=== PATIENT | male | born 1935 | race Caucasian/White ===

== ENCOUNTER 2017-09-06 07:03 | Day surgery (SDC) | payer MEDICARE, SELFPAY ==
[2017-09-03 10:33] LABS: Hematocrit 44.5 % (40-54); Hemoglobin 15.4 g/dl (13.0-16.5); Mean Corp Hgb Conc 34.6 g/gl (32-36); Mean Corpuscular Volume 89.7 fL (80-94); Platelet Count 198 K/mm3 (150-450); RBC Distribution Width CV 14.3 % (11.6-14.6); RBC Distribution Width SD 46.1 fl (35.1-43.9); Red Blood Count 4.96 M/mm3 (4.6-6.2); White Blood Count 8.6 K/mm3 (4.4-11.0)
[2017-09-03 10:34] LABS: Scan Indicated on CBC? Y/N NO
[2017-09-03 10:56] LABS: Anion Gap 6 (5-15); BUN 16 mg/dL (7-18); BUN/Creat Ratio 16.5 RATIO (10-20); Calcium,Total 8.9 mg/dL (8.5-10.1); Chloride 109 mmol/L (98-107); Creatinine, Serum 0.97 mg/dL (0.70-1.30); EST Glomerular Filtration Rate 80 mL/min (>60); Est Glom Filt Rate - Afr Amer 96 mL/min (>60); Glucose 112 mg/dL (74-106); Potassium 3.7 mmol/L (3.5-5.1); Sodium Level 143 mmol/L (136-145)
[2017-09-06 10:46] LABS: ACT Activated Clotting Time 142 sec (74-137)
[2017-09-06 10:46] LABS: ACT Activated Clotting Time 263 sec (74-137)
--- NOTE | 2017-09-06 11:03 | OP.PCM_ITS ---
Problem List (1) PAD (peripheral artery disease) Status: Acute Report of Operation Date of Procedure: 09/06/17 Pre-Operative Diagnosis: Stenosis distal left superficial femoral artery with symptomatic claudication Post-Operative Diagnosis: Same Surgery/Procedure Performed:: Abdominal pelvic left lower extremity arteriogram with 5 x 2 Powerflex and 6 x 6 coated balloon gluten ox therapy Description of Surgical Findings:: Amount and informed consent was obtained. 81-year-old gent was taken to special procedures lab. Throughout the procedure he received total 50 mcg of fentanyl 2 mg of Versed is intravenous sedation. Timeout and informed consent was obtained. The right groin was sterilely prepped draped. 2% lidocaine was used as local anesthetic. 2% lidocaine was instilled under ultrasound guidance. Micropuncture is instilled needle was inserted under ultrasound guidance into the right common femoral artery. Micropuncture sheath inserted. 035 J-wire was inserted 5 American short sheath dilator was inserted. Using 035 angled Glidewire and a 5 American universal flush catheter was placed into the abdominal aorta. Using 15 cc a second for 15 cc of Visipaque contrast aortogram was obtained in the AP view. This demonstrated moderate mild 30% stenosis of the proximal right common iliac. Otherwise bilateral common iliacs external iliacs and internal iliacs appeared patent. With significant difficulty at this point and throughout the procedure the flush catheter was used to gain access to the left iliac system however due to the tortuosity of the right common iliac and the acute angulation of the aorta getting devices to track over the aorta was challenging. I was able to put the flush catheter. I was able to obtain a study of the left superficial femoral artery demonstrating a widely patent short stent 6 mm stent in the distal left SFA. However just at the top of the patella there was a high-grade 95% stenosis of the SFA/ popliteal. There did appear to be initial three-vessel runoff. With effort then I was able to place a stiff guidewire then placed a burn catheter but it would not advance I then placed an 035 Quick cross catheter was able to utilize the floppy guidewire and a 035 stiff Glidewire and a 035 Magic wire and was very eventually able to get purchase enough to then advance a 5 American 45 cm sheath. Having achieved that the patient received 8000 units of heparin. Over a stiff Glidewire I was able to place a 5 x 2 Powerflex balloon into the distal left SFA/proximal popliteal angioplasty was performed up to 14 dipesh of pressure. Completion view demonstrated just mild residual stenosis. I then placed a 6 x 60 mm Lutonx drug-coated balloon. That was inflated to 10 dipesh of pressure and held for 3 minutes. Lesion view was obtained demonstrating patency. Images demonstrate a patent aorta. Mild diffuse disease of bilateral common iliacs. 30% stenosis of the right proximal common iliac. Patent left common femoral artery profundofemoral artery and superficial femoral artery. There is a 6 x 30 mm stent distally in the left superficial femoral artery that is widely patent. There is an area of 95% stenosis of the distal left superficial femoral artery just at the popliteal. There is three-vessel runoff to the left lower extremity. Subsequent to the angioplasty and drug-coated balloon therapy of the distal left superficial femoral artery proximal popliteal artery lesion there appears to be good resolution. Impression successfully treated distal left superficial femoral artery/ popliteal graft Quan Mackenzie M.D., F.A.C.S. Type of Anesthesia:: IV Sedation
[2017-09-06 15:45] VITALS: BP 150/76; PULSE 74; RESP 12; TEMP 36.7; O2SAT 88
[2017-09-06 16:16] VITALS: BP 154/68; PULSE 74; RESP 12; O2SAT 92
[2017-09-06 16:45] VITALS: BP 177/65; PULSE 82; RESP 12
[2017-09-06 17:11] VITALS: PULSE 85; RESP 12; O2SAT 91
[2017-09-06 17:49] VITALS: BP 148/76; PULSE 77; RESP 12; O2SAT 94
[2017-09-06 18:34] VITALS: BP 162/78; PULSE 84; RESP 12
--- NOTE | 2017-09-06 18:35 | NURSING ---
PT UP AMB. TO BR VOIDED, WASHED UP RETURNED TO BED. NO DIZZINESS LIGHTHEADNESS. GROIN RECHECK D&I. ASSISTING WITH DRESSING.
== END 2017-09-06 18:40 | disposition home or self-care (01) ==
LOC: CLSP 07:05 → PCU 15:50
PROVIDERS: Family Provider Family Medicine; PCP Family Medicine; Visit Provider Surgery
DX: I73.9 Peripheral vascular disease, unspecified (principal); I70.212 Atherosclerosis of native arteries of extremities with intermittent claudication, left leg; I10 Essential (primary) hypertension; E78.5 Hyperlipidemia, unspecified; K21.9 Gastro-esophageal reflux disease without esophagitis; N40.0 Benign prostatic hyperplasia without lower urinary tract symptoms; F41.9 Anxiety disorder, unspecified; Z79.82 Long term (current) use of aspirin; Z79.899 Other long term (current) drug therapy; Z87.891 Personal history of nicotine dependence
CPT/HCPCS: 36200; 36245; 36415; 37224; 75625; 75710; 76937; 80048; 85027; 85347; 99152; 99153; C1725; J7030; J7040; Q9967; C1760; C1769; C1887; C1894

== ENCOUNTER → 2017-09-21 15:52 | Outpatient (CLI) | payer MEDICARE, SELFPAY ==
[2017-09-21 15:57] LABS: Mucous, Urine 0 SEEN /hpf (<or=2+)
[2017-09-21 16:02] LABS: Color, Urine Red (Yellow); Glucose, Dipstick Normal (Normal); Ketone-Dipstick 5 mg/dl (Negative); Leukocyte Esterase-Dipstick 500 /ul (Negative); Nitrite-Dipstick Positive (Negative); Occult Blood-Urine 250 /ul (Negative); Protein-Dipstick 100 mg/dl (Negative); Specific Gravity, Urine 1.015 (1.002-1.030); Urine Bilirubin Dipstick Negative (Negative); Urine Clarity Cloudy (Clear); Urine Urobilinogen 1 mg/dl (Normal)
[2017-09-21 16:33] LABS: Red Blood Cells-Urine > 100 SEEN /hpf (0-5); White Blood Cells >100 SEEN /hpf (0-5)
[2017-09-21 16:34] LABS: Bacteria 4+ /hpf (None Seen); Squamous Epithelial Cells - UA 0-5 SEEN /hpf (0-5)
== END ==
PROVIDERS: Family Provider Family Medicine; PCP Family Medicine; Visit Provider Physician Assistant
DX: R31.9 Hematuria, unspecified (principal)
CPT/HCPCS: 81001; 87086; 87088; 87186

== ENCOUNTER → 2017-10-01 09:40 | Outpatient (CLI) | payer MEDICARE, SELFPAY ==
--- NOTE | 2017-10-01 17:33 | LEAS ---
Arterial Study - Arterial Study Arterial Study: Bilateral lower extremity noninvasive arterial exam with exercise Patient with peripheral vascular occlusive disease and recent left lower extremity endovascular intervention with stenting Right lower extremity The right PT and DP ankle-brachial digit rest are 1.1 and 0.96 respectively with triphasic Doppler waveforms. Volume pulse recordings demonstrate normal amplification the calf and the ankle and digital waveforms are well maintained. With exercise the right LISA goes from 1.012 medially after exercise at 0.92 which demonstrates a minimal decline. Left lower extremity Left lower extremity at rest demonstrates PT and DP ankle-brachial indices rest of 1.08 and 1.08 respectively. Left PT and DP ankle-brachial indices at rest are triphasic. Volume pulse recordings demonstrate normal waveform at the calf ankle and digital level. With exercise left LISA goes from resting 1.08 after exercise at 1.1 which is completely normal Impression Findings consistent with normal right lower extremity resting indices with minimal decline on exercise. Left lower extremity demonstrates normal indices with rest and exercise consistent with no hemodynamic dynamically significant vascular occlusive disease Quan Mackenzie M.D., F.A.C.S.
== END ==
PROVIDERS: Family Provider Family Medicine; PCP Family Medicine; Visit Provider Surgery
DX: I73.9 Peripheral vascular disease, unspecified (principal)
CPT/HCPCS: 93924

== ENCOUNTER → 2017-10-11 18:30 | Outpatient (CLI) | payer MEDICARE, SELFPAY | PROVIDERS: Family Provider Family Medicine; PCP Family Medicine; Visit Provider Nurse Practitioner Adult Health | DX: N39.0 Urinary tract infection, site not specified (principal); R31.9 Hematuria, unspecified | CPT/HCPCS: 87077; 87086; 87088; 87186 ==

== ENCOUNTER 2019-08-22 09:59 | Emergency (ER) | payer MEDICARE, SELFPAY ==
[2019-08-22 10:00] VITALS: BP 179/65; PULSE 80; RESP 22; TEMP 36.4; O2SAT 94; BMI 24.8
--- NOTE | 2019-08-22 10:10 | EKG12_ITS ---
Test Reason : CP Blood Pressure : / mmHG Vent. Rate : 081 BPM Atrial Rate : 081 BPM P-R Int : 148 ms QRS Dur : 096 ms QT Int : 370 ms P-R-T Axes : 063 -02 023 degrees QTc Int : 429 ms Normal sinus rhythm Nonspecific ST abnormality Abnormal ECG Confirmed by ROSA MANUEL, SKYLER ([id number]), image editor LEVAR VALE ([id number]) on 08/25/2019 12:31:27 PM Referred By: GINA Confirmed By:SKYLER LEE MD
--- NOTE | 2019-08-22 10:10 | ED.VIS.GEN ---
History of Present Illness Chief Complaint: Chest Pain Informant: Patient, Family Onset: Weeks Timing: Intermittent Current Severity: Moderate Maximum Severity: Moderate Narrative: Patient presents with intermittent central chest pain is been ongoing for the past couple of weeks. This morning pain seemed to get worse. He did not feel short of breath. It is not significantly changed by activity. He does report having more reflux and belching recently. He is on Prilosec for GERD. Patient denies history of cardiac disease but also denies having prior stress test or heart cath. - Past Medical History (1) Anxiety Status: Chronic (2) BPH (benign prostatic hyperplasia) Status: Chronic (3) GERD (gastroesophageal reflux disease) Status: Chronic (4) Hypertension Status: Chronic (5) High cholesterol Status: Chronic (6) PAD (peripheral artery disease) Status: Chronic Past Medical History - Allergies and Home Meds Allergies/Adverse Reactions: Allergies lisinopril Allergy (Verified 08/22/19 10:03) Unknown Sulfa (Sulfonamide Antibiotics) Allergy (Verified 08/22/19 10:03) Unknown Primary Care Physician: Brian Mackenzie III, MD [Primary Care Provider] - Prior records reviewed: Yes Lives: Spouse/ Significant Other Smoking Status: Former smoker Review of Systems General: Denies: Chills, Fever Eyes: Denies: Visual changes - bilaterally ENT: Denies: Bilateral ear pain Cardiovascular: Reports: Chest pain. Denies: Palpitations Respiratory: Denies: Dyspnea, Cough Gastrointestinal: Denies: Abdominal pain, Nausea, Vomiting Musculoskeletal: Denies: Swelling, Extremity Pain Skin: Denies: Rash Neurological: Denies: Headache Hematologic: Denies: Easy bruising, Easy bleeding Allergy: Denies: Uticaria Physical Exam Vital Signs/Narrative: Vital Signs Temp Pulse Resp BP Pulse Ox 08/22/19 10:00 97.5 F L 80 22 H 179/65 H 94 Inital Vital Signs reviewed: Yes General: Well nourished, Well developed Head: Normocephalic ENT: Moist mucous membranes Neck: Supple Cardiovascular: Regular rate, Regular rhythm Respiratory: No distress, CTA bilaterally, Chest nontender Abdomen: Soft, Nontender Extremities: Nontender Skin: Normal color Neurological: Alert, Oriented x3 Psychological: Normal affect Diagnostic/Tx/Re-eval Impressions Chest X-Ray 08/22/19 10:32 IMPRESSION: No acute abnormality is seen. Electronically Signed: Jose Marrero, at 11:28 EST , Service support , 08/22/19 10:32 Chest 1 View (Portable) [RAD] Stat Laboratory Results 08/22/19 08/22/19 10:25 10:25 WBC 8.6 RBC 5.38 Hgb 16.1 Hct 47.9 MCV 89.0 MCH 29.9 MCHC 33.6 RDW Std Deviation 44.8 H RDW Coeff of Jihan 14.3 Plt Count 196 MPV 10.8 Immature Gran % (Auto) 0.600 Neut % (Auto) 69.5 Lymph % (Auto) 13.6 L [place] % (Auto) 8.2 Eos % (Auto) 7.7 H Baso % (Auto) 0.4 Absolute Neuts (auto) 6.0 Absolute Lymphs (auto) 1.16 Nucleated RBC % 0 Sodium 139 Potassium 4.6 Chloride 107 Carbon Dioxide 28.0 Anion Gap 4 L BUN 15 Creatinine 1.01 Estim Creat Clear Calc 59.23 Est GFR (MDRD) Af Amer 91 Est GFR (MDRD) Non-Af 75 BUN/Creatinine Ratio 14.9 Glucose 100 Calcium 9.4 Troponin I < 0.015 - EKG Initial EKG Interpretation: Sinus Rhythm - Sinus 81. He has perhaps 1/[address] depression in the lateral leads. This appears similar to prior study. - Medical Decision Making Patient was given aspirin on arrival. On repeat evaluation he is resting comfortably. Patient has had intermittent symptoms for several weeks. Troponin is negative at this time. He would prefer outpatient follow-up for stress test if possible. I will speak with his physician or whoever is covering to help arrange close follow-up. ED Disposition - Plan for ED Patient: Disposition: Home or Assisted Living Diagnosis: Chest pain Instructions: CHEST PAIN, Uncertain Cause Referrals: Brian Mackenzie III, MD [Primary Care Provider] - As soon as possible Additional Instructions: As discussed, follow-up with your primary care doctor as soon as possible. They will be able to arrange an outpatient stress test. If your symptoms worsen in the meantime, please return to the ER immediately.
--- NOTE | 2019-08-22 10:32 | RAD_ITS ---
STUDY: X-RAY CHEST REASON FOR EXAM: Male, 83 years old. CHEST PAIN TECHNIQUE: Single AP portable view of the chest. COMPARISON: Comparison is made with prior study dated October 20, 2009. FINDINGS: EKG electrodes are seen. The lungs are clear and expanded. Scattered calcified granulomas. There is no demonstrated pleural abnormality. Normal size heart. Normal mediastinum and susannah. Normal visualized pulmonary arteries. There is atherosclerotic tortuosity of the aortic arch and descending thoracic aorta. There are diffuse degenerative changes of the visualized thoracic spine. Normal visualized ribs, clavicles, and shoulders. There is no demonstrated abnormality of the visualized soft tissue structures of the upper abdomen. RAD/Chest 1 View (Portable) IMPRESSION: No acute abnormality is seen. Electronically Signed: Jose Marrero, at 11:28 EST , Service support ,
[2019-08-22] MEDS: Aspirin 81 MG TAB.CHEW 324 MG PO (10:43)
[2019-08-22] MEDS: 0.9% Normal Saline 1,000 ML 150 ML IV (10:43)
[2019-08-22 10:45] LABS: Absolute Lymphocyte Count 1.16 X10^3/uL (0.83-4.51); Basophil# 0.03 X10^3/uL; Basophil% 0.4 % (0-1); Eosinophil# 0.66 X10^3/uL; Eosinophils% 7.7 % (0-5); Hematocrit 47.9 % (40-54); Hemoglobin 16.1 g/dL (13.0-16.5); Lymphocyte # 1.16 X10^3/ul (4.0); Lymphocyte % 13.6 % (19-41); Mean Corp Hgb Conc 33.6 g/dL (32-36); Mean Corpuscular Hgb 29.9 pg (27.0-32.0); Mean Platelet Vol. 10.8 fl (6.2-12.0); Monocyte% 8.2 % (0-10); NRBC Flagged by Analyzer 0 % (0-5); Neutrophil # 5.96 X10^3/uL (2.7-7.7); Neutrophil % 69.5 % (47-70); Platelet Count 196 K/mm3 (150-450); RBC Distribution Width CV 14.3 % (11.6-14.6); RBC Distribution Width SD 44.8 fl (35.1-43.9); Red Blood Count 5.38 M/mm3 (4.6-6.2); White Blood Count 8.6 K/mm3 (4.4-11.0)
[2019-08-22 10:59] LABS: Anion Gap 4 (5-15); BUN 15 mg/dL (7-18); BUN/Creat Ratio 14.9 RATIO (10-20); Calcium,Total 9.4 mg/dL (8.5-10.1); Chloride 107 mmol/L (98-107); Creatinine, Serum 1.01 mg/dL (0.70-1.30); EST Glomerular Filtration Rate 75 mL/min (>60); Est Glom Filt Rate - Afr Amer 91 mL/min (>60); Estimated Creatinine Clearance 59.23 ml/min; Glucose 100 mg/dL (74-106); Potassium 4.6 mmol/L (3.5-5.1); Sodium Level 139 mmol/L (136-145)
[2019-08-22 13:05] VITALS: BP 162/69; PULSE 69; RESP 22; O2SAT 94; O2SAT 95
== END 2019-08-22 13:06 | disposition home or self-care (01) ==
PROVIDERS: Emergency Provider Emergency Medicine; PCP Family Medicine
DX: R07.9 Chest pain, unspecified (principal); K21.9 Gastro-esophageal reflux disease without esophagitis; I10 Essential (primary) hypertension; E78.00 Pure hypercholesterolemia, unspecified; I73.9 Peripheral vascular disease, unspecified; N40.0 Benign prostatic hyperplasia without lower urinary tract symptoms; F41.9 Anxiety disorder, unspecified; Z88.8 Allergy status to other drugs, medicaments and biological substances; Z88.2 Allergy status to sulfonamides; Z87.891 Personal history of nicotine dependence
CPT/HCPCS: 71045; 80048; 84484; 85025; 93005; 96360; 96361; 99285; J7030; A4216

== ENCOUNTER → 2019-09-01 05:58 | Outpatient (CLI) | payer MEDICARE, SELFPAY ==
[2019-08-22 10:00] VITALS: BMI 24.8
--- NOTE | 2019-09-01 18:15 | STRESSREP ---
Stress Test Report 83-year-old man with a history of chest pain. Exercise myocardial perfusion stress test. Medications: Amlodipine, niacin, aspirin, hydrochlorothiazide. Stress protocol: Resting EKG demonstrates sinus bradycardia with a rate of 59 bpm normal intervals are noted resting blood pressure is 142/80 mmHg. The patient exercised according to the regular Wolf protocol for a total duration of 9 minutes. The maximum heart rate attained was 120 bpm which was 86% of maximum predicted heart rate the maximum workload was 10.1 metabolic equivalents. At rest there were no ST or T wave changes noted to suggest ischemia. At peak exercise there was approximately [address] depression noted in leads II, and I 0.[address] depression noted in lead III and aVF. The above changes are suggestive of ischemia at a workload attained. During recovery the changes reverted to baseline with upsloping. The resting blood pressure was 142/80 with a peak blood pressure 188/70 mmHg and a rate-pressure product of 22,500. No clinical angina was noted. Myocardial perfusion protocol. 11.9 mCi of technetium 99m sestamibi was injected at rest. The patient exercised for a total duration of 9 minutes and at peak exercise 33.1 mCi of technetium 99m sestamibi was injected stress images were obtained stress and rest images were reconstructed and compared in the short axis vertical long horizontal long axis. Gated images were also obtained. Perfusion SPECT analysis: Review of the stress images demonstrate evidence of a perfusion defect noted in the distal anterior wall towards the apex. The resting images demonstrate improvement in this area suggesting distal anterior ischemia. No previous infarct is noted. Gated SPECT analysis: The gated ejection fraction is noted to be 61%. Conclusion: Abnormal exercise myocardial perfusion stress test with evidence of distal anterior ischemia at a high workload. Preserved ejection fraction. Good functional capacity.
== END ==
PROVIDERS: PCP Family Medicine; Referring Provider Family Medicine; Visit Provider Family Medicine
DX: R07.9 Chest pain, unspecified (principal)
CPT/HCPCS: 78452; 93017; A9500; A4216

== ENCOUNTER 2019-09-08 08:09 | Day surgery (SDC) | payer MEDICARE, SELFPAY ==
[2019-09-04 12:22] VITALS: BMI 24.7
[2019-09-05 08:10] VITALS: BMI 24.7
[2019-09-08] VITALS (28 sets, daily range): BP systolic 136–190; BP diastolic 42–94; PULSE 53–76; RESP 12–22; TEMP 36.7–37; O2SAT 90–98; BMI 25.2; BMI 24.7
--- NOTE | 2019-09-08 10:10 | CL.D_ITS ---
Patient Name: CLARK LYLES Study Date: 09/08/2019 Performing: Dejuan Brooks MD Ht: 70.07 inches 178 cm : 1935 Wt: 171.96 lbs 78 kg Age: 83 Gender: male BSA: 1.96 PROCEDURE(S) PERFORMED FN85-MER/COR/LV OH34-QAL W OR WO PTCA, SINGLE CORONARY ARTERY CLINICAL PROFILE AND INDICATIONS Indications: Worsening Angina Heart Failure: None Stress/Imaging Date: 09/01/2019Stress Test with SPECT MPI: Positive Intermediate Risk CAD Presentations: Unstable angina. CONCLUSIONS : Severe single-vessel disease involving a calcified mid left anterior descending artery. RECOMMENDATIONS Referred for immediate PCI DESCRIPTION OF PROCEDURE The patient arrived to the procedure lab. The risks and benefits of the procedure as well as a full d escription of our services here and current unavailability of surgical backup were fully explained to the patient and/or their significant other prior to the catheterization. The Timeout was completed, verifying the correct patient and procedure. The patient's procedural site was prepped and draped in the usual fashion. Local anesthetic was given subcutaneously to right groin region with Lidocaine 2%. Using a modified Seldinger technique, arterial access was obtained via the right femoral artery, a 5 Fr sheath was inserted. Left Coronary Artery selective angiography was performed in multiple views u sing a 5 Fr. JL4 catheter. Right Coronary Artery selective angiography was then performed in multiple views using a 5 Fr. 3DRC (Russ) catheter. Left Ventriculography was performed in PATTERSON projection using a 5 Fr. Pigtail catheter. LV to AO pullback pressures were then recorded. CORONARY ANGIOGRAPHY DOMINANCE: Left Dominant LEFT HEART ASSESSMENT Left Ventricular Ejection Fraction: by LV Gram 50 % Anterior Hypokinesis - Mild Normal Left Ventricular systolic function LEFT MAIN: Mild calcification, 30 % Stenosis LEFT ANTERIOR DESCENDING ARTERY: MID LAD: long eccentric calcified 95 % Stenosis CIRCUMFLEX ARTERY: Mild luminal irregularities less than 30% RIGHT CORONARY ARTERY: No significant disease noted COMPLICATIONS PROCEDURE MEDICATIONS Versed 1 mg IV Versed 1 mg IV Oxygen: 2 L/min via nasal cannula SUMMARY OF HEMODYNAMIC DATA Time AIR REST ECG 08:41:56 AO 141/61 (90) SA 09:35:30 LV 132/7, 12 09:44:35 LV 132/6, 12 09:44:42 LV 125/9, 16 09:45:32 LV 123/9, 13 09:45:38 LVp 125/14, 15 09:45:42 AOp 133/56 (87) 09:45:47 Signed By Dejuan Brooks MD On 09/08/2019 10:09:41 Dejuan Brooks MD
[2019-09-08 10:56] LABS: ACT Activated Clotting Time 191 sec (74-137)
--- NOTE | 2019-09-08 11:05 | CL.I_ITS ---
Patient Name: CLARK LYLES Study Date: 09/08/2019 Performing: Dayday Domínguez MD Ht: 70.08 inches 178 cm : 1935 Wt: 171.96 lbs 78 kg Age: 83 Gender: male BSA: 1.96 PROCEDURE(S) PERFORMED OK72-NLU W OR WO PTCA, SINGLE CORONARY ARTERY CLINICAL PROFILE AND CO-MORBIDITIES Indications: Worsening Angina, New Onset Angina <= 2 months, Worsening Angina, Suspected CAD Heart Failure: None Stress/Imaging Date: 09/01/2019 Stress Test with SPECT MPI: Positive Intermediate Risk Angina Classification Anginal Classification w/in 2 Weeks: CCS I CAD Presentations: Unstable angina. Unstable angina. Comorbidities/Risk Factors: Hypertension Dyslipidemia Peripheral Arterial Disease CONCLUSIONS Successful PTCA/JAM mid LAD using a 2.5 x 32 Promus Synergy, post dilated proximally with a 3.0 x 8 N C balloon; 85%-->0%, no dissection or encroachment on septals or diagonals. Long 45 cm 6Fr needed for aorto-iliac tortuosity. RECOMMENDATIONS Highly recommend quitting all tobacco products Follow up with primary fire prevention engineer Risk factor modification ASA Indefinitley Plavix for at least 12 months Routine post interventional care Refer for Outpatient Cardiac Rehab Manual sheath removal per protocol Follow up with Dr. Brooks Unable to close RFA with Mynx d/t anatomy. No impact on non-obstructive LM D/w Dr Brooks. DESCRIPTION OF PROCEDURE The patient arrived to the procedure lab. The risks and benefits of the procedure as well as a full d escription of our services here and current unavailability of surgical backup were fully explained to the patient and/or their significant other prior to the catheterization. The Timeout was completed, verifying the correct patient and procedure. The patient's procedural site was prepped and draped in the usual fashion. Local anesthetic was given subcutaneously to right groin region with Lidocaine 2% Using a modified Seldinger technique,arterial access was obtained via the right femoral artery, a 5Fr sheath was inserted. Left Coronary Artery selective angiography was performed in multiple views usin g a 5 Fr. JL4 catheter. Right Coronary Artery selective angiography was then performed in multiple vi ews using a 5 Fr. 3DRC (Russ) catheter. Left Ventriculography was performed in PATTERSON projection usi ng a 5 Fr. Pigtail catheter. LV to AO pullback pressures were then recorded.The images were reviewed and options discussed. A decision was then made to proceed with an Intervention, IVUS o r other adjunct procedure. Arterial sheath was exchanged for a 6 Fr 45cm Sheath. EBU 3.0 Guide catheter was inserted and eng aged into the LCA. BMW Phoenix Guide wire was advanced to the LAD. Emerge 2.0 x 12 Balloon catheter was inserted. Balloon catheter was advanced across lesion in the LAD, mid. PTCA balloon inflated at 7 atms for 15 secs. PTCA balloon inflated at 6 atms for 9 secs. Synergy 2.5 x 32 Drug Eluting stent w as inserted. Drug Eluting stent was advanced across the lesion in the LAD, mid. NC Emerge 3.0 x 8 Bal loon catheter was inserted. Balloon catheter was advanced across lesion in the LAD, mid. Contrast was injected through the sheath and the Right Iliac and Femoral artery were assessed for possible closur e device. The arterial sheath was sutured in place and capped INTERVENTION INFORMATION LESION SITE: LAD (Mid) Lesion Complexity: High/C, lesion at bifurcation: No, thrombus present: No, lesion length: 32 mm, cul prit lesion: Yes Pre Stenosis: 85 % Pre intervention MATHEUS flow: 3 PROCEDURE: Drug Eluting Stent with pre and post dilatation Post Stenosis: 0 % Post intervention MATHEUS flow: 3 Lesion Devices: Moyer .014 BMW Phoenix Straight 190cm Cook 6F 45cm Sheath Pledge51tronic 6 Fr EBU3.5 100cm Guide Catheter Sal Sci EMERGE MR 2.00x12 BALLOON Sal Sci Synergy MR JAM 2.50x32 Sal Sci NC EMERGE MR 3.00x08 BALLOON COMPLICATIONS No Complications PROCEDURE MEDICATIONS Versed 1 mg IV Versed 1 mg IV Oxygen: 2 L/min via nasal cannula Heparin 6000 unit(s) IV 09/08/2019 10:25:28 Nitro 200 mcg IC 09/08/2019 10:27:04 Nitro 200 mcg IC 09/08/2019 10:27:04 IV Bolus: .9 NaCl 250 ml total 09/08/2019 10:25:40 SUMMARY OF HEMODYNAMIC DATA Time AIR REST ECG 08:41:56 AO 141/61 (90) SA 09:35:30 LV 132/7, 12 09:44:35 LV 132/6, 12 09:44:42 LV 125/9, 16 09:45:32 LV 123/9, 13 09:45:38 LVp 125/14, 15 09:45:42 AO 133/56 (87) 09:45:47 Signed By Dayday Domínguez MD On 09/08/2019 11:05:09 Dayday Domínguez MD
[2019-09-08] MEDS: 0.9% Normal Saline 1,000 ML 150 ML IV (11:15)
--- NOTE | 2019-09-08 11:29 | EKG12_ITS ---
Test Reason : AM EKG Blood Pressure : / mmHG Vent. Rate : 065 BPM Atrial Rate : 065 BPM P-R Int : 134 ms QRS Dur : 094 ms QT Int : 406 ms P-R-T Axes : 029 -04 -08 degrees QTc Int : 422 ms Normal sinus rhythm Normal ECG When compared with ECG of 08-SEP-2019 11:17, MANUAL COMPARISON REQUIRED, DATA IS UNCONFIRMED Confirmed by BRANDO GOSS ([id number]), medical transcription editor LEVAR VALE ([id number]) on 09/12/2019 1:31:16 PM Referred By: ROSA Confirmed By:BRANDO GOSS
[2019-09-08] MEDS: LORazepam 1 MG Tablet PO (12:44)
--- NOTE | 2019-09-08 13:11 | CRPH1.INSTRU ---
General Education CAD and cardiac anatomy and function:: Patient communicates acknowledgment Explanation of diagnoses and procedures:: Patient communicates acknowledgment Sign/Symptoms of NV:: Patient communicates acknowledgment Antiplatelet therapy: Patient communicates acknowledgment Proper use of NTG-SL: Not instructed Emergency procedures and activation of EMS: Patient communicates acknowledgment Compliance of all prescribed medications: Patient communicates acknowledgment Smoking Nicotine/Smoking Response Code:: Patient communicates acknowledgment Dyslipidemia Dyslipidemia Response Code:: Patient communicates acknowledgment Overweight/Obesity Patient Overweight/Obesity Risk Factors Are:: BMI Normal [24-29 & > 65 years old] Overweight/Obesity:: Patient communicates acknowledgment Hypertension Hypertension:: Patient communicates acknowledgment Heart Disease Heart Disease Response Code:: Patient communicates acknowledgment Diabetes Diabetes:: Patient communicates acknowledgment Metabolic Syndrome Metabolic Syndrome Response Code:: Patient communicates acknowledgment Sedentary Sedentary Response Code:: Patient communicates acknowledgment Stress Stress Response Code:: Patient communicates acknowledgment
--- NOTE | 2019-09-08 13:13 | CRPHASE1 ---
Patient Communication PHII Cardiac Rehab Discussed with Patient:: Yes Guide to Cardiac Rehab Given to Patient:: Yes - pt chooses [facility] Cardiac Rehab Facility Choice List Given to Patient:: Yes Choice Program [facility] CR PHII:: Communication Given to CR, Refer to [facility] [employer] Hanger Helper:: Dayday Domínguez Phase II Cardiac Rehab:: Yes Sessions:: 36 sessions - 3 days/wk, 12 weeks Risk Factors/Lifestyle Height: 5 ft 10 in Weight:: 78.018 kg BMI: 24.7 Family History: Family History (Last Reviewed 09/04/19 @ 14:09 by Dejuan Brooks MD) Father CVA (cerebral vascular accident) Mother CVA (cerebral vascular accident) Hypertension Family History: Hypertension, Stroke Phase I Education Given On:: [place], Nutrition, Antiplatelet medication, CHF, Smoking cessation, Diabetes - Type I, Diabetes - Type II Knowledge of Condition:: Yes Hospital Course Cardiac Cath Date:: 09/08/19 Cardiac Rehabilitation Info Cardiac Rehabilitation Program Information: Cardiac Rehabilitation is important for patients like you who are recovering from a heart problem. Cardiac rehabilitation programs are recognized as integral to the continued care of the patient with coronary heart disease. The cardiac rehabilitation program is designed to optimize a patient's physical, psychological, and social functioning. Health care worker work in cardiac rehabilitation programs and assist you with getting the treatments you need to get stronger and healthier - like exercise, healthy eating habits, and medications. Cardiac rehabilitation has been show to help people with heart problems live longer and have better life enjoyment than people who do not go to cardiac rehabilitation. Please contact the Cardiac Rehabilitation Program at [facility] [place] at in two weeks if you have not heard from them.
[2019-09-08] MEDS: Pramipexole Di-HCl 0.25 MG Tablet PO ×2 (15:27→22:09)
[2019-09-08] MEDS: Niacin SA 500 MG Tablet PO (15:28)
[2019-09-08] MEDS: Morphine 4 MG/ML Syringe IV (15:39)
[2019-09-08 15:51] LABS: ACT Activated Clotting Time 164 sec (74-137)
[2019-09-08] MEDS: Losartan Potassium 50 MG Tablet PO (20:01)
[2019-09-08] MEDS: Latanoprost 0.005% 1 Bottle 1 DRP OPHTHALMIC (22:09)
[2019-09-09] VITALS (13 sets, daily range): BP systolic 128–163; BP diastolic 32–74; PULSE 64–75; RESP 14–24; TEMP 36.8–37.2; O2SAT 91–96
[2019-09-09 04:14] LABS: Hematocrit 40.9 % (40-54); Hemoglobin 14.2 g/dL (13.0-16.5); Mean Corp Hgb Conc 34.7 g/dL (32-36); Mean Corpuscular Hgb 30.5 pg (27.0-32.0); Mean Corpuscular Volume 87.8 fL (80-94); Mean Platelet Vol. 10.3 fl (6.2-12.0); Platelet Count 191 K/mm3 (150-450); RBC Distribution Width CV 13.6 % (11.6-14.6); RBC Distribution Width SD 43.8 fl (35.1-43.9); Red Blood Count 4.66 M/mm3 (4.6-6.2); White Blood Count 12.4 K/mm3 (4.4-11.0)
[2019-09-09 04:33] LABS: ALB/GLOB Ratio 1.3 RATIO (0.9-2.4); AST(SGOT) 14 U/L (15-37); Alanine Aminotransfer ALT/SGPT 22 U/L (16-61); Albumin, Serum 3.4 g/dL (3.2-5.0); Alkaline Phosphatase 48 U/L (45-117); Anion Gap 6 (5-15); BUN 19 mg/dL (7-18); BUN/Creat Ratio 17.8 RATIO (10-20); Calcium,Total 8.4 mg/dL (8.5-10.1); Chloride 107 mmol/L (98-107); Creatinine, Serum 1.07 mg/dL (0.70-1.30); EST Glomerular Filtration Rate 70 mL/min (>60); Est Glom Filt Rate - Afr Amer 85 mL/min (>60); Estimated Creatinine Clearance 55.91 ml/min; Globulin 2.7 g/dL (2.2-4.2); Glucose 99 mg/dL (74-106); Potassium 3.5 mmol/L (3.5-5.1); Protein, Total 6.1 g/dL (6.4-8.2); Sodium Level 139 mmol/L (136-145)
[2019-09-09] MEDS: Pramipexole Di-HCl 0.25 MG Tablet PO (06:04)
[2019-09-09] MEDS: 0.9% Saline Lock 10 ML Syringe IV (06:04)
--- NOTE | 2019-09-09 08:00 | PCM.PN.CARD ---
Subjectve: Patient seen and evaluated. Appears to be stable no events overnight Objective: Vital Signs Temp Pulse Resp BP Pulse Ox 98.6 F 64 14 137/74 H 95 09/09/19 04:00 09/09/19 07:00 09/09/19 07:00 09/09/19 07:00 09/09/19 07:01 Oxygen Flow Rate (L/min) 2 Oxygen Delivery Method Nasal Cannula Weight: 171 lb 8.314 oz Body Mass Index (BMI) 25.2 Intake and Output for Last 24 Hours 09/07/19 09/08/19 09/09/19 23:59 23:59 23:59 Intake Total 0 / 2090 360 / 360 Output Total 1625 / 1625 275 / 275 Balance 465 / 465 85 / 85 General: Awake, Alert, Oriented x 3 HEENT: PERRL, EOMI, Sclera Non Icteric Neck: Supple, Good ROM, No Lymph Node Enlargement Lungs: Clear to auscultation Cardiovascular: Regular Rhythm, Normal S1, Normal S2, No Murmurs, No Rubs, No Gallops Vascular: No Carotid Bruits, Normal Femoral Pulses, Normal Radial Pulses, Normal Dorsalis Pedal Pulse, Normal Posterior Tibial Pulses Abdomen: Bowel Sounds Present, Soft, Non Tender, No HSM, No Organomegaly Extremities: No Cyanosis, No Clubbing, No edema Musculoskeletal: No Erythema Skin: No Rashes Lymphatic: No Lymph Node Enlargement Neurological: No Focal Motor or Sensory Deficit Psych/Mental Status: Appropriate 09/09/19 04:05: WBC 12.4 H, RBC 4.66, Hgb 14.2, Hct 40.9, MCV 87.8, MCH 30.5, MCHC 34.7, Plt Count 191, MPV 10.3 09/09/19 04:05: Sodium 139, Potassium 3.5, Chloride 107, Carbon Dioxide 26.0, Anion Gap 6, BUN 19 H, Creatinine 1.07, Est GFR (MDRD) Af Amer 85, Est GFR (MDRD) Non-Af 70, BUN/Creatinine Ratio 17.8, Glucose 99, Calcium 8.4 L, Total Bilirubin 1.20 H Rhythm: EKG: ECHO: Stress Test: Cardiac Cath: PCI: CT Surgery: Holter monitor: EPS: PPM: CXR: Chest CT Scan: Medical Necessity - Tobacco Use Smoking Status: Former smoker Tobacco Use: Non-smoker Assessment/Plan Status post elective angioplasty and stenting of the proximal left anterior descending artery. Patient appears to have done well overnight. No hematoma noted no EKG changes. Laboratory test stable. Patient counseled for cardiac rehabilitation. The patient will be discharged for outpatient follow-up on aspirin, clopidogrel, statin, beta-becka. Patient allergic to DYLAN inhibitor.
--- NOTE | 2019-09-09 08:03 | PCM.DC.CCA ---
Discharge Diet: Low fat/ Low Cholesterol Lifting Restrictions: 10 pounds and also avoid any pushing or pulling for 3 days after your test. Additional Activity Instructions:: You must have someone drive you home. Do not drive until instructed by your doctor. You must have someone stay with you all night after your test. Rest in bed or on the couch until the next morning. Limit the number of times you go up and down stairs the day of your test. Apply pressure to the puncture site if you sneeze or cough. Call your doctor if your incision/area has: Increased Pain/ Swelling, Increased Redness, Foul Smelling Discharge, Swelling at the incision site Call your doctor if you observe: Fever of 101 or Higher Additional Dressing/Incision Instructions:: Keep the dressing (bandage) on until the next morning. You may then shower, but do not take a tub bath for 5 days after your test. It is normal to have some tenderness and discomfort at the puncture site. Sometimes bruising also occurs. However, if pain, numbness, or coldness occurs below the puncture site (in your leg, toes, arms or fingers) call your doctor at once. You may have a small, marble sized knot at the puncture site. This is normal. Do not rub it. It will go away in 4-6 weeks. Bleeding can occur from the area where the puncture was done. Blood may spurt or drip from the site. If blood spurts, apply pressure right away to stop bleeding and call 911. Although rare, bleeding into the tissue (hematoma) can also occur. If this happens, a large, firm area goose egg under the skin will appear. If any of these occur, lie down as flat as you can and have someone apply firm pressure to the cath site with a gauze pad or a clean washcloth for 10-15 minutes. Call 911 or go to the Emergency Department. Allergies/Adverse Reactions: Allergies Sulfa (Sulfonamide Antibiotics) Allergy (Verified 09/08/19 11:43) Rash lisinopril Adverse Reaction (Verified 09/08/19 11:43) Other cough Medications to take at Discharge Aspirin [Aspirin, Baby] 81 mg PO DAILY@0800 03/17/14 Citalopram [Celexa] 20 mg PO DAILY 03/17/14 Hydrochlorothiazide 12.5 mg PO DAILY 03/17/14 Omeprazole [Prilosec] 20 mg PO DAILY 03/17/14 Multivitamin [Daily Multiple Vitamin] 1 ea PO DAILY 05/16/17 ropinirole 0.5 mg tablet 0.5 mg PO TID 08/20/17 amlodipine 10 mg tablet 10 mg PO DAILY tab 09/04/19 clopidogrel 75 mg tablet 75 mg PO DAILY #90 tab 09/04/19 latanoprost 0.005 % eye drops 1 drop OPHTHALMIC DAILY 09/04/19 metoprolol succinate 50 mg tablet,extended release 24 hr 50 mg PO DAILY #90 tab 09/04/19 nitroglycerin 0.4 mg sublingual tablet 0.4 mg SUBLINGUAL Q5-15M tab 09/04/19 tamsulosin 0.4 mg capsule 0.4 mg PO DAILY cap 09/04/19 Atorvastatin Calcium 10 mg PO DAILY #60 tab 09/09/19 The following prescriptions were given: Atorvastatin Calcium 10 mg PO DAILY #60 tab Transmission Status: Pending to [facility]30 Orders to be completed after discharge: Phase II, Outpatient Cardiac Rehab Location: None Selected Primary Care Physician: Brian Mackenzie III, MD [Primary Care Provider] - Test Results: Test results from this visit will be discussed in further detail at your follow-up appointment, if applicable. Please Follow Up With: [facility]. they will call Proposed Discharge Date: 09/09/19 Cardiac Rehabilitation Info Cardiac Rehabilitation Program Information: Cardiac Rehabilitation is important for patients like you who are recovering from a heart problem. Cardiac rehabilitation programs are recognized as integral to the continued care of the patient with coronary heart disease. The cardiac rehabilitation program is designed to optimize a patient's physical, psychological, and social functioning. Health healthcare project manager work in cardiac rehabilitation programs and assist you with getting the treatments you need to get stronger and healthier - like exercise, healthy eating habits, and medications. Cardiac rehabilitation has been show to help people with heart problems live longer and have better life enjoyment than people who do not go to cardiac rehabilitation. Please contact the Cardiac Rehabilitation Program at [facility] at in two weeks if you have not heard from them.
[2019-09-09] MEDS: Aspirin 81 MG TAB.CHEW PO (09:35)
[2019-09-09] MEDS: Citalopram 20 MG Tablet PO (09:35)
[2019-09-09] MEDS: Niacin SA 500 MG Tablet PO (09:35)
[2019-09-09] MEDS: hydroCHLOROthiazide 12.5mg 12.5 MG PO (09:35)
[2019-09-09] MEDS: Tamsulosin HCl 0.4 MG Capsule PO (09:35)
[2019-09-09] MEDS: Pantoprazole Sodium 20 MG Tablet PO (09:36)
[2019-09-09] MEDS: Clopidogrel Bisulfate 75 MG Tablet PO (09:36)
[2019-09-09] MEDS: amLODIPine 10 MG Tablet PO (09:36)
[2019-09-09] MEDS: Metoprolol(XL)Succ 50 MG Tablet PO (09:37)
--- NOTE | 2019-09-09 10:00 | EKG12_ITS ---
Test Reason : POST STENT Blood Pressure : / mmHG Vent. Rate : 051 BPM Atrial Rate : 051 BPM P-R Int : 158 ms QRS Dur : 088 ms QT Int : 442 ms P-R-T Axes : 060 008 -02 degrees QTc Int : 407 ms Sinus bradycardia Otherwise normal ECG When compared with ECG of 22-AUG-2019 10:01, Vent. rate has decreased BY 30 BPM Confirmed by BRANDO GOSS ([id number]), digital editor LEVAR VALE ([id number]) on 09/12/2019 1:30:27 PM Referred By: Monique GOSS Confirmed By:BRANDO GOSS
== END 2019-09-09 10:30 | disposition home or self-care (01) ==
LOC: CLSP 08:11 → ICU 09-10 09:16
PROVIDERS: Internal Medicine Cardiovascular Disease; PCP Family Medicine; Visit Provider Internal Medicine Cardiovascular Disease
DX: I25.110 Atherosclerotic heart disease of native coronary artery with unstable angina pectoris (principal); I10 Essential (primary) hypertension; E78.5 Hyperlipidemia, unspecified; I73.9 Peripheral vascular disease, unspecified; N40.0 Benign prostatic hyperplasia without lower urinary tract symptoms; K21.9 Gastro-esophageal reflux disease without esophagitis; F41.9 Anxiety disorder, unspecified; R94.39 Abnormal result of other cardiovascular function study; Z79.02 Long term (current) use of antithrombotics/antiplatelets; Z79.82 Long term (current) use of aspirin; Z79.899 Other long term (current) drug therapy; Z87.891 Personal history of nicotine dependence
CPT/HCPCS: 80053; 85027; 85347; 92928; 93005; 93458; 99152; 99153; J7030; J7040; Q9967; A4216; C1725; C1769; C1874; C1887; C1894; C9600

== ENCOUNTER 2020-01-18 06:53 | Observation (INO) | payer MEDICARE, SELFPAY ==
[2019-09-08 13:16] VITALS: BMI 24.7
[2020-01-16 09:46] VITALS: BMI 24.0
[2020-01-18] VITALS (11 sets, daily range): BP systolic 118–159; BP diastolic 47–71; PULSE 50–71; RESP 16–18; TEMP 36.4–36.7; O2SAT 94–98; BMI 23.6; BMI 23.1
[2020-01-18 07:20] LABS: Absolute Lymphocyte Count 0.84 X10^3/uL (0.83-4.51); Absolute Neutrophil Count 5.2 X10^3/uL (2.0-7.7); Basophil# 0.03 X10^3/uL; Basophil% 0.4 % (0-1); Eosinophil# 0.32 X10^3/uL; Eosinophils% 4.5 % (0-5); Hematocrit 39.2 % (40-54); Hemoglobin 13.1 g/dL (13.0-16.5); Lymphocyte # 0.84 X10^3/ul (4.0); Lymphocyte % 11.9 % (19-41); Mean Corp Hgb Conc 33.4 g/dL (32-36); Mean Corpuscular Hgb 29.8 pg (27.0-32.0); Mean Corpuscular Volume 89.3 fL (80-94); Mean Platelet Vol. 9.8 fl (6.2-12.0); Monocyte# 0.62 X10^3/uL; Monocyte% 8.8 % (0-10); NRBC Flagged by Analyzer 0 % (0-5); Neutrophil # 5.21 X10^3/uL (2.7-7.7); Neutrophil % 73.8 % (47-70); Platelet Count 185 K/mm3 (150-450); RBC Distribution Width CV 14.1 % (11.6-14.6); RBC Distribution Width SD 45.9 fl (35.1-43.9); Red Blood Count 4.39 M/mm3 (4.6-6.2); White Blood Count 7.1 K/mm3 (4.4-11.0)
[2020-01-18 07:37] LABS: ALB/GLOB Ratio 1.3 RATIO (0.9-2.4); AST(SGOT) 19 U/L (15-37); Alanine Aminotransfer ALT/SGPT 24 U/L (16-61); Albumin, Serum 3.4 g/dL (3.2-5.0); Alkaline Phosphatase 48 U/L (45-117); Anion Gap 5 (5-15); BUN 20 mg/dL (7-18); BUN/Creat Ratio 20.8 RATIO (10-20); Calcium,Total 8.5 mg/dL (8.5-10.1); Chloride 110 mmol/L (98-107); Creatinine, Serum 0.96 mg/dL (0.70-1.30); EST Glomerular Filtration Rate 80 mL/min (>60); Est Glom Filt Rate - Afr Amer 96 mL/min (>60); Estimated Creatinine Clearance 61.26 ml/min; Globulin 2.7 g/dL (2.2-4.2); Glucose 112 mg/dL (74-106); Potassium 4.3 mmol/L (3.5-5.1); Protein, Total 6.1 g/dL (6.4-8.2); Sodium Level 142 mmol/L (136-145)
--- NOTE | 2020-01-18 07:52 | ED.DCSUM_ITS ---
- ER Visit Summary Date of Service: 01/18/20 Chief Complaint: Rectal bleeding History of Present Illness: The patient is a 84 M who presents with rectal bleeding. He states that it started early this morning. He had diarrhea with some bright red blood. He has no abdominal pain or rectal pain with this. He has never had anything like this before. He is currently on aspirin and Plavix for coronary disease. He states he has had a colonoscopy many years ago and had diverticulosis diagnosed at one point. Physical Examination: Vital signs reviewed. HEENT exam unremarkable. Heart is regular rate and rhythm without murmurs. Lungs are clear to auscultation. Abdomen is soft and nontender. Rectal exam shows no hemorrhoids. He has no tenderness. Extremities reveal no edema. Skin exam normal. Neurologic exam normal. Test Results: Hemoglobin normal. Chloride 110. Glucose 112. INR 1.1 Emergency Department Course and Treatment: Patient was discussed with the hospitalist for admission. The patient is on aspirin and Plavix. He just had a stent placed a few months ago. He discussed with cardiology as well as surgery. Patient will be admitted to observation Treatment Plan: [] Disposition: Admit to observation Impression: GI bleed This note was generated with [employer] dictation software. It may contain incorrect words, spelling, and punctuation that were not noted in review of the chart prior to signing ED Disposition - Plan for ED Patient: Referrals: Brian Mackenzie III, MD [Primary Care Provider] -
[2020-01-18 08:06] LABS: International Normalized Ratio 1.1; Prothrombin Time (Protime)PT. 13.8 SECONDS (11.7-14.9)
[2020-01-18 08:07] LABS: Partial Thromboplast Time 32.1 Seconds (24.1-36.2)
--- NOTE | 2020-01-18 10:34 | CON.PCM_ITS ---
Problem List (1) GI bleed Status: Acute Qualifiers: GI bleed type/associated pathology: anorectal hemorrhage Qualified Code(s): K62.5 - Hemorrhage of anus and rectum Reason for Consult Date of Consultation: 01/18/20 Reason for Consultation: GI bleed History of Present Illness: The patient is a 84 year old M presents with blood in his stool since 2 AM this morning. The patient reports he has been having diarrhea since 2 AM and it started out as black and now it is bright red. His last colonoscopy was over 10 years ago he is never had an EGD. He is on aspirin and Plavix. He had a heart stent in August of this year and is unable to come off of his Plavix for more than 24 hours. Past Medical History Past Medical History (Chronic Problems): Chronic Problems (Last Reviewed 01/16/20 @ 13:50 by CHRISTINE Dela Cruz) Atherosclerosis of coronary artery of [place] without angina pectoris (Chronic) Essential (primary) hypertension (Chronic) Hyperlipidemia (Chronic) Peripheral vascular occlusive disease (Chronic) left lower extremity endovascular intervention with stenting Medical History: Medical History (Last Reviewed 01/16/20 @ 13:50 by CHRISTINE Dela Cruz) Atherosclerosis of coronary artery of [place] without angina pectoris (Chronic) I25.10 Essential (primary) hypertension (Chronic) I10 Hyperlipidemia (Chronic) E78.5 Peripheral vascular occlusive disease (Chronic) I73.9 left lower extremity endovascular intervention with stenting Anxiety F41.9 BPH (benign prostatic hyperplasia) N40.0 Diverticulosis K57.90 GERD (gastroesophageal reflux disease) K21.9 GERD (gastroesophageal reflux disease) K21.9 Incontinence R32 Allergies Sulfa (Sulfonamide Antibiotics) Allergy (Verified 01/18/20 07:02) Rash lisinopril Adverse Reaction (Verified 01/18/20 07:02) Other cough Home Medications: Ambulatory Orders Medication Instructions Recorded Aspirin [Aspirin, Baby] 81 mg PO DAILY@0800 03/17/14 Citalopram [Celexa] 20 mg PO DAILY 03/17/14 Omeprazole [Prilosec] 20 mg PO DAILY 03/17/14 Multivitamin [Daily Multiple 1 ea PO DAILY 05/16/17 Vitamin] ropinirole 0.5 mg tablet 4 mg PO TID 08/20/17 amlodipine 10 mg tablet 10 mg PO DAILY tab 09/04/19 clopidogrel 75 mg tablet 75 mg PO DAILY #90 tab 09/04/19 latanoprost 0.005 % eye drops 1 drp OPHTHALMIC DAILY 09/04/19 nitroglycerin 0.4 mg sublingual 0.4 mg SUBLINGUAL Q5-15M tab 09/04/19 tablet tamsulosin 0.4 mg capsule 0.4 mg PO DAILY cap 09/04/19 niacin 500 mg capsule,extended 500 mg PO BID 09/16/19 release atorvastatin 10 mg tablet 10 mg PO DAILY #90 tab 10/29/19 hydrochlorothiazide 25 mg tablet 25 mg PO DAILY tab 01/16/20 metoprolol succinate 25 mg 25 mg PO DAILY tab 01/16/20 tablet,extended release 24 hr Ascorbic Acid [Vitamin C] 1,000 mg PO DAILY 01/18/20 Surgical History: Surgical History (Last Reviewed 01/16/20 @ 13:50 by CHRISTINE Dela Cruz) History of coronary artery stent placement (Resolved) Onset Date: 09/08/19 Z95.5 PCI-JAM mid LAD using a 2.5 x 32 mm Promus Synergy 09/08/2019 History of angioplasty of peripheral vessel Z98.62 left lower extremity endovascular intervention with stenting, History of esophagogastroduodenoscopy (EGD) Z98.890 History of herniorrhaphy Z98.890, Z87.19 Smoking Status: Former smoker - *Family History Maternal Family History: Family History (Last Reviewed 01/16/20 @ 13:50 by CHRISTINE Dela Cruz) Father CVA (cerebral vascular accident) Mother CVA (cerebral vascular accident) Hypertension Review of Systems Constitutional: Denies: Anorexia, Fever Eyes: Denies: Blurred vision HEENT: Denies: Difficulty Swallowing Cardiovascular: Denies: Chest Pain Respiratory: Denies: Cough, Shortness of Breath Gastrointestinal: Reports: Hematochezia, Melena. Denies: Abdominal Pain, Nausea, Vomiting Genitourinary: Denies: Dysuria Neurological: Denies: Balance problems Psychiatric: Denies: Anxiety Hematologic/ Lymphatic: Denies: Anemia Patient Problems: Active and Suspected Problems (Last Reviewed 01/16/20 @ 13:50 by CHRISTINE Dela Cruz) GI bleed (Acute) - Physical Exam Vitals/I&O's: Vital Signs Temp Pulse Resp BP Pulse Ox 97.6 F L 60 18 157/71 H 97 01/18/20 10:05 01/18/20 10:05 01/18/20 10:05 01/18/20 10:05 01/18/20 10:05 Oxygen Delivery Method Room Air Weight: 165 lb 2.02 oz Body Mass Index (BMI) 23.6 General: Alert, Oriented x3 Neck: No JVD Lungs: Normal air movement Cardiovascular: Regular rate, Regular Rhythm Abdomen: Soft, Non Tender, Non-Distended Microbiology Past 72 Hours 01/18/20 07:40 Stool Stool Occult Blood (MARILY) - Final Occult Blood Positive Laboratory Results 01/18/20 07:10: WBC 7.1, RBC 4.39 L, Hgb 13.1, Hct 39.2 L, MCV 89.3, MCH 29.8, MCHC 33.4, RDW Std Deviation 45.9 H, RDW Coeff of Jihan 14.1, Plt Count 185, MPV 9.8, Immature Gran % (Auto) 0.600, Neut % (Auto) 73.8 H, Lymph % (Auto) 11.9 L, [place] % (Auto) 8.8, Eos % (Auto) 4.5, Baso % (Auto) 0.4, Absolute Neuts (auto) 5.2, Absolute Lymphs (auto) 0.84, Nucleated RBC % 0 01/18/20 07:10: PT 13.8, INR 1.1, APTT 32.1 01/18/20 07:10: Sodium 142, Potassium 4.3, Chloride 110 H, Carbon Dioxide 27.0, Anion Gap 5, BUN 20 H, Creatinine 0.96, Estim Creat Clear Calc 61.26, Est GFR (MDRD) Af Amer 96, Est GFR (MDRD) Non-Af 80, BUN/Creatinine Ratio 20.8 H, Glucose 112 H, Calcium 8.5, Total Bilirubin 0.90, AST 19, ALT 24, Alkaline Phosphatase 48, Total Protein 6.1 L, Albumin 3.4, Globulin 2.7, Albumin/Globulin Ratio 1.3 Assessment/Plan All Active Problems (Last Reviewed 01/16/20 @ 13:50 by CHRISTINE Dela Cruz) GI bleed (Acute) Exertional angina (Acute) Dyspnea on exertion (Acute) History of coronary artery stent placement (Resolved 09/08/19) Blood in urine (Resolved) UTI (urinary tract infection) (Resolved) 84-year-old male with GI bleed 1. Patient is having dark black stools that turned into bright red stools. He is having diarrhea. I believe the patient has a GI bleed. Unsure if it is upper or lower. The patient's Plavix will be held for 24 hours and I will perform an upper and lower endoscopy in the morning. The case was discussed with his scientific investigator and he did give us permission to stop the Plavix for 24 hours. 2. I explained endoscopy in detail to the patient. I explained the risks including but not limited to stroke or heart attack with anesthesia, perforation of the GI tract, bleeding, infection. I explained that any of these could necessitate further emergency surgery. The patient understands and all questions were answered sufficiently. The patient wishes to proceed with procedure. I did discuss the risk of increasing bleeding with injection or clipping. I did discuss the risk of bleeding being increased due to his aspirin and Plavix. 3. We discussed the current risks associated with COVID-19. While it is understood that there is a community spread of COVID-19, the risk of sylvia COVID-19 while at [facility] ([facility]) is very low; however, the risk cannot be completely mitigated because of the community spread of the disease. We discussed in detail the risk of exposure to and/or potential harm posed by the COVID-19 virus with having a surgery/procedure at this time versus the risk of delaying the surgery/procedure. It is not possible to know either the risk of delaying the surgery or procedure or chance of getting an infection with perfect accuracy, but a joint decision was made to proceed at this time with the scheduled surgery/procedure as indicated on the consent form. Patient was notified that we will need to comply with any screening or testing [facility] wishes to perform or that surgery may be delayed for any positive results. Anatoliy Arnett MD Pager: [facility] [address] [place] [address], [address] [place] [address] Office:
[2020-01-18 11:26] LABS: Hematocrit 38.4 % (40-54); Hemoglobin 12.5 g/dL (13.0-16.5)
--- NOTE | 2020-01-18 12:52 | HP.PCM_ITS ---
Problem List (1) GI bleed Status: Acute Qualifiers: GI bleed type/associated pathology: anorectal hemorrhage Qualified Code(s): K62.5 - Hemorrhage of anus and rectum (2) Exertional angina Status: Acute (3) Dyspnea on exertion Status: Acute (4) Atherosclerosis of coronary artery of [place] heart without angina pectoris Status: Chronic Qualifiers: Coronary Disease-Associated Artery/Lesion type: [place] artery Qualified Code(s): I25.10 - Atherosclerotic heart disease of [place] coronary artery without angina pectoris (5) History of coronary artery stent placement Status: Resolved Comment: PCI-JAM mid LAD using a 2.5 x 32 mm Promus Synergy 09/08/2019 (6) Essential (primary) hypertension Status: Chronic (7) Hyperlipidemia Status: Chronic Qualifiers: Hyperlipidemia type: unspecified Qualified Code(s): E78.5 - Hyperlipidemia, unspecified (8) Peripheral vascular occlusive disease Status: Chronic Comment: left lower extremity endovascular intervention with stenting History of Present Illness Date of Admission: 01/18/20 Chief Complaint: Gi bleed. The patient is a 84 year old M who presents to the emergency room due to bright red blood in stool which began around 2 AM this morning. Patient states he has had 5-6 bloody bowel movements since that time. He states his stool had previously been dark in color. He denies abdominal pain, nausea, vomiting. Denies lightheadedness, chest pain, shortness of breath. Patient denies history of GI bleed. Patient had a cardiac stent placed in August and is on aspirin and Plavix. He is also on omeprazole as he states he has significant GERD. He has a past medical history of CAD with history of PTCA/JAM to mid LAD August 2019, hypertension, hyperlipidemia, peripheral vascular disease with history of lower extremity stenting, BPH, GERD. Past Medical History Past Medical History (Chronic Problems): Chronic Problems (Last Reviewed 01/16/20 @ 13:50 by CHRISTINE Dela Cruz) Atherosclerosis of coronary artery of [place] heart without angina pectoris (Chronic) Essential (primary) hypertension (Chronic) Hyperlipidemia (Chronic) Peripheral vascular occlusive disease (Chronic) left lower extremity endovascular intervention with stenting Medical History: Medical History (Last Reviewed 01/16/20 @ 13:50 by CHRISTINE Dela Cruz) Atherosclerosis of coronary artery of [place] heart without angina pectoris (Chronic) I25.10 Essential (primary) hypertension (Chronic) I10 Hyperlipidemia (Chronic) E78.5 Peripheral vascular occlusive disease (Chronic) I73.9 left lower extremity endovascular intervention with stenting Anxiety F41.9 BPH (benign prostatic hyperplasia) N40.0 Diverticulosis K57.90 GERD (gastroesophageal reflux disease) K21.9 GERD (gastroesophageal reflux disease) K21.9 Incontinence R32 Allergies Sulfa (Sulfonamide Antibiotics) Allergy (Verified 01/18/20 07:02) Rash lisinopril Adverse Reaction (Verified 01/18/20 07:02) Other cough Home Medications: Ambulatory Orders Medication Instructions Recorded Aspirin [Aspirin, Baby] 81 mg PO DAILY@0800 03/17/14 Citalopram [Celexa] 20 mg PO DAILY 03/17/14 Omeprazole [Prilosec] 20 mg PO DAILY 03/17/14 Multivitamin [Daily Multiple 1 ea PO DAILY 05/16/17 Vitamin] ropinirole 0.5 mg tablet 4 mg PO TID 08/20/17 amlodipine 10 mg tablet 10 mg PO DAILY tab 09/04/19 clopidogrel 75 mg tablet 75 mg PO DAILY #90 tab 09/04/19 latanoprost 0.005 % eye drops 1 drp OPHTHALMIC DAILY 09/04/19 nitroglycerin 0.4 mg sublingual 0.4 mg SUBLINGUAL Q5-15M tab 09/04/19 tablet tamsulosin 0.4 mg capsule 0.4 mg PO DAILY cap 09/04/19 niacin 500 mg capsule,extended 500 mg PO BID 09/16/19 release atorvastatin 10 mg tablet 10 mg PO DAILY #90 tab 10/29/19 hydrochlorothiazide 25 mg tablet 25 mg PO DAILY tab 01/16/20 metoprolol succinate 25 mg 25 mg PO DAILY tab 01/16/20 tablet,extended release 24 hr Ascorbic Acid [Vitamin C] 1,000 mg PO DAILY 01/18/20 Surgical History: Surgical History (Last Reviewed 01/18/20 @ 13:24 by MALIKA Liz) History of coronary artery stent placement (Resolved) Onset Date: 09/08/19 Z95.5 PCI-JAM mid LAD using a 2.5 x 32 mm Promus Synergy 09/08/2019 History of angioplasty of peripheral vessel Z98.62 left lower extremity endovascular intervention with stenting, History of esophagogastroduodenoscopy (EGD) Z98.890 History of herniorrhaphy Z98.890, Z87.19 Psychiatric History: No pertinent psych hx Lives: Spouse/ Significant Other Smoking Status: Former smoker Tobacco Use: Pipe Alcohol: None Drugs: None - *Family History Maternal Family History: Family History (Last Reviewed 01/18/20 @ 13:01 by MALIKA Liz) Father CVA (cerebral vascular accident) Mother CVA (cerebral vascular accident) Hypertension Paternal Family History: Family History (Last Reviewed 01/18/20 @ 13:01 by MALIKA Liz) Father CVA (cerebral vascular accident) Mother CVA (cerebral vascular accident) Hypertension Review of Systems Constitutional: Denies: Chills, Fever, Weight Change HEENT: Denies: Head Aches, Sinus Congestion, Sinus Drainage Cardiovascular: Denies: Chest Pain, Palpitations Respiratory: Denies: Cough, Shortness of breath at rest, Sputum production Gastrointestinal: Reports: Diarrhea, Melena. Denies: Abdominal Pain, Hematemesis, Nausea, Vomiting Genitourinary: Denies: Dysuria Musculoskeletal: Denies: Joint Pain, Joint Tenderness Skin: Denies: Rash, Wounds Neurological: Denies: Numbness, Tingling, Focal weakness Psychiatric: Denies: Anxiety, Depression, Homicidal Ideations, Suicidal Ideations Hematologic/ Lymphatic: Denies: Easy Bruising, Easy Bleeding VTE Information - Inpt Only VTE Present on Admission: No VTE Mechan Device Prophylaxis: SCD's VTE Pharm Prophylaxis ordered?: No Reason prophylaxis not ordered:: Medical Contraindication Patient Problems: Active and Suspected Problems (Last Reviewed 01/16/20 @ 13:50 by CHRISTINE Dela Cruz) GI bleed (Acute) - Physical Exam Vitals/I&O's: Vital Signs Temp Pulse Resp BP Pulse Ox 97.8 F 57 L 18 136/52 H 96 01/18/20 10:34 01/18/20 10:34 01/18/20 10:34 01/18/20 10:34 01/18/20 10:34 Oxygen Delivery Method Room Air Weight: 160 lb 14.4 oz Body Mass Index (BMI) 23.1 General: Alert, Oriented x3, Cooperative HEENT: Atraumatic, PERRLA, EOMI, Normocephalic Neck: Supple, No JVD, Negative Carotid Bruits Lungs: Clear to auscultation, Normal air movement Cardiovascular: Regular rate, No murmurs Abdomen: Bowel Sounds Present, Soft, Non Tender, Non-Distended Extremities: No clubbing, No cyanosis, No edema, Capillary Refill Less than 3 Seconds Skin: No rashes, No breakdown Musculoskeletal: No Tenderness to Palpation of Joints or Extremities Neurological: Cranial nerves II-XII grossly intact, Neuro grossly intact Psych/Mental Status: Normal Affect, Appropriate Microbiology Past 72 Hours 01/18/20 07:40 Stool Stool Occult Blood (MARILY) - Final Occult Blood Positive Laboratory Results 01/18/20 07:10: WBC 7.1, RBC 4.39 L, Hgb 13.1, Hct 39.2 L, MCV 89.3, MCH 29.8, MCHC 33.4, RDW Std Deviation 45.9 H, RDW Coeff of Jihan 14.1, Plt Count 185, MPV 9.8, Immature Gran % (Auto) 0.600, Neut % (Auto) 73.8 H, Lymph % (Auto) 11.9 L, [place] % (Auto) 8.8, Eos % (Auto) 4.5, Baso % (Auto) 0.4, Absolute Neuts (auto) 5.2, Absolute Lymphs (auto) 0.84, Nucleated RBC % 0 01/18/20 07:10: PT 13.8, INR 1.1, APTT 32.1 01/18/20 07:10: Sodium 142, Potassium 4.3, Chloride 110 H, Carbon Dioxide 27.0, Anion Gap 5, BUN 20 H, Creatinine 0.96, Estim Creat Clear Calc 61.26, Est GFR (MDRD) Af Amer 96, Est GFR (MDRD) Non-Af 80, BUN/Creatinine Ratio 20.8 H, Glucose 112 H, Calcium 8.5, Total Bilirubin 0.90, AST 19, ALT 24, Alkaline Phosphatase 48, Total Protein 6.1 L, Albumin 3.4, Globulin 2.7, Albumin/Globulin Ratio 1.3 01/18/20 11:10: COVID-19 ([place]) Pending 01/18/20 11:19: Hgb 12.5 L, Hct 38.4 L Current Medications Acetaminophen (Tylenol) 650 mg PO Q6H PRN PRN PRN Reason: Pain Score 1-10/Temp > 100.7 F Amlodipine Besylate (Norvasc) 10 mg PO DAILY [facility] Atorvastatin Calcium (Lipitor) 10 mg PO QHS [facility] Citalopram Hydrobromide (Celexa) 20 mg PO DAILY [facility] Hydrochlorothiazide (Hctz) 25 mg PO DAILY [facility] Latanoprost (Xalatan Opthalmic) 1 drop OPHTHALMIC DAILY [facility] Metoprolol Succinate (Toprol Xl (Beta Jessy)) 25 mg PO DAILY [facility] Pantoprazole Sodium (Protonix) 40 mg PO BID [facility] Pramipexole Dihydrochloride (Mirapex) 1 mg PO TID [facility] Sodium Chloride () 10 - 40 ml IV UD PRN PRN Reason: SALINE FLUSH Sodium Chloride/Electrolytes (Nulytely) 2,000 ml PO X1 ONE Stop: 01/18/20 14:01 Tamsulosin HCl (Flomax) 0.4 mg PO DAILY@0830 [facility] Assessment/Plan All Active Problems (Last Reviewed 01/16/20 @ 13:50 by CHRISTINE Dela Cruz) GI bleed (Acute) Exertional angina (Acute) Dyspnea on exertion (Acute) History of coronary artery stent placement (Resolved 09/08/19) Blood in urine (Resolved) UTI (urinary tract infection) (Resolved) 1. GI bleed-stool for occult blood positive. Trend H&H. General surgery on consult with plans for upper and lower endoscopy tomorrow. Will hold Plavix and aspirin for 24 hours, discussed with cardiology. IV PPI. Clear liquid diet with n.p.o. after midnight. 2. CAD with history of PTCA/JAM to mid LAD 09/08/2019- Follows with Dr. Brooks. On aspirin, statin, Plavix, beta-jessy. Aspirin Plavix on hold secondary to #1. 3. Hypertension- stable, continue metoprolol, HCTZ, amlodipine. 4. Hyperlipidemia- continue statin. 5. Peripheral vascular disease with history of lower extremity stenting 6. BPH-continue Flomax regimen. 7. GERD-IV PPI. DVT prophylaxis- SCDs This patient was seen by MALIKA Liz under the supervision of Dr. Vidal.
[2020-01-18] MEDS: Atorvastatin Calcium 10 MG Tablet PO (12:58)
[2020-01-18] MEDS: Citalopram 20 MG Tablet PO (12:58)
[2020-01-18] MEDS: Pantoprazole Sodium 40 MG Tablet PO ×2 (12:58→21:27)
[2020-01-18] MEDS: Pramipexole Di-HCl 1 MG Tablet PO ×2 (12:59→21:27)
[2020-01-18] MEDS: Latanoprost 0.005% 1 Bottle 1 DRP OPHTHALMIC (12:59)
[2020-01-18] MEDS: Tamsulosin HCl 0.4 MG Capsule PO (13:01)
[2020-01-18 13:14] LABS: Probe Check PASS; Specimen Processing Control PASS
[2020-01-18 15:07] LABS: Hematocrit 39.2 % (40-54); Hemoglobin 12.9 g/dL (13.0-16.5)
[2020-01-18] MEDS: Electrolyte Solution/Peg's 4000 ML 2000 ML PO (15:08)
--- NOTE | 2020-01-18 16:04 | EKG12_ITS ---
Test Reason : BRADYCARDIA Blood Pressure : / mmHG Vent. Rate : 053 BPM Atrial Rate : 053 BPM P-R Int : 146 ms QRS Dur : 088 ms QT Int : 452 ms P-R-T Axes : 060 014 002 degrees QTc Int : 424 ms Sinus bradycardia Otherwise normal ECG When compared with ECG of 09-SEP-2019 05:34, No significant change was found Confirmed by ROSA MANUEL, SKYLER ([id number]), graphics editor GRAHAM NEWSOME ([id number]) on 01/20/2020 11:01:55 AM Referred By: SUNITA Confirmed By:SKYLER LEE MD
--- NOTE | 2020-01-18 16:42 | NURSING ---
Pt called out, didn't feel good. 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 Liz RN, charge went in to see pt. Pt was bradycardiac. VS obtained, see intervention. Dr. Vidal notified. EKG obtained and sent photo via [facility] to Dr. Vidal for review. Dr. Vidal says there is no Ischemia on EKG. PT was told not to get up on his own and to call for assistance and staff will assist him to [facility]. Pt is getting prep for EGD and SCope tomorrow 01/18.
[2020-01-18] MEDS: 0.9% Normal Saline 1,000 ML 100 ML IV (17:46)
--- NOTE | 2020-01-18 18:16 | NURSING ---
Lab recently in and got blood for H&H.
[2020-01-18 18:17] LABS: Hematocrit 37.7 % (40-54); Hemoglobin 12.1 g/dL (13.0-16.5)
[2020-01-19] VITALS (15 sets, daily range): BP systolic 100–123; BP diastolic 38–57; PULSE 60–101; RESP 16–18; TEMP 36.6–37.4; O2SAT 92–97; BMI 23.0
[2020-01-19 00:06] LABS: Hemoglobin 10.4 g/dL (13.0-16.5)
[2020-01-19] MEDS: 0.9% Normal Saline 1,000 ML 100 ML IV (04:01)
[2020-01-19 06:03] LABS: Hematocrit 32.4 % (40-54); Hemoglobin 10.6 g/dL (13.0-16.5)
--- NOTE | 2020-01-19 07:29 | PN.SURG_ITS ---
Patient Problems: Active and Suspected Problems (Last Reviewed 01/16/20 @ 13:50 by CHRISTINE Dela Cruz) GI bleed (Acute) Subjective: Patient had bowel prep over the evening. He had a bowel movement this morning and still had bright red blood in it. No abdominal pain. - Physical Exam Vitals/I&O's: Vital Signs Temp Pulse Resp BP Pulse Ox 99.3 F H 75 16 116/57 L 95 01/19/20 02:00 01/19/20 04:03 01/19/20 02:00 01/19/20 02:00 01/19/20 02:00 Oxygen Delivery Method Room Air Weight: 160 lb 14.4 oz Body Mass Index (BMI) 23.1 Intake and Output for Last 24 Hours 01/17/20 01/18/20 01/19/20 23:59 23:59 23:59 Intake Total 360 / 2360 3000 / 3000 Balance 360 / 2360 3000 / 3000 General: Alert, Oriented x3 Lungs: Normal air movement Cardiovascular: Regular rate, Regular Rhythm Abdomen: Soft, Non Tender, Non-Distended Microbiology Past 72 Hours 01/18/20 07:40 Stool Stool Occult Blood (MARILY) - Final Occult Blood Positive Laboratory Results 01/18/20 07:10: PT 13.8, INR 1.1, APTT 32.1 01/18/20 07:10: Sodium 142, Potassium 4.3, Chloride 110 H, Carbon Dioxide 27.0, Anion Gap 5, BUN 20 H, Creatinine 0.96, Estim Creat Clear Calc 61.26, Est GFR (MDRD) Af Amer 96, Est GFR (MDRD) Non-Af 80, BUN/Creatinine Ratio 20.8 H, Glucose 112 H, Calcium 8.5, Total Bilirubin 0.90, AST 19, ALT 24, Alkaline Phosphatase 48, Total Protein 6.1 L, Albumin 3.4, Globulin 2.7, Albumin/Globulin Ratio 1.3 01/18/20 11:10: COVID-19 ([place]) Negative 01/18/20 11:19: Hgb 12.5 L, Hct 38.4 L 01/18/20 15:00: Hgb 12.9 L, Hct 39.2 L 01/18/20 18:07: Hgb 12.1 L, Hct 37.7 L 01/18/20 23:56: Hgb 10.4 L, Hct 32.0 L 01/19/20 05:42: Hgb 10.6 L, Hct 32.4 L Current Medications Acetaminophen (Tylenol) 650 mg PO Q6H PRN PRN PRN Reason: Pain Score 1-10/Temp > 100.7 F Amlodipine Besylate (Norvasc) 10 mg PO DAILY [facility] Last Admin: 01/18/20 13:01 Dose: Not Given Documented by: Atorvastatin Calcium (Lipitor) 10 mg PO QHS [facility] Last Admin: 01/18/20 12:58 Dose: 10 mg Documented by: Citalopram Hydrobromide (Celexa) 20 mg PO DAILY [facility] Last Admin: 01/18/20 12:58 Dose: 20 mg Documented by: Sodium Chloride () 1,000 mls @ 100 mls/hr IV .Q10H [facility] Last Admin: 01/19/20 04:01 Dose: 100 mls/hr Documented by: Latanoprost (Xalatan Opthalmic) 1 drop OPHTHALMIC DAILY [facility] Last Admin: 01/18/20 12:59 Dose: 1 drop Documented by: Metoprolol Succinate (Toprol Xl (Beta Jessy)) 25 mg PO DAILY [facility] Last Admin: 01/18/20 13:00 Dose: Not Given Documented by: Pantoprazole Sodium (Protonix) 40 mg PO BID [facility] Last Admin: 01/18/20 21:27 Dose: 40 mg Documented by: Pramipexole Dihydrochloride (Mirapex) 1 mg PO TID [facility] Last Admin: 01/19/20 05:57 Dose: Not Given Documented by: Sodium Chloride () 10 - 40 ml IV UD PRN PRN Reason: SALINE FLUSH Tamsulosin HCl (Flomax) 0.4 mg PO DAILY@0830 [facility] Last Admin: 01/18/20 13:01 Dose: 0.4 mg Documented by: Medical Necessity - Tobacco Use Smoking Status: Former smoker Tobacco Use: Pipe Assessment/Plan All Active Problems (Last Reviewed 01/16/20 @ 13:50 by CHRISTINE Dela Cruz) GI bleed (Acute) Exertional angina (Acute) Dyspnea on exertion (Acute) History of coronary artery stent placement (Resolved 09/08/19) Blood in urine (Resolved) UTI (urinary tract infection) (Resolved) 84-year-old male with GI bleed 1. Patient has had Plavix held since yesterday. He had a bowel prep. We will plan on upper and lower endoscopy today. Patient needs to resume Plavix by clifton willoughby according to his arabic linguist. Anatoliy Arnett MD Pager: [facility] [address] [place] [address], [address] [place] [address] Office:
[2020-01-19] MEDS: Metoprolol(XL)Succ 25 MG Tablet PO (08:10)
[2020-01-19] MEDS: amLODIPine 10 MG Tablet PO (08:10)
--- NOTE | 2020-01-19 10:11 | OP.EGD_ITS ---
Patient Name: Ryan Soriano Procedure Date: 01/19/2020 9:20 AM Date of : 1935 Age: 84 Procedure: Upper GI endoscopy Indications: Hematochezia Providers: Anatoliy Arnett MD Medicines: Monitored Anesthesia Care Patient Profile: This is an 84 year old male. Refer to note in patient chart for documentation of history and physical. Complications: No immediate complications. Procedure: Pre-Anesthesia Assessment: - Prior to the procedure, a History and Physical was performed, and patient medications and allergies were reviewed. The patient's tolerance of previous anesthesia was also reviewed. The risks and benefits of the procedure and the sedation options and risks were discussed with the patient. All questions were answered, and informed consent was obtained. Prior Anticoagulants: The patient has taken Plavix (clopidogrel), last dose was 1 day prior to procedure. After reviewing the risks and benefits, the patient was deemed in satisfactory condition to undergo the procedure. After obtaining informed consent, the endoscope was passed under direct vision. Throughout the procedure, the patient's blood pressure, pulse, and oxygen saturations were monitored continuously. The gastroscope was introduced through the mouth, and advanced to the fourth part of duodenum. The upper GI endoscopy was accomplished without difficulty. The patient tolerated the procedure fairly well. Scope In: 9:35:48 AM Scope Out: 9:37:48 AM Total Procedure Duration Time 0 hours 2 minutes 0 seconds Findings: The esophagus was normal. The stomach was normal. The examined duodenum was normal. Impression: - Normal esophagus. - Normal stomach. - Normal examined duodenum. - No specimens collected. Recommendation: - [facility]. - Resume regular diet. - Continue present medications. Procedure Code(s): --- Professional --- 93104, Esophagogastroduodenoscopy, flexible, transoral; diagnostic, including collection of specimen(s) by brushing or washing, when performed (separate procedure) Diagnosis Code(s): --- Professional --- K92.1, Melena (includes Hematochezia) CPT copyright 2017 [employer]. All rights reserved. The codes documented in this report are preliminary and upon family and divorce legal assistant review may be revised to meet current compliance requirements. Anatoliy Arnett MD 01/19/2020 10:11:43 AM This report has been signed electronically. Number of Addenda: 0 Note Initiated On: 01/19/2020 9:20 AM
--- NOTE | 2020-01-19 10:12 | OP.CCLET_ITS ---
01/19/2020 [address] [place] [address] Re : Upper GI endoscopy procedure for Ryan Soriano Dear Dr. Mackenzie This procedure was performed on Sunday, January 19, 2020. My impressions and recommendations are as follows: Impressions : - Normal esophagus. - Normal stomach. - Normal examined duodenum. - No specimens collected. Recommendations : - [facility]. - Resume regular diet. - Continue present medications. My findings are described in the full procedure note, which is enclosed. If I can be of further assistance, please feel free to contact me at Doctor phone number(s): , Work: . Sincerely, Anatoliy Arnett MD 01/19/2020 10:11:43 AM This report has been signed electronically.
--- NOTE | 2020-01-19 10:16 | OP.COLON_ITS ---
Patient Name: Ryan Soriano Procedure Date: 01/19/2020 9:39 AM Date of : 1935 Age: 84 Procedure: Colonoscopy Indications: Hematochezia Providers: Anatoliy Arnett MD Medicines: Monitored Anesthesia Care Patient Profile: This is an 84 year old male. Refer to note in patient chart for documentation of history and physical. Last Colonoscopy: more than 3 years ago. Complications: No immediate complications. Estimated blood loss: Minimal. Procedure: Pre-Anesthesia Assessment: - Prior to the procedure, a History and Physical was performed, and patient medications and allergies were reviewed. The patient's tolerance of previous anesthesia was also reviewed. The risks and benefits of the procedure and the sedation options and risks were discussed with the patient. All questions were answered, and informed consent was obtained. Prior Anticoagulants: The patient has taken Plavix (clopidogrel), last dose was 1 day prior to procedure. After reviewing the risks and benefits, the patient was deemed in satisfactory condition to undergo the procedure. After I obtained informed consent, the scope was passed under direct vision. Throughout the procedure, the patient's blood pressure, pulse, and oxygen saturations were monitored continuously. The pediatric colonoscope was introduced through the anus and advanced to 7 cm into the ileum. The colonoscopy was performed without difficulty. The patient tolerated the procedure well. The quality of the bowel preparation was good. Scope In: 9:41:52 AM Scope Withdrawal Time 0 hours 12 minutes 56 seconds Scope Out: 10:01:48 AM Total Procedure Duration Time 0 hours 19 minutes 56 seconds Findings: Hematin (altered blood/zhaztq-dljudm-wcki material) was found in the entire colon. No active bright red bleeding. No blood in terminal ileum. Multiple small and large-mouthed diverticula were found in the entire colon. Impression: - Blood in the entire examined colon. - Diverticulosis in the entire examined colon. - No specimens collected. Recommendation: - [facility]. - Resume previous diet. - Continue present medications. - Repeat colonoscopy is not recommended due to current age (66 years or older) for screening purposes. Procedure Code(s): --- Professional --- 23820, Colonoscopy, flexible; diagnostic, including collection of specimen(s) by brushing or washing, when performed (separate procedure) Diagnosis Code(s): --- Professional --- K92.2, Gastrointestinal hemorrhage, unspecified K92.1, Melena (includes Hematochezia) K57.30, Diverticulosis of large intestine without perforation or abscess without bleeding CPT copyright 2017 [employer]. All rights reserved. The codes documented in this report are preliminary and upon dairy equipment specialist review may be revised to meet current compliance requirements. Anatoliy Arnett MD 01/19/2020 10:15:46 AM This report has been signed electronically. Number of Addenda: 0 Note Initiated On: 01/19/2020 9:39 AM
--- NOTE | 2020-01-19 10:16 | OP.CCLET_ITS ---
01/19/2020 [address] [place] [address] Re : Colonoscopy procedure for Ryan Soriano Dear Dr. Mackenzie This procedure was performed on Sunday, January 19, 2020. My impressions and recommendations are as follows: Impressions : - Blood in the entire examined colon. - Diverticulosis in the entire examined colon. - No specimens collected. Recommendations : - [facility]. - Resume previous diet. - Continue present medications. - Repeat colonoscopy is not recommended due to current age (66 years or older) for screening purposes. My findings are described in the full procedure note, which is enclosed. If I can be of further assistance, please feel free to contact me at Doctor phone number(s): , Work: . Sincerely, Anatoliy Arnett MD 01/19/2020 10:15:46 AM This report has been signed electronically.
--- NOTE | 2020-01-19 10:17 | PN_ITS ---
Progress Note The patient had EGD and colonoscopy. EGD was completely normal with no ulcers or irritation or blood in the stomach or duodenum. The patient had significant diverticulosis of the entire colon with small amounts of blood clot throughout the entire colon. I was able to intubate the terminal ileum and there was no blood in the terminal ileum. There is no active bright red bleeding during the time of colonoscopy and the patient's hemorrhoids were nonbleeding. Patient had blood throughout the entire colon indicating that the bleeding is likely on the right side of the colon and it is likely diverticular as he has diverticulosis on that side as well. Anatoliy Arnett MD Pager: [facility] [address] [place] [address], [address] [place] [address] Office: [facility] Vital Signs/Narrative: Vital Signs Temp Pulse Resp BP Pulse Ox 01/19/20 10:16 16 116/51 L 92 01/19/20 10:11 98.5 F 80 16 100/43 L 01/19/20 08:16 98.0 F 63 18 123/50 H 96 01/19/20 08:11 98.0 F 63 18 123/50 H 96 01/19/20 08:10 64
--- NOTE | 2020-01-19 10:53 | DCINST_ITS ---
- Discharge Diagnoses Current Active Problems: Current Active and Chronic Problems (Last Reviewed 01/16/20 @ 13:50 by CHRISTINE Dela Cruz) GI bleed (Acute) You will use the following diet at home:: No restrictions Discharge Activity: Return to Normal Activity Call your doctor if you observe: Shortness of breath, Dizziness, Fainting spells, Chest pain Allergies/Adverse Reactions: Allergies Sulfa (Sulfonamide Antibiotics) Allergy (Verified 01/18/20 07:02) Rash lisinopril Adverse Reaction (Verified 01/18/20 07:02) Other cough Medications to take at Discharge Citalopram [Celexa] 20 mg PO DAILY 03/17/14 Omeprazole [Prilosec] 20 mg PO DAILY 03/17/14 Multivitamin [Daily Multiple Vitamin] 1 ea PO DAILY 05/16/17 ropinirole 0.5 mg tablet 4 mg PO TID 08/20/17 amlodipine 10 mg tablet 10 mg PO DAILY tab 09/04/19 clopidogrel 75 mg tablet 75 mg PO DAILY #90 tab 09/04/19 latanoprost 0.005 % eye drops 1 drp OPHTHALMIC DAILY 09/04/19 nitroglycerin 0.4 mg sublingual tablet 0.4 mg SUBLINGUAL Q5-15M tab 09/04/19 tamsulosin 0.4 mg capsule 0.4 mg PO DAILY cap 09/04/19 niacin 500 mg capsule,extended release 500 mg PO BID 09/16/19 atorvastatin 10 mg tablet 10 mg PO DAILY #90 tab 10/29/19 hydrochlorothiazide 25 mg tablet 25 mg PO DAILY tab 01/16/20 metoprolol succinate 25 mg tablet,extended release 24 hr 25 mg PO DAILY tab 01/16/20 Ascorbic Acid [Vitamin C] 1,000 mg PO DAILY 01/18/20 Primary Care Physician: Brian Mackenzie III, MD [Primary Care Provider] - Please follow up with your Primary Care Physician in: 1 Week Test Results: Test results from this visit will be discussed in further detail at your follow- up appointment, if applicable. Please Follow Up With: Anatoliy Arnett MD When: As needed, call if further bleeding Please Follow Up With: Dejuan Brooks MD When: As scheduled Proposed Discharge Date: 01/19/20
--- NOTE | 2020-01-19 10:56 | PCM.DC.SUM ---
Discharge Date and Diagnosis Date of Admission: 01/18/20 Date of Discharge: 01/19/20 - Primary Discharge Diagnosis Acute Problems: Active Problems (Last Reviewed 01/16/20 @ 13:50 by CHRISTINE Dela Cruz) 1. Acute lower GI bleed, diverticular bleed 2. CAD with history of PTCA/JAM to mid LAD 09/08/2019 3. Hypertension 4. Hyperlipidemia 5. Peripheral vascular disease with history of lower extremity stenting 6. BPH 7. GERD - Secondary Discharge Diagnosis Chronic Problems: Chronic Problems (Last Reviewed 01/16/20 @ 13:50 by CHRISTINE Dela Cruz) Atherosclerosis of coronary artery of [place] heart without angina pectoris (Chronic) Essential (primary) hypertension (Chronic) Hyperlipidemia (Chronic) Peripheral vascular occlusive disease (Chronic) left lower extremity endovascular intervention with stenting Hospital Course and Treatment Dr. Arnett- General surgery Operations: None Procedures: Colonoscopy, EGD Summary of Care Provided: The patient is a 84 year old M admitted 01/18/2020 due to GI bleed. 1. Acute lower GI bleed, diverticular bleed-stool for occult blood positive. Hemoglobin slightly reduced from baseline however has remained stable. General surgery consulted. Aspirin and Plavix held for 24 hours. EGD unremarkable. Colonoscopy demonstrated blood in the colon, significant diverticulosis with small amounts of blood clot. Most likely bleeding from right side of colon, likely diverticular. Discussed with cardiology, discontinue aspirin and resume Plavix only at discharge. Continue home PPI regimen. Follow-up with primary care physician within 1 week. Follow-up with general surgery as needed. 2. CAD with history of PTCA/JAM to mid LAD 09/08/2019- Follows with Dr. Brooks. On statin, Plavix, beta-jessy. Aspirin discontinued at discharge. 3. Hypertension- stable, continue metoprolol, HCTZ, amlodipine. 4. Hyperlipidemia- continue statin. 5. Peripheral vascular disease with history of lower extremity stenting 6. BPH-continue Flomax regimen. 7. GERD-continue PPI. General: Alert, Oriented x3, Cooperative HEENT: Atraumatic, PERRLA, EOMI, Normocephalic Neck: Supple, No JVD, Negative Carotid Bruits Lungs: Clear to auscultation, Normal air movement Cardiovascular: Regular rate, No murmurs Abdomen: Bowel Sounds Present, Soft, Non Tender, Non-Distended Extremities: No clubbing, No cyanosis, No edema, Capillary Refill Less than 3 Seconds Skin: No rashes, No breakdown Musculoskeletal: No Tenderness to Palpation of Joints or Extremities Neurological: Cranial nerves II-XII grossly intact, Neuro grossly intact Psych/Mental Status: Normal Affect, Appropriate Patient seen and examined prior to discharge. Physical assessment as noted above. Patient is stable for discharge with follow up recommendations as noted above. This patient was seen by MALIKA Liz under the supervision of Dr. Vidal. - Physical Exam Vitals/I&O's: Vital Signs Temp Pulse Resp BP Pulse Ox 97.8 F 73 16 104/45 L 93 01/19/20 10:34 01/19/20 10:34 01/19/20 10:34 01/19/20 10:34 01/19/20 10:34 Oxygen Flow Rate (L/min) 4 Oxygen Delivery Method Room Air Weight: 160 lb 14.399 oz Body Mass Index (BMI) 23.0 Intake and Output for Last 24 Hours 01/17/20 01/18/20 01/19/20 23:59 23:59 23:59 Intake Total 360 / 2360 3000 / 3000 Balance 360 / 2360 3000 / 3000 Microbiology Past 72 Hours 01/18/20 07:40 Stool Stool Occult Blood (MARILY) - Final Occult Blood Positive Laboratory Results 01/18/20 11:10: COVID-19 ([facility]) Negative 01/18/20 11:19: Hgb 12.5 L, Hct 38.4 L 01/18/20 15:00: Hgb 12.9 L, Hct 39.2 L 01/18/20 18:07: Hgb 12.1 L, Hct 37.7 L 01/18/20 23:56: Hgb 10.4 L, Hct 32.0 L 01/19/20 05:42: Hgb 10.6 L, Hct 32.4 L Current Medications Acetaminophen (Tylenol) 650 mg PO Q6H PRN PRN PRN Reason: Pain Score 1-10/Temp > 100.7 F Amlodipine Besylate (Norvasc) 10 mg PO DAILY [facility] Last Admin: 01/19/20 08:10 Dose: 10 mg Documented by: Atorvastatin Calcium (Lipitor) 10 mg PO QHS [facility] Last Admin: 01/18/20 12:58 Dose: 10 mg Documented by: Citalopram Hydrobromide (Celexa) 20 mg PO DAILY [facility] Last Admin: 01/18/20 12:58 Dose: 20 mg Documented by: Sodium Chloride () 1,000 mls @ 100 mls/hr IV .Q10H [facility] Last Admin: 01/19/20 04:01 Dose: 100 mls/hr Documented by: Latanoprost (Xalatan Opthalmic) 1 drop OPHTHALMIC DAILY [facility] Last Admin: 01/18/20 12:59 Dose: 1 drop Documented by: Metoprolol Succinate (Toprol Xl (Beta Jessy)) 25 mg PO DAILY [facility] Last Admin: 01/19/20 08:10 Dose: 25 mg Documented by: Pantoprazole Sodium (Protonix) 40 mg PO BID [facility] Last Admin: 01/18/20 21:27 Dose: 40 mg Documented by: Pramipexole Dihydrochloride (Mirapex) 1 mg PO TID [facility] Last Admin: 01/19/20 05:57 Dose: Not Given Documented by: Sodium Chloride () 10 - 40 ml IV UD PRN PRN Reason: SALINE FLUSH Tamsulosin HCl (Flomax) 0.4 mg PO DAILY@0830 [facility] Last Admin: 01/18/20 13:01 Dose: 0.4 mg Documented by: Discharge Diet: No Restrictions Discharge Activity: Return to Normal Activity Call your doctor if you observe: Shortness of breath, Dizziness, Fainting spells, Chest pain Home Medications: Medications to take at Discharge Citalopram [Celexa] 20 mg PO DAILY 03/17/14 Omeprazole [Prilosec] 20 mg PO DAILY 03/17/14 Multivitamin [Daily Multiple Vitamin] 1 ea PO DAILY 05/16/17 ropinirole 0.5 mg tablet 4 mg PO TID 08/20/17 amlodipine 10 mg tablet 10 mg PO DAILY tab 09/04/19 clopidogrel 75 mg tablet 75 mg PO DAILY #90 tab 09/04/19 latanoprost 0.005 % eye drops 1 drp OPHTHALMIC DAILY 09/04/19 nitroglycerin 0.4 mg sublingual tablet 0.4 mg SUBLINGUAL Q5-15M tab 09/04/19 tamsulosin 0.4 mg capsule 0.4 mg PO DAILY cap 09/04/19 niacin 500 mg capsule,extended release 500 mg PO BID 09/16/19 atorvastatin 10 mg tablet 10 mg PO DAILY #90 tab 10/29/19 hydrochlorothiazide 25 mg tablet 25 mg PO DAILY tab 01/16/20 metoprolol succinate 25 mg tablet,extended release 24 hr 25 mg PO DAILY tab 01/16/20 Ascorbic Acid [Vitamin C] 1,000 mg PO DAILY 01/18/20 Primary Care Physician: Brian Mackenzie III, MD [Primary Care Provider] - Please follow up with your Primary Care Physician in: 1 Week Please Follow Up With: Anatoliy Arnett MD When: As needed, call if further bleeding Please Follow Up With: Dejuan Brooks MD When: As scheduled Disposition: Home Minutes spent on discharge:: 35 Patient Condition:: Stable Medical Necessity - Tobacco Use Smoking Status: Former smoker Tobacco Use: Pipe Meaningful Use Info Meaningful Use Diagnoses (Choose all that apply): None applicable
[2020-01-19] MEDS: Citalopram 20 MG Tablet PO (11:13)
[2020-01-19] MEDS: Pantoprazole Sodium 40 MG Tablet PO (11:13)
[2020-01-19] MEDS: Tamsulosin HCl 0.4 MG Capsule PO (11:13)
[2020-01-19] MEDS: Latanoprost 0.005% 1 Bottle 1 DRP OPHTHALMIC (11:13)
--- NOTE | 2020-01-19 13:29 | CASEMGMT ---
ZACKARY CM in to discuss NO form with patient. Patient voiced understanding of NO form. Patient signed form and copy provided to patient. Signed NO form placed in chart. Patient had no other questions or concerns at this time.
== END 2020-01-19 14:59 | disposition home or self-care (01) ==
LOC: ED 07:22 → MS3 10:10
PROVIDERS: Nurse Practitioner Family; Surgery; Admitting Provider Internal Medicine; Emergency Provider Emergency Medicine; PCP Family Medicine; Visit Provider Internal Medicine
PROC: 0DJD8ZZ Inspection of Lower Intestinal Tract, Via Natural or Artificial Opening Endoscopic (ICD-10-PCS; CPT 45378; principal; 2020-01-19 09:55)
DX: K57.31 Diverticulosis of large intestine without perforation or abscess with bleeding (principal); I25.10 Atherosclerotic heart disease of native coronary artery without angina pectoris; E78.5 Hyperlipidemia, unspecified; I10 Essential (primary) hypertension; I73.9 Peripheral vascular disease, unspecified; N40.0 Benign prostatic hyperplasia without lower urinary tract symptoms; K21.9 Gastro-esophageal reflux disease without esophagitis; F41.9 Anxiety disorder, unspecified; R06.09 Other forms of dyspnea; Z79.899 Other long term (current) drug therapy; Z79.02 Long term (current) use of antithrombotics/antiplatelets; Z79.82 Long term (current) use of aspirin; Z87.891 Personal history of nicotine dependence; K64.9 Unspecified hemorrhoids
CPT/HCPCS: 43235; 45378; 36415; 80053; 82274; 85014; 85018; 85025; 85610; 85730; 87635; 93005; 96360; 96361; 99218; 99285; G2023; J7030; A4216; G0378; U0003

== ENCOUNTER 2020-08-01 05:23 | Emergency (ER) | payer MEDICARE, SELFPAY ==
[2019-09-08 13:16] VITALS: BMI 24.7
[2020-01-19 08:11] VITALS: BMI 23.0
[2020-08-01 05:24] VITALS: BP 222/96; PULSE 85; RESP 16; TEMP 36.7; O2SAT 95; BMI 23.8
--- NOTE | 2020-08-01 05:30 | ED.VIS.GEN ---
History of Present Illness Chief Complaint: Complaint Informant: Patient Onset: Hours - 5-6 Context: Gradual Onset Timing: Continuous Quality: urinary retention Current Severity: Severe Maximum Severity: Severe Worsened by: trying to urinate Relieved by: nothing Associated Symptoms: none Narrative: Patient states he has been on Flomax for a long time and it makes him pee a lot. Therefore, a week ago he decided to stop taking it. He states now suddenly, he is unable to urinate since 5 or 6 hours prior to arrival. States he has known prostate problems has never necessitated surgery. Denies any fevers, dysuria, hematuria, nausea, vomiting, low back discomfort. States he is very uncomfortable because he feels like he needs to urinate. He states he is on some type of blood thinner but does not know what it is, states he takes a baby aspirin with it. He states it is not clopidogrel/Plavix. He has a history of cardiac stent and pacemaker placement but no atrial fibrillation or stroke history. - Past Medical History (1) Atherosclerosis of coronary artery of [place] heart without angina pectoris Status: Chronic (2) Essential (primary) hypertension Status: Chronic (3) Hyperlipidemia Status: Chronic (4) Peripheral vascular occlusive disease Status: Chronic Comment: left lower extremity endovascular intervention with stenting (5) History of coronary artery stent placement Status: Resolved Comment: PCI-JAM mid LAD using a 2.5 x 32 mm Promus Synergy 09/08/2019 Past Medical History - Allergies and Home Meds Allergies/Adverse Reactions: Allergies Sulfa (Sulfonamide Antibiotics) Allergy (Verified 01/18/20 07:02) Rash lisinopril Adverse Reaction (Verified 01/18/20 07:02) Other cough Primary Care Physician: Brian Mackenzie III, MD [Primary Care Provider] - Artem Giraldo MD [STAFF PHYSICIAN] - 5-7 Days Smoking Status: Former smoker Review of Systems General: Denies: Chills, Fever, Sweats Eyes: Denies: Visual changes - bilaterally, Diplopia ENT: Denies: Rhinorrhea, Sore throat Cardiovascular: Denies: Chest pain, Palpitations Respiratory: Denies: Dyspnea, Cough, Dyspnea on exertion Gastrointestinal: Reports: Abdominal pain - Feels like full bladder. Denies: Nausea, Vomiting, Diarrhea, Melena, Hematochezia Genitourinary: Reports: - - Urinary retention. Denies: Dysuria, Hematuria, Frequency Musculoskeletal: Denies: Back pain, Extremity Pain Skin: Denies: Rash, Wounds Neurological: Denies: Headache, Weakness, Numbness Physical Exam Vital Signs/Narrative: Vital Signs Temp Pulse Resp BP Pulse Ox 08/01/20 05:24 98.0 F 85 16 222/96 H 95 Inital Vital Signs reviewed: Yes General: Well nourished, Well developed, No Acute Distress - But uncomfortable Head: Normocephalic, Atraumatic Eyes: Perrl, EOMI ENT: Moist mucous membranes, No rhinorrhea Neck: Supple, Nontender Cardiovascular: Regular rate, Regular rhythm, No murmurs Respiratory: No distress, CTA bilaterally, Chest nontender Abdomen: Soft, Nondistended, Normal bowel sounds, Tender - Mild suprapubic only. Negative for: Guarding, Rebound tenderness Back: Nontender, Normal Inspection. Negative for: CVA tenderness Extremities: Nontender, No edema Skin: Normal color, No rash Neurological: Alert, Oriented x3, Cranial nerves II-XII grossly intact, Normal Strength, Normal Sensation, Normal Gait Psychological: Normal affect, Normal Mood Diagnostic/Tx/Re-eval Laboratory Tests 08/01/20 Range/Units 05:32 Urine Color Yellow (Yellow) Urine Clarity Clear (Clear) Urine pH 7.0 (5.0 - 8.0) Ur Specific [place] 1.010 (1.002-1.030) Urine Protein 15 H (Negative) mg/dl Urine Glucose (UA) Normal (Normal) mg/dl Urine Ketones Negative (Negative) mg/dl Urine Occult Blood Negative (Negative) /ul Urine Nitrite Negative (Negative) Urine Bilirubin Negative (Negative) mg/dL Urine Urobilinogen Normal (Normal) mg/dl Ur Leukocyte Esterase Negative (Negative) /ul Urine RBC 0 SEEN (0-5) /hpf Urine WBC 0 SEEN (0-5) /hpf Ur Squamous Epith Cells 0 SEEN (0-5) /hpf Urine Bacteria 0 SEEN (None Seen) /hpf Urine Mucus 0 SEEN (<or=2+) /hpf - Medical Decision Making Nursing placed a Aguilar catheter, and afterwards patient felt much better. About a liter of nonbloody transparent yellow urine was drained, with no side effects. Urinalysis shows no infection. Patient was given a leg bag, advised to continue taking his Flomax as he is prescribed, and to follow-up with urology in about a week. He is comfortable with that plan. At discharge, his blood pressure is 132/56. ED Disposition - Plan for ED Patient: Disposition: Home or Assisted Living Diagnosis: Acute urinary retention Instructions: ED Aguilar Catheter, Care, ED Urinary Retention, Male Referrals: Brian Mackenzie III, MD [Primary Care Provider] - Artem Giraldo MD [STAFF PHYSICIAN] - 5-7 Days Additional Instructions: Continue taking your Flomax as prescribed until you follow-up.
[2020-08-01 05:33] VITALS: BP 176/67; PULSE 66; RESP 18; TEMP 36.7; O2SAT 95
[2020-08-01 05:41] LABS: Bacteria 0 SEEN /hpf (None Seen); Color, Urine Yellow (Yellow); Glucose, Dipstick Normal (Normal); Ketone-Dipstick Negative (Negative); Leukocyte Esterase-Dipstick Negative /ul (Negative); Mucous, Urine 0 SEEN /hpf (<or=2+); Nitrite-Dipstick Negative (Negative); Occult Blood-Urine Negative /ul (Negative); Protein-Dipstick 15 mg/dl (Negative); Red Blood Cells-Urine 0 SEEN /hpf (0-5); Squamous Epithelial Cells - UA 0 SEEN /hpf (0-5); Urine Bilirubin Dipstick Negative (Negative); Urine Clarity Clear (Clear); Urine Urobilinogen Normal (Normal); White Blood Cells 0 SEEN /hpf (0-5)
[2020-08-01 06:04] VITALS: BP 137/56
== END 2020-08-01 06:07 | disposition home or self-care (01) ==
PROVIDERS: Emergency Provider Emergency Medicine; PCP Family Medicine
DX: R33.9 Retention of urine, unspecified (principal); I25.10 Atherosclerotic heart disease of native coronary artery without angina pectoris; I10 Essential (primary) hypertension; E78.5 Hyperlipidemia, unspecified; I99.8 Other disorder of circulatory system; Z79.899 Other long term (current) drug therapy; Z87.891 Personal history of nicotine dependence; Z95.5 Presence of coronary angioplasty implant and graft; Z95.0 Presence of cardiac pacemaker
CPT/HCPCS: 81001; 99282

== ENCOUNTER 2020-08-23 10:19 | Emergency (ER) | payer MEDICARE, SELFPAY ==
[2019-09-08 13:16] VITALS: BMI 24.7
[2020-08-23] VITALS (7 sets, daily range): BP systolic 131–152; BP diastolic 57–93; PULSE 65–89; RESP 16–24; TEMP 36.1–36.8; O2SAT 88–98; BMI 23.8
--- NOTE | 2020-08-23 10:53 | ED.DCSUM_ITS ---
History of Present Illness Chief Complaint: Cough Informant: Patient Onset: Days - 3 to 4 days Context: Sudden Onset Timing: Intermittent Quality: Nagging nonproductive cough Location: Respiratory Current Severity: Mild Maximum Severity: Mild Associated Symptoms: Constitutional symptoms, no cardiac symptoms denies dyspnea or ESPINAL Narrative: Patient is an 84-year-old male with no significant past history per his account. He does have a stent in his right and left lower extremity due to PAD. He is a non-smoker. 8 days ago he was with his son who is positive for Covid. Cough started 3 to 4 days ago. The cough is nonproductive. He denies dyspnea or dyspnea on exertion. Denies chest discomfort. He denies rhinorrhea, congestion or postnasal drainage. Denies sore throat. Denies loss of taste or smell. Denies headache. Denies neck pain or neck stiffness. Denies photophobia, ramos ge in vision or blurred vision. Denies decreased hearing, ringing his ears or drainage from his ears. He denies history of VTE. He denies leg pain, swelling discoloration. He denies nausea, vomiting diarrhea. He denies black or maroon- colored stool. He states he feels weak and does not have an appetite. He also reports the nagging nonproductive cough. Prior similar symptoms: No Recent Illness/Hospitalization: No - Past Medical History (1) Atherosclerosis of coronary artery of [place] heart without angina pectoris Status: Chronic (2) Essential (primary) hypertension Status: Chronic (3) Hyperlipidemia Status: Chronic (4) Peripheral vascular occlusive disease Status: Chronic Comment: left lower extremity endovascular intervention with stenting (5) History of coronary artery stent placement Status: Resolved Comment: PCI-JAM mid LAD using a 2.5 x 32 mm Promus Synergy 09/08/2019 Past Medical History - Allergies and Home Meds Allergies/Adverse Reactions: Allergies Sulfa (Sulfonamide Antibiotics) Allergy (Verified 08/23/20 10:21) Rash lisinopril Adverse Reaction (Verified 08/23/20 10:21) Other cough Primary Care Physician: Brian Mackenzie III, MD [Primary Care Provider] - Prior records reviewed: Yes - Double problems which patient denied Lives: Spouse/ Significant Other Smoking Status: Former smoker Alcohol: None Drugs: None Review of Systems General: Reports: Malaise. Denies: Chills, Fever, Subjective, Sweats Eyes: Denies: Visual changes - bilaterally, Blurred Vision - bilaterally ENT: Denies: Bilateral ear pain, Rhinorrhea, Sore throat Cardiovascular: Denies: Chest pain, Palpitations, Heart racing Respiratory: Reports: Cough. Denies: Dyspnea, Sputum, Dyspnea on exertion, Orthopnea, Paroxysmal nocturnal dyspnea Gastrointestinal: Denies: Abdominal pain, Nausea, Vomiting, Diarrhea, Melena, Hematochezia Genitourinary: Denies: Dysuria, Hematuria, Frequency Musculoskeletal: Denies: Myalgias, Arthralgias, Neck pain, Back pain, Extremity Pain Skin: Denies: Rash, Wounds Neurological: Reports: Weakness. Denies: Headache, Parasthesia, Numbness, -, - Endocrine: Denies: Polyuria, Polydipsia Hematologic: Denies: Easy bruising, Easy bleeding Physical Exam Vital Signs/Narrative: Vital Signs Temp Pulse Resp BP Pulse Ox 08/23/20 10:30 98.2 F 71 16 137/78 H 94 08/23/20 10:21 98.2 F 71 16 137/78 H 94 Inital Vital Signs reviewed: Yes General: Well nourished, Well developed, No Acute Distress Head: Normocephalic, Atraumatic Eyes: Perrl, EOMI. Negative for: Pale conjunctiva, Scleral icterus ENT: Moist mucous membranes, No rhinorrhea, TM's clear Neck: Supple, Nontender Cardiovascular: Regular rate, Regular rhythm, No murmurs, Normal S1, Normal S2 Respiratory: No distress, CTA bilaterally, Chest nontender Abdomen: Soft, Nontender, Nondistended, Normal bowel sounds, No masses. Negative for: Hepatomegaly, Splenomegaly, Mass, Pulsatile mass Rectal: Deferred Back: Nontender, Normal Inspection, - - There is no asymmetry, swelling, discoloration, leg vein distention, palpable cords or tenderness along the distribution of the deep venous system. Distal pulses are palpable Extremities: Nontender, No edema Skin: Normal color, No rash, No Trauma. Negative for: Cyanosis, Diaphoresis, Jaundice Neurological: Alert, Oriented x3, Cranial nerves II-XII grossly intact, Normal Strength, Normal Sensation Psychological: Normal affect, Normal Mood Diagnostic/Tx/Re-eval Chest X-Ray - ED: 1 View, Read by ED Physician, Normal, Heart, Mediastinum, Bony Structures, No Acute Disease, Chronic Changes, Right Infiltrate - There is increased interstitial markings right lower lobe. This may represent Covid pneumonia. Unable to pull prior x-rays for comparison., - - X-ray was interpreted by me at 1210. - Medical Decision Making Work-up was undertaken for Covid. I was informed that patient's pulse ox dropped to 88% walking from triage to room 14. Will perform appropriate test for restratification i.e. for CAD mortality/severity score 4 Covid infection Patient's for C mortality score for COVID-19 is 10. This places him at high risk for in-hospital mortality. However patient at rest is not hypoxic. Will consult case management for outpatient oxygen therapy since he did desaturate with ambulation to 88%. ED Disposition - Plan for ED Patient: Disposition: Home or Assisted Living Diagnosis: Pneumonia due to COVID-19 virus, Hypoxic Instructions: Coronavirus Disease 2019 (COVID-19): Caring for Yourself or Others Prescriptions: Dexamethasone [Decadron] 6 mg PO DAILY 5 Days #5 tab Transmission Status: Pending to [facility] Referrals: Brian Mackenzie III, MD [Primary Care Provider] - As Needed
[2020-08-23 11:20] LABS: Absolute Lymphocyte Count 0.37 X10^3/uL (0.83-4.51); Basophil# 0.01 X10^3/uL; Basophil% 0.1 % (0-1); Eosinophil# 0.01 X10^3/uL; Eosinophils% 0.1 % (0-5); Hematocrit 41.3 % (40-54); Hemoglobin 13.8 g/dL (13.0-16.5); Lymphocyte # 0.37 X10^3/ul (4.0); Lymphocyte % 5.2 % (19-41); Mean Corp Hgb Conc 33.4 g/dL (32-36); Mean Corpuscular Hgb 29.4 pg (27.0-32.0); Mean Corpuscular Volume 88.1 fL (80-94); Mean Platelet Vol. 9.7 fl (6.2-12.0); Monocyte# 0.61 X10^3/uL; Monocyte% 8.6 % (0-10); NRBC Flagged by Analyzer 0 % (0-5); Neutrophil # 6.04 X10^3/uL (2.7-7.7); Neutrophil % 85.4 % (47-70); POSITIVE DIFFERENTIAL YES; Platelet Count 165 K/mm3 (150-450); RBC Distribution Width CV 15.3 % (11.6-14.6); RBC Distribution Width SD 49.6 fl (35.1-43.9); Red Blood Count 4.69 M/mm3 (4.6-6.2); White Blood Count 7.1 K/mm3 (4.4-11.0)
[2020-08-23 11:24] LABS: Differential Indicated SCAN CRITERIA MET
[2020-08-23 11:37] LABS: ALB/GLOB Ratio 1.1 RATIO (0.9-2.4); AST(SGOT) 29 U/L (15-37); Alanine Aminotransfer ALT/SGPT 30 U/L (16-61); Albumin, Serum 3.4 g/dL (3.2-5.0); Alkaline Phosphatase 54 U/L (45-117); Anion Gap 5 (5-15); BUN 20 mg/dL (7-18); BUN/Creat Ratio 19.2 RATIO (10-20); Calcium,Total 8.5 mg/dL (8.5-10.1); Chloride 100 mmol/L (98-107); Creatinine, Serum 1.04 mg/dL (0.70-1.30); EST Glomerular Filtration Rate 73 mL/min (>60); Est Glom Filt Rate - Afr Amer 88 mL/min (>60); Estimated Creatinine Clearance 56.54 ml/min; Globulin 3.1 g/dL (2.2-4.2); Glucose 96 mg/dL (74-106); Potassium 3.7 mmol/L (3.5-5.1); Protein, Total 6.5 g/dL (6.4-8.2); Sodium Level 133 mmol/L (136-145)
--- NOTE | 2020-08-23 11:45 | RAD_ITS ---
STUDY: X-RAY CHEST REASON FOR EXAM: Male, 84 years old. Chills, loss of appetite, weakness TECHNIQUE: Single AP portable view of the chest. COMPARISON: Comparison is made with prior study dated 02/20/2020. FINDINGS: EKG electrodes are seen. There now is evidence of focal infiltrate in the right midlung as well as in both lower lobes. Follow-up is recommended. There is no demonstrated pleural abnormality. Normal size heart. Normal mediastinum and susannah. Normal visualized pulmonary arteries. There is atherosclerotic tortuosity of the aortic arch and descending thoracic aorta. There are diffuse degenerative changes of the visualized thoracic spine. Normal visualized ribs, clavicles, and shoulders. There is no demonstrated abnormality of the visualized soft tissue structures of the upper abdomen. RAD/Chest 1 View (Portable) IMPRESSION: Focal infiltrates seen in the right midlung as well as in both lower lobes. Electronically Signed: Jose Marrero MD at 12:21 EST , Service support ,
[2020-08-23 11:46] LABS: Lactic Acid 0.7 mmol/L (0.4-1.9)
[2020-08-23] MEDS: dexAMETHasone 10 MG/ML Vial IV (12:56)
--- NOTE | 2020-08-23 13:33 | CM.ED ---
SOCIAL WORK Informant: Dr. Ram Reason for Consult: COVID-19 positive test result, home O2 needs Patient updated on need for home O2. Patient lives home with and reports is no longer a smoker. Patient in agreement with home O2 needs being set up through [facility]. [facility] Quickscript completed by Dr. Ram. Quickscript, demographic sheet and positive COVID-19 test result faxed and called to [facility] [place]. R.T. notified and provided with portable tank and pulse ox to review with patient. Patient informed of need to call [facility] [place] [facility] upon discharge to have home O2 set up in the home. Patient verbalized understanding. Plan: Home with Home [address] [facility] [place] Rnadall Spence MSW, [employer]
--- NOTE | 2020-08-23 14:32 | ED.DCSUM_ITS ---
- ER Visit Summary Date of Service: 08/23/20 Chief Complaint: [] History of Present Illness: The patient is a 84 M [] Physical Examination: [] Test Results: [] Emergency Department Course and Treatment: [] Treatment Plan: [] Disposition: [] Impression: [] This note was generated with [employer] dictation software. It may contain incorrect words, spelling, and punctuation that were not noted in review of the chart prior to signing ED Disposition - Plan for ED Patient: Disposition: Home or Assisted Living Diagnosis: Pneumonia due to COVID-19 virus, Hypoxic Instructions: Coronavirus Disease 2019 (COVID-19): Caring for Yourself or Others Prescriptions: Dexamethasone [Decadron] 6 mg PO DAILY 5 Days #5 tab Transmission Status: Pending to [facility] #30 Referrals: Brian Mackenzie III, MD [Primary Care Provider] - As Needed
--- NOTE | 2020-08-24 14:20 | CASEMGMT ---
ER DC Call ER Date: 08/23/2020 Disposition: Home with oxygen Diagnosis: Covid 19 attempted call to phone. No answer and no messaging with name identifier. Reagan WEATHERSN RN ACM
--- NOTE | 2020-08-25 15:20 | NURSING ---
RNCM Home Oxygen F/u Call: Called patient cell phone, answered by patient Ignacia Soriano- this technical writer heard patient in the background and was able to answer questions from that this technical writer asked. Patient still feeling generalized weakness. states that patient did eat some today for the first time and per patient feels the same from when he was discharged from the ER. Denies feeling worse but per asking if he can turn his oxygen up higher. Patient has a pulse oximeter at home but has not checked his oxygen level today, instructed to do so while on the phone. This technical writer explained a good wave form on oximeter. states patient is currently on 2L now. Pulse Ox reading in Mid-upper 80's with pulse 60-70's with fluctuating bars 2-4 for wave form. States patients hands are cool to touch. Advised to bump up oxygen to 3L as that is what he was discharged on and O2 sat 94-98%. Advised to keep pulse ox on and try to warm hands some, get a consistent reading after a few minutes of being on 3L. Instructed to return if patient feeling worse, worsening SOB, and O2 sat not increasing above 93% despite increasing oxygen and if needs to increase oxygen further. states understanding, states oxygen company to come out tomorrow and needing portable tanks exchanged. states understanding on the bar level of oximeter to be a consistent/accurate reading. Agrees to RNCM calling back tomorrow to check on patient. BEBA Ramos
== END 2020-08-23 14:45 | disposition home or self-care (01) ==
PROVIDERS: Emergency Provider Emergency Medicine; PCP Family Medicine
DX: U07.1 COVID-19 (principal); J12.82 Pneumonia due to coronavirus disease 2019; R09.02 Hypoxemia; I25.10 Atherosclerotic heart disease of native coronary artery without angina pectoris; I10 Essential (primary) hypertension; E78.5 Hyperlipidemia, unspecified; Z79.02 Long term (current) use of antithrombotics/antiplatelets; Z79.82 Long term (current) use of aspirin; Z79.899 Other long term (current) drug therapy; Z87.891 Personal history of nicotine dependence; Z95.5 Presence of coronary angioplasty implant and graft
CPT/HCPCS: 36415; 71045; 80053; 83605; 85025; 86140; 87040; 87426; 99284; A4216

== ENCOUNTER 2020-08-25 18:19 | Inpatient (IN) | payer MEDICARE, SELFPAY ==
[2019-09-08 13:16] VITALS: BMI 24.7
[2020-08-23 10:21] VITALS: BMI 23.8
[2020-08-25 18:26] VITALS: BP 135/50; PULSE 64; RESP 34; TEMP 37; O2SAT 83; BMI 24.5
[2020-08-25 18:30] VITALS: BP 135/50; PULSE 63; RESP 31; TEMP 37; O2SAT 97
--- NOTE | 2020-08-25 18:33 | EKG12_ITS ---
Test Reason : SOB Blood Pressure : / mmHG Vent. Rate : 063 BPM Atrial Rate : 063 BPM P-R Int : 118 ms QRS Dur : 094 ms QT Int : 404 ms P-R-T Axes : 034 005 007 degrees QTc Int : 413 ms Normal sinus rhythm Normal ECG Confirmed by RITA MANUEL, YUAN ([id number]), production editor GRAHAM NEWSOME ([id number]) on 08/30/2020 11:14:20 AM Referred By: INÉS Confirmed By:ABEL SALINAS MD
--- NOTE | 2020-08-25 18:50 | ED.VIS.GEN ---
History of Present Illness Chief Complaint: Shortness of Breath Informant: Patient Narrative: Patient is an 84-year-old male with a past medical history of CAD with stents, hypertension, hyperlipidemia, history of GI bleed who presents to the emergency department for hypoxia and shortness of breath. He was diagnosed with coronavirus this past Sunday. He states he has had symptoms for around 1 week now. His shortness of breath has been progressively getting worse. He is typically on 3 L of oxygen and was satting in the high 70s with that. He has been coughing. He denies any chest pain associated with this. He has had intermittent fevers and chills. He denies any nausea/vomiting or diarrhea. He states that over the past week he has developed black stools. He is currently still on Plavix. He denies any lightheadedness or syncopal episodes. He has not had any leg swelling or calf pain. Past Medical History - Allergies and Home Meds Allergies/Adverse Reactions: Allergies Sulfa (Sulfonamide Antibiotics) Allergy (Verified 08/23/20 10:21) Rash lisinopril Adverse Reaction (Verified 08/23/20 10:21) Other cough Prior records reviewed: Yes Past Medical History: - - Per HPI Smoking Status: Former smoker Review of Systems All systems negative except as indicated General: Reports: Chills, Fever. Denies: Sweats Eyes: Denies: Visual changes - bilaterally, Diplopia ENT: Denies: Rhinorrhea, Sore throat Cardiovascular: Denies: Chest pain, Palpitations Respiratory: Reports: Dyspnea, Cough Gastrointestinal: Reports: Melena. Denies: Abdominal pain, Nausea, Vomiting, Diarrhea, Hematochezia Genitourinary: Denies: Dysuria, Hematuria, Frequency Musculoskeletal: Denies: Back pain, Extremity Pain Skin: Denies: Rash, Wounds Neurological: Denies: Headache, Weakness, Numbness Physical Exam Vital Signs/Narrative: Vital Signs Temp Pulse Resp BP Pulse Ox 08/25/20 18:30 98.6 F 63 31 H 135/50 H 97 08/25/20 18:26 98.6 F 64 34 H 135/50 H 83 Inital Vital Signs reviewed: Yes General: Well nourished, Well developed, No Acute Distress Head: Normocephalic, Atraumatic Eyes: Perrl, EOMI ENT: Moist mucous membranes, No rhinorrhea Neck: Supple, Nontender Cardiovascular: Regular rate, Regular rhythm, No murmurs Respiratory: CTA bilaterally, Chest nontender, - - Mildly tachypneic, some retractions present. Abdomen: Soft, Nontender, Nondistended, Normal bowel sounds Back: Nontender, Normal Inspection Extremities: Nontender, No edema. Negative for: Calf Tenderness Skin: Normal color, No rash Neurological: Alert, Oriented x3, Cranial nerves II-XII grossly intact, Normal Strength, Normal Sensation Psychological: Normal affect, Normal Mood Diagnostic/Tx/Re-eval Chest X-Ray - ED: - - Single view portable x-ray interpreted by myself. Does have patchy opacities of bilateral lung pena. This is consistent with coronavirus infection. Normal cardiac silhouette. Normal mediastinum. No pleural effusions. Agree with radiologist interpretation. - EKG Initial EKG Interpretation: - - Rate of 63 bpm and normal sinus rhythm. Normal intervals. Normal axis. No significant ST elevations or depressions. No T wave abnormalities. - Medical Decision Making Patient presents to the emergency department for hypoxia with known Covid. He also complaining of some melena. He was satting in the high 70s on his baseline oxygen and has been started on nonrebreather mask. He is feeling much better with this treatment. Will check EKG, chest x-ray and basic lab work. We will give a dose of Decadron. We will give Protonix for the suspected GI bleed. Despite complaint of melena his hemoglobin is within normal limits. He is given a dose of Protonix. UN is only mildly elevated. He is feeling much better after being started on nonrebreather. He otherwise has been stable. He is given a dose of Decadron for treatment for the coronavirus infection. He will require hospitalization given his significant hypoxia. He is agreeable with this plan. ED Disposition - Plan for ED Patient: Disposition: Acute Care Hospital [facility] Diagnosis: Pneumonia due to COVID-19 virus, Hypoxia
[2020-08-25 19:04] LABS: Absolute Lymphocyte Count 0.41 X10^3/uL (0.83-4.51); Absolute Neutrophil Count 8.2 X10^3/uL (2.0-7.7); Hematocrit 41.4 % (40-54); Lymphocyte # 0.41 X10^3/ul (4.0); Lymphocyte % 4.5 % (19-41); Mean Corp Hgb Conc 33.8 g/dL (32-36); Mean Corpuscular Hgb 29.5 pg (27.0-32.0); Mean Corpuscular Volume 87.3 fL (80-94); Mean Platelet Vol. 9.7 fl (6.2-12.0); Monocyte# 0.39 X10^3/uL; Monocyte% 4.3 % (0-10); NRBC Flagged by Analyzer 0 % (0-5); Neutrophil # 8.23 X10^3/uL (2.7-7.7); Neutrophil % 90.9 % (47-70); POSITIVE DIFFERENTIAL YES; Platelet Count 173 K/mm3 (150-450); RBC Distribution Width CV 14.8 % (11.6-14.6); RBC Distribution Width SD 47.8 fl (35.1-43.9); Red Blood Count 4.74 M/mm3 (4.6-6.2); White Blood Count 9.1 K/mm3 (4.4-11.0)
--- NOTE | 2020-08-25 19:05 | RAD_ITS ---
STUDY: X-RAY CHEST REASON FOR EXAM: Male, 84 years old. Cough. COVID Positive. TECHNIQUE: Frontal view of the chest COMPARISON: 08/23/20 FINDINGS: There is patchy airspace opacity in the mid to lower lung pena which is worse when compared with the prior exam. There are no pleural effusions. There is no pneumothorax. The heart is normal in size. The visualized osseous structures are within normal limits. RAD/Chest 1 View (Portable) IMPRESSION: Patchy airspace opacity in the mid to lower lung field which is worse when compared with the prior exam. This is consistent with pneumonia in this COVID positive patient. Electronically Signed: Ben Minaya MD at 19:17 EST Tel , Service support ,
[2020-08-25 19:11] VITALS: O2SAT 96
[2020-08-25] MEDS: dexAMETHasone 10 MG/ML Vial 6 MG IV (19:12)
[2020-08-25 19:13] LABS: Differential Indicated SCAN CRITERIA MET
[2020-08-25 19:24] LABS: AST(SGOT) 38 U/L (15-37); Alanine Aminotransfer ALT/SGPT 39 U/L (16-61); Albumin, Serum 3.3 g/dL (3.2-5.0); Alkaline Phosphatase 48 U/L (45-117); Anion Gap 8 (5-15); BUN 26 mg/dL (7-18); BUN/Creat Ratio 22.2 RATIO (10-20); Calcium,Total 8.3 mg/dL (8.5-10.1); Chloride 98 mmol/L (98-107); Creatinine, Serum 1.17 mg/dL (0.70-1.30); EST Glomerular Filtration Rate 63 mL/min (>60); Est Glom Filt Rate - Afr Amer 77 mL/min (>60); Estimated Creatinine Clearance 50.26 ml/min; Globulin 3.2 g/dL (2.2-4.2); Glucose 95 mg/dL (74-106); Potassium 3.7 mmol/L (3.5-5.1); Protein, Total 6.5 g/dL (6.4-8.2); Sodium Level 133 mmol/L (136-145)
[2020-08-25 19:27] LABS: Differential Comment SCANNED
[2020-08-25 19:59] LABS: BNP,B-Type NATRIURETIC PEPTIDE 156.3 pg/mL (0-100)
--- NOTE | 2020-08-25 20:18 | PCM.HP.STD ---
Problem List (1) Pneumonia due to COVID-19 virus Status: Acute (2) GI bleed Status: Acute Qualifiers: GI bleed type/associated pathology: anorectal hemorrhage Qualified Code(s): K62.5 - Hemorrhage of anus and rectum (3) Acute respiratory failure with hypoxia Status: Acute (4) BPH (benign prostatic hyperplasia) Status: Chronic Qualifiers: Lower urinary tract symptom presence: unspecified whether lower urinary tract symptoms present Qualified Code(s): N40.0 - Benign prostatic hyperplasia without lower urinary tract symptoms (5) Chronic anemia Status: Chronic (6) Anxiety and depression Status: Chronic (7) Atherosclerosis of coronary artery of elim ira heart without angina pectoris Status: Chronic Qualifiers: Coronary Disease-Associated Artery/Lesion type: elim [place] artery Qualified Code(s): I25.10 - Atherosclerotic heart disease of elim [place] coronary artery without angina pectoris (8) History of coronary artery stent placement Status: Resolved Comment: PCI-JAM mid LAD using a 2.5 x 32 mm Promus Synergy 09/08/2019 (9) Essential (primary) hypertension Status: Chronic (10) Hyperlipidemia Status: Chronic Qualifiers: Hyperlipidemia type: unspecified Qualified Code(s): E78.5 - Hyperlipidemia, unspecified (11) Peripheral vascular occlusive disease Status: Chronic Comment: left lower extremity endovascular intervention with stenting History of Present Illness Date of Admission: 08/25/20 Chief Complaint: Recent Dx COVID, hypoxic, dyspnea, black tarry stools The patient is a 84 y/o M w/ PMHx: BPH, CAD s/p PCI mid LAD, PAD s/p LLE PCI, HTN, HLD, GERD, PVD, PAD, Anxiety and Depression who presents to the [facility] ED on 08/25/20 with history of diagnosis this past Sunday with Covid with ongoing symptoms for approximately 1 week including fever, chills, body aches, headaches, cough and dyspnea progressively worsening prompting ED return. He denies any nausea, emesis, abdominal cramping, diarrhea, alteration sense of taste or smell. He does state that over the last week he has had black appearing stools with no specific lightheadedness or dizziness but given they have not been resolving he also was concerned. Patient reportedly is on 3 L of oxygen which has been recently initiated and has been noting saturations in the high 70s for the last 24 hours. Work-up in the ED included T 98.6, heart rate 64, BP 135/50, respiratory rate 34, initially 83% on 3 L nasal cannula with improvement to 97% on a nonrebreather 10 L, CBC with WC 9.1, hemoglobin 14, platelet 173 with left shift and lymphopenia, CMP with sodium 133, BUN/creatinine 26/1.17, lactic acid 1.0, troponin less than 0.015, blood culture x2 pending per ED, blood type a negative, chest x-ray with patchy airspace opacity mid to lower lung pena worse compared to previously consistent with Covid pneumonia, EKG with sinus rhythm with no acute evidence of ischemia. In the ED patient initiated on Protonix drip as well as Decadron 6 mg IV x1. Patient with history of prior GI bleed with endoscopies 01/16 noted to be diverticular at that time. Past Medical History Past Medical History (Chronic Problems): Chronic Problems (Last Reviewed 01/16/20 @ 13:50 by Mary KING, PA) BPH (benign prostatic hyperplasia) (Chronic) Chronic anemia (Chronic) Anxiety and depression (Chronic) Atherosclerosis of coronary artery of elim ir[place] heart without angina pectoris (Chronic) Essential (primary) hypertension (Chronic) Hyperlipidemia (Chronic) Peripheral vascular occlusive disease (Chronic) left lower extremity endovascular intervention with stenting Medical History: Medical History (Last Reviewed 01/16/20 @ 13:50 by Mary KING, PA) Atherosclerosis of coronary artery of elim ir[place] heart without angina pectoris (Chronic) I25.10 Essential (primary) hypertension (Chronic) I10 Hyperlipidemia (Chronic) E78.5 Peripheral vascular occlusive disease (Chronic) I73.9 left lower extremity endovascular intervention with stenting Anxiety F41.9 BPH (benign prostatic hyperplasia) N40.0 Diverticulosis K57.90 GERD (gastroesophageal reflux disease) K21.9 GERD (gastroesophageal reflux disease) K21.9 Incontinence R32 Allergies Sulfa (Sulfonamide Antibiotics) Allergy (Verified 08/23/20 10:21) Rash lisinopril Adverse Reaction (Verified 08/23/20 10:21) Other cough Home Medications: Ambulatory Orders Medication Instructions Recorded Citalopram [Celexa] 20 mg PO DAILY 03/17/14 Omeprazole [Prilosec] 20 mg PO DAILY 03/17/14 Multivitamin [Daily Multiple 1 ea PO DAILY 05/16/17 Vitamin] amlodipine 10 mg tablet 10 mg PO DAILY tab 09/04/19 nitroglycerin 0.4 mg sublingual 0.4 mg SUBLINGUAL Q5-15M tab 09/04/19 tablet tamsulosin 0.4 mg capsule 0.4 mg PO DAILY cap 09/04/19 niacin 500 mg capsule,extended 500 mg PO BID 09/16/19 release hydrochlorothiazide 25 mg tablet 25 mg PO DAILY tab 01/16/20 metoprolol succinate 25 mg 25 mg PO DAILY tab 01/16/20 tablet,extended release 24 hr Ascorbic Acid [Vitamin C] 1,000 mg PO DAILY 01/18/20 Aspirin 81 mg PO DAILY 08/23/20 Ferrous Sulfate 325 mg PO BID 08/23/20 Mupirocin [Bactroban] 1 applic TOPICAL TID 08/23/20 Atorvastatin Calcium 10 mg PO DAILY 08/25/20 Clopidogrel Bisulfate [Clopidogrel] 75 mg PO DAILY 08/25/20 Dexamethasone [Decadron] 6 mg PO DAILY 08/25/20 Finasteride 5 mg PO DAILY 08/26/20 Latanoprost/Pf [Latanoprost 0.005% 1 drp EACH EYE QHS 08/26/20 Eye Drop] Ropinirole HCl 4 mg PO TID 08/26/20 Surgical History: Surgical History (Last Reviewed 01/18/20 @ 13:24 by Zahraa Blanchard NP, PASTE UP COPY CAMERA OPERATOR-C) History of coronary artery stent placement (Resolved) Onset Date: 09/08/19 Z95.5 PCI-JAM mid LAD using a 2.5 x 32 mm Promus Synergy 09/08/2019 History of angioplasty of peripheral vessel Z98.62 left lower extremity endovascular intervention with stenting, History of esophagogastroduodenoscopy (EGD) Z98.890 History of herniorrhaphy Z98.890, Z87.19 Surgical History: - - Bilateral inguinal hernia repair, PCI x1, bilateral lower extremity stenting. Psychiatric History: Anxiety, Depression Lives: Spouse/ Significant Other Smoking Status: Former smoker - Patient quit cigarette tobacco usage and 1999 with prior to this 1 pack/day since he been a teenager. Tobacco Use: Non-smoker Alcohol: Occasional Drugs: None - *Family History Maternal Family History: Family History (Last Reviewed 01/18/20 @ 13:01 by Zahraa Santo PASTE UP COPY CAMERA OPERATOR, PASTE UP COPY CAMERA OPERATOR-C) Father CVA (cerebral vascular accident) Mother CVA (cerebral vascular accident) Hypertension History Items: Stroke Paternal Family History: Family History (Last Reviewed 01/18/20 @ 13:01 by Zahraa Blanchard PASTE UP COPY CAMERA OPERATOR, PASTE UP COPY CAMERA OPERATOR-C) Father CVA (cerebral vascular accident) Mother CVA (cerebral vascular accident) Hypertension History Items: Hypertension, Stroke Review of Systems Constitutional: Reports: Anorexia, Chills, Fever, Malaise, Weakness, Fatigue. Denies: Weight Change HEENT: Reports: Head Aches. Denies: Sinus Congestion, Sinus Drainage Cardiovascular: Denies: Chest Pain, Palpitations Respiratory: Reports: Cough, Shortness of Breath, Shortness of breath upon exertion. Denies: Shortness of breath at rest, Sputum production, Wheezing Gastrointestinal: Denies: Abdominal Pain, Nausea, Vomiting Genitourinary: Denies: Dysuria Musculoskeletal: Reports: Joint Pain, Muscle pain. Denies: Joint Tenderness Skin: Denies: Rash, Wounds Neurological: Denies: Numbness, Tingling, Focal weakness Psychiatric: Reports: Anxiety, Depression. Denies: Homicidal Ideations, Suicidal Ideations Hematologic/ Lymphatic: Denies: Easy Bruising, Easy Bleeding VTE Information - Inpt Only VTE Present on Admission: No VTE Mechan Device Prophylaxis: SCD's VTE Pharm Prophylaxis ordered?: No Reason prophylaxis not ordered:: Medical Contraindication Patient Problems: Active and Suspected Problems (Last Reviewed 01/16/20 @ 13:50 by Mary KING, PA) Pneumonia due to COVID-19 virus (Acute) Hypoxia (Acute) Subjective: Patient seated upright in the ED bed, fatigued and ill-appearing, increased work of breathing, nonrebreather in place. Objective: Physical Examination: General: awake, alert, oriented x 3 including self, place, recent events, fatigued, remains cooperative, seated upright in the ED bed, increased work of breathing, nonrebreather in place. Skin: normal color, turgor, no icterus, cyanosis. HEENT: AT/NC, EOMI, PERRLA, dry MM, no carotid bruits or JVD noted although difficult assessment given nonrebreather. Lungs: Diminished breath sounds, greater throughout, increased work of breathing, evident mild respiratory distress, nonrebreather in place, no rales, ronchi or wheezing. Heart: Regular rate and rhythm; no gallop, rub audible. Abdomen: soft, NTTP, ND, mildly hyperactive BS, no HSM. Extremities: no cyanosis or clubbing. Neurological: patient awake, alert, oriented as noted; cognitive function suspect mildly decreased from baseline intact secondary to acute illness; pupils equally reactive to light and accomodation; cranial nerves II-XII grossly normal, moving all 4 extremities, no focal deficits, strength severely global decrease secondary to acute presentation. Psychiatric: affect appears fatigued, ill-appearing, evidence mild respiratory distress, no acute evidence of depressive or anxiety feelings. - Physical Exam Vitals/I&O's: Vital Signs Temp Pulse Resp BP Pulse Ox 98.6 F 63 31 H 135/50 H 97 08/25/20 18:30 08/25/20 18:30 08/25/20 18:30 08/25/20 18:30 08/25/20 18:30 Oxygen Flow Rate (L/min) 10 Oxygen Delivery Method Non-Rebreather Weight: 170 lb 13.732 oz Body Mass Index (BMI) 24.5 Laboratory Results 08/25/20 18:50: WBC 9.1, RBC 4.74, Hgb 14.0, Hct 41.4, MCV 87.3, MCH 29.5, MCHC 33.8, RDW Std Deviation 47.8 H, RDW Coeff of Jihan 14.8 H, Plt Count 173, MPV 9.7, Immature Gran % (Auto) 0.300, Neut % (Auto) 90.9 H, Lymph % (Auto) 4.5 L, Sherman % (Auto) 4.3, Eos % (Auto) 0.0, Baso % (Auto) 0.0, Absolute Neuts (auto) 8.2 H, Absolute Lymphs (auto) 0.41 L, Nucleated RBC % 0, Differential Comment SCANNED 08/25/20 18:50: Sodium 133 L, Potassium 3.7, Chloride 98, Carbon Dioxide 27.0, Anion Gap 8, BUN 26 H, Creatinine 1.17, Estim Creat Clear Calc 50.26, Est GFR (MDRD) Af Amer 77, Est GFR (MDRD) Non-Af 63, BUN/Creatinine Ratio 22.2 H, Glucose 95, Calcium 8.3 L, Total Bilirubin 1.00, AST 38 H, ALT 39, Alkaline Phosphatase 48, Troponin I < 0.015, Total Protein 6.5, Albumin 3.3, Globulin 3.2, Albumin/Globulin Ratio 1.0 08/25/20 18:50: Lactic Acid 1.0 08/25/20 18:50: B-Natriuretic Peptide 156.3 H 08/25/20 18:50: Blood Type A NEGATIVE, Antibody Screen NEGATIVE Assessment/Plan All Active Problems (Last Reviewed 01/16/20 @ 13:50 by Mary Luis PA, PA) Pneumonia due to COVID-19 virus (Acute) Hypoxia (Acute) Acute respiratory failure with hypoxia (Acute) GI bleed (Acute) Exertional angina (Acute) Dyspnea on exertion (Acute) History of coronary artery stent placement (Resolved 09/08/19) Blood in urine (Resolved) UTI (urinary tract infection) (Resolved) The patient is a 84 y/o M w/ PMHx: BPH, CAD s/p PCI mid LAD, PAD s/p LLE PCI, HTN, HLD, GERD, PVD, PAD, Anxiety and Depression who presents to the [facility] ED on 08/25/20 with history of diagnosis this past Sunday with Covid with ongoing symptoms for approximately 1 week including fever, chills, body aches, headaches, cough and dyspnea progressively worsening prompting ED return. Acute Hypoxic Respiratory Failure secondary to Acute Bilateral Pneumonia secondary to Acute Viral Syndrome, COVID-19: Will admit to the COVID ICU status, will consult ICU physician, currently NRB, may need airvo or BIPAP, will obtain ABG, PRN albuterol, HOB, IS parameters w/ pending sputum cultures, respiratory viral panel and urine antigens, will obtain D-dimer, procalcitonin, CRP, CPK, Ferritin, LDH, continue supportive care including q 2 hour turning including prone given no prone bed availability and judicious hydration, closely monitor for worsening status for ARDS and multiorgan failure, consult Dr. Almonte ID, continue treatment with IV Decadron, initiate Remdesivir given acute presentation pending ID evaluation. ? Acute GI Bleed: Patient reportedly with black stools, hemoglobin 14, will obtain serial H+H q 6 hours, maintain on IV PPI, will allow clears only with NPO transition if necessary, if evidence of actual bleeding then may consider general surgery consultation but given recent + COVID status will defer immediate consultation, will maintain on clears pending surgery evaluation. Given recent COVID positive status patient will likely not have immediate EGD evaluations but recently had endoscopies 12/2019 with noted diverticular bleed is etiology at that time. Holding plavix, aspirin given this presentation. CAD: Status post PCI mid LAD 09/08/2019, following with Dr. Brooks, holding aspirin and Plavix, continue statin, metoprolol, not on DYLAN inhibitor or ARB with allergy listed. PAD: Status post lower extremity PCI, holding as noted aspirin and Plavix given acute presentation #2, continue hypertensive regimen. Chronic anemia: Admission hemoglobin 14, stable despite #2 report, we will continue patient home iron supplementation. Hypertension: Continue home regimen including Norvasc, hydrochlorothiazide, metoprolol with hold parameters, PRN hydralazine. Hyperlipidemia: Continue home statin regimen. BPH: We will continue patient home finasteride regimen as well as Flomax. Anxiety and depression: We will continue patient home Celexa regimen. DVT prophylaxis: SCDs, holding chemoprophylaxis addition given #2 pending further evaluation, add if appropriate especially given #1. CODE status: Patient MICHEL is his and living will is currently in place. Discussed CODE status at length including difference between FULL code, DNR-CCA and DNR-CC status. Following discussions about the differences in these status, requested DNR-CCA, no intubation. Advanced Care Planning Face to Face Time: 16 minutes. Inpatient E&M: 51427 Init Hosp L3 Procedures: 51938 Advncd Care Plan 30 Min
[2020-08-25 22:36] VITALS: BP 138/65; PULSE 72; RESP 25; TEMP 36.9; O2SAT 90
[2020-08-26] VITALS (30 sets, daily range): BP systolic 127–164; BP diastolic 48–64; PULSE 52–70; RESP 16–32; TEMP 36.4–37.9; O2SAT 89–96; BMI 22.8
--- NOTE | 2020-08-26 00:41 | PCS.PANDOC ---
PANDEMIC DOCUMENTATION INITIATED: Date: 08/26/20 Time: 001
[2020-08-26 00:44] LABS: Ferritin 524 ng/mL (26-388); LDH 313 U/L (87-241)
[2020-08-26] MEDS: 0.9% Normal Saline 1,000 ML 100 ML IV (00:51)
[2020-08-26 00:57] LABS: Hematocrit 38.5 % (40-54); Hemoglobin 13.2 g/dL (13.0-16.5)
[2020-08-26 01:13] LABS: BNP,B-Type NATRIURETIC PEPTIDE 194.5 pg/mL (0-100)
[2020-08-26 01:29] LABS: Procalcitonin 0.18 ng/mL (0.00-0.09)
[2020-08-26] MEDS: Ferrous Sulfate 325 MG Tablet PO ×3 (01:29→19:55)
[2020-08-26] MEDS: 0.9% Saline Lock 10 ML Syringe IV ×2 (01:42→11:40)
[2020-08-26 02:13] LABS: M R Staph aureus DNA By PCR Negative (Negative); Probe Check PASS; Specimen Processing Control PASS
[2020-08-26 04:01] LABS: Absolute Lymphocyte Count 0.29 X10^3/uL (0.83-4.51); Absolute Neutrophil Count 5.1 X10^3/uL (2.0-7.7); Basophil# 0.01 X10^3/uL; Basophil% 0.2 % (0-1); Hematocrit 39.7 % (40-54); Hemoglobin 13.4 g/dL (13.0-16.5); Lymphocyte # 0.29 X10^3/ul (4.0); Lymphocyte % 5.2 % (19-41); Mean Corp Hgb Conc 33.8 g/dL (32-36); Mean Corpuscular Hgb 29.4 pg (27.0-32.0); Mean Corpuscular Volume 87.1 fL (80-94); Mean Platelet Vol. 9.7 fl (6.2-12.0); Monocyte# 0.17 X10^3/uL; NRBC Flagged by Analyzer 0 % (0-5); Neutrophil % 91.2 % (47-70); POSITIVE DIFFERENTIAL YES; Platelet Count 148 K/mm3 (150-450); RBC Distribution Width CV 14.8 % (11.6-14.6); RBC Distribution Width SD 47.8 fl (35.1-43.9); Red Blood Count 4.56 M/mm3 (4.6-6.2); White Blood Count 5.6 K/mm3 (4.4-11.0)
[2020-08-26 04:02] LABS: Differential Indicated SCAN CRITERIA MET
[2020-08-26 04:17] LABS: AST(SGOT) 33 U/L (15-37); Alanine Aminotransfer ALT/SGPT 34 U/L (16-61); Albumin, Serum 2.9 g/dL (3.2-5.0); Alkaline Phosphatase 45 U/L (45-117); Anion Gap 8 (5-15); BUN 22 mg/dL (7-18); BUN/Creat Ratio 22.1 RATIO (10-20); Calcium,Total 7.9 mg/dL (8.5-10.1); Chloride 101 mmol/L (98-107); EST Glomerular Filtration Rate 76 mL/min (>60); Est Glom Filt Rate - Afr Amer 92 mL/min (>60); Estimated Creatinine Clearance 58.08 ml/min; Globulin 2.9 g/dL (2.2-4.2); Glucose 108 mg/dL (74-106); Potassium 3.9 mmol/L (3.5-5.1); Protein, Total 5.8 g/dL (6.4-8.2); Sodium Level 135 mmol/L (136-145)
--- NOTE | 2020-08-26 04:27 | CPS ---
Increased Airvo settings to maintain proper SpO2
[2020-08-26] MEDS: Pramipexole Di-HCl 1 MG Tablet 1.5 MG PO ×3 (04:40→19:56)
--- NOTE | 2020-08-26 05:44 | PCM.CON.CC ---
Reason for Consult Date of Consultation: 08/26/20 Reason for Consultation: Acute hypoxemic respiratory failure History of Present Illness: The patient is an 84-year-old male, with a history as outlined below, who presented to the emergency department on August 25 with complaints of worsening shortness of breath and nonproductive cough. The patient symptoms initially began 1 week ago and included subjective fevers, myalgias and headache. He was apparently tested for coronavirus this past Sunday and found to be positive. The patient was seen in the emergency department on August 23 and was sent home on Decadron and supplemental oxygen at 3 L/min. However, the patient's hypoxemia progressed. On presentation to the emergency department, the patient was noted to be afebrile and hemodynamically stable. He was, however, tachypneic and hypoxemic. Laboratory evaluation revealed a normal white blood cell count. D-dimer was noted to be 0.50. Chemistry profile was unremarkable. Lactate was within normal limits. Troponin was negative. Chest x-ray revealed patchy airspace disease in the left lower lobe. The patient was eventually started on Airvo heated high flow supplemental oxygen. In addition, the patient received dexamethasone and was started on remdesivir. He was admitted to the medical intensive care unit for further management. This morning, I did personally confirm with the patient at the bedside that he in fact wanted to be DNR CCA without intubation. Past Medical History Past Medical History (Chronic Problems): Chronic Problems (Last Reviewed 01/16/20 @ 13:50 by Mary KING, PA) BPH (benign prostatic hyperplasia) (Chronic) Chronic anemia (Chronic) Anxiety and depression (Chronic) Atherosclerosis of coronary artery of [place] heart without angina pectoris (Chronic) Essential (primary) hypertension (Chronic) Hyperlipidemia (Chronic) Peripheral vascular occlusive disease (Chronic) left lower extremity endovascular intervention with stenting Medical History: Medical History (Last Reviewed 01/16/20 @ 13:50 by Mary KING, PA) Atherosclerosis of coronary artery of [place] heart without angina pectoris (Chronic) I25.10 Essential (primary) hypertension (Chronic) I10 Hyperlipidemia (Chronic) E78.5 Peripheral vascular occlusive disease (Chronic) I73.9 left lower extremity endovascular intervention with stenting Anxiety F41.9 BPH (benign prostatic hyperplasia) N40.0 Diverticulosis K57.90 GERD (gastroesophageal reflux disease) K21.9 GERD (gastroesophageal reflux disease) K21.9 Incontinence R32 Allergies Sulfa (Sulfonamide Antibiotics) Allergy (Verified 08/23/20 10:21) Rash lisinopril Adverse Reaction (Verified 08/23/20 10:21) Other cough Home Medications: Ambulatory Orders Medication Instructions Recorded Citalopram [Celexa] 20 mg PO DAILY 03/17/14 Omeprazole [Prilosec] 20 mg PO DAILY 03/17/14 Multivitamin [Daily Multiple 1 ea PO DAILY 05/16/17 Vitamin] amlodipine 10 mg tablet 10 mg PO DAILY tab 09/04/19 nitroglycerin 0.4 mg sublingual 0.4 mg SUBLINGUAL Q5-15M tab 09/04/19 tablet tamsulosin 0.4 mg capsule 0.4 mg PO DAILY cap 09/04/19 niacin 500 mg capsule,extended 500 mg PO BID 09/16/19 release hydrochlorothiazide 25 mg tablet 25 mg PO DAILY tab 01/16/20 metoprolol succinate 25 mg 25 mg PO DAILY tab 01/16/20 tablet,extended release 24 hr Ascorbic Acid [Vitamin C] 1,000 mg PO DAILY 01/18/20 Aspirin 81 mg PO DAILY 08/23/20 Ferrous Sulfate 325 mg PO BID 08/23/20 Mupirocin [Bactroban] 1 applic TOPICAL TID 08/23/20 Atorvastatin Calcium 10 mg PO DAILY 08/25/20 Clopidogrel Bisulfate [Clopidogrel] 75 mg PO DAILY 08/25/20 Dexamethasone [Decadron] 6 mg PO DAILY 08/25/20 Finasteride 5 mg PO DAILY 08/26/20 Latanoprost/Pf [Latanoprost 0.005% 1 drp EACH EYE QHS 08/26/20 Eye Drop] Ropinirole HCl 4 mg PO TID 08/26/20 Surgical History: Surgical History (Last Reviewed 01/18/20 @ 13:24 by Zahraa Blanchard NP, [employer]PERATOR-C) History of coronary artery stent placement (Resolved) Onset Date: 09/08/19 Z95.5 PCI-JAM mid LAD using a 2.5 x 32 mm Promus Synergy 09/08/2019 History of angioplasty of peripheral vessel Z98.62 left lower extremity endovascular intervention with stenting, History of esophagogastroduodenoscopy (EGD) Z98.890 History of herniorrhaphy Z98.890, Z87.19 Surgical History: - - Bilateral inguinal hernia repair, PCI x1, bilateral lower extremity stenting. Psychiatric History: Anxiety, Depression Lives: Spouse/ Significant Other Smoking Status: Former smoker - Patient quit cigarette tobacco usage and 2000 with prior to this 1 pack/day since he been a teenager. Tobacco Use: Non-smoker Alcohol: Occasional Drugs: None - *Family History Maternal Family History: Family History (Last Reviewed 01/18/20 @ 13:01 by Zahraa Blanchard [employer]UM[employer] OPERATOR, [employer] OPERATOR-C) Father CVA (cerebral vascular accident) Mother CVA (cerebral vascular accident) Hypertension History Items: Stroke Paternal Family History: Family History (Last Reviewed 01/18/20 @ 13:01 by Zahraa Blanchard [employer] OPERATOR, [employer] OPERATOR-C) Father CVA (cerebral vascular accident) Mother CVA (cerebral vascular accident) Hypertension History Items: Hypertension, Stroke Review of Systems Constitutional: Reports: Anorexia, Chills, Fever, Malaise, Fatigue Eyes: Denies: Blurred vision, Double vision HEENT: Denies: Head Aches, Sinus Congestion, Sinus Drainage Cardiovascular: Denies: Chest Pain, Palpitations Respiratory: Reports: Cough, Shortness of Breath Gastrointestinal: Denies: Abdominal Pain, Nausea, Vomiting Genitourinary: Denies: Dysuria Musculoskeletal: Reports: Muscle pain Skin: Denies: Rash, Wounds Neurological: Denies: Numbness, Tingling, Focal weakness Psychiatric: Reports: Anxiety, Depression Hematologic/ Lymphatic: Denies: Easy Bruising, Easy Bleeding Patient Problems: Active and Suspected Problems (Last Reviewed 01/16/20 @ 13:50 by Mary Luis PA, PA) Pneumonia due to COVID-19 virus (Acute) Hypoxia (Acute) Acute respiratory failure with hypoxia (Acute) GI bleed (Acute) Objective: The patient's most recent lab work, culture data and imaging studies have all been personally reviewed. Respiratory viral panel was negative. Strep and urine Legionella antigens were negative. - Physical Exam Vitals/I&O's: Vital Signs Temp Pulse Resp BP Pulse Ox 97.8 F 55 L 22 H 133/52 H 92 08/26/20 04:00 08/26/20 05:00 08/26/20 05:00 08/26/20 05:00 08/26/20 05:00 Oxygen Flow Rate (L/min) 40 Oxygen Delivery Method Airvo Weight: 158 lb 8.198 oz Body Mass Index (BMI) 22.8 Intake and Output for Last 24 Hours 08/24/20 08/25/20 08/26/20 23:59 23:59 23:59 Intake Total 110 / 110 600 / 600 Balance 110 / 110 600 / 600 General: Alert, Cooperative, No apparent distress, - - Heated high flow oxygen cannula in place. HEENT: Atraumatic, PERRLA, Normocephalic Oral: No Gingival or Mucosal Lesions/ Ulcerations Neck: Supple, No Nodes, Trachea Midline Lungs: No rhonchi, No wheeze, No rales, Diminished Cardiovascular: Normal S1, Normal S2, No murmurs, Bradycardic Abdomen: Bowel Sounds Present, Soft, Non Tender Extremities: No clubbing, No cyanosis, No edema Skin: No breakdown Musculoskeletal: No Tenderness to Palpation of Joints or Extremities Lymphatic: No Cervical, Supraclavicular, or Inguinal Adenopathy Neurological: Cranial nerves II-XII grossly intact, Neuro grossly intact Psych/Mental Status: Normal Affect, Appropriate Labs (Last 48 Hours) 08/25/20 08/25/20 08/25/20 18:50 18:50 18:50 WBC 9.1 RBC 4.74 Hgb 14.0 Hct 41.4 MCV 87.3 MCH 29.5 MCHC 33.8 RDW Std Deviation 47.8 H RDW Coeff of Jihan 14.8 H Plt Count 173 MPV 9.7 Immature Gran % (Auto) 0.300 Neut % (Auto) 90.9 H Lymph % (Auto) 4.5 L Gove % (Auto) 4.3 Eos % (Auto) 0.0 Baso % (Auto) 0.0 Absolute Neuts (auto) 8.2 H Absolute Lymphs (auto) 0.41 L Nucleated RBC % 0 Differential Comment SCANNED D-Dimer Quant (PE/DVT) Sodium 133 L Potassium 3.7 Chloride 98 Carbon Dioxide 27.0 Anion Gap 8 BUN 26 H Creatinine 1.17 Estim Creat Clear Calc 50.26 Est GFR (MDRD) Af Amer 77 Est GFR (MDRD) Non-Af 63 BUN/Creatinine Ratio 22.2 H Glucose 95 Lactic Acid 1.0 Calcium 8.3 L Magnesium Ferritin Total Bilirubin 1.00 AST 38 H ALT 39 Alkaline Phosphatase 48 Lactate Dehydrogenase Troponin I < 0.015 C-React Prot Ext Range B-Natriuretic Peptide Total Protein 6.5 Albumin 3.3 Globulin 3.2 Albumin/Globulin Ratio 1.0 Procalcitonin MRSA (PCR) Blood Type Antibody Screen 08/25/20 08/25/20 08/25/20 18:50 18:50 18:50 WBC RBC Hgb Hct MCV MCH MCHC RDW Std Deviation RDW Coeff of Jihan Plt Count MPV Immature Gran % (Auto) Neut % (Auto) Lymph % (Auto) Gove % (Auto) Eos % (Auto) Baso % (Auto) Absolute Neuts (auto) Absolute Lymphs (auto) Nucleated RBC % Differential Comment D-Dimer Quant (PE/DVT) 0.50 H Sodium Potassium Chloride Carbon Dioxide Anion Gap BUN Creatinine Estim Creat Clear Calc Est GFR (MDRD) Af Amer Est GFR (MDRD) Non-Af BUN/Creatinine Ratio Glucose Lactic Acid Calcium Magnesium Ferritin Total Bilirubin AST ALT Alkaline Phosphatase Lactate Dehydrogenase Troponin I C-React Prot Ext Range B-Natriuretic Peptide 156.3 H Total Protein Albumin Globulin Albumin/Globulin Ratio Procalcitonin MRSA (PCR) Blood Type A NEGATIVE Antibody Screen NEGATIVE 08/25/20 08/26/20 08/26/20 18:50 00:45 00:45 WBC RBC Hgb Hct MCV MCH MCHC RDW Std Deviation RDW Coeff of Jihan Plt Count MPV Immature Gran % (Auto) Neut % (Auto) Lymph % (Auto) Gove % (Auto) Eos % (Auto) Baso % (Auto) Absolute Neuts (auto) Absolute Lymphs (auto) Nucleated RBC % Differential Comment D-Dimer Quant (PE/DVT) Sodium Potassium Chloride Carbon Dioxide Anion Gap BUN Creatinine Estim Creat Clear Calc Est GFR (MDRD) Af Amer Est GFR (MDRD) Non-Af BUN/Creatinine Ratio Glucose Lactic Acid Calcium Magnesium 2.0 Ferritin 524 H Total Bilirubin AST ALT Alkaline Phosphatase Lactate Dehydrogenase 313 H Troponin I C-React Prot Ext Range 64.90 H B-Natriuretic Peptide 194.5 H Total Protein Albumin Globulin Albumin/Globulin Ratio Procalcitonin 0.18 H MRSA (PCR) Blood Type Antibody Screen 08/26/20 08/26/20 08/26/20 00:45 00:45 03:50 WBC 5.6 RBC 4.56 L Hgb 13.2 13.4 Hct 38.5 L 39.7 L MCV 87.1 MCH 29.4 MCHC 33.8 RDW Std Deviation 47.8 H RDW Coeff of Jihan 14.8 H Plt Count 148 L MPV 9.7 Immature Gran % (Auto) 0.400 Neut % (Auto) 91.2 H Lymph % (Auto) 5.2 L Gove % (Auto) 3.0 Eos % (Auto) 0.0 Baso % (Auto) 0.2 Absolute Neuts (auto) 5.1 Absolute Lymphs (auto) 0.29 L Nucleated RBC % 0 Differential Comment D-Dimer Quant (PE/DVT) Sodium Potassium Chloride Carbon Dioxide Anion Gap BUN Creatinine Estim Creat Clear Calc Est GFR (MDRD) Af Amer Est GFR (MDRD) Non-Af BUN/Creatinine Ratio Glucose Lactic Acid Calcium Magnesium Ferritin Total Bilirubin AST ALT Alkaline Phosphatase Lactate Dehydrogenase Troponin I C-React Prot Ext Range B-Natriuretic Peptide Total Protein Albumin Globulin Albumin/Globulin Ratio Procalcitonin MRSA (PCR) Negative Blood Type Antibody Screen 08/26/20 03:50 WBC RBC Hgb Hct MCV MCH MCHC RDW Std Deviation RDW Coeff of Jihan Plt Count MPV Immature Gran % (Auto) Neut % (Auto) Lymph % (Auto) Gove % (Auto) Eos % (Auto) Baso % (Auto) Absolute Neuts (auto) Absolute Lymphs (auto) Nucleated RBC % Differential Comment D-Dimer Quant (PE/DVT) Sodium 135 L Potassium 3.9 Chloride 101 Carbon Dioxide 26.0 Anion Gap 8 BUN 22 H Creatinine 1.00 Estim Creat Clear Calc 58.08 Est GFR (MDRD) Af Amer 92 Est GFR (MDRD) Non-Af 76 BUN/Creatinine Ratio 22.1 H Glucose 108 H Lactic Acid Calcium 7.9 L Magnesium Ferritin Total Bilirubin 1.00 AST 33 ALT 34 Alkaline Phosphatase 45 Lactate Dehydrogenase Troponin I C-React Prot Ext Range B-Natriuretic Peptide Total Protein 5.8 L Albumin 2.9 L Globulin 2.9 Albumin/Globulin Ratio 1.0 Procalcitonin MRSA (PCR) Blood Type Antibody Screen Microbiology 08/26/20 01:08 Mucosa - Nasopharyngeal Respiratory Panel (PCR) - Final 08/26/20 02:30 Urine, Clean Catch Streptococcus pneumoniae Antigen (M - Final 08/26/20 02:30 Urine, Clean Catch Legionella Antigen - Final Clinical Impression(s) from Imaging Studies Chest X-Ray 08/25/20 19:05 IMPRESSION: Patchy airspace opacity in the mid to lower lung field which is worse when compared with the prior exam. This is consistent with pneumonia in this COVID positive patient. Electronically Signed: Ben Minaya MD at 19:17 EST Tel , Service support , Current Medications Acetaminophen (Acetaminophen 325 Mg Tablet) 650 mg PO Q6H PRN PRN PRN Reason: Pain Score 1-10/Temp > 100.7 F Al Hydroxide/Mg Hydroxide (Mag Hydrox/Al Hydrox/Simeth 30 Ml Udc) 30 ml PO Q6H PRN PRN PRN Reason: Gastric Burning Albuterol Sulfate (Albuterol Ih 8.5 Gm (Proair) Inhaler (200 Puffs)) 4 - 8 puff INHALATION Q4H PRN PRN PRN Reason: Dyspnea, wheezing Amlodipine Besylate (Amlodipine 10 Mg Tablet) 10 mg PO DAILY [facility] Atorvastatin Calcium (Atorvastatin Calcium 10 Mg Tablet) 10 mg PO DAILY [facility] Citalopram Hydrobromide (Citalopram 20 Mg Tablet) 20 mg PO DAILY [facility] Dexamethasone Sodium Phosphate (Dexamethasone 4 Mg/Ml Vial) 6 mg IV DAILY [facility] Stop: 09/04/20 10:01 Ferrous Sulfate (Ferrous Sulfate 325 Mg Tablet) 325 mg PO BID [facility] Last Admin: 08/26/20 01:29 Dose: 325 mg Documented by: Guaifenesin (Guaifenesin 10 Ml Udc (200mg/10ml)) 10 ml PO Q4H PRN PRN PRN Reason: COUGH Hydralazine HCl (Hydralazine 20 Mg/Ml Vial) 10 mg IV Q4H PRN PRN PRN Reason: SBP > 160 Pantoprazole Sodium 40 mg/ (Sodium Chloride) 110 mls @ 330 mls/hr IV Q12 [facility] Last Infusion: 08/26/20 02:12 Dose: Infused Documented by: Sodium Chloride () 1,000 mls @ 100 mls/hr IV .Q10H [facility] Last Admin: 08/26/20 00:51 Dose: 100 mls/hr Documented by: Remdesivir 100 mg/ Sodium (Chloride) 250 mls @ 125 mls/hr IV Q24H [facility] Stop: 08/29/20 23:59 Sodium Chloride () 250 mls @ 15 mls/hr IV .[id number] PRN PRN Reason: Saline Flush Sodium Chloride () 250 mls @ 15 mls/hr IV .[id number] PRN PRN Reason: Additional IVPB Infusion Melatonin (Melatonin 3 Mg Tablet) 3 mg PO QHS PRN PRN PRN Reason: INSOMNIA Metoprolol Succinate (Metoprolol(Xl)Succ 25 Mg Tablet) 25 mg PO DAILY [facility] Nitroglycerin (Nitroglycerin (Inpatient Use) 0.4 Mg Tab.Subl) 0.4 mg SUBLINGUAL Q5M PRN PRN Reason: CARDIAC/CHEST PAIN Nutritional Formula (Lactose Free) (Ensure Enlive 120 Ml Liquid) 120 ml PO 4X/DAY [facility] Ondansetron HCl (Ondansetron 4 Mg/2 Ml Vial) 4 mg IV Q8H PRN PRN PRN Reason: NAUSEA/VOMITING Pramipexole Dihydrochloride (Pramipexole Di-Hcl 1 Mg Tablet) 1.5 mg PO TID [facility] Last Admin: 08/26/20 04:40 Dose: 1.5 mg Documented by: Prochlorperazine Edisylate (Prochlorperazine 10 Mg/2 Ml Vial) 5 mg IV Q4H PRN PRN PRN Reason: Breakthrough Nausea/Vomiting Sodium Chloride (0.9% Saline Lock 10 Ml Syringe) 10 - 40 ml IV UD PRN PRN Reason: SALINE FLUSH Last Admin: 08/26/20 01:42 Dose: 30 ml Documented by: Tamsulosin HCl (Tamsulosin Hcl 0.4 Mg Capsule) 0.4 mg PO DAILY [facility] Throat Lozenges (Benzocaine/Menthol 1 Lozenge) 1 lozenge MUCOUS MEM Q2H PRN PRN PRN Reason: SORE THROAT Assessment/Plan Active and Suspected Problems (Last Reviewed 01/16/20 @ 13:50 by Mary KING, PA) Pneumonia due to COVID-19 virus (Acute) Hypoxia (Acute) Acute respiratory failure with hypoxia (Acute) GI bleed (Acute) RECOMMENDATIONS: 1. Continue Airvo heated high flow oxygen and wean FiO2 to maintain oxygen saturations at or above 90%. 2. Stop continuous IV fluids. 3. Continue Decadron to complete 10-day treatment course. 4. Continue remdesivir as ordered. Monitor liver and renal function accordingly. 5. Continue twice daily PPI therapy. 6. Given the patient's CODE STATUS, he can be transferred to the coronavirus cohort unit for further management. IMPRESSIONS: 1. Acute hypoxemic respiratory failure secondary to COVID-19 pneumonia Plan to continue current supportive measures including heated high flow oxygen to maintain saturations at or above 90%. If the patient continues to be hypoxemic, BiPAP therapy can be utilized as well. Continue Decadron with plans to complete a 10-day treatment course. Remdesivir will be continued as well. Will monitor liver and renal function accordingly. The patient supplemental IV fluids have been discontinued. Encourage incentive spirometer use and mobilize patient as tolerated. 2. History of coronary artery disease status post PCI Continue baseline outpatient cardiac medications. 3. Advanced age/BPH/hypertension/hyperlipidemia/peripheral vascular disease Complicates care, management, recovery and prognosis. Continue home medications as indicated. CODE STATUS again confirmed to be DNR CCA without intubation. This note was generated with [employer] dictation software. It may contain incorrect words, spelling, and punctuation that were not noted in checking the note before signing. Inpatient E&M: 77685 Init Hosp L3
--- NOTE | 2020-08-26 07:28 | PCM.PN.HOSP ---
Patient Problems: Active and Suspected Problems (Last Reviewed 01/16/20 @ 13:50 by Mary Luis PA, PA) Pneumonia due to COVID-19 virus (Acute) Hypoxia (Acute) Acute respiratory failure with hypoxia (Acute) GI bleed (Acute) Reason for Visit: Acute hypoxic respiratory failure Subjective: Patient is an 84-year-old gentleman with multiple comorbidities admitted with 1 week history of fever chills body aches cough and progressive dyspnea. An assessment of acute hypoxic respiratory failure secondary to COVID-19 pneumonia made admitted to the intensive care unit for further management Objective: GENERAL: cooperative HEENT: Atraumatic; EYES; Anicteric, Normal Conjunctiva NECK; supple, normal thyroid, RESPIRATORY: Diminished to auscultation CARDIOVASCULAR: Regular S1 S2, GI: soft, normoactive bowel sounds, : No Renal angle tenderness; EXTREMITIES: No edema, no clubbing, MUSCULOSKELETAL: no muscle waisting NEURO: Awake; no lateralizing signs. SKIN: No Rash PSYCH; Flat affect Vitals/I&O's: Vital Signs Temp Pulse Resp BP Pulse Ox 98.0 F 52 L 25 H 137/51 H 90 08/26/20 06:00 08/26/20 06:00 08/26/20 06:00 08/26/20 06:00 08/26/20 06:00 Oxygen Flow Rate (L/min) 50 Oxygen Delivery Method Airvo Weight: 71.9 kg Body Mass Index (BMI) 22.8 Intake and Output for Last 24 Hours 08/24/20 08/25/20 08/26/20 23:59 23:59 23:59 Intake Total 110 / 110 600 / 600 Balance 110 / 110 600 / 600 Microbiology Past 72 Hours 08/26/20 01:08 Mucosa - Nasopharyngeal Respiratory Panel (PCR) - Final 08/26/20 02:30 Urine, Clean Catch Streptococcus pneumoniae Antigen (M - Final 08/26/20 02:30 Urine, Clean Catch Legionella Antigen - Final Laboratory Results 08/25/20 18:50: WBC 9.1, RBC 4.74, Hgb 14.0, Hct 41.4, MCV 87.3, MCH 29.5, MCHC 33.8, RDW Std Deviation 47.8 H, RDW Coeff of Jihan 14.8 H, Plt Count 173, MPV 9.7, Immature Gran % (Auto) 0.300, Neut % (Auto) 90.9 H, Lymph % (Auto) 4.5 L, [place] % (Auto) 4.3, Eos % (Auto) 0.0, Baso % (Auto) 0.0, Absolute Neuts (auto) 8.2 H, Absolute Lymphs (auto) 0.41 L, Nucleated RBC % 0, Differential Comment SCANNED 08/25/20 18:50: Sodium 133 L, Potassium 3.7, Chloride 98, Carbon Dioxide 27.0, Anion Gap 8, BUN 26 H, Creatinine 1.17, Estim Creat Clear Calc 50.26, Est GFR (MDRD) Af Amer 77, Est GFR (MDRD) Non-Af 63, BUN/Creatinine Ratio 22.2 H, Glucose 95, Calcium 8.3 L, Total Bilirubin 1.00, AST 38 H, ALT 39, Alkaline Phosphatase 48, Troponin I < 0.015, Total Protein 6.5, Albumin 3.3, Globulin 3.2, Albumin/Globulin Ratio 1.0 08/25/20 18:50: Lactic Acid 1.0 08/25/20 18:50: B-Natriuretic Peptide 156.3 H 08/25/20 18:50: Blood Type A NEGATIVE, Antibody Screen NEGATIVE 08/25/20 18:50: D-Dimer Quant (PE/DVT) 0.50 H 08/25/20 18:50: Magnesium 2.0, Ferritin 524 H, Lactate Dehydrogenase 313 H, C-React Prot Ext Range 64.90 H 08/26/20 00:45: B-Natriuretic Peptide 194.5 H 08/26/20 00:45: Procalcitonin 0.18 H 08/26/20 00:45: Hgb 13.2, Hct 38.5 L 08/26/20 00:45: MRSA (PCR) Negative 08/26/20 03:50: WBC 5.6, RBC 4.56 L, Hgb 13.4, Hct 39.7 L, MCV 87.1, MCH 29.4, MCHC 33.8, RDW Std Deviation 47.8 H, RDW Coeff of Jihan 14.8 H, Plt Count 148 L, MPV 9.7, Immature Gran % (Auto) 0.400, Neut % (Auto) 91.2 H, Lymph % (Auto) 5.2 L, [place] % (Auto) 3.0, Eos % (Auto) 0.0, Baso % (Auto) 0.2, Absolute Neuts (auto) 5.1, Absolute Lymphs (auto) 0.29 L, Nucleated RBC % 0 08/26/20 03:50: Sodium 135 L, Potassium 3.9, Chloride 101, Carbon Dioxide 26.0, Anion Gap 8, BUN 22 H, Creatinine 1.00, Estim Creat Clear Calc 58.08, Est GFR (MDRD) Af Amer 92, Est GFR (MDRD) Non-Af 76, BUN/Creatinine Ratio 22.1 H, Glucose 108 H, Calcium 7.9 L, Total Bilirubin 1.00, AST 33, ALT 34, Alkaline Phosphatase 45, Total Protein 5.8 L, Albumin 2.9 L, Globulin 2.9, Albumin/Globulin Ratio 1.0 Current Medications Acetaminophen (Acetaminophen 325 Mg Tablet) 650 mg PO Q6H PRN PRN PRN Reason: Pain Score 1-10/Temp > 100.7 F Al Hydroxide/Mg Hydroxide (Mag Hydrox/Al Hydrox/Simeth 30 Ml Udc) 30 ml PO Q6H PRN PRN PRN Reason: Gastric Burning Albuterol Sulfate (Albuterol Ih 8.5 Gm (Proair) Inhaler (200 Puffs)) 4 - 8 puff INHALATION Q4H PRN PRN PRN Reason: Dyspnea, wheezing Amlodipine Besylate (Amlodipine 10 Mg Tablet) 10 mg PO DAILY [facility] Atorvastatin Calcium (Atorvastatin Calcium 10 Mg Tablet) 10 mg PO DAILY [facility] Citalopram Hydrobromide (Citalopram 20 Mg Tablet) 20 mg PO DAILY [facility] Dexamethasone Sodium Phosphate (Dexamethasone 4 Mg/Ml Vial) 6 mg IV DAILY [facility] Stop: 09/04/20 10:01 Ferrous Sulfate (Ferrous Sulfate 325 Mg Tablet) 325 mg PO BID [facility] Last Admin: 08/26/20 01:29 Dose: 325 mg Documented by: Guaifenesin (Guaifenesin 10 Ml Udc (200mg/10ml)) 10 ml PO Q4H PRN PRN PRN Reason: COUGH Hydralazine HCl (Hydralazine 20 Mg/Ml Vial) 10 mg IV Q4H PRN PRN PRN Reason: SBP > 160 Pantoprazole Sodium 40 mg/ (Sodium Chloride) 110 mls @ 330 mls/hr IV Q12 [facility] Last Infusion: 08/26/20 02:12 Dose: Infused Documented by: Sodium Chloride () 1,000 mls @ 100 mls/hr IV .Q10H [facility] Last Admin: 08/26/20 00:51 Dose: 100 mls/hr Documented by: Remdesivir 100 mg/ Sodium (Chloride) 250 mls @ 125 mls/hr IV Q24H [facility] Stop: 08/29/20 23:59 Sodium Chloride () 250 mls @ 15 mls/hr IV .[id number] PRN PRN Reason: Saline Flush Sodium Chloride () 250 mls @ 15 mls/hr IV .[id number] PRN PRN Reason: Additional IVPB Infusion Melatonin (Melatonin 3 Mg Tablet) 3 mg PO QHS PRN PRN PRN Reason: INSOMNIA Metoprolol Succinate (Metoprolol(Xl)Succ 25 Mg Tablet) 25 mg PO DAILY [facility] Nitroglycerin (Nitroglycerin (Inpatient Use) 0.4 Mg Tab.Subl) 0.4 mg SUBLINGUAL Q5M PRN PRN Reason: CARDIAC/CHEST PAIN Nutritional Formula (Lactose Free) (Ensure Enlive 120 Ml Liquid) 120 ml PO 4X/DAY [facility] Ondansetron HCl (Ondansetron 4 Mg/2 Ml Vial) 4 mg IV Q8H PRN PRN PRN Reason: NAUSEA/VOMITING Pramipexole Dihydrochloride (Pramipexole Di-Hcl 1 Mg Tablet) 1.5 mg PO TID [facility] Last Admin: 08/26/20 04:40 Dose: 1.5 mg Documented by: Prochlorperazine Edisylate (Prochlorperazine 10 Mg/2 Ml Vial) 5 mg IV Q4H PRN PRN PRN Reason: Breakthrough Nausea/Vomiting Sodium Chloride (0.9% Saline Lock 10 Ml Syringe) 10 - 40 ml IV UD PRN PRN Reason: SALINE FLUSH Last Admin: 08/26/20 01:42 Dose: 30 ml Documented by: Tamsulosin HCl (Tamsulosin Hcl 0.4 Mg Capsule) 0.4 mg PO DAILY [facility] Throat Lozenges (Benzocaine/Menthol 1 Lozenge) 1 lozenge MUCOUS MEM Q2H PRN PRN PRN Reason: SORE THROAT STROKE Vital Signs/Narrative: Vital Signs Temp Pulse Resp BP Pulse Ox 08/26/20 06:00 98.0 F 52 L 25 H 137/51 H 90 08/26/20 05:00 55 L 22 H 133/52 H 92 08/26/20 04:50 62 19 H 94 08/26/20 04:26 62 28 H 93 08/26/20 04:21 62 25 H 90 08/26/20 04:00 97.8 F 64 32 H 142/56 H 91 Medical Necessity - Tobacco Use Smoking Status: Former smoker - Patient quit cigarette tobacco usage and 1999 with prior to this 1 pack/day since he been a teenager. Tobacco Use: Non-smoker Assessment/Plan All Active Problems (Last Reviewed 01/16/20 @ 13:50 by Mary Luis PA, PA) Pneumonia due to COVID-19 virus (Acute) Hypoxia (Acute) Acute respiratory failure with hypoxia (Acute) GI bleed (Acute) Exertional angina (Acute) Dyspnea on exertion (Acute) History of coronary artery stent placement (Resolved 09/08/19) Blood in urine (Resolved) UTI (urinary tract infection) (Resolved) Patient is an 84-year-old gentleman with multiple comorbidities admitted with 1 week history of fever chills body aches cough and progressive dyspnea. An assessment of acute hypoxic respiratory failure secondary to COVID-19 pneumonia made admitted to the intensive care unit for further management 1. Acute hypoxic respiratory failure ?Secondary to acute COVID-19 pneumonia. Admitted to the intensive care unit started on remdesivir and Decadron with consultation placed to both pulmonary medicine as well as infectious disease. Patient was also placed on supplemental oxygen titrated to keep saturation greater than 90 2. Acute COVID-19 pneumonia ?Management as discussed above 3. Dark Stools ?Patient reports not having had a bowel movement for 3 days. Patient was apparently on iron and had reported seeing dark stools but no active bleeding 4. Coronary artery disease ?With PCI of mid LAD lesion on 09/08/2019 5. Peripheral arterial disease ?Status post PCI 6. Hypertension - Blood pressure controlled, home medications continued with dose adjustment as needed 7. Dyslipidemia -Patient is on statin therapy, continued at home dose 8. BPH -Patient is on Flomax and finasteride discontinued 9. Depression with anxiety ?Patient is on Celexa did continue 10. DVT prophylaxis ?Lovenox Inpatient E&M: [id number] [place] [id number]
--- NOTE | 2020-08-26 10:04 | CASEMGMT ---
RN CM Assessment Note Introduced role of CM to patient's via cell phone. is on her way to the hospital (son is driving her) as she also has symptoms. was able to provide a brief history. She also requested CM call [facility] as they were to come to home today to provide more portable tanks as pt's was empty. [employer] called and Essie updated to reschedule visit to home. Demographics, PCP verified. COVID 19 TESTING: On 08/23/20 @ [facility] Presentation: Patient came to ER on 08/23/20 with dyspnea. Tested positive for COVID-19 and was sent home on oxygen thru [facility] [place] Diagnosis: COVID 19 pneumonia PCP: Dr. Avril CONKLIN [facility]: [facility] Prescription Benefit: yes LNOK: Katina Soriano Living Arrangements: Lives independently with at home. states he has not needed assistance @ home and no care needs prior to this illness. Tranportation: drives and drives DME: Oxygen thru [facility] @ [address]. states [employer] rep was to come to home today to look at tanks. call to [facility] to update and will need to have portable tank prior to discharge. No other equipment, no cpap. HHC: none SNF: none Patient DC Goals: Home DC Plan: Anticipate Home. Will need updated oxygen testing prior to discharge. PT/OT evaluations pending. CM available for discharge planning coordination. Contact CM for any concerns/needs that may arise. Reagan HERNANDES RN ACM
[2020-08-26] MEDS: Enoxaparin 30 MG/0.3 ML Syringe SC ×2 (10:26→19:55)
[2020-08-26] MEDS: Acetaminophen 325 MG Tablet 650 MG PO (10:26)
[2020-08-26] MEDS: Pantoprazole Sodium 40 MG Tablet PO ×2 (10:26→19:55)
[2020-08-26] MEDS: Metoprolol(XL)Succ 25 MG Tablet PO (11:39)
[2020-08-26] MEDS: Citalopram 20 MG Tablet PO (11:39)
[2020-08-26] MEDS: amLODIPine 10 MG Tablet PO (11:40)
[2020-08-26] MEDS: Atorvastatin Calcium 10 MG Tablet PO (11:40)
[2020-08-26] MEDS: Tamsulosin HCl 0.4 MG Capsule PO (11:40)
[2020-08-26] MEDS: dexAMETHasone 4 MG/ML Vial 6 MG IV (11:40)
--- NOTE | 2020-08-26 16:13 | PCM.HP.ID ---
Problem List (1) Pneumonia due to COVID-19 virus Status: Acute Reason for Consult: covid Consulted by: Dr. Muse History of Present Illness: The patient is a 84 year old M presented with sx since 08/20 with cough, fatigue, aches, not feeling well. No change in taste or smell. No n/v/d. also sick, going to ED this Am. Admitted yesterdat, covid (+) 08/23, given remdesivir and dex. Feeling a little better today. Full ROS performed and neg except as noted above - Medical History Past Medical History (Chronic Problems): Chronic Problems (Last Reviewed 01/16/20 @ 13:50 by Mary KING, PA) BPH (benign prostatic hyperplasia) (Chronic) Chronic anemia (Chronic) Anxiety and depression (Chronic) Atherosclerosis of coronary artery of [place] heart without angina pectoris (Chronic) Essential (primary) hypertension (Chronic) Hyperlipidemia (Chronic) Peripheral vascular occlusive disease (Chronic) left lower extremity endovascular intervention with stenting Allergies/Adverse Reactions: Allergies Sulfa (Sulfonamide Antibiotics) Allergy (Verified 08/23/20 10:21) Rash lisinopril Adverse Reaction (Verified 08/23/20 10:21) Other cough Home Medications: Ambulatory Orders Medication Instructions Recorded Citalopram [Celexa] 20 mg PO DAILY 03/17/14 Omeprazole [Prilosec] 20 mg PO DAILY 03/17/14 Multivitamin [Daily Multiple 1 ea PO DAILY 05/16/17 Vitamin] amlodipine 10 mg tablet 10 mg PO DAILY tab 09/04/19 nitroglycerin 0.4 mg sublingual 0.4 mg SUBLINGUAL Q5-15M tab 09/04/19 tablet tamsulosin 0.4 mg capsule 0.4 mg PO DAILY cap 09/04/19 niacin 500 mg capsule,extended 500 mg PO BID 09/16/19 release hydrochlorothiazide 25 mg tablet 25 mg PO DAILY tab 01/16/20 metoprolol succinate 25 mg 25 mg PO DAILY tab 01/16/20 tablet,extended release 24 hr Ascorbic Acid [Vitamin C] 1,000 mg PO DAILY 01/18/20 Aspirin 81 mg PO DAILY 08/23/20 Ferrous Sulfate 325 mg PO BID 08/23/20 Mupirocin [Bactroban] 1 applic TOPICAL TID 08/23/20 Atorvastatin Calcium 10 mg PO DAILY 08/25/20 Clopidogrel Bisulfate [Clopidogrel] 75 mg PO DAILY 08/25/20 Dexamethasone [Decadron] 6 mg PO DAILY 08/25/20 Finasteride 5 mg PO DAILY 08/26/20 Latanoprost/Pf [Latanoprost 0.005% 1 drp EACH EYE QHS 08/26/20 Eye Drop] Ropinirole HCl 4 mg PO TID 08/26/20 - Social History SMOKING STATUS:: Former smoker Vital Signs Temp Pulse Resp BP Pulse Ox 97.6 F L 58 L 16 127/61 H 95 08/26/20 13:51 08/26/20 13:51 08/26/20 13:51 08/26/20 13:51 08/26/20 13:51 Oxygen Flow Rate (L/min) 60 Oxygen Delivery Method Airvo Weight: 71.9 kg Body Mass Index (BMI) 22.8 Microbiology Past 72 Hours 08/26/20 01:08 Respiratory Panel (PCR) - Final Mucosa - Nasopharyngeal 08/26/20 02:30 Streptococcus pneumoniae Antigen (M - Final Urine, Clean Catch 08/26/20 02:30 Legionella Antigen - Final Urine, Clean Catch Laboratory Tests Past 24 Hrs 08/25/20 08/25/20 08/25/20 18:50 18:50 18:50 WBC 9.1 RBC 4.74 Hgb 14.0 Hct 41.4 MCV 87.3 MCH 29.5 MCHC 33.8 RDW Std Deviation 47.8 H RDW Coeff of Jihan 14.8 H Plt Count 173 MPV 9.7 Immature Gran % (Auto) 0.300 Neut % (Auto) 90.9 H Lymph % (Auto) 4.5 L [place] % (Auto) 4.3 Eos % (Auto) 0.0 Baso % (Auto) 0.0 Absolute Neuts (auto) 8.2 H Absolute Lymphs (auto) 0.41 L Nucleated RBC % 0 Differential Comment SCANNED D-Dimer Quant (PE/DVT) Sodium 133 L Potassium 3.7 Chloride 98 Carbon Dioxide 27.0 Anion Gap 8 BUN 26 H Creatinine 1.17 Estim Creat Clear Calc 50.26 Est GFR (MDRD) Af Amer 77 Est GFR (MDRD) Non-Af 63 BUN/Creatinine Ratio 22.2 H Glucose 95 Lactic Acid 1.0 Calcium 8.3 L Magnesium Ferritin Total Bilirubin 1.00 AST 38 H ALT 39 Alkaline Phosphatase 48 Lactate Dehydrogenase Troponin I < 0.015 C-React Prot Ext Range B-Natriuretic Peptide Total Protein 6.5 Albumin 3.3 Globulin 3.2 Albumin/Globulin Ratio 1.0 Procalcitonin MRSA (PCR) Blood Type Antibody Screen 08/25/20 08/25/20 08/25/20 18:50 18:50 18:50 WBC RBC Hgb Hct MCV MCH MCHC RDW Std Deviation RDW Coeff of Jihan Plt Count MPV Immature Gran % (Auto) Neut % (Auto) Lymph % (Auto) [place] % (Auto) Eos % (Auto) Baso % (Auto) Absolute Neuts (auto) Absolute Lymphs (auto) Nucleated RBC % Differential Comment D-Dimer Quant (PE/DVT) 0.50 H Sodium Potassium Chloride Carbon Dioxide Anion Gap BUN Creatinine Estim Creat Clear Calc Est GFR (MDRD) Af Amer Est GFR (MDRD) Non-Af BUN/Creatinine Ratio Glucose Lactic Acid Calcium Magnesium Ferritin Total Bilirubin AST ALT Alkaline Phosphatase Lactate Dehydrogenase Troponin I C-React Prot Ext Range B-Natriuretic Peptide 156.3 H Total Protein Albumin Globulin Albumin/Globulin Ratio Procalcitonin MRSA (PCR) Blood Type A NEGATIVE Antibody Screen NEGATIVE 08/25/20 08/26/20 08/26/20 18:50 00:45 00:45 WBC RBC Hgb Hct MCV MCH MCHC RDW Std Deviation RDW Coeff of Jihan Plt Count MPV Immature Gran % (Auto) Neut % (Auto) Lymph % (Auto) [place] % (Auto) Eos % (Auto) Baso % (Auto) Absolute Neuts (auto) Absolute Lymphs (auto) Nucleated RBC % Differential Comment D-Dimer Quant (PE/DVT) Sodium Potassium Chloride Carbon Dioxide Anion Gap BUN Creatinine Estim Creat Clear Calc Est GFR (MDRD) Af Amer Est GFR (MDRD) Non-Af BUN/Creatinine Ratio Glucose Lactic Acid Calcium Magnesium 2.0 Ferritin 524 H Total Bilirubin AST ALT Alkaline Phosphatase Lactate Dehydrogenase 313 H Troponin I C-React Prot Ext Range 64.90 H B-Natriuretic Peptide 194.5 H Total Protein Albumin Globulin Albumin/Globulin Ratio Procalcitonin 0.18 H MRSA (PCR) Blood Type Antibody Screen 08/26/20 08/26/20 08/26/20 00:45 00:45 03:50 WBC 5.6 RBC 4.56 L Hgb 13.2 13.4 Hct 38.5 L 39.7 L MCV 87.1 MCH 29.4 MCHC 33.8 RDW Std Deviation 47.8 H RDW Coeff of Jihan 14.8 H Plt Count 148 L MPV 9.7 Immature Gran % (Auto) 0.400 Neut % (Auto) 91.2 H Lymph % (Auto) 5.2 L [place] % (Auto) 3.0 Eos % (Auto) 0.0 Baso % (Auto) 0.2 Absolute Neuts (auto) 5.1 Absolute Lymphs (auto) 0.29 L Nucleated RBC % 0 Differential Comment D-Dimer Quant (PE/DVT) Sodium Potassium Chloride Carbon Dioxide Anion Gap BUN Creatinine Estim Creat Clear Calc Est GFR (MDRD) Af Amer Est GFR (MDRD) Non-Af BUN/Creatinine Ratio Glucose Lactic Acid Calcium Magnesium Ferritin Total Bilirubin AST ALT Alkaline Phosphatase Lactate Dehydrogenase Troponin I C-React Prot Ext Range B-Natriuretic Peptide Total Protein Albumin Globulin Albumin/Globulin Ratio Procalcitonin MRSA (PCR) Negative Blood Type Antibody Screen 08/26/20 03:50 WBC RBC Hgb Hct MCV MCH MCHC RDW Std Deviation RDW Coeff of Jihan Plt Count MPV Immature Gran % (Auto) Neut % (Auto) Lymph % (Auto) [place] % (Auto) Eos % (Auto) Baso % (Auto) Absolute Neuts (auto) Absolute Lymphs (auto) Nucleated RBC % Differential Comment D-Dimer Quant (PE/DVT) Sodium 135 L Potassium 3.9 Chloride 101 Carbon Dioxide 26.0 Anion Gap 8 BUN 22 H Creatinine 1.00 Estim Creat Clear Calc 58.08 Est GFR (MDRD) Af Amer 92 Est GFR (MDRD) Non-Af 76 BUN/Creatinine Ratio 22.1 H Glucose 108 H Lactic Acid Calcium 7.9 L Magnesium Ferritin Total Bilirubin 1.00 AST 33 ALT 34 Alkaline Phosphatase 45 Lactate Dehydrogenase Troponin I C-React Prot Ext Range B-Natriuretic Peptide Total Protein 5.8 L Albumin 2.9 L Globulin 2.9 Albumin/Globulin Ratio 1.0 Procalcitonin MRSA (PCR) Blood Type Antibody Screen - Other Studies Radiology: [] reviewed Other Studies: [] Route of nutrition/ use of supplements: [] Nutritional Intake: [] IV Site: [] Aguilar Catheter: [] - Physical Exam General: Alert, Cooperative, No apparent distress HEENT: Atraumatic, PERRLA, EOMI Neck: Supple, No Nodes Lungs: Clear to auscultation, Diminished Cardiovascular: Regular rate, Regular Rhythm Abdomen: Soft, Non Tender, Non-Distended Extremities: No edema Skin: No rashes IV Site: Peripheral, without redness Musculoskeletal: No Tenderness to Palpation of Joints or Extremities Neurological: Cranial nerves II-XII grossly intact - Assessment/Plan Antibiotics: [] Assessment/Plan: [] Active and Suspected Problems (Last Reviewed 01/16/20 @ 13:50 by Mary Luis PA, PA) Pneumonia due to COVID-19 virus (Acute) Hypoxia (Acute) Acute respiratory failure with hypoxia (Acute) GI bleed (Acute) covid with hypoxia - sx started around 08/20/20. D-dimer 0.5. On dex, remdesivir. Lovenox 30mg bid ordered. Plan on 20 days of quarantine from 08/20. 10 days of dex total. Order LFT for the AM for monitoring. Will follow, thank you
[2020-08-26] MEDS: MELATONIN 3 MG TABLET PO (22:36)
[2020-08-27] VITALS (29 sets, daily range): BP systolic 115–150; BP diastolic 48–84; PULSE 45–80; RESP 12–48; TEMP 36.7–37.4; O2SAT 86–99
[2020-08-27] MEDS: Pramipexole Di-HCl 1 MG Tablet 1.5 MG PO ×2 (04:58→20:34)
--- NOTE | 2020-08-27 06:23 | PCM.PN.PUL ---
Patient Problems: Active and Suspected Problems (Last Reviewed 01/16/20 @ 13:50 by Mary Luis PA, PA) Pneumonia due to COVID-19 virus (Acute) Hypoxia (Acute) Acute respiratory failure with hypoxia (Acute) GI bleed (Acute) Subjective: The patient was seen and examined at the bedside this morning. Events from the last 24 hours have been reviewed. The patient is currently afebrile, hemodynamically stable and maintaining appropriate oxygen saturations on Airvo he did high flow with an FiO2 requirement of 80%. Renal and liver function are stable. The patient remains on remdesivir and Decadron. He is currently documented to be overall net +1.3 L for the hospital admission. Objective: The patient's most recent lab work, culture data and imaging studies have all been personally reviewed. Respiratory viral panel was negative. Strep and urine Legionella antigens were negative. - Physical Exam Vitals/I&O's: Vital Signs Temp Pulse Resp BP Pulse Ox 98.4 F 59 L 20 H 138/67 H 94 08/27/20 04:47 08/27/20 04:47 08/27/20 04:47 08/27/20 04:47 08/27/20 04:47 Oxygen Flow Rate (L/min) 60 Oxygen Delivery Method Airvo Weight: 157 lb 6.561 oz Body Mass Index (BMI) 22.8 Intake and Output for Last 24 Hours 08/25/20 08/26/20 08/27/20 23:59 23:59 23:59 Intake Total 110 / 110 1956.67 / 1956.67 Output Total 500 / 500 200 / 200 Balance 110 / 110 1456.67 / 1456.67 -200 / -200 General: Alert, Cooperative HEENT: Atraumatic, Normocephalic Oral: Dry Mucosa Neck: Supple, No Nodes, Trachea Midline Lungs: Diminished, Short of Breath, Tachypneic Cardiovascular: Normal S1, Normal S2, Bradycardic Abdomen: Bowel Sounds Present, Soft, Non Tender Extremities: No clubbing, No cyanosis, No edema Skin: No breakdown Musculoskeletal: No Tenderness to Palpation of Joints or Extremities Lymphatic: No Cervical, Supraclavicular, or Inguinal Adenopathy Neurological: Cranial nerves II-XII grossly intact, Neuro grossly intact Psych/Mental Status: Normal Affect, Appropriate Labs (Last 48 Hours) 08/25/20 08/25/20 08/25/20 18:50 18:50 18:50 WBC 9.1 RBC 4.74 Hgb 14.0 Hct 41.4 MCV 87.3 MCH 29.5 MCHC 33.8 RDW Std Deviation 47.8 H RDW Coeff of Jihan 14.8 H Plt Count 173 MPV 9.7 Immature Gran % (Auto) 0.300 Neut % (Auto) 90.9 H Lymph % (Auto) 4.5 L [place] % (Auto) 4.3 Eos % (Auto) 0.0 Baso % (Auto) 0.0 Absolute Neuts (auto) 8.2 H Absolute Lymphs (auto) 0.41 L Nucleated RBC % 0 Differential Comment SCANNED D-Dimer Quant (PE/DVT) Sodium 133 L Potassium 3.7 Chloride 98 Carbon Dioxide 27.0 Anion Gap 8 BUN 26 H Creatinine 1.17 Estim Creat Clear Calc 50.26 Est GFR (MDRD) Af Amer 77 Est GFR (MDRD) Non-Af 63 BUN/Creatinine Ratio 22.2 H Glucose 95 Lactic Acid 1.0 Calcium 8.3 L Magnesium Ferritin Total Bilirubin 1.00 AST 38 H ALT 39 Alkaline Phosphatase 48 Lactate Dehydrogenase Troponin I < 0.015 C-React Prot Ext Range B-Natriuretic Peptide Total Protein 6.5 Albumin 3.3 Globulin 3.2 Albumin/Globulin Ratio 1.0 Procalcitonin MRSA (PCR) Blood Type Antibody Screen 08/25/20 08/25/20 08/25/20 18:50 18:50 18:50 WBC RBC Hgb Hct MCV MCH MCHC RDW Std Deviation RDW Coeff of Jihan Plt Count MPV Immature Gran % (Auto) Neut % (Auto) Lymph % (Auto) [place] % (Auto) Eos % (Auto) Baso % (Auto) Absolute Neuts (auto) Absolute Lymphs (auto) Nucleated RBC % Differential Comment D-Dimer Quant (PE/DVT) 0.50 H Sodium Potassium Chloride Carbon Dioxide Anion Gap BUN Creatinine Estim Creat Clear Calc Est GFR (MDRD) Af Amer Est GFR (MDRD) Non-Af BUN/Creatinine Ratio Glucose Lactic Acid Calcium Magnesium Ferritin Total Bilirubin AST ALT Alkaline Phosphatase Lactate Dehydrogenase Troponin I C-React Prot Ext Range B-Natriuretic Peptide 156.3 H Total Protein Albumin Globulin Albumin/Globulin Ratio Procalcitonin MRSA (PCR) Blood Type A NEGATIVE Antibody Screen NEGATIVE 08/25/20 08/26/20 08/26/20 18:50 00:45 00:45 WBC RBC Hgb Hct MCV MCH MCHC RDW Std Deviation RDW Coeff of Jihan Plt Count MPV Immature Gran % (Auto) Neut % (Auto) Lymph % (Auto) [place] % (Auto) Eos % (Auto) Baso % (Auto) Absolute Neuts (auto) Absolute Lymphs (auto) Nucleated RBC % Differential Comment D-Dimer Quant (PE/DVT) Sodium Potassium Chloride Carbon Dioxide Anion Gap BUN Creatinine Estim Creat Clear Calc Est GFR (MDRD) Af Amer Est GFR (MDRD) Non-Af BUN/Creatinine Ratio Glucose Lactic Acid Calcium Magnesium 2.0 Ferritin 524 H Total Bilirubin AST ALT Alkaline Phosphatase Lactate Dehydrogenase 313 H Troponin I C-React Prot Ext Range 64.90 H B-Natriuretic Peptide 194.5 H Total Protein Albumin Globulin Albumin/Globulin Ratio Procalcitonin 0.18 H MRSA (PCR) Blood Type Antibody Screen 08/26/20 08/26/20 08/26/20 00:45 00:45 03:50 WBC 5.6 RBC 4.56 L Hgb 13.2 13.4 Hct 38.5 L 39.7 L MCV 87.1 MCH 29.4 MCHC 33.8 RDW Std Deviation 47.8 H RDW Coeff of Jihan 14.8 H Plt Count 148 L MPV 9.7 Immature Gran % (Auto) 0.400 Neut % (Auto) 91.2 H Lymph % (Auto) 5.2 L [place] % (Auto) 3.0 Eos % (Auto) 0.0 Baso % (Auto) 0.2 Absolute Neuts (auto) 5.1 Absolute Lymphs (auto) 0.29 L Nucleated RBC % 0 Differential Comment D-Dimer Quant (PE/DVT) Sodium Potassium Chloride Carbon Dioxide Anion Gap BUN Creatinine Estim Creat Clear Calc Est GFR (MDRD) Af Amer Est GFR (MDRD) Non-Af BUN/Creatinine Ratio Glucose Lactic Acid Calcium Magnesium Ferritin Total Bilirubin AST ALT Alkaline Phosphatase Lactate Dehydrogenase Troponin I C-React Prot Ext Range B-Natriuretic Peptide Total Protein Albumin Globulin Albumin/Globulin Ratio Procalcitonin MRSA (PCR) Negative Blood Type Antibody Screen 08/26/20 03:50 WBC RBC Hgb Hct MCV MCH MCHC RDW Std Deviation RDW Coeff of Jihan Plt Count MPV Immature Gran % (Auto) Neut % (Auto) Lymph % (Auto) [place] % (Auto) Eos % (Auto) Baso % (Auto) Absolute Neuts (auto) Absolute Lymphs (auto) Nucleated RBC % Differential Comment D-Dimer Quant (PE/DVT) Sodium 135 L Potassium 3.9 Chloride 101 Carbon Dioxide 26.0 Anion Gap 8 BUN 22 H Creatinine 1.00 Estim Creat Clear Calc 58.08 Est GFR (MDRD) Af Amer 92 Est GFR (MDRD) Non-Af 76 BUN/Creatinine Ratio 22.1 H Glucose 108 H Lactic Acid Calcium 7.9 L Magnesium Ferritin Total Bilirubin 1.00 AST 33 ALT 34 Alkaline Phosphatase 45 Lactate Dehydrogenase Troponin I C-React Prot Ext Range B-Natriuretic Peptide Total Protein 5.8 L Albumin 2.9 L Globulin 2.9 Albumin/Globulin Ratio 1.0 Procalcitonin MRSA (PCR) Blood Type Antibody Screen Microbiology 08/26/20 01:08 Mucosa - Nasopharyngeal Respiratory Panel (PCR) - Final 08/26/20 02:30 Urine, Clean Catch Streptococcus pneumoniae Antigen (M - Final 08/26/20 02:30 Urine, Clean Catch Legionella Antigen - Final Clinical Impression(s) from Imaging Studies Chest X-Ray 08/25/20 19:05 IMPRESSION: Patchy airspace opacity in the mid to lower lung field which is worse when compared with the prior exam. This is consistent with pneumonia in this COVID positive patient. Electronically Signed: Ben Minaya MD at 19:17 EST Tel , Service support , Current Medications Acetaminophen (Acetaminophen 325 Mg Tablet) 650 mg PO Q6H PRN PRN PRN Reason: Pain Score 1-10/Temp > 100.7 F Last Admin: 08/26/20 10:26 Dose: 650 mg Documented by: Al Hydroxide/Mg Hydroxide (Mag Hydrox/Al Hydrox/Simeth 30 Ml Udc) 30 ml PO Q6H PRN PRN PRN Reason: Gastric Burning Albuterol Sulfate (Albuterol Ih 8.5 Gm (Proair) Inhaler (200 Puffs)) 4 - 8 puff INHALATION Q4H PRN PRN PRN Reason: Dyspnea, wheezing Amlodipine Besylate (Amlodipine 10 Mg Tablet) 10 mg PO DAILY [facility] Last Admin: 08/26/20 11:40 Dose: 10 mg Documented by: Atorvastatin Calcium (Atorvastatin Calcium 10 Mg Tablet) 10 mg PO DAILY [facility] Last Admin: 08/26/20 11:40 Dose: 10 mg Documented by: Citalopram Hydrobromide (Citalopram 20 Mg Tablet) 20 mg PO DAILY [facility] Last Admin: 08/26/20 11:39 Dose: 20 mg Documented by: Dexamethasone Sodium Phosphate (Dexamethasone 4 Mg/Ml Vial) 6 mg IV DAILY [facility] Stop: 09/04/20 10:01 Last Admin: 08/26/20 11:40 Dose: 6 mg Documented by: Enoxaparin Sodium (Enoxaparin 30 Mg/0.3 Ml Syringe) 30 mg SC BID [facility] Last Admin: 08/26/20 19:55 Dose: 30 mg Documented by: Ferrous Sulfate (Ferrous Sulfate 325 Mg Tablet) 325 mg PO BID [facility] Last Admin: 08/26/20 19:55 Dose: 325 mg Documented by: Guaifenesin (Guaifenesin 10 Ml Udc (200mg/10ml)) 10 ml PO Q4H PRN PRN PRN Reason: COUGH Hydralazine HCl (Hydralazine 20 Mg/Ml Vial) 10 mg IV Q4H PRN PRN PRN Reason: SBP > 160 Remdesivir 100 mg/ Sodium (Chloride) 250 mls @ 125 mls/hr IV Q24H [facility] Stop: 08/29/20 23:59 Last Infusion: 08/26/20 23:45 Dose: Infused Documented by: Sodium Chloride () 250 mls @ 15 mls/hr IV .[id number] PRN PRN Reason: Saline Flush Sodium Chloride () 250 mls @ 15 mls/hr IV .[id number] PRN PRN Reason: Additional IVPB Infusion Melatonin (Melatonin 3 Mg Tablet) 3 mg PO QHS [facility] Last Admin: 08/26/20 22:36 Dose: 3 mg Documented by: Metoprolol Succinate (Metoprolol(Xl)Succ 25 Mg Tablet) 25 mg PO DAILY [facility] Last Admin: 08/26/20 11:39 Dose: 25 mg Documented by: Nitroglycerin (Nitroglycerin (Inpatient Use) 0.4 Mg Tab.Subl) 0.4 mg SUBLINGUAL Q5M PRN PRN Reason: CARDIAC/CHEST PAIN Ondansetron HCl (Ondansetron 4 Mg/2 Ml Vial) 4 mg IV Q8H PRN PRN PRN Reason: NAUSEA/VOMITING Pantoprazole Sodium (Pantoprazole Sodium 40 Mg Tablet) 40 mg PO BID [facility] Last Admin: 08/26/20 19:55 Dose: 40 mg Documented by: Pramipexole Dihydrochloride (Pramipexole Di-Hcl 1 Mg Tablet) 1.5 mg PO TID [facility] Last Admin: 08/27/20 04:58 Dose: 1.5 mg Documented by: Prochlorperazine Edisylate (Prochlorperazine 10 Mg/2 Ml Vial) 5 mg IV Q4H PRN PRN PRN Reason: Breakthrough Nausea/Vomiting Sodium Chloride (0.9% Saline Lock 10 Ml Syringe) 10 - 40 ml IV UD PRN PRN Reason: SALINE FLUSH Last Admin: 08/26/20 11:40 Dose: 10 ml Documented by: Tamsulosin HCl (Tamsulosin Hcl 0.4 Mg Capsule) 0.4 mg PO DAILY [facility] Last Admin: 08/26/20 11:40 Dose: 0.4 mg Documented by: Throat Lozenges (Benzocaine/Menthol 1 Lozenge) 1 lozenge MUCOUS MEM Q2H PRN PRN PRN Reason: SORE THROAT Medical Necessity - Tobacco Use Smoking Status: Former smoker - Patient quit cigarette tobacco usage and 2000 with prior to this 1 pack/day since he been a teenager. Tobacco Use: Non-smoker Assessment/Plan All Active Problems (Last Reviewed 01/16/20 @ 13:50 by Mary Luis PA, PA) Pneumonia due to COVID-19 virus (Acute) Hypoxia (Acute) Acute respiratory failure with hypoxia (Acute) GI bleed (Acute) Exertional angina (Acute) Dyspnea on exertion (Acute) History of coronary artery stent placement (Resolved 09/08/19) Blood in urine (Resolved) UTI (urinary tract infection) (Resolved) RECOMMENDATIONS: 1. Continue Airvo heated high flow oxygen and wean FiO2 to maintain oxygen saturations at or above 90%. 2. Okay to transition to BiPAP if needed. 3. Start scheduled IV diuretics today. 4. Continue Decadron to complete 10-day treatment course. 5. Continue remdesivir as ordered. Monitor liver and renal function accordingly. 6. Continue twice daily PPI therapy. IMPRESSIONS: 1. Acute hypoxemic respiratory failure secondary to COVID-19 pneumonia Plan to continue current supportive measures including heated high flow oxygen to maintain saturations at or above 90%. If the patient continues to be hypoxemic, BiPAP therapy can be utilized as well. Continue Decadron with plans to complete a 10-day treatment course. Remdesivir will be continued as well. Will monitor liver and renal function accordingly. Encourage incentive spirometer use and mobilize patient as tolerated. IV Lasix will be started today as well. 2. History of coronary artery disease status post PCI Continue baseline outpatient cardiac medications. 3. Advanced age/BPH/hypertension/hyperlipidemia/peripheral vascular disease Complicates care, management, recovery and prognosis. Continue home medications as indicated. CODE STATUS again confirmed to be DNR CCA without intubation. This note was generated with [employer] dictation software. It may contain incorrect words, spelling, and punctuation that were not noted in checking the note before signing. Inpatient E&M: [id number] [facility] L3
[2020-08-27] MEDS: Acetaminophen 325 MG Tablet 650 MG PO (07:04)
[2020-08-27 07:14] LABS: Hemoglobin 13.8 g/dL (13.0-16.5); Mean Corp Hgb Conc 33.7 g/dL (32-36); Mean Corpuscular Hgb 29.1 pg (27.0-32.0); Mean Corpuscular Volume 86.3 fL (80-94); Mean Platelet Vol. 9.9 fl (6.2-12.0); Platelet Count 169 K/mm3 (150-450); RBC Distribution Width CV 14.6 % (11.6-14.6); RBC Distribution Width SD 46.7 fl (35.1-43.9); Red Blood Count 4.75 M/mm3 (4.6-6.2); White Blood Count 9.4 K/mm3 (4.4-11.0)
--- NOTE | 2020-08-27 07:27 | PN_ITS ---
Patient Problems: Active and Suspected Problems (Last Reviewed 01/16/20 @ 13:50 by Mary Luis PA, PA) Pneumonia due to COVID-19 virus (Acute) Hypoxia (Acute) Acute respiratory failure with hypoxia (Acute) GI bleed (Acute) Reason for Visit: Acute hypoxic respiratory failure Subjective: Patient is an 84-year-old gentleman with multiple comorbidities admitted with 1 week history of fever chills body aches cough and progressive dyspnea. An assessment of acute hypoxic respiratory failure secondary to COVID-19 pneumonia made admitted to the intensive care unit for further management Patient was transferred to the [facility] unit patient however still requires high flow oxygen currently on airvo Objective: GENERAL: cooperative dyspneic at rest HEENT: Atraumatic; EYES; Anicteric, Normal Conjunctiva NECK; supple, normal thyroid, RESPIRATORY: Diminished to auscultation CARDIOVASCULAR: Regular S1 S2, GI: soft, normoactive bowel sounds, : No Renal angle tenderness; EXTREMITIES: No edema, no clubbing, MUSCULOSKELETAL: no muscle waisting NEURO: Awake; no lateralizing signs. SKIN: No Rash PSYCH; Flat affect Vitals/I&O's: Vital Signs Temp Pulse Resp BP Pulse Ox 98.4 F 60 24 H 138/67 H 89 08/27/20 04:47 08/27/20 07:00 08/27/20 07:00 08/27/20 04:47 08/27/20 07:00 Oxygen Flow Rate (L/min) 60 Oxygen Delivery Method Airvo Weight: 71.4 kg Body Mass Index (BMI) 22.8 Intake and Output for Last 24 Hours 08/25/20 08/26/20 08/27/20 23:59 23:59 23:59 Intake Total 110 / 110 1956.67 / 1956.67 200 / 200 Output Total 500 / 500 200 / 200 Balance 110 / 110 1456.67 / 1456.67 0 / 0 Microbiology Past 72 Hours 08/26/20 01:08 Mucosa - Nasopharyngeal Respiratory Panel (PCR) - Final 08/26/20 02:30 Urine, Clean Catch Streptococcus pneumoniae Antigen (M - Final 08/26/20 02:30 Urine, Clean Catch Legionella Antigen - Final Laboratory Results 08/27/20 06:45: WBC 9.4, RBC 4.75, Hgb 13.8, Hct 41.0, MCV 86.3, MCH 29.1, MCHC 33.7, RDW Std Deviation 46.7 H, RDW Coeff of Jihan 14.6, Plt Count 169, MPV 9.9 08/27/20 06:45: D-Dimer Quant (PE/DVT) Pending 08/27/20 06:45: Sodium Pending, Potassium Pending, Chloride Pending, Carbon Dioxide Pending, Anion Gap Pending, BUN Pending, Creatinine Pending, Est GFR (MDRD) Af Amer Pending, Est GFR (MDRD) Non-Af Pending, BUN/Creatinine Ratio Pending, Glucose Pending, Calcium Pending, Magnesium Pending, Total Bilirubin Pending, Direct Bilirubin Pending, AST Pending, ALT Pending, Alkaline Phosphatase Pending, Total Protein Pending, Albumin Pending Current Medications Acetaminophen (Acetaminophen 325 Mg Tablet) 650 mg PO Q6H PRN PRN PRN Reason: Pain Score 1-10/Temp > 100.7 F Last Admin: 08/27/20 07:04 Dose: 650 mg Documented by: Al Hydroxide/Mg Hydroxide (Mag Hydrox/Al Hydrox/Simeth 30 Ml Udc) 30 ml PO Q6H PRN PRN PRN Reason: Gastric Burning Albuterol Sulfate (Albuterol Ih 8.5 Gm (Proair) Inhaler (200 Puffs)) 4 - 8 puff INHALATION Q4H PRN PRN PRN Reason: Dyspnea, wheezing Amlodipine Besylate (Amlodipine 10 Mg Tablet) 10 mg PO DAILY [facility] Last Admin: 08/26/20 11:40 Dose: 10 mg Documented by: Atorvastatin Calcium (Atorvastatin Calcium 10 Mg Tablet) 10 mg PO DAILY [facility] Last Admin: 08/26/20 11:40 Dose: 10 mg Documented by: Citalopram Hydrobromide (Citalopram 20 Mg Tablet) 20 mg PO DAILY [facility] Last Admin: 08/26/20 11:39 Dose: 20 mg Documented by: Dexamethasone Sodium Phosphate (Dexamethasone 4 Mg/Ml Vial) 6 mg IV DAILY [facility] Stop: 09/04/20 10:01 Last Admin: 08/26/20 11:40 Dose: 6 mg Documented by: Enoxaparin Sodium (Enoxaparin 30 Mg/0.3 Ml Syringe) 30 mg SC BID [facility] Last Admin: 08/26/20 19:55 Dose: 30 mg Documented by: Ferrous Sulfate (Ferrous Sulfate 325 Mg Tablet) 325 mg PO BID [facility] Last Admin: 08/26/20 19:55 Dose: 325 mg Documented by: Guaifenesin (Guaifenesin 10 Ml Udc (200mg/10ml)) 10 ml PO Q4H PRN PRN PRN Reason: COUGH Hydralazine HCl (Hydralazine 20 Mg/Ml Vial) 10 mg IV Q4H PRN PRN PRN Reason: SBP > 160 Remdesivir 100 mg/ Sodium (Chloride) 250 mls @ 125 mls/hr IV Q24H [facility] Stop: 08/29/20 23:59 Last Infusion: 08/26/20 23:45 Dose: Infused Documented by: Sodium Chloride () 250 mls @ 15 mls/hr IV .[id number] PRN PRN Reason: Saline Flush Sodium Chloride () 250 mls @ 15 mls/hr IV .[id number] PRN PRN Reason: Additional IVPB Infusion Melatonin (Melatonin 3 Mg Tablet) 3 mg PO QHS [facility] Last Admin: 08/26/20 22:36 Dose: 3 mg Documented by: Metoprolol Succinate (Metoprolol(Xl)Succ 25 Mg Tablet) 25 mg PO DAILY [facility] Last Admin: 08/26/20 11:39 Dose: 25 mg Documented by: Nitroglycerin (Nitroglycerin (Inpatient Use) 0.4 Mg Tab.Subl) 0.4 mg SUBLINGUAL Q5M PRN PRN Reason: CARDIAC/CHEST PAIN Ondansetron HCl (Ondansetron 4 Mg/2 Ml Vial) 4 mg IV Q8H PRN PRN PRN Reason: NAUSEA/VOMITING Pantoprazole Sodium (Pantoprazole Sodium 40 Mg Tablet) 40 mg PO BID [facility] Last Admin: 08/26/20 19:55 Dose: 40 mg Documented by: Pramipexole Dihydrochloride (Pramipexole Di-Hcl 1 Mg Tablet) 1.5 mg PO TID [facility] Last Admin: 08/27/20 04:58 Dose: 1.5 mg Documented by: Prochlorperazine Edisylate (Prochlorperazine 10 Mg/2 Ml Vial) 5 mg IV Q4H PRN PRN PRN Reason: Breakthrough Nausea/Vomiting Sodium Chloride (0.9% Saline Lock 10 Ml Syringe) 10 - 40 ml IV UD PRN PRN Reason: SALINE FLUSH Last Admin: 08/26/20 11:40 Dose: 10 ml Documented by: Tamsulosin HCl (Tamsulosin Hcl 0.4 Mg Capsule) 0.4 mg PO DAILY [facility] Last Admin: 08/26/20 11:40 Dose: 0.4 mg Documented by: Throat Lozenges (Benzocaine/Menthol 1 Lozenge) 1 lozenge MUCOUS MEM Q2H PRN PRN PRN Reason: SORE THROAT STROKE Vital Signs/Narrative: Vital Signs Temp Pulse Resp BP Pulse Ox 08/27/20 07:00 60 24 H 89 08/27/20 04:47 98.4 F 59 L 20 H 138/67 H 94 08/27/20 04:00 50 L 24 H 90 Medical Necessity - Tobacco Use Smoking Status: Former smoker - Patient quit cigarette tobacco usage and 2000 with prior to this 1 pack/day since he been a teenager. Tobacco Use: Non-smoker Assessment/Plan All Active Problems (Last Reviewed 01/16/20 @ 13:50 by Mary Luis PA, PA) Pneumonia due to COVID-19 virus (Acute) Hypoxia (Acute) Acute respiratory failure with hypoxia (Acute) GI bleed (Acute) Exertional angina (Acute) Dyspnea on exertion (Acute) History of coronary artery stent placement (Resolved 09/08/19) Blood in urine (Resolved) UTI (urinary tract infection) (Resolved) Patient is an 84-year-old gentleman with multiple comorbidities admitted with 1 week history of fever chills body aches cough and progressive dyspnea. An assessment of acute hypoxic respiratory failure secondary to COVID-19 pneumonia made admitted to the intensive care unit for further management 1. Acute hypoxic respiratory failure ?Secondary to acute COVID-19 pneumonia. Admitted to the intensive care unit started on remdesivir and Decadron with consultation placed to both pulmonary medicine as well as infectious disease. Patient was also placed on supplemental oxygen titrated to keep saturation greater than 90 -08/27/2019 patient was transferred to the [facility] cohort unit patient however still requires high flow oxygen currently on airvo 2. Acute COVID-19 pneumonia ?Management as discussed above 3. Dark Stools ?Patient reports not having had a bowel movement for 3 days. Patient was apparently on iron and had reported seeing dark stools but no active bleeding 4. Coronary artery disease ?With PCI of mid LAD lesion on 09/08/2019 5. Peripheral arterial disease ?Status post PCI 6. Hypertension - Blood pressure controlled, home medications continued with dose adjustment as needed 7. Dyslipidemia -Patient is on statin therapy, continued at home dose 8. BPH -Patient is on Flomax and finasteride discontinued 9. Depression with anxiety ?Patient is on Celexa did continue 10. DVT prophylaxis ?Lovenox Inpatient E&M: [id number] [facility] Hosp L3
[2020-08-27 07:55] LABS: AST(SGOT) 30 U/L (15-37); Alanine Aminotransfer ALT/SGPT 30 U/L (16-61); Albumin, Serum 2.7 g/dL (3.2-5.0); Alkaline Phosphatase 42 U/L (45-117); Anion Gap 7 (5-15); BUN 20 mg/dL (7-18); BUN/Creat Ratio 26.5 RATIO (10-20); Bilirubin, Direct 0.19 mg/dL (0.00-0.30); Calcium,Total 8.2 mg/dL (8.5-10.1); Chloride 107 mmol/L (98-107); Creatinine, Serum 0.76 mg/dL (0.70-1.30); EST Glomerular Filtration Rate 105 mL/min (>60); Est Glom Filt Rate - Afr Amer 127 mL/min (>60); Estimated Creatinine Clearance 57.52 ml/min; Globulin 2.8 g/dL (2.2-4.2); Glucose 107 mg/dL (74-106); Magnesium 2.1 mg/dL (1.6-2.6); Potassium 4.1 mmol/L (3.5-5.1); Protein, Total 5.5 g/dL (6.4-8.2); Sodium Level 137 mmol/L (136-145)
[2020-08-27] MEDS: Ferrous Sulfate 325 MG Tablet PO ×2 (08:25→20:34)
[2020-08-27] MEDS: Atorvastatin Calcium 10 MG Tablet PO (08:26)
[2020-08-27] MEDS: Tamsulosin HCl 0.4 MG Capsule PO (08:26)
[2020-08-27] MEDS: Citalopram 20 MG Tablet PO (08:27)
[2020-08-27] MEDS: Pantoprazole Sodium 40 MG Tablet PO ×2 (08:27→20:35)
[2020-08-27] MEDS: amLODIPine 10 MG Tablet PO (08:27)
[2020-08-27] MEDS: Enoxaparin 30 MG/0.3 ML Syringe SC ×2 (08:28→20:34)
[2020-08-27] MEDS: dexAMETHasone 4 MG/ML Vial 6 MG IV (08:28)
[2020-08-27] MEDS: Furosemide 40 MG/4 ML Vial IV ×2 (12:06→17:39)
--- NOTE | 2020-08-27 15:11 | CASEMGMT ---
Social Work SW spoke with Dr. Mitchell and Dr. Faith who state pt has expressed to them a desire for DNRCCA, no intubation. Physicians requesting SW assist pt with completing DNR documents. SW entered pt room. Pt Katina and ZACKARY Mcqueen present for entirety of conversation. Pt was sitting up in bed with bipap on. SW asked several general questions and pt was able to respond clearly and accurately without distress. Pt is A&O x3. SW assisted pt in completing MOLST form. SW reviewed DNR/Full code options, comfort care/selective care (includes IV ATB and Fluids, but no intubation)/Full Treatment (intubation, mechanical ventilation) and Artificial administration of nutrition. Pt and pt acknowledge understanding of each option. Pt sat quietly by pt side and allowed pt to make decisions regarding his end of life care. At the end of conversation pt acknowledged that all of these decisions were up to the patient. Pt and agree that they have discussed end of life issues in the past and this decision is what they had settled on at that time. Pt and state that both have completed a living will and SW informed that documents are not on file at [facility]. At this time patient choosing DNR, Selective treatment (no intubation), and a trial period of artificial nutrition if needed. MOLST form completed, reviewed again with pt and and pt signed form. Physician updated on conversation and signed MOLST form and placed on pt chart. LYNDON Parish
--- NOTE | 2020-08-27 15:43 | PN.ID_ITS ---
Patient Problems: Active and Suspected Problems (Last Reviewed 01/16/20 @ 13:50 by Mary Luis PA, PA) Pneumonia due to COVID-19 virus (Acute) Hypoxia (Acute) Acute respiratory failure with hypoxia (Acute) GI bleed (Acute) Subjective: Feeling ok, breathing better, no fever - Physical Exam Vitals/I&O's: Vital Signs Temp Pulse Resp BP Pulse Ox 98.0 F 56 L 28 H 134/72 H 95 08/27/20 14:00 08/27/20 14:00 08/27/20 14:00 08/27/20 14:00 08/27/20 14:00 Oxygen Flow Rate (L/min) 60 Oxygen Delivery Method Bi-pap Weight: 71.4 kg Body Mass Index (BMI) 22.8 Intake and Output for Last 24 Hours 08/25/20 08/26/20 08/27/20 23:59 23:59 23:59 Intake Total 110 / 110 1956.67 / 1956.67 200 / 200 Output Total 500 / 500 1050 / 1050 Balance 110 / 110 1456.67 / 1456.67 -850 / -850 General: Alert, Cooperative, No apparent distress Lungs: Diminished Cardiovascular: Regular rate, Regular Rhythm Abdomen: Soft, Non Tender, Non-Distended Skin: No rashes Microbiology Past 72 Hours 08/26/20 01:08 Mucosa - Nasopharyngeal Respiratory Panel (PCR) - Final 08/26/20 02:30 Urine, Clean Catch Streptococcus pneumoniae Antigen (M - Final 08/26/20 02:30 Urine, Clean Catch Legionella Antigen - Final Laboratory Results 08/27/20 06:45: WBC 9.4, RBC 4.75, Hgb 13.8, Hct 41.0, MCV 86.3, MCH 29.1, MCHC 33.7, RDW Std Deviation 46.7 H, RDW Coeff of Jihan 14.6, Plt Count 169, MPV 9.9 08/27/20 06:45: D-Dimer Quant (PE/DVT) 0.50 H 08/27/20 06:45: Sodium 137, Potassium 4.1, Chloride 107, Carbon Dioxide 23.0, Anion Gap 7, BUN 20 H, Creatinine 0.76, Estim Creat Clear Calc 57.52, Est GFR (MDRD) Af Amer 127, Est GFR (MDRD) Non-Af 105, BUN/Creatinine Ratio 26.5 H, Glucose 107 H, Calcium 8.2 L, Magnesium 2.1, Total Bilirubin 0.80, Direct Bilirubin 0.19, AST 30, ALT 30, Alkaline Phosphatase 42 L, Total Protein 5.5 L, Albumin 2.7 L, Globulin 2.8 Current Medications Acetaminophen (Acetaminophen 325 Mg Tablet) 650 mg PO Q6H PRN PRN PRN Reason: Pain Score 1-10/Temp > 100.7 F Last Admin: 08/27/20 07:04 Dose: 650 mg Documented by: Al Hydroxide/Mg Hydroxide (Mag Hydrox/Al Hydrox/Simeth 30 Ml Udc) 30 ml PO Q6H PRN PRN PRN Reason: Gastric Burning Albuterol Sulfate (Albuterol Ih 8.5 Gm (Proair) Inhaler (200 Puffs)) 4 - 8 puff INHALATION Q4H PRN PRN PRN Reason: Dyspnea, wheezing Amlodipine Besylate (Amlodipine 10 Mg Tablet) 10 mg PO DAILY [facility] Last Admin: 08/27/20 08:27 Dose: 10 mg Documented by: Atorvastatin Calcium (Atorvastatin Calcium 10 Mg Tablet) 10 mg PO DAILY [facility] Last Admin: 08/27/20 08:26 Dose: 10 mg Documented by: Citalopram Hydrobromide (Citalopram 20 Mg Tablet) 20 mg PO DAILY [facility] Last Admin: 08/27/20 08:27 Dose: 20 mg Documented by: Dexamethasone Sodium Phosphate (Dexamethasone 4 Mg/Ml Vial) 6 mg IV DAILY [facility] Stop: 09/04/20 10:01 Last Admin: 08/27/20 08:28 Dose: 6 mg Documented by: Enoxaparin Sodium (Enoxaparin 30 Mg/0.3 Ml Syringe) 30 mg SC BID [facility] Last Admin: 08/27/20 08:28 Dose: 30 mg Documented by: Ferrous Sulfate (Ferrous Sulfate 325 Mg Tablet) 325 mg PO BID [facility] Last Admin: 08/27/20 08:25 Dose: 325 mg Documented by: Furosemide (Furosemide 40 Mg/4 Ml Vial) 40 mg IV BID@1000,1800 [facility] Last Admin: 08/27/20 12:06 Dose: 40 mg Documented by: Guaifenesin (Guaifenesin 10 Ml Udc (200mg/10ml)) 10 ml PO Q4H PRN PRN PRN Reason: COUGH Hydralazine HCl (Hydralazine 20 Mg/Ml Vial) 10 mg IV Q4H PRN PRN PRN Reason: SBP > 160 Remdesivir 100 mg/ Sodium (Chloride) 250 mls @ 125 mls/hr IV Q24H [facility] Stop: 08/29/20 23:59 Last Infusion: 08/26/20 23:45 Dose: Infused Documented by: Sodium Chloride () 250 mls @ 15 mls/hr IV .[id number] PRN PRN Reason: Saline Flush Sodium Chloride () 250 mls @ 15 mls/hr IV .[id number] PRN PRN Reason: Additional IVPB Infusion Melatonin (Melatonin 3 Mg Tablet) 3 mg PO QHS [facility] Last Admin: 08/26/20 22:36 Dose: 3 mg Documented by: Metoprolol Succinate (Metoprolol(Xl)Succ 25 Mg Tablet) 25 mg PO DAILY [facility] Last Admin: 08/27/20 08:29 Dose: Not Given Documented by: Nitroglycerin (Nitroglycerin (Inpatient Use) 0.4 Mg Tab.Subl) 0.4 mg SUBLINGUAL Q5M PRN PRN Reason: CARDIAC/CHEST PAIN Ondansetron HCl (Ondansetron 4 Mg/2 Ml Vial) 4 mg IV Q8H PRN PRN PRN Reason: NAUSEA/VOMITING Pantoprazole Sodium (Pantoprazole Sodium 40 Mg Tablet) 40 mg PO BID [facility] Last Admin: 08/27/20 08:27 Dose: 40 mg Documented by: Pramipexole Dihydrochloride (Pramipexole Di-Hcl 1 Mg Tablet) 1.5 mg PO TID [facility] Last Admin: 08/27/20 14:40 Dose: Not Given Documented by: Prochlorperazine Edisylate (Prochlorperazine 10 Mg/2 Ml Vial) 5 mg IV Q4H PRN PRN PRN Reason: Breakthrough Nausea/Vomiting Sodium Chloride (0.9% Saline Lock 10 Ml Syringe) 10 - 40 ml IV UD PRN PRN Reason: SALINE FLUSH Last Admin: 08/26/20 11:40 Dose: 10 ml Documented by: Tamsulosin HCl (Tamsulosin Hcl 0.4 Mg Capsule) 0.4 mg PO DAILY [facility] Last Admin: 08/27/20 08:26 Dose: 0.4 mg Documented by: Throat Lozenges (Benzocaine/Menthol 1 Lozenge) 1 lozenge MUCOUS MEM Q2H PRN PRN PRN Reason: SORE THROAT Medical Necessity - Tobacco Use Smoking Status: Former smoker - Patient quit cigarette tobacco usage and 2000 with prior to this 1 pack/day since he been a teenager. Tobacco Use: Non-smoker Route of nutrition/ use of supplements: [] Nutritional Intake: [] IV Site: [] Aguilar Catheter: [] - Assessment/Plan Antibiotics: [] Assessment/Plan: [] Active and Suspected Problems (Last Reviewed 01/16/20 @ 13:50 by Mary Luis PA, PA) Pneumonia due to COVID-19 virus (Acute) Hypoxia (Acute) Acute respiratory failure with hypoxia (Acute) GI bleed (Acute) covid with hypoxia - sx started around 08/20/20. D-dimer 0.5. On dex, remdesivir. Lovenox 30mg bid ordered. Plan on 20 days of quarantine from 08/20. 10 days of dex total. also admitted with covid. Remains on high O2 reqs. Will follow
--- NOTE | 2020-08-27 16:00 | CASEMGMT ---
Pt and state pt has a living will and HCPOA naming . They were made aware documents are not currently in pt records. L[place]
[2020-08-27] MEDS: MELATONIN 3 MG TABLET PO (20:34)
[2020-08-27] MEDS: 0.9% Saline Lock 10 ML Syringe IV (20:36)
[2020-08-28] VITALS (38 sets, daily range): BP systolic 95–140; BP diastolic 46–104; PULSE 42–67; RESP 12–30; TEMP 36.6–37.4; O2SAT 88–99
[2020-08-28] MEDS: 0.9% Saline Lock 10 ML Syringe IV ×4 (04:48→17:20)
[2020-08-28] MEDS: Pramipexole Di-HCl 1 MG Tablet 1.5 MG PO ×3 (04:50→19:58)
--- NOTE | 2020-08-28 05:44 | PN_ITS ---
Patient Problems: Active and Suspected Problems (Last Reviewed 01/16/20 @ 13:50 by Mary Luis PA, PA) Pneumonia due to COVID-19 virus (Acute) Hypoxia (Acute) Acute respiratory failure with hypoxia (Acute) GI bleed (Acute) Subjective: The patient was seen and examined at the bedside this morning. Events from the last 24 hours have been reviewed. The patient is currently afebrile, hemodynamically stable and maintaining appropriate oxygen saturations on BiPAP with an FiO2 requirement of 85%. The patient's CODE STATUS was once again readdressed yesterday, and again confirmed to be DNR CCA without intubation. The patient remains on remdesivir, Decadron and scheduled IV Lasix. The patient remains short of breath and continues to have a cough. Objective: The patient's most recent lab work, culture data and imaging studies have all been personally reviewed. Respiratory viral panel was negative. Strep and urine Legionella antigens were negative. - Physical Exam Vitals/I&O's: Vital Signs Temp Pulse Resp BP Pulse Ox 99.3 F H 44 L 29 H 136/93 H 91 08/28/20 04:42 08/28/20 05:39 08/28/20 05:23 08/28/20 05:39 08/28/20 05:39 Oxygen Flow Rate (L/min) 60 Oxygen Delivery Method Bi-pap Weight: 157 lb 6.561 oz Body Mass Index (BMI) 22.8 Intake and Output for Last 24 Hours 08/26/20 08/27/20 08/28/20 23:59 23:59 23:59 Intake Total 1956.67 / 1956.67 450 / 450 Output Total 500 / 500 1475 / 1475 Balance 1456.67 / 1456.67 -1025 / -1025 General: Alert, Cooperative, - - BiPAP mask in place HEENT: Atraumatic, Normocephalic Oral: Dry Mucosa Neck: Supple, No Nodes, Trachea Midline Lungs: Diminished, Short of Breath, Tachypneic Cardiovascular: Normal S1, Normal S2, Bradycardic Abdomen: Bowel Sounds Present, Soft, Non Tender Extremities: No clubbing, No cyanosis, No edema Skin: No breakdown Musculoskeletal: No Tenderness to Palpation of Joints or Extremities Lymphatic: No Cervical, Supraclavicular, or Inguinal Adenopathy Neurological: Cranial nerves II-XII grossly intact, Neuro grossly intact Psych/Mental Status: Flat Affect Labs (Last 48 Hours) 08/27/20 08/27/20 08/27/20 06:45 06:45 06:45 WBC 9.4 RBC 4.75 Hgb 13.8 Hct 41.0 MCV 86.3 MCH 29.1 MCHC 33.7 RDW Std Deviation 46.7 H RDW Coeff of Jihan 14.6 Plt Count 169 MPV 9.9 D-Dimer Quant (PE/DVT) 0.50 H Sodium 137 Potassium 4.1 Chloride 107 Carbon Dioxide 23.0 Anion Gap 7 BUN 20 H Creatinine 0.76 Estim Creat Clear Calc 57.52 Est GFR (MDRD) Af Amer 127 Est GFR (MDRD) Non-Af 105 BUN/Creatinine Ratio 26.5 H Glucose 107 H Calcium 8.2 L Magnesium 2.1 Total Bilirubin 0.80 Direct Bilirubin 0.19 AST 30 ALT 30 Alkaline Phosphatase 42 L Total Protein 5.5 L Albumin 2.7 L Globulin 2.8 Microbiology 08/26/20 01:08 Mucosa - Nasopharyngeal Respiratory Panel (PCR) - Final 08/26/20 02:30 Urine, Clean Catch Streptococcus pneumoniae Antigen (M - Final 08/26/20 02:30 Urine, Clean Catch Legionella Antigen - Final Clinical Impression(s) from Imaging Studies Chest X-Ray 08/25/20 19:05 IMPRESSION: Patchy airspace opacity in the mid to lower lung field which is worse when compared with the prior exam. This is consistent with pneumonia in this COVID positive patient. Electronically Signed: Ben Minaya MD at 19:17 EST Tel , Service support , Current Medications Acetaminophen (Acetaminophen 325 Mg Tablet) 650 mg PO Q6H PRN PRN PRN Reason: Pain Score 1-10/Temp > 100.7 F Last Admin: 08/27/20 07:04 Dose: 650 mg Documented by: Al Hydroxide/Mg Hydroxide (Mag Hydrox/Al Hydrox/Simeth 30 Ml Udc) 30 ml PO Q6H PRN PRN PRN Reason: Gastric Burning Albuterol Sulfate (Albuterol Ih 8.5 Gm (Proair) Inhaler (200 Puffs)) 4 - 8 puff INHALATION Q4H PRN PRN PRN Reason: Dyspnea, wheezing Amlodipine Besylate (Amlodipine 10 Mg Tablet) 10 mg PO DAILY [facility] Last Admin: 08/27/20 08:27 Dose: 10 mg Documented by: Atorvastatin Calcium (Atorvastatin Calcium 10 Mg Tablet) 10 mg PO DAILY [facility] Last Admin: 08/27/20 08:26 Dose: 10 mg Documented by: Citalopram Hydrobromide (Citalopram 20 Mg Tablet) 20 mg PO DAILY [facility] Last Admin: 08/27/20 08:27 Dose: 20 mg Documented by: Dexamethasone Sodium Phosphate (Dexamethasone 4 Mg/Ml Vial) 6 mg IV DAILY [facility] Stop: 09/04/20 10:01 Last Admin: 08/27/20 08:28 Dose: 6 mg Documented by: Enoxaparin Sodium (Enoxaparin 30 Mg/0.3 Ml Syringe) 30 mg SC BID [facility] Last Admin: 08/27/20 20:34 Dose: 30 mg Documented by: Ferrous Sulfate (Ferrous Sulfate 325 Mg Tablet) 325 mg PO BID [facility] Last Admin: 08/27/20 20:34 Dose: 325 mg Documented by: Furosemide (Furosemide 40 Mg/4 Ml Vial) 40 mg IV BID@1000,1800 [facility] Last Admin: 08/27/20 17:39 Dose: 40 mg Documented by: Guaifenesin (Guaifenesin 10 Ml Udc (200mg/10ml)) 10 ml PO Q4H PRN PRN PRN Reason: COUGH Hydralazine HCl (Hydralazine 20 Mg/Ml Vial) 10 mg IV Q4H PRN PRN PRN Reason: SBP > 160 Remdesivir 100 mg/ Sodium (Chloride) 250 mls @ 125 mls/hr IV Q24H [facility] Stop: 08/29/20 23:59 Last Infusion: 08/27/20 23:10 Dose: Infused Documented by: Sodium Chloride () 250 mls @ 15 mls/hr IV .[id number] PRN PRN Reason: Saline Flush Sodium Chloride () 250 mls @ 15 mls/hr IV .[id number] PRN PRN Reason: Additional IVPB Infusion Melatonin (Melatonin 3 Mg Tablet) 3 mg PO QHS [facility] Last Admin: 08/27/20 20:34 Dose: 3 mg Documented by: Metoprolol Succinate (Metoprolol(Xl)Succ 25 Mg Tablet) 25 mg PO DAILY [facility] Last Admin: 08/27/20 08:29 Dose: Not Given Documented by: Nitroglycerin (Nitroglycerin (Inpatient Use) 0.4 Mg Tab.Subl) 0.4 mg SUBLINGUAL Q5M PRN PRN Reason: CARDIAC/CHEST PAIN Ondansetron HCl (Ondansetron 4 Mg/2 Ml Vial) 4 mg IV Q8H PRN PRN PRN Reason: NAUSEA/VOMITING Pantoprazole Sodium (Pantoprazole Sodium 40 Mg Tablet) 40 mg PO BID [facility] Last Admin: 08/27/20 20:35 Dose: 40 mg Documented by: Pramipexole Dihydrochloride (Pramipexole Di-Hcl 1 Mg Tablet) 1.5 mg PO TID [facility] Last Admin: 08/28/20 04:50 Dose: 1.5 mg Documented by: Prochlorperazine Edisylate (Prochlorperazine 10 Mg/2 Ml Vial) 5 mg IV Q4H PRN PRN PRN Reason: Breakthrough Nausea/Vomiting Sodium Chloride (0.9% Saline Lock 10 Ml Syringe) 10 - 40 ml IV UD PRN PRN Reason: SALINE FLUSH Last Admin: 08/28/20 04:54 Dose: 10 ml Documented by: Tamsulosin HCl (Tamsulosin Hcl 0.4 Mg Capsule) 0.4 mg PO DAILY [facility] Last Admin: 08/27/20 08:26 Dose: 0.4 mg Documented by: Throat Lozenges (Benzocaine/Menthol 1 Lozenge) 1 lozenge MUCOUS MEM Q2H PRN PRN PRN Reason: SORE THROAT Medical Necessity - Tobacco Use Smoking Status: Former smoker - Patient quit cigarette tobacco usage and 2000 with prior to this 1 pack/day since he been a teenager. Tobacco Use: Non-smoker Assessment/Plan All Active Problems (Last Reviewed 01/16/20 @ 13:50 by Mary KING, PA) Pneumonia due to COVID-19 virus (Acute) Hypoxia (Acute) Acute respiratory failure with hypoxia (Acute) GI bleed (Acute) Exertional angina (Acute) Dyspnea on exertion (Acute) History of coronary artery stent placement (Resolved 09/08/19) Blood in urine (Resolved) UTI (urinary tract infection) (Resolved) RECOMMENDATIONS: 1. Continue BiPAP support and wean FiO2 to maintain oxygen saturations at or above 90%. 2. Continue scheduled IV diuretic therapy as tolerated by hemodynamics and renal function. 3. Continue Decadron to complete 10-day treatment course. 4. Continue remdesivir as ordered. Monitor liver and renal function accordingly. 5. Continue twice daily PPI therapy. IMPRESSIONS: 1. Acute hypoxemic respiratory failure secondary to COVID-19 pneumonia Plan to continue current supportive measures including noninvasive positive pressure ventilatory support to maintain saturations at or above 90%. Continue Decadron with plans to complete a 10-day treatment course. Remdesivir will be continued as well. Will monitor liver and renal function accordingly. Encourage incentive spirometer use and mobilize patient as tolerated. IV Lasix will be continued as tolerated by hemodynamics and renal function. 2. History of coronary artery disease status post PCI Continue baseline outpatient cardiac medications. 3. Advanced age/BPH/hypertension/hyperlipidemia/peripheral vascular disease Complicates care, management, recovery and prognosis. Continue home medications as indicated. CODE STATUS confirmed to be DNR CCA without intubation. This note was generated with [employer] dictation software. It may contain incorrect words, spelling, and punctuation that were not noted in checking the note before signing. Inpatient E&M: [id number] [facility]
[2020-08-28 05:57] LABS: Hematocrit 43.1 % (40-54); Hemoglobin 14.2 g/dL (13.0-16.5); Mean Corp Hgb Conc 32.9 g/dL (32-36); Mean Corpuscular Hgb 28.7 pg (27.0-32.0); Mean Corpuscular Volume 87.2 fL (80-94); Mean Platelet Vol. 10.2 fl (6.2-12.0); Platelet Count 186 K/mm3 (150-450); RBC Distribution Width CV 14.7 % (11.6-14.6); RBC Distribution Width SD 47.5 fl (35.1-43.9); Red Blood Count 4.94 M/mm3 (4.6-6.2); White Blood Count 10.6 K/mm3 (4.4-11.0)
[2020-08-28 06:22] LABS: AST(SGOT) 28 U/L (15-37); Alanine Aminotransfer ALT/SGPT 34 U/L (16-61); Albumin, Serum 2.8 g/dL (3.2-5.0); Alkaline Phosphatase 48 U/L (45-117); Anion Gap 5 (5-15); BUN 26 mg/dL (7-18); BUN/Creat Ratio 30.2 RATIO (10-20); Bilirubin, Direct 0.34 mg/dL (0.00-0.30); Calcium,Total 8.3 mg/dL (8.5-10.1); Chloride 100 mmol/L (98-107); Creatinine, Serum 0.86 mg/dL (0.70-1.30); EST Glomerular Filtration Rate 90 mL/min (>60); Est Glom Filt Rate - Afr Amer 109 mL/min (>60); Estimated Creatinine Clearance 66.88 ml/min; Globulin 2.6 g/dL (2.2-4.2); Glucose 94 mg/dL (74-106); Potassium 3.5 mmol/L (3.5-5.1); Protein, Total 5.4 g/dL (6.4-8.2); Sodium Level 135 mmol/L (136-145)
--- NOTE | 2020-08-28 07:32 | PCM.PN.HOSP ---
Patient Problems: Active and Suspected Problems (Last Reviewed 01/16/20 @ 13:50 by Mary Luis PA, PA) Pneumonia due to COVID-19 virus (Acute) Hypoxia (Acute) Acute respiratory failure with hypoxia (Acute) GI bleed (Acute) Reason for Visit: Acute hypoxic respiratory failure Subjective: Patient is an 84-year-old gentleman with multiple comorbidities admitted with 1 week history of fever chills body aches cough and progressive dyspnea. An assessment of acute hypoxic respiratory failure secondary to COVID-19 pneumonia made admitted to the intensive care unit for further management 08/28/2020; patient respiratory status deteriorated resulting in patient being placed on the BiPAP. Discussions were held with patient 1 more time to confirm his CODE STATUS which is DNR CCA no intubation. The MOLST form was completed Objective: GENERAL: Dyspneic at rest HEENT: Atraumatic; EYES; Anicteric, Normal Conjunctiva NECK; supple, normal thyroid, RESPIRATORY: Diminished to auscultation CARDIOVASCULAR: Regular S1 S2, GI: soft, normoactive bowel sounds, : No Renal angle tenderness; EXTREMITIES: No edema, no clubbing, MUSCULOSKELETAL: no muscle waisting NEURO: Awake; no lateralizing signs. SKIN: No Rash PSYCH; Flat affect Vitals/I&O's: Vital Signs Temp Pulse Resp BP Pulse Ox 99.3 F H 51 L 28 H 107/91 H 93 08/28/20 04:42 08/28/20 06:34 08/28/20 06:00 08/28/20 06:00 08/28/20 06:34 Oxygen Flow Rate (L/min) 60 Oxygen Delivery Method Bi-pap Weight: 71.8 kg Body Mass Index (BMI) 22.8 Intake and Output for Last 24 Hours 08/26/20 08/27/20 08/28/20 23:59 23:59 23:59 Intake Total 1956.67 / 1956.67 450 / 450 Output Total 500 / 500 1475 / 1475 Balance 1456.67 / 1456.67 -1025 / -1025 Microbiology Past 72 Hours 08/25/20 19:34 Blood Culture (Wb) - Anticubital Left Blood Culture - Preliminary No growth in 48 hours. 08/25/20 18:50 Blood Culture (Wb) - Anticubital Right Blood Culture - Preliminary No growth in 48 hours. 08/26/20 01:08 Mucosa - Nasopharyngeal Respiratory Panel (PCR) - Final 08/26/20 02:30 Urine, Clean Catch Streptococcus pneumoniae Antigen (M - Final 08/26/20 02:30 Urine, Clean Catch Legionella Antigen - Final Laboratory Results 08/27/20 06:45: D-Dimer Quant (PE/DVT) 0.50 H 08/27/20 06:45: Sodium 137, Potassium 4.1, Chloride 107, Carbon Dioxide 23.0, Anion Gap 7, BUN 20 H, Creatinine 0.76, Estim Creat Clear Calc 57.52, Est GFR (MDRD) Af Amer 127, Est GFR (MDRD) Non-Af 105, BUN/Creatinine Ratio 26.5 H, Glucose 107 H, Calcium 8.2 L, Magnesium 2.1, Total Bilirubin 0.80, Direct Bilirubin 0.19, AST 30, ALT 30, Alkaline Phosphatase 42 L, Total Protein 5.5 L, Albumin 2.7 L, Globulin 2.8 08/28/20 05:12: WBC 10.6, RBC 4.94, Hgb 14.2, Hct 43.1, MCV 87.2, MCH 28.7, MCHC 32.9, RDW Std Deviation 47.5 H, RDW Coeff of Jihan 14.7 H, Plt Count 186, MPV 10.2 08/28/20 05:12: Sodium 135 L, Potassium 3.5, Chloride 100, Carbon Dioxide 30.0, Anion Gap 5, BUN 26 H, Creatinine 0.86, Estim Creat Clear Calc 66.88, Est GFR (MDRD) Af Amer 109, Est GFR (MDRD) Non-Af 90, BUN/Creatinine Ratio 30.2 H, Glucose 94, Calcium 8.3 L, Total Bilirubin 1.00, Direct Bilirubin 0.34 H, AST 28, ALT 34, Alkaline Phosphatase 48, Total Protein 5.4 L, Albumin 2.8 L, Globulin 2.6 Current Medications Acetaminophen (Acetaminophen 325 Mg Tablet) 650 mg PO Q6H PRN PRN PRN Reason: Pain Score 1-10/Temp > 100.7 F Last Admin: 08/27/20 07:04 Dose: 650 mg Documented by: Al Hydroxide/Mg Hydroxide (Mag Hydrox/Al Hydrox/Simeth 30 Ml Udc) 30 ml PO Q6H PRN PRN PRN Reason: Gastric Burning Albuterol Sulfate (Albuterol Ih 8.5 Gm (Proair) Inhaler (200 Puffs)) 4 - 8 puff INHALATION Q4H PRN PRN PRN Reason: Dyspnea, wheezing Amlodipine Besylate (Amlodipine 10 Mg Tablet) 10 mg PO DAILY [facility] Last Admin: 08/27/20 08:27 Dose: 10 mg Documented by: Atorvastatin Calcium (Atorvastatin Calcium 10 Mg Tablet) 10 mg PO DAILY [facility] Last Admin: 08/27/20 08:26 Dose: 10 mg Documented by: Citalopram Hydrobromide (Citalopram 20 Mg Tablet) 20 mg PO DAILY [facility] Last Admin: 08/27/20 08:27 Dose: 20 mg Documented by: Dexamethasone Sodium Phosphate (Dexamethasone 4 Mg/Ml Vial) 6 mg IV DAILY [facility] Stop: 09/04/20 10:01 Last Admin: 08/27/20 08:28 Dose: 6 mg Documented by: Enoxaparin Sodium (Enoxaparin 30 Mg/0.3 Ml Syringe) 30 mg SC BID [facility] Last Admin: 08/27/20 20:34 Dose: 30 mg Documented by: Ferrous Sulfate (Ferrous Sulfate 325 Mg Tablet) 325 mg PO BID [facility] Last Admin: 08/27/20 20:34 Dose: 325 mg Documented by: Furosemide (Furosemide 40 Mg/4 Ml Vial) 40 mg IV BID@1000,1800 [facility] Last Admin: 08/27/20 17:39 Dose: 40 mg Documented by: Guaifenesin (Guaifenesin 10 Ml Udc (200mg/10ml)) 10 ml PO Q4H PRN PRN PRN Reason: COUGH Hydralazine HCl (Hydralazine 20 Mg/Ml Vial) 10 mg IV Q4H PRN PRN PRN Reason: SBP > 160 Remdesivir 100 mg/ Sodium (Chloride) 250 mls @ 125 mls/hr IV Q24H [facility] Stop: 08/29/20 23:59 Last Infusion: 08/27/20 23:10 Dose: Infused Documented by: Sodium Chloride () 250 mls @ 15 mls/hr IV .[id number] PRN PRN Reason: Saline Flush Sodium Chloride () 250 mls @ 15 mls/hr IV .[id number] PRN PRN Reason: Additional IVPB Infusion Melatonin (Melatonin 3 Mg Tablet) 3 mg PO QHS [facility] Last Admin: 08/27/20 20:34 Dose: 3 mg Documented by: Metoprolol Succinate (Metoprolol(Xl)Succ 25 Mg Tablet) 25 mg PO DAILY [facility] Last Admin: 08/27/20 08:29 Dose: Not Given Documented by: Nitroglycerin (Nitroglycerin (Inpatient Use) 0.4 Mg Tab.Subl) 0.4 mg SUBLINGUAL Q5M PRN PRN Reason: CARDIAC/CHEST PAIN Ondansetron HCl (Ondansetron 4 Mg/2 Ml Vial) 4 mg IV Q8H PRN PRN PRN Reason: NAUSEA/VOMITING Pantoprazole Sodium (Pantoprazole Sodium 40 Mg Tablet) 40 mg PO BID [facility] Last Admin: 08/27/20 20:35 Dose: 40 mg Documented by: Pramipexole Dihydrochloride (Pramipexole Di-Hcl 1 Mg Tablet) 1.5 mg PO TID [facility] Last Admin: 08/28/20 04:50 Dose: 1.5 mg Documented by: Prochlorperazine Edisylate (Prochlorperazine 10 Mg/2 Ml Vial) 5 mg IV Q4H PRN PRN PRN Reason: Breakthrough Nausea/Vomiting Sodium Chloride (0.9% Saline Lock 10 Ml Syringe) 10 - 40 ml IV UD PRN PRN Reason: SALINE FLUSH Last Admin: 08/28/20 04:54 Dose: 10 ml Documented by: Tamsulosin HCl (Tamsulosin Hcl 0.4 Mg Capsule) 0.4 mg PO DAILY [facility] Last Admin: 08/27/20 08:26 Dose: 0.4 mg Documented by: Throat Lozenges (Benzocaine/Menthol 1 Lozenge) 1 lozenge MUCOUS MEM Q2H PRN PRN PRN Reason: SORE THROAT STROKE Vital Signs/Narrative: Vital Signs Temp Pulse Resp BP BP Pulse Ox 08/28/20 06:34 51 L 93 08/28/20 06:01 56 L 08/28/20 06:00 54 L 28 H 107/91 H 92 08/28/20 05:39 44 L 136/93 H 91 08/28/20 05:23 45 L 29 H 92 08/28/20 04:42 99.3 F H 46 L 22 H 120/59 L 91 08/28/20 03:56 42 L 118/60 91 Medical Necessity - Tobacco Use Smoking Status: Former smoker - Patient quit cigarette tobacco usage and 1999 with prior to this 1 pack/day since he been a teenager. Tobacco Use: Non-smoker Assessment/Plan All Active Problems (Last Reviewed 01/16/20 @ 13:50 by Mary Luis PA, PA) Pneumonia due to COVID-19 virus (Acute) Hypoxia (Acute) Acute respiratory failure with hypoxia (Acute) GI bleed (Acute) Exertional angina (Acute) Dyspnea on exertion (Acute) History of coronary artery stent placement (Resolved 09/08/19) Blood in urine (Resolved) UTI (urinary tract infection) (Resolved) Patient is an 84-year-old gentleman with multiple comorbidities admitted with 1 week history of fever chills body aches cough and progressive dyspnea. An assessment of acute hypoxic respiratory failure secondary to COVID-19 pneumonia made admitted to the intensive care unit for further management 1. Acute hypoxic respiratory failure ?Secondary to acute COVID-19 pneumonia. Admitted to the intensive care unit started on remdesivir and Decadron with consultation placed to both pulmonary medicine as well as infectious disease. Patient was also placed on supplemental oxygen titrated to keep saturation greater than 90 -08/27/2019 patient was transferred to the [facility] cohort unit patient however still requires high flow oxygen currently on airvo -08/28/2020; patient respiratory status deteriorated resulting in patient being placed on the BiPAP. Discussions were held with patient 1 more time to confirm his CODE STATUS which is DNR CCA no intubation. The MOLST form was completed 2. Acute COVID-19 pneumonia ?Management as discussed above 3. Dark Stools ?Patient reports not having had a bowel movement for 3 days. Patient was apparently on iron and had reported seeing dark stools but no active bleeding 4. Coronary artery disease ?With PCI of mid LAD lesion on 09/08/2019 5. Peripheral arterial disease ?Status post PCI 6. Hypertension - Blood pressure controlled, home medications continued with dose adjustment as needed 7. Dyslipidemia -Patient is on statin therapy, continued at home dose 8. BPH -Patient is on Flomax and finasteride discontinued 9. Depression with anxiety ?Patient is on Celexa did continue 10. DVT prophylaxis ?Lovenox Inpatient E&M: [id number] [facility] L3
[2020-08-28] MEDS: Citalopram 20 MG Tablet PO (08:28)
[2020-08-28] MEDS: Ferrous Sulfate 325 MG Tablet PO ×2 (08:28→19:59)
[2020-08-28] MEDS: Tamsulosin HCl 0.4 MG Capsule PO (08:28)
[2020-08-28] MEDS: amLODIPine 10 MG Tablet PO (08:29)
[2020-08-28] MEDS: Atorvastatin Calcium 10 MG Tablet PO (08:29)
[2020-08-28] MEDS: Pantoprazole Sodium 40 MG Tablet PO ×2 (08:29→19:58)
[2020-08-28] MEDS: dexAMETHasone 4 MG/ML Vial 6 MG IV (08:30)
[2020-08-28] MEDS: Acetaminophen 325 MG Tablet 650 MG PO ×2 (08:31→14:47)
[2020-08-28] MEDS: Furosemide 40 MG/4 ML Vial IV ×2 (08:35→17:20)
[2020-08-28] MEDS: Enoxaparin 30 MG/0.3 ML Syringe SC ×2 (08:37→19:59)
[2020-08-28] MEDS: MELATONIN 3 MG TABLET PO (19:58)
[2020-08-29] VITALS (19 sets, daily range): BP systolic 99–141; BP diastolic 55–71; PULSE 45–60; RESP 12–24; TEMP 36.3–36.7; O2SAT 93–100
--- NOTE | 2020-08-29 05:47 | PCM.PN.PUL ---
Patient Problems: Active and Suspected Problems (Last Reviewed 01/16/20 @ 13:50 by Mary Luis PA, PA) Pneumonia due to COVID-19 virus (Acute) Hypoxia (Acute) Acute respiratory failure with hypoxia (Acute) GI bleed (Acute) Subjective: The patient was seen and examined at the bedside this morning. Events from the last 24 hours have been reviewed. The patient is currently afebrile, hemodynamically stable and maintaining appropriate oxygen saturations on Airvo heated high flow with an FiO2 requirement of 90% and flow rate of 60 L/min. The patient remains on remdesivir, Decadron and scheduled IV Lasix. Liver and renal function are stable. Objective: The patient's most recent lab work, culture data and imaging studies have all been personally reviewed. Respiratory viral panel was negative. Strep and urine Legionella antigens were negative. - Physical Exam Vitals/I&O's: Vital Signs Temp Pulse Resp BP Pulse Ox 97.7 F L 54 L 24 H 141/66 H 93 08/29/20 00:00 08/29/20 02:55 08/29/20 02:55 08/29/20 00:00 08/29/20 02:55 Oxygen Flow Rate (L/min) 60 Oxygen Delivery Method Bi-pap Weight: 158 lb 11.725 oz Body Mass Index (BMI) 22.8 Intake and Output for Last 24 Hours 08/27/20 08/28/20 08/29/20 23:59 23:59 23:59 Intake Total 450 / 450 480 / 480 250 / 250 Output Total 1475 / 1475 1125 / 1125 100 / 100 Balance -1025 / -1025 -645 / -645 150 / 150 General: Alert, Cooperative, No apparent distress, - - Sitting in bedside recliner HEENT: Atraumatic, PERRLA, Normocephalic Oral: No Gingival or Mucosal Lesions/ Ulcerations Neck: Supple, No Nodes, Trachea Midline Lungs: No rhonchi, No wheeze, No rales, Diminished, Tachypneic Cardiovascular: Normal S1, Normal S2, No murmurs, Bradycardic Abdomen: Bowel Sounds Present, Soft, Non Tender Extremities: No clubbing, No cyanosis, No edema Skin: No breakdown Musculoskeletal: No Tenderness to Palpation of Joints or Extremities Lymphatic: No Cervical, Supraclavicular, or Inguinal Adenopathy Neurological: Cranial nerves II-XII grossly intact, Neuro grossly intact Psych/Mental Status: Flat Affect Labs (Last 48 Hours) 08/27/20 08/27/20 08/27/20 06:45 06:45 06:45 WBC 9.4 RBC 4.75 Hgb 13.8 Hct 41.0 MCV 86.3 MCH 29.1 MCHC 33.7 RDW Std Deviation 46.7 H RDW Coeff of Jihan 14.6 Plt Count 169 MPV 9.9 D-Dimer Quant (PE/DVT) 0.50 H Sodium 137 Potassium 4.1 Chloride 107 Carbon Dioxide 23.0 Anion Gap 7 BUN 20 H Creatinine 0.76 Estim Creat Clear Calc 57.52 Est GFR (MDRD) Af Amer 127 Est GFR (MDRD) Non-Af 105 BUN/Creatinine Ratio 26.5 H Glucose 107 H Calcium 8.2 L Magnesium 2.1 Total Bilirubin 0.80 Direct Bilirubin 0.19 AST 30 ALT 30 Alkaline Phosphatase 42 L Total Protein 5.5 L Albumin 2.7 L Globulin 2.8 08/28/20 08/28/20 05:12 05:12 WBC 10.6 RBC 4.94 Hgb 14.2 Hct 43.1 MCV 87.2 MCH 28.7 MCHC 32.9 RDW Std Deviation 47.5 H RDW Coeff of Jihan 14.7 H Plt Count 186 MPV 10.2 D-Dimer Quant (PE/DVT) Sodium 135 L Potassium 3.5 Chloride 100 Carbon Dioxide 30.0 Anion Gap 5 BUN 26 H Creatinine 0.86 Estim Creat Clear Calc 66.88 Est GFR (MDRD) Af Amer 109 Est GFR (MDRD) Non-Af 90 BUN/Creatinine Ratio 30.2 H Glucose 94 Calcium 8.3 L Magnesium Total Bilirubin 1.00 Direct Bilirubin 0.34 H AST 28 ALT 34 Alkaline Phosphatase 48 Total Protein 5.4 L Albumin 2.8 L Globulin 2.6 Microbiology 08/25/20 19:34 Blood Culture (Wb) - Anticubital Left Blood Culture - Preliminary No growth in 48 hours. 08/25/20 18:50 Blood Culture (Wb) - Anticubital Right Blood Culture - Preliminary No growth in 48 hours. Clinical Impression(s) from Imaging Studies Chest X-Ray 08/25/20 19:05 IMPRESSION: Patchy airspace opacity in the mid to lower lung field which is worse when compared with the prior exam. This is consistent with pneumonia in this COVID positive patient. Electronically Signed: Ben Minaya MD at 19:17 EST Tel , Service support , Current Medications Acetaminophen (Acetaminophen 325 Mg Tablet) 650 mg PO Q6H PRN PRN PRN Reason: Pain Score 1-10/Temp > 100.7 F Last Admin: 08/28/20 14:47 Dose: 650 mg Documented by: Al Hydroxide/Mg Hydroxide (Mag Hydrox/Al Hydrox/Simeth 30 Ml Udc) 30 ml PO Q6H PRN PRN PRN Reason: Gastric Burning Albuterol Sulfate (Albuterol Ih 8.5 Gm (Proair) Inhaler (200 Puffs)) 4 - 8 puff INHALATION Q4H PRN PRN PRN Reason: Dyspnea, wheezing Amlodipine Besylate (Amlodipine 10 Mg Tablet) 10 mg PO DAILY [facility] Last Admin: 08/28/20 08:29 Dose: 10 mg Documented by: Atorvastatin Calcium (Atorvastatin Calcium 10 Mg Tablet) 10 mg PO DAILY [facility] Last Admin: 08/28/20 08:29 Dose: 10 mg Documented by: Citalopram Hydrobromide (Citalopram 20 Mg Tablet) 20 mg PO DAILY [facility] Last Admin: 08/28/20 08:28 Dose: 20 mg Documented by: Dexamethasone Sodium Phosphate (Dexamethasone 4 Mg/Ml Vial) 6 mg IV DAILY [facility] Stop: 09/04/20 10:01 Last Admin: 08/28/20 08:30 Dose: 6 mg Documented by: Enoxaparin Sodium (Enoxaparin 30 Mg/0.3 Ml Syringe) 30 mg SC BID [facility] Last Admin: 08/28/20 19:59 Dose: 30 mg Documented by: Ferrous Sulfate (Ferrous Sulfate 325 Mg Tablet) 325 mg PO BID [facility] Last Admin: 08/28/20 19:59 Dose: 325 mg Documented by: Furosemide (Furosemide 40 Mg/4 Ml Vial) 40 mg IV BID@1000,1800 [facility] Last Admin: 08/28/20 17:20 Dose: 40 mg Documented by: Guaifenesin (Guaifenesin 10 Ml Udc (200mg/10ml)) 10 ml PO Q4H PRN PRN PRN Reason: COUGH Hydralazine HCl (Hydralazine 20 Mg/Ml Vial) 10 mg IV Q4H PRN PRN PRN Reason: SBP > 160 Remdesivir 100 mg/ Sodium (Chloride) 250 mls @ 125 mls/hr IV Q24H [facility] Stop: 08/29/20 23:59 Last Infusion: 08/29/20 01:36 Dose: Infused Documented by: Sodium Chloride () 250 mls @ 15 mls/hr IV .[id number] PRN PRN Reason: Saline Flush Sodium Chloride () 250 mls @ 15 mls/hr IV .[id number] PRN PRN Reason: Additional IVPB Infusion Melatonin (Melatonin 3 Mg Tablet) 3 mg PO QHS [facility] Last Admin: 08/28/20 19:58 Dose: 3 mg Documented by: Metoprolol Succinate (Metoprolol(Xl)Succ 25 Mg Tablet) 25 mg PO DAILY [facility] Last Admin: 08/28/20 08:38 Dose: Not Given Documented by: Nitroglycerin (Nitroglycerin (Inpatient Use) 0.4 Mg Tab.Subl) 0.4 mg SUBLINGUAL Q5M PRN PRN Reason: CARDIAC/CHEST PAIN Ondansetron HCl (Ondansetron 4 Mg/2 Ml Vial) 4 mg IV Q8H PRN PRN PRN Reason: NAUSEA/VOMITING Pantoprazole Sodium (Pantoprazole Sodium 40 Mg Tablet) 40 mg PO BID [facility] Last Admin: 08/28/20 19:58 Dose: 40 mg Documented by: Pramipexole Dihydrochloride (Pramipexole Di-Hcl 1 Mg Tablet) 1.5 mg PO TID [facility] Last Admin: 08/28/20 19:58 Dose: 1.5 mg Documented by: Prochlorperazine Edisylate (Prochlorperazine 10 Mg/2 Ml Vial) 5 mg IV Q4H PRN PRN PRN Reason: Breakthrough Nausea/Vomiting Sodium Chloride (0.9% Saline Lock 10 Ml Syringe) 10 - 40 ml IV UD PRN PRN Reason: SALINE FLUSH Last Admin: 08/28/20 17:20 Dose: 10 ml Documented by: Tamsulosin HCl (Tamsulosin Hcl 0.4 Mg Capsule) 0.4 mg PO DAILY [facility] Last Admin: 08/28/20 08:28 Dose: 0.4 mg Documented by: Throat Lozenges (Benzocaine/Menthol 1 Lozenge) 1 lozenge MUCOUS MEM Q2H PRN PRN PRN Reason: SORE THROAT Medical Necessity - Tobacco Use Smoking Status: Former smoker - Patient quit cigarette tobacco usage and 2000 with prior to this 1 pack/day since he been a teenager. Tobacco Use: Non-smoker Assessment/Plan All Active Problems (Last Reviewed 01/16/20 @ 13:50 by Mary KING, PA) Pneumonia due to COVID-19 virus (Acute) Hypoxia (Acute) Acute respiratory failure with hypoxia (Acute) GI bleed (Acute) Exertional angina (Acute) Dyspnea on exertion (Acute) History of coronary artery stent placement (Resolved 09/08/19) Blood in urine (Resolved) UTI (urinary tract infection) (Resolved) RECOMMENDATIONS: 1. Continue heated high flow oxygen and wean FiO2 to maintain oxygen saturations at or above 90%. 2. Continue scheduled IV diuretic therapy as tolerated by hemodynamics and renal function. 3. Continue Decadron to complete 10-day treatment course. 4. Continue remdesivir as ordered. Monitor liver and renal function accordingly. 5. Continue twice daily PPI therapy. 6. Potassium repletion as ordered. IMPRESSIONS: 1. Acute hypoxemic respiratory failure secondary to COVID-19 pneumonia Plan to continue current supportive measures including supplemental oxygen to maintain saturations at or above 90%. Continue Decadron with plans to complete a 10-day treatment course. Remdesivir will be continued as well. Will monitor liver and renal function accordingly. Encourage incentive spirometer use and mobilize patient as tolerated. IV Lasix will be continued as tolerated by hemodynamics and renal function. 2. History of coronary artery disease status post PCI Continue baseline outpatient cardiac medications. 3. Hypokalemia Electrolyte repletion as ordered. Recheck levels in the morning. 4. Advanced age/BPH/hypertension/hyperlipidemia/peripheral vascular disease Complicates care, management, recovery and prognosis. Continue home medications as indicated. CODE STATUS confirmed to be DNR CCA without intubation. This note was generated with [employer] dictation software. It may contain incorrect words, spelling, and punctuation that were not noted in checking the note before signing. Inpatient E&M: [id number] [facility] L3
[2020-08-29 05:49] LABS: Hematocrit 41.8 % (40-54); Hemoglobin 13.8 g/dL (13.0-16.5); Mean Corpuscular Hgb 28.5 pg (27.0-32.0); Mean Corpuscular Volume 86.4 fL (80-94); Mean Platelet Vol. 10.2 fl (6.2-12.0); Platelet Count 213 K/mm3 (150-450); RBC Distribution Width CV 14.5 % (11.6-14.6); RBC Distribution Width SD 45.7 fl (35.1-43.9); Red Blood Count 4.84 M/mm3 (4.6-6.2); White Blood Count 11.7 K/mm3 (4.4-11.0)
[2020-08-29] MEDS: Pramipexole Di-HCl 1 MG Tablet 1.5 MG PO ×3 (06:30→21:15)
[2020-08-29 06:37] LABS: BUN 31 mg/dL (7-18); Creatinine, Serum 0.81 mg/dL (0.70-1.30); Glucose 104 mg/dL (74-106)
[2020-08-29 06:38] LABS: AST(SGOT) 33 U/L (15-37); Alanine Aminotransfer ALT/SGPT 42 U/L (16-61); Albumin, Serum 2.7 g/dL (3.2-5.0); Alkaline Phosphatase 49 U/L (45-117); Anion Gap 6 (5-15); BUN/Creat Ratio 38.2 RATIO (10-20); Bilirubin, Direct 0.23 mg/dL (0.00-0.30); Calcium,Total 8.4 mg/dL (8.5-10.1); Chloride 103 mmol/L (98-107); EST Glomerular Filtration Rate 97 mL/min (>60); Est Glom Filt Rate - Afr Amer 117 mL/min (>60); Potassium 3.2 mmol/L (3.5-5.1); Protein, Total 5.7 g/dL (6.4-8.2); Sodium Level 137 mmol/L (136-145)
--- NOTE | 2020-08-29 07:26 | PCM.PN.HOSP ---
Patient Problems: Active and Suspected Problems (Last Reviewed 01/16/20 @ 13:50 by Mary Luis PA, PA) Pneumonia due to COVID-19 virus (Acute) Hypoxia (Acute) Acute respiratory failure with hypoxia (Acute) GI bleed (Acute) Reason for Visit: Acute hypoxic respiratory failure Subjective: Patient is an 84-year-old gentleman with multiple comorbidities admitted with 1 week history of fever chills body aches cough and progressive dyspnea. An assessment of acute hypoxic respiratory failure secondary to COVID-19 pneumonia made admitted to the intensive care unit for further management 08/28/2020; patient respiratory status deteriorated resulting in patient being placed on the BiPAP. Discussions were held with patient 1 more time to confirm his CODE STATUS which is DNR CCA no intubation. The MOLST form was completed 08/29/2020; potassium down to 3.2 correction initiated patient remains on high flow oxygen (Airvol) saturation in the high 90s plan is to wean down to nasal cannula Objective: GENERAL: Dyspneic at rest HEENT: Atraumatic; EYES; Anicteric, Normal Conjunctiva NECK; supple, normal thyroid, RESPIRATORY: Diminished to auscultation CARDIOVASCULAR: Regular S1 S2, GI: soft, normoactive bowel sounds, : No Renal angle tenderness; EXTREMITIES: No edema, no clubbing, MUSCULOSKELETAL: no muscle waisting NEURO: Awake; no lateralizing signs. SKIN: No Rash PSYCH; Flat affect Vitals/I&O's: Vital Signs Temp Pulse Resp BP Pulse Ox 97.7 F L 45 L 21 H 131/64 H 94 08/29/20 06:00 08/29/20 06:00 08/29/20 06:00 08/29/20 06:00 08/29/20 06:00 Oxygen Flow Rate (L/min) 60 Oxygen Delivery Method Airvo Weight: 72 kg Body Mass Index (BMI) 22.8 Intake and Output for Last 24 Hours 08/27/20 08/28/20 08/29/20 23:59 23:59 23:59 Intake Total 450 / 450 480 / 480 350 / 350 Output Total 1475 / 1475 1125 / 1125 350 / 350 Balance -1025 / -1025 -645 / -645 0 / 0 Microbiology Past 72 Hours 08/25/20 19:34 Blood Culture (Wb) - Anticubital Left Blood Culture - Preliminary No growth in 48 hours. 08/25/20 18:50 Blood Culture (Wb) - Anticubital Right Blood Culture - Preliminary No growth in 48 hours. 08/26/20 01:08 Mucosa - Nasopharyngeal Respiratory Panel (PCR) - Final 08/26/20 02:30 Urine, Clean Catch Streptococcus pneumoniae Antigen (M - Final 08/26/20 02:30 Urine, Clean Catch Legionella Antigen - Final Laboratory Results 08/29/20 05:26: WBC 11.7 H, RBC 4.84, Hgb 13.8, Hct 41.8, MCV 86.4, MCH 28.5, MCHC 33.0, RDW Std Deviation 45.7 H, RDW Coeff of Jihan 14.5, Plt Count 213, MPV 10.2 08/29/20 05:26: Sodium 137, Potassium 3.2 L, Chloride 103, Carbon Dioxide 28.0, Anion Gap 6, BUN 31 H, Creatinine 0.81, Estim Creat Clear Calc 71.60, Est GFR (MDRD) Af Amer 117, Est GFR (MDRD) Non-Af 97, BUN/Creatinine Ratio 38.2 H, Glucose 104, Calcium 8.4 L, Total Bilirubin 1.00, Direct Bilirubin 0.23, AST 33, ALT 42, Alkaline Phosphatase 49, Total Protein 5.7 L, Albumin 2.7 L, Globulin 3.0 Current Medications Acetaminophen (Acetaminophen 325 Mg Tablet) 650 mg PO Q6H PRN PRN PRN Reason: Pain Score 1-10/Temp > 100.7 F Last Admin: 08/28/20 14:47 Dose: 650 mg Documented by: Al Hydroxide/Mg Hydroxide (Mag Hydrox/Al Hydrox/Simeth 30 Ml Udc) 30 ml PO Q6H PRN PRN PRN Reason: Gastric Burning Albuterol Sulfate (Albuterol Ih 8.5 Gm (Proair) Inhaler (200 Puffs)) 4 - 8 puff INHALATION Q4H PRN PRN PRN Reason: Dyspnea, wheezing Amlodipine Besylate (Amlodipine 10 Mg Tablet) 10 mg PO DAILY [facility] Last Admin: 08/28/20 08:29 Dose: 10 mg Documented by: Atorvastatin Calcium (Atorvastatin Calcium 10 Mg Tablet) 10 mg PO DAILY [facility] Last Admin: 08/28/20 08:29 Dose: 10 mg Documented by: Citalopram Hydrobromide (Citalopram 20 Mg Tablet) 20 mg PO DAILY [facility] Last Admin: 08/28/20 08:28 Dose: 20 mg Documented by: Dexamethasone Sodium Phosphate (Dexamethasone 4 Mg/Ml Vial) 6 mg IV DAILY [facility] Stop: 09/04/20 10:01 Last Admin: 08/28/20 08:30 Dose: 6 mg Documented by: Enoxaparin Sodium (Enoxaparin 30 Mg/0.3 Ml Syringe) 30 mg SC BID [facility] Last Admin: 08/28/20 19:59 Dose: 30 mg Documented by: Ferrous Sulfate (Ferrous Sulfate 325 Mg Tablet) 325 mg PO BID [facility] Last Admin: 08/28/20 19:59 Dose: 325 mg Documented by: Furosemide (Furosemide 40 Mg/4 Ml Vial) 40 mg IV BID@1000,1800 [facility] Last Admin: 08/28/20 17:20 Dose: 40 mg Documented by: Guaifenesin (Guaifenesin 10 Ml Udc (200mg/10ml)) 10 ml PO Q4H PRN PRN PRN Reason: COUGH Hydralazine HCl (Hydralazine 20 Mg/Ml Vial) 10 mg IV Q4H PRN PRN PRN Reason: SBP > 160 Remdesivir 100 mg/ Sodium (Chloride) 250 mls @ 125 mls/hr IV Q24H [facility] Stop: 08/29/20 23:59 Last Infusion: 08/29/20 01:36 Dose: Infused Documented by: Sodium Chloride () 250 mls @ 15 mls/hr IV .[id number] PRN PRN Reason: Saline Flush Sodium Chloride () 250 mls @ 15 mls/hr IV .[id number] PRN PRN Reason: Additional IVPB Infusion Potassium Chloride 40 meq/ (Sodium Chloride) 520 mls @ 130 mls/hr IV .Q4H [facility] Stop: 08/29/20 11:29 Melatonin (Melatonin 3 Mg Tablet) 3 mg PO QHS [facility] Last Admin: 08/28/20 19:58 Dose: 3 mg Documented by: Metoprolol Succinate (Metoprolol(Xl)Succ 25 Mg Tablet) 25 mg PO DAILY [facility] Last Admin: 08/28/20 08:38 Dose: Not Given Documented by: Nitroglycerin (Nitroglycerin (Inpatient Use) 0.4 Mg Tab.Subl) 0.4 mg SUBLINGUAL Q5M PRN PRN Reason: CARDIAC/CHEST PAIN Ondansetron HCl (Ondansetron 4 Mg/2 Ml Vial) 4 mg IV Q8H PRN PRN PRN Reason: NAUSEA/VOMITING Pantoprazole Sodium (Pantoprazole Sodium 40 Mg Tablet) 40 mg PO BID [facility] Last Admin: 08/28/20 19:58 Dose: 40 mg Documented by: Potassium Chloride (Potassium [facility] 20 Meq [facility]) [facility] Pramipexole Dihydrochloride (Pramipexole Di-Hcl 1 Mg Tablet) 1.5 mg PO TID [facility] Last Admin: 08/29/20 06:30 Dose: 1.5 mg Documented by: Prochlorperazine Edisylate (Prochlorperazine 10 Mg/2 Ml Vial) 5 mg IV Q4H PRN PRN PRN Reason: Breakthrough Nausea/Vomiting Sodium Chloride (0.9% Saline Lock 10 Ml Syringe) 10 - 40 ml IV UD PRN PRN Reason: SALINE FLUSH Last Admin: 08/28/20 17:20 Dose: 10 ml Documented by: Tamsulosin HCl (Tamsulosin Hcl 0.4 Mg Capsule) 0.4 mg PO DAILY [facility] Last Admin: 08/28/20 08:28 Dose: 0.4 mg Documented by: Throat Lozenges (Benzocaine/Menthol 1 Lozenge) 1 lozenge MUCOUS MEM Q2H PRN PRN PRN Reason: SORE THROAT STROKE Vital Signs/Narrative: Vital Signs Temp Pulse Resp BP Pulse Ox 08/29/20 06:00 97.7 F L 45 L 21 H 131/64 H 94 08/29/20 05:36 48 L 19 H 08/29/20 04:00 97.7 F L 51 L 20 H 99/66 95 Medical Necessity - Tobacco Use Smoking Status: Former smoker - Patient quit cigarette tobacco usage and 2000 with prior to this 1 pack/day since he been a teenager. Tobacco Use: Non-smoker Assessment/Plan All Active Problems (Last Reviewed 01/16/20 @ 13:50 by Mary Luis PA, PA) Pneumonia due to COVID-19 virus (Acute) Hypoxia (Acute) Acute respiratory failure with hypoxia (Acute) GI bleed (Acute) Exertional angina (Acute) Dyspnea on exertion (Acute) History of coronary artery stent placement (Resolved 09/08/19) Blood in urine (Resolved) UTI (urinary tract infection) (Resolved) Patient is an 84-year-old gentleman with multiple comorbidities admitted with 1 week history of fever chills body aches cough and progressive dyspnea. An assessment of acute hypoxic respiratory failure secondary to COVID-19 pneumonia made admitted to the intensive care unit for further management 1. Acute hypoxic respiratory failure ?Secondary to acute COVID-19 pneumonia. Admitted to the intensive care unit started on remdesivir and Decadron with consultation placed to both pulmonary medicine as well as infectious disease. Patient was also placed on supplemental oxygen titrated to keep saturation greater than 90 -08/27/2019 patient was transferred [facility] patient however still requires high flow oxygen currently on airvo -08/28/2020; patient respiratory status deteriorated resulting in patient being placed on the BiPAP. Discussions were held with patient 1 more time to confirm his CODE STATUS which is DNR CCA no intubation. The MOLST form was completed - 08/29/2020; patient remains on high flow oxygen (Airvol) saturation in the high 90s plan is to wean down to nasal cannula 2. Acute COVID-19 pneumonia ?Management as discussed above 3. Dark Stools ?Patient reports not having had a bowel movement for 3 days. Patient was apparently on iron and had reported seeing dark stools but no active bleeding 4. Coronary artery disease ?With PCI of mid LAD lesion on 09/08/2019 5. Peripheral arterial disease ?Status post PCI 6. Hypertension - Blood pressure controlled, home medications continued with dose adjustment as needed 7. Dyslipidemia -Patient is on statin therapy, continued at home dose 8. BPH -Patient is on Flomax and finasteride discontinued 9. Depression with anxiety ?Patient is on Celexa did continue 10. DVT prophylaxis ?Lovenox 11. Hypokalemia ?Corrected per protocol repeat potassium ordered for a.m. Inpatient E&M: 68531 Subs Hosp L2
[2020-08-29] MEDS: dexAMETHasone 4 MG/ML Vial 6 MG IV (09:46)
[2020-08-29] MEDS: Furosemide 40 MG/4 ML Vial IV ×2 (09:49→16:50)
[2020-08-29] MEDS: 0.9% Saline Lock 10 ML Syringe IV ×3 (09:50→16:50)
[2020-08-29] MEDS: Acetaminophen 325 MG Tablet 650 MG PO ×2 (09:53→22:42)
[2020-08-29] MEDS: Atorvastatin Calcium 10 MG Tablet PO (09:53)
[2020-08-29] MEDS: Pantoprazole Sodium 40 MG Tablet PO ×2 (09:53→21:15)
[2020-08-29] MEDS: Tamsulosin HCl 0.4 MG Capsule PO (09:54)
[2020-08-29] MEDS: Citalopram 20 MG Tablet PO (09:54)
[2020-08-29] MEDS: Ferrous Sulfate 325 MG Tablet PO ×2 (09:54→21:15)
[2020-08-29] MEDS: amLODIPine 10 MG Tablet PO (09:54)
[2020-08-29] MEDS: Enoxaparin 30 MG/0.3 ML Syringe SC ×2 (09:55→21:15)
[2020-08-29] MEDS: MELATONIN 3 MG TABLET PO (21:15)
[2020-08-30] VITALS (19 sets, daily range): BP systolic 113–149; BP diastolic 60–82; PULSE 43–69; RESP 12–30; TEMP 36.3–36.6; O2SAT 90–98
[2020-08-30] MEDS: Pramipexole Di-HCl 1 MG Tablet 1.5 MG PO ×3 (06:17→20:50)
[2020-08-30 06:53] LABS: Hematocrit 43.1 % (40-54); Hemoglobin 14.4 g/dL (13.0-16.5); Mean Corp Hgb Conc 33.4 g/dL (32-36); Mean Corpuscular Hgb 29.1 pg (27.0-32.0); Mean Corpuscular Volume 87.1 fL (80-94); Mean Platelet Vol. 10.5 fl (6.2-12.0); Platelet Count 219 K/mm3 (150-450); RBC Distribution Width CV 14.3 % (11.6-14.6); RBC Distribution Width SD 45.6 fl (35.1-43.9); Red Blood Count 4.95 M/mm3 (4.6-6.2); White Blood Count 10.2 K/mm3 (4.4-11.0)
[2020-08-30 07:19] LABS: Anion Gap 6 (5-15); BUN 32 mg/dL (7-18); BUN/Creat Ratio 39.5 RATIO (10-20); Calcium,Total 8.7 mg/dL (8.5-10.1); Chloride 104 mmol/L (98-107); Creatinine, Serum 0.81 mg/dL (0.70-1.30); EST Glomerular Filtration Rate 97 mL/min (>60); Est Glom Filt Rate - Afr Amer 117 mL/min (>60); Glucose 94 mg/dL (74-106); Magnesium 2.2 mg/dL (1.6-2.6); Potassium 3.6 mmol/L (3.5-5.1); Sodium Level 139 mmol/L (136-145)
[2020-08-30] MEDS: Atorvastatin Calcium 10 MG Tablet PO (08:24)
[2020-08-30] MEDS: Ferrous Sulfate 325 MG Tablet PO ×2 (08:24→20:50)
[2020-08-30] MEDS: Tamsulosin HCl 0.4 MG Capsule PO (08:24)
[2020-08-30] MEDS: Citalopram 20 MG Tablet PO (08:24)
[2020-08-30] MEDS: Pantoprazole Sodium 40 MG Tablet PO ×2 (08:25→20:50)
[2020-08-30] MEDS: amLODIPine 10 MG Tablet PO (08:25)
[2020-08-30] MEDS: dexAMETHasone 4 MG/ML Vial 6 MG IV (08:26)
[2020-08-30] MEDS: Furosemide 40 MG/4 ML Vial IV ×2 (08:30→17:09)
[2020-08-30] MEDS: Enoxaparin 30 MG/0.3 ML Syringe SC ×2 (08:32→20:52)
--- NOTE | 2020-08-30 10:40 | PCM.PN.HOSP ---
Patient Problems: Active and Suspected Problems (Last Reviewed 01/16/20 @ 13:50 by Mary Luis PA, PA) Pneumonia due to COVID-19 virus (Acute) Hypoxia (Acute) Acute respiratory failure with hypoxia (Acute) GI bleed (Acute) Subjective: Feels well, no issues overnight. Stable. Vitals/I&O's: Vital Signs Temp Pulse Resp BP Pulse Ox 97.7 F L 50 L 16 120/70 98 08/30/20 08:35 08/30/20 08:35 08/30/20 08:35 08/30/20 08:35 08/30/20 08:35 Oxygen Flow Rate (L/min) 60 Oxygen Delivery Method Airvo Weight: 197 lb 8.547 oz Body Mass Index (BMI) 22.8 Intake and Output for Last 24 Hours 08/28/20 08/29/20 08/30/20 23:59 23:59 23:59 Intake Total 480 / 480 1600 / 1600 Output Total 1125 / 1125 1300 / 1900 1425 / 1425 Balance -645 / -645 300 / -300 -1425 / -1425 General: Alert, Oriented x3, Cooperative, No apparent distress HEENT: Atraumatic, PERRLA, EOMI, Normocephalic Oral: Moist Mucosa Neck: Supple, No JVD Lungs: Normal air movement, No rhonchi, No wheeze, Diminished, Rales Cardiovascular: Regular rate, Regular Rhythm, Normal S1, Normal S2, No murmurs Abdomen: Soft, Non Tender, Non-Distended, No Hepato-splenomegaly Extremities: No edema, Capillary Refill Less than 3 Seconds Skin: No rashes, No breakdown Neurological: Neuro grossly intact, Sensory exam intact to light touch and pain Psych/Mental Status: Normal Affect, Appropriate Microbiology Past 72 Hours 08/25/20 19:34 Blood Culture (Wb) - Anticubital Left Blood Culture - Preliminary No growth in 48 hours. 08/25/20 18:50 Blood Culture (Wb) - Anticubital Right Blood Culture - Preliminary No growth in 48 hours. Laboratory Results 08/30/20 05:30: WBC 10.2, RBC 4.95, Hgb 14.4, Hct 43.1, MCV 87.1, MCH 29.1, MCHC 33.4, RDW Std Deviation 45.6 H, RDW Coeff of Jihan 14.3, Plt Count 219, MPV 10.5 08/30/20 05:30: Sodium 139, Potassium 3.6, Chloride 104, Carbon Dioxide 29.0, Anion Gap 6, BUN 32 H, Creatinine 0.81, Estim Creat Clear Calc 72.60, Est GFR (MDRD) Af Amer 117, Est GFR (MDRD) Non-Af 97, BUN/Creatinine Ratio 39.5 H, Glucose 94, Calcium 8.7, Magnesium 2.2 Current Medications Acetaminophen (Acetaminophen 325 Mg Tablet) 650 mg PO Q6H PRN PRN PRN Reason: Pain Score 1-10/Temp > 100.7 F Last Admin: 08/29/20 22:42 Dose: 650 mg Documented by: Al Hydroxide/Mg Hydroxide (Mag Hydrox/Al Hydrox/Simeth 30 Ml Udc) 30 ml PO Q6H PRN PRN PRN Reason: Gastric Burning Albuterol Sulfate (Albuterol Ih 8.5 Gm (Proair) Inhaler (200 Puffs)) 4 - 8 puff INHALATION Q4H PRN PRN PRN Reason: Dyspnea, wheezing Amlodipine Besylate (Amlodipine 10 Mg Tablet) 10 mg PO DAILY [facility] Last Admin: 08/30/20 08:25 Dose: 10 mg Documented by: Atorvastatin Calcium (Atorvastatin Calcium 10 Mg Tablet) 10 mg PO DAILY [facility] Last Admin: 08/30/20 08:24 Dose: 10 mg Documented by: Citalopram Hydrobromide (Citalopram 20 Mg Tablet) 20 mg PO DAILY [facility] Last Admin: 08/30/20 08:24 Dose: 20 mg Documented by: Dexamethasone Sodium Phosphate (Dexamethasone 4 Mg/Ml Vial) 6 mg IV DAILY [facility] Stop: 09/04/20 10:01 Last Admin: 08/30/20 08:26 Dose: 6 mg Documented by: Enoxaparin Sodium (Enoxaparin 30 Mg/0.3 Ml Syringe) 30 mg SC BID [facility] Last Admin: 08/30/20 08:32 Dose: 30 mg Documented by: Ferrous Sulfate (Ferrous Sulfate 325 Mg Tablet) 325 mg PO BID [facility] Last Admin: 08/30/20 08:24 Dose: 325 mg Documented by: Furosemide (Furosemide 40 Mg/4 Ml Vial) 40 mg IV BID@1000,1800 [facility] Last Admin: 08/30/20 08:30 Dose: 40 mg Documented by: Guaifenesin (Guaifenesin 10 Ml Udc (200mg/10ml)) 10 ml PO Q4H PRN PRN PRN Reason: COUGH Hydralazine HCl (Hydralazine 20 Mg/Ml Vial) 10 mg IV Q4H PRN PRN PRN Reason: SBP > 160 Sodium Chloride () 250 mls @ 15 mls/hr IV .[id number] PRN PRN Reason: Saline Flush Sodium Chloride () 250 mls @ 15 mls/hr IV .[id number] PRN PRN Reason: Additional IVPB Infusion Melatonin (Melatonin 3 Mg Tablet) 3 mg PO QHS [facility] Last Admin: 08/29/20 21:15 Dose: 3 mg Documented by: Nitroglycerin (Nitroglycerin (Inpatient Use) 0.4 Mg Tab.Subl) 0.4 mg SUBLINGUAL Q5M PRN PRN Reason: CARDIAC/CHEST PAIN Ondansetron HCl (Ondansetron 4 Mg/2 Ml Vial) 4 mg IV Q8H PRN PRN PRN Reason: NAUSEA/VOMITING Pantoprazole Sodium (Pantoprazole Sodium 40 Mg Tablet) 40 mg PO BID [facility] Last Admin: 08/30/20 08:25 Dose: 40 mg Documented by: Potassium Chloride (Potassium Chloride 20 Meq Tablet) 20 meq PO BID@1000,1700 [facility] Last Admin: 08/30/20 08:24 Dose: 20 meq Documented by: Pramipexole Dihydrochloride (Pramipexole Di-Hcl 1 Mg Tablet) 1.5 mg PO TID [facility] Last Admin: 08/30/20 06:17 Dose: 1.5 mg Documented by: Prochlorperazine Edisylate (Prochlorperazine 10 Mg/2 Ml Vial) 5 mg IV Q4H PRN PRN PRN Reason: Breakthrough Nausea/Vomiting Sodium Chloride (0.9% Saline Lock 10 Ml Syringe) 10 - 40 ml IV UD PRN PRN Reason: SALINE FLUSH Last Admin: 08/29/20 16:50 Dose: 20 ml Documented by: Tamsulosin HCl (Tamsulosin Hcl 0.4 Mg Capsule) 0.4 mg PO DAILY [facility] Last Admin: 08/30/20 08:24 Dose: 0.4 mg Documented by: Throat Lozenges (Benzocaine/Menthol 1 Lozenge) 1 lozenge MUCOUS MEM Q2H PRN PRN PRN Reason: SORE THROAT STROKE Vital Signs/Narrative: Vital Signs Temp Pulse Resp BP Pulse Ox 08/30/20 08:35 97.7 F L 50 L 16 120/70 98 08/30/20 08:33 50 L 120/70 08/30/20 08:00 50 L 20 H 92 08/30/20 07:00 47 L Medical Necessity - Tobacco Use Smoking Status: Former smoker - Patient quit cigarette tobacco usage and 2000 with prior to this 1 pack/day since he been a teenager. Tobacco Use: Non-smoker Assessment/Plan All Active Problems (Last Reviewed 01/16/20 @ 13:50 by Mary Luis PA, PA) Pneumonia due to COVID-19 virus (Acute) Hypoxia (Acute) Acute respiratory failure with hypoxia (Acute) GI bleed (Acute) Exertional angina (Acute) Dyspnea on exertion (Acute) History of coronary artery stent placement (Resolved 09/08/19) Blood in urine (Resolved) UTI (urinary tract infection) (Resolved) 1. Acute hypoxic respiratory failure secondary to acute COVID-19 pneumonia -Continue with Decadron, remdesivir's been completed -Continue with Lasix twice daily -Currently on air Vo with BiPAP at night, will continue and hopefully be able to wean over the next several days -D-dimer is normal for age 2. CAD status post stent/PAD/HTN/HLD -Blood pressures are stable -We will continue with his home blood pressure medication -Continue with statin 3. Depression/anxiety -Stable -Continue with Celexa 4. BPH -Stable -Continue with Flomax and finasteride 5. Dark stools/GERD -Hemoglobin is stable, he does take iron -We will continue to monitor -Continue with PPI DVT: Lovenox Inpatient E&M: 75906 Subs Hosp L2
--- NOTE | 2020-08-30 10:50 | PCM.PN.PUL ---
Patient Problems: Active and Suspected Problems (Last Reviewed 01/16/20 @ 13:50 by Mary Luis PA, PA) Pneumonia due to COVID-19 virus (Acute) Hypoxia (Acute) Acute respiratory failure with hypoxia (Acute) GI bleed (Acute) Subjective: Patient did okay overnight. Patient feels subjectively slightly improved compared to previous. Patient states he feels less dyspneic, but is still having a nonproductive cough. - Physical Exam Vitals/I&O's: Vital Signs Temp Pulse Resp BP Pulse Ox 36.5 C L 50 L 16 120/70 98 08/30/20 08:35 08/30/20 08:35 08/30/20 08:35 08/30/20 08:35 08/30/20 08:35 Oxygen Flow Rate (L/min) 60 Oxygen Delivery Method Airvo Weight: 89.6 kg Body Mass Index (BMI) 22.8 Intake and Output for Last 24 Hours 08/28/20 08/29/20 08/30/20 23:59 23:59 23:59 Intake Total 480 / 480 1600 / 1600 Output Total 1125 / 1125 1300 / 1900 1425 / 1425 Balance -645 / -645 300 / -300 -1425 / -1425 General: Alert, Oriented x3, Cooperative, No apparent distress, - - Sitting in bedside recliner HEENT: Atraumatic, PERRLA, EOMI, Normocephalic, - - No scleral icterus or injection noted Oral: Moist Mucosa, No Gingival or Mucosal Lesions/ Ulcerations Neck: Supple, No Nodes, Trachea Midline Lungs: No rhonchi, No wheeze, No rales, Diminished, - - Symmetric expansion. No dullness to percussion. Cardiovascular: Normal S1, Normal S2, Bradycardic, No rub noted, No Gallop Abdomen: Bowel Sounds Present, Soft, Non Tender, Non-Distended Extremities: No clubbing, No cyanosis, No edema Skin: No rashes, No breakdown Musculoskeletal: No Tenderness to Palpation of Joints or Extremities Lymphatic: No Cervical, Supraclavicular, or Inguinal Adenopathy Neurological: Cranial nerves II-XII grossly intact, Neuro grossly intact Psych/Mental Status: Flat Affect Microbiology Past 72 Hours 08/25/20 19:34 Blood Culture (Wb) - Anticubital Left Blood Culture - Preliminary No growth in 48 hours. 08/25/20 18:50 Blood Culture (Wb) - Anticubital Right Blood Culture - Preliminary No growth in 48 hours. Laboratory Results 08/30/20 05:30: WBC 10.2, RBC 4.95, Hgb 14.4, Hct 43.1, MCV 87.1, MCH 29.1, MCHC 33.4, RDW Std Deviation 45.6 H, RDW Coeff of Jihan 14.3, Plt Count 219, MPV 10.5 08/30/20 05:30: Sodium 139, Potassium 3.6, Chloride 104, Carbon Dioxide 29.0, Anion Gap 6, BUN 32 H, Creatinine 0.81, Estim Creat Clear Calc 72.60, Est GFR (MDRD) Af Amer 117, Est GFR (MDRD) Non-Af 97, BUN/Creatinine Ratio 39.5 H, Glucose 94, Calcium 8.7, Magnesium 2.2 Current Medications Acetaminophen (Acetaminophen 325 Mg Tablet) 650 mg PO Q6H PRN PRN PRN Reason: Pain Score 1-10/Temp > 100.7 F Last Admin: 08/29/20 22:42 Dose: 650 mg Documented by: Al Hydroxide/Mg Hydroxide (Mag Hydrox/Al Hydrox/Simeth 30 Ml Udc) 30 ml PO Q6H PRN PRN PRN Reason: Gastric Burning Albuterol Sulfate (Albuterol Ih 8.5 Gm (Proair) Inhaler (200 Puffs)) 4 - 8 puff INHALATION Q4H PRN PRN PRN Reason: Dyspnea, wheezing Amlodipine Besylate (Amlodipine 10 Mg Tablet) 10 mg PO DAILY [facility] Last Admin: 08/30/20 08:25 Dose: 10 mg Documented by: Atorvastatin Calcium (Atorvastatin Calcium 10 Mg Tablet) 10 mg PO DAILY [facility] Last Admin: 08/30/20 08:24 Dose: 10 mg Documented by: Citalopram Hydrobromide (Citalopram 20 Mg Tablet) 20 mg PO DAILY [facility] Last Admin: 08/30/20 08:24 Dose: 20 mg Documented by: Dexamethasone Sodium Phosphate (Dexamethasone 4 Mg/Ml Vial) 6 mg IV DAILY [facility] Stop: 09/04/20 10:01 Last Admin: 08/30/20 08:26 Dose: 6 mg Documented by: Enoxaparin Sodium (Enoxaparin 30 Mg/0.3 Ml Syringe) 30 mg SC BID [facility] Last Admin: 08/30/20 08:32 Dose: 30 mg Documented by: Ferrous Sulfate (Ferrous Sulfate 325 Mg Tablet) 325 mg PO BID [facility] Last Admin: 08/30/20 08:24 Dose: 325 mg Documented by: Furosemide (Furosemide 40 Mg/4 Ml Vial) 40 mg IV BID@1000,1800 [facility] Last Admin: 08/30/20 08:30 Dose: 40 mg Documented by: Guaifenesin (Guaifenesin 10 Ml Udc (200mg/10ml)) 10 ml PO Q4H PRN PRN PRN Reason: COUGH Hydralazine HCl (Hydralazine 20 Mg/Ml Vial) 10 mg IV Q4H PRN PRN PRN Reason: SBP > 160 Sodium Chloride () 250 mls @ 15 mls/hr IV .[id number] PRN PRN Reason: Saline Flush Sodium Chloride () 250 mls @ 15 mls/hr IV .[id number] PRN PRN Reason: Additional IVPB Infusion Melatonin (Melatonin 3 Mg Tablet) 3 mg PO QHS [facility] Last Admin: 08/29/20 21:15 Dose: 3 mg Documented by: Nitroglycerin (Nitroglycerin (Inpatient Use) 0.4 Mg Tab.Subl) 0.4 mg SUBLINGUAL Q5M PRN PRN Reason: CARDIAC/CHEST PAIN Ondansetron HCl (Ondansetron 4 Mg/2 Ml Vial) 4 mg IV Q8H PRN PRN PRN Reason: NAUSEA/VOMITING Pantoprazole Sodium (Pantoprazole Sodium 40 Mg Tablet) 40 mg PO BID [facility] Last Admin: 08/30/20 08:25 Dose: 40 mg Documented by: Potassium Chloride (Potassium Chloride 20 Meq Tablet) 20 meq PO BID@1000,1700 [facility] Last Admin: 08/30/20 08:24 Dose: 20 meq Documented by: Pramipexole Dihydrochloride (Pramipexole Di-Hcl 1 Mg Tablet) 1.5 mg PO TID [facility] Last Admin: 08/30/20 06:17 Dose: 1.5 mg Documented by: Prochlorperazine Edisylate (Prochlorperazine 10 Mg/2 Ml Vial) 5 mg IV Q4H PRN PRN PRN Reason: Breakthrough Nausea/Vomiting Sodium Chloride (0.9% Saline Lock 10 Ml Syringe) 10 - 40 ml IV UD PRN PRN Reason: SALINE FLUSH Last Admin: 08/29/20 16:50 Dose: 20 ml Documented by: Tamsulosin HCl (Tamsulosin Hcl 0.4 Mg Capsule) 0.4 mg PO DAILY [facility] Last Admin: 08/30/20 08:24 Dose: 0.4 mg Documented by: Throat Lozenges (Benzocaine/Menthol 1 Lozenge) 1 lozenge MUCOUS MEM Q2H PRN PRN PRN Reason: SORE THROAT Medical Necessity - Tobacco Use Smoking Status: Former smoker - Patient quit cigarette tobacco usage and 2000 with prior to this 1 pack/day since he been a teenager. Tobacco Use: Non-smoker Assessment/Plan All Active Problems (Last Reviewed 01/16/20 @ 13:50 by Mary Luis PA, PA) Pneumonia due to COVID-19 virus (Acute) Hypoxia (Acute) Acute respiratory failure with hypoxia (Acute) GI bleed (Acute) Exertional angina (Acute) Dyspnea on exertion (Acute) History of coronary artery stent placement (Resolved 09/08/19) Blood in urine (Resolved) UTI (urinary tract infection) (Resolved) RECOMMENDATIONS: 1. Continue heated high flow oxygen and wean FiO2 to maintain oxygen saturations at or above 90%. 2. Continue scheduled IV diuretic therapy as tolerated by hemodynamics and renal function. 3. Continue Decadron to complete 10-day treatment course. 4. Completed remdesivir. Likely not necessary to monitor liver function 5. Continue twice daily PPI therapy. 6. Potassium repletion as indicated by daily labs. IMPRESSIONS: 1. Acute hypoxemic respiratory failure secondary to COVID-19 pneumonia Plan to continue current supportive measures including supplemental oxygen to maintain saturations at or above 90%. Continue Decadron with plans to complete a 10-day treatment course. Remdesivir has been completed. Will monitor liver and renal function accordingly. Encourage incentive spirometer use and mobilize patient as tolerated. IV Lasix will be continued as tolerated by hemodynamics and renal function. 2. History of coronary artery disease status post PCI Continue baseline outpatient cardiac medications. 3. Hypokalemia Appears to be appropriate at this time. Electrolyte repletion as located. Recheck levels in the morning. 4. Advanced age/BPH/hypertension/hyperlipidemia/peripheral vascular disease Complicates care, management, recovery and prognosis. Continue home medications as indicated. CODE STATUS confirmed to be DNR CCA without intubation. Inpatient E&M: 83689 Subs Hosp L3
[2020-08-30] MEDS: Acetaminophen 325 MG Tablet 650 MG PO (11:34)
--- NOTE | 2020-08-30 15:53 | PCM.PN.ID ---
Patient Problems: Active and Suspected Problems (Last Reviewed 01/16/20 @ 13:50 by Mary Luis PA, PA) Pneumonia due to COVID-19 virus (Acute) Hypoxia (Acute) Acute respiratory failure with hypoxia (Acute) GI bleed (Acute) Subjective: Feeling a little better, no fever - Physical Exam Vitals/I&O's: Vital Signs Temp Pulse Resp BP Pulse Ox 97.4 F L 55 L 18 113/66 98 08/30/20 14:35 08/30/20 15:00 08/30/20 14:35 08/30/20 14:35 08/30/20 14:35 Oxygen Flow Rate (L/min) 60 Oxygen Delivery Method Airvo Weight: 89.6 kg Body Mass Index (BMI) 22.8 Intake and Output for Last 24 Hours 08/28/20 08/29/20 08/30/20 23:59 23:59 23:59 Intake Total 480 / 480 1600 / 1600 120 / 120 Output Total 1125 / 1125 1300 / 1900 1600 / 1600 Balance -645 / -645 300 / -300 -1480 / -1480 General: No apparent distress Lungs: Diminished Cardiovascular: Regular rate, Regular Rhythm Abdomen: Soft, Non Tender, Non-Distended Skin: No rashes Microbiology Past 72 Hours 08/25/20 19:34 Blood Culture (Wb) - Anticubital Left Blood Culture - Preliminary No growth in 48 hours. 08/25/20 18:50 Blood Culture (Wb) - Anticubital Right Blood Culture - Preliminary No growth in 48 hours. Laboratory Results 08/30/20 05:30: WBC 10.2, RBC 4.95, Hgb 14.4, Hct 43.1, MCV 87.1, MCH 29.1, MCHC 33.4, RDW Std Deviation 45.6 H, RDW Coeff of Jihan 14.3, Plt Count 219, MPV 10.5 08/30/20 05:30: Sodium 139, Potassium 3.6, Chloride 104, Carbon Dioxide 29.0, Anion Gap 6, BUN 32 H, Creatinine 0.81, Estim Creat Clear Calc 72.60, Est GFR (MDRD) Af Amer 117, Est GFR (MDRD) Non-Af 97, BUN/Creatinine Ratio 39.5 H, Glucose 94, Calcium 8.7, Magnesium 2.2 Current Medications Acetaminophen (Acetaminophen 325 Mg Tablet) 650 mg PO Q6H PRN PRN PRN Reason: Pain Score 1-10/Temp > 100.7 F Last Admin: 08/30/20 11:34 Dose: 650 mg Documented by: Al Hydroxide/Mg Hydroxide (Mag Hydrox/Al Hydrox/Simeth 30 Ml Udc) 30 ml PO Q6H PRN PRN PRN Reason: Gastric Burning Albuterol Sulfate (Albuterol Ih 8.5 Gm (Proair) Inhaler (200 Puffs)) 4 - 8 puff INHALATION Q4H PRN PRN PRN Reason: Dyspnea, wheezing Amlodipine Besylate (Amlodipine 10 Mg Tablet) 10 mg PO DAILY [facility] Last Admin: 08/30/20 08:25 Dose: 10 mg Documented by: Atorvastatin Calcium (Atorvastatin Calcium 10 Mg Tablet) 10 mg PO DAILY [facility] Last Admin: 08/30/20 08:24 Dose: 10 mg Documented by: Citalopram Hydrobromide (Citalopram 20 Mg Tablet) 20 mg PO DAILY [facility] Last Admin: 08/30/20 08:24 Dose: 20 mg Documented by: Dexamethasone Sodium Phosphate (Dexamethasone 4 Mg/Ml Vial) 6 mg IV DAILY [facility] Stop: 09/04/20 10:01 Last Admin: 08/30/20 08:26 Dose: 6 mg Documented by: Enoxaparin Sodium (Enoxaparin 30 Mg/0.3 Ml Syringe) 30 mg SC BID [facility] Last Admin: 08/30/20 08:32 Dose: 30 mg Documented by: Ferrous Sulfate (Ferrous Sulfate 325 Mg Tablet) 325 mg PO BID [facility] Last Admin: 08/30/20 08:24 Dose: 325 mg Documented by: Furosemide (Furosemide 40 Mg/4 Ml Vial) 40 mg IV BID@1000,1800 [facility] Last Admin: 08/30/20 08:30 Dose: 40 mg Documented by: Guaifenesin (Guaifenesin 10 Ml Udc (200mg/10ml)) 10 ml PO Q4H PRN PRN PRN Reason: COUGH Hydralazine HCl (Hydralazine 20 Mg/Ml Vial) 10 mg IV Q4H PRN PRN PRN Reason: SBP > 160 Sodium Chloride () 250 mls @ 15 mls/hr IV .[id number] PRN PRN Reason: Saline Flush Sodium Chloride () 250 mls @ 15 mls/hr IV .[id number] PRN PRN Reason: Additional IVPB Infusion Melatonin (Melatonin 3 Mg Tablet) 3 mg PO QHS [facility] Last Admin: 08/29/20 21:15 Dose: 3 mg Documented by: Nitroglycerin (Nitroglycerin (Inpatient Use) 0.4 Mg Tab.Subl) 0.4 mg SUBLINGUAL Q5M PRN PRN Reason: CARDIAC/CHEST PAIN Ondansetron HCl (Ondansetron 4 Mg/2 Ml Vial) 4 mg IV Q8H PRN PRN PRN Reason: NAUSEA/VOMITING Pantoprazole Sodium (Pantoprazole Sodium 40 Mg Tablet) 40 mg PO BID [facility] Last Admin: 08/30/20 08:25 Dose: 40 mg Documented by: Potassium Chloride (Potassium Chloride 20 Meq Tablet) 20 meq PO BID@1000,1700 [facility] Last Admin: 08/30/20 08:24 Dose: 20 meq Documented by: Pramipexole Dihydrochloride (Pramipexole Di-Hcl 1 Mg Tablet) 1.5 mg PO TID [facility] Last Admin: 08/30/20 14:59 Dose: 1.5 mg Documented by: Prochlorperazine Edisylate (Prochlorperazine 10 Mg/2 Ml Vial) 5 mg IV Q4H PRN PRN PRN Reason: Breakthrough Nausea/Vomiting Sodium Chloride (0.9% Saline Lock 10 Ml Syringe) 10 - 40 ml IV UD PRN PRN Reason: SALINE FLUSH Last Admin: 08/29/20 16:50 Dose: 20 ml Documented by: Tamsulosin HCl (Tamsulosin Hcl 0.4 Mg Capsule) 0.4 mg PO DAILY [facility] Last Admin: 08/30/20 08:24 Dose: 0.4 mg Documented by: Throat Lozenges (Benzocaine/Menthol 1 Lozenge) 1 lozenge MUCOUS MEM Q2H PRN PRN PRN Reason: SORE THROAT Medical Necessity - Tobacco Use Smoking Status: Former smoker - Patient quit cigarette tobacco usage and 2000 with prior to this 1 pack/day since he been a teenager. Tobacco Use: Non-smoker Route of nutrition/ use of supplements: [] Nutritional Intake: [] IV Site: [] Aguilar Catheter: [] - Assessment/Plan Antibiotics: [] Assessment/Plan: [] Active and Suspected Problems (Last Reviewed 01/16/20 @ 13:50 by Mary Luis PA, PA) Pneumonia due to COVID-19 virus (Acute) Hypoxia (Acute) Acute respiratory failure with hypoxia (Acute) GI bleed (Acute) covid with hypoxia - sx started around 08/20/20. D-dimer 0.5. On dex, completed remdesivir. Lovenox 30mg bid ordered. Plan on 20 days of quarantine from 08/20. 10 days of dex total. also admitted with covid, now discharged. Remains on high O2 reqs. Will follow
[2020-08-30] MEDS: 0.9% Saline Lock 10 ML Syringe IV (17:09)
[2020-08-30] MEDS: MELATONIN 3 MG TABLET PO (20:49)
[2020-08-30] MEDS: Polyethylene Glycol 3350 17 GM PACKET PO (20:49)
[2020-08-31] VITALS (20 sets, daily range): BP systolic 107–148; BP diastolic 54–75; PULSE 44–82; RESP 16–31; TEMP 36.3–36.7; O2SAT 92–100
[2020-08-31] MEDS: Pramipexole Di-HCl 1 MG Tablet 1.5 MG PO ×3 (05:15→21:36)
[2020-08-31 06:47] LABS: Hematocrit 45.1 % (40-54); Hemoglobin 14.8 g/dL (13.0-16.5); Mean Corp Hgb Conc 32.8 g/dL (32-36); Mean Corpuscular Volume 88.3 fL (80-94); Mean Platelet Vol. 10.6 fl (6.2-12.0); Platelet Count 261 K/mm3 (150-450); RBC Distribution Width CV 14.3 % (11.6-14.6); RBC Distribution Width SD 46.2 fl (35.1-43.9); Red Blood Count 5.11 M/mm3 (4.6-6.2); White Blood Count 15.7 K/mm3 (4.4-11.0)
[2020-08-31 07:23] LABS: Anion Gap 4 (5-15); BUN 39 mg/dL (7-18); BUN/Creat Ratio 38.6 RATIO (10-20); Chloride 101 mmol/L (98-107); Creatinine, Serum 1.01 mg/dL (0.70-1.30); EST Glomerular Filtration Rate 75 mL/min (>60); Est Glom Filt Rate - Afr Amer 91 mL/min (>60); Estimated Creatinine Clearance 58.22 ml/min; Glucose 89 mg/dL (74-106); Potassium 3.5 mmol/L (3.5-5.1); Sodium Level 136 mmol/L (136-145)
[2020-08-31] MEDS: Ferrous Sulfate 325 MG Tablet PO ×2 (08:08→21:36)
[2020-08-31] MEDS: Citalopram 20 MG Tablet PO (08:08)
[2020-08-31] MEDS: Tamsulosin HCl 0.4 MG Capsule PO (08:09)
[2020-08-31] MEDS: Atorvastatin Calcium 10 MG Tablet PO (08:09)
[2020-08-31] MEDS: Pantoprazole Sodium 40 MG Tablet PO ×2 (08:10→21:36)
[2020-08-31] MEDS: Polyethylene Glycol 3350 17 GM PACKET PO (08:10)
[2020-08-31] MEDS: amLODIPine 10 MG Tablet PO (08:11)
[2020-08-31] MEDS: dexAMETHasone 4 MG/ML Vial 6 MG IV (08:12)
[2020-08-31] MEDS: Furosemide 40 MG/4 ML Vial IV ×2 (08:16→17:01)
[2020-08-31] MEDS: Enoxaparin 30 MG/0.3 ML Syringe SC ×2 (08:17→21:36)
[2020-08-31] MEDS: 0.9% Saline Lock 10 ML Syringe IV ×2 (08:17→17:01)
--- NOTE | 2020-08-31 08:44 | PCM.PN.PUL ---
Patient Problems: Active and Suspected Problems (Last Reviewed 01/16/20 @ 13:50 by Mary Luis PA, PA) Pneumonia due to COVID-19 virus (Acute) Hypoxia (Acute) Acute respiratory failure with hypoxia (Acute) GI bleed (Acute) Subjective: Patient did well overnight. No acute issues were reported. Patient did report insomnia and some mild confusion overnight. Patient denies any chest pain and feels subjectively improved from a breathing standpoint. - Physical Exam Vitals/I&O's: Vital Signs Temp Pulse Resp BP Pulse Ox 36.6 C 48 L 24 H 118/54 L 93 08/31/20 05:19 08/31/20 08:01 08/31/20 08:01 08/31/20 08:15 08/31/20 08:01 Oxygen Flow Rate (L/min) 7 Oxygen Delivery Method Nasal Cannula Weight: 87.498 kg Body Mass Index (BMI) 22.8 Intake and Output for Last 24 Hours 08/29/20 08/30/20 08/31/20 23:59 23:59 23:59 Intake Total 1600 / 1600 820 / 820 60 / 60 Output Total 1300 / 1900 2125 / 2125 450 / 450 Balance 300 / -300 -1305 / -1305 -390 / -390 General: Alert, Oriented x3, Cooperative, No apparent distress, - - Speaking in full sentences. HEENT: Atraumatic, PERRLA, EOMI, Normocephalic, - - No scleral icterus or injection noted Oral: Moist Mucosa, No Gingival or Mucosal Lesions/ Ulcerations Neck: Supple, No JVD, No Nodes, Trachea Midline Lungs: No rhonchi, No wheeze, No rales, Diminished Cardiovascular: Regular Rhythm, Normal S1, Normal S2, No murmurs, Bradycardic, No rub noted, No Gallop Abdomen: Bowel Sounds Present, Soft, Non Tender, Non-Distended Extremities: No clubbing, No cyanosis, No edema Skin: No rashes, No breakdown Musculoskeletal: No Tenderness to Palpation of Joints or Extremities Lymphatic: No Cervical, Supraclavicular, or Inguinal Adenopathy Neurological: Cranial nerves II-XII grossly intact, Neuro grossly intact, Motor Exam 5/5 strength throughout Psych/Mental Status: Normal Affect, Appropriate Microbiology Past 72 Hours 08/25/20 19:34 Blood Culture (Wb) - Anticubital Left Blood Culture - Final No growth in 5 days. 08/25/20 18:50 Blood Culture (Wb) - Anticubital Right Blood Culture - Final No growth in 5 days. Laboratory Results 08/31/20 05:54: WBC 15.7 H, RBC 5.11, Hgb 14.8, Hct 45.1, MCV 88.3, MCH 29.0, MCHC 32.8, RDW Std Deviation 46.2 H, RDW Coeff of Jihan 14.3, Plt Count 261, MPV 10.6 08/31/20 05:54: Sodium 136, Potassium 3.5, Chloride 101, Carbon Dioxide 31.0, Anion Gap 4 L, BUN 39 H, Creatinine 1.01, Estim Creat Clear Calc 58.22, Est GFR (MDRD) Af Amer 91, Est GFR (MDRD) Non-Af 75, BUN/Creatinine Ratio 38.6 H, Glucose 89, Calcium 9.0 Current Medications Acetaminophen (Acetaminophen 325 Mg Tablet) 650 mg PO Q6H PRN PRN PRN Reason: Pain Score 1-10/Temp > 100.7 F Last Admin: 08/30/20 11:34 Dose: 650 mg Documented by: Al Hydroxide/Mg Hydroxide (Mag Hydrox/Al Hydrox/Simeth 30 Ml Udc) 30 ml PO Q6H PRN PRN PRN Reason: Gastric Burning Albuterol Sulfate (Albuterol Ih 8.5 Gm (Proair) Inhaler (200 Puffs)) 4 - 8 puff INHALATION Q4H PRN PRN PRN Reason: Dyspnea, wheezing Amlodipine Besylate (Amlodipine 10 Mg Tablet) 10 mg PO DAILY [facility] Last Admin: 08/31/20 08:11 Dose: 10 mg Documented by: Atorvastatin Calcium (Atorvastatin Calcium 10 Mg Tablet) 10 mg PO DAILY [facility] Last Admin: 08/31/20 08:09 Dose: 10 mg Documented by: Citalopram Hydrobromide (Citalopram 20 Mg Tablet) 20 mg PO DAILY [facility] Last Admin: 08/31/20 08:08 Dose: 20 mg Documented by: Dexamethasone Sodium Phosphate (Dexamethasone 4 Mg/Ml Vial) 6 mg IV DAILY [facility] Stop: 09/04/20 10:01 Last Admin: 08/31/20 08:12 Dose: 6 mg Documented by: Enoxaparin Sodium (Enoxaparin 30 Mg/0.3 Ml Syringe) 30 mg SC BID [facility] Last Admin: 08/31/20 08:17 Dose: 30 mg Documented by: Ferrous Sulfate (Ferrous Sulfate 325 Mg Tablet) 325 mg PO BID [facility] Last Admin: 08/31/20 08:08 Dose: 325 mg Documented by: Furosemide (Furosemide 40 Mg/4 Ml Vial) 40 mg IV BID@1000,1800 [facility] Last Admin: 08/31/20 08:16 Dose: 40 mg Documented by: Guaifenesin (Guaifenesin 10 Ml Udc (200mg/10ml)) 10 ml PO Q4H PRN PRN PRN Reason: COUGH Hydralazine HCl (Hydralazine 20 Mg/Ml Vial) 10 mg IV Q4H PRN PRN PRN Reason: SBP > 160 Sodium Chloride () 250 mls @ 15 mls/hr IV .[id number] PRN PRN Reason: Saline Flush Sodium Chloride () 250 mls @ 15 mls/hr IV .[id number] PRN PRN Reason: Additional IVPB Infusion Melatonin (Melatonin 3 Mg Tablet) 3 mg PO QHS [facility] Last Admin: 08/30/20 20:49 Dose: 3 mg Documented by: Nitroglycerin (Nitroglycerin (Inpatient Use) 0.4 Mg Tab.Subl) 0.4 mg SUBLINGUAL Q5M PRN PRN Reason: CARDIAC/CHEST PAIN Ondansetron HCl (Ondansetron 4 Mg/2 Ml Vial) 4 mg IV Q8H PRN PRN PRN Reason: NAUSEA/VOMITING Pantoprazole Sodium (Pantoprazole Sodium 40 Mg Tablet) 40 mg PO BID [facility] Last Admin: 08/31/20 08:10 Dose: 40 mg Documented by: Polyethylene Glycol (Polyethylene Glycol 3350 17 Gm Packet) 17 gm PO DAILY [facility] Last Admin: 08/31/20 08:10 Dose: 17 gm Documented by: Potassium Chloride (Potassium Chloride 20 Meq Tablet) 20 meq PO BID@1000,1700 [facility] Last Admin: 08/31/20 08:09 Dose: 20 meq Documented by: Pramipexole Dihydrochloride (Pramipexole Di-Hcl 1 Mg Tablet) 1.5 mg PO TID [facility] Last Admin: 08/31/20 05:15 Dose: 1.5 mg Documented by: Prochlorperazine Edisylate (Prochlorperazine 10 Mg/2 Ml Vial) 5 mg IV Q4H PRN PRN PRN Reason: Breakthrough Nausea/Vomiting Sodium Chloride (0.9% Saline Lock 10 Ml Syringe) 10 - 40 ml IV UD PRN PRN Reason: SALINE FLUSH Last Admin: 08/31/20 08:17 Dose: 20 ml Documented by: Tamsulosin HCl (Tamsulosin Hcl 0.4 Mg Capsule) 0.4 mg PO DAILY [facility] Last Admin: 08/31/20 08:09 Dose: 0.4 mg Documented by: Throat Lozenges (Benzocaine/Menthol 1 Lozenge) 1 lozenge MUCOUS MEM Q2H PRN PRN PRN Reason: SORE THROAT Medical Necessity - Tobacco Use Smoking Status: Former smoker - Patient quit cigarette tobacco usage and 2000 with prior to this 1 pack/day since he been a teenager. Tobacco Use: Non-smoker Assessment/Plan All Active Problems (Last Reviewed 01/16/20 @ 13:50 by Mary Luis PA, PA) Pneumonia due to COVID-19 virus (Acute) Hypoxia (Acute) Acute respiratory failure with hypoxia (Acute) GI bleed (Acute) Exertional angina (Acute) Dyspnea on exertion (Acute) History of coronary artery stent placement (Resolved 09/08/19) Blood in urine (Resolved) UTI (urinary tract infection) (Resolved) RECOMMENDATIONS: 1. Attempt transition to low flow nasal cannula and wean FiO2 to maintain oxygen saturations at or above 90%. 2. Continue scheduled IV diuretic therapy as tolerated by hemodynamics and renal function. 3. Continue Decadron to complete 10-day treatment course. 4. Completed remdesivir. 5. Continue twice daily PPI therapy. 6. Potassium repletion as indicated by daily labs. IMPRESSIONS: 1. Acute hypoxemic respiratory failure secondary to COVID-19 pneumonia Plan to continue current supportive measures including supplemental oxygen to maintain saturations at or above 90%. Continue Decadron with plans to complete a 10-day treatment course. Remdesivir has been completed. Will monitor liver and renal function accordingly. Encourage incentive spirometer use and mobilize patient as tolerated. May need to decrease Lasix dosing pending labs tomorrow. 2. History of coronary artery disease status post PCI Continue baseline outpatient cardiac medications. 3. Hypokalemia Appears to be appropriate at this time. Electrolyte repletion as located. Recheck levels in the morning. 4. Advanced age/BPH/hypertension/hyperlipidemia/peripheral vascular disease Complicates care, management, recovery and prognosis. Continue home medications as indicated. CODE STATUS confirmed to be DNR CCA without intubation. Inpatient E&M: [id number] [facility]
--- NOTE | 2020-08-31 09:31 | PCM.PN.HOSP ---
Patient Problems: Active and Suspected Problems (Last Reviewed 01/16/20 @ 13:50 by Mary Luis PA, PA) Pneumonia due to COVID-19 virus (Acute) Hypoxia (Acute) Acute respiratory failure with hypoxia (Acute) GI bleed (Acute) Subjective: Feels little bit better, no issues overnight. Off of air Vo and on 7 to 8 L nasal cannula. Vitals/I&O's: Vital Signs Temp Pulse Resp BP Pulse Ox 97.8 F 48 L 24 H 118/54 L 93 08/31/20 05:19 08/31/20 08:01 08/31/20 08:01 08/31/20 08:15 08/31/20 08:01 Oxygen Flow Rate (L/min) 7 Oxygen Delivery Method Nasal Cannula Weight: 192 lb 14.4 oz Body Mass Index (BMI) 22.8 Intake and Output for Last 24 Hours 08/29/20 08/30/20 08/31/20 23:59 23:59 23:59 Intake Total 1600 / 1600 820 / 820 60 / 60 Output Total 1300 / 1900 2125 / 2125 450 / 450 Balance 300 / -300 -1305 / -1305 -390 / -390 General: Alert, Oriented x3, Cooperative, No apparent distress HEENT: Atraumatic, PERRLA, EOMI, Normocephalic Oral: Moist Mucosa Neck: Supple, No JVD Lungs: Normal air movement, No rhonchi, No wheeze, no rales, diminished, Cardiovascular: Regular rate, Regular Rhythm, Normal S1, Normal S2, No murmurs Abdomen: Soft, Non Tender, Non-Distended, No Hepato-splenomegaly Extremities: No edema, Capillary Refill Less than 3 Seconds Skin: No rashes, No breakdown Neurological: Neuro grossly intact, Sensory exam intact to light touch and pain Psych/Mental Status: Normal Affect, Appropriate Microbiology Past 72 Hours 08/25/20 19:34 Blood Culture (Wb) - Anticubital Left Blood Culture - Final No growth in 5 days. 08/25/20 18:50 Blood Culture (Wb) - Anticubital Right Blood Culture - Final No growth in 5 days. Laboratory Results 08/31/20 05:54: WBC 15.7 H, RBC 5.11, Hgb 14.8, Hct 45.1, MCV 88.3, MCH 29.0, MCHC 32.8, RDW Std Deviation 46.2 H, RDW Coeff of Jihan 14.3, Plt Count 261, MPV 10.6 08/31/20 05:54: Sodium 136, Potassium 3.5, Chloride 101, Carbon Dioxide 31.0, Anion Gap 4 L, BUN 39 H, Creatinine 1.01, Estim Creat Clear Calc 58.22, Est GFR (MDRD) Af Amer 91, Est GFR (MDRD) Non-Af 75, BUN/Creatinine Ratio 38.6 H, Glucose 89, Calcium 9.0 Current Medications Acetaminophen (Acetaminophen 325 Mg Tablet) 650 mg PO Q6H PRN PRN PRN Reason: Pain Score 1-10/Temp > 100.7 F Last Admin: 08/30/20 11:34 Dose: 650 mg Documented by: Al Hydroxide/Mg Hydroxide (Mag Hydrox/Al Hydrox/Simeth 30 Ml Udc) 30 ml PO Q6H PRN PRN PRN Reason: Gastric Burning Albuterol Sulfate (Albuterol Ih 8.5 Gm (Proair) Inhaler (200 Puffs)) 4 - 8 puff INHALATION Q4H PRN PRN PRN Reason: Dyspnea, wheezing Amlodipine Besylate (Amlodipine 10 Mg Tablet) 10 mg PO DAILY [facility] Last Admin: 08/31/20 08:11 Dose: 10 mg Documented by: Atorvastatin Calcium (Atorvastatin Calcium 10 Mg Tablet) 10 mg PO DAILY [facility] Last Admin: 08/31/20 08:09 Dose: 10 mg Documented by: Citalopram Hydrobromide (Citalopram 20 Mg Tablet) 20 mg PO DAILY [facility] Last Admin: 08/31/20 08:08 Dose: 20 mg Documented by: Dexamethasone Sodium Phosphate (Dexamethasone 4 Mg/Ml Vial) 6 mg IV DAILY [facility] Stop: 09/04/20 10:01 Last Admin: 08/31/20 08:12 Dose: 6 mg Documented by: Enoxaparin Sodium (Enoxaparin 30 Mg/0.3 Ml Syringe) 30 mg SC BID [facility] Last Admin: 08/31/20 08:17 Dose: 30 mg Documented by: Ferrous Sulfate (Ferrous Sulfate 325 Mg Tablet) 325 mg PO BID [facility] Last Admin: 08/31/20 08:08 Dose: 325 mg Documented by: Furosemide (Furosemide 40 Mg/4 Ml Vial) 40 mg IV BID@1000,1800 [facility] Last Admin: 08/31/20 08:16 Dose: 40 mg Documented by: Guaifenesin (Guaifenesin 10 Ml Udc (200mg/10ml)) 10 ml PO Q4H PRN PRN PRN Reason: COUGH Hydralazine HCl (Hydralazine 20 Mg/Ml Vial) 10 mg IV Q4H PRN PRN PRN Reason: SBP > 160 Sodium Chloride () 250 mls @ 15 mls/hr IV .[id number] PRN PRN Reason: Saline Flush Sodium Chloride () 250 mls @ 15 mls/hr IV .[id number] PRN PRN Reason: Additional IVPB Infusion Melatonin (Melatonin 3 Mg Tablet) 3 mg PO QHS [facility] Last Admin: 08/30/20 20:49 Dose: 3 mg Documented by: Nitroglycerin (Nitroglycerin (Inpatient Use) 0.4 Mg Tab.Subl) 0.4 mg SUBLINGUAL Q5M PRN PRN Reason: CARDIAC/CHEST PAIN Ondansetron HCl (Ondansetron 4 Mg/2 Ml Vial) 4 mg IV Q8H PRN PRN PRN Reason: NAUSEA/VOMITING Pantoprazole Sodium (Pantoprazole Sodium 40 Mg Tablet) 40 mg PO BID [facility] Last Admin: 08/31/20 08:10 Dose: 40 mg Documented by: Polyethylene Glycol (Polyethylene Glycol 3350 17 Gm Packet) 17 gm PO DAILY [facility] Last Admin: 08/31/20 08:10 Dose: 17 gm Documented by: Potassium Chloride (Potassium Chloride 20 Meq Tablet) 20 meq PO BID@1000,1700 [facility] Last Admin: 08/31/20 08:09 Dose: 20 meq Documented by: Pramipexole Dihydrochloride (Pramipexole Di-Hcl 1 Mg Tablet) 1.5 mg PO TID [facility] Last Admin: 08/31/20 05:15 Dose: 1.5 mg Documented by: Prochlorperazine Edisylate (Prochlorperazine 10 Mg/2 Ml Vial) 5 mg IV Q4H PRN PRN PRN Reason: Breakthrough Nausea/Vomiting Sodium Chloride (0.9% Saline Lock 10 Ml Syringe) 10 - 40 ml IV UD PRN PRN Reason: SALINE FLUSH Last Admin: 08/31/20 08:17 Dose: 20 ml Documented by: Tamsulosin HCl (Tamsulosin Hcl 0.4 Mg Capsule) 0.4 mg PO DAILY [facility] Last Admin: 08/31/20 08:09 Dose: 0.4 mg Documented by: Throat Lozenges (Benzocaine/Menthol 1 Lozenge) 1 lozenge MUCOUS MEM Q2H PRN PRN PRN Reason: SORE THROAT STROKE Vital Signs/Narrative: Vital Signs Pulse Resp BP Pulse Ox 08/31/20 08:15 118/54 L 08/31/20 08:01 48 L 24 H 93 08/31/20 06:59 45 L Medical Necessity - Tobacco Use Smoking Status: Former smoker - Patient quit cigarette tobacco usage and 2000 with prior to this 1 pack/day since he been a teenager. Tobacco Use: Non-smoker Assessment/Plan All Active Problems (Last Reviewed 01/16/20 @ 13:50 by Mary Luis PA, PA) Pneumonia due to COVID-19 virus (Acute) Hypoxia (Acute) Acute respiratory failure with hypoxia (Acute) GI bleed (Acute) Exertional angina (Acute) Dyspnea on exertion (Acute) History of coronary artery stent placement (Resolved 09/08/19) Blood in urine (Resolved) UTI (urinary tract infection) (Resolved) 1. Acute hypoxic respiratory failure secondary to acute COVID-19 pneumonia -Continue with Decadron, remdesivir's been completed -Continue with Lasix twice daily -Currently off 7 to 8 L nasal cannula -D-dimer is normal for age 2. CAD status post stent/PAD/HTN/HLD -Blood pressures are stable -We will continue with his home blood pressure medication -Continue with statin 3. Depression/anxiety -Stable -Continue with Celexa 4. BPH -Stable -Continue with Flomax and finasteride 5. Dark stools/GERD -Hemoglobin is stable, he does take iron -We will continue to monitor -Continue with PPI DVT: Lovenox Inpatient E&M: 85830 Subs Hosp L2
--- NOTE | 2020-08-31 15:38 | CASEMGMT ---
RN CM Note: Pt has weaned to 8L NC. He worked with PT/OT today and ambulated 120' with stand by assist. Call to [facility]- they are going to home to assist with pt's empty portable tanks. will be home. DC PLAN: anticipate home on discharge with family support. Reagan HERNANDES RN ACM
--- NOTE | 2020-08-31 17:51 | NURSING ---
Unable to collect sputum sample this shift d/t non-productive cough.
[2020-08-31] MEDS: MELATONIN 3 MG TABLET PO (21:36)
[2020-09-01] VITALS (17 sets, daily range): BP systolic 104–133; BP diastolic 53–68; PULSE 48–102; RESP 16–22; TEMP 36.2–37; O2SAT 80–97
[2020-09-01] MEDS: Pramipexole Di-HCl 1 MG Tablet 1.5 MG PO ×3 (06:27→21:41)
[2020-09-01 06:47] LABS: Hematocrit 45.5 % (40-54); Hemoglobin 15.1 g/dL (13.0-16.5); Mean Corp Hgb Conc 33.2 g/dL (32-36); Mean Corpuscular Hgb 28.9 pg (27.0-32.0); Mean Platelet Vol. 10.7 fl (6.2-12.0); Platelet Count 259 K/mm3 (150-450); RBC Distribution Width CV 14.3 % (11.6-14.6); RBC Distribution Width SD 45.7 fl (35.1-43.9); Red Blood Count 5.23 M/mm3 (4.6-6.2); White Blood Count 15.7 K/mm3 (4.4-11.0)
[2020-09-01 07:16] LABS: Anion Gap 3 (5-15); BUN 43 mg/dL (7-18); BUN/Creat Ratio 43.3 RATIO (10-20); Chloride 102 mmol/L (98-107); Creatinine, Serum 0.99 mg/dL (0.70-1.30); EST Glomerular Filtration Rate 77 mL/min (>60); Est Glom Filt Rate - Afr Amer 93 mL/min (>60); Glucose 107 mg/dL (74-106); Potassium 3.7 mmol/L (3.5-5.1); Sodium Level 136 mmol/L (136-145)
--- NOTE | 2020-09-01 09:46 | PCM.PN.HOSP ---
Patient Problems: Active and Suspected Problems (Last Reviewed 01/16/20 @ 13:50 by Mary Luis PA, PA) Pneumonia due to COVID-19 virus (Acute) Hypoxia (Acute) Acute respiratory failure with hypoxia (Acute) GI bleed (Acute) Subjective: Stable, his oxygen is improved and is down to 5 to 6 L nasal cannula maintaining sats. No issues overnight Vitals/I&O's: Vital Signs Temp Pulse Resp BP Pulse Ox 98.6 F 57 L 16 113/59 L 95 09/01/20 08:57 09/01/20 08:57 09/01/20 08:57 09/01/20 08:57 09/01/20 09:23 Oxygen Flow Rate (L/min) 5 Oxygen Delivery Method Nasal Cannula Weight: 189 lb 13.088 oz Body Mass Index (BMI) 22.8 Intake and Output for Last 24 Hours 08/30/20 08/31/20 09/01/20 23:59 23:59 23:59 Intake Total 820 / 820 840 / 840 200 / 200 Output Total 2125 / 2125 1325 / 1325 575 / 575 Balance -1305 / -1305 -485 / -485 -375 / -375 General: Alert, Oriented x3, Cooperative, No apparent distress HEENT: Atraumatic, PERRLA, EOMI, Normocephalic Oral: Moist Mucosa Neck: Supple, No JVD Lungs: Normal air movement, No rhonchi, No wheeze, no rales, diminished, Cardiovascular: Regular rate, Regular Rhythm, Normal S1, Normal S2, No murmurs Abdomen: Soft, Non Tender, Non-Distended, No Hepato-splenomegaly Extremities: No edema, Capillary Refill Less than 3 Seconds Skin: No rashes, No breakdown Neurological: Neuro grossly intact, Sensory exam intact to light touch and pain Psych/Mental Status: Normal Affect, Appropriate Microbiology Past 72 Hours 08/25/20 19:34 Blood Culture (Wb) - Anticubital Left Blood Culture - Final No growth in 5 days. 08/25/20 18:50 Blood Culture (Wb) - Anticubital Right Blood Culture - Final No growth in 5 days. Laboratory Results 09/01/20 06:20: WBC 15.7 H, RBC 5.23, Hgb 15.1, Hct 45.5, MCV 87.0, MCH 28.9, MCHC 33.2, RDW Std Deviation 45.7 H, RDW Coeff of Jihan 14.3, Plt Count 259, MPV 10.7 09/01/20 06:20: Sodium 136, Potassium 3.7, Chloride 102, Carbon Dioxide 31.0, Anion Gap 3 L, BUN 43 H, Creatinine 0.99, Estim Creat Clear Calc 59.40, Est GFR (MDRD) Af Amer 93, Est GFR (MDRD) Non-Af 77, BUN/Creatinine Ratio 43.3 H, Glucose 107 H, Calcium 9.0 Current Medications Acetaminophen (Acetaminophen 325 Mg Tablet) 650 mg PO Q6H PRN PRN PRN Reason: Pain Score 1-10/Temp > 100.7 F Last Admin: 08/30/20 11:34 Dose: 650 mg Documented by: Al Hydroxide/Mg Hydroxide (Mag Hydrox/Al Hydrox/Simeth 30 Ml Udc) 30 ml PO Q6H PRN PRN PRN Reason: Gastric Burning Albuterol Sulfate (Albuterol Ih 8.5 Gm (Proair) Inhaler (200 Puffs)) 4 - 8 puff INHALATION Q4H PRN PRN PRN Reason: Dyspnea, wheezing Amlodipine Besylate (Amlodipine 10 Mg Tablet) 10 mg PO DAILY [facility] Last Admin: 08/31/20 08:11 Dose: 10 mg Documented by: Atorvastatin Calcium (Atorvastatin Calcium 10 Mg Tablet) 10 mg PO DAILY [facility] Last Admin: 08/31/20 08:09 Dose: 10 mg Documented by: Citalopram Hydrobromide (Citalopram 20 Mg Tablet) 20 mg PO DAILY [facility] Last Admin: 08/31/20 08:08 Dose: 20 mg Documented by: Dexamethasone Sodium Phosphate (Dexamethasone 4 Mg/Ml Vial) 6 mg IV DAILY [facility] Stop: 09/04/20 10:01 Last Admin: 08/31/20 08:12 Dose: 6 mg Documented by: Enoxaparin Sodium (Enoxaparin 30 Mg/0.3 Ml Syringe) 30 mg SC BID [facility] Last Admin: 08/31/20 21:36 Dose: 30 mg Documented by: Ferrous Sulfate (Ferrous Sulfate 325 Mg Tablet) 325 mg PO BID [facility] Last Admin: 08/31/20 21:36 Dose: 325 mg Documented by: Furosemide (Furosemide 40 Mg/4 Ml Vial) 40 mg IV BID@1000,1800 [facility] Last Admin: 08/31/20 17:01 Dose: 40 mg Documented by: Guaifenesin (Guaifenesin 10 Ml Udc (200mg/10ml)) 10 ml PO Q4H PRN PRN PRN Reason: COUGH Hydralazine HCl (Hydralazine 20 Mg/Ml Vial) 10 mg IV Q4H PRN PRN PRN Reason: SBP > 160 Sodium Chloride () 250 mls @ 15 mls/hr IV .[id number] PRN PRN Reason: Saline Flush Sodium Chloride () 250 mls @ 15 mls/hr IV .[id number] PRN PRN Reason: Additional IVPB Infusion Melatonin (Melatonin 3 Mg Tablet) 3 mg PO QHS [facility] Last Admin: 08/31/20 21:36 Dose: 3 mg Documented by: Nitroglycerin (Nitroglycerin (Inpatient Use) 0.4 Mg Tab.Subl) 0.4 mg SUBLINGUAL Q5M PRN PRN Reason: CARDIAC/CHEST PAIN Ondansetron HCl (Ondansetron 4 Mg/2 Ml Vial) 4 mg IV Q8H PRN PRN PRN Reason: NAUSEA/VOMITING Pantoprazole Sodium (Pantoprazole Sodium 40 Mg Tablet) 40 mg PO BID [facility] Last Admin: 08/31/20 21:36 Dose: 40 mg Documented by: Polyethylene Glycol (Polyethylene Glycol 3350 17 Gm Packet) 17 gm PO DAILY [facility] Last Admin: 08/31/20 08:10 Dose: 17 gm Documented by: Potassium Chloride (Potassium Chloride 20 Meq Tablet) 20 meq PO BID@1000,1700 [facility] Last Admin: 08/31/20 17:00 Dose: 20 meq Documented by: Pramipexole Dihydrochloride (Pramipexole Di-Hcl 1 Mg Tablet) 1.5 mg PO TID [facility] Last Admin: 09/01/20 06:27 Dose: 1.5 mg Documented by: Prochlorperazine Edisylate (Prochlorperazine 10 Mg/2 Ml Vial) 5 mg IV Q4H PRN PRN PRN Reason: Breakthrough Nausea/Vomiting Sodium Chloride (0.9% Saline Lock 10 Ml Syringe) 10 - 40 ml IV UD PRN PRN Reason: SALINE FLUSH Last Admin: 08/31/20 17:01 Dose: 10 ml Documented by: Tamsulosin HCl (Tamsulosin Hcl 0.4 Mg Capsule) 0.4 mg PO DAILY [facility] Last Admin: 08/31/20 08:09 Dose: 0.4 mg Documented by: Throat Lozenges (Benzocaine/Menthol 1 Lozenge) 1 lozenge MUCOUS MEM Q2H PRN PRN PRN Reason: SORE THROAT STROKE Vital Signs/Narrative: Vital Signs Temp Pulse Resp BP Pulse Ox 09/01/20 09:23 95 09/01/20 08:57 98.6 F 57 L 16 113/59 L 97 09/01/20 07:07 61 09/01/20 06:55 97 Medical Necessity - Tobacco Use Smoking Status: Former smoker - Patient quit cigarette tobacco usage and 2000 with prior to this 1 pack/day since he been a teenager. Tobacco Use: Non-smoker Assessment/Plan All Active Problems (Last Reviewed 01/16/20 @ 13:50 by Mary Luis PA, PA) Pneumonia due to COVID-19 virus (Acute) Hypoxia (Acute) Acute respiratory failure with hypoxia (Acute) GI bleed (Acute) Exertional angina (Acute) Dyspnea on exertion (Acute) History of coronary artery stent placement (Resolved 09/08/19) Blood in urine (Resolved) UTI (urinary tract infection) (Resolved) 1. Acute hypoxic respiratory failure secondary to acute COVID-19 pneumonia -Continue with Decadron, remdesivir's been completed -Continue with Lasix twice daily -Currently on 5-6 L nasal cannula -D-dimer is normal for age 2. CAD status post stent/PAD/HTN/HLD -Blood pressures are stable -We will continue with his home blood pressure medication -Continue with statin 3. Depression/anxiety -Stable -Continue with Celexa 4. BPH -Stable -Continue with Flomax and finasteride 5. Dark stools/GERD -Hemoglobin is stable, he does take iron -We will continue to monitor -Continue with PPI DVT: Lovenox Inpatient E&M: [id number] Subs Hosp L2
--- NOTE | 2020-09-01 10:01 | PN_ITS ---
Patient Problems: Active and Suspected Problems (Last Reviewed 01/16/20 @ 13:50 by Mary Luis PA, PA) Pneumonia due to COVID-19 virus (Acute) Hypoxia (Acute) Acute respiratory failure with hypoxia (Acute) GI bleed (Acute) Subjective: Patient did well overnight. No acute issues were reported. Patient feels subjectively improved compared to previous. Patient does state that it is easier to breathe with the nasal cannula than the Airvo. Patient is not reporting any significant production with this cough. - Physical Exam Vitals/I&O's: Vital Signs Temp Pulse Resp BP Pulse Ox 37.0 C 57 L 16 113/59 L 95 09/01/20 08:57 09/01/20 08:57 09/01/20 08:57 09/01/20 08:57 09/01/20 09:23 Oxygen Flow Rate (L/min) 5 Oxygen Delivery Method Nasal Cannula Weight: 86.1 kg Body Mass Index (BMI) 22.8 Intake and Output for Last 24 Hours 08/30/20 08/31/20 09/01/20 23:59 23:59 23:59 Intake Total 820 / 820 840 / 840 200 / 200 Output Total 2125 / 2125 1325 / 1325 575 / 575 Balance -1305 / -1305 -485 / -485 -375 / -375 General: Alert, Oriented x3, Cooperative, - - Mild conversational dyspnea. HEENT: Atraumatic, PERRLA, EOMI, Normocephalic, - - No scleral icterus or injection noted Oral: Moist Mucosa, No Gingival or Mucosal Lesions/ Ulcerations Neck: Supple, No JVD, No Nodes, Thyroid Normal Size and Texture Lungs: No rhonchi, No wheeze, No rales, Diminished, - - Symmetric expansion Cardiovascular: Regular rate, Regular Rhythm, Normal S1, Normal S2, No murmurs, No rub noted, No Gallop Abdomen: Bowel Sounds Present, Soft, Non Tender, Non-Distended Extremities: No clubbing, No cyanosis, No edema Skin: No rashes, No breakdown Musculoskeletal: No Tenderness to Palpation of Joints or Extremities Lymphatic: No Cervical, Supraclavicular, or Inguinal Adenopathy Neurological: Cranial nerves II-XII grossly intact, Neuro grossly intact, Motor Exam 5/5 strength throughout Psych/Mental Status: Alert and oriented to time, place, person, mood and affect Microbiology Past 72 Hours 08/25/20 19:34 Blood Culture (Wb) - Anticubital Left Blood Culture - Final No growth in 5 days. 08/25/20 18:50 Blood Culture (Wb) - Anticubital Right Blood Culture - Final No growth in 5 days. Laboratory Results 09/01/20 06:20: WBC 15.7 H, RBC 5.23, Hgb 15.1, Hct 45.5, MCV 87.0, MCH 28.9, MCHC 33.2, RDW Std Deviation 45.7 H, RDW Coeff of Jihan 14.3, Plt Count 259, MPV 10.7 09/01/20 06:20: Sodium 136, Potassium 3.7, Chloride 102, Carbon Dioxide 31.0, Anion Gap 3 L, BUN 43 H, Creatinine 0.99, Estim Creat Clear Calc 59.40, Est GFR (MDRD) Af Amer 93, Est GFR (MDRD) Non-Af 77, BUN/Creatinine Ratio 43.3 H, Glucose 107 H, Calcium 9.0 Current Medications Acetaminophen (Acetaminophen 325 Mg Tablet) 650 mg PO Q6H PRN PRN PRN Reason: Pain Score 1-10/Temp > 100.7 F Last Admin: 08/30/20 11:34 Dose: 650 mg Documented by: Al Hydroxide/Mg Hydroxide (Mag Hydrox/Al Hydrox/Simeth 30 Ml Udc) 30 ml PO Q6H PRN PRN PRN Reason: Gastric Burning Albuterol Sulfate (Albuterol Ih 8.5 Gm (Proair) Inhaler (200 Puffs)) 4 - 8 puff INHALATION Q4H PRN PRN PRN Reason: Dyspnea, wheezing Amlodipine Besylate (Amlodipine 10 Mg Tablet) 10 mg PO DAILY [facility] Last Admin: 08/31/20 08:11 Dose: 10 mg Documented by: Atorvastatin Calcium (Atorvastatin Calcium 10 Mg Tablet) 10 mg PO DAILY [facility] Last Admin: 08/31/20 08:09 Dose: 10 mg Documented by: Citalopram Hydrobromide (Citalopram 20 Mg Tablet) 20 mg PO DAILY [facility] Last Admin: 08/31/20 08:08 Dose: 20 mg Documented by: Dexamethasone Sodium Phosphate (Dexamethasone 4 Mg/Ml Vial) 6 mg IV DAILY [facility] Stop: 09/04/20 10:01 Last Admin: 08/31/20 08:12 Dose: 6 mg Documented by: Enoxaparin Sodium (Enoxaparin 30 Mg/0.3 Ml Syringe) 30 mg SC BID [facility] Last Admin: 08/31/20 21:36 Dose: 30 mg Documented by: Ferrous Sulfate (Ferrous Sulfate 325 Mg Tablet) 325 mg PO BID [facility] Last Admin: 08/31/20 21:36 Dose: 325 mg Documented by: Furosemide (Furosemide 40 Mg/4 Ml Vial) 40 mg IV BID@1000,1800 [facility] Last Admin: 08/31/20 17:01 Dose: 40 mg Documented by: Guaifenesin (Guaifenesin 10 Ml Udc (200mg/10ml)) 10 ml PO Q4H PRN PRN PRN Reason: COUGH Hydralazine HCl (Hydralazine 20 Mg/Ml Vial) 10 mg IV Q4H PRN PRN PRN Reason: SBP > 160 Sodium Chloride () 250 mls @ 15 mls/hr IV .[id number] PRN PRN Reason: Saline Flush Sodium Chloride () 250 mls @ 15 mls/hr IV .[id number] PRN PRN Reason: Additional IVPB Infusion Melatonin (Melatonin 3 Mg Tablet) 3 mg PO QHS [facility] Last Admin: 08/31/20 21:36 Dose: 3 mg Documented by: Nitroglycerin (Nitroglycerin (Inpatient Use) 0.4 Mg Tab.Subl) 0.4 mg SUBLINGUAL Q5M PRN PRN Reason: CARDIAC/CHEST PAIN Ondansetron HCl (Ondansetron 4 Mg/2 Ml Vial) 4 mg IV Q8H PRN PRN PRN Reason: NAUSEA/VOMITING Pantoprazole Sodium (Pantoprazole Sodium 40 Mg Tablet) 40 mg PO BID [facility] Last Admin: 08/31/20 21:36 Dose: 40 mg Documented by: Polyethylene Glycol (Polyethylene Glycol 3350 17 Gm Packet) 17 gm PO DAILY [facility] Last Admin: 08/31/20 08:10 Dose: 17 gm Documented by: Potassium Chloride (Potassium Chloride 20 Meq Tablet) 20 meq PO BID@1000,1700 [facility] Last Admin: 08/31/20 17:00 Dose: 20 meq Documented by: Pramipexole Dihydrochloride (Pramipexole Di-Hcl 1 Mg Tablet) 1.5 mg PO TID [facility] Last Admin: 09/01/20 06:27 Dose: 1.5 mg Documented by: Prochlorperazine Edisylate (Prochlorperazine 10 Mg/2 Ml Vial) 5 mg IV Q4H PRN PRN PRN Reason: Breakthrough Nausea/Vomiting Sodium Chloride (0.9% Saline Lock 10 Ml Syringe) 10 - 40 ml IV UD PRN PRN Reason: SALINE FLUSH Last Admin: 08/31/20 17:01 Dose: 10 ml Documented by: Tamsulosin HCl (Tamsulosin Hcl 0.4 Mg Capsule) 0.4 mg PO DAILY [facility] Last Admin: 08/31/20 08:09 Dose: 0.4 mg Documented by: Throat Lozenges (Benzocaine/Menthol 1 Lozenge) 1 lozenge MUCOUS MEM Q2H PRN PRN PRN Reason: SORE THROAT Medical Necessity - Tobacco Use Smoking Status: Former smoker - Patient quit cigarette tobacco usage and 2000 with prior to this 1 pack/day since he been a teenager. Tobacco Use: Non-smoker Assessment/Plan All Active Problems (Last Reviewed 01/16/20 @ 13:50 by Mary KING, PA) Pneumonia due to COVID-19 virus (Acute) Hypoxia (Acute) Acute respiratory failure with hypoxia (Acute) GI bleed (Acute) Exertional angina (Acute) Dyspnea on exertion (Acute) History of coronary artery stent placement (Resolved 09/08/19) Blood in urine (Resolved) UTI (urinary tract infection) (Resolved) RECOMMENDATIONS: 1. Continue low flow nasal cannula and wean FiO2 to maintain oxygen saturations at or above 90%. 2. Continue scheduled IV diuretic therapy as tolerated by hemodynamics and renal function. 3. Continue Decadron to complete 10-day treatment course. 4. Completed remdesivir. 5. Continue twice daily PPI therapy. 6. Potassium repletion as indicated by daily labs. 7. Potentially able to go to ECF soon, but will need to ambulate on 6 L or less to be discharged home IMPRESSIONS: 1. Acute hypoxemic respiratory failure secondary to COVID-19 pneumonia Plan to continue current supportive measures including supplemental oxygen to maintain saturations at or above 90%. Continue Decadron with plans to complete a 10-day treatment course. Remdesivir has been completed. No need to follow liver and renal function from a medication standpoint. However, patient is receiving diuretics. Encourage incentive spirometer use and mobilize patient as tolerated. We will continue with Lasix twice daily as he appears to be tolerating this treatment for now. 2. History of coronary artery disease status post PCI Continue baseline outpatient cardiac medications. 3. Hypokalemia Appears to be appropriate at this time. Electrolyte repletion as located. Recheck levels in the morning. 4. Advanced age/BPH/hypertension/hyperlipidemia/peripheral vascular disease Complicates care, management, recovery and prognosis. Continue home medications as indicated. CODE STATUS confirmed to be DNR CCA without intubation. Inpatient E&M: 94221 Subs Hosp L2
[2020-09-01] MEDS: Citalopram 20 MG Tablet PO (10:48)
[2020-09-01] MEDS: dexAMETHasone 4 MG/ML Vial 6 MG IV (10:48)
[2020-09-01] MEDS: Tamsulosin HCl 0.4 MG Capsule PO (10:48)
[2020-09-01] MEDS: Ferrous Sulfate 325 MG Tablet PO ×2 (10:49→21:42)
[2020-09-01] MEDS: amLODIPine 10 MG Tablet PO (10:49)
[2020-09-01] MEDS: Enoxaparin 30 MG/0.3 ML Syringe SC ×2 (10:49→21:43)
[2020-09-01] MEDS: Atorvastatin Calcium 10 MG Tablet PO (10:49)
[2020-09-01] MEDS: Furosemide 40 MG/4 ML Vial IV ×2 (10:49→16:58)
[2020-09-01] MEDS: Pantoprazole Sodium 40 MG Tablet PO ×2 (10:49→21:41)
--- NOTE | 2020-09-01 11:39 | CASEMGMT ---
Social Work SW received call from Pt Katina who is concerned that pt may need a SNF at time of discharge. SW reviewed therapy notes and oxygen needs with and informed that per physician pt is not ready for discharge today. SW reviewed list of SNF providers consistent with the patient's preferred geographic region, medical needs and insurance network. After review of information pt preferred provider is [facility]. At this time, need for SNF is not confirmed. SW informed that SW will touch base with pt and tomorrow to further discuss d/c needs as functionality in therapy and oxygen needs are monitored. Phone call to Barbie at [facility] and they do have many open beds on Covid unit. SW will hold off on sending referral at this time and will continue to follow for d/c planning. Plan: SNF vs. Home with Home Health. [facility]
--- NOTE | 2020-09-01 13:20 | PCM.PN.ID ---
Patient Problems: Active and Suspected Problems (Last Reviewed 01/16/20 @ 13:50 by Mary Luis PA, PA) Pneumonia due to COVID-19 virus (Acute) Hypoxia (Acute) Acute respiratory failure with hypoxia (Acute) GI bleed (Acute) Subjective: Feeling better, breathing better, no fever, doing well at home - Physical Exam Vitals/I&O's: Vital Signs Temp Pulse Resp BP Pulse Ox 98.6 F 57 L 16 113/59 L 95 09/01/20 08:57 09/01/20 08:57 09/01/20 08:57 09/01/20 08:57 09/01/20 09:23 Oxygen Flow Rate (L/min) 5 Oxygen Delivery Method Nasal Cannula Weight: 86.1 kg Body Mass Index (BMI) 22.8 Intake and Output for Last 24 Hours 08/30/20 08/31/20 09/01/20 23:59 23:59 23:59 Intake Total 820 / 820 840 / 840 200 / 200 Output Total 2125 / 2125 1325 / 1325 575 / 575 Balance -1305 / -1305 -485 / -485 -375 / -375 General: Alert, Cooperative, No apparent distress Lungs: Clear to auscultation, Normal air movement Cardiovascular: Regular rate, Regular Rhythm Abdomen: Soft, Non Tender, Non-Distended Skin: No rashes Microbiology Past 72 Hours 08/25/20 19:34 Blood Culture (Wb) - Anticubital Left Blood Culture - Final No growth in 5 days. 08/25/20 18:50 Blood Culture (Wb) - Anticubital Right Blood Culture - Final No growth in 5 days. Laboratory Results 09/01/20 06:20: WBC 15.7 H, RBC 5.23, Hgb 15.1, Hct 45.5, MCV 87.0, MCH 28.9, MCHC 33.2, RDW Std Deviation 45.7 H, RDW Coeff of Jihan 14.3, Plt Count 259, MPV 10.7 09/01/20 06:20: Sodium 136, Potassium 3.7, Chloride 102, Carbon Dioxide 31.0, Anion Gap 3 L, BUN 43 H, Creatinine 0.99, Estim Creat Clear Calc 59.40, Est GFR (MDRD) Af Amer 93, Est GFR (MDRD) Non-Af 77, BUN/Creatinine Ratio 43.3 H, Glucose 107 H, Calcium 9.0 Current Medications Acetaminophen (Acetaminophen 325 Mg Tablet) 650 mg PO Q6H PRN PRN PRN Reason: Pain Score 1-10/Temp > 100.7 F Last Admin: 08/30/20 11:34 Dose: 650 mg Documented by: Al Hydroxide/Mg Hydroxide (Mag Hydrox/Al Hydrox/Simeth 30 Ml Udc) 30 ml PO Q6H PRN PRN PRN Reason: Gastric Burning Albuterol Sulfate (Albuterol Ih 8.5 Gm (Proair) Inhaler (200 Puffs)) 4 - 8 puff INHALATION Q4H PRN PRN PRN Reason: Dyspnea, wheezing Amlodipine Besylate (Amlodipine 10 Mg Tablet) 10 mg PO DAILY [facility] Last Admin: 09/01/20 10:49 Dose: 10 mg Documented by: Atorvastatin Calcium (Atorvastatin Calcium 10 Mg Tablet) 10 mg PO DAILY [facility] Last Admin: 09/01/20 10:49 Dose: 10 mg Documented by: Citalopram Hydrobromide (Citalopram 20 Mg Tablet) 20 mg PO DAILY [facility] Last Admin: 09/01/20 10:48 Dose: 20 mg Documented by: Dexamethasone Sodium Phosphate (Dexamethasone 4 Mg/Ml Vial) 6 mg IV DAILY [facility] Stop: 09/04/20 10:01 Last Admin: 09/01/20 10:48 Dose: 6 mg Documented by: Enoxaparin Sodium (Enoxaparin 30 Mg/0.3 Ml Syringe) 30 mg SC BID [facility] Last Admin: 09/01/20 10:49 Dose: 30 mg Documented by: Ferrous Sulfate (Ferrous Sulfate 325 Mg Tablet) 325 mg PO BID [facility] Last Admin: 09/01/20 10:49 Dose: 325 mg Documented by: Furosemide (Furosemide 40 Mg/4 Ml Vial) 40 mg IV BID@1000,1800 [facility] Last Admin: 09/01/20 10:49 Dose: 40 mg Documented by: Guaifenesin (Guaifenesin 10 Ml Udc (200mg/10ml)) 10 ml PO Q4H PRN PRN PRN Reason: COUGH Hydralazine HCl (Hydralazine 20 Mg/Ml Vial) 10 mg IV Q4H PRN PRN PRN Reason: SBP > 160 Sodium Chloride () 250 mls @ 15 mls/hr IV .[id number] PRN PRN Reason: Saline Flush Sodium Chloride () 250 mls @ 15 mls/hr IV .[id number] PRN PRN Reason: Additional IVPB Infusion Melatonin (Melatonin 3 Mg Tablet) 3 mg PO QHS [facility] Last Admin: 08/31/20 21:36 Dose: 3 mg Documented by: Nitroglycerin (Nitroglycerin (Inpatient Use) 0.4 Mg Tab.Subl) 0.4 mg SUBLINGUAL Q5M PRN PRN Reason: CARDIAC/CHEST PAIN Ondansetron HCl (Ondansetron 4 Mg/2 Ml Vial) 4 mg IV Q8H PRN PRN PRN Reason: NAUSEA/VOMITING Pantoprazole Sodium (Pantoprazole Sodium 40 Mg Tablet) 40 mg PO BID [facility] Last Admin: 09/01/20 10:49 Dose: 40 mg Documented by: Polyethylene Glycol (Polyethylene Glycol 3350 17 Gm Packet) 17 gm PO DAILY [facility] Last Admin: 09/01/20 10:49 Dose: Not Given Documented by: Potassium Chloride (Potassium Chloride 20 Meq Tablet) 20 meq PO BID@1000,1700 [facility] Last Admin: 09/01/20 10:49 Dose: 20 meq Documented by: Pramipexole Dihydrochloride (Pramipexole Di-Hcl 1 Mg Tablet) 1.5 mg PO TID [facility] Last Admin: 09/01/20 06:27 Dose: 1.5 mg Documented by: Prochlorperazine Edisylate (Prochlorperazine 10 Mg/2 Ml Vial) 5 mg IV Q4H PRN PRN PRN Reason: Breakthrough Nausea/Vomiting Sodium Chloride (0.9% Saline Lock 10 Ml Syringe) 10 - 40 ml IV UD PRN PRN Reason: SALINE FLUSH Last Admin: 08/31/20 17:01 Dose: 10 ml Documented by: Tamsulosin HCl (Tamsulosin Hcl 0.4 Mg Capsule) 0.4 mg PO DAILY [facility] Last Admin: 09/01/20 10:48 Dose: 0.4 mg Documented by: Throat Lozenges (Benzocaine/Menthol 1 Lozenge) 1 lozenge MUCOUS MEM Q2H PRN PRN PRN Reason: SORE THROAT Medical Necessity - Tobacco Use Smoking Status: Former smoker - Patient quit cigarette tobacco usage and 2000 with prior to this 1 pack/day since he been a teenager. Tobacco Use: Non-smoker Route of nutrition/ use of supplements: [] Nutritional Intake: [] IV Site: [] Aguilar Catheter: [] - Assessment/Plan Antibiotics: [] Assessment/Plan: [] Active and Suspected Problems (Last Reviewed 01/16/20 @ 13:50 by Mary Luis PA, PA) Pneumonia due to COVID-19 virus (Acute) Hypoxia (Acute) Acute respiratory failure with hypoxia (Acute) GI bleed (Acute) covid with hypoxia - sx started around 08/20/20. D-dimer 0.5. On dex, completed remdesivir. Lovenox 30mg bid ordered. Plan on 20 days of quarantine from 08/20. 10 days of dex total. also admitted with covid, now discharged. O2 much improved. Will follow
[2020-09-01] MEDS: 0.9% Saline Lock 10 ML Syringe IV (16:58)
[2020-09-01] MEDS: MELATONIN 3 MG TABLET PO (21:42)
[2020-09-02] VITALS (10 sets, daily range): BP systolic 113–120; BP diastolic 57–64; PULSE 59–71; RESP 18; TEMP 36.2–36.6; O2SAT 92–98
--- NOTE | 2020-09-02 00:43 | CPS ---
offered patient bipap for night time, patient declined on 09/01/2020
[2020-09-02] MEDS: Pramipexole Di-HCl 1 MG Tablet 1.5 MG PO ×2 (05:15→13:50)
--- NOTE | 2020-09-02 06:51 | PCM.PN.PUL ---
Patient Problems: Active and Suspected Problems (Last Reviewed 01/16/20 @ 13:50 by Mary Luis PA, PA) Pneumonia due to COVID-19 virus (Acute) Hypoxia (Acute) Acute respiratory failure with hypoxia (Acute) GI bleed (Acute) Subjective: Patient did well overnight. No acute issues were reported. Patient feels subjectively improved compared to previous. Patient has been able to get up on his own to use the bathroom. No orthostatic symptoms have been reported. Patient still has a cough with minimal production. - Physical Exam Vitals/I&O's: Vital Signs Temp Pulse Resp BP Pulse Ox 36.6 C 65 18 113/57 L 95 09/02/20 03:49 09/02/20 03:49 09/02/20 03:52 09/02/20 03:49 09/02/20 05:45 Oxygen Flow Rate (L/min) 4 Oxygen Delivery Method Nasal Cannula Weight: 86.1 kg Body Mass Index (BMI) 22.8 Intake and Output for Last 24 Hours 08/31/20 09/01/20 09/02/20 23:59 23:59 23:59 Intake Total 840 / 840 200 / 200 Output Total 1325 / 1325 875 / 875 Balance -485 / -485 -675 / -675 General: Alert, Oriented x3, Cooperative, No apparent distress, - - Hard of hearing. Appears stated age. HEENT: Atraumatic, PERRLA, EOMI, Normocephalic, - - No scleral icterus or injection noted Oral: Moist Mucosa, No Gingival or Mucosal Lesions/ Ulcerations Neck: Supple, No JVD, No Nodes, Trachea Midline Lungs: No rhonchi, No wheeze, No rales, Diminished Cardiovascular: Regular rate, Regular Rhythm, Normal S1, Normal S2, Murmur, No rub noted, No Gallop Abdomen: Bowel Sounds Present, Soft, Non Tender, Non-Distended Extremities: No clubbing, No cyanosis, No edema, Capillary Refill Less than 3 Seconds Skin: No rashes, No breakdown Musculoskeletal: No Tenderness to Palpation of Joints or Extremities Lymphatic: No Cervical, Supraclavicular, or Inguinal Adenopathy Neurological: Cranial nerves II-XII grossly intact, Neuro grossly intact Psych/Mental Status: Alert and oriented to time, place, person, mood and affect Microbiology Past 72 Hours 08/25/20 19:34 Blood Culture (Wb) - Anticubital Left Blood Culture - Final No growth in 5 days. 08/25/20 18:50 Blood Culture (Wb) - Anticubital Right Blood Culture - Final No growth in 5 days. Laboratory Results 09/01/20 06:20: Sodium 136, Potassium 3.7, Chloride 102, Carbon Dioxide 31.0, Anion Gap 3 L, BUN 43 H, Creatinine 0.99, Estim Creat Clear Calc 59.40, Est GFR (MDRD) Af Amer 93, Est GFR (MDRD) Non-Af 77, BUN/Creatinine Ratio 43.3 H, Glucose 107 H, Calcium 9.0 Current Medications Acetaminophen (Acetaminophen 325 Mg Tablet) 650 mg PO Q6H PRN PRN PRN Reason: Pain Score 1-10/Temp > 100.7 F Last Admin: 08/30/20 11:34 Dose: 650 mg Documented by: Al Hydroxide/Mg Hydroxide (Mag Hydrox/Al Hydrox/Simeth 30 Ml Udc) 30 ml PO Q6H PRN PRN PRN Reason: Gastric Burning Albuterol Sulfate (Albuterol Ih 8.5 Gm (Proair) Inhaler (200 Puffs)) 4 - 8 puff INHALATION Q4H PRN PRN PRN Reason: Dyspnea, wheezing Last Admin: 09/02/20 03:55 Dose: 4 puff Documented by: Amlodipine Besylate (Amlodipine 10 Mg Tablet) 10 mg PO DAILY [facility] Last Admin: 09/01/20 10:49 Dose: 10 mg Documented by: Atorvastatin Calcium (Atorvastatin Calcium 10 Mg Tablet) 10 mg PO DAILY [facility] Last Admin: 09/01/20 10:49 Dose: 10 mg Documented by: Citalopram Hydrobromide (Citalopram 20 Mg Tablet) 20 mg PO DAILY [facility] Last Admin: 09/01/20 10:48 Dose: 20 mg Documented by: Dexamethasone Sodium Phosphate (Dexamethasone 4 Mg/Ml Vial) 6 mg IV DAILY [facility] Stop: 09/04/20 10:01 Last Admin: 09/01/20 10:48 Dose: 6 mg Documented by: Enoxaparin Sodium (Enoxaparin 30 Mg/0.3 Ml Syringe) 30 mg SC BID [facility] Last Admin: 09/01/20 21:43 Dose: 30 mg Documented by: Ferrous Sulfate (Ferrous Sulfate 325 Mg Tablet) 325 mg PO BID [facility] Last Admin: 09/01/20 21:42 Dose: 325 mg Documented by: Furosemide (Furosemide 40 Mg/4 Ml Vial) 40 mg IV BID@1000,1800 [facility] Last Admin: 09/01/20 16:58 Dose: 40 mg Documented by: Guaifenesin (Guaifenesin 10 Ml Udc (200mg/10ml)) 10 ml PO Q4H PRN PRN PRN Reason: COUGH Hydralazine HCl (Hydralazine 20 Mg/Ml Vial) 10 mg IV Q4H PRN PRN PRN Reason: SBP > 160 Sodium Chloride () 250 mls @ 15 mls/hr IV .[id number] PRN PRN Reason: Saline Flush Sodium Chloride () 250 mls @ 15 mls/hr IV .[id number] PRN PRN Reason: Additional IVPB Infusion Melatonin (Melatonin 3 Mg Tablet) 3 mg PO QHS [facility] Last Admin: 09/01/20 21:42 Dose: 3 mg Documented by: Nitroglycerin (Nitroglycerin (Inpatient Use) 0.4 Mg Tab.Subl) 0.4 mg SUBLINGUAL Q5M PRN PRN Reason: CARDIAC/CHEST PAIN Ondansetron HCl (Ondansetron 4 Mg/2 Ml Vial) 4 mg IV Q8H PRN PRN PRN Reason: NAUSEA/VOMITING Pantoprazole Sodium (Pantoprazole Sodium 40 Mg Tablet) 40 mg PO BID [facility] Last Admin: 09/01/20 21:41 Dose: 40 mg Documented by: Polyethylene Glycol (Polyethylene Glycol 3350 17 Gm Packet) 17 gm PO DAILY [facility] Last Admin: 09/01/20 10:49 Dose: Not Given Documented by: Potassium Chloride (Potassium Chloride 20 Meq Tablet) 20 meq PO BID@1000,1700 [facility] Last Admin: 09/01/20 16:58 Dose: 20 meq Documented by: Pramipexole Dihydrochloride (Pramipexole Di-Hcl 1 Mg Tablet) 1.5 mg PO TID [facility] Last Admin: 09/02/20 05:15 Dose: 1.5 mg Documented by: Prochlorperazine Edisylate (Prochlorperazine 10 Mg/2 Ml Vial) 5 mg IV Q4H PRN PRN PRN Reason: Breakthrough Nausea/Vomiting Sodium Chloride (0.9% Saline Lock 10 Ml Syringe) 10 - 40 ml IV UD PRN PRN Reason: SALINE FLUSH Last Admin: 09/01/20 16:58 Dose: 10 ml Documented by: Tamsulosin HCl (Tamsulosin Hcl 0.4 Mg Capsule) 0.4 mg PO DAILY [facility] Last Admin: 09/01/20 10:48 Dose: 0.4 mg Documented by: Throat Lozenges (Benzocaine/Menthol 1 Lozenge) 1 lozenge MUCOUS MEM Q2H PRN PRN PRN Reason: SORE THROAT Medical Necessity - Tobacco Use Smoking Status: Former smoker - Patient quit cigarette tobacco usage and 2000 with prior to this 1 pack/day since he been a teenager. Tobacco Use: Non-smoker Assessment/Plan All Active Problems (Last Reviewed 01/16/20 @ 13:50 by Mary Luis PA, PA) Pneumonia due to COVID-19 virus (Acute) Hypoxia (Acute) Acute respiratory failure with hypoxia (Acute) GI bleed (Acute) Exertional angina (Acute) Dyspnea on exertion (Acute) History of coronary artery stent placement (Resolved 09/08/19) Blood in urine (Resolved) UTI (urinary tract infection) (Resolved) RECOMMENDATIONS: 1. Continue low flow nasal cannula and wean FiO2 to maintain oxygen saturations at or above 90%. 2. Continue scheduled IV diuretic therapy as tolerated by hemodynamics and renal function. Recheck BMP tomorrow if continues to be admitted 3. Continue Decadron to complete 10-day treatment course. 4. Completed remdesivir. 5. Continue twice daily PPI therapy. 6. Potassium repletion as indicated by daily labs. 7. Obtain walking oximetry. Potential discharge if able to tolerate 6 L or less IMPRESSIONS: 1. Acute hypoxemic respiratory failure secondary to COVID-19 pneumonia Plan to continue current supportive measures including supplemental oxygen to maintain saturations at or above 90%. Continue Decadron with plans to complete a 10-day treatment course. Remdesivir has been completed. No need to follow liver and renal function from a medication standpoint. However, patient is receiving diuretics. Encourage incentive spirometer use and mobilize patient as tolerated. We will continue with Lasix twice daily as he appears to be tolerating this treatment for now. Recheck BMP tomorrow. Walking oximetry today. Potential discharge if able to tolerate ambulation on 6 L or less. Patient would follow-up in our office in 4 weeks with nurse practitioner for evaluation of continued oxygen and lung function. 2. History of coronary artery disease status post PCI Continue baseline outpatient cardiac medications. 3. Hypokalemia Appears to be appropriate at this time. Electrolyte repletion as located. Recheck levels in the morning. 4. Advanced age/BPH/hypertension/hyperlipidemia/peripheral vascular disease Complicates care, management, recovery and prognosis. Continue home medications as indicated. CODE STATUS confirmed to be DNR CCA without intubation. Inpatient E&M: 20901 Subs Hosp L2
--- NOTE | 2020-09-02 07:21 | PCM.PN.HOSP ---
Patient Problems: Active and Suspected Problems (Last Reviewed 01/16/20 @ 13:50 by Mary Luis PA, PA) Pneumonia due to COVID-19 virus (Acute) Hypoxia (Acute) Acute respiratory failure with hypoxia (Acute) GI bleed (Acute) Subjective: Doing well, no issues overnight. His oxygen requirement went down to 4 L today Vitals/I&O's: Vital Signs Temp Pulse Resp BP Pulse Ox 97.8 F 65 18 113/57 L 95 09/02/20 03:49 09/02/20 03:49 09/02/20 03:52 09/02/20 03:49 09/02/20 05:45 Oxygen Flow Rate (L/min) 4 Oxygen Delivery Method Nasal Cannula Weight: 193 lb 1.999 oz Body Mass Index (BMI) 22.8 Intake and Output for Last 24 Hours 08/31/20 09/01/20 09/02/20 23:59 23:59 23:59 Intake Total 840 / 840 200 / 200 Output Total 1325 / 1325 875 / 875 Balance -485 / -485 -675 / -675 General: Alert, Oriented x3, Cooperative, No apparent distress HEENT: Atraumatic, PERRLA, EOMI, Normocephalic Oral: Moist Mucosa Neck: Supple, No JVD Lungs: Normal air movement, No rhonchi, No wheeze, no rales, diminished, Cardiovascular: Regular rate, Regular Rhythm, Normal S1, Normal S2, No murmurs Abdomen: Soft, Non Tender, Non-Distended, No Hepato-splenomegaly Extremities: No edema, Capillary Refill Less than 3 Seconds Skin: No rashes, No breakdown Neurological: Neuro grossly intact, Sensory exam intact to light touch and pain Psych/Mental Status: Normal Affect, Appropriate Microbiology Past 72 Hours 08/25/20 19:34 Blood Culture (Wb) - Anticubital Left Blood Culture - Final No growth in 5 days. 08/25/20 18:50 Blood Culture (Wb) - Anticubital Right Blood Culture - Final No growth in 5 days. Current Medications Acetaminophen (Acetaminophen 325 Mg Tablet) 650 mg PO Q6H PRN PRN PRN Reason: Pain Score 1-10/Temp > 100.7 F Last Admin: 08/30/20 11:34 Dose: 650 mg Documented by: Al Hydroxide/Mg Hydroxide (Mag Hydrox/Al Hydrox/Simeth 30 Ml Udc) 30 ml PO Q6H PRN PRN PRN Reason: Gastric Burning Albuterol Sulfate (Albuterol Ih 8.5 Gm (Proair) Inhaler (200 Puffs)) 4 - 8 puff INHALATION Q4H PRN PRN PRN Reason: Dyspnea, wheezing Last Admin: 09/02/20 03:55 Dose: 4 puff Documented by: Amlodipine Besylate (Amlodipine 10 Mg Tablet) 10 mg PO DAILY [facility] Last Admin: 09/01/20 10:49 Dose: 10 mg Documented by: Atorvastatin Calcium (Atorvastatin Calcium 10 Mg Tablet) 10 mg PO DAILY [facility] Last Admin: 09/01/20 10:49 Dose: 10 mg Documented by: Citalopram Hydrobromide (Citalopram 20 Mg Tablet) 20 mg PO DAILY [facility] Last Admin: 09/01/20 10:48 Dose: 20 mg Documented by: Dexamethasone Sodium Phosphate (Dexamethasone 4 Mg/Ml Vial) 6 mg IV DAILY [facility] Stop: 09/04/20 10:01 Last Admin: 09/01/20 10:48 Dose: 6 mg Documented by: Enoxaparin Sodium (Enoxaparin 30 Mg/0.3 Ml Syringe) 30 mg SC BID [facility] Last Admin: 09/01/20 21:43 Dose: 30 mg Documented by: Ferrous Sulfate (Ferrous Sulfate 325 Mg Tablet) 325 mg PO BID [facility] Last Admin: 09/01/20 21:42 Dose: 325 mg Documented by: Furosemide (Furosemide 40 Mg/4 Ml Vial) 40 mg IV BID@1000,1800 [facility] Last Admin: 09/01/20 16:58 Dose: 40 mg Documented by: Guaifenesin (Guaifenesin 10 Ml Udc (200mg/10ml)) 10 ml PO Q4H PRN PRN PRN Reason: COUGH Hydralazine HCl (Hydralazine 20 Mg/Ml Vial) 10 mg IV Q4H PRN PRN PRN Reason: SBP > 160 Sodium Chloride () 250 mls @ 15 mls/hr IV .[id number] PRN PRN Reason: Saline Flush Sodium Chloride () 250 mls @ 15 mls/hr IV .[id number] PRN PRN Reason: Additional IVPB Infusion Melatonin (Melatonin 3 Mg Tablet) 3 mg PO QHS [facility] Last Admin: 09/01/20 21:42 Dose: 3 mg Documented by: Nitroglycerin (Nitroglycerin (Inpatient Use) 0.4 Mg Tab.Subl) 0.4 mg SUBLINGUAL Q5M PRN PRN Reason: CARDIAC/CHEST PAIN Ondansetron HCl (Ondansetron 4 Mg/2 Ml Vial) 4 mg IV Q8H PRN PRN PRN Reason: NAUSEA/VOMITING Pantoprazole Sodium (Pantoprazole Sodium 40 Mg Tablet) 40 mg PO BID [facility] Last Admin: 09/01/20 21:41 Dose: 40 mg Documented by: Polyethylene Glycol (Polyethylene Glycol 3350 17 Gm Packet) 17 gm PO DAILY [facility] Last Admin: 09/01/20 10:49 Dose: Not Given Documented by: Potassium Chloride (Potassium Chloride 20 Meq Tablet) 20 meq PO BID@1000,1700 [facility] Last Admin: 09/01/20 16:58 Dose: 20 meq Documented by: Pramipexole Dihydrochloride (Pramipexole Di-Hcl 1 Mg Tablet) 1.5 mg PO TID [facility] Last Admin: 09/02/20 05:15 Dose: 1.5 mg Documented by: Prochlorperazine Edisylate (Prochlorperazine 10 Mg/2 Ml Vial) 5 mg IV Q4H PRN PRN PRN Reason: Breakthrough Nausea/Vomiting Sodium Chloride (0.9% Saline Lock 10 Ml Syringe) 10 - 40 ml IV UD PRN PRN Reason: SALINE FLUSH Last Admin: 09/01/20 16:58 Dose: 10 ml Documented by: Tamsulosin HCl (Tamsulosin Hcl 0.4 Mg Capsule) 0.4 mg PO DAILY [facility] Last Admin: 09/01/20 10:48 Dose: 0.4 mg Documented by: Throat Lozenges (Benzocaine/Menthol 1 Lozenge) 1 lozenge MUCOUS MEM Q2H PRN PRN PRN Reason: SORE THROAT STROKE Vital Signs/Narrative: Vital Signs Temp Pulse Resp BP Pulse Ox 09/02/20 05:45 95 09/02/20 03:52 18 09/02/20 03:49 97.8 F 65 18 113/57 L 96 Medical Necessity - Tobacco Use Smoking Status: Former smoker - Patient quit cigarette tobacco usage and 2000 with prior to this 1 pack/day since he been a teenager. Tobacco Use: Non-smoker Assessment/Plan All Active Problems (Last Reviewed 01/16/20 @ 13:50 by Mary Luis PA, PA) Pneumonia due to COVID-19 virus (Acute) Hypoxia (Acute) Acute respiratory failure with hypoxia (Acute) GI bleed (Acute) Exertional angina (Acute) Dyspnea on exertion (Acute) History of coronary artery stent placement (Resolved 09/08/19) Blood in urine (Resolved) UTI (urinary tract infection) (Resolved) 1. Acute hypoxic respiratory failure secondary to acute COVID-19 pneumonia -Continue with Decadron, remdesivir's been completed -Continue with Lasix twice daily -Currently on 4 L nasal cannula, will plan an ambulatory pulse ox today -D-dimer is normal for age 2. CAD status post stent/PAD/HTN/HLD -Blood pressures are stable -We will continue with his home blood pressure medication -Continue with statin 3. Depression/anxiety -Stable -Continue with Celexa 4. BPH -Stable -Continue with Flomax and finasteride 5. Dark stools/GERD -Hemoglobin is stable, he does take iron -We will continue to monitor -Continue with PPI DVT: Lovenox Inpatient E&M: 58788 Subs Hosp L2
[2020-09-02] MEDS: amLODIPine 10 MG Tablet PO (09:14)
[2020-09-02] MEDS: Polyethylene Glycol 3350 17 GM PACKET PO (09:14)
[2020-09-02] MEDS: Enoxaparin 30 MG/0.3 ML Syringe SC (09:14)
[2020-09-02] MEDS: Furosemide 40 MG/4 ML Vial IV (09:15)
[2020-09-02] MEDS: Ferrous Sulfate 325 MG Tablet PO (09:15)
[2020-09-02] MEDS: Atorvastatin Calcium 10 MG Tablet PO (09:15)
[2020-09-02] MEDS: dexAMETHasone 4 MG/ML Vial 6 MG IV (09:15)
[2020-09-02] MEDS: Pantoprazole Sodium 40 MG Tablet PO (09:15)
[2020-09-02] MEDS: Tamsulosin HCl 0.4 MG Capsule PO (09:15)
[2020-09-02] MEDS: Citalopram 20 MG Tablet PO (09:16)
--- NOTE | 2020-09-02 11:27 | DCINST_ITS ---
- Discharge Diagnoses Current Active Problems: Current Active and Chronic Problems (Last Reviewed 01/16/20 @ 13:50 by Mary Luis PA, PA) Pneumonia due to COVID-19 virus (Acute) Hypoxia (Acute) Acute respiratory failure with hypoxia (Acute) BPH (benign prostatic hyperplasia) (Chronic) Chronic anemia (Chronic) Anxiety and depression (Chronic) GI bleed (Acute) Atherosclerosis of coronary artery of [place] without angina pectoris (Chronic) Essential (primary) hypertension (Chronic) Hyperlipidemia (Chronic) Peripheral vascular occlusive disease (Chronic) left lower extremity endovascular intervention with stenting You will use the following diet at home:: Cardiac Your food should be the consistency of: Regular Your liquids should be the consistency of: Regular/Thin Discharge Activity: Return to Normal Activity Call your doctor if you observe: Fever of 101 or Higher, Shortness of breath, Dizziness, Fainting spells, Swelling in the ankles, Chest pain, Increased palpitations (irregular heartbeat) Instructions: Coronavirus Disease 2019 (COVID-19): Overview, Coronavirus Disease 2019 (COVID-19): Caring for Yourself or Others Allergies/Adverse Reactions: Allergies Sulfa (Sulfonamide Antibiotics) Allergy (Verified 08/23/20 10:21) Rash lisinopril Adverse Reaction (Verified 08/23/20 10:21) Other cough Medications to take at Discharge Citalopram [Celexa] 20 mg PO DAILY 03/17/14 Omeprazole [Prilosec] 20 mg PO DAILY 03/17/14 Multivitamin [Daily Multiple Vitamin] 1 ea PO DAILY 05/16/17 amlodipine 10 mg tablet 10 mg PO DAILY tab 09/04/19 nitroglycerin 0.4 mg sublingual tablet 0.4 mg SUBLINGUAL Q5-15M tab 09/04/19 tamsulosin 0.4 mg capsule 0.4 mg PO DAILY cap 09/04/19 niacin 500 mg capsule,extended release 500 mg PO BID 09/16/19 hydrochlorothiazide 25 mg tablet 25 mg PO DAILY tab 01/16/20 metoprolol succinate 25 mg tablet,extended release 24 hr 25 mg PO DAILY tab 01/16/20 Ascorbic Acid [Vitamin C] 1,000 mg PO DAILY 01/18/20 Aspirin 81 mg PO DAILY 08/23/20 Ferrous Sulfate 325 mg PO BID 08/23/20 Mupirocin [Bactroban] 1 applic TOPICAL TID 08/23/20 Atorvastatin Calcium 10 mg PO DAILY 08/25/20 Clopidogrel Bisulfate [Clopidogrel] 75 mg PO DAILY 08/25/20 Finasteride 5 mg PO DAILY 08/26/20 Latanoprost/Pf [Latanoprost 0.005% Eye Drop] 1 drp EACH EYE QHS 08/26/20 Ropinirole HCl 4 mg PO TID 08/26/20 Dexamethasone [Decadron] 6 mg PO DAILY #0 09/02/20 Primary Care Physician: Brian Mackenzie III, MD [Primary Care Provider] - Please follow up with your Primary Care Physician in: 3-5 days Test Results: Test results from this visit will be discussed in further detail at your follow- up appointment, if applicable.
--- NOTE | 2020-09-02 12:00 | CASEMGMT ---
Social Work SW spoke with Physician, nursing and therapy. Pt ambulating in room at SBA 120ft without difficulty. Nurse reporting pt oxygen requirements are much improved. At this time pt does not require SNF placement and Physician stating pt can return home today. SW placed call to pt Katina and discussed discharged plans. Tano is agreeable for pt to return home today. Pt does have home oxygen through [employer] and she is concerned as she says it is not hooked up. PRITI explained that RNCM will contact [employer] and make sure oxygen issues are addressed today. Pt does have a pulse oximeter that assists with using. Pt is agreeable to home health services. PRITI attempted to provide list of Home Health providers that included quality and resource use date however Katina refused information and stated she did not care who the provider was as long as they were in network with insurance. Pt son will be transporting pt home and Katina requested a call be made to her when pt is ready and she will arrange for transportation. BEBA Lynch updated. LYNDON Parish
--- NOTE | 2020-09-02 12:04 | CASEMGMT ---
Addendum entered by Syed Interiano 09/02/20 20:45: 1240: Call placed to Ja @ [facility] and referral made for SN, PT/OT, and aide. Referral packet faxed to [facility] as well. Ja made aware pt is discharging today. He states they are able to accept pt. Call placed to pt's , Katina, and she was made aware [facility] able to accept pt. She was provided with [facility]'s phone number. She was also made aware [facility] is scheduled to come to her home today to address oxygen needs. She inquired about time they will be coming. Informed this ZACKARY VAZQUEZ does not know what time. She was provided with [facility] [place]'s phone number and she states she will contact them to find out. Pt has home O2 @ 3 L/M. Ambulatory pulse ox has been completed. Pt does not qualify for additional home O2 at this time. 1250: Discharge instructions faxed to [facility]. 1430: Discharge summary faxed to [facility]. Original Note: ZACKARY VAZQUEZ NOTE: Pt being discharged home. Call placed to [facility] [place] [facility] and she was made aware. She states they are scheduled to go to pt's home today to fill/assist with portable O2 tanks. Jeromy HERNANDES RN, CM
--- NOTE | 2020-09-02 15:26 | DS.PCM_ITS ---
Discharge Date and Diagnosis - Problem List Patient Problems: Active and Suspected Problems (Last Reviewed 01/16/20 @ 13:50 by Mary KING PA) Pneumonia due to COVID-19 virus (Acute) Hypoxia (Acute) Acute respiratory failure with hypoxia (Acute) GI bleed (Acute) Date of Admission: 08/25/20 Date of Discharge: 09/02/20 - Primary Discharge Diagnosis Acute Problems: Active Problems (Last Reviewed 01/16/20 @ 13:50 by Mary KING PA) Pneumonia due to COVID-19 virus (Acute) Hypoxia (Acute) Acute respiratory failure with hypoxia (Acute) GI bleed (Acute) - Secondary Discharge Diagnosis Chronic Problems: Chronic Problems (Last Reviewed 01/16/20 @ 13:50 by Mary KING PA) BPH (benign prostatic hyperplasia) (Chronic) Chronic anemia (Chronic) Anxiety and depression (Chronic) Atherosclerosis of coronary artery of [place] heart without angina pectoris (Chronic) Essential (primary) hypertension (Chronic) Hyperlipidemia (Chronic) Peripheral vascular occlusive disease (Chronic) left lower extremity endovascular intervention with stenting Hospital Course and Treatment Imaging Results: Clinical Impression(s) from Imaging Studies Chest X-Ray 08/25/20 19:05 IMPRESSION: Patchy airspace opacity in the mid to lower lung field which is worse when compared with the prior exam. This is consistent with pneumonia in this COVID positive patient. Electronically Signed: Ben Minaya MD at 19:17 EST Tel , Service support , Consults: ID Pulmonology Operations: None Procedures: None Summary of Care Provided: Per HPI: The patient is a 84 y/o M w/ PMHx: BPH, CAD s/p PCI mid LAD, PAD s/p LLE PCI, HTN, HLD, GERD, PVD, PAD, Anxiety and Depression who presents to the [facility] ED on 08/25/20 with history of diagnosis this past Sunday with Covid with ongoing symptoms for approximately 1 week including fever, chills, body aches, headaches, cough and dyspnea progressively worsening prompting ED return. He denies any nausea, emesis, abdominal cramping, diarrhea, alteration sense of taste or smell. He does state that over the last week he has had black appearing stools with no specific lightheadedness or dizziness but given they have not been resolving he also was concerned. Patient reportedly is on 3 L of oxygen which has been recently initiated and has been noting saturations in the high 70s for the last 24 hours. Work-up in the ED included T 98.6, heart rate 64, BP 135/50, respiratory rate 34, initially 83% on 3 L nasal cannula with improvement to 97% on a nonrebreather 10 L, CBC with WC 9.1, hemoglobin 14, platelet 173 with left shift and lymphopenia, CMP with sodium 133, BUN/creatinine 26/1.17, lactic acid 1.0, troponin less than 0.015, blood culture x2 pending per ED, blood type a negative, chest x-ray with patchy airspace opacity mid to lower lung pena worse compared to previously consistent with Covid pneumonia, EKG with sinus rhythm with no acute evidence of ischemia. In the ED patient initiated on Protonix drip as well as Decadron 6 mg IV x1. Patient with history of prior GI bleed with endoscopies 01/16 noted to be diverticular at that time. Hospital Course: 1. Acute hypoxic respiratory failure secondary to acute COVID-19 pneumonia- 84-year-old male presents to the hospital with about a week Covid symptoms including fevers, chills, body aches, headache, cough and progressively worsening dyspnea. His had been admitted with Covid and was discharged home and has been doing well. He was here for about 8 days and did have a period of worsening respiratory status. To be placed on BiPAP however he was able to be weaned off completely from oxygen by the day of discharge. He completed his course of remdesivir and will only need 2 more days of Decadron on discharge. He has been receiving IV Lasix to help with any fluid overload, and he is down about 2 L total. I do not think that he will need Lasix on discharge. Also his D-dimer is normal for age therefore I will not send him home on an anticoagulant. I discussed with him the plan for discharge today he expressed understanding of the risk and benefits of going home and would like to go home today. I expressed to him that he will need to continue with aggressive incentive spirometry at home, and that he will need to follow-up with his PCP in 3 to 5 days. 2. Coronary artery disease status post stent, peripheral artery disease, hypertension, hyperlipidemia, anxiety, depression are chronic medical conditions which complicate his care. His home medications were continued where appropriate Patient Problems: Active and Suspected Problems (Last Reviewed 01/16/20 @ 13:50 by Mary Luis PA, PA) Pneumonia due to COVID-19 virus (Acute) Hypoxia (Acute) Acute respiratory failure with hypoxia (Acute) GI bleed (Acute) - Physical Exam Vitals/I&O's: Vital Signs Temp Pulse Resp BP Pulse Ox 97.2 F L 71 18 120/64 93 09/02/20 13:51 09/02/20 13:51 09/02/20 13:51 09/02/20 13:51 09/02/20 13:51 Oxygen Flow Rate (L/min) 4 Oxygen Delivery Method Room Air Weight: 193 lb 1.999 oz Body Mass Index (BMI) 22.8 Intake and Output for Last 24 Hours 08/31/20 09/01/20 09/02/20 23:59 23:59 23:59 Intake Total 840 / 840 200 / 200 750 / 750 Output Total 1325 / 1325 875 / 875 500 / 500 Balance -485 / -485 -675 / -675 250 / 250 Microbiology Past 72 Hours 08/25/20 19:34 Blood Culture (Wb) - Anticubital Left Blood Culture - Final No growth in 5 days. 08/25/20 18:50 Blood Culture (Wb) - Anticubital Right Blood Culture - Final No growth in 5 days. Discharge Activity: Return to Normal Activity Call your doctor if you observe: Fever of 101 or Higher, Shortness of breath, D izziness, Fainting spells, Swelling in the ankles, Chest pain, Increased palpitations (irregular heartbeat) Home Medications: Medications to take at Discharge Citalopram [Celexa] 20 mg PO DAILY 03/17/14 Omeprazole [Prilosec] 20 mg PO DAILY 03/17/14 Multivitamin [Daily Multiple Vitamin] 1 ea PO DAILY 05/16/17 amlodipine 10 mg tablet 10 mg PO DAILY tab 09/04/19 nitroglycerin 0.4 mg sublingual tablet 0.4 mg SUBLINGUAL Q5-15M tab 09/04/19 tamsulosin 0.4 mg capsule 0.4 mg PO DAILY cap 09/04/19 niacin 500 mg capsule,extended release 500 mg PO BID 09/16/19 hydrochlorothiazide 25 mg tablet 25 mg PO DAILY tab 01/16/20 metoprolol succinate 25 mg tablet,extended release 24 hr 25 mg PO DAILY tab 01/16/20 Ascorbic Acid [Vitamin C] 1,000 mg PO DAILY 01/18/20 Aspirin 81 mg PO DAILY 08/23/20 Ferrous Sulfate 325 mg PO BID 08/23/20 Mupirocin [Bactroban] 1 applic TOPICAL TID 08/23/20 Atorvastatin Calcium 10 mg PO DAILY 08/25/20 Clopidogrel Bisulfate [Clopidogrel] 75 mg PO DAILY 08/25/20 Finasteride 5 mg PO DAILY 08/26/20 Latanoprost/Pf [Latanoprost 0.005% Eye Drop] 1 drp EACH EYE QHS 08/26/20 Ropinirole HCl 4 mg PO TID 08/26/20 Dexamethasone [Decadron] 6 mg PO DAILY #0 09/02/20 Primary Care Physician: Brian Mackenzie III, MD [Primary Care Provider] - Please follow up with your Primary Care Physician in: 3-5 days Patient Instructions: Coronavirus Disease 2019 (COVID-19): Overview, Coronavirus Disease 2019 (COVID-19): Caring for Yourself or Others Disposition: Home Minutes spent on discharge:: 35 Patient Condition:: Stable Medical Necessity - Tobacco Use Smoking Status: Former smoker - Patient quit cigarette tobacco usage and 2000 with prior to this 1 pack/day since he been a teenager. Tobacco Use: Non-smoker Meaningful Use Info Meaningful Use Diagnoses (Choose all that apply): None applicable Inpatient E&M: 64660 Disch Hosp
--- NOTE | 2020-09-03 15:13 | CASEMGMT ---
ZACKARY VAZQUEZ Discharge Follow-up Phone Call: KAYLIN: 15 Strata: 4 Call Date: 09/03/20 Discharge Date: 09/02/20 Time of Call: 1510 Duration: 5 min Admitting Diagnosis: Resp failure, covid ZACKARY VAZQUEZ completed follow-up phone call after recent hospitalization. Katina answered phone as patient was washing his hair. Patient has been wearing oxygen at home and not having difficulty breathing. had no questions or concerns regarding discharge instructions. Patient has follow-up scheduled with PCP. [facility] has been in contact with patient and will be out to see patient tomorrow. had no further questions or concerns at this time.
== END 2020-09-02 14:20 | disposition home health service (06) | DRG 177 ==
LOC: ED 20:52 → ICU 22:08 → MS2 08-26 11:09
PROVIDERS: Internal Medicine; Admitting Provider Family Medicine; Emergency Provider Emergency Medicine; PCP Family Medicine; Visit Provider Family Medicine
DX: U07.1 COVID-19 (principal); J12.82 Pneumonia due to coronavirus disease 2019; J96.01 Acute respiratory failure with hypoxia; I25.119 Atherosclerotic heart disease of native coronary artery with unspecified angina pectoris; E87.6 Hypokalemia; I10 Essential (primary) hypertension; E78.5 Hyperlipidemia, unspecified; D64.9 Anemia, unspecified; I73.9 Peripheral vascular disease, unspecified; N40.1 Benign prostatic hyperplasia with lower urinary tract symptoms; N39.498 Other specified urinary incontinence; K21.9 Gastro-esophageal reflux disease without esophagitis; F32.9 Major depressive disorder, single episode, unspecified; F41.9 Anxiety disorder, unspecified; Z79.02 Long term (current) use of antithrombotics/antiplatelets; Z79.82 Long term (current) use of aspirin; Z79.899 Other long term (current) drug therapy; Z87.891 Personal history of nicotine dependence; Z95.5 Presence of coronary angioplasty implant and graft
CPT/HCPCS: 36415; 71045; 80048; 80053; 80076; 82728; 83605; 83615; 83735; 83880; 84145; 84484; 85014; 85018; 85025; 85027; 85379; 86140; 86850; 86900; 86901; 87040; 87426; 87449; 87633; 87641; 93005; 94003; 94660; 96374; 97110; 97116; 97162; 97166; 97530; 97535; 99251; 99284; 99285; J7030; J7040; J7050; A4216; G0463; J1940; J3490

== ENCOUNTER → 2020-11-29 12:51 | Outpatient (CLI) | payer MEDICARE, SELFPAY ==
[2019-09-08 13:16] VITALS: BMI 24.7
[2020-10-19 10:43] VITALS: BMI 23.2
--- NOTE | 2020-11-29 12:58 | ECHOD_ITS ---
Reason For Study: CAD/ASHD Procedure This was a 2D Doppler, Color Flow transthoracic echocardiogram. Exam performed in department. Left Ventricle Normal LV size. Left ventricular systolic function is normal. The estimated ejection fraction is 60 %. Stage 1 diastolic dysfunction. No regional wall motion abnormalities noted. Right Ventricle Normal RV size. Normal systolic function. Atria Normal left atrium. Normal right atrium. Mitral Valve Normal mitral valve. Tricuspid Valve Normal tricuspid valve. Mild (1+) tricuspid valve insufficiency. Pulmonary artery systolic pressure is 44 mmHg. Aortic Valve Trisinus/trileaflet aortic valve. Normal aortic valve. Pulmonic Valve Normal pulmonic valve. Great Vessels Normal aortic root. The pulmonary artery is normal size. Normal inferior vena cava. Pericardium/Pleural No pericardial effusion. MMode/2D Measurements & Calculations LVIDd: 4.5 cm IVSd: 1.3 cm LA dimension: 4.5 cm LVIDs: 2.9 cm LVPWd: 0.81 cm RVDd: 4.2 cm FS: 35.8 % LAV(MOD-bp): 67.2 ml LA A4 area: 20.0 cm2 RA A4 area: 16.9 cm2 LAV(MOD-bp) Indexed: 35.2 ml/m2 LAV(MOD-sp2): 68.3 ml LAV(MOD-sp4): 53.9 ml Time Measurements MV dec time: 0.34 sec Doppler Measurements & Calculations MV E max roly: 70.6 cm/sec Lat Peak E' Roly: 9.0 cm/sec Med Peak E' Roly: 8.3 cm/sec MV A max roly: 98.1 cm/sec E/E' lat: 7.8 E/E' med: 8.5 MV E/A: 0.72 MV V2 max: 101.1 cm/sec MV P1/2t max roly: 83.8 cm/sec Ao V2 max: 126.7 cm/sec MV max P.1 mmHg MV P1/2t: 111.1 msec Ao max P.4 mmHg MV V2 mean: 48.6 cm/sec MV dec slope: 220.9 cm/sec2 MV mean P.1 mmHg MVA(P1/2t): 2.0 cm2 MV V2 VTI: 42.0 cm LV V1 max: 109.7 cm/sec PA V2 max: 102.1 cm/sec TR max roly: 309.0 cm/sec LV V1 max P.8 mmHg TR max P.2 mmHg ECHO/Echo Complete Interpretation Summary Normal LV size. Left ventricular systolic function is normal. The estimated ejection fraction is 60 %. Stage 1 diastolic dysfunction. Ordering Physician: Dejuan Brooks Referring Physician: KATERIN Mackenzie M.D. Performed By: Ubaldo Tobias RCS
== END ==
PROVIDERS: PCP Family Medicine; Referring Provider Internal Medicine Cardiovascular Disease; Visit Provider Internal Medicine Cardiovascular Disease
DX: I25.10 Atherosclerotic heart disease of native coronary artery without angina pectoris (principal)
CPT/HCPCS: 93306

== ENCOUNTER 2021-09-18 10:12 | Emergency (ER) | payer MEDICARE, SELFPAY ==
[2019-09-08 13:16] VITALS: BMI 24.7
[2021-09-18 10:13] VITALS: BP 158/64; PULSE 58; RESP 16; TEMP 36.6; O2SAT 96; BMI 23.6
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
--- NOTE | 2021-09-18 12:14 | RAD_ITS ---
STUDY: X-RAY - THORACIC SPINE REASON FOR EXAM: Male, 85 years old. Injury/Pain TECHNIQUE: 2 view(s) of the thoracic spine were obtained. COMPARISON: None. FINDINGS: Normal kyphosis of the thoracic spine. There is no substantial scoliosis. There is multilevel endplate spondylosis of the thoracic vertebrae. There is multilevel disc space narrowing of the thoracic spine. The soft tissue structures are unremarkable. RAD/Thoracic Spine 2 Views IMPRESSION: 1. No acute fracture or subluxation. 2. Mild diffuse degenerative disc disease. Electronically Signed: Ned Singh MD at 13:46 EST ,
[2021-09-18] MEDS: Acetaminophen 500 MG Tablet PO (12:21)
[2021-09-18] MEDS: cycloBENZAPRine HCl 10 MG Tablet PO (12:21)
--- NOTE | 2021-09-18 12:25 | ED.VIS.BACK ---
HPI History of Present Illness Chief Complaint: Back Informant: patient Narrative Narrative: Patient is an 85-year-old male on chronic aspirin therapy presenting for evaluation of a fall. Patient slipped on ice and fell 2 days ago. He landed on his back and did hit his head. No report of loss of consciousness. He is continued to have midthoracic back pain which is what brought him to the emergency room today. He notes is worse when he goes from sitting and standing or when he moves. Is better when he stays still or stands. He did take ibuprofen one night which did help him sleep well but is not taking it since. Denies any radiation of pain. Denies any difficulty with stooling or urination. No other complaints at this time. [facility] Medical History (Updated 09/18/21 @ 14:[address] Leta Thornton DO) Acute respiratory failure with hypoxia Anxiety Anxiety and depression Atherosclerosis of coronary artery of [place] heart without angina pectoris BPH (benign prostatic hyperplasia) Chronic anemia COVID-19 virus detected (08/23/20) Diverticulosis Essential (primary) hypertension GERD (gastroesophageal reflux disease) GI bleed (12/2019) Hyperlipidemia Hypoxia Incontinence Peripheral vascular occlusive disease Pneumonia due to COVID-19 virus Home Medications citalopram 20 mg PO DAILY 03/17/14 [History Last Taken Unknown] omeprazole 20 mg PO DAILY 03/17/14 [History Last Taken 09/08/19] multivitamin 1 ea PO DAILY 05/16/17 [History Last Taken Unknown] amlodipine 10 mg tablet 10 mg PO DAILY tab 09/04/19 [History Last Taken 09/08/19] nitroglycerin 0.4 mg sublingual tablet 0.4 mg SUBLINGUAL Q5-15M tab 09/04/19 [History Last Taken Unknown] tamsulosin 0.4 mg capsule 0.4 mg PO DAILY cap 09/04/19 [History Last Taken Unknown] niacin 500 mg capsule,extended release 500 mg PO BID 09/16/19 [History Last Taken Unknown] ascorbic acid (vitamin C) 1,000 mg PO DAILY 01/18/20 [History Last Taken Unknown] mupirocin 1 applic TOPICAL TID 08/23/20 [History Last Taken Unknown] atorvastatin 10 mg PO DAILY 08/25/20 [History Last Taken Unknown] clopidogrel 75 mg PO DAILY 08/25/20 [History Last Taken Unknown] finasteride 5 mg PO DAILY 08/26/20 [History Last Taken Unknown] latanoprost (PF) 1 drp EACH EYE QHS 08/26/20 [History Last Taken Unknown] hydrochlorothiazide 25 mg tablet 25 mg PO DAILY #90 tab 09/20/20 [Rx Last Taken Unknown] aspirin 81 mg tablet,delayed release 81 mg PO DAILY 04/25/21 [History Last Taken Unknown] cyclobenzaprine 10 mg PO TID PRN #14 tab 09/18/21 [Rx Last Taken Unknown] Allergy/AdvReac Type Severity Reaction Status Date / Time Sulfa (Sulfonamide Allergy Rash Verified 10/19/20 10:41 Antibiotics) lisinopril AdvReac Other Verified 10/19/20 10:41 Family History Father CVA (cerebral vascular accident) Mother CVA (cerebral vascular accident) Hypertension Surgical History History of angioplasty of peripheral vessel (08/2017) History of colonoscopy (12/2019) History of coronary artery stent placement (09/08/19) History of esophagogastroduodenoscopy (EGD) (12/2019) History of herniorrhaphy Social History Smoking Status: Former smoker ROS ROS ED Constitutional Constitutional ED: Denies chills or fever(s) Eyes Eyes: Denies blurry vision or change in vision ENT ENT ED: Denies ear pain or rhinorrhea Cardiovascular Cardiovascular: Denies chest pain Respiratory/Chest Respiratory/Chest: Denies dyspnea Gastrointestinal Gastrointestinal: Denies abdominal pain, diarrhea or vomiting Genitourinary Genitourinary ED: Denies dysuria or hematuria Musculoskeletal Musculoskeletal: Reports back pain; Denies arthralgias or myalgias Integumentary Denies abscess or rash Neurologic Neurologic: Denies headache(s), paresthesias or weakness Psychiatric Psychiatric: Denies depression EXAM Physical Exam Const Vital Signs: 09/18/21 10:13 Temperature 97.8 F Temperature Source Temporal Pulse Rate 58 L Respiratory Rate 16 Blood Pressure 158/64 H Blood Pressure Mean 95 Pulse Ox 96 Oxygen Delivery Method Room Air Positive well nourished and well developed Constitutional Narrative: Standing in room General Appearance ED: well developed HEENT Reports TM's clear and moist mucous membranes Negative for trauma or tenderness Tympanic Membrane ED: Yes TM's clear Eyes PERRL and EOMs intact bilaterally Neck supple Neck Narrative: Normal range of motion, no midline tenderness, no step-off sign General: Negative for tenderness Resp normal respiratory effort and clear to auscultation bilaterally Effort and Inspection: Negative for pain with movement Cardio regular rate, regular rhythm and no murmurs GI normal to inspection, nondistended, normoactive bowel sounds, soft to palpation, non-tender and non-distended Back/Spine normal to inspection Back/Spine Narrative: No midline tenderness. Patient points to his lower thoracic back as the area of pain. It is diffuse and most pronounced in the paraspinal region. Some mild spasm is appreciated. Extremity normal to inspection General Extremety ED: Negative for edema or tenderness General Extremity: Negative for edema Neuro oriented x3 and no sensory deficits noted Sensorium / Orientation: alert Motor Exam: strength 5/5 throughout Psych mental status grossly normal Skin no rashes or lesions noted and no wounds MDM MDM MDM Narrative Medical decision making narrative: Patient evaluated after mechanical fall. This occurred 2 days ago. Patient is a normal neurologic exam. As he did hit his head CT of the brain obtained also. X-ray of the thoracic spine not show an acute process. Patient not have any pinpoint bony tenderness. Likely his pain is more muscle skeletal. He is requesting a muscle relaxer. He is counseled on the risk and benefits of muscle relaxers especially in his age group. He is counseled to increase risk of falls and confusion. He would still like a prescription for muscle relaxer. He is given 1 in the ER which he seems to tolerate well. He is also given Tylenol. On repeat evaluation patient has improvement of symptoms. Head CT does shows possible normal pressure hydrocephalus. Spoke with patient and son at length about any signs or symptoms of normal pressure hydrocephalus. They deny any such as urinary incontinence, confusion or unsteady gait. Patient counseled these findings and need for neurologic outpatient follow-up. Patient and son agreeable this plan of care. Radiography Diagnostic Testing: Clinical Impression(s) from Imaging Studies Brain CT 09/18/21 12:13 IMPRESSION: 1. No acute intracranial hemorrhage. 2. 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 Electronically Signed: Ned Singh MD at 13:48 EST , Thoracic Spine X-Ray 09/18/21 12:14 IMPRESSION: 1. No acute fracture or subluxation. 2. Mild diffuse degenerative disc disease. Electronically Signed: Ned Singh MD at 13:46 EST , Discharge Plan Triage Chief Complaint: Back ED Provider: Leta Thornton Dx/Rx/DC Orders Clinical Impression: Fall, Acute thoracic back pain, Abnormal CT of the head Instructions: ED Back Sprain/Strain Prescriptions: New cyclobenzaprine 10 mg tablet 10 mg PO TID PRN (Reason: muscle spasm) Qty: 14 RF: 0 No Action amlodipine 10 mg tablet 10 mg PO DAILY RF: 0 nitroglycerin 0.4 mg tablet, sublingual 0.4 mg SUBLINGUAL Q5-15M RF: 0 tamsulosin 0.4 mg capsule 0.4 mg PO DAILY RF: 0 niacin 500 mg capsule, extended release 500 mg PO BID RF: 0 aspirin [Adult Aspirin Regimen] 81 mg tablet,delayed release (DR/EC) 81 mg PO DAILY RF: 0 citalopram 20 MG tablet 20 mg PO DAILY RF: 0 omeprazole 20 MG capsule 20 mg PO DAILY RF: 0 multivitamin 1 EACH tablet 1 ea PO DAILY RF: 0 ascorbic acid (vitamin C) 1,000 MG tablet 1,000 mg PO DAILY RF: 0 mupirocin 1 APPLIC ointment 1 applic TOPICAL TID RF: 0 atorvastatin 10 MG tablet 10 mg PO DAILY RF: 0 clopidogrel 75 MG tablet 75 mg PO DAILY RF: 0 finasteride 5 MG tablet 5 mg PO DAILY RF: 0 latanoprost (PF) 7.5 ML drops 1 drp EACH EYE QHS RF: 0 hydrochlorothiazide 25 mg tablet 25 mg PO DAILY Qty: 90 RF: 3 Primary Care Provider: Radha Durbin Referrals: Jim Deng MD [STAFF PHYSICIAN] - (For abnormal CT brain- ? Normal pressure hydrocephalus) Radha Durbin, PA [Primary Care Provider] - Activity Restrictions/Additional Instructions: Alternate Tylenol ibuprofen as well for pain. Be careful when taking Flexeril as it can increase your risk of falls. Disposition Disposition: Home, Self Care
[2021-09-18 14:22] VITALS: BP 150/60; PULSE 60; RESP 16; O2SAT 95
== END 2021-09-18 14:24 | disposition home or self-care (01) ==
PROVIDERS: Emergency Provider Emergency Medicine; PCP Physician Assistant; Visit Provider Emergency Medicine
DX: S09.90XA Unspecified injury of head, initial encounter (principal); M54.6 Pain in thoracic spine; W00.0XXA Fall on same level due to ice and snow, initial encounter; I25.10 Atherosclerotic heart disease of native coronary artery without angina pectoris; R93.0 Abnormal findings on diagnostic imaging of skull and head, not elsewhere classified; I73.9 Peripheral vascular disease, unspecified; I10 Essential (primary) hypertension; E78.5 Hyperlipidemia, unspecified; N40.0 Benign prostatic hyperplasia without lower urinary tract symptoms; K21.9 Gastro-esophageal reflux disease without esophagitis; Z79.82 Long term (current) use of aspirin; Z79.899 Other long term (current) drug therapy; Z87.891 Personal history of nicotine dependence; Z95.5 Presence of coronary angioplasty implant and graft
CPT/HCPCS: 70450; 72070; 99283

== ENCOUNTER → 2022-02-27 | Outpatient (CLI) | payer MEDICARE, SELFPAY ==
[2019-09-08 13:16] VITALS: BMI 24.7
--- NOTE | 2022-02-27 19:32 | STRESSREP_ITS ---
Stress Test Report Exercise myocardial perfusion stress test. 86-year-old male with a history of coronary artery disease. Stress protocol: Resting EKG demonstrates sinus bradycardia with a rate of 51 bpm normal intervals are noted resting blood pressure is 148/72 mmHg. The patient exercised according to the regular Wolf protocol for total duration of 8 naa anastasiia. The maximum heart rate attained was 157 bpm which was 115% of max impacted heart rate the maximum workload was 10.1 metabolic equivalents. The patient maintained sinus rhythm throughout the recording. At rest there were no ST or T wave changes noted suggest ischemia and at peak exercise upsloping ST changes were noted with did not meet the criteria for ischemia. Short episode of atrial fibrillation was noted lasting about 9 beats. Occasional premature ventricular complexes were noted. The peak blood pressure was 180/58 mmHg. Myocardial perfusion protocol. 11.4 mCi of technetium 99m sestamibi was injected at rest. The patient exercised according to regular Wolf protocol for total duration of 8 minutes and at peak exercise 34.2 mCi of technetium 99m sestamibi was injected stress images were obtained stress and rest images were reconstructed and compared in the short axis vertical long horizontal long axis. Gated images were also obtained to Perfusion SPECT analysis: Review of the stress images demonstrate normal uptake of tracer noted in all areas of the myocardium. The resting images similarly demonstrate normal uptake of tracer noted in all areas of the myocardium. No areas of reversibility are noted to suggest ischemia and no previous infarct is noted. Gated SPECT analysis: The gated ejection fraction is noted to be 67%. Conclusion: Normal exercise myocardial perfusion stress test at a high workload. Preserved ejection fraction.
== END | disposition home or self-care (01) ==
PROVIDERS: PCP Physician Assistant; Referring Provider Internal Medicine Cardiovascular Disease; Visit Provider Internal Medicine Cardiovascular Disease
DX: I25.10 Atherosclerotic heart disease of native coronary artery without angina pectoris (principal)
CPT/HCPCS: 78452; 93017; A9500; A4216

== ENCOUNTER 2022-06-21 21:52 | Emergency (ER) | payer MEDICARE, SELFPAY ==
[2019-09-08 13:16] VITALS: BMI 24.7
[2022-06-21 21:53] VITALS: BP 166/80; PULSE 92; RESP 14; TEMP 36.6; O2SAT 96; BMI 22.9
--- NOTE | 2022-06-21 22:14 | EX.ED.DYSGE1 ---
HPI History of Present Illness Chief Complaint: Nosebleed Detail of Chief Complaint: Nosebleed x1 hour Informant: patient and family Narrative Narrative: Patient presents to the emergency department with complaint of a nosebleed from the right side of the nose that started about an hour ago. Patient states he was getting ready for bed and brushing his teeth when it spontaneously started bleeding. He does not have history of frequent nosebleeds. Patient on Plavix and aspirin. Patient denies recent illness. [facility] Medical History (Updated 06/21/22 @ 22:[address] Shahab Teixeira, ) Acute respiratory failure with hypoxia Anxiety Anxiety and depression Atherosclerosis of coronary artery of [place] heart without angina pectoris BPH (benign prostatic hyperplasia) Chronic anemia COVID-19 virus detected (08/23/20) Diverticulosis Essential (primary) hypertension GERD (gastroesophageal reflux disease) GI bleed (12/2019) Hyperlipidemia Hypoxia Incontinence Peripheral vascular occlusive disease Pneumonia due to COVID-19 virus Home Medications citalopram 20 mg tablet 20 mg PO DAILY Check with primary doctor 03/17/14 [History Last Taken Unknown] omeprazole 20 mg capsule,delayed release 20 mg PO DAILY Check with primary doctor 03/17/14 [History Last Taken 09/08/19] multivitamin 1 ea PO DAILY Check with primary doctor 05/16/17 [History Last Taken Unknown] amlodipine 10 mg tablet 10 mg PO DAILY Check with primary doctor 09/04/19 [History Last Taken 09/08/19] nitroglycerin 0.4 mg sublingual tablet 0.4 mg sublingual Q5-15M Check with primary doctor 09/04/19 [History Last Taken Unknown] tamsulosin 0.4 mg capsule 0.4 mg PO DAILY Check with primary doctor 09/04/19 [History Last Taken Unknown] niacin 500 mg capsule,extended release 500 mg PO BID Check with primary doctor 09/16/19 [History Last Taken Unknown] ascorbic acid (vitamin C) 1,000 mg tablet 1,000 mg PO DAILY Check with primary doctor 01/18/20 [History Last Taken Unknown] mupirocin 2 % topical ointment 1 applic topical TID Check with primary doctor 08/23/20 [History Last Taken Unknown] atorvastatin 10 mg tablet 10 mg PO DAILY Check with primary doctor 08/25/20 [History Last Taken Unknown] clopidogrel 75 mg tablet 75 mg PO DAILY Check with primary doctor 08/25/20 [History Last Taken Unknown] finasteride 5 mg tablet 5 mg PO DAILY prostate 08/26/20 [History Last Taken Unknown] latanoprost (PF) 0.005 % eye drops 1 drp EACH EYE QHS Check with primary doctor 08/26/20 [History Last Taken Unknown] hydrochlorothiazide 25 mg tablet 25 mg PO DAILY #90 tabs 09/20/20 [Rx Last Taken Unknown] aspirin 81 mg tablet,delayed release (Adult Aspirin Regimen) 81 mg PO DAILY 04/25/21 [History Last Taken Unknown] cyclobenzaprine 10 mg tablet 10 mg PO TID PRN muscle spasm #14 tabs 09/18/21 [Rx Last Taken Unknown] Allergy/AdvReac Type Severity Reaction Status Date / Time Sulfa (Sulfonamide Allergy Rash Verified 06/21/22 21:53 Antibiotics) lisinopril AdvReac Other Verified 06/21/22 21:53 Family History Father CVA (cerebral vascular accident) Mother CVA (cerebral vascular accident) Hypertension Surgical History History of angioplasty of peripheral vessel (08/2017) History of colonoscopy (12/2019) History of coronary artery stent placement (09/08/19) History of esophagogastroduodenoscopy (EGD) (12/2019) History of herniorrhaphy Social History Smoking Status: Former smoker ROS ROS ED Review of Systems ROS Unobtainable: other Constitutional Constitutional ED: Reports lethargy; Denies chills, fever(s), sweats or weight loss Eyes Eyes: Denies blurry vision, change in vision or diplopia ENT ENT ED: Reports other Details: Nosebleed from right-sided nose ; Denies rhinorrhea or sore throat Cardiovascular Cardiovascular: Denies chest pain, orthopnea or racing heartbeat Respiratory/Chest Respiratory/Chest: Reports dyspnea; Denies cough, dyspnea on exertion, orthopnea or sputum Gastrointestinal Gastrointestinal: Denies abdominal pain, diarrhea, nausea or vomiting Genitourinary Genitourinary ED: Denies dysuria, hematuria or urinary frequency Musculoskeletal Musculoskeletal: Denies arthralgias, back pain, myalgias or neck pain Integumentary Denies abscess, Abrasions or rash Neurologic Neurologic: Denies headache(s) or weakness Psychiatric Psychiatric: Denies anxiety, depression or suicidal thoughts Endocrine Endocrinology: Denies polydipsia, polyphagia or polyuria Hematologic/Lymphatic Hematologic/Lymphatic: Denies easy bleeding, easy bruising or lymphadenopathy Allergic/Immunologic Allergic/Immunologic ED: Denies mouth swelling, tongue swelling or urticaria EXAM Physical Exam Const Vital Signs: 06/21/22 21:53 Temperature 97.8 F Temperature Source Temporal Pulse Rate 92 Respiratory Rate 14 Blood Pressure 166/80 H Blood Pressure Mean 108 Pulse Ox 96 Oxygen Delivery Method Room Air Positive well nourished and well developed General Appearance ED: well developed and NAD HEENT Reports TM's clear and moist mucous membranes HEENT Narrative: Patient with a nasal clip on his nose that was slipping off noted to have bleeding from the right side of the nose. I did have patient blow his nose and there was some clot but difficult to ascertain the source of the bleeding. Minimal blood on the oropharynx. normocephalic and atraumatic; Negative for trauma or tenderness Tympanic Membrane ED: Yes TM's clear Eyes PERRL and EOMs intact bilaterally General Eye ED: Negative for pale conjunctiva or scleral icterus Neck no lymphadenopathy, supple and no JVD General: Negative for tenderness Chest Wall inspection of chest normal and palpation of chest normal Chest: Negative for tenderness Resp normal respiratory effort and clear to auscultation bilaterally Effort and Inspection: Negative for respiratory distress or pain with movement Auscultation: Negative for rhonchi, wheezes or diminished lung sounds Cardio regular rate, regular rhythm, S1 normal heart sound, S2 normal heart sound and no murmurs Peripheral Pulses: pulses 2+ throughout GI normal to inspection, nondistended, normoactive bowel sounds, soft to palpation, non-tender, non-distended and no masses Back/Spine no CVA tenderness and no thoracic nor lumbar tenderness Extremity normal to inspection General Extremety ED: Negative for edema General Extremity: Negative for edema Neuro oriented x3, CN's II-XII intact bilaterally, no sensory deficits noted and gait normal Sensorium / Orientation: awake, alert, oriented to person, oriented to place and oriented to time Motor Exam: strength 5/5 throughout and strength abnormal Psych mental status grossly normal Skin no rashes or lesions noted and no wounds MDM MDM MDM Narrative Medical decision making narrative: Patient had a cotton ball dipped in Ankush solution applied to the right nasal vault and I had the patient hold constant pressure for 20 minutes. After 20 minutes I remove the cottonball from the patient's nose and there was no further bleeding. I really was unable to visualize the source of the bleeding. I did observe him in the department for 30 minutes and he had no further bleeding. Patient was ambulated in the department and he had no further bleeding. I did give patient instructions on holding constant pressure for 20 minutes with a cottonball in the nasal vault should the bleeding started again and if it does not stop he is to return to the emergency department. Patient really did not know what to do initially and did not hold any pressure prior to coming into the emergency department. He is on Plavix and aspirin for history of stents in his legs and a cardiac stent therefore he is advised to continue on that given that the bleeding here stopped relatively easily and he has not had a chronic issue with nosebleeds. Patient will be referred to ENT for follow-up. Discharge Plan Triage Chief Complaint: Nosebleed ED Provider: Shahab Teixeira Dx/Rx/DC Orders Clinical Impression: Epistaxis Instructions: ED Epistaxis (Adult) Prescriptions: No Action amlodipine 10 mg tablet 10 mg PO DAILY nitroglycerin 0.4 mg tablet, sublingual 0.4 mg SUBLINGUAL Q5-15M tamsulosin 0.4 mg capsule 0.4 mg PO DAILY niacin 500 mg capsule, extended release 500 mg PO BID aspirin [Adult Aspirin Regimen] 81 mg tablet,delayed release (DR/EC) 81 mg PO DAILY citalopram 20 MG tablet 20 mg PO DAILY omeprazole 20 MG capsule 20 mg PO DAILY multivitamin 1 EACH tablet 1 ea PO DAILY ascorbic acid (vitamin C) 1,000 MG tablet 1,000 mg PO DAILY mupirocin 1 APPLIC ointment 1 applic TOPICAL TID atorvastatin 10 MG tablet 10 mg PO DAILY clopidogrel 75 MG tablet 75 mg PO DAILY finasteride 5 MG tablet 5 mg PO DAILY latanoprost (PF) 7.5 ML drops 1 drp EACH EYE QHS cyclobenzaprine 10 mg tablet 10 mg PO TID PRN (Reason: muscle spasm) Qty: 14 0RF hydrochlorothiazide 25 mg tablet 25 mg PO DAILY Qty: 90 3RF Primary Care Provider: Radha Durbin Referrals: Serafin Schulte MD [Med Staff - Active Staff] - 3-5 Days Radha Durbin, PA [Primary Care Provider] - Disposition Disposition: Home, Self Care
[2022-06-21] MEDS: Mixture 30 ML Bottle 6 ML TOPICAL (22:47)
--- NOTE | 2022-06-21 22:57 | ED.RN ---
PT WALKED DOWN THE SANZ AND BACK TO HIS ROOM WITHOUT ANY SIGNS OF NASAL BLEEDING
[2022-06-21 23:01] VITALS: PULSE 85; RESP 15; O2SAT 98
== END 2022-06-21 23:02 | disposition home or self-care (01) ==
PROVIDERS: Emergency Provider Emergency Medicine; PCP Physician Assistant; Visit Provider Emergency Medicine
DX: R04.0 Epistaxis (principal); I25.10 Atherosclerotic heart disease of native coronary artery without angina pectoris; Z86.16 Personal history of COVID-19; Z95.5 Presence of coronary angioplasty implant and graft; Z79.01 Long term (current) use of anticoagulants; Z79.82 Long term (current) use of aspirin; Z87.891 Personal history of nicotine dependence
CPT/HCPCS: 30901; 99283

== ENCOUNTER 2023-02-18 14:14 | Emergency (ER) | payer MEDICARE, SELFPAY ==
[2019-09-08 13:16] VITALS: BMI 24.7
[2023-02-18 14:16] VITALS: BP 140/60; PULSE 81; RESP 18; TEMP 36.7; O2SAT 95; BMI 22.5
--- NOTE | 2023-02-18 14:58 | EX.ED.DYSGE1 ---
HPI <CHRISTINE Cardenas - Last Filed: 02/18/23 16:05> History of Present Illness Chief Complaint: Lower Extremity Injury Narrative Narrative: Patient presenting today due to pain in his right buttocks that radiates to the posterior aspect of his right thigh that he has had for the past 3 weeks. He was seen in urgent care where sacral and lumbar x-rays were performed and was told that they were unremarkable. He has seen his PCP who performed a manipulation on his back and told him that this was either sciatica or piriformis syndrome. He reports that the manipulation only helped for short duration of time. He denies any injury to the area, bowel/bladder incontinence, saddle paresthesia, fever, and chills. PFS <CHRISTINE Cardenas - Last Filed: 02/18/23 16:05> [facility] Medical History Acute respiratory failure with hypoxia Anxiety Anxiety and depression Atherosclerosis of coronary artery of [place] heart without angina pectoris BPH (benign prostatic hyperplasia) Chronic anemia COVID-19 virus detected (08/23/20) Diverticulosis Essential (primary) hypertension GERD (gastroesophageal reflux disease) GI bleed (12/2019) Hyperlipidemia Hypoxia Incontinence Peripheral vascular occlusive disease Pneumonia due to COVID-19 virus Home Medications citalopram 20 mg tablet 20 mg PO DAILY Check with primary doctor 03/17/14 [History Last Taken Unknown] omeprazole 20 mg capsule,delayed release 20 mg PO DAILY Check with primary doctor 03/17/14 [History Last Taken 09/08/19] multivitamin 1 ea PO DAILY Check with primary doctor 05/16/17 [History Last Taken Unknown] amlodipine 10 mg tablet 10 mg PO DAILY Check with primary doctor 09/04/19 [History Last Taken 09/08/19] nitroglycerin 0.4 mg sublingual tablet 0.4 mg sublingual Q5-15M Check with primary doctor 09/04/19 [History Last Taken Unknown] tamsulosin 0.4 mg capsule 0.4 mg PO DAILY Check with primary doctor 09/04/19 [History Last Taken Unknown] niacin 500 mg capsule,extended release 500 mg PO BID Check with primary doctor 09/16/19 [History Last Taken Unknown] ascorbic acid (vitamin C) 1,000 mg tablet 1,000 mg PO DAILY Check with primary doctor 01/18/20 [History Last Taken Unknown] mupirocin 2 % topical ointment 1 applic topical TID Check with primary doctor 08/23/20 [History Last Taken Unknown] atorvastatin 10 mg tablet 10 mg PO DAILY Check with primary doctor 08/25/20 [History Last Taken Unknown] clopidogrel 75 mg tablet 75 mg PO DAILY Check with primary doctor 08/25/20 [History Last Taken Unknown] finasteride 5 mg tablet 5 mg PO DAILY prostate 08/26/20 [History Last Taken Unknown] latanoprost (PF) 0.005 % eye drops 1 drp EACH EYE QHS Check with primary doctor 08/26/20 [History Last Taken Unknown] hydrochlorothiazide 25 mg tablet 25 mg PO DAILY #90 tabs 09/20/20 [Rx Last Taken Unknown] aspirin 81 mg tablet,delayed release (Adult Aspirin Regimen) 81 mg PO DAILY 04/25/21 [History Last Taken Unknown] cyclobenzaprine 10 mg tablet 10 mg PO TID PRN muscle spasm #14 tabs 09/18/21 [Rx Last Taken Unknown] hydrocodone-acetaminophen 5-325mg 5mg-325mg 1 tab PO Q6H PRN PRN Pain 3 days #10 TABLETS 02/18/23 [Rx Last Taken Unknown] Allergy/AdvReac Type Severity Reaction Status Date / Time Sulfa (Sulfonamide Allergy Rash Verified 02/18/23 14:16 Antibiotics) lisinopril AdvReac Other Verified 02/18/23 14:16 Family History Father CVA (cerebral vascular accident) Mother CVA (cerebral vascular accident) Hypertension Surgical History History of angioplasty of peripheral vessel (08/2017) History of colonoscopy (12/2019) History of coronary artery stent placement (09/08/19) History of esophagogastroduodenoscopy (EGD) (12/2019) History of herniorrhaphy Social History Smoking Status: Former smoker ROS <CHRISTINE Cardenas - Last Filed: 02/18/23 16:05> ROS ED Constitutional Constitutional ED: Denies chills or fever(s) Cardiovascular Cardiovascular: Denies chest pain Respiratory/Chest Respiratory/Chest: Denies cough or dyspnea Gastrointestinal Gastrointestinal: Denies abdominal pain, nausea or vomiting Genitourinary Genitourinary ED: Denies dysuria, hematuria or urinary urgency Musculoskeletal Musculoskeletal: Reports arthralgias and myalgias; Denies back pain or neck pain Integumentary Denies rash Neurologic Neurologic: Denies paresthesias or weakness EXAM <CHRISTINE Cardenas - Last Filed: 02/18/23 16:05> Physical Exam Const Vital Signs: 02/18/23 14:16 Temperature 98.1 F Temperature Source Temporal Pulse Rate 81 Respiratory Rate 18 Blood Pressure 140/60 H Blood Pressure Mean 86 Pulse Ox 95 Oxygen Delivery Method Room Air Positive well nourished, well developed and no apparent distress General Appearance ED: well developed HEENT Reports normocephalic and head/scalp atraumatic Mouth ED: Yes moist mucous membranes normal Eyes PERRL and EOMs intact bilaterally Neck full ROM and supple Chest Wall inspection of chest normal Resp normal respiratory effort and clear to auscultation bilaterally Cardio regular rate and regular rhythm GI soft to palpation, non-tender, non-distended and no masses Back/Spine normal ROM and normal to inspection Extremity normal to inspection and full ROM Neuro oriented x3, CN's II-XII intact bilaterally, moves all extremities, no focal motor deficits and no sensory deficits noted Sensorium / Orientation: awake and alert Motor Exam: strength 5/5 throughout Psych mental status grossly normal and thought process normal Skin no rashes or lesions noted and no wounds <Dr. Davey Whitehead MD - Last Filed: 02/18/23 15:28> Physical Exam Const Vital Signs: 02/18/23 14:16 Temperature 98.1 F Temperature Source Temporal Pulse Rate 81 Respiratory Rate 18 Blood Pressure 140/60 H Blood Pressure Mean 86 Pulse Ox 95 Oxygen Delivery Method Room Air MDM <CHRISTINE Cardenas - Last Filed: 02/18/23 16:05> [facility] Narrative Medical decision making narrative: Patient presenting due to pain in his right buttocks that radiates down the posterior aspect of his right thigh that he has had for the past several weeks. He did see his PCP for this who performed manipulation that briefly helped and gave him different exercises he could do to help with the pain but they are not offering much relief. He is well-appearing and in no acute distress. There is no injury to the area, no symptoms concerning for cauda equina syndrome or spinal abscess, I do not think that any imaging needs to be performed. Because patient did drive here today he has not been given anything for pain here in the ED as he has been taking Tylenol already without much relief. However, he will be given a short course of [place] for home and is to follow-up with his PCP. He has been given return instructions and will be discharged home in stable condition. He is comfortable with plan. <Dr. Davey Whitehead MD - Last Filed: 02/18/23 15:28> [facility] Treatment and Re-Evaluation Comments:: I have personally performed a face to face assessment of the patient and have reviewed the STEPHEN Note. I performed a substantive portion of the visit including all aspects of the following. My evangelista findings include: History is intermittent pain in the right buttock for the past 3 weeks. Saw his PCP, manipulation temporarily helped. Sitting is better than standing and walking and movement. No bowel or bladder dysfunction, saddle anesthesia, pain does radiate into his right calf but no numbness or tingling no foot discomfort. No injuries. Exam is neurovascular intact distally both lower extremities, normal reflexes no clonus, normal strength. Symmetric. Negative straight leg raises while sitting bilaterally. Tenderness in the external rotators on the right side, but passively no pain with internal/external rotation of the hip. Nontender at the SI joint at this time. No spinal tenderness. Medical Decison Making no indication for studies right now. This is not testing like sciatica. We discussed the differential which does include piriformis syndrome, SI joint dysfunction, sciatica/DDD. Supportive care advised for now, I offered a prescription for narcotic, we discussed pros and cons of that. He drove here so not given him anything here but given him a prescription to try at home for sleep tonight. He is comfortable with that plan discussed with family member as well who agrees. Other additions or changes: [None] Discharge Plan Triage Chief Complaint: Lower Extremity Injury ED Midlevel Provider: Jeannette Juárez ED Provider: Davey Whitehead Dx/Rx/DC Orders Clinical Impression: Acute right-sided low back pain Instructions: Relieving Back Pain Prescriptions: New hydrocodone-acetaminophen [hydrocodone-acetaminophen] 5-325 mg tablet 1 tab PO Q6H PRN PRN (Reason: Pain) 3 Days Qty: 10 0RF No Action amlodipine 10 mg tablet 10 mg PO DAILY nitroglycerin 0.4 mg tablet, sublingual 0.4 mg SUBLINGUAL Q5-15M tamsulosin 0.4 mg capsule 0.4 mg PO DAILY niacin 500 mg capsule, extended release 500 mg PO BID aspirin [Adult Aspirin Regimen] 81 mg tablet,delayed release (DR/EC) 81 mg PO DAILY citalopram 20 MG tablet 20 mg PO DAILY omeprazole 20 MG capsule 20 mg PO DAILY multivitamin 1 EACH tablet 1 ea PO DAILY ascorbic acid (vitamin C) 1,000 MG tablet 1,000 mg PO DAILY mupirocin 1 APPLIC ointment 1 applic TOPICAL TID atorvastatin 10 MG tablet 10 mg PO DAILY clopidogrel 75 MG tablet 75 mg PO DAILY finasteride 5 MG tablet 5 mg PO DAILY latanoprost (PF) 7.5 ML drops 1 drp EACH EYE QHS cyclobenzaprine 10 mg tablet 10 mg PO TID PRN (Reason: muscle spasm) Qty: 14 0RF hydrochlorothiazide 25 mg tablet 25 mg PO DAILY Qty: 90 3RF Primary Care Provider: Radha Durbin Referrals: Radha Durbin, PA [Primary Care Provider] - 1 Week if not improving Disposition Disposition: Home, Self Care Discharge Date/Time: 02/18/23 15:41
== END 2023-02-18 15:41 | disposition home or self-care (01) ==
PROVIDERS: Emergency Provider Emergency Medicine; PCP Physician Assistant; Visit Provider Emergency Medicine
DX: M54.50 Low back pain, unspecified (principal); I10 Essential (primary) hypertension; I25.10 Atherosclerotic heart disease of native coronary artery without angina pectoris; E78.5 Hyperlipidemia, unspecified; N40.0 Benign prostatic hyperplasia without lower urinary tract symptoms; Z79.02 Long term (current) use of antithrombotics/antiplatelets; Z79.82 Long term (current) use of aspirin; Z79.899 Other long term (current) drug therapy; Z87.891 Personal history of nicotine dependence
CPT/HCPCS: 99282

== ENCOUNTER 2023-08-01 12:42 | Inpatient (IN) | payer MEDICARE, SELFPAY ==
[2019-09-08 13:16] VITALS: BMI 24.7
[2023-08-01] VITALS (14 sets, daily range): BP systolic 129–150; BP diastolic 61–99; PULSE 64–77; RESP 15–24; TEMP 36.5–36.6; O2SAT 5–96; BMI 23.3; BMI 22.6
--- NOTE | 2023-08-01 13:23 | ED.VIS.DYS ---
HPI History of Present Illness Chief Complaint: Shortness of Breath Narrative Narrative: 87-year-old male past medical history of coronary artery disease and peripheral vascular disease both with stenting presents with shortness of breath and generalized weakness. He states over the last week he has had a cough with yellow sputum production and shortness of breath which she feels is improving. No fevers or chills. No nausea or vomiting. However, his daughter relates history that today he had a low pulse ox in the 80s. He does not wear oxygen at home. He quit smoking 24 years ago. He does not necessarily have a diagnosis of COPD or CHF. He denies any weight gain or swelling of his legs. He states he felt generally tired today and he has dyspnea on exertion as well. [facility] Medical History Acute respiratory failure with hypoxia Anxiety Anxiety and depression Atherosclerosis of coronary artery of [place] heart without angina pectoris BPH (benign prostatic hyperplasia) Chronic anemia COVID-19 virus detected (08/23/20) Diverticulosis Essential (primary) hypertension GERD (gastroesophageal reflux disease) GI bleed (12/2019) Hyperlipidemia Hypoxia Incontinence Peripheral vascular occlusive disease Pneumonia due to COVID-19 virus Home Medications citalopram 20 mg tablet 20 mg PO DAILY DEPRESSION 03/17/14 [History Last Taken 08/01/23] multivitamin 1 ea PO DAILY HEALTH MINENANCE 05/16/17 [History Last Taken 08/01/23] amlodipine 10 mg tablet 10 mg PO DAILY BLOOD PESSURE 09/04/19 [History Last Taken 08/01/23] tamsulosin 0.4 mg capsule 0.4 mg PO DAILY PROSTATE 09/04/19 [History Last Taken 08/01/23] niacin 500 mg capsule,extended release 500 mg PO DAILY SUPPLEMENT 09/16/19 [History Last Taken 08/01/23] ascorbic acid (vitamin C) 1,000 mg tablet 1,000 mg PO DAILY SUPPLEMENT 01/18/20 [History Last Taken 08/01/23] atorvastatin 10 mg tablet 10 mg PO DAILY CHOLESTEROL 08/25/20 [History Last Taken 08/01/23] clopidogrel 75 mg tablet 75 mg PO DAILY BLOOD THINNER 08/25/20 [History Last Taken 08/01/23] finasteride 5 mg tablet 5 mg PO DAILY PROSTATE 08/26/20 [History Last Taken 08/01/23] hydrochlorothiazide 25 mg tablet 25 mg PO DAILY BLOOD PRESSURE #90 tabs 09/20/20 [Rx Last Taken 08/01/23] aspirin 81 mg tablet,delayed release (Adult Aspirin Regimen) 81 mg PO DAILY HEART HEALTH 04/25/21 [History Last Taken 08/01/23] buspirone 5 mg tablet 5 mg PO TID 08/01/23 [History Last Taken 08/01/23] hydrocodone-acetaminophen 5-325mg 5mg-325mg 1 tab PO Q6H PRN PAIN 08/01/23 [History Last Taken Unknown] latanoprost 0.005 % eye drops 1 drp ophthalmic (eye) QHS GLAUCOMA 08/01/23 [History Last Taken 07/31/23] metoprolol succinate 25 mg tablet,extended release 24 hr 25 mg PO DAILY BLOOD PRESSURE 08/01/23 [History Last Taken 08/01/23] omeprazole 40 mg capsule,delayed release 40 mg PO DAILY ACID REFLUX 08/01/23 [History Last Taken 08/01/23] trazodone 50 mg tablet 50 mg PO QHS SLEEP 08/01/23 [History Last Taken 08/01/23] Allergy/AdvReac Type Severity Reaction Status Date / Time Sulfa (Sulfonamide Allergy Rash Verified 08/01/23 12:45 Antibiotics) lisinopril AdvReac Other Verified 08/01/23 12:45 Family History Father CVA (cerebral vascular accident) Mother CVA (cerebral vascular accident) Hypertension Surgical History History of angioplasty of peripheral vessel (08/2017) History of colonoscopy (12/2019) History of coronary artery stent placement (09/08/19) History of esophagogastroduodenoscopy (EGD) (12/2019) History of herniorrhaphy Social History Smoking Status: Former smoker ROS ROS ED ROS Narrative Constitutional: No fever, no chills. Neurolysed weakness. Low pulse ox in the 80s according to daughter. HEENT: No sore throat. No neck pain. No loss of vision. No rhinorrhea. Cardiovascular: No chest pain. No palpitations. No pedal edema. Respiratory: Positive productive cough, positive dyspnea on exertion and shortness of breath. Abdominal: No abdominal pain. No nausea. No vomiting. Genitourinary: No dysuria. No hematuria. Musculoskeletal: No myalgias. No arthralgias. Neurologic: No headaches. No dizziness. No lightheadedness. Skin: No rash. No change in color. Psychiatric: No depression. No anxiety. EXAM Physical Exam Narrative Exam Narrative: Afebrile. Vital signs noted. HEENT: Normocephalic. Atraumatic. PERRL, EOMI. Neck soft and supple. No point tenderness or step off. Cardiovascular: Regular rate and rhythm. No murmurs, rubs, or gallops appreciated. Respiratory: No tachypnea. Decreased breath sounds bilateral bases, expiratory wheeze right greater than left at bases. No distress. Gastrointestinal: Abdomen soft, nontender, with normoactive bowel sounds. No rebound or guarding. Neurological: Awake. Alert. Nonfocal, nonlateralizing. Skin: No rash. Normal color. No pallor. Musculoskeletal: No pedal edema. Full range of motion extremities. Const Vital Signs: 08/01/23 12:44 08/01/23 13:04 08/01/23 13:05 Temperature 97.9 F Temperature Source Temporal Pulse Rate 70 70 Respiratory Rate 20 H 19 H Respiratory Effort Short of Breath Respiratory Depth Respiratory Pattern Normal Blood Pressure 129/61 H 135/99 H Blood Pressure Mean 83 111 Pulse Ox 81 92 Oxygen Delivery Method Room Air Nasal Cannula Oxygen Flow Rate (L/min) 3 08/01/23 13:05 08/01/23 13:40 08/01/23 13:40 Temperature Temperature Source Pulse Rate 64 Respiratory Rate 15 Respiratory Effort Short of Breath Respiratory Depth Normal Respiratory Pattern Normal Normal Blood Pressure Blood Pressure Mean Pulse Ox 95 Oxygen Delivery Method Nasal Cannula Nasal Cannula Oxygen Flow Rate (L/min) 3 3 08/01/23 13:21 Temperature Temperature Source Pulse Rate Respiratory Rate Respiratory Effort Respiratory Depth Respiratory Pattern Blood Pressure Blood Pressure Mean Pulse Ox 92 Oxygen Delivery Method Nasal Cannula Oxygen Flow Rate (L/min) 3 MDM MDM MDM Narrative Medical decision making narrative: Concern is for pneumonia versus pneumothorax. I have low suspicion for pulmonary embolism as he is not tachycardic. Patient was 81% on room air so is placed on nasal cannula oxygen. He will be administered ipratropium and albuterol aerosolized treatment along with Solu-Medrol for suppose it/assume COPD. Given his hypoxia, I do feel chest x-ray is indicated to help rule out pneumothorax. I will also obtain blood work to make sure he is not profoundly anemic although clinically on exam he does not appear that way. I have low suspicion for CHF as he does not have that in his history and he does not appear fluid overloaded. I reviewed his laboratory work and he has normal white count 9.2, hemoglobin normal at 14.8, hematocrit 42.8, platelet count normal at 175. Review of his electrolyte panel shows potassium low at 3.1, and he was administered 40 mill equivalents orally of potassium. Chloride is normal at 103. BUN normal at 13 with creatinine 1.10. Glucose appropriately elevated at 117 with a normal anion gap of 7. High-sensitivity troponin is 8. Although BNP is slightly elevated at 198, this appears to be around his baseline with previous values being elevated. Chest x-ray in 1 view interpreted by myself shows no evidence of pneumothorax or consolidation, but there is interstitial edema versus opacities. He will be treated as a pneumonia with azithromycin and Zithromax intravenously. She did ambulate to the bathroom without his oxygen, and when he was placed back on the monitor/pulse ox he was low in the 70s with good waveform. Subjectively he states he did not feel short of breath, however. Given his hypoxia, I discussed the patient with Dr. Jasmine Tan for admission to the PCU. She would like a D-dimer added and will check this as well. Patient had received albuterol and Solu-Medrol. He may have undiagnosed COPD as he quit smoking in 1999. Disposition is admit in stable condition. History & Record Review Discussion w/independent historian: Patient and Family Lab Data Attestation: I reviewed the patient's lab results. Labs: Laboratory Results - last 24 hr 08/01/23 13:10 WBC 9.2 RBC 4.78 Hgb 14.8 Hct 42.8 MCV 89.5 MCH 31.0 MCHC 34.6 RDW Std Deviation 46.8 H RDW Coeff of Jihan 14.3 Plt Count 175 MPV 11.5 Immature Gran % (Auto) 0.900 Neut % (Auto) 82.0 H Lymph % (Auto) 5.7 L Davison % (Auto) 10.3 H Eos % (Auto) 0.9 Baso % (Auto) 0.2 Absolute Neuts (auto) 7.6 Absolute Lymphs (auto) 0.52 L Nucleated RBC % 0 Differential Comment SCANNED Sodium 136 Potassium 3.1 L Chloride 103 Carbon Dioxide 26.0 Anion Gap 7 BUN 13 Creatinine 1.10 Estim Creat Clear Calc 50.69 Est GFR (MDRD) Af Amer 82 Est GFR (MDRD) Non-Af 68 BUN/Creatinine Ratio 11.8 Glucose 117 H Calcium 8.8 Troponin I High Sens 8 B-Natriuretic Peptide 198.3 H Radiography Chest X-Ray - ED: 1 View and Read by ED Physician Diagnostic Testing: Clinical Impression(s) from Imaging Studies Chest X-Ray 08/01/23 13:55 IMPRESSION: Mild interstitial opacities in the lungs, which may be chronic or inflammatory. Electronically Signed: Demi Briseno MD at 15:00 EST Reading Location ID and State: [facility] / [place] Tel , Service support , Discharge Plan Dx/Rx/DC Orders Clinical Impression: Hypoxia, Pneumonia, SOB (shortness of breath), Hypokalemia Disposition Disposition: Acute Care [facility]
[2023-08-01] MEDS: Ipratropium/Albuterol Sulfate 3 ML AMPUL.NEB INHALATION ×2 (13:36→22:04)
[2023-08-01] MEDS: MethylPREDNISolone 125 MG/2 ML Vial IV (13:36)
[2023-08-01 13:51] LABS: Absolute Lymphocyte Count 0.52 X10^3/uL (0.83-4.51); Absolute Neutrophil Count 7.6 X10^3/uL (2.0-7.7); Basophil# 0.02 X10^3/uL; Basophil% 0.2 % (0-1); Eosinophil# 0.08 X10^3/uL; Eosinophils% 0.9 % (0-5); Hematocrit 42.8 % (40-54); Hemoglobin 14.8 g/dL (13.0-16.5); Lymphocyte # 0.52 X10^3/ul (0.83-4.51); Lymphocyte % 5.7 % (19-41); Mean Corp Hgb Conc 34.6 g/dL (32-36); Mean Corpuscular Volume 89.5 fL (80-94); Mean Platelet Vol. 11.5 fl (6.2-12.0); Monocyte# 0.95 X10^3/uL; Monocyte% 10.3 % (0-10); NRBC Flagged by Analyzer 0 % (0-5); Neutrophil # 7.55 X10^3/uL (2.7-7.7); POSITIVE DIFFERENTIAL YES; Platelet Count 175 K/mm3 (150-450); RBC Distribution Width CV 14.3 % (11.6-14.6); RBC Distribution Width SD 46.8 fl (35.1-43.9); Red Blood Count 4.78 M/mm3 (4.6-6.2); White Blood Count 9.2 K/mm3 (4.4-11.0)
[2023-08-01 13:53] LABS: Differential Indicated SCAN CRITERIA MET
--- NOTE | 2023-08-01 13:55 | RAD_ITS ---
HISTORY: Shortness of breath. TECHNIQUE: XR Chest 1 View. COMPARISON: 08/25/2020. FINDINGS: CARDIOMEDIASTINAL BORDERS: Cardiac silhouette within normal limits in size. Mediastinal contour unremarkable with calcification of the aortic knob. LUNGS: Mild interstitial opacities in the mid to lower lungs. PLEURA: No pleural effusion or pneumothorax seen. OSSEOUS STRUCTURES: Degenerative change. Chronic small metallic foreign body in the right chest. RAD/Chest 1 View (Portable) IMPRESSION: Mild interstitial opacities in the lungs, which may be chronic or inflammatory. Electronically Signed: Demi Briseno MD at 15:00 EST ,
[2023-08-01 14:12] LABS: Anion Gap 7 (5-15); BUN 13 mg/dL (7-18); BUN/Creat Ratio 11.8 RATIO (10-20); Calcium,Total 8.8 mg/dL (8.5-10.1); Chloride 103 mmol/L (98-107); EST Glomerular Filtration Rate 68 mL/min (>60); Est Glom Filt Rate - Afr Amer 82 mL/min (>60); Estimated Creatinine Clearance 50.69 ml/min; Glucose 117 mg/dL (74-106); Potassium 3.1 mmol/L (3.5-5.1); Sodium Level 136 mmol/L (136-145); Troponin-I HS 8 pg/mL (3.0-78.0)
[2023-08-01 14:20] LABS: Differential Comment SCANNED
[2023-08-01 14:39] LABS: BNP,B-Type NATRIURETIC PEPTIDE 198.3 pg/mL (0-100)
[2023-08-01] MEDS: Ceftriaxone 2 GM in 0.9% Normal Saline (50mL MB+) 50 ML IV (15:59)
[2023-08-01] MEDS: Potassium Chloride Oral Tablet 20 MEQ 40 MEQ PO (16:13)
[2023-08-01 16:16] LABS: D-Dimer Quantitative (DVT/PE) 0.47 FEU/ug/m (0.27-0.49)
--- NOTE | 2023-08-01 16:20 | NURSING ---
PCU ALLEN HYPOXIA, SHORTNESS OF BREATH
[2023-08-01] MEDS: Azithromycin 500 MG in Dextrose 5%-Water (250mL Bag) 250 ML 250 MG IV (16:57)
--- NOTE | 2023-08-01 18:01 | PCM.HP.STD ---
HPI - General General Date of Admission: 08/01/23 Date of Service: 08/01/23 Chief Complaint: Shortness of breath, hypoxia HPI Narrative CLARK LYLES, is a 87 M with a history of hypertension, CAD, PVD, BPH who presented to [facility] 08/01/2023 with shortness of breath and generalized weakness. Over 1 week he had cough with yellow sputum and shortness of breath without fevers or chills. Feels he is slightly improved from before however his daughter checked his pulse ox at home and his saturations were in the 80s and he was brought to the ED and placed on O2 with improvement. Will count within normal limits but did have neutrophil predominance, potassium 3.1 and BNP 198, similar to previous, with normal troponin and D-dimer and lab workup otherwise unremarkable. Chest x-ray with mild interstitial opacities in the lungs. When patient got up to ambulate to the bathroom O2 sat went to the 70s so he was given Rocephin and azithromycin and hospitalist contacted for admission. Patient evaluated at bedside and reports history as above, does still have productive cough and feels weak but overall feels better than he did before. Does have smoking history but quit 24 years ago and denies any history of CHF or COPD. No fevers or chills, no other acute complaints. [facility] Medical History (Updated 08/01/23 @ 20:[address] Jasmine Tan MD) Acute respiratory failure with hypoxia Anxiety Anxiety and depression Atherosclerosis of coronary artery of [place] heart without angina pectoris BPH (benign prostatic hyperplasia) Chronic anemia COVID-19 virus detected (08/23/20) Diverticulosis Essential (primary) hypertension GERD (gastroesophageal reflux disease) GI bleed (12/2019) Hyperlipidemia Hypoxia Incontinence Peripheral vascular occlusive disease Pneumonia due to COVID-19 virus Home Medications citalopram 20 mg tablet 20 mg PO DAILY DEPRESSION 03/17/14 [History Last Taken 08/01/23] multivitamin 1 ea PO DAILY HEALTH MINENANCE 05/16/17 [History Last Taken 08/01/23] amlodipine 10 mg tablet 10 mg PO DAILY BLOOD PESSURE 09/04/19 [History Last Taken 08/01/23] tamsulosin 0.4 mg capsule 0.4 mg PO DAILY PROSTATE 09/04/19 [History Last Taken 08/01/23] niacin 500 mg capsule,extended release 500 mg PO DAILY SUPPLEMENT 09/16/19 [History Last Taken 08/01/23] ascorbic acid (vitamin C) 1,000 mg tablet 1,000 mg PO DAILY SUPPLEMENT 01/18/20 [History Last Taken 08/01/23] atorvastatin 10 mg tablet 10 mg PO DAILY CHOLESTEROL 08/25/20 [History Last Taken 08/01/23] clopidogrel 75 mg tablet 75 mg PO DAILY BLOOD THINNER 08/25/20 [History Last Taken 08/01/23] finasteride 5 mg tablet 5 mg PO DAILY PROSTATE 08/26/20 [History Last Taken 08/01/23] hydrochlorothiazide 25 mg tablet 25 mg PO DAILY BLOOD PRESSURE #90 tabs 09/20/20 [Rx Last Taken 08/01/23] aspirin 81 mg tablet,delayed release (Adult Aspirin Regimen) 81 mg PO DAILY HEART HEALTH 04/25/21 [History Last Taken 08/01/23] buspirone 5 mg tablet 5 mg PO TID 08/01/23 [History Last Taken 08/01/23] hydrocodone-acetaminophen 5-325mg 5mg-325mg 1 tab PO Q6H PRN PAIN 08/01/23 [History Last Taken Unknown] latanoprost 0.005 % eye drops 1 drp ophthalmic (eye) QHS GLAUCOMA 08/01/23 [History Last Taken 07/31/23] metoprolol succinate 25 mg tablet,extended release 24 hr 25 mg PO DAILY BLOOD PRESSURE 08/01/23 [History Last Taken 08/01/23] omeprazole 40 mg capsule,delayed release 40 mg PO DAILY ACID REFLUX 08/01/23 [History Last Taken 08/01/23] trazodone 50 mg tablet 50 mg PO QHS SLEEP 08/01/23 [History Last Taken 08/01/23] Lactobacillus acidophilus 1 billion cell capsule 1,000 mmu cells PO DAILY #30 caps 08/04/23 [Rx Last Taken Unknown] cefdinir 300 mg capsule 300 mg PO BID #10 caps 08/04/23 [Rx Last Taken Unknown] guaifenesin 1,200 mg tablet, extended release 12 hr (Mucus Relief ER) 1,200 mg PO BID #20 tabs 08/04/23 [Rx Last Taken Unknown] prednisone 20 mg tablet 20 mg PO BID #10 tabs 08/04/23 [Rx Last Taken Unknown] Allergy/AdvReac Type Severity Reaction Status Date / Time Sulfa (Sulfonamide Allergy Rash Verified 08/01/23 12:45 Antibiotics) lisinopril AdvReac Other Verified 08/01/23 12:45 Family History Father CVA (cerebral vascular accident) Mother CVA (cerebral vascular accident) Hypertension Surgical History History of angioplasty of peripheral vessel (08/2017) History of colonoscopy (12/2019) History of coronary artery stent placement (09/08/19) History of esophagogastroduodenoscopy (EGD) (12/2019) History of herniorrhaphy Social History Smoking Status: Former smoker ROS ROS Narrative General: Denies fever/chills HENT: Denies headache, denies stuffy nose, denies sore throat EYES: Denies changes in vision Resp: Productive cough and shortness of breath Cardiac: Denies chest pain GI: denies changes in bowel, denies nausea/vomiting : Denies changes in urination Extremity: Denies swelling MSK: Some generalized weakness Neuro: Denies any numbness/tingling Heme: Denies any bleeding or bruising Skin: Denies rashes Psychiatric: No complaints voiced Vital Signs Vital Signs Vital Signs: 08/01/23 12:44 08/01/23 13:04 08/01/23 13:05 Temperature 97.9 F Temperature Source Temporal Pulse Rate 70 70 Respiratory Rate 20 H 19 H Respiratory Effort Short of Breath Respiratory Depth Respiratory Pattern Normal Blood Pressure 129/61 H 135/99 H Blood Pressure Mean 83 111 Blood Pressure Source Blood Pressure Position Blood Pressure Location Pulse Ox 81 92 Oxygen Delivery Method Room Air Nasal Cannula Oxygen Flow Rate (L/min) 3 08/01/23 13:05 08/01/23 13:40 08/01/23 13:40 Temperature Temperature Source Pulse Rate 64 Respiratory Rate 15 Respiratory Effort Short of Breath Respiratory Depth Normal Respiratory Pattern Normal Normal Blood Pressure Blood Pressure Mean Blood Pressure Source Blood Pressure Position Blood Pressure Location Pulse Ox 95 Oxygen Delivery Method Nasal Cannula Nasal Cannula Oxygen Flow Rate (L/min) 3 3 08/01/23 13:21 08/01/23 16:16 08/01/23 16:17 Temperature Temperature Source Pulse Rate 74 77 Respiratory Rate 24 H Respiratory Effort Respiratory Depth Respiratory Pattern Blood Pressure 150/76 H 150/76 H Blood Pressure Mean 100 100 Blood Pressure Source Blood Pressure Position Blood Pressure Location Pulse Ox 92 92 91 Oxygen Delivery Method Nasal Cannula Nasal Cannula Oxygen Flow Rate (L/min) 3 5 08/01/23 17:44 Temperature 97.7 F L Temperature Source Oral Pulse Rate 71 Respiratory Rate 18 Respiratory Effort Respiratory Depth Respiratory Pattern Blood Pressure 143/74 H Blood Pressure Mean 97 Blood Pressure Source Monitor Blood Pressure Position Semi-Fowlers Blood Pressure Location Right Arm Pulse Ox 93 Oxygen Delivery Method Nasal Cannula Oxygen Flow Rate (L/min) 5 Weight Weight: 71.7 kg Body Mass Index (BMI) 22.6 Physical Exam Narrative General: Alert, oriented, no apparent distress HEENT: Atraumatic, normocephalic Eyes: Anicteric, normal conjunctiva, extraocular movements grossly intact Neck: Supple Respiratory: Somewhat diminished at the bases, some scattered wheezing, normal respiratory effort Cardiovascular: Regular rate and rhythm GI: Soft, nontender, nondistended Extremities: No edema Musculoskeletal: Moving all extremities Neuro: No overt focal neurological deficits Skin: No rashes appreciated Psych: Cooperative Results Lab / Micro Data 08/04/23 06:58 08/04/23 06:58 Labs: Laboratory Results - last 24 hr 08/01/23 13:10: WBC 9.2, RBC 4.78, Hgb 14.8, Hct 42.8, MCV 89.5, MCH 31.0, MCHC 34.6, RDW Std Deviation 46.8 H, RDW Coeff of Jihan 14.3, Plt Count 175, MPV 11.5, Immature Gran % (Auto) 0.900, Neut % (Auto) 82.0 H, Lymph % (Auto) 5.7 L, Dickey % (Auto) 10.3 H, Eos % (Auto) 0.9, Baso % (Auto) 0.2, Absolute Neuts (auto) 7.6, Absolute Lymphs (auto) 0.52 L, Nucleated RBC % 0, Differential Comment SCANNED, D-Dimer Quant (PE/DVT) 0.47, Sodium 136, Potassium 3.1 L, Chloride 103, Carbon Dioxide 26.0, Anion Gap 7, BUN 13, Creatinine 1.10, Estim Creat Clear Calc 50.69, Est GFR (MDRD) Af Amer 82, Est GFR (MDRD) Non-Af 68, BUN/Creatinine Ratio 11.8, Glucose 117 H, Calcium 8.8, Troponin I High Sens 8, B-Natriuretic Peptide 198.3 H Micro: Microbiology 08/01/23 13:50 Nasal Secretion SARS-CoV-2 & FLU Antigen (Rapid) - Final Imagaing Radiology Impression Chest X-Ray 08/01/23 13:55 IMPRESSION: Mild interstitial opacities in the lungs, which may be chronic or inflammatory. Electronically Signed: Demi Briseno MD at 15:00 EST Reading Location ID and State: [facility] / [place] Tel , Service support , Assessment & Plan Assessment/Plan (1) SOB (shortness of breath): (2) Hypoxia: (3) Hypokalemia: (4) History of coronary artery stent placement: (5) History of angioplasty of peripheral vessel: (6) Essential (primary) hypertension: (7) BPH (benign prostatic hyperplasia): PLAN: Plan #Hypoxia possibly secondary to viral illness or CAP -CXR with some interstitial opacities in the lungs of unclear chronicity however patient with increased shortness of breath and cough with productive yellow sputum and is hypoxic for unclear reasons -Troponin within normal limits, BNP slightly elevated but similar to previous and does not appear overtly overloaded and D-dimer negative leading primary pulmonary process is most likely culprit for hypoxia especially given symptoms -DuoNebs and as needed albuterol -Sputum culture, COVID and flu rapid negative will get COVID PCR, respiratory panel -Urine antigens -Mucinex, I/S -Rocephin and azithromycin as this was already started and will get Pro-Macario, further antibiotic decision pending above results -While cardiac etiology less likely given slight elevation in BNP and nonspecific chest x-ray findings will obtain echo, last 1 in 2020 with stage I diastolic dysfunction #Hx CAD s/p Stenting/PAD -Continue Plavix, aspirin,, statin, beta-becka #HTN -Continue home medications aside from HCTZ given hypokalemia # Hypokalemia -Replaced -Hold home HCTZ # BPH -Continue tamsulosin and finasteride #GERD -Continue PPI # Depression/anxiety -Continue trazodone, citalopram, Anabel Tan MD Charges/Coding Visit Charges Inpatient E&M: 41363 Init Hosp L2
--- NOTE | 2023-08-01 20:23 | ECHOD_ITS ---
Reason For Study: Dyspnea/SOB Procedure This was a 2D Doppler, Color Flow transthoracic echocardiogram. Exam performed portable in patient room. Left Ventricle Normal LV size. Mild concentric left ventricular hypertrophy. The left ventricular ejection fraction is 65 %. Diastolic function is indeterminate. Right Ventricle Normal right ventricle. Atria The left atrium is moderately enlarged. Normal right atrium. Mitral Valve Trivial mitral valve insufficiency. Tricuspid Valve Moderate (2+) tricuspid valve insufficiency. Right ventricular systolic pressure estimated to be 75 mmHg. Aortic Valve Aortic sclerosis, no stenosis. Pulmonic Valve The pulmonic valve is not well visualized. Great Vessels Normal sized aortic root. Pericardium/Pleural No pericardial effusion. MMode/2D Measurements & Calculations LVIDd: 4.8 cm IVSd: 1.1 cm Ao root diam: 3.3 cm LVIDs: 3.1 cm LVPWd: 1.3 cm LA dimension: 4.9 cm RVDd: 4.0 cm FS: 35.7 % LAV(MOD-bp): 67.4 ml LVAd ap4: 34.7 cm2 SV(MOD-sp4): 65.8 ml LAV(MOD-bp) Indexed: 36.0 ml/m2 LVLd ap4: 8.4 cm LAV(MOD-sp2): 66.5 ml EDV(MOD-sp4): 116.0 ml LAV(MOD-sp4): 65.5 ml EDV(sp4-el): 122.3 ml LVAs ap4: 20.3 cm2 LVLs ap4: 7.0 cm ESV(MOD-sp4): 50.2 ml ESV(sp4-el): 50.0 ml EF(MOD-sp4): 56.7 % EF(sp4-el): 59.1 % SV(sp4-el): 72.3 ml LA A4 area: 22.1 cm2 RA A4 area: 17.6 cm2 TAPSE: 2.4 cm Time Measurements MV dec time: 0.14 sec Doppler Measurements & Calculations MV E max roly: 75.2 cm/sec Lat Peak E' Roly: 13.7 cm/sec Med Peak E' Roly: 10.2 cm/sec MV A max roly: 84.3 cm/sec E/E' lat: 5.5 E/E' med: 7.4 MV E/A: 0.89 MV V2 max: 112.2 cm/sec MV P1/2t max roly: 96.9 cm/sec Ao V2 max: 135.7 cm/sec MV max P.0 mmHg MV P1/2t: 52.8 msec Ao max P.4 mmHg MV V2 mean: 61.5 cm/sec MV dec slope: 537.7 cm/sec2 Ao V2 mean: 84.5 cm/sec MV mean P.8 mmHg Ao mean P.4 mmHg MV V2 VTI: 31.0 cm MVA(P1/2t): 4.2 cm2 Ao V2 VTI: 29.0 cm AV (velocity ratio): 0.89 LV V1 max: 103.9 cm/sec PA V2 max: 76.5 cm/sec TR max roly: 386.1 cm/sec LV V1 max P.3 mmHg TR max P.6 mmHg LV V1 mean P.1 mmHg LV V1 mean: 67.7 cm/sec LV V1 VTI: 25.7 cm ECHO/Echo Complete Interpretation Summary Mild concentric left ventricular hypertrophy. The left ventricular ejection fraction is 65 %. Diastolic function is indeterminate. The left atrium is moderately enlarged. Moderate (2+) tricuspid valve insufficiency. Right ventricular systolic pressure estimated to be 75 mmHg. Ordering Physician: Jasmine Tan Performed By: Ubaldo Tobias RCS
[2023-08-01 21:25] LABS: Procalcitonin 0.07 ng/mL (0.00-0.09)
[2023-08-01] MEDS: traZODone 50 MG Tablet PO (21:25)
[2023-08-01] MEDS: guaiFENesin 1,200 MG Tablet 1200 MG PO (21:25)
[2023-08-01] MEDS: busPIRone 5 MG Tablet PO (21:25)
--- OUTSIDE RECORDS SUMMARY | 2023-08-01 21:57 | XMS RPT_ITS | CCD ---
Author Name Unknown Address [address] [place] [address] Organization [facility] Care Team Providers Care Last Turner Name Role Phone Quan Mackenzie MD Unavailable Mela Patel Unavailable Unavailable Anjelica Walden Unavailable Unavailable Durbin MARCIACRadha Primary Care Provider [phone] Durbin Radha BIRD Primary Care Provider [phone] Durbin Radha BIRD Primary Care Provider [phone] DURBIN, M JULIEN Primary Care Unavailable DURBIN, M JULIEN Attending Unavailable DURBIN, M JULIEN Primary Care Unavailable ATHY, KIMBERLEE R Referring Unavailable DURBIN, M JULIEN Primary Care Unavailable DURBIN, M JULIEN Primary Care Unavailable DURBIN, M JULIEN Attending Unavailable DURBIN, M JULIEN Referring Unavailable DURBIN, M JULIEN Primary Care Unavailable DURBIN, M JULIEN Primary Care Unavailable DURBIN, M JULIEN Attending Unavailable DURBIN, M JULIEN Primary Care Unavailable DURBIN, M JULIEN Referring Unavailable DURBIN, M JULIEN Attending Unavailable DURBIN, M JULIEN Primary Care Unavailable DURBIN, M JULIEN Primary Care Unavailable DURIBN, M JULIEN Referring Unavailable DURBIN, M JULIEN Primary Care Unavailable DURBIN, M JULIEN Referring Unavailable DURBIN, M JULIEN Primary Care Unavailable DURBIN, M JULIEN Attending Unavailable DURBIN, M JULIEN Primary Care Unavailable DURBIN, M JULIEN Attending Unavailable DURBIN, M JULIEN Primary Care Unavailable DURBIN, M JULIEN Attending Unavailable DURBIN, M JULIEN Primary Care Unavailable Allergies Allergy Classification Reported Allergen(s) Allergy Type Date of Onset Reaction(s) Facility (20 sources) lisinopril; Translations: [LISINOPRIL] Drug Allergy 12-28-2009 Cough [facility] Work Phone: (6 sources) sulfADIAZINE Drug Allergy 05-08-2017 [facility] Work Phone: (19 sources) Sulfonamides (Antibiotic); Translations: [SULFA (SULFONAMIDE ANTIBIOTICS)] Drug Allergy 03-09-2006 [facility] Medications Current Medications Medication Drug Class(es) Dates Sig (Normalized) Sig (Original) atorvastatin 10 mg oral tablet (20 sources) HMG-CoA Reductase Inhibitor Start: 08-07-2023 take 1 tablet by mouth once daily atorvastatin (LIPITOR) 10 mg tablet Indications: S/P primary angioplasty with coronary stent , Hyperlipidemia LDL goal , PAD (peripheral artery disease) (HCC) Take 1 tablet by mouth once daily. 90 tablet 3 08/07/2023 Active Completed/Discontinued Medications Medication Drug Class(es) Dates Sig (Normalized) Sig (Original) acetaminophen 325 mg / HYDROcodone bitartrate 5 mg oral tablet (7 sources) Opioid Agonist End: 06-28-2023 take 1 tablet by mouth every eight hours as needed HYDROcodone-acetami nophen (NORCO) 5-325 mg per tablet Take 1 tablet by mouth every 8 hours as needed for pain. 0 06/28/2023 Discontinued Problems Active Problems Problem Classification Problem Date Documented Da te Episodic/Chronic Alcohol-related disorders (1 source) Alcohol abuse, uncomplicated; Translations: [Alcohol use disorder, mild, abuse] Onset: 3 Chronic Anxiety disorders (20 sources) Anxiety state; Translations: [Generalized anxiety disorder] Onset: 9 05-08-2017 Chronic Coronary atherosclerosis and other heart disease (20 sources) Angina pectoris; Translations: [Angina pectoris, unspecified] Onset: 0 12-22-2020 Chronic Deficiency and other anemia (19 sources) Iron deficiency anemia due to blood loss; Translations: [Iron deficiency anemia secondary to blood loss (chronic)] Onset: 0 01-27-2020 Chronic Disorders of lipid metabolism (20 sources) Hyperlipidemia; Translations: [Hyperlipidemia, unspecified] Onset: 6 05-08-2017 Chronic Diverticulosis and diverticulitis (6 sources) Diverticular disease of colon; Translations: [Diverticulosis of large intestine without perforation or abscess without bleeding] Onset: 7 05-08-2017 Chronic Esophageal disorders (20 sources) Gastroesophageal reflux disease; Translations: [Gastro-esophageal reflux disease without esophagitis] Onset: 1 05-08-2017 Chronic Essential hypertension (20 sources) Essential hypertension; Translations: [Benign essential hypertension] Onset: 6 05-08-2017 Chronic Hyperplasia of prostate (20 sources) Benign prostatic hyperplasia; Translations: [Benign prostatic hyperplasia without lower urinary tract symptoms] Onset: 3 05-08-2017 Chronic Miscellaneous mental health disorders (4 sources) Chronic insomnia; Translations: [Psychophysiologic insomnia] Onset: 3 Chronic Other bone disease and musculoskeletal deformities (1 source) Somatic dysfunction of left sacroiliac joint; Translations: [Segmental and somatic dysfunction of sacral region] 02-08-2023 Episodic Other circulatory disease (5 sources) Peripheral arterial occlusive disease; Translations: [Peripheral vascular disease, unspecified] Onset: 7 05-08-2017 Chronic Other gastrointestinal disorders (1 source) Diarrhea; Translations: [Diarrhea, unspecified] 06-28-2023 Episodic Other gastrointestinal disorders (1 source) Diarrhea, unspecified; Translations: [Diarrhea, unspecified type] Onset: 3 Episodic Other hereditary and degenerative nervous system conditions (19 sources) Restless legs; Translations: [Restless legs syndrome] Onset: 0 01-27-2020 Chronic Other nervous system disorders (1 source) Left-sided piriformis syndrome; Translations: [Lesion of sciatic nerve, left lower limb] 02-08-2023 Chronic Other nutritional; endocrine; and metabolic disorders (20 sources) Hyperbilirubinemia; Translations: [Other disorders of bilirubin metabolism] Onset: 6 05-08-2017 Chronic Other nutritional; endocrine; and metabolic disorders (1 source) Other disorders of bilirubin metabolism; Translations: [Hyperbilirubinemia] Onset: 6 Chronic Other nutritional; endocrine; and metabolic disorders (1 source) Anorexia; Translations: [Loss of appetite] Onset: 3 Episodic Parkinson`s disease (20 sources) Parkinson's disease; Translations: [Parkinson's disease] Onset: 7 07-11-2017 Chronic Parkinson`s disease (1 source) Parkinson`s disease; Translations: [Parkinson's disease without dyskinesia, with fluctuating manifestations] Onset: 7 Peripheral and visceral atherosclerosis (20 sources) Peripheral vascular disease, unspecified; Translations: [Peripheral vascular disease, unspecified] Onset: 4 02-28-2014 Chronic Superficial injury; contusion (1 source) Abrasion, right lower leg, initial encounter; Translations: [Abrasion or friction burn of hip, thigh, leg, and ankle, without mention of infection] 05-25-2023 Episodic Past or Other Problems Problem Classification Problem Date Documented Da te Episodic/Chronic Abdominal hernia (5 sources) Right inguinal hernia ; Translations: [Unilateral inguinal hernia, without obstruction or gangrene, not specified as recurrent] Onset: 05-08-2017 05-08-2017 Episodic Coronary atherosclerosis and other heart disease (1 source) Presence of coronary angioplasty implant and graft; Translations: [S/P primary angioplasty with coronary stent] Onset: 06-27-2021 Episodic E Codes: Fall (18 sources) Fall; Translations: [Unspecified fall, initial encounter] Onset: 09-20-2021 09-20-2021 Episodic Gastritis and duodenitis (6 sources) Acute gastritis; Translations: [Acute gastritis without bleeding] Onset: 05-08-2017 05-08-2017 Episodic Genitourinary symptoms and ill-defined conditions (1 source) Nocturia; Translations: [Benign prostatic hyperplasia with nocturia] Onset: 03-17-2013 Episodic Other circulatory disease (5 sources) Stented artery; Translations: [Peripheral vascular angioplasty status with implants and grafts] Onset: 05-08-2017 05-08-2017 Episodic Other screening for suspected conditions (not mental disorders or infectious disease) (2 sources) Raised prostate specific antigen; Translations: [Elevated prostate specific antigen [PSA]] Onset: 11-29-2022 Episodic Spondylosis; intervertebral disc disorders; other back problems (2 sources) Lumbago with sciatica; Translations: [Lumbago with sciatica, unspecified side] Onset: 01-31-2023 Episodic Results Test Name Value Interpretation Reference Range Facil ity Vital Signs Date Time Vital Sign Value Performing Clinician Facility 06-28-2023 08:57-0500 Body weight 70.94 kg NA Durbin PA-C Work Phone: [facility] 06-28-2023 08:57-0500 Diastolic blood pressure 70 mm[Hg] NA Durbin PA-C Work Phone: [facility] 06-28-2023 08:57-0500 Heart rate 60 /min NA Durbin PA-C Work Phone: [facility] 06-28-2023 08:57-0500 Respiratory rate 16 /min NA Durbin PA-C Work Phone: [facility] 06-28-2023 08:57-0500 SaO2% (BldA) [Mass fraction] 97 % NA Durbin PA-C Work Phone: [facility] 06-28-2023 08:57-0500 Systolic blood pressure 122 mm[Hg] NA Durbni PA-C Work Phone: [facility] 05-25-2023 11:07-0400 Body temperature 98.1 [degF] Jair Marvin MD Work Phone: [facility] 05-25-2023 11:07-0400 Body weight 71.67 kg Jair Marvin MD Work Phone: [facility] 05-25-2023 11:07-0400 Diastolic blood pressure 69 mm[Hg] Jair Marvin MD Work Phone: [facility] 05-25-2023 11:07-0400 Heart rate 70 /min Jair Marvin MD Work Phone: [facility] 05-25-2023 11:07-0400 Respiratory rate 18 /min Jair Marvin MD Work Phone: [facility] 05-25-2023 11:07-0400 SaO2% (BldA) [Mass fraction] 93 % Jair Marvin MD Work Phone: [facility] 05-25-2023 11:07-0400 Systolic blood pressure 132 mm[Hg] Jair Marvin MD Work Phone: [facility] 02-08-2023 09:28-0400 Body weight 71.67 kg NA Durbin PA-C Work Phone: [facility] 02-08-2023 09:28-0400 Diastolic blood pressure 80 mm[Hg] NA Durbin PA-C Work Phone: [facility] 02-08-2023 09:28-0400 Heart rate 56 /min NA Durbin PA-C Work Phone: [facility] 02-08-2023 09:28-0400 Respiratory rate 16 /min NA Durbin PA-C Work Phone: [facility] 02-08-2023 09:28-0400 SaO2% (BldA) [Mass fraction] 96 % NA Durbin PA-C Work Phone: [facility] 02-08-2023 09:28-0400 Systolic blood pressure 148 mm[Hg] NA Durbin PA-C Work Phone: [facility] 01-31-2023 10:43-0400 Body temperature 97.9 [degF] Kimberlee Athy PA-C Work Phone: [facility] 01-31-2023 10:43-0400 Body weight 73.57 kg Kimberlee Athy PA-C Work Phone: [facility] 01-31-2023 10:43-0400 Diastolic blood pressure 86 mm[Hg] Kimberlee Athy PA-C Work Phone: [facility] 01-31-2023 10:43-0400 Heart rate 58 /min Kimberlee Athy PA-C Work Phone: [facility] 01-31-2023 10:43-0400 Respiratory rate 18 /min Kimberlee Athy PA-C Work Phone: [facility] 01-31-2023 10:43-0400 SaO2% (BldA) [Mass fraction] 97 % Kimberlee Athy PA-C Work Phone: [facility] 01-31-2023 10:43-0400 Systolic blood pressure 164 mm[Hg] Kimberlee Athy PA-C Work Phone: [facility] 11-27-2022 14:57-0400 Body weight 73.03 kg NA Durbin PA-C Work Phone: [facility] 11-27-2022 14:57-0400 Diastolic blood pressure 68 mm[Hg] NA Durbin PA-C Work Phone: [facility] 11-27-2022 14:57-0400 Heart rate 57 /min NA Durbin PA-C Work Phone: [facility] 11-27-2022 14:57-0400 SaO2% (BldA) [Mass fraction] 96 % NA Durbin PA-C Work Phone: [facility] 11-27-2022 14:57-0400 Systolic blood pressure 130 mm[Hg] NA Durbin PA-C Work Phone: [facility] 05-31-2017 08:40-0400 BMI (Body Mass Index) 23.11 kg/m2 Quan Mackenzie MD [facility] Work Phone: 05-31-2017 08:40-0400 Body Temperature 97.9 [degF] Quan Mackenzie MD [facility] Work Phone: 05-31-2017 08:40-0400 BP Diastolic 70 mm[Hg] Quan Mackenzie MD [facility] Work Phone: 05-31-2017 08:40-0400 BP Systolic 150 mm[Hg] Quan Mackenzie MD [facility] Work Phone: 05-31-2017 08:40-0400 Height 182.88 cm Quan Mackenzie MD [facility] Work Phone: 05-31-2017 08:40-0400 Pulse (Heart Rate) 74 /min Quan Mackenzie MD [facility] Work Phone: 05-31-2017 08:40-0400 Respiratory Rate 20 /min Quan Mackenzie MD [facility] Work Phone: 05-31-2017 08:40-0400 Weight 77.29 kg Quan Mackenzie MD [facility] Work Phone: 05-08-2017 14:55-0400 BMI (Body Mass Index) 23.08 kg/m2 Quan Mackenzie MD [facility] Work Phone: 05-08-2017 14:55-0400 Body Temperature 97.5 [degF] Quan Mackenzie MD [facility] Work Phone: 05-08-2017 14:55-0400 BP Diastolic 76 mm[Hg] Quan Mackenzie MD [facility] Work Phone: 05-08-2017 14:55-0400 BP Systolic 175 mm[Hg] Quan Mackenzie MD [facility] Work Phone: 05-08-2017 14:55-0400 Height 182.88 cm Quan Mackenzie MD [facility] Work Phone: 05-08-2017 14:55-0400 Pulse (Heart Rate) 67 /min Quan Mackenzie MD [facility] Work Phone: 05-08-2017 14:55-0400 Respiratory Rate 20 /min Quan Mackenzie MD [facility] Work Phone: 05-08-2017 14:55-0400 Weight 77.2 kg Quan Mackenzie MD [facility] Work Phone: Encounters Encounter Date Encounter Type Care Provider Facility Start: 07-10-2023 Refill Radha munoz PA-C Work Phone: [facility] Procedures Date Procedure Procedure Detail Performing Clinician Start: 05-11-2023 Ct angio abd&plvis cntrst mtrl w/wo cntrst img Radha Durbin PA-C Work Phone: Start: 11-27-2022 Urnls dip stick/tabl et rgnt auto w/o microscopy Radha Durbin PA-C Work Phone: Start: 12-22-2020 History of placement of stent for coronary artery disease S/P primary angioplasty with coronary stent NANDA Durbin PA-C Work Phone: History of placement of stent for coronary artery disease S/P primary angioplasty with coronary stent Radha Julien KING-C Work Phone: History of placement of stent for coronary artery disease S/P primary angioplasty with coronary stent Radha Julien KING-C Work Phone: History of placement of stent for coronary artery disease S/P primary angioplasty with coronary stent Radha Julien KING-C Work Phone: Plan of Treatment Date Care Activity Detail Author Start: 06-28-2026 Diabetes Screening Diabetes Screenin [facility] Start: 05-10-2026 Urine microalbumin profile [facility] Start: 11-29-2025 DIABETES SCREEN DIABETES SCREEN [facility] Start: 11-29-2025 Diabetes Screening Diabetes Screenin g [facility] Start: 12-24-2024 DIABETES SCREEN DIABETES SCREEN [facility] Start: 02-09-2024 COVID-19 VACCINE (4 - Pfizer series) COVID-19 VACCINE (4 - Pfizer series) [facility] Immunizations Immunization Date Immunization Notes Care Provider Fa cili 04-30-2023 COVID-19 vaccine, ag e 12+ yr, 2022- season (PFIZER-BIONTECH) NA Durbin PA-C Work Phone: [facility] 04-16-2023 influenza, high dose seasonal, preservative-free NA Durbin PA-C Work Phone: [facility] 05-18-2021 COVID-19 vaccine, ag e 12+ yr (PFIZER-BIONTECH - PURPLE TOP) NA Durbin PA-C Work Phone: [facility] 05-18-2021 influenza (HD-IIV4) vaccine, age 65+ yr, high dose, quadrivalent, PF (FLUZONE HIGH-DOSE) NA Durbin PA-C Work Phone: [facility] 05-18-2021 influenza, high dose seasonal, preservative-free NA Durbin PA-C Work Phone: [facility] 11-01-2020 COVID-19 vaccine, ag e 12+ yr (PFIZER-BIONTECH - PURPLE TOP) NA Durbin PA-C Work Phone: [facility] 10-08-2020 COVID-19 vaccine, ag e 12+ yr (PFIZER-Violet - [facility]) NA Durbin PA-C Work Phone: [facility] 04-26-2020 influenza, high-dose , quadrivalent vaccine (FLUZONE HIGH DOSE QUADRIVALENT) NA Durbin PA-C Work Phone: [facility] 04-24-2018 influenza, high dose seasonal, preservative-free NA Durbin PA-C Work Phone: [facility] 05-14-2017 influenza, high dose seasonal, preservative-free NA Durbin PA-C Work Phone: [facility] 05-10-2016 pneumococcal conjuga te vaccine, 13 valent NA Durbin PA-C Work Phone: [facility] 05-10-2016 tetanus toxoid, redu lane diphtheria toxoid, and acellular pertussis vaccine, adsorbed NA Durbin PA-C Work Phone: [facility] 03-27-2008 pneumococcal polysaccharide vaccine, 23 valent NA Durbin PA-C Work Phone: [facility] Work Phone: Payers Date Payer Category Payer Unknown PRIMETIME PRIMET ELIZABETH O POS [id number] 2017-Present [phone] [address] [place] [address] [facility] [id number] 2017 Unknown PRIMETIME PRIMET ELIZABETH HMO POS [id number] 2017-Present [phone] [address] [place] [address] O [id number] 2017 Unknown [id number] Social History Date Type Detail Facility Start: 07-11-2017 End: 11-27-2022 Tobacco smoking status NHIS Ex-smoker [facility] Work Phone: Start: 12-19-2021 End: 06-28-2023 Alcohol intake Current drinker of alcohol (finding) [facility] Start: 1935 Sex Assigned At Not on file C [facility] Start: 12-13-2021 End: 12-23-2021 Exposure to SARS-CoV-2 (event) Not sure [facility] History of tobacco use Current smoker [facility] Start: 07-11-2017 End: 11-27-2022 Tobacco use and exposure Smokeless tobacco non-user [facility] Start: 11-27-2022 [facility] Start: 12-22-2022 End: 02-08-2023 History of Social function [facility] Start: 12-22-2022 End: 02-08-2023 Tobacco use panel [facility] Adult Depression Screening Assessment 0 [facility] Clinical Notes 01-09-2022 to 07-10-2023 Telephone Encounter - Davina Fajardo - 07/10/2023 9:33 AM ESTTelephone Encounter - Shirley Winters Ma - 07/02/2023 11:07 AM ESTTelephone Encounter - Shirley Winters Ma - 07/02/2023 9:55 AM ESTPatient Instructions Note Date & Type Note Facility 07-10-2023 Miscellaneous Notes Patient has been identified by name and date of : Yes Requested Prescriptions Pending Prescriptions Disp Refills tamsulosin (FLOMAX) 0.4 mg 180 capsule 3 Sig: Take 2 capsules by mouth once daily. RX INSTRUCTIONS: Patient aware RX will be sent to [facility] pharmacy. No need to notify patient. Davina Fajardo documented in this encounter [facility] 07-02-2023 Miscellaneous Notes Left detailed message with daughter. Shirley Winters Ma ----- Message from Radha Durbin PA-C sent at 07/02/2023 7:50 AM EST ----- Please advise WBC mildly elevated. Likely r/t viral infection with recent diarrhea. Thanks, Chaz Durbin PA-C documented in this encounter [facility] 06-28-2023 Note HNO ID: [id number] Author: Radha Durbin PA-C Service: ? Author Type: Physician Fitness Trainer Type: Progress Notes Filed: 06/30/2023 10:26 AM Note Text: 87 year old male with c/o here for 3 month follow up Still having issues with diarrhea, watery to mushy. No pain Moving bowels twice a day, previously once a day. Taking Immodium AD which helps. Has been eating roasted peanuts in shell, several handfuls daily for several months. S This habit seems to correlate with change in bowels. No indications of dehydration or weakness. Coronary artery disease involving shoshone-bannock coronary artery of shoshone-bannock heart without angina pectoris (primary encounter diagnosis) S/p primary angioplasty with coronary stent [facility] Atherosclerosis of [facility]) Essential hypertension, benign Hyperlipidemia ldl goal <100 Pad (peripheral artery disease) ([facility]) Cardiovascular interval hx: Sees [facility]ology: no new records 02/27/2022 exercise myocardial perfusion stress test demonstrated baseline sinus bradycardia with heart rate of 51, regular Wolf protocol x8 minutes with maximum HR 157 bpm, 115% of maximum expected heart rate, workload of 10.1 mEq. Maintain sinus rhythm to test, did not have upsloping ST changes during peak exercise which did not meet criteria for ischemia. Peak blood pressure 180/58 mmHg. Tracer uptake was noted in all areas of the myocardium indicating no areas of reversibility to suggest ischemia. 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 Was recommended to have a screening stress test to insert patency of LAD stent 09/08/2019 cardiac cath: left dominant, EF 50%, single vessel disease mid- LAD 95%, CX< 30%. RCA no disease, mild anterior hypokinesis. PTCA/JAM 2.5 x 32 Promus Synergy LAD 85-0% Dr. Brooks 08/22/2019 presented to ER with chest pain, EKG WNL, cardiac isoenzymes WNL. Had subsequent outpatient stress test with exercise at 10.1 METS, ST depression noted with perfusion showing distal anterior ischemia at high workload. Current meds: Hydrochlorothiazide 25 mg daily Metoprolol succinate 25 mg ER daily Nitroglycerin sublingual 0.4 mg as needed Use of NTG: No Chest pain, arm, jaw pain, neck, or upper back pain suggestive of angina: No. SOB: No Dyspnea with exertion: No orthopnea: No Cough : No racing or irregular heartbeats: No palpitations: No syncopal sx: No Headache: No Unexplainable fatigue No Leg swelling: No Nausea: No diaphoresis: No Heartburn: No Claudication: No Smoking: No Following Low cholesterol, high fiber diet? some If on statin: muscle aches? No If on statin: GI sx or diarrhea? Yes Additional history none. Lab review: Component Latest Ref Rng AND Units 10/26/2020 12/24/2021 11/29/2022 Protein, Total 6.3 - 8.0 g/dL 5.9 (L) 6.3 Albumin 3.9 - 4.9 g/dL 4.2 4.1 Calcium 8.5 - 10.2 mg/dL 9.2 9.4 Bilirubin, Total 0.2 - 1.3 mg/dL 1.2 0.7 Alkaline Phosphatase 38 - 113 U/L 55 50 AST 14 - 40 U/L 22 19 ALT 10 - 54 U/L 16 14 Glucose 74 - 99 mg/dL 125 (H) 105 (H) BUN 9 - 24 mg/dL 15 13 Creatinine 0.73 - 1.22 mg/dL 0.90 0.94 Sodium 136 - 144 mmol/L 142 143 Potassium 3.7 - 5.1 mmol/L 4.0 4.1 Chloride 97 - 105 mmol/L 105 105 CO2 22 - 30 mmol/L 26 24 Anion Gap 9 - 18 mmol/L 11 14 eGFR >=60 mL/min/1.73mA? 84 79 WBC 3.70 - 11.00 k/uL 9.31 8.76 RBC 4.20 - 6.00 m/uL 5.03 5.17 Hemoglobin 13.0 - 17.0 g/dL 15.3 16.1 Hematocrit 39.0 - 51.0 % 46.7 49.3 MCV 80.0 - 100.0 fL 92.8 95.4 MCH 26.0 - 34.0 pg 30.4 31.1 MCHC 30.5 - 36.0 g/dL 32.8 32.7 RDW-CV 11.5 - 15.0 % 14.7 15.3 (H) Platelet Count 150 - 400 k/uL 209 194 MPV 9.0 - 12.7 fL 10.8 11.8 Absolute nRBC <0.01 k/uL <0.01 <0.01 Cholesterol, Total <200 mg/dL 132 134 Triglyceride <150 mg/dL 92 94 HDL Cholesterol >39 mg/dL 35 (L) 39 (L) LDL Cholesterol <100 mg/dL 79 76 Non HDL Cholesterol <130 mg/dL 97 95 Fasting Time hrs 12 12 VLDL Cholesterol <30 mg/dL 18 19 TC:HDL Ratio <5.10 3.77 3.44 LDL:HDL Ratio <2.54 2.26 1.95 Parkinson's disease without dyskinesia, with fluctuating manifestations Current medications: Ropinirole 4 mg 3 times daily: stopped because he felt bad in the mornings. [place] better after he stopped- probably a year ago. Hyperbilirubinemia Gastroesophageal reflux disease, unspecified whether esophagitis present Current medication: Omeprazole 40mg daily. Current symptoms: No appetite, eats small bits, no real meals . Last Mg level if on PPI chronically: 1.9, 04/16/2021. Heartburn is controlled: Yes. Dysphagia: No. Bloody or black stools: No. Bowel changes: No. Last EGD and/or colonoscopy: 08/09/2020. Benign prostatic hyperplasia with nocturia Current medications: Finateride 5 mg daily Tamsulosin 0.4 mg 2 capsules nightly Urine pretty good Maybe 1-2 with nocturia. Anxiety state Current medications: Trazodone 50 mg daily at bedtime Doing be (more content not included)... [facility] 06-28-2023 History of Present illness Narrative 87 year old male with c/o here for 3 month follow up Still having issues with diarrhea, watery to mushy. No pain Moving bowels twice a day, previously once a day. Taking Immodium AD Coronary artery disease involving [place] coronary artery of [place] heart without angina pectoris (primary encounter diagnosis) S/p primary angioplasty with coronary stent Angina p[facility]is [facility]) Atherosclerosis of aorta [facility]) Essential hypertension, benign Hyperlipidemia ldl goal <100 Pad (peripheral artery disease) ([facility]) Cardiovascular interval hx: Sees [facility]: no new records 02/27/2022 exercise myocardial perfusion stress test demonstrated baseline sinus bradycardia with heart rate of 51, regular Wolf protocol x8 minutes with maximum HR 157 bpm, 115% of maximum expected heart rate, workload of 10.1 mEq. Maintain sinus rhythm to test, did not have upsloping ST changes during peak exercise which did not meet criteria for ischemia. Peak blood pressure 180/58 mmHg. Tracer uptake was noted in all areas of the myocardium indicating no areas of reversibility to suggest ischemia. 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 Was recommended to have a screening stress test to insert patency of LAD stent 09/08/2019 cardiac cath: left dominant, EF 50%, single vessel disease mid- LAD 95%, CX< 30%. RCA no disease, mild anterior hypokinesis. PTCA/JAM 2.5 x 32 Promus Synergy LAD 85-0% Dr. Brooks 08/22/2019 presented to ER with chest pain, EKG WNL, cardiac isoenzymes WNL. Had subsequent outpatient stress test with exercise at 10.1 METS, ST depression noted with perfusion showing distal anterior ischemia at high workload. Current meds: Hydrochlorothiazide 25 mg daily Metoprolol succinate 25 mg ER daily Nitroglycerin sublingual 0.4 mg as needed Use of NTG: No Chest pain, arm, jaw pain, neck, or upper back pain suggestive of angina: No. SOB: No Dyspnea with exertion: No orthopnea: No Cough : No racing or irregular heartbeats: No palpitations: No syncopal sx: No Headache: No Unexplainable fatigue No Leg swelling: No Nausea: No diaphoresis: No Heartburn: No Claudication: No Smoking: No Following Low cholesterol, high fiber diet? some If on statin: muscle aches? No If on statin: GI sx or diarrhea? Yes Additional history none. Lab review: Component Latest Ref Rng & Units 10/26/2020 12/24/2021 11/29/2022 Protein, Total 6.3 - 8.0 g/dL 5.9 (L) 6.3 Albumin 3.9 - 4.9 g/dL 4.2 4.1 Calcium 8.5 - 10.2 mg/dL 9.2 9.4 Bilirubin, Total 0.2 - 1.3 mg/dL 1.2 0.7 Alkaline Phosphatase 38 - 113 U/L 55 50 AST 14 - 40 U/L 22 19 ALT 10 - 54 U/L 16 14 Glucose 74 - 99 mg/dL 125 (H) 105 (H) BUN 9 - 24 mg/dL 15 13 Creatinine 0.73 - 1.22 mg/dL 0.90 0.94 Sodium 136 - 144 mmol/L 142 143 Potassium 3.7 - 5.1 mmol/L 4.0 4.1 Chloride 97 - 105 mmol/L 105 105 CO2 22 - 30 mmol/L 26 24 Anion Gap 9 - 18 mmol/L 11 14 eGFR >=60 mL/min/1.73m 84 79 WBC 3.70 - 11.00 k/uL 9.31 8.76 RBC 4.20 - 6.00 m/uL 5.03 5.17 Hemoglobin 13.0 - 17.0 g/dL 15.3 16.1 Hematocrit 39.0 - 51.0 % 46.7 49.3 MCV 80.0 - 100.0 fL 92.8 95.4 MCH 26.0 - 34.0 pg 30.4 31.1 MCHC 30.5 - 36.0 g/dL 32.8 32.7 RDW-CV 11.5 - 15.0 % 14.7 15.3 (H) Platelet Count 150 - 400 k/uL 209 194 MPV 9.0 - 12.7 fL 10.8 11.8 Absolute nRBC <0.01 k/uL <0.01 <0.01 Cholesterol, Total <200 mg/dL 132 134 Triglyceride <150 mg/dL 92 94 HDL Cholesterol >39 mg/dL 35 (L) 39 (L) LDL Cholesterol <100 mg/dL 79 76 Non HDL Cholesterol <130 mg/dL 97 95 Fasting Time hrs 12 12 VLDL Cholesterol <30 mg/dL 18 19 TC:HDL Ratio <5.10 3.77 3.44 LDL:HDL Ratio <2.54 2.26 1.95 Parkinson's disease without dyskinesia, with fluctuating manifestations Current medications: Ropinirole 4 mg 3 times daily: stopped because he felt bad in the mornings. [place] better after he stopped- probably a year ago. Hyperbilirubinemia Gastroesophageal reflux disease, unspecified whether esophagitis present Current medication: Omeprazole 40mg daily. Current symptoms: No appetite, eats small bits, no real meals . Last Mg level if on PPI chronically: 1.9, 04/16/2021. Heartburn is controlled: Yes. Dysphagia: No. Bloody or black stools: No. Bowel changes: No. Last EGD and/or colonoscopy: 08/09/2020. Benign prostatic hyperplasia with nocturia Current medications: Finateride 5 mg daily Tamsulosin 0.4 mg 2 capsules nightly Urine pretty good Maybe 1-2 with nocturia. Anxiety state Current medications: Trazodone 50 mg daily at bedtime Doing better. Trazedone works well. ?hydrocodone? Back, right buttock pain: resolved. HISTORIES FAMILY HISTORY Problem Relation Age of Onset Hypertension Mother Stroke Mother GI Father Stroke Father PAST MEDICAL HISTORY Diagnosis Date Acute gastritis Anxiety state 01/05/2009 BPH (benign prostatic hyperplasia) 03/17/2013 Diverticulosis of colon (without mention of hemorrhage) Diverticulosis Essential hypertension, benign 01/08/2006 GERD (gastroesophageal reflux disease) 01/10/2011 Hemangioma of other sites liver Hyperbilirubinemia 05/10/2016 Hyperlipidemia LDL goal <100 03/28/2016 Parkinson's disease 07/11/2017 PAST SURGICAL HISTORY Procedure Laterality Date COLONOSCOPY FLX DX W/COLLJ SPEC WHEN PFRMD 05/27/2013 Colonoscopy COLONOSCOPY FLX DX W/COLLJ SPEC WHEN PFRMD 01/19/2020 ESOPHAGOGASTRODUODENOSCOPY TRANSORAL DIAGNOSTIC EGD ESOPHAGOGASTRODUODENOSCOPY TRANSORAL DIAGNOSTIC 05/27/2013 EGD ESOPHAGOGASTRODUODENOSCOPY TRANSORAL DIAGNOSTIC 01/19/2020 PAST SURGICAL HISTORY OF Right 05/22/2017 Thu R Inguinal Herniorrhaphy with excison cord lipoma performed by Dr. Robe Mackenzie at [facility] REVSC OPN/PRQ FEM/POP W/STNT/ANGIOP SM VSL 03-18-14 RPR 1ST INGUN HRNA AGE 7 YRS/> REDUCIBLE Hernia repair, inguinal Social History Tobacco Use Smoking status: Former Smokeless tobacco: Never Tobacco comments: quit 1999 Vaping Use Vaping Use: Never used Substance Use Topics Alcohol use: Yes Comment: seldom Drug use: No ACTIVE PROBLEM LIST Essential Hypertension, Benign Anxiety State Gerd (Gastroesophageal Reflux Disease) Bph (Benign Prostatic Hyperplasia) Pad (Peripheral Artery Disease) ([facility]) Hyperlipidemia Ldl Goal <100 Hyperbilirubinemia Parkinson's Disease Angina Pectoris (Hcc) Restless Legs Syndrome Iron Deficiency Anemia Due to Chronic Blood Loss Coronary Artery Disease Involving [place] Coronary Artery of [place] Heart S/P Primary Angioplasty With Coronary Stent Fall From Standing Current Outpatient Medications Medication Sig Dispense Refill traZODone (DESYREL) 50 mg tablet Take 1 tablet by mouth daily at bedtime. 90 tablet 1 omeprazole (PRILOSEC) 40 mg capsule Take 1 capsule by mouth once daily. 90 capsule 3 HYDROcodone-acetaminophen (NORCO) 5-325 mg per tablet Take 1 tablet by mouth every 8 hours as needed for pain. citalopram (CELEXA) 20 mg tablet Take 1 tablet by mouth once daily. 90 tablet 3 busPIRone (BUSPAR) 5 mg tablet Take 1 tablet by mouth three times daily. 90 tablet 1 metoprolol succinate ER (TOPROL XL) 25 mg 24 hr tablet Take 1 tablet by mouth once daily. 90 tablet 3 clopidogrel (PLAVIX) 75 mg tablet Take 1 tablet by mouth once daily. 90 tablet 3 tamsulosin (FLOMAX) 0.4 mg Take 2 capsules by mouth once daily. 180 capsule 3 atorvastatin (LIPITOR) 10 mg tablet Take 1 tablet by mouth once daily. 90 tablet 3 hydroCHLOROthiazide (HYDRODIURIL, ESIDRIX) 25 mg tablet Take 1 tablet by mouth once daily. 90 tablet 3 finasteride (PROSCAR) 5 mg tablet Take 1 tablet by mouth once daily. 90 tablet 3 amLODIPine (NORVASC) 10 mg tablet Take 1 tablet by mouth once daily. 90 tablet 3 rOPINIRole (REQUIP) 4 mg tablet Take 1 tablet by mouth three times daily. 90 tablet 3 nitroglycerin sublingual (NITROQUICK) 0.4 mg SL tablet Dissolve 1 tablet under the tongue every 5 minutes as needed for Chest Pain. 1 Bottle of 25 0 MULTIVITAMIN (MULTIPLE VITAMINS ORAL) Take by mouth once daily. NIACIN 500 MG TAB Take one(1) tablet two(2) times daily. 0 ASPIRIN 81 MG TAB Take one(1) tablet daily. 0 COMPLEX C SR 500 MG-25 MG-25 MG TAB 2 tabs daily 0 No current facility-administered medications for this visit. RSV Vaccine(1 - 1-dose 60+ series) Never done EXAM: BP 122/70 Pulse 60 Resp 16 Wt 70.9 kg (156 lb 6.4 oz) SpO2 97% BMI 22.44 kg/m Pleasant older man in no acute distress. Alert and oriented all spheres. Normal affect and cognition. Speech normal. No deficits to learning or comprehension. Skin warm, dry, pink to lips and nailbeds. Normal turgor. Respirations regular and unlabored. HEENT: NCAT. No scleral icterus or conjunctival injection. TM's clear. Nose and oropharynx free from injection or lesion. Oral membranes moist and pink. No cervical lymph nodes. Thyroid non-tender, no masses, or enlargement. Carotids pulses 2+/4+ without bruits. No JVD with HOB at 30 degrees. Chest is normal shape. Lungs are clear to all pena with good air exchange through out. HRRR without murmur or gallop. No lifts, heaves, or rubs. Abdomen: active bowel sounds throughout, soft, nontender, no masses or organomegaly. No CVAT. Extrem: no clubbing or cyanosis. Edema: none. Extremities are warm and pink with prompt capillary refill. ASSESSMENT/PLAN: 1. Coronary artery disease involving [place] coronary artery of [place]ann[place] heart without angina pectoris - ICD9: 414.01, ICD10: I25.10 (primary diagnosis) 2. S/P primary angioplasty with coronary stent - ICD9: V45.82, ICD10: Z95.5 3. Angina pectoris (HCC) - ICD9: 413.9, ICD10: I20.9 4. Atherosclerosis of aorta (HCC) - ICD9: 440.0, ICD10: I70.0 5. Essential hypertension, benign - ICD9: 401.1, ICD10: I10 Stable, continue meds. No ischemic. 6. Hyperlipidemia LDL goal <100 - ICD9: 272.4, ICD10: E78.5 - Controlled - Continue current medications - Counseled on healthy diet and regular exercise 7. PAD (peripheral artery disease) ([facility]) - ICD9: 443.9, ICD10: I73.9 Stable, asymptomatic. 8. Parkinson's disease without dyskinesia, with fluctuating manifestations - ICD9: 332.0, ICD10: G20.A2 Stopped ropinerole No significant sx. 9. Hyperbilirubinemia - ICD9: 782.4, ICD10: E80.6 Mild, stable 10. Gastroesophageal reflux disease, unspecified whether esophagitis present - ICD9: 530.81, ICD10: K21.9 Controlled with omeprazole: continue 11. Benign prostatic hyperplasia with nocturia - ICD9: 600.01, 788.43, ICD10: N40.1, R35.1 stable 12. Anxiety state - ICD9: 300.00, ICD10: F41.1 Controlled with medication Periods of loneliness, manages with daughter helping Some of this note may have been copied and pasted for the purpose of history context and comparison and has been adjusted for changes in prior data. Radha Durbin PA-C documented in this encounter [facility] 06-18-2023 Miscellaneous Notes Appt scheduled 06/28/23 Patient has been identified by name and date of : Yes Requested Prescriptions Pending Prescriptions Disp Refills traZODone (DESYREL) 50 mg tablet 90 tablet 1 Sig: Take 1 tablet by mouth daily at bedtime. RX INSTRUCTIONS: Patient aware RX will be sent to pharmacy. No need to notify patient. Sydney Kathleen documented in this encounter [facility] 05-25-2023 Note HNO ID: [id number] Author: Jair Marvin MD Service: ? 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 His daughter saw it today. Pruritis/Pain: painful the first few steps in the morning but improves with use Change: maybe less red and swollen Drainage/blister/pustule/ulcerati on: abrasion, has never bled or drained, no fevers/chills/body aches Treatment: bandar bo PAST MEDICAL HISTORY Diagnosis Date Acute gastritis Anxiety state 01/05/2009 BPH (benign prostatic hyperplasia) 03/17/2013 Diverticulosis of colon (without mention of hemorrhage) Diverticulosis Essential hypertension, benign 01/08/2006 GERD (gastroesophageal reflux disease) 01/10/2011 Hemangioma of other sites liver Hyperbilirubinemia 05/10/2016 Hyperlipidemia LDL goal <100 03/28/2016 Parkinson's disease 07/11/2017 MEDICATIONS: omeprazole (PRILOSEC) 40 mg capsule Take 1 capsule by mouth once daily. HYDROcodone-acetaminophen (NORCO) 5-325 mg per tablet Take 1 tablet by mouth every 8 hours as needed for pain. citalopram (CELEXA) 20 mg tablet Take 1 tablet by mouth once daily. busPIRone (BUSPAR) 5 mg tablet Take 1 tablet by mouth three times daily. traZODone (DESYREL) 50 mg tablet Take 1 tablet by mouth daily at bedtime. metoprolol succinate ER (TOPROL XL) 25 mg 24 hr tablet Take 1 tablet by mouth once daily. clopidogrel (PLAVIX) 75 mg tablet Take 1 tablet by mouth once daily. tamsulosin (FLOMAX) 0.4 mg Take 2 capsules by mouth once daily. atorvastatin (LIPITOR) 10 mg tablet Take 1 tablet by mouth once daily. hydroCHLOROthiazide (HYDRODIURIL, ESIDRIX) 25 mg tablet Take 1 tablet by mouth once daily. finasteride (PROSCAR) 5 mg tablet Take 1 tablet by mouth once daily. amLODIPine (NORVASC) 10 mg tablet Take 1 tablet by mouth once daily. rOPINIRole (REQUIP) 4 mg tablet Take 1 tablet by mouth three times daily. nitroglycerin sublingual (NITROQUICK) 0.4 mg SL tablet Dissolve 1 tablet under the tongue every 5 minutes as needed for Chest Pain. MULTIVITAMIN (MULTIPLE VITAMINS ORAL) Take by mouth once daily. NIACIN 500 MG TAB Take one(1) tablet two(2) times daily. ASPIRIN 81 MG TAB Take one(1) tablet daily. COMPLEX C SR 500 MG-25 MG-25 MG TAB 2 tabs daily ALLERGIES: ALLERGIES Allergen Reactions Lisinopril Cough Sulfa (Sulfonamide * Hives VITALS: BP 132/69 Pulse 70 Temp 36.7 ?C (98.1 ?F) Resp 18 Wt 71.7 kg (158 lb) SpO2 93% BMI 22.67 kg/m? PE: Pleasant, in no acute distress. SKIN: right lower leg. 3cm pink abrasion lateral upper portion with shallow dry eschar through the center. Mid luevano lateral to the tibia has 5cm of red skin with slight edema and central dry flat eschar. No warmth or fluctuance. ASSESSMENT/PLAN: 1. Abrasion of anterior right lower leg, initial encounter - ICD9: 916.0, ICD10: S80.811A Red area on the luevano marked with pen. Continue monitoring and expectant management. Follow up with signs of infection such as increasing redness, pain, swelling, purulent drainage, or fever/malaise. He can start antibiotic with any of these signs. 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 His daughter saw it today. Pruritis/Pain: painful the first few steps in the morning but improves with use Change: maybe less red and swollen Drainage/blister/pustule/ulcerati on: abrasion, has never bled or drained, no fevers/chills/body aches Treatment: bandar bo PAST MEDICAL HISTORY Diagnosis Date Acute gastritis Anxiety state 01/05/2009 BPH (benign prostatic hyperplasia) 03/17/2013 Diverticulosis of colon (without mention of hemorrhage) Diverticulosis Essential hypertension, benign 01/08/2006 GERD (gastroesophageal reflux disease) 01/10/2011 Hemangioma of other sites liver Hyperbilirubinemia 05/10/2016 Hyperlipidemia LDL goal <100 03/28/2016 Parkinson's disease 07/11/2017 MEDICATIONS: omeprazole (PRILOSEC) 40 mg capsule Take 1 capsule by mouth once daily. HYDROcodone-acetaminophen (NORCO) 5-325 mg per tablet Take 1 tablet by mouth every 8 hours as needed for pain. citalopram (CELEXA) 20 mg tablet Take 1 tablet by mouth once daily. busPIRone (BUSPAR) 5 mg tablet Take 1 tablet by mouth three times daily. traZODone (DESYREL) 50 mg tablet Take 1 tablet by mouth daily at bedtime. metoprolol succinate ER (TOPROL XL) 25 mg 24 hr tablet Take 1 tablet by mouth once daily. clopidogrel (PLAVIX) 75 mg tablet Take 1 tablet by mouth once daily. tamsulosin (FLOMAX) 0.4 mg Take 2 capsules by mouth once daily. atorvastatin (LIPITOR) 10 mg tablet Take 1 tablet by mouth once daily. hydroCHLOROthiazide (HYDRODIURIL, ESIDRIX) 25 mg tablet Take 1 tablet by mouth once daily. finasteride (PROSCAR) 5 mg tablet Take 1 tablet by mouth once daily. amLODIPine (NORVASC) 10 mg tablet Take 1 tablet by mouth once daily. rOPINIRole (REQUIP) 4 mg tablet Take 1 tablet by mouth three times daily. nitroglycerin sublingual (NITROQUICK) 0.4 mg SL tablet Dissolve 1 tablet under the tongue every 5 minutes as needed for Chest Pain. MULTIVITAMIN (MULTIPLE VITAMINS ORAL) Take by mouth once daily. NIACIN 500 MG TAB Take one(1) tablet two(2) times daily. ASPIRIN 81 MG TAB Take one(1) tablet daily. COMPLEX C SR 500 MG-25 MG-25 MG TAB 2 tabs daily ALLERGIES: ALLERGIES Allergen Reactions Lisinopril Cough Sulfa (Sulfonamide * Hives VITALS: BP 132/69 Pulse 70 Temp 36.7 C (98.1 F) Resp 18 Wt 71.7 kg (158 lb) SpO2 93% BMI 22.67 kg/m PE: Pleasant, in no acute distress. SKIN: right lower leg. 3cm pink abrasion lateral upper portion with shallow dry eschar through the center. Mid luevano lateral to the tibia has 5cm of red skin with slight edema and central dry flat eschar. No warmth or fluctuance. ASSESSMENT/PLAN: 1. Abrasion of anterior right lower leg, initial encounter - ICD9: 916.0, ICD10: S80.811A Red area on the luevano marked with pen. Continue monitoring and expectant management. Follow up with signs of infection such as increasing redness, pain, swelling, purulent drainage, or fever/malaise. He can start antibiotic with any of these signs. Jair Marvin MD documented in this encounter [facility] 05-21-2023 Miscellaneous Notes No answer no voicemail Letter sent to patient Shirley Winters Ma No answer, unable to leave message. 2nd attempt. No answer, no voice mail Attempted to call patient. No answer, no voicemail. Shirley Winters Ma ----- Message from Radha Durbin PA-C sent at 05/13/2023 7:57 PM EDT ----- Please let him know CT abd/pel showed nothing worrisome. He does have narrowing of abdominal arteries but nothing > 60% so not imparining flow. Chaz Vega PA-C documented in this encounter [facility] 05-12-2023 Miscellaneous Notes Patient's Daughter Pili calls and notified of results and provider recommendations. Pili states that she is going to check with patient as well as with her brother to see if they want urology to be consulted. Tracy Yo RN Attempted to call, no answer ----- Message from Radha Durbin PA-C sent at 05/11/2023 4:54 PM EDT ----- Please advise vascular findings show mild to moderate narrowing without significant blockage abdominal aorta, renal artery, leg arteries No masses. He has enlarged prostate with mildly enlarged lymph nodes in area: recommending check PSA. Just checked in November. PSA (ng/mL) Date Value 11/29/2022 3.78 12/24/2021 7.61 04/16/2021 8.10 We might have urology review if they are okay with consult. Please let me know. Thanks, Chaz Durbin PA-C documented in this encounter [facility] 05-11-2023 Miscellaneous Notes See other TE Thanks, Chaz Durbin PA-C Pt's daughter Pili asking Chaz Durbin to advise on pt's recent CT scan results, when able. Thank you. documented in this encounter [facility] 05-11-2023 Note HNO ID: [id number] Author: Krissy Michel RT(R) Service: ? Author Type: Mortgage Loan Counselor Type: Progress Notes Filed: 05/11/2023 4:07 PM Note Text: Radiology Service Progress Note DATE OF SERVICE: May 11, 2023 TIME: 4:07 PM PATIENT IDENTITY VERIFICATION COMPLETED USING TWO (2) STANDARD IDENTIFIERS: Name and Date of confirmed by patient verbally. FALL SCREENING: Has the patient had 2 falls in the last year or 1 fall with injury or currently using an Ambulatory Assistive Device (Walker, Cane, Wheelchair, Crutches, etc.)? No PATIENT GENDER DATA: Male PATIENT RELEVANT IMPLANT DATA REVIEWED: Yes ALLERGIES: Reviewed and unchanged CONTRAST ALLERGY: NO. EXAM: CT -CONTRAST INDUCED NEPHROPATHY RISK FACTORS: Patient age > 60 years CREATININE: Creatinine Date Value Ref Range Status 04/30/2023 1.03 0.73 - 1.22 mg/dL Final 11/29/2022 0.94 0.73 - 1.22 mg/dL Final 12/24/2021 0.90 0.73 - 1.22 mg/dL Final Estimated Glomerular Filtration Rate Date Value Ref Range Status 04/30/2023 71 >=60 mL/min/1.73m? Final Comment: Estimated Glomerular Filtration Rate (eGFR) is calculated using the 2020 CKD-EPI creatinine equation. This equation utilizes serum creatinine, sex, and age as parameters. The creatinine assay has traceable calibration to isotope dilution-mass spectrometry. Refer to KDIGO guidelines for clinical interpretation. In patients with unstable renal function, e.g. those with acute kidney injury, the eGFR may not accurately reflect actual GFR. eGFR- Date Value Ref Range Status 04/16/2021 >60 Final P.O.C.T. RESULTS: POC done: Yes, See Lab Tab May 11, 2023 TREATMENT: N/A PERIPHERAL IV DATA: Ambulatory: A peripheral IV was started in the Left antecubital site with a Angio cath: 18 gauge. RADIOLOGY DEPARTMENT: CT; Exam(s) Completed: CTA Abdomen Pelvis SIGNATURE: RT Emile(R) PATIENT NAME: Ryan Soriano DATE: May 11, 2023 TIME: 4:07 PM [facility] 05-11-2023 History of Present illness Narrative Radiology Service Progress Note DATE OF SERVICE: May 11, 2023 TIME: 4:07 PM PATIENT IDENTITY VERIFICATION COMPLETED USING TWO (2) STANDARD IDENTIFIERS: Name and Date of confirmed by patient verbally. FALL SCREENING: Has the patient had 2 falls in the last year or 1 fall with injury or currently using an Ambulatory Assistive Device (Walker, Cane, Wheelchair, Crutches, etc.)? No PATIENT GENDER DATA: Male PATIENT RELEVANT IMPLANT DATA REVIEWED: Yes ALLERGIES: Reviewed and unchanged CONTRAST ALLERGY: NO. EXAM: CT -CONTRAST INDUCED NEPHROPATHY RISK FACTORS: Patient age > 60 years CREATININE: Creatinine Date Value Ref Range Status 04/30/2023 1.03 0.73 - 1.22 mg/dL Final 11/29/2022 0.94 0.73 - 1.22 mg/dL Final 12/24/2021 0.90 0.73 - 1.22 mg/dL Final Estimated Glomerular Filtration Rate Date Value Ref Range Status 04/30/2023 71 >=60 mL/min/1.73m Final Comment: Estimated Glomerular Filtration Rate (eGFR) is calculated using the 2020 CKD-EPI creatinine equation. This equation utilizes serum creatinine, sex, and age as parameters. The creatinine assay has traceable calibration to isotope dilution-mass spectrometry. Refer to KDIGO guidelines for clinical interpretation. In patients with unstable renal function, e.g. those with acute kidney injury, the eGFR may not accurately reflect actual GFR. eGFR- Date Value Ref Range Status 04/16/2021 >60 Final P.O.C.T. RESULTS: POC done: Yes, See Lab Tab May 11, 2023 TREATMENT: N/A PERIPHERAL IV DATA: Ambulatory: A peripheral IV was started in the Left antecubital site with a Angio cath: 18 gauge. RADIOLOGY DEPARTMENT: CT; Exam(s) Completed: CTA Abdomen Pelvis SIGNATURE: RT Emile(R) PATIENT NAME: Ryan Soriano DATE: May 11, 2023 TIME: 4:07 PM documented in this encounter [facility] 04-30-2023 Note HNO ID: [id number] Author: Radha Durbin PA-C Service: ? Author Type: Physician Fitness Trainer Type: Progress Notes Filed: 04/30/2023 7:05 PM Note Text: 87 year old male with c/o f/u on ETOH use, balance problems with falls, bowel issues. Stopped Khari Beam. Usually happens in the morning. Raggy stools. Very seldom solid anymore. No abdominal pain Sometimes nauseated, no vomiting. No heartburn or reflux. From last note: Bowels vary from diarrhea to constipated Stool is soft, no runny or liquid. Taking Imodium AD Drinks some Khari Beam whiskey with water 2-3 sips a day. Goes through a bottle each week. HISTORIES FAMILY HISTORY Problem Relation Age of Onset Hypertension Mother Stroke Mother GI Father Stroke Father PAST MEDICAL HISTORY Diagnosis Date Acute gastritis Anxiety state 01/05/2009 BPH (benign prostatic hyperplasia) 03/17/2013 Diverticulosis of colon (without mention of hemorrhage) Diverticulosis Essential hypertension, benign 01/08/2006 GERD (gastroesophageal reflux disease) 01/10/2011 Hemangioma of other sites liver Hyperbilirubinemia 05/10/2016 Hyperlipidemia LDL goal <100 03/28/2016 Parkinson's disease (HCC) 07/11/2017 PAST SURGICAL HISTORY Procedure Laterality Date COLONOSCOPY FLX DX W/COLLJ SPEC WHEN PFRMD 05/27/2013 Colonoscopy COLONOSCOPY FLX DX W/COLLJ SPEC WHEN PFRMD 01/19/2020 ESOPHAGOGASTRODUODENOSCOPY TRANSORAL DIAGNOSTIC EGD ESOPHAGOGASTRODUODENOSCOPY TRANSORAL DIAGNOSTIC 05/27/2013 EGD ESOPHAGOGASTRODUODENOSCOPY TRANSORAL DIAGNOSTIC 01/19/2020 PAST SURGICAL HISTORY OF Right 05/22/2017 Thu R Inguinal Herniorrhaphy with excison cord lipoma performed by Dr. Robe Mackenzie at [facility] REVSC OPN/PRQ FEM/POP W/STNT/ANGIOP SM VSL 03-18-14 RPR 1ST INGUN HRNA AGE 7 YRS/> REDUCIBLE Hernia repair, inguinal Social History Tobacco Use Smoking status: Former Smokeless tobacco: Never Tobacco comments: quit 1999 Vaping Use Vaping Use: Never used Substance Use Topics Alcohol use: Yes Comment: seldom Drug use: No ACTIVE PROBLEM LIST Essential Hypertension, Benign Anxiety State Gerd (Gastroesophageal Reflux Disease) Bph (Benign Prostatic Hyperplasia) Pad (Peripheral Artery Disease) (Hcc) Hyperlipidemia Ldl Goal <100 Hyperbilirubinemia Parkinson's Disease Angina Pectoris (Hcc) Restless Legs Syndrome Iron Deficiency Anemia Due to Chronic Blood Loss Coronary Artery Disease Involving [place] Coronary Artery of [place] Heart S/P Primary Angioplasty With Coronary Stent Fall From Standing Current Outpatient Medications Medication Sig Dispense Refill HYDROcodone-acetaminophen (NORCO) 5-325 mg per tablet Take 1 tablet by mouth every 8 hours as needed for pain. citalopram (CELEXA) 20 mg tablet Take 1 tablet by mouth once daily. 90 tablet 3 busPIRone (BUSPAR) 5 mg tablet Take 1 tablet by mouth three times daily. 90 tablet 1 omeprazole (PRILOSEC) 20 mg capsule Take 2 capsules by mouth once daily. 180 capsule 3 traZODone (DESYREL) 50 mg tablet Take 1 tablet by mouth daily at bedtime. 90 tablet 1 metoprolol succinate ER (TOPROL XL) 25 mg 24 hr tablet Take 1 tablet by mouth once daily. 90 tablet 3 clopidogrel (PLAVIX) 75 mg tablet Take 1 tablet by mouth once daily. 90 tablet 3 tamsulosin (FLOMAX) 0.4 mg Take 2 capsules by mouth once daily. 180 capsule 3 atorvastatin (LIPITOR) 10 mg tablet Take 1 tablet by mouth once daily. 90 tablet 3 hydroCHLOROthiazide (HYDRODIURIL, ESIDRIX) 25 mg tablet Take 1 tablet by mouth once daily. 90 tablet 3 finasteride (PROSCAR) 5 mg tablet Take 1 tablet by mouth once daily. 90 tablet 3 amLODIPine (NORVASC) 10 mg tablet Take 1 tablet by mouth once daily. 90 tablet 3 rOPINIRole (REQUIP) 4 mg tablet Take 1 tablet by mouth three times daily. 90 tablet 3 nitroglycerin sublingual (NITROQUICK) 0.4 mg SL tablet Dissolve 1 tablet under the tongue every 5 minutes as needed for Chest Pain. 1 Bottle of 25 0 MULTIVITAMIN (MULTIPLE VITAMINS ORAL) Take by mouth once daily. NIACIN 500 MG TAB Take one(1) tablet two(2) times daily. 0 ASPIRIN 81 MG TAB Take one(1) tablet daily. 0 COMPLEX C SR 500 MG-25 MG-25 MG TAB 2 tabs daily 0 No current facility-administered medications for this visit. Influenza Vaccine(1) due on 03/30/2023 EXAM: BP 114/62 Pulse 65 Wt 70.8 kg (156 lb) SpO2 98% BMI 22.38 kg/m? Pleasant older in no acute distress. Alert and oriented all spheres. Normal affect and cognition. Speech normal. No deficits to learning or comprehension. Skin warm, dry, pink to lips and nailbeds. Normal turgor. Respirations regular and unlabored. HEENT: NCAT. No scleral icterus or conjunctival injection. TM's clear. Nose and oropharynx free from injection or lesion. Oral membranes moist and pink. No cervical lymph nodes. Thyroid non-tender, no masses, or enlargement. Carotids pulses 2+/4+ without bruits. No JVD with HOB at 30 degrees. Abdomen: active tiny (more content not included)... [facility] 03-19-2023 Note HNO ID: [id number] Author: Durbin, M Julien, PA-C Service: ? Author Type: Physician Fitness Trainer Type: Progress Notes Filed: 03/19/2023 1:09 PM Note Text: 87 year old male with c/o 4 week follow up on right low back pain with right sciatica. Has not yet had PT session. Doing really well . Some problems after sitting for a long time and getting up. Continues daily exercise. Starting to walk before breakfast. Run down from hip issues which took 4 weeks to improve, wasn't exercising. Bowels vary from diarrhea to constipated Stool is soft, no runny or liquid. Taking Imodium AD Drinks some Khari Beam whiskey with water 2-3 sips a day. Goes throuoh a bottle each week. No chest pain, SOB, dyspnea, orthopnea, racing or irregular heartbeats, palpitations, syncopal sx, leg swelling, nausea, diaphoresis or heartburn. No new labs. HISTORIES FAMILY HISTORY Problem Relation Age of Onset Hypertension Mother Stroke Mother GI Father Stroke Father PAST MEDICAL HISTORY Diagnosis Date Acute gastritis Anxiety state 01/05/2009 BPH (benign prostatic hyperplasia) 03/17/2013 Diverticulosis of colon (without mention of hemorrhage) Diverticulosis Essential hypertension, benign 01/08/2006 GERD (gastroesophageal reflux disease) 01/10/2011 Hemangioma of other sites liver Hyperbilirubinemia 05/10/2016 Hyperlipidemia LDL goal <100 03/28/2016 Parkinson's disease (HCC) 07/11/2017 PAST SURGICAL HISTORY Procedure Laterality Date COLONOSCOPY FLX DX W/COLLJ SPEC WHEN PFRMD 05/27/2013 Colonoscopy COLONOSCOPY FLX DX W/COLLJ SPEC WHEN PFRMD 01/19/2020 ESOPHAGOGASTRODUODENOSCOPY TRANSORAL DIAGNOSTIC EGD ESOPHAGOGASTRODUODENOSCOPY TRANSORAL DIAGNOSTIC 05/27/2013 EGD ESOPHAGOGASTRODUODENOSCOPY TRANSORAL DIAGNOSTIC 01/19/2020 PAST SURGICAL HISTORY OF Right 05/22/2017 Thu R Inguinal Herniorrhaphy with excison cord lipoma performed by Dr. Robe Mackenzie at [facility] REVSC OPN/PRQ FEM/POP W/STNT/ANGIOP SM VSL 03-18-14 RPR 1ST INGUN HRNA AGE 7 YRS/> REDUCIBLE Hernia repair, inguinal Social History Tobacco Use Smoking status: Former Smokeless tobacco: Never Tobacco comments: quit 1999 Vaping Use Vaping Use: Never used Substance Use Topics Alcohol use: Yes Comment: seldom Drug use: No ACTIVE PROBLEM LIST Essential Hypertension, Benign Anxiety State Gerd (Gastroesophageal Reflux Disease) Bph (Benign Prostatic Hyperplasia) Pad (Peripheral Artery Disease) (Hcc) Hyperlipidemia Ldl Goal <100 Hyperbilirubinemia Parkinson's Disease (Hcc) Angina Pectoris (Hcc) Restless Legs Syndrome Iron Deficiency Anemia Due to Chronic Blood Loss Coronary Artery Disease Involving [place] Coronary Artery of [place] Heart S/P Primary Angioplasty With Coronary Stent Fall From Standing Current Outpatient Medications Medication Sig Dispense Refill HYDROcodone-acetaminophen (NORCO) 5-325 mg per tablet Take 1 tablet by mouth every 8 hours as needed for pain. citalopram (CELEXA) 20 mg tablet Take 1 tablet by mouth once daily. 90 tablet 3 busPIRone (BUSPAR) 5 mg tablet Take 1 tablet by mouth three times daily. 90 tablet 1 omeprazole (PRILOSEC) 20 mg capsule Take 2 capsules by mouth once daily. 180 capsule 3 traZODone (DESYREL) 50 mg tablet Take 1 tablet by mouth daily at bedtime. 90 tablet 1 metoprolol succinate ER (TOPROL XL) 25 mg 24 hr tablet Take 1 tablet by mouth once daily. 90 tablet 3 clopidogrel (PLAVIX) 75 mg tablet Take 1 tablet by mouth once daily. 90 tablet 3 tamsulosin (FLOMAX) 0.4 mg Take 2 capsules by mouth once daily. 180 capsule 3 atorvastatin (LIPITOR) 10 mg tablet Take 1 tablet by mouth once daily. 90 tablet 3 hydroCHLOROthiazide (HYDRODIURIL, ESIDRIX) 25 mg tablet Take 1 tablet by mouth once daily. 90 tablet 3 finasteride (PROSCAR) 5 mg tablet Take 1 tablet by mouth once daily. 90 tablet 3 amLODIPine (NORVASC) 10 mg tablet Take 1 tablet by mouth once daily. 90 tablet 3 rOPINIRole (REQUIP) 4 mg tablet Take 1 tablet by mouth three times daily. 90 tablet 3 nitroglycerin sublingual (NITROQUICK) 0.4 mg SL tablet Dissolve 1 tablet under the tongue every 5 minutes as needed for Chest Pain. 1 Bottle of 25 0 MULTIVITAMIN (MULTIPLE VITAMINS ORAL) Take by mouth once daily. NIACIN 500 MG TAB Take one(1) tablet two(2) times daily. 0 ASPIRIN 81 MG TAB Take one(1) tablet daily. 0 COMPLEX C SR 500 MG-25 MG-25 MG TAB 2 tabs daily 0 No current facility-administered medications for this visit. There are no preventive care reminders to display for this patient. EXAM: BP 140/78 Pulse 75 Resp 16 Wt 70.3 kg (155 lb) SpO2 94% BMI 22.24 kg/m? Pleasant well appearing adult man in no acute distress. Alert and oriented all spheres. Normal affect and cognition. Speech normal. No deficits to learning or comprehension. Skin warm, dry, pink to lips and nailbeds. Normal turgor. Has actinic damage on forehead, neck , upper chest without ulceration (more content not included)... [facility] 02-19-2023 Note HNO ID: [id number] Author: Radha Durbin PA-C Service: ? Author Type: Physician Fitness Trainer Type: Progress Notes Filed: 02/19/2023 2:41 PM Note Text: 87 year old male with c/o persistent pain in right buttock radiating down back or right thigh, no numbness, tingling, loss of sensation. See prior notes and Express care visit. Steroid no impact. Doing piriformis and lumbar stretches which do help temporarily. Taking Tylenol ES Ste[place] pain, not throbbing. [facility]: 02/18/23 [facility] ED visit complaining of pain right buttock radiating to posterior aspect of right thigh for 3 weeks. Has had some benefit from stretching and osteopathic manipulation. Ear exam: Vital signs 98.1 [id number]/[id number]. Documented exam was essentially normal. Discharged in stable condition with prescription for [place]. Patient has used tablet once with some improvement. HISTORIES FAMILY HISTORY Problem Relation Age of Onset Hypertension Mother Stroke Mother GI Father Stroke Father PAST MEDICAL HISTORY Diagnosis Date Acute gastritis Anxiety state 01/05/2009 BPH (benign prostatic hyperplasia) 03/17/2013 Diverticulosis of colon (without mention of hemorrhage) Diverticulosis Essential hypertension, benign 01/08/2006 GERD (gastroesophageal reflux disease) 01/10/2011 Hemangioma of other sites liver Hyperbilirubinemia 05/10/2016 Hyperlipidemia LDL goal <100 03/28/2016 Parkinson's disease (HCC) 07/11/2017 PAST SURGICAL HISTORY Procedure Laterality Date COLONOSCOPY FLX DX W/COLLJ SPEC WHEN PFRMD 05/27/2013 Colonoscopy COLONOSCOPY FLX DX W/COLLJ SPEC WHEN PFRMD 01/19/2020 ESOPHAGOGASTRODUODENOSCOPY TRANSORAL DIAGNOSTIC EGD ESOPHAGOGASTRODUODENOSCOPY TRANSORAL DIAGNOSTIC 05/27/2013 EGD ESOPHAGOGASTRODUODENOSCOPY TRANSORAL DIAGNOSTIC 01/19/2020 PAST SURGICAL HISTORY OF Right 05/22/2017 Thu R Inguinal Herniorrhaphy with excison cord lipoma performed by Dr. Robe Mackenzie at [facility] REVSC OPN/PRQ FEM/POP W/STNT/ANGIOP SM VSL 03-18-14 RPR 1ST INGUN HRNA AGE 7 YRS/> REDUCIBLE Hernia repair, inguinal Social History Tobacco Use Smoking status: Former Smokeless tobacco: Never Tobacco comments: quit 1999 Vaping Use Vaping Use: Never used Substance Use Topics Alcohol use: Yes Comment: seldom Drug use: No ACTIVE PROBLEM LIST Essential Hypertension, Benign Anxiety State Gerd (Gastroesophageal Reflux Disease) Bph (Benign Prostatic Hyperplasia) Pad (Peripheral Artery Disease) (Hcc) Hyperlipidemia Ldl Goal <100 Hyperbilirubinemia Parkinson's Disease (Hcc) Angina Pectoris (Hcc) Restless Legs Syndrome Iron Deficiency Anemia Due to Chronic Blood Loss Coronary Artery Disease Involving [place] Coronary Artery of [place] Heart S/P Primary Angioplasty With Coronary Stent Fall From Standing Current Outpatient Medications Medication Sig Dispense Refill HYDROcodone-acetaminophen (NORCO) 5-325 mg per tablet Take 1 tablet by mouth every 8 hours as needed for pain. citalopram (CELEXA) 20 mg tablet Take 1 tablet by mouth once daily. 90 tablet 3 busPIRone (BUSPAR) 5 mg tablet Take 1 tablet by mouth three times daily. 90 tablet 1 omeprazole (PRILOSEC) 20 mg capsule Take 2 capsules by mouth once daily. 180 capsule 3 traZODone (DESYREL) 50 mg tablet Take 1 tablet by mouth daily at bedtime. 90 tablet 1 metoprolol succinate ER (TOPROL XL) 25 mg 24 hr tablet Take 1 tablet by mouth once daily. 90 tablet 3 clopidogrel (PLAVIX) 75 mg tablet Take 1 tablet by mouth once daily. 90 tablet 3 tamsulosin (FLOMAX) 0.4 mg Take 2 capsules by mouth once daily. 180 capsule 3 atorvastatin (LIPITOR) 10 mg tablet Take 1 tablet by mouth once daily. 90 tablet 3 hydroCHLOROthiazide (HYDRODIURIL, ESIDRIX) 25 mg tablet Take 1 tablet by mouth once daily. 90 tablet 3 finasteride (PROSCAR) 5 mg tablet Take 1 tablet by mouth once daily. 90 tablet 3 amLODIPine (NORVASC) 10 mg tablet Take 1 tablet by mouth once daily. 90 tablet 3 rOPINIRole (REQUIP) 4 mg tablet Take 1 tablet by mouth three times daily. 90 tablet 3 nitroglycerin sublingual (NITROQUICK) 0.4 mg SL tablet Dissolve 1 tablet under the tongue every 5 minutes as needed for Chest Pain. 1 Bottle of 25 0 MULTIVITAMIN (MULTIPLE VITAMINS ORAL) Take by mouth once daily. NIACIN 500 MG TAB Take one(1) tablet two(2) times daily. 0 ASPIRIN 81 MG TAB Take one(1) tablet daily. 0 COMPLEX C SR 500 MG-25 MG-25 MG TAB 2 tabs daily 0 No current facility-administered medications for this visit. There are no preventive care reminders to display for this patient. EXAM: BP 122/60 Pulse 75 Wt 71.2 kg (157 lb) SpO2 94% BMI 22.53 kg/m? Pleasant well-appearing older male in no acute distress. Alert and oriented all spheres. Normal affect and cognition. Speech normal. No deficits to learning or comprehension. Skin warm, dry, pink to lips and nailbeds. Normal turgor. Respirations regular and unlabored. Chest is (more content not included)... [facility] 02-08-2023 Note HNO ID: [id number] Author: Radha Durbin PA-C Service: ? Author Type: Physician Fitness Trainer Type: Progress Notes Filed: 02/08/2023 6:41 PM Note Text: 87 year old male with c/o lower back pain radiating into right leg. Started getting out of bed, no injury. Using ice, heat. Using some lineament from neighbor. 01/31/2023 LS spine XR: No acute fracture. There is good alignment of the vertebrae. There is degenerative disc disease at multiple levels of the lumbar spine with endplate sclerosis, intervertebral disc space narrowing and osteophyte formation. Sacroiliac joints appear normal. Vascular calcifications are noted. HISTORIES FAMILY HISTORY Problem Relation Age of Onset Hypertension Mother Stroke Mother GI Father Stroke Father PAST MEDICAL HISTORY Diagnosis Date Acute gastritis Anxiety state 01/05/2009 BPH (benign prostatic hyperplasia) 03/17/2013 Diverticulosis of colon (without mention of hemorrhage) Diverticulosis Essential hypertension, benign 01/08/2006 GERD (gastroesophageal reflux disease) 01/10/2011 Hemangioma of other sites liver Hyperbilirubinemia 05/10/2016 Hyperlipidemia LDL goal <100 03/28/2016 Parkinson's disease (HCC) 07/11/2017 PAST SURGICAL HISTORY Procedure Laterality Date COLONOSCOPY FLX DX W/COLLJ SPEC WHEN PFRMD 05/27/2013 Colonoscopy COLONOSCOPY FLX DX W/COLLJ SPEC WHEN PFRMD 01/19/2020 ESOPHAGOGASTRODUODENOSCOPY TRANSORAL DIAGNOSTIC EGD ESOPHAGOGASTRODUODENOSCOPY TRANSORAL DIAGNOSTIC 05/27/2013 EGD ESOPHAGOGASTRODUODENOSCOPY TRANSORAL DIAGNOSTIC 01/19/2020 PAST SURGICAL HISTORY OF Right 05/22/2017 Thu R Inguinal Herniorrhaphy with excison cord lipoma performed by Dr. Robe Mackenzie at [facility] REVSC OPN/PRQ FEM/POP W/STNT/ANGIOP SM VSL 03-18-14 RPR 1ST INGUN HRNA AGE 7 YRS/> REDUCIBLE Hernia repair, inguinal Social History Tobacco Use Smoking status: Former Smokeless tobacco: Never Tobacco comments: quit 1999 Vaping Use Vaping Use: Never used Substance Use Topics Alcohol use: Yes Comment: seldom Drug use: No ACTIVE PROBLEM LIST Essential Hypertension, Benign Anxiety State Gerd (Gastroesophageal Reflux Disease) Bph (Benign Prostatic Hyperplasia) Pad (Peripheral Artery Disease) (Hcc) Hyperlipidemia Ldl Goal <100 Hyperbilirubinemia Parkinson's Disease (Hcc) Angina Pectoris (Hcc) Restless Legs Syndrome Iron Deficiency Anemia Due to Chronic Blood Loss Coronary Artery Disease Involving [place] Coronary Artery of [place] Heart S/P Primary Angioplasty With Coronary Stent Fall From Standing Current Outpatient Medications Medication Sig Dispense Refill omeprazole (PRILOSEC) 20 mg capsule Take 2 capsules by mouth once daily. 180 capsule 3 traZODone (DESYREL) 50 mg tablet Take 1 tablet by mouth daily at bedtime. 90 tablet 1 metoprolol succinate ER (TOPROL XL) 25 mg 24 hr tablet Take 1 tablet by mouth once daily. 90 tablet 3 clopidogrel (PLAVIX) 75 mg tablet Take 1 tablet by mouth once daily. 90 tablet 3 tamsulosin (FLOMAX) 0.4 mg Take 2 capsules by mouth once daily. 180 capsule 3 atorvastatin (LIPITOR) 10 mg tablet Take 1 tablet by mouth once daily. 90 tablet 3 citalopram (CELEXA) 20 mg tablet Take 1 tablet by mouth once daily. 90 tablet 3 hydroCHLOROthiazide (HYDRODIURIL, ESIDRIX) 25 mg tablet Take 1 tablet by mouth once daily. 90 tablet 3 finasteride (PROSCAR) 5 mg tablet Take 1 tablet by mouth once daily. 90 tablet 3 amLODIPine (NORVASC) 10 mg tablet Take 1 tablet by mouth once daily. 90 tablet 3 rOPINIRole (REQUIP) 4 mg tablet Take 1 tablet by mouth three times daily. 90 tablet 3 nitroglycerin sublingual (NITROQUICK) 0.4 mg SL tablet Dissolve 1 tablet under the tongue every 5 minutes as needed for Chest Pain. 1 Bottle of 25 0 MULTIVITAMIN (MULTIPLE VITAMINS ORAL) Take by mouth once daily. NIACIN 500 MG TAB Take one(1) tablet two(2) times daily. 0 ASPIRIN 81 MG TAB Take one(1) tablet daily. 0 COMPLEX C SR 500 MG-25 MG-25 MG TAB 2 tabs daily 0 No current facility-administered medications for this visit. There are no preventive care reminders to display for this patient. EXAM: BP 148/80 Pulse (!) 56 Resp 16 Wt 71.7 kg (158 lb) SpO2 96% BMI 22.67 kg/m? Pleasant very well appearing adult male in no acute distress. Alert and oriented all spheres. Normal affect and cognition. Speech normal. No deficits to learning or comprehension. Skin warm, dry, pink to lips and nailbeds. Normal turgor. Respirations regular and unlabored. Chest is normal shape. Lungs are clear to all pena with good air exchange through out. HRRR without murmur or gallop. No lifts, heaves, or rubs. cutting machine tender helper over right lumbar paravertebrals, right piriformis. Left innominate restriction on forward flexion. Asymmetric gait with prolonged left swing. Able to touch toes easily and also agile on table. Extrem: no clubbing or cyanosis. Edema: none. Extremities are warm and pink (more content not included)... [facility] 02-08-2023 Instructions Radha Durbin PA-C - 02/08/2023 10:02 AM EDT Ice/ moist heat, lineaments, OTC analgesics as needed. Stretching and posture reviewed. See handout on piriformis stretching. documented in this encounter [facility] 02-08-2023 History of Present illness Narrative 87 year old male with c/o lower back pain radiating into right leg. Started getting out of bed, no injury. Using ice, heat. Using some lineament from neighbor. 01/31/2023 LS spine XR: No acute fracture. There is good alignment of the vertebrae. There is degenerative disc disease at multiple levels of the lumbar spine with endplate sclerosis, intervertebral disc space narrowing and osteophyte formation. Sacroiliac joints appear normal. Vascular calcifications are noted. HISTORIES FAMILY HISTORY Problem Relation Age of Onset Hypertension Mother Stroke Mother GI Father Stroke Father PAST MEDICAL HISTORY Diagnosis Date Acute gastritis Anxiety state 01/05/2009 BPH (benign prostatic hyperplasia) 03/17/2013 Diverticulosis of colon (without mention of hemorrhage) Diverticulosis Essential hypertension, benign 01/08/2006 GERD (gastroesophageal reflux disease) 01/10/2011 Hemangioma of other sites liver Hyperbilirubinemia 05/10/2016 Hyperlipidemia LDL goal <100 03/28/2016 Parkinson's disease (HCC) 07/11/2017 PAST SURGICAL HISTORY Procedure Laterality Date COLONOSCOPY FLX DX W/COLLJ SPEC WHEN PFRMD 05/27/2013 Colonoscopy COLONOSCOPY FLX DX W/COLLJ SPEC WHEN PFRMD 01/19/2020 ESOPHAGOGASTRODUODENOSCOPY TRANSORAL DIAGNOSTIC EGD ESOPHAGOGASTRODUODENOSCOPY TRANSORAL DIAGNOSTIC 05/27/2013 EGD ESOPHAGOGASTRODUODENOSCOPY TRANSORAL DIAGNOSTIC 01/19/2020 PAST SURGICAL HISTORY OF Right 05/22/2017 Thu R Inguinal Herniorrhaphy with excison cord lipoma performed by Dr. Robe Mackenzie at [facility] REVSC OPN/PRQ FEM/POP W/STNT/ANGIOP SM VSL 03-18-14 RPR 1ST INGUN HRNA AGE 7 YRS/> REDUCIBLE Hernia repair, inguinal Social History Tobacco Use Smoking status: Former Smokeless tobacco: Never Tobacco comments: quit 1999 Vaping Use Vaping Use: Never used Substance Use Topics Alcohol use: Yes Comment: seldom Drug use: No ACTIVE PROBLEM LIST Essential Hypertension, Benign Anxiety State Gerd (Gastroesophageal Reflux Disease) Bph (Benign Prostatic Hyperplasia) Pad (Peripheral Artery Disease) (Hcc) Hyperlipidemia Ldl Goal <100 Hyperbilirubinemia Parkinson's Disease (Hcc) Angina Pectoris (Hcc) Restless Legs Syndrome Iron Deficiency Anemia Due to Chronic Blood Loss Coronary Artery Disease Involving [place] Coronary Artery of [place] Heart S/P Primary Angioplasty With Coronary Stent Fall From Standing Current Outpatient Medications Medication Sig Dispense Refill omeprazole (PRILOSEC) 20 mg capsule Take 2 capsules by mouth once daily. 180 capsule 3 traZODone (DESYREL) 50 mg tablet Take 1 tablet by mouth daily at bedtime. 90 tablet 1 metoprolol succinate ER (TOPROL XL) 25 mg 24 hr tablet Take 1 tablet by mouth once daily. 90 tablet 3 clopidogrel (PLAVIX) 75 mg tablet Take 1 tablet by mouth once daily. 90 tablet 3 tamsulosin (FLOMAX) 0.4 mg Take 2 capsules by mouth once daily. 180 capsule 3 atorvastatin (LIPITOR) 10 mg tablet Take 1 tablet by mouth once daily. 90 tablet 3 citalopram (CELEXA) 20 mg tablet Take 1 tablet by mouth once daily. 90 tablet 3 hydroCHLOROthiazide (HYDRODIURIL, ESIDRIX) 25 mg tablet Take 1 tablet by mouth once daily. 90 tablet 3 finasteride (PROSCAR) 5 mg tablet Take 1 tablet by mouth once daily. 90 tablet 3 amLODIPine (NORVASC) 10 mg tablet Take 1 tablet by mouth once daily. 90 tablet 3 rOPINIRole (REQUIP) 4 mg tablet Take 1 tablet by mouth three times daily. 90 tablet 3 nitroglycerin sublingual (NITROQUICK) 0.4 mg SL tablet Dissolve 1 tablet under the tongue every 5 minutes as needed for Chest Pain. 1 Bottle of 25 0 MULTIVITAMIN (MULTIPLE VITAMINS ORAL) Take by mouth once daily. NIACIN 500 MG TAB Take one(1) tablet two(2) times daily. 0 ASPIRIN 81 MG TAB Take one(1) tablet daily. 0 COMPLEX C SR 500 MG-25 MG-25 MG TAB 2 tabs daily 0 No current facility-administered medications for this visit. There are no preventive care reminders to display for this patient. EXAM: BP 148/80 Pulse (!) 56 Resp 16 Wt 71.7 kg (158 lb) SpO2 96% BMI 22.67 kg/m Pleasant very well appearing adult male in no acute distress. Alert and oriented all spheres. Normal affect and cognition. Speech normal. No deficits to learning or comprehension. Skin warm, dry, pink to lips and nailbeds. Normal turgor. Respirations regular and unlabored. Chest is normal shape. Lungs are clear to all pena with good air exchange through out. HRRR without murmur or gallop. No lifts, heaves, or rubs. cutting machine tender helper over right lumbar paravertebrals, right piriformis. Left innominate restriction on forward flexion. Asymmetric gait with prolonged left swing. Able to touch toes easily and also agile on table. Extrem: no clubbing or cyanosis. Edema: none. Extremities are warm and pink with prompt capillary refill. Straight leg raise to 90 degrees bilaterally without pain, no pain with internal/external rotation of hips. Explained OMT and obtained permission: Myofascial release to tender points bilateral paralumbar muscles including bilateral piriformis release. Muscle energy technique to lumbar spine, HVLA gently to the left SIJ. Patient had relief with pain, full range of motion on recheck and restored even gait swing. ASSESSMENT/PLAN: 1. Piriformis syndrome, left - ICD9: 355.0, ICD10: G57.02 (primary diagnosis) 2. Somatic dysfunction of left sacroiliac joint - ICD9: 739.4, ICD10: M99.04 Following over the next several days for recurrence or exacerbation of pain. Patient is to notify the office if this occurs. Ice/ moist heat, lineaments, OTC analgesics as needed. Stretching and posture reviewed. Radha Durbin PA-C Some of this note may have been copied and pasted for the purpose of history context and comparison. documented in this encounter [facility] 01-31-2023 Note HNO ID: [id number] Author: Kimberlee Salazar PA-C Service: ? Author Type: Physician Fitness Trainer Type: Progress Notes Filed: 01/31/2023 2:03 PM Note Text: This note was created using Curious Senseriter. Subjective Ryan Soriano is a 87 year old male. HPI Patient presents with right lower back pain rating into his right leg over the past 2 days. He denies any injury or trauma. Feels better if he stretches the leg or with sitting. It is worsening if he is standing for longer periods of time. No numbness or tingling. No falls recently. No rash. He had back problem several years ago but since he has been working that had improved. No loss of bowel or bladder control. Here today with family member. Review of Systems HENT: Negative. Respiratory: Negative. Cardiovascular: Negative. Gastrointestinal: Negative. Genitourinary: Negative. Musculoskeletal: Positive for back pain. All other systems reviewed and are negative. PAST MEDICAL HISTORY Diagnosis Date Acute gastritis Anxiety state 01/05/2009 BPH (benign prostatic hyperplasia) 03/17/2013 Diverticulosis of colon (without mention of hemorrhage) Diverticulosis Essential hypertension, benign 01/08/2006 GERD (gastroesophageal reflux disease) 01/10/2011 Hemangioma of other sites liver Hyperbilirubinemia 05/10/2016 Hyperlipidemia LDL goal <100 03/28/2016 Parkinson's disease (HCC) 07/11/2017 Current Outpatient Medications Medication Sig Dispense Refill omeprazole (PRILOSEC) 20 mg capsule Take 2 capsules by mouth once daily. 180 capsule 3 traZODone (DESYREL) 50 mg tablet Take 1 tablet by mouth daily at bedtime. 90 tablet 1 metoprolol succinate ER (TOPROL XL) 25 mg 24 hr tablet Take 1 tablet by mouth once daily. 90 tablet 3 clopidogrel (PLAVIX) 75 mg tablet Take 1 tablet by mouth once daily. 90 tablet 3 tamsulosin (FLOMAX) 0.4 mg Take 2 capsules by mouth once daily. 180 capsule 3 atorvastatin (LIPITOR) 10 mg tablet Take 1 tablet by mouth once daily. 90 tablet 3 citalopram (CELEXA) 20 mg tablet Take 1 tablet by mouth once daily. 90 tablet 3 hydroCHLOROthiazide (HYDRODIURIL, ESIDRIX) 25 mg tablet Take 1 tablet by mouth once daily. 90 tablet 3 finasteride (PROSCAR) 5 mg tablet Take 1 tablet by mouth once daily. 90 tablet 3 amLODIPine (NORVASC) 10 mg tablet Take 1 tablet by mouth once daily. 90 tablet 3 rOPINIRole (REQUIP) 4 mg tablet Take 1 tablet by mouth three times daily. 90 tablet 3 nitroglycerin sublingual (NITROQUICK) 0.4 mg SL tablet Dissolve 1 tablet under the tongue every 5 minutes as needed for Chest Pain. 1 Bottle of 25 0 MULTIVITAMIN (MULTIPLE VITAMINS ORAL) Take by mouth once daily. NIACIN 500 MG TAB Take one(1) tablet two(2) times daily. 0 ASPIRIN 81 MG TAB Take one(1) tablet daily. 0 COMPLEX C SR 500 MG-25 MG-25 MG TAB 2 tabs daily 0 predniSONE (DELTASONE) 10 mg tablet Take 3 tablets by mouth once daily for 5 days. 15 tablet 0 No current facility-administered medications for this visit. PAST SURGICAL HISTORY Procedure Laterality Date COLONOSCOPY FLX DX W/COLLJ SPEC WHEN PFRMD 05/27/2013 Colonoscopy COLONOSCOPY FLX DX W/COLLJ SPEC WHEN PFRMD 01/19/2020 ESOPHAGOGASTRODUODENOSCOPY TRANSORAL DIAGNOSTIC EGD ESOPHAGOGASTRODUODENOSCOPY TRANSORAL DIAGNOSTIC 05/27/2013 EGD ESOPHAGOGASTRODUODENOSCOPY TRANSORAL DIAGNOSTIC 01/19/2020 PAST SURGICAL HISTORY OF Right 05/22/2017 Thu R Inguinal Herniorrhaphy with excison cord lipoma performed by Dr. Robe Mackenzie at [facility] REVSC OPN/PRQ FEM/POP W/STNT/ANGIOP SM VSL 03-18-14 RPR 1ST INGUN HRNA AGE 7 YRS/> REDUCIBLE Hernia repair, inguinal FAMILY HISTORY Problem Relation Age of Onset Hypertension Mother Stroke Mother GI Father Stroke Father Social History Tobacco Use Smoking status: Former Smokeless tobacco: Never Tobacco comments: quit 1999 Vaping Use Vaping Use: Never used Substance Use Topics Alcohol use: Yes Comment: seldom Drug use: No Objective BP 164/86 Pulse (!) 58 Temp 36.6 ?C (97.9 ?F) (Tympanic) Resp 18 Wt 73.6 kg (162 lb 3.2 oz) SpO2 97% BMI 23.27 kg/m? Physical Exam Vitals reviewed. Constitutional: Appearance: Normal appearance. HENT: Head: Normocephalic and atraumatic. Musculoskeletal: Comments: Patient tender in the right buttock area. Increased pain with walking. Normal strength and sensation in lower extremities. DTRs intact and symmetrical bilaterally. Legs are pink and warm. Pedal pulses 1+ Neurological: Mental Status: He is alert. Assessment and Plan ASSESSMENT/PLAN: 1. Back pain of lumbar region with sciatica - ICD9: 724.2, 724.3, ICD10: M54.40 Sciatica -X-rays show degenerative disc disease as well as osteoarthritis. - Ice for localized tenderness - Prednisone burst- see orders -Also use Tylenol. Given stretches. If not improving follow-up with primary care. - XR LUMBAR GENERAL 3V AP/LAT/L5-S1 Kimberlee Salazar PA-C [facility] 01-31-2023 History of Present illness Narrative This note was created using Curious Senseriter. Subjective Ryan Soriano is a 87 year old male. HPI Patient presents with right lower back pain rating into his right leg over the past 2 days. He denies any injury or trauma. Feels better if he stretches the leg or with sitting. It is worsening if he is standing for longer periods of time. No numbness or tingling. No falls recently. No rash. He had back problem several years ago but since he has been working that had improved. No loss of bowel or bladder control. Here today with family member. Review of Systems HENT: Negative. Respiratory: Negative. Cardiovascular: Negative. Gastrointestinal: Negative. Genitourinary: Negative. Musculoskeletal: Positive for back pain. All other systems reviewed and are negative. PAST MEDICAL HISTORY Diagnosis Date Acute gastritis Anxiety state 01/05/2009 BPH (benign prostatic hyperplasia) 03/17/2013 Diverticulosis of colon (without mention of hemorrhage) Diverticulosis Essential hypertension, benign 01/08/2006 GERD (gastroesophageal reflux disease) 01/10/2011 Hemangioma of other sites liver Hyperbilirubinemia 05/10/2016 Hyperlipidemia LDL goal <100 03/28/2016 Parkinson's disease (HCC) 07/11/2017 Current Outpatient Medications Medication Sig Dispense Refill omeprazole (PRILOSEC) 20 mg capsule Take 2 capsules by mouth once daily. 180 capsule 3 traZODone (DESYREL) 50 mg tablet Take 1 tablet by mouth daily at bedtime. 90 tablet 1 metoprolol succinate ER (TOPROL XL) 25 mg 24 hr tablet Take 1 tablet by mouth once daily. 90 tablet 3 clopidogrel (PLAVIX) 75 mg tablet Take 1 tablet by mouth once daily. 90 tablet 3 tamsulosin (FLOMAX) 0.4 mg Take 2 capsules by mouth once daily. 180 capsule 3 atorvastatin (LIPITOR) 10 mg tablet Take 1 tablet by mouth once daily. 90 tablet 3 citalopram (CELEXA) 20 mg tablet Take 1 tablet by mouth once daily. 90 tablet 3 hydroCHLOROthiazide (HYDRODIURIL, ESIDRIX) 25 mg tablet Take 1 tablet by mouth once daily. 90 tablet 3 finasteride (PROSCAR) 5 mg tablet Take 1 tablet by mouth once daily. 90 tablet 3 amLODIPine (NORVASC) 10 mg tablet Take 1 tablet by mouth once daily. 90 tablet 3 rOPINIRole (REQUIP) 4 mg tablet Take 1 tablet by mouth three times daily. 90 tablet 3 nitroglycerin sublingual (NITROQUICK) 0.4 mg SL tablet Dissolve 1 tablet under the tongue every 5 minutes as needed for Chest Pain. 1 Bottle of 25 0 MULTIVITAMIN (MULTIPLE VITAMINS ORAL) Take by mouth once daily. NIACIN 500 MG TAB Take one(1) tablet two(2) times daily. 0 ASPIRIN 81 MG TAB Take one(1) tablet daily. 0 COMPLEX C SR 500 MG-25 MG-25 MG TAB 2 tabs daily 0 predniSONE (DELTASONE) 10 mg tablet Take 3 tablets by mouth once daily for 5 days. 15 tablet 0 No current facility-administered medications for this visit. PAST SURGICAL HISTORY Procedure Laterality Date COLONOSCOPY FLX DX W/COLLJ SPEC WHEN PFRMD 05/27/2013 Colonoscopy COLONOSCOPY FLX DX W/COLLJ SPEC WHEN PFRMD 01/19/2020 ESOPHAGOGASTRODUODENOSCOPY TRANSORAL DIAGNOSTIC EGD ESOPHAGOGASTRODUODENOSCOPY TRANSORAL DIAGNOSTIC 05/27/2013 EGD ESOPHAGOGASTRODUODENOSCOPY TRANSORAL DIAGNOSTIC 01/19/2020 PAST SURGICAL HISTORY OF Right 05/22/2017 Thu R Inguinal Herniorrhaphy with excison cord lipoma performed by Dr. Robe Mackenzie at [facility] REVSC OPN/PRQ FEM/POP W/STNT/ANGIOP SM VSL 03-18-14 RPR 1ST INGUN HRNA AGE 7 YRS/> REDUCIBLE Hernia repair, inguinal FAMILY HISTORY Problem Relation Age of Onset Hypertension Mother Stroke Mother GI Father Stroke Father Social History Tobacco Use Smoking status: Former Smokeless tobacco: Never Tobacco comments: quit 1999 Vaping Use Vaping Use: Never used Substance Use Topics Alcohol use: Yes Comment: seldom Drug use: No Objective BP 164/86 Pulse (!) 58 Temp 36.6 C (97.9 F) (Tympanic) Resp 18 Wt 73.6 kg (162 lb 3.2 oz) SpO2 97% BMI 23.27 kg/m Physical Exam Vitals reviewed. Constitutional: Appearance: Normal appearance. HENT: Head: Normocephalic and atraumatic. Musculoskeletal: Comments: Patient tender in the right buttock area. Increased pain with walking. Normal strength and sensation in lower extremities. DTRs intact and symmetrical bilaterally. Legs are pink and warm. Pedal pulses 1+ Neurological: Mental Status: He is alert. Assessment and Plan ASSESSMENT/PLAN: 1. Back pain of lumbar region with sciatica - ICD9: 724.2, 724.3, ICD10: M54.40 Sciatica -X-rays show degenerative disc disease as well as osteoarthritis. - Ice for localized tenderness - Prednisone burst- see orders -Also use Tylenol. Given stretches. If not improving follow-up with primary care. - XR LUMBAR GENERAL 3V AP/LAT/L5-S1 Kimberlee Salazar PA-C documented in this encounter [facility] 01-31-2023 Note HNO ID: [id number] Author: RT Mathieu(R) Service: Nuclear Medicine Author Type: Technologist Type: Progress Notes Filed: 01/31/2023 11:11 AM Note Text: Radiology Service Progress Note PATIENT NAME: Ryan Soriano DATE OF SERVICE: January 31, 2023 TIME: 11:04 AM PATIENT IDENTITY VERIFICATION COMPLETED USING TWO (2) IDENTIFIERS: Name and Date of confirmed by patient verbally. FALL SCREENING: Has the patient had 2 falls in the last year or 1 fall with injury or currently using an Ambulatory Assistive Device (Walker, Cane, Wheelchair, Crutches, etc.)? No PATIENT GENDER DATA: Male PATIENT RELEVANT IMPLANT DATA REVIEWED: Not Applicable RADIOLOGY DEPARTMENT: General X-ray: Exam(s) Completed: Spine X-Ray(s): Lumbar AP / LAT / L5-S1 PERIPHERAL IV DATA: Not applicable SIGNED BY: RT Mathieu(R) January 31, 2023 11:04 AM [facility] 01-12-2023 Miscellaneous Notes Patient daughter Pili petty father has been taking Trazodone 50 mg full tablet at bedtime instead of the half tablet. Daughter asking for new rx since father has 2 pills left. Pending rx if wanted and needs another medication refill also. Please advise Patient has been identified by name and date of : daughter phones for refill(s): Requested Prescriptions Pending Prescriptions Disp Refills omeprazole (PRILOSEC) 20 mg capsule 180 capsule 3 Sig: Take 2 capsules by mouth once daily. traZODone (DESYREL) 50 mg tablet 90 tablet 1 Sig: Take 1 tablet by mouth daily at bedtime. Date of last office visit in primary care: 12/22/2022 , has appt 06/28/2023 Last 2 Encounter Wt Readings: Date: Wt: 12/22/2022 72.6 kg (160 lb) 11/27/2022 73 kg (161 lb) Previous labs/tests for medication: Not applicable Please advise. Thank you. Юлия Deng LPN documented in this encounter [facility] 12-22-2022 Note HNO ID: [id number] Author: Radha Durbin PA-C Service: ? Author Type: Physician Fitness Trainer Type: Progress Notes Filed: 12/22/2022 4:06 PM Note Text: 87 year old male with c/o to follow up med change with Trazedone HS Sleeping better, feeling a lot better. Getting pretty close to 8h. Feels pretty good in the morning. States stomach is no longer hurting. Notes SOB if exerting as in push mowing on backs or weed whacking on a steep hill. Gets SOB walking up inclines. Kids are after him to stop. No chest pain, resolves with a few minutes of rest. HISTORIES FAMILY HISTORY Problem Relation Age of Onset Hypertension Mother Stroke Mother GI Father Stroke Father PAST MEDICAL HISTORY Diagnosis Date Acute gastritis Anxiety state 01/05/2009 BPH (benign prostatic hyperplasia) 03/17/2013 Diverticulosis of colon (without mention of hemorrhage) Diverticulosis Essential hypertension, benign 01/08/2006 GERD (gastroesophageal reflux disease) 01/10/2011 Hemangioma of other sites liver Hyperbilirubinemia 05/10/2016 Hyperlipidemia LDL goal <100 03/28/2016 Parkinson's disease (HCC) 07/11/2017 PAST SURGICAL HISTORY Procedure Laterality Date COLONOSCOPY FLX DX W/COLLJ SPEC WHEN PFRMD 05/27/2013 Colonoscopy COLONOSCOPY FLX DX W/COLLJ SPEC WHEN PFRMD 01/19/2020 ESOPHAGOGASTRODUODENOSCOPY TRANSORAL DIAGNOSTIC EGD ESOPHAGOGASTRODUODENOSCOPY TRANSORAL DIAGNOSTIC 05/27/2013 EGD ESOPHAGOGASTRODUODENOSCOPY TRANSORAL DIAGNOSTIC 01/19/2020 PAST SURGICAL HISTORY OF Right 05/22/2017 Thu R Inguinal Herniorrhaphy with excison cord lipoma performed by Dr. Robe Mackenzie at [facility] REVSC OPN/PRQ FEM/POP W/STNT/ANGIOP SM VSL 03-18-14 RPR 1ST INGUN HRNA AGE 7 YRS/> REDUCIBLE Hernia repair, inguinal Social History Tobacco Use Smoking status: Former Smokeless tobacco: Never Tobacco comments: quit 1999 Vaping Use Vaping Use: Never used Substance Use Topics Alcohol use: Yes Comment: seldom Drug use: No ACTIVE PROBLEM LIST Essential Hypertension, Benign Anxiety State Gerd (Gastroesophageal Reflux Disease) Bph (Benign Prostatic Hyperplasia) Pad (Peripheral Artery Disease) (Hcc) Hyperlipidemia Ldl Goal <100 Hyperbilirubinemia Parkinson's Disease (Hcc) Angina Pectoris (Hcc) Restless Legs Syndrome Iron Deficiency Anemia Due to Chronic Blood Loss Coronary Artery Disease Involving [place] Coronary Artery of [place] Heart S/P Primary Angioplasty With Coronary Stent Fall From Standing Current Outpatient Medications Medication Sig Dispense Refill metoprolol succinate ER (TOPROL XL) 25 mg 24 hr tablet Take 1 tablet by mouth once daily. 90 tablet 3 clopidogrel (PLAVIX) 75 mg tablet Take 1 tablet by mouth once daily. 90 tablet 3 tamsulosin (FLOMAX) 0.4 mg Take 2 capsules by mouth once daily. 180 capsule 3 omeprazole (PRILOSEC) 20 mg capsule Take 2 capsules by mouth once daily. 90 capsule 3 traZODone (DESYREL) 50 mg tablet Take 0.5 tablets by mouth daily at bedtime. 30 tablet 2 atorvastatin (LIPITOR) 10 mg tablet Take 1 tablet by mouth once daily. 90 tablet 3 citalopram (CELEXA) 20 mg tablet Take 1 tablet by mouth once daily. 90 tablet 3 hydroCHLOROthiazide (HYDRODIURIL, ESIDRIX) 25 mg tablet Take 1 tablet by mouth once daily. 90 tablet 3 finasteride (PROSCAR) 5 mg tablet Take 1 tablet by mouth once daily. 90 tablet 3 amLODIPine (NORVASC) 10 mg tablet Take 1 tablet by mouth once daily. 90 tablet 3 rOPINIRole (REQUIP) 4 mg tablet Take 1 tablet by mouth three times daily. 90 tablet 3 nitroglycerin sublingual (NITROQUICK) 0.4 mg SL tablet Dissolve 1 tablet under the tongue every 5 minutes as needed for Chest Pain. 1 Bottle of 25 0 MULTIVITAMIN (MULTIPLE VITAMINS ORAL) Take by mouth once daily. NIACIN 500 MG TAB Take one(1) tablet two(2) times daily. 0 ASPIRIN 81 MG TAB Take one(1) tablet daily. 0 COMPLEX C SR 500 MG-25 MG-25 MG TAB 2 tabs daily 0 No current facility-administered medications for this visit. SHINGRIX VACCINE(1 of 2) Never done COVID-19 VACCINE(4 - Booster for Pfizer series) due on 07/13/2021 DEPRESSION ASSESSMENT Never done EXAM: BP 132/68 Pulse (!) 58 Resp 16 Wt 72.6 kg (160 lb) SpO2 95% BMI 22.96 kg/m? Pleasant well appearing adult man in no acute distress. Alert and oriented all spheres. Normal affect and cognition. Speech normal. No deficits to learning or comprehension. Skin warm, dry, pink to lips and nailbeds. Normal turgor. Multiple AKs on cheeks, forearms, some with scabbing, scaly/ flaking. Respirations regular and unlabored. Chest is normal shape. Lungs are clear to all pena with good air exchange through out. HRRR without murmur or gallop. No lifts, heaves, or rubs. Extrem: no clubbing or cyanosis. Edema: none. Extremities are warm and pink with prompt capillary refill. ASSESSMENT/PLAN: 1. Advanced actinic keratoses - ICD9: 702.0, ICD10: L57.0 (primary diagnosis) Consult to Dr. Barajas (more content not included)... [facility] 11-30-2022 Miscellaneous Notes Images from the original note were not included. Patient's daughter Pili Payne, notified. ZACKARY Vines PA-C 11/30/2022 9:01 AM EDT Please let him know labs all look good. Thanks, Chaz Durbin PA-C documented in this encounter [facility] 11-27-2022 Note HNO ID: [id number] Author: Radha Durbin PA-C Service: ? Author Type: Physician Fitness Trainer Type: Progress Notes Filed: 11/28/2022 6:23 PM Note Text: 87 year old male with c/o here for follow Talked about 's passing and memories. Currently living alone with family supportive and checking routinely. Meals 2-3 times a week and eats leftovers. Asking for something for sleep Can't nap in the day, never has been able. Lays in bed at night and thinks about his and life in general. Has a lot of gas rifting up . No heart burn . Bowels are loose to solid- quite a bit of diarrhea. Has a week didn't go for three days. Son and daughter keep him supplied with food. Often doesn't feel like eating. Takes TUMS once in awhile. Meals: breakfast: cereal or eggs/ toast. 1/2 banana. Whole wheat bread. Eats leftovers. Soup. Dinner usually lftover. Appetite low. S/p primary angioplasty with coronary stent (primary encounter diagnosis) Pad (peripheral artery disease[facility]) Hyperlipidemia ldl goal <100 Essential hypertension, benign Angina pectoris ([facility]) Cardiovascular interval hx: Sees [facility] 02/27/2022 exercise myocardial perfusion stress test demonstrated baseline sinus bradycardia with heart rate of 51, regular Wolf protocol x8 minutes with maximum HR 157 bpm, 115% of maximum expected heart rate, workload of 10.1 mEq. Maintain sinus rhythm to test, did not have upsloping ST changes during peak exercise which did not meet criteria for ischemia. Peak blood pressure 180/58 mmHg. Tracer uptake was noted in all areas of the myocardium indicating no areas of reversibility to suggest ischemia. 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 Was recommended to have a screening stress test to insert patency of LAD stent 09/08/2019 cardiac cath: left dominant, EF 50%, single vessel disease mid- LAD 95%, CX< 30%. RCA no disease, mild anterior hypokinesis. PTCA/JAM 2.5 x 32 Promus Synergy LAD 85-0% Dr. Brooks 08/22/2019 presented to ER with chest pain, EKG WNL, cardiac isoenzymes WNL. Had subsequent outpatient stress test with exercise at 10.1 METS, ST depression noted with perfusion showing distal anterior ischemia at high workload. Current meds: HCTZ 25mg daily Metoprolol succinate ER 25mg NTG 0.4mg Use of NTG: No Chest pain, arm, jaw pain, neck, or upper back pain suggestive of angina: No. SOB: No Dyspnea with exertion: No orthopnea: No racing or irregular heartbeats: No palpitations: No syncopal sx: None current. In past notes: Yes: occurs in hinduism, sudden feeling of lightheadedness, pallor, weakness, lasts about 20 minutes. Seemed better when he went outside. Has happened 2 years ago. Father had low sugar. Doesn't eat prior to hinduism and then goes out to [facility] after. Unexplainable fatigue No Leg swelling: No Nausea: No diaphoresis: No Heartburn: No Claudication: No Smoking: No Following Low cholesterol, high fiber diet? Yes If on statin: muscle aches? No If on statin: GI sx or diarrhea? No Additional history does a lot of mowing. 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 Lab review: No recent labs Parkinson's disease (hcc) Restless legs syndrome medication: Ropinerol 4mg three times a day Left hand shaky No issues with walking generally. Notes handwriting is very small and difficult to write any more. Gastroesophageal reflux disease, unspecified whether esophagitis present Current medication: omeprazole 20mg daily AC. Current symptoms: none. Last Mg level if on PPI chronically: due. Heartburn is controlled: Yes. Dysphagia: No. Bloody or black stools: No. Bowel changes: No. Iron deficiency anemia due to chronic blood loss No recent labs Benign prostatic hyperplasia with nocturia Current medications: Tamsulosin 0.4mg qHS Urine flow is good. Urinates 4-5 times a night. No incontinence. Occasional urgency and dribbling. Anxiety state No meds, doesn't feel anxious. HISTORIES FAMILY HISTORY Problem Relation Age of Onset Hypertension Mother Stroke Mother GI Father Stroke Father PAST MEDICAL HISTORY Diagnosis Date Acute gastritis Anxiety state 01/05/2009 BPH (benign prostatic hyperplasia) 03/17/2013 Diverticulosis of colon (without mention of hemorrhage) Diverticulosis Essential hypertension, benign 01/08/2006 GERD (gastroesophageal reflux disease) 01/10/2011 Hemangioma of other sites liver Hyperbilirubinemia 05/10/2016 Hyperlipidemia LDL goal <100 03/28/2016 Parkinson's disease (HCC) 07/11/2017 PAST SURGICAL HISTORY Procedure Laterality Date COLONOSCOPY FLX DX W/COLLJ SPEC WHEN PFRMD 05/27/2013 Colonoscopy COLONOSCOPY FLX DX W/COLLJ SPEC WHEN PFRMD 01/19/2020 ESOPHAGOGASTRODUODENOSCOPY TRANSORAL DIAGNOSTIC EGD ESOPHAGOGASTRODUODENOSCOPY TRANSORAL DIAGNOST (more content not included)... [facility] 11-27-2022 Instructions M Julien Durbin PA-C - 11/27/2022 3:54 PM EDT Trazodone (Patient Education - Adult Medication) You must carefully read the Consumer Information Use and Disclaimer below in order to understand and correctly use this information Pronunciation (TONGZ oh done) Brand Names: [place]-TraZODone; APO-TraZODone D; DOM-TraZODone; MYLAN-TraZODone [DSC]; Oleptro; PMS-TraZODone; RATIO-TraZODone [DSC]; TEVA-TraZODone; TraZODone-100; TraZODone-150; TraZODone-50 Warning For all patients taking this drug: Drugs like this one have raised the chance of suicidal thoughts or actions in children and young adults. The risk may be greater in people who have had these thoughts or actions in the past. All people who take this drug need to be watched closely. Call the doctor right away if signs like low mood (depression), nervousness, restlessness, grouchiness, panic attacks, or changes in mood or actions are new or worse. Call the doctor right away if any thoughts or actions of suicide occur. Children: This drug is not approved for use in children. However, the doctor may decide the benefits of taking this drug outweigh the risks. If your child has been given this drug, ask the doctor for information about the benefits and risks. Talk with the doctor if you have questions about giving this drug to your child. What is this drug used for? It is used to treat low mood (depression). It may be given to you for other reasons. Talk with the doctor. What do I need to tell my doctor BEFORE I take this drug? If you are allergic to this drug; any part of this drug; or any other drugs, foods, or substances. Tell your doctor about the allergy and what signs you had. If you have had a recent heart attack. If you have ever had a long QT on ECG or other heartbeat that is not normal. If you have any of these health problems: Low magnesium levels, low potassium levels, or slow heartbeat. If you are taking any of these drugs: Linezolid or methylene blue. If you have taken certain drugs for depression or Parkinson's disease in the last 14 days. This includes isocarboxazid, phenelzine, tranylcypromine, selegiline, or rasagiline. Very high blood pressure may happen. If you are taking any drugs that can cause a certain type of heartbeat that is not normal (prolonged QT interval). There are many drugs that can do this. Ask your doctor or pharmacist if you are not sure. This is not a list of all drugs or health problems that interact with this drug. Tell your doctor and pharmacist about all of your drugs (prescription or OTC, natural products, vitamins) and health problems. You must check to make sure that it is safe for you to take this drug with all of your drugs and health problems. Do not start, stop, or change the dose of any drug without checking with your doctor. What are some things I need to know or do while I take this drug? Tell all of your health care providers that you take this drug. This includes your doctors, nurses, pharmacists, and dentists. Avoid driving and doing other tasks or actions that call for you to be alert until you see how this drug affects you. To lower the chance of feeling dizzy or passing out, rise slowly if you have been sitting or lying down. Be careful going up and down stairs. Talk with your doctor before you drink alcohol or use other drugs and natural products that slow your actions. An unsafe heartbeat that is not normal (long QT on ECG) has happened with this drug. This may raise the chance of sudden . Talk with the doctor. This drug may raise the chance of bleeding. Sometimes, bleeding can be life-threatening. Talk with the doctor. Some people may have a higher chance of eye problems with this drug. Your doctor may want you to have an eye exam to see if you have a higher chance of these eye problems. Call your doctor right away if you have eye pain, change in eyesight, or swelling or redness in or around the eye. This drug can cause low sodium levels. Very low sodium levels can be life-threatening, leading to seizures, passing out, trouble breathing, or . If you are 65 or older, use this drug with care. You could have more side effects. Tell your doctor if you are , plan on getting , or are breast-feeding. You will need to talk about the benefits and risks to you and the baby. What are some side effects that I need to call my doctor about right away? WARNING/CAUTION: Even though it may be rare, some people may have very bad and sometimes deadly side effects when taking a drug. Tell your doctor or get medical help right away if you have any of the following signs or symptoms that may be related to a very bad side effect: Signs of an allergic reaction, like rash; hives; itching; red, swollen, blistered, or peeling skin with or without fever; wheezing; tightness in the chest or throat; trouble breathing, swallowing, or talking; unusual hoarseness; or swelling of the mouth, face, lips, tongue, or throat. Signs of low sodium levels like headache, trouble focusing, memory problems, feeling confused, weakness, seizures, or change in balance. Signs of bleeding like throwing up or coughing up blood; vomit that looks like coffee grounds; blood in the urine; black, red, or tarry stools; bleeding from the gums; abnormal vaginal bleeding; bruises without a cause or that get bigger; or bleeding you cannot stop. Signs of high or low blood pressure like very bad headache or dizziness, passing out, or change in eyesight. Fast or abnormal heartbeat. Swelling. Feeling confused. Call your doctor right away if you have a painful erection (hard penis) or an erection that lasts for longer than 4 hours. This may happen even when you are not having sex. If this is not treated right away, it may lead to lasting sex problems and you may not be able to have sex. A severe and sometimes deadly problem called serotonin syndrome may happen. The risk may be greater if you also take certain other drugs. Call your doctor right away if you have agitation; change in balance; confusion; hallucinations; fever; fast or abnormal heartbeat; flushing; muscle twitching or stiffness; seizures; shivering or shaking; sweating a lot; severe diarrhea, upset stomach, or throwing up; or very bad headache. What are some other side effects of this drug? All drugs may cause side effects. However, many people have no side effects or only have minor side effects. Call your doctor or get medical help if any of these side effects or any other side effects bother you or do not go away: Feeling dizzy, sleepy, tired, or weak. Constipation, diarrhea, stomach pain, upset stomach, or throwing up. Dry mouth. Headache. Feeling nervous and excitable. Shakiness. Muscle pain. Stuffy nose. Weight gain or loss. These are not all of the side effects that may occur. If you have questions about side effects, call your doctor. Call your doctor for medical advice about side effects. You may report side effects to your national health agency. How is this drug best taken? Use this drug as ordered by your doctor. Read all information given to you. Follow all instructions closely. All products: If you feel sleepy after taking this drug, talk with your doctor. Your doctor may change your dose or when you take this drug. Keep taking this drug as you have been told by your doctor or other health care provider, even if you feel well. It may take several weeks to see the full effects. Do not stop taking this drug all of a sudden without calling your doctor. You may have a greater risk of side effects. If you need to stop this drug, you will want to slowly stop it as ordered by your doctor. Regular-release tablets: Take this drug right after a meal or light snack. Tablet may be broken in half. Do not chew or crush. Extended-release tablets: Take on an empty stomach. Swallow whole. Do not chew or crush. Long-acting tablets may be broken in half. What do I do if I miss a dose? Take a missed dose as soon as you think about it. If it is close to the time for your next dose, skip the missed dose and go back to your normal time. Do not take 2 doses at the same time or extra doses. How do I store and/or throw out this drug? Store at room temperature protected from light. Store in a dry place. Do not store in a bathroom. Keep all drugs in a safe place. Keep all drugs out of the reach of children and pets. Throw away unused or drugs. Do not flush down a toilet or pour down a drain unless you are told to do so. Check with your pharmacist if you have questions about the best way to throw out drugs. There may be drug take-back programs in your area. General drug facts If your symptoms or health problems do not get better or if they become worse, call your doctor. Do not share your drugs with others and do not take anyone else's drugs. Some drugs may have another patient information leaflet. If you have any questions about this drug, please talk with your doctor, nurse, pharmacist, or other health care provider. If you think there has been an overdose, call your poison control center or get medical care right away. Be ready to tell or show what was taken, how much, and when it happened. Last Reviewed Date 2019-11-20 documented in this encounter [facility] 11-27-2022 History of Present illness Narrative 87 year old male with c/o here for follow Talked about 's passing and memories. Currently living alone with family supportive and checking routinely. Meals 2-3 times a week and eats leftovers. Asking for something for sleep Can't nap in the day, never has been able. Lays in bed at night and thinks about his and life in general. Has a lot of gas rifting up . No heart burn . Bowels are loose to solid- quite a bit of diarrhea. Has a week didn't go for three days. Son and daughter keep him supplied with food. Often doesn't feel like eating. Takes TUMS once in awhile. Meals: breakfast: cereal or eggs/ toast. 1/2 banana. Whole wheat bread. Eats leftovers. Soup. Dinner usually lftover. Appetite low. S/p primary angioplasty with coronary stent (primary encounter diagnosis) Pad (peripheral artery disease) (hcc) Hyperlipidemia ldl goal <100 Essential hypertension, benign Angina pectoris (hcc) Cardiovascular interval hx: Sees [facility] 02/27/2022 exercise myocardial perfusion stress test demonstrated baseline sinus bradycardia with heart rate of 51, regular Wolf protocol x8 minutes with maximum HR 157 bpm, 115% of maximum expected heart rate, workload of 10.1 mEq. Maintain sinus rhythm to test, did not have upsloping ST changes during peak exercise which did not meet criteria for ischemia. Peak blood pressure 180/58 mmHg. Tracer uptake was noted in all areas of the myocardium indicating no areas of reversibility to suggest ischemia. 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 Was recommended to have a screening stress test to insert patency of LAD stent 09/08/2019 cardiac cath: left dominant, EF 50%, single vessel disease mid- LAD 95%, CX< 30%. RCA no disease, mild anterior hypokinesis. PTCA/JAM 2.5 x 32 Promus Synergy LAD 85-0% Dr. Brooks 08/22/2019 presented to ER with chest pain, EKG WNL, cardiac isoenzymes WNL. Had subsequent outpatient stress test with exercise at 10.1 METS, ST depression noted with perfusion showing distal anterior ischemia at high workload. Current meds: HCTZ 25mg daily Metoprolol succinate ER 25mg NTG 0.4mg Use of NTG: No Chest pain, arm, jaw pain, neck, or upper back pain suggestive of angina: No. SOB: No Dyspnea with exertion: No orthopnea: No racing or irregular heartbeats: No palpitations: No syncopal sx: None current. In past notes: Yes: occurs in hinduism, sudden feeling of lightheadedness, pallor, weakness, lasts about 20 minutes. Seemed better when he went outside. Has happened 2 years ago. Father had low sugar. Doesn't eat prior to hinduism and then goes out to [facility] after. Unexplainable fatigue No Leg swelling: No Nausea: No diaphoresis: No Heartburn: No Claudication: No Smoking: No Following Low cholesterol, high fiber diet? Yes If on statin: muscle aches? No If on statin: GI sx or diarrhea? No Additional history does a lot of mowing. 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 Lab review: No recent labs Parkinson's disease (hcc) Restless legs syndrome medication: Ropinerol 4mg three times a day Left hand shaky No issues with walking generally. Notes handwriting is very small and difficult to write any more. Gastroesophageal reflux disease, unspecified whether esophagitis present Current medication: omeprazole 20mg daily AC. Current symptoms: none. Last Mg level if on PPI chronically: due. Heartburn is controlled: Yes. Dysphagia: No. Bloody or black stools: No. Bowel changes: No. Iron deficiency anemia due to chronic blood loss No recent labs Benign prostatic hyperplasia with nocturia Current medications: Tamsulosin 0.4mg qHS Urine flow is good. Urinates 4-5 times a night. No incontinence. Occasional urgency and dribbling. Anxiety state No meds, doesn't feel anxious. HISTORIES FAMILY HISTORY Problem Relation Age of Onset Hypertension Mother Stroke Mother GI Father Stroke Father PAST MEDICAL HISTORY Diagnosis Date Acute gastritis Anxiety state 01/05/2009 BPH (benign prostatic hyperplasia) 03/17/2013 Diverticulosis of colon (without mention of hemorrhage) Diverticulosis Essential hypertension, benign 01/08/2006 GERD (gastroesophageal reflux disease) 01/10/2011 Hemangioma of other sites liver Hyperbilirubinemia 05/10/2016 Hyperlipidemia LDL goal <100 03/28/2016 Parkinson's disease (HCC) 07/11/2017 PAST SURGICAL HISTORY Procedure Laterality Date COLONOSCOPY FLX DX W/COLLJ SPEC WHEN PFRMD 05/27/2013 Colonoscopy COLONOSCOPY FLX DX W/COLLJ SPEC WHEN PFRMD 01/19/2020 ESOPHAGOGASTRODUODENOSCOPY TRANSORAL DIAGNOSTIC EGD ESOPHAGOGASTRODUODENOSCOPY TRANSORAL DIAGNOSTIC 05/27/2013 EGD ESOPHAGOGASTRODUODENOSCOPY TRANSORAL DIAGNOSTIC 01/19/2020 PAST SURGICAL HISTORY OF Right 05/22/2017 Thu R Inguinal Herniorrhaphy with excison cord lipoma performed by Dr. Robe Mackenzie at [facility] REVSC OPN/PRQ FEM/POP W/STNT/ANGIOP SM VSL 03-18-14 RPR 1ST INGUN HRNA AGE 7 YRS/> REDUCIBLE Hernia repair, inguinal Social History Tobacco Use Smoking status: Former Smokeless tobacco: Never Tobacco comments: quit 1999 Vaping Use Vaping Use: Never used Substance Use Topics Alcohol use: Yes Comment: seldom Drug use: No ACTIVE PROBLEM LIST Essential Hypertension, Benign Anxiety State Gerd (Gastroesophageal Reflux Disease) Bph (Benign Prostatic Hyperplasia) Pad (Peripheral Artery Disease) (Hcc) Hyperlipidemia Ldl Goal <100 Hyperbilirubinemia Parkinson's Disease (Hcc) Angina Pectoris (Hcc) Restless Legs Syndrome Iron Deficiency Anemia Due to Chronic Blood Loss Coronary Artery Disease Involving [place] Coronary Artery of [place] Heart S/P Primary Angioplasty With Coronary Stent Fall From Standing Current Outpatient Medications Medication Sig Dispense Refill atorvastatin (LIPITOR) 10 mg tablet Take 1 tablet by mouth once daily. 90 tablet 3 citalopram (CELEXA) 20 mg tablet Take 1 tablet by mouth once daily. 90 tablet 3 hydroCHLOROthiazide (HYDRODIURIL, ESIDRIX) 25 mg tablet Take 1 tablet by mouth once daily. 90 tablet 3 finasteride (PROSCAR) 5 mg tablet Take 1 tablet by mouth once daily. 90 tablet 3 amLODIPine (NORVASC) 10 mg tablet Take 1 tablet by mouth once daily. 90 tablet 3 tamsulosin (FLOMAX) 0.4 mg Take 1 capsule by mouth once daily. 90 capsule 1 omeprazole (PRILOSEC) 20 mg capsule Take 1 capsule by mouth once daily. 90 capsule 3 clopidogrel (PLAVIX) 75 mg tablet Take 1 tablet by mouth once daily. 90 tablet 3 metoprolol succinate ER (TOPROL XL) 25 mg 24 hr tablet Take 1 tablet by mouth once daily. HOLD 04/18/21 90 tablet 3 rOPINIRole (REQUIP) 4 mg tablet Take 1 tablet by mouth three times daily. 90 tablet 3 nitroglycerin sublingual (NITROQUICK) 0.4 mg SL tablet Dissolve 1 tablet under the tongue every 5 minutes as needed for Chest Pain. 1 Bottle of 25 0 MULTIVITAMIN (MULTIPLE VITAMINS ORAL) Take by mouth once daily. NIACIN 500 MG TAB Take one(1) tablet two(2) times daily. 0 ASPIRIN 81 MG TAB Take one(1) tablet daily. 0 COMPLEX C SR 500 MG-25 MG-25 MG TAB 2 tabs daily 0 No current facility-administered medications for this visit. COVID-19 VACCINE(4 - Booster for ibeatyou series) due on 07/13/2021 ADVANCE DIRECTIVE DISCUSSION due on 07/30/2022 DEPRESSION ASSESSMENT Never done LDL CHOLESTEROL due on 12/24/2022 EXAM: BP 130/68 Pulse (!) 57 Wt 73 kg (161 lb) SpO2 96% BMI 23.10 kg/m Pleasant well appearing adult man here with daughter, in no acute distress. Alert and oriented all spheres. Normal affect and cognition. Speech normal. No deficits to learning or comprehension. Skin warm, dry, pink to lips and nailbeds. Normal turgor. Respirations regular and unlabored. HEENT: NCAT. No scleral icterus or conjunctival injection. TM's clear. Nose and oropharynx free from injection or lesion. Oral membranes moist and pink. No cervical lymph nodes. Thyroid non-tender, no masses, or enlargement. Carotids pulses 2+/4+ without bruits. No JVD with HOB at 30 degrees. Chest is normal shape. Lungs are clear to all pena with good air exchange through out. HRRR without murmur or gallop. No lifts, heaves, or rubs. Abdomen: active bowel sounds throughout, soft, nontender, no masses or organomegaly. No CVAT. Extrem: no clubbing or cyanosis. Edema: none. Extremities are warm and pink with prompt capillary refill. ASSESSMENT/PLAN: 1. S/P primary angioplasty with coronary stent - ICD9: V45.82, ICD10: Z95.5 (primary diagnosis) Stable, asymptomatic. Follows with cardiology - METOPROLOL SUCCINATE ER 25 MG TABLET,EXTENDED RELEASE 24 HR - CLOPIDOGREL 75 MG TABLET - CBC - COMP METABOLIC PANEL - LIPID PANEL BASIC 2. PAD (peripheral artery disease) (HCC) - ICD9: 443.9, ICD10: I73.9 No overt claudication. Legs tire more easily. - CLOPIDOGREL 75 MG TABLET 3. Hyperlipidemia LDL goal <100 - ICD9: 272.4, ICD10: E78.5 - to be determined upon return of lab results - Continue current medication. - Encouraged following a low fat, low cholesterol diet. - Discussed the benefits of regular aerobic exercise and weight loss. 4. Essential hypertension, benign - ICD9: 401.1, ICD10: I10 - good control - Continue current medication(s) - Recommended regular aerobic exercise. - Recommend home blood pressure monitoring, to bring results in on next visit - Goal of BP <130/80 5. Angina pectoris (HCC) - ICD9: 413.9, ICD10: I20.9 Asymptomatic. 6. Parkinson's disease (HCC) - ICD9: 332.0, ICD10: G20 Stable without significant progress other than may be more forgetful but also significant changes due to living alone. 7. Gastroesophageal reflux disease, unspecified whether esophagitis present - ICD9: 530.81, ICD10: K21.9 - Discussed lifestyle modifications including limiting caffeine, no meals three hours before sleep, and head of bed elevation - OMEPRAZOLE 20 MG CAPSULE,DELAYED RELEASE 8. Iron deficiency anemia due to chronic blood loss - ICD9: 280.0, ICD10: D50.0 Recheck lab 9. Benign prostatic hyperplasia with nocturia - ICD9: 600.01, 788.43, ICD10: N40.1, R35.1 - UA DIP, URINE (POC) - TAMSULOSIN 0.4 MG CAPSULE: trial 0.8mg qHS 10. Restless legs syndrome - ICD9: 333.94, ICD10: G25.81 Seems less bothersome. Stopped Ropinerole for a while and had significant sx. 11. Anxiety state - ICD9: 300.00, ICD10: F41.1 refill - TRAZODONE 50 MG TABLET 12. Elevated PSA - ICD9: 790.93, ICD10: R97.20 - PSA/PROSTSPECAG DIAG 14. Chronic insomnia - ICD9: 780.52, ICD10: F51.04 Trial low dose - TRAZODONE 50 MG TABLET Radha Durbin PA-C documented in this encounter [facility] 08-07-2022 Miscellaneous Notes Patient phones requesting refills as follows: Requested Prescriptions Pending Prescriptions Disp Refills atorvastatin (LIPITOR) 10 mg tablet 90 tablet 3 Sig: Take 1 tablet by mouth once daily. citalopram (CELEXA) 20 mg tablet 90 tablet 3 Sig: Take 1 tablet by mouth once daily. hydroCHLOROthiazide (HYDRODIURIL, ESIDRIX) 25 mg tablet 90 tablet 3 Sig: Take 1 tablet by mouth once daily. finasteride (PROSCAR) 5 mg tablet 90 tablet 3 Sig: Take 1 tablet by mouth once daily. Please review and advise. Clarence Winters LPN Patient has been identified by name and date of : Yes Requested Prescriptions Pending Prescriptions Disp Refills atorvastatin (LIPITOR) 10 mg tablet 90 tablet 3 Sig: Take 1 tablet by mouth once daily. citalopram (CELEXA) 20 mg tablet 90 tablet 3 Sig: Take 1 tablet by mouth once daily. hydroCHLOROthiazide (HYDRODIURIL, ESIDRIX) 25 mg tablet 90 tablet 3 Sig: Take 1 tablet by mouth once daily. finasteride (PROSCAR) 5 mg tablet 90 tablet 3 Sig: Take 1 tablet by mouth once daily. RX INSTRUCTIONS: Patient aware RX will be sent to pharmacy. No need to notify patient. Charity Zhou documented in this encounter [facility] 07-07-2022 Miscellaneous Notes Patient has been identified by name and date of : Yes Patient phones for refill(s): Requested Prescriptions Pending Prescriptions Disp Refills amLODIPine (NORVASC) 10 mg tablet 90 tablet 3 Sig: Take 1 tablet by mouth once daily. Date of last office visit in primary care: 12/19/21 Last 2 Encounter Wt Readings: Date: Wt: 12/19/2021 76.2 kg (168 lb) 06/27/2021 75.8 kg (167 lb) Previous labs/tests for medication: Not applicable Please advise. Thank you. Tracy Lambert documented in this encounter [facility] 04-10-2022 Miscellaneous Notes Patient has been identified by name and date of : Yes Requested Prescriptions Pending Prescriptions Disp Refills tamsulosin (FLOMAX) 0.4 mg 90 capsule 1 Sig: Take 1 capsule by mouth once daily. RX INSTRUCTIONS: Patient aware RX will be sent to pharmacy. No need to notify patient. Mague Steiner MA Norberto: 11/2021 No appointment scheduled Last refill: 04/2021 Pharmacy verified in [facility] Patient has been identified by name and date of : Yes Patient aware RX will be sent to pharmacy. No need to notify patient. Patient phones for refill(s): Requested Prescriptions Pending Prescriptions Disp Refills tamsulosin (FLOMAX) 0.4 mg 90 capsule 1 Sig: Take 1 capsule by mouth once daily. Date of last office visit : 12/19/2021 Date of next office visit : 06/26/2022 Last 2 Encounter Wt Readings: Date: Wt: 12/19/2021 76.2 kg (168 lb) 06/27/2021 75.8 kg (167 lb) Please advise. Tamra Baez Pss documented in this encounter [facility] 01-09-2022 Miscellaneous Notes Patient has been identified by name and date of : Yes Pending Prescriptions Disp Refills OMEPRAZOLE 20 MG CAPSULE,DELAYED RELEASE 90 capsule 3 Sig: Take 1 capsule by mouth once daily. SOPHIA: No NORBERTO-12/19/21 Labs-12/19/21 NOV-06/26/22 med filled 12/21/20 RX INSTRUCTIONS: Patient aware RX will be sent to pharmacy. No need to notify patient. Theresa Barbour Pss documented in this encounter [facility] Benign prostatic hyperplasia with nocturia [facility] [place] [facility] Diagnosis S/P primary angioplasty with coronary stent Postsurgical percutaneous transluminal coronary angioplasty status PAD (peripheral artery disease) (HCC) Peripheral vascular disease, unspecified Hyperlipidemia LDL goal <100 Other and unspecified hyperlipidemia Anxiety state Anxiety state, unspecified Essential hypertension, benign Benign prostatic hyperplasia with nocturia [facility] Diagnosis S/P primary angioplasty with coronary stent- Primary Postsurgical percutaneous transluminal coronary angioplasty status PAD (peripheral artery disease) (HCC) Peripheral vascular disease, unspecified Hyperlipidemia LDL goal <100 Other and unspecified hyperlipidemia Essential hypertension, benign Angina pectoris (HCC) Other and unspecified angina pectoris Parkinson's disease (HCC) Paralysis agitans Gastroesophageal reflux disease, unspecified whether esophagitis present Iron deficiency anemia due to chronic blood loss Iron deficiency anemia secondary to blood loss (chronic) Benign prostatic hyperplasia with nocturia Restless legs syndrome Restless legs syndrome (RLS) Anxiety state Anxiety state, unspecified Elevated PSA Elevated prostate specific antigen (PSA) Chronic insomnia Insomnia, unspecified [facility] [place] [facility] Diagnosis Gastroesophageal reflux disease, unspecified whether esophagitis present Anxiety state Anxiety state, unspecified Chronic insomnia Insomnia, unspecified documented in this encounter [facility] note* Diagnosis Back pain of lumbar region with sciatica- Primary documented in this encounter [facility] note* Diagnosis Piriformis syndrome, left- Primary Somatic dysfunction of left sacroiliac joint documented in this encounter [facility] note* Diagnosis Abrasion of anterior right lower leg, initial encounter- Primary [facility] [place] [facility]* Diagnosis Atherosclerosis of aorta (HCC) Atherosclerosis of aorta documented in this encounter [facility] note* Diagnosis Anxiety state Anxiety state, unspecified Chronic insomnia Insomnia, unspecified documented in this encounter [facility] note* Diagnosis Coronary artery disease involving [place] coronary artery of [place] heart without angina pectoris- Primary S/P primary angioplasty with coronary stent Postsurgical percutaneous transluminal coronary angioplasty status Angina pectoris (HCC) Other and unspecified angina pectoris Atherosclerosis of aorta (HCC) Atherosclerosis of aorta Essential hypertension, benign Hyperlipidemia LDL goal <100 Other and unspecified hyperlipidemia PAD (peripheral artery disease) (HCC) Peripheral vascular disease, unspecified Parkinson's disease without dyskinesia, with fluctuating manifestations Hyperbilirubinemia Jaundice, unspecified, not of Gastroesophageal reflux disease, unspecified whether esophagitis present Benign prostatic hyperplasia with nocturia Anxiety state Anxiety state, unspecified Diarrhea, unspecified type documented in this encounter [facility] note* Diagnosis Benign prostatic hyperplasia with nocturia documented in this encounter [facility] for referral (narrative)* Diagnostic Procedure Only (Urgent) - Closed Specialty Diagnoses / Procedures Referred By Armando t Referred To Contact XR IMAGING Diagnoses Back pain of lumbar region with sciatica Procedures XR LUMBAR GENERAL 3V AP/LAT/L5-S1 RADEX SPINE LUMBOSACRAL 2/3 VIEWS Kimberlee Salazar, MARCIAC [address] [place] [address] Xr Imaging Referral ID Status Reason Start Date Expiration Date V isits Requested Visits Authorized [id number] Closed Auto-Generate d Referral 01/31/2023 03/01/2024 1 1 [facility] Reason for Referral Specialty Diagnoses / Procedures Referred By Armando jorgensen Referred To Contact CT IMAGING Diagnoses Atherosclerosis of aorta (HCC) Procedures CTA ABD/PEL W IVCON CT ANGIO ABD&PLVIS CNTRST MTRL W/WO CNTRST Radha Bob PA-C [address] [place] [address] [place] [id number] Referral ID Status Reason Start Date Expiration Date V isits Requested Visits Authorized [id number] Closed Auto-Generate d Referral 04/30/2023 07/29/2023 1 1 Summary Purpose Family History No Family History Records Found Advance Directives No Advanced Directives Records Found Additional Source Comments Source Comments (unrecognize d section and content) In the event this informatio n is protected by the Federal Confidentiality of Alcohol and Drug Abuse Patient Records regulations: The Federal rules restrict any use of the information to criminally investigate or prosecute any alcohol or drug abuse patient.[facility] the event this information is protected by the Federal Confidentiality of Alcohol and Drug Abuse Patient Records regulations: The Federal rules restrict any use of the information to criminally investigate or prosecute any alcohol or drug abuse patient.[facility] the event this information is protected by the Federal Confidentiality of Alcohol and Drug Abuse Patient Records regulations: The Federal rules restrict any use of the information to criminally investigate or prosecute any alcohol or drug abuse patient.[facility] the event this information is protected by the Federal Confidentiality of Alcohol and Drug Abuse Patient Records regulations: The Federal rules restrict any use of the information to criminally investigate or prosecute any alcohol or drug abuse patient.[facility] the event this information is protected by the Federal Confidentiality of Alcohol and Drug Abuse Patient Records regulations: The Federal rules restrict any use of the information to criminally investigate or prosecute any alcohol or drug abuse patient.[facility] the event this information is protected by the Federal Confidentiality of Alcohol and Drug Abuse Patient Records regulations: The Federal rules restrict any use of the information to criminally investigate or prosecute any alcohol or drug abuse patient.[facility] the event this information is protected by the Federal Confidentiality of Alcohol and Drug Abuse Patient Records regulations: The Federal rules restrict any use of the information to criminally investigate or prosecute any alcohol or drug abuse patient.[facility] the event this information is protected by the Federal Confidentiality of Alcohol and Drug Abuse Patient Records regulations: The Federal rules restrict any use of the information to criminally investigate or prosecute any alcohol or drug abuse patient.[facility] the event this information is protected by the Federal Confidentiality of Alcohol and Drug Abuse Patient Records regulations: The Federal rules restrict any use of the information to criminally investigate or prosecute any alcohol or drug abuse patient.[facility] the event this information is protected by the Federal Confidentiality of Alcohol and Drug Abuse Patient Records regulations: The Federal rules restrict any use of the information to criminally investigate or prosecute any alcohol or drug abuse patient.[facility] the event this information is protected by the Federal Confidentiality of Alcohol and Drug Abuse Patient Records regulations: The Federal rules restrict any use of the information to criminally investigate or prosecute any alcohol or drug abuse patient.[facility] the event this information is protected by the Federal Confidentiality of Alcohol and Drug Abuse Patient Records regulations: The Federal rules restrict any use of the information to criminally investigate or prosecute any alcohol or drug abuse patient.[facility] the event this information is protected by the Federal Confidentiality of Alcohol and Drug Abuse Patient Records regulations: The Federal rules restrict any use of the information to criminally investigate or prosecute any alcohol or drug abuse patient.[facility] the event this information is protected by the Federal Confidentiality of Alcohol and Drug Abuse Patient Records regulations: The Federal rules restrict any use of the information to criminally investigate or prosecute any alcohol or drug abuse patient.[facility] the event this information is protected by the Federal Confidentiality of Alcohol and Drug Abuse Patient Records regulations: The Federal rules restrict any use of the information to criminally investigate or prosecute any alcohol or drug abuse patient.[facility] Center[facility] the event this information is protected by the Federal Confidentiality of Alcohol and Drug Abuse Patient Records regulations: The Federal rules restrict any use of the information to criminally investigate or prosecute any alcohol or drug abuse patient.[facility] Center[facility] the event this information is protected by the Federal Confidentiality of Alcohol and Drug Abuse Patient Records regulations: The Federal rules restrict any use of the information to criminally investigate or prosecute any alcohol or drug abuse patient.[facility] Center[facility] the event this information is protected by the Federal Confidentiality of Alcohol and Drug Abuse Patient Records regulations: The Federal rules restrict any use of the information to criminally investigate or prosecute any alcohol or drug abuse patient.[facility] Reason for Visit (unrecogniz ed section and content) Reason Onset Date Comments Refill Request 04/10/2022 Reason Onset Date Comments Refill Request 07/07/2022 Reason Onset Date Comments Refill Request 08/07/2022 Reason Comments Sleep Problem Abdominal Pain Belching, churning Reason Comments Results Reason Onset Date Comments Refill Request 01/12/2023 Reason Comments lower back pain into right leg X 2 days Reason Comments Back Pain UC follow up. No imp rovement. Finished prednisone. Reason Comments Edema Redness, swelling, w armth, painful to touch x 1 week [facility] on [facility] associate Reason Comments Radiology CT Specialty Diagnoses / Procedures Referred By Armando t Referred To Contact CT IMAGING Diagnoses Atherosclerosis of aorta (HCC) Procedures CTA ABD/PEL W IVCON CT ANGIO ABD&PLVIS CNTRST MTRL W/WO CNTRST Radha Bob PA-C [address] [place] [address] [address] [facility] [place] [id number] Referral ID Status Reason Start Date Expiration Date V isits Requested Visits Authorized [id number] Closed Auto-Generate d Referral 04/30/2023 07/29/2023 1 1 Reason Onset Date Comments Refill Request 06/18/2023 Reason Comments 6 Month Exam Reason Onset Date Comments Refill Request 07/10/2023 Care Teams (unrecognized sec tion and content) Last Turner Relationship Specialty Start Date End Date Radha Durbin PA-C [address] [place], [place] [id number] PCP - General Family Medicine 09/20/21 Last Turner Relationship Specialty Start Date End Date Radha Durbin PA-C [address] [place], [place] [id number] PCP - General Family Medicine 09/20/21 Last Turner Relationship Specialty Start Date End Date Radha Durbin PA-C [address] [place], [place] [id number] PCP - General Family Medicine 09/20/21 Last Turner Relationship Specialty Start Date End Date Radha Durbin PA-C [address] [place] [address] PCP - General Family Medicine 09/20/21 Last Turner Relationship Specialty Start Date End Date Radha Durbin PA-C [address] [place] [address] PCP - General Family Medicine 09/20/21 Last Turner Relationship Specialty Start Date End Date Radha Durbin PA-C [address] [place] [address] PCP - General Family Medicine 09/20/21 Last Turner Relationship Specialty Start Date End Date Radha Durbin PA-C [address] [place] [address] PCP - General Family Medicine 09/20/21 Last Turner Relationship Specialty Start Date End Date Radha Durbin PA-C [address] [place] [address] PCP - General Family Medicine 09/20/21 Last Turner Relationship Specialty Start Date End Date Radha Durbin PA-C [address] [place] [address] PCP - General Family Medicine 09/20/21 Last Turner Relationship Specialty Start Date End Date Radha Durbin PA-C [address] [place] [address] PCP - General Family Medicine 09/20/21 Last Turner Relationship Specialty Start Date End Date Radha Durbin PA-C [address] [place], [place] [id number] PCP - General Family Medicine 09/20/21 Last Turner Relationship Specialty Start Date End Date Radha Durb[facility] PA-C [address] [facility] [place] [address] PCP - General Family Medicine 09/20/21 Last Turner Relationship Specialty Start Date End Date Radha Durbin PA-C [address] [facility], [place] [id number] PCP - General Family Medicine 09/20/21 Last Turner Relationship Specialty Start Date End Date Radha Durbin PA-C [address] [facility], [place] [id number] PCP - General [facility] 09/20/21 Last Turner Relationship Specialty Start Date End Date Radha Durbin PA-C [address] [facility], [place] [id number] PCP - General Family Medicine 09/20/21 (unrecognized sect ion and content) No Status Records Found INFORMATION SOURCE (unrecogn ized section and content) FOR RECORDS PERTAINING TO PATIENTS WHO ARE OR HAVE BEEN ENROLLED IN A CHEMICAL DEPENDENCY/SUBSTANCEABUSE PROGRAM, SOME INFORMATION MAY BE OMITTED. This clinical summary was aggregated from multiple sources. Caution should be exercised in using it in the provision of clinical care. This summary normalizes information from multiple sources, and as a consequence, information in this document may materially change the coding, format and clinical context of patient data. In addition, data may be omitted in some cases. CLINICAL DECISIONS SHOULD BE BASED ON THE PRIMARY CLINICAL RECORDS. [employer] [facility]. provides no warranty or guarantee of the accuracy or completeness of information in this document.
[2023-08-02] VITALS (14 sets, daily range): BP systolic 107–127; BP diastolic 51–64; PULSE 58–72; RESP 16–22; TEMP 36.3–36.8; O2SAT 91–97; BMI 22.2
[2023-08-02] MEDS: Ipratropium/Albuterol Sulfate 3 ML AMPUL.NEB INHALATION ×5 (02:35→20:01)
[2023-08-02] MEDS: busPIRone 5 MG Tablet PO ×3 (04:50→20:08)
[2023-08-02 07:51] LABS: Absolute Lymphocyte Count 0.43 X10^3/uL (0.83-4.51); Basophil# 0.01 X10^3/uL; Basophil% 0.1 % (0-1); Hematocrit 39.5 % (40-54); Hemoglobin 13.3 g/dL (13.0-16.5); Lymphocyte # 0.43 X10^3/ul (0.83-4.51); Lymphocyte % 5.4 % (19-41); Mean Corp Hgb Conc 33.7 g/dL (32-36); Mean Corpuscular Hgb 30.3 pg (27.0-32.0); Mean Platelet Vol. 11.5 fl (6.2-12.0); Monocyte# 0.46 X10^3/uL; Monocyte% 5.8 % (0-10); NRBC Flagged by Analyzer 0 % (0-5); Neutrophil % 88.2 % (47-70); POSITIVE DIFFERENTIAL YES; Platelet Count 166 K/mm3 (150-450); RBC Distribution Width SD 45.1 fl (35.1-43.9); Red Blood Count 4.39 M/mm3 (4.6-6.2); White Blood Count 7.9 K/mm3 (4.4-11.0)
[2023-08-02 07:53] LABS: Differential Indicated SCAN CRITERIA MET
[2023-08-02 08:05] LABS: Anion Gap 8 (5-15); BUN 16 mg/dL (7-18); BUN/Creat Ratio 18.2 RATIO (10-20); Chloride 107 mmol/L (98-107); Creatinine, Serum 0.88 mg/dL (0.70-1.30); EST Glomerular Filtration Rate 87 mL/min (>60); Est Glom Filt Rate - Afr Amer 106 mL/min (>60); Estimated Creatinine Clearance 61.11 ml/min; Glucose 163 mg/dL (74-106); Potassium 3.4 mmol/L (3.5-5.1); Sodium Level 140 mmol/L (136-145)
[2023-08-02] MEDS: Azithromycin 500 MG in Dextrose 5%-Water (250mL Bag) 250 ML 250 MG IV (09:07)
[2023-08-02] MEDS: Citalopram 20 MG Tablet PO (09:11)
[2023-08-02] MEDS: Pantoprazole Sodium 40 MG Tablet PO (09:11)
[2023-08-02] MEDS: guaiFENesin 1,200 MG Tablet 1200 MG PO ×2 (09:11→20:08)
[2023-08-02] MEDS: Finasteride 5 MG Tablet PO (09:11)
[2023-08-02] MEDS: amLODIPine 10 MG Tablet PO (09:11)
[2023-08-02] MEDS: Metoprolol(XL)Succ 25 MG Tablet PO (09:11)
[2023-08-02] MEDS: Tamsulosin HCl 0.4 MG Capsule 0.400000000000000022 MG PO (09:11)
[2023-08-02] MEDS: Clopidogrel Bisulfate 75 MG Tablet PO (09:11)
[2023-08-02] MEDS: Aspirin E.C. 81 MG Tablet PO (09:15)
[2023-08-02] MEDS: Enoxaparin 40 MG/0.4 ML Syringe SC (09:15)
[2023-08-02] MEDS: Ceftriaxone 2 GM in 0.9% Normal Saline (50mL MB+) 50 ML IV (10:18)
--- NOTE | 2023-08-02 10:55 | PN.HOSP_ITS ---
Reason for Visit Reason for Visit: Patient is an 87-year-old gentleman admitted with progressive shortness of breath. Imaging studies obtained on admission demonstrated mild interstitial opacities in the lungs. Admitted to a monitored bed for subsequent management Objective Data Objective Data Vital Signs: Vital Signs Temp Pulse Resp BP Pulse Ox O2 Del Method O2 Flow Rate 98.3 F 67 18 119/58 L 97 Nasal Cannula 5 08/02/23 09:05 08/02/23 10:50 08/02/23 10:50 08/02/23 09:05 08/02/23 10:50 08/02/23 10:50 08/02/23 10:50 FiO2 92 08/01/23 20:53 Oxygen Flow Rate (L/min) 5 Oxygen Delivery Method Nasal Cannula Weight: 70.4 kg Body Mass Index (BMI) 22.2 Intake & Output: Intake and Output for Last 24 Hours 07/31/23 08/01/23 08/02/23 23:59 23:59 23:59 Intake Total 305 / 545 785 / 785 Output Total 125 / 125 300 / 300 Balance 180 / 420 485 / 485 Lab / Micro Data 08/02/23 07:10 08/02/23 07:10 Labs: Laboratory Results - last 24 hr 08/01/23 13:10: WBC 9.2, RBC 4.78, Hgb 14.8, Hct 42.8, MCV 89.5, MCH 31.0, MCHC 34.6, RDW Std Deviation 46.8 H, RDW Coeff of Jihan 14.3, Plt Count 175, MPV 11.5, Immature Gran % (Auto) 0.900, Neut % (Auto) 82.0 H, Lymph % (Auto) 5.7 L, Zapata % (Auto) 10.3 H, Eos % (Auto) 0.9, Baso % (Auto) 0.2, Absolute Neuts (auto) 7.6, Absolute Lymphs (auto) 0.52 L, Nucleated RBC % 0, Differential Comment SCANNED, D-Dimer Quant (PE/DVT) 0.47, Sodium 136, Potassium 3.1 L, Chloride 103, Carbon Dioxide 26.0, Anion Gap 7, BUN 13, Creatinine 1.10, Estim Creat Clear Calc 50.69, Est GFR (MDRD) Af Amer 82, Est GFR (MDRD) Non-Af 68, BUN/Creatinine Ratio 11.8, Glucose 117 H, Calcium 8.8, Troponin I High Sens 8, B-Natriuretic Peptide 198.3 H, Procalcitonin 0.07 08/02/23 07:10: WBC 7.9, RBC 4.39 L, Hgb 13.3, Hct 39.5 L, MCV 90.0, MCH 30.3, MCHC 33.7, RDW Std Deviation 45.1 H, RDW Coeff of Jihan 14.0, Plt Count 166, MPV 11.5, Immature Gran % (Auto) 0.500, Neut % (Auto) 88.2 H, Lymph % (Auto) 5.4 L, Zapata % (Auto) 5.8, Eos % (Auto) 0.0, Baso % (Auto) 0.1, Absolute Neuts (auto) 7.0, Absolute Lymphs (auto) 0.43 L, Nucleated RBC % 0, Differential Comment COMMENT, Sodium 140, Potassium 3.4 L, Chloride 107, Carbon Dioxide 25.0, Anion Gap 8, BUN 16, Creatinine 0.88, Estim Creat Clear Calc 61.11, Est GFR (MDRD) Af Amer 106, Est GFR (MDRD) Non-Af 87, BUN/Creatinine Ratio 18.2, Glucose 163 H, Calcium 9.0, Magnesium 2.0 Micro: Microbiology 08/01/23 21:50 Mucosa - Nasopharyngeal Coronavirus COVID-19 PCR - Final 08/01/23 21:50 Mucosa - Nasopharyngeal Respiratory Panel (PCR) - Final 08/01/23 13:50 Nasal Secretion SARS-CoV-2 & FLU Antigen (Rapid) - Final Radiography Diagnostic Testing: Radiology Impression Chest X-Ray 08/01/23 13:55 IMPRESSION: Mild interstitial opacities in the lungs, which may be chronic or inflammatory. Electronically Signed: Demi Briseno MD at 15:00 EST , Physical Exam Narrative GENERAL: cooperative HEENT: Atraumatic; normocephalic EYES; Anicteric, Normal Conjunctiva NECK; supple, normal thyroid, RESPIRATORY: Diminished to auscultation CARDIOVASCULAR: Regular S1 S2, GI: soft, normoactive bowel sounds, : No Renal angle tenderness; EXTREMITIES: No edema, no clubbing, MUSCULOSKELETAL: no muscle wasting NEURO: Awake; no lateralizing signs. SKIN: No Rash PSYCH; Flat affect Assessment & Plan Assessment/Plan (1) Hypoxia: (2) Pneumonia: PLAN: Plan Patient is an 87-year-old gentleman admitted with progressive shortness of breath. Imaging studies obtained on admission demonstrated mild interstitial opacities in the lungs. Admitted to a monitored bed for subsequent management 1. Acute hypoxia ? Secondary to pneumonia with suspected atypical organisms. Patient acute viral respiratory panel came back unremarkable. Patient started on Rocephin as well as azithromycin in addition to supplemental oxygen and incentive spirometry and flutter valve 2. Coronary artery disease ? With previous history of PCI patient is on recommended medications including dual antiplatelet therapy statin and beta-blockers 3. Hypokalemia -Corrected per protocol 4. Hypertension - Blood pressure controlled, home medications continued with dose adjustment as needed 5. Dyslipidemia -Patient is on statin therapy, continued at home dose 6. BPH with lower urinary obstruction - Patient treated with finasteride 7. GERD -Continue PPI 8. Depression/anxiety -Continue trazodone, citalopram, BuSpar 9. DVT prophylaxis - On enoxaparin Time spent in the patient's overall evaluation,decision-making process, review of diagnostic data, adjustment of management, discussion with other providers, nursing nursing and ancillary staff involved in patient's care documentation, 50 Minutes Charges/Coding Visit Charges Inpatient E&M: [id number] [place] [id number]
--- NOTE | 2023-08-02 11:50 | CASEMGMT ---
RN CM Face to Face with patient for initial transition planning/care coordination assessment. RN CM introduced self and role at [facility]. Patient lying in bed, alert and oriented. Patient willing to participate in assessment and is able to answer all questions appropriately. Care providers, pharmacy, and demographics verified. Patient wishes to discharge home, denies need for home health at this time. Patient states he has no further needs or concerns at this time. CM to follow for discharge planning needs that may arise. PCP: Ramakrishna PORTAL ADMINISTRATOR Specialists: none Preferred Pharmacy: [facility] Insurance: [employer] Prescription Benefit: yes Living Will/HPOA: yes, daughter Marie Payne LNOK: daughter, son Living Arrangements: Patient lives alone in a single story home with 3 steps and railing to enter. Patient is independent at home. Transportation: self, daugther DME/HHC: Patient has shower chair, raised toilet, grab bars and walker at home. Will monitor for home oxygen, prefers [employer]. No previous HHC Or SNF Disposition Plan: Patient to discharge home with family support and follow-up plans in place. Doris HERNANDES, RN, CM
[2023-08-02] MEDS: Potassium Chloride Oral Tablet 20 MEQ PO ×2 (15:34→17:40)
[2023-08-02] MEDS: Ensure Plus High Protein 120 ML LIQUID PO ×3 (15:34→20:09)
[2023-08-02] MEDS: Atorvastatin Calcium 10 MG Tablet PO (20:08)
[2023-08-02] MEDS: MELATONIN 3 MG TABLET PO (20:08)
[2023-08-02] MEDS: traZODone 50 MG Tablet PO (20:08)
[2023-08-03] VITALS (14 sets, daily range): BP systolic 128–152; BP diastolic 60–72; PULSE 58–77; RESP 15–20; TEMP 36.6–37.1; O2SAT 88–99; BMI 22.2
[2023-08-03] MEDS: busPIRone 5 MG Tablet PO ×3 (06:13→20:17)
[2023-08-03] MEDS: Ipratropium/Albuterol Sulfate 3 ML AMPUL.NEB INHALATION ×4 (07:07→19:55)
--- NOTE | 2023-08-03 08:02 | PCM.PN.HOSP ---
Reason for Visit Reason for Visit: Diagnoses Pneumonia, unspecified organism (08/01/23) Hypoxemia (08/01/23) Subjective Subjective Patient seen remains on supplemental oxygen currently at 4 L flow per minute. Patient also reports having experienced loose bowel movement. Patient placed under enteric precaution as well as stool for C. difficile has been sent Objective Data Objective Data Vital Signs: Vital Signs Temp Pulse Resp BP Pulse Ox O2 Del Method O2 Flow Rate 97.8 F 58 L 18 150/72 H 96 Nasal Cannula 3 08/03/23 06:11 08/03/23 06:11 08/03/23 06:11 08/03/23 06:11 08/03/23 06:11 08/03/23 06:11 08/03/23 06:11 FiO2 92 08/01/23 20:53 Oxygen Flow Rate (L/min) 3 Oxygen Delivery Method Nasal Cannula Weight: 70.4 kg Body Mass Index (BMI) 22.2 Intake & Output: Intake and Output for Last 24 Hours 08/01/23 08/02/23 08/03/23 23:59 23:59 23:59 Intake Total 305 / 545 1505 / 1505 Output Total 125 / 125 400 / 400 Balance 180 / 420 1105 / 1105 Lab / Micro Data 08/02/23 07:10 08/02/23 07:10 Labs: Laboratory Results - last 24 hr 08/02/23 07:10: Differential Comment COMMENT, Sodium 140, Potassium 3.4 L, Chloride 107, Carbon Dioxide 25.0, Anion Gap 8, BUN 16, Creatinine 0.88, Estim Creat Clear Calc 61.11, Est GFR (MDRD) Af Amer 106, Est GFR (MDRD) Non-Af 87, BUN/Creatinine Ratio 18.2, Glucose 163 H, Calcium 9.0, Magnesium 2.0 Micro: Microbiology 08/02/23 11:30 Urine, Clean Catch Legionella Antigen - Final 08/02/23 11:30 Urine, Clean Catch Streptococcus pneumoniae Antigen (M - Final 08/01/23 21:50 Mucosa - Nasopharyngeal Coronavirus COVID-19 PCR - Final 08/01/23 21:50 Mucosa - Nasopharyngeal Respiratory Panel (PCR) - Final 08/01/23 13:50 Nasal Secretion SARS-CoV-2 & FLU Antigen (Rapid) - Final Radiography Diagnostic Testing: Radiology Impression Echocardiogram 08/01/23 20:23 Interpretation Summary Mild concentric left ventricular hypertrophy. The left ventricular ejection fraction is 65 %. Diastolic function is indeterminate. The left atrium is moderately enlarged. Moderate (2+) tricuspid valve insufficiency. Right ventricular systolic pressure estimated to be 75 mmHg. Ordering Physician: Jasmine Tan Performed By: Ubaldo Tobias RCS Physical Exam Narrative GENERAL: cooperative HEENT: Atraumatic; normocephalic EYES; Anicteric, Normal Conjunctiva NECK; supple, normal thyroid, RESPIRATORY: Diminished to auscultation CARDIOVASCULAR: Regular S1 S2, GI: soft, normoactive bowel sounds, : No Renal angle tenderness; EXTREMITIES: No edema, no clubbing, MUSCULOSKELETAL: no muscle wasting NEURO: Awake; no lateralizing signs. SKIN: No Rash PSYCH; Flat affect Assessment & Plan Assessment/Plan (1) Hypoxia: (2) Pneumonia: PLAN: Plan Patient is an 87-year-old gentleman admitted with progressive shortness of breath. Imaging studies obtained on admission demonstrated mild interstitial opacities in the lungs. Admitted to a monitored bed for subsequent management 1. Acute hypoxia ? Secondary to pneumonia with suspected atypical organisms. Patient acute viral respiratory panel came back unremarkable. Patient started on Rocephin as well as azithromycin in addition to supplemental oxygen and incentive spirometry and flutter valve ? 08/03/2023; patient remains on supplemental oxygen currently 4 L flow per minute 2. Acute diarrhea ? Possibly related to antibiotic use patient has however been placed on enteric precautions whiles C. difficile has been ruled out 3. Coronary artery disease ? With previous history of PCI patient is on recommended medications including dual antiplatelet therapy statin and beta-blockers 4. Hypokalemia -Corrected per protocol 5. Hypertension - Blood pressure controlled, home medications continued with dose adjustment as needed 6. Dyslipidemia -Patient is on statin therapy, continued at home dose 7. BPH with lower urinary obstruction - Patient treated with finasteride 8. GERD -Continue PPI 9. Depression/anxiety -Continue trazodone, citalopram, BuSpar 10. DVT prophylaxis - On enoxaparin Time spent in the patient's overall evaluation,decision-making process, review of diagnostic data, adjustment of management, discussion with other providers, nursing nursing and ancillary staff involved in patient's care documentation, 50 Minutes Charges/Coding Visit Charges Inpatient E&M: [id number] [facility] L3
[2023-08-03] MEDS: Tamsulosin HCl 0.4 MG Capsule 0.400000000000000022 MG PO (08:29)
[2023-08-03] MEDS: guaiFENesin 1,200 MG Tablet 1200 MG PO ×2 (08:29→20:17)
[2023-08-03] MEDS: Pantoprazole Sodium 40 MG Tablet PO (08:29)
[2023-08-03] MEDS: Metoprolol(XL)Succ 25 MG Tablet PO (08:29)
[2023-08-03] MEDS: Clopidogrel Bisulfate 75 MG Tablet PO (08:29)
[2023-08-03] MEDS: amLODIPine 10 MG Tablet PO (08:29)
[2023-08-03] MEDS: Citalopram 20 MG Tablet PO (08:29)
[2023-08-03] MEDS: Finasteride 5 MG Tablet PO (08:30)
[2023-08-03] MEDS: Aspirin E.C. 81 MG Tablet PO (08:30)
[2023-08-03] MEDS: Enoxaparin 40 MG/0.4 ML Syringe SC (08:30)
[2023-08-03] MEDS: Potassium Chloride Oral Tablet 20 MEQ PO ×2 (08:30→17:29)
[2023-08-03] MEDS: Ensure Plus High Protein 120 ML LIQUID PO ×4 (08:35→20:17)
[2023-08-03] MEDS: Ceftriaxone 2 GM in 0.9% Normal Saline (50mL MB+) 50 ML IV (08:36)
[2023-08-03] MEDS: 0.9% Saline Lock 10 ML Syringe IV (08:36)
[2023-08-03] MEDS: Azithromycin 500 MG in Dextrose 5%-Water (250mL Bag) 250 ML 250 MG IV (08:36)
[2023-08-03 11:02] LABS: Hematocrit 40.2 % (40-54); Hemoglobin 13.1 g/dL (13.0-16.5); Mean Corp Hgb Conc 32.6 g/dL (32-36); Mean Corpuscular Hgb 30.1 pg (27.0-32.0); Mean Corpuscular Volume 92.4 fL (80-94); Mean Platelet Vol. 11.2 fl (6.2-12.0); Platelet Count 178 K/mm3 (150-450); RBC Distribution Width CV 14.5 % (11.6-14.6); RBC Distribution Width SD 48.4 fl (35.1-43.9); Red Blood Count 4.35 M/mm3 (4.6-6.2); White Blood Count 9.4 K/mm3 (4.4-11.0)
[2023-08-03 11:42] LABS: Phosphorus 2.1 mg/dL (2.5-4.9)
[2023-08-03 11:43] LABS: ALB/GLOB Ratio 1.2 RATIO (0.9-2.4); AST(SGOT) 10 U/L (15-37); Alanine Aminotransfer ALT/SGPT 18 U/L (16-61); Alkaline Phosphatase 46 U/L (45-117); Anion Gap 7 (5-15); BUN 21 mg/dL (7-18); BUN/Creat Ratio 23.6 RATIO (10-20); Calcium,Total 8.3 mg/dL (8.5-10.1); Chloride 114 mmol/L (98-107); Creatinine, Serum 0.89 mg/dL (0.70-1.30); EST Glomerular Filtration Rate 86 mL/min (>60); Est Glom Filt Rate - Afr Amer 104 mL/min (>60); Estimated Creatinine Clearance 60.42 ml/min; Globulin 2.6 g/dL (2.2-4.2); Glucose 146 mg/dL (74-106); Magnesium 1.9 mg/dL (1.6-2.6); Potassium 3.5 mmol/L (3.5-5.1); Protein, Total 5.6 g/dL (6.4-8.2); Sodium Level 145 mmol/L (136-145)
[2023-08-03] MEDS: Loperamide 2 MG Capsule 4 MG PO (14:28)
[2023-08-03] MEDS: Atorvastatin Calcium 10 MG Tablet PO (20:17)
[2023-08-03] MEDS: traZODone 50 MG Tablet PO (20:17)
[2023-08-04] VITALS (7 sets, daily range): BP systolic 129–138; BP diastolic 62–67; PULSE 66–75; RESP 16; TEMP 36.2–37.1; O2SAT 84–98; BMI 22.6
[2023-08-04] MEDS: busPIRone 5 MG Tablet PO ×2 (05:25→12:48)
[2023-08-04 07:08] LABS: Absolute Lymphocyte Count 0.71 X10^3/uL (0.83-4.51); Absolute Neutrophil Count 6.1 X10^3/uL (2.0-7.7); Basophil# 0.03 X10^3/uL; Basophil% 0.4 % (0-1); Eosinophil# 0.33 X10^3/uL; Eosinophils% 4.1 % (0-5); Hematocrit 41.7 % (40-54); Hemoglobin 13.4 g/dL (13.0-16.5); Lymphocyte # 0.71 X10^3/ul (0.83-4.51); Lymphocyte % 8.9 % (19-41); Mean Corp Hgb Conc 32.1 g/dL (32-36); Mean Corpuscular Hgb 29.6 pg (27.0-32.0); Mean Corpuscular Volume 92.3 fL (80-94); Mean Platelet Vol. 10.7 fl (6.2-12.0); Monocyte# 0.75 X10^3/uL; Monocyte% 9.4 % (0-10); NRBC Flagged by Analyzer 0 % (0-5); Neutrophil # 6.08 X10^3/uL (2.7-7.7); Neutrophil % 76.4 % (47-70); Platelet Count 186 K/mm3 (150-450); RBC Distribution Width CV 14.6 % (11.6-14.6); RBC Distribution Width SD 49.3 fl (35.1-43.9); Red Blood Count 4.52 M/mm3 (4.6-6.2)
[2023-08-04 07:33] LABS: Anion Gap 3 (5-15); BUN 18 mg/dL (7-18); BUN/Creat Ratio 22.1 RATIO (10-20); Calcium,Total 8.9 mg/dL (8.5-10.1); Chloride 113 mmol/L (98-107); Creatinine, Serum 0.82 mg/dL (0.70-1.30); EST Glomerular Filtration Rate 95 mL/min (>60); Est Glom Filt Rate - Afr Amer 115 mL/min (>60); Estimated Creatinine Clearance 66.51 ml/min; Glucose 96 mg/dL (74-106); Potassium 4.1 mmol/L (3.5-5.1); Sodium Level 141 mmol/L (136-145)
--- NOTE | 2023-08-04 08:05 | PN.HOSP_ITS ---
Reason for Visit Reason for Visit: Diagnoses Pneumonia, unspecified organism (08/01/23) Hypoxemia (08/01/23) Subjective Subjective Patient seen, continues to experience of loose bowel movement stool for C. difficile came back negative patient treated symptomatically with Imodium. His oxygen requirement continues to go down. Patient will however be assessed for home oxygen prior to being discharged Objective Data Objective Data Vital Signs: Vital Signs Temp Pulse Resp BP Pulse Ox O2 Del Method O2 Flow Rate 98.8 F 66 16 129/67 H 94 Nasal Cannula 4 08/04/23 04:36 08/04/23 04:36 08/04/23 04:36 08/04/23 04:36 08/04/23 04:36 08/04/23 04:36 08/04/23 04:36 FiO2 92 08/01/23 20:53 Oxygen Flow Rate (L/min) 4 Oxygen Delivery Method Nasal Cannula Weight: 71.4 kg Body Mass Index (BMI) 22.6 Intake & Output: Intake and Output for Last 24 Hours 08/02/23 08/03/23 08/04/23 23:59 23:59 23:59 Intake Total 1505 / 1505 305 / 545 240 / 240 Output Total 400 / 400 300 / 300 Balance 1105 / 1105 305 / 245 -60 / -60 Lab / Micro Data 08/04/23 06:58 08/04/23 06:58 Labs: Laboratory Results - last 24 hr 08/03/23 10:50: WBC 9.4, RBC 4.35 L, Hgb 13.1, Hct 40.2, MCV 92.4, MCH 30.1, MCHC 32.6, RDW Std Deviation 48.4 H, RDW Coeff of Jihan 14.5, Plt Count 178, MPV 11.2, Sodium 145, Potassium 3.5, Chloride 114 H, Carbon Dioxide 24.0, Anion Gap 7, BUN 21 H, Creatinine 0.89, Estim Creat Clear Calc 60.42, Est GFR (MDRD) Af Amer 104, Est GFR (MDRD) Non-Af 86, BUN/Creatinine Ratio 23.6 H, Glucose 146 H, Calcium 8.3 L, Phosphorus 2.1 L, Magnesium 1.9, Total Bilirubin 0.30, AST 10 L, ALT 18, Alkaline Phosphatase 46, Total Protein 5.6 L, Albumin 3.0 L, Globulin 2.6, Albumin/Globulin Ratio 1.2 08/04/23 06:58: WBC 8.0, RBC 4.52 L, Hgb 13.4, Hct 41.7, MCV 92.3, MCH 29.6, MCHC 32.1, RDW Std Deviation 49.3 H, RDW Coeff of Jihan 14.6, Plt Count 186, MPV 10.7, Immature Gran % (Auto) 0.800, Neut % (Auto) 76.4 H, Lymph % (Auto) 8.9 L, [place] % (Auto) 9.4, Eos % (Auto) 4.1, Baso % (Auto) 0.4, Absolute Neuts (auto) 6.1, Absolute Lymphs (auto) 0.71 L, Nucleated RBC % 0, Sodium 141, Potassium 4.1, Chloride 113 H, Carbon Dioxide 25.0, Anion Gap 3 L, BUN 18, Creatinine 0.82, Estim Creat Clear Calc 66.51, Est GFR (MDRD) Af Amer 115, Est GFR (MDRD) Non-Af 95, BUN/Creatinine Ratio 22.1 H, Glucose 96, Calcium 8.9 Micro: Microbiology 08/03/23 12:15 Stool Clostridioides difficile (PCR) - Final 08/02/23 11:30 Urine, Clean Catch Legionella Antigen - Final 08/02/23 11:30 Urine, Clean Catch Streptococcus pneumoniae Antigen (M - Final 08/01/23 21:50 Mucosa - Nasopharyngeal Coronavirus COVID-19 PCR - Final 08/01/23 21:50 Mucosa - Nasopharyngeal Respiratory Panel (PCR) - Final 08/01/23 13:50 Nasal Secretion SARS-CoV-2 & FLU Antigen (Rapid) - Final Physical Exam Narrative GENERAL: cooperative HEENT: Atraumatic; normocephalic EYES; Anicteric, Normal Conjunctiva NECK; supple, normal thyroid, RESPIRATORY: Diminished to auscultation CARDIOVASCULAR: Regular S1 S2, GI: soft, normoactive bowel sounds, : No Renal angle tenderness; EXTREMITIES: No edema, no clubbing, MUSCULOSKELETAL: no muscle wasting NEURO: Awake; no lateralizing signs. SKIN: No Rash PSYCH; Flat affect Assessment & Plan Assessment/Plan (1) Hypoxia: (2) Pneumonia: PLAN: Plan Patient is an 87-year-old gentleman admitted with progressive shortness of breath. Imaging studies obtained on admission demonstrated mild interstitial opacities in the lungs. Admitted to a monitored bed for subsequent management 1. Acute hypoxia ? Secondary to pneumonia with suspected atypical organisms. Patient acute viral respiratory panel came back unremarkable. Patient started on Rocephin as well as azithromycin in addition to supplemental oxygen and incentive spirometry and flutter valve ? 08/03/2023; patient remains on supplemental oxygen currently 4 L flow per minute 2. Acute diarrhea ? Possibly related to antibiotic use patient has however been placed on enteric precautions whiles C. difficile has been ruled out ? 08/04/2023; stool studies came back negative for C. difficile 3. Coronary artery disease ? With previous history of PCI patient is on recommended medications including dual antiplatelet therapy statin and beta-blockers 4. Hypokalemia -Corrected per protocol 5. Hypertension - Blood pressure controlled, home medications continued with dose adjustment as needed 6. Dyslipidemia -Patient is on statin therapy, continued at home dose 7. BPH with lower urinary obstruction - Patient treated with finasteride 8. GERD -Continue PPI 9. Depression/anxiety -Continue trazodone, citalopram, BuSpar 10. DVT prophylaxis - On enoxaparin Time spent in the patient's overall evaluation,decision-making process, review o f diagnostic data, adjustment of management, discussion with other providers, nursing nursing and ancillary staff involved in patient's care documentation, 35 Minutes Charges/Coding Visit Charges Inpatient E&M: 30134 Subs Hosp L2
[2023-08-04] MEDS: Ceftriaxone 2 GM in 0.9% Normal Saline (50mL MB+) 50 ML IV (10:01)
[2023-08-04] MEDS: Finasteride 5 MG Tablet PO (10:11)
[2023-08-04] MEDS: amLODIPine 10 MG Tablet PO (10:11)
[2023-08-04] MEDS: guaiFENesin 1,200 MG Tablet 1200 MG PO (10:12)
[2023-08-04] MEDS: Clopidogrel Bisulfate 75 MG Tablet PO (10:12)
[2023-08-04] MEDS: Metoprolol(XL)Succ 25 MG Tablet PO (10:12)
[2023-08-04] MEDS: Citalopram 20 MG Tablet PO (10:12)
[2023-08-04] MEDS: Potassium Chloride Oral Tablet 20 MEQ PO (10:12)
[2023-08-04] MEDS: Pantoprazole Sodium 40 MG Tablet PO (10:12)
[2023-08-04] MEDS: Aspirin E.C. 81 MG Tablet PO (10:12)
[2023-08-04] MEDS: Enoxaparin 40 MG/0.4 ML Syringe SC (10:12)
[2023-08-04] MEDS: Ensure Plus High Protein 120 ML LIQUID PO ×2 (10:13→12:48)
[2023-08-04] MEDS: Tamsulosin HCl 0.4 MG Capsule 0.400000000000000022 MG PO (10:13)
[2023-08-04] MEDS: Loperamide 2 MG Capsule 4 MG PO (10:52)
[2023-08-04] MEDS: 0.9% Saline Lock 10 ML Syringe IV (10:54)
[2023-08-04] MEDS: Azithromycin 500 MG in Dextrose 5%-Water (250mL Bag) 250 ML 250 MG IV (10:54)
[2023-08-04] MEDS: Ipratropium/Albuterol Sulfate 3 ML AMPUL.NEB INHALATION (10:58)
--- NOTE | 2023-08-04 11:14 | PCM.DC.SUM ---
Providers Date of Admission: 08/01/23 Date of Discharge: 08/04/23 Primary Care Physician: CHRISTINE Brown Reason For Visit: HYPOXIA Diagnosis Discharge Diagnosis (1) Hypoxia: Status: Acute Code(s): R09.02 - Hypoxemia (2) Pneumonia: Status: Acute Code(s): J18.9 - Pneumonia, unspecified organism Plan Patient is an 87-year-old gentleman admitted with progressive shortness of breath. Imaging studies obtained on admission demonstrated mild interstitial opacities in the lungs. Admitted to a monitored bed for subsequent management 1. Acute hypoxia ? Secondary to pneumonia with suspected atypical organisms. Patient acute viral respiratory panel came back unremarkable. Patient started on Rocephin as well as azithromycin in addition to supplemental oxygen and incentive spirometry and flutter valve ? 08/03/2023; patient remains on supplemental oxygen currently 4 L flow per minute 2. Acute diarrhea ? Possibly related to antibiotic use patient has however been placed on enteric precautions whiles C. difficile has been ruled out ? 08/04/2023; stool studies came back negative for C. difficile 3. Coronary artery disease ? With previous history of PCI patient is on recommended medications including dual antiplatelet therapy statin and beta-blockers 4. Hypokalemia -Corrected per protocol 5. Hypertension - Blood pressure controlled, home medications continued with dose adjustment as needed 6. Dyslipidemia -Patient is on statin therapy, continued at home dose 7. BPH with lower urinary obstruction - Patient treated with finasteride 8. GERD -Continue PPI 9. Depression/anxiety -Continue trazodone, citalopram, BuSpar 10. DVT prophylaxis - On enoxaparin Time spent in the patient's overall evaluation,decision-making process, review of diagnostic data, adjustment of management, discussion with other providers, nursing nursing and ancillary staff involved in patient's care documentation, 35 Minutes Medications at Discharge Home Medications citalopram 20 mg tablet 20 mg PO DAILY DEPRESSION 03/17/14 multivitamin 1 ea PO DAILY HEALTH MINENANCE 05/16/17 amlodipine 10 mg tablet 10 mg PO DAILY BLOOD PESSURE 09/04/19 tamsulosin 0.4 mg capsule 0.4 mg PO DAILY PROSTATE 09/04/19 niacin 500 mg capsule,extended release 500 mg PO DAILY SUPPLEMENT 09/16/19 ascorbic acid (vitamin C) 1,000 mg tablet 1,000 mg PO DAILY SUPPLEMENT 01/18/20 atorvastatin 10 mg tablet 10 mg PO DAILY CHOLESTEROL 08/25/20 clopidogrel 75 mg tablet 75 mg PO DAILY BLOOD THINNER 08/25/20 finasteride 5 mg tablet 5 mg PO DAILY PROSTATE 08/26/20 hydrochlorothiazide 25 mg tablet 25 mg PO DAILY BLOOD PRESSURE #90 tabs 09/20/20 aspirin 81 mg tablet,delayed release (Adult Aspirin Regimen) 81 mg PO DAILY HEART HEALTH 04/25/21 buspirone 5 mg tablet 5 mg PO TID 08/01/23 hydrocodone-acetaminophen 5-325mg 5mg-325mg 1 tab PO Q6H PRN PAIN 08/01/23 latanoprost 0.005 % eye drops 1 drp ophthalmic (eye) QHS GLAUCOMA 08/01/23 metoprolol succinate 25 mg tablet,extended release 24 hr 25 mg PO DAILY BLOOD PRESSURE 08/01/23 omeprazole 40 mg capsule,delayed release 40 mg PO DAILY ACID REFLUX 08/01/23 trazodone 50 mg tablet 50 mg PO QHS SLEEP 08/01/23 Lactobacillus acidophilus 1 billion cell capsule 1,000 mmu cells PO DAILY #30 caps 08/04/23 cefdinir 300 mg capsule 300 mg PO BID #10 caps 08/04/23 guaifenesin 1,200 mg tablet, extended release 12 hr (Mucus Relief ER) 1,200 mg PO BID #20 tabs 08/04/23 prednisone 20 mg tablet 20 mg PO BID #10 tabs 08/04/23 Physical Exam Narrative GENERAL: cooperative HEENT: Atraumatic; normocephalic EYES; Anicteric, Normal Conjunctiva NECK; supple, normal thyroid, RESPIRATORY: Diminished to auscultation CARDIOVASCULAR: Regular S1 S2, GI: soft, normoactive bowel sounds, : No Renal angle tenderness; EXTREMITIES: No edema, no clubbing, MUSCULOSKELETAL: no muscle wasting NEURO: Awake; no lateralizing signs. SKIN: No Rash PSYCH; Flat affect Weight / BMI Weight Weight: 71.4 kg Body Mass Index (BMI) 22.6 ABG / Lab / Microbiology Data 08/04/23 06:58 08/04/23 06:58 Laboratory: Laboratory Results - last 24 hr 08/03/23 10:50: Sodium 145, Potassium 3.5, Chloride 114 H, Carbon Dioxide 24.0, Anion Gap 7, BUN 21 H, Creatinine 0.89, Estim Creat Clear Calc 60.42, Est GFR (MDRD) Af Amer 104, Est GFR (MDRD) Non-Af 86, BUN/Creatinine Ratio 23.6 H, Glucose 146 H, Calcium 8.3 L, Phosphorus 2.1 L, Magnesium 1.9, Total Bilirubin 0.30, AST 10 L, ALT 18, Alkaline Phosphatase 46, Total Protein 5.6 L, Albumin 3.0 L, Globulin 2.6, Albumin/Globulin Ratio 1.2 08/04/23 06:58: WBC 8.0, RBC 4.52 L, Hgb 13.4, Hct 41.7, MCV 92.3, MCH 29.6, MCHC 32.1, RDW Std Deviation 49.3 H, RDW Coeff of Jihan 14.6, Plt Count 186, MPV 10.7, Immature Gran % (Auto) 0.800, Neut % (Auto) 76.4 H, Lymph % (Auto) 8.9 L, [place] % (Auto) 9.4, Eos % (Auto) 4.1, Baso % (Auto) 0.4, Absolute Neuts (auto) 6.1, Absolute Lymphs (auto) 0.71 L, Nucleated RBC % 0, Sodium 141, Potassium 4.1, Chloride 113 H, Carbon Dioxide 25.0, Anion Gap 3 L, BUN 18, Creatinine 0.82, Estim Creat Clear Calc 66.51, Est GFR (MDRD) Af Amer 115, Est GFR (MDRD) Non-Af 95, BUN/Creatinine Ratio 22.1 H, Glucose 96, Calcium 8.9 Microbiology: Microbiology 08/03/23 12:15 Stool Clostridioides difficile (PCR) - Final 08/02/23 11:30 Urine, Clean Catch Legionella Antigen - Final 08/02/23 11:30 Urine, Clean Catch Streptococcus pneumoniae Antigen (M - Final 08/01/23 21:50 Mucosa - Nasopharyngeal Coronavirus COVID-19 PCR - Final 08/01/23 21:50 Mucosa - Nasopharyngeal Respiratory Panel (PCR) - Final 08/01/23 13:50 Nasal Secretion SARS-CoV-2 & FLU Antigen (Rapid) - Final D/C Instructions Discharge Diet: No restrictions Discharge Activity: Return to Normal Activity Call your doctor if you observe: Fever of 101 or Higher, Shortness of breath, Fainting spells and Chest pain Meaningful Use Info Meaningful Use Diagnoses (Choose all that apply): None applicable Discharge Plan Admission Admit Date/Time: 08/01/23 18:03 Attending Provider: Jerrell Faith Primary Care Provider: Radha Durbin Consulting Providers: Jasmine Tan Discharge Orders/Prescriptions Prescriptions: New guaifenesin [Mucus Relief ER] 1,200 mg Tablet Extended Release 12hr 1,200 mg PO BID Qty: 20 0RF prednisone 20 mg tablet 20 mg PO BID Qty: 10 0RF cefdinir 300 mg capsule 300 mg PO BID Qty: 10 0RF Lactobacillus acidophilus 1 billion cell capsule 1,000 mmu cells PO DAILY Qty: 30 0RF Continued amlodipine 10 mg tablet 10 mg PO DAILY tamsulosin 0.4 mg capsule 0.4 mg PO DAILY niacin 500 mg capsule, extended release 500 mg PO DAILY aspirin [Adult Aspirin Regimen] 81 mg tablet,delayed release (DR/EC) 81 mg PO DAILY citalopram 20 MG tablet 20 mg PO DAILY multivitamin 1 EACH tablet 1 ea PO DAILY ascorbic acid (vitamin C) 1,000 MG tablet 1,000 mg PO DAILY atorvastatin 10 MG tablet 10 mg PO DAILY clopidogrel 75 MG tablet 75 mg PO DAILY finasteride 5 MG tablet 5 mg PO DAILY latanoprost 0.005 % drops 1 drp ophthalmic (eye) QHS Rx Instructions: INSTILL ONE DROP INTO BOTH EYES AT BEDTIME trazodone 50 mg tablet 50 mg PO QHS omeprazole 40 mg capsule,delayed release(DR/EC) 40 mg PO DAILY metoprolol succinate 25 mg tablet extended release 24 hr 25 mg PO DAILY buspirone 5 mg tablet 5 mg PO TID Patient Comments: PT STATES THEY NORMALLY TAKE ONE OF THESE ONCE A DAY ( OF 08-02-23) hydrocodone-acetaminophen 5-325 mg tablet 1 tab PO Q6H PRN (Reason: PAIN ) hydrochlorothiazide 25 mg tablet 25 mg PO DAILY Qty: 90 3RF Referrals / Follow Up: Radha Durbin PA [Primary Care Provider] - Within 1 Week Disposition Disposition (needs filled in before D/C Order can be placed): Home, Self Care Charges/Coding Visit Charges Inpatient E&M: 05554 Disch Hosp >30min
--- NOTE | 2023-08-04 13:03 | CASEMGMT ---
Noted not PT recommended for pt. Pt to dc home today.
== END 2023-08-04 14:05 | disposition home or self-care (01) | DRG 194 ==
LOC: ED 15:29 → PCU 16:09
PROVIDERS: Admitting Provider Internal Medicine; Emergency Provider Emergency Medicine; PCP Physician Assistant; Visit Provider Internal Medicine
DX: J18.9 Pneumonia, unspecified organism (principal); J44.0 Chronic obstructive pulmonary disease with (acute) lower respiratory infection; K52.1 Toxic gastroenteritis and colitis; N13.8 Other obstructive and reflux uropathy; I10 Essential (primary) hypertension; F32.A Depression, unspecified; E87.6 Hypokalemia; E78.5 Hyperlipidemia, unspecified; I25.10 Atherosclerotic heart disease of native coronary artery without angina pectoris; K21.9 Gastro-esophageal reflux disease without esophagitis; F41.9 Anxiety disorder, unspecified; Z95.820 Peripheral vascular angioplasty status with implants and grafts; T36.3X5A Adverse effect of macrolides, initial encounter; R09.02 Hypoxemia; N40.1 Benign prostatic hyperplasia with lower urinary tract symptoms; Z11.52 Encounter for screening for COVID-19; Z79.82 Long term (current) use of aspirin; Z79.02 Long term (current) use of antithrombotics/antiplatelets; Z79.899 Other long term (current) drug therapy; Z87.891 Personal history of nicotine dependence; Z86.16 Personal history of COVID-19; Z95.5 Presence of coronary angioplasty implant and graft
CPT/HCPCS: 36415; 71045; 80048; 80053; 83735; 83880; 84100; 84145; 84484; 85025; 85027; 85379; 87428; 87449; 87493; 87633; 87635; 93005; 93306; 94640; 94668; 97110; 97116; 97162; 97530; 99252; 99285; J7030; J7050; A4216; G0463

== ENCOUNTER 2024-02-09 09:39 | Emergency (ER) | payer MEDICARE, SELFPAY ==
[2019-09-08 13:16] VITALS: BMI 24.7
[2024-02-09] VITALS (10 sets, daily range): BP systolic 146–166; BP diastolic 61–83; PULSE 59–66; RESP 14–20; TEMP 36.1–36.6; O2SAT 88–100; BMI 22.7
--- NOTE | 2024-02-09 09:59 | EKG12_ITS ---
Test Reason : SOB Blood Pressure : / mmHG Vent. Rate : 062 BPM Atrial Rate : 062 BPM P-R Int : 136 ms QRS Dur : 098 ms QT Int : 442 ms P-R-T Axes : 032 -06 008 degrees QTc Int : 448 ms Normal sinus rhythm Normal ECG Confirmed by RITA MANUEL, YUAN ([id number]), editor magazine FARSHAD PANDYA ([id number]) on 02/13/2024 9:44:33 AM Referred By: AR Confirmed By:ABEL SALINAS MD
--- NOTE | 2024-02-09 10:51 | RAD_ITS ---
INDICATION: Shortness of breath EXAMINATION/TECHNIQUE: X-RAY - XR Chest 2 Views COMPARISON: August 01, 2023 FINDINGS: LINES/DEVICES: None. LUNGS: No new consolidation, edema or effusion. There are stable bilateral prominent chronic appearing interstitial markings. No pneumothorax. MEDIASTINUM AND CARDIOVASCULAR STRUCTURES: Cardiac silhouette not enlarged. Central airways and mediastinal contour are unremarkable. BONES AND SOFT TISSUES: There is a stable metallic density projecting over the right hemithorax. RAD/Chest PA and Lateral IMPRESSION: No radiographic evidence of acute cardiopulmonary disease. Electronically Signed: Yana Sampson MD at 11:25 EDT ,
--- NOTE | 2024-02-09 10:51 | ED.VIS.DYS ---
HPI History of Present Illness Chief Complaint: Shortness of Breath Informant: patient Narrative Narrative: Patient presents secondary to shortness of breath and weakness. Patient states symptoms have been ongoing for quite some time but he felt significant more short of breath this morning. He denies lightheadedness or dizziness. He denies vertigo. He denies chest pain or palpitations. He has not had cough or congestion. He does not feel as if he is wheezing. He denies nausea, vomiting, or diarrhea. He does have 1 cardiac stent as well as 2 vascular stents to his legs. He denies history of CHF. He has not noted peripheral swelling. [facility] Medical History COVID-19 virus detected (08/23/20) Anxiety and depression Chronic anemia Acute respiratory failure with hypoxia Hypoxia Pneumonia due to COVID-19 virus GI bleed (12/2019) Atherosclerosis of coronary artery of [place] heart without angina pectoris Peripheral vascular occlusive disease Hyperlipidemia Essential (primary) hypertension GERD (gastroesophageal reflux disease) BPH (benign prostatic hyperplasia) Anxiety Incontinence Diverticulosis Home Medications ?Medication ?Instructions ?Recorded ?Last Taken ?Type citalopram 20 mg tablet 20 mg PO DAILY DEPRESSION 03/17/14 08/01/23 History multivitamin 1 ea PO DAILY HEALTH MINENANCE 05/16/17 08/01/23 History amlodipine 10 mg tablet 10 mg PO DAILY BLOOD PESSURE 09/04/19 08/01/23 History tamsulosin 0.4 mg capsule 0.4 mg PO DAILY PROSTATE 09/04/19 08/01/23 History niacin 500 mg capsule,extended 500 mg PO DAILY SUPPLEMENT 09/16/19 08/01/23 History release ascorbic acid (vitamin C) 1,000 mg 1,000 mg PO DAILY SUPPLEMENT 01/18/20 08/01/23 History tablet atorvastatin 10 mg tablet 10 mg PO DAILY CHOLESTEROL 08/25/20 08/01/23 History clopidogrel 75 mg tablet 75 mg PO DAILY BLOOD THINNER 08/25/20 08/01/23 History finasteride 5 mg tablet 5 mg PO DAILY PROSTATE 08/26/20 08/01/23 History hydrochlorothiazide 25 mg tablet 25 mg PO DAILY BLOOD PRESSURE #90 09/20/20 08/01/23 Rx tabs aspirin 81 mg tablet,delayed 81 mg PO DAILY HEART HEALTH 04/25/21 08/01/23 History release (Adult Aspirin Regimen) buspirone 5 mg tablet 5 mg PO TID 08/01/23 08/01/23 History hydrocodone-acetaminophen 5-325mg 1 tab PO Q6H PRN PAIN 08/01/23 Unknown History 5mg-325mg latanoprost 0.005 % eye drops 1 drp ophthalmic (eye) QHS GLAUCOMA 08/01/23 07/31/23 History metoprolol succinate 25 mg 25 mg PO DAILY BLOOD PRESSURE 08/01/23 08/01/23 History tablet,extended release 24 hr omeprazole 40 mg capsule,delayed 40 mg PO DAILY ACID REFLUX 08/01/23 08/01/23 History release trazodone 50 mg tablet 50 mg PO QHS SLEEP 08/01/23 08/01/23 History Lactobacillus acidophilus 1 1,000 mmu cells PO DAILY #30 caps 08/04/23 Unknown Rx billion cell capsule cefdinir 300 mg capsule 300 mg PO BID #10 caps 08/04/23 Unknown Rx guaifenesin 1,200 mg tablet, 1,200 mg PO BID #20 tabs 08/04/23 Unknown Rx extended release 12 hr (Mucus Relief ER) prednisone 20 mg tablet 20 mg PO BID #10 tabs 08/04/23 Unknown Rx Allergy/AdvReac Type Severity Reaction Status Date / Time Sulfa (Sulfonamide Allergy Rash Verified 02/09/24 10:00 Antibiotics) lisinopril AdvReac Other Verified 02/09/24 10:00 Family History Father CVA (cerebral vascular accident) Mother CVA (cerebral vascular accident) Hypertension Surgical History History of colonoscopy (12/2019) History of coronary artery stent placement (09/08/19) History of angioplasty of peripheral vessel (08/2017) History of herniorrhaphy History of esophagogastroduodenoscopy (EGD) (12/2019) Social History Smoking Status: Former smoker ROS ROS ED Constitutional Constitutional ED: Denies chills or fever(s) Eyes Eyes: Denies discharge from eye(s) ENT ENT ED: Denies discharge from eye(s), rhinorrhea or sore throat Cardiovascular Cardiovascular: Denies chest pain or palpitations Respiratory/Chest Respiratory/Chest: Reports dyspnea; Denies cough Gastrointestinal Gastrointestinal: Denies abdominal pain, nausea or vomiting Genitourinary Genitourinary ED: Denies dysuria Musculoskeletal Musculoskeletal: Denies back pain or extremity pain Integumentary Denies Abrasions or rash Neurologic Neurologic: Reports weakness; Denies headache(s) Psychiatric Psychiatric: Denies anxiety or depression Allergic/Immunologic Allergic/Immunologic ED: Denies lip swelling or urticaria EXAM Physical Exam Const Vital Signs: 02/09/24 09:40 02/09/24 09:41 02/09/24 09:42 Temperature 97 F L 97 F L 97 F L Temperature Source Temporal Temporal Temporal Pulse Rate 65 63 66 Respiratory Rate 20 H 20 H 20 H Respiratory Effort Respiratory Depth Respiratory Pattern Blood Pressure 146/61 H 146/61 H 146/61 H Blood Pressure Mean 89 89 89 Pulse Ox 95 100 100 Oxygen Delivery Method Room Air Room Air Room Air Oxygen Flow Rate (L/min) 02/09/24 09:51 02/09/24 09:58 02/09/24 10:36 Temperature Temperature Source Pulse Rate Respiratory Rate Respiratory Effort Short of Breath Short of Breath Respiratory Depth Shallow Respiratory Pattern Normal Normal Blood Pressure Blood Pressure Mean Pulse Ox 97 Oxygen Delivery Method Room Air Nasal Cannula Oxygen Flow Rate (L/min) 2 02/09/24 10:40 02/09/24 10:42 02/09/24 12:00 Temperature 97.8 F Temperature Source Temporal Pulse Rate 59 L 61 Respiratory Rate 17 14 Respiratory Effort Respiratory Depth Respiratory Pattern Blood Pressure 162/68 H 166/83 H Blood Pressure Mean 99 110 Pulse Ox 88 97 94 Oxygen Delivery Method Room Air Nasal Cannula Nasal Cannula Oxygen Flow Rate (L/min) 2 2 Positive well nourished and well developed General Appearance ED: well developed HEENT Reports normocephalic and head/scalp atraumatic Eyes PERRL and EOMs intact bilaterally Neck supple Chest Wall inspection of chest normal and palpation of chest normal Resp normal respiratory effort and clear to auscultation bilaterally Cardio regular rate and regular rhythm GI normal to inspection, nondistended, normoactive bowel sounds Palpation: soft Extremity normal to inspection Neuro oriented x3 and no sensory deficits noted Sensorium / Orientation: alert Motor Exam: strength 5/5 throughout Psych mental status grossly normal Skin no rashes or lesions noted MDM MDM MDM Narrative Medical decision making narrative: Patient's vital signs were noted to be 100% on room air on arrival. When I entered the room patient's now on 2 L nasal cannula. Nursing staff states that he did drop down to 87 to 88% on room air while sitting at rest. Patient placed on clinical research monitor. IV line initiated. EKG obtained to evaluate for cardiac arrhythmia/ischemia. Chest x-ray obtained to evaluate for acute lung pathology, cardiac size, or mediastinal abnormality. Labwork obtained to evaluate for leukocytosis, anemia, and electrolyte derangement. History & Record Review Discussion w/independent historian: Patient and Family Additional record(s) reviewed:: Prior outpatient record and Prior labs Lab Data Attestation: I reviewed the patient's lab results. Labs: Laboratory Results - last 24 hr 02/09/24 10:02 WBC 8.4 RBC 5.07 Hgb 15.6 Hct 46.2 MCV 91.1 MCH 30.8 MCHC 33.8 RDW Std Deviation 53.1 H RDW Coeff of Jihan 15.9 H Plt Count 264 MPV 10.8 Immature Gran % (Auto) 1.000 H Neut % (Auto) 83.5 H Lymph % (Auto) 5.8 L [place] % (Auto) 8.1 Eos % (Auto) 1.4 Baso % (Auto) 0.2 Absolute Neuts (auto) 7.0 Absolute Lymphs (auto) 0.49 L Nucleated RBC % 0 D-Dimer Quant (PE/DVT) 0.34 Sodium 136 Potassium 3.6 Chloride 105 Carbon Dioxide 24.0 Anion Gap 7 BUN 12 Creatinine 0.92 Estim Creat Clear Calc 58.61 Est GFR (MDRD) Af Amer 100 Est GFR (MDRD) Non-Af 83 BUN/Creatinine Ratio 13.1 Glucose 115 H Calcium 9.0 Troponin I High Sens 7 B-Natriuretic Peptide 180.0 H Radiography Chest X-Ray - ED: 2 View, Read by ED Physician, Chronic Changes and No Infiltrates Diagnostic Testing: Clinical Impression(s) from Imaging Studies Chest X-Ray 02/09/24 10:51 IMPRESSION: No radiographic evidence of acute cardiopulmonary disease. Electronically Signed: Yana Sampson MD at 11:25 EDT , EKG Initial EKG: Attestation: I personally reviewed and interpreted this EKG as follows: Interpretation: Sinus Rhythm (Sinus rhythm at 62 bpm. No acute ischemia.) Treatment and Re-Evaluation :: CBC oh, white count 8.4 with 83% neutrophils. Hemoglobin is 15.6. Chemistry studies unremarkable with normal renal function. Glucose is 115. Troponin is normal at 7 and D-dimer is normal at 0.34. BNP is 180. This is consistent with the patient's prior BNP values. Patient's previous echocardiogram from July 2023 was reviewed and his EF is 65%. Patient was taken off his nasal cannula. His oxygen saturation remained 94% while sitting at rest. Patient was ambulated in the room with both the pulse ox on the monitor as well as a portable pulse ox on him. One of the monitors dropped to 87% and 1 drop to 89%. Patient quickly recovered when he sat to rest. He did not feel short of breath. At this time patient will continue to monitor his oxygen levels at home. He does have a pulse ox meter to closely watch these values. 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 Daughter will call to see if they can get that moved up. Patient and daughter are both comfortable with the plan. Close follow-up as well as return instructions reviewed. Discharge Plan Triage Chief Complaint: Shortness of Breath Other Complaint: Weakness ED Provider: Tamra Ivey Dx/Rx/DC Orders Clinical Impression: Dyspnea Instructions: ED Dyspnea Prescriptions: No Action amlodipine 10 mg tablet 10 mg PO DAILY tamsulosin 0.4 mg capsule 0.4 mg PO DAILY niacin 500 mg capsule, extended release 500 mg PO DAILY aspirin [Adult Aspirin Regimen] 81 mg tablet,delayed release (DR/EC) 81 mg PO DAILY citalopram 20 MG tablet 20 mg PO DAILY multivitamin 1 EACH tablet 1 ea PO DAILY ascorbic acid (vitamin C) 1,000 MG tablet 1,000 mg PO DAILY atorvastatin 10 MG tablet 10 mg PO DAILY clopidogrel 75 MG tablet 75 mg PO DAILY finasteride 5 MG tablet 5 mg PO DAILY latanoprost 0.005 % drops 1 drp ophthalmic (eye) QHS Rx Instructions: INSTILL ONE DROP INTO BOTH EYES AT BEDTIME trazodone 50 mg tablet 50 mg PO QHS omeprazole 40 mg capsule,delayed release(DR/EC) 40 mg PO DAILY metoprolol succinate 25 mg tablet extended release 24 hr 25 mg PO DAILY buspirone 5 mg tablet 5 mg PO TID Patient Comments: PT STATES THEY NORMALLY TAKE ONE OF THESE ONCE A DAY ( OF 08-02-23) hydrocodone-acetaminophen 5-325 mg tablet 1 tab PO Q6H PRN (Reason: PAIN ) guaifenesin [Mucus Relief ER] 1,200 mg Tablet Extended Release 12hr 1,200 mg PO BID Qty: 20 0RF prednisone 20 mg tablet 20 mg PO BID Qty: 10 0RF cefdinir 300 mg capsule 300 mg PO BID Qty: 10 0RF Lactobacillus acidophilus 1 billion cell capsule 1,000 mmu cells PO DAILY Qty: 30 0RF hydrochlorothiazide 25 mg tablet 25 mg PO DAILY Qty: 90 3RF Primary Care Provider: Radha Durbin Referrals: Dejuan Brooks MD [Med Staff - Active Staff] - As soon as possible Radha Durbin PA [Primary Care Provider] - 1 Week Print Language: Setswana Disposition Disposition: Home, Self Care
[2024-02-09 11:18] LABS: Absolute Lymphocyte Count 0.49 X10^3/uL (0.83-4.51); Basophil# 0.02 X10^3/uL; Basophil% 0.2 % (0-1); Eosinophil# 0.12 X10^3/uL; Eosinophils% 1.4 % (0-5); Hematocrit 46.2 % (40-54); Hemoglobin 15.6 g/dL (13.0-16.5); Lymphocyte # 0.49 X10^3/ul (0.83-4.51); Lymphocyte % 5.8 % (19-41); Mean Corp Hgb Conc 33.8 g/dL (32-36); Mean Corpuscular Hgb 30.8 pg (27.0-32.0); Mean Corpuscular Volume 91.1 fL (80-94); Mean Platelet Vol. 10.8 fl (6.2-12.0); Monocyte# 0.68 X10^3/uL; Monocyte% 8.1 % (0-10); NRBC Flagged by Analyzer 0 % (0-5); Neutrophil # 7.03 X10^3/uL (2.7-7.7); Neutrophil % 83.5 % (47-70); POSITIVE DIFFERENTIAL YES; Platelet Count 264 K/mm3 (150-450); RBC Distribution Width CV 15.9 % (11.6-14.6); RBC Distribution Width SD 53.1 fl (35.1-43.9); Red Blood Count 5.07 M/mm3 (4.6-6.2); White Blood Count 8.4 K/mm3 (4.4-11.0)
[2024-02-09 11:24] LABS: D-Dimer Quantitative (DVT/PE) 0.34 FEU/ug/m (0.27-0.49)
[2024-02-09 11:33] LABS: Anion Gap 7 (5-15); BUN 12 mg/dL (7-18); BUN/Creat Ratio 13.1 RATIO (10-20); Chloride 105 mmol/L (98-107); Creatinine, Serum 0.92 mg/dL (0.70-1.30); EST Glomerular Filtration Rate 83 mL/min (>60); Est Glom Filt Rate - Afr Amer 100 mL/min (>60); Estimated Creatinine Clearance 58.61 ml/min; Glucose 115 mg/dL (74-106); Potassium 3.6 mmol/L (3.5-5.1); Sodium Level 136 mmol/L (136-145); Troponin-I HS 7 pg/mL (3.0-78.0)
== END 2024-02-09 13:31 | disposition home or self-care (01) ==
PROVIDERS: Emergency Provider Emergency Medicine; PCP Physician Assistant; Visit Provider Emergency Medicine
DX: R06.00 Dyspnea, unspecified (principal); R53.1 Weakness; I10 Essential (primary) hypertension; I25.10 Atherosclerotic heart disease of native coronary artery without angina pectoris; E78.5 Hyperlipidemia, unspecified; Z79.02 Long term (current) use of antithrombotics/antiplatelets; Z79.899 Other long term (current) drug therapy; Z87.891 Personal history of nicotine dependence; Z95.5 Presence of coronary angioplasty implant and graft
CPT/HCPCS: 71046; 80048; 83880; 84484; 85025; 85379; 93005; 99285; A4216

== ENCOUNTER 2024-09-07 10:20 | Inpatient (IN) | payer MEDICARE, SELFPAY ==
[2019-09-08 13:16] VITALS: BMI 24.7
[2024-09-07] VITALS (18 sets, daily range): BP systolic 119–158; BP diastolic 57–82; PULSE 72–94; RESP 18–28; TEMP 36.3–36.9; O2SAT 12–97; BMI 21.4; BMI 22.4
--- NOTE | 2024-09-07 10:22 | RAD_ITS ---
PROCEDURE: CHEST 1 VIEW REASON FOR EXAM: Cough TECHNIQUE: Frontal view of the chest. COMPARISON: Reviewed. FINDINGS: The cardiac and mediastinal contours are normal. The lungs are clear. RAD/Chest 1 View IMPRESSION: No acute radiographic process. Reading Location: [facility]
--- NOTE | 2024-09-07 10:22 | EKG12_ITS ---
Test Reason : NEURO Blood Pressure : */* mmHG Vent. Rate : 81 BPM Atrial Rate : 81 BPM P-R Int : 152 ms QRS Dur : 102 ms QT Int : 410 ms P-R-T Axes : 62 5 22 degrees QTcB Int : 476 ms Sinus rhythm with Premature atrial complexes with Aberrant conduction Otherwise normal ECG Confirmed by ROSA MANUEL, SKYLER ([id number]), purchasing expeditor FARSHAD PANDYA ([id number]) on 09/08/2024 11:07:09 AM Referred By: Confirmed By: SKYLER LEE MD
--- NOTE | 2024-09-07 10:22 | CT_ITS ---
EXAM: STROKE BRAIN/HEAD WITHOUT CONT CLINICAL HISTORY: Stroke COMPARISON: None. TECHNIQUE: Noncontrast images of the head with multiplanar reconstructions. Dose reduction techniques were used including intermediate exposure control (AEC),iterative reconstruction technique, and/or mA and/or KV dose adjustments based on patient's size. FINDINGS: CT HEAD FINDINGS: No acute intracranial hemorrhage, mass, mass effect, midline shift or pathologic extra-axial fluid collection. No hydrocephalus. Age- appropriate cerebral volume and white matter. Visualized paranasal sinuses and mastoid air cells are clear. The calvarium is grossly intact. CT/STROKE Brain/Head without Cont IMPRESSION: No CT evidence of acute intracranial pathology. Attempting to contact lisa provider At the time of this dictation Reading Location: [facility]
--- NOTE | 2024-09-07 10:23 | RAD_ITS ---
PROCEDURE: ELBOW MIN 3 VIEWS REASON FOR EXAM: Pain TECHNIQUE: Bilateral elbow x-rays three views each COMPARISON: None. FINDINGS: RIGHT ELBOW: No visible fracture. No suspicious bone lesion. Normal alignment. No effusion. LEFT ELBOW: No visible fracture. No suspicious bone lesion. Normal alignment. No effusion. Soft tissue swelling of the bilateral elbows is nonspecific. RAD/Elbow min 3 Views IMPRESSION: Soft tissue swelling bilaterally. No other acute radiographic process. Reading Location: [facility]
--- NOTE | 2024-09-07 10:23 | CT_ITS ---
PROCEDURE: CTA HEAD AND NECK W/ CONTRAST REASON FOR EXAM: Stroke TECHNIQUE: CTA imaging of the head and neck from the aortic arch to the skull vertex with intravenous contrast. 3D reconstructions. COMPARISON: Reviewed. FINDINGS: CT evidence of normal pressure hydrocephalus. Aortic Arch: Normal size and branching pattern. No significant atherosclerotic plaque. Brachiocephalic and Subclavians: Unremarkable RIGHT Carotid: Right CCA: Unremarkable. Right ICA: Unremarkable. Right ECA: Unremarkable. LEFT Carotid: Left CCA: Scattered atheromatous plaque. Left ICA: Unremarkable. Left ECA: Unremarkable. Vertebrals: Codominant. Arise from the subclavians. Both vertebrals form the basilar. RIGHT Vertebral: Unremarkable. LEFT Vertebral: Unremarkable. No intracranial aneurysms or large vascular malformations are identified. Anterior cerebral arteries: Unremarkable. Middle cerebral arteries: Unremarkable. Basilar artery: Unremarkable. Posterior cerebral arteries: Unremarkable. Other major branches of the posterior circulation: Unremarkable. Major venous structures: Unremarkable. Other findings: No lymphadenopathy. Lung apices are clear. Bones are unremarkable. CT/CTA Head AND Neck W/ Contrast IMPRESSION: No large vessel flow-limiting stenotic change. CT evidence of normal pressure hydrocephalus relatively unchanged from prior ex ams. One or more dose reduction techniques were used (e.g., Automated exposure contr ol, adjustment of the mA and/or kV according to patient size, use of iterative reconstruction technique). Reading Location: [facility]
--- NOTE | 2024-09-07 10:25 | EX.ED.DYSGE1 ---
HPI History of Present Illness Chief Complaint: Stroke Alert [facility] Medical History (Updated 09/07/24 @ 13:[address] 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 vascular occlusive disease Hyperlipidemia Essential (primary) hypertension GERD (gastroesophageal reflux disease) BPH (benign prostatic hyperplasia) Anxiety Incontinence Diverticulosis Home Medications ?Medication ?Instructions ?Recorded ?Last Taken ?Type citalopram 20 mg tablet 20 mg PO DAILY DEPRESSION 03/17/14 08/01/23 History multivitamin 1 ea PO DAILY HEALTH MINENANCE 05/16/17 08/01/23 History tamsulosin 0.4 mg capsule 0.4 mg PO DAILY PROSTATE 09/04/19 08/01/23 History ascorbic acid (vitamin C) 1,000 mg 1,000 mg PO DAILY SUPPLEMENT 01/18/20 08/01/23 History tablet atorvastatin 10 mg tablet 10 mg PO DAILY CHOLESTEROL 08/25/20 08/01/23 History clopidogrel 75 mg tablet 75 mg PO DAILY BLOOD THINNER 08/25/20 08/01/23 History finasteride 5 mg tablet 5 mg PO DAILY PROSTATE 08/26/20 08/01/23 History hydrochlorothiazide 25 mg tablet 25 mg PO DAILY BLOOD PRESSURE #90 09/20/20 08/01/23 Rx tabs latanoprost 0.005 % eye drops 1 drp ophthalmic (eye) QHS GLAUCOMA 08/01/23 07/31/23 History metoprolol succinate 25 mg 25 mg PO DAILY BLOOD PRESSURE 08/01/23 08/01/23 History tablet,extended release 24 hr omeprazole 40 mg capsule,delayed 40 mg PO DAILY ACID REFLUX 08/01/23 08/01/23 History release trazodone 50 mg tablet 50 mg PO QHS SLEEP 08/01/23 08/01/23 History Lactobacillus acidophilus 1 1,000 mmu cells PO DAILY #30 caps 08/04/23 Unknown Rx billion cell capsule amlodipine 10 mg tablet 5 mg PO DAILY BLOOD PESSURE 02/19/24 Unknown History buspirone 10 mg tablet 10 mg PO TID 02/19/24 Unknown History Allergy/AdvReac Type Severity Reaction Status Date / Time Sulfa (Sulfonamide Allergy Rash Verified 02/19/24 11:13 Antibiotics) lisinopril AdvReac Other Verified 02/19/24 11:13 Family History Father CVA (cerebral vascular accident) Mother CVA (cerebral vascular accident) Hypertension Surgical History History of colonoscopy (12/2019) History of coronary artery stent placement (09/08/19) History of angioplasty of peripheral vessel (08/2017) History of herniorrhaphy History of esophagogastroduodenoscopy (EGD) (12/2019) Social History Smoking Status: Former smoker EXAM Physical Exam Const Vital Signs: 09/07/24 10:23 09/07/24 10:27 09/07/24 10:34 Temperature 98.1 F Temperature Source Temporal Pulse Rate 85 85 Respiratory Rate 18 18 Respiratory Pattern Blood Pressure 152/82 H 152/82 H Blood Pressure Mean 105 105 Pulse Ox 91 91 Oxygen Delivery Method Room Air Room Air Room Air Oxygen Flow Rate (L/min) Fraction of Inspired Oxygen (FIO2) 09/07/24 10:38 09/07/24 10:38 09/07/24 11:00 Temperature Temperature Source Pulse Rate 86 Respiratory Rate 18 Respiratory Pattern Blood Pressure 142/57 H 156/75 H Blood Pressure Mean 85 102 Pulse Ox 67 Oxygen Delivery Method Room Air Non-Rebreather Oxygen Flow Rate (L/min) 15 Fraction of Inspired Oxygen (FIO2) 09/07/24 11:10 09/07/24 11:18 09/07/24 11:32 Temperature Temperature Source Pulse Rate 82 81 Respiratory Rate 22 H 22 H Respiratory Pattern Tachypnea Tachypnea Blood Pressure Blood Pressure Mean Pulse Ox 95 93 Oxygen Delivery Method Airvo Oxygen Flow Rate (L/min) Fraction of Inspired Oxygen (FIO2) 50 50 40 09/07/24 12:29 Temperature Temperature Source Pulse Rate 94 Respiratory Rate 19 H Respiratory Pattern Blood Pressure 119/58 L Blood Pressure Mean 78 Pulse Ox 92 Oxygen Delivery Method Airvo Oxygen Flow Rate (L/min) Fraction of Inspired Oxygen (FIO2) MDM MDM MDM Narrative Medical decision making narrative: HISTORY OF PRESENT ILLNESS: 88-year-old male presents with concern for acute stroke. His last known well was 9 PM on 09/06/2024. Per his family patient was found on the floor concerned he may have fallen behaving abnormally. They deny taking blood thinners but notes patient on Plavix. Per EMS vitals were stable, blood sugar was acceptable. REVIEW OF SYSTEMS: Pertinent positives: Confusion Pertinent negatives: Chest pain, cough PHYSICAL EXAM: Nursing triage notes reviewed, Vital signs reviewed Constitutional: please see mdm HENT: MMM Eyes: Pupils equal round and reactive to light, Extraocular muscles intact Neck: No stridor, no JVD, full neck ROM Lungs: Clear to auscultation, No wheezing or rales. No increased work of breathing, no conversational dyspnea, no accessory muscle use, no nasal flaring. No respiratory distress noted Heart: Regular rate and rhythm, No murmurs, No rubs and No gallops, 2+ distal pulses (radial, femoral, posterior tibial) in all extremities Abdomen: Soft, there is no tenderness, rigidity, rebound or guarding, no obvious peritoneal signs, no palpable pulsatile abdominal masses, no auscultated abdominal bruit : No CVAT Extremities: No edema Neuro: Initial neurologic exam was consistent with a NIH of 1 for level consciousness questions otherwise there is no obvious focal deficits, obvious cranial nerve deficits, visual field defects, obvious aphasia or dysarthria. Skin: No rash or lesions noted MEDICAL DECISION MAKING: Chief Complaint: Confusion, stroke alert External records reviewed: [Reviewed prior imaging studies Factors affecting care: Hyperlipidemia, BPH, hypertension, GERD Social determinants of health: Elderly History obtained from others: EMS/family Consults: Internal medicine MDM Narrative: The patient was initially hemodynamically stable, initially afebrile upon arrival to the ED stroke protocol is initiated. Given the patient cannot answer level of consciousness questions stroke alert was continued. Once patient returned from the CT suite he was noted to be hypoxic to 69% on room air. Initially placed on 6 L nasal cannula continued to be hypoxic to the low 80s. He was placed on a nonrebreather then transition over to high flow nasal cannula to improve his oxygenation. Along with improving oxygenation we noted his mental status improved. Repeat neurologic exam had NIH of 0. No focal deficits. At this point code stroke was canceled. I considered the following differential diagnosis: PE, pneumonia, COVID, RSV, flu, anemia, ACS, arrhythmia, ICH, mass, large vessel occlusion ALL IMAGES (IF OBTAINED) HAVE BEEN PERSONALLY REVIEWED AND INTERPRETED BY MYSELF. CT scan of the head, CT of the head and neck showed no evidence of mass, bleed or large vessel occlusion Initial troponin elevated consistent with myocardial ischemia likely type II demand ischemia given hypoxia ABG without obvious hypoxia or CO2 retention, no signs of respiratory acidosis BMP with mild hypokalemia, noted metabolic acidosis and elevated anion gap likely secondary to increased lactate production in the setting of hypoxia BNP elevated consistent with increased ventricular stretch Urinalysis shows no evidence of urinary inflammation suggestive of UTI I have personally reviewed the patient's chest x-ray. Chest x-ray is unremarkable for pulmonary edema, pneumothorax, pneumonia or focal cardiopulmonary abnormality. No coagulopathy CBC with leukocytosis suggestive of systemic inflammation, no anemia or thrombocytopenia COVID/RSV/flu negative Despite having marked hypoxia and respiratory failure there is no clear precipitating cause of the patient's hypoxia. Suspect he may be suffering from a PE. Given received a contrast load as part of stroke protocol I do not feel comfortable performing a CT of the chest although I think this test is warranted in this case. In lieu of CTA chest, definitive diagnosis of PE I cover the patient with 1 shot of subcutaneous Lovenox. I discussed case the hospitalist Dr. Faith. Who accepted the patient's case. The patient and/or family, caregivers express understanding. The patient and/or family, caregivers agrees with the plan. Shared decision making: I will have a discussion with the patient and or visitors regarding risk/benefits of further testing or admission. They will be made aware of of the risk/benefits inherent in this decision they will be given the opportunity to voice understanding. Total critical care time today provided was at least 60 minutes. This excludes separately billable procedures. Critical care time (if documented) is secondary to the patient having high probability of clinically significant/life threatening deterioration in the patient's condition which required my urgent intervention. Impression: 1. Acute respiratory failure 2. Leukocytosis 3. Metabolic acidosis Dispo: Admit to PCU This note was generated with [employer] dictation software. It may contain incorrect words, spelling, and punctuation that were not noted in review of the chart prior to signing. Lab Data Labs: Laboratory Results - last 24 hr 09/07/24 09/07/24 10:36 11:04 WBC 12.7 H RBC 5.01 Hgb 15.8 Hct 46.6 MCV 93.0 MCH 31.5 MCHC 33.9 RDW Std Deviation 53.0 H RDW Coeff of Jihan 16.4 H Plt Count 195 MPV 11.0 Immature Gran % (Auto) 1.200 H Neut % (Auto) 85.2 H Lymph % (Auto) 5.8 L Warrick % (Auto) 7.4 Eos % (Auto) 0.1 Baso % (Auto) 0.3 Absolute Neuts (auto) 10.8 H Absolute Lymphs (auto) 0.74 L Nucleated RBC % 0 PT 13.6 INR 1.0 APTT 26.5 D-Dimer Quant (PE/DVT) 1.63 H* Sodium 138 Potassium 3.3 L Chloride 104 Carbon Dioxide 18.0 L Anion Gap 16 H BUN 20 H Creatinine 1.04 Estim Creat Clear Calc 49.04 Est GFR (MDRD) Af Amer 87 Est GFR (MDRD) Non-Af 72 BUN/Creatinine Ratio 19.2 Glucose 77 Calcium 8.7 Troponin I High Sens 63 B-Natriuretic Peptide 221.1 H Urine Color Yellow Urine Clarity Clear Urine pH 6.0 Ur Specific [place] 1.010 Urine Protein 30 H Urine Glucose (UA) Normal Urine Ketones 5 H Urine Occult Blood 25 H Urine Nitrite Negative Urine Bilirubin Negative Urine Urobilinogen Normal Ur Leukocyte Esterase Negative Urine RBC 0-5 SEEN Urine WBC 0-5 SEEN Ur Squamous Epith Cells 0-5 SEEN Calcium Oxalate Crystal 1+ Urine Bacteria RARE Hyaline Casts 0-5 SEEN Urine Mucus 1+ ABG Data ABG results: ABG 09/07/24 11:20 Specimen Type ART Sample Site R Radial pH 7.38 Bicarbonate Actual 17.0 L Total CO2 18 Base Excess -8 L O2 Saturation 98 O2 % 50.0 ABG pCO2 28.6 L ABG pO2 102 H Christian Test Positive O2 Delivery Device HFNC Vent Mode Not entered Clinical Comments AIRVO 60L Radiography Diagnostic Testing: Clinical Impression(s) from Imaging Studies Brain CT 09/07/24 10:22 IMPRESSION: No CT evidence of acute intracranial pathology. Attempting to contact referring provider At the time of this dictation Reading Location: [facility] Chest X-Ray 02/09/25 10:22 IMPRESSION: No acute radiographic process. Reading Location: [facility] Elbow X-Ray 09/07/24 10:23 IMPRESSION: Soft tissue swelling bilaterally. No other acute radiographic process. Reading Location: [facility] Head/Neck CTA 09/07/24 10:23 IMPRESSION: No large vessel flow-limiting stenotic change. 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 One or more dose reduction techniques were used (e.g., Automated exposure control, adjustment of the mA and/or kV according to patient size, use of iterative reconstruction technique). Reading Location: [facility] Elbow X-Ray 09/07/24 11:20 IMPRESSION: Soft tissue swelling bilaterally. No other acute radiographic process. Reading Location: [facility] Discharge Plan Triage Chief Complaint: Stroke Alert ED Provider: Neo Tejeda Dx/Rx/DC Orders Primary Care Provider: Brigitte Rico
[2024-09-07 10:44] LABS: Absolute Lymphocyte Count 0.74 X10^3/uL (0.83-4.51); Absolute Neutrophil Count 10.8 X10^3/uL (2.0-7.7); Basophil# 0.04 X10^3/uL; Basophil% 0.3 % (0-1); Eosinophil# 0.01 X10^3/uL; Eosinophils% 0.1 % (0-5); Hematocrit 46.6 % (40-54); Hemoglobin 15.8 g/dL (13.0-16.5); Lymphocyte # 0.74 X10^3/ul (0.83-4.51); Lymphocyte % 5.8 % (19-41); Mean Corp Hgb Conc 33.9 g/dL (32-36); Mean Corpuscular Hgb 31.5 pg (27.0-32.0); Monocyte# 0.93 X10^3/uL; Monocyte% 7.4 % (0-10); NRBC Flagged by Analyzer 0 % (0-5); Neutrophil # 10.78 X10^3/uL (2.7-7.7); Neutrophil % 85.2 % (47-70); Platelet Count 195 K/mm3 (150-450); RBC Distribution Width CV 16.4 % (11.6-14.6); Red Blood Count 5.01 M/mm3 (4.6-6.2); White Blood Count 12.7 K/mm3 (4.4-11.0)
[2024-09-07 10:53] LABS: Partial Thromboplast Time 26.5 Seconds (24.1-36.2); Prothrombin Time (Protime)PT. 13.6 SECONDS (11.7-14.9)
--- NOTE | 2024-09-07 10:53 | ED.RN ---
PER DR. BEDOYA, WE WILL TREAT THIS HYPOXIA RATHER THAN A STROKE
[2024-09-07 11:14] LABS: Color, Urine Yellow (Yellow); Glucose, Dipstick Normal (Normal); Ketone-Dipstick 5 mg/dl (Negative); Leukocyte Esterase-Dipstick Negative /ul (Negative); Nitrite-Dipstick Negative (Negative); Occult Blood-Urine 25 /ul (Negative); Protein-Dipstick 30 mg/dl (Negative); Urine Bilirubin Dipstick Negative (Negative); Urine Clarity Clear (Clear); Urine Urobilinogen Normal (Normal)
--- NOTE | 2024-09-07 11:20 | RAD_ITS ---
PROCEDURE: ELBOW MIN 3 VIEWS REASON FOR EXAM: Pain TECHNIQUE: Bilateral elbow x-rays three views each COMPARISON: None. FINDINGS: RIGHT ELBOW: No visible fracture. No suspicious bone lesion. Normal alignment. No effusion. LEFT ELBOW: No visible fracture. No suspicious bone lesion. Normal alignment. No effusion. Soft tissue swelling of the bilateral elbows is nonspecific. RAD/Elbow min 3 Views IMPRESSION: Soft tissue swelling bilaterally. No other acute radiographic process. Reading Location: [facility]
[2024-09-07 11:23] LABS: Allen Test Positive; Base Excess -8 mmol/L (-2 to +2); Blood Gas Specimen Type ART; Comment AIRVO 60L; Mode Not entered; O2 Delivery Device HFNC; PO2 102 mmHG (75-100); SITE R Radial; SO2 98 % (95-99); Total Carbon Dioxide 18 mmol/L; pCO2 28.6 mmHg (35-45); pH 7.38 (7.35-7.45)
[2024-09-07 11:29] LABS: BNP,B-Type NATRIURETIC PEPTIDE 221.1 pg/mL (0-100)
[2024-09-07 11:34] LABS: Bacteria RARE /hpf (None Seen); Hyaline Cast 0-5 SEEN /lpf (0-5); Mucous, Urine 1+ /hpf (<or=2+); Red Blood Cells-Urine 0-5 SEEN /hpf (0-5); Squamous Epithelial Cells - UA 0-5 SEEN /hpf (0-5); White Blood Cells 0-5 SEEN /hpf (0-5)
[2024-09-07 11:35] LABS: Calcium Oxalate Crystals Ur 1+ /hpf (<or=2+)
[2024-09-07 12:17] LABS: Anion Gap 16 (5-15); BUN 20 mg/dL (7-18); BUN/Creat Ratio 19.2 RATIO (10-20); Calcium,Total 8.7 mg/dL (8.5-10.1); Chloride 104 mmol/L (98-107); Creatinine, Serum 1.04 mg/dL (0.70-1.30); EST Glomerular Filtration Rate 72 mL/min (>60); Est Glom Filt Rate - Afr Amer 87 mL/min (>60); Estimated Creatinine Clearance 49.04 ml/min; Glucose 77 mg/dL (74-106); Potassium 3.3 mmol/L (3.5-5.1); Sodium Level 138 mmol/L (136-145); Troponin-I HS 63 pg/mL (3.0-78.0)
--- NOTE | 2024-09-07 13:05 | CASEMGMT ---
Care Management Face to Face with patient for initial transition planning/care coordination assessment in the ED.? This staff writer introduced self and role at [facility]. Patient alert and oriented. Patient willing to participate in assessment and is able to answer all questions appropriately.? Patient?s son Bill and daughter Cathleen Tavera? were also present and answered some questions as well. Care providers, pharmacy, and demographics verified. Admitting Diagnosis: Hypoxia Other diagnosis history: Including but may not be limited to: Acute Respiratory Failure with Hypoxia, Peripheral Vascular Occlusive Disease, HTN, GERD, BPH, Diverticulosis, Anxiety and Depression. PCP: Dr. Brigitte Rico Specialists: No current specialists in place however patient previously saw a staff pharmacist. Preferred Pharmacy: [facility] Insurance: [employer] Prescription Benefit: Yes Living Will/HPOA: ?Patient?s children reported patient is a DNR and has a living will and POA that they believe is on file at [facility].? Neither are certain of the POA and would like to discuss further while at the hospital to get more information. LNOK: Patient?s son and daughter (see above). Patient is and does not have any other children. Living Arrangements: Patient currently resides alone in a single story home. Patient has 4 steps that he has to go up/down to enter/exit the home which patient is normally able to navigate w/o difficulty. No environmental barriers were reported. Transportation: Patient drives. DME: standard cane, rollator, grab bar in the garage and a shower chair. HHC: None previously but may need. Would like to discuss again while here. SNF/Rehab: No history Community Resources: [facility] and [facility]. Behavioral Health History: Patient has a history of anxiety and depression. Patient goals: Patient wishes to discharge home when medically ready. Disposition Plan: Admission to acute; RN CM/SW to follow for discharge planning needs that may arise. Tamra Florez, HEAVY EQUIPMENT OPERATOR/PAVER, TIP INSERTER
[2024-09-07 13:07] LABS: D-Dimer Quantitative (DVT/PE) 1.63 FEU/ug/m (0.27-0.49)
--- NOTE | 2024-09-07 13:17 | PCM.HP.STD ---
HPI - General General Date of Admission: 09/07/24 Date of Service: 09/07/24 Chief Complaint: Altered mental status HPI Narrative CLARK LYLES, is a 88 M with past medical history is again for hypertension, previous history of tobacco use, coronary artery disease with previous PCI who was brought to the emergency department by the family on account of patient experiencing episodic confusion on the morning of his presentation. Per patient's family patient started complaining of dizziness the day prior. His son stayed with him throughout the whole night. On the morning of his presentation patient's daughter called and found patient to be confused and slurring his words. He was subsequently brought to the emergency department. Acute CVA was ruled out. Patient was however found to be significantly hypoxic with oxygen saturation in the 60s. Was placed on normal invasive ventilation?Airvo with improvement in his oxygen saturation as well as mentation. Chest x-ray obtained in the ED came back unremarkable admitted to monitored bed for further management [facility] Medical History (Updated 09/07/24 @ 13:[address] Jerrell Faith MD) COVID-19 virus detected (08/23/20) Anxiety and depression Chronic anemia Acute respiratory failure with hypoxia Hypoxia Pneumonia due to COVID-19 virus GI bleed (12/2019) Atherosclerosis of coronary artery of [place] heart without angina pectoris Peripheral vascular occlusive disease Hyperlipidemia Essential (primary) hypertension GERD (gastroesophageal reflux disease) BPH (benign prostatic hyperplasia) Anxiety Incontinence Diverticulosis Home Medications ?Medication ?Instructions ?Recorded ?Last Taken ?Type citalopram 20 mg tablet 20 mg PO DAILY DEPRESSION 03/17/14 08/01/23 History multivitamin 1 ea PO DAILY [facility] 05/16/17 08/01/23 History tamsulosin 0.4 mg capsule 0.4 mg PO DAILY PROSTATE 09/04/19 08/01/23 History ascorbic acid (vitamin C) 1,000 mg 1,000 mg PO DAILY SUPPLEMENT 01/18/20 08/01/23 History tablet atorvastatin 10 mg tablet 10 mg PO DAILY CHOLESTEROL 08/25/20 08/01/23 History clopidogrel 75 mg tablet 75 mg PO DAILY BLOOD THINNER 08/25/20 08/01/23 History finasteride 5 mg tablet 5 mg PO DAILY PROSTATE 08/26/20 08/01/23 History hydrochlorothiazide 25 mg tablet 25 mg PO DAILY BLOOD PRESSURE #90 09/20/20 08/01/23 Rx tabs latanoprost 0.005 % eye drops 1 drp ophthalmic (eye) QHS GLAUCOMA 08/01/23 07/31/23 History metoprolol succinate 25 mg 25 mg PO DAILY BLOOD PRESSURE 08/01/23 08/01/23 History tablet,extended release 24 hr omeprazole 40 mg capsule,delayed 40 mg PO DAILY ACID REFLUX 08/01/23 08/01/23 History release trazodone 50 mg tablet 50 mg PO QHS SLEEP 08/01/23 08/01/23 History Lactobacillus acidophilus 1 1,000 mmu cells PO DAILY #30 caps 08/04/23 Unknown Rx billion cell capsule amlodipine 10 mg tablet 5 mg PO DAILY BLOOD PESSURE 02/19/24 Unknown History buspirone 10 mg tablet 10 mg PO TID 02/19/24 Unknown History Allergy/AdvReac Type Severity Reaction Status Date / Time Sulfa (Sulfonamide Allergy Rash Verified 02/19/24 11:13 Antibiotics) lisinopril AdvReac Other Verified 02/19/24 11:13 Family History Father CVA (cerebral vascular accident) Mother CVA (cerebral vascular accident) Hypertension Surgical History History of colonoscopy (12/2019) History of coronary artery stent placement (09/08/19) History of angioplasty of peripheral vessel (08/2017) History of herniorrhaphy History of esophagogastroduodenoscopy (EGD) (12/2019) Social History Smoking Status: Former smoker ROS ROS Narrative GENERAL: denies fever, chills, night sweats, HEENT: denies headache, sinus congestion, RESPIRATORY: denies cough, sputum production, CARDIAC: denies chest pain, palpitations, orthopnea, PND GASTROINTESTINAL: denies abdominal pain, nausea, vomiting, melena, GENITOURINARY: denies dysuria, urgency, frequency, heamaturia EXTREMITY: denies swelling MUSCULOSKELETAL: denies current joint pain or tenderness NEUROLOGIC: denies focal numbness, weakness, tingling HEMATOLOGIC: denies easy bruising and/or hemorrhage INTEGUMENT: denies rashes PSYCHIATRIC: denies suicidal or homicidal ideation Vital Signs Vital Signs Vital Signs: 09/07/24 10:23 09/07/24 10:27 09/07/24 10:34 Temperature 98.1 F Temperature Source Temporal Pulse Rate 85 85 Respiratory Rate 18 18 Respiratory Pattern Blood Pressure 152/82 H 152/82 H Blood Pressure Mean 105 105 Pulse Ox 91 91 Oxygen Delivery Method Room Air Room Air Room Air Oxygen Flow Rate (L/min) Fraction of Inspired Oxygen (FIO2) 09/07/24 10:38 09/07/24 10:38 09/07/24 11:00 Temperature Temperature Source Pulse Rate 86 Respiratory Rate 18 Respiratory Pattern Blood Pressure 142/57 H 156/75 H Blood Pressure Mean 85 102 Pulse Ox 67 Oxygen Delivery Method Room Air Non-Rebreather Oxygen Flow Rate (L/min) 15 Fraction of Inspired Oxygen (FIO2) 09/07/24 11:10 09/07/24 11:18 09/07/24 11:32 Temperature Temperature Source Pulse Rate 82 81 Respiratory Rate 22 H 22 H Respiratory Pattern Tachypnea Tachypnea Blood Pressure Blood Pressure Mean Pulse Ox 95 93 Oxygen Delivery Method Airvo Oxygen Flow Rate (L/min) Fraction of Inspired Oxygen (FIO2) 50 50 40 09/07/24 12:29 09/07/24 12:59 09/07/24 13:03 Temperature 97.3 F L Temperature Source Pulse Rate 94 82 73 Respiratory Rate 19 H 28 H 18 Respiratory Pattern Normal Blood Pressure 119/58 L 158/75 H Blood Pressure Mean 78 102 Pulse Ox 92 92 93 Oxygen Delivery Method Airvo Oxygen Flow Rate (L/min) Fraction of Inspired Oxygen (FIO2) 45 Weight Weight: 68 kg Body Mass Index (BMI) 21.4 Physical Exam Narrative GENERAL: cooperative in no apparent HEENT: Atraumatic; normocephalic EYES; Anicteric, Normal Conjunctiva NECK; supple, normal thyroid, RESPIRATORY: Diminished to auscultation CARDIOVASCULAR: Regular S1 S2, GI: soft, normoactive bowel sounds, : No Renal angle tenderness; EXTREMITIES: No edema, no clubbing, MUSCULOSKELETAL: no muscle wasting NEURO: Awake; no lateralizing signs. SKIN: No Rash PSYCH; Flat affect Results Lab / Micro Data 09/07/24 10:36 09/07/24 10:36 Labs: Laboratory Results - last 24 hr 09/07/24 10:36: WBC 12.7 H, RBC 5.01, Hgb 15.8, Hct 46.6, MCV 93.0, MCH 31.5, MCHC 33.9, RDW Std Deviation 53.0 H, RDW Coeff of Jihan 16.4 H, Plt Count 195, MPV 11.0, Immature Gran % (Auto) 1.200 H, Neut % (Auto) 85.2 H, Lymph % (Auto) 5.8 L, [place] % (Auto) 7.4, Eos % (Auto) 0.1, Baso % (Auto) 0.3, Absolute Neuts (auto) 10.8 H, Absolute Lymphs (auto) 0.74 L, Nucleated RBC % 0, PT 13.6, INR 1.0, APTT 26.5, D-Dimer Quant (PE/DVT) 1.63 H*, Sodium 138, Potassium 3.3 L, Chloride 104, Carbon Dioxide 18.0 L, Anion Gap 16 H, BUN 20 H, Creatinine 1.04, Estim Creat Clear Calc 49.04, Est GFR (MDRD) Af Amer 87, Est GFR (MDRD) Non-Af 72, BUN/Creatinine Ratio 19.2, Glucose 77, Calcium 8.7, Troponin I High Sens 63, B-Natriuretic Peptide 221.1 H 09/07/24 11:04: Urine Color Yellow, Urine Clarity Clear, Urine pH 6.0, Ur Specific [place] 1.010, Urine Protein 30 H, Urine Glucose (UA) Normal, Urine Ketones 5 H, Urine Occult Blood 25 H, Urine Nitrite Negative, Urine Bilirubin Negative, Urine Urobilinogen Normal, Ur Leukocyte Esterase Negative, Urine RBC 0-5 SEEN, Urine WBC 0-5 SEEN, Ur Squamous Epith Cells 0-5 SEEN, Calcium Oxalate Crystal 1+, Urine Bacteria RARE, Hyaline Casts 0-5 SEEN, Urine Mucus 1+ Micro: Microbiology 09/07/24 11:04 Mucosa - Nose SARS-CoV-2, Influenza & RSV (PCR) - Final ABG Data ABG results: ABG 09/07/24 11:20 Specimen Type ART Sample Site R Radial pH 7.38 Bicarbonate Actual 17.0 L Total CO2 18 Base Excess -8 L O2 Saturation 98 O2 % 50.0 ABG pCO2 28.6 L ABG pO2 102 H Christian Test Positive O2 Delivery Device HFNC Vent Mode Not entered Clinical Comments AIRVO 60L Imaging Radiology Impression Brain CT 09/07/24 10:22 IMPRESSION: No CT evidence of acute intracranial pathology. Attempting to contact referring provider At the time of this dictation Reading Location[facility] Chest X-Ray 09/07/24 10:22 IMPRESSION: No acute radiographic process. Reading Location: [facility] Elbow X-Ray 09/07/24 10:23 IMPRESSION: Soft tissue swelling bilaterally. No other acute radiographic process. Reading Location: [facility] CTA 09/07/24 10:23 IMPRESSION: No large vessel flow-limiting stenotic change. 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 One or more dose reduction techniques were used (e.g., Automated exposure control, adjustment of the mA and/or kV according to patient size, use of iterative reconstruction technique). Reading Location: [facility] Elbow X-Ray 09/07/24 11:20 IMPRESSION: Soft tissue swelling bilaterally. No other acute radiographic process. Reading [facility] Assessment & Plan Assessment/Plan (1) Hypoxia: PLAN: Plan Patient is an 88-year-old gentleman admitted admitted with altered mental status found to be significantly hypoxic. 1. Acute metabolic encephalopathy ? Secondary to severe hypoxia. Patient mentation did improve with oxygen supplementation 2. Acute hypoxic respiratory failure ? Etiology not clear patient has underlying history of remote tobacco use. Patient started on bronchodilator treatment, systemic steroid as well as antibiotic therapy. Patient placed on oxygen via Airvo titrated to keep saturation greater than 90. Also ordered for D-dimer. Patient did receive therapeutic dose of Lovenox in the ED. Plan is for patient to undergo CTA if D-dimer is elevated however with patient having received dye for CTA ordered as part of evaluation for his altered mental status plan is to obtain a CTA on 09/08/2024 if patient D-dimer comes back elevated 3. Elevated troponin ? Suspected to be secondary to severe hypoxia given patient previous history of coronary artery disease with PCI was placed on a monitored bed subsequent serial cardiac enzymes ordered 4. Coronary artery disease ? With previous history of PCI patient is on recommended medications including dual antiplatelet therapy statin and beta-blockers 5. Hypertension - Blood pressure controlled, home medications continued with dose adjustment as needed 6. Dyslipidemia -Patient is on statin therapy, continued at home dose 7. BPH with lower urinary obstruction - Patient treated with finasteride 8. GERD -Continue PPI 9. Depression/anxiety -Continue trazodone, citalopram, BuSpar 10. DVT prophylaxis - On enoxaparin Time spent in the patient's overall evaluation,decision-making process, review of diagnostic data, adjustment of management, discussion with other providers, nursing nursing and ancillary staff involved in patient's care documentation, 75 Minutes Advance planning; did discuss with the patient and family regarding advanced directives as well as CODE STATUS. Did explain the various scenarios involved ( FULL CODE, DNR CCA, DNR CCA with no intubation, and DNR CC and what each meant) patient elected to be DNR CCA no intubation. Order was placed. Time spent on discussion 16 minutes. Charges/Coding Multi Select Codes Visit Charges Visit Charges: 42280 Init Hosp Hospitalists' Procedures Procedures: 87327 Advncd Care Plan 30 Min
[2024-09-07] MEDS: Enoxaparin 80 MG/0.8 ML Syringe 70 MG SC (13:31)
[2024-09-07 14:32] LABS: Troponin-I HS 76 pg/mL (3.0-78.0)
[2024-09-07] MEDS: Acetaminophen 325 MG Tablet 650 MG PO ×2 (15:32→21:34)
[2024-09-07] MEDS: Atorvastatin Calcium 10 MG Tablet PO (15:34)
[2024-09-07] MEDS: Clopidogrel Bisulfate 75 MG Tablet PO (15:34)
[2024-09-07] MEDS: Metoprolol(XL)Succ 25 MG Tablet PO (15:34)
[2024-09-07] MEDS: Finasteride 5 MG Tablet PO (15:35)
[2024-09-07] MEDS: amLODIPine 5 MG Tablet PO (15:37)
[2024-09-07] MEDS: Doxycycline 100 MG CAPSULE PO ×2 (15:37→21:01)
[2024-09-07] MEDS: Tamsulosin HCl 0.4 MG Capsule PO (15:38)
[2024-09-07] MEDS: 0.9% Saline Lock 10 ML Syringe IV ×2 (15:39→21:02)
[2024-09-07 16:40] LABS: Troponin-I HS 68 pg/mL (3.0-78.0)
[2024-09-07] MEDS: Ipratropium/Albuterol Sulfate 3 ML AMPUL.NEB INHALATION ×2 (19:13→23:27)
[2024-09-07] MEDS: MELATONIN 3 MG TABLET PO (21:34)
[2024-09-08] VITALS (11 sets, daily range): BP systolic 132–147; BP diastolic 65–82; PULSE 63–85; RESP 18–22; TEMP 36.5–36.7; O2SAT 91–96; BMI 23.0
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
[2024-09-08] MEDS: Ipratropium/Albuterol Sulfate 3 ML AMPUL.NEB INHALATION ×5 (02:32→19:20)
[2024-09-08] MEDS: 0.9% Saline Lock 10 ML Syringe IV ×2 (05:22→22:20)
[2024-09-08 06:35] LABS: Absolute Lymphocyte Count 0.32 X10^3/uL (0.83-4.51); Absolute Neutrophil Count 7.4 X10^3/uL (2.0-7.7); Basophil# 0.01 X10^3/uL; Basophil% 0.1 % (0-1); Hematocrit 42.9 % (40-54); Hemoglobin 15.4 g/dL (13.0-16.5); Lymphocyte # 0.32 X10^3/ul (0.83-4.51); Lymphocyte % 4.1 % (19-41); Mean Corp Hgb Conc 35.9 g/dL (32-36); Mean Corpuscular Hgb 33.1 pg (27.0-32.0); Mean Corpuscular Volume 92.3 fL (80-94); Mean Platelet Vol. 11.6 fl (6.2-12.0); Monocyte# 0.16 X10^3/uL; NRBC Flagged by Analyzer 0 % (0-5); Neutrophil # 7.35 X10^3/uL (2.7-7.7); POSITIVE DIFFERENTIAL YES; Platelet Count 183 K/mm3 (150-450); RBC Distribution Width SD 52.6 fl (35.1-43.9); Red Blood Count 4.65 M/mm3 (4.6-6.2); White Blood Count 7.9 K/mm3 (4.4-11.0)
[2024-09-08 06:58] LABS: Anion Gap 11 (5-15); BUN 27 mg/dL (7-18); Calcium,Total 8.6 mg/dL (8.5-10.1); Chloride 106 mmol/L (98-107); Creatinine, Serum 0.82 mg/dL (0.70-1.30); EST Glomerular Filtration Rate 95 mL/min (>60); Est Glom Filt Rate - Afr Amer 115 mL/min (>60); Estimated Creatinine Clearance 66.59 ml/min; Glucose 150 mg/dL (74-106); Magnesium 1.8 mg/dL (1.6-2.6); Phosphorus 3.9 mg/dL (2.5-4.9); Potassium 3.2 mmol/L (3.5-5.1); Sodium Level 138 mmol/L (136-145)
[2024-09-08] MEDS: Pantoprazole Sodium 40 MG Tablet PO (08:54)
[2024-09-08] MEDS: Clopidogrel Bisulfate 75 MG Tablet PO (08:54)
[2024-09-08] MEDS: Citalopram 20 MG Tablet PO (08:54)
[2024-09-08] MEDS: Metoprolol(XL)Succ 25 MG Tablet PO (08:54)
[2024-09-08] MEDS: amLODIPine 5 MG Tablet PO (08:54)
[2024-09-08] MEDS: predniSONE 20 MG Tablet 40 MG PO (08:54)
[2024-09-08] MEDS: Finasteride 5 MG Tablet PO (08:55)
[2024-09-08] MEDS: Tamsulosin HCl 0.4 MG Capsule PO (08:55)
[2024-09-08] MEDS: Atorvastatin Calcium 10 MG Tablet PO (08:55)
[2024-09-08] MEDS: Enoxaparin 40 MG/0.4 ML Syringe SC (08:55)
[2024-09-08] MEDS: Doxycycline 100 MG CAPSULE PO (08:55)
--- NOTE | 2024-09-08 09:16 | PN.HOSP_ITS ---
Reason for Visit Reason for Visit: Diagnoses Hypoxemia (09/07/24) Subjective Subjective Feels well. No events overnight. Objective Data Objective Data Vital Signs: Vital Signs Temp Pulse Resp BP Pulse Ox O2 Del Method O2 Flow Rate 36.5 C L 85 18 132/71 H 95 Airvo 55 09/08/24 03:30 09/08/24 08:54 09/08/24 07:33 09/08/24 03:30 09/08/24 07:33 09/08/24 08:00 09/08/24 08:00 FiO2 45 09/08/24 07:33 Oxygen Flow Rate (L/min) 55 Oxygen Delivery Method Airvo Weight: 72.8 kg Body Mass Index (BMI) 23.0 Intake & Output: Intake and Output for Last 24 Hours 09/06/24 09/07/24 09/08/24 23:59 23:59 23:59 Intake Total 340 / 340 Output Total 850 / 850 400 / 400 Balance -510 / -510 -400 / -400 Lab / Micro Data 09/08/24 05:25 09/08/24 05:25 Labs: Laboratory Results - last 24 hr 09/07/24 10:36: WBC 12.7 H, RBC 5.01, Hgb 15.8, Hct 46.6, MCV 93.0, MCH 31.5, MCHC 33.9, RDW Std Deviation 53.0 H, RDW Coeff of Jihan 16.4 H, Plt Count 195, MPV 11.0, Immature Gran % (Auto) 1.200 H, Neut % (Auto) 85.2 H, Lymph % (Auto) 5.8 L , [place] % (Auto) 7.4, Eos % (Auto) 0.1, Baso % (Auto) 0.3, Absolute Neuts (auto) 10.8 H, Absolute Lymphs (auto) 0.74 L, Nucleated RBC % 0, PT 13.6, INR 1.0, APTT 26.5, D-Dimer Quant (PE/DVT) 1.63 H*, Sodium 138, Potassium 3.3 L, Chloride 104, Carbon Dioxide 18.0 L, Anion Gap 16 H, BUN 20 H, Creatinine 1.04, Estim Creat Clear Calc 49.04, Est GFR (MDRD) Af Amer 87, Est GFR (MDRD) Non-Af 72, BUN/Creatinine Ratio 19.2, Glucose 77, Calcium 8.7, Troponin I High Sens 63, B- Natriuretic Peptide 221.1 H 09/07/24 11:04: Urine Color Yellow, Urine Clarity Clear, Urine pH 6.0, Ur Specific [place] 1.010, Urine Protein 30 H, Urine Glucose (UA) Normal, Urine Ketones 5 H, Urine Occult Blood 25 H, Urine Nitrite Negative, Urine Bilirubin Negative, Urine Urobilinogen Normal, Ur Leukocyte Esterase Negative, Urine RBC 0-5 SEEN, Urine WBC 0-5 SEEN, Ur Squamous Epith Cells 0-5 SEEN, Calcium Oxalate Crystal 1+, Urine Bacteria RARE, Hyaline Casts 0-5 SEEN, Urine Mucus 1+ 09/07/24 14:00: Troponin I High Sens 76 09/07/24 16:15: Troponin I High Sens 68 09/08/24 05:25: WBC 7.9, RBC 4.65, Hgb 15.4, Hct 42.9, MCV 92.3, MCH 33.1 H, M CHC 35.9 D, RDW Std Deviation 52.6 H, RDW Coeff of Jihan 16.0 H, Plt Count 183, MPV 11.6, Immature Gran % (Auto) 0.800, Neut % (Auto) 93.0 H, Lymph % (Auto) 4.1 L, [place] % (Auto) 2.0, Eos % (Auto) 0.0, Baso % (Auto) 0.1, Absolute Neuts (auto) 7.4, Absolute Lymphs (auto) 0.32 L, Nucleated RBC % 0, Sodium 138, Potassium 3.2 L, Chloride 106, Carbon Dioxide 22.0, Anion Gap 11, BUN 27 H, Creatinine 0.82, Estim Creat Clear Calc 66.59, Est GFR (MDRD) Af Amer 115, Est GFR (MDRD) Non-Af 95, BUN/Creatinine Ratio 33.0 H, Glucose 150 H, Calcium 8.6, Phosphorus 3.9, Magnesium 1.8 Micro: Microbiology 09/07/24 14:05 Mucosa - Nasopharyngeal Respiratory Panel (PCR) - Final 09/07/24 11:04 Mucosa - Nose SARS-CoV-2, Influenza & RSV (PCR) - Final ABG Data ABG results: ABG 09/07/24 11:20 Specimen Type ART Sample Site R Radial pH 7.38 Bicarbonate Actual 17.0 L Total CO2 18 Base Excess -8 L O2 Saturation 98 O2 % 50.0 ABG pCO2 28.6 L ABG pO2 102 H Christian Test Positive O2 Delivery Device HFNC Vent Mode Not entered Clinical Comments AIRVO 60L Radiography Diagnostic Testing: Radiology Impression Brain CT 09/07/24 10:22 IMPRESSION: No CT evidence of acute intracranial pathology. Attempting to contact referring provider At the time of this dictation Reading Location: [facility] Chest X-Ray 09/07/24 10:22 IMPRESSION: No acute radiographic process. Reading Location: [facility] Elbow X-Ray 09/07/24 10:23 IMPRESSION: Soft tissue swelling bilaterally. No other acute radiographic process. Reading [facility] Head[facility]Neck [facility]A 09/07/24 10:23 IMPRESSION: No large vessel flow-limiting stenotic change. 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 One or more dose reduction techniques were used (e.g., Automated exposure control, adjustment of the mA and/or kV according to patient size, use of iterative reconstruction technique). Reading Location: [facility] Elbow X-Ray 09/07/24 11:20 IMPRESSION: Soft tissue swelling bilaterally. No other acute radiographic process. Reading Location: [facility] Physical Exam Const alert and no apparent distress Constitutional Narrative: on Airvo. No respiratory distress. No conversational dyspnea. HEENT head/scalp atraumatic Eyes Eyes Narrative: glasses. No icterus. Neck no lymphadenopathy Neck Narrative: +JVD Resp Resp Narrative: coarse breath sounds bilaterally. Cardio regular rate, regular rhythm, S1 normal heart sound and S2 normal heart sound GI normal to inspection, nondistended, normoactive bowel sounds, soft to palpation, non-tender and non-distended Neuro oriented x3 Sensorium / Orientation: awake and alert Assessment & Plan Assessment/Plan (1) Hypoxia: PLAN: Plan Acute metabolic encephalopathy * Resolved. * Secondary to severe hypoxia. 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 * Neurology recommending MRI head w/o contrast, TTE, therapy evals. Acute hypoxic respiratory failure * Patient started on bronchodilator treatment, systemic steroid as well as antibiotic therapy. * Patient placed on oxygen via Airvo titrated to keep saturation greater than 90. * D-dimer 1.63. Check CTA shows infiltrates, more prominent on the right. No PE * on duonebs, prednisone * change abx from doxy to CTX and azithromycin. * will give furosemide x1. Suspected pneumococcal pneumonia * CTX and azithromycin * check Strep and Legionella antigens. Check sputum cultures Elevated troponin * though WNL. Likely due to demand ischemia. No additional work up at this time. Chronic conditions * Coronary artery disease? With previous history of PCI patient is on recommended medications including dual antiplatelet therapy statin and beta- blockers * Hypertension- Blood pressure controlled, home medications continued with dose adjustment as needed * Dyslipidemia-Patient is on statin therapy, continued at home dose * BPH with lower urinary obstruction- Patient treated with finasteride * GERD-Continue PPI * Depression/anxiety-Continue trazodone, citalopram, BuSpar DVT prophylaxis- On enoxaparin Charges/Coding Visit Charges Inpatient E&M: 04724 Subs Hosp L2
--- NOTE | 2024-09-08 09:24 | CT_ITS ---
PROCEDURE: CTA CHEST W/WO CONTRAST REASON FOR EXAM: Hypoxia. TECHNIQUE: CTA imaging of the chest with intravenous contrast. 3D reconstructions. CONTRAST: 100 cc of Isovue 370. COMPARISON: Comparison is made with prior chest radiograph dated September 07, 2024. FINDINGS: Hardware: None. Lymph nodes: Small mediastinal lymph nodes. Heart: Normal heart size. No pericardial effusion. Coronary artery calcification. Thoracic Aorta: Atherosclerotic plaques. No aneurysm or dissection. Pulmonary Vessels: No large central filling defects. Contrast timing was optimized for evaluation of the aorta. Lungs and Airways: Bibasilar pulmonary infiltrates more prominent at the right lung base superimposed on mild degree of emphysema. Hyperinflation. Patchy infiltrate in the posterior segment of the right upper lobe. Pleura: No pleural effusion. No pneumothorax. Upper Abdomen: Small left renal cyst. Bones: Degenerative changes of the thoracic spine. CT/CTA Chest W/WO Contrast IMPRESSION: No evidence of pulmonary embolism. Patchy bibasilar infiltrates worse on the right side and patchy infiltrate in t he posterior segment of the right upper lobe. One or more dose reduction techniques were used (e.g., Automated exposure contr ol, adjustment of the mA and/or kV according to patient size, use of iterative reconstruction technique). Reading Location: [place] [id number]
--- NOTE | 2024-09-08 14:06 | ECHOL_ITS ---
Reason For Study ECHO/Echo, Limited Study Interpretation Summary Normal LV size. Left ventricular systolic function is normal. The left ventricular ejection fraction is 55 %. Pulmonary artery systolic pressure is 86 mmHg. Severe pulmonary hypertension. Moderately severe (3+) tricuspid valve insufficiency. Ordering Physician: Lester Perdomo Referring Physician: ALEXA SEGAL Performed By: Cynthia Alonzo RCS
[2024-09-08] MEDS: Ceftriaxone 1 GM/50 ML BAG IV (15:13)
[2024-09-08] MEDS: Azithromycin 500 MG in 0.9% Normal Saline (250mL Bag) 250 ML 255 MG IV (15:54)
--- NOTE | 2024-09-08 16:06 | CHAPLAIN ---
Type of Pastoral Visit _x__ Initial Visit ___ Follow-up Visit ___ On-call Visit ___ General Patient Visit ___ Spiritual Assessment ___ Family Conference ___ Bereavement ___ Rapid Response ___ Code Blue ___ Other (describe below) Pastoral Care Referral From _x__ Patient ___ Family ___ Nurse ___ Physician ___ Revenue Investigator ___ Optometric Technician ___ Other (describe below) Sacrament/Intervention _x__ Active listening ___ Anointing ___ Congregational ___ Bereavement ___ Communion _x__ Vicki exploration ___ ___ Life review _x__ Prayer ___ Reconciliation ___ Sacrament of Sick ___ Supportive presence ___ Wedding ___ Other (describe below) Pastoral Comments patient is alert and states his recent health issues; pt acknowledges that he was getting pretty sick and that coming to hospital was good; pt admits that he does not know much yet and is hoping for news soon; pt gives review of his vicki connections which as an adult included faithful attendance for the [employer]; pt welcomes a prayer
[2024-09-08] MEDS: Ensure Plus High Protein 120 ML LIQUID PO (17:53)
[2024-09-08] MEDS: Furosemide 40 MG/4 ML Vial IV (17:53)
[2024-09-09] VITALS (15 sets, daily range): BP systolic 143–178; BP diastolic 64–90; PULSE 57–78; RESP 15–24; TEMP 36.1–36.6; O2SAT 83–96; BMI 22.6
[2024-09-09 04:03] LABS: Absolute Lymphocyte Count 0.57 X10^3/uL (0.83-4.51); Absolute Neutrophil Count 15.4 X10^3/uL (2.0-7.7); Basophil# 0.02 X10^3/uL; Basophil% 0.1 % (0-1); Hematocrit 43.3 % (40-54); Hemoglobin 14.4 g/dL (13.0-16.5); Lymphocyte # 0.57 X10^3/ul (0.83-4.51); Lymphocyte % 3.3 % (19-41); Mean Corp Hgb Conc 33.3 g/dL (32-36); Mean Corpuscular Hgb 31.4 pg (27.0-32.0); Mean Corpuscular Volume 94.5 fL (80-94); Mean Platelet Vol. 11.4 fl (6.2-12.0); Monocyte# 1.25 X10^3/uL; Monocyte% 7.2 % (0-10); NRBC Flagged by Analyzer 0 % (0-5); Neutrophil # 15.43 X10^3/uL (2.7-7.7); Neutrophil % 88.7 % (47-70); POSITIVE DIFFERENTIAL YES; Platelet Count 178 K/mm3 (150-450); RBC Distribution Width CV 16.6 % (11.6-14.6); RBC Distribution Width SD 56.1 fl (35.1-43.9); Red Blood Count 4.58 M/mm3 (4.6-6.2); White Blood Count 17.4 K/mm3 (4.4-11.0)
[2024-09-09 04:42] LABS: Anion Gap 8 (5-15); BUN 33 mg/dL (7-18); BUN/Creat Ratio 35.1 RATIO (10-20); Calcium,Total 8.4 mg/dL (8.5-10.1); Chloride 107 mmol/L (98-107); Creatinine, Serum 0.94 mg/dL (0.70-1.30); EST Glomerular Filtration Rate 81 mL/min (>60); Est Glom Filt Rate - Afr Amer 98 mL/min (>60); Estimated Creatinine Clearance 57.13 ml/min; Glucose 146 mg/dL (74-106); Potassium 3.2 mmol/L (3.5-5.1); Sodium Level 139 mmol/L (136-145)
[2024-09-09] MEDS: Ipratropium/Albuterol Sulfate 3 ML AMPUL.NEB INHALATION ×4 (07:08→18:49)
[2024-09-09] MEDS: Enoxaparin 40 MG/0.4 ML Syringe SC (08:30)
[2024-09-09] MEDS: predniSONE 20 MG Tablet 40 MG PO (08:30)
[2024-09-09] MEDS: Metoprolol(XL)Succ 25 MG Tablet PO (08:30)
[2024-09-09] MEDS: Finasteride 5 MG Tablet PO (08:30)
[2024-09-09] MEDS: Pantoprazole Sodium 40 MG Tablet PO (08:30)
[2024-09-09] MEDS: Tamsulosin HCl 0.4 MG Capsule PO (08:31)
[2024-09-09] MEDS: Atorvastatin Calcium 10 MG Tablet PO (08:31)
[2024-09-09] MEDS: Citalopram 20 MG Tablet PO (08:31)
[2024-09-09] MEDS: Clopidogrel Bisulfate 75 MG Tablet PO (08:31)
[2024-09-09] MEDS: amLODIPine 5 MG Tablet PO (08:31)
[2024-09-09] MEDS: Ceftriaxone 1 GM/50 ML BAG IV (08:42)
[2024-09-09] MEDS: Ensure Plus High Protein 120 ML LIQUID PO ×3 (08:49→18:01)
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
[2024-09-09] MEDS: Azithromycin 500 MG in 0.9% Normal Saline (250mL Bag) 250 ML 255 MG IV (10:19)
[2024-09-09] MEDS: traZODone 50 MG Tablet PO (21:02)
[2024-09-09] MEDS: 0.9% Saline Lock 10 ML Syringe IV (21:07)
[2024-09-10] VITALS (14 sets, daily range): BP systolic 138–182; BP diastolic 70–83; PULSE 53–72; RESP 14–22; TEMP 36.4–36.6; O2SAT 92–100; BMI 22.6
[2024-09-10] MEDS: 0.9% Saline Lock 10 ML Syringe IV ×3 (05:33→17:55)
[2024-09-10] MEDS: Ipratropium/Albuterol Sulfate 3 ML AMPUL.NEB INHALATION ×4 (06:34→18:05)
--- NOTE | 2024-09-10 07:19 | PN.HOSP_ITS ---
Reason for Visit Reason for Visit: Diagnoses Hypoxemia (09/07/24) Objective Data Objective Data Vital Signs: Vital Signs Temp Pulse Resp BP Pulse Ox O2 Del Method O2 Flow Rate 36.5 C L 59 L 18 160/70 H 93 Airvo 40 09/10/24 03:42 09/10/24 06:35 09/10/24 06:35 09/10/24 03:42 09/10/24 06:35 09/10/24 06:35 09/10/24 06:35 FiO2 41 09/10/24 06:35 Oxygen Flow Rate (L/min) 40 Oxygen Delivery Method Airvo Weight: 71.5 kg Body Mass Index (BMI) 22.6 Intake & Output: Intake and Output for Last 24 Hours 09/08/24 09/09/24 09/10/24 23:59 23:59 23:59 Intake Total 545 / 665 1205 / 1325 180 / 180 Output Total 650 / 650 2000 / 2000 250 / 250 Balance -105 / 15 -795 / -675 -70 / -70 Lab / Micro Data 09/09/24 03:40 09/09/24 03:40 Micro: Microbiology 09/09/24 16:06 Urine, Clean Catch Streptococcus pneumoniae Antigen (M - Final 09/09/24 16:06 Urine, Clean Catch Legionella Antigen - Final 09/07/24 14:05 Mucosa - Nasopharyngeal Respiratory Panel (PCR) - Final 09/07/24 11:04 Mucosa - Nose SARS-CoV-2, Influenza & RSV (PCR) - Final Radiography Diagnostic Testing: Radiology Impression Echocardiogram 09/08/24 14:06 Interpretation Summary Normal LV size. Left ventricular systolic function is normal. The left ventricular ejection fraction is 55 %. Pulmonary artery systolic pressure is 86 mmHg. Severe pulmonary hypertension. Moderately severe (3+) tricuspid valve insufficiency. Ordering Physician: Lester Perdomo Referring Physician: ALEXA SEGAL Performed By: Cynthia Alonzo RCS Assessment & Plan Assessment/Plan (1) Hypoxia: PLAN: Plan Acute metabolic encephalopathy * Resolved. * Secondary to severe hypoxia. 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 * Neurology recommending MRI head w/o contrast. Pt requesting something to calm him for the MRI. I feel it would be of low utility as risky with sedation while on Airvo. No further testing as I do not feel he had headaches. Acute hypoxic respiratory failure * Patient started on bronchodilator treatment, systemic steroid as well as antibiotic therapy. * Patient placed on oxygen via Airvo titrated to keep saturation greater than 90. * D-dimer 1.63. Check CTA shows infiltrates, more prominent on the right. No PE * on duonebs, change prednisone to methylprednisone. * change abx from doxy to CTX and azithromycin. Suspected pneumococcal pneumonia * CTX and azithromycin * Strep and Legionella antigens pending. Check sputum cultures Elevated troponin * though WNL. Likely due to demand ischemia. No additional work up at this time. Chronic conditions * Coronary artery disease? 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
--- NOTE | 2024-09-10 07:19 | PCM.PN.HOSP ---
Reason for Visit Reason for Visit: Diagnoses Hypoxemia (09/07/24) Subjective Subjective Still on Airvo. Objective Data Objective Data Vital Signs: Vital Signs Temp Pulse Resp BP Pulse Ox O2 Del Method O2 Flow Rate 36.5 C L 59 L 18 160/70 H 93 Airvo 40 09/10/24 03:42 09/10/24 06:35 09/10/24 06:35 09/10/24 03:42 09/10/24 06:35 09/10/24 06:35 09/10/24 06:35 FiO2 41 09/10/24 06:35 Oxygen Flow Rate (L/min) 40 Oxygen Delivery Method Airvo Weight: 71.5 kg Body Mass Index (BMI) 22.6 Intake & Output: Intake and Output for Last 24 Hours 09/08/24 09/09/24 09/10/24 23:59 23:59 23:59 Intake Total 545 / 665 1205 / 1325 180 / 180 Output Total 650 / 650 2000 / 2000 250 / 250 Balance -105 / 15 -795 / -675 -70 / -70 Lab / Micro Data 09/10/24 06:25 09/10/24 06:25 Micro: Microbiology 09/09/24 16:06 Urine, Clean Catch Streptococcus pneumoniae Antigen (M - Final 09/09/24 16:06 Urine, Clean Catch Legionella Antigen - Final 09/07/24 14:05 Mucosa - Nasopharyngeal Respiratory Panel (PCR) - Final 09/07/24 11:04 Mucosa - Nose SARS-CoV-2, Influenza & RSV (PCR) - Final Radiography Diagnostic Testing: Radiology Impression Echocardiogram 09/08/24 14:06 Interpretation Summary Normal LV size. Left ventricular systolic function is normal. The left ventricular ejection fraction is 55 %. Pulmonary artery systolic pressure is 86 mmHg. Severe pulmonary hypertension. Moderately severe (3+) tricuspid valve insufficiency. Ordering Physician: Lester Perdomo Referring Physician: ALEXA SEGAL Performed By: Widder, Cynthia, RCS Physical Exam Const Constitutional Narrative: on Airvo. No respiratory distress. No conversational dyspnea. HEENT head/scalp atraumatic and moist oral mucous membranes Resp Resp Narrative: coarse BS bilaterally. Cardio regular rate, regular rhythm, S1 normal heart sound and S2 normal heart sound GI normal to inspection, nondistended, normoactive bowel sounds, soft to palpation, non-tender and non-distended Extremity normal to inspection and full ROM Neuro Sensorium / Orientation: awake and alert Assessment & Plan Assessment/Plan (1) Hypoxia: PLAN: Plan Acute metabolic encephalopathy Resolved. Secondary to severe hypoxia. 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 Neurology recommending MRI head w/o contrast. Pt requesting something to calm him for the MRI. I feel it would be of low utility as risky with sedation while on Airvo. No further testing as I do not feel he had headaches. Acute hypoxic respiratory failure Patient started on bronchodilator treatment, systemic steroid as well as antibiotic therapy. Patient placed on oxygen via Airvo titrated to keep saturation greater than 90. D-dimer 1.63. Check CTA shows infiltrates, more prominent on the right. No PE on duonebs, change prednisone to methylprednisone. change abx from doxy to CTX and azithromycin. Furosemide challenge given lack of improvement. Suspected pneumococcal pneumonia CTX and azithromycin Strep and Legionella antigens pending. Check sputum cultures Elevated troponin though WNL. Likely due to demand ischemia. No additional work up at this time. Chronic conditions Coronary artery disease? 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
[2024-09-10 07:24] LABS: Absolute Lymphocyte Count 0.39 X10^3/uL (0.83-4.51); Absolute Neutrophil Count 10.7 X10^3/uL (2.0-7.7); Basophil# 0.02 X10^3/uL; Basophil% 0.2 % (0-1); Hematocrit 43.4 % (40-54); Hemoglobin 14.7 g/dL (13.0-16.5); Lymphocyte # 0.39 X10^3/ul (0.83-4.51); Lymphocyte % 3.3 % (19-41); Mean Corp Hgb Conc 33.9 g/dL (32-36); Mean Corpuscular Hgb 32.3 pg (27.0-32.0); Mean Corpuscular Volume 95.4 fL (80-94); Mean Platelet Vol. 11.9 fl (6.2-12.0); Monocyte% 4.3 % (0-10); NRBC Flagged by Analyzer 0 % (0-5); Neutrophil # 10.71 X10^3/uL (2.7-7.7); POSITIVE DIFFERENTIAL YES; Platelet Count 166 K/mm3 (150-450); RBC Distribution Width CV 16.5 % (11.6-14.6); RBC Distribution Width SD 57.2 fl (35.1-43.9); Red Blood Count 4.55 M/mm3 (4.6-6.2); White Blood Count 11.8 K/mm3 (4.4-11.0)
[2024-09-10 07:51] LABS: Anion Gap 5 (5-15); BUN 29 mg/dL (7-18); BUN/Creat Ratio 37.5 RATIO (10-20); Calcium,Total 8.9 mg/dL (8.5-10.1); Chloride 111 mmol/L (98-107); Creatinine, Serum 0.77 mg/dL (0.70-1.30); EST Glomerular Filtration Rate 101 mL/min (>60); Est Glom Filt Rate - Afr Amer 122 mL/min (>60); Estimated Creatinine Clearance 67.03 ml/min; Glucose 132 mg/dL (74-106); Potassium 3.7 mmol/L (3.5-5.1); Sodium Level 142 mmol/L (136-145)
[2024-09-10] MEDS: Ceftriaxone 1 GM/50 ML BAG IV (10:01)
[2024-09-10] MEDS: Finasteride 5 MG Tablet PO (10:09)
[2024-09-10] MEDS: Citalopram 20 MG Tablet PO (10:09)
[2024-09-10] MEDS: Tamsulosin HCl 0.4 MG Capsule PO (10:09)
[2024-09-10] MEDS: Enoxaparin 40 MG/0.4 ML Syringe SC (10:09)
[2024-09-10] MEDS: Clopidogrel Bisulfate 75 MG Tablet PO (10:10)
[2024-09-10] MEDS: Metoprolol(XL)Succ 25 MG Tablet PO (10:10)
[2024-09-10] MEDS: amLODIPine 5 MG Tablet PO (10:10)
[2024-09-10] MEDS: Pantoprazole Sodium 40 MG Tablet PO (10:10)
[2024-09-10] MEDS: Atorvastatin Calcium 10 MG Tablet PO (10:11)
[2024-09-10] MEDS: Acetaminophen 325 MG Tablet 650 MG PO (10:57)
[2024-09-10] MEDS: Azithromycin 500 MG in 0.9% Normal Saline (250mL Bag) 250 ML 255 MG IV (10:57)
[2024-09-10] MEDS: Ensure Plus High Protein 120 ML LIQUID PO ×2 (11:07→16:28)
[2024-09-10] MEDS: Furosemide 40 MG/4 ML Vial IV (17:55)
[2024-09-10] MEDS: hydrALAZINE 20 MG/ML Vial 10 MG IV (22:03)
[2024-09-10] MEDS: traZODone 50 MG Tablet PO (22:05)
[2024-09-11] VITALS (12 sets, daily range): BP systolic 126–169; BP diastolic 64–94; PULSE 54–79; RESP 16–23; TEMP 36.4–36.6; O2SAT 94–100; BMI 22.6
[2024-09-11] MEDS: Ipratropium/Albuterol Sulfate 3 ML AMPUL.NEB INHALATION ×3 (07:15→15:11)
[2024-09-11 07:23] LABS: Absolute Lymphocyte Count 0.43 X10^3/uL (0.83-4.51); Absolute Neutrophil Count 11.6 X10^3/uL (2.0-7.7); Basophil# 0.01 X10^3/uL; Basophil% 0.1 % (0-1); Hematocrit 44.9 % (40-54); Hemoglobin 14.8 g/dL (13.0-16.5); Lymphocyte # 0.43 X10^3/ul (0.83-4.51); Lymphocyte % 3.4 % (19-41); Mean Corpuscular Hgb 31.5 pg (27.0-32.0); Mean Corpuscular Volume 95.5 fL (80-94); Mean Platelet Vol. 11.3 fl (6.2-12.0); Monocyte# 0.52 X10^3/uL; Monocyte% 4.1 % (0-10); NRBC Flagged by Analyzer 0 % (0-5); Neutrophil # 11.62 X10^3/uL (2.7-7.7); Neutrophil % 90.8 % (47-70); POSITIVE DIFFERENTIAL YES; Platelet Count 156 K/mm3 (150-450); RBC Distribution Width CV 16.1 % (11.6-14.6); White Blood Count 12.8 K/mm3 (4.4-11.0)
--- NOTE | 2024-09-11 08:00 | PCM.PN.HOSP ---
Reason for Visit Reason for Visit: Diagnoses Hypoxemia (09/07/24) Subjective Subjective Still with chest pain related to recent falls. Hard to take in a deep breath. Objective Data Objective Data Vital Signs: Vital Signs Temp Pulse Resp BP Pulse Ox O2 Del Method O2 Flow Rate 36.6 C 58 L 23 H 163/79 H 98 Airvo 50 09/11/24 03:00 09/11/24 03:00 09/11/24 03:00 09/11/24 03:00 09/11/24 03:00 09/11/24 03:00 09/11/24 03:00 FiO2 48 09/11/24 03:00 Oxygen Flow Rate (L/min) 50 Oxygen Delivery Method Airvo Weight: 71.6 kg Body Mass Index (BMI) 22.6 Intake & Output: Intake and Output for Last 24 Hours 09/09/24 09/10/24 09/11/24 23:59 23:59 23:59 Intake Total 1205 / 1325 965 / 1365 400 / 400 Output Total 1999 / 1999 650 / 1800 1150 / 1150 Balance -795 / -675 315 / -435 -750 / -750 Lab / Micro Data 09/11/24 06:49 09/10/24 06:25 Labs: Laboratory Results - last 24 hr 09/11/24 06:49: WBC 12.8 H, RBC 4.70, Hgb 14.8, Hct 44.9, MCV 95.5 H, MCH 31.5, MCHC 33.0, RDW Std Deviation 57.0 H, RDW Coeff of Jihan 16.1 H, Plt Count 156, MPV 11.3, Immature Gran % (Auto) 1.600 H, Neut % (Auto) 90.8 H, Lymph % (Auto) 3.4 L, [place] % (Auto) 4.1, Eos % (Auto) 0.0, Baso % (Auto) 0.1, Absolute Neuts (auto) 11.6 H, Absolute Lymphs (auto) 0.43 L, Nucleated RBC % 0 Micro: Microbiology 09/09/24 14:13 Sputum, Expectorated/Coughed Gram Stain - Final 09/09/24 16:06 Urine, Clean Catch Streptococcus pneumoniae Antigen (M - Final 09/09/24 16:06 Urine, Clean Catch Legionella Antigen - Final 09/07/24 14:05 Mucosa - Nasopharyngeal Respiratory Panel (PCR) - Final 09/07/24 11:04 Mucosa - Nose SARS-CoV-2, Influenza & RSV (PCR) - Final Physical Exam Const alert and no apparent distress HEENT head/scalp atraumatic and moist oral mucous membranes Resp normal respiratory effort, no retractions, no use of accessory muscles and clear to auscultation bilaterally Cardio regular rate, regular rhythm, S1 normal heart sound and S2 normal heart sound GI normal to inspection, nondistended, normoactive bowel sounds, soft to palpation, non-tender and non-distended Neuro Sensorium / Orientation: awake and alert Assessment & Plan Assessment/Plan (1) Hypoxia: PLAN: Plan Acute metabolic encephalopathy Resolved. Secondary to severe hypoxia. 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 Neurology recommending MRI head w/o contrast. Pt requesting something to calm him for the MRI. I feel it would be of low utility as risky with sedation while on Airvo. No further testing as I do not feel he had headaches. Acute hypoxic respiratory failure Patient started on bronchodilator treatment, systemic steroid as well as antibiotic therapy. Patient placed on oxygen via Airvo titrated to keep saturation greater than 90. D-dimer 1.63. CTA shows infiltrates, more prominent on the right. No PE on duonebs, change prednisone to methylprednisone. change abx now to pip/tazo and vanc Furosemide challenge given lack of improvement. Suspected pneumococcal pneumonia CTX and azithromycin Strep and Legionella antigens negative. Check sputum cultures Elevated troponin though WNL. Likely due to demand ischemia. No additional work up at this time. Chronic conditions Coronary artery disease? 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
[2024-09-11] MEDS: Tamsulosin HCl 0.4 MG Capsule PO (09:11)
[2024-09-11] MEDS: amLODIPine 5 MG Tablet PO (09:11)
[2024-09-11] MEDS: Metoprolol(XL)Succ 25 MG Tablet PO (09:12)
[2024-09-11] MEDS: Atorvastatin Calcium 10 MG Tablet PO (09:12)
[2024-09-11] MEDS: Finasteride 5 MG Tablet PO (09:12)
[2024-09-11] MEDS: Citalopram 20 MG Tablet PO (09:12)
[2024-09-11] MEDS: Clopidogrel Bisulfate 75 MG Tablet PO (09:12)
[2024-09-11] MEDS: Pantoprazole Sodium 40 MG Tablet PO (09:12)
[2024-09-11] MEDS: Enoxaparin 40 MG/0.4 ML Syringe SC (09:13)
[2024-09-11] MEDS: 0.9% Saline Lock 10 ML Syringe IV ×6 (09:13→22:52)
[2024-09-11] MEDS: Furosemide 40 MG/4 ML Vial IV ×2 (09:13→18:21)
[2024-09-11] MEDS: Ceftriaxone 1 GM/50 ML BAG IV (09:14)
[2024-09-11] MEDS: Azithromycin 500 MG in 0.9% Normal Saline (250mL Bag) 250 ML 255 MG IV (10:05)
[2024-09-11] MEDS: Vancomycin HCl 1,750 MG in 0.9% Normal Saline (500mL Bag) 500 ML 250 MG IV (15:30)
--- NOTE | 2024-09-11 15:37 | PCM.RX.CS ---
Consult Antibiotic Management Pharmacy has been consulted to manage selected antibiotic: Vancomycin Type of Intervention Type of Consult: Follow-up Suspected Infection Suspected Infection: Pneumonia Prior Doses of Antibiotics Prior Doses of Antibiotics Received/Current Regimen: Vancomycin 1750 mg IV x 1 given 09/11/24 @ 1530 Labs Labs: Sodium 142 mmol/L (136-145) 09/10/24 06:25 Potassium 3.7 mmol/L (3.5-5.1) 09/10/24 06:25 Chloride 111 mmol/L (98-107) H 09/10/24 06:25 Carbon Dioxide 27.0 mmol/L (21.0-32.0) 09/10/24 06:25 Anion Gap 5 (5-15) 09/10/24 06:25 BUN 29 mg/dL (7-18) H 09/10/24 06:25 Creatinine 0.77 mg/dL (0.70-1.30) 09/10/24 06:25 Est GFR (MDRD) Af Amer 122 mL/min (>60) 09/10/24 06:25 Est GFR (MDRD) Non-Af 101 mL/min (>60) 09/10/24 06:25 BUN/Creatinine Ratio 37.5 RATIO (10-20) H 09/10/24 06:25 Glucose 132 mg/dL (74-106) H 09/10/24 06:25 Microbiology Microbiology: Microbiology 09/09/24 14:13 Sputum, Expectorated/Coughed Gram Stain - Final 09/09/24 14:13 Sputum, Expectorated/Coughed Respiratory Culture - Preliminary Mixed normal respiratory argenis. No Haemophilus, Streptococcus pneumoniae, beta-hemolytic Streptococcus or Staphylococcus aureus isolated. 09/09/24 16:06 Urine, Clean Catch Streptococcus pneumoniae Antigen (M - Final 09/09/24 16:06 Urine, Clean Catch Legionella Antigen - Final 09/07/24 14:05 Mucosa - Nasopharyngeal Respiratory Panel (PCR) - Final 09/07/24 11:04 Mucosa - Nose SARS-CoV-2, Influenza & RSV (PCR) - Final Dosing Weight Weight used for dosin kg Estimated Creatinine Clearance Estimated Creatinine Clearance: ~ 67 Goal Trough Goal Trough: 15-20 mcg/mL Pharmacy Plan for Drug Dosing Pharmacy Plan for Drug Dosing: Vancomycin 1750 mg IV x 1 followed by 1000 mg Q12H Pharmacy Service will continue to monitor and adjust dosing as required. Follow-Up Labs Follow-Up Labs: Trough: Vancomycin Date/Time Labs Ordered Labs to be done on [date and time ordered]: 09/13 @ 0300
[2024-09-11] MEDS: Piperacil/Tazobactam 3.375 GM in 0.9% Normal Saline (50mL MB+) 50 ML IV ×2 (15:52→22:52)
[2024-09-11] MEDS: 0.9% Normal Saline (100mL Bag) 100 ML 15 ML IV (15:57)
[2024-09-11] MEDS: Ensure Plus High Protein 120 ML LIQUID PO (18:20)
[2024-09-11] MEDS: Senna/Docusate Sodium 1 Tablet 2 TABLET PO (18:28)
[2024-09-11] MEDS: Acetaminophen 500 MG Tablet 1000 MG PO (20:14)
[2024-09-11] MEDS: traZODone 50 MG Tablet PO (20:15)
[2024-09-12] VITALS (17 sets, daily range): BP systolic 135–173; BP diastolic 65–79; PULSE 55–66; RESP 16–20; TEMP 36.4–36.6; O2SAT 92–99; BMI 23.0
[2024-09-12] MEDS: Vancomycin IV 1,000 MG/200 ML BAG 200 MG IV ×2 (03:12→15:05)
[2024-09-12 06:04] LABS: Absolute Lymphocyte Count 0.46 X10^3/uL (0.83-4.51); Absolute Neutrophil Count 11.3 X10^3/uL (2.0-7.7); Basophil# 0.03 X10^3/uL; Basophil% 0.2 % (0-1); Hematocrit 44.7 % (40-54); Hemoglobin 14.9 g/dL (13.0-16.5); Lymphocyte # 0.46 X10^3/ul (0.83-4.51); Lymphocyte % 3.6 % (19-41); Mean Corp Hgb Conc 33.3 g/dL (32-36); Mean Corpuscular Hgb 31.6 pg (27.0-32.0); Mean Corpuscular Volume 94.7 fL (80-94); Mean Platelet Vol. 11.5 fl (6.2-12.0); Monocyte# 0.59 X10^3/uL; Monocyte% 4.7 % (0-10); NRBC Flagged by Analyzer 0 % (0-5); Neutrophil # 11.32 X10^3/uL (2.7-7.7); Neutrophil % 89.8 % (47-70); POSITIVE DIFFERENTIAL YES; Platelet Count 165 K/mm3 (150-450); RBC Distribution Width CV 15.9 % (11.6-14.6); RBC Distribution Width SD 55.7 fl (35.1-43.9); Red Blood Count 4.72 M/mm3 (4.6-6.2); White Blood Count 12.6 K/mm3 (4.4-11.0)
[2024-09-12] MEDS: 0.9% Saline Lock 10 ML Syringe IV ×5 (06:07→20:41)
[2024-09-12] MEDS: Acetaminophen 500 MG Tablet 1000 MG PO ×3 (06:07→20:40)
[2024-09-12] MEDS: Piperacil/Tazobactam 3.375 GM in 0.9% Normal Saline (50mL MB+) 50 ML IV ×3 (06:12→20:40)
[2024-09-12 06:15] LABS: Anion Gap 7 (5-15); BUN 32 mg/dL (7-18); BUN/Creat Ratio 33.2 RATIO (10-20); Calcium,Total 8.5 mg/dL (8.5-10.1); Chloride 105 mmol/L (98-107); Creatinine, Serum 0.96 mg/dL (0.70-1.30); EST Glomerular Filtration Rate 78 mL/min (>60); Est Glom Filt Rate - Afr Amer 95 mL/min (>60); Glucose 156 mg/dL (74-106); Potassium 3.4 mmol/L (3.5-5.1); Sodium Level 140 mmol/L (136-145)
[2024-09-12] MEDS: Ipratropium/Albuterol Sulfate 3 ML AMPUL.NEB INHALATION ×3 (06:55→18:58)
--- NOTE | 2024-09-12 08:11 | PCM.PN.HOSP ---
Reason for Visit Reason for Visit: Diagnoses Hypoxemia (09/07/24) Subjective Subjective Still on Airvo, but FiO2 decreased. Objective Data Objective Data Vital Signs: Vital Signs Temp Pulse Resp BP Pulse Ox O2 Del Method O2 Flow Rate 36.6 C 58 L 20 H 149/79 H 96 Airvo 40 09/12/24 03:05 09/12/24 03:05 09/12/24 03:05 09/12/24 03:05 09/12/24 03:19 09/12/24 03:05 09/12/24 03:05 FiO2 34 09/12/24 03:19 Oxygen Flow Rate (L/min) 40 Oxygen Delivery Method Airvo Weight: 72.7 kg Body Mass Index (BMI) 23.0 Intake & Output: Intake and Output for Last 24 Hours 09/10/24 09/11/24 09/12/24 23:59 23:59 23:59 Intake Total 965 / 1365 2430.25 / 2430.25 350 / 350 Output Total 650 / 1800 3600 / 3600 350 / 350 Balance 315 / -435 -1169.75 / -1169.75 0 / 0 Lab / Micro Data 09/12/24 05:21 09/12/24 05:21 Labs: Laboratory Results - last 24 hr 09/12/24 05:21: WBC 12.6 H, RBC 4.72, Hgb 14.9, Hct 44.7, MCV 94.7 H, MCH 31.6, MCHC 33.3, RDW Std Deviation 55.7 H, RDW Coeff of Jihan 15.9 H, Plt Count 165, MPV 11.5, Immature Gran % (Auto) 1.700 H, Neut % (Auto) 89.8 H, Lymph % (Auto) 3.6 L, [place] % (Auto) 4.7, Eos % (Auto) 0.0, Baso % (Auto) 0.2, Absolute Neuts (auto) 11.3 H, Absolute Lymphs (auto) 0.46 L, Nucleated RBC % 0, Sodium 140, Potassium 3.4 L, Chloride 105, Carbon Dioxide 28.0, Anion Gap 7, BUN 32 H, Creatinine 0.96, Estim Creat Clear Calc 56.80, Est GFR (MDRD) Af Amer 95, Est GFR (MDRD) Non-Af 78, BUN/Creatinine Ratio 33.2 H, Glucose 156 H, Calcium 8.5 Micro: Microbiology 09/09/24 14:13 Sputum, Expectorated/Coughed Gram Stain - Final 09/09/24 14:13 Sputum, Expectorated/Coughed Respiratory Culture - Preliminary Mixed normal respiratory argenis. No Haemophilus, Streptococcus pneumoniae, beta-hemolytic Streptococcus or Staphylococcus aureus isolated. 09/09/24 16:06 Urine, Clean Catch Streptococcus pneumoniae Antigen (M - Final 09/09/24 16:06 Urine, Clean Catch Legionella Antigen - Final 09/07/24 14:05 Mucosa - Nasopharyngeal Respiratory Panel (PCR) - Final 09/07/24 11:04 Mucosa - Nose SARS-CoV-2, Influenza & RSV (PCR) - Final Physical Exam Const alert and no apparent distress HEENT head/scalp atraumatic and moist oral mucous membranes Resp normal respiratory effort, no retractions, no use of accessory muscles and clear to auscultation bilaterally Cardio regular rate, regular rhythm, S1 normal heart sound and S2 normal heart sound GI normal to inspection, nondistended, normoactive bowel sounds, soft to palpation and non-tender Extremity normal to inspection, full ROM and no clubbing, cyanosis or edema Neuro Sensorium / Orientation: awake, alert, oriented to person and oriented to place Assessment & Plan Assessment/Plan (1) Hypoxia: PLAN: Plan Acute metabolic encephalopathy Resolved. Secondary to severe hypoxia. 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 Neurology recommending MRI head w/o contrast. Pt requesting something to calm him for the MRI. I feel it would be of low utility as risky with sedation while on Airvo. No further testing as I do not feel he had headaches. Acute hypoxic respiratory failure Patient started on bronchodilator treatment, systemic steroid as well as antibiotic therapy. Patient placed on oxygen via Airvo titrated to keep saturation greater than 90. D-dimer 1.63. CTA shows infiltrates, more prominent on the right. No PE on duonebs, change prednisone to methylprednisone. change abx now to pip/tazo and vanc Furosemide challenge given lack of improvement. Suspected pneumococcal pneumonia CTX and azithromycin, since changed to pip/tazo and vancomycin Strep and Legionella antigens negative. Check sputum cultures Elevated troponin though WNL. Likely due to demand ischemia. No additional work up at this time. Chronic conditions Coronary artery disease? 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
[2024-09-12] MEDS: amLODIPine 5 MG Tablet PO (09:05)
[2024-09-12] MEDS: Tamsulosin HCl 0.4 MG Capsule PO (09:05)
[2024-09-12] MEDS: Atorvastatin Calcium 10 MG Tablet PO (09:05)
[2024-09-12] MEDS: Senna/Docusate Sodium 1 Tablet 2 TABLET PO (09:05)
[2024-09-12] MEDS: Citalopram 20 MG Tablet PO (09:05)
[2024-09-12] MEDS: Pantoprazole Sodium 40 MG Tablet PO (09:05)
[2024-09-12] MEDS: Finasteride 5 MG Tablet PO (09:06)
[2024-09-12] MEDS: Clopidogrel Bisulfate 75 MG Tablet PO (09:06)
[2024-09-12] MEDS: Enoxaparin 40 MG/0.4 ML Syringe SC (09:06)
[2024-09-12] MEDS: Furosemide 40 MG/4 ML Vial IV ×2 (09:07→17:42)
[2024-09-12] MEDS: Lidocaine 5% Patch 2 PATCH TOPICAL (09:08)
[2024-09-12] MEDS: Metoprolol(XL)Succ 25 MG Tablet PO (09:09)
[2024-09-12] MEDS: Ensure Plus High Protein 120 ML LIQUID PO (13:40)
[2024-09-12] MEDS: traZODone 50 MG Tablet PO (20:40)
[2024-09-13] VITALS (12 sets, daily range): BP systolic 119–185; BP diastolic 66–78; PULSE 52–82; RESP 14–24; TEMP 36.5–36.7; O2SAT 91–97; BMI 22.5
[2024-09-13 03:19] LABS: Absolute Lymphocyte Count 0.43 X10^3/uL (0.83-4.51); Absolute Neutrophil Count 12.2 X10^3/uL (2.0-7.7); Basophil# 0.09 X10^3/uL; Basophil% 0.7 % (0-1); Hematocrit 45.7 % (40-54); Hemoglobin 15.5 g/dL (13.0-16.5); Lymphocyte # 0.43 X10^3/ul (0.83-4.51); Lymphocyte % 3.2 % (19-41); Mean Corp Hgb Conc 33.9 g/dL (32-36); Mean Corpuscular Volume 94.4 fL (80-94); Mean Platelet Vol. 11.4 fl (6.2-12.0); Monocyte# 0.52 X10^3/uL; Monocyte% 3.8 % (0-10); NRBC Flagged by Analyzer 0 % (0-5); Neutrophil # 12.15 X10^3/uL (2.7-7.7); Neutrophil % 89.7 % (47-70); POSITIVE DIFFERENTIAL YES; Platelet Count 162 K/mm3 (150-450); RBC Distribution Width CV 15.8 % (11.6-14.6); RBC Distribution Width SD 54.8 fl (35.1-43.9); Red Blood Count 4.84 M/mm3 (4.6-6.2); White Blood Count 13.5 K/mm3 (4.4-11.0)
[2024-09-13 03:34] LABS: Anion Gap 3 (5-15); BUN 34 mg/dL (7-18); BUN/Creat Ratio 30.9 RATIO (10-20); Calcium,Total 8.6 mg/dL (8.5-10.1); Chloride 103 mmol/L (98-107); EST Glomerular Filtration Rate 67 mL/min (>60); Est Glom Filt Rate - Afr Amer 82 mL/min (>60); Estimated Creatinine Clearance 49.57 ml/min; Glucose 168 mg/dL (74-106); Potassium 3.3 mmol/L (3.5-5.1); Sodium Level 139 mmol/L (136-145)
[2024-09-13] MEDS: hydrALAZINE 20 MG/ML Vial 10 MG IV (03:34)
[2024-09-13] MEDS: 0.9% Saline Lock 10 ML Syringe IV ×2 (03:35→21:58)
--- NOTE | 2024-09-13 03:40 | PCM.RX.CS ---
Consult Antibiotic Management Pharmacy has been consulted to manage selected antibiotic: Vancomycin Type of Intervention Type of Consult: Follow-up Suspected Infection Suspected Infection: Pneumonia Labs Labs: Sodium 139 mmol/L (136-145) 09/13/24 03:08 Potassium 3.3 mmol/L (3.5-5.1) L 09/13/24 03:08 Chloride 103 mmol/L (98-107) 09/13/24 03:08 Carbon Dioxide 33.0 mmol/L (21.0-32.0) H 09/13/24 03:08 Anion Gap 3 (5-15) L 09/13/24 03:08 BUN 34 mg/dL (7-18) H 09/13/24 03:08 Creatinine 1.10 mg/dL (0.70-1.30) 09/13/24 03:08 Est GFR (MDRD) Af Amer 82 mL/min (>60) 09/13/24 03:08 Est GFR (MDRD) Non-Af 67 mL/min (>60) 09/13/24 03:08 BUN/Creatinine Ratio 30.9 RATIO (10-20) H 09/13/24 03:08 Glucose 168 mg/dL (74-106) H 09/13/24 03:08 Vancomycin Trough 17.0 ug/mL (5.0-15.0) H 09/13/24 03:08 Microbiology Microbiology: Microbiology 09/09/24 14:13 Sputum, Expectorated/Coughed Gram Stain - Final 09/09/24 14:13 Sputum, Expectorated/Coughed Respiratory Culture - Final 09/09/24 16:06 Urine, Clean Catch Streptococcus pneumoniae Antigen (M - Final 09/09/24 16:06 Urine, Clean Catch Legionella Antigen - Final 09/07/24 14:05 Mucosa - Nasopharyngeal Respiratory Panel (PCR) - Final 09/07/24 11:04 Mucosa - Nose SARS-CoV-2, Influenza & RSV (PCR) - Final Dosing Weight Weight used for dosin kg Estimated Creatinine Clearance Estimated Creatinine Clearance: 50 Goal Trough Goal Trough: 15-20 mcg/mL Pharmacy Plan for Drug Dosing Pharmacy Plan for Drug Dosing: Vancomycin trough level of 17.0, drawn 12hrs post-dose, was within the target range of 15-20. Will continue dosing at 1000mg q12h, and will draw another trough level in two days. Pharmacy Service will continue to monitor and adjust dosing as required. Follow-Up Labs Follow-Up Labs: Trough: Vancomycin Date/Time Labs Ordered Labs to be done on [date and time ordered]: 09/15/24 @0300
[2024-09-13] MEDS: Vancomycin IV 1,000 MG/200 ML BAG 200 MG IV ×2 (03:41→14:01)
[2024-09-13] MEDS: Potassium Chloride Oral Tablet 20 MEQ 60 MEQ PO (05:20)
[2024-09-13] MEDS: Acetaminophen 500 MG Tablet 1000 MG PO ×3 (05:20→21:50)
[2024-09-13] MEDS: Piperacil/Tazobactam 3.375 GM in 0.9% Normal Saline (50mL MB+) 50 ML IV ×3 (05:21→21:50)
[2024-09-13] MEDS: Ipratropium/Albuterol Sulfate 3 ML AMPUL.NEB INHALATION ×4 (07:08→19:25)
--- NOTE | 2024-09-13 08:47 | PN.HOSP_ITS ---
Reason for Visit Reason for Visit: Diagnoses Hypoxemia (09/07/24) Subjective Subjective Decreased oxygenation, now on nasal canula. Objective Data Objective Data Vital Signs: Vital Signs Temp Pulse Resp BP Pulse Ox O2 Del Method O2 Flow Rate 36.5 C L 55 L 18 163/70 H 94 Nasal Cannula 2 09/13/24 03:05 09/13/24 07:09 09/13/24 07:09 09/13/24 05:18 09/13/24 07:09 09/13/24 07:09 09/13/24 07:09 FiO2 34 09/12/24 09:19 Oxygen Flow Rate (L/min) 2 Oxygen Delivery Method Nasal Cannula Weight: 71.2 kg Body Mass Index (BMI) 22.5 Intake & Output: Intake and Output for Last 24 Hours 09/11/24 09/12/24 09/13/24 23:59 23:59 23:59 Intake Total 2430.25 / 2430.25 1709.75 / 1949.75 850 / 850 Output Total 3600 / 3600 1800 / 2750 1200 / 1200 Balance -1169.75 / -1169.75 -90.25 / -800.25 -350 / -350 Lab / Micro Data 09/13/24 03:08 09/13/24 03:08 Labs: Laboratory Results - last 24 hr 09/13/24 03:08: WBC 13.5 H, RBC 4.84, Hgb 15.5, Hct 45.7, MCV 94.4 H, MCH 32.0, MCHC 33.9, RDW Std Deviation 54.8 H, RDW Coeff of Jihan 15.8 H, Plt Count 162, MPV 11.4, Immature Gran % (Auto) 2.600 H, Neut % (Auto) 89.7 H, Lymph % (Auto) 3.2 L , [place] % (Auto) 3.8, Eos % (Auto) 0.0, Baso % (Auto) 0.7, Absolute Neuts (auto) 12.2 H, Absolute Lymphs (auto) 0.43 L, Nucleated RBC % 0, Sodium 139, Potassium 3.3 L, Chloride 103, Carbon Dioxide 33.0 H, Anion Gap 3 L, BUN 34 H, Creatinine 1.10, Estim Creat Clear Calc 49.57, Est GFR (MDRD) Af Amer 82, Est GFR (MDRD) Non-Af 67, BUN/Creatinine Ratio 30.9 H, Glucose 168 H, Calcium 8.6, Vancomycin Trough 17.0 H Micro: Microbiology 09/09/24 14:13 Sputum, Expectorated/Coughed Gram Stain - Final 09/09/24 14:13 Sputum, Expectorated/Coughed Respiratory Culture - Final 09/09/24 16:06 Urine, Clean Catch Streptococcus pneumoniae Antigen (M - Final 09/09/24 16:06 Urine, Clean Catch Legionella Antigen - Final 09/07/24 14:05 Mucosa - Nasopharyngeal Respiratory Panel (PCR) - Final 09/07/24 11:04 Mucosa - Nose SARS-CoV-2, Influenza & RSV (PCR) - Final Physical Exam Const alert HEENT head/scalp atraumatic and moist oral mucous membranes Resp normal respiratory effort, no retractions, no use of accessory muscles and clear to auscultation bilaterally Cardio regular rate, regular rhythm, S1 normal heart sound and S2 normal heart sound GI normal to inspection, nondistended, normoactive bowel sounds, soft to palpation, non-tender and non-distended Neuro Sensorium / Orientation: awake and alert Assessment & Plan Assessment/Plan (1) Hypoxia: PLAN: Plan Acute metabolic encephalopathy * Resolved. * Secondary to severe hypoxia. 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 * Neurology recommending MRI head w/o contrast. Pt requesting something to calm him for the MRI. I feel it would be of low utility as risky with sedation while on Airvo. No further testing as I do not feel he had headaches. Acute hypoxic respiratory failure * Patient started on bronchodilator treatment, systemic steroid as well as antibiotic therapy. * Patient placed on oxygen via Airvo titrated to keep saturation greater than 90. * D-dimer 1.63. CTA shows infiltrates, more prominent on the right. No PE * change abx now to pip/tazo and vanc * Now that he is on nasal canula, I will discontinue furosemide and change steroids to prednisone starting 09/14 Suspected pneumococcal pneumonia * CTX and azithromycin, since changed to pip/tazo and vancomycin * Strep and Legionella antigens negative. Check sputum cultures Elevated troponin * though WNL. Likely due to demand ischemia. No additional work up at this time. Chronic conditions * Coronary artery disease? 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 I advised he speak with his dtr first, to ensure that she will be able to assist. Charges/Coding Visit Charges Inpatient E&M: 89468 Subs Hosp L2
[2024-09-13] MEDS: Pantoprazole Sodium 40 MG Tablet PO (09:36)
[2024-09-13] MEDS: Metoprolol(XL)Succ 25 MG Tablet PO (09:36)
[2024-09-13] MEDS: Clopidogrel Bisulfate 75 MG Tablet PO (09:36)
[2024-09-13] MEDS: Citalopram 20 MG Tablet PO (09:37)
[2024-09-13] MEDS: amLODIPine 5 MG Tablet PO (09:37)
[2024-09-13] MEDS: Finasteride 5 MG Tablet PO (09:37)
[2024-09-13] MEDS: Lidocaine 5% Patch 2 PATCH TOPICAL (09:37)
[2024-09-13] MEDS: Atorvastatin Calcium 10 MG Tablet PO (09:37)
[2024-09-13] MEDS: Tamsulosin HCl 0.4 MG Capsule PO (09:37)
[2024-09-13] MEDS: Enoxaparin 40 MG/0.4 ML Syringe SC (09:37)
[2024-09-13] MEDS: Furosemide 40 MG/4 ML Vial IV (09:38)
[2024-09-13] MEDS: Ensure Plus High Protein 120 ML LIQUID PO ×3 (09:45→16:38)
[2024-09-13] MEDS: Potassium Chloride Oral Tablet 20 MEQ 40 MEQ PO (09:45)
--- NOTE | 2024-09-13 13:02 | CASEMGMT ---
ZACKARY VAZQUEZ into pt room, pt sitting up in chair in no distress. Discussed HHC with pt for SN and therapy. Pt states that he spoke with the doctor this morning and he is not going to dc today or tomorrow and they spoke about having help at home. Pt states he would like to speak to his dtr regarding this before agreeing. Discussed HHC benefits. Pt states he has a small dog and he has to take her to the basement every night and he feels weak to do this. He is aware that therapy would help him with strength and endurance for this. Pt to speak with dtr, ZACKARY VAZQUEZ to f/u on Sunday on decision and he is aware that a list of options can be given. Pt denies further needs at this time.
[2024-09-13] MEDS: traZODone 50 MG Tablet PO (21:50)
[2024-09-14] VITALS (12 sets, daily range): BP systolic 130–161; BP diastolic 67–82; PULSE 56–88; RESP 16–18; TEMP 36.5–36.6; O2SAT 86–95; BMI 22.3
[2024-09-14] MEDS: Vancomycin IV 1,000 MG/200 ML BAG 200 MG IV ×2 (02:56→14:03)
[2024-09-14] MEDS: 0.9% Saline Lock 10 ML Syringe IV (02:57)
[2024-09-14 05:08] LABS: Absolute Lymphocyte Count 1.09 X10^3/uL (0.83-4.51); Basophil# 0.01 X10^3/uL; Basophil% 0.1 % (0-1); Eosinophil# 0.05 X10^3/uL; Eosinophils% 0.3 % (0-5); Hematocrit 43.5 % (40-54); Hemoglobin 14.3 g/dL (13.0-16.5); Lymphocyte # 1.09 X10^3/ul (0.83-4.51); Lymphocyte % 7.3 % (19-41); Mean Corp Hgb Conc 32.9 g/dL (32-36); Mean Corpuscular Hgb 31.6 pg (27.0-32.0); Mean Corpuscular Volume 96.2 fL (80-94); Mean Platelet Vol. 11.7 fl (6.2-12.0); Monocyte# 1.04 X10^3/uL; NRBC Flagged by Analyzer 0 % (0-5); Neutrophil # 11.96 X10^3/uL (2.7-7.7); Neutrophil % 80.5 % (47-70); POSITIVE MORPHOLOGY YES; Platelet Count 152 K/mm3 (150-450); RBC Distribution Width CV 16.1 % (11.6-14.6); RBC Distribution Width SD 56.8 fl (35.1-43.9); Red Blood Count 4.52 M/mm3 (4.6-6.2); White Blood Count 14.9 K/mm3 (4.4-11.0)
[2024-09-14 05:18] LABS: Differential Indicated SCAN CRITERIA MET
[2024-09-14 05:44] LABS: Anion Gap 6 (5-15); BUN 37 mg/dL (7-18); BUN/Creat Ratio 44.2 RATIO (10-20); Calcium,Total 8.6 mg/dL (8.5-10.1); Chloride 106 mmol/L (98-107); Creatinine, Serum 0.84 mg/dL (0.70-1.30); EST Glomerular Filtration Rate 92 mL/min (>60); Est Glom Filt Rate - Afr Amer 112 mL/min (>60); Estimated Creatinine Clearance 63.04 ml/min; Glucose 156 mg/dL (74-106); Potassium 3.4 mmol/L (3.5-5.1); Sodium Level 139 mmol/L (136-145)
[2024-09-14] MEDS: Acetaminophen 500 MG Tablet 1000 MG PO ×3 (05:54→21:01)
[2024-09-14] MEDS: Piperacil/Tazobactam 3.375 GM in 0.9% Normal Saline (50mL MB+) 50 ML IV ×3 (05:55→21:04)
[2024-09-14] MEDS: Ipratropium/Albuterol Sulfate 3 ML AMPUL.NEB INHALATION ×3 (06:32→14:39)
[2024-09-14 07:05] LABS: Reactive Lymphocyte 1+
[2024-09-14] MEDS: Lidocaine 5% Patch 2 PATCH TOPICAL (08:28)
[2024-09-14] MEDS: Ensure Plus High Protein 120 ML LIQUID PO ×2 (08:28→16:27)
[2024-09-14] MEDS: Clopidogrel Bisulfate 75 MG Tablet PO (08:32)
[2024-09-14] MEDS: amLODIPine 5 MG Tablet PO (08:32)
[2024-09-14] MEDS: Metoprolol(XL)Succ 25 MG Tablet PO (08:32)
[2024-09-14] MEDS: Enoxaparin 40 MG/0.4 ML Syringe SC (08:32)
[2024-09-14] MEDS: Pantoprazole Sodium 40 MG Tablet PO (08:33)
[2024-09-14] MEDS: Finasteride 5 MG Tablet PO (08:33)
[2024-09-14] MEDS: Atorvastatin Calcium 10 MG Tablet PO (08:33)
[2024-09-14] MEDS: Citalopram 20 MG Tablet PO (08:33)
[2024-09-14] MEDS: Tamsulosin HCl 0.4 MG Capsule PO (08:33)
[2024-09-14] MEDS: predniSONE 20 MG Tablet 40 MG PO (08:37)
--- NOTE | 2024-09-14 09:10 | PN.HOSP_ITS ---
Reason for Visit Reason for Visit: Diagnoses Hypoxemia (09/07/24) Objective Data Objective Data Vital Signs: Vital Signs Temp Pulse Resp BP Pulse Ox O2 Del Method O2 Flow Rate 36.5 C L 88 18 161/76 H 93 Nasal Cannula 2.5 09/14/24 02:58 09/14/24 08:32 09/14/24 06:32 09/14/24 02:58 09/14/24 08:22 09/14/24 08:22 09/14/24 08:22 FiO2 34 09/12/24 09:19 Oxygen Flow Rate (L/min) 2.5 Oxygen Delivery Method Nasal Cannula Weight: 70.6 kg Body Mass Index (BMI) 22.3 Intake & Output: Intake and Output for Last 24 Hours 09/12/24 09/13/24 09/14/24 23:59 23:59 23:59 Intake Total 1709.75 / 1949.75 1870 / 1990 490 / 490 Output Total 1800 / 2750 2500 / 2500 50 / 50 Balance -90.25 / -800.25 -630 / -510 440 / 440 Lab / Micro Data 09/14/24 03:59 09/14/24 03:59 Labs: Laboratory Results - last 24 hr 09/14/24 03:59: WBC 14.9 H, RBC 4.52 L, Hgb 14.3, Hct 43.5, MCV 96.2 H, MCH 31.6, MCHC 32.9, RDW Std Deviation 56.8 H, RDW Coeff of Jihan 16.1 H, Plt Count 152, MPV 11.7, Immature Gran % (Auto) 4.800 H, Neut % (Auto) 80.5 H, Lymph % (Auto) 7.3 L, [place] % (Auto) 7.0, Eos % (Auto) 0.3, Baso % (Auto) 0.1, Absolute Neuts (auto) 12.0 H, Absolute Lymphs (auto) 1.09, Nucleated RBC % 0, Reactive Lymphocytes 1+, Sodium 139, Potassium 3.4 L, Chloride 106, Carbon Dioxide 27.0, Anion Gap 6, BUN 37 H, Creatinine 0.84, Estim Creat Clear Calc 63.04, Est GFR (MDRD) Af Amer 112, Est GFR (MDRD) Non-Af 92, BUN/Creatinine Ratio 44.2 H, G lucose 156 H, Calcium 8.6 Micro: Microbiology 09/09/24 14:13 Sputum, Expectorated/Coughed Gram Stain - Final 09/09/24 14:13 Sputum, Expectorated/Coughed Respiratory Culture - Final 09/09/24 16:06 Urine, Clean Catch Streptococcus pneumoniae Antigen (M - Final 09/09/24 16:06 Urine, Clean Catch Legionella Antigen - Final 09/07/24 14:05 Mucosa - Nasopharyngeal Respiratory Panel (PCR) - Final 09/07/24 11:04 Mucosa - Nose SARS-CoV-2, Influenza & RSV (PCR) - Final Assessment & Plan Assessment/Plan (1) Hypoxia: PLAN: Plan Acute metabolic encephalopathy * Resolved. * Secondary to severe hypoxia. 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 * Neurology recommending MRI head w/o contrast. Pt requesting something to calm him for the MRI. I feel it would be of low utility as risky with sedation while on Airvo. No further testing as I do not feel he had headaches. Acute hypoxic respiratory failure * Patient started on bronchodilator treatment, systemic steroid as well as antibiotic therapy. * Patient placed on oxygen via Airvo titrated to keep saturation greater than 90. * D-dimer 1.63. CTA shows infiltrates, more prominent on the right. No PE * change abx now to pip/tazo and vanc * Now that he is on nasal canula, I will discontinue furosemide and change steroids to prednisone starting 09/14 Suspected pneumococcal pneumonia * CTX and azithromycin, since changed to pip/tazo and vancomycin * Strep and Legionella antigens negative. Check sputum cultures Elevated troponin * though WNL. Likely due to demand ischemia. No additional work up at this time. Chronic conditions * Coronary artery disease? 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 I advised he speak with his dtr first, to ensure that she will be able to assist.
--- NOTE | 2024-09-14 09:10 | PCM.PN.HOSP ---
Reason for Visit Reason for Visit: Diagnoses Hypoxemia (09/07/24) Subjective Subjective Breathing well. No issues overnight. Objective Data Objective Data Vital Signs: Vital Signs Temp Pulse Resp BP Pulse Ox O2 Del Method O2 Flow Rate 36.5 C L 88 18 161/76 H 93 Nasal Cannula 2.5 09/14/24 02:58 09/14/24 08:32 09/14/24 06:32 09/14/24 02:58 09/14/24 08:22 09/14/24 08:22 09/14/24 08:22 FiO2 34 09/12/24 09:19 Oxygen Flow Rate (L/min) 2.5 Oxygen Delivery Method Nasal Cannula Weight: 70.6 kg Body Mass Index (BMI) 22.3 Intake & Output: Intake and Output for Last 24 Hours 09/12/24 09/13/24 09/14/24 23:59 23:59 23:59 Intake Total 1709.75 / 1949.75 1870 / 1990 490 / 490 Output Total 1800 / 2750 2500 / 2500 50 / 50 Balance -90.25 / -800.25 -630 / -510 440 / 440 Lab / Micro Data 09/14/24 03:59 09/14/24 03:59 Labs: Laboratory Results - last 24 hr 09/14/24 03:59: WBC 14.9 H, RBC 4.52 L, Hgb 14.3, Hct 43.5, MCV 96.2 H, MCH 31.6, MCHC 32.9, RDW Std Deviation 56.8 H, RDW Coeff of Jihan 16.1 H, Plt Count 152, MPV 11.7, Immature Gran % (Auto) 4.800 H, Neut % (Auto) 80.5 H, Lymph % (Auto) 7.3 L, [place] % (Auto) 7.0, Eos % (Auto) 0.3, Baso % (Auto) 0.1, Absolute Neuts (auto) 12.0 H, Absolute Lymphs (auto) 1.09, Nucleated RBC % 0, Reactive Lymphocytes 1+, Sodium 139, Potassium 3.4 L, Chloride 106, Carbon Dioxide 27.0, Anion Gap 6, BUN 37 H, Creatinine 0.84, Estim Creat Clear Calc 63.04, Est GFR (MDRD) Af Amer 112, Est GFR (MDRD) Non-Af 92, BUN/Creatinine Ratio 44.2 H, Glucose 156 H, Calcium 8.6 Micro: Microbiology 09/09/24 14:13 Sputum, Expectorated/Coughed Gram Stain - Final 09/09/24 14:13 Sputum, Expectorated/Coughed Respiratory Culture - Final 09/09/24 16:06 Urine, Clean Catch Streptococcus pneumoniae Antigen (M - Final 09/09/24 16:06 Urine, Clean Catch Legionella Antigen - Final 09/07/24 14:05 Mucosa - Nasopharyngeal Respiratory Panel (PCR) - Final 09/07/24 11:04 Mucosa - Nose SARS-CoV-2, Influenza & RSV (PCR) - Final Physical Exam Const alert and no apparent distress Constitutional Narrative: up in chair. afebrile. HEENT head/scalp atraumatic and moist oral mucous membranes Resp normal respiratory effort, no retractions, no use of accessory muscles and clear to auscultation bilaterally Cardio regular rate, regular rhythm, S1 normal heart sound and S2 normal heart sound GI normal to inspection, nondistended, normoactive bowel sounds, soft to palpation and non-tender Neuro Sensorium / Orientation: awake and alert Assessment & Plan Assessment/Plan (1) Hypoxia: PLAN: Plan Acute metabolic encephalopathy Resolved. Secondary to severe hypoxia. 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 Neurology recommending MRI head w/o contrast. Pt requesting something to calm him for the MRI. I feel it would be of low utility as risky with sedation while on Airvo. No further testing as I do not feel he had headaches. Acute hypoxic respiratory failure Patient started on bronchodilator treatment, systemic steroid as well as antibiotic therapy. Patient placed on oxygen via Airvo titrated to keep saturation greater than 90. D-dimer 1.63. CTA shows infiltrates, more prominent on the right. No PE change abx now to pip/tazo and vanc Now that he is on nasal canula, I will discontinue furosemide and change steroids to prednisone starting 09/14 Suspected pneumococcal pneumonia CTX and azithromycin, since changed to pip/tazo and vancomycin Strep and Legionella antigens negative. Check sputum cultures Elevated troponin though WNL. Likely due to demand ischemia. No additional work up at this time. Chronic conditions Coronary artery disease? 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 He will need oxygen, check home oxygen evaluation in AM.DW patient's dtr (who does not live with the patient, but nearby) and she is comfortable with that plan. Charges/Coding Visit Charges Inpatient E&M: 75351 Subs Hosp L2
[2024-09-14] MEDS: MELATONIN 3 MG TABLET PO (21:01)
[2024-09-14] MEDS: traZODone 50 MG Tablet PO (21:01)
[2024-09-15] VITALS (8 sets, daily range): BP systolic 140–165; BP diastolic 68–75; PULSE 61–82; RESP 14–18; TEMP 36.4; O2SAT 86–97; BMI 23.1
[2024-09-15 03:40] LABS: Vancomycin, Trough Level 16.5 ug/mL (5.0-15.0)
--- NOTE | 2024-09-15 04:10 | PCM.RX.CS ---
Consult Antibiotic Management Pharmacy has been consulted to manage selected antibiotic: Vancomycin Type of Intervention Type of Consult: Follow-up Suspected Infection Suspected Infection: Pneumonia Labs Labs: Sodium 139 mmol/L (136-145) 09/14/24 03:59 Potassium 3.4 mmol/L (3.5-5.1) L 09/14/24 03:59 Chloride 106 mmol/L (98-107) 09/14/24 03:59 Carbon Dioxide 27.0 mmol/L (21.0-32.0) 09/14/24 03:59 Anion Gap 6 (5-15) 09/14/24 03:59 BUN 37 mg/dL (7-18) H 09/14/24 03:59 Creatinine 0.84 mg/dL (0.70-1.30) 09/14/24 03:59 Est GFR (MDRD) Af Amer 112 mL/min (>60) 09/14/24 03:59 Est GFR (MDRD) Non-Af 92 mL/min (>60) 09/14/24 03:59 BUN/Creatinine Ratio 44.2 RATIO (10-20) H 09/14/24 03:59 Glucose 156 mg/dL (74-106) H 09/14/24 03:59 Vancomycin Trough 16.5 ug/mL (5.0-15.0) H 09/15/24 03:09 Microbiology Microbiology: Microbiology 09/09/24 14:13 Sputum, Expectorated/Coughed Gram Stain - Final 09/09/24 14:13 Sputum, Expectorated/Coughed Respiratory Culture - Final 09/09/24 16:06 Urine, Clean Catch Streptococcus pneumoniae Antigen (M - Final 09/09/24 16:06 Urine, Clean Catch Legionella Antigen - Final 09/07/24 14:05 Mucosa - Nasopharyngeal Respiratory Panel (PCR) - Final 09/07/24 11:04 Mucosa - Nose SARS-CoV-2, Influenza & RSV (PCR) - Final Dosing Weight Weight used for dosin kg Estimated Creatinine Clearance Estimated Creatinine Clearance: 63 Goal Trough Goal Trough: 15-20 mcg/mL Pharmacy Plan for Drug Dosing Pharmacy Plan for Drug Dosing: Vancomycin trough level of 16.5, drawn 13hrs post-dose, was within the target range of 15-20. Will continue dosing at 1000mg q12h, and will draw another trough level in four days. Pharmacy Service will continue to monitor and adjust dosing as required. Follow-Up Labs Follow-Up Labs: Trough: Vancomycin Date/Time Labs Ordered Labs to be done on [date and time ordered]: 09/19/24 @0300
[2024-09-15] MEDS: Vancomycin IV 1,000 MG/200 ML BAG 200 MG IV (04:17)
[2024-09-15] MEDS: Acetaminophen 500 MG Tablet 1000 MG PO ×2 (05:15→14:40)
[2024-09-15] MEDS: Piperacil/Tazobactam 3.375 GM in 0.9% Normal Saline (50mL MB+) 50 ML IV (05:18)
[2024-09-15] MEDS: Ipratropium/Albuterol Sulfate 3 ML AMPUL.NEB INHALATION ×2 (06:55→14:23)
[2024-09-15] MEDS: Ensure Plus High Protein 120 ML LIQUID PO ×2 (08:15→12:36)
[2024-09-15] MEDS: predniSONE 20 MG Tablet 40 MG PO (08:15)
[2024-09-15] MEDS: Tamsulosin HCl 0.4 MG Capsule PO (08:23)
[2024-09-15] MEDS: Citalopram 20 MG Tablet PO (08:23)
[2024-09-15] MEDS: Lidocaine 5% Patch 2 PATCH TOPICAL (08:23)
[2024-09-15] MEDS: Atorvastatin Calcium 10 MG Tablet PO (08:23)
[2024-09-15] MEDS: Enoxaparin 40 MG/0.4 ML Syringe SC (08:23)
[2024-09-15] MEDS: Finasteride 5 MG Tablet PO (08:24)
[2024-09-15] MEDS: Metoprolol(XL)Succ 25 MG Tablet PO (08:24)
[2024-09-15] MEDS: amLODIPine 5 MG Tablet PO (08:24)
[2024-09-15] MEDS: Clopidogrel Bisulfate 75 MG Tablet PO (08:24)
[2024-09-15] MEDS: Pantoprazole Sodium 40 MG Tablet PO (08:24)
--- NOTE | 2024-09-15 09:06 | PCM.DC ---
Discharge Instructions Diet Discharge Diet: 2000 mg Sodium Diet DC O2, CPAP, BIPAP needs RN Home O2 Qualification: Home O2 Qualification: Is the patient on home oxygen No 09/15/24 11:15 Home O2 Qualification: AT REST 1- Pulse Ox at rest 93 09/15/24 11:15 2- Pulse Ox at rest 92 09/14/24 12:19 2- Oxygen Flow Rate at rest 3 09/14/24 12:19 Home O2 Qualification: WITH AMBULATION 1- Pulse Ox with ambulation 86 09/15/24 11:15 1- Oxygen Flow Rate with 1 09/15/24 11:15 ambulation 2- Pulse Ox with ambulation 89 09/15/24 11:15 2- Oxygen Flow Rate with 2 09/15/24 11:15 ambulation Home O2 Discharge instructions: Yes Type of respiratory needs?: Oxygen Oxygen frequency: With Ambulation Oxygen liters per minute during Ambulation: 2 to 3 L/min Dressing / Incision Discharge Activity: Return to Normal Activity Weight Bearing Status: Weight bearing as tolerated Dressing / Incision Call your doctor if you observe: Fever of 101 or Higher, Coldness, Increased Pain, Numbness or Tingling, Change in Color, Inability to urinate, Inability to have a bowel movement, Shortness of breath, Dizziness, Fainting spells, Swelling in the ankles, Chest pain, Prolonged hiccupping, Increased palpitations (irregular heartbeat) and Calf discomfort Follow Up Care When: IN 2 WEEKS Test Results: Test results from this visit will be discussed in further detail at your follow-up appointment, if applicable. Discharge Plan Admission Admit Date/Time: 09/07/24 12:42 Primary Reason for Your Visit: Pneumonia Attending Provider: John Soliz Primary Care Provider: Brigitte Rico Consulting Providers: Jerrell Faith; Lester Perdomo Instructions Additional Instructions / Restrictions: Continue incentive spirometry and PEP for 1 week Discharge Orders/Prescriptions Prescriptions: Continued tamsulosin 0.4 mg capsule 0.4 mg PO DAILY citalopram 20 MG tablet 20 mg PO DAILY multivitamin 1 EACH tablet 1 ea PO DAILY ascorbic acid (vitamin C) 1,000 MG tablet 1,000 mg PO DAILY atorvastatin 10 MG tablet 10 mg PO DAILY clopidogrel 75 MG tablet 75 mg PO DAILY finasteride 5 MG tablet 5 mg PO DAILY metoprolol succinate 25 mg tablet extended release 24 hr 25 mg PO DAILY Lactobacillus acidophilus 1 billion cell capsule 1,000 mmu cells PO DAILY Qty: 30 0RF pantoprazole 40 mg tablet,delayed release (DR/EC) 40 mg PO DAILY hydrochlorothiazide 25 mg tablet 12.5 mg PO DAILY Changed amlodipine 5 mg tablet 10 mg PO DAILY 30 Days Qty: 0 0RF Referrals / Follow Up: Brigitte Rico, MARIANA [Primary Care Provider] - Radha Durbin, PA [Non-Staff] - Steven Mitchell DO [Med Staff - Active Staff] - Within 1 Month Disposition Disposition (needs filled in before D/C Order can be placed): Home, Self Care
--- NOTE | 2024-09-15 09:52 | PCM.DC.SUM ---
Providers Date of Admission: 09/07/24 Date of Discharge: 09/15/24 Primary Care Physician: Brigitte Rico, MARIANA Reason For Visit: HYPOXIA Diagnosis Discharge Diagnosis (1) Hypoxia: Status: Acute Code(s): R09.02 - Hypoxemia Plan 88-year-old male was admitted with episodes of confusion as per the family. Patient had dizziness and a prior admission. He also had slurring of his speech. Acute CVA was ruled out but patient was found hypoxic with pulse ox in 60s. Acute metabolic encephalopathy Resolved. Secondary to severe hypoxia. 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 Neurology recommending MRI head w/o contrast. Pt requesting something to calm him for the MRI. I feel it would be of low utility as risky with sedation while on Airvo. No further testing as I do not feel he had headaches. Acute hypoxic respiratory failure Patient was started on bronchodilator treatment, systemic steroid as well as antibiotic therapy. Patient placed on oxygen via Airvo titrated to keep saturation greater than 90. D-dimer 1.63. CTA shows infiltrates, more prominent on the right. No PE 's patient had antibiotic IV ceftriaxone, azithromycin and vancomycin in the beginning. Then ceftriaxone was changed to Zosyn on 09/11. Urinary antigens were negative. His sputum culture shows mixed normal respiratory argenis. There patient completed 8 days of antibiotic therefore does not need further. No fever Oxygenation got better but distillates of oxygen about 2 to 3 L on walking. Follow-up in pulmonary clinic. Patient had remote history of smoking. Elevated troponin Likely due to demand ischemia. No additional work up at this time. Chronic conditions Coronary artery disease? 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 Discharge follow-up instructions completed. Discharge process discussed with the patient and all questions were answered to patient's satisfaction. Follow with PCP in 1 to 2 weeks. Home qualification oxygen ordered. Total time spent, exact 35 minutes on discharge meds reconciliation, examination, coordination of care with nurses and ancillary staff, review of imaging and blood test and discussion with the patient on follow-up instructions. Medications at Discharge Home Medications citalopram 20 mg tablet 20 mg PO DAILY DEPRESSION 03/17/14 multivitamin 1 ea PO DAILY HEALTH MINENANCE 05/16/17 tamsulosin 0.4 mg capsule 0.4 mg PO DAILY PROSTATE 09/04/19 ascorbic acid (vitamin C) 1,000 mg tablet 1,000 mg PO DAILY SUPPLEMENT 01/18/20 atorvastatin 10 mg tablet 10 mg PO DAILY CHOLESTEROL 08/25/20 clopidogrel 75 mg tablet 75 mg PO DAILY BLOOD THINNER 08/25/20 finasteride 5 mg tablet 5 mg PO DAILY PROSTATE 08/26/20 metoprolol succinate 25 mg tablet,extended release 24 hr 25 mg PO DAILY BLOOD PRESSURE 08/01/23 Lactobacillus acidophilus 1 billion cell capsule 1,000 mmu cells PO DAILY #30 caps 08/04/23 hydrochlorothiazide 25 mg tablet 12.5 mg PO DAILY BLOOD PRESSURE 09/07/24 pantoprazole 40 mg tablet,delayed release 40 mg PO DAILY gerd 09/07/24 amlodipine 5 mg tablet 10 mg (2 x 5 mg) PO DAILY bp 30 days #0 tabs 09/15/24 Physical Exam Narrative Seen and examined. No significant overnight issues. Patient is doing well. On room air On walking his oxygenation then return to the home and sit down dropped. Repeat oxygen testing ordered Physical exam General: Alert, Oriented x3, Cooperative HEENT: Atraumatic, PERRLA, EOMI, Normocephalic Oral: No Gingival or Mucosal Lesions/ Ulcerations Neck: Supple, No JVD, Negative Carotid Bruits Chest wall/Lungs: Air entry diminished in bilateral lung bases. No crepitation/rhonchi. Clear Cardiovascular: Sinus, Normal S1, Normal S2, systolic murmur right second ICS Abdomen: Bowel Sounds Present, Soft, Non Tender, Non-Distended : No dysuria. No renal angle tenderness. No suprapubic tenderness. Extremities: No edema, Capillary Refill Less than 3 Seconds Skin: No rashes, No breakdown Musculoskeletal: No Tenderness to Palpation of Joints or Extremities Neurological: Cranial nerves II-XII grossly intact, DTR 2+/4. No acute focal neurological deficit. Psych/Mental Status: Normal Affect, Appropriate. Weight / BMI Weight Weight: 161 lb 6.054 oz Body Mass Index (BMI) 23.1 ABG / Lab / Microbiology Data 09/14/24 03:59 09/14/24 03:59 Laboratory: Laboratory Results - last 24 hr 09/15/24 03:09: Vancomycin Trough 16.5 H Microbiology: Microbiology 09/09/24 14:13 Sputum, Expectorated/Coughed Gram Stain - Final 09/09/24 14:13 Sputum, Expectorated/Coughed Respiratory Culture - Final 09/09/24 16:06 Urine, Clean Catch Streptococcus pneumoniae Antigen (M - Final 09/09/24 16:06 Urine, Clean Catch Legionella Antigen - Final 09/07/24 14:05 Mucosa - Nasopharyngeal Respiratory Panel (PCR) - Final 09/07/24 11:04 Mucosa - Nose SARS-CoV-2, Influenza & RSV (PCR) - Final D/C Instructions DC O2, CPAP, BIPAP Needs RN Home O2 Qualification: Home O2 Qualification: Is the patient on home oxygen No 09/15/24 11:15 Home O2 Qualification: AT REST 1- Pulse Ox at rest 93 09/15/24 11:15 2- Pulse Ox at rest 92 09/14/24 12:19 2- Oxygen Flow Rate at rest 3 09/14/24 12:19 Home O2 Qualification: WITH AMBULATION 1- Pulse Ox with ambulation 86 09/15/24 11:15 1- Oxygen Flow Rate with 1 09/15/24 11:15 ambulation 2- Pulse Ox with ambulation 89 09/15/24 11:15 2- Oxygen Flow Rate with 2 09/15/24 11:15 ambulation PSN CPAP & BiPAP: BiPAP & CPAP Settings per PSN Mode AIRVO 09/12/24 03:19 Bipap Delivery Device Nasal Pillows 09/12/24 03:19 Fraction of Inspired Oxygen ( 34 09/12/24 09:19 FIO2) Total Flow Rate 40 09/12/24 03:19 Home O2 Discharge instructions: Yes Type of respiratory needs?: Oxygen Oxygen frequency: With Ambulation Oxygen liters per minute during Ambulation: 2 to 3 L/min DC home with Oxygen: Yes Home O2 MD Review: I have reviewed the oxygen testing, and the patient qualifies for home oxygen equipment and portability. The patient is mobile in the home and the community. Meaningful Use Info Meaningful Use Meaningful Use Diagnoses (Choose all that apply): None applicable Ischemic Stroke Statin Dosing Therapy Reference: STATIN DOSE THERAPY REFERENCE: * Patients > 75 years receive moderate or high dose statin therapy. * Patients 75 years or YOUNGER should receive HIGH intensity statin dose unless contraindicated. You will be required to document reason for non-treatment if statin daily dose does not meet guidelines. HIGH DOSE STATIN THERAPY DAILY Atorvastatin > than or = to 40 mg Rosuvastatin > than or = to 20 mg Amlodipine + Atorvastatin > than or = to 2.5/40 mg Ezetimibe + Simvastatin 10/80 mg Simvastatin 80mg Discharge Plan Admission Admit Date/Time: 09/07/24 12:42 Primary Reason for Your Visit: Pneumonia Attending Provider: John Soliz Primary Care Provider: Brigitte Rico Consulting Providers: Jerrell Faith; Lester Perdomo Instructions Additional Instructions / Restrictions: Continue incentive spirometry and PEP for 1 week Discharge Orders/Prescriptions Prescriptions: Continued tamsulosin 0.4 mg capsule 0.4 mg PO DAILY citalopram 20 MG tablet 20 mg PO DAILY multivitamin 1 EACH tablet 1 ea PO DAILY ascorbic acid (vitamin C) 1,000 MG tablet 1,000 mg PO DAILY atorvastatin 10 MG tablet 10 mg PO DAILY clopidogrel 75 MG tablet 75 mg PO DAILY finasteride 5 MG tablet 5 mg PO DAILY metoprolol succinate 25 mg tablet extended release 24 hr 25 mg PO DAILY Lactobacillus acidophilus 1 billion cell capsule 1,000 mmu cells PO DAILY Qty: 30 0RF pantoprazole 40 mg tablet,delayed release (DR/EC) 40 mg PO DAILY hydrochlorothiazide 25 mg tablet 12.5 mg PO DAILY Changed amlodipine 5 mg tablet 10 mg PO DAILY 30 Days Qty: 0 0RF Referrals / Follow Up: Brigitte Rico, MARIANA [Primary Care Provider] - Steven Mitchell DO [Med Staff - Active Staff] - Within 1 Month Radha Durbin PA [Non-Staff] - Disposition Disposition (needs filled in before D/C Order can be placed): Home, Self Care Charges/Coding Visit Charges Inpatient E&M: 28268 Disch Hosp >30min
--- NOTE | 2024-09-15 12:20 | CASEMGMT ---
Addendum entered by Doris Agosto 09/15/24 14:13: ZACKARY VAZQUEZ received call back from [facility], they are able to accept with start of care for Sunday. Patient will need oxygen at discharge, script received and referral sent to [facility] via [facility] and arrangement for tank to be delivered to patient's room. ZACKARY VAZQUEZ called daughter to updated regarding HHC and home oxygen. Daughter voiced understanding and appreciation. ZACKARY VAZQUEZ updated discharge plan. Original Note: ZACKARY VAZQUEZ in to discuss needs at discharge, daughter Norma at bedside. Patient and daughter interested in HHC and prefer [facility], declined list at this time. Daughter inquired about medical alert, information provided. Will monitor for home oxygen at discharge. Patient and family had no further questions or concerns. ZACKARY VAZQUEZ called and made referral to [facility], awaiting acceptance.
--- NOTE | 2024-09-15 14:31 | PHA.DC.MR.R ---
Pharmacy [place] Med Reconciliation Pharmacy Service has performed discharge medication reconciliation for this patient. No new medications at time of discharge medication list review. Medications reviewed are from previously reported home medications. The patient's discharge medication list was reviewed for discrepancies and discrepancies were resolved. Medications at Discharge Home Medications citalopram 20 mg tablet 20 mg PO DAILY DEPRESSION 03/17/14 multivitamin 1 ea PO DAILY HEALTH MINENANCE 05/16/17 tamsulosin 0.4 mg capsule 0.4 mg PO DAILY PROSTATE 09/04/19 ascorbic acid (vitamin C) 1,000 mg tablet 1,000 mg PO DAILY SUPPLEMENT 01/18/20 atorvastatin 10 mg tablet 10 mg PO DAILY CHOLESTEROL 08/25/20 clopidogrel 75 mg tablet 75 mg PO DAILY BLOOD THINNER 08/25/20 finasteride 5 mg tablet 5 mg PO DAILY PROSTATE 08/26/20 metoprolol succinate 25 mg tablet,extended release 24 hr 25 mg PO DAILY BLOOD PRESSURE 08/01/23 Lactobacillus acidophilus 1 billion cell capsule 1,000 mmu cells PO DAILY #30 caps 08/04/23 hydrochlorothiazide 25 mg tablet 12.5 mg PO DAILY BLOOD PRESSURE 09/07/24 pantoprazole 40 mg tablet,delayed release 40 mg PO DAILY gerd 09/07/24 amlodipine 5 mg tablet 10 mg (2 x 5 mg) PO DAILY bp 30 days #0 tabs 09/15/24
== END 2024-09-15 15:38 | disposition home health service (06) | DRG 189 ==
LOC: ED 12:44 → PCU 12:51
PROVIDERS: Internal Medicine; Admitting Provider Internal Medicine; Emergency Provider Emergency Medicine; PCP Clinical Nurse Specialist Adult Health; Visit Provider Internal Medicine
DX: J96.01 Acute respiratory failure with hypoxia (principal); G93.41 Metabolic encephalopathy; J13 Pneumonia due to Streptococcus pneumoniae; G91.2 (Idiopathic) normal pressure hydrocephalus; I24.89 Other forms of acute ischemic heart disease; E87.20 Acidosis, unspecified; N13.8 Other obstructive and reflux uropathy; Z66 Do not resuscitate; I10 Essential (primary) hypertension; F32.A Depression, unspecified; I25.10 Atherosclerotic heart disease of native coronary artery without angina pectoris; K21.9 Gastro-esophageal reflux disease without esophagitis; E78.5 Hyperlipidemia, unspecified; F41.9 Anxiety disorder, unspecified; N40.1 Benign prostatic hyperplasia with lower urinary tract symptoms; Z11.52 Encounter for screening for COVID-19; Z79.02 Long term (current) use of antithrombotics/antiplatelets; Z86.16 Personal history of COVID-19; Z87.891 Personal history of nicotine dependence; Z95.5 Presence of coronary angioplasty implant and graft
CPT/HCPCS: 36415; 36600; 70450; 70496; 70498; 71045; 71275; 73080; 74018; 80048; 80202; 81001; 82803; 83735; 83880; 84100; 84484; 85025; 85379; 85610; 85730; 87070; 87205; 87449; 87631; 87633; 93005; 93308; 94002; 94640; 94660; 94668; 94762; 97110; 97116; 97162; 97166; 97530; 97535; 97802; 97803; 99285; Q9967; A4216; J1940

== ENCOUNTER 2025-02-08 16:48 | Inpatient (IN) | payer MEDICARE, SELFPAY ==
[2019-09-08 13:16] VITALS: BMI 24.7
[2025-02-08] VITALS (8 sets, daily range): BP systolic 98–128; BP diastolic 51–65; PULSE 56–62; RESP 18–20; TEMP 36.6–36.8; O2SAT 90–98; BMI 22.4; BMI 22.1
--- NOTE | 2025-02-08 17:07 | EKG12_ITS ---
Test Reason : O Blood Pressure : */* mmHG Vent. Rate : 61 BPM Atrial Rate : 61 BPM P-R Int : 160 ms QRS Dur : 102 ms QT Int : 448 ms P-R-T Axes : 58 7 26 degrees QTcB Int : 450 ms Normal sinus rhythm Normal ECG Confirmed by ROSA MANUEL, SKYLER ([id number]), script editor FARSHAD PANDYA ([id number]) on 02/09/2025 1:23:28 PM Referred By: Confirmed By: SKYLER LEE MD
--- NOTE | 2025-02-08 17:07 | EKG12_ITS ---
Test Reason : O Blood Pressure : */* mmHG Vent. Rate : 61 BPM Atrial Rate : 61 BPM P-R Int : 160 ms QRS Dur : 102 ms QT Int : 448 ms P-R-T Axes : 58 7 26 degrees QTcB Int : 450 ms Normal sinus rhythm Normal ECG Confirmed by ROSA MANUEL, SKYLER ([id number]), technical writer and editor FARSHAD PANDYA ([id number]) on 02/09/2025 1:23:28 PM Referred By: Confirmed By: SKYLER LEE MD
--- OUTSIDE RECORDS SUMMARY | 2025-02-08 18:42 | XMS RPT_ITS | CCD ---
Author Organization [facility] Care Team Providers Care Interior Design Principal Name Role Phone Quan Mackenzie MD Unavailable Mela Patel Unavailable Unavailable Anjelica Walden Unavailable Unavailable Radha Durbin PA-C Primary Care Provider [phone] Dr. Brian Mackenzie III Referring Provider Dr. Dejuan Brooks Attending Provider CHRISTINE Blount Primary Care Provider Dr. Dejuan Brooks Referring Provider Dr. Dejuan Brooks Other Provider Radha Durbin PA-C Primary Care Provider CHRISTINE Blount Primary Care Provider Dr. Dejuan Brooks Attending Provider Dr. Dejuan Brooks Referring Provider Dr. Dejuan Brooks Other Provider Radha Durbin PA-C Primary Care Provider CHRISTINE Blount Primary Care Provider Dr. Becca Nam Attending Provider MD Lewis Sutton Emergency Provider Dr. Jasmine Tan Admit Provider Dr. Jasmine Tan Other Provider Dr. Jerrell Faith Attending Provider Unavailable Dr. Jerrell Faith Other Provider Unavailable Radha Durbin PA-C Primary Care Provider Haagen SPRINKLING TRUCK DRIVER.GANG LEADER, Yuliana Unavailable Suppan SPRINKLING TRUCK DRIVER.GANG LEADER, Brigitte A Unavailable [phone] Suppan SPRINKLING TRUCK DRIVER.GANG LEADER, Brigitte A Primary Care Provi emilia Radha Blount Primary Care Unavailable Mary Hill Attending Unavail able Mary Hill Referring Unavail able Radha Blount Primary Care Unavailable Tamra Ivey Attending Unavailable Jerrell Faith Consulting Unavailable Suppan, Brigitte Primary Care Unavailable Jerrell Faith Admitting Unavailable Martínez John Attending Unavailable Lester Perdomo Consulting Unavailable Lester Perdomo Attending Unavailable Jerrell Faith Admitting Unavailable Suppan, Brigitte Primary Care Unavailable KitJerrell nuñez Consulting Unavailable Leanne Lester Consulting Unavailable Martínez John Attending Unavailable Martínez, John Consulting Unavailable Jerrell Faith Attending Unavailable Suppan, Brigitte Primary Care Unavailable Dejuan Brooks Attending Unavailable Suppan, Brigitte Primary Care Unavailable Suppan, Brigitte Referring Unavailable Claudia HUMAN INTELLIGENCE, Kalyn Attending Unavailable Radha Blount Referring Unavailable Radha Blount Primary Care Unavailable Mary Hill Attending Unavail able Suppan, Brigitte Primary Care Unavailable Tayolr HUMAN INTELLIGENCE, Kalyn Referring Unavailable Taylor HUMAN INTELLIGENCE, Kalyn Attending Unavailable Haagen SPRINKLING TRUCK DRIVER.GANG LEADER, Yuliana Unavailable Suppan SPRINKLING TRUCK DRIVER.GANG LEADER, Brigitte A Unavailable SUPPAN, BRIGITTE A Attending Unavailable CASPER DURBIN Primary Care Unavailable SUPPAN, BRIGITTE A Attending Unavailable SUPPAN, BRIGITTE A Primary Care Unavailable CASPER DURBIN Attending Unavailable CASPER DURBIN Primary Care Unavailable CASPER DURBIN Referring Unavailable DURBINCASPER BENJAMIN Primary Care Unavailable SUPPAN, BRIGITTE A Attending Unavailable DURBINCASPER BENJAMIN Primary Care Unavailable SUPPAN, BRIGITTE A Referring Unavailable DURBINCASPER BENJAMIN Primary Care Unavailable Dr. Neo Tejeda DO Emergency Provider Suppan COMPENSATOR, Brigitte Primary Care Provider Dr. Jerrell Faith MD Admit Provider Unavailable Dr. Jerrell Faith MD Other Provider Unavailable Martínez MANUEL, Dr. Lopez Attending Provider Leanne PEDERSON, Dr. Batista Other Provider Marcell MANUEL, Dr. Allan Attending Provider Unavaila ble Dr. Lester Perdomo DO Attending Provider Todd MANUEL, Dr. Zaidi Attending Provider [phone] Martínez MANUEL, Dr. Lopez Other Provider [phone] Suppan COMPENSATOR, Brigitte Referring Provider Claudia HUMAN INTELLIGENCE-CKalyn Attending Provider Allergies Allergy Classification Reported Allergen(s) Allergy Type Date of Onset Reaction(s) Facility (20 sources) lisinopril; Translations: [LISINOPRIL] Drug Allergy 0 Cough [facility] Work Phone: Comment on above: cough (6 sources) sulfADIAZINE Drug Allergy 7 [facility] Work Phone: (20 sources) Sulfonamides (Antibiotic); Translations: [SULFA (SULFONAMIDE ANTIBIOTICS)] Drug Allergy 6 [facility] (4 sources) Sulfonamides (Antibiotic) Allergy to substance 2 Rash [facility] (1 source) Lisinopril Drug Allergy 5 [facility] (1 source) Sulfonamides (Antibiotic) Drug allergy (disorder) 5 [facility] Medications Current Medications Medication Drug Class(es) Dates Sig (Normalized) Sig (Original) amLODIPine 10 mg oral tablet (20 sources) Dihydropyridine Calcium Channel Becka Start: 09-15-2024 End: 09-15-2025 take 1 tablet by mouth once daily amLODIPine (NORVASC) 10 mg tablet Indications: Essential hypertension, benign Take 1 tablet by mouth once daily. 90 tablet 3 09/15/2024 09/15/2025 Active Start: 09-15-2024 take 2 tablets by mo [facility] once daily Amlodipine 5 mg tablet Active 10 mg PO DAILY 0 September 15, 2024 2:40pm Start: 02-25-2024 End: 02-24-2025 take 1 tablet by mouth once daily Amlodipine 5 mg tablet Discontinued 5 mg PO DAILY September 07, 2024 1:00am September 15, 2024 2:40pm Start: 02-19-2024 End: 09-07-2024 take 5 mg by mouth once daily Amlodipine 10 mg tablet Discontinued 5 mg PO DAILY February 19, 2024 11:53am September 07, 2024 4:22pm Start: 07-07-2023 End: 02-25-2024 take 1 tablet by mouth once daily amLODIPine (NORVASC) 10 mg tablet Take 1 tablet by mouth once daily. 90 tablet 3 07/07/2023 02/25/2024 Discontinued (Clinical Decision) Start: 07-07-2023 take 1 tablet by lissa th once daily amLODIPine (NORVASC) 10 mg tablet Take 1 tablet by mouth once daily. 90 tablet 3 07/07/2023 Active Start: 07-07-2023 take 1 tablet by lissa th once daily amLODIPine (NORVASC) 10 mg tablet Take 1 tablet by mouth once daily. 90 tablet 3 07/07/2023 Active Start: 09-04-2019 End: 02-19-2024 take 1 tablet by mouth once daily Amlodipine 10 mg tablet Discontinued 10 mg PO DAILY September 04, 2019 1:00am February 19, 2024 11:53am Start: 08-20-2017 End: 09-04-2019 take 2 tablets by mouth once daily Amlodipine 5 MG tablet Discontinued 10 mg PO DAILY August 20, 2017 10:21am September 04, 2019 2:12pm Start: 08-20-2017 End: 09-04-2019 take 10 mg by mouth once daily Amlodipine Discontinued 10 MG PO DAILY August 20, 2017 9:21am September 04, 2019 1:12pm Start: 03-17-2014 End: 08-20-2017 take 1 tablet by mouth once daily Amlodipine 5 MG tablet Discontinued 5 mg PO DAILY March 17, 2014 12:00am August 20, 2017 10:23am Comment on above: Take 1 tablet by lissa th once daily. ascorbic acid 1000 mg oral tablet (10 sources) Vitamin C Start: 01-18-2020 take 1 tablet by mouth once daily Ascorbic Acid (Vitamin C) 1,000 MG tablet Active 1000 mg PO DAILY January 18, 2020 12:00am Start: 03-17-2014 End: 09-04-2019 take 2 tablets by mouth once daily Ascorbic Acid (Vitamin C) 500 MG tablet Discontinued 1000 mg PO DAILY@799March 17, 2014 12:00am September 04, 2019 2:14pm Start: 03-17-2014 End: 09-04-2019 take 1000 mg by mouth once daily Ascorbic Acid (Vitamin C) Discontinued 1000 MG PO DAILY@799March 16, 2014 11:00pm September 04, 2019 1:14pm atorvastatin 10 mg oral tablet (20 sources) HMG-CoA Reductase Inhibitor Start: 08-07-2023 End: 03-27-2024 take 1 tablet by mouth once daily atorvastatin (LIPITOR) 10 mg tablet Indications: S/P primary angioplasty with coronary stent , PAD (peripheral artery disease) , Hyperlipidemia LDL goal Take 1 tablet by mouth once daily. 90 tablet 3 03/27/2024 Active Start: 08-07-2023 take 1 tablet by lissa th once daily atorvastatin (LIPITOR) 10 mg tablet Indications: S/P primary angioplasty with coronary stent , Hyperlipidemia LDL goal , PAD (peripheral artery disease) (HCC) Take 1 tablet by mouth once daily. 90 tablet 3 08/07/2023 Active Start: 08-07-2023 take 1 tablet by lissa th once daily atorvastatin (LIPITOR) 10 mg tablet Indications: S/P primary angioplasty with coronary stent , Hyperlipidemia LDL goal , PAD (peripheral artery disease) (HCC) Take 1 tablet by mouth once daily. 90 tablet 3 08/07/2023 Active Start: 08-07-2023 take 1 tablet by lissa th once daily atorvastatin (LIPITOR) 10 mg tablet Indications: S/P primary angioplasty with coronary stent , Hyperlipidemia LDL goal , PAD (peripheral artery disease) (HCC) Take 1 tablet by mouth once daily. 90 tablet 3 08/07/2023 Active Start: 09-09-2019 End: 06-28-2023 take 1 tablet by mouth once daily Atorvastatin 10 mg tablet Discontinued 10 mg PO DAILY 90 October 29, 2019 4:09pm August 25, 2020 11:42pm Comment on above: Take 1 tablet by lissa th once daily. ciprofloxacin 500 mg oral tablet (2 sources) Quinolone Antimicrobial Start: 02-25-20 End: 03-01-20 take 1 tablet by mouth twice daily ciprofloxacin HCl (CIPRO) 500 mg tablet Indications: Left sided abdominal pain Take 1 tablet by mouth two times a day for 5 days. 10 tablet 0 02/25/2024 03/01/2024 Active citalopram 20 mg oral tablet (20 sources) Serotonin Reuptake Inhibitor Start: 08-06-19 End: 03-27-20 take 1 tablet by mouth once daily citalopram (CELEXA) 20 mg tablet Indications: Anxiety state Take 1 tablet by mouth once daily. 90 tablet 3 03/27/2024 Active Start: 08-06-2023 take 1 tablet by lissa th once daily citalopram (CELEXA) 20 mg tablet Indications: Anxiety state Take 1 tablet by mouth once daily. 90 tablet 3 08/06/2023 Active Start: 08-06-2023 take 1 tablet by lissa th once daily citalopram (CELEXA) 20 mg tablet Indications: Anxiety state Take 1 tablet by mouth once daily. 90 tablet 3 08/06/2023 Active Start: 08-06-2023 take 1 tablet by lissa th once daily citalopram (CELEXA) 20 mg tablet Indications: Anxiety state Take 1 tablet by mouth once daily. 90 tablet 3 08/06/2023 Active Start: 03-17-2014 End: 06-28-2023 take 1 tablet by mouth once daily Citalopram 20 MG tablet Active 20 mg PO DAILY March 17, 2014 12:00am Comment on above: Take 1 tablet by lissa th once daily. COMPLEX C SR 500 MG-25 MG-25 MG TAB (20 sources) Start: 03-15-2006 COMPLEX C SR 500 MG-25 MG-25 MG TAB 2 tabs daily 0 03/15/2006 Active Comment on above: 2 tabs daily finasteride 5 mg oral tablet (20 sources) 5-alpha Reductase Inhibitor Start: 08-06-2023 End: 03-27-2024 take 1 tablet by mouth once daily finasteride (PROSCAR) 5 mg tablet Indications: Benign prostatic hyperplasia with nocturia Take 1 tablet by mouth once daily. 90 tablet 3 03/27/2024 Active Start: 08-06-2023 take 1 tablet by lissa th once daily finasteride (PROSCAR) 5 mg tablet Indications: Benign prostatic hyperplasia with nocturia Take 1 tablet by mouth once daily. 90 tablet 3 08/06/2023 Active Start: 08-06-2023 take 1 tablet by lissa th once daily finasteride (PROSCAR) 5 mg tablet Indications: Benign prostatic hyperplasia with nocturia Take 1 tablet by mouth once daily. 90 tablet 3 08/06/2023 Active Start: 08-06-2023 take 1 tablet by lissa th once daily finasteride (PROSCAR) 5 mg tablet Indications: Benign prostatic hyperplasia with nocturia Take 1 tablet by mouth once daily. 90 tablet 3 08/06/2023 Active Start: 08-26-2020 End: 06-28-2023 take 1 tablet by mouth once daily Finasteride 5 MG tablet Active 5 mg PO DAILY August 26, 2020 1:00am Comment on above: Take 1 tablet by lissa th once daily. hydroCHLOROthiazide 25 mg oral tablet (20 sources) Thiazide Diuretic Start: Hydrochlorothiazide 25 mg tablet Active 12.5 mg PO DAILY September 07, 2024 1:00am Start: 09-25-2023 End: 03-27-2024 take 0.5 tablet by mouth once daily hydroCHLOROthiazide 25 mg tablet Indications: Essential hypertension, benign Take 0.5 tablets by mouth once daily. 90 tablet 3 03/27/2024 Active Start: 08-06-2023 End: 09-25-2023 take 1 tablet by mouth once daily hydroCHLOROthiazide 25 mg tablet Indications: Essential hypertension, benign Take 1 tablet by mouth once daily. 90 tablet 3 08/06/2023 09/25/2023 Discontinued (Adjust Sig - Block E-Cancel) Start: 08-06-2023 take 1 tablet by lissa th once daily hydroCHLOROthiazide 25 mg tablet Indications: Essential hypertension, benign Take 1 tablet by mouth once daily. 90 tablet 3 08/06/2023 Active Start: 08-06-2023 take 1 tablet by lissa th once daily hydroCHLOROthiazide 25 mg tablet Indications: Essential hypertension, benign Take 1 tablet by mouth once daily. 90 tablet 3 08/06/2023 Active Start: 08-06-2023 take 1 tablet by lissa th once daily hydroCHLOROthiazide 25 mg tablet Indications: Essential hypertension, benign Take 1 tablet by mouth once daily. 90 tablet 3 08/06/2023 Active Start: 10-02-2019 End: 09-07-2024 take 1 tablet by mouth once daily Hydrochlorothiazide 25 mg tablet Discontinued 25 mg PO DAILY September 20, 2020 3:15pm September 07, 2024 4:22pm Start: 03-17-2014 End: 10-02-2019 take 1 capsule by mouth once daily Hydrochlorothiazide 12.5 MG capsule Discontinued 12.5 mg PO DAILY March 17, 2014 12:00am October 02, 2019 5:07pm Comment on above: Take 1 tablet by lissa th once daily. Take 0.5 tablets by mouth once daily. lactobacillus acidophilus [id number] unt oral capsule (20 sources) Start: 08-04-2023 Lactobacillus Acidophilus 1 billion cell capsule Active 1000 NMA PO DAILY August 04, 2023 1:00am Start: 08-04-2023 Lactobacillus Acidophilus Active 1000 MMU CELLS PO DAILY August 04, 2023 12:00am Lactobacillus ac idophilus (PROBIOTIC ACIDOPHILUS ORAL) Take by mouth. Active Lactobacillus ac idophilus (PROBIOTIC ACIDOPHILUS ORAL) Take by mouth. 0 Active Comment on above: Take by mouth. 24 hr metoprolol succinate 25 mg extended release oral tablet (20 sources) beta-Adrenergic Becka Start: 11-11-2021 End: 03-27-2024 take 1 tablet by mouth once daily Metoprolol Succinate 25 mg tablet extended release 24 hr Active 25 mg PO DAILY August 01, 2023 1:00am Start: 09-30-2019 End: 04-25-2021 take 1 tablet by mouth once daily Metoprolol Succinate 25 mg tablet extended release 24 hr Discontinued 25 mg PO DAILY September 20, 2020 3:15pm April 25, 2021 10:20am Start: 09-04-2019 End: 09-30-2019 take 1 tablet by mouth once daily Metoprolol Succinate (Toprol Xl) 50 mg tablet extended release 24 hr Discontinued 50 mg PO DAILY September 04, 2019 1:00am September 30, 2019 7:58pm Comment on above: Take 1 tablet by lissa once daily. HOLD 04/18/21 Take 1 tablet by lissa th once daily. metroNIDAZOLE 500 mg oral tablet (2 sources) Nitroimidazole Antimicrobial Start: 02-25-20 End: 03-01-20 take 1 tablet by mouth three times daily metroNIDAZOLE (FLAGYL) 500 mg tablet Indications: Left sided abdominal pain Take 1 tablet by mouth three times a day for 5 days. 15 tablet 0 02/25/2024 03/01/2024 Active mirtazapine 7.5 mg oral tablet (6 sources) Start: 09-19-19 End: 03-18-20 take 1 tablet by mouth at bedtime as needed for sleep Mirtazapine (REMERON) 7.5 mg tablet Indications: Chronic insomnia Take 1 tablet by mouth at bedtime as needed. For sleep 30 tablet 5 09/19/2024 03/18/2025 Active Multivitamin 1 EACH tablet (1 source) Start: 05-16-20 17 Multivitamin 1 EACH tablet Active 1 NMA PO DAILY May 16, 2017 12:00am Multivitamin preparation (20 sources) Start: 05-16-20 17 Multivitamin Active 1 EACH PO DAILY May 15, 2017 11:00pm Start: 05-16-2017 Multivitamin A ctive 1 EACH PO DAILY May 16, 2017 12:00am MULTIVITAMIN (MU LTIPLE VITAMINS ORAL) Take by mouth once daily. Active MULTIVITAMIN (MU LTIPLE VITAMINS ORAL) Take by mouth once daily. 0 Active Comment on above: Take by mouth once d aily. pantoprazole 40 mg delayed release oral tablet (15 sources) Proton Pump Inhibitor Start: 4 End: 5 take 1 tablet by mouth once daily Pantoprazole 40 mg tablet,delayed release (DR/EC) Active 40 mg PO DAILY September 07, 2024 1:00am tamsulosin hydrochloride 0.4 mg oral capsule (20 sources) alpha-Adrenergic Becka Start: 3 End: 5 take 2 capsules by mouth once daily tamsulosin (FLOMAX) 0.4 mg Indications: Benign prostatic hyperplasia with nocturia Take 2 capsules by mouth once daily. 180 capsule 3 09/19/2024 Active Start: 09-04-2019 End: 11-27-2022 take 1 capsule by mouth once daily Tamsulosin 0.4 mg capsule Active 0.4 mg PO DAILY September 04, 2019 1:00am Start: 03-17-2014 End: 08-20-2017 take 1 capsule by mouth once daily Tamsulosin 0.4 MG capsule Discontinued 0.4 mg PO DAILY March 17, 2014 12:00am August 20, 2017 10:23am Comment on above: Take 1 capsule by mo uth once daily. Take 2 capsules by m outh once daily. Completed/Discontinued Medications Medication Drug Class(es) Dates Sig (Normalized) Sig (Original) acetaminophen 325 mg / HYDROcodone bitartrate 5 mg oral tablet (18 sources) Opioid Agonist Start: 02-18-2023 End: 02-19-2024 Hydrocodone-Acetami nophen 5-325 mg tablet Discontinued 1 {tbl} PO EVERY 6 HOURS as needed for PAIN August 01, 2023 1:00am February 19, 2024 11:14am Start: 02-18-2023 End: 08-01-2023 take 1 tablet by mouth every six hours Hydrocodone-Acetaminophen Active 1 TABLE T PO EVERY 6 HOURS August 01, 2023 12:00am Start: 05-22-2017 End: 08-20-2017 Hydrocodone-Acetaminophen 1 TABLET tablet Discontinued 1 {tbl} PO EVERY 6 HOURS NEEDED as needed for Pain May 22, 2017 12:00am August 20, 2017 10:23am Start: 05-22-2017 End: 08-20-2017 take 1 tablet by mouth every six hours as needed Hydrocodone-Acetaminophen Discontinued 1 TABLET PO EVERY 6 HOURS NEEDED May 21, 2017 11:00pm August 20, 2017 9:23am End: 06-28-2023 take 1 tablet by mouth every eight hours as needed HYDROcodone-acetaminophen (NORCO) 5-325 mg per tablet Take 1 tablet by mouth every 8 hours as needed for pain. 0 06/28/2023 Discontinued Comment on above: Take 1 tablet by lissa every 8 hours as needed for pain. aspirin 81 mg delayed release oral tablet (20 sources) Platelet Aggregation Inhibitor, Nonsteroidal Anti-inflammatory Drug Start: 04-25-2021 End: 02-19-2024 take 1 tablet by mouth once daily Aspirin (Adult Aspirin Regimen) 81 mg tablet,delayed release (DR/EC) Discontinued 81 mg PO DAILY April 25, 2021 12:00am February 19, 2024 11:13am Start: 08-23-2020 End: 10-19-2020 take 1 tablet by mouth once daily Aspirin 81 MG tablet,chewable Discontinued 81 mg PO DAILY August 23, 2020 1:00am October 19, 2020 11:01am Start: 03-17-2014 End: 01-19-2020 take 1 tablet by mouth once daily Aspirin 81 MG tablet,chewable Discontinued 81 mg PO DAILY@0800 March 17, 2014 12:00am January 19, 2020 10:51am Start: 03-15-2006 End: 02-25-2024 ASPIRIN 81 MG TAB Take one(1 ) tablet daily. 0 03/15/2006 02/25/2024 Discontinued (Clinical Decision) Comment on above: Take one(1) tablet d aily. busPIRone hydrochloride 10 mg oral tablet (20 sources) Start: 12-26-2023 End: 09-07-2024 take 1 tablet by mouth three times daily Buspirone 10 mg tablet Discontinued 10 mg PO THREE TIMES A DAY February 19, 2024 12:00am September 07, 2024 4:21pm Start: 02-16-2023 End: 02-19-2024 take 1 tablet by mouth three times daily Buspirone 5 mg tablet Discontinued 5 mg PO THREE TIMES A DAY August 01, 2023 1:00am February 19, 2024 11:14am Comment on above: Take 1 tablet by lissa th three times daily. cefdinir 300 mg oral capsule (2 sources) Cephalosporin Antibacterial Start: End: take 1 capsule by mouth twice daily Cefdinir 300 mg capsule Discontinued 300 mg PO TWICE A DAY August 04, 2023 1:00am February 19, 2024 11:15am cephalexin 500 mg oral capsule (5 sources) Cephalosporin Antibacterial Start: End: take 1 capsule by mouth three times daily Cephalexin (Keflex) 500 mg capsule Discontinued 500 mg PO THREE TIMES A DAY September 21, 2017 1:00am September 04, 2019 2:14pm space evenly during waking hours clopidogrel 75 mg oral tablet (20 sources) [id number] Platelet Inhibitor Start: End: take 1 tablet by mouth once daily Clopidogrel (Plavix) 75 mg tablet Discontinued 75 mg PO DAILY June 28, 2020 2:05pm August 25, 2020 11:42pm Comment on above: Take 1 tablet by lissa th once daily. cyclobenzaprine hydrochloride 10 mg oral tablet (5 sources) Muscle Relaxant Start: End: take 1 tablet by mouth three times daily as needed for muscle spasms Cyclobenzaprine 10 mg tablet Discontinued 10 mg PO THREE TIMES A DAY as needed for muscle spasm September 18, 2021 1:00am August 01, 2023 5:03pm dexamethasone 6 mg oral tablet (15 sources) Corticosteroid Start: End: take 1 tablet by mouth once daily Dexamethasone 6 MG tablet Discontinued 6 mg PO DAILY September 02, 2020 12:26pm April 25, 2021 10:21am take for 2 more days ferrous sulfate 325 mg oral tablet (5 sources) Start: End: take 1 tablet by mouth twice daily Ferrous Sulfate 325 MG tablet Discontinued 325 mg PO TWICE A DAY August 23, 2020 1:00am April 25, 2021 10:21am 12 hr guaiFENesin 1200 mg extended release oral tablet (2 sources) Start: End: take 1 tablet by mouth twice daily, then take 1 tablet by mouth every twelve hours Guaifenesin (Mucus Relief Er) 1,200 mg Tablet Extended Release 12hr Discontinued 1200 mg PO TWICE A DAY August 04, 2023 1:00am February 19, 2024 11:15am latanoprost 0.05 mg/ml ophthalmic solution (8 sources) Prostaglandin Analog Start: End: take 1 drop(s) into the eye(s) at bedtime Latanoprost 0.005 % drops Discontinued 1 NMA OPHTHALMIC AT BEDTIME August 01, 2023 1:00am September 07, 2024 4:21pm INSTILL ONE DROP INTO BOTH EYES AT BEDTIME Start: 08-01-2023 take 1 drop(s) into the eye(s) at bedtime Latanoprost Active 1 DRP OPHTHALMIC AT BEDTIME August 01, 2023 12:00am INSTILL ONE DROP INTO BOTH EYES AT BEDTIME Start: 08-26-2020 End: 08-01-2023 Latanoprost (Pf) 7.5 ML drop s Discontinued 1 NMA EACH EYE AT BEDTIME August 26, 2020 1:00am August 01, 2023 4:41pm Start: 08-26-2020 End: 08-01-2023 Latanoprost (Pf) Discontinue d 1 DRP EACH EYE AT BEDTIME August 26, 2020 12:00am August 01, 2023 3:41pm Multivitamin With Minerals (2 sources) Start: 08-01-2023 End: 08-01-2023 take 1 tablet by mouth once daily Multivitamin With Minerals Discontinued 1 TABLET PO DAILY August 01, 2023 12:00am August 01, 2023 4:08pm Multivitamin With Minerals tablet (1 source) Start: 08-01-2023 End: 08-01-2023 Multivitamin With Minerals tablet Discontinued 1 {tbl} PO DAILY August 01, 2023 1:00am August 01, 2023 5:08pm mupirocin 0.02 mg/mg topical ointment (5 sources) RNA Synthetase Inhibitor Antibacterial Start: 08-23-2020 End: 08-01-2023 Mupirocin 1 APPLIC ointment Discontinued 1 NMA TOPICAL THREE TIMES A DAY August 23, 2020 1:00am August 01, 2023 5:08pm Start: 08-23-2020 End: 08-01-2023 Mupirocin Discontinued 1 STEPHEN LIC TOPICAL THREE TIMES A DAY August 23, 2020 12:00am August 01, 2023 4:08pm naproxen 500 mg oral tablet (6 sources) Nonsteroidal Anti-inflammatory Drug Start: 05-08-2017 take 1 tablet by mouth twice daily as needed for pain NAPROXEN 500 MG TABS One tablet by mouth twice daily as needed for pain and inflammation with food NAPROXEN [id number] Anjelica Walden niacin 500 mg extended release oral capsule (20 sources) Nicotinic Acid Start: 09-16-2019 End: 02-19-2024 take 1 capsule by mouth once daily Niacin 500 mg capsule, extended release Discontinued 500 mg PO DAILY September 16, 2019 1:00am February 19, 2024 11:15am Start: 09-16-2019 take 500 mg by mouth twice daily Niacin Active 500 MG PO TWICE A DAY September 16, 2019 12:00am Start: 05-08-2017 take 1 tablet by [facility] twice daily NIACIN 500 MG TABS One tablet by mouth twice daily NIACIN [id number] Anjelicashaheed Walden Start: 03-17-2014 End: 09-09-2019 take 1 tablet by mouth twice daily Niacin 500 MG tablet extended release 24 hr Discontinued 500 mg PO TWICE A DAY March 17, 2014 12:00am September 09, 2019 9:07am Start: 03-27-2008 End: 06-28-2023 NIACIN 500 MG TAB Take one(1 ) tablet two(2) times daily. 0 03/27/2008 06/28/2023 Discontinued Comment on above: Take one(1) tablet t wo(2) times daily. nitroglycerin 0.4 mg sublingual tablet (20 sources) Nitrate Vasodilator Start: 08-25-19 End: 08-01-19 24 Nitroglycerin 0.4 mg tablet, sublingual Discontinued 0.4 mg SL every 5 to 15 minutes September 04, 2019 1:00am August 01, 2023 4:53pm Comment on above: Dissolve 1 tablet un emilia the tongue every 5 minutes as needed for Chest Pain. omeprazole 40 mg delayed release oral capsule (20 sources) Proton Pump Inhibitor Start: 04-30-20 End: 09-07-19 take 1 capsule by mouth once daily Omeprazole 40 mg capsule,delayed release(DR/EC) Discontinued 40 mg PO DAILY August 01, 2023 1:00am September 07, 2024 4:22pm Start: 11-27-2022 End: 01-12-2024 take 2 capsules by mouth once daily omeprazole (PRILOSEC) 20 mg capsule Indications: Gastroesophageal reflux disease, unspecified whether esophagitis present Take 2 capsules by mouth once daily. 180 capsule 3 01/12/2023 04/30/2023 Discontinued Start: 03-17-2014 End: 08-01-2023 take 1 capsule by mouth once daily Omeprazole 20 MG capsule Discontinued 20 mg PO DAILY March 17, 2014 12:00am August 01, 2023 4:41pm Comment on above: Take 1 capsule by [facility]. Take 2 capsules by m out once daily. predniSONE 20 mg oral tablet (3 sources) Start: 08-04-2023 End: 02-19-2024 take 1 tablet by mouth twice daily Prednisone 20 mg tablet Discontinued 20 mg PO TWICE A DAY August 04, 2023 1:00am Lisa 23rd, 2024 11:15am Start: 01-31-2023 End: 02-05-2023 take 3 tablets by mouth once daily predniSONE (DELTASONE) 10 mg tablet Take 3 tablets by mouth once daily for 5 days. 15 tablet 0 01/31/2023 02/05/2023 Active Comment on above: Take 3 tablets by mo ut once daily for 5 days. rOPINIRole 4 mg oral tablet (20 sources) Nonergot Dopamine Agonist Start: 1 End: 4 take 1 tablet by mouth three times daily Ropinirole 4 MG tablet Discontinued 4 mg PO THREE TIMES A DAY August 26, 2020 1:00am April 25, 2021 10:22am Comment on above: Take 1 tablet by lissa th three times daily. Saw palmetto extract (6 sources) Start: 7 take 1 tablet by mouth twice daily [facility] SAW PALMETTO CAPS 320 mg. One tablet by mouth twice daily SAW PALMETTO (SERENOA REPENS) CAPS [id number] Anjelica Walden traZODone hydrochloride 50 mg oral tablet (20 sources) Serotonin Reuptake Inhibitor Start: 3 End: 5 take 1 tablet by mouth at bedtime Trazodone 50 mg tablet Discontinued 50 mg PO AT BEDTIME August 01, 2023 1:00am September 07, 2024 4:22pm Start: 11-27-2022 End: 01-12-2023 take 0.5 tablet by mouth once daily at bedtime traZODone (DESYREL) 50 mg tablet Indications: Anxiety state , Chronic insomnia Take 0.5 tablets by mouth daily at bedtime. 30 tablet 2 11/27/2022 01/12/2023 Discontinued Comment on above: Take 0.5 tablets by mouth daily at bedtime. Take 1 tablet by lissa th daily at bedtime. Problems Active Problems Problem Classification Problem Date Documented Da te Episodic/Chronic Alcohol-related disorders (1 source) Alcohol abuse; Translations: [Alcohol abuse, uncomplicated] 12-26-2023 Chronic Anxiety disorders (20 sources) Anxiety state; Translations: [Generalized anxiety disorder] Onset: 9 05-08-2017 Chronic Chronic obstructive pulmonary disease and bronchiectasis (6 sources) Chronic obstructive pulmonary disease, unspecified; Translations: [Chronic obstructive pulmonary disease with acute lower respiratory infection] Onset: 5 10-27-2024 Chronic Coronary atherosclerosis and other heart disease (20 sources) Angina pectoris; Translations: [Angina pectoris, unspecified] Onset: 0 12-22-2020 Chronic Deficiency and other anemia (20 sources) Iron deficiency anemia due to blood loss; Translations: [Iron deficiency anemia secondary to blood loss (chronic)] Onset: 0 01-27-2020 Chronic Deficiency and other anemia (5 sources) Chronic anemia; Translations: [Anemia, unspecified] 10-18-2020 Episodic Disorders of lipid metabolism (20 sources) Hyperlipidemia; Translations: [Hyperlipidemia, unspecified] Onset: 6 05-08-2017 Chronic Diverticulosis and diverticulitis (6 sources) Diverticular disease of colon; Translations: [Diverticulosis of large intestine without perforation or abscess without bleeding] Onset: 7 05-08-2017 Chronic E Codes: Fall (20 sources) Fall; Translations: [Unspecified fall, initial encounter] Onset: 2 09-20-2021 Episodic Esophageal disorders (20 sources) Gastroesophageal reflux disease; Translations: [Gastro-esophageal reflux disease without esophagitis] Onset: 1 05-08-2017 Chronic Essential hypertension (20 sources) Essential hypertension; Translations: [Benign essential hypertension] Onset: 6 05-08-2017 Chronic Fluid and electrolyte disorders (5 sources) Hypokalemia; Translations: [Hypokalemia] 08-01-2023 Episodic Genitourinary symptoms and ill-defined conditions (11 sources) Blood in urine; Translations: [Hematuria, unspecified] Onset: 3 09-04-2019 Episodic Hyperplasia of prostate (20 sources) Benign prostatic hyperplasia; Translations: [Benign prostatic hyperplasia without lower urinary tract symptoms] Onset: 3 05-08-2017 Chronic Miscellaneous mental health disorders (5 sources) Chronic insomnia; Translations: [Psychophysiologic insomnia] Chronic Nonspecific chest pain (5 sources) Chest pain; Translations: [Chest pain, unspecified] 08-23-2019 Episodic Other aftercare (1 source) Post-discharge follow-up; Translations: [Encounter for follow-up examination after completed treatment for conditions other than malignant neoplasm] 09-25-2023 Episodic Other aftercare (1 source) Drug therapy finding; Translations: [Other manager intermediate (current) drug therapy] 12-24-2023 Episodic Other bone disease and musculoskeletal deformities (1 source) Somatic dysfunction of left sacroiliac joint; Translations: [Segmental and somatic dysfunction of sacral region] 02-08-2023 Episodic Other circulatory disease (5 sources) Peripheral arterial occlusive disease; Translations: [Peripheral vascular disease, unspecified] Onset: 7 05-08-2017 Chronic Other gastrointestinal disorders (1 source) Diarrhea; Translations: [Diarrhea, unspecified] 06-28-2023 Episodic Other hereditary and degenerative nervous system conditions (20 sources) Restless legs; Translations: [Restless legs syndrome] Onset: 0 01-27-2020 Chronic Other lower respiratory disease (5 sources) Dyspnea on exertion; Translations: [Other forms of dyspnea] 10-18-2020 Episodic Other lower respiratory disease (10 sources) Hypoxia; Translations: [Hypoxemia] 08-01-2023 Episodic Other lower respiratory disease (4 sources) Dyspnea; Translations: [Shortness of breath] 08-01-2023 Episodic Other lower respiratory disease (3 sources) Hypoxemia; Translations: [Hypoxemia] Onset: 5 08-01-2023 Episodic Other nervous system disorders (1 source) Left-sided piriformis syndrome; Translations: [Lesion of sciatic nerve, left lower limb] 02-08-2023 Chronic Other nutritional; endocrine; and metabolic disorders (20 sources) Hyperbilirubinemia; Translations: [Other disorders of bilirubin metabolism] Onset: 6 05-08-2017 Chronic Other nutritional; endocrine; and metabolic disorders (1 source) Other disorders of bilirubin metabolism; Translations: [Hyperbilirubinemia] Onset: 6 Chronic Other screening for suspected conditions (not mental disorders or infectious disease) (16 sources) CT of head abnormal; Translations: [Abnormal findings on diagnostic imaging of skull and head, not elsewhere classified] Episodic Other upper respiratory disease (4 sources) Bleeding from nose; Translations: [Epistaxis] 06-29-2022 Episodic Parkinson`s disease (20 sources) Parkinson's disease; Translations: [Parkinson's disease] Onset: 7 07-11-2017 Chronic Parkinson`s disease (1 source) Parkinson`s disease; Translations: [Parkinson's disease without dyskinesia, with fluctuating manifestations (HCC)] Onset: 7 Peripheral and visceral atherosclerosis (20 sources) Peripheral vascular disease, unspecified; Translations: [Peripheral vascular disease, unspecified] Onset: 4 02-28-2014 Chronic Comment on above: left superficial fem oral artery, 7 x 30 mm Protege stenting 03/18/14; TELEPHONE SALES AGENT 5 x 2 Powerflex and 6 x 6 coated balloon gluten ox therapy LLE 08/2017 Pneumonia (except that caused by tuberculosis or sexually transmitted disease) (6 sources) Pneumonia; Translations: [Pneumonia, unspecified organism] 08-01-2023 Episodic Pulmonary heart disease (3 sources) Pulmonary hypertension, unspecified; Translations: [Pulmonary hypertension] Onset: 5 10-16-2024 Chronic Comment on above: PASP 86 mmHg Residual codes; unclassified (1 source) Forgetful; Translations: [Other general symptoms and signs] 12-24-2023 Episodic Spondylosis; intervertebral disc disorders; other back problems (10 sources) Acute thoracic back pain; Translations: [Pain in thoracic spine] Episodic Superficial injury; contusion (1 source) Abrasion, right lower leg, initial encounter; Translations: [Abrasion or friction burn of hip, thigh, leg, and ankle, without mention of infection] 05-25-2023 Episodic Unclassified (1 source) out of office, please call to schedule appointment Urinary tract infections (5 sources) Urinary tract infectious disease; Translations: [Urinary tract infection, site not specified] 09-04-2019 Episodic Viral infection (10 sources) COVID-19; Translations: [Severe acute respiratory syndrome coronavirus 2 (SARS-CoV-2) detected] Onset: 1 02-07-2022 Episodic Past or Other Problems Problem Classification Problem Date Documented Da te Episodic/Chronic Abdominal hernia (5 sources) Right inguinal hernia ; Translations: [Unilateral inguinal hernia, without obstruction or gangrene, not specified as recurrent] Onset: 05-08-2017 05-08-2017 Episodic Abdominal pain (3 sources) Left sided abdominal pain; Translations: [Unspecified abdominal pain] Onset: 02-25-2024 02-25-2024 Episodic Administrative/social admission (19 sources) Patient encounter status; Translations: [Persons encountering health services in other specified circumstances] Onset: 08-11-2023 08-11-2023 Episodic Coronary atherosclerosis and other heart disease (4 sources) Presence of coronary angioplasty implant and graft; Translations: [Percutaneous transluminal coronary angioplasty status] Onset: 09-08-2019 Episodic Gastritis and duodenitis (6 sources) Acute gastritis; Translations: [Acute gastritis without bleeding] Onset: 05-08-2017 05-08-2017 Episodic Other aftercare (1 source) Other manager intermediate (current) drug therapy; Translations: [Current use of proton pump inhibitor] Onset: 12-25-2023 Episodic Other circulatory disease (5 sources) Stented artery; Translations: [Peripheral vascular angioplasty status with implants and grafts] Onset: 05-08-2017 05-08-2017 Episodic Other circulatory disease (5 sources) History of peripheral vascular angioplasty; Translations: [Peripheral vascular angioplasty status] Onset: 08-30-2017 02-08-2022 Episodic Comment on above: left superficial fem oral artery, 7 x 30 mm Protege stenting 03/18/14; TELEPHONE SALES AGENT 5 x 2 Powerflex and 6 x 6 coated balloon gluten ox therapy 08/2017 Other circulatory disease (1 source) Peripheral vascular angioplasty status; Translations: [Other postprocedural status] Onset: 08-30-2017 08-04-2023 Episodic Other lower respiratory disease (3 sources) Shortness of breath; Translations: [Shortness of breath] Onset: 02-24-2024 08-01-2023 Episodic Residual codes; unclassified (1 source) Other general symptoms and signs; Translations: [Forgetfulness] Onset: 12-25-2023 Episodic Respiratory failure; insufficiency; arrest (adult) (20 sources) Acute respiratory failure; Translations: [Acute respiratory failure with hypoxia] Onset: 09-25-2023 09-25-2023 Episodic Results Test Name Value Interpretation Reference Range Facility [facility] 10-31-2024 [facility] Telephone ([facility]) CLARK LYLES ([id number]) 1935 M Date Time Provider Department 10/31/24 [facility] During your visit today, we recorded the following information about you: Jaqueline Andre RN 10/31/2024 3:35 PM Signed Palliative Medicine Referral Assessment Referral Accepted: No, Reason for Denial: Chart reviewed, pal med order meant for [facility] in [place]. Jaqueline Andre RN October 31, 2024 Allergies As of Date: 10/31/2024 Noted Allergy Reaction LISINOPRIL 12/28/2009 3 - Cough SULFA (SULFONAMIDE ANTIBIOTICS) 03/09/2006 4 - Hives Date Reviewed: 09/19/2024 Reviewed by: Shirley Rivera MA - Fully Assessed Reason for Visit: [id number] [Other] Initial Consult [665] Prescriptions as of 10/31/2024 - Mirtazapine (REMERON) 7.5 mg tablet Take 1 tablet by mouth at bedtime as needed. For sleep - tamsulosin (FLOMAX) 0.4 mg Take 2 capsules by mouth once daily. - amLODIPine (NORVASC) 10 mg tablet Take 1 tablet by mouth once daily. - clopidogrel (PLAVIX) 75 mg tablet Take 1 tablet by mouth once daily. - atorvastatin (LIPITOR) 10 mg tablet Take 1 tablet by mouth once daily. - citalopram (CELEXA) 20 mg tablet Take 1 tablet by mouth once daily. - finasteride (PROSCAR) 5 mg tablet Take 1 tablet by mouth once daily. - hydroCHLOROthiazide 25 mg tablet Take 0.5 tablets by mouth once daily. - metoprolol succinate ER (TOPROL XL) 25 mg 24 hr tablet Take 1 tablet by mouth once daily. - pantoprazole DR (PROTONIX) 40 mg tablet Take 1 tablet by mouth once daily. - Lactobacillus acidophilus (PROBIOTIC ACIDOPHILUS ORAL) Take by mouth. - nitroglycerin sublingual (NITROQUICK) 0.4 mg SL tablet Dissolve 1 tablet under the tongue every 5 minutes as needed for Chest Pain. - MULTIVITAMIN (MULTIPLE VITAMINS ORAL) Take by mouth once daily. - COMPLEX C SR 500 MG-25 MG-25 MG TAB 2 tabs daily Meds Comments as of 04/18/2021: Taking Saw [place]. Problem List As Of Date 10/31/2024 Noted Resolved BENIGN HYPERTENSION [I10] 01/08/2006 Anxiety state [F41.1] 01/05/2009 GERD (gastroesophageal reflux disease) [K21.9] 01/10/2011 BPH (benign prostatic hyperplasia) [N40.0] 03/17/2013 PAD (peripheral artery disease) (HCC) [I73.9] 02/28/2014 Hyperlipidemia LDL goal <100 [E78.5] 03/28/2016 Hyperbilirubinemia [E80.6] 05/10/2016 Parkinson's disease (HCC) [G20.A1] 07/11/2017 Angina pectoris (HCC) [I20.9] 08/25/2019 Restless legs syndrome [G25.81] 01/27/2020 Iron deficiency anemia due to chronic blood los*01/27/2020 Coronary artery disease involving [place] rabago*12/22/2020 S/P primary angioplasty with coronary stent [Z9*12/22/2020 Fall from standing [W19.XXXA] 09/20/2021 Encounter for support and coordination of trans*08/11/2023 Acute respiratory failure with hypoxia (HCC) [J*09/25/2023 Encounter Status:Closed by JAQUELINE ANDRE on 10/31/24 [facility] 10-27-2024 [facility] ([id number]) 1935 M Date Time Provider Department 10/27/24 [facility] During your visit today, we recorded the following information about you: Amita Kim LPN 10/27/2024 3:57 PM Skyler Madrigal with [facility] calls to report family is requesting order for palliative care. Fax order to [facility] in [place]. Rohan also reports he saw pt today and is extending nurse to once a week x 2 weeks. Pt will then be discharged from Nursing. Rohan reports that Pulmonary gave new dx for pt of COPD and pulmonary htn. HIWOT Mariee Jacqueline A, APRN.GANG LEADER 10/27/2024 4:52 PM Signed Please ask patient if he wants a palliative care consult? Palliative care is not end-of-life care but symptom management and chronic disease. Consult placed if patient wishes to be referred. Shira Mcgill, ZACKARY 10/27/2024 5:14 PM Signed Pt called and is notified of providers message. Pt voices understanding and states he does not want palliative care. I told Pt he should talk it over with his family. Called and left a detailed voicemail notifying patient's Son Quincy of providers message and Pts reply. Clinic phone number was left in case he had any questions, or talked the Pt into accepting palliative care. ZACKARY Nova Amanda, RN 10/27/2024 5:51 PM Signed Pts daughter Pili called back in and reports Pt was never supposed to get call about Palliative care. I let her know there was nothing in chart or note stating that Pt is not to receive calls or a call about this issue. She states Pt is confused and now she has to deal with the mess. I let her know I left a message on her brothers phone number as well. Amita Kim LPN 10/28/2024 8:37 AM Signed Spoke to Paulino (not Rohan) with [facility]. Paulino reports that he did get a call from Pili upset that pt had been called about palliative care. I explained to Paulino that there is nothing on pt's chart that states pt should not be called. Paulino reports pt is confused at times. Pt refuses to use O2 a lot of the time and should be on 4L. Paulino requests the order still be faxed to [facility] and then daughter can go between pt and [facility] to figure out what is best for pt. Order faxed. Amita Kim LPN Allergies As of Date: 10/27/2024 Noted Allergy Reaction LISINOPRIL 12/28/2009 3 - Cough SULFA (SULFONAMIDE ANTIBIOTICS) 03/09/2006 4 - Hives Date Reviewed: 09/19/2024 Reviewed by: Shirley Rivera MA - Fully Assessed Reason for Visit: Orders [681] patient POC [Other] Primary Visit Diagnosis: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) [G20.B1] Other Visit Diagnosis:Chronic obstructive pulmonary disease with acute lower respiratory infection (HCC) [J44.0] Order(s):CONSULT TO PALLIATIVE CARE [[id number]] Order #: [id number]: 1 FUTURE Prescriptions as of 10/28/2024 - Mirtazapine (REMERON) 7.5 mg tablet Take 1 tablet by mouth at bedtime as needed. For sleep - tamsulosin (FLOMAX) 0.4 mg Take 2 capsules by mouth once daily. - amLODIPine (NORVASC) 10 mg tablet Take 1 tablet by mouth once daily. - clopidogrel (PLAVIX) 75 mg tablet Take 1 tablet by mouth once daily. - atorvastatin (LIPITOR) 10 mg tablet Take 1 tablet by mouth once daily. - citalopram (CELEXA) 20 mg tablet Take 1 tablet by mouth once daily. - finasteride (PROSCAR) 5 mg tablet Take 1 tablet by mouth once daily. - hydroCHLOROthiazide 25 mg tablet Take 0.5 tablets by mouth once daily. - metoprolol succinate ER (TOPROL XL) 25 mg 24 hr tablet Take 1 tablet by mouth once daily. - pantoprazole DR (PROTONIX) 40 mg tablet Take 1 tablet by mouth once daily. - Lactobacillus acidophilus (PROBIOTIC ACIDOPHILUS ORAL) Take by mouth. - nitroglycerin sublingual (NITROQUICK) 0.4 mg SL tablet Dissolve 1 tablet under the tongue every 5 minutes as needed for Chest Pain. - MULTIVITAMIN (MULTIPLE VITAMINS ORAL) Take by mouth once daily. - COMPLEX C SR 500 MG-25 MG-25 MG TAB 2 tabs daily Meds Comments as of 04/18/2021: Taking Saw [place]. Problem List As Of Date 10/27/2024 Noted Resolved BENIGN HYPERTENSION [I10] 01/08/2006 Anxiety state [F41.1] 01/05/2009 GERD (gastroesophageal reflux disease) [K21.9] 01/10/2011 BPH (benign prostatic hyperplasia) [N40.0] 03/17/2013 PAD (peripheral artery disease) (HCC) [I73.9] 02/28/2014 Hyperlipidemia LDL goal <100 [E78.5] 03/28/2016 Hyperbilirubinemia [E80.6] 05/10/2016 Parkinson's disease (HCC) [G20.A1] 07/11/2017 Angina pectoris (HCC) [I20.9] 08/25/2019 Restless legs syndrome [G25.81] 01/27/2020 Iron deficiency anemia due to chronic blood los*01/27/2020 Coronary artery disease involving round [place] rabago*12/22/2020 S/P primary angioplasty with coronary stent [Z9*12/22/2020 Fall from standing [W19.XXXA] 09/20/2021 Encounter for support an (more content not included)... Normal [facility] Pulmonary Visit Reporton Pulmonary Visit Report [facility] Pulmonary Medicine of [address] [place] [address] OFFICE VISIT Date of Service: 10/16/24 MR#: [id number] Acct: [id number] Name: CLARK LYLES Rep #: [id number] : 1935 Provider: MALIKA Taylor Age/Sex: 88/M Location: [facility] Status: Signed Assessment and Plan Assessment and Plan (1) Pulmonary hypertension: Status: Acute Comment: PASP 86 mmHg Plan: New. The patient has never been told that he has pulmonary hypertension. Looking at previous echocardiograms it appears as though the pulmonary hypertension has been present since 2020 when he initially measured a PASP of 44 mmHg. Repeat echocardiogram In 2023 showed a RVSP of 75 mmHg. He was recently hospitalized due to being found significantly hypoxic. Since hospital discharge she has been utilizing supplemental oxygen at 4 L/min continuous. He reports that saturations are typically 90 to 95% at rest on 4 L/min continuous. He is not currently checking saturations on ambulation. He has never had a workup to evaluate for the presence of an autoimmune disease. Given his pulmonary hypertension need to evaluate possible etiology, sending some blood work looking for autoimmune disease. We will return to the office once test results are available for review. I have encouraged him to continue compliance with his supplemental oxygen. He has noticed benefit from it. (2) COPD (chronic obstructive pulmonary disease): Status: Chronic Qualifiers: COPD type: chronic bronchitis Chronic bronchitis type: simple Qualified Code(s): J41.0 - Simple chronic bronchitis Plan: Self-reported. He has a questionable smoking history. He states that he mostly smoked pipes. Therefore, COPD is less likely due to the fact that hype tobacco is not typically inhaled. The patient is on significant supplemental oxygen flow, therefore I did explain to them there is a possibility that he will be able to complete the pulmonary function test. We will return to the office in 4 to 6 weeks for further evaluation and to discuss test results. If we are unable to obtain the pulmonary function test we may try him on an inhaler just to see if he responds well. No maintenance medications until that PFT is available for evaluation or return to the office. Orders: Orders Rheumatoid Factor Today I27.20 - Pulmonary hypertension, unspecified ANCA Today I27.20 - Pulmonary hypertension, unspecified CCP IgG Antibodies Today I27.20 - Pulmonary hypertension, unspecified GINA w/ Reflex Mult Confirm Today I27.20 - Pulmonary hypertension, unspecified PFT Complete - DLCO, Spirometry b/a bronchodilators, lung volumes 10/28/24 J44.9 - Chronic obstructive pulmonary disease, unspecified Plan Details Follow Up: 6 Weeks HPI Hospital FU Chief Complaint: Shortness of breath HPI Comments Details: This patient presents to the office today for hospital follow-up after recent hospitalization at [facility] from September 07 through September 15, 2024 for hypoxia. He is ambulatory, currently wearing supplemental oxygen and accompanied today by his daughter. This patient was seen in the emergency department with complaints of slurred speech. Initially thought CVA. However, this was ruled out. The patient's initial pulse ox readings were in the 60s. The patient did require supplemental oxygen. He was treated with bronchodilators, systemic corticosteroids and antibiotics. Temporarily he did require Airvo. CTA of the chest showed infiltrates more prominent on the right side. Negative for pulmonary embolism. Initially treated with ceftriaxone, azithromycin and vancomycin. Ultimately ceftriaxone was switched to Zosyn. The patient did complete 8 days of antibiotics and did not require any at hospital discharge. The patient was discharged on supplemental oxygen and recommend to utilize 3 L/min on exertion. The patient reports that he has been experiencing shortness of breath on exertion for quite some time. When he push mows up the hill he would notice some chest discomfort as well. He denies any cough, sputum production or hemoptysis. He denies any wheezing, chest tightness, chest pain or palpitations. He is not had any fever, chills or body aches. He has been compliant with the supplemental oxygen. He has been using 4 L/min continuous. Saturations have been 92 to 95% on the 4 L flow at rest. He admits that he has not checked it on exertion. He has noticed an improvement in his shortness of breath since being compliant with the supplemental oxygen. He continues to experience some fatigue and leg weakness. Intake Vital Signs 09/15/24 10:09 10/16/24 08:56 Height 5 ft 10 in 5 ft 10 in Weight: 166 lb BMI 23.8 BP 121/65 H Blood Pressure Location Lt brachial Position Sitting Respiration 20 H Pu (more content not included)... Normal [facility] 10-15-2024 [facility] Telephone ([facility]) CLARK LYLES ([id number]) 1935 M Date Time Provider Department 10/15/24 [facility] During your visit today, we recorded the following information about you: Radha Green, RN 10/15/2024 3:04 PM Signed Paulino- nurse- [facility]- reports he did patient eval today and will extend [facility] visits to 1 x week for 2 weeks. Pt is still on 4 L O2 after pneumonia. Pt will see pulm tomorrow. Allergies As of Date: 10/15/2024 Noted Allergy Reaction LISINOPRIL 12/28/2009 3 - Cough SULFA (SULFONAMIDE ANTIBIOTICS) 03/09/2006 4 - Hives Date Reviewed: 09/19/2024 Reviewed by: Shirley Rivera MA - Fully Assessed Reason for Visit: Patient Update [1234] Prescriptions as of 10/30/2024 - Mirtazapine (REMERON) 7.5 mg tablet Take 1 tablet by mouth at bedtime as needed. For sleep - tamsulosin (FLOMAX) 0.4 mg Take 2 capsules by mouth once daily. - amLODIPine (NORVASC) 10 mg tablet Take 1 tablet by mouth once daily. - clopidogrel (PLAVIX) 75 mg tablet Take 1 tablet by mouth once daily. - atorvastatin (LIPITOR) 10 mg tablet Take 1 tablet by mouth once daily. - citalopram (CELEXA) 20 mg tablet Take 1 tablet by mouth once daily. - finasteride (PROSCAR) 5 mg tablet Take 1 tablet by mouth once daily. - hydroCHLOROthiazide 25 mg tablet Take 0.5 tablets by mouth once daily. - metoprolol succinate ER (TOPROL XL) 25 mg 24 hr tablet Take 1 tablet by mouth once daily. - pantoprazole DR (PROTONIX) 40 mg tablet Take 1 tablet by mouth once daily. - Lactobacillus acidophilus (PROBIOTIC ACIDOPHILUS ORAL) Take by mouth. - nitroglycerin sublingual (NITROQUICK) 0.4 mg SL tablet Dissolve 1 tablet under the tongue every 5 minutes as needed for Chest Pain. - MULTIVITAMIN (MULTIPLE VITAMINS ORAL) Take by mouth once daily. - COMPLEX C SR 500 MG-25 MG-25 MG TAB 2 tabs daily Meds Comments as of 04/18/2021: Taking [place]. Problem List As Of Date 10/15/2024 Noted Resolved BENIGN HYPERTENSION [I10] 01/08/2006 Anxiety state [F41.1] 01/05/2009 GERD (gastroesophageal reflux disease) [K21.9] 01/10/2011 BPH (benign prostatic hyperplasia) [N40.0] 03/17/2013 PAD (peripheral artery disease) ([facility]) [I73.9] 02/28/2014 Hyperlipidemia LDL goal <100 [E78.5] 03/28/2016 Hyperbilirubinemia [E80.6] 05/10/2016 Parkinson's disease ([facility]) [G20.A1] 07/11/2017 Angina pectoris ([facility]) [I20.9] 08/25/2019 Restless legs syndrome [G25.81] 01/27/2020 Iron deficiency anemia due to chronic blood los*01/27/2020 Coronary artery disease involving round [place] rabago*12/22/2020 S/P primary angioplasty with coronary stent [Z9*12/22/2020 Fall from standing [W19.XXXA] 09/20/2021 Encounter for support and coordination of trans*08/11/2023 Acute respiratory failure with hypoxia (HCC) [J*09/25/2023 Encounter Status:Closed by Radha GREEN on 10/30/24 [facility] 10-03-2024 CNPN Telephone (COUMWS) CLARK LYLES ([id number]) 1935 M Date Time Provider Department 10/03/24 BRIGITTE SEGAL During your visit today, we recorded the following information about you: Mary Balderas, RN 10/03/2024 2:54 PM Signed Jamie with [facility] is calling due to he saw patient today and has 2 things: 1) is they are going to re-certify patient for once weekly visits for the next 2 weeks and then re-evaluate due to still unable to wean O2 2) patient is on 3L O2 and at rest stats are 91%. with activity on 3L patients stats fall to the mid 80's. Lungs are clear, still has a very infrequent dry cough, but O2 still not good. Patient is scheduled to see pulm on 10/16/24. nurse is wondering if patient should increase O2 to 4L with activity, or should he have a round of steroids, or if anything should be done at this time. Patient is anxious to get off of oxygen due to he is a very active person. please review and advise, Jamie needs called back with information. Brigitte Segal APRN.GANG LEADER 10/03/2024 2:59 PM Signed Yes. Please increase O2 to 4l. Thank you for the recert. Shirley Rivera MA 10/03/2024 3:56 PM Signed Detailed message left on secure line [facility] Shirley Rivera MA October 03, 2024 3:56 PM Allergies As of Date: 10/03/2024 Noted Allergy Reaction LISINOPRIL 12/28/2009 3 - Cough SULFA (SULFONAMIDE ANTIBIOTICS) 03/09/2006 4 - Hives Date Reviewed: 09/19/2024 Reviewed by: Shirley Rivera MA - Fully Assessed Reason for Visit: Oxygen [3494] FYI-No Action Needed [265] Cmt: Prescriptions as of 10/03/2024 - Mirtazapine (REMERON) 7.5 mg tablet Take 1 tablet by mouth at bedtime as needed. For sleep - tamsulosin (FLOMAX) 0.4 mg Take 2 capsules by mouth once daily. - amLODIPine (NORVASC) 10 mg tablet Take 1 tablet by mouth once daily. - clopidogrel (PLAVIX) 75 mg tablet Take 1 tablet by mouth once daily. - atorvastatin (LIPITOR) 10 mg tablet Take 1 tablet by mouth once daily. - citalopram (CELEXA) 20 mg tablet Take 1 tablet by mouth once daily. - finasteride (PROSCAR) 5 mg tablet Take 1 tablet by mouth once daily. - hydroCHLOROthiazide 25 mg tablet Take 0.5 tablets by mouth once daily. - metoprolol succinate ER (TOPROL XL) 25 mg 24 hr tablet Take 1 tablet by mouth once daily. - pantoprazole DR (PROTONIX) 40 mg tablet Take 1 tablet by mouth once daily. - Lactobacillus acidophilus (PROBIOTIC ACIDOPHILUS ORAL) Take by mouth. - nitroglycerin sublingual (NITROQUICK) 0.4 mg SL tablet Dissolve 1 tablet under the tongue every 5 minutes as needed for Chest Pain. - MULTIVITAMIN (MULTIPLE VITAMINS ORAL) Take by mouth once daily. - COMPLEX C SR 500 MG-25 MG-25 MG TAB 2 tabs daily Meds Comments as of 04/18/2021: Taking [place]. Problem List As Of Date 10/03/2024 Noted Resolved BENIGN HYPERTENSION [I10] 01/08/2006 Anxiety state [F41.1] 01/05/2009 GERD (gastroesophageal reflux disease) [K21.9] 01/10/2011 BPH (benign prostatic hyperplasia) [N40.0] 03/17/2013 PAD (peripheral artery disease) ([facility]) [I73.9] 02/28/2014 Hyperlipidemia LDL goal <100 [E78.5] 03/28/2016 Hyperbilirubinemia [E80.6] 05/10/2016 Parkinson's disease (HCC) [G20.A1] 07/11/2017 Angina pectoris (HCC) [I20.9] 08/25/2019 Restless legs syndrome [G25.81] 01/27/2020 Iron deficiency anemia due to chronic blood los*01/27/2020 Coronary artery disease involving round [place] rabago*12/22/2020 S/P primary angioplasty with coronary stent [Z9*12/22/2020 Fall from standing [W19.XXXA] 09/20/2021 Encounter for support and coordination of trans*08/11/2023 Acute respiratory failure with hypoxia (HCC) [J*09/25/2023 Encounter Status:Closed by SHIRLEY RIVERA on 10/03/24 [facility] CNOVon 09-19-2024 CNOV Office Visit (FAMPWS ) CLARK LYLES ([id number]) 1935 M Date Time Provider Department 09/19/24 2:40 PM [facility] During your visit today, we recorded the following information about you: Temperature Pulse Blood pressure Weight 98.7 degrees 80/minute 128/62 72.6 kg Brigitte Segal APRN.GANG LEADER 09/19/2024 3:25 PM Signed This is a 88 year old male who presents today with: Patient presents with: Hospital F/U HISTORY OF PRESENT ILLNESS: Clark Lyles is a 88 year old male. Patient presents with: Hospital F/U Went to the hospital with hypoxia and encephalopathy. Treated while hospital with antibiotics. Also home with oxygen continuous., Eating ok.Taking Boost. No fever or chills Drinking not as good Bowels and bladder moving ok. Sleep is not Feels tired. Rib pain- from falls PAST MEDICAL HISTORY: PAST MEDICAL HISTORY Diagnosis Date Acute gastritis [...] lipoma performed by Dr. Robe Mackenzie at [facility] REVSC OPN/PRQ FEM/POP W/STNT/ANGIOP VSL 03-18-14 RPR 1ST INGUN HRNA AGE 5 YRS/> REDUCIBLE Hernia repair, inguinal ALLERGIES Lisinopril and Sulfa (Sulfonamide Antibiotics) MEDICATIONS Current Outpatient Medications Medication Sig amLODIPine (NORVASC) 10 mg tablet Take 1 tablet by mouth once daily. clopidogrel (PLAVIX) 75 mg tablet Take 1 tablet by mouth once daily. atorvastatin (LIPITOR) 10 mg tablet Take 1 tablet by mouth once daily. citalopram (CELEXA) 20 mg tablet Take 1 tablet by mouth once daily. finasteride (PROSCAR) 5 mg tablet Take 1 tablet by mouth once daily. hydroCHLOROthiazide 25 mg tablet Take 0.5 tablets by mouth once daily. metoprolol succinate ER (TOPROL XL) 25 mg 24 hr tablet Take 1 tablet by mouth once daily. pantoprazole DR (PROTONIX) 40 mg tablet Take 1 tablet by mouth once daily. tamsulosin (FLOMAX) 0.4 mg Take 2 capsules by mouth once daily. Lactobacillus acidophilus (PROBIOTIC ACIDOPHILUS ORAL) Take by mouth. nitroglycerin sublingual (NITROQUICK) 0.4 mg SL tablet Dissolve 1 tablet under the tongue every 5 minutes as needed for Chest Pain. MULTIVITAMIN (MULTIPLE VITAMINS ORAL) Take by mouth once daily. COMPLEX C SR 500 MG-25 MG-25 MG TAB 2 tabs daily No current facility-administered medications for this visit. FAMILY HISTORY Problem Relation Age of Onset Hypertension Mother Stroke Mother GI Father Stroke Father Social History Tobacco Use Smoking status: Former Smokeless tobacco: Never Tobacco comments: quit 1999 Vaping Use Vaping status: Never Used Substance Use Topics Alcohol use: Yes Comment: seldom Drug use: No EXAM: BP 128/62 Pulse 80 Temp 37.1 ?C (98.7 ?F) (Left Tympanic) Wt 72.6 kg (160 lb) SpO2 90% BMI 22.96 kg/m? PHYSICAL EXAM: Physical Exam Vitals reviewed. Constitutional: Appearance: Normal appearance. HENT: Head: Normocephalic. Cardiovascular: Rate and Rhythm: Normal rate and regular rhythm. Pulses: Normal pulses. Heart sounds: Normal heart sounds. Pulmonary: Effort: Pulmonary effort is normal. Breath sounds: Normal breath sounds. Abdominal: General: Bowel sounds are normal. Palpations: Abdomen is soft. Tenderness: There is no abdominal tenderness. There is no guarding or rebound. Musculoskeletal: General: Normal range of motion. Comments: Generalized weakness, presents in a wheelchair. Moves all ext. Rib pain from falls Skin: General: Skin is warm and dry. Neurological: Mental Status: He is alert and oriented to person, place, and time. LABS: ASSESSMENT/PLAN: 1. Chronic insomnia - ICD9: 780.52, ICD10: F51.04 (primary diagnosis) Will add for sleep - MIRTAZAPINE 7.5 MG TABLET 2. Benign prostatic hyperplasia with nocturia - ICD9: 600.01, 788.43, ICD10: N40.1, R35.1 Stable on [place] - TAMSULOSIN 0.4 MG CAPSULE 3. Screening for depression - ICD9: V79.0, ICD10: Z13.31 Stable - DEPRESSION SCREENING 4. Hyperlipidemia LDL goal <100 - ICD9: 272.4, ICD10: E78.5 - Controlled - Counseled on healthy diet and regular exercise 5. [place] (more content not included)... Normal [facility] Mikey 09-19-2024 JANETN Telephone (FAMPWS) CLARK LYLES Mega ([id number]) 1935 M Date Time Provider Department 09/19/24 BRIGITTE SEGAL During your visit today, we recorded the following information about you: Whit Sheridan RN 09/19/2024 2:23 PM Signed Rohan calling with [facility] Physical Therapy with plan of care for patient. Pt will be seen 1x per week for 4 weeks for functional mobility training. No call back needed if provider agreeable. ZACKARY Vines Jacqueline A, SPRINKLING TRUCK DRIVER.[facility] 09/19/2024 3:33 PM Signed Sounds good. Agree. Allergies As of Date: 09/19/2024 Noted Allergy Reaction LISINOPRIL 12/28/2009 3 - Cough SULFA (SULFONAMIDE ANTIBIOTICS) 03/09/2006 4 - Hives Date Reviewed: 09/19/2024 Reviewed by: Shirley Rivera MA - Fully Assessed Reason for Visit: Home Health PT Plan of Care [Other] Prescriptions as of 09/19/2024 - Mirtazapine (REMERON) 7.5 mg tablet Take 1 tablet by mouth at bedtime as needed. For sleep - tamsulosin (FLOMAX) 0.4 mg Take 2 capsules by mouth once daily. - amLODIPine (NORVASC) 10 mg tablet Take 1 tablet by mouth once daily. - clopidogrel (PLAVIX) 75 mg tablet Take 1 tablet by mouth once daily. - atorvastatin (LIPITOR) 10 mg tablet Take 1 tablet by mouth once daily. - citalopram (CELEXA) 20 mg tablet Take 1 tablet by mouth once daily. - finasteride (PROSCAR) 5 mg tablet Take 1 tablet by mouth once daily. - hydroCHLOROthiazide 25 mg tablet Take 0.5 tablets by mouth once daily. - metoprolol succinate ER (TOPROL XL) 25 mg 24 hr tablet Take 1 tablet by mouth once daily. - pantoprazole DR (PROTONIX) 40 mg tablet Take 1 tablet by mouth once daily. - Lactobacillus acidophilus (PROBIOTIC ACIDOPHILUS ORAL) Take by mouth. - nitroglycerin sublingual (NITROQUICK) 0.4 mg SL tablet Dissolve 1 tablet under the tongue every 5 minutes as needed for Chest Pain. - MULTIVITAMIN (MULTIPLE VITAMINS ORAL) Take by mouth once daily. - COMPLEX C SR 500 MG-25 MG-25 MG TAB 2 tabs daily Meds Comments as of 04/18/2021: Taking [place]. Problem List As Of Date 09/19/2024 Noted Resolved BENIGN HYPERTENSION [I10] 01/08/2006 Anxiety state [F41.1] 01/05/2009 GERD (gastroesophageal reflux disease) [K21.9] 01/10/2011 BPH (benign prostatic hyperplasia) [N40.0] 03/17/2013 PAD (peripheral artery disease) (HCC) [I73.9] 02/28/2014 Hyperlipidemia LDL goal <100 [E78.5] 03/28/2016 Hyperbilirubinemia [E80.6] 05/10/2016 Parkinson's disease (HCC) [G20.A1] 07/11/2017 Angina pectoris (HCC) [I20.9] 08/25/2019 Restless legs syndrome [G25.81] 01/27/2020 Iron deficiency anemia due to chronic blood los*01/27/2020 Coronary artery disease involving [place] rabago*12/22/2020 S/P primary angioplasty with coronary stent [Z9*12/22/2020 Fall from standing [W19.XXXA] 09/20/2021 Encounter for support and coordination of trans*08/11/2023 Acute respiratory failure with hypoxia (HCC) [J*09/25/2023 Encounter Status:Closed by BRIGITTE SEGAL on 09/19/24 [facility] Mikey 09-17-2024 CNPN Telephone (FAMPWS) CLARK LYLES ([id number]) 1935 M Date Time Provider Department 09/17/24 BRIGITTE SEGAL During your visit today, we recorded the following information about you: Tracy Cedillo RN 09/17/2024 12:57 PM Signed Hellen calling from [facility] to report plan of care for patient and residential will visit patient 1 time a week for 1 week and 2 times a week for 2 weeks. [facility] will work with patient on wound care (patient has skin tear to right elbow) and management of O2 levels. Hellen had no orders for wound care. Hellen cleaned wound and put on Vaseline gauze and band aid. Hellen also notes that patient is on Oxygen and thought that he was only going to be on oxygen for a week. 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 Hellen did not know if provider wanted to address Oxygen use. Patient is scheduled to see PCP 09/19/2024. No call back needed unless there are questions. ZACKARY Tristan Jacqueline A, SHUKRI.GANG LEADER 09/18/2024 8:09 AM Signed Patient will need to stay on oxygen until he follows up with pulmonary. I have not seen him since February 2024 therefore I am not really able to shed any light on his oxygen use. Not common to use oxygen for only a week. Tracy Cedillo RN 09/18/2024 9:53 AM Signed Haley from [facility] calls and reports that granddaughter had checked on patient this morning. Patient's O2 level was in 80's on 2 Liters of oxygen. Home Health Nursing was called and O2 level was bumped up to 3 L of O2. Patient currently is 94% on 3 liters of Oxygen. Haley will contact pulmonary regards this, but is asking provider if it is ok for patient to stay on 3 Liters of oxygen? Patient has appointment scheduled with provider tomorrow 09/19/2024. Please Contact Haley back [phone]. ZACKARY Tristan Jacqueline A, SPRINKLING TRUCK DRIVER.GANG LEADER 09/18/2024 10:41 AM Signed Absolutely keep at 3L. Any report on lung sounds? Shirley Rivera MA 09/18/2024 10:48 AM Signed HHN was not at home, just granddaughter. She did report no cough. Pt has appointment with PCP tomorrow. Allergies As of Date: 09/17/2024 Noted Allergy Reaction LISINOPRIL 12/28/2009 3 - Cough SULFA (SULFONAMIDE ANTIBIOTICS) 03/09/2006 4 - Hives Date Reviewed: 03/27/2024 Reviewed by: Brigitte Segal APRN.GANG LEADER - Fully Assessed Reason for Visit: [facility] Plan of Care [Other] Prescriptions as of 09/22/2024 - Mirtazapine (REMERON) 7.5 mg tablet Take 1 tablet by mouth at bedtime as needed. For sleep - tamsulosin (FLOMAX) 0.4 mg Take 2 capsules by mouth once daily. - amLODIPine (NORVASC) 10 mg tablet Take 1 tablet by mouth once daily. - clopidogrel (PLAVIX) 75 mg tablet Take 1 tablet by mouth once daily. - atorvastatin (LIPITOR) 10 mg tablet Take 1 tablet by mouth once daily. - citalopram (CELEXA) 20 mg tablet Take 1 tablet by mouth once daily. - finasteride (PROSCAR) 5 mg tablet Take 1 tablet by mouth once daily. - hydroCHLOROthiazide 25 mg tablet Take 0.5 tablets by mouth once daily. - metoprolol succinate ER (TOPROL XL) 25 mg 24 hr tablet Take 1 tablet by mouth once daily. - pantoprazole DR (PROTONIX) 40 mg tablet Take 1 tablet by mouth once daily. - Lactobacillus acidophilus (PROBIOTIC ACIDOPHILUS ORAL) Take by mouth. - nitroglycerin sublingual (NITROQUICK) 0.4 mg SL tablet Dissolve 1 tablet under the tongue every 5 minutes as needed for Chest Pain. - MULTIVITAMIN (MULTIPLE VITAMINS ORAL) Take by mouth once daily. - COMPLEX C SR 500 MG-25 MG-25 MG TAB 2 tabs daily Meds Comments as of 04/18/2021: Taking [place]. Problem List As Of Date 09/17/2024 Noted Resolved BENIGN HYPERTENSION [I10] 01/08/2006 Anxiety state [F41.1] 01/05/2009 GERD (gastroesophageal reflux disease) [K21.9] 01/10/2011 BPH (benign prostatic hyperplasia) [N40.0] 03/17/2013 PAD (peripheral artery disease) (HCC) [I73.9] 02/28/2014 Hyperlipidemia LDL goal <100 [E78.5] 03/28/2016 Hyperbilirubinemia [E80.6] 05/10/2016 Parkinson's disease (HCC) [G20.A1] 07/11/2017 Angina pectoris (HCC) [I20.9] 08/25/2019 Restless legs syndrome [G25.81] 01/27/2020 Iron deficiency anemia due to chronic blood los*01/27/2020 Coronary artery disease involving [place] rabago*12/22/2020 S/P primary angioplasty with coronary stent [Z9*12/22/2020 Fall from standing [W19.XXXA] 09/20/2021 Encounter for support and coordination of trans*08/11/2023 Acute respiratory failure with hypoxia (HCC) [J*09/25/2023 Encounter Status:Closed by TRACY CEDILLO on 09/22/24 [facility] CLARK [facility] ([id number]) 1935 M Date Time Provider Department 09/15/24 [facility] During your visit today, we recorded the following information about you: Tracy Cedillo RN 09/15/2024 3:32 PM Signed Rochelle from [facility] HH calls and states that patient is being discharged from [facility] PCU on 09/05/2024 with the diagnosis of hypoxia and acute respiratory failure. Rochelle asking if provider willing to follow patient with orders for residential, physical therapy, occupational therapy and social work. If agreeable please give Rochelle a call back . Thank you, ZACKARY Tristan Jacqueline A, APRN.[facility] 09/15/2024 4:41 PM Signed Yes. Of course Brigitte Segal APRN.GANG LEADER 09/15/2024 5:31 PM Signed Patient is an 88-year-old man who was admitted with episodes of confusion per the family. He had dizziness. acute CVA was ruled out but patient was found hypoxic with a pulse in the 60s. Diagnosis: Acute metabolic encephalopathy resolved Secondary to severe hypoxia. 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 I feel it would be at a low intensity as risk with sedation while on Airvo. No further testing as I do not feel that he had headaches Acute hypoxic respiratory failure started on bronchodilator and systemic steroid as well as IV antibiotics. Placed on oxygen via Airvo titrated to keep saturation greater than 90 D-dimer 1.63. CTA shows infiltrates more prominent on the right. No pulmonary emboli. Was on IV ceftriaxone, azithromycin and vancomycin at the beginning and ceftriaxone was changed to Zosyn. Urinary agents negative. Sputum culture showed normal argenis. Completed 8 days of antibiotics no further antibiotic needed Oxygenation got better but on 2 to 3 L with walking Follow-up in pulmonary clinic Elevated troponin due to demand ischemia. No additional workup at this time. Previous history of PCI patient is on recommended medications including dual antiplatelet therapy, statin, beta-becka. Discharge medication reconciliation. Follow-up with PCP in 1 to 2 weeks. WBC 14.9, hemoglobin 14.3, hematocrit 43.5, platelet count 152 Sodium 139, potassium 3.4, BUN 37, creatinine 0.84, glucose 156 Amlodipine was changed from 5 mg daily to 10 mg daily Shirley Rivera MA 09/16/2024 9:12 AM Signed Detailed message left for Rochelle at [facility] with verbal agreement of plan. Shirley Rivera MA September 16, 2024 9:12 AM Allergies As of Date: 09/15/2024 Noted Allergy Reaction LISINOPRIL 12/28/2009 3 - Cough SULFA (SULFONAMIDE ANTIBIOTICS) 03/09/2006 4 - Hives Date Reviewed: 03/27/2024 Reviewed by: Brigitte Segal APRN.GANG LEADER - Fully Assessed Reason for Visit: Home Health Orders [Other] Visit Diagnosis:Essential hypertension, benign [I10] Order(s):amLODIPine (NORVASC) 10 mg tabletTake 1 tablet by mouth once daily.Disp: 90 tabletRfl: 3 Prescriptions as of 09/16/2024 - amLODIPine (NORVASC) 10 mg tablet Take 1 tablet by mouth once daily. - clopidogrel (PLAVIX) 75 mg tablet Take 1 tablet by mouth once daily. - atorvastatin (LIPITOR) 10 mg tablet Take 1 tablet by mouth once daily. - citalopram (CELEXA) 20 mg tablet Take 1 tablet by mouth once daily. - finasteride (PROSCAR) 5 mg tablet Take 1 tablet by mouth once daily. - hydroCHLOROthiazide 25 mg tablet Take 0.5 tablets by mouth once daily. - metoprolol succinate ER (TOPROL XL) 25 mg 24 hr tablet Take 1 tablet by mouth once daily. - pantoprazole DR (PROTONIX) 40 mg tablet Take 1 tablet by mouth once daily. - tamsulosin (FLOMAX) 0.4 mg Take 2 capsules by mouth once daily. - Lactobacillus acidophilus (PROBIOTIC ACIDOPHILUS ORAL) Take by mouth. - nitroglycerin sublingual (NITROQUICK) 0.4 mg SL tablet Dissolve 1 tablet under the tongue every 5 minutes as needed for Chest Pain. - MULTIVITAMIN (MULTIPLE VITAMINS ORAL) Take by mouth once daily. - COMPLEX C SR 500 MG-25 MG-25 MG TAB 2 tabs daily Meds Comments as of 04/18/2021: Taking [place]. Problem List As Of Date 09/15/2024 Noted Resolved BENIGN HYPERTENSION [I10] 01/08/2006 Anxiety state [F41.1] 01/05/2009 GERD (gastroesophageal reflux disease) [K21.9] 01/10/2011 BPH (benign prostatic hyperplasia) [N40.0] 03/17/2013 PAD (peripheral artery disease) ([facility]) [I73.9] 02/28/2014 Hyperlipidemia LDL goal <100 [E78.5] 03/28/2016 Hyperbilirubinemia [E80.6] 05/10/2016 Parkinson's disease (HCC) [G20.A1] 07/11/2017 Angina pectoris (HCC) [I20.9] 08/25/2019 Restless legs syndrome [G25.81] 01/27/2020 Iron deficiency anemia due to chronic blood los*01/27/2020 Coronary artery disease involving [place] rabago*12/22/2020 S/P primary angioplasty with coronary stent [Z9* (more content not included)... Normal [facility] Discharge Instructionon 08-30 Discharge Instruction [facility] Medical Records Department [address] [place] [address] Instructions for Home/Discharge Instructions 09/15/24905 MR#: [id number] Acct: [id number] Name: CLARK LYLES Rep #: [id number] : 1935 88 From: John Soliz MD PCP: Brigitte Segal, COMPENSATOR Status:ADM IN Discharge Instructions Diet Discharge Diet: 2000 mg Sodium Diet DC O2, CPAP, BIPAP needs RN Home O2 Qualification: Home O2 Qualification: Is the patient on home oxygen No 09/15/24 11:15 Home O2 Qualification: AT REST 1- Pulse Ox at rest 93 09/15/24 11:15 2- Pulse Ox at rest 92 09/14/24 12:19 2- Oxygen Flow Rate at rest 3 09/14/24 12:19 Home O2 Qualification: WITH AMBULATION 1- Pulse Ox with ambulation 86 09/15/24 11:15 1- Oxygen Flow Rate with 1 09/15/24 11:15 ambulation 2- Pulse Ox with ambulation 89 09/15/24 11:15 2- Oxygen Flow Rate with 2 09/15/24 11:15 ambulation Home O2 Discharge instructions: Yes Type of respiratory needs?: Oxygen Oxygen frequency: With Ambulation Oxygen liters per minute during Ambulation: 2 to 3 L/min Dressing / Incision Discharge Activity: Return to Normal Activity Weight Bearing Status: Weight bearing as tolerated Dressing / Incision Call your doctor if you observe: Fever of 101 or Higher, Coldness, Increased Pain, Numbness or Tingling, Change in Color, Inability to urinate, Inability to have a bowel movement, Shortness of breath, Dizziness, Fainting spells, Swelling in the ankles, Chest pain, Prolonged hiccupping, Increased palpitations (irregular heartbeat) and Calf discomfort Follow Up Care When: IN 2 WEEKS Test Results: Test results from this visit will be discussed in further detail at your follow-up appointment, if applicable. Discharge Plan Admission Admit Date/Time: 09/07/24 12:42 Primary Reason for Your Visit: Pneumonia Attending Provider: John Soliz Primary Care Provider: Brigitte Segal Consulting Providers: Jerrell Faith; Lester Perdomo Instructions Additional Instructions / Restrictions: Continue incentive spirometry and PEP for 1 week Discharge Orders/Prescriptions Prescriptions: Continued tamsulosin 0.4 mg capsule 0.4 mg PO DAILY citalopram 20 MG tablet 20 mg PO DAILY multivitamin 1 EACH tablet 1 ea PO DAILY ascorbic acid (vitamin C) 1,000 MG tablet 1,000 mg PO DAILY atorvastatin 10 MG tablet 10 mg PO DAILY clopidogrel 75 MG tablet 75 mg PO DAILY finasteride 5 MG tablet 5 mg PO DAILY metoprolol succinate 25 mg tablet extended release 24 hr 25 mg PO DAILY Lactobacillus acidophilus 1 billion cell capsule 1,000 mmu cells PO DAILY Qty: 30 0RF pantoprazole 40 mg tablet,delayed release (DR/EC) 40 mg PO DAILY hydrochlorothiazide 25 mg tablet 12.5 mg PO DAILY Changed amlodipine 5 mg tablet 10 mg PO DAILY 30 Days Qty: 0 0RF Referrals / Follow Up: Brigitte Segal, MARIANA [Primary Care Provider] - Radha Durbin PA [Non-Staff] - Steven Mitchell DO [Med Staff - Active Staff] - Within 1 Month Disposition Disposition (needs filled in before D/C Order can be placed): Home, Self Care 09/15/24 1343 John Soliz MD CC: COMPENSATOR Brigitte Segal; Dr. Jerrell Faith MD; Dr. Lester Perdomo DO Signed Normal [facility] Serum or plasma trough vanco mycin levelOrdered By: Jerrell Monterroso on 09-15-2024 Vancomycin trough [Mass/Vol] 16.5 ug/mL High 5.0-15.0 [facility] Comment on above: VANCOMYCIN STANDARED DRUG THERAPY TROUGH LEVEL: 5.0 - 15.0 mg/L VANCOMYCIN HIGH INTENSITY THERAPY TROUGH LEVEL: 15.0 - 20.0 mg/L High Intensity therapy recommended for serious lifethreatening infections include:- Zeobtoakut-Fvaajxygdhcg-Qgpoxgtqj (Ventilator/Healtcare Associated)-Sepsis PLEASE CONTACT PHARMACY SERVICES (#[id number]) FOR INTERPRETATIONOF RESULTS. Vancomycin, Trough Levelon 0 09-15-2024 VANCO, TROUGH 16.5 ug/mL High 5.0-15.0 [facility] Comment on above: Order Comment: Comme nts: Trough to be drawn 30 mins prior to scheduled [id number] Result Comment: VANC OMYCIN STANDARED DRUG THERAPY TROUGH LEVEL: 5.0 - 15.0 mg/L VANCOMYCIN HIGH INTENSITY THERAPY TROUGH LEVEL: 15.0 - 20.0 mg/L High Intensity therapy recommended for serious life threatening infections include: - Meningitis -Endocarditis -Pneumonia (Ventilator/Healtcare Associated) -Sepsis PLEASE CONTACT PHARMACY SERVICES (#[id number]) FOR INTERPRETATION OF RESULTS. Performed By: #### L 100.0100, L500.2500 #### [facility] [address] [place], [address] Absolute lymphocyte countOrd ered By: Lester Perdomo on 09-14-2024 Lymphocytes Auto (Unsp spec) [#/Vol] 1.09 10*3/uL 0.83-4.51 [facility] Absolute neutrophil countOrd ered By: Lester Perdomo on 09-14-2024 Neutrophils (Bld) [#/Vol] 12.0 10*3/uL High 2.0-7.7 [facility] Automated lymphocyte count a s percentage of total leukocytesOrdered By: Lester Perdomo on 09-14-2024 Lymphocytes/100 WBC Auto (Unsp spec) 7.3 % Low 19-41 [facility] Basic Metabolic Profile (BMP )on 09-14-2024 BUN/CRE 44.2 RATIO High 10-20 [facility] Comment on above: Performed By: #### L 100.0100, L500.2500 #### [facility] [address] [place], [address] CA,Total 8.6 mg/dL Normal 8.5-10.1 [facility] Comment on above: Performed By: #### L 100.0100, L500.2500 #### [facility] [address] [place], [address] Chloride [Moles/Vol] 106 mmol/L Normal 98-107 [facility] Comment on above: Performed By: #### L 100.0100, L500.2500 #### [facility] [address] [place], [address] CO2 [Moles/Vol] 27.0 mmol/L Normal 21.0-32.0 [facility] Comment on above: Performed By: #### L 100.0100, L500.2500 #### [facility] [address] [place], [address] Creatinine [Mass/Vol] 0.84 mg/dL Normal 0.70-1.30 [facility] Comment on above: Result Comment: The validity of the calculated GFR GFRAA in patients over 70 years has not been determined. Clinical correlation is essential. Performed By: #### L 100.0100, L500.2500 #### [facility] [address] [place], [address] ECRCL 63.04 ml/min Normal [facility] Comment on above: Performed By: #### L 100.0100, L500.2500 #### [facility] [address] [place], [address] EST GFR - AA 112 mL/min Normal >60 [facility] Comment on above: Result Comment: Afri can Argentine GFR Calc Performed By: #### L 100.0100, L500.2500 #### [facility] [address] [place], [address] GAP 6 Normal 5-15 [facility] Comment on above: Performed By: #### L 100.0100, L500.2500 #### [facility] [address] [place], [address] GFR/1.73 sq M.predicted among non-blacks MDRD (S/P/Bld) [Vol rate/Area] 92 mL/min/{1.73_m2} Normal >60 [facility] Comment on above: Result Comment: Non- GFR Calc Performed By: #### L 100.0100, L500.2500 #### [facility] [address] [place], [address] Glucose [Mass/Vol] 156 mg/dL High 74-106 [facility] Comment on above: Result Comment: Fast ing Glucose result greater than or equal to 126 mg/dL suggests DIABETES MELLITUS per A.D.A. criteria. Performed By: #### L 100.0100, L500.2500 #### [facility] [address] [place], [address] Potassium [Moles/Vol] 3.4 mmol/L Low 3.5-5.1 [facility] Comment on above: Performed By: #### L 100.0100, L500.2500 #### [facility] [address] [place], [address] Sodium [Moles/Vol] 139 mmol/L Normal 136-145 [facility] Comment on above: Performed By: #### L 100.0100, L500.2500 #### [facility] [address] [place], [address] Urea nitrogen [Mass/Vol] 37 mg/dL High 7-18 [facility] Comment on above: Performed By: #### L 100.0100, L500.2500 #### [facility] [address] [place], [address] Basophil percentageOrdered B y: Lester Perdomo on 09-14-2024 Basophils/100 WBC (Bld) 0.1 % 0-1 [facility] Blood urea nitrogen (BUN)/cr eatinine ratioOrdered By: Lester Perdomo on 09-14-2024 Urea nitrogen/Creatinine [Mass ratio] 44.2 mg/mg High 10-20 [facility] CBC W/Diff, Automatedon 08-30 REACTIVE LYMPH 1+ Normal [facility] Comment on above: Performed By: #### L 100.0100, L500.2500 #### [facility] [address] [place], [address] Carbon dioxide measurementOr dered By: Lester Perdomo on 09-14-2024 CO2 [Moles/Vol] 27.0 mmol/L 21.0-32.0 [facility] Chloride measurementOrdered By: Lester Perdomo on 09-14-2024 Chloride [Moles/Vol] 106 mmol/L 98-107 [facility] Eosinophil percentageOrdered By: Lester Perdomo on 09-14-2024 Eosinophils/100 WBC (Bld) 0.3 % 0-5 [facility] Erythrocyte distribution wid th ratioOrdered By: Lester Perdomo on 09-14-2024 Erythrocyte distribution width (RBC) [Ratio] 16.1 % High 11.6-14.6 [facility] Erythrocyte distribution wid th standard deviationOrdered By: Lester Perdomo on 09-14-2024 Erythrocyte distribution width (RBC) [Ratio] 56.8 fl High 35.1-43.9 [facility] Glomerular filtration rate ( GFR) estimationOrdered By: Lester Perdomo on 09-14-2024 GFR/1.73 sq M.predicted among non-blacks MDRD (S/P/Bld) [Vol rate/Area] 92 mL/min/{1.73_m2} >60 [facility] Comment on above: Non- GFR Calc Glucose measurementOrdered B y: Lester Perdomo on 09-14-2024 Glucose [Mass/Vol] 156 mg/dL High 74-106 [facility] Comment on above: Fasting Glucose resu lt greater than or equal to 126 mg/dL suggests DIABETES MELLITUS per A.D.A. criteria. Hematocrit Auto (Bld) [Volum e fraction]Ordered By: Lester Perdomo on 09-14-2024 Hematocrit (Bld) [Volume fraction] 43.5 % 40-54 [facility] Hemoglobin measurementOrdere d By: Lester Perdomo on 09-14-2024 Hemoglobin (Bld) [Mass/Vol] 14.3 g/dL 13.0-16.5 [facility] Immature granulocytes/100 WB C Auto (Bld)Ordered By: Lester Perdomo on 09-14-2024 Immature granulocytes/100 WBC (Bld) 4.800 % High 0.0-0.9 [facility] Comment on above: IG% - Immature Granu locytes (promyelocytes, myelocytes and metamyelocytes) > 1% indicates that a LEFT SHIFT is Present. MCV (mean corpuscular volume ) determinationOrdered By: Lester Perdomo on 09-14-2024 MCV (RBC) [Entitic vol] 96.2 fL High 80-94 [facility] Mean corpuscular hemoglobin (MCH) determinationOrdered By: Lester Perdomo on 09-14-2024 MCH (RBC) [Entitic mass] 31.6 pg 27.0-32.0 [facility] Mean corpuscular hemoglobin concentration (MCHC) determinationOrdered By: Lester Perdomo on 09-14-2024 MCHC (RBC) [Mass/Vol] 32.9 g/dL 32-36 [facility] Mean platelet volume determi nationOrdered By: Lester Perdomo on 09-14-2024 Platelet mean volume (Bld) [Entitic vol] 11.7 fL 6.2-12.0 [facility] Monocyte percentageOrdered B y: Lester Perdomo on 09-14-2024 Monocytes/100 WBC (Bld) 7.0 % 0-10 [facility] Neutrophil percentageOrdered By: Lester Perdomo on 09-14-2024 Neutrophils/100 WBC (Bld) 80.5 % High 47-70 [facility] Nucleated red blood cell per centageOrdered By: Lester Perdomo on 09-14-2024 Nucleated RBC/100 WBC (Bld) [Ratio] 0 % 0-5 [facility] Platelet countOrdered By: Geovany Perdomo on 09-14-2024 Platelets (Bld) [#/Vol] 152 10*3/uL 150-450 [facility] Potassium measurementOrdered By: Lester Perdomo on 09-14-2024 Potassium [Moles/Vol] 3.4 mmol/L Low 3.5-5.1 [facility] RBC Auto (Bld) [#/Vol]Ordere d By: Lester Perdomo on 09-14-2024 RBC (Bld) [#/Vol] 4.52 10*6/uL Low 4.6-6.2 [facility] Serum anion gap measurementO rdered By: Lester Perdomo on 09-14-2024 Anion gap [Moles/Vol] 6 mmol/L 5-15 [facility] Serum or plasma calcium nichole urement (mass/volume)Ordered By: Lester Perdomo on 09-14-2024 Calcium [Mass/Vol] 8.6 mg/dL 8.5-10.1 [facility] Serum or plasma creatinine m easurement (mass/volume)Ordered By: Lester Perdomo on 09-14-2024 Creatinine [Mass/Vol] 0.84 mg/dL 0.70-1.30 [facility] Comment on above: The validity of the calculated GFR & GFRAA in patients over 70 years has not been determined. Clinical correlation is essential. Serum or plasma urea nitroge n measurement (mass/volume)Ordered By: Lester Perdomo on 09-14-2024 Urea nitrogen [Mass/Vol] 37 mg/dL High 7-18 [facility] Sodium levelOrdered By: Lester Perdomo on 09-14-2024 Sodium [Moles/Vol] 139 mmol/L 136-145 [facility] White blood cell (WBC) count Ordered By: Lester Perdomo on 09-14-2024 WBC (Bld) [#/Vol] 14.9 10*3/uL High 4.4-11.0 [facility] Basic Metabolic Profile (BMP )on 09-13-2024 BUN/CRE 30.9 RATIO High 10-20 [facility] Comment on above: Performed By: #### L 100.0100, L500.2500 #### [facility] [address] [place], [address] CA,Total 8.6 mg/dL Normal 8.5-10.1 [facility] Comment on above: Performed By: #### L 100.0100, L500.2500 #### [facility] [address] [place], [address] Chloride [Moles/Vol] 103 mmol/L Normal 98-107 [facility] Comment on above: Performed By: #### L 100.0100, L500.2500 #### [facility] [address] [place], [address] CO2 [Moles/Vol] 33.0 mmol/L High 21.0-32.0 [facility] Comment on above: Performed By: #### L 100.0100, L500.2500 #### [facility] [address] [place], [address] Creatinine [Mass/Vol] 1.10 mg/dL Normal 0.70-1.30 [facility] Comment on above: Result Comment: The validity of the calculated GFR GFRAA in patients over 70 years has not been determined. Clinical correlation is essential. Performed By: #### L 100.0100, L500.2500 #### [facility] [address] [place], [address] ECRCL 49.57 ml/min Normal [facility] Comment on above: Performed By: #### L 100.0100, L500.2500 #### [facility] [address] [place], [address] EST GFR - AA 82 mL/min Normal >60 [facility] Comment on above: Result Comment: Afri can Argentine GFR Calc Performed By: #### L 100.0100, L500.2500 #### [facility] [address] [place], [address] GAP 3 Low 5-15 [facility] Comment on above: Performed By: #### L 100.0100, L500.2500 #### [facility] [address] [place], [address] GFR/1.73 sq M.predicted among non-blacks MDRD (S/P/Bld) [Vol rate/Area] 67 mL/min/{1.73_m2} Normal >60 [facility] Comment on above: Result Comment: Non- GFR Calc Performed By: #### L 100.0100, L500.2500 #### [facility] [address] [place], [address] Glucose [Mass/Vol] 168 mg/dL High 74-106 [facility] Comment on above: Result Comment: Fast ing Glucose result greater than or equal to 126 mg/dL suggests DIABETES MELLITUS per A.D.A. criteria. Performed By: #### L 100.0100, L500.2500 #### [facility] [address] [place], [address] Potassium [Moles/Vol] 3.3 mmol/L Low 3.5-5.1 [facility] Comment on above: Performed By: #### L 100.0100, L500.2500 #### [facility] [address] [place], [address] Sodium [Moles/Vol] 139 mmol/L Normal 136-145 [facility] Comment on above: Performed By: #### L 100.0100, L500.2500 #### [facility] [address] [place], [address] Urea nitrogen [Mass/Vol] 34 mg/dL High 7-18 [facility] Comment on above: Performed By: #### L 100.0100, L500.2500 #### [facility] [address] [place], [address] CBC W/Diff, Automatedon 02- Absolute Lymph 0.43 X10 3/uL Low 0.83-4.51 [facility] Comment on above: Performed By: #### L 100.0100, L500.2500 #### [facility] [address] [place], [address] Absolute Neut 12.2 X10 3/uL High 2.0-7.7 [facility] Comment on above: Performed By: #### L 100.0100, L500.2500 #### [facility] [address] [place], [address] Basophils/100 WBC (Bld) 0.7 % Normal 0-1 [facility] Comment on above: Performed By: #### L 100.0100, L500.2500 #### [facility] [address] [place], [address] Eosinophils/100 WBC (Bld) 0.0 % Normal 0-5 [facility] Comment on above: Performed By: #### L 100.0100, L500.2500 #### [facility] [address] [place], [address] Erythrocyte distribution width (RBC) [Ratio] 15.8 % High 11.6-14.6 [facility] Comment on above: Performed By: #### L 100.0100, L500.2500 #### [facility] [address] [place], [address] Hematocrit (Bld) [Volume fraction] 45.7 % Normal 40-54 [facility] Comment on above: Performed By: #### L 100.0100, L500.2500 #### [facility] [address] [place], [address] Hemoglobin (Bld) [Mass/Vol] 15.5 g/dL Normal 13.0-16.5 [facility] Comment on above: Performed By: #### L 100.0100, L500.2500 #### [facility] [address] [place], [address] IG% 2.600 High 0.0-0.9 [facility] Comment on above: Result Comment: IG% - Immature Granulocytes (promyelocytes, myelocytes and metamyelocytes) > 1% indicates that a LEFT SHIFT is Present. Performed By: #### L 100.0100, L500.2500 #### [facility] [address] [place], [address] Lymphocytes/100 WBC (Bld) 3.2 % Low 19-41 [facility] Comment on above: Performed By: #### L 100.0100, L500.2500 #### [facility] [address] [place], [address] MCH (RBC) [Entitic mass] 32.0 pg Normal 27.0-32.0 [facility] Comment on above: Performed By: #### L 100.0100, L500.2500 #### [facility] [address] [place], [address] MCHC (RBC) [Mass/Vol] 33.9 g/dL Normal 32-36 [facility] Comment on above: Performed By: #### L 100.0100, L500.2500 #### [facility] [address] [place], [address] MCV (RBC) [Entitic vol] 94.4 fL High 80-94 [facility] Comment on above: Performed By: #### L 100.0100, L500.2500 #### [facility] [address] [place], [address] Monocytes/100 WBC (Bld) 3.8 % Normal 0-10 [facility] Comment on above: Performed By: #### L 100.0100, L500.2500 #### [facility] [address] [place], [address] Neutrophils/100 WBC (Bld) 89.7 % High 47-70 [facility] Comment on above: Performed By: #### L 100.0100, L500.2500 #### [facility] [address] [place], [address] Nucleated RBC (Bld) [#/Vol] 0 10*3/uL Normal 0-5 [facility] Comment on above: Performed By: #### L 100.0100, L500.2500 #### [facility] [address] [place], [address] Platelet mean volume (Bld) [Entitic vol] 11.4 fL Normal 6.2-12.0 [facility] Comment on above: Performed By: #### L 100.0100, L500.2500 #### [facility] [address] [place], [address] Platelets (Bld) [#/Vol] 162 10*3/uL Normal 150-450 [facility] Comment on above: Performed By: #### L 100.0100, L500.2500 #### [facility] [address] [place], [address] RBC (Bld) [#/Vol] 4.84 10*6/uL Normal 4.6-6.2 [facility] Comment on above: Performed By: #### L 100.0100, L500.2500 #### [facility] [address] [place], [address] RDW SD 54.8 fl High 35.1-43.9 [facility] Comment on above: Performed By: #### L 100.0100, L500.2500 #### [facility] [address] [place], [address] WBC (Bld) [#/Vol] 13.5 10*3/uL High 4.4-11.0 [facility] Comment on above: Performed By: #### L 100.0100, L500.2500 #### [facility] [address] [place], [address] Vancomycin, Trough Levelon 0 - VANCO, TROUGH 17.0 ug/mL High 5.0-15.0 [facility] Comment on above: Order Comment: Comme nts: DRAW 30 MIN PRIOR TO DOSE 0330 Result Comment: VANC OMYCIN STANDARED DRUG THERAPY TROUGH LEVEL: 5.0 - 15.0 mg/L VANCOMYCIN HIGH INTENSITY THERAPY TROUGH LEVEL: 15.0 - 20.0 mg/L High Intensity therapy recommended for serious life threatening infections include: - Meningitis -Endocarditis -Pneumonia (Ventilator/Healtcare Associated) -Sepsis PLEASE CONTACT PHARMACY SERVICES (#[id number]) FOR INTERPRETATION OF RESULTS. Performed By: #### L 501.8820 #### [facility] [address] [place], [address] Basic Metabolic Profile (BMP )on 09-12-2024 BUN/CRE 33.2 RATIO High 10-20 [facility] Comment on above: Performed By: #### L 100.0100, L500.2500 #### [facility] [address] [place], [address] CA,Total 8.5 mg/dL Normal 8.5-10.1 [facility] Comment on above: Performed By: #### L 100.0100, L500.2500 #### [facility] [address] [place], [address] Chloride [Moles/Vol] 105 mmol/L Normal 98-107 [facility] Comment on above: Performed By: #### L 100.0100, L500.2500 #### [facility] [address] [place], [address] CO2 [Moles/Vol] 28.0 mmol/L Normal 21.0-32.0 [facility] Comment on above: Performed By: #### L 100.0100, L500.2500 #### [facility] [address] [place], [address] Creatinine [Mass/Vol] 0.96 mg/dL Normal 0.70-1.30 [facility] Comment on above: Result Comment: The validity of the calculated GFR GFRAA in patients over 70 years has not been determined. Clinical correlation is essential. Performed By: #### L 100.0100, L500.2500 #### [facility] [address] [place], [address] ECRCL 56.80 ml/min Normal [facility] Comment on above: Performed By: #### L 100.0100, L500.2500 #### [facility] [address] [place], [address] EST GFR - AA 95 mL/min Normal >60 [facility] Comment on above: Result Comment: Afri can Argentine GFR Calc Performed By: #### L 100.0100, L500.2500 #### [facility] [address] [place], [address] GAP 7 Normal 5-15 [facility] Comment on above: Performed By: #### L 100.0100, L500.2500 #### [facility] [address] [place], [address] GFR/1.73 sq M.predicted among non-blacks MDRD (S/P/Bld) [Vol rate/Area] 78 mL/min/{1.73_m2} Normal >60 [facility] Comment on above: Result Comment: Non- GFR Calc Performed By: #### L 100.0100, L500.2500 #### [facility] [address] [place], [address] Glucose [Mass/Vol] 156 mg/dL High 74-106 [facility] Comment on above: Result Comment: Fast ing Glucose result greater than or equal to 126 mg/dL suggests DIABETES MELLITUS per A.D.A. criteria. Performed By: #### L 100.0100, L500.2500 #### [facility] [address] [place], [address] Potassium [Moles/Vol] 3.4 mmol/L Low 3.5-5.1 [facility] Comment on above: Performed By: #### L 100.0100, L500.2500 #### [facility] [address] [place], [address] Sodium [Moles/Vol] 140 mmol/L Normal 136-145 [facility] Comment on above: Performed By: #### L 100.0100, L500.2500 #### [facility] [address] [place], [address] Urea nitrogen [Mass/Vol] 32 mg/dL High 7-18 [facility] Comment on above: Performed By: #### L 100.0100, L500.2500 #### [facility] [address] [place], [address] CBC W/Diff, Automatedon 02-08 02-2024 Absolute Lymph 0.46 X10 3/uL Low 0.83-4.51 [facility] Comment on above: Performed By: #### L 100.0100, L500.2500 #### [facility] [address] [place], [address] Absolute Neut 11.3 X10 3/uL High 2.0-7.7 [facility] Comment on above: Performed By: #### L 100.0100, L500.2500 #### [facility] [address] [place], [address] Basophils/100 WBC (Bld) 0.2 % Normal 0-1 [facility] Comment on above: Performed By: #### L 100.0100, L500.2500 #### [facility] [address] [place], [address] Eosinophils/100 WBC (Bld) 0.0 % Normal 0-5 [facility] Comment on above: Performed By: #### L 100.0100, L500.2500 #### [facility] [address] [place], [address] Erythrocyte distribution width (RBC) [Ratio] 15.9 % High 11.6-14.6 [facility] Comment on above: Performed By: #### L 100.0100, L500.2500 #### [facility] [address] [place], [address] Hematocrit (Bld) [Volume fraction] 44.7 % Normal 40-54 [facility] Comment on above: Performed By: #### L 100.0100, L500.2500 #### [facility] [address] [place], [address] Hemoglobin (Bld) [Mass/Vol] 14.9 g/dL Normal 13.0-16.5 [facility] Comment on above: Performed By: #### L 100.0100, L500.2500 #### [facility] [address] [place], [address] IG% 1.700 High 0.0-0.9 [facility] Comment on above: Result Comment: IG% - Immature Granulocytes (promyelocytes, myelocytes and metamyelocytes) > 1% indicates that a LEFT SHIFT is Present. Performed By: #### L 100.0100, L500.2500 #### [facility] [address] [place], [address] Lymphocytes/100 WBC (Bld) 3.6 % Low 19-41 [facility] Comment on above: Performed By: #### L 100.0100, L500.2500 #### [facility] [address] [place], [address] MCH (RBC) [Entitic mass] 31.6 pg Normal 27.0-32.0 [facility] Comment on above: Performed By: #### L 100.0100, L500.2500 #### [facility] [address] [place], [address] MCHC (RBC) [Mass/Vol] 33.3 g/dL Normal 32-36 [facility] Comment on above: Performed By: #### L 100.0100, L500.2500 #### [facility] [address] [place], [address] MCV (RBC) [Entitic vol] 94.7 fL High 80-94 [facility] Comment on above: Performed By: #### L 100.0100, L500.2500 #### [facility] [address] [place], [address] Monocytes/100 WBC (Bld) 4.7 % Normal 0-10 [facility] Comment on above: Performed By: #### L 100.0100, L500.2500 #### [facility] [address] [place], [address] Neutrophils/100 WBC (Bld) 89.8 % High 47-70 [facility] Comment on above: Performed By: #### L 100.0100, L500.2500 #### [facility] [address] [place], [address] Nucleated RBC (Bld) [#/Vol] 0 10*3/uL Normal 0-5 [facility] Comment on above: Performed By: #### L 100.0100, L500.2500 #### [facility] [address] [place], [address] Platelet mean volume (Bld) [Entitic vol] 11.5 fL Normal 6.2-12.0 [facility] Comment on above: Performed By: #### L 100.0100, L500.2500 #### [facility] [address] [place], [address] Platelets (Bld) [#/Vol] 165 10*3/uL Normal 150-450 [facility] Comment on above: Performed By: #### L 100.0100, L500.2500 #### [facility] [address] [place], [address] RBC (Bld) [#/Vol] 4.72 10*6/uL Normal 4.6-6.2 [facility] Comment on above: Performed By: #### L 100.0100, L500.2500 #### [facility] [address] [place], [address] RDW SD 55.7 fl High 35.1-43.9 [facility] Comment on above: Performed By: #### L 100.0100, L500.2500 #### [facility] [address] [place], [address] WBC (Bld) [#/Vol] 12.6 10*3/uL High 4.4-11.0 [facility] Comment on above: Performed By: #### L 100.0100, L500.2500 #### [facility] [address] [place], [address] Respiratory Cultureon 2024 RESPC Mixed normal respira tory argenis. No Haemophilus, Streptococcus pneumoniae, beta-hemolytic Streptococcus or Staphylococcus aureus isolated. Normal [facility] Comment on above: Performed By: #### M 100.2400, M100.2000 ####[facility] [address] [place], [address] CBC W/Diff, Automatedon 08-30 Absolute Lymph 0.43 X10 3/uL Low 0.83-4.51 [facility] Comment on above: Performed By: #### L 100.0100 #### [facility] [address] [place], [address] Absolute Neut 11.6 X10 3/uL High 2.0-7.7 [facility] Comment on above: Performed By: #### L 100.0100 #### [facility] [address] [place], [address] Basophils/100 WBC (Bld) 0.1 % Normal 0-1 [facility] Comment on above: Performed By: #### L 100.0100 #### [facility] [address] [place], [address] Eosinophils/100 WBC (Bld) 0.0 % Normal 0-5 [facility] Comment on above: Performed By: #### L 100.0100 #### [facility] [address] [place], [address] Erythrocyte distribution width (RBC) [Ratio] 16.1 % High 11.6-14.6 [facility] Comment on above: Performed By: #### L 100.0100 #### [facility] [address] [place], [address] Hematocrit (Bld) [Volume fraction] 44.9 % Normal 40-54 [facility] Comment on above: Performed By: #### L 100.0100 #### [facility] [address] [place], [address] Hemoglobin (Bld) [Mass/Vol] 14.8 g/dL Normal 13.0-16.5 [facility] Comment on above: Performed By: #### L 100.0100 #### [facility] [address] [place], [address] IG% 1.600 High 0.0-0.9 [facility] Comment on above: Result Comment: IG% - Immature Granulocytes (promyelocytes, myelocytes and metamyelocytes) > 1% indicates that a LEFT SHIFT is Present. Performed By: #### L 100.0100 #### [facility] [address] [place], [address] Lymphocytes/100 WBC (Bld) 3.4 % Low 19-41 [facility] Comment on above: Performed By: #### L 100.0100 #### [facility] [address] [place], [address] MCH (RBC) [Entitic mass] 31.5 pg Normal 27.0-32.0 [facility] Comment on above: Performed By: #### L 100.0100 #### [facility] [address] [place], [address] MCHC (RBC) [Mass/Vol] 33.0 g/dL Normal 32-36 [facility] Comment on above: Performed By: #### L 100.0100 #### [facility] [address] [place], [address] MCV (RBC) [Entitic vol] 95.5 fL High 80-94 [facility] Comment on above: Performed By: #### L 100.0100 #### [facility] [address] [place], [address] Monocytes/100 WBC (Bld) 4.1 % Normal 0-10 [facility] Comment on above: Performed By: #### L 100.0100 #### [facility] [address] [place], [address] Neutrophils/100 WBC (Bld) 90.8 % High 47-70 [facility] Comment on above: Performed By: #### L 100.0100 #### [facility] [address] [place], [address] Nucleated RBC (Bld) [#/Vol] 0 10*3/uL Normal 0-5 [facility] Comment on above: Performed By: #### L 100.0100 #### [facility] [address] [place], [address] Platelet mean volume (Bld) [Entitic vol] 11.3 fL Normal 6.2-12.0 [facility] Comment on above: Performed By: #### L 100.0100 #### [facility] [address] [place], [address] Platelets (Bld) [#/Vol] 156 10*3/uL Normal 150-450 [facility] Comment on above: Performed By: #### L 100.0100 #### [facility] [address] [place], [address] RBC (Bld) [#/Vol] 4.70 10*6/uL Normal 4.6-6.2 [facility] Comment on above: Performed By: #### L 100.0100 #### [facility] [address] [place], [address] RDW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 Comment on above: Performed By: #### L 500.2500, L501.5200, L100.0100, L501.2300 #### [facility] [address] [place], [address] Monocytes/100 WBC (Bld) 2.0 % Normal 0-10 [facility] Comment on above: Performed By: #### L 500.2500, L501.5200, L100.0100, L501.2300 #### [facility] [address] [place], [address] Neutrophils/100 WBC (Bld) 93.0 % High 47-70 [facility] Comment on above: Performed By: #### L 500.2500, L501.5200, L100.0100, L501.2300 #### [facility] [address] [place], [address] Nucleated RBC (Bld) [#/Vol] 0 10*3/uL Normal 0-5 [facility] Comment on above: Performed By: #### L 500.2500, L501.5200, L100.0100, L501.2300 #### [facility] [address] [place], [address] Platelet mean volume (Bld) [Entitic vol] 11.6 fL Normal 6.2-12.0 [facility] Comment on above: Performed By: #### L 500.2500, L501.5200, L100.0100, L501.2300 #### [facility] [address] [place], [address] Platelets (Bld) [#/Vol] 183 10*3/uL Normal 150-450 [facility] Comment on above: Performed By: #### L 500.2500, L501.5200, L100.0100, L501.2300 #### [facility] [address] [place], [address] RBC (Bld) [#/Vol] 4.65 10*6/uL Normal 4.6-6.2 [facility] Comment on above: Performed By: #### L 500.2500, L501.5200, L100.0100, L501.2300 #### [facility] [address] [place], [address] RDW SD 52.6 fl High 35.1-43.9 [facility] Comment on above: Performed By: #### L 500.2500, L501.5200, L100.0100, L501.2300 #### [facility] [address] [place], [address] WBC (Bld) [#/Vol] 7.9 10*3/uL Normal 4.4-11.0 [facility] Comment on above: Performed By: #### L 500.2500, L501.5200, L100.0100, L501.2300 #### [facility] [address] [place], [address] CTA Chest W/WO Contraston CTA Chest W/WO Contrast [facility] Imaging Services [address] [place] [address] CTA Chest W/WO Contrast MR#: [id number] Acct: [id number] Name: CLARK LYLES Rep #: [id number] : 1935 M 88 From: Jose araujo MD PCP: Brigitte Segal, COMPENSATOR Status: ADM IN Study: CTA Chest W/WO Contrast Date of Exam: 09/08/24 Exam# [id number] Ordering Dr: Lester Perdomo DO PROCEDURE: CTA CHEST W/WO CONTRAST REASON FOR EXAM: Hypoxia. TECHNIQUE: CTA imaging of the chest with intravenous contrast. 3D reconstructions. CONTRAST: 100 cc of Isovue 370. COMPARISON: Comparison is made with prior chest radiograph dated September 07, 2024. FINDINGS: Hardware: None. Lymph nodes: Small mediastinal lymph nodes. Heart: Normal heart size. No pericardial effusion. Coronary artery calcification. Thoracic Aorta: Atherosclerotic plaques. No aneurysm or dissection. Pulmonary Vessels: No large central filling defects. Contrast timing was optimized for evaluation of the aorta. Lungs and Airways: Bibasilar pulmonary infiltrates more prominent at the right lung base superimposed on mild degree of emphysema. Hyperinflation. Patchy infiltrate in the posterior segment of the right upper lobe. Pleura: No pleural effusion. No pneumothorax. Upper Abdomen: Small left renal cyst. Bones: Degenerative changes of the thoracic spine. CT/CTA Chest W/WO Contrast IMPRESSION: No evidence of pulmonary embolism. Patchy bibasilar infiltrates worse on the right side and patchy infiltrate in the posterior segment of the right upper lobe. One or more dose reduction techniques were used (e.g., Automated exposure control, adjustment of the mA and/or kV according to patient size, use of iterative reconstruction technique). Reading Location: [place] [address] CC: COMPENSATOR Brigitte Segal; Dr. Lester Perdomo DO Fermentation Engineer: Signed Normal [facility] Echo, Limited Studyon 2024 Echo, Limited Study [facility] [address] [place] [address] Echo, Limited Study 09/08/24 1446 MR#: [id number] Acct: [id number] Name: CLARK LYLES Rep #: [id number] : 1935 88 From: Dejuan Brooks MD Attending Dr: Dr. Lester Perdomo DO Status: ADM IN Ordering Dr: Lester Perdomo DO Date: 09/08/24 Location: [facility] Sex: M C Admitted: 09/07/24 Reason For Study ECHO/Echo, Limited Study Interpretation Summary Normal LV size. Left ventricular systolic function is normal. The left ventricular ejection fraction is 55 %. Pulmonary artery systolic pressure is 86 mmHg. Severe pulmonary hypertension. Moderately severe (3+) tricuspid valve insufficiency. Ordering Physician: Lester Perdomo Referring Physician: BRIGITTE SEGAL Performed By: Cynthia Alonzo RCS 09/09/24833 Date Dejuan Brooks MD CC: COMPENSATOR Brigitte Segal; Dr. Lester Perdomo, Date Dictated: 09/08/24 1446 Date Transcribed: 09/09/24833 Fermentation Engineer: Signed Normal [facility] Magnesiumon 09-08-2024 Magnesium [Mass/Vol] 1.8 mg/dL Normal 1.6-2.6 [facility] Comment on above: Performed By: #### L 500.2500, L501.5200, L100.0100, L501.2300 ####[facility] [address] [facility] [place], [address] Magnesium measurementOrdered By: Jerrell Faith on 09-08-2024 Magnesium [Mass/Vol] 1.8 mg/dL 1.6-2.6 [facility] Phosphoruson 09-08-2024 Phosphate [Mass/Vol] 3.9 mg/dL Normal 2.5-4.9 [facility] Comment on above: Performed By: #### L 500.2500, L501.5200, L100.0100, L501.2300 ####[facility] [address] [facility] [place], [address] 12 Lead EKGon 09-07-2024 12 Lead EKG [facility] [address] [place] [address] 12 Lead EKG 09/07/24 1105 MR#: [id number] Acct: [id number] Name: CLARK LYLES Rep #: [id number] : 1935 88 From: Dejuan Brooks MD Attending Dr: Dr. Lester Perdomo DO Status: ADM IN Ordering Dr: Neo Tejeda DO Date: 09/07/24 Location: [facility] Sex: M C Admitted: 09/07/24 Test Reason : NEURO Blood Pressure : */* mmHG Vent. Rate : 81 BPM Atrial Rate : 81 BPM P-R Int : 152 ms QRS Dur : 102 ms QT Int : 410 ms P-R-T Axes : 62 5 22 degrees QTcB Int : 476 ms Sinus rhythm with Premature atrial complexes with Aberrant conduction Otherwise normal ECG Confirmed by TODD MANUEL, DEJUAN ([id number]), editor magazine FARSHAD PANDYA ([id number]) on 09/08/2024 11:07:09 AM Referred By: Confirmed By: DEJUAN BROOKS MD 09/08/24 110 Date Dejuan Brooks MD CC: MARIANA Segal; Dr. Lester Perdomo DO; Dr. Neo Tejeda DO Signed Normal [facility] Activated partial thrombopla stin time (aPTT) in platelet poor plasma by coagulation aOrdered By: Neo Tejeda on 09-07-2024 aPTT Coag (PPP) [Time] 26.5 s 24.1-36.2 [facility] Assessment of wrist artery p atency prior to arterial punctureOrdered By: Neo Tejeda on 09-07-2024 Arterial patency Wrist artery --pre arterial puncture Positive [facility] BNP (brain natriuretic pepti de measurement)Ordered By: Neo Tejeda on 09-07-2024 Natriuretic peptide B (Bld) [Mass/Vol] 221.1 pg/mL High 0-100 [facility] BNP,B-Type NATRIURETIC PEPTI Giovanni 09-07-2024 Natriuretic peptide B (Bld) [Mass/Vol] 221.1 pg/mL High 0-100 [facility] Comment on above: Performed By: #### L 503.6620 ####[facility] [address], [address] Basic Metabolic Profile (BMP )on 09-07-2024 BUN/CRE 19.2 RATIO Normal 10-20 [facility] Comment on above: Order Comment: 'TROP ' Serial specimen #1, #2 or #3: 1 Performed By: #### L 500.2500, L501.4020, L100.0100, L300.3900, L300.4310 ####[facility] [address] [place], [address] CA,Total 8.7 mg/dL Normal 8.5-10.1 [facility] Comment on above: Order Comment: 'TROP ' Serial specimen #1, #2 or #3: 1 Performed By: #### L 500.2500, L501.4020, L100.0100, L300.3900, L300.4310 ####[facility] [address] [place], [address] Chloride [Moles/Vol] 104 mmol/L Normal 98-107 [facility] Comment on above: Order Comment: 'TROP ' Serial specimen #1, #2 or #3: 1 Performed By: #### L 500.2500, L501.4020, L100.0100, L300.3900, L300.4310 ####[facility] [address] [place], [address] CO2 [Moles/Vol] 18.0 mmol/L Low 21.0-32.0 [facility] Comment on above: Order Comment: 'TROP ' Serial specimen #1, #2 or #3: 1 Performed By: #### L 500.2500, L501.4020, L100.0100, L300.3900, L300.4310 ####[facility] [address] [place], [address] Creatinine [Mass/Vol] 1.04 mg/dL Normal 0.70-1.30 [facility] Comment on above: Order Comment: 'TROP ' Serial specimen #1, #2 or #3: 1 Result Comment: The validity of the calculated GFR GFRAA in patients over 70 years has not been determined. Clinical correlation is essential. Performed By: #### L 500.2500, L501.4020, L100.0100, L300.3900, L300.4310 ####[facility] [address] [place], [address] ECRCL 49.04 ml/min Normal [facility] Comment on above: Order Comment: 'TROP ' Serial specimen #1, #2 or #3: 1 Performed By: #### L 500.2500, L501.4020, L100.0100, L300.3900, L300.4310 ####[facility] [address] [place], [address] EST GFR - AA 87 mL/min Normal >60 [facility] Comment on above: Order Comment: 'TROP ' Serial specimen #1, #2 or #3: 1 Result Comment: Afri can Argentine GFR Calc Performed By: #### L 500.2500, L501.4020, L100.0100, L300.3900, L300.4310 ####[facility] [address] [place], [address] GAP 16 High 5-15 [facility] Comment on above: Order Comment: 'TROP ' Serial specimen #1, #2 or #3: 1 Performed By: #### L 500.2500, L501.4020, L100.0100, L300.3900, L300.4310 ####[facility] [address] [place], [address] GFR/1.73 sq M.predicted among non-blacks MDRD (S/P/Bld) [Vol rate/Area] 72 mL/min/{1.73_m2} Normal >60 [facility] Comment on above: Order Comment: 'TROP ' Serial specimen #1, #2 or #3: 1 Result Comment: Non- GFR Calc Performed By: #### L 500.2500, L501.4020, L100.0100, L300.3900, L300.4310 ####[facility] [address] [place], [address] Glucose [Mass/Vol] 77 mg/dL Normal 74-106 [facility] Comment on above: Order Comment: 'TROP ' Serial specimen #1, #2 or #3: 1 Performed By: #### L 500.2500, L501.4020, L100.0100, L300.3900, L300.4310 ####[facility] [address] [place], [address] Potassium [Moles/Vol] 3.3 mmol/L Low 3.5-5.1 [facility] Comment on above: Order Comment: 'TROP ' Serial specimen #1, #2 or #3: 1 Performed By: #### L 500.2500, L501.4020, L100.0100, L300.3900, L300.4310 ####[facility] [address] [place], [address] Sodium [Moles/Vol] 138 mmol/L Normal 136-145 [facility] Comment on above: Order Comment: 'TROP ' Serial specimen #1, #2 or #3: 1 Performed By: #### L 500.2500, L501.4020, L100.0100, L300.3900, L300.4310 ####[facility] [address] [place], [address] Urea nitrogen [Mass/Vol] 20 mg/dL High 7-18 [facility] Comment on above: Order Comment: 'TROP ' Serial specimen #1, #2 or #3: 1 Performed By: #### L 500.2500, L501.4020, L100.0100, L300.3900, L300.4310 ####[facility] [address] [place], [address] Bilirubin Test strip Ql (U)O rdered By: Neo Tejeda on 09-07-2024 Bilirubin Ql (U) Negative Negative [facility] Blood Gases by CPSon 025 MAGUI TEST Positive Normal [facility] Comment on above: Performed By: #### L 100.0100, L500.2500 #### [facility] [address] [place], [address] Base excess Calc (Bld) [Moles/Vol] -8 mmol/L Low -2 to +2 [facility] Comment on above: Performed By: #### L 100.0100, L500.2500 #### [facility] [address] [place], [address] Blood Gas Type ART Normal [facility] Comment on above: Performed By: #### L 100.0100, L500.2500 #### [facility] [address] [place], [address] CO2 [Moles/Vol] 18 mmol/L Normal [facility] Comment on above: Performed By: #### L 100.0100, L500.2500 #### [facility] [address] [place], [address] Comment AIRVO 60L Normal [facility] Comment on above: Performed By: #### L 100.0100, L500.2500 #### [facility] [address] [place], [address] FI02 50.0 Normal [facility] Comment on above: Performed By: #### L 100.0100, L500.2500 #### [facility] [address] [place], [address] HCO3 (Bld) [Moles/Vol] 17.0 mmol/L Low 22-26 [facility] Comment on above: Performed By: #### L 100.0100, L500.2500 #### [facility] [address] [place], [address] Mode Not entered Normal [facility] Comment on above: Performed By: #### L 100.0100, L500.2500 #### [facility] [address] [place], [address] O2 Delivery Dev HFNC Normal [facility] Comment on above: Performed By: #### L 100.0100, L500.2500 #### [facility] [address] [place], [address] pCO2 28.6 mmHg Low 35-45 [facility] Comment on above: Performed By: #### L 100.0100, L500.2500 #### [facility] [address] [place], [address] pH (Bld) 7.38 [pH] Normal 7.35-7.45 [facility] Comment on above: Performed By: #### L 100.0100, L500.2500 #### [facility] [address] [place], [address] PO2 102 mmHG High 75-100 [facility] Comment on above: Performed By: #### L 100.0100, L500.2500 #### [facility] [address] [place], [address] SITE R Radial Normal [facility] Comment on above: Performed By: #### L 100.0100, L500.2500 #### [facility] [address] [place], [address] SO2 98 Normal 95-99 [facility] Comment on above: Performed By: #### L 100.0100, L500.2500 #### [facility] [address] [place], [address] Blood base excess determinat ionOrdered By: Neo Tejeda on 09-07-2024 Base excess Calc (BldV) [Moles/Vol] -8 mmol/L Low -2-2 [facility] Blood bicarbonate measuremen tOrdered By: Neo Tejeda on 09-07-2024 HCO3 (Bld) [Moles/Vol] 17.0 mmol/L Low 22-26 [facility] CBC W/Diff, Automatedon Absolute Lymph 0.74 X10 3/uL Low 0.83-4.51 [facility] Comment on above: Performed By: #### L 500.2500, L501.4020, L100.0100, L300.3900, L300.4310 ####[facility] [address] [place], [address] Absolute Neut 10.8 X10 3/uL High 2.0-7.7 [facility] Comment on above: Performed By: #### L 500.2500, L501.4020, L100.0100, L300.3900, L300.4310 ####[facility] [address] [place], [address] Basophils/100 WBC (Bld) 0.3 % Normal 0-1 [facility] Comment on above: Performed By: #### L 500.2500, L501.4020, L100.0100, L300.3900, L300.4310 ####[facility] [address] [place], [address] Eosinophils/100 WBC (Bld) 0.1 % Normal 0-5 [facility] Comment on above: Performed By: #### L 500.2500, L501.4020, L100.0100, L300.3900, L300.4310 ####[facility] [address] [place], [address] Erythrocyte distribution width (RBC) [Ratio] 16.4 % High 11.6-14.6 [facility] Comment on above: Performed By: #### L 500.2500, L501.4020, L100.0100, L300.3900, L300.4310 ####[facility] [address] [place], [address] Hematocrit (Bld) [Volume fraction] 46.6 % Normal 40-54 [facility] Comment on above: Performed By: #### L 500.2500, L501.4020, L100.0100, L300.3900, L300.4310 ####[facility] [address] [place], [address] Hemoglobin (Bld) [Mass/Vol] 15.8 g/dL Normal 13.0-16.5 [facility] Comment on above: Performed By: #### L 500.2500, L501.4020, L100.0100, L300.3900, L300.4310 ####[facility] [address] [place], [address] IG% 1.200 High 0.0-0.9 [facility] Comment on above: Result Comment: IG% - Immature Granulocytes (promyelocytes, myelocytes and metamyelocytes) > 1% indicates that a LEFT SHIFT is Present. Performed By: #### L 500.2500, L501.4020, L100.0100, L300.3900, L300.4310 ####[facility] [address] [place], [address] Lymphocytes/100 WBC (Bld) 5.8 % Low 19-41 [facility] Comment on above: Performed By: #### L 500.2500, L501.4020, L100.0100, L300.3900, L300.4310 ####[facility] [address] [place], [address] MCH (RBC) [Entitic mass] 31.5 pg Normal 27.0-32.0 [facility] Comment on above: Performed By: #### L 500.2500, L501.4020, L100.0100, L300.3900, L300.4310 ####[facility] [address] [place], [address] MCHC (RBC) [Mass/Vol] 33.9 g/dL Normal 32-36 [facility] Comment on above: Performed By: #### L 500.2500, L501.4020, L100.0100, L300.3900, L300.4310 ####[facility] [address] [place], [address] MCV (RBC) [Entitic vol] 93.0 fL Normal 80-94 [facility] Comment on above: Performed By: #### L 500.2500, L501.4020, L100.0100, L300.3900, L300.4310 ####[facility] [address] [place], [address] Monocytes/100 WBC (Bld) 7.4 % Normal 0-10 [facility] Comment on above: Performed By: #### L 500.2500, L501.4020, L100.0100, L300.3900, L300.4310 ####[facility] [address] [place], [address] Neutrophils/100 WBC (Bld) 85.2 % High 47-70 [facility] Comment on above: Performed By: #### L 500.2500, L501.4020, L100.0100, L300.3900, L300.4310 ####[facility] [address] [place], [address] Nucleated RBC (Bld) [#/Vol] 0 10*3/uL Normal 0-5 [facility] Comment on above: Performed By: #### L 500.2500, L501.4020, L100.0100, L300.3900, L300.4310 ####[facility] [address] [place], [address] Platelet mean volume (Bld) [Entitic vol] 11.0 fL Normal 6.2-12.0 [facility] Comment on above: Performed By: #### L 500.2500, L501.4020, L100.0100, L300.3900, L300.4310 ####[facility] [address] [place], [address] Platelets (Bld) [#/Vol] 195 10*3/uL Normal 150-450 [facility] Comment on above: Performed By: #### L 500.2500, L501.4020, L100.0100, L300.3900, L300.4310 ####[facility] [address] [place], [address] RBC (Bld) [#/Vol] 5.01 10*6/uL Normal 4.6-6.2 [facility] Comment on above: Performed By: #### L 500.2500, L501.4020, L100.0100, L300.3900, L300.4310 ####[facility] [address] [place], [address] RDW SD 53.0 fl High 35.1-43.9 [facility] Comment on above: Performed By: #### L 500.2500, L501.4020, L100.0100, L300.3900, L300.4310 ####[facility] [address] [place], [address] WBC (Bld) [#/Vol] 12.7 10*3/uL High 4.4-11.0 [facility] Comment on above: Performed By: #### L 500.2500, L501.4020, L100.0100, L300.3900, L300.4310 ####[facility] [address] [place], [address] CTA Head AND Neck W/ Contras ton 09-07-2024 CTA Head AND Neck W/ Contrast [facility] Imaging Services [address] [place] [address] CTA Head AND Neck W/ Contrast MR#: [id number] Acct: [id number] Name: CLARK LYLES Rep #: [id number] : 1935 M 88 From: Axel Marie MD PCP: Brigitte Segal, COMPENSATOR Status: REG ER Study: CTA Head AND Neck W/ Contrast Date of Exam: Exam# [id number] Ordering Dr: Neo Tejeda DO PROCEDURE: CTA HEAD AND NECK W/ CONTRAST REASON FOR EXAM: Stroke TECHNIQUE: CTA imaging of the head and neck from the aortic arch to the skull vertex with intravenous contrast. 3D reconstructions. COMPARISON: Reviewed. FINDINGS: CT evidence of normal pressure hydrocephalus. Aortic Arch: Normal size and branching pattern. No significant atherosclerotic plaque. Brachiocephalic and Subclavians: Unremarkable RIGHT Carotid: Right CCA: Unremarkable. Right ICA: Unremarkable. Right ECA: Unremarkable. LEFT Carotid: Left CCA: Scattered atheromatous plaque. Left ICA: Unremarkable. Left ECA: Unremarkable. Vertebrals: Codominant. Arise from the subclavians. Both vertebrals form the basilar. RIGHT Vertebral: Unremarkable. LEFT Vertebral: Unremarkable. No intracranial aneurysms or large vascular malformations are identified. Anterior cerebral arteries: Unremarkable. Middle cerebral arteries: Unremarkable. Basilar artery: Unremarkable. Posterior cerebral arteries: Unremarkable. Other major branches of the posterior circulation: Unremarkable. Major venous structures: Unremarkable. Other findings: No lymphadenopathy. Lung apices are clear. Bones are unremarkable. CT/CTA Head AND Neck W/ Contrast IMPRESSION: No large vessel flow-limiting stenotic change. 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 One or more dose reduction techniques were used (e.g., Automated exposure control, adjustment of the mA and/or kV according to patient size, use of iterative reconstruction technique). Reading Location: [facility] CC: COMPENSATOR Brigitte Segal; Dr. Neo Tejeda DO Fermentation Engineer: Signed Normal [facility] Calcium oxalate crystals det ection in urine sediment by light microscopyOrdered By: Neo Tejeda on 09-07-2024 Calcium oxalate crystals LM Ql (Urine sed) 1+ /hpf [facility] Chest 1 Viewon 09-07-2024 Chest 1 View [facility] Imaging [facility] [address] [place] [address] Chest 1 View MR#: [id number] Acct: [id number] Name: CLARK LYLES Rep #: [id number] : 1935 M 88 From: Axel Marie MD PCP: MARIANA Humphreys Status: REG ER Study: Chest 1 View Date of Exam: 09/07/24 Exam# [id number] Ordering Dr: Neo Tejeda DO PROCEDURE: CHEST 1 VIEW REASON FOR EXAM: Cough TECHNIQUE: Frontal view of the chest. COMPARISON: Reviewed. FINDINGS: The cardiac and mediastinal contours are normal. The lungs are clear. RAD/Chest 1 View IMPRESSION: No acute radiographic process. Reading Location: [facility] CC: COMPENSATOR Brigitte Segal; Dr. Neo Tejeda DO Fermentation Engineer: Signed Normal [facility] D-Dimer Quantitative (DVT/PE )on 09-07-2024 D-DIMER QUANT 1.63 FEU/ug/m Invalid Interpretation Code 0.27-0.49 [facility] Comment on above: Result Comment: D-Di marv ELEVATED (>0.49): Additional studies and clinical assessments are indicated to conclude diagnosis of: Deep Vein Thrombosis (DVT) or Pulmonary Embolism (PE) CRITICAL VALUE CALLED TO NIKOLAS HILL 09/07/24 Abdiel Lizarraga. RESULTS READ BACK BY SAME. Performed By: #### L 100.0100, L500.2500 #### [facility] [address] [place], [address] Elbow min 3 Viewson 09-07-19 25 Elbow min 3 Views [facility] Imaging Services [address] [place] [address] Elbow min 3 Views MR#: [id number] Acct: [id number] Name: CLARK LYLES Rep #: [id number] : 1935 M 88 From: Axel Marie MD PCP: MARIANA Humphreys Status: REG ER Study: Elbow min 3 Views Date of Exam: 09/07/24 Exam# [id number] Ordering Dr: Neo Tejeda DO PROCEDURE: ELBOW MIN 3 VIEWS REASON FOR EXAM: Pain TECHNIQUE: Bilateral elbow x-rays three views each COMPARISON: None. FINDINGS: RIGHT ELBOW: No visible fracture. No suspicious bone lesion. Normal alignment. No effusion. LEFT ELBOW: No visible fracture. No suspicious bone lesion. Normal alignment. No effusion. Soft tissue swelling of the bilateral elbows is nonspecific. RAD/Elbow min 3 Views IMPRESSION: Soft tissue swelling bilaterally. No other acute radiographic process. Reading Location: [facility] CC: COMPENSATOR Brigitte Segal; Dr. Neo Tejeda DO Fermentation Engineer: Signed Normal [facility] Elbow min 3 Views [facility] [address] [place], [place] [address] Elbow min 3 Views MR#: [id number] Acct: [id number] Name: CLARK LYLES Rep #: [id number] : 1935 M 88 From: Axel Marie MD PCP: MARIANA Humphreys Status: REG ER Study: Elbow min 3 Views Date of Exam: 09/07/24 Exam# [id number] Ordering Dr: Neo Tejeda DO PROCEDURE: ELBOW MIN 3 VIEWS REASON FOR EXAM: Pain TECHNIQUE: Bilateral elbow x-rays three views each COMPARISON: None. FINDINGS: RIGHT ELBOW: No visible fracture. No suspicious bone lesion. Normal alignment. No effusion. LEFT ELBOW: No visible fracture. No suspicious bone lesion. Normal alignment. No effusion. Soft tissue swelling of the bilateral elbows is nonspecific. RAD/Elbow min 3 Views IMPRESSION: Soft tissue swelling bilaterally. No other acute radiographic process. Reading Location: [facility] CC: MARIANA Segal; Dr. Neo Tejeda DO Fermentation Engineer: Signed Normal [facility] Emergency Department Summary on 09-07-2024 Emergency Department Summary [facility] Medical Records Department [address] [place] [address] Emergency Department Summary 09/07/24 MR#: [id number] Acct: [id number] Name: CLARK LYLES Rep #: [id number] : 1935 88 From: Neo Tejeda DO PCP: Brigitte Segal, COMPENSATOR Status:ADM IN Location: [place] [address] HPI History of Present Illness Chief Complaint: Stroke Alert [facility] Medical History (Updated 09/07/24 @ 13:[address] Jerrell Faith MD) COVID-19 virus detected (08/23/20) Anxiety and depression Chronic anemia Acute respiratory failure with hypoxia Hypoxia Pneumonia due to COVID-19 virus GI bleed (12/2019) Atherosclerosis of coronary artery of [place] heart without angina pectoris Peripheral vascular occlusive disease Hyperlipidemia Essential (primary) hypertension GERD (gastroesophageal reflux disease) BPH (benign prostatic hyperplasia) Anxiety Incontinence Diverticulosis Home Medications ???Medication ???Instructions ???Recorded ???Last Taken ???Type citalopram 20 mg tablet 20 mg PO DAILY DEPRESSION 03/17/14 08/01/23 History multivitamin 1 ea PO DAILY HEALTH MINENANCE 08/01/23 History tamsulosin 0.4 mg capsule 0.4 mg PO DAILY PROSTATE 09/04/19 08/01/23 History ascorbic acid (vitamin C) 1,000 mg 1,000 mg PO DAILY SUPPLEMENT 08/01/23 History tablet atorvastatin 10 mg tablet 10 mg PO DAILY CHOLESTEROL 1 08/01/23 History clopidogrel 75 mg tablet 75 mg PO DAILY BLOOD THINNER 08/2508/01/23 History finasteride 5 mg tablet 5 mg PO DAILY PROSTATE 08/26/20 History hydrochlorothiazide 25 mg tablet 25 mg PO DAILY BLOOD PRESSURE #90 09/20/20 08/01/23 Rx tabs latanoprost 0.005 % eye drops 1 drp ophthalmic (eye) QHS GLAUCOM A 08/01/23 07/31/23 History metoprolol succinate 25 mg 25 mg PO DAILY BLOOD PRESSURE 10/2008/01/23 History tablet,extended release 24 hr omeprazole 40 mg capsule,delayed 40 mg PO DAILY ACID REFLUX 4 08/01/23 History release trazodone 50 mg tablet 50 mg PO QHS SLEEP 08/01/23 History Lactobacillus acidophilus 1 1,000 mmu cells PO DAILY #30 caps 08/04/23 Unknown Rx billion cell capsule amlodipine 10 mg tablet 5 mg PO DAILY BLOOD PESSURE Unknown History buspirone 10 mg tablet 10 mg PO TID 02/19/24 Unknown Hist ory Allergy/AdvReac Type Severity Reaction Status Date / Time Sulfa (Sulfonamide Allergy Rash Verified 02/19/24 11:13 Antibiotics) lisinopril AdvReac Other Verified 02/19/24 11:13 Family History Father CVA (cerebral vascular accident) Mother CVA (cerebral vascular accident) Hypertension Surgical History History of colonoscopy (12/2019) History of coronary artery stent placement (09/08/19) History of angioplasty of peripheral vessel (08/2017) History of herniorrhaphy History of esophagogastroduodenoscopy (EGD) (12/2019) Social History Smoking Status: Former smoker EXAM Physical Exam Const Vital Signs: 09/07/24 10:23 09/07/24 10:27 09/07/24 10:34 Temperature 98.1 F Temperature Source Temporal Pulse Rate 85 85 Respiratory Rate 18 18 Respiratory Pattern Blood Pressure 152/82 H 152/82 H Blood Pressure Mean 105 105 Pulse Ox 91 91 Oxygen Delivery Method Room Air Room Air Room Air Oxygen Flow Rate (L/min) Fraction of Inspired Oxygen (FIO2) 09/07/24 10:38 09/07/24 10:38 09/07/24 11:00 Temperature Temperature Source Pulse Rate 86 Respiratory Rate 18 Respiratory Pattern Blood Pressure 142/57 H 156/75 H Blood Pressure Mean 85 102 Pulse Ox 67 Oxygen Delivery Method Room Air Non-Rebreather Oxygen Flow Rate (L/min) 15 Fraction of Inspired Oxygen (FIO2) 09/07/24 11:10 09/07/24 11:18 09/07/24 11:32 Temperature Temperature Source Pulse Rate 82 81 Respiratory Rate 22 H 22 H Respiratory Pattern Tachypnea Tachypnea Blood Pressure Blood Pressure Mean Pulse Ox 95 93 Oxygen Delivery Method Airvo Oxygen Flow Rate (L/min) Fraction of Inspired Oxygen (FIO2) 50 50 40 09/07/24 12:29 Temperature Temperature Source Pulse Rate 94 Respiratory Rate 19 H Respiratory Pattern Blood Pressure 119/58 L Blood Pressure Mean 78 Pulse Ox 92 Oxygen Delivery Method Airvo Oxygen Flow Rate (L/min) Fraction of Inspired Oxygen (FIO2) MDM MDM MDM Narrative Medical decision making narrative: HISTORY OF PRESENT ILLNESS: 88-year-old male presents with concern for acute stroke. His last known well was 9 PM on 09/06/2024. Per his family patient was fo (more content not included)... Normal [facility] H AND P Exam - Hospitaliston 09-07-2024 H&P Exam - Hospitalist [facility] Medical Records Department [address] [place] [address] H P Exam - Hospitalist 09/07/24 1317 MR#: [id number] Acct: [id number] Name: CLARK LYLES Rep #: [id number] : 1935 88 From: Jerrell Faith MD PCP: Brigitte Segal, COMPENSATOR Status:ADM IN Location: [place] [address] HPI - General General Date of Admission: 09/07/24 Date of Service: 09/07/24 Chief Complaint: Altered mental status HPI Narrative CLARK LYLES, is a 88 M with past medical history is again for hypertension, previous history of tobacco use, coronary artery disease with previous PCI who was brought to the emergency department by the family on account of patient experiencing episodic confusion on the morning of his presentation. Per patient's family patient started complaining of dizziness the day prior. His son stayed with him throughout the whole night. On the morning of his presentation patient's daughter called and found patient to be confused and slurring his words. He was subsequently brought to the emergency department. Acute CVA was ruled out. Patient was however found to be significantly hypoxic with oxygen saturation in the 60s. Was placed on normal invasive ventilation???Airvo with improvement in his oxygen saturation as well as mentation. Chest x-ray obtained in the ED came back unremarkable admitted to monitored bed for further management [facility] Medical History (Updated 09/07/24 @ 13:[address] Jerrell Faith MD) COVID-19 virus detected (08/23/20) Anxiety and depression Chronic anemia Acute respiratory failure with hypoxia Hypoxia Pneumonia due to COVID-19 virus GI bleed (12/2019) Atherosclerosis of coronary artery of [place] heart without angina pectoris Peripheral vascular occlusive disease Hyperlipidemia Essential (primary) hypertension GERD (gastroesophageal reflux disease) BPH (benign prostatic hyperplasia) Anxiety Incontinence Diverticulosis Home Medications ???Medication ???Instructions ???Recorded ???Last Taken ???Type citalopram 20 mg tablet 20 mg PO DAILY DEPRESSION 03/17/14 08/01/23 History multivitamin 1 ea PO DAILY HEALTH MINENANCE 08/01/23 History tamsulosin 0.4 mg capsule 0.4 mg PO DAILY PROSTATE 09/04/19 08/01/23 History ascorbic acid (vitamin C) 1,000 mg 1,000 mg PO DAILY SUPPLEMENT 08/01/23 History tablet atorvastatin 10 mg tablet 10 mg PO DAILY CHOLESTEROL 1 08/01/23 History clopidogrel 75 mg tablet 75 mg PO DAILY BLOOD THINNER 08/2508/01/23 History finasteride 5 mg tablet 5 mg PO DAILY PROSTATE 08/26/20 History hydrochlorothiazide 25 mg tablet 25 mg PO DAILY BLOOD PRESSURE #90 09/20/20 08/01/23 Rx tabs latanoprost 0.005 % eye drops 1 drp ophthalmic (eye) QHS GLAUCOM A 08/01/23 07/31/23 History metoprolol succinate 25 mg 25 mg PO DAILY BLOOD PRESSURE 10/2008/01/23 History tablet,extended release 24 hr omeprazole 40 mg capsule,delayed 40 mg PO DAILY ACID REFLUX 4 08/01/23 History release trazodone 50 mg tablet 50 mg PO QHS SLEEP 08/01/23 History Lactobacillus acidophilus 1 1,000 mmu cells PO DAILY #30 caps 08/04/23 Unknown Rx billion cell capsule amlodipine 10 mg tablet 5 mg PO DAILY BLOOD PESSURE Unknown History buspirone 10 mg tablet 10 mg PO TID 02/19/24 Unknown Hist ory Allergy/AdvReac Type Severity Reaction Status Date / Time Sulfa (Sulfonamide Allergy Rash Verified 02/19/24 11:13 Antibiotics) lisinopril AdvReac Other Verified 02/19/24 11:13 Family History Father CVA (cerebral vascular accident) Mother CVA (cerebral vascular accident) Hypertension Surgical History History of colonoscopy (12/2019) History of coronary artery stent placement (09/08/19) History of angioplasty of peripheral vessel (08/2017) History of herniorrhaphy History of esophagogastroduodenoscopy (EGD) (12/2019) Social History Smoking Status: Former smoker ROS ROS Narrative GENERAL: denies fever, chills, night sweats, HEENT: denies headache, sinus congestion, RESPIRATORY: denies cough, sputum production, CARDIAC: denies chest pain, palpitations, orthopnea, PND GASTROINTESTINAL: denies abdominal pain, nausea, vomiting, melena, GENITOURINARY: denies dysuria, urgency, frequency, heamaturia EXTREMITY: denies swelling MUSCULOSKELETAL: denies current joint pain or tenderness NEUROLOGIC: denies focal numbness, weakness, tingling HEMATOLOGIC: denies easy bruising and/or hemorrhage INTEGUMENT: denies rashes PSYCHIATRIC: denies suicidal or homicidal ideation Vital Signs Vital Signs Vital Signs: 09/07/24 10:23 02/ (more content not included)... Normal [facility] Hyaline casts LM.LPF (Urine sed) [#/Area]Ordered By: Neo Tejeda on 09-07-2024 Hyaline casts (Urine sed) [#/Area] 0 /[LPF] 0-5 [facility] Influenza virus A and B and SARS-CoV-2 (COVID-19) and Respiratory syncytial virus RNAOrdered By: Neo Tejeda on 09-07-2024 SARS-CoV-2 (COVID-19) RNA CAMERON+probe Ql (Unsp spec) [facility] International normalized rat io (INR) calculationOrdered By: Neo Tejeda on 09-07-2024 INR Coag (Bld) [Relative time] 1.0 {INR} [facility] Ketones Test strip Ql (U)Ord ered By: Neo Tejeda on 09-07-2024 Ketones Ql (U) 5 mg/dl High Negative [facility] L501.4020on 09-07-2024 TROPONIN-I HS 68 pg/mL Normal 3.0-78.0 [facility] Comment on above: Order Comment: Comme nts: SPECIMEN #3'TROP' Serial specimen #1, #2 or #3: 3 Result Comment: Plea se Note: New Test Units and Gender Specific Reference Ranges. For more information see Policy Stat Procedure [place] High Sensitivity Troponin (TNIH) and attachments. Performed By: #### L 100.0100, L500.2500 #### [facility] [address] [place], [address] TROPONIN-I HS 76 pg/mL Normal 3.0-78.0 [facility] Comment on above: Order Comment: Comme nts: SPECIMEN #2'TROP' Serial specimen #1, #2 or #3: 2 Result Comment: Plea se Note: New Test Units and Gender Specific Reference Ranges. For more information see Policy Stat Procedure [place] High Sensitivity Troponin (TNIH) and attachments. Performed By: #### L 100.0100, L500.2500 #### [facility] [address] [place], [address] TROPONIN-I HS 63 pg/mL Normal 3.0-78.0 [facility] Comment on above: Order Comment: 'TROP ' Serial specimen #1, #2 or #3: 1 Result Comment: Plea se Note: New Test Units and Gender Specific Reference Ranges. For more information see Policy Stat Procedure [place] High Sensitivity Troponin (TNIH) and attachments. Performed By: #### L 500.2500, L501.4020, L100.0100, L300.3900, L300.4310 ####[facility] [address] [place], [address] M100.678on 09-07-2024 M100.678 Pending SARS-CoV-2 (COVID 19) Negative INFLUENZA A Negative INFLUENZA B Negative RSV PCR Negative Normal [facility] Comment on above: Performed By: #### L 100.0100, L500.2500 #### [facility] [address] [place], [place], [id number] Measurement, pHOrdered By: Hugo Tejeda on 09-07-2024 pH (Unsp spec) 7.38 [pH] 7.35-7.45 [facility] Microscopic analysis of urin e for red blood cells (RBC)Ordered By: Neo Tejeda on 09-07-2024 Microscopic analysis of urine for red blood cells (RBC) 0-5 SEEN /hpf 0-5 [facility] Mucus LM Ql (Urine sed)Order ed By: Neo Tejeda on 09-07-2024 Mucus Ql (Urine sed) 1+ /hpf [facility] Nitrite Test strip Ql (U)Ord ered By: Neo Tejeda on 09-07-2024 Nitrite Ql (U) Negative Negative [facility] No Panel InformationOrdered By: Neo Tejeda on 09-07-2024 Blood Gas Clinical Comments AIRVO 60L [facility] Blood Gas Sample Site R Radial [facility] Blood Gas Specimen Type ART [facility] Blood Gas Vent Mode Not entered [facility] Oxygen Delivery Device HFNC [facility] Partial Thromboplast Timeon 09-07-2024 aPTT Coag (Bld) [Time] 26.5 s Normal 24.1-36.2 [facility] Comment on above: Performed By: #### L 500.2500, L501.4020, L100.0100, L300.3900, L300.4310 ####[facility] [address] [place], [place], [id number] Protein Test strip Ql (U)Ord ered By: Neo Tejeda on 09-07-2024 Protein Ql (U) 30 mg/dl High Negative [facility] Prothrombin Time w/INRon INR Coag (PPP) [Relative time] 1.0 {INR} Normal [facility] Comment on above: Performed By: #### L 500.2500, L501.4020, L100.0100, L300.3900, L300.4310 ####[facility] [address] [place], [address] PT Coag (PPP) [Time] 13.6 s Normal 11.7-14.9 [facility] Comment on above: Performed By: #### L 500.2500, L501.4020, L100.0100, L300.3900, L300.4310 ####[facility] [address] [place], [address] Prothrombin timeOrdered By: Neo Tejeda on 09-07-2024 PT Coag (PPP) [Time] 13.6 s 11.7-14.9 [facility] RESPIRATORY PANEL MOLECULARo n 09-07-2024 RP PANEL Normal Reference Ran ge = Not Detected Resp path DNA+RNA Pnl Resp CAMERON+probe Nucleic acid amplification test method ADENOVIRUS Not Detected INFLUENZA A Not Detected INFLUENZA A (SUBTYPE H1) Not Detected INFLUENZA A (SUBTYPE H3) Not Detected INFLUENZA B Not Detected HUMAN METAPHNEUMO Not Detected PARAINFLUENZA 1 Not Detected PARAINFLUENZA 2 Not Detected PARAINFLUENZA 3 Not Detected PARAINFLUENZA 4 Not Detected RHINOVIRUS Not Detected RSV A Not Detected RSV B Not Detected Normal [facility] Comment on above: Performed By: #### L 100.0100, L500.2500 #### [facility] [address] [facility] [facility] [place], [address] Respiratory pathogens detect ion panel by molecular detection methodOrdered By: Jerrell Faith on 09-07-2024 Respiratory pathogens DNA and RNA panel CAMERON+probe (Resp) [facility] STROKE Brain/Head without Co nton 09-07-2024 STROKE Brain/Head without Cont [facility] [address] [place] [address] STROKE Brain/Head without Cont MR#: [id number] Acct: [id number] Name: CLARK LYLES Rep #: [id number] : 1935 M 88 From: Axel Marie MD PCP: CHRISTINE Brown Status: REG ER Study: STROKE Brain/Head without Cont Date of Exam: 0 09/07/24 Exam# [id number] Ordering Dr: Neo Tejeda DO EXAM: STROKE BRAIN/HEAD WITHOUT CONT CLINICAL HISTORY: Stroke COMPARISON: None. TECHNIQUE: Noncontrast images of the head with multiplanar reconstructions. Dose reduction techniques were used including intermediate exposure control (AEC),iterative reconstruction technique, and/or mA and/or KV dose adjustments based on patient's size. FINDINGS: CT HEAD FINDINGS: No acute intracranial hemorrhage, mass, mass effect, midline shift or pathologic extra-axial fluid collection. No hydrocephalus. Age- appropriate cerebral volume and white matter. Visualized paranasal sinuses and mastoid air cells are clear. The calvarium is grossly intact. CT/STROKE Brain/Head without Cont IMPRESSION: No CT evidence of acute intracranial pathology. Attempting to contact referring provider At the time of this dictation Reading Location: [facility] CC: Dr. Neo Tejeda DO; CHRISTINE Brown Fermentation Engineer: Signed Normal [facility] Squamous epithelial cells de tection in urine sediment by light microscopyOrdered By: Neo Tejeda on 09-07-2024 Epithelial cells.squamous LM Ql (Urine sed) 0-5 SEEN /hpf 0-5 [facility] Total carbon dioxide measure mentOrdered By: Neo Tejeda on 09-07-2024 CO2 [Moles/Vol] 18 mmol/L [facility] Troponin IOrdered By: Jerrell Faith on 09-07-2024 Troponin I 68 pg/mL 3.0-78.0 [facility] Comment on above: Please Note: [place] t Units and Gender Specific Reference Ranges. For more information see Policy Stat Procedure [place] High Sensitivity Troponin (TNIH) and attachments. Urinalysis, Completeon 09-07 CA OX CRYSTAL 1+ /hpf Normal [facility] Comment on above: Order Comment: COLLE CTOR TO SPECIFY Performed By: #### L 100.0100, L500.2500 #### [facility] [address] [place], [address] BACTERIA RARE Normal None Seen [facility] Comment on above: Order Comment: COLLE CTOR TO SPECIFY Performed By: #### L 100.0100, L500.2500 #### [facility] [address] [place], [address] CAST,HYALINE 0-5 SEEN Normal 0-5 [facility] Comment on above: Order Comment: COLLE CTOR TO SPECIFY Performed By: #### L 100.0100, L500.2500 #### [facility] [address] [place], [address] EPI,SQUAMOUS 0-5 SEEN Normal 0-5 [facility] Comment on above: Order Comment: COLLE CTOR TO SPECIFY Performed By: #### L 100.0100, L500.2500 #### [facility] [address] [place], [address] Mucus Ql (Urine sed) 1+ /hpf Normal [facility] Comment on above: Order Comment: COLLE CTOR TO SPECIFY Performed By: #### L 100.0100, L500.2500 #### [facility] [address] [place], [address] RBC 0-5 SEEN Normal 0-5 [facility] Comment on above: Order Comment: COLLE CTOR TO SPECIFY Performed By: #### L 100.0100, L500.2500 #### [facility] [address] [place], [address] WBC 0-5 SEEN Normal 0-5 [facility] Comment on above: Order Comment: COLLE CTOR TO SPECIFY Performed By: #### L 100.0100, L500.2500 #### [facility] [address] [place], [address] Urine clarityOrdered By: Ninoska Tejeda on 09-07-2024 Clarity (U) Clear Clear [facility] Urine color determinationOrd ered By: Neo Tejeda on 09-07-2024 Color (U) Yellow Yellow [facility] Urine glucose detectionOrder ed By: Neo Tejeda on 09-07-2024 Glucose Ql (U) Normal mg/dl Normal [facility] Urine leukocyte esterase det ection by dipstickOrdered By: Neo Tejeda on 09-07-2024 Leukocyte esterase Test strip Ql (U) Negative Negative [facility] Urine pHOrdered By: Neo escobedo on 09-07-2024 pH (U) 6.0 [pH] 5.0 - 8.0 [facility] Urine sediment bacteria coun t by microscopy (number/high power field)Ordered By: Neo Tejeda on 09-07-2024 Bacteria LM.HPF (Urine sed) [#/Area] RARE /hpf None Seen [facility] Urine specific gravity measu rementOrdered By: Neo Tejeda on 09-07-2024 Specific gravity (U) [Rel density] 1.010 1.002-1.03 0 [facility] Urine urobilinogen measureme ntOrdered By: Neo Tejeda on 09-07-2024 Urobilinogen Ql (U) Normal mg/dl Normal [facility] White blood cell countOrdere d By: Neo Tejeda on 09-07-2024 White blood cell count 0-5 SEEN /hpf 0-5 [facility] CNOVon 03-27-2024 CNOV Office Visit (FAMPWS ) CLARK LYLES ([id number]) 1935 M Date Time Provider Department 03/27/24 8:00 AM [employer]TE [employer] During your visit today, we recorded the following information about you: Pulse Respiration Blood pressure Weight 63/minute 16/minute 126/67 68.9 kg Brigitte Segal APRN.GANG LEADER 03/27/2024 8:28 AM Addendum This is a 88 year old male who presents today with: Patient presents with: Follow Up Abdominal Pain: Follow up HISTORY OF PRESENT ILLNESS: Clark Lyles is a 88 year old male. Patient presents with: Follow Up Abdominal Pain: Follow up Abdomen is doing better. First thing in the morning just a little discomfort left, resolves when up and moving around. No N/V. Bowels moving ok. No fever or chills. Had been losing weight but now back up a couple pounds. Doesn't sleep well. Goes to bed between 9 AND 10 pm. Does not fall asleep right away. Goes to BR a couple times at night, but can fall back asleep pretty quick. Taking Tylenol PM. PAST MEDICAL HISTORY: PAST MEDICAL HISTORY No date: Acute gastritis 01/05/2009: Anxiety state 03/17/2013: BPH (benign prostatic hyperplasia) No date: Diverticulosis of colon (without mention of hemorrhage) Comment: Diverticulosis 01/08/2006: Essential hypertension, benign 01/10/2011: GERD (gastroesophageal reflux disease) No date: Hemangioma of other sites Comment: liver 05/10/2016: Hyperbilirubinemia 03/28/2016: Hyperlipidemia LDL goal <100 07/11/2017: Parkinson's disease (HCC) PAST SURGICAL HISTORY 05/27/2013: COLONOSCOPY FLX DX W/COLLJ SPEC WHEN PFRMD Comment: Colonoscopy 01/19/2020: COLONOSCOPY FLX DX W/COLLJ SPEC WHEN PFRMD No date: ESOPHAGOGASTRODUODENOSCOPY TRANSORAL DIAGNOSTIC Comment: EGD 05/27/2013: ESOPHAGOGASTRODUODENOSCOPY TRANSORAL DIAGNOSTIC Comment: EGD 01/19/2020: ESOPHAGOGASTRODUODENOSCOPY TRANSORAL DIAGNOSTIC 05/22/2017: PAST SURGICAL HISTORY OF; Right Comment: Thu R Inguinal Herniorrhaphy with excison cord lipoma performed by Dr. Robe Mackenzie at [facility] 03-18-14: REVSC OPN/PRQ FEM/POP W/STNT/ANGIOP SM VSL Comment: No date: RPR 1ST INGUN HRNA AGE 5 YRS/> REDUCIBLE Comment: Hernia repair, inguinal ALLERGIES Lisinopril and Sulfa (Sulfonamide Antibiotics) MEDICATIONS Current Outpatient Medications Medication Sig clopidogrel (PLAVIX) 75 mg tablet Take 1 tablet by mouth once daily. amLODIPine (NORVASC) 5 mg tablet Take 1 tablet by mouth once daily. pantoprazole DR (PROTONIX) 40 mg tablet Take 1 tablet by mouth once daily. tamsulosin (FLOMAX) 0.4 mg Take 2 capsules by mouth once daily. metoprolol succinate ER (TOPROL XL) 25 mg 24 hr tablet Take 1 tablet by mouth once daily. traZODone (DESYREL) 50 mg tablet Take 1 tablet by mouth daily at bedtime. Lactobacillus acidophilus (PROBIOTIC ACIDOPHILUS ORAL) Take by mouth. hydroCHLOROthiazide 25 mg tablet Take 0.5 tablets by mouth once daily. finasteride (PROSCAR) 5 mg tablet Take 1 tablet by mouth once daily. atorvastatin (LIPITOR) 10 mg tablet Take 1 tablet by mouth once daily. citalopram (CELEXA) 20 mg tablet Take 1 tablet by mouth once daily. omeprazole (PRILOSEC) 40 mg capsule Take 1 capsule by mouth once daily. nitroglycerin sublingual (NITROQUICK) 0.4 mg SL tablet Dissolve 1 tablet under the tongue every 5 minutes as needed for Chest Pain. MULTIVITAMIN (MULTIPLE VITAMINS ORAL) Take by mouth once daily. COMPLEX C SR 500 MG-25 MG-25 MG TAB 2 tabs daily No current facility-administered medications for this visit. FAMILY HISTORY Problem Relation Age of Onset Hypertension Mother Stroke Mother GI Father Stroke Father Social History Tobacco Use Smoking status: Former Smokeless tobacco: Never Tobacco comments: quit 1999 Vaping Use Vaping status: Never Used Substance Use Topics Alcohol use: Yes Comment: seldom Drug use: No EXAM: BP 126/67 Pulse 63 Resp 16 Wt 68.9 kg (152 lb) SpO2 94% BMI 21.81 kg/m? PHYSICAL EXAM: General Appearance: well appearing, alert and oriented. Skin: Ecchymosis on forearms under skin, dark appearance and multiple white skin lesions from scarring. Head: normocephalic, no obvious masses, lesions, tenderness or abnormalities. Eyes: Wears glasses Neck: trachea midline, carotids normal upstroke, no bruit or thrill. Lungs: Chest rise AND fall symmetrical, Lungs clear to auscultation. No wheezing or rhonchi. No rales. Abdomen: normal bowel sounds, no mass, non-tender Heart: S1S2, no gallop, no rub, no murmur Ext: no clubbing, cyanosis or edema. Mood: bright affect, speech clear, answers questions appropriately LABS: reviewed recent labs with pt. ASSESSMENT/PLAN: 1. S/P primary angioplasty with coronary stent - ICD9: V45.82, ICD10: Z95.5 Stable. Continue medications as current. - CLOPIDOGREL 75 MG TABLET - ATORVASTATIN 10 MG TABLET - METOPROLOL SUCCINATE (more content not included)... Normal [facility] CLARK LYLES ([id number]) 1935 M Date Time Provider Department 02/26/24 [facility] During your visit today, we recorded the following information about you: Brigitte Segal APRN.CNP 02/26/2024 8:00 AM Signed Patient does not have MyChart. Please let him know that he was negative for H. pylori the bacteria that causes ulcers. Blood counts are okay, kidney function liver function, and pancreas are all normal. Lets see how he does on the pantoprazole. Shirley Rivera MA 02/26/2024 8:29 AM Signed Patient was made aware of the results. Patient verbalizes understanding. Shirley Rivera Ma Allergies As of Date: 02/26/2024 Noted Allergy Reaction LISINOPRIL 12/28/2009 3 - Cough SULFA (SULFONAMIDE ANTIBIOTICS) 03/09/2006 4 - Hives Date Reviewed: 02/25/2024 Reviewed by: Brigitte Segal APRN.GANG LEADER - Fully Assessed Prescriptions as of 02/26/2024 - amLODIPine (NORVASC) 5 mg tablet Take 1 tablet by mouth once daily. - metroNIDAZOLE (FLAGYL) 500 mg tablet Take 1 tablet by mouth three times a day for 5 days. - ciprofloxacin HCl (CIPRO) 500 mg tablet Take 1 tablet by mouth two times a day for 5 days. - pantoprazole DR (PROTONIX) 40 mg tablet Take 1 tablet by mouth once daily. - tamsulosin (FLOMAX) 0.4 mg Take 2 capsules by mouth once daily. - metoprolol succinate ER (TOPROL XL) 25 mg 24 hr tablet Take 1 tablet by mouth once daily. - busPIRone (BUSPAR) 10 mg tablet Take 1 tablet by mouth three times a day. - traZODone (DESYREL) 50 mg tablet Take 1 tablet by mouth daily at bedtime. - Lactobacillus acidophilus (PROBIOTIC ACIDOPHILUS ORAL) Take by mouth. - hydroCHLOROthiazide 25 mg tablet Take 0.5 tablets by mouth once daily. - finasteride (PROSCAR) 5 mg tablet Take 1 tablet by mouth once daily. - atorvastatin (LIPITOR) 10 mg tablet Take 1 tablet by mouth once daily. - citalopram (CELEXA) 20 mg tablet Take 1 tablet by mouth once daily. - omeprazole (PRILOSEC) 40 mg capsule Take 1 capsule by mouth once daily. - clopidogrel (PLAVIX) 75 mg tablet Take 1 tablet by mouth once daily. - nitroglycerin sublingual (NITROQUICK) 0.4 mg SL tablet Dissolve 1 tablet under the tongue every 5 minutes as needed for Chest Pain. - MULTIVITAMIN (MULTIPLE VITAMINS ORAL) Take by mouth once daily. - COMPLEX C SR 500 MG-25 MG-25 MG TAB 2 tabs daily Meds Comments as of 04/18/2021: Taking Saw [place]. Problem List As Of Date 02/26/2024 Noted Resolved BENIGN HYPERTENSION [I10] 01/08/2006 Anxiety state [F41.1] 01/05/2009 GERD (gastroesophageal reflux disease) [K21.9] 01/10/2011 BPH (benign prostatic hyperplasia) [N40.0] 03/17/2013 PAD (peripheral artery disease) (HCC) [I73.9] 02/28/2014 Hyperlipidemia LDL goal <100 [E78.5] 03/28/2016 Hyperbilirubinemia [E80.6] 05/10/2016 Parkinson's disease (HCC) [G20.A1] 07/11/2017 Angina pectoris (HCC) [I20.9] 08/25/2019 Restless legs syndrome [G25.81] 01/27/2020 Iron deficiency anemia due to chronic blood los*01/27/2020 Coronary artery disease involving [place] rabago*12/22/2020 S/P primary angioplasty with coronary stent [Z9*12/22/2020 Fall from standing [W19.XXXA] 09/20/2021 Encounter for support and coordination of trans*08/11/2023 Acute respiratory failure with hypoxia (HCC) [J*09/25/2023 Encounter Status:Closed by SHIRLEY RIVERA on 02/26/24 Normal [facility] Amylase SerPl-cCncon 024 Amylase [Catalytic activity/Vol] 52 U/L Normal 30-104 [facility] Comment on above: Order Comment: Speci men Type: BLOOD SPECIMENOrdering Facility: [facility] Address: [address] [place] [address] Performed By: #### 3 040-3, 1798-8, 54943-0 ####[facility] LABCLIA [id number] [place] [address] [place] CBC W Auto Differential pane l (Bld)on 02-25-2024 Basophils (Bld) [#/Vol] 0.04 10*3/uL Normal <0.11 [facility] Comment on above: Order Comment: Speci men Type: BLOOD SPECIMENOrdering Facility: [facility] Address: [address] [place] [address] Performed By: #### 5 7021-8 ####[facility] LABCLIA [id number] [place] [address] [place] Basophils/100 WBC (Bld) 0.4 % Normal [facility] Comment on above: Order Comment: Speci men Type: BLOOD SPECIMENOrdering Facility: [facility] Address: [address] [place] [address] Performed By: #### 5 7021-8 ####[facility] LABCLIA [id number] [place] [address] [place] Differential cell count method Nom (Bld) Auto Normal [facility] Comment on above: Order Comment: Speci men Type: BLOOD SPECIMENOrdering Facility: [facility] Address: [address] [place] [address] Performed By: #### 5 7021-8 ####[facility] LABCLIA [id number] [place] [address] [place] Eosinophils (Bld) [#/Vol] 0.31 10*3/uL Normal <0.46 [facility] Comment on above: Order Comment: Speci men Type: BLOOD SPECIMENOrdering Facility: [facility] Address: [address] [place] [address] Performed By: #### 5 7021-8 ####[facility] LABCLIA [id number] [place] [address] [place] Eosinophils/100 WBC (Bld) 2.9 % Normal [facility] Comment on above: Order Comment: Speci men Type: BLOOD SPECIMENOrdering Facility: [facility] Address: [address] [place] [address] Performed By: #### 5 7021-8 ####[facility] LABCLIA [id number] [place] [address] [place] Erythrocyte distribution width (RBC) [Ratio] 14.8 % Normal 11.5-15.0 [facility] Comment on above: Order Comment: Speci men Type: BLOOD SPECIMENOrdering Facility: [facility] Address: [address] [place] [address] Performed By: #### 5 7021-8 ####[facility] LABCLIA [id number] [place] [address] [place] Hematocrit (Bld) [Volume fraction] 50.9 % Normal 39.0-51.0 [facility] Comment on above: Order Comment: Speci men Type: BLOOD SPECIMENOrdering Facility: [facility] Address: [address] [place] [address] Performed By: #### 5 7021-8 ####[facility] LABCLIA [id number] [place] [address] [place] Hemoglobin (Bld) [Mass/Vol] 16.4 g/dL Normal 13.0-17.0 [facility] Comment on above: Order Comment: Speci men Type: BLOOD SPECIMENOrdering Facility: [facility] Address: [address] [place] [address] Performed By: #### 5 7021-8 ####[facility] LABCLIA [id number] [place] [address] [place] Immature granulocytes (Bld) [#/Vol] 0.08 10*3/uL Normal <0.10 [facility] Comment on above: Order Comment: Speci men Type: BLOOD SPECIMENOrdering Facility: [facility] Address: [address] [place] [address] Performed By: #### 5 7021-8 ####[facility] LABIA [id number] [place] [address] [place] Immature granulocytes/100 WBC (Bld) 0.7 % Normal [facility] Comment on above: Order Comment: Speci men Type: BLOOD SPECIMENOrdering Facility: [facility] Address: [address] [place] [address] Performed By: #### 5 7021-8 ####[facility] LABIA [id number] [place] [address] [place] Lymphocytes (Bld) [#/Vol] 0.73 10*3/uL Low 1.00-4.00 [facility] Comment on above: Order Comment: Speci men Type: BLOOD SPECIMENOrdering Facility: [facility] Address: [address] [place] [address] Performed By: #### 5 7021-8 ####[facility] LABCLIA [id number] [place] [address] [place] Lymphocytes/100 WBC (Bld) 6.7 % Normal [facility] Comment on above: Order Comment: Speci men Type: BLOOD SPECIMENOrdering Facility: [facility] Address: [address] [place] [address] Performed By: #### 5 7021-8 ####[facility] LABIA [id number] [place] [address] [place] MCH (RBC) [Entitic mass] 29.8 pg Normal 26.0-34.0 [facility] Comment on above: Order Comment: Speci men Type: BLOOD SPECIMENOrdering Facility: [facility] Address: [address] [place] [address] Performed By: #### 5 7021-8 ####[facility] LABIA [id number] [place] [address] [place] MCHC (RBC) [Mass/Vol] 32.2 g/dL Normal 30.5-36.0 [facility] Comment on above: Order Comment: Speci men Type: BLOOD SPECIMENOrdering Facility: [facility] Address: [address] [place] [address] Performed By: #### 5 7021-8 ####[facility] LABIA [id number] [place] [address] [place] MCV (RBC) [Entitic vol] 92.4 fL Normal 80.0-100.0 [facility] Comment on above: Order Comment: Speci men Type: BLOOD SPECIMENOrdering Facility: [facility] Address: [address] [place] [address] Performed By: #### 5 7021-8 ####[facility] LABIA [id number] [place] [address] [place] Monocytes (Bld) [#/Vol] 0.75 10*3/uL Normal <0.87 [facility] Comment on above: Order Comment: Speci men Type: BLOOD SPECIMENOrdering Facility: [facility] Address: [address] [place] [address] Performed By: #### 5 7021-8 ####[facility] LABCLIA [id number] [place] [address] [place] Monocytes/100 WBC (Bld) 6.9 % Normal [facility] Comment on above: Order Comment: Speci men Type: BLOOD SPECIMENOrdering Facility: [facility] Address: [address] [place] [address] Performed By: #### 5 7021-8 ####[facility] LABCLIA [id number] [place] [address] [place] Neutrophils (Bld) [#/Vol] 8.92 10*3/uL High 1.45-7.50 [facility] Comment on above: Order Comment: Speci men Type: BLOOD SPECIMENOrdering Facility: [facility] Address: [address] [place] [address] Performed By: #### 5 7021-8 ####[facility] LABCLIA [id number] [place] [address] [place] Neutrophils/100 WBC (Bld) 82.4 % Normal [facility] Comment on above: Order Comment: Speci men Type: BLOOD SPECIMENOrdering Facility: [facility] Address: [address] [place] [address] Performed By: #### 5 7021-8 ####[facility] LABCLIA [id number] [place] [address] [place] Nucleated RBC (Bld) [#/Vol] 10*3/uL Normal <0.01 [facility] Comment on above: Order Comment: Speci men Type: BLOOD SPECIMENOrdering Facility: [facility] Address: [address] [place] [address] Performed By: #### 5 7021-8 ####[facility] LABCLIA [id number] [place] [address] [place] Nucleated RBC/100 WBC (Bld) [Ratio] 0.0 /100 WBC Normal [facility] Comment on above: Order Comment: Speci men Type: BLOOD SPECIMENOrdering Facility: [facility] Address: [address] [place] [address] Performed By: #### 5 7021-8 ####[facility] LABCLIA [id number] [place] [address] [place] Platelet mean volume (Bld) [Entitic vol] 11.8 fL Normal 9.0-12.7 [facility] Comment on above: Order Comment: Speci men Type: BLOOD SPECIMENOrdering Facility: [facility] Address: [address] [place] [address] Performed By: #### 5 7021-8 ####[facility] LABCLIA [id number] [place] [address] [place] Platelets (Bld) [#/Vol] 234 10*3/uL Normal 150-400 [facility] Comment on above: Order Comment: Speci men Type: BLOOD SPECIMENOrdering Facility: [facility] Address: [address] [place] [address] Performed By: #### 5 7021-8 ####[facility] LABIA [id number] [place] [address] [place] RBC (Bld) [#/Vol] 5.51 10*6/uL Normal 4.20-6.00 [facility] Comment on above: Order Comment: Speci men Type: BLOOD SPECIMENOrdering Facility: [facility] Address: [address] [place] [address] Performed By: #### 5 7021-8 ####[facility] LABCLIA [id number] [place] [address] [place] WBC (Bld) [#/Vol] 10.83 10*3/uL Normal 3.70-11.00 [facility] Comment on above: Order Comment: Speci men Type: BLOOD SPECIMENOrdering Facility: [facility] Address: [address] [place] [address] Performed By: #### 5 7021-8 ####[facility] SUZANNE [id number] [address] [place] [address] [place] CNOVon 02-25-2024 CNOV Office Visit (FAMPWS ) CLARK LYLES ([id number]) 1935 M Date Time Provider Department 02/25/24 8:20 [facility] During your visit today, we recorded the following information about you: Pulse Respiration Blood pressure Weight 60/minute 16/minute 148/70 68.9 kg Brigitte Segal, [employer]ANG LEADER 02/25/2024 8:51 AM Signed This is a 88 year old male who presents today with: Patient presents with: Abdominal Pain: Pain, gas, nausea for awhile Sleep Problem HISTORY OF PRESENT ILLNESS: Clark Lyles is a 88 year old male. Patient presents with: Abdominal Pain: Pain, gas, nausea for awhile Sleep Problem Mid abdominal pain. Gas, belching. No diarrhea. Daughter had him stop aspirin. Takes Mylanta, Gas X, AND TUMS. Weight loss. No appetite. Going on for months. A lot of trouble sleeping. No fever or chills. Dull abdominal pain. Nausea. Eating resolves the pain. PAST MEDICAL HISTORY: PAST MEDICAL HISTORY Diagnosis Date Acute gastritis [...] lipoma performed by Dr. Robe Mackenzie at [facility] REVSC OPN/PRQ FEM/POP W/STNT/ANGIOP SM VSL 03-18-14 RPR 1ST INGUN HRNA AGE 5 YRS/> REDUCIBLE Hernia repair, inguinal ALLERGIES Lisinopril and Sulfa (Sulfonamide Antibiotics) MEDICATIONS Current Outpatient Medications Medication Sig tamsulosin (FLOMAX) 0.4 mg Take 2 capsules by mouth once daily. metoprolol succinate ER (TOPROL XL) 25 mg 24 hr tablet Take 1 tablet by mouth once daily. busPIRone (BUSPAR) 10 mg tablet Take 1 tablet by mouth three times a day. traZODone (DESYREL) 50 mg tablet Take 1 tablet by mouth daily at bedtime. Lactobacillus acidophilus (PROBIOTIC ACIDOPHILUS ORAL) Take by mouth. hydroCHLOROthiazide 25 mg tablet Take 0.5 tablets by mouth once daily. finasteride (PROSCAR) 5 mg tablet Take 1 tablet by mouth once daily. atorvastatin (LIPITOR) 10 mg tablet Take 1 tablet by mouth once daily. citalopram (CELEXA) 20 mg tablet Take 1 tablet by mouth once daily. omeprazole (PRILOSEC) 40 mg capsule Take 1 capsule by mouth once daily. clopidogrel (PLAVIX) 75 mg tablet Take 1 tablet by mouth once daily. MULTIVITAMIN (MULTIPLE VITAMINS ORAL) Take by mouth once daily. nitroglycerin sublingual (NITROQUICK) 0.4 mg SL tablet Dissolve 1 tablet under the tongue every 5 minutes as needed for Chest Pain. COMPLEX C SR 500 MG-25 MG-25 MG TAB 2 tabs daily No current facility-administered medications for this visit. FAMILY HISTORY Problem Relation Age of Onset Hypertension Mother Stroke Mother GI Father Stroke Father Social History Tobacco Use Smoking status: Former Smokeless tobacco: Never Tobacco comments: quit 1999 Vaping Use Vaping Use: Never used Substance Use Topics Alcohol use: Yes Comment: seldom Drug use: No EXAM: BP 148/70 Pulse 60 Resp 16 Wt 68.9 kg (152 lb) SpO2 94% BMI 21.81 kg/m? PHYSICAL EXAM: Physical Exam Vitals reviewed. Constitutional: Appearance: Normal appearance. HENT: Head: Normocephalic. Cardiovascular: Rate and Rhythm: Normal rate and regular rhythm. Pulses: Normal pulses. Heart sounds: Normal heart sounds. Pulmonary: Effort: Pulmonary effort is normal. Breath sounds: Normal breath sounds. Abdominal: General: There is no distension. Palpations: Abdomen is soft. Tenderness: There is abdominal tenderness. There is guarding. There is no rebound. Hernia: No hernia is present. Comments: Left side of colon with tenderness and guarding Musculoskeletal: General: Normal range of motion. Skin: General: Skin is warm and dry. Neurological: Mental Status: He is alert. Psychiatric: Mood and Affect: Mood normal. Behavior: Behavior normal. LABS: ASSESSMENT/PLAN: 1. Left sided abdominal pain - ICD9: 789.09, ICD10: R10.9 Differential Diagnosis includes PUD, Gastritis, and Diverticulitis - Check labs for H Pylori, CBC, CMP, amylase and lipase - Pantoprazole 40 mg daily - Start flagyl and Cipro for 5 days - Recheck in 1 month Brigitte Segal, SHUKRI.Pop Harden (more content not included)... Normal [facility] Comprehensive metabolic 2000 panelon 02-25-2024 Albumin [Mass/Vol] 4.4 g/dL Normal 3.9-4.9 [facility] Comment on above: Order Comment: Speci men Type: BLOOD SPECIMENOrdering Facility: [facility] Address: [address] [place] [address] Performed By: #### 3 040-3, 1798-8, 50596-6 ####[facility] LABCLIA [id number] [place] [address] [place] ALP [Catalytic activity/Vol] 57 U/L Normal 38-113 [facility] Comment on above: Order Comment: Speci men Type: BLOOD SPECIMENOrdering Facility: [facility] Address: [address] [place] [address] Performed By: #### 3 040-3, 1798-02, ####[facility] LABCLIA [id number] [address] [address] [place] ALT [Catalytic activity/Vol] 24 U/L Normal 10-54 [facility] Comment on above: Order Comment: Speci men Type: BLOOD SPECIMENOrdering Facility: [facility] Address: [address] [place] [address] Performed By: #### 3 040-3, 1798-02, ####[facility] LABCLIA [id number] [place] [address] [place] Anion gap [Moles/Vol] 12 mmol/L Normal 8-15 [facility] Comment on above: Order Comment: Speci men Type: BLOOD SPECIMENOrdering Facility: [facility] Address: [address] [place] [address] Performed By: #### 3 040-3, 1798-02, ####[facility] LABCLIA [id number] [place] [address] [place] AST [Catalytic activity/Vol] 28 U/L Normal 14-40 [facility] Comment on above: Order Comment: Speci men Type: BLOOD SPECIMENOrdering Facility: [facility] Address: [address] [place], [place] [address] Performed By: #### 3 040-3, 1798-02, ####[facility] LABCLIA [id number] [address] [address] [place] Bilirubin [Mass/Vol] 1.1 mg/dL Normal 0.2-1.3 [facility] Comment on above: Order Comment: Speci men Type: BLOOD SPECIMENOrdering Facility: [facility] Address: [address] [place], [place] [address] Performed By: #### 3 040-3, 1798-02, ####[facility] LABCLIA [id number] [address] [address] [place] Calcium [Mass/Vol] 9.7 mg/dL Normal 8.5-10.2 [facility] Comment on above: Order Comment: Speci men Type: BLOOD SPECIMENOrdering Facility: [facility] Address: [address] [place] [address] Performed By: #### 3 040-3, 1798-02, ####[facility] LABCLIA [id number] [place] [id number] [place] Chloride [Moles/Vol] 103 mmol/L Normal 98-107 [facility] Comment on above: Order Comment: Speci men Type: BLOOD SPECIMENOrdering Facility: [facility] Address: [address] [place] [address] Performed By: #### 3 040-3, 1798-02, ####[facility] LABCLIA [id number] [place] [address] [place] CO2 [Moles/Vol] 24 mmol/L Normal 22-30 [facility] Comment on above: Order Comment: Speci men Type: BLOOD SPECIMENOrdering Facility: [facility] Address: [address] [place] [address] Performed By: #### 3 040-3, 1798-02, ####[facility] LABCLIA [id number] [place] [id number] [place] Creatinine [Mass/Vol] 0.90 mg/dL Normal 0.73-1.22 [facility] Comment on above: Order Comment: Speci men Type: BLOOD SPECIMENOrdering Facility: [facility] Address: [address] [place] [address] Performed By: #### 3 040-3, 1798-02, ####[facility] LABCLIA [id number] [place] [id number] [place] Creatinine and Glomerular filtration rate.predicted panel (S/P/Bld) 83 mL/min/1.73m??? Normal >=60 [facility] Comment on above: Order Comment: Kailey simons Type: BLOOD SPECIMENOrdering Facility: [facility] Address: [address] [place] [address] Result Comment: Louann mated Glomerular Filtration Rate (eGFR) is calculated using the 2020 CKD-EPI creatinine equation. This equation utilizes serum creatinine, sex, and age as parameters. The creatinine assay has traceable calibration to isotope dilution-mass spectrometry. Refer to KDIGO guidelines for clinical interpretation. In patients with unstable renal function, e.g. those with acute kidney injury, the eGFR may not accurately reflect actual GFR. Performed By: #### 3 040-3, 1798-02, ####[facility] LABCLIA [id number] [place] [address] [place] Glucose [Mass/Vol] 89 mg/dL Normal 74-99 [facility] Comment on above: Order Comment: Kailey simons Type: BLOOD SPECIMENOrdering Facility: [facility] Address: [address] [place] [address] Result Comment: The [place] Diabetes Association (ADA) provides guidance for cutoff values for fasting glucose and random glucose. The ADA defines fasting as no caloric intake for at least 8 hours. Fasting plasma glucose results between 100 to 125 mg/dL indicate increased risk for diabetes (prediabetes). Fasting plasma glucose results greater than or equal to 126 mg/dL meet the criteria for diagnosis of diabetes. In the absence of unequivocal hyperglycemia, results should be confirmed by repeat testing. In a patient with classic symptoms of hyperglycemia or hyperglycemic crisis, random plasma glucose results greater than or equal to 200 mg/dL meet the criteria for diagnosis of diabetes. Reference: Standards of Medical Care in Diabetes 2016, [place] Diabetes Association. Diabetes Care. 2016.39(Suppl 1). Performed By: #### 3 040-3, 1798-02, ####[facility] LABIA [id number] [place] [id number] [place] Potassium [Moles/Vol] 4.4 mmol/L Normal 3.7-5.1 [facility] Comment on above: Order Comment: Speci men Type: BLOOD SPECIMENOrdering Facility: [facility] Address: [address] [place] [address] Performed By: #### 3 040-3, 1798-02, ####[facility] LABCLIA [id number] [place] [address] [place] Protein [Mass/Vol] 6.1 g/dL Low 6.3-8.0 [facility] Comment on above: Order Comment: Speci men Type: BLOOD SPECIMENOrdering Facility: [facility] Address: [address] [place] [address] Performed By: #### 3 040-3, 1798-02, ####[facility] LABCLIA [id number] [place] [address] [place] Sodium [Moles/Vol] 139 mmol/L Normal 136-144 [facility] Comment on above: Order Comment: Speci men Type: BLOOD SPECIMENOrdering Facility: [facility] Address: [address] [place] [address] Performed By: #### 3 040-3, 1798-02, ####[facility] LABCLIA [id number] [place] [address] [place] Urea nitrogen [Mass/Vol] 15 mg/dL Normal 9-24 [facility] Comment on above: Order Comment: Speci men Type: BLOOD SPECIMENOrdering Facility: [facility] Address: [address] [place] [address] Performed By: #### 3 040-3, 1798-02, ####[facility] LABCLIA [id number] [address] [address] [place] H. pylori IgG IA Qlon 2023 H. PYLORI IGG, QUAL Negative Normal Negative [facility] Comment on above: Order Comment: Kailey kristyn Type: BLOOD SPECIMENOrdering Facility: [facility] Address: [address] [place] [address] Result Comment: To ot exclude H. pylori infection if the specimen collected 3-4 weeks after onset of symptoms. Performed By: #### 1 7859-0 ####[facility] LABCLIA [id number] [place] [address] [place] Lipase SerPl-cCncon 02-25-20 24 Lipase [Catalytic activity/Vol] 41 U/L Normal 16-61 [facility] Comment on above: Order Comment: Georgehakan simons Type: BLOOD SPECIMENOrdering Facility: [facility] Address: [address] [place] [address] Performed By: #### 3 040-3, 1798-8, 57301-0 ####[facility] LABCLIA [id number] [address] [place] Cardiology Visit Reporton Cardiology Visit Report [facility] [address] [place], [place] [address] OFFICE VISIT Date of Service: 02/19/24 MR#: [id number] Acct: [id number] Name: CLARK LYLES Rep #: [id number] : 1935 Provider: CHRISTINE Valdez Age/Sex: 88/M Location: [facility] Status: Signed HPI HPI History of Present Illness Details: Clark Lyles is an 88-year-old gentleman with a previous history of hypertension, peripheral vascular disease status post lower extremity stenting who had presented with intermittent chest discomfort and underwent a stress test noted below. He exercised 10.[address] depression noted and had an abnormal perfusion study with evidence of distal anterior ischemia at a high workload. He underwent a heart catheterization on 09/08/2019 that showed severe single-vessel disease involving a calcified mid left anterior descending artery. He underwent PTCA/JAM to mid LAD. He is having issues sleeping at night and does not have an appetite. He has lost 7 lbs. He is working on this with his PCP. He also has epigastric pain. This is almost constant. Daughter is concerned that this is cardiac. He does have shortness of breath with exertion. He denies any PND. He does not have any orthopnea. He does not have any symptoms of congestive heart failure. He does not have any palpitations that he is aware of. He does not have any lightheadedness or dizziness. He does not have any near-syncope or syncope. He does not have any lower extremity edema. He does not have any symptoms of claudication. Intake Vital Signs 08/02/23 13:52 02/09/24 09:41 02/19/24 11:07 Height 5 ft 10 in 5 ft 10 in 5 ft 10 in Weight: 151 lb BMI 21.7 BP 93/50 L Blood Pressure Location Lt brachial Position Sitting Respiration 18 Pulse 63 Pulse Source Monitor Pulse Oximetry (%) 94 Oxygen Delivery Method room air Intake Visit Reasons: O/D for FU Musical Therapist Required: No Accompanied by: Daughter Is patient in pain?: No Allergies Sulfa (Sulfonamide Antibiotics) Allergy (Verified 02/19/24 11:13) Rash lisinopril Adverse Reaction (Verified 02/19/24 11:13) Other Medications ???Medication ???Instructions ???Recorded ???Confirmed ???Type citalopram 20 mg tablet 20 mg PO DAILY DEPRESSION 03/17/14 02/19/24 History multivitamin 1 ea PO DAILY HEALTH MINENANCE 05/16/17 02/19/24 History tamsulosin 0.4 mg capsule 0.4 mg PO DAILY PROSTATE 09/04/19 02/19/24 History ascorbic acid (vitamin C) 1,000 mg 1,000 mg PO DAILY SUPPLEMENT 01/18/20 02/19/24 History tablet atorvastatin 10 mg tablet 10 mg PO DAILY CHOLESTEROL 08/25/20 02/19/24 History clopidogrel 75 mg tablet 75 mg PO DAILY BLOOD THINNER 08/25/20 08/01/23 History finasteride 5 mg tablet 5 mg PO DAILY PROSTATE 08/26/20 02/19/24 History hydrochlorothiazide 25 mg tablet 25 mg PO DAILY BLOOD PRESSURE #90 09/20/20 02/19/24 Rx tabs latanoprost 0.005 % eye drops 1 drp ophthalmic (eye) QHS GLAUCOMA 08/01/23 02/19/24 History metoprolol succinate 25 mg 25 mg PO DAILY BLOOD PRESSURE 08/01/23 02/19/24 History tablet,extended release 24 hr omeprazole 40 mg capsule,delayed 40 mg PO DAILY ACID REFLUX 08/01/23 02/19/24 History release trazodone 50 mg tablet 50 mg PO QHS SLEEP 08/01/23 02/19/24 History Lactobacillus acidophilus 1 1,000 mmu cells PO DAILY #30 caps 08/04/23 02/19/24 Rx billion cell capsule amlodipine 10 mg tablet 5 mg PO DAILY BLOOD PESSURE 02/19/24 02/19/24 History buspirone 10 mg tablet 10 mg PO TID 02/19/24 02/19/24 History Ejection fraction %: 60 Have you fallen in the past year?: No [facility] Medical History COVID-19 virus detected (08/23/20) Anxiety and depression Chronic anemia Acute respiratory failure with hypoxia Hypoxia Pneumonia due to COVID-19 virus GI bleed (12/2019) Atherosclerosis of coronary artery of [place] heart without angina pectoris Peripheral vascular occlusive disease Hyperlipidemia Essential (primary) hypertension GERD (gastroesophageal reflux disease) BPH (benign prostatic hyperplasia) Anxiety Incontinence Diverticulosis Surgical History History of colonoscopy (12/2019) History of coronary artery stent placement (09/08/19) History of angioplasty of peripheral vessel (08/2017) History of herniorrhaphy History of esophagogastroduodenoscopy (EGD) (12/2019) Family History Father CVA (cerebral vascular accident) Mother CVA (cerebral vascular accident) Hypertension Social History Smoking Status: Former smoker ROS Const Const: Positive fo (more content not included)... Normal [facility] 12 Lead EKGon 02-09-2024 12 Lead EKG [facility] [address] [place] [address] 12 Lead EKG 02/09/24 0952 MR#: [id number] Acct: [id number] Name: CLARK LYLES Rep #: [id number] : 1935 88 From: Farrah Ruvalcaba MD Attending Dr: Status: DEP ER Ordering Dr: Tamra Ivey MD Date: 02/09/24 Location: ED Sex: M C Admitted: Test Reason : SOB Blood Pressure : / mmHG Vent. Rate : 062 BPM Atrial Rate : 062 BPM P-R Int : 136 ms QRS Dur : 098 ms QT Int : 442 ms P-R-T Axes : 032 -06 008 degrees QTc Int : 448 ms Normal sinus rhythm Normal ECG Confirmed by RITA MANUEL, YUAN ([id number]), editor magazine FARSHAD PANDYA ([id number]) on 02/13/2024 9:44:33 AM Referred By: AR Confirmed By:ABEL RUVALCABA MD 02/13/24 0944 Date Farrah Ruvalcaba MD CC: Dr. Tamra Ivey MD; CHRISTINE Brown Signed Normal [facility] BNP,B-Type NATRIURETIC PEPTI Giovanni 02-09-2024 Natriuretic peptide B (Bld) [Mass/Vol] 180.0 pg/mL High 0-100 [facility] Comment on above: Performed By: #### L 100.0100, L300.8000, L503.6620, L500.2500, L501.4020 ####[facility] [address] [place], [address] Basic Metabolic Profile (BMP )on 02-09-2024 BUN/CRE 13.1 RATIO Normal 10-20 [facility] Comment on above: Order Comment: 'TROP ' Serial specimen #1, #2 or #3: 1 Performed By: #### L 100.0100, L300.8000, L503.6620, L500.2500, L501.4020 ####[facility] [address] [place], [address] CA,Total 9.0 mg/dL Normal 8.5-10.1 [facility] Comment on above: Order Comment: 'TROP ' Serial specimen #1, #2 or #3: 1 Performed By: #### L 100.0100, L300.8000, L503.6620, L500.2500, L501.4020 ####[facility] [address] [place], [address] Chloride [Moles/Vol] 105 mmol/L Normal 98-107 [facility] Comment on above: Order Comment: 'TROP ' Serial specimen #1, #2 or #3: 1 Performed By: #### L 100.0100, L300.8000, L503.6620, L500.2500, L501.4020 ####[facility] [address] [place], [address] CO2 [Moles/Vol] 24.0 mmol/L Normal 21.0-32.0 [facility] Comment on above: Order Comment: 'TROP ' Serial specimen #1, #2 or #3: 1 Performed By: #### L 100.0100, L300.8000, L503.6620, L500.2500, L501.4020 ####[facility] [address] [place], [address] Creatinine [Mass/Vol] 0.92 mg/dL Normal 0.70-1.30 [facility] Comment on above: Order Comment: 'TROP ' Serial specimen #1, #2 or #3: 1 Result Comment: The validity of the calculated GFR GFRAA in patients over 70 years has not been determined. Clinical correlation is essential. Performed By: #### L 100.0100, L300.8000, L503.6620, L500.2500, L501.4020 ####[facility] [address] [place], [address] ECRCL 58.61 ml/min Normal [facility] Comment on above: Order Comment: 'TROP ' Serial specimen #1, #2 or #3: 1 Performed By: #### L 100.0100, L300.8000, L503.6620, L500.2500, L501.4020 ####[facility] [address] [place], [address] EST GFR - AA 100 mL/min Normal >60 [facility] Comment on above: Order Comment: 'TROP ' Serial specimen #1, #2 or #3: 1 Result Comment: Afri can Argentine GFR Calc Performed By: #### L 100.0100, L300.8000, L503.6620, L500.2500, L501.4020 ####[facility] [address] [place], [address] GAP 7 Normal 5-15 [facility] Comment on above: Order Comment: 'TROP ' Serial specimen #1, #2 or #3: 1 Performed By: #### L 100.0100, L300.8000, L503.6620, L500.2500, L501.4020 ####[facility] [address] [place], [address] GFR/1.73 sq M.predicted among non-blacks MDRD (S/P/Bld) [Vol rate/Area] 83 mL/min/{1.73_m2} Normal >60 [facility] Comment on above: Order Comment: 'TROP ' Serial specimen #1, #2 or #3: 1 Result Comment: Non- GFR Calc Performed By: #### L 100.0100, L300.8000, L503.6620, L500.2500, L501.4020 ####[facility] [address] [place], [address] Glucose [Mass/Vol] 115 mg/dL High 74-106 [facility] Comment on above: Order Comment: 'TROP ' Serial specimen #1, #2 or #3: 1 Result Comment: Fast ing Glucose result from 100 to 125 mg/dL suggests IMPAIRED HOMEOSTASIS per A.D.A. criteria. Performed By: #### L 100.0100, L300.8000, L503.6620, L500.2500, L501.4020 ####[facility] [address] [place], [address] Potassium [Moles/Vol] 3.6 mmol/L Normal 3.5-5.1 [facility] Comment on above: Order Comment: 'TROP ' Serial specimen #1, #2 or #3: 1 Performed By: #### L 100.0100, L300.8000, L503.6620, L500.2500, L501.4020 ####[facility] [address] [place], [address] Sodium [Moles/Vol] 136 mmol/L Normal 136-145 [facility] Comment on above: Order Comment: 'TROP ' Serial specimen #1, #2 or #3: 1 Performed By: #### L 100.0100, L300.8000, L503.6620, L500.2500, L501.4020 ####[facility] [address] [place], [address] Urea nitrogen [Mass/Vol] 12 mg/dL Normal 7-18 [facility] Comment on above: Order Comment: 'TROP ' Serial specimen #1, #2 or #3: 1 Performed By: #### L 100.0100, L300.8000, L503.6620, L500.2500, L501.4020 ####[facility] [address] [place], [address] CBC W/Diff, Automatedon 07- Absolute Lymph 0.49 X10 3/uL Low 0.83-4.51 [facility] Comment on above: Performed By: #### L 100.0100, L300.8000, L503.6620, L500.2500, L501.4020 ####[facility] [address] [place], [address] Absolute Neut 7.0 X10 3/uL Normal 2.0-7.7 [facility] Comment on above: Performed By: #### L 100.0100, L300.8000, L503.6620, L500.2500, L501.4020 ####[facility] [address] [place], [address] Basophils/100 WBC (Bld) 0.2 % Normal 0-1 [facility] Comment on above: Performed By: #### L 100.0100, L300.8000, L503.6620, L500.2500, L501.4020 ####[facility] [address] [place], [address] Eosinophils/100 WBC (Bld) 1.4 % Normal 0-5 [facility] Comment on above: Performed By: #### L 100.0100, L300.8000, L503.6620, L500.2500, L501.4020 ####[facility] [address] [place], [address] Erythrocyte distribution width (RBC) [Ratio] 15.9 % High 11.6-14.6 [facility] Comment on above: Performed By: #### L 100.0100, L300.8000, L503.6620, L500.2500, L501.4020 ####[facility] [address] [place], [address] Hematocrit (Bld) [Volume fraction] 46.2 % Normal 40-54 [facility] Comment on above: Performed By: #### L 100.0100, L300.8000, L503.6620, L500.2500, L501.4020 ####[facility] [address] [place], [address] Hemoglobin (Bld) [Mass/Vol] 15.6 g/dL Normal 13.0-16.5 [facility] Comment on above: Performed By: #### L 100.0100, L300.8000, L503.6620, L500.2500, L501.4020 ####[facility] [address] [place], [address] IG% 1.000 High 0.0-0.9 [facility] Comment on above: Result Comment: IG% - Immature Granulocytes (promyelocytes, myelocytes and metamyelocytes) > 1% indicates that a LEFT SHIFT is Present. Performed By: #### L 100.0100, L300.8000, L503.6620, L500.2500, L501.4020 ####[facility] [address] [place], [address] Lymphocytes/100 WBC (Bld) 5.8 % Low 19-41 [facility] Comment on above: Performed By: #### L 100.0100, L300.8000, L503.6620, L500.2500, L501.4020 ####[facility] [address] [place], [address] MCH (RBC) [Entitic mass] 30.8 pg Normal 27.0-32.0 [facility] Comment on above: Performed By: #### L 100.0100, L300.8000, L503.6620, L500.2500, L501.4020 ####[facility] [address] [place], [address] MCHC (RBC) [Mass/Vol] 33.8 g/dL Normal 32-36 [facility] Comment on above: Performed By: #### L 100.0100, L300.8000, L503.6620, L500.2500, L501.4020 ####[facility] [address] [place], [address] MCV (RBC) [Entitic vol] 91.1 fL Normal 80-94 [facility] Comment on above: Performed By: #### L 100.0100, L300.8000, L503.6620, L500.2500, L501.4020 ####[facility] [address] [place], [address] Monocytes/100 WBC (Bld) 8.1 % Normal 0-10 [facility] Comment on above: Performed By: #### L 100.0100, L300.8000, L503.6620, L500.2500, L501.4020 ####[facility] [address] [place], [address] Neutrophils/100 WBC (Bld) 83.5 % High 47-70 [facility] Comment on above: Performed By: #### L 100.0100, L300.8000, L503.6620, L500.2500, L501.4020 ####[facility] [address] [place], [address] Nucleated RBC (Bld) [#/Vol] 0 10*3/uL Normal 0-5 [facility] Comment on above: Performed By: #### L 100.0100, L300.8000, L503.6620, L500.2500, L501.4020 ####[facility] [address] [place], [address] Platelet mean volume (Bld) [Entitic vol] 10.8 fL Normal 6.2-12.0 [facility] Comment on above: Performed By: #### L 100.0100, L300.8000, L503.6620, L500.2500, L501.4020 ####[facility] [address] [place], [address] Platelets (Bld) [#/Vol] 264 10*3/uL Normal 150-450 [facility] Comment on above: Performed By: #### L 100.0100, L300.8000, L503.6620, L500.2500, L501.4020 ####[facility] [address] [place], [address] RBC (Bld) [#/Vol] 5.07 10*6/uL Normal 4.6-6.2 [facility] Comment on above: Performed By: #### L 100.0100, L300.8000, L503.6620, L500.2500, L501.4020 ####[facility] [address] [place], [address] RDW SD 53.1 fl High 35.1-43.9 [facility] Comment on above: Performed By: #### L 100.0100, L300.8000, L503.6620, L500.2500, L501.4020 ####[facility] [address] [place], [address] WBC (Bld) [#/Vol] 8.4 10*3/uL Normal 4.4-11.0 [facility] Comment on above: Performed By: #### L 100.0100, L300.8000, L503.6620, L500.2500, L501.4020 ####[facility] [address] [place], [address] Chest PA and Lateralon 02-08 Chest PA and Lateral [facility] Imaging Services [address] [place] [address] Chest PA and Lateral MR#: [id number] Acct: [id number] Name: TRUPTICLARK LAMA Rep #: [id number] : 1935 M 88 From: Yana Sampson MD PCP: CHRISTINE Brown Status: [facility] ER Study: Chest PA and Lateral Date of Exam: 02/09/24 Exam# [id number] Ordering Dr: Tamra Ivey MD [id number] INDICATION: Shortness of breath EXAMINATION/TECHNIQUE: X-RAY - XR Chest 2 Views COMPARISON: August 01, 2023 FINDINGS: LINES/DEVICES: None. LUNGS: No new consolidation, edema or effusion. There are stable bilateral prominent chronic appearing interstitial markings. No pneumothorax. MEDIASTINUM AND CARDIOVASCULAR STRUCTURES: Cardiac silhouette not enlarged. Central airways and mediastinal contour are unremarkable. BONES AND SOFT TISSUES: There is a stable metallic density projecting over the right hemithorax. RAD/Chest PA and Lateral IMPRESSION: No radiographic evidence of acute cardiopulmonary disease. Electronically Signed: Yana Sampson MD at 11:25 EDT , CC: Dr. Tamra Ivey MD; CHRISTINE Brown Fermentation Engineer: Signed Normal [facility] D-Dimer Quantitative (DVT/PE )on 02-09-2024 D-DIMER QUANT 0.34 FEU/ug/m Normal 0.27-0.49 [facility] Comment on above: Result Comment: NORM AL D-Dimer level (<0.50) indicates no DVT or PE. Performed By: #### L 100.0100, L300.8000, L503.6620, L500.2500, L501.4020 ####[facility] [address] [facility] [place], [address] Emergency Department Summary on 02-09-2024 Emergency Department Summary [facility] Medical Records Department [address] [place] [address] Emergency Department Summary 02/09/24 MR#: [id number] Acct: [id number] Name: CLARK LYLES Rep #: [id number] : 1935 88 From: Tamra Ivey MD PCP: CHRISTINE Brown Status:DEP ER Location: ED HPI History of Present Illness Chief Complaint: Shortness of Breath Informant: patient Narrative Narrative: Patient presents secondary to shortness of breath and weakness. Patient states symptoms have been ongoing for quite some time but he felt significant more short of breath this morning. He denies lightheadedness or dizziness. He denies vertigo. He denies chest pain or palpitations. He has not had cough or congestion. He does not feel as if he is wheezing. He denies nausea, vomiting, or diarrhea. He does have 1 cardiac stent as well as 2 vascular stents to his legs. He denies history of CHF. He has not noted peripheral swelling. [facility] Medical History COVID-19 virus detected (08/23/20) Anxiety and depression Chronic anemia Acute respiratory failure with hypoxia Hypoxia Pneumonia due to COVID-19 virus GI bleed (12/2019) Atherosclerosis of coronary artery of [place] heart without angina pectoris Peripheral vascular occlusive disease Hyperlipidemia Essential (primary) hypertension GERD (gastroesophageal reflux disease) BPH (benign prostatic hyperplasia) Anxiety Incontinence Diverticulosis Home Medications ???Medication ???Instructions ???Recorded ???Last Taken ???Type citalopram 20 mg tablet 20 mg PO DAILY DEPRESSION 03/17/14 08/01/23 History multivitamin 1 ea PO DAILY HEALTH MINENANCE 05/16/17 08/01/23 History amlodipine 10 mg tablet 10 mg PO DAILY BLOOD PESSURE 09/04/19 08/01/23 History tamsulosin 0.4 mg capsule 0.4 mg PO DAILY PROSTATE 09/04/19 08/01/23 History niacin 500 mg capsule,extended 500 mg PO DAILY SUPPLEMENT 09/16/19 08/01/23 History release ascorbic acid (vitamin C) 1,000 mg 1,000 mg PO DAILY SUPPLEMENT 01/18/20 08/01/23 History tablet atorvastatin 10 mg tablet 10 mg PO DAILY CHOLESTEROL 08/25/20 08/01/23 History clopidogrel 75 mg tablet 75 mg PO DAILY BLOOD THINNER 08/25/20 08/01/23 History finasteride 5 mg tablet 5 mg PO DAILY PROSTATE 08/26/20 08/01/23 History hydrochlorothiazide 25 mg tablet 25 mg PO DAILY BLOOD PRESSURE #90 09/20/20 08/01/23 Rx tabs aspirin 81 mg tablet,delayed 81 mg PO DAILY HEART HEALTH 04/25/21 08/01/23 History release (Adult Aspirin Regimen) buspirone 5 mg tablet 5 mg PO TID 08/01/23 08/01/23 History hydrocodone-acetaminophen 5-325mg 1 tab PO Q6H PRN PAIN 08/01/23 Unknown History 5mg-325mg latanoprost 0.005 % eye drops 1 drp ophthalmic (eye) QHS GLAUCOMA 08/01/23 07/31/23 History metoprolol succinate 25 mg 25 mg PO DAILY BLOOD PRESSURE 08/01/23 08/01/23 History tablet,extended release 24 hr omeprazole 40 mg capsule,delayed 40 mg PO DAILY ACID REFLUX 08/01/23 08/01/23 History release trazodone 50 mg tablet 50 mg PO QHS SLEEP 08/01/23 08/01/23 History Lactobacillus acidophilus 1 1,000 mmu cells PO DAILY #30 caps 08/04/23 Unknown Rx billion cell capsule cefdinir 300 mg capsule 300 mg PO BID #10 caps 08/04/23 Unknown Rx guaifenesin 1,200 mg tablet, 1,200 mg PO BID #20 tabs 08/04/23 Unknown Rx extended release 12 hr (Mucus Relief ER) prednisone 20 mg tablet 20 mg PO BID #10 tabs 08/04/23 Unknown Rx Allergy/AdvReac Type Severity Reaction Status Date / Time Sulfa (Sulfonamide Allergy Rash Verified 02/09/24 10:00 Antibiotics) lisinopril AdvReac Other Verified 02/09/24 10:00 Family History Father CVA (cerebral vascular accident) Mother CVA (cerebral vascular accident) Hypertension Surgical History History of colonoscopy (12/2019) History of coronary artery stent placement (09/08/19) History of angioplasty of peripheral vessel (08/2017) History of herniorrhaphy History of esophagogastroduodenoscopy (EGD) (12/2019) Social History Smoking Status: Former smoker ROS ROS ED Constitutional Constitutional ED: Denies chills or fever(s) Eyes Eyes: Denies discharge from eye(s) ENT ENT ED: Denies discharge from eye(s), rhinorrhea or sore throat Cardiovascular Cardiovascular: Denies chest pain or palpitations Respiratory/Chest Respiratory/Chest: Reports dyspnea; Denies cough Gastrointestinal Gastrointestinal: Denies abdominal pain, nausea or vomiting Genitourinary Genitourinary ED: Denies dysuria Musculoskeletal Musculoskeletal: Denies back pain or extremity pain Integumentary Denies Abrasions or rash Neurologic Neurologi (more content not included)... Normal [facility] L501.4020on 02-09-2024 TROPONIN-I HS 7 pg/mL Normal 3.0-78.0 [facility] Comment on above: Order Comment: 'TROP ' Serial specimen #1, #2 or #3: 1 Result Comment: Peg jiménez Note: New Test Units and Gender Specific Reference Ranges. For more information see Policy Stat Procedure [place] High Sensitivity Troponin (TNIH) and attachments. Performed By: #### L 100.0100, L300.8000, L503.6620, L500.2500, L501.4020 ####[facility] [address] [place], [address] [facility] CLARK LYLES ([id number]) 1935 M Date Time Provider Department 12/28/23 WALTER GOMEZ [facility] During your visit today, we recorded the following information about you: Walter Gomez MD 12/28/2023 2:27 PM Signed Let him know his labs are stable. Shirley Rivera MA 01/01/2024 4:48 PM Signed Attempted to call, no answer Shirely Rivera MA 01/04/2024 3:41 PM Signed Letter mailed to patient Allergies As of Date: 12/28/2023 Noted Allergy Reaction LISINOPRIL 12/28/2009 3 - Cough SULFA (SULFONAMIDE ANTIBIOTICS) 03/09/2006 4 - Hives Date Reviewed: 12/25/2023 Reviewed by: Brigitte Cotton LPN - Fully Assessed Reason for Visit: Results [95] Prescriptions as of 01/04/2024 - tamsulosin (FLOMAX) 0.4 mg Take 2 capsules by mouth once daily. - metoprolol succinate ER (TOPROL XL) 25 mg 24 hr tablet Take 1 tablet by mouth once daily. - busPIRone (BUSPAR) 10 mg tablet Take 1 tablet by mouth three times a day. - traZODone (DESYREL) 50 mg tablet Take 1 tablet by mouth daily at bedtime. - Lactobacillus acidophilus (PROBIOTIC ACIDOPHILUS ORAL) Take by mouth. - hydroCHLOROthiazide 25 mg tablet Take 0.5 tablets by mouth once daily. - amLODIPine (NORVASC) 10 mg tablet Take 1 tablet by mouth once daily. - finasteride (PROSCAR) 5 mg tablet Take 1 tablet by mouth once daily. - atorvastatin (LIPITOR) 10 mg tablet Take 1 tablet by mouth once daily. - citalopram (CELEXA) 20 mg tablet Take 1 tablet by mouth once daily. - omeprazole (PRILOSEC) 40 mg capsule Take 1 capsule by mouth once daily. - clopidogrel (PLAVIX) 75 mg tablet Take 1 tablet by mouth once daily. - nitroglycerin sublingual (NITROQUICK) 0.4 mg SL tablet Dissolve 1 tablet under the tongue every 5 minutes as needed for Chest Pain. - MULTIVITAMIN (MULTIPLE VITAMINS ORAL) Take by mouth once daily. - ASPIRIN 81 MG TAB Take one(1) tablet daily. - COMPLEX C SR 500 MG-25 MG-25 MG TAB 2 tabs daily Meds Comments as of 04/18/2021: Taking [employer]. Problem List As Of Date 12/28/2023 Noted Resolved BENIGN HYPERTENSION [I10] 01/08/2006 Anxiety state [F41.1] 01/05/2009 GERD (gastroesophageal reflux disease) [K21.9] 01/10/2011 BPH (benign prostatic hyperplasia) [N40.0] 03/17/2013 PAD (peripheral artery disease) ([facility]) [I73.9] 02/28/2014 Hyperlipidemia LDL goal <100 [E78.5] 03/28/2016 Hyperbilirubinemia [E80.6] 05/10/2016 Parkinson's disease (HCC) [G20.A1] 07/11/2017 Angina pectoris (HCC) [I20.9] 08/25/2019 Restless legs syndrome [G25.81] 01/27/2020 Iron deficiency anemia due to chronic blood los*01/27/2020 Coronary artery disease involving [place] rabago*12/22/2020 S/P primary angioplasty with coronary stent [Z9*12/22/2020 Fall from standing [W19.XXXA] 09/20/2021 Encounter for support and coordination of trans*08/11/2023 Acute respiratory failure with hypoxia (HCC) [J*09/25/2023 Letter Text Encounter Status:Closed by SHIRLEY RIVERA on 01/04/24 Normal [facility] CBC W Auto Differential pane l (Bld)on 12-27-2023 Basophils (Bld) [#/Vol] 0.04 10*3/uL Normal <0.11 [facility] Comment on above: Order Comment: Speci men Type: BLOOD SPECIMENOrdering Facility: [facility] Address: [address] [place] [address] Performed By: #### 5 7021-8 ####[facility] LABCLIA [id number] [place] [address] [place] Basophils/100 WBC (Bld) 0.5 % Normal [facility] Comment on above: Order Comment: Speci men Type: BLOOD SPECIMENOrdering Facility: [facility] Address: [address] [place] [address] Performed By: #### 5 7021-8 ####[facility] LABCLIA [id number] [place] [address] [place] Differential cell count method Nom (Bld) Auto Normal [facility] Comment on above: Order Comment: Speci men Type: BLOOD SPECIMENOrdering Facility: [facility] Address: [address] [place] [address] Performed By: #### 5 7021-8 ####[facility] LABCLIA [id number] [place] [address] [place] Eosinophils (Bld) [#/Vol] 0.36 10*3/uL Normal <0.46 [facility] Comment on above: Order Comment: Speci men Type: BLOOD SPECIMENOrdering Facility: [facility] Address: [address] [place] [address] Performed By: #### 5 7021-8 ####[facility] LABIA [id number] [place] [address] [place] Eosinophils/100 WBC (Bld) 4.5 % Normal [facility] Comment on above: Order Comment: Speci men Type: BLOOD SPECIMENOrdering Facility: [facility] Address: [address] [place] [address] Performed By: #### 5 7021-8 ####[facility] LABIA [id number] [place] [address] [place] Erythrocyte distribution width (RBC) [Ratio] 16.4 % High 11.5-15.0 [facility] Comment on above: Order Comment: Speci men Type: BLOOD SPECIMENOrdering Facility: [facility] Address: [address] [place] [address] Performed By: #### 5 7021-8 ####[facility] LABIA [id number] [place] [address] [place] Hematocrit (Bld) [Volume fraction] 47.6 % Normal 39.0-51.0 [facility] Comment on above: Order Comment: Speci men Type: BLOOD SPECIMENOrdering Facility: [facility] Address: [address] [place] [address] Performed By: #### 5 7021-8 ####[facility] LABIA [id number] [place] [address] [place] Hemoglobin (Bld) [Mass/Vol] 15.7 g/dL Normal 13.0-17.0 [facility] [facility] Comment on above: Order Comment: Speci men Type: BLOOD SPECIMENOrdering Facility: [facility] Address: [address] [place] [address] Performed By: #### 5 7021-8 ####[facility] LABCLIA [id number] [place] [address] [place] Immature granulocytes (Bld) [#/Vol] 0.07 10*3/uL Normal <0.10 [facility] Comment on above: Order Comment: Speci men Type: BLOOD SPECIMENOrdering Facility: [facility] Address: [address] [place] [address] Performed By: #### 5 7021-8 ####[facility] LABCLIA [id number] [place] [address] [place] Immature granulocytes/100 WBC (Bld) 0.9 % Normal [facility] Comment on above: Order Comment: Speci men Type: BLOOD SPECIMENOrdering Facility: [facility] Address: [address] [place] [address] Performed By: #### 5 7021-8 ####[facility] LABIA [id number] [place] [address] [place] Lymphocytes (Bld) [#/Vol] 0.72 10*3/uL Low 1.00-4.00 [facility] Comment on above: Order Comment: Speci men Type: BLOOD SPECIMENOrdering Facility: [facility] Address: [address] [place] [address] Performed By: #### 5 7021-8 ####[facility] LABIA [id number] [place] [address] [place] Lymphocytes/100 WBC (Bld) 8.9 % Normal [facility] Comment on above: Order Comment: Speci men Type: BLOOD SPECIMENOrdering Facility: [facility] Address: [address] [place] [address] Performed By: #### 5 7021-8 ####[facility] LABIA [id number] [place] [address] [place] MCH (RBC) [Entitic mass] 30.5 pg Normal 26.0-34.0 [facility] Comment on above: Order Comment: Speci men Type: BLOOD SPECIMENOrdering Facility: [facility] Address: [address] [place] [address] Performed By: #### 5 7021-8 ####[facility] LABCLIA [id number] [place] [address] [place] MCHC (RBC) [Mass/Vol] 33.0 g/dL Normal 30.5-36.0 [facility] Comment on above: Order Comment: Speci men Type: BLOOD SPECIMENOrdering Facility: [facility] Address: [address] [place] [address] Performed By: #### 5 7021-8 ####[facility] LABIA [id number] [place] [address] [place] MCV (RBC) [Entitic vol] 92.6 fL Normal 80.0-100.0 [facility] Comment on above: Order Comment: Speci men Type: BLOOD SPECIMENOrdering Facility: [facility] Address: [address] [place] [address] Performed By: #### 5 7021-8 ####[facility] LABIA [id number] [place] [address] [place] Monocytes (Bld) [#/Vol] 0.84 10*3/uL Normal <0.87 [facility] Comment on above: Order Comment: Speci men Type: BLOOD SPECIMENOrdering Facility: [facility] Address: [address] [place] [address] Performed By: #### 5 7021-8 ####[facility] LABIA [id number] [place] [address] [place] Monocytes/100 WBC (Bld) 10.4 % Normal [facility] Comment on above: Order Comment: Speci men Type: BLOOD SPECIMENOrdering Facility: [facility] Address: [address] [place] [address] Performed By: #### 5 7021-8 ####[facility] LABCLIA [id number] [place] [address] [place] Neutrophils (Bld) [#/Vol] 6.02 10*3/uL Normal 1.45-7.50 [facility] Comment on above: Order Comment: Speci men Type: BLOOD SPECIMENOrdering Facility: [facility] Address: [address] [place] [address] Performed By: #### 5 7021-8 ####[facility] LABCLIA [id number] [place] [address] [place] Neutrophils/100 WBC (Bld) 74.8 % Normal [facility] Comment on above: Order Comment: Speci men Type: BLOOD SPECIMENOrdering Facility: [facility] Address: [address] [place] [address] Performed By: #### 5 7021-8 ####[facility] LABCLIA [id number] [place] [address] [place] Nucleated RBC (Bld) [#/Vol] 10*3/uL Normal <0.01 [facility] Comment on above: Order Comment: Speci men Type: BLOOD SPECIMENOrdering Facility: [facility] Address: [address] [place] [address] Performed By: #### 5 7021-8 ####[facility] LABCLIA [id number] [place] [address] [place] Nucleated RBC/100 WBC (Bld) [Ratio] 0.0 /100 WBC Normal [facility] Comment on above: Order Comment: Speci men Type: BLOOD SPECIMENOrdering Facility: [facility] Address: [address] [place] [address] Performed By: #### 5 7021-8 ####[facility] LABCLIA [id number] [place] [address] [place] Platelet mean volume (Bld) [Entitic vol] 11.6 fL Normal 9.0-12.7 [facility] Comment on above: Order Comment: Speci men Type: BLOOD SPECIMENOrdering Facility: [facility] Address: [address] [place] [address] Performed By: #### 5 7021-8 ####[facility] LABCLIA [id number] [place] [address] [place] Platelets (Bld) [#/Vol] 209 10*3/uL Normal 150-400 [facility] Comment on above: Order Comment: Speci men Type: BLOOD SPECIMENOrdering Facility: [facility] Address: [address] [place] [address] Performed By: #### 5 7021-8 ####[facility] LABCLIA [id number] [place] [address] [place] RBC (Bld) [#/Vol] 5.14 10*6/uL Normal 4.20-6.00 [facility] Comment on above: Order Comment: Speci men Type: BLOOD SPECIMENOrdering Facility: [facility] Address: [address] [place] [address] Performed By: #### 5 7021-8 ####[facility] LABCLIA [id number] [place] [address] [place] WBC (Bld) [#/Vol] 8.05 10*3/uL Normal 3.70-11.00 [facility] Comment on above: Order Comment: Speci men Type: BLOOD SPECIMENOrdering Facility: [facility] Address: [address] [place] [address] Performed By: #### 5 7021-8 ####[facility] LABCLIA [id number] [place] [address] [place] Comprehensive metabolic 2000 panelon 12-27-2023 Albumin [Mass/Vol] 4.3 g/dL Normal 3.9-4.9 [facility] Comment on above: Order Comment: Speci men Type: BLOOD SPECIMENOrdering Facility: [facility] Address: [address] [place] [address] Performed By: #### 2 4323-8, , ####[facility] LABCLIA [id number] [place] [address] [place] ALP [Catalytic activity/Vol] 57 U/L Normal 38-113 [facility] Comment on above: Order Comment: Speci men Type: BLOOD SPECIMENOrdering Facility: [facility] Address: [address] [place] [address] Performed By: #### 2 4323-8, , ####[facility] LABCLIA [id number] [place] [address] [place] ALT [Catalytic activity/Vol] 15 U/L Normal 10-54 [facility] Comment on above: Order Comment: Speci men Type: BLOOD SPECIMENOrdering Facility: [facility] Address: [address] [place] [address] Performed By: #### 2 4323-8, , ####[facility] LABIA [id number] [place] [address] [place] Anion gap [Moles/Vol] 13 mmol/L Normal 9-18 [facility] Comment on above: Order Comment: Speci men Type: BLOOD SPECIMENOrdering Facility: [facility] Address: [address] [place] [address] Performed By: #### 2 4323-8, , ####[facility] LABIA [id number] [place] [address] [place] AST [Catalytic activity/Vol] 19 U/L Normal 14-40 [facility] Comment on above: Order Comment: Speci men Type: BLOOD SPECIMENOrdering Facility: [facility] Address: [address] [place], [place] [address] Performed By: #### 2 4323-8, , ####[facility] LABCLIA [id number] [address] [address] [place] Bilirubin [Mass/Vol] 1.3 mg/dL Normal 0.2-1.3 [facility] Comment on above: Order Comment: Speci men Type: BLOOD SPECIMENOrdering Facility: [facility] Address: [address] [place] [address] Performed By: #### 2 4323-8, , ####[facility] LABCLIA [id number] [place] [address] [place] Calcium [Mass/Vol] 9.0 mg/dL Normal 8.5-10.2 [facility] Comment on above: Order Comment: Speci men Type: BLOOD SPECIMENOrdering Facility: [facility] Address: [address] [place] [address] Performed By: #### 2 4323-8, , ####[facility] LABIA [id number] [place] [address] [place] Chloride [Moles/Vol] 106 mmol/L High 97-105 [facility] Comment on above: Order Comment: Speci men Type: BLOOD SPECIMENOrdering Facility: [facility] Address: [address] [place], [place] [address] Performed By: #### 2 4323-8, , ####[facility] LABCLIA [id number] [place] [id number] [place] CO2 [Moles/Vol] 23 mmol/L Normal 22-30 [facility] Comment on above: Order Comment: Speci men Type: BLOOD SPECIMENOrdering Facility: [facility] Address: [address] [place], [place] [address] Performed By: #### 2 4323-8, , ####[facility] LABCLIA [id number] [place] [id number] [place] Creatinine [Mass/Vol] 1.00 mg/dL Normal 0.73-1.22 [facility] Comment on above: Order Comment: Speci men Type: BLOOD SPECIMENOrdering Facility: [facility] Address: [address] [place] [address] Performed By: #### 2 4323-8, , ####[facility] LABIA [id number] [place] [address] [place] Creatinine and Glomerular filtration rate.predicted panel (S/P/Bld) 73 mL/min/1.73m??? Normal >=60 [facility] Comment on above: Order Comment: Kailey simons Type: BLOOD SPECIMENOrdering Facility: [facility] Address: [address] [place] [address] Result Comment: Louann mated Glomerular Filtration Rate (eGFR) is calculated using the 2020 CKD-EPI creatinine equation. This equation utilizes serum creatinine, sex, and age as parameters. The creatinine assay has traceable calibration to isotope dilution-mass spectrometry. Refer to KDIGO guidelines for clinical interpretation. In patients with unstable renal function, e.g. those with acute kidney injury, the eGFR may not accurately reflect actual GFR. Performed By: #### 2 4323-8, , ####[facility] LABIA [id number] [place] [id number] [place] Glucose [Mass/Vol] 93 mg/dL Normal 74-99 [facility] Comment on above: Order Comment: Speci men Type: BLOOD SPECIMENOrdering Facility: [facility] Address: [address] [place] [address] Result Comment: The [place] Diabetes Association (ADA) provides guidance for cutoff values for fasting glucose and random glucose. The ADA defines fasting as no caloric intake for at least 8 hours. Fasting plasma glucose results between 100 to 125 mg/dL indicate increased risk for diabetes (prediabetes). Fasting plasma glucose results greater than or equal to 126 mg/dL meet the criteria for diagnosis of diabetes. In the absence of unequivocal hyperglycemia, results should be confirmed by repeat testing. In a patient with classic symptoms of hyperglycemia or hyperglycemic crisis, random plasma glucose results greater than or equal to 200 mg/dL meet the criteria for diagnosis of diabetes. Reference: Standards of Medical Care in Diabetes 2016, [place] Diabetes Association. Diabetes Care. 2016.39(Suppl 1). Performed By: #### 2 4323-8, , ####[facility] LABCLIA [id number] [address] [address] [place] Potassium [Moles/Vol] 4.0 mmol/L Normal 3.7-5.1 [facility] Comment on above: Order Comment: Speci men Type: BLOOD SPECIMENOrdering Facility: [facility] Address: [address] [place] [address] Performed By: #### 2 4323-8, , ####[facility] LABCLIA [id number] [place] [address] [place] Protein [Mass/Vol] 6.0 g/dL Low 6.3-8.0 [facility] Comment on above: Order Comment: Speci men Type: BLOOD SPECIMENOrdering Facility: [facility] Address: [address] [place] [address] Performed By: #### 2 4323-8, , ####[facility] LABCLIA [id number] [address] [address] [place] Sodium [Moles/Vol] 142 mmol/L Normal 136-144 [facility] Comment on above: Order Comment: Speci men Type: BLOOD SPECIMENOrdering Facility: [facility] Address: [address] [place] [address] Performed By: #### 2 4323-8, , ####[facility] LABCLIA [id number] [place] [address] [place] Urea nitrogen [Mass/Vol] 15 mg/dL Normal 9-24 [facility] Comment on above: Order Comment: Speci men Type: BLOOD SPECIMENOrdering Facility: [facility] Address: [address] [place] [address] Performed By: #### 2 4323-8, 71982-6, 75852-9 ####[facility] LABCLIA [id number] [place] [address] [place] Lipid 1996 panelon 4 Cholesterol [Mass/Vol] 131 mg/dL Normal <200 [facility] Comment on above: Order Comment: Speci men Type: BLOOD SPECIMENOrdering Facility: [facility] Address: [address] [place] [address] Result Comment: <200 mg/dL, Desirable 200-239 mg/dL, Borderline high >239 mg/dL, High Performed By: #### 2 4323-8, , 66380-2 ####[facility] LABCLIA [id number] [place] [address] [place] Cholesterol in HDL [Mass/Vol] 38 mg/dL Low >39 [facility] Comment on above: Order Comment: Speci men Type: BLOOD SPECIMENOrdering Facility: [facility] Address: [address] [place] [address] Result Comment: 40-5 9 mg/dL, Acceptable >59 mg/dL, High: Negative risk factor for coronary heart disease <40 mg/dL, Low: Positive risk factor for coronary heart disease Performed By: #### 2 4323-8, 90343-2, 90230-0 ####[facility] LABCLIA [id number] [address] [place] Cholesterol in LDL [Mass/Vol] 75 mg/dL Normal <100 [facility] Comment on above: Order Comment: Speci men Type: BLOOD SPECIMENOrdering Facility: [facility] Address: [address] [place] [address] Result Comment: <100 mg/dL, Optimal 100-129 mg/dL, Near optimal/above optimal 130-159 mg/dL, Borderline high 160-189 mg/dL, High >189 mg/dL, Very high Secondary prevention optimal LDL Cholesterol levels are recommended to be < 70 mg/dL Performed By: #### 2 4323-8, 30439-7, 55802-5 ####[facility] LABCLIA [id number] [place] [address] [place] Cholesterol in LDL/Cholesterol in HDL [Mass ratio] 1.97 {ratio} Normal <2.54 [facility] Comment on above: Order Comment: Kailey men Type: BLOOD SPECIMENOrdering Facility: [facility] Address: [address] [place] [address] Result Comment: Refe rence: 1. National Cholesterol Education Program ATP III Guideline At-A-Glance Quick Desk Reference: National Heart, Lung, and Blood [place]. National Institutes of Health. 2001: NIH Publication No. 01-3305. 2. An International Atherosclerosis Society position paper: global recommendations for the management of dyslipidemia: executive summary, Atherosclerosis. 2014: 232(2):410-413. Performed By: #### 2 4323-8, , ####[facility] LABCLIA [id number] [place] [address] [place] Cholesterol in VLDL [Mass/Vol] 18 mg/dL Normal <30 [facility] Comment on above: Order Comment: Kailey men Type: BLOOD SPECIMENOrdering Facility: [facility] Address: [address] [place] [address] Performed By: #### 2 4323-8, , ####[facility] LABCLIA [id number] [address] [address] [place] Cholesterol non HDL [Mass/Vol] 93 mg/dL Normal <130 [facility] Comment on above: Order Comment: Kailey men Type: BLOOD SPECIMENOrdering Facility: [facility] Address: [address] [place] [address] Result Comment: <130 mg/dL, Optimal 130-159 mg/dL, Near optimal/above optimal 160-189 mg/dL, Borderline high 190-219 mg/dL, High >219 mg/dL, Very high Secondary prevention optimal non HDL Cholesterol levels are recommended to be <100 mg/dL Performed By: #### 2 4323-8, 18436-6, 92508-7 ####[facility] LABCLIA [id number] [place] [address] [place] Cholesterol.total/Chol esterol in HDL [Mass ratio] 3.45 {ratio} Normal <5.10 [facility] Comment on above: Order Comment: Speci men Type: BLOOD SPECIMENOrdering Facility: [facility] Address: [address] [place] [address] Performed By: #### 2 4323-8, , ####[facility] LABCLIA [id number] [place] [address] [place] FASTING TIME 12 hrs Normal [facility] Comment on above: Order Comment: Speci men Type: BLOOD SPECIMENOrdering Facility: [facility] Address: [address] [place] [address] Performed By: #### 2 4323-8, , ####[facility] LABCLIA [id number] [place] [address] [place] Triglyceride [Mass/Vol] 91 mg/dL Normal <150 [facility] Comment on above: Order Comment: Speci men Type: BLOOD SPECIMENOrdering Facility: [facility] Address: [address] [place] [address] Result Comment: <150 mg/dL, Normal 150-199 mg/dL, Borderline high 200-499 mg/dL, High >499 mg/dL, Very high Performed By: #### 2 4323-8, , 58806-5 ####[facility] LABCLIA [id number] [place] [id number] [place] Magnesium SerPl-mCncon 12-26 Magnesium [Mass/Vol] 2.1 mg/dL Normal 1.7-2.3 [facility] Comment on above: Order Comment: Speci men Type: BLOOD SPECIMENOrdering Facility: [facility] Address: [address] [place] [address] Performed By: #### 2 4323-8, 07994-5, 80840-1 ####[facility] LABCLIA [id number] [place] [address] [place] CNOVon 12-25-2023 CNOV Office Visit (TRDUY ) CLARK LYLES ([id number]) 1935 M Date Time Provider Department 12/25/23 9:00 AM Radha DURBIN During your visit today, we recorded the following information about you: Pulse Respiration Blood pressure Weight 61/minute 16/minute 120/68 72.1 kg Radha Durbin PA-C 12/26/2023 2:22 PM Signed 88 year old male with c/o here for follow up. 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 08/02/2023 echocardiogram [facility]: LV size WNL, mild concentric LVH, EF 65%. Diastolic dysfunction indeterminant. RV normal size and RV SF LA enlarged. RA WNL. Trivial mitral valve insufficiency moderate 2+ tricuspid insufficiency, RVSP 75 mmHg AV sclerosis, no stenosis PV not well-visualized Normal-sized aortic root No pericardial effusion 02/27/2022 exercise myocardial perfusion stress test demonstrated [...] to suggest ischemia. 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 Was recommended to have a screening stress test to insure patency of LAD stent 09/08/2019 cardiac cath: [...] back pain suggestive of angina: No. SOB: Yes, runs out or breath doing lawn work. Takes 10 minutes to recover. Dyspnea with exertion: No orthopnea: No Cough : No racing or irregular heartbeats: No palpitations: No syncopal sx: No. Denies dizziness since reduced medication. Walking around 1.5 acres, not currently on treadmill. Headache: No Unexplainable fatigue No Leg swelling: No Nausea: No diaphoresis: No Heartburn: No Claudication: No Smoking: No Following Low cholesterol, high fiber diet? some If on statin: muscle aches? No If on statin: GI sx or diarrhea? Yes Additional history none. Lab review: no new labs Khari Beam: drinking 1/5 a week: states 1-2 shots Component Latest Ref Rng AND Units 11/29/2022 04/30/2023 06/28/2023 WBC 3.70 - 11.00 k/uL 8.76 11.02 (H) RBC 4.20 - 6.00 m/uL 5.17 5.38 Hemoglobin 13.0 - 17.0 g/dL 16.1 16.7 Hematocrit 39.0 - 51.0 % 49.3 50.0 MCV 80.0 - 100.0 fL 95.4 92.9 MCH 26.0 - 34.0 pg 31.1 31.0 MCHC 30.5 - 36.0 g/dL 32.7 33.4 RDW-CV 11.5 - 15.0 % 15.3 (H) 13.9 Platelet Count 150 - 400 k/uL 194 229 MPV 9.0 - 12.7 fL 11.8 11.6 Neut% % 79.6 Abs Neut (ANC) 1.45 - 7.50 k/uL 8.78 (H) Lymph% % 7.4 Abs Lymph 1.00 - 4.00 k/uL 0.81 (L) Becker% % 9.0 Abs Becker <0.87 k/uL 0.99 (H) Eosin% % 2.6 Abs Eosin <0.46 k/uL 0.29 Baso% % 0.5 Abs Baso <0.11 k/uL 0.05 Immature Gran % % 0.9 IMMATURE GRANS (ABS) <0.10 k/uL 0.10 (H) NRBC /100 WBC 0.0 Absolute nRBC <0.01 k/uL <0.01 <0.01 DTYPE Auto Protein, Total 6.3 - 8.0 g/dL 6.3 6.3 Albumin 3.9 - 4.9 g/dL 4.1 4.3 Calcium 8.5 - 10.2 mg/dL 9.4 9.8 Bilirubin, Total 0.2 - 1.3 mg/dL 0.7 1.1 Alkaline Phosphatase 38 - 113 U/L 50 53 AST 14 - 40 U/L 19 21 ALT 10 - 54 U/L 14 26 Glucose 74 - 99 mg/dL 105 (H) 94 BUN 9 - 24 mg/dL 13 16 Creatinine 0.73 - 1.22 mg/dL 0.94 1.03 1.11 Sodium 136 - 144 mmol/L 143 139 Potassium 3.7 - 5.1 mmol/L 4.1 4.1 Chloride 97 - 105 mmol/L 105 103 CO2 22 - 30 mmol/L 24 27 Anion Gap 9 - 18 mmol/L 14 9 eGFR >=60 mL/min/1.73mA? 79 71 65 Cholesterol, Total <200 mg/dL 134 Triglyceride <150 mg/dL 94 HDL Cholesterol >39 mg/dL 39 (L) Non HDL Cholesterol <130 mg/dL 95 Fasting Time hrs 12 VLDL Cholesterol <30 mg/dL 19 TC:HDL Ratio <5.10 (more content not included)... Normal [facility] Absolute lymphocyte countOrd ered By: Jerrell Faith on 08-04-2023 Lymphocytes Auto (Unsp spec) [#/Vol] 0.71 10*3/uL 0.83-4.51 [facility] Basophil percentageOrdered B y: Jerrell Faith on 08-04-2023 Basophils/100 WBC (Bld) 0.4 % 0-1 [facility] Chloride [Moles/Vol] 113 mmol/L 98-107 [facility] Eosinophils/100 WBC (Bld) 4.1 % 0-5 [facility] Glucose [Mass/Vol] 96 mg/dL 74-106 [facility] Neutrophils (Bld) [#/Vol] 6.1 10*3/uL 2.0-7.7 [facility] Neutrophils/100 WBC (Bld) 76.4 % 47-70 [facility] Potassium [Moles/Vol] 4.1 mmol/L 3.5-5.1 [facility] Sodium [Moles/Vol] 141 mmol/L 136-145 [facility] WBC (Bld) [#/Vol] 8.0 10*3/uL 4.4-11.0 [facility] [facility] Blood erythrocytes count (nu mber/volume)Ordered By: Jerrell Faith on 08-04-2023 RBC (Bld) [#/Vol] 4.52 10*6/uL 4.6-6.2 [facility] Blood hemoglobin measurement (mass/volume)Ordered By: Jerrell Faith on 08-04-2023 Hemoglobin (Bld) [Mass/Vol] 13.4 g/dL 13.0-16.5 [facility] Blood lymphocytes/100 leukoc ytesOrdered By: Jerrell Faith on 08-04-2023 Lymphocytes/100 WBC (Bld) 8.9 % 19-41 [facility] Blood monocytes/100 leukocyt esOrdered By: Jerrell Faith on 08-04-2023 Monocytes/100 WBC (Bld) 9.4 % 0-10 [facility] Blood platelet mean volumeOr dered By: Jerrell Faith on 08-04-2023 Platelet mean volume (Bld) [Entitic vol] 10.7 fL 6.2-12.0 [facility] Determination of erythrocyte mean corpuscular volume (MCV)Ordered By: Jerrell Faith on 08-04-2023 MCV (RBC) [Entitic vol] 92.3 fL 80-94 [facility] Hematocrit Auto (Bld) [Volum e fraction]Ordered By: Jerrell Faith on 08-04-2023 Hematocrit (Bld) [Volume fraction] 41.7 % 40-54 [facility] Laboratory - Chemistry and C hemistry - challengeOrdered By: Jerrell Faith on 08-04-2023 CO2 [Moles/Vol] 25.0 mmol/L 21.0-32.0 [facility] Urea nitrogen/Creatinine [Mass ratio] 22.1 mg/mg 10-20 [facility] Laboratory - Hematology and Cell countsOrdered By: Jerrell Faith on 08-04-2023 Erythrocyte distribution width (RBC) [Entitic vol] 49.3 fL 35.1-43.9 [facility] Erythrocyte distribution width (RBC) [Ratio] 14.6 % 11.6-14.6 [facility] Immature granulocytes/100 WBC (Bld) 0.800 % 0.0-0.9 [facility] Comment on above: IG% - Immature Granu locytes (promyelocytes, myelocytes and metamyelocytes) > 1% indicates that a LEFT SHIFT is Present. MCH (RBC) [Entitic mass] 29.6 pg 27.0-32.0 [facility] Nucleated RBC/100 WBC (Bld) [Ratio] 0 % 0-5 [facility] MCHC Auto (RBC) [Mass/Vol]Or dered By: Jerrell Faith on 08-04-2023 MCHC (RBC) [Mass/Vol] 32.1 g/dL 32-36 [facility] No Panel InformationOrdered By: Jerrell Faith on 08-04-2023 Estimated Creatinine Clearance Calc 66.51 ml/min [facility] Estimated GFR (MDRD) Amer 115 mL/min >60 [facility] Comment on above: GFR Calc Estimated GFR (MDRD) Non-Af Amer 95 mL/min >60 [facility] Comment on above: Non- GFR Calc Platelets bldOrdered By: Ismael Faith on 08-04-2023 Platelets (Bld) [#/Vol] 186 10*3/uL 150-450 [facility] Serum or plasma calcium nichole urement (mass/volume)Ordered By: Jerrell Faith on 08-04-2023 Calcium [Mass/Vol] 8.9 mg/dL 8.5-10.1 [facility] Serum or plasma creatinine m easurement (mass/volume)Ordered By: Jerrell Faith on 08-04-2023 Creatinine [Mass/Vol] 0.82 mg/dL 0.70-1.30 [facility] Comment on above: The validity of the calculated GFR & GFRAA in patients over 70 years has not been determined. Clinical correlation is essential. Serum or plasma urea nitroge n measurement (mass/volume)Ordered By: Jerrell Faith on 08-04-2023 Urea nitrogen [Mass/Vol] 18 mg/dL 7-18 [facility] Thin prep Papanicolaou smear with manual screeningOrdered By: Jerrell Faith on 08-04-2023 Thin prep Papanicolaou smear with manual screening 3 5-15 [facility] Basophil percentageOrdered B y: Jerrell Faith on 08-03-2023 Basophil percentage 2.1 mg/dL 2.5-4.9 [facility] Bilirubin [Mass/Vol] 0.30 mg/dL 0.20-1.00 [facility] Comment on above: For patients on eltr ombopag therapy, use of Dimension [place] TBIL is not recommended. Protein [Mass/Vol] 5.6 g/dL 6.4-8.2 [facility] Clostridium difficile detect ion by polymerase chain reactionOrdered By: Jerrell Faith on 08-03-2023 C. difficile DNA CAMERON+probe Ql (Unsp spec) [facility] Laboratory - Chemistry and C hemistry - challengeOrdered By: Jerrell Faith on 08-03-2023 ALP [Catalytic activity/Vol] 46 U/L 45-117 [facility] ALT [Catalytic activity/Vol] 18 U/L 16-61 [facility] Globulin (S) [Mass/Vol] 2.6 g/dL 2.2-4.2 [facility] Magnesium [Mass/Vol] 1.9 mg/dL 1.6-2.6 [facility] Serum or plasma albumin nichole urement (mass/volume)Ordered By: Jerrell Faith on 08-03-2023 Albumin [Mass/Vol] 3.0 g/dL 3.2-5.0 [facility] Serum or plasma albumin/glob ulin mass ratioOrdered By: Jerrell Faith on 08-03-2023 Albumin/Globulin [Mass ratio] 1.2 {ratio} 0.9-2.4 [facility] Thin prep Papanicolaou smear with manual screeningOrdered By: Jerrell Faith on 08-03-2023 Thin prep Papanicolaou smear with manual screening 10 U/L 15-37 [facility] Blood manual differential co mment interpretation (narrative result)Ordered By: Jasmine Tan on 08-02-2023 Manual differential comment Héctor (Bld) [Interp] COMMENT [facility] Comment on above: LYMPHOPENIA. Urine Legionella pneumophila antigen detectionOrdered By: Jasmine Tan on 08-02-2023 L. pneumophila Ag Ql (U) [facility] Absolute lymphocyte countOrd ered By: Lewis Sutton on 08-01-2023 Lymphocytes Auto (Unsp spec) [#/Vol] 0.52 10*3/uL 0.83-4.51 [facility] Basophil percentageOrdered B y: Lewis Sutton on 08-01-2023 Basophils/100 WBC (Bld) 0.2 % 0-1 [facility] Chloride [Moles/Vol] 103 mmol/L 98-107 [facility] Eosinophils/100 WBC (Bld) 0.9 % 0-5 [facility] Glucose [Mass/Vol] 117 mg/dL 74-106 [facility] Comment on above: Fasting Glucose resu lt from 100 to 125 mg/dL suggests IMPAIRED HOMEOSTASIS per A.D.A. criteria. Neutrophils (Bld) [#/Vol] 7.6 10*3/uL 2.0-7.7 [facility] Neutrophils/100 WBC (Bld) 82.0 % 47-70 [facility] Potassium [Moles/Vol] 3.1 mmol/L 3.5-5.1 [facility] Sodium [Moles/Vol] 136 mmol/L 136-145 [facility] WBC (Bld) [#/Vol] 9.2 10*3/uL 4.4-11.0 [facility] Blood erythrocytes count (nu mber/volume)Ordered By: Lewis Sutton on 08-01-2023 RBC (Bld) [#/Vol] 4.78 10*6/uL 4.6-6.2 [facility] Blood hemoglobin measurement (mass/volume)Ordered By: Lewis Sutton on 08-01-2023 Hemoglobin (Bld) [Mass/Vol] 14.8 g/dL 13.0-16.5 [facility] Blood lymphocytes/100 leukoc ytesOrdered By: Lewis Sutton on 08-01-2023 Lymphocytes/100 WBC (Bld) 5.7 % 19-41 [facility] Blood manual differential co mment interpretation (narrative result)Ordered By: Lewis Sutton on 08-01-2023 Manual differential comment Héctor (Bld) [Interp] SCANNED [facility] Blood monocytes/100 leukocyt esOrdered By: Lewis Sutton on 08-01-2023 Monocytes/100 WBC (Bld) 10.3 % 0-10 [facility] Blood platelet mean volumeOr dered By: Lewis Sutton on 08-01-2023 Platelet mean volume (Bld) [Entitic vol] 11.5 fL 6.2-12.0 [facility] Determination of erythrocyte mean corpuscular volume (MCV)Ordered By: Lewis Sutton on 08-01-2023 MCV (RBC) [Entitic vol] 89.5 fL 80-94 [facility] Hematocrit Auto (Bld) [Volum e fraction]Ordered By: Lewis Sutton on 01-03-2024 Hematocrit (Bld) [Volume fraction] 42.8 % 40-54 [facility] Influenza virus A and B and SARS-CoV-2 (COVID-19) Ag panel - Upper respiratory specimOrdered By: Lewis Sutton on 08-01-2023 SARS-CoV-2 (COVID-19) RNA CAMERON+probe Ql (Resp) [facility] Laboratory - Chemistry and C hemistry - challengeOrdered By: Lewis Sutton on 08-01-2023 CO2 [Moles/Vol] 26.0 mmol/L 21.0-32.0 [facility] Natriuretic peptide B (Bld) [Mass/Vol] 198.3 pg/mL 0-100 [facility] Urea nitrogen/Creatinine [Mass ratio] 11.8 mg/mg 10-20 [facility] Laboratory - Hematology and Cell countsOrdered By: Lewis Sutton on 08-01-2023 Erythrocyte distribution width (RBC) [Entitic vol] 46.8 fL 35.1-43.9 [facility] Erythrocyte distribution width (RBC) [Ratio] 14.3 % 11.6-14.6 [facility] Immature granulocytes/100 WBC (Bld) 0.900 % 0.0-0.9 [facility] Comment on above: IG% - Immature Granu locytes (promyelocytes, myelocytes and metamyelocytes) > 1% indicates that a LEFT SHIFT is Present. MCH (RBC) [Entitic mass] 31.0 pg 27.0-32.0 [facility] Nucleated RBC/100 WBC (Bld) [Ratio] 0 % 0-5 [facility] Laboratory - Microbiology an d Antimicrobial susceptibilityOrdered By: Jasmine Tan on 08-01-2023 SARS-CoV-2 (COVID-19) RNA CAMERON+probe Ql (Unsp spec) [facility] MCHC Auto (RBC) [Mass/Vol]Or dered By: Lewis Sutton on 08-01-2023 MCHC (RBC) [Mass/Vol] 34.6 g/dL 32-36 [facility] No Panel InformationOrdered By: Lewis Sutton on 08-01-2023 D-Dimer Quantitative (PE/DVT) 0.47 FEU/ug/m 0.27-0.49 [facility] Comment on above: NORMAL D-Dimer level (<0.50) indicates no DVT or PE. Estimated Creatinine Clearance Calc 50.69 ml/min [facility] Estimated GFR (MDRD) Amer 82 mL/min >60 [facility] Comment on above: GFR Calc Estimated GFR (MDRD) Non-Af Amer 68 mL/min >60 [facility] Comment on above: Non- GFR Calc Troponin I High Sensitivity 8 pg/mL 3.0-78.0 [facility] Comment on above: Please Note: [place] t Units and Gender Specific Reference Ranges. For more information see Policy Stat Procedure [place] High Sensitivity Troponin (TNIH) and attachments. Platelets bldOrdered By: Gabby Sutton on 08-01-2023 Platelets (Bld) [#/Vol] 175 10*3/uL 150-450 [facility] Respiratory pathogens detect ion panel by molecular detection methodOrdered By: Jasmine Tan on 08-01-2023 Respiratory pathogens DNA and RNA panel CAMERON+probe (Resp) [facility] Serum or plasma calcium nichole urement (mass/volume)Ordered By: eLwis Sutton on 08-01-2023 Calcium [Mass/Vol] 8.8 mg/dL 8.5-10.1 [facility] Serum or plasma creatinine m easurement (mass/volume)Ordered By: Lewis Sutton on 08-01-2023 Creatinine [Mass/Vol] 1.10 mg/dL 0.70-1.30 [facility] Comment on above: The validity of the calculated GFR & GFRAA in patients over 70 years has not been determined. Clinical correlation is essential. Serum or plasma urea nitroge n measurement (mass/volume)Ordered By: Lewis Sutton on 08-01-2023 Urea nitrogen [Mass/Vol] 13 mg/dL 7-18 [facility] Serum procalcitonin measurem entOrdered By: Jasmine Tan on 08-01-2023 Procalcitonin [Mass/Vol] 0.07 ng/mL 0.00-0.09 [facility] Comment on above: A procalcitonin (PCT ) level above 2.0 ng/mL on the first day of ICU admission is associated with a high risk for progression to severe sepsis and/or septic shock. A PCT level below 0.5 ng/mL on the first day of ICU admission is associated with a low risk for progression to severe and/or septic shock. Note: Concentrations <0.5 ng/mL do not exclude an infection on account of localized infections (without systemic signs) which can be associated with such low concentrations, or a systemic infection in its initial stages (<6 hours). Furthermore, increased procalcitonin can occur without infection. PCT concentrations between 0.5 and 2.0 ng/mL should be interpreted taking into account the patient's history. It is recommended to retest PCT within 6-24 hours if any concentrations <2 ng/mL are obtained. Thin prep Papanicolaou smear with manual screeningOrdered By: Lewis Sutton on 08-01-2023 Thin prep Papanicolaou smear with manual screening 12-11 [facility] CBC W Auto Differential pane l (Bld)on 06-28-2023 Basophils (Bld) [#/Vol] 0.05 10*3/uL <0.11 k/uL [facility] Basophils/100 WBC (Bld) 0.5 % [facility] Differential cell count method Nom (Bld) Auto [facility] Eosinophils (Bld) [#/Vol] 0.29 10*3/uL <0.46 k/uL [facility] Eosinophils/100 WBC (Bld) 2.6 % [facility] Erythrocyte distribution width (RBC) [Ratio] 13.9 % 11.5 - 15.0 % [facility] Hematocrit (Bld) [Volume fraction] 50.0 % 39.0 - 51.0 % [facility] Hemoglobin (Bld) [Mass/Vol] 16.7 g/dL 13.0 - 17.0 g/dL [facility] Immature granulocytes (Bld) [#/Vol] 0.10 10*3/uL High <0.10 k/uL [facility] Immature granulocytes/100 WBC (Bld) 0.9 % [facility] Lymphocytes (Bld) [#/Vol] 0.81 10*3/uL Low 1.00 - 4.00 k/uL [facility] Lymphocytes/100 WBC (Bld) 7.4 % [facility] MCH (RBC) [Entitic mass] 31.0 pg 26.0 - 34.0 pg [facility] MCHC (RBC) [Mass/Vol] 33.4 g/dL 30.5 - 36.0 g/dL [facility] MCV (RBC) [Entitic vol] 92.9 fL 80.0 - 100.0 fL [facility] Monocytes (Bld) [#/Vol] 0.99 10*3/uL High <0.87 k/uL [facility] Monocytes/100 WBC (Bld) 9.0 % [facility] Neutrophils (Bld) [#/Vol] 8.78 10*3/uL High 1.45 - 7.50 k/uL [facility] Neutrophils/100 WBC (Bld) 79.6 % [facility] Nucleated RBC (Bld) [#/Vol] <0.01 k/uL [facility] Nucleated RBC/100 WBC (Bld) [Ratio] 0.0 /100 WBC [facility] Platelet mean volume (Bld) [Entitic vol] 11.6 fL 9.0 - 12.7 fL [facility] Platelets (Bld) [#/Vol] 229 10*3/uL 150 - 400 k/uL [facility] RBC (Bld) [#/Vol] 5.38 10*6/uL 4.20 - 6.00 m/uL [facility] WBC (Bld) [#/Vol] 11.02 10*3/uL High 3.70 - 11.00 k/uL [facility] Comprehensive metabolic 2000 panelon 06-28-2023 Albumin [Mass/Vol] 4.3 g/dL 3.9 - 4.9 g/dL [facility] ALP [Catalytic activity/Vol] 53 U/L 38 - 113 U/L [facility] ALT [Catalytic activity/Vol] 26 U/L 10 - 54 U/L [facility] Anion gap [Moles/Vol] 9 mmol/L 9 - 18 mmol/L [facility] AST [Catalytic activity/Vol] 21 U/L 14 - 40 U/L [facility] Bilirubin [Mass/Vol] 1.1 mg/dL 0.2 - 1 .3 mg/dL [facility] Calcium [Mass/Vol] 9.8 mg/dL 8.5 - 10. 2 mg/dL [facility] Chloride [Moles/Vol] 103 mmol/L 97 - 10 5 mmol/L [facility] CO2 [Moles/Vol] 27 mmol/L 22 - 30 mmol/L [facility] Creatinine [Mass/Vol] 1.11 mg/dL 0.73 - 1.22 mg/dL [facility] Estimated Glomerular Filtration Rate 65 mL/min/1.73m >=60 mL/min/1.7 3m [facility] Glucose [Mass/Vol] 94 mg/dL 74 - 99 mg/dL [facility] Potassium [Moles/Vol] 4.1 mmol/L 3.7 - 5.1 mmol/L [facility] Protein [Mass/Vol] 6.3 g/dL 6.3 - 8.0 g/dL [facility] Sodium [Moles/Vol] 139 mmol/L 136 - 144 mmol/L [facility] Urea nitrogen [Mass/Vol] 16 mg/dL 9 - 24 mg/dL [facility] CTA ABD/PEL W IVCONon 2022 [facility] XR LUMBAR GENERAL 3V AP/LAT/ L5-S1on 01-31-2023 [facility] XR Lumbar spine 3 Viewson IMPRESSION: NO EVIDE NCE OF FRACTURE Fermentation Engineer: GINNA Transcribe Date/Time: Jan 31 2023 11:11A Dictated by : RIVERA OLIVAS MD This examination was interpreted and the report reviewed and electronically signed by: RIVERA OLIVAS MD on Jan 31 2023 11:13AM [facility] DIVISION OF RADIOLOGY * * *Final Report* * * DATE OF EXAM: Jan 31 2023 11:11AM WOX [id number] - XR LUMBAR 3V AP/LAT/L5-S1 / PROCEDURE REASON: Back pain of lumbar region with sciatica * * * * Physician Interpretation * * * * X-ray lumbosacral spine, AP, lateral and L5-S1 views Indication: Low back pain Comparison: None Counting reference: Lumbosacral junction. For the purposes of this report, L5S1 is considered the last lumbar type disc space and L4-5 is considered the level of the iliac crest. No acute fracture. There is good alignment of the vertebrae. There is degenerative disc disease at multiple levels of the lumbar spine with endplate sclerosis, intervertebral disc space narrowing and osteophyte formation. Sacroiliac joints appear normal. Vascular calcifications are noted. DIVISION OF RADIOLOGY Provider, Ian Reynolds - 01/31/2023 * * *Final Report* * * DATE OF EXAM: Jan 31 2023 11:11AM WOX [id number] - XR LUMBAR 3V AP/LAT/L5-S1 / PROCEDURE REASON: Back pain of lumbar region with sciatica * * * * Physician Interpretation * * * * X-ray lumbosacral spine, AP, lateral and L5-S1 views Indication: Low back pain Comparison: None Counting reference: Lumbosacral junction. For the purposes of this report, L5S1 is considered the last lumbar type disc space and L4-5 is considered the level of the iliac crest. No acute fracture. There is good alignment of the vertebrae. There is degenerative disc disease at multiple levels of the lumbar spine with endplate sclerosis, intervertebral disc space narrowing and osteophyte formation. Sacroiliac joints appear normal. Vascular calcifications are noted. IMPRESSION IMPRESSION: NO EVIDENCE OF FRACTURE Fermentation Engineer: GINNA Transcribe Date/Time: Jan 31 2023 11:11A Dictated by : RIVERA OLIVAS MD This examination was interpreted and the report reviewed and electronically signed by: RIVERA OLIVAS MD on Jan 31 2023 11:13AM EST [facility] Radiology Study observation (narrative) [facility] XR Lumbar spine 3 ViewsOrder ed By: [facility] Provider on 01-31-2023 [facility] UA DIP, URINE (POC)on 2022 BILIRUBIN UA (POCT) Negative Negative [facility] CLARITY UA (POCT) Clear [facility] COLOR UA (POCT) Yellow [facility] GLUCOSE UA (POCT) Negative Negative mg/dL [facility] HEMOGLOBIN/BLOOD UA (POCT) Negative Negative [facility] KETONE UA (POCT) Negative Negative mg/dL [facility] LEUKOCYTES UA (POCT) Negative Negative [facility] NITRITE UA (POCT) Negative Negative [facility] PH UA (POCT) 5.5 4.5 - 8.0 [facility] Protein Ql (U) Negative Negative mg/dL [facility] SPECIFIC GRAVITY UA (POCT) 1.015 1.005 - 1.030 [facility] UROBILINOGEN UA (POCT) 0.2 E.U./dL Stephany l E.U./dL [facility] Office Visit: PAD, recheck diane jocelynradha siteon 05-31-2017 Documentation of current medications (procedure) Done Invalid Interpretation Code [facility] Work Phone: Fall risk assessment No Invalid Interpretation Code [facility] [employer] Work Phone: Tobacco smoking status NHIS Never Invalid Interpretation Code [facility] [employer] Work Phone: Tobacco use CPHS Former smoker Invalid Interpretation Code [facility] [employer] Work Phone: Lab Report: Basic Metabolic Profile (BMP)on 05-18-2017 Anion gap 9 mmol/L Invalid Interpretation Code -15 [facility] [employer] Work Phone: Anion gap 4 molar conc 9 Invalid Interpretation Code 15 [facility] [employer] Work Phone: Calcium mass conc 8.8 mg/dL Invalid Interpretation Code 8.5-10.1 [facility] [employer] Work Phone: Chloride molar conc 108 mmol/L High 98-107 [facility] [employer] Work Phone: CO2 23.0 mmol/L Invalid Interpretation Code 21.0-32.0 [facility] [employer] Work Phone: CO2 ppres (BldV) 23.0 mmol/L Invalid Interpretation Code 21.0-32.0 [facility] [employer] Work Phone: Creatinine mass conc 0.80 mg/dL Invalid Interpretation Code 0.70-1.30 [facility] [employer] Work Phone: eGFR (non-black) 120 mL/min/{1.73_m2} Invalid Interpretation Code >60 [facility] [employer] Work Phone: EST GFR - AA 120 mL/min Invalid Interpretation Code >60 [facility] [employer] Work Phone: GFR/1.73 sq M predicted among non-blacks MDRD vol rate/area (S/P/Bld) 99 mL/min/{1.73_m2} Invalid Interpretation Code >60 [facility] [employer] Work Phone: Glucose mass conc 120 mg/dL High 70-110 [facility] [employer] Work Phone: Potassium molar conc 3.6 mmol/L Invalid Interpretation Code 3.5-5.1 [facility] [employer] Work Phone: Sodium molar conc 140 mmol/L Invalid Interpretation Code 136-145 [facility] [employer] Work Phone: Urea nitrogen mass conc 13 mg/dL Invalid Interpretation Code 7-18 [facility] [employer] Work Phone: Urea nitrogen/Creatinine mass ratio 16.3 RATIO Invalid Interpretation Code 10-20 [facility] [employer] Work Phone: Office Visit: [facility] 05-08-20 17 Documentation of current medications (procedure) Done Invalid Interpretation Code [facility] [employer] Work Phone: Fall risk assessment No Invalid Interpretation Code [facility] [employer] Work Phone: Protein mass conc Done Invalid Interpretation Code [facility] [employer] Work Phone: Tobacco smoking status NHIS Never Invalid Interpretation Code [facility] [employer] Work Phone: Tobacco smoking status NHIS Former smoker Invalid Interpretation Code [facility] [employer] Work Phone: Tobacco use [facility] Former smoker Invalid Interpretation Code [facility] [employer] Work Phone: Vital Signs Date Time Vital Sign Value Performing Clinician Facility 10-16-2024 08:56-0400 Body height 177.[address] Neo Tejeda DO Work Phone: [facility] 10-16-2024 08:56-0400 Body mass index (BMI) [Ratio] 23.8 kg/m2 Dr. Neo Tejeda DO Work Phone: [facility] 10-16-2024 08:56-0400 Body temperature 97.3 [degF] Dr. Neo Tejeda DO Work Phone: [facility] 10-16-2024 08:56-0400 Body weight 75.[address] Neo Tejeda DO Work Phone: [facility] 10-16-2024 08:56-0400 Diastolic blood pressure 65 mm[Hg] Dr. Neo Tejeda DO Work Phone: [facility] 10-16-2024 08:56-0400 Heart rate 73 /min Dr. Neo Tejeda DO Work Phone: [facility] 10-16-2024 08:56-0400 Respiratory rate 20 /min Dr. Neo Tejeda DO Work Phone: [facility] 10-16-2024 08:56-0400 SaO2% (BldA) [Mass fraction] 90 % Dr. Neo Tejeda DO Work Phone: [facility] 10-16-2024 08:56-0400 Systolic blood pressure 121 mm[Hg] Dr. Neo Tejeda DO Work Phone: [facility] 09-19-2024 14:55-0500 Body mass index (BMI) [Ratio] 22.96 kg/m2 Brigitte Suppan [employer] Work Phone: [facility] 09-19-2024 14:55-0500 Body temperature 98.71 [degF] Brigitte Suppan [employer] Work Phone: [facility] 09-19-2024 14:55-0500 Body weight 72.58 kg Brigitte Suppan [employer] Work Phone: [facility] 09-19-2024 14:55-0500 Diastolic blood pressure 62 mm[Hg] Brigitte Suppan [employer] Work Phone: [facility] 09-19-2024 14:55-0500 Heart rate 80 /min Brigitte Suppan [employer] Work Phone: [facility] 09-19-2024 14:55-0500 SaO2% (BldA) [Mass fraction] 90 % Brigitte Suppan [employer] Work Phone: [facility] Comment on above: 3 liters of oxygen 09-19-2024 14:55-0500 Systolic blood pressure 128 mm[Hg] Brigitte Suppan [employer] Work Phone: [facility] 09-15-2024 15:00-0500 Body temperature 97.6 [degF] Dr. Neo Tejeda DO Work Phone: [facility] 09-15-2024 15:00-0500 Diastolic blood pressure 71 mm[Hg] Dr. Neo Tejeda DO Work Phone: [phone] [place] [address] 09-15-2024 15:00-0500 Heart rate 82 /min Dr. Neo Tejeda DO Work Phone: [phone] [place] [address] 09-15-2024 15:00-0500 Respiratory rate 16 /min Dr. Neo Tejeda DO Work Phone: [phone] [place] [address] 09-15-2024 15:00-0500 SaO2% (BldA) [Mass fraction] 93 % Dr. Neo Tejeda DO Work Phone: [phone] [place] [address] 09-15-2024 15:00-0500 Systolic blood pressure 140 mm[Hg] Dr. Neo Tejeda DO Work Phone: [phone] [place] [address] 09-15-2024 10:09-0500 Body weight 73.[address] Neo Tejeda DO Work Phone: [phone] [place] [address] 09-15-2024 09:00-0500 Inhaled oxygen flow rate 3 L/min Dr. Neo Tejeda DO Work Phone: [phone] [place] [address] 09-15-2024 03:59-0500 Body mass index (BMI) [Ratio] 23.1 kg/m2 Dr. Neo Tejeda DO Work Phone: [phone] [place] [address] 09-12-2024 09:19-0500 Inhaled oxygen concentration 34 % Dr. Neo Tejeda DO Work Phone: [facility] 03-27-2024 07:47-0400 Body mass index (BMI) [Ratio] 21.81 kg/m2 Brigitte Segal [employer]ING TRUCK [employer]IVER.GANG LEADER Work Phone: [facility] 03-27-2024 07:47-0400 Body weight 68.95 kg Brigitte Segal [employer]IVER.GANG LEADER Work Phone: [facility] 03-27-2024 07:47-0400 Diastolic blood pressure 67 mm[Hg] Brigitte Suppan [employer]IVER.GANG LEADER Work Phone: [facility] 03-27-2024 07:47-0400 Heart rate 63 /min Brigitte Suppan [employer]IVER.GANG LEADER Work Phone: [facility] 03-27-2024 07:47-0400 Respiratory rate 16 /min Brigitte Suppan [employer] TR[employer]IVER.GANG LEADER Work Phone: [facility] 03-27-2024 07:47-0400 SaO2% (BldA) [Mass fraction] 94 % Brigitte Suppan [employer]ING TRUCK [employer]IVER.GANG LEADER Work Phone: [facility] 03-27-2024 07:47-0400 Systolic blood pressure 126 mm[Hg] Brigitte Suppan [employer]ING TR[employer]IVER.GANG LEADER Work Phone: [facility] 02-25-2024 08:22-0400 Body mass index (BMI) [Ratio] 21.81 kg/m2 Brigitte Suppan [employer] TR[employer]IVER.GANG LEADER Work Phone: [facility] 02-25-2024 08:22-0400 Body weight 68.95 kg Brigitte Suppan [employer] TR[employer]IVER.GANG LEADER Work Phone: [facility] 02-25-2024 08:22-0400 Diastolic blood pressure 70 mm[Hg] Brigitte Suppan [employer] TR[employer]IVER.GANG LEADER Work Phone: [facility] 02-25-2024 08:22-0400 Heart rate 60 /min Brigitte Suppan [employer]ING TR[employer]IVER.GANG LEADER Work Phone: [facility] 02-25-2024 08:22-0400 Respiratory rate 16 /min Brigitte Suppan [employer]ING TR[employer] DRIVER.GANG LEADER Work Phone: [facility] 02-25-2024 08:22-0400 SaO2% (BldA) [Mass fraction] 94 % Brigitte Suppan [employer] TR[employer]IVER.GANG LEADER Work Phone: [facility] 02-25-2024 08:22-0400 Systolic blood pressure 148 mm[Hg] Brigitte Suppan [employer]ING TR[employer]IVER.GANG LEADER Work Phone: [facility] 12-25-2023 08:53-0400 Body mass index (BMI) [Ratio] 22.81 kg/m2 NA Durbin PA-C Work Phone: [facility] 12-25-2023 08:53-0400 Body weight 72.12 kg NA Durbin PA-C Work Phone: [facility] 12-25-2023 08:53-0400 Diastolic blood pressure 68 mm[Hg] NA Durbin PA-C Work Phone: [facility] 12-25-2023 08:53-0400 Heart rate 61 /min NA Durbin PA-C Work Phone: [facility] 12-25-2023 08:53-0400 Respiratory rate 16 /min NA Durbin PA-C Work Phone: [facility] 12-25-2023 08:53-0400 SaO2% (BldA) [Mass fraction] 95 % NA Durbin PA-C Work Phone: [facility] 12-25-2023 08:53-0400 Systolic blood pressure 120 mm[Hg] NA Durbin PA-C Work Phone: [facility] 09-25-2023 09:07-0500 Body weight 72.12 kg NA Durbin PA-C Work Phone: [facility] 09-25-2023 09:07-0500 Diastolic blood pressure 62 mm[Hg] NA Durbin PA-C Work Phone: [facility] 09-25-2023 09:07-0500 Heart rate 66 /min NA Durbin PA-C Work Phone: [facility] 09-25-2023 09:07-0500 Respiratory rate 16 /min NA Durbin PA-C Work Phone: [facility] 09-25-2023 09:07-0500 SaO2% (BldA) [Mass fraction] 92 % NA Durbin PA-C Work Phone: [facility] 09-25-2023 09:07-0500 Systolic blood pressure 110 mm[Hg] NA Durbin PA-C Work Phone: [facility] 08-04-2023 12:46-0500 SaO2% (BldA) [Mass fraction] 98 % PA NA Durbin PA Work Phone: [facility] 08-04-2023 10:58-0500 Heart rate 75 /min PA NA Durbin PA Work Phone: [facility] 08-04-2023 10:58-0500 Respiratory rate 16 /min PA NA Durbin PA Work Phone: [facility] 08-04-2023 09:00-0500 Body temperature 97.2 [degF] PA NA Durbin PA Work Phone: [facility] 08-04-2023 09:00-0500 Diastolic blood pressure 62 mm[Hg] PA NA Durbin PA Work Phone: [facility] 08-04-2023 09:00-0500 Systolic blood pressure 138 mm[Hg] PA NA Durbin PA Work Phone: [facility] 08-04-2023 07:20-0500 Inhaled oxygen flow rate 4 L/min PA NA Durbin PA Work Phone: [facility] 08-04-2023 03:07-0500 Body mass index (BMI) [Ratio] 22.6 kg/m2 PA NA Durbin PA Work Phone: [facility] 08-04-2023 03:07-0500 Body weight 71.4 kg PA NA Durbin PA Work Phone: [facility] 08-02-2023 13:52-0500 Body height 177.8 cm PA NA Durbin PA Work Phone: [facility] 08-01-2023 20:53-0500 Inhaled oxygen concentration 92 % PA NA Durbin PA Work Phone: [facility] 08-01-2023 16:17-0500 Diastolic blood pressure 76 mm[Hg] [facility] 08-01-2023 16:17-0500 Heart rate 77 /min [facility] 08-01-2023 16:17-0500 SaO2% (BldA) [Mass fraction] 91 % [facility] 08-01-2023 16:17-0500 Systolic blood pressure 150 mm[Hg] [facility] 08-01-2023 16:16-0500 Inhaled oxygen flow rate 5 L/min [facility] 08-01-2023 16:16-0500 Respiratory rate 24 /min [facility] 08-01-2023 12:44-0500 Body height 177.8 cm [facility] 08-01-2023 12:44-0500 Body mass index (BMI) [Ratio] 23.3 kg/m2 [facility] 08-01-2023 12:44-0500 Body temperature 97.9 [degF] [facility] 08-01-2023 12:44-0500 Body weight 73.66 kg [facility] 06-28-2023 08:57-0500 Body weight 70.94 kg NA Durbin PA-C Work Phone: [facility] 06-28-2023 08:57-0500 Diastolic blood pressure 70 mm[Hg] NA Durbin PA-C Work Phone: [facility] 06-28-2023 08:57-0500 Heart rate 60 /min NA Durbin PA-C Work Phone: [facility] 06-28-2023 08:57-0500 Respiratory rate 16 /min NA Durbin PA-C Work Phone: [facility] 06-28-2023 08:57-0500 SaO2% (BldA) [Mass fraction] 97 % NA Durbin PA-C Work Phone: [facility] 06-28-2023 08:57-0500 Systolic blood pressure 122 mm[Hg] NA Durbin PA-C Work Phone: [facility] 05-25-2023 11:07-0400 Body temperature 98.1 [degF] Jair Marvin MD Work Phone: [facility] 05-25-2023 11:07-0400 Body weight 71.67 kg Jair Marvin MD Work Phone: [facility] 05-25-2023 11:07-0400 Diastolic blood pressure 69 mm[Hg] Jair Marvin MD Work Phone: [facility] 05-25-2023 11:07-0400 Heart rate 70 /min Jair Marvni MD Work Phone: [facility] 05-25-2023 11:07-0400 Respiratory rate 18 /min Jair Marvin MD Work Phone: [facility] 05-25-2023 11:07-0400 SaO2% (BldA) [Mass fraction] 93 % Jair Marvin MD Work Phone: [facility] 05-25-2023 11:07-0400 Systolic blood pressure 132 mm[Hg] Jair Marvin MD Work Phone: [facility] 02-08-2023 09:28-0400 Body weight 71.67 kg NA Durbin PA-C Work Phone: [facility] 02-08-2023 09:28-0400 Diastolic blood pressure 80 mm[Hg] NA Durbin PA-C Work Phone: [facility] 02-08-2023 09:28-0400 Heart rate 56 /min NA Durbin PA-C Work Phone: [facility] 02-08-2023 09:28-0400 Respiratory rate 16 /min NA Durbin PA-C Work Phone: [facility] 02-08-2023 09:28-0400 SaO2% (BldA) [Mass fraction] 96 % NA Durbin PA-C Work Phone: [facility] 02-08-2023 09:28-0400 Systolic blood pressure 148 mm[Hg] NA Durbin PA-C Work Phone: [facility] 01-31-2023 10:43-0400 Body temperature 97.9 [degF] Rebekah Athy PA-C Work Phone: [facility] 01-31-2023 10:43-0400 Body weight 73.57 kg Rebekah Athy PA-C Work Phone: [facility] 01-31-2023 10:43-0400 Diastolic blood pressure 86 mm[Hg] Rebekah Athy PA-C Work Phone: [facility] 01-31-2023 10:43-0400 Heart rate 58 /min Rebekah Athy PA-C Work Phone: [facility] 01-31-2023 10:43-0400 Respiratory rate 18 /min Rebekah Athy PA-C Work Phone: [facility] 01-31-2023 10:43-0400 SaO2% (BldA) [Mass fraction] 97 % Rebekah Athy PA-C Work Phone: [facility] 01-31-2023 10:43-0400 Systolic blood pressure 164 mm[Hg] Rebekah Athy PA-C Work Phone: [facility] 11-27-2022 14:57-0400 Body weight 73.03 kg NA Durbin PA-C Work Phone: [facility] 11-27-2022 14:57-0400 Diastolic blood pressure 68 mm[Hg] NA Durbin PA-C Work Phone: [facility] 11-27-2022 14:57-0400 Heart rate 57 /min NA Durbin PA-C Work Phone: [facility] 11-27-2022 14:57-0400 SaO2% (BldA) [Mass fraction] 96 % NA Durbin PA-C Work Phone: [facility] 11-27-2022 14:57-0400 Systolic blood pressure 130 mm[Hg] NA Durbin PA-C Work Phone: [facility] 06-21-2022 23:01-0500 Heart rate 85 /min PA NA Durbin PA Work Phone: [facility] Work Phone: 06-21-2022 23:01-0500 Respiratory rate 15 /min PA NA Durbin PA Work Phone: [facility] Work Phone: 06-21-2022 23:01-0500 SaO2% (BldA) [Mass fraction] 98 % PA NA Durbin PA Work Phone: [facility] Work Phone: 06-21-2022 21:53-0500 Body height 177.8 cm PA NA Durbin PA Work Phone: [facility] Work Phone: 06-21-2022 21:53-0500 Body mass index (BMI) [Ratio] 22.9 kg/m2 PA NA Durbin PA Work Phone: [facility] Work Phone: 06-21-2022 21:53-0500 Body temperature 97.8 [degF] PA NA Durbin PA Work Phone: [facility] Work Phone: 06-21-2022 21:53-0500 Body weight 72.57 kg PA NA Durbin PA Work Phone: [facility] Work Phone: 06-21-2022 21:53-0500 Diastolic blood pressure 80 mm[Hg] PA NA Durbin PA Work Phone: [facility] Work Phone: 06-21-2022 21:53-0500 Systolic blood pressure 166 mm[Hg] PA NA Durbin PA Work Phone: [facility] Work Phone: 02-08-2022 12:26-0400 Body height 177.[address] Brian Mackenzie III Work Phone: [facility] Work Phone: 02-08-2022 12:26-0400 Body mass index (BMI) [Ratio] 23.5 kg/m2 Dr. Brian Mackenzie III Work Phone: [facility] Work Phone: 02-08-2022 12:26-0400 Body weight 74.[address] Brian Mackenzie III Work Phone: [facility] Work Phone: 02-08-2022 12:26-0400 Diastolic blood pressure 69 mm[Hg] Dr. Brian Mackenzie III Work Phone: [facility] Work Phone: 02-08-2022 12:26-0400 Heart rate 56 /min Dr. Brian Mackenzie III Work Phone: [facility] Work Phone: 02-08-2022 12:26-0400 Respiratory rate 16 /min Dr. Brian Mackenzie III Work Phone: [facility] Work Phone: 02-08-2022 12:26-0400 SaO2% (BldA) [Mass fraction] 96 % Dr. Brian Mackenzie III Work Phone: [facility] Work Phone: 02-08-2022 12:26-0400 Systolic blood pressure 125 mm[Hg] Dr. Brian Mackenzie III Work Phone: [facility] Work Phone: 05-31-2017 08:40-0400 BMI (Body Mass Index) 23.11 kg/m2 Quan Mackenzie MD [facility] Work Phone: 05-31-2017 08:40-0400 Body Temperature 97.9 [degF] Quan Mackenzie MD [facility] Work Phone: 05-31-2017 08:40-0400 BP Diastolic 70 mm[Hg] Quan Mackenzie MD [facility] Work Phone: 05-31-2017 08:40-0400 BP Systolic 150 mm[Hg] Quan Mackenzie MD [facility] Work Phone: 05-31-2017 08:40-0400 Height 182.88 cm Quan Mackenzie MD [facility] Work Phone: 05-31-2017 08:40-0400 Pulse (Heart Rate) 74 /min Quan Mackenzie MD [facility] Work Phone: 05-31-2017 08:40-0400 Respiratory Rate 20 /min Quan Mackenzie MD [facility] Work Phone: 05-31-2017 08:40-0400 Weight 77.29 kg Quan Mackenzie MD [facility] Work Phone: 05-08-2017 14:55-0400 BMI (Body Mass Index) 23.08 kg/m2 Quan Mackenzie MD [facility] Work Phone: 05-08-2017 14:55-0400 Body Temperature 97.5 [degF] Quan Mackenzie MD [facility] Work Phone: 05-08-2017 14:55-0400 BP Diastolic 76 mm[Hg] Quan Mackenzie MD [facility] Work Phone: 05-08-2017 14:55-0400 BP Systolic 175 mm[Hg] Quan Mackenzie MD [facility] Work Phone: 05-08-2017 14:55-0400 Height 182.88 cm Quan Mackenzie MD [facility] Work Phone: 05-08-2017 14:55-0400 Pulse (Heart Rate) 67 /min Quan Mackenzie MD [facility] Work Phone: 05-08-2017 14:55-0400 Respiratory Rate 20 /min Quan Mackenzie MD [facility] Work Phone: 05-08-2017 14:55-0400 Weight 77.2 kg Quan Mackenzie MD [facility] Work Phone: Encounters Encounter Date Encounter Type Care Provider Facility Start: 10-31-2024 End: 10-31-2024 Telephone encounter Brigitte Segal [employer]IVER.GANG LEADER Work Phone: [facility] Comment on above: [id number]; Initial Consu lt Start: 10-31-2024 ambulatory Brigitte Suppan Facil ity:[facility] Start: 10-27-2024 End: 10-27-2024 Telephone encounter Brigitte Segal APRN.GANG LEADER Work Phone: [facility] Comment on above: Orders; patient POC Start: 10-16-2024 End: 10-16-2024 Patient encounter procedure Kalyn Taylor [facility] Work Phone: Start: 10-16-2024 End: 10-16-2024 ambulatory Brigitte Suppan Facility:[facility] Start: 10-15-2024 End: 10-30-2024 Telephone encounter Brigitte Segal APRN.GANG LEADER Work Phone: [facility] Comment on above: Patient Update Start: 10-03-2024 End: 10-03-2024 Telephone encounter Brigitte Segal APRN.GANG LEADER Work Phone: [facility] Comment on above: Oxygen; FYI-No Actio n Needed (/) Start: 09-19-2024 End: 09-19-2024 ambulatory BRIGITTE Lemos SUPPHEAVENLY Facility:[place] Start: 09-19-2024 End: 09-19-2024 Office outpatient visit 25 minutes Brigitte Segal APRN.GANG LEADER Work Phone: [facility] Comment on above: Chronic insomnia (Pr imary Dx); Benign prostatic hyperplasia with nocturia; Screening for depression; Hyperlipidemia LDL goal <100; Essential hypertension, benign; Parkinson's disease without dyskinesia, unspecified whether manifestations fluctuate (HCC); 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 John Soliz [facility] Work Phone: Start: 09-14-2024 Non-patient / Non-visit Dr. Lester Eduardo [facility] Work Phone: Start: 09-13-2024 Non-patient / Non-visit Dr. Lester Eduardo [facility] Work Phone: Start: 09-12-2024 Non-patient / Non-visit Dr. Lester Eduardo [facility] Work Phone: Start: 09-11-2024 Non-patient / Non-visit Dr. Lester Eduardo [facility] Work Phone: Start: 09-10-2024 Non-patient / Non-visit Dr. Lester Eduardo [facility] Work Phone: Start: 09-09-2024 End: 09-09-2024 Telephone encounter Brigitte Segal [employer]IVER.GANG LEADER Work Phone: [facility] Start: 09-09-2024 Non-patient / Non-visit Dr. Lester Eduardo [facility] Work Phone: Start: 09-08-2024 ambulatory Brigitte Segal Facil ity:[facility] Start: 09-08-2024 Non-patient / Non-visit Dr. Elmer MANUEL [facility] Start: 09-08-2024 Non-patient / Non-visit Dr. Lester Eduardo [facility] Work Phone: Start: 09-07-2024 Non-patient / Non-visit Dr. Jerrell badillo [facility] Work Phone: Start: 09-07-2024 ambulatory Lester Perdomo Facility:[facility] Start: 09-07-2024 End: 09-15-2024 Evaluation and management of inpatient Jerrell Faith Facility:[facility] Start: 03-27-2024 End: 03-27-2024 ambulatory BRIGITTE A SUPPAN Facility:[place] Start: 03-27-2024 End: 03-27-2024 Office outpatient visit 15 minutes Brigitte A Suppan [employer]IVER.GANG LEADER Work Phone: [facility] Comment on above: S/P primary angiopla sty with coronary stent; PAD (peripheral artery disease) (HCC); Hyperlipidemia LDL goal <100; Anxiety state; Benign prostatic hyperplasia with nocturia; Essential hypertension, benign; Left sided abdominal pain Start: 03-13-2024 Refill Radha Salgado on PA-C Work Phone: [facility] Comment on above: Refill Request Start: 02-28-2024 ambulatory Radha KING Fac ility:[facility] Start: 02-26-2024 Telephone encounter Brigitte A Suppan [employer]LING TR[employer]IVER.GANG LEADER Work Phone: [facility] Start: 02-25-2024 End: 02-25-2024 ambulatory BRIGITTE A SUPPAN Facility:[place] Start: 02-25-2024 End: 02-25-2024 Office outpatient visit 15 minutes Brigitte A Suppan [employer]ING TR[employer] DRIVER.GANG LEADER Work Phone: [facility] Comment on above: Left sided abdominal pain (Primary Dx); Essential hypertension, benign Start: 02-19-2024 End: 02-19-2024 ambulatory Radha KING Facility:[facility] Start: 02-09-2024 End: 02-09-2024 Emergency department patient visit Radha KING Facility:[facility] Start: 12-31-2023 Refill Radha Salgado on PA-C Work Phone: [facility] Comment on above: Refill Request Start: 12-28-2023 Telephone encounter Walter Gomez MD Work Phone: [facility] Comment on above: Results Start: 12-27-2023 End: 12-27-2023 ambulatory CASPER DURBIN Facility:[place] Start: 12-25-2023 End: 12-25-2023 ambulatory CASPER JUSTIN DURBIN Facility:[place] Start: 12-25-2023 End: 12-25-2023 Patient encounter procedure Radha Durbin PA-C Work Phone: [facility] Comment on above: Coronary artery dise ase involving round valley coronary artery of round valley heart without angina pectoris (Primary Dx); S/P primary angioplasty with coronary stent; Angina pectoris (HCC); Atherosclerosis of aorta (HCC); Essential hypertension, benign; Hyperlipidemia LDL goal <100; PAD (peripheral artery disease) (HCC); Forgetfulness; Parkinson's disease without dyskinesia, with fluctuating manifestations (HCC); Hyperbilirubinemia; Gastroesophageal reflux disease, unspecified whether esophagitis present; Benign prostatic hyperplasia with nocturia; Anxiety state; Current use of proton pump inhibitor; Alcohol use disorder, mild, abuse Start: 12-13-2023 Refill Radha benjamin PA-C Work Phone: [facility] Comment on above: Refill Request Start: 09-25-2023 End: 09-25-2023 Patient encounter procedure Radha Durbin PA-C Work Phone: [facility] Comment on above: Coronary artery dise ase involving round valley coronary artery of round valley heart without angina pectoris; S/P primary angioplasty with coronary stent; Angina pectoris (HCC); Atherosclerosis of aorta (HCC); Essential hypertension, benign; Hyperlipidemia, mixed; PAD (peripheral artery disease) (HCC); Parkinson's disease without dyskinesia, with fluctuating manifestations (HCC); Hyperbilirubinemia; Gastroesophageal reflux disease, unspecified whether esophagitis present; Benign prostatic hyperplasia with nocturia; Anxiety state; Hospital discharge follow-up; Acute respiratory failure with hypoxia (HCC); Pneumonia, primary atypical Start: 08-04-2023 Non-patient / Non-visit CHRISTINE KING Work Phone: [facility] Work Phone: Start: 08-03-2023 Non-patient / Non-visit PA NA Durbin PA Work Phone: [facility] Work Phone: Start: 08-02-2023 Non-patient / Non-visit PA NANDA Durbin PA Work Phone: [facility] Work Phone: Start: 08-01-2023 End: 08-04-2023 Evaluation and management of inpatient PA NANDA Durbin PA Work Phone: [facility] Work Phone: Start: 08-01-2023 Evaluation and manag ement of inpatient [facility] Work Phone: Start: 07-10-2023 Refill Radha Salgado on PA-C Work Phone: [facility] Comment on above: Refill Request Start: 07-02-2023 Telephone encounter Radha WareJustin Durbin PA-C Work Phone: [facility] Start: 06-28-2023 End: 06-28-2023 Patient encounter procedure Radha Durbin PA-C Work Phone: [facility] Comment on above: Coronary artery dise ase involving round valley coronary artery of round valley heart without angina pectoris (Primary Dx); S/P primary angioplasty with coronary stent; Angina pectoris ([facility]); Atherosclerosis of aorta ([facility]); Essential hypertension, benign; Hyperlipidemia LDL goal <100; PAD (peripheral artery disease) ([facility]); Parkinson's disease without dyskinesia, with fluctuating manifestations; Hyperbilirubinemia; Gastroesophageal reflux disease, unspecified whether esophagitis present; Benign prostatic hyperplasia with nocturia; Anxiety state; Diarrhea, unspecified type Start: 06-18-2023 Refill Radha Salgado on PA-C Work Phone: [facility] Comment on above: Refill Request Start: 05-25-2023 End: 05-25-2023 Patient encounter procedure Jair Marvin MD Work Phone: [facility] Comment on above: Abrasion of anterior right lower leg, initial encounter (Primary Dx) Start: 05-14-2023 Telephone encounter Radha Justin Durbin PA-C Work Phone: [facility] Comment on above: Results Start: 05-11-2023 Telephone encounter Radha Justin Durbin PA-C Work Phone: [facility] Comment on above: Results Start: 05-11-2023 End: 05-11-2023 Subsequent hospital visit by physician [facility] ([facility]Stat) Work Phone: [facility] Comment on above: Atherosclerosis of a ken (HCC) [I70.0] Start: 02-08-2023 End: 02-08-2023 Patient encounter procedure Radha Justin Durbin PA-C Work Phone: [facility] Comment on above: Piriformis syndrome, left (Primary Dx); Somatic dysfunction of left sacroiliac joint Start: 01-31-2023 End: 01-31-2023 Subsequent hospital visit by physician X[facility] Work Phone: Radiology Comment on above: Back pain of lumbar region with sciatica [M54.40] Start: 01-31-2023 End: 01-31-2023 Patient encounter procedure Rebekah Salazar PA-C Work Phone: [facility] Comment on above: Back pain of lumbar region with sciatica (Primary Dx) Start: 01-12-2023 Refill Walter Gomez MD Work Phone: [facility] Comment on above: Refill Request Start: 11-30-2022 Telephone encounter Radha Justin Durbin PA-C Work Phone: [facility] [place] Comment on above: Results Start: 11-27-2022 End: 11-27-2022 Patient encounter procedure Radha Justin Durbin PA-C Work Phone: Family [facility] Comment on above: S/P primary angiopla sty with coronary stent (Primary Dx); PAD (peripheral artery disease) (HCC); Hyperlipidemia LDL goal <100; Essential hypertension, benign; Angina pectoris (HCC); Parkinson's disease (HCC); Gastroesophageal reflux disease, unspecified whether esophagitis present; Iron deficiency anemia due to chronic blood loss; Benign prostatic hyperplasia with nocturia; Restless legs syndrome; Anxiety state; Elevated PSA; Chronic insomnia Start: 08-07-2022 Refill Radha Salgado on PA-C Work Phone: [facility] Comment on above: Refill Request Start: 07-07-2022 Refill Radha Justin Salgado on PA-C Work Phone: [facility] Comment on above: Refill Request Start: 06-21-2022 End: 06-21-2022 Emergency department patient visit CHRISTINE KING Work Phone: [facility]-Emergency Department Start: 04-10-2022 Refill Radha Justin Salgado on PA-C Work Phone: [facility] Comment on above: Refill Request Start: 02-27-2022 Non-patient / Non-visit Dr. Fr georgina Mackenzie III Work Phone: [facility] Start: 02-27-2022 End: 02-27-[address] Brian Mackenzie III Work Phone: [facility]Cardiov[facility] Start: 02-08-2022 End: 02-08-[address] Brian Mackenzie III Work Phone: [facility] Start: 01-09-2022 Refill Radha Salgado on PA-C Work Phone: [facility] Comment on above: Refill Request Procedures Date Procedure Procedure Detail Performing Clinician Start: 09-19-2024 Adult depression scr eening assessment Brigitte Segal [employer]ING TRUCK [employer]IVER.GANG LEADER Work Phone: Start: 09-14-[address] Neo Tejeda DO Work Phone: Start: 09-14-2024 Measurement of renal function Dr. Neo Tejeda DO Work Phone: Comment on above: GFR Calc Start: 09-14-[address] Neo Tejeda DO Work Phone: Start: 09-09-2024 Gram stain microscopy Monique Tejeda DO Work Phone: Start: 09-09-2024 Legionella pneumophi la antigen assay Dr. Neo Tejeda DO Work Phone: Start: 09-09-[address] Neo Tejeda DO Work Phone: Start: 09-09-2024 End: 09-09-2024 Streptococcus pneumoniae antigen assay Dr. Neo Tejeda DO Work Phone: Start: 09-08-2024 CT angiography of ch est with contrast Dr. Neo Tejeda DO Work Phone: Start: 09-08-2024 Assay of phosphorus inorganic Dr. Neo Tejeda DO Work Phone: Start: 09-08-2024 Plain X-ray abdomen Dr. Neo Tejeda DO Work Phone: Start: 09-07-[address] Neo Tejeda DO Work Phone: Start: 09-07-2024 SARS-CoV-2, Influenz a & RSV (PCR) Dr. Neo Tejeda DO Work Phone: Start: 09-07-2024 Carbon dioxide measu rement, partial pressure Dr. Neo Tejeda DO Work Phone: Start: 09-07-2024 Gases blood o2 satur ation only direct nichole Dr. Neo Tejeda DO Work Phone: Start: 09-07-2024 Measurement of parti al pressure of oxygen in blood Dr. Neo Tejeda DO Work Phone: Start: 09-07-[address] Neo Tejeda DO Work Phone: Start: 09-07-2024 Urnls dip stick/tabl et reagent auto microscopy Dr. Neo Tejeda DO Work Phone: Start: 09-07-2024 D-dimer assay, quantitative Dr. Neo Tejeda DO Work Phone: Comment on above: D-Dimer ELEVATED (>0 .49): Additional studies and clinicalassessments are indicated to conclude diagnosis of:Deep Vein Thrombosis (DVT) or Pulmonary Embolism (PE)CRITICAL VALUE CALLED TO NIKOLAS HILL09/07/24 1307 Robyn Muhammadhang.RESULTS READ BACK BY SAME. Start: 09-07-2024 CT angiography of he ad and neck Dr. Neo Tejeda DO Work Phone: Start: 09-07-2024 End: 09-07-2024 Plain x-ray of elbow Dr. Neo Tejeda DO Work Phone: Start: 09-07-2024 CT of head without contrast Dr. Neo Tejeda DO Work Phone: Start: 09-07-2024 Plain chest X-ray Dr. Hugo Tejeda DO Work Phone: Start: 08-03-2023 Clostridium difficil e detection CHRISTINE KING Work Phone: Start: 08-02-2023 Legionella pneumophi la antigen assay CHRISTINE KING Work Phone: Start: 08-01-2023 Coronavirus COVID-19 PCR CHRISTINE KING Work Phone: Start: 08-01-2023 Nucleic acid assay CHRISTINE KING Work Phone: Start: 08-01-2023 SARS-CoV-2 & FLU Ant igen (Rapid) Start: 08-01-2023 Plain chest X-ray Start: 05-11-2023 Ct angio abd&plvis c ntrst mtrl w/wo cntrst img Radha Durbin PA-C Work Phone: Start: 01-31-2023 Radex spine lumbosac ral 2/3 views Rebekah Salazar PA-C Work Phone: Start: 11-27-2022 Urnls dip stick/tabl et rgnt auto w/o microscopy Radha Durbin PA-C Work Phone: Start: 02-27-2022 Radionuclide imaging of perfusion of myocardium under exercise stress Dr. Brian Mackenzie III Work Phone: Start: 12-22-2020 History of placement of stent for coronary artery disease S/P primary angioplasty with coronary stent NANDA Durbin PA-C Work Phone: Start: 09-08-2019 History of placement of stent for coronary artery disease History of coronary artery stent placement Dr. Brian Mackenzie III Work Phone: Comment on above: PCI-JAM mid LAD w/ 2 .5 x 32 mm Promus Synergy 09/08/2019 History of placement of stent for coronary artery disease S/P primary angioplasty with coronary stent Radha Salgadoon PA-C Work Phone: History of placement of stent for coronary artery disease S/P primary angioplasty with coronary stent M Justin Durbin PA-C Work Phone: History of placement of stent for coronary artery disease S/P primary angioplasty with coronary stent M Justin Durbin PA-C Work Phone: History of placement of stent for coronary artery disease S/P primary angioplasty with coronary stent M Justin Durbin PA-C Work Phone: History of placement of stent for coronary artery disease S/P primary angioplasty with coronary stent M Justin Durbin PA-C Work Phone: History of placement of stent for coronary artery disease S/P primary angioplasty with coronary stent M Justin Durbin PA-C Work Phone: History of placement of stent for coronary artery disease S/P primary angioplasty with coronary stent M Justin Durbin PA-C Work Phone: History of placement of stent for coronary artery disease S/P primary angioplasty with coronary stent Brigitte Segal APRN.GANG LEADER Work Phone: Plan of Treatment Date Care Activity Detail Author Start: 02-24-2027 Diabetes Screening Diabetes Screening [facility] Start: 12-26-2026 Diabetes Screening Diabetes Screening [facility] Start: 06-28-2026 Diabetes Screening Diabetes Screening [facility] Start: 05-10-2026 Urine microalbumin profile [facility] Start: 11-29-2025 DIABETES SCREEN DIABETES SCREEN [facility] Start: 11-29-2025 Diabetes Screening Diabetes Screening [facility] Start: 09-19-2025 Depression Screening Depression Screening [facility] Start: 03-19-2025 End: 03-19-2025 Patient encounter procedure 03/19/2025 10:40 AM EDT Office Visit [facility] [address] [place] [address] Brigitte Segal [employer]ING TRUCK [employer]IVER.GANG LEADER [address] [place] [id number] 6 month exam [facility] Comment on above: 6 month exam Start: 01-26-2025 [facility] Comment on above: Postponed from 03/30/2024 (Declined at t his time) Start: 12-26-2024 Hepatitis B surface antibody level LDL Cholesterol [facility] Start: 12-24-2024 Covid-19 Vaccine ( season) Covid-19 Vaccine () [facility] Comment on above: Postponed from 08/31/2023 (Declined at t his time) Start: 12-24-2024 DIABETES SCREEN DIABETES SCREEN [facility] Start: 10-20-2024 End: 10-20-2024 Patient encounter procedure 10/20/2024 10:00 AM EDT Office Visit Family [facility] [place] [address] [place] [address] Brigitte Segal APRN.GANG LEADER [address] [place] [place] [address] follow up Family [facility] [place] Comment on above: follow up Start: 09-19-2024 End: 09-19-2024 Patient encounter procedure 09/19/2024 2:40 PM EST Office Visit Family [facility] [place] [address] [place] [address] Brigitte Segal, [employer] TR[employer] DRIVER.GANG LEADER [address] [facility] [place] [id number] [phone] follow up [facility] for hypoxia Family [facility] Comment on above: follow up [facility] for hypoxia Start: 09-15-2024 Referral to service [facility] Start: 09-15-2024 Patient discharge [facility] Start: 09-08-2024 Referral to occupational therapist [facility] Start: 09-08-2024 Referral to service [facility] Start: 09-08-2024 Physiotherapy of chest [facility] Start: 09-07-2024 Following clinical pathway protocol [facility] Start: 09-07-2024 Ambulation without limitation [facility] Start: 09-07-2024 Assessment of risk of venous thromboembolism [facility] Start: 09-07-2024 Catheterization of vein [facility] Start: 09-07-2024 Inhalation therapy procedure [facility] Start: 09-07-2024 Insertion of catheter into peripheral vein [facility] Start: 09-07-2024 Measuring intake and output [facility] Start: 09-07-2024 Providing care according to standard [facility] Start: 09-07-2024 Provision of activity privileges [facility] Start: 09-07-2024 [facility] Start: 09-07-2024 Admission procedure [facility] Start: 09-07-2024 Oxygen therapy [facility] Start: 09-07-2024 [facility] Start: 09-07-2024 Continuous positive airway pressure ventilation treatment [facility] Start: 09-07-2024 Patient referral to dietitian [facility] Start: 07-30-2024 Advance Directive Discussion Advance Directive Discussion [facility] Start: 07-01-2024 End: 07-01-2024 Patient encounter procedure 07/01/2024 9:00 AM EST Office Visit [facility] [place] [address] [place] [address] Radha Durbin PA-C [address] [place] [address] 6 month follow up [facility] Comment on above: 6 month follow up Start: 03-30-2024 Covid-19 Vaccine () Covid-19 Vaccine () [facility] Start: 03-30-2024 Covid-19 Vaccine ( season) Covid-19 Vaccine () [facility] Start: 03-30-2024 Influenza vaccination Influenza Vaccine (#1) [facility] Start: 03-27-2024 End: 03-27-2024 Patient encounter procedure 03/27/2024 8:00 AM EDT Office Visit [facility] [place] [address] [place] [address] Brigitte Segal APRN.GANG LEADER [address] [place] [address] 1 month abdominal pain f/u [facility] Comment on above: 1 month abdominal pain f/u Start: 02-25-2024 End: 05-26-2024 Amylase [Enzymatic activity/volume] in Serum or Plasma [facility] Comment on above: Expected: 02/25/2024, Expires: 4 Start: 02-25-2024 End: 05-26-2024 CBC W Auto Differential panel - Blood [facility] Comment on above: Expected: 02/25/2024, Expires: 4 Start: 02-25-2024 End: 05-26-2024 Comprehensive metabolic 2000 panel - Serum or Plasma [facility] Comment on above: Expected: 02/25/2024, Expires: Start: 02-25-2024 End: 05-26-2024 Helicobacter pylori IgG Ab [Presence] in Serum or Plasma by Immunoassay [facility] Work Phone: Comment on above: Expected: 02/25/2024, Expires: 4 Start: 02-25-2024 End: 05-26-2024 Lipase [Enzymatic activity/volume] in Serum or Plasma [facility] Comment on above: Expected: 02/25/2024, Expires: 4 Start: 02-09-2024 COVID-19 VACCINE (4 - Pfizer series) COVID-19 VACCINE (4 - Pfizer series) [facility] Comment on above: Postponed from 07/13/2021 (Declined at t his time) Start: 02-09-2024 SHINGRIX VACCINE (1 of 2) SHINGRIX VACCINE (1 of 2) [facility] Comment on above: Postponed from 11/04/1987 (Declined at t his time) Start: 12-25-2023 End: 12-25-2023 Patient encounter procedure 12/25/2023 9:00 AM EDT Office Visit Family [facility] [place] [address] [place] [address] Radha Durbin PA-C [address] [place] [address] 3 month follow up [facility] Comment on above: 3 month follow up Start: 12-24-2023 End: 03-24-2024 CBC W Auto Differential panel - Blood COMPLETE BLOOD COUNT AND DIFFERENTIAL Lab Routine Coronary artery disease involving round [place] coronary artery of round [place] heart without angina pectoris Essential hypertension, benign Hyperlipidemia LDL goal <100 Gastroesophageal reflux disease, unspecified whether esophagitis present Anxiety state Expected: 12/24/2023, Expires: 03/24/2024 [facility] Work Phone: Comment on above: Expected: 12/24/2023, Expires: Start: 12-24-2023 End: 03-24-2024 Comprehensive metabolic 2000 panel - Serum or Plasma COMPREHENSIVE METABOLIC PANEL Lab Routine Coronary artery disease involving round [place] coronary artery of [place] heart without angina pectoris Essential hypertension, benign Hyperbilirubinemia Gastroesophageal reflux disease, unspecified whether esophagitis present Anxiety state Expected: 12/24/2023, Expires: 03/24/2024 [facility] Comment on above: Expected: 12/24/2023, Expires: Start: 12-24-2023 End: 03-24-2024 Lipid 1996 panel - Serum or Plasma LIPID PANEL BASIC Lab Routine Coronary artery disease involving round [place] coronary artery of round [place] heart without angina pectoris Atherosclerosis of aorta (HCC) Hyperlipidemia LDL goal <100 Expected: 12/24/2023, Expires: 03/24/2024 [facility] Comment on above: Expected: 12/24/2023, Expires: Start: 12-24-2023 End: 03-24-2024 Magnesium [Mass/volume] in Serum or Plasma MAGNESIUM Lab Routine Coronary artery disease involving round [place] coronary artery of round [place] heart without angina pectoris Current use of proton pump inhibitor Expected: 12/24/2023, Expires: 03/24/2024 [facility] Comment on above: Expected: 12/24/2023, Expires: Start: 11-30-2023 Hepatitis B surface antibody level LDL CHOLESTEROL [facility] Start: 08-31-2023 Covid-19 Vaccine () Covid-19 Vaccine () [facility] Start: 08-04-2023 Patient discharge [facility] Start: 08-04-2023 [facility] Start: 08-03-2023 Physiotherapy of chest [facility] Start: 08-01-2023 Elevation of head of bed [facility] Start: 08-01-2023 Patient education [facility] Start: 08-01-2023 [facility] Start: 08-01-2023 Following clinical pathway protocol [facility] Start: 08-01-2023 Oxygen therapy [facility] Start: 08-01-2023 Admission procedure [facility] Start: 08-01-2023 Provision of activity privileges [facility] Start: 08-01-2023 Assessment of risk of venous thromboembolism [facility] Start: 08-01-2023 Insertion of catheter into peripheral vein [facility] Start: 08-01-2023 Measuring intake and output [facility] Start: 08-01-2023 Providing care according to standard [facility] Start: 08-01-2023 End: 08-01-2023 Referral to service [facility] Start: 08-01-2023 [facility] Start: 08-01-2023 Hospital admission, emergency, from emergency room, medical nature [facility] Start: 08-01-2023 Inhalation therapy procedure [facility] Start: 07-30-2023 Advance Directive Discussion Advance Directive Discussion [facility] Start: 07-30-2023 Behavioral Health Screening Behavioral Health Screening [facility] Start: 07-30-2023 Depression Assessment Depression Assessment [facility] Start: 07-29-2023 DEPRESSION ASSESSMENT DEPRESSION ASSESSMENT [facility] Comment on above: Postponed from 07/30/2022 (Declined at t his time) Start: 03-30-2023 Influenza vaccination [facility] Start: 12-24-2022 Hepatitis B surface antibody level LDL CHOLESTEROL [facility] Start: 12-19-2022 SHINGRIX VACCINE (1 of 2) SHINGRIX VACCINE (1 of 2) [facility] Comment on above: Postponed from 11/04/1987 (Insurance Cov erage) Start: 11-27-2022 End: 01-27-2023 CBC panel - Blood by Automated count CBC Lab Routine S/P primary angioplasty with coronary stent Expected: 11/27/2022, Expires: 01/27/2023 [facility] Work Phone: Comment on above: Expected: 11/27/2022, Expires: 3 Start: 11-27-2022 End: 01-27-2023 Comprehensive metabolic 2000 panel - Serum or Plasma COMP METABOLIC PANEL Lab Routine S/P primary angioplasty with coronary stent Expected: 11/27/2022, Expires: 01/27/2023 [facility] Work Phone: Comment on above: Expected: 11/27/2022, Expires: 3 Start: 11-27-2022 End: 01-27-2023 Lipid 1996 panel - Serum or Plasma LIPID PANEL BASIC Lab Routine S/P primary angioplasty with coronary stent Expected: 11/27/2022, Expires: 01/27/2023 [facility] Work Phone: Comment on above: Expected: 11/27/2022, Expires: 3 Start: 11-27-2022 End: 01-27-2023 Prostate specific Ag [Mass/volume] in Serum or Plasma PSA/PROSTSPECAG DIAG Lab Routine Elevated PSA Expected: 11/27/2022, Expires: 01/27/2023 [facility] Work Phone: Comment on above: Expected: 11/27/2022, Expires: 3 Start: 07-30-2022 ADVANCE DIRECTIVE DISCUSSION ADVANCE DIRECTIVE DISCUSSION [facility] Start: 07-30-2022 DEPRESSION ASSESSMENT DEPRESSION ASSESSMENT [facility] Start: 03-30-2022 Influenza vaccination INFLUENZA (#1) [facility] Start: 02-08-2022 Patient referral [facility] Work Phone: Start: 09-18-2021 COVID-19 VACCINE (4 - Booster for Pfizer series) COVID-19 VACCINE (4 - Booster for Pfizer series) [facility] Start: 07-30-2021 DEPRESSION ASSESSMENT DEPRESSION ASSESSMENT [facility] Start: 07-13-2021 COVID-19 VACCINE (4 - Booster for Pfizer series) COVID-19 VACCINE (4 - Booster for Pfizer series) [facility] Start: 05-31-2017 End: 05-31-2017 Appointment Appointment [facility] Work Phone: Start: 05-22-2017 End: 05-22-2017 Appointment Appointment [facility] Work Phone: Start: 05-08-2017 End: 05-08-2017 Appointment Appointment [facility] Work Phone: Start: 05-08-2017 End: 05-08-2017 Arterial exam Arterial exam [facility] Work Phone: Start: 05-08-2017 End: 05-08-2017 N-invas physiologic std lxtr art compl bi PVR with exercise [facility] Work Phone: Start: 2012 RSV Vaccine (1 - 1-dose 75+ series) RSV Vaccine (1 - 1-dose 75+ series) [facility] Start: 1997 RSV Vaccine (1 - 1-dose 60+ series) RSV Vaccine (1 - 1-dose 60+ series) [facility] Start: 11-04-1987 SHINGRIX VACCINE (1 of 2) SHINGRIX VACCINE (1 of 2) [facility] Start: [birth year]-04-1955 Depression Screening Depression Screening [facility] Cyclic citrullinated peptide IgG Ab [Units/volume] in Serum or Plasma [facility] Cytoplasmic ANCA Screen [facility] Measurement of respiratory function [facility] Patient Education ED Epistaxis (Adult) [facility] Work Phone: Patient referral [facility] Work Phone: Rheumatoid factor [Presence] in Serum [facility] [place] Immunizations Immunization Date Immunization Notes Care Provider Mendoza lee 04-30-2023 COVID-19 vaccine, ag e 12+ yr, season (PFIZER-BIONTECH) NA Durbin PA-C Work Phone: [facility] 04-16-2023 influenza, high dose seasonal, preservative-free NA Durbin PA-C Work Phone: [facility] 04-16-2023 influenza virus vacc ine, unspecified formulation Brigittecolette Segal [employer]ING TRUCK [employer]IVER.GANG LEADER Work Phone: [facility] 05-16-2022 influenza (HD-IIV4) vaccine, age 65+ yr, high dose, quadrivalent, PF (FLUZONE HIGH-DOSE) Brigitte Sgeal [employer]INKLING TRUCK DRIVER.GANG LEADER Work Phone: [facility] 05-18-2021 COVID-19 vaccine, ag e 12+ yr (PFIZER-BIONTECH - PURPLE TOP) NA Durbin PA-C Work Phone: [facility] 05-18-2021 influenza (HD-IIV4) vaccine, age 65+ yr, high dose, quadrivalent, PF (FLUZONE HIGH-DOSE) NA Durbin PA-C Work Phone: [facility] 05-18-2021 influenza, high dose seasonal, preservative-free NA Durbin PA-C Work Phone: [facility] 11-01-2020 COVID-19 vaccine, ag e 12+ yr (PFIZER-BIONTECH - PURPLE TOP) NA Durbin PA-C Work Phone: [facility] 10-08-2020 COVID-19 vaccine, ag e 12+ yr (PFIZER-BIONTECH - PURPLE TOP) NA Durbin PA-C Work Phone: [facility] 04-26-2020 influenza, high-dose , quadrivalent vaccine (FLUZONE HIGH DOSE QUADRIVALENT) NA Durbin PA-C Work Phone: [facility] 04-13-[address] Brian Mackenzie III Work Phone: [facility] 04-24-2018 influenza, high dose seasonal, preservative-free NA Durbin PA-C Work Phone: [facility] 05-14-2017 influenza, high dose seasonal, preservative-free NA Durbin PA-C Work Phone: [facility] 05-10-2016 pneumococcal conjuga te vaccine, 13 valent NA Durbin PA-C Work Phone: [facility] 05-10-2016 tetanus toxoid, redu lane diphtheria toxoid, and acellular pertussis vaccine, adsorbed NA Durbin PA-C Work Phone: [facility] 04-29-[address] Brian Mackenzie III Work Phone: [facility] 03-27-2008 pneumococcal polysaccharide vaccine, 23 valent NA Durbin PA-C Work Phone: [facility] Work Phone: Payers Date Payer Category Payer Self-pay [id number] 2017 Medicare (Managed Care) PRIMETIM E [id number] 2017 Unknown PRIMETIME PRIMET [place] HMO POS [id number] 2017-Present [phone] [address] [place] [address] [facility] [id number] 2017 Unknown PRIMETIME PRIMET [place] HMO POS [id number] 2017-Present [phone] [address] [place] [address] HMO [id number] 2009 Unknown [id number] Unknown [id number]. 2.462 Unknown [id number] [id number]. 2.462 Unknown [id number] [id number]. 2.462 Unknown [id number] [id number]. 2.462 Unknown [id number] [id number]. 2.462 Unknown [id number] [id number]. 2.462 Unknown [id number] [id number]. 2.462 Unknown [id number] 2.16.840.1.530858.3.579. 2.462 Unknown [id number] 2.16.840.1.362092.3.579. 2.462 Unknown [id number] 2.16.840.1.540604.3.579. 2.462 Unknown [id number] 2.16.840.1.290742.3.579. 2.462 Unknown [id number] [id number]. 2.462 Unknown [id number] [id number]. 2.462 Unknown [id number] [id number]. 2.462 Unknown [id number] [id number]. 2.462 Unknown [id number] [id number]. 2.462 Social History Date Type Detail Facility Start: 07-11-2017 End: 09-07-2024 Tobacco smoking status NHIS Ex-smoker [facility] Work Phone: Start: 12-19-2021 End: 09-19-2024 Alcohol intake Current drinker of alcohol (finding) [facility] Start: 1935 Sex Assigned At Not on file [facility] Start: 12-13-2021 End: 12-23-2021 Exposure to SARS-CoV-2 (event) Not sure [facility] Start: 02-08-2022 End: 08-01-2023 Tobacco smoking status MTIS Unknown if ever smoked [facility] Start: 08-26-2020 Occasional [facility] Start: 08-26-2020 None [facility] Start: 08-26-2020 Spouse/ Signif icant Other [facility] Start: 08-26-2020 Non-smoker [facility] Start: 1935 Sex Assigned At Male [facility] History of tobacco use Current smoker [facility] Start: 07-11-2017 End: 11-27-2022 Tobacco use and exposure Smokeless tobacco non-user [facility] Start: 11-27-2022 Tobacco Comment quit [address] [facility] Start: 12-22-2022 End: 02-08-2023 History of Social function [facility] Start: 12-22-2022 End: 02-08-2023 Tobacco use panel [facility] Adult Depression Screening Assessment 0 [facility] Goals Date Patient Goal Desired Activity /State Functional Status Date Assessment Result Facility 09-15-2024 Functional status Chair [facility] Work Phone: 08-04-2023 Functional status Ambulates [facility] Work Phone: 09-21-2017 Are you deaf, or do you have serious difficulty hearing No 09/21/2017 1:31 PM Brian Whitman III, MD No [facility] 09-21-2017 Are you blind, or do you have serious difficulty seeing, even when wearing glasses No 09/21/2017 1:31 PM Brian Whitman III, MD No [facility] 09-21-2017 Do you have serious difficulty walking or climbing stairs No 09/21/2017 1:31 PM Brian Whitman III, MD No [facility] 09-21-2017 Do you have difficul ty dressing or bathing No 09/21/2017 1:31 PM Brian Whitman III, MD No [facility] 09-21-2017 Because of a physica l, mental, or emotional condition, do you have difficulty doing errands alone such as visiting a physician's office or shopping No 09/21/2017 1:31 PM Brian Whitman III, MD [facility] Mental Status Date Assessment Result Facility 09-15-2024 Cognitive function Voice/Name [facility] Work Phone: 08-03-2023 Cognitive function Voice/Name [facility] Work Phone: 08-01-2023 Cognitive function Level Of Cons ciousness Awake;Alert;Appropriate;Fol lows Commands [facility] Work Phone: 09-21-2017 Because of a physica l, mental, or emotional condition, do you have serious difficulty concentrating, remembering, or making decisions No 09/21/2017 1:31 PM Brian Whitman III, MD [facility] Clinical Notes 08-30-2017 to 10-31-2024 Telephone Encounter - Jaqueline Andre RN - 10/31/2024 3:29 PM EDTTelephone Encounter - Jaqueline Andre RN - 10/31/2024 3:29 PM EDTTelephone Encounter - Shira Mcgill RN - 10/27/2024 5:42 PM EDT Note Date & Type Note Facility 10-31-2024 Telephone encounter Note Palliative Medicine Referral Assessment Referral Accepted: No, Reason for Denial: Chart reviewed, pal med order meant for [facility] in [place]. Jaqueline Andre RN October 31, 2024 [facility] 10-31-2024 Miscellaneous Notes Palliative Medicine Referral Assessment Referral Accepted: No, Reason for Denial: Chart reviewed, pal med order meant for [facility] in [place]. Jaqueline Andre RN October 31, 2024 documented in this encounter [facility] 10-27-2024 Telephone encounter Note Pts daughter Pili called back in and reports Pt was never supposed to get call about Palliative care. I let her know there was nothing in chart or note stating that Pt is not to receive calls or a call about this issue. She states Pt is confused and now she has to deal with the mess. I let her know I left a message on her brothers phone number as well. [facility] 10-27-2024 Miscellaneous Notes Pts daughter Pili called back in and reports Pt was never supposed to get call about Palliative care. I let her know there was nothing in chart or note stating that Pt is not to receive calls or a call about this issue. She states Pt is confused and now she has to deal with the mess. I let her know I left a message on her brothers phone number as well. Pt called and is notified of providers message. Pt voices understanding and states he does not want palliative care. I told Pt he should talk it over with his family. Called and left a detailed voicemail notifying patient's Son Quincy of providers message and Pts reply. Clinic phone number was left in case he had any questions, or talked the Pt into accepting palliative care. Shira Mcgill RN Please ask patient if he wants a palliative care consult? Palliative care is not end-of-life care but symptom management and chronic disease. Consult placed if patient wishes to be referred. Rohan with [facility] calls to report family is requesting order for palliative care. Fax order to [facility] in [place]. Rohan also reports he saw pt today and is extending nurse to once a week x 2 weeks. Pt will then be discharged from Nursing. Rohan reports that Pulmonary gave new dx for pt of COPD and pulmonary htn. Amita Kim LPN documented in this encounter [facility] 10-27-2024 Telephone encounter Note Pt called and is notified of providers message. Pt voices understanding and states he does not want palliative care. I told Pt he should talk it over with his family. Called and left a detailed voicemail notifying patient's Son Quincy of providers message and Pts reply. Clinic phone number was left in case he had any questions, or talked the Pt into accepting palliative care. Shira Mcgill, RN [facility] 10-27-2024 Telephone encounter Note Please ask patient if he wants a palliative care consult? Palliative care is not end-of-life care but symptom management and chronic disease. Consult placed if patient wishes to be referred. [facility] 10-27-2024 Telephone encounter Note Rohan with [facility] calls to report family is requesting order for palliative care. Fax order to [facility] in [place]. Rohan also reports he saw pt today and is extending nurse to once a week x 2 weeks. Pt will then be discharged from Nursing. Rohan reports that Pulmonary gave new dx for pt of COPD and pulmonary htn. Amita Kim LPN [facility] 10-15-2024 Telephone encounter Note Paulino- nurse- [facility]- reports he did patient eval today and will extend HHC visits to 1 x week for 2 weeks. Pt is still on 4 L O2 after pneumonia. Pt will see pulm tomorrow. [facility] 10-15-2024 Miscellaneous Notes Paulino- nurse- [facility]- reports he did patient eval today and will extend HHC visits to 1 x week for 2 weeks. Pt is still on 4 L O2 after pneumonia. Pt will see pulm tomorrow. documented in this encounter [facility] 10-03-2024 Telephone encounter Note Detailed message left on secure line for Jamie [facility] Shirley Rivera MA October 03, 2024 3:56 PM [facility] 10-03-2024 Miscellaneous Notes Detailed message left on secure line for Jamie [facility] Shirley Rivera MA October 03, 2024 3:56 PM Yes. Please increase O2 to 4l. Thank you for the recert. Jamie with [facility] is calling due to he saw patient today and has 2 things: 1) is they are going to re-certify patient for once weekly visits for the next 2 weeks and then re-evaluate due to still unable to wean O2 2) patient is on 3L O2 and at rest stats are 91%. with activity on 3L patients stats fall to the mid 80's. Lungs are clear, still has a very infrequent dry cough, but O2 still not good. Patient is scheduled to see pulm on 10/16/24. HH nurse is wondering if patient should increase O2 to 4L with activity, or should he have a round of steroids, or if anything should be done at this time. Patient is anxious to get off of oxygen due to he is a very active person. please review and advise, Jamie needs called back with information. documented in this encounter [facility] 10-03-2024 Telephone encounter Note Yes. Please increase O2 to 4l. Thank you for the recert. [facility] 10-03-2024 Telephone encounter Note Jamie with [facility] is calling due to he saw patient today and has 2 things: 1) is they are going to re-certify patient for once weekly visits for the next 2 weeks and then re-evaluate due to still unable to wean O2 2) patient is on 3L O2 and at rest stats are 91%. with activity on 3L patients stats fall to the mid 80's. Lungs are clear, still has a very infrequent dry cough, but O2 still not good. Patient is scheduled to see pulm on 10/16/24. nurse is wondering if patient should increase O2 to 4L with activity, or should he have a round of steroids, or if anything should be done at this time. Patient is anxious to get off of oxygen due to he is a very active person. please review and advise, Jamie needs called back with information. [facility] 09-19-2024 Telephone encounter Note Sounds good. Agree. [facility] 09-19-2024 Miscellaneous Notes Sounds good. Agree. Rohan calling with [facility] Physical Therapy with plan of care for patient. Pt will be seen 1x per week for 4 weeks for functional mobility training. No call back needed if provider agreeable. Whit Sheridan RN documented in this encounter [facility] 09-19-2024 Instructions Brigitte Segal APRN.CNP - 09/19/2024 3:24 PM EST 1) Mirtazapine 7.5 mg at bedtime for sleep 2) Follow up in 6 months documented in this encounter [facility] 09-19-2024 Note HNO ID: [id number] Author: BRIGITTE SEGAL APRN.CNP Service: ? Author Type: Nurse Practitioner Type: Progress Notes Filed: 09/19/2024 15:25 Note Text: This is a 88 year old male who presents today with: Patient presents with: Hospital F/U HISTORY OF PRESENT ILLNESS: Clark Lyles is a 88 year old male. Patient presents with: Hospital F/U Went to the hospital with hypoxia and encephalopathy. Treated while hospital with antibiotics. Also home with oxygen continuous., Eating ok.Taking Boost. No fever or chills Drinking not as good Bowels and bladder moving ok. Sleep is not Feels tired. Rib pain- from falls PAST MEDICAL HISTORY: PAST MEDICAL HISTORY Diagnosis Date Acute gastritis [...] lipoma performed by Dr. Robe Mackenzie at [facility] REVSC OPN/PRQ FEM/POP W/STNT/ANGIOP SM VSL 03-18-14 RPR 1ST INGUN HRNA AGE 7 YRS/> REDUCIBLE Hernia repair, inguinal ALLERGIES Lisinopril and Sulfa (Sulfonamide Antibiotics) MEDICATIONS Current Outpatient Medications Medication Sig amLODIPine (NORVASC) 10 mg tablet Take 1 tablet by mouth once daily. clopidogrel (PLAVIX) 75 mg tablet Take 1 tablet by mouth once daily. atorvastatin (LIPITOR) 10 mg tablet Take 1 tablet by mouth once daily. citalopram (CELEXA) 20 mg tablet Take 1 tablet by mouth once daily. finasteride (PROSCAR) 5 mg tablet Take 1 tablet by mouth once daily. hydroCHLOROthiazide 25 mg tablet Take 0.5 tablets by mouth once daily. metoprolol succinate ER (TOPROL XL) 25 mg 24 hr tablet Take 1 tablet by mouth once daily. pantoprazole DR (PROTONIX) 40 mg tablet Take 1 tablet by mouth once daily. tamsulosin (FLOMAX) 0.4 mg Take 2 capsules by mouth once daily. Lactobacillus acidophilus (PROBIOTIC ACIDOPHILUS ORAL) Take by mouth. nitroglycerin sublingual (NITROQUICK) 0.4 mg SL tablet Dissolve 1 tablet under the tongue every 5 minutes as needed for Chest Pain. MULTIVITAMIN (MULTIPLE VITAMINS ORAL) Take by mouth once daily. COMPLEX C SR 500 MG-25 MG-25 MG TAB 2 tabs daily No current facility-administered medications for this visit. FAMILY HISTORY Problem Relation Age of Onset Hypertension Mother Stroke Mother GI Father Stroke Father Social History Tobacco Use Smoking status: Former Smokeless tobacco: Never Tobacco comments: quit 1999 Vaping Use Vaping status: Never Used Substance Use Topics Alcohol use: Yes Comment: seldom Drug use: No EXAM: BP 128/62 Pulse 80 Temp 37.1 ?C (98.7 ?F) (Left Tympanic) Wt 72.6 kg (160 lb) SpO2 90% BMI 22.96 kg/m? PHYSICAL EXAM: Physical Exam Vitals reviewed. Constitutional: Appearance: Normal appearance. HENT: Head: Normocephalic. Cardiovascular: Rate and Rhythm: Normal rate and regular rhythm. Pulses: Normal pulses. Heart sounds: Normal heart sounds. Pulmonary: Effort: Pulmonary effort is normal. Breath sounds: Normal breath sounds. Abdominal: General: Bowel sounds are normal. Palpations: Abdomen is soft. Tenderness: There is no abdominal tenderness. There is no guarding or rebound. Musculoskeletal: General: Normal range of motion. Comments: Generalized weakness, presents in a wheelchair. Moves all ext. Rib pain from falls Skin: General: Skin is warm and dry. Neurological: Mental Status: He is alert and oriented to person, place, and time. LABS: ASSESSMENT/PLAN: 1. Chronic insomnia - ICD9: 780.52, ICD10: F51.04 (primary diagnosis) Will add for sleep - MIRTAZAPINE 7.5 MG TABLET 2. Benign prostatic hyperplasia with nocturia - ICD9: 600.01, 788.43, ICD10: N40.1, R35.1 Stable on [place] - TAMSULOSIN 0.4 MG CAPSULE 3. Screening for depression - ICD9: V79.0, ICD10: Z13.31 Stable - DEPRESSION SCREENING 4. Hyperlipidemia LDL goal <100 - ICD9: 272.4, ICD10: E78.5 - Controlled - Counseled on healthy diet and regular exercise 5. Essential hypertension, benign - ICD9: 401.1, ICD10: I10 - Controlled - Recommend home blood pressure monitoring, to bring results to next visit - Encouraged sodium restriction, DASH or Mediterranean diet - Recommend regular aerobic exercise 6. Parkinson's disease with (more content not included)... [facility] 09-19-2024 History of Presen t illness Narrative This is a 88 year old male who presents today with: Patient presents with: Hospital F/U HISTORY OF PRESENT ILLNESS: Clark Lyles is a 88 year old male. Patient presents with: Hospital F/U Went to the hospital with hypoxia and encephalopathy. Treated while hospital with antibiotics. Also home with oxygen continuous., Eating ok.Taking Boost. No fever or chills Drinking not as good Bowels and bladder moving ok. Sleep is not Feels tired. Rib pain- from falls PAST MEDICAL HISTORY: PAST MEDICAL HISTORY Diagnosis Date Acute gastritis [...] lipoma performed by Dr. Robe Mackenzie at [facility] REVSC OPN/PRQ FEM/POP W/STNT/ANGIOP SM VSL 03-18-14 RPR 1ST INGUN HRNA AGE 7 YRS/> REDUCIBLE Hernia repair, inguinal ALLERGIES Lisinopril and Sulfa (Sulfonamide Antibiotics) MEDICATIONS Current Outpatient Medications Medication Sig amLODIPine (NORVASC) 10 mg tablet Take 1 tablet by mouth once daily. clopidogrel (PLAVIX) 75 mg tablet Take 1 tablet by mouth once daily. atorvastatin (LIPITOR) 10 mg tablet Take 1 tablet by mouth once daily. citalopram (CELEXA) 20 mg tablet Take 1 tablet by mouth once daily. finasteride (PROSCAR) 5 mg tablet Take 1 tablet by mouth once daily. hydroCHLOROthiazide 25 mg tablet Take 0.5 tablets by mouth once daily. metoprolol succinate ER (TOPROL XL) 25 mg 24 hr tablet Take 1 tablet by mouth once daily. pantoprazole DR (PROTONIX) 40 mg tablet Take 1 tablet by mouth once daily. tamsulosin (FLOMAX) 0.4 mg Take 2 capsules by mouth once daily. Lactobacillus acidophilus (PROBIOTIC ACIDOPHILUS ORAL) Take by mouth. nitroglycerin sublingual (NITROQUICK) 0.4 mg SL tablet Dissolve 1 tablet under the tongue every 5 minutes as needed for Chest Pain. MULTIVITAMIN (MULTIPLE VITAMINS ORAL) Take by mouth once daily. COMPLEX C SR 500 MG-25 MG-25 MG TAB 2 tabs daily No current facility-administered medications for this visit. FAMILY HISTORY Problem Relation Age of Onset Hypertension Mother Stroke Mother GI Father Stroke Father Social History Tobacco Use Smoking status: Former Smokeless tobacco: Never Tobacco comments: quit 1999 Vaping Use Vaping status: Never Used Substance Use Topics Alcohol use: Yes Comment: seldom Drug use: No EXAM: BP 128/62 Pulse 80 Temp 37.1 C (98.7 F) (Left Tympanic) Wt 72.6 kg (160 lb) SpO2 90% BMI 22.96 kg/m PHYSICAL EXAM: Physical Exam Vitals reviewed. Constitutional: Appearance: Normal appearance. HENT: Head: Normocephalic. Cardiovascular: Rate and Rhythm: Normal rate and regular rhythm. Pulses: Normal pulses. Heart sounds: Normal heart sounds. Pulmonary: Effort: Pulmonary effort is normal. Breath sounds: Normal breath sounds. Abdominal: General: Bowel sounds are normal. Palpations: Abdomen is soft. Tenderness: There is no abdominal tenderness. There is no guarding or rebound. Musculoskeletal: General: Normal range of motion. Comments: Generalized weakness, presents in a wheelchair. Moves all ext. Rib pain from falls Skin: General: Skin is warm and dry. Neurological: Mental Status: He is alert and oriented to person, place, and time. LABS: ASSESSMENT/PLAN: 1. Chronic insomnia - ICD9: 780.52, ICD10: F51.04 (primary diagnosis) Will add for sleep - MIRTAZAPINE 7.5 MG TABLET 2. Benign prostatic hyperplasia with nocturia - ICD9: 600.01, 788.43, ICD10: N40.1, R35.1 Stable on [place] - TAMSULOSIN 0.4 MG CAPSULE 3. Screening for depression - ICD9: V79.0, ICD10: Z13.31 Stable - DEPRESSION SCREENING 4. Hyperlipidemia LDL goal <100 - ICD9: 272.4, ICD10: E78.5 - Controlled - Counseled on healthy diet and regular exercise 5. Essential hypertension, benign - ICD9: 401.1, ICD10: I10 - Controlled - Recommend home blood pressure monitoring, to bring results to next visit - Encouraged sodium restriction, DASH or Mediterranean diet - Recommend regular aerobic exercise 6. Parkinson's disease without dyskinesia, unspecified whether manifestations fluctuate (HCC) - ICD9: 332.0, ICD10: G20.A1 Stable- no tremor 7. Coronary artery disease involving [place] coronary artery of [place] heart without angina pectoris - ICD9: 414.01, ICD10: I25.10 Stable 8. Acute respiratory failure with hypoxia (HCC) - ICD9: 518.81, ICD10: J96.01 Improving. Recent pneumonia - On continuous home O2 Discussed treatment plan and patient voices understanding. Patient's questions answered appropriately. Medications and potential side effects were discussed and patient voices understanding. Return to the office as scheduled or as needed for worsening/no improvement. Brigitte Segal APRN.JANET documented in this encounter [facility] 09-19-2024 Telephone encounter Note Rohan calling with [facility] Physical Therapy with plan of care for patient. Pt will be seen 1x per week for 4 weeks for functional mobility training. No call back needed if provider agreeable. Whit Sheridan, ZACKARY [facility] 09-18-2024 Telephone encounter Note HHN was not at home, just granddaughter. She did report no cough. Pt has appointment with PCP tomorrow. [facility] 09-18-2024 Miscellaneous Notes HHN was not at home, just granddaughter. She did report no cough. Pt has appointment with PCP tomorrow. Absolutely keep at 3L. Any report on lung sounds? Haley from [facility] calls and reports that granddaughter had checked on patient this morning. Patient's O2 level was in 80's on 2 Liters of oxygen. Home Health Nursing was called and O2 level was bumped up to 3 L of O2. Patient currently is 94% on 3 liters of Oxygen. Haley will contact pulmonary regards this, but is asking provider if it is ok for patient to stay on 3 Liters of oxygen? Patient has appointment scheduled with provider tomorrow 09/19/2024. Please Contact Haley back [phone]. Tracy Cedillo RN Patient will need to stay on oxygen until he follows up with pulmonary. I have not seen him since February 2024 therefore I am not really able to shed any light on his oxygen use. Not common to use oxygen for only a week. Hellen calling from [facility] to report plan of care for patient and residential will visit patient 1 time a week for 1 week and 2 times a week for 2 weeks. Mcc will work with patient on wound care (patient has skin tear to right elbow) and management of O2 levels. Hellen had no orders for wound care. Hellen cleaned wound and put on Vaseline gauze and band aid. Hellen also notes that patient is on Oxygen and thought that he was only going to be on oxygen for a week. 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 Hellen did not know if provider wanted to address Oxygen use. Patient is scheduled to see PCP 09/19/2024. No call back needed unless there are questions. Tracy Cedillo RN documented in this encounter [facility] 09-18-2024 Telephone encounter Note Absolutely keep at 3L. Any report on lung sounds? [facility] 09-18-2024 Telephone encounter Note Haley from [facility] calls and reports that granddaughter had checked on patient this morning. Patient's O2 level was in 80's on 2 Liters of oxygen. Home Health Nursing was called and O2 level was bumped up to 3 L of O2. Patient currently is 94% on 3 liters of Oxygen. Haley will contact pulmonary regards this, but is asking provider if it is ok for patient to stay on 3 Liters of oxygen? Patient has appointment scheduled with provider tomorrow 09/19/2024. Please Contact Haley back [phone]. Tracy Cedillo RN [facility] 09-18-2024 Telephone encounter Note Patient will need to stay on oxygen until he follows up with pulmonary. I have not seen him since February 2024 therefore I am not really able to shed any light on his oxygen use. Not common to use oxygen for only a week. [facility] 09-17-2024 Telephone encounter Note Hellen calling from [facility] to report plan of care for patient and residential will visit patient 1 time a week for 1 week and 2 times a week for 2 weeks. Mcc will work with patient on wound care (patient has skin tear to right elbow) and management of O2 levels. Hellen had no orders for wound care. Hellen cleaned wound and put on Vaseline gauze and band aid. Hellen also notes that patient is on Oxygen and thought that he was only going to be on oxygen for a week. 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 Hellen did not know if provider wanted to address Oxygen use. Patient is scheduled to see PCP 09/19/2024. No call back needed unless there are questions. Tracy Cedillo RN [facility] 09-15-2024 Telephone encounter Note Patient is an 88-year-old man who was admitted with episodes of confusion per the family. He had dizziness. acute CVA was ruled out but patient was found hypoxic with a pulse in the 60s. Diagnosis: Acute metabolic encephalopathy resolved Secondary to severe hypoxia. 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 I feel it would be at a low intensity as risk with sedation while on Airvo. No further testing as I do not feel that he had headaches Acute hypoxic respiratory failure started on bronchodilator and systemic steroid as well as IV antibiotics. Placed on oxygen via Airvo titrated to keep saturation greater than 90 D-dimer 1.63. CTA shows infiltrates more prominent on the right. No pulmonary emboli. Was on IV ceftriaxone, azithromycin and vancomycin at the beginning and ceftriaxone was changed to Zosyn. Urinary agents negative. Sputum culture showed normal argenis. Completed 8 days of antibiotics no further antibiotic needed Oxygenation got better but on 2 to 3 L with walking Follow-up in pulmonary clinic Elevated troponin due to demand ischemia. No additional workup at this time. Previous history of PCI patient is on recommended medications including dual antiplatelet therapy, statin, beta-becka. Discharge medication reconciliation. Follow-up with PCP in 1 to 2 weeks. WBC 14.9, hemoglobin 14.3, hematocrit 43.5, platelet count 152 Sodium 139, potassium 3.4, BUN 37, creatinine 0.84, glucose 156 Amlodipine was changed from 5 mg daily to 10 mg daily [facility] 09-15-2024 Miscellaneous Notes Patient is an 88-year-old man who was admitted with episodes of confusion per the family. He had dizziness. acute CVA was ruled out but patient was found hypoxic with a pulse in the 60s. Diagnosis: Acute metabolic encephalopathy resolved Secondary to severe hypoxia. 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 I feel it would be at a low intensity as risk with sedation while on Airvo. No further testing as I do not feel that he had headaches Acute hypoxic respiratory failure started on bronchodilator and systemic steroid as well as IV antibiotics. Placed on oxygen via Airvo titrated to keep saturation greater than 90 D-dimer 1.63. CTA shows infiltrates more prominent on the right. No pulmonary emboli. Was on IV ceftriaxone, azithromycin and vancomycin at the beginning and ceftriaxone was changed to Zosyn. Urinary agents negative. Sputum culture showed normal argenis. Completed 8 days of antibiotics no further antibiotic needed Oxygenation got better but on 2 to 3 L with walking Follow-up in pulmonary clinic Elevated troponin due to demand ischemia. No additional workup at this time. Previous history of PCI patient is on recommended medications including dual antiplatelet therapy, statin, beta-becka. Discharge medication reconciliation. Follow-up with PCP in 1 to 2 weeks. WBC 14.9, hemoglobin 14.3, hematocrit 43.5, platelet count 152 Sodium 139, potassium 3.4, BUN 37, creatinine 0.84, glucose 156 Amlodipine was changed from 5 mg daily to 10 mg daily Yes. Of course Rochelle from [facility] calls and states that patient is being discharged from [facility]U on 09/05/2024 with the diagnosis of hypoxia and acute respiratory failure. Rochelle asking if provider willing to follow patient with orders for residential, physical therapy, occupational therapy and social work. If agreeable please give Rochelle a call back . Thank you, Tracy Cedillo RN documented in this encounter [facility] 09-15-2024 Telephone encounter Note Yes. Of course [facility] 09-15-2024 Telephone encounter Note Rochelle from [facility] calls and states that patient is being discharged [facility] on 09/[facility]24 with the diagnosis of hypoxia and acute respiratory failure. Rochelle asking if provider willing to follow patient with orders for residential, physical therapy, occupational therapy and social work. If agreeable please give Rochelle a call back . Thank you, Tracy Cedillo RN [facility] 09-15-2024 Note [facility] Medical Records Department [address] [place] [id number] Discharge Summary 09/15/24 0952 MR#: [id number] Acct: [id number] Name: CLARK LYLES Rep #: [id number] : [id number] 88 From: John Soliz MD PCP: MARIANA Humphreys Status:ADM IN Location: [place] [address] Providers Date of Admission: 09/07/24 Date of Discharge: 09/15/24 Primary Care Physician: MARIANA Humphreys Reason For Visit: HYPOXIA Diagnosis Discharge Diagnosis (1) Hypoxia: Status: Acute Code(s): R09.02 - Hypoxemia Plan 88-year-old male was admitted with episodes of confusion as per the family. Patient had dizziness and a prior admission. He also had slurring of his speech. Acute CVA was ruled out but patient was found hypoxic with pulse ox in 60s. Acute metabolic encephalopathy * Resolved. * Secondary to severe hypoxia. 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 * Neurology recommending MRI head w/o contrast. Pt requesting something to calm him for the MRI. I feel it would be of low utility as risky with sedation while on Airvo. No further testing as I do not feel he had headaches. Acute hypoxic respiratory failure * Patient was started on bronchodilator treatment, systemic steroid as well as antibiotic therapy. * Patient placed on oxygen via Airvo titrated to keep saturation greater than 90. * D-dimer 1.63. CTA shows infiltrates, more prominent on the right. No PE * 's patient had antibiotic IV ceftriaxone, azithromycin and vancomycin in the beginning. Then ceftriaxone was changed to Zosyn on 09/11. Urinary antigens were negative. His sputum culture shows mixed normal respiratory argenis. There patient completed 8 days of antibiotic therefore does not need further. No fever * Oxygenation got better but distillates of oxygen about 2 to 3 L on walking. * Follow-up in pulmonary clinic. Patient had remote history of smoking. Elevated troponin * Likely due to demand ischemia. No additional work up at this time. Chronic conditions * Coronary artery disease??? With previous history of PCI patient is on recommended medications including dual antiplatelet therapy statin and beta-blockers * Hypertension- Blood pressure controlled, home medications continued with dose adjustment as needed * Dyslipidemia-Patient is on statin therapy, continued at home dose * BPH with lower urinary obstruction- Patient treated with finasteride * GERD-Continue PPI * Depression/anxiety-Continue trazodone, citalopram, BuSpar DVT prophylaxis- On enoxaparin Discharge medication reconciliation done. Discharge follow-up instructions completed. Discharge process discussed with the patient and all questions were answered to patient's satisfaction. Follow with PCP in 1 to 2 weeks. Home qualification oxygen ordered. Total time spent, exact 35 minutes on discharge meds reconciliation, examination, coordination of care with nurses and ancillary staff, review of imaging and blood test and discussion with the patient on follow-up instructions. Medications at Discharge Home Medications citalopram 20 mg tablet 20 mg PO DAILY DEPRESSION 03/17/14 multivitamin 1 ea PO DAILY HEALTH MINENANCE 05/16/17 tamsulosin 0.4 mg capsule 0.4 mg PO DAILY PROSTATE 09/04/19 ascorbic acid (vitamin C) 1,000 mg tablet 1,000 mg PO DAILY SUPPLEMENT 01/18/20 atorvastatin 10 mg tablet 10 mg PO DAILY CHOLESTEROL 08/25/20 clopidogrel 75 mg tablet 75 mg PO DAILY BLOOD THINNER 08/25/20 finasteride 5 mg tablet 5 mg PO DAILY PROSTATE 08/26/20 metoprolol succinate 25 mg tablet,extended release 24 hr 25 mg PO DAILY BLOOD PRESSURE 08/01/23 Lactobacillus acidophilus 1 billion cell capsule 1,000 mmu cells PO DAILY #30 caps 08/04/23 hydrochlorothiazide 25 mg tablet 12.5 mg PO DAILY BLOOD PRESSURE 09/07/24 pantoprazole 40 mg tablet,delayed release 40 mg PO DAILY gerd 09/07/24 amlodipine 5 mg tablet 10 mg (2 x 5 mg) PO DAILY bp 30 days #0 tabs 09/15/24 Physical Exam Narrative Seen and examined. No significant overnight issues. Patient is doing well. On room air On walking his oxygenation then return to the home and sit down dropped. Repeat oxygen testing ordered Physical exam General: Alert, Oriented x3, Cooperative HEENT: Atraumatic, PERRLA, EOMI, Normocephalic Oral: No Gingival or Mucosal Lesions/ Ulcerations Neck: Supple, No JVD, Negative Carotid Bruits Chest wall/Lungs: Air entry diminished in bilateral lung bases. No crepitation/rhonchi. Clear Cardiovascular: Sinus, Normal S1, Normal S2, systolic murmur right second ICS Abdomen: Bowel Sounds Present, Soft, Non Tender, Non-Distended : No dysuria. No renal angle tenderness. No suprapubic tenderness. Extremities: No edema, Capillary Refill Less than 3 Seconds Skin: No rashes, No breakdown Musculoskeletal: No Tenderness to Palpation of Joints or (more content not included)... [facility] 09-09-2024 Telephone encounter Note Patient was admitted to [facility] on September 07 to 2024 for altered mental status. He has a history of hypertension, previous tobacco use, coronary artery disease with previous angioplasty brought to the emergency room for episode of confusion. He was complaining of dizziness the day before. His son stayed with him throughout the whole night. Daughter found patient to be confused in the morning and slurring his words. Brought to the emergency department. Acute CVA was ruled out. He was found to be significantly hypoxic with an oxygen saturation in the 60s. Normal invasive ventilation Airvo with improvement in his oxygen saturation as well as mentation. Chest x-ray came back unremarkable and patient was admitted for further management. Patient has a history of coronary artery disease, peripheral vascular disease. WBC 12.7, hemoglobin 15.8, hematocrit 46.6, platelet count 195 Sodium 138, potassium 3.3, BUN 20, creatinine 1.04, glucose 77 Brain natruretic peptide 221.1 Urine had occult blood, ketones, rare bacteria, hyaline casts, oxalate crystal. Chest x-ray showed no acute radiographic process CT of the brain showed no CT evidence of acute intracranial pathology X-ray of the elbow shows soft tissue swelling bilaterally. No acute radiographic process. 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 Did improve with oxygen supplementation Acute hypoxic respiratory failure etiology unclear. Started on steroid as well as bronchodilator. Oxygen supplementation. D-dimer. Elevated troponin suspected to be secondary to severe hypoxia. Patient is a DNR CC with no intubation. [facility] 09-09-2024 Miscellaneous Notes Patient was admitted to [facility] on September 07 to 2024 for altered mental status. He has a history of hypertension, previous tobacco use, coronary artery disease with previous angioplasty brought to the emergency room for episode of confusion. He was complaining of dizziness the day before. His son stayed with him throughout the whole night. Daughter found patient to be confused in the morning and slurring his words. Brought to the emergency department. Acute CVA was ruled out. He was found to be significantly hypoxic with an oxygen saturation in the 60s. Normal invasive ventilation Airvo with improvement in his oxygen saturation as well as mentation. Chest x-ray came back unremarkable and patient was admitted for further management. Patient has a history of coronary artery disease, peripheral vascular disease. WBC 12.7, hemoglobin 15.8, hematocrit 46.6, platelet count 195 Sodium 138, potassium 3.3, BUN 20, creatinine 1.04, glucose 77 Brain natruretic peptide 221.1 Urine had occult blood, ketones, rare bacteria, hyaline casts, oxalate crystal. Chest x-ray showed no acute radiographic process CT of the brain showed no CT evidence of acute intracranial pathology X-ray of the elbow shows soft tissue swelling bilaterally. No acute radiographic process. 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 Did improve with oxygen supplementation Acute hypoxic respiratory failure etiology unclear. Started on steroid as well as bronchodilator. Oxygen supplementation. D-dimer. Elevated troponin suspected to be secondary to severe hypoxia. Patient is a DNR CC with no intubation. documented in this encounter [facility] 09-07-2024 Evaluation note Diagnosis Onset Date Resolution Hypoxia inactive September 07, 2024 12:42pm Pulmonary hypertension acute [facility] 2024 12:57pm COPD (chronic obstructive pulmonary disease) chronic October 16, 2024 12:57pm [facility] Work Phone: [phone]) 790-673908-29-2024 Instructions* Patient Instructions* Brigitte Segal APRN.CNP - 03/27/2024 8:18 AM EDT 1) eliminate omeprazole but continue pantoprazole 2) discontinue trazodone, replaced with Tylenol PM 3) follow up in Jun. as scheduled [facility] NoteHNO ID: [id number] Author: BRIGITTE SEGAL APRN.CNP Service: ? Author Type: Clinical Nurse Specialist Type: Progress Notes Filed: 03/27/2024 08:28 Note Text: This is a 88 year old male who presents today with: Patient presents with: Follow Up Abdominal Pain: Follow up HISTORY OF PRESENT ILLNESS: Clark Lyles is a 88 year old male. Patient presents with: Follow Up Abdominal Pain: Follow up Abdomen is doing better. First thing in the morning just a little discomfort left, resolves when up and moving around. No N/V. Bowels moving ok. No fever or chills. Had been losing weight but now back up a couple pounds. Doesn't sleep well. Goes to bed between 9 AND 10 pm. Does not fall asleep right away. Goes to a couple times at night, but can fall back asleep pretty quick. Taking Tylenol PM. PAST MEDICAL HISTORY: PAST MEDICAL HISTORY No date: Acute gastritis 01/05/2009: Anxiety state 03/17/2013: BPH (benign prostatic hyperplasia) No date: Diverticulosis of colon (without mention of hemorrhage) Comment: Diverticulosis 01/08/2006: Essential hypertension, benign 01/10/2011: GERD (gastroesophageal reflux disease) No date: Hemangioma of other sites Comment: liver 05/10/2016: Hyperbilirubinemia 03/28/2016: Hyperlipidemia LDL goal <100 07/11/2017: Parkinson's disease (HCC) PAST SURGICAL HISTORY 05/27/2013: COLONOSCOPY FLX DX W/COLLJ SPEC WHEN PFRMD Comment: Colonoscopy 01/19/2020: COLONOSCOPY FLX DX W/COLLJ SPEC WHEN PFRMD No date: ESOPHAGOGASTRODUODENOSCOPY TRANSORAL DIAGNOSTIC Comment: EGD 05/27/2013: ESOPHAGOGASTRODUODENOSCOPY TRANSORAL DIAGNOSTIC Comment: EGD 01/19/2020: ESOPHAGOGASTRODUODENOSCOPY TRANSORAL DIAGNOSTIC 05/22/2017: PAST SURGICAL HISTORY OF; Right Comment: Thu R Inguinal Herniorrhaphy with excison cord lipoma performed by Dr. Robe Mackenzie at [facility] 03-18-14: REVSC OPN/PRQ FEM/POP W/STNT/ANGIOP SM VSL Comment: No date: RPR 1ST INGUN HRNA AGE 5 YRS/> REDUCIBLE Comment: Hernia repair, inguinal ALLERGIES Lisinopril and Sulfa (Sulfonamide Antibiotics) MEDICATIONS Current Outpatient Medications Medication Sig clopidogrel (PLAVIX) 75 mg tablet Take 1 tablet by mouth once daily. amLODIPine (NORVASC) 5 mg tablet Take 1 tablet by mouth once daily. pantoprazole DR (PROTONIX) 40 mg tablet Take 1 tablet by mouth once daily. tamsulosin (FLOMAX) 0.4 mg Take 2 capsules by mouth once daily. metoprolol succinate ER (TOPROL XL) 25 mg 24 hr tablet Take 1 tablet by mouth once daily. traZODone (DESYREL) 50 mg tablet Take 1 tablet by mouth daily at bedtime. Lactobacillus acidophilus (PROBIOTIC ACIDOPHILUS ORAL) Take by mouth. hydroCHLOROthiazide 25 mg tablet Take 0.5 tablets by mouth once daily. finasteride (PROSCAR) 5 mg tablet Take 1 tablet by mouth once daily. atorvastatin (LIPITOR) 10 mg tablet Take 1 tablet by mouth once daily. citalopram (CELEXA) 20 mg tablet Take 1 tablet by mouth once daily. omeprazole (PRILOSEC) 40 mg capsule Take 1 capsule by mouth once daily. nitroglycerin sublingual (NITROQUICK) 0.4 mg SL tablet Dissolve 1 tablet under the tongue every 5 minutes as needed for Chest Pain. MULTIVITAMIN (MULTIPLE VITAMINS ORAL) Take by mouth once daily. COMPLEX C SR 500 MG-25 MG-25 MG TAB 2 tabs daily No current facility-administered medications for this visit. FAMILY HISTORY Problem Relation Age of Onset Hypertension Mother Stroke Mother GI Father Stroke Father Social History Tobacco Use Smoking status: Former Smokeless tobacco: Never Tobacco comments: quit 1999 Vaping Use Vaping status: Never Used Substance Use Topics Alcohol use: Yes Comment: seldom Drug use: No EXAM: BP 126/67 Pulse 63 Resp 16 Wt 68.9 kg (152 lb) SpO2 94% BMI 21.81 kg/m? PHYSICAL EXAM: General Appearance: well appearing, alert and oriented. Skin: Ecchymosis on forearms under skin, dark appearance and multiple white skin lesions from scarring. Head: normocephalic, no obvious masses, lesions, tenderness or abnormalities. Eyes: Wears glasses Neck: trachea midline, carotids normal upstroke, no bruit or thrill. Lungs: Chest rise AND fall symmetrical, Lungs clear to auscultation. No wheezing or rhonchi. No rales. Abdomen: normal bowel sounds, no mass, non-tender Heart: S1S2, no gallop, no rub, no murmur Ext: no clubbing, cyanosis or edema. Mood: bright affect, speech clear, answers questions appropriately LABS: reviewed recent labs with pt. ASSESSMENT/PLAN: 1. S/P primary angioplasty with coronary stent - ICD9: V45.82, ICD10: Z95.5 Stable. Continue medications as current. - CLOPIDOGREL 75 MG TABLET - ATORVASTATIN 10 MG TABLET - METOPROLOL SUCCINATE ER 25 MG TABLET,EXTENDED RELEASE 24 HR 2. PAD (peripheral artery disease) (HCC) - ICD9: 443.9, ICD10: I73.9 Stable. - CLOPIDOGREL 75 MG TABLET - ATORVASTATIN 10 MG TABLET 3. Hyperlipidemia LDL goal <100 - ICD9: 272.4, ICD10: E78.5 - Controlled - Counse (more content not included)...[facility]08-29-2024 History of Present illness Narrative* Brigitte Segal APRN.GANG LEADER - 03/27/2024 8:03 AM EDT This is a 88 year old male who presents today with: Patient presents with: Follow Up Abdominal Pain: Follow up HISTORY OF PRESENT ILLNESS: Clark Lyles is a 88 year old male. Patient presents with: Follow Up Abdominal Pain: Follow up Abdomen is doing better. First thing in the morning just a little discomfort left, resolves when up and moving around. No N/V. Bowels moving ok. No fever or chills. Had been losing weight but now back up a couple pounds. Doesn't sleep well. Goes to bed between 9 & 10 pm. Does not fall asleep right away. Goes to BR a couple times at night, but can fall back asleep pretty quick. Taking Tylenol PM. PAST MEDICAL HISTORY: PAST MEDICAL HISTORY No date: Acute gastritis 01/05/2009: Anxiety state 03/17/2013: BPH (benign prostatic hyperplasia) No date: Diverticulosis of colon (without mention of hemorrhage) Comment: Diverticulosis 01/08/2006: Essential hypertension, benign 01/10/2011: GERD (gastroesophageal reflux disease) No date: Hemangioma of other sites Comment: liver 05/10/2016: Hyperbilirubinemia 03/28/2016: Hyperlipidemia LDL goal <100 07/11/2017: Parkinson's disease (HCC) PAST SURGICAL HISTORY 05/27/2013: COLONOSCOPY FLX DX W/COLLJ SPEC WHEN PFRMD Comment: Colonoscopy 01/19/2020: COLONOSCOPY FLX DX W/COLLJ SPEC WHEN PFRMD No date: ESOPHAGOGASTRODUODENOSCOPY TRANSORAL DIAGNOSTIC Comment: EGD 05/27/2013: ESOPHAGOGASTRODUODENOSCOPY TRANSORAL DIAGNOSTIC Comment: EGD 01/19/2020: ESOPHAGOGASTRODUODENOSCOPY TRANSORAL DIAGNOSTIC 05/22/2017: PAST SURGICAL HISTORY OF; Right Comment: Thu R Inguinal Herniorrhaphy with excison cord lipoma performed by Dr. Robe Mackenzie at [facility] 03-18-14: REVSC OPN/PRQ FEM/POP W/STNT/ANGIOP SM VSL Comment: No date: RPR 1ST INGUN HRNA AGE 7 YRS/> REDUCIBLE Comment: Hernia repair, inguinal ALLERGIES Lisinopril and Sulfa (Sulfonamide Antibiotics) MEDICATIONS Current Outpatient Medications Medication Sig clopidogrel (PLAVIX) 75 mg tablet Take 1 tablet by mouth once daily. amLODIPine (NORVASC) 5 mg tablet Take 1 tablet by mouth once daily. pantoprazole DR (PROTONIX) 40 mg tablet Take 1 tablet by mouth once daily. tamsulosin (FLOMAX) 0.4 mg Take 2 capsules by mouth once daily. metoprolol succinate ER (TOPROL XL) 25 mg 24 hr tablet Take 1 tablet by mouth once daily. traZODone (DESYREL) 50 mg tablet Take 1 tablet by mouth daily at bedtime. Lactobacillus acidophilus (PROBIOTIC ACIDOPHILUS ORAL) Take by mouth. hydroCHLOROthiazide 25 mg tablet Take 0.5 tablets by mouth once daily. finasteride (PROSCAR) 5 mg tablet Take 1 tablet by mouth once daily. atorvastatin (LIPITOR) 10 mg tablet Take 1 tablet by mouth once daily. citalopram (CELEXA) 20 mg tablet Take 1 tablet by mouth once daily. omeprazole (PRILOSEC) 40 mg capsule Take 1 capsule by mouth once daily. nitroglycerin sublingual (NITROQUICK) 0.4 mg SL tablet Dissolve 1 tablet under the tongue every 5 minutes as needed for Chest Pain. MULTIVITAMIN (MULTIPLE VITAMINS ORAL) Take by mouth once daily. COMPLEX C SR 500 MG-25 MG-25 MG TAB 2 tabs daily No current facility-administered medications for this visit. FAMILY HISTORY Problem Relation Age of Onset Hypertension Mother Stroke Mother GI Father Stroke Father Social History Tobacco Use Smoking status: Former Smokeless tobacco: Never Tobacco comments: quit 1999 Vaping Use Vaping status: Never Used Substance Use Topics Alcohol use: Yes Comment: seldom Drug use: No EXAM: BP 126/67 Pulse 63 Resp 16 Wt 68.9 kg (152 lb) SpO2 94% BMI 21.81 kg/m PHYSICAL EXAM: General Appearance: well appearing, alert and oriented. Skin: Ecchymosis on forearms under skin, dark appearance and multiple white skin lesions from scarring. Head: normocephalic, no obvious masses, lesions, tenderness or abnormalities. Eyes: Wears glasses Neck: trachea midline, carotids normal upstroke, no bruit or thrill. Lungs: Chest rise & fall symmetrical, Lungs clear to auscultation. No wheezing or rhonchi. No rales. Abdomen: normal bowel sounds, no mass, non-tender Heart: S1S2, no gallop, no rub, no murmur Ext: no clubbing, cyanosis or edema. Mood: bright affect, speech clear, answers questions appropriately LABS: reviewed recent labs with pt. ASSESSMENT/PLAN: 1. S/P primary angioplasty with coronary stent - ICD9: V45.82, ICD10: Z95.5 Stable. Continue medications as current. - CLOPIDOGREL 75 MG TABLET - ATORVASTATIN 10 MG TABLET - METOPROLOL SUCCINATE ER 25 MG TABLET,EXTENDED RELEASE 24 HR 2. PAD (peripheral artery disease) (HCC) - ICD9: 443.9, ICD10: I73.9 Stable. - CLOPIDOGREL 75 MG TABLET - ATORVASTATIN 10 MG TABLET 3. Hyperlipidemia LDL goal <100 - ICD9: 272.4, ICD10: E78.5 - Controlled - Counseled on healthy diet and regular exercise - ATORVASTATIN 10 MG TABLET continued 4. Anxiety state - ICD9: 300.00, ICD10: F41.1 Stable. States that he just misses his . - CITALOPRAM 20 MG TABLET 5. Benign prostatic hyperplasia with nocturia - ICD9: 600.01, 788.43, ICD10: N40.1, R35.1 Stable. - FINASTERIDE 5 MG TABLET & tamsulosin 6. Essential hypertension, benign - ICD9: 401.1, ICD10: I10 - Controlled - Recommend home blood pressure monitoring, to bring results to next visit - Encouraged sodium restriction, DASH or Mediterranean diet - Recommend regular aerobic exercise - HYDROCHLOROTHIAZIDE 25 MG TABLET 7. Left sided abdominal pain - ICD9: 789.09, ICD10: R10.9 - Improved - PANTOPRAZOLE 40 MG TABLET,DELAYED RELEASE in place of omeprazole Discussed treatment plan and patient voices understanding. Patient's questions answered appropriately. Medications and potential side effects were discussed and patient voices understanding. Return to the office as scheduled or as needed for worsening/no improvement. Brigitte Segal APRN.JANET [facility] Telephone encounter Note * Telephone Encounter - Renetta Velez LPN - 03/13/2024 10:12 AM EDT Daughter called to reports pt hs 3 pills left of medication below. Asking to please expedite this. The patient has been identified by name and date of : Yes Caregiver verified no other encounters exist for this prescription request: Yes Caregiver confirmed with patient/requestor that no other refills are due, in the near future, with this provider at this time: Yes The last office visit in the department: 02/25/2024 Does the patient have a future office visit with this provider/department: Yes 03/27/2024 Requested Prescriptions Pending Prescriptions Disp Refills clopidogrel (PLAVIX) 75 mg tablet 90 tablet 3 Sig: Take 1 tablet by mouth once daily. Renetta Velez LPN March 13, 2024 10:13 AM [facility]08-15-[facility]24 Miscellaneous Notes* Telephone Encounter - Renetta Velez LPN - 03/13/2024 10:12 AM EDT Daughter called to reports pt hs 3 pills left of medication below. Asking to please expedite this. The patient has been identified by name and date of : Yes Caregiver verified no other encounters exist for this prescription request: Yes Caregiver confirmed with patient/requestor that no other refills are due, in the near future, with this provider at this time: Yes The last office visit in the department: 02/25/2024 Does the patient have a future office visit with this provider/department: Yes 03/27/2024 Requested Prescriptions Pending Prescriptions Disp Refills clopidogrel (PLAVIX) 75 mg tablet 90 tablet 3 Sig: Take 1 tablet by mouth once daily. Renetta Velez LPN March 13, 2024 10:13 AM documented in this encounterOhio State Health System07-30-2024 Telephone encounter Note * Telephone Encounter - Shirley Rivera MA - 02/26/2024 8:28 AM EDT Patient was made aware of the results. Patient verbalizes understanding. Shirley Rivera Ma [facility] Miscellaneous Notes* Telephone Encounter - Shirley Rivera MA - 02/26/2024 8:28 AM EDT Patient was made aware of the results. Patient verbalizes understanding. Shirley Rivera Ma * Telephone Encounter - Brigitte Segal APRN.CNP - 02/26/2024 8:00 AM EDT Patient does not have MyChart. Please let him know that he was negative for H. pylori the bacteria that causes ulcers. Blood counts are okay, kidney function liver function, and pancreas are all normal. Lets see how he does on the pantoprazole. documented in this encounterOhio State Health System07-30-2024 Telephone encounter Note * Telephone Encounter - Brigitte Segal APRN.CNP - 02/26/2024 8:00 AM EDT Patient does not have MyChart. Please let him know that he was negative for H. pylori the bacteria that causes ulcers. Blood counts are okay, kidney function liver function, and pancreas are all normal. Lets see how he does on the pantoprazole. [facility]-29[facility] Instructions* Patient Instructions* Brigitte Segal APRN.CNP - 02/25/2024 8:50 AM EDT 1) Check labs 2) Flagyl 500 mg 3 x day 3) Cipro 500 mg 2 x day 4) Start pantoprazole 40 mg daily 5) Follow up in 1 month documented in this encounterOhio State Health System07-29-2024 NoteHNO ID: [id number] Author: BRIGITTE SEGAL APRN.JANET Service: ? Author Type: Clinical Nurse Specialist Type: Progress Notes Filed: 02/25/2024 08:51 Note Text: This is a 88 year old male who presents today with: Patient presents with: Abdominal Pain: Pain, gas, nausea for awhile Sleep Problem HISTORY OF PRESENT ILLNESS: Clark Lyles is a 88 year old male. Patient presents with: Abdominal Pain: Pain, gas, nausea for awhile Sleep Problem Mid abdominal pain. Gas, belching. No diarrhea. Daughter had him stop aspirin. Takes Mylanta, Gas X, AND TUMS. Weight loss. No appetite. Going on for months. A lot of trouble sleeping. No fever or chills. Dull abdominal pain. Nausea. Eating resolves the pain. PAST MEDICAL HISTORY: PAST MEDICAL HISTORY Diagnosis Date Acute gastritis [...] lipoma performed by Dr. Robe Mackenzie at [facility] REVSC OPN/PRQ FEM/POP W/STNT/ANGIOP SM VSL 03-18-14 RPR 1ST INGUN HRNA AGE 7 YRS/> REDUCIBLE Hernia repair, inguinal ALLERGIES Lisinopril and Sulfa (Sulfonamide Antibiotics) MEDICATIONS Current Outpatient Medications Medication Sig tamsulosin (FLOMAX) 0.4 mg Take 2 capsules by mouth once daily. metoprolol succinate ER (TOPROL XL) 25 mg 24 hr tablet Take 1 tablet by mouth once daily. busPIRone (BUSPAR) 10 mg tablet Take 1 tablet by mouth three times a day. traZODone (DESYREL) 50 mg tablet Take 1 tablet by mouth daily at bedtime. Lactobacillus acidophilus (PROBIOTIC ACIDOPHILUS ORAL) Take by mouth. hydroCHLOROthiazide 25 mg tablet Take 0.5 tablets by mouth once daily. finasteride (PROSCAR) 5 mg tablet Take 1 tablet by mouth once daily. atorvastatin (LIPITOR) 10 mg tablet Take 1 tablet by mouth once daily. citalopram (CELEXA) 20 mg tablet Take 1 tablet by mouth once daily. omeprazole (PRILOSEC) 40 mg capsule Take 1 capsule by mouth once daily. clopidogrel (PLAVIX) 75 mg tablet Take 1 tablet by mouth once daily. MULTIVITAMIN (MULTIPLE VITAMINS ORAL) Take by mouth once daily. nitroglycerin sublingual (NITROQUICK) 0.4 mg SL tablet Dissolve 1 tablet under the tongue every 5 minutes as needed for Chest Pain. COMPLEX C SR 500 MG-25 MG-25 MG TAB 2 tabs daily No current facility-administered medications for this visit. FAMILY HISTORY Problem Relation Age of Onset Hypertension Mother Stroke Mother GI Father Stroke Father Social History Tobacco Use Smoking status: Former Smokeless tobacco: Never Tobacco comments: quit 1999 Vaping Use Vaping Use: Never used Substance Use Topics Alcohol use: Yes Comment: seldom Drug use: No EXAM: BP 148/70 Pulse 60 Resp 16 Wt 68.9 kg (152 lb) SpO2 94% BMI 21.81 kg/m? PHYSICAL EXAM: Physical Exam Vitals reviewed. Constitutional: Appearance: Normal appearance. HENT: Head: Normocephalic. Cardiovascular: Rate and Rhythm: Normal rate and regular rhythm. Pulses: Normal pulses. Heart sounds: Normal heart sounds. Pulmonary: Effort: Pulmonary effort is normal. Breath sounds: Normal breath sounds. Abdominal: General: There is no distension. Palpations: Abdomen is soft. Tenderness: There is abdominal tenderness. There is guarding. There is no rebound. Hernia: No hernia is present. Comments: Left side of colon with tenderness and guarding Musculoskeletal: General: Normal range of motion. Skin: General: Skin is warm and dry. Neurological: Mental Status: He is alert. Psychiatric: Mood and Affect: Mood normal. Behavior: Behavior normal. LABS: ASSESSMENT/PLAN: 1. Left sided abdominal pain - ICD9: 789.09, ICD10: R10.9 Differential Diagnosis includes PUD, Gastritis, and Diverticulitis - Check labs for H Pylori, CBC, CMP, amylase and lipase - Pantoprazole 40 mg daily - Start flagyl and Cipro for 5 days - Recheck in 1 month Brigitte Segal APRN.[facility] [place]07-29-2024 History of Present illness Narrative* Brigitte Segal APRN.[facility] - 02/25/2024 8:35 AM EDT This is a 88 year old male who presents today with: Patient presents with: Abdominal Pain: Pain, gas, nausea for awhile Sleep Problem HISTORY OF PRESENT ILLNESS: Clark Lyles is a 88 year old male. Patient presents with: Abdominal Pain: Pain, gas, nausea for awhile Sleep Problem Mid abdominal pain. Gas, belching. No diarrhea. Daughter had him stop aspirin. Takes Mylanta, Gas X, & TUMS. Weight loss. No appetite. Going on for months. A lot of trouble sleeping. No fever or chills. Dull abdominal pain. Nausea. Eating resolves the pain. PAST MEDICAL HISTORY: PAST MEDICAL HISTORY Diagnosis Date Acute gastritis [...] lipoma performed by Dr. Robe Mackenzie at [facility] REVSC OPN/PRQ FEM/POP W/STNT/ANGIOP SM VSL 03-18-14 RPR 1ST INGUN HRNA AGE 7 YRS/> REDUCIBLE Hernia repair, inguinal ALLERGIES Lisinopril and Sulfa (Sulfonamide Antibiotics) MEDICATIONS Current Outpatient Medications Medication Sig tamsulosin (FLOMAX) 0.4 mg Take 2 capsules by mouth once daily. metoprolol succinate ER (TOPROL XL) 25 mg 24 hr tablet Take 1 tablet by mouth once daily. busPIRone (BUSPAR) 10 mg tablet Take 1 tablet by mouth three times a day. traZODone (DESYREL) 50 mg tablet Take 1 tablet by mouth daily at bedtime. Lactobacillus acidophilus (PROBIOTIC ACIDOPHILUS ORAL) Take by mouth. hydroCHLOROthiazide 25 mg tablet Take 0.5 tablets by mouth once daily. finasteride (PROSCAR) 5 mg tablet Take 1 tablet by mouth once daily. atorvastatin (LIPITOR) 10 mg tablet Take 1 tablet by mouth once daily. citalopram (CELEXA) 20 mg tablet Take 1 tablet by mouth once daily. omeprazole (PRILOSEC) 40 mg capsule Take 1 capsule by mouth once daily. clopidogrel (PLAVIX) 75 mg tablet Take 1 tablet by mouth once daily. MULTIVITAMIN (MULTIPLE VITAMINS ORAL) Take by mouth once daily. nitroglycerin sublingual (NITROQUICK) 0.4 mg SL tablet Dissolve 1 tablet under the tongue every 5 minutes as needed for Chest Pain. COMPLEX C SR 500 MG-25 MG-25 MG TAB 2 tabs daily No current facility-administered medications for this visit. FAMILY HISTORY Problem Relation Age of Onset Hypertension Mother Stroke Mother GI Father Stroke Father Social History Tobacco Use Smoking status: Former Smokeless tobacco: Never Tobacco comments: quit 1999 Vaping Use Vaping Use: Never used Substance Use Topics Alcohol use: Yes Comment: seldom Drug use: No EXAM: BP 148/70 Pulse 60 Resp 16 Wt 68.9 kg (152 lb) SpO2 94% BMI 21.81 kg/m PHYSICAL EXAM: Physical Exam Vitals reviewed. Constitutional: Appearance: Normal appearance. HENT: Head: Normocephalic. Cardiovascular: Rate and Rhythm: Normal rate and regular rhythm. Pulses: Normal pulses. Heart sounds: Normal heart sounds. Pulmonary: Effort: Pulmonary effort is normal. Breath sounds: Normal breath sounds. Abdominal: General: There is no distension. Palpations: Abdomen is soft. Tenderness: There is abdominal tenderness. There is guarding. There is no rebound. Hernia: No hernia is present. Comments: Left side of colon with tenderness and guarding Musculoskeletal: General: Normal range of motion. Skin: General: Skin is warm and dry. Neurological: Mental Status: He is alert. Psychiatric: Mood and Affect: Mood normal. Behavior: Behavior normal. LABS: ASSESSMENT/PLAN: 1. Left sided abdominal pain - ICD9: 789.09, ICD10: R10.9 Differential Diagnosis includes PUD, Gastritis, and Diverticulitis - Check labs for H Pylori, CBC, CMP, amylase and lipase - Pantoprazole 40 mg daily - Start flagyl and Cipro for 5 days - Recheck in 1 month Brigitte Segal APRN.GANG LEADER documented in this encounterOhio State Health System06-07-2024 Telephone encounter Note * Telephone Encounter - Shirley Rivera MA - 01/04/2024 3:40 PM EDT Letter mailed to patient [facility] Miscellaneous Notes* Telephone Encounter - Shirley Rivera MA - 01/04/2024 3:40 PM EDT Letter mailed to patient * Telephone Encounter - Shirley Rivera MA - 01/01/2024 4:48 PM EDT Attempted to call, no answer * Telephone Encounter - Walter Gomez MD - 12/28/2023 2:27 PM EDT Let him know his labs are stable. documented in this encounterOhio State Health System06-04-2024 Telephone encounter Note * Telephone Encounter - Shirley Rivera MA - 01/01/2024 4:48 PM EDT Attempted to call, no answer [facility] Telephone encounter Note* Telephone Encounter - Victoria Gleason - 12/31/2023 2:51 PM EDT Patient has been identified by name and date of : Yes, Provider Justin Durbin PA-C Date 12/31/2023 Time 2:54 pm Patient saughter phones for refill(s): Requested Prescriptions Pending Prescriptions Disp Refills tamsulosin (FLOMAX) 0.4 mg 180 capsule 3 Sig: Take 2 capsules by mouth once daily. metoprolol succinate ER (TOPROL XL) 25 mg 24 hr tablet 90 tablet 3 Sig: Take 1 tablet by mouth once daily. Date of last office visit in primary care: 12/25/2023 Date of next office visit in primary care: 07/01/2024 Please advise. Thank you. Victoria Berkowitz. [facility] Miscellaneous Notes* Telephone Encounter - Victoria Gleason - 12/31/2023 2:51 PM EDT Patient has been identified by name and date of : Yes, Provider Justin Durbin PA-C Date 12/31/2023 Time 2:54 pm Patient saughter phones for refill(s): Requested Prescriptions Pending Prescriptions Disp Refills tamsulosin (FLOMAX) 0.4 mg 180 capsule 3 Sig: Take 2 capsules by mouth once daily. metoprolol succinate ER (TOPROL XL) 25 mg 24 hr tablet 90 tablet 3 Sig: Take 1 tablet by mouth once daily. Date of last office visit in primary care: 12/25/2023 Date of next office visit in primary care: 07/01/2024 Please advise. Thank you. Victoria Berkowitz. documented in this encounterOhio State Health System05-31-2024 Telephone encounter Note * Telephone Encounter - Walter Gomez MD - 12/28/2023 2:27 PM EDT Let him know his labs are stable. [facility] Work Phone: [phone]) 972-961205-28-2024 Instructions* Patient Instructions* Radha Durbin PA-C - 12/25/2023 9:46 AM EDT Please schedule as soon as possible [facility] documented in this encounterOhio State Health System05-28-2024 History of Present illness Narrative* Radha Durbin PA-C - 12/25/2023 9:00 AM EDT 88 year old male with c/o here for follow up. Coronary artery disease involving [place] coronary artery of [place] heart without angina pectoris (primary encounter diagnosis) S/p primary angioplasty with coronary stent Angina pectoris (hcc) Atherosclerosis of aorta (hcc) Essential hypertension, benign Hyperlipidemia ldl goal <100 Pad (peripheral artery disease) ([facility]) Cardiovascular interval hx: Sees [facility]: no new records 08/01/2023-08/04/2023 hospitalized [facility]: progressive SOB, hypoxia, bilateral pneumonia suspected atypical but negative cultures. 08/02/2023 echocardiogram [facility]: LV size WNL, mild concentric LVH, EF 65%. Diastolic dysfunction indeterminant. RV normal size and RV SF LA enlarged. RA WNL. Trivial mitral valve insufficiency moderate 2+ tricuspid insufficiency, RVSP 75 mmHg AV sclerosis, no stenosis PV not well-visualized Normal-sized aortic root No pericardial effusion 02/27/2022 exercise myocardial perfusion stress test demonstrated [...] to suggest ischemia. 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 Was recommended to have a screening stress test to insure patency of LAD stent 09/08/2019 cardiac cath: [...] back pain suggestive of angina: No. SOB: Yes, runs out or breath doing lawn work. Takes 10 minutes to recover. Dyspnea with exertion: No orthopnea: No Cough : No racing or irregular heartbeats: No palpitations: No syncopal sx: No. Denies dizziness since reduced medication. Walking around 1.5 acres, not currentlyon treadmill. Headache: No Unexplainable fatigue No Leg swelling: No Nausea: No diaphoresis: No Heartburn: No Claudication: No Smoking: No Following Low cholesterol, high fiber diet? some If on statin: muscle aches? No If on statin: GI sx or diarrhea? Yes Additional history none. Lab review: no new labs Khari Beam: drinking 1/5 a week: states 1-2 shots Component Latest Ref Rng & Units 11/29/2022 04/30/2023 06/28/2023 WBC 3.70 - 11.00 k/uL 8.76 11.02 (H) RBC 4.20 - 6.00 m/uL 5.17 5.38 Hemoglobin 13.0 - 17.0 g/dL 16.1 16.7 Hematocrit 39.0 - 51.0 % 49.3 50.0 MCV 80.0 - 100.0 fL 95.4 92.9 MCH 26.0 - 34.0 pg 31.1 31.0 MCHC 30.5 - 36.0 g/dL 32.7 33.4 RDW-CV 11.5 - 15.0 % 15.3 (H) 13.9 Platelet Count 150 - 400 k/uL 194 229 MPV 9.0 - 12.7 fL 11.8 11.6 Neut% % 79.6 Abs Neut (ANC) 1.45 - 7.50 k/uL 8.78 (H) Lymph% % 7.4 Abs Lymph 1.00 - 4.00 k/uL 0.81 (L) Becker% % 9.0 Abs Becker <0.87 k/uL 0.99 (H) Eosin% % 2.6 Abs Eosin <0.46 k/uL 0.29 Baso% % 0.5 Abs Baso <0.11 k/uL 0.05 Immature Gran % % 0.9 IMMATURE GRANS (ABS) <0.10 k/uL 0.10 (H) NRBC /100 WBC 0.0 Absolute nRBC <0.01 k/uL <0.01 <0.01 DTYPE Auto Protein, Total 6.3 - 8.0 g/dL 6.3 6.3 Albumin 3.9 - 4.9 g/dL 4.1 4.3 Calcium 8.5 - 10.2 mg/dL 9.4 9.8 Bilirubin, Total 0.2 - 1.3 mg/dL 0.7 1.1 Alkaline Phosphatase 38 - 113 U/L 50 53 AST 14 - 40 U/L 19 21 ALT 10 - 54 U/L 14 26 Glucose 74 - 99 mg/dL 105 (H) 94 BUN 9 - 24 mg/dL 13 16 Creatinine 0.73 - 1.22 mg/dL 0.94 1.03 1.11 Sodium 136 - 144 mmol/L 143 139 Potassium 3.7 - 5.1 mmol/L 4.1 4.1 Chloride 97 - 105 mmol/L 105 103 CO2 22 - 30 mmol/L 24 27 Anion Gap 9 - 18 mmol/L 14 9 eGFR >=60 mL/min/1.73m 79 71 65 Cholesterol, Total <200 mg/dL 134 Triglyceride <150 mg/dL 94 HDL Cholesterol >39 mg/dL 39 (L) Non HDL Cholesterol <130 mg/dL 95 Fasting Time hrs 12 VLDL Cholesterol <30 mg/dL 19 TC:HDL Ratio <5.10 3.44 LDL Cholesterol <100 mg/dL 76 LDL:HDL Ratio <2.54 1.95 Parkinson's disease without dyskinesia, with fluctuating manifestations Forgetfulness Current medications: none Stopped Ropinirole 4 mg 3 times daily because he felt bad in the mornings. [place] better after he stopped. Can think of something and then forget it the next minute. Daughter says he doesn't remember from one day to next with conversations. Does keep a calendar donnie. Hyperbilirubinemia Gastroesophageal reflux disease, unspecified whether esophagitis present Current medication: Omeprazole 40mg daily. Current symptoms: Continues with low appetite, eats small bits, no real meals, lately eating a bit more. Last Mg level if on PPI chronically: 1.9, 04/16/2021. Heartburn is controlled: Yes. Dysphagia: No. Bloody or black stools: No. Bowel changes: No. Last EGD and/or colonoscopy: 08/09/2020. Benign prostatic hyperplasia with nocturia Current medications: Finasteride 5 mg daily Tamsulosin 0.4 mg 2 capsules nightly Also taking saw memett Urine flow: good, gets up about twice a night Anxiety state Current medications: Trazodone 50 mg daily at bedtime. Buspar not too effective but only takes 5mg once in awhile. Trazedone works well. HISTORIES FAMILY HISTORY Problem Relation Age of [...] lipoma performed by Dr. Robe Mackenzie at [facility] REVSC OPN/PRQ FEM/POP W/STNT/ANGIOP SM VSL 03-18-14 [...] Chronic Blood Loss Coronary Artery Disease Involving [place] Coronary Artery of [place] Heart S/P Primary Angioplasty With Coronary Stent Fall From Standing Encounter for Support and Coordination of Transition of Care Acute Respiratory Failure With Hypoxia (Hcc) Current Outpatient Medications Medication Sig Dispense Refill traZODone (DESYREL) 50 mg tablet Take 1 tablet by mouth daily at bedtime. 90 tablet 1 Lactobacillus acidophilus (PROBIOTIC ACIDOPHILUS ORAL) Take by mouth. hydroCHLOROthiazide 25 mg tablet Take 0.5 tablets by mouth once daily. 90 tablet 3 amLODIPine (NORVASC) 10 mg tablet Take 1 tablet by mouth once daily. 90 tablet 3 finasteride (PROSCAR) 5 mg tablet Take 1 tablet by mouth once daily. 90 tablet 3 atorvastatin (LIPITOR) 10 mg tablet Take 1 tablet by mouth once daily. 90 tablet 3 citalopram (CELEXA) 20 mg tablet Take 1 tablet by mouth once daily. 90 tablet 3 omeprazole (PRILOSEC) 40 mg capsule Take 1 capsule by mouth once daily. 90 capsule 3 busPIRone (BUSPAR) 5 mg tablet Take 1 tablet by mouth three times daily. 90 tablet 1 metoprolol succinate ER (TOPROL XL) 25 mg 24 hr tablet Take 1 tablet by mouth once daily. 90 tablet3 clopidogrel (PLAVIX) 75 mg tablet Take 1 tablet by mouth once daily. 90 tablet 3 tamsulosin (FLOMAX) 0.4 mg Take 2 capsules by mouth once daily. 180 capsule 3 nitroglycerin sublingual (NITROQUICK) 0.4 mg SL tablet Dissolve 1 tablet under the tongue every 5 minutes as needed for Chest Pain. 1 Bottle of 25 0 MULTIVITAMIN (MULTIPLE VITAMINS ORAL) Take by mouth once daily. ASPIRIN 81 MG TAB Take one(1) tablet daily. 0 COMPLEX C SR 500 MG-25 MG-25 MG TAB 2 tabs daily 0 No current facility-administered medications for this visit. RSV Vaccine(1 - 1-dose 60+ series) Never done Advance Directive Discussion due on 07/30/2023 Behavioral Health Screening Never done Covid-19 Vaccine(2022- season) due on 08/31/2023 LDL Cholesterol due on 11/30/2023 EXAM: BP 120/68 Pulse 61 Resp 16 Wt 72.1 kg (159 lb) SpO2 95% BMI 22.81 kg/m Pleasant older man in no acute distress. Alert and oriented all spheres. Normal affect and cognition. Speech normal. No deficits to learning or comprehension. Skin warm, dry, pink to lips and nailbeds. Normal turgor. Some mildly pink scaly lesion on foreheadhairline. Dry flaking skin on lower legs. Respirations regular and unlabored. HEENT: NCAT. No scleral icterus or conjunctival injection. Hearing aides removed, TM's clear. Nose and oropharynx free from injection or lesion. Oral membranes moist and pink. No cervical lymph nodes. Thyroid non-tender, no masses, or enlargement. Carotids pulses 2+/4+ without bruits. No JVD with HOB at 30 degrees. Extrem: no clubbing or cyanosis. Edema: 1/4+ pitting lower legs. Extremities are warm and pink withprompt capillary refill. ASSESSMENT/PLAN: 1. Coronary artery disease involving [place] coronary artery of [place] heart without angina pectoris- ICD9: 414.01, ICD10: I25.10 (primary diagnosis) 2. S/P primary angioplasty with coronary stent - ICD9: V45.82, ICD10: Z95.5 3. Angina pectoris (HCC) - ICD9: 413.9, ICD10: I20.9 4. Atherosclerosis of aorta (HCC) - ICD9: 440.0, ICD10: I70.0 5. Essential hypertension, benign - ICD9: 401.1, ICD10: I10 6. Hyperlipidemia LDL goal <100 - ICD9: 272.4, ICD10: E78.5 No current anginal equivalents or signs of decompensation Needs follow up with [facility]:daughter will schedule Continue current meds - COMPLETE BLOOD COUNT AND DIFFERENTIAL - LIPID PANEL BASIC 7. PAD (peripheral artery disease) (HCC) - ICD9: 443.9, ICD10: I73.9 Stable 8. Forgetfulness - ICD9: 780.99, ICD10: R68.89 Mild, no safety issues. Repetitive sometimes per daughter Pili 9. Parkinson's disease without dyskinesia, with fluctuating manifestations (HCC) - ICD9: 332.0, ICD10: G20.A2 Stopped ropinerole due to worsening in the mornings - CONSULT TO NEUROLOGY 10. Hyperbilirubinemia - ICD9: 782.4, ICD10: E80.6 recheck - COMPREHENSIVE METABOLIC PANEL 11. Gastroesophageal reflux disease, unspecified whether esophagitis present - ICD9: 530.81, ICD10:K21.9 - Continue treatment with Prilosec 40 mg QD - COMPLETE BLOOD COUNT AND DIFFERENTIAL - COMPREHENSIVE METABOLIC PANEL 12. Benign prostatic hyperplasia with nocturia - ICD9: 600.01, 788.43, ICD10: N40.1, R35.1 Satisfactory flow. Up at night ut drinks in evening and when he gets up at night. 13. Anxiety state - ICD9: 300.00, ICD10: F41.1 Stable- not much benefit with Buspar at current level. Trial buspar 10mg three times daily - COMPLETE BLOOD COUNT AND DIFFERENTIAL - COMPREHENSIVE METABOLIC PANEL 14. Current use of proton pump inhibitor - ICD9: V58.69, ICD10: Z79.899 Check mag - MAGNESIUM 15. Alcohol use disorder, mild, abuse - ICD9: 305.00, ICD10: F10.10 Discussed alcohol use as depressant, risk with memory , balance, falls Strongly urged abstinence, at most 5-7 drinks/ week. F/u 6 mnths and as needed Some of this note may have been copied and pasted for the purpose of history context and comparison. All questions listed were asked and adjusted for changes in prior data. Radha Durbin PA-C documented in this encounterOhio State Health System05-28-2024 NoteHNO ID: [id number] Author: Radha DURBIN PA-C Service: ? 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 08/02/2023 echocardiogram [facility]: LV size WNL, mild concentric LVH, EF 65%. Diastolic dysfunction indeterminant. RV normal size and RV SF LA enlarged. RA WNL. Trivial mitral valve insufficiency moderate 2+ tricuspid insufficiency, RVSP 75 mmHg AV sclerosis, no stenosis PV not well-visualized Normal-sized aortic root No pericardial effusion 02/27/2022 exercise myocardial perfusion stress test demonstrated [...] to suggest ischemia. 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 Was recommended to have a screening stress test to insure patency of LAD stent 09/08/2019 cardiac cath: [...] back pain suggestive of angina: No. SOB: Yes, runs out or breath doing lawn work. Takes 10 minutes to recover. Dyspnea with exertion: No orthopnea: No Cough : No racing or irregular heartbeats: No palpitations: No syncopal sx: No. Denies dizziness since reduced medication. Walking around 1.5 acres, not currently on treadmill. Headache: No Unexplainable fatigue No Leg swelling: No Nausea: No diaphoresis: No Heartburn: No Claudication: No Smoking: No Following Low cholesterol, high fiber diet? some If on statin: muscle aches? No If on statin: GI sx or diarrhea? Yes Additional history none. Lab review: no new labs Khari Beam: drinking 1/5 a week: states 1-2 shots Component Latest Ref Rng AND Units 11/29/2022 04/30/2023 06/28/2023 WBC 3.70 - 11.00 k/uL 8.76 11.02 (H) RBC 4.20 - 6.00 m/uL 5.17 5.38 Hemoglobin 13.0 - 17.0 g/dL 16.1 16.7 Hematocrit 39.0 - 51.0 % 49.3 50.0 MCV 80.0 - 100.0 fL 95.4 92.9 MCH 26.0 - 34.0 pg 31.1 31.0 MCHC 30.5 - 36.0 g/dL 32.7 33.4 RDW-CV 11.5 - 15.0 % 15.3 (H) 13.9 Platelet Count 150 - 400 k/uL 194 229 MPV 9.0 - 12.7 fL 11.8 11.6 Neut% % 79.6 Abs Neut (ANC) 1.45 - 7.50 k/uL 8.78 (H) Lymph% % 7.4 Abs Lymph 1.00 - 4.00 k/uL 0.81 (L) Becker% % 9.0 Abs Becker <0.87 k/uL 0.99 (H) Eosin% % 2.6 Abs Eosin <0.46 k/uL 0.29 Baso% % 0.5 Abs Baso <0.11 k/uL 0.05 Immature Gran % % 0.9 IMMATURE GRANS (ABS) <0.10 k/uL 0.10 (H) NRBC /100 WBC 0.0 Absolute nRBC <0.01 k/uL <0.01 <0.01 DTYPE Auto Protein, Total 6.3 - 8.0 g/dL 6.3 6.3 Albumin 3.9 - 4.9 g/dL 4.1 4.3 Calcium 8.5 - 10.2 mg/dL 9.4 9.8 Bilirubin, Total 0.2 - 1.3 mg/dL 0.7 1.1 Alkaline Phosphatase 38 - 113 U/L 50 53 AST 14 - 40 U/L 19 21 ALT 10 - 54 U/L 14 26 Glucose 74 - 99 mg/dL 105 (H) 94 BUN 9 - 24 mg/dL 13 16 Creatinine 0.73 - 1.22 mg/dL 0.94 1.03 1.11 Sodium 136 - 144 mmol/L 143 139 Potassium 3.7 - 5.1 mmol/L 4.1 4.1 Chloride 97 - 105 mmol/L 105 103 CO2 22 - 30 mmol/L 24 27 Anion Gap 9 - 18 mmol/L 14 9 eGFR >=60 mL/min/1.73mA? 79 71 65 Cholesterol, Total <200 mg/dL 134 Triglyceride <150 mg/dL 94 HDL Cholesterol >39 mg/dL 39 (L) Non HDL Cholesterol <130 mg/dL 95 Fasting Time hrs 12 VLDL Cholesterol <30 mg/dL 19 TC:HDL Ratio <5.10 3.44 LDL Cholesterol <100 mg/dL 76 LDL:HDL Ratio <2.54 1.95 Parkinson's disease without dyskinesia, with fluctuating manifestations Forgetfulness Current medications: none Stopped Ropinirole 4 mg 3 times daily because he felt bad in the mornings. [place] bett (more content not included)...[facility]05-16-2024 Telephone encounter Note* Telephone Encounter - Kassandra Quispe RN - 12/13/2023 4:55 PM EDT Spoke with patient. Gave permission for son, Quincy to receive medical information. Spoke with Quincy and let him know script was sent. Kassandra Quispe RN [facility]05-16-2024 Miscellaneous Notes* Telephone Encounter - Kassandra Quispe RN - 12/13/2023 4:55 PM EDT Spoke with patient. Gave permission for Quincy venegas to receive medical information. Spoke with Quincy and let him know script was sent. Kassandra Quispe RN * Telephone Encounter - Ivy Soto RN - 12/13/2023 4:30 PM EDT per note below, office was to call rubi Khan when prescription was sent in. Phone number listed is on pt's chart but listed as daughter Pili who we are allowed to speak with. Attempted to call that number with no answer and voicemail states Quincy Lyles. Left msg regarding need to speak with pt in order to share information with Quincy. LM his name is not listed so we are unable to give him information. * Telephone Encounter - Danita Staples - 12/13/2023 2:14 PM EDT Patient has been identified by name and date of : Patient phones for refill(s): Requested Prescriptions Pending Prescriptions Disp Refills traZODone (DESYREL) 50 mg tablet 90 tablet 1 Sig: Take 1 tablet by mouth daily at bedtime. Date of last office visit in primary care: 09/25/2023 Date of next office visit in primary care: 12/25/2023 Please return call to Quincy venegas [phone] Please advise. Thank you. Danita Staples. [facility] Telephone encounter Note * Telephone Encounter - Ivy Soto RN - 12/13/2023 4:30 PM EDT per note below, office was to call son Quincy when prescription was sent in. Phone number listed is on pt's chart but listed as daughter Pili who we are allowed to speak with. Attempted to call that number with no answer and voicemail states Quincy Lyles. Left msg regarding need to speak with pt in order to share information with Quincy. LM his name is not listed so we are unable to give him information. [facility]05-16-2024 Telephone encounter Note* Telephone Encounter - Danita Staples - 12/13/2023 2:14 PM EDT Patient has been identified by name and date of : Patient phones for refill(s): Requested Prescriptions Pending Prescriptions Disp Refills traZODone (DESYREL) 50 mg tablet 90 tablet 1 Sig: Take 1 tablet by mouth daily at bedtime. Date of last office visit in primary care: 09/25/2023 Date of next office visit in primary care: 12/25/2023 Please return call to Quincy venegas [phone] Please advise. Thank you. Danita Staples. [facility]02-27-[facility] History of Present illness Narrative* Radha Durbin PA-C - 09/25/2023 9:00 AM EST 87 year old male with c/o here for 3 month follow up Hospital discharge summary Facility: [facility] Date of admission 08/01/2023 Date of discharge 08/04/2023 Discharge diagnoses and Plan 1. Acute hypoxia: Admitted through [facility] emergency department with complaint of progressive shortness of breath. Images demonstrated mild interstitial opacities in the lungs. Wasadmitted to monitored bed for subsequent management. Secondary to pneumonia with suspected atypical organisms. Acute viral respiratory panel came back negative. Patient was started on Rocephin as well as Zithromax in addition to supplemental oxygen and incentive spirometry with flutter valve. 2. Acute diarrhea possibly related to antibiotic use, placed on enteric precautions with stool studies on 08/04/2023 negative for C. difficile. 3. Coronary artery disease with prior PCI, dual platelet therapy and beta- blockers maintained. 4. Hypokalemia corrected per protocol 5. Hypertension blood pressure control, home medications continued 6. Dyslipidemia controlled, on statin therapy continue home medication 7. BPH with lower urinary tract obstruction on finasteride which was continued 8. Gastroesophageal reflux on PPI continue 9. Depression/anxiety: Continues on trazodone, citalopram, BuSpar 10. DVT prophylaxis Lovenox Medication reconciliation New medications: Guaifenesin 1200 mg tablet every 12 hours, #20/0 Prednisone 20 mg p.o. twice daily, #10/0 completed Cefdinir 300 mg p.o. twice daily, 10/0 completed Lactobacillus acidophilus 1 billion cell capsule p.o. daily, #30/0 Continue medications: Amlodipine 10 mg daily tamsulosin 0.4 mg daily niacin 500 mg capsule extended release daily aspirin 81 mg daily citalopram 20 mg daily multivitamin daily Ascorbic acid 1000 mg daily atorvastatin 10 mg daily ropinirole 75 mg daily finasteride 5 mg daily Latanoprost 0.05% drops 1 drop each eye nightly Trazodone 50 mg daily at bedtime Omeprazole [address] Daily metoprolol 25 mg ER daily Buspirone 5 mg p.o. 3 times daily Hydrocodone-acetaminophen 5-325 mg 1 p.o. every 6 hours as needed pain HCTZ 25 mg daily, 90/3 Hospital course: Patient was brought into the emergency department 08/01/2019 for shortness of breathand generalized weakness. Had been having a week with cough yellow sputum, shortness of breath without fever or chills. Home pulse ox was checked by daughter in the 80's percentile. Went to [facility] and sent to ER. Placed on O2. Chest x-ray demonstrated mild interstitial opacities in both lungs. When he ambulated to bathroom with O2 saturation dropping to the 70s. He was given Rocephin and Zithromax IV. Decision made to admit. Troponin was within normal limits, BNP is slightly elevated but previous. D- dimer was negative. Patient received DuoNebs and as needed albuterol. Sputum culture, COVID, flu testing all negative. Urine antigens negative. Was treated with Mucinex and incentive spirometry. Rocephin and Zithromax was continued 08/02/2023 echocardiogram [facility]: LV size WNL, mild concentric LVH, EF 65%. Diastolic dysfunction indeterminant. RV normal size and RV SF LA enlarged. RA WNL. Trivial mitral valve insufficiency moderate 2+ tricuspid insufficiency, RVSP 75 mmHg AV sclerosis, no stenosis PV not well-visualized Normal-sized aortic root No pericardial effusion Still having issues with diarrhea, watery to mushy. No pain Current status: Feeling well, stomach is better Sleeping well Concerned about forgetfulness. No trouble breathing or coughing. Energy seems Waiting for warm weather to try new mower Moving bowels twice a day, previously once a day. Taking Immodium AD which helps. Has been eating roasted peanuts in shell, several handfuls daily for several months. S This habit seems to correlate with change in bowels. No indications of dehydration or weakness. Coronary artery disease involving [place] coronary artery of [place] heart without angina pectoris (primary encounter diagnosis) S/p primary angioplasty with coronary stent Angina pectoris ([facility]) Atherosclerosis of aorta ([facility]) Essential hypertension, benign Hyperlipidemia ldl goal <100 Pad (peripheral artery disease) ([facility]) Cardiovascular interval hx: 08/22/2023 sent to ED from [facility] with lo O2 sat Sees [facility]: no new records 08/02/2023 echocardiogram [facility]: LV size WNL, mild concentric LVH, EF 65%. Diastolic dysfunction indeterminant. RV normal size and RV SF LA enlarged. RA WNL. Trivial mitral valve insufficiency moderate 2+ tricuspid insufficiency, RVSP 75 mmHg AV sclerosis, no stenosis PV not well-visualized Normal-sized aortic root No pericardial effusion 02/27/2022 exercise myocardial perfusion stress test demonstrated [...] to suggest ischemia. 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 Was recommended to have a screening stress test to insure patency of LAD stent 09/08/2019 cardiac cath: [...] irregular heartbeats: No palpitations: No syncopal sx: No. Has a little dizziness when up and around, not to point concerned about balance orfalling. Walking around 15 acres, also n treadmill. Headache: No Unexplainable fatigue No Leg swelling: No Nausea: No diaphoresis: No Heartburn: No Claudication: No Smoking: No Following Low cholesterol, high fiber diet? some If on statin: muscle aches? No If on statin: GI sx or diarrhea? Yes Additional history none. Lab review: Component Latest Ref Rng & Units 11/29/2022 04/30/2023 06/28/2023 WBC 3.70 - 11.00 k/uL 8.76 11.02 (H) RBC 4.20 - 6.00 m/uL 5.17 5.38 Hemoglobin 13.0 - 17.0 g/dL 16.1 16.7 Hematocrit 39.0 - 51.0 % 49.3 50.0 MCV 80.0 - 100.0 fL 95.4 92.9 MCH 26.0 - 34.0 pg 31.1 31.0 MCHC 30.5 - 36.0 g/dL 32.7 33.4 RDW-CV 11.5 - 15.0 % 15.3 (H) 13.9 Platelet Count 150 - 400 k/uL 194 229 MPV 9.0 - 12.7 fL 11.8 11.6 Neut% % 79.6 Abs Neut (ANC) 1.45 - 7.50 k/uL 8.78 (H) Lymph% % 7.4 Abs Lymph 1.00 - 4.00 k/uL 0.81 (L) Becker% % 9.0 Abs Becker <0.87 k/uL 0.99 (H) Eosin% % 2.6 Abs Eosin <0.46 k/uL 0.29 Baso% % 0.5 Abs Baso <0.11 k/uL 0.05 Immature Gran % % 0.9 IMMATURE GRANS (ABS) <0.10 k/uL 0.10 (H) NRBC /100 WBC 0.0 Absolute nRBC <0.01 k/uL <0.01 <0.01 DTYPE Auto Protein, Total 6.3 - 8.0 g/dL 6.3 6.3 Albumin 3.9 - 4.9 g/dL 4.1 4.3 Calcium 8.5 - 10.2 mg/dL 9.4 9.8 Bilirubin, Total 0.2 - 1.3 mg/dL 0.7 1.1 Alkaline Phosphatase 38 - 113 U/L 50 53 AST 14 - 40 U/L 19 21 ALT 10 - 54 U/L 14 26 Glucose 74 - 99 mg/dL 105 (H) 94 BUN 9 - 24 mg/dL 13 16 Creatinine 0.73 - 1.22 mg/dL 0.94 1.03 1.11 Sodium 136 - 144 mmol/L 143 139 Potassium 3.7 - 5.1 mmol/L 4.1 4.1 Chloride 97 - 105 mmol/L 105 103 CO2 22 - 30 mmol/L 24 27 Anion Gap 9 - 18 mmol/L 14 9 eGFR >=60 mL/min/1.73m 79 71 65 Cholesterol, Total <200 mg/dL 134 Triglyceride <150 mg/dL 94 HDL Cholesterol >39 mg/dL 39 (L) Non HDL Cholesterol <130 mg/dL 95 Fasting Time hrs 12 VLDL Cholesterol <30 mg/dL 19 TC:HDL Ratio <5.10 3.44 LDL Cholesterol <100 mg/dL 76 LDL:HDL Ratio <2.54 1.95 Parkinson's disease without dyskinesia, with fluctuating manifestations Current medications: none Stopped Ropinirole 4 mg 3 times daily because he felt bad in the mornings. [place] better after he stopped. Lost evangelista-fob and hasn't been Hyperbilirubinemia Gastroesophageal reflux disease, unspecified whether esophagitis present Current medication: Omeprazole 40mg daily. Current symptoms: Continues with low appetite, eats small bits, no real meals, lately eating a bit more. Last Mg level if on PPI chronically: 1.9, 04/16/2021. Heartburn is controlled: Yes. Dysphagia: No. Bloody or black stools: No. Bowel changes: No. Last EGD and/or colonoscopy: 08/09/2020. Benign prostatic hyperplasia with nocturia Current medications: Finateride 5 mg daily Tamsulosin 0.4 mg 2 capsules nightly Urine flow: good, no nocturia, Anxiety state Current medications: Trazodone 50 mg daily at bedtimer. Trazedone works well. HISTORIES FAMILY HISTORY Problem Relation Age of [...] lipoma performed by Dr. Robe Mackenzie at [facility] REVSC OPN/PRQ FEM/POP W/STNT/ANGIOP SM VSL 03-18-14 [...] Chronic Blood Loss Coronary Artery Disease Involving [place] Coronary Artery of [place] Heart S/P Primary Angioplasty With Coronary Stent Fall From Standing Encounter for Support and Coordination of Transition of Care Current Outpatient Medications Medication Sig Dispense Refill amLODIPine (NORVASC) 10 mg tablet Take 1 tablet by mouth once daily. 90 tablet 3 finasteride (PROSCAR) 5 mg tablet Take 1 tablet by mouth once daily. 90 tablet 3 hydroCHLOROthiazide 25 mg tablet Take 1 tablet by mouth once daily. 90 tablet 3 atorvastatin (LIPITOR) 10 mg tablet Take 1 tablet by mouth once daily. 90 tablet 3 citalopram (CELEXA) 20 mg tablet Take 1 tablet by mouth once daily. 90 tablet 3 traZODone (DESYREL) 50 mg tablet Take 1 tablet by mouth daily at bedtime. 90 tablet 1 omeprazole (PRILOSEC) 40 mg capsule Take 1 capsule by mouth once daily. 90 capsule 3 busPIRone (BUSPAR) 5 mg tablet Take 1 tablet by mouth three times daily. 90 tablet 1 metoprolol succinate ER (TOPROL XL) 25 mg 24 hr tablet Take 1 tablet by mouth once daily. 90 tablet3 clopidogrel (PLAVIX) 75 mg tablet Take 1 tablet by mouth once daily. 90 tablet 3 tamsulosin (FLOMAX) 0.4 mg Take 2 capsules by mouth once daily. 180 capsule 3 rOPINIRole (REQUIP) 4 mg tablet Take 1 tablet by mouth three times daily. 90 tablet 3 nitroglycerin sublingual (NITROQUICK) 0.4 mg SL tablet Dissolve 1 tablet under the tongue every 5 minutes as needed for Chest Pain. 1 Bottle of 25 0 MULTIVITAMIN (MULTIPLE VITAMINS ORAL) Take by mouth once daily. ASPIRIN 81 MG TAB Take one(1) tablet daily. 0 COMPLEX C SR 500 MG-25 MG-25 MG TAB 2 tabs daily 0 No current facility-administered medications for this visit. RSV Vaccine(1 - 1-dose 60+ series) Never done Advance Directive Discussion due on 07/30/2023 Depression Assessment Never done EXAM: BP 110/62 Pulse 66 Resp 16 Wt 72.1 kg (159 lb) SpO2 92% BMI 22.81 kg/m Pleasant elderly male in no acute distress. Alert and oriented all spheres. Normal affect and cognition. Speech normal. No deficits to learning or comprehension. Skin warm, dry, pink to lips and nailbeds. Normal turgor. Respirations regular and unlabored. Extrem: no clubbing or cyanosis. Edema: none. Extremities are warm and pink with prompt capillary refill. ASSESSMENT/PLAN: 1. Coronary artery disease involving [place] coronary artery of [place] heart without angina pectoris- ICD9: 414.01, ICD10: I25.10 (primary diagnosis) 2. S/P primary angioplasty with coronary stent - ICD9: V45.82, ICD10: Z95.5 3. Angina pectoris (HCC) - ICD9: 413.9, ICD10: I20.9 4. Atherosclerosis of aorta (HCC) - ICD9: 440.0, ICD10: I70.0 Stable, no ischemic sx, see [facility] 5. Essential hypertension, benign - ICD9: 401.1, ICD10: I10 - Controlled - Continue current medications - Recommend home blood pressure monitoring, to bring results to next visit - Encouraged sodium restriction, DASH or Mediterranean diet - Recommend regular aerobic exercise 6. Hyperlipidemia, mixed - ICD9: 272.2, ICD10: E78.2 - Controlled - Continue current medications - Counseled on healthy diet and regular exercise 7. PAD (peripheral artery disease) (HCC) - ICD9: 443.9, ICD10: I73.9 Stable, no evidence of claudication 8. Parkinson's disease without dyskinesia, with fluctuating manifestations (HCC) - ICD9: 332.0, ICD10: G20.A2 Stable off medication currently Close supervision by daughter. 9. Hyperbilirubinemia - ICD9: 782.4, ICD10: E80.6 resolved 10. Gastroesophageal reflux disease, unspecified whether esophagitis present - ICD9: 530.81, ICD10:K21.9 - Discussed lifestyle modifications including losing weight, limiting caffeine, no meals three hours before sleep, and head of bed elevation 11. Benign prostatic hyperplasia with nocturia - ICD9: 600.01, 788.43, ICD10: N40.1, R35.1 stable 12. Anxiety state - ICD9: 300.00, ICD10: F41.1 Improved with citalopram and buspirone: continue ASSESSMENT/PLAN: 13. Hospital discharge follow-up - ICD9: V67.59, ICD10: Z09 Completed problem update, medication reconciliation, follow up appointment.s 14. Acute respiratory failure with hypoxia (HCC) - ICD9: 518.81, ICD10: J96.01 resolved 15. Pneumonia, primary atypical - ICD9: 486, ICD10: J18.9 Completed antibiotics, back to baseline. I spent a total of 45 minutes on the date of the service which included preparing to see the patient, [id number] patient care, completing clinical documentation, obtaining and/or reviewing separately obtained history, performing a medically appropriate examination, counseling and educating the pat ient/family/caregiver, ordering medications, tests, or procedures, and communicating results to thepatient/family/caregiver. Some of this note may have been copied and pasted for the purpose of history context and comparisonand has been adjusted for changes in prior data. Radha Durbin PA-C documented in this encounterOhio State Health System01-06-2024 Discharge summary Author Jerrell Faith [facility] August 04, 2023 12:59pm Note Date/Time August 04, 2023 11 :14am [facility] Medical Records Department [address] [place] [address] Discharge Summary 08/04/23 1114 MR#: [id number] Acct: [id number] Name: CLARK LYLES Rep #:[id number] : 1935 [id number] From: Jerrell Faith MD PCP: CHRISTINE Brown Status:ADM I N Location: [place] [address] Providers Date of Admission: 08/01/23 Date of Discharge: 08/04/23 Primary Care Physician: CHRISTINE Brown Reason For Visit: HYPOXIA Diagnosis Discharge Diagnosis (1) Hypoxia: Status: Acute Code(s): R09.02 - Hypoxemia (2) Pneumonia: Status: Acute Code(s): J18.9 - Pneumonia, unspecified organism Plan Patient is an 87-year-old gentleman admitted with progressive shortness of breath. Imaging studies obtained on admission demonstrated mild interstitial opacities in the lungs. Admitted to a monitored bed for subsequent management 1. Acute hypoxia ? Secondary to pneumonia with suspected atypical organisms. Patient acute viralrespiratory panel came back unremarkable. Patient started on Rocephin as well as azithromycin in addition to supplemental oxygen and incentive spirometry and flutter valve ? 08/03/2023; patient remains on supplemental oxygen currently 4 L flow per minute 2. Acute diarrhea ? Possibly related to antibiotic use patient has however been placed on enteric precautions whiles C. difficile has been ruled out ? 08/04/2023; stool studies came back negative for C. difficile 3. Coronary artery disease ? With previous history of PCI patient is on recommended medications including dual antiplatelet therapy statin and beta-blockers 4. Hypokalemia -Corrected per protocol 5. Hypertension - Blood pressure controlled, home medications continued with dose adjustment as needed 6. Dyslipidemia -Patient is on statin therapy, continued at home dose 7. BPH with lower urinary obstruction - Patient treated with finasteride 8. GERD -Continue PPI 9. Depression/anxiety -Continue trazodone, citalopram, BuSpar 10. DVT prophylaxis - On enoxaparin Time spent in the patient's overall evaluation,decision-making process, review of diagnostic data, adjustment of management, discussion with other providers, nursing nursing and ancillary staff involved in patient's care documentation, 35 Minutes Medications at Discharge Home Medications citalopram 20 mg tablet 20 mg PO DAILY DEPRESSION 03/17/14 multivitamin 1 ea PO DAILY HEALTH MINENANCE 05/16/17 amlodipine 10 mg tablet 10 mg PO DAILY BLOOD PESSURE 09/04/19 tamsulosin 0.4 mg capsule 0.4 mg PO DAILY PROSTATE 09/04/19 niacin 500 mg capsule,extended release 500 mg PO DAILY SUPPLEMENT 09/16/19 ascorbic acid (vitamin C) 1,000 mg tablet 1,000 mg PO DAILY SUPPLEMENT 01/18/20 atorvastatin 10 mg tablet 10 mg PO DAILY CHOLESTEROL 08/25/20 clopidogrel 75 mg tablet 75 mg PO DAILY BLOOD THINNER 08/25/20 finasteride 5 mg tablet 5 mg PO DAILY PROSTATE 08/26/20 hydrochlorothiazide 25 mg tablet 25 mg PO DAILY BLOOD PRESSURE #90 tabs 09/20/20 aspirin 81 mg tablet,delayed release (Adult Aspirin Regimen) 81 mg PO DAILY HEART HEALTH 04/25/21 buspirone 5 mg tablet 5 mg PO TID 08/01/23 hydrocodone-acetaminophen 5-325mg 5mg-325mg 1 tab PO Q6H PRN PAIN 08/01/23 latanoprost 0.005 % eye drops 1 drp ophthalmic (eye) QHS GLAUCOMA 08/01/23 metoprolol succinate 25 mg tablet,extended release 24 hr 25 mg PO DAILY BLOOD PRESSURE 08/01/23 omeprazole 40 mg capsule,delayed release 40 mg PO DAILY ACID REFLUX 08/01/23 trazodone 50 mg tablet 50 mg PO QHS SLEEP 08/01/23 Lactobacillus acidophilus 1 billion cell capsule 1,000 mmu cells PO DAILY #30 caps 08/04/23 cefdinir 300 mg capsule 300 mg PO BID #10 caps 08/04/23 guaifenesin 1,200 mg tablet, extended release 12 hr (Mucus Relief ER) 1,200 mg PO BID #20 tabs 08/04/23 prednisone 20 mg tablet 20 mg PO BID #10 tabs 08/04/23 Physical Exam Narrative GENERAL: cooperative HEENT: Atraumatic; normocephalic EYES; Anicteric, Normal Conjunctiva NECK; supple, normal thyroid, RESPIRATORY: Diminished to auscultation CARDIOVASCULAR: Regular S1 S2, GI: soft, normoactive bowel sounds, : No Renal angle tenderness; EXTREMITIES: No edema, no clubbing, MUSCULOSKELETAL: no muscle wasting NEURO: Awake; no lateralizing signs. SKIN: No Rash PSYCH; Flat affect Weight / BMI Weight Weight: 71.4 kg Body Mass Index (BMI) 22.6 ABG / Lab / Microbiology Data 08/04/23 06:58 08/04/23 06:58 Laboratory: Laboratory Results - last 24 hr 08/03/23 10:50: Sodium 145, Potassium 3.5, Chloride 114 H, Carbon Dioxide 24.0, Anion Gap 7, BUN 21 H, Creatinine 0.89, Estim Creat Clear Calc 60.42, Est GFR (MDRD) Af Amer 104, Est GFR (MDRD) Non-Af 86, BUN/Creatinine Ratio 23.6 H, Glucose 146 H, Calcium 8.3 L, Phosphorus 2.1 L, Magnesium 1.9, Total Bilirubin 0.30, AST 10 L, ALT 18, Alkaline Phosphatase 46, Total Protein 5.6 L, Albumin 3.0 L, Globulin 2.6, Albumin/Globulin Ratio 1.2 08/04/23 06:58: WBC 8.0, RBC 4.52 L, Hgb 13.4, Hct 41.7, MCV 92.3, MCH 29.6, MCHC 32.1, RDW Std Deviation 49.3 H, RDW Coeff of Jihan 14.6, Plt Count 186, MPV 10.7, Immature Gran % (Auto) 0.800, Neut % (Auto) 76.4 H, Lymph % (Auto) 8.9 L, Becker % (Auto) 9.4, Eos % (Auto) 4.1, Baso % (Auto) 0.4, Absolute Neuts (auto) 6.1, Absolute Lymphs (auto) 0.71 L, Nucleated RBC % 0, Sodium 141, Potassium 4.1, Chloride 113 H, Carbon Dioxide 25.0, Anion Gap 3 L, BUN 18, Creatinine 0.82, Estim Creat Clear Calc 66.51, Est GFR (MDRD) Af Amer 115, Est GFR (MDRD) Non-Af 95, BUN/Creatinine Ratio 22.1 H, Glucose 96, Calcium 8.9 Microbiology: Microbiology 08/03/23 12:15 Stool Clostridioides difficile (PCR) - Final 08/02/23 11:30 Urine, Clean Catch Legionella Antigen - Final 08/02/23 11:30 Urine, Clean Catch Streptococcus pneumoniae Antigen (M - Final 08/01/23 21:50 Mucosa - Nasopharyngeal Coronavirus COVID-19 PCR - Final 08/01/23 21:50 Mucosa - Nasopharyngeal Respiratory Panel (PCR) - Final 08/01/23 13:50 Nasal Secretion SARS-CoV-2 & FLU Antigen (Rapid) - Final D/C Instructions Discharge Diet: No restrictions Discharge Activity: Return to Normal Activity Call your doctor if you observe: Fever of 101 or Higher, Shortness of breath, Fainting spells and Chest pain Meaningful Use Info Meaningful Use Diagnoses (Choose all that apply): None applicable Discharge Plan Admission Admit Date/Time: 08/01/23 18:03 Attending Provider: Jerrell Faith Primary Care Provider: Radha Durbin Consulting Providers: Jasmine Tan Discharge Orders/Prescriptions Prescriptions: New guaifenesin [Mucus Relief ER] 1,200 mg Tablet Extended Release 12hr 1,200 mg PO BID Qty: 20 0RF prednisone 20 mg tablet 20 mg PO BID Qty: 10 0RF cefdinir 300 mg capsule 300 mg PO BID Qty: 10 0RF Lactobacillus acidophilus 1 billion cell capsule 1,000 mmu cells PO DAILY Qty: 30 0RF Continued amlodipine 10 mg tablet 10 mg PO DAILY tamsulosin 0.4 mg capsule 0.4 mg PO DAILY niacin 500 mg capsule, extended release 500 mg PO DAILY aspirin [Adult Aspirin Regimen] 81 mg tablet,delayed release (DR/EC) 81 mg PO DAILY citalopram 20 MG tablet 20 mg PO DAILY multivitamin 1 EACH tablet 1 ea PO DAILY ascorbic acid (vitamin C) 1,000 MG tablet 1,000 mg PO DAILY atorvastatin 10 MG tablet 10 mg PO DAILY clopidogrel 75 MG tablet 75 mg PO DAILY finasteride 5 MG tablet 5 mg PO DAILY latanoprost 0.005 % drops 1 drp ophthalmic (eye) QHS Rx Instructions: INSTILL ONE DROP INTO BOTH EYES AT BEDTIME trazodone 50 mg tablet 50 mg PO QHS omeprazole 40 mg capsule,delayed release(DR/EC) 40 mg PO DAILY metoprolol succinate 25 mg tablet extended release 24 hr 25 mg PO DAILY buspirone 5 mg tablet 5 mg PO TID Patient Comments: PT STATES THEY NORMALLY TAKE ONE OF THESE ONCE A DAY ( OF 08-02-23) hydrocodone-acetaminophen 5-325 mg tablet 1 tab PO Q6H PRN (Reason: PAIN ) hydrochlorothiazide 25 mg tablet 25 mg PO DAILY Qty: 90 3RF Referrals / Follow Up: Radha Durbin PA [Primary Care Provider] - Within 1 Week Disposition Disposition (needs filled in before D/C Order can be placed): Home, Self Care Charges/Coding Visit Charges Inpatient E&M: 30820 Disch Hosp >30min 08/04/23 1259 <Electronically signed by Jerrell Faith MD> Cosigner Signature (if applicable): CC: Dr. Jerrell Faith MD; CHRISTINE Brown~ Signed [facility] Work Phone: 1(785) 646-939901-06-2024 Progress note Author Jerrell Faith [facility] August 04, 2023 11:09am Note Date/Time August 04, 2023 8: 05am [facility] Medical Records Department [address] [place] [address] Progress Note - Hospitalist 08/04/23 0805 MR#: [id number] Acct: [id number] Name: CLARK LYLES Rep #:[id number] : 1935 87 From: Jerrell Faith MD PCP: CHRISTINE Brown Status:ADM I N Location: [place] [address] Reason for Visit Reason for Visit: Diagnoses Pneumonia, unspecified organism (08/01/23) Hypoxemia (08/01/23) Subjective Subjective Patient seen, continues to experience of loose bowel movement stool for C. difficile came back negative patient treated symptomatically with Imodium. His oxygen requirement continues to go down. Patient will however be assessed for home oxygen prior to being discharged Objective Data Objective Data Vital Signs: Vital Signs Temp Pulse Resp BP Pulse Ox O2 Del Method O2 Flow Rate 98.8 F 66 16 129/67 H 94 Nasal Cannula 4 08/04/23 04:36 08/04/23 04:36 08/04/23 04:36 08/04/23 04:36 08/04/23 04:36 08/04/23 04:36 08/04/23 04:36 FiO2 92 08/01/23 20:53 Oxygen Flow Rate (L/min) 4 Oxygen Delivery Method Nasal Cannula Weight: 71.4 kg Body Mass Index (BMI) 22.6 Intake & Output: Intake and Output for Last 24 Hours 08/02/23 08/03/23 08/04/23 23:59 23:59 23:59 Intake Total 1505 / 1505 305 / 545 240 / 240 Output Total 400 / 400 300 / 300 Balance 1105 / 1105 305 / 245 -60 / -60 Lab / Micro Data 08/04/23 06:58 08/04/23 06:58 Labs: Laboratory Results - last 24 hr 08/03/23 10:50: WBC 9.4, RBC 4.35 L, Hgb 13.1, Hct 40.2, MCV 92.4, MCH 30.1, MCHC 32.6, RDW Std Deviation 48.4 H, RDW Coeff of Jihan 14.5, Plt Count 178, MPV 11.2, Sodium 145, Potassium 3.5, Chloride 114 H, Carbon Dioxide 24.0, Anion Gap 7, BUN 21 H, Creatinine 0.89, Estim Creat Clear Calc 60.42, Est GFR (MDRD) Af Amer 104, Est GFR (MDRD) Non-Af 86, BUN/Creatinine Ratio 23.6 H, Glucose 146 H, Calcium 8.3 L, Phosphorus 2.1 L, Magnesium 1.9, Total Bilirubin 0.30, AST 10 L, ALT 18, Alkaline Phosphatase 46, Total Protein 5.6 L, Albumin 3.0 L, Globulin 2.6, Albumin/Globulin Ratio 1.2 08/04/23 06:58: WBC 8.0, RBC 4.52 L, Hgb 13.4, Hct 41.7, MCV 92.3, MCH 29.6, MCHC 32.1, RDW Std Deviation 49.3 H, RDW Coeff of Jihan 14.6, Plt Count 186, MPV 10.7, Immature Gran % (Auto) 0.800, Neut % (Auto) 76.4 H, Lymph % (Auto) 8.9 L, Becker % (Auto) 9.4, Eos % (Auto) 4.1, Baso % (Auto) 0.4, Absolute Neuts (auto) 6.1, Absolute Lymphs (auto) 0.71 L, Nucleated RBC % 0, Sodium 141, Potassium 4.1, Chloride 113 H, Carbon Dioxide 25.0, Anion Gap 3 L, BUN 18, Creatinine 0.82, Estim Creat Clear Calc 66.51, Est GFR (MDRD) Af Amer 115, Est GFR (MDRD) Non-Af 95, BUN/Creatinine Ratio 22.1 H, Glucose 96, Calcium 8.9 Micro: Microbiology 08/03/23 12:15 Stool Clostridioides difficile (PCR) - Final 08/02/23 11:30 Urine, Clean Catch Legionella Antigen - Final 08/02/23 11:30 Urine, Clean Catch Streptococcus pneumoniae Antigen (M - Final 08/01/23 21:50 Mucosa - Nasopharyngeal Coronavirus COVID-19 PCR - Final 08/01/23 21:50 Mucosa - Nasopharyngeal Respiratory Panel (PCR) - Final 08/01/23 13:50 Nasal Secretion SARS-CoV-2 & FLU Antigen (Rapid) - Final Physical Exam Narrative GENERAL: cooperative HEENT: Atraumatic; normocephalic EYES; Anicteric, Normal Conjunctiva NECK; supple, normal thyroid, RESPIRATORY: Diminished to auscultation CARDIOVASCULAR: Regular S1 S2, GI: soft, normoactive bowel sounds, : No Renal angle tenderness; EXTREMITIES: No edema, no clubbing, MUSCULOSKELETAL: no muscle wasting NEURO: Awake; no lateralizing signs. SKIN: No Rash PSYCH; Flat affect Assessment & Plan Assessment/Plan (1) Hypoxia: (2) Pneumonia: PLAN: Plan Patient is an 87-year-old gentleman admitted with progressive shortness of breath. Imaging studies obtained on admission demonstrated mild interstitial opacities in the lungs. Admitted to a monitored bed for subsequent management 1. Acute hypoxia ? Secondary to pneumonia with suspected atypical organisms. Patient acute viralrespiratory panel came back unremarkable. Patient started on Rocephin as well as azithromycin in addition to supplemental oxygen and incentive spirometry and flutter valve ? 08/03/2023; patient remains on supplemental oxygen currently 4 L flow per minute 2. Acute diarrhea ? Possibly related to antibiotic use patient has however been placed on enteric precautions whiles C. difficile has been ruled out ? 08/04/2023; stool studies came back negative for C. difficile 3. Coronary artery disease ? With previous history of PCI patient is on recommended medications including dual antiplatelet therapy statin and beta-blockers 4. Hypokalemia -Corrected per protocol 5. Hypertension - Blood pressure controlled, home medications continued with dose adjustment as needed 6. Dyslipidemia -Patient is on statin therapy, continued at home dose 7. BPH with lower urinary obstruction - Patient treated with finasteride 8. GERD -Continue PPI 9. Depression/anxiety -Continue trazodone, citalopram, BuSpar 10. DVT prophylaxis - On enoxaparin Time spent in the patient's overall evaluation,decision-making process, review of diagnostic data, adjustment of management, discussion with other providers, nursing nursing and ancillary staff involved in patient's care documentation, 35 Minutes Charges/Coding Visit Charges Inpatient E&M: 64343 Subs Hosp L2 08/04/23 1109 <Electronically signed by Jerrell Faith MD> Cosigner Signature (if applicable): CC: ~ Signed [facility] Work Phone: 1(344) 635-185801-05-2024 Progress note Author Jerrell Faith [facility] August 03, 2023 9:52am Note Date/Time August 03, 2023 8: 06am [facility] Medical Records Department [address] [place] [address] Progress Note - Hospitalist 08/03/23 0802 MR#: [id number] Acct: [id number] Name: CLARK LYLES Rep #:[id number] : 1935 87 From: Jerrell Faith MD PCP: CHRISTINE Brown Status:ADM I N Location: [place] [address] Reason for Visit Reason for Visit: Diagnoses Pneumonia, unspecified organism (08/01/23) Hypoxemia (08/01/23) Subjective Subjective Patient seen remains on supplemental oxygen currently at 4 L flow per minute. Patient also reports having experienced loose bowel movement. Patient placed under enteric precaution as well as stool for C. difficile has been sent Objective Data Objective Data Vital Signs: Vital Signs Temp Pulse Resp BP Pulse Ox O2 Del Method O2 Flow Rate 97.8 F 58 L 18 150/72 H 96 Nasal Cannula 3 08/03/23 06:11 08/03/23 06:11 08/03/23 06:11 08/03/23 06:11 08/03/23 06:11 08/03/23 06:11 08/03/23 06:11 FiO2 92 08/01/23 20:53 Oxygen Flow Rate (L/min) 3 Oxygen Delivery Method Nasal Cannula Weight: 70.4 kg Body Mass Index (BMI) 22.2 Intake & Output: Intake and Output for Last 24 Hours 08/01/23 08/02/23 08/03/23 23:59 23:59 23:59 Intake Total 305 / 545 1505 / 1505 Output Total 125 / 125 400 / 400 Balance 180 / 420 1105 / 1105 Lab / Micro Data 08/02/23 07:10 08/02/23 07:10 Labs: Laboratory Results - last 24 hr 08/02/23 07:10: Differential Comment COMMENT, Sodium 140, Potassium 3.4 L, Chloride 107, Carbon Dioxide 25.0, Anion Gap 8, BUN 16, Creatinine 0.88, Estim Creat Clear Calc 61.11, Est GFR (MDRD) Af Amer 106, Est GFR (MDRD) Non-Af 87, BUN/Creatinine Ratio 18.2, Glucose 163 H, Calcium 9.0, Magnesium 2.0 Micro: Microbiology 08/02/23 11:30 Urine, Clean Catch Legionella Antigen - Final 08/02/23 11:30 Urine, Clean Catch Streptococcus pneumoniae Antigen (M - Final 08/01/23 21:50 Mucosa - Nasopharyngeal Coronavirus COVID-19 PCR - Final 08/01/23 21:50 Mucosa - Nasopharyngeal Respiratory Panel (PCR) - Final 08/01/23 13:50 Nasal Secretion SARS-CoV-2 & FLU Antigen (Rapid) - Final Radiography Diagnostic Testing: Radiology Impression Echocardiogram 08/01/23 20:23 Interpretation Summary Mild concentric left ventricular hypertrophy. The left ventricular ejection fraction is 65 %. Diastolic function is indeterminate. The left atrium is moderately enlarged. Moderate (2+) tricuspid valve insufficiency. Right ventricular systolic pressure estimated to be 75 mmHg. Ordering Physician: Jasmine Tan Performed By: Ubaldo Tobias RCS Physical Exam Narrative GENERAL: cooperative HEENT: Atraumatic; normocephalic EYES; Anicteric, Normal Conjunctiva NECK; supple, normal thyroid, RESPIRATORY: Diminished to auscultation CARDIOVASCULAR: Regular S1 S2, GI: soft, normoactive bowel sounds, : No Renal angle tenderness; EXTREMITIES: No edema, no clubbing, MUSCULOSKELETAL: no muscle wasting NEURO: Awake; no lateralizing signs. SKIN: No Rash PSYCH; Flat affect Assessment & Plan Assessment/Plan (1) Hypoxia: (2) Pneumonia: PLAN: Plan Patient is an 87-year-old gentleman admitted with progressive shortness of breath. Imaging studies obtained on admission demonstrated mild interstitial opacities in the lungs. Admitted to a monitored bed for subsequent management 1. Acute hypoxia ? Secondary to pneumonia with suspected atypical organisms. Patient acute viralrespiratory panel came back unremarkable. Patient started on Rocephin as well as azithromycin in addition to supplemental oxygen and incentive spirometry and flutter valve ? 08/03/2023; patient remains on supplemental oxygen currently 4 L flow per minute 2. Acute diarrhea ? Possibly related to antibiotic use patient has however been placed on enteric precautions whiles C. difficile has been ruled out 3. Coronary artery disease ? With previous history of PCI patient is on recommended medications including dual antiplatelet therapy statin and beta-blockers 4. Hypokalemia -Corrected per protocol 5. Hypertension - Blood pressure controlled, home medications continued with dose adjustment as needed 6. Dyslipidemia -Patient is on statin therapy, continued at home dose 7. BPH with lower urinary obstruction - Patient treated with finasteride 8. GERD -Continue PPI 9. Depression/anxiety -Continue trazodone, citalopram, BuSpar 10. DVT prophylaxis - On enoxaparin Time spent in the patient's overall evaluation,decision-making process, review of diagnostic data, adjustment of management, discussion with other providers, nursing nursing and ancillary staff involved in patient's care documentation, 50Minutes Charges/Coding Visit Charges Inpatient E&M: 43810 Subs Hosp L3 08/03/23 0952 <Electronically signed by Jerrell Faith MD> Cosigner Signature (if applicable): CC: ~ Signed [facility] Work Phone: 1(962) 911-551601-04-2024 Progress note Author Jerrell Galeasto [facility] August 02, 2023 3:17pm Note Date/Time August 02, 2023 10 :55am [facility] Medical Records Department [address] [place] [id number] Progress Note - Hospitalist 08/02/23 1055 MR#: [id number] Acct: [id number] Name: CLARK LYLES Rep #:[id number] : 1935 87 From: Jerrell Faith MD PCP: CHRISTINE Brown Status:ADM I N Location: [place] [address] Reason for Visit Reason for Visit: Patient is an 87-year-old gentleman admitted with progressive shortness of breath. Imaging studies obtained on admission demonstrated mild interstitial opacities in the lungs. Admitted to a monitored bed for subsequent management Objective Data Objective Data Vital Signs: Vital Signs Temp Pulse Resp BP Pulse Ox O2 Del Method O2 Flow Rate 98.3 F 67 18 119/58 L 97 Nasal Cannula 5 08/02/23 09:05 08/02/23 10:50 08/02/23 10:50 08/02/23 09:05 08/02/23 10:50 08/02/23 10:50 08/02/23 10:50 FiO2 92 08/01/23 20:53 Oxygen Flow Rate (L/min) 5 Oxygen Delivery Method Nasal Cannula Weight: 70.4 kg Body Mass Index (BMI) 22.2 Intake & Output: Intake and Output for Last 24 Hours 07/31/23 08/01/23 08/02/23 23:59 23:59 23:59 Intake Total 305 / 545 785 / 785 Output Total 125 / 125 300 / 300 Balance 180 / 420 485 / 485 Lab / Micro Data 08/02/23 07:10 08/02/23 07:10 Labs: Laboratory Results - last 24 hr 08/01/23 13:10: WBC 9.2, RBC 4.78, Hgb 14.8, Hct 42.8, MCV 89.5, MCH 31.0, MCHC 34.6, RDW Std Deviation 46.8 H, RDW Coeff of Jihan 14.3, Plt Count 175, MPV 11.5, Immature Gran % (Auto) 0.900, Neut % (Auto) 82.0 H, Lymph % (Auto) 5.7 L, Becker %(Auto) 10.3 H, Eos % (Auto) 0.9, Baso % (Auto) 0.2, Absolute Neuts (auto) 7.6, Absolute Lymphs (auto) 0.52 L, Nucleated RBC % 0, Differential Comment SCANNED, D-Dimer Quant (PE/DVT) 0.47, Sodium 136, Potassium 3.1 L, Chloride 103, Carbon Dioxide 26.0, Anion Gap 7, BUN 13, Creatinine 1.10, Estim Creat Clear Calc 50.69, Est GFR (MDRD) Af Amer 82, Est GFR (MDRD) Non-Af 68, BUN/Creatinine Ratio11.8, Glucose 117 H, Calcium 8.8, Troponin I High Sens 8, B-Natriuretic Peptide 198.3 H, Procalcitonin 0.07 08/02/23 07:10: WBC 7.9, RBC 4.39 L, Hgb 13.3, Hct 39.5 L, MCV 90.0, MCH 30.3, MCHC 33.7, RDW Std Deviation 45.1 H, RDW Coeff of Jihan 14.0, Plt Count 166, MPV 11.5, Immature Gran % (Auto) 0.500, Neut % (Auto) 88.2 H, Lymph % (Auto) 5.4 L, Becker % (Auto) 5.8, Eos % (Auto) 0.0, Baso % (Auto) 0.1, Absolute Neuts (auto) 7.0, Absolute Lymphs (auto) 0.43 L, Nucleated RBC % 0, Differential Comment COMMENT, Sodium 140, Potassium 3.4 L, Chloride 107, Carbon Dioxide 25.0, Anion Gap 8, BUN 16, Creatinine 0.88, Estim Creat Clear Calc 61.11, Est GFR (MDRD) Af Amer 106, Est GFR (MDRD) Non-Af 87, BUN/Creatinine Ratio 18.2, Glucose 163 H, Calcium 9.0, Magnesium 2.0 Micro: Microbiology 08/01/23 21:50 Mucosa - Nasopharyngeal Coronavirus COVID-19 PCR - Final 08/01/23 21:50 Mucosa - Nasopharyngeal Respiratory Panel (PCR) - Final 08/01/23 13:50 Nasal Secretion SARS-CoV-2 & FLU Antigen (Rapid) - Final Radiography Diagnostic Testing: Radiology Impression Chest X-Ray 08/01/23 13:55 IMPRESSION: Mild interstitial opacities in the lungs, which may be chronic or inflammatory. Electronically Signed: Demi Briseno MD at 15:00 EST , Physical Exam Narrative GENERAL: cooperative HEENT: Atraumatic; normocephalic EYES; Anicteric, Normal Conjunctiva NECK; supple, normal thyroid, RESPIRATORY: Diminished to auscultation CARDIOVASCULAR: Regular S1 S2, GI: soft, normoactive bowel sounds, : No Renal angle tenderness; EXTREMITIES: No edema, no clubbing, MUSCULOSKELETAL: no muscle wasting NEURO: Awake; no lateralizing signs. SKIN: No Rash PSYCH; Flat affect Assessment & Plan Assessment/Plan (1) Hypoxia: (2) Pneumonia: PLAN: Plan Patient is an 87-year-old gentleman admitted with progressive shortness of breath. Imaging studies obtained on admission demonstrated mild interstitial opacities in the lungs. Admitted to a monitored bed for subsequent management 1. Acute hypoxia ? Secondary to pneumonia with suspected atypical organisms. Patient acute viralrespiratory panel came back unremarkable. Patient started on Rocephin as well as azithromycin in addition to supplemental oxygen and incentive spirometry and flutter valve 2. Coronary artery disease ? With previous history of PCI patient is on recommended medications including dual antiplatelet therapy statin and beta-blockers 3. Hypokalemia -Corrected per protocol 4. Hypertension - Blood pressure controlled, home medications continued with dose adjustment as needed 5. Dyslipidemia -Patient is on statin therapy, continued at home dose 6. BPH with lower urinary obstruction - Patient treated with finasteride 7. GERD -Continue PPI 8. Depression/anxiety -Continue trazodone, citalopram, BuSpar 9. DVT prophylaxis - On enoxaparin Time spent in the patient's overall evaluation,decision-making process, review of diagnostic data, adjustment of management, discussion with other providers, nursing nursing and ancillary staff involved in patient's care documentation, 50Minutes Charges/Coding Visit Charges Inpatient E&M: 22823 Subs Hosp 08/02/23 1517 <Electronically signed by Jerrell Faith MD> Cosigner Signature (if applicable): CC: ~ Signed [facility] Work Phone: 1(812) 755-439401-03-2024 Discharge summary Author Lewis Sutton [facility] August 01, 2023 4:18pm Note Date/Time August 01, 2023 1: 26pm [facility] Medical Records Department [address] [place] [address] Emergency Department Summary 08/01/23 MR#: [id number] Acct: [id number] Name: CLARK LYLES Rep #:[id number] : 1935 87 From: Lewis Sutton MD PCP: CHRISTINE Brown Status:ADM I N Location: [place] [address] HPI History of Present Illness Chief Complaint: Shortness of Breath Narrative Narrative: 87-year-old male past medical history of coronary artery disease and peripheral vascular disease both with stenting presents with shortness of breath and generalized weakness. He states over the last week he has had a cough with yellow sputum production and shortness of breath which she feels is improving. No fevers or chills. No nausea or vomiting. However, his daughter relates history that today he had a low pulse ox in the 80s. He does not wear oxygen athome. He quit smoking 24 years ago. He does not necessarily have a diagnosis of COPD or CHF. He denies any weight gain or swelling of his legs. He states he felt generally tired today and he has dyspnea on exertion as well. [facility] Medical History Acute respiratory failure with hypoxia Anxiety Anxiety and depression Atherosclerosis of coronary artery of [place] heart without angina pectoris BPH (benign prostatic hyperplasia) Chronic anemia COVID-19 virus detected (08/23/20) Diverticulosis Essential (primary) hypertension GERD (gastroesophageal reflux disease) GI bleed (12/2019) Hyperlipidemia Hypoxia Incontinence Peripheral vascular occlusive disease Pneumonia due to COVID-19 virus Home Medications citalopram 20 mg tablet 20 mg PO DAILY DEPRESSION 03/17/14 [History Last Taken 08/01/23] multivitamin 1 ea PO DAILY HEALTH MINENANCE 05/16/17 [History Last Taken 08/01/23] amlodipine 10 mg tablet 10 mg PO DAILY BLOOD PESSURE 09/04/19 [History Last Taken 08/01/23] tamsulosin 0.4 mg capsule 0.4 mg PO DAILY PROSTATE 09/04/19 [History Last Taken 08/01/23] niacin 500 mg capsule,extended release 500 mg PO DAILY SUPPLEMENT 09/16/19 [History Last Taken 08/01/23] ascorbic acid (vitamin C) 1,000 mg tablet 1,000 mg PO DAILY SUPPLEMENT 01/18/20 [History Last Taken 08/01/23] atorvastatin 10 mg tablet 10 mg PO DAILY CHOLESTEROL 08/25/20 [History Last Taken 08/01/23] clopidogrel 75 mg tablet 75 mg PO DAILY BLOOD THINNER 08/25/20 [History Last Taken 08/01/23] finasteride 5 mg tablet 5 mg PO DAILY PROSTATE 08/26/20 [History Last Taken 08/01/23] hydrochlorothiazide 25 mg tablet 25 mg PO DAILY BLOOD PRESSURE #90 tabs 09/20/20 [Rx Last Taken 08/01/23] aspirin 81 mg tablet,delayed release (Adult Aspirin Regimen) 81 mg PO DAILY HEART HEALTH 04/25/21 [History Last Taken 08/01/23] buspirone 5 mg tablet 5 mg PO TID 08/01/23 [History Last Taken 08/01/23] hydrocodone-acetaminophen 5-325mg 5mg-325mg 1 tab PO Q6H PRN PAIN 08/01/23 [History Last Taken Unknown] latanoprost 0.005 % eye drops 1 drp ophthalmic (eye) QHS GLAUCOMA 08/01/23 [History Last Taken 07/31/23] metoprolol succinate 25 mg tablet,extended release 24 hr 25 mg PO DAILY BLOOD PRESSURE 08/01/23 [History Last Taken 08/01/23] omeprazole 40 mg capsule,delayed release 40 mg PO DAILY ACID REFLUX 08/01/23 [History Last Taken 08/01/23] trazodone 50 mg tablet 50 mg PO QHS SLEEP 08/01/23 [History Last Taken 08/01/23] Allergy/AdvReac Type Severity Reaction Status Date / Time Sulfa (Sulfonamide Allergy Rash Verified 08/01/23 12:45 Antibiotics) lisinopril AdvReac Other Verified 08/01/23 12:45 Family History Father CVA (cerebral vascular accident) Mother CVA (cerebral vascular accident) Hypertension Surgical History History of angioplasty of peripheral vessel (08/2017) History of colonoscopy (12/2019) History of coronary artery stent placement (09/08/19) History of esophagogastroduodenoscopy (EGD) (12/2019) History of herniorrhaphy Social History Smoking Status: Former smoker ROS ROS ED ROS Narrative Constitutional: No fever, no chills. Neurolysed weakness. Low pulse ox in the 80s according to daughter. HEENT: No sore throat. No neck pain. No loss of vision. No rhinorrhea. Cardiovascular: No chest pain. No palpitations. No pedal edema. Respiratory: Positive productive cough, positive dyspnea on exertion and shortness of breath. Abdominal: No abdominal pain. No nausea. No vomiting. Genitourinary: No dysuria. No hematuria. Musculoskeletal: No myalgias. No arthralgias. Neurologic: No headaches. No dizziness. No lightheadedness. Skin: No rash. No change in color. Psychiatric: No depression. No anxiety. EXAM Physical Exam Narrative Exam Narrative: Afebrile. Vital signs noted. HEENT: Normocephalic. Atraumatic. PERRL, EOMI. Neck soft and supple. No pointtenderness or step off. Cardiovascular: Regular rate and rhythm. No murmurs, rubs, or gallops appreciated. Respiratory: No tachypnea. Decreased breath sounds bilateral bases, expiratory wheeze right greater than left at bases. No distress. Gastrointestinal: Abdomen soft, nontender, with normoactive bowel sounds. No rebound or guarding. Neurological: Awake. Alert. Nonfocal, nonlateralizing. Skin: No rash. Normal color. No pallor. Musculoskeletal: No pedal edema. Full range of motion extremities. Const Vital Signs: 08/01/23 12:44 08/01/23 13:04 08/01/23 13:05 Temperature 97.9 F Temperature Source Temporal Pulse Rate 70 70 Respiratory Rate 20 H 19 H Respiratory Effort Short of Breath Respiratory Depth Respiratory Pattern Normal Blood Pressure 129/61 H 135/99 H Blood Pressure Mean 83 111 Pulse Ox 81 92 Oxygen Delivery Method Room Air Nasal Cannula Oxygen Flow Rate (L/min) 3 08/01/23 13:05 08/01/23 13:40 08/01/23 13:40 Temperature Temperature Source Pulse Rate 64 Respiratory Rate 15 Respiratory Effort Short of Breath Respiratory Depth Normal Respiratory Pattern Normal Normal Blood Pressure Blood Pressure Mean Pulse Ox 95 Oxygen Delivery Method Nasal Cannula Nasal Cannula Oxygen Flow Rate (L/min) 3 3 08/01/23 13:21 Temperature Temperature Source Pulse Rate Respiratory Rate Respiratory Effort Respiratory Depth Respiratory Pattern Blood Pressure Blood Pressure Mean Pulse Ox 92 Oxygen Delivery Method Nasal Cannula Oxygen Flow Rate (L/min) 3 MDM MDM MDM Narrative Medical decision making narrative: Concern is for pneumonia versus pneumothorax. I have low suspicion for pulmonary embolism as he is not tachycardic. Patient was 81% on room air so is placed on nasal cannula oxygen. He will be administered ipratropium and albuterol aerosolized treatment along with Solu-Medrol for suppose it/assume COPD. Given his hypoxia, I do feel chest x-ray is indicated to help rule out pneumothorax. I will also obtain blood work to make sure he is not profoundly anemic although clinically on exam he does not appear that way. I have low suspicion for CHF as he does not have that in his history and he does not appearfluid overloaded. I reviewed his laboratory work and he has normal white count 9.2, hemoglobin normal at 14.8, hematocrit 42.8, platelet count normal at 175. Review of his electrolyte panel shows potassium low at 3.1, and he was administered 40 mill equivalents orally of potassium. Chloride is normal at 103. BUN normal at 13 with creatinine 1.10. Glucose appropriately elevated at 117 with a normal aniongap of 7. High- sensitivity troponin is 8. Although BNP is slightly elevated at198, this appears to be around his baseline with previous values being elevated. Chest x-ray in 1 view interpreted by myself shows no evidence of pneumothorax or consolidation, but there is interstitial edema versus opacities. He will be treated as a pneumonia with azithromycin and Zithromax intravenously. She did ambulate to the bathroom without his oxygen, and when he was placed back on the monitor/pulse ox he was low in the 70s with good waveform. Subjectively he states he did not feel short of breath, however. Given his hypoxia, I discussedthe patient with Dr. Jasmine Tan for admission to the PCU. She would like a D-dimer added and will check this as well. Patient had received albuterol and Solu-Medrol. He may have undiagnosed COPD as he quit smoking in 1999. Disposition is admit in stable condition. History & Record Review Discussion w/independent historian: Patient and Family Lab Data Attestation: I reviewed the patient's lab results. Labs: Laboratory Results - last 24 hr 08/01/23 13:10 WBC 9.2 RBC 4.78 Hgb 14.8 Hct 42.8 MCV 89.5 MCH 31.0 MCHC 34.6 RDW Std Deviation 46.8 H RDW Coeff of Jihan 14.3 Plt Count 175 MPV 11.5 Immature Gran % (Auto) 0.900 Neut % (Auto) 82.0 H Lymph % (Auto) 5.7 L Becker % (Auto) 10.3 H Eos % (Auto) 0.9 Baso % (Auto) 0.2 Absolute Neuts (auto) 7.6 Absolute Lymphs (auto) 0.52 L Nucleated RBC % 0 Differential Comment SCANNED Sodium 136 Potassium 3.1 L Chloride 103 Carbon Dioxide 26.0 Anion Gap 7 BUN 13 Creatinine 1.10 Estim Creat Clear Calc 50.69 Est GFR (MDRD) Af Amer 82 Est GFR (MDRD) Non-Af 68 BUN/Creatinine Ratio 11.8 Glucose 117 H Calcium 8.8 Troponin I High Sens 8 B-Natriuretic Peptide 198.3 H Radiography Chest X-Ray - ED: 1 View and Read by ED Physician Diagnostic Testing: Clinical Impression(s) from Imaging Studies Chest X-Ray 08/01/23 13:55 IMPRESSION: Mild interstitial opacities in the lungs, which may be chronic or inflammatory. Electronically Signed: Demi Briseno MD at 15:00 EST Reading Location ID and State: [facility] / [place] Tel , Service support , Discharge Plan Dx/Rx/DC Orders Clinical Impression: Hypoxia, Pneumonia, SOB (shortness of breath), Hypokalemia Disposition Disposition: Acute Care [facility] What to do if you have Problems For any increased pain, shortness of breath, bleeding, nausea or vomiting, chestpain, or any unexpected problems, contact your Primary Care Provider. Call [facility] ([phone]) or report to the closest Emergency Room. Call 911 if necessary. 08/01/23 1618 <Electronically signed by Lewis Sutton MD> Cosigner Signature (if applicable): CC: CHRISTINE Brown ~ Signed [facility] Work Phone: 1(409) 382-114101-03-2024 Discharge summary Author Lewis Sutton [facility] August 01, 2023 4:18pm Note Date/Time August 01, 2023 1: 26pm [facility] Medical Records Department [address] [place] [id number] Emergency Department Summary 08/01/23 MR#: [id number] Acct: [id number] Name: CLARK LYLES Rep #:[id number] : 1935 87 From: Lewis Sutton MD PCP: CHRISTINE Brown Status:ADM I N Location: [place] [address] HPI History of Present Illness Chief Complaint: Shortness of Breath Narrative Narrative: 87-year-old male past medical history of coronary artery disease and peripheral vascular disease both with stenting presents with shortness of breath and generalized weakness. He states over the last week he has had a cough with yellow sputum production and shortness of breath which she feels is improving. No fevers or chills. No nausea or vomiting. However, his daughter relates history that today he had a low pulse ox in the 80s. He does not wear oxygen athome. He quit smoking 24 years ago. He does not necessarily have a diagnosis of COPD or CHF. He denies any weight gain or swelling of his legs. He states he felt generally tired today and he has dyspnea on exertion as well. [facility] Medical History Acute respiratory failure with hypoxia Anxiety Anxiety and depression Atherosclerosis of coronary artery of [place] heart without angina pectoris BPH (benign prostatic hyperplasia) Chronic anemia COVID-19 virus detected (08/23/20) Diverticulosis Essential (primary) hypertension GERD (gastroesophageal reflux disease) GI bleed (12/2019) Hyperlipidemia Hypoxia Incontinence Peripheral vascular occlusive disease Pneumonia due to COVID-19 virus Home Medications citalopram 20 mg tablet 20 mg PO DAILY DEPRESSION 03/17/14 [History Last Taken 08/01/23] multivitamin 1 ea PO DAILY HEALTH MINENANCE 05/16/17 [History Last Taken 08/01/23] amlodipine 10 mg tablet 10 mg PO DAILY BLOOD PESSURE 09/04/19 [History Last Taken 08/01/23] tamsulosin 0.4 mg capsule 0.4 mg PO DAILY PROSTATE 09/04/19 [History Last Taken 08/01/23] niacin 500 mg capsule,extended release 500 mg PO DAILY SUPPLEMENT 09/16/19 [History Last Taken 08/01/23] ascorbic acid (vitamin C) 1,000 mg tablet 1,000 mg PO DAILY SUPPLEMENT 01/18/20 [History Last Taken 08/01/23] atorvastatin 10 mg tablet 10 mg PO DAILY CHOLESTEROL 08/25/20 [History Last Taken 08/01/23] clopidogrel 75 mg tablet 75 mg PO DAILY BLOOD THINNER 08/25/20 [History Last Taken 08/01/23] finasteride 5 mg tablet 5 mg PO DAILY PROSTATE 08/26/20 [History Last Taken 08/01/23] hydrochlorothiazide 25 mg tablet 25 mg PO DAILY BLOOD PRESSURE #90 tabs 09/20/20 [Rx Last Taken 08/01/23] aspirin 81 mg tablet,delayed release (Adult Aspirin Regimen) 81 mg PO DAILY HEART HEALTH 04/25/21 [History Last Taken 08/01/23] buspirone 5 mg tablet 5 mg PO TID 08/01/23 [History Last Taken 08/01/23] hydrocodone-acetaminophen 5-325mg 5mg-325mg 1 tab PO Q6H PRN PAIN 08/01/23 [History Last Taken Unknown] latanoprost 0.005 % eye drops 1 drp ophthalmic (eye) QHS GLAUCOMA 08/01/23 [History Last Taken 07/31/23] metoprolol succinate 25 mg tablet,extended release 24 hr 25 mg PO DAILY BLOOD PRESSURE 08/01/23 [History Last Taken 08/01/23] omeprazole 40 mg capsule,delayed release 40 mg PO DAILY ACID REFLUX 08/01/23 [History Last Taken 08/01/23] trazodone 50 mg tablet 50 mg PO QHS SLEEP 08/01/23 [History Last Taken 08/01/23] Allergy/AdvReac Type Severity Reaction Status Date / Time Sulfa (Sulfonamide Allergy Rash Verified 08/01/23 12:45 Antibiotics) lisinopril AdvReac Other Verified 08/01/23 12:45 Family History Father CVA (cerebral vascular accident) Mother CVA (cerebral vascular accident) Hypertension Surgical History History of angioplasty of peripheral vessel (08/2017) History of colonoscopy (12/2019) History of coronary artery stent placement (09/08/19) History of esophagogastroduodenoscopy (EGD) (12/2019) History of herniorrhaphy Social History Smoking Status: Former smoker ROS ROS ED ROS Narrative Constitutional: No fever, no chills. Neurolysed weakness. Low pulse ox in the 80s according to daughter. HEENT: No sore throat. No neck pain. No loss of vision. No rhinorrhea. Cardiovascular: No chest pain. No palpitations. No pedal edema. Respiratory: Positive productive cough, positive dyspnea on exertion and shortness of breath. Abdominal: No abdominal pain. No nausea. No vomiting. Genitourinary: No dysuria. No hematuria. Musculoskeletal: No myalgias. No arthralgias. Neurologic: No headaches. No dizziness. No lightheadedness. Skin: No rash. No change in color. Psychiatric: No depression. No anxiety. EXAM Physical Exam Narrative Exam Narrative: Afebrile. Vital signs noted. HEENT: Normocephalic. Atraumatic. PERRL, EOMI. Neck soft and supple. No pointtenderness or step off. Cardiovascular: Regular rate and rhythm. No murmurs, rubs, or gallops appreciated. Respiratory: No tachypnea. Decreased breath sounds bilateral bases, expiratory wheeze right greater than left at bases. No distress. Gastrointestinal: Abdomen soft, nontender, with normoactive bowel sounds. No rebound or guarding. Neurological: Awake. Alert. Nonfocal, nonlateralizing. Skin: No rash. Normal color. No pallor. Musculoskeletal: No pedal edema. Full range of motion extremities. Const Vital Signs: 08/01/23 12:44 08/01/23 13:04 08/01/23 13:05 Temperature 97.9 F Temperature Source Temporal Pulse Rate 70 70 Respiratory Rate 20 H 19 H Respiratory Effort Short of Breath Respiratory Depth Respiratory Pattern Normal Blood Pressure 129/61 H 135/99 H Blood Pressure Mean 83 111 Pulse Ox 81 92 Oxygen Delivery Method Room Air Nasal Cannula Oxygen Flow Rate (L/min) 3 08/01/23 13:05 08/01/23 13:40 08/01/23 13:40 Temperature Temperature Source Pulse Rate 64 Respiratory Rate 15 Respiratory Effort Short of Breath Respiratory Depth Normal Respiratory Pattern Normal Normal Blood Pressure Blood Pressure Mean Pulse Ox 95 Oxygen Delivery Method Nasal Cannula Nasal Cannula Oxygen Flow Rate (L/min) 3 3 08/01/23 13:21 Temperature Temperature Source Pulse Rate Respiratory Rate Respiratory Effort Respiratory Depth Respiratory Pattern Blood Pressure Blood Pressure Mean Pulse Ox 92 Oxygen Delivery Method Nasal Cannula Oxygen Flow Rate (L/min) 3 MDM MDM MDM Narrative Medical decision making narrative: Concern is for pneumonia versus pneumothorax. I have low suspicion for pulmonary embolism as he is not tachycardic. Patient was 81% on room air so is placed on nasal cannula oxygen. He will be administered ipratropium and albuterol aerosolized treatment along with Solu-Medrol for suppose it/assume COPD. Given his hypoxia, I do feel chest x-ray is indicated to help rule out pneumothorax. I will also obtain blood work to make sure he is not profoundly anemic although clinically on exam he does not appear that way. I have low suspicion for CHF as he does not have that in his history and he does not appearfluid overloaded. I reviewed his laboratory work and he has normal white count 9.2, hemoglobin normal at 14.8, hematocrit 42.8, platelet count normal at 175. Review of his electrolyte panel shows potassium low at 3.1, and he was administered 40 mill equivalents orally of potassium. Chloride is normal at 103. BUN normal at 13 with creatinine 1.10. Glucose appropriately elevated at 117 with a normal aniongap of 7. High- sensitivity troponin is 8. Although BNP is slightly elevated at198, this appears to be around his baseline with previous values being elevated. Chest x-ray in 1 view interpreted by myself shows no evidence of pneumothorax or consolidation, but there is interstitial edema versus opacities. He will be treated as a pneumonia with azithromycin and Zithromax intravenously. She did ambulate to the bathroom without his oxygen, and when he was placed back on the monitor/pulse ox he was low in the 70s with good waveform. Subjectively he states he did not feel short of breath, however. Given his hypoxia, I discussedthe patient with Dr. Jasmine Tan for admission to the PCU. She would like a D-dimer added and will check this as well. Patient had received albuterol and Solu-Medrol. He may have undiagnosed COPD as he quit smoking in 1999. Disposition is admit in stable condition. History & Record Review Discussion w/independent historian: Patient and Family Lab Data Attestation: I reviewed the patient's lab results. Labs: Laboratory Results - last 24 hr 08/01/23 13:10 WBC 9.2 RBC 4.78 Hgb 14.8 Hct 42.8 MCV 89.5 MCH 31.0 MCHC 34.6 RDW Std Deviation 46.8 H RDW Coeff of Jihan 14.3 Plt Count 175 MPV 11.5 Immature Gran % (Auto) 0.900 Neut % (Auto) 82.0 H Lymph % (Auto) 5.7 L Becker % (Auto) 10.3 H Eos % (Auto) 0.9 Baso % (Auto) 0.2 Absolute Neuts (auto) 7.6 Absolute Lymphs (auto) 0.52 L Nucleated RBC % 0 Differential Comment SCANNED Sodium 136 Potassium 3.1 L Chloride 103 Carbon Dioxide 26.0 Anion Gap 7 BUN 13 Creatinine 1.10 Estim Creat Clear Calc 50.69 Est GFR (MDRD) Af Amer 82 Est GFR (MDRD) Non-Af 68 BUN/Creatinine Ratio 11.8 Glucose 117 H Calcium 8.8 Troponin I High Sens 8 B-Natriuretic Peptide 198.3 H Radiography Chest X-Ray - ED: 1 View and Read by ED Physician Diagnostic Testing: Clinical Impression(s) from Imaging Studies Chest X-Ray 08/01/23 13:55 IMPRESSION: Mild interstitial opacities in the lungs, which may be chronic or inflammatory. Electronically Signed: Demi Briseno MD at 15:00 EST Reading Location ID and State: [facility] / [place] Tel , Service support , Discharge Plan Dx/Rx/DC Orders Clinical Impression: Hypoxia, Pneumonia, SOB (shortness of breath), Hypokalemia Disposition Disposition: Acute Care [facility] What to do if you have Problems For any increased pain, shortness of breath, bleeding, nausea or vomiting, chestpain, or any unexpected problems, contact your Primary Care Provider. Call [facility] ([phone]) or report to the closest Emergency Room. Call 911 if necessary. 08/01/23 1618 <Electronically signed by Lewis Sutton MD> Cosigner Signature (if applicable): CC: CHRISTINE Brown ~ Signed [facility] Work Phone: 1(595) 106-564312-12-2023 Miscellaneous Notes* Telephone Encounter - Davina Fajardo - 07/10/2023 9:33 AM EST Patient has been identified by name and date of : Yes Requested Prescriptions Pending Prescriptions Disp Refills tamsulosin (FLOMAX) 0.4 mg 180 capsule 3 Sig: Take 2 capsules by mouth once daily. RX INSTRUCTIONS: Patient aware RX will be sent to [facility] pharmacy. No need to notify patient. Davina Fajardo documented in this encounterOhio State Health System12-04-2023 Miscellaneous Notes* Telephone Encounter - Shirley Rivera Ma - 07/02/2023 11:07 AM EST Left detailed message with daughter. Shirley Rodhang Massey * Telephone Encounter - Shirley Rivera Ma - 07/02/2023 9:55 AM EST ----- Message from Radha Durbin PA-C sent at 07/02/2023 7:50 AM EST ----- Please advise WBC mildly elevated. Likely r/t viral infection with recent diarrhea. Thanks, Chaz Durbin PA-C documented in this encounterOhio State Health System11-30-2023 History of Present illness Narrative* Radha Durbin PA-C - 06/28/2023 9:00 AM EST 87 year old male with c/o here for 3 month follow up Still having issues with diarrhea, watery to mushy. No pain Moving bowels twice a day, previously once a day. Taking Immodium AD Coronary artery disease involving [place] coronary artery of [place] heart without angina pectoris (primary encounter diagnosis) S/p primary angioplasty with coronary stent Angina pectoris ([facility]) Atherosclerosis of aorta ([facility]) Essential hypertension, benign Hyperlipidemia ldl goal <100 Pad (peripheral artery disease) ([facility]) Cardiovascular interval hx: Sees [facility]: no new records 02/27/2022 exercise myocardial [...] to suggest ischemia. 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 [...] because he felt bad in the mornings. [place] better after he stopped- probably a year ago. Hyperbilirubinemia Gastroesophageal reflux disease, unspecified whether esophagitis present Current medication: Omeprazole 40mg daily. Current symptoms: No appetite, eats small bits, no real meals. Last Mg level if on PPI chronically: [...] lipoma performed by Dr. Robe Mackenzie at [facility] REVSC OPN/PRQ FEM/POP W/STNT/ANGIOP SM VSL 03-18-14 [...] Chronic Blood Loss Coronary Artery Disease Involving [place] Coronary Artery of [place] Heart S/P Primary Angioplasty With Coronary Stent [...] 1 tablet by mouth once daily. 90 tablet3 clopidogrel (PLAVIX) 75 mg tablet Take 1 [...] refill. ASSESSMENT/PLAN: 1. Coronary artery disease involving [place] coronary artery of [place] heart without angina pectoris- ICD9: 414.01, ICD10: I25.10 (primary diagnosis) 2. [...] regular exercise 7. PAD (peripheral artery disease) (HCC) - ICD9: 443.9, ICD10: I73.9 Stable, asymptomatic. 8. Parkinson's disease without dyskinesia, with fluctuating manifestations - ICD9: 332.0, ICD10: G20.A2 Stopped ropinerole No significant sx. 9. Hyperbilirubinemia - ICD9: 782.4, ICD10: E80.6 Mild, stable 10. Gastroesophageal reflux disease, unspecified whether esophagitis present - ICD9: 530.81, ICD10:K21.9 Controlled with omeprazole: continue 11. Benign prostatic hyperplasia with nocturia - ICD9: 600.01, 788.43, ICD10: N40.1, R35.1 stable 12. Anxiety state - ICD9: 300.00, ICD10: F41.1 Controlled with medication Periods of loneliness, manages with daughter helping Some of this note may have been copied and pasted for the purpose of history context and comparisonand has been adjusted for changes in prior data. Radha Durbin PA-C documented in this encounterOhio State Health System11-20-2023 Miscellaneous Notes* Telephone Encounter - Naty Cardona LPN - 06/18/2023 9:36 AM EST Appt scheduled 06/28/23 * Telephone Encounter - Oran Sydney Kathleen - 06/18/2023 8:02 AM EST Patient has been identified by name and date of : Yes Requested Prescriptions Pending Prescriptions Disp Refills traZODone (DESYREL) 50 mg tablet 90 tablet 1 Sig: Take 1 tablet by mouth daily at bedtime. RX INSTRUCTIONS: Patient aware RX will be sent to pharmacy. No need to notify patient. Sydney Ashtoning Pss documented in this encounterOhio State Health System10-27-2023 History of Present illness Narrative* Jair Marvin MD - 05/25/2023 11:18 AM EDT Patient presents with: Edema: Redness, swelling, warmth, painful to touch x 1 week hit on floor polisher HPI: Skin Lesion: Location: right luevano Duration: scraped and bruised getting off his mower 1 week ago. His daughter saw it today. Pruritis/Pain: painful the first few steps in the morning but improves with use Change: maybe less red and swollen Drainage/blister/pustule/ulceration: abrasion, has never bled or drained, no [...] as increasing redness, pain, swelling, purulent drainage, orfever/malaise. He can start antibiotic with any of these signs. Jair Marvin MD documented in this encounterOhio State Health System10-23-2023 Miscellaneous Notes* Telephone Encounter - Shirley Rivera Ma - 05/21/2023 1:52 PM EDT No answer no voicemail Letter sent to patient Shirley Rodhang Massey * Telephone Encounter - Clarence Winters LPN - 05/16/2023 11:35 AM EDT No answer, unable to leave message. * Telephone Encounter - Shirley Rivera Ma - 05/15/2023 4:02 PM EDT 2nd attempt. No answer, no voice mail * Telephone Encounter - Shirley Rivera Ma - 05/14/2023 10:09 AM EDT Attempted to call patient. No answer, no voicemail. Shirley Rivera Ma * Telephone Encounter - Shirley Rivera Ma - 05/14/2023 10:09 AM EDT ----- Message from Radha Durbin PA-C sent at 05/13/2023 7:57 PM EDT ----- Please let him know CT abd/pel showed nothing worrisome. He does have narrowing of abdominal arteries but nothing > 60% so not imparining flow. Thanks, Chaz Durbin PA-C documented in this encounterOhio State Health System10-14-2023 Miscellaneous Notes* Telephone Encounter - Tracy Cedillo RN - 05/12/2023 8:35 AM EDT Patient's Daughter Pili calls and notified of results and provider recommendations. Pili states that she is going to check with patient as well as with her brother to see if they want urology to beconsulted. Tracy Cedillo RN * Telephone Encounter - Shirley Rivera Ma - 05/11/2023 5:06 PM EDT Attempted to call, no answer * Telephone Encounter - Shirley Rivera Ma - 05/11/2023 5:05 PM EDT ----- Message from Radha Durbin PA-C sent [...] Thanks, Chaz Durbin PA-C documented in this encounterOhio State Health System10-13-2023 Miscellaneous Notes* Telephone Encounter - Radha Durbin PA-C - 05/11/2023 4:54 PM EDT See other TE Thanks, Chaz Durbin PA-C * Telephone Encounter - Whit Sheridan RN - 05/11/2023 2:30 PM EDT Pt's daughter Pili asking Chaz Durbin to advise on pt's recent CT scan results, when able. Thank you. documented in this encounterOhio State Health System10-13-2023 History of Present illness Narrative* Krissy iMchel RT(R) - 05/11/2023 11:20 AM EDT Radiology Service Progress Note DATE OF SERVICE: [...] creatinine assay has traceable calibration to isotope dilution- mass spectrometry. Refer to KDIGO guidelines for clinical interpretation. In patients with unstable renal function, e.g. those with acute kidney injury, the eGFRmay not accurately reflect actual GFR. eGFR- Date Value Ref Range Status 04/16/2021 >60 Final P.O.C.T. RESULTS: POC done: Yes, See Lab Tab May 11, 2023 TREATMENT: N/A PERIPHERAL IV DATA: Ambulatory: A peripheral IV was started in the Left antecubital site with a Angio cath: 18 gauge. RADIOLOGY DEPARTMENT: CT; Exam(s) Completed: CTA Abdomen Pelvis SIGNATURE: RT Emile(R) PATIENT NAME: Clark Lyles DATE: May 11, 2023 TIME: 4:07 PM documented in this encounterOhio State Health System07-13-2023 Instructions* Patient Instructions* Radha Durbin PA-C - 02/08/2023 10:02 AM EDT Ice/ moist heat, lineaments, OTC analgesics as needed. Stretching and posture reviewed. See handout on piriformis stretching. documented in this encounterOhio State Health System07-13-2023 History of Present illness Narrative* Radha Durbin PA-C - 02/08/2023 9:43 AM EDT 87 year old male with c/o lower [...] disc space narrowing and osteophyte formation. Sacroiliac jointsappear normal. Vascular calcifications are noted. HISTORIES FAMILY [...] lipoma performed by Dr. Robe Mackenzie at [facility] REVSC OPN/PRQ FEM/POP W/STNT/ANGIOP SM VSL 03-18-14 [...] Chronic Blood Loss Coronary Artery Disease Involving [place] Coronary Artery of [place] Heart S/P Primary Angioplasty With Coronary Stent [...] 1 tablet by mouth once daily. 90 tablet3 clopidogrel (PLAVIX) 75 mg tablet Take 1 [...] or gallop. No lifts, heaves, or rubs. 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 Left [...] energy technique to lumbar spine, HVLA gently tothe left SIJ. Patient had relief with pain, [...] history context and comparison. documented in this encounterOhio State Health System07-05-2023 History of Present illness Narrative* Rebekah Salazar PA-C - 01/31/2023 1:38 PM EDT This note was created using [employer]. Subjective Clark Lyles is a 87 year old male. HPI Patient presents with right lower back pain rating into his right leg over the past 2 days. He denies any injury or trauma. Feels better if he stretches the leg or with sitting. It is worsening if heis standing for longer periods of time. No numbness or tingling. No falls recently. No rash. He hadback problem several years ago but since he has been working that had improved. No loss of bowel orbladder control. Here today with family member. Review [...] 1 tablet by mouth once daily. 90 tablet3 clopidogrel (PLAVIX) 75 mg tablet Take 1 [...] lipoma performed by Dr. Robe Mackenzie at [facility] REVSC OPN/PRQ FEM/POP W/STNT/ANGIOP SM VSL 03-18-14 [...] care. - XR LUMBAR GENERAL 3V AP/LAT/L5-S1 Rebekah Salazar PA-C documented in this encounterOhio State Health System07-05-2023 History of Present illness Narrative* Yeimi Prajapati RT(R) - 01/31/2023 11:10 AM EDT Radiology Service Progress Note PATIENT NAME: Clark Lyles DATE OF SERVICE: January 31, 2023 TIME: 11:04 AM PATIENT IDENTITY VERIFICATION COMPLETED USING TWO (2) IDENTIFIERS: Name and Date of confirmedby patient verbally. FALL SCREENING: Has the patient [...] RT Mathieu(R) January 31, 2023 11:04 AM documented in this encounterOhio State Health System06-16-2023 Miscellaneous Notes* Telephone Encounter - Юлия Deng LPN - 01/12/2023 10:22 AM EDT Patient daughter Pili petty father has been [...] you. Юлия Deng LPN documented in this encounterOhio State Health System05-04-2023 Miscellaneous Notes* Telephone Encounter - Whit Sheridan RN - 11/30/2022 10:38 AM EDT Images from the original note were not included. Patient's daughter Pili Payne, notified. ZACKARY Vines PA-C 11/30/2022 9:01 AM EDT Please let him know labs all look good. Thanks, Chaz Durbin PA-C documented in this encounterOhio State Health System05-01-2023 Instructions* Patient Instructions* Radha Durbin PA-C - 11/27/2022 3:54 PM EDT Trazodone (Patient Education - Adult Medication) You must carefully read the Consumer Information Use and Disclaimer below in order to understand and correctly use this information Pronunciation (RUDOLPH oh done) Brand Names: [place]-TraZODone; APO-TraZODone D; DOM-TraZODone; MYLAN- TraZODone [DSC]; Oleptro; PMS-TraZODone; RATIO-TraZODone [DSC]; TEVA-TraZODone; TraZODone-100; [...] or change the dose of any drug withoutchecking with your doctor. What are some things I need to know or do while I take this drug? Tell all of your health care providers that you take this drug. This includes your doctors, nurses,pharmacists, and dentists. Avoid driving and doing other tasks or actions that call for you to be alert until you see how thisdrug affects you. To lower the chance of [...] has happened with this drug. This may raisethe chance of sudden . Talk with the doctor. This drug may raise the chance of bleeding. Sometimes, bleeding can be life- threatening. Talk with the doctor. Some people may have a higher chance of eye problems with this drug. Your doctor may want you to have an eye exam to see if you have a higher chance of these eye problems. Call your doctor right awayif you have eye pain, change in eyesight, or swelling or redness in or around the eye. This drug can cause low sodium levels. Very low sodium levels can be life- threatening, leading to seizures, passing out, trouble breathing, or . If you are 65 or older, use this drug with care. You could have more side effects. Tell your doctor if you are , plan on getting , or are breast- feeding. You will need to talk about the [...] right away if you have any of thefollowing signs or symptoms that may be related to a very bad side effect: Signs of an allergic reaction, like rash; hives; itching; red, swollen, blistered, or peeling skin with or without fever; wheezing; tightness in the chest or throat; trouble breathing, swallowing, ortalking; unusual hoarseness; or swelling of the mouth, [...] syndrome may happen. The risk may be greaterif you also take certain other drugs. Call your doctor right away if you have agitation; change in balance; confusion; hallucinations; fever; fast or abnormal heartbeat; flushing; muscle twitching orstiffness; seizures; shivering or shaking; sweating a lot; severe diarrhea, upset stomach, or throwi ng up; or very bad headache. What are some other side effects of this drug? All drugs may cause side effects. However, many people have no side effects or only have minor sideeffects. Call your doctor or get medical help [...] all information given to you. Follow all instructionsclosely. All products: If you feel sleepy after [...] If you have any questions about this drug,please talk with your doctor, nurse, pharmacist, or other health care provider. If you think there has been an overdose, call your poison control center or get medical care right away. Be ready to tell or show what was taken, how much, and when it happened. Last Reviewed Date 2019-11-20 documented in this encounterOhio State [facility] System05-01-2023 History of Present illness Narrative* Radha Durbin PA-C - 11/27/2022 3:19 PM EDT 87 year old male with c/o here [...] general. Has a lot of gas rifting up. No heart burn . Bowels are loose [...] (primary encounter diagnosis) Pad (peripheral artery disease) ([facility]) Hyperlipidemia ldl goal <100 Essential hypertension, benign Angina pectoris (hcc) Cardiovascular interval hx: Sees [facility] 02/27/2022 exercise myocardial perfusion stress test [...] to suggest ischemia. 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 [...] current. In past notes: Yes: occurs in gnosticism, sudden feeling of lightheadedness,pallor, weakness, lasts about 20 minutes. Seemed better when he went outside. Has happened 2 years ago. Father had low sugar. Doesn't eat prior to gnosticism and then goes out to [facility] after. Unexplainable fatigue No Leg swelling: No Nausea: No diaphoresis: No Heartburn: No Claudication: No Smoking: No Following Low cholesterol, high fiber diet? Yes If on statin: muscle aches? No If on statin: GI sx or diarrhea? No Additional history does a lot of mowing. 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 Lab review: [...] lipoma performed by Dr. Robe Mackenzie at [facility] REVSC OPN/PRQ FEM/POP W/STNT/ANGIOP SM VSL 03-18-14 [...] Chronic Blood Loss Coronary Artery Disease Involving [place] Coronary Artery of [place] Heart S/P Primary Angioplasty With Coronary Stent [...] this visit. COVID-19 VACCINE(4 - Booster for [employer] series) due on 07/13/2021 ADVANCE DIRECTIVE DISCUSSION [...] limiting caffeine, no meals three hours before sleep,and head of bed elevation - OMEPRAZOLE 20 [...] TABLET Radha Durbin PA-C documented in this encounterOhio State Health System01-09-2023 Miscellaneous Notes* Telephone Encounter - Clarence Winters LPN - 08/07/2022 2:06 PM EST Patient phones requesting refills as follows: Requested [...] Please review and advise. Clarence Winters LPN * Telephone Encounter - Charity Zhou - 08/07/2022 1:32 PM EST Patient has been identified by name and [...] notify patient. Charity Zhou documented in this encounterOhio State Health System12-09-2022 Miscellaneous Notes* Telephone Encounter - Tracy Lambert - 07/07/2022 4:37 PM EST Patient has been identified by name and [...] Thank you. Tracy Lambert documented in this encounterOhio State Health System09-12-2022 Miscellaneous Notes* Telephone Encounter - Mague Steiner MA - 04/10/2022 10:23 AM EDT Patient has been identified by name and date of : Yes Requested Prescriptions Pending Prescriptions Disp Refills tamsulosin (FLOMAX) 0.4 mg 90 capsule 1 Sig: Take 1 capsule by mouth once daily. RX INSTRUCTIONS: Patient aware RX will be sent to pharmacy. No need to notify patient. Mague Steiner MA Norberto: 11/2021 No appointment scheduled Last refill: 04/2021 * Telephone Encounter - Tamra Kathleen - 04/10/2022 9:34 AM EDT Pharmacy verified in Epic Patient has been identified by name and [...] advise. Tamra Baez Pss documented in this encounterOhio State Health System06-13-2022 Miscellaneous Notes* Telephone Encounter - Theresa Barbour Pss - 01/09/2022 2:52 PM EDT Patient has been identified by name and date of : Yes Pending Prescriptions Disp Refills OMEPRAZOLE 20 MG CAPSULE,DELAYED RELEASE 90 capsule 3 Sig: Take 1 capsule by mouth once daily. SOPHIA: No NORBERTO-12/19/21 Labs-12/19/21 NOV-06/26/22 med filled 12/21/20 RX INSTRUCTIONS: Patient aware RX will be sent to pharmacy. No need to notify patient. Theresa Barbour Pss documented in this encounterOhio State Health System02-10-2020 Evaluation note* Diagnosis Onset Date Resolution Status Essential (primary) hypertension chronic Hyperlipidemia chronic Peripheral vascular occlusive disease chronic History of coronary artery stent placement September 082019 resolved [facility] Work Phone: [phone]) 486-653202-01-2018 Evaluation note* Diagnosis Onset Date Resolution Status BPH (benign prostatic hyperplasia) acute History of angioplasty of peripheral vessel August, acute Hypokalemia acute Hypoxia acute Pneumonia acute SOB (shortness of breath) ac agdaagux Essential (primary) hypertension chronic History of coronary artery stent placement September 082019 [facility] Work Phone: Evaluation note* Diagnosis Gastroesophageal reflux disease, unspecified whether esophagitis present [facility] [place] [facility]* Diagnosis Benign prostatic hyperplasia with nocturia [facility] [place] noteNo assessment information availableWJoint [facility] Work Phone: Evaluation note* Diagnosis S/P primary angioplasty with coronary stent Postsurgical percutaneous transluminal coronary angioplasty status PAD (peripheral artery disease) (HCC) Peripheral vascular disease, unspecified Hyperlipidemia LDL goal <100 Other and unspecified hyperlipidemia Anxiety state Anxiety state, unspecified Essential hypertension, benign Benign prostatic hyperplasia with nocturia [facility] [place] [facility]* Diagnosis S/P primary [...] insomnia Insomnia, unspecified [facility] [place] [facility]* Diagnosis Gastroesophageal reflux disease, unspecified whether esophagitis present Anxiety state Anxiety state, unspecified Chronic insomnia Insomnia, unspecified [facility] [place] [facility]* Diagnosis Back pain of lumbar region with sciatica- Primary [facility] [place] [facility]* Diagnosis Piriformis syndrome, left- Primary Somatic dysfunction of left sacroiliac joint [facility] [place] [facility]* Diagnosis Abrasion of anterior right lower leg, initial encounter- Primary documented [facility] [place] [facility]* Diagnosis Atherosclerosis of aorta (HCC) Atherosclerosis of aorta documented [facility] this encounter [facility] [place] [facility]* Diagnosis Anxiety state Anxiety state, unspecified Chronic insomnia Insomnia, unspecified [facility] [place] [facility]* Diagnosis Coronary artery disease involving [place] coronary artery of [place] heart without angina pectoris- Primary S/P primary [...] Diarrhea, unspecified type documented [facility] this encounter [facility]* Diagnosis Benign prostatic hyperplasia with nocturia documented [facility] this encounter [facility] [place] [facility]* Diagnosis Onset Date Resolution Status Hypokalemia acute Hypoxia acute Pneumonia acute SOB (shortness of breath) [facility] Work Phone: Evaluation note* Diagnosis Coronary artery disease involving [place] coronary artery of [place] heart without angina pectoris S/P primary angioplasty with coronary stent Postsurgical percutaneous transluminal coronary angioplasty status Angina pectoris (HCC) Other and unspecified angina pectoris Atherosclerosis of aorta (HCC) Atherosclerosis of aorta Essential hypertension, benign Hyperlipidemia, mixed Mixed hyperlipidemia PAD (peripheral artery disease) (HCC) Peripheral vascular disease, unspecified Parkinson's disease without dyskinesia, with fluctuating manifestations (HCC) Hyperbilirubinemia Jaundice, unspecified, not of Gastroesophageal reflux disease, unspecified whether esophagitis present Benign prostatic hyperplasia with nocturia Anxiety state Anxiety state, unspecified Hospital discharge follow-up Other follow-up examination Acute respiratory failure with hypoxia (HCC) Acute respiratory failure Pneumonia, primary atypical Pneumonia, organism unspecified documented in this encounter [facility] [place] [facility]* Diagnosis Anxiety state Anxiety state, unspecified Chronic insomnia Insomnia, unspecified documented in this encounter [facility]* Diagnosis Coronary artery disease involving [place] coronary artery of [place] heart without angina pectoris- Primary S/P primary angioplasty with coronary stent Postsurgical percutaneous transluminal coronary angioplasty status Angina pectoris (HCC) Other and unspecified angina pectoris Atherosclerosis of aorta (HCC) Atherosclerosis of aorta Essential hypertension, benign Hyperlipidemia LDL goal <100 Other and unspecified hyperlipidemia PAD (peripheral artery disease) (HCC) Peripheral vascular disease, unspecified Forgetfulness Other general symptoms Parkinson's disease without dyskinesia, with fluctuating manifestations (HCC) Hyperbilirubinemia Jaundice, unspecified, not of Gastroesophageal reflux disease, unspecified whether esophagitis present Benign prostatic hyperplasia with nocturia Anxiety state Anxiety state, unspecified Current use of proton pump inhibitor Encounter for long-term (current) use of other medications Alcohol use disorder, mild, abuse documented [facility] this encounter [facility]* Diagnosis Benign prostatic hyperplasia with nocturia S/P primary angioplasty with coronary stent Postsurgical percutaneous transluminal coronary angioplasty status documented in this encounter [facility] [place] [facility]* Diagnosis Left sided abdominal pain- Primary Abdominal pain, unspecified site Essential hypertension, benign [facility] [place] [facility]* Diagnosis S/P primary angioplasty with coronary stent Postsurgical percutaneous transluminal coronary angioplasty status PAD (peripheral artery disease) (HCC) Peripheral vascular disease, unspecified [facility] [place] [facility]* Diagnosis S/P primary angioplasty with coronary stent Postsurgical percutaneous transluminal coronary angioplasty status PAD (peripheral artery disease) (HCC) Peripheral vascular disease, unspecified Hyperlipidemia LDL goal <100 Other and unspecified hyperlipidemia Anxiety state Anxiety state, unspecified Benign prostatic hyperplasia with nocturia Essential hypertension, benign Left sided abdominal pain Abdominal pain, unspecified site documented [facility] [place] [facility]* Diagnosis Back pain of lumbar region with sciatica documented [facility] [place] [facility]* Diagnosis Essential hypertension, benign [facility] [place] [facility]* Diagnosis Chronic insomnia- Primary Insomnia, unspecified Benign prostatic hyperplasia with nocturia Screening for depression Hyperlipidemia LDL goal <100 Other and unspecified hyperlipidemia Essential hypertension, benign Parkinson's disease without dyskinesia, unspecified whether manifestations fluctuate (HCC) Coronary artery disease involving [place] coronary artery of [place] heart without angina pectoris Acute respiratory failure with hypoxia (HCC) Acute respiratory failure documented in this encounter [facility] note* Diagnosis 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 Chronic obstructive pulmonary disease with acute lower respiratory infection (HCC) Obstructive chronic bronchitis with exacerbation documented in this encounter [facility] Dis[facility] Work Phone: Reason for referral (narrative)* Diagnostic Procedure Only (Urgent) - Closed Specialty Diagnoses / Procedures Referred By Armando t Referred To Contact XR IMAGING Diagnoses Back pain of lumbar region with sciatica Procedures XR LUMBAR GENERAL 3V AP/LAT/L5-S1 RADEX SPINE LUMBOSACRAL 2/3 VIEWS Rebekah Salazar PA-C [address] [place] [address] Xr Imaging Referral ID Status Reason Start Date Expiration Date V isits Requested Visits Authorized [id number] Closed Auto-Generate d Referral 01/31/2023 03/01/2024 1 1 [facility] for referral (narrative)* Diagnostic Procedure Only (Urgent) - Closed Specialty Diagnoses / Procedures Referred By Contac t Referred To Contact XR IMAGING Diagnoses Back pain of lumbar region with sciatica Procedures XR LUMBAR GENERAL 3V AP/LAT/L5-S1 RADEX SPINE LUMBOSACRAL 2/3 VIEWS Rebekah Salazar PA-C [address] [place] [address] [place] [address] Referral ID Status Reason Start Date Expiration Date V isits Requested Visits Authorized [id number] Closed Auto-Generate d Referral 01/31/2023 03/01/2024 1 1 [facility] for visit Narrative* Diagnostic Procedure Only (Urgent) - Closed Specialty Diagnoses / Procedures Referred By Contac t Referred To Contact XR IMAGING Diagnoses Back pain of lumbar region with sciatica Procedures XR LUMBAR GENERAL 3V AP/LAT/L5-S1 RADEX SPINE LUMBOSACRAL 2/3 VIEWS Rebekah Salazar PA-C [address] [place] [address] [place] [address] Referral ID Status Reason Start Date Expiration Date V isits Requested Visits Authorized [id number] Closed Auto-Generate d Referral 01/31/2023 03/01/2024 1 1 [facility] Chief Complaint and Reason for Visit Chief Complaint 9 M FU (NEEDS SUN)(W E RS FROM 01/26) CAD Coronary artery disease Reason for Visit Essential (primary) hypertension Hyperlipidemia Peripheral vascular occlusive disease History of coronary artery stent placement Chief Complaint CAD Coronary artery disease NOSE BLEED Chief Complaint HYPOXIA Reason for Visit Hypokalemia Hypoxia Pneumonia SOB (shortness of breath) Chief Complaint HYPOXIA HYPOXIA HYPOXIA HYPOXIA Reason for Visit BPH (benign prostati c hyperplasia) History of angioplasty of peripheral vessel Hypokalemia Hypoxia Pneumonia SOB (shortness of breath) Essential (primary) hypertension History of coronary artery stent placement Chief Complaint Admit Date HYPOXIA September 07, 2024 1 2:42pm HYPOXIA September 07, 2024 1 :17pm HYPOXIA September 08, 2024 9:16am HYPOXIA September 09, 2024 9:54am HYPOXIA September 10, 2024 7:19am HYPOXIA September 11, 2024 8:00am HYPOXIA September 12, 2024 8:11am HYPOXIA September 13, 2024 8:47am HYPOXIA September 14, 2024 9:10am HYPOXIA September 15, 2024 9:52am Hospital FU October 16, 2024 12: 57pm Reason for Visit Admit Date Hypoxia September 07, 2024 1 2:42pm Pulmonary hypertension October 16, 2024 12:57pm COPD (chronic obstructive pulmonary dise ase) October 16, 2024 12:57pm Family History Relationship Condition Age at Onset Recorded Date/T paolmo father Cerebrovascular accident (CVA) Unknown mother Cerebrovascular accident (CVA) Unknown Hypertension Unknown Advance Directives Advance Directive Response Recorded Date/ Time Advance Directives Yes August 9:34am Living Will No September 18 11:19am Power of Claims Adjuster Crop No September 18, 2021 11:19am Advance Directive Response Recorded Date/ Time Advance Directives Yes August 8:34am Living Will No June 21 022 9:59pm Power of Claims Adjuster Crop No June 21, 2022 9:59pm Advance Directive Response Recorded Date/ Time Advance Directives Yes August 8:34am Living Will Yes August 01 1:05pm Power of Claims Adjuster Crop Yes August 01 1:05pm Name of Medical Power of Claims Adjuster Crop nick payne, daughter and quincy lyles, son August 01, 2023 1:05pm Advance Directive Response Recorded Date/ Time Name of Medical Power of Claims Adjuster Crop nick payne, daughter and quincy lyles, son August 01, 2023 5:46pm Advance Directives Yes August 8:34am Living Will Yes August 01 5:46pm Power of Claims Adjuster Crop Yes August 01 5:46pm Advance Directive Response Recorded Date/ Time Living Will Yes September 07 3:15pm Do you have a Healthcare Power of Claims Adjuster Crop? Yes September 07, 2024 3:15pm Name of Medical Power of Claims Adjuster Crop quincy September 07, 2024 3:15pm Advance Directives Yes August 9:34am Reason for Referral Specialty Diagnoses / Procedures Referred By Contac t Referred To Contact CT IMAGING Diagnoses Atherosclerosis of aorta (HCC) Procedures CTA ABD/PEL W IVCON CT ANGIO ABD&PLVIS CNTRST MTRL W/WO CNTRST IMGES Radha Durbin PA-C [address] [place] [address] [place] [address] Referral ID Status Reason Start Date Expiration Date V isits Requested Visits Authorized [id number] Closed Auto-Generate d Referral 04/30/2023 07/29/2023 1 1 Specialty Diagnoses / Procedures Referred By Contac t Referred To Contact Neurology Diagnoses Parkinson's disease without dyskinesia, with fluctuating manifestations (HCC) Procedures CONSULT TO NEUROLOGY OFFICE/OUTPATIENT [facility] 60 MINUTES Radha Durbin PA-C [address] [place] [address] Referral ID Status Reason Start Date Expiration Date Visits Requested Visits Authorized [id number] Authorized PCP Requested Referral 12/25/2023 12/24/2024 1 1 Summary Purpose Additional Source Comments Source Comments (unrecognize d section and content) In the event this informatio n is protected by the Federal Confidentiality of Alcohol and Drug Abuse Patient Records regulations: The Federal rules restrict any use of the information to criminally investigate or prosecute any alcohol or drug abuse patient.[facility] SystemIn the event this information is protected by the Federal Confidentiality of Alcohol and Drug Abuse Patient Records regulations: The Federal rules restrict any use of the information to criminally investigate or prosecute any alcohol or drug abuse patient.[facility] SystemIn the event this information is protected by the Federal Confidentiality of Alcohol and Drug Abuse Patient Records regulations: The Federal rules restrict any use of the information to criminally investigate or prosecute any alcohol or drug abuse patient.[facility] SystemIn the event this information is protected by the Federal Confidentiality of Alcohol and Drug Abuse Patient Records regulations: The Federal rules restrict any use of the information to criminally investigate or prosecute any alcohol or drug abuse patient.[facility] SystemIn the event this information is protected by the Federal Confidentiality of Alcohol and Drug Abuse Patient Records regulations: The Federal rules restrict any use of the information to criminally investigate or prosecute any alcohol or drug abuse patient.[facility] SystemIn the event this information is protected by the Federal Confidentiality of Alcohol and Drug Abuse Patient Records regulations: The Federal rules restrict any use of the information to criminally investigate or prosecute any alcohol or drug abuse patient.[facility] SystemIn the event this information is protected by the Federal Confidentiality of Alcohol and Drug Abuse Patient Records regulations: The Federal rules restrict any use of the information to criminally investigate or prosecute any alcohol or drug abuse patient.[facility] SystemIn the event this information is protected by the Federal Confidentiality of Alcohol and Drug Abuse Patient Records regulations: The Federal rules restrict any use of the information to criminally investigate or prosecute any alcohol or drug abuse patient.[facility] SystemIn the event this information is protected by the Federal Confidentiality of Alcohol and Drug Abuse Patient Records regulations: The Federal rules restrict any use of the information to criminally investigate or prosecute any alcohol or drug abuse patient.[facility] SystemIn the event this information is protected by the Federal Confidentiality of Alcohol and Drug Abuse Patient Records regulations: The Federal rules restrict any use of the information to criminally investigate or prosecute any alcohol or drug abuse patient.[facility] SystemIn the event this information is protected by the Federal Confidentiality of Alcohol and Drug Abuse Patient Records regulations: The Federal rules restrict any use of the information to criminally investigate or prosecute any alcohol or drug abuse patient.[facility] SystemIn the event this information is protected by the Federal Confidentiality of Alcohol and Drug Abuse Patient Records regulations: The Federal rules restrict any use of the information to criminally investigate or prosecute any alcohol or drug abuse patient.[facility] SystemIn the event this information is protected by the Federal Confidentiality of Alcohol and Drug Abuse Patient Records regulations: The Federal rules restrict any use of the information to criminally investigate or prosecute any alcohol or drug abuse patient.[facility] SystemIn the event this information is protected by the Federal Confidentiality of Alcohol and Drug Abuse Patient Records regulations: The Federal rules restrict any use of the information to criminally investigate or prosecute any alcohol or drug abuse patient.[facility] SystemIn the event this information is protected by the Federal Confidentiality of Alcohol and Drug Abuse Patient Records regulations: The Federal rules restrict any use of the information to criminally investigate or prosecute any alcohol or drug abuse patient.[facility] SystemIn the event this information is protected by the Federal Confidentiality of Alcohol and Drug Abuse Patient Records regulations: The Federal rules restrict any use of the information to criminally investigate or prosecute any alcohol or drug abuse patient.[facility] SystemIn the event this information is protected by the Federal Confidentiality of Alcohol and Drug Abuse Patient Records regulations: The Federal rules restrict any use of the information to criminally investigate or prosecute any alcohol or drug abuse patient.[facility] SystemIn the event this information is protected by the Federal Confidentiality of Alcohol and Drug Abuse Patient Records regulations: The Federal rules restrict any use of the information to criminally investigate or prosecute any alcohol or drug abuse patient.[facility] SystemIn the event this information is protected by the Federal Confidentiality of Alcohol and Drug Abuse Patient Records regulations: The Federal rules restrict any use of the information to criminally investigate or prosecute any alcohol or drug abuse patient.[facility] SystemIn the event this information is protected by the Federal Confidentiality of Alcohol and Drug Abuse Patient Records regulations: The Federal rules restrict any use of the information to criminally investigate or prosecute any alcohol or drug abuse patient.[facility] SystemIn the event this information is protected by the Federal Confidentiality of Alcohol and Drug Abuse Patient Records regulations: The Federal rules restrict any use of the information to criminally investigate or prosecute any alcohol or drug abuse patient.[facility] SystemIn the event this information is protected by the Federal Confidentiality of Alcohol and Drug Abuse Patient Records regulations: The Federal rules restrict any use of the information to criminally investigate or prosecute any alcohol or drug abuse patient.[facility] SystemIn the event this information is protected by the Federal Confidentiality of Alcohol and Drug Abuse Patient Records regulations: The Federal rules restrict any use of the information to criminally investigate or prosecute any alcohol or drug abuse patient.[facility] SystemIn the event this information is protected by the Federal Confidentiality of Alcohol and Drug Abuse Patient Records regulations: The Federal rules restrict any use of the information to criminally investigate or prosecute any alcohol or drug abuse patient.[facility] SystemIn the event this information is protected by the Federal Confidentiality of Alcohol and Drug Abuse Patient Records regulations: The Federal rules restrict any use of the information to criminally investigate or prosecute any alcohol or drug abuse patient.[facility] SystemIn the event this information is protected by the Federal Confidentiality of Alcohol and Drug Abuse Patient Records regulations: The Federal rules restrict any use of the information to criminally investigate or prosecute any alcohol or drug abuse patient.[facility] SystemIn the event this information is protected by the Federal Confidentiality of Alcohol and Drug Abuse Patient Records regulations: The Federal rules restrict any use of the information to criminally investigate or prosecute any alcohol or drug abuse patient.[facility] SystemIn the event this information is protected by the Federal Confidentiality of Alcohol and Drug Abuse Patient Records regulations: The Federal rules restrict any use of the information to criminally investigate or prosecute any alcohol or drug abuse patient.[facility] SystemIn the event this information is protected by the Federal Confidentiality of Alcohol and Drug Abuse Patient Records regulations: The Federal rules restrict any use of the information to criminally investigate or prosecute any alcohol or drug abuse patient.[facility] SystemIn the event this information is protected by the Federal Confidentiality of Alcohol and Drug Abuse Patient Records regulations: The Federal rules restrict any use of the information to criminally investigate or prosecute any alcohol or drug abuse patient.[facility] SystemIn the event this information is protected by the Federal Confidentiality of Alcohol and Drug Abuse Patient Records regulations: The Federal rules restrict any use of the information to criminally investigate or prosecute any alcohol or drug abuse patient.[facility] SystemIn the event this information is protected by the Federal Confidentiality of Alcohol and Drug Abuse Patient Records regulations: The Federal rules restrict any use of the information to criminally investigate or prosecute any alcohol or drug abuse patient.[facility] SystemIn the event this information is protected by the Federal Confidentiality of Alcohol and Drug Abuse Patient Records regulations: The Federal rules restrict any use of the information to criminally investigate or prosecute any alcohol or drug abuse patient.[facility] SystemIn the event this information is protected by the Federal Confidentiality of Alcohol and Drug Abuse Patient Records regulations: The Federal rules restrict any use of the information to criminally investigate or prosecute any alcohol or drug abuse patient.[facility] SystemIn the event this information is protected by the Federal Confidentiality of Alcohol and Drug Abuse Patient Records regulations: The Federal rules restrict any use of the information to criminally investigate or prosecute any alcohol or drug abuse patient.[facility] SystemIn the event this information is protected by the Federal Confidentiality of Alcohol and Drug Abuse Patient Records regulations: The Federal rules restrict any use of the information to criminally investigate or prosecute any alcohol or drug abuse patient.[facility] SystemIn the event this information is protected by the Federal Confidentiality of Alcohol and Drug Abuse Patient Records regulations: The Federal rules restrict any use of the information to criminally investigate or prosecute any alcohol or drug abuse patient.[facility] Reason for Visit (unrecogniz ed section and content) Reason Onset Date Comments Refill Request 01/09/2022 Reason Onset Date Comments Refill Request 04/10/2022 [...] to touch x 1 week hit on floor polisher Reason Comments Radiology CT Specialty Diagnoses / Procedures Referred By Armando t Referred To Contact CT IMAGING Diagnoses Atherosclerosis of aorta (HCC) Procedures CTA ABD/PEL W IVCON CT ANGIO ABD&PLVIS CNTRST MTRL W/WO CNTRST Radha Bob PA-C [address] [place] [address] [place] [address] Referral ID Status Reason Start Date Expiration Date V isits Requested Visits Authorized [id number] Closed Auto-Generate d Referral 04/30/2023 07/29/2023 1 1 Reason Onset Date Comments Refill Request 06/18/2023 Reason Comments 6 Month Exam Reason Onset Date Comments Refill Request 07/10/2023 Reason Comments Follow Up 3 month Reason Onset Date Comments Refill Request 12/13/2023 Reason Comments Follow Up 3 month Reason Comments Refill Request Reason Comments Abdominal Pain Pain, gas, nausea fo r awhile Sleep Problem Reason Onset Date Comments Refill Request 03/13/2024 Reason Comments Follow Up Abdominal Pain Follow up Reason Comments Home Health Orders Reason Comments Hospital F/U Reason Comments Home Health PT Plan of Care Reason Comments [facility] Plan of Care Reason Comments Oxygen FYI-No Action Needed Reason Comments Orders patient POC Reason Comments Patient Update Reason Comments [id number] Initial Consult Care Teams (unrecognized sec tion and content) Interior Design Principal Relationship Specialty Start Date End Date Radha Durbin PA-C [address] [place] [address] PCP - General Family Practice 09/20/21 Interior Design Principal Relationship Specialty Start Date End Date Radha Durbin PA-C [address] [place] [address] PCP - General Family Medicine 09/20/21 Interior Design Principal Relationship Specialty Start Date End Date Radha Durbin PA-C [address] [place] [address] PCP - General Family Medicine 09/20/21 Interior Design Principal Relationship Specialty Start Date End Date Radha Durbin PA-C [address] [place] [address] PCP - General Family Medicine 09/20/21 Interior Design Principal Relationship Specialty Start Date End Date Radha Durbin PA-C [address] [place] [address] PCP - General Family Medicine 09/20/21 Interior Design Principal Relationship Specialty Start Date End Date Radha Durbin PA-C [address] [place] [address] PCP - General Family Medicine 09/20/21 Interior Design Principal Relationship Specialty Start Date End Date Radha Durbin PA-C [address] [place] [address] PCP - General Family Medicine 09/20/21 Interior Design Principal Relationship Specialty Start Date End Date Radha Durbin PA-C [address] [place] [address] PCP - General Family Medicine 09/20/21 Interior Design Principal Relationship Specialty Start Date End Date Radha Durbin PA-C [address] [place] [address] PCP - General Family Medicine 09/20/21 Interior Design Principal Relationship Specialty Start Date End Date Radha Durbin PA-C [address] [place] [address] PCP - General Family Medicine 09/20/21 Interior Design Principal Relationship Specialty Start Date End Date Radha Durbin PA-C [address] [place] [address] PCP - General Family Medicine 09/20/21 Interior Design Principal Relationship Specialty Start Date End Date Radha Durbin PA-C [address] [place] [address] PCP - General Family Medicine 09/20/21 Interior Design Principal Relationship Specialty Start Date End Date Radha Durbin PA-C [address] [place] [address] PCP - General Family Medicine 09/20/21 Interior Design Principal Relationship Specialty Start Date End Date Radha Durbin PA-C [address] [place] [address] PCP - General Family Medicine 09/20/21 Interior Design Principal Relationship Specialty Start Date End Date Radha Durbin PA-C [address] [place] [address] PCP - General Family Medicine 09/20/21 Interior Design Principal Relationship Specialty Start Date End Date Radha Durbin PA-C [address] [place] [address] PCP - General Family Medicine 09/20/21 Team Status: Active Member Role Status Dates Dr. Brian Mackenzie III, MD Family Provider Active CHRISTINE Bahena Primary Care Provider Active Team Status: Active Member Role Status Dates CHRISTINE Bahena Primary Care Provider Active Lewis Sutton MD Emergency Provider Active Dr. Jasmine Tan MD Admit Provider, Attending Provid er Active Team Status: Active Member Role Status Dates CHRISTINE Bahena Primary Care Provider Active Dr. Becca Nam MD Attending Provider Active Team Status: Active Member Role Status Dates CHRISTINE Bahena Primary Care Provider Active Lewis Sutton MD Emergency Provider Active Dr. Jasmine Tan MD Admit Provider, Other Provider A ctive Dr. Jerrell Faith MD Attending Provider, Other Provid er Active Team Status: Inactive Member Role Status Dates CHRISTINE Bahena Primary Care Provider Active Lewis Sutton MD Emergency Provider Active Dr. Jasmine Tan MD Admit Provider, Other Provider A ctive Dr. Jerrell Faith MD Attending Provider Active Interior Design Principal Relationship Specialty Start Date End Date Radha Durbin PA-C [address] [place] [address] PCP - General Family Medicine 09/20/21 Interior Design Principal Relationship Specialty Start Date End Date Radha Durbin PA-C [address] [place], [place] [address] PCP - General Family Medicine 09/20/21 Interior Design Principal Relationship Specialty Start Date End Date Radha Durbin PA-C [address] [place], [place] [address] PCP - General Family Medicine 09/20/21 Interior Design Principal Relationship Specialty Start Date End Date Radha Durbin PA-C [address] [place], [place] [address] PCP - General Family Medicine 09/20/21 Interior Design Principal Relationship Specialty Start Date End Date Radha Durbin PA-C [address] [place] [address] PCP - General Family Medicine 09/20/21 Interior Design Principal Relationship Specialty Start Date End Date Radha Durbin PA-C [address] [place] [address] PCP - General Family Medicine 09/20/21 Interior Design Principal Relationship Specialty Start Date End Date Radha Durbin PA-C [address] [place] [address] PCP - General Family Medicine 09/20/21 Interior Design Principal Relationship Specialty Start Date End Date Radha Durbin PA-C [address] [place] [address] PCP - General Family Medicine 09/20/21 Interior Design Principal Relationship Specialty Start Date End Date Brigitte Segal, SPRINKLING TRUCK DRIVER.GANG LEADER [address] [place] [address] PCP - General Family Medicine 09/08/24 Yuliana Patton, SPRINKLING TRUCK DRIVER.GANG LEADER [address] [facility] [place] [address] Wad Compressor Operator Adjuster Family Medicine 07/04/24 Brigitte Segal, SPRINKLING TRUCK DRIVER.GANG LEADER [address] [place] [address] Wad Compressor Operator Adjuster Family Medicine 07/04/24 Interior Design Principal Relationship Specialty Start Date End Date Brigitte Segal, SPRINKLING TRUCK DRIVER.GANG LEADER [address] [place] [address] PCP - General Family Medicine 09/08/24 Yuliana Patton, SPRINKLING TRUCK DRIVER.GANG LEADER [address] [place] [address] Wad Compressor Operator Adjuster Family Medicine 07/04/24 Brigitte Segal, SPRINKLING TRUCK DRIVER.GANG LEADER [address] [place] [address] Wad Compressor Operator [facility] Interior Design Principal Relationship Specialty Start Date End Date Brigitte Segal, SPRINKLING TRUCK DRIVER.GANG LEADER [address] [place] [address] PCP - General Family Medicine 09/08/24 Yuliana Patton, SPRINKLING TRUCK DRIVER.GANG LEADER [address] [place] [address] Wad Compressor Operator [facility] 07/04/24 Brigitte Segal, SPRINKLING TRUCK DRIVER.GANG LEADER [address] [place] [address] [facility] 07/04/24 Interior Design Principal Relationship Specialty Start Date End Date Brigitte Segal, SPRINKLING TRUCK DRIVER.GANG LEADER [address] [place] [address] PCP - General Family Medicine 09/08/24 Yuliana Patton, SPRINKLING TRUCK DRIVER.GANG LEADER [address] [place] [address] [facility] Medicine 07/04/24 Brigitte Segal, SPRINKLING TRUCK DRIVER.GANG LEADER [address] [place] [address] Wad Compressor Operator Adjuster Family Medicine 07/04/24 Interior Design Principal Relationship Specialty Start Date End Date Brigitte Segal, SPRINKLING TRUCK DRIVER.GANG LEADER [address] [place] [address] PCP - General Family Medicine 09/08/24 Yuliana Patton, SPRINKLING TRUCK DRIVER.GANG LEADER [address] [facility] [place] [address] Wad Compressor Operator Adjuster Family Medicine 07/04/24 Brigitte Segal, SPRINKLING TRUCK DRIVER.GANG LEADER [address] [place] [address] [facility] 07/04/24 Interior Design Principal Relationship Specialty Start Date End Date Brigitte Segal, SPRINKLING TRUCK DRIVER.GANG LEADER [address] [place] [address] PCP - General Family Medicine 09/08/24 Yuliana Patton, SPRINKLING TRUCK DRIVER.GANG LEADER [address] [facility] [place] [address] Wad Compressor Operator [facility] 07/04/24 Brigitte Segal, SPRINKLING TRUCK DRIVER.GANG LEADER [address] [place] [address] Wad Compressor Operator [facility] 07/04/24 Interior Design Principal Relationship Specialty Start Date End Date Brigitte Segal, SPRINKLING TRUCK DRIVER.GANG LEADER [address] [place] [address] PCP - General Family Medicine 09/08/24 Interior Design Principal Relationship Specialty Start Date End Date Brigitte Segal, SPRINKLING TRUCK DRIVER.GANG LEADER [address] [place] [address] PCP - General Family Medicine 09/08/24 Yuliana Patton, SPRINKLING TRUCK DRIVER.GANG LEADER [address] [facility] [place], [place] [address] Wad Compressor Operator [facility] 07/04/24 10/20/24 Brigitte Segal, SPRINKLING TRUCK DRIVER.GANG LEADER [address] [facility], [place] [address] [facility] 07/04/24 10/20/24 Interior Design Principal Relationship Specialty Start Date End Date Brigitte Segal, SPRINKLING TRUCK DRIVER.GANG LEADER [address] [facility], [place] [address] PCP - General Family Medicine 09/08/24 Team Status: Active Member Role Status Dates MARIANA Humphreys Primary Care Provider Active Team Status: Inactive Member Role Status Dates Dr. Neo Tejeda DO Emergency Provider Active Start: September 07, 2024 End: September 15, 2024 MARIANA Humphreys Primary Care Provider Active Start: September 07, 2024 End: September 15, 2024 Dr. Jerrell Faith MD Admit Provider Active Star t: September 07, 2024 End: September 15, 2024 Dr. Jerrell Faith MD Other Provider Active Star t: September 07, 2024 End: September 15, 2024 Dr. John Soliz MD Attending Provider Active Start: September 07, 2024 End: September 15, 2024 Dr. Lester Perdomo DO Other Provider Active Star t: September 07, 2024 End: September 15, 2024 Team Status: Active Member Role Status Dates Dr. Neo Tejeda DO Emergency Provider Active Start: September 07, 2024 MARIANA Humphreys Primary Care Provider Active Start: September 07, 2024 Dr. Jerrell Faith MD Admit Provider Active Star t: September 07, 2024 Dr. Jerrell Faith MD Attending Provider Active Start: September 07, 2024 Dr. Jerrell Faith MD Other Provider Active Star t: September 07, 2024 Team Status: Active Member Role Status Dates Dr. Neo Tejeda DO Emergency Provider Active Start: September 08, 2024 Brigitte Suppan , COMPENSATOR Primary Care Provider Active Start: September 08, 2024 Dr. Jerrell Faith MD Admit Provider Active Star t: September 08, 2024 Dr. Jerrell Faith MD Other Provider Active Star t: September 08, 2024 Dr. Lester Perdomo DO Attending Provider Active Start: September 08, 2024 Dr. Lester Perdomo DO Other Provider Active Star t: September 08, 2024 Team Status: Active Member Role Status Dates Brigitte Suppan , COMPENSATOR Primary Care Provider Active Start: September 08, 2024 Dr. Dejuan Brooks MD Attending Provider Active S tart: September 08, 2024 Team Status: Active Member Role Status Dates Dr. Neo Tejeda DO Emergency Provider Active Start: September 09, 2024 Brigitte Suppan , COMPENSATOR Primary Care Provider Active Start: September 09, 2024 Dr. Jerrell Faith MD Admit Provider Active Star t: September 09, 2024 Dr. Jerrell Faith MD Other Provider Active Star t: September 09, 2024 Dr. Lester Perdomo DO Attending Provider Active Start: September 09, 2024 Dr. Lester Perdomo DO Other Provider Active Star t: September 09, 2024 Team Status: Active Member Role Status Dates Dr. Neo Tejeda DO Emergency Provider Active Start: September 10, 2024 Brigitte Suppan , COMPENSATOR Primary Care Provider Active Start: September 10, 2024 Dr. Jerrell Faith MD Admit Provider Active Star t: September 10, 2024 Dr. Jerrell Faith MD Other Provider Active Star t: September 10, 2024 Dr. Lester Perdomo DO Attending Provider Active Start: September 10, 2024 Dr. Lester Perdomo DO Other Provider Active Star t: September 10, 2024 Team Status: Active Member Role Status Dates Dr. Neo Tejeda DO Emergency Provider Active Start: September 11, 2024 Brigitte Suppan , COMPENSATOR Primary Care Provider Active Start: September 11, 2024 Dr. Jerrell Faith MD Admit Provider Active Star t: September 11, 2024 Dr. Jerrell Faith MD Other Provider Active Star t: September 11, 2024 Dr. Lester Perdomo DO Attending Provider Active Start: September 11, 2024 Dr. Lester Perdomo DO Other Provider Active Star t: September 11, 2024 Team Status: Active Member Role Status Dates Dr. Neo Tejeda DO Emergency Provider Active Start: September 12, 2024 Brigittemillicent Segal , COMPENSATOR Primary Care Provider Active Start: September 12, 2024 Dr. Jerrell Faith MD Admit Provider Active Star t: September 12, 2024 Dr. Jerrell Faith MD Other Provider Active Star t: September 12, 2024 Dr. Lester Perdomo DO Attending Provider Active Start: September 12, 2024 Dr. Lester Perdomo DO Other Provider Active Star t: September 12, 2024 Team Status: Active Member Role Status Dates Dr. Neo Tejeda DO Emergency Provider Active Start: September 13, 2024 Brigitte Segal , COMPENSATOR Primary Care Provider Active Start: September 13, 2024 Dr. Jerrell Faith MD Admit Provider Active Star t: September 13, 2024 Dr. Jerrell Faith MD Other Provider Active Star t: September 13, 2024 Dr. Lester Perdomo DO Attending Provider Active Start: September 13, 2024 Dr. Lester Perdomo DO Other Provider Active Star t: September 13, 2024 Team Status: Active Member Role Status Dates Dr. Neo Tejeda DO Emergency Provider Active Start: September 14, 2024 Brigitte Segal , COMPENSATOR Primary Care Provider Active Start: September 14, 2024 Dr. Jerrell Faith MD Admit Provider Active Star t: September 14, 2024 Dr. Jerrell Faith MD Other Provider Active Star t: September 14, 2024 Dr. Lester Perdomo DO Attending Provider Active Start: September 14, 2024 Dr. Lester Perdomo DO Other Provider Active Star t: September 14, 2024 Team Status: Active Member Role Status Dates Dr. Neo Tejeda DO Emergency Provider Active Start: September 15, 2024 Brigitte Segal , COMPENSATOR Primary Care Provider Active Start: September 15, 2024 Dr. Jerrell Faith MD Admit Provider Active Star t: September 15, 2024 Dr. Jerrell Faith MD Other Provider Active Star t: September 15, 2024 Dr. John Soliz MD Attending Provider Active Start: September 15, 2024 Dr. John Soliz MD Other Provider Active Sta rt: September 15, 2024 Dr. Lester Perdomo DO Other Provider Active Star t: September 15, 2024 Team Status: Inactive Member Role Status Dates MARIANA Humphreys Primary Care Provider Active Start: October 16, 2024 End: October 16, 2024 MARIANA Humphreys Referring Provider Active Start: October 16, 2024 End: October 16, 2024 Kalyn Taylor HUMAN INTELLIGENCE, HUMAN INTELLIGENCE-C Attending Provider Active Start: October 16, 2024 End: October 16, 2024 Goals (unrecognized section and content) Goals may be documented in a n alternate sectionGoals may be documented in an alternate sectionGoals may be documented in an alternate section (unrecognized sect ion and content) No Status Records FoundNo Status Records FoundNo Status Records Found INFORMATION SOURCE (unrecogn ized section and content) DATE CREATED AUTHOR 10/18/2024 [facility] DATE CREATED AUTHOR AUTHOR'S ORGANIZ ATION 11/02/2024 [facility] DATE CREATED AUTHOR AUTHOR'S ORGANIZ ATION 2024 [facility] FOR RECORDS PERTAINING TO PATIENTS WHO ARE [...] BE BASED ON THE PRIMARY CLINICAL RECORDS. [email or web address] provides no warranty or guarantee of the accuracy or completeness of information in this document.
--- OUTSIDE RECORDS SUMMARY | 2025-02-08 18:42 | XMS RPT_ITS | CCD ---
Author Organization [facility] Care Team Providers Care Screen Printing Press Operator Name Role Phone Quan Mackenzie MD Unavailable Mela Patel Unavailable Unavailable Anjelica Walden Unavailable Unavailable Radha Durbin PA-C Primary Care Provider [phone] Dr. Brian Mackenzie III Referring Provider Dr. Dejuan Brooks Attending Provider CHRISTINE Blount Primary Care Provider [phone] Dr. Dejuan Brooks Referring Provider Dr. Dejuan [...] Radha Durbin PA-C Primary Care Provider Haagen FINISHER BRUSH.QUALITY CONTROL LAB TECHNICIAN, Yuliana Unavailable Suppan FINISHER BRUSH.QUALITY CONTROL LAB TECHNICIAN, Brigitte A Unavailable [phone] Suppan FINISHER BRUSH.QUALITY CONTROL LAB TECHNICIAN, Brigitte A Primary Care Provi emilia Radha [...] John Attending Unavailable Martínez, John Consulting Unavailable eJrrell Faith Attending Unavailable Suppan, Brigitte Primary Care Unavailable Dejuan Brooks Attending Unavailable Suppan, Brigitte Primary Care Unavailable Suppan, Brigitte Referring Unavailable Claudia GUIDE DELEGATE, Kalyn Attending Unavailable Radha Blount Referring Unavailable Radha Blount Primary Care Unavailable Mary Hill Attending Unavail able Suppan, Brigitte Primary Care Unavailable Taylor GUIDE DELEGATE, Kalyn Referring Unavailable Taylor GUIDE DELEGATE, Kalyn Attending Unavailable Haagen FINISHER BRUSH.QUALITY CONTROL LAB TECHNICIAN, Yuliana Unavailable Suppan FINISHER BRUSH.QUALITY CONTROL LAB TECHNICIAN, Brigitte A Unavailable SUPPAN, BRIGITTE A Attending [...] Dr. Neo Tejeda DO Emergency Provider Suppan VARNISHING UNIT OPERATOR, Brigitte Primary Care Provider Dr. Jerrell Faith MD Admit Provider Unavailable Dr. Jerrell Faith MD Other Provider Unavailable Martínez MANUEL, Dr. Lopez Attending Provider Leanne PEDERSON, Dr. Batista Other Provider Marcell MANUEL, Dr. Allan Attending Provider Unavaila ble Dr. Lester Perdomo DO Attending Provider Todd MANUEL, Dr. Zaidi Attending Provider [phone] Martínez MANUEL, Dr. Lopez Other Provider [phone] Suppan VARNISHING UNIT OPERATOR, Brigitte Referring Provider Claudia GUIDE DELEGATE-CKalyn Attending Provider Allergies Allergy Classification Reported Allergen(s) Allergy Type Date of Onset Reaction(s) Facility (20 sources) lisinopril; Translations: [LISINOPRIL] Drug Allergy 0 Cough [facility] Work Phone: Comment on above: cough (6 sources) sulfADIAZINE Drug Allergy 7 [facility] Work Phone: (20 sources) Sulfonamides (Antibiotic); Translations: [SULFA (SULFONAMIDE ANTIBIOTICS)] Drug Allergy 6 [facility] (4 sources) Sulfonamides (Antibiotic) Allergy to substance 2 Rash [facility] (1 source) Lisinopril Drug Allergy 5 [facility] (1 source) Sulfonamides (Antibiotic) Drug allergy (disorder) 5 [facility] Medications Current Medications Medication Drug [...] Start: 09-15-2024 take 2 tablets by [facility] once daily Amlodipine 5 mg tablet Active [...] tablets by mouth once daily. lactobacillus acidophilus [id number] unt oral capsule (20 sources) Start: 08-04-2023 [...] for pain and inflammation with food NAPROXEN [id number] Anjelica Walden niacin 500 mg extended release [...] 12:00am Start: 05-08-2017 [facility] tablet [facility] NIACIN 500 MG TABS One tablet by mouth twice daily NIACIN [id number] Anjelicashaheed Walden Start: 03-17-2014 End: 09-09-2019 take [...] on above: Take 1 capsule by [facility] once daily. Take 2 capsules by m [...] twice daily SAW PALMETTO (SERENOA REPENS) CAPS [id number] Anjelica Walden traZODone hydrochloride 50 mg oral [...] (1 source) Drug therapy finding; Translations: [Other insurance claim approver (current) drug therapy] 12-24-2023 Episodic Other bone [...] 7 x 30 mm Protege stenting 03/18/14; IMPROVEMENT ADVISOR 5 x 2 Powerflex and 6 x [...] 05-08-2017 Episodic Other aftercare (1 source) Other insurance claim approver (current) drug therapy; Translations: [Current use of [...] 7 x 30 mm Protege stenting 03/18/14; IMPROVEMENT ADVISOR 5 x 2 Powerflex and 6 x [...] Test Name Value Interpretation Reference Range Facility [facility] 10-31-2024 [facility] Telephone ([facility]) CLARK LYLES ([id number]) 1935 M Date Time Provider Department 10/31/24 [facility] During your visit today, we recorded the following information about you: Jaqueline Andre RN 10/31/2024 3:35 PM Signed Palliative Medicine Referral Assessment Referral Accepted: No, Reason for Denial: Chart reviewed, pal med order meant for [facility] in [place]. Jaqueline Andre RN October 31, 2024 Allergies As of Date: 10/31/2024 Noted Allergy Reaction LISINOPRIL 12/28/2009 3 - Cough SULFA (SULFONAMIDE ANTIBIOTICS) 03/09/2006 4 - Hives Date Reviewed: 09/19/2024 Reviewed by: Shirley Rivera MA - Fully Assessed Reason for Visit: [id number] [Other] Initial Consult [665] Prescriptions as of [...] chronic blood los*01/27/2020 Coronary artery disease involving onondaga rabago*12/22/2020 S/P primary angioplasty with coronary stent [Z9*12/22/2020 Fall from standing [W19.XXXA] 09/20/2021 Encounter for support and coordination of trans*08/11/2023 Acute respiratory failure with hypoxia (HCC) [J*09/25/2023 Encounter Status:Closed by JAQUELINE ANDRE on 10/31/24 [facility] 10-27-2024 [facility] CLARK [facility] ([id number]) 1935 M Date Time Provider Department 10/27/24 [facility] During your visit today, we recorded the following information about you: Amita Kim LPN 10/27/2024 3:57 PM Skyler Madrigal with [facility] calls to report family is requesting order for palliative care. Fax order to [facility] in [place]. Rohan also reports he saw pt today and is extending nurse to once a week x 2 weeks. Pt will then be discharged from Nursing. Rohan reports that Pulmonary gave new dx for pt of COPD and pulmonary htn. HIWOT Mariee Jacqueline A, APRN.QUALITY CONTROL LAB TECHNICIAN 10/27/2024 4:52 PM Signed Please ask patient [...] Signed Spoke to Paulino (not Rohan) with [facility]. Paulino reports that he did get a [...] infection (HCC) [J44.0] Order(s):CONSULT TO PALLIATIVE CARE [[id number]] Order #: [id number]: 1 FUTURE Prescriptions as of 10/28/2024 - [...] Meds Comments as of 04/18/2021: Taking Saw [place]. Problem List As Of Date 10/27/2024 Noted [...] chronic blood los*01/27/2020 Coronary artery disease involving onondaga rabago*12/22/2020 S/P primary angioplasty with coronary stent [Z9*12/22/2020 Fall from standing [W19.XXXA] 09/20/2021 Encounter for support an (more content not included)... Normal [facility] Pulmonary Visit Reporton Pulmonary Visit Report [facility] of [address] [place] [address] OFFICE VISIT Date of Service: 10/16/24 MR#: [id number] Acct: [id number] Name: CLARK LYLES Rep #: [id number] : 1935 Provider: MALIKA Taylor Age/Sex: 88/M Location: [facility] Status: Signed Assessment and Plan Assessment and [...] for hospital follow-up after recent hospitalization at [facility] from September 07 through September 15, [...] H Pu (more content not included)... Normal [facility] 10-15-2024 [facility] Telephone ([facility]) CLARK LYLES ([id number]) 1935 M Date Time Provider Department 10/15/24 [facility] During your visit today, we recorded the following information about you: Radha Green, RN 10/15/2024 3:04 PM Signed Paulino- nurse- [facility]- reports he did patient eval today and will extend [facility] visits to 1 x week for 2 [...] Meds Comments as of 04/18/2021: Taking Saw [place]. Problem List As Of Date 10/15/2024 Noted Resolved BENIGN HYPERTENSION [I10] 01/08/2006 Anxiety state [F41.1] 01/05/2009 GERD (gastroesophageal reflux disease) [K21.9] 01/10/2011 BPH (benign prostatic hyperplasia) [N40.0] 03/17/2013 PAD (peripheral artery disease) ([facility]) [I73.9] 02/28/2014 Hyperlipidemia LDL goal <100 [E78.5] 03/28/2016 Hyperbilirubinemia [E80.6] 05/10/2016 Parkinson's disease ([facility]) [G20.A1] 07/11/2017 Angina pectoris ([facility]) [I20.9] 08/25/2019 Restless legs syndrome [G25.81] 01/27/2020 Iron deficiency anemia due to chronic blood los*01/27/2020 Coronary artery disease involving onondaga rabago*12/22/2020 S/P primary angioplasty with coronary stent [Z9*12/22/2020 Fall from standing [W19.XXXA] 09/20/2021 Encounter for support and coordination of trans*08/11/2023 Acute respiratory failure with hypoxia (HCC) [J*09/25/2023 Encounter Status:Closed by Radha GREEN on 10/30/24 [facility] 10-03-2024 [facility]NP[facility] Telephone (COUMWS) CLARK LYLES ([id number]) 1935 M Date Time Provider Department 10/03/24 BRIGITTE SEGAL During your visit today, we recorded the following information about you: Mary Balderas, RN 10/03/2024 2:54 PM Signed Jamie with [facility] is calling due to he saw patient [...] needs called back with information. Brigitte Segal APRN.QUALITY CONTROL LAB TECHNICIAN 10/03/2024 2:59 PM Signed Yes. Please increase O2 to 4l. Thank you for the recert. Shirley Rivera MA 10/03/2024 3:56 PM Signed Detailed message left on secure line for [facility] Shirley Rivera MA October 03, 2024 3:56 [...] Meds Comments as of 04/18/2021: Taking Saw [place]ro[place]. Problem List As Of Date 10/03/2024 Noted Resolved BENIGN HYPERTENSION [I10] 01/08/2006 Anxiety state [F41.1] 01/05/2009 GERD (gastroesophageal reflux disease) [K21.9] 01/10/2011 BPH (benign prostatic hyperplasia) [N40.0] 03/17/2013 PAD (peripheral artery disease) ([facility]) [I73.9] 02/28/2014 Hyperlipidemia LDL goal <100 [E78.5] 03/28/2016 Hyperbilirubinemia [E80.6] 05/10/2016 Parkinson's disease (HCC) [G20.A1] 07/11/2017 Angina pectoris (HCC) [I20.9] 08/25/2019 Restless legs syndrome [G25.81] 01/27/2020 Iron deficiency anemia due to chronic blood los*01/27/2020 Coronary artery disease involving onondaga rabago*12/22/2020 S/P primary angioplasty with coronary stent [Z9*12/22/2020 Fall from standing [W19.XXXA] 09/20/2021 Encounter for support and coordination of trans*08/11/2023 Acute respiratory failure with hypoxia (HCC) [J*09/25/2023 Encounter Status:Closed by SHIRLEY RIVERA on 10/03/24 [facility] CNOVon 09-19-2024 CNOV Office Visit (FAMPWS ) CLARK LYLES ([id number]) 1935 M Date Time Provider Department 09/19/24 2:40 PM [facility] During your visit today, we recorded the following information about you: Temperature Pulse Blood pressure Weight 98.7 degrees 80/minute 128/62 72.6 kg Brigitte Segal APRN.QUALITY CONTROL LAB TECHNICIAN 09/19/2024 3:25 PM Signed This is a [...] lipoma performed by Dr. Robe Mackenzie at [facility] REVSC OPN/PRQ FEM/POP W/STNT/ANGIOP VSL 03-18-14 RPR [...] 5. [place] (more content not included)... Normal [facility] Mikey 09-19-2024 JANETN Telephone (FAMPWS) CLARK LYLES Mega ([id number]) 1935 M Date Time Provider Department 09/19/24 BRIGITTE SEGAL During your visit today, we recorded the following information about you: Whit Sheridan RN 09/19/2024 2:23 PM Signed Rohan calling with [facility] Physical Therapy with plan of care for patient. Pt will be seen 1x per week for 4 weeks for functional mobility training. No call back needed if provider agreeable. ZACKARY Vines Jacqueline A, FINISHER BRUSH.[facility] 09/19/2024 3:33 PM Signed Sounds good. [...] Meds Comments as of 04/18/2021: Taking Saw [place]. Problem List As Of Date 09/19/2024 Noted [...] chronic blood los*01/27/2020 Coronary artery disease involving onondaga rabago*12/22/2020 S/P primary angioplasty with coronary stent [Z9*12/22/2020 Fall from standing [W19.XXXA] 09/20/2021 Encounter for support and coordination of trans*08/11/2023 Acute respiratory failure with hypoxia (HCC) [J*09/25/2023 Encounter Status:Closed by BRIGITTE SEGAL on 09/19/24 [facility] Mikey 09-17-2024 CNPN Telephone (FAMPWS) CLARK LYLES ([id number]) 1935 M Date Time Provider Department 09/17/24 BRIGITTE SEGAL During your visit today, we recorded the following information about you: Tracy Cedillo RN 09/17/2024 12:57 PM Signed Hellen calling from [facility] to report plan of care for patient and senior care will visit patient 1 time a week for 1 week and 2 times a week for 2 weeks. [facility] will work with patient on wound care (patient has skin tear to right elbow) and management of O2 levels. Hellen had no orders for wound care. Hellen cleaned wound and put on Vaseline gauze and band aid. Hellen also notes that patient is on Oxygen and thought that he was only going to be on oxygen for a week. Patient does not see client experience manager for a month. Hellen did not know if provider wanted to address Oxygen use. Patient is scheduled to see PCP 09/19/2024. No call back needed unless there are questions. ZACKARY Tristan Jacqueline A, SHUKRI.QUALITY CONTROL LAB TECHNICIAN 09/18/2024 8:09 AM Signed Patient will need to stay on oxygen until he follows up with pulmonary. I have not seen him since February 2024 therefore I am not really able to shed any light on his oxygen use. Not common to use oxygen for only a week. Tracy Cedillo RN 09/18/2024 9:53 AM Signed Haley from [facility] calls and reports that granddaughter had checked [...] provider tomorrow 09/19/2024. Please Contact Haley back [phone]. ZACKARY Tristan Jacqueline A, FINISHER BRUSH.QUALITY CONTROL LAB TECHNICIAN 09/18/2024 10:41 AM Signed Absolutely keep at [...] Date Reviewed: 03/27/2024 Reviewed by: Brigitte Segal APRN.QUALITY CONTROL LAB TECHNICIAN - Fully Assessed Reason for Visit: [facility] Plan of Care [Other] Prescriptions as of [...] Meds Comments as of 04/18/2021: Taking Saw [place]ro[place]. Problem List As Of Date 09/17/2024 Noted [...] chronic blood los*01/27/2020 Coronary artery disease involving onondaga rabago*12/22/2020 S/P primary angioplasty with coronary stent [Z9*12/22/2020 Fall from standing [W19.XXXA] 09/20/2021 Encounter for support and coordination of trans*08/11/2023 Acute respiratory failure with hypoxia (HCC) [J*09/25/2023 Encounter Status:Closed by TRACY CEDILLO on 09/22/24 [facility]15[facility]20[facility] CLARK LYLES ([id number]) 1935 M Date Time Provider Department 09/15/24 [facility] During your visit today, we recorded the following information about you: Tracy Cedillo RN 09/15/2024 3:32 PM Signed Rochelle from [facility] calls and states that patient is being discharged from [facility] PCU on 09/05/2024 with the diagnosis of hypoxia and acute respiratory failure. Rochelle asking if provider willing to follow patient with orders for senior care, physical therapy, occupational therapy and social work. If agreeable please give Rochelle a call back . Thank you, ZACKARY Tristan Jacqueline A, APRN.[facility] 09/15/2024 4:41 PM Signed Yes. Of course Brigitte Segal APRN.QUALITY CONTROL LAB TECHNICIAN 09/15/2024 5:31 PM Signed Patient is an [...] Signed Detailed message left for Rochelle at [facility] with verbal agreement of plan. Shirley Rivera MA September 16, 2024 9:12 AM Allergies As of Date: 09/15/2024 Noted Allergy Reaction LISINOPRIL 12/28/2009 3 - Cough SULFA (SULFONAMIDE ANTIBIOTICS) 03/09/2006 4 - Hives Date Reviewed: 03/27/2024 Reviewed by: Brigitte Segal APRN.QUALITY CONTROL LAB TECHNICIAN - Fully Assessed Reason for Visit: Home [...] Meds Comments as of 04/18/2021: Taking Saw [place]ro[place]. Problem List As Of Date 09/15/2024 Noted Resolved BENIGN HYPERTENSION [I10] 01/08/2006 Anxiety state [F41.1] 01/05/2009 GERD (gastroesophageal reflux disease) [K21.9] 01/10/2011 BPH (benign prostatic hyperplasia) [N40.0] 03/17/2013 PAD (peripheral artery disease) ([facility]) [I73.9] 02/28/2014 Hyperlipidemia LDL goal <100 [E78.5] 03/28/2016 Hyperbilirubinemia [E80.6] 05/10/2016 Parkinson's disease (HCC) [G20.A1] 07/11/2017 Angina pectoris (HCC) [I20.9] 08/25/2019 Restless legs syndrome [G25.81] 01/27/2020 Iron deficiency anemia due to chronic blood los*01/27/2020 Coronary artery disease involving onondaga rabago*12/22/2020 S/P primary angioplasty with coronary stent [Z9* (more content not included)... Normal [facility] Discharge Instructionon 08-30 Discharge Instruction [facility] Medical Records Department [address] [place] [address] Instructions for Home/Discharge Instructions 09/15/24905 MR#: [id number] Acct: [id number] Name: CLARK LYLES Rep #: [id number] : 1935 88 From: John Soliz MD PCP: Brigitte Segal, VARNISHING UNIT OPERATOR Status:ADM IN Discharge Instructions Diet Discharge Diet: [...] Care 09/15/24 1343 John Soliz MD CC: VARNISHING UNIT OPERATOR Brigitte Segal; Dr. Jerrell Faith MD; Dr. Lester Perdomo DO Signed Normal [facility] Serum or plasma trough vanco mycin levelOrdered By: Jerrell Monterroso on 09-15-2024 Vancomycin trough [Mass/Vol] 16.5 ug/mL High 5.0-15.0 [facility] Comment on above: VANCOMYCIN STANDARED DRUG THERAPY TROUGH LEVEL: 5.0 - 15.0 mg/L VANCOMYCIN HIGH INTENSITY THERAPY TROUGH LEVEL: 15.0 - 20.0 mg/L High Intensity therapy recommended for serious lifethreatening infections include:- Mcavozearl-Vavawyrukjuu-Mygodomhb (Ventilator/Healtcare Associated)-Sepsis PLEASE CONTACT PHARMACY SERVICES (#[id number]) FOR INTERPRETATIONOF RESULTS. Vancomycin, Trough Levelon 0 09-15-2024 VANCO, TROUGH 16.5 ug/mL High 5.0-15.0 [facility] Comment on above: Order Comment: Comme nts: Trough to be drawn 30 mins prior to scheduled [id number] Result Comment: VANC OMYCIN STANDARED DRUG THERAPY TROUGH LEVEL: 5.0 - 15.0 mg/L VANCOMYCIN HIGH INTENSITY THERAPY TROUGH LEVEL: 15.0 - 20.0 mg/L High Intensity therapy recommended for serious life threatening infections include: - Meningitis -Endocarditis -Pneumonia (Ventilator/Healtcare Associated) -Sepsis PLEASE CONTACT PHARMACY SERVICES (#[id number]) FOR INTERPRETATION OF RESULTS. Performed By: #### L 100.0100, L500.2500 #### [facility] [address] [place], [address] Absolute lymphocyte countOrd ered By: Lester Perdomo on 09-14-2024 Lymphocytes Auto (Unsp spec) [#/Vol] 1.09 10*3/uL 0.83-4.51 [facility] Absolute neutrophil countOrd ered By: Lester Perdomo on 09-14-2024 Neutrophils (Bld) [#/Vol] 12.0 10*3/uL High 2.0-7.7 [facility] Automated lymphocyte count a s percentage of total leukocytesOrdered By: Lester Perdomo on 09-14-2024 Lymphocytes/100 WBC Auto (Unsp spec) 7.3 % Low 19-41 [facility] Basic Metabolic Profile (BMP )on 09-14-2024 BUN/CRE 44.2 RATIO High 10-20 [facility] Comment on above: Performed By: #### L 100.0100, L500.2500 #### [facility] [address] [place], [address] CA,Total 8.6 mg/dL Normal 8.5-10.1 [facility] Comment on above: Performed By: #### L 100.0100, L500.2500 #### [facility] [address] [place], [address] Chloride [Moles/Vol] 106 mmol/L Normal 98-107 [facility] Comment on above: Performed By: #### L 100.0100, L500.2500 #### [facility] [address] [place], [address] CO2 [Moles/Vol] 27.0 mmol/L Normal 21.0-32.0 [facility] Comment on above: Performed By: #### L 100.0100, L500.2500 #### [facility] [address] [place], [address] Creatinine [Mass/Vol] 0.84 mg/dL Normal 0.70-1.30 [facility] Comment on above: Result Comment: The validity of the calculated GFR GFRAA in patients over 70 years has not been determined. Clinical correlation is essential. Performed By: #### L 100.0100, L500.2500 #### [facility] [address] [place], [address] ECRCL 63.04 ml/min Normal [facility] Comment on above: Performed By: #### L 100.0100, L500.2500 #### [facility] [address] [place], [address] EST GFR - AA 112 mL/min Normal >60 [facility] Comment on above: Result Comment: Afri can Argentine GFR Calc Performed By: #### L 100.0100, L500.2500 #### [facility] [address] [place], [address] GAP 6 Normal 5-15 [facility] Comment on above: Performed By: #### L 100.0100, L500.2500 #### [facility] [address] [place], [address] GFR/1.73 sq M.predicted among non-blacks MDRD (S/P/Bld) [Vol rate/Area] 92 mL/min/{1.73_m2} Normal >60 [facility] Comment on above: Result Comment: Non- GFR Calc Performed By: #### L 100.0100, L500.2500 #### [facility] [address] [place], [address] Glucose [Mass/Vol] 156 mg/dL High 74-106 [facility] Comment on above: Result Comment: Fast ing Glucose result greater than or equal to 126 mg/dL suggests DIABETES MELLITUS per A.D.A. criteria. Performed By: #### L 100.0100, L500.2500 #### [facility] [address] [place], [address] Potassium [Moles/Vol] 3.4 mmol/L Low 3.5-5.1 [facility] Comment on above: Performed By: #### L 100.0100, L500.2500 #### [facility] [address] [place], [address] Sodium [Moles/Vol] 139 mmol/L Normal 136-145 [facility] Comment on above: Performed By: #### L 100.0100, L500.2500 #### [facility] [address] [place], [address] Urea nitrogen [Mass/Vol] 37 mg/dL High 7-18 [facility] Comment on above: Performed By: #### L 100.0100, L500.2500 #### [facility] [address] [place], [address] Basophil percentageOrdered B y: Lester Perdomo on 09-14-2024 Basophils/100 WBC (Bld) 0.1 % 0-1 [facility] Blood urea nitrogen (BUN)/cr eatinine ratioOrdered By: Lester Perdomo on 09-14-2024 Urea nitrogen/Creatinine [Mass ratio] 44.2 mg/mg High 10-20 [facility] CBC W/Diff, Automatedon 08-30 REACTIVE LYMPH 1+ Normal [facility] Comment on above: Performed By: #### L 100.0100, L500.2500 #### [facility] [address] [place], [address] Carbon dioxide measurementOr dered By: Lester Perdomo on 09-14-2024 CO2 [Moles/Vol] 27.0 mmol/L 21.0-32.0 [facility] Chloride measurementOrdered By: Lester Perdomo on 09-14-2024 Chloride [Moles/Vol] 106 mmol/L 98-107 [facility] Eosinophil percentageOrdered By: Lester Perdomo on 09-14-2024 Eosinophils/100 WBC (Bld) 0.3 % 0-5 [facility] Erythrocyte distribution wid th ratioOrdered By: Lester Perdomo on 09-14-2024 Erythrocyte distribution width (RBC) [Ratio] 16.1 % High 11.6-14.6 [facility] Erythrocyte distribution wid th standard deviationOrdered By: Lester Perdomo on 09-14-2024 Erythrocyte distribution width (RBC) [Ratio] 56.8 fl High 35.1-43.9 [facility] Glomerular filtration rate ( GFR) estimationOrdered By: Lester Perdomo on 09-14-2024 GFR/1.73 sq M.predicted among non-blacks MDRD (S/P/Bld) [Vol rate/Area] 92 mL/min/{1.73_m2} >60 [facility] Comment on above: Non- GFR Calc Glucose measurementOrdered B y: Lester Perdomo on 09-14-2024 Glucose [Mass/Vol] 156 mg/dL High 74-106 [facility] Comment on above: Fasting Glucose resu lt greater than or equal to 126 mg/dL suggests DIABETES MELLITUS per A.D.A. criteria. Hematocrit Auto (Bld) [Volum e fraction]Ordered By: Lester Perdomo on 09-14-2024 Hematocrit (Bld) [Volume fraction] 43.5 % 40-54 [facility] Hemoglobin measurementOrdere d By: Lester Perdomo on 09-14-2024 Hemoglobin (Bld) [Mass/Vol] 14.3 g/dL 13.0-16.5 [facility] Immature granulocytes/100 WB C Auto (Bld)Ordered By: Lester Perdomo on 09-14-2024 Immature granulocytes/100 WBC (Bld) 4.800 % High 0.0-0.9 [facility] Comment on above: IG% - Immature Granu locytes (promyelocytes, myelocytes and metamyelocytes) > 1% indicates that a LEFT SHIFT is Present. MCV (mean corpuscular volume ) determinationOrdered By: Lester Perdomo on 09-14-2024 MCV (RBC) [Entitic vol] 96.2 fL High 80-94 [facility] Mean corpuscular hemoglobin (MCH) determinationOrdered By: Lester Perdomo on 09-14-2024 MCH (RBC) [Entitic mass] 31.6 pg 27.0-32.0 [facility] Mean corpuscular hemoglobin concentration (MCHC) determinationOrdered By: Lester Perdomo on 09-14-2024 MCHC (RBC) [Mass/Vol] 32.9 g/dL 32-36 [facility] Mean platelet volume determi nationOrdered By: Lester Perdomo on 09-14-2024 Platelet mean volume (Bld) [Entitic vol] 11.7 fL 6.2-12.0 [facility] Monocyte percentageOrdered B y: Lester Perdomo on 09-14-2024 Monocytes/100 WBC (Bld) 7.0 % 0-10 [facility] Neutrophil percentageOrdered By: Lester Perdomo on 09-14-2024 Neutrophils/100 WBC (Bld) 80.5 % High 47-70 [facility] Nucleated red blood cell per centageOrdered By: Lester Perdomo on 09-14-2024 Nucleated RBC/100 WBC (Bld) [Ratio] 0 % 0-5 [facility] Platelet countOrdered By: Geovany Perdomo on 09-14-2024 Platelets (Bld) [#/Vol] 152 10*3/uL 150-450 [facility] Potassium measurementOrdered By: Lester Perdomo on 09-14-2024 Potassium [Moles/Vol] 3.4 mmol/L Low 3.5-5.1 [facility] RBC Auto (Bld) [#/Vol]Ordere d By: Lester Perdomo on 09-14-2024 RBC (Bld) [#/Vol] 4.52 10*6/uL Low 4.6-6.2 [facility] Serum anion gap measurementO rdered By: Lseter Perdomo on 09-14-2024 Anion gap [Moles/Vol] 6 mmol/L 5-15 [facility] Serum or plasma calcium nichole urement (mass/volume)Ordered By: Lester Perdomo on 09-14-2024 Calcium [Mass/Vol] 8.6 mg/dL 8.5-10.1 [facility] Serum or plasma creatinine m easurement (mass/volume)Ordered By: Lester Perdomo on 09-14-2024 Creatinine [Mass/Vol] 0.84 mg/dL 0.70-1.30 [facility] Comment on above: The validity of the calculated GFR & GFRAA in patients over 70 years has not been determined. Clinical correlation is essential. Serum or plasma urea nitroge n measurement (mass/volume)Ordered By: Lester Perdomo on 09-14-2024 Urea nitrogen [Mass/Vol] 37 mg/dL High 7-18 [facility] Sodium levelOrdered By: Lester Perdomo on 09-14-2024 Sodium [Moles/Vol] 139 mmol/L 136-145 [facility] White blood cell (WBC) count Ordered By: Lester Perdomo on 09-14-2024 WBC (Bld) [#/Vol] 14.9 10*3/uL High 4.4-11.0 [facility] Basic Metabolic Profile (BMP )on 09-13-2024 BUN/CRE 30.9 RATIO High 10-20 [facility] Comment on above: Performed By: #### L 100.0100, L500.2500 #### [facility] [address] [place], [address] CA,Total 8.6 mg/dL Normal 8.5-10.1 [facility] Comment on above: Performed By: #### L 100.0100, L500.2500 #### [facility] [address] [place], [address] Chloride [Moles/Vol] 103 mmol/L Normal 98-107 [facility] Comment on above: Performed By: #### L 100.0100, L500.2500 #### [facility] [address] [place], [address] CO2 [Moles/Vol] 33.0 mmol/L High 21.0-32.0 [facility] Comment on above: Performed By: #### L 100.0100, L500.2500 #### [facility] [address] [place], [address] Creatinine [Mass/Vol] 1.10 mg/dL Normal 0.70-1.30 [facility] Comment on above: Result Comment: The validity of the calculated GFR GFRAA in patients over 70 years has not been determined. Clinical correlation is essential. Performed By: #### L 100.0100, L500.2500 #### [facility] [address] [place], [address] ECRCL 49.57 ml/min Normal [facility] Comment on above: Performed By: #### L 100.0100, L500.2500 #### [facility] [address] [place], [address] EST GFR - AA 82 mL/min Normal >60 [facility] Comment on above: Result Comment: Afri can Argentine GFR Calc Performed By: #### L 100.0100, L500.2500 #### [facility] [address] [place], [address] GAP 3 Low 5-15 [facility] Comment on above: Performed By: #### L 100.0100, L500.2500 #### [facility] [address] [place], [address] GFR/1.73 sq M.predicted among non-blacks MDRD (S/P/Bld) [Vol rate/Area] 67 mL/min/{1.73_m2} Normal >60 [facility] Comment on above: Result Comment: Non- GFR Calc Performed By: #### L 100.0100, L500.2500 #### [facility] [address] [place], [address] Glucose [Mass/Vol] 168 mg/dL High 74-106 [facility] Comment on above: Result Comment: Fast ing Glucose result greater than or equal to 126 mg/dL suggests DIABETES MELLITUS per A.D.A. criteria. Performed By: #### L 100.0100, L500.2500 #### [facility] [address] [place], [address] Potassium [Moles/Vol] 3.3 mmol/L Low 3.5-5.1 [facility] Comment on above: Performed By: #### L 100.0100, L500.2500 #### [facility] [address] [place], [address] Sodium [Moles/Vol] 139 mmol/L Normal 136-145 [facility] Comment on above: Performed By: #### L 100.0100, L500.2500 #### [facility] [address] [place], [address] Urea nitrogen [Mass/Vol] 34 mg/dL High 7-18 [facility] Comment on above: Performed By: #### L 100.0100, L500.2500 #### [facility] [address] [place], [address] CBC W/Diff, Automatedon 02- Absolute Lymph 0.43 X10 3/uL Low 0.83-4.51 [facility] Comment on above: Performed By: #### L 100.0100, L500.2500 #### [facility] [address] [place], [address] Absolute Neut 12.2 X10 3/uL High 2.0-7.7 [facility] Comment on above: Performed By: #### L 100.0100, L500.2500 #### [facility] [address] [place], [address] Basophils/100 WBC (Bld) 0.7 % Normal 0-1 [facility] Comment on above: Performed By: #### L 100.0100, L500.2500 #### [facility] [address] [place], [address] Eosinophils/100 WBC (Bld) 0.0 % Normal 0-5 [facility] Comment on above: Performed By: #### L 100.0100, L500.2500 #### [facility] [address] [place], [address] Erythrocyte distribution width (RBC) [Ratio] 15.8 % High 11.6-14.6 [facility] Comment on above: Performed By: #### L 100.0100, L500.2500 #### [facility] [address] [place], [address] Hematocrit (Bld) [Volume fraction] 45.7 % Normal 40-54 [facility] Comment on above: Performed By: #### L 100.0100, L500.2500 #### [facility] [address] [place], [address] Hemoglobin (Bld) [Mass/Vol] 15.5 g/dL Normal 13.0-16.5 [facility] Comment on above: Performed By: #### L 100.0100, L500.2500 #### [facility] [address] [place], [address] IG% 2.600 High 0.0-0.9 [facility] Comment on above: Result Comment: IG% - Immature Granulocytes (promyelocytes, myelocytes and metamyelocytes) > 1% indicates that a LEFT SHIFT is Present. Performed By: #### L 100.0100, L500.2500 #### [facility] [address] [place], [address] Lymphocytes/100 WBC (Bld) 3.2 % Low 19-41 [facility] Comment on above: Performed By: #### L 100.0100, L500.2500 #### [facility] [address] [place], [address] MCH (RBC) [Entitic mass] 32.0 pg Normal 27.0-32.0 [facility] Comment on above: Performed By: #### L 100.0100, L500.2500 #### [facility] [address] [place], [address] MCHC (RBC) [Mass/Vol] 33.9 g/dL Normal 32-36 [facility] Comment on above: Performed By: #### L 100.0100, L500.2500 #### [facility] [address] [place], [address] MCV (RBC) [Entitic vol] 94.4 fL High 80-94 [facility] Comment on above: Performed By: #### L 100.0100, L500.2500 #### [facility] [address] [place], [address] Monocytes/100 WBC (Bld) 3.8 % Normal 0-10 [facility] Comment on above: Performed By: #### L 100.0100, L500.2500 #### [facility] [address] [place], [address] Neutrophils/100 WBC (Bld) 89.7 % High 47-70 [facility] Comment on above: Performed By: #### L 100.0100, L500.2500 #### [facility] [address] [place], [address] Nucleated RBC (Bld) [#/Vol] 0 10*3/uL Normal 0-5 [facility] Comment on above: Performed By: #### L 100.0100, L500.2500 #### [facility] [address] [place], [address] Platelet mean volume (Bld) [Entitic vol] 11.4 fL Normal 6.2-12.0 [facility] Comment on above: Performed By: #### L 100.0100, L500.2500 #### [facility] [address] [place], [address] Platelets (Bld) [#/Vol] 162 10*3/uL Normal 150-450 [facility] Comment on above: Performed By: #### L 100.0100, L500.2500 #### [facility] [address] [place], [address] RBC (Bld) [#/Vol] 4.84 10*6/uL Normal 4.6-6.2 [facility] Comment on above: Performed By: #### L 100.0100, L500.2500 #### [facility] [address] [place], [address] RDW SD 54.8 fl High 35.1-43.9 [facility] Comment on above: Performed By: #### L 100.0100, L500.2500 #### [facility] [address] [place], [address] WBC (Bld) [#/Vol] 13.5 10*3/uL High 4.4-11.0 [facility] Comment on above: Performed By: #### L 100.0100, L500.2500 #### [facility] [address] [place], [address] Vancomycin, Trough Levelon 0 - VANCO, TROUGH 17.0 ug/mL High 5.0-15.0 [facility] Comment on above: Order Comment: Comme nts: DRAW 30 MIN PRIOR TO DOSE 0330 Result Comment: VANC OMYCIN STANDARED DRUG THERAPY TROUGH LEVEL: 5.0 - 15.0 mg/L VANCOMYCIN HIGH INTENSITY THERAPY TROUGH LEVEL: 15.0 - 20.0 mg/L High Intensity therapy recommended for serious life threatening infections include: - Meningitis -Endocarditis -Pneumonia (Ventilator/Healtcare Associated) -Sepsis PLEASE CONTACT PHARMACY SERVICES (#[id number]) FOR INTERPRETATION OF RESULTS. Performed By: #### L 501.8820 #### [facility] [address] [place], [address] Basic Metabolic Profile (BMP )on 09-12-2024 BUN/CRE 33.2 RATIO High 10-20 [facility] Comment on above: Performed By: #### L 100.0100, L500.2500 #### [facility] [address] [place], [address] CA,Total 8.5 mg/dL Normal 8.5-10.1 [facility] Comment on above: Performed By: #### L 100.0100, L500.2500 #### [facility] [address] [place], [address] Chloride [Moles/Vol] 105 mmol/L Normal 98-107 [facility] Comment on above: Performed By: #### L 100.0100, L500.2500 #### [facility] [address] [place], [address] CO2 [Moles/Vol] 28.0 mmol/L Normal 21.0-32.0 [facility] Comment on above: Performed By: #### L 100.0100, L500.2500 #### [facility] [address] [place], [address] Creatinine [Mass/Vol] 0.96 mg/dL Normal 0.70-1.30 [facility] Comment on above: Result Comment: The validity of the calculated GFR GFRAA in patients over 70 years has not been determined. Clinical correlation is essential. Performed By: #### L 100.0100, L500.2500 #### [facility] [address] [place], [address] ECRCL 56.80 ml/min Normal [facility] Comment on above: Performed By: #### L 100.0100, L500.2500 #### [facility] [address] [place], [address] EST GFR - AA 95 mL/min Normal >60 [facility] Comment on above: Result Comment: Afri can [place] GFR Calc Performed By: #### L 100.0100, L500.2500 #### [facility] [address] [place], [address] GAP 7 Normal 5-15 [facility] Comment on above: Performed By: #### L 100.0100, L500.2500 #### [facility] [address] [place], [address] GFR/1.73 sq M.predicted among non-blacks MDRD (S/P/Bld) [Vol rate/Area] 78 mL/min/{1.73_m2} Normal >60 [facility] Comment on above: Result Comment: Non- GFR Calc Performed By: #### L 100.0100, L500.2500 #### [facility] [address] [place], [address] Glucose [Mass/Vol] 156 mg/dL High 74-106 [facility] Comment on above: Result Comment: Fast ing Glucose result greater than or equal to 126 mg/dL suggests DIABETES MELLITUS per A.D.A. criteria. Performed By: #### L 100.0100, L500.2500 #### [facility] [address] [place], [address] Potassium [Moles/Vol] 3.4 mmol/L Low 3.5-5.1 [facility] Comment on above: Performed By: #### L 100.0100, L500.2500 #### [facility] [address] [place], [address] Sodium [Moles/Vol] 140 mmol/L Normal 136-145 [facility] Comment on above: Performed By: #### L 100.0100, L500.2500 #### [facility] [address] [place], [address] Urea nitrogen [Mass/Vol] 32 mg/dL High 7-18 [facility] Comment on above: Performed By: #### L 100.0100, L500.2500 #### [facility] [address] [place], [address] CBC W/Diff, Automatedon 02-08 02-2024 Absolute Lymph 0.46 X10 3/uL Low 0.83-4.51 [facility] Comment on above: Performed By: #### L 100.0100, L500.2500 #### [facility] [address] [place], [address] Absolute Neut 11.3 X10 3/uL High 2.0-7.7 [facility] Comment on above: Performed By: #### L 100.0100, L500.2500 #### [facility] [address] [place], [address] Basophils/100 WBC (Bld) 0.2 % Normal 0-1 [facility] Comment on above: Performed By: #### L 100.0100, L500.2500 #### [facility] [address] [place], [address] Eosinophils/100 WBC (Bld) 0.0 % Normal 0-5 [facility] Comment on above: Performed By: #### L 100.0100, L500.2500 #### [facility] [address] [place], [address] Erythrocyte distribution width (RBC) [Ratio] 15.9 % High 11.6-14.6 [facility] Comment on above: Performed By: #### L 100.0100, L500.2500 #### [facility] [address] [place], [address] Hematocrit (Bld) [Volume fraction] 44.7 % Normal 40-54 [facility] Comment on above: Performed By: #### L 100.0100, L500.2500 #### [facility] [address] [place], [address] Hemoglobin (Bld) [Mass/Vol] 14.9 g/dL Normal 13.0-16.5 [facility] Comment on above: Performed By: #### L 100.0100, L500.2500 #### [facility] [address] [place], [address] IG% 1.700 High 0.0-0.9 [facility] Comment on above: Result Comment: IG% - Immature Granulocytes (promyelocytes, myelocytes and metamyelocytes) > 1% indicates that a LEFT SHIFT is Present. Performed By: #### L 100.0100, L500.2500 #### [facility] [address] [place], [address] Lymphocytes/100 WBC (Bld) 3.6 % Low 19-41 [facility] Comment on above: Performed By: #### L 100.0100, L500.2500 #### [facility] [address] [place], [address] MCH (RBC) [Entitic mass] 31.6 pg Normal 27.0-32.0 [facility] Comment on above: Performed By: #### L 100.0100, L500.2500 #### [facility] [address] [place], [address] MCHC (RBC) [Mass/Vol] 33.3 g/dL Normal 32-36 [facility] Comment on above: Performed By: #### L 100.0100, L500.2500 #### [facility] [address] [place], [address] MCV (RBC) [Entitic vol] 94.7 fL High 80-94 [facility] Comment on above: Performed By: #### L 100.0100, L500.2500 #### [facility] [address] [place], [address] Monocytes/100 WBC (Bld) 4.7 % Normal 0-10 [facility] Comment on above: Performed By: #### L 100.0100, L500.2500 #### [facility] [address] [place], [address] Neutrophils/100 WBC (Bld) 89.8 % High 47-70 [facility] Comment on above: Performed By: #### L 100.0100, L500.2500 #### [facility] [address] [place], [address] Nucleated RBC (Bld) [#/Vol] 0 10*3/uL Normal 0-5 [facility] Comment on above: Performed By: #### L 100.0100, L500.2500 #### [facility] [address] [place], [address] Platelet mean volume (Bld) [Entitic vol] 11.5 fL Normal 6.2-12.0 [facility] Comment on above: Performed By: #### L 100.0100, L500.2500 #### [facility] [address] [place], [address] Platelets (Bld) [#/Vol] 165 10*3/uL Normal 150-450 [facility] Comment on above: Performed By: #### L 100.0100, L500.2500 #### [facility] [address], [address] RBC (Bld) [#/Vol] 4.72 10*6/uL Normal 4.6-6.2 [facility] Comment on above: Performed By: #### L 100.0100, L500.2500 #### [facility] [address] [place], [address] RDW SD 55.7 fl High 35.1-43.9 [facility] Comment on above: Performed By: #### L 100.0100, L500.2500 #### [facility] [address] [place], [address] WBC (Bld) [#/Vol] 12.6 10*3/uL High 4.4-11.0 [facility] Comment on above: Performed By: #### L 100.0100, L500.2500 #### [facility] [address] [place], [address] Respiratory Cultureon 2024 RESPC Mixed normal respira tory argenis. No Haemophilus, Streptococcus pneumoniae, beta-hemolytic Streptococcus or Staphylococcus aureus isolated. Normal [facility] Comment on above: Performed By: #### M 100.2400, M100.2000 ####[facility] [address] [place], [address] CBC W/Diff, Automatedon 08-30 Absolute Lymph 0.43 X10 3/uL Low 0.83-4.51 [facility] Comment on above: Performed By: #### L 100.0100 #### [facility] [address] [place], [address] Absolute Neut 11.6 X10 3/uL High 2.0-7.7 [facility] Comment on above: Performed By: #### L 100.0100 #### [facility] [address] [place], [address] Basophils/100 WBC (Bld) 0.1 % Normal 0-1 [facility] Comment on above: Performed By: #### L 100.0100 #### [facility] [address] [place], [address] Eosinophils/100 WBC (Bld) 0.0 % Normal 0-5 [facility] Comment on above: Performed By: #### L 100.0100 #### [facility] [address] [place], [address] Erythrocyte distribution width (RBC) [Ratio] 16.1 % High 11.6-14.6 [facility] Comment on above: Performed By: #### L 100.0100 #### [facility] [address] [place], [address] Hematocrit (Bld) [Volume fraction] 44.9 % Normal 40-54 [facility] Comment on above: Performed By: #### L 100.0100 #### [facility] [address] [place], [address] Hemoglobin (Bld) [Mass/Vol] 14.8 g/dL Normal 13.0-16.5 [facility] Comment on above: Performed By: #### L 100.0100 #### [facility] [address] [place], [address] IG% 1.600 High 0.0-0.9 [facility] Comment on above: Result Comment: IG% - Immature Granulocytes (promyelocytes, myelocytes and metamyelocytes) > 1% indicates that a LEFT SHIFT is Present. Performed By: #### L 100.0100 #### [facility] [address] [place], [address] Lymphocytes/100 WBC (Bld) 3.4 % Low 19-41 [facility] Comment on above: Performed By: #### L 100.0100 #### [facility] [address] [place], [address] MCH (RBC) [Entitic mass] 31.5 pg Normal 27.0-32.0 [facility] Comment on above: Performed By: #### L 100.0100 #### [facility] [address] [place], [address] MCHC (RBC) [Mass/Vol] 33.0 g/dL Normal 32-36 [facility] Comment on above: Performed By: #### L 100.0100 #### [facility] [address] [place], [address] MCV (RBC) [Entitic vol] 95.5 fL High 80-94 [facility] Comment on above: Performed By: #### L 100.0100 #### [facility] [address] [place], [address] Monocytes/100 WBC (Bld) 4.1 % Normal 0-10 [facility] Comment on above: Performed By: #### L 100.0100 #### [facility] [address] [place], [address] Neutrophils/100 WBC (Bld) 90.8 % High 47-70 [facility] Comment on above: Performed By: #### L 100.0100 #### [facility] [address] [place], [address] Nucleated RBC (Bld) [#/Vol] 0 10*3/uL Normal 0-5 [facility] Comment on above: Performed By: #### L 100.0100 #### [facility] [address] [place], [address] Platelet mean volume (Bld) [Entitic vol] 11.3 fL Normal 6.2-12.0 [facility] Comment on above: Performed By: #### L 100.0100 #### [facility] [address] [place], [address] Platelets (Bld) [#/Vol] 156 10*3/uL Normal 150-450 [facility] Comment on above: Performed By: #### L 100.0100 #### [facility] [address] [place], [address] RBC (Bld) [#/Vol] 4.70 10*6/uL Normal 4.6-6.2 [facility] Comment on above: Performed By: #### L 100.0100 #### [facility] [address] [place], [address] RDW SD 57.0 fl High 35.1-43.9 [facility] Comment on above: Performed By: #### L 100.0100 #### [facility] [address] [place], [address] WBC (Bld) [#/Vol] 12.8 10*3/uL High 4.4-11.0 [facility] Comment on above: Performed By: #### L 100.0100 #### [facility] [address] [place], [address] Basic Metabolic Profile (BMP )on 09-10-2024 BUN/CRE 37.5 RATIO High 10-20 [facility] Comment on above: Performed By: #### L 100.0100, L500.2500 #### [facility] [address] [place], [address] CA,Total 8.9 mg/dL Normal 8.5-10.1 [facility] Comment on above: Performed By: #### L 100.0100, L500.2500 #### [facility] [address] [place], [address] Chloride [Moles/Vol] 111 mmol/L High 98-107 [facility] Comment on above: Performed By: #### L 100.0100, L500.2500 #### [facility] [address] [place], [address] CO2 [Moles/Vol] 27.0 mmol/L Normal 21.0-32.0 [facility] Comment on above: Performed By: #### L 100.0100, L500.2500 #### [facility] [address] [place], [address] Creatinine [Mass/Vol] 0.77 mg/dL Normal 0.70-1.30 [facility] Comment on above: Result Comment: The validity of the calculated GFR GFRAA in patients over 70 years has not been determined. Clinical correlation is essential. Performed By: #### L 100.0100, L500.2500 #### [facility] [address] [place], [address] ECRCL 67.03 ml/min Normal [facility] Comment on above: Performed By: #### L 100.0100, L500.2500 #### [facility] [address] [place], [address] EST GFR - AA 122 mL/min Normal >60 [facility] Comment on above: Result Comment: Afri can Argentine GFR Calc Performed By: #### L 100.0100, L500.2500 #### [facility] [address] [place], [address] GAP 5 Normal 5-15 [facility] Comment on above: Performed By: #### L 100.0100, L500.2500 #### [facility] [address] [place], [address] GFR/1.73 sq M.predicted among non-blacks MDRD (S/P/Bld) [Vol rate/Area] 101 mL/min/{1.73_m2} Normal >60 [facility] Comment on above: Result Comment: Non- GFR Calc Performed By: #### L 100.0100, L500.2500 #### [facility] [address] [place], [address] Glucose [Mass/Vol] 132 mg/dL High 74-106 [facility] Comment on above: Result Comment: Fast ing Glucose result greater than or equal to 126 mg/dL suggests DIABETES MELLITUS per A.D.A. criteria. Performed By: #### L 100.0100, L500.2500 #### [facility] [address] [place], [address] Potassium [Moles/Vol] 3.7 mmol/L Normal 3.5-5.1 [facility] Comment on above: Performed By: #### L 100.0100, L500.2500 #### [facility] [address] [place], [address] Sodium [Moles/Vol] 142 mmol/L Normal 136-145 [facility] Comment on above: Performed By: #### L 100.0100, L500.2500 #### [facility] [address] [place], [address] Urea nitrogen [Mass/Vol] 29 mg/dL High 7-18 [facility] Comment on above: Performed By: #### L 100.0100, L500.2500 #### [facility] [address] [place], [address] CBC W/Diff, Automatedon -07 31-2024 Absolute Lymph 0.39 X10 3/uL Low 0.83-4.51 [facility] Comment on above: Performed By: #### L 100.0100, L500.2500 #### [facility] [address] [place], [address] Absolute Neut 10.7 X10 3/uL High 2.0-7.7 [facility] Comment on above: Performed By: #### L 100.0100, L500.2500 #### [facility] [address] [place], [address] Basophils/100 WBC (Bld) 0.2 % Normal 0-1 [facility] Comment on above: Performed By: #### L 100.0100, L500.2500 #### [facility] [address] [place], [address] Eosinophils/100 WBC (Bld) 0.0 % Normal 0-5 [facility] Comment on above: Performed By: #### L 100.0100, L500.2500 #### [facility] [address] [place], [address] Erythrocyte distribution width (RBC) [Ratio] 16.5 % High 11.6-14.6 [facility] Comment on above: Performed By: #### L 100.0100, L500.2500 #### [facility] [address] [place], [address] Hematocrit (Bld) [Volume fraction] 43.4 % Normal 40-54 [facility] Comment on above: Performed By: #### L 100.0100, L500.2500 #### [facility] [address] [place], [address] Hemoglobin (Bld) [Mass/Vol] 14.7 g/dL Normal 13.0-16.5 [facility] Comment on above: Performed By: #### L 100.0100, L500.2500 #### [facility] [address] [place], [address] IG% 1.200 High 0.0-0.9 [facility] Comment on above: Result Comment: IG% - Immature Granulocytes (promyelocytes, myelocytes and metamyelocytes) > 1% indicates that a LEFT SHIFT is Present. Performed By: #### L 100.0100, L500.2500 #### [facility] [address] [place], [address] Lymphocytes/100 WBC (Bld) 3.3 % Low 19-41 [facility] Comment on above: Performed By: #### L 100.0100, L500.2500 #### [facility] [address] [place], [address] MCH (RBC) [Entitic mass] 32.3 pg High 27.0-32.0 [facility] Comment on above: Performed By: #### L 100.0100, L500.2500 #### [facility] [address] [place], [address] MCHC (RBC) [Mass/Vol] 33.9 g/dL Normal 32-36 [facility] Comment on above: Performed By: #### L 100.0100, L500.2500 #### [facility] [address] [place], [address] MCV (RBC) [Entitic vol] 95.4 fL High 80-94 [facility] Comment on above: Performed By: #### L 100.0100, L500.2500 #### [facility] [address] [place], [address] Monocytes/100 WBC (Bld) 4.3 % Normal 0-10 [facility] Comment on above: Performed By: #### L 100.0100, L500.2500 #### [facility] [address] [place], [address] Neutrophils/100 WBC (Bld) 91.0 % High 47-70 [facility] Comment on above: Performed By: #### L 100.0100, L500.2500 #### [facility] [address] [place], [address] Nucleated RBC (Bld) [#/Vol] 0 10*3/uL Normal 0-5 [facility] Comment on above: Performed By: #### L 100.0100, L500.2500 #### [facility] [address] [place], [address] Platelet mean volume (Bld) [Entitic vol] 11.9 fL Normal 6.2-12.0 [facility] Comment on above: Performed By: #### L 100.0100, L500.2500 #### [facility] [address] [place], [address] Platelets (Bld) [#/Vol] 166 10*3/uL Normal 150-450 [facility] Comment on above: Performed By: #### L 100.0100, L500.2500 #### [facility] [address] [place], [address] RBC (Bld) [#/Vol] 4.55 10*6/uL Low 4.6-6.2 [facility] Comment on above: Performed By: #### L 100.0100, L500.2500 #### [facility] [address] [place], [address] RDW SD 57.2 fl High 35.1-43.9 [facility] Comment on above: Performed By: #### L 100.0100, L500.2500 #### [facility] [address] [place], [address] WBC (Bld) [#/Vol] 11.8 10*3/uL High 4.4-11.0 [facility] Comment on above: Performed By: #### L 100.0100, L500.2500 #### [facility] [address] [place], [address] Gram Stainon 09-10-2024 GS Acceptable Specimen? Yes (<25 Epithelial cells per/lpf) Gram Stain 2+ Gram positive cocci 2+ Gram positive rods 1+ Red Blood Cells 1+ White Blood Cells 1+ Epithelial cells Normal [facility] Comment on above: Performed By: #### M 100.2400, M100.2000 ####[facility] [address] [place], [address] Basic Metabolic Profile (BMP )on 09-09-2024 BUN/CRE 35.1 RATIO High 10-20 [facility] Comment on above: Performed By: #### L 100.0100, L500.2500 #### [facility] [address] [place], [address] CA,Total 8.4 mg/dL Low 8.5-10.1 [facility] Comment on above: Performed By: #### L 100.0100, L500.2500 #### [facility] [address] [place], [address] Chloride [Moles/Vol] 107 mmol/L Normal 98-107 [facility] Comment on above: Performed By: #### L 100.0100, L500.2500 #### [facility] [address] [place], [address] CO2 [Moles/Vol] 24.0 mmol/L Normal 21.0-32.0 [facility] Comment on above: Performed By: #### L 100.0100, L500.2500 #### [facility] [address] [place], [address] Creatinine [Mass/Vol] 0.94 mg/dL Normal 0.70-1.30 [facility] Comment on above: Result Comment: The validity of the calculated GFR GFRAA in patients over 70 years has not been determined. Clinical correlation is essential. Performed By: #### L 100.0100, L500.2500 #### [facility] [address] [place], [address] ECRCL 57.13 ml/min Normal [facility] Comment on above: Performed By: #### L 100.0100, L500.2500 #### [facility] [address] [place], [address] EST GFR - AA 98 mL/min Normal >60 [facility] Comment on above: Result Comment: Afri can Argentine GFR Calc Performed By: #### L 100.0100, L500.2500 #### [facility] [address] [place], [address] GAP 8 Normal 5-15 [facility] Comment on above: Performed By: #### L 100.0100, L500.2500 #### [facility] [address] [place], [address] GFR/1.73 sq M.predicted among non-blacks MDRD (S/P/Bld) [Vol rate/Area] 81 mL/min/{1.73_m2} Normal >60 [facility] Comment on above: Result Comment: Non- GFR Calc Performed By: #### L 100.0100, L500.2500 #### [facility] [address], [address] Glucose [Mass/Vol] 146 mg/dL High 74-106 [facility] Comment on above: Result Comment: Fast ing Glucose result greater than or equal to 126 mg/dL suggests DIABETES MELLITUS per A.D.A. criteria. Performed By: #### L 100.0100, L500.2500 #### [facility] [address] [place], [address] Potassium [Moles/Vol] 3.2 mmol/L Low 3.5-5.1 [facility] Comment on above: Performed By: #### L 100.0100, L500.2500 #### [facility] [address] [place], [address] Sodium [Moles/Vol] 139 mmol/L Normal 136-145 [facility] Comment on above: Performed By: #### L 100.0100, L500.2500 #### [facility] [address] [place], [address] Urea nitrogen [Mass/Vol] 33 mg/dL High 7-18 [facility] Comment on above: Performed By: #### L 100.0100, L500.2500 #### [facility] [address] [place], [address] CBC W/Diff, Automatedon 08-30 Absolute Lymph 0.57 X10 3/uL Low 0.83-4.51 [facility] Comment on above: Performed By: #### L 100.0100, L500.2500 #### [facility] [address] [place], [address] Absolute Neut 15.4 X10 3/uL High 2.0-7.7 [facility] Comment on above: Performed By: #### L 100.0100, L500.2500 #### [facility] [address] [place], [address] Basophils/100 WBC (Bld) 0.1 % Normal 0-1 [facility] Comment on above: Performed By: #### L 100.0100, L500.2500 #### [facility] [address], [address] Eosinophils/100 WBC (Bld) 0.0 % Normal 0-5 [facility] Comment on above: Performed By: #### L 100.0100, L500.2500 #### [facility] [address] [place], [address] Erythrocyte distribution width (RBC) [Ratio] 16.6 % High 11.6-14.6 [facility] Comment on above: Performed By: #### L 100.0100, L500.2500 #### [facility] [address] [place], [address] Hematocrit (Bld) [Volume fraction] 43.3 % Normal 40-54 [facility] Comment on above: Performed By: #### L 100.0100, L500.2500 #### [facility] [address] [place], [address] Hemoglobin (Bld) [Mass/Vol] 14.4 g/dL Normal 13.0-16.5 [facility] Comment on above: Performed By: #### L 100.0100, L500.2500 #### [facility] [address] [place], [address] IG% 0.700 Normal 0.0-0.9 [facility] Comment on above: Result Comment: IG% - Immature Granulocytes (promyelocytes, myelocytes and metamyelocytes) > 1% indicates that a LEFT SHIFT is Present. Performed By: #### L 100.0100, L500.2500 #### [facility] [address] [place], [address] Lymphocytes/100 WBC (Bld) 3.3 % Low 19-41 [facility] Comment on above: Performed By: #### L 100.0100, L500.2500 #### [facility] [address] [place], [address] MCH (RBC) [Entitic mass] 31.4 pg Normal 27.0-32.0 [facility] Comment on above: Performed By: #### L 100.0100, L500.2500 #### [facility] [address] [place], [address] MCHC (RBC) [Mass/Vol] 33.3 g/dL Normal 32-36 [facility] Comment on above: Performed By: #### L 100.0100, L500.2500 #### [facility] [address] [place], [address] MCV (RBC) [Entitic vol] 94.5 fL High 80-94 [facility] Comment on above: Performed By: #### L 100.0100, L500.2500 #### [facility] [address] [place], [address] Monocytes/100 WBC (Bld) 7.2 % Normal 0-10 [facility] Comment on above: Performed By: #### L 100.0100, L500.2500 #### [facility] [address] [place], [address] Neutrophils/100 WBC (Bld) 88.7 % High 47-70 [facility] Comment on above: Performed By: #### L 100.0100, L500.2500 #### [facility] [address] [place], [address] Nucleated RBC (Bld) [#/Vol] 0 10*3/uL Normal 0-5 [facility] Comment on above: Performed By: #### L 100.0100, L500.2500 #### [facility] [address] [place], [address] Platelet mean volume (Bld) [Entitic vol] 11.4 fL Normal 6.2-12.0 [facility] Comment on above: Performed By: #### L 100.0100, L500.2500 #### [facility] [address] [place], [address] Platelets (Bld) [#/Vol] 178 10*3/uL Normal 150-450 [facility] Comment on above: Performed By: #### L 100.0100, L500.2500 #### [facility] [address] [place], [address] RBC (Bld) [#/Vol] 4.58 10*6/uL Low 4.6-6.2 [facility] Comment on above: Performed By: #### L 100.0100, L500.2500 #### [facility] [address] [place], [address] RDW SD 56.1 fl High 35.1-43.9 [facility] Comment on above: Performed By: #### L 100.0100, L500.2500 #### [facility] [address] [place], [address] WBC (Bld) [#/Vol] 17.4 10*3/uL High 4.4-11.0 [facility] Comment on above: Performed By: #### L 100.0100, L500.2500 #### [facility] [address] [place], [address] CNPValeria [facility]-09-2024 [facility] TRUPTICLARK Mega ([id number]) 1935 M Date Time Provider Department 09/09/24 BRIGITTE SEGAL During your visit today, we recorded the following information about you: Brigitte Segal, FINISHER BRUSH.QUALITY CONTROL LAB TECHNICIAN 09/09/2024 10:05 AM Signed Patient was admitted to [facility] on September 07 to 2024 for [...] Date Reviewed: 03/27/2024 Reviewed by: Brigitte Segal APRN.QUALITY CONTROL LAB TECHNICIAN - Fully Assessed Prescriptions as of 09/09/2024 [...] Meds Comments as of 04/18/2021: Taking Saw [place]. Problem List As Of Date 09/09/2024 Noted Resolved BENIGN HYPERTENSION [I10] 01/08/2006 Anxiety state [F41.1] 01/05/2009 GERD (gastroesophageal reflux disease) [K21.9] 01/10/2011 BPH (benign prostatic hyperplasia) [N40.0] 03/17/2013 PAD (peripheral artery disease) ([facility]) [I73.9] 02/28/2014 Hyperlipidemia LDL goal <100 [E78.5] 03/28/2016 Hyperbilirubinemia [E80.6] 05/10/2016 Parkinson's disease (HCC) [G20.A1] 07/11/2017 Angina pectoris ([facility]) [I20.9] 08/25/2019 Restless legs syndrome [G25.81] 01/27/2020 Iron deficiency anemia due to chronic blood los*01/27/2020 Coronary artery disease involving onondaga rabago*12/22/2020 S/P primary angioplasty with coronary stent [Z9*12/22/2020 Fall from standing [W19.XXXA] 09/20/2021 Encounter for support and coordination of trans*08/11/2023 Acute respiratory failure with hypoxia (HCC) [J*09/25/2023 Encounter Status:Closed by BRIGITTE SEGAL on 09/09/24 Normal [facility] Gram stainOrdered By: Lester stein on 09-09-2024 Microscopic observation Gram stain Nom (Unsp spec) [facility] Legionella Antigen Urineon 0 09-09-2024 LEGU URINE, CLEAN CATCH Legionella Antigen result interpretation: L pneumo Ag Ur Ql Negative Presumptive negative for Legionella pneumophila serogroup 1 antigen in urine, suggesting no recent or current infection. Legionella Ag, Urine Negative (See interpretation below) [facility] Comment on above: Performed By: #### L 100.0100, L500.2500 #### [facility] [address] [facility] [place], [place], [id number] Microbial respiratory cultur eOrdered By: Lester Perdomo on 09-09-2024 Microorganism identified Cx Nom (Unsp spec) [facility] Strep pneumoniae Antig(UR,CS F)on 09-09-2024 STPAG URINE INTERPRETATION Strep pneumoniae Antig(UR,CSF) Negative Urine Presumptive negative for pneumococcal pneumonia, suggesting no current or recent pneumococcal infection. Infection due to S pneumoniae cannot be ruled out since the antigen present in the sample may be below the detection limit of the test. Strep pneumo Test Negative URINE (See interpretation below) Normal [facility] Comment on above: Performed By: #### L 100.0100, L500.2500 #### [facility] [address] [facility] [place], [address] Urine Legionella pneumophila antigen detectionOrdered By: Lester Perdomo on 09-09-2024 L. pneumophila Ag Ql (U) [facility] Abdomen Single Viewon 2024 Abdomen Single View [facility] [address] [place], [place] [id number] Abdomen Single View MR#: [id number] Acct: [id number] Name: CLARK LYLES Rep #: [id number] : 1935 M 88 From: Mike Vela DO PCP: MARIANA Humphreys Status: ADM IN Study: Abdomen Single View Date of Exam: 09/08/24 Exam# [id number] Ordering Dr: Lester Perdomo DO PROCEDURE: ABDOMEN [...] pubic ramus bone. Reading Location: [facility] CC: VARNISHING UNIT OPERATOR Brigitte Segal; Dr. Lester Perdomo DO Floor Surfacer: Signed Normal [facility] Basic Metabolic Profile (BMP )on 09-08-2024 BUN/CRE 33.0 RATIO High 10-20 [facility] Comment on above: Performed By: #### L 500.2500, L501.5200, L100.0100, L501.2300 ####[facility] [address] [place], [address] CA,Total 8.6 mg/dL Normal 8.5-10.1 [facility] Comment on above: Performed By: #### L 500.2500, L501.5200, L100.0100, L501.2300 ####[facility] [address] [place], [address] Chloride [Moles/Vol] 106 mmol/L Normal 98-107 [facility] Comment on above: Performed By: #### L 500.2500, L501.5200, L100.0100, L501.2300 ####[facility] [address] [place], [address] CO2 [Moles/Vol] 22.0 mmol/L Normal 21.0-32.0 [facility] Comment on above: Performed By: #### L 500.2500, L501.5200, L100.0100, L501.2300 ####[facility] [address] [place], [address] Creatinine [Mass/Vol] 0.82 mg/dL Normal 0.70-1.30 [facility] Comment on above: Result Comment: The validity of the calculated GFR GFRAA in patients over 70 years has not been determined. Clinical correlation is essential. Performed By: #### L 500.2500, L501.5200, L100.0100, L501.2300 ####[facility] [address] [place], [address] ECRCL 66.59 ml/min Normal [facility] Comment on above: Performed By: #### L 500.2500, L501.5200, L100.0100, L501.2300 ####[facility] [address] [place], [address] EST GFR - AA 115 mL/min Normal >60 [facility] Comment on above: Result Comment: Afri can Argentine GFR Calc Performed By: #### L 500.2500, L501.5200, L100.0100, L501.2300 ####[facility] [address] [place], [address] GAP 11 Normal 5-15 [facility] Comment on above: Performed By: #### L 500.2500, L501.5200, L100.0100, L501.2300 ####[facility] [address] [place], [address] GFR/1.73 sq M.predicted among non-blacks MDRD (S/P/Bld) [Vol rate/Area] 95 mL/min/{1.73_m2} Normal >60 [facility] Comment on above: Result Comment: Non- GFR Calc Performed By: #### L 500.2500, L501.5200, L100.0100, L501.2300 ####[facility] [address] [place], [address] Glucose [Mass/Vol] 150 mg/dL High 74-106 [facility] Comment on above: Result Comment: Fast ing Glucose result greater than or equal to 126 mg/dL suggests DIABETES MELLITUS per A.D.A. criteria. Performed By: #### L 500.2500, L501.5200, L100.0100, L501.2300 ####[facility] [address] [place], [address] Potassium [Moles/Vol] 3.2 mmol/L Low 3.5-5.1 [facility] Comment on above: Performed By: #### L 500.2500, L501.5200, L100.0100, L501.2300 ####[facility] [address] [place], [address] Sodium [Moles/Vol] 138 mmol/L Normal 136-145 [facility] Comment on above: Performed By: #### L 500.2500, L501.5200, L100.0100, L501.2300 ####[facility] [address] [place], [address] Urea nitrogen [Mass/Vol] 27 mg/dL High 7-18 [facility] Comment on above: Performed By: #### L 500.2500, L501.5200, L100.0100, L501.2300 ####[facility] [address] [place], [address] CBC W/Diff, Automatedon 02-1 0-2024 Absolute Lymph 0.32 X10 3/uL Low 0.83-4.51 [facility] Comment on above: Performed By: #### L 500.2500, L501.5200, L100.0100, L501.2300 #### [facility] [address] [place], [address] Absolute Neut 7.4 X10 3/uL Normal 2.0-7.7 [facility] Comment on above: Performed By: #### L 500.2500, L501.5200, L100.0100, L501.2300 #### [facility] [address] [place], [address] Basophils/100 WBC (Bld) 0.1 % Normal 0-1 [facility] Comment on above: Performed By: #### L 500.2500, L501.5200, L100.0100, L501.2300 #### [facility] [address] [place], [address] Eosinophils/100 WBC (Bld) 0.0 % Normal 0-5 [facility] Comment on above: Performed By: #### L 500.2500, L501.5200, L100.0100, L501.2300 #### [facility] [address] [place], [address] Erythrocyte distribution width (RBC) [Ratio] 16.0 % High 11.6-14.6 [facility] Comment on above: Performed By: #### L 500.2500, L501.5200, L100.0100, L501.2300 #### [facility] [address] [place], [address] Hematocrit (Bld) [Volume fraction] 42.9 % Normal 40-54 [facility] Comment on above: Performed By: #### L 500.2500, L501.5200, L100.0100, L501.2300 #### [facility] [address] [place], [address] Hemoglobin (Bld) [Mass/Vol] 15.4 g/dL Normal 13.0-16.5 [facility] Comment on above: Performed By: #### L 500.2500, L501.5200, L100.0100, L501.2300 #### [facility] [address] [place], [address] IG% 0.800 Normal 0.0-0.9 [facility] Comment on above: Result Comment: IG% - Immature Granulocytes (promyelocytes, myelocytes and metamyelocytes) > 1% indicates that a LEFT SHIFT is Present. Performed By: #### L 500.2500, L501.5200, L100.0100, L501.2300 #### [facility] [address] [place], [address] Lymphocytes/100 WBC (Bld) 4.1 % Low 19-41 [facility] Comment on above: Performed By: #### L 500.2500, L501.5200, L100.0100, L501.2300 #### [facility] [address] [place], [address] MCH (RBC) [Entitic mass] 33.1 pg High 27.0-32.0 [facility] Comment on above: Performed By: #### L 500.2500, L501.5200, L100.0100, L501.2300 #### [facility] [address] [place], [address] MCHC (RBC) [Mass/Vol] 35.9 g/dL Normal 32-36 [facility] Comment on above: Performed By: #### L 500.2500, L501.5200, L100.0100, L501.2300 #### [facility] [address] [place], [address] MCV (RBC) [Entitic vol] 92.3 fL Normal 80-94 [facility] Comment on above: Performed By: #### L 500.2500, L501.5200, L100.0100, L501.2300 #### [facility] [address] [place], [address] Monocytes/100 WBC (Bld) 2.0 % Normal 0-10 [facility] Comment on above: Performed By: #### L 500.2500, L501.5200, L100.0100, L501.2300 #### [facility] [address] [place], [address] Neutrophils/100 WBC (Bld) 93.0 % High 47-70 [facility] Comment on above: Performed By: #### L 500.2500, L501.5200, L100.0100, L501.2300 #### [facility] [address] [place], [address] Nucleated RBC (Bld) [#/Vol] 0 10*3/uL Normal 0-5 [facility] Comment on above: Performed By: #### L 500.2500, L501.5200, L100.0100, L501.2300 #### [facility] [address] [place], [address] Platelet mean volume (Bld) [Entitic vol] 11.6 fL Normal 6.2-12.0 [facility] Comment on above: Performed By: #### L 500.2500, L501.5200, L100.0100, L501.2300 #### [facility] [address] [place], [address] Platelets (Bld) [#/Vol] 183 10*3/uL Normal 150-450 [facility] Comment on above: Performed By: #### L 500.2500, L501.5200, L100.0100, L501.2300 #### [facility] [address] [place], [address] RBC (Bld) [#/Vol] 4.65 10*6/uL Normal 4.6-6.2 [facility] Comment on above: Performed By: #### L 500.2500, L501.5200, L100.0100, L501.2300 #### [facility] [address] [place], [address] RDW SD 52.6 fl High 35.1-43.9 [facility] Comment on above: Performed By: #### L 500.2500, L501.5200, L100.0100, L501.2300 #### [facility] [address] [place], [address] WBC (Bld) [#/Vol] 7.9 10*3/uL Normal 4.4-11.0 [facility] Comment on above: Performed By: #### L 500.2500, L501.5200, L100.0100, L501.2300 #### [facility] [address] [place], [address] CTA Chest W/WO Contraston CTA Chest W/WO Contrast [facility] Imaging Services [address] [place] [address] CTA Chest W/WO Contrast MR#: [id number] Acct: [id number] Name: CLARK LYLES Rep #: [id number] : 1935 M 88 From: Jose araujo MD PCP: Brigitte Segal, VARNISHING UNIT OPERATOR Status: ADM IN Study: CTA Chest W/WO Contrast Date of Exam: 09/08/24 Exam# [id number] Ordering Dr: Lester Perdomo DO PROCEDURE: CTA [...] use of iterative reconstruction technique). Reading Location: [place] [address] CC: VARNISHING UNIT OPERATOR Brigitte Segal; Dr. Lester Perdomo DO Floor Surfacer: Signed Normal [facility] Echo, Limited Studyon 2024 Echo, Limited Study [facility] Cardi[facility] Services [address] [place] [address] Echo, Limited Study 09/08/24 1446 MR#: [id number] Acct: [id number] Name: CLARK LYLES Rep #: [id number] : 1935 88 From: Dejuan Brooks MD Attending Dr: Dr. Lester Perdomo DO Status: ADM IN Ordering Dr: Lester Perdomo DO Date: 09/08/24 Location: [facility] Sex: M C Admitted: 09/07/24 Reason For [...] RCS 09/09/24833 Date Dejuan Brooks MD CC: VARNISHING UNIT OPERATOR Brigitte Segal; Dr. Lester Perdomo, Date Dictated: 09/08/24 1446 Date Transcribed: 09/09/24833 Floor Surfacer: Signed Normal [facility] Magnesiumon 09-08-2024 Magnesium [Mass/Vol] 1.8 mg/dL Normal 1.6-2.6 [facility] Comment on above: Performed By: #### L 500.2500, L501.5200, L100.0100, L501.2300 ####[facility] [address] [facility] [place], [address] Magnesium measurementOrdered By: Jerrell Faith on 09-08-2024 Magnesium [Mass/Vol] 1.8 mg/dL 1.6-2.6 [facility] Phosphoruson 09-08-2024 Phosphate [Mass/Vol] 3.9 mg/dL Normal 2.5-4.9 [facility] Comment on above: Performed By: #### L 500.2500, L501.5200, L100.0100, L501.2300 ####[facility] [address] [facility] [place], [address] 12 Lead EKGon 09-07-2024 12 Lead EKG [facility] Cardiovascular Services [address] [place] [address] 12 Lead EKG 09/07/24 1105 MR#: [id number] Acct: [id number] Name: CLARK LYLES Rep #: [id number] : 1935 88 From: Dejuan Brooks MD Attending Dr: Dr. Lester Perdomo DO Status: ADM IN Ordering Dr: Neo Tejeda DO Date: 09/07/24 Location: [facility] Sex: M C Admitted: 09/07/24 Test Reason [...] normal ECG Confirmed by TODD MANUEL, DEJUAN ([id number]), film editor FARSHAD PANDYA ([id number]) on 09/08/2024 11:07:09 AM Referred By: Confirmed By: DEJUAN BROOKS MD 09/08/24 110 Date Dejuan Brooks MD CC: MARIANA Segal; Dr. Lester Perdomo DO; Dr. Neo Tejeda DO Signed Normal [facility] Activated partial thrombopla stin time (aPTT) in platelet poor plasma by coagulation aOrdered By: Neo Tejeda on 09-07-2024 aPTT Coag (PPP) [Time] 26.5 s 24.1-36.2 [facility] Assessment of wrist artery p atency prior to arterial punctureOrdered By: Neo Tejeda on 09-07-2024 Arterial patency Wrist artery --pre arterial puncture Positive [facility] BNP (brain natriuretic pepti de measurement)Ordered By: Neo Tejeda on 09-07-2024 Natriuretic peptide B (Bld) [Mass/Vol] 221.1 pg/mL High 0-100 [facility] BNP,B-Type NATRIURETIC PEPTI Giovanni 09-07-2024 Natriuretic peptide B (Bld) [Mass/Vol] 221.1 pg/mL High 0-100 [facility] Comment on above: Performed By: #### L 503.6620 ####[facility] [address] [place], [address] Basic Metabolic Profile (BMP )on 09-07-2024 BUN/CRE 19.2 RATIO Normal 10-20 [facility] Comment on above: Order Comment: 'TROP ' Serial specimen #1, #2 or #3: 1 Performed By: #### L 500.2500, L501.4020, L100.0100, L300.3900, L300.4310 ####[facility] [address] [place], [address] CA,Total 8.7 mg/dL Normal 8.5-10.1 [facility] Comment on above: Order Comment: 'TROP ' Serial specimen #1, #2 or #3: 1 Performed By: #### L 500.2500, L501.4020, L100.0100, L300.3900, L300.4310 ####[facility] [address] [place], [address] Chloride [Moles/Vol] 104 mmol/L Normal 98-107 [facility] Comment on above: Order Comment: 'TROP ' Serial specimen #1, #2 or #3: 1 Performed By: #### L 500.2500, L501.4020, L100.0100, L300.3900, L300.4310 ####[facility] [address] [place], [address] CO2 [Moles/Vol] 18.0 mmol/L Low 21.0-32.0 [facility] Comment on above: Order Comment: 'TROP ' Serial specimen #1, #2 or #3: 1 Performed By: #### L 500.2500, L501.4020, L100.0100, L300.3900, L300.4310 ####[facility] [address] [place], [address] Creatinine [Mass/Vol] 1.04 mg/dL Normal 0.70-1.30 [facility] Comment on above: Order Comment: 'TROP ' Serial specimen #1, #2 or #3: 1 Result Comment: The validity of the calculated GFR GFRAA in patients over 70 years has not been determined. Clinical correlation is essential. Performed By: #### L 500.2500, L501.4020, L100.0100, L300.3900, L300.4310 ####[facility] [address] [place], [address] ECRCL 49.04 ml/min Normal [facility] Comment on above: Order Comment: 'TROP ' Serial specimen #1, #2 or #3: 1 Performed By: #### L 500.2500, L501.4020, L100.0100, L300.3900, L300.4310 ####[facility] [address] [place], [address] EST GFR - AA 87 mL/min Normal >60 [facility] Comment on above: Order Comment: 'TROP ' Serial specimen #1, #2 or #3: 1 Result Comment: Afri can [place] GFR Calc Performed By: #### L 500.2500, L501.4020, L100.0100, L300.3900, L300.4310 ####[facility] [address] [place], [address] GAP 16 High 5-15 [facility] Comment on above: Order Comment: 'TROP ' Serial specimen #1, #2 or #3: 1 Performed By: #### L 500.2500, L501.4020, L100.0100, L300.3900, L300.4310 ####[facility] [address] [place], [address] GFR/1.73 sq M.predicted among non-blacks MDRD (S/P/Bld) [Vol rate/Area] 72 mL/min/{1.73_m2} Normal >60 [facility] Comment on above: Order Comment: 'TROP ' Serial specimen #1, #2 or #3: 1 Result Comment: Non- GFR Calc Performed By: #### L 500.2500, L501.4020, L100.0100, L300.3900, L300.4310 ####[facility] [address] [place], [address] Glucose [Mass/Vol] 77 mg/dL Normal 74-106 [facility] Comment on above: Order Comment: 'TROP ' Serial specimen #1, #2 or #3: 1 Performed By: #### L 500.2500, L501.4020, L100.0100, L300.3900, L300.4310 ####[facility] [address] [place], [address] Potassium [Moles/Vol] 3.3 mmol/L Low 3.5-5.1 [facility] Comment on above: Order Comment: 'TROP ' Serial specimen #1, #2 or #3: 1 Performed By: #### L 500.2500, L501.4020, L100.0100, L300.3900, L300.4310 ####[facility] [address] [place], [address] Sodium [Moles/Vol] 138 mmol/L Normal 136-145 [facility] Comment on above: Order Comment: 'TROP ' Serial specimen #1, #2 or #3: 1 Performed By: #### L 500.2500, L501.4020, L100.0100, L300.3900, L300.4310 ####[facility] [address] [place], [address] Urea nitrogen [Mass/Vol] 20 mg/dL High 7-18 [facility] Comment on above: Order Comment: 'TROP ' Serial specimen #1, #2 or #3: 1 Performed By: #### L 500.2500, L501.4020, L100.0100, L300.3900, L300.4310 ####[facility] [address] [place], [address] Bilirubin Test strip Ql (U)O rdered By: Neo Tejeda on 09-07-2024 Bilirubin Ql (U) Negative Negative [facility] Blood Gases by CPSon 025 MAGUI TEST Positive Normal [facility] Comment on above: Performed By: #### L 100.0100, L500.2500 #### [facility] [address] [place], [address] Base excess Calc (Bld) [Moles/Vol] -8 mmol/L Low -2 to +2 [facility] Comment on above: Performed By: #### L 100.0100, L500.2500 #### [facility] [address] [place], [address] Blood Gas Type ART Normal [facility] Comment on above: Performed By: #### L 100.0100, L500.2500 #### [facility] [address] [place], [address] CO2 [Moles/Vol] 18 mmol/L Normal [facility] Comment on above: Performed By: #### L 100.0100, L500.2500 #### [facility] [address] [place], [address] Comment AIRVO 60L Normal [facility] Comment on above: Performed By: #### L 100.0100, L500.2500 #### [facility] [address] [place], [address] FI02 50.0 Normal [facility] Comment on above: Performed By: #### L 100.0100, L500.2500 #### [facility] [address] [place], [address] HCO3 (Bld) [Moles/Vol] 17.0 mmol/L Low 22-26 [facility] Comment on above: Performed By: #### L 100.0100, L500.2500 #### [facility] [address] [place], [address] Mode Not entered Normal [facility] Comment on above: Performed By: #### L 100.0100, L500.2500 #### [facility] [address] [place], [address] O2 Delivery Dev HFNC Normal [facility] Comment on above: Performed By: #### L 100.0100, L500.2500 #### [facility] [address] [place], [address] pCO2 28.6 mmHg Low 35-45 [facility] Comment on above: Performed By: #### L 100.0100, L500.2500 #### [facility] [address] [place], [address] pH (Bld) 7.38 [pH] Normal 7.35-7.45 [facility] Comment on above: Performed By: #### L 100.0100, L500.2500 #### [facility] [address] [place], [address] PO2 102 mmHG High 75-100 [facility] Comment on above: Performed By: #### L 100.0100, L500.2500 #### [facility] [address] [place], [address] SITE R Radial Normal [facility] Comment on above: Performed By: #### L 100.0100, L500.2500 #### [facility] [address] [place], [address] SO2 98 Normal 95-99 [facility] Comment on above: Performed By: #### L 100.0100, L500.2500 #### [facility] [address] [place], [address] Blood base excess determinat ionOrdered By: Neo Tejeda on 09-07-2024 Base excess Calc (BldV) [Moles/Vol] -8 mmol/L Low -2-2 [facility] Blood bicarbonate measuremen tOrdered By: Neo Tejeda on 09-07-2024 HCO3 (Bld) [Moles/Vol] 17.0 mmol/L Low 22-26 [facility] CBC W/Diff, Automatedon Absolute Lymph 0.74 X10 3/uL Low 0.83-4.51 [facility] Comment on above: Performed By: #### L 500.2500, L501.4020, L100.0100, L300.3900, L300.4310 ####[facility] [address] [place], [address] Absolute Neut 10.8 X10 3/uL High 2.0-7.7 [facility] Comment on above: Performed By: #### L 500.2500, L501.4020, L100.0100, L300.3900, L300.4310 ####[facility] [address] [place], [address] Basophils/100 WBC (Bld) 0.3 % Normal 0-1 [facility] Comment on above: Performed By: #### L 500.2500, L501.4020, L100.0100, L300.3900, L300.4310 ####[facility] [address] [place], [address] Eosinophils/100 WBC (Bld) 0.1 % Normal 0-5 [facility] Comment on above: Performed By: #### L 500.2500, L501.4020, L100.0100, L300.3900, L300.4310 ####[facility] [address] [place], [address] Erythrocyte distribution width (RBC) [Ratio] 16.4 % High 11.6-14.6 [facility] Comment on above: Performed By: #### L 500.2500, L501.4020, L100.0100, L300.3900, L300.4310 ####[facility] [address] [place], [address] Hematocrit (Bld) [Volume fraction] 46.6 % Normal 40-54 [facility] Comment on above: Performed By: #### L 500.2500, L501.4020, L100.0100, L300.3900, L300.4310 ####[facility] [address] [place], [address] Hemoglobin (Bld) [Mass/Vol] 15.8 g/dL Normal 13.0-16.5 [facility] Comment on above: Performed By: #### L 500.2500, L501.4020, L100.0100, L300.3900, L300.4310 ####[facility] [address] [place], [address] IG% 1.200 High 0.0-0.9 [facility] Comment on above: Result Comment: IG% - Immature Granulocytes (promyelocytes, myelocytes and metamyelocytes) > 1% indicates that a LEFT SHIFT is Present. Performed By: #### L 500.2500, L501.4020, L100.0100, L300.3900, L300.4310 ####[facility] [address] [place], [address] Lymphocytes/100 WBC (Bld) 5.8 % Low 19-41 [facility] Comment on above: Performed By: #### L 500.2500, L501.4020, L100.0100, L300.3900, L300.4310 ####[facility] [address] [place], [address] MCH (RBC) [Entitic mass] 31.5 pg Normal 27.0-32.0 [facility] Comment on above: Performed By: #### L 500.2500, L501.4020, L100.0100, L300.3900, L300.4310 ####[facility] [address] [place], [address] MCHC (RBC) [Mass/Vol] 33.9 g/dL Normal 32-36 [facility] Comment on above: Performed By: #### L 500.2500, L501.4020, L100.0100, L300.3900, L300.4310 ####[facility] [address] [place], [address] MCV (RBC) [Entitic vol] 93.0 fL Normal 80-94 [facility] Comment on above: Performed By: #### L 500.2500, L501.4020, L100.0100, L300.3900, L300.4310 ####[facility] [address] [place], [address] Monocytes/100 WBC (Bld) 7.4 % Normal 0-10 [facility] Comment on above: Performed By: #### L 500.2500, L501.4020, L100.0100, L300.3900, L300.4310 ####[facility] [address] [place], [address] Neutrophils/100 WBC (Bld) 85.2 % High 47-70 [facility] Comment on above: Performed By: #### L 500.2500, L501.4020, L100.0100, L300.3900, L300.4310 ####[facility] [address] [place], [address] Nucleated RBC (Bld) [#/Vol] 0 10*3/uL Normal 0-5 [facility] Comment on above: Performed By: #### L 500.2500, L501.4020, L100.0100, L300.3900, L300.4310 ####[facility] [address] [place], [address] Platelet mean volume (Bld) [Entitic vol] 11.0 fL Normal 6.2-12.0 [facility] Comment on above: Performed By: #### L 500.2500, L501.4020, L100.0100, L300.3900, L300.4310 ####[facility] [address] [place], [address] Platelets (Bld) [#/Vol] 195 10*3/uL Normal 150-450 [facility] Comment on above: Performed By: #### L 500.2500, L501.4020, L100.0100, L300.3900, L300.4310 ####[facility] [address] [place], [address] RBC (Bld) [#/Vol] 5.01 10*6/uL Normal 4.6-6.2 [facility] Comment on above: Performed By: #### L 500.2500, L501.4020, L100.0100, L300.3900, L300.4310 ####[facility] [address] [place], [address] RDW SD 53.0 fl High 35.1-43.9 [facility] Comment on above: Performed By: #### L 500.2500, L501.4020, L100.0100, L300.3900, L300.4310 ####[facility] [address] [place], [address] WBC (Bld) [#/Vol] 12.7 10*3/uL High 4.4-11.0 [facility] Comment on above: Performed By: #### L 500.2500, L501.4020, L100.0100, L300.3900, L300.4310 ####[facility] [address] [place], [address] CTA Head AND Neck W/ Contras ton 09-07-2024 CTA Head AND Neck W/ Contrast [facility] Imaging Services [address] [place] [address] CTA Head AND Neck W/ Contrast MR#: [id number] Acct: [id number] Name: CLARK LYLES Rep #: [id number] : 1935 M 88 From: Axel Marie MD PCP: Brigitte Segal, VARNISHING UNIT OPERATOR Status: REG ER Study: CTA Head AND Neck W/ Contrast Date of Exam: Exam# [id number] Ordering Dr: Neo Tejeda DO PROCEDURE: CTA [...] use of iterative reconstruction technique). [facility] CC: VARNISHING UNIT OPERATOR Brigitte Segal; Dr. Neo Tejeda DO Floor Surfacer: Signed Normal [facility] Calcium oxalate crystals det ection in urine sediment by light microscopyOrdered By: Neo Tejeda on 09-07-2024 Calcium oxalate crystals LM Ql (Urine sed) 1+ /hpf [facility] Chest 1 Viewon 09-07-2024 Chest 1 View [facility] Imaging Services [address] [place] [address] Chest 1 View MR#: [id number] Acct: [id number] Name: CLARK LYLES Rep #: [id number] : 1935 M 88 From: Axel Marie MD PCP: MARIANA Humphreys Status: REG ER Study: Chest 1 View Date of Exam: 09/07/24 Exam# [id number] Ordering Dr: Neo Tejeda DO PROCEDURE: CHEST 1 VIEW REASON FOR EXAM: Cough TECHNIQUE: Frontal view of the chest. COMPARISON: Reviewed. FINDINGS: The cardiac and mediastinal contours are normal. The lungs are clear. RAD/Chest 1 View IMPRESSION: No acute radiographic process. Reading Location: [facility] CC: VARNISHING UNIT OPERATOR Brigitte Segal; Dr. Neo Tejeda DO Floor Surfacer: Signed Normal [facility] D-Dimer Quantitative (DVT/PE )on 09-07-2024 D-DIMER QUANT 1.63 FEU/ug/m Invalid Interpretation Code 0.27-0.49 [facility] Comment on above: Result Comment: D-Di marv ELEVATED (>0.49): Additional studies and clinical assessments are indicated to conclude diagnosis of: Deep Vein Thrombosis (DVT) or Pulmonary Embolism (PE) CRITICAL VALUE CALLED TO NIKOLAS HILL 09/07/24 Abdiel Lizarraga. RESULTS READ BACK BY SAME. Performed By: #### L 100.0100, L500.2500 #### [facility] [address] [place], [address] Elbow min 3 Viewson 09-07-19 25 Elbow min 3 Views [facility] Imaging Services [address] [place] [address] Elbow min 3 Views MR#: [id number] Acct: [id number] Name: CLARK LYLES Rep #: [id number] : 1935 M 88 From: Axel Marie MD PCP: MARIANA Humphreys Status: REG ER Study: Elbow min 3 Views Date of Exam: 09/07/24 Exam# [id number] Ordering Dr: Neo Tejeda DO PROCEDURE: ELBOW [...] No other acute radiographic process. Reading Location: [facility] CC: VARNISHING UNIT OPERATOR Brigitte Segal; Dr. Neo Tejeda DO Floor Surfacer: Signed Normal [facility] Elbow min 3 Views [facility] Imaging Services [address] [place], [place] [address] Elbow min 3 Views MR#: [id number] Acct: [id number] Name: CLARK LYLES Rep #: [id number] : 1935 M 88 From: Axel Marie MD PCP: MARIANA Humphreys Status: REG ER Study: Elbow min 3 Views Date of Exam: 09/07/24 Exam# [id number] Ordering Dr: Neo Tejeda DO PROCEDURE: ELBOW [...] No other acute radiographic process. Reading Location: [facility] CC: MARIANA Segal; Dr. Neo Tejeda DO Floor Surfacer: Signed Normal [facility] Emergency Department Summary on 09-07-2024 Emergency Department Summary [facility] Medical Records Department [address] [place] [address] Emergency Department Summary 09/07/24 MR#: [id number] Acct: [id number] Name: CLARK LYLES Rep #: [id number] : 1935 88 From: Neo Tejeda DO PCP: Brigitte Segal, VARNISHING UNIT OPERATOR Status:ADM IN Location: [place] [address] HPI History of Present Illness Chief Complaint: Stroke Alert [facility] Medical History (Updated 09/07/24 @ 13:[address] 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 Normal [facility] H AND P Exam - Hospitaliston 09-07-2024 H&P Exam - Hospitalist [facility] Medical Records Department [address] [place] [address] H P Exam - Hospitalist 09/07/24 1317 MR#: [id number] Acct: [id number] Name: CLARK LYLES Rep #: [id number] : 1935 88 From: Jerrell Faith MD PCP: Brigitte Segal, VARNISHING UNIT OPERATOR Status:ADM IN Location: [place] [address] HPI - General General Date of Admission: [...] admitted to monitored bed for further management [facility] Medical History (Updated 09/07/24 @ 13:[address] Jerrell Faith MD) COVID-19 virus detected (08/23/20) Anxiety and depression Chronic anemia Acute respiratory failure with hypoxia Hypoxia Pneumonia due to COVID-19 virus GI bleed (12/2019) Atherosclerosis of coronary artery of [place] heart without angina pectoris Peripheral vascular occlusive [...] 10:23 02/ (more content not included)... Normal [facility] [facility] Hyaline casts LM.LPF (Urine sed) [#/Area]Ordered By: Neo Tejeda on 09-07-2024 Hyaline casts (Urine sed) [#/Area] 0 /[LPF] 0-5 [facility] Influenza virus A and B and SARS-CoV-2 (COVID-19) and Respiratory syncytial virus RNAOrdered By: Neo Tejeda on 09-07-2024 SARS-CoV-2 (COVID-19) RNA CAMERON+probe Ql (Unsp spec) [facility] International normalized rat io (INR) calculationOrdered By: Neo Tejeda on 09-07-2024 INR Coag (Bld) [Relative time] 1.0 {INR} [facility] Ketones Test strip Ql (U)Ord ered By: Neo Tejeda on 09-07-2024 Ketones Ql (U) 5 mg/dl High Negative [facility] L501.4020on 09-07-2024 TROPONIN-I HS 68 pg/mL Normal 3.0-78.0 [facility] Comment on above: Order Comment: Comme nts: SPECIMEN #3'TROP' Serial specimen #1, #2 or #3: 3 Result Comment: Plea se Note: New Test Units and Gender Specific Reference Ranges. For more information see Policy Stat Procedure [place] High Sensitivity Troponin (TNIH) and attachments. Performed By: #### L 100.0100, L500.2500 #### [facility] [address] [place], [address] TROPONIN-I HS 76 pg/mL Normal 3.0-78.0 [facility] Comment on above: Order Comment: Comme nts: SPECIMEN #2'TROP' Serial specimen #1, #2 or #3: 2 Result Comment: Plea se Note: New Test Units and Gender Specific Reference Ranges. For more information see Policy Stat Procedure [place] High Sensitivity Troponin (TNIH) and attachments. Performed By: #### L 100.0100, L500.2500 #### [facility] [address] [place], [address] TROPONIN-I HS 63 pg/mL Normal 3.0-78.0 [facility] Comment on above: Order Comment: 'TROP ' Serial specimen #1, #2 or #3: 1 Result Comment: Plea se Note: New Test Units and Gender Specific Reference Ranges. For more information see Policy Stat Procedure [place] High Sensitivity Troponin (TNIH) and attachments. Performed By: #### L 500.2500, L501.4020, L100.0100, L300.3900, L300.4310 ####[facility] [address] [place], [address] M100.678on 09-07-2024 M100.678 Pending SARS-CoV-2 (COVID 19) Negative INFLUENZA A Negative INFLUENZA B Negative RSV PCR Negative Normal [facility] Comment on above: Performed By: #### L 100.0100, L500.2500 #### [facility] [address] [place], [place], [id number] Measurement, pHOrdered By: Hugo Tejeda on 09-07-2024 pH (Unsp spec) 7.38 [pH] 7.35-7.45 [facility] Microscopic analysis of urin e for red blood cells (RBC)Ordered By: Neo Tejeda on 09-07-2024 Microscopic analysis of urine for red blood cells (RBC) 0-5 SEEN /hpf 0-5 [facility] Mucus LM Ql (Urine sed)Order ed By: Neo Tejeda on 09-07-2024 Mucus Ql (Urine sed) 1+ /hpf [facility] Nitrite Test strip Ql (U)Ord ered By: Neo Tejeda on 09-07-2024 Nitrite Ql (U) Negative Negative [facility] No Panel InformationOrdered By: Neo Tejeda on 09-07-2024 Blood Gas Clinical Comments AIRVO 60L [facility] Blood Gas Sample Site R Radial [facility] Blood Gas Specimen Type ART [facility] Blood Gas Vent Mode Not entered [facility] Oxygen Delivery Device HFNC [facility] Partial Thromboplast Timeon 09-07-2024 aPTT Coag (Bld) [Time] 26.5 s Normal 24.1-36.2 [facility] Comment on above: Performed By: #### L 500.2500, L501.4020, L100.0100, L300.3900, L300.4310 ####[facility] [address] [place], [place], [id number] Protein Test strip Ql (U)Ord ered By: Neo Tejeda on 09-07-2024 Protein Ql (U) 30 mg/dl High Negative [facility] Prothrombin Time w/INRon INR Coag (PPP) [Relative time] 1.0 {INR} Normal [facility] Comment on above: Performed By: #### L 500.2500, L501.4020, L100.0100, L300.3900, L300.4310 ####[facility] [address] [place], [address] PT Coag (PPP) [Time] 13.6 s Normal 11.7-14.9 [facility] Comment on above: Performed By: #### L 500.2500, L501.4020, L100.0100, L300.3900, L300.4310 ####[facility] [address] [place], [address] Prothrombin timeOrdered By: Neo Tejeda on 09-07-2024 PT Coag (PPP) [Time] 13.6 s 11.7-14.9 [facility] RESPIRATORY PANEL MOLECULARo n 09-07-2024 RP PANEL [...] Not Detected RSV B Not Detected Normal [facility] Comment on above: Performed By: #### L 100.0100, L500.2500 #### [facility] [address] [facility] [place], [address] Respiratory pathogens detect ion panel by molecular detection methodOrdered By: Jerrell Faith on 09-07-2024 Respiratory pathogens DNA and RNA panel CAMERON+probe (Resp) [facility] STROKE Brain/Head without Co nton 09-07-2024 STROKE Brain/Head without Cont [facility] Imaging Services [address] [place] [address] STROKE Brain/Head without Cont MR#: [id number] Acct: [id number] Name: CLARK LYLES Rep #: [id number] : 1935 M 88 From: Axel Marie MD PCP: CHRISTINE Brown Status: REG ER Study: STROKE Brain/Head without Cont Date of Exam: 0 09/07/24 Exam# [id number] Ordering Dr: Neo Tejeda DO EXAM: STROKE [...] the time of this dictation Reading Location: [facility] CC: Dr. Neo Tejeda DO; CHRISTINE Brown Floor Surfacer: Signed Normal [facility] Squamous epithelial cells de tection in urine sediment by light microscopyOrdered By: Neo Tejeda on 09-07-2024 Epithelial cells.squamous LM Ql (Urine sed) 0-5 SEEN /hpf 0-5 [facility] Total carbon dioxide measure mentOrdered By: Neo Tejeda on 09-07-2024 CO2 [Moles/Vol] 18 mmol/L [facility] Troponin IOrdered By: Jerrell Faith on 09-07-2024 Troponin I 68 pg/mL 3.0-78.0 [facility] Comment on above: Please Note: [place] t Units and Gender Specific Reference Ranges. For more information see Policy Stat Procedure [place] High Sensitivity Troponin (TNIH) and attachments. Urinalysis, Completeon 09-07 CA OX CRYSTAL 1+ /hpf Normal [facility] Comment on above: Order Comment: COLLE CTOR TO SPECIFY Performed By: #### L 100.0100, L500.2500 #### [facility] [address] [place], [address] BACTERIA RARE Normal None Seen [facility] Comment on above: Order Comment: COLLE CTOR TO SPECIFY Performed By: #### L 100.0100, L500.2500 #### [facility] [address] [place], [address] CAST,HYALINE 0-5 SEEN Normal 0-5 [facility] Comment on above: Order Comment: COLLE CTOR TO SPECIFY Performed By: #### L 100.0100, L500.2500 #### [facility] [address] [place], [address] EPI,SQUAMOUS 0-5 SEEN Normal 0-5 [facility] Comment on above: Order Comment: COLLE CTOR TO SPECIFY Performed By: #### L 100.0100, L500.2500 #### [facility] [address] [place], [address] Mucus Ql (Urine sed) 1+ /hpf Normal [facility] Comment on above: Order Comment: COLLE CTOR TO SPECIFY Performed By: #### L 100.0100, L500.2500 #### [facility] [address] [place], [address] RBC 0-5 SEEN Normal 0-5 [facility] Comment on above: Order Comment: COLLE CTOR TO SPECIFY Performed By: #### L 100.0100, L500.2500 #### [facility] [address] [place], [address] WBC 0-5 SEEN Normal 0-5 [facility] Comment on above: Order Comment: COLLE CTOR TO SPECIFY Performed By: #### L 100.0100, L500.2500 #### [facility] [address] [place], [address] Urine clarityOrdered By: Ninoska Tejeda on 09-07-2024 Clarity (U) Clear Clear [facility] Urine color determinationOrd ered By: Neo Tejeda on 09-07-2024 Color (U) Yellow Yellow [facility] Urine glucose detectionOrder ed By: Neo Tejeda on 09-07-2024 Glucose Ql (U) Normal mg/dl Normal [facility] Urine leukocyte esterase det ection by dipstickOrdered By: Neo Tejeda on 09-07-2024 Leukocyte esterase Test strip Ql (U) Negative Negative [facility] Urine pHOrdered By: Neo escobedo on 09-07-2024 pH (U) 6.0 [pH] 5.0 - 8.0 [facility] Urine sediment bacteria coun t by microscopy (number/high power field)Ordered By: Neo Tejeda on 09-07-2024 Bacteria LM.HPF (Urine sed) [#/Area] RARE /hpf None Seen [facility] Urine specific gravity measu rementOrdered By: Neo Tejeda on 09-07-2024 Specific gravity (U) [Rel density] 1.010 1.002-1.03 0 [facility] Urine urobilinogen measureme ntOrdered By: Neo Tejeda on 09-07-2024 Urobilinogen Ql (U) Normal mg/dl Normal [facility] White blood cell countOrdere d By: Neo Tejeda on 09-07-2024 White blood cell count 0-5 SEEN /hpf 0-5 [facility] CNOVon 03-27-2024 CNOV Office Visit (FAMPWS ) CLARK LYLES ([id number]) 1935 M Date Time Provider Department 03/27/24 8:00 AM BRIGITTE SEGAL During your visit today, we recorded the following information about you: Pulse Respiration Blood pressure Weight 63/minute 16/minute 126/67 68.9 kg Brigitte Segal APRN.QUALITY CONTROL LAB TECHNICIAN 03/27/2024 8:28 AM Addendum This is a [...] lipoma performed by Dr. Robe Mackenzie at [facility] 03-18-14: REVSC OPN/PRQ FEM/POP W/STNT/ANGIOP SM VSL [...] METOPROLOL SUCCINATE (more content not included)... Normal [facility] CLARK LYLES ([id number]) 1935 M Date Time Provider Department 02/26/24 BRIGITTE SEGAL [facility] During your visit today, we recorded the [...] Date Reviewed: 02/25/2024 Reviewed by: Brigitte Segal APRN.QUALITY CONTROL LAB TECHNICIAN - Fully Assessed Prescriptions as of 02/26/2024 [...] Meds Comments as of 04/18/2021: Taking Saw [place]. Problem List As Of Date 02/26/2024 Noted [...] chronic blood los*01/27/2020 Coronary artery disease involving on[place] rabago*12/22/2020 S/P primary angioplasty with coronary stent [Z9*12/22/2020 Fall from standing [W19.XXXA] 09/20/2021 Encounter for support and coordination of trans*08/11/2023 Acute respiratory failure with hypoxia (HCC) [J*09/25/2023 Encounter Status:Closed by SHIRLEY RIVERA on 02/26/24 Normal [facility] Amylase SerPl-cCncon 024 Amylase [Catalytic activity/Vol] 52 U/L Normal 30-104 [facility] Comment on above: Order Comment: Speci men Type: BLOOD SPECIMENOrdering Facility: [facility] Address: [address] [place] [address] Performed By: #### 3 040-3, 1798-8, 31069-0 ####[facility] LABCLIA [id number] [place] [address] [place] CBC W Auto Differential pane l (Bld)on 02-25-2024 Basophils (Bld) [#/Vol] 0.04 10*3/uL Normal <0.11 [facility] Comment on above: Order Comment: Speci men Type: BLOOD SPECIMENOrdering Facility: [facility] Address: [address] [place] [address] Performed By: #### 5 7021-8 ####[facility] LABCLIA [id number] [place] [address] [place] Basophils/100 WBC (Bld) 0.4 % Normal [facility] Comment on above: Order Comment: Speci men Type: BLOOD SPECIMENOrdering Facility: [facility] Address: [address] [place] [address] Performed By: #### 5 7021-8 ####[facility] LABCLIA [id number] [place] [address] [place] Differential cell count method Nom (Bld) Auto Normal [facility] Comment on above: Order Comment: Speci men Type: BLOOD SPECIMENOrdering Facility: [facility] Address: [address] [place] [address] Performed By: #### 5 7021-8 ####[facility] LABCLIA [id number] [place] [address] [place] Eosinophils (Bld) [#/Vol] 0.31 10*3/uL Normal <0.46 [facility] Comment on above: Order Comment: Speci men Type: BLOOD SPECIMENOrdering Facility: [facility] Address: [address] [place] [address] Performed By: #### 5 7021-8 ####[facility] LABCLIA [id number] [place] [address] [place] Eosinophils/100 WBC (Bld) 2.9 % Normal [facility] Comment on above: Order Comment: Speci men Type: BLOOD SPECIMENOrdering Facility: [facility] Address: [address] [place] [address] Performed By: #### 5 7021-8 ####[facility] LABCLIA [id number] [place] [address] [place] Erythrocyte distribution width (RBC) [Ratio] 14.8 % Normal 11.5-15.0 [facility] Comment on above: Order Comment: Speci men Type: BLOOD SPECIMENOrdering Facility: [facility] Address: [address] [place] [address] Performed By: #### 5 7021-8 ####[facility] LABCLIA [id number] [place] [address] [place] Hematocrit (Bld) [Volume fraction] 50.9 % Normal 39.0-51.0 [facility] Comment on above: Order Comment: Speci men Type: BLOOD SPECIMENOrdering Facility: [facility] Address: [address] [place] [address] Performed By: #### 5 7021-8 ####[facility] LABCLIA [id number] [place] [address] [place] Hemoglobin (Bld) [Mass/Vol] 16.4 g/dL Normal 13.0-17.0 [facility] Comment on above: Order Comment: Speci men Type: BLOOD SPECIMENOrdering Facility: [facility] Address: [address] [place] [address] Performed By: #### 5 7021-8 ####[facility] LABCLIA [id number] [place] [address] [place] Immature granulocytes (Bld) [#/Vol] 0.08 10*3/uL Normal <0.10 [facility] Comment on above: Order Comment: Speci men Type: BLOOD SPECIMENOrdering Facility: [facility] Address: [address] [place] [address] Performed By: #### 5 7021-8 ####[facility] LABIA [id number] [place] [address] [place] Immature granulocytes/100 WBC (Bld) 0.7 % Normal [facility] Comment on above: Order Comment: Speci men Type: BLOOD SPECIMENOrdering Facility: [facility] Address: [address] [place] [address] Performed By: #### 5 7021-8 ####[facility] LABIA [id number] [place] [address] [place] Lymphocytes (Bld) [#/Vol] 0.73 10*3/uL Low 1.00-4.00 [facility] Comment on above: Order Comment: Speci men Type: BLOOD SPECIMENOrdering Facility: [facility] Address: [address] [place] [address] Performed By: #### 5 7021-8 ####[facility] LABCLIA [id number] [place] [address] [place] Lymphocytes/100 WBC (Bld) 6.7 % Normal [facility] Comment on above: Order Comment: Speci men Type: BLOOD SPECIMENOrdering Facility: [facility] Address: [address] [place] [address] Performed By: #### 5 7021-8 ####[facility] LABIA [id number] [place] [address] [place] MCH (RBC) [Entitic mass] 29.8 pg Normal 26.0-34.0 [facility] Comment on above: Order Comment: Speci men Type: BLOOD SPECIMENOrdering Facility: [facility] Address: [address] [place] [address] Performed By: #### 5 7021-8 ####[facility] LABIA [id number] [place] [address] [place] MCHC (RBC) [Mass/Vol] 32.2 g/dL Normal 30.5-36.0 [facility] Comment on above: Order Comment: Speci men Type: BLOOD SPECIMENOrdering Facility: [facility] Address: [address] [place] [address] Performed By: #### 5 7021-8 ####[facility] LABIA [id number] [place] [address] [place] MCV (RBC) [Entitic vol] 92.4 fL Normal 80.0-100.0 [facility] Comment on above: Order Comment: Speci men Type: BLOOD SPECIMENOrdering Facility: [facility] Address: [address] [place] [address] Performed By: #### 5 7021-8 ####[facility] LABIA [id number] [place] [address] [place] Monocytes (Bld) [#/Vol] 0.75 10*3/uL Normal <0.87 [facility] Comment on above: Order Comment: Speci men Type: BLOOD SPECIMENOrdering Facility: [facility] Address: [address] [place] [address] Performed By: #### 5 7021-8 ####[facility] LABCLIA [id number] [place] [address] [place] Monocytes/100 WBC (Bld) 6.9 % Normal [facility] Comment on above: Order Comment: Speci men Type: BLOOD SPECIMENOrdering Facility: [facility] Address: [address] [place] [address] Performed By: #### 5 7021-8 ####[facility] LABCLIA [id number] [place] [address] [place] Neutrophils (Bld) [#/Vol] 8.92 10*3/uL High 1.45-7.50 [facility] Comment on above: Order Comment: Speci men Type: BLOOD SPECIMENOrdering Facility: [facility] Address: [address] [place] [address] Performed By: #### 5 7021-8 ####[facility] LABCLIA [id number] [place] [address] [place] Neutrophils/100 WBC (Bld) 82.4 % Normal [facility] Comment on above: Order Comment: Speci men Type: BLOOD SPECIMENOrdering Facility: [facility] Address: [address] [place] [address] Performed By: #### 5 7021-8 ####[facility] LABCLIA [id number] [place] [address] [place] Nucleated RBC (Bld) [#/Vol] 10*3/uL Normal <0.01 [facility] Comment on above: Order Comment: Speci men Type: BLOOD SPECIMENOrdering Facility: [facility] Address: [address] [place] [address] Performed By: #### 5 7021-8 ####[facility] LABCLIA [id number] [place] [address] [place] Nucleated RBC/100 WBC (Bld) [Ratio] 0.0 /100 WBC Normal [facility] Comment on above: Order Comment: Speci men Type: BLOOD SPECIMENOrdering Facility: [facility] Address: [address] [place] [address] Performed By: #### 5 7021-8 ####[facility] LABCLIA [id number] [place] [address] [place] Platelet mean volume (Bld) [Entitic vol] 11.8 fL Normal 9.0-12.7 [facility] Comment on above: Order Comment: Speci men Type: BLOOD SPECIMENOrdering Facility: [facility] Address: [address] [place] [address] Performed By: #### 5 7021-8 ####[facility] LABCLIA [id number] [place] [address] [place] Platelets (Bld) [#/Vol] 234 10*3/uL Normal 150-400 [facility] Comment on above: Order Comment: Speci men Type: BLOOD SPECIMENOrdering Facility: [facility] Address: [address] [place] [address] Performed By: #### 5 7021-8 ####[facility] LABIA [id number] [place] [address] [place] RBC (Bld) [#/Vol] 5.51 10*6/uL Normal 4.20-6.00 [facility] Comment on above: Order Comment: Speci men Type: BLOOD SPECIMENOrdering Facility: [facility] Address: [address] [place] [address] Performed By: #### 5 7021-8 ####[facility] LABCLIA [id number] [place] [address] [place] WBC (Bld) [#/Vol] 10.83 10*3/uL Normal 3.70-11.00 [facility] Comment on above: Order Comment: Speci men Type: BLOOD SPECIMENOrdering Facility: [facility] Address: [address] [place] [address] Performed By: #### 5 7021-8 ####[facility] SUZANEN [id number] [address] [id number] [address] [place] CNOVon 02-25-2024 CNOV Office Visit (FAMPWS ) CLARK LYLES ([id number]) 1935 M Date Time Provider Department 02/25/24 8:20 AM [facility] During [facility] visit today, we recorded the following information about you: Pulse Respiration Blood pressure Weight 60/minute 16/minute 148/70 68.9 kg Brigitte Segal, FINISHER BRUSH.QUALITY CONTROL LAB TECHNICIAN 02/25/2024 8:51 AM Signed This is a [...] with excison cord lipoma performed by Dr. Roeb Mackenzie at [facility] REVSC OPN/PRQ FEM/POP W/STNT/ANGIOP SM VSL 03-18-14 [...] SHUKRI.Pop Harden (more content not included)... Normal [facility] Comprehensive metabolic 2000 panelon 02-25-2024 Albumin [Mass/Vol] 4.4 g/dL Normal 3.9-4.9 [facility] Comment on above: Order Comment: Speci men Type: BLOOD SPECIMENOrdering Facility: [facility] Address: [address] [place] [address] Performed By: #### 3 040-3, 1798-8, 71108-1 ####[facility] LABCLIA [id number] [place] [address] [place] ALP [Catalytic activity/Vol] 57 U/L Normal 38-113 [facility] Comment on above: Order Comment: Speci men Type: BLOOD SPECIMENOrdering Facility: [facility] Address: [address] [place] [address] Performed By: #### 3 040-3, 1798-02, ####[facility] LABCLIA [id number] [address] [address] [place] ALT [Catalytic activity/Vol] 24 U/L Normal 10-54 [facility] Comment on above: Order Comment: Speci men Type: BLOOD SPECIMENOrdering Facility: [facility] Address: [address] [place] [address] Performed By: #### 3 040-3, 1798-02, ####[facility] LABCLIA [id number] [place] [address] [place] Anion gap [Moles/Vol] 12 mmol/L Normal 8-15 [facility] Comment on above: Order Comment: Speci men Type: BLOOD SPECIMENOrdering Facility: [facility] Address: [address] [place] [address] Performed By: #### 3 040-3, 1798-02, ####[facility] LABCLIA [id number] [place] [address] [place] AST [Catalytic activity/Vol] 28 U/L Normal 14-40 [facility] Comment on above: Order Comment: Speci men Type: BLOOD SPECIMENOrdering Facility: [facility] Address: [address] [place], [place] [address] Performed By: #### 3 040-3, 1798-02, ####[facility] LABCLIA [id number] [address] [address] [place] Bilirubin [Mass/Vol] 1.1 mg/dL Normal 0.2-1.3 [facility] Comment on above: Order Comment: Speci men Type: BLOOD SPECIMENOrdering Facility: [facility] Address: [address] [place], [place] [address] Performed By: #### 3 040-3, 1798-02, ####[facility] LABCLIA [id number] [address] [address] [place] Calcium [Mass/Vol] 9.7 mg/dL Normal 8.5-10.2 [facility] Comment on above: Order Comment: Speci men Type: BLOOD SPECIMENOrdering Facility: [facility] Address: [address] [place] [address] Performed By: #### 3 040-3, 1798-02, ####[facility] LABCLIA [id number] [place] [id number] [place] Chloride [Moles/Vol] 103 mmol/L Normal 98-107 [facility] Comment on above: Order Comment: Speci men Type: BLOOD SPECIMENOrdering Facility: [facility] Address: [address] [place] [address] Performed By: #### 3 040-3, 1798-02, ####[facility] LABCLIA [id number] [place] [address] [place] CO2 [Moles/Vol] 24 mmol/L Normal 22-30 [facility] Comment on above: Order Comment: Speci men Type: BLOOD SPECIMENOrdering Facility: [facility] Address: [address] [place] [address] Performed By: #### 3 040-3, 1798-02, ####[facility] LABCLIA [id number] [place] [id number] [place] Creatinine [Mass/Vol] 0.90 mg/dL Normal 0.73-1.22 [facility] Comment on above: Order Comment: Speci men Type: BLOOD SPECIMENOrdering Facility: [facility] Address: [address] [place] [address] Performed By: #### 3 040-3, 1798-02, ####[facility] LABCLIA [id number] [place] [id number] [place] Creatinine and Glomerular filtration rate.predicted panel (S/P/Bld) 83 mL/min/1.73m??? Normal >=60 [facility] Comment on above: Order Comment: Kailey simons Type: BLOOD SPECIMENOrdering Facility: [facility] Address: [address] [place] [address] Result Comment: Louann mated Glomerular Filtration Rate [...] GFR. Performed By: #### 3 040-3, 1798-02, ####[facility] LABCLIA [id number] [place] [address] [place] Glucose [Mass/Vol] 89 mg/dL Normal 74-99 [facility] Comment on above: Order Comment: Kailey simons Type: BLOOD SPECIMENOrdering Facility: [facility] Address: [address] [place] [address] Result Comment: The [place] Diabetes [employer] (ADA) [...] 1). Performed By: #### 3 040-3, 1798-02, ####[facility] LABIA [id number] [place] [id number] [place] Potassium [Moles/Vol] 4.4 mmol/L Normal 3.7-5.1 [facility] Comment on above: Order Comment: Speci men Type: BLOOD SPECIMENOrdering Facility: [facility] Address: [address] [place] [address] Performed By: #### 3 040-3, 1798-02, ####[facility] LABCLIA [id number] [place] [address] [place] Protein [Mass/Vol] 6.1 g/dL Low 6.3-8.0 [facility] Comment on above: Order Comment: Speci men Type: BLOOD SPECIMENOrdering Facility: [facility] Address: [address] [place] [address] Performed By: #### 3 040-3, 1798-02, ####[facility] LABCLIA [id number] [place] [address] [place] Sodium [Moles/Vol] 139 mmol/L Normal 136-144 [facility] Comment on above: Order Comment: Speci men Type: BLOOD SPECIMENOrdering Facility: [facility] Address: [address] [place] [address] Performed By: #### 3 040-3, 1798-02, ####[facility] LABCLIA [id number] [place] [address] [place] Urea nitrogen [Mass/Vol] 15 mg/dL Normal 9-24 [facility] Comment on above: Order Comment: Speci men Type: BLOOD SPECIMENOrdering Facility: [facility] Address: [address] [place] [address] Performed By: #### 3 040-3, 1798-02, ####[facility] LABCLIA [id number] [address] [address] [place] H. pylori IgG IA Qlon 2023 H. PYLORI IGG, QUAL Negative Normal Negative [facility] Comment on above: Order Comment: Kailey kristyn Type: BLOOD SPECIMENOrdering Facility: [facility] Address: [address] [place] [address] Result Comment: To ot exclude H. pylori infection if the specimen collected 3-4 weeks after onset of symptoms. Performed By: #### 1 7859-0 ####[facility] LABCLIA [id number] [place] [address] [place] Lipase SerPl-cCncon 02-25-20 24 Lipase [Catalytic activity/Vol] 41 U/L Normal 16-61 [facility] Comment on above: Order Comment: Georgehakan simons Type: BLOOD SPECIMENOrdering Facility: [facility] Address: [address] [place] [address] Performed By: #### 3 040-3, 1798-8, 96529-1 ####[facility] LABCLIA [id number] [address] [place] Cardiology Visit Reporton Cardiology Visit Report [facility] 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 Normal [facility] 12 Lead EKGon 02-09-2024 12 Lead EKG [facility] [address] [place] [address] 12 Lead EKG 02/09/24 0952 MR#: [id number] Acct: [id number] Name: CLARK LYLES Rep #: [id number] : 1935 88 From: Farrah Ruvalcaba MD [...] Normal ECG Confirmed by RITA MANUEL, YUAN ([id number]), film editor FARSHAD PANDYA ([id number]) on 02/13/2024 9:44:33 AM Referred By: AR Confirmed By:ABEL RUVALCABA MD 02/13/24 0944 Date Farrah Ruvalcaba MD CC: Dr. Tamra Ivey MD; CHRISTINE Brown Signed Normal [facility] BNP,B-Type NATRIURETIC PEPTI Giovanni 02-09-2024 Natriuretic peptide B (Bld) [Mass/Vol] 180.0 pg/mL High 0-100 [facility] Comment on above: Performed By: #### L 100.0100, L300.8000, L503.6620, L500.2500, L501.4020 ####[facility] [address] [place], [address] Basic Metabolic Profile (BMP )on 02-09-2024 BUN/CRE 13.1 RATIO Normal 10-20 [facility] Comment on above: Order Comment: 'TROP ' Serial specimen #1, #2 or #3: 1 Performed By: #### L 100.0100, L300.8000, L503.6620, L500.2500, L501.4020 ####[facility] [address] [place], [address] CA,Total 9.0 mg/dL Normal 8.5-10.1 [facility] Comment on above: Order Comment: 'TROP ' Serial specimen #1, #2 or #3: 1 Performed By: #### L 100.0100, L300.8000, L503.6620, L500.2500, L501.4020 ####[facility] [address] [place], [address] Chloride [Moles/Vol] 105 mmol/L Normal 98-107 [facility] Comment on above: Order Comment: 'TROP ' Serial specimen #1, #2 or #3: 1 Performed By: #### L 100.0100, L300.8000, L503.6620, L500.2500, L501.4020 ####[facility] [address] [place], [address] CO2 [Moles/Vol] 24.0 mmol/L Normal 21.0-32.0 [facility] Comment on above: Order Comment: 'TROP ' Serial specimen #1, #2 or #3: 1 Performed By: #### L 100.0100, L300.8000, L503.6620, L500.2500, L501.4020 ####[facility] [address] [place], [address] Creatinine [Mass/Vol] 0.92 mg/dL Normal 0.70-1.30 [facility] Comment on above: Order Comment: 'TROP ' Serial specimen #1, #2 or #3: 1 Result Comment: The validity of the calculated GFR GFRAA in patients over 70 years has not been determined. Clinical correlation is essential. Performed By: #### L 100.0100, L300.8000, L503.6620, L500.2500, L501.4020 ####[facility] [address] [place], [address] ECRCL 58.61 ml/min Normal [facility] Comment on above: Order Comment: 'TROP ' Serial specimen #1, #2 or #3: 1 Performed By: #### L 100.0100, L300.8000, L503.6620, L500.2500, L501.4020 ####[facility] [address] [place], [address] EST GFR - AA 100 mL/min Normal >60 [facility] Comment on above: Order Comment: 'TROP ' Serial specimen #1, #2 or #3: 1 Result Comment: Afri can [place] GFR Calc Performed By: #### L 100.0100, L300.8000, L503.6620, L500.2500, L501.4020 ####[facility] [address] [place], [address] GAP 7 Normal 5-15 [facility] Comment on above: Order Comment: 'TROP ' Serial specimen #1, #2 or #3: 1 Performed By: #### L 100.0100, L300.8000, L503.6620, L500.2500, L501.4020 ####[facility] [address] [place], [address] GFR/1.73 sq M.predicted among non-blacks MDRD (S/P/Bld) [Vol rate/Area] 83 mL/min/{1.73_m2} Normal >60 [facility] Comment on above: Order Comment: 'TROP ' Serial specimen #1, #2 or #3: 1 Result Comment: Non- GFR Calc Performed By: #### L 100.0100, L300.8000, L503.6620, L500.2500, L501.4020 ####[facility] [address] [place], [address] Glucose [Mass/Vol] 115 mg/dL High 74-106 [facility] Comment on above: Order Comment: 'TROP ' Serial specimen #1, #2 or #3: 1 Result Comment: Fast ing Glucose result from 100 to 125 mg/dL suggests IMPAIRED HOMEOSTASIS per A.D.A. criteria. Performed By: #### L 100.0100, L300.8000, L503.6620, L500.2500, L501.4020 ####[facility] [address] [place], [address] Potassium [Moles/Vol] 3.6 mmol/L Normal 3.5-5.1 [facility] Comment on above: Order Comment: 'TROP ' Serial specimen #1, #2 or #3: 1 Performed By: #### L 100.0100, L300.8000, L503.6620, L500.2500, L501.4020 ####[facility] [address] [place], [address] Sodium [Moles/Vol] 136 mmol/L Normal 136-145 [facility] Comment on above: Order Comment: 'TROP ' Serial specimen #1, #2 or #3: 1 Performed By: #### L 100.0100, L300.8000, L503.6620, L500.2500, L501.4020 ####[facility] [address] [place], [address] Urea nitrogen [Mass/Vol] 12 mg/dL Normal 7-18 [facility] Comment on above: Order Comment: 'TROP ' Serial specimen #1, #2 or #3: 1 Performed By: #### L 100.0100, L300.8000, L503.6620, L500.2500, L501.4020 ####[facility] [address] [place], [address] CBC W/Diff, Automatedon 07- Absolute Lymph 0.49 X10 3/uL Low 0.83-4.51 [facility] Comment on above: Performed By: #### L 100.0100, L300.8000, L503.6620, L500.2500, L501.4020 ####[facility] [address] [place], [address] Absolute Neut 7.0 X10 3/uL Normal 2.0-7.7 [facility] Comment on above: Performed By: #### L 100.0100, L300.8000, L503.6620, L500.2500, L501.4020 ####[facility] [address] [place], [address] Basophils/100 WBC (Bld) 0.2 % Normal 0-1 [facility] Comment on above: Performed By: #### L 100.0100, L300.8000, L503.6620, L500.2500, L501.4020 ####[facility] [address] [place], [address] Eosinophils/100 WBC (Bld) 1.4 % Normal 0-5 [facility] Comment on above: Performed By: #### L 100.0100, L300.8000, L503.6620, L500.2500, L501.4020 ####[facility] [address] [place], [address] Erythrocyte distribution width (RBC) [Ratio] 15.9 % High 11.6-14.6 [facility] Comment on above: Performed By: #### L 100.0100, L300.8000, L503.6620, L500.2500, L501.4020 ####[facility] [address] [place], [address] Hematocrit (Bld) [Volume fraction] 46.2 % Normal 40-54 [facility] Comment on above: Performed By: #### L 100.0100, L300.8000, L503.6620, L500.2500, L501.4020 ####[facility] [address] [place], [address] Hemoglobin (Bld) [Mass/Vol] 15.6 g/dL Normal 13.0-16.5 [facility] Comment on above: Performed By: #### L 100.0100, L300.8000, L503.6620, L500.2500, L501.4020 ####[facility] [address] [place], [address] IG% 1.000 High 0.0-0.9 [facility] Comment on above: Result Comment: IG% - Immature Granulocytes (promyelocytes, myelocytes and metamyelocytes) > 1% indicates that a LEFT SHIFT is Present. Performed By: #### L 100.0100, L300.8000, L503.6620, L500.2500, L501.4020 ####[facility] [address] [place], [address] Lymphocytes/100 WBC (Bld) 5.8 % Low 19-41 [facility] Comment on above: Performed By: #### L 100.0100, L300.8000, L503.6620, L500.2500, L501.4020 ####[facility] [address] [place], [address] MCH (RBC) [Entitic mass] 30.8 pg Normal 27.0-32.0 [facility] Comment on above: Performed By: #### L 100.0100, L300.8000, L503.6620, L500.2500, L501.4020 ####[facility] [address] [place], [address] MCHC (RBC) [Mass/Vol] 33.8 g/dL Normal 32-36 [facility] Comment on above: Performed By: #### L 100.0100, L300.8000, L503.6620, L500.2500, L501.4020 ####[facility] [address] [place], [address] MCV (RBC) [Entitic vol] 91.1 fL Normal 80-94 [facility] Comment on above: Performed By: #### L 100.0100, L300.8000, L503.6620, L500.2500, L501.4020 ####[facility] [address] [place], [address] Monocytes/100 WBC (Bld) 8.1 % Normal 0-10 [facility] Comment on above: Performed By: #### L 100.0100, L300.8000, L503.6620, L500.2500, L501.4020 ####[facility] [address] [place], [address] Neutrophils/100 WBC (Bld) 83.5 % High 47-70 [facility] Comment on above: Performed By: #### L 100.0100, L300.8000, L503.6620, L500.2500, L501.4020 ####[facility] [address] [place], [address] Nucleated RBC (Bld) [#/Vol] 0 10*3/uL Normal 0-5 [facility] Comment on above: Performed By: #### L 100.0100, L300.8000, L503.6620, L500.2500, L501.4020 ####[facility] [address] [place], [address] Platelet mean volume (Bld) [Entitic vol] 10.8 fL Normal 6.2-12.0 [facility] Comment on above: Performed By: #### L 100.0100, L300.8000, L503.6620, L500.2500, L501.4020 ####[facility] [address] [place], [address] Platelets (Bld) [#/Vol] 264 10*3/uL Normal 150-450 [facility] Comment on above: Performed By: #### L 100.0100, L300.8000, L503.6620, L500.2500, L501.4020 ####[facility] [address] [place], [address] RBC (Bld) [#/Vol] 5.07 10*6/uL Normal 4.6-6.2 [facility] Comment on above: Performed By: #### L 100.0100, L300.8000, L503.6620, L500.2500, L501.4020 ####[facility] [address] [place], [address] RDW SD 53.1 fl High 35.1-43.9 [facility] Comment on above: Performed By: #### L 100.0100, L300.8000, L503.6620, L500.2500, L501.4020 ####[facility] [address] [place], [address] WBC (Bld) [#/Vol] 8.4 10*3/uL Normal 4.4-11.0 [facility] Comment on above: Performed By: #### L 100.0100, L300.8000, L503.6620, L500.2500, L501.4020 ####[facility] [address] [place], [address] Chest PA and Lateralon 02-08 Chest PA and Lateral [facility] Imaging Services [address] [place] [address] Chest PA and Lateral MR#: [id number] Acct: [id number] Name: TRUPTICLARK LAMA Rep #: [id number] : 1935 M 88 From: Yana Sampson MD PCP: CHRISTINE Brown Status: [facility] ER Study: Chest PA and Lateral Date of Exam: 02/09/24 Exam# [id number] Ordering Dr: Tamra Ivey MD [id number] INDICATION: Shortness of breath EXAMINATION/TECHNIQUE: X-RAY - [...] CC: Dr. 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 Performed By: #### L 100.0100, L300.8000, L503.6620, L500.2500, L501.4020 ####[facility] [address] [facility] [place], [address] Emergency Department Summary on 02-09-2024 Emergency Department Summary [facility] Medical Records Department [address] [place] [address] Emergency Department Summary 02/09/24 MR#: [id number] Acct: [id number] Name: CLARK LYLES Rep #: [id number] : 1935 88 From: Tamra Ivey MD [...] CHF. He has not noted peripheral swelling. [facility] Medical History COVID-19 virus detected (08/23/20) Anxiety and depression Chronic anemia Acute respiratory failure with hypoxia Hypoxia Pneumonia due to COVID-19 virus GI bleed (12/2019) Atherosclerosis of coronary artery of [place] heart without angina pectoris Peripheral vascular occlusive [...] Neurologic Neurologi (more content not included)... Normal [facility] L501.4020on 02-09-2024 TROPONIN-I HS 7 pg/mL Normal 3.0-78.0 [facility] Comment on above: Order Comment: 'TROP ' Serial specimen #1, #2 or #3: 1 Result Comment: Peg jiménez Note: New Test Units and Gender Specific Reference Ranges. For more information see Policy Stat Procedure [place] High Sensitivity Troponin (TNIH) and attachments. Performed By: #### L 100.0100, L300.8000, L503.6620, L500.2500, L501.4020 ####[facility] [address] [place], [address] [facility] CLARK LYLES ([id number]) 1935 M Date Time Provider Department 12/28/23 WALTER GOMEZ [facility] During your visit today, we recorded the following information about you: Walter [place] MD 12/28/2023 2:27 PM Signed Let him know his labs are stable. Shirley Rivera MA 01/01/2024 4:48 PM Signed Attempted to call, no answer Shirley Rivera MA 01/04/2024 3:41 PM Signed Letter [...] daily Meds Comments as of 04/18/2021: Taking [employer]. Problem List As Of Date 12/28/2023 Noted Resolved BENIGN HYPERTENSION [I10] 01/08/2006 Anxiety state [F41.1] 01/05/2009 GERD (gastroesophageal reflux disease) [K21.9] 01/10/2011 BPH (benign prostatic hyperplasia) [N40.0] 03/17/2013 PAD (peripheral artery disease) ([facility]) [I73.9] 02/28/2014 Hyperlipidemia LDL goal <100 [E78.5] 03/28/2016 Hyperbilirubinemia [E80.6] 05/10/2016 Parkinson's disease (HCC) [G20.A1] 07/11/2017 Angina pectoris (HCC) [I20.9] 08/25/2019 Restless legs syndrome [G25.81] 01/27/2020 Iron deficiency anemia due to chronic blood los*01/27/2020 Coronary artery disease involving [place] rabago*12/22/2020 S/P primary angioplasty with coronary stent [Z9*12/22/2020 Fall from standing [W19.XXXA] 09/20/2021 Encounter for support and coordination of trans*08/11/2023 Acute respiratory failure with hypoxia (HCC) [J*09/25/2023 Letter Text Encounter Status:Closed by SHIRLEY RIVERA on 01/04/24 Normal [facility] CBC W Auto Differential pane l (Bld)on 12-27-2023 Basophils (Bld) [#/Vol] 0.04 10*3/uL Normal <0.11 [facility] Comment on above: Order Comment: Speci men Type: BLOOD SPECIMENOrdering Facility: [facility] Address: [address] [place] [address] Performed By: #### 5 7021-8 ####[facility] LABCLIA [id number] [place] [address] [place] Basophils/100 WBC (Bld) 0.5 % Normal [facility] Comment on above: Order Comment: Speci men Type: BLOOD SPECIMENOrdering Facility: [facility] Address: [address] [place] [address] Performed By: #### 5 7021-8 ####[facility] LABCLIA [id number] [place] [address] [place] Differential cell count method Nom (Bld) Auto Normal [facility] Comment on above: Order Comment: Speci men Type: BLOOD SPECIMENOrdering Facility: [facility] Address: [address] [place] [address] Performed By: #### 5 7021-8 ####[facility] LABCLIA [id number] [place] [address] [place] Eosinophils (Bld) [#/Vol] 0.36 10*3/uL Normal <0.46 [facility] Comment on above: Order Comment: Speci men Type: BLOOD SPECIMENOrdering Facility: [facility] Address: [address] [place] [address] Performed By: #### 5 7021-8 ####[facility] LABIA [id number] [place] [address] [place] Eosinophils/100 WBC (Bld) 4.5 % Normal [facility] Comment on above: Order Comment: Speci men Type: BLOOD SPECIMENOrdering Facility: [facility] Address: [address] [place] [address] Performed By: #### 5 7021-8 ####[facility] LABIA [id number] [place] [address] [place] Erythrocyte distribution width (RBC) [Ratio] 16.4 % High 11.5-15.0 [facility] Comment on above: Order Comment: Speci men Type: BLOOD SPECIMENOrdering Facility: [facility] Address: [address] [place] [address] Performed By: #### 5 7021-8 ####[facility] LABIA [id number] [place] [address] [place] Hematocrit (Bld) [Volume fraction] 47.6 % Normal 39.0-51.0 [facility] Comment on above: Order Comment: Speci men Type: BLOOD SPECIMENOrdering Facility: [facility] Address: [address] [place] [address] Performed By: #### 5 7021-8 ####[facility] LABIA [id number] [place] [address] [place] Hemoglobin (Bld) [Mass/Vol] 15.7 g/dL Normal 13.0-17.0 [facility] Comment on above: Order Comment: Speci men Type: BLOOD SPECIMENOrdering Facility: [facility] Address: [address] [place] [address] Performed By: #### 5 7021-8 ####[facility] LABCLIA [id number] [place] [address] [place] Immature granulocytes (Bld) [#/Vol] 0.07 10*3/uL Normal <0.10 [facility] Comment on above: Order Comment: Speci men Type: BLOOD SPECIMENOrdering Facility: [facility] Address: [address] [place] [address] Performed By: #### 5 7021-8 ####[facility] LABCLIA [id number] [place] [address] [place] Immature granulocytes/100 WBC (Bld) 0.9 % Normal [facility] Comment on above: Order Comment: Speci men Type: BLOOD SPECIMENOrdering Facility: [facility] Address: [address] [place] [address] Performed By: #### 5 7021-8 ####[facility] LABIA [id number] [place] [address] [place] Lymphocytes (Bld) [#/Vol] 0.72 10*3/uL Low 1.00-4.00 [facility] Comment on above: Order Comment: Speci men Type: BLOOD SPECIMENOrdering Facility: [facility] Address: [address] [place] [address] Performed By: #### 5 7021-8 ####[facility] LABIA [id number] [place] [address] [place] Lymphocytes/100 WBC (Bld) 8.9 % Normal [facility] Comment on above: Order Comment: Speci men Type: BLOOD SPECIMENOrdering Facility: [facility] Address: [address] [place] [address] Performed By: #### 5 7021-8 ####[facility] LABIA [id number] [place] [address] [place] MCH (RBC) [Entitic mass] 30.5 pg Normal 26.0-34.0 [facility] Comment on above: Order Comment: Speci men Type: BLOOD SPECIMENOrdering Facility: [facility] Address: [address] [place] [address] Performed By: #### 5 7021-8 ####[facility] LABCLIA [id number] [place] [address] [place] MCHC (RBC) [Mass/Vol] 33.0 g/dL Normal 30.5-36.0 [facility] Comment on above: Order Comment: Speci men Type: BLOOD SPECIMENOrdering Facility: [facility] Address: [address] [place] [address] Performed By: #### 5 7021-8 ####[facility] LABIA [id number] [place] [address] [place] MCV (RBC) [Entitic vol] 92.6 fL Normal 80.0-100.0 [facility] Comment on above: Order Comment: Speci men Type: BLOOD SPECIMENOrdering Facility: [facility] Address: [address] [place] [address] Performed By: #### 5 7021-8 ####[facility] LABIA [id number] [place] [address] [place] Monocytes (Bld) [#/Vol] 0.84 10*3/uL Normal <0.87 [facility] Comment on above: Order Comment: Speci men Type: BLOOD SPECIMENOrdering Facility: [facility] Address: [address] [place] [address] Performed By: #### 5 7021-8 ####[facility] LABIA [id number] [place] [address] [place] Monocytes/100 WBC (Bld) 10.4 % Normal [facility] Comment on above: Order Comment: Speci men Type: BLOOD SPECIMENOrdering Facility: [facility] Address: [address] [place] [address] Performed By: #### 5 7021-8 ####[facility] LABCLIA [id number] [place] [address] [place] Neutrophils (Bld) [#/Vol] 6.02 10*3/uL Normal 1.45-7.50 [facility] Comment on above: Order Comment: Speci men Type: BLOOD SPECIMENOrdering Facility: [facility] Address: [address] [place] [address] Performed By: #### 5 7021-8 ####[facility] LABCLIA [id number] [place] [address] [place] Neutrophils/100 WBC (Bld) 74.8 % Normal [facility] Comment on above: Order Comment: Speci men Type: BLOOD SPECIMENOrdering Facility: [facility] Address: [address] [place] [address] Performed By: #### 5 7021-8 ####[facility] LABCLIA [id number] [place] [address] [place] Nucleated RBC (Bld) [#/Vol] 10*3/uL Normal <0.01 [facility] Comment on above: Order Comment: Speci men Type: BLOOD SPECIMENOrdering Facility: [facility] Address: [address] [place] [address] Performed By: #### 5 7021-8 ####[facility] LABCLIA [id number] [place] [address] [place] Nucleated RBC/100 WBC (Bld) [Ratio] 0.0 /100 WBC Normal [facility] Comment on above: Order Comment: Speci men Type: BLOOD SPECIMENOrdering Facility: [facility] Address: [address] [place] [address] Performed By: #### 5 7021-8 ####[facility] LABCLIA [id number] [place] [address] [place] Platelet mean volume (Bld) [Entitic vol] 11.6 fL Normal 9.0-12.7 [facility] Comment on above: Order Comment: Speci men Type: BLOOD SPECIMENOrdering Facility: [facility] Address: [address] [place] [address] Performed By: #### 5 7021-8 ####[facility] LABCLIA [id number] [place] [address] [place] Platelets (Bld) [#/Vol] 209 10*3/uL Normal 150-400 [facility] Comment on above: Order Comment: Speci men Type: BLOOD SPECIMENOrdering Facility: [facility] Address: [address] [place] [address] Performed By: #### 5 7021-8 ####[facility] LABCLIA [id number] [place] [address] [place] RBC (Bld) [#/Vol] 5.14 10*6/uL Normal 4.20-6.00 [facility] Comment on above: Order Comment: Speci men Type: BLOOD SPECIMENOrdering Facility: [facility] Address: [address] [place] [address] Performed By: #### 5 7021-8 ####[facility] LABCLIA [id number] [place] [address] [place] WBC (Bld) [#/Vol] 8.05 10*3/uL Normal 3.70-11.00 [facility] Comment on above: Order Comment: Speci men Type: BLOOD SPECIMENOrdering Facility: [facility] Address: [address] [place] [address] Performed By: #### 5 7021-8 ####[facility] LABCLIA [id number] [place] [address] [place] Comprehensive metabolic 2000 panelon 12-27-2023 Albumin [Mass/Vol] 4.3 g/dL Normal 3.9-4.9 [facility] Comment on above: Order Comment: Speci men Type: BLOOD SPECIMENOrdering Facility: [facility] Address: [address] [place] [address] Performed By: #### 2 4323-8, , ####[facility] LABCLIA [id number] [place] [address] [place] ALP [Catalytic activity/Vol] 57 U/L Normal 38-113 [facility] Comment on above: Order Comment: Speci men Type: BLOOD SPECIMENOrdering Facility: [facility] Address: [address] [place] [address] Performed By: #### 2 4323-8, , ####[facility] LABCLIA [id number] [place] [address] [place] ALT [Catalytic activity/Vol] 15 U/L Normal 10-54 [facility] Comment on above: Order Comment: Speci men Type: BLOOD SPECIMENOrdering Facility: [facility] Address: [address] [place] [address] Performed By: #### 2 4323-8, , ####[facility] LABIA [id number] [place] [address] [place] Anion gap [Moles/Vol] 13 mmol/L Normal 9-18 [facility] Comment on above: Order Comment: Speci men Type: BLOOD SPECIMENOrdering Facility: [facility] Address: [address] [place] [address] Performed By: #### 2 4323-8, , ####[facility] LABIA [id number] [place] [address] [place] AST [Catalytic activity/Vol] 19 U/L Normal 14-40 [facility] Comment on above: Order Comment: Speci men Type: BLOOD SPECIMENOrdering Facility: [facility] Address: [address] [place], [place] [address] Performed By: #### 2 4323-8, , ####[facility] LABCLIA [id number] [address] [address] [place] Bilirubin [Mass/Vol] 1.3 mg/dL Normal 0.2-1.3 [facility] Comment on above: Order Comment: Speci men Type: BLOOD SPECIMENOrdering Facility: [facility] Address: [address] [place] [address] Performed By: #### 2 4323-8, , ####[facility] LABCLIA [id number] [place] [address] [place] Calcium [Mass/Vol] 9.0 mg/dL Normal 8.5-10.2 [facility] Comment on above: Order Comment: Speci men Type: BLOOD SPECIMENOrdering Facility: [facility] Address: [address] [place] [address] Performed By: #### 2 4323-8, , ####[facility] LABIA [id number] [place] [address] [place] Chloride [Moles/Vol] 106 mmol/L High 97-105 [facility] Comment on above: Order Comment: Speci men Type: BLOOD SPECIMENOrdering Facility: [facility] Address: [address] [place], [place] [address] Performed By: #### 2 4323-8, , ####[facility] LABCLIA [id number] [place] [id number] [place] CO2 [Moles/Vol] 23 mmol/L Normal 22-30 [facility] Comment on above: Order Comment: Speci men Type: BLOOD SPECIMENOrdering Facility: [facility] Address: [address] [place], [place] [address] Performed By: #### 2 4323-8, , ####[facility] LABCLIA [id number] [place] [id number] [place] Creatinine [Mass/Vol] 1.00 mg/dL Normal 0.73-1.22 [facility] Comment on above: Order Comment: Speci men Type: BLOOD SPECIMENOrdering Facility: [facility] Address: [address] [place] [address] Performed By: #### 2 4323-8, , ####[facility] LABIA [id number] [place] [address] [place] Creatinine and Glomerular filtration rate.predicted panel (S/P/Bld) 73 mL/min/1.73m??? Normal >=60 [facility] Comment on above: Order Comment: Kialey simons Type: BLOOD SPECIMENOrdering Facility: [facility] Address: [address] [place] [address] Result Comment: Louann mated Glomerular Filtration Rate [...] GFR. Performed By: #### 2 4323-8, , ####[facility] LABIA [id number] [place] [id number] [place] Glucose [Mass/Vol] 93 mg/dL Normal 74-99 [facility] Comment on above: Order Comment: Speci men Type: BLOOD SPECIMENOrdering Facility: [facility] Address: [address] [place] [address] Result Comment: The [place] Diabetes [employer] (ADA) [...] 1). Performed By: #### 2 4323-8, , ####[facility] LABCLIA [id number] [address] [address] [place] Potassium [Moles/Vol] 4.0 mmol/L Normal 3.7-5.1 [facility] Comment on above: Order Comment: Speci men Type: BLOOD SPECIMENOrdering Facility: [facility] Address: [address] [place] [address] Performed By: #### 2 4323-8, , ####[facility] LABCLIA [id number] [place] [address] [place] Protein [Mass/Vol] 6.0 g/dL Low 6.3-8.0 [facility] Comment on above: Order Comment: Speci men Type: BLOOD SPECIMENOrdering Facility: [facility] Address: [address] [place] [address] Performed By: #### 2 4323-8, , ####[facility] LABCLIA [id number] [address] [address] [place] Sodium [Moles/Vol] 142 mmol/L Normal 136-144 [facility] Comment on above: Order Comment: Speci men Type: BLOOD SPECIMENOrdering Facility: [facility] Address: [address] [place] [address] Performed By: #### 2 4323-8, , ####[facility] LABCLIA [id number] [place] [address] [place] Urea nitrogen [Mass/Vol] 15 mg/dL Normal 9-24 [facility] Comment on above: Order Comment: Speci men Type: BLOOD SPECIMENOrdering Facility: [facility] Address: [address] [place] [address] Performed By: #### 2 4323-8, 38873-5, 59587-9 ####[facility] LABCLIA [id number] [place] [address] [place] Lipid 1996 panelon 4 Cholesterol [Mass/Vol] 131 mg/dL Normal <200 [facility] Comment on above: Order Comment: Speci men Type: BLOOD SPECIMENOrdering Facility: [facility] Address: [address] [place] [address] Result Comment: <200 mg/dL, Desirable 200-239 mg/dL, Borderline high >239 mg/dL, High Performed By: #### 2 4323-8, , 22633-9 ####[facility] LABCLIA [id number] [place] [address] [place] Cholesterol in HDL [Mass/Vol] 38 mg/dL Low >39 [facility] Comment on above: Order Comment: Speci men Type: BLOOD SPECIMENOrdering Facility: [facility] Address: [address] [place] [address] Result Comment: 40-5 9 mg/dL, Acceptable >59 mg/dL, High: Negative risk factor for coronary heart disease <40 mg/dL, Low: Positive risk factor for coronary heart disease Performed By: #### 2 4323-8, 78944-1, 32085-3 ####[facility] LABCLIA [id number] [address] [place] Cholesterol in LDL [Mass/Vol] 75 mg/dL Normal <100 [facility] Comment on above: Order Comment: Speci men Type: BLOOD SPECIMENOrdering Facility: [facility] Address: [address] [place] [address] Result Comment: <100 mg/dL, Optimal 100-129 mg/dL, Near optimal/above optimal 130-159 mg/dL, Borderline high 160-189 mg/dL, High >189 mg/dL, Very high Secondary prevention optimal LDL Cholesterol levels are recommended to be < 70 mg/dL Performed By: #### 2 4323-8, 63196-3, 72319-3 ####[facility] LABCLIA [id number] [place] [address] [place] Cholesterol in LDL/Cholesterol in HDL [Mass ratio] 1.97 {ratio} Normal <2.54 [facility] Comment on above: Order Comment: Kailey men Type: BLOOD SPECIMENOrdering Facility: [facility] Address: [address] [place] [address] Result Comment: Refe rence: 1. National Cholesterol Education Program ATP III Guideline At-A-Glance Quick Desk Reference: National Heart, Lung, and Blood [place]. National Institutes of Health. 2001: NIH Publication No. 01-3305. 2. An International Atherosclerosis Society position paper: global recommendations for the management of dyslipidemia: executive summary, Atherosclerosis. 2014: 232(2):410-413. Performed By: #### 2 4323-8, , ####[facility] LABCLIA [id number] [place] [address] [place] Cholesterol in VLDL [Mass/Vol] 18 mg/dL Normal <30 [facility] Comment on above: Order Comment: Kailey men Type: BLOOD SPECIMENOrdering Facility: [facility] Address: [address] [place] [address] Performed By: #### 2 4323-8, , ####[facility] LABCLIA [id number] [address] [address] [place] Cholesterol non HDL [Mass/Vol] 93 mg/dL Normal <130 [facility] Comment on above: Order Comment: Kailey men Type: BLOOD SPECIMENOrdering Facility: [facility] Address: [address] [place] [address] Result Comment: <130 mg/dL, Optimal 130-159 mg/dL, Near optimal/above optimal 160-189 mg/dL, Borderline high 190-219 mg/dL, High >219 mg/dL, Very high Secondary prevention optimal non HDL Cholesterol levels are recommended to be <100 mg/dL Performed By: #### 2 4323-8, 85153-9, 94665-1 ####[facility] LABCLIA [id number] [place] [address] [place] Cholesterol.total/Chol esterol in HDL [Mass ratio] 3.45 {ratio} Normal <5.10 [facility] Comment on above: Order Comment: Speci men Type: BLOOD SPECIMENOrdering Facility: [facility] Address: [address] [place] [address] Performed By: #### 2 4323-8, , ####[facility] LABCLIA [id number] [place] [address] [place] FASTING TIME 12 hrs Normal [facility] Comment on above: Order Comment: Speci men Type: BLOOD SPECIMENOrdering Facility: [facility] Address: [address] [place] [address] Performed By: #### 2 4323-8, , ####[facility] LABCLIA [id number] [place] [address] [place] Triglyceride [Mass/Vol] 91 mg/dL Normal <150 [facility] Comment on above: Order Comment: Speci men Type: BLOOD SPECIMENOrdering Facility: [facility] Address: [address] [place] [address] Result Comment: <150 mg/dL, Normal 150-199 mg/dL, Borderline high 200-499 mg/dL, High >499 mg/dL, Very high Performed By: #### 2 4323-8, , 20024-2 ####[facility] LABCLIA [id number] [place] [id number] [place] Magnesium SerPl-mCncon 12-26 Magnesium [Mass/Vol] 2.1 mg/dL Normal 1.7-2.3 [facility] Comment on above: Order Comment: Speci men Type: BLOOD SPECIMENOrdering Facility: [facility] Address: [address] [place] [address] Performed By: #### 2 4323-8, 34058-8, 13804-8 ####[facility] LABCLIA [id number] [place] [address] [place] CNOVon 12-25-2023 CNOV Office Visit (TRUDY ) CLARK LYLES ([id number]) 1935 M Date Time Provider Department 12/25/23 9:00 AM Radha DURBIN During your visit today, we recorded the following information about you: Pulse Respiration Blood pressure Weight 61/minute 16/minute 120/68 72.1 kg Radha Durbin PA-C 12/26/2023 2:22 PM Signed 88 year old male with c/o here for follow up. 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 (primary encounter diagnosis) S/p primary angioplasty with coronary stent Angina pectoris (hcc) Atherosclerosis of aorta (hcc) Essential hypertension, benign Hyperlipidemia ldl goal <100 Pad (peripheral artery disease) (hcc) Cardiovascular interval hx: Sees [place] cardiology: no new records 08/01/2023-08/04/2023 hospitalized [facility]: progressive SOB, hypoxia, bilateral pneumonia suspected atypical but negative cultures. 08/02/2023 echocardiogram [facility]: LV size WNL, mild concentric LVH, [...] to suggest ischemia. 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 [...] Lymph 1.00 - 4.00 k/uL 0.81 (L) [place]% % 9.0 Abs [place] <0.87 k/uL 0.99 (H) [place]% % 2.6 [...] Ratio <5.10 (more content not included)... Normal [facility] Absolute lymphocyte countOrd ered By: Jerrell Faith on 08-04-2023 Lymphocytes Auto (Unsp spec) [#/Vol] 0.71 10*3/uL 0.83-4.51 [facility] Basophil percentageOrdered B y: Jerrell Faith on 08-04-2023 Basophils/100 WBC (Bld) 0.4 % 0-1 [facility] Chloride [Moles/Vol] 113 mmol/L 98-107 [facility] Eosinophils/100 WBC (Bld) 4.1 % 0-5 [facility] Glucose [Mass/Vol] 96 mg/dL 74-106 [facility] Neutrophils (Bld) [#/Vol] 6.1 10*3/uL 2.0-7.7 [facility] Neutrophils/100 WBC (Bld) 76.4 % 47-70 [facility] Potassium [Moles/Vol] 4.1 mmol/L 3.5-5.1 [facility] Sodium [Moles/Vol] 141 mmol/L 136-145 [facility] WBC (Bld) [#/Vol] 8.0 10*3/uL 4.4-11.0 [facility] Blood erythrocytes count (nu mber/volume)Ordered By: Jerrell Faith on 08-04-2023 RBC (Bld) [#/Vol] 4.52 10*6/uL 4.6-6.2 [facility] Blood hemoglobin measurement (mass/volume)Ordered By: Jerrell Faith on 08-04-2023 Hemoglobin (Bld) [Mass/Vol] 13.4 g/dL 13.0-16.5 [facility] Blood lymphocytes/100 leukoc ytesOrdered By: Jerrell Faith on 08-04-2023 Lymphocytes/100 WBC (Bld) 8.9 % 19-41 [facility] Blood monocytes/100 leukocyt esOrdered By: Jerrell Faith on 08-04-2023 Monocytes/100 WBC (Bld) 9.4 % 0-10 [facility] Blood platelet mean volumeOr dered By: Jerrell Faith on 08-04-2023 Platelet mean volume (Bld) [Entitic vol] 10.7 fL 6.2-12.0 [facility] Determination of erythrocyte mean corpuscular volume (MCV)Ordered By: Jerrell Faith on 08-04-2023 MCV (RBC) [Entitic vol] 92.3 fL 80-94 [facility] Hematocrit Auto (Bld) [Volum e fraction]Ordered By: Jerrell Faith on 08-04-2023 Hematocrit (Bld) [Volume fraction] 41.7 % 40-54 [facility] Laboratory - Chemistry and C hemistry - challengeOrdered By: Jerrell Faith on 08-04-2023 CO2 [Moles/Vol] 25.0 mmol/L 21.0-32.0 [facility] Urea nitrogen/Creatinine [Mass ratio] 22.1 mg/mg 10-20 [facility] Laboratory - Hematology and Cell countsOrdered By: Jerrell Faith on 08-04-2023 Erythrocyte distribution width (RBC) [Entitic vol] 49.3 fL 35.1-43.9 [facility] Erythrocyte distribution width (RBC) [Ratio] 14.6 % 11.6-14.6 [facility] Immature granulocytes/100 WBC (Bld) 0.800 % 0.0-0.9 [facility] Comment on above: IG% - Immature Granu locytes (promyelocytes, myelocytes and metamyelocytes) > 1% indicates that a LEFT SHIFT is Present. MCH (RBC) [Entitic mass] 29.6 pg 27.0-32.0 [facility] Nucleated RBC/100 WBC (Bld) [Ratio] 0 % 0-5 [facility] MCHC Auto (RBC) [Mass/Vol]Or dered By: Jerrell Faith on 08-04-2023 MCHC (RBC) [Mass/Vol] 32.1 g/dL 32-36 [facility] No Panel InformationOrdered By: Jerrell Faith on 08-04-2023 Estimated Creatinine Clearance Calc 66.51 ml/min [facility] Estimated GFR (MDRD) Amer 115 mL/min >60 [facility] Comment on above: GFR Calc Estimated GFR (MDRD) Non-Af Amer 95 mL/min >60 [facility] Comment on above: Non- GFR Calc Platelets bldOrdered By: Ismael Faith on 08-04-2023 Platelets (Bld) [#/Vol] 186 10*3/uL 150-450 [facility] Serum or plasma calcium nichole urement (mass/volume)Ordered By: Jerrell Faith on 08-04-2023 Calcium [Mass/Vol] 8.9 mg/dL 8.5-10.1 [facility] Serum or plasma creatinine m easurement (mass/volume)Ordered By: Jerrell Faith on 08-04-2023 Creatinine [Mass/Vol] 0.82 mg/dL 0.70-1.30 [facility] Comment on above: The validity of the calculated GFR & GFRAA in patients over 70 years has not been determined. Clinical correlation is essential. Serum or plasma urea nitroge n measurement (mass/volume)Ordered By: Jerrell Faith on 08-04-2023 Urea nitrogen [Mass/Vol] 18 mg/dL 7-18 [facility] Thin prep Papanicolaou smear with manual screeningOrdered By: Jerrell Faith on 08-04-2023 Thin prep Papanicolaou smear with manual screening 3 5-15 [facility] Basophil percentageOrdered B y: Jerrell Faith on 08-03-2023 Basophil percentage 2.1 mg/dL 2.5-4.9 [facility] Bilirubin [Mass/Vol] 0.30 mg/dL 0.20-1.00 [facility] Comment on above: For patients on eltr ombopag therapy, use of Dimension [place] TBIL is not recommended. Protein [Mass/Vol] 5.6 g/dL 6.4-8.2 [facility] Clostridium difficile detect ion by polymerase chain reactionOrdered By: Jerrell Faith on 08-03-2023 C. difficile DNA CAMERON+probe Ql (Unsp spec) [facility] Laboratory - Chemistry and C hemistry - challengeOrdered By: Jerrell Faith on 08-03-2023 ALP [Catalytic activity/Vol] 46 U/L 45-117 [facility] ALT [Catalytic activity/Vol] 18 U/L 16-61 [facility] Globulin (S) [Mass/Vol] 2.6 g/dL 2.2-4.2 [facility] Magnesium [Mass/Vol] 1.9 mg/dL 1.6-2.6 [facility] Serum or plasma albumin nichole urement (mass/volume)Ordered By: Jerrell Faith on 08-03-2023 Albumin [Mass/Vol] 3.0 g/dL 3.2-5.0 [facility] Serum or plasma albumin/glob ulin mass ratioOrdered By: Jerrell Faith on 08-03-2023 Albumin/Globulin [Mass ratio] 1.2 {ratio} 0.9-2.4 [facility] Thin prep Papanicolaou smear with manual screeningOrdered By: Jerrell Faith on 08-03-2023 Thin prep Papanicolaou smear with manual screening 10 U/L 15-37 [facility] Blood manual differential co mment interpretation (narrative result)Ordered By: Jasmine Tan on 08-02-2023 Manual differential comment Héctor (Bld) [Interp] COMMENT [facility] Comment on above: LYMPHOPENIA. Urine Legionella pneumophila antigen detectionOrdered By: Jasmine Tan on 08-02-2023 L. pneumophila Ag Ql (U) [facility] Absolute lymphocyte countOrd ered By: Lewis Sutton on 08-01-2023 Lymphocytes Auto (Unsp spec) [#/Vol] 0.52 10*3/uL 0.83-4.51 [facility] Basophil percentageOrdered B y: Lewis Sutton on 08-01-2023 Basophils/100 WBC (Bld) 0.2 % 0-1 [facility] Chloride [Moles/Vol] 103 mmol/L 98-107 [facility] Eosinophils/100 WBC (Bld) 0.9 % 0-5 [facility] Glucose [Mass/Vol] 117 mg/dL 74-106 [facility] Comment on above: Fasting Glucose resu lt from 100 to 125 mg/dL suggests IMPAIRED HOMEOSTASIS per A.D.A. criteria. Neutrophils (Bld) [#/Vol] 7.6 10*3/uL 2.0-7.7 [facility] Neutrophils/100 WBC (Bld) 82.0 % 47-70 [facility] Potassium [Moles/Vol] 3.1 mmol/L 3.5-5.1 [facility] Sodium [Moles/Vol] 136 mmol/L 136-145 [facility] WBC (Bld) [#/Vol] 9.2 10*3/uL 4.4-11.0 [facility] Blood erythrocytes count (nu mber/volume)Ordered By: Lewis Sutton on 08-01-2023 RBC (Bld) [#/Vol] 4.78 10*6/uL 4.6-6.2 [facility] Blood hemoglobin measurement (mass/volume)Ordered By: Lewis Sutton on 08-01-2023 Hemoglobin (Bld) [Mass/Vol] 14.8 g/dL 13.0-16.5 [facility] Blood lymphocytes/100 leukoc ytesOrdered By: Lewis Sutton on 08-01-2023 Lymphocytes/100 WBC (Bld) 5.7 % 19-41 [facility] Blood manual differential co mment interpretation (narrative result)Ordered By: Lewis Sutton on 08-01-2023 Manual differential comment Héctor (Bld) [Interp] SCANNED [facility] Blood monocytes/100 leukocyt esOrdered By: Lewis Sutton on 08-01-2023 Monocytes/100 WBC (Bld) 10.3 % 0-10 [facility] Blood platelet mean volumeOr dered By: Lewis Sutton on 08-01-2023 Platelet mean volume (Bld) [Entitic vol] 11.5 fL 6.2-12.0 [facility] Determination of erythrocyte mean corpuscular volume (MCV)Ordered By: Lewis Sutton on 08-01-2023 MCV (RBC) [Entitic vol] 89.5 fL 80-94 [facility] Hematocrit Auto (Bld) [Volum e fraction]Ordered By: Lewis Sutton on 01-03-2024 Hematocrit (Bld) [Volume fraction] 42.8 % 40-54 [facility] Influenza virus A and B and SARS-CoV-2 (COVID-19) Ag panel - Upper respiratory specimOrdered By: Lewis Sutton on 08-01-2023 SARS-CoV-2 (COVID-19) RNA CAMERON+probe Ql (Resp) [facility] Laboratory - Chemistry and C hemistry - challengeOrdered By: Lewis Sutton on 08-01-2023 CO2 [Moles/Vol] 26.0 mmol/L 21.0-32.0 [facility] Natriuretic peptide B (Bld) [Mass/Vol] 198.3 pg/mL 0-100 [facility] Urea nitrogen/Creatinine [Mass ratio] 11.8 mg/mg 10-20 [facility] Laboratory - Hematology and Cell countsOrdered By: Lewis Sutton on 08-01-2023 Erythrocyte distribution width (RBC) [Entitic vol] 46.8 fL 35.1-43.9 [facility] Erythrocyte distribution width (RBC) [Ratio] 14.3 % 11.6-14.6 [facility] Immature granulocytes/100 WBC (Bld) 0.900 % 0.0-0.9 [facility] Comment on above: IG% - Immature Granu locytes (promyelocytes, myelocytes and metamyelocytes) > 1% indicates that a LEFT SHIFT is Present. MCH (RBC) [Entitic mass] 31.0 pg 27.0-32.0 [facility] Nucleated RBC/100 WBC (Bld) [Ratio] 0 % 0-5 [facility] Laboratory - Microbiology an d Antimicrobial susceptibilityOrdered By: Jasmine Tan on 08-01-2023 SARS-CoV-2 (COVID-19) RNA CAMERON+probe Ql (Unsp spec) [facility] MCHC Auto (RBC) [Mass/Vol]Or dered By: Lewis Sutton on 08-01-2023 MCHC (RBC) [Mass/Vol] 34.6 g/dL 32-36 [facility] No Panel InformationOrdered By: Lewis Sutton on 08-01-2023 D-Dimer Quantitative (PE/DVT) 0.47 FEU/ug/m 0.27-0.49 [facility] Comment on above: NORMAL D-Dimer level (<0.50) indicates no DVT or PE. Estimated Creatinine Clearance Calc 50.69 ml/min [facility] Estimated GFR (MDRD) Amer 82 mL/min >60 [facility] Comment on above: GFR Calc Estimated GFR (MDRD) Non-Af Amer 68 mL/min >60 [facility] Comment on above: Non- GFR Calc Troponin I High Sensitivity 8 pg/mL 3.0-78.0 [facility] Comment on above: Please Note: [place] t Units and Gender Specific Reference Ranges. For more information see Policy Stat Procedure [place] High Sensitivity Troponin (TNIH) and attachments. Platelets bldOrdered By: Gabby Sutton on 08-01-2023 Platelets (Bld) [#/Vol] 175 10*3/uL 150-450 [facility] Respiratory pathogens detect ion panel by molecular detection methodOrdered By: Jasmine Tan on 08-01-2023 Respiratory pathogens DNA and RNA panel CAMERON+probe (Resp) [facility] Serum or plasma calcium nichole urement (mass/volume)Ordered By: Lewis Sutton on 08-01-2023 Calcium [Mass/Vol] 8.8 mg/dL 8.5-10.1 [facility] Serum or plasma creatinine m easurement (mass/volume)Ordered By: Lewis Sutton on 08-01-2023 Creatinine [Mass/Vol] 1.10 mg/dL 0.70-1.30 [facility] Comment on above: The validity of the calculated GFR & GFRAA in patients over 70 years has not been determined. Clinical correlation is essential. Serum or plasma urea nitroge n measurement (mass/volume)Ordered By: Lewis Sutton on 08-01-2023 Urea nitrogen [Mass/Vol] 13 mg/dL 7-18 [facility] Serum procalcitonin measurem entOrdered By: Jasmine Tan on 08-01-2023 Procalcitonin [Mass/Vol] 0.07 ng/mL 0.00-0.09 [facility] Comment on above: A procalcitonin (PCT [...] prep Papanicolaou smear with manual screening 12-11 [facility] CBC W Auto Differential pane l (Bld)on 06-28-2023 Basophils (Bld) [#/Vol] 0.05 10*3/uL <0.11 k/uL [facility] Basophils/100 WBC (Bld) 0.5 % [facility] Differential cell count method Nom (Bld) Auto [facility] Eosinophils (Bld) [#/Vol] 0.29 10*3/uL <0.46 k/uL [facility] Eosinophils/100 WBC (Bld) 2.6 % [facility] Erythrocyte distribution width (RBC) [Ratio] 13.9 % 11.5 - 15.0 % [facility] Hematocrit (Bld) [Volume fraction] 50.0 % 39.0 - 51.0 % [facility] Hemoglobin (Bld) [Mass/Vol] 16.7 g/dL 13.0 - 17.0 g/dL [facility] Immature granulocytes (Bld) [#/Vol] 0.10 10*3/uL High <0.10 k/uL [facility] Immature granulocytes/100 WBC (Bld) 0.9 % [facility] Lymphocytes (Bld) [#/Vol] 0.81 10*3/uL Low 1.00 - 4.00 k/uL [facility] Lymphocytes/100 WBC (Bld) 7.4 % [facility] MCH (RBC) [Entitic mass] 31.0 pg 26.0 - 34.0 pg [facility] MCHC (RBC) [Mass/Vol] 33.4 g/dL 30.5 - 36.0 g/dL [facility] MCV (RBC) [Entitic vol] 92.9 fL 80.0 - 100.0 fL [facility] Monocytes (Bld) [#/Vol] 0.99 10*3/uL High <0.87 k/uL [facility] Monocytes/100 WBC (Bld) 9.0 % [facility] Neutrophils (Bld) [#/Vol] 8.78 10*3/uL High 1.45 - 7.50 k/uL [facility] Neutrophils/100 WBC (Bld) 79.6 % [facility] Nucleated RBC (Bld) [#/Vol] <0.01 k/uL [facility] Nucleated RBC/100 WBC (Bld) [Ratio] 0.0 /100 WBC [facility] Platelet mean volume (Bld) [Entitic vol] 11.6 fL 9.0 - 12.7 fL [facility] Platelets (Bld) [#/Vol] 229 10*3/uL 150 - 400 k/uL [facility] RBC (Bld) [#/Vol] 5.38 10*6/uL 4.20 - 6.00 m/uL [facility] WBC (Bld) [#/Vol] 11.02 10*3/uL High 3.70 - 11.00 k/uL [facility] Comprehensive metabolic 2000 panelon 06-28-2023 Albumin [Mass/Vol] 4.3 g/dL 3.9 - 4.9 g/dL [facility] ALP [Catalytic activity/Vol] 53 U/L 38 - 113 U/L [facility] ALT [Catalytic activity/Vol] 26 U/L 10 - 54 U/L [facility] Anion gap [Moles/Vol] 9 mmol/L 9 - 18 mmol/L [facility] AST [Catalytic activity/Vol] 21 U/L 14 - 40 U/L [facility] Bilirubin [Mass/Vol] 1.1 mg/dL 0.2 - 1 .3 mg/dL [facility] Calcium [Mass/Vol] 9.8 mg/dL 8.5 - 10. 2 mg/dL [facility] Chloride [Moles/Vol] 103 mmol/L 97 - 10 5 mmol/L [facility] CO2 [Moles/Vol] 27 mmol/L 22 - 30 mmol/L [facility] Creatinine [Mass/Vol] 1.11 mg/dL 0.73 - 1.22 mg/dL [facility] Estimated Glomerular Filtration Rate 65 mL/min/1.73m >=60 mL/min/1.7 3m [facility] Glucose [Mass/Vol] 94 mg/dL 74 - 99 mg/dL [facility] Potassium [Moles/Vol] 4.1 mmol/L 3.7 - 5.1 mmol/L [facility] Protein [Mass/Vol] 6.3 g/dL 6.3 - 8.0 g/dL [facility] Sodium [Moles/Vol] 139 mmol/L 136 - 144 mmol/L [facility] Urea nitrogen [Mass/Vol] 16 mg/dL 9 - 24 mg/dL [facility] CTA ABD/PEL W IVCONon 2022 [facility] XR LUMBAR GENERAL 3V AP/LAT/ L5-S1on 01-31-2023 [facility] XR Lumbar spine 3 Viewson IMPRESSION: NO EVIDE NCE OF FRACTURE Floor Surfacer: GINNA Transcribe Date/Time: Jan 31 2023 11:11A Dictated by : RIVERA OLIVAS MD This examination was interpreted and the report reviewed and electronically signed by: RIVERA OLIVAS MD on Jan 31 2023 11:13AM [facility] DIVISION OF RADIOLOGY * * *Final Report* [...] noted. IMPRESSION IMPRESSION: NO EVIDENCE OF FRACTURE Floor Surfacer: GINNA Transcribe Date/Time: Jan 31 2023 11:11A Dictated by : RIVERA OLIVAS MD This examination was interpreted and the report reviewed and electronically signed by: RIVERA OLIVAS MD on Jan 31 2023 11:13AM EST [facility] Radiology Study observation (narrative) [facility] XR Lumbar spine 3 ViewsOrder ed By: [facility] Provider on 01-31-2023 [facility] UA DIP, URINE (POC)on 2022 BILIRUBIN UA (POCT) Negative Negative [facility] CLARITY UA (POCT) Clear [facility] COLOR UA (POCT) Yellow [facility] GLUCOSE UA (POCT) Negative Negative mg/dL [facility] HEMOGLOBIN/BLOOD UA (POCT) Negative Negative [facility] KETONE UA (POCT) Negative Negative mg/dL [facility] LEUKOCYTES UA (POCT) Negative Negative [facility] NITRITE UA (POCT) Negative Negative [facility] PH UA (POCT) 5.5 4.5 - 8.0 [facility] Protein Ql (U) Negative Negative mg/dL [facility] SPECIFIC GRAVITY UA (POCT) 1.015 1.005 - 1.030 [facility] UROBILINOGEN UA (POCT) 0.2 E.U./dL Stephany l E.U./dL [facility] Office Visit: PAD, recheck diane jocelynradha siteon 05-31-2017 Documentation of current medications (procedure) Done Invalid Interpretation Code [facility] Work Phone: Fall risk assessment No Invalid Interpretation Code [facility] [employer] Work Phone: Tobacco smoking status NHIS Never Invalid Interpretation Code [facility] [employer] Work Phone: Tobacco use [facility] Former smoker Invalid Interpretation Code [facility] [employer] Work Phone: Lab Report: Basic Metabolic Profile (BMP)on 05-18-2017 Anion gap 9 mmol/L Invalid Interpretation Code -15 [facility] [employer] Work Phone: Anion gap 4 molar conc 9 Invalid Interpretation Code 15 [facility] [employer] Work Phone: Calcium mass conc 8.8 mg/dL Invalid Interpretation Code 8.5-10.1 [facility] [employer] Work Phone: Chloride molar conc 108 mmol/L High 98-107 [facility] [employer] Work Phone: CO2 23.0 mmol/L Invalid Interpretation Code 21.0-32.0 [facility] [employer] Work Phone: CO2 ppres (BldV) 23.0 mmol/L Invalid Interpretation Code 21.0-32.0 [facility] [employer] Work Phone: Creatinine mass conc 0.80 mg/dL Invalid Interpretation Code 0.70-1.30 [facility] [employer] Work Phone: eGFR (non-black) 120 mL/min/{1.73_m2} Invalid Interpretation Code >60 [facility] [employer] Work Phone: EST GFR - AA 120 mL/min Invalid Interpretation Code >60 [facility] [employer] Work Phone: GFR/1.73 sq M predicted among non-blacks MDRD vol rate/area (S/P/Bld) 99 mL/min/{1.73_m2} Invalid Interpretation Code >60 [facility] [employer] Work Phone: Glucose mass conc 120 mg/dL High 70-110 [facility] [employer] Work Phone: Potassium molar conc 3.6 mmol/L Invalid Interpretation Code 3.5-5.1 [facility] [employer] Work Phone: Sodium molar conc 140 mmol/L Invalid Interpretation Code 136-145 [facility] [employer] Work Phone: Urea nitrogen mass conc 13 mg/dL Invalid Interpretation Code 7-18 [facility] [employer] Work Phone: Urea nitrogen/Creatinine mass ratio 16.3 RATIO Invalid Interpretation Code 10-20 [facility] Work Phone: Office Visit: [facility] 05-08-20 17 Documentation of current medications (procedure) Done Invalid Interpretation Code [facility] [employer] Work Phone: Fall risk assessment No Invalid Interpretation Code [facility] [employer] Work Phone: Protein mass conc Done Invalid Interpretation Code [facility] [employer] Work Phone: Tobacco smoking status NHIS Never Invalid Interpretation Code [facility] [employer] Work Phone: Tobacco smoking status NHIS Former smoker Invalid Interpretation Code [facility] [employer] Work Phone: Tobacco use [facility] Former smoker Invalid Interpretation Code [facility] [employer] Work Phone: Vital Signs Date Time Vital Sign Value Performing Clinician Facility 10-16-2024 08:56-0400 Body height 177.[address] Neo Tejeda DO Work Phone: [facility] 10-16-2024 08:56-0400 Body mass index (BMI) [Ratio] 23.8 kg/m2 Dr. Neo Tejeda DO Work Phone: [facility] 10-16-2024 08:56-0400 Body temperature 97.3 [degF] Dr. Neo Tejeda DO Work Phone: [facility] 10-16-2024 08:56-0400 Body weight 75.[address] Neo Tejeda DO Work Phone: [facility] 10-16-2024 08:56-0400 Diastolic blood pressure 65 mm[Hg] Dr. Neo Tejeda DO Work Phone: [facility] 10-16-2024 08:56-0400 Heart rate 73 /min Dr. Neo Tejeda DO Work Phone: [facility] 10-16-2024 08:56-0400 Respiratory rate 20 /min Dr. Neo Tejeda DO Work Phone: [facility] 10-16-2024 08:56-0400 SaO2% (BldA) [Mass fraction] 90 % Dr. Neo Tejeda DO Work Phone: [facility] 10-16-2024 08:56-0400 Systolic blood pressure 121 mm[Hg] Dr. Neo Tejeda DO Work Phone: [facility] 09-19-2024 14:55-0500 Body mass index (BMI) [Ratio] 22.96 kg/m2 Brigitte Suppan [employer] Work Phone: [facility] 09-19-2024 14:55-0500 Body temperature 98.71 [degF] Brigitte Suppan [employer] TECHNICIAN Work Phone: [facility] 09-19-2024 14:55-0500 Body weight 72.58 kg Brigitte Suppan [employer] TECHNICIAN Work Phone: [facility] 09-19-2024 14:55-0500 Diastolic blood pressure 62 mm[Hg] Brigitte Suppan [employer] TECHNICIAN Work Phone: [facility] 09-19-2024 14:55-0500 Heart rate 80 /min Brigitte Suppan [employer] TECHNICIAN Work Phone: [facility] 09-19-2024 14:55-0500 SaO2% (BldA) [Mass fraction] 90 % Brigitte Suppan [employer] TECHNICIAN Work Phone: [facility] Comment on above: 3 liters of oxygen 09-19-2024 14:55-0500 Systolic blood pressure 128 mm[Hg] Brigitte Suppan [employer] TECHNICIAN Work Phone: [facility] 09-15-2024 15:00-0500 Body temperature 97.6 [degF] Dr. Neo Tejeda DO Work Phone: [facility] 09-15-2024 15:00-0500 Diastolic blood pressure 71 mm[Hg] Dr. Neo Tejeda DO Work Phone: 6(975)017-429237 [place] [address] 09-15-2024 15:00-0500 Heart rate 82 /min Dr. Neo Tejeda DO Work Phone: 7(787)176-655337 [place] [address] 09-15-2024 15:00-0500 Respiratory rate 16 /min Dr. Neo Tejeda DO Work Phone: 9(548)743-874537 [place] [address] 09-15-2024 15:00-0500 SaO2% (BldA) [Mass fraction] 93 % Dr. Neo Tejeda DO Work Phone: 8(674)644-725837 [place] [address] 09-15-2024 15:00-0500 Systolic blood pressure 140 mm[Hg] Dr. Noe Tejeda DO Work Phone: 0(601)518-390747 [place] [address] 09-15-2024 10:09-0500 Body weight 73.[address] Neo Tejeda DO Work Phone: 8(055)781-237137 [place] [address] 09-15-2024 09:00-0500 Inhaled oxygen flow rate 3 L/min Dr. Neo Tejeda DO Work Phone: 8(862)043-594637 [place] [address] 09-15-2024 03:59-0500 Body mass index (BMI) [Ratio] 23.1 kg/m2 Dr. Neo Tejeda DO Work Phone: 7(708)027-423937 [place] [address] 09-12-2024 09:19-0500 Inhaled oxygen concentration 34 % Dr. Neo Tejeda DO Work Phone: [facility] 03-27-2024 07:47-0400 Body mass index (BMI) [Ratio] 21.81 kg/m2 Brigitte Segal [employer] TECHNICIAN Work Phone: [facility] 03-27-2024 07:47-0400 Body weight 68.95 kg Brigitte Segal [employer] TECHNICIAN Work Phone: [facility] 03-27-2024 07:47-0400 Diastolic blood pressure 67 mm[Hg] Brigitte Suppan [employer] TECHNICIAN Work Phone: [facility] 03-27-2024 07:47-0400 Heart rate 63 /min Brigitte Suppan [employer] TECHNICIAN Work Phone: [facility] 03-27-2024 07:47-0400 Respiratory rate 16 /min Brigitte Suppan [employer] TECHNICIAN Work Phone: [facility] 03-27-2024 07:47-0400 SaO2% (BldA) [Mass fraction] 94 % Brigitte Suppan [employer] TECHNICIAN Work Phone: [facility] 03-27-2024 07:47-0400 Systolic blood pressure 126 mm[Hg] Brigitte Suppan [employer] TECHNICIAN Work Phone: [facility] 02-25-2024 08:22-0400 Body mass index (BMI) [Ratio] 21.81 kg/m2 Brigitte Suppan [employer] TECHNICIAN Work Phone: [facility] 02-25-2024 08:22-0400 Body weight 68.95 kg Brigitte Suppan [employer] TECHNICIAN Work Phone: [facility] 02-25-2024 08:22-0400 Diastolic blood pressure 70 mm[Hg] Brigitte Suppan [employer] TECHNICIAN Work Phone: [facility] 02-25-2024 08:22-0400 Heart rate 60 /min Brigitte Suppan [employer] TECHNICIAN Work Phone: [facility] 02-25-2024 08:22-0400 Respiratory rate 16 /min Brigitte Suppan [employer] TECHNICIAN Work Phone: [facility] 02-25-2024 08:22-0400 SaO2% (BldA) [Mass fraction] 94 % Brigitte Suppan [employer] TECHNICIAN Work Phone: [facility] 02-25-2024 08:22-0400 Systolic blood pressure 148 mm[Hg] Brigitte Suppan [employer] TECHNICIAN Work Phone: [facility] 12-25-2023 08:53-0400 Body mass index (BMI) [Ratio] 22.81 kg/m2 NA Durbin PA-C Work Phone: [facility] 12-25-2023 08:53-0400 Body weight 72.12 kg NA Durbin PA-C Work Phone: [facility] 12-25-2023 08:53-0400 Diastolic blood pressure 68 mm[Hg] NA Durbin PA-C Work Phone: [facility] 12-25-2023 08:53-0400 Heart rate 61 /min NA Durbin PA-C Work Phone: [facility] 12-25-2023 08:53-0400 Respiratory rate 16 /min NA Durbin PA-C Work Phone: [facility] 12-25-2023 08:53-0400 SaO2% (BldA) [Mass fraction] 95 % NA Durbin PA-C Work Phone: [facility] 12-25-2023 08:53-0400 Systolic blood pressure 120 mm[Hg] NA Durbin PA-C Work Phone: [facility] 09-25-2023 09:07-0500 Body weight 72.12 kg NA Durbin PA-C Work Phone: [facility] 09-25-2023 09:07-0500 Diastolic blood pressure 62 mm[Hg] NA Durbin PA-C Work Phone: [facility] 09-25-2023 09:07-0500 Heart rate 66 /min NA Durbin PA-C Work Phone: [facility] 09-25-2023 09:07-0500 Respiratory rate 16 /min NA Durbin PA-C Work Phone: [facility] 09-25-2023 09:07-0500 SaO2% (BldA) [Mass fraction] 92 % NA Durbin PA-C Work Phone: [facility] 09-25-2023 09:07-0500 Systolic blood pressure 110 mm[Hg] NA Durbin PA-C Work Phone: [facility] 08-04-2023 12:46-0500 SaO2% (BldA) [Mass fraction] 98 % PA NA Durbin PA Work Phone: [facility] 08-04-2023 10:58-0500 Heart rate 75 /min PA NA Durbin PA Work Phone: [facility] 08-04-2023 10:58-0500 Respiratory rate 16 /min PA NA Durbin PA Work Phone: [facility] 08-04-2023 09:00-0500 Body temperature 97.2 [degF] PA NA Durbin PA Work Phone: [facility] 08-04-2023 09:00-0500 Diastolic blood pressure 62 mm[Hg] PA NA Durbin PA Work Phone: [facility] 08-04-2023 09:00-0500 Systolic blood pressure 138 mm[Hg] PA NA Durbin PA Work Phone: [facility] 08-04-2023 07:20-0500 Inhaled oxygen flow rate 4 L/min PA NA Durbin PA Work Phone: [facility] 08-04-2023 03:07-0500 Body mass index (BMI) [Ratio] 22.6 kg/m2 PA NA Durbin PA Work Phone: [facility] 08-04-2023 03:07-0500 Body weight 71.4 kg PA NA Durbin PA Work Phone: [facility] 08-02-2023 13:52-0500 Body height 177.8 cm PA NA Durbin PA Work Phone: [facility] 08-01-2023 20:53-0500 Inhaled oxygen concentration 92 % PA NA Durbin PA Work Phone: [facility] 08-01-2023 16:17-0500 Diastolic blood pressure 76 mm[Hg] [facility] 08-01-2023 16:17-0500 Heart rate 77 /min [facility] 08-01-2023 16:17-0500 SaO2% (BldA) [Mass fraction] 91 % [facility] 08-01-2023 16:17-0500 Systolic blood pressure 150 mm[Hg] [facility] 08-01-2023 16:16-0500 Inhaled oxygen flow rate 5 L/min [facility] 08-01-2023 16:16-0500 Respiratory rate 24 /min [facility] 08-01-2023 12:44-0500 Body height 177.8 cm [facility] 08-01-2023 12:44-0500 Body mass index (BMI) [Ratio] 23.3 kg/m2 [facility] 08-01-2023 12:44-0500 Body temperature 97.9 [degF] [facility] 08-01-2023 12:44-0500 Body weight 73.66 kg [facility] 06-28-2023 08:57-0500 Body weight 70.94 kg NA Durbin PA-C Work Phone: [facility] 06-28-2023 08:57-0500 Diastolic blood pressure 70 mm[Hg] NA Durbin PA-C Work Phone: [facility] 06-28-2023 08:57-0500 Heart rate 60 /min NA Durbin PA-C Work Phone: [facility] 06-28-2023 08:57-0500 Respiratory rate 16 /min NA Durbin PA-C Work Phone: [facility] 06-28-2023 08:57-0500 SaO2% (BldA) [Mass fraction] 97 % NA Durbin PA-C Work Phone: [facility] 06-28-2023 08:57-0500 Systolic blood pressure 122 mm[Hg] NA Durbin PA-C Work Phone: [facility] 05-25-2023 11:07-0400 Body temperature 98.1 [degF] Jair Marvin MD Work Phone: [facility] 05-25-2023 11:07-0400 Body weight 71.67 kg Jair Marvin MD Work Phone: [facility] 05-25-2023 11:07-0400 Diastolic blood pressure 69 mm[Hg] Jair Mravin MD Work Phone: [facility] 05-25-2023 11:07-0400 Heart rate 70 /min Jair Marvin MD Work Phone: [facility] 05-25-2023 11:07-0400 Respiratory rate 18 /min Jair Marvin MD Work Phone: [facility] 05-25-2023 11:07-0400 SaO2% (BldA) [Mass fraction] 93 % Jair Marvin MD Work Phone: [facility] 05-25-2023 11:07-0400 Systolic blood pressure 132 mm[Hg] Jair Marvin MD Work Phone: [facility] 02-08-2023 09:28-0400 Body weight 71.67 kg NA Durbin PA-C Work Phone: [facility] 02-08-2023 09:28-0400 Diastolic blood pressure 80 mm[Hg] NA Durbin PA-C Work Phone: [facility] 02-08-2023 09:28-0400 Heart rate 56 /min NA Durbin PA-C Work Phone: [facility] 02-08-2023 09:28-0400 Respiratory rate 16 /min NA Durbin PA-C Work Phone: [facility] 02-08-2023 09:28-0400 SaO2% (BldA) [Mass fraction] 96 % NA Durbin PA-C Work Phone: [facility] 02-08-2023 09:28-0400 Systolic blood pressure 148 mm[Hg] NA Durbin PA-C Work Phone: [facility] 01-31-2023 10:43-0400 Body temperature 97.9 [degF] Rebekah Athy PA-C Work Phone: [facility] 01-31-2023 10:43-0400 Body weight 73.57 kg Rebekah Athy PA-C Work Phone: [facility] 01-31-2023 10:43-0400 Diastolic blood pressure 86 mm[Hg] Rebekah Athy PA-C Work Phone: [facility] 01-31-2023 10:43-0400 Heart rate 58 /min Rebekah Athy PA-C Work Phone: [facility] 01-31-2023 10:43-0400 Respiratory rate 18 /min Rebekah Athy PA-C Work Phone: [facility] 01-31-2023 10:43-0400 SaO2% (BldA) [Mass fraction] 97 % Rebekah Athy PA-C Work Phone: [facility] 01-31-2023 10:43-0400 Systolic blood pressure 164 mm[Hg] Rebekah Athy PA-C Work Phone: [facility] 11-27-2022 14:57-0400 Body weight 73.03 kg NA Durbin PA-C Work Phone: [facility] 11-27-2022 14:57-0400 Diastolic blood pressure 68 mm[Hg] NA Durbin PA-C Work Phone: [facility] 11-27-2022 14:57-0400 Heart rate 57 /min NA Durbin PA-C Work Phone: [facility] 11-27-2022 14:57-0400 SaO2% (BldA) [Mass fraction] 96 % NA Durbin PA-C Work Phone: [facility] 11-27-2022 14:57-0400 Systolic blood pressure 130 mm[Hg] NA Durbin PA-C Work Phone: [facility] 06-21-2022 23:01-0500 Heart rate 85 /min PA NA Durbin PA Work Phone: [facility] Work Phone: 06-21-2022 23:01-0500 Respiratory rate 15 /min PA NA Durbin PA Work Phone: [facility] Work Phone: 06-21-2022 23:01-0500 SaO2% (BldA) [Mass fraction] 98 % PA NA Durbin PA Work Phone: [facility] Work Phone: 06-21-2022 21:53-0500 Body height 177.8 cm PA NA Durbin PA Work Phone: [facility] Work Phone: 06-21-2022 21:53-0500 Body mass index (BMI) [Ratio] 22.9 kg/m2 PA NA Durbin PA Work Phone: [facility] Work Phone: 06-21-2022 21:53-0500 Body temperature 97.8 [degF] PA NA Durbin PA Work Phone: [facility] Work Phone: 06-21-2022 21:53-0500 Body weight 72.57 kg PA NA Durbin PA Work Phone: [facility] Work Phone: 06-21-2022 21:53-0500 Diastolic blood pressure 80 mm[Hg] PA NA Durbin PA Work Phone: [facility] Work Phone: 06-21-2022 21:53-0500 Systolic blood pressure 166 mm[Hg] PA NA Durbin PA Work Phone: [facility] Work Phone: 02-08-2022 12:26-0400 Body height 177.[address] Brian Mackenzie III Work Phone: [facility] Work Phone: 02-08-2022 12:26-0400 Body mass index (BMI) [Ratio] 23.5 kg/m2 Dr. Brian Mackenzie III Work Phone: [facility] Work Phone: 02-08-2022 12:26-0400 Body weight 74.[address] Brian Mackenzie III Work Phone: [facility] Work Phone: 02-08-2022 12:26-0400 Diastolic blood pressure 69 mm[Hg] Dr. Brian Mackenzie III Work Phone: [facility] Work Phone: 02-08-2022 12:26-0400 Heart rate 56 /min Dr. Brian Mackenzie III Work Phone: [facility] Work Phone: 02-08-2022 12:26-0400 Respiratory rate 16 /min Dr. Brian Mackenzie III Work Phone: [facility] Work Phone: 02-08-2022 12:26-0400 SaO2% (BldA) [Mass fraction] 96 % Dr. Brian Mackenzie III Work Phone: [facility] Work Phone: 02-08-2022 12:26-0400 Systolic blood pressure 125 mm[Hg] Dr. Brian Mackenzie III Work Phone: [facility] Work Phone: 05-31-2017 08:40-0400 BMI (Body Mass Index) 23.11 kg/m2 Quan Mackenzie MD [facility] Work Phone: 05-31-2017 08:40-0400 Body Temperature 97.9 [degF] Quan Mackenzie MD [facility] Work Phone: 05-31-2017 08:40-0400 BP Diastolic 70 mm[Hg] Quan Mackenzie MD [facility] Work Phone: 05-31-2017 08:40-0400 BP Systolic 150 mm[Hg] Quan Mackenzie MD [facility] Work Phone: 05-31-2017 08:40-0400 Height 182.88 cm Quan Mackenzie MD [facility] Work Phone: 05-31-2017 08:40-0400 Pulse (Heart Rate) 74 /min Quan Mackenzie MD [facility] Work Phone: 05-31-2017 08:40-0400 Respiratory Rate 20 /min Quan Mackenzie MD [facility] Work Phone: 05-31-2017 08:40-0400 Weight 77.29 kg Quan Mackenzie MD [facility] Work Phone: 05-08-2017 14:55-0400 BMI (Body Mass Index) 23.08 kg/m2 Quan Mackenzie MD [facility] Work Phone: 05-08-2017 14:55-0400 Body Temperature 97.5 [degF] Quan Mackenzie MD [facility] Work Phone: 05-08-2017 14:55-0400 BP Diastolic 76 mm[Hg] Quan Mackenzie MD [facility] Work Phone: 05-08-2017 14:55-0400 BP Systolic 175 mm[Hg] Quan Mackenzie MD [facility] Work Phone: 05-08-2017 14:55-0400 Height 182.88 cm Quan Mackenzie MD [facility] Work Phone: 05-08-2017 14:55-0400 Pulse (Heart Rate) 67 /min Quan Mackenzie MD [facility] Work Phone: 05-08-2017 14:55-0400 Respiratory Rate 20 /min Quan Mackenzie MD [facility] Work Phone: 05-08-2017 14:55-0400 Weight 77.2 kg Quan Mackenzie MD [facility] Work Phone: Encounters Encounter Date Encounter Type Care Provider Facility Start: 10-31-2024 End: 10-31-2024 Telephone encounter Brigitte Segal FINISHER [employer]QUALITY [employer]OL LAB TECHNICIAN Work Phone: [facility] Comment on above: [id number]; Initial Consu lt Start: 10-31-2024 ambulatory Brigitte Suppan Facil ity:[facility] Start: 10-27-2024 End: 10-27-2024 Telephone encounter Brigitte Segal APRN.QUALITY CONTROL LAB TECHNICIAN Work Phone: [facility] Comment on above: Orders; patient POC Start: 10-16-2024 End: 10-16-2024 Patient encounter procedure Kalyn Taylor [facility] Work Phone: Start: 10-16-2024 End: 10-16-2024 ambulatory Brigitte Suppan Facility:[facility] Start: 10-15-2024 End: 10-30-2024 Telephone encounter rBigitte Segal APRN.QUALITY CONTROL LAB TECHNICIAN Work Phone: [facility] Comment on above: Patient Update Start: 10-03-2024 End: 10-03-2024 Telephone encounter Brigitte Segal APRN.QUALITY CONTROL LAB TECHNICIAN Work Phone: [facility] [place] Comment on above: Oxygen; FYI-No Actio n Needed (/) Start: 09-19-2024 End: 09-19-2024 ambulatory BRIGITTE Lemos SUPPHEAVENLY Facility:[facility] Start: 09-19-2024 End: 09-19-2024 Office outpatient visit 25 minutes Brigitte Segal APRN.QUALITY CONTROL LAB TECHNICIAN Work Phone: [facility] Comment on above: Chronic insomnia (Pr imary Dx); Benign prostatic hyperplasia with nocturia; Screening for depression; Hyperlipidemia LDL goal <100; Essential hypertension, benign; Parkinson's disease without dyskinesia, unspecified whether manifestations fluctuate (HCC); 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; Acute respiratory failure with hypoxia (HCC) Start: 09-19-2024 End: 09-19-2024 Telephone encounter Brigitte Segal APRN.QUALITY CONTROL LAB TECHNICIAN Work Phone: [facility] Comment on above: Home Health PT Plan of Care Start: 09-17-2024 End: 09-22-2024 Telephone encounter Brigitte Segal APRN.QUALITY CONTROL LAB TECHNICIAN Work Phone: [facility] Comment on above: [facility] Plan of Care Start: 09-15-2024 End: 09-15-2024 Telephone encounter Brigitte Segal FINISHER [employer].QUALITY CONTROL LAB TECHNICIAN Work Phone: [facility] Comment on above: Home Health Orders Start: 09-15-2024 Non-patient / Non-visit Dr. John Soliz [facility] Work Phone: Start: 09-14-2024 Non-patient / Non-visit Dr. Lester Eduardo [facility] Work Phone: Start: 09-13-2024 Non-patient / Non-visit [facility] Lester Eduardo [facility] Work Phone: Start: 09-12-2024 Non-patient / Non-visit [facility]. Lester Eduardo [facility] Work Phone: Start: 09-11-2024 Non-patient / Non-visit [facility]. Lester Eduardo [facility] Work Phone: Start: 09-10-2024 Non-patient / Non-visit [facility]. Lester Eduardo [facility] Work Phone: Start: 09-09-2024 End: 09-09-2024 Telephone encounter Brigitte Segal FINISHER [employer].QUALITY CONTROL LAB TECHNICIAN Work Phone: [facility] Start: 09-09-2024 Non-patient / Non-visit Dr. Lester Eduardo [facility] Work Phone: Start: 09-08-2024 ambulatory Brigitte Segal Facil ity:[facility] Start: 09-08-2024 Non-patient / Non-visit [facility] Elmer [facility] Start: 09-08-2024 Non-patient / Non-visit Dr. Lester Eduardo [facility] Work Phone: Start: 09-07-2024 Non-patient / Non-visit Dr. Jerrell badillo [facility] Work Phone: Start: 09-07-2024 ambulatory Lester Perdomo Facility:[facility] Start: 09-07-2024 End: 09-15-2024 Evaluation and management of inpatient Jerrell Faith Facility:[facility] Start: 03-27-2024 End: 03-27-2024 ambulatory BRIGITTE A SUPPAN Facility:[facility] Start: 03-27-2024 End: 03-27-2024 Office outpatient visit 15 minutes Brigitte A Suppan FINISHER [employer]QUAL[employer]OL LAB TECHNICIAN Work Phone: [facility] Comment on above: S/P primary angiopla sty with coronary stent; PAD (peripheral artery disease) (HCC); Hyperlipidemia LDL goal <100; Anxiety state; Benign prostatic hyperplasia with nocturia; Essential hypertension, benign; Left sided abdominal pain Start: 03-13-2024 Refill Radha Salgado on PA-C Work Phone: [facility] Comment on above: Refill Request Start: 02-28-2024 ambulatory Radha KING Fac ility:[facility] Start: 02-26-2024 Telephone encounter Brigitte A Suppan FINISHER BR[employer].QUALITY CONTROL LAB TECHNICIAN Work Phone: [facility] Start: 02-25-2024 End: 02-25-2024 ambulatory BRIGITTE A SUPPAN Facility:[facility] Start: 02-25-2024 End: 02-25-2024 Office outpatient visit 15 minutes Brigitte A Suppan FINISHER [employer].QUALITY CONTROL LAB TECHNICIAN Work Phone: [facility] Comment on above: Left sided abdominal pain (Primary Dx); Essential hypertension, benign Start: 02-19-2024 End: 02-19-2024 ambulatory Radha KING Facility:[facility] Start: 02-09-2024 End: 02-09-2024 Emergency department patient visit Radha KING Facility:[facility] Start: 12-31-2023 Refill Radha Salgado on PA-C Work Phone: [facility] Comment on above: Refill Request Start: 12-28-2023 Telephone encounter Walter Gomez MD Work Phone: [facility] Comment on above: Results Start: 12-27-2023 End: 12-27-2023 ambulatory CASPER DURBIN Facility:[facility] Start: 12-25-2023 End: 12-25-2023 ambulatory CASPER JUSTIN DURBIN Facility:[facility] Start: 12-25-2023 End: 12-25-2023 Patient encounter procedure Radha Durbin PA-C Work Phone: [facility] Comment on above: 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); S/P [...] 12-13-2023 Refill Radha benjamin PA-C Work Phone: [facility] Comment on above: Refill Request Start: 09-25-2023 End: 09-25-2023 Patient encounter procedure Radha Durbin PA-C Work Phone: [facility] Comment on above: 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; S/P primary angioplasty [...] Non-patient / Non-visit CHRISTINE KING Work Phone: [facility] Work Phone: Start: 08-03-2023 Non-patient / Non-visit PA NA Durbin PA Work Phone: [facility] Work Phone: Start: 08-02-2023 Non-patient / Non-visit PA NANDA Durbin PA Work Phone: [facility] Work Phone: Start: 08-01-2023 End: 08-04-2023 Evaluation and management of inpatient PA NANDA Durbin PA Work Phone: [facility] Work Phone: Start: 08-01-2023 Evaluation and manag ement of inpatient [facility] Work Phone: Start: 07-10-2023 Refill Radha Salgado on PA-C Work Phone: [facility] [place] Comment on above: Refill Request Start: 07-02-2023 Telephone encounter Radha WareJustin Durbin PA-C Work Phone: [facility] Start: 06-28-2023 End: 06-28-2023 Patient encounter procedure Radha Durbin PA-C Work Phone: [facility] Comment on above: 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); S/P primary angioplasty with coronary stent; Angina pectoris ([facility]); Atherosclerosis of aorta ([facility]); Essential hypertension, benign; Hyperlipidemia LDL goal <100; PAD (peripheral artery disease) ([facility]); Parkinson's disease without dyskinesia, with fluctuating manifestations; Hyperbilirubinemia; Gastroesophageal reflux disease, unspecified whether esophagitis present; Benign prostatic hyperplasia with nocturia; Anxiety state; Diarrhea, unspecified type Start: 06-18-2023 Refill Radha Salgado on PA-C Work Phone: [facility] Comment on above: Refill Request Start: 05-25-2023 End: 05-25-2023 Patient encounter procedure Jair Marvin MD Work Phone: [facility] Comment on above: Abrasion of anterior right lower leg, initial encounter (Primary Dx) Start: 05-14-2023 Telephone encounter Radha Justin Durbin PA-C Work Phone: [facility] Comment on above: Results Start: 05-11-2023 Telephone encounter Radha Justin Durbin PA-C Work Phone: [facility] Comment on above: Results Start: 05-11-2023 End: 05-11-2023 Subsequent hospital visit by physician [facility] (I-Stat) Work Phone: [facility] Comment on above: Atherosclerosis of a ken (HCC) [I70.0] Start: 02-08-2023 End: 02-08-2023 Patient encounter procedure Radha Justin Durbin PA-C Work Phone: [facility] Comment on above: Piriformis syndrome, left (Primary Dx); Somatic dysfunction of left sacroiliac joint Start: 01-31-2023 End: 01-31-2023 Subsequent hospital visit by physician Xr [facility] Work Phone: Radiology Comment on above: Back pain of lumbar region with sciatica [M54.40] Start: 01-31-2023 End: 01-31-2023 Patient encounter procedure Rebekah Salazar PA-C Work Phone: [facility] Comment on above: Back pain of lumbar region with sciatica (Primary Dx) Start: 01-12-2023 Refill Walter Gomez MD Work Phone: [facility] Comment on above: Refill Request Start: 11-30-2022 Telephone encounter Radha Justin Durbin PA-C Work Phone: [facility] Comment on above: Results Start: 11-27-2022 End: 11-27-2022 Patient encounter procedure Radha Justin Durbin PA-C Work Phone: [facility] Comment on above: S/P primary angiopla [...] Refill Radha Salgado on PA-C Work Phone: [facility] Comment on above: Refill Request Start: 07-07-2022 Refill Radha Justin Salgado on PA-C Work Phone: [facility] Comment on above: Refill Request Start: 06-21-2022 End: 06-21-2022 Emergency department patient visit CHRISTINE KING Work Phone: [facility]-Emergency Department Start: 04-10-2022 Refill Radha Justin Salgado on PA-C Work Phone: [facility] Comment on above: Refill Request Start: 02-27-2022 Non-patient / Non-visit Dr. Fr georgina Mackenzie III Work Phone: [facility] Start: 02-27-2022 End: 02-27-[address] Brian Mackenzie III Work Phone: [facility] Start: 02-08-2022 End: 02-08-[address] Brian Mackenzie III Work Phone: [facility] Start: 01-09-2022 Refill Radha Salgado on PA-C Work Phone: [facility] Comment on above: Refill Request Procedures Date Procedure Procedure Detail Performing Clinician Start: 09-19-2024 Adult depression scr eening assessment Brigitte Segal FINISHER [employer].QUALITY CONTROL LAB TECHNICIAN Work Phone: Start: 09-14-2024 Estimated creatinine clearance [...] primary angioplasty with coronary stent Brigitte Segal APRN.QUALITY CONTROL LAB TECHNICIAN Work Phone: Plan of Treatment Date Care Activity Detail Author Start: 02-24-2027 Diabetes Screening Diabetes Screening [facility] Start: 12-26-2026 Diabetes Screening Diabetes Screening [facility] Start: 06-28-2026 Diabetes Screening Diabetes Screening [facility] Start: 05-10-2026 Urine microalbumin profile [facility] Start: 11-29-2025 DIABETES SCREEN DIABETES SCREEN [facility] Start: 11-29-2025 Diabetes Screening Diabetes Screening [facility] Start: 09-19-2025 Depression Screening Depression Screening [facility] Start: 03-19-2025 End: 03-19-2025 Patient encounter procedure 03/19/2025 10:40 AM EDT Office Visit [facility] [address] [place] [address] Brigitte Segal FINISHER BR[employer].QUALITY CONTROL LAB TECHNICIAN [address] [place] [id number] 6 month exam [facility] Comment on above: 6 month exam Start: 01-26-2025 [facility] Postponed from 03/30/2024 (Declined at t his time) Start: 12-26-2024 Hepatitis B surface antibody level LDL Cholesterol [facility] Start: 12-24-2024 Covid-19 Vaccine ( season) Covid-19 Vaccine () [facility] Comment on above: Postponed from 08/31/2023 (Declined at t his time) Start: 12-24-2024 DIABETES SCREEN DIABETES SCREEN [facility] Start: 10-20-2024 End: 10-20-2024 Patient encounter procedure 10/20/2024 10:00 AM EDT Office Visit [facility] [address] [place] [address] Brigitte Segal APRN.QUALITY CONTROL LAB TECHNICIAN [address] [place] [address] follow up [facility] [place] Comment on above: follow up Start: 09-19-2024 End: 09-19-2024 Patient encounter procedure 09/19/2024 2:40 PM EST Office Visit [facility] [address] [facility] [place] [address] Brigitte Segal, FINISHER [employer].QUALITY CONTROL LAB TECHNICIAN [address] [facility] [place] [phone] follow up [facility] for hypoxia Family [facility] Comment on above: follow up [facility] for hypoxia Start: 09-15-2024 Referral to service [facility] Start: 09-15-2024 Patient discharge [facility] Start: 09-08-2024 Referral to occupational therapist [facility] Start: 09-08-2024 Referral to service [facility] Start: 09-08-2024 Physiotherapy of chest [facility] Start: 09-07-2024 Following clinical pathway protocol [facility] Start: 09-07-2024 Ambulation without limitation [facility] Start: 09-07-2024 Assessment of risk of venous thromboembolism [facility] Start: 09-07-2024 Catheterization of vein [facility] Start: 09-07-2024 Inhalation therapy procedure [facility] Start: 09-07-2024 Insertion of catheter into peripheral vein [facility] Start: 09-07-2024 Measuring intake and output [facility] Start: 09-07-2024 Providing care according to standard [facility] Start: 09-07-2024 Provision of activity privileges [facility] Start: 09-07-2024 [facility] Start: 09-07-2024 Admission procedure [facility] Start: 09-07-2024 Oxygen therapy [facility] Start: 09-07-2024 [facility] Start: 09-07-2024 Continuous positive airway pressure ventilation treatment [facility] Start: 09-07-2024 Patient referral to dietitian [facility] Start: 07-30-2024 Advance Directive Discussion Advance Directive Discussion [facility] Start: 07-01-2024 End: 07-01-2024 Patient encounter procedure 07/01/2024 9:00 AM EST Office Visit [facility] [place] [address] [place] [address] Radha Durbin PA-C [address] [place] [address] 6 month follow up [facility] Comment on above: 6 month follow up Start: 03-30-2024 Covid-19 Vaccine () Covid-19 Vaccine () [facility] Start: 03-30-2024 Covid-19 Vaccine ( season) Covid-19 Vaccine () [facility] Start: 03-30-2024 Influenza vaccination Influenza Vaccine (#1) [place] [facility] morgan Start: 03-27-2024 End: 03-27-2024 Patient encounter procedure 03/27/2024 8:00 AM EDT Office Visit [facility] [address] [place] [address] Brigitte Segal APRN.QUALITY CONTROL LAB TECHNICIAN [address] [place] [address] 1 month abdominal pain f/u [facility] Comment on above: 1 month abdominal pain f/u Start: 02-25-2024 End: 05-26-2024 Amylase [Enzymatic activity/volume] in Serum or Plasma [facility] Comment on above: Expected: 02/25/2024, Expires: 4 Start: 02-25-2024 End: 05-26-2024 CBC W Auto Differential panel - Blood [facility] Comment on above: Expected: 02/25/2024, Expires: 4 Start: 02-25-2024 End: 05-26-2024 Comprehensive metabolic 2000 panel - Serum or Plasma [facility] Comment on above: Expected: 02/25/2024, Expires: Start: 02-25-2024 End: 05-26-2024 Helicobacter pylori IgG Ab [Presence] in Serum or Plasma by Immunoassay [facility] Work Phone: Comment on above: Expected: 02/25/2024, Expires: 4 Start: 02-25-2024 End: 05-26-2024 Lipase [Enzymatic activity/volume] in Serum or Plasma [facility] Comment on above: Expected: 02/25/2024, Expires: 4 Start: 02-09-2024 COVID-19 VACCINE (4 - Pfizer series) COVID-19 VACCINE (4 - Pfizer series) [facility] Comment on above: Postponed from 07/13/2021 (Declined at t his time) Start: 02-09-2024 SHINGRIX VACCINE (1 of 2) SHINGRIX VACCINE (1 of 2) [facility] Comment on above: Postponed from 11/04/1987 (Declined at t his time) Start: 12-25-2023 End: 12-25-2023 Patient encounter procedure 12/25/2023 9:00 AM EDT Office Visit [facility] [address] [place] [address] Radha Durbin PA-C [address] [place] [address] 3 month follow up [facility] Comment on above: 3 month follow up Start: 12-24-2023 End: 03-24-2024 CBC W Auto Differential panel - Blood COMPLETE BLOOD COUNT AND DIFFERENTIAL Lab Routine 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 Essential hypertension, benign Hyperlipidemia LDL goal <100 Gastroesophageal reflux disease, unspecified whether esophagitis present Anxiety state Expected: 12/24/2023, Expires: 03/24/2024 [facility] Work Phone: Comment on above: Expected: 12/24/2023, Expires: Start: 12-24-2023 End: 03-24-2024 Comprehensive metabolic 2000 panel - Serum or Plasma COMPREHENSIVE METABOLIC PANEL Lab Routine 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 Essential hypertension, benign Hyperbilirubinemia Gastroesophageal reflux disease, unspecified whether esophagitis present Anxiety state Expected: 12/24/2023, Expires: 03/24/2024 [facility] Comment on above: Expected: 12/24/2023, Expires: Start: 12-24-2023 End: 03-24-2024 Lipid 1996 panel - Serum or Plasma LIPID PANEL BASIC Lab Routine 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 Atherosclerosis of aorta (HCC) Hyperlipidemia LDL goal <100 Expected: 12/24/2023, Expires: 03/24/2024 [facility] [facility] Comment on above: Expected: 12/24/2023, Expires: Start: 12-24-2023 End: 03-24-2024 Magnesium [Mass/volume] in Serum or Plasma MAGNESIUM Lab Routine 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 Current use of proton pump inhibitor Expected: 12/24/2023, Expires: 03/24/2024 [facility] Comment on above: Expected: 12/24/2023, Expires: Start: 11-30-2023 Hepatitis B surface antibody level LDL CHOLESTEROL [facility] Start: 08-31-2023 Covid-19 Vaccine () Covid-19 Vaccine () [facility] Start: 08-04-2023 Patient discharge [facility] Start: 08-04-2023 [facility] Start: 08-03-2023 Physiotherapy of chest [facility] Start: 08-01-2023 Elevation of head of bed [facility] Start: 08-01-2023 Patient education [facility] Start: 08-01-2023 [facility] Start: 08-01-2023 Following clinical pathway protocol [facility] Start: 08-01-2023 Oxygen therapy [facility] Start: 08-01-2023 Admission procedure [facility] Start: 08-01-2023 Provision of activity privileges [facility] Start: 08-01-2023 Assessment of risk of venous thromboembolism [facility] Start: 08-01-2023 Insertion of catheter into peripheral vein [facility] Start: 08-01-2023 Measuring intake and output [facility] Start: 08-01-2023 Providing care according to standard [facility] Start: 08-01-2023 End: 08-01-2023 Referral to service [facility] Start: 08-01-2023 [facility] Start: 08-01-2023 Hospital admission, emergency, from emergency room, medical nature [facility] Start: 08-01-2023 Inhalation therapy procedure [facility] Start: 07-30-2023 Advance Directive Discussion Advance Directive Discussion [facility] Start: 07-30-2023 Behavioral Health Screening Behavioral Health Screening [facility] Start: 07-30-2023 Depression Assessment Depression Assessment [facility] Start: 07-29-2023 DEPRESSION ASSESSMENT DEPRESSION ASSESSMENT [facility] Comment on above: Postponed from 07/30/2022 (Declined at t his time) Start: 03-30-2023 Influenza vaccination [facility] Start: 12-24-2022 Hepatitis B surface antibody level LDL CHOLESTEROL [facility] Start: 12-19-2022 SHINGRIX VACCINE (1 of 2) SHINGRIX VACCINE (1 of 2) [facility] Comment on above: Postponed from 11/04/1987 (Insurance Cov erage) Start: 11-27-2022 End: 01-27-2023 CBC panel - Blood by Automated count CBC Lab Routine S/P primary angioplasty with coronary stent Expected: 11/27/2022, Expires: 01/27/2023 [facility] Work Phone: Comment on above: Expected: 11/27/2022, Expires: 3 Start: 11-27-2022 End: 01-27-2023 Comprehensive metabolic 2000 panel - Serum or Plasma COMP METABOLIC PANEL Lab Routine S/P primary angioplasty with coronary stent Expected: 11/27/2022, Expires: 01/27/2023 [facility] Work Phone: Comment on above: Expected: 11/27/2022, Expires: 3 Start: 11-27-2022 End: 01-27-2023 Lipid 1996 panel - Serum or Plasma LIPID PANEL BASIC Lab Routine S/P primary angioplasty with coronary stent Expected: 11/27/2022, Expires: 01/27/2023 [facility] Work Phone: Comment on above: Expected: 11/27/2022, Expires: 3 Start: 11-27-2022 End: 01-27-2023 Prostate specific Ag [Mass/volume] in Serum or Plasma PSA/PROSTSPECAG DIAG Lab Routine Elevated PSA Expected: 11/27/2022, Expires: 01/27/2023 [facility] Work Phone: Comment on above: Expected: 11/27/2022, Expires: 3 Start: 07-30-2022 ADVANCE DIRECTIVE DISCUSSION ADVANCE DIRECTIVE DISCUSSION [facility] Start: 07-30-2022 DEPRESSION ASSESSMENT DEPRESSION ASSESSMENT [facility] Start: 03-30-2022 Influenza vaccination INFLUENZA (#1) [facility] Start: 02-08-2022 Patient referral [facility] Work Phone: Start: 09-18-2021 COVID-19 VACCINE (4 - Booster for Pfizer series) COVID-19 VACCINE (4 - Booster for Pfizer series) [facility] Start: 07-30-2021 DEPRESSION ASSESSMENT DEPRESSION ASSESSMENT [facility] Start: 07-13-2021 COVID-19 VACCINE (4 - Booster for Pfizer series) COVID-19 VACCINE (4 - Booster for Pfizer series) [facility] Start: 05-31-2017 End: 05-31-2017 Appointment Appointment [facility] Work Phone: Start: 05-22-2017 End: 05-22-2017 Appointment Appointment [facility] Work Phone: Start: 05-08-2017 End: 05-08-2017 Appointment Appointment [facility] Work Phone: Start: 05-08-2017 End: 05-08-2017 Arterial exam Arterial exam [facility] Work Phone: Start: 05-08-2017 End: 05-08-2017 N-invas physiologic std lxtr art compl bi PVR with exercise [facility] Work Phone: Start: 2012 RSV Vaccine (1 - 1-dose 75+ series) RSV Vaccine (1 - 1-dose 75+ series) [facility] Start: 1997 RSV Vaccine (1 - 1-dose 60+ series) RSV Vaccine (1 - 1-dose 60+ series) [facility] Start: 11-04-1987 SHINGRIX VACCINE (1 of 2) SHINGRIX VACCINE (1 of 2) [facility] Start: 11-04-1955 Depression Screening Depression Screening [facility] Cyclic citrullinated peptide IgG Ab [Units/volume] in Serum or Plasma [facility] Cytoplasmic ANCA Screen [facility] Measurement of respiratory function [facility] Patient Education ED Epistaxis (Adult) [facility] Work Phone: Patient referral [facility] Work Phone: Rheumatoid factor [Presence] in Serum [facility] Immunizations Immunization Date Immunization Notes Care Provider Mendoza lee 04-30-2023 COVID-19 vaccine, ag e 12+ yr, season (PFIZER-BIONTECH) NA Durbin PA-C Work Phone: [facility] 04-16-2023 influenza, high dose seasonal, preservative-free NA Durbin PA-C Work Phone: [facility] 04-16-2023 influenza virus vacc ine, unspecified formulation Brigittecolette Segal FINISHER BRUSH.QUALITY CONTROL LAB TECHNICIAN Work Phone: [facility] 05-16-2022 influenza (HD-IIV4) vaccine, age 65+ yr, high dose, quadrivalent, PF (FLUZONE HIGH-DOSE) Brigitte Segal FINISHER BRUSH.QUALITY CONTROL LAB TECHNICIAN Work Phone: [facility] 05-18-2021 COVID-19 vaccine, ag e 12+ yr (PFIZER-BIONTECH - PURPLE TOP) NA Durbin PA-C Work Phone: [facility] 05-18-2021 influenza (HD-IIV4) vaccine, age 65+ yr, high dose, quadrivalent, PF (FLUZONE HIGH-DOSE) NA Durbin PA-C Work Phone: [facility] 05-18-2021 influenza, high dose seasonal, preservative-free NA Durbin PA-C Work Phone: [facility] 11-01-2020 COVID-19 vaccine, ag e 12+ yr (PFIZER-BIONTECH - PURPLE TOP) NA Durbin PA-C Work Phone: [facility] 10-08-2020 COVID-19 vaccine, ag e 12+ yr (PFIZER-BIONTECH - PURPLE TOP) NA Durbin PA-C Work Phone: [facility] 04-26-2020 influenza, high-dose , quadrivalent vaccine (FLUZONE HIGH DOSE QUADRIVALENT) NA Durbin PA-C Work Phone: [facility] 04-13-[address] Brian Mackenzie III Work Phone: [facility] 04-24-2018 influenza, high dose seasonal, preservative-free NA Durbin PA-C Work Phone: [facility] 05-14-2017 influenza, high dose seasonal, preservative-free NA Durbin PA-C Work Phone: [facility] 05-10-2016 pneumococcal conjuga te vaccine, 13 valent NA Durbin PA-C Work Phone: [facility] 05-10-2016 tetanus toxoid, redu lane diphtheria toxoid, and acellular pertussis vaccine, adsorbed NA Durbin PA-C Work Phone: [facility] 04-29-[address] Brian Mackenzie III Work Phone: [facility] 03-27-2008 pneumococcal polysaccharide vaccine, 23 valent NA Durbin PA-C Work Phone: [facility] Work Phone: Payers Date Payer Category Payer Self-pay [id number] 2017 Medicare (Managed Care) PRIMETIM E [id number] 2017 Unknown PRIMETIME PRIMET PAL[place]O HMO POS [id number] 2017-Present [phone] [address] [place] [address] [facility] [id number] 2017 Unknown PRIMETIME PRIMET [place] HMO POS [id number] 2017-Present [phone] [address] [place] [address] HMO [id number] 2009 Unknown [id number] Unknown [id number]. 2.462 Unknown [id number]. 2.462 Unknown [id number] [id number]. 2.462 Unknown [id number] [id number]. 2.462 Unknown [id number] [id number]. 2.462 Unknown [id number] [id number]. 2.462 Unknown [id number] [id number]. 2.462 Unknown [id number] 2.16.840.1.095120.3.579. 2.462 Unknown [id number] [id number]. 2.462 Unknown [id number] [id number]. 2.462 Unknown [id number] 2.16.840.1.208715.3.579. 2.462 Unknown [id number] [id number]. 2.462 Unknown [id number] [id number]. 2.462 Unknown [id number] [id number]. 2.462 Unknown [id number] [id number]. 2.462 Unknown [id number]. 2.462 Social History Date Type Detail Facility Start: 07-11-2017 End: 09-07-2024 Tobacco smoking status NHIS Ex-smoker [facility] Work Phone: Start: 12-19-2021 End: 09-19-2024 Alcohol intake Current drinker of alcohol (finding) [facility] Start: 1935 Sex Assigned At Not on file [facility] Start: 12-13-2021 End: 12-23-2021 Exposure to SARS-CoV-2 (event) Not sure [facility] Start: 02-08-2022 End: 08-01-2023 Tobacco smoking status HIIS Unknown if ever smoked [facility] Start: 08-26-2020 Occasional [facility] Start: 08-26-2020 None [facility] Start: 08-26-2020 Spouse/ Signif icant Other [facility] Start: 08-26-2020 Non-smoker [facility] Start: 1935 Sex Assigned At Male [facility] History of tobacco use Current smoker [facility] Start: 07-11-2017 End: 11-27-2022 Tobacco use and exposure Smokeless tobacco non-user [facility] Start: 11-27-2022 Tobacco Comment quit 2000 [facility] Start: 12-22-2022 End: 02-08-2023 History of Social function [facility] Start: 12-22-2022 End: 02-08-2023 Tobacco use panel [facility] Adult Depression Screening Assessment 0 [facility] Goals Date Patient Goal Desired Activity /State Functional Status Date Assessment Result Facility 09-15-2024 Functional status Chair [facility] Work Phone: 08-04-2023 Functional status Ambulates [facility] Work Phone: 09-21-2017 Are you deaf, or do you have serious difficulty hearing No 09/21/2017 1:31 PM Brian Whitman III, MD No [facility] 09-21-2017 Are you blind, or do you have serious difficulty seeing, even when wearing glasses No 09/21/2017 1:31 PM Brian Whitman III, MD No [facility] 09-21-2017 Do you have serious difficulty walking or climbing stairs No 09/21/2017 1:31 PM Brian Whitman III, MD No [facility] 09-21-2017 Do you have difficul ty dressing or bathing No 09/21/2017 1:31 PM Brian Whitman III, MD No [facility] 09-21-2017 Because of a physica l, mental, or emotional condition, do you have difficulty doing errands alone such as visiting a physician's office or shopping No 09/21/2017 1:31 PM Brian Whitman III, MD [facility] Mental Status Date Assessment Result Facility 09-15-2024 Cognitive function [facility] Work Phone: 08-03-2023 Cognitive function Voice[facility]Name [facility] Work Phone: 08-01-2023 Cognitive function Level Of Cons ciousness Awake;Alert;Appropriate;Fol lows Commands [facility] Work Phone: 09-21-2017 Because of a physica l, mental, or emotional condition, do you have serious difficulty concentrating, remembering, or making decisions No 09/21/2017 1:31 PM Brian Whitman III, MD [facility] Clinical Notes 08-30-2017 to 10-31-2024 Telephone Encounter - Jaqueline Andre RN - 10/31/2024 3:29 PM EDTTelephone Encounter - Jaqueline Andre RN - 10/31/2024 3:29 PM EDTTelephone Encounter - Shira Mcglil RN - 10/27/2024 5:42 PM EDT Note Date & Type Note Facility 10-31-2024 Telephone encounter Note Palliative Medicine Referral Assessment Referral Accepted: No, Reason for Denial: Chart reviewed, pal med order meant for [facility] in [place]. Jaqueline Andre RN October 31, 2024 [facility] 10-31-2024 Miscellaneous Notes Palliative Medicine Referral Assessment Referral Accepted: No, Reason for Denial: Chart reviewed, pal med order meant for [facility] in [place]. Jaqueline Andre RN October 31, 2024 documented in this encounter [facility] 10-27-2024 Telephone encounter Note Pts daughter Pili [...] on her brothers phone number as well. [facility] 10-27-2024 Miscellaneous Notes Pts daughter Pili called [...] patient wishes to be referred. Rohan with [facility] calls to report family is requesting order for palliative care. Fax order to [facility] in [place]. Rohan also reports he saw pt today and is extending nurse to once a week x 2 weeks. Pt will then be discharged from Nursing. Rohan reports that Pulmonary gave new dx for pt of COPD and pulmonary htn. Amita Kim LPN documented in this encounter [facility] 10-27-2024 Telephone encounter Note Pt called and [...] into accepting palliative care. Shira Mcgill, RN [facility] 10-27-2024 Telephone encounter Note Please ask patient if he wants a palliative care consult? Palliative care is not end-of-life care but symptom management and chronic disease. Consult placed if patient wishes to be referred. [facility] 10-27-2024 Telephone encounter Note Rohan with [facility] calls to report family is requesting order for palliative care. Fax order to [facility] in [place]. Rohan also reports he saw pt today and is extending nurse to once a week x 2 weeks. Pt will then be discharged from Nursing. Rohan reports that Pulmonary gave new dx for pt of COPD and pulmonary htn. Amita Kim LPN [facility] 10-15-2024 Telephone encounter Note Paulino- nurse- [facility]- reports he did patient eval today and will extend HHC visits to 1 x week for 2 weeks. Pt is still on 4 L O2 after pneumonia. Pt will see pulm tomorrow. [facility] 10-15-2024 Miscellaneous Notes Paulino- nurse- [facility]- reports he did patient eval today and will extend HHC visits to 1 x week for 2 weeks. Pt is still on 4 L O2 after pneumonia. Pt will see pulm tomorrow. documented in this encounter [facility] 10-03-2024 Telephone encounter Note Detailed message left on secure line for Jamie [facility] Shirley Rivera MA October 03, 2024 3:56 PM [facility] 10-03-2024 Miscellaneous Notes Detailed message left on secure line for Jamie [facility] Shirley Rivera MA October 03, 2024 3:56 PM Yes. Please increase O2 to 4l. Thank you for the recert. Jamie with [facility] is calling due to he saw patient [...] back with information. documented in this encounter [facility] 10-03-2024 Telephone encounter Note Yes. Please increase O2 to 4l. Thank you for the recert. [facility] 10-03-2024 Telephone encounter Note Jamie with [facility] is calling due to he saw patient [...] advise, Jamie needs called back with information. [facility] 09-19-2024 Telephone encounter Note Sounds good. Agree. [facility] 09-19-2024 Miscellaneous Notes Sounds good. Agree. Rohan calling with [facility] Physical Therapy with plan of care for patient. Pt will be seen 1x per week for 4 weeks for functional mobility training. No call back needed if provider agreeable. Whit Sheridan RN documented in this encounter [facility] 09-19-2024 Instructions Brigitte Segal APRN.CNP - 09/19/2024 3:24 PM EST 1) Mirtazapine 7.5 mg at bedtime for sleep 2) Follow up in 6 months documented in this encounter [facility] 09-19-2024 Note HNO ID: [id number] Author: BRIGITTE SEGAL APRN.CNP Service: ? Author [...] lipoma performed by Dr. Robe Mackenzie at [facility] REVSC OPN/PRQ FEM/POP W/STNT/ANGIOP SM VSL 03-18-14 [...] Parkinson's disease with (more content not included)... [facility] 09-19-2024 History of Presen t illness Narrative [...] lipoma performed by Dr. Robe Mackenzie at [facility] REVSC OPN/PRQ FEM/POP W/STNT/ANGIOP SM VSL 03-18-14 [...] no tremor 7. 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 Pt will be seen 1x per week for 4 weeks for functional mobility training. No call back needed if provider agreeable. Whit Sheridan, ZACKARY [facility] 09-18-2024 Telephone encounter Note HHN was not at home, just granddaughter. She did report no cough. Pt has appointment with PCP tomorrow. [facility] 09-18-2024 Miscellaneous Notes HHN was not at home, just granddaughter. She did report no cough. Pt has appointment with PCP tomorrow. Absolutely keep at 3L. Any report on lung sounds? Haley from [facility] calls and reports that granddaughter had checked [...] provider tomorrow 09/19/2024. Please Contact Haley back [phone]. Tracy Cedillo RN Patient will need to stay on oxygen until he follows up with pulmonary. I have not seen him since February 2024 therefore I am not really able to shed any light on his oxygen use. Not common to use oxygen for only a week. Hellen calling from [facility] to report plan of care for patient and senior care will visit patient 1 time a week for 1 week and 2 times a week for 2 weeks. [facility] will work with patient on wound care (patient has skin tear to right elbow) and management of O2 levels. Hellen had no orders for wound care. Hellen cleaned wound and put on Vaseline gauze and band aid. Hellen also notes that patient is on Oxygen and thought that he was only going to be on oxygen for a week. Patient does not see client experience manager for a month. Hellen did not know if provider wanted to address Oxygen use. Patient is scheduled to see PCP 09/19/2024. No call back needed unless there are questions. Tracy Cedillo RN documented in this encounter [facility] 09-18-2024 Telephone encounter Note Absolutely keep at 3L. Any report on lung sounds? [facility] 09-18-2024 Telephone encounter Note Haley from [facility] calls and reports that granddaughter had checked [...] provider tomorrow 09/19/2024. Please Contact Haley back [phone]. Tracy Cedillo RN [facility] 09-18-2024 Telephone encounter Note Patient will need to stay on oxygen until he follows up with pulmonary. I have not seen him since February 2024 therefore I am not really able to shed any light on his oxygen use. Not common to use oxygen for only a week. [facility] 09-17-2024 Telephone encounter Note Hellen calling from [facility] to report plan of care for patient and senior care will visit patient 1 time a week for 1 week and 2 times a week for 2 weeks. [facility] will work with patient on wound care (patient has skin tear to right elbow) and management of O2 levels. Hellen had no orders for wound care. Hellen cleaned wound and put on Vaseline gauze and band aid. Hellen also notes that patient is on Oxygen and thought that he was only going to be on oxygen for a week. Patient does not see client experience manager for a month. Hellen did not know if provider wanted to address Oxygen use. Patient is scheduled to see PCP 09/19/2024. No call back needed unless there are questions. Tracy Cedillo RN [facility] 09-15-2024 Telephone encounter Note Patient is an [...] 5 mg daily to 10 mg daily [facility] 09-15-2024 Miscellaneous Notes Patient is an 88-year-old [...] mg daily Yes. Of course Rochelle from [facility] calls and states that patient is being discharged from [facility] on 09/05/2024 with the diagnosis of hypoxia and acute respiratory failure. Rochelle asking if provider willing to follow patient with orders for senior care, physical therapy, occupational therapy and social work. If agreeable please give Rochelle a call back . Thank you, Tracy Cedillo RN documented in this encounter [facility] 09-15-2024 Telephone encounter Note Yes. Of course [facility] 09-15-2024 Telephone encounter Note Rochelle from [facility] calls and states that patient is being discharged from [facility] on 09/05/2024 with the diagnosis of hypoxia and acute respiratory failure. Rochelle asking if provider willing to follow patient with orders for senior care, physical therapy, occupational therapy and social work. If agreeable please give Rochelle a call back . Thank you, Tracy Cedillo RN [facility] 09-15-2024 Note [facility] Medical Records Department [address] [place] [id number] Discharge Summary 09/15/24 0952 MR#: [id number] Acct: [id number] Name: CLARK LYLES Rep #: [id number] : 1935 88 From: John Soliz MD PCP: MARIANA Humphreys Status:ADM IN Location: [place] [address] Providers Date of Admission: 09/07/24 Date of [...] of Joints or (more content not included)... [facility] 09-09-2024 Telephone encounter Note Patient was admitted to [facility] on September 07 to 2024 for [...] is a DNR CC with no intubation. [facility] 09-09-2024 Miscellaneous Notes Patient was admitted to [facility] on September 07 to 2024 for [...] with no intubation. documented in this encounter [facility] 09-07-2024 Evaluation note Diagnosis Onset Date Resolution Hypoxia inactive September 07, 2024 12:42pm Pulmonary hypertension acute [facility] 2024 12:57pm COPD (chronic obstructive pulmonary disease) chronic October 16, 2024 12:57pm [facility] Work Phone: 1(164) 442-938208-29-2024 Instructions* Patient Instructions* Brigitte Segal APRN.CNP - 03/27/2024 8:18 AM EDT 1) eliminate omeprazole but continue pantoprazole 2) discontinue trazodone, replaced with Tylenol PM 3) follow up in Jun. as scheduled [facility] NoteHNO ID: [id number] Author: BRIGITTE SEGAL APRN.CNP Service: ? Author [...] lipoma performed by Dr. Robe Mackenzie at [facility] 03-18-14: REVSC OPN/PRQ FEM/POP W/STNT/ANGIOP SM VSL [...] - Controlled - Counse (more content not included)...[facility]08-29-2024 History of Present illness Narrative* Brigitte Segal APRN.QUALITY CONTROL LAB TECHNICIAN - 03/27/2024 8:03 AM EDT This is [...] lipoma performed by Dr. Robe Mackenzie at [facility] 03-18-14: REVSC OPN/PRQ FEM/POP W/STNT/ANGIOP SM VSL [...] improvement. Brigitte Segal APRN.JANET [facility] Tele[facility] encounter Note * Telephone Encounter - [...] Velez LPN March 13, 2024 10:13 AM [facility]08-15-2024 Miscellaneous Notes* Telephone Encounter - Renetta Velez [...] 13, 2024 10:13 AM documented in this encounterThe [facility]07-[facility]24 Telephone encounter Note * Telephone Encounter - Shirley Rivera MA - 02/26/2024 8:28 AM EDT Patient was made aware of the results. Patient verbalizes understanding. Shirley Rivera Ma [facility]07-30-2024 Miscellaneous Notes* Telephone Encounter - Shirley Rivera [...] does on the pantoprazole. documented in this encounterThe [facility]07-30-2024 Telephone encounter Note * Telephone Encounter - Brigitte Segal APRN.CNP - 02/26/2024 8:00 AM EDT Patient does not have MyChart. Please let him know that he was negative for H. pylori the bacteria that causes ulcers. Blood counts are okay, kidney function liver function, and pancreas are all normal. Lets see how he does on the pantoprazole. [facility]07-29-2024 Instructions* Patient Instructions* Brigitte Segal APRN.CNP - 02/25/2024 8:50 AM EDT 1) Check labs 2) Flagyl 500 mg 3 x day 3) Cipro 500 mg 2 x day 4) Start pantoprazole 40 mg daily 5) Follow up in 1 month documented in this encounterThe [facility]07-29-2024 NoteHNO ID: [id number] Author: BRIGITTE SEGAL APRN.JANET Service: ? Author [...] lipoma performed by Dr. Robe Mackenzie at [facility] OPN/PRQ FEM/POP W/STNT/ANGIOP SM VSL 03-18-14 [...] - Recheck in 1 month Brigitte Segal APRN.[facility]07-29-2024 History of Present illness Narrative* Brigitte Segal APRN.[facility] - 02/25/2024 8:35 AM EDT This [...] lipoma performed by Dr. Robe Mackenzie at [facility] OPN/PRQ FEM/POP W/STNT/ANGIOP SM VSL 03-18-14 [...] - Recheck in 1 month Brigitte Segal APRN.[employer] TECHNICIAN documented in this encounterThe [facility]06-[facility]-2024 Telephone encounter Note * Telephone Encounter - Shirley Rivera MA - 01/04/2024 3:40 PM EDT Letter mailed to patient [facility]06-07-2024 Miscellaneous Notes* Telephone Encounter - Shirley Rivera MA - 01/04/2024 3:40 PM EDT Letter mailed to patient * Telephone Encounter - Shirley Rivera MA - 01/01/2024 4:48 PM EDT Attempted to call, no answer * Telephone Encounter - Walter Gomez MD - 12/28/2023 2:27 PM EDT Let him know his labs are stable. documented in this encounterThe [facility]06-04-2024 Telephone encounter Note * Telephone Encounter - Shirley Rivera MA - 01/01/2024 4:48 PM EDT Attempted to call, no answer [facility]06-03-2024 Telephone encounter Note* Telephone Encounter - Victoria [...] 07/01/2024 Please advise. Thank you. Victoria Berkowitz. [facility]06-03-2024 Miscellaneous Notes* Telephone Encounter - Victoria Gleason [...] Thank you. Victoria Berkowitz. documented in this encounterThe [facility]05-31-2024 Telephone encounter Note * Telephone Encounter - Walter Gomez MD - 12/28/2023 2:27 PM EDT Let him know his labs are stable. [facility] Work Phone: 1(273) 631-298405-28-2024 Instructions* Patient Instructions* Radha Durbin PA-C - 12/25/2023 9:46 AM EDT Please schedule as soon as possible [place] [facility] documented in this encounterThe [facility] Hospital05-28-2024 History of Present illness Narrative* Radha Durbin PA-C - 12/25/2023 9:00 AM EDT 88 year old male with c/o here for follow up. 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) Cardiovascular interval hx: Sees [place] [facility]: no new records 08/01/2023-08/04/2023 hospitalized [facility]: progressive SOB, hypoxia, bilateral pneumonia suspected atypical but negative cultures. 08/02/2023 echocardiogram [facility]: LV size WNL, mild concentric LVH, [...] to suggest ischemia. 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 [...] Lymph 1.00 - 4.00 k/uL 0.81 (L) [place]% % 9.0 Abs [place] <0.87 k/uL 0.99 (H) Eosin% % 2.6 [...] because he felt bad in the mornings. [place] better after he stopped. Can think of [...] mg 2 capsules nightly Also taking saw emmett Urine flow: good, gets up about twice [...] lipoma performed by Dr. Robe Mackenzie at [facility] OPN/PRQ FEM/POP W/STNT/ANGIOP SM VSL 03-18-14 [...] Chronic Blood Loss Coronary Artery Disease Involving [place] Coronary Artery of [place] Heart S/P Primary Angioplasty With Coronary Stent [...] refill. ASSESSMENT/PLAN: 1. 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- ICD9: 414.01, ICD10: [...] signs of decompensation Needs follow up with [place] [facility]ology:daughter will schedule Continue current meds - [...] data. Radha Durbin PA-C documented in this encounterThe [facility] Hospital05-28-2024 NoteHNO ID: [id number] Author: Radha DURBIN PA-C Service: ? Author Type: Physician Metals Analyst Type: Progress Notes Filed: 12/26/2023 14:22 Note Text: 88 year old male with c/o here for follow up. 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 (primary encounter diagnosis) S/p primary angioplasty with coronary stent Angina pectoris (hcc) Atherosclerosis of aorta (hcc) Essential hypertension, benign Hyperlipidemia ldl goal <100 Pad (peripheral artery disease) (hcc) Cardiovascular interval hx: Sees [place] [facility]ology: no new records 08/01/2023-08/04/2023 hospitalized [facility]: progressive SOB, hypoxia, bilateral pneumonia suspected atypical but negative cultures. 08/02/2023 echocardiogram [facility]: LV size WNL, mild concentric LVH, [...] to suggest ischemia. 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 [...] Lymph 1.00 - 4.00 k/uL 0.81 (L) [place]% % 9.0 Abs [place] <0.87 k/uL 0.99 (H) Eosin% % 2.6 [...] because he felt bad in the mornings. [place] bett (more content not included)...[facility]05-16-2024 Telephone encounter Note* Telephone Encounter - Kassandra Quispe RN - 12/13/2023 4:55 PM EDT Spoke with patient. Gave permission for son, Quincy to receive medical information. Spoke with Quincy and let him know script was sent. Kassandra Quispe RN [facility]05-16-2024 Miscellaneous Notes* Telephone Encounter - Kassandra Quispe [...] 12/25/2023 Please return call to Quincy venegas [phone] Please advise. Thank you. Danita Staples. documented in this encounterThe [facility]05-16-2024 Telephone encounter Note * Telephone Encounter - [...] we are unable to give him information. [facility]05-16-2024 Telephone encounter Note* Telephone Encounter - Danita [...] 12/25/2023 Please return call to Quincy venegas [phone] Please advise. Thank you. Danita Staples. [facility]02-27-2024 History of Present illness Narrative* Radha Durbin PA-C - 09/25/2023 9:00 AM EST 87 year old male with c/o here for 3 month follow up Hospital discharge summary Facility: [facility] Date of admission 08/01/2023 Date of discharge 08/04/2023 Discharge diagnoses and Plan 1. Acute hypoxia: Admitted through [facility] emergency department with complaint of progressive [...] daughter in the 80's percentile. [facility] to [facility] and sent to ER. Placed on [...] Rocephin and Zithromax was continued 08/02/2023 echocardiogram [facility]: LV size WNL, mild concentric LVH, [...] dehydration or weakness. 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 (primary encounter diagnosis) S/p primary angioplasty with coronary stent Angina pectoris ([facility]) Atherosclerosis of aorta ([facility]) Essential hypertension, benign Hyperlipidemia ldl goal <100 Pad (peripheral artery disease) ([facility]) Cardiovascular interval hx: 08/22/2023 sent to ED from [facility] with lo O2 sat Sees [place] [facility]ology: no new records 08/02/2023 echocardiogram [facility]: LV size WNL, mild concentric LVH, [...] to suggest ischemia. 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 [...] Lymph 1.00 - 4.00 k/uL 0.81 (L) [place]% % 9.0 Abs [place] <0.87 k/uL 0.99 (H) Eosin% % 2.6 [...] because he felt bad in the mornings. [place] better after he stopped. 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 Robe Mackenzie at [facility] OPN/PRQ FEM/POP W/STNT/ANGIOP SM VSL 03-18-14 [...] Chronic Blood Loss Coronary Artery Disease Involving [place] Coronary Artery of [place] Heart S/P Primary Angioplasty With Coronary Stent [...] refill. ASSESSMENT/PLAN: 1. 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- ICD9: 414.01, ICD10: I25.10 (primary diagnosis) 2. S/P primary angioplasty with coronary stent - ICD9: V45.82, ICD10: Z95.5 3. Angina pectoris (HCC) - ICD9: 413.9, ICD10: I20.9 4. Atherosclerosis of aorta (HCC) - ICD9: 440.0, ICD10: I70.0 Stable, no ischemic sx, see [place] [facility] 5. Essential hypertension, benign - ICD9: [...] which included preparing to see the patient, [id number] patient care, completing clinical documentation, obtaining and/or [...] data. Radha Durbin PA-C documented in this encounterThe [facility]01-06-2024 Discharge summary Author Jerrell Faith [facility] August 04, 2023 12:59pm Note Date/Time August 04, 2023 11 :14am [facility] Medical Records Department [address] [place] [address] Discharge Summary 08/04/23 1114 MR#: [id number] Acct: [id number] Name: CLARK LYLES Rep #:[id number] : 1935 87 From: Jerrell Faith MD PCP: CHRISTINE Brown Status:ADM I N Location: [place] [address] Providers Date of Admission: 08/01/23 Date of [...] 76.4 H, Lymph % (Auto) 8.9 L, [place] % (Auto) 9.4, Eos % (Auto) 4.1, [...] Self Care Charges/Coding Visit Charges Inpatient E&M: 37672 Disch Hosp >30min 08/04/23 1259 <Electronically signed by Jerrell Faith MD> Cosigner Signature (if applicable): CC: Dr. Jerrell Faith MD; CHRISTINE Brown~ Signed [facility] Work Phone: 1(113) 435-658501-06-2024 Progress note Author Jerrell Faith [facility] August 04, 2023 11:09am Note Date/Time August 04, 2023 8: 05am [facility] Medical Records Department [address] [place] [address] Progress Note - Hospitalist 08/04/23 0805 MR#: [id number] Acct: [id number] Name: CLARK LYLES Rep #:[id number] : 1935 87 From: Jerrell Faith MD PCP: CHRISTINE Brown Status:ADM I N Location: [place] [address] Reason for Visit Reason for Visit: Diagnoses [...] 76.4 H, Lymph % (Auto) 8.9 L, [place] % (Auto) 9.4, Eos % (Auto) 4.1, [...] 35 Minutes Charges/Coding Visit Charges Inpatient E&M: 17239 Subs Hosp L2 08/04/23 1109 <Electronically signed by Jerrell Faith MD> Cosigner Signature (if applicable): CC: ~ Signed [facility] Work Phone: 1(949) 140-417801-05-2024 Progress note Author Jerrell Faith [facility] August 03, 2023 9:52am Note Date/Time August 03, 2023 8: 06am [facility] Medical Records Department [address] [place] [address] Progress Note - Hospitalist 08/03/23 0802 MR#: [id number] Acct: [id number] Name: CLARK LYLES Rep #:[id number] : 1935 87 From: Jerrell Faith MD PCP: CHRISTINE Brown Status:ADM I N Location: [place] [address] Reason for Visit Reason for Visit: Diagnoses [...] documentation, 50Minutes Charges/Coding Visit Charges Inpatient E&M: 60762 Subs Hosp L3 08/03/23 0952 <Electronically signed by Jerrell Faith MD> Cosigner Signature (if applicable): CC: ~ Signed [facility] Work Phone: 1(965) 442-337701-04-2024 Progress note Author Jerrell Galeasto [facility] August 02, 2023 3:17pm Note Date/Time August 02, 2023 10 :55am [facility] Medical Records Department [address] [place] [address] Progress Note - Hospitalist 08/02/23 1055 MR#: [id number] Acct: [id number] Name: CLARK LYLES Rep #:[id number] : 1935 87 From: Jerrell Faith MD PCP: CHRISTINE Brown Status:ADM I N Location: [place] [address] Reason for Visit Reason for Visit: Patient [...] 82.0 H, Lymph % (Auto) 5.7 L, [place] %(Auto) 10.3 H, Eos % (Auto) 0.9, [...] 88.2 H, Lymph % (Auto) 5.4 L, [place] % (Auto) 5.8, Eos % (Auto) 0.0, [...] documentation, 50Minutes Charges/Coding Visit Charges Inpatient E&M: 57006 Subs Hosp 08/02/23 1517 <Electronically signed by Jerrell Faith MD> Cosigner Signature (if applicable): CC: ~ Signed [facility] Work Phone: 1(535) 375-948401-03-2024 Discharge summary Author Lewis Sutton [facility] August 01, 2023 4:18pm Note Date/Time August 01, 2023 1: 26pm [facility] Medical Records Department [address] [place] [address] Emergency Department Summary 08/01/23 MR#: [id number] Acct: [id number] Name: CLARK LYLES Rep #:[id number] : 1935 87 From: Lewis Sutton MD PCP: CHRISTINE Brown Status:ADM I N Location: [place] [address] HPI History of Present Illness Chief Complaint: [...] he has dyspnea on exertion as well. [facility] Medical History Acute respiratory failure with hypoxia Anxiety Anxiety and depression Atherosclerosis of coronary artery of on[place]aga heart without angina pectoris BPH (benign prostatic [...] 82.0 H Lymph % (Auto) 5.7 L [place] % (Auto) 10.3 H Eos % (Auto) [...] 15:00 EST Reading Location ID and State: [facility] / [place] Tel , Service support , Discharge Plan Dx/Rx/DC Orders Clinical Impression: Hypoxia, Pneumonia, SOB (shortness of breath), Hypokalemia Disposition Disposition: Acute Care [facility] What to do if you have Problems For any increased pain, shortness of breath, bleeding, nausea or vomiting, chestpain, or any unexpected problems, contact your Primary Care Provider. Call [facility] ([phone]) or report to the closest Emergency Room. Call 911 if necessary. 08/01/23 1618 <Electronically signed by Lewis Sutton MD> Cosigner Signature (if applicable): CC: CHRISTINE Brown ~ Signed [facility] Work Phone: 1(183) 105-668901-03-2024 Discharge summary Author Lewis Sutton [facility] August 01, 2023 4:18pm Note Date/Time August 01, 2023 1: 26pm [facility] Medical Records Department [address] [place] [address] Emergency Department Summary 08/01/23 MR#: [id number] Acct: [id number] Name: CLARK LYLES Rep #:[id number] : 1935 87 From: Lewis Sutton MD PCP: CHRISTINE Brown Status:ADM I N Location: [place] [address] HPI History of Present Illness Chief Complaint: [...] he has dyspnea on exertion as well. [facility] Medical History Acute respiratory failure with hypoxia Anxiety Anxiety and depression Atherosclerosis of coronary artery of [place] heart without angina pectoris BPH (benign prostatic [...] 82.0 H Lymph % (Auto) 5.7 L [place] % (Auto) 10.3 H Eos % (Auto) [...] 15:00 EST Reading Location ID and State: [facility] / [place] Tel , Service support , Discharge Plan Dx/Rx/DC Orders Clinical Impression: Hypoxia, Pneumonia, SOB (shortness of breath), Hypokalemia Disposition Disposition: Acute Care [facility] What to do if you have Problems For any increased pain, shortness of breath, bleeding, nausea or vomiting, chestpain, or any unexpected problems, contact your Primary Care Provider. Call [facility] ([phone]) or report to the closest Emergency Room. Call 911 if necessary. 08/01/23 1618 <Electronically signed by Lewis Sutton MD> Cosigner Signature (if applicable): CC: CHRISTINE Brown ~ Signed [facility] Work Phone: 1(873) 669-433712-12-2023 Miscellaneous Notes* Telephone Encounter - Davina Fajardo - 07/10/2023 9:33 AM EST Patient has been identified by name and date of : Yes Requested Prescriptions Pending Prescriptions Disp Refills tamsulosin (FLOMAX) 0.4 mg 180 capsule 3 Sig: Take 2 capsules by mouth once daily. RX INSTRUCTIONS: Patient aware RX will be sent to [facility] pharmacy. No need to notify patient. Davina Fajardo documented in this encounterThe [facility]12-04-2023 Miscellaneous Notes* Telephone Encounter - Shirley Rivera [...] Thanks, Chaz Durbin PA-C documented in this encounterThe [facility]11-30-2023 History of Present illness Narrative* Radha Durbin PA-C - 06/28/2023 9:00 AM EST 87 year old male with c/o here for 3 month follow up Still having issues with diarrhea, watery to mushy. No pain Moving bowels twice a day, previously once a day. 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) Atherosclerosis of aorta ([facility]) Essential hypertension, benign Hyperlipidemia ldl goal <100 Pad (peripheral artery disease) ([facility]) Cardiovascular interval hx: Sees [place] cardiology: no new records 02/27/2022 exercise myocardial [...] to suggest ischemia. 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 [...] because he felt bad in the mornings. [place] better after he stopped- probably a year [...] lipoma performed by Dr. Robe Mackenzie at [facility] OPN/PRQ FEM/POP W/STNT/ANGIOP SM VSL 03-18-14 [...] Chronic Blood Loss Coronary Artery Disease Involving [place] Coronary Artery of [place] Heart S/P Primary Angioplasty With Coronary Stent [...] normal shape. Lungs are clear to all epna with good air exchange through out. HRRR without murmur or gallop. No lifts, heaves, or rubs. Abdomen: active bowel sounds throughout, soft, nontender, no masses or organomegaly. No CVAT. Extrem: no clubbing or cyanosis. Edema: none. Extremities are warm and pink with prompt capillary refill. ASSESSMENT/PLAN: 1. 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 Radha Durbin PA-C documented in this encounterThe [facility]11-20-2023 Miscellaneous Notes* Telephone Encounter - Naty Cardona LPN - 06/18/2023 9:36 AM EST Appt scheduled 06/28/23 * Telephone Encounter - Catron Sydney Kathleen - 06/18/2023 8:02 AM EST Patient has been identified by name and date of : Yes Requested Prescriptions Pending Prescriptions Disp Refills traZODone (DESYREL) 50 mg tablet 90 tablet 1 Sig: Take 1 tablet by mouth daily at bedtime. RX INSTRUCTIONS: Patient aware RX will be sent to pharmacy. No need to notify patient. 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 Jair Marvin MD documented in this encounterThe [facility]10-23-2023 Miscellaneous Notes* Telephone Encounter - Shirley Rivera [...] Thanks, Chaz Durbin PA-C documented in this encounterThe [facility]10-14-2023 Miscellaneous Notes* Telephone Encounter - Tracy Cedillo [...] no answer * Telephone Encounter - Shirley Rviera Ma - 05/11/2023 5:05 PM EDT ----- [...] Thanks, Chaz Durbin PA-C documented in this encounterThe [facility]10-13-2023 Miscellaneous Notes* Telephone Encounter - Radha Durbin PA-C - 05/11/2023 4:54 PM EDT See other TE Thanks, Chaz Durbin PA-C * Telephone Encounter - Whit Sheridan RN - 05/11/2023 2:30 PM EDT Pt's daughter Pili asking Chaz Durbin to advise on pt's recent CT scan results, when able. Thank you. documented in this encounterThe [facility]10-13-2023 History of Present illness Narrative* Krissy Michel RT(R) - 05/11/2023 11:20 AM EDT Radiology [...] 2023 TIME: 4:07 PM documented in this encounterThe [facility]07-13-2023 Instructions* Patient Instructions* Radha Durbin PA-C - 02/08/2023 10:02 AM EDT Ice/ moist heat, lineaments, OTC analgesics as needed. Stretching and posture reviewed. See handout on piriformis stretching. documented in this encounterThe [facility]07-13-2023 History of Present illness Narrative* Radha Durbin [...] lipoma performed by Dr. Robe Mackenzie at [facility] OPN/PRQ FEM/POP W/STNT/ANGIOP SM VSL 03-18-14 [...] Chronic Blood Loss Coronary Artery Disease Involving [place] Coronary Artery of [place] Heart S/P Primary Angioplasty With Coronary Stent [...] or gallop. No lifts, heaves, or rubs. centrifugal machine tender over right lumbar paravertebrals, right piriformis. Left [...] history context and comparison. documented in this encounterThe [facility]07-05-2023 History of Present illness Narrative* Rebekah Salazar PA-C - 01/31/2023 1:38 PM EDT This note was created using [employer]. Subjective Clark Lyles is a 87 year [...] lipoma performed by Dr. Robe Mackenzie at [facility] OPN/PRQ FEM/POP W/STNT/ANGIOP SM VSL 03-18-14 [...] AP/LAT/L5-S1 Rebekah Salazar PA-C documented in this encounterThe [facility]07-05-2023 History of Present illness Narrative* Yeimi Prajapati [...] 31, 2023 11:04 AM documented in this encounterThe [facility]06-16-2023 Miscellaneous Notes* Telephone Encounter - Юлия Deng LPN - 01/12/2023 10:22 AM EDT Patient daughter Pili ptety father has been taking Trazodone 50 mg [...] you. Юлия Deng LPN documented in this encounterThe [facility] Hospital05-04-2023 Miscellaneous Notes* Telephone Encounter - Whit Sheridan RN - 11/30/2022 10:38 AM EDT Images from the original note were not included. Patient's daughter Pili Payne, notified. ZACKARY Vines PA-C 11/30/2022 9:01 AM EDT Please let him know labs all look good. Thanks, Chaz Durbin PA-C documented in this encounterThe [facility] Hospital05-01-2023 Instructions* Patient Instructions* Radha Durbin PA-C - [...] Last Reviewed Date 2019-11-20 documented in this encounterThe [facility] Hospital05-01-2023 History of Present illness Narrative* Radha Durbin [...] (primary encounter diagnosis) Pad (peripheral artery disease) ([facility]) Hyperlipidemia ldl goal <100 Essential hypertension, benign Angina pectoris (hcc) Cardiovascular interval hx: Sees [place] cardiology 02/27/2022 exercise myocardial perfusion stress test [...] to suggest ischemia. 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 [...] current. 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 Seemed better when he went outside. Has happened 2 years ago. Father had low sugar. Doesn't eat prior to restorationism and then goes out to [facility] after. Unexplainable fatigue No Leg swelling: No Nausea: No diaphoresis: No Heartburn: No Claudication: No Smoking: No Following Low cholesterol, high fiber diet? Yes If on statin: muscle aches? No If on statin: GI sx or diarrhea? No Additional history does a lot of mowing. 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 Lab review: [...] lipoma performed by Dr. Robe Mackenzie at [facility] OPN/PRQ FEM/POP W/STNT/ANGIOP SM VSL 03-18-14 [...] Chronic Blood Loss Coronary Artery Disease Involving [place] Coronary Artery of [place] Heart S/P Primary Angioplasty With Coronary Stent [...] this visit. COVID-19 VACCINE(4 - Booster for Tutellus series) due on 07/13/2021 ADVANCE DIRECTIVE DISCUSSION [...] TABLET Radha Durbin PA-C [facility] Miscellaneous Notes* Telephone Encounter - Clarence Winters [...] notify patient. Charity Zhou documented in [facility]The [facility]12[facility] Miscellaneous Notes* Telephone Encounter - Tracy Lambert [...] Thank you. Tracy Lambert documented in [facility] encounterThe [facility]09[facility] Miscellaneous Notes* Telephone Encounter - Mague Steinre MA - 04/10/2022 10:23 AM EDT Patient [...] advise. Tamra Baez Pss documented in this encounterThe [facility]06-[facility] Miscellaneous Notes* Telephone Encounter - Theresa Barbour [...] patient. Theresa Barbour Pss documented in [facility] encounterThe [facility] Evaluation note* Diagnosis Onset Date Resolution Status Essential (primary) hypertension chronic Hyperlipidemia chronic Peripheral vascular occlusive disease chronic History of coronary artery stent placement September 082019 resolved [facility] Work Phone: [phone]) 360-342202-01-2018 Evaluation note* Diagnosis Onset Date Resolution Status BPH (benign prostatic hyperplasia) acute History of angioplasty of peripheral vessel August, acute Hypokalemia acute Hypoxia acute Pneumonia acute SOB (shortness of breath) [place] Essential (primary) hypertension chronic History of coronary artery stent placement September 082019 [facility] Work Phone: Evaluation note* Diagnosis Gastroesophageal reflux disease, unspecified whether esophagitis present [facility] Diagnosis Benign prostatic hyperplasia with nocturia [facility] noteNo assessment information availableWBarberton Citizens [facility] Work Phone: Evaluation note* Diagnosis S/P primary angioplasty with coronary stent Postsurgical percutaneous transluminal coronary angioplasty status PAD (peripheral artery disease) (HCC) Peripheral vascular disease, unspecified Hyperlipidemia LDL goal <100 Other and unspecified hyperlipidemia Anxiety state Anxiety state, unspecified Essential hypertension, benign Benign prostatic hyperplasia with nocturia [facility]* Diagnosis S/P primary angioplasty with coronary [...] insomnia Insomnia, unspecified [facility]* Diagnosis Gastroesophageal reflux disease, unspecified whether esophagitis present Anxiety state Anxiety state, unspecified Chronic insomnia Insomnia, unspecified [facility]* Diagnosis Back pain of lumbar region with sciatica- Primary [facility]* Diagnosis Piriformis syndrome, left- Primary Somatic dysfunction of left sacroiliac joint [facility]* Diagnosis Abrasion of anterior right lower leg, initial encounter- Primary [facility]* Diagnosis Atherosclerosis of aorta (HCC) Atherosclerosis of aorta documented [facility]* Diagnosis Anxiety state Anxiety state, unspecified Chronic insomnia Insomnia, unspecified [facility]* Diagnosis 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- Primary S/P primary [...] Diarrhea, unspecified type [facility]* Diagnosis Benign prostatic hyperplasia with nocturia documented [facility] this [facility]* Diagnosis Onset Date Resolution Status Hypokalemia acute Hypoxia acute Pneumonia acute SOB (shortness of breath) [facility] Work Phone: Evaluation note* Diagnosis 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 S/P primary angioplasty [...] Pneumonia, organism unspecified documented in this [facility]* Diagnosis Anxiety state Anxiety state, unspecified Chronic insomnia Insomnia, unspecified [facility]* Diagnosis 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- Primary S/P primary [...] disorder, mild, abuse documented [facility]* Diagnosis Benign prostatic hyperplasia with nocturia S/P primary angioplasty with coronary stent Postsurgical percutaneous transluminal coronary angioplasty status documented in this [facility]* Diagnosis Left sided abdominal pain- Primary Abdominal pain, unspecified site Essential hypertension, benign [facility]* Diagnosis S/P primary angioplasty with coronary stent Postsurgical percutaneous transluminal coronary angioplasty status PAD (peripheral artery disease) (HCC) Peripheral vascular disease, unspecified [facility]* Diagnosis S/P primary angioplasty with coronary stent Postsurgical percutaneous transluminal coronary angioplasty status PAD (peripheral artery disease) (HCC) Peripheral vascular disease, unspecified Hyperlipidemia LDL goal <100 Other and unspecified hyperlipidemia Anxiety state Anxiety state, unspecified Benign prostatic hyperplasia with nocturia Essential hypertension, benign Left sided abdominal pain Abdominal pain, unspecified site [facility]* Diagnosis Back pain of lumbar region with sciatica documented [facility]* Diagnosis Essential hypertension, benign [facility]* Diagnosis Chronic insomnia- Primary Insomnia, unspecified Benign prostatic hyperplasia with nocturia Screening for depression Hyperlipidemia LDL goal <100 Other and unspecified hyperlipidemia Essential hypertension, benign Parkinson's disease without dyskinesia, unspecified whether manifestations fluctuate (HCC) 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 Acute respiratory failure with hypoxia (HCC) Acute respiratory failure documented in this encounter [facility] note* Diagnosis 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 Chronic obstructive pulmonary disease with acute lower respiratory infection (HCC) Obstructive chronic bronchitis with exacerbation documented in this encounter [facility] Work Phone: Reason for referral (narrative)* Diagnostic Procedure Only (Urgent) - Closed Specialty Diagnoses / Procedures Referred By Armando t Referred To Contact XR IMAGING Diagnoses Back pain of lumbar region with sciatica Procedures XR LUMBAR GENERAL 3V AP/LAT/L5-S1 RADEX SPINE LUMBOSACRAL 2/3 VIEWS Rebekah Salazar PA-C [address] [place] [address] Xr Imaging Referral ID Status Reason Start Date Expiration Date V isits Requested Visits Authorized [id number] Closed Auto-Generate d Referral 01/31/2023 03/01/2024 1 1 [facility] for referral (narrative)* Diagnostic Procedure Only (Urgent) - Closed Specialty Diagnoses / Procedures Referred By Contac t Referred To Contact XR IMAGING Diagnoses Back pain of lumbar region with sciatica Procedures XR LUMBAR GENERAL 3V AP/LAT/L5-S1 RADEX SPINE LUMBOSACRAL 2/3 VIEWS Rebekah Salazar PA-C [address] [place] [address] [place] [address] Referral ID Status Reason Start Date Expiration Date V isits Requested Visits Authorized [id number] Closed Auto-Generate d Referral 01/31/2023 03/01/2024 1 1 [facility] for visit Narrative* Diagnostic Procedure Only (Urgent) - Closed Specialty Diagnoses / Procedures Referred By Contac t Referred To Contact XR IMAGING Diagnoses Back pain of lumbar region with sciatica Procedures XR LUMBAR GENERAL 3V AP/LAT/L5-S1 RADEX SPINE LUMBOSACRAL 2/3 VIEWS Rebekah Salazar PA-C [address] [place] [address] [place] [address] Referral ID Status Reason Start Date Expiration Date V isits Requested Visits Authorized [id number] Closed Auto-Generate d Referral 01/31/2023 03/01/2024 1 1 [facility] Chief Complaint and Reason for Visit Chief [...] Relationship Condition Age at Onset Recorded Date/T palomo father Cerebrovascular accident (CVA) Unknown mother Cerebrovascular accident (CVA) Unknown Hypertension Unknown Advance Directives Advance Directive Response Recorded Date/ Time Advance Directives Yes August 9:34am Living Will No September 18 11:19am Power of Paper Products Machine Operator No September 18, 2021 11:19am Advance Directive Response Recorded Date/ Time Advance Directives Yes August 8:34am Living Will No June 21 022 9:59pm Power of Paper Products Machine Operator No June 21, 2022 9:59pm Advance Directive Response Recorded Date/ Time Advance Directives Yes August 8:34am Living Will Yes August 01 1:05pm Power of Paper Products Machine Operator Yes August 01 1:05pm Name of Medical Power of Paper Products Machine Operator nick payne, daughter and quincy lyles, son August 01, 2023 1:05pm Advance Directive Response Recorded Date/ Time Name of Medical Power of Paper Products Machine Operator nick payne, daughter and quincy lyles, son August 01, 2023 5:46pm Advance Directives Yes August 8:34am Living Will Yes August 01 5:46pm Power of Paper Products Machine Operator Yes August 01 5:46pm Advance Directive Response Recorded Date/ Time Living Will Yes September 07 3:15pm Do you have a Healthcare Power of Paper Products Machine Operator? Yes September 07, 2024 3:15pm Name of Medical Power of Paper Products Machine Operator quincy September 07, 2024 3:15pm Advance Directives Yes August 9:34am Reason for Referral Specialty Diagnoses / Procedures Referred By Contac t Referred To Contact CT IMAGING Diagnoses Atherosclerosis of aorta (HCC) Procedures CTA ABD/PEL W IVCON CT ANGIO ABD&PLVIS CNTRST MTRL W/WO CNTRST IMGES Radha Durbin PA-C [address] [place] [address] [place] [address] Referral ID Status Reason Start Date Expiration Date V isits Requested Visits Authorized [id number] Closed Auto-Generate d Referral 04/30/2023 07/29/2023 1 1 Specialty Diagnoses / Procedures Referred By Contac t Referred To Contact Neurology Diagnoses Parkinson's disease without dyskinesia, with fluctuating manifestations (HCC) Procedures CONSULT TO NEUROLOGY OFFICE/OUTPATIENT [facility] 60 MINUTES Radha Durbin PA-C [address] [place] [address] Referral ID Status Reason Start Date Expiration Date Visits Requested Visits Authorized [id number] Authorized PCP Requested Referral 12/25/2023 12/24/2024 1 1 Summary Purpose Additional Source Comments Source Comments (unrecognize d section and content) In the event this informatio n is protected by the Federal Confidentiality of Alcohol and Drug Abuse Patient Records regulations: The Federal rules restrict any use of the information to criminally investigate or prosecute any alcohol or drug abuse patient.[facility] HospitalIn the event this information is protected by the Federal Confidentiality of Alcohol and Drug Abuse Patient Records regulations: The Federal rules restrict any use of the information to criminally investigate or prosecute any alcohol or drug abuse patient.[facility] HospitalIn the event this information is protected by the Federal Confidentiality of Alcohol and Drug Abuse Patient Records regulations: The Federal rules restrict any use of the information to criminally investigate or prosecute any alcohol or drug abuse patient.[facility] HospitalIn the event this information is protected by the Federal Confidentiality of Alcohol and Drug Abuse Patient Records regulations: The Federal rules restrict any use of the information to criminally investigate or prosecute any alcohol or drug abuse patient.[facility] HospitalIn the event this information is protected by the Federal Confidentiality of Alcohol and Drug Abuse Patient Records regulations: The Federal rules restrict any use of the information to criminally investigate or prosecute any alcohol or drug abuse patient.[facility] HospitalIn the event this information is protected by the Federal Confidentiality of Alcohol and Drug Abuse Patient Records regulations: The Federal rules restrict any use of the information to criminally investigate or prosecute any alcohol or drug abuse patient.[facility] HospitalIn the event this information is protected by the Federal Confidentiality of Alcohol and Drug Abuse Patient Records regulations: The Federal rules restrict any use of the information to criminally investigate or prosecute any alcohol or drug abuse patient.[facility] HospitalIn the event this information is protected by the Federal Confidentiality of Alcohol and Drug Abuse Patient Records regulations: The Federal rules restrict any use of the information to criminally investigate or prosecute any alcohol or drug abuse patient.[facility] HospitalIn the event this information is protected by the Federal Confidentiality of Alcohol and Drug Abuse Patient Records regulations: The Federal rules restrict any use of the information to criminally investigate or prosecute any alcohol or drug abuse patient.[facility] HospitalIn the event this information is protected by the Federal Confidentiality of Alcohol and Drug Abuse Patient Records regulations: The Federal rules restrict any use of the information to criminally investigate or prosecute any alcohol or drug abuse patient.[facility] HospitalIn the event this information is protected by the Federal Confidentiality of Alcohol and Drug Abuse Patient Records regulations: The Federal rules restrict any use of the information to criminally investigate or prosecute any alcohol or drug abuse patient.[facility] HospitalIn the event this information is protected by the Federal Confidentiality of Alcohol and Drug Abuse Patient Records regulations: The Federal rules restrict any use of the information to criminally investigate or prosecute any alcohol or drug abuse patient.[facility] HospitalIn the event this information is protected by the Federal Confidentiality of Alcohol and Drug Abuse Patient Records regulations: The Federal rules restrict any use of the information to criminally investigate or prosecute any alcohol or drug abuse patient.[facility] HospitalIn the event this information is protected by the Federal Confidentiality of Alcohol and Drug Abuse Patient Records regulations: The Federal rules restrict any use of the information to criminally investigate or prosecute any alcohol or drug abuse patient.[facility] HospitalIn the event this information is protected by the Federal Confidentiality of Alcohol and Drug Abuse Patient Records regulations: The Federal rules restrict any use of the information to criminally investigate or prosecute any alcohol or drug abuse patient.[facility] HospitalIn the event this information is protected by the Federal Confidentiality of Alcohol and Drug Abuse Patient Records regulations: The Federal rules restrict any use of the information to criminally investigate or prosecute any alcohol or drug abuse patient.[facility] HospitalIn the event this information is protected by the Federal Confidentiality of Alcohol and Drug Abuse Patient Records regulations: The Federal rules restrict any use of the information to criminally investigate or prosecute any alcohol or drug abuse patient.[facility] HospitalIn the event this information is protected by the Federal Confidentiality of Alcohol and Drug Abuse Patient Records regulations: The Federal rules restrict any use of the information to criminally investigate or prosecute any alcohol or drug abuse patient.[facility] HospitalIn the event this information is protected by the Federal Confidentiality of Alcohol and Drug Abuse Patient Records regulations: The Federal rules restrict any use of the information to criminally investigate or prosecute any alcohol or drug abuse patient.[facility] HospitalIn the event this information is protected by the Federal Confidentiality of Alcohol and Drug Abuse Patient Records regulations: The Federal rules restrict any use of the information to criminally investigate or prosecute any alcohol or drug abuse patient.[facility] HospitalIn the event this information is protected by the Federal Confidentiality of Alcohol and Drug Abuse Patient Records regulations: The Federal rules restrict any use of the information to criminally investigate or prosecute any alcohol or drug abuse patient.[facility] HospitalIn the event this information is protected by the Federal Confidentiality of Alcohol and Drug Abuse Patient Records regulations: The Federal rules restrict any use of the information to criminally investigate or prosecute any alcohol or drug abuse patient.[facility] HospitalIn the event this information is protected by the Federal Confidentiality of Alcohol and Drug Abuse Patient Records regulations: The Federal rules restrict any use of the information to criminally investigate or prosecute any alcohol or drug abuse patient.[facility] HospitalIn the event this information is protected by the Federal Confidentiality of Alcohol and Drug Abuse Patient Records regulations: The Federal rules restrict any use of the information to criminally investigate or prosecute any alcohol or drug abuse patient.[facility] HospitalIn the event this information is protected by the Federal Confidentiality of Alcohol and Drug Abuse Patient Records regulations: The Federal rules restrict any use of the information to criminally investigate or prosecute any alcohol or drug abuse patient.[facility] HospitalIn the event this information is protected by the Federal Confidentiality of Alcohol and Drug Abuse Patient Records regulations: The Federal rules restrict any use of the information to criminally investigate or prosecute any alcohol or drug abuse patient.[facility] HospitalIn the event this information is protected by the Federal Confidentiality of Alcohol and Drug Abuse Patient Records regulations: The Federal rules restrict any use of the information to criminally investigate or prosecute any alcohol or drug abuse patient.[facility] HospitalIn the event this information is protected by the Federal Confidentiality of Alcohol and Drug Abuse Patient Records regulations: The Federal rules restrict any use of the information to criminally investigate or prosecute any alcohol or drug abuse patient.[facility] HospitalIn the event this information is protected by the Federal Confidentiality of Alcohol and Drug Abuse Patient Records regulations: The Federal rules restrict any use of the information to criminally investigate or prosecute any alcohol or drug abuse patient.[facility] HospitalIn the event this information is protected by the Federal Confidentiality of Alcohol and Drug Abuse Patient Records regulations: The Federal rules restrict any use of the information to criminally investigate or prosecute any alcohol or drug abuse patient.[facility] HospitalIn the event this information is protected by the Federal Confidentiality of Alcohol and Drug Abuse Patient Records regulations: The Federal rules restrict any use of the information to criminally investigate or prosecute any alcohol or drug abuse patient.[facility] HospitalIn the event this information is protected by the Federal Confidentiality of Alcohol and Drug Abuse Patient Records regulations: The Federal rules restrict any use of the information to criminally investigate or prosecute any alcohol or drug abuse patient.[facility] HospitalIn the event this information is protected by the Federal Confidentiality of Alcohol and Drug Abuse Patient Records regulations: The Federal rules restrict any use of the information to criminally investigate or prosecute any alcohol or drug abuse patient.[facility] HospitalIn the event this information is protected by the Federal Confidentiality of Alcohol and Drug Abuse Patient Records regulations: The Federal rules restrict any use of the information to criminally investigate or prosecute any alcohol or drug abuse patient.[facility] HospitalIn the event this information is protected by the Federal Confidentiality of Alcohol and Drug Abuse Patient Records regulations: The Federal rules restrict any use of the information to criminally investigate or prosecute any alcohol or drug abuse patient.[facility] HospitalIn the event this information is protected by the Federal Confidentiality of Alcohol and Drug Abuse Patient Records regulations: The Federal rules restrict any use of the information to criminally investigate or prosecute any alcohol or drug abuse patient.[facility] HospitalIn the event this information is protected by the Federal Confidentiality of Alcohol and Drug Abuse Patient Records regulations: The Federal rules restrict any use of the information to criminally investigate or prosecute any alcohol or drug abuse patient.[facility] Reason for Visit (unrecogniz ed section and [...] 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 1 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 Reason Comments Radiology CT Specialty Diagnoses / Procedures Referred By Armando t Referred To Contact CT IMAGING Diagnoses Atherosclerosis of aorta (HCC) Procedures CTA ABD/PEL W IVCON CT ANGIO ABD&PLVIS CNTRST MTRL W/WO CNTRST Radha Bob PA-C [address] [place] [address] [place] [address] Referral ID Status Reason Start Date Expiration Date V isits Requested Visits Authorized [id number] Closed Auto-Generate d Referral 04/30/2023 07/29/2023 1 [...] Health PT Plan of Care Reason Comments [facility] Plan of Care Reason Comments Oxygen FYI-No Action Needed Reason Comments Orders patient POC Reason Comments Patient Update Reason Comments 31510 Initial Consult Care Teams (unrecognized sec tion and content) [employer]ing [employer] Operator Relationship Specialty Start Date End Date Radha Durbin PA-C [address] [place] [address] PCP - General Family Practice 09/20/21 [employer] Operator Relationship Specialty Start Date End Date Radha Durbin PA-C [address] [place] [address] PCP - General Family Medicine 09/20/21 [employer] Print[employer] Press Operator Relationship Specialty Start Date End Date Radha Durbin PA-C [address] [place] [address] PCP - General Family Medicine 09/20/21 [employer] Print[employer] Press Operator Relationship Specialty Start Date End Date Radha Durbin PA-C [address] [place] [address] PCP - General Family Medicine 09/20/21 Screen Printing Press Operator Relationship Specialty Start Date End Date Radha Durbin PA-C [address] [place] [address] PCP - General Family Medicine 09/20/21 Screen Printing Press Operator Relationship Specialty Start Date End Date Radha Durbin PA-C [address] [place] [address] PCP - General Family Medicine 09/20/21 Screen Printing Press Operator Relationship Specialty Start Date End Date Radha Durbin PA-C [address] [place] [address] PCP - General Family Medicine 09/20/21 Screen Printing Press Operator Relationship Specialty Start Date End Date Radha Durbin PA-C [address] [place] [address] PCP - General Family Medicine 09/20/21 Screen Printing Press Operator Relationship Specialty Start Date End Date Radha Durbin PA-C [address] [place] [address] PCP - General Family Medicine 09/20/21 Screen Printing Press Operator Relationship Specialty Start Date End Date Radha Durbin PA-C [address] [place] [address] PCP - General Family Medicine 09/20/21 Screen Printing Press Operator Relationship Specialty Start Date End Date Radha Durbin PA-C [address] [place] [address] PCP - General Family Medicine 09/20/21 Screen Printing Press Operator Relationship Specialty Start Date End Date Radha Durbin PA-C [address] [place] [address] PCP - General Family Medicine 09/20/21 Screen Printing Press Operator Relationship Specialty Start Date End Date Radha Durbin PA-C [address] [place] [address] PCP - General Family Medicine 09/20/21 Screen Printing Press Operator Relationship Specialty Start Date End Date Radha Durbin PA-C [address] [place] [address] PCP - General Family Medicine 09/20/21 Screen Printing Press Operator Relationship Specialty Start Date End Date Radha Durbin PA-C [address] [place] [address] PCP - General Family Medicine 09/20/21 Screen Printing Press Operator Relationship Specialty Start Date End Date Radha Durbin PA-C [address] [place] [address] PCP - General Family Medicine 09/20/21 Team [...] Dr. Jerrell Faith MD Attending Provider Active Screen Printing Press Operator Relationship Specialty Start Date End Date Radha Durbin PA-C [address] [place] [address] PCP - General Family Medicine 09/20/21 Screen Printing Press Operator Relationship Specialty Start Date End Date Radha Durbin PA-C [address] [place], [place] [address] PCP - General Family Medicine 09/20/21 Screen Printing Press Operator Relationship Specialty Start Date End Date Radha Durbin PA-C [address] [place], [place] [address] PCP - General Family Medicine 09/20/21 Screen Printing Press Operator Relationship Specialty Start Date End Date Radha Durbin PA-C [address] [place], [place] [id number] PCP - General Family Medicine 09/20/21 Screen Printing Press Operator Relationship Specialty Start Date End Date Radha Durbin PA-C [address] [place] [address] PCP - General Family Medicine 09/20/21 Screen Printing Press Operator Relationship Specialty Start Date End Date Radha Durbin PA-C [address] [place] [address] PCP - General Family Medicine 09/20/21 Screen Printing Press Operator Relationship Specialty Start Date End Date Radha Durbin PA-C [address] [place] [address] PCP - General Family Medicine 09/20/21 Screen Printing Press Operator Relationship Specialty Start Date End Date Radha Durbin PA-C [address] [place] [address] PCP - General Family Medicine 09/20/21 Screen Printing Press Operator Relationship Specialty Start Date End Date Brigitte Segal, FINISHER BR[employer].QUALITY CONTROL LAB TECHNICIAN [address] [place] [address] PCP - General Family Medicine 09/08/24 Yuliana Patton, FINISHER [employer].QUALITY CONTROL LAB TECHNICIAN [address] [facility] [place] [address] Can [facility] Family [facility] 07/04/24 Brigitte Segal, FINISHER [employer].QUALITY CONTROL LAB TECHNICIAN [address] [place] [address] [facility] 07/04/24 Screen Printing Press Operator Relationship Specialty Start Date End Date Brigitte Segal, FINISHER BR[employer].QUALITY CONTROL LAB TECHNICIAN [address] [place] [address] PCP - General Family Medicine 09/08/24 Yuliana Patton, FINISHER BR[employer].QUALITY CONTROL LAB TECHNICIAN [address] [place] [address] [facility] 07/04/24 Brigitte Segal, FINISHER BR[employer].QUALITY CONTROL LAB TECHNICIAN [address] [place] [address] [facility] Screen Printing Press Operator Relationship Specialty Start Date End Date Brigitte Segal, FINISHER BR[employer].QUALITY CONTROL LAB TECHNICIAN [address] [place] [address] PCP - General Family Medicine 09/08/24 Yuliana Patton, FINISHER BR[employer].QUALITY CONTROL LAB TECHNICIAN [address] [place] [address] [facility]/04/24 Brigitte Segal, FINISHER BR[employer].QUALITY CONTROL LAB TECHNICIAN [address] [place] [address] [facility] 07/04/24 Screen Printing Press Operator Relationship Specialty Start Date End Date Brigitte Segal, FINISHER BR[employer].QUALITY CONTROL LAB TECHNICIAN [address] [place] [address] PCP - General Family Medicine 09/08/24 Yuliana Patton, FINISHER BR[employer].QUALITY CONTROL LAB TECHNICIAN [address] [place] [address] [facility] 07/04/24 Brigitte Segal, FINISHER BR[employer].QUALITY CONTROL LAB TECHNICIAN [address] [place] [address] [facility] 07/04/24 Screen Printing Press Operator Relationship Specialty Start Date End Date Brigitte Segal, FINISHER BR[employer].QUALITY CONTROL LAB TECHNICIAN [address] [place] [address] PCP - General Family Medicine 09/08/24 Yuliana Patton, FINISHER [employer].QUALITY CONTROL LAB TECHNICIAN [address] [facility] [place] [address] [facility] 07/04/24 Brigitte Segal, FINISHER BR[employer].QUALITY CONTROL LAB TECHNICIAN [address] [place] [address] [facility] 07/04/24 Screen Printing Press Operator Relationship Specialty Start Date End Date Brigitte Segal, FINISHER BR[employer].QUALITY CONTROL LAB TECHNICIAN [address] [place] [address] PCP - General Family Medicine 09/08/24 Yuliana Patton, FINISHER BR[employer].QUALITY CONTROL LAB TECHNICIAN [address] [facility] [place] [address] [facility] 07/04/24 Brigitte Segal, FINISHER BR[employer].QUALITY CONTROL LAB TECHNICIAN [address] [place] [address] [facility] 07/04/24 Screen Printing Press Operator Relationship Specialty Start Date End Date Brigitte Segal, FINISHER BR[employer].QUALITY CONTROL LAB TECHNICIAN [address] [place] [address] PCP - General Family Medicine 09/08/24 Screen Printing Press Operator Relationship Specialty Start Date End Date Brigitte Segal, FINISHER BR[employer].QUALITY CONTROL LAB TECHNICIAN [address] [place] [address] PCP - General Family Medicine 09/08/24 Yuliana Patton, FINISHER BR[employer].QUALITY CONTROL LAB TECHNICIAN [address] [facility], [place] [address] [facility]/04/24 10/20/24 Brigitte Segal, FINISHER BR[employer].QUALITY CONTROL LAB TECHNICIAN [address] [facility], [place] [address] [facility] 07/04/24 10/20/24 Screen Printing Press Operator Relationship Specialty Start Date End Date Brigitte Segal, FINISHER BR[employer].QUALITY CONTROL LAB TECHNICIAN [address] [facility], [place] [address] PCP - General Family Medicine 09/08/24 Team [...] Start: September 08, 2024 Brigitte Suppan , VARNISHING UNIT OPERATOR Primary Care Provider Active Start: September 08, [...] Member Role Status Dates Brigitte Suppan , VARNISHING UNIT OPERATOR Primary Care Provider Active Start: September 08, 2024 Dr. Dejuan Brooks MD Attending Provider Active S tart: September 08, 2024 Team Status: Active Member Role Status Dates Dr. Neo Tejeda DO Emergency Provider Active Start: September 09, 2024 Brigitte Suppan , VARNISHING UNIT OPERATOR Primary Care Provider Active Start: September 09, [...] Start: September 10, 2024 Brigitte Suppan , VARNISHING UNIT OPERATOR Primary Care Provider Active Start: September 10, 2024 Dr. Jerrell Faith MD Admit Provider Active Star t: September 10, 2024 Dr. Jerrell Faith MD Other Provider Active Star t: September 10, 2024 Dr. Letser Perdomo DO Attending Provider Active Start: September 10, 2024 Dr. Lester Perdomo DO Other Provider Active Star t: September 10, 2024 Team Status: Active Member Role Status Dates Dr. Neo Tejeda DO Emergency Provider Active Start: September 11, 2024 Brigitte Suppan , VARNISHING UNIT OPERATOR Primary Care Provider Active Start: September 11, [...] Start: September 12, 2024 Brigittemillicent Segal , VARNISHING UNIT OPERATOR Primary Care Provider Active Start: September 12, [...] Start: September 13, 2024 Brigitte Segal , VARNISHING UNIT OPERATOR Primary Care Provider Active Start: September 13, [...] Start: September 14, 2024 Brigitte Segal , VARNISHING UNIT OPERATOR Primary Care Provider Active Start: September 14, [...] Start: September 15, 2024 Brigitte Segal , VARNISHING UNIT OPERATOR Primary Care Provider Active Start: September 15, [...] 2024 End: October 16, 2024 Kalyn Taylor GUIDE DELEGATE, GUIDE DELEGATE-C Attending Provider Active Start: October 16, 2024 [...] section and content) DATE CREATED AUTHOR 10/18/2024 [facility] DATE CREATED AUTHOR AUTHOR'S ORGANIZ ATION 11/02/2024 [facility] DATE CREATED AUTHOR AUTHOR'S ORGANIZ ATION 2024 [facility] FOR RECORDS PERTAINING TO PATIENTS WHO ARE [...] BE BASED ON THE PRIMARY CLINICAL RECORDS. [employer] provides no warranty or guarantee of the accuracy or completeness of information in this document.
--- NOTE | 2025-02-08 18:45 | PCM.HP.STD ---
HPI - General General Date of Admission: 02/08/25 Date of Service: 02/08/25 Chief Complaint: Confusion, slurred speech. HPI Narrative The patient is an 89 y/o M w/ PMHx: Pulmonary HTN/? COPD w/ Chronic Hypoxic Respiratory Failure (4L NC at home), ? CKD stage III per GFR trending, CAD s/p PCI, PAD s/p BL LE PCI with single stent in each LE per family report, HTN, HLD, Former tobacco use who presents to the [facility] ED on 02/10/2025 with history of last known well at approximately 1300 on day of presentation with onset at 2:30 PM significant dysarthria although at that point was drinking whiskey but only reports taking small sips not normally drinking per family report or at least they do not witness him routinely drinking and given his significant dysarthria/altered speech as well as confusion prompted ED evaluation. In the ED initial NIH stroke scale assessment per neurology noted to be 1 for mild to moderate dysarthria. Family does report that when he was found and initially noted to be confused it was when he was getting up from a nap specifically. When family was bringing him in to the hospital to attempt to be evaluated he was very weak and slid to the floor but there was no trauma or loss of consciousness. Workup in the ED included T98, heart rate 58, BP 118/65, respiratory rate 19, 90% on 6 L nasal cannula with most recent repeat vitals heart rate 59, BP 119/61, respiratory rate 20, 91% on 6 L nasal cannula, CBC with WC 10.1, he 116.3, platelet 200 with increased immature granulocytes, unremarkable coags, BMP with come DexPak 20, anion gap 18, BUN/creat 23/1.39, GFR 52, glucose 102, troponin initial 29, ethyl alcohol pending upon evaluation, CT of the head with no acute intracranial findings, CTA head and neck with no hemodynamically significant narrowing or large vessel occlusion in the head or neck, solid pulmonary nodule right upper lobe measuring 1.4 cm with extensive lymphadenopathy throughout the visualized upper mediastinum, right frontal lobe extra-axial focus of enhancement up to 8 mm possibly meningioma however unable to rule out metastatic lesion, CT cervical spine with no acute osseous finding of the cervical spine, EKG with sinus rhythm with no acute evidence of ischemia. Patient was a stroke alert evaluation and was deemed not a candidate for tenecteplase. [facility] Medical History Chronic hypoxic respiratory failure, on home oxygen therapy Pulmonary hypertension COPD (chronic obstructive pulmonary disease) COVID-19 virus detected (08/23/20) Anxiety and depression Chronic anemia Pneumonia due to COVID-19 virus GI bleed (12/2019) Atherosclerosis of coronary artery of jamul heart without angina pectoris Peripheral vascular occlusive disease Hyperlipidemia Essential (primary) hypertension GERD (gastroesophageal reflux disease) BPH (benign prostatic hyperplasia) Incontinence Diverticulosis Home Medications ?Medication ?Instructions ?Recorded ?Last Taken ?Type citalopram 20 mg tablet 20 mg PO DAILY DEPRESSION 03/17/14 08/01/23 History multivitamin 1 ea PO DAILY HEALTH MINENANCE 05/16/17 08/01/23 History tamsulosin 0.4 mg capsule 0.4 mg PO DAILY PROSTATE 09/04/19 08/01/23 History ascorbic acid (vitamin C) 1,000 mg 1,000 mg PO DAILY SUPPLEMENT 01/18/20 08/01/23 History tablet atorvastatin 10 mg tablet 10 mg PO DAILY CHOLESTEROL 08/25/20 08/01/23 History clopidogrel 75 mg tablet 75 mg PO DAILY BLOOD THINNER 08/25/20 08/01/23 History finasteride 5 mg tablet 5 mg PO DAILY PROSTATE 08/26/20 08/01/23 History metoprolol succinate 25 mg 25 mg PO DAILY BLOOD PRESSURE 08/01/23 08/01/23 History tablet,extended release 24 hr Lactobacillus acidophilus 1 1,000 mmu cells PO DAILY #30 caps 08/04/23 Unknown Rx billion cell capsule hydrochlorothiazide 25 mg tablet 12.5 mg PO DAILY BLOOD PRESSURE 09/07/24 Unknown History pantoprazole 40 mg tablet,delayed 40 mg PO DAILY gerd 09/07/24 Unknown History release amlodipine 5 mg tablet 10 mg (2 x 5 mg) PO DAILY bp 30 09/15/24 Unknown Rx days #0 tabs Allergy/AdvReac Type Severity Reaction Status Date / Time Sulfa (Sulfonamide Allergy Rash Verified 02/08/25 18:40 Antibiotics) lisinopril AdvReac Other Verified 02/08/25 18:40 Family History Father CVA (cerebral vascular accident) Mother CVA (cerebral vascular accident) Hypertension Surgical History History of colonoscopy (12/2019) History of coronary artery stent placement (09/08/19) History of angioplasty of peripheral vessel (08/2017) History of herniorrhaphy History of esophagogastroduodenoscopy (EGD) (12/2019) Social History (Updated 02/08/25 @ 18:[address] Janice Sanford MD) household members: none housing: house Smoking Status: Former smoker how long ago did patient quit smoking: Quit 1999, smoked heavy pipe since youth until quit, occasional cigarette. alcohol intake: current alcohol intake frequency: a few times a week Alcohol type: hard liquor substance use type: does not use ROS ROS Narrative Admission Review of Systems: CONSTITUTIONAL: No weight loss, fever, chills, + weakness or fatigue. HEENT: Eyes: No visual loss, blurred vision, double vision or yellow sclerae. Ears, Nose, Throat: No hearing loss, sneezing, congestion, runny nose or sore throat. SKIN: No rash or itching, lesions, wounds. CARDIOVASCULAR: No chest pain, chest pressure or chest discomfort, palpitations, edema, orthopnea, syncopal events. RESPIRATORY: + Chronic dyspnea with chronic oxygen supplementation. No recent marked productive cough, wheezing, hemoptysis. GASTROINTESTINAL: No anorexia, nausea, vomiting or diarrhea, abdominal pain, melena, BRBPR. GENITOURINARY: No dysuria, frequency, urgency or retention. NEUROLOGICAL: + Dysarthria, slurred speech. No headache, dizziness, syncope, paralysis, ataxia, numbness or tingling in the extremities, focal weakness, change in bowel or bladder control, seizure. MUSCULOSKELETAL: + muscle, back pain, joint pain or stiffness. HEMATOLOGIC: No anemia. + Easy bleeding/bruising. LYMPHATICS: No enlarged nodes. No history of splenectomy. PSYCHIATRIC: No history of depression or anxiety. ENDOCRINOLOGIC: No reports of sweating, cold or heat intolerance. No polyuria or polydipsia. ALLERGIES: No history of asthma, hives, eczema or rhinitis. Vital Signs Vital Signs Vital Signs: 02/08/25 16:48 Temperature 98 F Temperature Source Oral Weight Weight: 156 lb Body Mass Index (BMI) 22.4 Physical Exam Narrative Physical Examination: General: Awake, alert, oriented to self, place, year but gives the wrong month, gives correct holiday recently, remains cooperative, seated upright in ED bed, severely hard of hearing, speech is improved per family report but still confused. Skin: Normal color, normal turgor, no icterus, no cyanosis except occasional stage ecchymoses, abrasion. HEENT: AT/NC, EOMI, PERRLA, MMM, no carotid bruits or JVD noted. Lungs: CTA bilaterally, moderate effort, mild decrease BL bases, no rales, ronchi or wheezing. Heart: Regular rate and rhythm; no gallop, rub audible. Abdomen: Soft, NTTP, ND, normal BS, no HSM. Extremities: No cyanosis, clubbing, or edema. Neurological: Patient awake, alert, oriented as noted, cognitive function suspect not baseline intact; pupils equally reactive to light and accommodation, cranial nerves grossly normal, moving all 4 extremities, no focal deficits, sensation intact, speech appropriate, remains confused, FTN and HTS appropriate but very difficult following exam request, equivocal Babinski. Psychiatric: Affect appears normal, no acute evidence of depressive or anxiety feelings. Assessment & Plan Assessment/Plan (1) CVA (cerebral vascular accident): PLAN: Plan The patient is an 89 y/o M w/ PMHx: Pulmonary HTN/? COPD w/ Chronic Hypoxic Respiratory Failure (4L NC at home), ? CKD stage III per GFR trending, CAD s/p PCI, PAD s/p BL LE PCI with single stent in each LE per family report, HTN, HLD, Former tobacco use who presents to the [facility] ED on 02/10/2025 with history of last known well at approximately 1300 on day of presentation with onset at 2:30 PM significant dysarthria although at that point was drinking whiskey but only reports taking small sips not normally drinking per family report or at least they do not witness him routinely drinking and given his significant dysarthria/altered speech as well as confusion prompted ED evaluation. #1. Acute altered mentation, dysarthria/slurred speech concerning for Acute CVA: Will admit to PCU, will obtain MRI Brain with and without contrast given concern for possibly meningioma versus metastatic lesion, ECHO, PT/OT/Speech/Nutrition evaluation per protocol. Will allow permissive HTN, maintain on asa, add statin as attending to clarify medication w/ AM FLP, fall precautions. Mag, TSH, FLP, HgbA1c requested. Maintain on fall and aspiration precautions. Continue neurology consultation. #2. Incidentally noted solid pulm nodule right upper lobe as well as extensive lymphadenopathy: CTA head and neck with no hemodynamically significant narrowing or large vessel occlusion in the head or neck, solid pulmonary nodule right upper lobe measuring 1.4 cm with extensive lymphadenopathy throughout the visualized upper mediastinum, will obtain CT Chest with contrast but will need to be performed in 24 hours given recent contrast administration. #3. Incidentally noted right frontal lobe extra-axial focus of enhancement: CTA head and neck with right frontal lobe extra-axial focus of enhancement up to 8 mm possibly meningioma however unable to rule out metastatic lesion, will as noted above obtain MRI with and without contrast given this finding. #4. Possible Chronic Kidney Disease Stage III, unclear subtype per GFR trending: Admission BUN/Cr 23/1.39, GFR 52, baseline renal function unknown and unknown comparison GFR, repeat BMP in AM to further elucidate if this is in fact his chronic level. Will need to continue to closely monitor renal function given #2, #3 with scans planned as noted. #5. CAD: Status post PCI, will continue aspirin, add high-dose statin given current presentation, attempt to clarify his home medications but in the interim given #1 will maintain on permissive hypertension. #6. Hypertension: Will maintain permissive hypertension with as needed agents per stroke protocol given #1. #7. Hyperlipidemia: Unclear if he is on statin, attempting to clarify home medications, will add high-dose regardless given #1, FLP in AM. #8. Former tobacco use: Encourage continued tobacco cessation. #9. Pulmonary HTN/COPD w/ Chronic Hypoxic Respiratory Failure (4L NC at home): Will maintain on oxygen with wean as tolerated to home oxygen supplementation. Currently in the ED following return from CT scan unfortunately off of oxygen requiring up to 10 L nasal cannula, will initiate on aggressive ATC duonebs, PRN albuterol, HOB, IS parameters. #10. DVT prophylaxis: SCDs, will hold on chemoprophylaxis addition pending MRI is unclear potentially metastatic lesion in the brain. #9. CODE status: Patient MICHEL is his son and daughter and living will is currently in place. Discussed CODE status at length including difference between FULL code, DNR-CCA and DNR-CC status. Following discussions about the differences in these status, requested DNR-CCA, no intubation. Did discuss even situation where patient's heart was still beating but he was in respiratory failure and requested to avoid intubation also at that time. Advanced Care Planning Face to Face Time: 16 minutes. Charges/Coding Visit Charges Inpatient E&M: 83700 Init Hosp L3 Procedures Hospitalists Procedures: 75450 Advncd Care Plan 30 Min
[2025-02-08 18:49] LABS: Alcohol, Blood (Medical)-Serum 223.0 mg/dL (<=10.0)
[2025-02-08 18:49] LABS: Hematocrit 47.7 % (40-54); Hemoglobin 16.3 g/dL (13.0-16.5); Mean Corpuscular Volume 89.5 fL (80-94); Red Blood Count 5.33 M/mm3 (4.6-6.2); White Blood Count 10.1 K/mm3 (4.4-11.0)
[2025-02-08 18:50] LABS: Mean Corp Hgb Conc 34.2 g/dL (32-36); Mean Platelet Vol. 11.3 fl (6.2-12.0); Platelet Count 200 K/mm3 (150-450); RBC Distribution Width CV 14.8 % (11.6-14.6); RBC Distribution Width SD 47.8 fl (35.1-43.9)
[2025-02-08 18:52] LABS: Immature Granulocytes Count 0.150 X10^3/uL (0.0-0.0)
[2025-02-08 18:54] LABS: Partial Thromboplast Time 26.3 Seconds (24.1-36.2); Prothrombin Time (Protime)PT. 13.1 SECONDS (11.7-14.9)
[2025-02-08 18:57] LABS: Anion Gap 18 (5-15); BUN 23 mg/dL (4-19); BUN/Creat Ratio 16.5 RATIO (10-20); Calcium,Total 9.5 mg/dL (7.6-11.0); Carbon Dioxide 20.0 mmol/L (21.0-32.0); Chloride 103 mmol/L (98-108); Estimated Creatinine Clearance 37.47 ml/min (50-250); Glucose 102 mg/dL (70-99); Potassium 3.4 mmol/L (3.3-5.1); Troponin T High Sensitivity 29 ng/L (<=22)
[2025-02-08 19:26] LABS: Magnesium 1.8 mg/dL (1.5-2.2)
--- OUTSIDE RECORDS SUMMARY | 2025-02-08 19:52 | XMS RPT_ITS | CCD ---
Author Organization [facility] Care Team Providers Care Dialysis Chief Equipment Technician Name Role Phone Quan Mackenzie MD Unavailable Mela Patel Unavailable Unavailable Anjelica Walden Unavailable Unavailable Radha Durbin PA-C Primary Care Provider [phone] Dr. Brian Mackenzie III Referring Provider Dr. Dejuan Brooks Attending Provider CHRISTINE Blount Primary Care Provider Dr. Dejuan Brooks Referring Provider Dr. Dejuan Brooks Other Provider Radha Durbin PA-C Primary Care Provider CHRISTINE Blount Primary Care Provider [phone] Dr. Dejuan Brooks Attending Provider Dr. Dejuan [...] Radha Durbin PA-C Primary Care Provider Haagen COMPOUNDING SCALER.PASTRYCOOK, Yuliana Unavailable Suppan COMPOUNDING SCALER.PASTRYCOOK, Brigitte A Unavailable [phone] Suppan COMPOUNDING SCALER.PASTRYCOOK, Brigitte A Primary Care Provi emilia Radha [...] Care Unavailable Suppan, Brigitte Referring Unavailable Claudia EDGE STAINER MACHINE, Kalyn Attending Unavailable Radha Blount Referring Unavailable Radha Blount Primary Care Unavailable Mary iHll Attending Unavail able Suppan, Brigitte Primary Care Unavailable Taylor EDGE STAINER MACHINE, Kalyn Referring Unavailable Taylor EDGE STAINER MACHINE, Kalyn Attending Unavailable Haagen COMPOUNDING SCALER.PASTRYCOOK, Yuliana Unavailable Suppan COMPOUNDING SCALER.PASTRYCOOK, Brigitte A Unavailable SUPPAN, BRIGITTE A Attending [...] Dr. Neo Tejeda DO Emergency Provider Suppan EXECUTIVE VICE PRESIDENT AND CHIEF FINANCIAL OFFICER, Brigitte Primary Care Provider Dr. Jerrell Faith MD Admit Provider Unavailable Dr. Jerrell Faith MD Other Provider Unavailable Martínez MANUEL, Dr. Lopez Attending Provider Leanne PEDERSON, Dr. Batista Other Provider Marcell MANUEL, Dr. Allan Attending Provider Unavaila ble Dr. Lester Perdomo DO Attending Provider Todd MANUEL, Dr. Zaidi Attending Provider [phone] Martínez MANUEL, Dr. Lopez Other Provider [phone] Suppan EXECUTIVE VICE PRESIDENT AND CHIEF FINANCIAL OFFICER, Brigitte Referring Provider Claudia EDGE STAINER MACHINE-CKalyn Attending Provider Allergies Allergy Classification Reported Allergen(s) Allergy Type Date of Onset Reaction(s) Facility (20 sources) lisinopril; Translations: [LISINOPRIL] Drug Allergy [address] [facility] Work Phone: Comment on above: cough (6 sources) sulfADIAZINE Drug Allergy 7 [facility] Work Phone: (20 sources) Sulfonamides (Antibiotic); Translations: [SULFA (SULFONAMIDE ANTIBIOTICS)] Drug Allergy 6 [facility] (4 sources) Sulfonamides (Antibiotic) Allergy to substance 2 Rash [facility] (1 source) Lisinopril Drug Allergy 5 [facility] Repository (1 source) Sulfonamides (Antibiotic) Drug allergy (disorder) 5 [facility] Rep[facility] Medications Current Medications Medication Drug Class(es) Dates Sig (Normalized) Sig (Original) amLODIPine 10 mg oral tablet (20 sources) Dihydropyridine Calcium Channel Becka Start: 09-15-2024 End: 09-15-2025 take 1 tablet by mouth once daily amLODIPine (NORVASC) 10 mg tablet Indications: Essential hypertension, benign Take 1 tablet by mouth once daily. 90 tablet 3 09/15/2024 09/15/2025 Active Start: 09-15-2024 take 2 tablets by mo [facility] once daily Amlodipine 5 mg tablet Active [...] tablets by mouth once daily. lactobacillus acidophilus [id number] unt oral capsule (20 sources) Start: 08-04-2023 [...] for pain and inflammation with food NAPROXEN [id number] Anjelica Walden niacin 500 mg extended release [...] 12:00am Start: 05-08-2017 take [facility] tablet [facility] NIACIN 500 MG TABS One tablet by mouth twice daily NIACIN [id number] Anjelicashaheed Walden Start: 03-17-2014 End: 09-09-2019 take [...] on above: Take 1 capsule by mo [facility] once daily. 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; Translations: [Current use of [...] 7 x 30 mm Protege stenting 03/18/14; MEDICARE COMPLIANCE AUDITOR 5 x 2 Powerflex and 6 x [...] Test Name Value Interpretation Reference Range Facility [facility] 10-31-2024 [facility] Telephone ([facility]) CLARK LYLES ([id number]) 1935 M Date Time Provider Department 10/31/24 BRIGITTE SEGAL [facility] OHIORadha During your visit today, we recorded the following information about you: Jaqueline Andre RN 10/31/2024 3:35 PM Signed Palliative Medicine Referral Assessment Referral Accepted: No, Reason for Denial: Chart reviewed, pal med order meant for [facility] in [place]. Jaqueline Andre RN October 31, 2024 Allergies As of Date: 10/31/2024 Noted Allergy Reaction LISINOPRIL 12/28/2009 3 - Cough SULFA (SULFONAMIDE ANTIBIOTICS) 03/09/2006 4 - Hives Date Reviewed: 09/19/2024 Reviewed by: Shirley Rivera MA - Fully Assessed Reason for Visit: [id number] [Other] Initial Consult [665] Prescriptions as of [...] chronic blood los*01/27/2020 Coronary artery disease involving solomon rabago*12/22/2020 S/P primary angioplasty with coronary stent [Z9*12/22/2020 Fall from standing [W19.XXXA] 09/20/2021 Encounter for support and coordination of trans*08/11/2023 Acute respiratory failure with hypoxia (HCC) [J*09/25/2023 Encounter Status:Closed by JAQUELINE ANDRE on 10/31/24 [facility] 10-27-2024 [facility] CLARK [facility] ([id number]) 1935 M Date Time Provider Department 10/27/24 [facility] During your visit today, we recorded the following information about you: Amita Kim LPN 10/27/2024 3:57 PM Skyler Madrigal with [facility] calls to report family is requesting order for palliative care. Fax order to [facility] [place]. Rohan also reports he saw pt today and is extending nurse to once a week x 2 weeks. Pt will then be discharged from Nursing. Rohan reports that Pulmonary gave new dx for pt of COPD and pulmonary htn. HIWOT Mariee Jacqueline A, APRN.PASTRYCOOK 10/27/2024 4:52 PM Signed Please ask patient [...] Signed Spoke to Paulino (not Rohan) with [facility]. Paulino reports that he did get [...] infection (HCC) [J44.0] Order(s):CONSULT TO PALLIATIVE CARE [[id number]] Order #: [id number]: 1 FUTURE Prescriptions as of 10/28/2024 - [...] Meds Comments as of 04/18/2021: Taking Saw [place]. Problem List As Of Date 10/27/2024 Noted [...] chronic blood los*01/27/2020 Coronary artery disease involving solomon rabago*12/22/2020 S/P primary angioplasty with coronary stent [Z9*12/22/2020 Fall from standing [W19.XXXA] 09/20/2021 Encounter for support an (more content not included)... Normal [facility] Pulmonary Visit Reporton Pulmonary Visit Report [facility] Pulmonary Medicine of [address] [place] [address] OFFICE VISIT Date of Service: 10/16/24 MR#: [id number] Acct: [id number] Name: CLARK LYLES Rep #: [id number] : 1935 Provider: MAILKA Taylor Age/Sex: 88/M Location: [facility] Status: Signed Assessment and Plan Assessment and [...] for hospital follow-up after recent hospitalization at [facility] from September 07 through September 15, 2024 [...] H Pu (more content not included)... Normal [facility] 10-15-2024 [facility] Telephone ([facility]) CLARK LYLES ([id number]) 1935 M Date Time Provider Department 10/15/24 [facility] During your visit today, we recorded the following information about you: Radha Green, RN 10/15/2024 3:04 PM Signed Paulino- nurse- [facility]- reports he did patient eval today and will extend [facility] visits to 1 x week [...] Meds Comments as of 04/18/2021: Taking Saw [place]. Problem List As Of Date 10/15/2024 Noted Resolved BENIGN HYPERTENSION [I10] 01/08/2006 Anxiety state [F41.1] 01/05/2009 GERD (gastroesophageal reflux disease) [K21.9] 01/10/2011 BPH (benign prostatic hyperplasia) [N40.0] 03/17/2013 PAD (peripheral artery disease) ([facility]) [I73.9] 02/28/2014 Hyperlipidemia LDL goal <100 [E78.5] 03/28/2016 Hyperbilirubinemia [E80.6] 05/10/2016 Parkinson's disease ([facility]) [G20.A1] 07/11/2017 Angina pectoris ([facility]) [I20.9] 08/25/2019 Restless legs syndrome [G25.81] 01/27/2020 Iron deficiency anemia due to chronic blood los*01/27/2020 Coronary artery disease involving solomon rabago*12/22/2020 S/P primary angioplasty with coronary stent [Z9*12/22/2020 Fall from standing [W19.XXXA] 09/20/2021 Encounter for support and coordination of trans*08/11/2023 Acute respiratory failure with hypoxia (HCC) [J*09/25/2023 Encounter Status:Closed by Radha GREEN on 10/30/24 [facility] 10-03-2024 CNPN Telephone (COUMWS) CLARK LYLES ([id number]) 1935 M Date Time Provider Department 10/03/24 BRIGITTE SEGAL During your visit today, we recorded the following information about you: Mary Balderas, RN 10/03/2024 2:54 PM Signed Jamie with [facility] is calling due to he saw [...] needs called back with information. Brigitte Segal APRN.PASTRYCOOK 10/03/2024 2:59 PM Signed Yes. Please increase O2 to 4l. Thank you for the recert. Shirley Rivera MA 10/03/2024 3:56 PM Signed Detailed message [facility] on secure line [facility] Shirley Rivera MA October 03, 2024 [...] Meds Comments as of 04/18/2021: Taking Saw [place]. Problem List As Of Date 10/03/2024 Noted Resolved BENIGN HYPERTENSION [I10] 01/08/2006 Anxiety state [F41.1] 01/05/2009 GERD (gastroesophageal reflux disease) [K21.9] 01/10/2011 BPH (benign prostatic hyperplasia) [N40.0] 03/17/2013 PAD (peripheral artery disease) ([facility]) [I73.9] 02/28/2014 Hyperlipidemia LDL goal <100 [E78.5] 03/28/2016 Hyperbilirubinemia [E80.6] 05/10/2016 Parkinson's disease (HCC) [G20.A1] 07/11/2017 Angina pectoris (HCC) [I20.9] 08/25/2019 Restless legs syndrome [G25.81] 01/27/2020 Iron deficiency anemia due to chronic blood los*01/27/2020 Coronary artery disease involving solomon rabago*12/22/2020 S/P primary angioplasty with coronary stent [Z9*12/22/2020 Fall from standing [W19.XXXA] 09/20/2021 Encounter for support and coordination of trans*08/11/2023 Acute respiratory failure with hypoxia (HCC) [J*09/25/2023 Encounter Status:Closed by SHIRLEY RIVERA on 10/03/24 [facility] CNOVon 09-19-2024 CNOV Office Visit ([facility]AMPWS ) CLARK LYLES ([id number]) 1935 M Date Time Provider Department 09/19/24 2:40 PM [facility] During your visit today, we recorded the following information about you: Temperature Pulse Blood pressure Weight 98.7 degrees 80/minute 128/62 72.6 kg Brigitte Segal APRN.PASTRYCOOK 09/19/2024 3:25 PM Signed This is a [...] lipoma performed by Dr. Robe Mackenzie at [facility] REVSC OPN/PRQ FEM/POP W/STNT/ANGIOP VSL 03-18-14 [...] 5. [place] (more content not included)... Normal [facility] Mikey 09-19-2024 JANETN Telephone (FAMPWS) CLARK LYLES Mega ([id number]) 1935 M Date Time Provider Department 09/19/24 BRIGITTE SEGAL During your visit today, we recorded the following information about you: Whit Sheridan RN 09/19/2024 2:23 PM Signed Rohan calling with [facility] Physical Therapy with plan of care for patient. Pt will be seen 1x per week for 4 weeks for functional mobility training. No call back needed if provider agreeable. ZACKARY Vines Jacqueline A, COMPOUNDING SCALER.[facility] 09/19/2024 3:33 PM Signed Sounds good. [...] Meds Comments as of 04/18/2021: Taking Saw [place]. Problem List As Of Date 09/19/2024 Noted [...] chronic blood los*01/27/2020 Coronary artery disease involving solomon rabago*12/22/2020 S/P primary angioplasty with coronary stent [Z9*12/22/2020 Fall from standing [W19.XXXA] 09/20/2021 Encounter for support and coordination of trans*08/11/2023 Acute respiratory failure with hypoxia (HCC) [J*09/25/2023 Encounter Status:Closed by BRIGITTE SEGAL on 09/19/24 [facility] Mikey 09-17-2024 CNPN Telephone (FAMPWS) CLARK LYLES ([id number]) 1935 M Date Time Provider Department 09/17/24 BRIGITTE SEGAL During your visit today, we recorded the following information about you: Tracy Cedillo RN 09/17/2024 12:57 PM Signed Hellen calling from [facility] to report plan of care for patient and usp will visit patient 1 time a week for 1 week and 2 times a week for 2 weeks. [facility] will work with patient on wound care (patient has skin tear to right elbow) and management of O2 levels. Hellen had no orders for wound care. Hellen cleaned wound and put on Vaseline gauze and band aid. Hellen also notes that patient is on Oxygen and thought that he was only going to be on oxygen for a week. Patient does not see tester semiconductor packages for a month. Hellen did not know if provider wanted to address Oxygen use. Patient is scheduled to see PCP 09/19/2024. No call back needed unless there are questions. ZACKARY Tristan Jacqueline A, SHUKRI.PASTRYCOOK 09/18/2024 8:09 AM Signed Patient will need to stay on oxygen until he follows up with pulmonary. I have not seen him since February 2024 therefore I am not really able to shed any light on his oxygen use. Not common to use oxygen for only a week. Tracy Cedillo RN 09/18/2024 9:53 AM Signed Haley from [facility] calls and reports that granddaughter had [...] provider tomorrow 09/19/2024. Please Contact Haley back [phone]. ZACKARY Tristan Jacqueline A, COMPOUNDING SCALER.PASTRYCOOK 09/18/2024 10:41 AM Signed Absolutely keep at [...] Date Reviewed: 03/27/2024 Reviewed by: Brigitte Segal APRN.PASTRYCOOK - Fully Assessed Reason for Visit: [facility]fp Plan of Care [Other] Prescriptions as of [...] Meds Comments as of 04/18/2021: Taking Saw [place]. Problem List As Of Date 09/17/2024 Noted [...] chronic blood los*01/27/2020 Coronary artery disease involving solomon rabago*12/22/2020 S/P primary angioplasty with coronary stent [Z9*12/22/2020 Fall from standing [W19.XXXA] 09/20/2021 Encounter for support and coordination of trans*08/11/2023 Acute respiratory failure with hypoxia (HCC) [J*09/25/2023 Encounter Status:Closed by TRACY CEDILLO on 09/22/24 [facility]-20[facility] CLARK [facility] ([id number]) 1935 M Date Time Provider Department 09/15/24 [facility] During your visit today, we recorded the following information about you: Tracy Cedillo RN 09/15/2024 3:32 PM Signed Rochelle from [facility] calls and states that patient is being discharged from [facility] PCU on 09/05/2024 with the diagnosis of hypoxia and acute respiratory failure. Rochelle asking if provider willing to follow patient with orders for usp, physical therapy, occupational therapy and social work. If agreeable please give Rochelle a call back . Thank you, ZACKARY Tristan Jacqueline A, APRN.[facility] 09/15/2024 4:41 PM Signed Yes. Of course Brigitte Segal APRN.PASTRYCOOK 09/15/2024 5:31 PM Signed Patient is an [...] Signed Detailed message left for Rochelle at [facility] with verbal agreement of plan. Shirley Rivera MA September 16, 2024 9:12 AM Allergies As of Date: 09/15/2024 Noted Allergy Reaction LISINOPRIL 12/28/2009 3 - Cough SULFA (SULFONAMIDE ANTIBIOTICS) 03/09/2006 4 - Hives Date Reviewed: 03/27/2024 Reviewed by: Brigitte Segal APRN.PASTRYCOOK - Fully Assessed Reason for Visit: Home [...] Meds Comments as of 04/18/2021: Taking Saw [place]. Problem List As Of Date 09/15/2024 Noted Resolved BENIGN HYPERTENSION [I10] 01/08/2006 Anxiety state [F41.1] 01/05/2009 GERD (gastroesophageal reflux disease) [K21.9] 01/10/2011 BPH (benign prostatic hyperplasia) [N40.0] 03/17/2013 PAD (peripheral artery disease) ([facility]) [I73.9] 02/28/2014 Hyperlipidemia LDL goal <100 [E78.5] 03/28/2016 Hyperbilirubinemia [E80.6] 05/10/2016 Parkinson's disease (HCC) [G20.A1] 07/11/2017 Angina pectoris (HCC) [I20.9] 08/25/2019 Restless legs syndrome [G25.81] 01/27/2020 Iron deficiency anemia due to chronic blood los*01/27/2020 Coronary artery disease involving solomon rabago*12/22/2020 S/P primary angioplasty with coronary stent [Z9* (more content not included)... Normal [facility] Discharge Instructionon 08-30 Discharge Instruction [facility] Medical Records Department [address] [place] [address] Instructions for Home/Discharge Instructions 09/15/24905 MR#: [id number] Acct: [id number] Name: CLARK LYLES Rep #: [id number] : 1935 88 From: John Soliz MD PCP: Brigitte Segal, EXECUTIVE VICE PRESIDENT AND CHIEF FINANCIAL OFFICER Status:ADM IN Discharge Instructions Diet Discharge Diet: [...] Care 09/15/24 1343 John Soliz MD CC: EXECUTIVE VICE PRESIDENT AND CHIEF FINANCIAL OFFICER Brigitte Segal; Dr. Jerrell Faith MD; Dr. Lester Perdomo DO Signed Normal [facility] Serum or plasma trough vanco mycin levelOrdered By: Jerrell Monterroso on 09-15-2024 Vancomycin trough [Mass/Vol] 16.5 ug/mL High 5.0-15.0 [facility] Comment on above: VANCOMYCIN STANDARED DRUG THERAPY TROUGH LEVEL: 5.0 - 15.0 mg/L VANCOMYCIN HIGH INTENSITY THERAPY TROUGH LEVEL: 15.0 - 20.0 mg/L High Intensity therapy recommended for serious lifethreatening infections include:- Qslcqklsfy-Tdcdoyylstco-Yaxvggztw (Ventilator/Healtcare Associated)-Sepsis PLEASE CONTACT PHARMACY SERVICES (#[id number]) FOR INTERPRETATIONOF RESULTS. Vancomycin, Trough Levelon 0 09-15-2024 VANCO, TROUGH 16.5 ug/mL High 5.0-15.0 [facility] Comment on above: Order Comment: Comme nts: Trough to be drawn 30 mins prior to scheduled [id number] Result Comment: VANC OMYCIN STANDARED DRUG THERAPY TROUGH LEVEL: 5.0 - 15.0 mg/L VANCOMYCIN HIGH INTENSITY THERAPY TROUGH LEVEL: 15.0 - 20.0 mg/L High Intensity therapy recommended for serious life threatening infections include: - Meningitis -Endocarditis -Pneumonia (Ventilator/Healtcare Associated) -Sepsis PLEASE CONTACT PHARMACY SERVICES (#[id number]) FOR INTERPRETATION OF RESULTS. Performed By: #### L 100.0100, L500.2500 #### [facility] [address] [place], [address] Absolute lymphocyte countOrd ered By: Lester Perdomo on 09-14-2024 Lymphocytes Auto (Unsp spec) [#/Vol] 1.09 10*3/uL 0.83-4.51 [facility] Absolute neutrophil countOrd ered By: Lester Perdomo on 09-14-2024 Neutrophils (Bld) [#/Vol] 12.0 10*3/uL High 2.0-7.7 [facility] Automated lymphocyte count a s percentage of total leukocytesOrdered By: Lester Perdomo on 09-14-2024 Lymphocytes/100 WBC Auto (Unsp spec) 7.3 % Low 19-41 [facility] Basic Metabolic Profile (BMP )on 09-14-2024 BUN/CRE 44.2 RATIO High 10-20 [facility] Comment on above: Performed By: #### L 100.0100, L500.2500 #### [facility] [address] [place], [address] CA,Total 8.6 mg/dL Normal 8.5-10.1 [facility] Comment on above: Performed By: #### L 100.0100, L500.2500 #### [facility] [address] [place], [address] Chloride [Moles/Vol] 106 mmol/L Normal 98-107 [facility] Comment on above: Performed By: #### L 100.0100, L500.2500 #### [facility] [address] [place], [address] CO2 [Moles/Vol] 27.0 mmol/L Normal 21.0-32.0 [facility] Comment on above: Performed By: #### L 100.0100, L500.2500 #### [facility] [address] [place], [address] Creatinine [Mass/Vol] 0.84 mg/dL Normal 0.70-1.30 [facility] Comment on above: Result Comment: The validity of the calculated GFR GFRAA in patients over 70 years has not been determined. Clinical correlation is essential. Performed By: #### L 100.0100, L500.2500 #### [facility] [address] [place], [address] ECRCL 63.04 ml/min Normal [facility] Comment on above: Performed By: #### L 100.0100, L500.2500 #### [facility] [address] [place], [address] EST GFR - AA 112 mL/min Normal >60 [facility] Comment on above: Result Comment: Afri can [place] GFR Calc Performed By: #### L 100.0100, L500.2500 #### [facility] [address] [place], [address] GAP 6 Normal 5-15 [facility] Comment on above: Performed By: #### L 100.0100, L500.2500 #### [facility] [address] [place], [address] GFR/1.73 sq M.predicted among non-blacks MDRD (S/P/Bld) [Vol rate/Area] 92 mL/min/{1.73_m2} Normal >60 [facility] Comment on above: Result Comment: Non- GFR Calc Performed By: #### L 100.0100, L500.2500 #### [facility] [address] [place], [address] Glucose [Mass/Vol] 156 mg/dL High 74-106 [facility] Comment on above: Result Comment: Fast ing Glucose result greater than or equal to 126 mg/dL suggests DIABETES MELLITUS per A.D.A. criteria. Performed By: #### L 100.0100, L500.2500 #### [facility] [address] [place], [address] Potassium [Moles/Vol] 3.4 mmol/L Low 3.5-5.1 [facility] Comment on above: Performed By: #### L 100.0100, L500.2500 #### [facility] [address] [place], [address] Sodium [Moles/Vol] 139 mmol/L Normal 136-145 [facility] Comment on above: Performed By: #### L 100.0100, L500.2500 #### [facility] [address] [place], [address] Urea nitrogen [Mass/Vol] 37 mg/dL High 7-18 [facility] Comment on above: Performed By: #### L 100.0100, L500.2500 #### [facility] [address] [place], [address] Basophil percentageOrdered B y: Lester Perdomo on 09-14-2024 Basophils/100 WBC (Bld) 0.1 % 0-1 [facility] Blood urea nitrogen (BUN)/cr eatinine ratioOrdered By: Lester Perdomo on 09-14-2024 Urea nitrogen/Creatinine [Mass ratio] 44.2 mg/mg High 10-20 [facility] CBC W/Diff, Automatedon 08-30 REACTIVE LYMPH 1+ Normal [facility] Comment on above: Performed By: #### L 100.0100, L500.2500 #### [facility] [address] [place], [address] Carbon dioxide measurementOr dered By: Lester Perdomo on 09-14-2024 CO2 [Moles/Vol] 27.0 mmol/L 21.0-32.0 [facility] Chloride measurementOrdered By: Lester Perdomo on 09-14-2024 Chloride [Moles/Vol] 106 mmol/L 98-107 [facility] Eosinophil percentageOrdered By: Lester Perdomo on 09-14-2024 Eosinophils/100 WBC (Bld) 0.3 % 0-5 [facility] Erythrocyte distribution wid th ratioOrdered By: Lester Perdomo on 09-14-2024 Erythrocyte distribution width (RBC) [Ratio] 16.1 % High 11.6-14.6 [facility] Erythrocyte distribution wid th standard deviationOrdered By: Lester Perdomo on 09-14-2024 Erythrocyte distribution width (RBC) [Ratio] 56.8 fl High 35.1-43.9 [facility] Glomerular filtration rate ( GFR) estimationOrdered By: Lester Perdomo on 09-14-2024 GFR/1.73 sq M.predicted among non-blacks MDRD (S/P/Bld) [Vol rate/Area] 92 mL/min/{1.73_m2} >60 [facility] Comment on above: Non- GFR Calc Glucose measurementOrdered B y: Lester Perdomo on 09-14-2024 Glucose [Mass/Vol] 156 mg/dL High 74-106 [facility] Comment on above: Fasting Glucose resu lt greater than or equal to 126 mg/dL suggests DIABETES MELLITUS per A.D.A. criteria. Hematocrit Auto (Bld) [Volum e fraction]Ordered By: Lester Perdomo on 09-14-2024 Hematocrit (Bld) [Volume fraction] 43.5 % 40-54 [facility] Hemoglobin measurementOrdere d By: Lester Perdomo on 09-14-2024 Hemoglobin (Bld) [Mass/Vol] 14.3 g/dL 13.0-16.5 [facility] Immature granulocytes/100 WB C Auto (Bld)Ordered By: Lester Perdomo on 09-14-2024 Immature granulocytes/100 WBC (Bld) 4.800 % High 0.0-0.9 [facility] Comment on above: IG% - Immature Granu locytes (promyelocytes, myelocytes and metamyelocytes) > 1% indicates that a LEFT SHIFT is Present. MCV (mean corpuscular volume ) determinationOrdered By: Lester Perdomo on 09-14-2024 MCV (RBC) [Entitic vol] 96.2 fL High 80-94 [facility] Mean corpuscular hemoglobin (MCH) determinationOrdered By: Lester Perdomo on 09-14-2024 MCH (RBC) [Entitic mass] 31.6 pg 27.0-32.0 [facility] Mean corpuscular hemoglobin concentration (MCHC) determinationOrdered By: Lester Perdomo on 09-14-2024 MCHC (RBC) [Mass/Vol] 32.9 g/dL 32-36 [facility] Mean platelet volume determi nationOrdered By: Lester Perdomo on 09-14-2024 Platelet mean volume (Bld) [Entitic vol] 11.7 fL 6.2-12.0 [facility] Monocyte percentageOrdered B y: Lester Perdomo on 09-14-2024 Monocytes/100 WBC (Bld) 7.0 % 0-10 [facility] Neutrophil percentageOrdered By: Lester Perdomo on 09-14-2024 Neutrophils/100 WBC (Bld) 80.5 % High 47-70 [facility] Nucleated red blood cell per centageOrdered By: Lester Perdomo on 09-14-2024 Nucleated RBC/100 WBC (Bld) [Ratio] 0 % 0-5 [facility] Platelet countOrdered By: Geovany Perdomo on 09-14-2024 Platelets (Bld) [#/Vol] 152 10*3/uL 150-450 [facility] Potassium measurementOrdered By: Lester Perdomo on 09-14-2024 Potassium [Moles/Vol] 3.4 mmol/L Low 3.5-5.1 [facility] RBC Auto (Bld) [#/Vol]Ordere d By: Lester Perdomo on 09-14-2024 RBC (Bld) [#/Vol] 4.52 10*6/uL Low 4.6-6.2 [facility] Serum anion gap measurementO rdered By: Lester Perdomo on 09-14-2024 Anion gap [Moles/Vol] 6 mmol/L 5-15 [facility] Serum or plasma calcium nichole urement (mass/volume)Ordered By: Lester Perdomo on 09-14-2024 Calcium [Mass/Vol] 8.6 mg/dL 8.5-10.1 [facility] Serum or plasma creatinine m easurement (mass/volume)Ordered By: Lester Perdomo on 09-14-2024 Creatinine [Mass/Vol] 0.84 mg/dL 0.70-1.30 [facility] Comment on above: The validity of the calculated GFR & GFRAA in patients over 70 years has not been determined. Clinical correlation is essential. Serum or plasma urea nitroge n measurement (mass/volume)Ordered By: Lester Perdomo on 09-14-2024 Urea nitrogen [Mass/Vol] 37 mg/dL High 7-18 [facility] Sodium levelOrdered By: Lester Perdomo on 09-14-2024 Sodium [Moles/Vol] 139 mmol/L 136-145 [facility] White blood cell (WBC) count Ordered By: Lester Perdomo on 09-14-2024 WBC (Bld) [#/Vol] 14.9 10*3/uL High 4.4-11.0 [facility] Basic Metabolic Profile (BMP )on 09-13-2024 BUN/CRE 30.9 RATIO High 10-20 [facility] Comment on above: Performed By: #### L 100.0100, L500.2500 #### [facility] [address] [place], [address] CA,Total 8.6 mg/dL Normal 8.5-10.1 [facility] Comment on above: Performed By: #### L 100.0100, L500.2500 #### [facility] [address] [place], [address] Chloride [Moles/Vol] 103 mmol/L Normal 98-107 [facility] Comment on above: Performed By: #### L 100.0100, L500.2500 #### [facility] [address] [place], [address] CO2 [Moles/Vol] 33.0 mmol/L High 21.0-32.0 [facility] Comment on above: Performed By: #### L 100.0100, L500.2500 #### [facility] [address] [place], [address] Creatinine [Mass/Vol] 1.10 mg/dL Normal 0.70-1.30 [facility] Comment on above: Result Comment: The validity of the calculated GFR GFRAA in patients over 70 years has not been determined. Clinical correlation is essential. Performed By: #### L 100.0100, L500.2500 #### [facility] [address] [place], [address] ECRCL 49.57 ml/min Normal [facility] Comment on above: Performed By: #### L 100.0100, L500.2500 #### [facility] [address] [place], [address] EST GFR - AA 82 mL/min Normal >60 [facility] Comment on above: Result Comment: Afri can [place] GFR Calc Performed By: #### L 100.0100, L500.2500 #### [facility] [address] [place], [address] GAP 3 Low 5-15 [facility] Comment on above: Performed By: #### L 100.0100, L500.2500 #### [facility] [address] [place], [address] GFR/1.73 sq M.predicted among non-blacks MDRD (S/P/Bld) [Vol rate/Area] 67 mL/min/{1.73_m2} Normal >60 [facility] Comment on above: Result Comment: Non- GFR Calc Performed By: #### L 100.0100, L500.2500 #### [facility] [address] [place], [address] Glucose [Mass/Vol] 168 mg/dL High 74-106 [facility] Comment on above: Result Comment: Fast ing Glucose result greater than or equal to 126 mg/dL suggests DIABETES MELLITUS per A.D.A. criteria. Performed By: #### L 100.0100, L500.2500 #### [facility] [address] [place], [address] Potassium [Moles/Vol] 3.3 mmol/L Low 3.5-5.1 [facility] Comment on above: Performed By: #### L 100.0100, L500.2500 #### [facility] [address] [place], [address] Sodium [Moles/Vol] 139 mmol/L Normal 136-145 [facility] Comment on above: Performed By: #### L 100.0100, L500.2500 #### [facility] [address] [place], [address] Urea nitrogen [Mass/Vol] 34 mg/dL High 7-18 [facility] Comment on above: Performed By: #### L 100.0100, L500.2500 #### [facility] [address] [place], [address] CBC W/Diff, Automatedon 02- Absolute Lymph 0.43 X10 3/uL Low 0.83-4.51 [facility] Comment on above: Performed By: #### L 100.0100, L500.2500 #### [facility] [address] [place], [address] Absolute Neut 12.2 X10 3/uL High 2.0-7.7 [facility] Comment on above: Performed By: #### L 100.0100, L500.2500 #### [facility] [address] [place], [address] Basophils/100 WBC (Bld) 0.7 % Normal 0-1 [facility] Comment on above: Performed By: #### L 100.0100, L500.2500 #### [facility] [address] [place], [address] Eosinophils/100 WBC (Bld) 0.0 % Normal 0-5 [facility] Comment on above: Performed By: #### L 100.0100, L500.2500 #### [facility] [address] [place], [address] Erythrocyte distribution width (RBC) [Ratio] 15.8 % High 11.6-14.6 [facility] Comment on above: Performed By: #### L 100.0100, L500.2500 #### [facility] [address] [place], [address] Hematocrit (Bld) [Volume fraction] 45.7 % Normal 40-54 [facility] Comment on above: Performed By: #### L 100.0100, L500.2500 #### [facility] [address] [place], [address] Hemoglobin (Bld) [Mass/Vol] 15.5 g/dL Normal 13.0-16.5 [facility] Comment on above: Performed By: #### L 100.0100, L500.2500 #### [facility] [address] [place], [address] IG% 2.600 High 0.0-0.9 [facility] Comment on above: Result Comment: IG% - Immature Granulocytes (promyelocytes, myelocytes and metamyelocytes) > 1% indicates that a LEFT SHIFT is Present. Performed By: #### L 100.0100, L500.2500 #### [facility] [address] [place], [address] Lymphocytes/100 WBC (Bld) 3.2 % Low 19-41 [facility] Comment on above: Performed By: #### L 100.0100, L500.2500 #### [facility] [address] [place], [address] MCH (RBC) [Entitic mass] 32.0 pg Normal 27.0-32.0 [facility] Comment on above: Performed By: #### L 100.0100, L500.2500 #### [facility] [address] [place], [address] MCHC (RBC) [Mass/Vol] 33.9 g/dL Normal 32-36 [facility] Comment on above: Performed By: #### L 100.0100, L500.2500 #### [facility] [address] [place], [address] MCV (RBC) [Entitic vol] 94.4 fL High 80-94 [facility] Comment on above: Performed By: #### L 100.0100, L500.2500 #### [facility] [address] [place], [address] Monocytes/100 WBC (Bld) 3.8 % Normal 0-10 [facility] Comment on above: Performed By: #### L 100.0100, L500.2500 #### [facility] [address] [place], [address] Neutrophils/100 WBC (Bld) 89.7 % High 47-70 [facility] Comment on above: Performed By: #### L 100.0100, L500.2500 #### [facility] [address] [place], [address] Nucleated RBC (Bld) [#/Vol] 0 10*3/uL Normal 0-5 [facility] Comment on above: Performed By: #### L 100.0100, L500.2500 #### [facility] [address] [place], [address] Platelet mean volume (Bld) [Entitic vol] 11.4 fL Normal 6.2-12.0 [facility] Comment on above: Performed By: #### L 100.0100, L500.2500 #### [facility] [address] [place], [address] Platelets (Bld) [#/Vol] 162 10*3/uL Normal 150-450 [facility] Comment on above: Performed By: #### L 100.0100, L500.2500 #### [facility] [address] [place], [address] RBC (Bld) [#/Vol] 4.84 10*6/uL Normal 4.6-6.2 [facility] Comment on above: Performed By: #### L 100.0100, L500.2500 #### [facility] [address] [place], [address] RDW SD 54.8 fl High 35.1-43.9 [facility] Comment on above: Performed By: #### L 100.0100, L500.2500 #### [facility] [address] [place], [address] WBC (Bld) [#/Vol] 13.5 10*3/uL High 4.4-11.0 [facility] Comment on above: Performed By: #### L 100.0100, L500.2500 #### [facility] [address] [place], [address] Vancomycin, Trough Levelon 0 - VANCO, TROUGH 17.0 ug/mL High 5.0-15.0 [facility] Comment on above: Order Comment: Comme nts: DRAW 30 MIN PRIOR TO DOSE 0330 Result Comment: VANC OMYCIN STANDARED DRUG THERAPY TROUGH LEVEL: 5.0 - 15.0 mg/L VANCOMYCIN HIGH INTENSITY THERAPY TROUGH LEVEL: 15.0 - 20.0 mg/L High Intensity therapy recommended for serious life threatening infections include: - Meningitis -Endocarditis -Pneumonia (Ventilator/Healtcare Associated) -Sepsis PLEASE CONTACT PHARMACY SERVICES (#[phone]) FOR INTERPRETATION OF RESULTS. Performed By: #### L 501.8820 #### [facility] [address] [place], [address] Basic Metabolic Profile (BMP )on 09-12-2024 BUN/CRE 33.2 RATIO High 10-20 [facility] Comment on above: Performed By: #### L 100.0100, L500.2500 #### [facility] [address] [place], [address] CA,Total 8.5 mg/dL Normal 8.5-10.1 [facility] Comment on above: Performed By: #### L 100.0100, L500.2500 #### [facility] [address] [place], [address] Chloride [Moles/Vol] 105 mmol/L Normal 98-107 [facility] Comment on above: Performed By: #### L 100.0100, L500.2500 #### [facility] [address] [place], [address] CO2 [Moles/Vol] 28.0 mmol/L Normal 21.0-32.0 [facility] Comment on above: Performed By: #### L 100.0100, L500.2500 #### [facility] [address] [place], [address] Creatinine [Mass/Vol] 0.96 mg/dL Normal 0.70-1.30 [facility] Comment on above: Result Comment: The validity of the calculated GFR GFRAA in patients over 70 years has not been determined. Clinical correlation is essential. Performed By: #### L 100.0100, L500.2500 #### [facility] [address] [place], [address] ECRCL 56.80 ml/min Normal [facility] Comment on above: Performed By: #### L 100.0100, L500.2500 #### [facility] [address] [place], [address] EST GFR - AA 95 mL/min Normal >60 [facility] Comment on above: Result Comment: Afri can [place] GFR Calc Performed By: #### L 100.0100, L500.2500 #### [facility] [address] [place], [address] GAP 7 Normal 5-15 [facility] Comment on above: Performed By: #### L 100.0100, L500.2500 #### [facility] [address] [place], [address] GFR/1.73 sq M.predicted among non-blacks MDRD (S/P/Bld) [Vol rate/Area] 78 mL/min/{1.73_m2} Normal >60 [facility] Comment on above: Result Comment: Non- GFR Calc Performed By: #### L 100.0100, L500.2500 #### [facility] [address] [place], [address] Glucose [Mass/Vol] 156 mg/dL High 74-106 [facility] Comment on above: Result Comment: Fast ing Glucose result greater than or equal to 126 mg/dL suggests DIABETES MELLITUS per A.D.A. criteria. Performed By: #### L 100.0100, L500.2500 #### [facility] [address] [place], [address] Potassium [Moles/Vol] 3.4 mmol/L Low 3.5-5.1 [facility] Comment on above: Performed By: #### L 100.0100, L500.2500 #### [facility] [address] [place], [address] Sodium [Moles/Vol] 140 mmol/L Normal 136-145 [facility] Comment on above: Performed By: #### L 100.0100, L500.2500 #### [facility] [address] [place], [address] Urea nitrogen [Mass/Vol] 32 mg/dL High 7-18 [facility] Comment on above: Performed By: #### L 100.0100, L500.2500 #### [facility] [address] [place], [address] CBC W/Diff, Automatedon 02-08 02-2024 Absolute Lymph 0.46 X10 3/uL Low 0.83-4.51 [facility] Comment on above: Performed By: #### L 100.0100, L500.2500 #### [facility] [address] [place], [address] Absolute Neut 11.3 X10 3/uL High 2.0-7.7 [facility] Comment on above: Performed By: #### L 100.0100, L500.2500 #### [facility] [address] [place], [address] Basophils/100 WBC (Bld) 0.2 % Normal 0-1 [facility] Comment on above: Performed By: #### L 100.0100, L500.2500 #### [facility] [address] [place], [address] Eosinophils/100 WBC (Bld) 0.0 % Normal 0-5 [facility] Comment on above: Performed By: #### L 100.0100, L500.2500 #### [facility] [address] [place], [address] Erythrocyte distribution width (RBC) [Ratio] 15.9 % High 11.6-14.6 [facility] Comment on above: Performed By: #### L 100.0100, L500.2500 #### [facility] [address] [place], [address] Hematocrit (Bld) [Volume fraction] 44.7 % Normal 40-54 [facility] Comment on above: Performed By: #### L 100.0100, L500.2500 #### [facility] [address] [place], [address] Hemoglobin (Bld) [Mass/Vol] 14.9 g/dL Normal 13.0-16.5 [facility] Comment on above: Performed By: #### L 100.0100, L500.2500 #### [facility] [address] [place], [address] IG% 1.700 High 0.0-0.9 [facility] Comment on above: Result Comment: IG% - Immature Granulocytes (promyelocytes, myelocytes and metamyelocytes) > 1% indicates that a LEFT SHIFT is Present. Performed By: #### L 100.0100, L500.2500 #### [facility] [address] [place], [address] Lymphocytes/100 WBC (Bld) 3.6 % Low 19-41 [facility] Comment on above: Performed By: #### L 100.0100, L500.2500 #### [facility] [address] [place], [address] MCH (RBC) [Entitic mass] 31.6 pg Normal 27.0-32.0 [facility] Comment on above: Performed By: #### L 100.0100, L500.2500 #### [facility] [address] [place], [address] MCHC (RBC) [Mass/Vol] 33.3 g/dL Normal 32-36 [facility] Comment on above: Performed By: #### L 100.0100, L500.2500 #### [facility] [address] [place], [address] MCV (RBC) [Entitic vol] 94.7 fL High 80-94 [facility] Comment on above: Performed By: #### L 100.0100, L500.2500 #### [facility] [address] [place], [address] Monocytes/100 WBC (Bld) 4.7 % Normal 0-10 [facility] Comment on above: Performed By: #### L 100.0100, L500.2500 #### [facility] [address] [place], [address] Neutrophils/100 WBC (Bld) 89.8 % High 47-70 [facility] Comment on above: Performed By: #### L 100.0100, L500.2500 #### [facility] [address] [place], [address] Nucleated RBC (Bld) [#/Vol] 0 10*3/uL Normal 0-5 [facility] Comment on above: Performed By: #### L 100.0100, L500.2500 #### [facility] [address] [place], [address] Platelet mean volume (Bld) [Entitic vol] 11.5 fL Normal 6.2-12.0 [facility] Comment on above: Performed By: #### L 100.0100, L500.2500 #### [facility] [address] [place], [address] Platelets (Bld) [#/Vol] 165 10*3/uL Normal 150-450 [facility] Comment on above: Performed By: #### L 100.0100, L500.2500 #### [facility] [address] [place], [address] RBC (Bld) [#/Vol] 4.72 10*6/uL Normal 4.6-6.2 [facility] Comment on above: Performed By: #### L 100.0100, L500.2500 #### [facility] [address] [place], [address] RDW SD 55.7 fl High 35.1-43.9 [facility] Comment on above: Performed By: #### L 100.0100, L500.2500 #### [facility] [address] [place], [address] WBC (Bld) [#/Vol] 12.6 10*3/uL High 4.4-11.0 [facility] Comment on above: Performed By: #### L 100.0100, L500.2500 #### [facility] [address] [place], [address] Respiratory Cultureon 2024 RESPC Mixed normal respira tory argenis. No Haemophilus, Streptococcus pneumoniae, beta-hemolytic Streptococcus or Staphylococcus aureus isolated. Normal [facility] Comment on above: Performed By: #### M 100.2400, M100.2000 ####[facility] [address] [place], [address] CBC W/Diff, Automatedon 08-30 Absolute Lymph 0.43 X10 3/uL Low 0.83-4.51 [facility] Comment on above: Performed By: #### L 100.0100 #### [facility] [address] [place], [address] Absolute Neut 11.6 X10 3/uL High 2.0-7.7 [facility] Comment on above: Performed By: #### L 100.0100 #### [facility] [address] [place], [address] Basophils/100 WBC (Bld) 0.1 % Normal 0-1 [facility] Comment on above: Performed By: #### L 100.0100 #### [facility] [address] [place], [address] Eosinophils/100 WBC (Bld) 0.0 % Normal 0-5 [facility] Comment on above: Performed By: #### L 100.0100 #### [facility] [address] [place], [address] Erythrocyte distribution width (RBC) [Ratio] 16.1 % High 11.6-14.6 [facility] Comment on above: Performed By: #### L 100.0100 #### [facility] [address] [place], [address] Hematocrit (Bld) [Volume fraction] 44.9 % Normal 40-54 [facility] Comment on above: Performed By: #### L 100.0100 #### [facility] [address] [place], [address] Hemoglobin (Bld) [Mass/Vol] 14.8 g/dL Normal 13.0-16.5 [facility] Comment on above: Performed By: #### L 100.0100 #### [facility] [address] [place], [address] IG% 1.600 High 0.0-0.9 [facility] Comment on above: Result Comment: IG% - Immature Granulocytes (promyelocytes, myelocytes and metamyelocytes) > 1% indicates that a LEFT SHIFT is Present. Performed By: #### L 100.0100 #### [facility] [address] [place], [address] Lymphocytes/100 WBC (Bld) 3.4 % Low 19-41 [facility] Comment on above: Performed By: #### L 100.0100 #### [facility] [address] [place], [address] MCH (RBC) [Entitic mass] 31.5 pg Normal 27.0-32.0 [facility] Comment on above: Performed By: #### L 100.0100 #### [facility] [address] [place], [address] MCHC (RBC) [Mass/Vol] 33.0 g/dL Normal 32-36 [facility] Comment on above: Performed By: #### L 100.0100 #### [facility] [address] [place], [address] MCV (RBC) [Entitic vol] 95.5 fL High 80-94 [facility] Comment on above: Performed By: #### L 100.0100 #### [facility] [address] [place], [address] Monocytes/100 WBC (Bld) 4.1 % Normal 0-10 [facility] Comment on above: Performed By: #### L 100.0100 #### [facility] [address] [place], [address] Neutrophils/100 WBC (Bld) 90.8 % High 47-70 [facility] Comment on above: Performed By: #### L 100.0100 #### [facility] [address] [place], [address] Nucleated RBC (Bld) [#/Vol] 0 10*3/uL Normal 0-5 [facility] Comment on above: Performed By: #### L 100.0100 #### [facility] [address] [place], [address] Platelet mean volume (Bld) [Entitic vol] 11.3 fL Normal 6.2-12.0 [facility] Comment on above: Performed By: #### L 100.0100 #### [facility] [address] [place], [address] Platelets (Bld) [#/Vol] 156 10*3/uL Normal 150-450 [facility] Comment on above: Performed By: #### L 100.0100 #### [facility] [address] [place], [address] RBC (Bld) [#/Vol] 4.70 10*6/uL Normal 4.6-6.2 [facility] Comment on above: Performed By: #### L 100.0100 #### [facility] [address] [place], [address] RDW SD 57.0 fl High 35.1-43.9 [facility] Comment on above: Performed By: #### L 100.0100 #### [facility] [address] [place], [address] WBC (Bld) [#/Vol] 12.8 10*3/uL High 4.4-11.0 [facility] Comment on above: Performed By: #### L 100.0100 #### [facility] [address] [place], [address] Basic Metabolic Profile (BMP )on 09-10-2024 BUN/CRE 37.5 RATIO High 10-20 [facility] Comment on above: Performed By: #### L 100.0100, L500.2500 #### [facility] [address] [place], [address] CA,Total 8.9 mg/dL Normal 8.5-10.1 [facility] Comment on above: Performed By: #### L 100.0100, L500.2500 #### [facility] [address] [place], [address] Chloride [Moles/Vol] 111 mmol/L High 98-107 [facility] Comment on above: Performed By: #### L 100.0100, L500.2500 #### [facility] [address] [place], [address] CO2 [Moles/Vol] 27.0 mmol/L Normal 21.0-32.0 [facility] Comment on above: Performed By: #### L 100.0100, L500.2500 #### [facility] [address] [place], [address] Creatinine [Mass/Vol] 0.77 mg/dL Normal 0.70-1.30 [facility] Comment on above: Result Comment: The validity of the calculated GFR GFRAA in patients over 70 years has not been determined. Clinical correlation is essential. Performed By: #### L 100.0100, L500.2500 #### [facility] [address] [place], [address] ECRCL 67.03 ml/min Normal [facility] Comment on above: Performed By: #### L 100.0100, L500.2500 #### [facility] [address] [place], [address] EST GFR - AA 122 mL/min Normal >60 [facility] Comment on above: Result Comment: Afri can [place]uran GFR Calc Performed By: #### L 100.0100, L500.2500 #### [facility] [address] [place], [address] GAP 5 Normal 5-15 [facility] Comment on above: Performed By: #### L 100.0100, L500.2500 #### [facility] [address] [place], [address] GFR/1.73 sq M.predicted among non-blacks MDRD (S/P/Bld) [Vol rate/Area] 101 mL/min/{1.73_m2} Normal >60 [facility] Comment on above: Result Comment: Non- GFR Calc Performed By: #### L 100.0100, L500.2500 #### [facility] [address] [place], [address] Glucose [Mass/Vol] 132 mg/dL High 74-106 [facility] Comment on above: Result Comment: Fast ing Glucose result greater than or equal to 126 mg/dL suggests DIABETES MELLITUS per A.D.A. criteria. Performed By: #### L 100.0100, L500.2500 #### [facility] [address] [place], [address] Potassium [Moles/Vol] 3.7 mmol/L Normal 3.5-5.1 [facility] Comment on above: Performed By: #### L 100.0100, L500.2500 #### [facility] [address] [place], [address] Sodium [Moles/Vol] 142 mmol/L Normal 136-145 [facility] Comment on above: Performed By: #### L 100.0100, L500.2500 #### [facility] [address] [place], [address] Urea nitrogen [Mass/Vol] 29 mg/dL High 7-18 [facility] Comment on above: Performed By: #### L 100.0100, L500.2500 #### [facility] [address] [place], [address] CBC W/Diff, Automatedon -07 31-2024 Absolute Lymph 0.39 X10 3/uL Low 0.83-4.51 [facility] Comment on above: Performed By: #### L 100.0100, L500.2500 #### [facility] [address] [place], [address] Absolute Neut 10.7 X10 3/uL High 2.0-7.7 [facility] Comment on above: Performed By: #### L 100.0100, L500.2500 #### [facility] [address] [place], [address] Basophils/100 WBC (Bld) 0.2 % Normal 0-1 [facility] Comment on above: Performed By: #### L 100.0100, L500.2500 #### [facility] [address] [place], [address] Eosinophils/100 WBC (Bld) 0.0 % Normal 0-5 [facility] Comment on above: Performed By: #### L 100.0100, L500.2500 #### [facility] [address] [place], [address] Erythrocyte distribution width (RBC) [Ratio] 16.5 % High 11.6-14.6 [facility] Comment on above: Performed By: #### L 100.0100, L500.2500 #### [facility] [address] [place], [address] Hematocrit (Bld) [Volume fraction] 43.4 % Normal 40-54 [facility] Comment on above: Performed By: #### L 100.0100, L500.2500 #### [facility] [address] [place], [address] Hemoglobin (Bld) [Mass/Vol] 14.7 g/dL Normal 13.0-16.5 [facility] Comment on above: Performed By: #### L 100.0100, L500.2500 #### [facility] [address] [place], [address] IG% 1.200 High 0.0-0.9 [facility] Comment on above: Result Comment: IG% - Immature Granulocytes (promyelocytes, myelocytes and metamyelocytes) > 1% indicates that a LEFT SHIFT is Present. Performed By: #### L 100.0100, L500.2500 #### [facility] [address] [place], [address] Lymphocytes/100 WBC (Bld) 3.3 % Low 19-41 [facility] Comment on above: Performed By: #### L 100.0100, L500.2500 #### [facility] [address] [place], [address] MCH (RBC) [Entitic mass] 32.3 pg High 27.0-32.0 [facility] Comment on above: Performed By: #### L 100.0100, L500.2500 #### [facility] [address] [place], [address] MCHC (RBC) [Mass/Vol] 33.9 g/dL Normal 32-36 [facility] Comment on above: Performed By: #### L 100.0100, L500.2500 #### [facility] [address] [place], [address] MCV (RBC) [Entitic vol] 95.4 fL High 80-94 [facility] Comment on above: Performed By: #### L 100.0100, L500.2500 #### [facility] [address] [place], [address] Monocytes/100 WBC (Bld) 4.3 % Normal 0-10 [facility] Comment on above: Performed By: #### L 100.0100, L500.2500 #### [facility] [address] [place], [address] Neutrophils/100 WBC (Bld) 91.0 % High 47-70 [facility] Comment on above: Performed By: #### L 100.0100, L500.2500 #### [facility] [address] [place], [address] Nucleated RBC (Bld) [#/Vol] 0 10*3/uL Normal 0-5 [facility] Comment on above: Performed By: #### L 100.0100, L500.2500 #### [facility] [address] [place], [address] Platelet mean volume (Bld) [Entitic vol] 11.9 fL Normal 6.2-12.0 [facility] Comment on above: Performed By: #### L 100.0100, L500.2500 #### [facility] [address] [place], [address] Platelets (Bld) [#/Vol] 166 10*3/uL Normal 150-450 [facility] Comment on above: Performed By: #### L 100.0100, L500.2500 #### [facility] [address] [place], [address] RBC (Bld) [#/Vol] 4.55 10*6/uL Low 4.6-6.2 [facility] Comment on above: Performed By: #### L 100.0100, L500.2500 #### [facility] [address] [place], [address] RDW SD 57.2 fl High 35.1-43.9 [facility] Comment on above: Performed By: #### L 100.0100, L500.2500 #### [facility] [address] [place], [address] WBC (Bld) [#/Vol] 11.8 10*3/uL High 4.4-11.0 [facility] Comment on above: Performed By: #### L 100.0100, L500.2500 #### [facility] [address] [place], [address] Gram Stainon 09-10-2024 GS Acceptable Specimen? Yes (<25 Epithelial cells per/lpf) Gram Stain 2+ Gram positive cocci 2+ Gram positive rods 1+ Red Blood Cells 1+ White Blood Cells 1+ Epithelial cells Normal [facility] Comment on above: Performed By: #### M 100.2400, M100.2000 ####[facility] [address] [place], [address] Basic Metabolic Profile (BMP )on 09-09-2024 BUN/CRE 35.1 RATIO High 10-20 [facility] Comment on above: Performed By: #### L 100.0100, L500.2500 #### [facility] [address] [place], [address] CA,Total 8.4 mg/dL Low 8.5-10.1 [facility] Comment on above: Performed By: #### L 100.0100, L500.2500 #### [facility] [address] [place], [address] Chloride [Moles/Vol] 107 mmol/L Normal 98-107 [facility] Comment on above: Performed By: #### L 100.0100, L500.2500 #### [facility] [address] [place], [address] CO2 [Moles/Vol] 24.0 mmol/L Normal 21.0-32.0 [facility] Comment on above: Performed By: #### L 100.0100, L500.2500 #### [facility] [address] [place], [address] Creatinine [Mass/Vol] 0.94 mg/dL Normal 0.70-1.30 [facility] Comment on above: Result Comment: The validity of the calculated GFR GFRAA in patients over 70 years has not been determined. Clinical correlation is essential. Performed By: #### L 100.0100, L500.2500 #### [facility] [address] [place], [address] ECRCL 57.13 ml/min Normal [facility] Comment on above: Performed By: #### L 100.0100, L500.2500 #### [facility] [address] [place], [address] EST GFR - AA 98 mL/min Normal >60 [facility] Comment on above: Result Comment: Afri can [place] GFR Calc Performed By: #### L 100.0100, L500.2500 #### [facility] [address] [place], [address] GAP 8 Normal 5-15 [facility] Comment on above: Performed By: #### L 100.0100, L500.2500 #### [facility] [address] [place], [address] GFR/1.73 sq M.predicted among non-blacks MDRD (S/P/Bld) [Vol rate/Area] 81 mL/min/{1.73_m2} Normal >60 [facility] Comment on above: Result Comment: Non- GFR Calc Performed By: #### L 100.0100, L500.2500 #### [facility] [address], [address] Glucose [Mass/Vol] 146 mg/dL High 74-106 [facility] Comment on above: Result Comment: Fast ing Glucose result greater than or equal to 126 mg/dL suggests DIABETES MELLITUS per A.D.A. criteria. Performed By: #### L 100.0100, L500.2500 #### [facility] [address] [place], [address] Potassium [Moles/Vol] 3.2 mmol/L Low 3.5-5.1 [facility] Comment on above: Performed By: #### L 100.0100, L500.2500 #### [facility] [address] [place], [address] Sodium [Moles/Vol] 139 mmol/L Normal 136-145 [facility] Comment on above: Performed By: #### L 100.0100, L500.2500 #### [facility] [address] [place], [address] Urea nitrogen [Mass/Vol] 33 mg/dL High 7-18 [facility] Comment on above: Performed By: #### L 100.0100, L500.2500 #### [facility] [address] [place], [address] CBC W/Diff, Automatedon 08-30 Absolute Lymph 0.57 X10 3/uL Low 0.83-4.51 [facility] Comment on above: Performed By: #### L 100.0100, L500.2500 #### [facility] [address] [place], [address] Absolute Neut 15.4 X10 3/uL High 2.0-7.7 [facility] Comment on above: Performed By: #### L 100.0100, L500.2500 #### [facility] [address] [place], [address] Basophils/100 WBC (Bld) 0.1 % Normal 0-1 [facility] Comment on above: Performed By: #### L 100.0100, L500.2500 #### [facility] [address] [place], [address] Eosinophils/100 WBC (Bld) 0.0 % Normal 0-5 [facility] Comment on above: Performed By: #### L 100.0100, L500.2500 #### [facility] [address] [place], [address] Erythrocyte distribution width (RBC) [Ratio] 16.6 % High 11.6-14.6 [facility] Comment on above: Performed By: #### L 100.0100, L500.2500 #### [facility] [address] [place], [address] Hematocrit (Bld) [Volume fraction] 43.3 % Normal 40-54 [facility] Comment on above: Performed By: #### L 100.0100, L500.2500 #### [facility] [address] [place], [address] Hemoglobin (Bld) [Mass/Vol] 14.4 g/dL Normal 13.0-16.5 [facility] Comment on above: Performed By: #### L 100.0100, L500.2500 #### [facility] [address] [place], [address] IG% 0.700 Normal 0.0-0.9 [facility] Comment on above: Result Comment: IG% - Immature Granulocytes (promyelocytes, myelocytes and metamyelocytes) > 1% indicates that a LEFT SHIFT is Present. Performed By: #### L 100.0100, L500.2500 #### [facility] [address] [place], [address] Lymphocytes/100 WBC (Bld) 3.3 % Low 19-41 [facility] Comment on above: Performed By: #### L 100.0100, L500.2500 #### [facility] [address] [place], [address] MCH (RBC) [Entitic mass] 31.4 pg Normal 27.0-32.0 [facility] Comment on above: Performed By: #### L 100.0100, L500.2500 #### [facility] [address] [place], [address] MCHC (RBC) [Mass/Vol] 33.3 g/dL Normal 32-36 [facility] Comment on above: Performed By: #### L 100.0100, L500.2500 #### [facility] [address] [place], [address] MCV (RBC) [Entitic vol] 94.5 fL High 80-94 [facility] Comment on above: Performed By: #### L 100.0100, L500.2500 #### [facility] [address] [place], [address] Monocytes/100 WBC (Bld) 7.2 % Normal 0-10 [facility] Comment on above: Performed By: #### L 100.0100, L500.2500 #### [facility] [address] [place], [address] Neutrophils/100 WBC (Bld) 88.7 % High 47-70 [facility] Comment on above: Performed By: #### L 100.0100, L500.2500 #### [facility] [address] [place], [address] Nucleated RBC (Bld) [#/Vol] 0 10*3/uL Normal 0-5 [facility] Comment on above: Performed By: #### L 100.0100, L500.2500 #### [facility] [address] [place], [address] Platelet mean volume (Bld) [Entitic vol] 11.4 fL Normal 6.2-12.0 [facility] Comment on above: Performed By: #### L 100.0100, L500.2500 #### [facility] [address] [place], [address] Platelets (Bld) [#/Vol] 178 10*3/uL Normal 150-450 [facility] Comment on above: Performed By: #### L 100.0100, L500.2500 #### [facility] [address] [place], [address] RBC (Bld) [#/Vol] 4.58 10*6/uL Low 4.6-6.2 [facility] Comment on above: Performed By: #### L 100.0100, L500.2500 #### [facility] [address] [place], [address] RDW SD 56.1 fl High 35.1-43.9 [facility] Comment on above: Performed By: #### L 100.0100, L500.2500 #### [facility] [address] [place], [address] WBC (Bld) [#/Vol] 17.4 10*3/uL High 4.4-11.0 [facility] Comment on above: Performed By: #### L 100.0100, L500.2500 #### [facility] [address] [place], [address] [facility]20[facility] TRUPTICLARK Mega ([id number]) 1935 M Date Time Provider Department 09/09/24 BRIGITTE SEGAL During your visit today, we recorded the following information about you: Brigitte Segal, COMPOUNDING SCALER.PASTRYCOOK 09/09/2024 10:05 AM Signed Patient was admitted to [facility] on September 07 to 2024 for altered [...] Date Reviewed: 03/27/2024 Reviewed by: Brigitte Segal APRN.PASTRYCOOK - Fully Assessed Prescriptions as of 09/09/2024 [...] Meds Comments as of 04/18/2021: Taking Saw [place]. Problem List As Of Date 09/09/2024 Noted Resolved BENIGN HYPERTENSION [I10] 01/08/2006 Anxiety state [F41.1] 01/05/2009 GERD (gastroesophageal reflux disease) [K21.9] 01/10/2011 BPH (benign prostatic hyperplasia) [N40.0] 03/17/2013 PAD (peripheral artery disease) ([facility]) [I73.9] 02/28/2014 Hyperlipidemia LDL goal <100 [E78.5] 03/28/2016 Hyperbilirubinemia [E80.6] 05/10/2016 Parkinson's disease (HCC) [G20.A1] 07/11/2017 Angina pectoris ([facility]) [I20.9] 08/25/2019 Restless legs syndrome [G25.81] 01/27/2020 Iron deficiency anemia due to chronic blood los*01/27/2020 Coronary artery disease involving solomon rabago*12/22/2020 S/P primary angioplasty with coronary stent [Z9*12/22/2020 Fall from standing [W19.XXXA] 09/20/2021 Encounter for support and coordination of trans*08/11/2023 Acute respiratory failure with hypoxia (HCC) [J*09/25/2023 Encounter Status:Closed by BRIGITTE SEGAL on 09/09/24 Normal [facility] Gram stainOrdered By: Lester stein on 09-09-2024 Microscopic observation Gram stain Nom (Unsp spec) [facility] Legionella Antigen Urineon 0 09-09-2024 LEGU URINE, CLEAN CATCH Legionella Antigen result interpretation: L pneumo Ag Ur Ql Negative Presumptive negative for Legionella pneumophila serogroup 1 antigen in urine, suggesting no recent or current infection. Legionella Ag, Urine Negative (See interpretation below) [facility] Comment on above: Performed By: #### L 100.0100, L500.2500 #### [facility] [address] [place], [place], [id number] Microbial respiratory cultur eOrdered By: Lester Perdomo on 09-09-2024 Microorganism identified Cx Nom (Unsp spec) [facility] Strep pneumoniae Antig(UR,CS F)on 09-09-2024 STPAG URINE INTERPRETATION Strep pneumoniae Antig(UR,CSF) Negative Urine Presumptive negative for pneumococcal pneumonia, suggesting no current or recent pneumococcal infection. Infection due to S pneumoniae cannot be ruled out since the antigen present in the sample may be below the detection limit of the test. Strep pneumo Test Negative URINE (See interpretation below) Normal [facility] Comment on above: Performed By: #### L 100.0100, L500.2500 #### [facility] [address] [place], [address] Urine Legionella pneumophila antigen detectionOrdered By: Lester Perdomo on 09-09-2024 L. pneumophila Ag Ql (U) [facility] Abdomen Single Viewon 2024 Abdomen Single View [facility] [address] [place], [place] [id number] Abdomen Single View MR#: [id number] Acct: [id number] Name: CLARK LYLES Rep #: [id number] : 1935 M 88 From: Mike Vela DO PCP: MARIANA Humphreys Status: ADM IN Study: Abdomen Single View Date of Exam: 09/08/24 Exam# [id number] Ordering Dr: Lester Perdomo DO PROCEDURE: ABDOMEN [...] pubic ramus bone. Reading Location: [facility] CC: EXECUTIVE VICE PRESIDENT AND CHIEF FINANCIAL OFFICER Brigitte Segal; Dr. Lester Perdomo DO Medical Dosimetrist: Signed Normal [facility] Basic Metabolic Profile (BMP )on 09-08-2024 BUN/CRE 33.0 RATIO High 10-20 [facility] Comment on above: Performed By: #### L 500.2500, L501.5200, L100.0100, L501.2300 ####[facility] [address] [place], [address] CA,Total 8.6 mg/dL Normal 8.5-10.1 [facility] Comment on above: Performed By: #### L 500.2500, L501.5200, L100.0100, L501.2300 ####[facility] [address] [place], [address] Chloride [Moles/Vol] 106 mmol/L Normal 98-107 [facility] Comment on above: Performed By: #### L 500.2500, L501.5200, L100.0100, L501.2300 ####[facility] [address] [place], [address] CO2 [Moles/Vol] 22.0 mmol/L Normal 21.0-32.0 [facility] Comment on above: Performed By: #### L 500.2500, L501.5200, L100.0100, L501.2300 ####[facility] [address] [place], [address] Creatinine [Mass/Vol] 0.82 mg/dL Normal 0.70-1.30 [facility] Comment on above: Result Comment: The validity of the calculated GFR GFRAA in patients over 70 years has not been determined. Clinical correlation is essential. Performed By: #### L 500.2500, L501.5200, L100.0100, L501.2300 ####[facility] [address] [place], [address] ECRCL 66.59 ml/min Normal [facility] Comment on above: Performed By: #### L 500.2500, L501.5200, L100.0100, L501.2300 ####[facility] [address] [place], [address] EST GFR - AA 115 mL/min Normal >60 [facility] Comment on above: Result Comment: Afri can [place] GFR Calc Performed By: #### L 500.2500, L501.5200, L100.0100, L501.2300 ####[facility] [address] [place], [address] GAP 11 Normal 5-15 [facility] Comment on above: Performed By: #### L 500.2500, L501.5200, L100.0100, L501.2300 ####[facility] [address] [place], [address] GFR/1.73 sq M.predicted among non-blacks MDRD (S/P/Bld) [Vol rate/Area] 95 mL/min/{1.73_m2} Normal >60 [facility] Comment on above: Result Comment: Non- GFR Calc Performed By: #### L 500.2500, L501.5200, L100.0100, L501.2300 ####[facility] [address] [place], [address] Glucose [Mass/Vol] 150 mg/dL High 74-106 [facility] Comment on above: Result Comment: Fast ing Glucose result greater than or equal to 126 mg/dL suggests DIABETES MELLITUS per A.D.A. criteria. Performed By: #### L 500.2500, L501.5200, L100.0100, L501.2300 ####[facility] [address] [place], [address] Potassium [Moles/Vol] 3.2 mmol/L Low 3.5-5.1 [facility] Comment on above: Performed By: #### L 500.2500, L501.5200, L100.0100, L501.2300 ####[facility] [address] [place], [address] Sodium [Moles/Vol] 138 mmol/L Normal 136-145 [facility] Comment on above: Performed By: #### L 500.2500, L501.5200, L100.0100, L501.2300 ####[facility] [address] [place], [address] Urea nitrogen [Mass/Vol] 27 mg/dL High 7-18 [facility] Comment on above: Performed By: #### L 500.2500, L501.5200, L100.0100, L501.2300 ####[facility] [address] [place], [address] CBC W/Diff, Automatedon 02-1 0-2024 Absolute Lymph 0.32 X10 3/uL Low 0.83-4.51 [facility] Comment on above: Performed By: #### L 500.2500, L501.5200, L100.0100, L501.2300 #### [facility] [address] [place], [address] Absolute Neut 7.4 X10 3/uL Normal 2.0-7.7 [facility] Comment on above: Performed By: #### L 500.2500, L501.5200, L100.0100, L501.2300 #### [facility] [address] [place], [address] Basophils/100 WBC (Bld) 0.1 % Normal 0-1 [facility] Comment on above: Performed By: #### L 500.2500, L501.5200, L100.0100, L501.2300 #### [facility] [address] [place], [address] Eosinophils/100 WBC (Bld) 0.0 % Normal 0-5 [facility] Comment on above: Performed By: #### L 500.2500, L501.5200, L100.0100, L501.2300 #### [facility] [address] [place], [address] Erythrocyte distribution width (RBC) [Ratio] 16.0 % High 11.6-14.6 [facility] Comment on above: Performed By: #### L 500.2500, L501.5200, L100.0100, L501.2300 #### [facility] [address] [place], [address] Hematocrit (Bld) [Volume fraction] 42.9 % Normal 40-54 [facility] Comment on above: Performed By: #### L 500.2500, L501.5200, L100.0100, L501.2300 #### [facility] [address] [place], [address] Hemoglobin (Bld) [Mass/Vol] 15.4 g/dL Normal 13.0-16.5 [facility] Comment on above: Performed By: #### L 500.2500, L501.5200, L100.0100, L501.2300 #### [facility] [address] [place], [address] IG% 0.800 Normal 0.0-0.9 [facility] Comment on above: Result Comment: IG% - Immature Granulocytes (promyelocytes, myelocytes and metamyelocytes) > 1% indicates that a LEFT SHIFT is Present. Performed By: #### L 500.2500, L501.5200, L100.0100, L501.2300 #### [facility] [address] [place], [address] Lymphocytes/100 WBC (Bld) 4.1 % Low 19-41 [facility] Comment on above: Performed By: #### L 500.2500, L501.5200, L100.0100, L501.2300 #### [facility] [address] [place], [address] MCH (RBC) [Entitic mass] 33.1 pg High 27.0-32.0 [facility] Comment on above: Performed By: #### L 500.2500, L501.5200, L100.0100, L501.2300 #### [facility] [address] [place], [address] MCHC (RBC) [Mass/Vol] 35.9 g/dL Normal 32-36 [facility] Comment on above: Performed By: #### L 500.2500, L501.5200, L100.0100, L501.2300 #### [facility] [address] [place], [address] MCV (RBC) [Entitic vol] 92.3 fL Normal 80-94 [facility] Comment on above: Performed By: #### L 500.2500, L501.5200, L100.0100, L501.2300 #### [facility] [address] [place], [address] Monocytes/100 WBC (Bld) 2.0 % Normal 0-10 [facility] Comment on above: Performed By: #### L 500.2500, L501.5200, L100.0100, L501.2300 #### [facility] [address] [place], [address] Neutrophils/100 WBC (Bld) 93.0 % High 47-70 [facility] Comment on above: Performed By: #### L 500.2500, L501.5200, L100.0100, L501.2300 #### [facility] [address] [place], [address] Nucleated RBC (Bld) [#/Vol] 0 10*3/uL Normal 0-5 [facility] Comment on above: Performed By: #### L 500.2500, L501.5200, L100.0100, L501.2300 #### [facility] [address] [place], [address] Platelet mean volume (Bld) [Entitic vol] 11.6 fL Normal 6.2-12.0 [facility] Comment on above: Performed By: #### L 500.2500, L501.5200, L100.0100, L501.2300 #### [facility] [address] [place], [address] Platelets (Bld) [#/Vol] 183 10*3/uL Normal 150-450 [facility] Comment on above: Performed By: #### L 500.2500, L501.5200, L100.0100, L501.2300 #### [facility] [address] [place], [address] RBC (Bld) [#/Vol] 4.65 10*6/uL Normal 4.6-6.2 [facility] Comment on above: Performed By: #### L 500.2500, L501.5200, L100.0100, L501.2300 #### [facility] [address] [place], [address] RDW SD 52.6 fl High 35.1-43.9 [facility] Comment on above: Performed By: #### L 500.2500, L501.5200, L100.0100, L501.2300 #### [facility] [address] [place], [address] WBC (Bld) [#/Vol] 7.9 10*3/uL Normal 4.4-11.0 [facility] Comment on above: Performed By: #### L 500.2500, L501.5200, L100.0100, L501.2300 #### [facility] [address] [place], [address] CTA Chest W/WO Contraston CTA Chest W/WO Contrast [facility] Imaging Services [address] [place] [address] CTA Chest W/WO Contrast MR#: [id number] Acct: [id number] Name: CLARK LYLES Rep #: [id number] : 1935 M 88 From: Jose araujo MD PCP: Brigitte Segal, EXECUTIVE VICE PRESIDENT AND CHIEF FINANCIAL OFFICER Status: ADM IN Study: CTA Chest W/WO Contrast Date of Exam: 09/08/24 Exam# [id number] Ordering Dr: Lester Perdomo DO PROCEDURE: CTA [...] use of iterative reconstruction technique). Reading Location: [place] [address] CC: EXECUTIVE VICE PRESIDENT AND CHIEF FINANCIAL OFFICER Brigitte Segal; Dr. Lester Perdomo DO Medical Dosimetrist: Signed Normal [facility] Echo, Limited Studyon 2024 Echo, Limited Study [facility] Cardiovascular Services [address] [place] [address] Echo, Limited Study 09/08/24 1446 MR#: [id number] Acct: [id number] Name: CLARK LYLES Rep #: [id number] : 1935 88 From: Dejuan Brooks MD Attending Dr: Dr. Lester Perdomo DO Status: ADM IN Ordering Dr: Lester Perdomo DO Date: 09/08/24 Location: [facility] Sex: M C Admitted: 09/07/24 Reason For [...] RCS 09/09/24833 Date Dejuan Brooks MD CC: EXECUTIVE VICE PRESIDENT AND CHIEF FINANCIAL OFFICER Brigitte Segal; Dr. Lester Perdomo, Date Dictated: 09/08/24 1446 Date Transcribed: 09/09/24833 Medical Dosimetrist: Signed Normal [facility] Magnesiumon 09-08-2024 Magnesium [Mass/Vol] 1.8 mg/dL Normal 1.6-2.6 [facility] Comment on above: Performed By: #### L 500.2500, L501.5200, L100.0100, L501.2300 ####[facility] [address] [facility] [place], [address] Magnesium measurementOrdered By: Jerrell Faith on 09-08-2024 Magnesium [Mass/Vol] 1.8 mg/dL 1.6-2.6 [facility] Phosphoruson 09-08-2024 Phosphate [Mass/Vol] 3.9 mg/dL Normal 2.5-4.9 [facility] Comment on above: Performed By: #### L 500.2500, L501.5200, L100.0100, L501.2300 ####[facility] [address] [facility] [place], [address] 12 Lead EKGon 09-07-2024 12 Lead EKG [facility] Cardiovascular Services [address] [place] [address] 12 Lead EKG 09/07/24 1105 MR#: [id number] Acct: [id number] Name: CLARK LYLES Rep #: [id number] : 1935 88 From: Dejuan Brooks MD Attending Dr: Dr. Lester Perdomo DO Status: ADM IN Ordering Dr: Neo Tejeda DO Date: 09/07/24 Location: [facility] Sex: M C Admitted: 09/07/24 Test Reason [...] normal ECG Confirmed by TODD MANUEL, DEJUAN ([id number]), editor continuity and script FARSHAD PANDYA ([id number]) on 09/08/2024 11:07:09 AM Referred By: Confirmed By: DEJUAN BROOKS MD 09/08/24 110 Date Dejuan Brooks MD CC: MARIANA Segal; Dr. Lester Perdomo DO; Dr. Neo Tejeda DO Signed Normal [facility] Activated partial thrombopla stin time (aPTT) in platelet poor plasma by coagulation aOrdered By: Neo Tejeda on 09-07-2024 aPTT Coag (PPP) [Time] 26.5 s 24.1-36.2 [facility] Assessment of wrist artery p atency prior to arterial punctureOrdered By: Neo Tejeda on 09-07-2024 Arterial patency Wrist artery --pre arterial puncture Positive [facility] BNP (brain natriuretic pepti de measurement)Ordered By: Neo Tejeda on 09-07-2024 Natriuretic peptide B (Bld) [Mass/Vol] 221.1 pg/mL High 0-100 [facility] BNP,B-Type NATRIURETIC PEPTI Giovanni 09-07-2024 Natriuretic peptide B (Bld) [Mass/Vol] 221.1 pg/mL High 0-100 [facility] Comment on above: Performed By: #### L 503.6620 ####[facility] [address] [place], [address] Basic Metabolic Profile (BMP )on 09-07-2024 BUN/CRE 19.2 RATIO Normal 10-20 [facility] Comment on above: Order Comment: 'TROP ' Serial specimen #1, #2 or #3: 1 Performed By: #### L 500.2500, L501.4020, L100.0100, L300.3900, L300.4310 ####[facility] [address] [place], [address] CA,Total 8.7 mg/dL Normal 8.5-10.1 [facility] Comment on above: Order Comment: 'TROP ' Serial specimen #1, #2 or #3: 1 Performed By: #### L 500.2500, L501.4020, L100.0100, L300.3900, L300.4310 ####[facility] [address] [place], [address] Chloride [Moles/Vol] 104 mmol/L Normal 98-107 [facility] Comment on above: Order Comment: 'TROP ' Serial specimen #1, #2 or #3: 1 Performed By: #### L 500.2500, L501.4020, L100.0100, L300.3900, L300.4310 ####[facility] [address] [place], [address] CO2 [Moles/Vol] 18.0 mmol/L Low 21.0-32.0 [facility] Comment on above: Order Comment: 'TROP ' Serial specimen #1, #2 or #3: 1 Performed By: #### L 500.2500, L501.4020, L100.0100, L300.3900, L300.4310 ####[facility] [address] [place], [address] Creatinine [Mass/Vol] 1.04 mg/dL Normal 0.70-1.30 [facility] Comment on above: Order Comment: 'TROP ' Serial specimen #1, #2 or #3: 1 Result Comment: The validity of the calculated GFR GFRAA in patients over 70 years has not been determined. Clinical correlation is essential. Performed By: #### L 500.2500, L501.4020, L100.0100, L300.3900, L300.4310 ####[facility] [address] [place], [address] ECRCL 49.04 ml/min Normal [facility] Comment on above: Order Comment: 'TROP ' Serial specimen #1, #2 or #3: 1 Performed By: #### L 500.2500, L501.4020, L100.0100, L300.3900, L300.4310 ####[facility] [address] [place], [address] EST GFR - AA 87 mL/min Normal >60 [facility] Comment on above: Order Comment: 'TROP ' Serial specimen #1, #2 or #3: 1 Result Comment: Afri can [place]uran GFR Calc Performed By: #### L 500.2500, L501.4020, L100.0100, L300.3900, L300.4310 ####[facility] [address] [place], [address] GAP 16 High 5-15 [facility] Comment on above: Order Comment: 'TROP ' Serial specimen #1, #2 or #3: 1 Performed By: #### L 500.2500, L501.4020, L100.0100, L300.3900, L300.4310 ####[facility] [address] [place], [address] GFR/1.73 sq M.predicted among non-blacks MDRD (S/P/Bld) [Vol rate/Area] 72 mL/min/{1.73_m2} Normal >60 [facility] Comment on above: Order Comment: 'TROP ' Serial specimen #1, #2 or #3: 1 Result Comment: Non- GFR Calc Performed By: #### L 500.2500, L501.4020, L100.0100, L300.3900, L300.4310 ####[facility] [address] [place], [address] Glucose [Mass/Vol] 77 mg/dL Normal 74-106 [facility] Comment on above: Order Comment: 'TROP ' Serial specimen #1, #2 or #3: 1 Performed By: #### L 500.2500, L501.4020, L100.0100, L300.3900, L300.4310 ####[facility] [address] [place], [address] Potassium [Moles/Vol] 3.3 mmol/L Low 3.5-5.1 [facility] Comment on above: Order Comment: 'TROP ' Serial specimen #1, #2 or #3: 1 Performed By: #### L 500.2500, L501.4020, L100.0100, L300.3900, L300.4310 ####[facility] [address] [place], [address] Sodium [Moles/Vol] 138 mmol/L Normal 136-145 [facility] Comment on above: Order Comment: 'TROP ' Serial specimen #1, #2 or #3: 1 Performed By: #### L 500.2500, L501.4020, L100.0100, L300.3900, L300.4310 ####[facility] [address] [place], [address] Urea nitrogen [Mass/Vol] 20 mg/dL High 7-18 [facility] Comment on above: Order Comment: 'TROP ' Serial specimen #1, #2 or #3: 1 Performed By: #### L 500.2500, L501.4020, L100.0100, L300.3900, L300.4310 ####[facility] [address] [place], [address] Bilirubin Test strip Ql (U)O rdered By: Neo Tejeda on 09-07-2024 Bilirubin Ql (U) Negative Negative [facility] Blood Gases by CPSon 025 MAGUI TEST Positive Normal [facility] Comment on above: Performed By: #### L 100.0100, L500.2500 #### [facility] Laboratory [address] [place], [address] Base excess Calc (Bld) [Moles/Vol] -8 mmol/L Low -2 to +2 [facility] Comment on above: Performed By: #### L 100.0100, L500.2500 #### [facility] [address] [place], [address] Blood Gas Type ART Normal [facility] Comment on above: Performed By: #### L 100.0100, L500.2500 #### [facility] [address] [place], [address] CO2 [Moles/Vol] 18 mmol/L Normal [facility] Comment on above: Performed By: #### L 100.0100, L500.2500 #### [facility] [address] [place], [address] Comment AIRVO 60L Normal [facility] Comment on above: Performed By: #### L 100.0100, L500.2500 #### [facility] [address] [place], [address] FI02 50.0 Normal [facility] Comment on above: Performed By: #### L 100.0100, L500.2500 #### [facility] [address] [place], [address] HCO3 (Bld) [Moles/Vol] 17.0 mmol/L Low 22-26 [facility] Comment on above: Performed By: #### L 100.0100, L500.2500 #### [facility] [address] [place], [address] Mode Not entered Normal [facility] Comment on above: Performed By: #### L 100.0100, L500.2500 #### [facility] [address] [place], [address] O2 Delivery Dev HFNC Normal [facility] Comment on above: Performed By: #### L 100.0100, L500.2500 #### [facility] [address] [place], [address] pCO2 28.6 mmHg Low 35-45 [facility] Comment on above: Performed By: #### L 100.0100, L500.2500 #### [facility] [address] [place], [address] pH (Bld) 7.38 [pH] Normal 7.35-7.45 [facility] Comment on above: Performed By: #### L 100.0100, L500.2500 #### [facility] [address] [place], [address] PO2 102 mmHG High 75-100 [facility] Comment on above: Performed By: #### L 100.0100, L500.2500 #### [facility] [address] [place], [address] SITE R Radial Normal [facility] Comment on above: Performed By: #### L 100.0100, L500.2500 #### [facility] [address] [place], [address] SO2 98 Normal 95-99 [facility] Comment on above: Performed By: #### L 100.0100, L500.2500 #### [facility] [address] [place], [address] Blood base excess determinat ionOrdered By: Neo Tejeda on 09-07-2024 Base excess Calc (BldV) [Moles/Vol] -8 mmol/L Low -2-2 [facility] Blood bicarbonate measuremen tOrdered By: Neo Tejeda on 09-07-2024 HCO3 (Bld) [Moles/Vol] 17.0 mmol/L Low 22-26 [facility] CBC W/Diff, Automatedon Absolute Lymph 0.74 X10 3/uL Low 0.83-4.51 [facility] Comment on above: Performed By: #### L 500.2500, L501.4020, L100.0100, L300.3900, L300.4310 ####[facility] [address] [place], [address] Absolute Neut 10.8 X10 3/uL High 2.0-7.7 [facility] Comment on above: Performed By: #### L 500.2500, L501.4020, L100.0100, L300.3900, L300.4310 ####[facility] [address] [place], [address] Basophils/100 WBC (Bld) 0.3 % Normal 0-1 [facility] Comment on above: Performed By: #### L 500.2500, L501.4020, L100.0100, L300.3900, L300.4310 ####[facility] [address] [place], [address] Eosinophils/100 WBC (Bld) 0.1 % Normal 0-5 [facility] Comment on above: Performed By: #### L 500.2500, L501.4020, L100.0100, L300.3900, L300.4310 ####[facility] [address] [place], [address] Erythrocyte distribution width (RBC) [Ratio] 16.4 % High 11.6-14.6 [facility] Comment on above: Performed By: #### L 500.2500, L501.4020, L100.0100, L300.3900, L300.4310 ####[facility] [address] [place], [address] Hematocrit (Bld) [Volume fraction] 46.6 % Normal 40-54 [facility] Comment on above: Performed By: #### L 500.2500, L501.4020, L100.0100, L300.3900, L300.4310 ####[facility] [address] [place], [address] Hemoglobin (Bld) [Mass/Vol] 15.8 g/dL Normal 13.0-16.5 [facility] Comment on above: Performed By: #### L 500.2500, L501.4020, L100.0100, L300.3900, L300.4310 ####[facility] [address] [place], [address] IG% 1.200 High 0.0-0.9 [facility] Comment on above: Result Comment: IG% - Immature Granulocytes (promyelocytes, myelocytes and metamyelocytes) > 1% indicates that a LEFT SHIFT is Present. Performed By: #### L 500.2500, L501.4020, L100.0100, L300.3900, L300.4310 ####[facility] [address] [place], [address] Lymphocytes/100 WBC (Bld) 5.8 % Low 19-41 [facility] Comment on above: Performed By: #### L 500.2500, L501.4020, L100.0100, L300.3900, L300.4310 ####[facility] [address] [place], [address] MCH (RBC) [Entitic mass] 31.5 pg Normal 27.0-32.0 [facility] Comment on above: Performed By: #### L 500.2500, L501.4020, L100.0100, L300.3900, L300.4310 ####[facility] [address] [place], [address] MCHC (RBC) [Mass/Vol] 33.9 g/dL Normal 32-36 [facility] Comment on above: Performed By: #### L 500.2500, L501.4020, L100.0100, L300.3900, L300.4310 ####[facility] [address] [place], [address] MCV (RBC) [Entitic vol] 93.0 fL Normal 80-94 [facility] Comment on above: Performed By: #### L 500.2500, L501.4020, L100.0100, L300.3900, L300.4310 ####[facility] [address] [place], [address] Monocytes/100 WBC (Bld) 7.4 % Normal 0-10 [facility] Comment on above: Performed By: #### L 500.2500, L501.4020, L100.0100, L300.3900, L300.4310 ####[facility] [address] [place], [address] Neutrophils/100 WBC (Bld) 85.2 % High 47-70 [facility] Comment on above: Performed By: #### L 500.2500, L501.4020, L100.0100, L300.3900, L300.4310 ####[facility] [address] [place], [address] Nucleated RBC (Bld) [#/Vol] 0 10*3/uL Normal 0-5 [facility] Comment on above: Performed By: #### L 500.2500, L501.4020, L100.0100, L300.3900, L300.4310 ####[facility] [address] [place], [address] Platelet mean volume (Bld) [Entitic vol] 11.0 fL Normal 6.2-12.0 [facility] Comment on above: Performed By: #### L 500.2500, L501.4020, L100.0100, L300.3900, L300.4310 ####[facility] [address] [place], [address] Platelets (Bld) [#/Vol] 195 10*3/uL Normal 150-450 [facility] Comment on above: Performed By: #### L 500.2500, L501.4020, L100.0100, L300.3900, L300.4310 ####[facility] [address] [place], [address] RBC (Bld) [#/Vol] 5.01 10*6/uL Normal 4.6-6.2 [facility] Comment on above: Performed By: #### L 500.2500, L501.4020, L100.0100, L300.3900, L300.4310 ####[facility] [address] [place], [address] RDW SD 53.0 fl High 35.1-43.9 [facility] Comment on above: Performed By: #### L 500.2500, L501.4020, L100.0100, L300.3900, L300.4310 ####[facility] [address] [place], [address] WBC (Bld) [#/Vol] 12.7 10*3/uL High 4.4-11.0 [facility] Comment on above: Performed By: #### L 500.2500, L501.4020, L100.0100, L300.3900, L300.4310 ####[facility] [address] [place], [address] CTA Head AND Neck W/ Contras ton 09-07-2024 CTA Head AND Neck W/ Contrast [facility] Imaging Services [address] [place] [address] CTA Head AND Neck W/ Contrast MR#: [id number] Acct: [id number] Name: CLARK LYLES Rep #: [id number] : 1935 M 88 From: Axel Marie MD PCP: Brigitte Segal, EXECUTIVE VICE PRESIDENT AND CHIEF FINANCIAL OFFICER Status: REG ER Study: CTA Head AND Neck W/ Contrast Date of Exam: Exam# [id number] Ordering Dr: Neo Tejeda DO PROCEDURE: CTA [...] use of iterative reconstruction technique). Reading [facility] CC: EXECUTIVE VICE PRESIDENT AND CHIEF FINANCIAL OFFICER Brigitte Segal; Dr. Neo Tejeda DO Medical Dosimetrist: Signed Normal [facility] Calcium oxalate crystals det ection in urine sediment by light microscopyOrdered By: Neo Tejeda on 09-07-2024 Calcium oxalate crystals LM Ql (Urine sed) 1+ /hpf [facility] Chest 1 Viewon 09-07-2024 Chest 1 View [facility] Imaging Services [address] [place] [address] Chest 1 View MR#: [id number] Acct: [id number] Name: CLARK LYLES Rep #: [id number] : 1935 M 88 From: Axel Marie MD PCP: MARIANA Humphreys Status: REG ER Study: Chest 1 View Date of Exam: 09/07/24 Exam# [id number] Ordering Dr: Neo Tjeeda DO PROCEDURE: CHEST 1 VIEW REASON FOR EXAM: Cough TECHNIQUE: Frontal view of the chest. COMPARISON: Reviewed. FINDINGS: The cardiac and mediastinal contours are normal. The lungs are clear. RAD/Chest 1 View IMPRESSION: No acute radiographic process. Reading Location: [facility] CC: EXECUTIVE VICE PRESIDENT AND CHIEF FINANCIAL OFFICER Brigitte Segal; Dr. Neo Tejeda DO Medical Dosimetrist: Signed Normal [facility] D-Dimer Quantitative (DVT/PE )on 09-07-2024 D-DIMER QUANT 1.63 FEU/ug/m Invalid Interpretation Code 0.27-0.49 [facility] Comment on above: Result Comment: D-Di marv ELEVATED (>0.49): Additional studies and clinical assessments are indicated to conclude diagnosis of: Deep Vein Thrombosis (DVT) or Pulmonary Embolism (PE) CRITICAL VALUE CALLED TO NIKOLAS HILL 09/07/24 Abdiel Lizarraga. RESULTS READ BACK BY SAME. Performed By: #### L 100.0100, L500.2500 #### [facility] Laboratory [address] [place], [address] Elbow min 3 Viewson 09-07-19 25 Elbow min 3 Views [facility] Imaging Services [address] [place] [address] Elbow min 3 Views MR#: [id number] Acct: [id number] Name: CLARK LYLES Rep #: [id number] : 1935 M 88 From: Axel Marie MD PCP: MARIANA Humphreys Status: REG ER Study: Elbow min 3 Views Date of Exam: 09/07/24 Exam# [id number] Ordering Dr: Neo Tejeda DO PROCEDURE: ELBOW [...] No other acute radiographic process. Reading Location: [facility] CC: EXECUTIVE VICE PRESIDENT AND CHIEF FINANCIAL OFFICER Brigitte Segal; Dr. Neo Tejeda DO Medical Dosimetrist: Signed Normal [facility] Elbow min 3 Views [facility] [address] [place], [place] [address] Elbow min 3 Views MR#: [id number] Acct: [id number] Name: CLARK LYLES Rep #: [id number] : 1935 M 88 From: Axel Marie MD PCP: MARIANA Humphreys Status: REG ER Study: Elbow min 3 Views Date of Exam: 09/07/24 Exam# [id number] Ordering Dr: Neo Tejeda DO PROCEDURE: ELBOW [...] No other acute radiographic process. Reading Location: [facility] CC: MARIANA Segal; Dr. Neo Tejeda DO Medical Dosimetrist: Signed Normal [facility] Emergency Department Summary on 09-07-2024 Emergency Department Summary [facility] Medical Records Department [address] [place] [address] Emergency Department Summary 09/07/24 MR#: [id number] Acct: [id number] Name: CLARK LYLES Rep #: [id number] : 1935 88 From: Neo Tejeda DO PCP: Brigitte Segal, EXECUTIVE VICE PRESIDENT AND CHIEF FINANCIAL OFFICER Status:ADM IN Location: [place] [address] HPI History of Present Illness Chief Complaint: Stroke Alert [facility] Medical History (Updated 09/07/24 @ 13:[address] 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 Normal [facility] H AND P Exam - Hospitaliston 09-07-2024 H&P Exam - Hospitalist [facility] Medical Records Department [address] [place] [address] H P Exam - Hospitalist 09/07/24 1317 MR#: [id number] Acct: [id number] Name: CLARK LYLES Rep #: [id number] : 1935 88 From: Jerrell Faith MD PCP: Brigitte Segal, EXECUTIVE VICE PRESIDENT AND CHIEF FINANCIAL OFFICER Status:ADM IN Location: [place] [address] HPI - General General Date of Admission: [...] admitted to monitored bed for further management [facility] Medical History (Updated 09/07/24 @ 13:[address] Jerrell Faith MD) COVID-19 virus detected (08/23/20) Anxiety and depression Chronic anemia Acute respiratory failure with hypoxia Hypoxia Pneumonia due to COVID-19 virus GI bleed (12/2019) Atherosclerosis of coronary artery of solomon heart without angina pectoris Peripheral vascular occlusive [...] 10:23 02/ (more content not included)... Normal [facility] Hyaline casts LM.LPF (Urine sed) [#/Area]Ordered By: Neo Tejeda on 09-07-2024 Hyaline casts (Urine sed) [#/Area] 0 /[LPF] 0-5 [facility] Influenza virus A and B and SARS-CoV-2 (COVID-19) and Respiratory syncytial virus RNAOrdered By: Neo Tejeda on 09-07-2024 SARS-CoV-2 (COVID-19) RNA CAMERON+probe Ql (Unsp spec) [facility] International normalized rat io (INR) calculationOrdered By: Neo Tejeda on 09-07-2024 INR Coag (Bld) [Relative time] 1.0 {INR} [facility] Ketones Test strip Ql (U)Ord ered By: Neo Tejeda on 09-07-2024 Ketones Ql (U) 5 mg/dl High Negative [facility] L501.4020on 09-07-2024 TROPONIN-I HS 68 pg/mL Normal 3.0-78.0 [facility] Comment on above: Order Comment: Comme nts: SPECIMEN #3'TROP' Serial specimen #1, #2 or #3: 3 Result Comment: Plea se Note: New Test Units and Gender Specific Reference Ranges. For more information see Policy Stat Procedure [place] High Sensitivity Troponin (TNIH) and attachments. Performed By: #### L 100.0100, L500.2500 #### [facility] Laboratory [address] [place], [address] TROPONIN-I HS 76 pg/mL Normal 3.0-78.0 [facility] Comment on above: Order Comment: Comme nts: SPECIMEN #2'TROP' Serial specimen #1, #2 or #3: 2 Result Comment: Plea se Note: New Test Units and Gender Specific Reference Ranges. For more information see Policy Stat Procedure [place] High Sensitivity Troponin (TNIH) and attachments. Performed By: #### L 100.0100, L500.2500 #### [facility] Laboratory [address] [place], [address] TROPONIN-I HS 63 pg/mL Normal 3.0-78.0 [facility] Comment on above: Order Comment: 'TROP ' Serial specimen #1, #2 or #3: 1 Result Comment: Plea se Note: New Test Units and Gender Specific Reference Ranges. For more information see Policy Stat Procedure [place] High Sensitivity Troponin (TNIH) and attachments. Performed By: #### L 500.2500, L501.4020, L100.0100, L300.3900, L300.4310 ####[facility] [address] [place], [address] M100.678on 09-07-2024 M100.678 Pending SARS-CoV-2 (COVID 19) Negative INFLUENZA A Negative INFLUENZA B Negative RSV PCR Negative Normal [facility] Comment on above: Performed By: #### L 100.0100, L500.2500 #### [facility] Laboratory [address] [place], [place], [address] Measurement, pHOrdered By: Hugo Tejeda on 09-07-2024 pH (Unsp spec) 7.38 [pH] 7.35-7.45 [facility] Microscopic analysis of urin e for red blood cells (RBC)Ordered By: Neo Tejeda on 09-07-2024 Microscopic analysis of urine for red blood cells (RBC) 0-5 SEEN /hpf 0-5 [facility] Mucus LM Ql (Urine sed)Order ed By: Neo Tejeda on 09-07-2024 Mucus Ql (Urine sed) 1+ /hpf [facility] Nitrite Test strip Ql (U)Ord ered By: Neo Tejeda on 09-07-2024 Nitrite Ql (U) Negative Negative [facility] No Panel InformationOrdered By: Neo Tejeda on 09-07-2024 Blood Gas Clinical Comments AIRVO 60L [facility] Blood Gas Sample Site R Radial [facility] Blood Gas Specimen Type ART [facility] Blood Gas Vent Mode Not entered [facility] Oxygen Delivery Device HFNC [facility] Partial Thromboplast Timeon 09-07-2024 aPTT Coag (Bld) [Time] 26.5 s Normal 24.1-36.2 [facility] Comment on above: Performed By: #### L 500.2500, L501.4020, L100.0100, L300.3900, L300.4310 ####[facility] [address] [place], [place], [id number] Protein Test strip Ql (U)Ord ered By: Neo Tejeda on 09-07-2024 Protein Ql (U) 30 mg/dl High Negative [facility] Prothrombin Time w/INRon INR Coag (PPP) [Relative time] 1.0 {INR} Normal [facility] Comment on above: Performed By: #### L 500.2500, L501.4020, L100.0100, L300.3900, L300.4310 ####[facility] [address] [place], [address] PT Coag (PPP) [Time] 13.6 s Normal 11.7-14.9 [facility] Comment on above: Performed By: #### L 500.2500, L501.4020, L100.0100, L300.3900, L300.4310 ####[facility] [address] [place], [address] Prothrombin timeOrdered By: Neo Tejeda on 09-07-2024 PT Coag (PPP) [Time] 13.6 s 11.7-14.9 [facility] RESPIRATORY PANEL MOLECULARo n 09-07-2024 RP PANEL [...] Not Detected RSV B Not Detected Normal [facility] Comment on above: Performed By: #### L 100.0100, L500.2500 #### [facility] Laboratory [address] [facility] [place], [address] Respiratory pathogens detect ion panel by molecular detection methodOrdered By: Jerrell Faith on 09-07-2024 Respiratory pathogens DNA and RNA panel CAMERON+probe (Resp) [facility] STROKE Brain/Head without Co nton 09-07-2024 STROKE Brain/Head without Cont [facility] Imaging Services [address] [place] [address] STROKE Brain/Head without Cont MR#: [id number] Acct: [id number] Name: CLARK LYLES Rep #: [id number] : 1935 M 88 From: Axel Marie MD PCP: CHRISTINE Brown Status: REG ER Study: STROKE Brain/Head without Cont Date of Exam: 0 09/07/24 Exam# [id number] Ordering Dr: Neo Tejeda DO EXAM: STROKE [...] the time of this dictation Reading Location: [facility] CC: Dr. Neo Tejeda DO; CHRISTINE Brown Medical Dosimetrist: Signed Normal [facility] Squamous epithelial cells de tection in urine sediment by light microscopyOrdered By: Neo Tejeda on 09-07-2024 Epithelial cells.squamous LM Ql (Urine sed) 0-5 SEEN /hpf 0-5 [facility] Total carbon dioxide measure mentOrdered By: Neo Tejeda on 09-07-2024 CO2 [Moles/Vol] 18 mmol/L [facility] Troponin IOrdered By: Jerrell Faith on 09-07-2024 Troponin I 68 pg/mL 3.0-78.0 [facility] Comment on above: Please Note: [place] t Units and Gender Specific Reference Ranges. For more information see Policy Stat Procedure [place] High Sensitivity Troponin (TNIH) and attachments. Urinalysis, Completeon 09-07 CA OX CRYSTAL 1+ /hpf Normal [facility] Comment on above: Order Comment: COLLE CTOR TO SPECIFY Performed By: #### L 100.0100, L500.2500 #### [facility] Laboratory [address] [place], [address] BACTERIA RARE Normal None Seen [facility] Comment on above: Order Comment: COLLE CTOR TO SPECIFY Performed By: #### L 100.0100, L500.2500 #### [facility] Laboratory [address] [place], [address] CAST,HYALINE 0-5 SEEN Normal 0-5 [facility] Comment on above: Order Comment: COLLE CTOR TO SPECIFY Performed By: #### L 100.0100, L500.2500 #### [facility] Laboratory [address] [place], [address] EPI,SQUAMOUS 0-5 SEEN Normal 0-5 [facility] Comment on above: Order Comment: COLLE CTOR TO SPECIFY Performed By: #### L 100.0100, L500.2500 #### [facility] Laboratory [address] [place], [address] Mucus Ql (Urine sed) 1+ /hpf Normal [facility] Comment on above: Order Comment: COLLE CTOR TO SPECIFY Performed By: #### L 100.0100, L500.2500 #### [facility] Laboratory [address] [place], [address] RBC 0-5 SEEN Normal 0-5 [facility] Comment on above: Order Comment: COLLE CTOR TO SPECIFY Performed By: #### L 100.0100, L500.2500 #### [facility] Laboratory [address] [place], [address] WBC 0-5 SEEN Normal 0-5 [facility] Comment on above: Order Comment: COLLE CTOR TO SPECIFY Performed By: #### L 100.0100, L500.2500 #### [facility] Laboratory [address] [place], [address] Urine clarityOrdered By: Ninoska Tejeda on 09-07-2024 Clarity (U) Clear Clear [facility] Urine color determinationOrd ered By: Neo Tejeda on 09-07-2024 Color (U) Yellow Yellow [facility] Urine glucose detectionOrder ed By: Neo Tejeda on 09-07-2024 Glucose Ql (U) Normal mg/dl Normal [facility] Urine leukocyte esterase det ection by dipstickOrdered By: Neo Tejeda on 09-07-2024 Leukocyte esterase Test strip Ql (U) Negative Negative [facility] Urine pHOrdered By: eNo escobedo on 09-07-2024 pH (U) 6.0 [pH] 5.0 - 8.0 [facility] Urine sediment bacteria coun t by microscopy (number/high power field)Ordered By: Neo Tejeda on 09-07-2024 Bacteria LM.HPF (Urine sed) [#/Area] RARE /hpf None Seen [facility] Urine specific gravity measu rementOrdered By: Neo Tejeda on 09-07-2024 Specific gravity (U) [Rel density] 1.010 1.002-1.03 0 [facility] Urine urobilinogen measureme ntOrdered By: Neo Tejeda on 09-07-2024 Urobilinogen Ql (U) Normal mg/dl Normal [facility] White blood cell countOrdere d By: Neo Tejeda on 09-07-2024 White blood cell count 0-5 SEEN /hpf 0-5 [facility] CNOVon 03-27-2024 CNOV Office Visit (FAMPWS ) CLARK LYLES ([id number]) 1935 M Date Time Provider Department 03/27/24 8:00 AM BRIGITTE SEGAL During your visit today, we recorded the following information about you: Pulse Respiration Blood pressure Weight 63/minute 16/minute 126/67 68.9 kg Brigitte Segal APRN.PASTRYCOOK 03/27/2024 8:28 AM Addendum This is a [...] lipoma performed by Dr. Robe Mackenzie at [facility] 03-18-14: REVSC OPN/PRQ FEM/POP W/STNT/ANGIOP SM [...] METOPROLOL SUCCINATE (more content not included)... Normal [facility] CLARK LYLES ([id number]) 1935 M Date Time Provider Department 02/26/24 BRIGITTE SEGAL [facility] During your visit today, we [...] Date Reviewed: 02/25/2024 Reviewed by: Brigitte Segal APRN.PASTRYCOOK - Fully Assessed Prescriptions as of 02/26/2024 [...] Meds Comments as of 04/18/2021: Taking Saw [place]. Problem List As Of Date 02/26/2024 Noted [...] chronic blood los*01/27/2020 Coronary artery disease involving solomon rabago*12/22/2020 S/P primary angioplasty with coronary stent [Z9*12/22/2020 Fall from standing [W19.XXXA] 09/20/2021 Encounter for support and coordination of trans*08/11/2023 Acute respiratory failure with hypoxia (HCC) [J*09/25/2023 Encounter Status:Closed by SHIRLEY RIVERA on 02/26/24 Normal [facility] Amylase SerPl-cCncon 024 Amylase [Catalytic activity/Vol] 52 U/L Normal 30-104 [facility] Comment on above: Order Comment: Speci men Type: BLOOD SPECIMENOrdering Facility: [facility] Address: [address] [place] [address] Performed By: #### 3 040-3, 1798-8, 88931-7 ####[facility] LABCLIA [id number] [place] [address] [place] CBC W Auto Differential pane l (Bld)on 02-25-2024 Basophils (Bld) [#/Vol] 0.04 10*3/uL Normal <0.11 [facility] Comment on above: Order Comment: Speci men Type: BLOOD SPECIMENOrdering Facility: [facility] Address: [address] [place] [address] Performed By: #### 5 7021-8 ####[facility] LABCLIA [id number] [place] [address] [place] Basophils/100 WBC (Bld) 0.4 % Normal [facility] Comment on above: Order Comment: Speci men Type: BLOOD SPECIMENOrdering Facility: [facility] Address: [address] [place] [address] Performed By: #### 5 7021-8 ####[facility] LABCLIA [id number] [place] [address] [place] Differential cell count method Nom (Bld) Auto Normal [facility] Comment on above: Order Comment: Speci men Type: BLOOD SPECIMENOrdering Facility: [facility] Address: [address] [place] [address] Performed By: #### 5 7021-8 ####[facility] LABCLIA [id number] [place] [address] [place] Eosinophils (Bld) [#/Vol] 0.31 10*3/uL Normal <0.46 [facility] Comment on above: Order Comment: Speci men Type: BLOOD SPECIMENOrdering Facility: [facility] Address: [address] [place] [address] Performed By: #### 5 7021-8 ####[facility] LABCLIA [id number] [place] [address] [place] Eosinophils/100 WBC (Bld) 2.9 % Normal [facility] Comment on above: Order Comment: Speci men Type: BLOOD SPECIMENOrdering Facility: [facility] Address: [address] [place] [address] Performed By: #### 5 7021-8 ####[facility] LABCLIA [id number] [place] [address] [place] Erythrocyte distribution width (RBC) [Ratio] 14.8 % Normal 11.5-15.0 [facility] Comment on above: Order Comment: Speci men Type: BLOOD SPECIMENOrdering Facility: [facility] Address: [address] [place] [address] Performed By: #### 5 7021-8 ####[facility] LABCLIA [id number] [place] [address] [place] Hematocrit (Bld) [Volume fraction] 50.9 % Normal 39.0-51.0 [facility] Comment on above: Order Comment: Speci men Type: BLOOD SPECIMENOrdering Facility: [facility] Address: [address] [place] [address] Performed By: #### 5 7021-8 ####[facility] LABCLIA [id number] [place] [address] [place] Hemoglobin (Bld) [Mass/Vol] 16.4 g/dL Normal 13.0-17.0 [facility] Comment on above: Order Comment: Speci men Type: BLOOD SPECIMENOrdering Facility: [facility] Address: [address] [place] [address] Performed By: #### 5 7021-8 ####[facility] LABCLIA [id number] [place] [address] [place] Immature granulocytes (Bld) [#/Vol] 0.08 10*3/uL Normal <0.10 [facility] Comment on above: Order Comment: Speci men Type: BLOOD SPECIMENOrdering Facility: [facility] Address: [address] [place] [address] Performed By: #### 5 7021-8 ####[facility] LABIA [id number] [place] [address] [place] Immature granulocytes/100 WBC (Bld) 0.7 % Normal [facility] Comment on above: Order Comment: Speci men Type: BLOOD SPECIMENOrdering Facility: [facility] Address: [address] [place] [address] Performed By: #### 5 7021-8 ####[facility] LABIA [id number] [place] [address] [place] Lymphocytes (Bld) [#/Vol] 0.73 10*3/uL Low 1.00-4.00 [facility] Comment on above: Order Comment: Speci men Type: BLOOD SPECIMENOrdering Facility: [facility] Address: [address] [place] [address] Performed By: #### 5 7021-8 ####[facility] LABCLIA [id number] [place] [address] [place] Lymphocytes/100 WBC (Bld) 6.7 % Normal [facility] Comment on above: Order Comment: Speci men Type: BLOOD SPECIMENOrdering Facility: [facility] Address: [address] [place] [address] Performed By: #### 5 7021-8 ####[facility] LABIA [id number] [place] [address] [place] MCH (RBC) [Entitic mass] 29.8 pg Normal 26.0-34.0 [facility] Comment on above: Order Comment: Speci men Type: BLOOD SPECIMENOrdering Facility: [facility] Address: [address] [place] [address] Performed By: #### 5 7021-8 ####[facility] LABIA [id number] [place] [address] [place] MCHC (RBC) [Mass/Vol] 32.2 g/dL Normal 30.5-36.0 [facility] Comment on above: Order Comment: Speci men Type: BLOOD SPECIMENOrdering Facility: [facility] Address: [address] [place] [address] Performed By: #### 5 7021-8 ####[facility] LABIA [id number] [place] [address] [place] MCV (RBC) [Entitic vol] 92.4 fL Normal 80.0-100.0 [facility] Comment on above: Order Comment: Speci men Type: BLOOD SPECIMENOrdering Facility: [facility] Address: [address] [place] [address] Performed By: #### 5 7021-8 ####[facility] LABIA [id number] [place] [address] [place] Monocytes (Bld) [#/Vol] 0.75 10*3/uL Normal <0.87 [facility] Comment on above: Order Comment: Speci men Type: BLOOD SPECIMENOrdering Facility: [facility] Address: [address] [place] [address] Performed By: #### 5 7021-8 ####[facility] LABCLIA [id number] [place] [address] [place] Monocytes/100 WBC (Bld) 6.9 % Normal [facility] Comment on above: Order Comment: Speci men Type: BLOOD SPECIMENOrdering Facility: [facility] Address: [address] [place] [address] Performed By: #### 5 7021-8 ####[facility] LABCLIA [id number] [place] [address] [place] Neutrophils (Bld) [#/Vol] 8.92 10*3/uL High 1.45-7.50 [facility] Comment on above: Order Comment: Speci men Type: BLOOD SPECIMENOrdering Facility: [facility] Address: [address] [place] [address] Performed By: #### 5 7021-8 ####[facility] LABCLIA [id number] [place] [address] [place] Neutrophils/100 WBC (Bld) 82.4 % Normal [facility] Comment on above: Order Comment: Speci men Type: BLOOD SPECIMENOrdering Facility: [facility] Address: [address] [place] [address] Performed By: #### 5 7021-8 ####[facility] LABCLIA [id number] [place] [address] [place] Nucleated RBC (Bld) [#/Vol] 10*3/uL Normal <0.01 [facility] Comment on above: Order Comment: Speci men Type: BLOOD SPECIMENOrdering Facility: [facility] Address: [address] [place] [address] Performed By: #### 5 7021-8 ####[facility] LABCLIA [id number] [place] [address] [place] Nucleated RBC/100 WBC (Bld) [Ratio] 0.0 /100 WBC Normal [facility] Comment on above: Order Comment: Speci men Type: BLOOD SPECIMENOrdering Facility: [facility] Address: [address] [place] [address] Performed By: #### 5 7021-8 ####[facility] LABCLIA [id number] [place] [address] [place] Platelet mean volume (Bld) [Entitic vol] 11.8 fL Normal 9.0-12.7 [facility] Comment on above: Order Comment: Speci men Type: BLOOD SPECIMENOrdering Facility: [facility] Address: [address] [place] [address] Performed By: #### 5 7021-8 ####[facility] LABCLIA [id number] [place] [address] [place] Platelets (Bld) [#/Vol] 234 10*3/uL Normal 150-400 [facility] Comment on above: Order Comment: Speci men Type: BLOOD SPECIMENOrdering Facility: [facility] Address: [address] [place] [address] Performed By: #### 5 7021-8 ####[facility] [facility] [id number] [place] [address] [place] RBC (Bld) [#/Vol] 5.51 10*6/uL Normal 4.20-6.00 [facility] Comment on above: Order Comment: Speci men Type: BLOOD SPECIMENOrdering Facility: [facility] Address: [address] [place] [address] Performed By: #### 5 7021-8 ####[facility] LABCLIA [id number] [place] [address] [place] WBC (Bld) [#/Vol] 10.83 10*3/uL Normal 3.70-11.00 [facility] Comment on above: Order Comment: Speci men Type: BLOOD SPECIMENOrdering Facility: [facility] Address: [address] [place] [address] Performed By: #### 5 7021-8 ####[facility] SUZANNE [id number] [place] [address] [place] CNOVon 02-25-2024 CNOV Office Visit (FAMPWS ) CLARK LYLES ([id number]) 1935 M Date Time Provider Department 02/25/24 8:20 AM [facility] During [facility] today, we recorded the following information about you: Pulse Respiration Blood pressure Weight 60/minute 16/minute 148/70 68.9 kg Brigitte Segal, COMPOUNDING SCALER.PASTRYCOOK 02/25/2024 8:51 AM Signed This is a [...] lipoma performed by Dr. Robe Mackenzie at [facility] REVSC OPN/PRQ FEM/POP W/STNT/ANGIOP SM VSL [...] SHUKRI.Pop Harden (more content not included)... Normal [facility] Comprehensive metabolic 2000 panelon 02-25-2024 Albumin [Mass/Vol] 4.4 g/dL Normal 3.9-4.9 [facility] Comment on above: Order Comment: Speci men Type: BLOOD SPECIMENOrdering Facility: [facility] Address: [address] [place] [address] Performed By: #### 3 040-3, 1798-8, 99652-0 ####[facility] LABCLIA [id number] [place] [address] [place] ALP [Catalytic activity/Vol] 57 U/L Normal 38-113 [facility] Comment on above: Order Comment: Speci men Type: BLOOD SPECIMENOrdering Facility: [facility] Address: [address] [place] [address] Performed By: #### 3 040-3, 1798-02, ####[facility] LABCLIA [id number] [address] [address] [place] ALT [Catalytic activity/Vol] 24 U/L Normal 10-54 [facility] Comment on above: Order Comment: Speci men Type: BLOOD SPECIMENOrdering Facility: [facility] Address: [address] [place] [address] Performed By: #### 3 040-3, 1798-02, ####[facility] LABCLIA [id number] [place] [address] [place] Anion gap [Moles/Vol] 12 mmol/L Normal 8-15 [facility] Comment on above: Order Comment: Speci men Type: BLOOD SPECIMENOrdering Facility: [facility] Address: [address] [place] [address] Performed By: #### 3 040-3, 1798-02, ####[facility] LABCLIA [id number] [place] [address] [place] AST [Catalytic activity/Vol] 28 U/L Normal 14-40 [facility] Comment on above: Order Comment: Speci men Type: BLOOD SPECIMENOrdering Facility: [facility] Address: [address] [place], [place] [address] Performed By: #### 3 040-3, 1798-02, ####[facility] LABCLIA [id number] [address] [address] [place] Bilirubin [Mass/Vol] 1.1 mg/dL Normal 0.2-1.3 [facility] Comment on above: Order Comment: Speci men Type: BLOOD SPECIMENOrdering Facility: [facility] Address: [address] [place], [place] [address] Performed By: #### 3 040-3, 1798-02, ####[facility] LABCLIA [id number] [address] [address] [place] Calcium [Mass/Vol] 9.7 mg/dL Normal 8.5-10.2 [facility] Comment on above: Order Comment: Speci men Type: BLOOD SPECIMENOrdering Facility: [facility] Address: [address] [place] [address] Performed By: #### 3 040-3, 1798-02, ####[facility] LABCLIA [id number] [place] [id number] [place] Chloride [Moles/Vol] 103 mmol/L Normal 98-107 [facility] Comment on above: Order Comment: Speci men Type: BLOOD SPECIMENOrdering Facility: [facility] Address: [address] [place] [address] Performed By: #### 3 040-3, 1798-02, ####[facility] LABCLIA [id number] [place] [address] [place] CO2 [Moles/Vol] 24 mmol/L Normal 22-30 [facility] Comment on above: Order Comment: Speci men Type: BLOOD SPECIMENOrdering Facility: [facility] Address: [address] [place] [address] Performed By: #### 3 040-3, 1798-02, ####[facility] LABCLIA [id number] [place] [id number] [place] Creatinine [Mass/Vol] 0.90 mg/dL Normal 0.73-1.22 [facility] Comment on above: Order Comment: Speci men Type: BLOOD SPECIMENOrdering Facility: [facility] Address: [address] [place] [address] Performed By: #### 3 040-3, 1798-02, ####[facility] LABCLIA [id number] [place] [id number] [place] Creatinine and Glomerular filtration rate.predicted panel (S/P/Bld) 83 mL/min/1.73m??? Normal >=60 [facility] Comment on above: Order Comment: Kailey simons Type: BLOOD SPECIMENOrdering Facility: [facility] Address: [address] [place] [address] Result Comment: Louann mated Glomerular Filtration Rate [...] GFR. Performed By: #### 3 040-3, 1798-02, ####[facility] LABCLIA [id number] [place] [address] [place] Glucose [Mass/Vol] 89 mg/dL Normal 74-99 [facility] Comment on above: Order Comment: Kailey simons Type: BLOOD SPECIMENOrdering Facility: [facility] Address: [address] [place] [address] Result Comment: The [place] Diabetes Association (ADA) provides guidance for cutoff [...] Standards of Medical Care in Diabetes 2016, [place] Diabetes Association. Diabetes Care. 2016.39(Suppl 1). Performed By: #### 3 040-3, 1798-02, ####[facility] LABIA [id number] [place] [id number] [place] Potassium [Moles/Vol] 4.4 mmol/L Normal 3.7-5.1 [facility] Comment on above: Order Comment: Speci men Type: BLOOD SPECIMENOrdering Facility: [facility] Address: [address] [place] [address] Performed By: #### 3 040-3, 1798-02, ####[facility] LABCLIA [id number] [place] [address] [place] Protein [Mass/Vol] 6.1 g/dL Low 6.3-8.0 [facility] Comment on above: Order Comment: Speci men Type: BLOOD SPECIMENOrdering Facility: [facility] Address: [address] [place] [address] Performed By: #### 3 040-3, 1798-02, ####[facility] LABCLIA [id number] [place] [address] [place] Sodium [Moles/Vol] 139 mmol/L Normal 136-144 [facility] Comment on above: Order Comment: Speci men Type: BLOOD SPECIMENOrdering Facility: [facility] Address: [address] [place] [address] Performed By: #### 3 040-3, 1798-02, ####[facility] LABCLIA [id number] [place] [address] [place] Urea nitrogen [Mass/Vol] 15 mg/dL Normal 9-24 [facility] Comment on above: Order Comment: Speci men Type: BLOOD SPECIMENOrdering Facility: [facility] Address: [address] [place] [address] Performed By: #### 3 040-3, 1798-02, ####[facility] LABCLIA [id number] [address] [address] [place] H. pylori IgG IA Qlon 2023 H. PYLORI IGG, QUAL Negative Normal Negative [facility] Comment on above: Order Comment: Kailey kristyn Type: BLOOD SPECIMENOrdering Facility: [facility] Address: [address] [place] [address] Result Comment: To ot exclude H. pylori infection if the specimen collected 3-4 weeks after onset of symptoms. Performed By: #### 1 7859-0 ####[facility] LABCLIA [id number] [place] [address] [place] Lipase SerPl-cCncon 02-25-20 24 Lipase [Catalytic activity/Vol] 41 U/L Normal 16-61 [facility] Comment on above: Order Comment: Georgehakan simons Type: BLOOD SPECIMENOrdering Facility: [facility] Address: [address] [place] [address] Performed By: #### 3 040-3, 1798-8, 29347-9 ####[facility] LABCLIA [id number] [address] [place] Cardiology Visit Reporton Cardiology Visit Report [facility] 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 Normal [facility] 12 Lead EKGon 02-09-2024 12 Lead EKG [facility] Cardi[facility] Services [address] [place] [address] 12 Lead EKG 02/09/24 0952 MR#: [id number] Acct: [id number] Name: CLARK LYLES Rep #: [id number] : 1935 88 From: Farrah Ruvalcaba MD [...] Normal ECG Confirmed by RITA MANUEL, YUAN ([id number]), editor continuity and script FARSHAD PANDYA ([id number]) on 02/13/2024 9:44:33 AM Referred By: AR Confirmed By:ABEL RUVALCABA MD 02/13/24 0944 Date Farrah Ruvalcaba MD CC: Dr. Tamra Ivey MD; CHRISTINE Brown Signed Normal [facility] BNP,B-Type NATRIURETIC PEPTI Giovanni 02-09-2024 Natriuretic peptide B (Bld) [Mass/Vol] 180.0 pg/mL High 0-100 [facility] Comment on above: Performed By: #### L 100.0100, L300.8000, L503.6620, L500.2500, L501.4020 ####[facility] [address] [place], [address] Basic Metabolic Profile (BMP )on 02-09-2024 BUN/CRE 13.1 RATIO Normal 10-20 [facility] Comment on above: Order Comment: 'TROP ' Serial specimen #1, #2 or #3: 1 Performed By: #### L 100.0100, L300.8000, L503.6620, L500.2500, L501.4020 ####[facility] [address] [place], [address] CA,Total 9.0 mg/dL Normal 8.5-10.1 [facility] Comment on above: Order Comment: 'TROP ' Serial specimen #1, #2 or #3: 1 Performed By: #### L 100.0100, L300.8000, L503.6620, L500.2500, L501.4020 ####[facility] [address] [place], [address] Chloride [Moles/Vol] 105 mmol/L Normal 98-107 [facility] Comment on above: Order Comment: 'TROP ' Serial specimen #1, #2 or #3: 1 Performed By: #### L 100.0100, L300.8000, L503.6620, L500.2500, L501.4020 ####[facility] [address] [place], [address] CO2 [Moles/Vol] 24.0 mmol/L Normal 21.0-32.0 [facility] Comment on above: Order Comment: 'TROP ' Serial specimen #1, #2 or #3: 1 Performed By: #### L 100.0100, L300.8000, L503.6620, L500.2500, L501.4020 ####[facility] [address] [place], [address] Creatinine [Mass/Vol] 0.92 mg/dL Normal 0.70-1.30 [facility] Comment on above: Order Comment: 'TROP ' Serial specimen #1, #2 or #3: 1 Result Comment: The validity of the calculated GFR GFRAA in patients over 70 years has not been determined. Clinical correlation is essential. Performed By: #### L 100.0100, L300.8000, L503.6620, L500.2500, L501.4020 ####[facility] [address] [place], [address] ECRCL 58.61 ml/min Normal [facility] Comment on above: Order Comment: 'TROP ' Serial specimen #1, #2 or #3: 1 Performed By: #### L 100.0100, L300.8000, L503.6620, L500.2500, L501.4020 ####[facility] [address] [place], [address] EST GFR - AA 100 mL/min Normal >60 [facility] Comment on above: Order Comment: 'TROP ' Serial specimen #1, #2 or #3: 1 Result Comment: Afri can [place] GFR Calc Performed By: #### L 100.0100, L300.8000, L503.6620, L500.2500, L501.4020 ####[facility] [address] [place], [address] GAP 7 Normal 5-15 [facility] Comment on above: Order Comment: 'TROP ' Serial specimen #1, #2 or #3: 1 Performed By: #### L 100.0100, L300.8000, L503.6620, L500.2500, L501.4020 ####[facility] [address] [place], [address] GFR/1.73 sq M.predicted among non-blacks MDRD (S/P/Bld) [Vol rate/Area] 83 mL/min/{1.73_m2} Normal >60 [facility] Comment on above: Order Comment: 'TROP ' Serial specimen #1, #2 or #3: 1 Result Comment: Non- GFR Calc Performed By: #### L 100.0100, L300.8000, L503.6620, L500.2500, L501.4020 ####[facility] [address] [place], [address] Glucose [Mass/Vol] 115 mg/dL High 74-106 [facility] Comment on above: Order Comment: 'TROP ' Serial specimen #1, #2 or #3: 1 Result Comment: Fast ing Glucose result from 100 to 125 mg/dL suggests IMPAIRED HOMEOSTASIS per A.D.A. criteria. Performed By: #### L 100.0100, L300.8000, L503.6620, L500.2500, L501.4020 ####[facility] [address] [place], [address] Potassium [Moles/Vol] 3.6 mmol/L Normal 3.5-5.1 [facility] Comment on above: Order Comment: 'TROP ' Serial specimen #1, #2 or #3: 1 Performed By: #### L 100.0100, L300.8000, L503.6620, L500.2500, L501.4020 ####[facility] [address] [place], [address] Sodium [Moles/Vol] 136 mmol/L Normal 136-145 [facility] Comment on above: Order Comment: 'TROP ' Serial specimen #1, #2 or #3: 1 Performed By: #### L 100.0100, L300.8000, L503.6620, L500.2500, L501.4020 ####[facility] [address] [place], [address] Urea nitrogen [Mass/Vol] 12 mg/dL Normal 7-18 [facility] Comment on above: Order Comment: 'TROP ' Serial specimen #1, #2 or #3: 1 Performed By: #### L 100.0100, L300.8000, L503.6620, L500.2500, L501.4020 ####[facility] [address] [place], [address] CBC W/Diff, Automatedon 07- Absolute Lymph 0.49 X10 3/uL Low 0.83-4.51 [facility] Comment on above: Performed By: #### L 100.0100, L300.8000, L503.6620, L500.2500, L501.4020 ####[facility] [address] [place], [address] Absolute Neut 7.0 X10 3/uL Normal 2.0-7.7 [facility] Comment on above: Performed By: #### L 100.0100, L300.8000, L503.6620, L500.2500, L501.4020 ####[facility] [address] [place], [address] Basophils/100 WBC (Bld) 0.2 % Normal 0-1 [facility] Comment on above: Performed By: #### L 100.0100, L300.8000, L503.6620, L500.2500, L501.4020 ####[facility] [address] [place], [address] Eosinophils/100 WBC (Bld) 1.4 % Normal 0-5 [facility] Comment on above: Performed By: #### L 100.0100, L300.8000, L503.6620, L500.2500, L501.4020 ####[facility] [address] [place], [address] Erythrocyte distribution width (RBC) [Ratio] 15.9 % High 11.6-14.6 [facility] Comment on above: Performed By: #### L 100.0100, L300.8000, L503.6620, L500.2500, L501.4020 ####[facility] [address] [place], [address] Hematocrit (Bld) [Volume fraction] 46.2 % Normal 40-54 [facility] Comment on above: Performed By: #### L 100.0100, L300.8000, L503.6620, L500.2500, L501.4020 ####[facility] [address] [place], [address] Hemoglobin (Bld) [Mass/Vol] 15.6 g/dL Normal 13.0-16.5 [facility] Comment on above: Performed By: #### L 100.0100, L300.8000, L503.6620, L500.2500, L501.4020 ####[facility] [address] [place], [address] IG% 1.000 High 0.0-0.9 [facility] Comment on above: Result Comment: IG% - Immature Granulocytes (promyelocytes, myelocytes and metamyelocytes) > 1% indicates that a LEFT SHIFT is Present. Performed By: #### L 100.0100, L300.8000, L503.6620, L500.2500, L501.4020 ####[facility] [address] [place], [address] Lymphocytes/100 WBC (Bld) 5.8 % Low 19-41 [facility] Comment on above: Performed By: #### L 100.0100, L300.8000, L503.6620, L500.2500, L501.4020 ####[facility] [address] [place], [address] MCH (RBC) [Entitic mass] 30.8 pg Normal 27.0-32.0 [facility] Comment on above: Performed By: #### L 100.0100, L300.8000, L503.6620, L500.2500, L501.4020 ####[facility] [address] [place], [address] MCHC (RBC) [Mass/Vol] 33.8 g/dL Normal 32-36 [facility] Comment on above: Performed By: #### L 100.0100, L300.8000, L503.6620, L500.2500, L501.4020 ####[facility] [address] [place], [address] MCV (RBC) [Entitic vol] 91.1 fL Normal 80-94 [facility] Comment on above: Performed By: #### L 100.0100, L300.8000, L503.6620, L500.2500, L501.4020 ####[facility] [address] [place], [address] Monocytes/100 WBC (Bld) 8.1 % Normal 0-10 [facility] Comment on above: Performed By: #### L 100.0100, L300.8000, L503.6620, L500.2500, L501.4020 ####[facility] [address] [place], [address] Neutrophils/100 WBC (Bld) 83.5 % High 47-70 [facility] Comment on above: Performed By: #### L 100.0100, L300.8000, L503.6620, L500.2500, L501.4020 ####[facility] [address] [place], [address] Nucleated RBC (Bld) [#/Vol] 0 10*3/uL Normal 0-5 [facility] Comment on above: Performed By: #### L 100.0100, L300.8000, L503.6620, L500.2500, L501.4020 ####[facility] [address] [place], [address] Platelet mean volume (Bld) [Entitic vol] 10.8 fL Normal 6.2-12.0 [facility] Comment on above: Performed By: #### L 100.0100, L300.8000, L503.6620, L500.2500, L501.4020 ####[facility] [address] [place], [address] Platelets (Bld) [#/Vol] 264 10*3/uL Normal 150-450 [facility] Comment on above: Performed By: #### L 100.0100, L300.8000, L503.6620, L500.2500, L501.4020 ####[facility] [address] [place], [address] RBC (Bld) [#/Vol] 5.07 10*6/uL Normal 4.6-6.2 [facility] Comment on above: Performed By: #### L 100.0100, L300.8000, L503.6620, L500.2500, L501.4020 ####[facility] [address] [place], [address] RDW SD 53.1 fl High 35.1-43.9 [facility] Comment on above: Performed By: #### L 100.0100, L300.8000, L503.6620, L500.2500, L501.4020 ####[facility] [address] [place], [address] WBC (Bld) [#/Vol] 8.4 10*3/uL Normal 4.4-11.0 [facility] Comment on above: Performed By: #### L 100.0100, L300.8000, L503.6620, L500.2500, L501.4020 ####[facility] [address] [place], [address] Chest PA and Lateralon 02-08 Chest PA and Lateral [facility] Imaging Services [address] [place] [address] Chest PA and Lateral MR#: [id number] Acct: [id number] Name: TRUPTICLARK LAMA Rep #: [id number] : 1935 M 88 From: Yana Sampson MD PCP: CHRISTINE Brown Status: [facility] ER Study: Chest PA and Lateral Date of Exam: 02/09/24 Exam# [id number] Ordering Dr: Tamra Ivey MD [id number] INDICATION: Shortness of breath EXAMINATION/TECHNIQUE: X-RAY - [...] CC: Dr. Tamra Ivey MD; CHRISTINE Brown Medical Dosimetrist: Signed Normal [facility] D-Dimer Quantitative (DVT/PE )on 02-09-2024 D-DIMER QUANT 0.34 FEU/ug/m Normal 0.27-0.49 [facility] Comment on above: Result Comment: NORM AL D-Dimer level (<0.50) indicates no DVT or PE. Performed By: #### L 100.0100, L300.8000, L503.6620, L500.2500, L501.4020 ####[facility] [address] [facility] [place], [address] Emergency Department Summary on 02-09-2024 Emergency Department Summary [facility] Medical Records Department [address] [place] [address] Emergency Department Summary 02/09/24 MR#: [id number] Acct: [id number] Name: CLARK LYLES Rep #: [id number] : 1935 88 From: Tamra Ivey MD [...] CHF. He has not noted peripheral swelling. [facility] Medical History COVID-19 virus detected (08/23/20) Anxiety and depression Chronic anemia Acute respiratory failure with hypoxia Hypoxia Pneumonia due to COVID-19 virus GI bleed (12/2019) Atherosclerosis of coronary artery of solomon heart without angina pectoris Peripheral vascular occlusive [...] Neurologic Neurologi (more content not included)... Normal [facility] L501.4020on 02-09-2024 TROPONIN-I HS 7 pg/mL Normal 3.0-78.0 [facility] Comment on above: Order Comment: 'TROP ' Serial specimen #1, #2 or #3: 1 Result Comment: Peg jiménez Note: New Test Units and Gender Specific Reference Ranges. For more information see Policy Stat Procedure [place] High Sensitivity Troponin (TNIH) and attachments. Performed By: #### L 100.0100, L300.8000, L503.6620, L500.2500, L501.4020 ####[facility] [address] [place], [address] [facility] CLARK LYLES ([id number]) 1935 M Date Time Provider Department 12/28/23 WALTER GOMEZ [facility] During your visit today, we [...] daily Meds Comments as of 04/18/2021: Taking FiveCubits. Problem List As Of Date 12/28/2023 Noted Resolved BENIGN HYPERTENSION [I10] 01/08/2006 Anxiety state [F41.1] 01/05/2009 GERD (gastroesophageal reflux disease) [K21.9] 01/10/2011 BPH (benign prostatic hyperplasia) [N40.0] 03/17/2013 PAD (peripheral artery disease) ([facility]) [I73.9] 02/28/2014 Hyperlipidemia LDL goal <100 [E78.5] 03/28/2016 Hyperbilirubinemia [E80.6] 05/10/2016 Parkinson's disease (HCC) [G20.A1] 07/11/2017 Angina pectoris (HCC) [I20.9] 08/25/2019 Restless legs syndrome [G25.81] 01/27/2020 Iron deficiency anemia due to chronic blood los*01/27/2020 Coronary artery disease involving solomon rabago*12/22/2020 S/P primary angioplasty with coronary stent [Z9*12/22/2020 Fall from standing [W19.XXXA] 09/20/2021 Encounter for support and coordination of trans*08/11/2023 Acute respiratory failure with hypoxia (HCC) [J*09/25/2023 Letter Text Encounter Status:Closed by SHIRLEY RIVERA on 01/04/24 Normal [facility] CBC W Auto Differential pane l (Bld)on 12-27-2023 Basophils (Bld) [#/Vol] 0.04 10*3/uL Normal <0.11 [facility] Comment on above: Order Comment: Speci men Type: BLOOD SPECIMENOrdering Facility: [facility] Address: [address] [place] [address] Performed By: #### 5 7021-8 ####[facility] LABCLIA [id number] [place] [address] [place] Basophils/100 WBC (Bld) 0.5 % Normal [facility] Comment on above: Order Comment: Speci men Type: BLOOD SPECIMENOrdering Facility: [facility] Address: [address] [place] [address] Performed By: #### 5 7021-8 ####[facility] LABCLIA [id number] [place] [address] [place] Differential cell count method Nom (Bld) Auto Normal [facility] Comment on above: Order Comment: Speci men Type: BLOOD SPECIMENOrdering Facility: [facility] Address: [address] [place] [address] Performed By: #### 5 7021-8 ####[facility] LABCLIA [id number] [place] [address] [place] Eosinophils (Bld) [#/Vol] 0.36 10*3/uL Normal <0.46 [facility] Comment on above: Order Comment: Speci men Type: BLOOD SPECIMENOrdering Facility: [facility] Address: [address] [place] [address] Performed By: #### 5 7021-8 ####[facility] LABIA [id number] [place] [address] [place] Eosinophils/100 WBC (Bld) 4.5 % Normal [facility] Comment on above: Order Comment: Speci men Type: BLOOD SPECIMENOrdering Facility: [facility] Address: [address] [place] [address] Performed By: #### 5 7021-8 ####[facility] LABIA [id number] [place] [address] [place] Erythrocyte distribution width (RBC) [Ratio] 16.4 % High 11.5-15.0 [facility] Comment on above: Order Comment: Speci men Type: BLOOD SPECIMENOrdering Facility: [facility] Address: [address] [place] [address] Performed By: #### 5 7021-8 ####[facility] LABIA [id number] [place] [address] [place] Hematocrit (Bld) [Volume fraction] 47.6 % Normal 39.0-51.0 [facility] Comment on above: Order Comment: Speci men Type: BLOOD SPECIMENOrdering Facility: [facility] Address: [address] [place] [address] Performed By: #### 5 7021-8 ####[facility] LABIA [id number] [place] [address] [place] Hemoglobin (Bld) [Mass/Vol] 15.7 g/dL Normal 13.0-17.0 [facility] Comment on above: Order Comment: Speci men Type: BLOOD SPECIMENOrdering Facility: [facility] Address: [address] [place] [address] Performed By: #### 5 7021-8 ####[facility] LABCLIA [id number] [place] [address] [place] Immature granulocytes (Bld) [#/Vol] 0.07 10*3/uL Normal <0.10 [facility] Comment on above: Order Comment: Speci men Type: BLOOD SPECIMENOrdering Facility: [facility] Address: [address] [place] [address] Performed By: #### 5 7021-8 ####[facility] LABCLIA [id number] [place] [address] [place] Immature granulocytes/100 WBC (Bld) 0.9 % Normal [facility] Comment on above: Order Comment: Speci men Type: BLOOD SPECIMENOrdering Facility: [facility] Address: [address] [place] [address] Performed By: #### 5 7021-8 ####[facility] LABIA [id number] [place] [address] [place] Lymphocytes (Bld) [#/Vol] 0.72 10*3/uL Low 1.00-4.00 [facility] Comment on above: Order Comment: Speci men Type: BLOOD SPECIMENOrdering Facility: [facility] Address: [address] [place] [address] Performed By: #### 5 7021-8 ####[facility] LABIA [id number] [place] [address] [place] Lymphocytes/100 WBC (Bld) 8.9 % Normal [facility] Comment on above: Order Comment: Speci men Type: BLOOD SPECIMENOrdering Facility: [facility] Address: [address] [place] [address] Performed By: #### 5 7021-8 ####[facility] LABIA [id number] [place] [address] [place] MCH (RBC) [Entitic mass] 30.5 pg Normal 26.0-34.0 [facility] Comment on above: Order Comment: Speci men Type: BLOOD SPECIMENOrdering Facility: [facility] Address: [address] [place] [address] Performed By: #### 5 7021-8 ####[facility] LABCLIA [id number] [place] [address] [place] MCHC (RBC) [Mass/Vol] 33.0 g/dL Normal 30.5-36.0 [facility] Comment on above: Order Comment: Speci men Type: BLOOD SPECIMENOrdering Facility: [facility] Address: [address] [place] [address] Performed By: #### 5 7021-8 ####[facility] LABIA [id number] [place] [address] [place] MCV (RBC) [Entitic vol] 92.6 fL Normal 80.0-100.0 [facility] Comment on above: Order Comment: Speci men Type: BLOOD SPECIMENOrdering Facility: [facility] Address: [address] [place] [address] Performed By: #### 5 7021-8 ####[facility] LABIA [id number] [place] [address] [place] Monocytes (Bld) [#/Vol] 0.84 10*3/uL Normal <0.87 [facility] Comment on above: Order Comment: Speci men Type: BLOOD SPECIMENOrdering Facility: [facility] Address: [address] [place] [address] Performed By: #### 5 7021-8 ####[facility] LABIA [id number] [place] [address] [place] Monocytes/100 WBC (Bld) 10.4 % Normal [facility] Comment on above: Order Comment: Speci men Type: BLOOD SPECIMENOrdering Facility: [facility] Address: [address] [place] [address] Performed By: #### 5 7021-8 ####[facility] LABCLIA [id number] [place] [address] [place] Neutrophils (Bld) [#/Vol] 6.02 10*3/uL Normal 1.45-7.50 [facility] Comment on above: Order Comment: Speci men Type: BLOOD SPECIMENOrdering Facility: [facility] Address: [address] [place] [address] Performed By: #### 5 7021-8 ####[facility] LABCLIA [id number] [place] [address] [place] Neutrophils/100 WBC (Bld) 74.8 % Normal [facility] Comment on above: Order Comment: Speci men Type: BLOOD SPECIMENOrdering Facility: [facility] Address: [address] [place] [address] Performed By: #### 5 7021-8 ####[facility] LABCLIA [id number] [place] [address] [place] Nucleated RBC (Bld) [#/Vol] 10*3/uL Normal <0.01 [facility] Comment on above: Order Comment: Speci men Type: BLOOD SPECIMENOrdering Facility: [facility] Address: [address] [place] [address] Performed By: #### 5 7021-8 ####[facility] LABCLIA [id number] [place] [address] [place] Nucleated RBC/100 WBC (Bld) [Ratio] 0.0 /100 WBC Normal [facility] Comment on above: Order Comment: Speci men Type: BLOOD SPECIMENOrdering Facility: [facility] Address: [address] [place] [address] Performed By: #### 5 7021-8 ####[facility] LABCLIA [id number] [place] [address] [place] Platelet mean volume (Bld) [Entitic vol] 11.6 fL Normal 9.0-12.7 [facility] Comment on above: Order Comment: Speci men Type: BLOOD SPECIMENOrdering Facility: [facility] Address: [address] [place] [address] Performed By: #### 5 7021-8 ####[facility] LABCLIA [id number] [place] [address] [place] Platelets (Bld) [#/Vol] 209 10*3/uL Normal 150-400 [facility] Comment on above: Order Comment: Speci men Type: BLOOD SPECIMENOrdering Facility: [facility] Address: [address] [place] [address] Performed By: #### 5 7021-8 ####[facility] LABCLIA [id number] [place] [address] [place] RBC (Bld) [#/Vol] 5.14 10*6/uL Normal 4.20-6.00 [facility] Comment on above: Order Comment: Speci men Type: BLOOD SPECIMENOrdering Facility: [facility] Address: [address] [place] [address] Performed By: #### 5 7021-8 ####[facility] LABCLIA [id number] [place] [address] [place] WBC (Bld) [#/Vol] 8.05 10*3/uL Normal 3.70-11.00 [facility] Comment on above: Order Comment: Speci men Type: BLOOD SPECIMENOrdering Facility: [facility] Address: [address] [place] [address] Performed By: #### 5 7021-8 ####[facility] LABCLIA [id number] [place] [address] [place] Comprehensive metabolic 2000 panelon 12-27-2023 Albumin [Mass/Vol] 4.3 g/dL Normal 3.9-4.9 [facility] Comment on above: Order Comment: Speci men Type: BLOOD SPECIMENOrdering Facility: [facility] Address: [address] [place] [address] Performed By: #### 2 4323-8, , ####[facility] LABCLIA [id number] [place] [address] [place] ALP [Catalytic activity/Vol] 57 U/L Normal 38-113 [facility] Comment on above: Order Comment: Speci men Type: BLOOD SPECIMENOrdering Facility: [facility] Address: [address] [place] [address] Performed By: #### 2 4323-8, , ####[facility] LABCLIA [id number] [place] [address] [place] ALT [Catalytic activity/Vol] 15 U/L Normal 10-54 [facility] Comment on above: Order Comment: Speci men Type: BLOOD SPECIMENOrdering Facility: [facility] Address: [address] [place] [address] Performed By: #### 2 4323-8, , ####[facility] LABIA [id number] [place] [address] [place] Anion gap [Moles/Vol] 13 mmol/L Normal 9-18 [facility] Comment on above: Order Comment: Speci men Type: BLOOD SPECIMENOrdering Facility: [facility] Address: [address] [place] [address] Performed By: #### 2 4323-8, , ####[facility] LABIA [id number] [place] [address] [place] AST [Catalytic activity/Vol] 19 U/L Normal 14-40 [facility] Comment on above: Order Comment: Speci men Type: BLOOD SPECIMENOrdering Facility: [facility] Address: [address] [place], [place] [address] Performed By: #### 2 4323-8, , ####[facility] LABCLIA [id number] [address] [address] [place] Bilirubin [Mass/Vol] 1.3 mg/dL Normal 0.2-1.3 [facility] Comment on above: Order Comment: Speci men Type: BLOOD SPECIMENOrdering Facility: [facility] Address: [address] [place] [address] Performed By: #### 2 4323-8, , ####[facility] LABCLIA [id number] [place] [address] [place] Calcium [Mass/Vol] 9.0 mg/dL Normal 8.5-10.2 [facility] Comment on above: Order Comment: Speci men Type: BLOOD SPECIMENOrdering Facility: [facility] Address: [address] [place] [address] Performed By: #### 2 4323-8, , ####[facility] LABIA [id number] [place] [address] [place] Chloride [Moles/Vol] 106 mmol/L High 97-105 [facility] Comment on above: Order Comment: Speci men Type: BLOOD SPECIMENOrdering Facility: [facility] Address: [address] [place], [place] [address] Performed By: #### 2 4323-8, , ####[facility] LABCLIA [id number] [place] [id number] [place] CO2 [Moles/Vol] 23 mmol/L Normal 22-30 [facility] Comment on above: Order Comment: Speci men Type: BLOOD SPECIMENOrdering Facility: [facility] Address: [address] [place], [place] [address] Performed By: #### 2 4323-8, , ####[facility] LABCLIA [id number] [place] [id number] [place] Creatinine [Mass/Vol] 1.00 mg/dL Normal 0.73-1.22 [facility] Comment on above: Order Comment: Speci men Type: BLOOD SPECIMENOrdering Facility: [facility] Address: [address] [place] [address] Performed By: #### 2 4323-8, , ####[facility] LABIA [id number] [place] [address] [place] Creatinine and Glomerular filtration rate.predicted panel (S/P/Bld) 73 mL/min/1.73m??? Normal >=60 [facility] Comment on above: Order Comment: Kailey simons Type: BLOOD SPECIMENOrdering Facility: [facility] Address: [address] [place] [address] Result Comment: Louann mated Glomerular Filtration Rate [...] GFR. Performed By: #### 2 4323-8, , ####[facility] LABIA [id number] [place] [id number] [place] Glucose [Mass/Vol] 93 mg/dL Normal 74-99 [facility] Comment on above: Order Comment: Speci men Type: BLOOD SPECIMENOrdering Facility: [facility] Address: [address] [place] [address] Result Comment: The [place] Diabetes Association (ADA) provides guidance for cutoff [...] Standards of Medical Care in Diabetes 2016, [place] [employer]. Diabetes Care. 2016.39(Suppl 1). Performed By: #### 2 4323-8, , ####[facility] LABCLIA [id number] [address] [address] [place] Potassium [Moles/Vol] 4.0 mmol/L Normal 3.7-5.1 [facility] Comment on above: Order Comment: Speci men Type: BLOOD SPECIMENOrdering Facility: [facility] Address: [address] [place] [address] Performed By: #### 2 4323-8, , ####[facility] LABCLIA [id number] [place] [address] [place] Protein [Mass/Vol] 6.0 g/dL Low 6.3-8.0 [facility] Comment on above: Order Comment: Speci men Type: BLOOD SPECIMENOrdering Facility: [facility] Address: [address] [place] [address] Performed By: #### 2 4323-8, , ####[facility] LABCLIA [id number] [address] [address] [place] Sodium [Moles/Vol] 142 mmol/L Normal 136-144 [facility] Comment on above: Order Comment: Speci men Type: BLOOD SPECIMENOrdering Facility: [facility] Address: [address] [place] [address] Performed By: #### 2 4323-8, , ####[facility] LABCLIA [id number] [place] [address] [place] Urea nitrogen [Mass/Vol] 15 mg/dL Normal 9-24 [facility] Comment on above: Order Comment: Speci men Type: BLOOD SPECIMENOrdering Facility: [facility] Address: [address] [place] [address] Performed By: #### 2 4323-8, 91023-7, 30590-8 ####[facility] LABCLIA [id number] [place] [address] [place] Lipid 1996 panelon 4 Cholesterol [Mass/Vol] 131 mg/dL Normal <200 [facility] Comment on above: Order Comment: Speci men Type: BLOOD SPECIMENOrdering Facility: [facility] Address: [address] [place] [address] Result Comment: <200 mg/dL, Desirable 200-239 mg/dL, Borderline high >239 mg/dL, High Performed By: #### 2 4323-8, , 10241-2 ####[facility] LABCLIA [id number] [place] [address] [place] Cholesterol in HDL [Mass/Vol] 38 mg/dL Low >39 [facility] Comment on above: Order Comment: Speci men Type: BLOOD SPECIMENOrdering Facility: [facility] Address: [address] [place] [address] Result Comment: 40-5 9 mg/dL, Acceptable >59 mg/dL, High: Negative risk factor for coronary heart disease <40 mg/dL, Low: Positive risk factor for coronary heart disease Performed By: #### 2 4323-8, 75722-5, 45567-9 ####[facility] LABCLIA [id number] [address] [place] Cholesterol in LDL [Mass/Vol] 75 mg/dL Normal <100 [facility] Comment on above: Order Comment: Speci men Type: BLOOD SPECIMENOrdering Facility: [facility] Address: [address] [place] [address] Result Comment: <100 mg/dL, Optimal 100-129 mg/dL, Near optimal/above optimal 130-159 mg/dL, Borderline high 160-189 mg/dL, High >189 mg/dL, Very high Secondary prevention optimal LDL Cholesterol levels are recommended to be < 70 mg/dL Performed By: #### 2 4323-8, 54084-0, 74298-1 ####[facility] LABCLIA [id number] [place] [address] [place] Cholesterol in LDL/Cholesterol in HDL [Mass ratio] 1.97 {ratio} Normal <2.54 [facility] Comment on above: Order Comment: Kailey men Type: BLOOD SPECIMENOrdering Facility: [facility] Address: [address] [place] [address] Result Comment: Refe rence: 1. National Cholesterol Education Program ATP III Guideline At-A-Glance Quick Desk Reference: National Heart, Lung, and Blood Susan. National Institutes of Health. 2001: NIH Publication No. 01-3305. 2. An International Atherosclerosis Society position paper: global recommendations for the management of dyslipidemia: executive summary, Atherosclerosis. 2014: 232(2):410-413. Performed By: #### 2 4323-8, , ####[facility] LABCLIA [id number] [place] [address] [place] Cholesterol in VLDL [Mass/Vol] 18 mg/dL Normal <30 [facility] Comment on above: Order Comment: Kailey men Type: BLOOD SPECIMENOrdering Facility: [facility] Address: [address] [place] [address] Performed By: #### 2 4323-8, , ####[facility] LABCLIA [id number] [address] [address] [place] Cholesterol non HDL [Mass/Vol] 93 mg/dL Normal <130 [facility] Comment on above: Order Comment: Kailey men Type: BLOOD SPECIMENOrdering Facility: [facility] Address: [address] [place] [address] Result Comment: <130 mg/dL, Optimal 130-159 mg/dL, Near optimal/above optimal 160-189 mg/dL, Borderline high 190-219 mg/dL, High >219 mg/dL, Very high Secondary prevention optimal non HDL Cholesterol levels are recommended to be <100 mg/dL Performed By: #### 2 4323-8, 29653-0, 06765-3 ####[facility] LABCLIA [id number] [place] [address] [place] Cholesterol.total/Chol esterol in HDL [Mass ratio] 3.45 {ratio} Normal <5.10 [facility] Comment on above: Order Comment: Speci men Type: BLOOD SPECIMENOrdering Facility: [facility] Address: [address] [place] [address] Performed By: #### 2 4323-8, , ####[facility] LABCLIA [id number] [place] [address] [place] FASTING TIME 12 hrs Normal [facility] Comment on above: Order Comment: Speci men Type: BLOOD SPECIMENOrdering Facility: [facility] Address: [address] [place] [address] Performed By: #### 2 4323-8, , ####[facility] LABCLIA [id number] [place] [address] [place] Triglyceride [Mass/Vol] 91 mg/dL Normal <150 [facility] Comment on above: Order Comment: Speci men Type: BLOOD SPECIMENOrdering Facility: [facility] Address: [address] [place] [address] Result Comment: <150 mg/dL, Normal 150-199 mg/dL, Borderline high 200-499 mg/dL, High >499 mg/dL, Very high Performed By: #### 2 4323-8, , 99245-6 ####[facility] LABCLIA [id number] [place] [id number] [place] Magnesium SerPl-mCncon 12-26 Magnesium [Mass/Vol] 2.1 mg/dL Normal 1.7-2.3 [facility] Comment on above: Order Comment: Speci men Type: BLOOD SPECIMENOrdering Facility: [facility] Address: [address] [place] [address] Performed By: #### 2 4323-8, 89817-2, 34560-9 ####[facility] LABCLIA [id number] [place] [address] [place] CNOVon 12-25-2023 CNOV Office Visit (TRUDY ) CLARK LYLES ([id number]) 1935 M Date Time Provider Department 12/25/23 9:00 AM Radha DURBIN During your visit today, we recorded the following information about you: Pulse Respiration Blood pressure Weight 61/minute 16/minute 120/68 72.1 kg Radha Durbin PA-C 12/26/2023 2:22 PM Signed 88 year old male with c/o here for follow up. 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 08/02/2023 echocardiogram [facility]: LV size WNL, mild concentric LVH, EF [...] to suggest ischemia. 02/08/2022 last cardiology visit [place]: [employer] feels he is doing well and stable. [...] Lymph 1.00 - 4.00 k/uL 0.81 (L) [place]% % 9.0 Abs [place] <0.87 k/uL 0.99 (H) Eosin% % 2.6 [...] Ratio <5.10 (more content not included)... Normal [facility] Absolute lymphocyte countOrd ered By: Jerrell Faith on 08-04-2023 Lymphocytes Auto (Unsp spec) [#/Vol] 0.71 10*3/uL 0.83-4.51 [facility] Basophil percentageOrdered B y: Jerrell Faith on 08-04-2023 Basophils/100 WBC (Bld) 0.4 % 0-1 [facility] Chloride [Moles/Vol] 113 mmol/L 98-107 [facility] Eosinophils/100 WBC (Bld) 4.1 % 0-5 [facility] Glucose [Mass/Vol] 96 mg/dL 74-106 [facility] Neutrophils (Bld) [#/Vol] 6.1 10*3/uL 2.0-7.7 [facility] Neutrophils/100 WBC (Bld) 76.4 % 47-70 [facility] Potassium [Moles/Vol] 4.1 mmol/L 3.5-5.1 [facility] Sodium [Moles/Vol] 141 mmol/L 136-145 [facility] WBC (Bld) [#/Vol] 8.0 10*3/uL 4.4-11.0 [facility] Blood erythrocytes count (nu mber/volume)Ordered By: Jerrell Faith on 08-04-2023 RBC (Bld) [#/Vol] 4.52 10*6/uL 4.6-6.2 [facility] Blood hemoglobin measurement (mass/volume)Ordered By: Jerrell Faith on 08-04-2023 Hemoglobin (Bld) [Mass/Vol] 13.4 g/dL 13.0-16.5 [facility] Blood lymphocytes/100 leukoc ytesOrdered By: Jerrell Faith on 08-04-2023 Lymphocytes/100 WBC (Bld) 8.9 % 19-41 [facility] Blood monocytes/100 leukocyt esOrdered By: Jerrell Faith on 08-04-2023 Monocytes/100 WBC (Bld) 9.4 % 0-10 [facility] Blood platelet mean volumeOr dered By: Jerrell Faith on 08-04-2023 Platelet mean volume (Bld) [Entitic vol] 10.7 fL 6.2-12.0 [facility] Determination of erythrocyte mean corpuscular volume (MCV)Ordered By: Jerrell Faith on 08-04-2023 MCV (RBC) [Entitic vol] 92.3 fL 80-94 [facility] Hematocrit Auto (Bld) [Volum e fraction]Ordered By: Jerrell Faith on 08-04-2023 Hematocrit (Bld) [Volume fraction] 41.7 % 40-54 [facility] Laboratory - Chemistry and C hemistry - challengeOrdered By: Jerrell Faith on 08-04-2023 CO2 [Moles/Vol] 25.0 mmol/L 21.0-32.0 [facility] Urea nitrogen/Creatinine [Mass ratio] 22.1 mg/mg 10-20 [facility] Laboratory - Hematology and Cell countsOrdered By: Jerrell Faith on 08-04-2023 Erythrocyte distribution width (RBC) [Entitic vol] 49.3 fL 35.1-43.9 [facility] Erythrocyte distribution width (RBC) [Ratio] 14.6 % 11.6-14.6 [facility] Immature granulocytes/100 WBC (Bld) 0.800 % 0.0-0.9 [facility] Comment on above: IG% - Immature Granu locytes (promyelocytes, myelocytes and metamyelocytes) > 1% indicates that a LEFT SHIFT is Present. MCH (RBC) [Entitic mass] 29.6 pg 27.0-32.0 [facility] Nucleated RBC/100 WBC (Bld) [Ratio] 0 % 0-5 [facility] MCHC Auto (RBC) [Mass/Vol]Or dered By: Jerrell Faith on 08-04-2023 MCHC (RBC) [Mass/Vol] 32.1 g/dL 32-36 [facility] No Panel InformationOrdered By: Jerrell Faith on 08-04-2023 Estimated Creatinine Clearance Calc 66.51 ml/min [facility] Estimated GFR (MDRD) Amer 115 mL/min >60 [facility] Comment on above: GFR Calc Estimated GFR (MDRD) Non-Af Amer 95 mL/min >60 [facility] Comment on above: Non- GFR Calc Platelets bldOrdered By: Ismael Faith on 08-04-2023 Platelets (Bld) [#/Vol] 186 10*3/uL 150-450 [facility] Serum or plasma calcium nichole urement (mass/volume)Ordered By: Jerrell Faith on 08-04-2023 Calcium [Mass/Vol] 8.9 mg/dL 8.5-10.1 [facility] Serum or plasma creatinine m easurement (mass/volume)Ordered By: Jerrell Faith on 08-04-2023 Creatinine [Mass/Vol] 0.82 mg/dL 0.70-1.30 [facility] Comment on above: The validity of the calculated GFR & GFRAA in patients over 70 years has not been determined. Clinical correlation is essential. Serum or plasma urea nitroge n measurement (mass/volume)Ordered By: Jerrell Faith on 08-04-2023 Urea nitrogen [Mass/Vol] 18 mg/dL 7-18 [facility] Thin prep Papanicolaou smear with manual screeningOrdered By: Jerrell Faith on 08-04-2023 Thin prep Papanicolaou smear with manual screening 3 5-15 [facility] Basophil percentageOrdered B y: Jerrell Faith on 08-03-2023 Basophil percentage 2.1 mg/dL 2.5-4.9 [facility] Bilirubin [Mass/Vol] 0.30 mg/dL 0.20-1.00 [facility] Comment on above: For patients on eltr ombopag therapy, use of Dimension [place] TBIL is not recommended. Protein [Mass/Vol] 5.6 g/dL 6.4-8.2 [facility] Clostridium difficile detect ion by polymerase chain reactionOrdered By: Jerrell Faith on 08-03-2023 C. difficile DNA CAMERON+probe Ql (Unsp spec) [facility] Laboratory - Chemistry and C hemistry - challengeOrdered By: Jerrell Faith on 08-03-2023 ALP [Catalytic activity/Vol] 46 U/L 45-117 [facility] ALT [Catalytic activity/Vol] 18 U/L 16-61 [facility] Globulin (S) [Mass/Vol] 2.6 g/dL 2.2-4.2 [facility] Magnesium [Mass/Vol] 1.9 mg/dL 1.6-2.6 [facility] Serum or plasma albumin nichole urement (mass/volume)Ordered By: Jerrell Faith on 08-03-2023 Albumin [Mass/Vol] 3.0 g/dL 3.2-5.0 [facility] Serum or plasma albumin/glob ulin mass ratioOrdered By: Jerrell Faith on 08-03-2023 Albumin/Globulin [Mass ratio] 1.2 {ratio} 0.9-2.4 [facility] Thin prep Papanicolaou smear with manual screeningOrdered By: Jerrell Faith on 08-03-2023 Thin prep Papanicolaou smear with manual screening 10 U/L 15-37 [facility] Blood manual differential co mment interpretation (narrative result)Ordered By: Jasmine Tan on 08-02-2023 Manual differential comment Héctor (Bld) [Interp] COMMENT [facility] Comment on above: LYMPHOPENIA. Urine Legionella pneumophila antigen detectionOrdered By: Jasmine Tan on 08-02-2023 L. pneumophila Ag Ql (U) [facility] Absolute lymphocyte countOrd ered By: Lewis Sutton on 08-01-2023 Lymphocytes Auto (Unsp spec) [#/Vol] 0.52 10*3/uL 0.83-4.51 [facility] Basophil percentageOrdered B y: Lewis Sutton on 08-01-2023 Basophils/100 WBC (Bld) 0.2 % 0-1 [facility] Chloride [Moles/Vol] 103 mmol/L 98-107 [facility] Eosinophils/100 WBC (Bld) 0.9 % 0-5 [facility] Glucose [Mass/Vol] 117 mg/dL 74-106 [facility] Comment on above: Fasting Glucose resu lt from 100 to 125 mg/dL suggests IMPAIRED HOMEOSTASIS per A.D.A. criteria. Neutrophils (Bld) [#/Vol] 7.6 10*3/uL 2.0-7.7 [facility] Neutrophils/100 WBC (Bld) 82.0 % 47-70 [facility] Potassium [Moles/Vol] 3.1 mmol/L 3.5-5.1 [facility] Sodium [Moles/Vol] 136 mmol/L 136-145 [facility] WBC (Bld) [#/Vol] 9.2 10*3/uL 4.4-11.0 [facility] Blood erythrocytes count (nu mber/volume)Ordered By: Lewis Sutton on 08-01-2023 RBC (Bld) [#/Vol] 4.78 10*6/uL 4.6-6.2 [facility] Blood hemoglobin measurement (mass/volume)Ordered By: Lewis Sutton on 08-01-2023 Hemoglobin (Bld) [Mass/Vol] 14.8 g/dL 13.0-16.5 [facility] Blood lymphocytes/100 leukoc ytesOrdered By: Lewis Sutton on 08-01-2023 Lymphocytes/100 WBC (Bld) 5.7 % 19-41 [facility] Blood manual differential co mment interpretation (narrative result)Ordered By: Lewis Sutton on 08-01-2023 Manual differential comment Héctor (Bld) [Interp] SCANNED [facility] Blood monocytes/100 leukocyt esOrdered By: Lewis Sutton on 08-01-2023 Monocytes/100 WBC (Bld) 10.3 % 0-10 [facility] Blood platelet mean volumeOr dered By: Lewis Sutton on 08-01-2023 Platelet mean volume (Bld) [Entitic vol] 11.5 fL 6.2-12.0 [facility] Determination of erythrocyte mean corpuscular volume (MCV)Ordered By: Lewis Sutton on 08-01-2023 MCV (RBC) [Entitic vol] 89.5 fL 80-94 [facility] Hematocrit Auto (Bld) [Volum e fraction]Ordered By: Lewis Sutton on 01-03-2024 Hematocrit (Bld) [Volume fraction] 42.8 % 40-54 [facility] Influenza virus A and B and SARS-CoV-2 (COVID-19) Ag panel - Upper respiratory specimOrdered By: Lewis Sutton on 08-01-2023 SARS-CoV-2 (COVID-19) RNA CAMERON+probe Ql (Resp) [facility] Laboratory - Chemistry and C hemistry - challengeOrdered By: Lewis Sutton on 08-01-2023 CO2 [Moles/Vol] 26.0 mmol/L 21.0-32.0 [facility] Natriuretic peptide B (Bld) [Mass/Vol] 198.3 pg/mL 0-100 [facility] Urea nitrogen/Creatinine [Mass ratio] 11.8 mg/mg 10-20 [facility] Laboratory - Hematology and Cell countsOrdered By: Lewis Sutton on 08-01-2023 Erythrocyte distribution width (RBC) [Entitic vol] 46.8 fL 35.1-43.9 [facility] Erythrocyte distribution width (RBC) [Ratio] 14.3 % 11.6-14.6 [facility] Immature granulocytes/100 WBC (Bld) 0.900 % 0.0-0.9 [facility] Comment on above: IG% - Immature Granu locytes (promyelocytes, myelocytes and metamyelocytes) > 1% indicates that a LEFT SHIFT is Present. MCH (RBC) [Entitic mass] 31.0 pg 27.0-32.0 [facility] Nucleated RBC/100 WBC (Bld) [Ratio] 0 % 0-5 [facility] Laboratory - Microbiology an d Antimicrobial susceptibilityOrdered By: Jasmine Tan on 08-01-2023 SARS-CoV-2 (COVID-19) RNA CAMERON+probe Ql (Unsp spec) [facility] MCHC Auto (RBC) [Mass/Vol]Or dered By: Lewis Sutton on 08-01-2023 MCHC (RBC) [Mass/Vol] 34.6 g/dL 32-36 [facility] No Panel InformationOrdered By: Lewis Sutton on 08-01-2023 D-Dimer Quantitative (PE/DVT) 0.47 FEU/ug/m 0.27-0.49 [facility] Comment on above: NORMAL D-Dimer level (<0.50) indicates no DVT or PE. Estimated Creatinine Clearance Calc 50.69 ml/min [facility] Estimated GFR (MDRD) Amer 82 mL/min >60 [facility] Comment on above: GFR Calc Estimated GFR (MDRD) Non-Af Amer 68 mL/min >60 [facility] Comment on above: Non- GFR Calc Troponin I High Sensitivity 8 pg/mL 3.0-78.0 [facility] Comment on above: Please Note: [place] t Units and Gender Specific Reference Ranges. For more information see Policy Stat Procedure [place] High Sensitivity Troponin (TNIH) and attachments. Platelets bldOrdered By: Gabby Sutton on 08-01-2023 Platelets (Bld) [#/Vol] 175 10*3/uL 150-450 [facility] Respiratory pathogens detect ion panel by molecular detection methodOrdered By: Jasmine Tan on 08-01-2023 Respiratory pathogens DNA and RNA panel CAMERON+probe (Resp) [facility] Serum or plasma calcium nichole urement (mass/volume)Ordered By: Lewis Sutton on 08-01-2023 Calcium [Mass/Vol] 8.8 mg/dL 8.5-10.1 [facility] Serum or plasma creatinine m easurement (mass/volume)Ordered By: Lewis Sutton on 08-01-2023 Creatinine [Mass/Vol] 1.10 mg/dL 0.70-1.30 [facility] Comment on above: The validity of the calculated GFR & GFRAA in patients over 70 years has not been determined. Clinical correlation is essential. Serum or plasma urea nitroge n measurement (mass/volume)Ordered By: Lewis Sutton on 08-01-2023 Urea nitrogen [Mass/Vol] 13 mg/dL 7-18 [facility] Serum procalcitonin measurem entOrdered By: Jasmine Tan on 08-01-2023 Procalcitonin [Mass/Vol] 0.07 ng/mL 0.00-0.09 [facility] Comment on above: A procalcitonin (PCT ) [...] prep Papanicolaou smear with manual screening 12-11 [facility] CBC W Auto Differential pane l (Bld)on 06-28-2023 Basophils (Bld) [#/Vol] 0.05 10*3/uL <0.11 k/uL [facility] Basophils/100 WBC (Bld) 0.5 % [facility] Differential cell count method Nom (Bld) Auto [facility] Eosinophils (Bld) [#/Vol] 0.29 10*3/uL <0.46 k/uL [facility] Eosinophils/100 WBC (Bld) 2.6 % [facility] Erythrocyte distribution width (RBC) [Ratio] 13.9 % 11.5 - 15.0 % [facility] Hematocrit (Bld) [Volume fraction] 50.0 % 39.0 - 51.0 % [facility] Hemoglobin (Bld) [Mass/Vol] 16.7 g/dL 13.0 - 17.0 g/dL [facility] Immature granulocytes (Bld) [#/Vol] 0.10 10*3/uL High <0.10 k/uL [facility] Immature granulocytes/100 WBC (Bld) 0.9 % [facility] Lymphocytes (Bld) [#/Vol] 0.81 10*3/uL Low 1.00 - 4.00 k/uL [facility] Lymphocytes/100 WBC (Bld) 7.4 % [facility] MCH (RBC) [Entitic mass] 31.0 pg 26.0 - 34.0 pg [facility] MCHC (RBC) [Mass/Vol] 33.4 g/dL 30.5 - 36.0 g/dL [facility] MCV (RBC) [Entitic vol] 92.9 fL 80.0 - 100.0 fL [facility] Monocytes (Bld) [#/Vol] 0.99 10*3/uL High <0.87 k/uL [facility] Monocytes/100 WBC (Bld) 9.0 % [facility] Neutrophils (Bld) [#/Vol] 8.78 10*3/uL High 1.45 - 7.50 k/uL [facility] Neutrophils/100 WBC (Bld) 79.6 % [facility] Nucleated RBC (Bld) [#/Vol] <0.01 k/uL [facility] Nucleated RBC/100 WBC (Bld) [Ratio] 0.0 /100 WBC [facility] Platelet mean volume (Bld) [Entitic vol] 11.6 fL 9.0 - 12.7 fL [facility] Platelets (Bld) [#/Vol] 229 10*3/uL 150 - 400 k/uL [facility] RBC (Bld) [#/Vol] 5.38 10*6/uL 4.20 - 6.00 m/uL [facility] WBC (Bld) [#/Vol] 11.02 10*3/uL High 3.70 - 11.00 k/uL [facility] Comprehensive metabolic 2000 panelon 06-28-2023 Albumin [Mass/Vol] 4.3 g/dL 3.9 - 4.9 g/dL [facility] ALP [Catalytic activity/Vol] 53 U/L 38 - 113 U/L [facility] ALT [Catalytic activity/Vol] 26 U/L 10 - 54 U/L [facility] Anion gap [Moles/Vol] 9 mmol/L 9 - 18 mmol/L [facility] AST [Catalytic activity/Vol] 21 U/L 14 - 40 U/L [facility] Bilirubin [Mass/Vol] 1.1 mg/dL 0.2 - 1 .3 mg/dL [facility] Calcium [Mass/Vol] 9.8 mg/dL 8.5 - 10. 2 mg/dL [facility] Chloride [Moles/Vol] 103 mmol/L 97 - 10 5 mmol/L [facility] CO2 [Moles/Vol] 27 mmol/L 22 - 30 mmol/L [facility] Creatinine [Mass/Vol] 1.11 mg/dL 0.73 - 1.22 mg/dL [facility] Estimated Glomerular Filtration Rate 65 mL/min/1.73m >=60 mL/min/1.7 3m [facility] Glucose [Mass/Vol] 94 mg/dL 74 - 99 mg/dL [facility] Potassium [Moles/Vol] 4.1 mmol/L 3.7 - 5.1 mmol/L [facility] Protein [Mass/Vol] 6.3 g/dL 6.3 - 8.0 g/dL [facility] Sodium [Moles/Vol] 139 mmol/L 136 - 144 mmol/L [facility] Urea nitrogen [Mass/Vol] 16 mg/dL 9 - 24 mg/dL [facility] CTA ABD/PEL W IVCONon 2022 [facility] XR LUMBAR GENERAL 3V AP/LAT/ L5-S1on 01-31-2023 [facility] XR Lumbar spine 3 Viewson IMPRESSION: NO EVIDE NCE OF FRACTURE Medical Dosimetrist: GINNA Transcribe Date/Time: Jan 31 2023 11:11A Dictated by : RIVERA OLIVAS MD This examination was interpreted and the report reviewed and electronically signed by: RIVERA OLIVAS MD on Jan 31 2023 11:13AM [facility] DIVISION OF RADIOLOGY * * *Final Report* [...] noted. IMPRESSION IMPRESSION: NO EVIDENCE OF FRACTURE Medical Dosimetrist: GINNA Transcribe Date/Time: Jan 31 2023 11:11A Dictated by : RIVERA OLIVAS MD This examination was interpreted and the report reviewed and electronically signed by: RIVERA OLIVAS MD on Jan 31 2023 11:13AM EST [facility] Radiology Study observation (narrative) [facility] XR Lumbar spine 3 ViewsOrder ed By: [facility] Provider on 01-31-2023 [facility] UA DIP, URINE (POC)on 2022 BILIRUBIN UA (POCT) Negative Negative [facility] CLARITY UA (POCT) Clear [facility] COLOR UA (POCT) Yellow [facility] GLUCOSE UA (POCT) Negative Negative mg/dL [facility] HEMOGLOBIN/BLOOD UA (POCT) Negative Negative [facility] KETONE UA (POCT) Negative Negative mg/dL [facility] LEUKOCYTES UA (POCT) Negative Negative [facility] NITRITE UA (POCT) Negative Negative [facility] PH UA (POCT) 5.5 4.5 - 8.0 [facility] Protein Ql (U) Negative Negative mg/dL [facility] SPECIFIC GRAVITY UA (POCT) 1.015 1.005 - 1.030 [facility] UROBILINOGEN UA (POCT) 0.2 E.U./dL Stephany l E.U./dL [facility] Office Visit: PAD, recheck diane jocelynradha siteon 05-31-2017 Documentation of current medications (procedure) Done Invalid Interpretation Code [facility] Work Phone: Fall risk assessment No Invalid Interpretation Code [facility] [employer] Work Phone: Tobacco smoking status NHIS Never Invalid Interpretation Code [facility] [employer] Work Phone: Tobacco use [facility] Former smoker Invalid Interpretation Code [facility] [employer] Work Phone: Lab Report: Basic Metabolic Profile (BMP)on 05-18-2017 Anion gap 9 mmol/L Invalid Interpretation Code -15 [facility] [employer] Work Phone: Anion gap 4 molar conc 9 Invalid Interpretation Code 15 [facility] [employer] Work Phone: Calcium mass conc 8.8 mg/dL Invalid Interpretation Code 8.5-10.1 [facility] [employer] Work Phone: Chloride molar conc 108 mmol/L High 98-107 [facility] [employer] Work Phone: CO2 23.0 mmol/L Invalid Interpretation Code 21.0-32.0 [facility] [employer] Work Phone: CO2 ppres (BldV) 23.0 mmol/L Invalid Interpretation Code 21.0-32.0 [facility] [employer] Work Phone: Creatinine mass conc 0.80 mg/dL Invalid Interpretation Code 0.70-1.30 [facility] [employer] Work Phone: eGFR (non-black) 120 mL/min/{1.73_m2} Invalid Interpretation Code >60 [facility] [employer] Work Phone: EST GFR - AA 120 mL/min Invalid Interpretation Code >60 [facility] [employer] Work Phone: GFR/1.73 sq M predicted among non-blacks MDRD vol rate/area (S/P/Bld) 99 mL/min/{1.73_m2} Invalid Interpretation Code >60 [facility] [employer] Work Phone: Glucose mass conc 120 mg/dL High 70-110 [facility] [employer] Work Phone: Potassium molar conc 3.6 mmol/L Invalid Interpretation Code 3.5-5.1 [facility] [employer] Work Phone: Sodium molar conc 140 mmol/L Invalid Interpretation Code 136-145 [facility] [employer] Work Phone: Urea nitrogen mass conc 13 mg/dL Invalid Interpretation Code 7-18 [facility] [employer] Work Phone: Urea nitrogen/Creatinine mass ratio 16.3 RATIO Invalid Interpretation Code 10-20 [facility] [employer] Work Phone: Office Visit: [facility] 05-08-20 17 Documentation of current medications (procedure) Done Invalid Interpretation Code [facility] [employer] Work Phone: Fall risk assessment No Invalid Interpretation Code [facility] [employer] Work Phone: Protein mass conc Done Invalid Interpretation Code [facility] [employer] Work Phone: Tobacco smoking status NHIS Never Invalid Interpretation Code [facility] [employer] Work Phone: Tobacco smoking status NHIS Former smoker Invalid Interpretation Code [facility] [employer] Work Phone: Tobacco use [facility] Former smoker Invalid Interpretation Code [facility] [employer] Work Phone: Vital Signs Date Time Vital Sign Value Performing Clinician Facility 10-16-2024 08:56-0400 Body height 177.[address] Neo Tejeda DO Work Phone: [facility] 10-16-2024 08:56-0400 Body mass index (BMI) [Ratio] 23.8 kg/m2 Dr. Neo Tejeda DO Work Phone: [facility] 10-16-2024 08:56-0400 Body temperature 97.3 [degF] Dr. Neo Tejeda DO Work Phone: [facility] 10-16-2024 08:56-0400 Body weight 75.[address] Neo Tejeda DO Work Phone: [facility] 10-16-2024 08:56-0400 Diastolic blood pressure 65 mm[Hg] Dr. Neo Tejeda DO Work Phone: [facility] 10-16-2024 08:56-0400 Heart rate 73 /min Dr. Neo Tejeda DO Work Phone: [facility] 10-16-2024 08:56-0400 Respiratory rate 20 /min Dr. Neo Tejeda DO Work Phone: [facility] 10-16-2024 08:56-0400 SaO2% (BldA) [Mass fraction] 90 % Dr. Neo Tejeda DO Work Phone: [facility] 10-16-2024 08:56-0400 Systolic blood pressure 121 mm[Hg] Dr. Neo Tejeda DO Work Phone: [facility] 09-19-2024 14:55-0500 Body mass index (BMI) [Ratio] 22.96 kg/m2 Brigitte Suppan [employer] Work Phone: [facility] 09-19-2024 14:55-0500 Body temperature 98.71 [degF] Brigitte Suppan [employer] Work Phone: [facility] 09-19-2024 14:55-0500 Body weight 72.58 kg Brigitte Suppan [employer] Work Phone: [facility] 09-19-2024 14:55-0500 Diastolic blood pressure 62 mm[Hg] Brigitte Suppan [employer] Work Phone: [facility] 09-19-2024 14:55-0500 Heart rate 80 /min Brigitte Suppan [employer] Work Phone: [facility] 09-19-2024 14:55-0500 SaO2% (BldA) [Mass fraction] 90 % Brigitte Suppan [employer] Work Phone: [facility] Comment on above: 3 liters of oxygen 09-19-2024 14:55-0500 Systolic blood pressure 128 mm[Hg] Brigitte Suppan [employer] Work Phone: [facility] 09-15-2024 15:00-0500 Body temperature 97.6 [degF] Dr. Neo Tejeda DO Work Phone: [facility] 09-15-2024 15:00-0500 Diastolic blood pressure 71 mm[Hg] Dr. Neo Tejeda DO Work Phone: [phone] [place] [address] 09-15-2024 15:00-0500 Heart rate 82 /min Dr. Neo Tejeda DO Work Phone: [phone])[phone] [place] [address] 09-15-2024 15:00-0500 Respiratory rate 16 /min Dr. Neo Tejeda DO Work Phone: 7(486)[phone] [place] [address] 09-15-2024 15:00-0500 SaO2% (BldA) [Mass fraction] 93 % Dr. Neo Tejeda DO Work Phone: [phone])[phone] [place] [address] 09-15-2024 15:00-0500 Systolic blood pressure 140 mm[Hg] Dr. Neo Tejeda DO Work Phone: 8(303)[phone] [place] [address] 09-15-2024 10:09-0500 Body weight 73.[address] Neo Tejeda DO Work Phone: 6([phone] [place] [address] 09-15-2024 09:00-0500 Inhaled oxygen flow rate 3 L/min Dr. Neo Tejeda DO Work Phone: [phone] [place] [address] 09-15-2024 03:59-0500 Body mass index (BMI) [Ratio] 23.1 kg/m2 Dr. Neo Tejeda DO Work Phone: 6([phone] [place] [address] 09-12-2024 09:19-0500 Inhaled oxygen concentration 34 % Dr. Neo Tejeda DO Work Phone: [facility] 03-27-2024 07:47-0400 Body mass index (BMI) [Ratio] 21.81 kg/m2 Brigitte Segal [employer] Work Phone: [facility] 03-27-2024 07:47-0400 Body weight 68.95 kg Brigitte Segal [employer] Work Phone: [facility] 03-27-2024 07:47-0400 Diastolic blood pressure 67 mm[Hg] Brigitte Suppan [employer] Work Phone: [facility] 03-27-2024 07:47-0400 Heart rate 63 /min Brigitte Suppan [employer] Work Phone: [facility] 03-27-2024 07:47-0400 Respiratory rate 16 /min Brigitte Suppan [employer] Work Phone: [facility] 03-27-2024 07:47-0400 SaO2% (BldA) [Mass fraction] 94 % Brigitte Suppan [employer] Work Phone: [facility] 03-27-2024 07:47-0400 Systolic blood pressure 126 mm[Hg] Brigitte Suppan [employer] Work Phone: [facility] 02-25-2024 08:22-0400 Body mass index (BMI) [Ratio] 21.81 kg/m2 Brigitte Suppan [employer] Work Phone: [facility] 02-25-2024 08:22-0400 Body weight 68.95 kg Brigitte Suppan [employer] Work Phone: [facility] 02-25-2024 08:22-0400 Diastolic blood pressure 70 mm[Hg] Brigitte Suppan [employer] Work Phone: [facility] 02-25-2024 08:22-0400 Heart rate 60 /min Brigitte Suppan [employer] SCALER.PASTRYCOOK Work Phone: [facility] 02-25-2024 08:22-0400 Respiratory rate 16 /min Brigitte Suppan COMPOUNDING SCALER.PASTRYCOOK Work Phone: [facility] 02-25-2024 08:22-0400 SaO2% (BldA) [Mass fraction] 94 % Brigitte Suppan COMPOUNDING SCALER.PASTRYCOOK Work Phone: [facility] 02-25-2024 08:22-0400 Systolic blood pressure 148 mm[Hg] Brigitte Suppan COMPOUNDING SCALER.PASTRYCOOK Work Phone: [facility] 12-25-2023 08:53-0400 Body mass index (BMI) [Ratio] 22.81 kg/m2 NA Durbin PA-C Work Phone: [facility] 12-25-2023 08:53-0400 Body weight 72.12 kg NA Durbin PA-C Work Phone: [facility] 12-25-2023 08:53-0400 Diastolic blood pressure 68 mm[Hg] NA Durbin PA-C Work Phone: [facility] 12-25-2023 08:53-0400 Heart rate 61 /min NA Durbin PA-C Work Phone: [facility] 12-25-2023 08:53-0400 Respiratory rate 16 /min NA Durbin PA-C Work Phone: [facility] 12-25-2023 08:53-0400 SaO2% (BldA) [Mass fraction] 95 % NA Durbin PA-C Work Phone: [facility] 12-25-2023 08:53-0400 Systolic blood pressure 120 mm[Hg] NA Durbin PA-C Work Phone: [facility] 09-25-2023 09:07-0500 Body weight 72.12 kg NA Durbin PA-C Work Phone: [facility] 09-25-2023 09:07-0500 Diastolic blood pressure 62 mm[Hg] NA Durbin PA-C Work Phone: [facility] 09-25-2023 09:07-0500 Heart rate 66 /min NA Durbin PA-C Work Phone: [facility] 09-25-2023 09:07-0500 Respiratory rate 16 /min NA Durbin PA-C Work Phone: [facility] 09-25-2023 09:07-0500 SaO2% (BldA) [Mass fraction] 92 % NA Durbin PA-C Work Phone: [facility] 09-25-2023 09:07-0500 Systolic blood pressure 110 mm[Hg] NA Durbin PA-C Work Phone: [facility] 08-04-2023 12:46-0500 SaO2% (BldA) [Mass fraction] 98 % PA NA Durbin PA Work Phone: [facility] 08-04-2023 10:58-0500 Heart rate 75 /min PA NA Durbin PA Work Phone: [facility] 08-04-2023 10:58-0500 Respiratory rate 16 /min PA NA Durbin PA Work Phone: [facility] 08-04-2023 09:00-0500 Body temperature 97.2 [degF] PA NA Durbin PA Work Phone: [facility] 08-04-2023 09:00-0500 Diastolic blood pressure 62 mm[Hg] PA NA Durbin PA Work Phone: [facility] 08-04-2023 09:00-0500 Systolic blood pressure 138 mm[Hg] PA NA Durbin PA Work Phone: [facility] 08-04-2023 07:20-0500 Inhaled oxygen flow rate 4 L/min PA NA Durbin PA Work Phone: [facility] 08-04-2023 03:07-0500 Body mass index (BMI) [Ratio] 22.6 kg/m2 PA NA Durbin PA Work Phone: [facility] 08-04-2023 03:07-0500 Body weight 71.4 kg PA NA Durbin PA Work Phone: [facility] 08-02-2023 13:52-0500 Body height 177.8 cm PA NA Durbin PA Work Phone: [facility] 08-01-2023 20:53-0500 Inhaled oxygen concentration 92 % PA NA Durbin PA Work Phone: [facility] 08-01-2023 16:17-0500 Diastolic blood pressure 76 mm[Hg] [facility] 08-01-2023 16:17-0500 Heart rate 77 /min [facility] 08-01-2023 16:17-0500 SaO2% (BldA) [Mass fraction] 91 % [facility] 08-01-2023 16:17-0500 Systolic blood pressure 150 mm[Hg] [facility] 08-01-2023 16:16-0500 Inhaled oxygen flow rate 5 L/min [facility] 08-01-2023 16:16-0500 Respiratory rate 24 /min [facility] 08-01-2023 12:44-0500 Body height 177.8 cm [facility] 08-01-2023 12:44-0500 Body mass index (BMI) [Ratio] 23.3 kg/m2 [facility] 08-01-2023 12:44-0500 Body temperature 97.9 [degF] [facility] 08-01-2023 12:44-0500 Body weight 73.66 kg [facility] 06-28-2023 08:57-0500 Body weight 70.94 kg NA Durbin PA-C Work Phone: [facility] 06-28-2023 08:57-0500 Diastolic blood pressure 70 mm[Hg] NA Durbin PA-C Work Phone: [facility] 06-28-2023 08:57-0500 Heart rate 60 /min NA Durbin PA-C Work Phone: [facility] 06-28-2023 08:57-0500 Respiratory rate 16 /min NA Durbin PA-C Work Phone: [facility] 06-28-2023 08:57-0500 SaO2% (BldA) [Mass fraction] 97 % NA Durbin PA-C Work Phone: [facility] 06-28-2023 08:57-0500 Systolic blood pressure 122 mm[Hg] NA Durbin PA-C Work Phone: [facility] 05-25-2023 11:07-0400 Body temperature 98.1 [degF] Jair Marvin MD Work Phone: [facility] 05-25-2023 11:07-0400 Body weight 71.67 kg Jair aMrvin MD Work Phone: [facility] 05-25-2023 11:07-0400 Diastolic blood pressure 69 mm[Hg] Jair Marvin MD Work Phone: [facility] 05-25-2023 11:07-0400 Heart rate 70 /min Jair Marvin MD Work Phone: [facility] 05-25-2023 11:07-0400 Respiratory rate 18 /min Jair Marvin MD Work Phone: [facility] 05-25-2023 11:07-0400 SaO2% (BldA) [Mass fraction] 93 % Jair Marvin MD Work Phone: [facility] 05-25-2023 11:07-0400 Systolic blood pressure 132 mm[Hg] Jair Marvin MD Work Phone: [facility] 02-08-2023 09:28-0400 Body weight 71.67 kg NA Durbin PA-C Work Phone: [facility] 02-08-2023 09:28-0400 Diastolic blood pressure 80 mm[Hg] NA Durbin PA-C Work Phone: [facility] 02-08-2023 09:28-0400 Heart rate 56 /min NA Durbin PA-C Work Phone: [facility] 02-08-2023 09:28-0400 Respiratory rate 16 /min NA Durbin PA-C Work Phone: [facility] 02-08-2023 09:28-0400 SaO2% (BldA) [Mass fraction] 96 % NA Durbin PA-C Work Phone: [facility] 02-08-2023 09:28-0400 Systolic blood pressure 148 mm[Hg] NA Durbin PA-C Work Phone: [facility] 01-31-2023 10:43-0400 Body temperature 97.9 [degF] Rebekah Athy PA-C Work Phone: [facility] 01-31-2023 10:43-0400 Body weight 73.57 kg Rebekah Athy PA-C Work Phone: [facility] 01-31-2023 10:43-0400 Diastolic blood pressure 86 mm[Hg] Rebekah Athy PA-C Work Phone: [facility] 01-31-2023 10:43-0400 Heart rate 58 /min Rebekah Athy PA-C Work Phone: [facility] 01-31-2023 10:43-0400 Respiratory rate 18 /min Rebekah Athy PA-C Work Phone: [facility] 01-31-2023 10:43-0400 SaO2% (BldA) [Mass fraction] 97 % Rebekah Athy PA-C Work Phone: [facility] 01-31-2023 10:43-0400 Systolic blood pressure 164 mm[Hg] Rebekah Athy PA-C Work Phone: [facility] 11-27-2022 14:57-0400 Body weight 73.03 kg NA Durbin PA-C Work Phone: [facility] 11-27-2022 14:57-0400 Diastolic blood pressure 68 mm[Hg] NA Durbin PA-C Work Phone: [facility] 11-27-2022 14:57-0400 Heart rate 57 /min NA Durbin PA-C Work Phone: [facility] 11-27-2022 14:57-0400 SaO2% (BldA) [Mass fraction] 96 % NA Durbin PA-C Work Phone: [facility] 11-27-2022 14:57-0400 Systolic blood pressure 130 mm[Hg] NA Durbin PA-C Work Phone: [facility] 06-21-2022 23:01-0500 Heart rate 85 /min PA NA Durbin PA Work Phone: [facility] Work Phone: 06-21-2022 23:01-0500 Respiratory rate 15 /min PA NA Durbin PA Work Phone: [facility] Work Phone: 06-21-2022 23:01-0500 SaO2% (BldA) [Mass fraction] 98 % PA NA Durbin PA Work Phone: [facility] Work Phone: 06-21-2022 21:53-0500 Body height 177.8 cm PA NA Durbin PA Work Phone: [facility] Work Phone: 06-21-2022 21:53-0500 Body mass index (BMI) [Ratio] 22.9 kg/m2 PA NA Durbin PA Work Phone: [facility] Work Phone: 06-21-2022 21:53-0500 Body temperature 97.8 [degF] PA NA Durbin PA Work Phone: [facility] Work Phone: 06-21-2022 21:53-0500 Body weight 72.57 kg PA NA Durbin PA Work Phone: [facility] Work Phone: 06-21-2022 21:53-0500 Diastolic blood pressure 80 mm[Hg] PA NA Durbin PA Work Phone: [facility] Work Phone: 06-21-2022 21:53-0500 Systolic blood pressure 166 mm[Hg] PA NA Durbin PA Work Phone: [facility] Work Phone: 02-08-2022 12:26-0400 Body height 177.[address] Brian Mackenzie III Work Phone: [facility] Work Phone: 02-08-2022 12:26-0400 Body mass index (BMI) [Ratio] 23.5 kg/m2 Dr. Brian Mackenzie III Work Phone: [facility] Work Phone: 02-08-2022 12:26-0400 Body weight 74.[address] Brian Mackenzie III Work Phone: [facility] Work Phone: 02-08-2022 12:26-0400 Diastolic blood pressure 69 mm[Hg] Dr. Brian Mackenzie III Work Phone: [facility] Work Phone: 02-08-2022 12:26-0400 Heart rate 56 /min Dr. Brian Mackenzie III Work Phone: [facility] Work Phone: 02-08-2022 12:26-0400 Respiratory rate 16 /min Dr. Brian Mackenzie III Work Phone: [facility] Work Phone: 02-08-2022 12:26-0400 SaO2% (BldA) [Mass fraction] 96 % Dr. Brian Mackenzie III Work Phone: [facility] Work Phone: 02-08-2022 12:26-0400 Systolic blood pressure 125 mm[Hg] Dr. Brian Mackenzie III Work Phone: [facility] Work Phone: 05-31-2017 08:40-0400 BMI (Body Mass Index) 23.11 kg/m2 Quan Mackenzie MD [facility] Work Phone: 05-31-2017 08:40-0400 Body Temperature 97.9 [degF] Quan Mackenzie MD [facility] Work Phone: 05-31-2017 08:40-0400 BP Diastolic 70 mm[Hg] Quan Mackenzie MD [facility] Work Phone: 05-31-2017 08:40-0400 BP Systolic 150 mm[Hg] Quan Mackenzie MD [facility] Work Phone: 05-31-2017 08:40-0400 Height 182.88 cm [address] [facility] Work Phone: 05-31-2017 08:40-0400 Pulse (Heart Rate) 74 /min Quan Mackenzie MD [facility] Work Phone: 05-31-2017 08:40-0400 Respiratory Rate 20 /min Quan Mackenzie MD [facility] Work Phone: 05-31-2017 08:40-0400 Weight 77.29 kg Quan Mackenzie MD [facility] Work Phone: 05-08-2017 14:55-0400 BMI (Body Mass Index) 23.08 kg/m2 Quan Mackenzie MD [facility] Work Phone: 05-08-2017 14:55-0400 Body Temperature 97.5 [degF] uQan Mackenzie MD [facility] Work Phone: 05-08-2017 14:55-0400 BP Diastolic 76 mm[Hg] Quan Mackenzie MD [facility] Work Phone: 05-08-2017 14:55-0400 BP Systolic 175 mm[Hg] Quan Mackenzie MD [facility] Work Phone: 05-08-2017 14:55-0400 Height 182.88 [address] Mackenzie MD [facility] [employer] Work Phone: 05-08-2017 14:55-0400 Pulse (Heart Rate) 67 /min Quan Mackenzie MD [facility] Work Phone: 05-08-2017 14:55-0400 Respiratory Rate 20 /min Quan Mackenzie MD [facility] Work Phone: 05-08-2017 14:55-0400 Weight 77.2 kg Quan Mackenzie MD [facility] Work Phone: Encounters Encounter Date Encounter Type Care Provider Facility Start: 10-31-2024 End: 10-31-2024 Telephone encounter Brigitte Segal COMPOUNDING SCALER.PASTRYCOOK Work Phone: [facility] Comment on above: [id number]; Initial Consu lt Start: 10-31-2024 ambulatory Brigitte Suppan Facil ity:[facility] Start: 10-27-2024 End: 10-27-2024 Telephone encounter Brigitte Segal APRN.PASTRYCOOK Work Phone: [facility] Comment on above: Orders; patient POC Start: 10-16-2024 End: 10-16-2024 Patient encounter procedure Kalyn Taylor [facility] Work Phone: Start: 10-16-2024 End: 10-16-2024 ambulatory Brigitte Suppan Facility:[facility] Start: 10-15-2024 End: 10-30-2024 Telephone encounter Brigitte Segal APRN.PASTRYCOOK Work Phone: [facility] Comment on above: Patient Update Start: 10-03-2024 End: 10-03-2024 Telephone encounter Brigitte Segal APRN.PASTRYCOOK Work Phone: [facility] Comment on above: Oxygen; FYI-No Actio n Needed (/) Start: 09-19-2024 End: 09-19-2024 ambulatory BRIGITTE Lemos SUPPHEAVENLY Facility:[facility] Start: 09-19-2024 End: 09-19-2024 Office outpatient visit 25 minutes Brigitte Segal APRN.PASTRYCOOK Work Phone: [facility] Comment on above: Chronic insomnia (Pr imary Dx); Benign prostatic hyperplasia with nocturia; Screening for depression; Hyperlipidemia LDL goal <100; Essential hypertension, benign; Parkinson's disease without dyskinesia, unspecified whether manifestations fluctuate (HCC); 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 John Soliz [facility] Work Phone: Start: 09-14-2024 Non-patient / Non-visit Dr. Lester Eduardo [facility] Work Phone: Start: 09-13-2024 Non-patient / Non-visit Dr. Lester Eduardo [facility] Work Phone: Start: 09-12-2024 Non-patient / Non-visit Dr. Lester Eduardo [facility] Work Phone: Start: 09-11-2024 Non-patient / Non-visit Dr. Lester Eduardo [facility] Work Phone: Start: 09-10-2024 Non-patient / Non-visit Dr. Lester Eduardo [facility] Work Phone: Start: 09-09-2024 End: 09-09-2024 Telephone encounter Brigitte Segal COMPOUNDING SCALER.PASTRYCOOK Work Phone: [facility] Start: 09-09-2024 Non-patient / Non-visit Dr. Lester Eduardo [facility] Work Phone: Start: 09-08-2024 ambulatory Brigitte Segal Facil ity:[facility] Start: 09-08-2024 Non-patient / Non-visit [facility] Elmer MANUEL [facility] Start: 09-08-2024 Non-patient / Non-visit Dr. Lester Eduardo [facility] Work Phone: Start: 09-07-2024 Non-patient / Non-visit Dr. Jerrell badillo [facility] Work Phone: Start: 09-07-2024 ambulatory Lester Perdomo Facility:[facility] Start: 09-07-2024 End: 09-15-2024 Evaluation and management of inpatient Jerrell Faith Facility:[facility] Start: 03-27-2024 End: 03-27-2024 ambulatory BRIGITTE A SUPPAN Facility:[facility] Start: 03-27-2024 End: 03-27-2024 Office outpatient visit 15 minutes Brigitte A Suppan COMPOUNDING SCALER.PASTRYCOOK Work Phone: [facility] Comment on above: S/P primary angiopla sty with coronary stent; PAD (peripheral artery disease) (HCC); Hyperlipidemia LDL goal <100; Anxiety state; Benign prostatic hyperplasia with nocturia; Essential hypertension, benign; Left sided abdominal pain Start: 03-13-2024 Refill Radha Salgado on PA-C Work Phone: [facility] Comment on above: Refill Request Start: 02-28-2024 ambulatory Radha KING Fac ility:[facility] Start: 02-26-2024 Telephone encounter Brigitte A Suppan COMPOUNDING SCALER.PASTRYCOOK Work Phone: [facility] Start: 02-25-2024 End: 02-25-2024 ambulatory BRIGITTE A SUPPAN Facility:[facility] Start: 02-25-2024 End: 02-25-2024 Office outpatient visit 15 minutes Brigitte A Suppan COMPOUNDING SCALER.PASTRYCOOK Work Phone: [facility] Comment on above: Left sided abdominal pain (Primary Dx); Essential hypertension, benign Start: 02-19-2024 End: 02-19-2024 ambulatory Radha KING Facility:[facility] Start: 02-09-2024 End: 02-09-2024 Emergency department patient visit Radha KING Facility:[facility] Start: 12-31-2023 Refill Radha Salgado on PA-C Work Phone: [facility] Comment on above: Refill Request Start: 12-28-2023 Telephone encounter Walter Gomez MD Work Phone: [facility] Comment on above: Results Start: 12-27-2023 End: 12-27-2023 ambulatory CASPER DURBIN Facility:[facility] Start: 12-25-2023 End: 12-25-2023 ambulatory CASPER JUSTIN DURBIN Facility:[facility] Start: 12-25-2023 End: 12-25-2023 Patient encounter procedure Radha Durbin PA-C Work Phone: [facility] Comment on above: 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 (Primary Dx); S/P [...] 12-13-2023 Refill Radha benjamin PA-C Work Phone: [facility] Comment on above: Refill Request Start: 09-25-2023 End: 09-25-2023 Patient encounter procedure Radha Durbin PA-C Work Phone: [facility] Comment on above: 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; S/P primary angioplasty [...] Non-patient / Non-visit CHRISTINE KING Work Phone: [facility] Work Phone: Start: 08-03-2023 Non-patient / Non-visit PA NA Durbin PA Work Phone: [facility] Work Phone: Start: 08-02-2023 Non-patient / Non-visit PA NANDA Durbin PA Work Phone: [facility] Work Phone: Start: 08-01-2023 End: 08-04-2023 Evaluation and management of inpatient PA NANDA Durbin PA Work Phone: [facility] Work Phone: Start: 08-01-2023 Evaluation and manag ement of inpatient [facility] Work Phone: Start: 07-10-2023 Refill Radha Salgado on PA-C Work Phone: [facility] Comment on above: Refill Request Start: 07-02-2023 Telephone encounter Radha WareJustin Durbin PA-C Work Phone: [facility] Start: 06-28-2023 End: 06-28-2023 Patient encounter procedure Radha Durbin PA-C Work Phone: [facility] Comment on above: 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 (Primary Dx); S/P primary angioplasty with coronary stent; Angina pectoris ([facility]); Atherosclerosis of aorta ([facility]); Essential hypertension, benign; Hyperlipidemia LDL goal <100; PAD (peripheral artery disease) ([facility]); Parkinson's disease without dyskinesia, with fluctuating manifestations; Hyperbilirubinemia; Gastroesophageal reflux disease, unspecified whether esophagitis present; Benign prostatic hyperplasia with nocturia; Anxiety state; Diarrhea, unspecified type Start: 06-18-2023 Refill Radha Salgado on PA-C Work Phone: [facility] Comment on above: Refill Request Start: 05-25-2023 End: 05-25-2023 Patient encounter procedure Jair Marvin MD Work Phone: [facility] Comment on above: Abrasion of anterior right lower leg, initial encounter (Primary Dx) Start: 05-14-2023 Telephone encounter Radha Justin Durbin PA-C Work Phone: [facility] Comment on above: Results Start: 05-11-2023 Telephone encounter Radha Justin Durbin PA-C Work Phone: [facility] Comment on above: Results Start: 05-11-2023 End: 05-11-2023 Subsequent hospital visit by physician [facility] (I-Stat) Work Phone: [facility] Comment on above: Atherosclerosis of a ken (HCC) [I70.0] Start: 02-08-2023 End: 02-08-2023 Patient encounter procedure Radha Justin Durbin PA-C Work Phone: [facility] Comment on above: Piriformis syndrome, left (Primary Dx); Somatic dysfunction of left sacroiliac joint Start: 01-31-2023 End: 01-31-2023 Subsequent hospital visit by physician Xr [facility] Work Phone: Radiology Comment on above: Back pain of lumbar region with sciatica [M54.40] Start: 01-31-2023 End: 01-31-2023 Patient encounter procedure Rebekah Salazar PA-C Work Phone: [facility] Comment on above: Back pain of lumbar region with sciatica (Primary Dx) Start: 01-12-2023 Refill Walter Gomez MD Work Phone: [facility] Comment on above: Refill Request Start: 11-30-2022 Telephone encounter Radha Justin Durbin PA-C Work Phone: [facility] Comment on above: Results Start: 11-27-2022 End: 11-27-2022 Patient encounter procedure Radha Justin Durbin PA-C Work Phone: [facility] Comment on above: S/P primary [...] Refill Radha Salgado on PA-C Work Phone: [facility] Comment on above: Refill Request Start: 07-07-2022 Refill Radha Justin Salgado on PA-C Work Phone: [facility] Comment on above: Refill Request Start: 06-21-2022 End: 06-21-2022 Emergency department patient visit CHRISTINE KING Work Phone: [facility] Start: 04-10-2022 Refill Radha Justin Salgado on PA-C Work Phone: [facility] Comment on above: Refill Request Start: 02-27-2022 Non-patient / Non-visit Dr. Fr georgina Mackenzie III Work Phone: [facility] Start: 02-27-2022 End: 02-27-[address] Brian Mackenzie III Work Phone: [facility] Start: 02-08-2022 End: 02-08-[address] Brian Mackenzie III Work Phone: [facility] Start: 01-09-2022 Refill Radha Salgado on PA-C Work Phone: [facility] Comment on above: Refill Request Procedures Date Procedure Procedure Detail Performing Clinician Start: 09-19-2024 Adult depression scr eening assessment Brigitte Segal COMPOUNDING SCALER.PASTRYCOOK Work Phone: Start: 09-14-2024 Estimated creatinine clearance [...] primary angioplasty with coronary stent Brigitte Segal APRN.PASTRYCOOK Work Phone: Plan of Treatment Date Care Activity Detail Author Start: 02-24-2027 Diabetes Screening Diabetes Screening [facility] Start: 12-26-2026 Diabetes Screening Diabetes Screening [facility] Start: 06-28-2026 Diabetes Screening Diabetes Screening [facility] Start: 05-10-2026 Urine microalbumin profile [facility] Start: 11-29-2025 DIABETES SCREEN DIABETES SCREEN [facility] Start: 11-29-2025 Diabetes Screening Diabetes Screening [facility] Start: 09-19-2025 Depression Screening Depression Screening [facility] Start: 03-19-2025 End: 03-19-2025 Patient encounter procedure 03/19/2025 10:40 AM EDT Office Visit [facility] [address] [place] [address] Brigitte Segal COMPOUNDING SCALER.PASTRYCOOK [address] [place] [id number] 6 month exam [facility] Comment on above: 6 month exam Start: 01-26-2025 Influenza vaccination Influenza Vaccine (#1) [facility] Comment on above: Postponed from 03/30/2024 (Declined at t his time) Start: 12-26-2024 Hepatitis B surface antibody level LDL Cholesterol [facility] Start: 12-24-2024 Covid-19 Vaccine ( season) Covid-19 Vaccine () [facility] Comment on above: Postponed from 08/31/2023 (Declined at t his time) Start: 12-24-2024 DIABETES SCREEN DIABETES SCREEN [facility] Start: 10-20-2024 End: 10-20-2024 Patient encounter procedure 10/20/2024 10:00 AM EDT Office Visit Family [facility] [place] [address] [place] [address] Brigitte Segal APRN.PASTRYCOOK [address] [place] [address] follow up Family [facility] [place] Comment on above: follow up Start: 09-19-2024 End: 09-19-2024 Patient encounter procedure 09/19/2024 2:40 PM EST Office Visit [facility] [place] [address] [place] [address] Brigitte Segal, COMPOUNDING SCALER.PASTRYCOOK [address] [facility] [place] [id number] [phone] follow up [facility] for hypoxia Family [facility] Comment on above: follow up [facility] for hypoxia Start: 09-15-2024 Referral to service [facility] Start: 09-15-2024 Patient discharge [facility] Start: 09-08-2024 Referral to occupational therapist [facility] Start: 09-08-2024 Referral to service [facility] Start: 09-08-2024 Physiotherapy of chest [facility] Start: 09-07-2024 Following clinical pathway protocol [facility] Start: 09-07-2024 Ambulation without limitation [facility] Start: 09-07-2024 Assessment of risk of venous thromboembolism [facility] Start: 09-07-2024 Catheterization of vein [facility] Start: 09-07-2024 Inhalation therapy procedure [facility] Start: 09-07-2024 Insertion of catheter into peripheral vein [facility] Start: 09-07-2024 Measuring intake and output [facility] Start: 09-07-2024 Providing care according to standard [facility] Start: 09-07-2024 Provision of activity privileges [facility] Start: 09-07-2024 [facility] Start: 09-07-2024 Admission procedure [facility] Start: 09-07-2024 Oxygen therapy [facility] Start: 09-07-2024 [facility] Start: 09-07-2024 Continuous positive airway pressure ventilation treatment [facility] Start: 09-07-2024 Patient referral to dietitian [facility] Start: 07-30-2024 Advance Directive Discussion Advance Directive Discussion [facility] Start: 07-01-2024 End: 07-01-2024 Patient encounter procedure 07/01/2024 9:00 AM EST Office Visit [facility] [place] [address] [place] [address] Radha Durbin PA-C [address] [place] [address] 6 month follow up [facility] Comment on above: 6 month follow up Start: 03-30-2024 Covid-19 Vaccine () Covid-19 Vaccine () [facility] Start: 03-30-2024 Covid-19 Vaccine ( season) Covid-19 Vaccine () [facility] Start: 03-30-2024 Influenza vaccination Influenza Vaccine (#1) [facility] Start: 03-27-2024 End: 03-27-2024 Patient encounter procedure 03/27/2024 8:00 AM EDT Office Visit [facility] [place] [address] [place] [address] Brigitte Segal APRN.PASTRYCOOK [address] [facility] [place] [place] [address] 1 month abdominal pain f/u [facility] Comment on above: 1 month abdominal pain f/u Start: 02-25-2024 End: 05-26-2024 Amylase [Enzymatic activity/volume] in Serum or Plasma [facility] Comment on above: Expected: 02/25/2024, Expires: 4 Start: 02-25-2024 End: 05-26-2024 CBC W Auto Differential panel - Blood [facility] Comment on above: Expected: 02/25/2024, Expires: 4 Start: 02-25-2024 End: 05-26-2024 Comprehensive metabolic 2000 panel - Serum or Plasma [facility] Comment on above: Expected: 02/25/2024, Expires: Start: 02-25-2024 End: 05-26-2024 Helicobacter pylori IgG Ab [Presence] in Serum or Plasma by Immunoassay [facility] Work Phone: Comment on above: Expected: 02/25/2024, Expires: 4 Start: 02-25-2024 End: 05-26-2024 Lipase [Enzymatic activity/volume] in Serum or Plasma [facility] Comment on above: Expected: 02/25/2024, Expires: 4 Start: 02-09-2024 COVID-19 VACCINE (4 - Pfizer series) COVID-19 VACCINE (4 - Pfizer series) [facility] Comment on above: Postponed from 07/13/2021 (Declined at t his time) Start: 02-09-2024 SHINGRIX VACCINE (1 of 2) SHINGRIX VACCINE (1 of 2) [facility] Comment on above: Postponed from 11/04/1987 (Declined at t his time) Start: 12-25-2023 End: 12-25-2023 Patient encounter procedure 12/25/2023 9:00 AM EDT Office Visit Family [facility] [place] [address] [place] [address] Radha Durbin PA-C [address] [place] [address] 3 month follow up [facility] [place] Comment on above: 3 month follow up Start: 12-24-2023 End: 03-24-2024 CBC W Auto Differential panel - Blood COMPLETE BLOOD COUNT AND DIFFERENTIAL Lab Routine 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 Essential hypertension, benign Hyperlipidemia LDL goal <100 Gastroesophageal reflux disease, unspecified whether esophagitis present Anxiety state Expected: 12/24/2023, Expires: 03/24/2024 [facility] Work Phone: Comment on above: Expected: 12/24/2023, Expires: Start: 12-24-2023 End: 03-24-2024 Comprehensive metabolic 2000 panel - Serum or Plasma COMPREHENSIVE METABOLIC PANEL Lab Routine 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 Essential hypertension, benign Hyperbilirubinemia Gastroesophageal reflux disease, unspecified whether esophagitis present Anxiety state Expected: 12/24/2023, Expires: 03/24/2024 [facility] Comment on above: Expected: 12/24/2023, Expires: Start: 12-24-2023 End: 03-24-2024 Lipid 1996 panel - Serum or Plasma LIPID PANEL BASIC Lab Routine 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 Atherosclerosis of aorta (HCC) Hyperlipidemia LDL goal <100 Expected: 12/24/2023, Expires: 03/24/2024 [facility] Comment on above: Expected: 12/24/2023, Expires: Start: 12-24-2023 End: 03-24-2024 Magnesium [Mass/volume] in Serum or Plasma MAGNESIUM Lab Routine 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 Current use of proton pump inhibitor Expected: 12/24/2023, Expires: 03/24/2024 [facility] Comment on above: Expected: 12/24/2023, Expires: Start: 11-30-2023 Hepatitis B surface antibody level LDL CHOLESTEROL [facility] Start: 08-31-2023 Covid-19 Vaccine () Covid-19 Vaccine () [facility] Start: 08-04-2023 Patient discharge [facility] Start: 08-04-2023 [facility] Start: 08-03-2023 Physiotherapy of chest [facility] Start: 08-01-2023 Elevation of head of bed [facility] Start: 08-01-2023 Patient education [facility] Start: 08-01-2023 [facility] Start: 08-01-2023 Following clinical pathway protocol [facility] Start: 08-01-2023 Oxygen therapy [facility] Start: 08-01-2023 Admission procedure [facility] Start: 08-01-2023 Provision of activity privileges [facility] Start: 08-01-2023 Assessment of risk of venous thromboembolism [facility] Start: 08-01-2023 Insertion of catheter into peripheral vein [facility] Start: 08-01-2023 Measuring intake and output [facility] Start: 08-01-2023 Providing care according to standard [facility] Start: 08-01-2023 End: 08-01-2023 Referral to service [facility] Start: 08-01-2023 [facility] Start: 08-01-2023 Hospital admission, emergency, from emergency room, medical nature [facility] Start: 08-01-2023 Inhalation therapy procedure [facility] Start: 07-30-2023 Advance Directive Discussion Advance Directive Discussion [facility] Start: 07-30-2023 Behavioral Health Screening Behavioral Health Screening [facility] Start: 07-30-2023 Depression Assessment Depression Assessment [facility] Start: 07-29-2023 DEPRESSION ASSESSMENT DEPRESSION ASSESSMENT [facility] Comment on above: Postponed from 07/30/2022 (Declined at t his time) Start: 03-30-2023 Influenza vaccination [facility] Start: 12-24-2022 Hepatitis B surface antibody level LDL CHOLESTEROL [facility] Start: 12-19-2022 SHINGRIX VACCINE (1 of 2) SHINGRIX VACCINE (1 of 2) [facility] Comment on above: Postponed from 11/04/1987 (Insurance Cov erage) Start: 11-27-2022 End: 01-27-2023 CBC panel - Blood by Automated count CBC Lab Routine S/P primary angioplasty with coronary stent Expected: 11/27/2022, Expires: 01/27/2023 [facility] Work Phone: Comment on above: Expected: 11/27/2022, Expires: 3 Start: 11-27-2022 End: 01-27-2023 Comprehensive metabolic 2000 panel - Serum or Plasma COMP METABOLIC PANEL Lab Routine S/P primary angioplasty with coronary stent Expected: 11/27/2022, Expires: 01/27/2023 [facility] Work Phone: Comment on above: Expected: 11/27/2022, Expires: 3 Start: 11-27-2022 End: 01-27-2023 Lipid 1996 panel - Serum or Plasma LIPID PANEL BASIC Lab Routine S/P primary angioplasty with coronary stent Expected: 11/27/2022, Expires: 01/27/2023 [facility] Work Phone: Comment on above: Expected: 11/27/2022, Expires: 3 Start: 11-27-2022 End: 01-27-2023 Prostate specific Ag [Mass/volume] in Serum or Plasma PSA/PROSTSPECAG DIAG Lab Routine Elevated PSA Expected: 11/27/2022, Expires: 01/27/2023 [facility] Work Phone: Comment on above: Expected: 11/27/2022, Expires: 3 Start: 07-30-2022 ADVANCE DIRECTIVE DISCUSSION ADVANCE DIRECTIVE DISCUSSION [facility] Start: 07-30-2022 DEPRESSION ASSESSMENT DEPRESSION ASSESSMENT [facility] Start: 03-30-2022 Influenza vaccination INFLUENZA (#1) [facility] Start: 02-08-2022 Patient referral [facility] Work Phone: Start: 09-18-2021 COVID-19 VACCINE (4 - Booster for Pfizer series) COVID-19 VACCINE (4 - Booster for Pfizer series) [facility] Start: 07-30-2021 DEPRESSION ASSESSMENT DEPRESSION ASSESSMENT [facility] Start: 07-13-2021 COVID-19 VACCINE (4 - Booster for Pfizer series) COVID-19 VACCINE (4 - Booster for Pfizer series) [facility] Start: 05-31-2017 End: 05-31-[address] [facility] [employer] Work Phone: Start: 05-22-2017 End: 05-22-[address] [facility] [employer] Work Phone: Start: 05-08-2017 End: 05-08-[address] [facility] [employer] Work Phone: Start: 05-08-2017 End: 05-08-2017 Arterial exam Arterial exam [facility] [employer] Work Phone: Start: 05-08-2017 End: 05-08-2017 N-invas physiologic std lxtr art compl bi PVR with exercise [facility] [employer] Work Phone: Start: 2012 RSV Vaccine (1 - 1-dose 75+ series) RSV Vaccine (1 - 1-dose 75+ series) [facility] Start: 1997 RSV Vaccine (1 - 1-dose 60+ series) RSV Vaccine (1 - 1-dose 60+ series) [facility] Start: 11-04-1987 SHINGRIX VACCINE (1 of 2) SHINGRIX VACCINE (1 of 2) [facility] Start: 11-04-1955 Depression Screening Depression Screening [facility] Cyclic citrullinated peptide IgG Ab [Units/volume] in Serum or Plasma [facility] Cytoplasmic ANCA Screen [facility] Measurement of respiratory function [facility] Patient Education ED Epistaxis (Adult) [facility] Work Phone: Patient referral [facility] Work Phone: Rheumatoid factor [Presence] in Serum [facility] [place] [facility] Immunizations Immunization Date Immunization Notes Care Provider Mendoza lee 04-30-2023 COVID-19 vaccine, ag e 12+ yr, season (PFIZER-BIONTECH) NA Durbin PA-C Work Phone: [facility] 04-16-2023 influenza, high dose seasonal, preservative-free NA Durbin PA-C Work Phone: [facility] 04-16-2023 influenza virus vacc ine, unspecified formulation Brigittecolette Segal COMPOUNDING SCALER.PASTRYCOOK Work Phone: [facility] 05-16-2022 influenza (HD-IIV4) vaccine, age 65+ yr, high dose, quadrivalent, PF (FLUZONE HIGH-DOSE) Brigitte Segal COMPOUNDING SCALER.PASTRYCOOK Work Phone: [facility] 05-18-2021 COVID-19 vaccine, ag e 12+ yr (PFIZER-BIONTECH - PURPLE TOP) NA Durbin PA-C Work Phone: [facility] 05-18-2021 influenza (HD-IIV4) vaccine, age 65+ yr, high dose, quadrivalent, PF (FLUZONE HIGH-DOSE) NA Durbin PA-C Work Phone: [facility] 05-18-2021 influenza, high dose seasonal, preservative-free NA Durbin PA-C Work Phone: [facility] 11-01-2020 COVID-19 vaccine, ag e 12+ yr (PFIZER-BIONTECH - PURPLE TOP) NA Durbin PA-C Work Phone: [facility] 10-08-2020 COVID-19 vaccine, ag e 12+ yr (PFIZER-BIONTECH - PURPLE TOP) NA Durbin PA-C Work Phone: [facility] 04-26-2020 influenza, high-dose , quadrivalent vaccine (FLUZONE HIGH DOSE QUADRIVALENT) NA Durbin PA-C Work Phone: [facility] 04-13-[address] Brian Mackenzie III Work Phone: [facility] 04-24-2018 influenza, high dose seasonal, preservative-free NA Durbin PA-C Work Phone: [facility] 05-14-2017 influenza, high dose seasonal, preservative-free NA Durbin PA-C Work Phone: [facility] 05-10-2016 pneumococcal conjuga te vaccine, 13 valent NA Durbin PA-C Work Phone: [facility] 05-10-2016 tetanus toxoid, redu lane diphtheria toxoid, and acellular pertussis vaccine, adsorbed NA Durbin PA-C Work Phone: [facility] 04-29-[address] Brian Mackenzie III Work Phone: [facility] 03-27-2008 pneumococcal polysaccharide vaccine, 23 valent NA Durbin PA-C Work Phone: [facility] Work Phone: Payers Date Payer Category Payer Self-pay [id number] 2017 Medicare (Managed Care) PRIMETIM E [id number] 2017 Unknown PRIMETIME PRIMET [place] HMO POS [id number] 2017-Present [phone] [address] [place] [address] [facility] [id number] 2017 Unknown PRIMETIME PRIMET [place] HMO POS [id number] 2017-Present [phone] [address] [place] [address] HMO [id number] 2009 Unknown [id number] Unknown [id number] Unknown [id number]. 2.462 Unknown [id number]. 2.462 Unknown [id number]. 2.462 Unknown [id number] [id number]. 2.462 Unknown [id number]. 2.462 Unknown [id number]. 2.462 Unknown [id number]. 2.462 Unknown [id number]. 2.462 Unknown [id number] [id number]. 2.462 Unknown [id number] [id number]. 2.462 Unknown [id number] [id number]. 2.462 Unknown [id number] [id number]. 2.462 Unknown [id number] [id number]. 2.462 Unknown [id number] [id number]. 2.462 Unknown [id number]. 2.462 Social History Date Type Detail Facility Start: 07-11-2017 End: 09-07-2024 Tobacco smoking status NHIS Ex-smoker [facility] Work Phone: Start: 12-19-2021 End: 09-19-2024 Alcohol intake Current drinker of alcohol (finding) [facility] Start: 1935 Sex Assigned At Not on file [facility] Start: 12-13-2021 End: 12-23-2021 Exposure to SARS-CoV-2 (event) Not sure [facility] Start: 02-08-2022 End: 08-01-2023 Tobacco smoking status WAIS Unknown if ever smoked [facility] Start: 08-26-2020 Occasional [facility] Start: 08-26-2020 None [facility] Start: 08-26-2020 Spouse/ Signif icant Other [facility] Start: 08-26-2020 Non-smoker [facility] Start: 1935 Sex Assigned At Male [facility] History of tobacco use Current smoker [facility] Start: 07-11-2017 End: 11-27-2022 Tobacco use and exposure Smokeless tobacco non-user [facility] Start: 11-27-2022 Tobacco Comment quit 2000 [facility] Start: 12-22-2022 End: 02-08-2023 History of Social function [facility] Start: 12-22-2022 End: 02-08-2023 Tobacco use panel [facility] Adult Depression Screening Assessment 0 [facility] Goals Date Patient Goal Desired Activity /State Functional Status Date Assessment Result Facility 09-15-2024 Functional status Chair [facility] Work Phone: 08-04-2023 Functional status Ambulates [facility] Work Phone: 09-21-2017 Are you deaf, or do you have serious difficulty hearing No 09/21/2017 1:31 PM Brian Whitman III, MD No [facility] 09-21-2017 Are you blind, or do you have serious difficulty seeing, even when wearing glasses No 09/21/2017 1:31 PM Brian Whitman III, MD No [facility] 09-21-2017 Do you have serious difficulty walking or climbing stairs No 09/21/2017 1:31 PM Brian Whitman III, MD No [facility] 09-21-2017 Do you have difficul ty dressing or bathing No 09/21/2017 1:31 PM Brian Whitman III, MD No [facility] 09-21-2017 Because of a physica l, mental, or emotional condition, do you have difficulty doing errands alone such as visiting a physician's office or shopping No 09/21/2017 1:31 PM Biran Whitman III, MD [facility] Mental Status Date Assessment Result Facility 09-15-2024 Cognitive function Voice/Name [facility] Work Phone: 08-03-2023 Cognitive function Voice/Name [facility] Work Phone: 08-01-2023 Cognitive function Level Of Cons ciousness Awake;Alert;Appropriate;Fol lows Commands [facility] Work Phone: 09-21-2017 Because of a physica l, mental, or emotional condition, do you have serious difficulty concentrating, remembering, or making decisions No 09/21/2017 1:31 PM Brian Whitman III, MD [facility] Clinical Notes 08-30-2017 to 10-31-2024 Telephone [...] med order meant for [facility] [place]. Jaqueline Andre RN October 31, 2024 [facility] 10-31-2024 Miscellaneous Notes Palliative Medicine Referral Assessment Referral Accepted: No, Reason for Denial: Chart reviewed, pal med order meant for [facility] in [place]. Jaqueline Andre RN October 31, 2024 documented in this encounter [facility] 10-27-2024 Telephone encounter Note Pts daughter Pili [...] on her brothers phone number as well. [facility] 10-27-2024 Miscellaneous Notes Pts daughter Pili called [...] patient wishes to be referred. Rohan with [facility] calls to report family is requesting order for palliative care. Fax order to [facility] [place]. Rohan also reports he saw pt today and is extending nurse to once a week x 2 weeks. Pt will then be discharged from Nursing. Rohan reports that Pulmonary gave new dx for pt of COPD and pulmonary htn. Amita Kim LPN documented in this encounter [facility] 10-27-2024 Telephone encounter Note Pt called and [...] into accepting palliative care. Shira Mcgill, RN [facility] 10-27-2024 Telephone encounter Note Please ask patient if he wants a palliative care consult? Palliative care is not end-of-life care but symptom management and chronic disease. Consult placed if patient wishes to be referred. [facility] 10-27-2024 Telephone encounter Note Rohan with [facility] calls to report family is requesting order for palliative care. Fax order to [facility] [place]. Rohan also reports he saw pt today and is extending nurse to once a week x 2 weeks. Pt will then be discharged from Nursing. Rohan reports that Pulmonary gave new dx for pt of COPD and pulmonary htn. Amita Kim LPN [facility] 10-15-2024 Telephone encounter Note Paulino- nurse- [facility]- reports he did patient eval today and will extend HHC visits to 1 x week for 2 weeks. Pt is still on 4 L O2 after pneumonia. Pt will see pulm tomorrow. [facility] 10-15-2024 Miscellaneous Notes Paulino- nurse- [facility]- reports he did patient eval today and will extend HHC visits to 1 x week for 2 weeks. Pt is still on 4 L O2 after pneumonia. Pt will see pulm tomorrow. documented in this encounter [facility] 10-03-2024 Telephone encounter Note Detailed message left on secure line for Jamie [facility] Shirley Rivera MA October 03, 2024 3:56 PM [facility] 10-03-2024 Miscellaneous Notes Detailed message left on secure line for Jamie [facility] Shirley Rivera MA October 03, 2024 3:56 PM Yes. Please increase O2 to 4l. Thank you for the recert. Jamie with [facility] is calling due to he saw [...] back with information. documented in this encounter [facility] 10-03-2024 Telephone encounter Note Yes. Please increase O2 to 4l. Thank you for the recert. [facility] 10-03-2024 Telephone encounter Note Jamie with [facility] is calling due to he saw [...] advise, Jamie needs called back with information. [facility] 09-19-2024 Telephone encounter Note Sounds good. Agree. [facility] 09-19-2024 Miscellaneous Notes Sounds good. Agree. Rohan calling with [facility] Physical Therapy with plan of care for patient. Pt will be seen 1x per week for 4 weeks for functional mobility training. No call back needed if provider agreeable. Whit Sheridan RN documented in this encounter [facility] 09-19-2024 Instructions Brigitte Segal APRN.CNP - 09/19/2024 3:24 PM EST 1) Mirtazapine 7.5 mg at bedtime for sleep 2) Follow up in 6 months documented in this encounter [facility] 09-19-2024 Note HNO ID: [id number] Author: BRIGITTE SEGAL APRN.CNP Service: ? Author [...] lipoma performed by Dr. Robe Mackenzie at [facility] REVSC OPN/PRQ FEM/POP W/STNT/ANGIOP SM VSL [...] Parkinson's disease with (more content not included)... [facility] 09-19-2024 History of Presen t illness Narrative [...] lipoma performed by Dr. Robe Mackenzie at [facility] REVSC OPN/PRQ FEM/POP W/STNT/ANGIOP SM VSL [...] no tremor 7. 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 Pt will be seen 1x per week for 4 weeks for functional mobility training. No call back needed if provider agreeable. Whit Sheridan, ZACKARY [facility] 09-18-2024 Telephone encounter Note HHN was not at home, just granddaughter. She did report no cough. Pt has appointment with PCP tomorrow. [facility] 09-18-2024 Miscellaneous Notes HHN was not at home, just granddaughter. She did report no cough. Pt has appointment with PCP tomorrow. Absolutely keep at 3L. Any report on lung sounds? Haley from [facility] calls and reports that granddaughter had [...] provider tomorrow 09/19/2024. Please Contact Haley back [phone]. Tracy Cedillo RN Patient will need to stay on oxygen until he follows up with pulmonary. I have not seen him since February 2024 therefore I am not really able to shed any light on his oxygen use. Not common to use oxygen for only a week. Hellen calling from [facility] to report plan of care for patient and usp will visit patient 1 time a week for 1 week and 2 times a week for 2 weeks. [facility] will work with patient on wound care (patient has skin tear to right elbow) and management of O2 levels. Hellen had no orders for wound care. Hellen cleaned wound and put on Vaseline gauze and band aid. Hellen also notes that patient is on Oxygen and thought that he was only going to be on oxygen for a week. Patient does not see [employer] for a month. Hellen did not know if provider wanted to address Oxygen use. Patient is scheduled to see PCP 09/19/2024. No call back needed unless there are questions. Tracy Cedillo RN documented in this encounter [facility] 09-18-2024 Telephone encounter Note Absolutely keep at 3L. Any report on lung sounds? [facility] 09-18-2024 Telephone encounter Note Haley from [facility] calls and reports that granddaughter had [...] provider tomorrow 09/19/2024. Please Contact Haley back [phone]. Tracy Cedillo RN [facility] 09-18-2024 Telephone encounter Note Patient will need to stay on oxygen until he follows up with pulmonary. I have not seen him since February 2024 therefore I am not really able to shed any light on his oxygen use. Not common to use oxygen for only a week. [facility] 09-17-2024 Telephone encounter Note Hellen calling from [facility] to report plan of care for patient and usp will visit patient 1 time a week for 1 week and 2 times a week for 2 weeks. [facility] will work with patient on wound care (patient has skin tear to right elbow) and management of O2 levels. Hellen had no orders for wound care. Hellen cleaned wound and put on Vaseline gauze and band aid. Hellen also notes that patient is on Oxygen and thought that he was only going to be on oxygen for a week. Patient does not see [employer] for a month. Hellen did not know if provider wanted to address Oxygen use. Patient is scheduled to see PCP 09/19/2024. No call back needed unless there are questions. Tracy Cedillo RN [facility] 09-15-2024 Telephone encounter Note Patient is [...] 5 mg daily to 10 mg daily [facility] 09-15-2024 Miscellaneous Notes Patient is an [...] mg daily Yes. Of course Rochelle from [facility] calls and states that patient is being discharged from [facility] PCU on 09/05/2024 with the diagnosis of hypoxia and acute respiratory failure. Rochelle asking if provider willing to follow patient with orders for usp, physical therapy, occupational therapy and social work. If agreeable please give Rochelle a call back . Thank you, Tracy Cedillo RN documented in this encounter [facility] 09-15-2024 Telephone encounter Note Yes. Of course [facility] 09-15-2024 Telephone encounter Note Rochelle from [facility] calls and states that [facility] with the diagnosis of hypoxia and acute respiratory failure. Rochelle asking if provider willing to follow patient with orders for usp, physical therapy, occupational therapy and social work. If agreeable please give Rochelle a call back . Thank you, Tracy Cedillo RN [facility] 09-15-2024 Note [facility] Medical Records Department [address] [place] [address] Discharge Summary 09/15/24 0952 MR#: [id number] Acct: [id number] Name: CLARK LYLES Rep #: [id number] : 1935 88 From: John Soliz MD PCP: MARIANA Humphreys Status:ADM IN Location: [place] [address] Providers Date of Admission: 09/07/24 Date of [...] of Joints or (more content not included)... [facility] 09-09-2024 Telephone encounter Note Patient was admitted to [facility] on September 07 to 2024 for altered [...] is a DNR CC with no intubation. [facility] 09-09-2024 Miscellaneous Notes Patient was admitted to [facility] on September 07 to 2024 for altered [...] with no intubation. documented in this encounter [facility] 09-07-2024 Evaluation note Diagnosis Onset Date Resolution Hypoxia inactive September 07, 2024 12:42pm Pulmonary hypertension acute [facility] 2024 12:57pm COPD (chronic obstructive pulmonary disease) chronic October 16, 2024 12:57pm [facility] Work Phone: 1(287) 663-619808-29-2024 Instructions* Patient Instructions* Brigitte Segal APRN.CNP - 03/27/2024 8:18 AM EDT 1) eliminate omeprazole but continue pantoprazole 2) discontinue trazodone, replaced with Tylenol PM 3) follow up in Jun. as scheduled documented in this encounterUpper [facility] Center08-29-2024 NoteHNO ID: [id number] Author: BRIGITTE SEGAL APRN.CNP Service: ? Author [...] lipoma performed by Dr. Robe Mackenzie at [facility] 03-18-14: REVSC OPN/PRQ FEM/POP W/STNT/ANGIOP SM [...] - Controlled - Counse (more content not included)...[facility]08-29-2024 History of Present illness Narrative* Brigitte Segal APRN.PASTRYCOOK - 03/27/2024 8:03 AM EDT This is [...] lipoma performed by Dr. Robe Mackenzie at [facility] 03-18-14: REVSC OPN/PRQ FEM/POP W/STNT/ANGIOP SM [...] improvement. Brigitte Segal APRN.JANET documented in this encounterUpper [facility]08-[facility]24 Telephone encounter Note * Telephone Encounter - [...] Velez LPN March 13, 2024 10:13 AM [facility]08-15-2024 Miscellaneous Notes* Telephone Encounter - Renetta Velez [...] 13, 2024 10:13 AM documented in this encounterUpper [facility] Center07-30-2024 Telephone encounter Note * Telephone Encounter - Shirley Rivera MA - 02/26/2024 8:28 AM EDT Patient was made aware of the results. Patient verbalizes understanding. Shirley Rivera Ma [facility]07-30-2024 Miscellaneous Notes* Telephone Encounter - Shirley Rivera MA - 02/26/2024 8:28 AM EDT Patient was made aware of the results. Patient verbalizes understanding. Sihrley Rivera Ma * Telephone Encounter - Brigitte Segal APRN.CNP - 02/26/2024 8:00 AM EDT Patient does not have MyChart. Please let him know that he was negative for H. pylori the bacteria that causes ulcers. Blood counts are okay, kidney function liver function, and pancreas are all normal. Lets see how he does on the pantoprazole. documented in this encounterUpper [facility] Center07-30-2024 Telephone encounter Note * Telephone Encounter - Brigitte Segal APRN.CNP - 02/26/2024 8:00 AM EDT Patient does not have MyChart. Please let him know that he was negative for H. pylori the bacteria that causes ulcers. Blood counts are okay, kidney function liver function, and pancreas are all normal. Lets see how he does on the pantoprazole. [facility]07-29-2024 Instructions* Patient Instructions* Brigitte Segal APRN.CNP - 02/25/2024 8:50 AM EDT 1) Check labs 2) Flagyl 500 mg 3 x day 3) Cipro 500 mg 2 x day 4) Start pantoprazole 40 mg daily 5) Follow up in 1 month documented in this encounterUpper Valley [facility] Center07-29-2024 NoteHNO ID: [id number] Author: BRIGITTE SEGAL APRN.JANET Service: ? Author [...] lipoma performed by Dr. Robe Mackenzie at [facility] REVSC OPN/PRQ FEM/POP W/STNT/ANGIOP SM VSL [...] - Recheck in 1 month Brigitte Segal APRN.[facility]07-29-2024 History of Present illness Narrative* Brigitte Segal APRN.[facility] - 02/25/2024 8:35 AM EDT This [...] lipoma performed by Dr. Robe Mackenzie at [facility] REVSC OPN/PRQ FEM/POP W/STNT/ANGIOP SM VSL [...] - Recheck in 1 month Brigitte Segal APRN.PASTRYCOOK documented in this encounterUpper [facility] Center06-07-2024 Telephone encounter Note * Telephone Encounter - Shirley Rivera MA - 01/04/2024 3:40 PM EDT Letter mailed to patient [facility]06-07-2024 Miscellaneous Notes* Telephone Encounter - Shirley Rivera MA - 01/04/2024 3:40 PM EDT Letter mailed to patient * Telephone Encounter - Shirley Rivera MA - 01/01/2024 4:48 PM EDT Attempted to call, no answer * Telephone Encounter - Walter Gomez MD - 12/28/2023 2:27 PM EDT Let him know his labs are stable. documented in this encounterUpper [facility] Medical Center06-04-2024 Telephone encounter Note * Telephone Encounter - Shirley Rivera MA - 01/01/2024 4:48 PM EDT Attempted to call, no answer [facility]06-03-2024 Telephone encounter Note* Telephone Encounter - Victoria [...] 07/01/2024 Please advise. Thank you. Victoria Berkowitz. [facility]06-03-2024 Miscellaneous Notes* Telephone Encounter - Victoria Gleason [...] Thank you. Victoria Berkowitz. documented in this encounterUpper Valley Medical Center05-31-2024 Telephone encounter Note * Telephone Encounter - Walter Gomez MD - 12/28/2023 2:27 PM EDT Let him know his labs are stable. [facility] Work Phone: 1(517) 217-596005-28-2024 Instructions* Patient Instructions* Radha Durbin PA-C - 12/25/2023 9:46 AM EDT Please schedule as soon as possible [place] [facility] documented in this encounterUpper Valley Medical Center05-28-2024 History of Present illness Narrative* Radha Durbin PA-C - 12/25/2023 9:00 AM EDT 88 year old male with c/o here for follow up. 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 08/02/2023 echocardiogram [facility]: LV size WNL, mild concentric LVH, EF [...] to suggest ischemia. 02/08/2022 last cardiology visit [place]: [employer] feels he is doing well and stable. [...] Lymph 1.00 - 4.00 k/uL 0.81 (L) [place]% % 9.0 Abs [place]oto <0.87 k/uL 0.99 (H) Eosin% % 2.6 [...] because he felt bad in the mornings. [place] better after he stopped. Can think of [...] lipoma performed by Dr. Robe Mackenzie at [facility] REVSC OPN/PRQ FEM/POP W/STNT/ANGIOP SM VSL [...] Chronic Blood Loss Coronary Artery Disease Involving Deering Coronary Artery of Deering Heart S/P Primary Angioplasty With Coronary Stent [...] refill. ASSESSMENT/PLAN: 1. 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 Radha Durbin PA-C documented in this encounterUpper Valley Medical Center05-28-2024 NoteHNO ID: [id number] Author: Radha DURBIN PA-C Service: ? Author Type: Physician Product Ambassador Type: Progress Notes Filed: 12/26/2023 14:22 Note Text: 88 year old male with c/o here for follow up. 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 08/02/2023 echocardiogram [facility]: LV size WNL, mild concentric LVH, EF [...] to suggest ischemia. 02/08/2022 last cardiology visit [place]: [employer] feels he is doing well and stable. [...] Lymph 1.00 - 4.00 k/uL 0.81 (L) [place]% % 9.0 Abs [place] <0.87 k/uL 0.99 (H) Eosin% % 2.6 [...] because he felt bad in the mornings. [place] bett (more content not included)...[facility]05-16-2024 Telephone encounter Note* Telephone Encounter - Kassandra Quispe RN - 12/13/2023 4:55 PM EDT Spoke with patient. Gave permission for son, Quincy to receive medical information. Spoke with Quincy and let him know script was sent. Kassandra Quispe RN [facility]05-16-2024 Miscellaneous Notes* Telephone Encounter - Kassandra Quispe [...] 12/25/2023 Please return call to Quincy venegas [phone] Please advise. Thank you. Danita Staples. documented in this encounterUpper Valley Medical Center05-16-2024 Telephone encounter Note * Telephone Encounter - [...] we are unable to give him information. [facility]05-16-2024 Telephone encounter Note* Telephone Encounter - Danita [...] 12/25/2023 Please return call to Quincy venegas [phone] Please advise. Thank you. Danita Staples. [facility]02-27-[facility] History of Present illness Narrative* Radha Durbin PA-C - 09/25/2023 9:00 AM EST 87 year old male with c/o here for 3 month follow up Hospital discharge summary Facility: [facility] Date of admission 08/01/2023 Date of discharge 08/04/2023 Discharge diagnoses and Plan 1. Acute hypoxia: Admitted through [facility] emergency department with complaint of progressive shortness [...] daughter in the 80's percentile. Went to [facility] and sent to ER. Placed on O2. [...] Rocephin and Zithromax was continued 08/02/2023 echocardiogram [facility]: LV size WNL, mild concentric LVH, EF [...] dehydration or weakness. 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 02/08/2022 last cardiology visit [place]: [employer] feels he is doing well and stable. [...] Lymph 1.00 - 4.00 k/uL 0.81 (L) [place]% % 9.0 Abs [place] <0.87 k/uL 0.99 (H) Eosin% % 2.6 [...] because he felt bad in the mornings. [place] better after he stopped. 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 Robe Mackenzie at [facility] REVSC OPN/PRQ FEM/POP W/STNT/ANGIOP SM VSL [...] Chronic Blood Loss Coronary Artery Disease Involving Deering Coronary Artery of Deering Heart S/P Primary Angioplasty With Coronary Stent [...] refill. ASSESSMENT/PLAN: 1. 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 S/P primary angioplasty with coronary stent - ICD9: V45.82, ICD10: Z95.5 3. Angina pectoris (HCC) - ICD9: 413.9, ICD10: I20.9 4. Atherosclerosis of aorta (HCC) - ICD9: 440.0, ICD10: I70.0 Stable, no ischemic sx, see [place] [facility] 5. Essential hypertension, benign - ICD9: [...] which included preparing to see the patient, [id number] patient care, completing clinical documentation, obtaining and/or [...] data. Radha Durbin PA-C documented in this encounterUpper [facility] Center01-06-2024 Discharge summary Author Jerrell Faith [facility] August 04, 2023 12:59pm Note Date/Time August 04, 2023 11 :14am [facility] Medical Records Department [address] [place] [address] Discharge Summary 08/04/23 1114 MR#: [id number] Acct: [id number] Name: CLARK LYLES Rep #:[id number] : 1935 87 From: Jerrell Faith MD PCP: CHRISTINE Brown Status:ADM I N Location: [place] [address] Providers Date of Admission: 08/01/23 Date of [...] 76.4 H, Lymph % (Auto) 8.9 L, [place] % (Auto) 9.4, Eos % (Auto) 4.1, [...] Self Care Charges/Coding Visit Charges Inpatient E&M: 32345 Disch Hosp >30min 08/04/23 1259 <Electronically signed by Jerrell Faith MD> Cosigner Signature (if applicable): CC: Dr. Jerrell Faith MD; CHRISTINE Brown~ Signed [facility] Work Phone: 1(215) 835-444701-06-2024 Progress note Author Jerrell Faith [facility] August 04, 2023 11:09am Note Date/Time August 04, 2023 8: 05am [facility] Medical Records Department [address] [place] [address] Progress Note - Hospitalist 08/04/23 0805 MR#: [id number] Acct: [id number] Name: CLARK LYLES Rep #:[id number] : 1935 87 From: Jerrell Faith MD PCP: CHRISTINE Brown Status:ADM I N Location: [place] [address] Reason for Visit Reason for Visit: Diagnoses [...] 76.4 H, Lymph % (Auto) 8.9 L, [place] % (Auto) 9.4, Eos % (Auto) 4.1, [...] 35 Minutes Charges/Coding Visit Charges Inpatient E&M: 24916 Subs Hosp L2 08/04/23 1109 <Electronically signed by Jerrell Faith MD> Cosigner Signature (if applicable): CC: ~ Signed [facility] Work Phone: 1(179) 179-269401-05-2024 Progress note Author Jerrell Faith [facility] August 03, 2023 9:52am Note Date/Time August 03, 2023 8: 06am [facility] Medical Records Department [address] [place] [address] Progress Note - Hospitalist 08/03/23 0802 MR#: [id number] Acct: [id number] Name: CLARK LYLES Rep #:[id number] : 1935 87 From: Jerrell Faith MD PCP: CHRISTINE Brown Status:ADM I N Location: [place] [address] Reason for Visit Reason for Visit: Diagnoses [...] documentation, 50Minutes Charges/Coding Visit Charges Inpatient E&M: 20252 Subs Hosp L3 08/03/23 0952 <Electronically signed by Jerrell Faith MD> Cosigner Signature (if applicable): CC: ~ Signed [facility] Work Phone: 1(106) 780-985701-04-2024 Progress note Author Jerrell Galeasto [facility] August 02, 2023 3:17pm Note Date/Time August 02, 2023 10 :55am [facility] Medical Records Department [address] [place] [address] Progress Note - Hospitalist 08/02/23 1055 MR#: [id number] Acct: [id number] Name: CLARK LYLES Rep #:[id number] : 1935 87 From: Jerrell Faith MD PCP: CHRISTINE Brown Status:ADM I N Location: [place] [address] Reason for Visit Reason for Visit: Patient [...] 82.0 H, Lymph % (Auto) 5.7 L, [place] %(Auto) 10.3 H, Eos % (Auto) 0.9, [...] 88.2 H, Lymph % (Auto) 5.4 L, [place] % (Auto) 5.8, Eos % (Auto) 0.0, [...] documentation, 50Minutes Charges/Coding Visit Charges Inpatient E&M: 10027 Subs Hosp 08/02/23 1517 <Electronically signed by Jerrell Faith MD> Cosigner Signature (if applicable): CC: ~ Signed [facility] Work Phone: 1(852) 698-248001-03-2024 Discharge summary Author Lewis Sutton [facility] August 01, 2023 4:18pm Note Date/Time August 01, 2023 1: 26pm [facility] Medical Records Department [address] [place] [address] Emergency Department Summary 08/01/23 MR#: [id number] Acct: [id number] Name: CLARK LYLES Rep #:[id number] : 1935 87 From: Lewis Sutton MD PCP: CHRISTINE Brown Status:ADM I N Location: [place] [address] HPI History of Present Illness Chief Complaint: [...] he has dyspnea on exertion as well. [facility] Medical History Acute respiratory failure with hypoxia Anxiety Anxiety and depression Atherosclerosis of coronary artery of solomon heart without angina pectoris BPH (benign prostatic [...] 82.0 H Lymph % (Auto) 5.7 L [place] % (Auto) 10.3 H Eos % (Auto) [...] 15:00 EST Reading Location ID and State: [facility] / [place] Tel , Service support , Discharge Plan Dx/Rx/DC Orders Clinical Impression: Hypoxia, Pneumonia, SOB (shortness of breath), Hypokalemia Disposition Disposition: Acute Care [facility] What to do if you have Problems For any increased pain, shortness of breath, bleeding, nausea or vomiting, chestpain, or any unexpected problems, contact your Primary Care Provider. Call [facility] ([phone]) or report to the closest Emergency Room. Call 911 if necessary. 08/01/23 1618 <Electronically signed by Lewis Sutton MD> Cosigner Signature (if applicable): CC: CHRISTINE Brown ~ Signed [facility] Work Phone: 1(381) 902-251501-03-2024 Discharge summary Author Lewis Sutton [facility] August 01, 2023 4:18pm Note Date/Time August 01, 2023 1: 26pm [facility] Medical Records Department [address] [place] [address] Emergency Department Summary 08/01/23 MR#: [id number] Acct: [id number] Name: CLARK LYLES Rep #:[id number] : 1935 87 From: Lewis Sutton MD PCP: CHRISTINE Brown Status:ADM I N Location: [place] [address] HPI History of Present Illness Chief Complaint: [...] he has dyspnea on exertion as well. [facility] Medical History Acute respiratory failure with hypoxia Anxiety Anxiety and depression Atherosclerosis of coronary artery of solomon heart without angina pectoris BPH (benign prostatic [...] 82.0 H Lymph % (Auto) 5.7 L [place] % (Auto) 10.3 H Eos % (Auto) [...] 15:00 EST Reading Location ID and State: [facility] / [place] Tel , Service support , Discharge Plan Dx/Rx/DC Orders Clinical Impression: Hypoxia, Pneumonia, SOB (shortness of breath), Hypokalemia Disposition Disposition: Acute Care [facility] What to do if you have Problems For any increased pain, shortness of breath, bleeding, nausea or vomiting, chestpain, or any unexpected problems, contact your Primary Care Provider. Call [facility] ([phone]) or report to the closest Emergency Room. Call 911 if necessary. 08/01/23 1618 <Electronically signed by Lewis Sutton MD> Cosigner Signature (if applicable): CC: CHRISTINE Brown ~ Signed [facility] Work Phone: 1(409) 369-527812-12-2023 Miscellaneous Notes* Telephone Encounter - Davina Fajardo - 07/10/2023 9:33 AM EST Patient has been identified by name and date of : Yes Requested Prescriptions Pending Prescriptions Disp Refills tamsulosin (FLOMAX) 0.4 mg 180 capsule 3 Sig: Take 2 capsules by mouth once daily. RX INSTRUCTIONS: Patient aware RX will be sent to [facility] pharmacy. No need to notify patient. Davina Fajardo documented in this encounterUpper Valley [facility] Center12-04-2023 Miscellaneous Notes* Telephone Encounter - Shirley Rivera [...] Thanks, Chaz Durbin PA-C documented in this encounterUpper Valley Medical Center11-30-2023 History of Present illness Narrative* Radha Durbin PA-C - 06/28/2023 9:00 AM EST 87 year old male with c/o here for 3 month follow up Still having issues with diarrhea, watery to mushy. No pain Moving bowels twice a day, previously once a day. 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 alcohol or drug abuse patient.[facility] CenterIn the event this information is protected by the Federal Confidentiality of Alcohol and Drug Abuse Patient Records regulations: The Federal rules restrict any use of the information to criminally investigate or prosecute any alcohol or drug abuse patient.[facility] CenterIn the event this information is protected by the Federal Confidentiality of Alcohol and Drug Abuse Patient Records regulations: The Federal rules restrict any use of the information to criminally investigate or prosecute any alcohol or drug abuse patient.[facility] CenterIn the event this information is protected by the Federal Confidentiality of Alcohol and Drug Abuse Patient Records regulations: The Federal rules restrict any use of the information to criminally investigate or prosecute any alcohol or drug abuse patient.[facility] CenterIn the event this information is protected by the Federal Confidentiality of Alcohol and Drug Abuse Patient Records regulations: The Federal rules restrict any use of the information to criminally investigate or prosecute any alcohol or drug abuse patient.[facility] CenterIn the event this information is protected by the Federal Confidentiality of Alcohol and Drug Abuse Patient Records regulations: The Federal rules restrict any use of the information to criminally investigate or prosecute any alcohol or drug abuse patient.[facility] CenterIn the event this information is protected by the Federal Confidentiality of Alcohol and Drug Abuse Patient Records regulations: The Federal rules restrict any use of the information to criminally investigate or prosecute any alcohol or drug abuse patient.[facility] CenterIn the event this information is protected by the Federal Confidentiality of Alcohol and Drug Abuse Patient Records regulations: The Federal rules restrict any use of the information to criminally investigate or prosecute any alcohol or drug abuse patient.[facility] CenterIn the event this information is protected by the Federal Confidentiality of Alcohol and Drug Abuse Patient Records regulations: The Federal rules restrict any use of the information to criminally investigate or prosecute any alcohol or drug abuse patient.[facility] Reason for Visit (unrecogniz ed [...] 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 Reason Comments Radiology CT Specialty Diagnoses / Procedures Referred By Armando t Referred To Contact CT IMAGING Diagnoses Atherosclerosis of aorta (HCC) Procedures CTA ABD/PEL W IVCON CT ANGIO ABD&PLVIS CNTRST MTRL W/WO CNTRST Radha Bob PA-C [address] [place] [address] [place] [address] Referral ID Status Reason Start Date Expiration Date V isits Requested Visits Authorized [id number] Closed Auto-Generate d Referral 04/30/2023 07/29/2023 1 [...] Health PT Plan of Care Reason Comments [facility] Plan of Care Reason Comments Oxygen FYI-No Action Needed Reason Comments Orders patient POC Reason Comments Patient Update Reason Comments [id number] Initial Consult Care Teams (unrecognized sec tion and content) Dialysis Chief Equipment Technician Relationship Specialty Start Date End Date Radha Durbin PA-C [address] [facility] [place] [place] [address] PCP - General Family Practice 09/20/21 Dialysis Chief Equipment Technician Relationship Specialty Start Date End Date Radha Durbin PA-C [address] [facility] [place] [address] PCP - General Family Medicine 09/20/21 Dialysis Chief Equipment Technician Relationship Specialty Start Date End Date Radha Durbin PA-C [address] [facility] [place] [address] PCP - General Family Medicine 09/20/21 Dialysis Chief Equipment Technician Relationship Specialty Start Date End Date Radha Durbin PA-C [address] [facility] [place] [address] PCP - General Family Medicine 09/20/21 Dialysis Chief Equipment Technician Relationship Specialty Start Date End Date Radha Durbin PA-C [address] [facility] [place] [address] PCP - General Family Medicine 09/20/21 Dialysis Chief Equipment Technician Relationship Specialty Start Date End Date Radha Durbin PA-C [address] [facility] [place] [address] PCP - General Family Medicine 09/20/21 Dialysis Chief Equipment Technician Relationship Specialty Start Date End Date Radha Durbin PA-C [address] [facility] [place] [address] PCP - General Family Medicine 09/20/21 Dialysis Chief Equipment Technician Relationship Specialty Start Date End Date Radha Durbin PA-C [address] [facility] [place] [address] PCP - General Family Medicine 09/20/21 Dialysis Chief Equipment Technician Relationship Specialty Start Date End Date Radha Durbin PA-C [address] [facility] [place] [address] PCP - General Family Medicine 09/20/21 Dialysis Chief Equipment Technician Relationship Specialty Start Date End Date Radha Durbin PA-C [address] [facility] [place] [address] PCP - General Family Medicine 09/20/21 Dialysis Chief Equipment Technician Relationship Specialty Start Date End Date Radha Durbin PA-C [address] [facility] [place] [address] PCP - General Family Medicine 09/20/21 Dialysis Chief Equipment Technician Relationship Specialty Start Date End Date Radha Durbin PA-C [address] [facility] [place] [address] PCP - General Family Medicine 09/20/21 Dialysis Chief Equipment Technician Relationship Specialty Start Date End Date Radha Durbin PA-C [address] [facility] [place] [address] PCP - General Family Medicine 09/20/21 Dialysis Chief Equipment Technician Relationship Specialty Start Date End Date Radha Durbin PA-C [address] [facility] [place] [address] PCP - General Family Medicine 09/20/21 Dialysis Chief Equipment Technician Relationship Specialty Start Date End Date Radha Durbin PA-C [address] [facility] [place] [address] PCP - General Family Medicine 09/20/21 Dialysis Chief Equipment Technician Relationship Specialty Start Date End Date Radha Durbin PA-C [address] [facility] [place] [address] PCP - General Family Medicine 09/20/21 Team [...] Dr. Jerrell Faith MD Attending Provider Active Dialysis Chief Equipment Technician Relationship Specialty Start Date End Date Radha Durbin PA-C [address] [place] [address] PCP - General Family Medicine 09/20/21 Dialysis Chief Equipment Technician Relationship Specialty Start Date End Date Radha Dubrin PA-C [address] [place], [place] [address] PCP - General Family Medicine 09/20/21 Dialysis Chief Equipment Technician Relationship Specialty Start Date End Date Radha Durbin PA-C [address] [place], [place] [address] PCP - General Family Medicine 09/20/21 Dialysis Chief Equipment Technician Relationship Specialty Start Date End Date Radha Durbin PA-C [address] [place], [place] [address] PCP - General Family Medicine 09/20/21 Dialysis Chief Equipment Technician Relationship Specialty Start Date End Date Radha Durbin PA-C [address] [facility] [place] [address] PCP - General Family Medicine 09/20/21 Dialysis Chief Equipment Technician Relationship Specialty Start Date End Date Radha Durbin PA-C [address] [facility] [place] [address] PCP - General Family Medicine 09/20/21 Dialysis Chief Equipment Technician Relationship Specialty Start Date End Date Radha Durbin PA-C [address] [facility] [place] [address] PCP - General Family Medicine 09/20/21 Dialysis Chief Equipment Technician Relationship Specialty Start Date End Date Radha Durbin PA-C [address] [facility] [place] [address] PCP - General Family Medicine 09/20/21 Dialysis Chief Equipment Technician Relationship Specialty Start Date End Date Brigitte Segal, COMPOUNDING SCALER.PASTRYCOOK [address] [place] [address] PCP - General Family Medicine 09/08/24 Yuliana Patton, COMPOUNDING SCALER.PASTRYCOOK [address] [facility] [place] [address] Radiology Specialist Family Medicine 07/04/24 Brigitte Segal, COMPOUNDING SCALER.PASTRYCOOK [address] [facility] [place] [address] Radiology Specialist Family Medicine 07/04/24 Dialysis Chief Equipment Technician Relationship Specialty Start Date End Date Brigitte Segal, COMPOUNDING SCALER.PASTRYCOOK [address] [facility] [place] [address] PCP - General Family Medicine 09/08/24 Yuliana Patton, COMPOUNDING SCALER.PASTRYCOOK [address] [place] [address] Radiology Specialist Family Medicine 07/04/24 Brigitte Segal, COMPOUNDING SCALER.PASTRYCOOK [address] [place] [address] [facility] Dialysis Chief Equipment Technician Relationship Specialty Start Date End Date Brigitte Segal, COMPOUNDING SCALER.PASTRYCOOK [address] [place] [address] PCP - General Family Medicine 09/08/24 Yuliana Patton, COMPOUNDING SCALER.PASTRYCOOK [address] [place] [address] [facility] 07/04/24 Brigitte Segal, COMPOUNDING SCALER.PASTRYCOOK [address] [place] [address] [facility] 07/04/24 Dialysis Chief Equipment Technician Relationship Specialty Start Date End Date Brigitte Segal, COMPOUNDING SCALER.PASTRYCOOK [address] [place] [address] PCP - General Family Medicine 09/08/24 Yuliana Patton, COMPOUNDING SCALER.PASTRYCOOK [address] [place] [address] [facility] Medicine 07/04/24 Brigitte Segal, COMPOUNDING SCALER.PASTRYCOOK [address] [place] [address] Radiology Specialist Family Medicine 07/04/24 Dialysis Chief Equipment Technician Relationship Specialty Start Date End Date Brigitte Segal, COMPOUNDING SCALER.PASTRYCOOK [address] [facility] [place] [address] PCP - General Family Medicine 09/08/24 Yuliana Patton, COMPOUNDING SCALER.PASTRYCOOK [address] [facility] [place] [address] Radiology Specialist Family Medicine 07/04/24 Brigitte Segal, COMPOUNDING SCALER.PASTRYCOOK [address] [facility] [place] [address] [facility] 07/04/24 Dialysis Chief Equipment Technician Relationship Specialty Start Date End Date Brigitte Segal, COMPOUNDING SCALER.PASTRYCOOK [address] [place] [address] PCP - General Family Medicine 09/08/24 Yuliana Patton, COMPOUNDING SCALER.PASTRYCOOK [address] [facility] [place] [address] [facility] 07/04/24 Brigitte Segal, COMPOUNDING SCALER.PASTRYCOOK [address] [facility] [place] [address] [facility] 07/04/24 Dialysis Chief Equipment Technician Relationship Specialty Start Date End Date Brigitte Segal, COMPOUNDING SCALER.PASTRYCOOK [address] [facility] [place] [address] PCP - General Family Medicine 09/08/24 Dialysis Chief Equipment Technician Relationship Specialty Start Date End Date Brigitte Segal, COMPOUNDING SCALER.PASTRYCOOK [address] [facility] [place] [address] PCP - General Family Medicine 09/08/24 Yuliana Patton, COMPOUNDING SCALER.PASTRYCOOK [address] [facility], [place] [address] [facility] 07/04/24 10/20/24 Brigitte Segal, COMPOUNDING SCALER.PASTRYCOOK [address] [facility], [place] [address] [facility] 07/04/24 10/20/24 Dialysis Chief Equipment Technician Relationship Specialty Start Date End Date Brigitte Segal, COMPOUNDING SCALER.PASTRYCOOK [address] [facility], [place] [address] PCP - General Family Medicine 09/08/24 Team [...] Start: September 08, 2024 Brigitte Suppan , EXECUTIVE VICE PRESIDENT AND CHIEF FINANCIAL OFFICER Primary Care Provider Active Start: September 08, [...] Member Role Status Dates Brigitte Suppan , EXECUTIVE VICE PRESIDENT AND CHIEF FINANCIAL OFFICER Primary Care Provider Active Start: September 08, 2024 Dr. Dejuan Brooks MD Attending Provider Active S tart: September 08, 2024 Team Status: Active Member Role Status Dates Dr. Neo Tejeda DO Emergency Provider Active Start: September 09, 2024 Brigitte Suppan , EXECUTIVE VICE PRESIDENT AND CHIEF FINANCIAL OFFICER Primary Care Provider Active Start: September 09, [...] Start: September 10, 2024 Brigitte Suppan , EXECUTIVE VICE PRESIDENT AND CHIEF FINANCIAL OFFICER Primary Care Provider Active Start: September 10, [...] Start: September 11, 2024 Brigitte Suppan , EXECUTIVE VICE PRESIDENT AND CHIEF FINANCIAL OFFICER Primary Care Provider Active Start: September 11, [...] Start: September 12, 2024 Brigittemillicent Segal , EXECUTIVE VICE PRESIDENT AND CHIEF FINANCIAL OFFICER Primary Care Provider Active Start: September 12, [...] Start: September 13, 2024 Brigitte Segal , EXECUTIVE VICE PRESIDENT AND CHIEF FINANCIAL OFFICER Primary Care Provider Active Start: September 13, [...] Start: September 14, 2024 Brigitte Segal , EXECUTIVE VICE PRESIDENT AND CHIEF FINANCIAL OFFICER Primary Care Provider Active Start: September 14, [...] Start: September 15, 2024 Brigitte Segal , EXECUTIVE VICE PRESIDENT AND CHIEF FINANCIAL OFFICER Primary Care Provider Active Start: September 15, [...] 2024 End: October 16, 2024 Kalyn Taylor EDGE STAINER MACHINE, EDGE STAINER MACHINE-C Attending Provider Active Start: October 16, 2024 [...] section and content) DATE CREATED AUTHOR 10/18/2024 [facility] DATE CREATED AUTHOR AUTHOR'S ORGANIZ ATION 11/02/2024 [facility] DATE CREATED AUTHOR AUTHOR'S ORGANIZ ATION 2024 [facility] FOR RECORDS PERTAINING TO PATIENTS WHO [...] BE BASED ON THE PRIMARY CLINICAL RECORDS. [employer] provides no warranty or guarantee of the accuracy or completeness of information in this document.
--- OUTSIDE RECORDS SUMMARY | 2025-02-08 19:52 | XMS RPT_ITS | CCD ---
Author Organization [facility] Care Team Providers Care Vp Biology Name Role Phone Quan Mackenzie MD Unavailable Mela Patel Unavailable Unavailable Anjelica Walden Unavailable Unavailable Radha Durbin PA-C Primary Care Provider [phone] Dr. Brian Mackenzie III Referring Provider Dr. Dejuan Brooks Attending Provider CHRISTINE Blount Primary Care Provider [phone] Dr. Dejuan Brooks Referring Provider Dr. Dejuan Brooks Other Provider Radha Durbin PA-C Primary Care Provider CHRISTINE Blount Primary Care Provider [phone] Dr. Dejuan Brooks Attending Provider Dr. Dejuan Brooks Referring Provider Dr. Dejuan Brooks Other Provider Radha Durbin PA-C Primary Care Provider CHRISTINE Blount Primary Care Provider [phone] Dr. Becca Nam Attending Provider MD Lewis Sutton Emergency Provider Dr. Jasmine Tan Admit Provider Dr. Jasmine Tan Other Provider Dr. Jerrell Faith Attending Provider Unavailable Dr. Jerrell Faith Other Provider Unavailable Radha Durbin PA-C Primary Care Provider [phone] Haagen MAGAZINE SUPERVISOR.MATE SHIP, Yuliana Unavailable Suppan MAGAZINE SUPERVISOR.MATE SHIP, Brigitte A Unavailable Suppan MAGAZINE SUPERVISOR.MATE SHIP, Brigitte A Primary Care Provi emilia Radha [...] Care Unavailable Suppan, Brigitte Referring Unavailable Claudia ADMINISTRATIVE COURT JUSTICE, Kalyn Attending Unavailable Radha Blount Referring Unavailable Radha Blount Primary Care Unavailable Mary Hill Attending Unavail able Suppan, Brigitte Primary Care Unavailable Taylor ADMINISTRATIVE COURT JUSTICE, Kalyn Referring Unavailable Taylor ADMINISTRATIVE COURT JUSTICE, Kalyn Attending Unavailable Haagen MAGAZINE SUPERVISOR.MATE SHIP, Yuliana Unavailable Suppan MAGAZINE SUPERVISOR.MATE SHIP, Brigitte A Unavailable SUPPAN, BRIGITTE A Attending [...] Unavailable Dr. Neo Tejeda DO Emergency Provider [phone] Suppan CLEANING SPECIALIST, Brigitte Primary Care Provider Dr. Jerrell Faith MD Admit Provider Unavailable Dr. Jerrell Faith MD Other Provider Unavailable Martínez MANUEL, Dr. Lopez Attending Provider Leanne PEDERSON, Dr. Batista Other Provider Marcell MANUEL, Dr. Allan Attending Provider Unavaila ble Dr. Lester Perdomo DO Attending Provider Todd MANUEL, Dr. Zaidi Attending Provider [phone] Martínez MANUEL, Dr. Lopez Other Provider [phone] Suppan CLEANING SPECIALIST, Brigitte Referring Provider Claudia ADMINISTRATIVE COURT JUSTICE-CKalyn Attending Provider Allergies Allergy Classification Reported Allergen(s) Allergy Type Date of Onset Reaction(s) Facility (20 sources) lisinopril; Translations: [LISINOPRIL] Drug Allergy 0 Cough [facility] Work Phone: Comment on above: cough (6 sources) sulfADIAZINE Drug Allergy 7 [facility] Work Phone: (20 sources) Sulfonamides (Antibiotic); Translations: [SULFA (SULFONAMIDE ANTIBIOTICS)] Drug Allergy 6 [facility] (4 sources) Sulfonamides (Antibiotic) Allergy to substance 2 Rash [facility] (1 source) Lisinopril Drug Allergy 5 [facility] (1 source) Sulfonamides (Antibiotic) Drug allergy (disorder) 5 [facility] Medications Current Medications Medication Drug [...] Start: 09-15-2024 take 2 tablets by mo [facility] once daily Amlodipine 5 mg tablet [...] Comment on above: Take 1 tablet by lsisa th once daily. ascorbic acid 1000 mg [...] tablets by mouth once daily. lactobacillus acidophilus [id number] unt oral capsule (20 sources) Start: 08-04-2023 [...] for pain and inflammation with food NAPROXEN [id number] Anjelica Walden niacin 500 mg extended release [...] 12:00am Start: 05-08-2017 take 1 tablet by [facility] twice daily NIACIN 500 MG TABS One tablet by mouth twice daily NIACIN [id number] Anjelicashaheed Walden Start: 03-17-2014 End: 09-09-2019 take [...] on above: Take 1 capsule by mo [facility] once daily. 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 [facility] During your visit today, we recorded the following information about you: Jaqueline Andre RN 10/31/2024 3:35 PM Signed Palliative Medicine Referral Assessment Referral Accepted: No, Reason for Denial: Chart reviewed, pal med order meant for [facility] in [place]. Jaqueline Andre RN October 31, 2024 Allergies As of Date: 10/31/2024 Noted Allergy Reaction LISINOPRIL 12/28/2009 3 - Cough SULFA (SULFONAMIDE ANTIBIOTICS) 03/09/2006 4 - Hives Date Reviewed: 09/19/2024 Reviewed by: Shirley Rivera MA - Fully Assessed Reason for Visit: [id number] [Other] Initial Consult [665] Prescriptions as of [...] chronic blood los*01/27/2020 Coronary artery disease involving [place] rabago*12/22/2020 S/P primary angioplasty with coronary stent [Z9*12/22/2020 Fall from standing [W19.XXXA] 09/20/2021 Encounter for support and coordination of trans*08/11/2023 Acute respiratory failure with hypoxia (HCC) [J*09/25/2023 Encounter Status:Closed by JAQUELINE ANDRE on 10/31/24 [facility] 10-27-2024 [facility] CLARK [facility] ([id number]) 1935 M Date Time Provider Department 10/27/24 [facility] During your visit today, we recorded the following information about you: Amita Kim LPN 10/27/2024 3:57 PM Skyler Madrigal with [facility] calls to report family is requesting order for palliative care. [facility] [place]. Rohan also reports he saw pt today and is extending nurse to once a week x 2 weeks. Pt will then be discharged from Nursing. Rohan reports that Pulmonary gave new dx for pt of COPD and pulmonary htn. HIWOT Mariee Jacqueline A, APRN.MATE SHIP 10/27/2024 4:52 PM Signed Please ask patient [...] Signed Spoke to Paulino (not Rohan) with [facility]. Paulino reports that he did get a [...] infection (HCC) [J44.0] Order(s):CONSULT TO PALLIATIVE CARE [[id number]] Order #: [id number]: 1 FUTURE Prescriptions as of 10/28/2024 - [...] Meds Comments as of 04/18/2021: Taking Saw [place]. Problem List As Of Date 10/27/2024 Noted [...] chronic blood los*01/27/2020 Coronary artery disease involving [place] rabago*12/22/2020 S/P primary angioplasty with coronary stent [Z9*12/22/2020 Fall from standing [W19.XXXA] 09/20/2021 Encounter for support an (more content not included)... Normal [facility] Pulmonary Visit Reporton Pulmonary Visit Report [facility] Medicine of [address] [place] [address] OFFICE VISIT Date of Service: 10/16/24 MR#: [id number] Acct: [id number] Name: CLARK LYLES Rep #: [id number] : 1935 Provider: MALIKA Taylor Age/Sex: 88/M [place] [facility] Status: Signed Assessment and Plan Assessment and [...] for hospital follow-up after recent hospitalization at [facility] from September 07 through September 15, [...] H Pu (more content not included)... Normal [facility] 10-15-2024 [facility] Telephone ([facility]) CLARK LYLES ([id number]) 1935 M Date Time Provider Department 10/15/24 [facility] During your visit today, we recorded the following information about you: Radha Green, RN 10/15/2024 3:04 PM Signed Paulino- nurse- [facility]- reports he did patient eval today and will extend [facility] visits to 1 x week for 2 [...] Meds Comments as of 04/18/2021: Taking [place]. Problem List As Of Date 10/15/2024 Noted [...] chronic blood los*01/27/2020 Coronary artery disease involving [place] rabago*12/22/2020 S/P primary angioplasty with coronary stent [Z9*12/22/2020 Fall from standing [W19.XXXA] 09/20/2021 Encounter for support and coordination of trans*08/11/2023 Acute respiratory failure with hypoxia (HCC) [J*09/25/2023 Encounter Status:Closed by Radha GREEN on 10/30/24 [facility] 10-03-2024 [facility] Telephone ([facility]) CLARK LYLES ([id number]) 1935 M Date Time Provider Department 10/03/24 BRIGITTE SEGAL During your visit today, we recorded the following information about you: Mary Balderas, RN 10/03/2024 2:54 PM Signed Jamie with [facility] is calling due to he saw patient [...] needs called back with information. Brigitte Segal APRN.MATE SHIP 10/03/2024 2:59 PM Signed Yes. Please increase O2 to 4l. Thank you for the recert. Shirley Rivera MA 10/03/2024 3:56 PM Signed Detailed message left on secure line [facility] Shirley Rivera MA October 03, [...] Meds Comments as of 04/18/2021: Taking [place]. Problem List As Of Date 10/03/2024 Noted [...] chronic blood los*01/27/2020 Coronary artery disease involving [place] rabago*12/22/2020 S/P primary angioplasty with coronary stent [Z9*12/22/2020 Fall from standing [W19.XXXA] 09/20/2021 Encounter for support and coordination of trans*08/11/2023 Acute respiratory failure with hypoxia (HCC) [J*09/25/2023 Encounter Status:Closed by SHIRLEY RIVERA on 10/03/24 [facility] CNOVon 09-19-2024 CNOV Office Visit ([facility] ) CLARK LYELS ([id number]) 1935 M Date Time Provider Department 09/19/24 2:40 PM [facility] During your visit today, we recorded the following information about you: Temperature Pulse Blood pressure Weight 98.7 degrees 80/minute 128/62 72.6 kg Brigitte Segal APRN.MATE SHIP 09/19/2024 3:25 PM Signed This is a [...] lipoma performed by Dr. Robe Mackenzie at [facility] REVSC OPN/PRQ FEM/POP W/STNT/ANGIOP VSL 03-18-14 RPR [...] 5. [place] (more content not included)... Normal [facility] Mikey 09-19-2024 JANETN Telephone ([facility]) CLARK LYLES Mega ([id number]) 1935 M Date Time Provider Department 09/19/24 BRIGITTE SEGAL During your visit today, we recorded the following information about you: Whit Sheridan RN 09/19/2024 2:23 PM Signed Rohan calling with [facility] Physical Therapy with plan of care for patient. Pt will be seen 1x per week for 4 weeks for functional mobility training. No call back needed if provider agreeable. ZACKARY Vines Jacqueline A, MAGAZINE SUPERVISOR.[facility] 09/19/2024 3:33 PM Signed Sounds good. Agree. [...] Meds Comments as of 04/18/2021: Taking Saw [place]. Problem List As Of Date 09/19/2024 Noted [...] chronic blood los*01/27/2020 Coronary artery disease involving [place] rabago*12/22/2020 S/P primary angioplasty with coronary stent [Z9*12/22/2020 Fall from standing [W19.XXXA] 09/20/2021 Encounter for support and coordination of trans*08/11/2023 Acute respiratory failure with hypoxia (HCC) [J*09/25/2023 Encounter Status:Closed by BRIGITTE SEGAL on 09/19/24 [facility] Mikey 09-17-2024 CNPN Telephone ([facility]) CLARK LYLES ([id number]) 1935 M Date Time Provider Department 09/17/24 BRIGITTE SEGAL During your visit today, we recorded the following information about you: Tracy Cedillo RN 09/17/2024 12:57 PM Signed Hellen calling from [facility] to report plan of care for patient and mcc will visit patient 1 time a week for 1 week and 2 times a week for 2 weeks. Senior [facility] will work with patient on wound care (patient has skin tear to right elbow) and management of O2 levels. Hellen had no orders for wound care. Hellen cleaned wound and put on Vaseline gauze and band aid. Hellen also notes that patient is on Oxygen and thought that he was only going to be on oxygen for a week. 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 Hellen did not know if provider wanted to address Oxygen use. Patient is scheduled to see PCP 09/19/2024. No call back needed unless there are questions. ZACKARY Tristan Jacqueline A, SHUKRI.MATE SHIP 09/18/2024 8:09 AM Signed Patient will need to stay on oxygen until he follows up with pulmonary. I have not seen him since February 2024 therefore I am not really able to shed any light on his oxygen use. Not common to use oxygen for only a week. Tracy Cedillo RN 09/18/2024 9:53 AM Signed Haley from [facility] calls and reports that granddaughter had checked [...] provider tomorrow 09/19/2024. Please Contact Haley back [phone]. ZACKARY Tristan Jacqueline A, MAGAZINE SUPERVISOR.MATE SHIP 09/18/2024 10:41 AM Signed Absolutely keep at [...] Date Reviewed: 03/27/2024 Reviewed by: Brigitte Segal APRN.MATE SHIP - Fully Assessed Reason for Visit: Senior Care Plan of Care [Other] Prescriptions as of [...] Meds Comments as of 04/18/2021: Taking Saw [place]. Problem List As Of Date 09/17/2024 Noted [...] chronic blood los*01/27/2020 Coronary artery disease involving [place] rabago*12/22/2020 S/P primary angioplasty with coronary stent [Z9*12/22/2020 Fall from standing [W19.XXXA] 09/20/2021 Encounter for support and coordination of trans*08/11/2023 Acute respiratory failure with hypoxia (HCC) [J*09/25/2023 Encounter Status:Closed by TRACY CEDILLO on 09/22/24 [facility]15[facility]20[facility] ([id number]) 1935 M Date Time Provider Department 09/15/24 [facility] During your visit today, we recorded the following information about you: Tracy Cedillo RN 09/15/2024 3:32 PM Signed Rochelle from [facility] calls and states that patient is being discharged from [facility] PCU on 09/05/2024 with the diagnosis of hypoxia and acute respiratory failure. Rochelle asking if provider willing to follow patient with orders for mcc, physical therapy, occupational therapy and social work. If agreeable please give Rochelle a call back . Thank you, ZACKARY Tristan Jacqueline A, APRN.[facility] 09/15/2024 4:41 PM Signed Yes. Of course Brigitte Segal APRN.MATE SHIP 09/15/2024 5:31 PM Signed Patient is an [...] Signed Detailed message left for Rochelle at [facility] with verbal agreement of plan. Shirley Rivera MA September 16, 2024 9:12 AM Allergies As of Date: 09/15/2024 Noted Allergy Reaction LISINOPRIL 12/28/2009 3 - Cough SULFA (SULFONAMIDE ANTIBIOTICS) 03/09/2006 4 - Hives Date Reviewed: 03/27/2024 Reviewed by: Brigitte Segal APRN.MATE SHIP - Fully Assessed Reason for Visit: Home [...] Meds Comments as of 04/18/2021: Taking Saw [place]. Problem List As Of Date 09/15/2024 Noted [...] chronic blood los*01/27/2020 Coronary artery disease involving [place] rabago*12/22/2020 S/P primary angioplasty with coronary stent [Z9* (more content not included)... Normal [facility] Discharge Instructionon 08-30 Discharge Instruction [facility] Medical Records Department [address] [place] [address] Instructions for Home/Discharge Instructions 09/15/24905 MR#: [id number] Acct: [id number] Name: CLARK LYLES Rep #: [id number] : 1935 88 From: John Soliz MD PCP: Brigitte Segal, CLEANING SPECIALIST Status:ADM IN Discharge Instructions Diet Discharge Diet: [...] Care 09/15/24 1343 John Soliz MD CC: CLEANING SPECIALIST Brigitte Segal; Dr. Jerrell Faith MD; Dr. Lester Perdomo DO Signed Normal [facility] Serum or plasma trough vanco mycin levelOrdered By: Jerrell Monterroso on 09-15-2024 Vancomycin trough [Mass/Vol] 16.5 ug/mL High 5.0-15.0 [facility] Comment on above: VANCOMYCIN STANDARED DRUG THERAPY TROUGH LEVEL: 5.0 - 15.0 mg/L VANCOMYCIN HIGH INTENSITY THERAPY TROUGH LEVEL: 15.0 - 20.0 mg/L High Intensity therapy recommended for serious lifethreatening infections include:- Igsuzpjofd-Fffhxuuwwqlp-Arrzwojgg (Ventilator/Healtcare Associated)-Sepsis PLEASE CONTACT PHARMACY SERVICES (#[id number]) FOR INTERPRETATIONOF RESULTS. Vancomycin, Trough Levelon 0 09-15-2024 VANCO, TROUGH 16.5 ug/mL High 5.0-15.0 [facility] Comment on above: Order Comment: Comme nts: Trough to be drawn 30 mins prior to scheduled [id number] Result Comment: VANC OMYCIN STANDARED DRUG THERAPY TROUGH LEVEL: 5.0 - 15.0 mg/L VANCOMYCIN HIGH INTENSITY THERAPY TROUGH LEVEL: 15.0 - 20.0 mg/L High Intensity therapy recommended for serious life threatening infections include: - Meningitis -Endocarditis -Pneumonia (Ventilator/Healtcare Associated) -Sepsis PLEASE CONTACT PHARMACY SERVICES (#[id number]) FOR INTERPRETATION OF RESULTS. Performed By: #### L 100.0100, L500.2500 #### [facility] [address] [place], [address] Absolute lymphocyte countOrd ered By: Lester Perdomo on 09-14-2024 Lymphocytes Auto (Unsp spec) [#/Vol] 1.09 10*3/uL 0.83-4.51 [facility] Absolute neutrophil countOrd ered By: Lester Perdomo on 09-14-2024 Neutrophils (Bld) [#/Vol] 12.0 10*3/uL High 2.0-7.7 [facility] Automated lymphocyte count a s percentage of total leukocytesOrdered By: Lester Perdomo on 09-14-2024 Lymphocytes/100 WBC Auto (Unsp spec) 7.3 % Low 19-41 [facility] Basic Metabolic Profile (BMP )on 09-14-2024 BUN/CRE 44.2 RATIO High 10-20 [facility] Comment on above: Performed By: #### L 100.0100, L500.2500 #### [facility] [address] [place], [address] CA,Total 8.6 mg/dL Normal 8.5-10.1 [facility] Comment on above: Performed By: #### L 100.0100, L500.2500 #### [facility] [address] [place], [address] Chloride [Moles/Vol] 106 mmol/L Normal 98-[address] [facility] Comment on above: Performed By: #### L 100.0100, L500.2500 #### [facility] [address] [place], [address] CO2 [Moles/Vol] 27.0 mmol/L Normal 21.0-32.0 [facility] Comment on above: Performed By: #### L 100.0100, L500.2500 #### [facility] [address] [place], [address] Creatinine [Mass/Vol] 0.84 mg/dL Normal 0.70-1.30 [facility] Comment on above: Result Comment: The validity of the calculated GFR GFRAA in patients over 70 years has not been determined. Clinical correlation is essential. Performed By: #### L 100.0100, L500.2500 #### [facility] [address] [place], [address] ECRCL 63.04 ml/min Normal [facility] Comment on above: Performed By: #### L 100.0100, L500.2500 #### [facility] [address] [place], [address] EST GFR - AA 112 mL/min Normal >60 [facility] Comment on above: Result Comment: Afri can Cymraes GFR Calc Performed By: #### L 100.0100, L500.2500 #### [facility] [address] [place], [address] GAP 6 Normal 5-15 [facility] Comment on above: Performed By: #### L 100.0100, L500.2500 #### [facility] [address] [place], [address] GFR/1.73 sq M.predicted among non-blacks MDRD (S/P/Bld) [Vol rate/Area] 92 mL/min/{1.73_m2} Normal >60 [facility] Comment on above: Result Comment: Non- GFR Calc Performed By: #### L 100.0100, L500.2500 #### [facility] [address] [place], [address] Glucose [Mass/Vol] 156 mg/dL High 74-106 [facility] Comment on above: Result Comment: Fast ing Glucose result greater than or equal to 126 mg/dL suggests DIABETES MELLITUS per A.D.A. criteria. Performed By: #### L 100.0100, L500.2500 #### [facility] [address] [place], [address] Potassium [Moles/Vol] 3.4 mmol/L Low 3.5-5.1 [facility] Comment on above: Performed By: #### L 100.0100, L500.2500 #### [facility] [address] [place], [address] Sodium [Moles/Vol] 139 mmol/L Normal 136-145 [facility] Comment on above: Performed By: #### L 100.0100, L500.2500 #### [facility] [address] [place], [address] Urea nitrogen [Mass/Vol] 37 mg/dL High 7-18 [facility] Comment on above: Performed By: #### L 100.0100, L500.2500 #### [facility] [address] [place], [address] Basophil percentageOrdered B y: Lester Perdomo on 09-14-2024 Basophils/100 WBC (Bld) 0.1 % 0-1 [facility] Blood urea nitrogen (BUN)/cr eatinine ratioOrdered By: Lester Perdomo on 09-14-2024 Urea nitrogen/Creatinine [Mass ratio] 44.2 mg/mg High 10-20 [facility] CBC W/Diff, Automatedon 08-30 REACTIVE LYMPH 1+ Normal [facility] Comment on above: Performed By: #### L 100.0100, L500.2500 #### [facility] [address] [place], [address] Carbon dioxide measurementOr dered By: Lester Perdomo on 09-14-2024 CO2 [Moles/Vol] 27.0 mmol/L 21.0-32.0 [facility] Chloride measurementOrdered By: Lester Perdomo on 09-14-2024 Chloride [Moles/Vol] 106 mmol/L 98-[address] [facility] Eosinophil percentageOrdered By: Lester Perdomo on 09-14-2024 Eosinophils/100 WBC (Bld) 0.3 % 0-5 [facility] Erythrocyte distribution wid th ratioOrdered By: Lester Perdomo on 09-14-2024 Erythrocyte distribution width (RBC) [Ratio] 16.1 % High 11.6-14.6 [facility] Erythrocyte distribution wid th standard deviationOrdered By: Lester Perdomo on 09-14-2024 Erythrocyte distribution width (RBC) [Ratio] 56.8 fl High 35.1-43.9 [facility] Glomerular filtration rate ( GFR) estimationOrdered By: Lester Perdomo on 09-14-2024 GFR/1.73 sq M.predicted among non-blacks MDRD (S/P/Bld) [Vol rate/Area] 92 mL/min/{1.73_m2} >60 [facility] Comment on above: Non- GFR Calc Glucose measurementOrdered B y: Lester Perdomo on 09-14-2024 Glucose [Mass/Vol] 156 mg/dL High 74-106 [facility] Comment on above: Fasting Glucose resu lt greater than or equal to 126 mg/dL suggests DIABETES MELLITUS per A.D.A. criteria. Hematocrit Auto (Bld) [Volum e fraction]Ordered By: Lester Perdomo on 09-14-2024 Hematocrit (Bld) [Volume fraction] 43.5 % 40-54 [facility] Hemoglobin measurementOrdere d By: Lester Perdomo on 09-14-2024 Hemoglobin (Bld) [Mass/Vol] 14.3 g/dL 13.0-16.5 [facility] Immature granulocytes/100 WB C Auto (Bld)Ordered By: Lester Perdomo on 09-14-2024 Immature granulocytes/100 WBC (Bld) 4.800 % High 0.0-0.9 [facility] Comment on above: IG% - Immature Granu locytes (promyelocytes, myelocytes and metamyelocytes) > 1% indicates that a LEFT SHIFT is Present. MCV (mean corpuscular volume ) determinationOrdered By: Lester Perdomo on 09-14-2024 MCV (RBC) [Entitic vol] 96.2 fL High 80-94 [facility] Mean corpuscular hemoglobin (MCH) determinationOrdered By: Lester Perdomo on 09-14-2024 MCH (RBC) [Entitic mass] 31.6 pg 27.0-32.0 [facility] Mean corpuscular hemoglobin concentration (MCHC) determinationOrdered By: Lester Perdomo on 09-14-2024 MCHC (RBC) [Mass/Vol] 32.9 g/dL 32-36 [facility] Mean platelet volume determi nationOrdered By: Lester Perdomo on 09-14-2024 Platelet mean volume (Bld) [Entitic vol] 11.7 fL 6.2-12.0 [facility] Monocyte percentageOrdered B y: Lester Perdomo on 09-14-2024 Monocytes/100 WBC (Bld) 7.0 % 0-10 [facility] Neutrophil percentageOrdered By: Lester Perdomo on 09-14-2024 Neutrophils/100 WBC (Bld) 80.5 % High 47-70 [facility] Nucleated red blood cell per centageOrdered By: Lester Perdomo on 09-14-2024 Nucleated RBC/100 WBC (Bld) [Ratio] 0 % 0-5 [facility] Platelet countOrdered By: Geovany Perdomo on 09-14-2024 Platelets (Bld) [#/Vol] 152 10*3/uL 150-450 [facility] Potassium measurementOrdered By: Lester Perdomo on 09-14-2024 Potassium [Moles/Vol] 3.4 mmol/L Low 3.5-5.1 [facility] RBC Auto (Bld) [#/Vol]Ordere d By: Lester Perdomo on 09-14-2024 RBC (Bld) [#/Vol] 4.52 10*6/uL Low 4.6-6.2 [place] Serum anion gap measurementO rdered By: Lester Perdomo on 09-14-2024 Anion gap [Moles/Vol] 6 mmol/L 5-15 [facility] Serum or plasma calcium nichole urement (mass/volume)Ordered By: Lester Perdomo on 09-14-2024 Calcium [Mass/Vol] 8.6 mg/dL 8.5-10.1 [facility] Serum or plasma creatinine m easurement (mass/volume)Ordered By: Lester Perdomo on 09-14-2024 Creatinine [Mass/Vol] 0.84 mg/dL 0.70-1.30 [facility] Comment on above: The validity of the calculated GFR & GFRAA in patients over 70 years has not been determined. Clinical correlation is essential. Serum or plasma urea nitroge n measurement (mass/volume)Ordered By: Lester Perdomo on 09-14-2024 Urea nitrogen [Mass/Vol] 37 mg/dL High 7-18 [facility] Sodium levelOrdered By: Lester Perdomo on 09-14-2024 Sodium [Moles/Vol] 139 mmol/L 136-145 [facility] White blood cell (WBC) count Ordered By: Lester Perdomo on 09-14-2024 WBC (Bld) [#/Vol] 14.9 10*3/uL High 4.4-11.0 [place] Basic Metabolic Profile (BMP )on 09-13-2024 BUN/CRE 30.9 RATIO High 10-20 [facility] Comment on above: Performed By: #### L 100.0100, L500.2500 #### [facility] [address] [place], [address] CA,Total 8.6 mg/dL Normal 8.5-10.1 [facility] Comment on above: Performed By: #### L 100.0100, L500.2500 #### [facility] [address] [place], [address] Chloride [Moles/Vol] 103 mmol/L Normal 98-[address] [facility] Comment on above: Performed By: #### L 100.0100, L500.2500 #### [facility] [address] [place], [address] CO2 [Moles/Vol] 33.0 mmol/L High 21.0-32.0 [facility] Comment on above: Performed By: #### L 100.0100, L500.2500 #### [facility] [address] [place], [address] Creatinine [Mass/Vol] 1.10 mg/dL Normal 0.70-1.30 [facility] Comment on above: Result Comment: The validity of the calculated GFR GFRAA in patients over 70 years has not been determined. Clinical correlation is essential. Performed By: #### L 100.0100, L500.2500 #### [facility] [address] [place], [address] ECRCL 49.57 ml/min Normal [facility] Comment on above: Performed By: #### L 100.0100, L500.2500 #### [facility] [address] [place], [address] EST GFR - AA 82 mL/min Normal >60 [facility] Comment on above: Result Comment: Afri can Cymraes GFR Calc Performed By: #### L 100.0100, L500.2500 #### [facility] [address] [place], [address] GAP 3 Low 5-15 [facility] Comment on above: Performed By: #### L 100.0100, L500.2500 #### [facility] [address] [place], [address] GFR/1.73 sq M.predicted among non-blacks MDRD (S/P/Bld) [Vol rate/Area] 67 mL/min/{1.73_m2} Normal >60 [facility] Comment on above: Result Comment: Non- GFR Calc Performed By: #### L 100.0100, L500.2500 #### [facility] [address] [place], [address] Glucose [Mass/Vol] 168 mg/dL High 74-106 [facility] Comment on above: Result Comment: Fast ing Glucose result greater than or equal to 126 mg/dL suggests DIABETES MELLITUS per A.D.A. criteria. Performed By: #### L 100.0100, L500.2500 #### [facility] [address] [place], [address] Potassium [Moles/Vol] 3.3 mmol/L Low 3.5-5.1 [facility] Comment on above: Performed By: #### L 100.0100, L500.2500 #### [facility] [address] [place], [address] Sodium [Moles/Vol] 139 mmol/L Normal 136-145 [facility] Comment on above: Performed By: #### L 100.0100, L500.2500 #### [facility] [address] [place], [address] Urea nitrogen [Mass/Vol] 34 mg/dL High 7-18 [facility] Comment on above: Performed By: #### L 100.0100, L500.2500 #### [facility] [address] [place], [address] CBC W/Diff, Automatedon 02- Absolute Lymph 0.43 X10 3/uL Low 0.83-4.51 [facility] Comment on above: Performed By: #### L 100.0100, L500.2500 #### [facility] [address] [place], [address] Absolute Neut 12.2 X10 3/uL High 2.0-7.7 [facility] Comment on above: Performed By: #### L 100.0100, L500.2500 #### [facility] [address] [place], [address] Basophils/100 WBC (Bld) 0.7 % Normal 0-1 [facility] Comment on above: Performed By: #### L 100.0100, L500.2500 #### [facility] [address] [place], [address] Eosinophils/100 WBC (Bld) 0.0 % Normal 0-5 [facility] Comment on above: Performed By: #### L 100.0100, L500.2500 #### [facility] [address] [place], [address] Erythrocyte distribution width (RBC) [Ratio] 15.8 % High 11.6-14.6 [facility] Comment on above: Performed By: #### L 100.0100, L500.2500 #### [facility] [address] [place], [address] Hematocrit (Bld) [Volume fraction] 45.7 % Normal 40-54 [facility] Comment on above: Performed By: #### L 100.0100, L500.2500 #### [facility] [address] [place], [address] Hemoglobin (Bld) [Mass/Vol] 15.5 g/dL Normal 13.0-16.5 [facility] Comment on above: Performed By: #### L 100.0100, L500.2500 #### [facility] [address] [place], [address] IG% 2.600 High 0.0-0.9 [facility] Comment on above: Result Comment: IG% - Immature Granulocytes (promyelocytes, myelocytes and metamyelocytes) > 1% indicates that a LEFT SHIFT is Present. Performed By: #### L 100.0100, L500.2500 #### [facility] [address] [place], [address] Lymphocytes/100 WBC (Bld) 3.2 % Low 19-41 [facility] Comment on above: Performed By: #### L 100.0100, L500.2500 #### [facility] [address] [place], [address] MCH (RBC) [Entitic mass] 32.0 pg Normal 27.0-32.0 [facility] Comment on above: Performed By: #### L 100.0100, L500.2500 #### [facility] [address] [place], [address] MCHC (RBC) [Mass/Vol] 33.9 g/dL Normal 32-36 [facility] Comment on above: Performed By: #### L 100.0100, L500.2500 #### [facility] [address] [place], [address] MCV (RBC) [Entitic vol] 94.4 fL High 80-94 [facility] Comment on above: Performed By: #### L 100.0100, L500.2500 #### [facility] [address] [place], [address] Monocytes/100 WBC (Bld) 3.8 % Normal 0-10 [facility] Comment on above: Performed By: #### L 100.0100, L500.2500 #### [facility] [address] [place], [address] Neutrophils/100 WBC (Bld) 89.7 % High 47-70 [facility] Comment on above: Performed By: #### L 100.0100, L500.2500 #### [facility] [address] [place], [address] Nucleated RBC (Bld) [#/Vol] 0 10*3/uL Normal 0-5 [facility] Comment on above: Performed By: #### L 100.0100, L500.2500 #### [facility] [address] [place], [address] Platelet mean volume (Bld) [Entitic vol] 11.4 fL Normal 6.2-12.0 [facility] Comment on above: Performed By: #### L 100.0100, L500.2500 #### [facility] [address] [place], [address] Platelets (Bld) [#/Vol] 162 10*3/uL Normal 150-450 [facility] Comment on above: Performed By: #### L 100.0100, L500.2500 #### [facility] [address] [place], [address] RBC (Bld) [#/Vol] 4.84 10*6/uL Normal 4.6-6.2 [place] Comment on above: Performed By: #### L 100.0100, L500.2500 #### [facility] [address] [place], [address] RDW SD 54.8 fl High 35.1-43.9 [facility] Comment on above: Performed By: #### L 100.0100, L500.2500 #### [facility] [address] [place], [address] WBC (Bld) [#/Vol] 13.5 10*3/uL High 4.4-11.0 [place] Comment on above: Performed By: #### L 100.0100, L500.2500 #### [facility] [address] [place], [address] Vancomycin, Trough Levelon 0 - VANCO, TROUGH 17.0 ug/mL High 5.0-15.0 [facility] Comment on above: Order Comment: Comme nts: DRAW 30 MIN PRIOR TO DOSE 0330 Result Comment: VANC OMYCIN STANDARED DRUG THERAPY TROUGH LEVEL: 5.0 - 15.0 mg/L VANCOMYCIN HIGH INTENSITY THERAPY TROUGH LEVEL: 15.0 - 20.0 mg/L High Intensity therapy recommended for serious life threatening infections include: - Meningitis -Endocarditis -Pneumonia (Ventilator/Healtcare Associated) -Sepsis PLEASE CONTACT PHARMACY SERVICES (#[id number]) FOR INTERPRETATION OF RESULTS. Performed By: #### L 501.8820 #### [facility] [address] [place], [address] Basic Metabolic Profile (BMP )on 09-12-2024 BUN/CRE 33.2 RATIO High 10-20 [facility] Comment on above: Performed By: #### L 100.0100, L500.2500 #### [facility] [address] [place], [address] CA,Total 8.5 mg/dL Normal 8.5-10.1 [facility] Comment on above: Performed By: #### L 100.0100, L500.2500 #### [facility] [address] [place], [address] Chloride [Moles/Vol] 105 mmol/L Normal 98-[address] [facility] Comment on above: Performed By: #### L 100.0100, L500.2500 #### [facility] [address] [place], [address] CO2 [Moles/Vol] 28.0 mmol/L Normal 21.0-32.0 [facility] Comment on above: Performed By: #### L 100.0100, L500.2500 #### [facility] [address] [place], [address] Creatinine [Mass/Vol] 0.96 mg/dL Normal 0.70-1.30 [facility] Comment on above: Result Comment: The validity of the calculated GFR GFRAA in patients over 70 years has not been determined. Clinical correlation is essential. Performed By: #### L 100.0100, L500.2500 #### [facility] [address] [place], [address] ECRCL 56.80 ml/min Normal [facility] Comment on above: Performed By: #### L 100.0100, L500.2500 #### [facility] [address] [place], [address] EST GFR - AA 95 mL/min Normal >60 [facility] Comment on above: Result Comment: Afri can Cymraes GFR Calc Performed By: #### L 100.0100, L500.2500 #### [facility] [address] [place], [address] GAP 7 Normal 5-15 [facility] Comment on above: Performed By: #### L 100.0100, L500.2500 #### [facility] [address] [place], [address] GFR/1.73 sq M.predicted among non-blacks MDRD (S/P/Bld) [Vol rate/Area] 78 mL/min/{1.73_m2} Normal >60 [facility] Comment on above: Result Comment: Non- GFR Calc Performed By: #### L 100.0100, L500.2500 #### [facility] [address] [place], [address] Glucose [Mass/Vol] 156 mg/dL High 74-106 [facility] Comment on above: Result Comment: Fast ing Glucose result greater than or equal to 126 mg/dL suggests DIABETES MELLITUS per A.D.A. criteria. Performed By: #### L 100.0100, L500.2500 #### [facility] [address] [place], [address] Potassium [Moles/Vol] 3.4 mmol/L Low 3.5-5.1 [facility] Comment on above: Performed By: #### L 100.0100, L500.2500 #### [facility] [address] [place], [address] Sodium [Moles/Vol] 140 mmol/L Normal 136-145 [facility] Comment on above: Performed By: #### L 100.0100, L500.2500 #### [facility] [address] [place], [address] Urea nitrogen [Mass/Vol] 32 mg/dL High 7-18 [facility] Comment on above: Performed By: #### L 100.0100, L500.2500 #### [facility] [address] [place], [address] CBC W/Diff, Automatedon 02-08 02-2024 Absolute Lymph 0.46 X10 3/uL Low 0.83-4.51 [facility] Comment on above: Performed By: #### L 100.0100, L500.2500 #### [facility] [address] [place], [address] Absolute Neut 11.3 X10 3/uL High 2.0-7.7 [facility] Comment on above: Performed By: #### L 100.0100, L500.2500 #### [facility] [address] [place], [address] Basophils/100 WBC (Bld) 0.2 % Normal 0-1 [facility] Comment on above: Performed By: #### L 100.0100, L500.2500 #### [facility] [address] [place], [address] Eosinophils/100 WBC (Bld) 0.0 % Normal 0-5 [facility] Comment on above: Performed By: #### L 100.0100, L500.2500 #### [facility] [address] [place], [address] Erythrocyte distribution width (RBC) [Ratio] 15.9 % High 11.6-14.6 [facility] Comment on above: Performed By: #### L 100.0100, L500.2500 #### [facility] [address] [place], [address] Hematocrit (Bld) [Volume fraction] 44.7 % Normal 40-54 [facility] Comment on above: Performed By: #### L 100.0100, L500.2500 #### [facility] [address] [place], [address] Hemoglobin (Bld) [Mass/Vol] 14.9 g/dL Normal 13.0-16.5 [facility] Comment on above: Performed By: #### L 100.0100, L500.2500 #### [facility] [address] [place], [address] IG% 1.700 High 0.0-0.9 [facility] Comment on above: Result Comment: IG% - Immature Granulocytes (promyelocytes, myelocytes and metamyelocytes) > 1% indicates that a LEFT SHIFT is Present. Performed By: #### L 100.0100, L500.2500 #### [facility] [address] [place], [address] Lymphocytes/100 WBC (Bld) 3.6 % Low 19-41 [facility] Comment on above: Performed By: #### L 100.0100, L500.2500 #### [facility] [address] [place], [address] MCH (RBC) [Entitic mass] 31.6 pg Normal 27.0-32.0 [facility] Comment on above: Performed By: #### L 100.0100, L500.2500 #### [facility] [address] [place], [address] MCHC (RBC) [Mass/Vol] 33.3 g/dL Normal 32-36 [facility] Comment on above: Performed By: #### L 100.0100, L500.2500 #### [facility] [address] [place], [address] MCV (RBC) [Entitic vol] 94.7 fL High 80-94 [facility] Comment on above: Performed By: #### L 100.0100, L500.2500 #### [facility] [address] [place], [address] Monocytes/100 WBC (Bld) 4.7 % Normal 0-10 [facility] Comment on above: Performed By: #### L 100.0100, L500.2500 #### [facility] [address] [place], [address] Neutrophils/100 WBC (Bld) 89.8 % High 47-70 [facility] Comment on above: Performed By: #### L 100.0100, L500.2500 #### [facility] [address] [place], [address] Nucleated RBC (Bld) [#/Vol] 0 10*3/uL Normal 0-5 [facility] Comment on above: Performed By: #### L 100.0100, L500.2500 #### [facility] [address] [place], [address] Platelet mean volume (Bld) [Entitic vol] 11.5 fL Normal 6.2-12.0 [facility] Comment on above: Performed By: #### L 100.0100, L500.2500 #### [facility] [address] [place], [address] Platelets (Bld) [#/Vol] 165 10*3/uL Normal 150-450 [facility] Comment on above: Performed By: #### L 100.0100, L500.2500 #### [facility] [address] [place], [address] RBC (Bld) [#/Vol] 4.72 10*6/uL Normal 4.6-6.2 [place] Comment on above: Performed By: #### L 100.0100, L500.2500 #### [facility] [address] [place], [address] RDW SD 55.7 fl High 35.1-43.9 [facility] Comment on above: Performed By: #### L 100.0100, L500.2500 #### [facility] [address] [place], [address] WBC (Bld) [#/Vol] 12.6 10*3/uL High 4.4-11.0 [place] Comment on above: Performed By: #### L 100.0100, L500.2500 #### [facility] [address] [place], [address] Respiratory Cultureon 2024 RESPC Mixed normal respira tory argenis. No Haemophilus, Streptococcus pneumoniae, beta-hemolytic Streptococcus or Staphylococcus aureus isolated. Normal [facility] Comment on above: Performed By: #### M 100.2400, M100.2000 ####[facility] [id number] [place], [address] CBC W/Diff, Automatedon 08-30 Absolute Lymph 0.43 X10 3/uL Low 0.83-4.51 [facility] Comment on above: Performed By: #### L 100.0100 #### [facility] [address] [place], [address] Absolute Neut 11.6 X10 3/uL High 2.0-7.7 [facility] Comment on above: Performed By: #### L 100.0100 #### [facility] [address] [place], [address] Basophils/100 WBC (Bld) 0.1 % Normal 0-1 [facility] Comment on above: Performed By: #### L 100.0100 #### [facility] [address] [place], [address] Eosinophils/100 WBC (Bld) 0.0 % Normal 0-5 [facility] Comment on above: Performed By: #### L 100.0100 #### [facility] [address] [place], [address] Erythrocyte distribution width (RBC) [Ratio] 16.1 % High 11.6-14.6 [facility] Comment on above: Performed By: #### L 100.0100 #### [facility] [address] [place], [address] Hematocrit (Bld) [Volume fraction] 44.9 % Normal 40-54 [facility] Comment on above: Performed By: #### L 100.0100 #### [facility] [address] [place], [address] Hemoglobin (Bld) [Mass/Vol] 14.8 g/dL Normal 13.0-16.5 [facility] Comment on above: Performed By: #### L 100.0100 #### [facility] [address] [place], [address] IG% 1.600 High 0.0-0.9 [facility] Comment on above: Result Comment: IG% - Immature Granulocytes (promyelocytes, myelocytes and metamyelocytes) > 1% indicates that a LEFT SHIFT is Present. Performed By: #### L 100.0100 #### [facility] [address] [place], [address] Lymphocytes/100 WBC (Bld) 3.4 % Low 19-41 [facility] Comment on above: Performed By: #### L 100.0100 #### [facility] [address] [place], [address] MCH (RBC) [Entitic mass] 31.5 pg Normal 27.0-32.0 [facility] Comment on above: Performed By: #### L 100.0100 #### [facility] [address] [place], [address] MCHC (RBC) [Mass/Vol] 33.0 g/dL Normal 32-36 [facility] Comment on above: Performed By: #### L 100.0100 #### [facility] [address] [place], [address] MCV (RBC) [Entitic vol] 95.5 fL High 80-94 [facility] Comment on above: Performed By: #### L 100.0100 #### [facility] [address] [place], [address] Monocytes/100 WBC (Bld) 4.1 % Normal 0-10 [facility] Comment on above: Performed By: #### L 100.0100 #### [facility] [address] [place], [address] Neutrophils/100 WBC (Bld) 90.8 % High 47-70 [facility] Comment on above: Performed By: #### L 100.0100 #### [facility] [address] [place], [address] Nucleated RBC (Bld) [#/Vol] 0 10*3/uL Normal 0-5 [facility] Comment on above: Performed By: #### L 100.0100 #### [facility] [address] [place], [address] Platelet mean volume (Bld) [Entitic vol] 11.3 fL Normal 6.2-12.0 [facility] Comment on above: Performed By: #### L 100.0100 #### [facility] [address] [place], [address] Platelets (Bld) [#/Vol] 156 10*3/uL Normal 150-450 [facility] Comment on above: Performed By: #### L 100.0100 #### [facility] [address] [place], [address] RBC (Bld) [#/Vol] 4.70 10*6/uL Normal 4.6-6.2 [place] Comment on above: Performed By: #### L 100.0100 #### [facility] [address] [place], [address] RDW SD 57.0 fl High 35.1-43.9 [facility] Comment on above: Performed By: #### L 100.0100 #### [facility] [address] [place], [address] WBC (Bld) [#/Vol] 12.8 10*3/uL High 4.4-11.0 [place] Comment on above: Performed By: #### L 100.0100 #### [facility] [address] [place], [address] Basic Metabolic Profile (BMP )on 09-10-2024 BUN/CRE 37.5 RATIO High 10-20 [facility] Comment on above: Performed By: #### L 100.0100, L500.2500 #### [facility] [address] [place], [address] CA,Total 8.9 mg/dL Normal 8.5-10.1 [facility] Comment on above: Performed By: #### L 100.0100, L500.2500 #### [facility] [address] [place], [address] Chloride [Moles/Vol] 111 mmol/L High 98-[address] [facility] Comment on above: Performed By: #### L 100.0100, L500.2500 #### [facility] [address] [place], [address] CO2 [Moles/Vol] 27.0 mmol/L Normal 21.0-32.0 [facility] Comment on above: Performed By: #### L 100.0100, L500.2500 #### [facility] [address] [place], [address] Creatinine [Mass/Vol] 0.77 mg/dL Normal 0.70-1.30 [facility] Comment on above: Result Comment: The validity of the calculated GFR GFRAA in patients over 70 years has not been determined. Clinical correlation is essential. Performed By: #### L 100.0100, L500.2500 #### [facility] [address] [place], [address] ECRCL 67.03 ml/min Normal [facility] Comment on above: Performed By: #### L 100.0100, L500.2500 #### [facility] [address] [place], [address] EST GFR - AA 122 mL/min Normal >60 [facility] Comment on above: Result Comment: Afri can Cymraes GFR Calc Performed By: #### L 100.0100, L500.2500 #### [facility] [address] [place], [address] GAP 5 Normal 5-15 [facility] Comment on above: Performed By: #### L 100.0100, L500.2500 #### [facility] [address] [place], [address] GFR/1.73 sq M.predicted among non-blacks MDRD (S/P/Bld) [Vol rate/Area] 101 mL/min/{1.73_m2} Normal >60 [facility] Comment on above: Result Comment: Non- GFR Calc Performed By: #### L 100.0100, L500.2500 #### [facility] [address] [place], [address] Glucose [Mass/Vol] 132 mg/dL High 74-106 [facility] Comment on above: Result Comment: Fast ing Glucose result greater than or equal to 126 mg/dL suggests DIABETES MELLITUS per A.D.A. criteria. Performed By: #### L 100.0100, L500.2500 #### [facility] [address] [place], [address] Potassium [Moles/Vol] 3.7 mmol/L Normal 3.5-5.1 [facility] Comment on above: Performed By: #### L 100.0100, L500.2500 #### [facility] [address] [place], [address] Sodium [Moles/Vol] 142 mmol/L Normal 136-145 [facility] Comment on above: Performed By: #### L 100.0100, L500.2500 #### [facility] [address] [place], [address] Urea nitrogen [Mass/Vol] 29 mg/dL High 7-18 [facility] Comment on above: Performed By: #### L 100.0100, L500.2500 #### [facility] [address] [place], [address] CBC W/Diff, Automatedon -07 31-2024 Absolute Lymph 0.39 X10 3/uL Low 0.83-4.51 [facility] Comment on above: Performed By: #### L 100.0100, L500.2500 #### [facility] [address] [place], [address] Absolute Neut 10.7 X10 3/uL High 2.0-7.7 [facility] Comment on above: Performed By: #### L 100.0100, L500.2500 #### [facility] [address] [place], [address] Basophils/100 WBC (Bld) 0.2 % Normal 0-1 [facility] Comment on above: Performed By: #### L 100.0100, L500.2500 #### [facility] [address] [place], [address] Eosinophils/100 WBC (Bld) 0.0 % Normal 0-5 [facility] Comment on above: Performed By: #### L 100.0100, L500.2500 #### [facility] [address] [place], [address] Erythrocyte distribution width (RBC) [Ratio] 16.5 % High 11.6-14.6 [facility] Comment on above: Performed By: #### L 100.0100, L500.2500 #### [facility] [address] [place], [address] Hematocrit (Bld) [Volume fraction] 43.4 % Normal 40-54 [facility] Comment on above: Performed By: #### L 100.0100, L500.2500 #### [facility] [address] [place], [address] Hemoglobin (Bld) [Mass/Vol] 14.7 g/dL Normal 13.0-16.5 [facility] Comment on above: Performed By: #### L 100.0100, L500.2500 #### [facility] [address] [place], [address] IG% 1.200 High 0.0-0.9 [facility] Comment on above: Result Comment: IG% - Immature Granulocytes (promyelocytes, myelocytes and metamyelocytes) > 1% indicates that a LEFT SHIFT is Present. Performed By: #### L 100.0100, L500.2500 #### [facility] [address] [place], [address] Lymphocytes/100 WBC (Bld) 3.3 % Low 19-41 [facility] Comment on above: Performed By: #### L 100.0100, L500.2500 #### [facility] [address] [place], [address] MCH (RBC) [Entitic mass] 32.3 pg High 27.0-32.0 [facility] Comment on above: Performed By: #### L 100.0100, L500.2500 #### [facility] [address] [place], [address] MCHC (RBC) [Mass/Vol] 33.9 g/dL Normal 32-36 [facility] Comment on above: Performed By: #### L 100.0100, L500.2500 #### [facility] [address] [place], [address] MCV (RBC) [Entitic vol] 95.4 fL High 80-94 [facility] Comment on above: Performed By: #### L 100.0100, L500.2500 #### [facility] [address] [place], [address] Monocytes/100 WBC (Bld) 4.3 % Normal 0-10 [facility] Comment on above: Performed By: #### L 100.0100, L500.2500 #### [facility] [address] [place], [address] Neutrophils/100 WBC (Bld) 91.0 % High 47-70 [facility] Comment on above: Performed By: #### L 100.0100, L500.2500 #### [facility] [address] [place], [address] Nucleated RBC (Bld) [#/Vol] 0 10*3/uL Normal 0-5 [facility] Comment on above: Performed By: #### L 100.0100, L500.2500 #### [facility] [address] [place], [address] Platelet mean volume (Bld) [Entitic vol] 11.9 fL Normal 6.2-12.0 [facility] Comment on above: Performed By: #### L 100.0100, L500.2500 #### [facility] [address] [place], [address] Platelets (Bld) [#/Vol] 166 10*3/uL Normal 150-450 [facility] Comment on above: Performed By: #### L 100.0100, L500.2500 #### [facility] [address] [place], [address] RBC (Bld) [#/Vol] 4.55 10*6/uL Low 4.6-6.2 [place] Comment on above: Performed By: #### L 100.0100, L500.2500 #### [facility] [address] [place], [address] RDW SD 57.2 fl High 35.1-43.9 [facility] Comment on above: Performed By: #### L 100.0100, L500.2500 #### [facility] [address] [place], [address] WBC (Bld) [#/Vol] 11.8 10*3/uL High 4.4-11.0 [facility] Comment on above: Performed By: #### L 100.0100, L500.2500 #### [facility] [address] [place], [address] Gram Stainon 09-10-2024 GS Acceptable Specimen? Yes (<25 Epithelial cells per/lpf) Gram Stain 2+ Gram positive cocci 2+ Gram positive rods 1+ Red Blood Cells 1+ White Blood Cells 1+ Epithelial cells Normal [facility] Comment on above: Performed By: #### M 100.2400, M100.2000 ####[facility] [address] [place], [address] Basic Metabolic Profile (BMP )on 09-09-2024 BUN/CRE 35.1 RATIO High 10-20 [facility] Comment on above: Performed By: #### L 100.0100, L500.2500 #### [facility] [address] [place], [address] CA,Total 8.4 mg/dL Low 8.5-10.1 [facility] Comment on above: Performed By: #### L 100.0100, L500.2500 #### [facility] [address] [place], [address] Chloride [Moles/Vol] 107 mmol/L Normal 98-[address] [facility] Comment on above: Performed By: #### L 100.0100, L500.2500 #### [facility] [address] [place], [address] CO2 [Moles/Vol] 24.0 mmol/L Normal 21.0-32.0 [facility] Comment on above: Performed By: #### L 100.0100, L500.2500 #### [facility] [address] [place], [address] Creatinine [Mass/Vol] 0.94 mg/dL Normal 0.70-1.30 [facility] Comment on above: Result Comment: The validity of the calculated GFR GFRAA in patients over 70 years has not been determined. Clinical correlation is essential. Performed By: #### L 100.0100, L500.2500 #### [facility] [address] [place], [address] ECRCL 57.13 ml/min Normal [facility] Comment on above: Performed By: #### L 100.0100, L500.2500 #### [facility] [address] [place], [address] EST GFR - AA 98 mL/min Normal >60 [facility] Comment on above: Result Comment: Afri can Cymraes GFR Calc Performed By: #### L 100.0100, L500.2500 #### [facility] [address] [place], [address] GAP 8 Normal 5-15 [facility] Comment on above: Performed By: #### L 100.0100, L500.2500 #### [facility] [address] [place], [address] GFR/1.73 sq M.predicted among non-blacks MDRD (S/P/Bld) [Vol rate/Area] 81 mL/min/{1.73_m2} Normal >60 [facility] Comment on above: Result Comment: Non- GFR Calc Performed By: #### L 100.0100, L500.2500 #### [facility] [address] [place], [address] Glucose [Mass/Vol] 146 mg/dL High 74-106 [facility] Comment on above: Result Comment: Fast ing Glucose result greater than or equal to 126 mg/dL suggests DIABETES MELLITUS per A.D.A. criteria. Performed By: #### L 100.0100, L500.2500 #### [facility] [address] [place], [address] Potassium [Moles/Vol] 3.2 mmol/L Low 3.5-5.1 [facility] Comment on above: Performed By: #### L 100.0100, L500.2500 #### [facility] [address] [place], [address] Sodium [Moles/Vol] 139 mmol/L Normal 136-145 [facility] Comment on above: Performed By: #### L 100.0100, L500.2500 #### [facility] [address] [place], [address] Urea nitrogen [Mass/Vol] 33 mg/dL High 7-18 [facility] Comment on above: Performed By: #### L 100.0100, L500.2500 #### [facility] [address] [place], [address] CBC W/Diff, Automatedon 08-30 Absolute Lymph 0.57 X10 3/uL Low 0.83-4.51 [facility] Comment on above: Performed By: #### L 100.0100, L500.2500 #### [facility] [address] [place], [address] Absolute Neut 15.4 X10 3/uL High 2.0-7.7 [facility] Comment on above: Performed By: #### L 100.0100, L500.2500 #### [facility] [address] [place], [address] Basophils/100 WBC (Bld) 0.1 % Normal 0-1 [facility] Comment on above: Performed By: #### L 100.0100, L500.2500 #### [facility] [address], [address] Eosinophils/100 WBC (Bld) 0.0 % Normal 0-5 [facility] Comment on above: Performed By: #### L 100.0100, L500.2500 #### [facility] [address] [place], [address] Erythrocyte distribution width (RBC) [Ratio] 16.6 % High 11.6-14.6 [facility] Comment on above: Performed By: #### L 100.0100, L500.2500 #### [facility] [address] [place], [address] Hematocrit (Bld) [Volume fraction] 43.3 % Normal 40-54 [facility] Comment on above: Performed By: #### L 100.0100, L500.2500 #### [facility] [address] [place], [address] Hemoglobin (Bld) [Mass/Vol] 14.4 g/dL Normal 13.0-16.5 [facility] Comment on above: Performed By: #### L 100.0100, L500.2500 #### [facility] [address] [place], [address] IG% 0.700 Normal 0.0-0.9 [facility] Comment on above: Result Comment: IG% - Immature Granulocytes (promyelocytes, myelocytes and metamyelocytes) > 1% indicates that a LEFT SHIFT is Present. Performed By: #### L 100.0100, L500.2500 #### [facility] [address] [place], [address] Lymphocytes/100 WBC (Bld) 3.3 % Low 19-41 [facility] Comment on above: Performed By: #### L 100.0100, L500.2500 #### [facility] [address] [place], [address] MCH (RBC) [Entitic mass] 31.4 pg Normal 27.0-32.0 [facility] Comment on above: Performed By: #### L 100.0100, L500.2500 #### [facility] [address] [place], [address] MCHC (RBC) [Mass/Vol] 33.3 g/dL Normal 32-36 [facility] Comment on above: Performed By: #### L 100.0100, L500.2500 #### [facility] [address] [place], [address] MCV (RBC) [Entitic vol] 94.5 fL High 80-94 [facility] Comment on above: Performed By: #### L 100.0100, L500.2500 #### [facility] [address] [place], [address] Monocytes/100 WBC (Bld) 7.2 % Normal 0-10 [facility] Comment on above: Performed By: #### L 100.0100, L500.2500 #### [facility] [address] [place], [address] Neutrophils/100 WBC (Bld) 88.7 % High 47-70 [facility] Comment on above: Performed By: #### L 100.0100, L500.2500 #### [facility] [address] [place], [address] Nucleated RBC (Bld) [#/Vol] 0 10*3/uL Normal 0-5 [facility] Comment on above: Performed By: #### L 100.0100, L500.2500 #### [facility] [address] [place], [address] Platelet mean volume (Bld) [Entitic vol] 11.4 fL Normal 6.2-12.0 [facility] Comment on above: Performed By: #### L 100.0100, L500.2500 #### [facility] [address] [place], [address] Platelets (Bld) [#/Vol] 178 10*3/uL Normal 150-450 [facility] Comment on above: Performed By: #### L 100.0100, L500.2500 #### [facility] [address] [place], [address] RBC (Bld) [#/Vol] 4.58 10*6/uL Low 4.6-6.2 [place] Comment on above: Performed By: #### L 100.0100, L500.2500 #### [facility] [address] [place], [address] RDW SD 56.1 fl High 35.1-43.9 [facility] Comment on above: Performed By: #### L 100.0100, L500.2500 #### [facility] [address] [place], [address] WBC (Bld) [#/Vol] 17.4 10*3/uL High 4.4-11.0 [place] Comment on above: Performed By: #### L 100.0100, L500.2500 #### [facility] [address] [place], [address] CNPValeria [facility]-09-2024 [facility] TRUPTICLARK Mega ([id number]) 1935 M Date Time Provider Department 09/09/24 BRIGITTE SEGAL During your visit today, we recorded the following information about you: Brigitte Segal, MAGAZINE SUPERVISOR.MATE SHIP 09/09/2024 10:05 AM Signed Patient was admitted to [facility] on September 07 to 2024 for [...] Date Reviewed: 03/27/2024 Reviewed by: Brigitte Segal APRN.MATE SHIP - Fully Assessed Prescriptions as of 09/09/2024 [...] Meds Comments as of 04/18/2021: Taking Saw [place]. Problem List As Of Date 09/09/2024 Noted [...] chronic blood los*01/27/2020 Coronary artery disease involving [place] rabago*12/22/2020 S/P primary angioplasty with coronary stent [Z9*12/22/2020 Fall from standing [W19.XXXA] 09/20/2021 Encounter for support and coordination of trans*08/11/2023 Acute respiratory failure with hypoxia (HCC) [J*09/25/2023 Encounter Status:Closed by BRIGITTE SEGAL on 09/09/24 Normal [facility] Gram stainOrdered By: Lester stein on 09-09-2024 Microscopic observation Gram stain Nom (Unsp spec) [facility] Legionella Antigen Urineon 0 09-09-2024 LEGU URINE, CLEAN CATCH Legionella Antigen result interpretation: L pneumo Ag Ur Ql Negative Presumptive negative for Legionella pneumophila serogroup 1 antigen in urine, suggesting no recent or current infection. Legionella Ag, Urine Negative (See interpretation below) [facility] Comment on above: Performed By: #### L 100.0100, L500.2500 #### [facility] [address] [facility] [place], [place], [id number] Microbial respiratory cultur eOrdered By: Lester Perdomo on 09-09-2024 Microorganism identified Cx Nom (Unsp spec) [facility] Strep pneumoniae Antig(UR,CS F)on 09-09-2024 STPAG URINE INTERPRETATION Strep pneumoniae Antig(UR,CSF) Negative Urine Presumptive negative for pneumococcal pneumonia, suggesting no current or recent pneumococcal infection. Infection due to S pneumoniae cannot be ruled out since the antigen present in the sample may be below the detection limit of the test. Strep pneumo Test Negative URINE (See interpretation below) Normal [facility] Comment on above: Performed By: #### L 100.0100, L500.2500 #### [facility] [address] [facility] [place], [address] Urine Legionella pneumophila antigen detectionOrdered By: Lester Perodmo on 09-09-2024 L. pneumophila Ag Ql (U) [facility] Abdomen Single Viewon 2024 Abdomen Single View [facility] [address] [place], [place] [id number] Abdomen Single View MR#: [id number] Acct: [id number] Name: CLARK LYLES Rep #: [id number] : 1935 M 88 From: Mike Vela DO PCP: MARIANA Humphreys Status: ADM IN Study: Abdomen Single View Date of Exam: 09/08/24 Exam# [id number] Ordering Dr: Lester Perdomo DO PROCEDURE: ABDOMEN [...] right inferior pubic ramus bone. Reading Location: [facility] CC: CLEANING SPECIALIST Brigitte Segal; Dr. Lester Perdomo DO Assistant Center Manager: Signed Normal [facility] Basic Metabolic Profile (BMP )on 09-08-2024 BUN/CRE 33.0 RATIO High 10-20 [facility] Comment on above: Performed By: #### L 500.2500, L501.5200, L100.0100, L501.2300 ####[facility] [address] [place], [address] CA,Total 8.6 mg/dL Normal 8.5-10.1 [facility] Comment on above: Performed By: #### L 500.2500, L501.5200, L100.0100, L501.2300 ####[facility] [address] [place], [address] Chloride [Moles/Vol] 106 mmol/L Normal 98-[address] [facility] Comment on above: Performed By: #### L 500.2500, L501.5200, L100.0100, L501.2300 ####[facility] [address] [place], [address] CO2 [Moles/Vol] 22.0 mmol/L Normal 21.0-32.0 [facility] Comment on above: Performed By: #### L 500.2500, L501.5200, L100.0100, L501.2300 ####[facility] [address] [place], [address] Creatinine [Mass/Vol] 0.82 mg/dL Normal 0.70-1.30 [facility] Comment on above: Result Comment: The validity of the calculated GFR GFRAA in patients over 70 years has not been determined. Clinical correlation is essential. Performed By: #### L 500.2500, L501.5200, L100.0100, L501.2300 ####[facility] [address] [place], [address] ECRCL 66.59 ml/min Normal [facility] Comment on above: Performed By: #### L 500.2500, L501.5200, L100.0100, L501.2300 ####[facility] [address] [place], [address] EST GFR - AA 115 mL/min Normal >60 [facility] Comment on above: Result Comment: Afri can Cymraes GFR Calc Performed By: #### L 500.2500, L501.5200, L100.0100, L501.2300 ####[facility] [address] [place], [address] GAP 11 Normal 5-15 [facility] Comment on above: Performed By: #### L 500.2500, L501.5200, L100.0100, L501.2300 ####[facility] [address] [place], [address] GFR/1.73 sq M.predicted among non-blacks MDRD (S/P/Bld) [Vol rate/Area] 95 mL/min/{1.73_m2} Normal >60 [facility] Comment on above: Result Comment: Non- GFR Calc Performed By: #### L 500.2500, L501.5200, L100.0100, L501.2300 ####[facility] [address] [place], [address] Glucose [Mass/Vol] 150 mg/dL High 74-106 [facility] Comment on above: Result Comment: Fast ing Glucose result greater than or equal to 126 mg/dL suggests DIABETES MELLITUS per A.D.A. criteria. Performed By: #### L 500.2500, L501.5200, L100.0100, L501.2300 ####[facility] [address] [place], [address] Potassium [Moles/Vol] 3.2 mmol/L Low 3.5-5.1 [facility] Comment on above: Performed By: #### L 500.2500, L501.5200, L100.0100, L501.2300 ####[facility] [address] [place], [address] Sodium [Moles/Vol] 138 mmol/L Normal 136-145 [facility] Comment on above: Performed By: #### L 500.2500, L501.5200, L100.0100, L501.2300 ####[facility] [address] [place], [address] Urea nitrogen [Mass/Vol] 27 mg/dL High 7-18 [facility] Comment on above: Performed By: #### L 500.2500, L501.5200, L100.0100, L501.2300 ####[facility] [address] [place], [address] CBC W/Diff, Automatedon 02-1 0-2024 Absolute Lymph 0.32 X10 3/uL Low 0.83-4.51 [facility] Comment on above: Performed By: #### L 500.2500, L501.5200, L100.0100, L501.2300 #### [facility] [address] [place], [address] Absolute Neut 7.4 X10 3/uL Normal 2.0-7.7 [facility] Comment on above: Performed By: #### L 500.2500, L501.5200, L100.0100, L501.2300 #### [facility] [address] [place], [address] Basophils/100 WBC (Bld) 0.1 % Normal 0-1 [facility] Comment on above: Performed By: #### L 500.2500, L501.5200, L100.0100, L501.2300 #### [facility] [address] [place], [address] Eosinophils/100 WBC (Bld) 0.0 % Normal 0-5 [facility] Comment on above: Performed By: #### L 500.2500, L501.5200, L100.0100, L501.2300 #### [facility] [address] [place], [address] Erythrocyte distribution width (RBC) [Ratio] 16.0 % High 11.6-14.6 [facility] Comment on above: Performed By: #### L 500.2500, L501.5200, L100.0100, L501.2300 #### [facility] [address] [place], [address] Hematocrit (Bld) [Volume fraction] 42.9 % Normal 40-54 [facility] Comment on above: Performed By: #### L 500.2500, L501.5200, L100.0100, L501.2300 #### [facility] [address] [place], [address] Hemoglobin (Bld) [Mass/Vol] 15.4 g/dL Normal 13.0-16.5 [facility] Comment on above: Performed By: #### L 500.2500, L501.5200, L100.0100, L501.2300 #### [facility] [address] [place], [address] IG% 0.800 Normal 0.0-0.9 [facility] Comment on above: Result Comment: IG% - Immature Granulocytes (promyelocytes, myelocytes and metamyelocytes) > 1% indicates that a LEFT SHIFT is Present. Performed By: #### L 500.2500, L501.5200, L100.0100, L501.2300 #### [facility] [address] [place], [address] Lymphocytes/100 WBC (Bld) 4.1 % Low 19-41 [facility] Comment on above: Performed By: #### L 500.2500, L501.5200, L100.0100, L501.2300 #### [facility] [address] [place], [address] MCH (RBC) [Entitic mass] 33.1 pg High 27.0-32.0 [facility] Comment on above: Performed By: #### L 500.2500, L501.5200, L100.0100, L501.2300 #### [facility] [address] [place], [address] MCHC (RBC) [Mass/Vol] 35.9 g/dL Normal 32-36 [facility] Comment on above: Performed By: #### L 500.2500, L501.5200, L100.0100, L501.2300 #### [facility] [address] [place], [address] MCV (RBC) [Entitic vol] 92.3 fL Normal 80-94 [facility] Comment on above: Performed By: #### L 500.2500, L501.5200, L100.0100, L501.2300 #### [facility] [address] [place], [address] Monocytes/100 WBC (Bld) 2.0 % Normal 0-10 [facility] Comment on above: Performed By: #### L 500.2500, L501.5200, L100.0100, L501.2300 #### [facility] [address] [place], [address] Neutrophils/100 WBC (Bld) 93.0 % High 47-70 [facility] Comment on above: Performed By: #### L 500.2500, L501.5200, L100.0100, L501.2300 #### [facility] [address] [place], [address] Nucleated RBC (Bld) [#/Vol] 0 10*3/uL Normal 0-5 [facility] Comment on above: Performed By: #### L 500.2500, L501.5200, L100.0100, L501.2300 #### [facility] [address] [place], [address] Platelet mean volume (Bld) [Entitic vol] 11.6 fL Normal 6.2-12.0 [facility] Comment on above: Performed By: #### L 500.2500, L501.5200, L100.0100, L501.2300 #### [facility] [address] [place], [address] Platelets (Bld) [#/Vol] 183 10*3/uL Normal 150-450 [facility] Comment on above: Performed By: #### L 500.2500, L501.5200, L100.0100, L501.2300 #### [facility] [address] [place], [address] RBC (Bld) [#/Vol] 4.65 10*6/uL Normal 4.6-6.2 [place] Comment on above: Performed By: #### L 500.2500, L501.5200, L100.0100, L501.2300 #### [facility] [address] [place], [address] RDW SD 52.6 fl High 35.1-43.9 [facility] Comment on above: Performed By: #### L 500.2500, L501.5200, L100.0100, L501.2300 #### [facility] [address] [place], [address] WBC (Bld) [#/Vol] 7.9 10*3/uL Normal 4.4-11.0 [facility] [facility] Comment on above: Performed By: #### L 500.2500, L501.5200, L100.0100, L501.2300 #### [facility] [address] [place], [address] CTA Chest W/WO Contraston CTA Chest W/WO Contrast [facility] Imaging Services [address] [place] [address] CTA Chest W/WO Contrast MR#: [id number] Acct: [id number] Name: CLARK LYLES Rep #: [id number] : 1935 M 88 From: Jose araujo MD PCP: Brigitte Segal, CLEANING SPECIALIST Status: ADM IN Study: CTA Chest W/WO Contrast Date of Exam: 09/08/24 Exam# [id number] Ordering Dr: Lester Perdomo DO PROCEDURE: CTA [...] use of iterative reconstruction technique). Reading Location: [place] [address] CC: CLEANING SPECIALIST Brigitte Segal; Dr. Lester Perdomo DO Assistant Center Manager: Signed Normal [facility] Echo, Limited Studyon 2024 Echo, Limited Study [facility] Cardiovascular Services [address] [place] [address] Echo, Limited Study 09/08/24 1446 MR#: [id number] Acct: [id number] Name: CLARK LYLES Rep #: [id number] : 1935 88 From: Dejuan Brooks MD Attending Dr: Dr. Lester Perdomo DO Status: ADM IN Ordering Dr: Lester Perdomo DO Date: 09/08/24 Location: [facility] Sex: M C Admitted: 09/07/24 Reason For Study ECHO/Echo, Limited Study Interpretation Summary Normal LV size. Left ventricular systolic function is normal. The left ventricular ejection fraction is 55 %. Pulmonary artery systolic pressure is 86 mmHg. Severe pulmonary hypertension. Moderately severe (3+) tricuspid valve insufficiency. Ordering Physician: Lester Perdomo Referring Physician: BRIGITTE SEAGL Performed By: Cynthia Alonzo RCS 09/09/24833 Date Dejuan Brooks MD CC: CLEANING SPECIALIST Brigitte Segal; Dr. Lester Perdomo, Date Dictated: 09/08/24 1446 Date Transcribed: 09/09/24833 Assistant Center Manager: Signed Normal [facility] Magnesiumon 09-08-2024 Magnesium [Mass/Vol] 1.8 mg/dL Normal 1.6-2.[address] [facility] Comment on above: Performed By: #### L 500.2500, L501.5200, L100.0100, L501.2300 ####[facility] [address] [facility] [place], [address] Magnesium measurementOrdered By: Jerrell Faith on 09-08-2024 Magnesium [Mass/Vol] 1.8 mg/dL 1.6-2.[address] [facility] Phosphoruson 09-08-2024 Phosphate [Mass/Vol] 3.9 mg/dL Normal 2.5-4.[address] [facility] Comment on above: Performed By: #### L 500.2500, L501.5200, L100.0100, L501.2300 ####[facility] [address] [facility] [place], [address] 12 Lead EKGon 09-07-2024 12 Lead EKG [facility] Cardiovascular Services [address] [place] [address] 12 Lead EKG 09/07/24 1105 MR#: [id number] Acct: [id number] Name: CLARK LYLES Rep #: [id number] : 1935 88 From: Dejuan Brooks MD Attending Dr: Dr. Lester Perdomo DO Status: ADM IN Ordering Dr: Neo Tejeda DO Date: 09/07/24 Location: [facility] Sex: M C Admitted: 09/07/24 Test Reason [...] normal ECG Confirmed by TODD MANUEL, DEJUAN ([id number]), art editor FARSHAD PANDYA ([id number]) on 09/08/2024 11:07:09 AM Referred By: Confirmed By: DEJUAN BROOKS MD 09/08/24 110 Date Dejuan Brooks MD CC: MARIANA Segal; Dr. Lester Perdomo DO; Dr. Neo Tejeda DO Signed Normal [facility] Activated partial thrombopla stin time (aPTT) in platelet poor plasma by coagulation aOrdered By: Neo Tejeda on 09-07-2024 aPTT Coag (PPP) [Time] 26.5 s 24.1-36.2 [facility] Assessment of wrist artery p atency prior to arterial punctureOrdered By: Neo Tejeda on 09-07-2024 Arterial patency Wrist artery --pre arterial puncture Positive [facility] BNP (brain natriuretic pepti de measurement)Ordered By: Neo Tejeda on 09-07-2024 Natriuretic peptide B (Bld) [Mass/Vol] 221.1 pg/mL High 0-100 [facility] BNP,B-Type NATRIURETIC PEPTI Giovanni 09-07-2024 Natriuretic peptide B (Bld) [Mass/Vol] 221.1 pg/mL High 0-100 [facility] Comment on above: Performed By: #### L 503.6620 ####[facility] [address] [place], [address] Basic Metabolic Profile (BMP )on 09-07-2024 BUN/CRE 19.2 RATIO Normal 10-20 [facility] Comment on above: Order Comment: 'TROP ' Serial specimen #1, #2 or #3: 1 Performed By: #### L 500.2500, L501.4020, L100.0100, L300.3900, L300.4310 ####[facility] [address] [place], [address] CA,Total 8.7 mg/dL Normal 8.5-10.1 [facility] Comment on above: Order Comment: 'TROP ' Serial specimen #1, #2 or #3: 1 Performed By: #### L 500.2500, L501.4020, L100.0100, L300.3900, L300.4310 ####[facility] [address] [place], [address] Chloride [Moles/Vol] 104 mmol/L Normal 98-[address] [facility] Comment on above: Order Comment: 'TROP ' Serial specimen #1, #2 or #3: 1 Performed By: #### L 500.2500, L501.4020, L100.0100, L300.3900, L300.4310 ####[facility] [address] [place], [address] CO2 [Moles/Vol] 18.0 mmol/L Low 21.0-32.0 [facility] Comment on above: Order Comment: 'TROP ' Serial specimen #1, #2 or #3: 1 Performed By: #### L 500.2500, L501.4020, L100.0100, L300.3900, L300.4310 ####[facility] [address] [place], [address] Creatinine [Mass/Vol] 1.04 mg/dL Normal 0.70-1.30 [facility] Comment on above: Order Comment: 'TROP ' Serial specimen #1, #2 or #3: 1 Result Comment: The validity of the calculated GFR GFRAA in patients over 70 years has not been determined. Clinical correlation is essential. Performed By: #### L 500.2500, L501.4020, L100.0100, L300.3900, L300.4310 ####[facility] [address] [place], [address] ECRCL 49.04 ml/min Normal [facility] Comment on above: Order Comment: 'TROP ' Serial specimen #1, #2 or #3: 1 Performed By: #### L 500.2500, L501.4020, L100.0100, L300.3900, L300.4310 ####[facility] [address] [place], [address] EST GFR - AA 87 mL/min Normal >60 [facility] Comment on above: Order Comment: 'TROP ' Serial specimen #1, #2 or #3: 1 Result Comment: Afri can Cymraes GFR Calc Performed By: #### L 500.2500, L501.4020, L100.0100, L300.3900, L300.4310 ####[facility] [address] [place], [address] GAP 16 High 5-15 [facility] Comment on above: Order Comment: 'TROP ' Serial specimen #1, #2 or #3: 1 Performed By: #### L 500.2500, L501.4020, L100.0100, L300.3900, L300.4310 ####[facility] [address] [place], [address] GFR/1.73 sq M.predicted among non-blacks MDRD (S/P/Bld) [Vol rate/Area] 72 mL/min/{1.73_m2} Normal >60 [facility] Comment on above: Order Comment: 'TROP ' Serial specimen #1, #2 or #3: 1 Result Comment: Non- GFR Calc Performed By: #### L 500.2500, L501.4020, L100.0100, L300.3900, L300.4310 ####[facility] [address] [place], [address] Glucose [Mass/Vol] 77 mg/dL Normal 74-106 [facility] Comment on above: Order Comment: 'TROP ' Serial specimen #1, #2 or #3: 1 Performed By: #### L 500.2500, L501.4020, L100.0100, L300.3900, L300.4310 ####[facility] [address] [place], [address] Potassium [Moles/Vol] 3.3 mmol/L Low 3.5-5.1 [facility] Comment on above: Order Comment: 'TROP ' Serial specimen #1, #2 or #3: 1 Performed By: #### L 500.2500, L501.4020, L100.0100, L300.3900, L300.4310 ####[facility] [address] [place], [address] Sodium [Moles/Vol] 138 mmol/L Normal 136-145 [facility] Comment on above: Order Comment: 'TROP ' Serial specimen #1, #2 or #3: 1 Performed By: #### L 500.2500, L501.4020, L100.0100, L300.3900, L300.4310 ####[facility] [address] [place], [address] Urea nitrogen [Mass/Vol] 20 mg/dL High 7-18 [facility] Comment on above: Order Comment: 'TROP ' Serial specimen #1, #2 or #3: 1 Performed By: #### L 500.2500, L501.4020, L100.0100, L300.3900, L300.4310 ####[facility] [address] [place], [address] Bilirubin Test strip Ql (U)O rdered By: Neo Tejeda on 09-07-2024 Bilirubin Ql (U) Negative Negative [facility] Blood Gases by CPSon 025 MAGUI TEST Positive Normal [facility] Comment on above: Performed By: #### L 100.0100, L500.2500 #### [facility] [address] [place], [address] Base excess Calc (Bld) [Moles/Vol] -8 mmol/L Low -2 to +2 [facility] Comment on above: Performed By: #### L 100.0100, L500.2500 #### [facility] [address] [place], [address] Blood Gas Type ART Normal [facility] Comment on above: Performed By: #### L 100.0100, L500.2500 #### [facility] [address] [place], [address] CO2 [Moles/Vol] 18 mmol/L Normal [facility] Comment on above: Performed By: #### L 100.0100, L500.2500 #### [facility] [address] [place], [address] Comment AIRVO 60L Normal [facility] Comment on above: Performed By: #### L 100.0100, L500.2500 #### [facility] [address] [place], [address] FI02 50.0 Normal [facility] Comment on above: Performed By: #### L 100.0100, L500.2500 #### [facility] [address] [place], [address] HCO3 (Bld) [Moles/Vol] 17.0 mmol/L Low 22-26 [facility] Comment on above: Performed By: #### L 100.0100, L500.2500 #### [facility] [address] [place], [address] Mode Not entered Normal [facility] Comment on above: Performed By: #### L 100.0100, L500.2500 #### [facility] [address] [place], [address] O2 Delivery Dev HFNC Normal [facility] Comment on above: Performed By: #### L 100.0100, L500.2500 #### [facility] [address] [place], [address] pCO2 28.6 mmHg Low 35-45 [facility] Comment on above: Performed By: #### L 100.0100, L500.2500 #### [facility] [address] [place], [address] pH (Bld) 7.38 [pH] Normal 7.35-7.45 [facility] Comment on above: Performed By: #### L 100.0100, L500.2500 #### [facility] [address] [place], [address] PO2 102 mmHG High 75-100 [facility] Comment on above: Performed By: #### L 100.0100, L500.2500 #### [facility] [address] [place], [address] SITE R Radial Normal [facility] Comment on above: Performed By: #### L 100.0100, L500.2500 #### [facility] [address] [place], [address] SO2 98 Normal 95-99 [facility] Comment on above: Performed By: #### L 100.0100, L500.2500 #### [facility] [address] [place], [address] Blood base excess determinat ionOrdered By: Neo Tejeda on 09-07-2024 Base excess Calc (BldV) [Moles/Vol] -8 mmol/L Low -2-2 [facility] Blood bicarbonate measuremen tOrdered By: Neo Tejeda on 09-07-2024 HCO3 (Bld) [Moles/Vol] 17.0 mmol/L Low 22-26 [facility] CBC W/Diff, Automatedon Absolute Lymph 0.74 X10 3/uL Low 0.83-4.51 [facility] Comment on above: Performed By: #### L 500.2500, L501.4020, L100.0100, L300.3900, L300.4310 ####[facility] [address] [place], [address] Absolute Neut 10.8 X10 3/uL High 2.0-7.7 [facility] Comment on above: Performed By: #### L 500.2500, L501.4020, L100.0100, L300.3900, L300.4310 ####[facility] [address] [place], [address] Basophils/100 WBC (Bld) 0.3 % Normal 0-1 [facility] Comment on above: Performed By: #### L 500.2500, L501.4020, L100.0100, L300.3900, L300.4310 ####[facility] [address] [place], [address] Eosinophils/100 WBC (Bld) 0.1 % Normal 0-5 [facility] Comment on above: Performed By: #### L 500.2500, L501.4020, L100.0100, L300.3900, L300.4310 ####[facility] [address] [place], [address] Erythrocyte distribution width (RBC) [Ratio] 16.4 % High 11.6-14.6 [facility] Comment on above: Performed By: #### L 500.2500, L501.4020, L100.0100, L300.3900, L300.4310 ####[facility] [address] [place], [address] Hematocrit (Bld) [Volume fraction] 46.6 % Normal 40-54 [facility] Comment on above: Performed By: #### L 500.2500, L501.4020, L100.0100, L300.3900, L300.4310 ####[facility] [address] [place], [address] Hemoglobin (Bld) [Mass/Vol] 15.8 g/dL Normal 13.0-16.5 [facility] Comment on above: Performed By: #### L 500.2500, L501.4020, L100.0100, L300.3900, L300.4310 ####[facility] [address] [place], [address] IG% 1.200 High 0.0-0.9 [facility] Comment on above: Result Comment: IG% - Immature Granulocytes (promyelocytes, myelocytes and metamyelocytes) > 1% indicates that a LEFT SHIFT is Present. Performed By: #### L 500.2500, L501.4020, L100.0100, L300.3900, L300.4310 ####[facility] [address] [place], [address] Lymphocytes/100 WBC (Bld) 5.8 % Low 19-41 [facility] Comment on above: Performed By: #### L 500.2500, L501.4020, L100.0100, L300.3900, L300.4310 ####[facility] [address] [place], [address] MCH (RBC) [Entitic mass] 31.5 pg Normal 27.0-32.0 [facility] Comment on above: Performed By: #### L 500.2500, L501.4020, L100.0100, L300.3900, L300.4310 ####[facility] [address] [place], [address] MCHC (RBC) [Mass/Vol] 33.9 g/dL Normal 32-36 [facility] Comment on above: Performed By: #### L 500.2500, L501.4020, L100.0100, L300.3900, L300.4310 ####[facility] [address] [place], [address] MCV (RBC) [Entitic vol] 93.0 fL Normal 80-94 [facility] Comment on above: Performed By: #### L 500.2500, L501.4020, L100.0100, L300.3900, L300.4310 ####[facility] [address] [place], [address] Monocytes/100 WBC (Bld) 7.4 % Normal 0-10 [facility] Comment on above: Performed By: #### L 500.2500, L501.4020, L100.0100, L300.3900, L300.4310 ####[facility] [address] [place], [address] Neutrophils/100 WBC (Bld) 85.2 % High 47-70 [facility] Comment on above: Performed By: #### L 500.2500, L501.4020, L100.0100, L300.3900, L300.4310 ####[facility] [address] [place], [address] Nucleated RBC (Bld) [#/Vol] 0 10*3/uL Normal 0-5 [facility] Comment on above: Performed By: #### L 500.2500, L501.4020, L100.0100, L300.3900, L300.4310 ####[facility] [address] [place], [address] Platelet mean volume (Bld) [Entitic vol] 11.0 fL Normal 6.2-12.0 [facility] Comment on above: Performed By: #### L 500.2500, L501.4020, L100.0100, L300.3900, L300.4310 ####[facility] [address] [place], [address] Platelets (Bld) [#/Vol] 195 10*3/uL Normal 150-450 [facility] Comment on above: Performed By: #### L 500.2500, L501.4020, L100.0100, L300.3900, L300.4310 ####[facility] [address] [place], [address] RBC (Bld) [#/Vol] 5.01 10*6/uL Normal 4.6-6.2 [place] Comment on above: Performed By: #### L 500.2500, L501.4020, L100.0100, L300.3900, L300.4310 ####[facility] [address] [place], [address] RDW SD 53.0 fl High 35.1-43.9 [facility] Comment on above: Performed By: #### L 500.2500, L501.4020, L100.0100, L300.3900, L300.4310 ####[facility] [address] [place], [address] WBC (Bld) [#/Vol] 12.7 10*3/uL High 4.4-11.0 [facility] Comment on above: Performed By: #### L 500.2500, L501.4020, L100.0100, L300.3900, L300.4310 ####[facility] [address] [place], [address] CTA Head AND Neck W/ Contras ton 09-07-2024 CTA Head AND Neck W/ Contrast [facility] Imaging Services [address] [place] [address] CTA Head AND Neck W/ Contrast MR#: [id number] Acct: [id number] Name: CLARK LYLES Rep #: [id number] : 1935 M 88 From: Axel Marie MD PCP: Brigitte Segal, CLEANING SPECIALIST Status: REG ER Study: CTA Head AND Neck W/ Contrast Date of Exam: Exam# [id number] Ordering Dr: Neo Tejeda DO PROCEDURE: CTA [...] of iterative reconstruction technique). [facility] CC: CLEANING SPECIALIST Brigitte Segal; Dr. Neo Tejeda DO Assistant Center Manager: Signed Normal [facility] Calcium oxalate crystals det ection in urine sediment by light microscopyOrdered By: Neo Tejeda on 09-07-2024 Calcium oxalate crystals LM Ql (Urine sed) 1+ /hpf [facility] Chest 1 Viewon 09-07-2024 Chest 1 View [facility] Imaging Services [address] [place] [address] Chest 1 View MR#: [id number] Acct: [id number] Name: CLARK LYLES Rep #: [id number] : 1935 M 88 From: Axel Marie MD PCP: MARIANA Humphreys Status: REG ER Study: Chest 1 View Date of Exam: 09/07/24 Exam# [id number] Ordering Dr: Neo Tejeda DO PROCEDURE: CHEST 1 VIEW REASON FOR EXAM: Cough TECHNIQUE: Frontal view of the chest. COMPARISON: Reviewed. FINDINGS: The cardiac and mediastinal contours are normal. The lungs are clear. RAD/Chest 1 View IMPRESSION: No acute radiographic process. Reading Location: [facility] CC: CLEANING SPECIALIST Brigitte Segal; Dr. Neo Tejeda DO Assistant Center Manager: Signed Normal [facility] D-Dimer Quantitative (DVT/PE )on 09-07-2024 D-DIMER QUANT 1.63 FEU/ug/m Invalid Interpretation Code 0.27-0.49 [facility] Comment on above: Result Comment: D-Di marv ELEVATED (>0.49): Additional studies and clinical assessments are indicated to conclude diagnosis of: Deep Vein Thrombosis (DVT) or Pulmonary Embolism (PE) CRITICAL VALUE CALLED TO NIKOLAS HILL 09/07/24 Abdiel Lizarraga. RESULTS READ BACK BY SAME. Performed By: #### L 100.0100, L500.2500 #### [facility] [address] [place], [address] Elbow min 3 Viewson 09-07-19 25 Elbow min 3 Views [facility] Imaging Services [address] [place] [address] Elbow min 3 Views MR#: [id number] Acct: [id number] Name: CLARK LYLES Rep #: [id number] : 1935 M 88 From: Axel Marie MD PCP: MARIANA Humphreys Status: REG ER Study: Elbow min 3 Views Date of Exam: 09/07/24 Exam# [id number] Ordering Dr: Neo Tejeda DO PROCEDURE: ELBOW [...] No other acute radiographic process. Reading Location: [facility] CC: CLEANING SPECIALIST Brigitte Segal; Dr. Neo Tejeda DO Assistant Center Manager: Signed Normal [facility] min 3 [facility] [address] [place], [place] [address] Elbow min 3 Views MR#: [id number] Acct: [id number] Name: CLARK LYLES Rep #: [id number] : 1935 M 88 From: Axel Marie MD PCP: MARIANA Humphreys Status: REG ER Study: Elbow min 3 Views Date of Exam: 09/07/24 Exam# [id number] Ordering Dr: Neo Tejeda DO PROCEDURE: ELBOW [...] No other acute radiographic process. Reading Location: [facility] CC: MARIANA Segal; Dr. Neo Tejeda DO Assistant Center Manager: Signed Normal [facility] Emergency Department Summary on 09-07-2024 Emergency Department Summary [facility] Medical Records Department [address] [place] [address] Emergency Department Summary 09/07/24 MR#: [id number] Acct: [id number] Name: CLARK LYLES Rep #: [id number] : 1935 88 From: Neo Tejeda DO PCP: Brigitte Segal, CLEANING SPECIALIST Status:ADM IN Location: [place] [address] HPI History of Present Illness Chief Complaint: Stroke Alert [facility] Medical History (Updated 09/07/24 @ 13:[address] Jerrell Faith MD) COVID-19 virus detected (08/23/20) Anxiety and depression Chronic anemia Acute respiratory failure with hypoxia Hypoxia Pneumonia due to COVID-19 virus GI bleed (12/2019) Atherosclerosis of coronary artery of [place] heart without angina pectoris Peripheral vascular occlusive [...] was fo (more content not included)... Normal [facility] H AND P Exam - Hospitaliston 09-07-2024 H&P Exam - Hospitalist [facility] Medical Records Department [address] [place] [address] H P Exam - Hospitalist 09/07/24 1317 MR#: [id number] Acct: [id number] Name: CLARK LYLES Rep #: [id number] : 1935 88 From: Jerrell Faith MD PCP: Brigitte Segal, CLEANING SPECIALIST Status:ADM IN Location: [place] [address] HPI - General General Date of Admission: [...] monitored bed for further management [facility] Medical History (Updated 09/07/24 @ 13:[address] Jerrell Faith MD) COVID-19 virus detected (08/23/20) Anxiety and depression Chronic anemia Acute respiratory failure with hypoxia Hypoxia Pneumonia due to COVID-19 virus GI bleed (12/2019) Atherosclerosis of coronary artery of [place] heart without angina pectoris Peripheral vascular occlusive [...] 10:23 02/ (more content not included)... Normal [facility] Hyaline casts LM.LPF (Urine sed) [#/Area]Ordered By: Neo Tejeda on 09-07-2024 Hyaline casts (Urine sed) [#/Area] 0 /[LPF] 0-5 [facility] Influenza virus A and B and SARS-CoV-2 (COVID-19) and Respiratory syncytial virus RNAOrdered By: Neo Tejeda on 09-07-2024 SARS-CoV-2 (COVID-19) RNA CAMERON+probe Ql (Unsp spec) [facility] International normalized rat io (INR) calculationOrdered By: Neo Tejeda on 09-07-2024 INR Coag (Bld) [Relative time] 1.0 {INR} [facility] Ketones Test strip Ql (U)Ord ered By: Neo Tejeda on 09-07-2024 Ketones Ql (U) 5 mg/dl High Negative [facility] L501.4020on 09-07-2024 TROPONIN-I HS 68 pg/mL Normal 3.0-78.0 [facility] Comment on above: Order Comment: Comme nts: SPECIMEN #3'TROP' Serial specimen #1, #2 or #3: 3 Result Comment: Plea se Note: New Test Units and Gender Specific Reference Ranges. For more information see Policy Stat Procedure [place] High Sensitivity Troponin (TNIH) and attachments. Performed By: #### L 100.0100, L500.2500 #### [facility] [address] [place], [address] TROPONIN-I HS 76 pg/mL Normal 3.0-78.0 [facility] Comment on above: Order Comment: Comme nts: SPECIMEN #2'TROP' Serial specimen #1, #2 or #3: 2 Result Comment: Plea se Note: New Test Units and Gender Specific Reference Ranges. For more information see Policy Stat Procedure [place] High Sensitivity Troponin (TNIH) and attachments. Performed By: #### L 100.0100, L500.2500 #### [facility] [address] [place], [address] TROPONIN-I HS 63 pg/mL Normal 3.0-78.0 [facility] Comment on above: Order Comment: 'TROP ' Serial specimen #1, #2 or #3: 1 Result Comment: Plea se Note: New Test Units and Gender Specific Reference Ranges. For more information see Policy Stat Procedure [place] High Sensitivity Troponin (TNIH) and attachments. Performed By: #### L 500.2500, L501.4020, L100.0100, L300.3900, L300.4310 ####[facility] [address] [place], [address] M100.678on 09-07-2024 M100.678 Pending SARS-CoV-2 (COVID 19) Negative INFLUENZA A Negative INFLUENZA B Negative RSV PCR Negative Normal [facility] Comment on above: Performed By: #### L 100.0100, L500.2500 #### [facility] [address] [place], [place], [address] Measurement, pHOrdered By: Hugo Tejeda on 09-07-2024 pH (Unsp spec) 7.38 [pH] 7.35-7.45 [facility] Microscopic analysis of urin e for red blood cells (RBC)Ordered By: Neo Tejeda on 09-07-2024 Microscopic analysis of urine for red blood cells (RBC) 0-5 SEEN /hpf 0-5 [facility] Mucus LM Ql (Urine sed)Order ed By: Neo Tejeda on 09-07-2024 Mucus Ql (Urine sed) 1+ /hpf [facility] Nitrite Test strip Ql (U)Ord ered By: Neo Tejeda on 09-07-2024 Nitrite Ql (U) Negative Negative [facility] No Panel InformationOrdered By: Neo Tejeda on 09-07-2024 Blood Gas Clinical Comments AIRVO 60L [facility] Blood Gas Sample Site R Radial [facility] Blood Gas Specimen Type ART [facility] Blood Gas Vent Mode Not entered [facility] Oxygen Delivery Device HFNC [facility] Partial Thromboplast Timeon 09-07-2024 aPTT Coag (Bld) [Time] 26.5 s Normal 24.1-36.2 [facility] Comment on above: Performed By: #### L 500.2500, L501.4020, L100.0100, L300.3900, L300.4310 ####[facility] [address] [place], [place], [id number] Protein Test strip Ql (U)Ord ered By: Neo Tejeda on 09-07-2024 Protein Ql (U) 30 mg/dl High Negative [facility] Prothrombin Time w/INRon INR Coag (PPP) [Relative time] 1.0 {INR} Normal [facility] Comment on above: Performed By: #### L 500.2500, L501.4020, L100.0100, L300.3900, L300.4310 ####[facility] [address] [place], [address] PT Coag (PPP) [Time] 13.6 s Normal 11.7-14.[address] [facility] Comment on above: Performed By: #### L 500.2500, L501.4020, L100.0100, L300.3900, L300.4310 ####[facility] [address] [place], [address] Prothrombin timeOrdered By: Neo Tejeda on 09-07-2024 PT Coag (PPP) [Time] 13.6 s 11.7-14.[address] [facility] RESPIRATORY PANEL MOLECULARo n 09-07-2024 RP [...] Not Detected RSV B Not Detected Normal [facility] Comment on above: Performed By: #### L 100.0100, L500.2500 #### [facility] [address] [facility] [place], [address] Respiratory pathogens detect ion panel by molecular detection methodOrdered By: Jerrell Faith on 09-07-2024 Respiratory pathogens DNA and RNA panel CAMERON+probe (Resp) [facility] STROKE Brain/Head without Co nton 09-07-2024 STROKE Brain/Head without Cont [facility] Services [address] [place] [address] STROKE Brain/Head without Cont MR#: [id number] Acct: [id number] Name: CLARK LYLES Rep #: [id number] : 1935 M 88 From: Axel Marie MD PCP: CHRISTINE Brown Status: REG ER Study: STROKE Brain/Head without Cont Date of Exam: 0 09/07/24 Exam# [id number] Ordering Dr: Neo Tejeda DO EXAM: STROKE [...] the time of this dictation Reading Location: [facility] CC: Dr. Neo Tejeda DO; CHRISTINE Brown Assistant Center Manager: Signed Normal [facility] Squamous epithelial cells de tection in urine sediment by light microscopyOrdered By: Neo Tejeda on 09-07-2024 Epithelial cells.squamous LM Ql (Urine sed) 0-5 SEEN /hpf 0-5 [facility] Total carbon dioxide measure mentOrdered By: Neo Tejeda on 09-07-2024 CO2 [Moles/Vol] 18 mmol/L [facility] Troponin IOrdered By: Jerrell Faith on 09-07-2024 Troponin I 68 pg/mL 3.0-78.0 [facility] Comment on above: Please Note: [place] t Units and Gender Specific Reference Ranges. For more information see Policy Stat Procedure [place] High Sensitivity Troponin (TNIH) and attachments. Urinalysis, Completeon 09-07 CA OX CRYSTAL 1+ /hpf Normal [facility] Comment on above: Order Comment: COLLE CTOR TO SPECIFY Performed By: #### L 100.0100, L500.2500 #### [facility] [address] [place], [address] BACTERIA RARE Normal None Seen [facility] Comment on above: Order Comment: COLLE CTOR TO SPECIFY Performed By: #### L 100.0100, L500.2500 #### [facility] [address] [place], [address] CAST,HYALINE 0-5 SEEN Normal 0-5 [facility] Comment on above: Order Comment: COLLE CTOR TO SPECIFY Performed By: #### L 100.0100, L500.2500 #### [facility] [address] [place], [address] EPI,SQUAMOUS 0-5 SEEN Normal 0-5 [facility] Comment on above: Order Comment: COLLE CTOR TO SPECIFY Performed By: #### L 100.0100, L500.2500 #### [facility] [address] [place], [address] Mucus Ql (Urine sed) 1+ /hpf Normal [facility] Comment on above: Order Comment: COLLE CTOR TO SPECIFY Performed By: #### L 100.0100, L500.2500 #### [facility] [address] [place], [address] RBC 0-5 SEEN Normal 0-5 [facility] Comment on above: Order Comment: COLLE CTOR TO SPECIFY Performed By: #### L 100.0100, L500.2500 #### [facility] [address] [place], [address] WBC 0-5 SEEN Normal 0-5 [facility] Comment on above: Order Comment: COLLE CTOR TO SPECIFY Performed By: #### L 100.0100, L500.2500 #### [facility] [address] [place], [address] Urine clarityOrdered By: Ninoska Tejeda on 09-07-2024 Clarity (U) Clear Clear [facility] Urine color determinationOrd ered By: Neo Tejeda on 09-07-2024 Color (U) Yellow Yellow [facility] Urine glucose detectionOrder ed By: Neo Tejeda on 09-07-2024 Glucose Ql (U) Normal mg/dl Normal [facility] Urine leukocyte esterase det ection by dipstickOrdered By: Neo Tejeda on 09-07-2024 Leukocyte esterase Test strip Ql (U) Negative Negative [facility] Urine pHOrdered By: Neo escobedo on 09-07-2024 pH (U) 6.0 [pH] 5.0 - 8.0 [facility] Urine sediment bacteria coun t by microscopy (number/high power field)Ordered By: Neo Tejeda on 09-07-2024 Bacteria LM.HPF (Urine sed) [#/Area] RARE /hpf None Seen [facility] Urine specific gravity measu rementOrdered By: Neo Tejeda on 09-07-2024 Specific gravity (U) [Rel density] 1.010 1.002-1.03 0 [facility] Urine urobilinogen measureme ntOrdered By: Neo Tejeda on 09-07-2024 Urobilinogen Ql (U) Normal mg/dl Normal [facility] White blood cell countOrdere d By: Neo Tejeda on 09-07-2024 White blood cell count 0-5 SEEN /hpf 0-5 [facility] CNOVon 03-27-2024 CNOV Office Visit (FAMPWS ) CLARK LYLES ([id number]) 1935 M Date Time Provider Department 03/27/24 8:00 AM BRIGITTE SEGAL During your visit today, we recorded the following information about you: Pulse Respiration Blood pressure Weight 63/minute 16/minute 126/67 68.9 kg Brigitte Segal APRN.[employer] 03/27/2024 8:28 AM Addendum This is a [...] lipoma performed by Dr. Robe Mackenzie at [facility] 03-18-14: REVSC OPN/PRQ FEM/POP W/STNT/ANGIOP SM VSL [...] METOPROLOL SUCCINATE (more content not included)... Normal [facility] CLARK LYLES ([id number]) 1935 M Date Time Provider Department 02/26/24 BRIGITTE SEGAL [facility] During your visit today, we recorded the [...] Date Reviewed: 02/25/2024 Reviewed by: Brigitte Segal APRN.[employer] - Fully Assessed Prescriptions as of 02/26/2024 [...] Meds Comments as of 04/18/2021: Taking Saw [place]. Problem List As Of Date 02/26/2024 Noted [...] chronic blood los*01/27/2020 Coronary artery disease involving [place] rabago*12/22/2020 S/P primary angioplasty with coronary stent [Z9*12/22/2020 Fall from standing [W19.XXXA] 09/20/2021 Encounter for support and coordination of trans*08/11/2023 Acute respiratory failure with hypoxia (HCC) [J*09/25/2023 Encounter Status:Closed by SHIRLEY RIVERA on 02/26/24 Normal [facility] Amylase SerPl-cCncon 024 Amylase [Catalytic activity/Vol] 52 U/L Normal 30-104 [facility] Comment on above: Order Comment: Speci men Type: BLOOD SPECIMENOrdering Facility: [facility] Address: [address] [place] [address] Performed By: #### 3 040-3, 1798-8, 80786-8 ####[facility] LABCLIA [id number] [place] [address] [place] CBC W Auto Differential pane l (Bld)on 02-25-2024 Basophils (Bld) [#/Vol] 0.04 10*3/uL Normal <0.11 [facility] Comment on above: Order Comment: Speci men Type: BLOOD SPECIMENOrdering Facility: [facility] Address: [address] [place] [address] Performed By: #### 5 7021-8 ####[facility] LABCLIA [id number] [place] [address] [place] Basophils/100 WBC (Bld) 0.4 % Normal [facility] Comment on above: Order Comment: Speci men Type: BLOOD SPECIMENOrdering Facility: [facility] Address: [address] [place] [address] Performed By: #### 5 7021-8 ####[facility] LABCLIA [id number] [place] [address] [place] Differential cell count method Nom (Bld) Auto Normal [facility] Comment on above: Order Comment: Speci men Type: BLOOD SPECIMENOrdering Facility: [facility] Address: [address] [place] [address] Performed By: #### 5 7021-8 ####[facility] LABCLIA [id number] [place] [address] [place] Eosinophils (Bld) [#/Vol] 0.31 10*3/uL Normal <0.46 [facility] Comment on above: Order Comment: Speci men Type: BLOOD SPECIMENOrdering Facility: [facility] Address: [address] [place] [address] Performed By: #### 5 7021-8 ####[facility] LABCLIA [id number] [place] [address] [place] Eosinophils/100 WBC (Bld) 2.9 % Normal [facility] Comment on above: Order Comment: Speci men Type: BLOOD SPECIMENOrdering Facility: [facility] Address: [address] [place] [address] Performed By: #### 5 7021-8 ####[facility] LABCLIA [id number] [place] [address] [place] Erythrocyte distribution width (RBC) [Ratio] 14.8 % Normal 11.5-15.0 [facility] Comment on above: Order Comment: Speci men Type: BLOOD SPECIMENOrdering Facility: [facility] Address: [address] [place] [address] Performed By: #### 5 7021-8 ####[facility] LABCLIA [id number] [place] [address] [place] Hematocrit (Bld) [Volume fraction] 50.9 % Normal 39.0-51.0 [facility] Comment on above: Order Comment: Speci men Type: BLOOD SPECIMENOrdering Facility: [facility] Address: [address] [place] [address] Performed By: #### 5 7021-8 ####[facility] LABCLIA [id number] [place] [address] [place] Hemoglobin (Bld) [Mass/Vol] 16.4 g/dL Normal 13.0-17.0 [facility] Comment on above: Order Comment: Speci men Type: BLOOD SPECIMENOrdering Facility: [facility] Address: [address] [place] [address] Performed By: #### 5 7021-8 ####[facility] LABCLIA [id number] [place] [address] [place] Immature granulocytes (Bld) [#/Vol] 0.08 10*3/uL Normal <0.10 [facility] Comment on above: Order Comment: Speci men Type: BLOOD SPECIMENOrdering Facility: [facility] Address: [address] [place] [address] Performed By: #### 5 7021-8 ####[facility] LABIA [id number] [place] [address] [place] Immature granulocytes/100 WBC (Bld) 0.7 % Normal [facility] Comment on above: Order Comment: Speci men Type: BLOOD SPECIMENOrdering Facility: [facility] Address: [address] [place] [address] Performed By: #### 5 7021-8 ####[facility] LABIA [id number] [place] [address] [place] Lymphocytes (Bld) [#/Vol] 0.73 10*3/uL Low 1.00-4.00 [facility] Comment on above: Order Comment: Speci men Type: BLOOD SPECIMENOrdering Facility: [facility] Address: [address] [place] [address] Performed By: #### 5 7021-8 ####[facility] LABCLIA [id number] [place] [address] [place] Lymphocytes/100 WBC (Bld) 6.7 % Normal [facility] Comment on above: Order Comment: Speci men Type: BLOOD SPECIMENOrdering Facility: [facility] Address: [address] [place] [address] Performed By: #### 5 7021-8 ####[facility] LABIA [id number] [place] [address] [place] MCH (RBC) [Entitic mass] 29.8 pg Normal 26.0-34.0 [facility] Comment on above: Order Comment: Speci men Type: BLOOD SPECIMENOrdering Facility: [facility] Address: [address] [place] [address] Performed By: #### 5 7021-8 ####[facility] LABIA [id number] [place] [address] [place] MCHC (RBC) [Mass/Vol] 32.2 g/dL Normal 30.5-36.0 [facility] Comment on above: Order Comment: Speci men Type: BLOOD SPECIMENOrdering Facility: [facility] Address: [address] [place] [address] Performed By: #### 5 7021-8 ####[facility] LABIA [id number] [place] [address] [place] MCV (RBC) [Entitic vol] 92.4 fL Normal 80.0-100.0 [facility] Comment on above: Order Comment: Speci men Type: BLOOD SPECIMENOrdering Facility: [facility] Address: [address] [place] [address] Performed By: #### 5 7021-8 ####[facility] LABIA [id number] [place] [address] [place] Monocytes (Bld) [#/Vol] 0.75 10*3/uL Normal <0.87 [facility] Comment on above: Order Comment: Speci men Type: BLOOD SPECIMENOrdering Facility: [facility] Address: [address] [place] [address] Performed By: #### 5 7021-8 ####[facility] LABCLIA [id number] [place] [address] [place] Monocytes/100 WBC (Bld) 6.9 % Normal [facility] Comment on above: Order Comment: Speci men Type: BLOOD SPECIMENOrdering Facility: [facility] Address: [address] [place] [address] Performed By: #### 5 7021-8 ####[facility] LABCLIA [id number] [place] [address] [place] Neutrophils (Bld) [#/Vol] 8.92 10*3/uL High 1.45-7.50 [facility] Comment on above: Order Comment: Speci men Type: BLOOD SPECIMENOrdering Facility: [facility] Address: [address] [place] [address] Performed By: #### 5 7021-8 ####[facility] LABCLIA [id number] [place] [address] [place] Neutrophils/100 WBC (Bld) 82.4 % Normal [facility] Comment on above: Order Comment: Speci men Type: BLOOD SPECIMENOrdering Facility: [facility] Address: [address] [place] [address] Performed By: #### 5 7021-8 ####[facility] LABCLIA [id number] [place] [address] [place] Nucleated RBC (Bld) [#/Vol] 10*3/uL Normal <0.01 [facility] Comment on above: Order Comment: Speci men Type: BLOOD SPECIMENOrdering Facility: [facility] Address: [address] [place] [address] Performed By: #### 5 7021-8 ####[facility] LABCLIA [id number] [place] [address] [place] Nucleated RBC/100 WBC (Bld) [Ratio] 0.0 /100 WBC Normal [facility] Comment on above: Order Comment: Speci men Type: BLOOD SPECIMENOrdering Facility: [facility] Address: [address] [place] [address] Performed By: #### 5 7021-8 ####[facility] LABCLIA [id number] [place] [address] [place] Platelet mean volume (Bld) [Entitic vol] 11.8 fL Normal 9.0-12.7 [facility] Comment on above: Order Comment: Speci men Type: BLOOD SPECIMENOrdering Facility: [facility] Address: [address] [place] [address] Performed By: #### 5 7021-8 ####[facility] LABCLIA [id number] [place] [address] [place] Platelets (Bld) [#/Vol] 234 10*3/uL Normal 150-400 [facility] Comment on above: Order Comment: Speci men Type: BLOOD SPECIMENOrdering Facility: [facility] Address: [address] [place] [address] Performed By: #### 5 7021-8 ####[facility] LABIA [id number] [place] [address] [place] RBC (Bld) [#/Vol] 5.51 10*6/uL Normal 4.20-6.00 [facility] Comment on above: Order Comment: Speci men Type: BLOOD SPECIMENOrdering Facility: [facility] Address: [address] [place] [address] Performed By: #### 5 7021-8 ####[facility] LABCLIA [id number] [place] [address] [place] WBC (Bld) [#/Vol] 10.83 10*3/uL Normal 3.70-11.00 [facility] Comment on above: Order Comment: Speci men Type: BLOOD SPECIMENOrdering Facility: [facility] Address: [address] [place] [address] Performed By: #### 5 7021-8 ####[facility] SUZANNE [id number] [address] [place] [address] [place] CNOVon 02-25-2024 CNOV Office Visit (FAMPWS ) CLARK LYLES ([id number]) 1935 M Date Time Provider Department 02/25/24 8:20 [facility] During [facility] visit today, we recorded the following information about you: Pulse Respiration Blood pressure Weight 60/minute 16/minute 148/70 68.9 kg Brigitte Segal, MAGAZINE SUPERVISOR.[employer] 02/25/2024 8:51 AM Signed This is a [...] lipoma performed by Dr. Robe Mackenzie at [facility] REVSC OPN/PRQ FEM/POP W/STNT/ANGIOP SM VSL 03-18-14 [...] SHUKRI.Pop Harden (more content not included)... Normal [facility] Comprehensive metabolic 2000 panelon 02-25-2024 Albumin [Mass/Vol] 4.4 g/dL Normal 3.9-4.9 [facility] Comment on above: Order Comment: Speci men Type: BLOOD SPECIMENOrdering Facility: [facility] Address: [address] [place] [address] Performed By: #### 3 040-3, 1798-8, 95219-5 ####[facility] LABCLIA [id number] [place] [address] [place] ALP [Catalytic activity/Vol] 57 U/L Normal 38-113 [facility] Comment on above: Order Comment: Speci men Type: BLOOD SPECIMENOrdering Facility: [facility] Address: [address] [place] [address] Performed By: #### 3 040-3, 1798-02, ####[facility] LABCLIA [id number] [address] [address] [place] ALT [Catalytic activity/Vol] 24 U/L Normal 10-54 [facility] Comment on above: Order Comment: Speci men Type: BLOOD SPECIMENOrdering Facility: [facility] Address: [address] [place] [address] Performed By: #### 3 040-3, 1798-02, ####[facility] LABCLIA [id number] [place] [address] [place] Anion gap [Moles/Vol] 12 mmol/L Normal 8-15 [facility] Comment on above: Order Comment: Speci men Type: BLOOD SPECIMENOrdering Facility: [facility] Address: [address] [place] [address] Performed By: #### 3 040-3, 1798-02, ####[facility] LABCLIA [id number] [place] [address] [place] AST [Catalytic activity/Vol] 28 U/L Normal 14-40 [facility] Comment on above: Order Comment: Speci men Type: BLOOD SPECIMENOrdering Facility: [facility] Address: [address] [place], [place] [address] Performed By: #### 3 040-3, 1798-02, ####[facility] LABCLIA [id number] [address] [address] [place] Bilirubin [Mass/Vol] 1.1 mg/dL Normal 0.2-1.3 [facility] Comment on above: Order Comment: Speci men Type: BLOOD SPECIMENOrdering Facility: [facility] Address: [address] [place], [place] [address] Performed By: #### 3 040-3, 1798-02, ####[facility] LABCLIA [id number] [address] [address] [place] Calcium [Mass/Vol] 9.7 mg/dL Normal 8.5-10.2 [facility] Comment on above: Order Comment: Speci men Type: BLOOD SPECIMENOrdering Facility: [facility] Address: [address] [place] [address] Performed By: #### 3 040-3, 1798-02, ####[facility] LABCLIA [id number] [place] [id number] [place] Chloride [Moles/Vol] 103 mmol/L Normal 98-107 [facility] Comment on above: Order Comment: Speci men Type: BLOOD SPECIMENOrdering Facility: [facility] Address: [address] [place] [address] Performed By: #### 3 040-3, 1798-02, ####[facility] LABCLIA [id number] [place] [address] [place] CO2 [Moles/Vol] 24 mmol/L Normal 22-30 [facility] Comment on above: Order Comment: Speci men Type: BLOOD SPECIMENOrdering Facility: [facility] Address: [address] [place] [address] Performed By: #### 3 040-3, 1798-02, ####[facility] LABCLIA [id number] [place] [id number] [place] Creatinine [Mass/Vol] 0.90 mg/dL Normal 0.73-1.22 [facility] Comment on above: Order Comment: Speci men Type: BLOOD SPECIMENOrdering Facility: [facility] Address: [address] [place] [address] Performed By: #### 3 040-3, 1798-02, ####[facility] LABCLIA [id number] [place] [id number] [place] Creatinine and Glomerular filtration rate.predicted panel (S/P/Bld) 83 mL/min/1.73m??? Normal >=60 [facility] Comment on above: Order Comment: Kailey simons Type: BLOOD SPECIMENOrdering Facility: [facility] Address: [address] [place] [address] Result Comment: Louann mated Glomerular Filtration Rate [...] GFR. Performed By: #### 3 040-3, 1798-02, ####[facility] LABCLIA [id number] [place] [address] [place] Glucose [Mass/Vol] 89 mg/dL Normal 74-99 [facility] Comment on above: Order Comment: Kailey simons Type: BLOOD SPECIMENOrdering Facility: [facility] Address: [address] [place] [address] Result Comment: The [place] [employer] (ADA) provides guidance for cutoff [...] Standards of Medical Care in Diabetes 2016, [place] [employer]. Diabetes Care. 2016.39(Suppl 1). Performed By: #### 3 040-3, 1798-02, ####[facility] LABIA [id number] [place] [id number] [place] Potassium [Moles/Vol] 4.4 mmol/L Normal 3.7-5.1 [facility] Comment on above: Order Comment: Speci men Type: BLOOD SPECIMENOrdering Facility: [facility] Address: [address] [place] [address] Performed By: #### 3 040-3, 1798-02, ####[facility] LABCLIA [id number] [place] [address] [place] Protein [Mass/Vol] 6.1 g/dL Low 6.3-8.0 [facility] Comment on above: Order Comment: Speci men Type: BLOOD SPECIMENOrdering Facility: [facility] Address: [address] [place] [address] Performed By: #### 3 040-3, 1798-02, ####[facility] LABCLIA [id number] [place] [address] [place] Sodium [Moles/Vol] 139 mmol/L Normal 136-144 [facility] Comment on above: Order Comment: Speci men Type: BLOOD SPECIMENOrdering Facility: [facility] Address: [address] [place] [address] Performed By: #### 3 040-3, 1798-02, ####[facility] LABCLIA [id number] [place] [address] [place] Urea nitrogen [Mass/Vol] 15 mg/dL Normal 9-24 [facility] Comment on above: Order Comment: Speci men Type: BLOOD SPECIMENOrdering Facility: [facility] Address: [address] [place] [address] Performed By: #### 3 040-3, 1798-02, ####[facility] LABCLIA [id number] [address] [address] [place] H. pylori IgG IA Qlon 2023 H. PYLORI IGG, QUAL Negative Normal Negative [facility] Comment on above: Order Comment: Kailey kristyn Type: BLOOD SPECIMENOrdering Facility: [facility] Address: [address] [place] [address] Result Comment: To ot exclude H. pylori infection if the specimen collected 3-4 weeks after onset of symptoms. Performed By: #### 1 7859-0 ####[facility] LABCLIA [id number] [place] [address] [place] Lipase SerPl-cCncon 02-25-20 24 Lipase [Catalytic activity/Vol] 41 U/L Normal 16-61 [facility] Comment on above: Order Comment: Georgehakan simons Type: BLOOD SPECIMENOrdering Facility: [facility] Address: [address] [place] [address] Performed By: #### 3 040-3, 1798-8, 73623-2 ####[facility] LABCLIA [id number] [address] [place] Cardiology Visit Reporton Cardiology Visit Report [facility] [address] [place], [place] [address] OFFICE VISIT Date of Service: 02/19/24 MR#: [id number] Acct: [id number] Name: CLARK LYLES Rep #: [id number] : 1935 Provider: CHRISTINE Valdez Age/Sex: 88/M [place] [facility] Status: Signed HPI HPI History of Present [...] air Intake Visit Reasons: O/D for FU Telephone Lineman Required: No Accompanied by: Daughter Is patient [...] in the past year?: No [facility] Medical History COVID-19 virus detected (08/23/20) Anxiety and depression Chronic anemia Acute respiratory failure with hypoxia Hypoxia Pneumonia due to COVID-19 virus GI bleed (12/2019) Atherosclerosis 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 Normal [facility] 12 Lead EKGon 02-09-2024 12 Lead EKG [facility] [address] [place] [address] 12 Lead EKG 02/09/24 0952 MR#: [id number] Acct: [id number] Name: CLARK LYLES Rep #: [id number] : 1935 88 From: Farrah Ruvalcaba MD [...] Normal ECG Confirmed by RITA MANUEL, YUAN ([id number]), art editor FARSHAD PANDYA ([id number]) on 02/13/2024 9:44:33 AM Referred By: AR Confirmed By:ABEL RUVALCABA MD 02/13/24 0944 Date Farrah Ruvalcaba MD CC: Dr. Tamra Ivey MD; CHRISTINE Brown Signed Normal [facility] BNP,B-Type NATRIURETIC PEPTI Giovanni 02-09-2024 Natriuretic peptide B (Bld) [Mass/Vol] 180.0 pg/mL High 0-100 [facility] Comment on above: Performed By: #### L 100.0100, L300.8000, L503.6620, L500.2500, L501.4020 ####[facility] [address] [place], [address] Basic Metabolic Profile (BMP )on 02-09-2024 BUN/CRE 13.1 RATIO Normal 10-20 [facility] Comment on above: Order Comment: 'TROP ' Serial specimen #1, #2 or #3: 1 Performed By: #### L 100.0100, L300.8000, L503.6620, L500.2500, L501.4020 ####[facility] [address] [place], [address] CA,Total 9.0 mg/dL Normal 8.5-10.1 [facility] Comment on above: Order Comment: 'TROP ' Serial specimen #1, #2 or #3: 1 Performed By: #### L 100.0100, L300.8000, L503.6620, L500.2500, L501.4020 ####[facility] [address] [place], [address] Chloride [Moles/Vol] 105 mmol/L Normal 98-[address] [facility] Comment on above: Order Comment: 'TROP ' Serial specimen #1, #2 or #3: 1 Performed By: #### L 100.0100, L300.8000, L503.6620, L500.2500, L501.4020 ####[facility] [address] [place], [address] CO2 [Moles/Vol] 24.0 mmol/L Normal 21.0-32.0 [facility] Comment on above: Order Comment: 'TROP ' Serial specimen #1, #2 or #3: 1 Performed By: #### L 100.0100, L300.8000, L503.6620, L500.2500, L501.4020 ####[facility] [address] [place], [address] Creatinine [Mass/Vol] 0.92 mg/dL Normal 0.70-1.30 [facility] Comment on above: Order Comment: 'TROP ' Serial specimen #1, #2 or #3: 1 Result Comment: The validity of the calculated GFR GFRAA in patients over 70 years has not been determined. Clinical correlation is essential. Performed By: #### L 100.0100, L300.8000, L503.6620, L500.2500, L501.4020 ####[facility] [address] [place], [address] ECRCL 58.61 ml/min Normal [facility] Comment on above: Order Comment: 'TROP ' Serial specimen #1, #2 or #3: 1 Performed By: #### L 100.0100, L300.8000, L503.6620, L500.2500, L501.4020 ####[facility] [address] [place], [address] EST GFR - AA 100 mL/min Normal >60 [facility] Comment on above: Order Comment: 'TROP ' Serial specimen #1, #2 or #3: 1 Result Comment: Afri can Cymraes GFR Calc Performed By: #### L 100.0100, L300.8000, L503.6620, L500.2500, L501.4020 ####[facility] [address] [place], [address] GAP 7 Normal 5-15 [facility] Comment on above: Order Comment: 'TROP ' Serial specimen #1, #2 or #3: 1 Performed By: #### L 100.0100, L300.8000, L503.6620, L500.2500, L501.4020 ####[facility] [address] [place], [address] GFR/1.73 sq M.predicted among non-blacks MDRD (S/P/Bld) [Vol rate/Area] 83 mL/min/{1.73_m2} Normal >60 [facility] Comment on above: Order Comment: 'TROP ' Serial specimen #1, #2 or #3: 1 Result Comment: Non- GFR Calc Performed By: #### L 100.0100, L300.8000, L503.6620, L500.2500, L501.4020 ####[facility] [address] [place], [address] Glucose [Mass/Vol] 115 mg/dL High 74-106 [facility] Comment on above: Order Comment: 'TROP ' Serial specimen #1, #2 or #3: 1 Result Comment: Fast ing Glucose result from 100 to 125 mg/dL suggests IMPAIRED HOMEOSTASIS per A.D.A. criteria. Performed By: #### L 100.0100, L300.8000, L503.6620, L500.2500, L501.4020 ####[facility] [address] [place], [address] Potassium [Moles/Vol] 3.6 mmol/L Normal 3.5-5.1 [facility] Comment on above: Order Comment: 'TROP ' Serial specimen #1, #2 or #3: 1 Performed By: #### L 100.0100, L300.8000, L503.6620, L500.2500, L501.4020 ####[facility] [address] [place], [address] Sodium [Moles/Vol] 136 mmol/L Normal 136-145 [facility] Comment on above: Order Comment: 'TROP ' Serial specimen #1, #2 or #3: 1 Performed By: #### L 100.0100, L300.8000, L503.6620, L500.2500, L501.4020 ####[facility] [address] [place], [address] Urea nitrogen [Mass/Vol] 12 mg/dL Normal 7-18 [facility] Comment on above: Order Comment: 'TROP ' Serial specimen #1, #2 or #3: 1 Performed By: #### L 100.0100, L300.8000, L503.6620, L500.2500, L501.4020 ####[facility] [address] [place], [address] CBC W/Diff, Automatedon 07- Absolute Lymph 0.49 X10 3/uL Low 0.83-4.51 [facility] Comment on above: Performed By: #### L 100.0100, L300.8000, L503.6620, L500.2500, L501.4020 ####[facility] [address] [place], [address] Absolute Neut 7.0 X10 3/uL Normal 2.0-7.7 [facility] Comment on above: Performed By: #### L 100.0100, L300.8000, L503.6620, L500.2500, L501.4020 ####[facility] [address] [place], [address] Basophils/100 WBC (Bld) 0.2 % Normal 0-1 [facility] Comment on above: Performed By: #### L 100.0100, L300.8000, L503.6620, L500.2500, L501.4020 ####[facility] [address] [place], [address] Eosinophils/100 WBC (Bld) 1.4 % Normal 0-5 [facility] Comment on above: Performed By: #### L 100.0100, L300.8000, L503.6620, L500.2500, L501.4020 ####[facility] [address] [place], [address] Erythrocyte distribution width (RBC) [Ratio] 15.9 % High 11.6-14.6 [facility] Comment on above: Performed By: #### L 100.0100, L300.8000, L503.6620, L500.2500, L501.4020 ####[facility] [address] [place], [address] Hematocrit (Bld) [Volume fraction] 46.2 % Normal 40-54 [facility] Comment on above: Performed By: #### L 100.0100, L300.8000, L503.6620, L500.2500, L501.4020 ####[facility] [address] [place], [address] Hemoglobin (Bld) [Mass/Vol] 15.6 g/dL Normal 13.0-16.5 [facility] Comment on above: Performed By: #### L 100.0100, L300.8000, L503.6620, L500.2500, L501.4020 ####[facility] [address] [place], [address] IG% 1.000 High 0.0-0.9 [facility] Comment on above: Result Comment: IG% - Immature Granulocytes (promyelocytes, myelocytes and metamyelocytes) > 1% indicates that a LEFT SHIFT is Present. Performed By: #### L 100.0100, L300.8000, L503.6620, L500.2500, L501.4020 ####[facility] [address] [place], [address] Lymphocytes/100 WBC (Bld) 5.8 % Low 19-41 [facility] Comment on above: Performed By: #### L 100.0100, L300.8000, L503.6620, L500.2500, L501.4020 ####[facility] [address] [place], [address] MCH (RBC) [Entitic mass] 30.8 pg Normal 27.0-32.0 [facility] Comment on above: Performed By: #### L 100.0100, L300.8000, L503.6620, L500.2500, L501.4020 ####[facility] [address] [place], [address] MCHC (RBC) [Mass/Vol] 33.8 g/dL Normal 32-36 [facility] Comment on above: Performed By: #### L 100.0100, L300.8000, L503.6620, L500.2500, L501.4020 ####[facility] [address] [place], [address] MCV (RBC) [Entitic vol] 91.1 fL Normal 80-94 [facility] Comment on above: Performed By: #### L 100.0100, L300.8000, L503.6620, L500.2500, L501.4020 ####[facility] [address] [place], [address] Monocytes/100 WBC (Bld) 8.1 % Normal 0-10 [facility] Comment on above: Performed By: #### L 100.0100, L300.8000, L503.6620, L500.2500, L501.4020 ####[facility] [address] [place], [address] Neutrophils/100 WBC (Bld) 83.5 % High 47-70 [facility] Comment on above: Performed By: #### L 100.0100, L300.8000, L503.6620, L500.2500, L501.4020 ####[facility] [address] [place], [address] Nucleated RBC (Bld) [#/Vol] 0 10*3/uL Normal 0-5 [facility] Comment on above: Performed By: #### L 100.0100, L300.8000, L503.6620, L500.2500, L501.4020 ####[facility] [address] [place], [address] Platelet mean volume (Bld) [Entitic vol] 10.8 fL Normal 6.2-12.0 [facility] Comment on above: Performed By: #### L 100.0100, L300.8000, L503.6620, L500.2500, L501.4020 ####[facility] [address] [place], [address] Platelets (Bld) [#/Vol] 264 10*3/uL Normal 150-450 [facility] Comment on above: Performed By: #### L 100.0100, L300.8000, L503.6620, L500.2500, L501.4020 ####[facility] [address] [place], [address] RBC (Bld) [#/Vol] 5.07 10*6/uL Normal 4.6-6.2 [place] Comment on above: Performed By: #### L 100.0100, L300.8000, L503.6620, L500.2500, L501.4020 ####[facility] [address] [place], [address] RDW SD 53.1 fl High 35.1-43.9 [facility] Comment on above: Performed By: #### L 100.0100, L300.8000, L503.6620, L500.2500, L501.4020 ####[facility] [address] [place], [address] WBC (Bld) [#/Vol] 8.4 10*3/uL Normal 4.4-11.0 [facility] Comment on above: Performed By: #### L 100.0100, L300.8000, L503.6620, L500.2500, L501.4020 ####[facility] [address] [place], [address] Chest PA and Lateralon 02-08 Chest PA and Lateral [facility] Imaging Services [address] [place] [address] Chest PA and Lateral MR#: [id number] Acct: [id number] Name: TRUPTICLARK LAMA Rep #: [id number] : 1935 M 88 From: Yana Sampson MD PCP: CHRISTINE Brown Status: [facility] ER Study: Chest PA and Lateral Date of Exam: 02/09/24 Exam# [id number] Ordering Dr: Tamra Ivey MD 9:[id number] INDICATION: Shortness of breath EXAMINATION/TECHNIQUE: X-RAY - [...] CC: Dr. Tamra Ivey MD; CHRISTINE Brown Assistant Center Manager: Signed Normal [facility] D-Dimer Quantitative (DVT/PE )on 02-09-2024 D-DIMER QUANT 0.34 FEU/ug/m Normal 0.27-0.49 [facility] Comment on above: Result Comment: NORM AL D-Dimer level (<0.50) indicates no DVT or PE. Performed By: #### L 100.0100, L300.8000, L503.6620, L500.2500, L501.4020 ####[facility] [address] [facility] [place], [address] Emergency Department Summary on 02-09-2024 Emergency Department Summary [facility] Medical Records Department [address] [place] [address] Emergency Department Summary 02/09/24 MR#: [id number] Acct: [id number] Name: CLARK LYLES Rep #: [id number] : 1935 88 From: Tamra Ivey MD [...] CHF. He has not noted peripheral swelling. [facility] Medical History COVID-19 virus detected (08/23/20) Anxiety and depression Chronic anemia Acute respiratory failure with hypoxia Hypoxia Pneumonia due to COVID-19 virus GI bleed (12/2019) Atherosclerosis of coronary artery of [place] heart without angina pectoris Peripheral vascular occlusive [...] Neurologic Neurologi (more content not included)... Normal [facility] L501.4020on 02-09-2024 TROPONIN-I HS 7 pg/mL Normal 3.0-78.0 [facility] Comment on above: Order Comment: 'TROP ' Serial specimen #1, #2 or #3: 1 Result Comment: Peg jiménez Note: New Test Units and Gender Specific Reference Ranges. For more information see Policy Stat Procedure [place] High Sensitivity Troponin (TNIH) and attachments. Performed By: #### L 100.0100, L300.8000, L503.6620, L500.2500, L501.4020 ####[facility] [address] [place], [address] [facility] CLARK LYLES ([id number]) 1935 M Date Time Provider Department 12/28/23 [facility] During your visit today, we recorded the [...] daily Meds Comments as of 04/18/2021: Taking [employer]. Problem List As Of Date 12/28/2023 Noted [...] chronic blood los*01/27/2020 Coronary artery disease involving [place] rabago*12/22/2020 S/P primary angioplasty with coronary stent [Z9*12/22/2020 Fall from standing [W19.XXXA] 09/20/2021 Encounter for support and coordination of trans*08/11/2023 Acute respiratory failure with hypoxia (HCC) [J*09/25/2023 Letter Text Encounter Status:Closed by SHIRLEY RIVERA on 01/04/24 Normal [facility] CBC W Auto Differential pane l (Bld)on 12-27-2023 Basophils (Bld) [#/Vol] 0.04 10*3/uL Normal <0.11 [facility] Comment on above: Order Comment: Speci men Type: BLOOD SPECIMENOrdering Facility: [facility] Address: [address] [place] [address] Performed By: #### 5 7021-8 ####[facility] LABCLIA [id number] [place] [address] [place] Basophils/100 WBC (Bld) 0.5 % Normal [facility] Comment on above: Order Comment: Speci men Type: BLOOD SPECIMENOrdering Facility: [facility] Address: [address] [place] [address] Performed By: #### 5 7021-8 ####[facility] LABCLIA [id number] [place] [address] [place] Differential cell count method Nom (Bld) Auto Normal [facility] Comment on above: Order Comment: Speci men Type: BLOOD SPECIMENOrdering Facility: [facility] Address: [address] [place] [address] Performed By: #### 5 7021-8 ####[facility] LABCLIA [id number] [place] [address] [place] Eosinophils (Bld) [#/Vol] 0.36 10*3/uL Normal <0.46 [facility] Comment on above: Order Comment: Speci men Type: BLOOD SPECIMENOrdering Facility: [facility] Address: [address] [place] [address] Performed By: #### 5 7021-8 ####[facility] LABIA [id number] [place] [address] [place] Eosinophils/100 WBC (Bld) 4.5 % Normal [facility] Comment on above: Order Comment: Speci men Type: BLOOD SPECIMENOrdering Facility: [facility] Address: [address] [place] [address] Performed By: #### 5 7021-8 ####[facility] LABIA [id number] [place] [address] [place] Erythrocyte distribution width (RBC) [Ratio] 16.4 % High 11.5-15.0 [facility] Comment on above: Order Comment: Speci men Type: BLOOD SPECIMENOrdering Facility: [facility] Address: [address] [place] [address] Performed By: #### 5 7021-8 ####[facility] LABIA [id number] [place] [address] [place] Hematocrit (Bld) [Volume fraction] 47.6 % Normal 39.0-51.0 [facility] Comment on above: Order Comment: Speci men Type: BLOOD SPECIMENOrdering Facility: [facility] Address: [address] [place] [address] Performed By: #### 5 7021-8 ####[facility] LABIA [id number] [place] [address] [place] Hemoglobin (Bld) [Mass/Vol] 15.7 g/dL Normal 13.0-17.0 [facility] Comment on above: Order Comment: Speci men Type: BLOOD SPECIMENOrdering Facility: [facility] Address: [address] [place] [address] Performed By: #### 5 7021-8 ####[facility] LABCLIA [id number] [place] [address] [place] Immature granulocytes (Bld) [#/Vol] 0.07 10*3/uL Normal <0.10 [facility] Comment on above: Order Comment: Speci men Type: BLOOD SPECIMENOrdering Facility: [facility] Address: [address] [place] [address] Performed By: #### 5 7021-8 ####[facility] LABCLIA [id number] [place] [address] [place] Immature granulocytes/100 WBC (Bld) 0.9 % Normal [facility] Comment on above: Order Comment: Speci men Type: BLOOD SPECIMENOrdering Facility: [facility] Address: [address] [place] [address] Performed By: #### 5 7021-8 ####[facility] LABIA [id number] [place] [address] [place] Lymphocytes (Bld) [#/Vol] 0.72 10*3/uL Low 1.00-4.00 [facility] Comment on above: Order Comment: Speci men Type: BLOOD SPECIMENOrdering Facility: [facility] Address: [address] [place] [address] Performed By: #### 5 7021-8 ####[facility] LABIA [id number] [place] [address] [place] Lymphocytes/100 WBC (Bld) 8.9 % Normal [facility] Comment on above: Order Comment: Speci men Type: BLOOD SPECIMENOrdering Facility: [facility] Address: [address] [place] [address] Performed By: #### 5 7021-8 ####[facility] LABIA [id number] [place] [address] [place] MCH (RBC) [Entitic mass] 30.5 pg Normal 26.0-34.0 [facility] Comment on above: Order Comment: Speci men Type: BLOOD SPECIMENOrdering Facility: [facility] Address: [address] [place] [address] Performed By: #### 5 7021-8 ####[facility] LABCLIA [id number] [place] [address] [place] MCHC (RBC) [Mass/Vol] 33.0 g/dL Normal 30.5-36.0 [facility] Comment on above: Order Comment: Speci men Type: BLOOD SPECIMENOrdering Facility: [facility] Address: [address] [place] [address] Performed By: #### 5 7021-8 ####[facility] LABIA [id number] [place] [address] [place] MCV (RBC) [Entitic vol] 92.6 fL Normal 80.0-100.0 [facility] Comment on above: Order Comment: Speci men Type: BLOOD SPECIMENOrdering Facility: [facility] Address: [address] [place] [address] Performed By: #### 5 7021-8 ####[facility] LABIA [id number] [place] [address] [place] Monocytes (Bld) [#/Vol] 0.84 10*3/uL Normal <0.87 [facility] Comment on above: Order Comment: Speci men Type: BLOOD SPECIMENOrdering Facility: [facility] Address: [address] [place] [address] Performed By: #### 5 7021-8 ####[facility] LABIA [id number] [place] [address] [place] Monocytes/100 WBC (Bld) 10.4 % Normal [facility] Comment on above: Order Comment: Speci men Type: BLOOD SPECIMENOrdering Facility: [facility] Address: [address] [place] [address] Performed By: #### 5 7021-8 ####[facility] LABCLIA [id number] [place] [address] [place] Neutrophils (Bld) [#/Vol] 6.02 10*3/uL Normal 1.45-7.50 [facility] Comment on above: Order Comment: Speci men Type: BLOOD SPECIMENOrdering Facility: [facility] Address: [address] [place] [address] Performed By: #### 5 7021-8 ####[facility] LABCLIA [id number] [place] [address] [place] Neutrophils/100 WBC (Bld) 74.8 % Normal [facility] Comment on above: Order Comment: Speci men Type: BLOOD SPECIMENOrdering Facility: [facility] Address: [address] [place] [address] Performed By: #### 5 7021-8 ####[facility] LABCLIA [id number] [place] [address] [place] Nucleated RBC (Bld) [#/Vol] 10*3/uL Normal <0.01 [facility] Comment on above: Order Comment: Speci men Type: BLOOD SPECIMENOrdering Facility: [facility] Address: [address] [place] [address] Performed By: #### 5 7021-8 ####[facility] LABCLIA [id number] [place] [address] [place] Nucleated RBC/100 WBC (Bld) [Ratio] 0.0 /100 WBC Normal [facility] [facility] Comment on above: Order Comment: Speci men Type: BLOOD SPECIMENOrdering Facility: [facility] Address: [address] [place] [address] Performed By: #### 5 7021-8 ####[facility] LABCLIA [id number] [place] [address] [place] Platelet mean volume (Bld) [Entitic vol] 11.6 fL Normal 9.0-12.7 [facility] Comment on above: Order Comment: Speci men Type: BLOOD SPECIMENOrdering Facility: [facility] Address: [address] [place] [address] Performed By: #### 5 7021-8 ####[facility] LABCLIA [id number] [place] [address] [place] Platelets (Bld) [#/Vol] 209 10*3/uL Normal 150-400 [facility] Comment on above: Order Comment: Speci men Type: BLOOD SPECIMENOrdering Facility: [facility] Address: [address] [place] [address] Performed By: #### 5 7021-8 ####[facility] LABCLIA [id number] [place] [address] [place] RBC (Bld) [#/Vol] 5.14 10*6/uL Normal 4.20-6.00 [facility] Comment on above: Order Comment: Speci men Type: BLOOD SPECIMENOrdering Facility: [facility] Address: [address] [place] [address] Performed By: #### 5 7021-8 ####[facility] LABCLIA [id number] [place] [address] [place] WBC (Bld) [#/Vol] 8.05 10*3/uL Normal 3.70-11.00 [facility] Comment on above: Order Comment: Speci men Type: BLOOD SPECIMENOrdering Facility: [facility] Address: [address] [place] [address] Performed By: #### 5 7021-8 ####[facility] LABCLIA [id number] [place] [address] [place] Comprehensive metabolic 2000 panelon 12-27-2023 Albumin [Mass/Vol] 4.3 g/dL Normal 3.9-4.9 [facility] Comment on above: Order Comment: Speci men Type: BLOOD SPECIMENOrdering Facility: [facility] Address: [address] [place] [address] Performed By: #### 2 4323-8, , ####[facility] LABCLIA [id number] [place] [address] [place] ALP [Catalytic activity/Vol] 57 U/L Normal 38-113 [facility] Comment on above: Order Comment: Speci men Type: BLOOD SPECIMENOrdering Facility: [facility] Address: [address] [place] [address] Performed By: #### 2 4323-8, , ####[facility] LABCLIA [id number] [place] [address] [place] ALT [Catalytic activity/Vol] 15 U/L Normal 10-54 [facility] Comment on above: Order Comment: Speci men Type: BLOOD SPECIMENOrdering Facility: [facility] Address: [address] [place] [address] Performed By: #### 2 4323-8, , ####[facility] LABIA [id number] [place] [address] [place] Anion gap [Moles/Vol] 13 mmol/L Normal 9-18 [facility] Comment on above: Order Comment: Speci men Type: BLOOD SPECIMENOrdering Facility: [facility] Address: [address] [place] [address] Performed By: #### 2 4323-8, , ####[facility] LABIA [id number] [place] [address] [place] AST [Catalytic activity/Vol] 19 U/L Normal 14-40 [facility] Comment on above: Order Comment: Speci men Type: BLOOD SPECIMENOrdering Facility: [facility] Address: [address] [place], [place] [address] Performed By: #### 2 4323-8, , ####[facility] LABCLIA [id number] [address] [address] [place] Bilirubin [Mass/Vol] 1.3 mg/dL Normal 0.2-1.3 [facility] Comment on above: Order Comment: Speci men Type: BLOOD SPECIMENOrdering Facility: [facility] Address: [address] [place] [address] Performed By: #### 2 4323-8, , ####[facility] LABCLIA [id number] [place] [address] [place] Calcium [Mass/Vol] 9.0 mg/dL Normal 8.5-10.2 [facility] Comment on above: Order Comment: Speci men Type: BLOOD SPECIMENOrdering Facility: [facility] Address: [address] [place] [address] Performed By: #### 2 4323-8, , ####[facility] LABIA [id number] [place] [address] [place] Chloride [Moles/Vol] 106 mmol/L High 97-105 [facility] Comment on above: Order Comment: Speci men Type: BLOOD SPECIMENOrdering Facility: [facility] Address: [address] [place], [place] [address] Performed By: #### 2 4323-8, , ####[facility] LABCLIA [id number] [place] [id number] [place] CO2 [Moles/Vol] 23 mmol/L Normal 22-30 [facility] Comment on above: Order Comment: Speci men Type: BLOOD SPECIMENOrdering Facility: [facility] Address: [address] [place], [place] [address] Performed By: #### 2 4323-8, , ####[facility] LABCLIA [id number] [place] [id number] [place] Creatinine [Mass/Vol] 1.00 mg/dL Normal 0.73-1.22 [facility] Comment on above: Order Comment: Speci men Type: BLOOD SPECIMENOrdering Facility: [facility] Address: [address] [place] [address] Performed By: #### 2 4323-8, , ####[facility] LABIA [id number] [place] [address] [place] Creatinine and Glomerular filtration rate.predicted panel (S/P/Bld) 73 mL/min/1.73m??? Normal >=60 [facility] Comment on above: Order Comment: Kailey simons Type: BLOOD SPECIMENOrdering Facility: [facility] Address: [address] [place] [address] Result Comment: Louann mated Glomerular Filtration Rate [...] GFR. Performed By: #### 2 4323-8, , ####[facility] LABIA [id number] [place] [id number] [place] Glucose [Mass/Vol] 93 mg/dL Normal 74-99 [facility] Comment on above: Order Comment: Speci men Type: BLOOD SPECIMENOrdering Facility: [facility] Address: [address] [place] [address] Result Comment: The [place] Diabetes Association (ADA) provides guidance for cutoff [...] Standards of Medical Care in Diabetes 2016, [place]. Diabetes Care. 2016.39(Suppl 1). Performed By: #### 2 4323-8, , ####[facility] LABCLIA [id number] [address] [address] [place] Potassium [Moles/Vol] 4.0 mmol/L Normal 3.7-5.1 [facility] Comment on above: Order Comment: Speci men Type: BLOOD SPECIMENOrdering Facility: [facility] Address: [address] [place] [address] Performed By: #### 2 4323-8, , ####[facility] LABCLIA [id number] [place] [address] [place] Protein [Mass/Vol] 6.0 g/dL Low 6.3-8.0 [facility] Comment on above: Order Comment: Speci men Type: BLOOD SPECIMENOrdering Facility: [facility] Address: [address] [place] [address] Performed By: #### 2 4323-8, , ####[facility] LABCLIA [id number] [address] [address] [place] Sodium [Moles/Vol] 142 mmol/L Normal 136-144 [facility] Comment on above: Order Comment: Speci men Type: BLOOD SPECIMENOrdering Facility: [facility] Address: [address] [place] [address] Performed By: #### 2 4323-8, , ####[facility] LABCLIA [id number] [place] [address] [place] Urea nitrogen [Mass/Vol] 15 mg/dL Normal 9-24 [facility] Comment on above: Order Comment: Speci men Type: BLOOD SPECIMENOrdering Facility: [facility] Address: [address] [place] [address] Performed By: #### 2 4323-8, 32523-2, 21861-6 ####[facility] LABCLIA [id number] [place] [address] [place] Lipid 1996 panelon 4 Cholesterol [Mass/Vol] 131 mg/dL Normal <200 [facility] Comment on above: Order Comment: Speci men Type: BLOOD SPECIMENOrdering Facility: [facility] Address: [address] [place] [address] Result Comment: <200 mg/dL, Desirable 200-239 mg/dL, Borderline high >239 mg/dL, High Performed By: #### 2 4323-8, , 49850-7 ####[facility] LABCLIA [id number] [place] [address] [place] Cholesterol in HDL [Mass/Vol] 38 mg/dL Low >39 [facility] Comment on above: Order Comment: Speci men Type: BLOOD SPECIMENOrdering Facility: [facility] Address: [address] [place] [address] Result Comment: 40-5 9 mg/dL, Acceptable >59 mg/dL, High: Negative risk factor for coronary heart disease <40 mg/dL, Low: Positive risk factor for coronary heart disease Performed By: #### 2 4323-8, 06646-3, 17212-1 ####[facility] LABCLIA [id number] [address] [place] Cholesterol in LDL [Mass/Vol] 75 mg/dL Normal <100 [facility] Comment on above: Order Comment: Speci men Type: BLOOD SPECIMENOrdering Facility: [facility] Address: [address] [place] [address] Result Comment: <100 mg/dL, Optimal 100-129 mg/dL, Near optimal/above optimal 130-159 mg/dL, Borderline high 160-189 mg/dL, High >189 mg/dL, Very high Secondary prevention optimal LDL Cholesterol levels are recommended to be < 70 mg/dL Performed By: #### 2 4323-8, 21553-9, 64924-2 ####[facility] LABCLIA [id number] [place] [address] [place] Cholesterol in LDL/Cholesterol in HDL [Mass ratio] 1.97 {ratio} Normal <2.54 [facility] Comment on above: Order Comment: Kailey men Type: BLOOD SPECIMENOrdering Facility: [facility] Address: [address] [place] [address] Result Comment: Refe rence: 1. National Cholesterol Education Program ATP III Guideline At-A-Glance Quick Desk Reference: National Heart, Lung, and Blood [place]. National Institutes of Health. 2001: NIH Publication No. 01-3305. 2. An International Atherosclerosis Society position paper: global recommendations for the management of dyslipidemia: executive summary, Atherosclerosis. 2014: 232(2):410-413. Performed By: #### 2 4323-8, , ####[facility] LABCLIA [id number] [place] [address] [place] Cholesterol in VLDL [Mass/Vol] 18 mg/dL Normal <30 [facility] Comment on above: Order Comment: Kailey men Type: BLOOD SPECIMENOrdering Facility: [facility] Address: [address] [place] [address] Performed By: #### 2 4323-8, , ####[facility] LABCLIA [id number] [address] [address] [place] Cholesterol non HDL [Mass/Vol] 93 mg/dL Normal <130 [facility] Comment on above: Order Comment: Kailey men Type: BLOOD SPECIMENOrdering Facility: [facility] Address: [address] [place] [address] Result Comment: <130 mg/dL, Optimal 130-159 mg/dL, Near optimal/above optimal 160-189 mg/dL, Borderline high 190-219 mg/dL, High >219 mg/dL, Very high Secondary prevention optimal non HDL Cholesterol levels are recommended to be <100 mg/dL Performed By: #### 2 4323-8, 80477-2, 84909-7 ####[facility] LABCLIA [id number] [place] [address] [place] Cholesterol.total/Chol esterol in HDL [Mass ratio] 3.45 {ratio} Normal <5.10 [facility] Comment on above: Order Comment: Speci men Type: BLOOD SPECIMENOrdering Facility: [facility] Address: [address] [place] [address] Performed By: #### 2 4323-8, , ####[facility] LABCLIA [id number] [place] [address] [place] FASTING TIME 12 hrs Normal [facility] Comment on above: Order Comment: Speci men Type: BLOOD SPECIMENOrdering Facility: [facility] Address: [address] [place] [address] Performed By: #### 2 4323-8, , ####[facility] LABCLIA [id number] [place] [address] [place] Triglyceride [Mass/Vol] 91 mg/dL Normal <150 [facility] Comment on above: Order Comment: Speci men Type: BLOOD SPECIMENOrdering Facility: [facility] Address: [address] [place] [address] Result Comment: <150 mg/dL, Normal 150-199 mg/dL, Borderline high 200-499 mg/dL, High >499 mg/dL, Very high Performed By: #### 2 4323-8, , 09282-6 ####[facility] LABCLIA [id number] [place] [id number] [place] Magnesium SerPl-mCncon 12-26 Magnesium [Mass/Vol] 2.1 mg/dL Normal 1.7-2.3 [facility] Comment on above: Order Comment: Speci men Type: BLOOD SPECIMENOrdering Facility: [facility] Address: [address] [place] [address] Performed By: #### 2 4323-8, 25052-2, 28601-4 ####[facility] LABCLIA [id number] [place] [address] [place] CNOVon 12-25-2023 CNOV Office Visit (TRUDY ) CLARK LYLES ([id number]) 1935 M Date Time Provider Department 12/25/23 9:00 AM Radha DURBIN During your visit today, we recorded the following information about you: Pulse Respiration Blood pressure Weight 61/minute 16/minute 120/68 72.1 kg Radha Durbin PA-C 12/26/2023 2:22 PM Signed 88 year old male with c/o here for follow up. Coronary artery disease involving [place] coronary artery of [place] heart without angina pectoris (primary encounter diagnosis) S/p primary angioplasty with coronary stent Angina pectoris (hcc) Atherosclerosis of aorta (hcc) Essential hypertension, benign Hyperlipidemia ldl goal <100 Pad (peripheral artery disease) (hcc) Cardiovascular interval hx: Sees [place] cardiology: no new records 08/01/2023-08/04/2023 hospitalized [facility]: progressive SOB, hypoxia, bilateral pneumonia suspected atypical but negative cultures. 08/02/2023 echocardiogram [facility]: LV size WNL, mild concentric LVH, [...] to suggest ischemia. 02/08/2022 last cardiology visit [place]: [employer] feels he is doing well and [...] Lymph 1.00 - 4.00 k/uL 0.81 (L) [place]edar% % 9.0 Abs [place] <0.87 k/uL 0.99 (H) Eosin% % 2.6 [...] Ratio <5.10 (more content not included)... Normal [facility] Absolute lymphocyte countOrd ered By: Jerrell Faith on 08-04-2023 Lymphocytes Auto (Unsp spec) [#/Vol] 0.71 10*3/uL 0.83-4.51 [facility] Basophil percentageOrdered B y: Jerrell Faith on 08-04-2023 Basophils/100 WBC (Bld) 0.4 % 0-1 [facility] Chloride [Moles/Vol] 113 mmol/L 98-[address] [facility] Eosinophils/100 WBC (Bld) 4.1 % 0-5 [facility] Glucose [Mass/Vol] 96 mg/dL 74-106 [facility] Neutrophils (Bld) [#/Vol] 6.1 10*3/uL 2.0-7.7 [facility] Neutrophils/100 WBC (Bld) 76.4 % 47-70 [facility] Potassium [Moles/Vol] 4.1 mmol/L 3.5-5.1 [facility] Sodium [Moles/Vol] 141 mmol/L 136-145 [facility] WBC (Bld) [#/Vol] 8.0 10*3/uL 4.4-11.0 [facility] Blood erythrocytes count (nu mber/volume)Ordered By: Jerrell Faith on 08-04-2023 RBC (Bld) [#/Vol] 4.52 10*6/uL 4.6-6.2 [place] Blood hemoglobin measurement (mass/volume)Ordered By: Jerrell Faith on 08-04-2023 Hemoglobin (Bld) [Mass/Vol] 13.4 g/dL 13.0-16.5 [facility] Blood lymphocytes/100 leukoc ytesOrdered By: Jerrell Faith on 08-04-2023 Lymphocytes/100 WBC (Bld) 8.9 % 19-41 [facility] Blood monocytes/100 leukocyt esOrdered By: Jerrell Faith on 08-04-2023 Monocytes/100 WBC (Bld) 9.4 % 0-10 [facility] Blood platelet mean volumeOr dered By: Jerrell Faith on 08-04-2023 Platelet mean volume (Bld) [Entitic vol] 10.7 fL 6.2-12.0 [facility] Determination of erythrocyte mean corpuscular volume (MCV)Ordered By: Jerrell Faith on 08-04-2023 MCV (RBC) [Entitic vol] 92.3 fL 80-94 [facility] Hematocrit Auto (Bld) [Volum e fraction]Ordered By: Jerrell Faith on 08-04-2023 Hematocrit (Bld) [Volume fraction] 41.7 % 40-54 [facility] Laboratory - Chemistry and C hemistry - challengeOrdered By: Jerrell Faith on 08-04-2023 CO2 [Moles/Vol] 25.0 mmol/L 21.0-32.0 [facility] Urea nitrogen/Creatinine [Mass ratio] 22.1 mg/mg 10-20 [facility] - Hematology and Cell countsOrdered By: Jerrell Faith on 08-04-2023 Erythrocyte distribution width (RBC) [Entitic vol] 49.3 fL 35.1-43.9 [facility] Erythrocyte distribution width (RBC) [Ratio] 14.6 % 11.6-14.6 [facility] Immature granulocytes/100 WBC (Bld) 0.800 % 0.0-0.9 [facility] Comment on above: IG% - Immature Granu locytes (promyelocytes, myelocytes and metamyelocytes) > 1% indicates that a LEFT SHIFT is Present. MCH (RBC) [Entitic mass] 29.6 pg 27.0-32.0 [facility] Nucleated RBC/100 WBC (Bld) [Ratio] 0 % 0-5 [facility] MCHC Auto (RBC) [Mass/Vol]Or dered By: Jerrell Faith on 08-04-2023 MCHC (RBC) [Mass/Vol] 32.1 g/dL 32-36 [facility] No Panel InformationOrdered By: Jerrell Faith on 08-04-2023 Estimated Creatinine Clearance Calc 66.51 ml/min [facility] Estimated GFR (MDRD) Amer 115 mL/min >60 [facility] Comment on above: GFR Calc Estimated GFR (MDRD) Non-Af Amer 95 mL/min >60 [facility] Comment on above: Non- GFR Calc Platelets bldOrdered By: Ismael Faith on 08-04-2023 Platelets (Bld) [#/Vol] 186 10*3/uL 150-450 [facility] Serum or plasma calcium nichole urement (mass/volume)Ordered By: Jerrell Faith on 08-04-2023 Calcium [Mass/Vol] 8.9 mg/dL 8.5-10.1 [facility] Serum or plasma creatinine m easurement (mass/volume)Ordered By: Jerrell Faith on 08-04-2023 Creatinine [Mass/Vol] 0.82 mg/dL 0.70-1.30 [facility] Comment on above: The validity of the calculated GFR & GFRAA in patients over 70 years has not been determined. Clinical correlation is essential. Serum or plasma urea nitroge n measurement (mass/volume)Ordered By: Jerrell Faith on 08-04-2023 Urea nitrogen [Mass/Vol] 18 mg/dL 7-18 [facility] Thin prep Papanicolaou smear with manual screeningOrdered By: Jerrell Faith on 08-04-2023 Thin prep Papanicolaou smear with manual screening 3 5-15 [facility] Basophil percentageOrdered B y: Jerrell Fatih on 08-03-2023 Basophil percentage 2.1 mg/dL 2.5-4.9 [place] Bilirubin [Mass/Vol] 0.30 mg/dL 0.20-1.[address] [facility] Comment on above: For patients on eltr ombopag therapy, use of Dimension [place] TBIL is not recommended. Protein [Mass/Vol] 5.6 g/dL 6.4-8.2 [facility] Clostridium difficile detect ion by polymerase chain reactionOrdered By: Jerrell Faith on 08-03-2023 C. difficile DNA CAMERON+probe Ql (Unsp spec) [facility] - Chemistry and C hemistry - challengeOrdered By: Jerrell Faith on 08-03-2023 ALP [Catalytic activity/Vol] 46 U/L 45-117 [facility] ALT [Catalytic activity/Vol] 18 U/L 16-61 [facility] Globulin (S) [Mass/Vol] 2.6 g/dL 2.2-4.2 [facility] Magnesium [Mass/Vol] 1.9 mg/dL 1.6-2.[address] [facility] Serum or plasma albumin nichole urement (mass/volume)Ordered By: Jerrell Faith on 08-03-2023 Albumin [Mass/Vol] 3.0 g/dL 3.2-5.0 [facility] Serum or plasma albumin/glob ulin mass ratioOrdered By: Jerrell Faith on 08-03-2023 Albumin/Globulin [Mass ratio] 1.2 {ratio} 0.9-2.4 [facility] Thin prep Papanicolaou smear with manual screeningOrdered By: Jerrlel Faith on 08-03-2023 Thin prep Papanicolaou smear with manual screening 10 U/L 15-37 [facility] Blood manual differential co mment interpretation (narrative result)Ordered By: Jasmine Tan on 08-02-2023 Manual differential comment Héctor (Bld) [Interp] COMMENT [facility] Comment on above: LYMPHOPENIA. Urine Legionella pneumophila antigen detectionOrdered By: Jasmine Tan on 08-02-2023 L. pneumophila Ag Ql (U) [facility] Absolute lymphocyte countOrd ered By: Lewis Sutton on 08-01-2023 Lymphocytes Auto (Unsp spec) [#/Vol] 0.52 10*3/uL 0.83-4.51 [facility] Basophil percentageOrdered B y: Lewis Sutton on 08-01-2023 Basophils/100 WBC (Bld) 0.2 % 0-1 [facility] Chloride [Moles/Vol] 103 mmol/L 98-[address] [facility] Eosinophils/100 WBC (Bld) 0.9 % 0-5 [facility] Glucose [Mass/Vol] 117 mg/dL 74-106 [facility] Comment on above: Fasting Glucose resu lt from 100 to 125 mg/dL suggests IMPAIRED HOMEOSTASIS per A.D.A. criteria. Neutrophils (Bld) [#/Vol] 7.6 10*3/uL 2.0-7.7 [facility] Neutrophils/100 WBC (Bld) 82.0 % 47-70 [facility] Potassium [Moles/Vol] 3.1 mmol/L 3.5-5.1 [facility] Sodium [Moles/Vol] 136 mmol/L 136-145 [facility] WBC (Bld) [#/Vol] 9.2 10*3/uL 4.4-11.0 [facility] Blood erythrocytes count (nu mber/volume)Ordered By: Lewis Sutton on 08-01-2023 RBC (Bld) [#/Vol] 4.78 10*6/uL 4.6-6.2 [place] Blood hemoglobin measurement (mass/volume)Ordered By: Lewis Sutton on 08-01-2023 Hemoglobin (Bld) [Mass/Vol] 14.8 g/dL 13.0-16.5 [facility] Blood lymphocytes/100 leukoc ytesOrdered By: Lewis Sutton on 08-01-2023 Lymphocytes/100 WBC (Bld) 5.7 % 19-41 [facility] Blood manual differential co mment interpretation (narrative result)Ordered By: Lewis Sutton on 08-01-2023 Manual differential comment Héctor (Bld) [Interp] SCANNED [facility] Blood monocytes/100 leukocyt esOrdered By: Lewis Sutton on 08-01-2023 Monocytes/100 WBC (Bld) 10.3 % 0-10 [facility] Blood platelet mean volumeOr dered By: Lewis Sutton on 08-01-2023 Platelet mean volume (Bld) [Entitic vol] 11.5 fL 6.2-12.0 [facility] Determination of erythrocyte mean corpuscular volume (MCV)Ordered By: Lewis Sutton on 08-01-2023 MCV (RBC) [Entitic vol] 89.5 fL 80-94 [facility] Hematocrit Auto (Bld) [Volum e fraction]Ordered By: Lewis Sutton on 01-03-2024 Hematocrit (Bld) [Volume fraction] 42.8 % 40-54 [facility] Influenza virus A and B and SARS-CoV-2 (COVID-19) Ag panel - Upper respiratory specimOrdered By: Lewis Sutton on 08-01-2023 SARS-CoV-2 (COVID-19) RNA CAMERON+probe Ql (Resp) [facility] - Chemistry and C hemistry - challengeOrdered By: Lewis Sutton on 08-01-2023 CO2 [Moles/Vol] 26.0 mmol/L 21.0-32.0 [facility] Natriuretic peptide B (Bld) [Mass/Vol] 198.3 pg/mL 0-100 [facility] Urea nitrogen/Creatinine [Mass ratio] 11.8 mg/mg 10-20 [facility] - Hematology and Cell countsOrdered By: Lewis Sutton on 08-01-2023 Erythrocyte distribution width (RBC) [Entitic vol] 46.8 fL 35.1-43.9 [facility] Erythrocyte distribution width (RBC) [Ratio] 14.3 % 11.6-14.6 [facility] Immature granulocytes/100 WBC (Bld) 0.900 % 0.0-0.9 [facility] Comment on above: IG% - Immature Granu locytes (promyelocytes, myelocytes and metamyelocytes) > 1% indicates that a LEFT SHIFT is Present. MCH (RBC) [Entitic mass] 31.0 pg 27.0-32.0 [facility] Nucleated RBC/100 WBC (Bld) [Ratio] 0 % 0-5 [facility] - Microbiology an d Antimicrobial susceptibilityOrdered By: Jasmine Tan on 08-01-2023 SARS-CoV-2 (COVID-19) RNA CAMERON+probe Ql (Unsp spec) [facility] MCHC Auto (RBC) [Mass/Vol]Or dered By: Lewis Sutton on 08-01-2023 MCHC (RBC) [Mass/Vol] 34.6 g/dL 32-36 [facility] No Panel InformationOrdered By: Lewis Sutton on 08-01-2023 D-Dimer Quantitative (PE/DVT) 0.47 FEU/ug/m 0.27-0.49 [facility] Comment on above: NORMAL D-Dimer level (<0.50) indicates no DVT or PE. Estimated Creatinine Clearance Calc 50.69 ml/min [facility] Estimated GFR (MDRD) Amer 82 mL/min >60 [facility] Comment on above: GFR Calc Estimated GFR (MDRD) Non-Af Amer 68 mL/min >60 [facility] Comment on above: Non- GFR Calc Troponin I High Sensitivity 8 pg/mL 3.0-78.0 [facility] Comment on above: Please Note: [place] t Units and Gender Specific Reference Ranges. For more information see Policy Stat Procedure [place] High Sensitivity Troponin (TNIH) and attachments. Platelets bldOrdered By: Gabby Sutton on 08-01-2023 Platelets (Bld) [#/Vol] 175 10*3/uL 150-450 [facility] Respiratory pathogens detect ion panel by molecular detection methodOrdered By: Jasmine Tan on 08-01-2023 Respiratory pathogens DNA and RNA panel CAMERON+probe (Resp) [facility] Serum or plasma calcium nichole urement (mass/volume)Ordered By: Lewis Sutton on 08-01-2023 Calcium [Mass/Vol] 8.8 mg/dL 8.5-10.1 [facility] Serum or plasma creatinine m easurement (mass/volume)Ordered By: Lewis Sutton on 08-01-2023 Creatinine [Mass/Vol] 1.10 mg/dL 0.70-1.30 [facility] Comment on above: The validity of the calculated GFR & GFRAA in patients over 70 years has not been determined. Clinical correlation is essential. Serum or plasma urea nitroge n measurement (mass/volume)Ordered By: Lewis Sutton on 08-01-2023 Urea nitrogen [Mass/Vol] 13 mg/dL 7-18 [facility] Serum procalcitonin measurem entOrdered By: Jasmine Tan on 08-01-2023 Procalcitonin [Mass/Vol] 0.07 ng/mL 0.00-0.09 [facility] Comment on above: A procalcitonin (PCT [...] prep Papanicolaou smear with manual screening 12-11 [facility] CBC W Auto Differential pane l (Bld)on 06-28-2023 Basophils (Bld) [#/Vol] 0.05 10*3/uL <0.11 k/uL [facility] Basophils/100 WBC (Bld) 0.5 % [facility] Differential cell count method Nom (Bld) Auto [facility] Eosinophils (Bld) [#/Vol] 0.29 10*3/uL <0.46 k/uL [facility] Eosinophils/100 WBC (Bld) 2.6 % [facility] Erythrocyte distribution width (RBC) [Ratio] 13.9 % 11.5 - 15.0 % [facility] Hematocrit (Bld) [Volume fraction] 50.0 % 39.0 - 51.0 % [facility] Hemoglobin (Bld) [Mass/Vol] 16.7 g/dL 13.0 - 17.0 g/dL [facility] Immature granulocytes (Bld) [#/Vol] 0.10 10*3/uL High <0.10 k/uL [facility] Immature granulocytes/100 WBC (Bld) 0.9 % [facility] Lymphocytes (Bld) [#/Vol] 0.81 10*3/uL Low 1.00 - 4.00 k/uL [facility] Lymphocytes/100 WBC (Bld) 7.4 % [facility] MCH (RBC) [Entitic mass] 31.0 pg 26.0 - 34.0 pg [facility] MCHC (RBC) [Mass/Vol] 33.4 g/dL 30.5 - 36.0 g/dL [facility] MCV (RBC) [Entitic vol] 92.9 fL 80.0 - 100.0 fL [facility] Monocytes (Bld) [#/Vol] 0.99 10*3/uL High <0.87 k/uL [facility] Monocytes/100 WBC (Bld) 9.0 % [facility] Neutrophils (Bld) [#/Vol] 8.78 10*3/uL High 1.45 - 7.50 k/uL [facility] Neutrophils/100 WBC (Bld) 79.6 % [facility] Nucleated RBC (Bld) [#/Vol] <0.01 k/uL [facility] Nucleated RBC/100 WBC (Bld) [Ratio] 0.0 /100 WBC [facility] Platelet mean volume (Bld) [Entitic vol] 11.6 fL 9.0 - 12.7 fL [facility] Platelets (Bld) [#/Vol] 229 10*3/uL 150 - 400 k/uL [facility] RBC (Bld) [#/Vol] 5.38 10*6/uL 4.20 - 6.00 m/uL [facility] WBC (Bld) [#/Vol] 11.02 10*3/uL High 3.70 - 11.00 k/uL [facility] Comprehensive metabolic 2000 panelon 06-28-2023 Albumin [Mass/Vol] 4.3 g/dL 3.9 - 4.9 g/dL [facility] ALP [Catalytic activity/Vol] 53 U/L 38 - 113 U/L [facility] ALT [Catalytic activity/Vol] 26 U/L 10 - 54 U/L [facility] Anion gap [Moles/Vol] 9 mmol/L 9 - 18 mmol/L [facility] AST [Catalytic activity/Vol] 21 U/L 14 - 40 U/L [facility] Bilirubin [Mass/Vol] 1.1 mg/dL 0.2 - 1 .3 mg/dL [facility] Calcium [Mass/Vol] 9.8 mg/dL 8.5 - 10. 2 mg/dL [facility] Chloride [Moles/Vol] 103 mmol/L 97 - 10 5 mmol/L [facility] CO2 [Moles/Vol] 27 mmol/L 22 - 30 mmol/L [facility] Creatinine [Mass/Vol] 1.11 mg/dL 0.73 - 1.22 mg/dL [facility] Estimated Glomerular Filtration Rate 65 mL/min/1.73m >=60 mL/min/1.7 3m [facility] Glucose [Mass/Vol] 94 mg/dL 74 - 99 mg/dL [facility] Potassium [Moles/Vol] 4.1 mmol/L 3.7 - 5.1 mmol/L [facility] Protein [Mass/Vol] 6.3 g/dL 6.3 - 8.0 g/dL [facility] Sodium [Moles/Vol] 139 mmol/L 136 - 144 mmol/L [facility] Urea nitrogen [Mass/Vol] 16 mg/dL 9 - 24 mg/dL [facility] CTA ABD/PEL W IVCONon 2022 [facility] XR LUMBAR GENERAL 3V AP/LAT/ L5-S1on 01-31-2023 [facility] XR Lumbar spine 3 Viewson IMPRESSION: NO EVIDE NCE OF FRACTURE Assistant Center Manager: GINNA Transcribe Date/Time: Jan 31 2023 11:11A Dictated by : RIVERA OLIVAS MD This examination was interpreted and the report reviewed and electronically signed by: RIVERA OLIVAS MD on Jan 31 2023 11:13AM [facility] [place] DIVISION OF RADIOLOGY * * *Final Report* [...] noted. IMPRESSION IMPRESSION: NO EVIDENCE OF FRACTURE Assistant Center Manager: GINNA Transcribe Date/Time: Jan 31 2023 11:11A Dictated by : RIVERA OLIVAS MD This examination was interpreted and the report reviewed and electronically signed by: RIVERA OLIVAS MD on Jan 31 2023 11:13AM EST [facility] Radiology Study observation (narrative) [facility] XR Lumbar spine 3 ViewsOrder ed By: Ccf Provider on 01-31-2023 [facility] UA DIP, URINE (POC)on 2022 BILIRUBIN UA (POCT) Negative Negative [facility] CLARITY UA (POCT) Clear [facility] COLOR UA (POCT) Yellow [facility] GLUCOSE UA (POCT) Negative Negative mg/dL [facility] HEMOGLOBIN/BLOOD UA (POCT) Negative Negative [facility] KETONE UA (POCT) Negative Negative mg/dL [facility] LEUKOCYTES UA (POCT) Negative Negative [facility] NITRITE UA (POCT) Negative Negative [facility] PH UA (POCT) 5.5 4.5 - 8.0 [facility] Protein Ql (U) Negative Negative mg/dL [facility] SPECIFIC GRAVITY UA (POCT) 1.015 1.005 - 1.030 [facility] UROBILINOGEN UA (POCT) 0.2 E.U./dL Stephany l E.U./dL [facility] Office Visit: PAD, recheck diane jocelynradha siteon 05-31-2017 Documentation of current medications (procedure) Done Invalid Interpretation Code [facility] Work Phone: Fall risk assessment No Invalid Interpretation Code [facility] [employer] Work Phone: Tobacco smoking status NHIS Never Invalid Interpretation Code [facility] [employer] Work Phone: Tobacco use [facility] Former smoker Invalid Interpretation Code [facility] [employer] Work Phone: Lab Report: Basic Metabolic Profile (BMP)on 05-18-2017 Anion gap 9 mmol/L Invalid Interpretation Code -15 [facility] [employer] Work Phone: Anion gap 4 molar conc 9 Invalid Interpretation Code 15 [facility] [employer] Work Phone: Calcium mass conc 8.8 mg/dL Invalid Interpretation Code 8.5-10.1 [facility] [employer] Work Phone: Chloride molar conc 108 mmol/L High 98-107 [facility] [employer] Work Phone: CO2 23.0 mmol/L Invalid Interpretation Code 21.0-32.0 [facility] [employer] Work Phone: CO2 ppres (BldV) 23.0 mmol/L Invalid Interpretation Code 21.0-32.0 [facility] [employer] Work Phone: Creatinine mass conc 0.80 mg/dL Invalid Interpretation Code 0.70-1.30 [facility] [employer] Work Phone: eGFR (non-black) 120 mL/min/{1.73_m2} Invalid Interpretation Code >60 [facility] [employer] Work Phone: EST GFR - AA 120 mL/min Invalid Interpretation Code >60 [facility] [employer] Work Phone: GFR/1.73 sq M predicted among non-blacks MDRD vol rate/area (S/P/Bld) 99 mL/min/{1.73_m2} Invalid Interpretation Code >60 [facility] [employer] Work Phone: Glucose mass conc 120 mg/dL High 70-110 [facility] [employer] Work Phone: Potassium molar conc 3.6 mmol/L Invalid Interpretation Code 3.5-5.1 [facility] [employer] Work Phone: Sodium molar conc 140 mmol/L Invalid Interpretation Code 136-145 [facility] [employer] Work Phone: Urea nitrogen mass conc 13 mg/dL Invalid Interpretation Code 7-18 [facility] [employer] Work Phone: Urea nitrogen/Creatinine mass ratio 16.3 RATIO Invalid Interpretation Code 10-20 [facility] [employer] Work Phone: Office Visit: [facility] 05-08-20 17 Documentation of current medications (procedure) Done Invalid Interpretation Code [facility] [employer] Work Phone: Fall risk assessment No Invalid Interpretation Code [facility] [employer] Work Phone: Protein mass conc Done Invalid Interpretation Code [facility] [employer] Work Phone: Tobacco smoking status NHIS Never Invalid Interpretation Code [facility] [employer] Work Phone: Tobacco smoking status NHIS Former smoker Invalid Interpretation Code [facility] [employer] Work Phone: Tobacco use [facility] Former smoker Invalid Interpretation Code [facility] [employer] Work Phone: Vital Signs Date Time Vital Sign Value Performing Clinician Facility 10-16-2024 08:56-0400 Body height 177.[address] Neo Tejeda DO Work Phone: [facility] 10-16-2024 08:56-0400 Body mass index (BMI) [Ratio] 23.8 kg/m2 Dr. Neo Tejeda DO Work Phone: [facility] 10-16-2024 08:56-0400 Body temperature 97.3 [degF] Dr. Neo Tejeda DO Work Phone: [facility] 10-16-2024 08:56-0400 Body weight 75.[address] Neo Tejeda DO Work Phone: [facility] 10-16-2024 08:56-0400 Diastolic blood pressure 65 mm[Hg] Dr. Neo Tejeda DO Work Phone: [facility] 10-16-2024 08:56-0400 Heart rate 73 /min Dr. Neo Tejeda DO Work Phone: [facility] 10-16-2024 08:56-0400 Respiratory rate 20 /min Dr. Neo Tejeda DO Work Phone: [facility] 10-16-2024 08:56-0400 SaO2% (BldA) [Mass fraction] 90 % Dr. Neo Tejeda DO Work Phone: [facility] 10-16-2024 08:56-0400 Systolic blood pressure 121 mm[Hg] Dr. Neo Tejeda DO Work Phone: [facility] 09-19-2024 14:55-0500 Body mass index (BMI) [Ratio] 22.96 kg/m2 Brigitte Suppan [employer] Work Phone: [facility] 09-19-2024 14:55-0500 Body temperature 98.71 [degF] Brigitte Suppan [employer] Work Phone: [facility] 09-19-2024 14:55-0500 Body weight 72.58 kg Brigitte Suppan [employer] Work Phone: [facility] 09-19-2024 14:55-0500 Diastolic blood pressure 62 mm[Hg] Brigitte Suppan [employer] Work Phone: [facility] 09-19-2024 14:55-0500 Heart rate 80 /min Brigitte Suppan [employer] Work Phone: [facility] 09-19-2024 14:55-0500 SaO2% (BldA) [Mass fraction] 90 % Brigitte Suppan [employer] Work Phone: [facility] Comment on above: 3 liters of oxygen 09-19-2024 14:55-0500 Systolic blood pressure 128 mm[Hg] Brigitte Suppan [employer] Work Phone: [facility] 09-15-2024 15:00-0500 Body temperature 97.6 [degF] Dr. Neo Tejeda DO Work Phone: [facility] 09-15-2024 15:00-0500 Diastolic blood pressure 71 mm[Hg] Dr. Neo Tejeda DO Work Phone: 6(859)732-580498 [place] [address] 09-15-2024 15:00-0500 Heart rate 82 /min Dr. Neo Tejeda DO Work Phone: 9(170)189-411298 [place] [address] 09-15-2024 15:00-0500 Respiratory rate 16 /min Dr. Neo Tejeda DO Work Phone: 9(635)794-801598 [place] [address] 09-15-2024 15:00-0500 SaO2% (BldA) [Mass fraction] 93 % Dr. Neo Tejeda DO Work Phone: 9(490)815-747498 [place] [address] 09-15-2024 15:00-0500 Systolic blood pressure 140 mm[Hg] Dr. Neo Tejeda DO Work Phone: 2(230)343-389536 [place] [address] 09-15-2024 10:09-0500 Body weight 73.[address] Neo Tejeda DO Work Phone: 7(786)918-488398 [place] [address] 09-15-2024 09:00-0500 Inhaled oxygen flow rate 3 L/min Dr. Neo Tejeda DO Work Phone: 2(096)152-291798 [place] [address] 09-15-2024 03:59-0500 Body mass index (BMI) [Ratio] 23.1 kg/m2 Dr. Neo Tejeda DO Work Phone: 1(361)743-957298 [place] [address] 09-12-2024 09:19-0500 Inhaled oxygen concentration 34 % Dr. Neo Tejeda DO Work Phone: [facility] 03-27-2024 07:47-0400 Body mass index (BMI) [Ratio] 21.81 kg/m2 Brigitte Segal [employer] Work Phone: [facility] 03-27-2024 07:47-0400 Body weight 68.95 kg Brigitte Segal [employer] Work Phone: [facility] 03-27-2024 07:47-0400 Diastolic blood pressure 67 mm[Hg] Brigitte Suppan [employer] Work Phone: [facility] 03-27-2024 07:47-0400 Heart rate 63 /min Brigitte Suppan [employer] Work Phone: [facility] 03-27-2024 07:47-0400 Respiratory rate 16 /min Brigitte Suppan [employer] Work Phone: [facility] 03-27-2024 07:47-0400 SaO2% (BldA) [Mass fraction] 94 % Brigitte Suppan [employer] Work Phone: [facility] 03-27-2024 07:47-0400 Systolic blood pressure 126 mm[Hg] Brigitte Suppan [employer] Work Phone: [facility] 02-25-2024 08:22-0400 Body mass index (BMI) [Ratio] 21.81 kg/m2 Brigitte Suppan [employer] Work Phone: [facility] 02-25-2024 08:22-0400 Body weight 68.95 kg Brigitte Suppan [employer] Work Phone: [facility] 02-25-2024 08:22-0400 Diastolic blood pressure 70 mm[Hg] Brigitte Suppan [employer] Work Phone: [facility] 02-25-2024 08:22-0400 Heart rate 60 /min Brigitte Suppan [employer] Work Phone: [facility] 02-25-2024 08:22-0400 Respiratory rate 16 /min Brigitte Suppan [employer] Work Phone: [facility] 02-25-2024 08:22-0400 SaO2% (BldA) [Mass fraction] 94 % Brigitte Suppan [employer] Work Phone: [facility] 02-25-2024 08:22-0400 Systolic blood pressure 148 mm[Hg] Brigitte Suppan [employer] Work Phone: [facility] 12-25-2023 08:53-0400 Body mass index (BMI) [Ratio] 22.81 kg/m2 NA Durbin PA-C Work Phone: [facility] 12-25-2023 08:53-0400 Body weight 72.12 kg NA Durbin PA-C Work Phone: [facility] 12-25-2023 08:53-0400 Diastolic blood pressure 68 mm[Hg] NA Durbin PA-C Work Phone: [facility] 12-25-2023 08:53-0400 Heart rate 61 /min NA Durbin PA-C Work Phone: [facility] 12-25-2023 08:53-0400 Respiratory rate 16 /min NA Durbin PA-C Work Phone: [facility] 12-25-2023 08:53-0400 SaO2% (BldA) [Mass fraction] 95 % NA Durbin PA-C Work Phone: [facility] 12-25-2023 08:53-0400 Systolic blood pressure 120 mm[Hg] NA Durbin PA-C Work Phone: [facility] 09-25-2023 09:07-0500 Body weight 72.12 kg NA Durbin PA-C Work Phone: [facility] 09-25-2023 09:07-0500 Diastolic blood pressure 62 mm[Hg] NA Durbin PA-C Work Phone: [facility] 09-25-2023 09:07-0500 Heart rate 66 /min NA Durbin PA-C Work Phone: [facility] 09-25-2023 09:07-0500 Respiratory rate 16 /min NA Durbin PA-C Work Phone: [facility] 09-25-2023 09:07-0500 SaO2% (BldA) [Mass fraction] 92 % NA Durbin PA-C Work Phone: [facility] 09-25-2023 09:07-0500 Systolic blood pressure 110 mm[Hg] NA Durbin PA-C Work Phone: [facility] 08-04-2023 12:46-0500 SaO2% (BldA) [Mass fraction] 98 % PA NA Durbin PA Work Phone: [facility] 08-04-2023 10:58-0500 Heart rate 75 /min PA NA Durbin PA Work Phone: [facility] 08-04-2023 10:58-0500 Respiratory rate 16 /min PA NA Durbin PA Work Phone: [facility] 08-04-2023 09:00-0500 Body temperature 97.2 [degF] PA NA Durbin PA Work Phone: [facility] 08-04-2023 09:00-0500 Diastolic blood pressure 62 mm[Hg] PA NA Durbin PA Work Phone: [facility] 08-04-2023 09:00-0500 Systolic blood pressure 138 mm[Hg] PA NA Durbin PA Work Phone: [facility] 08-04-2023 07:20-0500 Inhaled oxygen flow rate 4 L/min PA NA Durbin PA Work Phone: [facility] 08-04-2023 03:07-0500 Body mass index (BMI) [Ratio] 22.6 kg/m2 PA NA Durbin PA Work Phone: [facility] 08-04-2023 03:07-0500 Body weight 71.4 kg PA NA Durbin PA Work Phone: [facility] 08-02-2023 13:52-0500 Body height 177.8 cm PA NA Durbin PA Work Phone: [facility] 08-01-2023 20:53-0500 Inhaled oxygen concentration 92 % PA NA Durbin PA Work Phone: [facility] 08-01-2023 16:17-0500 Diastolic blood pressure 76 mm[Hg] [facility] 08-01-2023 16:17-0500 Heart rate 77 /min [facility] 08-01-2023 16:17-0500 SaO2% (BldA) [Mass fraction] 91 % [facility] 08-01-2023 16:17-0500 Systolic blood pressure 150 mm[Hg] [facility] 08-01-2023 16:16-0500 Inhaled oxygen flow rate 5 L/min [facility] 08-01-2023 16:16-0500 Respiratory rate 24 /min [facility] 08-01-2023 12:44-0500 Body height 177.[address] [facility] 08-01-2023 12:44-0500 Body mass index (BMI) [Ratio] 23.3 kg/m2 [facility] 08-01-2023 12:44-0500 Body temperature 97.9 [degF] [facility] 08-01-2023 12:44-0500 Body weight 73.[address] [facility] 06-28-2023 08:57-0500 Body weight 70.94 kg NA Durbin PA-C Work Phone: [facility] 06-28-2023 08:57-0500 Diastolic blood pressure 70 mm[Hg] NA Durbin PA-C Work Phone: [facility] 06-28-2023 08:57-0500 Heart rate 60 /min NA Durbin PA-C Work Phone: [facility] 06-28-2023 08:57-0500 Respiratory rate 16 /min NA Durbin PA-C Work Phone: [facility] 06-28-2023 08:57-0500 SaO2% (BldA) [Mass fraction] 97 % NA Durbin PA-C Work Phone: [facility] 06-28-2023 08:57-0500 Systolic blood pressure 122 mm[Hg] NA Durbin PA-C Work Phone: [facility] 05-25-2023 11:07-0400 Body temperature 98.1 [degF] Jair Marvin MD Work Phone: [facility] 05-25-2023 11:07-0400 Body weight 71.67 kg Jair Marvin MD Work Phone: [facility] 05-25-2023 11:07-0400 Diastolic blood pressure 69 mm[Hg] Jair Marvin MD Work Phone: [facility] 05-25-2023 11:07-0400 Heart rate 70 /min Jair Marvin MD Work Phone: [facility] 05-25-2023 11:07-0400 Respiratory rate 18 /min Jair Marvin MD Work Phone: [facility] 05-25-2023 11:07-0400 SaO2% (BldA) [Mass fraction] 93 % Jair Marvin MD Work Phone: [facility] 05-25-2023 11:07-0400 Systolic blood pressure 132 mm[Hg] Jair Marvin MD Work Phone: [facility] 02-08-2023 09:28-0400 Body weight 71.67 kg NA Durbin PA-C Work Phone: [facility] 02-08-2023 09:28-0400 Diastolic blood pressure 80 mm[Hg] NA Durbin PA-C Work Phone: [facility] 02-08-2023 09:28-0400 Heart rate 56 /min NA Durbin PA-C Work Phone: [facility] 02-08-2023 09:28-0400 Respiratory rate 16 /min NA Durbin PA-C Work Phone: [facility] 02-08-2023 09:28-0400 SaO2% (BldA) [Mass fraction] 96 % NA Durbin PA-C Work Phone: [facility] 02-08-2023 09:28-0400 Systolic blood pressure 148 mm[Hg] NA Durbin PA-C Work Phone: [facility] 01-31-2023 10:43-0400 Body temperature 97.9 [degF] Rebekah Athy PA-C Work Phone: [facility] 01-31-2023 10:43-0400 Body weight 73.57 kg Rebekah Athy PA-C Work Phone: [facility] 01-31-2023 10:43-0400 Diastolic blood pressure 86 mm[Hg] Rebekah Athy PA-C Work Phone: [facility] 01-31-2023 10:43-0400 Heart rate 58 /min Rebekah Athy PA-C Work Phone: [facility] 01-31-2023 10:43-0400 Respiratory rate 18 /min Rebekah Athy PA-C Work Phone: [facility] 01-31-2023 10:43-0400 SaO2% (BldA) [Mass fraction] 97 % Rebekah Athy PA-C Work Phone: [facility] 01-31-2023 10:43-0400 Systolic blood pressure 164 mm[Hg] Rebekah Athy PA-C Work Phone: [facility] 11-27-2022 14:57-0400 Body weight 73.03 kg NA Durbin PA-C Work Phone: [facility] 11-27-2022 14:57-0400 Diastolic blood pressure 68 mm[Hg] NA Durbin PA-C Work Phone: [facility] 11-27-2022 14:57-0400 Heart rate 57 /min NA Durbin PA-C Work Phone: [facility] 11-27-2022 14:57-0400 SaO2% (BldA) [Mass fraction] 96 % NA Durbin PA-C Work Phone: [facility] 11-27-2022 14:57-0400 Systolic blood pressure 130 mm[Hg] NA Durbin PA-C Work Phone: [facility] 06-21-2022 23:01-0500 Heart rate 85 /min PA NA Durbin PA Work Phone: [facility] Work Phone: 06-21-2022 23:01-0500 Respiratory rate 15 /min PA NA Durbin PA Work Phone: [facility] Work Phone: 06-21-2022 23:01-0500 SaO2% (BldA) [Mass fraction] 98 % PA NA Durbin PA Work Phone: [facility] Work Phone: 06-21-2022 21:53-0500 Body height 177.8 cm PA NA Durbin PA Work Phone: [facility] Work Phone: 06-21-2022 21:53-0500 Body mass index (BMI) [Ratio] 22.9 kg/m2 PA NA Durbin PA Work Phone: [facility] Work Phone: 06-21-2022 21:53-0500 Body temperature 97.8 [degF] PA NA Durbin PA Work Phone: [facility] Work Phone: 06-21-2022 21:53-0500 Body weight 72.57 kg PA NA Durbin PA Work Phone: [facility] Work Phone: 06-21-2022 21:53-0500 Diastolic blood pressure 80 mm[Hg] PA NA Durbin PA Work Phone: [facility] Work Phone: 06-21-2022 21:53-0500 Systolic blood pressure 166 mm[Hg] PA NA Durbin PA Work Phone: [facility] Work Phone: 02-08-2022 12:26-0400 Body height 177.[address] Brian Mackenzie III Work Phone: [facility] Work Phone: 02-08-2022 12:26-0400 Body mass index (BMI) [Ratio] 23.5 kg/m2 Dr. Brian Mackenzie III Work Phone: [facility] Work Phone: 02-08-2022 12:26-0400 Body weight 74.[address] Brian Mackenzie III Work Phone: [facility] Work Phone: 02-08-2022 12:26-0400 Diastolic blood pressure 69 mm[Hg] Dr. Brian Mackenzie III Work Phone: [facility] Work Phone: 02-08-2022 12:26-0400 Heart rate 56 /min Dr. Brian Mackenzie III Work Phone: [facility] Work Phone: 02-08-2022 12:26-0400 Respiratory rate 16 /min Dr. Brian Mackenzie III Work Phone: [facility] Work Phone: 02-08-2022 12:26-0400 SaO2% (BldA) [Mass fraction] 96 % Dr. Brian Mackenzie III Work Phone: [facility] Work Phone: 02-08-2022 12:26-0400 Systolic blood pressure 125 mm[Hg] Dr. Brian Mackenzie III Work Phone: [facility] Work Phone: 05-31-2017 08:40-0400 BMI (Body Mass Index) 23.11 kg/m2 Quan Mackenzie MD [facility] Work Phone: 05-31-2017 08:40-0400 Body Temperature 97.9 [degF] Quan Mackenzie MD [facility] Work Phone: 05-31-2017 08:40-0400 BP Diastolic 70 mm[Hg] Quan Mackenzie MD [facility] Work Phone: 05-31-2017 08:40-0400 BP Systolic 150 mm[Hg] Quan Mackenzie MD [facility] Work Phone: 05-31-2017 08:40-0400 Height 182.88 cm Quan Mackenzie MD [facility] Work Phone: 05-31-2017 08:40-0400 Pulse (Heart Rate) 74 /min Quan Mackenzie MD [facility] Work Phone: 05-31-2017 08:40-0400 Respiratory Rate 20 /min Quan Mackenzie MD [facility] Work Phone: 05-31-2017 08:40-0400 Weight 77.29 kg Quan Mackenzie MD [facility] Work Phone: 05-08-2017 14:55-0400 BMI (Body Mass Index) 23.08 kg/m2 Quan Mackenzie MD [facility] Work Phone: 05-08-2017 14:55-0400 Body Temperature 97.5 [degF] Quan Mackenzie MD [facility] Work Phone: 05-08-2017 14:55-0400 BP Diastolic 76 mm[Hg] Quan Mcakenzie MD [facility] Work Phone: 05-08-2017 14:55-0400 BP Systolic 175 mm[Hg] Quan Mackenzie MD [facility] Work Phone: 05-08-2017 14:55-0400 Height 182.88 cm Quan Mackenzie MD [facility] [employer] Work Phone: 05-08-2017 14:55-0400 Pulse (Heart Rate) 67 /min Quan Mackenzie MD [facility] Work Phone: 05-08-2017 14:55-0400 Respiratory Rate 20 /min Quan Mackenzie MD [facility] Work Phone: 05-08-2017 14:55-0400 Weight 77.2 kg Quan Mackenzie MD [facility] Work Phone: Encounters Encounter Date Encounter Type Care Provider Facility Start: 10-31-2024 End: 10-31-2024 Telephone encounter Brigitte Segal MAGAZINE SUPERVIS[employer] Work Phone: [facility] Comment on above: [id number]; Initial Consu lt Start: 10-31-2024 ambulatory Brigitte Suppan Facil ity:[facility] Start: 10-27-2024 End: 10-27-2024 Telephone encounter Brigitte Segal APRN.[employer] Work Phone: [facility] Comment on above: Orders; patient POC Start: 10-16-2024 End: 10-16-2024 Patient encounter procedure Kalyn Taylor [facility] [facility] Work Phone: Start: 10-16-2024 End: 10-16-2024 ambulatory Brigitte Suppan [place] Start: 10-15-2024 End: 10-30-2024 Telephone encounter Brigitte Segal APRN.[employer] Work Phone: [facility] Comment on above: Patient Update Start: 10-03-2024 End: 10-03-2024 Telephone encounter Brigitte Segal APRN.[employer] Work Phone: [facility] Comment on above: Oxygen; FYI-No Actio n Needed (/) Start: 09-19-2024 End: 09-19-2024 ambulatory BRIGITTE Lemos SUPPHEAVENLY Facility:[facility] Start: 09-19-2024 End: 09-19-2024 Office outpatient visit 25 minutes Brigitte Segal APRN.[employer] Work Phone: [facility] Comment on above: Chronic insomnia (Pr imary Dx); Benign prostatic hyperplasia with nocturia; Screening for depression; Hyperlipidemia LDL goal <100; Essential hypertension, benign; Parkinson's disease without dyskinesia, unspecified whether manifestations fluctuate (HCC); Coronary artery disease involving [place] coronary artery of [place] heart without angina pectoris; Acute respiratory failure with hypoxia (HCC) Start: 09-19-2024 End: 09-19-2024 Telephone encounter Brigitte Segal APRN.[employer] Work Phone: [facility] Comment on above: Home Health PT Plan of Care Start: 09-17-2024 End: 09-22-2024 Telephone encounter Brigitte Segal APRN.[employer] Work Phone: [facility] Comment on above: Senior Care Plan of Care Start: 09-15-2024 End: 09-15-2024 Telephone encounter Brigitte Segal MAGAZINE SUPERVISOR[employer] Work Phone: [facility] Comment on above: Home Health Orders Start: 09-15-2024 Non-patient / Non-visit Dr. John Soliz [facility] Work Phone: Start: 09-14-2024 Non-patient / Non-visit Dr. Lester Eduardo [facility] Work Phone: Start: 09-13-2024 Non-patient / Non-visit Dr. Lester Eduardo [facility] Work Phone: Start: 09-12-2024 Non-patient / Non-visit Dr. Lester Eduardo [facility] Work Phone: Start: 09-11-2024 Non-patient / Non-visit Dr. Lester Eduardo [facility] Work Phone: Start: 09-10-2024 Non-patient / Non-visit Dr. Lester Eduardo [facility] Work Phone: Start: 09-09-2024 End: 09-09-2024 Telephone encounter Brigitte Segal MAGAZINE SUPERVISOR[employer] Work Phone: [facility] Start: 09-09-2024 Non-patient / Non-visit Dr. Lester Eduardo [facility] Work Phone: Start: 09-08-2024 ambulatory Brigitte Segal Facil ity:[facility] Start: 09-08-2024 Non-patient / Non-visit [facility]. Elmer MANUEL [facility] Start: 09-08-2024 Non-patient / Non-visit Dr. Lester Eduardo [facility] Work Phone: Start: 09-07-2024 Non-patient / Non-visit Dr. Jerrell badillo [facility] Work Phone: Start: 09-07-2024 ambulatory Lester Perdomo Facility:[facility] Start: 09-07-2024 End: 09-15-2024 Evaluation and management of inpatient Jerrell Faith Facility:[facility] Start: 03-27-2024 End: 03-27-2024 ambulatory BRIGITTE A SUPPAN Facility:[facility] Start: 03-27-2024 End: 03-27-2024 Office outpatient visit 15 minutes Brigitte A Suppan [employer]INE SUPERVISOR[employer] Work Phone: [facility] Comment on above: S/P primary angiopla sty with coronary stent; PAD (peripheral artery disease) (HCC); Hyperlipidemia LDL goal <100; Anxiety state; Benign prostatic hyperplasia with nocturia; Essential hypertension, benign; Left sided abdominal pain Start: 03-13-2024 Refill Radha Salgado on PA-C Work Phone: [facility] Comment on above: Refill Request Start: 02-28-2024 ambulatory Radha KING Fac ility:[facility] Start: 02-26-2024 Telephone encounter Brigitte A Suppan [employer]AZINE SUPERVISOR[employer] Work Phone: [facility] Start: 02-25-2024 End: 02-25-2024 ambulatory BRIGITTE A SUPPAN Facility:[facility] Start: 02-25-2024 End: 02-25-2024 Office outpatient visit 15 minutes Brigitte A Suppan [employer]AZINE SUPERVISOR[employer] Work Phone: [facility] Comment on above: Left sided abdominal pain (Primary Dx); Essential hypertension, benign Start: 02-19-2024 End: 02-19-2024 ambulatory Radha KING [place] Start: 02-09-2024 End: 02-09-2024 Emergency department patient visit Radha KING Facility:[facility] Start: 12-31-2023 Refill Radha Salgado on PA-C Work Phone: [facility] Comment on above: Refill Request Start: 12-28-2023 Telephone encounter Walter Gomez MD Work Phone: [facility] Comment on above: Results Start: 12-27-2023 End: 12-27-2023 ambulatory CASPER DURBIN Facility:[facility] Start: 12-25-2023 End: 12-25-2023 ambulatory CASPER JUSTIN DURBIN Facility:[facility] Start: 12-25-2023 End: 12-25-2023 Patient encounter procedure Radha Durbin PA-C Work Phone: [facility] [place] Comment on above: Coronary artery dise ase involving [place] coronary artery of [place] heart without angina pectoris (Primary Dx); S/P [...] 12-13-2023 Refill Radha benjamin PA-C Work Phone: [facility] Comment on above: Refill Request Start: 09-25-2023 End: 09-25-2023 Patient encounter procedure Radha Durbin PA-C Work Phone: [facility] Comment on above: Coronary artery dise ase involving [place] coronary artery of [place] heart without angina pectoris; S/P primary angioplasty [...] Non-patient / Non-visit CHRISTINE KING Work Phone: [facility] Work Phone: Start: 08-03-2023 Non-patient / Non-visit PA NA Durbin PA Work Phone: [facility] Work Phone: Start: 08-02-2023 Non-patient / Non-visit PA NANDA Durbin PA Work Phone: [facility] Work Phone: Start: 08-01-2023 End: 08-04-2023 Evaluation and management of inpatient PA NANDA Durbin PA Work Phone: [facility] Work Phone: Start: 08-01-2023 Evaluation and manag ement of inpatient [facility] Work Phone: Start: 07-10-2023 Refill Radha Salgado on PA-C Work Phone: [facility] Comment on above: Refill Request Start: 07-02-2023 Telephone encounter Radha WareJustin Durbin PA-C Work Phone: [facility] Start: 06-28-2023 End: 06-28-2023 Patient encounter procedure Radha Durbin PA-C Work Phone: [facility] Comment on above: Coronary artery dise ase involving [place] coronary artery of [place] heart without angina pectoris (Primary Dx); S/P [...] Radha Salgado on PA-C Work Phone: [facility] Comment on above: Refill Request Start: 05-25-2023 End: 05-25-2023 Patient encounter procedure Jair Marvin MD Work Phone: [facility] Comment on above: Abrasion of anterior right lower leg, initial encounter (Primary Dx) Start: 05-14-2023 Telephone encounter Radha Justin Durbin PA-C Work Phone: [facility] [place] Comment on above: Results Start: 05-11-2023 Telephone encounter Radha Justin Durbin PA-C Work Phone: [facility] [place] Comment on above: Results Start: 05-11-2023 End: 05-11-2023 Subsequent hospital visit by physician [facility] ([facility]-Stat) Work Phone: [facility] Comment on above: Atherosclerosis of a ken (HCC) [I70.0] Start: 02-08-2023 End: 02-08-2023 Patient encounter procedure Radha Justin Durbin PA-C Work Phone: [facility] Comment on above: Piriformis syndrome, left (Primary Dx); Somatic dysfunction of left sacroiliac joint Start: 01-31-2023 End: 01-31-2023 Subsequent hospital visit by physician Xr [facility] Work Phone: Radiology Comment on above: Back pain of lumbar region with sciatica [M54.40] Start: 01-31-2023 End: 01-31-2023 Patient encounter procedure Rebekah Salazar PA-C Work Phone: [facility] Comment on above: Back pain of lumbar region with sciatica (Primary Dx) Start: 01-12-2023 Refill Walter Gomez MD Work Phone: [facility] [place] Comment on above: Refill Request Start: 11-30-2022 Telephone encounter Radha Justin Durbin PA-C Work Phone: [facility] Comment on above: Results Start: 11-27-2022 End: 11-27-2022 Patient encounter procedure Radha Justin Durbin PA-C Work Phone: [facility] [place] Comment on above: S/P primary angiopla [...] Radha Salgado on PA-C Work Phone: [facility] Comment on above: Refill Request Start: 07-07-2022 Refill Radha Justin Salgado on PA-C Work Phone: [facility] Comment on above: Refill Request Start: 06-21-2022 End: 06-21-2022 Emergency department patient visit CHRISTINE KING Work Phone: [facility] Start: 04-10-2022 Refill Radha Justin Salgado on PA-C Work Phone: [facility] Comment on above: Refill Request Start: 02-27-2022 Non-patient / Non-visit Dr. Fr georgina Mackenzie III Work Phone: [facility] Start: 02-27-2022 End: 02-27-[address] Brian Mackenzie III Work Phone: [facility] Start: 02-08-2022 End: 02-08-[address] Brian Mackenzie III Work Phone: [facility] Start: 01-09-2022 Refill Radha Salgado on PA-C Work Phone: [facility] Comment on above: Refill Request Procedures Date Procedure Procedure Detail Performing Clinician Start: 09-19-2024 Adult depression scr eening assessment Brigitte Segal MAGAZINE SUPERVISOR[employer] Work Phone: Start: 09-14-2024 Estimated creatinine clearance [...] dip stick/tabl et reagent auto microscopy Dr. Noe Tejeda DO Work Phone: Start: 09-07-2024 D-dimer [...] disease S/P primary angioplasty with coronary stent NNADA Durbin PA-C Work Phone: Start: 09-08-2019 History [...] primary angioplasty with coronary stent Brigitte Segal APRN.[employer] Work Phone: Plan of Treatment Date Care Activity Detail Author Start: 02-24-2027 Diabetes Screening Diabetes Screening [facility] Start: 12-26-2026 Diabetes Screening Diabetes Screening [facility] Start: 06-28-2026 Diabetes Screening Diabetes Screening [facility] Start: 05-10-2026 Urine microalbumin profile [facility] Start: 11-29-2025 DIABETES SCREEN DIABETES SCREEN [facility] Start: 11-29-2025 Diabetes Screening Diabetes Screening [facility] Start: 09-19-2025 Depression Screening Depression Screening [facility] Start: 03-19-2025 End: 03-19-2025 Patient encounter procedure 03/19/2025 10:40 AM EDT Office Visit [facility] [address] [place] [address] Brigitte Segal [employer]INE SUPER[employer] [address] [place] [id number] 6 month exam [facility] Comment on above: 6 month exam Start: 01-26-2025 [facility]enza [facility] Comment on above: Postponed from 03/30/2024 (Declined at t his time) Start: 12-26-2024 Hepatitis B surface antibody level LDL Cholesterol [facility] Start: 12-24-2024 Covid-19 Vaccine ( season) Covid-19 Vaccine () [facility] Comment on above: Postponed from 08/31/2023 (Declined at t his time) Start: 12-24-2024 DIABETES SCREEN DIABETES SCREEN [facility] Start: 10-20-2024 End: 10-20-2024 Patient encounter procedure 10/20/2024 10:00 AM EDT Office Visit [facility] [address] [place] [address] Brigitte Segal APRN.[employer] [address] [place] [address] follow up [facility] [place] Comment on above: follow up Start: 09-19-2024 End: 09-19-2024 Patient encounter procedure 09/19/2024 2:40 PM EST Office Visit [facility] [place] [address] [place] [address] Brigitte Segal, MAGAZINE SUPERVISOR[employer] [address] [facility] [place] [id number] [phone] follow up [facility] for hypoxia Family [facility] Comment on above: follow up [facility] for hypoxia Start: 09-15-2024 Referral to service [facility] Start: 09-15-2024 Patient discharge [facility] Start: 09-08-2024 Referral to occupational therapist [facility] Start: 09-08-2024 Referral to service [facility] Start: 09-08-2024 Physiotherapy of chest [facility] Start: 09-07-2024 Following clinical pathway protocol [facility] Start: 09-07-2024 Ambulation without limitation [facility] Start: 09-07-2024 Assessment of risk of venous thromboembolism [facility] Start: 09-07-2024 Catheterization of vein [facility] Start: 09-07-2024 Inhalation therapy procedure [facility] Start: 09-07-2024 Insertion of catheter into peripheral vein [facility] Start: 09-07-2024 Measuring intake and output [facility] Start: 09-07-2024 Providing care according to standard [facility] Start: 09-07-2024 Provision of activity privileges [facility] Start: 09-07-2024 [facility] Start: 09-07-2024 Admission procedure [facility] Start: 09-07-2024 Oxygen therapy [facility] Start: 09-07-2024 [facility] Start: 09-07-2024 Continuous positive airway pressure ventilation treatment [facility] Start: 09-07-2024 Patient referral to dietitian [facility] Start: 07-30-2024 Advance Directive Discussion Advance Directive Discussion [facility] Start: 07-01-2024 End: 07-01-2024 Patient encounter procedure 07/01/2024 9:00 AM EST Office Visit [facility] [place] [address] [place] [address] Radha Durbin PA-C [address] [place] [address] 6 month follow up [facility] Comment on above: 6 month follow up Start: 03-30-2024 Covid-19 Vaccine () Covid-19 Vaccine () [facility] Start: 03-30-2024 Covid-19 Vaccine ( season) Covid-19 Vaccine () [facility] Start: 03-30-2024 Influenza vaccination Influenza Vaccine (#1) Roland Gina morgan Start: 03-27-2024 End: 03-27-2024 Patient encounter procedure 03/27/2024 8:00 AM EDT Office Visit [facility] [place] [address] [place] [address] Brigitte Segal APRN.[employer] [address] [facility] [place] [address] 1 month abdominal pain f/u [facility] Comment on above: 1 month abdominal pain f/u Start: 02-25-2024 End: 05-26-2024 Amylase [Enzymatic activity/volume] in Serum or Plasma [facility] Comment on above: Expected: 02/25/2024, Expires: 4 Start: 02-25-2024 End: 05-26-2024 CBC W Auto Differential panel - Blood [facility] Comment on above: Expected: 02/25/2024, Expires: 4 Start: 02-25-2024 End: 05-26-2024 Comprehensive metabolic 2000 panel - Serum or Plasma [facility] Comment on above: Expected: 02/25/2024, Expires: Start: 02-25-2024 End: 05-26-2024 Helicobacter pylori IgG Ab [Presence] in Serum or Plasma by Immunoassay [facility] Work Phone: Comment on above: Expected: 02/25/2024, Expires: 4 Start: 02-25-2024 End: 05-26-2024 Lipase [Enzymatic activity/volume] in Serum or Plasma [facility] Comment on above: Expected: 02/25/2024, Expires: 4 Start: 02-09-2024 COVID-19 VACCINE (4 - Pfizer series) COVID-19 VACCINE (4 - Pfizer series) [facility] Comment on above: Postponed from 07/13/2021 (Declined at t his time) Start: 02-09-2024 SHINGRIX VACCINE (1 of 2) SHINGRIX VACCINE (1 of 2) [facility] Comment on above: Postponed from 11/04/1987 (Declined at t his time) Start: 12-25-2023 End: 12-25-2023 Patient encounter procedure 12/25/2023 9:00 AM EDT Office Visit [facility] [place] [address] [place] [address] Radha Durbin PA-C [address] [place] [address] 3 month follow up [facility] [place] Comment on above: 3 month follow up Start: 12-24-2023 End: 03-24-2024 CBC W Auto Differential panel - Blood COMPLETE BLOOD COUNT AND DIFFERENTIAL Lab Routine Coronary artery disease involving [place] coronary artery of [place] heart without angina pectoris Essential hypertension, benign Hyperlipidemia LDL goal <100 Gastroesophageal reflux disease, unspecified whether esophagitis present Anxiety state Expected: 12/24/2023, Expires: 03/24/2024 [facility] Work Phone: Comment on above: Expected: 12/24/2023, Expires: Start: 12-24-2023 End: 03-24-2024 Comprehensive metabolic 2000 panel - Serum or Plasma COMPREHENSIVE METABOLIC PANEL Lab Routine Coronary artery disease involving [place] coronary artery of [place] heart without angina pectoris Essential hypertension, benign Hyperbilirubinemia Gastroesophageal reflux disease, unspecified whether esophagitis present Anxiety state Expected: 12/24/2023, Expires: 03/24/2024 [facility] Comment on above: Expected: 12/24/2023, Expires: Start: 12-24-2023 End: 03-24-2024 Lipid 1996 panel - Serum or Plasma LIPID PANEL BASIC Lab Routine Coronary artery disease involving [place] coronary artery of [place] heart without angina pectoris Atherosclerosis of aorta (HCC) Hyperlipidemia LDL goal <100 Expected: 12/24/2023, Expires: 03/24/2024 [facility] Comment on above: Expected: 12/24/2023, Expires: Start: 12-24-2023 End: 03-24-2024 Magnesium [Mass/volume] in Serum or Plasma MAGNESIUM Lab Routine Coronary artery disease involving [place] coronary artery of [place] heart without angina pectoris Current use of proton pump inhibitor Expected: 12/24/2023, Expires: 03/24/2024 [facility] [facility] Comment on above: Expected: 12/24/2023, Expires: Start: 11-30-2023 Hepatitis B surface antibody level LDL CHOLESTEROL [facility] Start: 08-31-2023 Covid-19 Vaccine () Covid-19 Vaccine () [facility] Start: 08-04-2023 Patient discharge [facility] Start: 08-04-2023 [facility] Start: 08-03-2023 Physiotherapy of chest [facility] Start: 08-01-2023 Elevation of head of bed [facility] Start: 08-01-2023 Patient education [facility] Start: 08-01-2023 [facility] Start: 08-01-2023 Following clinical pathway protocol [facility] Start: 08-01-2023 Oxygen therapy [facility] Start: 08-01-2023 Admission procedure [facility] Start: 08-01-2023 Provision of activity privileges [facility] Start: 08-01-2023 Assessment of risk of venous thromboembolism [facility] Start: 08-01-2023 Insertion of catheter into peripheral vein [facility] Start: 08-01-2023 Measuring intake and output [facility] Start: 08-01-2023 Providing care according to standard [facility] Start: 08-01-2023 End: 08-01-2023 Referral to service [facility] Start: 08-01-2023 [facility] Start: 08-01-2023 Hospital admission, emergency, from emergency room, medical nature [facility] Start: 08-01-2023 Inhalation therapy procedure [facility] Start: 07-30-2023 Advance Directive Discussion Advance Directive Discussion [facility] Start: 07-30-2023 Behavioral Health Screening Behavioral Health Screening [facility] Start: 07-30-2023 Depression Assessment Depression Assessment [facility] Start: 07-29-2023 DEPRESSION ASSESSMENT DEPRESSION ASSESSMENT [facility] Comment on above: Postponed from 07/30/2022 (Declined at t his time) Start: 03-30-2023 Influenza vaccination [facility] Start: 12-24-2022 Hepatitis B surface antibody level LDL CHOLESTEROL [facility] Start: 12-19-2022 SHINGRIX VACCINE (1 of 2) SHINGRIX VACCINE (1 of 2) [facility] Comment on above: Postponed from 11/04/1987 (Insurance Cov erage) Start: 11-27-2022 End: 01-27-2023 CBC panel - Blood by Automated count CBC Lab Routine S/P primary angioplasty with coronary stent Expected: 11/27/2022, Expires: 01/27/2023 [facility] Work Phone: Comment on above: Expected: 11/27/2022, Expires: 3 Start: 11-27-2022 End: 01-27-2023 Comprehensive metabolic 2000 panel - Serum or Plasma COMP METABOLIC PANEL Lab Routine S/P primary angioplasty with coronary stent Expected: 11/27/2022, Expires: 01/27/2023 [facility] Work Phone: Comment on above: Expected: 11/27/2022, Expires: 3 Start: 11-27-2022 End: 01-27-2023 Lipid 1996 panel - Serum or Plasma LIPID PANEL BASIC Lab Routine S/P primary angioplasty with coronary stent Expected: 11/27/2022, Expires: 01/27/2023 [facility] Work Phone: Comment on above: Expected: 11/27/2022, Expires: 3 Start: 11-27-2022 End: 01-27-2023 Prostate specific Ag [Mass/volume] in Serum or Plasma PSA/PROSTSPECAG DIAG Lab Routine Elevated PSA Expected: 11/27/2022, Expires: 01/27/2023 [facility] Work Phone: Comment on above: Expected: 11/27/2022, Expires: 3 Start: 07-30-2022 ADVANCE DIRECTIVE DISCUSSION ADVANCE DIRECTIVE DISCUSSION [facility] Start: 07-30-2022 DEPRESSION ASSESSMENT DEPRESSION ASSESSMENT [facility] Start: 03-30-2022 Influenza vaccination INFLUENZA (#1) [facility] Start: 02-08-2022 Patient referral [facility] Work Phone: Start: 09-18-2021 COVID-19 VACCINE (4 - Booster for Pfizer series) COVID-19 VACCINE (4 - Booster for Pfizer series) [facility] Start: 07-30-2021 DEPRESSION ASSESSMENT DEPRESSION ASSESSMENT [facility] Start: 07-13-2021 COVID-19 VACCINE (4 - Booster for Pfizer series) COVID-19 VACCINE (4 - Booster for Pfizer series) [facility] Start: 05-31-2017 End: 05-31-2017 Appointment Appointment [facility] [employer] Work Phone: Start: 05-22-2017 End: 05-22-2017 Appointment Appointment [facility] Work Phone: Start: 05-08-2017 End: 05-08-2017 Appointment Appointment [facility] [employer] Work Phone: Start: 05-08-2017 End: 05-08-2017 Arterial exam Arterial exam [facility] [employer] Work Phone: Start: 05-08-2017 End: 05-08-2017 N-invas physiologic std lxtr art compl bi PVR with exercise [facility] [employer] Work Phone: Start: 2012 RSV Vaccine (1 - 1-dose 75+ series) RSV Vaccine (1 - 1-dose 75+ series) [facility] Start: 1997 RSV Vaccine (1 - 1-dose 60+ series) RSV Vaccine (1 - 1-dose 60+ series) [facility] Start: 11-04-1987 SHINGRIX VACCINE (1 of 2) SHINGRIX VACCINE (1 of 2) [facility] Start: [birth year]-04-1955 Depression Screening Depression Screening [facility] Cyclic citrullinated peptide IgG Ab [Units/volume] in Serum or Plasma [facility] Cytoplasmic ANCA Screen [facility] Measurement of respiratory function [facility] Patient Education ED [facility] (Adult) [facility] Work Phone: Patient referral [facility] Work Phone: Rheumatoid factor [Presence] in Serum [facility] Immunization Date Immunization Notes Care Provider Mendoza lee 04-30-2023 COVID-19 vaccine, ag e 12+ yr, season (PFIZER-BIONTECH) NA Durbin PA-C Work Phone: [facility] 04-16-2023 influenza, high dose seasonal, preservative-free NA Durbin PA-C Work Phone: [facility] 04-16-2023 influenza virus vacc ine, unspecified formulation Brigittecolette Segal MAGAZINE SUPERVISOR[employer] Work Phone: [facility] 05-16-2022 influenza (HD-IIV4) vaccine, age 65+ yr, high dose, quadrivalent, PF (FLUZONE HIGH-DOSE) Brigitte Segal MAGAZINE SUPERVISOR[employer] Work Phone: [facility] 05-18-2021 COVID-19 vaccine, ag e 12+ yr (PFIZER-BIONTECH - PURPLE TOP) NA Durbin PA-C Work Phone: [facility] 05-18-2021 influenza (HD-IIV4) vaccine, age 65+ yr, high dose, quadrivalent, PF (FLUZONE HIGH-DOSE) NA Durbin PA-C Work Phone: [facility] 05-18-2021 influenza, high dose seasonal, preservative-free NA Durbin PA-C Work Phone: [facility] 11-01-2020 COVID-19 vaccine, ag e 12+ yr (PFIZER-BIONTECH - PURPLE TOP) NA Durbin PA-C Work Phone: [facility] 10-08-2020 COVID-19 vaccine, ag e 12+ yr (PFIZER-BIONTECH - PURPLE TOP) NA Durbin PA-C Work Phone: [facility] 04-26-2020 influenza, high-dose , quadrivalent vaccine (FLUZONE HIGH DOSE QUADRIVALENT) NA Durbin PA-C Work Phone: [facility] 04-13-[address] Brian Mackenzie III Work Phone: [facility] 04-24-2018 influenza, high dose seasonal, preservative-free NA Durbin PA-C Work Phone: [facility] 05-14-2017 influenza, high dose seasonal, preservative-free NA Durbin PA-C Work Phone: [facility] 05-10-2016 pneumococcal conjuga te vaccine, 13 valent NA Durbin PA-C Work Phone: [facility] 05-10-2016 tetanus toxoid, redu lane diphtheria toxoid, and acellular pertussis vaccine, adsorbed NA Durbin PA-C Work Phone: [facility] 04-29-[address] Brian Mackenzie III Work Phone: [facility] 03-27-2008 pneumococcal polysaccharide vaccine, 23 valent NA Durbin PA-C Work Phone: [facility] Work Phone: Payers Date Payer Category Payer Self-pay [id number] 2017 Medicare (Managed Care) PRIMETIM E [id number] 2017 Unknown PRIMETIME PRIMET [place] HMO POS [id number] 2017-Present [phone] [address] [place] [address] [facility] [id number] 2017 Unknown PRIMETIME PRIMET [place] HMO POS [id number] 2017-Present [phone] [address] [place] [address] HMO [id number] 2009 Unknown [id number] Unknown [id number]. 2.462 Unknown [id number] [id number]. 2.462 Unknown [id number] [id number]. 2.462 Unknown [id number] 2.16.840.1.439005.3.579. 2.462 Unknown [id number] [id number]. 2.462 Unknown [id number] [id number]. 2.462 Unknown [id number] 2.16.840.1.239421.3.579. 2.462 Unknown [id number] 2.16.840.1.184423.3.579. 2.462 Unknown [id number] 2.16.840.1.810609.3.579. 2.462 Unknown [id number] 2.16.840.1.309330.3.579. 2.462 Unknown [id number] 2.16.840.1.797170.3.579. 2.462 Unknown [id number] 2.16.840.1.765204.3.579. 2.462 Unknown [id number] 2.16.840.1.930910.3.579. 2.462 Unknown [id number] [id number]. 2.462 Unknown [id number] [id number]. 2.462 Unknown [id number]. 2.462 Social History Date Type Detail Facility Start: 07-11-2017 End: 09-07-2024 Tobacco smoking status NHIS Ex-smoker [facility] Work Phone: Start: 12-19-2021 End: 09-19-2024 Alcohol intake Current drinker of alcohol (finding) [facility] Start: 1935 Sex Assigned At Not on file [facility] Start: 12-13-2021 End: 12-23-2021 Exposure to SARS-CoV-2 (event) Not sure [facility] Start: 02-08-2022 End: 08-01-2023 Tobacco smoking status UTIS Unknown if ever smoked [facility] Start: 08-26-2020 Occ[facility] Start: 08-26-2020 None [facility] Start: 08-26-2020 Spouse/ Signif icant Other [facility] Start: 08-26-2020 Non-smoker [facility] Start: 1935 Sex Assigned At Male [facility] History of tobacco use Current smoker [facility] Start: 07-11-2017 End: 11-27-2022 Tobacco use and exposure Smokeless tobacco non-user [facility] Start: 11-27-2022 Tobacco Comment quit 2000 [facility] Start: 12-22-2022 End: 02-08-2023 History of Social function [facility] Start: 12-22-2022 End: 02-08-2023 Tobacco use panel [facility] Adult Depression Screening Assessment 0 [facility] Goals Date Patient Goal Desired Activity /State Functional Status Date Assessment Result Facility 09-15-2024 Functional status Chair [facility] Work Phone: 08-04-2023 Functional status Ambulates [facility] Work Phone: 09-21-2017 Are you deaf, or do you have serious difficulty hearing No 09/21/2017 1:31 PM Brian Whitman III, MD No [facility] 09-21-2017 Are you blind, or do you have serious difficulty seeing, even when wearing glasses No 09/21/2017 1:31 PM Brian Whitman III, MD No [facility] 09-21-2017 Do you have serious difficulty walking or climbing stairs No 09/21/2017 1:31 PM Brian Whitman III, MD No [facility] 09-21-2017 Do you have difficul ty dressing or bathing No 09/21/2017 1:31 PM Brian Whitman III, MD No [facility] 09-21-2017 Because of a physica l, mental, or emotional condition, do you have difficulty doing errands alone such as visiting a physician's office or shopping No 09/21/2017 1:31 PM Brian Whitman III, MD [facility] Mental Status Date Assessment Result Facility 09-15-2024 Cognitive function Voice/Name [facility] Work Phone: 08-03-2023 Cognitive function Voice/Name [facility] Work Phone: 08-01-2023 Cognitive function Level Of Cons ciousness Awake;Alert;Appropriate;Fol lows Commands [facility] Work Phone: 09-21-2017 Because of a physica l, mental, or emotional condition, do you have serious difficulty concentrating, remembering, or making decisions No 09/21/2017 1:31 PM Brian Whitman III, MD [facility] Clinical Notes 08-30-2017 to 10-31-2024 Telephone Encounter [...] med order meant for [facility] in [place]. Jaqueline Andre RN October 31, 2024 [facility] 10-31-2024 Miscellaneous Notes Palliative Medicine Referral Assessment Referral Accepted: No, Reason for Denial: Chart reviewed, pal med order meant for [facility] in [place]. Jaqueline Andre RN October 31, 2024 documented in this encounter [facility] 10-27-2024 Telephone encounter Note Pts [...] on her brothers phone number as well. [facility] 10-27-2024 Miscellaneous Notes Pts daughter [...] patient wishes to be referred. Rohan with [facility] calls to report family is requesting order for palliative care. Fax order to [facility] in [place]. Rohan also reports he saw pt today and is extending nurse to once a week x 2 weeks. Pt will then be discharged from Nursing. Rohan reports that Pulmonary gave new dx for pt of COPD and pulmonary htn. Amita Kim LPN documented in this encounter [facility] 10-27-2024 Telephone encounter Note Pt [...] into accepting palliative care. Shira Mcgill, RN [facility] 10-27-2024 Telephone encounter Note Please ask patient if he wants a palliative care consult? Palliative care is not end-of-life care but symptom management and chronic disease. Consult placed if patient wishes to be referred. [facility] 10-27-2024 Telephone encounter Note Rohan with [facility] calls to report family is requesting order for palliative care. Fax order to [facility] in [place]. Rohan also reports he saw pt today and is extending nurse to once a week x 2 weeks. Pt will then be discharged from Nursing. Rohan reports that Pulmonary gave new dx for pt of COPD and pulmonary htn. Amita Kim LPN [facility] 10-15-2024 Telephone encounter Note Paulino- nurse- [facility]- reports he did patient eval today and will extend HHC visits to 1 x week for 2 weeks. Pt is still on 4 L O2 after pneumonia. Pt will see pulm tomorrow. [facility] 10-15-2024 Miscellaneous Notes Paulino- nurse- [facility]- reports he did patient eval today and will extend HHC visits to 1 x week for 2 weeks. Pt is still on 4 L O2 after pneumonia. Pt will see pulm tomorrow. documented in this encounter [facility] 10-03-2024 Telephone encounter Note Detailed message left on secure line for Jamie [facility] Shirley Rivera MA October 03, 2024 3:56 PM [facility] 10-03-2024 Miscellaneous Notes Detailed message left on secure line for Jamie [facility] Shirley Rivera MA October 03, 2024 3:56 PM Yes. Please increase O2 to 4l. Thank you for the recert. Jamie with [facility] is calling due to he saw patient [...] back with information. documented in this encounter [facility] 10-03-2024 Telephone encounter Note Yes. Please increase O2 to 4l. Thank you for the recert. [facility] 10-03-2024 Telephone encounter Note Jamie with [facility] is calling due to he saw patient [...] advise, Jamie needs called back with information. [facility] 09-19-2024 Telephone encounter Note Sounds good. Agree. [facility] 09-19-2024 Miscellaneous Notes Sounds good. Agree. Rohan calling with [facility] Physical Therapy with plan of care for patient. Pt will be seen 1x per week for 4 weeks for functional mobility training. No call back needed if provider agreeable. Whit Sheridan RN documented in this encounter [facility] 09-19-2024 Instructions Brigitte Segal APRN.CNP - 09/19/2024 3:24 PM EST 1) Mirtazapine 7.5 mg at bedtime for sleep 2) Follow up in 6 months documented in this encounter [facility] 09-19-2024 Note HNO ID: [id number] Author: BRIGITTE SEGAL APRN.CNP Service: ? Author [...] lipoma performed by Dr. Robe Mackenzie at [facility] REVSC OPN/PRQ FEM/POP W/STNT/ANGIOP SM VSL 03-18-14 [...] Parkinson's disease with (more content not included)... [facility] 09-19-2024 History of Presen t illness [...] lipoma performed by Dr. Robe Mackenzie at [facility] REVSC OPN/PRQ FEM/POP W/STNT/ANGIOP SM VSL 03-18-14 [...] no tremor 7. Coronary artery disease involving [place] coronary artery of [place] heart without angina pectoris - ICD9: 414.01, [...] Brigitte Segal APRN.JANET documented in this encounter [facility] 09-19-2024 Telephone encounter Note Rohan calling with [facility] Physical Therapy with plan of care for patient. Pt will be seen 1x per week for 4 weeks for functional mobility training. No call back needed if provider agreeable. Whit Sheridan, ZACKARY [facility] 09-18-2024 Telephone encounter Note HHN was not at home, just granddaughter. She did report no cough. Pt has appointment with PCP tomorrow. [facility] 09-18-2024 Miscellaneous Notes HHN was not at home, just granddaughter. She did report no cough. Pt has appointment with PCP tomorrow. Absolutely keep at 3L. Any report on lung sounds? Haley from [facility] calls and reports that granddaughter had checked [...] provider tomorrow 09/19/2024. Please Contact Haley back [phone]. Tracy Cedillo RN Patient will need to stay on oxygen until he follows up with pulmonary. I have not seen him since February 2024 therefore I am not really able to shed any light on his oxygen use. Not common to use oxygen for only a week. Hellen calling from [facility] to report plan of care for patient and mcc will visit patient 1 time a week for 1 week and 2 times a week for 2 weeks. [facility] will work with patient on wound care (patient has skin tear to right elbow) and management of O2 levels. Hellen had no orders for wound care. Hellen cleaned wound and put on Vaseline gauze and band aid. Hellen also notes that patient is on Oxygen and thought that he was only going to be on oxygen for a week. 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 Hellen did not know if provider wanted to address Oxygen use. Patient is scheduled to see PCP 09/19/2024. No call back needed unless there are questions. Tracy Cedillo RN documented in this encounter [facility] 09-18-2024 Telephone encounter Note Absolutely keep at 3L. Any report on lung sounds? [facility] 09-18-2024 Telephone encounter Note Haley from [facility] calls and reports that granddaughter had checked [...] provider tomorrow 09/19/2024. Please Contact Haley back [phone]. Tracy Cedillo RN [facility] 09-18-2024 Telephone encounter Note Patient will need to stay on oxygen until he follows up with pulmonary. I have not seen him since February 2024 therefore I am not really able to shed any light on his oxygen use. Not common to use oxygen for only a week. [facility] 09-17-2024 Telephone encounter Note Hellen calling from [facility] to report plan of care for patient and mcc will visit patient 1 time a week for 1 week and 2 times a week for 2 weeks. [facility] will work with patient on wound care (patient has skin tear to right elbow) and management of O2 levels. Hellen had no orders for wound care. Hellen cleaned wound and put on Vaseline gauze and band aid. Hellen also notes that patient is on Oxygen and thought that he was only going to be on oxygen for a week. 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 Hellen did not know if provider wanted to address Oxygen use. Patient is scheduled to see PCP 09/19/2024. No call back needed unless there are questions. Tracy Cedillo RN [facility] 09-15-2024 Telephone encounter Note Patient is [...] daily to 10 mg daily [facility] 09-15-2024 Miscellaneous Notes Patient is an [...] mg daily Yes. Of course Rochelle from [facility] calls and states that patient is being discharged from [facility] on 09/05/2024 with the diagnosis of hypoxia and acute respiratory failure. Rochelle asking if provider willing to follow patient with orders for mcc, physical therapy, occupational therapy and social work. If agreeable please give Rochelle a call back . Thank you, Tracy Cedillo RN documented in this encounter [facility] 09-15-2024 Telephone encounter Note Yes. Of course [facility] 09-15-2024 Telephone encounter Note Rochelle from [facility] calls and states that [facility] with the diagnosis of hypoxia and acute respiratory failure. Rochelle asking if provider willing to follow patient with orders for mcc, physical therapy, occupational therapy and social work. If agreeable please give Rochelle a call back . Thank you, Tracy Cedillo RN [facility] 09-15-2024 Note [facility] Medical Records Department [address] [place] [id number] Discharge Summary 09/15/24 0952 MR#: [id number] Acct: [id number] Name: CLARK LYLES Rep #: [id number] : [id number] 88 From: John Soliz MD PCP: MARIANA Humphreys Status:ADM IN Location: [place] [address] Providers Date of Admission: 09/07/24 Date of [...] of Joints or (more content not included)... [facility] 09-09-2024 Telephone encounter Note Patient was admitted to [facility] on September 07 to 2024 for [...] DNR CC with no intubation. [facility] 09-09-2024 Miscellaneous Notes Patient was admitted to [facility] on September 07 to 2024 for [...] with no intubation. documented in this encounter [facility] 09-07-2024 Evaluation note Diagnosis Onset Date Resolution Hypoxia inactive September 07, 2024 12:42pm Pulmonary hypertension acute [facility] 2024 12:57pm COPD (chronic obstructive pulmonary disease) chronic October 16, 2024 12:57pm [facility] Work Phone: [phone] Instructions* Patient Instructions* Brigitte Segal APRN.CNP - 03/27/2024 8:18 AM EDT 1) eliminate omeprazole but continue pantoprazole 2) discontinue trazodone, replaced with Tylenol PM 3) follow up in Jun. as scheduled [facility] NoteHNO ID: [id number] Author: BRIGITTE SEGAL APRN.CNP Service: ? Author [...] lipoma performed by Dr. Robe Mackenzie at [facility] 03-18-14: REVSC OPN/PRQ FEM/POP W/STNT/ANGIOP SM VSL [...] - Controlled - Counse (more content not included)...[facility]08-29-2024 History of Present illness Narrative* Brigitte Segal APRN.MATE SHIP - 03/27/2024 8:03 AM EDT This is [...] lipoma performed by Dr. Robe Mackenzie at [facility] 03-18-14: REVSC OPN/PRQ FEM/POP W/STNT/ANGIOP SM VSL [...] improvement. Brigitte Segal APRN.JANET documented in this encounterUniversity Hospitals Geneva [facility] Center08-15-2024 Telephone encounter Note * Telephone [...] Velez LPN March 13, 2024 10:13 AM [facility]08-15-2024 Miscellaneous Notes* Telephone Encounter - [...] 13, 2024 10:13 AM documented in this encounterUniversity Hospitals Geneva Medical Center07-30-2024 Telephone encounter Note * Telephone Encounter - Shirley Rivera MA - 02/26/2024 8:28 AM EDT Patient was made aware of the results. Patient verbalizes understanding. Shirley Rivera Ma [facility]07-30-2024 Miscellaneous Notes* Telephone Encounter - [...] does on the pantoprazole. documented in this encounterUniversity Hospitals Geneva Medical Center07-30-2024 Telephone encounter Note * Telephone Encounter - Brigitte Segal APRN.CNP - 02/26/2024 8:00 AM EDT Patient does not have MyChart. Please let him know that he was negative for H. pylori the bacteria that causes ulcers. Blood counts are okay, kidney function liver function, and pancreas are all normal. Lets see how he does on the pantoprazole. [facility]07-29-2024 Instructions* Patient Instructions* Brigitte Segal APRN.CNP - 02/25/2024 8:50 AM EDT 1) Check labs 2) Flagyl 500 mg 3 x day 3) Cipro 500 mg 2 x day 4) Start pantoprazole 40 mg daily 5) Follow up in 1 month documented in this encounterUniversity Hospitals Geneva Medical Center07-29-2024 NoteHNO ID: [id number] Author: BRIGITTE SEGAL APRN.JANET Service: ? Author [...] lipoma performed by Dr. Robe Mackenzie at [facility] REVSC OPN/PRQ FEM/POP W/STNT/ANGIOP SM VSL 03-18-14 [...] - Recheck in 1 month Brigitte Segal APRN.[facility]07-29-2024 History of Present illness Narrative* Brigitte Segal APRN.[facility] - 02/25/2024 8:35 AM EDT This is [...] lipoma performed by Dr. Robe Mackenzie at [facility] REVSC OPN/PRQ FEM/POP W/STNT/ANGIOP SM VSL 03-18-14 [...] - Recheck in 1 month Brigitte Segal APRN.[employer] documented in this encounterUniversity Hospitals Geneva Medical Center06-07-2024 Telephone encounter Note * Telephone Encounter - Shirley Rivera MA - 01/04/2024 3:40 PM EDT Letter mailed to patient [facility]06-07-2024 Miscellaneous Notes* Telephone Encounter - Shirley Rivera MA - 01/04/2024 3:40 PM EDT Letter mailed to patient * Telephone Encounter - Shirley Rivera MA - 01/01/2024 4:48 PM EDT Attempted to call, no answer * Telephone Encounter - Walter Gomez MD - 12/28/2023 2:27 PM EDT Let him know his labs are stable. documented in this encounterUniversity Hospitals Geneva Medical Center06-04-2024 Telephone encounter Note * Telephone Encounter - Shirley Rivera MA - 01/01/2024 4:48 PM EDT Attempted to call, no answer [facility]06-03-2024 Telephone encounter Note* Telephone Encounter [...] 07/01/2024 Please advise. Thank you. Victoria Berkowitz. [facility]06-03-2024 Miscellaneous Notes* Telephone Encounter - [...] Thank you. Victoria Berkowitz. documented in this encounterUniversity Hospitals Geneva Medical Center05-31-2024 Telephone encounter Note * Telephone Encounter - Walter Gomez MD - 12/28/2023 2:27 PM EDT Let him know his labs are stable. [facility] Work Phone: 1(483) 106-740305-28-2024 Instructions* Patient Instructions* Radha Durbin PA-C - 12/25/2023 9:46 AM EDT Please schedule as soon as possible [place] cardiology documented in this encounterUniversity Hospitals Geneva Medical Center05-28-2024 History of Present illness Narrative* Radha Durbin PA-C - 12/25/2023 9:00 AM EDT 88 year old male with c/o here for follow up. Coronary artery disease involving [place] coronary artery of [place] heart without angina pectoris (primary encounter diagnosis) S/p primary angioplasty with coronary stent Angina pectoris (hcc) Atherosclerosis of aorta (hcc) Essential hypertension, benign Hyperlipidemia ldl goal <100 Pad (peripheral artery disease) ([facility]) Cardiovascular interval hx: Sees [place] cardiology: no new records 08/01/2023-08/04/2023 hospitalized [facility]: progressive SOB, hypoxia, bilateral pneumonia suspected atypical but negative cultures. 08/02/2023 echocardiogram [facility]: LV size WNL, mild concentric LVH, [...] to suggest ischemia. 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 [place] better after he stopped. Can think of [...] lipoma performed by Dr. Robe Mackenzie at [facility] REVSC OPN/PRQ FEM/POP W/STNT/ANGIOP SM VSL 03-18-14 [...] Chronic Blood Loss Coronary Artery Disease Involving [place] Coronary Artery of [place] Heart S/P Primary Angioplasty With Coronary Stent [...] refill. ASSESSMENT/PLAN: 1. Coronary artery disease involving [place] coronary artery of [place] heart without angina pectoris- ICD9: 414.01, ICD10: [...] signs of decompensation Needs follow up with [place] cardiology:daughter will schedule Continue current meds - [...] data. Radha Durbin PA-C documented in this encounterUniversity Hospitals Geneva Medical Center05-28-2024 NoteHNO ID: [id number] Author: Radha DURBIN PA-C Service: ? Author Type: Physician [place] Type: Progress Notes Filed: 12/26/2023 14:22 Note Text: 88 year old male with c/o here for follow up. Coronary artery disease involving [place] coronary artery of [place] heart without angina pectoris (primary encounter diagnosis) S/p primary angioplasty with coronary stent Angina pectoris (hcc) Atherosclerosis of aorta (hcc) Essential hypertension, benign Hyperlipidemia ldl goal <100 Pad (peripheral artery disease) (hcc) Cardiovascular interval hx: Sees [place] cardiology: no new records 08/01/2023-08/04/2023 hospitalized [facility]: progressive SOB, hypoxia, bilateral pneumonia suspected atypical but negative cultures. 08/02/2023 echocardiogram [facility]: LV size WNL, mild concentric LVH, [...] to suggest ischemia. 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 [place] bett (more content not included)...[facility]05-16-2024 Telephone encounter Note* Telephone Encounter - Kassandra Quispe RN - 12/13/2023 4:55 PM EDT Spoke with patient. Gave permission for son, Quincy to receive medical information. Spoke with Quincy and let him know script was sent. Kassandra Quispe RN [facility]05-16-2024 Miscellaneous Notes* Telephone Encounter - [...] 12/25/2023 Please return call to Quincy venegas [phone] Please advise. Thank you. Danita Staples. documented in this encounterUniversity Hospitals Geneva Medical Center05-16-2024 Telephone encounter Note * Telephone [...] we are unable to give him information. [facility]05-16-2024 Telephone encounter Note* Telephone Encounter [...] 12/25/2023 Please return call to Quincy venegas [phone] Please advise. Thank you. Danita Staples. [facility]02-27-2024 History of Present illness Narrative* Radha Durbin PA-C - 09/25/2023 9:00 AM EST 87 year old male with c/o here for 3 month follow up Hospital discharge summary Facility: [facility] Date of admission 08/01/2023 Date of discharge 08/04/2023 Discharge diagnoses and Plan 1. Acute hypoxia: Admitted through [facility] emergency department with complaint of progressive [...] daughter in the 80's percentile. Went to [facility] and sent to ER. Placed on O2. [...] Rocephin and Zithromax was continued 08/02/2023 echocardiogram [facility]: LV size WNL, mild concentric LVH, [...] dehydration or weakness. Coronary artery disease involving [place] coronary artery of [place] heart without angina pectoris (primary encounter diagnosis) S/p primary angioplasty with coronary stent Angina pectoris ([facility]) Atherosclerosis of aorta ([facility]) Essential hypertension, benign Hyperlipidemia ldl goal <100 Pad (peripheral artery disease) ([facility]) Cardiovascular interval hx: 08/22/2023 sent to ED from [facility] with lo O2 sat Sees [place] cardiology: no new records 08/02/2023 echocardiogram [facility]: LV size WNL, mild concentric LVH, [...] to suggest ischemia. 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 [place] better after he stopped. 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 Robe Mackenzie at [facility] REVSC OPN/PRQ FEM/POP W/STNT/ANGIOP SM VSL 03-18-14 [...] Chronic Blood Loss Coronary Artery Disease Involving [place] Coronary Artery of [place] Heart S/P Primary Angioplasty With Coronary Stent [...] refill. ASSESSMENT/PLAN: 1. Coronary artery disease involving [place] coronary artery of [place] heart without angina pectoris- ICD9: 414.01, ICD10: I25.10 (primary diagnosis) 2. S/P primary angioplasty with coronary stent - ICD9: V45.82, ICD10: Z95.5 3. Angina pectoris (HCC) - ICD9: 413.9, ICD10: I20.9 4. Atherosclerosis of aorta (HCC) - ICD9: 440.0, ICD10: I70.0 Stable, no ischemic sx, see [place] cardiology 5. Essential hypertension, benign - ICD9: [...] which included preparing to see the patient, [id number] patient care, completing clinical documentation, obtaining and/or [...] data. Radha Durbin PA-C documented in this encounterUniversity Hospitals Geneva Medical Center01-06-2024 Discharge summary Author Jerrell Faith [facility] August 04, 2023 12:59pm Note Date/Time August 04, 2023 11 :14am [facility] Medical Records Department [address] [place] [address] Discharge Summary 08/04/23 1114 MR#: [id number] Acct: [id number] Name: CLARK LYLES Rep #:[id number] : 1935 87 From: Jerrell Faith MD PCP: CHRISTINE Brown Status:ADM I N Location: [place] [address] Providers Date of Admission: 08/01/23 Date of [...] 76.4 H, Lymph % (Auto) 8.9 L, Cedar % (Auto) 9.4, Eos % (Auto) 4.1, [...] Self Care Charges/Coding Visit Charges Inpatient E&M: 29899 Disch Hosp >30min 08/04/23 1259 <Electronically signed by Jerrell Faith MD> Cosigner Signature (if applicable): CC: Dr. Jerrell Faith MD; CHRISTINE Brown~ Signed [facility] Work Phone: 1(187) 628-711101-06-2024 Progress note Author Jerrell Faith [facility] August 04, 2023 11:09am Note Date/Time August 04, 2023 8: 05am [facility] Medical Records Department [address] [place] [address] Progress Note - Hospitalist 08/04/23 0805 MR#: [id number] Acct: [id number] Name: CLARK LYLES Rep #:[id number] : 1935 87 From: Jerrell Faith MD PCP: CHRISTINE Brown Status:ADM I N Location: [place] [address] Reason for Visit Reason for Visit: Diagnoses [...] 76.4 H, Lymph % (Auto) 8.9 L, Cedar % (Auto) 9.4, Eos % (Auto) 4.1, [...] 35 Minutes Charges/Coding Visit Charges Inpatient E&M: 10043 Subs Hosp L2 08/04/23 1109 <Electronically signed by Jerrell Faith MD> Cosigner Signature (if applicable): CC: ~ Signed [facility] Work Phone: 1(633) 734-187901-05-2024 Progress note Author Jerrell Faith [facility] August 03, 2023 9:52am Note Date/Time August 03, 2023 8: 06am [facility] Medical Records Department [address] [place] [address] Progress Note - Hospitalist 08/03/23 0802 MR#: [id number] Acct: [id number] Name: CLARK LYLES Rep #:[id number] : 1935 87 From: Jerrell Faith MD PCP: CHRISTINE Brown Status:ADM I N Location: [place] [address] Reason for Visit Reason for Visit: Diagnoses [...] documentation, 50Minutes Charges/Coding Visit Charges Inpatient E&M: 52116 Subs Hosp L3 08/03/23 0952 <Electronically signed by Jerrell Faith MD> Cosigner Signature (if applicable): CC: ~ Signed [facility] Work Phone: 1(381) 252-893501-04-2024 Progress note Author Jerrell Galeasto [facility] August 02, 2023 3:17pm Note Date/Time August 02, 2023 10 :55am [facility] Medical Records Department [address] [place] [address] Progress Note - Hospitalist 08/02/23 1055 MR#: [id number] Acct: [id number] Name: CLARK LYLES Rep #:[id number] : 1935 87 From: Jerrell Faith MD PCP: CHRISTINE Brown Status:ADM I N Location: [place] [address] Reason for Visit Reason for Visit: Patient [...] 82.0 H, Lymph % (Auto) 5.7 L, Cedar %(Auto) 10.3 H, Eos % (Auto) 0.9, [...] 88.2 H, Lymph % (Auto) 5.4 L, Cedar % (Auto) 5.8, Eos % (Auto) 0.0, [...] documentation, 50Minutes Charges/Coding Visit Charges Inpatient E&M: 90876 Subs Hosp 08/02/23 1517 <Electronically signed by Jerrell Faith MD> Cosigner Signature (if applicable): CC: ~ Signed [facility] Work Phone: 1(976) 248-688801-03-2024 Discharge summary Author Lewis Sutton [facility] August 01, 2023 4:18pm Note Date/Time August 01, 2023 1: 26pm [facility] Medical Records Department [address] [place] [address] Emergency Department Summary 08/01/23 MR#: [id number] Acct: [id number] Name: CLARK LYLES Rep #:[id number] : 1935 87 From: Lewis Sutton MD PCP: CHRISTINE Brown Status:ADM I N Location: [place] [address] HPI History of Present Illness Chief Complaint: [...] he has dyspnea on exertion as well. [facility] Medical History Acute respiratory failure with hypoxia Anxiety Anxiety and depression Atherosclerosis of coronary artery of [place] heart without angina pectoris BPH (benign prostatic [...] 82.0 H Lymph % (Auto) 5.7 L Cedar % (Auto) 10.3 H Eos % (Auto) [...] 15:00 EST Reading Location ID and State: [facility] / [place] Tel , Service support , Discharge Plan Dx/Rx/DC Orders Clinical Impression: Hypoxia, Pneumonia, SOB (shortness of breath), Hypokalemia Disposition Disposition: Acute Care [facility] What to do if you have Problems For any increased pain, shortness of breath, bleeding, nausea or vomiting, chestpain, or any unexpected problems, contact your Primary Care Provider. Call [facility] ([phone]) or report to the closest Emergency Room. Call 911 if necessary. 08/01/23 1618 <Electronically signed by Lewis Sutton MD> Cosigner Signature (if applicable): CC: CHRISTINE Brown ~ Signed [facility] Work Phone: 1(771) 879-646901-03-2024 Discharge summary Author Lewis Sutton [facility] August 01, 2023 4:18pm Note Date/Time August 01, 2023 1: 26pm [facility] Medical Records Department [address] [place] [address] Emergency Department Summary 08/01/23 MR#: [id number] Acct: [id number] Name: CLARK LYLES Rep #:[id number] : 1935 87 From: Lewis Sutton MD PCP: CHRISTINE Brown Status:ADM I N Location: [place] [address] HPI History of Present Illness Chief Complaint: [...] he has dyspnea on exertion as well. [facility] Medical History Acute respiratory failure with hypoxia Anxiety Anxiety and depression Atherosclerosis of coronary artery of [place] heart without angina pectoris BPH (benign prostatic [...] 82.0 H Lymph % (Auto) 5.7 L Cedar % (Auto) 10.3 H Eos % (Auto) [...] 15:00 EST Reading Location ID and State: [facility] / [place] Tel , Service support , Discharge Plan Dx/Rx/DC Orders Clinical Impression: Hypoxia, Pneumonia, SOB (shortness of breath), Hypokalemia Disposition Disposition: Acute Care Hospital [facility] What to do if you have Problems For any increased pain, shortness of breath, bleeding, nausea or vomiting, chestpain, or any unexpected problems, contact your Primary Care Provider. Call [facility] ([phone]) or report to the closest Emergency Room. Call 911 if necessary. 08/01/23 1618 <Electronically signed by Lewis Sutton MD> Cosigner Signature (if applicable): CC: CHRISTINE Brown ~ Signed [facility] Work Phone: 1(217) 874-539612-12-2023 Miscellaneous Notes* Telephone Encounter - Davina Fajardo - 07/10/2023 9:33 AM EST Patient has been identified by name and date of : Yes Requested Prescriptions Pending Prescriptions Disp Refills tamsulosin (FLOMAX) 0.4 mg 180 capsule 3 Sig: Take 2 capsules by mouth once daily. RX INSTRUCTIONS: Patient aware RX will be sent to [facility] pharmacy. No need to notify patient. Davina Fajardo documented in this encounterUniversity Hospitals Geneva Medical Center12-04-2023 Miscellaneous Notes* Telephone Encounter - [...] Thanks, Chaz Durbin PA-C documented in this encounterUniversity Hospitals Geneva Medical Center11-30-2023 History of Present illness Narrative* Radha Durbin PA-C - 06/28/2023 9:00 AM EST 87 year old male with c/o here for 3 month follow up Still having issues with diarrhea, watery to mushy. No pain Moving bowels twice a day, previously once a day. Taking Immodium AD Coronary artery disease involving [place] coronary artery of [place] heart without angina pectoris (primary encounter diagnosis) S/p primary angioplasty with coronary stent Angina pectoris ([facility]) Atherosclerosis of aorta ([facility]) Essential hypertension, benign Hyperlipidemia ldl goal <100 Pad (peripheral artery disease) ([facility]) Cardiovascular interval hx: Sees [place] cardiology: no new records 02/27/2022 exercise myocardial [...] to suggest ischemia. 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 [place] better after he stopped- probably a year [...] lipoma performed by Dr. Robe Mackenzie at [facility] REVSC OPN/PRQ FEM/POP W/STNT/ANGIOP SM VSL 03-18-14 [...] Chronic Blood Loss Coronary Artery Disease Involving [place] Coronary Artery of [place] Heart S/P Primary Angioplasty With Coronary Stent [...] refill. ASSESSMENT/PLAN: 1. Coronary artery disease involving [place] coronary artery of [place] heart without angina pectoris- ICD9: 414.01, ICD10: [...] data. Radha Durbin PA-C documented in this encounterUniversity Hospitals Geneva Medical Center11-20-2023 Miscellaneous Notes* Telephone Encounter - Naty Cardona LPN - 06/18/2023 9:36 AM EST Appt scheduled 06/28/23 * Telephone Encounter - [place] Sydney Kathleen - 06/18/2023 8:02 AM EST Patient has been identified by name and date of : Yes Requested Prescriptions Pending Prescriptions Disp Refills traZODone (DESYREL) 50 mg tablet 90 tablet 1 Sig: Take 1 tablet by mouth daily at bedtime. RX INSTRUCTIONS: Patient aware RX will be sent to pharmacy. No need to notify patient. Sydney [place]oning Pss documented in this encounterUniversity Hospitals Geneva Medical Center10-27-2023 History of Present illness Narrative* Jair Marvin MD - 05/25/2023 11:18 AM EDT Patient presents with: Edema: Redness, swelling, warmth, painful to touch x 1 week hit on glass enamel mixer HPI: Skin Lesion: Location: right luevano Duration: [...] signs. Jair Marvin MD documented in this encounterUniversity Hospitals Geneva Medical Center10-23-2023 Miscellaneous Notes* Telephone Encounter - [...] Thanks, Chaz Durbin PA-C documented in this encounterUniversity Hospitals Geneva Medical Center10-14-2023 Miscellaneous Notes* Telephone Encounter - [...] Thanks, Chaz Durbin PA-C documented in this encounterUniversity Hospitals Geneva Medical Center10-13-2023 Miscellaneous Notes* Telephone Encounter - Radha Durbin PA-C - 05/11/2023 4:54 PM EDT See other TE Thanks, Chaz Durbin PA-C * Telephone Encounter - Whit Sheridan RN - 05/11/2023 2:30 PM EDT Pt's daughter Pili asking Chaz Durbin to advise on pt's recent CT scan results, when able. Thank you. documented in this encounterUniversity Hospitals Geneva Medical Center10-13-2023 History of Present illness Narrative* [...] 2023 TIME: 4:07 PM documented in this encounterUniversity Hospitals Geneva Medical Center07-13-2023 Instructions* Patient Instructions* Radha Durbin PA-C - 02/08/2023 10:02 AM EDT Ice/ moist heat, lineaments, OTC analgesics as needed. Stretching and posture reviewed. See handout on piriformis stretching. documented in this encounterUniversity Hospitals Geneva Medical Center07-13-2023 History of Present illness Narrative* [...] lipoma performed by Dr. Robe Mackenzie at [facility] REVSC OPN/PRQ FEM/POP W/STNT/ANGIOP SM VSL 03-18-14 [...] Chronic Blood Loss Coronary Artery Disease Involving [place] Coronary Artery of [place] Heart S/P Primary Angioplasty With Coronary Stent [...] or gallop. No lifts, heaves, or rubs. cat tender over right lumbar paravertebrals, right piriformis. [...] history context and comparison. documented in this encounterUniversity Hospitals Geneva Medical Center07-05-2023 History of Present illness Narrative* Rebekah Salazar PA-C - 01/31/2023 1:38 PM EDT This note was created using [employer]. Subjective Clark Lyles is a 87 year [...] lipoma performed by Dr. Robe Mackenzie at [facility] REVSC OPN/PRQ FEM/POP W/STNT/ANGIOP SM VSL 03-18-14 [...] AP/LAT/L5-S1 Rebekah Salazar PA-C documented in this encounterUniversity Hospitals Geneva Medical Center07-05-2023 History of Present illness Narrative* [...] 31, 2023 11:04 AM documented in this encounterUniversity Hospitals Geneva Medical Center06-16-2023 Miscellaneous Notes* Telephone Encounter - [...] you. Юлия Deng LPN documented in this encounterUniversity Hospitals Geneva Medical Center05-04-2023 Miscellaneous Notes* Telephone Encounter - Whit Sheridan RN - 11/30/2022 10:38 AM EDT Images from the original note were not included. Patient's daughter Pili Payne, notified. AZCKARY Vines PA-C 11/30/2022 9:01 AM EDT Please let him know labs all look good. Thanks, Chaz Durbin PA-C documented in this encounterUniversity Hospitals Geneva Medical Center05-01-2023 Instructions* Patient Instructions* Radha Durbin [...] Last Reviewed Date 2019-11-20 documented in this encounterUniversity Hospitals Geneva Medical Center05-01-2023 History of Present illness Narrative* [...] (primary encounter diagnosis) Pad (peripheral artery disease) ([facility]) Hyperlipidemia ldl goal <100 Essential hypertension, benign Angina pectoris (hcc) Cardiovascular interval hx: Sees [place] cardiology 02/27/2022 exercise myocardial perfusion stress test [...] to suggest ischemia. 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 In past notes: Yes: occurs in tenriism, sudden feeling of lightheadedness,pallor, weakness, lasts about 20 minutes. Seemed better when he went outside. Has happened 2 years ago. Father had low sugar. Doesn't eat prior to tenriism and then goes out to [facility] after. Unexplainable fatigue No Leg swelling: No Nausea: No diaphoresis: No Heartburn: No Claudication: No Smoking: No Following Low cholesterol, high fiber diet? Yes If on statin: muscle aches? No If on statin: GI sx or diarrhea? No Additional history does a lot of mowing. 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 Lab review: [...] lipoma performed by Dr. Robe Mackenzie at [facility] REVSC OPN/PRQ FEM/POP W/STNT/ANGIOP SM VSL 03-18-14 [...] Chronic Blood Loss Coronary Artery Disease Involving [place] Coronary Artery of [place] Heart S/P Primary Angioplasty With Coronary Stent [...] this visit. COVID-19 VACCINE(4 - Booster for Promoboxx series) due on 07/13/2021 ADVANCE DIRECTIVE DISCUSSION [...] TABLET Radha Durbin PA-C documented in [facility] encounter[facility] Miscellaneous Notes* Telephone Encounter - [...] notify patient. Charity Zhou documented in this encounterUniversity [facility]12-[facility]-2022 Miscellaneous Notes* Telephone Encounter - [...] Thank you. Tracy Lambert documented in this encounterUniversity [facility]09-12-2022 Miscellaneous Notes* Telephone Encounter - [...] advise. Tamra Baez Pss documented in this encounterUniversity [facility]als [facility]06-13-2022 Miscellaneous Notes* Telephone Encounter - [...] patient. Theresa Barbour Pss documented in this encounterUniversity [facility]als [facility]02-10-2020 Evaluation note* Diagnosis Onset Date Resolution Status Essential (primary) hypertension chronic Hyperlipidemia chronic Peripheral vascular occlusive disease chronic History of coronary artery stent placement September 082019 resolved [facility] Work Phone: [phone] Evaluation note* Diagnosis Onset Date Resolution Status BPH (benign prostatic hyperplasia) acute History of angioplasty of peripheral vessel August, acute Hypokalemia acute Hypoxia acute Pneumonia acute SOB (shortness of breath) ac crow Essential (primary) hypertension chronic History of coronary artery stent placement September 082019 [facility] Work Phone: Evaluation note* Diagnosis Gastroesophageal reflux disease, unspecified whether esophagitis present [facility] [place] [facility]* Diagnosis Benign prostatic hyperplasia with nocturia [facility] [place] noteNo assessment information availableWMercy [facility] Work Phone: Evaluation note* Diagnosis S/P primary angioplasty with coronary stent Postsurgical percutaneous transluminal coronary angioplasty status PAD (peripheral artery disease) (HCC) Peripheral vascular disease, unspecified Hyperlipidemia LDL goal <100 Other and unspecified hyperlipidemia Anxiety state Anxiety state, unspecified Essential hypertension, benign Benign prostatic hyperplasia with nocturia [facility] [place] [facility]* Diagnosis S/P primary [...] insomnia Insomnia, unspecified [facility] [place] [facility]* Diagnosis Gastroesophageal reflux disease, unspecified whether esophagitis present Anxiety state Anxiety state, unspecified Chronic insomnia Insomnia, unspecified [facility] [place] [facility]* Diagnosis Back pain of lumbar region with sciatica- Primary documented in this encounter [facility] [place] [facility]* Diagnosis Piriformis syndrome, left- Primary Somatic dysfunction of left sacroiliac joint documented [facility] this encounter [facility] [place] [facility]* Diagnosis Abrasion of anterior right lower leg, initial encounter- Primary documented in this [facility] [place] [facility]* Diagnosis Atherosclerosis of aorta (HCC) Atherosclerosis of aorta documented in this encounter [facility] [place] [facility]* Diagnosis Anxiety state Anxiety state, unspecified Chronic insomnia Insomnia, unspecified [facility] this [facility] [place] [facility]* Diagnosis Coronary artery disease involving [place] coronary artery of [place] heart without angina pectoris- Primary S/P primary [...] Diarrhea, unspecified type documented in this encounter [facility]* Diagnosis Benign prostatic hyperplasia with nocturia documented in this encounter [facility] [place] [facility]* Diagnosis Onset Date Resolution Status Hypokalemia acute Hypoxia acute Pneumonia acute SOB (shortness of breath) [facility] Work Phone: Evaluation note* Diagnosis Coronary artery disease involving [place] coronary artery of [place] heart without angina pectoris S/P primary angioplasty [...] Pneumonia, organism unspecified documented in this encounter [facility] [place] [facility]* Diagnosis Anxiety state Anxiety state, unspecified Chronic insomnia Insomnia, unspecified documented in this encounter [facility]* Diagnosis Coronary artery disease involving [place] coronary artery of [place] heart without angina pectoris- Primary S/P primary [...] disorder, mild, abuse documented in this encounter [facility]* Diagnosis Benign prostatic hyperplasia with nocturia S/P primary angioplasty with coronary stent Postsurgical percutaneous transluminal coronary angioplasty status documented in this encounter [facility] [place] [facility]* Diagnosis Left sided abdominal pain- Primary Abdominal pain, unspecified site Essential hypertension, benign documented [facility] this [facility] [place] [facility]* Diagnosis S/P primary angioplasty with coronary stent Postsurgical percutaneous transluminal coronary angioplasty status PAD (peripheral artery disease) (HCC) Peripheral vascular disease, unspecified documented [facility] this [facility] [place] [facility]* Diagnosis S/P primary angioplasty with coronary stent Postsurgical percutaneous transluminal coronary angioplasty status PAD (peripheral artery disease) (HCC) Peripheral vascular disease, unspecified Hyperlipidemia LDL goal <100 Other and unspecified hyperlipidemia Anxiety state Anxiety state, unspecified Benign prostatic hyperplasia with nocturia Essential hypertension, benign Left sided abdominal pain Abdominal pain, unspecified site documented in this encounter [facility] [place] [facility]* Diagnosis Back pain of lumbar region with sciatica documented in this encounter [facility] [place] [facility]* Diagnosis Essential hypertension, benign documented [facility] this [facility] [place] [facility]* Diagnosis Chronic insomnia- Primary Insomnia, unspecified Benign prostatic hyperplasia with nocturia Screening for depression Hyperlipidemia LDL goal <100 Other and unspecified hyperlipidemia Essential hypertension, benign Parkinson's disease without dyskinesia, unspecified whether manifestations fluctuate (HCC) Coronary artery disease involving [place] coronary artery of [place] heart without angina pectoris Acute respiratory failure with hypoxia (HCC) Acute respiratory failure documented in this encounter [facility] note* Diagnosis 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 Chronic obstructive pulmonary disease with acute lower respiratory infection (HCC) Obstructive chronic bronchitis with exacerbation documented in this encounter [facility] Work Phone: Reason for referral (narrative)* Diagnostic Procedure Only (Urgent) - Closed Specialty Diagnoses / Procedures Referred By Armando t Referred To Contact XR IMAGING Diagnoses Back pain of lumbar region with sciatica Procedures XR LUMBAR GENERAL 3V AP/LAT/L5-S1 RADEX SPINE LUMBOSACRAL 2/3 VIEWS Rebekah Salazar PA-C [address] [place] [address] Xr Imaging Referral ID Status Reason Start Date Expiration Date V isits Requested Visits Authorized [id number] Closed Auto-Generate d Referral 01/31/2023 03/01/2024 1 1 [facility] for referral (narrative)* Diagnostic Procedure Only (Urgent) - Closed Specialty Diagnoses / Procedures Referred By Contac t Referred To Contact XR IMAGING Diagnoses Back pain of lumbar region with sciatica Procedures XR LUMBAR GENERAL 3V AP/LAT/L5-S1 RADEX SPINE LUMBOSACRAL 2/3 VIEWS Rebekah Salazar PA-C [address] [place] [address] [place] [address] Referral ID Status Reason Start Date Expiration Date V isits Requested Visits Authorized [id number] Closed Auto-Generate d Referral 01/31/2023 03/01/2024 1 1 [facility] for visit Narrative* Diagnostic Procedure Only (Urgent) - Closed Specialty Diagnoses / Procedures Referred By Contac t Referred To Contact XR IMAGING Diagnoses Back pain of lumbar region with sciatica Procedures XR LUMBAR GENERAL 3V AP/LAT/L5-S1 RADEX SPINE LUMBOSACRAL 2/3 VIEWS Rebekah Salazar PA-C [address] [place] [address] [place] [id number] Referral ID Status Reason Start Date Expiration Date V isits Requested Visits Authorized [id number] Closed Auto-Generate d Referral 01/31/2023 03/01/2024 1 1 [facility] Chief Complaint and Reason for [...] Will No September 18 11:19am Power of Social Media Community Manager No September 18, 2021 11:19am Advance Directive Response Recorded Date/ Time Advance Directives Yes August 8:34am Living Will No June 21 022 9:59pm Power of Social Media Community Manager No June 21, 2022 9:59pm Advance Directive Response Recorded Date/ Time Advance Directives Yes August 8:34am Living Will Yes August 01 1:05pm Power of Social Media Community Manager Yes August 01 1:05pm Name of Medical Power of Social Media Community Manager nick payne, daughter and quincy lyles, son August 01, 2023 1:05pm Advance Directive Response Recorded Date/ Time Name of Medical Power of Social Media Community Manager nick payne, daughter and quincy lyles, son August 01, 2023 5:46pm Advance Directives Yes August 8:34am Living Will Yes August 01 5:46pm Power of Social Media Community Manager Yes August 01 5:46pm Advance Directive Response Recorded Date/ Time Living Will Yes September 07 3:15pm Do you have a Healthcare Power of Social Media Community Manager? Yes September 07, 2024 3:15pm Name of Medical Power of Social Media Community Manager quincy September 07, 2024 3:15pm Advance Directives Yes August 9:34am Reason for Referral Specialty Diagnoses / Procedures Referred By Contac t Referred To Contact CT IMAGING Diagnoses Atherosclerosis of aorta (HCC) Procedures CTA ABD/PEL W IVCON CT ANGIO ABD&PLVIS CNTRST MTRL W/WO CNTRST IMGES Radha Durbin PA-C [address] [place] [address] [place] [address] Referral ID Status Reason Start Date Expiration Date V isits Requested Visits Authorized [id number] Closed Auto-Generate d Referral 04/30/2023 07/29/2023 1 1 Specialty Diagnoses / Procedures Referred By Contac t Referred To Contact Neurology Diagnoses Parkinson's disease without dyskinesia, with fluctuating manifestations (HCC) Procedures CONSULT TO NEUROLOGY OFFICE/OUTPATIENT [facility] 60 MINUTES Radha Durbin PA-C [address] [place] [address] Referral ID Status Reason Start Date Expiration Date Visits Requested Visits Authorized [id number] Authorized PCP Requested Referral 12/25/2023 12/24/2024 1 1 Summary Purpose Additional Source Comments Source Comments (unrecognize d section and content) In the event this informatio n is protected by the Federal Confidentiality of Alcohol and Drug Abuse Patient Records regulations: The Federal rules restrict any use of the information to criminally investigate or prosecute any alcohol or drug abuse patient.[facility] CenterIn the event this information is protected by the Federal Confidentiality of Alcohol and Drug Abuse Patient Records regulations: The Federal rules restrict any use of the information to criminally investigate or prosecute any alcohol or drug abuse patient.[facility] CenterIn the event this information is protected by the Federal Confidentiality of Alcohol and Drug Abuse Patient Records regulations: The Federal rules restrict any use of the information to criminally investigate or prosecute any alcohol or drug abuse patient.[facility] CenterIn the event this information is protected by the Federal Confidentiality of Alcohol and Drug Abuse Patient Records regulations: The Federal rules restrict any use of the information to criminally investigate or prosecute any alcohol or drug abuse patient.[facility] CenterIn the event this information is protected by the Federal Confidentiality of Alcohol and Drug Abuse Patient Records regulations: The Federal rules restrict any use of the information to criminally investigate or prosecute any alcohol or drug abuse patient.[facility] CenterIn the event this information is protected by the Federal Confidentiality of Alcohol and Drug Abuse Patient Records regulations: The Federal rules restrict any use of the information to criminally investigate or prosecute any alcohol or drug abuse patient.[facility] CenterIn the event this information is protected by the Federal Confidentiality of Alcohol and Drug Abuse Patient Records regulations: The Federal rules restrict any use of the information to criminally investigate or prosecute any alcohol or drug abuse patient.[facility] CenterIn the event this information is protected by the Federal Confidentiality of Alcohol and Drug Abuse Patient Records regulations: The Federal rules restrict any use of the information to criminally investigate or prosecute any alcohol or drug abuse patient.[facility] CenterIn the event this information is protected by the Federal Confidentiality of Alcohol and Drug Abuse Patient Records regulations: The Federal rules restrict any use of the information to criminally investigate or prosecute any alcohol or drug abuse patient.[facility] CenterIn the event this information is protected by the Federal Confidentiality of Alcohol and Drug Abuse Patient Records regulations: The Federal rules restrict any use of the information to criminally investigate or prosecute any alcohol or drug abuse patient.[facility] CenterIn the event this information is protected by the Federal Confidentiality of Alcohol and Drug Abuse Patient Records regulations: The Federal rules restrict any use of the information to criminally investigate or prosecute any alcohol or drug abuse patient.[facility] CenterIn the event this information is protected by the Federal Confidentiality of Alcohol and Drug Abuse Patient Records regulations: The Federal rules restrict any use of the information to criminally investigate or prosecute any alcohol or drug abuse patient.[facility] CenterIn the event this information is protected by the Federal Confidentiality of Alcohol and Drug Abuse Patient Records regulations: The Federal rules restrict any use of the information to criminally investigate or prosecute any alcohol or drug abuse patient.[facility] CenterIn the event this information is protected by the Federal Confidentiality of Alcohol and Drug Abuse Patient Records regulations: The Federal rules restrict any use of the information to criminally investigate or prosecute any alcohol or drug abuse patient.[facility] CenterIn the event this information is protected by the Federal Confidentiality of Alcohol and Drug Abuse Patient Records regulations: The Federal rules restrict any use of the information to criminally investigate or prosecute any alcohol or drug abuse patient.[facility] CenterIn the event this information is protected by the Federal Confidentiality of Alcohol and Drug Abuse Patient Records regulations: The Federal rules restrict any use of the information to criminally investigate or prosecute any alcohol or drug abuse patient.[facility] CenterIn the event this information is protected by the Federal Confidentiality of Alcohol and Drug Abuse Patient Records regulations: The Federal rules restrict any use of the information to criminally investigate or prosecute any alcohol or drug abuse patient.[facility] CenterIn the event this information is protected by the Federal Confidentiality of Alcohol and Drug Abuse Patient Records regulations: The Federal rules restrict any use of the information to criminally investigate or prosecute any alcohol or drug abuse patient.[facility] CenterIn the event this information is protected by the Federal Confidentiality of Alcohol and Drug Abuse Patient Records regulations: The Federal rules restrict any use of the information to criminally investigate or prosecute any alcohol or drug abuse patient.[facility] CenterIn the event this information is protected by the Federal Confidentiality of Alcohol and Drug Abuse Patient Records regulations: The Federal rules restrict any use of the information to criminally investigate or prosecute any alcohol or drug abuse patient.[facility] CenterIn the event this information is protected by the Federal Confidentiality of Alcohol and Drug Abuse Patient Records regulations: The Federal rules restrict any use of the information to criminally investigate or prosecute any alcohol or drug abuse patient.[facility] CenterIn the event this information is protected by the Federal Confidentiality of Alcohol and Drug Abuse Patient Records regulations: The Federal rules restrict any use of the information to criminally investigate or prosecute any alcohol or drug abuse patient.[facility] CenterIn the event this information is protected by the Federal Confidentiality of Alcohol and Drug Abuse Patient Records regulations: The Federal rules restrict any use of the information to criminally investigate or prosecute any alcohol or drug abuse patient.[facility] CenterIn the event this information is protected by the Federal Confidentiality of Alcohol and Drug Abuse Patient Records regulations: The Federal rules restrict any use of the information to criminally investigate or prosecute any alcohol or drug abuse patient.[facility] CenterIn the event this information is protected by the Federal Confidentiality of Alcohol and Drug Abuse Patient Records regulations: The Federal rules restrict any use of the information to criminally investigate or prosecute any alcohol or drug abuse patient.[facility] CenterIn the event this information is protected by the Federal Confidentiality of Alcohol and Drug Abuse Patient Records regulations: The Federal rules restrict any use of the information to criminally investigate or prosecute any alcohol or drug abuse patient.[facility] CenterIn the event this information is protected by the Federal Confidentiality of Alcohol and Drug Abuse Patient Records regulations: The Federal rules restrict any use of the information to criminally investigate or prosecute any alcohol or drug abuse patient.[facility] CenterIn the event this information is protected by the Federal Confidentiality of Alcohol and Drug Abuse Patient Records regulations: The Federal rules restrict any use of the information to criminally investigate or prosecute any alcohol or drug abuse patient.[facility] CenterIn the event this information is protected by the Federal Confidentiality of Alcohol and Drug Abuse Patient Records regulations: The Federal rules restrict any use of the information to criminally investigate or prosecute any alcohol or drug abuse patient.[facility] CenterIn the event this information is protected by the Federal Confidentiality of Alcohol and Drug Abuse Patient Records regulations: The Federal rules restrict any use of the information to criminally investigate or prosecute any alcohol or drug abuse patient.[facility] CenterIn the event this information is protected by the Federal Confidentiality of Alcohol and Drug Abuse Patient Records regulations: The Federal rules restrict any use of the information to criminally investigate or prosecute any alcohol or drug abuse patient.[facility] CenterIn the event this information is protected by the Federal Confidentiality of Alcohol and Drug Abuse Patient Records regulations: The Federal rules restrict any use of the information to criminally investigate or prosecute any alcohol or drug abuse patient.[facility] CenterIn the event this information is protected by the Federal Confidentiality of Alcohol and Drug Abuse Patient Records regulations: The Federal rules restrict any use of the information to criminally investigate or prosecute any alcohol or drug abuse patient.[facility] CenterIn the event this information is protected by the Federal Confidentiality of Alcohol and Drug Abuse Patient Records regulations: The Federal rules restrict any use of the information to criminally investigate or prosecute any alcohol or drug abuse patient.[facility] CenterIn the event this information is protected by the Federal Confidentiality of Alcohol and Drug Abuse Patient Records regulations: The Federal rules restrict any use of the information to criminally investigate or prosecute any alcohol or drug abuse patient.[facility] CenterIn the event this information is protected by the Federal Confidentiality of Alcohol and Drug Abuse Patient Records regulations: The Federal rules restrict any use of the information to criminally investigate or prosecute any alcohol or drug abuse patient.[facility] CenterIn the event this information is protected by the Federal Confidentiality of Alcohol and Drug Abuse Patient Records regulations: The Federal rules restrict any use of the information to criminally investigate or prosecute any alcohol or drug abuse patient.[facility] Reason for Visit (unrecogniz ed [...] to touch x 1 week hit on glass enamel mixer Reason Comments Radiology CT Specialty Diagnoses / Procedures Referred By Armando t Referred To Contact CT IMAGING Diagnoses Atherosclerosis of aorta (HCC) Procedures CTA ABD/PEL W IVCON CT ANGIO ABD&PLVIS CNTRST MTRL W/WO CNTRST Radha Bob PA-C [address] [place] [address] [place] [address] Referral ID Status Reason Start Date Expiration Date V isits Requested Visits Authorized [id number] Closed Auto-Generate d Referral 04/30/2023 07/29/2023 1 [...] Health PT Plan of Care Reason Comments Senior Care Plan of Care Reason Comments Oxygen FYI-No Action Needed Reason Comments Orders patient POC Reason Comments Patient Update Reason Comments [id number] Initial Consult Care Teams (unrecognized sec tion and content) Vp Biology Relationship Specialty Start Date End Date Radha Durbin PA-C [address] [facility] [place] [address] PCP - General Family Practice 09/20/21 Vp Biology Relationship Specialty Start Date End Date Radha Durbin PA-C [address] [facility] [place] [address] PCP - General Family Medicine 09/20/21 Vp Biology Relationship Specialty Start Date End Date Radha Durbin PA-C [address] [facility] [place] [address] PCP - General Family Medicine 09/20/21 Vp Biology Relationship Specialty Start Date End Date Radha Durbin PA-C [address] [facility] [place] [address] PCP - General Family Medicine 09/20/21 Vp Biology Relationship Specialty Start Date End Date Radha Durbin PA-C [address] [facility] [place] [address] PCP - General Family Medicine 09/20/21 Vp Biology Relationship Specialty Start Date End Date Radha Durbin PA-C [address] [facility] [place] [address] PCP - General Family Medicine 09/20/21 Vp Biology Relationship Specialty Start Date End Date Radha Durbin PA-C [address] [facility] [place] [address] PCP - General Family Medicine 09/20/21 Vp Biology Relationship Specialty Start Date End Date Radha Durbin PA-C [address] [facility] [place] [address] PCP - General Family Medicine 09/20/21 Vp Biology Relationship Specialty Start Date End Date Radha Durbin PA-C [address] [facility] [place] [address] PCP - General Family Medicine 09/20/21 Vp Biology Relationship Specialty Start Date End Date Radha Durbin PA-C [address] [facility] [place] [address] PCP - General Family Medicine 09/20/21 Vp Biology Relationship Specialty Start Date End Date Radha Durbin PA-C [address] [facility] [place] [address] PCP - General Family Medicine 09/20/21 Vp Biology Relationship Specialty Start Date End Date Radha Durbin PA-C [address] [facility] [place] [address] PCP - General Family Medicine 09/20/21 Vp Biology Relationship Specialty Start Date End Date Radha Durbin PA-C [address] [facility] [place] [address] PCP - General Family Medicine 09/20/21 Vp Biology Relationship Specialty Start Date End Date Radha Durbin PA-C [address] [facility] [place] [address] PCP - General Family Medicine 09/20/21 Vp Biology Relationship Specialty Start Date End Date Radha Durbin PA-C [address] [facility] [place] [address] PCP - General Family Medicine 09/20/21 Vp Biology Relationship Specialty Start Date End Date Radha Durbin PA-C [address] [facility] [place] [address] PCP - General Family Medicine 09/20/21 Team [...] Dr. Jerrell Faith MD Attending Provider Active Vp Biology Relationship Specialty Start Date End Date Radha Durbin PA-C [address] [place] [address] PCP - General Family Medicine 09/20/21 Vp Biology Relationship Specialty Start Date End Date Radha Durbin PA-C [address] [place], [place] [id number] PCP - General Family Medicine 09/20/21 Vp Biology Relationship Specialty Start Date End Date Radha Durbin PA-C [address] [place], [place] [id number] PCP - General Family Medicine 09/20/21 Vp Biology Relationship Specialty Start Date End Date Radha Durbin PA-C [address] [place], [place] [address] PCP - General Family Medicine 09/20/21 Vp Biology Relationship Specialty Start Date End Date Radha Durbin PA-C [address] [facility] [place] [address] PCP - General Family Medicine 09/20/21 Vp Biology Relationship Specialty Start Date End Date Radha Durbin PA-C [address] [facility] [place] [address] PCP - General Family Medicine 09/20/21 Vp Biology Relationship Specialty Start Date End Date Radha Durbin PA-C [address] [facility] [place] [address] PCP - General Family Medicine 09/20/21 Vp Biology Relationship Specialty Start Date End Date Radha Durbin PA-C [address] [facility] [place] [address] PCP - General Family Medicine 09/20/21 Vp Biology Relationship Specialty Start Date End Date Brigitte Segal, MAGAZINE SUPERVISOR.[employer] [address] [place] [address] PCP - General Family Medicine 09/08/24 Yuliana Patton, MAGAZINE SUPERVISOR.[employer] [address] [facility] [place] [address] [employer] Family Medicine 07/04/24 Brigitte Segal, MAGAZINE SUPERVISOR[employer] [address] [facility] [place] [address] [employer] Plate Installer Family Medicine 07/04/24 Vp Biology Relationship Specialty Start Date End Date Brigitte Segal, MAGAZINE SUPERVISOR[employer] [address] [facility] [place] [address] PCP - General Family Medicine 09/08/24 Yuliana Patton, MAGAZINE SUPERVISOR.[employer] [address] [place] [address] Kick Plate Installer Family Medicine 07/04/24 Brigitte Segal, MAGAZINE SUPERVISOR.[employer] [address] [place] [address] [facility] Vp Biology Relationship Specialty Start Date End Date Brigitte Segal, MAGAZINE SUPERVISOR.[employer] [address] [place] [address] PCP - General Family Medicine 09/08/24 Yuliana Patton, MAGAZINE SUPERVISOR.[employer] [address] [place] [address] [facility] 07/04/24 Brigitte Segal, MAGAZINE SUPERVISOR.[employer] [address] [place] [address] [facility] 07/04/24 Vp Biology Relationship Specialty Start Date End Date Brigitte Segal, MAGAZINE SUPERVISOR[employer] [address] [place] [address] PCP - General Family Medicine 09/08/24 Yuliana Patton, MAGAZINE SUPERVISOR[employer] [address] [place] [address] [facility] Medicine 07/04/24 Brigitte Segal, MAGAZINE SUPERVISOR[employer] [address] [place] [address] Kick Plate Installer Family Medicine 07/04/24 Vp Biology Relationship Specialty Start Date End Date Brigitte Segal, MAGAZINE SUPERVISOR.[employer] [address] [facility] [place] [address] PCP - General Family Medicine 09/08/24 Yuliana Patton, MAGAZINE SUPERVISOR.[employer] [address] [facility] [place] [address] [employer] Family Medicine 07/04/24 Brigitte Segal, MAGAZINE SUPERVISOR.[employer] [address] [facility] [place] [address] [facility] 07/04/24 Vp Biology Relationship Specialty Start Date End Date Brigitte Segal, MAGAZINE SUPERVISOR[employer] [address] [place] [address] PCP - General Family Medicine 09/08/24 Yuliana Patton, MAGAZINE SUPERVISOR.[employer] [address] [facility] [place] [address] [facility] 07/04/24 Brigitte Segal, MAGAZINE SUPERVISOR.[employer] [address] [facility] [place] [address] [facility] 07/04/24 Vp Biology Relationship Specialty Start Date End Date Brigitte Segal, MAGAZINE SUPERVISOR.[employer] [address] [facility] [place] [address] PCP - General Family Medicine 09/08/24 Vp Biology Relationship Specialty Start Date End Date Brigitte Segal, MAGAZINE SUPERVISOR.[employer] [address] [facility] [place] [address] PCP - General Family Medicine 09/08/24 Yuliana Patton, MAGAZINE SUPERVISOR.[employer] [address] [facility], [place] [address] [facility] 07/04/24 10/20/24 Brigitte Segal, MAGAZINE SUPERVISOR.[employer] [address] [facility] [place], [place] [address] [facility] 07/04/24 10/20/24 Vp Biology Relationship Specialty Start Date End Date Brigitte Segal, MAGAZINE SUPERVISOR[employer] [address] [facility] [place], [place] [address] PCP - General Family Medicine 09/08/24 Team Status: Active Member Role Status Dates MARIANA Humphreys Primary Care Provider Active Team Status: Inactive Member Role Status Dates Dr. Neo Tejeda DO Emergency Provider Active Start: September 07, 2024 End: September 15, 2024 MARIANA Humphreys Primary Care Provider Active Start: September 07, 2024 End: September 15, 2024 Dr. Jerrell Faiht MD Admit Provider Active Star t: September [...] Start: September 08, 2024 Brigitte Suppan , CLEANING SPECIALIST Primary Care Provider Active Start: September 08, [...] Member Role Status Dates Brigitte Suppan , CLEANING SPECIALIST Primary Care Provider Active Start: September 08, 2024 Dr. Dejuan Brooks MD Attending Provider Active S tart: September 08, 2024 Team Status: Active Member Role Status Dates Dr. Neo Tejeda DO Emergency Provider Active Start: September 09, 2024 Brigitte Suppan , CLEANING SPECIALIST Primary Care Provider Active Start: September 09, [...] Start: September 10, 2024 Brigitte Suppan , CLEANING SPECIALIST Primary Care Provider Active Start: September 10, [...] Start: September 11, 2024 Brigitte Suppan , CLEANING SPECIALIST Primary Care Provider Active Start: September 11, 2024 Dr. Jerrell aFith MD Admit Provider Active Star t: September [...] Start: September 12, 2024 Brigittemillicent Segal , CLEANING SPECIALIST Primary Care Provider Active Start: September 12, [...] Start: September 13, 2024 Brigitte Segal , CLEANING SPECIALIST Primary Care Provider Active Start: September 13, [...] Start: September 14, 2024 Brigitte Segal , CLEANING SPECIALIST Primary Care Provider Active Start: September 14, [...] Start: September 15, 2024 Brigitte Segal , CLEANING SPECIALIST Primary Care Provider Active Start: September 15, [...] October 16, 2024 End: October 16, [address] JUSTICE, ADMINIST[facility]ATIVE [facility] JUSTICE-C Attending Provider Active Start: October 16, 2024 [...] section and content) DATE CREATED AUTHOR 10/18/[address] [facility] DATE CREATED AUTHOR AUTHOR'S ORGANIZ ATION 11/02/2024 [facility] DATE CREATED AUTHOR AUTHOR'S ORGANIZ ATION 2024 [facility] FOR RECORDS PERTAINING TO PATIENTS WHO [...] BE BASED ON THE PRIMARY CLINICAL RECORDS. [employer] provides no warranty or guarantee of the accuracy or completeness of information in this document.
[2025-02-08] MEDS: 0.9% Normal Saline (1000mL) 1,000 ML 100 ML IV (20:20)
--- OUTSIDE RECORDS SUMMARY | 2025-02-08 21:16 | XMS RPT_ITS | CCD ---
Author Organization [facility] Care Team Providers Care Timber Rider Name Role Phone Quan Mackenzie MD Unavailable Mela Patel Unavailable Unavailable Anjelica Walden Unavailable Unavailable Radha Durbin PA-C Primary Care Provider [phone] Dr. Brian Mackenzie III Referring Provider Dr. Dejuan Brooks Attending Provider CHRISTINE Blount Primary Care Provider Dr. Dejuan Brooks Referring Provider Dr. Dejuan Brooks Other Provider Radha Durbin PA-C Primary Care Provider [phone] CHRITSINE Blount Primary Care Provider Dr. Dejuan Brooks [...] Radha Durbin PA-C Primary Care Provider Haagen PACKING MACHINE PILOT CAN ROUTER.GOLF BALL COVER TREATER, Yuliana Unavailable Suppan PACKING MACHINE PILOT CAN ROUTER.GOLF BALL COVER TREATER, Brigitte A Unavailable [phone] Suppan PACKING MACHINE PILOT CAN ROUTER.GOLF BALL COVER TREATER, Brigitte A Primary Care Provi emilia Radha Blount Primary Care Unavailable Mary Hill Attending Unavail able Mary Hill Referring Unavail able Radha Blount Primary Care Unavailable Tamra Ivey Attending Unavailable KitJerrell nuñez Consulting Unavailable Suppan, Brigitte Primary Care Unavailable KitJerrell nuñez Admitting Unavailable Martínez John Attending Unavailable Lester Perdomo Consulting Unavailable Lester Perdomo Attending Unavailable Jerrell Faith Admitting Unavailable Suppan, Brigitte Primary Care Unavailable KittoJerrell ariza Consulting Unavailable Joppgibson, Lester Consulting Unavailable Martínez John Attending Unavailable Martínez, John Consulting Unavailable Jerrell Faith Attending Unavailable Suppan, Brigitte Primary Care Unavailable Dejuan Brooks Attending Unavailable Suppan, Brigitte Primary Care Unavailable Suppan, Brigitte Referring Unavailable Claudia FREELANCE INTERPRETER/TRANSLATOR, Kalyn Attending Unavailable Radha Blount Referring Unavailable Radha Blount Primary Care Unavailable Mary Hill Attending Unavail able Suppan, Brigitte Primary Care Unavailable Taylor FREELANCE INTERPRETER/TRANSLATOR, Kalyn Referring Unavailable Taylor FREELANCE INTERPRETER/TRANSLATOR, Kalyn Attending Unavailable Haagen PACKING MACHINE PILOT CAN ROUTER.GOLF BALL COVER TREATER, Yuliana Unavailable Suppan PACKING MACHINE PILOT CAN ROUTER.GOLF BALL COVER TREATER, Brigitte A Unavailable [phone] SUPPAN, BRIGITTE A Attending Unavailable DURBINCASPER BENJAMINORY Primary Care Unavailable SUPPAN, BRIGITTE A Attending Unavailable SUPPAN, BRIGITTE A Primary Care Unavailable CASPER DURBIN Attending Unavailable CASPER DURBIN Primary Care Unavailable CASPER DURBIN Referring Unavailable DURBINCASPER BENJAMINORY Primary Care Unavailable SUPPAN, BRIGITTE A Attending Unavailable DURBINCASPERORY Primary Care Unavailable SUPPAN, BRIGITTE A Referring Unavailable DURBIN, CASPER JUSTIN Primary Care Unavailable Dr. Neo Tejeda DO Emergency Provider [phone] Suppan VOICE INTERCEPT TECHNICIAN, Brigitte Primary Care Provider Kittoe MD, Dr. Allan Admit Provider Unavailable Marcell MANUEL, Dr. Allan Other Provider Unavailable Martínez MANUEL, Dr. Lopez Attending Provider Laenne PEDERSON, Dr. Batista Other Provider Marcell MANUEL, Dr. Allan Attending Provider Unavaila ble Leanne PDEERSON, Dr. Batista Attending Provider Todd MANUEL, Dr. Zaidi Attending Provider [phone] Martínez MANUEL, Dr. Lopez Other Provider Suppan VOICE INTERCEPT TECHNICIAN, Brigitte Referring Provider Claudia FREELANCE INTERPRETER/TRANSLATOR-CKalyn Attending Provider Suppan VOICE INTERCEPT TECHNICIAN, Brigitte Primary Care Provider Provider, Ed Physician Emergency Provider Dimitris Sanford MD, Dr. Janice Hillman Attending Provider Dr. Shahab Teixeira DO Emergency Provider [phone] Juvenal MANUEL, Dr. Janice Hillman Admit Provider Allergies Allergy Classification Reported Allergen(s) Allergy Type Date of Onset Reaction(s) Facility (20 sources) lisinopril; Translations: [LISINOPRIL] Drug Allergy 0 Cough [facility] Work Phone: Comment on above: cough (6 sources) sulfADIAZINE Drug Allergy 7 [facility] Work Phone: (20 sources) Sulfonamides (Antibiotic); Translations: [SULFA (SULFONAMIDE ANTIBIOTICS)] Drug Allergy 6 [facility] (5 sources) Sulfonamides (Antibiotic) Allergy to substance 2 Rash [facility] (1 source) Lisinopril Drug Allergy 5 [facility] (1 source) Sulfonamides (Antibiotic) Drug allergy (disorder) 5 [facility] Medications Current Medications Medication Drug [...] Start: 09-15-2024 take 2 tablets by mo uth once daily Amlodipine 5 mg tablet Active 10 mg PO DAILY 0 30 0 September 15, 2024 2:40pm bp Start: 02-25-2024 End: 02-24-2025 take 1 tablet by mouth once daily Amlodipine 5 mg tablet Discontinued 5 mg PO DAILY September 07, 2024 1:00am September 15, 2024 2:40pm bp Start: 02-19-2024 End: 09-07-2024 take 5 mg by mouth once daily Amlodipine 10 mg tablet Discontinued 5 mg PO DAILY February 19, 2024 11:53am September 07, 2024 4:22pm BLOOD PESSURE Start: 07-07-2023 End: 02-25-2024 take 1 tablet [...] 04, 2019 1:00am February 19, 2024 11:53am BLOOD PESSURE Start: 08-20-2017 End: 09-04-2019 take 2 tablets [...] daily. ascorbic acid 1000 mg oral tablet (12 sources) Vitamin C Start: 01-18-2020 Ascorbic Acid (Vitamin C) 1,000 MG tablet Active 250 mg PO DAILY January 18, 2020 12:00am SUPPLEMENT Start: 01-18-2020 take 1 tablet by lissa th once daily Ascorbic Acid (Vitamin C) 1,000 MG tablet Active 1000 mg PO DAILY January 18, 2020 12:00am Start: 03-17-2014 End: 09-04-2019 take 2 tablets by mouth once daily Ascorbic Acid (Vitamin C) 500 MG tablet Discontinued 1000 mg PO DAILY@0800 March 17, 2014 12:00am September 04, 2019 2:14pm Start: 03-17-2014 End: 09-04-2019 take 1000 mg by mouth once daily Ascorbic Acid (Vitamin C) Discontinued 1000 MG PO DAILY@0800 March 16, 2014 11:00pm September 04, 2019 1:14pm [...] LDL goal , PAD (peripheral artery disease) ([facility]) Take 1 tablet by mouth once daily. [...] LDL goal , PAD (peripheral artery disease) ([facility]) Take 1 tablet by mouth once daily. 90 tablet 3 08/07/2023 Active Start: 09-09-2019 End: 06-28-2023 take 1 tablet by mouth once daily Atorvastatin 10 mg tablet Discontinued 10 mg PO DAILY 90 3 October 29, 2019 4:09pm August 25, 2020 [...] mg PO DAILY March 17, 2014 12:00am DEPRESSION Comment on above: Take 1 tablet by [...] mg PO DAILY August 26, 2020 1:00am PROSTATE Comment on above: Take 1 tablet by lissa th once daily. hydroCHLOROthiazide 25 mg oral tablet (20 sources) Thiazide Diuretic Start: Hydrochlorothiazide 25 mg tablet Active 12.5 mg PO DAILY September 07, 2024 1:00am BLOOD PRESSURE Start: 09-25-2023 End: 03-27-2024 take 0.5 tablet [...] 20, 2020 3:15pm September 07, 2024 4:22pm BLOOD PRESSURE Start: 03-17-2014 End: 10-02-2019 take 1 capsule by mouth once daily Hydrochlorothiazide 12.5 MG capsule Discontinued 12.5 mg PO DAILY March 17, 2014 12:00am October 02, 2019 5:07pm Comment on above: Take 1 tablet by lissa th once daily. Take 0.5 tablets by mouth once daily. lactobacillus acidophilus [id number] unt oral capsule (20 sources) Start: 08-04-2023 [...] mg PO DAILY August 01, 2023 1:00am BLOOD PRESSURE Start: 09-30-2019 End: 04-25-2021 take 1 tablet by mouth once daily Metoprolol Succinate 25 mg tablet extended release 24 hr Discontinued 25 mg PO DAILY September 20, 2020 3:15pm April 25, 2021 10:20am Check with primary doctor Start: 09-04-2019 End: 09-30-2019 take 1 tablet by mouth once daily Metoprolol Succinate (Toprol Xl) 50 mg tablet extended release 24 hr Discontinued 50 mg PO DAILY 90 3 September 04, 2019 1:00am September 30, 2019 7:58pm Comment on above: Take 1 tablet by lissa th once daily. HOLD 04/18/21 Take 1 tablet [...] 03/01/2024 Active mirtazapine 7.5 mg oral tablet (7 sources) Start: 09-19-19 End: 03-18-20 take 1 tablet by mouth at bedtime as needed Mirtazapine 7.5 mg tablet Active 7.5 mg PO AT BEDTIME NEEDED as needed for insomnia February 08, 2025 12:00am Multivitamin 1 EACH tablet (2 sources) Start: 05-16-20 Multivitamin 1 EACH tablet Active 1 NMA PO DAILY May 16, 2017 12:00am [facility] Start: 05-16-2017 Multivitamin 1 EACH tablet Active 1 NMA PO DAILY May 16, 2017 12:00am Multivitamin preparation (20 sources) Start: 05-16-2017 Multivitamin A ctive 1 EACH PO DAILY May 15, 2017 11:00pm Start: 05-16-2017 Multivitamin A ctive 1 EACH PO DAILY May 16, 2017 12:00am MULTIVITAMIN (MU LTIPLE VITAMINS ORAL) Take by mouth once daily. Active MULTIVITAMIN (MU LTIPLE VITAMINS ORAL) Take by mouth once daily. 0 Active Comment on above: Take by mouth once d aily. pantoprazole 40 mg delayed release oral tablet (16 sources) Proton Pump Inhibitor Start: 4 End: 5 take 1 tablet by mouth once daily Pantoprazole 40 mg tablet,delayed release (DR/EC) Active 40 mg PO DAILY September 07, 2024 1:00am gerd [place] (7 sources) Start: take 1 capsule by mouth once daily [place] 450 mg capsule Active 450 mg PO DAILY February 08, 2025 12:00am prostate Start: 05-08-2017 take 1 tablet by lissa twice daily [facility] SAW PALMETTO CAPS 320 mg. One tablet by mouth twice daily SAW PALMETTO (SERENOA REPENS) CAPS [id number] Anjelica Walden tamsulosin hydrochloride 0.4 mg oral capsule (20 sources) alpha-Adrenergic Becka Start: 09-04-2019 End: 09-19-2024 take 2 capsules by mouth once daily [...] on above: Take 1 capsule by mo idh once daily. Take 2 capsules by m out once daily. Completed/Discontinued Medications Medication Drug Class(es) Dates Sig (Normalized) Sig (Original) acetaminophen 325 mg / HYDROcodone bitartrate 5 mg oral tablet (20 sources) Opioid Agonist Start: 02-18-2023 End: 02-19-2024 [...] above: Take 1 tablet by lissa th every 8 hours as needed for pain. aspirin 81 mg delayed release oral tablet (20 sources) Platelet Aggregation Inhibitor, Nonsteroidal Anti-inflammatory Drug Start: 04-25-2021 End: 02-19-2024 take 1 tablet by mouth once daily Aspirin (Adult Aspirin Regimen) 81 mg tablet,delayed release (DR/EC) Discontinued 81 mg PO DAILY April 25, 2021 12:00am February 19, 2024 11:13am [facility] Start: 08-23-2020 End: 10-19-2020 take 1 tablet by mouth once daily Aspirin 81 MG tablet,chewable Discontinued 81 mg PO DAILY August 23, 2020 1:00am October 19, 2020 11:01am Check with primary doctor Start: 03-17-2014 End: 01-19-2020 take 1 tablet [...] times daily. cefdinir 300 mg oral capsule (3 sources) Cephalosporin Antibacterial Start: End: take 1 capsule by mouth twice daily Cefdinir 300 mg capsule Discontinued 300 mg PO TWICE A DAY 10 August 04, 2023 1:00am February 19, 2024 11:15am cephalexin 500 mg oral capsule (6 sources) Cephalosporin Antibacterial Start: End: take 1 capsule by mouth three times daily Cephalexin (Keflex) 500 mg capsule Discontinued 500 mg PO THREE TIMES A DAY 30 September 21, 2017 1:00am September 04, 2019 2:14pm space evenly during waking hours clopidogrel 75 mg oral tablet (20 sources) [id number] Platelet Inhibitor Start: End: take 1 tablet by mouth once daily Clopidogrel (Plavix) 75 mg tablet Discontinued 75 mg PO DAILY 90 June 28, 2020 2:05pm August 25, 2020 11:42pm Comment on above: Take 1 tablet by lissa once daily. cyclobenzaprine hydrochloride 10 mg oral tablet (6 sources) Muscle Relaxant Start: End: take 1 tablet by mouth three times daily as needed for muscle spasms Cyclobenzaprine 10 mg tablet Discontinued 10 mg PO THREE TIMES A DAY as needed for muscle spasm 14 September 18, 2021 1:00am August 01, 2023 5:03pm dexamethasone 6 mg oral tablet (18 sources) Corticosteroid Start: End: take 1 tablet by mouth once daily Dexamethasone 6 MG tablet Discontinued 6 mg PO DAILY 0 September 02, 2020 12:26pm April 25, 2021 10:21am Check with primary doctor take for 2 more days ferrous sulfate 325 mg oral tablet (6 sources) Start: End: take 1 tablet by mouth twice daily Ferrous Sulfate 325 MG tablet Discontinued 325 mg PO TWICE A DAY August 23, 2020 1:00am April 25, 2021 10:21am Check with primary doctor 12 hr guaiFENesin 1200 mg extended release oral tablet (3 sources) Start: End: take 1 tablet by mouth twice daily, then take 1 tablet by mouth every twelve hours Guaifenesin (Mucus Relief Er) 1,200 mg Tablet Extended Release 12hr Discontinued 1200 mg PO TWICE A DAY 20 0 August 04, 2023 1:00am February 19, 2024 11:15am latanoprost 0.05 mg/ml ophthalmic solution (10 sources) Prostaglandin Analog Start: End: take 1 drop(s) into the eye(s) at bedtime Latanoprost 0.005 % drops Discontinued 1 NMA OPHTHALMIC AT BEDTIME August 01, 2023 1:00am September 07, 2024 4:21pm GLAUCOMA INSTILL ONE DROP INTO BOTH EYES AT BEDTIME Start: 08-01-2023 take 1 drop(s) into the eye(s) at bedtime Latanoprost Active 1 DRP OPHTHALMIC AT BEDTIME August 01, 2023 12:00am INSTILL ONE DROP INTO BOTH EYES AT BEDTIME Start: 08-26-2020 End: 08-01-2023 Latanoprost (Pf) 7.5 ML drop s Discontinued 1 NMA EACH EYE AT BEDTIME August 26, 2020 1:00am August 01, 2023 4:41pm Check with primary doctor Start: 08-26-2020 End: 08-01-2023 Latanoprost (Pf) Discontinue d 1 DRP EACH EYE AT BEDTIME August 26, 2020 12:00am August 01, 2023 3:41pm Multivitamin With Minerals (2 sources) Start: 08-01-2023 End: 08-01-2023 take 1 tablet by mouth once daily Multivitamin With Minerals Discontinued 1 TABLET PO DAILY August 01, 2023 12:00am August 01, 2023 4:08pm Multivitamin With Minerals tablet (2 sources) Start: 08-01-2023 End: 08-01-2023 Multivitamin With Minerals tablet Discontinued 1 {tbl} PO DAILY August 01, 2023 1:00am August 01, 2023 5:08pm mupirocin 0.02 mg/mg topical ointment (6 sources) RNA Synthetase Inhibitor Antibacterial Start: 08-23-2020 End: 01-03-2024 Mupirocin 1 APPLIC ointment Discontinued 1 NMA TOPICAL THREE TIMES A DAY August 23, 2020 1:00am August 01, 2023 5:08pm Check with primary doctor Start: 08-23-2020 End: 08-01-2023 Mupirocin Discontinued 1 [...] for pain and inflammation with food NAPROXEN [id number] Anjelica Walden niacin 500 mg extended release oral capsule (20 sources) Nicotinic Acid Start: 09-16-2019 End: 02-19-2024 take 1 capsule by mouth once daily Niacin 500 mg capsule, extended release Discontinued 500 mg PO DAILY September 16, 2019 1:00am February 19, 2024 11:15am SUPPLEMENT Start: 09-16-2019 take 500 mg by mouth twice daily Niacin Active 500 MG PO TWICE A DAY September 16, 2019 12:00am Start: 05-08-2017 take 1 tablet by lissa th twice daily NIACIN 500 MG TABS One tablet by mouth twice daily NIACIN [id number] Anjelica Walden Start: 03-17-2014 End: 09-09-2019 take 1 [...] sources) Nitrate Vasodilator Start: 08-25-19 End: 08-01-19 Nitroglycerin 0.4 mg tablet, sublingual Discontinued 0.4 mg SL every 5 to 15 minutes September 04, 2019 1:00am August 01, 2023 4:53pm Check with primary doctor Comment on above: Dissolve 1 tablet un emilia the tongue every 5 minutes as needed for Chest Pain. omeprazole 40 mg delayed release oral capsule (20 sources) Proton Pump Inhibitor Start: 04-30-20 End: 09-07-19 take 1 capsule by mouth once daily Omeprazole 40 mg capsule,delayed release(DR/EC) Discontinued 40 mg PO DAILY August 01, 2023 1:00am September 07, 2024 4:22pm ACID REFLUX Start: 11-27-2022 End: 01-12-2024 take 2 capsules [...] 17, 2014 12:00am August 01, 2023 4:41pm Check with primary doctor Comment on above: Take 1 capsule by [facility] once daily. Take 2 capsules by [facility] once daily. predniSONE 20 mg oral tablet (4 sources) Start: 08-04-2023 End: 02-19-2024 take 1 tablet by mouth twice daily Prednisone 20 mg tablet Discontinued 20 mg PO TWICE A DAY 10 August 04, 2023 1:00am February 19, 2024 11:15am Start: 01-31-2023 End: 02-05-2023 take 3 tablets by mouth once daily predniSONE (DELTASONE) 10 mg tablet Take 3 tablets by mouth once daily for 5 days. 15 tablet 0 01/31/2023 02/05/2023 Active Comment on above: Take 3 tablets by [facility] once daily for 5 days. rOPINIRole 4 mg oral tablet (20 sources) Nonergot Dopamine Agonist Start: End: take 1 tablet by mouth three times daily Ropinirole 4 MG tablet Discontinued 4 mg PO THREE TIMES A DAY August 26, 2020 1:00am April 25, 2021 10:22am Check with primary doctor Comment on above: Take 1 tablet by [facility] three times daily. traZODone hydrochloride 50 mg oral tablet (20 sources) Serotonin Reuptake Inhibitor Start: 3 End: 5 take 1 tablet by mouth at bedtime Trazodone 50 mg tablet Discontinued 50 mg PO AT BEDTIME August 01, 2023 1:00am September 07, 2024 4:22pm SLEEP Start: 11-27-2022 End: 01-12-2023 take 0.5 tablet [...] Classification Problem Date Documented Da te Episodic/Chronic Acute cerebrovascular disease (2 sources) Cerebrovascular accident; Translations: [Cerebral infarction, unspecified] 02-08-2025 Chronic Alcohol-related disorders (1 source) Alcohol abuse; Translations: [Alcohol abuse, uncomplicated] 12-26-2023 Chronic Anxiety disorders (20 sources) Anxiety state; Translations: [Generalized anxiety disorder] Onset: 9 05-08-2017 Chronic Chronic obstructive pulmonary disease and bronchiectasis (8 sources) Chronic obstructive pulmonary disease, unspecified; Translations: [...] 0 01-27-2020 Chronic Deficiency and other anemia (6 sources) Chronic anemia; Translations: [Anemia, unspecified] 10-18-2020 [...] 6 05-08-2017 Chronic Fluid and electrolyte disorders (6 sources) Hypokalemia; Translations: [Hypokalemia] 08-01-2023 Episodic Genitourinary symptoms and ill-defined conditions (13 sources) Blood in urine; Translations: [Hematuria, unspecified] Onset: 3 09-04-2019 Episodic Hyperplasia of prostate (20 sources) Benign prostatic hyperplasia; Translations: [Benign prostatic hyperplasia without lower urinary tract symptoms] Onset: 3 05-08-2017 Chronic Miscellaneous mental health disorders (5 sources) Chronic insomnia; Translations: [Psychophysiologic insomnia] Chronic Nonspecific chest pain (6 sources) Chest pain; Translations: [Chest pain, unspecified] 08-23-2019 Episodic Other aftercare (1 source) Post-discharge follow-up; Translations: [Encounter for follow-up examination after completed treatment for conditions other than malignant neoplasm] 09-25-2023 Episodic Other aftercare (1 source) Drug therapy finding; Translations: [Other detention (current) drug therapy] 12-24-2023 Episodic Other bone [...] 0 01-27-2020 Chronic Other lower respiratory disease (6 sources) Dyspnea on exertion; Translations: [Other forms of dyspnea] 10-18-2020 Episodic Other lower respiratory disease (13 sources) Hypoxia; Translations: [Hypoxemia] 08-01-2023 Episodic Other lower respiratory disease (6 sources) Dyspnea; Translations: [Shortness of breath] 08-01-2023 [...] conditions (not mental disorders or infectious disease) (19 sources) CT of head abnormal; Translations: [Abnormal findings on diagnostic imaging of skull and head, not elsewhere classified] Episodic Other upper respiratory disease (5 sources) Bleeding from nose; Translations: [Epistaxis] 06-29-2022 [...] 7 x 30 mm Protege stenting 03/18/14; DIRECTOR REPORT 5 x 2 Powerflex and 6 x 6 coated balloon gluten ox therapy LLE 08/2017 Pneumonia (except that caused by tuberculosis or sexually transmitted disease) (7 sources) Pneumonia; Translations: [Pneumonia, unspecified organism] 08-01-2023 Episodic Pulmonary heart disease (5 sources) Pulmonary hypertension, unspecified; Translations: [Pulmonary hypertension] Onset: 5 10-16-2024 Chronic Comment on above: PASP 86 mmHg Residual codes; unclassified (1 source) Forgetful; Translations: [Other general symptoms and signs] 12-24-2023 Episodic Spondylosis; intervertebral disc disorders; other back problems (12 sources) Acute thoracic back pain; Translations: [Pain in thoracic spine] Episodic Superficial injury; contusion (1 source) Abrasion, right lower leg, initial encounter; Translations: [Abrasion or friction burn of hip, thigh, leg, and ankle, without mention of infection] 05-25-2023 Episodic Unclassified (1 source) out of office, please call to schedule appointment Urinary tract infections (6 sources) Urinary tract infectious disease; Translations: [Urinary tract infection, site not specified] 09-04-2019 Episodic Viral infection (12 sources) COVID-19; Translations: [Severe acute respiratory syndrome coronavirus 2 (SARS-CoV-2) detected] Onset: 02-07-2022 Episodic Past or Other Problems Problem [...] 05-08-2017 Episodic Other aftercare (1 source) Other extermination supervisor (current) drug therapy; Translations: [Current use of proton pump inhibitor] Onset: 12-25-2023 Episodic Other circulatory disease (5 sources) Stented artery; Translations: [Peripheral vascular angioplasty status with implants and grafts] Onset: 05-08-2017 05-08-2017 Episodic Other circulatory disease (6 sources) History of peripheral vascular angioplasty; Translations: [Peripheral vascular angioplasty status] Onset: 08-30-2017 02-08-2022 Episodic Comment on above: left superficial fem oral artery, 7 x 30 mm Protege stenting 03/18/14; DIRECTOR REPORT 5 x 2 Powerflex and 6 x [...] Test Name Value Interpretation Reference Range Facility Absolute lymphocyte countOrd ered By: ED PROVIDER on 02-08-2025 Lymphocytes Auto (Unsp spec) [#/Vol] 1.00 10*3/uL 0.83-4.51 [facility] Absolute neutrophil countOrd ered By: ED PROVIDER on 02-08-2025 Neutrophils (Bld) [#/Vol] 7.7 10*3/uL 2.0-7.7 [facility] Activated partial thrombopla stin time (aPTT) in platelet poor plasma by coagulation aOrdered By: ED PROVIDER on 02-08-2025 aPTT Coag (PPP) [Time] 26.3 s 24.1-36.2 [facility] Anion gap in Serum or Plasma Ordered By: ED PROVIDER on 02-08-2025 Anion gap [Moles/Vol] 18 mmol/L High 5-15 [facility] BUN/creatinine ratioOrdered By: ED PROVIDER on 02-08-2025 Urea nitrogen/Creatinine [Mass ratio] 16.5 mg/mg 10-20 [facility] Basophil percentageOrdered B y: ED PROVIDER on 02-08-2025 Basophils/100 WBC (Bld) 0.7 % 0-1 [facility] Blood platelets count (numbe r/volume)Ordered By: ED PROVIDER on 02-08-2025 Platelets (Bld) [#/Vol] 200 10*3/uL 150-450 [facility] Carbon dioxide, total [Moles /volume] in Central venous bloodOrdered By: ED PROVIDER on 02-08-2025 CO2 [Moles/Vol] 20.0 mmol/L Low 21.0-32.0 [facility] Chloride assayOrdered By: ED PROVIDER on 02-08-2025 Chloride [Moles/Vol] 103 mmol/L 98-108 [facility] Eosinophil %Ordered By: ED P ROVIDER on 02-08-2025 Eosinophils/100 WBC (Bld) 4.1 % 0-5 [facility] Erythrocyte distribution wid th ratioOrdered By: ED PROVIDER on 02-08-2025 Erythrocyte distribution width (RBC) [Ratio] 14.8 % High 11.6-14.6 [facility] Glomerular filtration rate ( GFR) estimation/1.73 sq m using serum, plasma, or whole bOrdered By: ED PROVIDER on 02-08-2025 GFR/1.73 sq M.predicted among non-blacks MDRD (S/P/Bld) [Vol rate/Area] 52 mL/min/{1.73_m2} Low >60 [facility] Hematocrit Auto (Bld) [Volum e fraction]Ordered By: ED PROVIDER on 02-08-2025 Hematocrit (Bld) [Volume fraction] 47.7 % 40-54 [facility] Hemoglobin measurementOrdere d By: ED PROVIDER on 02-08-2025 Hemoglobin (Bld) [Mass/Vol] 16.3 g/dL 13.0-16.5 [facility] Immature granulocyte percent ageOrdered By: ED PROVIDER on 02-08-2025 Immature granulocytes/100 WBC (Bld) 1.500 % High 0.0-0.9 [facility] Comment on above: IG% - Immature Granu locytes (promyelocytes, myelocytes and metamyelocytes) > 1% indicates that a LEFT SHIFT is Present. International normalized rat io (INR) calculationOrdered By: ED PROVIDER on 02-08-2025 INR Coag (Bld) [Relative time] 1.0 {INR} [facility] Lymphocyte %Ordered By: ED P ROVIDER on 02-08-2025 Lymphocytes/100 WBC (Bld) 9.9 % Low 19-41 [facility] MCV (mean corpuscular volume ) determinationOrdered By: ED PROVIDER on 02-08-2025 MCV (RBC) [Entitic vol] 89.5 fL 80-94 [facility] Magnesium measurement (mass/ volume)Ordered By: Janice Sanford on 02-08-2025 Magnesium (Unsp spec) [Mass/Vol] 1.8 mg/dL 1.5-2.2 [facility] [facility] Mean corpuscular hemoglobin (MCH) determinationOrdered By: ED PROVIDER on 02-08-2025 MCH (RBC) [Entitic mass] 30.6 pg 27.0-32.0 [facility] Mean corpuscular hemoglobin concentration (MCHC) determinationOrdered By: ED PROVIDER on 02-08-2025 MCHC (RBC) [Mass/Vol] 34.2 g/dL 32-36 [facility] Mean platelet volume determi nationOrdered By: ED PROVIDER on 02-08-2025 Platelet mean volume (Bld) [Entitic vol] 11.3 fL 6.2-12.0 [facility] Monocyte percentageOrdered B y: ED PROVIDER on 02-08-2025 Monocytes/100 WBC (Bld) 8.0 % 0-10 [facility] Neutrophil %Ordered By: ED P ROVIDER on 02-08-2025 Neutrophils/100 WBC (Bld) 75.8 % High 47-70 [facility] Potassium measurement (mass/ volume)Ordered By: ED PROVIDER on 02-08-2025 Potassium (Unsp spec) [Mass/Vol] 3.4 mmol/L 3.3-5.1 [facility] Prothrombin timeOrdered By: ED PROVIDER on 02-08-2025 PT Coag (PPP) [Time] 13.1 s 11.7-14.9 [facility] RBC Auto (Bld) [#/Vol]Ordere d By: ED PROVIDER on 02-08-2025 RBC (Bld) [#/Vol] 5.33 10*6/uL 4.6-6.[address] [facility] RDWOrdered By: ED PROVIDER o n 02-08-2025 RDW 47.8 fl High 35.1-43.9 [facility] Serum creatinine measurement (mass/volume)Ordered By: ED PROVIDER on 02-08-2025 Creatinine [Mass/Vol] 1.39 mg/dL High 0.70-1.20 [facility] Serum glucose measurement (m ass/volume)Ordered By: ED PROVIDER on 02-08-2025 Glucose [Mass/Vol] 102 mg/dL High 70-99 [facility] Serum or plasma calcium nichole urement (mass/volume)Ordered By: ED PROVIDER on 02-08-2025 Calcium [Mass/Vol] 9.5 mg/dL 7.6-11.0 [facility] Serum or plasma ethanol nichole urement (mass/volume)Ordered By: ED PROVIDER on 02-08-2025 Ethanol [Mass/Vol] 223.0 mg/dL High <10.[address] [facility] Serum or plasma urea nitroge n measurement (mass/volume)Ordered By: ED PROVIDER on 02-08-2025 Urea nitrogen [Mass/Vol] 23 mg/dL High 4-19 [facility] Sodium levelOrdered By: ED P HALLIE on 02-08-2025 Sodium [Moles/Vol] 141 mmol/L 133-145 [facility] Troponin T.cardiac [Mass/vol ume] in Serum or Plasma by High sensitivity methodOrdered By: ED PROVIDER on 02-08-2025 Troponin T.cardiac High sensitivity method [Mass/Vol] 29 ng/L High <22 [facility] White blood cell (WBC) count Ordered By: ED PROVIDER on 02-08-2025 WBC (Bld) [#/Vol] 10.1 10*3/uL 4.4-11.[address] [facility] CNPNon 10-31-2024 CNPN Telephone ([facility]) CLARK LYLES ([id number]) 1935 M Date Time Provider Department 10/31/24 BRIGITTE SEGAL [facility] During your visit today, we recorded the following information about you: Jaqueline Andre, ZACKARY 10/31/2024 3:35 PM Signed Palliative Medicine Referral Assessment Referral Accepted: No, Reason for Denial: Chart reviewed, pal med order meant for [facility] [place]. Jaqueline Andre RN October 31, 2024 Allergies As of Date: 10/31/2024 Noted Allergy Reaction LISINOPRIL 12/28/2009 3 - Cough SULFA (SULFONAMIDE ANTIBIOTICS) 03/09/2006 4 - Hives Date Reviewed: 09/19/2024 Reviewed by: Shirley Rivera MA - Fully Assessed Reason for Visit: [id number] [Other] Initial Consult [665] Prescriptions as of [...] Meds Comments as of 04/18/2021: Taking Saw [place]. Problem List As Of Date 10/31/2024 Noted [...] chronic blood los*01/27/2020 Coronary artery disease involving wrangell rabago*12/22/2020 S/P primary angioplasty with coronary stent [Z9*12/22/2020 Fall from standing [W19.XXXA] 09/20/2021 Encounter for support and coordination of trans*08/11/2023 Acute respiratory failure with hypoxia (HCC) [J*09/25/2023 Encounter Status:Closed by JAQUELINE ANDRE on 10/31/24 [facility] 10-27-2024 [facility] Telephone ([facility]) CLARK LYLES ([id number]) 1935 M Date Time Provider Department 10/27/24 [facility] SEGAL [facility] During your visit today, we recorded the following information about you: Amita Kim LPN 10/27/2024 3:57 PM Signed Rohan with [facility] calls to report family is requesting order for palliative care. Fax order to [facility] [place]. Rohan also reports he saw pt today and is extending nurse to once a week x 2 weeks. Pt will then be discharged from Nursing. Rohan reports that Pulmonary gave new dx for pt of COPD and pulmonary htn. HIWOT Mariee Jacqueline A, APRN.[facility] 10/27/2024 4:52 PM Signed Please ask patient if he wants a palliative care consult? Palliative care is not end-of-life care but symptom management and chronic disease. Consult placed if patient wishes to be referred. Shira Mcgill RN 10/27/2024 5:14 PM Signed Pt called and [...] into accepting palliative care. ZACKARY Nova Amanda, ZACKARY 10/27/2024 5:51 PM Signed Pts daughter Pili [...] Signed Spoke to Paulino (not Rohan) with [facility]. Paulino reports that he did get [...] infection (HCC) [J44.0] Order(s):CONSULT TO PALLIATIVE CARE [[id number]] Order #: [id number]: 1 FUTURE Prescriptions as of 10/28/2024 - [...] Meds Comments as of 04/18/2021: Taking Saw [place]. Problem List As Of Date 10/27/2024 Noted Resolved BENIGN HYPERTENSION [I10] 01/08/2006 Anxiety state [F41.1] 01/05/2009 GERD (gastroesophageal reflux disease) [K21.9] 01/10/2011 BPH (benign prostatic hyperplasia) [N40.0] 03/17/2013 PAD (peripheral artery disease) ([facility]) [I73.9] 02/28/2014 Hyperlipidemia LDL goal <100 [E78.5] 03/28/2016 Hyperbilirubinemia [E80.6] 05/10/2016 Parkinson's disease (HCC) [G20.A1] 07/11/2017 Angina pectoris (HCC) [I20.9] 08/25/2019 Restless legs syndrome [G25.81] 01/27/2020 Iron deficiency anemia due to chronic blood los*01/27/2020 Coronary artery disease involving wrangell rabago*12/22/2020 S/P primary angioplasty with coronary stent [Z9*12/22/2020 Fall from standing [W19.XXXA] 09/20/2021 Encounter for support an (more content not included)... Normal [facility] Pulmonary Visit Reporton Pulmonary Visit Report [facility] [place] [address] [place] [address] OFFICE VISIT Date of Service: 10/16/24 MR#: [id number] Acct: [id number] Name: CLARK LYLES Rep #: [id number] : 1935 Provider: MALIKA Taylor Age/Sex: 88/M Location[place] [facility] [place] Status: Signed Assessment and Plan Assessment and [...] for hospital follow-up after recent hospitalization at [facility] from September 07 through September 15, [...] H Pu (more content not included)... Normal [facility] CNPNon 10-15-2024 [facility] Telephone ([facility]) CLARK LYLES ([id number]) 1935 M Date Time Provider Department 10/15/24 [facility] During your visit today, we recorded the following information about you: Radha Green, RN 10/15/2024 3:[address] [facility]- nurse- [facility]- reports he did patient eval today and will extend [facility] visits to 1 x week [...] Meds Comments as of 04/18/2021: Taking Saw [employer]. Problem List As Of Date 10/15/2024 Noted Resolved BENIGN HYPERTENSION [I10] 01/08/2006 Anxiety state [F41.1] 01/05/2009 GERD (gastroesophageal reflux disease) [K21.9] 01/10/2011 BPH (benign prostatic hyperplasia) [N40.0] 03/17/2013 PAD (peripheral artery disease) ([facility]) [I73.9] 02/28/2014 Hyperlipidemia LDL goal <100 [E78.5] 03/28/2016 Hyperbilirubinemia [E80.6] 05/10/2016 Parkinson's disease (HCC) [G20.A1] 07/11/2017 Angina pectoris (HCC) [I20.9] 08/25/2019 Restless legs syndrome [G25.81] 01/27/2020 Iron deficiency anemia due to chronic blood los*01/27/2020 Coronary artery disease involving wrangell rabago*12/22/2020 S/P primary angioplasty with coronary stent [Z9*12/22/2020 Fall from standing [W19.XXXA] 09/20/2021 Encounter for support and coordination of trans*08/11/2023 Acute respiratory failure with hypoxia (HCC) [J*09/25/2023 Encounter Status:Closed by Radha GREEN on 10/30/24 [facility] 10-03-2024 [facility]ET[facility] Telephone (COUMWS) CLARK LYLES ([id number]) 1935 M Date Time Provider Department 10/03/24 BRIGITTE SEGAL During your visit today, we recorded the following information about you: Mary Balderas, RN 10/03/2024 2:54 PM Signed Jamie with [facility] is calling due to he saw [...] needs called back with information. Brigitte Segal APRN.[facility] 10/03/2024 2:59 PM Signed Yes. Please increase O2 to 4l. Thank you for the recert. Shirley Rivera MA 10/03/2024 3:56 PM Signed Detailed message left on secure line for Jamie [facility] Shirley Rivera MA October 03, 2024 [...] Meds Comments as of 04/18/2021: Taking Saw [place]. Problem List As Of Date 10/03/2024 Noted [...] chronic blood los*01/27/2020 Coronary artery disease involving wrangell rabago*12/22/2020 S/P primary angioplasty with coronary stent [Z9*12/22/2020 Fall from standing [W19.XXXA] 09/20/2021 Encounter for support and coordination of trans*08/11/2023 Acute respiratory failure with hypoxia (HCC) [J*09/25/2023 Encounter Status:Closed by SHIRLEY RIVERA on 10/03/24 [facility] CNOVon 09-19-2024 CNOV Office Visit (FAMPWS ) CLARK LYLES ([id number]) 1935 M Date Time Provider Department 09/19/24 2:40 PM [facility] During your visit today, we recorded the following information about you: Temperature Pulse Blood pressure Weight 98.7 degrees 80/minute 128/62 72.6 kg Brigitte Segal APRN.[employer] 09/19/2024 3:25 PM Signed This is a [...] lipoma performed by Dr. Robe Mackenzie at [facility] REVSC OPN/PRQ FEM/POP W/STNT/ANGIOP SM [...] 5. [place] (more content not included)... Normal [facility] Mikey 09-19-2024 [facility] Telephone ([facility]) CLARK LYLES ([id number]) 1935 M Date Time Provider Department 09/19/24 [facility] During your visit today, we recorded the following information about you: Whit Sheridan RN 09/19/2024 2:23 PM Signed Rohan calling with [facility] Physical Therapy with plan of care for patient. Pt will be seen 1x per week for 4 weeks for functional mobility training. No call back needed if provider agreeable. ZACKARY Vines Jacqueline A, PACKING MACHINE PILOT CAN ROUTER.[employer] 09/19/2024 3:33 PM Signed Sounds good. Agree. [...] Meds Comments as of 04/18/2021: Taking Saw [place]. Problem List As Of Date 09/19/2024 Noted [...] chronic blood los*01/27/2020 Coronary artery disease involving wrangell rabago*12/22/2020 S/P primary angioplasty with coronary stent [Z9*12/22/2020 Fall from standing [W19.XXXA] 09/20/2021 Encounter for support and coordination of trans*08/11/2023 Acute respiratory failure with hypoxia (HCC) [J*09/25/2023 Encounter Status:Closed by BRIGITTE SEGAL [facility]19/24 [facility]EDAP[facility] CLARK LYLES ([id number]) 1935 M Date Time Provider Department 09/17/24 BR[employer]ITTE SEGAL During your visit today, we recorded the following information about you: Tracy Cedillo, RN 09/17/2024 12:57 PM Signed Hellen calling from [facility] to report plan of care for patient and custodial will visit patient 1 time a week for 1 week and 2 times a week for 2 weeks. Nursing Home will work with patient on wound care (patient has skin tear to right elbow) and management of O2 levels. Hellen had no orders for wound care. Hellen cleaned wound and put on Vaseline gauze and band aid. Hellen also notes that patient is on Oxygen and thought that he was only going to be on oxygen for a week. Patient does not see barrel driller for a month. Hellen did not know if provider wanted to address Oxygen use. Patient is scheduled to see PCP 09/19/2024. No call back needed unless there are questions. ZACKARY Tristan Jacqueline A, SHUKRI.[employer] COVER TREATER 09/18/2024 8:09 AM Signed Patient will need to stay on oxygen until he follows up with pulmonary. I have not seen him since February 2024 therefore I am not really able to shed any light on his oxygen use. Not common to use oxygen for only a week. Tracy Cedillo RN 09/18/2024 9:53 AM Signed Haley from [facility] calls and reports that granddaughter had checked [...] provider tomorrow 09/19/2024. Please Contact Haley back [phone]. ZACKARY Tristan Jacqueline A, SHUKRI.[employer] 09/18/2024 10:41 AM Signed Absolutely keep at [...] Hives Date Reviewed: 03/27/2024 Reviewed by: Brigitte Segal, SHUKRI.[employer] COVER TREATER - Fully Assessed Reason for Visit: Nursing Home Plan of Care [Other] Prescriptions as of [...] Meds Comments as of 04/18/2021: Taking Saw [place]. Problem List As Of Date 09/17/2024 Noted [...] chronic blood los*01/27/2020 Coronary artery disease involving wrangell rabago*12/22/2020 S/P primary angioplasty with coronary stent [Z9*12/22/2020 Fall from standing [W19.XXXA] 09/20/2021 Encounter for support and coordination of trans*08/11/2023 Acute respiratory failure with hypoxia (HCC) [J*09/25/2023 Encounter Status:Closed by TRACY CEDILLO on 09/22/24 [facility] ([id number]) 1935 M Date Time Provider Department 09/15/24 BR[employer]ITTE SEGAL During your visit today, we recorded the following information about you: Tracy Cedillo RN 09/15/2024 3:32 PM Signed Rochelle from [facility] calls and states that patient is being discharged from [facility] PCU on 09/05/2024 with the diagnosis of hypoxia and acute respiratory failure. Rochelle asking if provider willing to follow patient with orders for custodial, physical therapy, occupational therapy and social work. If agreeable please give Rochelle a call back . Thank you, ZACKARY Tristan Jacqueline A, APRN.[facility] 09/15/2024 4:41 PM Signed Yes. Of course Brigitte Segal APRN.[facility] 09/15/2024 5:31 PM Signed Patient is an [...] Signed Detailed message left for Rochelle at [facility] with verbal agreement of plan. Shirley Rivera MA September 16, 2024 9:12 AM Allergies As of Date: 09/15/2024 Noted Allergy Reaction LISINOPRIL 12/28/2009 3 - Cough SULFA (SULFONAMIDE ANTIBIOTICS) 03/09/2006 4 - Hives Date Reviewed: 03/27/2024 Reviewed by: Brigitte Segal APRN.[employer] - Fully Assessed Reason for Visit: Home [...] Meds Comments as of 04/18/2021: Taking Saw [place]. Problem List As Of Date 09/15/2024 Noted Resolved BENIGN HYPERTENSION [I10] 01/08/2006 Anxiety state [F41.1] 01/05/2009 GERD (gastroesophageal reflux disease) [K21.9] 01/10/2011 BPH (benign prostatic hyperplasia) [N40.0] 03/17/2013 PAD (peripheral artery disease) ([facility]) [I73.9] 02/28/2014 Hyperlipidemia LDL goal <100 [E78.5] 03/28/2016 Hyperbilirubinemia [E80.6] 05/10/2016 Parkinson's disease (HCC) [G20.A1] 07/11/2017 Angina pectoris (HCC) [I20.9] 08/25/2019 Restless legs syndrome [G25.81] 01/27/2020 Iron deficiency anemia due to chronic blood los*01/27/2020 Coronary artery disease involving wrangell rabago*12/22/2020 S/P primary angioplasty with coronary stent [Z9* (more content not included)... Normal [facility] Discharge Instructionon 08-30 Discharge Instruction [facility] Medical Records Department [address] [place] [address] Instructions for Home/Discharge Instructions 09/15/24905 MR#: [id number] Acct: [id number] Name: CLARK LLYES Rep #: [id number] : 1935 88 From: John Soliz MD PCP: Brigitte Segal, VOICE INTERCEPT TECHNICIAN Status:ADM IN Discharge Instructions Diet Discharge Diet: [...] 0 0RF Referrals / Follow Up: Brigitte Segal CNS [Primary Care Provider] - Radha Durbin PA [Non-Staff] - Steven Mitchell DO [Med Staff - Active Staff] - Within 1 Month Disposition Disposition (needs filled in before D/C Order can be placed): Home, Self Care 09/15/24 1343 John Soliz MD CC: MARIANA Segal; Dr. Jerrell Faith MD; Dr. Lester Perdomo DO Signed Normal [facility] Serum or plasma trough vanco mycin levelOrdered By: Jerrell Monterroso on 09-15-2024 Vancomycin trough [Mass/Vol] 16.5 ug/mL High 5.0-15.0 [facility] Comment on above: VANCOMYCIN STANDARED DRUG THERAPY TROUGH LEVEL: 5.0 - 15.0 mg/L VANCOMYCIN HIGH INTENSITY THERAPY TROUGH LEVEL: 15.0 - 20.0 mg/L High Intensity therapy recommended for serious lifethreatening infections include:- Nqlrufrhol-Dfcjdaiyhuma-Xwecdgiup (Ventilator/Healtcare Associated)-Sepsis PLEASE CONTACT PHARMACY SERVICES (#[id number]) FOR INTERPRETATIONOF RESULTS. Vancomycin, Trough Levelon 0 09-15-2024 VANCO, TROUGH 16.5 ug/mL High 5.0-15.0 [facility] Comment on above: Order Comment: Comme nts: Trough to be drawn 30 mins prior to scheduled [id number] Result Comment: VANC OMYCIN STANDARED DRUG THERAPY TROUGH LEVEL: 5.0 - 15.0 mg/L VANCOMYCIN HIGH INTENSITY THERAPY TROUGH LEVEL: 15.0 - 20.0 mg/L High Intensity therapy recommended for serious life threatening infections include: - Meningitis -Endocarditis -Pneumonia (Ventilator/Healtcare Associated) -Sepsis PLEASE CONTACT PHARMACY SERVICES (#[id number]) FOR INTERPRETATION OF RESULTS. Performed By: #### L 100.0100, L500.2500 #### [facility] [address] [place], [address] Absolute lymphocyte countOrd ered By: Lester Perdomo on 09-14-2024 Lymphocytes Auto (Unsp spec) [#/Vol] 1.09 10*3/uL 0.83-4.51 [facility] Absolute neutrophil countOrd ered By: Lester Perdomo on 09-14-2024 Neutrophils (Bld) [#/Vol] 12.0 10*3/uL High 2.0-7.7 [facility] Automated lymphocyte count a s percentage of total leukocytesOrdered By: Lester Perdomo on 09-14-2024 Lymphocytes/100 WBC Auto (Unsp spec) 7.3 % Low 19-41 [facility] Basic Metabolic Profile (BMP )on 09-14-2024 BUN/CRE 44.2 RATIO High 10-20 [facility] Comment on above: Performed By: #### L 100.0100, L500.2500 #### [facility] [address] [place], [address] CA,Total 8.6 mg/dL Normal 8.5-10.1 [facility] Comment on above: Performed By: #### L 100.0100, L500.2500 #### [facility] [address] [place], [address] Chloride [Moles/Vol] 106 mmol/L Normal 98-107 [facility] Comment on above: Performed By: #### L 100.0100, L500.2500 #### [facility] [address] [place], [address] CO2 [Moles/Vol] 27.0 mmol/L Normal 21.0-32.0 [facility] Comment on above: Performed By: #### L 100.0100, L500.2500 #### [facility] [address] [place], [address] Creatinine [Mass/Vol] 0.84 mg/dL Normal 0.70-1.30 [facility] Comment on above: Result Comment: The validity of the calculated GFR GFRAA in patients over 70 years has not been determined. Clinical correlation is essential. Performed By: #### L 100.0100, L500.2500 #### [facility] [address] [place], [address] ECRCL 63.04 ml/min Normal [facility] Comment on above: Performed By: #### L 100.0100, L500.2500 #### [facility] [address] [place], [address] EST GFR - AA 112 mL/min Normal >60 [facility] Comment on above: Result Comment: Afri can [place] GFR Calc Performed By: #### L 100.0100, L500.2500 #### [facility] [address] [place], [address] GAP 6 Normal 5-15 [facility] Comment on above: Performed By: #### L 100.0100, L500.2500 #### [facility] [address] [place], [address] GFR/1.73 sq M.predicted among non-blacks MDRD (S/P/Bld) [Vol rate/Area] 92 mL/min/{1.73_m2} Normal >60 [facility] Comment on above: Result Comment: Non- GFR Calc Performed By: #### L 100.0100, L500.2500 #### [facility] [address] [place], [address] Glucose [Mass/Vol] 156 mg/dL High 74-106 [facility] Comment on above: Result Comment: Fast ing Glucose result greater than or equal to 126 mg/dL suggests DIABETES MELLITUS per A.D.A. criteria. Performed By: #### L 100.0100, L500.2500 #### [facility] [address] [place], [address] Potassium [Moles/Vol] 3.4 mmol/L Low 3.5-5.1 [facility] Comment on above: Performed By: #### L 100.0100, L500.2500 #### [facility] [address], [address] Sodium [Moles/Vol] 139 mmol/L Normal 136-145 [facility] Comment on above: Performed By: #### L 100.0100, L500.2500 #### [facility] [address] [place], [address] Urea nitrogen [Mass/Vol] 37 mg/dL High 7-18 [facility] Comment on above: Performed By: #### L 100.0100, L500.2500 #### [facility] [address] [place], [address] Basophil percentageOrdered B y: Lester Perdomo on 09-14-2024 Basophils/100 WBC (Bld) 0.1 % 0-1 [facility] Blood urea nitrogen (BUN)/cr eatinine ratioOrdered By: Lester Perdomo on 09-14-2024 Urea nitrogen/Creatinine [Mass ratio] 44.2 mg/mg High 10-20 [facility] CBC W/Diff, Automatedon - REACTIVE LYMPH 1+ Normal [facility] Comment on above: Performed By: #### L 100.0100, L500.2500 #### [facility] [address] [place], [address] Carbon dioxide measurementOr dered By: Lester Perdomo on 09-14-2024 CO2 [Moles/Vol] 27.0 mmol/L 21.0-32.0 [facility] Chloride measurementOrdered By: Lester Perdomo on 09-14-2024 Chloride [Moles/Vol] 106 mmol/L 98-107 [facility] Eosinophil percentageOrdered By: Lester Perdomo on 09-14-2024 Eosinophils/100 WBC (Bld) 0.3 % 0-5 [facility] Erythrocyte distribution wid th ratioOrdered By: Lester Perdomo on 09-14-2024 Erythrocyte distribution width (RBC) [Ratio] 16.1 % High 11.6-14.6 [facility] Erythrocyte distribution wid th standard deviationOrdered By: Lester Perdomo on 09-14-2024 Erythrocyte distribution width (RBC) [Ratio] 56.8 fl High 35.1-43.9 [facility] Glomerular filtration rate ( GFR) estimationOrdered By: Lester Perdomo on 09-14-2024 GFR/1.73 sq M.predicted among non-blacks MDRD (S/P/Bld) [Vol rate/Area] 92 mL/min/{1.73_m2} >60 [facility] Comment on above: Non- GFR Calc Glucose measurementOrdered B y: Lester Perdomo on 09-14-2024 Glucose [Mass/Vol] 156 mg/dL High 74-106 [facility] Comment on above: Fasting Glucose resu lt greater than or equal to 126 mg/dL suggests DIABETES MELLITUS per A.D.A. criteria. Hematocrit Auto (Bld) [Volum e fraction]Ordered By: Lester Perdomo on 09-14-2024 Hematocrit (Bld) [Volume fraction] 43.5 % 40-54 [facility] Hemoglobin measurementOrdere d By: Lester Perdomo on 09-14-2024 Hemoglobin (Bld) [Mass/Vol] 14.3 g/dL 13.0-16.5 [facility] Immature granulocytes/100 WB C Auto (Bld)Ordered By: Lester Perdomo on 09-14-2024 Immature granulocytes/100 WBC (Bld) 4.800 % High 0.0-0.9 [facility] Comment on above: IG% - Immature Granu locytes (promyelocytes, myelocytes and metamyelocytes) > 1% indicates that a LEFT SHIFT is Present. MCV (mean corpuscular volume ) determinationOrdered By: Lester Perdomo on 09-14-2024 MCV (RBC) [Entitic vol] 96.2 fL High 80-94 [facility] Mean corpuscular hemoglobin (MCH) determinationOrdered By: Lester Perdomo 09-14-2024 MCH (RBC) [Entitic mass] 31.6 pg 27.0-32.0 [facility] Mean corpuscular hemoglobin concentration (MCHC) determinationOrdered By: Lester Perdomo on 09-14-2024 MCHC (RBC) [Mass/Vol] 32.9 g/dL 32-36 [facility] Mean platelet volume determi nationOrdered By: Lester Perdomo on 09-14-2024 Platelet mean volume (Bld) [Entitic vol] 11.7 fL 6.2-12.0 [facility] Monocyte percentageOrdered B y: Lester Perdomo on 09-14-2024 Monocytes/100 WBC (Bld) 7.0 % 0-10 [facility] Neutrophil percentageOrdered By: Lester Perdomo on 09-14-2024 Neutrophils/100 WBC (Bld) 80.5 % High 47-70 [facility] Nucleated red blood cell per centageOrdered By: Lester Perdomo on 09-14-2024 Nucleated RBC/100 WBC (Bld) [Ratio] 0 % 0-5 [facility] Platelet countOrdered By: Geovany Perdomo on 09-14-2024 Platelets (Bld) [#/Vol] 152 10*3/uL 150-450 [facility] Potassium measurementOrdered By: Lester Perdomo on 09-14-2024 Potassium [Moles/Vol] 3.4 mmol/L Low 3.5-5.1 [facility] RBC Auto (Bld) [#/Vol]Ordere d By: Lester Perdomo on 09-14-2024 RBC (Bld) [#/Vol] 4.52 10*6/uL Low 4.6-6.[address] [facility] Serum anion gap measurementO rdered By: Lester Perdomo on 09-14-2024 Anion gap [Moles/Vol] 6 mmol/L 5-15 [facility] Serum or plasma calcium nichole urement (mass/volume)Ordered By: Lester Perdomo on 09-14-2024 Calcium [Mass/Vol] 8.6 mg/dL 8.5-10.1 [facility] Serum or plasma creatinine m easurement (mass/volume)Ordered By: Lester Perdomo on 09-14-2024 Creatinine [Mass/Vol] 0.84 mg/dL 0.70-1.30 [facility] Comment on above: The validity of the calculated GFR & GFRAA in patients over 70 years has not been determined. Clinical correlation is essential. Serum or plasma urea nitroge n measurement (mass/volume)Ordered By: Lester Perdomo on 09-14-2024 Urea nitrogen [Mass/Vol] 37 mg/dL High 7-18 [facility] Sodium levelOrdered By: Lester Perdomo on 09-14-2024 Sodium [Moles/Vol] 139 mmol/L 136-145 [facility] White blood cell (WBC) count Ordered By: Lester Perdomo on 09-14-2024 WBC (Bld) [#/Vol] 14.9 10*3/uL High 4.4-11.[address] [facility] Basic Metabolic Profile (BMP )on 09-13-2024 BUN/CRE 30.9 RATIO High 10-20 [facility] Comment on above: Performed By: #### L 100.0100, L500.2500 #### [facility] [address] [place], [address] CA,Total 8.6 mg/dL Normal 8.5-10.1 [facility] Comment on above: Performed By: #### L 100.0100, L500.2500 #### [facility] [address] [place], [address] Chloride [Moles/Vol] 103 mmol/L Normal 98-107 [facility] Comment on above: Performed By: #### L 100.0100, L500.2500 #### [facility] [address] [place], [address] CO2 [Moles/Vol] 33.0 mmol/L High 21.0-32.0 [facility] Comment on above: Performed By: #### L 100.0100, L500.2500 #### [facility] [address] [place], [address] Creatinine [Mass/Vol] 1.10 mg/dL Normal 0.70-1.30 [facility] Comment on above: Result Comment: The validity of the calculated GFR GFRAA in patients over 70 years has not been determined. Clinical correlation is essential. Performed By: #### L 100.0100, L500.2500 #### [facility] [address] [place], [address] ECRCL 49.57 ml/min Normal [facility] Comment on above: Performed By: #### L 100.0100, L500.2500 #### [facility] [address] [place], [address] EST GFR - AA 82 mL/min Normal >60 [facility] Comment on above: Result Comment: Afri can [place] GFR Calc Performed By: #### L 100.0100, L500.2500 #### [facility] [address] [place], [address] GAP 3 Low 5-15 [facility] Comment on above: Performed By: #### L 100.0100, L500.2500 #### [facility] [address] [place], [address] GFR/1.73 sq M.predicted among non-blacks MDRD (S/P/Bld) [Vol rate/Area] 67 mL/min/{1.73_m2} Normal >60 [facility] Comment on above: Result Comment: Non- GFR Calc Performed By: #### L 100.0100, L500.2500 #### [facility] [address] [place], [address] Glucose [Mass/Vol] 168 mg/dL High 74-106 [facility] Comment on above: Result Comment: Fast ing Glucose result greater than or equal to 126 mg/dL suggests DIABETES MELLITUS per A.D.A. criteria. Performed By: #### L 100.0100, L500.2500 #### [facility] [address] [place], [address] Potassium [Moles/Vol] 3.3 mmol/L Low 3.5-5.1 [facility] Comment on above: Performed By: #### L 100.0100, L500.2500 #### [facility] [address] [place], [address] Sodium [Moles/Vol] 139 mmol/L Normal 136-145 [facility] Comment on above: Performed By: #### L 100.0100, L500.2500 #### [facility] [address] [place], [address] Urea nitrogen [Mass/Vol] 34 mg/dL High 7-18 [facility] Comment on above: Performed By: #### L 100.0100, L500.2500 #### [facility] [address] [place], [address] CBC W/Diff, Automatedon 08-30 Absolute Lymph 0.43 X10 3/uL Low 0.83-4.51 [facility] Comment on above: Performed By: #### L 100.0100, L500.2500 #### [facility] [address] [place], [address] Absolute Neut 12.2 X10 3/uL High 2.0-7.7 [facility] Comment on above: Performed By: #### L 100.0100, L500.2500 #### [facility] [address] [place], [address] Basophils/100 WBC (Bld) 0.7 % Normal 0-1 [facility] Comment on above: Performed By: #### L 100.0100, L500.2500 #### [facility] [address] [place], [address] Eosinophils/100 WBC (Bld) 0.0 % Normal 0-5 [facility] Comment on above: Performed By: #### L 100.0100, L500.2500 #### [facility] [address] [place], [address] Erythrocyte distribution width (RBC) [Ratio] 15.8 % High 11.6-14.6 [facility] Comment on above: Performed By: #### L 100.0100, L500.2500 #### [facility] [address] [place], [address] Hematocrit (Bld) [Volume fraction] 45.7 % Normal 40-54 [facility] Comment on above: Performed By: #### L 100.0100, L500.2500 #### [facility] [address] [place], [address] Hemoglobin (Bld) [Mass/Vol] 15.5 g/dL Normal 13.0-16.5 [facility] Comment on above: Performed By: #### L 100.0100, L500.2500 #### [facility] [address] [place], [address] IG% 2.600 High 0.0-0.9 [facility] Comment on above: Result Comment: IG% - Immature Granulocytes (promyelocytes, myelocytes and metamyelocytes) > 1% indicates that a LEFT SHIFT is Present. Performed By: #### L 100.0100, L500.2500 #### [facility] [address] [place], [address] Lymphocytes/100 WBC (Bld) 3.2 % Low 19-41 [facility] Comment on above: Performed By: #### L 100.0100, L500.2500 #### [facility] [address] [place], [address] MCH (RBC) [Entitic mass] 32.0 pg Normal 27.0-32.0 [facility] Comment on above: Performed By: #### L 100.0100, L500.2500 #### [facility] [address] [place], [address] MCHC (RBC) [Mass/Vol] 33.9 g/dL Normal 32-36 [facility] Comment on above: Performed By: #### L 100.0100, L500.2500 #### [facility] [address] [place], [address] MCV (RBC) [Entitic vol] 94.4 fL High 80-94 [facility] Comment on above: Performed By: #### L 100.0100, L500.2500 #### [facility] [address] [place], [address] Monocytes/100 WBC (Bld) 3.8 % Normal 0-10 [facility] Comment on above: Performed By: #### L 100.0100, L500.2500 #### [facility] [address] [place], [address] Neutrophils/100 WBC (Bld) 89.7 % High 47-70 [facility] Comment on above: Performed By: #### L 100.0100, L500.2500 #### [facility] [address] [place], [address] Nucleated RBC (Bld) [#/Vol] 0 10*3/uL Normal 0-5 [facility] Comment on above: Performed By: #### L 100.0100, L500.2500 #### [facility] [address] [place], [address] Platelet mean volume (Bld) [Entitic vol] 11.4 fL Normal 6.2-12.0 [facility] Comment on above: Performed By: #### L 100.0100, L500.2500 #### [facility] [address] [place], [address] Platelets (Bld) [#/Vol] 162 10*3/uL Normal 150-450 [facility] Comment on above: Performed By: #### L 100.0100, L500.2500 #### [facility] [address] [place], [address] RBC (Bld) [#/Vol] 4.84 10*6/uL Normal 4.6-6.[address] [facility] Comment on above: Performed By: #### L 100.0100, L500.2500 #### [facility] [address] [place], [address] RDW SD 54.8 fl High 35.1-43.9 [facility] Comment on above: Performed By: #### L 100.0100, L500.2500 #### [facility] [address] [place], [address] WBC (Bld) [#/Vol] 13.5 10*3/uL High 4.4-11.[address] [facility] Comment on above: Performed By: #### L 100.0100, L500.2500 #### [facility] [address] [place], [address] Vancomycin, Trough Levelon 0 - VANCO, TROUGH 17.0 ug/mL High 5.0-15.0 [facility] Comment on above: Order Comment: Comme nts: DRAW 30 MIN PRIOR TO DOSE 0330 Result Comment: VANC OMYCIN STANDARED DRUG THERAPY TROUGH LEVEL: 5.0 - 15.0 mg/L VANCOMYCIN HIGH INTENSITY THERAPY TROUGH LEVEL: 15.0 - 20.0 mg/L High Intensity therapy recommended for serious life threatening infections include: - Meningitis -Endocarditis -Pneumonia (Ventilator/Healtcare Associated) -Sepsis PLEASE CONTACT PHARMACY SERVICES (#[phone]) FOR INTERPRETATION OF RESULTS. Performed By: #### L 501.8820 #### [facility] [address] [place], [address] Basic Metabolic Profile (BMP )on 09-12-2024 BUN/CRE 33.2 RATIO High 10-20 [facility] Comment on above: Performed By: #### L 100.0100, L500.2500 #### [facility] [address] [place], [address] CA,Total 8.5 mg/dL Normal 8.5-10.1 [facility] Comment on above: Performed By: #### L 100.0100, L500.2500 #### [facility] [address] [place], [address] Chloride [Moles/Vol] 105 mmol/L Normal 98-107 [facility] Comment on above: Performed By: #### L 100.0100, L500.2500 #### [facility] [address] [place], [address] CO2 [Moles/Vol] 28.0 mmol/L Normal 21.0-32.0 [facility] Comment on above: Performed By: #### L 100.0100, L500.2500 #### [facility] [address] [place], [address] Creatinine [Mass/Vol] 0.96 mg/dL Normal 0.70-1.30 [facility] Comment on above: Result Comment: The validity of the calculated GFR GFRAA in patients over 70 years has not been determined. Clinical correlation is essential. Performed By: #### L 100.0100, L500.2500 #### [facility] [address] [place], [address] ECRCL 56.80 ml/min Normal [facility] Comment on above: Performed By: #### L 100.0100, L500.2500 #### [facility] [address] [place], [address] EST GFR - AA 95 mL/min Normal >60 [facility] Comment on above: Result Comment: Afri can [place] GFR Calc Performed By: #### L 100.0100, L500.2500 #### [facility] [address] [place], [address] GAP 7 Normal 5-15 [facility] Comment on above: Performed By: #### L 100.0100, L500.2500 #### [facility] [address] [place], [address] GFR/1.73 sq M.predicted among non-blacks MDRD (S/P/Bld) [Vol rate/Area] 78 mL/min/{1.73_m2} Normal >60 [facility] Comment on above: Result Comment: Non- GFR Calc Performed By: #### L 100.0100, L500.2500 #### [facility] [address] [place], [address] Glucose [Mass/Vol] 156 mg/dL High 74-106 [facility] Comment on above: Result Comment: Fast ing Glucose result greater than or equal to 126 mg/dL suggests DIABETES MELLITUS per A.D.A. criteria. Performed By: #### L 100.0100, L500.2500 #### [facility] [address] [place], [address] Potassium [Moles/Vol] 3.4 mmol/L Low 3.5-5.1 [facility] Comment on above: Performed By: #### L 100.0100, L500.2500 #### [facility] [address] [place], [address] Sodium [Moles/Vol] 140 mmol/L Normal 136-145 [facility] Comment on above: Performed By: #### L 100.0100, L500.2500 #### [facility] [address] [place], [address] Urea nitrogen [Mass/Vol] 32 mg/dL High 7-18 [facility] Comment on above: Performed By: #### L 100.0100, L500.2500 #### [facility] [address] [place], [address] CBC W/Diff, Automatedon 08-30 Absolute Lymph 0.46 X10 3/uL Low 0.83-4.51 [facility] Comment on above: Performed By: #### L 100.0100, L500.2500 #### [facility] [address] [place], [address] Absolute Neut 11.3 X10 3/uL High 2.0-7.7 [facility] Comment on above: Performed By: #### L 100.0100, L500.2500 #### [facility] [address] [place], [address] Basophils/100 WBC (Bld) 0.2 % Normal 0-1 [facility] Comment on above: Performed By: #### L 100.0100, L500.2500 #### [facility] [address] [place], [address] Eosinophils/100 WBC (Bld) 0.0 % Normal 0-5 [facility] Comment on above: Performed By: #### L 100.0100, L500.2500 #### [facility] [address] [place], [address] Erythrocyte distribution width (RBC) [Ratio] 15.9 % High 11.6-14.6 [facility] Comment on above: Performed By: #### L 100.0100, L500.2500 #### [facility] [address] [place], [address] Hematocrit (Bld) [Volume fraction] 44.7 % Normal 40-54 [facility] Comment on above: Performed By: #### L 100.0100, L500.2500 #### [facility] [address] [place], [address] Hemoglobin (Bld) [Mass/Vol] 14.9 g/dL Normal 13.0-16.5 [facility] Comment on above: Performed By: #### L 100.0100, L500.2500 #### [facility] [address] [place], [address] IG% 1.700 High 0.0-0.9 [facility] Comment on above: Result Comment: IG% - Immature Granulocytes (promyelocytes, myelocytes and metamyelocytes) > 1% indicates that a LEFT SHIFT is Present. Performed By: #### L 100.0100, L500.2500 #### [facility] [address] [place], [address] Lymphocytes/100 WBC (Bld) 3.6 % Low 19-41 [facility] Comment on above: Performed By: #### L 100.0100, L500.2500 #### [facility] [address] [place], [address] MCH (RBC) [Entitic mass] 31.6 pg Normal 27.0-32.0 [facility] Comment on above: Performed By: #### L 100.0100, L500.2500 #### [facility] [address] [place], [address] MCHC (RBC) [Mass/Vol] 33.3 g/dL Normal 32-36 [facility] Comment on above: Performed By: #### L 100.0100, L500.2500 #### [facility] [address] [place], [address] MCV (RBC) [Entitic vol] 94.7 fL High 80-94 [facility] Comment on above: Performed By: #### L 100.0100, L500.2500 #### [facility] [address] [place], [address] Monocytes/100 WBC (Bld) 4.7 % Normal 0-10 [facility] Comment on above: Performed By: #### L 100.0100, L500.2500 #### [facility] [address] [place], [address] Neutrophils/100 WBC (Bld) 89.8 % High 47-70 [facility] Comment on above: Performed By: #### L 100.0100, L500.2500 #### [facility] [address] [place], [address] Nucleated RBC (Bld) [#/Vol] 0 10*3/uL Normal 0-5 [facility] Comment on above: Performed By: #### L 100.0100, L500.2500 #### [facility] [address] [place], [address] Platelet mean volume (Bld) [Entitic vol] 11.5 fL Normal 6.2-12.0 [facility] Comment on above: Performed By: #### L 100.0100, L500.2500 #### [facility] [address] [place], [address] Platelets (Bld) [#/Vol] 165 10*3/uL Normal 150-450 [facility] Comment on above: Performed By: #### L 100.0100, L500.2500 #### [facility] [address] [place], [address] RBC (Bld) [#/Vol] 4.72 10*6/uL Normal 4.6-6.[address] [facility] Comment on above: Performed By: #### L 100.0100, L500.2500 #### [facility] [address] [place], [address] RDW SD 55.7 fl High 35.1-43.9 [facility] Comment on above: Performed By: #### L 100.0100, L500.2500 #### [facility] [address] [place], [address] WBC (Bld) [#/Vol] 12.6 10*3/uL High 4.4-11.[address] [facility] Comment on above: Performed By: #### L 100.0100, L500.2500 #### [facility] [address] [place], [address] Respiratory Cultureon 2024 RESPC Mixed normal respira tory argenis. No Haemophilus, Streptococcus pneumoniae, beta-hemolytic Streptococcus or Staphylococcus aureus isolated. Normal [facility] Comment on above: Performed By: #### M 100.2400, M100.2000 ####[facility] [address] [place], [address] CBC W/Diff, Automatedon 08-30 Absolute Lymph 0.43 X10 3/uL Low 0.83-4.51 [facility] Comment on above: Performed By: #### L 100.0100 #### [facility] [address] [place], [address] Absolute Neut 11.6 X10 3/uL High 2.0-7.7 [facility] Comment on above: Performed By: #### L 100.0100 #### [facility] [address] [place], [address] Basophils/100 WBC (Bld) 0.1 % Normal 0-1 [facility] Comment on above: Performed By: #### L 100.0100 #### [facility] [address] [place], [address] Eosinophils/100 WBC (Bld) 0.0 % Normal 0-5 [facility] Comment on above: Performed By: #### L 100.0100 #### [facility] [address] [place], [address] Erythrocyte distribution width (RBC) [Ratio] 16.1 % High 11.6-14.6 [facility] Comment on above: Performed By: #### L 100.0100 #### [facility] [address] [place], [address] Hematocrit (Bld) [Volume fraction] 44.9 % Normal 40-54 [facility] Comment on above: Performed By: #### L 100.0100 #### [facility] [address] [place], [address] Hemoglobin (Bld) [Mass/Vol] 14.8 g/dL Normal 13.0-16.5 [facility] Comment on above: Performed By: #### L 100.0100 #### [facility] [address] [place], [address] IG% 1.600 High 0.0-0.9 [facility] Comment on above: Result Comment: IG% - Immature Granulocytes (promyelocytes, myelocytes and metamyelocytes) > 1% indicates that a LEFT SHIFT is Present. Performed By: #### L 100.0100 #### [facility] [address] [place], [address] Lymphocytes/100 WBC (Bld) 3.4 % Low 19-41 [facility] Comment on above: Performed By: #### L 100.0100 #### [facility] [address] [place], [address] MCH (RBC) [Entitic mass] 31.5 pg Normal 27.0-32.0 [facility] Comment on above: Performed By: #### L 100.0100 #### [facility] [address] [place], [address] MCHC (RBC) [Mass/Vol] 33.0 g/dL Normal 32-36 [facility] Comment on above: Performed By: #### L 100.0100 #### [facility] [address] [place], [address] MCV (RBC) [Entitic vol] 95.5 fL High 80-94 [facility] Comment on above: Performed By: #### L 100.0100 #### [facility] [address] [place], [address] Monocytes/100 WBC (Bld) 4.1 % Normal 0-10 [facility] Comment on above: Performed By: #### L 100.0100 #### [facility] [address] [place], [address] Neutrophils/100 WBC (Bld) 90.8 % High 47-70 [facility] Comment on above: Performed By: #### L 100.0100 #### [facility] [address] [place], [address] Nucleated RBC (Bld) [#/Vol] 0 10*3/uL Normal 0-5 [facility] Comment on above: Performed By: #### L 100.0100 #### [facility] [address] [place], [address] Platelet mean volume (Bld) [Entitic vol] 11.3 fL Normal 6.2-12.0 [facility] Comment on above: Performed By: #### L 100.0100 #### [facility] [address] [place], [address] Platelets (Bld) [#/Vol] 156 10*3/uL Normal 150-450 [facility] Comment on above: Performed By: #### L 100.0100 #### [facility] [address] [place], [address] RBC (Bld) [#/Vol] 4.70 10*6/uL Normal 4.6-6.[address] [facility] Comment on above: Performed By: #### L 100.0100 #### [facility] [address] [place], [address] RDW SD 57.0 fl High 35.1-43.9 [facility] Comment on above: Performed By: #### L 100.0100 #### [facility] [address] [place], [address] WBC (Bld) [#/Vol] 12.8 10*3/uL High 4.4-11.[address] [facility] Comment on above: Performed By: #### L 100.0100 #### [facility] [address] [place], [address] Basic Metabolic Profile (BMP )on 09-10-2024 BUN/CRE 37.5 RATIO High 10-20 [facility] Comment on above: Performed By: #### L 100.0100, L500.2500 #### [facility] [address] [place], [address] CA,Total 8.9 mg/dL Normal 8.5-10.1 [facility] Comment on above: Performed By: #### L 100.0100, L500.2500 #### [facility] [address] [place], [address] Chloride [Moles/Vol] 111 mmol/L High 98-107 [facility] Comment on above: Performed By: #### L 100.0100, L500.2500 #### [facility] [address] [place], [address] CO2 [Moles/Vol] 27.0 mmol/L Normal 21.0-32.0 [facility] Comment on above: Performed By: #### L 100.0100, L500.2500 #### [facility] [address] [place], [address] Creatinine [Mass/Vol] 0.77 mg/dL Normal 0.70-1.30 [facility] Comment on above: Result Comment: The validity of the calculated GFR GFRAA in patients over 70 years has not been determined. Clinical correlation is essential. Performed By: #### L 100.0100, L500.2500 #### [facility] [address] [place], [address] ECRCL 67.03 ml/min Normal [facility] Comment on above: Performed By: #### L 100.0100, L500.2500 #### [facility] [address] [place], [address] EST GFR - AA 122 mL/min Normal >60 [facility] Comment on above: Result Comment: Afri can Northern Irish GFR Calc Performed By: #### L 100.0100, L500.2500 #### [facility] [address] [place], [address] GAP 5 Normal 5-15 [facility] Comment on above: Performed By: #### L 100.0100, L500.2500 #### [facility] [address] [place], [address] GFR/1.73 sq M.predicted among non-blacks MDRD (S/P/Bld) [Vol rate/Area] 101 mL/min/{1.73_m2} Normal >60 [facility] Comment on above: Result Comment: Non- GFR Calc Performed By: #### L 100.0100, L500.2500 #### [facility] [address] [place], [address] Glucose [Mass/Vol] 132 mg/dL High 74-106 [facility] Comment on above: Result Comment: Fast ing Glucose result greater than or equal to 126 mg/dL suggests DIABETES MELLITUS per A.D.A. criteria. Performed By: #### L 100.0100, L500.2500 #### [facility] [address] [place], [address] Potassium [Moles/Vol] 3.7 mmol/L Normal 3.5-5.1 [facility] Comment on above: Performed By: #### L 100.0100, L500.2500 #### [facility] [address] [place], [address] Sodium [Moles/Vol] 142 mmol/L Normal 136-145 [facility] Comment on above: Performed By: #### L 100.0100, L500.2500 #### [facility] [address] [place], [address] Urea nitrogen [Mass/Vol] 29 mg/dL High 7-18 [facility] Comment on above: Performed By: #### L 100.0100, L500.2500 #### [facility] [address] [place], [address] CBC W/Diff, Automatedon 08-30 Absolute Lymph 0.39 X10 3/uL Low 0.83-4.51 [facility] Comment on above: Performed By: #### L 100.0100, L500.2500 #### [facility] [address] [place], [address] Absolute Neut 10.7 X10 3/uL High 2.0-7.7 [facility] Comment on above: Performed By: #### L 100.0100, L500.2500 #### [facility] [address] [place], [address] Basophils/100 WBC (Bld) 0.2 % Normal 0-1 [facility] Comment on above: Performed By: #### L 100.0100, L500.2500 #### [facility] [address] [place], [address] Eosinophils/100 WBC (Bld) 0.0 % Normal 0-5 [facility] Comment on above: Performed By: #### L 100.0100, L500.2500 #### [facility] [address] [place], [address] Erythrocyte distribution width (RBC) [Ratio] 16.5 % High 11.6-14.6 [facility] Comment on above: Performed By: #### L 100.0100, L500.2500 #### [facility] [address] [place], [address] Hematocrit (Bld) [Volume fraction] 43.4 % Normal 40-54 [facility] Comment on above: Performed By: #### L 100.0100, L500.2500 #### [facility] [address] [place], [address] Hemoglobin (Bld) [Mass/Vol] 14.7 g/dL Normal 13.0-16.5 [facility] Comment on above: Performed By: #### L 100.0100, L500.2500 #### [facility] [address] [place], [address] IG% 1.200 High 0.0-0.9 [facility] Comment on above: Result Comment: IG% - Immature Granulocytes (promyelocytes, myelocytes and metamyelocytes) > 1% indicates that a LEFT SHIFT is Present. Performed By: #### L 100.0100, L500.2500 #### [facility] [address] [facility] [place], [address] Lymphocytes/100 WBC (Bld) 3.3 % Low 19-41 [facility] Comment on above: Performed By: #### L 100.0100, L500.2500 #### [facility] [address] [place], [address] MCH (RBC) [Entitic mass] 32.3 pg High 27.0-32.0 [facility] Comment on above: Performed By: #### L 100.0100, L500.2500 #### [facility] [address] [place], [address] MCHC (RBC) [Mass/Vol] 33.9 g/dL Normal 32-36 [facility] Comment on above: Performed By: #### L 100.0100, L500.2500 #### [facility] [address] [place], [address] MCV (RBC) [Entitic vol] 95.4 fL High 80-94 [facility] Comment on above: Performed By: #### L 100.0100, L500.2500 #### [facility] [address] [place], [address] Monocytes/100 WBC (Bld) 4.3 % Normal 0-10 [facility] Comment on above: Performed By: #### L 100.0100, L500.2500 #### [facility] [address] [place], [address] Neutrophils/100 WBC (Bld) 91.0 % High 47-70 [facility] Comment on above: Performed By: #### L 100.0100, L500.2500 #### [facility] [address] [place], [address] Nucleated RBC (Bld) [#/Vol] 0 10*3/uL Normal 0-5 [facility] Comment on above: Performed By: #### L 100.0100, L500.2500 #### [facility] [address] [place], [address] Platelet mean volume (Bld) [Entitic vol] 11.9 fL Normal 6.2-12.0 [facility] Comment on above: Performed By: #### L 100.0100, L500.2500 #### [facility] [address] [place], [address] Platelets (Bld) [#/Vol] 166 10*3/uL Normal 150-450 [facility] Comment on above: Performed By: #### L 100.0100, L500.2500 #### [facility] [address] [place], [address] RBC (Bld) [#/Vol] 4.55 10*6/uL Low 4.6-6.[address] [facility] Comment on above: Performed By: #### L 100.0100, L500.2500 #### [facility] [address] [place], [address] RDW SD 57.2 fl High 35.1-43.9 [facility] Comment on above: Performed By: #### L 100.0100, L500.2500 #### [facility] [address] [place], [address] WBC (Bld) [#/Vol] 11.8 10*3/uL High 4.4-11.[address] [facility] Comment on above: Performed By: #### L 100.0100, L500.2500 #### [facility] [address] [place], [address] Gram Stainon 09-10-2024 GS Acceptable Specimen? Yes (<25 Epithelial cells per/lpf) Gram Stain 2+ Gram positive cocci 2+ Gram positive rods 1+ Red Blood Cells 1+ White Blood Cells 1+ Epithelial cells Normal [facility] Comment on above: Performed By: #### M 100.2400, M100.2000 ####[facility] [address] [place], [address] Basic Metabolic Profile (BMP )on 09-09-2024 BUN/CRE 35.1 RATIO High 10-20 [facility] Comment on above: Performed By: #### L 100.0100, L500.2500 #### [facility] [address] [place], [address] CA,Total 8.4 mg/dL Low 8.5-10.1 [facility] Comment on above: Performed By: #### L 100.0100, L500.2500 #### [facility] [address] [place], [address] Chloride [Moles/Vol] 107 mmol/L Normal 98-107 [facility] Comment on above: Performed By: #### L 100.0100, L500.2500 #### [facility] [address] [place], [address] CO2 [Moles/Vol] 24.0 mmol/L Normal 21.0-32.0 [facility] Comment on above: Performed By: #### L 100.0100, L500.2500 #### [facility] [address] [place], [address] Creatinine [Mass/Vol] 0.94 mg/dL Normal 0.70-1.30 [facility] Comment on above: Result Comment: The validity of the calculated GFR GFRAA in patients over 70 years has not been determined. Clinical correlation is essential. Performed By: #### L 100.0100, L500.2500 #### [facility] [address] [place], [address] ECRCL 57.13 ml/min Normal [facility] Comment on above: Performed By: #### L 100.0100, L500.2500 #### [facility] [address] [place], [address] EST GFR - AA 98 mL/min Normal >60 [facility] Comment on above: Result Comment: Afri can [place] GFR Calc Performed By: #### L 100.0100, L500.2500 #### [facility] [address] [place], [address] GAP 8 Normal 5-15 [facility] Comment on above: Performed By: #### L 100.0100, L500.2500 #### [facility] [address] [place], [address] GFR/1.73 sq M.predicted among non-blacks MDRD (S/P/Bld) [Vol rate/Area] 81 mL/min/{1.73_m2} Normal >60 [facility] Comment on above: Result Comment: Non- GFR Calc Performed By: #### L 100.0100, L500.2500 #### [facility] [address] [place], [address] Glucose [Mass/Vol] 146 mg/dL High 74-106 [facility] Comment on above: Result Comment: Fast ing Glucose result greater than or equal to 126 mg/dL suggests DIABETES MELLITUS per A.D.A. criteria. Performed By: #### L 100.0100, L500.2500 #### [facility] [address] [place], [address] Potassium [Moles/Vol] 3.2 mmol/L Low 3.5-5.1 [facility] Comment on above: Performed By: #### L 100.0100, L500.2500 #### [facility] [address] [place], [address] Sodium [Moles/Vol] 139 mmol/L Normal 136-145 [facility] Comment on above: Performed By: #### L 100.0100, L500.2500 #### [facility] [address] [place], [address] Urea nitrogen [Mass/Vol] 33 mg/dL High 7-18 [facility] Comment on above: Performed By: #### L 100.0100, L500.2500 #### [facility] [address] [place], [address] CBC W/Diff, Automatedon 08-30 Absolute Lymph 0.57 X10 3/uL Low 0.83-4.51 [facility] Comment on above: Performed By: #### L 100.0100, L500.2500 #### [facility] [address] [place], [address] Absolute Neut 15.4 X10 3/uL High 2.0-7.7 [facility] Comment on above: Performed By: #### L 100.0100, L500.2500 #### [facility] [address] [place], [address] Basophils/100 WBC (Bld) 0.1 % Normal 0-1 [facility] Comment on above: Performed By: #### L 100.0100, L500.2500 #### [facility] [address] [place], [address] Eosinophils/100 WBC (Bld) 0.0 % Normal 0-5 [facility] Comment on above: Performed By: #### L 100.0100, L500.2500 #### [facility] [address] [place], [address] Erythrocyte distribution width (RBC) [Ratio] 16.6 % High 11.6-14.6 [facility] Comment on above: Performed By: #### L 100.0100, L500.2500 #### [facility] [address] [place], [address] Hematocrit (Bld) [Volume fraction] 43.3 % Normal 40-54 [facility] Comment on above: Performed By: #### L 100.0100, L500.2500 #### [facility] [address] [place], [address] Hemoglobin (Bld) [Mass/Vol] 14.4 g/dL Normal 13.0-16.5 [facility] Comment on above: Performed By: #### L 100.0100, L500.2500 #### [facility] [address] [place], [address] IG% 0.700 Normal 0.0-0.9 [facility] Comment on above: Result Comment: IG% - Immature Granulocytes (promyelocytes, myelocytes and metamyelocytes) > 1% indicates that a LEFT SHIFT is Present. Performed By: #### L 100.0100, L500.2500 #### [facility] [address] [place], [address] Lymphocytes/100 WBC (Bld) 3.3 % Low 19-41 [facility] Comment on above: Performed By: #### L 100.0100, L500.2500 #### [facility] [address] [place], [address] MCH (RBC) [Entitic mass] 31.4 pg Normal 27.0-32.0 [facility] Comment on above: Performed By: #### L 100.0100, L500.2500 #### [facility] [address] [place], [address] MCHC (RBC) [Mass/Vol] 33.3 g/dL Normal 32-36 [facility] Comment on above: Performed By: #### L 100.0100, L500.2500 #### [facility] [address] [place], [address] MCV (RBC) [Entitic vol] 94.5 fL High 80-94 [facility] Comment on above: Performed By: #### L 100.0100, L500.2500 #### [facility] [address] [place], [address] Monocytes/100 WBC (Bld) 7.2 % Normal 0-10 [facility] Comment on above: Performed By: #### L 100.0100, L500.2500 #### [facility] [address] [place], [address] Neutrophils/100 WBC (Bld) 88.7 % High 47-70 [facility] Comment on above: Performed By: #### L 100.0100, L500.2500 #### [facility] [address] [place], [address] Nucleated RBC (Bld) [#/Vol] 0 10*3/uL Normal 0-5 [facility] Comment on above: Performed By: #### L 100.0100, L500.2500 #### [facility] [address] [place], [address] Platelet mean volume (Bld) [Entitic vol] 11.4 fL Normal 6.2-12.0 [facility] Comment on above: Performed By: #### L 100.0100, L500.2500 #### [facility] [address] [place], [address] Platelets (Bld) [#/Vol] 178 10*3/uL Normal 150-450 [facility] Comment on above: Performed By: #### L 100.0100, L500.2500 #### [facility] [address] [place], [address] RBC (Bld) [#/Vol] 4.58 10*6/uL Low 4.6-6.[address] [facility] Comment on above: Performed By: #### L 100.0100, L500.2500 #### [facility] [address] [place], [address] RDW SD 56.1 fl High 35.1-43.9 [facility] Comment on above: Performed By: #### L 100.0100, L500.2500 #### [facility] [address] [place], [address] WBC (Bld) [#/Vol] 17.4 10*3/uL High 4.4-11.[address] [facility] Comment on above: Performed By: #### L 100.0100, L500.2500 #### [facility] [address] [place], [address] [facility] Telephone ([facility]) CLARK LYLES ([id number]) 1935 M Date Time Provider Department 09/09/24 BRIGITTE SEGAL [facility] During your visit today, we recorded the following information about you: Brigitte Segal APRN.JANET 09/09/2024 10:05 AM Signed Patient was admitted to [facility] on September 07 to 2024 for [...] Date Reviewed: 03/27/2024 Reviewed by: Brigitte Segal APRN.GOLF BALL COVER TREATER - Fully Assessed Prescriptions as of 09/09/2024 [...] Meds Comments as of 04/18/2021: Taking Saw [place]. Problem List As Of Date 09/09/2024 Noted Resolved BENIGN HYPERTENSION [I10] 01/08/2006 Anxiety state [F41.1] 01/05/2009 GERD (gastroesophageal reflux disease) [K21.9] 01/10/2011 BPH (benign prostatic hyperplasia) [N40.0] 03/17/2013 PAD (peripheral artery disease) ([facility]) [I73.9] 02/28/2014 Hyperlipidemia LDL goal <100 [E78.5] 03/28/2016 Hyperbilirubinemia [E80.6] 05/10/2016 Parkinson's disease (HCC) [G20.A1] 07/11/2017 Angina pectoris (HCC) [I20.9] 08/25/2019 Restless legs syndrome [G25.81] 01/27/2020 Iron deficiency anemia due to chronic blood los*01/27/2020 Coronary artery disease involving wrangell rabago*12/22/2020 S/P primary angioplasty with coronary stent [Z9*12/22/2020 Fall from standing [W19.XXXA] 09/20/2021 Encounter for support and coordination of trans*08/11/2023 Acute respiratory failure with hypoxia (HCC) [J*09/25/2023 Encounter Status:Closed by BRIGITTE SEGAL on 09/09/24 Normal [facility] Gram stainOrdered By: Lester stein on 09-09-2024 Microscopic observation Gram stain Nom (Unsp spec) [facility] Legionella Antigen Urineon 0 09-09-2024 LEGU URINE, CLEAN CATCH Legionella Antigen result interpretation: L pneumo Ag Ur Ql Negative Presumptive negative for Legionella pneumophila serogroup 1 antigen in urine, suggesting no recent or current infection. Legionella Ag, Urine Negative (See interpretation below) Normal [facility] Comment on above: Performed By: #### L 100.0100, L500.2500 #### [facility] [address] [facility] [place], [address] Microbial respiratory cultur eOrdered By: Lester Perdomo on 09-09-2024 Microorganism identified Cx Nom (Unsp spec) [facility] Strep pneumoniae Antig(UR,CS F)on 09-09-2024 STPAG URINE INTERPRETATION Strep pneumoniae Antig(UR,CSF) Negative Urine Presumptive negative for pneumococcal pneumonia, suggesting no current or recent pneumococcal infection. Infection due to S pneumoniae cannot be ruled out since the antigen present in the sample may be below the detection limit of the test. Strep pneumo Test Negative URINE (See interpretation below) Normal [facility] Comment on above: Performed By: #### L 100.0100, L500.2500 #### [facility] [address] [facility] [place], [address] Urine Legionella pneumophila antigen detectionOrdered By: Lester Perdomo on 09-09-2024 L. pneumophila Ag Ql (U) [facility] Abdomen Single Viewon 2024 Abdomen Single View [facility] [address] [place] [address] Abdomen Single View MR#: [id number] Acct: [id number] Name: CLARK LYLES Rep #: [id number] : 1935 M 88 [facility] Segal, VOICE INTERCEPT TECHNICIAN Status: ADM IN Study: Abdomen Single View Date of Exam: 09/08/24 Exam# [id number] Ordering Dr: Lester Perdomo DO PROCEDURE: ABDOMEN [...] right inferior pubic ramus bone. Reading [facility] CC: [facility] Brigitte Segal; Dr. Lester Perdomo DO Vice President Media Relations: Signed Normal [facility] Basic Metabolic Profile (BMP )on 09-08-2024 BUN/CRE 33.0 RATIO High 10-20 [facility] Comment on above: Performed By: #### L 500.2500, L501.5200, L100.0100, L501.2300 ####[facility] [address] [place], [address] CA,Total 8.6 mg/dL Normal 8.5-10.1 [facility] Comment on above: Performed By: #### L 500.2500, L501.5200, L100.0100, L501.2300 ####[facility] [address] [place], [address] Chloride [Moles/Vol] 106 mmol/L Normal 98-107 [facility] Comment on above: Performed By: #### L 500.2500, L501.5200, L100.0100, L501.2300 ####[facility] [address] [place], [address] CO2 [Moles/Vol] 22.0 mmol/L Normal 21.0-32.0 [facility] Comment on above: Performed By: #### L 500.2500, L501.5200, L100.0100, L501.2300 ####[facility] [address] [place], [address] Creatinine [Mass/Vol] 0.82 mg/dL Normal 0.70-1.30 [facility] Comment on above: Result Comment: The validity of the calculated GFR GFRAA in patients over 70 years has not been determined. Clinical correlation is essential. Performed By: #### L 500.2500, L501.5200, L100.0100, L501.2300 ####[facility] [address] [place], [address] ECRCL 66.59 ml/min Normal [facility] Comment on above: Performed By: #### L 500.2500, L501.5200, L100.0100, L501.2300 ####[facility] [address] [place], [address] EST GFR - AA 115 mL/min Normal >60 [facility] Comment on above: Result Comment: Afri can [place] GFR Calc Performed By: #### L 500.2500, L501.5200, L100.0100, L501.2300 ####[facility] [address] [place], [address] GAP 11 Normal 5-15 [facility] Comment on above: Performed By: #### L 500.2500, L501.5200, L100.0100, L501.2300 ####[facility] [address] [place], [address] GFR/1.73 sq M.predicted among non-blacks MDRD (S/P/Bld) [Vol rate/Area] 95 mL/min/{1.73_m2} Normal >60 [facility] Comment on above: Result Comment: Non- GFR Calc Performed By: #### L 500.2500, L501.5200, L100.0100, L501.2300 ####[facility] [address] [place], [address] Glucose [Mass/Vol] 150 mg/dL High 74-106 [facility] Comment on above: Result Comment: Fast ing Glucose result greater than or equal to 126 mg/dL suggests DIABETES MELLITUS per A.D.A. criteria. Performed By: #### L 500.2500, L501.5200, L100.0100, L501.2300 ####[facility] [address] [place], [address] Potassium [Moles/Vol] 3.2 mmol/L Low 3.5-5.1 [facility] Comment on above: Performed By: #### L 500.2500, L501.5200, L100.0100, L501.2300 ####[facility] [address] [place], [address] Sodium [Moles/Vol] 138 mmol/L Normal 136-145 [facility] Comment on above: Performed By: #### L 500.2500, L501.5200, L100.0100, L501.2300 ####[facility] [address] [place], [address] Urea nitrogen [Mass/Vol] 27 mg/dL High 7-18 [facility] Comment on above: Performed By: #### L 500.2500, L501.5200, L100.0100, L501.2300 ####[facility] [address] [place], [address] CBC W/Diff, Automatedon 02-1 0-2024 Absolute Lymph 0.32 X10 3/uL Low 0.83-4.51 [facility] Comment on above: Performed By: #### L 500.2500, L501.5200, L100.0100, L501.2300 #### [facility] [address] [place], [address] Absolute Neut 7.4 X10 3/uL Normal 2.0-7.7 [facility] Comment on above: Performed By: #### L 500.2500, L501.5200, L100.0100, L501.2300 #### [facility] [address] [place], [address] Basophils/100 WBC (Bld) 0.1 % Normal 0-1 [facility] Comment on above: Performed By: #### L 500.2500, L501.5200, L100.0100, L501.2300 #### [facility] [address] [place], [address] Eosinophils/100 WBC (Bld) 0.0 % Normal 0-5 [facility] Comment on above: Performed By: #### L 500.2500, L501.5200, L100.0100, L501.2300 #### [facility] [address] [place], [address] Erythrocyte distribution width (RBC) [Ratio] 16.0 % High 11.6-14.6 [facility] Comment on above: Performed By: #### L 500.2500, L501.5200, L100.0100, L501.2300 #### [facility] [address] [place], [address] Hematocrit (Bld) [Volume fraction] 42.9 % Normal 40-54 [facility] Comment on above: Performed By: #### L 500.2500, L501.5200, L100.0100, L501.2300 #### [facility] [address] [place], [address] Hemoglobin (Bld) [Mass/Vol] 15.4 g/dL Normal 13.0-16.5 [facility] Comment on above: Performed By: #### L 500.2500, L501.5200, L100.0100, L501.2300 #### [facility] [address] [place], [address] IG% 0.800 Normal 0.0-0.9 [facility] [facility] Comment on above: Result Comment: IG% - Immature Granulocytes (promyelocytes, myelocytes and metamyelocytes) > 1% indicates that a LEFT SHIFT is Present. Performed By: #### L 500.2500, L501.5200, L100.0100, L501.2300 #### [facility] [address] [place], [address] Lymphocytes/100 WBC (Bld) 4.1 % Low 19-41 [facility] Comment on above: Performed By: #### L 500.2500, L501.5200, L100.0100, L501.2300 #### [facility] [address] [place], [address] MCH (RBC) [Entitic mass] 33.1 pg High 27.0-32.0 [facility] Comment on above: Performed By: #### L 500.2500, L501.5200, L100.0100, L501.2300 #### [facility] [address] [place], [address] MCHC (RBC) [Mass/Vol] 35.9 g/dL Normal 32-36 [facility] Comment on above: Performed By: #### L 500.2500, L501.5200, L100.0100, L501.2300 #### [facility] [address] [place], [address] MCV (RBC) [Entitic vol] 92.3 fL Normal 80-94 [facility] Comment on above: Performed By: #### L 500.2500, L501.5200, L100.0100, L501.2300 #### [facility] [address] [place], [address] Monocytes/100 WBC (Bld) 2.0 % Normal 0-10 [facility] Comment on above: Performed By: #### L 500.2500, L501.5200, L100.0100, L501.2300 #### [facility] [address] [place], [address] Neutrophils/100 WBC (Bld) 93.0 % High 47-70 [facility] Comment on above: Performed By: #### L 500.2500, L501.5200, L100.0100, L501.2300 #### [facility] [address] [place], [address] Nucleated RBC (Bld) [#/Vol] 0 10*3/uL Normal 0-5 [facility] Comment on above: Performed By: #### L 500.2500, L501.5200, L100.0100, L501.2300 #### [facility] [address] [place], [address] Platelet mean volume (Bld) [Entitic vol] 11.6 fL Normal 6.2-12.0 [facility] Comment on above: Performed By: #### L 500.2500, L501.5200, L100.0100, L501.2300 #### [facility] [address] [place], [address] Platelets (Bld) [#/Vol] 183 10*3/uL Normal 150-450 [facility] Comment on above: Performed By: #### L 500.2500, L501.5200, L100.0100, L501.2300 #### [facility] [address] [place], [address] RBC (Bld) [#/Vol] 4.65 10*6/uL Normal 4.6-6.[address] [facility] Comment on above: Performed By: #### L 500.2500, L501.5200, L100.0100, L501.2300 #### [facility] [address] [place], [address] RDW SD 52.6 fl High 35.1-43.9 [facility] Comment on above: Performed By: #### L 500.2500, L501.5200, L100.0100, L501.2300 #### [facility] [address] [place], [address] WBC (Bld) [#/Vol] 7.9 10*3/uL Normal 4.4-11.0 [facility] Comment on above: Performed By: #### L 500.2500, L501.5200, L100.0100, L501.2300 #### [facility] [address] [place], [address] CTA Chest W/WO Contraston CTA Chest W/WO Contrast [facility] Imaging Services [address] [place] [address] CTA Chest W/WO Contrast MR#: [id number] Acct: [id number] Name: CLARK LYLES Rep #: [id number] : 1935 M 88 From: Jose araujo MD PCP: Brigitte Segal, VOICE INTERCEPT TECHNICIAN Status: ADM IN Study: CTA Chest W/WO Contrast Date of Exam: 09/08/24 Exam# [id number] Ordering Dr: Lester Perdomo DO PROCEDURE: CTA [...] use of iterative reconstruction technique). Reading Location: [place] [address] CC: VOICE INTERCEPT TECHNICIAN Brigitte Segal; Dr. Lester Perdomo DO Vice President Media Relations: Signed Normal [facility] Echo, Limited Studyon 2024 Echo, Limited Study [facility] Services [address] [place] [address] Echo, Limited Study 09/08/24 1446 MR#: [id number] Acct: [id number] Name: CLARK LYLES Rep #: [id number] : 1935 88 From: Dejuan Brooks MD Attending Dr: Dr. Lester Perdomo DO Status: ADM IN Ordering Dr: Lester Perdomo DO Date: 09/08/24 Location: [facility] Sex: M C Admitted: 09/07/24 Reason For Study ECHO/Echo, Limited Study Interpretation Summary Normal LV size. Left ventricular systolic function is normal. The left ventricular ejection fraction is 55 %. Pulmonary artery systolic pressure is 86 mmHg. Severe pulmonary hypertension. Moderately severe (3+) tricuspid valve insufficiency. Ordering Physician: Lester Perdomo Referring Physician: BRIGITTE SEGAL Performed By: Cynthia Alonzo RCS 09/09/24 0834 Date Dejuan Brooks MD CC: MARIANA Segal; Dr. Lester Perdomo DO Date Dictated: 09/08/24 1446 Date Transcribed: 09/09/24 0834 Vice President Media Relations: Signed Normal [facility] Magnesiumon 09-08-2024 Magnesium [Mass/Vol] 1.8 mg/dL Normal 1.6-2.6 [facility] Comment on above: Performed By: #### L 500.2500, L501.5200, L100.0100, L501.2300 ####[facility] [address] [facility] [place], [address] Magnesium measurementOrdered By: Jerrell Faith on 09-08-2024 Magnesium [Mass/Vol] 1.8 mg/dL 1.6-2.6 [facility] Phosphoruson 09-08-2024 Phosphate [Mass/Vol] 3.9 mg/dL Normal 2.5-4.9 [facility] Comment on above: Performed By: #### L 500.2500, L501.5200, L100.0100, L501.2300 ####[facility] [address] [facility] [place], [address] 12 Lead EKGon 09-07-2024 12 Lead EKG [facility] Cardiovascular Services [address] [place] [address] 12 Lead EKG 09/07/24 1105 MR#: [id number] Acct: [id number] Name: CLARK LYLES Rep #: [id number] : 1935 88 From: Dejuan Brooks MD Attending Dr: Dr. Lester Perdomo DO Status: ADM IN Ordering Dr: Neo Tejeda DO Date: 09/07/24 Location: [facility] Sex: M C Admitted: 09/07/24 [...] Aberrant conduction Otherwise normal ECG Confirmed by DEJUAN BROOKS MD ([id number]), multimedia editor FARSHAD PANDYA ([id number]) on 09/08/2024 11:07:09 AM Referred By: Confirmed By: DEJUAN BROOKS MD 09/08/24 1107 Date Dejuan Brooks MD CC: MARIANA Segal; Dr. Lester Perdomo DO; Dr. Neo Tejeda DO Signed Normal [facility] Activated partial thrombopla stin time (aPTT) in platelet poor plasma by coagulation aOrdered By: Neo Tejeda on 09-07-2024 aPTT Coag (PPP) [Time] 26.5 s 24.1-36.2 [facility] Assessment of wrist artery p atency prior to arterial punctureOrdered By: Neo Tejeda on 09-07-2024 Arterial patency Wrist artery --pre arterial puncture Positive [facility] BNP (brain natriuretic pepti de measurement)Ordered By: Neo Tejeda on 09-07-2024 Natriuretic peptide B (Bld) [Mass/Vol] 221.1 pg/mL High 0-100 [facility] BNP,B-Type NATRIURETIC PEPTI Giovanni 09-07-2024 Natriuretic peptide B (Bld) [Mass/Vol] 221.1 pg/mL High 0-100 [facility] Comment on above: Performed By: #### L 503.6620 ####[facility] [address] [place], [place], [address] Basic Metabolic Profile (BMP )on 09-07-2024 BUN/CRE 19.2 RATIO Normal 10-20 [facility] Comment on above: Order Comment: 'TROP ' Serial specimen #1, #2 or #3: 1 Performed By: #### L 500.2500, L501.4020, L100.0100, L300.3900, L300.4310 ####[facility] [address] [place], [address] CA,Total 8.7 mg/dL Normal 8.5-10.1 [facility] Comment on above: Order Comment: 'TROP ' Serial specimen #1, #2 or #3: 1 Performed By: #### L 500.2500, L501.4020, L100.0100, L300.3900, L300.4310 ####[facility] [address] [place], [address] Chloride [Moles/Vol] 104 mmol/L Normal 98-107 [facility] Comment on above: Order Comment: 'TROP ' Serial specimen #1, #2 or #3: 1 Performed By: #### L 500.2500, L501.4020, L100.0100, L300.3900, L300.4310 ####[facility] [address] [place], [address] CO2 [Moles/Vol] 18.0 mmol/L Low 21.0-32.0 [facility] Comment on above: Order Comment: 'TROP ' Serial specimen #1, #2 or #3: 1 Performed By: #### L 500.2500, L501.4020, L100.0100, L300.3900, L300.4310 ####[facility] [address] [place], [address] Creatinine [Mass/Vol] 1.04 mg/dL Normal 0.70-1.30 [facility] Comment on above: Order Comment: 'TROP ' Serial specimen #1, #2 or #3: 1 Result Comment: The validity of the calculated GFR GFRAA in patients over 70 years has not been determined. Clinical correlation is essential. Performed By: #### L 500.2500, L501.4020, L100.0100, L300.3900, L300.4310 ####[facility] [address] [place], [address] ECRCL 49.04 ml/min Normal [facility] Comment on above: Order Comment: 'TROP ' Serial specimen #1, #2 or #3: 1 Performed By: #### L 500.2500, L501.4020, L100.0100, L300.3900, L300.4310 ####[facility] [address] [place], [address] EST GFR - AA 87 mL/min Normal >60 [facility] Comment on above: Order Comment: 'TROP ' Serial specimen #1, #2 or #3: 1 Result Comment: Afri can [place] GFR Calc Performed By: #### L 500.2500, L501.4020, L100.0100, L300.3900, L300.4310 ####[facility] [address] [place], [address] GAP 16 High 5-15 [facility] Comment on above: Order Comment: 'TROP ' Serial specimen #1, #2 or #3: 1 Performed By: #### L 500.2500, L501.4020, L100.0100, L300.3900, L300.4310 ####[facility] [address] [place], [address] GFR/1.73 sq M.predicted among non-blacks MDRD (S/P/Bld) [Vol rate/Area] 72 mL/min/{1.73_m2} Normal >60 [facility] Comment on above: Order Comment: 'TROP ' Serial specimen #1, #2 or #3: 1 Result Comment: Non- GFR Calc Performed By: #### L 500.2500, L501.4020, L100.0100, L300.3900, L300.4310 ####[facility] [address] [place], [address] Glucose [Mass/Vol] 77 mg/dL Normal 74-106 [facility] Comment on above: Order Comment: 'TROP ' Serial specimen #1, #2 or #3: 1 Performed By: #### L 500.2500, L501.4020, L100.0100, L300.3900, L300.4310 ####[facility] [address] [place], [address] Potassium [Moles/Vol] 3.3 mmol/L Low 3.5-5.1 [facility] Comment on above: Order Comment: 'TROP ' Serial specimen #1, #2 or #3: 1 Performed By: #### L 500.2500, L501.4020, L100.0100, L300.3900, L300.4310 ####[facility] [address] [place], [address] Sodium [Moles/Vol] 138 mmol/L Normal 136-145 [facility] Comment on above: Order Comment: 'TROP ' Serial specimen #1, #2 or #3: 1 Performed By: #### L 500.2500, L501.4020, L100.0100, L300.3900, L300.4310 ####[facility] [address] [place], [address] Urea nitrogen [Mass/Vol] 20 mg/dL High 7-18 [facility] Comment on above: Order Comment: 'TROP ' Serial specimen #1, #2 or #3: 1 Performed By: #### L 500.2500, L501.4020, L100.0100, L300.3900, L300.4310 ####[facility] [address] [place], [address] Bilirubin Test strip Ql (U)O rdered By: Neo Tejeda on 09-07-2024 Bilirubin Ql (U) Negative Negative [facility] Blood Gases by CPSon 025 MAGUI TEST Positive Normal [facility] Comment on above: Performed By: #### L 100.0100, L500.2500 #### [facility] [address] [place], [address] Base excess Calc (Bld) [Moles/Vol] -8 mmol/L Low -2 to +2 [facility] Comment on above: Performed By: #### L 100.0100, L500.2500 #### [facility] [address] [place], [address] Blood Gas Type ART [facility] Comment on above: Performed By: #### L 100.0100, L500.2500 #### [facility] [address] [place], [address] CO2 [Moles/Vol] 18 mmol/L [facility] Comment on above: Performed By: #### L 100.0100, L500.2500 #### [facility] [address] [place], [address] Comment AIRVO 60L [facility] Comment on above: Performed By: #### L 100.0100, L500.2500 #### [facility] [address] [place], [address] FI02 50.0 [facility] Comment on above: Performed By: #### L 100.0100, L500.2500 #### [facility] [address] [place], [address] HCO3 (Bld) [Moles/Vol] 17.0 mmol/L Low 22-26 [facility] Comment on above: Performed By: #### L 100.0100, L500.2500 #### [facility] [address] [place], [address] Mode Not entered [facility] Comment on above: Performed By: #### L 100.0100, L500.2500 #### [facility] [address] [place], [address] O2 Delivery Dev HFNC [facility] Comment on above: Performed By: #### L 100.0100, L500.2500 #### [facility] [address] [place], [address] pCO2 28.6 mmHg Low 35-45 [facility] Comment on above: Performed By: #### L 100.0100, L500.2500 #### [facility] [address] [place], [address] pH (Bld) 7.38 [pH] Normal 7.35-7.45 [facility] Comment on above: Performed By: #### L 100.0100, L500.2500 #### [facility] [address] [place], [address] PO2 102 mmHG High 75-100 [facility] Comment on above: Performed By: #### L 100.0100, L500.2500 #### [facility] [address] [place], [address] SITE R Radial Normal [facility] Comment on above: Performed By: #### L 100.0100, L500.2500 #### [facility] [address] [place], [address] SO2 98 Normal 95-99 [facility] Comment on above: Performed By: #### L 100.0100, L500.2500 #### [facility] [address] [place], [address] Blood base excess determinat ionOrdered By: Neo Tejeda on 09-07-2024 Base excess Calc (BldV) [Moles/Vol] -8 mmol/L Low -2-2 [facility] Blood bicarbonate measuremen tOrdered By: Neo Tejeda on 09-07-2024 HCO3 (Bld) [Moles/Vol] 17.0 mmol/L Low 22-26 [facility] CBC W/Diff, Automatedon Absolute Lymph 0.74 X10 3/uL Low 0.83-4.51 [facility] Comment on above: Performed By: #### L 500.2500, L501.4020, L100.0100, L300.3900, L300.4310 ####[facility] [address] [place], [address] Absolute Neut 10.8 X10 3/uL High 2.0-7.7 [facility] Comment on above: Performed By: #### L 500.2500, L501.4020, L100.0100, L300.3900, L300.4310 ####[facility] [address] [place], [address] Basophils/100 WBC (Bld) 0.3 % Normal 0-1 [facility] Comment on above: Performed By: #### L 500.2500, L501.4020, L100.0100, L300.3900, L300.4310 ####[facility] [address] [place], [address] Eosinophils/100 WBC (Bld) 0.1 % Normal 0-5 [facility] Comment on above: Performed By: #### L 500.2500, L501.4020, L100.0100, L300.3900, L300.4310 ####[facility] [address] [place], [address] Erythrocyte distribution width (RBC) [Ratio] 16.4 % High 11.6-14.6 [facility] Comment on above: Performed By: #### L 500.2500, L501.4020, L100.0100, L300.3900, L300.4310 ####[facility] [address] [place], [address] Hematocrit (Bld) [Volume fraction] 46.6 % Normal 40-54 [facility] Comment on above: Performed By: #### L 500.2500, L501.4020, L100.0100, L300.3900, L300.4310 ####[facility] [address] [place], [address] Hemoglobin (Bld) [Mass/Vol] 15.8 g/dL Normal 13.0-16.5 [facility] Comment on above: Performed By: #### L 500.2500, L501.4020, L100.0100, L300.3900, L300.4310 ####[facility] [address] [place], [address] IG% 1.200 High 0.0-0.9 [facility] Comment on above: Result Comment: IG% - Immature Granulocytes (promyelocytes, myelocytes and metamyelocytes) > 1% indicates that a LEFT SHIFT is Present. Performed By: #### L 500.2500, L501.4020, L100.0100, L300.3900, L300.4310 ####[facility] [address] [place], [address] Lymphocytes/100 WBC (Bld) 5.8 % Low 19-41 [facility] Comment on above: Performed By: #### L 500.2500, L501.4020, L100.0100, L300.3900, L300.4310 ####[facility] [address] [place], [address] MCH (RBC) [Entitic mass] 31.5 pg Normal 27.0-32.0 [facility] Comment on above: Performed By: #### L 500.2500, L501.4020, L100.0100, L300.3900, L300.4310 ####[facility] [address] [place], [address] MCHC (RBC) [Mass/Vol] 33.9 g/dL Normal 32-36 [facility] Comment on above: Performed By: #### L 500.2500, L501.4020, L100.0100, L300.3900, L300.4310 ####[facility] [address] [place], [address] MCV (RBC) [Entitic vol] 93.0 fL Normal 80-94 [facility] Comment on above: Performed By: #### L 500.2500, L501.4020, L100.0100, L300.3900, L300.4310 ####[facility] [address] [place], [address] Monocytes/100 WBC (Bld) 7.4 % Normal 0-10 [facility] Comment on above: Performed By: #### L 500.2500, L501.4020, L100.0100, L300.3900, L300.4310 ####[facility] [address] [place], [address] Neutrophils/100 WBC (Bld) 85.2 % High 47-70 [facility] Comment on above: Performed By: #### L 500.2500, L501.4020, L100.0100, L300.3900, L300.4310 ####[facility] [address] [place], [address] Nucleated RBC (Bld) [#/Vol] 0 10*3/uL Normal 0-5 [facility] Comment on above: Performed By: #### L 500.2500, L501.4020, L100.0100, L300.3900, L300.4310 ####[facility] [address] [place], [address] Platelet mean volume (Bld) [Entitic vol] 11.0 fL Normal 6.2-12.0 [facility] Comment on above: Performed By: #### L 500.2500, L501.4020, L100.0100, L300.3900, L300.4310 ####[facility] [address] [place], [address] Platelets (Bld) [#/Vol] 195 10*3/uL Normal 150-450 [facility] Comment on above: Performed By: #### L 500.2500, L501.4020, L100.0100, L300.3900, L300.4310 ####[facility] [address] [place], [address] RBC (Bld) [#/Vol] 5.01 10*6/uL Normal 4.6-6.[address] [facility] Comment on above: Performed By: #### L 500.2500, L501.4020, L100.0100, L300.3900, L300.4310 ####[facility] [address] [place], [address] RDW SD 53.0 fl High 35.1-43.9 [facility] Comment on above: Performed By: #### L 500.2500, L501.4020, L100.0100, L300.3900, L300.4310 ####[facility] [address] [place], [address] WBC (Bld) [#/Vol] 12.7 10*3/uL High 4.4-11.[address] [facility] Comment on above: Performed By: #### L 500.2500, L501.4020, L100.0100, L300.3900, L300.4310 ####[facility] [address] [place], [address] CTA Head AND Neck W/ Contras ton 09-07-2024 CTA Head AND Neck W/ Contrast [facility] Imaging Services [address] [place] [address] CTA Head AND Neck W/ Contrast MR#: [id number] Acct: [id number] Name: CLARK LYLES Rep #: [id number] : 1935 M 88 From: Axel Marie MD PCP: Brigitte Segal, VOICE INTERCEPT TECHNICIAN Status: REG ER Study: CTA Head AND Neck W/ Contrast Date of Exam: Exam# [id number] Ordering Dr: Neo Tejeda DO PROCEDURE: CTA [...] use of iterative reconstruction technique). Reading Location: [facility] CC: MARIANA Segal; Dr. Neo Tejeda DO Vice President Media Relations: Signed Normal [facility] Calcium oxalate crystals det ection in urine sediment by light microscopyOrdered By: Neo Tejeda on 09-07-2024 Calcium oxalate crystals LM Ql (Urine sed) 1+ /hpf [facility] Chest 1 Viewon 09-07-2024 Chest 1 View [facility] Imaging Services [address] [place], [place] [address] Chest 1 View MR#: [id number] Acct: [id number] Name: LYLESCLARK LAMA Rep #: [id number] : 1935 M 88 From: Axel Marie MD PCP: MARIANA Humphreys Status: REG ER Study: Chest 1 View Date of Exam: 09/07/24 Exam# [id number] Ordering Dr: Neo Tejeda DO PROCEDURE: CHEST 1 VIEW REASON FOR EXAM: Cough TECHNIQUE: Frontal view of the chest. COMPARISON: Reviewed. FINDINGS: The cardiac and mediastinal contours are normal. The lungs are clear. RAD/Chest 1 View IMPRESSION: No acute radiographic process. Reading Location: [facility] CC: VOICE INTERCEPT TECHNICIAN Brigitte Segal; Dr. Neo Tejeda DO Vice President Media Relations: Signed Normal [facility] D-Dimer Quantitative (DVT/PE )on 09-07-2024 D-DIMER QUANT 1.63 FEU/ug/m Invalid Interpretation Code 0.27-0.49 [facility] Comment on above: Result Comment: D-Di marv ELEVATED (>0.49): Additional studies and clinical assessments are indicated to conclude diagnosis of: Deep Vein Thrombosis (DVT) or Pulmonary Embolism (PE) CRITICAL VALUE CALLED TO NIKOLAS HILL 09/07/24 1307 Robyn Lizarraga. RESULTS READ BACK BY SAME. Performed By: #### L 100.0100, L500.2500 #### [facility] [address] [facility] [place], [address] Elbow min 3 Viewson 09-07-19 25 Elbow min 3 Views [facility] Imaging Services [address] [place] [address] Elbow min 3 Views MR#: [id number] Acct: [id number] Name: CLARK LYLES Rep #: [id number] : 1935 M 88 From: Axel Marie MD PCP: MARIANA Humphreys Status: REG ER Study: Elbow min 3 Views Date of Exam: 09/07/24 Exam# [id number] Ordering Dr: Neo Tejeda DO PROCEDURE: ELBOW [...] No other acute radiographic process. Reading Location: [facility] CC: MARIANA Segal; Dr. Neo Tejeda DO Vice President Media Relations: Signed Normal [facility] Elbow min 3 Views [facility] Imaging Services [address] [place] [address] Elbow min 3 Views MR#: [id number] Acct: [id number] Name: CLARK LYLES Rep #: [id number] : 1935 M 88 From: Axel Marie MD PCP: MARIANA Humphreys Status: REG ER Study: Elbow min 3 Views Date of Exam: 09/07/24 Exam# [id number] Ordering Dr: Neo Tejeda DO PROCEDURE: ELBOW [...] No other acute radiographic process. [facility] CC: MARIANA Segal; Dr. Neo Tejeda DO Vice President Media Relations: Signed Normal [facility] Emergency Department Summary on 09-07-2024 Emergency Department Summary [facility] Medical Records Department [address] [place] [address] Emergency Department Summary 09/07/24 MR#: [id number] Acct: [id number] Name: CLARK LYLES Rep #: [id number] : 1935 88 From: Neo Tejeda DO PCP: Brigitte Segal, VOICE INTERCEPT TECHNICIAN Status:ADM IN Location: [place] [address] HPI History of Present Illness Chief Complaint: Stroke Alert [facility] Medical History (Updated 09/07/24 @ 13:[address] Jerrell Faith MD) COVID-19 virus detected (08/23/20) Anxiety and depression Chronic anemia Acute respiratory failure with hypoxia Hypoxia Pneumonia due to COVID-19 virus GI bleed (12/2019) Atherosclerosis of coronary artery of wrangell heart without angina pectoris Peripheral vascular occlusive [...] was fo (more content not included)... Normal [facility] H AND P Exam - Hospitaliston 09-07-2024 H&P Exam - Hospitalist [facility] Medical Records Department [address] [place] [address] H P Exam - Hospitalist 09/07/24 1317 MR#: [id number] Acct: [id number] Name: CLARK LYLES Rep #: [id number] : 1935 88 From: Jerrell Faith MD PCP: Brigitte Segal, VOICE INTERCEPT TECHNICIAN Status:ADM IN Location: [place] [address] HPI - General General Date of Admission: [...] monitored bed for further management [facility] Medical History (Updated 09/07/24 @ 13:[address] Jerrell Faith MD) COVID-19 virus detected (08/23/20) Anxiety and depression Chronic anemia Acute respiratory failure with hypoxia Hypoxia Pneumonia due to COVID-19 virus GI bleed (12/2019) Atherosclerosis of coronary artery of wrangell heart without angina pectoris Peripheral vascular occlusive [...] 10:23 02/ (more content not included)... Normal [facility] Hyaline casts LM.LPF (Urine sed) [#/Area]Ordered By: Neo Tejeda on 09-07-2024 Hyaline casts (Urine sed) [#/Area] 0 /[LPF] 0-5 [facility] Influenza virus A and B and SARS-CoV-2 (COVID-19) and Respiratory syncytial virus RNAOrdered By: Neo Tejeda on 09-07-2024 SARS-CoV-2 (COVID-19) RNA CAMERON+probe Ql (Unsp spec) [facility] International normalized rat io (INR) calculationOrdered By: Neo Tejeda on 09-07-2024 INR Coag (Bld) [Relative time] 1.0 {INR} [facility] Ketones Test strip Ql (U)Ord ered By: Neo Tejeda on 09-07-2024 Ketones Ql (U) 5 mg/dl High Negative [facility] L501.4020on 09-07-2024 TROPONIN-I HS 68 pg/mL Normal 3.0-78.0 [facility] Comment on above: Order Comment: Comme nts: SPECIMEN #3'TROP' Serial specimen #1, #2 or #3: 3 Result Comment: Plea se Note: New Test Units and Gender Specific Reference Ranges. For more information see Policy Stat Procedure May High Sensitivity Troponin (TNIH) and attachments. Performed By: #### L 100.0100, L500.2500 #### [facility] Laboratory [address] [place], [address] TROPONIN-I HS 76 pg/mL Normal 3.0-78.0 [facility] Comment on above: Order Comment: Comme nts: SPECIMEN #2'TROP' Serial specimen #1, #2 or #3: 2 Result Comment: Plea se Note: New Test Units and Gender Specific Reference Ranges. For more information see Policy Stat Procedure May High Sensitivity Troponin (TNIH) and attachments. Performed By: #### L 100.0100, L500.2500 #### [facility] [address] [place], [address] TROPONIN-I HS 63 pg/mL Normal 3.0-78.0 [facility] Comment on above: Order Comment: 'TROP ' Serial specimen #1, #2 or #3: 1 Result Comment: Plea se Note: New Test Units and Gender Specific Reference Ranges. For more information see Policy Stat Procedure May High Sensitivity Troponin (TNIH) and attachments. Performed By: #### L 500.2500, L501.4020, L100.0100, L300.3900, L300.4310 ####[facility] [address] [place], [address] M100.678on 09-07-2024 M100.678 Pending SARS-CoV-2 (COVID 19) Negative INFLUENZA A Negative INFLUENZA B Negative RSV PCR Negative Normal [facility] Comment on above: Performed By: #### L 100.0100, L500.2500 #### [facility] [address] [place], [address] Measurement, pHOrdered By: Hugo Tejeda on 09-07-2024 pH (Unsp spec) 7.38 [pH] 7.35-7.45 [facility] Microscopic analysis of urin e for red blood cells (RBC)Ordered By: Neo Tejeda on 09-07-2024 Microscopic analysis of urine for red blood cells (RBC) 0-5 SEEN /hpf 0-5 [facility] Mucus LM Ql (Urine sed)Order ed By: Neo Tejeda on 09-07-2024 Mucus Ql (Urine sed) 1+ /hpf [facility] Nitrite Test strip Ql (U)Ord ered By: Neo Tejeda on 09-07-2024 Nitrite Ql (U) Negative Negative [facility] No Panel InformationOrdered By: Neo Tejeda on 09-07-2024 Blood Gas Clinical Comments AIRVO 60L [facility] Blood Gas Sample Site R Radial [facility] Blood Gas Specimen Type ART [facility] Blood Gas Vent Mode Not entered [facility] Oxygen Delivery Device [facility] Partial Thromboplast Timeon 09-07-2024 aPTT Coag (Bld) [Time] 26.5 s Normal 24.1-36.2 [facility] Comment on above: Performed By: #### L 500.2500, L501.4020, L100.0100, L300.3900, L300.4310 ####[facility] [address] [place], [place], [address] Protein Test strip Ql (U)Ord ered By: Neo Tejeda on 09-07-2024 Protein Ql (U) 30 mg/dl High Negative [facility] Prothrombin Time w/INRon INR Coag (PPP) [Relative time] 1.0 {INR} Normal [facility] Comment on above: Performed By: #### L 500.2500, L501.4020, L100.0100, L300.3900, L300.4310 ####[facility] [address] [place], [place], [address] PT Coag (PPP) [Time] 13.6 s Normal 11.7-14.9 [facility] Comment on above: Performed By: #### L 500.2500, L501.4020, L100.0100, L300.3900, L300.4310 ####[facility] [address] [place], [address] Prothrombin timeOrdered By: Neo Tejeda on 09-07-2024 PT Coag (PPP) [Time] 13.6 s 11.7-14.9 [facility] RESPIRATORY PANEL MOLECULARo n 09-07-2024 RP PANEL [...] Not Detected RSV B Not Detected Normal [facility] Comment on above: Performed By: #### L 100.0100, L500.2500 #### [facility] [address] [place], [address] Respiratory pathogens detect ion panel by molecular detection methodOrdered By: Jerrell Faith on 09-07-2024 Respiratory pathogens DNA and RNA panel CAMERON+probe (Resp) [facility] STROKE Brain/Head without Co nton 09-07-2024 STROKE Brain/Head without Cont [facility] Imaging Services [address] [place], [place] [address] STROKE Brain/Head without Cont MR#: [id number] Acct: [id number] Name: CLARK LYLES Rep #: [id number] : 1935 M 88 From: Axel Marie MD PCP: CHRISTINE Brown Status: REG ER Study: STROKE Brain/Head without Cont Date of Exam: 0 09/07/24 Exam# [id number] Ordering Dr: Neo Tejeda DO EXAM: STROKE [...] the time of this dictation [facility] CC: Dr. Neo Tejeda DO; CHRISTINE Brown Vice President Media Relations: Signed Normal [facility] Squamous epithelial cells de tection in urine sediment by light microscopyOrdered By: Neo Tejeda on 09-07-2024 Epithelial cells.squamous LM Ql (Urine sed) 0-5 SEEN /hpf 0-5 [facility] Total carbon dioxide measure mentOrdered By: Neo Tejeda on 09-07-2024 CO2 [Moles/Vol] 18 mmol/L [facility] Troponin IOrdered By: Jerrell Faith on 09-07-2024 Troponin I 68 pg/mL 3.0-78.0 [facility] Comment on above: Please Note: [place] t Units and Gender Specific Reference Ranges. For more information see Policy Stat Procedure May High Sensitivity Troponin (TNIH) and attachments. Urinalysis, Completeon 09-07 CA OX CRYSTAL 1+ /hpf Normal [facility] Comment on above: Order Comment: COLLE CTOR TO SPECIFY Performed By: #### L 100.0100, L500.2500 #### [facility] [address] [place], [place], [address] BACTERIA RARE Normal None Seen [facility] Comment on above: Order Comment: COLLE CTOR TO SPECIFY Performed By: #### L 100.0100, L500.2500 #### [facility] [address] [place], [address] CAST,HYALINE 0-5 SEEN Normal 0-5 [facility] Comment on above: Order Comment: COLLE CTOR TO SPECIFY Performed By: #### L 100.0100, L500.2500 #### [facility] [address] [place], [address] EPI,SQUAMOUS 0-5 SEEN Normal 0-5 [facility] Comment on above: Order Comment: COLLE CTOR TO SPECIFY Performed By: #### L 100.0100, L500.2500 #### [facility] [address] [place], [address] Mucus Ql (Urine sed) 1+ /hpf Normal [facility] Comment on above: Order Comment: COLLE CTOR TO SPECIFY Performed By: #### L 100.0100, L500.2500 #### [facility] [address] [place], [address] RBC 0-5 SEEN Normal 0-5 [facility] Comment on above: Order Comment: [facility] CTOR TO SPECIFY Performed By: #### L 100.0100, L500.2500 #### [facility] [address] [place], [address] WBC 0-5 SEEN Normal 0-5 [facility] Comment on above: Order Comment: [facility] CTOR TO SPECIFY Performed By: #### L 100.0100, L500.2500 #### [facility] [address] [place], [address] Urine clarityOrdered By: Ninoska Tejeda on 09-07-2024 Clarity (U) Clear Clear [facility] Urine color determinationOrd ered By: Neo Tejeda on 09-07-2024 Color (U) Yellow Yellow [facility] Urine glucose detectionOrder ed By: Neo Tejeda on 09-07-2024 Glucose Ql (U) Normal mg/dl Normal [facility] Urine leukocyte esterase det ection by dipstickOrdered By: Neo Tejeda on 09-07-2024 Leukocyte esterase Test strip Ql (U) Negative Negative [facility] Urine pHOrdered By: Neo espinalus on 09-07-2024 pH (U) 6.0 [pH] 5.0 - 8.0 [facility] Urine sediment bacteria coun t by microscopy (number/high power field)Ordered By: Neo Tejeda on 09-07-2024 Bacteria LM.HPF (Urine sed) [#/Area] RARE /hpf None Seen [facility] Urine specific gravity measu rementOrdered By: Neo Tejeda on 09-07-2024 Specific gravity (U) [Rel density] 1.010 1.002-1.03 0 [facility] Urine urobilinogen measureme ntOrdered By: Neo Tejeda on 09-07-2024 Urobilinogen Ql (U) Normal mg/dl Normal [facility] White blood cell countOrdere d By: Neo Tejeda on 09-07-2024 White blood cell count 0-5 SEEN /hpf 0-5 [facility] CNOVon 03-27-2024 [facility] ([id number]) 1935 M Date Time Provider Department 03/27/24 8:00 AM [facility] During your visit today, we recorded the following information about you: Pulse Respiration Blood pressure Weight 63/minute 16/minute 126/67 68.9 kg Brigitte Segal APRN.[employer] COVER TREATER 03/27/2024 8:28 AM Addendum This is a [...] lipoma performed by Dr. Robe Mackenzie at [facility] 03-18-14: REVSC OPN/PRQ FEM/POP W/STNT/ANGIOP [...] METOPROLOL SUCCINATE (more content not included)... Normal [facility] 02-26-2024 JANETN Telephone ([facility]) CLARK LYLES ([id number]) 1935 M Date Time Provider Department 02/26/24 BRIGITTE SEGAL [facility] During your visit today, we recorded the following information about you: Brigitte Segal APRN.JANET 02/26/2024 8:00 AM Signed Patient does not [...] Date Reviewed: 02/25/2024 Reviewed by: Brigitte Segal APRN.GOLF BALL COVER TREATER - Fully Assessed Prescriptions as of 02/26/2024 [...] Meds Comments as of 04/18/2021: Taking Saw [place]. Problem List As Of Date 02/26/2024 Noted [...] chronic blood los*01/27/2020 Coronary artery disease involving wrangell rabago*12/22/2020 S/P primary angioplasty with coronary stent [Z9*12/22/2020 Fall from standing [W19.XXXA] 09/20/2021 Encounter for support and coordination of trans*08/11/2023 Acute respiratory failure with hypoxia (HCC) [J*09/25/2023 Encounter Status:Closed by SHIRLEY RIVERA on 02/26/24 Normal [facility] Amylase SerPl-cCncon 024 Amylase [Catalytic activity/Vol] 52 U/L Normal 30-104 [facility] Comment on above: Order Comment: Speci men Type: BLOOD SPECIMENOrdering Facility: [facility] Address: [address] [place] [address] Performed By: #### 3 040-3, 1798-8, 68458-0 ####[facility] LABCLIA [id number] [place] [address] [place] CBC W Auto Differential pane l (Bld)on 02-25-2024 Basophils (Bld) [#/Vol] 0.04 10*3/uL Normal <0.11 [facility] Comment on above: Order Comment: Speci men Type: BLOOD SPECIMENOrdering Facility: [facility] Address: [address] [place] [address] Performed By: #### 5 7021-8 ####[facility] LABCLIA [id number] [place] [address] [place] Basophils/100 WBC (Bld) 0.4 % Normal [facility] Comment on above: Order Comment: Speci men Type: BLOOD SPECIMENOrdering Facility: [facility] Address: [address] [place] [address] Performed By: #### 5 7021-8 ####[facility] LABCLIA [id number] [place] [address] [place] Differential cell count method Nom (Bld) Auto Normal [facility] Comment on above: Order Comment: Speci men Type: BLOOD SPECIMENOrdering Facility: [facility] Address: [address] [place] [address] Performed By: #### 5 7021-8 ####[facility] LABCLIA [id number] [place] [address] [place] Eosinophils (Bld) [#/Vol] 0.31 10*3/uL Normal <0.46 [facility] Comment on above: Order Comment: Speci men Type: BLOOD SPECIMENOrdering Facility: [facility] Address: [address] [place] [address] Performed By: #### 5 7021-8 ####[facility] LABCLIA [id number] [place] [address] [place] Eosinophils/100 WBC (Bld) 2.9 % Normal [facility] Comment on above: Order Comment: Speci men Type: BLOOD SPECIMENOrdering Facility: [facility] Address: [address] [place] [address] Performed By: #### 5 7021-8 ####[facility] LABCLIA [id number] [place] [address] [place] Erythrocyte distribution width (RBC) [Ratio] 14.8 % Normal 11.5-15.0 [facility] Comment on above: Order Comment: Speci men Type: BLOOD SPECIMENOrdering Facility: [facility] Address: [address] [place] [address] Performed By: #### 5 7021-8 ####[facility] LABCLIA [id number] [place] [address] [place] Hematocrit (Bld) [Volume fraction] 50.9 % Normal 39.0-51.0 [facility] Comment on above: Order Comment: Speci men Type: BLOOD SPECIMENOrdering Facility: [facility] Address: [address] [place] [address] Performed By: #### 5 7021-8 ####[facility] LABCLIA [id number] [place] [address] [place] Hemoglobin (Bld) [Mass/Vol] 16.4 g/dL Normal 13.0-17.0 [facility] Comment on above: Order Comment: Speci men Type: BLOOD SPECIMENOrdering Facility: [facility] Address: [address] [place] [address] Performed By: #### 5 7021-8 ####[facility] LABCLIA [id number] [place] [address] [place] Immature granulocytes (Bld) [#/Vol] 0.08 10*3/uL Normal <0.10 [facility] Comment on above: Order Comment: Speci men Type: BLOOD SPECIMENOrdering Facility: [facility] Address: [address] [place] [address] Performed By: #### 5 7021-8 ####[facility] LABCLIA [id number] [place] [address] [place] Immature granulocytes/100 WBC (Bld) 0.7 % Normal [facility] Comment on above: Order Comment: Speci men Type: BLOOD SPECIMENOrdering Facility: [facility] Address: [address] [place] [address] Performed By: #### 5 7021-8 ####[facility] LABCLIA [id number] [place] [address] [place] Lymphocytes (Bld) [#/Vol] 0.73 10*3/uL Low 1.00-4.00 [facility] Comment on above: Order Comment: Speci men Type: BLOOD SPECIMENOrdering Facility: [facility] Address: [address] [place] [address] Performed By: #### 5 7021-8 ####[facility] LABCLIA [id number] [place] [address] [place] Lymphocytes/100 WBC (Bld) 6.7 % Normal [facility] Comment on above: Order Comment: Speci men Type: BLOOD SPECIMENOrdering Facility: [facility] Address: [address] [place] [address] Performed By: #### 5 7021-8 ####[facility] LABCLIA [id number] [id number] [address] [place] MCH (RBC) [Entitic mass] 29.8 pg Normal 26.0-34.0 [facility] Comment on above: Order Comment: Speci men Type: BLOOD SPECIMENOrdering Facility: [facility] Address: [address] [place] [address] Performed By: #### 5 7021-8 ####[facility] LABCLIA [id number] [place] [address] [place] MCHC (RBC) [Mass/Vol] 32.2 g/dL Normal 30.5-36.0 [facility] Comment on above: Order Comment: Speci men Type: BLOOD SPECIMENOrdering Facility: [facility] Address: [address] [place] [address] Performed By: #### 5 7021-8 ####[facility] LABCLIA [id number] [place] [address] [place] MCV (RBC) [Entitic vol] 92.4 fL Normal 80.0-100.0 [facility] Comment on above: Order Comment: Speci men Type: BLOOD SPECIMENOrdering Facility: [facility] Address: [address] [place] [address] Performed By: #### 5 7021-8 ####[facility] LABCLIA [id number] [place] [address] [place] Monocytes (Bld) [#/Vol] 0.75 10*3/uL Normal <0.87 [facility] Comment on above: Order Comment: Speci men Type: BLOOD SPECIMENOrdering Facility: [facility] Address: [address] [place] [address] Performed By: #### 5 7021-8 ####[facility] LABCLIA [id number] [place] [address] [place] Monocytes/100 WBC (Bld) 6.9 % Normal [facility] Comment on above: Order Comment: Speci men Type: BLOOD SPECIMENOrdering Facility: [facility] Address: [address] [place] [address] Performed By: #### 5 7021-8 ####[facility] LABCLIA [id number] [place] [address] [place] Neutrophils (Bld) [#/Vol] 8.92 10*3/uL High 1.45-7.50 [facility] Comment on above: Order Comment: Speci men Type: BLOOD SPECIMENOrdering Facility: [facility] Address: [address] [place] [address] Performed By: #### 5 7021-8 ####[facility] LABCLIA [id number] [place] [address] [place] Neutrophils/100 WBC (Bld) 82.4 % Normal [facility] Comment on above: Order Comment: Speci men Type: BLOOD SPECIMENOrdering Facility: [facility] Address: [address] [place] [address] Performed By: #### 5 7021-8 ####[facility] LABCLIA [id number] [place] [address] [place] Nucleated RBC (Bld) [#/Vol] 10*3/uL Normal <0.01 [facility] Comment on above: Order Comment: Speci men Type: BLOOD SPECIMENOrdering Facility: [facility] Address: [address] [place] [address] Performed By: #### 5 7021-8 ####[facility] LABCLIA [id number] [place] [address] [place] Nucleated RBC/100 WBC (Bld) [Ratio] 0.0 /100 WBC Normal [facility] Comment on above: Order Comment: Speci men Type: BLOOD SPECIMENOrdering Facility: [facility] Address: [address] [place] [address] Performed By: #### 5 7021-8 ####[facility] LABCLIA [id number] [place] [address] [place] Platelet mean volume (Bld) [Entitic vol] 11.8 fL Normal 9.0-12.7 [facility] Comment on above: Order Comment: Speci men Type: BLOOD SPECIMENOrdering Facility: [facility] Address: [address] [place] [address] Performed By: #### 5 7021-8 ####[facility] LABIA [id number] [place] [address] [place] Platelets (Bld) [#/Vol] 234 10*3/uL Normal 150-400 [facility] Comment on above: Order Comment: Speci men Type: BLOOD SPECIMENOrdering Facility: [facility] Address: [address] [place] [address] Performed By: #### 5 7021-8 ####[facility] LABCLIA [id number] [place] [address] [place] RBC (Bld) [#/Vol] 5.51 10*6/uL Normal 4.20-6.00 [facility] Comment on above: Order Comment: Speci men Type: BLOOD SPECIMENOrdering Facility: [facility] Address: [address] [place] [address] Performed By: #### 5 7021-8 ####[facility] LABIA [id number] [place] [address] [place] WBC (Bld) [#/Vol] 10.83 10*3/uL Normal 3.70-11.00 [facility] Comment on above: Order Comment: Speci men Type: BLOOD SPECIMENOrdering Facility: [facility] Address: [address] [place] [address] Performed By: #### 5 7021-8 ####[facility] LABCLIA [id number] [place] [address] [place] CNOVon 02-25-2024 CNOV Office Visit ([facility] ) CLARK LYLES ([id number]) 1935 M Date Time Provider Department 02/25/24 8:20 AM [facility] During [facility] visit today, we recorded the following information about you: Pulse Respiration Blood pressure Weight 60/minute 16/minute 148/70 68.9 kg Brigitte Segal, [facility] 02/25/2024 8:51 AM Signed This is a [...] lipoma performed by Dr. Robe Mackenzie at [facility] REVSC OPN/PRQ FEM/POP W/STNT/ANGIOP SM [...] - Recheck in 1 month Brigitte Segal APRN.Pop Harden (more content not included)... Normal [facility] Comprehensive metabolic 2000 panelon 02-25-2024 Albumin [Mass/Vol] 4.4 g/dL Normal 3.9-4.9 [facility] Comment on above: Order Comment: Speci men Type: BLOOD SPECIMENOrdering Facility: [facility] Address: [address] [place] [address] Performed By: #### 3 040-3, 1798-02, ####[facility] LABIA [id number] [place] [address] [place] ALP [Catalytic activity/Vol] 57 U/L Normal 38-113 [facility] Comment on above: Order Comment: Speci men Type: BLOOD SPECIMENOrdering Facility: [facility] Address: [address] [place] [address] Performed By: #### 3 040-3, 1798-02, ####[facility] LABCLIA [id number] [place] [address] [place] ALT [Catalytic activity/Vol] 24 U/L Normal 10-54 [facility] Comment on above: Order Comment: Speci men Type: BLOOD SPECIMENOrdering Facility: [facility] Address: [address] [place], [place] [address] Performed By: #### 3 040-3, 1798-02, ####[facility] LABCLIA [id number] [address] [address] [place] Anion gap [Moles/Vol] 12 mmol/L Normal 8-15 [facility] Comment on above: Order Comment: Speci men Type: BLOOD SPECIMENOrdering Facility: [facility] Address: [address] [place], [place] [address] Performed By: #### 3 040-3, 1798-02, ####[facility] LABCLIA [id number] [place] [id number] [place] AST [Catalytic activity/Vol] 28 U/L Normal 14-40 [facility] Comment on above: Order Comment: Speci men Type: BLOOD SPECIMENOrdering Facility: [facility] Address: [address] [place] [address] Performed By: #### 3 040-3, 1798-02, ####[facility] LABCLIA [id number] [place] [id number] [place] Bilirubin [Mass/Vol] 1.1 mg/dL Normal 0.2-1.3 [facility] Comment on above: Order Comment: Speci men Type: BLOOD SPECIMENOrdering Facility: [facility] Address: [address] [place], [place] [address] Performed By: #### 3 040-3, 1798-02, ####[facility] LABCLIA [id number] [address] [address] [place] Calcium [Mass/Vol] 9.7 mg/dL Normal 8.5-10.2 [facility] Comment on above: Order Comment: Speci men Type: BLOOD SPECIMENOrdering Facility: [facility] Address: [address] [place], [place] [address] Performed By: #### 3 040-3, 1798-02, 68579-1 ####[facility] LABCLIA [id number] [place] [id number] [place] Chloride [Moles/Vol] 103 mmol/L Normal 98-107 [facility] Comment on above: Order Comment: Speci men Type: BLOOD SPECIMENOrdering Facility: [facility] Address: [address] [place] [address] Performed By: #### 3 040-3, 1798-02, ####[facility] LABIA [id number] [place] [address] [place] CO2 [Moles/Vol] 24 mmol/L Normal 22-30 [facility] Comment on above: Order Comment: Speci men Type: BLOOD SPECIMENOrdering Facility: [facility] Address: [address] [place] [address] Performed By: #### 3 040-3, 1798-02, 50314-5 ####[facility] LABIA [id number] [place] [address] [place] Creatinine [Mass/Vol] 0.90 mg/dL Normal 0.73-1.22 [facility] Comment on above: Order Comment: Speci men Type: BLOOD SPECIMENOrdering Facility: [facility] Address: [address] [place] [address] Performed By: #### 3 040-3, 1798-02, ####[facility] LABIA [id number] [place] [address] [place] Creatinine and Glomerular filtration rate.predicted panel (S/P/Bld) 83 mL/min/1.73m??? Normal >=60 [facility] Comment on above: Order Comment: Speci men Type: BLOOD SPECIMENOrdering Facility: [facility] Address: [address] [place] [address] Result Comment: Louann mated Glomerular Filtration Rate [...] actual GFR. Performed By: #### 3 040-3, 8, ####[facility] LABCLIA [id number] [place] [id number] [place] Glucose [Mass/Vol] 89 mg/dL Normal 74-99 [facility] Comment on above: Order Comment: Spechakan men Type: BLOOD SPECIMENOrdering Facility: [facility] Address: [address] [place] [address] Result Comment: The [place] Diabetes [employer] (ADA) provides guidance for cutoff [...] Standards of Medical Care in Diabetes 2016, [place] [employer]. Diabetes Care. 2016.39(Suppl 1). Performed By: #### 3 040-3, 1798-02, ####[facility] LABCLIA [id number] [place] [id number] [place] Potassium [Moles/Vol] 4.4 mmol/L Normal 3.7-5.1 [facility] Comment on above: Order Comment: Kailey simons Type: BLOOD SPECIMENOrdering Facility: [facility] Address: [address] [place] [address] Performed By: #### 3 040-3, 8, ####[facility] LABCLIA [id number] [place] [address] [place] Protein [Mass/Vol] 6.1 g/dL Low 6.3-8.0 [facility] Comment on above: Order Comment: Speci men Type: BLOOD SPECIMENOrdering Facility: [facility] Address: [address] [place] [address] Performed By: #### 3 040-3, 8, 04500-1 ####[facility] LABCLIA [id number] [place] [address] [place] Sodium [Moles/Vol] 139 mmol/L Normal 136-144 [facility] Comment on above: Order Comment: Speci men Type: BLOOD SPECIMENOrdering Facility: [facility] Address: [address] [place] [address] Performed By: #### 3 040-3, 1798-02, 33970-0 ####[facility] LABIA [id number] [place] [address] [place] Urea nitrogen [Mass/Vol] 15 mg/dL Normal 9-24 [facility] Comment on above: Order Comment: Speci men Type: BLOOD SPECIMENOrdering Facility: [facility] Address: [address] [place] [address] Performed By: #### 3 040-3, 1798-02, 09551-3 ####[facility] LABCLIA [id number] [place] [id number] [place] H. pylori IgG IA Qlon 2023 H. PYLORI IGG, QUAL Negative Normal Negative [facility] Comment on above: Order Comment: Speci men Type: BLOOD SPECIMENOrdering Facility: [facility] Address: [address] [place] [address] Result Comment: To ot exclude H. pylori infection if the specimen collected 3-4 weeks after onset of symptoms. Performed By: #### 1 7859-0 ####[facility] LABCLIA [id number] [place] [id number] [place] Lipase SerPl-cCncon 02-25-20 24 Lipase [Catalytic activity/Vol] 41 U/L Normal 16-61 [facility] Comment on above: Order Comment: Speci men Type: BLOOD SPECIMENOrdering Facility: [facility] Address: [address] [place] [address] Performed By: #### 3 040-3, 1798-8, 56652-4 ####[facility] [id number] [place] [address] [place] Cardiology Visit Reporton Cardiology Visit Report [facility] [place] [address] [place] [address] OFFICE VISIT Date of Service: 02/19/24 MR#: [id number] Acct: [id number] Name: CLARK LYLES Rep #: [id number] : 1935 Provider: CHRISTINE Valdez Age/Sex: 88/M Location: [facility] Status: Signed HPI HPI History of Present [...] air Intake Visit Reasons: O/D for FU Chief Specialist Leed Required: No Accompanied by: Daughter Is patient [...] you fallen in the past year?: No PFSH Medical History COVID-19 virus detected (08/23/20) Anxiety and depression Chronic anemia Acute respiratory failure with hypoxia Hypoxia Pneumonia due to COVID-19 virus GI bleed (12/2019) Atherosclerosis of coronary artery of 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 Normal [facility] 12 Lead EKGon 02-09-2024 12 Lead EKG [facility] Cardiovascular Services [address] [place] [address] 12 Lead EKG 02/09/24 0952 MR#: [id number] Acct: [id number] Name: CLARK LYLES Rep #: [id number] : 1935 88 From: Farrah Ruvalcaba MD [...] Normal ECG Confirmed by RITA MANUEL, YUAN ([id number]), multimedia editor FARSHAD PANDYA ([id number]) on 02/13/2024 9:44:33 AM Referred By: [place] Confirmed By:ABEL RUVALCABA MD 02/13/24943 Date Farrah Ruvalcaba MD CC: Dr. Tamra Ivey MD; CHRISTINE Brown Signed Normal [facility] BNP,B-Type NATRIURETIC PEPTI Giovanni 02-09-2024 Natriuretic peptide B (Bld) [Mass/Vol] 180.0 pg/mL High 0-100 [facility] Comment on above: Performed By: #### L 100.0100, L300.8000, L503.6620, L500.2500, L501.4020 ####[facility] [address] [place], [place], [id number] Basic Metabolic Profile (BMP )on 02-09-2024 BUN/CRE 13.1 RATIO Normal 10-20 [facility] Comment on above: Order Comment: 'TROP ' Serial specimen #1, #2 or #3: 1 Performed By: #### L 100.0100, L300.8000, L503.6620, L500.2500, L501.4020 ####[facility] [address] [place], [address] CA,Total 9.0 mg/dL Normal 8.5-10.1 [facility] Comment on above: Order Comment: 'TROP ' Serial specimen #1, #2 or #3: 1 Performed By: #### L 100.0100, L300.8000, L503.6620, L500.2500, L501.4020 ####[facility] [address] [place], [address] Chloride [Moles/Vol] 105 mmol/L Normal 98-107 [facility] Comment on above: Order Comment: 'TROP ' Serial specimen #1, #2 or #3: 1 Performed By: #### L 100.0100, L300.8000, L503.6620, L500.2500, L501.4020 ####[facility] [address] [place], [address] CO2 [Moles/Vol] 24.0 mmol/L Normal 21.0-32.0 [facility] Comment on above: Order Comment: 'TROP ' Serial specimen #1, #2 or #3: 1 Performed By: #### L 100.0100, L300.8000, L503.6620, L500.2500, L501.4020 ####[facility] [address] [place], [address] Creatinine [Mass/Vol] 0.92 mg/dL Normal 0.70-1.30 [facility] Comment on above: Order Comment: 'TROP ' Serial specimen #1, #2 or #3: 1 Result Comment: The validity of the calculated GFR GFRAA in patients over 70 years has not been determined. Clinical correlation is essential. Performed By: #### L 100.0100, L300.8000, L503.6620, L500.2500, L501.4020 ####[facility] [address] [place], [address] ECRCL 58.61 ml/min Normal [facility] Comment on above: Order Comment: 'TROP ' Serial specimen #1, #2 or #3: 1 Performed By: #### L 100.0100, L300.8000, L503.6620, L500.2500, L501.4020 ####[facility] [address] [place], [address] EST GFR - AA 100 mL/min Normal >60 [facility] Comment on above: Order Comment: 'TROP ' Serial specimen #1, #2 or #3: 1 Result Comment: Afri can [place] GFR Calc Performed By: #### L 100.0100, L300.8000, L503.6620, L500.2500, L501.4020 ####[facility] [address] [place], [address] GAP 7 Normal 5-15 [facility] Comment on above: Order Comment: 'TROP ' Serial specimen #1, #2 or #3: 1 Performed By: #### L 100.0100, L300.8000, L503.6620, L500.2500, L501.4020 ####[facility] [address] [place], [address] GFR/1.73 sq M.predicted among non-blacks MDRD (S/P/Bld) [Vol rate/Area] 83 mL/min/{1.73_m2} Normal >60 [facility] Comment on above: Order Comment: 'TROP ' Serial specimen #1, #2 or #3: 1 Result Comment: Non- GFR Calc Performed By: #### L 100.0100, L300.8000, L503.6620, L500.2500, L501.4020 ####[facility] [address] [place], [address] Glucose [Mass/Vol] 115 mg/dL High 74-106 [facility] Comment on above: Order Comment: 'TROP ' Serial specimen #1, #2 or #3: 1 Result Comment: Fast ing Glucose result from 100 to 125 mg/dL suggests IMPAIRED HOMEOSTASIS per A.D.A. criteria. Performed By: #### L 100.0100, L300.8000, L503.6620, L500.2500, L501.4020 ####[facility] [address] [place], [address] Potassium [Moles/Vol] 3.6 mmol/L Normal 3.5-5.1 [facility] Comment on above: Order Comment: 'TROP ' Serial specimen #1, #2 or #3: 1 Performed By: #### L 100.0100, L300.8000, L503.6620, L500.2500, L501.4020 ####[facility] [address] [place], [address] Sodium [Moles/Vol] 136 mmol/L Normal 136-145 [facility] Comment on above: Order Comment: 'TROP ' Serial specimen #1, #2 or #3: 1 Performed By: #### L 100.0100, L300.8000, L503.6620, L500.2500, L501.4020 ####[facility] [address] [place], [address] Urea nitrogen [Mass/Vol] 12 mg/dL Normal 7-18 [facility] Comment on above: Order Comment: 'TROP ' Serial specimen #1, #2 or #3: 1 Performed By: #### L 100.0100, L300.8000, L503.6620, L500.2500, L501.4020 ####[facility] [address] [place], [address] CBC W/Diff, Automatedon 07- Absolute Lymph 0.49 X10 3/uL Low 0.83-4.51 [facility] Comment on above: Performed By: #### L 100.0100, L300.8000, L503.6620, L500.2500, L501.4020 ####[facility] [address] [place], [address] Absolute Neut 7.0 X10 3/uL Normal 2.0-7.7 [facility] Comment on above: Performed By: #### L 100.0100, L300.8000, L503.6620, L500.2500, L501.4020 ####[facility] [address] [place], [address] Basophils/100 WBC (Bld) 0.2 % Normal 0-1 [facility] Comment on above: Performed By: #### L 100.0100, L300.8000, L503.6620, L500.2500, L501.4020 ####[facility] [address] [place], [address] Eosinophils/100 WBC (Bld) 1.4 % Normal 0-5 [facility] Comment on above: Performed By: #### L 100.0100, L300.8000, L503.6620, L500.2500, L501.4020 ####[facility] [address] [place], [address] Erythrocyte distribution width (RBC) [Ratio] 15.9 % High 11.6-14.6 [facility] Comment on above: Performed By: #### L 100.0100, L300.8000, L503.6620, L500.2500, L501.4020 ####[facility] [address] [place], [address] Hematocrit (Bld) [Volume fraction] 46.2 % Normal 40-54 [facility] Comment on above: Performed By: #### L 100.0100, L300.8000, L503.6620, L500.2500, L501.4020 ####[facility] [address] [place], [address] Hemoglobin (Bld) [Mass/Vol] 15.6 g/dL Normal 13.0-16.5 [facility] Comment on above: Performed By: #### L 100.0100, L300.8000, L503.6620, L500.2500, L501.4020 ####[facility] [address] [place], [address] IG% 1.000 High 0.0-0.9 [facility] Comment on above: Result Comment: IG% - Immature Granulocytes (promyelocytes, myelocytes and metamyelocytes) > 1% indicates that a LEFT SHIFT is Present. Performed By: #### L 100.0100, L300.8000, L503.6620, L500.2500, L501.4020 ####[facility] [address] [place], [address] Lymphocytes/100 WBC (Bld) 5.8 % Low 19-41 [facility] Comment on above: Performed By: #### L 100.0100, L300.8000, L503.6620, L500.2500, L501.4020 ####[facility] [address] [place], [address] MCH (RBC) [Entitic mass] 30.8 pg Normal 27.0-32.0 [facility] Comment on above: Performed By: #### L 100.0100, L300.8000, L503.6620, L500.2500, L501.4020 ####[facility] [address] [place], [address] MCHC (RBC) [Mass/Vol] 33.8 g/dL Normal 32-36 [facility] Comment on above: Performed By: #### L 100.0100, L300.8000, L503.6620, L500.2500, L501.4020 ####[facility] [address] [place], [address] MCV (RBC) [Entitic vol] 91.1 fL Normal 80-94 [facility] Comment on above: Performed By: #### L 100.0100, L300.8000, L503.6620, L500.2500, L501.4020 ####[facility] [address] [place], [address] Monocytes/100 WBC (Bld) 8.1 % Normal 0-10 [facility] Comment on above: Performed By: #### L 100.0100, L300.8000, L503.6620, L500.2500, L501.4020 ####[facility] [address] [place], [address] Neutrophils/100 WBC (Bld) 83.5 % High 47-70 [facility] Comment on above: Performed By: #### L 100.0100, L300.8000, L503.6620, L500.2500, L501.4020 ####[facility] [address] [place], [address] Nucleated RBC (Bld) [#/Vol] 0 10*3/uL Normal 0-5 [facility] Comment on above: Performed By: #### L 100.0100, L300.8000, L503.6620, L500.2500, L501.4020 ####[facility] [address] [place], [address] Platelet mean volume (Bld) [Entitic vol] 10.8 fL Normal 6.2-12.0 [facility] Comment on above: Performed By: #### L 100.0100, L300.8000, L503.6620, L500.2500, L501.4020 ####[facility] [address] [place], [address] Platelets (Bld) [#/Vol] 264 10*3/uL Normal 150-450 [facility] Comment on above: Performed By: #### L 100.0100, L300.8000, L503.6620, L500.2500, L501.4020 ####[facility] [address] [place], [address] RBC (Bld) [#/Vol] 5.07 10*6/uL Normal 4.6-6.[address] [facility] Comment on above: Performed By: #### L 100.0100, L300.8000, L503.6620, L500.2500, L501.4020 ####[facility] [address] [place], [address] RDW SD 53.1 fl High 35.1-43.9 [facility] Comment on above: Performed By: #### L 100.0100, L300.8000, L503.6620, L500.2500, L501.4020 ####[facility] [address], [address] WBC (Bld) [#/Vol] 8.4 10*3/uL Normal 4.4-11.0 [facility] Comment on above: Performed By: #### L 100.0100, L300.8000, L503.6620, L500.2500, L501.4020 ####[facility] [address], [address] Chest PA and Lateralon 02-08 Chest PA and Lateral [facility] Imaging Services [address] [place] [address] Chest PA and Lateral MR#: [id number] Acct: [id number] Name: CLARK LYLES Rep #: [id number] : 1935 M 88 From: Yana Sampson MD PCP: CHRISTINE Brown Status: REG ER Study: Chest PA and Lateral Date of Exam: 02/09/24 Exam# [id number] Ordering Dr: Tamra Ivey MD [id number] INDICATION: Shortness of breath EXAMINATION/TECHNIQUE: X-RAY - [...] CC: Dr. Tamra Ivey MD; CHRISTINE Brown Vice President Media Relations: Signed Normal [facility] D-Dimer Quantitative (DVT/PE )on 02-09-2024 D-DIMER QUANT 0.34 FEU/ug/m Normal 0.27-0.49 [facility] Comment on above: Result Comment: NORM AL D-Dimer level (<0.50) indicates no DVT or PE. Performed By: #### L 100.0100, L300.8000, L503.6620, L500.2500, L501.4020 ####[facility] [address] [facility] [place], [address] Emergency Department Summary on 02-09-2024 Emergency Department Summary [facility] Medical Records Department [address] [place] [address] Emergency Department Summary 02/09/24 MR#: [id number] Acct: [id number] Name: CLARK LYLES Rep #: [id number] : 1935 88 From: Tamra Ivey MD [...] CHF. He has not noted peripheral swelling. 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 Normal [facility] L501.4020on 02-09-2024 TROPONIN-I HS 7 pg/mL Normal 3.0-78.0 [facility] Comment on above: Order Comment: 'TROP ' Serial specimen #1, #2 or #3: 1 Result Comment: Peg jiménez Note: New Test Units and Gender Specific Reference Ranges. For more information see Policy Stat Procedure May High Sensitivity Troponin (TNIH) and attachments. Performed By: #### L 100.0100, L300.8000, L503.6620, L500.2500, L501.4020 ####[facility] [address] [place], [address] [facility] 12-28-2023 [facility] Telephone ([facility]) CLARK LYLES ([id number]) 1935 M Date Time Provider Department 12/28/23 [facility]ALTER GOME[facility] During your visit today, we [...] Meds Comments as of 04/18/2021: Taking Saw [place]. Problem List As Of Date 12/28/2023 Noted [...] chronic blood los*01/27/2020 Coronary artery disease involving wrangell rabago*12/22/2020 S/P primary angioplasty with coronary stent [Z9*12/22/2020 Fall from standing [W19.XXXA] 09/20/2021 Encounter for support and coordination of trans*08/11/2023 Acute respiratory failure with hypoxia (HCC) [J*09/25/2023 Letter Text Encounter Status:Closed by SHIRLEY RIVERA on 01/04/24 Normal [facility] CBC W Auto Differential pane l (Bld)on 12-27-2023 Basophils (Bld) [#/Vol] 0.04 10*3/uL Normal <0.11 [facility] Comment on above: Order Comment: Speci men Type: BLOOD SPECIMENOrdering Facility: [facility] Address: [address] [place] [address] Performed By: #### 5 7021-8 ####[facility] LABCLIA [id number] [place] [address] [place] Basophils/100 WBC (Bld) 0.5 % Normal [facility] Comment on above: Order Comment: Speci men Type: BLOOD SPECIMENOrdering Facility: [facility] Address: [address] [place] [address] Performed By: #### 5 7021-8 ####[facility] LABCLIA [id number] [place] [address] [place] Differential cell count method Nom (Bld) Auto Normal [facility] Comment on above: Order Comment: Speci men Type: BLOOD SPECIMENOrdering Facility: [facility] Address: [address] [place] [address] Performed By: #### 5 7021-8 ####[facility] LABCLIA [id number] [place] [address] [place] Eosinophils (Bld) [#/Vol] 0.36 10*3/uL Normal <0.46 [facility] Comment on above: Order Comment: Speci men Type: BLOOD SPECIMENOrdering Facility: [facility] Address: [address] [place] [address] Performed By: #### 5 7021-8 ####[facility] LABCLIA [id number] [place] [address] [place] Eosinophils/100 WBC (Bld) 4.5 % Normal [facility] Comment on above: Order Comment: Speci men Type: BLOOD SPECIMENOrdering Facility: [facility] Address: [address] [place] [address] Performed By: #### 5 7021-8 ####[facility] LABCLIA [id number] [place] [address] [place] Erythrocyte distribution width (RBC) [Ratio] 16.4 % High 11.5-15.0 [facility] Comment on above: Order Comment: Speci men Type: BLOOD SPECIMENOrdering Facility: [facility] Address: [address] [place] [address] Performed By: #### 5 7021-8 ####[facility] LABCLIA [id number] [place] [address] [place] Hematocrit (Bld) [Volume fraction] 47.6 % Normal 39.0-51.0 [facility] Comment on above: Order Comment: Speci men Type: BLOOD SPECIMENOrdering Facility: [facility] Address: [address] [place] [address] Performed By: #### 5 7021-8 ####[facility] LABCLIA [id number] [place] [address] [place] Hemoglobin (Bld) [Mass/Vol] 15.7 g/dL Normal 13.0-17.0 [facility] Comment on above: Order Comment: Speci men Type: BLOOD SPECIMENOrdering Facility: [facility] Address: [address] [place] [address] Performed By: #### 5 7021-8 ####[facility] LABCLIA [id number] [place] [address] [place] Immature granulocytes (Bld) [#/Vol] 0.07 10*3/uL Normal <0.10 [facility] Comment on above: Order Comment: Speci men Type: BLOOD SPECIMENOrdering Facility: [facility] Address: [address] [place] [address] Performed By: #### 5 7021-8 ####[facility] LABCLIA [id number] [place] [address] [place] Immature granulocytes/100 WBC (Bld) 0.9 % Normal [facility] Comment on above: Order Comment: Speci men Type: BLOOD SPECIMENOrdering Facility: [facility] Address: [address] [place] [address] Performed By: #### 5 7021-8 ####[facility] LABCLIA [id number] [place] [address] [place] Lymphocytes (Bld) [#/Vol] 0.72 10*3/uL Low 1.00-4.00 [facility] Comment on above: Order Comment: Speci men Type: BLOOD SPECIMENOrdering Facility: [facility] Address: [address] [place] [address] Performed By: #### 5 7021-8 ####[facility] LABIA [id number] [place] [address] [place] Lymphocytes/100 WBC (Bld) 8.9 % Normal [facility] Comment on above: Order Comment: Speci men Type: BLOOD SPECIMENOrdering Facility: [facility] Address: [address] [place] [address] Performed By: #### 5 7021-8 ####[facility] LABCLIA [id number] [place] [address] [place] MCH (RBC) [Entitic mass] 30.5 pg Normal 26.0-34.0 [facility] Comment on above: Order Comment: Speci men Type: BLOOD SPECIMENOrdering Facility: [facility] Address: [address] [place] [address] Performed By: #### 5 7021-8 ####[facility] LABCLIA [id number] [place] [address] [place] MCHC (RBC) [Mass/Vol] 33.0 g/dL Normal 30.5-36.0 [facility] Comment on above: Order Comment: Speci men Type: BLOOD SPECIMENOrdering Facility: [facility] Address: [address] [place] [address] Performed By: #### 5 7021-8 ####[facility] LABCLIA [id number] [place] [address] [place] MCV (RBC) [Entitic vol] 92.6 fL Normal 80.0-100.0 [facility] Comment on above: Order Comment: Speci men Type: BLOOD SPECIMENOrdering Facility: [facility] Address: [address] [place] [address] Performed By: #### 5 7021-8 ####[facility] LABCLIA [id number] [place] [address] [place] Monocytes (Bld) [#/Vol] 0.84 10*3/uL Normal <0.87 [facility] Comment on above: Order Comment: Speci men Type: BLOOD SPECIMENOrdering Facility: [facility] Address: [address] [place] [address] Performed By: #### 5 7021-8 ####[facility] LABIA [id number] [place] [address] [place] Monocytes/100 WBC (Bld) 10.4 % Normal [facility] Comment on above: Order Comment: Speci men Type: BLOOD SPECIMENOrdering Facility: [facility] Address: [address] [place] [address] Performed By: #### 5 7021-8 ####[facility] LABCLIA [id number] [place] [address] [place] Neutrophils (Bld) [#/Vol] 6.02 10*3/uL Normal 1.45-7.50 [facility] Comment on above: Order Comment: Speci men Type: BLOOD SPECIMENOrdering Facility: [facility] Address: [address] [place] [address] Performed By: #### 5 7021-8 ####[facility] LABCLIA [id number] [place] [address] [place] Neutrophils/100 WBC (Bld) 74.8 % Normal [facility] Comment on above: Order Comment: Speci men Type: BLOOD SPECIMENOrdering Facility: [facility] Address: [address] [place] [address] Performed By: #### 5 7021-8 ####[facility] LABIA [id number] [place] [address] [place] Nucleated RBC (Bld) [#/Vol] 10*3/uL Normal <0.01 [facility] Comment on above: Order Comment: Speci men Type: BLOOD SPECIMENOrdering Facility: [facility] Address: [address] [place] [address] Performed By: #### 5 7021-8 ####[facility] LABIA [id number] [place] [address] [place] Nucleated RBC/100 WBC (Bld) [Ratio] 0.0 /100 WBC Normal [facility] Comment on above: Order Comment: Speci men Type: BLOOD SPECIMENOrdering Facility: [facility] Address: [address] [place] [address] Performed By: #### 5 7021-8 ####[facility] LABCLIA [id number] [place] [address] [place] Platelet mean volume (Bld) [Entitic vol] 11.6 fL Normal 9.0-12.7 [facility] Comment on above: Order Comment: Speci men Type: BLOOD SPECIMENOrdering Facility: [facility] Address: [address] [place] [address] Performed By: #### 5 7021-8 ####[facility] LABCLIA [id number] [place] [address] [place] Platelets (Bld) [#/Vol] 209 10*3/uL Normal 150-400 [facility] Comment on above: Order Comment: Speci men Type: BLOOD SPECIMENOrdering Facility: [facility] Address: [address] [place] [address] Performed By: #### 5 7021-8 ####[facility] LABCLIA [id number] [place] [address] [place] RBC (Bld) [#/Vol] 5.14 10*6/uL Normal 4.20-6.00 [facility] Comment on above: Order Comment: Speci men Type: BLOOD SPECIMENOrdering Facility: [facility] Address: [address] [place] [address] Performed By: #### 5 7021-8 ####[facility] LABCLIA [id number] [place] [address] [place] WBC (Bld) [#/Vol] 8.05 10*3/uL Normal 3.70-11.00 [facility] Comment on above: Order Comment: Speci men Type: BLOOD SPECIMENOrdering Facility: [facility] Address: [address] [place] [address] Performed By: #### 5 7021-8 ####[facility] LABCLIA [id number] [place] [address] [place] Comprehensive metabolic 2000 panelon 12-27-2023 Albumin [Mass/Vol] 4.3 g/dL Normal 3.9-4.9 [facility] Comment on above: Order Comment: Speci men Type: BLOOD SPECIMENOrdering Facility: [facility] Address: [address] [place] [address] Performed By: #### 2 4323-8, 63739-0, 18806-9 ####[facility] LABCLIA [id number] [place] [address] [place] ALP [Catalytic activity/Vol] 57 U/L Normal 38-113 [facility] Comment on above: Order Comment: Speci men Type: BLOOD SPECIMENOrdering Facility: [facility] Address: [address] [place] [address] Performed By: #### 2 4323-8, 46610-8, ####[facility] LABCLIA [id number] [place] [address] [place] ALT [Catalytic activity/Vol] 15 U/L Normal 10-54 [facility] Comment on above: Order Comment: Speci men Type: BLOOD SPECIMENOrdering Facility: [facility] Address: [address] [place] [address] Performed By: #### 2 4323-8, , ####[facility] LABCLIA [id number] [place] [address] [place] Anion gap [Moles/Vol] 13 mmol/L Normal 9-18 [facility] Comment on above: Order Comment: Speci men Type: BLOOD SPECIMENOrdering Facility: [facility] Address: [address] [place] [address] Performed By: #### 2 4323-8, , ####[facility] LABCLIA [id number] [place] [address] [place] AST [Catalytic activity/Vol] 19 U/L Normal 14-40 [facility] Comment on above: Order Comment: Speci men Type: BLOOD SPECIMENOrdering Facility: [facility] Address: [address] [place] [address] Performed By: #### 2 4323-8, , ####[facility] LABCLIA [id number] [place] [id number] [place] Bilirubin [Mass/Vol] 1.3 mg/dL Normal 0.2-1.3 [facility] Comment on above: Order Comment: Speci men Type: BLOOD SPECIMENOrdering Facility: [facility] Address: [address] [place] [address] Performed By: #### 2 4323-8, , ####[facility] LABCLIA [id number] [address] [address] [place] Calcium [Mass/Vol] 9.0 mg/dL Normal 8.5-10.2 [facility] Comment on above: Order Comment: Speci men Type: BLOOD SPECIMENOrdering Facility: [facility] Address: [address] [place], [place] [address] Performed By: #### 2 4323-8, , ####[facility] LABCLIA [id number] [place] [id number] [place] Chloride [Moles/Vol] 106 mmol/L High 97-105 [facility] Comment on above: Order Comment: Speci men Type: BLOOD SPECIMENOrdering Facility: [facility] Address: [address] [place] [address] Performed By: #### 2 4323-8, , ####[facility] LABCLIA [id number] [place] [id number] [place] CO2 [Moles/Vol] 23 mmol/L Normal 22-30 [facility] Comment on above: Order Comment: Speci men Type: BLOOD SPECIMENOrdering Facility: [facility] Address: [address] [place] [address] Performed By: #### 2 4323-8, , ####[facility] LABCLIA [id number] [address] [address] [place] Creatinine [Mass/Vol] 1.00 mg/dL Normal 0.73-1.22 [facility] Comment on above: Order Comment: Speci men Type: BLOOD SPECIMENOrdering Facility: [facility] Address: [address] [place] [address] Performed By: #### 2 4323-8, 55061-8, 64451-2 ####[facility] LABCLIA [id number] [place] [id number] [place] Creatinine and Glomerular filtration rate.predicted panel (S/P/Bld) 73 mL/min/1.73m??? Normal >=60 [facility] Comment on above: Order Comment: Kailey simons Type: BLOOD SPECIMENOrdering Facility: [facility] Address: [address] [place] [address] Result Comment: Louann mated Glomerular Filtration Rate [...] actual GFR. Performed By: #### 2 4323-8, 46061-5, 00297-6 ####[facility] LABCLIA [id number] [place] [id number] [place] Glucose [Mass/Vol] 93 mg/dL Normal 74-99 [facility] Comment on above: Order Comment: Kailey simons Type: BLOOD SPECIMENOrdering Facility: [facility] Address: [address] [place] [address] Result Comment: The [place] Diabetes [employer] (ADA) provides guidance for cutoff [...] Standards of Medical Care in Diabetes 2016, [place] [employer]. Diabetes Care. 2016.39(Suppl 1). Performed By: #### 2 4323-8, 87593-2, 41164-7 ####[facility] LABCLIA [id number] [address] [address] [place] Potassium [Moles/Vol] 4.0 mmol/L Normal 3.7-5.1 [facility] Comment on above: Order Comment: Speci men Type: BLOOD SPECIMENOrdering Facility: [facility] Address: [address] [place] [address] Performed By: #### 2 4323-8, , 08769-5 ####[facility] LABCLIA [id number] [place] [address] [place] Protein [Mass/Vol] 6.0 g/dL Low 6.3-8.0 [facility] Comment on above: Order Comment: Speci men Type: BLOOD SPECIMENOrdering Facility: [facility] Address: [address] [place] [address] Performed By: #### 2 4323-8, , 64372-9 ####[facility] LABIA [id number] [place] [address] [place] Sodium [Moles/Vol] 142 mmol/L Normal 136-144 [facility] Comment on above: Order Comment: Speci men Type: BLOOD SPECIMENOrdering Facility: [facility] Address: [address] [place] [address] Performed By: #### 2 4323-8, , 05242-2 ####[facility] LABCLIA [id number] [address] [address] [place] Urea nitrogen [Mass/Vol] 15 mg/dL Normal 9-24 [facility] Comment on above: Order Comment: Speci men Type: BLOOD SPECIMENOrdering Facility: [facility] Address: [address] [place] [address] Performed By: #### 2 4323-8, , ####[facility] LABCLIA [id number] [place] [address] [place] Lipid 1996 panelon 4 Cholesterol [Mass/Vol] 131 mg/dL Normal <200 [facility] Comment on above: Order Comment: Speci men Type: BLOOD SPECIMENOrdering Facility: [facility] Address: [facility] [place] [address] Result Comment: <200 mg/dL, Desirable 200-239 mg/dL, Borderline high >239 mg/dL, High Performed By: #### 2 4323-8, , ####[facility] LABCLIA [id number] [address] [place] Cholesterol in HDL [Mass/Vol] 38 mg/dL Low >39 [facility] Comment on above: Order Comment: Speci men Type: BLOOD SPECIMENOrdering Facility: [facility] Address: [address] [place] [address] Result Comment: 40-5 9 mg/dL, Acceptable >59 mg/dL, High: Negative risk factor for coronary heart disease <40 mg/dL, Low: Positive risk factor for coronary heart disease Performed By: #### 2 4323-8, , ####[facility] LABCLIA [id number] [address] [place] Cholesterol in LDL [Mass/Vol] 75 mg/dL Normal <100 [facility] Comment on above: Order Comment: Speci men Type: BLOOD SPECIMENOrdering Facility: [facility] Address: [address] [place] [address] Result Comment: <100 mg/dL, Optimal 100-129 mg/dL, Near optimal/above optimal 130-159 mg/dL, Borderline high 160-189 mg/dL, High >189 mg/dL, Very high Secondary prevention optimal LDL Cholesterol levels are recommended to be < 70 mg/dL Performed By: #### 2 4323-8, , ####[facility] LABCLIA [id number] [place] [address] [place] Cholesterol in LDL/Cholesterol in HDL [Mass ratio] 1.97 {ratio} Normal <2.54 [facility] Comment on above: Order Comment: Speci men Type: BLOOD SPECIMENOrdering Facility: [facility] Address: [address] [place] [address] Result Comment: Refe rence: 1. National Cholesterol Education Program ATP III Guideline At-A-Glance Quick Desk Reference: National Heart, Lung, and Blood [place]. National Institutes of Health. 2001: NIH Publication No. 01-3305. 2. An International Atherosclerosis Society position paper: global recommendations for the management of dyslipidemia: executive summary, Atherosclerosis. 2014: 232(2):410-413. Performed By: #### 2 4323-8, , ####[facility] LABCLIA [id number] [place] [address] [place] Cholesterol in VLDL [Mass/Vol] 18 mg/dL Normal <30 [facility] Comment on above: Order Comment: Speci men Type: BLOOD SPECIMENOrdering Facility: [facility] Address: [address] [place] [address] Performed By: #### 2 4323-8, , ####[facility] LABCLIA [id number] [place] [address] [place] Cholesterol non HDL [Mass/Vol] 93 mg/dL Normal <130 [facility] Comment on above: Order Comment: Speci men Type: BLOOD SPECIMENOrdering Facility: [facility] Address: [address] [place] [address] Result Comment: <130 mg/dL, Optimal 130-159 mg/dL, Near optimal/above optimal 160-189 mg/dL, Borderline high 190-219 mg/dL, High >219 mg/dL, Very high Secondary prevention optimal non HDL Cholesterol levels are recommended to be <100 mg/dL Performed By: #### 2 4323-8, , 74245-8 ####[facility] LABCLIA [id number] [address] [address] [place] Cholesterol.total/Chol esterol in HDL [Mass ratio] 3.45 {ratio} Normal <5.10 [facility] Comment on above: Order Comment: Speci men Type: BLOOD SPECIMENOrdering Facility: [facility] Address: [address] [place] [address] Performed By: #### 2 4323-8, , 54403-2 ####[facility] LABIA [id number] [place] [address] [place] FASTING TIME 12 hrs Normal [facility] Comment on above: Order Comment: Speci men Type: BLOOD SPECIMENOrdering Facility: [facility] Address: [address] [place] [address] Performed By: #### 2 4323-8, , ####[facility] LABIA [id number] [place] [address] [place] Triglyceride [Mass/Vol] 91 mg/dL Normal <150 [facility] Comment on above: Order Comment: Speci men Type: BLOOD SPECIMENOrdering Facility: [facility] Address: [address] [place] [address] Result Comment: <150 mg/dL, Normal 150-199 mg/dL, Borderline high 200-499 mg/dL, High >499 mg/dL, Very high Performed By: #### 2 4323-8, , 09266-3 ####[facility] LABIA [id number] [place] [id number] [place] Magnesium SerPl-mCncon 12-26 Magnesium [Mass/Vol] 2.1 mg/dL Normal 1.7-2.3 [facility] Comment on above: Order Comment: Speci men Type: BLOOD SPECIMENOrdering Facility: [facility] Address: [address] [place] [address] Performed By: #### 2 4323-8, 78659-4, 61629-3 ####[facility] SUZANNE [id number] [place] [address] [place] CARLOVon 12-25-2023 CNOV Office Visit (FAMPWS ) CLARK LYLES ([id number]) 1935 M Date Time Provider Department 12/25/23 9:00 AM [facility] During your visit today, we recorded the following information about you: Pulse Respiration Blood pressure Weight 61/minute 16/minute 120/68 72.1 kg Radha Durbin PA-C 12/26/2023 2:22 PM Signed 88 year old male with c/o here for follow up. 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 08/02/2023 echocardiogram [facility]: LV size WNL, mild concentric LVH, [...] to suggest ischemia. 02/08/2022 last cardiology visit [place]: [employer] feels he is doing well and stable. [...] Lymph 1.00 - 4.00 k/uL 0.81 (L) [place]% % 9.0 Abs [place] <0.87 k/uL 0.99 (H) Eosin% % 2.6 [...] Ratio <5.10 (more content not included)... Normal [facility] Absolute lymphocyte countOrd ered By: Jerrell Faith on 08-04-2023 Lymphocytes Auto (Unsp spec) [#/Vol] 0.71 10*3/uL 0.83-4.51 [facility] Basophil percentageOrdered B y: Jerrell Faith on 08-04-2023 Basophils/100 WBC (Bld) 0.4 % 0-1 [facility] Chloride [Moles/Vol] 113 mmol/L 98-107 [facility] Eosinophils/100 WBC (Bld) 4.1 % 0-5 [facility] Glucose [Mass/Vol] 96 mg/dL 74-106 [facility] Neutrophils (Bld) [#/Vol] 6.1 10*3/uL 2.0-7.7 [facility] Neutrophils/100 WBC (Bld) 76.4 % 47-70 [facility] Potassium [Moles/Vol] 4.1 mmol/L 3.5-5.1 [facility] Sodium [Moles/Vol] 141 mmol/L 136-145 [facility] WBC (Bld) [#/Vol] 8.0 10*3/uL 4.4-11.0 [facility] Blood erythrocytes count (nu mber/volume)Ordered By: Jerrell Faith on 08-04-2023 RBC (Bld) [#/Vol] 4.52 10*6/uL 4.6-6.[address] [facility] Blood hemoglobin measurement (mass/volume)Ordered By: Jerrell Faith on 08-04-2023 Hemoglobin (Bld) [Mass/Vol] 13.4 g/dL 13.0-16.5 [facility] Blood lymphocytes/100 leukoc ytesOrdered By: Jerrell Faith on 08-04-2023 Lymphocytes/100 WBC (Bld) 8.9 % 19-41 [facility] Blood monocytes/100 leukocyt esOrdered By: Jerrell Faith on 08-04-2023 Monocytes/100 WBC (Bld) 9.4 % 0-10 [facility] Blood platelet mean volumeOr dered By: Jerrell Faith on 08-04-2023 Platelet mean volume (Bld) [Entitic vol] 10.7 fL 6.2-12.0 [facility] Determination of erythrocyte mean corpuscular volume (MCV)Ordered By: Jerrell Faith on 08-04-2023 MCV (RBC) [Entitic vol] 92.3 fL 80-94 [facility] Hematocrit Auto (Bld) [Volum e fraction]Ordered By: Jerrell Faith on 08-04-2023 Hematocrit (Bld) [Volume fraction] 41.7 % 40-54 [facility] Laboratory - Chemistry and C hemistry - challengeOrdered By: Jerrell Faith on 08-04-2023 CO2 [Moles/Vol] 25.0 mmol/L 21.0-32.0 [facility] Urea nitrogen/Creatinine [Mass ratio] 22.1 mg/mg 10-20 [facility] Laboratory - Hematology and Cell countsOrdered By: Jerrell Faith on 08-04-2023 Erythrocyte distribution width (RBC) [Entitic vol] 49.3 fL 35.1-43.9 [facility] Erythrocyte distribution width (RBC) [Ratio] 14.6 % 11.6-14.6 [facility] Immature granulocytes/100 WBC (Bld) 0.800 % 0.0-0.9 [facility] Comment on above: IG% - Immature Granu locytes (promyelocytes, myelocytes and metamyelocytes) > 1% indicates that a LEFT SHIFT is Present. MCH (RBC) [Entitic mass] 29.6 pg 27.0-32.0 [facility] Nucleated RBC/100 WBC (Bld) [Ratio] 0 % 0-5 [facility] MCHC Auto (RBC) [Mass/Vol]Or dered By: Jerrell Faith on 08-04-2023 MCHC (RBC) [Mass/Vol] 32.1 g/dL 32-36 [facility] No Panel InformationOrdered By: Jerrell Faith on 08-04-2023 Estimated Creatinine Clearance Calc 66.51 ml/min [facility] Estimated GFR (MDRD) Amer 115 mL/min >60 [facility] Comment on above: GFR Calc Estimated GFR (MDRD) Non-Af Amer 95 mL/min >60 [facility] Comment on above: Non- GFR Calc Platelets bldOrdered By: Ismael Faith on 08-04-2023 Platelets (Bld) [#/Vol] 186 10*3/uL 150-450 [facility] Serum or plasma calcium nichole urement (mass/volume)Ordered By: Jerrell Faith on 08-04-2023 Calcium [Mass/Vol] 8.9 mg/dL 8.5-10.1 [facility] Serum or plasma creatinine m easurement (mass/volume)Ordered By: Jerrell Faith on 08-04-2023 Creatinine [Mass/Vol] 0.82 mg/dL 0.70-1.30 [facility] Comment on above: The validity of the calculated GFR & GFRAA in patients over 70 years has not been determined. Clinical correlation is essential. Serum or plasma urea nitroge n measurement (mass/volume)Ordered By: Jerrell Faith on 08-04-2023 Urea nitrogen [Mass/Vol] 18 mg/dL 7-18 [facility] Thin prep Papanicolaou smear with manual screeningOrdered By: Jerrell Faith on 08-04-2023 Thin prep Papanicolaou smear with manual screening 3 5-15 [facility] Basophil percentageOrdered B y: Jerrell Faith on 08-03-2023 Basophil percentage 2.1 mg/dL 2.5-4.[address] [facility] Bilirubin [Mass/Vol] 0.30 mg/dL 0.20-1.00 [facility] Comment on above: For patients on eltr ombopag therapy, use of Dimension May TBIL is not recommended. Protein [Mass/Vol] 5.6 g/dL 6.4-8.2 [facility] Clostridium difficile detect ion by polymerase chain reactionOrdered By: Jerrell Faith on 08-03-2023 C. difficile DNA CAMERON+probe Ql (Unsp spec) [facility] Laboratory - Chemistry and C hemistry - challengeOrdered By: Jerrell Faith on 08-03-2023 ALP [Catalytic activity/Vol] 46 U/L 45-117 [facility] ALT [Catalytic activity/Vol] 18 U/L 16-61 [facility] Globulin (S) [Mass/Vol] 2.6 g/dL 2.2-4.2 [facility] [facility] Magnesium [Mass/Vol] 1.9 mg/dL 1.6-2.6 [facility] Serum or plasma albumin nichole urement (mass/volume)Ordered By: Jerrell Faith on 08-03-2023 Albumin [Mass/Vol] 3.0 g/dL 3.2-5.0 [facility] Serum or plasma albumin/glob ulin mass ratioOrdered By: Jerrell Faith on 08-03-2023 Albumin/Globulin [Mass ratio] 1.2 {ratio} 0.9-2.4 [facility] Thin prep Papanicolaou smear with manual screeningOrdered By: Jerrell Faith on 08-03-2023 Thin prep Papanicolaou smear with manual screening 10 U/L 15-37 [facility] Blood manual differential co mment interpretation (narrative result)Ordered By: Jasmine Tan on 08-02-2023 Manual differential comment Héctor (Bld) [Interp] COMMENT [facility] Comment on above: LYMPHOPENIA. Urine Legionella pneumophila antigen detectionOrdered By: Jasmine Tan on 08-02-2023 L. pneumophila Ag Ql (U) [facility] Absolute lymphocyte countOrd ered By: Lewis Sutton on 08-01-2023 Lymphocytes Auto (Unsp spec) [#/Vol] 0.52 10*3/uL 0.83-4.51 [facility] Basophil percentageOrdered B y: Lewis Sutton on 08-01-2023 Basophils/100 WBC (Bld) 0.2 % 0-1 [facility] Chloride [Moles/Vol] 103 mmol/L 98-107 [facility] Eosinophils/100 WBC (Bld) 0.9 % 0-5 [facility] Glucose [Mass/Vol] 117 mg/dL 74-106 [facility] Comment on above: Fasting Glucose resu lt from 100 to 125 mg/dL suggests IMPAIRED HOMEOSTASIS per A.D.A. criteria. Neutrophils (Bld) [#/Vol] 7.6 10*3/uL 2.0-7.7 [facility] Neutrophils/100 WBC (Bld) 82.0 % 47-70 [facility] Potassium [Moles/Vol] 3.1 mmol/L 3.5-5.1 [facility] Sodium [Moles/Vol] 136 mmol/L 136-145 [facility] WBC (Bld) [#/Vol] 9.2 10*3/uL 4.4-11.0 [facility] Blood erythrocytes count (nu mber/volume)Ordered By: Lewis Sutton on 08-01-2023 RBC (Bld) [#/Vol] 4.78 10*6/uL 4.6-6.[address] [facility] Blood hemoglobin measurement (mass/volume)Ordered By: Lewis Sutton on 08-01-2023 Hemoglobin (Bld) [Mass/Vol] 14.8 g/dL 13.0-16.5 [facility] Blood lymphocytes/100 leukoc ytesOrdered By: Lewis Sutton on 08-01-2023 Lymphocytes/100 WBC (Bld) 5.7 % 19-41 [facility] Blood manual differential co mment interpretation (narrative result)Ordered By: Lewis Sutton on 08-01-2023 Manual differential comment Héctor (Bld) [Interp] SCANNED [facility] Blood monocytes/100 leukocyt esOrdered By: Lewis Sutton on 08-01-2023 Monocytes/100 WBC (Bld) 10.3 % 0-10 [facility] Blood platelet mean volumeOr dered By: Lewis Sutton on 08-01-2023 Platelet mean volume (Bld) [Entitic vol] 11.5 fL 6.2-12.0 [facility] Determination of erythrocyte mean corpuscular volume (MCV)Ordered By: Lewis Sutton on 08-01-2023 MCV (RBC) [Entitic vol] 89.5 fL 80-94 [facility] Hematocrit Auto (Bld) [Volum e fraction]Ordered By: Lewis Sutton on 08-01-2023 Hematocrit (Bld) [Volume fraction] 42.8 % 40-54 [facility] Influenza virus A and B and SARS-CoV-2 (COVID-19) Ag panel - Upper respiratory specimOrdered By: Lewis Sutton on 08-01-2023 SARS-CoV-2 (COVID-19) RNA CAMERON+probe Ql (Resp) [facility] Laboratory - Chemistry and C hemistry - challengeOrdered By: Lewis Sutton on 08-01-2023 CO2 [Moles/Vol] 26.0 mmol/L 21.0-32.0 [facility] Natriuretic peptide B (Bld) [Mass/Vol] 198.3 pg/mL 0-100 [facility] Urea nitrogen/Creatinine [Mass ratio] 11.8 mg/mg 10-20 [facility] Laboratory - Hematology and Cell countsOrdered By: Lewis Sutton on 08-01-2023 Erythrocyte distribution width (RBC) [Entitic vol] 46.8 fL 35.1-43.9 [facility] Erythrocyte distribution width (RBC) [Ratio] 14.3 % 11.6-14.6 [facility] Immature granulocytes/100 WBC (Bld) 0.900 % 0.0-0.9 [facility] Comment on above: IG% - Immature Granu locytes (promyelocytes, myelocytes and metamyelocytes) > 1% indicates that a LEFT SHIFT is Present. MCH (RBC) [Entitic mass] 31.0 pg 27.0-32.0 [facility] Nucleated RBC/100 WBC (Bld) [Ratio] 0 % 0-5 [facility] - Microbiology an d Antimicrobial susceptibilityOrdered By: Jasmine Tan on 08-01-2023 SARS-CoV-2 (COVID-19) RNA CAMERON+probe Ql (Unsp spec) [facility] MCHC Auto (RBC) [Mass/Vol]Or dered By: Lewis Sutton on 08-01-2023 MCHC (RBC) [Mass/Vol] 34.6 g/dL 32-36 [facility] No Panel InformationOrdered By: Lewis Sutton on 08-01-2023 D-Dimer Quantitative (PE/DVT) 0.47 FEU/ug/m 0.27-0.49 [facility] Comment on above: NORMAL D-Dimer level (<0.50) indicates no DVT or PE. Estimated Creatinine Clearance Calc 50.69 ml/min [facility] Estimated GFR (MDRD) Amer 82 mL/min >60 [facility] Comment on above: GFR Calc Estimated GFR (MDRD) Non-Af Amer 68 mL/min >60 [facility] Comment on above: Non- GFR Calc Troponin I High Sensitivity 8 pg/mL 3.0-78.0 [facility] Comment on above: Please Note: [place] t Units and Gender Specific Reference Ranges. For more information see Policy Stat Procedure May High Sensitivity Troponin (TNIH) and attachments. Platelets bldOrdered By: Gabby Sutton on 08-01-2023 Platelets (Bld) [#/Vol] 175 10*3/uL 150-450 [facility] Respiratory pathogens detect ion panel by molecular detection methodOrdered By: Jasmine Tan on 08-01-2023 Respiratory pathogens DNA and RNA panel CAMERON+probe (Resp) [facility] Serum or plasma calcium nichole urement (mass/volume)Ordered By: Lewis Sutton on 08-01-2023 Calcium [Mass/Vol] 8.8 mg/dL 8.5-10.1 [facility] Serum or plasma creatinine m easurement (mass/volume)Ordered By: Lewis Sutton on 08-01-2023 Creatinine [Mass/Vol] 1.10 mg/dL 0.70-1.30 [facility] Comment on above: The validity of the calculated GFR & GFRAA in patients over 70 years has not been determined. Clinical correlation is essential. Serum or plasma urea nitroge n measurement (mass/volume)Ordered By: Lewis Sutton on 08-01-2023 Urea nitrogen [Mass/Vol] 13 mg/dL 7-18 [facility] Serum procalcitonin measurem entOrdered By: Jasmine Tan on 08-01-2023 Procalcitonin [Mass/Vol] 0.07 ng/mL 0.00-0.09 [facility] Comment on above: A procalcitonin (PCT [...] Thin prep Papanicolaou smear with manual screening 7 5-15 [facility] CBC W Auto Differential pane l (Bld)on 06-28-2023 Basophils (Bld) [#/Vol] 0.05 10*3/uL <0.11 k/uL [facility] Basophils/100 WBC (Bld) 0.5 % [facility] Differential cell count method Nom (Bld) Auto [facility] Eosinophils (Bld) [#/Vol] 0.29 10*3/uL <0.46 k/uL [facility] Eosinophils/100 WBC (Bld) 2.6 % [facility] Erythrocyte distribution width (RBC) [Ratio] 13.9 % 11.5 - 15.0 % [facility] Hematocrit (Bld) [Volume fraction] 50.0 % 39.0 - 51.0 % [facility] Hemoglobin (Bld) [Mass/Vol] 16.7 g/dL 13.0 - 17.0 g/dL [facility] Immature granulocytes (Bld) [#/Vol] 0.10 10*3/uL High <0.10 k/uL [facility] Immature granulocytes/100 WBC (Bld) 0.9 % [facility] Lymphocytes (Bld) [#/Vol] 0.81 10*3/uL Low 1.00 - 4.00 k/uL [facility] Lymphocytes/100 WBC (Bld) 7.4 % [facility] MCH (RBC) [Entitic mass] 31.0 pg 26.0 - 34.0 pg [facility] MCHC (RBC) [Mass/Vol] 33.4 g/dL 30.5 - 36.0 g/dL [facility] MCV (RBC) [Entitic vol] 92.9 fL 80.0 - 100.0 fL [facility] Monocytes (Bld) [#/Vol] 0.99 10*3/uL High <0.87 k/uL [facility] Monocytes/100 WBC (Bld) 9.0 % [facility] Neutrophils (Bld) [#/Vol] 8.78 10*3/uL High 1.45 - 7.50 k/uL [facility] Neutrophils/100 WBC (Bld) 79.6 % [facility] Nucleated RBC (Bld) [#/Vol] <0.01 k/uL [facility] Nucleated RBC/100 WBC (Bld) [Ratio] 0.0 /100 WBC [facility] Platelet mean volume (Bld) [Entitic vol] 11.6 fL 9.0 - 12.7 fL [facility] Platelets (Bld) [#/Vol] 229 10*3/uL 150 - 400 k/uL [facility] RBC (Bld) [#/Vol] 5.38 10*6/uL 4.20 - 6.00 m/uL [facility] WBC (Bld) [#/Vol] 11.02 10*3/uL High 3.70 - 11.00 k/uL [facility] Comprehensive metabolic 2000 panelon 06-28-2023 Albumin [Mass/Vol] 4.3 g/dL 3.9 - 4.9 g/dL [facility] ALP [Catalytic activity/Vol] 53 U/L 38 - 113 U/L [facility] ALT [Catalytic activity/Vol] 26 U/L 10 - 54 U/L [facility] Anion gap [Moles/Vol] 9 mmol/L 9 - 18 mmol/L [facility] AST [Catalytic activity/Vol] 21 U/L 14 - 40 U/L [facility] Bilirubin [Mass/Vol] 1.1 mg/dL 0.2 - 1 .3 mg/dL [facility] Calcium [Mass/Vol] 9.8 mg/dL 8.5 - 10. 2 mg/dL [facility] Chloride [Moles/Vol] 103 mmol/L 97 - 10 5 mmol/L [facility] CO2 [Moles/Vol] 27 mmol/L 22 - 30 mmol/L [facility] Creatinine [Mass/Vol] 1.11 mg/dL 0.73 - 1.22 mg/dL [facility] Estimated Glomerular Filtration Rate 65 mL/min/1.73m >=60 mL/min/1.7 3m [facility] Glucose [Mass/Vol] 94 mg/dL 74 - 99 mg/dL [facility] Potassium [Moles/Vol] 4.1 mmol/L 3.7 - 5.1 mmol/L [facility] Protein [Mass/Vol] 6.3 g/dL 6.3 - 8.0 g/dL [facility] Sodium [Moles/Vol] 139 mmol/L 136 - 144 mmol/L [facility] Urea nitrogen [Mass/Vol] 16 mg/dL 9 - 24 mg/dL [facility] CTA ABD/PEL W IVCONon 2022 [facility] XR LUMBAR GENERAL 3V AP/LAT/ L5-S1on 01-31-2023 [facility] XR Lumbar spine 3 Viewson IMPRESSION: NO EVIDE NCE OF FRACTURE Vice President Media Relations: GINNA Transcribe Date/Time: Jan 31 2023 11:11A Dictated by : RIVERA OLIVAS MD This examination was interpreted and the report reviewed and electronically signed by: RIVERA OLIVAS MD on Jan 31 2023 11:13AM [facility] DIVISION OF RADIOLOGY * * *Final Report* [...] calcifications are noted. DIVISION OF RADIOLOGY Provider, [facility] - 01/31/2023 * * *Final Report* * [...] noted. IMPRESSION IMPRESSION: NO EVIDENCE OF FRACTURE Vice President Media Relations: PSCAd Transcribe Date/Time: Jan 31 2023 11:11A Dictated by : RIVERA OLIVAS MD This examination was interpreted and the report reviewed and electronically signed by: RIVERA OLIVAS MD on Jan 31 2023 11:13AM EST [facility] Radiology Study observation (narrative) [facility] XR Lumbar spine 3 ViewsOrder ed By: Ccf Provider on 01-31-2023 [facility] UA DIP, URINE (POC)on 2022 BILIRUBIN UA (POCT) Negative Negative Carm[facility] CLARITY UA (POCT) [facility] COLOR UA (POCT) Yellow [facility] GLUCOSE UA (POCT) Negative Negative mg/dL [facility] HEMOGLOBIN/BLOOD UA (POCT) Negative Negative [facility] KETONE UA (POCT) Negative Negative mg/dL [facility] LEUKOCYTES UA (POCT) Negative Negative [facility] NITRITE UA (POCT) Negative Negative [facility] PH UA (POCT) 5.5 4.5 - 8.0 [facility] Protein Ql (U) Negative Negative mg/dL [facility] SPECIFIC GRAVITY UA (POCT) 1.015 1.005 - 1.030 [facility] UROBILINOGEN UA (POCT) 0.2 E.U./dL Stephany l E.U./dL [facility] Office Visit: PAD, recheck diane arriola 05-31-2017 Documentation of current medications (procedure) Done Invalid Interpretation Code [facility] [employer] Work Phone: Fall risk assessment No Invalid Interpretation Code [facility] [employer] Work Phone: Tobacco smoking status NHIS Never Invalid Interpretation Code [facility] [employer] Work Phone: Tobacco use CPHS Former smoker Invalid Interpretation Code [facility] [employer] Work Phone: Lab Report: Basic Metabolic Profile (BMP)on 05-18-2017 Anion gap 9 mmol/L Invalid Interpretation Code 5-15 [facility] [employer] Work Phone: [phone] Anion gap 4 molar conc 9 Invalid Interpretation Code 15 [facility] [employer] Work Phone: Calcium mass conc 8.8 mg/dL Invalid Interpretation Code 8.5-10.1 [facility] [employer] Work Phone: Chloride molar conc 108 mmol/L High 98-107 [facility] [employer] Work Phone: CO2 23.0 mmol/L Invalid Interpretation Code 21.0-32.0 [facility] [employer] Work Phone: [phone] CO2 ppres (BldV) 23.0 mmol/L Invalid Interpretation Code 21.0-32.0 [facility] [employer] Work Phone: Creatinine mass conc 0.80 mg/dL Invalid Interpretation Code 0.70-1.30 [facility] [employer] Work Phone: eGFR (non-black) 120 mL/min/{1.73_m2} Invalid Interpretation Code >60 [facility] [employer] Work Phone: EST GFR - AA 120 mL/min Invalid Interpretation Code >60 [facility] [employer] Work Phone: GFR/1.73 sq M predicted among non-blacks MDRD vol rate/area (S/P/Bld) 99 mL/min/{1.73_m2} Invalid Interpretation Code >60 [facility] [employer] Work Phone: Glucose mass conc 120 mg/dL High 70-110 [facility] [employer] Work Phone: Potassium molar conc 3.6 mmol/L Invalid Interpretation Code 3.5-5.1 [facility] [employer] Work Phone: Sodium molar conc 140 mmol/L Invalid Interpretation Code 136-145 [facility] [employer] Work Phone: Urea nitrogen mass conc 13 mg/dL Invalid Interpretation Code 7-18 [facility] [employer] Work Phone: Urea nitrogen/Creatinine mass ratio 16.3 RATIO Invalid Interpretation Code 05-18 [facility] [employer] Work Phone: Office Visit: Awilda 05-08-20 17 Documentation of current medications (procedure) Done Invalid Interpretation Code [facility] [employer] Work Phone: Fall risk assessment No Invalid Interpretation Code [facility] [employer] Work Phone: Protein mass conc Done Invalid Interpretation Code [facility] [employer] Work Phone: Tobacco smoking status NHIS Never Invalid Interpretation Code [facility] [employer] Work Phone: Tobacco smoking status NHIS Former smoker Invalid Interpretation Code [facility] [employer] Work Phone: Tobacco use HS Former smoker Invalid Interpretation Code [facility] [employer] Work Phone: Vital Signs Date Time Vital Sign Value Performing Clinician Facility 02-08-2025 20:35-0400 Inhaled oxygen flow rate 8 L/min Brigitte Suppan VOICE INTERCEPT TECHNICIAN Work Phone: [facility] 02-08-2025 20:35-0400 SaO2% (BldA) [Mass fraction] 90 % Brigitte Suppan VOICE INTERCEPT TECHNICIAN Work Phone: [facility] 02-08-2025 20:08-0400 Body height 177.8 cm Brigitte Suppan VOICE INTERCEPT TECHNICIAN Work Phone: [phone] [place] [address] 02-08-2025 20:08-0400 Body mass index (BMI) [Ratio] 22.1 kg/m2 Brigitte Suppan VOICE INTERCEPT TECHNICIAN Work Phone: [facility] 02-08-2025 20:08-0400 Body weight 70 kg Brigitte Suppan VOICE INTERCEPT TECHNICIAN Work Phone: [facility] 02-08-2025 19:45-0400 Body temperature 98.3 [degF] Brigitte Suppan VOICE INTERCEPT TECHNICIAN Work Phone: [phone] [place] [address] 02-08-2025 19:45-0400 Diastolic blood pressure 65 mm[Hg] Brigitte Suppan VOICE INTERCEPT TECHNICIAN Work Phone: [facility] 02-08-2025 19:45-0400 Heart rate 58 /min Brigitte Suppan VOICE INTERCEPT TECHNICIAN Work Phone: [facility] 02-08-2025 19:45-0400 Respiratory rate 18 /min Brigitte Segal VOICE INTERCEPT TECHNICIAN Work Phone: [facility] 02-08-2025 19:45-0400 Systolic blood pressure 128 mm[Hg] Brigitte Segal VOICE INTERCEPT TECHNICIAN Work Phone: [facility] 10-16-2024 08:56-0400 Body height 177.[address] Neo Tejeda DO Work Phone: [facility] 10-16-2024 08:56-0400 Body mass index (BMI) [Ratio] 23.8 kg/m2 Dr. Neo Tejeda DO Work Phone: [phone] [place] [address] 10-16-2024 08:56-0400 Body temperature 97.3 [degF] Dr. Neo Tejeda DO Work Phone: [phone] [place] [address] 10-16-2024 08:56-0400 Body weight 75.[address] Neo Tejeda DO Work Phone: 2([phone] [place] [address] 10-16-2024 08:56-0400 Diastolic blood pressure 65 mm[Hg] Dr. Neo Tejeda DO Work Phone: 1(704)[phone] [place] [address] 10-16-2024 08:56-0400 Heart rate 73 /min Dr. Neo Tejeda DO Work Phone: [phone] [place] [address] 10-16-2024 08:56-0400 Respiratory rate 20 /min Dr. Neo Tejeda DO Work Phone: [phone] [place] [address] 10-16-2024 08:56-0400 SaO2% (BldA) [Mass fraction] 90 % Dr. Neo Tejeda DO Work Phone: [phone] [place] [address] 10-16-2024 08:56-0400 Systolic blood pressure 121 mm[Hg] Dr. Neo Tejeda DO Work Phone: [facility] 09-19-2024 14:55-0500 Body mass index (BMI) [Ratio] 22.96 kg/m2 Brigitte Segal PACKING MACHINE PILOT CAN ROUTERStaceyGOLF BALL COVER TREATER Work Phone: [facility] 09-19-2024 14:55-0500 Body temperature 98.71 [degF] Brigitte Suppan PACKING MACHINE PILOT CAN ROUTER.GOLF BALL COVER TREATER Work Phone: [facility] 09-19-2024 14:55-0500 Body weight 72.58 kg Brigitte Suppan PACKING MACHINE PILOT CAN ROUTER.GOLF BALL COVER TREATER Work Phone: [facility] 09-19-2024 14:55-0500 Diastolic blood pressure 62 mm[Hg] Brigitte Suppan PACKING MACHINE PILOT CAN ROUTER.GOLF BALL COVER TREATER Work Phone: [facility] 09-19-2024 14:55-0500 Heart rate 80 /min Brigitte Suppan PACKING MACHINE PILOT CAN ROUTER.GOLF BALL COVER TREATER Work Phone: [facility] 09-19-2024 14:55-0500 SaO2% (BldA) [Mass fraction] 90 % Brigitte Suppan PACKING MACHINE PILOT CAN ROUTER.GOLF BALL COVER TREATER Work Phone: [facility] Comment on above: 3 liters of oxygen 09-19-2024 14:55-0500 Systolic blood pressure 128 mm[Hg] Brigitte Suppan PACKING MACHINE PILOT CAN ROUTER.GOLF BALL COVER TREATER Work Phone: [facility] 09-15-2024 15:00-0500 Body temperature 97.6 [degF] Dr. Neo Tejeda DO Work Phone: [facility] 09-15-2024 15:00-0500 Diastolic blood pressure 71 mm[Hg] Dr. Neo Tejeda DO Work Phone: [facility] 09-15-2024 15:00-0500 Heart rate 82 /min Dr. Neo Tejeda DO Work Phone: [facility] 09-15-2024 15:00-0500 Respiratory rate 16 /min Dr. Neo Tejeda DO Work Phone: [facility] 09-15-2024 15:00-0500 SaO2% (BldA) [Mass fraction] 93 % Dr. Neo Tejeda DO Work Phone: [facility] 09-15-2024 15:00-0500 Systolic blood pressure 140 mm[Hg] Dr. Neo Tejeda DO Work Phone: [facility] 09-15-2024 10:09-0500 Body weight 73.[address] Neo Tejeda DO Work Phone: [facility] 09-15-2024 09:00-0500 Inhaled oxygen flow rate 3 L/min Dr. Neo Tejeda DO Work Phone: [facility] 09-15-2024 03:59-0500 Body mass index (BMI) [Ratio] 23.1 kg/m2 Dr. Neo Tejeda DO Work Phone: [facility] 09-12-2024 09:19-0500 Inhaled oxygen concentration 34 % Dr. Neo Tejeda DO Work Phone: [facility] 03-27-2024 07:47-0400 Body mass index (BMI) [Ratio] 21.81 kg/m2 Brigitte Suppan PACKING MACHINE PILOT CAN ROUTER.GOLF BALL COVER TREATER Work Phone: [facility] 03-27-2024 07:47-0400 Body weight 68.95 kg Brigitte Suppan PACKING MACHINE PILOT CAN ROUTER.GOLF BALL COVER TREATER Work Phone: [facility] 03-27-2024 07:47-0400 Diastolic blood pressure 67 mm[Hg] Brigitte Suppan PACKING MACHINE PILOT CAN ROUTER.GOLF BALL COVER TREATER Work Phone: [facility] 03-27-2024 07:47-0400 Heart rate 63 /min Brigitte Suppan PACKING MACHINE PILOT CAN ROUTER.GOLF BALL COVER TREATER Work Phone: [facility] 03-27-2024 07:47-0400 Respiratory rate 16 /min Brigitte Suppan PACKING MACHINE PILOT CAN ROUTER.GOLF BALL COVER TREATER Work Phone: [facility] 03-27-2024 07:47-0400 SaO2% (BldA) [Mass fraction] 94 % Brigitte Suppan PACKING MACHINE PILOT CAN ROUTER.GOLF BALL COVER TREATER Work Phone: [facility] 03-27-2024 07:47-0400 Systolic blood pressure 126 mm[Hg] Brigitte Suppan PACKING MACHINE PILOT CAN ROUTER.GOLF BALL COVER TREATER Work Phone: [facility] 02-25-2024 08:22-0400 Body mass index (BMI) [Ratio] 21.81 kg/m2 Brigitte Suppan PACKING MACHINE PILOT CAN ROUTER.GOLF BALL COVER TREATER Work Phone: [facility] 02-25-2024 08:22-0400 Body weight 68.95 kg Brigitte Suppan PACKING MACHINE PILOT CAN ROUTER.GOLF BALL COVER TREATER Work Phone: [facility] 02-25-2024 08:22-0400 Diastolic blood pressure 70 mm[Hg] Brigitte Suppan PACKING MACHINE PILOT CAN ROUTER.GOLF BALL COVER TREATER Work Phone: [facility] 02-25-2024 08:22-0400 Heart rate 60 /min Brigitte Suppan PACKING MACHINE PILOT CAN ROUTER.GOLF BALL COVER TREATER Work Phone: [facility] 02-25-2024 08:22-0400 Respiratory rate 16 /min Brigitte Suppan PACKING MACHINE PILOT CAN ROUTER.GOLF BALL COVER TREATER Work Phone: [facility] 02-25-2024 08:22-0400 SaO2% (BldA) [Mass fraction] 94 % Brigitte Suppan PACKING MACHINE PILOT CAN ROUTER.GOLF BALL COVER TREATER Work Phone: [facility] 02-25-2024 08:22-0400 Systolic blood pressure 148 mm[Hg] Brigitte Suppan PACKING MACHINE PILOT CAN ROUTER.GOLF BALL COVER TREATER Work Phone: [facility] 12-25-2023 08:53-0400 Body mass index (BMI) [Ratio] 22.81 kg/m2 NA Durbin PA-C Work Phone: [facility] 12-25-2023 08:53-0400 Body weight 72.12 kg NA Durbin PA-C Work Phone: [facility] 12-25-2023 08:53-0400 Diastolic blood pressure 68 mm[Hg] NA Durbin PA-C Work Phone: [facility] 12-25-2023 08:53-0400 Heart rate 61 /min NA Durbin PA-C Work Phone: [facility] 12-25-2023 08:53-0400 Respiratory rate 16 /min NA Durbin PA-C Work Phone: [facility] 12-25-2023 08:53-0400 SaO2% (BldA) [Mass fraction] 95 % NA Durbin PA-C Work Phone: [facility] 12-25-2023 08:53-0400 Systolic blood pressure 120 mm[Hg] NA Durbin PA-C Work Phone: [facility] 09-25-2023 09:07-0500 Body weight 72.12 kg NA Durbin PA-C Work Phone: [facility] 09-25-2023 09:07-0500 Diastolic blood pressure 62 mm[Hg] NA Durbin PA-C Work Phone: [facility] 09-25-2023 09:07-0500 Heart rate 66 /min NA Durbin PA-C Work Phone: [facility] 09-25-2023 09:07-0500 Respiratory rate 16 /min NA Durbin PA-C Work Phone: [facility] 09-25-2023 09:07-0500 SaO2% (BldA) [Mass fraction] 92 % NA Durbin PA-C Work Phone: [facility] 09-25-2023 09:07-0500 Systolic blood pressure 110 mm[Hg] NA Durbin PA-C Work Phone: [facility] 08-04-2023 12:46-0500 SaO2% (BldA) [Mass fraction] 98 % PA NA Durbin PA Work Phone: [facility] 08-04-2023 10:58-0500 Heart rate 75 /min PA NA Durbin PA Work Phone: [facility] 08-04-2023 10:58-0500 Respiratory rate 16 /min PA NA Durbin PA Work Phone: [facility] 08-04-2023 09:00-0500 Body temperature 97.2 [degF] PA NA Durbin PA Work Phone: [facility] 08-04-2023 09:00-0500 Diastolic blood pressure 62 mm[Hg] PA NA Durbin PA Work Phone: [facility] 08-04-2023 09:00-0500 Systolic blood pressure 138 mm[Hg] PA NA Durbin PA Work Phone: [facility] 08-04-2023 07:20-0500 Inhaled oxygen flow rate 4 L/min PA NA Durbin PA Work Phone: [facility] 08-04-2023 03:07-0500 Body mass index (BMI) [Ratio] 22.6 kg/m2 PA NA Durbin PA Work Phone: [facility] 08-04-2023 03:07-0500 Body weight 71.4 kg PA NA Durbin PA Work Phone: [facility] 08-02-2023 13:52-0500 Body height 177.8 cm PA NA Durbin PA Work Phone: [facility] 08-01-2023 20:53-0500 Inhaled oxygen concentration 92 % PA NA Durbin PA Work Phone: [facility] 08-01-2023 16:17-0500 Diastolic blood pressure 76 mm[Hg] [facility] 08-01-2023 16:17-0500 Heart rate 77 /min [facility] 08-01-2023 16:17-0500 SaO2% (BldA) [Mass fraction] 91 % [facility] 08-01-2023 16:17-0500 Systolic blood pressure 150 mm[Hg] [facility] 08-01-2023 16:16-0500 Inhaled oxygen flow rate 5 L/min [facility] 08-01-2023 16:16-0500 Respiratory rate 24 /min [facility] 08-01-2023 12:44-0500 Body height 177.8 cm [facility] 08-01-2023 12:44-0500 Body mass index (BMI) [Ratio] 23.3 kg/m2 [facility] 08-01-2023 12:44-0500 Body temperature 97.9 [degF] [facility] 08-01-2023 12:44-0500 Body weight 73.66 kg [facility] 06-28-2023 08:57-0500 Body weight 70.94 kg NA Durbin PA-C Work Phone: [facility] 06-28-2023 08:57-0500 Diastolic blood pressure 70 mm[Hg] NA Durbin PA-C Work Phone: [facility] 06-28-2023 08:57-0500 Heart rate 60 /min NA Durbin PA-C Work Phone: [facility] 06-28-2023 08:57-0500 Respiratory rate 16 /min NA Durbin PA-C Work Phone: [facility] 06-28-2023 08:57-0500 SaO2% (BldA) [Mass fraction] 97 % NA Durbin PA-C Work Phone: [facility] 06-28-2023 08:57-0500 Systolic blood pressure 122 mm[Hg] NA Durbin PA-C Work Phone: [facility] 05-25-2023 11:07-0400 Body temperature 98.1 [degF] Jair Marvin MD Work Phone: [facility] 05-25-2023 11:07-0400 Body weight 71.67 kg Jair Marvin MD Work Phone: [facility] 05-25-2023 11:07-0400 Diastolic blood pressure 69 mm[Hg] Jair Marvin MD Work Phone: [facility] 05-25-2023 11:07-0400 Heart rate 70 /min Jair Marvin MD Work Phone: [facility] 05-25-2023 11:07-0400 Respiratory rate 18 /min Jair Marvin MD Work Phone: [facility] 05-25-2023 11:07-0400 SaO2% (BldA) [Mass fraction] 93 % Jair Marvin MD Work Phone: [facility] 05-25-2023 11:07-0400 Systolic blood pressure 132 mm[Hg] Jair Marvin MD Work Phone: [facility] 02-08-2023 09:28-0400 Body weight 71.67 kg NA Durbin PA-C Work Phone: [facility] 02-08-2023 09:28-0400 Diastolic blood pressure 80 mm[Hg] NA Durbin PA-C Work Phone: [facility] 02-08-2023 09:28-0400 Heart rate 56 /min NA Durbin PA-C Work Phone: [facility] 02-08-2023 09:28-0400 Respiratory rate 16 /min NA Durbin PA-C Work Phone: [facility] 02-08-2023 09:28-0400 SaO2% (BldA) [Mass fraction] 96 % NA Durbin PA-C Work Phone: [facility] 02-08-2023 09:28-0400 Systolic blood pressure 148 mm[Hg] NA Durbin PA-C Work Phone: [facility] 01-31-2023 10:43-0400 Body temperature 97.9 [degF] Rebekah Athy PA-C Work Phone: [facility] 01-31-2023 10:43-0400 Body weight 73.57 kg Rebekah Athy PA-C Work Phone: [facility] 01-31-2023 10:43-0400 Diastolic blood pressure 86 mm[Hg] Rebekah Athy PA-C Work Phone: [facility] 01-31-2023 10:43-0400 Heart rate 58 /min Rebekah Athy PA-C Work Phone: [facility] 01-31-2023 10:43-0400 Respiratory rate 18 /min Rebekah Athy PA-C Work Phone: [facility] 01-31-2023 10:43-0400 SaO2% (BldA) [Mass fraction] 97 % Rebekah Athy PA-C Work Phone: [facility] 01-31-2023 10:43-0400 Systolic blood pressure 164 mm[Hg] Rebekah Athy PA-C Work Phone: [facility] 11-27-2022 14:57-0400 Body weight 73.03 kg NA Durbin PA-C Work Phone: [facility] 11-27-2022 14:57-0400 Diastolic blood pressure 68 mm[Hg] NA Durbin PA-C Work Phone: [facility] 11-27-2022 14:57-0400 Heart rate 57 /min NA Durbin PA-C Work Phone: [facility] 11-27-2022 14:57-0400 SaO2% (BldA) [Mass fraction] 96 % NA Durbin PA-C Work Phone: [facility] 11-27-2022 14:57-0400 Systolic blood pressure 130 mm[Hg] NA Durbin PA-C Work Phone: [facility] 06-21-2022 23:01-0500 Heart rate 85 /min PA NA Durbin PA Work Phone: [facility] Work Phone: 06-21-2022 23:01-0500 Respiratory rate 15 /min PA NA Durbin PA Work Phone: [facility] Work Phone: 06-21-2022 23:01-0500 SaO2% (BldA) [Mass fraction] 98 % PA NA Durbin PA Work Phone: [facility] Work Phone: 06-21-2022 21:53-0500 Body height 177.8 cm PA NA Durbin PA Work Phone: [facility] Work Phone: 06-21-2022 21:53-0500 Body mass index (BMI) [Ratio] 22.9 kg/m2 PA NA Durbin PA Work Phone: [facility] Work Phone: 06-21-2022 21:53-0500 Body temperature 97.8 [degF] PA NA Durbin PA Work Phone: [facility] Work Phone: 06-21-2022 21:53-0500 Body weight 72.57 kg PA NA Durbin PA Work Phone: [facility] Work Phone: 06-21-2022 21:53-0500 Diastolic blood pressure 80 mm[Hg] PA NA Durbin PA Work Phone: [facility] Work Phone: 06-21-2022 21:53-0500 Systolic blood pressure 166 mm[Hg] PA NA Durbin PA Work Phone: [facility] Work Phone: 02-08-2022 12:26-0400 Body height 177.[address] Brian Mackenzie III Work Phone: [facility] Work Phone: 02-08-2022 12:26-0400 Body mass index (BMI) [Ratio] 23.5 kg/m2 Dr. Brian Mackenzie III Work Phone: [facility] Work Phone: 02-08-2022 12:26-0400 Body weight 74.[address] Brian Mackenzie III Work Phone: [facility] Work Phone: 02-08-2022 12:26-0400 Diastolic blood pressure 69 mm[Hg] Dr. Brian Mackenzie III Work Phone: [facility] Work Phone: 02-08-2022 12:26-0400 Heart rate 56 /min Dr. Brian Mackenzie III Work Phone: [facility] Work Phone: 02-08-2022 12:26-0400 Respiratory rate 16 /min Dr. Biran Mackenzie III Work Phone: [facility] Work Phone: 02-08-2022 12:26-0400 SaO2% (BldA) [Mass fraction] 96 % Dr. Brian Mackenzie III Work Phone: [facility] Work Phone: 02-08-2022 12:26-0400 Systolic blood pressure 125 mm[Hg] Dr. Brian Mackenzie III Work Phone: [facility] Work Phone: 05-31-2017 08:40-0400 BMI (Body Mass Index) 23.11 kg/m2 Quan Mackenzie MD [facility] [employer] Work Phone: 05-31-2017 08:40-0400 Body Temperature 97.9 [degF] Quan Mackenzie MD [facility] [employer] Work Phone: 05-31-2017 08:40-0400 BP Diastolic 70 mm[Hg] Quan Mackenzie MD [facility] [employer] Work Phone: 05-31-2017 08:40-0400 BP Systolic 150 mm[Hg] Quan Mackenzie MD [facility] [employer] Work Phone: 05-31-2017 08:40-0400 Height 182.88 cm Quan Mackenzie MD [facility] [employer] Work Phone: 05-31-2017 08:40-0400 Pulse (Heart Rate) 74 /min Quan Mackenzie MD [facility] [employer] Work Phone: 05-31-2017 08:40-0400 Respiratory Rate 20 /min Quan Mackenzie MD [facility] [employer] Work Phone: 05-31-2017 08:40-0400 Weight 77.29 kg Quan Mackenzie MD [facility] [employer] Work Phone: 05-08-2017 14:55-0400 BMI (Body Mass Index) 23.08 kg/m2 Quan Mackenzie MD [facility] [employer] Work Phone: 05-08-2017 14:55-0400 Body Temperature 97.5 [degF] Quan Mackenzie MD [facility] [employer] Work Phone: 05-08-2017 14:55-0400 BP Diastolic 76 mm[Hg] Quan Mackenzie MD [facility] [employer] Work Phone: 05-08-2017 14:55-0400 BP Systolic 175 mm[Hg] Quan Mackenzie MD [facility] [employer] Work Phone: 05-08-2017 14:55-0400 Height 182.88 cm Quan Mackenzie MD [facility] [employer] Work Phone: 05-08-2017 14:55-0400 Pulse (Heart Rate) 67 /min Quan Mackenzie MD [facility] [employer] Work Phone: 05-08-2017 14:55-0400 Respiratory Rate 20 /min Quan Mackenzie MD [facility] [employer] Work Phone: 05-08-2017 14:55-0400 Weight 77.2 kg Quan Mackenzie MD [facility] [employer] Work Phone: Encounters Encounter Date Encounter Type Care Provider Facility Start: 02-08-2025 Evaluation and manag ement of inpatient Dr. Janice Sanford MD -[facility] Work Phone: Start: 02-08-2025 Non-patient / Non-visit Dr. Gini Sanford MD -[facility] Work Phone: Start: 10-31-2024 End: 10-31-2024 Telephone encounter Brigitte Segal PACKING MACHINE [employer] Work Phone: [facility] Comment on above: [id number]; Initial Consu lt Start: 10-31-2024 ambulatory Brigitte Jacky Facil ity:[facility] Start: 10-27-2024 End: 10-27-2024 Telephone encounter Brigitte Segal PACKING MACHINE [employer]TER.[employer] T[employer] Work Phone: [facility] [place] Comment on above: Orders; patient POC Start: 10-16-2024 End: 10-16-2024 Patient encounter procedure Kalyn DALY -[facility] Work Phone: Start: 10-16-2024 End: 10-16-2024 ambulatory Brigitte Segal Facility:[facility] Start: 10-15-2024 End: 10-30-2024 Telephone encounter Brigitte Segal APRN.[employer] TREATER Work Phone: [facility] [place] Comment on above: Patient Update Start: 10-03-2024 End: 10-03-2024 Telephone encounter Brigitte Segal APRN.[employer] T[employer]ATER Work Phone: [facility] [place] Comment on above: Oxygen; FYI-No Actio n Needed (/) Start: 09-19-2024 End: 09-19-2024 ambulatory BRIGITTE SEGAL Facility:[facility] Start: 09-19-2024 End: 09-19-2024 Office outpatient visit 25 minutes Brigitte Segal APRN.[employer] T[employer]ATER Work Phone: [facility] Comment on above: Chronic insomnia (Pr imary Dx); Benign prostatic hyperplasia with nocturia; Screening for depression; Hyperlipidemia LDL goal <100; Essential hypertension, benign; Parkinson's disease without dyskinesia, unspecified whether manifestations fluctuate (HCC); 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; Acute respiratory failure with hypoxia (HCC) Start: 09-19-2024 End: 09-19-2024 Telephone encounter Brigitte Segal APRN.[employer] COVER TREATER Work Phone: [facility] [place] Comment on above: Home Health PT Plan of Care Start: 09-17-2024 End: 09-22-2024 Telephone encounter Brigitte Segal APRN.[employer] T[employer]ATER Work Phone: [facility] [place] Comment on above: Nursing Home Plan of Care Start: 09-15-2024 End: 09-15-2024 Telephone encounter Brigitte Segal APRN.[employer] COVER TREATER Work Phone: [facility] Comment on above: Home Health Orders Start: 09-15-2024 Non-patient / Non-visit Dr. John Soliz MD -[facility] Work Phone: Start: 09-14-2024 Non-patient / Non-visit Dr. Lester Eduardo [facility] Work Phone: Start: 09-13-2024 Non-patient / Non-visit Dr. Lester Eduardo [facility] Work Phone: Start: 09-12-2024 Non-patient / Non-visit Dr. Lester Eduardo [facility] Work Phone: Start: 09-11-2024 Non-patient / Non-visit Dr. Lester Eduardo [facility] Work Phone: Start: 09-10-2024 Non-patient / Non-visit Dr. Lester Eduardo [facility] Work Phone: Start: 09-09-2024 End: 09-09-2024 Telephone encounter Brigitte Segal PACKING MACHINE [employer]TER.[employer] TREATER Work Phone: [facility] [place] Start: 09-09-2024 Non-patient / Non-visit Dr. Lester Eduardo [facility] Work Phone: Start: 09-08-2024 ambulatory Brigitte Segal Facil ity:[facility] Start: 09-08-2024 Non-patient / Non-visit [facility] Pederson [facility] Start: 09-08-2024 Non-patient / Non-visit Dr. Lester Eduardo [facility] Work Phone: Start: 09-07-2024 Non-patient / Non-visit Dr. Jerrell badillo [place] -[facility] Work Phone: Start: 09-07-2024 ambulatory Lester Perdomo Facility:[facility] Start: 09-07-2024 End: 09-15-2024 Evaluation and management of inpatient Jerrell Faith Facility:[facility] Start: 03-27-2024 End: 03-27-2024 ambulatory BRIGITTE SEGAL Facility:[facility] Start: 03-27-2024 End: 03-27-2024 Office outpatient visit 15 minutes Brigitte A Suppan PACKING MACHINE [employer] T[employer]ATER Work Phone: [facility] Comment on above: S/P primary angiopla sty with coronary stent; PAD (peripheral artery disease) (HCC); Hyperlipidemia LDL goal <100; Anxiety state; Benign prostatic hyperplasia with nocturia; Essential hypertension, benign; Left sided abdominal pain Start: 03-13-2024 Refill Radha KING-C Work Phone: [facility] Comment on above: Refill Request Start: 02-28-2024 ambulatory Radha KING Fac ility:[facility] Start: 02-26-2024 Telephone encounter Brigitte A Suppan PACKING MACHINE P[employer]TER.[employer] COVER TREATER Work Phone: [facility] Start: 02-25-2024 End: 02-25-2024 ambulatory BRIGITTE A SUPPAN Facility:[facility] Start: 02-25-2024 End: 02-25-2024 Office outpatient visit 15 minutes Brigitte A Suppan PACKING MACHINE P[employer] R[employer]TER.[employer] COVER T[employer]ATER Work Phone: [facility] Comment on above: Left sided abdominal pain (Primary Dx); Essential hypertension, benign Start: 02-19-2024 End: 02-19-2024 ambulatory Radha KING Facility:[facility] Start: 02-09-2024 End: 02-09-2024 Emergency department patient visit Radha KING Facility:[facility] Start: 12-31-2023 Refill Radha KENNEDYC Work Phone: [facility] Comment on above: Refill Request Start: 12-28-2023 Telephone encounter Walter oGmez MD Work Phone: [facility] Comment on above: Results Start: 12-27-2023 End: 12-27-2023 ambulatory CASPER DURBIN Facility:[facility] Start: 12-25-2023 End: 12-25-2023 ambulatory CASPER DURBIN Facility:[facility] Start: 12-25-2023 End: 12-25-2023 Patient encounter procedure Radha Durbin PA-C Work Phone: [facility] Comment on above: 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 (Primary Dx); S/P [...] disorder, mild, abuse Start: 12-13-2023 Refill Radha KING[employer]rightBytes Work Phone: [facility] [place] Comment on above: Refill Request Start: 09-25-2023 End: 09-25-2023 Patient encounter procedure Radha Durbin PA-C Work Phone: [facility] [place] Comment on above: 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; S/P primary angioplasty [...] Non-patient / Non-visit CHRISTINE KING Work Phone: [facility] Work Phone: Start: 08-03-2023 Non-patient / Non-visit CHRISTINE KING Work Phone: [facility] Work Phone: Start: 08-02-2023 Non-patient / Non-visit CHRISTINE KING Work Phone: [facility] Work Phone: Start: 08-01-2023 End: 08-04-2023 Evaluation and management of inpatient CHRISTINE NANDA Ramakrishna PA Work Phone: [facility] Work Phone: Start: 08-01-2023 Evaluation and manag ement of inpatient [facility] Work Phone: Start: 07-10-2023 Refill Radha Salgado on PA-C Work Phone: [facility] Comment on above: Refill Request Start: 07-02-2023 Telephone encounter Radha Durbin PA-C Work Phone: [facility] Start: 06-28-2023 End: 06-28-2023 Patient encounter procedure Radha Durbin PA-C Work Phone: [facility] Comment on above: 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 (Primary Dx); S/P primary angioplasty with coronary stent; Angina pectoris ([facility]); Atherosclerosis of aorta ([facility]); Essential hypertension, benign; Hyperlipidemia LDL goal <100; PAD (peripheral artery disease) ([facility]); Parkinson's disease without dyskinesia, with fluctuating manifestations; Hyperbilirubinemia; Gastroesophageal reflux disease, unspecified whether esophagitis present; Benign prostatic hyperplasia with nocturia; Anxiety state; Diarrhea, unspecified type Start: 06-18-2023 Refill Radha Salgado on PA-C Work Phone: [facility] Comment on above: Refill Request Start: 05-25-2023 End: 05-25-2023 Patient encounter procedure Jair Marvin MD Work Phone: [facility] Comment on above: Abrasion of anterior right lower leg, initial encounter (Primary Dx) Start: 05-14-2023 Telephone encounter Radha Salgadoon PA-C Work Phone: [facility] Comment on above: Results Start: 05-11-2023 Telephone encounter Radha Durbin PA-C Work Phone: [facility] Comment on above: Results Start: 05-11-2023 End: 05-11-2023 Subsequent hospital visit by physician Nasrin [facility] ([facility]) Work Phone: [facility] Comment on above: Atherosclerosis of a ken (HCC) [I70.0] Start: 02-08-2023 End: 02-08-2023 Patient encounter procedure Radha Justin Durbin PA-C Work Phone: [facility] [place] Comment on above: Piriformis syndrome, left (Primary Dx); Somatic dysfunction of left sacroiliac joint Start: 01-31-2023 End: 01-31-2023 Subsequent hospital visit by physician Xr [facility] [place] Work Phone: Radiology Comment on above: Back pain of lumbar region with sciatica [M54.40] Start: 01-31-2023 End: 01-31-2023 Patient encounter procedure Rebekah KENNEDYC Work Phone: [facility] Comment on above: Back pain of lumbar region with sciatica (Primary Dx) Start: 01-12-2023 Refill Walter Gomez MD Work Phone: [facility] [place] Comment on above: Refill Request Start: 11-30-2022 Telephone encounter Radha Justin Durbin PA-C Work Phone: [facility] [place] Comment on above: Results Start: 11-27-2022 End: 11-27-2022 Patient encounter procedure Radha Justin KENNEDYC Work Phone: [facility] [place] Comment on above: S/P primary angiopla sty with coronary stent (Primary Dx); PAD (peripheral artery disease) ([facility]); Hyperlipidemia LDL goal <100; Essential hypertension, benign; Angina pectoris ([facility]); Parkinson's disease ([facility]); Gastroesophageal reflux disease, unspecified whether esophagitis present; Iron deficiency anemia due to chronic blood loss; Benign prostatic hyperplasia with nocturia; Restless legs syndrome; Anxiety state; Elevated PSA; Chronic insomnia Start: 08-07-2022 Refill Radha benjamin PA-C Work Phone: [facility] [place] Comment on above: Refill Request Start: 07-07-2022 Refill Radha benjamin PA-C Work Phone: [facility] Comment on above: Refill Request Start: 06-21-2022 End: 06-21-2022 Emergency department patient visit CHRISTINE KING Work Phone: [facility]-Emergency Department Start: 04-10-2022 Refill Radha Salgado on PA-C Work Phone: [facility] Comment on above: Refill Request Start: 02-27-2022 Non-patient / Non-visit Dr. Fr georgina Mackenzie III Work Phone: [facility] Start: 02-27-2022 End: 02-27-[address] Brian Mackenzie III Work Phone: [facility]iov[facility] Start: 02-08-2022 End: 02-08-[address] Brian Mackenzie III Work Phone: [facility] Start: 01-09-2022 Refill Radha Salgado on PA-C Work Phone: [facility] Comment on above: Refill Request Procedures Date Procedure Procedure Detail Performing Clinician Start: 02-08-2025 Estimated creatinine clearance Brigitte Segal VOICE INTERCEPT TECHNICIAN Work Phone: Start: 02-08-2025 Serum inorganic phos phate measurement Brigitte Segal VOICE INTERCEPT TECHNICIAN Work Phone: Start: 09-19-2024 Adult depression scr eening assessment Brigitte Segal PACKING MACHINE [employer] TRE[employer] Work Phone: Start: 09-14-[address] Neo Tejeda DO Work Phone: Start: 09-14-2024 Measurement of renal function Dr. Neo Tejeda DO Work Phone: Comment on above: GFR Calc Start: 09-14-[address] Neo Tejeda DO Work Phone: Start: 09-09-2024 Gram stain microscopy D robe Tejeda DO Work Phone: Start: 09-09-2024 Legionella [...] VALUE CALLED TO NIKOLAS HILL09/07/24 1307 Robyn Lizarraga.RESULTS READ BACK BY SAME. Start: 09-07-2024 CT [...] primary angioplasty with coronary stent M Justin Salgadoon PA-C Work Phone: History of placement [...] primary angioplasty with coronary stent Brigitte Segal PACKING MACHINE P[employer] ROUTER.[employer] C[employer] TREATER Work Phone: Plan of Treatment Date Care Activity Detail Author Start: 02-24-2027 Diabetes Screening Diabetes Screening [facility] Start: 12-26-2026 Diabetes Screening Diabetes Screening [facility] Start: 06-28-2026 Diabetes Screening Diabetes Screening [facility] Start: 05-10-2026 Urine microalbumin profile [facility] Start: 11-29-2025 DIABETES SCREEN DIABETES SCREEN [facility] Start: 11-29-2025 Diabetes Screening Diabetes Screening [facility] Start: 09-19-2025 Depression Screening Depression Screening [facility] Start: 03-19-2025 End: 03-19-2025 Patient encounter procedure 03/19/2025 10:40 AM EDT Office Visit [facility] [place] [address] [place] [address] Brigitte Segal APRN.[employer] COVER TREATER [address] [place] [address] 6 month exam [facility] [place] Comment on above: 6 month exam Start: 02-09-2025 CT of thorax with contrast Chest WITH Contrast [facility] Start: 02-09-2025 Thyroid stimulating hormone measurement [facility] Start: 02-08-2025 End: 02-08-2025 [facility] Start: 02-08-2025 Application of intermittent pneumatic compression device [facility] Start: 02-08-2025 Following clinical pathway protocol [facility] Start: 02-08-2025 Aspiration precautions [facility] Start: 02-08-2025 Assessment of risk of venous thromboembolism [facility] Start: 02-08-2025 Cardiac monitoring [facility] Start: 02-08-2025 Catheterization of vein [facility] Start: 02-08-2025 Consultation [facility] Start: 02-08-2025 Continuous pulse oximetry [facility] Start: 02-08-2025 Elevation of head of bed [facility] Start: 02-08-2025 Exercises [facility] Start: 02-08-2025 Incentive spirometry [facility] Start: 02-08-2025 Inhalation therapy procedure [facility] Start: 02-08-2025 Insertion of catheter into peripheral vein [facility] Start: 02-08-2025 Introduction of urinary catheter [facility] Start: 02-08-2025 Measuring intake and output [facility] Start: 02-08-2025 Notification of physician [facility] Start: 02-08-2025 Oxygen therapy [facility] Start: 02-08-2025 Patient referral to dietitian [facility] Start: 02-08-2025 Providing care according to standard [facility] Start: 02-08-2025 Provision of activity privileges [facility] Start: 02-08-2025 Referral to occupational therapist [facility] Start: 02-08-2025 Referral to service [facility] Start: 02-08-2025 Speech therapy assessment [facility] Start: 02-08-2025 Telemedicine consultation with patient [facility] Start: 02-08-2025 Tobacco use cessation education [facility] Start: 02-08-2025 End: 02-08-2025 [facility] Start: 02-08-2025 MRI of brain with contrast Brain W/WO Contrast [facility] Start: 02-08-2025 Verification routine [facility] Start: 02-08-2025 Admission procedure [facility] Start: 01-26-2025 Influenza vaccination [facility] Vaccine (#1) [facility] Comment on above: Postponed from 03/30/2024 (Declined at t his time) Start: 12-26-2024 Hepatitis B surface antibody level LDL Cholesterol [facility] Start: 12-24-2024 Covid-19 Vaccine ( season) Covid-19 Vaccine () [facility] Comment on above: Postponed from 08/31/2023 (Declined at t his time) Start: 12-24-2024 DIABETES SCREEN DIABETES SCREEN [facility] Start: 10-20-2024 End: 10-20-2024 Patient encounter procedure 10/20/2024 10:00 AM EDT Office Visit [facility] [address] [place] [address] Brigitte Segal PACKING MACHINE P[employer] CAN ROUTER.[employer] C[employer] TRE[employer] [address] [place], [place] [id number] follow up [facility] Comment on above: follow up Start: 09-19-2024 End: 09-19-2024 Patient encounter procedure 09/19/2024 2:40 PM EST Office Visit Family [facility] [address], [place] [id number] Brigitte Segal, PACKING MACHINE PILOT CAN ROUTER.[employer] BALL COVER TREATER [address] [place], [place] [id number] follow up [facility] for hypoxia [facility] Comment on above: follow up [facility] for hypoxia Start: 09-15-2024 Referral to service [facility] Start: 09-15-2024 Patient discharge [facility] Start: 09-08-2024 Referral to occupational therapist [facility] Start: 09-08-2024 Referral to service [facility] Start: 09-08-2024 Physiotherapy of chest [facility] Start: 09-07-2024 Following clinical pathway protocol [facility] Start: 09-07-2024 Ambulation without limitation [facility] Start: 09-07-2024 Assessment of risk of venous thromboembolism [facility] Start: 09-07-2024 Catheterization of vein [facility] Start: 09-07-2024 Inhalation therapy procedure [facility] Start: 09-07-2024 Insertion of catheter into peripheral vein [facility] Start: 09-07-2024 Measuring intake and output [facility] Start: 09-07-2024 Providing care according to standard [facility] Start: 09-07-2024 Provision of activity privileges [facility] Start: 09-07-2024 [facility] Start: 09-07-2024 Admission procedure [facility] Start: 09-07-2024 Oxygen therapy [facility] Start: 09-07-2024 [facility] Start: 09-07-2024 Continuous positive airway pressure ventilation treatment [facility] Start: 09-07-2024 Patient referral to dietitian [facility] Start: 07-30-2024 Advance Directive Discussion Advance Directive Discussion [facility] Start: 07-01-2024 End: 07-01-2024 Patient encounter procedure 07/01/2024 9:00 AM EST Office Visit Family [facility] [address] [place] [address] Radha Durbin PA-C [address] [place] [address] 6 month follow up [facility] Comment on above: 6 month follow up Start: 03-30-2024 Covid-19 Vaccine () Covid-19 Vaccine () [facility] Start: 03-30-2024 Covid-19 Vaccine ( season) Covid-19 Vaccine () [facility] Start: 03-30-2024 Influenza vaccination Influenza Vaccine (#1) [facility] Start: 03-27-2024 End: 03-27-2024 Patient encounter procedure 03/27/2024 8:00 AM EDT Office Visit [facility] [address] [place] [address] Brigitte Segal APRN.[employer] COVER TREATER [address] [place] [address] 1 month abdominal pain f/u [facility] [place] Comment on above: 1 month abdominal pain f/u Start: 02-25-2024 End: 05-26-2024 Amylase [Enzymatic activity/volume] in Serum or Plasma [facility] Comment on above: Expected: 02/25/2024, Expires: 4 Start: 02-25-2024 End: 05-26-2024 CBC W Auto Differential panel - Blood [facility] Comment on above: Expected: 02/25/2024, Expires: Start: 02-25-2024 End: 05-26-2024 Comprehensive metabolic 2000 panel - Serum or Plasma [facility] Comment on above: Expected: 02/25/2024, Expires: 4 Start: 02-25-2024 End: 05-26-2024 Helicobacter pylori IgG Ab [Presence] in Serum or Plasma by Immunoassay [facility] Work Phone: Comment on above: Expected: 02/25/2024, Expires: 4 Start: 02-25-2024 End: 05-26-2024 Lipase [Enzymatic activity/volume] in Serum or Plasma [facility] Comment on above: Expected: 02/25/2024, Expires: 4 Start: 02-09-2024 COVID-19 VACCINE (4 - Pfizer series) COVID-19 VACCINE (4 - Pfizer series) [facility] Comment on above: Postponed from 07/13/2021 (Declined at t his time) Start: 02-09-2024 SHINGRIX VACCINE (1 of 2) SHINGRIX VACCINE (1 of 2) [facility] Comment on above: Postponed from 11/04/1987 (Declined at t his time) Start: 12-25-2023 End: 12-25-2023 Patient encounter procedure 12/25/2023 9:00 AM EDT Office Visit [facility] [place] [address], [place] [id number] Radha Durbin PA-C [address] [place] [address] 3 month follow up [facility] Comment on above: 3 month follow up Start: 12-24-2023 End: 03-24-2024 CBC W Auto Differential panel - Blood COMPLETE BLOOD COUNT AND DIFFERENTIAL Lab Routine 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 Essential hypertension, benign Hyperlipidemia LDL goal <100 Gastroesophageal reflux disease, unspecified whether esophagitis present Anxiety state Expected: 12/24/2023, Expires: 03/24/2024 [facility] Work Phone: Comment on above: Expected: 12/24/2023, Expires: Start: 12-24-2023 End: 03-24-2024 Comprehensive metabolic 2000 panel - Serum or Plasma COMPREHENSIVE METABOLIC PANEL Lab Routine 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 Essential hypertension, benign Hyperbilirubinemia Gastroesophageal reflux disease, unspecified whether esophagitis present Anxiety state Expected: 12/24/2023, Expires: 03/24/2024 [facility] Comment on above: Expected: 12/24/2023, Expires: Start: 12-24-2023 End: 03-24-2024 Lipid 1996 panel - Serum or Plasma LIPID PANEL BASIC Lab Routine 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 Atherosclerosis of aorta (HCC) Hyperlipidemia LDL goal <100 Expected: 12/24/2023, Expires: 03/24/2024 [facility] Comment on above: Expected: 12/24/2023, Expires: Start: 12-24-2023 End: 08-26-2024 Magnesium [Mass/volume] in Serum or Plasma MAGNESIUM Lab Routine 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 Current use of proton pump inhibitor Expected: 12/24/2023, Expires: 03/24/2024 [facility] Comment on above: Expected: 12/24/2023, Expires: Start: 11-30-2023 Hepatitis B surface antibody level LDL CHOLESTEROL [facility] Start: 08-31-2023 Covid-19 Vaccine () Covid-19 Vaccine () [facility] Start: 08-04-2023 Patient discharge [facility] Start: 08-04-2023 [facility] Start: 08-03-2023 Physiotherapy of chest [facility] Start: 08-01-2023 Elevation of head of bed [facility] Start: 08-01-2023 Patient education [facility] Start: 08-01-2023 [facility] Start: 08-01-2023 Following clinical pathway protocol [facility] Start: 08-01-2023 Oxygen therapy [facility] Start: 08-01-2023 Admission procedure [facility] Start: 08-01-2023 Provision of activity privileges [facility] Start: 08-01-2023 Assessment of risk of venous thromboembolism [facility] Start: 08-01-2023 Insertion of catheter into peripheral vein [facility] Start: 08-01-2023 Measuring intake and output [facility] Start: 08-01-2023 Providing care according to standard [facility] Start: 08-01-2023 End: 08-01-2023 Referral to service [facility] Start: 08-01-2023 [facility] Start: 08-01-2023 Hospital admission, emergency, from emergency room, medical nature [facility] Start: 08-01-2023 Inhalation therapy procedure [facility] Start: 07-30-2023 Advance Directive Discussion Advance Directive Discussion [facility] Start: 07-30-2023 Behavioral Health Screening Behavioral Health Screening [facility] Start: 07-30-2023 Depression Assessment Depression Assessment [facility] Start: 07-29-2023 DEPRESSION ASSESSMENT DEPRESSION ASSESSMENT [facility] Comment on above: Postponed from 07/30/2022 (Declined at t his time) Start: 03-30-2023 Influenza vaccination [facility] Start: 12-24-2022 Hepatitis B surface antibody level LDL CHOLESTEROL [facility] Start: 12-19-2022 SHINGRIX VACCINE (1 of 2) SHINGRIX VACCINE (1 of 2) [facility] Comment on above: Postponed from 11/04/1987 (Insurance Cov erage) Start: 11-27-2022 End: 01-27-2023 CBC panel - Blood by Automated count CBC Lab Routine S/P primary angioplasty with coronary stent Expected: 11/27/2022, Expires: 01/27/2023 [facility] Work Phone: Comment on above: Expected: 11/27/2022, Expires: 3 Start: 11-27-2022 End: 01-27-2023 Comprehensive metabolic 2000 panel - Serum or Plasma COMP METABOLIC PANEL Lab Routine S/P primary angioplasty with coronary stent Expected: 11/27/2022, Expires: 01/27/2023 [facility] Work Phone: Comment on above: Expected: 11/27/2022, Expires: 3 Start: 11-27-2022 End: 01-27-2023 Lipid 1996 panel - Serum or Plasma LIPID PANEL BASIC Lab Routine S/P primary angioplasty with coronary stent Expected: 11/27/2022, Expires: 01/27/2023 [facility] Work Phone: Comment on above: Expected: 11/27/2022, Expires: 3 Start: 11-27-2022 End: 01-27-2023 Prostate specific Ag [Mass/volume] in Serum or Plasma PSA/PROSTSPECAG DIAG Lab Routine Elevated PSA Expected: 11/27/2022, Expires: 01/27/2023 [facility] Work Phone: Comment on above: Expected: 11/27/2022, Expires: 3 Start: 07-30-2022 ADVANCE DIRECTIVE DISCUSSION ADVANCE DIRECTIVE DISCUSSION [facility] Start: 07-30-2022 DEPRESSION ASSESSMENT DEPRESSION ASSESSMENT [facility] Start: 03-30-2022 Influenza vaccination INFLUENZA (#1) [facility] Start: 02-08-2022 Patient referral [facility] Work Phone: Start: 09-18-2021 COVID-19 VACCINE (4 - Booster for Pfizer series) COVID-19 VACCINE (4 - Booster for Pfizer series) [facility] Start: 07-30-2021 DEPRESSION ASSESSMENT DEPRESSION ASSESSMENT [facility] Start: 07-13-2021 COVID-19 VACCINE (4 - Booster for Pfizer series) COVID-19 VACCINE (4 - Booster for Pfizer series) [facility] Start: 05-31-2017 End: 05-31-2017 Appointment Appointment [facility] [employer] Work Phone: Start: 05-22-2017 End: 05-22-2017 Appointment Appointment [facility] [employer] Work Phone: Start: 05-08-2017 End: 05-08-2017 Appointment Appointment [facility] [employer] Work Phone: Start: 05-08-2017 End: 05-08-2017 Arterial exam Arterial exam [facility] [employer] Work Phone: Start: 05-08-2017 End: 05-08-2017 N-invas physiologic std lxtr art compl bi PVR with exercise [facility] [employer] Work Phone: Start: 2012 RSV Vaccine (1 - 1-dose 75+ series) RSV Vaccine (1 - 1-dose 75+ series) [facility] Start: 1997 RSV Vaccine (1 - 1-dose 60+ series) RSV Vaccine (1 - 1-dose 60+ series) [facility] Start: 11-04-1987 SHINGRIX VACCINE (1 of 2) SHINGRIX VACCINE (1 of 2) [facility] Start: 11-04-1955 Depression Screening Depression Screening [facility] Alanine aminotransfe rase [Enzymatic activity/volume] in Serum or Plasma [facility] Albumin [Mass/volume ] in Serum or Plasma [facility] Alkaline phosphatase [Enzymatic activity/volume] in Serum or Plasma [facility] Anion gap in Serum o r Plasma [facility] Bilirubin, total measurement [facility] BUN/Creatinine ratio [facility] Calcium [Mass/volume ] in Serum or Plasma [facility] Carbon dioxide, tota l [Moles/volume] in Central venous blood [facility] Cholesterol [Mass/vo lume] in Serum or Plasma [facility] Cholesterol in HDL [Mass/volume] in Serum or Plasma [facility] Creatinine [Mass/vol ume] in Serum or Plasma [facility] Cyclic citrullinated peptide IgG Ab [Units/volume] in Serum or Plasma [facility] Cytoplasmic ANCA Screen [facility] mean corpuscular volume determination [facility] Glucose [Mass/volume ] in Serum or Plasma [facility] Hematocrit [Volume Fraction] of Blood [facility] Hemoglobin [Mass/vol ume] in Blood [facility] Hemoglobin A1c/Hemoglobin.total in Blood [facility] Leukocytes [#/volume ] in Blood [facility] Low density lipoprot ein cholesterol measurement [facility] Mean corpuscular hemoglobin concentration determination [facility] Mean corpuscular hemoglobin determination [facility] Measurement of renal function [facility] Measurement of respiratory function [facility] Neutrophil count [facility] Neutrophil percent differential count [facility] Patient Education ED Epistaxis (Adult) [facility] Work Phone: Patient referral [facility] Work Phone: Platelets [#/volume] in Blood [facility] Potassium measurement [facility] Red blood cell count [facility] Red cell distributio n width determination [facility] Rheumatoid factor [Presence] in Serum [facility] Serum chloride measurement [facility] Sodium measurement [facility] Total cholesterol:HD L ratio measurement [facility] Total protein measurement [facility] Triglycerides measurement [facility] Troponin T.cardiac [Mass/volume] in Serum or Plasma by High sensitivity method [facility] Urea nitrogen [Mass/volume] in Serum or Plasma [facility] VLDL cholesterol measurement [facility] Immunizations Immunization Date Immunization Notes Care Provider Mendoza lee 04-30-2023 COVID-19 vaccine, ag e 12+ yr, season (Informed[employer]) NANDA Durbin PA-C Work Phone: [facility] 04-16-2023 influenza, high dose seasonal, preservative-free NA Durbin PA-C Work Phone: [facility] 04-16-2023 influenza virus vacc ine, unspecified formulation Brigitte Segal APRN.[employer] Work Phone: [facility] 05-16-2022 influenza (HD-IIV4) vaccine, age 65+ yr, high dose, quadrivalent, PF (FLUZONE HIGH-DOSE) Brigitte Segal APRN.[employer] COVER TREATER Work Phone: [facility] 05-18-2021 COVID-19 vaccine, ag e 12+ yr (PFIZER-BIONTECH - PURPLE TOP) NA Durbin PA-C Work Phone: [facility] 05-18-2021 influenza (HD-IIV4) vaccine, age 65+ yr, high dose, quadrivalent, PF (FLUZONE HIGH-DOSE) NA Durbin PA-C Work Phone: [facility] 05-18-2021 influenza, high dose seasonal, preservative-free NA Durbin PA-C Work Phone: [facility] 11-01-2020 COVID-19 vaccine, ag e 12+ yr (PFIZER-BIONTECH - PURPLE TOP) NA Durbin PA-C Work Phone: [facility] 10-08-2020 COVID-19 vaccine, ag e 12+ yr (PFIZER-BIONTECH - PURPLE TOP) NA Durbin PA-C Work Phone: [facility] 04-26-2020 influenza, high-dose , quadrivalent vaccine (FLUZONE HIGH DOSE QUADRIVALENT) NA Durbin PA-C Work Phone: [facility] 04-13-[address] Brian Mackenzie III Work Phone: [facility] 04-24-2018 influenza, high dose seasonal, preservative-free NA Durbin PA-C Work Phone: [facility] 05-14-2017 influenza, high dose seasonal, preservative-free NA Durbin PA-C Work Phone: [facility] 05-10-2016 pneumococcal conjuga te vaccine, 13 valent NANDA Durbin PA-C Work Phone: [facility] 05-10-2016 tetanus toxoid, redu lane diphtheria toxoid, and acellular pertussis vaccine, adsorbed NA Ramakrishna BIRD Work Phone: [facility] 04-29-[address] Brian Mackenzie III Work Phone: [facility] 03-27-2008 pneumococcal polysaccharide vaccine, 23 valent NANDA Durbin PA-C Work Phone: [facility] Work Phone: Payers Date Payer Category Payer Self-pay [id number] 2017 Medicare ([employer]) PRIMETIM E [id number] 2017 Unknown PRIMETIME PRIMET [place] O POS [id number] 2017-Present [phone] [place] [id number] [facility] [id number] 2017 Unknown PRIMETIME PRIMET [place] O POS [id number] 2017-Present [phone] [place] [id number] [facility] [id number] 2009 Unknown [id number] Unknown [id number] Unknown [id number] [id number] Unknown [id number]. 2.462 Unknown [id number]. 2.462 Unknown [id number]. 2.462 Unknown [id number]. 2.462 Unknown [id number]. 2.462 Unknown [id number]. 2.462 Unknown [id number]. 2.462 Unknown [id number]. 2.462 Unknown [id number]. 2.462 Unknown [id number]. 2.462 Unknown [id number]. 2.462 Unknown [id number]. [id number] Unknown [id number] Unknown [id number] [id number] Social History Date Type Detail Facility Start: 07-11-2017 End: 02-08-2025 Tobacco smoking status [facility] Ex-smoker [facility] Work Phone: Start: 12-19-2021 End: 09-19-2024 Alcohol intake Current drinker of alcohol (finding) [facility] Start: 1935 Sex Assigned At Not on file [facility] Start: 12-13-2021 End: 12-23-2021 Exposure to SARS-CoV-2 (event) Not sure [facility] Start: 02-08-2022 End: 08-01-2023 Tobacco smoking status NHIS Unknown if ever smoked [facility] Start: 08-26-2020 [facility] Start: 08-26-2020 None [facility] Start: 08-26-2020 Spouse/ Signif icant Other [facility] Start: 08-26-2020 Non-smoker [facility] Start: 1935 Sex Assigned At Male [facility] History of tobacco use Current smoker [facility] Start: 07-11-2017 End: 11-27-2022 Tobacco use and exposure Smokeless tobacco non-user [facility] Start: 11-27-2022 Tobacco Comment quit 1999 [facility] Start: 12-22-2022 End: 02-08-2023 History of Social function [facility] Start: 12-22-2022 End: 02-08-2023 Tobacco use panel [facility] Adult Depression Screening Assessment 0 [facility] Goals Date Patient Goal Desired Activity /State Functional Status Date Assessment Result Facility 02-08-2025 Functional status Activity Abili ty With Assist of 1 [facility] Work Phone: 09-15-2024 Functional status Chair [facility] Work Phone: 08-04-2023 Functional status Ambulates [facility] Work Phone: 09-21-2017 Are you deaf, or do you have serious difficulty hearing No 09/21/2017 1:31 PM Brian Whitman III, MD No [facility] 09-21-2017 Are you blind, or do you have serious difficulty seeing, even when wearing glasses No 09/21/2017 1:31 PM Brian Whitman III, MD No [facility] 09-21-2017 Do you have serious difficulty walking or climbing stairs No 09/21/2017 1:31 PM Brian Whitman III, MD No [facility] 09-21-2017 Do you have difficul ty dressing or bathing No 09/21/2017 1:31 PM Brian Whitman III, MD No [facility] 09-21-2017 Because of a physica l, mental, or emotional condition, do you have difficulty doing errands alone such as visiting a physician's office or shopping No 09/21/2017 1:31 PM Brian Whitman III, MD No [facility] Mental Status Date Assessment Result Facility 02-08-2025 Cognitive function Voice/Name [facility] Work Phone: 09-15-2024 Cognitive function Voice/Name [facility] Work Phone: 08-03-2023 Cognitive function Voice/Name [facility] Work Phone: 08-01-2023 Cognitive function Level Of Cons ciousness Awake;Alert;Appropriate;Fol lows Commands [facility] Work Phone: 09-21-2017 Because of a physica l, mental, or emotional condition, do you have serious difficulty concentrating, remembering, or making decisions No 09/21/2017 1:31 PM Brian Whitman III, MD [facility] Clinical Notes 08-30-2017 to 02-08-2025 Note Date & Type Note Facility 02-08-2025 History and physical note Note Date/Time February 08, 2025 6:57pm [facility] Medical Records Department [address] [place] [address] H&P Exam - Hospitalist 02/08/25 1845 MR#: [id number] Acct: [id number] Name: CLARK LYLES Rep #:[id number] : 1935 89 From: Janice Sanford MD PCP: Brigitte Segal, VOICE INTERCEPT TECHNICIAN Status:REG ER Location: ED HPI - General General Date of Admission: 02/08/25 Date of Service: 02/08/25 Chief Complaint: Confusion, slurred speech. HPI Narrative The patient is an 89 y/o M w/ PMHx: Pulmonary HTN/? COPD w/ Chronic Hypoxic Respiratory Failure (4L NC at home), ? CKD stage III per GFR trending, CAD s/p PCI, PAD s/p BL LE PCI with single stent in each LE per family report, HTN, HLD,Former tobacco use who presents to the [facility] ED on 02/10/2025 with history of last known well at approximately 1300 on day of presentation with onset at 2:30 PM significant dysarthria although at that pointwas drinking whiskey but only reports taking small sips not normally drinking per family report or at least they do not witness him routinely drinking and given his significant dysarthria/altered speech as well as confusion prompted EDevaluation. In the ED initial NIH stroke scale assessment per neurology noted to be 1 for mild to moderate dysarthria. Family does report that when he was found and initially noted to be confused it was when he was getting up from a nap specifically. When family was bringing him in to the hospital to attempt rogelio evaluated he was very weak and slid to the floor but there was no trauma or loss of consciousness. Workup in the ED included T98, heart rate 58, BP 118/65, respiratory rate 19, 90% on 6 L nasal cannula with most recent repeat vitals heart rate 59, BP 119/61, respiratory rate 20, 91% on 6 L nasal cannula, CBC with WC 10.1, he 116.3, platelet 200 with increased immature granulocytes, unremarkable coags, BMP with come DexPak 20, anion gap 18, BUN/creat 23/1.39, GFR 52, glucose 102, troponin initial 29, ethyl alcohol pending upon evaluation,CT of the head with no acute intracranial findings, CTA head and neck with no hemodynamically significant narrowing or large vessel occlusion in the head or neck, solid pulmonary nodule right upper lobe measuring 1.4 cm with extensive lymphadenopathy throughout the visualized upper mediastinum, right frontal lobe extra-axial focus of enhancement up to 8 mm possibly meningioma however unable to rule out metastatic lesion, CT cervical spine with no acute osseous finding of the cervical spine, EKG with sinus rhythm with no acute evidence of ischemia. Patient was a stroke alert evaluation and was deemed not a candidate for tenecteplase. [facility] Medical History Chronic hypoxic respiratory failure, on home oxygen therapy Pulmonary hypertension COPD (chronic obstructive pulmonary disease) COVID-19 virus detected (08/23/20) Anxiety and depression Chronic anemia Pneumonia due to COVID-19 virus GI bleed (12/2019) Atherosclerosis of coronary artery of [place] heart without angina pectoris Peripheral vascular occlusive disease Hyperlipidemia Essential (primary) hypertension GERD (gastroesophageal reflux disease) BPH (benign prostatic hyperplasia) Incontinence Diverticulosis Home Medications ?Medication ?Instructions ?Recorded ?Last Taken ?Type citalopram 20 mg tablet 20 mg PO DAILY DEPRESSION 08/01/23 History multivitamin 1 ea PO DAILY HEALTH MINE[place] CE 05/16/17 08/01/23 History tamsulosin 0.4 mg capsule 0.4 mg PO DAILY PROSTATE 01/1608/01/23 History ascorbic acid (vitamin C) 1,000 mg 1,000 mg PO DAILY S UPPLEMENT 01/18/20 08/01/23 History tablet atorvastatin 10 mg tablet 10 mg PO DAILY CHOLESTEROL 0 08/25/20 08/01/23 History clopidogrel 75 mg tablet 75 mg PO DAILY BLOOD THINNER 08/25/20 08/01/23 History finasteride 5 mg tablet 5 mg PO DAILY PROSTATE 08/2608/01/23 History metoprolol succinate 25 mg 25 mg PO DAILY BLOOD PRESSU RE 08/01/23 08/01/23 History tablet,extended release 24 hr Lactobacillus acidophilus 1 1,000 mmu cells PO DAILY # 30 caps 08/04/23 Unknown Rx billion cell capsule hydrochlorothiazide 25 mg tablet 12.5 mg PO DAILY BLOO D PRESSURE 09/07/24 Unknown History pantoprazole 40 mg tablet,delayed 40 mg PO DAILY gerd 09/07/24 Unknown History release amlodipine 5 mg tablet 10 mg (2 x 5 mg) PO DAILY bp 30 09/15/24 Unknown Rx days #0 tabs Allergy/AdvReac Type Severity Reaction Status Date / Time Sulfa (Sulfonamide Allergy Rash Verified 02/08/25 18:40 Antibiotics) lisinopril AdvReac Other Verified 02/08/25 18:40 Family History Father CVA (cerebral vascular accident) Mother CVA (cerebral vascular accident) Hypertension Surgical History History of colonoscopy (12/2019) History of coronary artery stent placement (09/08/19) History of angioplasty of peripheral vessel (08/2017) History of herniorrhaphy History of esophagogastroduodenoscopy (EGD) (12/2019) Social History (Updated 02/08/25 @ 18:[address] Janice Sanford MD) household members: none housing: house Smoking Status: Former smoker how long ago did patient quit smoking: Quit 1999, smoked heavy pipe since youthuntil quit, occasional cigarette. alcohol intake: current alcohol intake frequency: a few times a week Alcohol type: hard liquor substance use type: does not use ROS ROS Narrative Admission Review of Systems: CONSTITUTIONAL: No weight loss, fever, chills, + weakness or fatigue. HEENT: Eyes: No visual loss, blurred vision, double vision or yellow sclerae. Ears, Nose, Throat: No hearing loss, sneezing, congestion, runny nose or sore throat. SKIN: No rash or itching, lesions, wounds. CARDIOVASCULAR: No chest pain, chest pressure or chest discomfort, palpitations,edema, orthopnea, syncopal events. RESPIRATORY: + Chronic dyspnea with chronic oxygen supplementation. No recent marked productive cough, wheezing, hemoptysis. GASTROINTESTINAL: No anorexia, nausea, vomiting or diarrhea, abdominal pain, melena, BRBPR. GENITOURINARY: No dysuria, frequency, urgency or retention. NEUROLOGICAL: + Dysarthria, slurred speech. No headache, dizziness, syncope, paralysis, ataxia, numbness or tingling in the extremities, focal weakness, change in bowel or bladder control, seizure. MUSCULOSKELETAL: + muscle, back pain, joint pain or stiffness. HEMATOLOGIC: No anemia. + Easy bleeding/bruising. LYMPHATICS: No enlarged nodes. No history of splenectomy. PSYCHIATRIC: No history of depression or anxiety. ENDOCRINOLOGIC: No reports of sweating, cold or heat intolerance. No polyuria orpolydipsia. ALLERGIES: No history of asthma, hives, eczema or rhinitis. Vital Signs Vital Signs Vital Signs: 02/08/25 16:48 Temperature 98 F Temperature Source Oral Weight Weight: 156 lb Body Mass Index (BMI) 22.4 Physical Exam Narrative Physical Examination: General: Awake, alert, oriented to self, place, year but gives the wrong month, gives correct holiday recently, remains cooperative, seated upright in ED bed, severely hard of hearing, speech is improved per family report but still confused. Skin: Normal color, normal turgor, no icterus, no cyanosis except occasional stage ecchymoses, abrasion. HEENT: AT/NC, EOMI, PERRLA, MMM, no carotid bruits or JVD noted. Lungs: CTA bilaterally, moderate effort, mild decrease BL bases, no rales, ronchi or wheezing. Heart: Regular rate and rhythm; no gallop, rub audible. Abdomen: Soft, NTTP, ND, normal BS, no HSM. Extremities: No cyanosis, clubbing, or edema. Neurological: Patient awake, alert, oriented as noted, cognitive function suspect not baseline intact; pupils equally reactive to light and accommodation,cranial nerves grossly normal, moving all 4 extremities, no focal deficits, sensation intact, speech appropriate, remains confused, FTN and HTS appropriate but very difficult following exam request, equivocal Babinski. Psychiatric: Affect appears normal, no acute evidence of depressive or anxiety feelings. Assessment & Plan Assessment/Plan (1) CVA (cerebral vascular accident): PLAN: Plan The patient is an 89 y/o M w/ PMHx: Pulmonary HTN/? COPD w/ Chronic Hypoxic Respiratory Failure (4L NC at home), ? CKD stage III per GFR trending, CAD s/p PCI, PAD s/p BL LE PCI with single stent in each LE per family report, HTN, HLD,Former tobacco use who presents to the [facility] ED on 02/10/2025 with history of last known well at approximately 1300 on day of presentation with onset at 2:30 PM significant dysarthria although at that pointwas drinking whiskey but only reports taking small sips not normally drinking per family report or at least they do not witness him routinely drinking and given his significant dysarthria/altered speech as well as confusion prompted EDevaluation. #1. Acute altered mentation, dysarthria/slurred speech concerning for Acute CVA: Will admit to PCU, will obtain MRI Brain with and without contrast given concern for possibly meningioma versus metastatic lesion, ECHO, PT/OT/Speech/Nutrition evaluation per protocol. Will allow permissive HTN, maintain on asa, add statin as attending to clarify medication w/ AM FLP, fall precautions. Mag, TSH, FLP, HgbA1c requested. Maintain on fall and aspiration precautions. Continue neurology consultation. #2. Incidentally noted solid pulm nodule right upper lobe as well as extensive lymphadenopathy: CTA head and neck with no hemodynamically significant narrowingor large vessel occlusion in the head or neck, solid pulmonary nodule right upper lobe measuring 1.4 cm with extensive lymphadenopathy throughout the visualized upper mediastinum, will obtain CT Chest with contrast but will need to be performed in 24 hours given recent contrast administration. #3. Incidentally noted right frontal lobe extra-axial focus of enhancement: CTAhead and neck with right frontal lobe extra-axial focus of enhancement up to 8 mm possibly meningioma however unable to rule out metastatic lesion, will as noted above obtain MRI with and without contrast given this finding. #4. Possible Chronic Kidney Disease Stage III, unclear subtype per GFR trending: Admission BUN/Cr 23/1.39, GFR 52, baseline renal function unknown and unknown comparison GFR, repeat BMP in AM to further elucidate if this is in facthis chronic level. Will need to continue to closely monitor renal function given #2, #3 with scans planned as noted. #5. CAD: Status post PCI, will continue aspirin, add high-dose statin given current presentation, attempt to clarify his home medications but in the interimgiven #1 will maintain on permissive hypertension. #6. Hypertension: Will maintain permissive hypertension with as needed agents per stroke protocol given #1. #7. Hyperlipidemia: Unclear if he is on statin, attempting to clarify home medications, will add high-dose regardless given #1, FLP in AM. #8. Former tobacco use: Encourage continued tobacco cessation. #9. Pulmonary HTN/COPD w/ Chronic Hypoxic Respiratory Failure (4L NC at home): Will maintain on oxygen with wean as tolerated to home oxygen supplementation. Currently in the ED following return from CT scan unfortunately off of oxygen requiring up to 10 L nasal cannula, will initiate on aggressive ATC duonebs, PRNalbuterol, HOB, IS parameters. #10. DVT prophylaxis: SCDs, will hold on chemoprophylaxis addition pending MRI is unclear potentially metastatic lesion in the brain. #9. CODE status: Patient MICHEL is his son and daughter and living will is currently in place. Discussed CODE status at length including difference betweenFULL code, DNR-CCA and DNR-CC status. Following discussions about the differences in these status, requested DNR-CCA, no intubation. Did discuss evensituation where patient's heart was still beating but he was in respiratory failure and requested to avoid intubation also at that time. Advanced Care Planning Face to Face Time: 16 minutes. Charges/Coding Visit Charges Inpatient E&M: 19043 Init Hosp L3 Procedures Hospitalists Procedures: 47523 Advncd Care Plan 30 Min 02/08/251848 <Electronically signed by Janice Sanford MD> Cosigner Signature (if applicable): CC: MARIANA Segal; Dr. Janice Sanford MD~ Signed ADDENDUM by Dr. Janice Sanford MD on 02/08/25 at 1854 Addendum Correction: Will maintain on Plavix and will add baby aspirin pending neurology evaluation. Additional history: Anxiety and depression: Will continue patient on citalopram regimen. 02/08/251853<Electronically signed by Janice Sanford MD> Cosigner Signature (if applicable): cc: MARIANA Segal; Dr. Janice Sanford MD ~* Signed ADDENDUM by Dr. Janice Sanford MD on 02/08/25 at 1857 Addendum Update: EtOH 223. Family denied heavy EtOH, notes remotely heavier. They report that he drinks only 1x weekly and it is given to him by his family only. Level indicative of intoxication contributing to this presentation. Unclear if he drinks daily and but notes to family thus to be cautious we will maintain on CIWA, obtain mag and Phos, maintain on thiamine, folic acid and multivitamin. 02/08/251856<Electronically signed by Janice Sanford MD> Cosigner Signature (if applicable): cc: MARIANA Segal; Dr. Janice Sanford MD ~* Signed [facility] Work Phone: [phone] 370-407507-13-2025 History and physical note [facility] Medical Records Department [address] [place] [address] H&P Exam - Hospitalist 02/08/251844 MR#: [id number] Acct: [id number] Name: CLARK LYLES Rep #:[id number] : 1935 89 From: Janice Sanford MD PCP: Brigitte Segal, VOICE INTERCEPT TECHNICIAN Status:REG ER Location: ED HPI - General General Date of Admission: 02/08/25 Date of Service: 02/08/25 Chief Complaint: Confusion, slurred speech. HPI Narrative The patient is an 89 y/o M w/ PMHx: Pulmonary HTN/? COPD w/ Chronic Hypoxic Respiratory Failure (4LNC at home), ? CKD stage III per GFR trending, CAD s/p PCI, PAD s/p BL LE PCI with single stent in each LE per family report, HTN, HLD,Former tobacco use who presents to the [facility] ED on 02/10/2025 with history of last known well at approximately 1300 on day of presentation with onset at 2:30 PM significant dysarthria although at that pointwas drinking whiskey but only reports taking small sips not normally drinking per family report or at least they do not witness him routinely drinking and given his significant dysarthria/altered speech as well as confusion prompted EDevaluation. In the ED initial NIH stroke scale assessment per neurology noted to be 1 for mild to moderate dysarthria. Family does report that when he was found and initially noted to be confused it was when he was getting up from a nap specifically. When family was bringing him in to the hospital to attempt rogelio evaluated he was very weak and slid to the floor but there was no trauma or loss of consciousness. Workup in the ED included T98, heart rate 58, BP 118/65, respiratory rate 19, 90% on 6 L nasal cannula with most recent repeat vitals heart rate 59, BP 119/61, respiratory rate 20, 91% on 6L nasal cannula, CBC with WC 10.1, he 116.3, platelet 200 with increased immature granulocytes, unremarkable coags, BMP with come DexPak 20, anion gap 18, BUN/creat 23/1.39, GFR 52, glucose 102, troponin initial 29, ethyl alcohol pending upon evaluation,CT of the head with no acute intracranial findings, CTA head and neck with no hemodynamically significant narrowing or large vessel occlusion in the head or neck, solid pulmonary nodule right upper lobe measuring 1.4 cm with extensive lymphadenopathy throughout the visualized upper mediastinum, right frontal lobe extra-axial focus of enhancement up to 8 mm possibly meningioma however unable to rule out metastatic lesion, CT cervical spine with no acute osseous finding of the cervical spine, EKG with sinus rhythm with no acute evidence of ischemia. Patient was a stroke alert evaluation and was deemed not a candidate for tenecteplase. [facility] Medical History Chronic hypoxic respiratory failure, on home oxygen therapy Pulmonary hypertension COPD (chronic obstructive pulmonary disease) COVID-19 virus detected (08/23/20) Anxiety and depression Chronic anemia Pneumonia due to COVID-19 virus GI bleed (12/2019) Atherosclerosis of coronary artery of [place] heart without angina pectoris Peripheral vascular occlusive disease Hyperlipidemia Essential (primary) hypertension GERD (gastroesophageal reflux disease) BPH (benign prostatic hyperplasia) Incontinence Diverticulosis Home Medications ?Medication ?Instructions ?Recorded ?Last Taken ?Type citalopram 20 mg tablet 20 mg PO DAILY DEPRESSION 08/01/23 History multivitamin 1 ea PO DAILY HEALTH MINE[place] CE 05/16/17 08/01/23 History tamsulosin 0.4 mg capsule 0.4 mg PO DAILY PROSTATE 01/1608/01/23 History ascorbic acid (vitamin C) 1,000 mg 1,000 mg PO DAILY S UPPLEMENT 01/18/20 08/01/23 History tablet atorvastatin 10 mg tablet 10 mg PO DAILY CHOLESTEROL 0 08/25/20 08/01/23 History clopidogrel 75 mg tablet 75 mg PO DAILY BLOOD THINNER 08/25/20 08/01/23 History finasteride 5 mg tablet 5 mg PO DAILY PROSTATE 08/2608/01/23 History metoprolol succinate 25 mg 25 mg PO DAILY BLOOD PRESSU RE 08/01/23 08/01/23 History tablet,extended release 24 hr Lactobacillus acidophilus 1 1,000 mmu cells PO DAILY # 30 caps 08/04/23 Unknown Rx billion cell capsule hydrochlorothiazide 25 mg tablet 12.5 mg PO DAILY BLOO D PRESSURE 09/07/24 Unknown History pantoprazole 40 mg tablet,delayed 40 mg PO DAILY gerd 09/07/24 Unknown History release amlodipine 5 mg tablet 10 mg (2 x 5 mg) PO DAILY bp 30 09/15/24 Unknown Rx days #0 tabs Allergy/AdvReac Type Severity Reaction Status Date / Time Sulfa (Sulfonamide Allergy Rash Verified 02/08/25 18:40 Antibiotics) lisinopril AdvReac Other Verified 02/08/25 18:40 Family History Father CVA (cerebral vascular accident) Mother CVA (cerebral vascular accident) Hypertension Surgical History History of colonoscopy (12/2019) History of coronary artery stent placement (09/08/19) History of angioplasty of peripheral vessel (08/2017) History of herniorrhaphy History of esophagogastroduodenoscopy (EGD) (12/2019) Social History (Updated 02/08/25 @ 18:[address] Janice Sanford MD) household members: none housing: house Smoking Status: Former smoker how long ago did patient quit smoking: Quit 1999, smoked heavy pipe since youthuntil quit, occasional cigarette. alcohol intake: current alcohol intake frequency: a few times a week Alcohol type: hard liquor substance use type: does not use ROS ROS Narrative Admission Review of Systems: CONSTITUTIONAL: No weight loss, fever, chills, + weakness or fatigue. HEENT: Eyes: No visual loss, blurred vision, double vision or yellow sclerae. Ears, Nose, Throat: No hearing loss, sneezing, congestion, runny nose or sore throat. SKIN: No rash or itching, lesions, wounds. CARDIOVASCULAR: No chest pain, chest pressure or chest discomfort, palpitations,edema, orthopnea, syncopal events. RESPIRATORY: + Chronic dyspnea with chronic oxygen supplementation. No recent marked productive cough, wheezing, hemoptysis. GASTROINTESTINAL: No anorexia, nausea, vomiting or diarrhea, abdominal pain, melena, BRBPR. GENITOURINARY: No dysuria, frequency, urgency or retention. NEUROLOGICAL: + Dysarthria, slurred speech. No headache, dizziness, syncope, paralysis, ataxia, numbness or tingling in the extremities, focal weakness, change in bowel or bladder control, seizure. MUSCULOSKELETAL: + muscle, back pain, joint pain or stiffness. HEMATOLOGIC: No anemia. + Easy bleeding/bruising. LYMPHATICS: No enlarged nodes. No history of splenectomy. PSYCHIATRIC: No history of depression or anxiety. ENDOCRINOLOGIC: No reports of sweating, cold or heat intolerance. No polyuria orpolydipsia. ALLERGIES: No history of asthma, hives, eczema or rhinitis. Vital Signs Vital Signs Vital Signs: 02/08/25 16:48 Temperature 98 F Temperature Source Oral Weight Weight: 156 lb Body Mass Index (BMI) 22.4 Physical Exam Narrative Physical Examination: General: Awake, alert, oriented to self, place, year but gives the wrong month, gives correct holiday recently, remains cooperative, seated upright in ED bed, severely hard of hearing, speech is improved per family report but still confused. Skin: Normal color, normal turgor, no icterus, no cyanosis except occasional stage ecchymoses, abrasion. HEENT: AT/NC, EOMI, PERRLA, MMM, no carotid bruits or JVD noted. Lungs: CTA bilaterally, moderate effort, mild decrease BL bases, no rales, ronchi or wheezing. Heart: Regular rate and rhythm; no gallop, rub audible. Abdomen: Soft, NTTP, ND, normal BS, no HSM. Extremities: No cyanosis, clubbing, or edema. Neurological: Patient awake, alert, oriented as noted, cognitive function suspect not baseline intact; pupils equally reactive to light and accommodation,cranial nerves grossly normal, moving all 4 extremities, no focal deficits, sensation intact, speech appropriate, remains confused, FTN and HTS ap propriate but very difficult following exam request, equivocal Babinski. Psychiatric: Affect appears normal, no acute evidence of depressive or anxiety feelings. Assessment & Plan Assessment/Plan (1) CVA (cerebral vascular accident): PLAN: Plan The patient is an 89 y/o M w/ PMHx: Pulmonary HTN/? COPD w/ Chronic Hypoxic Respiratory Failure (4LNC at home), ? CKD stage III per GFR trending, CAD s/p PCI, PAD s/p BL LE PCI with single stent in each LE per family report, HTN, HLD,Former tobacco use who presents to the [facility] ED on 02/10/2025 with history of last known well at approximately 1300 on day of presentation with onset at 2:30 PM significant dysarthria although at that pointwas drinking whiskey but only reports taking small sips not normally drinking per family report or at least they do not witness him routinely drinking and given his significant dysarthria/altered speech as well as confusion prompted EDevaluation. #1. Acute altered mentation, dysarthria/slurred speech concerning for Acute CVA: Will admit to PCU,will obtain MRI Brain with and without contrast given concern for possibly meningioma versus metastatic lesion, ECHO, PT/OT/Speech/Nutrition evaluation per protocol. Will allow permissive HTN, maintain on asa, add statin as attending to clarify medication w/ AM FLP, fall precautions. Mag, TSH, FLP, HgbA1c requested. Maintain on fall and aspiration precautions. Continue neurology consultation. #2. Incidentally noted solid pulm nodule right upper lobe as well as extensive lymphadenopathy: CTAhead and neck with no hemodynamically significant narrowingor large vessel occlusion in the head orneck, solid pulmonary nodule right upper lobe measuring 1.4 cm with extensive lymphadenopathy throughout the visualized upper mediastinum, will obtain CT Chest with contrast but will need to be performed in 24 hours given recent contrast administration. #3. Incidentally noted right frontal lobe extra-axial focus of enhancement: CTAhead and neck with right frontal lobe extra-axial focus of enhancement up to 8 mm possibly meningioma however unable to rule out metastatic lesion, will as noted above obtain MRI with and without contrast given this finding. #4. Possible Chronic Kidney Disease Stage III, unclear subtype per GFR trending: Admission BUN/Cr 23/1.39, GFR 52, baseline renal function unknown and unknown comparison GFR, repeat BMP in AM to further elucidate if this is in facthis chronic level. Will need to continue to closely monitor renal function given #2, #3 with scans planned as noted. #5. CAD: Status post PCI, will continue aspirin, add high-dose statin given current presentation, attempt to clarify his home medications but in the interimgiven #1 will maintain on permissive hypertension. #6. Hypertension: Will maintain permissive hypertension with as needed agents per stroke protocol given #1. #7. Hyperlipidemia: Unclear if he is on statin, attempting to clarify home medications, will add high-dose regardless given #1, FLP in AM. #8. Former tobacco use: Encourage continued tobacco cessation. #9. Pulmonary HTN/COPD w/ Chronic Hypoxic Respiratory Failure (4L NC at home): Will maintain on oxygen with wean as tolerated to home oxygen supplementation. Currently in the ED following return fromCT scan unfortunately off of oxygen requiring up to 10 L nasal cannula, will initiate on aggressiveATC duonebs, PRNalbuterol, HOB, IS parameters. #10. DVT prophylaxis: SCDs, will hold on chemoprophylaxis addition pending MRI is unclear potentially metastatic lesion in the brain. #9. CODE status: Patient MICHEL is his son and daughter and living will is currently in place. Discussed CODE status at length including difference betweenFULL code, DNR-CCA and DNR-CC status. Following discussions about the differences in these status, requested DNR-CCA, no intubation. Did discuss e vensituation where patient's heart was still beating but he was in respiratory failure and requested to avoid intubation also at that time. Advanced Care Planning Face to Face Time: 16 minutes. Charges/Coding Visit Charges Inpatient E&M: 67977 Init Hosp L3 Procedures Hospitalists Procedures: 90204 Advncd Care Plan 30 Min 02/08/25 184 Cosigner Signature (if applicable): CC: MARIANA Segal; Dr. Janice Sanford MD~ Signed ADDENDUM by Dr. Janice Sanford MD on 02/08/25 at 1854 Addendum Correction: Will maintain on Plavix and will add baby aspirin pending neurology evaluation. Additional history: Anxiety and depression: Will continue patient on citalopram regimen. 02/08/251853 Cosigner Signature (if applicable): cc: MARIANA Segal; Dr. Janice Sanford MD ~* Signed ADDENDUM by Dr. Janice Sanford MD on 02/08/25 at 1857 Addendum Update: EtOH 223. Family denied heavy EtOH, notes remotely heavier. They report that he drinks only 1x weekly and it is given to him by his family only. Level indicative of intoxication contributing to this presentation. Unclear if he drinks daily and but notes to family thus to be cautious we will maintain on CIWA, obtain mag and Phos, maintain on thiamine, folic acid and multivitamin. 02/08/251856 Cosigner Signature (if applicable): cc: MARIANA Segal; Dr. Janice Sanford MD ~* Signed [facility]04-04-2025 Telephone encounter Note* Telephone Encounter - Jaqueline Andre RN - 10/31/2024 3:29 PM EDT Palliative Medicine Referral Assessment Referral Accepted: No, Reason for Denial: Chart reviewed, pal med order meant for [facility] in [place]. Jaqueline Andre RN October 31, 2024 [facility]04-04-2025 Miscellaneous Notes* Telephone Encounter - Jaqueline Andre RN - 10/31/2024 3:29 PM EDT Palliative Medicine Referral Assessment Referral Accepted: No, Reason for Denial: Chart reviewed, pal med order meant for [facility] in [place]. Jaqueline Andre RN October 31, 2024 documented in this encounterNationwide [facility]03-[facility]-20[facility] Telephone encounter Note * Telephone Encounter - Shira Mcgill RN - 10/27/2024 5:42 PM EDT Pts daughter Pili called back in and [...] on her brothers phone number as well. [facility]03-31-2025 Miscellaneous Notes* Telephone Encounter - Shira Mcgill RN - 10/27/2024 5:42 PM EDT Pts daughter Pili called back in and [...] on her brothers phone number as well. * Telephone Encounter - Shira Mcgill RN - 10/27/2024 5:12 PM EDT Pt called and is notified of providers message. Pt voices understanding and states he does not wantpalliative care. I told Pt he should talk it over with his family. Called and left a detailed voicemail notifying patient's Son Quincy of providers message and Pts reply. Clinic phone number was left in case he had any questions, or talked the Pt into accepting palliative care. Shira Mcgill RN * Telephone Encounter - Brigitte Segal APRN.JANET - 10/27/2024 4:50 PM EDT Please ask patient if he wants a palliative care consult? Palliative care is not end-of-life care but symptom management and chronic disease. Consult placed if patient wishes to be referred. * Telephone Encounter - Amita Kim LPN - 10/27/2024 3:47 PM EDT Rohan with [facility] calls to report family is requesting order for palliative care. Fax order to [facility] [place]. Rohan also reports he saw pt today and is extending nurse to once a week x 2 weeks. Pt will then be discharged from Nursing. Rohan reports that Pulmonary gave new dx for pt of COPD and pulmonary htn. Amita Kim LPN documented in this encounterNationwide Children'[facility]03-31-2025 Telephone encounter Note * Telephone Encounter - Shira Mcgill RN - 10/27/2024 5:12 PM EDT Pt called and is notified of providers message. Pt voices understanding and states he does not wantpalliative care. I told Pt he should talk it over with his family. Called and left a detailed voicemail notifying patient's Son Quincy of providers message and Pts reply. Clinic phone number was left in case he had any questions, or talked the Pt into accepting palliative care. Shira Mcgill RN [facility]03-31-2025 Telephone encounter Note* Telephone Encounter - Brigitte Segal APRN.CNP - 10/27/2024 4:50 PM EDT Please ask patient if he wants a palliative care consult? Palliative care is not end-of-life care but symptom management and chronic disease. Consult placed if patient wishes to be referred. [facility]03-31-2025 Telephone encounter Note* Telephone Encounter - Amita Kim LPN - 10/27/2024 3:47 PM EDT Rohan with [facility] calls to report family is requesting order for palliative care. Fax order to [facility] in [place]. Rohan also reports he saw pt today and is extending nurse to once a week x 2 weeks. Pt will then be discharged from Nursing. Rohan reports that Pulmonary gave new dx for pt of COPD and pulmonary htn. Amita Kim LPN [facility]03-20-2025 Evaluation note* Diagnosis Onset Date Resolution Status Admit Date COPD (chronic obstructive pulmonary disease) inactive October 16 12:57pm Pulmonary hypertension inactive [facility] 2024 12:57pm CVA (cerebral vascular accident) acute February 08, 2025 7:47pm [facility] Work Phone: 1(632) 390-818303-19-2025 Telephone encounter Note* Telephone Encounter - Radha Green, ZACKARY - 10/15/2024 3:02 PM EDT Paulino- nurse- [facility]- reports he did patient eval today and will extend HH visits to 1 x week for 2 weeks. Pt is still on 4 L O2 after pneumonia. Pt will see pulm tomorrow. [facility]03-19-2025 Miscellaneous Notes* Telephone Encounter - Radha Green, ZACKARY - 10/15/2024 3:02 PM EDT Paulino- nurse- [facility]- reports he did patient eval today and will extend [facility] visits to 1 x week for 2 weeks. Pt is still on 4 L O2 after pneumonia. Pt will see pulm tomorrow. documented in this encounterNationwide [facility]03-07-2025 Telephone encounter Note * Telephone Encounter - Shirley Rivera MA - 10/03/2024 3:55 PM EST Detailed message left on secure line for Jamie [facility] Shirley Rivera MA October 03, 2024 3:56 PM [facility]03-07-2025 Miscellaneous Notes* Telephone Encounter - Shirley Rivera MA - 10/03/2024 3:55 PM EST Detailed message left on secure line for Jamie [facility] Shirley Rivera MA October 03, 2024 3:56 PM * Telephone Encounter - Brigitte Segal APRN.CNP - 10/03/2024 2:59 PM EST Yes. Please increase O2 to 4l. Thank you for the recert. * Telephone Encounter - Mary Balderas RN - 10/03/2024 2:49 PM EST Jamie with [facility] is calling due to he saw [...] is wondering if patient should increase O2 to4L with activity, or should he have a round of steroids, or if anything should be done at this time. Patient is anxious to get off of oxygen due to he is a very active person. please review and advise, Jamie needs called back with information. documented in this encounterNationwide Children'[facility] Hospital03-07-2025 Telephone encounter Note * Telephone Encounter - Brigitte Segal APRN.CNP - 10/03/2024 2:59 PM EST Yes. Please increase O2 to 4l. Thank you for the recert. [facility]03-07-2025 Telephone encounter Note* Telephone Encounter - Mary Balderas RN - 10/03/2024 2:49 PM EST Jamie with [facility] is calling due to he saw [...] is wondering if patient should increase O2 to4L with activity, or should he have a round of steroids, or if anything should be done at this time. Patient is anxious to get off of oxygen due to he is a very active person. please review and advise, Jamie needs called back with information. [facility]02-21-2025 Telephone encounter Note* Telephone Encounter - Brigitte Segal APRN.CNP - 09/19/2024 3:33 PM EST Sounds good. Agree. [facility]02-21-2025 Miscellaneous Notes* Telephone Encounter - Brigitte Segal APRN.CNP - 09/19/2024 3:33 PM EST Sounds good. Agree. * Telephone Encounter - Whit Sheridan RN - 09/19/2024 2:20 PM EST Rohan calling with [facility] Physical Therapy with plan of care for patient. Pt will be seen 1x per week for 4 weeks for functional mobility training. No call back needed if provider agreeable. Whit Sheridan RN documented in this encounterNationwide Children'S Hospital02-21-2025 Instructions* Patient Instructions* Brigitte Segal APRN.CNP - 09/19/2024 3:24 PM EST 1) Mirtazapine 7.5 mg at bedtime for sleep 2) Follow up in 6 months documented in this encounterNationwide Children'S Hospital02-21-2025 NoteHNO ID: [id number] Author: BRIGITTE SEGAL APRN.CNP Service: ? Author [...] lipoma performed by Dr. Robe Mackenzie at [facility] REVSC OPN/PRQ FEM/POP W/STNT/ANGIOP VSL [...] 6. Parkinson's disease with (more content not included)...[facility]02-21-2025 History of Present illness Narrative* Brigitte Segal APRN.GOLF BALL COVER TREATER - 09/19/2024 3:08 PM EST This is a 88 year old male who presents today with: Patient presents with: Hospital F/U HISTORY OF PRESENT ILLNESS: Clark Lyles is a 88 year old male. Patient presents with: Hospital F/U Went to the hospital with hypoxia and encephalopathy. Treated while hospital with antibiotics. Alsohome with oxygen continuous., Eating ok.Taking Boost. No [...] lipoma performed by Dr. Robe Mackenzie at [facility] REVSC OPN/PRQ FEM/POP W/STNT/ANGIOP SM [...] no tremor 7. 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- ICD9: 414.01, ICD10: I25.10 Stable 8. Acute [...] improvement. Brigitte Segal APRN.JANET documented in this encounterNationwide Children'S Hospital02-21-2025 Telephone encounter Note * Telephone Encounter - Whit Sheridan RN - 09/19/2024 2:20 PM EST Rohan calling with [facility] Physical Therapy with plan of care for patient. Pt will be seen 1x per week for 4 weeks for functional mobility training. No call back needed if provider agreeable. Whit Sheridan RN [facility]02-20-2025 Telephone encounter Note* Telephone Encounter - Shirley Rivera MA - 09/18/2024 10:47 AM EST HHN was not at home, just granddaughter. She did report no cough. Pt has appointment with PCP tomorrow. [facility]02-20-2025 Miscellaneous Notes* Telephone Encounter - Shirley Rivera MA - 09/18/2024 10:47 AM EST HHN was not at home, just granddaughter. She did report no cough. Pt has appointment with PCP tomorrow. * Telephone Encounter - Brigitte Segal APRN.JANET - 09/18/2024 10:41 AM EST Absolutely keep at 3L. Any report on lung sounds? * Telephone Encounter - Tracy Cedillo RN - 09/18/2024 9:50 AM EST Haley from [facility] calls and reports that granddaughter had [...] with provider tomorrow 09/19/2024. Please Contact Haley turk [phone]. Tracy Cedillo RN * Telephone Encounter - Brigitte Segal APRN.CNP - 09/18/2024 8:08 AM EST Patient will need to stay on oxygen until he follows up with pulmonary. I have not seen him since February 2024 therefore I am not really able to shed any light on his oxygen use. Not common to use oxygen for only a week. * Telephone Encounter - Tracy Cedillo RN - 09/17/2024 12:52 PM EST Hellen calling from [facility] to report plan of care for patient and custodial will visit patient 1 time a week for 1 week and 2 times a week for 2 weeks. Nursing Home will work with patient on wound care (patient has skin tear to right elbow) and management of O2 levels. Hellen had no orders for wound care. Hellen cleaned wound and put on Vaseline gauze and band aid. Hellen also notes that patient is on Oxygen and thought that he was only going to be on oxygen for a week. Patient does not see barrel driller for a month. Hellen did not know if provider wanted to address Oxygen use. Patient is scheduled to see PCP 09/19/2024. No call back needed unless there are questions. Tracy Cedillo RN documented in this encounterNationwide Children'[facility] Hospital02-20-2025 Telephone encounter Note * Telephone Encounter - Brigitte Segal APRN.CNP - 09/18/2024 10:41 AM EST Absolutely keep at 3L. Any report on lung sounds? [facility]02-20-2025 Telephone encounter Note* Telephone Encounter - Tracy Cedillo RN - 09/18/2024 9:50 AM EST Haley from [facility] calls and reports that granddaughter had [...] provider tomorrow 09/19/2024. Please Contact Haley back [phone]. Tracy Cedillo RN [facility]02-20-2025 Telephone encounter Note* Telephone Encounter - Brigitte Segal APRN.CNP - 09/18/2024 8:08 AM EST Patient will need to stay on oxygen until he follows up with pulmonary. I have not seen him since February 2024 therefore I am not really able to shed any light on his oxygen use. Not common to use oxygen for only a week. [facility]02-19-2025 Telephone encounter Note* Telephone Encounter - Tracy Cedillo RN - 09/17/2024 12:52 PM EST Hellen calling from [facility] to report plan of care for patient and custodial will visit patient 1 time a week for 1 week and 2 times a week for 2 weeks. Nursing Home will work with patient on wound care (patient has skin tear to right elbow) and management of O2 levels. Hellen had no orders for wound care. Hellen cleaned wound and put on Vaseline gauze and band aid. Hellen also notes that patient is on Oxygen and thought that he was only going to be on oxygen for a week. Patient does not see barrel driller for a month. Hellen did not know if provider wanted to address Oxygen use. Patient is scheduled to see PCP 09/19/2024. No call back needed unless there are questions. Tracy Cedillo RN [facility]02-17-2025 Telephone encounter Note* Telephone Encounter - Brigitte Segal APRN.CNP - 09/15/2024 5:27 PM EST Patient is an 88-year-old man who was [...] requesting something to help him calm for theMRI. I feel it would be at a low intensity as risk with sedation while on Airvo. No further testingas I do not feel that he had [...] beginning and ceftriaxone was changed to Zosyn. Urinaryagents negative. Sputum culture showed normal argenis. Completed [...] 5 mg daily to 10 mg daily [facility]02-17-2025 Miscellaneous Notes* Telephone Encounter - Brigitte Segal APRN.CNP - 09/15/2024 5:27 PM EST Patient is an 88-year-old man who was [...] requesting something to help him calm for theMRI. I feel it would be at a low intensity as risk with sedation while on Airvo. No further testingas I do not feel that he had [...] beginning and ceftriaxone was changed to Zosyn. Urinaryagents negative. Sputum culture showed normal argenis. Completed [...] 5 mg daily to 10 mg daily * Telephone Encounter - Brigitte Sgeal APRN.CNP - 09/15/2024 4:41 PM EST Yes. Of course * Telephone Encounter - Tracy Cedillo RN - 09/15/2024 3:30 PM EST Rochelle from [facility] calls and states that patient is being discharged from [facility] PCU on 09/05/2024 with the diagnosis of hypoxia and acute respiratory failure. Rochelle asking if provider willing to follow patient with orders for custodial, physical therapy, occupational therapy and social work. If agreeable please give Rochelle a call back . Thank you, Tracy Cedillo RN documented in this encounterNationwide [facility]02-17-2025 Telephone encounter Note * Telephone Encounter - Brigitte Segal APRN.CNP - 09/15/2024 4:41 PM EST Yes. Of course [facility]02-17-2025 Telephone encounter Note* Telephone Encounter - Tracy Cedillo RN - 09/15/2024 3:30 PM EST Rochelle from [facility] calls and states that patient is being discharged from [facility] PCU on 09/05/2024 with the diagnosis of hypoxia and acute respiratory failure. Rochelle asking if provider willing to follow patient with orders for custodial, physical therapy, occupational therapy and social work. If agreeable please give Rochelle a call back . Thank you, Tracy Cedillo RN [facility]02-17-2025 [facility] Medical Records Department [address] [place] [id number] Discharge Summary 09/15/24 0952 MR#: [id number] Acct: [id number] Name: CLARK LYLES Rep #: [id number] : 1935 88 From: John Soliz MD PCP: MARIANA Humphreys Status:[id number] Prov[facility] Date of Admission: 09/07/24 Date of [...] 03/17/14 multivitamin 1 ea PO DAILY [facility] 05/16/17 tamsulosin 0.4 mg capsule 0.4 mg [...] Palpation of Joints or (more content not included)...[facility]02-11-2025 Telephone encounter Note* Telephone Encounter - Brigitte Segal APRN.JANET - 09/09/2024 10:00 AM EST Patient was admitted to [facility] on September 07 to 2024 for [...] is a DNR CC with no intubation. [facility]02-11-2025 Miscellaneous Notes* Telephone Encounter - Brigitte Segal APRN.CNP - 09/09/2024 10:00 AM EST Patient was admitted to [facility] on September 07 to 2024 for [...] CC with no intubation. documented in this encounterNationwide Children'S Hospital02-09-2025 Evaluation note* Diagnosis Onset Date Resolution Status Admit Date Hypoxia inactive September 07, 2024 12:42pm Pulmonary hypertension acute [facility] 2024 12:57pm COPD (chronic obstructive pulmonary disease) chronic October 16, 025 12:57pm [facility] Work Phone: 1(390) 449-519908-29-2024 Instructions* Patient Instructions* Brigitte Segal APRN.CNP - 03/27/2024 8:18 AM EDT 1) eliminate omeprazole but continue pantoprazole 2) discontinue trazodone, replaced with Tylenol PM 3) follow up in as scheduled documented in this encounterNationwide Children'S Hospital08-29-2024 NoteHNO ID: [id number] Author: BRIGITTE SEGAL APRN.CNP Service: ? Author [...] lipoma performed by Dr. Robe Mackenzie at [facility] 03-18-14: REVSC OPN/PRQ FEM/POP W/STNT/ANGIOP [...] - Controlled - Counse (more content not included)...[facility]08-29-2024 History of Present illness Narrative* Brigitte Segal APRN.GOLF BALL COVER TREATER - 03/27/2024 8:03 AM EDT This is [...] lipoma performed by Dr. Robe Mackenzie at [facility] 03-18-14: REVSC OPN/PRQ FEM/POP W/STNT/ANGIOP [...] as needed for worsening/no improvement. Brigitte Segal APRN.CNP documented in this encounterNationwide Children'S Hospital08-15-2024 Telephone encounter Note * Telephone Encounter [...] Velez LPN March 13, 2024 10:13 AM [facility]08-15-2024 Miscellaneous Notes* Telephone Encounter - Renetta [...] 13, 2024 10:13 AM documented in this encounterNationwide Children'S Hospital07-30-2024 Telephone encounter Note * Telephone Encounter - Shirley Rivera MA - 02/26/2024 8:28 AM EDT Patient was made aware of the results. Patient verbalizes understanding. Shirley Rivera Ma [facility]07-30-2024 Miscellaneous Notes* Telephone Encounter - Shirley [...] does on the pantoprazole. documented in this encounterNationwide Children'S Hospital07-30-2024 Telephone encounter Note * Telephone Encounter - Brigitte Segal APRN.CNP - 02/26/2024 8:00 AM EDT Patient does not have MyChart. Please let him know that he was negative for H. pylori the bacteria that causes ulcers. Blood counts are okay, kidney function liver function, and pancreas are all normal. Lets see how he does on the pantoprazole. [facility]07-29-2024 Instructions* Patient Instructions* Brigitte Segal APRN.CNP - 02/25/2024 8:50 AM EDT 1) Check labs 2) Flagyl 500 mg 3 x day 3) Cipro 500 mg 2 x day 4) Start pantoprazole 40 mg daily 5) Follow up in 1 month documented in this encounterNationwide Children'S Hospital07-29-2024 NoteHNO ID: [id number] Author: BRIGITTE SEGAL APRN.CNP Service: ? Author [...] lipoma performed by Dr. Robe Mackenzie at [facility] REVSC OPN/PRQ FEM/POP W/STNT/ANGIOP SM [...] - Recheck in 1 month Brigitte Segal APRN.[facility]07-29-2024 History of Present illness Narrative* Brigitte Segal APRN.[facility] - 02/25/2024 8:35 AM EDT This [...] lipoma performed by Dr. Robe Mackenzie at [facility] REVSC OPN/PRQ FEM/POP W/STNT/ANGIOP SM [...] - Recheck in 1 month Brigitte Segal APRN.JANET documented in this encounterNationwide Children'S Hospital06-07-2024 Telephone encounter Note * Telephone Encounter - Shirley Rivera MA - 01/04/2024 3:40 PM EDT Letter mailed to patient [facility]06-07-2024 Miscellaneous Notes* Telephone Encounter - Shirley Rivera MA - 01/04/2024 3:40 PM EDT Letter mailed to patient * Telephone Encounter - Shirley Rivera MA - 01/01/2024 4:48 PM EDT Attempted to call, no answer * Telephone Encounter - Walter Gomez MD - 12/28/2023 2:27 PM EDT Let him know his labs are stable. documented in this encounterNationwide Children'S Hospital06-04-2024 Telephone encounter Note * Telephone Encounter - Shirley Rivera MA - 01/01/2024 4:48 PM EDT Attempted to call, no answer [facility]06-03-2024 Telephone encounter Note* Telephone Encounter - Victoria Gleason - 12/31/2023 2:51 PM EDT Patient has been identified by name and date of : Yes, Provider Justin Durbin PA-C Date 12/31/2023 Time 2:54 pm Patient [facility] phones for refill(s): Requested Prescriptions Pending Prescriptions [...] 07/01/2024 Please advise. Thank you. Victoria Berkowitz. [facility]06-03-2024 Miscellaneous Notes* Telephone Encounter - Victoria [...] Thank you. Victoria Berkowitz. documented in this encounterNationwide Children'S Hospital05-31-2024 Telephone encounter Note * Telephone Encounter - Walter Gomez MD - 12/28/2023 2:27 PM EDT Let him know his labs are stable. [facility] Work Phone: 1(234) 641-467105-28-2024 Instructions* Patient Instructions* Radha Durbin PA-C - 12/25/2023 9:46 AM EDT Please schedule as soon as possible [place] [facility] documented in this encounterNationwide Children'S Hospital05-28-2024 History of Present illness Narrative* Radha Durbin PA-C - 12/25/2023 9:00 AM EDT 88 year old male with c/o here for follow up. 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 08/02/2023 echocardiogram [facility]: LV size WNL, mild concentric LVH, [...] to suggest ischemia. 02/08/2022 last cardiology visit [place]: [employer] feels he is doing well and stable. [...] Lymph 1.00 - 4.00 k/uL 0.81 (L) [place]% % 9.0 Abs [place] <0.87 k/uL 0.99 (H) Eosin% % 2.6 [...] because he felt bad in the mornings. Filion better after he stopped. Can think of [...] mg 2 capsules nightly Also taking saw palmetto Urine flow: good, gets up about twice [...] lipoma performed by Dr. Robe Mackenzie at [facility] REVSC OPN/PRQ FEM/POP W/STNT/ANGIOP SM [...] Chronic Blood Loss Coronary Artery Disease Involving Telida Coronary Artery of Telida Heart S/P Primary Angioplasty With Coronary Stent [...] 07/30/2023 Behavioral Health Screening Never done Covid-19 Vaccine(2022-24 season) due on 08/31/2023 LDL Cholesterol due [...] refill. ASSESSMENT/PLAN: 1. 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 Radha Durbin PA-C documented in this encounterNationwide Children'S Hospital05-28-2024 NoteHNO ID: [id number] Author: Radha DURBIN PA-C Service: ? Author Type: Physician Grove Superintendent Type: Progress Notes Filed: 12/26/2023 14:22 Note Text: 88 year old male with c/o here for follow up. 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 08/02/2023 echocardiogram [facility]: LV size WNL, mild concentric LVH, [...] to suggest ischemia. 02/08/2022 last cardiology visit [place]: [employer] feels he is doing well and stable. [...] Lymph 1.00 - 4.00 k/uL 0.81 (L) [place]% % 9.0 Abs [place] <0.87 k/uL 0.99 (H) Eosin% % 2.6 [...] because he felt bad in the mornings. Filion bett (more content not included)...[facility]05-16-2024 Telephone encounter Note* Telephone Encounter - Kassandra Quispe RN - 12/13/2023 4:55 PM EDT Spoke with patient. Gave permission for sonQuincy to receive medical information. Spoke with Quincy and let him know script was sent. Kassandra Quispe RN [facility]05-16-2024 Miscellaneous Notes* Telephone Encounter - Kassandra Quispe RN - 12/13/2023 4:55 PM EDT Spoke with patient. Gave permission for sonQuincy to receive medical information. Spoke with Quincy [...] 12/25/2023 Please return call to Quincy venegas [phone] Please advise. Thank you. Danita Staples. documented in this encounterNationwide Children'S Hospital05-16-2024 Telephone encounter Note * Telephone Encounter [...] we are unable to give him information. [facility]05-16-[facility] Telephone encounter Note* Telephone Encounter - [...] 12/25/2023 Please return call to Quincy venegas [phone] Please advise. Thank you. Danita Staples. [facility]02-27-[facility] History of Present illness Narrative* Radha Durbin PA-C - 09/25/2023 9:00 AM EST 87 year old male with c/o here for 3 month follow up Hospital discharge summary Facility: [facility] Date of admission 08/01/2023 Date of discharge 08/04/2023 Discharge diagnoses and Plan 1. Acute hypoxia: Admitted through [facility] emergency department with complaint of progressive [...] daughter in the 80's percentile. Went to [facility] and sent to ER. Placed on [...] Rocephin and Zithromax was continued 08/02/2023 echocardiogram [facility]: LV size WNL, mild concentric LVH, [...] dehydration or weakness. 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 02/08/2022 last cardiology visit [place]: [employer] feels he is doing well and stable. [...] Lymph 1.00 - 4.00 k/uL 0.81 (L) [place]% % 9.0 Abs [place] <0.87 k/uL 0.99 (H) Eosin% % 2.6 [...] because he felt bad in the mornings. Filion better after he stopped. 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 Robe Mackenzie at [facility] REVSC OPN/PRQ FEM/POP W/STNT/ANGIOP VSL [...] Chronic Blood Loss Coronary Artery Disease Involving Telida Coronary Artery of Telida Heart S/P Primary Angioplasty With Coronary Stent [...] refill. ASSESSMENT/PLAN: 1. 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 S/P primary angioplasty with coronary stent - ICD9: V45.82, ICD10: Z95.5 3. Angina pectoris (HCC) - ICD9: 413.9, ICD10: I20.9 4. Atherosclerosis of aorta (HCC) - ICD9: 440.0, ICD10: I70.0 Stable, no ischemic sx, see [place] cardiology 5. Essential hypertension, benign - ICD9: [...] which included preparing to see the patient, [id number] patient care, completing clinical documentation, obtaining and/or [...] data. Radha Durbin PA-C documented in this encounterNationwide Children'S Hospital01-06-2024 Discharge summary Author Jerrell Faith [facility] August 04, 2023 12:59pm Note Date/Time August 04, 2023 11 :14am [facility] Medical Records Department [address] [place] [address] Discharge Summary 08/04/23 1114 MR#: [id number] Acct: [id number] Name: CLARK LYLES Rep #:[id number] : 1935 87 From: Jerrell Faith MD PCP: CHRISTINE Brown Status:ADM I N Location: [place] [id number] Providers Date of Admission: 08/01/23 Date of [...] 76.4 H, Lymph % (Auto) 8.9 L, [place] % (Auto) 9.4, Eos % (Auto) 4.1, [...] Self Care Charges/Coding Visit Charges Inpatient E&M: 41732 Disch Hosp >30min 08/04/23 1259 <Electronically signed by Jerrell Faith MD> Cosigner Signature (if applicable): CC: Dr. Jerrell Faith MD; CHRISTINE Brown~ Signed [facility] Work Phone: 1(221) 699-184101-06-2024 Progress note Author Jerrell Faith [facility] August 04, 2023 11:09am Note Date/Time August 04, 2023 8: 05am [facility] Medical Records Department [address] [facility] [place] [address] Progress Note - Hospitalist 08/04/23804 MR#: [id number] Acct: [id number] Name: CLARK LYLES Rep #:[id number] : 1935 87 From: Jerrell Faith MD PCP: CHRISTINE Brown Status:ADM I N Location: [place] [address] Reason for Visit Reason for Visit: Diagnoses [...] 76.4 H, Lymph % (Auto) 8.9 L, [place] % (Auto) 9.4, Eos % (Auto) 4.1, [...] 35 Minutes Charges/Coding Visit Charges Inpatient E&M: 12331 Subs Hosp L2 08/04/23 1109 <Electronically signed by Jerrell Faith MD> Cosigner Signature (if applicable): CC: ~ Signed [facility] Work Phone: 1(459) 703-766801-05-2024 Progress note Author Jerrell Faith [facility] August 03, 2023 9:52am Note Date/Time August 03, 2023 8: 06am [facility] Medical Records Department [address] [facility] [place] [address] Progress Note - Hospitalist 08/03/23 08 MR#: [id number] Acct: [id number] Name: CLARK LYLES Rep #:[id number] : 1935 87 From: Jerrell Faith MD PCP: CHRISTINE Brown Status:ADM I N Location: [place] [address] Reason for Visit Reason for Visit: Diagnoses [...] documentation, 50Minutes Charges/Coding Visit Charges Inpatient E&M: 83475 Subs Hosp 08/03/23 0952 <Electronically signed by Jerrell Faith MD> Cosigner Signature (if applicable): CC: ~ Signed [facility] Work Phone: 1(746) 407-681701-04-2024 Progress note Author Jerrell Faith [facility] August 02, 2023 3:17pm Note Date/Time August 02, 2023 10 :55am [facility] Medical Records Department [address] [place] [address] Progress Note - Hospitalist 08/02/23 1055 MR#: [id number] Acct: [id number] Name: CLARK LYLES Rep #:[id number] : 1935 87 From: Jerrell Faith MD PCP: CHRISTINE Bronw Status:ADM I N Location: [place] [address] Reason for Visit Reason for Visit: Patient [...] 82.0 H, Lymph % (Auto) 5.7 L, [place] %(Auto) 10.3 H, Eos % (Auto) 0.9, [...] 88.2 H, Lymph % (Auto) 5.4 L, [place] % (Auto) 5.8, Eos % (Auto) 0.0, [...] documentation, 50Minutes Charges/Coding Visit Charges Inpatient E&M: 70972 [facility] Hosp 08/02/23 1517 <Electronically signed by Jerrell Faith MD> Cosigner Signature (if applicable): CC: ~ Signed [facility] Work Phone: 1(502) 736-836001-03-2024 Discharge summary Author Lewis Sutton [facility] August 01, 2023 4:18pm Note Date/Time August 01, 2023 1: 26pm [facility] Medical Records Department [address] [place] [address] Emergency Department Summary 08/01/23 MR#: [id number] Acct: [id number] Name: CLARK LYLES Rep #:[id number] : 1935 87 From: Lewis Sutton MD PCP: CHRISTINE Brown Status:ADM I N Location: [place] [address] HPI History of Present Illness Chief Complaint: [...] he has dyspnea on exertion as well. [facility] Medical History Acute respiratory failure with hypoxia Anxiety Anxiety and depression Atherosclerosis of coronary artery of wrangell heart without angina pectoris BPH (benign prostatic [...] 82.0 H Lymph % (Auto) 5.7 L [place] % (Auto) 10.3 H Eos % (Auto) [...] 15:00 EST Reading Location ID and State: [address] [place] [address] Tel , Service support , Discharge Plan Dx/Rx/DC Orders Clinical Impression: Hypoxia, Pneumonia, SOB (shortness of breath), Hypokalemia Disposition Disposition: Acute Care Hospital [facility] What to do if you have Problems For any increased pain, shortness of breath, bleeding, nausea or vomiting, chestpain, or any unexpected problems, contact your Primary Care Provider. Call [facility] ([phone]) or report to the closest Emergency Room. Call 911 if necessary. 08/01/23 1618 <Electronically signed by Lewis Sutton MD> Cosigner Signature (if applicable): CC: CHRISTINE Brown ~ Signed [facility] Work Phone: 1(666) 992-812601-03-2024 Discharge summary Author Lewis Sutton [facility] August 01, 2023 4:18pm Note Date/Time August 01, 2023 1: 26pm [facility] Medical Records Department [address] [place] [address] Emergency Department Summary 08/01/23 MR#: [id number] Acct: [id number] Name: CLARK LYLES Rep #:[id number] : 1935 87 From: Lewis Sutton MD PCP: CHRISTINE Brown Status:ADM I N Location: [address] History of Present Illness Chief Complaint: Shortness [...] he has dyspnea on exertion as well. [facility] Medical History Acute respiratory failure with hypoxia Anxiety Anxiety and depression Atherosclerosis of coronary artery of wrangell heart without angina pectoris BPH (benign prostatic [...] 82.0 H Lymph % (Auto) 5.7 L [place] % (Auto) 10.3 H Eos % (Auto) [...] 15:00 EST Reading Location ID and State: [facility] / [place] Tel , Service support , Discharge Plan Dx/Rx/DC Orders Clinical Impression: Hypoxia, Pneumonia, SOB (shortness of breath), Hypokalemia Disposition Disposition: Acute Care Hospital [facility] What to do if you have Problems For any increased pain, shortness of breath, bleeding, nausea or vomiting, chestpain, or any unexpected problems, contact your Primary Care Provider. Call [facility] ([phone]) or report to the closest Emergency Room. Call 911 if necessary. 08/01/23 1618 <Electronically signed by Lewis Sutton MD> Cosigner Signature (if applicable): CC: CHRISTINE Brown ~ Signed [facility] Work Phone: 1(383) 286-700312-12-2023 Miscellaneous Notes* Telephone Encounter - Davina Fajardo - 07/10/2023 9:33 AM EST Patient has been identified by name and date of : Yes Requested Prescriptions Pending Prescriptions Disp Refills tamsulosin (FLOMAX) 0.4 mg 180 capsule 3 Sig: Take 2 capsules by mouth once daily. RX INSTRUCTIONS: Patient aware RX will be sent to [facility] pharmacy. No need to notify patient. Davina Fajardo documented in this encounterNationwide Children'S Hospital12-04-2023 Miscellaneous Notes* Telephone Encounter - Shirley Rivera Ma - 07/02/2023 11:07 AM EST Left detailed message with daughter. Shirley Rodhang Massey * Telephone Encounter - Shirley Rivera Ma - 07/02/2023 9:55 AM EST ----- Message from Radha Durbin PA-C sent at 07/02/2023 7:50 AM EST ----- Please advise WBC mildly elevated. Likely r/t viral infection with recent diarrhea. Chaz Vega PA-C documented in this encounterNationwide Children'S Hospital11-30-2023 History of Present illness Narrative* Radha Durbin PA-C - 06/28/2023 9:00 AM EST 87 year old male with c/o here for 3 month follow up Still having issues with diarrhea, watery to mushy. No pain Moving bowels twice a day, previously once a day. 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 02/08/2022 last cardiology visit [place]: [employer] feels he is doing well and stable. [...] because he felt bad in the mornings. Filion better after he stopped- probably a year [...] lipoma performed by Dr. Robe Mackenzie at [facility]SC OPN/PRQ FEM/POP W/STNT/ANGIOP SM [...] Chronic Blood Loss Coronary Artery Disease Involving Telida Coronary Artery of Telida Heart S/P Primary Angioplasty With Coronary Stent [...] refill. ASSESSMENT/PLAN: 1. 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 S/P primary angioplasty with coronary stent - ICD9: V45.82, ICD10: Z95.5 3. Angina pectoris (HCC) - ICD9: 413.9, ICD10: I20.9 4. Atherosclerosis of aorta ([facility]) - ICD9: 440.0, ICD10: I70.0 5. Essential hypertension, benign - ICD9: 401.1, ICD10: I10 Stable, continue meds. No ischemic. 6. Hyperlipidemia LDL goal <100 - ICD9: 272.4, ICD10: E78.5 - Controlled - Continue current medications - Counseled on healthy diet and regular exercise 7. PAD (peripheral artery disease) ([facility]) - ICD9: 443.9, ICD10: I73.9 Stable, [...] data. Radha Durbin PA-C documented in this encounterNationwide Children'S Hospital11-20-2023 Miscellaneous Notes* Telephone Encounter - Naty Cardona LPN - 06/18/2023 9:36 AM EST Appt scheduled 06/28/23 * Telephone Encounter - Sydney Maldonado - 06/18/2023 8:02 AM EST Patient has been identified by name and date of : Yes Requested Prescriptions Pending Prescriptions Disp Refills traZODone (DESYREL) 50 mg tablet 90 tablet 1 Sig: Take 1 tablet by mouth daily at bedtime. RX INSTRUCTIONS: Patient aware RX will be sent to pharmacy. No need to notify patient. 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 Jair Marvin MD documented in this encounterNationwide Children'S Hospital10-23-2023 Miscellaneous Notes* Telephone Encounter - Shirley Rivera Ma - 05/21/2023 1:52 PM EDT No answer no voicemail Letter sent to patient Shirley Rivera Ma * Telephone Encounter - Clarence Winters LPN [...] Thanks, Chaz Durbin PA-C documented in this encounterNationwide Children'S Hospital10-14-2023 Miscellaneous Notes* Telephone Encounter - Tracy [...] Thanks, Chaz Durbin PA-C documented in this encounterNationwide Children'S Hospital10-13-2023 Miscellaneous Notes* Telephone Encounter - Radha Durbin PA-C - 05/11/2023 4:54 PM EDT See other TE Gary, Chaz Durbin PA-C * Telephone Encounter - Whit Sheridan RN - 05/11/2023 2:30 PM EDT Pt's daughter Pili asking Chaz Durbin to advise on pt's recent CT scan results, when able. Thank you. documented in this encounterNationwide Children'S Hospital10-13-2023 History of Present illness Narrative* Krissy Michel, RT(R) - 05/11/2023 11:20 AM EDT Radiology [...] 2023 TIME: 4:07 PM documented in this encounterNationwide Children'S Hospital07-13-2023 Instructions* Patient Instructions* Radha Durbin PA-C - 02/08/2023 10:02 AM EDT Ice/ moist heat, lineaments, OTC analgesics as needed. Stretching and posture reviewed. See handout on piriformis stretching. documented in this encounterNationwide Children'S Hospital07-13-2023 History of Present illness Narrative* Radha [...] lipoma performed by Dr. Robe Mackenzie at [facility] OPN/PRQ FEM/POP W/STNT/ANGIOP SM [...] Chronic Blood Loss Coronary Artery Disease Involving Telida Coronary Artery of Telida Heart S/P Primary Angioplasty With Coronary Stent [...] or gallop. No lifts, heaves, or rubs. 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 documented in this encounterNationwide Children'S Hospital07-05-2023 History of Present illness Narrative* Rebekah Salazar PA-C - 01/31/2023 1:38 PM EDT This note was created using Stilnestter. Subjective Clark Lyles is a 87 year [...] lipoma performed by Dr. Robe Mackenzie at [facility] OPN/PRQ FEM/POP W/STNT/ANGIOP SM [...] AP/LAT/L5-S1 Rebekah Salazar PA-C documented in this encounterNationwide Children'S Hospital07-05-2023 History of Present illness Narrative* Yeimi [...] 31, 2023 11:04 AM documented in this encounterNationwide Children'S Hospital06-16-2023 Miscellaneous Notes* Telephone Encounter - Юлия [...] you. Юлия Deng LPN documented in this encounterNationwide Children'S Hospital05-04-2023 Miscellaneous Notes* Telephone Encounter - Whit Sheridan RN - 11/30/2022 10:38 AM EDT Images from the original note were not included. Patient's daughter Pili Payne, notified. ZACKARY Vines PA-C 11/30/2022 9:01 AM EDT Please let him know labs all look good. Thanks, Chaz Durbin PA-C documented in this encounterNationwide Children'S Hospital05-01-2023 Instructions* Patient Instructions* Radha Durbin PA-C - 11/27/2022 3:54 PM EDT Trazodone (Patient Education - Adult Medication) You must carefully read the Consumer Information Use and Disclaimer below in order to understand and correctly use this information Pronunciation (TRAZ oh done) Brand Names: [place]O-TraZODone; APO-TraZODone D; [...] Last Reviewed Date 2019-11-20 documented in this encounterNationwide Children'S Hospital05-01-2023 History of Present illness Narrative* Radha [...] Angina pectoris (hcc) Cardiovascular interval hx: Sees [place] cardiology 02/27/2022 exercise myocardial perfusion stress test [...] to suggest ischemia. 02/08/2022 last cardiology visit [place]: [employer] feels he is doing well and stable. [...] current. In past notes: Yes: occurs in restorationist, sudden feeling of lightheadedness,pallor, weakness, lasts about 20 minutes. Seemed better when he went outside. Has happened 2 years ago. Father had low sugar. Doesn't eat prior to restorationist and then goes out to [facility] after. Unexplainable fatigue No Leg swelling: No Nausea: No diaphoresis: No Heartburn: No Claudication: No Smoking: No Following Low cholesterol, high fiber diet? Yes If on statin: muscle aches? No If on statin: GI sx or diarrhea? No Additional history does a lot of mowing. 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 Lab review: [...] lipoma performed by Dr. Robe Mackenzie at [facility] OPN/PRQ FEM/POP W/STNT/ANGIOP SM [...] Chronic Blood Loss Coronary Artery Disease Involving Telida Coronary Artery of Telida Heart S/P Primary Angioplasty With Coronary Stent [...] this visit. COVID-19 VACCINE(4 - Booster for Pfizer series) due on 07/13/2021 ADVANCE DIRECTIVE DISCUSSION [...] TABLET Radha Durbin PA-C documented in this encounterNationwide Children'S Hospital01-09-2023 Miscellaneous Notes* Telephone Encounter - Clarence [...] notify patient. Charity Zhou documented in this encounterNationwide Children'S Hospital12-09-2022 Miscellaneous Notes* Telephone Encounter - Tracy [...] Thank you. Tracy Lambert documented in this encounterNationwide Children'S Hospital09-12-2022 Miscellaneous Notes* Telephone Encounter - Mague Steiner [...] refill: 04/2021 * Telephone Encounter - Tamra Baez Pss - 04/10/2022 9:34 AM EDT Pharmacy verified in [facility] Patient has been identified by name and [...] 75.8 kg (167 lb) Please advise. Tamra Radha Baez Pss documented in this encounterNationwide Children'S Hospital06-13-2022 Miscellaneous Notes* Telephone Encounter - Theresa [...] patient. Theresa Barbour Pss documented in this encounterNationwide Children'S Hospital02-10-2020 Evaluation note* Diagnosis Onset Date Resolution Status Essential (primary) hypertension chronic Hyperlipidemia chronic Peripheral vascular occlusive disease chronic History of coronary artery stent placement September 082019 resolved [facility] Work Phone: 1(211) 153-319702-01-2018 Evaluation note* Diagnosis Onset Date Resolution Status BPH (benign prostatic hyperplasia) acute History of angioplasty of peripheral vessel August, acute Hypokalemia acute Hypoxia acute Pneumonia acute SOB (shortness of breath) ac [place] Essential (primary) hypertension chronic History of coronary artery stent placement September 082019 resolved [facility] Work Phone: evaluation note* Diagnosis Gastroesophageal reflux disease, unspecified whether esophagitis present [facility]* Diagnosis Benign prostatic hyperplasia with nocturia documented in this encounter [facility] noteNo assessment information availableWFirelands Regional [facility] Work Phone: evaluation note* Diagnosis S/P primary angioplasty with coronary stent Postsurgical percutaneous transluminal coronary angioplasty status PAD (peripheral artery disease) (HCC) Peripheral vascular disease, unspecified Hyperlipidemia LDL goal <100 Other and unspecified hyperlipidemia Anxiety state Anxiety state, unspecified Essential hypertension, benign Benign prostatic hyperplasia with nocturia documented in this encounter [facility] note* Diagnosis S/P primary angioplasty with coronary [...] insomnia Insomnia, unspecified documented [facility] this encounter [facility]* Diagnosis Gastroesophageal reflux disease, unspecified whether esophagitis present Anxiety state Anxiety state, unspecified Chronic insomnia Insomnia, unspecified documented in this encounter [facility] note* Diagnosis Back pain of lumbar region with sciatica- Primary [facility] encounter [facility]* Diagnosis Piriformis syndrome, left- Primary Somatic dysfunction of left sacroiliac joint [facility]* Diagnosis Abrasion of anterior right lower leg, initial encounter- [facility] Diagnosis Atherosclerosis of aorta (HCC) Atherosclerosis of aorta [facility] Diagnosis Anxiety state Anxiety state, unspecified Chronic insomnia Insomnia, unspecified documented [facility]* Diagnosis 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- Primary S/P primary [...] Diarrhea, unspecified type [facility]* Diagnosis Benign prostatic hyperplasia with nocturia documented in this encounter [facility] note* Diagnosis Onset Date Resolution Status Hypokalemia acute Hypoxia acute Pneumonia acute SOB (shortness of breath) [facility] Work Phone: Evaluation note* Diagnosis 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 S/P primary angioplasty [...] Pneumonia, organism unspecified documented [facility] this encounter [facility]* Diagnosis Anxiety state Anxiety state, unspecified Chronic insomnia Insomnia, unspecified documented [facility]* Diagnosis 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- Primary S/P primary [...] disorder, mild, abuse [facility]* Diagnosis Benign prostatic hyperplasia with nocturia S/P primary angioplasty with coronary stent Postsurgical percutaneous transluminal coronary angioplasty status [facility]* Diagnosis Left sided abdominal pain- Primary Abdominal pain, unspecified site Essential hypertension, benign documented in this encounter [facility]* Diagnosis S/P primary angioplasty with coronary stent Postsurgical percutaneous transluminal coronary angioplasty status PAD (peripheral artery disease) (HCC) Peripheral vascular disease, unspecified [facility]* Diagnosis S/P primary angioplasty with coronary stent Postsurgical percutaneous transluminal coronary angioplasty status PAD (peripheral artery disease) (HCC) Peripheral vascular disease, unspecified Hyperlipidemia LDL goal <100 Other and unspecified hyperlipidemia Anxiety state Anxiety state, unspecified Benign prostatic hyperplasia with nocturia Essential hypertension, benign Left sided abdominal pain Abdominal pain, unspecified site documented [facility] this encounter [facility]* Diagnosis Back pain of lumbar region with sciatica documented [facility]* Diagnosis Essential hypertension, benign documented [facility]* Diagnosis Chronic insomnia- Primary Insomnia, unspecified Benign prostatic hyperplasia with nocturia Screening for depression Hyperlipidemia LDL goal <100 Other and unspecified hyperlipidemia Essential hypertension, benign Parkinson's disease without dyskinesia, unspecified whether manifestations fluctuate (HCC) 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 Acute respiratory failure with hypoxia (HCC) Acute respiratory failure documented [facility]* Diagnosis 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 Chronic obstructive pulmonary disease with acute lower respiratory infection (HCC) Obstructive chronic bronchitis with exacerbation documented [facility] Reason for referral (narrative)* Diagnostic Procedure Only (Urgent) - Closed Specialty Diagnoses / Procedures Referred By Contac t Referred To Contact XR IMAGING Diagnoses Back pain of lumbar region with sciatica Procedures XR LUMBAR GENERAL 3V AP/LAT/L5-S1 RADEX SPINE LUMBOSACRAL 2/3 VIEWS Rebekah Salazar PA-C [address] [place] [address] Xr Imaging Referral ID Status Reason Start Date Expiration Date V isits Requested Visits Authorized [id number] Closed Auto-Generate d Referral 01/31/2023 03/01/2024 1 1 [facility] for referral (narrative)* Diagnostic Procedure Only (Urgent) - Closed Specialty Diagnoses / Procedures Referred By Contac t Referred To Contact XR IMAGING Diagnoses Back pain of lumbar region with sciatica Procedures XR LUMBAR GENERAL 3V AP/LAT/L5-S1 RADEX SPINE LUMBOSACRAL 2/3 VIEWS Rebekah Salazar PA-C [address] [place] [address] [place] [id number] Referral ID Status Reason Start Date Expiration Date V isits Requested Visits Authorized [id number] Closed Auto-Generate d Referral 01/31/2023 03/01/2024 1 1 [facility] for referral (narrative)No reason for referral information [facility] Phone: Reason for visit Narrative* Diagnostic Procedure Only (Urgent) - Closed Specialty Diagnoses / Procedures Referred By Contac t Referred To Contact XR IMAGING Diagnoses Back pain of lumbar region with sciatica Procedures XR LUMBAR GENERAL 3V AP/LAT/L5-S1 RADEX SPINE LUMBOSACRAL 2/3 VIEWS Rebekah Salazar PA-C [address] [place] [address] [place] [address] Referral ID Status Reason Start Date Expiration Date V isits Requested Visits Authorized [id number] Closed Auto-Generate d Referral 01/31/2023 03/01/2024 1 1 [facility] Chief Complaint and Reason for Visit [...] 9:10am HYPOXIA September 15, 2024 9:52am Hospital October 16, 2024 12: 57pm Reason for Visit Admit Date Hypoxia September 07, 2024 1 2:42pm Pulmonary hypertension October 16, 2024 12:57pm COPD (chronic obstructive pulmonary dise ase) October 16, 2024 12:57pm Chief Complaint Admit Date [facility] October 16, 2024 12: 57pm stroke February 08, 2025 6:45 pm CVA February 08, 2025 7:47 pm Reason for Visit Admit Date COPD (chronic obstructive pulmonary dise ase) October 16, 2024 12:57pm Pulmonary hypertension October 16, 2024 12:57pm CVA (cerebral vascular accident) February 082024 7:47pm Family History Relationship Condition Age at Onset Recorded Date/T palomo father Cerebrovascular accident (CVA) Unknown mother Cerebrovascular accident (CVA) Unknown Hypertension Unknown Advance Directives Advance Directive Response Recorded Date/ Time Advance Directives Yes August 9:34am Living Will No September 18 11:19am Power of Machine Steak Tenderizer No September 18, 2021 11:19am Advance Directive Response Recorded Date/ Time Advance Directives Yes August 8:34am Living Will No June 21 9:59pm Power of Machine Steak Tenderizer No June 21, 2022 9:59pm Advance Directive Response Recorded Date/ Time Advance Directives Yes August 8:34am Living Will Yes August 01 1:05pm Power of Machine Steak Tenderizer Yes August 01 1:05pm Name of Medical Power of Machine Steak Tenderizer nick payne, daughter and quincy lyles, son August 01, 2023 1:05pm Advance Directive Response Recorded Date/ Time Name of Medical Power of Machine Steak Tenderizer nick payne, daughter and quincy lyles, son August 01, 2023 5:46pm Advance Directives Yes August 8:34am Living Will Yes August 01 5:46pm Power of Machine Steak Tenderizer Yes August 01 5:46pm Advance Directive Response Recorded Date/ Time Living Will Yes September 07 3:15pm Do you have a Healthcare Power of Machine Steak Tenderizer? Yes September 07, 2024 3:15pm Name of Medical Power of Machine Steak Tenderizer quincy September 07, 2024 3:15pm Advance Directives Yes August 9:34am Advance Directive Response Recorded Date/ Time Do you have a Healthcare Power of Machine Steak Tenderizer? Yes February 08, 2025 8:08pm Advance Directives Yes August 9:34am Reason for Referral Specialty Diagnoses / Procedures Referred By Armando jorgensen Referred To Contact CT IMAGING Diagnoses Atherosclerosis of aorta (HCC) Procedures CTA ABD/PEL W IVCON CT ANGIO ABD&PLVIS CNTRST MTRL W/WO CNTRST Radha Bob PA-C [address] [place] [address] [place] [address] Referral ID Status Reason Start Date Expiration Date V isits Requested Visits Authorized [id number] Closed Auto-Generate d Referral 04/30/2023 07/29/2023 1 1 Specialty Diagnoses / Procedures Referred By Armando jorgensen Referred To Contact Neurology Diagnoses Parkinson's disease without dyskinesia, with fluctuating manifestations (HCC) Procedures CONSULT TO NEUROLOGY OFFICE/OUTPATIENT [facility] 60 MINUTES Radha Durbin PA-C [address] [place] [address] Referral ID Status Reason Start Date Expiration Date Visits Requested Visits Authorized [id number] Authorized PCP Requested Referral 12/25/2023 12/24/2024 1 1 Summary Purpose Additional Source Comments Source Comments (unrecognize d section and content) In the event this informatio n is protected by the Federal Confidentiality of Alcohol and Drug Abuse Patient Records regulations: The Federal rules restrict any use of the information to criminally investigate or prosecute any alcohol or drug abuse patient.[facility] the event this information is protected by the Federal Confidentiality of Alcohol and Drug Abuse Patient Records regulations: The Federal rules restrict any use of the information to criminally investigate or prosecute any alcohol or drug abuse patient.[facility] the event this information is protected by the Federal Confidentiality of Alcohol and Drug Abuse Patient Records regulations: The Federal rules restrict any use of the information to criminally investigate or prosecute any alcohol or drug abuse patient.[facility] the event this information is protected by the Federal Confidentiality of Alcohol and Drug Abuse Patient Records regulations: The Federal rules restrict any use of the information to criminally investigate or prosecute any alcohol or drug abuse patient.[facility] the event this information is protected by the Federal Confidentiality of Alcohol and Drug Abuse Patient Records regulations: The Federal rules restrict any use of the information to criminally investigate or prosecute any alcohol or drug abuse patient.[facility] the event this information is protected by the Federal Confidentiality of Alcohol and Drug Abuse Patient Records regulations: The Federal rules restrict any use of the information to criminally investigate or prosecute any alcohol or drug abuse patient.[facility] the event this information is protected by the Federal Confidentiality of Alcohol and Drug Abuse Patient Records regulations: The Federal rules restrict any use of the information to criminally investigate or prosecute any alcohol or drug abuse patient.[facility] the event this information is protected by the Federal Confidentiality of Alcohol and Drug Abuse Patient Records regulations: The Federal rules restrict any use of the information to criminally investigate or prosecute any alcohol or drug abuse patient.[facility] the event this information is protected by the Federal Confidentiality of Alcohol and Drug Abuse Patient Records regulations: The Federal rules restrict any use of the information to criminally investigate or prosecute any alcohol or drug abuse patient.[facility] the event this information is protected by the Federal Confidentiality of Alcohol and Drug Abuse Patient Records regulations: The Federal rules restrict any use of the information to criminally investigate or prosecute any alcohol or drug abuse patient.[facility] the event this information is protected by the Federal Confidentiality of Alcohol and Drug Abuse Patient Records regulations: The Federal rules restrict any use of the information to criminally investigate or prosecute any alcohol or drug abuse patient.[facility] the event this information is protected by the Federal Confidentiality of Alcohol and Drug Abuse Patient Records regulations: The Federal rules restrict any use of the information to criminally investigate or prosecute any alcohol or drug abuse patient.[facility] the event this information is protected by the Federal Confidentiality of Alcohol and Drug Abuse Patient Records regulations: The Federal rules restrict any use of the information to criminally investigate or prosecute any alcohol or drug abuse patient.[facility] the event this information is protected by the Federal Confidentiality of Alcohol and Drug Abuse Patient Records regulations: The Federal rules restrict any use of the information to criminally investigate or prosecute any alcohol or drug abuse patient.[facility] the event this information is protected by the Federal Confidentiality of Alcohol and Drug Abuse Patient Records regulations: The Federal rules restrict any use of the information to criminally investigate or prosecute any alcohol or drug abuse patient.[facility] the event this information is protected by the Federal Confidentiality of Alcohol and Drug Abuse Patient Records regulations: The Federal rules restrict any use of the information to criminally investigate or prosecute any alcohol or drug abuse patient.[facility] Hospital[facility] the event this information is protected by the Federal Confidentiality of Alcohol and Drug Abuse Patient Records regulations: The Federal rules restrict any use of the information to criminally investigate or prosecute any alcohol or drug abuse patient.[facility] HospitalIn the event this information is protected by the Federal Confidentiality of Alcohol and Drug Abuse Patient Records regulations: The Federal rules restrict any use of the information to criminally investigate or prosecute any alcohol or drug abuse patient.[facility] HospitalIn the event this information is protected by the Federal Confidentiality of Alcohol and Drug Abuse Patient Records regulations: The Federal rules restrict any use of the information to criminally investigate or prosecute any alcohol or drug abuse patient.[facility] HospitalIn the event this information is protected by the Federal Confidentiality of Alcohol and Drug Abuse Patient Records regulations: The Federal rules restrict any use of the information to criminally investigate or prosecute any alcohol or drug abuse patient.[facility] HospitalIn the event this information is protected by the Federal Confidentiality of Alcohol and Drug Abuse Patient Records regulations: The Federal rules restrict any use of the information to criminally investigate or prosecute any alcohol or drug abuse patient.[facility] HospitalIn the event this information is protected by the Federal Confidentiality of Alcohol and Drug Abuse Patient Records regulations: The Federal rules restrict any use of the information to criminally investigate or prosecute any alcohol or drug abuse patient.[facility] HospitalIn the event this information is protected by the Federal Confidentiality of Alcohol and Drug Abuse Patient Records regulations: The Federal rules restrict any use of the information to criminally investigate or prosecute any alcohol or drug abuse patient.[facility] HospitalIn the event this information is protected by the Federal Confidentiality of Alcohol and Drug Abuse Patient Records regulations: The Federal rules restrict any use of the information to criminally investigate or prosecute any alcohol or drug abuse patient.[facility] HospitalIn the event this information is protected by the Federal Confidentiality of Alcohol and Drug Abuse Patient Records regulations: The Federal rules restrict any use of the information to criminally investigate or prosecute any alcohol or drug abuse patient.[facility]In the event this information is protected by the Federal Confidentiality of Alcohol and Drug Abuse Patient Records regulations: The Federal rules restrict any use of the information to criminally investigate or prosecute any alcohol or drug abuse patient.[facility] HospitalIn the event this information is protected by the Federal Confidentiality of Alcohol and Drug Abuse Patient Records regulations: The Federal rules restrict any use of the information to criminally investigate or prosecute any alcohol or drug abuse patient.[facility] HospitalIn the event this information is protected by the Federal Confidentiality of Alcohol and Drug Abuse Patient Records regulations: The Federal rules restrict any use of the information to criminally investigate or prosecute any alcohol or drug abuse patient.[facility] the event this information is protected by the Federal Confidentiality of Alcohol and Drug Abuse Patient Records regulations: The Federal rules restrict any use of the information to criminally investigate or prosecute any alcohol or drug abuse patient.[facility] HospitalIn the event this information is protected by the Federal Confidentiality of Alcohol and Drug Abuse Patient Records regulations: The Federal rules restrict any use of the information to criminally investigate or prosecute any alcohol or drug abuse patient.[facility]In the event this information is protected by the Federal Confidentiality of Alcohol and Drug Abuse Patient Records regulations: The Federal rules restrict any use of the information to criminally investigate or prosecute any alcohol or drug abuse patient.[facility] HospitalIn the event this information is protected by the Federal Confidentiality of Alcohol and Drug Abuse Patient Records regulations: The Federal rules restrict any use of the information to criminally investigate or prosecute any alcohol or drug abuse patient.[facility] HospitalIn the event this information is protected by the Federal Confidentiality of Alcohol and Drug Abuse Patient Records regulations: The Federal rules restrict any use of the information to criminally investigate or prosecute any alcohol or drug abuse patient.[facility] HospitalIn the event this information is protected by the Federal Confidentiality of Alcohol and Drug Abuse Patient Records regulations: The Federal rules restrict any use of the information to criminally investigate or prosecute any alcohol or drug abuse patient.[facility] HospitalIn the event this information is protected by the Federal Confidentiality of Alcohol and Drug Abuse Patient Records regulations: The Federal rules restrict any use of the information to criminally investigate or prosecute any alcohol or drug abuse patient.[facility]In the event this information is protected by the Federal Confidentiality of Alcohol and Drug Abuse Patient Records regulations: The Federal rules restrict any use of the information to criminally investigate or prosecute any alcohol or drug abuse patient.[facility] HospitalIn the event this information is protected by the Federal Confidentiality of Alcohol and Drug Abuse Patient Records regulations: The Federal rules restrict any use of the information to criminally investigate or prosecute any alcohol or drug abuse patient.[facility] Reason for Visit (unrecogniz ed section [...] to touch x 1 week hit on cotton ball machine tender Reason Comments Radiology CT Specialty Diagnoses / Procedures Referred By Contac t Referred To Contact CT IMAGING Diagnoses Atherosclerosis of aorta (HCC) Procedures CTA ABD/PEL W IVCON CT ANGIO ABD&PLVIS CNTRST MTRL W/WO CNTRST Radha Bob PA-C [address] [place] [address] [address] Imaging [place] [address] Referral ID Status Reason Start Date Expiration Date V isits Requested Visits Authorized [id number] Closed Auto-Generate d Referral 04/30/2023 07/29/2023 1 [...] Health PT Plan of Care Reason Comments Nursing Home Plan of Care Reason Comments Oxygen FYI-No Action Needed Reason Comments Orders patient POC Reason Comments Patient Update Reason Comments 25261 Initial Consult Care Teams (unrecognized sec tion and content) Timber Rider Relationship Specialty Start Date End Date Radha Durbin PA-C [address] [place] [address] PCP - General Family Practice 09/20/21 Timber Rider Relationship Specialty Start Date End Date Radha Durbin PA-C [address] [place], [place] [address] PCP - General Family Medicine 09/20/21 Timber Rider Relationship Specialty Start Date End Date Radha Durbin PA-C [address] [place], [place] [address] PCP - General Family Medicine 09/20/21 Timber Rider Relationship Specialty Start Date End Date Radha Durbin PA-C [address] [facility] [place] [address] PCP - General Family Medicine 09/20/21 Timber Rider Relationship Specialty Start Date End Date Radha Durbin PA-C [address] [facility] [place] [address] PCP - General Family Medicine 09/20/21 Timber Rider Relationship Specialty Start Date End Date Radha Durbin PA-C [address] [facility] [place] [address] PCP - General Family Medicine 09/20/21 Timber Rider Relationship Specialty Start Date End Date Radha Durbin PA-C [address] [facility] [place] [address] PCP - General Family Medicine 09/20/21 Timber Rider Relationship Specialty Start Date End Date Radha Durbin PA-C [address] [facility] [place] [address] PCP - General Family Medicine 09/20/21 Timber Rider Relationship Specialty Start Date End Date Radha Durbin PA-C [address] [facility] [place] [address] PCP - General Family Medicine 09/20/21 Timber Rider Relationship Specialty Start Date End Date Radha Durbin PA-C [address] [facility] [place] [address] PCP - General Family Medicine 09/20/21 Timber Rider Relationship Specialty Start Date End Date Radha Durbin PA-C [address] [facility] [place] [address] PCP - General Family Medicine 09/20/21 Timber Rider Relationship Specialty Start Date End Date Radha Durbin PA-C [address] [place], [place] [address] PCP - General Family Medicine 09/20/21 Timber Rider Relationship Specialty Start Date End Date Radha Durbin PA-C [address] [place], [place] [address] PCP - General Family Medicine 09/20/21 Timber Rider Relationship Specialty Start Date End Date Radha Durbin PA-C [address] [place], [place] [address] PCP - General Family Medicine 09/20/21 Timber Rider Relationship Specialty Start Date End Date Radha Durbin PA-C [address] [place] [address] PCP - General Family Medicine 09/20/21 Timber Rider Relationship Specialty Start Date End Date Radha Durbin PA-C [address] [place] [address] PCP - General Family Medicine 09/20/21 Team Status: Active Member Role Status Dr. Brian Mackenzie III, MD Family Provider Active CHRISTINE Bahena Primary Care Provider Active Team Status: Active Member Role Status CHRISTINE Bahena Primary Care Provider Active Lewis Sutton MD Emergency Provider Active Dr. Jasmine Tan MD Admit Provider, Attending Provid er Active Team Status: Active Member Role Status CHRISTINE Bahena Primary Care Provider Active Dr. Becca Nam MD Attending Provider Active Team Status: Active Member Role Status CHRISTINE Bahena Primary Care Provider Active Lewis [...] Dr. Jerrell Faith MD Attending Provider Active Timber Rider Relationship Specialty Start Date End Date Radha Durbin PA-C [address] [facility] [place] [address] PCP - General Family Medicine 09/20/21 Timber Rider Relationship Specialty Start Date End Date Radha Durbin PA-C [address] [facility] [place] [address] PCP - General Family Medicine 09/20/21 Timber Rider Relationship Specialty Start Date End Date Radha Durbin PA-C [address] [facility] [place] [place] [address] PCP - General Family Medicine 09/20/21 Timber Rider Relationship Specialty Start Date End Date Radha Durbin PA-C [address] [facility] [place] [address] PCP - General Family Medicine 09/20/21 Timber Rider Relationship Specialty Start Date End Date Radha Durbin PA-C [address] [facility] [place] [address] PCP - General Family Medicine 09/20/21 Timber Rider Relationship Specialty Start Date End Date Radha Durbin PA-C [address] [facility] [place] [address] PCP - General Family Medicine 09/20/21 Timber Rider Relationship Specialty Start Date End Date Radha Durbin PA-C [address] [facility] [place] [address] PCP - General Family Medicine 09/20/21 Timber Rider Relationship Specialty Start Date End Date Radha Durbin PA-C [address] [place] [address] PCP - General Family Medicine 09/20/21 Timber Rider Relationship Specialty Start Date End Date Brigitte Segal, PACKING MACHINE PILOT CAN ROUTER.GOLF BALL COVER TREATER [address] [place] [address] PCP - General Family Medicine 09/08/24 Yuliana Patton, PACKING MACHINE PILOT CAN ROUTER.GOLF BALL COVER TREATER [address] [place] [address] [facility] 07/04/24 Brigitte Segal, PACKING MACHINE PILOT CAN ROUTER.GOLF BALL COVER TREATER [address] [place] [address] [facility] 07/04/24 Timber Rider Relationship Specialty Start Date End Date Brigitte Segal, PACKING MACHINE PILOT CAN ROUTER.GOLF BALL COVER TREATER [address] [place] [address] PCP - General Family Medicine 09/08/24 Yuliana Patton, PACKING MACHINE PILOT CAN ROUTER.GOLF BALL COVER TREATER [address] [place] [address] [facility] 07/04/24 Brigitte Segal, PACKING MACHINE PILOT CAN ROUTER.GOLF BALL COVER TREATER [address] [place] [address] [facility] 07/04/24 Timber Rider Relationship Specialty Start Date End Date Brigitte Segal, PACKING MACHINE PILOT CAN ROUTER.GOLF BALL COVER TREATER [address] [place] [address] PCP - General Family Medicine 09/08/24 Yuliana Patton, PACKING MACHINE PILOT CAN ROUTER.GOLF BALL COVER TREATER [address] [facility] [place] [address] [facility] 07/04/24 Brigitte Segal, PACKING MACHINE PILOT CAN ROUTER.GOLF BALL COVER TREATER [address] [facility] [place] [address] [facility] 07/04/24 Timber Rider Relationship Specialty Start Date End Date Brigitte Segal, PACKING MACHINE PILOT CAN ROUTER.GOLF BALL COVER TREATER [address] [facility] [place] [address] PCP - General Family Medicine 09/08/24 Yuliana Patton, PACKING MACHINE PILOT CAN ROUTER.GOLF BALL COVER TREATER [address] [facility] [place] [address] [facility] 07/04/24 Brigitte Segal, PACKING MACHINE PILOT CAN ROUTER.GOLF BALL COVER TREATER [address] [facility] [place] [address] [facility]ly [facility] 07/04/24 Timber Rider Relationship Specialty Start Date End Date Brigitte Segal, PACKING MACHINE PILOT CAN ROUTER.GOLF BALL COVER TREATER [address] [facility] [place] [address] PCP - General Family Medicine 09/08/24 Yuliana Patton, PACKING MACHINE PILOT CAN ROUTER.GOLF BALL COVER TREATER [address] [facility] [place] [address] [facility] Medicine 07/04/24 Brigitte Segal, PACKING MACHINE PILOT CAN ROUTER.GOLF BALL COVER TREATER [address] [facility] [place] [address] Formerly [facility] 07/04/24 Timber Rider Relationship Specialty Start Date End Date Suppan, Brigitte A, PACKING MACHINE PILOT CAN ROUTER.GOLF BALL COVER TREATER [address] [facility] [place] [address] PCP - General Family Medicine 09/08/24 Yuliana Patton, PACKING MACHINE PILOT CAN ROUTER.GOLF BALL COVER TREATER [address] [facility] [place] [address] [facility] 07/04/24 Brigitte Segal, PACKING MACHINE PILOT CAN ROUTER.GOLF BALL COVER TREATER [address] [facility] [place] [address] [facility] 07/04/24 Timber Rider Relationship Specialty Start Date End Date Brigitte Segal, PACKING MACHINE PILOT CAN ROUTER.GOLF BALL COVER TREATER [address] [facility] [place] [address] PCP - General Family Medicine 09/08/24 Timber Rider Relationship Specialty Start Date End Date Brigitte Segal, PACKING MACHINE PILOT CAN ROUTER.GOLF BALL COVER TREATER [address] [facility] [place] [address] PCP - General Family Medicine 09/08/24 Yuliana Patton, PACKING MACHINE PILOT CAN ROUTER.GOLF BALL COVER TREATER [address] [facility] [place] [address] [facility] 07/04/24 10/20/24 Brigitte Segal, PACKING MACHINE PILOT CAN ROUTER.GOLF BALL COVER TREATER [address] [facility] [place] [address] [facility] 07/04/24 10/20/24 Timber Rider Relationship Specialty Start Date End Date Brigitte Segal, PACKING MACHINE PILOT CAN ROUTER.GOLF BALL COVER TREATER [address] [facility] [place] [address] PCP - General Family Medicine 09/08/24 Team Status: Active Member Role Status Dates Brigitte Suppan , VOICE INTERCEPT TECHNICIAN Primary Care Provider Active Team Status: Inactive Member Role Status Dates Dr. Neo Tejeda DO Emergency Provider Active Start: September 07, 2024 End: September 15, 2024 Brigitte Suppan , VOICE INTERCEPT TECHNICIAN Primary Care Provider Active Start: September 07, [...] Emergency Provider Active Start: September 07, 2024 Brigittemillicent Segal , VOICE INTERCEPT TECHNICIAN Primary Care Provider Active Start: September 07, 2024 Dr. Jerrell Faith MD Admit Provider Active Star t: September 07, 2024 Dr. Jerrell Faith MD Attending Provider Active Start: September 07, 2024 Dr. Jerrell Faith MD Other Provider Active Star t: September 07, 2024 Team Status: Active Member Role Status Dates Dr. Neo Tejeda DO Emergency Provider Active Start: September 08, 2024 Brigitte Segal , VOICE INTERCEPT TECHNICIAN Primary Care Provider Active Start: September 08, 2024 Dr. Jerrell Faith MD Admit Provider Active Star t: September 08, 2024 Dr. Jerrell Faith MD Other Provider Active Star t: September 08, 2024 Dr. Lester Perdomo DO Attending Provider Active Start: September 08, 2024 Dr. Lester Perdomo DO Other Provider Active Star t: September 08, 2024 Team Status: Active Member Role Status Dates Brigitte Segal , VOICE INTERCEPT TECHNICIAN Primary Care Provider Active Start: September 08, 2024 Dr. Dejuan Brooks MD Attending Provider Active S tart: September 08, 2024 Team Status: Active Member Role Status Dates Dr. Neo Tejeda DO Emergency Provider Active Start: September 09, 2024 Brigitte Segal , VOICE INTERCEPT TECHNICIAN Primary Care Provider Active Start: September 09, [...] Provider Active Start: September 10, 2024 Brigitte Segal , VOICE INTERCEPT TECHNICIAN Primary Care Provider Active Start: September 10, [...] Provider Active Start: September 11, 2024 Brigitte Segal , VOICE INTERCEPT TECHNICIAN Primary Care Provider Active Start: September 11, [...] Emergency Provider Active Start: September 12, 2024 Brigitte Segal , VOICE INTERCEPT TECHNICIAN Primary Care Provider Active Start: September 12, [...] Start: September 13, 2024 Brigitte Segal , VOICE INTERCEPT TECHNICIAN Primary Care Provider Active Start: September 13, [...] Start: September 14, 2024 Brigitte Segal , VOICE INTERCEPT TECHNICIAN Primary Care Provider Active Start: September 14, [...] Start: September 15, 2024 Brigitte Segal , VOICE INTERCEPT TECHNICIAN Primary Care Provider Active Start: September 15, [...] Team Status: Inactive Member Role Status Dates Brigitte Segal , VOICE INTERCEPT TECHNICIAN Primary Care Provider Active Start: October 16, 2024 End: October 16, 2024 Brigitte Segal , VOICE INTERCEPT TECHNICIAN Referring Provider Active Start: October 16, 2024 End: October 16, 2024 Kalyn Taylor FREELANCE INTERPRETER/TRANSLATOR, FREELANCE INTERPRETER/TRANSLATOR-C Attending Provider Active Start: October 16, 2024 End: October 16, 2024 Team Status: Active Member Role/Relationship Status Dates Brigitte Segal , VOICE INTERCEPT TECHNICIAN Primary Care Provider Active Team Status: Inactive Member Role/Relationship Status Dates Brigitte Huynhchristine , VOICE INTERCEPT TECHNICIAN Primary Care Provider Active Start: October 16, 2024 End: October 16, 2024 Brigitte Huynhchristine , VOICE INTERCEPT TECHNICIAN Referring Provider Active Start: October 16, 2024 End: October 16, 2024 Kalyn Taylor FREELANCE INTERPRETER/TRANSLATOR, FREELANCE INTERPRETER/TRANSLATOR-C Attending Provider Active Start: October 16, 2024 End: October 16, 2024 Team Status: Active Member Role/Relationship Status Dates Brigittecolette Segal , VOICE INTERCEPT TECHNICIAN Primary Care Provider Active Start: February 08, 2025 Ed Physician Provider Emergency Provider Active Start: February 08, 2025 Dr. Janice Sanford MD Attending Provider Active Start: February 08, 2025 Team Status: Active Member Role/Relationship Status Dates Brigittecolette Segal , VOICE INTERCEPT TECHNICIAN Primary Care Provider Active Start: February 08, 2025 Dr. Shahab Teixeira DO Emergency Provider Active S tart: February 08, 2025 Dr. Janice Sanford MD Admit Provider Active St art: February 08, 2025 Dr. Janice Sanford MD Attending Provider Active Start: February 08, 2025 Goals (unrecognized section and content) Goals may be documented in a n alternate sectionGoals may be documented in an alternate sectionGoals may be documented in an alternate sectionGoals may be documented in an alternate section (unrecognized sect ion and content) No Status Records FoundNo Status Records FoundNo Status Records Found INFORMATION SOURCE (unrecogn ized section and content) DATE CREATED AUTHOR 10/18/2024 [facility] DATE CREATED AUTHOR AUTHOR'S ORGANIZ ATION 11/02/2024 [facility] DATE CREATED AUTHOR [facility]S [facility]IZ [facility] PERTAINING TO PATIENTS WHO ARE [...] BE BASED ON THE PRIMARY CLINICAL RECORDS. [facility] [employer] provides no warranty or guarantee of the accuracy or completeness of information in this document.
--- OUTSIDE RECORDS SUMMARY | 2025-02-08 21:16 | XMS RPT_ITS | CCD ---
Author Organization [facility] Care Team Providers Care Bone Tender Name Role Phone Quan Mackeznie MD Unavailable Mela Patel Unavailable Unavailable Anjelica Walden Unavailable Unavailable Radha Durbin PA-C Primary Care Provider [phone] Dr. Brian Mackenzie III Referring Provider Dr. Dejuan Brooks Attending Provider CHRISTINE Blount Primary Care Provider Dr. Dejuan Brooks Referring Provider Dr. Dejuan Brooks Other Provider Radha Durbin PA-C Primary Care Provider [phone] CHRISTINE Blount Primary Care Provider Dr. Dejuan Brooks Attending Provider Dr. Dejuan Brooks Referring Provider Dr. Dejuan Brooks Other Provider Radha Durbin PA-C Primary Care Provider CHRISTINE Blount Primary Care Provider Dr. Becca Nam Attending Provider MD Lewis Sutton Emergency Provider Dr. Jasmine Tan Admit Provider Dr. Jasmine Tan Other Provider Dr. Jererll Faith Attending Provider Unavailable Dr. Jerrell Faith Other Provider Unavailable Radha Durbin PA-C Primary Care Provider Haagen SIGNAL OPERATOR LINGUIST.ADMIN ASSISTANT, Yuliana Unavailable Suppan SIGNAL OPERATOR LINGUIST.ADMIN ASSISTANT, Brigitte A Unavailable Suppan SIGNAL OPERATOR LINGUIST.ADMIN ASSISTANT, Brigitte A Primary Care Provi emilia Radha Blount Primary Care Unavailable Mary Hill Attending Unavail able Mary Hill Referring Unavail able Radha Blount Primary Care Unavailable Tamra Ivey Attending Unavailable KitJerrlel nuñez Consulting Unavailable Suppan, Brigitte Primary Care [...] Care Unavailable Suppan, Brigitte Referring Unavailable Claudia BUSINESS PERFORMANCE ANALYST, Kalyn Attending Unavailable Radha Blount Referring Unavailable Radha Blount Primary Care Unavailable Mary Hill Attending Unavail able Suppan, Brigitte Primary Care Unavailable Taylor BUSINESS PERFORMANCE ANALYST, Kalyn Referring Unavailable Taylor BUSINESS PERFORMANCE ANALYST, Kalyn Attending Unavailable Haagen SIGNAL OPERATOR LINGUIST.ADMIN ASSISTANT, Yuliana Unavailable Suppan SIGNAL OPERATOR LINGUIST.ADMIN ASSISTANT, Brigitte A Unavailable SUPPAN, BRIGITTE A Attending Unavailable DURBINCASPER BENJAMINORY [...] Dr. Neo Tejeda DO Emergency Provider Suppan SUPPLY CHAIN ANALYST, Brigitte Primary Care Provider Kittoe MD, Dr. Allan Admit Provider Unavailable Marcell MANUEL, Dr. Allan Other Provider Unavailable Martínez MANUEL, Dr. Lopez Attending Provider Leanne PEDERSON, Dr. Batista Other Provider Marcell MANUEL, Dr. Allan Attending Provider Unavaila ble Leanne PEDERSON, Dr. Batista Attending Provider Todd MANUEL, Dr. Zaidi Attending Provider [phone] Martínez MANUEL, Dr. Lopez Other Provider Suppan SUPPLY CHAIN ANALYST, Brigitte Referring Provider Claudia BUSINESS PERFORMANCE ANALYST-CKalyn Attending Provider Suppan SUPPLY CHAIN ANALYST, Brigitte Primary Care Provider Provider, Ed Physician Emergency Provider Dimitris Sanford MD, Dr. Janice Hillman Attending Provider Dr. Shahab Teixeira DO Emergency Provider [phone] Juvenal MANUEL, Dr. Janice Hillman Admit Provider Allergies Allergy Classification Reported Allergen(s) Allergy Type Date of Onset Reaction(s) Facility (20 sources) lisinopril; Translations: [LISINOPRIL] Drug Allergy 0 Cough [facility] Work Phone: Comment on above: cough (6 sources) sulfADIAZINE Drug Allergy 7 [facility] Work Phone: (20 sources) Sulfonamides (Antibiotic); Translations: [SULFA (SULFONAMIDE ANTIBIOTICS)] Drug Allergy 6 [facility] (5 sources) Sulfonamides (Antibiotic) Allergy to substance 2 Rash [facility] (1 source) Lisinopril Drug Allergy 5 [facility] (1 source) Sulfonamides (Antibiotic) Drug allergy (disorder) 5 [facility] Medications Current Medications Medication Drug Class(es) [...] LDL goal , PAD (peripheral artery disease) ([facility]) Take 1 tablet by mouth once daily. [...] LDL goal , PAD (peripheral artery disease) ([facility]) Take 1 tablet by mouth once daily. [...] tablets by mouth once daily. lactobacillus acidophilus [id number] unt oral capsule (20 sources) Start: 08-04-2023 [...] NMA PO DAILY May 16, 2017 12:00am [facility] Start: 05-16-2017 Multivitamin 1 EACH tablet Active [...] DAILY September 07, 2024 1:00am gerd Saw Victor (7 sources) Start: take 1 capsule by mouth once daily Saw Victor 450 mg capsule Active 450 mg PO DAILY February 08, 2025 12:00am prostate Start: 05-08-2017 take 1 tablet by lissa twice daily [facility] SAW PALMETTO CAPS 320 mg. One tablet by mouth twice daily SAW PALMETTO (SERENOA REPENS) CAPS [id number] Anjelica Waldne tamsulosin hydrochloride 0.4 mg oral capsule (20 [...] on above: Take 1 capsule by mo txh once daily. Take 2 capsules by m [...] 25, 2021 12:00am February 19, 2024 11:13am [facility] Start: 08-23-2020 End: 10-19-2020 take 1 tablet [...] for pain and inflammation with food NAPROXEN [id number] Anjelica Walden niacin 500 mg extended release [...] One tablet by mouth twice daily NIACIN [id number] Anjelica Walden Start: 03-17-2014 End: 09-09-2019 take [...] Comment on above: Take 1 capsule by [facility] once daily. Take [address] [facility] once daily. predniSONE 20 mg oral tablet [...] Comment on above: Take 3 tablets by [facility] once daily for 5 days. rOPINIRole 4 mg oral tablet (20 sources) Nonergot Dopamine Agonist Start: End: take 1 tablet by mouth three times daily Ropinirole 4 MG tablet Discontinued 4 mg PO THREE TIMES A DAY August 26, 2020 1:00am April 25, 2021 10:22am Check with primary doctor Comment on above: Take 1 tablet by [facility] three times daily. traZODone hydrochloride 50 [...] (1 source) Drug therapy finding; Translations: [Other senior care (current) drug therapy] 12-24-2023 Episodic Other bone [...] 7 x 30 mm Protege stenting 03/18/14; GRAVE DIGGER 5 x 2 Powerflex and 6 x [...] 05-08-2017 Episodic Other aftercare (1 source) Other long chain beamer (current) drug therapy; Translations: [Current use of [...] 7 x 30 mm Protege stenting 03/18/14; GRAVE DIGGER 5 x 2 Powerflex and 6 x [...] Auto (Unsp spec) [#/Vol] 1.00 10*3/uL 0.83-4.51 [facility] Absolute neutrophil countOrd ered By: ED PROVIDER on 02-08-2025 Neutrophils (Bld) [#/Vol] 7.7 10*3/uL 2.0-7.7 [facility] Activated partial thrombopla stin time (aPTT) in platelet poor plasma by coagulation aOrdered By: ED PROVIDER on 02-08-2025 aPTT Coag (PPP) [Time] 26.3 s 24.1-36.2 [facility] Anion gap in Serum or Plasma Ordered By: ED PROVIDER on 02-08-2025 Anion gap [Moles/Vol] 18 mmol/L High 5-15 [facility] BUN/creatinine ratioOrdered By: ED PROVIDER on 02-08-2025 Urea nitrogen/Creatinine [Mass ratio] 16.5 mg/mg 10-20 [facility] Basophil percentageOrdered B y: ED PROVIDER on 02-08-2025 Basophils/100 WBC (Bld) 0.7 % 0-1 [facility] Blood platelets count (numbe r/volume)Ordered By: ED PROVIDER on 02-08-2025 Platelets (Bld) [#/Vol] 200 10*3/uL 150-450 [facility] Carbon dioxide, total [Moles /volume] in Central venous bloodOrdered By: ED PROVIDER on 02-08-2025 CO2 [Moles/Vol] 20.0 mmol/L Low 21.0-32.0 [facility] Chloride assayOrdered By: ED PROVIDER on 02-08-2025 Chloride [Moles/Vol] 103 mmol/L 98-108 [facility] Eosinophil %Ordered By: ED P ROVIDER on 02-08-2025 Eosinophils/100 WBC (Bld) 4.1 % 0-5 [facility] Erythrocyte distribution wid th ratioOrdered By: ED PROVIDER on 02-08-2025 Erythrocyte distribution width (RBC) [Ratio] 14.8 % High 11.6-14.6 [facility] Glomerular filtration rate ( GFR) estimation/1.73 sq m using serum, plasma, or whole bOrdered By: ED PROVIDER on 02-08-2025 GFR/1.73 sq M.predicted among non-blacks MDRD (S/P/Bld) [Vol rate/Area] 52 mL/min/{1.73_m2} Low >60 [facility] Hematocrit Auto (Bld) [Volum e fraction]Ordered By: ED PROVIDER on 02-08-2025 Hematocrit (Bld) [Volume fraction] 47.7 % 40-54 [facility] Hemoglobin measurementOrdere d By: ED PROVIDER on 02-08-2025 Hemoglobin (Bld) [Mass/Vol] 16.3 g/dL 13.0-16.5 [facility] Immature granulocyte percent ageOrdered By: ED PROVIDER on 02-08-2025 Immature granulocytes/100 WBC (Bld) 1.500 % High 0.0-0.9 [facility] Comment on above: IG% - Immature Granu locytes (promyelocytes, myelocytes and metamyelocytes) > 1% indicates that a LEFT SHIFT is Present. International normalized rat io (INR) calculationOrdered By: ED PROVIDER on 02-08-2025 INR Coag (Bld) [Relative time] 1.0 {INR} [facility] Lymphocyte %Ordered By: ED P ROVIDER on 02-08-2025 Lymphocytes/100 WBC (Bld) 9.9 % Low 19-41 [facility] MCV (mean corpuscular volume ) determinationOrdered By: ED PROVIDER on 02-08-2025 MCV (RBC) [Entitic vol] 89.5 fL 80-94 [facility] Magnesium measurement (mass/ volume)Ordered By: Janice Sanford on 02-08-2025 Magnesium (Unsp spec) [Mass/Vol] 1.8 mg/dL 1.5-2.2 [facility] Mean corpuscular hemoglobin (MCH) determinationOrdered By: ED PROVIDER on 02-08-2025 MCH (RBC) [Entitic mass] 30.6 pg 27.0-32.0 [facility] Mean corpuscular hemoglobin concentration (MCHC) determinationOrdered By: ED PROVIDER on 02-08-2025 MCHC (RBC) [Mass/Vol] 34.2 g/dL 32-36 [facility] Mean platelet volume determi nationOrdered By: ED PROVIDER on 02-08-2025 Platelet mean volume (Bld) [Entitic vol] 11.3 fL 6.2-12.0 [facility] Monocyte percentageOrdered B y: ED PROVIDER on 02-08-2025 Monocytes/100 WBC (Bld) 8.0 % 0-10 [facility] Neutrophil %Ordered By: ED P ROVIDER on 02-08-2025 Neutrophils/100 WBC (Bld) 75.8 % High 47-70 [facility] Potassium measurement (mass/ volume)Ordered By: ED PROVIDER on 02-08-2025 Potassium (Unsp spec) [Mass/Vol] 3.4 mmol/L 3.3-5.1 [facility] Prothrombin timeOrdered By: ED PROVIDER on 02-08-2025 PT Coag (PPP) [Time] 13.1 s 11.7-14.9 [facility] RBC Auto (Bld) [#/Vol]Ordere d By: ED PROVIDER on 02-08-2025 RBC (Bld) [#/Vol] 5.33 10*6/uL 4.6-6.2 [facility] RDWOrdered By: ED PROVIDER o n 02-08-2025 RDW 47.8 fl High 35.1-43.9 [facility] Serum creatinine measurement (mass/volume)Ordered By: ED PROVIDER on 02-08-2025 Creatinine [Mass/Vol] 1.39 mg/dL High 0.70-1.20 [facility] Serum glucose measurement (m ass/volume)Ordered By: ED PROVIDER on 02-08-2025 Glucose [Mass/Vol] 102 mg/dL High 70-99 [facility] Serum or plasma calcium nichole urement (mass/volume)Ordered By: ED PROVIDER on 02-08-2025 Calcium [Mass/Vol] 9.5 mg/dL 7.6-11.0 [facility] Serum or plasma ethanol nichole urement (mass/volume)Ordered By: ED PROVIDER on 02-08-2025 Ethanol [Mass/Vol] 223.0 mg/dL High <10.1 [facility] Serum or plasma urea nitroge n measurement (mass/volume)Ordered By: ED PROVIDER on 02-08-2025 Urea nitrogen [Mass/Vol] 23 mg/dL High 4-19 [facility] Sodium levelOrdered By: ED P HALLIE on 02-08-2025 Sodium [Moles/Vol] 141 mmol/L 133-145 [facility] Troponin T.cardiac [Mass/vol ume] in Serum or Plasma by High sensitivity methodOrdered By: ED PROVIDER on 02-08-2025 Troponin T.cardiac High sensitivity method [Mass/Vol] 29 ng/L High <22 [facility] White blood cell (WBC) count Ordered By: ED PROVIDER on 02-08-2025 WBC (Bld) [#/Vol] 10.1 10*3/uL 4.4-11.0 [facility] CNPNon 10-31-2024 CNPN Telephone ([facility]) CLARK LYLES ([id number]) 1935 M Date Time Provider Department 10/31/24 BRIGITTE SEGAL [facility] During your visit today, we recorded the following information about you: Jaqueline Andre, ZACKARY 10/31/2024 3:35 PM Signed Palliative Medicine Referral Assessment Referral Accepted: No, Reason for Denial: Chart reviewed, pal med order meant for [facility] in [place]. Jaqueline Andre RN October 31, 2024 Allergies As of Date: 10/31/2024 Noted Allergy Reaction LISINOPRIL 12/28/2009 3 - Cough SULFA (SULFONAMIDE ANTIBIOTICS) 03/09/2006 4 - Hives Date Reviewed: 09/19/2024 Reviewed by: Shirley Rivera MA - Fully Assessed Reason for Visit: [id number] [Other] Initial Consult [665] Prescriptions as of [...] Meds Comments as of 04/18/2021: Taking Saw Victor. Problem List As Of Date 10/31/2024 Noted [...] chronic blood los*01/27/2020 Coronary artery disease involving ekwok rabago*12/22/2020 S/P primary angioplasty with coronary stent [Z9*12/22/2020 Fall from standing [W19.XXXA] 09/20/2021 Encounter for support and coordination of trans*08/11/2023 Acute respiratory failure with hypoxia (HCC) [J*09/25/2023 Encounter Status:Closed by JAQUELINE ANDRE on 10/31/[address] [facility] 10-27-2024 [facility] Telephone (FAMPWS) CLARK LYLES ([id number]) 1935 M Date Time Provider Department 10/27/24 [facility]ITTE SEGAL [facility] During your visit today, we recorded the following information about you: Amita Kim LPN 10/27/2024 3:57 PM Signed Rohan with [facility] calls to report family is requesting order for palliative care. Fax order to [facility] in [place]. Rohan also reports he saw pt today and is extending nurse to once a week x 2 weeks. Pt will then be discharged from Nursing. Rohan reports that Pulmonary gave new dx for pt of COPD and pulmonary htn. HIWOT Mariee Jacqueline A, APRN.[facility] 10/27/2024 4:52 PM Signed Please ask patient [...] Signed Spoke to Paulino (not Rohan) with [facility]. Paulino reports that he did [...] infection (HCC) [J44.0] Order(s):CONSULT TO PALLIATIVE CARE [[id number]] Order #: [id number]: 1 FUTURE Prescriptions as of 10/28/2024 - [...] Meds Comments as of 04/18/2021: Taking Saw Victor. Problem List As Of Date 10/27/2024 Noted Resolved BENIGN HYPERTENSION [I10] 01/08/2006 Anxiety state [F41.1] 01/05/2009 GERD (gastroesophageal reflux disease) [K21.9] 01/10/2011 BPH (benign prostatic hyperplasia) [N40.0] 03/17/2013 PAD (peripheral artery disease) ([facility]) [I73.9] 02/28/2014 Hyperlipidemia LDL goal <100 [E78.5] 03/28/2016 Hyperbilirubinemia [E80.6] 05/10/2016 Parkinson's disease (HCC) [G20.A1] 07/11/2017 Angina pectoris (HCC) [I20.9] 08/25/2019 Restless legs syndrome [G25.81] 01/27/2020 Iron deficiency anemia due to chronic blood los*01/27/2020 Coronary artery disease involving ekwok rabago*12/22/2020 S/P primary angioplasty with coronary stent [Z9*12/22/2020 Fall from standing [W19.XXXA] 09/20/2021 Encounter for support an (more content not included)... Normal [facility] Pulmonary Visit Reporton Pulmonary Visit Report [facility] [place] [address] [place] [address] OFFICE VISIT Date of Service: 10/16/24 MR#: [id number] Acct: [id number] Name: CLARK LYLES Rep #: [id number] : 1935 Provider: MALIKA Taylor Age/Sex: 88/M Location: [facility].PMW Status: Signed Assessment and Plan Assessment and [...] for hospital follow-up after recent hospitalization at [facility] from September 07 through September 15, 2024 [...] H Pu (more content not included)... Normal [facility] CNPNon 10-15-2024 [facility] Telephone (FAMPWS) CLARK LYLES ([id number]) 1935 M Date Time Provider Department 10/15/24 [facility] SEGAL [facility] During your visit today, we recorded the following information about you: Radha Green, RN 10/15/2024 3:04 PM Signed [facility]- nurse- [facility]- reports he did patient eval today and will extend [facility] visits to 1 x week [...] Meds Comments as of 04/18/2021: Taking Saw [employer]. Problem List As Of Date 10/15/2024 Noted Resolved BENIGN HYPERTENSION [I10] 01/08/2006 Anxiety state [F41.1] 01/05/2009 GERD (gastroesophageal reflux disease) [K21.9] 01/10/2011 BPH (benign prostatic hyperplasia) [N40.0] 03/17/2013 PAD (peripheral artery disease) ([facility]) [I73.9] 02/28/2014 Hyperlipidemia LDL goal <100 [E78.5] 03/28/2016 Hyperbilirubinemia [E80.6] 05/10/2016 Parkinson's disease (HCC) [G20.A1] 07/11/2017 Angina pectoris (HCC) [I20.9] 08/25/2019 Restless legs syndrome [G25.81] 01/27/2020 Iron deficiency anemia due to chronic blood los*01/27/2020 Coronary artery disease involving ekwok rabago*12/22/2020 S/P primary angioplasty with coronary stent [Z9*12/22/2020 Fall from standing [W19.XXXA] 09/20/2021 Encounter for support and coordination of trans*08/11/2023 Acute respiratory failure with hypoxia (HCC) [J*09/25/2023 Encounter Status:Closed by Radha GREEN on 10/30/24 [facility] 10-03-2024 [facility] Telephone (COUMWS) CLARK LYLES ([id number]) 1935 M Date Time Provider Department 10/03/24 BRIGITTE SEGAL During your visit today, we recorded the following information about you: Mary Balderas, RN 10/03/2024 2:54 PM Signed Jamie with [facility] is calling due to he [...] needs called back with information. Brigitte Segal APRN.[facility] 10/03/2024 2:59 PM Signed Yes. Please increase O2 to 4l. Thank you for the recert. Shirley Rivera MA 10/03/2024 3:56 PM Signed Detailed message left on secure line for Jamie [facility] Shirley Rivera MA October 03, [...] Meds Comments as of 04/18/2021: Taking Saw Victor. Problem List As Of Date 10/03/2024 Noted [...] chronic blood los*01/27/2020 Coronary artery disease involving ekwok rabago*12/22/2020 S/P primary angioplasty with coronary stent [Z9*12/22/2020 Fall from standing [W19.XXXA] 09/20/2021 Encounter for support and coordination of trans*08/11/2023 Acute respiratory failure with hypoxia (HCC) [J*09/25/2023 Encounter Status:Closed by SHIRLEY RIVERA on 10/03/24 [facility] CNOVon 09-19-2024 CNOV Office Visit (FAMPWS ) CLARK LYLES ([id number]) 1935 M Date Time Provider Department 09/19/24 2:40 PM [facility] During your visit today, we recorded the following information about you: Temperature Pulse Blood pressure Weight 98.7 degrees 80/minute 128/62 72.6 kg Brigitte Segal APRN.ADMIN ASSISTANT 09/19/2024 3:25 PM Signed This is a [...] lipoma performed by Dr. Robe Mackenzie at [facility] REVSC OPN/PRQ FEM/POP W/STNT/ANGIOP SM VSL 03-18-14 [...] 5. [place] (more content not included)... Normal [facility] Mikey 09-19-2024 [facility] Telephone ([place]) CLARK LYLES ([id number]) 1935 M Date Time Provider Department 09/19/24 [facility] SEGAL [facility] During your visit today, we recorded the following information about you: Whit Sheridan RN 09/19/2024 2:23 PM Signed Rohan calling with [facility] Physical Therapy with plan of care for patient. Pt will be seen 1x per week for 4 weeks for functional mobility training. No call back needed if provider agreeable. ZACKARY Vines Jacqueline A, SIGNAL OPERATOR LINGUIST.ADMIN ASSISTANT 09/19/2024 3:33 PM Signed Sounds good. Agree. [...] Meds Comments as of 04/18/2021: Taking Saw Victor. Problem List As Of Date 09/19/2024 Noted [...] chronic blood los*01/27/2020 Coronary artery disease involving ekwok rabago*12/22/2020 S/P primary angioplasty with coronary stent [Z9*12/22/2020 Fall from standing [W19.XXXA] 09/20/2021 Encounter for support and coordination of trans*08/11/2023 Acute respiratory failure with hypoxia (HCC) [J*09/25/2023 Encounter Status:Closed by BRIGITTE SEGAL on 09/19/24 [facility]VEDAP[facility] CLARK LYLES ([id number]) 1935 M Date Time Provider Department 09/17/24 BRIGITTE SEGAL During your visit today, we recorded the following information about you: Tracy Cedillo, RN 09/17/2024 12:57 PM Signed Hellen calling from [facility] to report plan of care for patient and nursing home will visit patient 1 time a week [...] for a week. Patient does not see cvt tech for a month. Hellen did not know if provider wanted to address Oxygen use. Patient is scheduled to see PCP 09/19/2024. No call back needed unless there are questions. ZACKARY Tristan Jacqueline A, SUHKRI.ADMIN ASSISTANT 09/18/2024 8:09 AM Signed Patient will need to stay on oxygen until he follows up with pulmonary. I have not seen him since February 2024 therefore I am not really able to shed any light on his oxygen use. Not common to use oxygen for only a week. Tracy Cedillo RN 09/18/2024 9:53 AM Signed Haley from [facility] calls and reports that granddaughter had [...] provider tomorrow 09/19/2024. Please Contact Haley back [phone]. ZACKARY Tristan Jacqueline A, SHUKRI.ADMIN ASSISTANT 09/18/2024 10:41 AM Signed Absolutely keep at [...] Date Reviewed: 03/27/2024 Reviewed by: Brigitte Segal, SHUKRI.ADMIN ASSISTANT - Fully Assessed Reason for Visit: Mcc [...] Meds Comments as of 04/18/2021: Taking Saw Victor. Problem List As Of Date 09/17/2024 Noted [...] chronic blood los*01/27/2020 Coronary artery disease involving ekwok rabago*12/22/2020 S/P primary angioplasty with coronary stent [Z9*12/22/2020 Fall from standing [W19.XXXA] 09/20/2021 Encounter for support and coordination of trans*08/11/2023 Acute respiratory failure with hypoxia (HCC) [J*09/25/2023 Encounter Status:Closed by TRACY CEDILLO on 09/22/24 [facility] ([id number]) 1935 M Date Time Provider Department 09/15/24 BRIGITTE SEGAL During your visit today, we recorded the following information about you: Tracy Cedillo RN 09/15/2024 3:32 PM Signed Rochelle from [facility] calls and states that patient is being discharged from [facility] PCU on 09/05/2024 with the diagnosis of hypoxia and acute respiratory failure. Rochelle asking if provider willing to follow patient with orders for nursing home, physical therapy, occupational therapy and social work. If agreeable please give Rochelle a call back . Thank you, ZACKARY Tristan Jacqueline A, APRN.[facility] 09/15/2024 4:41 PM Signed Yes. Of course Brigitte Segal APRN.[facility] 09/15/2024 5:31 PM Signed Patient is an [...] Signed Detailed message left for Rochelle at [facility] with verbal agreement of plan. Shirley Rivera MA September 16, 2024 9:12 AM Allergies As of Date: 09/15/2024 Noted Allergy Reaction LISINOPRIL 12/28/2009 3 - Cough SULFA (SULFONAMIDE ANTIBIOTICS) 03/09/2006 4 - Hives Date Reviewed: 03/27/2024 Reviewed by: Brigitte Segal APRN.ADMIN ASSISTANT - Fully Assessed Reason for Visit: Home [...] Meds Comments as of 04/18/2021: Taking Saw Victor. Problem List As Of Date 09/15/2024 Noted Resolved BENIGN HYPERTENSION [I10] 01/08/2006 Anxiety state [F41.1] 01/05/2009 GERD (gastroesophageal reflux disease) [K21.9] 01/10/2011 BPH (benign prostatic hyperplasia) [N40.0] 03/17/2013 PAD (peripheral artery disease) ([facility]) [I73.9] 02/28/2014 Hyperlipidemia LDL goal <100 [E78.5] 03/28/2016 Hyperbilirubinemia [E80.6] 05/10/2016 Parkinson's disease (HCC) [G20.A1] 07/11/2017 Angina pectoris (HCC) [I20.9] 08/25/2019 Restless legs syndrome [G25.81] 01/27/2020 Iron deficiency anemia due to chronic blood los*01/27/2020 Coronary artery disease involving ekwok rabago*12/22/2020 S/P primary angioplasty with coronary stent [Z9* (more content not included)... Normal [facility] Discharge Instructionon 08-30 Discharge Instruction [facility] Medical Records Department [id number] [address] [place] [address] Instructions for Home/Discharge Instructions 09/15/24905 MR#: [id number] Acct: [id number] Name: CLARK LYLES Rep #: [id number] : [id number] From: John Soliz MD PCP: Brigitte Segal, [employer]LY[employer] Status:ADM IN Discharge Instructions Diet Discharge Diet: [...] MD; Dr. Lester Perdomo DO Signed Normal [facility] Serum or plasma trough vanco mycin levelOrdered By: Jerrell Monterroso on 09-15-2024 Vancomycin trough [Mass/Vol] 16.5 ug/mL High 5.0-15.0 [facility] Comment on above: VANCOMYCIN STANDARED DRUG THERAPY TROUGH LEVEL: 5.0 - 15.0 mg/L VANCOMYCIN HIGH INTENSITY THERAPY TROUGH LEVEL: 15.0 - 20.0 mg/L High Intensity therapy recommended for serious lifethreatening infections include:- Wwovsfbdlo-Zknaqqcvpvcq-Atgjfdyuy (Ventilator/Healtcare Associated)-Sepsis PLEASE CONTACT PHARMACY SERVICES (#[id number]) FOR INTERPRETATIONOF RESULTS. Vancomycin, Trough Levelon 0 09-15-2024 VANCO, TROUGH 16.5 ug/mL High 5.0-15.0 [facility] Comment on above: Order Comment: Comme nts: Trough to be drawn 30 mins prior to scheduled [id number] Result Comment: VANC OMYCIN STANDARED DRUG THERAPY TROUGH LEVEL: 5.0 - 15.0 mg/L VANCOMYCIN HIGH INTENSITY THERAPY TROUGH LEVEL: 15.0 - 20.0 mg/L High Intensity therapy recommended for serious life threatening infections include: - Meningitis -Endocarditis -Pneumonia (Ventilator/Healtcare Associated) -Sepsis PLEASE CONTACT PHARMACY SERVICES (#[id number]) FOR INTERPRETATION OF RESULTS. Performed By: #### L 100.0100, L500.2500 #### [facility] [address] [place], [address] Absolute lymphocyte countOrd ered By: Lester Perdomo on 09-14-2024 Lymphocytes Auto (Unsp spec) [#/Vol] 1.09 10*3/uL 0.83-4.51 [facility] Absolute neutrophil countOrd ered By: Lester Perdomo on 09-14-2024 Neutrophils (Bld) [#/Vol] 12.0 10*3/uL High 2.0-7.7 [facility] Automated lymphocyte count a s percentage of total leukocytesOrdered By: Lester Perdomo on 09-14-2024 Lymphocytes/100 WBC Auto (Unsp spec) 7.3 % Low 19-41 [facility] Basic Metabolic Profile (BMP )on 09-14-2024 BUN/CRE 44.2 RATIO High 10-20 [facility] Comment on above: Performed By: #### L 100.0100, L500.2500 #### [facility] [address] [place], [address] CA,Total 8.6 mg/dL Normal 8.5-10.1 [facility] Comment on above: Performed By: #### L 100.0100, L500.2500 #### [facility] [address] [place], [address] Chloride [Moles/Vol] 106 mmol/L Normal 98-107 [facility] Comment on above: Performed By: #### L 100.0100, L500.2500 #### [facility] [address] [place], [address] CO2 [Moles/Vol] 27.0 mmol/L Normal 21.0-32.0 [facility] Comment on above: Performed By: #### L 100.0100, L500.2500 #### [facility] [address] [place], [address] Creatinine [Mass/Vol] 0.84 mg/dL Normal 0.70-1.30 [facility] Comment on above: Result Comment: The validity of the calculated GFR GFRAA in patients over 70 years has not been determined. Clinical correlation is essential. Performed By: #### L 100.0100, L500.2500 #### [facility] [address] [place], [address] ECRCL 63.04 ml/min Normal [facility] Comment on above: Performed By: #### L 100.0100, L500.2500 #### [facility] [address] [place], [address] EST GFR - AA 112 mL/min Normal >60 [facility] Comment on above: Result Comment: Afri can [place]an GFR Calc Performed By: #### L 100.0100, L500.2500 #### [facility] [address] [place], [address] GAP 6 Normal 5-15 [facility] Comment on above: Performed By: #### L 100.0100, L500.2500 #### [facility] [address] [place], [address] GFR/1.73 sq M.predicted among non-blacks MDRD (S/P/Bld) [Vol rate/Area] 92 mL/min/{1.73_m2} Normal >60 [facility] Comment on above: Result Comment: Non- GFR Calc Performed By: #### L 100.0100, L500.2500 #### [facility] [address] [place], [address] Glucose [Mass/Vol] 156 mg/dL High 74-106 [facility] Comment on above: Result Comment: Fast ing Glucose result greater than or equal to 126 mg/dL suggests DIABETES MELLITUS per A.D.A. criteria. Performed By: #### L 100.0100, L500.2500 #### [facility] [address] [place], [address] Potassium [Moles/Vol] 3.4 mmol/L Low 3.5-5.1 [facility] Comment on above: Performed By: #### L 100.0100, L500.2500 #### [facility] [address] [place], [address] Sodium [Moles/Vol] 139 mmol/L Normal 136-145 [facility] Comment on above: Performed By: #### L 100.0100, L500.2500 #### [facility] [address] [place], [address] Urea nitrogen [Mass/Vol] 37 mg/dL High 7-18 [facility] Comment on above: Performed By: #### L 100.0100, L500.2500 #### [facility] [address] [place], [address] Basophil percentageOrdered B y: Lester Perdomo on 09-14-2024 Basophils/100 WBC (Bld) 0.1 % 0-1 [facility] Blood urea nitrogen (BUN)/cr eatinine ratioOrdered By: Lester Perdomo on 09-14-2024 Urea nitrogen/Creatinine [Mass ratio] 44.2 mg/mg High 10-20 [facility] CBC W/Diff, Automatedon - REACTIVE LYMPH 1+ Normal [facility] Comment on above: Performed By: #### L 100.0100, L500.2500 #### [facility] [address] [place], [address] Carbon dioxide measurementOr dered By: Lester Perdomo on 09-14-2024 CO2 [Moles/Vol] 27.0 mmol/L 21.0-32.0 [facility] Chloride measurementOrdered By: Lester Perdomo on 09-14-2024 Chloride [Moles/Vol] 106 mmol/L 98-107 [facility] Eosinophil percentageOrdered By: Lester Perdomo on 09-14-2024 Eosinophils/100 WBC (Bld) 0.3 % 0-5 [facility] Erythrocyte distribution wid th ratioOrdered By: Lester Perdomo on 09-14-2024 Erythrocyte distribution width (RBC) [Ratio] 16.1 % High 11.6-14.6 [facility] Erythrocyte distribution wid th standard deviationOrdered By: Lester Perdomo on 09-14-2024 Erythrocyte distribution width (RBC) [Ratio] 56.8 fl High 35.1-43.9 [facility] Glomerular filtration rate ( GFR) estimationOrdered By: Lester Perdomo on 09-14-2024 GFR/1.73 sq M.predicted among non-blacks MDRD (S/P/Bld) [Vol rate/Area] 92 mL/min/{1.73_m2} >60 [facility] Comment on above: Non- GFR Calc Glucose measurementOrdered B y: Lester Perdomo on 09-14-2024 Glucose [Mass/Vol] 156 mg/dL High 74-106 [facility] Comment on above: Fasting Glucose resu lt greater than or equal to 126 mg/dL suggests DIABETES MELLITUS per A.D.A. criteria. Hematocrit Auto (Bld) [Volum e fraction]Ordered By: Lester Perdomo on 09-14-2024 Hematocrit (Bld) [Volume fraction] 43.5 % 40-54 [facility] Hemoglobin measurementOrdere d By: Lester Perdomo on 09-14-2024 Hemoglobin (Bld) [Mass/Vol] 14.3 g/dL 13.0-16.5 [facility] Immature granulocytes/100 WB C Auto (Bld)Ordered By: Lester Perdomo on 09-14-2024 Immature granulocytes/100 WBC (Bld) 4.800 % High 0.0-0.9 [facility] Comment on above: IG% - Immature Granu locytes (promyelocytes, myelocytes and metamyelocytes) > 1% indicates that a LEFT SHIFT is Present. MCV (mean corpuscular volume ) determinationOrdered By: Lester Perdomo on 09-14-2024 MCV (RBC) [Entitic vol] 96.2 fL High 80-94 [facility] Mean corpuscular hemoglobin (MCH) determinationOrdered By: Lester Perdomo 09-14-2024 MCH (RBC) [Entitic mass] 31.6 pg 27.0-32.0 [facility] Mean corpuscular hemoglobin concentration (MCHC) determinationOrdered By: Lester Perdomo on 09-14-2024 MCHC (RBC) [Mass/Vol] 32.9 g/dL 32-36 [facility] Mean platelet volume determi nationOrdered By: Lester Perdomo on 09-14-2024 Platelet mean volume (Bld) [Entitic vol] 11.7 fL 6.2-12.0 [facility] Monocyte percentageOrdered B y: Lester Perdomo on 09-14-2024 Monocytes/100 WBC (Bld) 7.0 % 0-10 [facility] Neutrophil percentageOrdered By: Lester Perdomo on 09-14-2024 Neutrophils/100 WBC (Bld) 80.5 % High 47-70 [facility] Nucleated red blood cell per centageOrdered By: Lester Perdomo on 09-14-2024 Nucleated RBC/100 WBC (Bld) [Ratio] 0 % 0-5 [facility] Platelet countOrdered By: Geovany Perdomo on 09-14-2024 Platelets (Bld) [#/Vol] 152 10*3/uL 150-450 [facility] Potassium measurementOrdered By: Lester Perdomo on 09-14-2024 Potassium [Moles/Vol] 3.4 mmol/L Low 3.5-5.1 [facility] RBC Auto (Bld) [#/Vol]Ordere d By: Lester Perdomo on 09-14-2024 RBC (Bld) [#/Vol] 4.52 10*6/uL Low 4.6-6.2 [facility] Serum anion gap measurementO rdered By: Lester Perdomo on 09-14-2024 Anion gap [Moles/Vol] 6 mmol/L 5-15 [facility] Serum or plasma calcium nichole urement (mass/volume)Ordered By: Lester Perdomo on 09-14-2024 Calcium [Mass/Vol] 8.6 mg/dL 8.5-10.1 [facility] Serum or plasma creatinine m easurement (mass/volume)Ordered By: Lester Perdomo on 09-14-2024 Creatinine [Mass/Vol] 0.84 mg/dL 0.70-1.30 [facility] Comment on above: The validity of the calculated GFR & GFRAA in patients over 70 years has not been determined. Clinical correlation is essential. Serum or plasma urea nitroge n measurement (mass/volume)Ordered By: Lester Perdomo on 09-14-2024 Urea nitrogen [Mass/Vol] 37 mg/dL High 7-18 [facility] Sodium levelOrdered By: Lester Perdomo on 09-14-2024 Sodium [Moles/Vol] 139 mmol/L 136-145 [facility] White blood cell (WBC) count Ordered By: Lester Perdomo on 09-14-2024 WBC (Bld) [#/Vol] 14.9 10*3/uL High 4.4-11.0 [facility] Basic Metabolic Profile (BMP )on 09-13-2024 BUN/CRE 30.9 RATIO High 10-20 [facility] Comment on above: Performed By: #### L 100.0100, L500.2500 #### [facility] [address] [place], [address] CA,Total 8.6 mg/dL Normal 8.5-10.1 [facility] Comment on above: Performed By: #### L 100.0100, L500.2500 #### [facility] [address] [place], [address] Chloride [Moles/Vol] 103 mmol/L Normal 98-107 [facility] Comment on above: Performed By: #### L 100.0100, L500.2500 #### [facility] [address] [place], [address] CO2 [Moles/Vol] 33.0 mmol/L High 21.0-32.0 [facility] Comment on above: Performed By: #### L 100.0100, L500.2500 #### [facility] [address] [place], [address] Creatinine [Mass/Vol] 1.10 mg/dL Normal 0.70-1.30 [facility] Comment on above: Result Comment: The validity of the calculated GFR GFRAA in patients over 70 years has not been determined. Clinical correlation is essential. Performed By: #### L 100.0100, L500.2500 #### [facility] [address] [place], [address] ECRCL 49.57 ml/min Normal [facility] Comment on above: Performed By: #### L 100.0100, L500.2500 #### [facility] [address] [place], [address] EST GFR - AA 82 mL/min Normal >60 [facility] Comment on above: Result Comment: Afri can [place]an GFR Calc Performed By: #### L 100.0100, L500.2500 #### [facility] [address] [place], [address] GAP 3 Low 5-15 [facility] Comment on above: Performed By: #### L 100.0100, L500.2500 #### [facility] [address] [place], [address] GFR/1.73 sq M.predicted among non-blacks MDRD (S/P/Bld) [Vol rate/Area] 67 mL/min/{1.73_m2} Normal >60 [facility] Comment on above: Result Comment: Non- GFR Calc Performed By: #### L 100.0100, L500.2500 #### [facility] [address] [place], [address] Glucose [Mass/Vol] 168 mg/dL High 74-106 [facility] Comment on above: Result Comment: Fast ing Glucose result greater than or equal to 126 mg/dL suggests DIABETES MELLITUS per A.D.A. criteria. Performed By: #### L 100.0100, L500.2500 #### [facility] [address] [place], [address] Potassium [Moles/Vol] 3.3 mmol/L Low 3.5-5.1 [facility] Comment on above: Performed By: #### L 100.0100, L500.2500 #### [facility] [address] [place], [address] Sodium [Moles/Vol] 139 mmol/L Normal 136-145 [facility] Comment on above: Performed By: #### L 100.0100, L500.2500 #### [facility] [address] [place], [address] Urea nitrogen [Mass/Vol] 34 mg/dL High 7-18 [facility] Comment on above: Performed By: #### L 100.0100, L500.2500 #### [facility] [address] [place], [address] CBC W/Diff, Automatedon 08-30 Absolute Lymph 0.43 X10 3/uL Low 0.83-4.51 [facility] Comment on above: Performed By: #### L 100.0100, L500.2500 #### [facility] [address] [place], [address] Absolute Neut 12.2 X10 3/uL High 2.0-7.7 [facility] Comment on above: Performed By: #### L 100.0100, L500.2500 #### [facility] [address] [place], [address] Basophils/100 WBC (Bld) 0.7 % Normal 0-1 [facility] Comment on above: Performed By: #### L 100.0100, L500.2500 #### [facility] [address] [place], [address] Eosinophils/100 WBC (Bld) 0.0 % Normal 0-5 [facility] Comment on above: Performed By: #### L 100.0100, L500.2500 #### [facility] [address] [place], [address] Erythrocyte distribution width (RBC) [Ratio] 15.8 % High 11.6-14.6 [facility] Comment on above: Performed By: #### L 100.0100, L500.2500 #### [facility] [address] [place], [address] Hematocrit (Bld) [Volume fraction] 45.7 % Normal 40-54 [facility] Comment on above: Performed By: #### L 100.0100, L500.2500 #### [facility] [address] [place], [address] Hemoglobin (Bld) [Mass/Vol] 15.5 g/dL Normal 13.0-16.5 [facility] Comment on above: Performed By: #### L 100.0100, L500.2500 #### [facility] [address] [place], [address] IG% 2.600 High 0.0-0.9 [facility] Comment on above: Result Comment: IG% - Immature Granulocytes (promyelocytes, myelocytes and metamyelocytes) > 1% indicates that a LEFT SHIFT is Present. Performed By: #### L 100.0100, L500.2500 #### [facility] [address] [place], [address] Lymphocytes/100 WBC (Bld) 3.2 % Low 19-41 [facility] Comment on above: Performed By: #### L 100.0100, L500.2500 #### [facility] [address] [place], [address] MCH (RBC) [Entitic mass] 32.0 pg Normal 27.0-32.0 [facility] Comment on above: Performed By: #### L 100.0100, L500.2500 #### [facility] [address] [place], [address] MCHC (RBC) [Mass/Vol] 33.9 g/dL Normal 32-36 [facility] Comment on above: Performed By: #### L 100.0100, L500.2500 #### [facility] [address] [place], [address] MCV (RBC) [Entitic vol] 94.4 fL High 80-94 [facility] Comment on above: Performed By: #### L 100.0100, L500.2500 #### [facility] [address] [place], [address] Monocytes/100 WBC (Bld) 3.8 % Normal 0-10 [facility] Comment on above: Performed By: #### L 100.0100, L500.2500 #### [facility] [address] [place], [address] Neutrophils/100 WBC (Bld) 89.7 % High 47-70 [facility] Comment on above: Performed By: #### L 100.0100, L500.2500 #### [facility] [address] [place], [address] Nucleated RBC (Bld) [#/Vol] 0 10*3/uL Normal 0-5 [facility] Comment on above: Performed By: #### L 100.0100, L500.2500 #### [facility] [address] [place], [address] Platelet mean volume (Bld) [Entitic vol] 11.4 fL Normal 6.2-12.0 [facility] Comment on above: Performed By: #### L 100.0100, L500.2500 #### [facility] [address] [place], [address] Platelets (Bld) [#/Vol] 162 10*3/uL Normal 150-450 [facility] Comment on above: Performed By: #### L 100.0100, L500.2500 #### [facility] [address] [place], [address] RBC (Bld) [#/Vol] 4.84 10*6/uL Normal 4.6-6.2 [facility] Comment on above: Performed By: #### L 100.0100, L500.2500 #### [facility] [address] [place], [address] RDW SD 54.8 fl High 35.1-43.9 [facility] Comment on above: Performed By: #### L 100.0100, L500.2500 #### [facility] [address] [place], [address] WBC (Bld) [#/Vol] 13.5 10*3/uL High 4.4-11.0 [facility] Comment on above: Performed By: #### L 100.0100, L500.2500 #### [facility] [address] [place], [address] Vancomycin, Trough Levelon 0 - VANCO, TROUGH 17.0 ug/mL High 5.0-15.0 [facility] Comment on above: Order Comment: Comme nts: DRAW 30 MIN PRIOR TO DOSE 0330 Result Comment: VANC OMYCIN STANDARED DRUG THERAPY TROUGH LEVEL: 5.0 - 15.0 mg/L VANCOMYCIN HIGH INTENSITY THERAPY TROUGH LEVEL: 15.0 - 20.0 mg/L High Intensity therapy recommended for serious life threatening infections include: - Meningitis -Endocarditis -Pneumonia (Ventilator/Healtcare Associated) -Sepsis PLEASE CONTACT PHARMACY SERVICES (#[id number]) FOR INTERPRETATION OF RESULTS. Performed By: #### L 501.8820 #### [facility] [address] [place], [address] Basic Metabolic Profile (BMP )on 09-12-2024 BUN/CRE 33.2 RATIO High 10-20 [facility] Comment on above: Performed By: #### L 100.0100, L500.2500 #### [facility] [address] [place], [address] CA,Total 8.5 mg/dL Normal 8.5-10.1 [facility] Comment on above: Performed By: #### L 100.0100, L500.2500 #### [facility] [address] [place], [address] Chloride [Moles/Vol] 105 mmol/L Normal 98-107 [facility] Comment on above: Performed By: #### L 100.0100, L500.2500 #### [facility] [address] [place], [address] CO2 [Moles/Vol] 28.0 mmol/L Normal 21.0-32.0 [facility] Comment on above: Performed By: #### L 100.0100, L500.2500 #### [facility] [address] [place], [address] Creatinine [Mass/Vol] 0.96 mg/dL Normal 0.70-1.30 [facility] Comment on above: Result Comment: The validity of the calculated GFR GFRAA in patients over 70 years has not been determined. Clinical correlation is essential. Performed By: #### L 100.0100, L500.2500 #### [facility] [address] [place], [address] ECRCL 56.80 ml/min Normal [facility] Comment on above: Performed By: #### L 100.0100, L500.2500 #### [facility] [address] [place], [address] EST GFR - AA 95 mL/min Normal >60 [facility] Comment on above: Result Comment: Afri can [place] GFR Calc Performed By: #### L 100.0100, L500.2500 #### [facility] [address] [place], [address] GAP 7 Normal 5-15 [facility] Comment on above: Performed By: #### L 100.0100, L500.2500 #### [facility] [address] [place], [address] GFR/1.73 sq M.predicted among non-blacks MDRD (S/P/Bld) [Vol rate/Area] 78 mL/min/{1.73_m2} Normal >60 [facility] Comment on above: Result Comment: Non- GFR Calc Performed By: #### L 100.0100, L500.2500 #### [facility] [address] [place], [address] Glucose [Mass/Vol] 156 mg/dL High 74-106 [facility] Comment on above: Result Comment: Fast ing Glucose result greater than or equal to 126 mg/dL suggests DIABETES MELLITUS per A.D.A. criteria. Performed By: #### L 100.0100, L500.2500 #### [facility] [address] [place], [address] Potassium [Moles/Vol] 3.4 mmol/L Low 3.5-5.1 [facility] Comment on above: Performed By: #### L 100.0100, L500.2500 #### [facility] [address] [place], [address] Sodium [Moles/Vol] 140 mmol/L Normal 136-145 [facility] Comment on above: Performed By: #### L 100.0100, L500.2500 #### [facility] [address] [place], [address] Urea nitrogen [Mass/Vol] 32 mg/dL High 7-18 [facility] Comment on above: Performed By: #### L 100.0100, L500.2500 #### [facility] [address] [place], [address] CBC W/Diff, Automatedon 08-30 Absolute Lymph 0.46 X10 3/uL Low 0.83-4.51 [facility] Comment on above: Performed By: #### L 100.0100, L500.2500 #### [facility] [address] [place], [address] Absolute Neut 11.3 X10 3/uL High 2.0-7.7 [facility] Comment on above: Performed By: #### L 100.0100, L500.2500 #### [facility] [address] [place], [address] Basophils/100 WBC (Bld) 0.2 % Normal 0-1 [facility] Comment on above: Performed By: #### L 100.0100, L500.2500 #### [facility] [address] [place], [address] Eosinophils/100 WBC (Bld) 0.0 % Normal 0-5 [facility] Comment on above: Performed By: #### L 100.0100, L500.2500 #### [facility] [address] [place], [address] Erythrocyte distribution width (RBC) [Ratio] 15.9 % High 11.6-14.6 [facility] Comment on above: Performed By: #### L 100.0100, L500.2500 #### [facility] [address] [place], [address] Hematocrit (Bld) [Volume fraction] 44.7 % Normal 40-54 [facility] Comment on above: Performed By: #### L 100.0100, L500.2500 #### [facility] [address] [place], [address] Hemoglobin (Bld) [Mass/Vol] 14.9 g/dL Normal 13.0-16.5 [facility] Comment on above: Performed By: #### L 100.0100, L500.2500 #### [facility] [address] [place], [address] IG% 1.700 High 0.0-0.9 [facility] Comment on above: Result Comment: IG% - Immature Granulocytes (promyelocytes, myelocytes and metamyelocytes) > 1% indicates that a LEFT SHIFT is Present. Performed By: #### L 100.0100, L500.2500 #### [facility] [address] [place], [address] Lymphocytes/100 WBC (Bld) 3.6 % Low 19-41 [facility] Comment on above: Performed By: #### L 100.0100, L500.2500 #### [facility] [address] [place], [address] MCH (RBC) [Entitic mass] 31.6 pg Normal 27.0-32.0 [facility] [facility] Comment on above: Performed By: #### L 100.0100, L500.2500 #### [facility] [address] [place], [address] MCHC (RBC) [Mass/Vol] 33.3 g/dL Normal 32-36 [facility] Comment on above: Performed By: #### L 100.0100, L500.2500 #### [facility] [address] [place], [address] MCV (RBC) [Entitic vol] 94.7 fL High 80-94 [facility] Comment on above: Performed By: #### L 100.0100, L500.2500 #### [facility] [address] [place], [address] Monocytes/100 WBC (Bld) 4.7 % Normal 0-10 [facility] Comment on above: Performed By: #### L 100.0100, L500.2500 #### [facility] [address] [place], [address] Neutrophils/100 WBC (Bld) 89.8 % High 47-70 [facility] Comment on above: Performed By: #### L 100.0100, L500.2500 #### [facility] [address] [place], [address] Nucleated RBC (Bld) [#/Vol] 0 10*3/uL Normal 0-5 [facility] Comment on above: Performed By: #### L 100.0100, L500.2500 #### [facility] [address] [place], [address] Platelet mean volume (Bld) [Entitic vol] 11.5 fL Normal 6.2-12.0 [facility] Comment on above: Performed By: #### L 100.0100, L500.2500 #### [facility] [address] [place], [address] Platelets (Bld) [#/Vol] 165 10*3/uL Normal 150-450 [facility] Comment on above: Performed By: #### L 100.0100, L500.2500 #### [facility] [address] [place], [address] RBC (Bld) [#/Vol] 4.72 10*6/uL Normal 4.6-6.2 [facility] Comment on above: Performed By: #### L 100.0100, L500.2500 #### [facility] [address] [place], [address] RDW SD 55.7 fl High 35.1-43.9 [facility] Comment on above: Performed By: #### L 100.0100, L500.2500 #### [facility] [address] [place], [address] WBC (Bld) [#/Vol] 12.6 10*3/uL High 4.4-11.0 [facility] Comment on above: Performed By: #### L 100.0100, L500.2500 #### [facility] [address] [place], [address] Respiratory Cultureon 2024 RESPC Mixed normal respira tory argenis. No Haemophilus, Streptococcus pneumoniae, beta-hemolytic Streptococcus or Staphylococcus aureus isolated. Normal [facility] Comment on above: Performed By: #### M 100.2400, M100.2000 ####[facility] [address] [place], [address] CBC W/Diff, Automatedon 08-30 Absolute Lymph 0.43 X10 3/uL Low 0.83-4.51 [facility] Comment on above: Performed By: #### L 100.0100 #### [facility] [address] [place], [address] Absolute Neut 11.6 X10 3/uL High 2.0-7.7 [facility] Comment on above: Performed By: #### L 100.0100 #### [facility] [address] [place], [address] Basophils/100 WBC (Bld) 0.1 % Normal 0-1 [facility] Comment on above: Performed By: #### L 100.0100 #### [facility] [address] [place], [address] Eosinophils/100 WBC (Bld) 0.0 % Normal 0-5 [facility] Comment on above: Performed By: #### L 100.0100 #### [facility] [address] [place], [address] Erythrocyte distribution width (RBC) [Ratio] 16.1 % High 11.6-14.6 [facility] Comment on above: Performed By: #### L 100.0100 #### [facility] [address] [place], [address] Hematocrit (Bld) [Volume fraction] 44.9 % Normal 40-54 [facility] Comment on above: Performed By: #### L 100.0100 #### [facility] [address] [place], [address] Hemoglobin (Bld) [Mass/Vol] 14.8 g/dL Normal 13.0-16.5 [facility] Comment on above: Performed By: #### L 100.0100 #### [facility] [address] [place], [address] IG% 1.600 High 0.0-0.9 [facility] Comment on above: Result Comment: IG% - Immature Granulocytes (promyelocytes, myelocytes and metamyelocytes) > 1% indicates that a LEFT SHIFT is Present. Performed By: #### L 100.0100 #### [facility] [address] [place], [address] Lymphocytes/100 WBC (Bld) 3.4 % Low 19-41 [facility] Comment on above: Performed By: #### L 100.0100 #### [facility] [address] [place], [address] MCH (RBC) [Entitic mass] 31.5 pg Normal 27.0-32.0 [facility] Comment on above: Performed By: #### L 100.0100 #### [facility] [address] [place], [address] MCHC (RBC) [Mass/Vol] 33.0 g/dL Normal 32-36 [facility] Comment on above: Performed By: #### L 100.0100 #### [facility] [address] [place], [address] MCV (RBC) [Entitic vol] 95.5 fL High 80-94 [facility] Comment on above: Performed By: #### L 100.0100 #### [facility] [address] [place], [address] Monocytes/100 WBC (Bld) 4.1 % Normal 0-10 [facility] Comment on above: Performed By: #### L 100.0100 #### [facility] [address] [place], [address] Neutrophils/100 WBC (Bld) 90.8 % High 47-70 [facility] Comment on above: Performed By: #### L 100.0100 #### [facility] [address] [place], [address] Nucleated RBC (Bld) [#/Vol] 0 10*3/uL Normal 0-5 [facility] Comment on above: Performed By: #### L 100.0100 #### [facility] [address] [place], [address] Platelet mean volume (Bld) [Entitic vol] 11.3 fL Normal 6.2-12.0 [facility] Comment on above: Performed By: #### L 100.0100 #### [facility] [address] [place], [address] Platelets (Bld) [#/Vol] 156 10*3/uL Normal 150-450 [facility] Comment on above: Performed By: #### L 100.0100 #### [facility] [address] [place], [address] RBC (Bld) [#/Vol] 4.70 10*6/uL Normal 4.6-6.2 [facility] Comment on above: Performed By: #### L 100.0100 #### [facility] [address] [place], [address] RDW SD 57.0 fl High 35.1-43.9 [facility] Comment on above: Performed By: #### L 100.0100 #### [facility] [address] [place], [address] WBC (Bld) [#/Vol] 12.8 10*3/uL High 4.4-11.0 [facility] Comment on above: Performed By: #### L 100.0100 #### [facility] [address] [place], [address] Basic Metabolic Profile (BMP )on 09-10-2024 BUN/CRE 37.5 RATIO High 10-20 [facility] Comment on above: Performed By: #### L 100.0100, L500.2500 #### [facility] [address] [place], [address] CA,Total 8.9 mg/dL Normal 8.5-10.1 [facility] Comment on above: Performed By: #### L 100.0100, L500.2500 #### [facility] [address] [place], [address] Chloride [Moles/Vol] 111 mmol/L High 98-107 [facility] Comment on above: Performed By: #### L 100.0100, L500.2500 #### [facility] [address] [place], [address] CO2 [Moles/Vol] 27.0 mmol/L Normal 21.0-32.0 [facility] Comment on above: Performed By: #### L 100.0100, L500.2500 #### [facility] [address] [place], [address] Creatinine [Mass/Vol] 0.77 mg/dL Normal 0.70-1.30 [facility] Comment on above: Result Comment: The validity of the calculated GFR GFRAA in patients over 70 years has not been determined. Clinical correlation is essential. Performed By: #### L 100.0100, L500.2500 #### [facility] [address] [place], [address] ECRCL 67.03 ml/min Normal [facility] Comment on above: Performed By: #### L 100.0100, L500.2500 #### [facility] [address] [place], [address] EST GFR - AA 122 mL/min Normal >60 [facility] Comment on above: Result Comment: Afri can [place] GFR Calc Performed By: #### L 100.0100, L500.2500 #### [facility] [address] [place], [address] GAP 5 Normal 5-15 [facility] Comment on above: Performed By: #### L 100.0100, L500.2500 #### [facility] [address] [place], [address] GFR/1.73 sq M.predicted among non-blacks MDRD (S/P/Bld) [Vol rate/Area] 101 mL/min/{1.73_m2} Normal >60 [facility] Comment on above: Result Comment: Non- GFR Calc Performed By: #### L 100.0100, L500.2500 #### [facility] [address] [place], [address] Glucose [Mass/Vol] 132 mg/dL High 74-106 [facility] Comment on above: Result Comment: Fast ing Glucose result greater than or equal to 126 mg/dL suggests DIABETES MELLITUS per A.D.A. criteria. Performed By: #### L 100.0100, L500.2500 #### [facility] [address] [place], [address] Potassium [Moles/Vol] 3.7 mmol/L Normal 3.5-5.1 [facility] Comment on above: Performed By: #### L 100.0100, L500.2500 #### [facility] [address] [place], [address] Sodium [Moles/Vol] 142 mmol/L Normal 136-145 [facility] Comment on above: Performed By: #### L 100.0100, L500.2500 #### [facility] [address] [place], [address] Urea nitrogen [Mass/Vol] 29 mg/dL High 7-18 [facility] Comment on above: Performed By: #### L 100.0100, L500.2500 #### [facility] [address] [place], [address] CBC W/Diff, Automatedon 08-30 Absolute Lymph 0.39 X10 3/uL Low 0.83-4.51 [facility] Comment on above: Performed By: #### L 100.0100, L500.2500 #### [facility] [address] [place], [address] Absolute Neut 10.7 X10 3/uL High 2.0-7.7 [facility] Comment on above: Performed By: #### L 100.0100, L500.2500 #### [facility] [address] [place], [address] Basophils/100 WBC (Bld) 0.2 % Normal 0-1 [facility] Comment on above: Performed By: #### L 100.0100, L500.2500 #### [facility] [address] [place], [address] Eosinophils/100 WBC (Bld) 0.0 % Normal 0-5 [facility] Comment on above: Performed By: #### L 100.0100, L500.2500 #### [facility] [address] [place], [address] Erythrocyte distribution width (RBC) [Ratio] 16.5 % High 11.6-14.6 [facility] Comment on above: Performed By: #### L 100.0100, L500.2500 #### [facility] [address] [place], [address] Hematocrit (Bld) [Volume fraction] 43.4 % Normal 40-54 [facility] Comment on above: Performed By: #### L 100.0100, L500.2500 #### [facility] [address] [place], [address] Hemoglobin (Bld) [Mass/Vol] 14.7 g/dL Normal 13.0-16.5 [facility] Comment on above: Performed By: #### L 100.0100, L500.2500 #### [facility] [address] [place], [address] IG% 1.200 High 0.0-0.9 [facility] Comment on above: Result Comment: IG% - Immature Granulocytes (promyelocytes, myelocytes and metamyelocytes) > 1% indicates that a LEFT SHIFT is Present. Performed By: #### L 100.0100, L500.2500 #### [facility] [address] [facility] [place], [address] Lymphocytes/100 WBC (Bld) 3.3 % Low 19-41 [facility] Comment on above: Performed By: #### L 100.0100, L500.2500 #### [facility] [address] [place], [address] MCH (RBC) [Entitic mass] 32.3 pg High 27.0-32.0 [facility] Comment on above: Performed By: #### L 100.0100, L500.2500 #### [facility] [address] [place], [address] MCHC (RBC) [Mass/Vol] 33.9 g/dL Normal 32-36 [facility] Comment on above: Performed By: #### L 100.0100, L500.2500 #### [facility] [address] [place], [address] MCV (RBC) [Entitic vol] 95.4 fL High 80-94 [facility] Comment on above: Performed By: #### L 100.0100, L500.2500 #### [facility] [address] [place], [address] Monocytes/100 WBC (Bld) 4.3 % Normal 0-10 [facility] Comment on above: Performed By: #### L 100.0100, L500.2500 #### [facility] [address] [place], [address] Neutrophils/100 WBC (Bld) 91.0 % High 47-70 [facility] Comment on above: Performed By: #### L 100.0100, L500.2500 #### [facility] [address] [place], [address] Nucleated RBC (Bld) [#/Vol] 0 10*3/uL Normal 0-5 [facility] Comment on above: Performed By: #### L 100.0100, L500.2500 #### [facility] [address] [place], [address] Platelet mean volume (Bld) [Entitic vol] 11.9 fL Normal 6.2-12.0 [facility] Comment on above: Performed By: #### L 100.0100, L500.2500 #### [facility] [address] [place], [address] Platelets (Bld) [#/Vol] 166 10*3/uL Normal 150-450 [facility] Comment on above: Performed By: #### L 100.0100, L500.2500 #### [facility] [address] [place], [address] RBC (Bld) [#/Vol] 4.55 10*6/uL Low 4.6-6.2 [facility] Comment on above: Performed By: #### L 100.0100, L500.2500 #### [facility] [address] [place], [address] RDW SD 57.2 fl High 35.1-43.9 [facility] Comment on above: Performed By: #### L 100.0100, L500.2500 #### [facility] [address] [place], [address] WBC (Bld) [#/Vol] 11.8 10*3/uL High 4.4-11.0 [facility] Comment on above: Performed By: #### L 100.0100, L500.2500 #### [facility] [address] [place], [address] Gram Stainon 09-10-2024 GS Acceptable Specimen? Yes (<25 Epithelial cells per/lpf) Gram Stain 2+ Gram positive cocci 2+ Gram positive rods 1+ Red Blood Cells 1+ White Blood Cells 1+ Epithelial cells Normal [facility] Comment on above: Performed By: #### M 100.2400, M100.2000 ####[facility] [address] [place], [address] Basic Metabolic Profile (BMP )on 09-09-2024 BUN/CRE 35.1 RATIO High 10-20 [facility] Comment on above: Performed By: #### L 100.0100, L500.2500 #### [facility] [address] [place], [address] CA,Total 8.4 mg/dL Low 8.5-10.1 [facility] Comment on above: Performed By: #### L 100.0100, L500.2500 #### [facility] [address] [place], [address] Chloride [Moles/Vol] 107 mmol/L Normal 98-107 [facility] Comment on above: Performed By: #### L 100.0100, L500.2500 #### [facility] [address] [place], [address] CO2 [Moles/Vol] 24.0 mmol/L Normal 21.0-32.0 [facility] Comment on above: Performed By: #### L 100.0100, L500.2500 #### [facility] [address] [place], [address] Creatinine [Mass/Vol] 0.94 mg/dL Normal 0.70-1.30 [facility] Comment on above: Result Comment: The validity of the calculated GFR GFRAA in patients over 70 years has not been determined. Clinical correlation is essential. Performed By: #### L 100.0100, L500.2500 #### [facility] [address] [place], [address] ECRCL 57.13 ml/min Normal [facility] Comment on above: Performed By: #### L 100.0100, L500.2500 #### [facility] [address] [place], [address] EST GFR - AA 98 mL/min Normal >60 [facility] Comment on above: Result Comment: Afri can [place] GFR Calc Performed By: #### L 100.0100, L500.2500 #### [facility] [address] [place], [address] GAP 8 Normal 5-15 [facility] Comment on above: Performed By: #### L 100.0100, L500.2500 #### [facility] [address] [place], [address] GFR/1.73 sq M.predicted among non-blacks MDRD (S/P/Bld) [Vol rate/Area] 81 mL/min/{1.73_m2} Normal >60 [facility] Comment on above: Result Comment: Non- GFR Calc Performed By: #### L 100.0100, L500.2500 #### [facility] [address] [place], [address] Glucose [Mass/Vol] 146 mg/dL High 74-106 [facility] Comment on above: Result Comment: Fast ing Glucose result greater than or equal to 126 mg/dL suggests DIABETES MELLITUS per A.D.A. criteria. Performed By: #### L 100.0100, L500.2500 #### [facility] [address] [place], [address] Potassium [Moles/Vol] 3.2 mmol/L Low 3.5-5.1 [facility] Comment on above: Performed By: #### L 100.0100, L500.2500 #### [facility] [address] [place], [address] Sodium [Moles/Vol] 139 mmol/L Normal 136-145 [facility] Comment on above: Performed By: #### L 100.0100, L500.2500 #### [facility] [address] [place], [address] Urea nitrogen [Mass/Vol] 33 mg/dL High 7-18 [facility] Comment on above: Performed By: #### L 100.0100, L500.2500 #### [facility] [address] [place], [address] CBC W/Diff, Automatedon 08-30 Absolute Lymph 0.57 X10 3/uL Low 0.83-4.51 [facility] Comment on above: Performed By: #### L 100.0100, L500.2500 #### [facility] [address] [place], [address] Absolute Neut 15.4 X10 3/uL High 2.0-7.7 [facility] Comment on above: Performed By: #### L 100.0100, L500.2500 #### [facility] [address] [place], [address] Basophils/100 WBC (Bld) 0.1 % Normal 0-1 [facility] Comment on above: Performed By: #### L 100.0100, L500.2500 #### [facility] [address] [place], [address] Eosinophils/100 WBC (Bld) 0.0 % Normal 0-5 [facility] Comment on above: Performed By: #### L 100.0100, L500.2500 #### [facility] [address] [place], [address] Erythrocyte distribution width (RBC) [Ratio] 16.6 % High 11.6-14.6 [facility] Comment on above: Performed By: #### L 100.0100, L500.2500 #### [facility] [address] [place], [address] Hematocrit (Bld) [Volume fraction] 43.3 % Normal 40-54 [facility] Comment on above: Performed By: #### L 100.0100, L500.2500 #### [facility] [address] [place], [address] Hemoglobin (Bld) [Mass/Vol] 14.4 g/dL Normal 13.0-16.5 [facility] Comment on above: Performed By: #### L 100.0100, L500.2500 #### [facility] [address] [place], [address] IG% 0.700 Normal 0.0-0.9 [facility] Comment on above: Result Comment: IG% - Immature Granulocytes (promyelocytes, myelocytes and metamyelocytes) > 1% indicates that a LEFT SHIFT is Present. Performed By: #### L 100.0100, L500.2500 #### [facility] [address] [place], [address] Lymphocytes/100 WBC (Bld) 3.3 % Low 19-41 [facility] Comment on above: Performed By: #### L 100.0100, L500.2500 #### [facility] [address] [place], [address] MCH (RBC) [Entitic mass] 31.4 pg Normal 27.0-32.0 [facility] Comment on above: Performed By: #### L 100.0100, L500.2500 #### [facility] [address] [place], [address] MCHC (RBC) [Mass/Vol] 33.3 g/dL Normal 32-36 [facility] Comment on above: Performed By: #### L 100.0100, L500.2500 #### [facility] [address] [place], [address] MCV (RBC) [Entitic vol] 94.5 fL High 80-94 [facility] Comment on above: Performed By: #### L 100.0100, L500.2500 #### [facility] [address] [place], [address] Monocytes/100 WBC (Bld) 7.2 % Normal 0-10 [facility] Comment on above: Performed By: #### L 100.0100, L500.2500 #### [facility] [address] [place], [address] Neutrophils/100 WBC (Bld) 88.7 % High 47-70 [facility] Comment on above: Performed By: #### L 100.0100, L500.2500 #### [facility] [address] [place], [address] Nucleated RBC (Bld) [#/Vol] 0 10*3/uL Normal 0-5 [facility] Comment on above: Performed By: #### L 100.0100, L500.2500 #### [facility] [address] [place], [address] Platelet mean volume (Bld) [Entitic vol] 11.4 fL Normal 6.2-12.0 [facility] Comment on above: Performed By: #### L 100.0100, L500.2500 #### [facility] [address] [place], [address] Platelets (Bld) [#/Vol] 178 10*3/uL Normal 150-450 [facility] Comment on above: Performed By: #### L 100.0100, L500.2500 #### [facility] [address] [place], [address] RBC (Bld) [#/Vol] 4.58 10*6/uL Low 4.6-6.2 [facility] Comment on above: Performed By: #### L 100.0100, L500.2500 #### [facility] [address] [place], [address] RDW SD 56.1 fl High 35.1-43.9 [facility] Comment on above: Performed By: #### L 100.0100, L500.2500 #### [facility] [address] [place], [address] WBC (Bld) [#/Vol] 17.4 10*3/uL High 4.4-11.0 [facility] Comment on above: Performed By: #### L 100.0100, L500.2500 #### [facility] [address] [place], [address] [facility] Telephone ([facility]) CLARK LYLES ([id number]) 1935 M Date Time Provider Department 09/09/24 BRIGITTE SEGAL [facility] During your visit today, we recorded the following information about you: Brigitte eSgal APRN.JANET 09/09/2024 10:05 AM Signed Patient was admitted to [facility] on September 07 to 2024 for altered [...] Date Reviewed: 03/27/2024 Reviewed by: Brigitte Segal APRN.ADMIN ASSISTANT - Fully Assessed Prescriptions as of 09/09/2024 [...] Meds Comments as of 04/18/2021: Taking Saw Victor. Problem List As Of Date 09/09/2024 Noted Resolved BENIGN HYPERTENSION [I10] 01/08/2006 Anxiety state [F41.1] 01/05/2009 GERD (gastroesophageal reflux disease) [K21.9] 01/10/2011 BPH (benign prostatic hyperplasia) [N40.0] 03/17/2013 PAD (peripheral artery disease) ([facility]) [I73.9] 02/28/2014 Hyperlipidemia LDL goal <100 [E78.5] 03/28/2016 Hyperbilirubinemia [E80.6] 05/10/2016 Parkinson's disease ([facility]) [G20.A1] 07/11/2017 Angina pectoris ([facility]CC) [I20.9] 08/25/2019 Restless legs syndrome [G25.81] 01/27/2020 Iron deficiency anemia due to chronic blood los*01/27/2020 Coronary artery disease involving ekwok rabago*12/22/2020 S/P primary angioplasty with coronary stent [Z9*12/22/2020 Fall from standing [W19.XXXA] 09/20/2021 Encounter for support and coordination of trans*08/11/2023 Acute respiratory failure with hypoxia (HCC) [J*09/25/2023 Encounter Status:Closed by BRIGITTE SEGAL on 09/09/24 Normal [facility] Gram stainOrdered By: Lester stein on 09-09-2024 Microscopic observation Gram stain Nom (Unsp spec) [facility] Legionella Antigen Urineon 0 09-09-2024 LEGU URINE, CLEAN CATCH Legionella Antigen result interpretation: L pneumo Ag Ur Ql Negative Presumptive negative for Legionella pneumophila serogroup 1 antigen in urine, suggesting no recent or current infection. Legionella Ag, Urine Negative (See interpretation below) Normal [facility] Comment on above: Performed By: #### L 100.0100, L500.2500 #### [facility] [address] [place], [address] Microbial respiratory cultur eOrdered By: Lester Perdomo on 09-09-2024 Microorganism identified Cx Nom (Unsp spec) [facility] Strep pneumoniae Antig(UR,CS F)on 09-09-2024 STPAG URINE INTERPRETATION Strep pneumoniae Antig(UR,CSF) Negative Urine Presumptive negative for pneumococcal pneumonia, suggesting no current or recent pneumococcal infection. Infection due to S pneumoniae cannot be ruled out since the antigen present in the sample may be below the detection limit of the test. Strep pneumo Test Negative URINE (See interpretation below) Normal [facility] Comment on above: Performed By: #### L 100.0100, L500.2500 #### [facility] [address] [place], [address] Urine Legionella pneumophila antigen detectionOrdered By: eLster Perdomo on 09-09-2024 L. pneumophila Ag Ql (U) [facility] Abdomen Single Viewon 2024 Abdomen Single View [facility] Imaging Services [address] [place] [address] Abdomen Single View MR#: [id number] Acct: [id number] Name: CLARK LYLES Rep #: [id number] : 1935 M 88 [facility] PCP: Brigitte Segal, SUPPLY CHAIN ANALYST Status: ADM IN Study: Abdomen Single View Date of Exam: 09/08/24 Exam# [id number] Ordering Dr: Lester Perdomo DO PROCEDURE: ABDOMEN [...] right inferior pubic ramus bone. Reading [facility] Brigitte Segal; Dr. Lester Perdomo DO Vp Purchasing: Signed Normal [facility] Basic Metabolic Profile (BMP )on 09-08-2024 BUN/CRE 33.0 RATIO High 10-20 [facility] Comment on above: Performed By: #### L 500.2500, L501.5200, L100.0100, L501.2300 ####[facility] [address] [place], [address] CA,Total 8.6 mg/dL Normal 8.5-10.1 [facility] Comment on above: Performed By: #### L 500.2500, L501.5200, L100.0100, L501.2300 ####[facility] [address] [place], [address] Chloride [Moles/Vol] 106 mmol/L Normal 98-107 [facility] Comment on above: Performed By: #### L 500.2500, L501.5200, L100.0100, L501.2300 ####[facility] [address] [place], [address] CO2 [Moles/Vol] 22.0 mmol/L Normal 21.0-32.0 [facility] Comment on above: Performed By: #### L 500.2500, L501.5200, L100.0100, L501.2300 ####[facility] [address] [place], [address] Creatinine [Mass/Vol] 0.82 mg/dL Normal 0.70-1.30 [facility] Comment on above: Result Comment: The validity of the calculated GFR GFRAA in patients over 70 years has not been determined. Clinical correlation is essential. Performed By: #### L 500.2500, L501.5200, L100.0100, L501.2300 ####[facility] [address] [place], [address] ECRCL 66.59 ml/min Normal [facility] Comment on above: Performed By: #### L 500.2500, L501.5200, L100.0100, L501.2300 ####[facility] [address] [place], [address] EST GFR - AA 115 mL/min Normal >60 [facility] Comment on above: Result Comment: Afri can Zimbabwean GFR Calc Performed By: #### L 500.2500, L501.5200, L100.0100, L501.2300 ####[facility] [address] [place], [address] GAP 11 Normal 5-15 [facility] Comment on above: Performed By: #### L 500.2500, L501.5200, L100.0100, L501.2300 ####[facility] [address] [place], [address] GFR/1.73 sq M.predicted among non-blacks MDRD (S/P/Bld) [Vol rate/Area] 95 mL/min/{1.73_m2} Normal >60 [facility] Comment on above: Result Comment: Non- GFR Calc Performed By: #### L 500.2500, L501.5200, L100.0100, L501.2300 ####[facility] [address] [place], [address] Glucose [Mass/Vol] 150 mg/dL High 74-106 [facility] Comment on above: Result Comment: Fast ing Glucose result greater than or equal to 126 mg/dL suggests DIABETES MELLITUS per A.D.A. criteria. Performed By: #### L 500.2500, L501.5200, L100.0100, L501.2300 ####[facility] [address] [place], [address] Potassium [Moles/Vol] 3.2 mmol/L Low 3.5-5.1 [facility] Comment on above: Performed By: #### L 500.2500, L501.5200, L100.0100, L501.2300 ####[facility] [address] [place], [address] Sodium [Moles/Vol] 138 mmol/L Normal 136-145 [facility] Comment on above: Performed By: #### L 500.2500, L501.5200, L100.0100, L501.2300 ####[facility] [address] [place], [address] Urea nitrogen [Mass/Vol] 27 mg/dL High 7-18 [facility] Comment on above: Performed By: #### L 500.2500, L501.5200, L100.0100, L501.2300 ####[facility] [address] [place], [address] CBC W/Diff, Automatedon 02-1 0-2024 Absolute Lymph 0.32 X10 3/uL Low 0.83-4.51 [facility] Comment on above: Performed By: #### L 500.2500, L501.5200, L100.0100, L501.2300 #### [facility] [address] [place], [address] Absolute Neut 7.4 X10 3/uL Normal 2.0-7.7 [facility] Comment on above: Performed By: #### L 500.2500, L501.5200, L100.0100, L501.2300 #### [facility] [address] [place], [address] Basophils/100 WBC (Bld) 0.1 % Normal 0-1 [facility] Comment on above: Performed By: #### L 500.2500, L501.5200, L100.0100, L501.2300 #### [facility] [address] [place], [address] Eosinophils/100 WBC (Bld) 0.0 % Normal 0-5 [facility] Comment on above: Performed By: #### L 500.2500, L501.5200, L100.0100, L501.2300 #### [facility] [address] [place], [address] Erythrocyte distribution width (RBC) [Ratio] 16.0 % High 11.6-14.6 [facility] Comment on above: Performed By: #### L 500.2500, L501.5200, L100.0100, L501.2300 #### [facility] [address] [place], [address] Hematocrit (Bld) [Volume fraction] 42.9 % Normal 40-54 [facility] Comment on above: Performed By: #### L 500.2500, L501.5200, L100.0100, L501.2300 #### [facility] [address] [place], [address] Hemoglobin (Bld) [Mass/Vol] 15.4 g/dL Normal 13.0-16.5 [facility] Comment on above: Performed By: #### L 500.2500, L501.5200, L100.0100, L501.2300 #### [facility] [address] [place], [address] IG% 0.800 Normal 0.0-0.9 [facility] Comment on above: Result Comment: IG% - Immature Granulocytes (promyelocytes, myelocytes and metamyelocytes) > 1% indicates that a LEFT SHIFT is Present. Performed By: #### L 500.2500, L501.5200, L100.0100, L501.2300 #### [facility] [address] [place], [address] Lymphocytes/100 WBC (Bld) 4.1 % Low 19-41 [facility] Comment on above: Performed By: #### L 500.2500, L501.5200, L100.0100, L501.2300 #### [facility] [address] [place], [address] MCH (RBC) [Entitic mass] 33.1 pg High 27.0-32.0 [facility] Comment on above: Performed By: #### L 500.2500, L501.5200, L100.0100, L501.2300 #### [facility] [address] [place], [address] MCHC (RBC) [Mass/Vol] 35.9 g/dL Normal 32-36 [facility] Comment on above: Performed By: #### L 500.2500, L501.5200, L100.0100, L501.2300 #### [facility] [address] [place], [address] MCV (RBC) [Entitic vol] 92.3 fL Normal 80-94 [facility] Comment on above: Performed By: #### L 500.2500, L501.5200, L100.0100, L501.2300 #### [facility] [address] [place], [address] Monocytes/100 WBC (Bld) 2.0 % Normal 0-10 [facility] Comment on above: Performed By: #### L 500.2500, L501.5200, L100.0100, L501.2300 #### [facility] [address] [place], [address] Neutrophils/100 WBC (Bld) 93.0 % High 47-70 [facility] Comment on above: Performed By: #### L 500.2500, L501.5200, L100.0100, L501.2300 #### [facility] [address] [place], [address] Nucleated RBC (Bld) [#/Vol] 0 10*3/uL Normal 0-5 [facility] Comment on above: Performed By: #### L 500.2500, L501.5200, L100.0100, L501.2300 #### [facility] [address] [place], [address] Platelet mean volume (Bld) [Entitic vol] 11.6 fL Normal 6.2-12.0 [facility] Comment on above: Performed By: #### L 500.2500, L501.5200, L100.0100, L501.2300 #### [facility] [address] [place], [address] Platelets (Bld) [#/Vol] 183 10*3/uL Normal 150-450 [facility] Comment on above: Performed By: #### L 500.2500, L501.5200, L100.0100, L501.2300 #### [facility] [address] [place], [address] RBC (Bld) [#/Vol] 4.65 10*6/uL Normal 4.6-6.2 [facility] Comment on above: Performed By: #### L 500.2500, L501.5200, L100.0100, L501.2300 #### [facility] [address] [place], [address] RDW SD 52.6 fl High 35.1-43.9 [facility] Comment on above: Performed By: #### L 500.2500, L501.5200, L100.0100, L501.2300 #### [facility] [address] [place], [address] WBC (Bld) [#/Vol] 7.9 10*3/uL Normal 4.4-11.0 [facility] Comment on above: Performed By: #### L 500.2500, L501.5200, L100.0100, L501.2300 #### [facility] [address] [place], [address] CTA Chest W/WO Contraston CTA Chest W/WO Contrast Imaging Services [address] [place] [address] CTA Chest W/WO Contrast MR#: [id number] Acct: [id number] Name: CLARK LYLES Rep #: [id number] : 1935 M 88 From: Jose araujo MD PCP: Brigitte Segal, SUPPLY CHAIN ANALYST Status: ADM IN Study: CTA Chest W/WO Contrast Date of Exam: 09/08/24 Exam# [id number] Ordering Dr: Lester Perdomo DO PROCEDURE: CTA [...] use of iterative reconstruction technique). Reading Location: [place] [address] CC: SUPPLY CHAIN ANALYST Brigitte Segal; Dr. Lester Perdomo DO Vp Purchasing: Signed Normal [facility] Echo, Limited Studyon 2024 Echo, Limited Study [facility] [address] [place] [address] Echo, Limited Study 09/08/24 1446 MR#: [id number] Acct: [id number] Name: CLARK LYLES Rep #: [id number] : 1935 88 From: Dejuan Brooks MD Attending Dr: Dr. Lester Perdomo DO Status: ADM IN Ordering Dr: Lester Perdomo DO Date: 09/08/24 Location: [facility] Sex: M C Admitted: 09/07/24 Reason [...] Dictated: 09/08/24 1446 Date Transcribed: 09/09/24 0834 Vp Purchasing: Signed Normal [facility] Magnesiumon 09-08-2024 Magnesium [Mass/Vol] 1.8 mg/dL Normal 1.6-2.6 [facility] Comment on above: Performed By: #### L 500.2500, L501.5200, L100.0100, L501.2300 ####[facility] [address] [place], [address] Magnesium measurementOrdered By: Jerrell Faith on 09-08-2024 Magnesium [Mass/Vol] 1.8 mg/dL 1.6-2.6 [facility] Phosphoruson 09-08-2024 Phosphate [Mass/Vol] 3.9 mg/dL Normal 2.5-4.9 [facility] Comment on above: Performed By: #### L 500.2500, L501.5200, L100.0100, L501.2300 ####[facility] [address] [facility] [place], [address] 12 Lead EKGon 09-07-2024 12 Lead EKG [facility] Cardiovascular Services [address] [place] [address] 12 Lead EKG 09/07/24 1105 MR#: [id number] Acct: [id number] Name: CLARK LYLES Rep #: [id number] : 1935 88 From: Dejuan Brooks MD Attending Dr: Dr. Lester Perdomo DO Status: ADM IN Ordering Dr: Neo Tejeda DO Date: 09/07/24 Location: [facility] Sex: M C Admitted: 09/07/24 Test [...] normal ECG Confirmed by DEJUAN BROOKS MD ([id number]), medical transcription editor FARSHAD PANDYA ([id number]) on 09/08/2024 11:07:09 AM Referred By: Confirmed By: DEJUAN BROOKS MD 09/08/24 1107 Date Dejuan Brooks MD CC: MARIANA Segal; Dr. Lester Perdomo DO; Dr. Neo Tejeda DO Signed Normal [facility] Activated partial thrombopla stin time (aPTT) in platelet poor plasma by coagulation aOrdered By: Neo Tejeda on 09-07-2024 aPTT Coag (PPP) [Time] 26.5 s 24.1-36.2 [facility] Assessment of wrist artery p atency prior to arterial punctureOrdered By: Neo Tejeda on 09-07-2024 Arterial patency Wrist artery --pre arterial puncture Positive [facility] BNP (brain natriuretic pepti de measurement)Ordered By: Neo Tejeda on 09-07-2024 Natriuretic peptide B (Bld) [Mass/Vol] 221.1 pg/mL High 0-100 [facility] BNP,B-Type NATRIURETIC PEPTI Giovanni 09-07-2024 Natriuretic peptide B (Bld) [Mass/Vol] 221.1 pg/mL High 0-100 [facility] Comment on above: Performed By: #### L 503.6620 ####[facility] [address] [place], [place], [address] Basic Metabolic Profile (BMP )on 09-07-2024 BUN/CRE 19.2 RATIO Normal 10-20 [facility] Comment on above: Order Comment: 'TROP ' Serial specimen #1, #2 or #3: 1 Performed By: #### L 500.2500, L501.4020, L100.0100, L300.3900, L300.4310 ####[facility] [address] [place], [address] CA,Total 8.7 mg/dL Normal 8.5-10.1 [facility] Comment on above: Order Comment: 'TROP ' Serial specimen #1, #2 or #3: 1 Performed By: #### L 500.2500, L501.4020, L100.0100, L300.3900, L300.4310 ####[facility] [address] [place], [address] Chloride [Moles/Vol] 104 mmol/L Normal 98-107 [facility] Comment on above: Order Comment: 'TROP ' Serial specimen #1, #2 or #3: 1 Performed By: #### L 500.2500, L501.4020, L100.0100, L300.3900, L300.4310 ####[facility] [address] [place], [address] CO2 [Moles/Vol] 18.0 mmol/L Low 21.0-32.0 [facility] Comment on above: Order Comment: 'TROP ' Serial specimen #1, #2 or #3: 1 Performed By: #### L 500.2500, L501.4020, L100.0100, L300.3900, L300.4310 ####[facility] [address] [place], [address] Creatinine [Mass/Vol] 1.04 mg/dL Normal 0.70-1.30 [facility] Comment on above: Order Comment: 'TROP ' Serial specimen #1, #2 or #3: 1 Result Comment: The validity of the calculated GFR GFRAA in patients over 70 years has not been determined. Clinical correlation is essential. Performed By: #### L 500.2500, L501.4020, L100.0100, L300.3900, L300.4310 ####[facility] [address] [place], [address] ECRCL 49.04 ml/min Normal [facility] Comment on above: Order Comment: 'TROP ' Serial specimen #1, #2 or #3: 1 Performed By: #### L 500.2500, L501.4020, L100.0100, L300.3900, L300.4310 ####[facility] [address] [place], [address] EST GFR - AA 87 mL/min Normal >60 [facility] Comment on above: Order Comment: 'TROP ' Serial specimen #1, #2 or #3: 1 Result Comment: Afri can [place]an GFR Calc Performed By: #### L 500.2500, L501.4020, L100.0100, L300.3900, L300.4310 ####[facility] [address] [place], [address] GAP 16 High 5-15 [facility] Comment on above: Order Comment: 'TROP ' Serial specimen #1, #2 or #3: 1 Performed By: #### L 500.2500, L501.4020, L100.0100, L300.3900, L300.4310 ####[facility] [address] [place], [address] GFR/1.73 sq M.predicted among non-blacks MDRD (S/P/Bld) [Vol rate/Area] 72 mL/min/{1.73_m2} Normal >60 [facility] Comment on above: Order Comment: 'TROP ' Serial specimen #1, #2 or #3: 1 Result Comment: Non- GFR Calc Performed By: #### L 500.2500, L501.4020, L100.0100, L300.3900, L300.4310 ####[facility] [address] [place], [address] Glucose [Mass/Vol] 77 mg/dL Normal 74-106 [facility] Comment on above: Order Comment: 'TROP ' Serial specimen #1, #2 or #3: 1 Performed By: #### L 500.2500, L501.4020, L100.0100, L300.3900, L300.4310 ####[facility] [address] [place], [address] Potassium [Moles/Vol] 3.3 mmol/L Low 3.5-5.1 [facility] Comment on above: Order Comment: 'TROP ' Serial specimen #1, #2 or #3: 1 Performed By: #### L 500.2500, L501.4020, L100.0100, L300.3900, L300.4310 ####[facility] [address] [place], [address] Sodium [Moles/Vol] 138 mmol/L Normal 136-145 [facility] Comment on above: Order Comment: 'TROP ' Serial specimen #1, #2 or #3: 1 Performed By: #### L 500.2500, L501.4020, L100.0100, L300.3900, L300.4310 ####[facility] [address] [place], [address] Urea nitrogen [Mass/Vol] 20 mg/dL High 7-18 [facility] Comment on above: Order Comment: 'TROP ' Serial specimen #1, #2 or #3: 1 Performed By: #### L 500.2500, L501.4020, L100.0100, L300.3900, L300.4310 ####[facility] [address] [place], [address] Bilirubin Test strip Ql (U)O rdered By: Neo Tejeda on 09-07-2024 Bilirubin Ql (U) Negative Negative [facility] Blood Gases by CPSon 025 MAGUI TEST Positive Normal [facility] Comment on above: Performed By: #### L 100.0100, L500.2500 #### [facility] [address] [place], [address] Base excess Calc (Bld) [Moles/Vol] -8 mmol/L Low -2 to +2 [facility] Comment on above: Performed By: #### L 100.0100, L500.2500 #### [facility] [address] [place], [address] Blood Gas Type ART [facility] Comment on above: Performed By: #### L 100.0100, L500.2500 #### [facility] [address] [place], [address] CO2 [Moles/Vol] 18 mmol/L [facility] Comment on above: Performed By: #### L 100.0100, L500.2500 #### [facility] [address] [place], [address] Comment AIRVO 60L [facility] Comment on above: Performed By: #### L 100.0100, L500.2500 #### [facility] [address] [place], [address] FI02 50.0 [facility] Comment on above: Performed By: #### L 100.0100, L500.2500 #### [facility] [address] [place], [address] HCO3 (Bld) [Moles/Vol] 17.0 mmol/L Low 22-26 [facility] Comment on above: Performed By: #### L 100.0100, L500.2500 #### [facility] [address] [place], [address] Mode Not entered [facility] Comment on above: Performed By: #### L 100.0100, L500.2500 #### [facility] [address] [place], [address] O2 Delivery Dev HFNC [facility] Comment on above: Performed By: #### L 100.0100, L500.2500 #### [facility] [address] [place], [address] pCO2 28.6 mmHg Low 35-45 [facility] Comment on above: Performed By: #### L 100.0100, L500.2500 #### [facility] [address] [place], [address] pH (Bld) 7.38 [pH] Normal 7.35-7.45 [facility] Comment on above: Performed By: #### L 100.0100, L500.2500 #### [facility] [address] [place], [address] PO2 102 mmHG High 75-100 [facility] Comment on above: Performed By: #### L 100.0100, L500.2500 #### [facility] [address] [place], [address] SITE R Radial Normal [facility] Comment on above: Performed By: #### L 100.0100, L500.2500 #### [facility] [address] [place], [address] SO2 98 Normal 95-99 [facility] Comment on above: Performed By: #### L 100.0100, L500.2500 #### [facility] [address] [place], [address] Blood base excess determinat ionOrdered By: Neo Tejeda on 09-07-2024 Base excess Calc (BldV) [Moles/Vol] -8 mmol/L Low -2-2 [facility] Blood bicarbonate measuremen tOrdered By: Neo Tejeda on 09-07-2024 HCO3 (Bld) [Moles/Vol] 17.0 mmol/L Low 22-26 [facility] CBC W/Diff, Automatedon Absolute Lymph 0.74 X10 3/uL Low 0.83-4.51 [facility] Comment on above: Performed By: #### L 500.2500, L501.4020, L100.0100, L300.3900, L300.4310 ####[facility] [address] [place], [address] Absolute Neut 10.8 X10 3/uL High 2.0-7.7 [facility] Comment on above: Performed By: #### L 500.2500, L501.4020, L100.0100, L300.3900, L300.4310 ####[facility] [address] [place], [address] Basophils/100 WBC (Bld) 0.3 % Normal 0-1 [facility] Comment on above: Performed By: #### L 500.2500, L501.4020, L100.0100, L300.3900, L300.4310 ####[facility] [address] [place], [address] Eosinophils/100 WBC (Bld) 0.1 % Normal 0-5 [facility] Comment on above: Performed By: #### L 500.2500, L501.4020, L100.0100, L300.3900, L300.4310 ####[facility] [address] [place], [address] Erythrocyte distribution width (RBC) [Ratio] 16.4 % High 11.6-14.6 [facility] Comment on above: Performed By: #### L 500.2500, L501.4020, L100.0100, L300.3900, L300.4310 ####[facility] [address] [place], [address] Hematocrit (Bld) [Volume fraction] 46.6 % Normal 40-54 [facility] Comment on above: Performed By: #### L 500.2500, L501.4020, L100.0100, L300.3900, L300.4310 ####[facility] [address] [place], [address] Hemoglobin (Bld) [Mass/Vol] 15.8 g/dL Normal 13.0-16.5 [facility] Comment on above: Performed By: #### L 500.2500, L501.4020, L100.0100, L300.3900, L300.4310 ####[facility] [address] [place], [address] IG% 1.200 High 0.0-0.9 [facility] Comment on above: Result Comment: IG% - Immature Granulocytes (promyelocytes, myelocytes and metamyelocytes) > 1% indicates that a LEFT SHIFT is Present. Performed By: #### L 500.2500, L501.4020, L100.0100, L300.3900, L300.4310 ####[facility] [facility] [address] [place], [address] Lymphocytes/100 WBC (Bld) 5.8 % Low 19-41 [facility] Comment on above: Performed By: #### L 500.2500, L501.4020, L100.0100, L300.3900, L300.4310 ####[facility] [address] [place], [address] MCH (RBC) [Entitic mass] 31.5 pg Normal 27.0-32.0 [facility] Comment on above: Performed By: #### L 500.2500, L501.4020, L100.0100, L300.3900, L300.4310 ####[facility] [address] [place], [address] MCHC (RBC) [Mass/Vol] 33.9 g/dL Normal 32-36 [facility] Comment on above: Performed By: #### L 500.2500, L501.4020, L100.0100, L300.3900, L300.4310 ####[facility] [address] [place], [address] MCV (RBC) [Entitic vol] 93.0 fL Normal 80-94 [facility] Comment on above: Performed By: #### L 500.2500, L501.4020, L100.0100, L300.3900, L300.4310 ####[facility] [address] [place], [address] Monocytes/100 WBC (Bld) 7.4 % Normal 0-10 [facility] Comment on above: Performed By: #### L 500.2500, L501.4020, L100.0100, L300.3900, L300.4310 ####[facility] [address] [place], [address] Neutrophils/100 WBC (Bld) 85.2 % High 47-70 [facility] Comment on above: Performed By: #### L 500.2500, L501.4020, L100.0100, L300.3900, L300.4310 ####[facility] [address] [place], [address] Nucleated RBC (Bld) [#/Vol] 0 10*3/uL Normal 0-5 [facility] Comment on above: Performed By: #### L 500.2500, L501.4020, L100.0100, L300.3900, L300.4310 ####[facility] [address] [place], [address] Platelet mean volume (Bld) [Entitic vol] 11.0 fL Normal 6.2-12.0 [facility] Comment on above: Performed By: #### L 500.2500, L501.4020, L100.0100, L300.3900, L300.4310 ####[facility] [address] [place], [address] Platelets (Bld) [#/Vol] 195 10*3/uL Normal 150-450 [facility] Comment on above: Performed By: #### L 500.2500, L501.4020, L100.0100, L300.3900, L300.4310 ####[facility] [address] [place], [address] RBC (Bld) [#/Vol] 5.01 10*6/uL Normal 4.6-6.2 [facility] Comment on above: Performed By: #### L 500.2500, L501.4020, L100.0100, L300.3900, L300.4310 ####[facility] [address] [place], [address] RDW SD 53.0 fl High 35.1-43.9 [facility] Comment on above: Performed By: #### L 500.2500, L501.4020, L100.0100, L300.3900, L300.4310 ####[facility] [address] [place], [address] WBC (Bld) [#/Vol] 12.7 10*3/uL High 4.4-11.0 [facility] Comment on above: Performed By: #### L 500.2500, L501.4020, L100.0100, L300.3900, L300.4310 ####[facility] [address] [place], [address] CTA Head AND Neck W/ Contras ton 09-07-2024 CTA Head AND Neck W/ Contrast [facility] [address] [place] [address] CTA Head AND Neck W/ Contrast MR#: [id number] Acct: [id number] Name: CLARK LYLES Rep #: [id number] : 1935 M 88 From: Axel Marie MD PCP: Brigitte Segal, SUPPLY CHAIN ANALYST Status: REG ER Study: CTA Head AND Neck W/ Contrast Date of Exam: Exam# [id number] Ordering Dr: Neo Tejeda DO PROCEDURE: CTA [...] use of iterative reconstruction technique). Reading Location: [facility] CC: MARIANA Segal; Dr. Neo Tejeda DO Vp Purchasing: Signed Normal [facility] Calcium oxalate crystals det ection in urine sediment by light microscopyOrdered By: eNo Tejeda on 09-07-2024 Calcium oxalate crystals LM Ql (Urine sed) 1+ /hpf [facility] Chest 1 Viewon 09-07-2024 Chest 1 View [facility] Imaging Services [address] [place], [place] [address] Chest 1 View MR#: [id number] Acct: [id number] Name: LYLESCLARK LAMA Rep #: [id number] : 1935 M 88 From: Axel Marie MD PCP: MARIANA Humphreys Status: REG ER Study: Chest 1 View Date of Exam: 09/07/24 Exam# [id number] Ordering Dr: Neo Tejeda DO PROCEDURE: CHEST 1 VIEW REASON FOR EXAM: Cough TECHNIQUE: Frontal view of the chest. COMPARISON: Reviewed. FINDINGS: The cardiac and mediastinal contours are normal. The lungs are clear. RAD/Chest 1 View IMPRESSION: No acute radiographic process. Reading Location: [facility] CC: SUPPLY CHAIN ANALYST Brigitte Segal; Dr. Neo Tejeda DO Vp Purchasing: Signed Normal [facility] D-Dimer Quantitative (DVT/PE )on 09-07-2024 D-DIMER QUANT 1.63 FEU/ug/m Invalid Interpretation Code 0.27-0.49 [facility] Comment on above: Result Comment: D-Di marv ELEVATED (>0.49): Additional studies and clinical assessments are indicated to conclude diagnosis of: Deep Vein Thrombosis (DVT) or Pulmonary Embolism (PE) CRITICAL VALUE CALLED TO NIKOLAS HILL 09/07/24 1307 Robyn Lizarraga. RESULTS READ BACK BY SAME. Performed By: #### L 100.0100, L500.2500 #### [facility] Laboratory [address] [facility] [place], [address] Elbow min 3 Viewson 09-07-19 25 Elbow min 3 Views [facility] Imaging Services [address] [place] [address] Elbow min 3 Views MR#: [id number] Acct: [id number] Name: CLARK LYLES Rep #: [id number] : 1935 M 88 From: Axel Marie MD PCP: MARIANA Humphreys Status: REG ER Study: Elbow min 3 Views Date of Exam: 09/07/24 Exam# [id number] Ordering Dr: Neo Tejeda DO PROCEDURE: ELBOW [...] No other acute radiographic process. Reading Location: [facility] CC: MARIANA Segal; Dr. Neo Tejeda DO Vp Purchasing: Signed Normal [facility] Elbow min 3 Views [facility] Imaging Services [address] [place] [address] Elbow min 3 Views MR#: [id number] Acct: [id number] Name: CLARK LYLES Rep #: [id number] : 1935 M 88 From: Axel Marie MD PCP: MARIANA Humphreys Status: REG ER Study: Elbow min 3 Views Date of Exam: 09/07/24 Exam# [id number] Ordering Dr: Neo Tejeda DO PROCEDURE: ELBOW [...] No other acute radiographic process. [facility] CC: MARIANA Segal; Dr. Neo Tejeda DO Vp Purchasing: Signed Normal [facility] Emergency Department Summary on 09-07-2024 Emergency Department Summary [facility] Medical Records Department [address] [place] [address] Emergency Department Summary 09/07/24 MR#: [id number] Acct: [id number] Name: CLARK LYLES Rep #: [id number] : 1935 88 From: Neo Tejeda DO PCP: Brigitte Segal, SUPPLY CHAIN ANALYST Status:ADM IN Location: [place] [address] HPI History of Present Illness Chief Complaint: Stroke Alert [facility] Medical History (Updated 09/07/24 @ 13:[address] Jerrell Faith MD) COVID-19 virus detected (08/23/20) Anxiety and depression Chronic anemia Acute respiratory failure with hypoxia Hypoxia Pneumonia due to COVID-19 virus GI bleed (12/2019) Atherosclerosis of coronary artery of [place] heart without angina pectoris Peripheral vascular occlusive [...] was fo (more content not included)... Normal [facility] H AND P Exam - Hospitaliston 09-07-2024 H&P Exam - Hospitalist [facility] Medical Records Department [address] [place] [address] H P Exam - Hospitalist 09/07/24 1317 MR#: [id number] Acct: [id number] Name: CLARK LYLES Rep #: [id number] : 1935 88 From: Jerrell Faith MD PCP: Brigitte Segal, SUPPLY CHAIN ANALYST Status:ADM IN Location: [place] [address] HPI - General General Date of Admission: [...] admitted to monitored bed for further management [facility] Medical History (Updated 09/07/24 @ 13:[address] Jerrell Faith MD) COVID-19 virus detected (08/23/20) Anxiety and depression Chronic anemia Acute respiratory failure with hypoxia Hypoxia Pneumonia due to COVID-19 virus GI bleed (12/2019) Atherosclerosis of coronary artery of [place] heart without angina pectoris Peripheral vascular occlusive [...] 10:23 02/ (more content not included)... Normal [facility] Hyaline casts LM.LPF (Urine sed) [#/Area]Ordered By: Noe Tejeda on 09-07-2024 Hyaline casts (Urine sed) [#/Area] 0 /[LPF] 0-5 [facility] Influenza virus A and B and SARS-CoV-2 (COVID-19) and Respiratory syncytial virus RNAOrdered By: Neo Tejeda on 09-07-2024 SARS-CoV-2 (COVID-19) RNA CAMERON+probe Ql (Unsp spec) [facility] International normalized rat io (INR) calculationOrdered By: Neo Tejeda on 09-07-2024 INR Coag (Bld) [Relative time] 1.0 {INR} [facility] Ketones Test strip Ql (U)Ord ered By: Neo Tejeda on 09-07-2024 Ketones Ql (U) 5 mg/dl High Negative [facility] L501.4020on 09-07-2024 TROPONIN-I HS 68 pg/mL Normal 3.0-78.0 [facility] Comment on above: Order Comment: Comme nts: SPECIMEN #3'TROP' Serial specimen #1, #2 or #3: 3 Result Comment: Plea se Note: New Test Units and Gender Specific Reference Ranges. For more information see Policy Stat Procedure [place] High Sensitivity Troponin (TNIH) and attachments. Performed By: #### L 100.0100, L500.2500 #### [facility] Laboratory [address] [place], [address] TROPONIN-I HS 76 pg/mL Normal 3.0-78.0 [facility] Comment on above: Order Comment: Comme nts: SPECIMEN #2'TROP' Serial specimen #1, #2 or #3: 2 Result Comment: Plea se Note: New Test Units and Gender Specific Reference Ranges. For more information see Policy Stat Procedure [place] High Sensitivity Troponin (TNIH) and attachments. Performed By: #### L 100.0100, L500.2500 #### [facility] [address] [place], [address] TROPONIN-I HS 63 pg/mL Normal 3.0-78.0 [facility] Comment on above: Order Comment: 'TROP ' Serial specimen #1, #2 or #3: 1 Result Comment: Plea se Note: New Test Units and Gender Specific Reference Ranges. For more information see Policy Stat Procedure [place] High Sensitivity Troponin (TNIH) and attachments. Performed By: #### L 500.2500, L501.4020, L100.0100, L300.3900, L300.4310 ####[facility] [address] [place], [address] M100.678on 09-07-2024 M100.678 Pending SARS-CoV-2 (COVID 19) Negative INFLUENZA A Negative INFLUENZA B Negative RSV PCR Negative Normal [facility] Comment on above: Performed By: #### L 100.0100, L500.2500 #### [facility] Laboratory [address] [place], [address] Measurement, pHOrdered By: Hugo Tejeda on 09-07-2024 pH (Unsp spec) 7.38 [pH] 7.35-7.45 [facility] Microscopic analysis of urin e for red blood cells (RBC)Ordered By: Neo Tejeda on 09-07-2024 Microscopic analysis of urine for red blood cells (RBC) 0-5 SEEN /hpf 0-5 [facility] Mucus LM Ql (Urine sed)Order ed By: Neo Tejeda on 09-07-2024 Mucus Ql (Urine sed) 1+ /hpf [facility] Nitrite Test strip Ql (U)Ord ered By: Neo Tejeda on 09-07-2024 Nitrite Ql (U) Negative Negative [facility] No Panel InformationOrdered By: Neo Tejeda on 09-07-2024 Blood Gas Clinical Comments AIRVO 60L [facility] Blood Gas Sample Site R Radial [facility] Blood Gas Specimen Type ART [facility] Blood Gas Vent Mode Not entered [facility] Oxygen Delivery Device HFNC [facility] Partial Thromboplast Timeon 09-07-2024 aPTT Coag (Bld) [Time] 26.5 s Normal 24.1-36.2 [facility] Comment on above: Performed By: #### L 500.2500, L501.4020, L100.0100, L300.3900, L300.4310 ####[facility] [address] [place], [place], [address] Protein Test strip Ql (U)Ord ered By: Neo Tejeda on 09-07-2024 Protein Ql (U) 30 mg/dl High Negative [facility] Prothrombin Time w/INRon INR Coag (PPP) [Relative time] 1.0 {INR} Normal [facility] Comment on above: Performed By: #### L 500.2500, L501.4020, L100.0100, L300.3900, L300.4310 ####[facility] [address] [place], [place], [address] PT Coag (PPP) [Time] 13.6 s Normal 11.7-14.9 [facility] Comment on above: Performed By: #### L 500.2500, L501.4020, L100.0100, L300.3900, L300.4310 ####[facility] [address] [place], [address] Prothrombin timeOrdered By: Neo Tejeda on 09-07-2024 PT Coag (PPP) [Time] 13.6 s 11.7-14.9 [facility] RESPIRATORY PANEL MOLECULARo n 09-07-2024 RP PANEL [...] Not Detected RSV B Not Detected Normal [facility] Comment on above: Performed By: #### L 100.0100, L500.2500 #### [facility] Laboratory [address] [place], [address] Respiratory pathogens detect ion panel by molecular detection methodOrdered By: Jerrell Faith on 09-07-2024 Respiratory pathogens DNA and RNA panel CAMERON+probe (Resp) [facility] STROKE Brain/Head without Co nton 09-07-2024 STROKE Brain/Head without Cont [facility] [address] [place], [place] [address] STROKE Brain/Head without Cont MR#: [id number] Acct: [id number] Name: CLARK LYLES Rep #: [id number] : 1935 M 88 From: Axel Marie MD PCP: CHRISTINE Brown Status: REG ER Study: STROKE Brain/Head without Cont Date of Exam: 0 09/07/24 Exam# [id number] Ordering Dr: Neo Tejeda DO EXAM: STROKE [...] the time of this dictation Reading [facility] CC: Dr. Neo Tejeda DO; CHRISTINE Brown Vp Purchasing: Signed Normal [facility] Squamous epithelial cells de tection in urine sediment by light microscopyOrdered By: Neo Tejeda on 09-07-2024 Epithelial cells.squamous LM Ql (Urine sed) 0-5 SEEN /hpf 0-5 [facility] Total carbon dioxide measure mentOrdered By: Neo Tejeda on 09-07-2024 CO2 [Moles/Vol] 18 mmol/L [facility] Troponin IOrdered By: Jerrell Faith on 09-07-2024 Troponin I 68 pg/mL 3.0-78.0 [facility] Comment on above: Please Note: [place] t Units and Gender Specific Reference Ranges. For more information see Policy Stat Procedure [place] High Sensitivity Troponin (TNIH) and attachments. Urinalysis, Completeon 09-07 CA OX CRYSTAL 1+ /hpf Normal [facility] Comment on above: Order Comment: COLLE CTOR TO SPECIFY Performed By: #### L 100.0100, L500.2500 #### [facility] [address] [place], [place], [address] BACTERIA RARE Normal None Seen [facility] Comment on above: Order Comment: COLLE CTOR TO SPECIFY Performed By: #### L 100.0100, L500.2500 #### [facility] [address] [place], [address] CAST,HYALINE 0-5 SEEN Normal 0-5 [facility] Comment on above: Order Comment: COLLE CTOR TO SPECIFY Performed By: #### L 100.0100, L500.2500 #### [facility] [address] [place], [address] EPI,SQUAMOUS 0-5 SEEN Normal 0-5 [facility] Comment on above: Order Comment: COLLE CTOR TO SPECIFY Performed By: #### L 100.0100, L500.2500 #### [facility] [address] [place], [address] Mucus Ql (Urine sed) 1+ /hpf Normal [facility] Comment on above: Order Comment: COLLE CTOR TO SPECIFY Performed By: #### L 100.0100, L500.2500 #### [facility] [address] [place], [address] RBC 0-5 SEEN Normal 0-5 [facility] Comment on above: Order Comment: [facility] CTOR TO SPECIFY Performed By: #### L 100.0100, L500.2500 #### [facility] [address] [place], [address] WBC 0-5 SEEN Normal 0-5 [facility] Comment on above: Order Comment: [facility] CTOR TO SPECIFY Performed By: #### L 100.0100, L500.2500 #### [facility] [address] [place], [address] Urine clarityOrdered By: Ninoska Tejeda on 09-07-2024 Clarity (U) Clear Clear [facility] Urine color determinationOrd ered By: Neo Tejeda on 09-07-2024 Color (U) Yellow Yellow [facility] Urine glucose detectionOrder ed By: Neo Tejeda on 09-07-2024 Glucose Ql (U) Normal mg/dl Normal [facility] Urine leukocyte esterase det ection by dipstickOrdered By: Neo Tejeda on 09-07-2024 Leukocyte esterase Test strip Ql (U) Negative Negative [facility] Urine pHOrdered By: Neo espinalus on 09-07-2024 pH (U) 6.0 [pH] 5.0 - 8.0 [facility] Urine sediment bacteria coun t by microscopy (number/high power field)Ordered By: Neo Tejeda on 09-07-2024 Bacteria LM.HPF (Urine sed) [#/Area] RARE /hpf None Seen [facility] Urine specific gravity measu rementOrdered By: Neo Tejeda on 09-07-2024 Specific gravity (U) [Rel density] 1.010 1.002-1.03 0 [facility] Urine urobilinogen measureme ntOrdered By: Neo Tejeda on 09-07-2024 Urobilinogen Ql (U) Normal mg/dl Normal [facility] White blood cell countOrdere d By: Neo Tejeda on 09-07-2024 White blood cell count 0-5 SEEN /hpf 0-5 [facility] CNOVon 03-27-2024 [facility] CLARK LYLES ([id number]) 1935 M Date Time Provider Department 03/27/24 8:00 AM [facility] During your visit today, we recorded the following information about you: Pulse Respiration Blood pressure Weight 63/minute 16/minute 126/67 68.9 kg Brigitte Segal APRN.ADMIN ASSISTANT 03/27/2024 8:28 AM Addendum This is a [...] lipoma performed by Dr. Robe Mackenzie at [facility] 03-18-14: REVSC OPN/PRQ FEM/POP W/STNT/ANGIOP SM VSL [...] (more content not included)... Normal [facility] 02-26-2024 JANETN Telephone ([place]) CLARK LYLES ([id number]) 1935 M Date Time Provider Department 02/26/24 BRIGITTE SEGAL [facility] [place] During your visit today, we recorded the [...] Date Reviewed: 02/25/2024 Reviewed by: Brigitte Segal APRN.ADMIN ASSISTANT - Fully Assessed Prescriptions as of 02/26/2024 [...] Meds Comments as of 04/18/2021: Taking Saw Victor. Problem List As Of Date 02/26/2024 Noted [...] chronic blood los*01/27/2020 Coronary artery disease involving [place] rabago*12/22/2020 S/P primary angioplasty with coronary stent [Z9*12/22/2020 Fall from standing [W19.XXXA] 09/20/2021 Encounter for support and coordination of trans*08/11/2023 Acute respiratory failure with hypoxia (HCC) [J*09/25/2023 Encounter Status:Closed by SHIRLEY RIVERA on 02/26/24 Normal [facility] Amylase SerPl-cCncon 024 Amylase [Catalytic activity/Vol] 52 U/L Normal 30-104 [facility] Comment on above: Order Comment: Speci men Type: BLOOD SPECIMENOrdering Facility: [facility] Address: [address] [place] [address] Performed By: #### 3 040-3, 1798-8, 58227-1 ####[facility] LABCLIA [id number] [place] [address] [place] CBC W Auto Differential pane l (Bld)on 02-25-2024 Basophils (Bld) [#/Vol] 0.04 10*3/uL Normal <0.11 [facility] Comment on above: Order Comment: Speci men Type: BLOOD SPECIMENOrdering Facility: [facility] Address: [address] [place] [address] Performed By: #### 5 7021-8 ####[facility] LABCLIA [id number] [place] [address] [place] Basophils/100 WBC (Bld) 0.4 % Normal [facility] Comment on above: Order Comment: Speci men Type: BLOOD SPECIMENOrdering Facility: [facility] Address: [address] [place] [address] Performed By: #### 5 7021-8 ####[facility] LABCLIA [id number] [place] [address] [place] Differential cell count method Nom (Bld) Auto Normal [facility] Comment on above: Order Comment: Speci men Type: BLOOD SPECIMENOrdering Facility: [facility] Address: [address] [place] [address] Performed By: #### 5 7021-8 ####[facility] LABCLIA [id number] [place] [address] [place] Eosinophils (Bld) [#/Vol] 0.31 10*3/uL Normal <0.46 [facility] Comment on above: Order Comment: Speci men Type: BLOOD SPECIMENOrdering Facility: [facility] Address: [address] [place] [address] Performed By: #### 5 7021-8 ####[facility] LABCLIA [id number] [place] [address] [place] Eosinophils/100 WBC (Bld) 2.9 % Normal [facility] Comment on above: Order Comment: Speci men Type: BLOOD SPECIMENOrdering Facility: [facility] Address: [address] [place] [address] Performed By: #### 5 7021-8 ####[facility] LABCLIA [id number] [place] [address] [place] Erythrocyte distribution width (RBC) [Ratio] 14.8 % Normal 11.5-15.0 [facility] Comment on above: Order Comment: Speci men Type: BLOOD SPECIMENOrdering Facility: [facility] Address: [address] [place] [address] Performed By: #### 5 7021-8 ####[facility] LABCLIA [id number] [place] [address] [place] Hematocrit (Bld) [Volume fraction] 50.9 % Normal 39.0-51.0 [facility] Comment on above: Order Comment: Speci men Type: BLOOD SPECIMENOrdering Facility: [facility] Address: [address] [place] [address] Performed By: #### 5 7021-8 ####[facility] LABCLIA [id number] [place] [address] [place] Hemoglobin (Bld) [Mass/Vol] 16.4 g/dL Normal 13.0-17.0 [facility] Comment on above: Order Comment: Speci men Type: BLOOD SPECIMENOrdering Facility: [facility] Address: [address] [place] [address] Performed By: #### 5 7021-8 ####[facility] LABCLIA [id number] [place] [address] [place] Immature granulocytes (Bld) [#/Vol] 0.08 10*3/uL Normal <0.10 [facility] Comment on above: Order Comment: Speci men Type: BLOOD SPECIMENOrdering Facility: [facility] Address: [address] [place] [address] Performed By: #### 5 7021-8 ####[facility] LABCLIA [id number] [place] [address] [place] Immature granulocytes/100 WBC (Bld) 0.7 % Normal [facility] Comment on above: Order Comment: Speci men Type: BLOOD SPECIMENOrdering Facility: [facility] Address: [address] [place] [address] Performed By: #### 5 7021-8 ####[facility] LABCLIA [id number] [place] [address] [place] Lymphocytes (Bld) [#/Vol] 0.73 10*3/uL Low 1.00-4.00 [facility] Comment on above: Order Comment: Speci men Type: BLOOD SPECIMENOrdering Facility: [facility] Address: [address] [place] [address] Performed By: #### 5 7021-8 ####[facility] LABCLIA [id number] [place] [address] [place] Lymphocytes/100 WBC (Bld) 6.7 % Normal [facility] Comment on above: Order Comment: Speci men Type: BLOOD SPECIMENOrdering Facility: [facility] Address: [address] [place] [address] Performed By: #### 5 7021-8 ####[facility] LABCLIA [id number] [address] [place] [address] [place] MCH (RBC) [Entitic mass] 29.8 pg Normal 26.0-34.0 [facility] Comment on above: Order Comment: Speci men Type: BLOOD SPECIMENOrdering Facility: [facility] Address: [address] [place] [address] Performed By: #### 5 7021-8 ####[facility] LABCLIA [id number] [place] [address] [place] MCHC (RBC) [Mass/Vol] 32.2 g/dL Normal 30.5-36.0 [facility] Comment on above: Order Comment: Speci men Type: BLOOD SPECIMENOrdering Facility: [facility] Address: [address] [place] [address] Performed By: #### 5 7021-8 ####[facility] LABCLIA [id number] [place] [address] [place] MCV (RBC) [Entitic vol] 92.4 fL Normal 80.0-100.0 [facility] Comment on above: Order Comment: Speci men Type: BLOOD SPECIMENOrdering Facility: [facility] Address: [address] [place] [address] Performed By: #### 5 7021-8 ####[facility] LABCLIA [id number] [place] [address] [place] Monocytes (Bld) [#/Vol] 0.75 10*3/uL Normal <0.87 [facility] Comment on above: Order Comment: Speci men Type: BLOOD SPECIMENOrdering Facility: [facility] Address: [address] [place] [address] Performed By: #### 5 7021-8 ####[facility] LABCLIA [id number] [place] [address] [place] Monocytes/100 WBC (Bld) 6.9 % Normal [facility] Comment on above: Order Comment: Speci men Type: BLOOD SPECIMENOrdering Facility: [facility] Address: [address] [place] [address] Performed By: #### 5 7021-8 ####[facility] LABCLIA [id number] [place] [address] [place] Neutrophils (Bld) [#/Vol] 8.92 10*3/uL High 1.45-7.50 [facility] Comment on above: Order Comment: Speci men Type: BLOOD SPECIMENOrdering Facility: [facility] Address: [address] [place] [address] Performed By: #### 5 7021-8 ####[facility] LABCLIA [id number] [place] [address] [place] Neutrophils/100 WBC (Bld) 82.4 % Normal [facility] Comment on above: Order Comment: Speci men Type: BLOOD SPECIMENOrdering Facility: [facility] Address: [address] [place] [address] Performed By: #### 5 7021-8 ####[facility] LABCLIA [id number] [place] [address] [place] Nucleated RBC (Bld) [#/Vol] 10*3/uL Normal <0.01 [facility] Comment on above: Order Comment: Speci men Type: BLOOD SPECIMENOrdering Facility: [facility] Address: [address] [place] [address] Performed By: #### 5 7021-8 ####[facility] LABCLIA [id number] [place] [address] [place] Nucleated RBC/100 WBC (Bld) [Ratio] 0.0 /100 WBC Normal [facility] Comment on above: Order Comment: Speci men Type: BLOOD SPECIMENOrdering Facility: [facility] Address: [address] [place] [address] Performed By: #### 5 7021-8 ####[facility] LABCLIA [id number] [place] [address] [place] Platelet mean volume (Bld) [Entitic vol] 11.8 fL Normal 9.0-12.7 [facility] Comment on above: Order Comment: Speci men Type: BLOOD SPECIMENOrdering Facility: [facility] Address: [address] [place] [address] Performed By: #### 5 7021-8 ####[facility] LABIA [id number] [place] [address] [place] Platelets (Bld) [#/Vol] 234 10*3/uL Normal 150-400 [facility] Comment on above: Order Comment: Speci men Type: BLOOD SPECIMENOrdering Facility: [facility] Address: [address] [place] [address] Performed By: #### 5 7021-8 ####[facility] LABCLIA [id number] [place] [address] [place] RBC (Bld) [#/Vol] 5.51 10*6/uL Normal 4.20-6.00 [facility] Comment on above: Order Comment: Speci men Type: BLOOD SPECIMENOrdering Facility: [facility] Address: [address] [place] [address] Performed By: #### 5 7021-8 ####[facility] LABIA [id number] [place] [address] [place] WBC (Bld) [#/Vol] 10.83 10*3/uL Normal 3.70-11.00 [facility] Comment on above: Order Comment: Speci men Type: BLOOD SPECIMENOrdering Facility: [facility] Address: [address] [place] [address] Performed By: #### 5 7021-8 ####[facility] LABCLIA [id number] [place] [address] [place] CNOVon 02-25-2024 CNOV Office Visit (FAMPWS ) CLARK LYLES ([id number]) 1935 M Date Time Provider Department 02/25/24 8:20 AM [facility] During your visit today, we recorded the following information about you: Pulse Respiration Blood pressure Weight 60/minute 16/minute 148/70 68.9 kg Brigitte Segal, [facility] 02/25/2024 8:51 AM Signed This is a [...] lipoma performed by Dr. Robe Mackenzie at [facility] REVSC OPN/PRQ FEM/POP W/STNT/ANGIOP SM VSL 03-18-14 [...] APRN.Pop Harden (more content not included)... Normal [facility] Comprehensive metabolic 2000 panelon 02-25-2024 Albumin [Mass/Vol] 4.4 g/dL Normal 3.9-4.9 [facility] Comment on above: Order Comment: Speci men Type: BLOOD SPECIMENOrdering Facility: [facility] Address: [address] [place] [address] Performed By: #### 3 040-3, 1798-02, ####[facility] LABIA [id number] [place] [address] [place] ALP [Catalytic activity/Vol] 57 U/L Normal 38-113 [facility] Comment on above: Order Comment: Speci men Type: BLOOD SPECIMENOrdering Facility: [facility] Address: [address] [place] [address] Performed By: #### 3 040-3, 1798-02, ####[facility] LABCLIA [id number] [place] [address] [place] ALT [Catalytic activity/Vol] 24 U/L Normal 10-54 [facility] Comment on above: Order Comment: Speci men Type: BLOOD SPECIMENOrdering Facility: [facility] Address: [address] [place], [place] [address] Performed By: #### 3 040-3, 1798-02, ####[facility] LABCLIA [id number] [address] [address] [place] Anion gap [Moles/Vol] 12 mmol/L Normal 8-15 [facility] Comment on above: Order Comment: Speci men Type: BLOOD SPECIMENOrdering Facility: [facility] Address: [address] [place], [place] [address] Performed By: #### 3 040-3, 1798-02, ####[facility] LABCLIA [id number] [place] [id number] [place] AST [Catalytic activity/Vol] 28 U/L Normal 14-40 [facility] Comment on above: Order Comment: Speci men Type: BLOOD SPECIMENOrdering Facility: [facility] Address: [address] [place] [address] Performed By: #### 3 040-3, 1798-02, ####[facility] LABCLIA [id number] [place] [id number] [place] Bilirubin [Mass/Vol] 1.1 mg/dL Normal 0.2-1.3 [facility] Comment on above: Order Comment: Speci men Type: BLOOD SPECIMENOrdering Facility: [facility] Address: [address] [place], [place] [address] Performed By: #### 3 040-3, 1798-02, ####[facility] LABCLIA [id number] [address] [address] [place] Calcium [Mass/Vol] 9.7 mg/dL Normal 8.5-10.2 [facility] Comment on above: Order Comment: Speci men Type: BLOOD SPECIMENOrdering Facility: [facility] Address: [address] [place], [place] [address] Performed By: #### 3 040-3, 1798-02, 39729-5 ####[facility] LABCLIA [id number] [place] [id number] [place] Chloride [Moles/Vol] 103 mmol/L Normal 98-107 [facility] Comment on above: Order Comment: Speci men Type: BLOOD SPECIMENOrdering Facility: [facility] Address: [address] [place] [address] Performed By: #### 3 040-3, 1798-02, ####[facility] LABIA [id number] [place] [address] [place] CO2 [Moles/Vol] 24 mmol/L Normal 22-30 [facility] Comment on above: Order Comment: Speci men Type: BLOOD SPECIMENOrdering Facility: [facility] Address: [address] [place] [address] Performed By: #### 3 040-3, 1798-02, 63309-3 ####[facility] LABIA [id number] [place] [address] [place] Creatinine [Mass/Vol] 0.90 mg/dL Normal 0.73-1.22 [facility] Comment on above: Order Comment: Speci men Type: BLOOD SPECIMENOrdering Facility: [facility] Address: [address] [place] [address] Performed By: #### 3 040-3, 1798-02, ####[facility] LABIA [id number] [place] [address] [place] Creatinine and Glomerular filtration rate.predicted panel (S/P/Bld) 83 mL/min/1.73m??? Normal >=60 [facility] Comment on above: Order Comment: Speci men Type: BLOOD SPECIMENOrdering Facility: [facility] Address: [address] [place] [address] Result Comment: Louann mated Glomerular Filtration Rate [...] GFR. Performed By: #### 3 040-3, 8, ####[facility] LABCLIA [id number] [place] [id number] [place] Glucose [Mass/Vol] 89 mg/dL Normal 74-99 [facility] Comment on above: Order Comment: Spe[place] men Type: BLOOD SPECIMENOrdering Facility: [facility] Address: [address] [place] [address] Result Comment: The [place] [employer] Association (ADA) provides guidance for cutoff [...] Standards of Medical Care in Diabetes 2016, [place] [employer]. Diabetes Care. 2016.39(Suppl 1). Performed By: #### 3 040-3, 1798-02, ####[facility] LABCLIA [id number] [place] [id number] [place] Potassium [Moles/Vol] 4.4 mmol/L Normal 3.7-5.1 [facility] Comment on above: Order Comment: Kailey simons Type: BLOOD SPECIMENOrdering Facility: [facility] Address: [address] [place] [address] Performed By: #### 3 040-3, 8, ####[facility] LABCLIA [id number] [place] [address] [place] Protein [Mass/Vol] 6.1 g/dL Low 6.3-8.0 [facility] Comment on above: Order Comment: Speci men Type: BLOOD SPECIMENOrdering Facility: [facility] Address: [address] [place] [address] Performed By: #### 3 040-3, 8, 50217-0 ####[facility] LABCLIA [id number] [place] [address] [place] Sodium [Moles/Vol] 139 mmol/L Normal 136-144 [facility] Comment on above: Order Comment: Speci men Type: BLOOD SPECIMENOrdering Facility: [facility] Address: [address] [place] [address] Performed By: #### 3 040-3, 1798-02, 68221-4 ####[facility] LABIA [id number] [place] [address] [place] Urea nitrogen [Mass/Vol] 15 mg/dL Normal 9-24 [facility] Comment on above: Order Comment: Speci men Type: BLOOD SPECIMENOrdering Facility: [facility] Address: [address] [place] [address] Performed By: #### 3 040-3, 1798-02, 65062-8 ####[facility] LABCLIA [id number] [place] [id number] [place] H. pylori IgG IA Qlon 2023 H. PYLORI IGG, QUAL Negative Normal Negative [facility] Comment on above: Order Comment: Speci men Type: BLOOD SPECIMENOrdering Facility: [facility] Address: [address] [place] [address] Result Comment: To ot exclude H. pylori infection if the specimen collected 3-4 weeks after onset of symptoms. Performed By: #### 1 7859-0 ####[facility] LABCLIA [id number] [place] [id number] [place] Lipase SerPl-cCncon 02-25-20 24 Lipase [Catalytic activity/Vol] 41 U/L Normal 16-61 [facility] Comment on above: Order Comment: Speci men Type: BLOOD SPECIMENOrdering Facility: [facility] Address: [address] [place] [address] Performed By: #### 3 040-3, 1798-8, 78203-2 ####[facility] [id number] [place] [address] [place] Cardiology Visit Reporton Cardiology Visit Report [facility] [place] 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 Normal [facility] 12 Lead EKGon 02-09-2024 12 Lead EKG [facility] [address] [place] [address] 12 Lead EKG 02/09/24 0952 MR#: [id number] Acct: [id number] Name: CLARK LYLES Rep #: [id number] : 1935 88 From: Farrah Ruvalcaba MD [...] Normal ECG Confirmed by RITA MANUEL, YUAN ([id number]), medical transcription editor FARSHAD PANDYA ([id number]) on 02/13/2024 9:44:33 AM Referred By: AR Confirmed By:ABEL RUVALCABA MD 02/13/24943 Date Farrah Ruvalcaba MD CC: Dr. Tamra Ivey MD; CHRISTINE Brown Signed Normal [facility] BNP,B-Type NATRIURETIC PEPTI Giovanni 02-09-2024 Natriuretic peptide B (Bld) [Mass/Vol] 180.0 pg/mL High 0-100 [facility] Comment on above: Performed By: #### L 100.0100, L300.8000, L503.6620, L500.2500, L501.4020 ####[facility] [address] [place], [place], [id number] Basic Metabolic Profile (BMP )on 02-09-2024 BUN/CRE 13.1 RATIO Normal 10-20 [facility] Comment on above: Order Comment: 'TROP ' Serial specimen #1, #2 or #3: 1 Performed By: #### L 100.0100, L300.8000, L503.6620, L500.2500, L501.4020 ####[facility] [address] [place], [address] CA,Total 9.0 mg/dL Normal 8.5-10.1 [facility] Comment on above: Order Comment: 'TROP ' Serial specimen #1, #2 or #3: 1 Performed By: #### L 100.0100, L300.8000, L503.6620, L500.2500, L501.4020 ####[facility] [address] [place], [address] Chloride [Moles/Vol] 105 mmol/L Normal 98-107 [facility] Comment on above: Order Comment: 'TROP ' Serial specimen #1, #2 or #3: 1 Performed By: #### L 100.0100, L300.8000, L503.6620, L500.2500, L501.4020 ####[facility] [address] [place], [address] CO2 [Moles/Vol] 24.0 mmol/L Normal 21.0-32.0 [facility] Comment on above: Order Comment: 'TROP ' Serial specimen #1, #2 or #3: 1 Performed By: #### L 100.0100, L300.8000, L503.6620, L500.2500, L501.4020 ####[facility] [address] [place], [address] Creatinine [Mass/Vol] 0.92 mg/dL Normal 0.70-1.30 [facility] Comment on above: Order Comment: 'TROP ' Serial specimen #1, #2 or #3: 1 Result Comment: The validity of the calculated GFR GFRAA in patients over 70 years has not been determined. Clinical correlation is essential. Performed By: #### L 100.0100, L300.8000, L503.6620, L500.2500, L501.4020 ####[facility] [address] [place], [address] ECRCL 58.61 ml/min Normal [facility] Comment on above: Order Comment: 'TROP ' Serial specimen #1, #2 or #3: 1 Performed By: #### L 100.0100, L300.8000, L503.6620, L500.2500, L501.4020 ####[facility] [address] [place], [address] EST GFR - AA 100 mL/min Normal >60 [facility] Comment on above: Order Comment: 'TROP ' Serial specimen #1, #2 or #3: 1 Result Comment: Afri can [place] GFR Calc Performed By: #### L 100.0100, L300.8000, L503.6620, L500.2500, L501.4020 ####[facility] [address] [place], [address] GAP 7 Normal 5-15 [facility] Comment on above: Order Comment: 'TROP ' Serial specimen #1, #2 or #3: 1 Performed By: #### L 100.0100, L300.8000, L503.6620, L500.2500, L501.4020 ####[facility] [address] [place], [address] GFR/1.73 sq M.predicted among non-blacks MDRD (S/P/Bld) [Vol rate/Area] 83 mL/min/{1.73_m2} Normal >60 [facility] Comment on above: Order Comment: 'TROP ' Serial specimen #1, #2 or #3: 1 Result Comment: Non- GFR Calc Performed By: #### L 100.0100, L300.8000, L503.6620, L500.2500, L501.4020 ####[facility] [address] [place], [address] Glucose [Mass/Vol] 115 mg/dL High 74-106 [facility] Comment on above: Order Comment: 'TROP ' Serial specimen #1, #2 or #3: 1 Result Comment: Fast ing Glucose result from 100 to 125 mg/dL suggests IMPAIRED HOMEOSTASIS per A.D.A. criteria. Performed By: #### L 100.0100, L300.8000, L503.6620, L500.2500, L501.4020 ####[facility] [address] [place], [address] Potassium [Moles/Vol] 3.6 mmol/L Normal 3.5-5.1 [facility] Comment on above: Order Comment: 'TROP ' Serial specimen #1, #2 or #3: 1 Performed By: #### L 100.0100, L300.8000, L503.6620, L500.2500, L501.4020 ####[facility] [address] [place], [address] Sodium [Moles/Vol] 136 mmol/L Normal 136-145 [facility] Comment on above: Order Comment: 'TROP ' Serial specimen #1, #2 or #3: 1 Performed By: #### L 100.0100, L300.8000, L503.6620, L500.2500, L501.4020 ####[facility] [address] [place], [address] Urea nitrogen [Mass/Vol] 12 mg/dL Normal 7-18 [facility] Comment on above: Order Comment: 'TROP ' Serial specimen #1, #2 or #3: 1 Performed By: #### L 100.0100, L300.8000, L503.6620, L500.2500, L501.4020 ####[facility] [address] [place], [address] CBC W/Diff, Automatedon 07- Absolute Lymph 0.49 X10 3/uL Low 0.83-4.51 [facility] Comment on above: Performed By: #### L 100.0100, L300.8000, L503.6620, L500.2500, L501.4020 ####[facility] [address] [place], [address] Absolute Neut 7.0 X10 3/uL Normal 2.0-7.7 [facility] Comment on above: Performed By: #### L 100.0100, L300.8000, L503.6620, L500.2500, L501.4020 ####[facility] [address] [place], [address] Basophils/100 WBC (Bld) 0.2 % Normal 0-1 [facility] Comment on above: Performed By: #### L 100.0100, L300.8000, L503.6620, L500.2500, L501.4020 ####[facility] [address] [place], [address] Eosinophils/100 WBC (Bld) 1.4 % Normal 0-5 [facility] Comment on above: Performed By: #### L 100.0100, L300.8000, L503.6620, L500.2500, L501.4020 ####[facility] [address] [place], [address] Erythrocyte distribution width (RBC) [Ratio] 15.9 % High 11.6-14.6 [facility] Comment on above: Performed By: #### L 100.0100, L300.8000, L503.6620, L500.2500, L501.4020 ####[facility] [address] [place], [address] Hematocrit (Bld) [Volume fraction] 46.2 % Normal 40-54 [facility] Comment on above: Performed By: #### L 100.0100, L300.8000, L503.6620, L500.2500, L501.4020 ####[facility] [address] [place], [address] Hemoglobin (Bld) [Mass/Vol] 15.6 g/dL Normal 13.0-16.5 [facility] Comment on above: Performed By: #### L 100.0100, L300.8000, L503.6620, L500.2500, L501.4020 ####[facility] [address] [place], [address] IG% 1.000 High 0.0-0.9 [facility] Comment on above: Result Comment: IG% - Immature Granulocytes (promyelocytes, myelocytes and metamyelocytes) > 1% indicates that a LEFT SHIFT is Present. Performed By: #### L 100.0100, L300.8000, L503.6620, L500.2500, L501.4020 ####[facility] [address] [place], [address] Lymphocytes/100 WBC (Bld) 5.8 % Low 19-41 [facility] Comment on above: Performed By: #### L 100.0100, L300.8000, L503.6620, L500.2500, L501.4020 ####[facility] [address] [place], [address] MCH (RBC) [Entitic mass] 30.8 pg Normal 27.0-32.0 [facility] Comment on above: Performed By: #### L 100.0100, L300.8000, L503.6620, L500.2500, L501.4020 ####[facility] [address] [place], [address] MCHC (RBC) [Mass/Vol] 33.8 g/dL Normal 32-36 [facility] Comment on above: Performed By: #### L 100.0100, L300.8000, L503.6620, L500.2500, L501.4020 ####[facility] [address] [place], [address] MCV (RBC) [Entitic vol] 91.1 fL Normal 80-94 [facility] Comment on above: Performed By: #### L 100.0100, L300.8000, L503.6620, L500.2500, L501.4020 ####[facility] [address] [place], [address] Monocytes/100 WBC (Bld) 8.1 % Normal 0-10 [facility] Comment on above: Performed By: #### L 100.0100, L300.8000, L503.6620, L500.2500, L501.4020 ####[facility] [address] [place], [address] Neutrophils/100 WBC (Bld) 83.5 % High 47-70 [facility] Comment on above: Performed By: #### L 100.0100, L300.8000, L503.6620, L500.2500, L501.4020 ####[facility] [address] [place], [address] Nucleated RBC (Bld) [#/Vol] 0 10*3/uL Normal 0-5 [facility] Comment on above: Performed By: #### L 100.0100, L300.8000, L503.6620, L500.2500, L501.4020 ####[facility] [address] [place], [address] Platelet mean volume (Bld) [Entitic vol] 10.8 fL Normal 6.2-12.0 [facility] Comment on above: Performed By: #### L 100.0100, L300.8000, L503.6620, L500.2500, L501.4020 ####[facility] [address] [place], [address] Platelets (Bld) [#/Vol] 264 10*3/uL Normal 150-450 [facility] Comment on above: Performed By: #### L 100.0100, L300.8000, L503.6620, L500.2500, L501.4020 ####[facility] [id number] [place], [address] RBC (Bld) [#/Vol] 5.07 10*6/uL Normal 4.6-6.2 [facility] Comment on above: Performed By: #### L 100.0100, L300.8000, L503.6620, L500.2500, L501.4020 ####[facility] [address] [place], [address] RDW SD 53.1 fl High 35.1-43.9 [facility] Comment on above: Performed By: #### L 100.0100, L300.8000, L503.6620, L500.2500, L501.4020 ####[facility] [address], [address] WBC (Bld) [#/Vol] 8.4 10*3/uL Normal 4.4-11.0 [facility] Comment on above: Performed By: #### L 100.0100, L300.8000, L503.6620, L500.2500, L501.4020 ####[facility] [address], [address] Chest PA and Lateralon 02-08 Chest PA and Lateral [facility] Imaging Services [address] [place] [place] [address] Chest PA and Lateral MR#: [id number] Acct: [id number] Name: CLARK LYLES Rep #: [id number] : 1935 M 88 From: Yana Sampson MD PCP: CHRISTINE Brown Status: REG ER Study: Chest PA and Lateral Date of Exam: 02/09/24 Exam# [id number] Ordering Dr: Tamra Ivey MD [id number] INDICATION: Shortness of breath EXAMINATION/TECHNIQUE: X-RAY - [...] CC: Dr. Tamra Ivey MD; CHRISTINE Brown Vp Purchasing: Signed Normal [facility] D-Dimer Quantitative (DVT/PE )on 02-09-2024 D-DIMER QUANT 0.34 FEU/ug/m Normal 0.27-0.49 [facility] Comment on above: Result Comment: NORM AL D-Dimer level (<0.50) indicates no DVT or PE. Performed By: #### L 100.0100, L300.8000, L503.6620, L500.2500, L501.4020 ####[facility] [address] [facility] [place], [address] Emergency Department Summary on 02-09-2024 Emergency Department Summary [facility] Medical Records Department [address] [place] [address] Emergency Department Summary 02/09/24 MR#: [id number] Acct: [id number] Name: CLARK LYLES Rep #: [id number] : 1935 88 From: Tamra Ivey MD [...] He has not noted peripheral swelling. [facility] Medical History COVID-19 virus detected (08/23/20) Anxiety and depression Chronic anemia Acute respiratory failure with hypoxia Hypoxia Pneumonia due to COVID-19 virus GI bleed (12/2019) Atherosclerosis of coronary artery of [place] heart without angina pectoris Peripheral vascular occlusive [...] Neurologic Neurologi (more content not included)... Normal [facility] L501.4020on 02-09-2024 TROPONIN-I HS 7 pg/mL Normal 3.0-78.0 [facility] Comment on above: Order Comment: 'TROP ' Serial specimen #1, #2 or #3: 1 Result Comment: Peg jiménez Note: New Test Units and Gender Specific Reference Ranges. For more information see Policy Stat Procedure [place] High Sensitivity Troponin (TNIH) and attachments. Performed By: #### L 100.0100, L300.8000, L503.6620, L500.2500, L501.4020 ####[facility] [address] [place], [address] [facility] 12-28-2023 [facility] Telephone ([facility] [place]) CLARK LYLES ([id number]) 1935 M Date Time Provider Department 12/28/23 WALTER GOMEZ [facility] During your visit today, we recorded the [...] Meds Comments as of 04/18/2021: Taking Saw Victor. Problem List As Of Date 12/28/2023 Noted [...] chronic blood los*01/27/2020 Coronary artery disease involving ekwok rabago*12/22/2020 S/P primary angioplasty with coronary stent [Z9*12/22/2020 Fall from standing [W19.XXXA] 09/20/2021 Encounter for support and coordination of trans*08/11/2023 Acute respiratory failure with hypoxia (HCC) [J*09/25/2023 Letter Text Encounter Status:Closed by SHIRLEY RIVERA on 01/04/24 Normal [facility] CBC W Auto Differential pane l (Bld)on 12-27-2023 Basophils (Bld) [#/Vol] 0.04 10*3/uL Normal <0.11 [facility] Comment on above: Order Comment: Speci men Type: BLOOD SPECIMENOrdering Facility: [facility] Address: [address] [place] [address] Performed By: #### 5 7021-8 ####[facility] LABCLIA [id number] [place] [address] [place] Basophils/100 WBC (Bld) 0.5 % Normal [facility] Comment on above: Order Comment: Speci men Type: BLOOD SPECIMENOrdering Facility: [facility] Address: [address] [place] [address] Performed By: #### 5 7021-8 ####[facility] LABCLIA [id number] [place] [address] [place] Differential cell count method Nom (Bld) Auto Normal [facility] Comment on above: Order Comment: Speci men Type: BLOOD SPECIMENOrdering Facility: [facility] Address: [address] [place] [address] Performed By: #### 5 7021-8 ####[facility] LABCLIA [id number] [place] [address] [place] Eosinophils (Bld) [#/Vol] 0.36 10*3/uL Normal <0.46 [facility] Comment on above: Order Comment: Speci men Type: BLOOD SPECIMENOrdering Facility: [facility] Address: [address] [place] [address] Performed By: #### 5 7021-8 ####[facility] LABCLIA [id number] [place] [address] [place] Eosinophils/100 WBC (Bld) 4.5 % Normal [facility] Comment on above: Order Comment: Speci men Type: BLOOD SPECIMENOrdering Facility: [facility] Address: [address] [place] [address] Performed By: #### 5 7021-8 ####[facility] LABCLIA [id number] [place] [address] [place] Erythrocyte distribution width (RBC) [Ratio] 16.4 % High 11.5-15.0 [facility] Comment on above: Order Comment: Speci men Type: BLOOD SPECIMENOrdering Facility: [facility] Address: [address] [place] [address] Performed By: #### 5 7021-8 ####[facility] LABCLIA [id number] [place] [address] [place] Hematocrit (Bld) [Volume fraction] 47.6 % Normal 39.0-51.0 [facility] Comment on above: Order Comment: Speci men Type: BLOOD SPECIMENOrdering Facility: [facility] Address: [address] [place] [address] Performed By: #### 5 7021-8 ####[facility] LABCLIA [id number] [place] [address] [place] Hemoglobin (Bld) [Mass/Vol] 15.7 g/dL Normal 13.0-17.0 [facility] Comment on above: Order Comment: Speci men Type: BLOOD SPECIMENOrdering Facility: [facility] Address: [address] [place] [address] Performed By: #### 5 7021-8 ####[facility] LABCLIA [id number] [place] [address] [place] Immature granulocytes (Bld) [#/Vol] 0.07 10*3/uL Normal <0.10 [facility] Comment on above: Order Comment: Speci men Type: BLOOD SPECIMENOrdering Facility: [facility] Address: [address] [place] [address] Performed By: #### 5 7021-8 ####[facility] LABCLIA [id number] [place] [address] [place] Immature granulocytes/100 WBC (Bld) 0.9 % Normal [facility] Comment on above: Order Comment: Speci men Type: BLOOD SPECIMENOrdering Facility: [facility] Address: [address] [place] [address] Performed By: #### 5 7021-8 ####[facility] LABCLIA [id number] [place] [address] [place] Lymphocytes (Bld) [#/Vol] 0.72 10*3/uL Low 1.00-4.00 [facility] Comment on above: Order Comment: Speci men Type: BLOOD SPECIMENOrdering Facility: [facility] Address: [address] [place] [address] Performed By: #### 5 7021-8 ####[facility] LABIA [id number] [place] [address] [place] Lymphocytes/100 WBC (Bld) 8.9 % Normal [facility] Comment on above: Order Comment: Speci men Type: BLOOD SPECIMENOrdering Facility: [facility] Address: [address] [place] [address] Performed By: #### 5 7021-8 ####[facility] LABCLIA [id number] [place] [address] [place] MCH (RBC) [Entitic mass] 30.5 pg Normal 26.0-34.0 [facility] Comment on above: Order Comment: Speci men Type: BLOOD SPECIMENOrdering Facility: [facility] Address: [address] [place] [address] Performed By: #### 5 7021-8 ####[facility] LABCLIA [id number] [place] [address] [place] MCHC (RBC) [Mass/Vol] 33.0 g/dL Normal 30.5-36.0 [facility] Comment on above: Order Comment: Speci men Type: BLOOD SPECIMENOrdering Facility: [facility] Address: [address] [place] [address] Performed By: #### 5 7021-8 ####[facility] LABCLIA [id number] [place] [address] [place] MCV (RBC) [Entitic vol] 92.6 fL Normal 80.0-100.0 [facility] Comment on above: Order Comment: Speci men Type: BLOOD SPECIMENOrdering Facility: [facility] Address: [address] [place] [address] Performed By: #### 5 7021-8 ####[facility] LABCLIA [id number] [place] [address] [place] Monocytes (Bld) [#/Vol] 0.84 10*3/uL Normal <0.87 [facility] Comment on above: Order Comment: Speci men Type: BLOOD SPECIMENOrdering Facility: [facility] Address: [address] [place] [address] Performed By: #### 5 7021-8 ####[facility] LABIA [id number] [place] [address] [place] Monocytes/100 WBC (Bld) 10.4 % Normal [facility] Comment on above: Order Comment: Speci men Type: BLOOD SPECIMENOrdering Facility: [facility] Address: [address] [place] [address] Performed By: #### 5 7021-8 ####[facility] LABCLIA [id number] [place] [address] [place] Neutrophils (Bld) [#/Vol] 6.02 10*3/uL Normal 1.45-7.50 [facility] Comment on above: Order Comment: Speci men Type: BLOOD SPECIMENOrdering Facility: [facility] Address: [address] [place] [address] Performed By: #### 5 7021-8 ####[facility] LABCLIA [id number] [place] [address] [place] Neutrophils/100 WBC (Bld) 74.8 % Normal [facility] Comment on above: Order Comment: Speci men Type: BLOOD SPECIMENOrdering Facility: [facility] Address: [address] [place] [address] Performed By: #### 5 7021-8 ####[facility] LABIA [id number] [place] [address] [place] Nucleated RBC (Bld) [#/Vol] 10*3/uL Normal <0.01 [facility] Comment on above: Order Comment: Speci men Type: BLOOD SPECIMENOrdering Facility: [facility] Address: [address] [place] [address] Performed By: #### 5 7021-8 ####[facility] LABIA [id number] [place] [address] [place] Nucleated RBC/100 WBC (Bld) [Ratio] 0.0 /100 WBC Normal [facility] Comment on above: Order Comment: Speci men Type: BLOOD SPECIMENOrdering Facility: [facility] Address: [address] [place] [address] Performed By: #### 5 7021-8 ####[facility] LABCLIA [id number] [place] [address] [place] Platelet mean volume (Bld) [Entitic vol] 11.6 fL Normal 9.0-12.7 [facility] Comment on above: Order Comment: Speci men Type: BLOOD SPECIMENOrdering Facility: [facility] Address: [address] [place] [address] Performed By: #### 5 7021-8 ####[facility] LABCLIA [id number] [place] [address] [place] Platelets (Bld) [#/Vol] 209 10*3/uL Normal 150-400 [facility] Comment on above: Order Comment: Speci men Type: BLOOD SPECIMENOrdering Facility: [facility] Address: [address] [place] [address] Performed By: #### 5 7021-8 ####[facility] LABCLIA [id number] [place] [address] [place] RBC (Bld) [#/Vol] 5.14 10*6/uL Normal 4.20-6.00 [facility] Comment on above: Order Comment: Speci men Type: BLOOD SPECIMENOrdering Facility: [facility] Address: [address] [place] [address] Performed By: #### 5 7021-8 ####[facility] LABCLIA [id number] [place] [address] [place] WBC (Bld) [#/Vol] 8.05 10*3/uL Normal 3.70-11.00 [facility] Comment on above: Order Comment: Speci men Type: BLOOD SPECIMENOrdering Facility: [facility] Address: [address] [place] [address] Performed By: #### 5 7021-8 ####[facility] LABCLIA [id number] [place] [address] [place] Comprehensive metabolic 2000 panelon 12-27-2023 Albumin [Mass/Vol] 4.3 g/dL Normal 3.9-4.9 [facility] Comment on above: Order Comment: Speci men Type: BLOOD SPECIMENOrdering Facility: [facility] Address: [address] [place] [address] Performed By: #### 2 4323-8, 08474-4, 62027-5 ####[facility] LABCLIA [id number] [place] [address] [place] ALP [Catalytic activity/Vol] 57 U/L Normal 38-113 [facility] Comment on above: Order Comment: Speci men Type: BLOOD SPECIMENOrdering Facility: [facility] Address: [address] [place] [address] Performed By: #### 2 4323-8, 28562-0, ####[facility] LABCLIA [id number] [place] [address] [place] ALT [Catalytic activity/Vol] 15 U/L Normal 10-54 [facility] Comment on above: Order Comment: Speci men Type: BLOOD SPECIMENOrdering Facility: [facility] Address: [address] [place] [address] Performed By: #### 2 4323-8, , ####[facility] LABCLIA [id number] [place] [address] [place] Anion gap [Moles/Vol] 13 mmol/L Normal 9-18 [facility] Comment on above: Order Comment: Speci men Type: BLOOD SPECIMENOrdering Facility: [facility] Address: [address] [place] [address] Performed By: #### 2 4323-8, , ####[facility] LABCLIA [id number] [place] [address] [place] AST [Catalytic activity/Vol] 19 U/L Normal 14-40 [facility] Comment on above: Order Comment: Speci men Type: BLOOD SPECIMENOrdering Facility: [facility] Address: [address] [place] [address] Performed By: #### 2 4323-8, , ####[facility] LABCLIA [id number] [place] [id number] [place] Bilirubin [Mass/Vol] 1.3 mg/dL Normal 0.2-1.3 [facility] Comment on above: Order Comment: Speci men Type: BLOOD SPECIMENOrdering Facility: [facility] Address: [address] [place] [address] Performed By: #### 2 4323-8, , ####[facility] LABCLIA [id number] [address] [address] [place] Calcium [Mass/Vol] 9.0 mg/dL Normal 8.5-10.2 [facility] Comment on above: Order Comment: Speci men Type: BLOOD SPECIMENOrdering Facility: [facility] Address: [address] [place], [place] [address] Performed By: #### 2 4323-8, , ####[facility] LABCLIA [id number] [place] [id number] [place] Chloride [Moles/Vol] 106 mmol/L High 97-105 [facility] Comment on above: Order Comment: Speci men Type: BLOOD SPECIMENOrdering Facility: [facility] Address: [address] [place] [address] Performed By: #### 2 4323-8, , ####[facility] LABCLIA [id number] [place] [id number] [place] CO2 [Moles/Vol] 23 mmol/L Normal 22-30 [facility] Comment on above: Order Comment: Speci men Type: BLOOD SPECIMENOrdering Facility: [facility] Address: [address] [place] [address] Performed By: #### 2 4323-8, , ####[facility] LABCLIA [id number] [address] [address] [place] Creatinine [Mass/Vol] 1.00 mg/dL Normal 0.73-1.22 [facility] Comment on above: Order Comment: Speci men Type: BLOOD SPECIMENOrdering Facility: [facility] Address: [address] [address] Performed By: #### 2 4323-8, 94207-4, 97367-2 ####[facility] LABCLIA [id number] [place] [id number] [place] Creatinine and Glomerular filtration rate.predicted panel (S/P/Bld) 73 mL/min/1.73m??? Normal >=60 [facility] Comment on above: Order Comment: Kailey simons Type: BLOOD SPECIMENOrdering Facility: [facility] Address: [address] [place] [address] Result Comment: Louann mated Glomerular Filtration Rate [...] actual GFR. Performed By: #### 2 4323-8, 49817-2, 18983-1 ####[facility] LABCLIA [id number] [place] [id number] [place] Glucose [Mass/Vol] 93 mg/dL Normal 74-99 [facility] Comment on above: Order Comment: Kailey simons Type: BLOOD SPECIMENOrdering Facility: [facility] Address: [address] [place] [address] Result Comment: The [place] [employer] Association (ADA) provides guidance for cutoff [...] Standards of Medical Care in Diabetes 2016, [place] [employer]. Diabetes Care. 2016.39(Suppl 1). Performed By: #### 2 4323-8, 08727-5, 98261-1 ####[facility] LABCLIA [id number] [address] [address] [place] Potassium [Moles/Vol] 4.0 mmol/L Normal 3.7-5.1 [facility] Comment on above: Order Comment: Speci men Type: BLOOD SPECIMENOrdering Facility: [facility] Address: [address] [place] [address] Performed By: #### 2 4323-8, , 14179-0 ####[facility] LABCLIA [id number] [place] [address] [place] Protein [Mass/Vol] 6.0 g/dL Low 6.3-8.0 [facility] Comment on above: Order Comment: Speci men Type: BLOOD SPECIMENOrdering Facility: [facility] Address: [address] [place] [address] Performed By: #### 2 4323-8, , 72114-2 ####[facility] LABIA [id number] [place] [address] [place] Sodium [Moles/Vol] 142 mmol/L Normal 136-144 [facility] Comment on above: Order Comment: Speci men Type: BLOOD SPECIMENOrdering Facility: [facility] Address: [address] [place] [address] Performed By: #### 2 4323-8, , 54763-9 ####[facility] LABCLIA [id number] [address] [address] [place] Urea nitrogen [Mass/Vol] 15 mg/dL Normal 9-24 [facility] Comment on above: Order Comment: Speci men Type: BLOOD SPECIMENOrdering Facility: [facility] Address: [address] [place] [address] Performed By: #### 2 4323-8, , ####[facility] LABCLIA [id number] [place] [address] [place] Lipid 1996 panelon 4 Cholesterol [Mass/Vol] 131 mg/dL Normal <200 [facility] Comment on above: Order Comment: Speci men Type: BLOOD SPECIMENOrdering Facility: [facility] Address: [facility] [place] [address] Result Comment: <200 mg/dL, Desirable 200-239 mg/dL, Borderline high >239 mg/dL, High Performed By: #### 2 4323-8, , ####[facility] LABCLIA [id number] [address] [place] Cholesterol in HDL [Mass/Vol] 38 mg/dL Low >39 [facility] Comment on above: Order Comment: Speci men Type: BLOOD SPECIMENOrdering Facility: [facility] Address: [address] [place] [address] Result Comment: 40-5 9 mg/dL, Acceptable >59 mg/dL, High: Negative risk factor for coronary heart disease <40 mg/dL, Low: Positive risk factor for coronary heart disease Performed By: #### 2 4323-8, , ####[facility] LABCLIA [id number] [address] [place] Cholesterol in LDL [Mass/Vol] 75 mg/dL Normal <100 [facility] Comment on above: Order Comment: Speci men Type: BLOOD SPECIMENOrdering Facility: [facility] Address: [address] [place] [address] Result Comment: <100 mg/dL, Optimal 100-129 mg/dL, Near optimal/above optimal 130-159 mg/dL, Borderline high 160-189 mg/dL, High >189 mg/dL, Very high Secondary prevention optimal LDL Cholesterol levels are recommended to be < 70 mg/dL Performed By: #### 2 4323-8, , ####[facility] LABCLIA [id number] [place] [address] [place] Cholesterol in LDL/Cholesterol in HDL [Mass ratio] 1.97 {ratio} Normal <2.54 [facility] Comment on above: Order Comment: Speci men Type: BLOOD SPECIMENOrdering Facility: [facility] Address: [address] [place] [address] Result Comment: Refe rence: 1. National Cholesterol Education Program ATP III Guideline At-A-Glance Quick Desk Reference: National Heart, Lung, and Blood [place]. National Institutes of Health. 2001: NIH Publication No. 01-3305. 2. An International Atherosclerosis Society position paper: global recommendations for the management of dyslipidemia: executive summary, Atherosclerosis. 2014: 232(2):410-413. Performed By: #### 2 4323-8, , ####[facility] LABCLIA [id number] [place] [address] [place] Cholesterol in VLDL [Mass/Vol] 18 mg/dL Normal <30 [facility] Comment on above: Order Comment: Speci men Type: BLOOD SPECIMENOrdering Facility: [facility] Address: [address] [place] [address] Performed By: #### 2 4323-8, , ####[facility] LABCLIA [id number] [place] [address] [place] Cholesterol non HDL [Mass/Vol] 93 mg/dL Normal <130 [facility] Comment on above: Order Comment: Speci men Type: BLOOD SPECIMENOrdering Facility: [facility] Address: [address] [place] [address] Result Comment: <130 mg/dL, Optimal 130-159 mg/dL, Near optimal/above optimal 160-189 mg/dL, Borderline high 190-219 mg/dL, High >219 mg/dL, Very high Secondary prevention optimal non HDL Cholesterol levels are recommended to be <100 mg/dL Performed By: #### 2 4323-8, , 36422-8 ####[facility] LABCLIA [id number] [address] [address] [address] [place] Cholesterol.total/Chol esterol in HDL [Mass ratio] 3.45 {ratio} Normal <5.10 [facility] Comment on above: Order Comment: Speci men Type: BLOOD SPECIMENOrdering Facility: [facility] Address: [address] [place] [address] Performed By: #### 2 4323-8, , 23367-9 ####[facility] LABIA [id number] [place] [address] [place] FASTING TIME 12 hrs Normal [facility] Comment on above: Order Comment: Speci men Type: BLOOD SPECIMENOrdering Facility: [facility] Address: [address] [place] [address] Performed By: #### 2 4323-8, , ####[facility] LABIA [id number] [place] [address] [place] Triglyceride [Mass/Vol] 91 mg/dL Normal <150 [facility] Comment on above: Order Comment: Speci men Type: BLOOD SPECIMENOrdering Facility: [facility] Address: [address] [place] [address] Result Comment: <150 mg/dL, Normal 150-199 mg/dL, Borderline high 200-499 mg/dL, High >499 mg/dL, Very high Performed By: #### 2 4323-8, , 87054-1 ####[facility] LABIA [id number] [place] [id number] [place] Magnesium SerPl-mCncon 12-26 Magnesium [Mass/Vol] 2.1 mg/dL Normal 1.7-2.3 [facility] Comment on above: Order Comment: Speci men Type: BLOOD SPECIMENOrdering Facility: [facility] Address: [address] [place] [address] Performed By: #### 2 4323-8, 36085-1, 97091-7 ####[facility] SUZANNE [id number] ADAL VILLALOBOS [id number] [address] [place] CARLOVon 12-25-2023 CNOV Office Visit (FAMPWS ) CLARK LYLES ([id number]) 1935 M Date Time Provider Department 12/25/23 9:00 AM [facility] During your visit today, we recorded the following information about you: Pulse Respiration Blood pressure Weight 61/minute 16/minute 120/68 72.1 kg Radha Durbin PA-C 12/26/2023 2:22 PM Signed 88 year old male with c/o here for follow up. 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 08/02/2023 echocardiogram [facility]: LV size WNL, mild concentric LVH, EF [...] to suggest ischemia. 02/08/2022 last cardiology visit [facility]: Ceo Na feels he is doing well and stable. [...] Lymph 1.00 - 4.00 k/uL 0.81 (L) Love% % 9.0 Abs Love <0.87 k/uL 0.99 (H) Eosin% % 2.6 [...] Ratio <5.10 (more content not included)... Normal [facility] Absolute lymphocyte countOrd ered By: Jerrell Faith on 08-04-2023 Lymphocytes Auto (Unsp spec) [#/Vol] 0.71 10*3/uL 0.83-4.51 [facility] Basophil percentageOrdered B y: Jerrell Faith on 08-04-2023 Basophils/100 WBC (Bld) 0.4 % 0-1 [facility] Chloride [Moles/Vol] 113 mmol/L 98-107 [facility] Eosinophils/100 WBC (Bld) 4.1 % 0-5 [facility] Glucose [Mass/Vol] 96 mg/dL 74-106 [facility] Neutrophils (Bld) [#/Vol] 6.1 10*3/uL 2.0-7.7 [facility] Neutrophils/100 WBC (Bld) 76.4 % 47-70 [facility] Potassium [Moles/Vol] 4.1 mmol/L 3.5-5.1 [facility] Sodium [Moles/Vol] 141 mmol/L 136-145 [facility] WBC (Bld) [#/Vol] 8.0 10*3/uL 4.4-11.0 [facility] Blood erythrocytes count (nu mber/volume)Ordered By: Jerrell Faith on 08-04-2023 RBC (Bld) [#/Vol] 4.52 10*6/uL 4.6-6.2 [facility] Blood hemoglobin measurement (mass/volume)Ordered By: Jerrell Faith on 08-04-2023 Hemoglobin (Bld) [Mass/Vol] 13.4 g/dL 13.0-16.5 [facility] Blood lymphocytes/100 leukoc ytesOrdered By: Jerrell Faith on 08-04-2023 Lymphocytes/100 WBC (Bld) 8.9 % 19-41 [facility] Blood monocytes/100 leukocyt esOrdered By: Jerrell Faith on 08-04-2023 Monocytes/100 WBC (Bld) 9.4 % 0-10 [facility] Blood platelet mean volumeOr dered By: Jerrell Faith on 08-04-2023 Platelet mean volume (Bld) [Entitic vol] 10.7 fL 6.2-12.0 [facility] Determination of erythrocyte mean corpuscular volume (MCV)Ordered By: Jerrell Faith on 08-04-2023 MCV (RBC) [Entitic vol] 92.3 fL 80-94 [facility] Hematocrit Auto (Bld) [Volum e fraction]Ordered By: Jerrell Faith on 08-04-2023 Hematocrit (Bld) [Volume fraction] 41.7 % 40-54 [facility] Laboratory - Chemistry and C hemistry - challengeOrdered By: Jerrell Faith on 08-04-2023 CO2 [Moles/Vol] 25.0 mmol/L 21.0-32.0 [facility] Urea nitrogen/Creatinine [Mass ratio] 22.1 mg/mg 10-20 [facility] Laboratory - Hematology and Cell countsOrdered By: Jerrell Faith on 08-04-2023 Erythrocyte distribution width (RBC) [Entitic vol] 49.3 fL 35.1-43.9 [facility] Erythrocyte distribution width (RBC) [Ratio] 14.6 % 11.6-14.6 [facility] Immature granulocytes/100 WBC (Bld) 0.800 % 0.0-0.9 [facility] Comment on above: IG% - Immature Granu locytes (promyelocytes, myelocytes and metamyelocytes) > 1% indicates that a LEFT SHIFT is Present. MCH (RBC) [Entitic mass] 29.6 pg 27.0-32.0 [facility] Nucleated RBC/100 WBC (Bld) [Ratio] 0 % 0-5 [facility] MCHC Auto (RBC) [Mass/Vol]Or dered By: Jerrell Faith on 08-04-2023 MCHC (RBC) [Mass/Vol] 32.1 g/dL 32-36 [facility] No Panel InformationOrdered By: Jerrell Faith on 08-04-2023 Estimated Creatinine Clearance Calc 66.51 ml/min [facility] Estimated GFR (MDRD) Amer 115 mL/min >60 [facility] Comment on above: GFR Calc Estimated GFR (MDRD) Non-Af Amer 95 mL/min >60 [facility] Comment on above: Non- GFR Calc Platelets bldOrdered By: Ismael Faith on 08-04-2023 Platelets (Bld) [#/Vol] 186 10*3/uL 150-450 [facility] Serum or plasma calcium nichole urement (mass/volume)Ordered By: Jerrell Faith on 08-04-2023 Calcium [Mass/Vol] 8.9 mg/dL 8.5-10.1 [facility] Serum or plasma creatinine m easurement (mass/volume)Ordered By: Jerrell Faith on 08-04-2023 Creatinine [Mass/Vol] 0.82 mg/dL 0.70-1.30 [facility] Comment on above: The validity of the calculated GFR & GFRAA in patients over 70 years has not been determined. Clinical correlation is essential. Serum or plasma urea nitroge n measurement (mass/volume)Ordered By: Jerrell Faith on 08-04-2023 Urea nitrogen [Mass/Vol] 18 mg/dL 7-18 [facility] Thin prep Papanicolaou smear with manual screeningOrdered By: Jerrell Faith on 08-04-2023 Thin prep Papanicolaou smear with manual screening 3 5-15 [facility] Basophil percentageOrdered B y: Jerrell Faith on 08-03-2023 Basophil percentage 2.1 mg/dL 2.5-4.9 [facility] Bilirubin [Mass/Vol] 0.30 mg/dL 0.20-1.00 [facility] Comment on above: For patients on eltr ombopag therapy, use of Dimension [place] TBIL is not recommended. Protein [Mass/Vol] 5.6 g/dL 6.4-8.2 [facility] Clostridium difficile detect ion by polymerase chain reactionOrdered By: Jerrell Faith on 08-03-2023 C. difficile DNA CAMERON+probe Ql (Unsp spec) [facility] Laboratory - Chemistry and C hemistry - challengeOrdered By: Jerrell Fatih on 08-03-2023 ALP [Catalytic activity/Vol] 46 U/L 45-117 [facility] ALT [Catalytic activity/Vol] 18 U/L 16-61 [facility] Globulin (S) [Mass/Vol] 2.6 g/dL 2.2-4.2 [facility] Magnesium [Mass/Vol] 1.9 mg/dL 1.6-2.6 [facility] Serum or plasma albumin nichole urement (mass/volume)Ordered By: Jerrell Faith on 08-03-2023 Albumin [Mass/Vol] 3.0 g/dL 3.2-5.0 [facility] Serum or plasma albumin/glob ulin mass ratioOrdered By: Jerrell Faith on 08-03-2023 Albumin/Globulin [Mass ratio] 1.2 {ratio} 0.9-2.4 [facility] Thin prep Papanicolaou smear with manual screeningOrdered By: Jerrell Faith on 08-03-2023 Thin prep Papanicolaou smear with manual screening 10 U/L 15-37 [facility] Blood manual differential co mment interpretation (narrative result)Ordered By: Jasmine Tan on 08-02-2023 Manual differential comment Héctor (Bld) [Interp] COMMENT [facility] Comment on above: LYMPHOPENIA. Urine Legionella pneumophila antigen detectionOrdered By: Jasmine Tan on 08-02-2023 L. pneumophila Ag Ql (U) [facility] Absolute lymphocyte countOrd ered By: Lewis Sutton on 08-01-2023 Lymphocytes Auto (Unsp spec) [#/Vol] 0.52 10*3/uL 0.83-4.51 [facility] Basophil percentageOrdered B y: Lewis Sutton on 08-01-2023 Basophils/100 WBC (Bld) 0.2 % 0-1 [facility] Chloride [Moles/Vol] 103 mmol/L 98-107 [facility] Eosinophils/100 WBC (Bld) 0.9 % 0-5 [facility] Glucose [Mass/Vol] 117 mg/dL 74-106 [facility] Comment on above: Fasting Glucose resu lt from 100 to 125 mg/dL suggests IMPAIRED HOMEOSTASIS per A.D.A. criteria. Neutrophils (Bld) [#/Vol] 7.6 10*3/uL 2.0-7.7 [facility] Neutrophils/100 WBC (Bld) 82.0 % 47-70 [facility] Potassium [Moles/Vol] 3.1 mmol/L 3.5-5.1 [facility] Sodium [Moles/Vol] 136 mmol/L 136-145 [facility] WBC (Bld) [#/Vol] 9.2 10*3/uL 4.4-11.0 [facility] Blood erythrocytes count (nu mber/volume)Ordered By: Lewis Sutton on 08-01-2023 RBC (Bld) [#/Vol] 4.78 10*6/uL 4.6-6.2 [facility] Blood hemoglobin measurement (mass/volume)Ordered By: Lewis Sutton on 08-01-2023 Hemoglobin (Bld) [Mass/Vol] 14.8 g/dL 13.0-16.5 [facility] Blood lymphocytes/100 leukoc ytesOrdered By: Lewis Sutton on 08-01-2023 Lymphocytes/100 WBC (Bld) 5.7 % 19-41 [facility] Blood manual differential co mment interpretation (narrative result)Ordered By: Lewis Sutton on 08-01-2023 Manual differential comment Héctor (Bld) [Interp] SCANNED [facility] Blood monocytes/100 leukocyt esOrdered By: Lewis Sutton on 08-01-2023 Monocytes/100 WBC (Bld) 10.3 % 0-10 [facility] Blood platelet mean volumeOr dered By: Lewis Sutton on 08-01-2023 Platelet mean volume (Bld) [Entitic vol] 11.5 fL 6.2-12.0 [facility] Determination of erythrocyte mean corpuscular volume (MCV)Ordered By: Lewis Sutton on 08-01-2023 MCV (RBC) [Entitic vol] 89.5 fL 80-94 [facility] Hematocrit Auto (Bld) [Volum e fraction]Ordered By: Lewis Sutton on 08-01-2023 Hematocrit (Bld) [Volume fraction] 42.8 % 40-54 [facility] Influenza virus A and B and SARS-CoV-2 (COVID-19) Ag panel - Upper respiratory specimOrdered By: Lewis Sutton on 08-01-2023 SARS-CoV-2 (COVID-19) RNA CAMERON+probe Ql (Resp) [facility] Laboratory - Chemistry and C hemistry - challengeOrdered By: Lewis Sutton on 08-01-2023 CO2 [Moles/Vol] 26.0 mmol/L 21.0-32.0 [facility] Natriuretic peptide B (Bld) [Mass/Vol] 198.3 pg/mL 0-100 [facility] Urea nitrogen/Creatinine [Mass ratio] 11.8 mg/mg 10-20 [facility] Laboratory - Hematology and Cell countsOrdered By: Lewis Sutton on 08-01-2023 Erythrocyte distribution width (RBC) [Entitic vol] 46.8 fL 35.1-43.9 [facility] Erythrocyte distribution width (RBC) [Ratio] 14.3 % 11.6-14.6 [facility] Immature granulocytes/100 WBC (Bld) 0.900 % 0.0-0.9 [facility] Comment on above: IG% - Immature Granu locytes (promyelocytes, myelocytes and metamyelocytes) > 1% indicates that a LEFT SHIFT is Present. MCH (RBC) [Entitic mass] 31.0 pg 27.0-32.0 [facility] Nucleated RBC/100 WBC (Bld) [Ratio] 0 % 0-5 [facility] Laboratory - Microbiology an d Antimicrobial susceptibilityOrdered By: Jasmine Tan on 08-01-2023 SARS-CoV-2 (COVID-19) RNA CAMERON+probe Ql (Unsp spec) [facility] MCHC Auto (RBC) [Mass/Vol]Or dered By: Lewis Sutton on 08-01-2023 MCHC (RBC) [Mass/Vol] 34.6 g/dL 32-36 [facility] No Panel InformationOrdered By: Lewis Sutton on 08-01-2023 D-Dimer Quantitative (PE/DVT) 0.47 FEU/ug/m 0.27-0.49 [facility] Comment on above: NORMAL D-Dimer level (<0.50) indicates no DVT or PE. Estimated Creatinine Clearance Calc 50.69 ml/min [facility] Estimated GFR (MDRD) Amer 82 mL/min >60 [facility] Comment on above: GFR Calc Estimated GFR (MDRD) Non-Af Amer 68 mL/min >60 [facility] Comment on above: Non- GFR Calc Troponin I High Sensitivity 8 pg/mL 3.0-78.0 [facility] Comment on above: Please Note: [place] t Units and Gender Specific Reference Ranges. For more information see Policy Stat Procedure [place] High Sensitivity Troponin (TNIH) and attachments. Platelets bldOrdered By: Gabby Sutton on 08-01-2023 Platelets (Bld) [#/Vol] 175 10*3/uL 150-450 [facility] Respiratory pathogens detect ion panel by molecular detection methodOrdered By: Jasmine Tan on 08-01-2023 Respiratory pathogens DNA and RNA panel CAMERON+probe (Resp) [facility] Serum or plasma calcium nichole urement (mass/volume)Ordered By: Lewis Sutton on 08-01-2023 Calcium [Mass/Vol] 8.8 mg/dL 8.5-10.1 [facility] Serum or plasma creatinine m easurement (mass/volume)Ordered By: Lewis Sutton on 08-01-2023 Creatinine [Mass/Vol] 1.10 mg/dL 0.70-1.30 [facility] Comment on above: The validity of the calculated GFR & GFRAA in patients over 70 years has not been determined. Clinical correlation is essential. Serum or plasma urea nitroge n measurement (mass/volume)Ordered By: Lewis Sutton on 08-01-2023 Urea nitrogen [Mass/Vol] 13 mg/dL 7-18 [facility] Serum procalcitonin measurem entOrdered By: Jasmine Tan on 08-01-2023 Procalcitonin [Mass/Vol] 0.07 ng/mL 0.00-0.09 [facility] Comment on above: A procalcitonin (PCT ) [...] Papanicolaou smear with manual screening 7 5-15 [facility] CBC W Auto Differential pane l (Bld)on 06-28-2023 Basophils (Bld) [#/Vol] 0.05 10*3/uL <0.11 k/uL [facility] Basophils/100 WBC (Bld) 0.5 % [facility] Differential cell count method Nom (Bld) Auto [facility] Eosinophils (Bld) [#/Vol] 0.29 10*3/uL <0.46 k/uL [facility] Eosinophils/100 WBC (Bld) 2.6 % [facility] Erythrocyte distribution width (RBC) [Ratio] 13.9 % 11.5 - 15.0 % [facility] Hematocrit (Bld) [Volume fraction] 50.0 % 39.0 - 51.0 % [facility] Hemoglobin (Bld) [Mass/Vol] 16.7 g/dL 13.0 - 17.0 g/dL [facility] Immature granulocytes (Bld) [#/Vol] 0.10 10*3/uL High <0.10 k/uL [facility] Immature granulocytes/100 WBC (Bld) 0.9 % [facility] Lymphocytes (Bld) [#/Vol] 0.81 10*3/uL Low 1.00 - 4.00 k/uL [facility] Lymphocytes/100 WBC (Bld) 7.4 % [facility] MCH (RBC) [Entitic mass] 31.0 pg 26.0 - 34.0 pg [facility] MCHC (RBC) [Mass/Vol] 33.4 g/dL 30.5 - 36.0 g/dL [facility] MCV (RBC) [Entitic vol] 92.9 fL 80.0 - 100.0 fL [facility] Monocytes (Bld) [#/Vol] 0.99 10*3/uL High <0.87 k/uL [facility] Monocytes/100 WBC (Bld) 9.0 % [facility] Neutrophils (Bld) [#/Vol] 8.78 10*3/uL High 1.45 - 7.50 k/uL [facility] Neutrophils/100 WBC (Bld) 79.6 % [facility] Nucleated RBC (Bld) [#/Vol] <0.01 k/uL [facility] Nucleated RBC/100 WBC (Bld) [Ratio] 0.0 /100 WBC [facility] Platelet mean volume (Bld) [Entitic vol] 11.6 fL 9.0 - 12.7 fL [facility] Platelets (Bld) [#/Vol] 229 10*3/uL 150 - 400 k/uL [facility] RBC (Bld) [#/Vol] 5.38 10*6/uL 4.20 - 6.00 m/uL [facility] WBC (Bld) [#/Vol] 11.02 10*3/uL High 3.70 - 11.00 k/uL [facility] Comprehensive metabolic 2000 panelon 06-28-2023 Albumin [Mass/Vol] 4.3 g/dL 3.9 - 4.9 g/dL [facility] ALP [Catalytic activity/Vol] 53 U/L 38 - 113 U/L [facility] ALT [Catalytic activity/Vol] 26 U/L 10 - 54 U/L [facility] Anion gap [Moles/Vol] 9 mmol/L 9 - 18 mmol/L [facility] AST [Catalytic activity/Vol] 21 U/L 14 - 40 U/L [facility] Bilirubin [Mass/Vol] 1.1 mg/dL 0.2 - 1 .3 mg/dL [facility] Calcium [Mass/Vol] 9.8 mg/dL 8.5 - 10. 2 mg/dL [facility] Chloride [Moles/Vol] 103 mmol/L 97 - 10 5 mmol/L [facility] CO2 [Moles/Vol] 27 mmol/L 22 - 30 mmol/L [facility] Creatinine [Mass/Vol] 1.11 mg/dL 0.73 - 1.22 mg/dL [facility] Estimated Glomerular Filtration Rate 65 mL/min/1.73m >=60 mL/min/1.7 3m [facility] Glucose [Mass/Vol] 94 mg/dL 74 - 99 mg/dL [facility] Potassium [Moles/Vol] 4.1 mmol/L 3.7 - 5.1 mmol/L [facility] Protein [Mass/Vol] 6.3 g/dL 6.3 - 8.0 g/dL [facility] Sodium [Moles/Vol] 139 mmol/L 136 - 144 mmol/L [facility] Urea nitrogen [Mass/Vol] 16 mg/dL 9 - 24 mg/dL [facility] CTA ABD/PEL W IVCONon 2022 [facility] XR LUMBAR GENERAL 3V AP/LAT/ L5-S1on 01-31-2023 [facility] XR Lumbar spine 3 Viewson IMPRESSION: NO EVIDE NCE OF FRACTURE Vp Purchasing: GINNA Transcribe Date/Time: Jan 31 2023 11:11A Dictated by : RIVERA OLIVAS MD This examination was interpreted and the report reviewed and electronically signed by: RIVERA OLIVAS MD on Jan 31 2023 11:13AM [facility] DIVISION OF RADIOLOGY * * *Final [...] calcifications are noted. DIVISION OF RADIOLOGY Provider, [facility] Siddharth [facility] - 01/31/2023 * * *Final Report* * [...] noted. IMPRESSION IMPRESSION: NO EVIDENCE OF FRACTURE Vp Purchasing: PSCAd Transcribe Date/Time: Jan 31 2023 11:11A Dictated by : RIVERA OLIVAS MD This examination was interpreted and the report reviewed and electronically signed by: RIVERA OLIVAS MD on Jan 31 2023 11:13AM EST [facility] Radiology Study observation (narrative) [facility] XR Lumbar spine 3 ViewsOrder ed By: [facility]cf Provider on 01-31-2023 [facility] UA DIP, URINE (POC)on 2022 BILIRUBIN UA (POCT) Negative Negative Carmelo [facility] CLARITY UA (POCT) Clear [facility] COLOR UA (POCT) Yellow [facility] GLUCOSE UA (POCT) Negative Negative mg/dL [facility] HEMOGLOBIN/BLOOD UA (POCT) Negative Negative [facility] KETONE UA (POCT) Negative Negative mg/dL [facility] LEUKOCYTES UA (POCT) Negative Negative [facility] NITRITE UA (POCT) Negative Negative [facility] PH UA (POCT) 5.5 4.5 - 8.0 [facility] Protein Ql (U) Negative Negative mg/dL [facility] SPECIFIC GRAVITY UA (POCT) 1.015 1.005 - 1.030 [facility] UROBILINOGEN UA (POCT) 0.2 E.U./dL Stephany l E.U./dL [facility] Office Visit: PAD, recheck diane arriola 05-31-2017 Documentation of current medications (procedure) Done Invalid Interpretation Code [facility] [employer] Work Phone: Fall risk assessment No Invalid Interpretation Code [facility] [employer] Work Phone: Tobacco smoking status NHIS Never Invalid Interpretation Code [facility] [employer] Work Phone: Tobacco use CPHS Former smoker Invalid Interpretation Code [facility] [employer] Work Phone: Lab Report: Basic Metabolic Profile (BMP)on 05-18-2017 Anion gap 9 mmol/L Invalid Interpretation Code 5-15 [facility] [employer] Work Phone: [phone] Anion gap 4 molar conc 9 Invalid Interpretation Code 15 [facility] [employer] Work Phone: Calcium mass conc 8.8 mg/dL Invalid Interpretation Code 8.5-10.1 [facility] [employer] Work Phone: Chloride molar conc 108 mmol/L High 98-107 [facility] [employer] Work Phone: CO2 23.0 mmol/L Invalid Interpretation Code 21.0-32.0 [facility] [employer] Work Phone: [phone] CO2 ppres (BldV) 23.0 mmol/L Invalid Interpretation Code 21.0-32.0 [facility] [employer] Work Phone: Creatinine mass conc 0.80 mg/dL Invalid Interpretation Code 0.70-1.30 [facility] [employer] Work Phone: eGFR (non-black) 120 mL/min/{1.73_m2} Invalid Interpretation Code >60 [facility] [employer] Work Phone: EST GFR - AA 120 mL/min Invalid Interpretation Code >60 [facility] [employer] Work Phone: GFR/1.73 sq M predicted among non-blacks MDRD vol rate/area (S/P/Bld) 99 mL/min/{1.73_m2} Invalid Interpretation Code >60 [facility] [employer] Work Phone: Glucose mass conc 120 mg/dL High 70-110 [facility] [employer] Work Phone: Potassium molar conc 3.6 mmol/L Invalid Interpretation Code 3.5-5.1 [facility] [employer] Work Phone: Sodium molar conc 140 mmol/L Invalid Interpretation Code 136-145 [facility] [employer] Work Phone: Urea nitrogen mass conc 13 mg/dL Invalid Interpretation Code 7-18 [facility] [employer] Work Phone: Urea nitrogen/Creatinine mass ratio 16.3 RATIO Invalid Interpretation Code 05-18 [facility] [employer] Work Phone: Office Visit: Awilda 05-08-20 17 Documentation of current medications (procedure) Done Invalid Interpretation Code [facility] [employer] Work Phone: Fall risk assessment No Invalid Interpretation Code [facility] [employer] Work Phone: Protein mass conc Done Invalid Interpretation Code [facility] [employer] Work Phone: Tobacco smoking status NHIS Never Invalid Interpretation Code [facility] [employer] Work Phone: Tobacco smoking status NHIS Former smoker Invalid Interpretation Code [facility] [employer] Work Phone: Tobacco use HS Former smoker Invalid Interpretation Code [facility] [employer] Work Phone: Vital Signs Date Time Vital Sign Value Performing Clinician Facility 02-08-2025 20:35-0400 Inhaled oxygen flow rate 8 L/min Brigitte Suppan [employer] Work Phone: [facility] 02-08-2025 20:35-0400 SaO2% (BldA) [Mass fraction] 90 % Brigitte Suppan [employer] Work Phone: [facility] 02-08-2025 20:08-0400 Body height 177.8 cm Brigitte Suppan [employer] Work Phone: [phone] [place] [address] 02-08-2025 20:08-0400 Body mass index (BMI) [Ratio] 22.1 kg/m2 Brigitte Suppan [employer] Work Phone: [facility] 02-08-2025 20:08-0400 Body weight 70 kg Brigitte Suppan [employer] Work Phone: [facility] 02-08-2025 19:45-0400 Body temperature 98.3 [degF] Brigitte Suppan [employer] Work Phone: [phone] [place] [address] 02-08-2025 19:45-0400 Diastolic blood pressure 65 mm[Hg] Brigitte Suppan [employer] Work Phone: [facility] 02-08-2025 19:45-0400 Heart rate 58 /min Brigitte Suppan [employer] Work Phone: [facility] 02-08-2025 19:45-0400 Respiratory rate 18 /min Brigitte Segal [employer] Work Phone: [facility] 02-08-2025 19:45-0400 Systolic blood pressure 128 mm[Hg] Brigitte Segal [employer] Work Phone: [facility] 10-16-2024 08:56-0400 Body height 177.[address] Neo Tejeda DO Work Phone: [facility] [facility] 10-16-2024 08:56-0400 Body mass index (BMI) [Ratio] 23.8 kg/m2 Dr. Neo Tejeda DO Work Phone: 6(423)[phone] [place] [address] 10-16-2024 08:56-0400 Body temperature 97.3 [degF] Dr. Neo Tejeda DO Work Phone: 2(947)[phone] [place] [address] 10-16-2024 08:56-0400 Body weight 75.[address] Neo Tejeda DO Work Phone: 2(498)595-609245 [place] [address] 10-16-2024 08:56-0400 Diastolic blood pressure 65 mm[Hg] Dr. Neo Tejeda DO Work Phone: 4(070)[phone] [place] [address] 10-16-2024 08:56-0400 Heart rate 73 /min Dr. Neo Tejeda DO Work Phone: 1(173)[phone] [place] [address] 10-16-2024 08:56-0400 Respiratory rate 20 /min Dr. Neo Tejeda DO Work Phone: 7(172)[phone] [place] [address] 10-16-2024 08:56-0400 SaO2% (BldA) [Mass fraction] 90 % Dr. Neo Tejeda DO Work Phone: 3(151)[phone] [place] [address] 10-16-2024 08:56-0400 Systolic blood pressure 121 mm[Hg] Dr. Neo Tejeda DO Work Phone: [facility] 09-19-2024 14:55-0500 Body mass index (BMI) [Ratio] 22.96 kg/m2 Brigitte Segal SIGNAL OPERATOR LINGUISTStaceyADMIN ASSISTANT Work Phone: [facility] 09-19-2024 14:55-0500 Body temperature 98.71 [degF] Brigitte Suppan SIGNAL OPERATOR LINGUIST.ADMIN ASSISTANT Work Phone: [facility] 09-19-2024 14:55-0500 Body weight 72.58 kg Brigitte Suppan SIGNAL OPERATOR LINGUIST.ADMIN ASSISTANT Work Phone: [facility] 09-19-2024 14:55-0500 Diastolic blood pressure 62 mm[Hg] Brigitte Suppan SIGNAL OPERATOR LINGUIST.ADMIN ASSISTANT Work Phone: [facility] 09-19-2024 14:55-0500 Heart rate 80 /min Brigitte Suppan SIGNAL OPERATOR LINGUIST.ADMIN ASSISTANT Work Phone: [facility] 09-19-2024 14:55-0500 SaO2% (BldA) [Mass fraction] 90 % Brigitte Suppan SIGNAL OPERATOR LINGUIST.ADMIN ASSISTANT Work Phone: [facility] Comment on above: 3 liters of oxygen 09-19-2024 14:55-0500 Systolic blood pressure 128 mm[Hg] Brigitte Suppan SIGNAL OPERATOR LINGUIST.ADMIN ASSISTANT Work Phone: [facility] 09-15-2024 15:00-0500 Body temperature 97.6 [degF] Dr. Neo Tejeda DO Work Phone: [facility] 09-15-2024 15:00-0500 Diastolic blood pressure 71 mm[Hg] Dr. Neo Tejeda DO Work Phone: [facility] 09-15-2024 15:00-0500 Heart rate 82 /min Dr. Neo Tejeda DO Work Phone: [facility] 09-15-2024 15:00-0500 Respiratory rate 16 /min Dr. Neo Tejeda DO Work Phone: [facility] 09-15-2024 15:00-0500 SaO2% (BldA) [Mass fraction] 93 % Dr. Neo Tejeda DO Work Phone: [facility] 09-15-2024 15:00-0500 Systolic blood pressure 140 mm[Hg] Dr. Neo Tejeda DO Work Phone: [facility] 09-15-2024 10:09-0500 Body weight 73.[address] Neo Tejeda DO Work Phone: [facility] 09-15-2024 09:00-0500 Inhaled oxygen flow rate 3 L/min Dr. Neo Tejeda DO Work Phone: [facility] 09-15-2024 03:59-0500 Body mass index (BMI) [Ratio] 23.1 kg/m2 Dr. Neo Tejeda DO Work Phone: [facility] 09-12-2024 09:19-0500 Inhaled oxygen concentration 34 % Dr. Neo Tejeda DO Work Phone: [facility] 03-27-2024 07:47-0400 Body mass index (BMI) [Ratio] 21.81 kg/m2 Brigitte Suppan SIGNAL OPERATOR LINGUIST.ADMIN ASSISTANT Work Phone: [facility] 03-27-2024 07:47-0400 Body weight 68.95 kg Brigitte Suppan SIGNAL OPERATOR LINGUIST.ADMIN ASSISTANT Work Phone: [facility] 03-27-2024 07:47-0400 Diastolic blood pressure 67 mm[Hg] Brigitte Suppan SIGNAL OPERATOR LINGUIST.ADMIN ASSISTANT Work Phone: [facility] 03-27-2024 07:47-0400 Heart rate 63 /min Brigitte Suppan SIGNAL OPERATOR LINGUIST.ADMIN ASSISTANT Work Phone: [facility] 03-27-2024 07:47-0400 Respiratory rate 16 /min Brigitte Suppan SIGNAL OPERATOR LINGUIST.ADMIN ASSISTANT Work Phone: [facility] 03-27-2024 07:47-0400 SaO2% (BldA) [Mass fraction] 94 % Brigitte Suppan SIGNAL OPERATOR LINGUIST.ADMIN ASSISTANT Work Phone: [facility] 03-27-2024 07:47-0400 Systolic blood pressure 126 mm[Hg] Brigitte Suppan SIGNAL OPERATOR LINGUIST.ADMIN ASSISTANT Work Phone: [facility] 02-25-2024 08:22-0400 Body mass index (BMI) [Ratio] 21.81 kg/m2 Brigitte Suppan SIGNAL OPERATOR LINGUIST.ADMIN ASSISTANT Work Phone: [facility] 02-25-2024 08:22-0400 Body weight 68.95 kg Brigitte Suppan SIGNAL OPERATOR LINGUIST.ADMIN ASSISTANT Work Phone: [facility] 02-25-2024 08:22-0400 Diastolic blood pressure 70 mm[Hg] Brigitte Suppan SIGNAL OPERATOR LINGUIST.ADMIN ASSISTANT Work Phone: [facility] 02-25-2024 08:22-0400 Heart rate 60 /min Brigitte Suppan SIGNAL OPERATOR LINGUIST.ADMIN ASSISTANT Work Phone: [facility] 02-25-2024 08:22-0400 Respiratory rate 16 /min Brigitte Suppan SIGNAL OPERATOR LINGUIST.ADMIN ASSISTANT Work Phone: [facility] 02-25-2024 08:22-0400 SaO2% (BldA) [Mass fraction] 94 % Brigitte Suppan SIGNAL OPERATOR LINGUIST.ADMIN ASSISTANT Work Phone: [facility] 02-25-2024 08:22-0400 Systolic blood pressure 148 mm[Hg] Brigitte Suppan SIGNAL OPERATOR LINGUIST.ADMIN ASSISTANT Work Phone: [facility] 12-25-2023 08:53-0400 Body mass index (BMI) [Ratio] 22.81 kg/m2 NA Durbin PA-C Work Phone: [facility] 12-25-2023 08:53-0400 Body weight 72.12 kg NA Durbin PA-C Work Phone: [facility] 12-25-2023 08:53-0400 Diastolic blood pressure 68 mm[Hg] NA Durbin PA-C Work Phone: [facility] 12-25-2023 08:53-0400 Heart rate 61 /min NA Durbin PA-C Work Phone: [facility] 12-25-2023 08:53-0400 Respiratory rate 16 /min NA Durbin PA-C Work Phone: [facility] 12-25-2023 08:53-0400 SaO2% (BldA) [Mass fraction] 95 % NA Durbin PA-C Work Phone: [facility] 12-25-2023 08:53-0400 Systolic blood pressure 120 mm[Hg] NA Durbin PA-C Work Phone: [facility] 09-25-2023 09:07-0500 Body weight 72.12 kg NA Durbin PA-C Work Phone: [facility] 09-25-2023 09:07-0500 Diastolic blood pressure 62 mm[Hg] NA Durbin PA-C Work Phone: [facility] 09-25-2023 09:07-0500 Heart rate 66 /min NA Durbin PA-C Work Phone: [facility] 09-25-2023 09:07-0500 Respiratory rate 16 /min NA Durbin PA-C Work Phone: [facility] 09-25-2023 09:07-0500 SaO2% (BldA) [Mass fraction] 92 % NA Durbin PA-C Work Phone: [facility] 09-25-2023 09:07-0500 Systolic blood pressure 110 mm[Hg] NA Durbin PA-C Work Phone: [facility] 08-04-2023 12:46-0500 SaO2% (BldA) [Mass fraction] 98 % PA NA Durbin PA Work Phone: [facility] 08-04-2023 10:58-0500 Heart rate 75 /min PA NA Durbin PA Work Phone: [facility] 08-04-2023 10:58-0500 Respiratory rate 16 /min PA NA Durbin PA Work Phone: [facility] 08-04-2023 09:00-0500 Body temperature 97.2 [degF] PA NA Durbin PA Work Phone: [facility] 08-04-2023 09:00-0500 Diastolic blood pressure 62 mm[Hg] PA NA Durbin PA Work Phone: [facility] 08-04-2023 09:00-0500 Systolic blood pressure 138 mm[Hg] PA NA Durbin PA Work Phone: [facility] 08-04-2023 07:20-0500 Inhaled oxygen flow rate 4 L/min PA NA Durbin PA Work Phone: [facility] 08-04-2023 03:07-0500 Body mass index (BMI) [Ratio] 22.6 kg/m2 PA NA Durbin PA Work Phone: [facility] 08-04-2023 03:07-0500 Body weight 71.4 kg PA NA Durbin PA Work Phone: [facility] 08-02-2023 13:52-0500 Body height 177.8 cm PA NA Durbin PA Work Phone: [facility] 08-01-2023 20:53-0500 Inhaled oxygen concentration 92 % PA NA Durbin PA Work Phone: [facility] 08-01-2023 16:17-0500 Diastolic blood pressure 76 mm[Hg] [facility] 08-01-2023 16:17-0500 Heart rate 77 /min [facility] 08-01-2023 16:17-0500 SaO2% (BldA) [Mass fraction] 91 % [facility] 08-01-2023 16:17-0500 Systolic blood pressure 150 mm[Hg] [facility] 08-01-2023 16:16-0500 Inhaled oxygen flow rate 5 L/min [facility] 08-01-2023 16:16-0500 Respiratory rate 24 /min [facility] 08-01-2023 12:44-0500 Body height 177.8 cm [facility] 08-01-2023 12:44-0500 Body mass index (BMI) [Ratio] 23.3 kg/m2 [facility] 08-01-2023 12:44-0500 Body temperature 97.9 [degF] [facility] 08-01-2023 12:44-0500 Body weight 73.66 kg [facility] 06-28-2023 08:57-0500 Body weight 70.94 kg NA Durbin PA-C Work Phone: [facility] 06-28-2023 08:57-0500 Diastolic blood pressure 70 mm[Hg] NA Durbin PA-C Work Phone: [facility] 06-28-2023 08:57-0500 Heart rate 60 /min NA Durbin PA-C Work Phone: [facility] 06-28-2023 08:57-0500 Respiratory rate 16 /min NA Durbin PA-C Work Phone: [facility] 06-28-2023 08:57-0500 SaO2% (BldA) [Mass fraction] 97 % NA Durbin PA-C Work Phone: [facility] 06-28-2023 08:57-0500 Systolic blood pressure 122 mm[Hg] NA Durbin PA-C Work Phone: [facility] 05-25-2023 11:07-0400 Body temperature 98.1 [degF] Jair Marvin MD Work Phone: [facility] 05-25-2023 11:07-0400 Body weight 71.67 kg Jair Marvin MD Work Phone: [facility] 05-25-2023 11:07-0400 Diastolic blood pressure 69 mm[Hg] Jair Marvin MD Work Phone: [facility] 05-25-2023 11:07-0400 Heart rate 70 /min Jair Marvin MD Work Phone: [facility] 05-25-2023 11:07-0400 Respiratory rate 18 /min Jair Marvin MD Work Phone: [facility] 05-25-2023 11:07-0400 SaO2% (BldA) [Mass fraction] 93 % Jair Marvin MD Work Phone: [facility] 05-25-2023 11:07-0400 Systolic blood pressure 132 mm[Hg] Jair Marvin MD Work Phone: [facility] 02-08-2023 09:28-0400 Body weight 71.67 kg NA Durbin PA-C Work Phone: [facility] 02-08-2023 09:28-0400 Diastolic blood pressure 80 mm[Hg] NA Durbin PA-C Work Phone: [facility] 02-08-2023 09:28-0400 Heart rate 56 /min NA Durbin PA-C Work Phone: [facility] 02-08-2023 09:28-0400 Respiratory rate 16 /min NA Durbin PA-C Work Phone: [facility] 02-08-2023 09:28-0400 SaO2% (BldA) [Mass fraction] 96 % NA Durbin PA-C Work Phone: [facility] 02-08-2023 09:28-0400 Systolic blood pressure 148 mm[Hg] NA Durbin PA-C Work Phone: [facility] 01-31-2023 10:43-0400 Body temperature 97.9 [degF] Rebekah Athy PA-C Work Phone: [facility] 01-31-2023 10:43-0400 Body weight 73.57 kg Rebekah Athy PA-C Work Phone: [facility] 01-31-2023 10:43-0400 Diastolic blood pressure 86 mm[Hg] Rebekah Athy PA-C Work Phone: [facility] 01-31-2023 10:43-0400 Heart rate 58 /min Rebekah Athy PA-C Work Phone: [facility] 01-31-2023 10:43-0400 Respiratory rate 18 /min Rebekah Athy PA-C Work Phone: [facility] 01-31-2023 10:43-0400 SaO2% (BldA) [Mass fraction] 97 % Rebekah Athy PA-C Work Phone: [facility] 01-31-2023 10:43-0400 Systolic blood pressure 164 mm[Hg] Rebekah Athy PA-C Work Phone: [facility] 11-27-2022 14:57-0400 Body weight 73.03 kg NA Durbin PA-C Work Phone: [facility] 11-27-2022 14:57-0400 Diastolic blood pressure 68 mm[Hg] NA Durbin PA-C Work Phone: [facility] 11-27-2022 14:57-0400 Heart rate 57 /min NA Durbin PA-C Work Phone: [facility] 11-27-2022 14:57-0400 SaO2% (BldA) [Mass fraction] 96 % NA Durbin PA-C Work Phone: [facility] 11-27-2022 14:57-0400 Systolic blood pressure 130 mm[Hg] NA Durbin PA-C Work Phone: [facility] 06-21-2022 23:01-0500 Heart rate 85 /min PA NA Durbin PA Work Phone: [facility] Work Phone: 06-21-2022 23:01-0500 Respiratory rate 15 /min PA NA Durbin PA Work Phone: [facility] Work Phone: 06-21-2022 23:01-0500 SaO2% (BldA) [Mass fraction] 98 % PA NA Durbin PA Work Phone: [facility] Work Phone: 06-21-2022 21:53-0500 Body height 177.8 cm PA NA Durbin PA Work Phone: [facility] Work Phone: 06-21-2022 21:53-0500 Body mass index (BMI) [Ratio] 22.9 kg/m2 PA NA Durbin PA Work Phone: [facility] Work Phone: 06-21-2022 21:53-0500 Body temperature 97.8 [degF] PA NA Durbin PA Work Phone: [facility] Work Phone: 06-21-2022 21:53-0500 Body weight 72.57 kg PA NA Durbin PA Work Phone: [facility] Work Phone: 06-21-2022 21:53-0500 Diastolic blood pressure 80 mm[Hg] PA NA Durbin PA Work Phone: [facility] Work Phone: 06-21-2022 21:53-0500 Systolic blood pressure 166 mm[Hg] PA NA Durbin PA Work Phone: [facility] Work Phone: 02-08-2022 12:26-0400 Body height 177.[address] Brian Mackenzie III Work Phone: [facility] Work Phone: 02-08-2022 12:26-0400 Body mass index (BMI) [Ratio] 23.5 kg/m2 Dr. Brian Mackenzie III Work Phone: [facility] Work Phone: 02-08-2022 12:26-0400 Body weight 74.[address] Brian Mackenzie III Work Phone: [facility] Work Phone: 02-08-2022 12:26-0400 Diastolic blood pressure 69 mm[Hg] Dr. Brian Mackenzie III Work Phone: [facility] Work Phone: 02-08-2022 12:26-0400 Heart rate 56 /min Dr. Brian Mackenzie III Work Phone: [facility] Work Phone: 02-08-2022 12:26-0400 Respiratory rate 16 /min Dr. Brian Mackenzie III Work Phone: [facility] Work Phone: 02-08-2022 12:26-0400 SaO2% (BldA) [Mass fraction] 96 % Dr. Brian Mackenzie III Work Phone: [facility] Work Phone: 02-08-2022 12:26-0400 Systolic blood pressure 125 mm[Hg] Dr. Brian Mackenzie III Work Phone: [facility] Work Phone: 05-31-2017 08:40-0400 BMI (Body Mass Index) 23.11 kg/m2 Quan Mackenzie MD [facility] [employer] Work Phone: 05-31-2017 08:40-0400 Body Temperature 97.9 [degF] Quan Mackenzie MD [facility] [employer] Work Phone: 05-31-2017 08:40-0400 BP Diastolic 70 mm[Hg] Quan Mackenzie MD [facility] [employer] Work Phone: 05-31-2017 08:40-0400 BP Systolic 150 mm[Hg] Quan Mackenzie MD [facility] [employer] Work Phone: 05-31-2017 08:40-0400 Height 182.88 cm Quan Mackenzie MD [facility] [employer] Work Phone: 05-31-2017 08:40-0400 Pulse (Heart Rate) 74 /min Quan Mackenzie MD [facility] [employer] Work Phone: 05-31-2017 08:40-0400 Respiratory Rate 20 /min Quan Mackenzie MD [facility] [employer] Work Phone: 05-31-2017 08:40-0400 Weight 77.29 kg uQan Mackenzie MD [facility] [employer] Work Phone: 05-08-2017 14:55-0400 BMI (Body Mass Index) 23.08 kg/m2 Quan Mackenzie MD [facility] [employer] Work Phone: 05-08-2017 14:55-0400 Body Temperature 97.5 [degF] Quan Mackenzie MD [facility] [employer] Work Phone: 05-08-2017 14:55-0400 BP Diastolic 76 mm[Hg] Quan Mackenzie MD [facility] [employer] Work Phone: 05-08-2017 14:55-0400 BP Systolic 175 mm[Hg] Quan Mackenzie MD [facility] [employer] Work Phone: 05-08-2017 14:55-0400 Height 182.88 cm Quan Mackenzie MD [facility] [employer] Work Phone: 05-08-2017 14:55-0400 Pulse (Heart Rate) 67 /min Quan Mackenzie MD [facility] [employer] Work Phone: 05-08-2017 14:55-0400 Respiratory Rate 20 /min Quan Mackenzie MD [facility] [employer] Work Phone: 05-08-2017 14:55-0400 Weight 77.2 kg Quan Mackenzie MD [facility] [employer] Work Phone: Encounters Encounter Date Encounter Type Care Provider Facility Start: 02-08-2025 Evaluation and manag ement of inpatient Dr. Janice Sanford MD -[facility] Work Phone: Start: 02-08-2025 Non-patient / Non-visit Dr. Gini Sanford MD -[facility] Work Phone: Start: 10-31-2024 End: 10-31-2024 Telephone encounter Brigitte Segal SIGNAL OPERATOR LINGUIST.ADMIN ASSISTANT Work Phone: [facility] Comment on above: [id number]; Initial Consu lt Start: 10-31-2024 ambulatory Brigitte Jacky Facil ity:[facility] Start: 10-27-2024 End: 10-27-2024 Telephone encounter Brigitte Segal SIGNAL OPERATOR LINGUIST.ADMIN ASSISTANT Work Phone: [facility] Comment on above: Orders; patient POC Start: 10-16-2024 End: 10-16-2024 Patient encounter procedure Kalyn DALY -[facility] Work Phone: Start: 10-16-2024 End: 10-16-2024 ambulatory Brigitte Segal Facility:[facility] Start: 10-15-2024 End: 10-30-2024 Telephone encounter Brigitte Segal APRN.ADMIN ASSISTANT Work Phone: [facility] Comment on above: Patient Update Start: 10-03-2024 End: 10-03-2024 Telephone encounter Brigitte Segal APRN.ADMIN ASSISTANT Work Phone: [facility] Comment on above: Oxygen; FYI-No Actio n Needed (/) Start: 09-19-2024 End: 09-19-2024 ambulatory BRIGITTE SEGAL Facility:[facility] Start: 09-19-2024 End: 09-19-2024 Office outpatient visit 25 minutes Brigitte Segal APRN.ADMIN ASSISTANT Work Phone: [facility] Comment on above: Chronic insomnia (Pr imary Dx); Benign prostatic hyperplasia with nocturia; Screening for depression; Hyperlipidemia LDL goal <100; Essential hypertension, benign; Parkinson's disease without dyskinesia, unspecified whether manifestations fluctuate (HCC); 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; Acute respiratory failure with hypoxia (HCC) Start: 09-19-2024 End: 09-19-2024 Telephone encounter Brigitte Segal APRN.ADMIN ASSISTANT Work Phone: [facility] Comment on above: Home Health PT Plan of Care Start: 09-17-2024 End: 09-22-2024 Telephone encounter Brigitte Segal APRN.ADMIN ASSISTANT Work Phone: [facility] Comment on above: [facility] Plan of Care Start: 09-15-2024 End: 09-15-2024 Telephone encounter Brigitte Segal APRN.ADMIN ASSISTANT [facility] Comment on above: [facility] Health Orders Start: 09-15-2024 Non-patient / Non-visit Dr. John Soliz MD -[facility] Work Phone: Start: 09-14-2024 Non-patient / Non-visit Dr. Lester Eduardo [facility] Work Phone: Start: 09-13-2024 Non-patient / Non-visit Dr. Lester Eduardo [facility] Work Phone: Start: 09-12-2024 Non-patient / Non-visit Dr. Lester Eduardo [facility] Work Phone: Start: 09-11-2024 Non-patient / Non-visit Dr. Lester Eduardo [facility] Work Phone: Start: 09-10-2024 Non-patient / Non-visit Dr. Lester Eduardo [facility] Work Phone: Start: 09-09-2024 End: 09-09-2024 Telephone encounter Brigitte Segal SIGNAL OPERATOR LINGUIST.ADMIN ASSISTANT Work Phone: [facility] Start: 09-09-2024 Non-patient / Non-visit Dr. Lester Eduardo [facility] Work Phone: Start: 09-08-2024 ambulatory Brigitte Segal Facil ity:[facility] Start: 09-08-2024 Non-patient / Non-visit [facility]. Pederson [facility] Start: 09-08-2024 Non-patient / Non-visit Dr. Lester Eduardo [facility] Work Phone: Start: 09-07-2024 Non-patient / Non-visit Dr. Jerrell badillo OR -[facility] Work Phone: Start: 09-07-2024 ambulatory Lester Perdomo Facility:[facility] Start: 09-07-2024 End: 09-15-2024 Evaluation and management of inpatient Jerrell Faith Facility:[facility] Start: 03-27-2024 End: 03-27-2024 ambulatory BRIGITTE SEGAL Facility:[facility] Start: 03-27-2024 End: 03-27-2024 Office outpatient visit 15 minutes Brigitte A Suppan SIGNAL OPERATOR LINGUIST.ADMIN ASSISTANT Work Phone: [facility] Comment on above: S/P primary angiopla sty with coronary stent; PAD (peripheral artery disease) (HCC); Hyperlipidemia LDL goal <100; Anxiety state; Benign prostatic hyperplasia with nocturia; Essential hypertension, benign; Left sided abdominal pain Start: 03-13-2024 Refill Radha KING-C Work Phone: [facility] Comment on above: Refill Request Start: 02-28-2024 ambulatory Radha KING Fac ility:[facility] Start: 02-26-2024 Telephone encounter Brigitte A Suppan SIGNAL OPERATOR LINGUIST.ADMIN ASSISTANT Work Phone: [facility] Start: 02-25-2024 End: 02-25-2024 ambulatory BRIGITTE A SUPPAN Facility:[facility] Start: 02-25-2024 End: 02-25-2024 Office outpatient visit 15 minutes Brigitte A Suppan SIGNAL OPERATOR LINGUIST.ADMIN ASSISTANT Work Phone: [facility] Comment on above: Left sided abdominal pain (Primary Dx); Essential hypertension, benign Start: 02-19-2024 End: 02-19-2024 ambulatory Radha KING Facility:[facility] Start: 02-09-2024 End: 02-09-2024 Emergency department patient visit Radha KING Facility:[facility] Start: 12-31-2023 Refill Radha KENNEDYC Work Phone: [facility] Comment on above: Refill Request Start: 12-28-2023 Telephone encounter Walter Gomez MD Work Phone: [facility] Comment on above: Results Start: 12-27-2023 End: 12-27-2023 ambulatory CASPER DURBIN Facility:[facility] Start: 12-25-2023 End: 12-25-2023 ambulatory CASPER DURBIN Facility:[facility] Start: 12-25-2023 End: 12-25-2023 Patient encounter procedure Radha Durbin PA-C Work Phone: [facility] Comment on above: Coronary artery dise ase involving ekwok coronary artery of ekwok heart without angina pectoris (Primary Dx); S/P [...] disorder, mild, abuse Start: 12-13-2023 Refill Radha KINGBetify Work Phone: [facility] Comment on above: Refill Request Start: 09-25-2023 End: 09-25-2023 Patient encounter procedure Radha Durbin PA-C Work Phone: [facility] Comment on above: Coronary artery dise ase involving ekwok coronary artery of ekwok heart without angina pectoris; S/P primary angioplasty [...] Non-patient / Non-visit CHRISTINE KING Work Phone: [facility] Work Phone: Start: 08-03-2023 Non-patient / Non-visit CHRISTINE KING Work Phone: [facility] Work Phone: Start: 08-02-2023 Non-patient / Non-visit CHRISTINE KING Work Phone: [facility] Work Phone: Start: 08-01-2023 End: 08-04-2023 Evaluation and management of inpatient CHRISTINE NANDA Ramakrishna PA Work Phone: [facility] Work Phone: Start: 08-01-2023 Evaluation and manag ement of inpatient [facility] Work Phone: Start: 07-10-2023 Refill Radha Salgado on PA-C Work Phone: [facility] Comment on above: Refill Request Start: 07-02-2023 Telephone encounter Radha Durbin PA-C Work Phone: [facility] Start: 06-28-2023 End: 06-28-2023 Patient encounter procedure Radha Durbin PA-C Work Phone: [facility] Comment on above: Coronary artery dise ase involving ekwok coronary artery of ekwok heart without angina pectoris (Primary Dx); S/P primary angioplasty with coronary stent; Angina pectoris ([facility]); Atherosclerosis of aorta ([facility]); Essential hypertension, benign; Hyperlipidemia LDL goal <100; PAD (peripheral artery disease) ([facility]); Parkinson's disease without dyskinesia, with fluctuating manifestations; Hyperbilirubinemia; Gastroesophageal reflux disease, unspecified whether esophagitis present; Benign prostatic hyperplasia with nocturia; Anxiety state; Diarrhea, unspecified type Start: 06-18-2023 Refill Radha Salgado on PA-C Work Phone: [facility] Comment on above: Refill Request Start: 05-25-2023 End: 05-25-2023 Patient encounter procedure Jair Marvin MD Work Phone: [facility] Comment on above: Abrasion of anterior right lower leg, initial encounter (Primary Dx) Start: 05-14-2023 Telephone encounter Radha Salgadoon PA-C Work Phone: [facility] Comment on above: Results Start: 05-11-2023 Telephone encounter Radha Durbin PA-C Work Phone: [facility] Comment on above: Results Start: 05-11-2023 End: 05-11-2023 Subsequent hospital visit by physician Nasrin [facility] ([facility]) Work Phone: Cat Scan Comment on above: Atherosclerosis of a ken (HCC) [I70.0] Start: 02-08-2023 End: 02-08-2023 Patient encounter procedure Radha Justin Durbin PA-C Work Phone: [facility] [place] Comment on above: Piriformis syndrome, left (Primary Dx); Somatic dysfunction of left sacroiliac joint Start: 01-31-2023 End: 01-31-2023 Subsequent hospital visit by physician Xr [facility] [place] Work Phone: Radiology Comment on above: Back pain of lumbar region with sciatica [M54.40] Start: 01-31-2023 End: 01-31-2023 Patient encounter procedure Rebekah KENNEDYC Work Phone: [facility] Comment on above: Back pain of lumbar region with sciatica (Primary Dx) Start: 01-12-2023 Refill Walter Gomez MD Work Phone: [facility] [place] Comment on above: Refill Request Start: 11-30-2022 Telephone encounter Radha Justin Durbin PA-C Work Phone: [facility] [place] Comment on above: Results Start: 11-27-2022 End: 11-27-2022 Patient encounter procedure Radha Justin KENNEDYC Work Phone: [facility] [place] Comment on above: S/P primary angiopla sty with coronary stent (Primary Dx); PAD (peripheral artery disease) ([facility]); Hyperlipidemia LDL goal <100; Essential hypertension, benign; Angina pectoris ([facility]); Parkinson's disease ([facility]); Gastroesophageal reflux disease, unspecified whether esophagitis present; Iron deficiency anemia due to chronic blood loss; Benign prostatic hyperplasia with nocturia; Restless legs syndrome; Anxiety state; Elevated PSA; Chronic insomnia Start: 08-07-2022 Refill Radha benjamin PA-C Work Phone: [facility] [place] Comment on above: Refill Request Start: 07-07-2022 Refill Radha benjamin PA-C Work Phone: [facility] Comment on above: Refill Request Start: 06-21-2022 End: 06-21-2022 Emergency department patient visit CHRISTINE KING Work Phone: [facility] Start: 04-10-2022 Refill Radha Salgado on PA-C Work Phone: [facility] Comment on above: Refill Request Start: 02-27-2022 Non-patient / Non-visit Dr. Fr georgina Mackenzie III Work Phone: [facility] Start: 02-27-2022 End: 02-27-[address] Brian Mackenzie III Work Phone: [facility] Start: 02-08-2022 End: 02-08-[address] Brian Mackenzie III Work Phone: [facility] Start: 01-09-2022 Refill Radha Salgado on PA-C Work Phone: [facility] Comment on above: Refill Request Procedures Date Procedure Procedure Detail Performing Clinician Start: 02-08-2025 Estimated creatinine clearance Brigitte Segal SUPPLY CHAIN ANALYST Work Phone: Start: 02-08-2025 Serum inorganic phos phate measurement Brigitte Segal SUPPLY CHAIN ANALYST Work Phone: Start: 09-19-2024 Adult depression scr eening assessment Brigitte Segal SIGNAL OPERATOR LINGUIST.ADMIN ASSISTANT Work Phone: Start: 09-14-2024 Estimated creatinine clearance [...] primary angioplasty with coronary stent Brigitte Segal SIGNAL OPERATOR LINGUIST.ADMIN ASSISTANT Work Phone: Plan of Treatment Date Care Activity Detail Author Start: 02-24-2027 Diabetes Screening Diabetes Screening [facility] Start: 12-26-2026 Diabetes Screening Diabetes Screening [facility] Start: 06-28-2026 Diabetes Screening Diabetes Screening [facility] Start: 05-10-2026 Urine microalbumin profile [facility] Start: 11-29-2025 DIABETES SCREEN DIABETES SCREEN [facility] Start: 11-29-2025 Diabetes Screening Diabetes Screening [facility] Start: 09-19-2025 Depression Screening Depression Screening [facility] Start: 03-19-2025 End: 03-19-2025 Patient encounter procedure 03/19/2025 10:40 AM EDT Office Visit [facility] [place] [address] [place] [address] Brigitte Segal APRN.ADMIN ASSISTANT [address] [place] [address] 6 month exam [facility] [place] Comment on above: 6 month exam Start: 02-09-2025 CT of thorax with contrast Chest WITH Contrast [facility] Start: 02-09-2025 Thyroid stimulating hormone measurement [facility] Start: 02-08-2025 End: 02-08-2025 [facility] Start: 02-08-2025 Application of intermittent pneumatic compression device [facility] Start: 02-08-2025 Following clinical pathway protocol [facility] Start: 02-08-2025 Aspiration precautions [facility] Start: 02-08-2025 Assessment of risk of venous thromboembolism [facility] Start: 02-08-2025 Cardiac monitoring [facility] Start: 02-08-2025 Catheterization of vein [facility] Start: 02-08-2025 Consultation [facility] Start: 02-08-2025 Continuous pulse oximetry [facility] Start: 02-08-2025 Elevation of head of bed [facility] Start: 02-08-2025 Exercises [facility] Start: 02-08-2025 Incentive spirometry [facility] Start: 02-08-2025 Inhalation therapy procedure [facility] Start: 02-08-2025 Insertion of catheter into peripheral vein [facility] Start: 02-08-2025 Introduction of urinary catheter [facility] Start: 02-08-2025 Measuring intake and output [facility] Start: 02-08-2025 Notification of physician [facility] Start: 02-08-2025 Oxygen therapy [facility] Start: 02-08-2025 Patient referral to dietitian [facility] Start: 02-08-2025 Providing care according to standard [facility] Start: 02-08-2025 Provision of activity privileges [facility] Start: 02-08-2025 Referral to occupational therapist [facility] Start: 02-08-2025 Referral to service [facility] Start: 02-08-2025 Speech therapy assessment [facility] Start: 02-08-2025 Telemedicine consultation with patient [facility] Start: 02-08-2025 Tobacco use cessation education [facility] Start: 02-08-2025 End: 02-08-2025 [facility] Start: 02-08-2025 MRI of brain with contrast Brain W/WO Contrast [facility] Start: 02-08-2025 Verification routine [facility] Start: 02-08-2025 Admission procedure [facility] Start: 01-26-2025 [facility] on above: Postponed from 03/30/2024 (Declined at t his time) Start: 12-26-2024 Hepatitis B surface antibody level LDL Cholesterol [facility] Start: 12-24-2024 Covid-19 Vaccine ( season) Covid-19 Vaccine () [facility] Comment on above: Postponed from 08/31/2023 (Declined at t his time) Start: 12-24-2024 DIABETES SCREEN DIABETES SCREEN [facility] Start: 10-20-2024 End: 10-20-2024 Patient encounter procedure 10/20/2024 10:00 AM EDT Office Visit [facility] [address] [place] [address] Brigitte Segal SIGNAL OPERATOR LINGUIST.ADMIN ASSISTANT [address] [place], [place] [address] follow up [facility] Comment on above: follow up Start: 09-19-2024 End: 09-19-2024 Patient encounter procedure 09/19/2024 2:40 PM EST Office Visit Family [facility] [address], [place] [id number] Brigitte Segal, SIGNAL OPERATOR LINGUIST.ADMIN ASSISTANT [address] [place], [place] [id number] follow up [facility] for hypoxia [facility] [place] Comment on above: follow up [facility] for hypoxia Start: 09-15-2024 Referral to service [facility] Start: 09-15-2024 Patient discharge [facility] Start: 09-08-2024 Referral to occupational therapist [facility] Start: 09-08-2024 Referral to service [facility] Start: 09-08-2024 Physiotherapy of chest [facility] Start: 09-07-2024 Following clinical pathway protocol [facility] Start: 09-07-2024 Ambulation without limitation [facility] Start: 09-07-2024 Assessment of risk of venous thromboembolism [facility] Start: 09-07-2024 Catheterization of vein [facility] Start: 09-07-2024 Inhalation therapy procedure [facility] Start: 09-07-2024 Insertion of catheter into peripheral vein [facility] Start: 09-07-2024 Measuring intake and output [facility] Start: 09-07-2024 Providing care according to standard [facility] Start: 09-07-2024 Provision of activity privileges [facility] Start: 09-07-2024 [facility] Start: 09-07-2024 Admission procedure [facility] Start: 09-07-2024 Oxygen therapy [facility] Start: 09-07-2024 [facility] Start: 09-07-2024 Continuous positive airway pressure ventilation treatment [facility] Start: 09-07-2024 Patient referral to dietitian [facility] Start: 07-30-2024 Advance Directive Discussion Advance Directive Discussion [facility] Start: 07-01-2024 End: 07-01-2024 Patient encounter procedure 07/01/2024 9:00 AM EST Office Visit Family [facility] [address] [place] [address] Radha Durbin PA-C [address] [place] [address] 6 month follow up [facility] Comment on above: 6 month follow up Start: 03-30-2024 Covid-19 Vaccine () Covid-19 Vaccine () [facility] Start: 03-30-2024 Covid-19 Vaccine ( season) Covid-19 Vaccine () [facility] Start: 03-30-2024 Influenza vaccination Influenza Vaccine (#1) [place] [facility] Start: 03-27-2024 End: 03-27-2024 Patient encounter procedure 03/27/2024 8:00 AM EDT Office Visit [facility] [address] [place] [address] Brigitte Segal APRN.ADMIN ASSISTANT [address] [place] [address] 1 month abdominal pain f/u [facility] [place] Comment on above: 1 month abdominal pain f/u Start: 02-25-2024 End: 05-26-2024 Amylase [Enzymatic activity/volume] in Serum or Plasma [facility] Comment on above: Expected: 02/25/2024, Expires: 4 Start: 02-25-2024 End: 05-26-2024 CBC W Auto Differential panel - Blood [facility] Comment on above: Expected: 02/25/2024, Expires: Start: 02-25-2024 End: 05-26-2024 Comprehensive metabolic 2000 panel - Serum or Plasma [facility] Comment on above: Expected: 02/25/2024, Expires: 4 Start: 02-25-2024 End: 05-26-2024 Helicobacter pylori IgG Ab [Presence] in Serum or Plasma by Immunoassay [facility] Work Phone: Comment on above: Expected: 02/25/2024, Expires: 4 Start: 02-25-2024 End: 05-26-2024 Lipase [Enzymatic activity/volume] in Serum or Plasma [facility] Comment on above: Expected: 02/25/2024, Expires: 4 Start: 02-09-2024 COVID-19 VACCINE (4 - Pfizer series) COVID-19 VACCINE (4 - Pfizer series) [facility] Comment on above: Postponed from 07/13/2021 (Declined at t his time) Start: 02-09-2024 SHINGRIX VACCINE (1 of 2) SHINGRIX VACCINE (1 of 2) [facility] Comment on above: Postponed from 11/04/1987 (Declined at t his time) Start: 12-25-2023 End: 12-25-2023 Patient encounter procedure 12/25/2023 9:00 AM EDT Office Visit [facility] [place] [address], [place] [address] Radha Durbin PA-C [address] [place] [address] 3 month follow up [facility] [place] Comment on above: 3 month follow up Start: 12-24-2023 End: 03-24-2024 CBC W Auto Differential panel - Blood COMPLETE BLOOD COUNT AND DIFFERENTIAL Lab Routine 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 Essential hypertension, benign Hyperlipidemia LDL goal <100 Gastroesophageal reflux disease, unspecified whether esophagitis present Anxiety state Expected: 12/24/2023, Expires: 03/24/2024 [facility] Work Phone: Comment on above: Expected: 12/24/2023, Expires: Start: 12-24-2023 End: 03-24-2024 Comprehensive metabolic 2000 panel - Serum or Plasma COMPREHENSIVE METABOLIC PANEL Lab Routine 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 Essential hypertension, benign Hyperbilirubinemia Gastroesophageal reflux disease, unspecified whether esophagitis present Anxiety state Expected: 12/24/2023, Expires: 03/24/2024 [facility] Comment on above: Expected: 12/24/2023, Expires: Start: 12-24-2023 End: 03-24-2024 Lipid 1996 panel - Serum or Plasma LIPID PANEL BASIC Lab Routine 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 Atherosclerosis of aorta (HCC) Hyperlipidemia LDL goal <100 Expected: 12/24/2023, Expires: 03/24/2024 [facility] Comment on above: Expected: 12/24/2023, Expires: Start: 12-24-2023 End: 08-26-2024 Magnesium [Mass/volume] in Serum or Plasma MAGNESIUM Lab Routine 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 Current use of proton pump inhibitor Expected: 12/24/2023, Expires: 03/24/2024 [facility] Comment on above: Expected: 12/24/2023, Expires: Start: 11-30-2023 Hepatitis B surface antibody level LDL CHOLESTEROL [facility] Start: 08-31-2023 Covid-19 Vaccine () Covid-19 Vaccine () [facility] Start: 08-04-2023 Patient discharge [facility] Start: 08-04-2023 [facility] Start: 08-03-2023 Physiotherapy of chest [facility] Start: 08-01-2023 Elevation of head of bed [facility] Start: 08-01-2023 Patient education [facility] Start: 08-01-2023 [facility] Start: 08-01-2023 Following clinical pathway protocol [facility] Start: 08-01-2023 Oxygen therapy [facility] Start: 08-01-2023 Admission procedure [facility] Start: 08-01-2023 Provision of activity privileges [facility] Start: 08-01-2023 Assessment of risk of venous thromboembolism [facility] Start: 08-01-2023 Insertion of catheter into peripheral vein [facility] Start: 08-01-2023 Measuring intake and output [facility] Start: 08-01-2023 Providing care according to standard [facility] Start: 08-01-2023 End: 08-01-2023 Referral to service [facility] Start: 08-01-2023 [facility] Start: 08-01-2023 Hospital admission, emergency, from emergency room, medical nature [facility] Start: 08-01-2023 Inhalation therapy procedure [facility] Start: 07-30-2023 Advance Directive Discussion Advance Directive Discussion [facility] Start: 07-30-2023 Behavioral Health Screening Behavioral Health Screening [facility] Start: 07-30-2023 Depression Assessment Depression Assessment [facility] Start: 07-29-2023 DEPRESSION ASSESSMENT DEPRESSION ASSESSMENT [facility] Comment on above: Postponed from 07/30/2022 (Declined at t his time) Start: 03-30-2023 Influenza vaccination [facility] Start: 12-24-2022 Hepatitis B surface antibody level LDL CHOLESTEROL [facility] Start: 12-19-2022 SHINGRIX VACCINE (1 of 2) SHINGRIX VACCINE (1 of 2) [facility] Comment on above: Postponed from 11/04/1987 (Insurance Cov erage) Start: 11-27-2022 End: 01-27-2023 CBC panel - Blood by Automated count CBC Lab Routine S/P primary angioplasty with coronary stent Expected: 11/27/2022, Expires: 01/27/2023 [facility] Work Phone: Comment on above: Expected: 11/27/2022, Expires: 3 Start: 11-27-2022 End: 01-27-2023 Comprehensive metabolic 2000 panel - Serum or Plasma COMP METABOLIC PANEL Lab Routine S/P primary angioplasty with coronary stent Expected: 11/27/2022, Expires: 01/27/2023 [facility] Work Phone: Comment on above: Expected: 11/27/2022, Expires: 3 Start: 11-27-2022 End: 01-27-2023 Lipid 1996 panel - Serum or Plasma LIPID PANEL BASIC Lab Routine S/P primary angioplasty with coronary stent Expected: 11/27/2022, Expires: 01/27/2023 [facility] Work Phone: Comment on above: Expected: 11/27/2022, Expires: 3 Start: 11-27-2022 End: 01-27-2023 Prostate specific Ag [Mass/volume] in Serum or Plasma PSA/PROSTSPECAG DIAG Lab Routine Elevated PSA Expected: 11/27/2022, Expires: 01/27/2023 [facility] Work Phone: Comment on above: Expected: 11/27/2022, Expires: 3 Start: 07-30-2022 ADVANCE DIRECTIVE DISCUSSION ADVANCE DIRECTIVE DISCUSSION [facility] Start: 07-30-2022 DEPRESSION ASSESSMENT DEPRESSION ASSESSMENT [facility] Start: 03-30-2022 Influenza vaccination INFLUENZA (#1) [facility] Start: 02-08-2022 Patient referral [facility] Work Phone: Start: 09-18-2021 COVID-19 VACCINE (4 - Booster for Pfizer series) COVID-19 VACCINE (4 - Booster for Pfizer series) [facility] Start: 07-30-2021 DEPRESSION ASSESSMENT DEPRESSION ASSESSMENT [facility] Start: 07-13-2021 COVID-19 VACCINE (4 - Booster for Pfizer series) COVID-19 VACCINE (4 - Booster for Pfizer series) [facility] Start: 05-31-2017 End: 05-31-2017 Appointment Appointment [facility] [employer] Work Phone: Start: 05-22-2017 End: 05-22-2017 Appointment Appointment [facility] [employer] Work Phone: Start: 05-08-2017 End: 05-08-2017 Appointment Appointment [facility] [employer] Work Phone: Start: 05-08-2017 End: 05-08-2017 Arterial exam Arterial exam [facility] [employer] Work Phone: Start: 05-08-2017 End: 05-08-2017 N-invas physiologic std lxtr art compl bi PVR with exercise [facility] [employer] Work Phone: Start: 2012 RSV Vaccine (1 - 1-dose 75+ series) RSV Vaccine (1 - 1-dose 75+ series) [facility] Start: 1997 RSV Vaccine (1 - 1-dose 60+ series) RSV Vaccine (1 - 1-dose 60+ series) [facility] Start: 11-04-1987 SHINGRIX VACCINE (1 of 2) SHINGRIX VACCINE (1 of 2) [facility] Start: [birth year]-04-1955 Depression Screening Depression Screening [facility] Alanine aminotransfe rase [Enzymatic activity/volume] in Serum or Plasma [facility] Albumin [Mass/volume ] in Serum or Plasma [facility] Alkaline phosphatase [Enzymatic activity/volume] in Serum or Plasma [facility] Anion gap in Serum o r Plasma [facility] Bilirubin, total measurement [facility] BUN/Creatinine ratio [facility] Calcium [Mass/volume ] in Serum or Plasma [facility] Carbon dioxide, tota l [Moles/volume] in Central venous blood [facility] Cholesterol [Mass/vo lume] in Serum or Plasma [facility] Cholesterol in HDL [Mass/volume] in Serum or Plasma [facility] Creatinine [Mass/vol ume] in Serum or Plasma [facility] Cyclic citrullinated peptide IgG Ab [Units/volume] in Serum or Plasma [facility] Cytoplasmic ANCA Screen [facility] Erythrocyte mean corpuscular volume determination [facility] Glucose [Mass/volume ] in Serum or Plasma [facility] Hematocrit [Volume Fraction] of Blood [facility] Hemoglobin [Mass/vol ume] in Blood [facility] Hemoglobin A1c/Hemoglobin.total in Blood [facility] Leukocytes [#/volume ] in Blood [facility] Low density lipoprot ein cholesterol measurement [facility] Mean corpuscular hemoglobin concentration determination [facility] Mean corpuscular hemoglobin determination [facility] Measurement of renal function [facility] Measurement of respiratory function [facility] Neutrophil count [facility] Neutrophil percent differential count [facility] Patient Education ED Epistaxis (Adult) [facility] Work Phone: Patient referral [facility] Work Phone: Platelets [#/volume] in Blood [facility] Potassium measurement [facility] Red blood cell count [facility] Red cell distributio n width determination [facility] Rheumatoid factor [Presence] in Serum [facility] Serum chloride measurement [facility] Sodium measurement [facility] Total cholesterol:HD L ratio measurement [facility] Total protein measurement [facility] Triglycerides measurement [facility] Troponin T.cardiac [Mass/volume] in Serum or Plasma by High sensitivity method [facility] Urea nitrogen [Mass/volume] in Serum or Plasma [facility] VLDL cholesterol measurement [facility] Immunizations Immunization Date Immunization Notes Care Provider Mendoza lee 04-30-2023 COVID-19 vaccine, ag e 12+ yr, season ([employer]) NANDA Durbin PA-C Work Phone: [facility] 04-16-2023 influenza, high dose seasonal, preservative-free NA Udrbin PA-C Work Phone: [facility] 04-16-2023 influenza virus vacc ine, unspecified formulation Brigitte Segal APRN.ADMIN ASSISTANT Work Phone: [facility] 05-16-2022 influenza (HD-IIV4) vaccine, age 65+ yr, high dose, quadrivalent, PF (FLUZONE HIGH-DOSE) Brigitte Segal APRN.ADMIN ASSISTANT Work Phone: [facility] 05-18-2021 COVID-19 vaccine, ag e 12+ yr (PFIZER-BIONTECH - PURPLE TOP) NA Durbin PA-C Work Phone: [facility] 05-18-2021 influenza (HD-IIV4) vaccine, age 65+ yr, high dose, quadrivalent, PF (FLUZONE HIGH-DOSE) NA Durbin PA-C Work Phone: [facility] 05-18-2021 influenza, high dose seasonal, preservative-free NA Durbin PA-C Work Phone: [facility] 11-01-2020 COVID-19 vaccine, ag e 12+ yr (PFIZER-BIONTECH - PURPLE TOP) NA Durbin PA-C Work Phone: [facility] 10-08-2020 COVID-19 vaccine, ag e 12+ yr (PFIZER-BIONTECH - PURPLE TOP) NA Durbin PA-C Work Phone: [facility] 04-26-2020 influenza, high-dose , quadrivalent vaccine (FLUZONE HIGH DOSE QUADRIVALENT) NA Durbin PA-C Work Phone: [facility] 04-13-[address] Brian Mackenzie III Work Phone: [facility] 04-24-2018 influenza, high dose seasonal, preservative-free NA Durbin PA-C Work Phone: [facility] 05-14-2017 influenza, high dose seasonal, preservative-free NA Durbin PA-C Work Phone: [facility] 05-10-2016 pneumococcal conjuga te vaccine, 13 valent NANDA Durbin PA-C Work Phone: [facility] 05-10-2016 tetanus toxoid, redu lane diphtheria toxoid, and acellular pertussis vaccine, adsorbed NA Ramakrishna BIRD Work Phone: [facility] 04-29-[address] Brian Mackenzie III Work Phone: [facility] 03-27-2008 pneumococcal polysaccharide vaccine, 23 valent NANDA Durbin PA-C Work Phone: [facility] Work Phone: Payers Date Payer Category Payer Self-pay [id number] 2017 Medicare ([employer]) PRIMETIM E [id number] 2017 Unknown PRIMETIME PRIMET [place] O POS [id number] 2017-Present [phone] [place] [id number] [facility] [id number] 2017 Unknown PRIMETIME PRIMET [place] POS [id number] 2017-Present [phone] [address] [place] [place] [id number] [facility] [id number] 2009 Unknown [id number] Unknown [id number] 2.16.840.1.604103.3.579. 2.462 Unknown [id number] 2.16.840.1.282062.3.579. 2.462 Unknown [id number] 2.16.840.1.227324.3.579. 2.462 Unknown [id number] 2.16.840.1.475046.3.579. 2.462 Unknown [id number] 2.16.840.1.291300.3.579. 2.462 Unknown [id number] 2.16.840.1.614567.3.579. 2.462 Unknown [id number] 2.16.840.1.546583.3.579. 2.462 Unknown [id number] 2.16.840.1.992897.3.579. 2.462 Unknown [id number] 2.16.840.1.756172.3.579. 2.462 Unknown [id number] 2.16.840.1.103483.3.579. 2.462 Unknown [id number] 2.16.840.1.509056.3.579. 2.462 Unknown [id number] 2.16.840.1.299855.3.579. 2.462 Unknown [id number] 2.16.840.1.152477.3.579. 2.462 Unknown [id number] 2.16.840.1.905744.3.579. 2.462 Unknown [id number] 2.16.840.1.261890.3.579. 2.462 Unknown [id number] 2.16.840.1.491090.3.579. 2.462 Social History Date Type Detail Facility Start: 07-11-2017 End: 02-08-2025 Tobacco smoking status [facility] Ex-smoker [facility] Work Phone: Start: 12-19-2021 End: 09-19-2024 Alcohol intake Current drinker of alcohol (finding) [facility] Start: 1935 Sex Assigned At Not on file C [facility] Start: 12-13-2021 End: 12-23-2021 Exposure to SARS-CoV-2 (event) Not sure [facility] Start: 02-08-2022 End: 08-01-2023 Tobacco smoking status NHIS Unknown if ever smoked [facility] Start: 08-26-2020 [facility] Start: 08-26-2020 None [facility] Start: 08-26-2020 Spouse/ Signif icant Other [facility] Start: 08-26-2020 Non-smoker [facility] Start: 1935 Sex Assigned At Male [facility] History of tobacco use Current smoker [facility] Start: 07-11-2017 End: 11-27-2022 Tobacco use and exposure Smokeless tobacco non-user [facility] Start: 11-27-2022 Tobacco Comment quit 1999 [facility] Start: 12-22-2022 End: 02-08-2023 History of Social function [facility] Start: 12-22-2022 End: 02-08-2023 Tobacco use panel [facility] Adult Depression Screening Assessment 0 [facility] Goals Date Patient Goal Desired Activity /State Functional Status Date Assessment Result Facility 02-08-2025 Functional status Activity Abili ty With Assist of 1 [facility] Work Phone: 09-15-2024 Functional status Chair [facility] Work Phone: 08-04-2023 Functional status Ambulates [facility] Work Phone: 09-21-2017 Are you deaf, or do you have serious difficulty hearing No 09/21/2017 1:31 PM Brian Whitman III, MD No [facility] 09-21-2017 Are you blind, or do you have serious difficulty seeing, even when wearing glasses No 09/21/2017 1:31 PM Brian Whitman III, MD No [facility] 09-21-2017 Do you have serious difficulty walking or climbing stairs No 09/21/2017 1:31 PM Brian Whitman III, MD No [facility] 09-21-2017 Do you have difficul ty dressing or bathing No 09/21/2017 1:31 PM Brian Whitman III, MD No [facility] 09-21-2017 Because of a physica l, mental, or emotional condition, do you have difficulty doing errands alone such as visiting a physician's office or shopping No 09/21/2017 1:31 PM Brian Whitman III, MD No [facility] Mental Status Date Assessment Result Facility 02-08-2025 Cognitive function Voice/Name [facility] Work Phone: 09-15-2024 Cognitive function Voice/Name [facility] Work Phone: 08-03-2023 Cognitive function Voice/Name [facility] Work Phone: 08-01-2023 Cognitive function Level Of Cons ciousness Awake;Alert;Appropriate;Fol lows Commands [facility] Work Phone: 09-21-2017 Because of a physica l, mental, or emotional condition, do you have serious difficulty concentrating, remembering, or making decisions No 09/21/2017 1:31 PM Brian Whitman III, MD [facility] Clinical Notes 08-30-2017 to 02-08-2025 Note Date & Type Note Facility 02-08-2025 History and physical note Note Date/Time February 08, 2025 6:57pm [facility] Medical Records Department [address] [place] [address] H&P Exam - Hospitalist 02/08/25 1845 MR#: [id number] Acct: [id number] Name: CLARK LYLES Rep #:[id number] : 1935 89 From: Janice Sanford MD PCP: Brigitte Segal, SUPPLY CHAIN ANALYST Status:REG ER Location: ED HPI - General [...] HLD,Former tobacco use who presents to the [facility] ED on 02/10/2025 with history of last [...] was deemed not a candidate for tenecteplase. 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 Charges/Coding Visit Charges Inpatient E&M: 77696 Init Hosp L3 Procedures Hospitalists Procedures: 50239 Advncd Care Plan 30 Min 02/08/251848 <Electronically [...] Segal; Dr. Janice Sanford MD ~* Signed [facility] Work Phone: 1(971) 434-271007-13-2025 History and physical note [facility] Medical Records Department [address] [place] [address] H&P Exam - Hospitalist 02/08/251844 MR#: [id number] Acct: [id number] Name: CLARK LYLES Rep #:[id number] : 1935 89 From: Janice Sanford MD PCP: Brigitte Segal, SUPPLY CHAIN ANALYST Status:REG ER Location: ED HPI - General [...] HLD,Former tobacco use who presents to the [facility] ED on 02/10/2025 with history of last [...] was deemed not a candidate for tenecteplase. 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 Charges/Coding Visit Charges Inpatient E&M: 19103 Init Hosp L3 Procedures Hospitalists Procedures: 75110 Advncd Care Plan 30 Min 02/08/25 184 [...] Segal; Dr. Janice Sanford MD ~* Signed [facility]04-04-2025 Telephone encounter Note* Telephone Encounter - Jaqueline Andre RN - 10/31/2024 3:29 PM EDT Palliative Medicine Referral Assessment Referral Accepted: No, Reason for Denial: Chart reviewed, pal med order meant for [facility] in [place]. Jaqueline Andre RN October 31, 2024 [facility]04-04-2025 Miscellaneous Notes* Telephone Encounter - Jaqueline Andre RN - 10/31/2024 3:29 PM EDT Palliative Medicine Referral Assessment Referral Accepted: No, Reason for Denial: Chart reviewed, pal med order meant for [facility] in [place]. Jaqueline Andre RN October 31, 2024 documented in this encounterPark[facility] Health03-31-2025 Telephone encounter Note * Telephone Encounter - [...] on her brothers phone number as well. [facility]03-31-2025 Miscellaneous Notes* Telephone Encounter - Shira Mcgill [...] - 10/27/2024 3:47 PM EDT Rohan with [facility] calls to report family is requesting order for palliative care. Fax order to [facility] in [place]. Rohan also reports he saw pt today and is extending nurse to once a week x 2 weeks. Pt will then be discharged from Nursing. Rohan reports that Pulmonary gave new dx for pt of COPD and pulmonary htn. Amita Kim LPN documented in this encounterParkview Health03-31-2025 Telephone encounter Note * Telephone Encounter - [...] into accepting palliative care. Shira Mcgill RN [facility]03-31-2025 Telephone encounter Note* Telephone Encounter - Brigitte Segal APRN.CNP - 10/27/2024 4:50 PM EDT Please ask patient if he wants a palliative care consult? Palliative care is not end-of-life care but symptom management and chronic disease. Consult placed if patient wishes to be referred. [facility]03-31-2025 Telephone encounter Note* Telephone Encounter - Amita Kim LPN - 10/27/2024 3:47 PM EDT Rohan with [facility] HH calls to report family is requesting order for palliative care. Fax order to [facility] in [place]. Rohan also reports he saw pt today and is extending nurse to once a week x 2 weeks. Pt will then be discharged from Nursing. Rohan reports that Pulmonary gave new dx for pt of COPD and pulmonary htn. Amita Kim LPN [facility]03-20-2025 Evaluation note* Diagnosis Onset Date Resolution Status Admit Date COPD (chronic obstructive pulmonary disease) inactive October 16 12:57pm Pulmonary hypertension inactive [facility] 2024 12:57pm CVA (cerebral vascular accident) acute February 08, 2025 7:47pm [facility] Work Phone: [phone] Telephone encounter Note* Telephone Encounter - Radha Green, ZACKARY - 10/15/2024 3:02 PM EDT Paulino- nurse- [facility]- reports he did patient eval today and will extend HH visits to 1 x week for 2 weeks. Pt is still on 4 L O2 after pneumonia. Pt will see pulm tomorrow. [facility]03-19-2025 Miscellaneous Notes* Telephone Encounter - Radha Green, ZACKARY - 10/15/2024 3:02 PM EDT Pauilno- nurse- [facility]- reports he did patient eval today and will extend [facility] visits to 1 x week for 2 weeks. Pt is still on 4 L O2 after pneumonia. Pt will see pulm tomorrow. documented in this encounterParkview Health03-07-2025 Telephone encounter Note * Telephone Encounter - Shirley Rivera MA - 10/03/2024 3:55 PM EST Detailed message left on secure line for Jamie [facility] Shirley Rivera MA October 03, 2024 3:56 PM [facility]03-07-2025 Miscellaneous Notes* Telephone Encounter - Shirley Rivera MA - 10/03/2024 3:55 PM EST Detailed message left on secure line for Jamie [facility] Shirley Rivera MA October 03, 2024 3:56 PM * Telephone Encounter - Brigitte Segal APRN.CNP - 10/03/2024 2:59 PM EST Yes. Please increase O2 to 4l. Thank you for the recert. * Telephone Encounter - Mary Balderas RN - 10/03/2024 2:49 PM EST Jamie with [facility] is calling due to he [...] called back with information. documented in this encounterParkview Health03-07-2025 Telephone encounter Note * Telephone Encounter - Brigitte Segal APRN.CNP - 10/03/2024 2:59 PM EST Yes. Please increase O2 to 4l. Thank you for the recert. [facility]03-07-2025 Telephone encounter Note* Telephone Encounter - Mary Balderas RN - 10/03/2024 2:49 PM EST Jamie with [facility] is calling due to he [...] advise, Jamie needs called back with information. [facility]02-21-2025 Telephone encounter Note* Telephone Encounter - Brigitte Segal APRN.CNP - 09/19/2024 3:33 PM EST Sounds good. Agree. [facility]02-21-2025 Miscellaneous Notes* Telephone Encounter - Brigitte Segal APRN.CNP - 09/19/2024 3:33 PM EST Sounds good. Agree. * Telephone Encounter - Whit Sheridan RN - 09/19/2024 2:20 PM EST Rohan calling with [facility] Physical Therapy with plan of care for patient. Pt will be seen 1x per week for 4 weeks for functional mobility training. No call back needed if provider agreeable. Whit Sheridan RN documented in this encounterParkview Health02-21-2025 Instructions* Patient Instructions* Brigitte Segal APRN.CNP - 09/19/2024 3:24 PM EST 1) Mirtazapine 7.5 mg at bedtime for sleep 2) Follow up in 6 months documented in this encounterParkview Health02-21-2025 NoteHNO ID: [id number] Author: BRIGITTE SEGAL APRN.CNP Service: ? Author [...] lipoma performed by Dr. Robe Mackenzie at [facility] REVSC OPN/PRQ FEM/POP W/STNT/ANGIOP VSL 03-18-14 RPR [...] 6. Parkinson's disease with (more content not included)...[facility]02-21-2025 History of Present illness Narrative* Brigitte Segal APRN.ADMIN ASSISTANT - 09/19/2024 3:08 PM EST This is [...] lipoma performed by Dr. Robe Mackenzie at [facility] REVSC OPN/PRQ FEM/POP W/STNT/ANGIOP SM VSL 03-18-14 [...] no tremor 7. 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- ICD9: 414.01, ICD10: [...] improvement. Brigitte Segal APRN.JANET documented in this encounterParkview Health02-21-2025 Telephone encounter Note * Telephone Encounter - Whit Sheridan RN - 09/19/2024 2:20 PM EST Rohan calling with [facility] Physical Therapy with plan of care for patient. Pt will be seen 1x per week for 4 weeks for functional mobility training. No call back needed if provider agreeable. Whit Sheridan RN [facility]02-20-2025 Telephone encounter Note* Telephone Encounter - Shirley Rivera MA - 09/18/2024 10:47 AM EST HHN was not at home, just granddaughter. She did report no cough. Pt has appointment with PCP tomorrow. [facility]02-20-2025 Miscellaneous Notes* Telephone Encounter - Shirley Rivera [...] - 09/18/2024 9:50 AM EST Haley from [facility] calls and reports that granddaughter [...] with provider tomorrow 09/19/2024. Please Contact Haley tukr [phone]. Tracy Cedillo RN * Telephone Encounter - [...] 09/17/2024 12:52 PM EST Hellen calling from [facility] to report plan of care for patient and nursing home will visit patient 1 time a week [...] for a week. Patient does not see cvt tech for a month. Hellen did not know if provider wanted to address Oxygen use. Patient is scheduled to see PCP 09/19/2024. No call back needed unless there are questions. Tracy Cedillo RN documented in this encounterParkview Health02-20-2025 Telephone encounter Note * Telephone Encounter - Brigitte Segal APRN.CNP - 09/18/2024 10:41 AM EST Absolutely keep at 3L. Any report on lung sounds? [facility]02-20-2025 Telephone encounter Note* Telephone Encounter - Tracy Cedillo RN - 09/18/2024 9:50 AM EST Haley from [facility] calls and reports that granddaughter [...] provider tomorrow 09/19/2024. Please Contact Haley back [phone]. Tracy Cedillo RN [facility]02-20-2025 Telephone encounter Note* Telephone Encounter - Brigitte Segal APRN.CNP - 09/18/2024 8:08 AM EST Patient will need to stay on oxygen until he follows up with pulmonary. I have not seen him since February 2024 therefore I am not really able to shed any light on his oxygen use. Not common to use oxygen for only a week. [facility]02-19-2025 Telephone encounter Note* Telephone Encounter - Tracy Cedillo RN - 09/17/2024 12:52 PM EST Hellen calling from [facility] to report plan of care for patient and nursing home will visit patient 1 time a week [...] for a week. Patient does not see cvt tech for a month. Hellen did not know if provider wanted to address Oxygen use. Patient is scheduled to see PCP 09/19/2024. No call back needed unless there are questions. Tracy Cedillo RN [facility]02-17-2025 Telephone encounter Note* Telephone Encounter - Brigitte [...] 5 mg daily to 10 mg daily [facility]02-17-2025 Miscellaneous Notes* Telephone Encounter - Brigitte Segal [...] mg daily * Telephone Encounter - Brigitte Segal APRN.CNP - 09/15/2024 4:41 PM EST Yes. Of course * Telephone Encounter - Tracy Cedillo RN - 09/15/2024 3:30 PM EST Rochelle from [facility] calls and states that patient is being discharged from [facility] PCU on 09/05/2024 with the diagnosis of hypoxia and acute respiratory failure. Rochelle asking if provider willing to follow patient with orders for nursing home, physical therapy, occupational therapy and social work. If agreeable please give Rochelle a call back . Thank you, Tracy Cedillo RN documented in this encounterParkview Health02-17-2025 Telephone encounter Note * Telephone Encounter - Brigitte Segal APRN.CNP - 09/15/2024 4:41 PM EST Yes. Of course [facility]02-17-2025 Telephone encounter Note* Telephone Encounter - Tracy Cedillo RN - 09/15/2024 3:30 PM EST Rochelle from [facility] calls and states that patient is being discharged from [facility] PCU on 09/05/2024 with the diagnosis of hypoxia and acute respiratory failure. Rochelle asking if provider willing to follow patient with orders for nursing home, physical therapy, occupational therapy and social work. If agreeable please give Rochelle a call back . Thank you, Tracy Cedillo RN [facility]02-17-2025 [facility] Medical Records Department [address] [place] [address] Discharge Summary 09/15/24 0952 MR#: [id number] Acct: [id number] Name: CLARK LYLES Rep #: [id number] : 1935 88 From: John Soliz MD PCP: MARIANA Humphreys Status:ADM IN [id number] Providers Date of Admission: 09/07/24 Date of [...] 03/17/14 multivitamin 1 ea PO DAILY [facility] 05/16/17 tamsulosin 0.4 mg capsule 0.4 mg [...] Palpation of Joints or (more content not included)...[facility]02-11-2025 Telephone encounter Note* Telephone Encounter - Brigitte Segal APRN.JANET - 09/09/2024 10:00 AM EST Patient was admitted to [facility] on September 07 to 2024 for altered [...] is a DNR CC with no intubation. [facility]02-11-2025 Miscellaneous Notes* Telephone Encounter - Brigitte Segal APRN.CNP - 09/09/2024 10:00 AM EST Patient was admitted to [facility] on September 07 to 2024 for altered [...] CC with no intubation. documented in this encounterParkview Health02-09-2025 Evaluation note* Diagnosis Onset Date Resolution Status Admit Date Hypoxia inactive September 07, 2024 12:42pm Pulmonary hypertension acute [facility] 2024 12:57pm COPD (chronic obstructive pulmonary disease) chronic October 16, 025 12:57pm [facility] Work Phone: [phone] Instructions* Patient Instructions* Brigitte Segal APRN.CNP - 03/27/2024 8:18 AM EDT 1) eliminate omeprazole but continue pantoprazole 2) discontinue trazodone, replaced with Tylenol PM 3) follow up in as scheduled documented in this encounterParkview Health08-29-2024 NoteHNO ID: [id number] Author: BRIGITTE SEGAL APRN.CNP Service: ? Author [...] lipoma performed by Dr. Robe Mackenzie at [facility] 03-18-14: REVSC OPN/PRQ FEM/POP W/STNT/ANGIOP SM VSL [...] - Controlled - Counse (more content not included)...[facility]08-29-2024 History of Present illness Narrative* Brigitte Segal APRN.ADMIN ASSISTANT - 03/27/2024 8:03 AM EDT This is [...] lipoma performed by Dr. Robe Mackenzie at [facility] 03-18-14: REVSC OPN/PRQ FEM/POP W/STNT/ANGIOP SM VSL [...] improvement. Brigitte Segal APRN.CNP documented in this encounterParkview Health08-15-2024 Telephone encounter Note * Telephone Encounter - [...] Velez LPN March 13, 2024 10:13 AM [facility]08-15-2024 Miscellaneous Notes* Telephone Encounter - Renetta Velez [...] 13, 2024 10:13 AM documented in this encounterParkview Health07-30-2024 Telephone encounter Note * Telephone Encounter - Shirley Rivera MA - 02/26/2024 8:28 AM EDT Patient was made aware of the results. Patient verbalizes understanding. Shirley Rivera Ma [facility]07-30-2024 Miscellaneous Notes* Telephone Encounter - Shirley Rivera [...] does on the pantoprazole. documented in this encounterParkview Health07-30-2024 Telephone encounter Note * Telephone Encounter - Brigitte Segal APRN.CNP - 02/26/2024 8:00 AM EDT Patient does not have MyChart. Please let him know that he was negative for H. pylori the bacteria that causes ulcers. Blood counts are okay, kidney function liver function, and pancreas are all normal. Lets see how he does on the pantoprazole. [facility]07-29-2024 Instructions* Patient Instructions* Brigitte Segal APRN.CNP - 02/25/2024 8:50 AM EDT 1) Check labs 2) Flagyl 500 mg 3 x day 3) Cipro 500 mg 2 x day 4) Start pantoprazole 40 mg daily 5) Follow up in 1 month documented in this encounterParkview Health07-29-2024 NoteHNO ID: [id number] Author: BRIGITTE SEGAL APRN.CNP Service: ? Author [...]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 Bone Tender Relationship Specialty Start Date End Date Brigitte Segal, SIGNAL OPERATOR LINGUIST.ADMIN ASSISTANT [address] [facility] [place] [address] PCP - General Family Medicine 09/08/24 Team Status: Active Member Role Status Dates Brigitte Suppan , SUPPLY CHAIN ANALYST Primary Care Provider Active Team Status: Inactive Member Role Status Dates Dr. Neo Tejeda DO Emergency Provider Active Start: September 07, 2024 End: September 15, 2024 Brigitte Suppan , SUPPLY CHAIN ANALYST Primary Care Provider Active Start: September 07, [...] Start: September 07, 2024 Brigittemillicent Segal , SUPPLY CHAIN ANALYST Primary Care Provider Active Start: September 07, [...] Start: September 08, 2024 Brigitte Segal , SUPPLY CHAIN ANALYST Primary Care Provider Active Start: September 08, [...] Member Role Status Dates Brigitte Segal , SUPPLY CHAIN ANALYST Primary Care Provider Active Start: September 08, 2024 Dr. Dejuan Brooks MD Attending Provider Active S tart: September 08, 2024 Team Status: Active Member Role Status Dates Dr. Neo Tejeda DO Emergency Provider Active Start: September 09, 2024 Brigitte Segal , SUPPLY CHAIN ANALYST Primary Care Provider Active Start: September 09, [...] Start: September 10, 2024 Brigitte Segal , SUPPLY CHAIN ANALYST Primary Care Provider Active Start: September 10, [...] Start: September 11, 2024 Brigitte Segal , SUPPLY CHAIN ANALYST Primary Care Provider Active Start: September 11, [...] Start: September 12, 2024 Brigitte Segal , SUPPLY CHAIN ANALYST Primary Care Provider Active Start: September 12, [...] Start: September 13, 2024 Brigitte Segal , SUPPLY CHAIN ANALYST Primary Care Provider Active Start: September 13, [...] Start: September 14, 2024 Brigitte Segal , SUPPLY CHAIN ANALYST Primary Care Provider Active Start: September 14, [...] Start: September 15, 2024 Brigitte Segal , SUPPLY CHAIN ANALYST Primary Care Provider Active Start: September 15, [...] Member Role Status Dates Brigitte Segal , SUPPLY CHAIN ANALYST Primary Care Provider Active Start: October 16, 2024 End: October 16, 2024 Brigitte Segal , SUPPLY CHAIN ANALYST Referring Provider Active Start: October 16, 2024 End: October 16, 2024 Kalyn Taylor BUSINESS PERFORMANCE ANALYST, BUSINESS PERFORMANCE ANALYST-C Attending Provider Active Start: October 16, 2024 End: October 16, 2024 Team Status: Active Member Role/Relationship Status Dates Brigitte Segal , SUPPLY CHAIN ANALYST Primary Care Provider Active Team Status: Inactive Member Role/Relationship Status Dates Brigitte Huynhchristine , SUPPLY CHAIN ANALYST Primary Care Provider Active Start: October 16, 2024 End: October 16, 2024 Brigitte Huynhchristine , SUPPLY CHAIN ANALYST Referring Provider Active Start: October 16, 2024 End: October 16, 2024 Kalyn Taylor BUSINESS PERFORMANCE ANALYST, BUSINESS PERFORMANCE ANALYST-C Attending Provider Active Start: October 16, 2024 End: October 16, 2024 Team Status: Active Member Role/Relationship Status Dates Brigittecolette Segal , SUPPLY CHAIN ANALYST Primary Care Provider Active Start: February 08, 2025 Ed Physician Provider Emergency Provider Active Start: February 08, 2025 Dr. Janice Sanford MD Attending Provider Active Start: February 08, 2025 Team Status: Active Member Role/Relationship Status Dates Brigittecolette Segal , SUPPLY CHAIN ANALYST Primary Care Provider Active Start: February 08, [...] section and content) DATE CREATED AUTHOR 10/18/2024 [facility] DATE CREATED AUTHOR AUTHOR'S ORGANIZ ATION 11/02/2024 [facility] DATE CREATED AUTHOR [facility]S ORGANIZ ATION [facility]ORDS PERTAINING TO PATIENTS WHO ARE [...] BE BASED ON THE PRIMARY CLINICAL RECORDS. [facility] [employer] provides no warranty or guarantee of the accuracy or completeness of information in this document.
--- OUTSIDE RECORDS SUMMARY | 2025-02-08 21:17 | XMS RPT_ITS | CCD ---
Author Organization [facility] Care Team Providers Care Enamel Cracker Name Role Phone Quan Mackenzie MD Unavailable [...] Provider CHRISTINE Blount Primary Care Provider [phone] Dr. Becca Nam Attending Provider MD Lewis Sutton Emergency Provider Dr. Jasmine Tan Admit Provider Dr. Jasmine Tan Other Provider Dr. Jerrell Faith Attending Provider Unavailable Dr. Jerrell Faith Other Provider Unavailable Radha Durbin PA-C Primary Care Provider Haagen LAND CLEARER.STRATEGIC DEVELOPMENT MANAGER, Yuliana Unavailable Suppan LAND CLEARER.STRATEGIC DEVELOPMENT MANAGER, Brigitte A Unavailable Suppan LAND CLEARER.STRATEGIC DEVELOPMENT MANAGER, Brigitte A Primary Care Provi emilia Radha [...] Care Unavailable Suppan, Brigitte Referring Unavailable Claudia INSULATION INSPECTOR, Kalyn Attending Unavailable Radha Blount Referring Unavailable Radha Blount Primary Care Unavailable Mary Hill Attending Unavail able Suppan, Brigitte Primary Care Unavailable Taylor INSULATION INSPECTOR, Kalyn Referring Unavailable Taylor INSULATION INSPECTOR, Kalyn Attending Unavailable Haagen LAND CLEARER.STRATEGIC DEVELOPMENT MANAGER, Yuliana Unavailable Suppan LAND CLEARER.STRATEGIC DEVELOPMENT MANAGER, Brigitte A Unavailable [phone] SUPPAN, BRIGITTE A Attending Unavailable DURBINCASPER BENJAMINORY [...] Unavailable Dr. Neo Tejeda DO Emergency Provider [phone] Suppan PAINTER TOUCH UP, Brigitte Primary Care Provider Kittoe MD, Dr. Allan Admit Provider Unavailable Marcell MANUEL, Dr. Allan Other Provider Unavailable Martínez MANUEL, Dr. Loepz Attending Provider Leanne PEDERSON, Dr. Batista Other Provider Marcell MANUEL, Dr. Allan Attending Provider Unavaila ble Leanne PEDERSON, Dr. Batista Attending Provider Todd MANUEL, Dr. Zaidi Attending Provider [phone] Martínez MANUEL, Dr. Lopez Other Provider Suppan PAINTER TOUCH UP, Brigitte Referring Provider Claudia INSULATION INSPECTOR-CKalyn Attending Provider Suppan PAINTER TOUCH UP, Brigitte Primary Care Provider Provider, Ed Physician Emergency Provider Dimitris Sanford MD, Dr. Janice Hillman Attending Provider Dr. Shahab Teixeira DO Emergency Provider Juvenal MANUEL, Dr. Janice Hillman Admit Provider Allergies Allergy Classification Reported Allergen(s) Allergy Type Date of Onset Reaction(s) Facility (20 sources) lisinopril; Translations: [LISINOPRIL] Drug Allergy 0 Cough [facility] Work Phone: Comment on above: cough (6 sources) sulfADIAZINE Drug Allergy 7 [facility] Work Phone: (20 sources) Sulfonamides (Antibiotic); Translations: [SULFA (SULFONAMIDE ANTIBIOTICS)] Drug Allergy 6 [facility] (5 sources) Sulfonamides (Antibiotic) Allergy to substance 2 Rash [facility] (1 source) Lisinopril Drug Allergy 5 [facility] (1 source) Sulfonamides (Antibiotic) Drug allergy (disorder) 5 [facility] Medications Current Medications Medication Drug Class(es) [...] LDL goal , PAD (peripheral artery disease) ([facility]) Take 1 tablet by mouth once daily. [...] LDL goal , PAD (peripheral artery disease) ([facility]) Take 1 tablet by mouth once daily. [...] tablets by mouth once daily. lactobacillus acidophilus [id number] unt oral capsule (20 sources) Start: 08-04-2023 [...] NMA PO DAILY May 16, 2017 12:00am [facility] Start: 05-16-2017 Multivitamin 1 EACH tablet Active [...] DAILY September 07, 2024 1:00am gerd [place] (7 sources) Start: take 1 capsule by mouth once daily [place] 450 mg capsule Active 450 mg PO DAILY February 08, 2025 12:00am prostate Start: 05-08-2017 take 1 tablet by lissa twice daily [facility] SAW [place]METTO CAPS 320 mg. One tablet by mouth twice daily SAW PALMETTO (SERENOA REPENS) CAPS [id number] Anjelica Walden tamsulosin hydrochloride 0.4 mg oral [...] on above: Take 1 capsule by mo akh once daily. Take 2 capsules by m [...] 25, 2021 12:00am February 19, 2024 11:13am [place] Start: 08-23-2020 End: 10-19-2020 take 1 tablet [...] for pain and inflammation with food NAPROXEN [id number] Anjelica Walden niacin 500 mg extended release [...] One tablet by mouth twice daily NIACIN [id number] Anjelica Walden Start: 03-17-2014 End: 09-09-2019 take [...] Comment on above: Take 1 capsule by [facility] once daily. Take 2 capsules by [facility] once daily. predniSONE 20 mg oral tablet [...] Comment on above: Take 3 tablets by [facility] once daily for 5 days. rOPINIRole 4 mg oral tablet (20 sources) Nonergot Dopamine Agonist Start: End: take 1 tablet by mouth three times daily Ropinirole 4 MG tablet Discontinued 4 mg PO THREE TIMES A DAY August 26, 2020 1:00am April 25, 2021 10:22am Check with primary doctor Comment on above: Take 1 tablet by [facility] three times daily. traZODone hydrochloride 50 mg [...] (1 source) Drug therapy finding; Translations: [Other skilled nursing (current) drug therapy] 12-24-2023 Episodic Other bone [...] 7 x 30 mm Protege stenting 03/18/14; CHAIN SALES REPRESENTATIVE 5 x 2 Powerflex and 6 x [...] 05-08-2017 Episodic Other aftercare (1 source) Other ferry terminal agent (current) drug therapy; Translations: [Current use of [...] 7 x 30 mm Protege stenting 03/18/14; CHAIN SALES REPRESENTATIVE 5 x 2 Powerflex and 6 x [...] Auto (Unsp spec) [#/Vol] 1.00 10*3/uL 0.83-4.51 [facility] Absolute neutrophil countOrd ered By: ED PROVIDER on 02-08-2025 Neutrophils (Bld) [#/Vol] 7.7 10*3/uL 2.0-7.7 [facility] Activated partial thrombopla stin time (aPTT) in platelet poor plasma by coagulation aOrdered By: ED PROVIDER on 02-08-2025 aPTT Coag (PPP) [Time] 26.3 s 24.1-36.2 [facility] Anion gap in Serum or Plasma Ordered By: ED PROVIDER on 02-08-2025 Anion gap [Moles/Vol] 18 mmol/L High 5-15 [facility] BUN/creatinine ratioOrdered By: ED PROVIDER on 02-08-2025 Urea nitrogen/Creatinine [Mass ratio] 16.5 mg/mg 10-20 [facility] Basophil percentageOrdered B y: ED PROVIDER on 02-08-2025 Basophils/100 WBC (Bld) 0.7 % 0-1 [facility] Blood platelets count (numbe r/volume)Ordered By: ED PROVIDER on 02-08-2025 Platelets (Bld) [#/Vol] 200 10*3/uL 150-450 [facility] Carbon dioxide, total [Moles /volume] in Central venous bloodOrdered By: ED PROVIDER on 02-08-2025 CO2 [Moles/Vol] 20.0 mmol/L Low 21.0-32.0 [facility] Chloride assayOrdered By: ED PROVIDER on 02-08-2025 Chloride [Moles/Vol] 103 mmol/L 98-108 [facility] Eosinophil %Ordered By: ED P ROVIDER on 02-08-2025 Eosinophils/100 WBC (Bld) 4.1 % 0-5 [facility] Erythrocyte distribution wid th ratioOrdered By: ED PROVIDER on 02-08-2025 Erythrocyte distribution width (RBC) [Ratio] 14.8 % High 11.6-14.6 [facility] Glomerular filtration rate ( GFR) estimation/1.73 sq m using serum, plasma, or whole bOrdered By: ED PROVIDER on 02-08-2025 GFR/1.73 sq M.predicted among non-blacks MDRD (S/P/Bld) [Vol rate/Area] 52 mL/min/{1.73_m2} Low >60 [facility] Hematocrit Auto (Bld) [Volum e fraction]Ordered By: ED PROVIDER on 02-08-2025 Hematocrit (Bld) [Volume fraction] 47.7 % 40-54 [facility] Hemoglobin measurementOrdere d By: ED PROVIDER on 02-08-2025 Hemoglobin (Bld) [Mass/Vol] 16.3 g/dL 13.0-16.5 [facility] Immature granulocyte percent ageOrdered By: ED PROVIDER on 02-08-2025 Immature granulocytes/100 WBC (Bld) 1.500 % High 0.0-0.9 [facility] Comment on above: IG% - Immature Granu locytes (promyelocytes, myelocytes and metamyelocytes) > 1% indicates that a LEFT SHIFT is Present. International normalized rat io (INR) calculationOrdered By: ED PROVIDER on 02-08-2025 INR Coag (Bld) [Relative time] 1.0 {INR} [facility] Lymphocyte %Ordered By: ED P ROVIDER on 02-08-2025 Lymphocytes/100 WBC (Bld) 9.9 % Low 19-41 [facility] MCV (mean corpuscular volume ) determinationOrdered By: ED PROVIDER on 02-08-2025 MCV (RBC) [Entitic vol] 89.5 fL 80-94 [facility] Magnesium measurement (mass/ volume)Ordered By: Janice Sanford on 02-08-2025 Magnesium (Unsp spec) [Mass/Vol] 1.8 mg/dL 1.5-2.2 [facility] Mean corpuscular hemoglobin (MCH) determinationOrdered By: ED PROVIDER on 02-08-2025 MCH (RBC) [Entitic mass] 30.6 pg 27.0-32.0 [facility] Mean corpuscular hemoglobin concentration (MCHC) determinationOrdered By: ED PROVIDER on 02-08-2025 MCHC (RBC) [Mass/Vol] 34.2 g/dL 32-36 [facility] Mean platelet volume determi nationOrdered By: ED PROVIDER on 02-08-2025 Platelet mean volume (Bld) [Entitic vol] 11.3 fL 6.2-12.0 [facility] Monocyte percentageOrdered B y: ED PROVIDER on 02-08-2025 Monocytes/100 WBC (Bld) 8.0 % 0-10 [facility] Neutrophil %Ordered By: ED P ROVIDER on 02-08-2025 Neutrophils/100 WBC (Bld) 75.8 % High 47-70 [facility] Potassium measurement (mass/ volume)Ordered By: ED PROVIDER on 02-08-2025 Potassium (Unsp spec) [Mass/Vol] 3.4 mmol/L 3.3-5.1 [facility] Prothrombin timeOrdered By: ED PROVIDER on 02-08-2025 PT Coag (PPP) [Time] 13.1 s 11.7-14.9 [facility] RBC Auto (Bld) [#/Vol]Ordere d By: ED PROVIDER on 02-08-2025 RBC (Bld) [#/Vol] 5.33 10*6/uL 4.6-6.2 [facility] RDWOrdered By: ED PROVIDER o n 02-08-2025 RDW 47.8 fl High 35.1-43.9 [facility] Serum creatinine measurement (mass/volume)Ordered By: ED PROVIDER on 02-08-2025 Creatinine [Mass/Vol] 1.39 mg/dL High 0.70-1.20 [facility] Serum glucose measurement (m ass/volume)Ordered By: ED PROVIDER on 02-08-2025 Glucose [Mass/Vol] 102 mg/dL High 70-99 [facility] Serum or plasma calcium nichole urement (mass/volume)Ordered By: ED PROVIDER on 02-08-2025 Calcium [Mass/Vol] 9.5 mg/dL 7.6-11.0 [facility] Serum or plasma ethanol nichole urement (mass/volume)Ordered By: ED PROVIDER on 02-08-2025 Ethanol [Mass/Vol] 223.0 mg/dL High <10.1 [facility] Serum or plasma urea nitroge n measurement (mass/volume)Ordered By: ED PROVIDER on 02-08-2025 Urea nitrogen [Mass/Vol] 23 mg/dL High 4-19 [facility] Sodium levelOrdered By: ED P HALLIE on 02-08-2025 Sodium [Moles/Vol] 141 mmol/L 133-145 [facility] Troponin T.cardiac [Mass/vol ume] in Serum or Plasma by High sensitivity methodOrdered By: ED PROVIDER on 02-08-2025 Troponin T.cardiac High sensitivity method [Mass/Vol] 29 ng/L High <22 [facility] White blood cell (WBC) count Ordered By: ED PROVIDER on 02-08-2025 WBC (Bld) [#/Vol] 10.1 10*3/uL 4.4-11.0 [facility] CNPNon 10-31-2024 CNPN Telephone ([facility]) CLARK LYLES ([id number]) 1935 M Date Time Provider Department 10/31/24 BRIGITTE SEGAL [facility] During your visit today, we recorded the following information about you: Jaqueline Andre, ZACKARY 10/31/2024 3:35 PM Signed Palliative Medicine Referral Assessment Referral Accepted: No, Reason for Denial: Chart reviewed, pal med order meant for [facility] in [place]. Jaqueline Andre RN October 31, 2024 Allergies As of Date: 10/31/2024 Noted Allergy Reaction LISINOPRIL 12/28/2009 3 - Cough SULFA (SULFONAMIDE ANTIBIOTICS) 03/09/2006 4 - Hives Date Reviewed: 09/19/2024 Reviewed by: Shirley Rivera MA - Fully Assessed Reason for Visit: [id number] [Other] Initial Consult [665] Prescriptions as of [...] Meds Comments as of 04/18/2021: Taking [place]. Problem List As Of Date 10/31/2024 Noted [...] chronic blood los*01/27/2020 Coronary artery disease involving algaaciq rabago*12/22/2020 S/P primary angioplasty with coronary stent [Z9*12/22/2020 Fall from standing [W19.XXXA] 09/20/2021 Encounter for support and coordination of trans*08/11/2023 Acute respiratory failure with hypoxia (HCC) [J*09/25/2023 Encounter Status:Closed by JAQUELINE ANDRE on 10/31/24 [facility] 10-27-2024 [facility] Telephone ([facility]AMPWS) CLARK LYLES ([id number]) 1935 M Date Time Provider Department 10/27/24 [facility] SEGAL [facility] During your visit today, we recorded the following information about you: Amita Kim LPN 10/27/2024 3:57 PM Signed Rohan with [facility] calls to report family is requesting order for palliative care. Fax order to [facility] in [place]. Rohan also reports he saw pt today and is extending nurse to once a week x 2 weeks. Pt will then be discharged from Nursing. Rohan reports that Pulmonary gave new dx for pt of COPD and pulmonary htn. HIWOT Mariee Jacqueline A, APRN.[facility] 10/27/2024 4:52 PM Signed Please ask [...] to Paulino (not Rohan) with [facility]. Paulino reports that he did get [...] infection (HCC) [J44.0] Order(s):CONSULT TO PALLIATIVE CARE [1224299] Order #: [id number]: 1 FUTURE Prescriptions as of 10/28/2024 - [...] Meds Comments as of 04/18/2021: Taking [place]. Problem List As Of Date 10/27/2024 Noted Resolved BENIGN HYPERTENSION [I10] 01/08/2006 Anxiety state [F41.1] 01/05/2009 GERD (gastroesophageal reflux disease) [K21.9] 01/10/2011 BPH (benign prostatic hyperplasia) [N40.0] 03/17/2013 PAD (peripheral artery disease) ([facility]) [I73.9] 02/28/2014 Hyperlipidemia LDL goal <100 [E78.5] 03/28/2016 Hyperbilirubinemia [E80.6] 05/10/2016 Parkinson's disease (HCC) [G20.A1] 07/11/2017 Angina pectoris (HCC) [I20.9] 08/25/2019 Restless legs syndrome [G25.81] 01/27/2020 Iron deficiency anemia due to chronic blood los*01/27/2020 Coronary artery disease involving algaaciq rabago*12/22/2020 S/P primary angioplasty with coronary stent [Z9*12/22/2020 Fall from standing [W19.XXXA] 09/20/2021 Encounter for support an (more content not included)... Normal [facility] Pulmonary Visit Reporton Pulmonary Visit Report [facility] [place] [address] [place] [address] OFFICE VISIT Date of Service: 10/16/24 MR#: [id number] Acct: [id number] Name: CLARK LYLES Rep #: [id number] : 1935 Provider: MALIKA Taylor Age/Sex: 88/M Location: [facility] Status: Signed Assessment and Plan Assessment and [...] for hospital follow-up after recent hospitalization at [facility] from September 07 through September 15, 2024 [...] H Pu (more content not included)... Normal [facility] CNPNon 10-15-2024 [facility] Telephone ([facility]AMPWS) CLARK LYLES ([id number]) 1935 M Date Time Provider Department 10/15/24 [facility] SEGAL [facility] During your visit today, we recorded the following information about you: Radha Green, RN 10/15/2024 3:04 PM Signed [facility]- nurse- [facility]- reports he did patient eval today and will extend [facility] visits to 1 x week for 2 [...] Meds Comments as of 04/18/2021: Taking Saw [place]yno. Problem List As Of Date 10/15/2024 Noted Resolved BENIGN HYPERTENSION [I10] 01/08/2006 Anxiety state [F41.1] 01/05/2009 GERD (gastroesophageal reflux disease) [K21.9] 01/10/2011 BPH (benign prostatic hyperplasia) [N40.0] 03/17/2013 PAD (peripheral artery disease) ([facility]) [I73.9] 02/28/2014 Hyperlipidemia LDL goal <100 [E78.5] 03/28/2016 Hyperbilirubinemia [E80.6] 05/10/2016 Parkinson's disease (HCC) [G20.A1] 07/11/2017 Angina pectoris (HCC) [I20.9] 08/25/2019 Restless legs syndrome [G25.81] 01/27/2020 Iron deficiency anemia due to chronic blood los*01/27/2020 Coronary artery disease involving algaaciq rabago*12/22/2020 S/P primary angioplasty with coronary stent [Z9*12/22/2020 Fall from standing [W19.XXXA] 09/20/2021 Encounter for support and coordination of trans*08/11/2023 Acute respiratory failure with hypoxia (HCC) [J*09/25/2023 Encounter Status:Closed by Radha GREEN on 10/30/24 [facility] 10-03-2024 [facility] Telephone (COUMWS) CLARK LYLES ([id number]) 1935 M Date Time Provider Department 10/03/24 BRIGITTE SEGAL During your visit today, we recorded the following information about you: Mary Balderas, RN 10/03/2024 2:54 PM Signed Jamie with [facility] is calling due to he saw [...] needs called back with information. Brigitte Segal APRN.[facility] 10/03/2024 2:59 PM Signed Yes. Please increase O2 to 4l. Thank you for the recert. Shirley Rivera MA 10/03/2024 3:56 PM Signed Detailed message left on secure line for Jamie [facility] Shirley Rivera MA October 03, 2024 [...] Meds Comments as of 04/18/2021: Taking [place]. Problem List As Of Date 10/03/2024 [...] chronic blood los*01/27/2020 Coronary artery disease involving algaaciq rabago*12/22/2020 S/P primary angioplasty with coronary stent [Z9*12/22/2020 Fall from standing [W19.XXXA] 09/20/2021 Encounter for support and coordination of trans*08/11/2023 Acute respiratory failure with hypoxia (HCC) [J*09/25/2023 Encounter Status:Closed by SHIRLEY RIVERA on 10/03/24 [facility] CNOVon 09-19-2024 CNOV Office Visit (FAMPWS ) CLARK LYLES ([id number]) 1935 M Date Time Provider Department 09/19/24 2:40 PM [facility] your visit today, we recorded the following information about you: Temperature Pulse Blood pressure Weight 98.7 degrees 80/minute 128/62 72.6 kg Brigitte Segal APRN.STRATEGIC DEVELOPMENT MANAGER 09/19/2024 3:25 PM Signed This is a [...] lipoma performed by Dr. Robe Mackenzie at [facility] REVSC OPN/PRQ FEM/POP W/STNT/ANGIOP SM VSL [...] included)... Normal [facility] Mikey 09-19-2024 [facility] Telephone ([facility]) CLARK LYLES ([id number]) 1935 M Date Time Provider Department 09/19/24 [facility]ITTE SEGAL [facility] During your visit today, we recorded the following information about you: Whit Sheridan RN 09/19/2024 2:23 PM Signed Rohan calling with [facility] Physical Therapy with plan of care for patient. Pt will be seen 1x per week for 4 weeks for functional mobility training. No call back needed if provider agreeable. ZACKARY Vines Jacqueline A, LAND CLEARER.STRATEGIC DEVELOPMENT MANAGER 09/19/2024 3:33 PM Signed Sounds good. Agree. [...] Meds Comments as of 04/18/2021: Taking [place]. Problem List As Of Date 09/19/2024 [...] chronic blood los*01/27/2020 Coronary artery disease involving algaaciq rabago*12/22/2020 S/P primary angioplasty with coronary stent [Z9*12/22/2020 Fall from standing [W19.XXXA] 09/20/2021 Encounter for support and coordination of trans*08/11/2023 Acute respiratory failure with hypoxia (HCC) [J*09/25/2023 Encounter Status:Closed by BRIGITTE SEGAL [facility] CLARK LYLES ([id number]) 1935 M Date Time Provider Department 09/17/24 BRIGITTE SEGAL During your visit today, we recorded the following information about you: Tracy Cedillo, RN 09/17/2024 12:57 PM Signed Hellen calling from [facility] to report plan of care for patient and senior care will visit patient 1 time a week for 1 week and 2 times a week for 2 weeks. Alf will work with patient on wound care (patient has skin tear to right elbow) and management of O2 levels. Hellen had no orders for wound care. Hellen cleaned wound and put on Vaseline gauze and band aid. Hellen also notes that patient is on Oxygen and thought that he was only going to be on oxygen for a week. Patient does not see chemical research engineer for a month. Hellen did not know if provider wanted to address Oxygen use. Patient is scheduled to see PCP 09/19/2024. No call back needed unless there are questions. ZACKARY Tristan Jacqueline A, SHUKRI.STRATEGIC DEVELOPMENT MANAGER 09/18/2024 8:09 AM Signed Patient will need to stay on oxygen until he follows up with pulmonary. I have not seen him since February 2024 therefore I am not really able to shed any light on his oxygen use. Not common to use oxygen for only a week. Tracy Cedillo RN 09/18/2024 9:53 AM Signed Haley from [facility] calls and reports that granddaughter [...] provider tomorrow 09/19/2024. Please Contact Haley back [phone]. ZACKARY Tristan Jacqueline A, SHUKRI.STRATEGIC DEVELOPMENT MANAGER 09/18/2024 10:41 AM Signed Absolutely keep at [...] Date Reviewed: 03/27/2024 Reviewed by: Brigitte Segal, SHUKRI.STRATEGIC DEVELOPMENT MANAGER - Fully Assessed Reason for Visit: Alf Plan of Care [Other] Prescriptions as of [...] Meds Comments as of 04/18/2021: Taking [place]. Problem List As Of Date 09/17/2024 [...] chronic blood los*01/27/2020 Coronary artery disease involving algaaciq rabago*12/22/2020 S/P primary angioplasty with coronary stent [Z9*12/22/2020 Fall from standing [W19.XXXA] 09/20/2021 Encounter for support and coordination of trans*08/11/2023 Acute respiratory failure with hypoxia (HCC) [J*09/25/2023 Encounter Status:Closed by TRACY CEDILLO on 09/22/24 [facility]2024 [facility] ([id number]) 1935 M Date Time Provider Department 09/15/24 BRIGITTE SEGAL During your visit today, we recorded the following information about you: Tracy Cedillo RN 09/15/2024 3:32 PM Signed Rochelle from [facility] calls and states that patient is being discharged from [facility] PCU on 09/05/2024 with the diagnosis of hypoxia and acute respiratory failure. Rochelle asking if provider willing to follow patient with orders for senior care, physical therapy, occupational therapy and social work. If agreeable please give Rochelle a call back . Thank you, ZACKARY Tristan Jacqueline A, APRN.[facility] 09/15/2024 4:41 PM Signed Yes. Of course Brigitte Segal APRN.[facility] 09/15/2024 5:31 PM Signed Patient is [...] message left for Rochelle at [facility] with verbal agreement of plan. Shirley Rivera MA September 16, 2024 9:12 AM Allergies As of Date: 09/15/2024 Noted Allergy Reaction LISINOPRIL 12/28/2009 3 - Cough SULFA (SULFONAMIDE ANTIBIOTICS) 03/09/2006 4 - Hives Date Reviewed: 03/27/2024 Reviewed by: Brigitte Segal APRN.STRATEGIC DEVELOPMENT MANAGER - Fully Assessed Reason for Visit: Home [...] Meds Comments as of 04/18/2021: Taking [place]. Problem List As Of Date 09/15/2024 Noted Resolved BENIGN HYPERTENSION [I10] 01/08/2006 Anxiety state [F41.1] 01/05/2009 GERD (gastroesophageal reflux disease) [K21.9] 01/10/2011 BPH (benign prostatic hyperplasia) [N40.0] 03/17/2013 PAD (peripheral artery disease) ([facility]) [I73.9] 02/28/2014 Hyperlipidemia LDL goal <100 [E78.5] 03/28/2016 Hyperbilirubinemia [E80.6] 05/10/2016 Parkinson's disease (HCC) [G20.A1] 07/11/2017 Angina pectoris (HCC) [I20.9] 08/25/2019 Restless legs syndrome [G25.81] 01/27/2020 Iron deficiency anemia due to chronic blood los*01/27/2020 Coronary artery disease involving algaaciq rabago*12/22/2020 S/P primary angioplasty with coronary stent [Z9* (more content not included)... Normal [facility] Discharge Instructionon 08-30 Discharge Instruction [facility] Medical Records Department [address] [place] [address] Instructions for Home/Discharge Instructions 09/15/24905 MR#: [id number] Acct: [id number] Name: CLARK LYLES Rep #: [id number] : 1935 88 From: John Soliz MD PCP: Brigitte Segal, PAINTER TOUCH UP Status:ADM IN Discharge Instructions Diet Discharge Diet: [...] MD; Dr. Lester Perdomo DO Signed Normal [facility] Serum or plasma trough vanco mycin levelOrdered By: Jerrell Monterroso on 09-15-2024 Vancomycin trough [Mass/Vol] 16.5 ug/mL High 5.0-15.0 [facility] Comment on above: VANCOMYCIN STANDARED DRUG THERAPY TROUGH LEVEL: 5.0 - 15.0 mg/L VANCOMYCIN HIGH INTENSITY THERAPY TROUGH LEVEL: 15.0 - 20.0 mg/L High Intensity therapy recommended for serious lifethreatening infections include:- Ppnlvihubw-Cuuybhursypz-Jdjkfhsog (Ventilator/Healtcare Associated)-Sepsis PLEASE CONTACT PHARMACY SERVICES (#[id number]) FOR INTERPRETATIONOF RESULTS. Vancomycin, Trough Levelon 0 09-15-2024 VANCO, TROUGH 16.5 ug/mL High 5.0-15.0 [facility] Comment on above: Order Comment: Comme nts: Trough to be drawn 30 mins prior to scheduled [id number] Result Comment: VANC OMYCIN STANDARED DRUG THERAPY TROUGH LEVEL: 5.0 - 15.0 mg/L VANCOMYCIN HIGH INTENSITY THERAPY TROUGH LEVEL: 15.0 - 20.0 mg/L High Intensity therapy recommended for serious life threatening infections include: - Meningitis -Endocarditis -Pneumonia (Ventilator/Healtcare Associated) -Sepsis PLEASE CONTACT PHARMACY SERVICES (#[id number]) FOR INTERPRETATION OF RESULTS. Performed By: #### L 100.0100, L500.2500 #### [facility] [address] [place], [address] Absolute lymphocyte countOrd ered By: Lester Perdomo on 09-14-2024 Lymphocytes Auto (Unsp spec) [#/Vol] 1.09 10*3/uL 0.83-4.51 [facility] Absolute neutrophil countOrd ered By: Lester Perdomo on 09-14-2024 Neutrophils (Bld) [#/Vol] 12.0 10*3/uL High 2.0-7.7 [facility] Automated lymphocyte count a s percentage of total leukocytesOrdered By: Lester Perdomo on 09-14-2024 Lymphocytes/100 WBC Auto (Unsp spec) 7.3 % Low 19-41 [facility] Basic Metabolic Profile (BMP )on 09-14-2024 BUN/CRE 44.2 RATIO High 10-20 [facility] Comment on above: Performed By: #### L 100.0100, L500.2500 #### [facility] [address] [place], [address] CA,Total 8.6 mg/dL Normal 8.5-10.1 [facility] Comment on above: Performed By: #### L 100.0100, L500.2500 #### [facility] [address] [place], [address] Chloride [Moles/Vol] 106 mmol/L Normal 98-107 [facility] Comment on above: Performed By: #### L 100.0100, L500.2500 #### [facility] [address] [place], [address] CO2 [Moles/Vol] 27.0 mmol/L Normal 21.0-32.0 [facility] Comment on above: Performed By: #### L 100.0100, L500.2500 #### [facility] [address] [place], [address] Creatinine [Mass/Vol] 0.84 mg/dL Normal 0.70-1.30 [facility] Comment on above: Result Comment: The validity of the calculated GFR GFRAA in patients over 70 years has not been determined. Clinical correlation is essential. Performed By: #### L 100.0100, L500.2500 #### [facility] [address] [place], [address] ECRCL 63.04 ml/min Normal [facility] Comment on above: Performed By: #### L 100.0100, L500.2500 #### [facility] [address] [place], [address] EST GFR - AA 112 mL/min Normal >60 [facility] Comment on above: Result Comment: Afri can Israeli GFR Calc Performed By: #### L 100.0100, L500.2500 #### [facility] [address] [place], [address] GAP 6 Normal 5-15 [facility] Comment on above: Performed By: #### L 100.0100, L500.2500 #### [facility] [address] [place], [address] GFR/1.73 sq M.predicted among non-blacks MDRD (S/P/Bld) [Vol rate/Area] 92 mL/min/{1.73_m2} Normal >60 [facility] Comment on above: Result Comment: Non- GFR Calc Performed By: #### L 100.0100, L500.2500 #### [facility] [address] [place], [address] Glucose [Mass/Vol] 156 mg/dL High 74-106 [facility] Comment on above: Result Comment: Fast ing Glucose result greater than or equal to 126 mg/dL suggests DIABETES MELLITUS per A.D.A. criteria. Performed By: #### L 100.0100, L500.2500 #### [facility] [address] [place], [address] Potassium [Moles/Vol] 3.4 mmol/L Low 3.5-5.1 [facility] Comment on above: Performed By: #### L 100.0100, L500.2500 #### [facility] [address] [place], [address] Sodium [Moles/Vol] 139 mmol/L Normal 136-145 [facility] Comment on above: Performed By: #### L 100.0100, L500.2500 #### [facility] [address] [place], [address] Urea nitrogen [Mass/Vol] 37 mg/dL High 7-18 [facility] Comment on above: Performed By: #### L 100.0100, L500.2500 #### [facility] [address] [place], [address] Basophil percentageOrdered B y: Lester Perdomo on 09-14-2024 Basophils/100 WBC (Bld) 0.1 % 0-1 [facility] Blood urea nitrogen (BUN)/cr eatinine ratioOrdered By: Lester Perdomo on 09-14-2024 Urea nitrogen/Creatinine [Mass ratio] 44.2 mg/mg High 10-20 [facility] CBC W/Diff, Automatedon - REACTIVE LYMPH 1+ Normal [facility] Comment on above: Performed By: #### L 100.0100, L500.2500 #### [facility] [address] [place], [address] Carbon dioxide measurementOr dered By: Lester Perdomo on 09-14-2024 CO2 [Moles/Vol] 27.0 mmol/L 21.0-32.0 [facility] Chloride measurementOrdered By: Lester Perdomo on 09-14-2024 Chloride [Moles/Vol] 106 mmol/L 98-107 [facility] Eosinophil percentageOrdered By: Lester Perdomo on 09-14-2024 Eosinophils/100 WBC (Bld) 0.3 % 0-5 [facility] Erythrocyte distribution wid th ratioOrdered By: Lester Perdomo on 09-14-2024 Erythrocyte distribution width (RBC) [Ratio] 16.1 % High 11.6-14.6 [facility] Erythrocyte distribution wid th standard deviationOrdered By: Lester Perdomo on 09-14-2024 Erythrocyte distribution width (RBC) [Ratio] 56.8 fl High 35.1-43.9 [facility] Glomerular filtration rate ( GFR) estimationOrdered By: Lester Perdomo on 09-14-2024 GFR/1.73 sq M.predicted among non-blacks MDRD (S/P/Bld) [Vol rate/Area] 92 mL/min/{1.73_m2} >60 [facility] Comment on above: Non- GFR Calc Glucose measurementOrdered B y: Lester Perdomo on 09-14-2024 Glucose [Mass/Vol] 156 mg/dL High 74-106 [facility] Comment on above: Fasting Glucose resu lt greater than or equal to 126 mg/dL suggests DIABETES MELLITUS per A.D.A. criteria. Hematocrit Auto (Bld) [Volum e fraction]Ordered By: Lester Perdomo on 09-14-2024 Hematocrit (Bld) [Volume fraction] 43.5 % 40-54 [facility] Hemoglobin measurementOrdere d By: Lester Perdomo on 09-14-2024 Hemoglobin (Bld) [Mass/Vol] 14.3 g/dL 13.0-16.5 [facility] Immature granulocytes/100 WB C Auto (Bld)Ordered By: Lester Perdomo on 09-14-2024 Immature granulocytes/100 WBC (Bld) 4.800 % High 0.0-0.9 [facility] Comment on above: IG% - Immature Granu locytes (promyelocytes, myelocytes and metamyelocytes) > 1% indicates that a LEFT SHIFT is Present. MCV (mean corpuscular volume ) determinationOrdered By: Lester Perdomo on 09-14-2024 MCV (RBC) [Entitic vol] 96.2 fL High 80-94 [facility] Mean corpuscular hemoglobin (MCH) determinationOrdered By: Lester Perdomo 09-14-2024 MCH (RBC) [Entitic mass] 31.6 pg 27.0-32.0 [facility] Mean corpuscular hemoglobin concentration (MCHC) determinationOrdered By: Lester Perdomo on 09-14-2024 MCHC (RBC) [Mass/Vol] 32.9 g/dL 32-36 [facility] Mean platelet volume determi nationOrdered By: Lester Perdomo on 09-14-2024 Platelet mean volume (Bld) [Entitic vol] 11.7 fL 6.2-12.0 [facility] Monocyte percentageOrdered B y: Lester Perdomo on 09-14-2024 Monocytes/100 WBC (Bld) 7.0 % 0-10 [facility] Neutrophil percentageOrdered By: Lester Perdomo on 09-14-2024 Neutrophils/100 WBC (Bld) 80.5 % High 47-70 [facility] Nucleated red blood cell per centageOrdered By: Lester Perdomo on 09-14-2024 Nucleated RBC/100 WBC (Bld) [Ratio] 0 % 0-5 [facility] Platelet countOrdered By: Geovany Perdomo on 09-14-2024 Platelets (Bld) [#/Vol] 152 10*3/uL 150-450 [facility] Potassium measurementOrdered By: Lester Perdomo on 09-14-2024 Potassium [Moles/Vol] 3.4 mmol/L Low 3.5-5.1 [facility] RBC Auto (Bld) [#/Vol]Ordere d By: Lester Perdomo on 09-14-2024 RBC (Bld) [#/Vol] 4.52 10*6/uL Low 4.6-6.2 [facility] Serum anion gap measurementO rdered By: Lester Perdomo on 09-14-2024 Anion gap [Moles/Vol] 6 mmol/L 5-15 [facility] Serum or plasma calcium nichole urement (mass/volume)Ordered By: Lester Perdomo on 09-14-2024 Calcium [Mass/Vol] 8.6 mg/dL 8.5-10.1 [facility] Serum or plasma creatinine m easurement (mass/volume)Ordered By: Lester Perdomo on 09-14-2024 Creatinine [Mass/Vol] 0.84 mg/dL 0.70-1.30 [facility] Comment on above: The validity of the calculated GFR & GFRAA in patients over 70 years has not been determined. Clinical correlation is essential. Serum or plasma urea nitroge n measurement (mass/volume)Ordered By: Lester Perdomo on 09-14-2024 Urea nitrogen [Mass/Vol] 37 mg/dL High 7-18 [facility] Sodium levelOrdered By: Lester Perdomo on 09-14-2024 Sodium [Moles/Vol] 139 mmol/L 136-145 [facility] White blood cell (WBC) count Ordered By: Lester Perdomo on 09-14-2024 WBC (Bld) [#/Vol] 14.9 10*3/uL High 4.4-11.0 [facility] Basic Metabolic Profile (BMP )on 09-13-2024 BUN/CRE 30.9 RATIO High 10-20 [facility] Comment on above: Performed By: #### L 100.0100, L500.2500 #### [facility] [address] [place], [address] CA,Total 8.6 mg/dL Normal 8.5-10.1 [facility] Comment on above: Performed By: #### L 100.0100, L500.2500 #### [facility] [address] [place], [address] Chloride [Moles/Vol] 103 mmol/L Normal 98-107 [facility] Comment on above: Performed By: #### L 100.0100, L500.2500 #### [facility] [address] [place], [address] CO2 [Moles/Vol] 33.0 mmol/L High 21.0-32.0 [facility] Comment on above: Performed By: #### L 100.0100, L500.2500 #### [facility] [address] [place], [address] Creatinine [Mass/Vol] 1.10 mg/dL Normal 0.70-1.30 [facility] Comment on above: Result Comment: The validity of the calculated GFR GFRAA in patients over 70 years has not been determined. Clinical correlation is essential. Performed By: #### L 100.0100, L500.2500 #### [facility] [address] [place], [address] ECRCL 49.57 ml/min Normal [facility] Comment on above: Performed By: #### L 100.0100, L500.2500 #### [facility] [address] [place], [address] EST GFR - AA 82 mL/min Normal >60 [facility] Comment on above: Result Comment: Afri can Israeli GFR Calc Performed By: #### L 100.0100, L500.2500 #### [facility] [address] [place], [address] GAP 3 Low 5-15 [facility] Comment on above: Performed By: #### L 100.0100, L500.2500 #### [facility] [address] [place], [address] GFR/1.73 sq M.predicted among non-blacks MDRD (S/P/Bld) [Vol rate/Area] 67 mL/min/{1.73_m2} Normal >60 [facility] Comment on above: Result Comment: Non- GFR Calc Performed By: #### L 100.0100, L500.2500 #### [facility] [address] [place], [address] Glucose [Mass/Vol] 168 mg/dL High 74-106 [facility] Comment on above: Result Comment: Fast ing Glucose result greater than or equal to 126 mg/dL suggests DIABETES MELLITUS per A.D.A. criteria. Performed By: #### L 100.0100, L500.2500 #### [facility] [address] [place], [address] Potassium [Moles/Vol] 3.3 mmol/L Low 3.5-5.1 [facility] Comment on above: Performed By: #### L 100.0100, L500.2500 #### [facility] [address] [place], [address] Sodium [Moles/Vol] 139 mmol/L Normal 136-145 [facility] Comment on above: Performed By: #### L 100.0100, L500.2500 #### [facility] [address] [place], [address] Urea nitrogen [Mass/Vol] 34 mg/dL High 7-18 [facility] Comment on above: Performed By: #### L 100.0100, L500.2500 #### [facility] [address] [place], [address] CBC W/Diff, Automatedon 08-30 Absolute Lymph 0.43 X10 3/uL Low 0.83-4.51 [facility] Comment on above: Performed By: #### L 100.0100, L500.2500 #### [facility] [address] [place], [address] Absolute Neut 12.2 X10 3/uL High 2.0-7.7 [facility] Comment on above: Performed By: #### L 100.0100, L500.2500 #### [facility] [address] [place], [address] Basophils/100 WBC (Bld) 0.7 % Normal 0-1 [facility] Comment on above: Performed By: #### L 100.0100, L500.2500 #### [facility] [address] [place], [address] Eosinophils/100 WBC (Bld) 0.0 % Normal 0-5 [facility] Comment on above: Performed By: #### L 100.0100, L500.2500 #### [facility] [address] [place], [address] Erythrocyte distribution width (RBC) [Ratio] 15.8 % High 11.6-14.6 [facility] Comment on above: Performed By: #### L 100.0100, L500.2500 #### [facility] [address] [place], [address] Hematocrit (Bld) [Volume fraction] 45.7 % Normal 40-54 [facility] Comment on above: Performed By: #### L 100.0100, L500.2500 #### [facility] [address] [place], [address] Hemoglobin (Bld) [Mass/Vol] 15.5 g/dL Normal 13.0-16.5 [facility] Comment on above: Performed By: #### L 100.0100, L500.2500 #### [facility] [address] [place], [address] IG% 2.600 High 0.0-0.9 [facility] Comment on above: Result Comment: IG% - Immature Granulocytes (promyelocytes, myelocytes and metamyelocytes) > 1% indicates that a LEFT SHIFT is Present. Performed By: #### L 100.0100, L500.2500 #### [facility] [address] [place], [address] Lymphocytes/100 WBC (Bld) 3.2 % Low 19-41 [facility] Comment on above: Performed By: #### L 100.0100, L500.2500 #### [facility] [address] [place], [address] MCH (RBC) [Entitic mass] 32.0 pg Normal 27.0-32.0 [facility] Comment on above: Performed By: #### L 100.0100, L500.2500 #### [facility] [address] [place], [address] MCHC (RBC) [Mass/Vol] 33.9 g/dL Normal 32-36 [facility] Comment on above: Performed By: #### L 100.0100, L500.2500 #### [facility] [address] [place], [address] MCV (RBC) [Entitic vol] 94.4 fL High 80-94 [facility] Comment on above: Performed By: #### L 100.0100, L500.2500 #### [facility] [address] [place], [address] Monocytes/100 WBC (Bld) 3.8 % Normal 0-10 [facility] Comment on above: Performed By: #### L 100.0100, L500.2500 #### [facility] [address] [place], [address] Neutrophils/100 WBC (Bld) 89.7 % High 47-70 [facility] Comment on above: Performed By: #### L 100.0100, L500.2500 #### [facility] [address] [place], [address] Nucleated RBC (Bld) [#/Vol] 0 10*3/uL Normal 0-5 [facility] Comment on above: Performed By: #### L 100.0100, L500.2500 #### [facility] [address] [place], [address] Platelet mean volume (Bld) [Entitic vol] 11.4 fL Normal 6.2-12.0 [facility] Comment on above: Performed By: #### L 100.0100, L500.2500 #### [facility] [address] [place], [address] Platelets (Bld) [#/Vol] 162 10*3/uL Normal 150-450 [facility] Comment on above: Performed By: #### L 100.0100, L500.2500 #### [facility] [address] [place], [address] RBC (Bld) [#/Vol] 4.84 10*6/uL Normal 4.6-6.2 [facility] Comment on above: Performed By: #### L 100.0100, L500.2500 #### [facility] [address] [place], [address] RDW SD 54.8 fl High 35.1-43.9 [facility] Comment on above: Performed By: #### L 100.0100, L500.2500 #### [facility] [address] [place], [address] WBC (Bld) [#/Vol] 13.5 10*3/uL High 4.4-11.0 [facility] Comment on above: Performed By: #### L 100.0100, L500.2500 #### [facility] [address] [place], [address] Vancomycin, Trough Levelon 0 - VANCO, TROUGH 17.0 ug/mL High 5.0-15.0 [facility] Comment on above: Order Comment: Comme nts: DRAW 30 MIN PRIOR TO DOSE 0330 Result Comment: VANC OMYCIN STANDARED DRUG THERAPY TROUGH LEVEL: 5.0 - 15.0 mg/L VANCOMYCIN HIGH INTENSITY THERAPY TROUGH LEVEL: 15.0 - 20.0 mg/L High Intensity therapy recommended for serious life threatening infections include: - Meningitis -Endocarditis -Pneumonia (Ventilator/Healtcare Associated) -Sepsis PLEASE CONTACT PHARMACY SERVICES (#0025) FOR INTERPRETATION OF RESULTS. Performed By: #### L 501.8820 #### [facility] [address] [place], [address] Basic Metabolic Profile (BMP )on 09-12-2024 BUN/CRE 33.2 RATIO High 10-20 [facility] Comment on above: Performed By: #### L 100.0100, L500.2500 #### [facility] [address] [place], [address] CA,Total 8.5 mg/dL Normal 8.5-10.1 [facility] Comment on above: Performed By: #### L 100.0100, L500.2500 #### [facility] [address] [place], [address] Chloride [Moles/Vol] 105 mmol/L Normal 98-107 [facility] Comment on above: Performed By: #### L 100.0100, L500.2500 #### [facility] [address] [place], [address] CO2 [Moles/Vol] 28.0 mmol/L Normal 21.0-32.0 [facility] Comment on above: Performed By: #### L 100.0100, L500.2500 #### [facility] [address] [place], [address] Creatinine [Mass/Vol] 0.96 mg/dL Normal 0.70-1.30 [facility] Comment on above: Result Comment: The validity of the calculated GFR GFRAA in patients over 70 years has not been determined. Clinical correlation is essential. Performed By: #### L 100.0100, L500.2500 #### [facility] [address] [place], [address] ECRCL 56.80 ml/min Normal [facility] Comment on above: Performed By: #### L 100.0100, L500.2500 #### [facility] [address] [place], [address] EST GFR - AA 95 mL/min Normal >60 [facility] Comment on above: Result Comment: Afri can Israeli GFR Calc Performed By: #### L 100.0100, L500.2500 #### [facility] [address] [place], [address] GAP 7 Normal 5-15 [facility] Comment on above: Performed By: #### L 100.0100, L500.2500 #### [facility] [address] [place], [address] GFR/1.73 sq M.predicted among non-blacks MDRD (S/P/Bld) [Vol rate/Area] 78 mL/min/{1.73_m2} Normal >60 [facility] Comment on above: Result Comment: Non- GFR Calc Performed By: #### L 100.0100, L500.2500 #### [facility] [address] [place], [address] Glucose [Mass/Vol] 156 mg/dL High 74-106 [facility] Comment on above: Result Comment: Fast ing Glucose result greater than or equal to 126 mg/dL suggests DIABETES MELLITUS per A.D.A. criteria. Performed By: #### L 100.0100, L500.2500 #### [facility] [address] [place], [address] Potassium [Moles/Vol] 3.4 mmol/L Low 3.5-5.1 [facility] Comment on above: Performed By: #### L 100.0100, L500.2500 #### [facility] [address] [place], [address] Sodium [Moles/Vol] 140 mmol/L Normal 136-145 [facility] Comment on above: Performed By: #### L 100.0100, L500.2500 #### [facility] [address] [place], [address] Urea nitrogen [Mass/Vol] 32 mg/dL High 7-18 [facility] Comment on above: Performed By: #### L 100.0100, L500.2500 #### [facility] [address] [place], [address] CBC W/Diff, Automatedon 08-30 Absolute Lymph 0.46 X10 3/uL Low 0.83-4.51 [facility] Comment on above: Performed By: #### L 100.0100, L500.2500 #### [facility] [address] [place], [address] Absolute Neut 11.3 X10 3/uL High 2.0-7.7 [facility] Comment on above: Performed By: #### L 100.0100, L500.2500 #### [facility] [address] [place], [address] Basophils/100 WBC (Bld) 0.2 % Normal 0-1 [facility] Comment on above: Performed By: #### L 100.0100, L500.2500 #### [facility] [address] [place], [address] Eosinophils/100 WBC (Bld) 0.0 % Normal 0-5 [facility] Comment on above: Performed By: #### L 100.0100, L500.2500 #### [facility] [address] [place], [address] Erythrocyte distribution width (RBC) [Ratio] 15.9 % High 11.6-14.6 [facility] Comment on above: Performed By: #### L 100.0100, L500.2500 #### [facility] [address] [place], [address] Hematocrit (Bld) [Volume fraction] 44.7 % Normal 40-54 [facility] Comment on above: Performed By: #### L 100.0100, L500.2500 #### [facility] [address] [place], [address] Hemoglobin (Bld) [Mass/Vol] 14.9 g/dL Normal 13.0-16.5 [facility] Comment on above: Performed By: #### L 100.0100, L500.2500 #### [facility] [address] [place], [address] IG% 1.700 High 0.0-0.9 [facility] Comment on above: Result Comment: IG% - Immature Granulocytes (promyelocytes, myelocytes and metamyelocytes) > 1% indicates that a LEFT SHIFT is Present. Performed By: #### L 100.0100, L500.2500 #### [facility] [address] [place], [address] Lymphocytes/100 WBC (Bld) 3.6 % Low 19-41 [facility] Comment on above: Performed By: #### L 100.0100, L500.2500 #### [facility] [address] [place], [address] MCH (RBC) [Entitic mass] 31.6 pg Normal 27.0-32.0 [facility] Comment on above: Performed By: #### L 100.0100, L500.2500 #### [facility] [address] [place], [address] MCHC (RBC) [Mass/Vol] 33.3 g/dL Normal 32-36 [facility] Comment on above: Performed By: #### L 100.0100, L500.2500 #### [facility] [address] [place], [address] MCV (RBC) [Entitic vol] 94.7 fL High 80-94 [facility] Comment on above: Performed By: #### L 100.0100, L500.2500 #### [facility] [address] [place], [address] Monocytes/100 WBC (Bld) 4.7 % Normal 0-10 [facility] Comment on above: Performed By: #### L 100.0100, L500.2500 #### [facility] [address] [place], [address] Neutrophils/100 WBC (Bld) 89.8 % High 47-70 [facility] Comment on above: Performed By: #### L 100.0100, L500.2500 #### [facility] [address] [place], [address] Nucleated RBC (Bld) [#/Vol] 0 10*3/uL Normal 0-5 [facility] Comment on above: Performed By: #### L 100.0100, L500.2500 #### [facility] [address] [place], [address] Platelet mean volume (Bld) [Entitic vol] 11.5 fL Normal 6.2-12.0 [facility] Comment on above: Performed By: #### L 100.0100, L500.2500 #### [facility] [address] [place], [address] Platelets (Bld) [#/Vol] 165 10*3/uL Normal 150-450 [facility] Comment on above: Performed By: #### L 100.0100, L500.2500 #### [facility] [address] [place], [address] RBC (Bld) [#/Vol] 4.72 10*6/uL Normal 4.6-6.2 [facility] Comment on above: Performed By: #### L 100.0100, L500.2500 #### [facility] [address] [place], [address] RDW SD 55.7 fl High 35.1-43.9 [facility] Comment on above: Performed By: #### L 100.0100, L500.2500 #### [facility] [address] [place], [address] WBC (Bld) [#/Vol] 12.6 10*3/uL High 4.4-11.0 [facility] Comment on above: Performed By: #### L 100.0100, L500.2500 #### [facility] [address] [place], [address] Respiratory Cultureon 2024 RESPC Mixed normal respira tory argenis. No Haemophilus, Streptococcus pneumoniae, beta-hemolytic Streptococcus or Staphylococcus aureus isolated. Normal [facility] Comment on above: Performed By: #### M 100.2400, M100.2000 ####[facility] [address] [place], [address] CBC W/Diff, Automatedon 08-30 Absolute Lymph 0.43 X10 3/uL Low 0.83-4.51 [facility] Comment on above: Performed By: #### L 100.0100 #### [facility] [address] [place], [address] Absolute Neut 11.6 X10 3/uL High 2.0-7.7 [facility] Comment on above: Performed By: #### L 100.0100 #### [facility] [address] [place], [address] Basophils/100 WBC (Bld) 0.1 % Normal 0-1 [facility] Comment on above: Performed By: #### L 100.0100 #### [facility] [address] [place], [address] Eosinophils/100 WBC (Bld) 0.0 % Normal 0-5 [facility] Comment on above: Performed By: #### L 100.0100 #### [facility] [address] [place], [address] Erythrocyte distribution width (RBC) [Ratio] 16.1 % High 11.6-14.6 [facility] Comment on above: Performed By: #### L 100.0100 #### [facility] [address] [place], [address] Hematocrit (Bld) [Volume fraction] 44.9 % Normal 40-54 [facility] Comment on above: Performed By: #### L 100.0100 #### [facility] [address] [place], [address] Hemoglobin (Bld) [Mass/Vol] 14.8 g/dL Normal 13.0-16.5 [facility] Comment on above: Performed By: #### L 100.0100 #### [facility] [address] [place], [address] IG% 1.600 High 0.0-0.9 [facility] Comment on above: Result Comment: IG% - Immature Granulocytes (promyelocytes, myelocytes and metamyelocytes) > 1% indicates that a LEFT SHIFT is Present. Performed By: #### L 100.0100 #### [facility] [address] [place], [address] Lymphocytes/100 WBC (Bld) 3.4 % Low 19-41 [facility] Comment on above: Performed By: #### L 100.0100 #### [facility] [address] [place], [address] MCH (RBC) [Entitic mass] 31.5 pg Normal 27.0-32.0 [facility] Comment on above: Performed By: #### L 100.0100 #### [facility] [address] [place], [address] MCHC (RBC) [Mass/Vol] 33.0 g/dL Normal 32-36 [facility] Comment on above: Performed By: #### L 100.0100 #### [facility] [address] [place], [address] MCV (RBC) [Entitic vol] 95.5 fL High 80-94 [facility] Comment on above: Performed By: #### L 100.0100 #### [facility] [address] [place], [address] Monocytes/100 WBC (Bld) 4.1 % Normal 0-10 [facility] Comment on above: Performed By: #### L 100.0100 #### [facility] [address] [place], [address] Neutrophils/100 WBC (Bld) 90.8 % High 47-70 [facility] Comment on above: Performed By: #### L 100.0100 #### [facility] [address] [place], [address] Nucleated RBC (Bld) [#/Vol] 0 10*3/uL Normal 0-5 [facility] Comment on above: Performed By: #### L 100.0100 #### [facility] [address] [place], [address] Platelet mean volume (Bld) [Entitic vol] 11.3 fL Normal 6.2-12.0 [facility] Comment on above: Performed By: #### L 100.0100 #### [facility] [address] [place], [address] Platelets (Bld) [#/Vol] 156 10*3/uL Normal 150-450 [facility] Comment on above: Performed By: #### L 100.0100 #### [facility] [address] [place], [address] RBC (Bld) [#/Vol] 4.70 10*6/uL Normal 4.6-6.2 [facility] Comment on above: Performed By: #### L 100.0100 #### [facility] [address] [place], [address] RDW SD 57.0 fl High 35.1-43.9 [facility] Comment on above: Performed By: #### L 100.0100 #### [facility] [address] [place], [address] WBC (Bld) [#/Vol] 12.8 10*3/uL High 4.4-11.0 [facility] Comment on above: Performed By: #### L 100.0100 #### [facility] [address] [place], [address] Basic Metabolic Profile (BMP )on 09-10-2024 BUN/CRE 37.5 RATIO High 10-20 [facility] Comment on above: Performed By: #### L 100.0100, L500.2500 #### [facility] [address] [place], [address] CA,Total 8.9 mg/dL Normal 8.5-10.1 [facility] Comment on above: Performed By: #### L 100.0100, L500.2500 #### [facility] [address] [place], [address] Chloride [Moles/Vol] 111 mmol/L High 98-107 [facility] Comment on above: Performed By: #### L 100.0100, L500.2500 #### [facility] [address] [place], [address] CO2 [Moles/Vol] 27.0 mmol/L Normal 21.0-32.0 [facility] Comment on above: Performed By: #### L 100.0100, L500.2500 #### [facility] [address] [place], [address] Creatinine [Mass/Vol] 0.77 mg/dL Normal 0.70-1.30 [facility] Comment on above: Result Comment: The validity of the calculated GFR GFRAA in patients over 70 years has not been determined. Clinical correlation is essential. Performed By: #### L 100.0100, L500.2500 #### [facility] [address] [place], [address] ECRCL 67.03 ml/min Normal [facility] Comment on above: Performed By: #### L 100.0100, L500.2500 #### [facility] [address] [place], [address] EST GFR - AA 122 mL/min Normal >60 [facility] Comment on above: Result Comment: Afri can Israeli GFR Calc Performed By: #### L 100.0100, L500.2500 #### [facility] [address] [place], [address] GAP 5 Normal 5-15 [facility] Comment on above: Performed By: #### L 100.0100, L500.2500 #### [facility] [address] [place], [address] GFR/1.73 sq M.predicted among non-blacks MDRD (S/P/Bld) [Vol rate/Area] 101 mL/min/{1.73_m2} Normal >60 [facility] Comment on above: Result Comment: Non- GFR Calc Performed By: #### L 100.0100, L500.2500 #### [facility] [address] [place], [address] Glucose [Mass/Vol] 132 mg/dL High 74-106 [facility] Comment on above: Result Comment: Fast ing Glucose result greater than or equal to 126 mg/dL suggests DIABETES MELLITUS per A.D.A. criteria. Performed By: #### L 100.0100, L500.2500 #### [facility] [address] [place], [address] Potassium [Moles/Vol] 3.7 mmol/L Normal 3.5-5.1 [facility] Comment on above: Performed By: #### L 100.0100, L500.2500 #### [facility] [address] [place], [address] Sodium [Moles/Vol] 142 mmol/L Normal 136-145 [facility] Comment on above: Performed By: #### L 100.0100, L500.2500 #### [facility] [address] [place], [address] Urea nitrogen [Mass/Vol] 29 mg/dL High 7-18 [facility] Comment on above: Performed By: #### L 100.0100, L500.2500 #### [facility] [address] [place], [address] CBC W/Diff, Automatedon 08-30 Absolute Lymph 0.39 X10 3/uL Low 0.83-4.51 [facility] Comment on above: Performed By: #### L 100.0100, L500.2500 #### [facility] [address] [place], [address] Absolute Neut 10.7 X10 3/uL High 2.0-7.7 [facility] Comment on above: Performed By: #### L 100.0100, L500.2500 #### [facility] [address] [place], [address] Basophils/100 WBC (Bld) 0.2 % Normal 0-1 [facility] Comment on above: Performed By: #### L 100.0100, L500.2500 #### [facility] [address] [place], [address] Eosinophils/100 WBC (Bld) 0.0 % Normal 0-5 [facility] Comment on above: Performed By: #### L 100.0100, L500.2500 #### [facility] [address] [place], [address] Erythrocyte distribution width (RBC) [Ratio] 16.5 % High 11.6-14.6 [facility] Comment on above: Performed By: #### L 100.0100, L500.2500 #### [facility] [address] [place], [address] Hematocrit (Bld) [Volume fraction] 43.4 % Normal 40-54 [facility] Comment on above: Performed By: #### L 100.0100, L500.2500 #### [facility] [address] [place], [address] Hemoglobin (Bld) [Mass/Vol] 14.7 g/dL Normal 13.0-16.5 [facility] Comment on above: Performed By: #### L 100.0100, L500.2500 #### [facility] [address] [place], [address] IG% 1.200 High 0.0-0.9 [facility] Comment on above: Result Comment: IG% - Immature Granulocytes (promyelocytes, myelocytes and metamyelocytes) > 1% indicates that a LEFT SHIFT is Present. Performed By: #### L 100.0100, L500.2500 #### [facility] [address] [facility] [place], [address] Lymphocytes/100 WBC (Bld) 3.3 % Low 19-41 [facility] Comment on above: Performed By: #### L 100.0100, L500.2500 #### [facility] [address] [place], [address] MCH (RBC) [Entitic mass] 32.3 pg High 27.0-32.0 [facility] Comment on above: Performed By: #### L 100.0100, L500.2500 #### [facility] [address] [place], [address] MCHC (RBC) [Mass/Vol] 33.9 g/dL Normal 32-36 [facility] Comment on above: Performed By: #### L 100.0100, L500.2500 #### [facility] [address] [place], [address] MCV (RBC) [Entitic vol] 95.4 fL High 80-94 [facility] Comment on above: Performed By: #### L 100.0100, L500.2500 #### [facility] [address] [place], [address] Monocytes/100 WBC (Bld) 4.3 % Normal 0-10 [facility] Comment on above: Performed By: #### L 100.0100, L500.2500 #### [facility] [address] [place], [address] Neutrophils/100 WBC (Bld) 91.0 % High 47-70 [facility] Comment on above: Performed By: #### L 100.0100, L500.2500 #### [facility] [address] [place], [address] Nucleated RBC (Bld) [#/Vol] 0 10*3/uL Normal 0-5 [facility] Comment on above: Performed By: #### L 100.0100, L500.2500 #### [facility] [address] [place], [address] Platelet mean volume (Bld) [Entitic vol] 11.9 fL Normal 6.2-12.0 [facility] Comment on above: Performed By: #### L 100.0100, L500.2500 #### [facility] [address] [place], [address] Platelets (Bld) [#/Vol] 166 10*3/uL Normal 150-450 [facility] Comment on above: Performed By: #### L 100.0100, L500.2500 #### [facility] [address] [place], [address] RBC (Bld) [#/Vol] 4.55 10*6/uL Low 4.6-6.2 [facility] Comment on above: Performed By: #### L 100.0100, L500.2500 #### [facility] [address] [place], [address] RDW SD 57.2 fl High 35.1-43.9 [facility] Comment on above: Performed By: #### L 100.0100, L500.2500 #### [facility] [address] [place], [address] WBC (Bld) [#/Vol] 11.8 10*3/uL High 4.4-11.0 [facility] Comment on above: Performed By: #### L 100.0100, L500.2500 #### [facility] [address] [place], [address] Gram Stainon 09-10-2024 GS Acceptable Specimen? Yes (<25 Epithelial cells per/lpf) Gram Stain 2+ Gram positive cocci 2+ Gram positive rods 1+ Red Blood Cells 1+ White Blood Cells 1+ Epithelial cells Normal [facility] Comment on above: Performed By: #### M 100.2400, M100.2000 ####[facility] [address] [place], [address] Basic Metabolic Profile (BMP )on 09-09-2024 BUN/CRE 35.1 RATIO High 10-20 [facility] Comment on above: Performed By: #### L 100.0100, L500.2500 #### [facility] [address] [place], [address] CA,Total 8.4 mg/dL Low 8.5-10.1 [facility] Comment on above: Performed By: #### L 100.0100, L500.2500 #### [facility] [address] [place], [address] Chloride [Moles/Vol] 107 mmol/L Normal 98-107 [facility] Comment on above: Performed By: #### L 100.0100, L500.2500 #### [facility] [address] [place], [address] CO2 [Moles/Vol] 24.0 mmol/L Normal 21.0-32.0 [facility] Comment on above: Performed By: #### L 100.0100, L500.2500 #### [facility] [address] [place], [address] Creatinine [Mass/Vol] 0.94 mg/dL Normal 0.70-1.30 [facility] Comment on above: Result Comment: The validity of the calculated GFR GFRAA in patients over 70 years has not been determined. Clinical correlation is essential. Performed By: #### L 100.0100, L500.2500 #### [facility] [address] [place], [address] ECRCL 57.13 ml/min Normal [facility] Comment on above: Performed By: #### L 100.0100, L500.2500 #### [facility] [address] [place], [address] EST GFR - AA 98 mL/min Normal >60 [facility] Comment on above: Result Comment: Afri can Israeli GFR Calc Performed By: #### L 100.0100, L500.2500 #### [facility] [address] [place], [address] GAP 8 Normal 5-15 [facility] Comment on above: Performed By: #### L 100.0100, L500.2500 #### [facility] [address] [place], [address] GFR/1.73 sq M.predicted among non-blacks MDRD (S/P/Bld) [Vol rate/Area] 81 mL/min/{1.73_m2} Normal >60 [facility] Comment on above: Result Comment: Non- GFR Calc Performed By: #### L 100.0100, L500.2500 #### [facility] [address] [place], [address] Glucose [Mass/Vol] 146 mg/dL High 74-106 [facility] [place] Comment on above: Result Comment: Fast ing Glucose result greater than or equal to 126 mg/dL suggests DIABETES MELLITUS per A.D.A. criteria. Performed By: #### L 100.0100, L500.2500 #### [facility] [address] [place], [address] Potassium [Moles/Vol] 3.2 mmol/L Low 3.5-5.1 [facility] Comment on above: Performed By: #### L 100.0100, L500.2500 #### [facility] [address] [place], [address] Sodium [Moles/Vol] 139 mmol/L Normal 136-145 [facility] [place] Comment on above: Performed By: #### L 100.0100, L500.2500 #### [facility] [address] [place], [address] Urea nitrogen [Mass/Vol] 33 mg/dL High 7-18 [facility] Comment on above: Performed By: #### L 100.0100, L500.2500 #### [facility] [address] [place], [address] CBC W/Diff, Automatedon 08-30 Absolute Lymph 0.57 X10 3/uL Low 0.83-4.51 [facility] Comment on above: Performed By: #### L 100.0100, L500.2500 #### [facility] [address] [place], [address] Absolute Neut 15.4 X10 3/uL High 2.0-7.7 [facility] Comment on above: Performed By: #### L 100.0100, L500.2500 #### [facility] [address] [place], [address] Basophils/100 WBC (Bld) 0.1 % Normal 0-1 [facility] Comment on above: Performed By: #### L 100.0100, L500.2500 #### [facility] [address] [place], [address] Eosinophils/100 WBC (Bld) 0.0 % Normal 0-5 [facility] Comment on above: Performed By: #### L 100.0100, L500.2500 #### [facility] [address] [place], [address] Erythrocyte distribution width (RBC) [Ratio] 16.6 % High 11.6-14.6 [facility] Comment on above: Performed By: #### L 100.0100, L500.2500 #### [facility] [address] [place], [address] Hematocrit (Bld) [Volume fraction] 43.3 % Normal 40-54 [facility] Comment on above: Performed By: #### L 100.0100, L500.2500 #### [facility] [address] [place], [address] Hemoglobin (Bld) [Mass/Vol] 14.4 g/dL Normal 13.0-16.5 [facility] Comment on above: Performed By: #### L 100.0100, L500.2500 #### [facility] [address] [place], [address] IG% 0.700 Normal 0.0-0.9 [facility] Comment on above: Result Comment: IG% - Immature Granulocytes (promyelocytes, myelocytes and metamyelocytes) > 1% indicates that a LEFT SHIFT is Present. Performed By: #### L 100.0100, L500.2500 #### [facility] [address] [place], [address] Lymphocytes/100 WBC (Bld) 3.3 % Low 19-41 [facility] Comment on above: Performed By: #### L 100.0100, L500.2500 #### [facility] [address] [place], [address] MCH (RBC) [Entitic mass] 31.4 pg Normal 27.0-32.0 [facility] Comment on above: Performed By: #### L 100.0100, L500.2500 #### [facility] [address] [place], [address] MCHC (RBC) [Mass/Vol] 33.3 g/dL Normal 32-36 [facility] Comment on above: Performed By: #### L 100.0100, L500.2500 #### [facility] [address] [place], [address] MCV (RBC) [Entitic vol] 94.5 fL High 80-94 [facility] Comment on above: Performed By: #### L 100.0100, L500.2500 #### [facility] [address] [place], [address] Monocytes/100 WBC (Bld) 7.2 % Normal 0-10 [facility] Comment on above: Performed By: #### L 100.0100, L500.2500 #### [facility] [address] [place], [address] Neutrophils/100 WBC (Bld) 88.7 % High 47-70 [facility] Comment on above: Performed By: #### L 100.0100, L500.2500 #### [facility] [address] [place], [address] Nucleated RBC (Bld) [#/Vol] 0 10*3/uL Normal 0-5 [facility] Comment on above: Performed By: #### L 100.0100, L500.2500 #### [facility] [address] [place], [address] Platelet mean volume (Bld) [Entitic vol] 11.4 fL Normal 6.2-12.0 [facility] Comment on above: Performed By: #### L 100.0100, L500.2500 #### [facility] [address] [place], [address] Platelets (Bld) [#/Vol] 178 10*3/uL Normal 150-450 [facility] Comment on above: Performed By: #### L 100.0100, L500.2500 #### [facility] [address] [place], [address] RBC (Bld) [#/Vol] 4.58 10*6/uL Low 4.6-6.2 [facility] Comment on above: Performed By: #### L 100.0100, L500.2500 #### [facility] [address] [place], [address] RDW SD 56.1 fl High 35.1-43.9 [facility] Comment on above: Performed By: #### L 100.0100, L500.2500 #### [facility] [address] [place], [address] WBC (Bld) [#/Vol] 17.4 10*3/uL High 4.4-11.0 [facility] Comment on above: Performed By: #### L 100.0100, L500.2500 #### [facility] [address] [place], [address] [facility] Telephone ([facility]) CLARK LYLES ([id number]) 1935 M Date Time Provider Department 09/09/24 BRIGITTE SEGAL [facility] During your visit today, we recorded the following information about you: Brigitte Segal APRN.JANET 09/09/2024 10:05 AM Signed Patient was admitted to [facility] on September 07 to 2024 for altered [...] Date Reviewed: 03/27/2024 Reviewed by: Brigitte Segal APRN.STRATEGIC DEVELOPMENT MANAGER - Fully Assessed Prescriptions as of 09/09/2024 [...] Meds Comments as of 04/18/2021: Taking Saw [place]. Problem List As Of Date 09/09/2024 Noted Resolved BENIGN HYPERTENSION [I10] 01/08/2006 Anxiety state [F41.1] 01/05/2009 GERD (gastroesophageal reflux disease) [K21.9] 01/10/2011 BPH (benign prostatic hyperplasia) [N40.0] 03/17/2013 PAD (peripheral artery disease) ([facility]) [I73.9] 02/28/2014 Hyperlipidemia LDL goal <100 [E78.5] 03/28/2016 Hyperbilirubinemia [E80.6] 05/10/2016 Parkinson's disease (HCC) [G20.A1] 07/11/2017 Angina pectoris (HCC) [I20.9] 08/25/2019 Restless legs syndrome [G25.81] 01/27/2020 Iron deficiency anemia due to chronic blood los*01/27/2020 Coronary artery disease involving algaaciq rabago*12/22/2020 S/P primary angioplasty with coronary stent [Z9*12/22/2020 Fall from standing [W19.XXXA] 09/20/2021 Encounter for support and coordination of trans*08/11/2023 Acute respiratory failure with hypoxia (HCC) [J*09/25/2023 Encounter Status:Closed by BRIGITTE SEGAL on 09/09/24 Normal [facility] Gram stainOrdered By: Lester stein on 09-09-2024 Microscopic observation Gram stain Nom (Unsp spec) [facility] Legionella Antigen Urineon 0 09-09-2024 LEGU URINE, CLEAN CATCH Legionella Antigen result interpretation: L pneumo Ag Ur Ql Negative Presumptive negative for Legionella pneumophila serogroup 1 antigen in urine, suggesting no recent or current infection. Legionella Ag, Urine Negative (See interpretation below) Normal [facility] Comment on above: Performed By: #### L 100.0100, L500.2500 #### [facility] [address] [place], [address] Microbial respiratory cultur eOrdered By: Lester Perdomo on 09-09-2024 Microorganism identified Cx Nom (Unsp spec) [facility] Strep pneumoniae Antig(UR,CS F)on 09-09-2024 STPAG URINE INTERPRETATION Strep pneumoniae Antig(UR,CSF) Negative Urine Presumptive negative for pneumococcal pneumonia, suggesting no current or recent pneumococcal infection. Infection due to S pneumoniae cannot be ruled out since the antigen present in the sample may be below the detection limit of the test. Strep pneumo Test Negative URINE (See interpretation below) Normal [facility] Comment on above: Performed By: #### L 100.0100, L500.2500 #### [facility] [address] [place], [address] Urine Legionella pneumophila antigen detectionOrdered By: Lester Perdomo on 09-09-2024 L. pneumophila Ag Ql (U) [facility] Abdomen Single Viewon 2024 Abdomen Single View [facility] Imaging Services [address] [place] [address] Abdomen Single View MR#: [id number] Acct: [id number] Name: CLARK LYLES Rep #: [id number] : 1935 M 88 [facility] Brigitte Segal, PAINTER TOUCH UP Status: ADM IN Study: Abdomen Single View Date of Exam: 09/08/24 Exam# [id number] Ordering Dr: Lester Perdomo DO PROCEDURE: ABDOMEN [...] right inferior pubic ramus bone. [facility] Brigitte Segal; Dr. Lester Perdomo DO Technical Document Writer: Signed Normal [facility] Basic Metabolic Profile (BMP )on 09-08-2024 BUN/CRE 33.0 RATIO High 10-20 [facility] Comment on above: Performed By: #### L 500.2500, L501.5200, L100.0100, L501.2300 ####[facility] [address] [place], [address] CA,Total 8.6 mg/dL Normal 8.5-10.1 [facility] Comment on above: Performed By: #### L 500.2500, L501.5200, L100.0100, L501.2300 ####[facility] [address] [place], [address] Chloride [Moles/Vol] 106 mmol/L Normal 98-107 [facility] Comment on above: Performed By: #### L 500.2500, L501.5200, L100.0100, L501.2300 ####[facility] [address] [place], [address] CO2 [Moles/Vol] 22.0 mmol/L Normal 21.0-32.0 [facility] Comment on above: Performed By: #### L 500.2500, L501.5200, L100.0100, L501.2300 ####[facility] [address] [place], [address] Creatinine [Mass/Vol] 0.82 mg/dL Normal 0.70-1.30 [facility] Comment on above: Result Comment: The validity of the calculated GFR GFRAA in patients over 70 years has not been determined. Clinical correlation is essential. Performed By: #### L 500.2500, L501.5200, L100.0100, L501.2300 ####[facility] [address] [place], [address] ECRCL 66.59 ml/min Normal [facility] Comment on above: Performed By: #### L 500.2500, L501.5200, L100.0100, L501.2300 ####[facility] [address] [place], [address] EST GFR - AA 115 mL/min Normal >60 [facility] Comment on above: Result Comment: Afri can Israeli GFR Calc Performed By: #### L 500.2500, L501.5200, L100.0100, L501.2300 ####[facility] [address] [place], [address] GAP 11 Normal 5-15 [facility] Comment on above: Performed By: #### L 500.2500, L501.5200, L100.0100, L501.2300 ####[facility] [address] [place], [address] GFR/1.73 sq M.predicted among non-blacks MDRD (S/P/Bld) [Vol rate/Area] 95 mL/min/{1.73_m2} Normal >60 [facility] Comment on above: Result Comment: Non- GFR Calc Performed By: #### L 500.2500, L501.5200, L100.0100, L501.2300 ####[facility] [address] [place], [address] Glucose [Mass/Vol] 150 mg/dL High 74-106 [facility] Comment on above: Result Comment: Fast ing Glucose result greater than or equal to 126 mg/dL suggests DIABETES MELLITUS per A.D.A. criteria. Performed By: #### L 500.2500, L501.5200, L100.0100, L501.2300 ####[facility] [address] [place], [address] Potassium [Moles/Vol] 3.2 mmol/L Low 3.5-5.1 [facility] Comment on above: Performed By: #### L 500.2500, L501.5200, L100.0100, L501.2300 ####[facility] [address] [place], [address] Sodium [Moles/Vol] 138 mmol/L Normal 136-145 [facility] Comment on above: Performed By: #### L 500.2500, L501.5200, L100.0100, L501.2300 ####[facility] [address] [place], [address] Urea nitrogen [Mass/Vol] 27 mg/dL High 7-18 [facility] Comment on above: Performed By: #### L 500.2500, L501.5200, L100.0100, L501.2300 ####[facility] [address] [place], [address] CBC W/Diff, Automatedon 02-1 0-2024 Absolute Lymph 0.32 X10 3/uL Low 0.83-4.51 [facility] Comment on above: Performed By: #### L 500.2500, L501.5200, L100.0100, L501.2300 #### [facility] [address] [place], [address] Absolute Neut 7.4 X10 3/uL Normal 2.0-7.7 [facility] Comment on above: Performed By: #### L 500.2500, L501.5200, L100.0100, L501.2300 #### [facility] Laboratory [address] [place], [address] Basophils/100 WBC (Bld) 0.1 % Normal 0-1 [facility] Comment on above: Performed By: #### L 500.2500, L501.5200, L100.0100, L501.2300 #### [facility] [address] [place], [address] Eosinophils/100 WBC (Bld) 0.0 % Normal 0-5 [facility] Comment on above: Performed By: #### L 500.2500, L501.5200, L100.0100, L501.2300 #### [facility] [address] [place], [address] Erythrocyte distribution width (RBC) [Ratio] 16.0 % High 11.6-14.6 [facility] Comment on above: Performed By: #### L 500.2500, L501.5200, L100.0100, L501.2300 #### [facility] [address] [place], [address] Hematocrit (Bld) [Volume fraction] 42.9 % Normal 40-54 [facility] Comment on above: Performed By: #### L 500.2500, L501.5200, L100.0100, L501.2300 #### [facility] [address] [place], [address] Hemoglobin (Bld) [Mass/Vol] 15.4 g/dL Normal 13.0-16.5 [facility] Comment on above: Performed By: #### L 500.2500, L501.5200, L100.0100, L501.2300 #### [facility] [address] [place], [address] IG% 0.800 Normal 0.0-0.9 [facility] Comment on above: Result Comment: IG% - Immature Granulocytes (promyelocytes, myelocytes and metamyelocytes) > 1% indicates that a LEFT SHIFT is Present. Performed By: #### L 500.2500, L501.5200, L100.0100, L501.2300 #### [facility] [address] [place], [address] Lymphocytes/100 WBC (Bld) 4.1 % Low 19-41 [facility] Comment on above: Performed By: #### L 500.2500, L501.5200, L100.0100, L501.2300 #### [facility] [address] [place], [address] MCH (RBC) [Entitic mass] 33.1 pg High 27.0-32.0 [facility] Comment on above: Performed By: #### L 500.2500, L501.5200, L100.0100, L501.2300 #### [facility] [address] [place], [address] MCHC (RBC) [Mass/Vol] 35.9 g/dL Normal 32-36 [facility] Comment on above: Performed By: #### L 500.2500, L501.5200, L100.0100, L501.2300 #### [facility] [address] [place], [address] MCV (RBC) [Entitic vol] 92.3 fL Normal 80-94 [facility] Comment on above: Performed By: #### L 500.2500, L501.5200, L100.0100, L501.2300 #### [facility] [address] [place], [address] Monocytes/100 WBC (Bld) 2.0 % Normal 0-10 [facility] Comment on above: Performed By: #### L 500.2500, L501.5200, L100.0100, L501.2300 #### [facility] [address] [place], [address] Neutrophils/100 WBC (Bld) 93.0 % High 47-70 [facility] Comment on above: Performed By: #### L 500.2500, L501.5200, L100.0100, L501.2300 #### [facility] [address] [place], [address] Nucleated RBC (Bld) [#/Vol] 0 10*3/uL Normal 0-5 [facility] Comment on above: Performed By: #### L 500.2500, L501.5200, L100.0100, L501.2300 #### [facility] [address] [place], [address] Platelet mean volume (Bld) [Entitic vol] 11.6 fL Normal 6.2-12.0 [facility] Comment on above: Performed By: #### L 500.2500, L501.5200, L100.0100, L501.2300 #### [facility] [address] [place], [address] Platelets (Bld) [#/Vol] 183 10*3/uL Normal 150-450 [facility] Comment on above: Performed By: #### L 500.2500, L501.5200, L100.0100, L501.2300 #### [facility] [address] [place], [address] RBC (Bld) [#/Vol] 4.65 10*6/uL Normal 4.6-6.2 [facility] Comment on above: Performed By: #### L 500.2500, L501.5200, L100.0100, L501.2300 #### [facility] [address] [place], [address] RDW SD 52.6 fl High 35.1-43.9 [facility] Comment on above: Performed By: #### L 500.2500, L501.5200, L100.0100, L501.2300 #### [facility] [address] [place], [address] WBC (Bld) [#/Vol] 7.9 10*3/uL Normal 4.4-11.0 [facility] Comment on above: Performed By: #### L 500.2500, L501.5200, L100.0100, L501.2300 #### [facility] [address] [place], [address] CTA Chest W/WO Contraston CTA Chest W/WO Contrast [facility] Imaging Services [address] [place] [address] CTA Chest W/WO Contrast MR#: [id number] Acct: [id number] Name: CLARK LYLES Rep #: [id number] : 1935 M 88 From: Jose araujo MD PCP: Brigitte Segal, PAINTER TOUCH UP Status: ADM IN Study: CTA Chest W/WO Contrast Date of Exam: 09/08/24 Exam# [id number] Ordering Dr: Lester Perdomo DO PROCEDURE: CTA [...] use of iterative reconstruction technique). Reading Location: [place] [address] CC: PAINTER TOUCH UP Brigitte Segal; Dr. Lester Perdomo DO Technical Document Writer: Signed Normal [facility] Echo, Limited Studyon 2024 Echo, Limited Study [facility] [address] [place] [address] Echo, Limited Study 09/08/24 1446 MR#: [id number] Acct: [id number] Name: CLARK LYLES Rep #: [id number] : 1935 88 From: Dejuan Brooks MD Attending Dr: Dr. Lester Perdomo DO Status: ADM IN Ordering Dr: Lester Perdomo DO Date: 09/08/24 Location: [facility] Sex: M C Admitted: 09/07/24 Reason [...] Dictated: 09/08/24 1446 Date Transcribed: 09/09/24 0834 Technical Document Writer: Signed Normal [facility] Magnesiumon 09-08-2024 Magnesium [Mass/Vol] 1.8 mg/dL Normal 1.6-2.6 [facility] Comment on above: Performed By: #### L 500.2500, L501.5200, L100.0100, L501.2300 ####[facility] [address] [place], [address] Magnesium measurementOrdered By: Jerrell Faith on 09-08-2024 Magnesium [Mass/Vol] 1.8 mg/dL 1.6-2.6 [facility] Phosphoruson 09-08-2024 Phosphate [Mass/Vol] 3.9 mg/dL Normal 2.5-4.9 [facility] Comment on above: Performed By: #### L 500.2500, L501.5200, L100.0100, L501.2300 ####[facility] [address] [place], [address] 12 Lead EKGon 09-07-2024 12 Lead EKG [facility] Cardiovascular Services [address] [place] [address] 12 Lead EKG 09/07/24 1105 MR#: [id number] Acct: [id number] Name: CLARK LYLES Rep #: [id number] : 1935 88 From: Dejuan Brooks MD Attending Dr: Dr. Lester Perdomo DO Status: ADM IN Ordering Dr: Neo Tejeda DO Date: 09/07/24 Location: [facility] Sex: M C Admitted: 09/07/24 Test [...] normal ECG Confirmed by DEJUAN BROOKS MD ([id number]), research editor FARSHAD PANDYA ([id number]) on 09/08/2024 11:07:09 AM Referred By: Confirmed By: DEJUAN BROOKS MD 09/08/24 1107 Date Dejuan Brooks MD CC: MARIANA Segal; Dr. Lester Perdomo DO; Dr. Neo Tejeda DO Signed Normal [facility] Activated partial thrombopla stin time (aPTT) in platelet poor plasma by coagulation aOrdered By: Neo Tejeda on 09-07-2024 aPTT Coag (PPP) [Time] 26.5 s 24.1-36.2 [facility] Assessment of wrist artery p atency prior to arterial punctureOrdered By: Neo Tejeda on 09-07-2024 Arterial patency Wrist artery --pre arterial puncture Positive [facility] BNP (brain natriuretic pepti de measurement)Ordered By: Neo Tejeda on 09-07-2024 Natriuretic peptide B (Bld) [Mass/Vol] 221.1 pg/mL High 0-100 [facility] BNP,B-Type NATRIURETIC PEPTI Giovanni 09-07-2024 Natriuretic peptide B (Bld) [Mass/Vol] 221.1 pg/mL High 0-100 [facility] Comment on above: Performed By: #### L 503.6620 ####[facility] [address] [place], [place], [id number] Basic Metabolic Profile (BMP )on 09-07-2024 BUN/CRE 19.2 RATIO Normal 10-20 [facility] Comment on above: Order Comment: 'TROP ' Serial specimen #1, #2 or #3: 1 Performed By: #### L 500.2500, L501.4020, L100.0100, L300.3900, L300.4310 ####[facility] [address] [place], [address] CA,Total 8.7 mg/dL Normal 8.5-10.1 [facility] Comment on above: Order Comment: 'TROP ' Serial specimen #1, #2 or #3: 1 Performed By: #### L 500.2500, L501.4020, L100.0100, L300.3900, L300.4310 ####[facility] [address] [place], [address] Chloride [Moles/Vol] 104 mmol/L Normal 98-107 [facility] Comment on above: Order Comment: 'TROP ' Serial specimen #1, #2 or #3: 1 Performed By: #### L 500.2500, L501.4020, L100.0100, L300.3900, L300.4310 ####[facility] [address] [place], [address] CO2 [Moles/Vol] 18.0 mmol/L Low 21.0-32.0 [facility] Comment on above: Order Comment: 'TROP ' Serial specimen #1, #2 or #3: 1 Performed By: #### L 500.2500, L501.4020, L100.0100, L300.3900, L300.4310 ####[facility] [address] [place], [address] Creatinine [Mass/Vol] 1.04 mg/dL Normal 0.70-1.30 [facility] Comment on above: Order Comment: 'TROP ' Serial specimen #1, #2 or #3: 1 Result Comment: The validity of the calculated GFR GFRAA in patients over 70 years has not been determined. Clinical correlation is essential. Performed By: #### L 500.2500, L501.4020, L100.0100, L300.3900, L300.4310 ####[facility] [address] [place], [address] ECRCL 49.04 ml/min Normal [facility] Comment on above: Order Comment: 'TROP ' Serial specimen #1, #2 or #3: 1 Performed By: #### L 500.2500, L501.4020, L100.0100, L300.3900, L300.4310 ####[facility] [address] [place], [address] EST GFR - AA 87 mL/min Normal >60 [facility] Comment on above: Order Comment: 'TROP ' Serial specimen #1, #2 or #3: 1 Result Comment: Afri can Israeli GFR Calc Performed By: #### L 500.2500, L501.4020, L100.0100, L300.3900, L300.4310 ####[facility] [address] [place], [address] GAP 16 High 5-15 [facility] Comment on above: Order Comment: 'TROP ' Serial specimen #1, #2 or #3: 1 Performed By: #### L 500.2500, L501.4020, L100.0100, L300.3900, L300.4310 ####[facility] [address] [place], [address] GFR/1.73 sq M.predicted among non-blacks MDRD (S/P/Bld) [Vol rate/Area] 72 mL/min/{1.73_m2} Normal >60 [facility] Comment on above: Order Comment: 'TROP ' Serial specimen #1, #2 or #3: 1 Result Comment: Non- GFR Calc Performed By: #### L 500.2500, L501.4020, L100.0100, L300.3900, L300.4310 ####[facility] [address] [place], [address] Glucose [Mass/Vol] 77 mg/dL Normal 74-106 [facility] Comment on above: Order Comment: 'TROP ' Serial specimen #1, #2 or #3: 1 Performed By: #### L 500.2500, L501.4020, L100.0100, L300.3900, L300.4310 ####[facility] [address] [place], [address] Potassium [Moles/Vol] 3.3 mmol/L Low 3.5-5.1 [facility] Comment on above: Order Comment: 'TROP ' Serial specimen #1, #2 or #3: 1 Performed By: #### L 500.2500, L501.4020, L100.0100, L300.3900, L300.4310 ####[facility] [address] [place], [address] Sodium [Moles/Vol] 138 mmol/L Normal 136-145 [facility] Comment on above: Order Comment: 'TROP ' Serial specimen #1, #2 or #3: 1 Performed By: #### L 500.2500, L501.4020, L100.0100, L300.3900, L300.4310 ####[facility] [address] [place], [address] Urea nitrogen [Mass/Vol] 20 mg/dL High 7-18 [facility] Comment on above: Order Comment: 'TROP ' Serial specimen #1, #2 or #3: 1 Performed By: #### L 500.2500, L501.4020, L100.0100, L300.3900, L300.4310 ####[facility] [address] [place], [address] Bilirubin Test strip Ql (U)O rdered By: Neo Tejeda on 09-07-2024 Bilirubin Ql (U) Negative Negative [facility] Blood Gases by CPSon 025 MAGUI TEST Positive Normal [facility] Comment on above: Performed By: #### L 100.0100, L500.2500 #### [facility] Laboratory [address] [place], [address] Base excess Calc (Bld) [Moles/Vol] -8 mmol/L Low -2 to +2 [facility] Comment on above: Performed By: #### L 100.0100, L500.2500 #### [facility] Laboratory [address] [place], [address] Blood Gas Type ART [facility] Comment on above: Performed By: #### L 100.0100, L500.2500 #### [facility] Laboratory [address] [place], [address] CO2 [Moles/Vol] 18 mmol/L [facility] Comment on above: Performed By: #### L 100.0100, L500.2500 #### [facility] [address] [place], [address] Comment AIRVO 60L [facility] Comment on above: Performed By: #### L 100.0100, L500.2500 #### [facility] Laboratory [address] [place], [address] FI02 50.0 [facility] Comment on above: Performed By: #### L 100.0100, L500.2500 #### [facility] [address] [place], [address] HCO3 (Bld) [Moles/Vol] 17.0 mmol/L Low 22-26 [facility] Comment on above: Performed By: #### L 100.0100, L500.2500 #### [facility] Laboratory [address] [place], [address] Mode Not entered [facility] Comment on above: Performed By: #### L 100.0100, L500.2500 #### [facility] Laboratory [address] [place], [address] O2 Delivery Dev HFNC [facility] Comment on above: Performed By: #### L 100.0100, L500.2500 #### [facility] Laboratory [address] [place], [address] pCO2 28.6 mmHg Low 35-45 [facility] Comment on above: Performed By: #### L 100.0100, L500.2500 #### [facility] Laboratory [address] [place], [address] pH (Bld) 7.38 [pH] Normal 7.35-7.45 [facility] Comment on above: Performed By: #### L 100.0100, L500.2500 #### [facility] Laboratory [address] [place], [address] PO2 102 mmHG High 75-100 [facility] Comment on above: Performed By: #### L 100.0100, L500.2500 #### [facility] Laboratory [address] [place], [address] SITE R Radial Normal [facility] Comment on above: Performed By: #### L 100.0100, L500.2500 #### [facility] Laboratory [address] [place], [address] SO2 98 Normal 95-99 [facility] Comment on above: Performed By: #### L 100.0100, L500.2500 #### [facility] Laboratory [address] [place], [address] Blood base excess determinat ionOrdered By: Neo Tejeda on 09-07-2024 Base excess Calc (BldV) [Moles/Vol] -8 mmol/L Low -2-2 [facility] Blood bicarbonate measuremen tOrdered By: Neo Tejeda on 09-07-2024 HCO3 (Bld) [Moles/Vol] 17.0 mmol/L Low 22-26 W [facility] CBC W/Diff, Automatedon Absolute Lymph 0.74 X10 3/uL Low 0.83-4.51 [facility] Comment on above: Performed By: #### L 500.2500, L501.4020, L100.0100, L300.3900, L300.4310 ####[facility] [address] [place], [address] Absolute Neut 10.8 X10 3/uL High 2.0-7.7 [facility] Comment on above: Performed By: #### L 500.2500, L501.4020, L100.0100, L300.3900, L300.4310 ####[facility] [address] [place], [address] Basophils/100 WBC (Bld) 0.3 % Normal 0-1 [facility] Comment on above: Performed By: #### L 500.2500, L501.4020, L100.0100, L300.3900, L300.4310 ####[facility] [address] [place], [address] Eosinophils/100 WBC (Bld) 0.1 % Normal 0-5 [facility] Comment on above: Performed By: #### L 500.2500, L501.4020, L100.0100, L300.3900, L300.4310 ####[facility] [address] [place], [address] Erythrocyte distribution width (RBC) [Ratio] 16.4 % High 11.6-14.6 [facility] Comment on above: Performed By: #### L 500.2500, L501.4020, L100.0100, L300.3900, L300.4310 ####[facility] [address] [place], [address] Hematocrit (Bld) [Volume fraction] 46.6 % Normal 40-54 [facility] Comment on above: Performed By: #### L 500.2500, L501.4020, L100.0100, L300.3900, L300.4310 ####[facility] [address] [place], [address] Hemoglobin (Bld) [Mass/Vol] 15.8 g/dL Normal 13.0-16.5 [facility] Comment on above: Performed By: #### L 500.2500, L501.4020, L100.0100, L300.3900, L300.4310 ####[facility] [address] [place], [address] IG% 1.200 High 0.0-0.9 [facility] Comment on above: Result Comment: IG% - Immature Granulocytes (promyelocytes, myelocytes and metamyelocytes) > 1% indicates that a LEFT SHIFT is Present. Performed By: #### L 500.2500, L501.4020, L100.0100, L300.3900, L300.4310 ####[facility] [address] [place], [address] Lymphocytes/100 WBC (Bld) 5.8 % Low 19-41 [facility] Comment on above: Performed By: #### L 500.2500, L501.4020, L100.0100, L300.3900, L300.4310 ####[facility] [address] [place], [address] MCH (RBC) [Entitic mass] 31.5 pg Normal 27.0-32.0 [facility] Comment on above: Performed By: #### L 500.2500, L501.4020, L100.0100, L300.3900, L300.4310 ####[facility] [address] [place], [address] MCHC (RBC) [Mass/Vol] 33.9 g/dL Normal 32-36 [facility] Comment on above: Performed By: #### L 500.2500, L501.4020, L100.0100, L300.3900, L300.4310 ####[facility] [address] [place], [address] MCV (RBC) [Entitic vol] 93.0 fL Normal 80-94 [facility] Comment on above: Performed By: #### L 500.2500, L501.4020, L100.0100, L300.3900, L300.4310 ####[facility] [address] [place], [address] Monocytes/100 WBC (Bld) 7.4 % Normal 0-10 [facility] Comment on above: Performed By: #### L 500.2500, L501.4020, L100.0100, L300.3900, L300.4310 ####[facility] [address] [place], [address] Neutrophils/100 WBC (Bld) 85.2 % High 47-70 [facility] Comment on above: Performed By: #### L 500.2500, L501.4020, L100.0100, L300.3900, L300.4310 ####[facility] [address] [place], [address] Nucleated RBC (Bld) [#/Vol] 0 10*3/uL Normal 0-5 [facility] Comment on above: Performed By: #### L 500.2500, L501.4020, L100.0100, L300.3900, L300.4310 ####[facility] [address] [place], [address] Platelet mean volume (Bld) [Entitic vol] 11.0 fL Normal 6.2-12.0 [facility] Comment on above: Performed By: #### L 500.2500, L501.4020, L100.0100, L300.3900, L300.4310 ####[facility] [address] [place], [address] Platelets (Bld) [#/Vol] 195 10*3/uL Normal 150-450 [facility] Comment on above: Performed By: #### L 500.2500, L501.4020, L100.0100, L300.3900, L300.4310 ####[facility] [address] [place], [address] RBC (Bld) [#/Vol] 5.01 10*6/uL Normal 4.6-6.2 [facility] Comment on above: Performed By: #### L 500.2500, L501.4020, L100.0100, L300.3900, L300.4310 ####[facility] [address] [place], [address] RDW SD 53.0 fl High 35.1-43.9 [facility] Comment on above: Performed By: #### L 500.2500, L501.4020, L100.0100, L300.3900, L300.4310 ####[facility] [address] [place], [address] WBC (Bld) [#/Vol] 12.7 10*3/uL High 4.4-11.0 [facility] Comment on above: Performed By: #### L 500.2500, L501.4020, L100.0100, L300.3900, L300.4310 ####[facility] [address] [place], [address] CTA Head AND Neck W/ Contras ton 09-07-2024 CTA Head AND Neck W/ Contrast [facility] Imaging Services [address] [place] [address] CTA Head AND Neck W/ Contrast MR#: [id number] Acct: [id number] Name: CLARK LYLES Rep #: [id number] : 1935 M 88 From: Axel Marie MD PCP: Brigitte Segal, PAINTER TOUCH UP Status: REG ER Study: CTA Head AND Neck W/ Contrast Date of Exam: Exam# [id number] Ordering Dr: Neo Tejeda DO PROCEDURE: CTA [...] CC: MARIANA Segal; Dr. Neo Tejeda DO Technical Document Writer: Signed Normal [facility] Calcium oxalate crystals det ection in urine sediment by light microscopyOrdered By: Neo Tejeda on 09-07-2024 Calcium oxalate crystals LM Ql (Urine sed) 1+ /hpf [facility] Chest 1 Viewon 09-07-2024 Chest 1 View [facility] Imaging Services [address] [place], [place] [address] Chest 1 View MR#: [id number] Acct: [id number] Name: LYLESCLARK LAMA Rep #: [id number] : 1935 M 88 From: Axel Marie MD PCP: MARIANA Humphreys Status: REG ER Study: Chest 1 View Date of Exam: 09/07/24 Exam# [id number] Ordering Dr: Neo Tejeda DO PROCEDURE: CHEST 1 VIEW REASON FOR EXAM: Cough TECHNIQUE: Frontal view of the chest. COMPARISON: Reviewed. FINDINGS: The cardiac and mediastinal contours are normal. The lungs are clear. RAD/Chest 1 View IMPRESSION: No acute radiographic process. Reading Location: [facility] CC: PAINTER TOUCH UP Brigitte Segal; Dr. Neo Tejeda DO Technical Document Writer: Signed Normal [facility] D-Dimer Quantitative (DVT/PE )on 09-07-2024 D-DIMER QUANT 1.63 FEU/ug/m Invalid Interpretation Code 0.27-0.49 [facility] Comment on above: Result Comment: D-Di marv ELEVATED (>0.49): Additional studies and clinical assessments are indicated to conclude diagnosis of: Deep Vein Thrombosis (DVT) or Pulmonary Embolism (PE) CRITICAL VALUE CALLED TO NIKOLAS HILL 09/07/24 1307 Robyn Lizarraga. RESULTS READ BACK BY SAME. Performed By: #### L 100.0100, L500.2500 #### [facility] Laboratory [address] [place], [address] Elbow min 3 Viewson 09-07-19 25 Elbow min 3 Views [facility] Imaging Services [address] [place] [address] Elbow min 3 Views MR#: [id number] Acct: [id number] Name: CLARK LYLES Rep #: [id number] : 1935 M 88 From: Axel Marie MD PCP: MARIANA Humphreys Status: REG ER Study: Elbow min 3 Views Date of Exam: 09/07/24 Exam# [id number] Ordering Dr: Neo Tejeda DO PROCEDURE: ELBOW [...] CC: MARIANA Segal; Dr. Neo Tejeda DO Technical Document Writer: Signed Normal [facility] Elbow min 3 Views [facility] Imaging Services [address] [place] [address] Elbow min 3 Views MR#: [id number] Acct: [id number] Name: CLARK LYLES Rep #: [id number] : 1935 M 88 From: Axel Marie MD PCP: MARIANA Humphreys Status: REG ER Study: Elbow min 3 Views Date of Exam: 09/07/24 Exam# [id number] Ordering Dr: Neo Tejeda DO PROCEDURE: ELBOW [...] No other acute radiographic process. [facility] CC: MARIANA Segal; Dr. Neo Tejeda DO Technical Document Writer: Signed Normal [facility] Emergency Department Summary on 09-07-2024 Emergency Department Summary [facility] Medical Records Department [address] [place] [address] Emergency Department Summary 09/07/24 MR#: [id number] Acct: [id number] Name: CLARK LYLES Rep #: [id number] : 1935 88 From: Neo Tejeda DO PCP: Brigitte Segal, PAINTER TOUCH UP Status:ADM IN Location: [place] [address] HPI History of Present Illness Chief Complaint: Stroke Alert [facility] Medical History (Updated 09/07/24 @ 13:[address] Jerrell Faith MD) COVID-19 virus detected (08/23/20) Anxiety and depression Chronic anemia Acute respiratory failure with hypoxia Hypoxia Pneumonia due to COVID-19 virus GI bleed (12/2019) Atherosclerosis of coronary artery of algaaciq heart without angina pectoris Peripheral vascular occlusive [...] was fo (more content not included)... Normal [facility] H AND P Exam - Hospitaliston 09-07-2024 H&P Exam - Hospitalist [facility] Medical Records Department [address] [place] [address] H P Exam - Hospitalist 09/07/24 1317 MR#: [id number] Acct: [id number] Name: CLARK LYLES Rep #: [id number] : 1935 88 From: Jerrell Faith MD PCP: Brigitte Segal, PAINTER TOUCH UP Status:ADM IN Location: [place] [address] HPI - General General Date of Admission: [...] admitted to monitored bed for further management [facility] Medical History (Updated 09/07/24 @ 13:[address] Jerrell Faith MD) COVID-19 virus detected (08/23/20) Anxiety and depression Chronic anemia Acute respiratory failure with hypoxia Hypoxia Pneumonia due to COVID-19 virus GI bleed (12/2019) Atherosclerosis of coronary artery of algaaciq heart without angina pectoris Peripheral vascular occlusive [...] 10:23 02/ (more content not included)... Normal [facility] Hyaline casts LM.LPF (Urine sed) [#/Area]Ordered By: Neo Tejeda on 09-07-2024 Hyaline casts (Urine sed) [#/Area] 0 /[LPF] 0-5 [facility] Influenza virus A and B and SARS-CoV-2 (COVID-19) and Respiratory syncytial virus RNAOrdered By: Neo Tejeda on 09-07-2024 SARS-CoV-2 (COVID-19) RNA CAMERON+probe Ql (Unsp spec) [facility] International normalized rat io (INR) calculationOrdered By: Neo Tejeda on 09-07-2024 INR Coag (Bld) [Relative time] 1.0 {INR} [facility] Ketones Test strip Ql (U)Ord ered By: Neo Tejeda on 09-07-2024 Ketones Ql (U) 5 mg/dl High Negative [facility] L501.4020on 09-07-2024 TROPONIN-I HS 68 pg/mL Normal 3.0-78.0 [facility] Comment on above: Order Comment: Comme nts: SPECIMEN #3'TROP' Serial specimen #1, #2 or #3: 3 Result Comment: Plea se Note: New Test Units and Gender Specific Reference Ranges. For more information see Policy Stat Procedure [place] High Sensitivity Troponin (TNIH) and attachments. Performed By: #### L 100.0100, L500.2500 #### [facility] Laboratory [address] [place], [address] TROPONIN-I HS 76 pg/mL Normal 3.0-78.0 [facility] Comment on above: Order Comment: Comme nts: SPECIMEN #2'TROP' Serial specimen #1, #2 or #3: 2 Result Comment: Plea se Note: New Test Units and Gender Specific Reference Ranges. For more information see Policy Stat Procedure [place] High Sensitivity Troponin (TNIH) and attachments. Performed By: #### L 100.0100, L500.2500 #### [facility] Laboratory [address] [place], [address] TROPONIN-I HS 63 pg/mL Normal 3.0-78.0 [facility] Comment on above: Order Comment: 'TROP ' Serial specimen #1, #2 or #3: 1 Result Comment: Plea se Note: New Test Units and Gender Specific Reference Ranges. For more information see Policy Stat Procedure [place] High Sensitivity Troponin (TNIH) and attachments. Performed By: #### L 500.2500, L501.4020, L100.0100, L300.3900, L300.4310 ####[facility] [address] [place], [address] M100.678on 09-07-2024 M100.678 Pending SARS-CoV-2 (COVID 19) Negative INFLUENZA A Negative INFLUENZA B Negative RSV PCR Negative Normal [facility] Comment on above: Performed By: #### L 100.0100, L500.2500 #### [facility] Laboratory [address] [place], [address] Measurement, pHOrdered By: Hugo Tejeda on 09-07-2024 pH (Unsp spec) 7.38 [pH] 7.35-7.45 [facility] Microscopic analysis of urin e for red blood cells (RBC)Ordered By: Neo Tejeda on 09-07-2024 Microscopic analysis of urine for red blood cells (RBC) 0-5 SEEN /hpf 0-5 [facility] Mucus LM Ql (Urine sed)Order ed By: Neo Tejeda on 09-07-2024 Mucus Ql (Urine sed) 1+ /hpf [facility] Nitrite Test strip Ql (U)Ord ered By: Neo Tejeda on 09-07-2024 Nitrite Ql (U) Negative Negative [facility] No Panel InformationOrdered By: Neo Tejeda on 09-07-2024 Blood Gas Clinical Comments AIRVO 60L [facility] Blood Gas Sample Site R Radial [facility] Blood Gas Specimen Type ART [facility] Blood Gas Vent Mode Not entered [facility] Oxygen Delivery Device HFNC [facility] Partial Thromboplast Timeon 09-07-2024 aPTT Coag (Bld) [Time] 26.5 s Normal 24.1-36.2 [facility] Comment on above: Performed By: #### L 500.2500, L501.4020, L100.0100, L300.3900, L300.4310 ####[facility] [address] [place], [place], [address] Protein Test strip Ql (U)Ord ered By: Neo Tejeda on 09-07-2024 Protein Ql (U) 30 mg/dl High Negative [facility] Prothrombin Time w/INRon INR Coag (PPP) [Relative time] 1.0 {INR} Normal [facility] Comment on above: Performed By: #### L 500.2500, L501.4020, L100.0100, L300.3900, L300.4310 ####[facility] [facility] [address] [place], [place], [id number] PT Coag (PPP) [Time] 13.6 s Normal 11.7-14.9 [facility] Comment on above: Performed By: #### L 500.2500, L501.4020, L100.0100, L300.3900, L300.4310 ####[facility] [address] [place], [address] Prothrombin timeOrdered By: Neo Tejeda on 09-07-2024 PT Coag (PPP) [Time] 13.6 s 11.7-14.9 [facility] RESPIRATORY PANEL MOLECULARo n 09-07-2024 [...] Not Detected RSV B Not Detected Normal [facility] Comment on above: Performed By: #### L 100.0100, L500.2500 #### [facility] Laboratory [address] [place], [address] Respiratory pathogens detect ion panel by molecular detection methodOrdered By: Jerrell Faith on 09-07-2024 Respiratory pathogens DNA and RNA panel CAMERON+probe (Resp) [facility] STROKE Brain/Head without Co nton 09-07-2024 STROKE Brain/Head without Cont [facility] Imaging Services [address] [place], [place] [address] STROKE Brain/Head without Cont MR#: [id number] Acct: [id number] Name: CLARK LYLES Rep #: [id number] : 1935 M 88 From: Axel Marie MD PCP: CHRISTINE Brown Status: REG ER Study: STROKE Brain/Head without Cont Date of Exam: 0 09/07/24 Exam# [id number] Ordering Dr: Neo Tejeda DO EXAM: STROKE [...] the time of this dictation [facility]: Dr. Neo Tejeda DO; CHRISTINE Brown Technical Document Writer: Signed Normal [facility] Squamous epithelial cells de tection in urine sediment by light microscopyOrdered By: Neo Tejeda on 09-07-2024 Epithelial cells.squamous LM Ql (Urine sed) 0-5 SEEN /hpf 0-5 [facility] Total carbon dioxide measure mentOrdered By: Neo Tejeda on 09-07-2024 CO2 [Moles/Vol] 18 mmol/L [facility] Troponin IOrdered By: Jerrell Faith on 09-07-2024 Troponin I 68 pg/mL 3.0-78.0 [facility] Comment on above: Please Note: [place] t Units and Gender Specific Reference Ranges. For more information see Policy Stat Procedure [place] High Sensitivity Troponin (TNIH) and attachments. Urinalysis, Completeon 09-07 CA OX CRYSTAL 1+ /hpf Normal [facility] Comment on above: Order Comment: COLLE CTOR TO SPECIFY Performed By: #### L 100.0100, L500.2500 #### [facility] Laboratory [address] [place], [place], [address] BACTERIA RARE Normal None Seen [facility] Comment on above: Order Comment: COLLE CTOR TO SPECIFY Performed By: #### L 100.0100, L500.2500 #### [facility] Laboratory [address] [place], [address] CAST,HYALINE 0-5 SEEN Normal 0-5 [facility] Comment on above: Order Comment: COLLE CTOR TO SPECIFY Performed By: #### L 100.0100, L500.2500 #### [facility] Laboratory [address] [place], [address] EPI,SQUAMOUS 0-5 SEEN Normal 0-5 [facility] Comment on above: Order Comment: COLLE CTOR TO SPECIFY Performed By: #### L 100.0100, L500.2500 #### [facility] Laboratory [address] [place], [address] Mucus Ql (Urine sed) 1+ /hpf Normal [facility] Comment on above: Order Comment: COLLE CTOR TO SPECIFY Performed By: #### L 100.0100, L500.2500 #### [facility] Laboratory [address] [place], [address] RBC 0-5 SEEN Normal 0-5 [facility] Comment on above: Order Comment: [facility] CTOR TO SPECIFY Performed By: #### L 100.0100, L500.2500 #### [facility] Laboratory [address] [place], [address] WBC 0-5 SEEN Normal 0-5 [facility] Comment on above: Order Comment: [facility] CTOR TO SPECIFY Performed By: #### L 100.0100, L500.2500 #### [facility] [address] [place], [address] Urine clarityOrdered By: Ninoska Tejeda on 09-07-2024 Clarity (U) Clear Clear [facility] Urine color determinationOrd ered By: Neo Tejeda on 09-07-2024 Color (U) Yellow Yellow [facility] Urine glucose detectionOrder ed By: Neo Tejeda on 09-07-2024 Glucose Ql (U) Normal mg/dl Normal [facility] Urine leukocyte esterase det ection by dipstickOrdered By: Neo Tejeda on 09-07-2024 Leukocyte esterase Test strip Ql (U) Negative Negative [facility] Urine pHOrdered By: Neo espinalus on 09-07-2024 pH (U) 6.0 [pH] 5.0 - 8.0 [facility] Urine sediment bacteria coun t by microscopy (number/high power field)Ordered By: Neo Tejeda on 09-07-2024 Bacteria LM.HPF (Urine sed) [#/Area] RARE /hpf None Seen [facility] Urine specific gravity measu rementOrdered By: Neo Tejeda on 09-07-2024 Specific gravity (U) [Rel density] 1.010 1.002-1.03 0 [facility] Urine urobilinogen measureme ntOrdered By: Neo Tejeda on 09-07-2024 Urobilinogen Ql (U) Normal mg/dl Normal [facility] White blood cell countOrdere d By: Neo Tejeda on 09-07-2024 White blood cell count 0-5 SEEN /hpf 0-5 [facility] 03-27[facility]20[facility]ARK [facility] ([id number]) 1935 M Date Time Provider Department 03/27/24 8:00 AM [facility] During your visit today, we recorded the following information about you: Pulse Respiration Blood pressure Weight 63/minute 16/minute 126/67 68.9 kg Brigitte Segal APRN.STRATEGIC DEVELOPMENT MANAGER 03/27/2024 8:28 AM Addendum This is a [...] lipoma performed by Dr. Robe Mackenzie at [facility] 03-18-14: REVSC OPN/PRQ FEM/POP W/STNT/ANGIOP SM [...] METOPROLOL SUCCINATE (more content not included)... Normal [facility] 02-26-2024 JANETN Telephone ([facility]) CLARK LYLES ([id number]) 1935 M Date Time Provider Department 02/26/24 BRIGITTE SEGAL [facility] During your visit today, we [...] Date Reviewed: 02/25/2024 Reviewed by: Brigitte Segal APRN.STRATEGIC DEVELOPMENT MANAGER - Fully Assessed Prescriptions as of 02/26/2024 [...] Meds Comments as of 04/18/2021: Taking Saw [place]. Problem List As Of Date 02/26/2024 [...] chronic blood los*01/27/2020 Coronary artery disease involving algaaciq rabago*12/22/2020 S/P primary angioplasty with coronary stent [Z9*12/22/2020 Fall from standing [W19.XXXA] 09/20/2021 Encounter for support and coordination of trans*08/11/2023 Acute respiratory failure with hypoxia (HCC) [J*09/25/2023 Encounter Status:Closed by SHIRLEY RIVERA on 02/26/24 Normal [facility] Amylase SerPl-cCncon 024 Amylase [Catalytic activity/Vol] 52 U/L Normal 30-104 [facility] Comment on above: Order Comment: Speci men Type: BLOOD SPECIMENOrdering Facility: [facility] Address: [address] [place] [address] Performed By: #### 3 040-3, 1798-8, 67516-2 ####[facility] LABCLIA [id number] [place] [address] [place] CBC W Auto Differential pane l (Bld)on 02-25-2024 Basophils (Bld) [#/Vol] 0.04 10*3/uL Normal <0.11 [facility] Comment on above: Order Comment: Speci men Type: BLOOD SPECIMENOrdering Facility: [facility] Address: [address] [place] [address] Performed By: #### 5 7021-8 ####[facility] LABCLIA [id number] [place] [address] [place] Basophils/100 WBC (Bld) 0.4 % Normal [facility] Comment on above: Order Comment: Speci men Type: BLOOD SPECIMENOrdering Facility: [facility] Address: [address] [place] [address] Performed By: #### 5 7021-8 ####[facility] LABCLIA [id number] [place] [address] [place] Differential cell count method Nom (Bld) Auto Normal [facility] Comment on above: Order Comment: Speci men Type: BLOOD SPECIMENOrdering Facility: [facility] Address: [address] [place] [address] Performed By: #### 5 7021-8 ####[facility] LABCLIA [id number] [place] [address] [place] Eosinophils (Bld) [#/Vol] 0.31 10*3/uL Normal <0.46 [facility] Comment on above: Order Comment: Speci men Type: BLOOD SPECIMENOrdering Facility: [facility] Address: [address] [place] [address] Performed By: #### 5 7021-8 ####[facility] LABCLIA [id number] [place] [address] [place] Eosinophils/100 WBC (Bld) 2.9 % Normal [facility] Comment on above: Order Comment: Speci men Type: BLOOD SPECIMENOrdering Facility: [facility] Address: [address] [place] [address] Performed By: #### 5 7021-8 ####[facility] LABCLIA [id number] [place] [address] [place] Erythrocyte distribution width (RBC) [Ratio] 14.8 % Normal 11.5-15.0 [facility] Comment on above: Order Comment: Speci men Type: BLOOD SPECIMENOrdering Facility: [facility] Address: [address] [place] [address] Performed By: #### 5 7021-8 ####[facility] LABCLIA [id number] [place] [address] [place] Hematocrit (Bld) [Volume fraction] 50.9 % Normal 39.0-51.0 [facility] Comment on above: Order Comment: Speci men Type: BLOOD SPECIMENOrdering Facility: [facility] Address: [address] [place] [address] Performed By: #### 5 7021-8 ####[facility] LABCLIA [id number] [place] [address] [place] Hemoglobin (Bld) [Mass/Vol] 16.4 g/dL Normal 13.0-17.0 [facility] Comment on above: Order Comment: Speci men Type: BLOOD SPECIMENOrdering Facility: [facility] Address: [address] [place] [address] Performed By: #### 5 7021-8 ####[facility] LABCLIA [id number] [place] [address] [place] Immature granulocytes (Bld) [#/Vol] 0.08 10*3/uL Normal <0.10 [facility] Comment on above: Order Comment: Speci men Type: BLOOD SPECIMENOrdering Facility: [facility] Address: [address] [place] [address] Performed By: #### 5 7021-8 ####[facility] LABCLIA [id number] [place] [address] [place] Immature granulocytes/100 WBC (Bld) 0.7 % Normal [facility] Comment on above: Order Comment: Speci men Type: BLOOD SPECIMENOrdering Facility: [facility] Address: [address] [place] [address] Performed By: #### 5 7021-8 ####[facility] LABCLIA [id number] [place] [address] [place] Lymphocytes (Bld) [#/Vol] 0.73 10*3/uL Low 1.00-4.00 [facility] Comment on above: Order Comment: Speci men Type: BLOOD SPECIMENOrdering Facility: [facility] Address: [address] [place] [address] Performed By: #### 5 7021-8 ####[facility] LABCLIA [id number] [place] [address] [place] Lymphocytes/100 WBC (Bld) 6.7 % Normal [facility] Comment on above: Order Comment: Speci men Type: BLOOD SPECIMENOrdering Facility: [facility] Address: [address] [place] [address] Performed By: #### 5 7021-8 ####[facility] LABCLIA [id number] [address] [id number] [address] [place] MCH (RBC) [Entitic mass] 29.8 pg Normal 26.0-34.0 [facility] Comment on above: Order Comment: Speci men Type: BLOOD SPECIMENOrdering Facility: [facility] Address: [address] [place] [address] Performed By: #### 5 7021-8 ####[facility] LABCLIA [id number] [place] [address] [place] MCHC (RBC) [Mass/Vol] 32.2 g/dL Normal 30.5-36.0 [facility] Comment on above: Order Comment: Speci men Type: BLOOD SPECIMENOrdering Facility: [facility] Address: [address] [place] [address] Performed By: #### 5 7021-8 ####[facility] LABCLIA [id number] [place] [address] [place] MCV (RBC) [Entitic vol] 92.4 fL Normal 80.0-100.0 [facility] Comment on above: Order Comment: Speci men Type: BLOOD SPECIMENOrdering Facility: [facility] Address: [address] [place] [address] Performed By: #### 5 7021-8 ####[facility] LABCLIA [id number] [place] [address] [place] Monocytes (Bld) [#/Vol] 0.75 10*3/uL Normal <0.87 [facility] Comment on above: Order Comment: Speci men Type: BLOOD SPECIMENOrdering Facility: [facility] Address: [address] [place] [address] Performed By: #### 5 7021-8 ####[facility] LABCLIA [id number] [place] [address] [place] Monocytes/100 WBC (Bld) 6.9 % Normal [facility] Comment on above: Order Comment: Speci men Type: BLOOD SPECIMENOrdering Facility: [facility] Address: [address] [place] [address] Performed By: #### 5 7021-8 ####[facility] LABCLIA [id number] [place] [address] [place] Neutrophils (Bld) [#/Vol] 8.92 10*3/uL High 1.45-7.50 [facility] Comment on above: Order Comment: Speci men Type: BLOOD SPECIMENOrdering Facility: [facility] Address: [address] [place] [address] Performed By: #### 5 7021-8 ####[facility] LABCLIA [id number] [place] [address] [place] Neutrophils/100 WBC (Bld) 82.4 % Normal [facility] Comment on above: Order Comment: Speci men Type: BLOOD SPECIMENOrdering Facility: [facility] Address: [address] [place] [address] Performed By: #### 5 7021-8 ####[facility] LABCLIA [id number] [place] [address] [place] Nucleated RBC (Bld) [#/Vol] 10*3/uL Normal <0.01 [facility] Comment on above: Order Comment: Speci men Type: BLOOD SPECIMENOrdering Facility: [facility] Address: [address] [place] [address] Performed By: #### 5 7021-8 ####[facility] LABCLIA [id number] [place] [address] [place] Nucleated RBC/100 WBC (Bld) [Ratio] 0.0 /100 WBC Normal [facility] Comment on above: Order Comment: Speci men Type: BLOOD SPECIMENOrdering Facility: [facility] Address: [address] [place] [address] Performed By: #### 5 7021-8 ####[facility] LABCLIA [id number] [place] [address] [place] Platelet mean volume (Bld) [Entitic vol] 11.8 fL Normal 9.0-12.7 [facility] Comment on above: Order Comment: Speci men Type: BLOOD SPECIMENOrdering Facility: [facility] Address: [address] [place] [address] Performed By: #### 5 7021-8 ####[facility] LABIA [id number] [place] [address] [place] Platelets (Bld) [#/Vol] 234 10*3/uL Normal 150-400 [facility] Comment on above: Order Comment: Speci men Type: BLOOD SPECIMENOrdering Facility: [facility] Address: [address] [place] [address] Performed By: #### 5 7021-8 ####[facility] LABCLIA [id number] [place] [address] [place] RBC (Bld) [#/Vol] 5.51 10*6/uL Normal 4.20-6.00 [facility] Comment on above: Order Comment: Speci men Type: BLOOD SPECIMENOrdering Facility: [facility] Address: [address] [place] [address] Performed By: #### 5 7021-8 ####[facility] LABIA [id number] [place] [address] [place] WBC (Bld) [#/Vol] 10.83 10*3/uL Normal 3.70-11.00 [facility] Comment on above: Order Comment: Speci men Type: BLOOD SPECIMENOrdering Facility: [facility] Address: [address] [place] [address] Performed By: #### 5 7021-8 ####[facility] LABCLIA [id number] [place] [address] [place] CNOVon 02-25-2024 CNOV Office Visit ([facility] ) CLARK LYLSE ([id number]) 1935 M Date Time Provider Department 02/25/24 8:20 AM [facility] During [facility] visit today, we recorded the following information about you: Pulse Respiration Blood pressure Weight 60/minute 16/minute 148/70 68.9 kg Brigitte Segal, [facility] 02/25/2024 8:51 AM Signed This is [...] lipoma performed by Dr. Robe Mackenzie at [facility] REVSC OPN/PRQ FEM/POP W/STNT/ANGIOP SM VSL [...] included)... Normal [facility] Comprehensive metabolic 2000 panelon 02-25-2024 Albumin [Mass/Vol] 4.4 g/dL Normal 3.9-4.[address] [facility] Comment on above: Order Comment: Speci men Type: BLOOD SPECIMENOrdering Facility: [facility] Address: [address] [place] [address] Performed By: #### 3 040-3, 1798-02, ####[facility] LABIA [id number] [place] [address] [place] ALP [Catalytic activity/Vol] 57 U/L Normal 38-113 [facility] Comment on above: Order Comment: Speci men Type: BLOOD SPECIMENOrdering Facility: [facility] Address: [address] [place] [address] Performed By: #### 3 040-3, 1798-02, ####[facility] LABCLIA [id number] [place] [address] [place] ALT [Catalytic activity/Vol] 24 U/L Normal 10-54 [facility] Comment on above: Order Comment: Speci men Type: BLOOD SPECIMENOrdering Facility: [facility] Address: [address] [place], [place] [address] Performed By: #### 3 040-3, 1798-02, ####[facility] LABCLIA [id number] [address] [address] [place] Anion gap [Moles/Vol] 12 mmol/L Normal 8-15 [facility] Comment on above: Order Comment: Speci men Type: BLOOD SPECIMENOrdering Facility: [facility] Address: [address] [place], [place] [address] Performed By: #### 3 040-3, 1798-02, ####[facility] LABCLIA [id number] [place] [id number] [place] AST [Catalytic activity/Vol] 28 U/L Normal 14-40 [facility] Comment on above: Order Comment: Speci men Type: BLOOD SPECIMENOrdering Facility: [facility] Address: [address] [place] [address] Performed By: #### 3 040-3, 1798-02, ####[facility] LABCLIA [id number] [place] [id number] [place] Bilirubin [Mass/Vol] 1.1 mg/dL Normal 0.2-1.3 [facility] Comment on above: Order Comment: Speci men Type: BLOOD SPECIMENOrdering Facility: [facility] Address: [address] [place], [place] [address] Performed By: #### 3 040-3, 1798-02, ####[facility] LABCLIA [id number] [address] [address] [place] Calcium [Mass/Vol] 9.7 mg/dL Normal 8.5-10.[address] [facility] Comment on above: Order Comment: Speci men Type: BLOOD SPECIMENOrdering Facility: [facility] Address: [address] [place], [place] [address] Performed By: #### 3 040-3, 1798-02, 19581-4 ####[facility] LABCLIA [id number] [place] [id number] [place] Chloride [Moles/Vol] 103 mmol/L Normal 98-107 [facility] Comment on above: Order Comment: Speci men Type: BLOOD SPECIMENOrdering Facility: [facility] Address: [address] [place] [address] Performed By: #### 3 040-3, 1798-02, ####[facility] LABIA [id number] [place] [address] [place] CO2 [Moles/Vol] 24 mmol/L Normal 22-30 [facility] Comment on above: Order Comment: Speci men Type: BLOOD SPECIMENOrdering Facility: [facility] Address: [address] [place] [address] Performed By: #### 3 040-3, 1798-02, 18983-3 ####[facility] LABIA [id number] [place] [address] [place] Creatinine [Mass/Vol] 0.90 mg/dL Normal 0.73-1.22 [facility] Comment on above: Order Comment: Speci men Type: BLOOD SPECIMENOrdering Facility: [facility] Address: [address] [place] [address] Performed By: #### 3 040-3, 1798-02, ####[facility] LABIA [id number] [place] [address] [place] Creatinine and Glomerular filtration rate.predicted panel (S/P/Bld) 83 mL/min/1.73m??? Normal >=60 [facility] Comment on above: Order Comment: Speci men Type: BLOOD SPECIMENOrdering Facility: [facility] Address: [address] [place] [address] Result Comment: Louann mated Glomerular Filtration Rate [...] GFR. Performed By: #### 3 040-3, 8, ####[facility] LABCLIA [id number] [place] [id number] [place] Glucose [Mass/Vol] 89 mg/dL Normal 74-[address] [facility] Comment on above: Order Comment: [place] men Type: BLOOD SPECIMENOrdering Facility: [facility] Address: [address] [place] [address] Result Comment: The [place] [employer] (ADA) provides guidance for cutoff [...] Standards of Medical Care in Diabetes 2016, [place] [employer]. Diabetes Care. 2016.39(Suppl 1). Performed By: #### 3 040-3, 1798-02, ####[facility] LABCLIA [id number] [place] [id number] [place] Potassium [Moles/Vol] 4.4 mmol/L Normal 3.7-5.1 [facility] Comment on above: Order Comment: Kailey simons Type: BLOOD SPECIMENOrdering Facility: [facility] Address: [address] [place] [address] Performed By: #### 3 040-3, 8, ####[facility] LABCLIA [id number] [place] [address] [place] Protein [Mass/Vol] 6.1 g/dL Low 6.3-8.[address] [facility] Comment on above: Order Comment: Speci men Type: BLOOD SPECIMENOrdering Facility: [facility] Address: [address] [place] [address] Performed By: #### 3 040-3, 8, 58547-0 ####[facility] LABCLIA [id number] [place] [address] [place] Sodium [Moles/Vol] 139 mmol/L Normal 136-[address] [facility] Comment on above: Order Comment: Speci men Type: BLOOD SPECIMENOrdering Facility: [facility] Address: [address] [place] [address] Performed By: #### 3 040-3, 1798-02, 35665-8 ####[facility] LABIA [id number] [place] [address] [place] Urea nitrogen [Mass/Vol] 15 mg/dL Normal 9-24 [facility] Comment on above: Order Comment: Speci men Type: BLOOD SPECIMENOrdering Facility: [facility] Address: [address] [place] [address] Performed By: #### 3 040-3, 1798-02, 00765-2 ####[facility] LABCLIA [id number] [place] [id number] [place] H. pylori IgG IA Qlon 2023 H. PYLORI IGG, QUAL Negative Normal Negative [facility] Comment on above: Order Comment: Speci men Type: BLOOD SPECIMENOrdering Facility: [facility] Address: [address] [place] [address] Result Comment: To ot exclude H. pylori infection if the specimen collected 3-4 weeks after onset of symptoms. Performed By: #### 1 7859-0 ####[facility] LABCLIA [id number] [place] [id number] [place] Lipase SerPl-cCncon 02-25-20 24 Lipase [Catalytic activity/Vol] 41 U/L Normal 16-61 [facility] Comment on above: Order Comment: Speci men Type: BLOOD SPECIMENOrdering Facility: [facility] Address: [address] [place] [address] Performed By: #### 3 040-3, 1798-8, 57304-1 ####[facility] [id number] [place] [address] [place] Cardiology Visit Reporton Cardiology Visit Report [facility] [place] [address] [place] [address] OFFICE VISIT Date of Service: 02/19/24 MR#: [id number] Acct: [id number] Name: CLARK LYLES Rep #: [id number] [...] air Intake Visit Reasons: O/D for FU Import/Export Analyst Required: No Accompanied by: Daughter Is patient [...] bleed (12/2019) Atherosclerosis of coronary artery of algaaciq 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 Normal [facility] 12 Lead EKGon 02-09-2024 12 Lead EKG [facility] Cardiovascular Services [address] [place] [address] 12 Lead EKG 02/09/24 0952 MR#: [id number] Acct: [id number] Name: CLARK LYLES Rep #: [id number] : 1935 88 From: Farrah Ruvalcaba MD [...] Normal ECG Confirmed by RITA MANUEL, YUAN ([id number]), research editor FARSHAD PANDYA ([id number]) on 02/13/2024 9:44:33 AM Referred By: AR Confirmed By:ABEL RUVALCABA MD 02/13/24943 Date Farrah Ruvalcaba MD CC: Dr. Tamra Ivey MD; CHRISTINE Brown Signed Normal [facility] BNP,B-Type NATRIURETIC PEPTI Giovanni 02-09-2024 Natriuretic peptide B (Bld) [Mass/Vol] 180.0 pg/mL High 0-100 [facility] Comment on above: Performed By: #### L 100.0100, L300.8000, L503.6620, L500.2500, L501.4020 ####[facility] [address] [place], [place], [id number] Basic Metabolic Profile (BMP )on 02-09-2024 BUN/CRE 13.1 RATIO Normal 10-20 [facility] Comment on above: Order Comment: 'TROP ' Serial specimen #1, #2 or #3: 1 Performed By: #### L 100.0100, L300.8000, L503.6620, L500.2500, L501.4020 ####[facility] [address] [place], [address] CA,Total 9.0 mg/dL Normal 8.5-10.1 [facility] Comment on above: Order Comment: 'TROP ' Serial specimen #1, #2 or #3: 1 Performed By: #### L 100.0100, L300.8000, L503.6620, L500.2500, L501.4020 ####[facility] [address] [place], [address] Chloride [Moles/Vol] 105 mmol/L Normal 98-107 [facility] Comment on above: Order Comment: 'TROP ' Serial specimen #1, #2 or #3: 1 Performed By: #### L 100.0100, L300.8000, L503.6620, L500.2500, L501.4020 ####[facility] [address] [place], [address] CO2 [Moles/Vol] 24.0 mmol/L Normal 21.0-32.0 [facility] Comment on above: Order Comment: 'TROP ' Serial specimen #1, #2 or #3: 1 Performed By: #### L 100.0100, L300.8000, L503.6620, L500.2500, L501.4020 ####[facility] [address] [place], [address] Creatinine [Mass/Vol] 0.92 mg/dL Normal 0.70-1.30 [facility] Comment on above: Order Comment: 'TROP ' Serial specimen #1, #2 or #3: 1 Result Comment: The validity of the calculated GFR GFRAA in patients over 70 years has not been determined. Clinical correlation is essential. Performed By: #### L 100.0100, L300.8000, L503.6620, L500.2500, L501.4020 ####[facility] [address] [place], [address] ECRCL 58.61 ml/min Normal [facility] Comment on above: Order Comment: 'TROP ' Serial specimen #1, #2 or #3: 1 Performed By: #### L 100.0100, L300.8000, L503.6620, L500.2500, L501.4020 ####[facility] [address] [place], [address] EST GFR - AA 100 mL/min Normal >60 [facility] Comment on above: Order Comment: 'TROP ' Serial specimen #1, #2 or #3: 1 Result Comment: Afri can Israeli GFR Calc Performed By: #### L 100.0100, L300.8000, L503.6620, L500.2500, L501.4020 ####[facility] [address] [place], [address] GAP 7 Normal 5-15 [facility] Comment on above: Order Comment: 'TROP ' Serial specimen #1, #2 or #3: 1 Performed By: #### L 100.0100, L300.8000, L503.6620, L500.2500, L501.4020 ####[facility] [address] [place], [address] GFR/1.73 sq M.predicted among non-blacks MDRD (S/P/Bld) [Vol rate/Area] 83 mL/min/{1.73_m2} Normal >60 [facility] Comment on above: Order Comment: 'TROP ' Serial specimen #1, #2 or #3: 1 Result Comment: Non- GFR Calc Performed By: #### L 100.0100, L300.8000, L503.6620, L500.2500, L501.4020 ####[facility] [address] [place], [address] Glucose [Mass/Vol] 115 mg/dL High 74-106 [facility] Comment on above: Order Comment: 'TROP ' Serial specimen #1, #2 or #3: 1 Result Comment: Fast ing Glucose result from 100 to 125 mg/dL suggests IMPAIRED HOMEOSTASIS per A.D.A. criteria. Performed By: #### L 100.0100, L300.8000, L503.6620, L500.2500, L501.4020 ####[facility] [address] [place], [address] Potassium [Moles/Vol] 3.6 mmol/L Normal 3.5-5.1 [facility] Comment on above: Order Comment: 'TROP ' Serial specimen #1, #2 or #3: 1 Performed By: #### L 100.0100, L300.8000, L503.6620, L500.2500, L501.4020 ####[facility] [address] [place], [address] Sodium [Moles/Vol] 136 mmol/L Normal 136-145 [facility] Comment on above: Order Comment: 'TROP ' Serial specimen #1, #2 or #3: 1 Performed By: #### L 100.0100, L300.8000, L503.6620, L500.2500, L501.4020 ####[facility] [address] [place], [address] Urea nitrogen [Mass/Vol] 12 mg/dL Normal 7-18 [facility] Comment on above: Order Comment: 'TROP ' Serial specimen #1, #2 or #3: 1 Performed By: #### L 100.0100, L300.8000, L503.6620, L500.2500, L501.4020 ####[facility] [address] [place], [address] CBC W/Diff, Automatedon 07- Absolute Lymph 0.49 X10 3/uL Low 0.83-4.51 [facility] Comment on above: Performed By: #### L 100.0100, L300.8000, L503.6620, L500.2500, L501.4020 ####[facility] [address] [place], [address] Absolute Neut 7.0 X10 3/uL Normal 2.0-7.7 [facility] Comment on above: Performed By: #### L 100.0100, L300.8000, L503.6620, L500.2500, L501.4020 ####[facility] [address] [place], [address] Basophils/100 WBC (Bld) 0.2 % Normal 0-1 [facility] Comment on above: Performed By: #### L 100.0100, L300.8000, L503.6620, L500.2500, L501.4020 ####[facility] [address] [place], [address] Eosinophils/100 WBC (Bld) 1.4 % Normal 0-5 [facility] Comment on above: Performed By: #### L 100.0100, L300.8000, L503.6620, L500.2500, L501.4020 ####[facility] [address] [place], [address] Erythrocyte distribution width (RBC) [Ratio] 15.9 % High 11.6-14.6 [facility] Comment on above: Performed By: #### L 100.0100, L300.8000, L503.6620, L500.2500, L501.4020 ####[facility] [address] [place], [address] Hematocrit (Bld) [Volume fraction] 46.2 % Normal 40-54 [facility] Comment on above: Performed By: #### L 100.0100, L300.8000, L503.6620, L500.2500, L501.4020 ####[facility] [address] [place], [address] Hemoglobin (Bld) [Mass/Vol] 15.6 g/dL Normal 13.0-16.5 [facility] Comment on above: Performed By: #### L 100.0100, L300.8000, L503.6620, L500.2500, L501.4020 ####[facility] [address] [place], [address] IG% 1.000 High 0.0-0.9 [facility] Comment on above: Result Comment: IG% - Immature Granulocytes (promyelocytes, myelocytes and metamyelocytes) > 1% indicates that a LEFT SHIFT is Present. Performed By: #### L 100.0100, L300.8000, L503.6620, L500.2500, L501.4020 ####[facility] [address] [place], [address] Lymphocytes/100 WBC (Bld) 5.8 % Low 19-41 [facility] Comment on above: Performed By: #### L 100.0100, L300.8000, L503.6620, L500.2500, L501.4020 ####[facility] [address] [place], [address] MCH (RBC) [Entitic mass] 30.8 pg Normal 27.0-32.0 [facility] Comment on above: Performed By: #### L 100.0100, L300.8000, L503.6620, L500.2500, L501.4020 ####[facility] [address] [place], [address] MCHC (RBC) [Mass/Vol] 33.8 g/dL Normal 32-36 [facility] Comment on above: Performed By: #### L 100.0100, L300.8000, L503.6620, L500.2500, L501.4020 ####[facility] [address] [place], [address] MCV (RBC) [Entitic vol] 91.1 fL Normal 80-94 [facility] Comment on above: Performed By: #### L 100.0100, L300.8000, L503.6620, L500.2500, L501.4020 ####[facility] [address] [place], [address] Monocytes/100 WBC (Bld) 8.1 % Normal 0-10 [facility] Comment on above: Performed By: #### L 100.0100, L300.8000, L503.6620, L500.2500, L501.4020 ####[facility] [address] [place], [address] Neutrophils/100 WBC (Bld) 83.5 % High 47-70 [facility] Comment on above: Performed By: #### L 100.0100, L300.8000, L503.6620, L500.2500, L501.4020 ####[facility] [address] [place], [address] Nucleated RBC (Bld) [#/Vol] 0 10*3/uL Normal 0-5 [facility] Comment on above: Performed By: #### L 100.0100, L300.8000, L503.6620, L500.2500, L501.4020 ####[facility] [address] [place], [address] Platelet mean volume (Bld) [Entitic vol] 10.8 fL Normal 6.2-12.0 [facility] Comment on above: Performed By: #### L 100.0100, L300.8000, L503.6620, L500.2500, L501.4020 ####[facility] [address] [place], [address] Platelets (Bld) [#/Vol] 264 10*3/uL Normal 150-450 [facility] Comment on above: Performed By: #### L 100.0100, L300.8000, L503.6620, L500.2500, L501.4020 ####[facility] [address] [place], [address] RBC (Bld) [#/Vol] 5.07 10*6/uL Normal 4.6-6.2 [facility] Comment on above: Performed By: #### L 100.0100, L300.8000, L503.6620, L500.2500, L501.4020 ####[facility] [address] [place], [address] RDW SD 53.1 fl High 35.1-43.9 [facility] Comment on above: Performed By: #### L 100.0100, L300.8000, L503.6620, L500.2500, L501.4020 ####[facility] [address] [place], [address] WBC (Bld) [#/Vol] 8.4 10*3/uL Normal 4.4-11.0 [facility] Comment on above: Performed By: #### L 100.0100, L300.8000, L503.6620, L500.2500, L501.4020 ####[facility] [address] [place], [address] Chest PA and Lateralon 02-08 Chest PA and Lateral [facility] Imaging Services [address] [place] [address] Chest PA and Lateral MR#: [id number] Acct: [id number] Name: CLARK LYLES Rep #: [id number] : 1935 M 88 From: Yana [place] MD PCP: CHRISTINE Brown Status: REG ER Study: Chest PA and Lateral Date of Exam: 02/09/24 Exam# [id number] Ordering Dr: Tamra Ivey MD [id number] INDICATION: Shortness of breath EXAMINATION/TECHNIQUE: X-RAY - [...] CC: Dr. Tamra Ivey MD; CHRISTINE Brown Technical Document Writer: Signed Normal [facility] D-Dimer Quantitative (DVT/PE )on 02-09-2024 D-DIMER QUANT 0.34 FEU/ug/m Normal 0.27-0.49 [facility] Comment on above: Result Comment: NORM AL D-Dimer level (<0.50) indicates no DVT or PE. Performed By: #### L 100.0100, L300.8000, L503.6620, L500.2500, L501.4020 ####[facility] [address] [facility] [place], [address] Emergency Department Summary on 02-09-2024 Emergency Department Summary [facility] Medical Records Department [address] [place] [address] Emergency Department Summary 02/09/24 MR#: [id number] Acct: [id number] Name: CLARK LYLES Rep #: [id number] : 1935 88 From: Tamra Ivey MD [...] CHF. He has not noted peripheral swelling. [facility] Medical History COVID-19 virus detected (08/23/20) Anxiety and depression Chronic anemia Acute respiratory failure with hypoxia Hypoxia Pneumonia due to COVID-19 virus GI bleed (12/2019) Atherosclerosis of coronary artery of algaaciq heart without angina pectoris Peripheral vascular occlusive [...] Neurologic Neurologi (more content not included)... Normal [facility] L501.4020on 02-09-2024 TROPONIN-I HS 7 pg/mL Normal 3.0-78.0 [facility] Comment on above: Order Comment: 'TROP ' Serial specimen #1, #2 or #3: 1 Result Comment: Peg jiménez Note: New Test Units and Gender Specific Reference Ranges. For more information see Policy Stat Procedure [place] High Sensitivity Troponin (TNIH) and attachments. Performed By: #### L 100.0100, L300.8000, L503.6620, L500.2500, L501.4020 ####[facility] [address] [place], [address] [facility] 12-28-2023 [facility] Telephone ([facility]) CLARK LYLES ([id number]) 1935 M Date Time Provider Department 12/28/23 WALTER GOMEZ [facility] During your visit today, we [...] Meds Comments as of 04/18/2021: Taking Saw [place]. Problem List As Of Date 12/28/2023 Noted [...] chronic blood los*01/27/2020 Coronary artery disease involving algaaciq rabago*12/22/2020 S/P primary angioplasty with coronary stent [Z9*12/22/2020 Fall from standing [W19.XXXA] 09/20/2021 Encounter for support and coordination of trans*08/11/2023 Acute respiratory failure with hypoxia (HCC) [J*09/25/2023 Letter Text Encounter Status:Closed by SHIRLEY RIVERA on 01/04/24 Normal [facility] CBC W Auto Differential pane l (Bld)on 12-27-2023 Basophils (Bld) [#/Vol] 0.04 10*3/uL Normal <0.11 [facility] Comment on above: Order Comment: Speci men Type: BLOOD SPECIMENOrdering Facility: [facility] Address: [address] [place] [address] Performed By: #### 5 7021-8 ####[facility] LABCLIA [id number] [place] [address] [place] Basophils/100 WBC (Bld) 0.5 % Normal [facility] Comment on above: Order Comment: Speci men Type: BLOOD SPECIMENOrdering Facility: [facility] Address: [address] [place] [address] Performed By: #### 5 7021-8 ####[facility] LABCLIA [id number] [place] [address] [place] Differential cell count method Nom (Bld) Auto Normal [facility] Comment on above: Order Comment: Speci men Type: BLOOD SPECIMENOrdering Facility: [facility] Address: [address] [place] [address] Performed By: #### 5 7021-8 ####[facility] LABCLIA [id number] [place] [address] [place] Eosinophils (Bld) [#/Vol] 0.36 10*3/uL Normal <0.46 [facility] Comment on above: Order Comment: Speci men Type: BLOOD SPECIMENOrdering Facility: [facility] Address: [address] [place] [address] Performed By: #### 5 7021-8 ####[facility] LABCLIA [id number] [place] [address] [place] Eosinophils/100 WBC (Bld) 4.5 % Normal [facility] Comment on above: Order Comment: Speci men Type: BLOOD SPECIMENOrdering Facility: [facility] Address: [address] [place] [address] Performed By: #### 5 7021-8 ####[facility] LABCLIA [id number] [place] [address] [place] Erythrocyte distribution width (RBC) [Ratio] 16.4 % High 11.5-15.0 [facility] Comment on above: Order Comment: Speci men Type: BLOOD SPECIMENOrdering Facility: [facility] Address: [address] [place] [address] Performed By: #### 5 7021-8 ####[facility] LABCLIA [id number] [place] [address] [place] Hematocrit (Bld) [Volume fraction] 47.6 % Normal 39.0-51.0 [facility] Comment on above: Order Comment: Speci men Type: BLOOD SPECIMENOrdering Facility: [facility] Address: [address] [place] [address] Performed By: #### 5 7021-8 ####[facility] LABCLIA [id number] [place] [address] [place] Hemoglobin (Bld) [Mass/Vol] 15.7 g/dL Normal 13.0-17.0 [facility] Comment on above: Order Comment: Speci men Type: BLOOD SPECIMENOrdering Facility: [facility] Address: [address] [place] [address] Performed By: #### 5 7021-8 ####[facility] LABCLIA [id number] [place] [address] [place] Immature granulocytes (Bld) [#/Vol] 0.07 10*3/uL Normal <0.10 [facility] Comment on above: Order Comment: Speci men Type: BLOOD SPECIMENOrdering Facility: [facility] Address: [address] [place] [address] Performed By: #### 5 7021-8 ####[facility] LABCLIA [id number] [place] [address] [place] Immature granulocytes/100 WBC (Bld) 0.9 % Normal [facility] Comment on above: Order Comment: Speci men Type: BLOOD SPECIMENOrdering Facility: [facility] Address: [address] [place] [address] Performed By: #### 5 7021-8 ####[facility] LABCLIA [id number] [place] [address] [place] Lymphocytes (Bld) [#/Vol] 0.72 10*3/uL Low 1.00-4.00 [facility] Comment on above: Order Comment: Speci men Type: BLOOD SPECIMENOrdering Facility: [facility] Address: [address] [place] [address] Performed By: #### 5 7021-8 ####[facility] LABIA [id number] [place] [address] [place] Lymphocytes/100 WBC (Bld) 8.9 % Normal [facility] Comment on above: Order Comment: Speci men Type: BLOOD SPECIMENOrdering Facility: [facility] Address: [address] [place] [address] Performed By: #### 5 7021-8 ####[facility] LABCLIA [id number] [place] [address] [place] MCH (RBC) [Entitic mass] 30.5 pg Normal 26.0-34.0 [facility] Comment on above: Order Comment: Speci men Type: BLOOD SPECIMENOrdering Facility: [facility] Address: [address] [place] [address] Performed By: #### 5 7021-8 ####[facility] LABCLIA [id number] [place] [address] [place] MCHC (RBC) [Mass/Vol] 33.0 g/dL Normal 30.5-36.0 [facility] Comment on above: Order Comment: Speci men Type: BLOOD SPECIMENOrdering Facility: [facility] Address: [address] [place] [address] Performed By: #### 5 7021-8 ####[facility] LABCLIA [id number] [place] [address] [place] MCV (RBC) [Entitic vol] 92.6 fL Normal 80.0-100.0 [facility] Comment on above: Order Comment: Speci men Type: BLOOD SPECIMENOrdering Facility: [facility] Address: [address] [place] [address] Performed By: #### 5 7021-8 ####[facility] LABCLIA [id number] [place] [address] [place] Monocytes (Bld) [#/Vol] 0.84 10*3/uL Normal <0.87 [facility] Comment on above: Order Comment: Speci men Type: BLOOD SPECIMENOrdering Facility: [facility] Address: [address] [place] [address] Performed By: #### 5 7021-8 ####[facility] LABIA [id number] [place] [address] [place] Monocytes/100 WBC (Bld) 10.4 % Normal [facility] Comment on above: Order Comment: Speci men Type: BLOOD SPECIMENOrdering Facility: [facility] Address: [address] [place] [address] Performed By: #### 5 7021-8 ####[facility] LABCLIA [id number] [place] [address] [place] Neutrophils (Bld) [#/Vol] 6.02 10*3/uL Normal 1.45-7.50 [facility] Comment on above: Order Comment: Speci men Type: BLOOD SPECIMENOrdering Facility: [facility] Address: [address] [place] [address] Performed By: #### 5 7021-8 ####[facility] LABCLIA [id number] [place] [address] [place] Neutrophils/100 WBC (Bld) 74.8 % Normal [facility] Comment on above: Order Comment: Speci men Type: BLOOD SPECIMENOrdering Facility: [facility] Address: [address] [place] [address] Performed By: #### 5 7021-8 ####[facility] LABIA [id number] [place] [address] [place] Nucleated RBC (Bld) [#/Vol] 10*3/uL Normal <0.01 [facility] Comment on above: Order Comment: Speci men Type: BLOOD SPECIMENOrdering Facility: [facility] Address: [address] [place] [address] Performed By: #### 5 7021-8 ####[facility] LABIA [id number] [place] [address] [place] Nucleated RBC/100 WBC (Bld) [Ratio] 0.0 /100 WBC Normal [facility] Comment on above: Order Comment: Speci men Type: BLOOD SPECIMENOrdering Facility: [facility] Address: [address] [place] [address] Performed By: #### 5 7021-8 ####[facility] LABCLIA [id number] [place] [address] [place] Platelet mean volume (Bld) [Entitic vol] 11.6 fL Normal 9.0-12.7 [facility] Comment on above: Order Comment: Speci men Type: BLOOD SPECIMENOrdering Facility: [facility] Address: [address] [place] [address] Performed By: #### 5 7021-8 ####[facility] LABCLIA [id number] [place] [address] [place] Platelets (Bld) [#/Vol] 209 10*3/uL Normal 150-400 [facility] Comment on above: Order Comment: Speci men Type: BLOOD SPECIMENOrdering Facility: [facility] Address: [address] [place] [address] Performed By: #### 5 7021-8 ####[facility] LABCLIA [id number] [place] [address] [place] RBC (Bld) [#/Vol] 5.14 10*6/uL Normal 4.20-6.00 [facility] Comment on above: Order Comment: Speci men Type: BLOOD SPECIMENOrdering Facility: [facility] Address: [address] [place] [address] Performed By: #### 5 7021-8 ####[facility] LABCLIA [id number] [place] [address] [place] WBC (Bld) [#/Vol] 8.05 10*3/uL Normal 3.70-11.00 [facility] Comment on above: Order Comment: Speci men Type: BLOOD SPECIMENOrdering Facility: [facility] Address: [address] [place] [address] Performed By: #### 5 7021-8 ####[facility] LABCLIA [id number] [place] [address] [place] Comprehensive metabolic 2000 panelon 12-27-2023 Albumin [Mass/Vol] 4.3 g/dL Normal 3.9-4.[address] [facility] Comment on above: Order Comment: Speci men Type: BLOOD SPECIMENOrdering Facility: [facility] Address: [address] [place] [address] Performed By: #### 2 4323-8, 37035-6, 20482-9 ####[facility] LABCLIA [id number] [place] [address] [place] ALP [Catalytic activity/Vol] 57 U/L Normal 38-113 [facility] Comment on above: Order Comment: Speci men Type: BLOOD SPECIMENOrdering Facility: [facility] Address: [address] [place] [address] Performed By: #### 2 4323-8, 61461-1, ####[facility] LABCLIA [id number] [place] [address] [place] ALT [Catalytic activity/Vol] 15 U/L Normal 10-54 [facility] Comment on above: Order Comment: Speci men Type: BLOOD SPECIMENOrdering Facility: [facility] Address: [address] [place] [address] Performed By: #### 2 4323-8, , ####[facility] LABCLIA [id number] [place] [address] [place] Anion gap [Moles/Vol] 13 mmol/L Normal 9-18 [facility] Comment on above: Order Comment: Speci men Type: BLOOD SPECIMENOrdering Facility: [facility] Address: [address] [place] [address] Performed By: #### 2 4323-8, , ####[facility] LABCLIA [id number] [place] [address] [place] AST [Catalytic activity/Vol] 19 U/L Normal 14-40 [facility] Comment on above: Order Comment: Speci men Type: BLOOD SPECIMENOrdering Facility: [facility] Address: [address] [place] [address] Performed By: #### 2 4323-8, , ####[facility] LABCLIA [id number] [place] [id number] [place] Bilirubin [Mass/Vol] 1.3 mg/dL Normal 0.2-1.3 [facility] Comment on above: Order Comment: Speci men Type: BLOOD SPECIMENOrdering Facility: [facility] Address: [address] [place] [address] Performed By: #### 2 4323-8, , ####[facility] LABCLIA [id number] [address] [address] [place] Calcium [Mass/Vol] 9.0 mg/dL Normal 8.5-10.[address] [facility] Comment on above: Order Comment: Speci men Type: BLOOD SPECIMENOrdering Facility: [facility] Address: [address] [place], [place] [address] Performed By: #### 2 4323-8, , ####[facility] LABCLIA [id number] [place] [id number] [place] Chloride [Moles/Vol] 106 mmol/L High 97-105 [facility] Comment on above: Order Comment: Speci men Type: BLOOD SPECIMENOrdering Facility: [facility] Address: [address] [place] [address] Performed By: #### 2 4323-8, , ####[facility] LABCLIA [id number] [place] [id number] [place] CO2 [Moles/Vol] 23 mmol/L Normal 22-30 [facility] Comment on above: Order Comment: Speci men Type: BLOOD SPECIMENOrdering Facility: [facility] Address: [address] [place] [address] Performed By: #### 2 4323-8, , ####[facility] LABCLIA [id number] [address] [address] [place] Creatinine [Mass/Vol] 1.00 mg/dL Normal 0.73-1.22 [facility] Comment on above: Order Comment: Speci men Type: BLOOD SPECIMENOrdering Facility: [facility] Address: [address] [place] [id number] Performed By: #### 2 4323-8, 08283-0, 83078-1 ####[facility] LABCLIA [id number] [place] [id number] [place] Creatinine and Glomerular filtration rate.predicted panel (S/P/Bld) 73 mL/min/1.73m??? Normal >=60 [facility] Comment on above: Order Comment: Kailey simons Type: BLOOD SPECIMENOrdering Facility: [facility] Address: [address] [place] [address] Result Comment: Louann mated Glomerular Filtration Rate [...] actual GFR. Performed By: #### 2 4323-8, 03254-3, 54194-9 ####[facility] LABCLIA [id number] [place] [id number] [place] Glucose [Mass/Vol] 93 mg/dL Normal 74-[address] [facility] Comment on above: Order Comment: Kailey simons Type: BLOOD SPECIMENOrdering Facility: [facility] Address: [address] [place] [address] Result Comment: The [place] Diabetes Association (ADA) provides guidance for cutoff [...] Standards of Medical Care in Diabetes 2016, [place] Diabetes Association. Diabetes Care. 2016.39(Suppl 1). Performed By: #### 2 4323-8, 94196-1, 52690-4 ####[facility] LABCLIA [id number] [address] [address] [place] Potassium [Moles/Vol] 4.0 mmol/L Normal 3.7-5.1 [facility] Comment on above: Order Comment: Speci men Type: BLOOD SPECIMENOrdering Facility: [facility] Address: [address] [place] [address] Performed By: #### 2 4323-8, , 49585-6 ####[facility] LABCLIA [id number] [place] [address] [place] Protein [Mass/Vol] 6.0 g/dL Low 6.3-8.[address] [facility] Comment on above: Order Comment: Speci men Type: BLOOD SPECIMENOrdering Facility: [facility] Address: [address] [place] [address] Performed By: #### 2 4323-8, , 23177-2 ####[facility] LABIA [id number] [place] [address] [place] Sodium [Moles/Vol] 142 mmol/L Normal 136-[address] [facility] Comment on above: Order Comment: Speci men Type: BLOOD SPECIMENOrdering Facility: [facility] Address: [address] [place] [address] Performed By: #### 2 4323-8, , 44141-0 ####[facility] LABCLIA [id number] [address] [address] [place] Urea nitrogen [Mass/Vol] 15 mg/dL Normal 9-24 [facility] Comment on above: Order Comment: Speci men Type: BLOOD SPECIMENOrdering Facility: [facility] Address: [address] [place] [address] Performed By: #### 2 4323-8, , ####[facility] LABCLIA [id number] [place] [address] [place] Lipid 1996 panelon 4 Cholesterol [Mass/Vol] 131 mg/dL Normal <200 [facility] Comment on above: Order Comment: Speci men Type: BLOOD SPECIMENOrdering Facility: [facility] Address: [facility] [place] [address] Result Comment: <200 mg/dL, Desirable 200-239 mg/dL, Borderline high >239 mg/dL, High Performed By: #### 2 4323-8, , ####[facility] LABCLIA [id number] [address] [place] Cholesterol in HDL [Mass/Vol] 38 mg/dL Low >39 [facility] Comment on above: Order Comment: Speci men Type: BLOOD SPECIMENOrdering Facility: [facility] Address: [address] [place] [address] Result Comment: 40-5 9 mg/dL, Acceptable >59 mg/dL, High: Negative risk factor for coronary heart disease <40 mg/dL, Low: Positive risk factor for coronary heart disease Performed By: #### 2 4323-8, , ####[facility] LABCLIA [id number] [address] [place] Cholesterol in LDL [Mass/Vol] 75 mg/dL Normal <100 [facility] Comment on above: Order Comment: Speci men Type: BLOOD SPECIMENOrdering Facility: [facility] Address: [address] [place] [address] Result Comment: <100 mg/dL, Optimal 100-129 mg/dL, Near optimal/above optimal 130-159 mg/dL, Borderline high 160-189 mg/dL, High >189 mg/dL, Very high Secondary prevention optimal LDL Cholesterol levels are recommended to be < 70 mg/dL Performed By: #### 2 4323-8, , ####[facility] LABCLIA [id number] [place] [address] [place] Cholesterol in LDL/Cholesterol in HDL [Mass ratio] 1.97 {ratio} Normal <2.54 [facility] Comment on above: Order Comment: Speci men Type: BLOOD SPECIMENOrdering Facility: [facility] Address: [address] [place] [address] Result Comment: Refe rence: 1. National Cholesterol Education Program ATP III Guideline At-A-Glance Quick Desk Reference: National Heart, Lung, and Blood [place]. National Institutes of Health. 2001: NIH Publication No. 01-3305. 2. An International Atherosclerosis Society position paper: global recommendations for the management of dyslipidemia: executive summary, Atherosclerosis. 2014: 232(2):410-413. Performed By: #### 2 4323-8, , ####[facility] LABCLIA [id number] [place] [address] [place] Cholesterol in VLDL [Mass/Vol] 18 mg/dL Normal <30 [facility] Comment on above: Order Comment: Speci men Type: BLOOD SPECIMENOrdering Facility: [facility] Address: [address] [place] [address] Performed By: #### 2 4323-8, , ####[facility] LABCLIA [id number] [place] [address] [place] Cholesterol non HDL [Mass/Vol] 93 mg/dL Normal <130 [facility] Comment on above: Order Comment: Speci men Type: BLOOD SPECIMENOrdering Facility: [facility] Address: [address] [place] [address] Result Comment: <130 mg/dL, Optimal 130-159 mg/dL, Near optimal/above optimal 160-189 mg/dL, Borderline high 190-219 mg/dL, High >219 mg/dL, Very high Secondary prevention optimal non HDL Cholesterol levels are recommended to be <100 mg/dL Performed By: #### 2 4323-8, , 25438-2 ####[facility] LABCLIA [id number] [address] [address] [place] Cholesterol.total/Chol esterol in HDL [Mass ratio] 3.45 {ratio} Normal <5.10 [facility] Comment on above: Order Comment: Speci men Type: BLOOD SPECIMENOrdering Facility: [facility] Address: [address] [place] [address] Performed By: #### 2 4323-8, , 71751-6 ####[facility] LABIA [id number] [place] [address] [place] FASTING TIME 12 hrs Normal [facility] Comment on above: Order Comment: Speci men Type: BLOOD SPECIMENOrdering Facility: [facility] Address: [address] [place] [address] Performed By: #### 2 4323-8, , ####[facility] LABIA [id number] [place] [address] [place] Triglyceride [Mass/Vol] 91 mg/dL Normal <150 [facility] Comment on above: Order Comment: Speci men Type: BLOOD SPECIMENOrdering Facility: [facility] Address: [address] [place] [address] Result Comment: <150 mg/dL, Normal 150-199 mg/dL, Borderline high 200-499 mg/dL, High >499 mg/dL, Very high Performed By: #### 2 4323-8, , 98547-5 ####[facility] LABIA [id number] [place] [id number] [place] Magnesium SerPl-mCncon 12-26 Magnesium [Mass/Vol] 2.1 mg/dL Normal 1.7-2.3 [facility] Comment on above: Order Comment: Speci men Type: BLOOD SPECIMENOrdering Facility: [facility] Address: [address] [place] [address] Performed By: #### 2 4323-8, 04988-9, 06134-2 ####[facility] SUZANNE [id number] [id number] [address] [place] CARLOVon 12-25-2023 CNOV Office Visit (FAMPWS ) CLARK LYLES ([id number]) 1935 M Date Time Provider Department 12/25/23 9:00 AM [facility] During your visit today, we recorded the following information about you: Pulse Respiration Blood pressure Weight 61/minute 16/minute 120/68 72.1 kg Radha Durbin PA-C 12/26/2023 2:22 PM Signed 88 year old male with c/o here for follow up. 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 08/02/2023 echocardiogram [facility]: LV size WNL, mild concentric LVH, EF [...] to suggest ischemia. 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 [...] Lymph 1.00 - 4.00 k/uL 0.81 (L) Spink% % 9.0 Abs Spink <0.87 k/uL 0.99 (H) Eosin% % 2.6 [...] included)... Normal [facility] Absolute lymphocyte countOrd ered By: Jerrell Faith on 08-04-2023 Lymphocytes Auto (Unsp spec) [#/Vol] 0.71 10*3/uL 0.83-4.51 [facility] Basophil percentageOrdered B y: Jerrell Faith on 08-04-2023 Basophils/100 WBC (Bld) 0.4 % 0-1 [facility] Chloride [Moles/Vol] 113 mmol/L 98-107 [facility] Eosinophils/100 WBC (Bld) 4.1 % 0-5 [facility] Glucose [Mass/Vol] 96 mg/dL 74-106 [facility] Neutrophils (Bld) [#/Vol] 6.1 10*3/uL 2.0-7.7 [facility] Neutrophils/100 WBC (Bld) 76.4 % 47-70 [facility] Potassium [Moles/Vol] 4.1 mmol/L 3.5-5.1 [facility] Sodium [Moles/Vol] 141 mmol/L 136-145 [facility] WBC (Bld) [#/Vol] 8.0 10*3/uL 4.4-11.0 [facility] Blood erythrocytes count (nu mber/volume)Ordered By: Jerrell Faith on 08-04-2023 RBC (Bld) [#/Vol] 4.52 10*6/uL 4.6-6.2 [facility] Blood hemoglobin measurement (mass/volume)Ordered By: Jerrell Faith on 08-04-2023 Hemoglobin (Bld) [Mass/Vol] 13.4 g/dL 13.0-16.5 [facility] Blood lymphocytes/100 leukoc ytesOrdered By: Jerrell Faith on 08-04-2023 Lymphocytes/100 WBC (Bld) 8.9 % 19-41 [facility] Blood monocytes/100 leukocyt esOrdered By: Jerrell Faith on 08-04-2023 Monocytes/100 WBC (Bld) 9.4 % 0-10 [facility] Blood platelet mean volumeOr dered By: Jerrell Faith on 08-04-2023 Platelet mean volume (Bld) [Entitic vol] 10.7 fL 6.2-12.0 [facility] Determination of erythrocyte mean corpuscular volume (MCV)Ordered By: Jerrell Faith on 08-04-2023 MCV (RBC) [Entitic vol] 92.3 fL 80-94 [facility] Hematocrit Auto (Bld) [Volum e fraction]Ordered By: Jerrell Faith on 08-04-2023 Hematocrit (Bld) [Volume fraction] 41.7 % 40-54 [facility] Laboratory - Chemistry and C hemistry - challengeOrdered By: Jerrell Faith on 08-04-2023 CO2 [Moles/Vol] 25.0 mmol/L 21.0-32.0 [facility] Urea nitrogen/Creatinine [Mass ratio] 22.1 mg/mg 10-20 [facility] Laboratory - Hematology and Cell countsOrdered By: Jerrell Faith on 08-04-2023 Erythrocyte distribution width (RBC) [Entitic vol] 49.3 fL 35.1-43.9 [facility] Erythrocyte distribution width (RBC) [Ratio] 14.6 % 11.6-14.6 [facility] Immature granulocytes/100 WBC (Bld) 0.800 % 0.0-0.9 [facility] Comment on above: IG% - Immature Granu locytes (promyelocytes, myelocytes and metamyelocytes) > 1% indicates that a LEFT SHIFT is Present. MCH (RBC) [Entitic mass] 29.6 pg 27.0-32.0 [facility] Nucleated RBC/100 WBC (Bld) [Ratio] 0 % 0-5 [facility] MCHC Auto (RBC) [Mass/Vol]Or dered By: Jerrell Faith on 08-04-2023 MCHC (RBC) [Mass/Vol] 32.1 g/dL 32-36 [facility] No Panel InformationOrdered By: Jerrell Faith on 08-04-2023 Estimated Creatinine Clearance Calc 66.51 ml/min [facility] Estimated GFR (MDRD) Amer 115 mL/min >60 [facility] Comment on above: GFR Calc Estimated GFR (MDRD) Non-Af Amer 95 mL/min >60 [facility] Comment on above: Non- GFR Calc Platelets bldOrdered By: Ismael Faith on 08-04-2023 Platelets (Bld) [#/Vol] 186 10*3/uL 150-450 [facility] Serum or plasma calcium nichole urement (mass/volume)Ordered By: Jerrell Faith on 08-04-2023 Calcium [Mass/Vol] 8.9 mg/dL 8.5-10.1 [facility] Serum or plasma creatinine m easurement (mass/volume)Ordered By: Jerrell Faith on 08-04-2023 Creatinine [Mass/Vol] 0.82 mg/dL 0.70-1.30 [facility] Comment on above: The validity of the calculated GFR & GFRAA in patients over 70 years has not been determined. Clinical correlation is essential. Serum or plasma urea nitroge n measurement (mass/volume)Ordered By: Jerrell Faith on 08-04-2023 Urea nitrogen [Mass/Vol] 18 mg/dL 7-18 [facility] Thin prep Papanicolaou smear with manual screeningOrdered By: Jerrell Faith on 08-04-2023 Thin prep Papanicolaou smear with manual screening 3 5-15 [facility] Basophil percentageOrdered B y: Jerrell Faith on 08-03-2023 Basophil percentage 2.1 mg/dL 2.5-4.9 [facility] Bilirubin [Mass/Vol] 0.30 mg/dL 0.20-1.00 [facility] Comment on above: For patients on eltr ombopag therapy, use of Dimension [place] TBIL is not recommended. Protein [Mass/Vol] 5.6 g/dL 6.4-8.2 [facility] Clostridium difficile detect ion by polymerase chain reactionOrdered By: Jerrell Faith on 08-03-2023 C. difficile DNA CAMERON+probe Ql (Unsp spec) [facility] Laboratory - Chemistry and C hemistry - challengeOrdered By: Jerrell Faith on 08-03-2023 ALP [Catalytic activity/Vol] 46 U/L 45-117 [facility] ALT [Catalytic activity/Vol] 18 U/L 16-61 [facility] Globulin (S) [Mass/Vol] 2.6 g/dL 2.2-4.2 [facility] Magnesium [Mass/Vol] 1.9 mg/dL 1.6-2.6 [facility] Serum or plasma albumin nichole urement (mass/volume)Ordered By: Jerrell Faith on 08-03-2023 Albumin [Mass/Vol] 3.0 g/dL 3.2-5.0 [facility] Serum or plasma albumin/glob ulin mass ratioOrdered By: Jerrell Faith on 08-03-2023 Albumin/Globulin [Mass ratio] 1.2 {ratio} 0.9-2.4 [facility] Thin prep Papanicolaou smear with manual screeningOrdered By: Jerrell Faith on 08-03-2023 Thin prep Papanicolaou smear with manual screening 10 U/L 15-37 [facility] Blood manual differential co mment interpretation (narrative result)Ordered By: Jasmine Tan on 08-02-2023 Manual differential comment Héctor (Bld) [Interp] COMMENT [facility] Comment on above: LYMPHOPENIA. Urine Legionella pneumophila antigen detectionOrdered By: Jasmine Tan on 08-02-2023 L. pneumophila Ag Ql (U) [facility] Absolute lymphocyte countOrd ered By: Lewis Sutton on 08-01-2023 Lymphocytes Auto (Unsp spec) [#/Vol] 0.52 10*3/uL 0.83-4.51 [facility] Basophil percentageOrdered B y: Lewis Sutton on 08-01-2023 Basophils/100 WBC (Bld) 0.2 % 0-1 [facility] Chloride [Moles/Vol] 103 mmol/L 98-107 [facility] Eosinophils/100 WBC (Bld) 0.9 % 0-5 [facility] Glucose [Mass/Vol] 117 mg/dL 74-106 [facility] Comment on above: Fasting Glucose resu lt from 100 to 125 mg/dL suggests IMPAIRED HOMEOSTASIS per A.D.A. criteria. Neutrophils (Bld) [#/Vol] 7.6 10*3/uL 2.0-7.7 [facility] Neutrophils/100 WBC (Bld) 82.0 % 47-70 [facility] Potassium [Moles/Vol] 3.1 mmol/L 3.5-5.1 [facility] Sodium [Moles/Vol] 136 mmol/L 136-145 [facility] WBC (Bld) [#/Vol] 9.2 10*3/uL 4.4-11.0 [facility] Blood erythrocytes count (nu mber/volume)Ordered By: Lewis Sutton on 08-01-2023 RBC (Bld) [#/Vol] 4.78 10*6/uL 4.6-6.2 [facility] Blood hemoglobin measurement (mass/volume)Ordered By: Lewis Sutton on 08-01-2023 Hemoglobin (Bld) [Mass/Vol] 14.8 g/dL 13.0-16.5 [facility] Blood lymphocytes/100 leukoc ytesOrdered By: Lewis Sutton on 08-01-2023 Lymphocytes/100 WBC (Bld) 5.7 % 19-41 [facility] Blood manual differential co mment interpretation (narrative result)Ordered By: Lewis Sutton on 08-01-2023 Manual differential comment Héctor (Bld) [Interp] SCANNED [facility] Blood monocytes/100 leukocyt esOrdered By: Lewis Sutton on 08-01-2023 Monocytes/100 WBC (Bld) 10.3 % 0-10 [facility] Blood platelet mean volumeOr dered By: Lewis Sutton on 08-01-2023 Platelet mean volume (Bld) [Entitic vol] 11.5 fL 6.2-12.0 [facility] Determination of erythrocyte mean corpuscular volume (MCV)Ordered By: Lewis Sutton on 08-01-2023 MCV (RBC) [Entitic vol] 89.5 fL 80-94 [facility] Hematocrit Auto (Bld) [Volum e fraction]Ordered By: Lewis Sutton on 08-01-2023 Hematocrit (Bld) [Volume fraction] 42.8 % 40-54 [facility] Influenza virus A and B and SARS-CoV-2 (COVID-19) Ag panel - Upper respiratory specimOrdered By: Lewis Sutton on 08-01-2023 SARS-CoV-2 (COVID-19) RNA CAMERON+probe Ql (Resp) [facility] Laboratory - Chemistry and C hemistry - challengeOrdered By: Lewis Sutton on 08-01-2023 CO2 [Moles/Vol] 26.0 mmol/L 21.0-32.0 [facility] Natriuretic peptide B (Bld) [Mass/Vol] 198.3 pg/mL 0-100 [facility] Urea nitrogen/Creatinine [Mass ratio] 11.8 mg/mg 10-20 [facility] Laboratory - Hematology and Cell countsOrdered By: Lewis Sutton on 08-01-2023 Erythrocyte distribution width (RBC) [Entitic vol] 46.8 fL 35.1-43.9 [facility] Erythrocyte distribution width (RBC) [Ratio] 14.3 % 11.6-14.6 [facility] Immature granulocytes/100 WBC (Bld) 0.900 % 0.0-0.9 [facility] Comment on above: IG% - Immature Granu locytes (promyelocytes, myelocytes and metamyelocytes) > 1% indicates that a LEFT SHIFT is Present. MCH (RBC) [Entitic mass] 31.0 pg 27.0-32.0 [facility] Nucleated RBC/100 WBC (Bld) [Ratio] 0 % 0-5 [facility] Laboratory - Microbiology an d Antimicrobial susceptibilityOrdered By: Jasmine Tan on 08-01-2023 SARS-CoV-2 (COVID-19) RNA CAMERON+probe Ql (Unsp spec) [facility] MCHC Auto (RBC) [Mass/Vol]Or dered By: Lewis Sutton on 08-01-2023 MCHC (RBC) [Mass/Vol] 34.6 g/dL 32-36 [facility] No Panel InformationOrdered By: Lewis Sutton on 08-01-2023 D-Dimer Quantitative (PE/DVT) 0.47 FEU/ug/m 0.27-0.49 [facility] Comment on above: NORMAL D-Dimer level (<0.50) indicates no DVT or PE. Estimated Creatinine Clearance Calc 50.69 ml/min [facility] Estimated GFR (MDRD) Amer 82 mL/min >60 [facility] Comment on above: GFR Calc Estimated GFR (MDRD) Non-Af Amer 68 mL/min >60 [facility] Comment on above: Non- GFR Calc Troponin I High Sensitivity 8 pg/mL 3.0-78.0 [facility] Comment on above: Please Note: [place] t Units and Gender Specific Reference Ranges. For more information see Policy Stat Procedure [place] High Sensitivity Troponin (TNIH) and attachments. Platelets bldOrdered By: Gabby Sutton on 08-01-2023 Platelets (Bld) [#/Vol] 175 10*3/uL 150-450 [facility] Respiratory pathogens detect ion panel by molecular detection methodOrdered By: Jasmine Tan on 08-01-2023 Respiratory pathogens DNA and RNA panel CAMERON+probe (Resp) [facility] Serum or plasma calcium nichole urement (mass/volume)Ordered By: Lewis Sutton on 08-01-2023 Calcium [Mass/Vol] 8.8 mg/dL 8.5-10.1 [facility] Serum or plasma creatinine m easurement (mass/volume)Ordered By: Lewis Sutton on 08-01-2023 Creatinine [Mass/Vol] 1.10 mg/dL 0.70-1.30 [facility] Comment on above: The validity of the calculated GFR & GFRAA in patients over 70 years has not been determined. Clinical correlation is essential. Serum or plasma urea nitroge n measurement (mass/volume)Ordered By: Lewis Sutton on 08-01-2023 Urea nitrogen [Mass/Vol] 13 mg/dL 7-18 [facility] Serum procalcitonin measurem entOrdered By: Jasmine Tan on 08-01-2023 Procalcitonin [Mass/Vol] 0.07 ng/mL 0.00-0.09 [facility] Comment on above: A procalcitonin (PCT ) [...] Papanicolaou smear with manual screening 7 5-15 [facility] CBC W Auto Differential pane l (Bld)on 06-28-2023 Basophils (Bld) [#/Vol] 0.05 10*3/uL <0.11 k/uL [facility] Basophils/100 WBC (Bld) 0.5 % [facility] Differential cell count method Nom (Bld) Auto [facility] Eosinophils (Bld) [#/Vol] 0.29 10*3/uL <0.46 k/uL [facility] Eosinophils/100 WBC (Bld) 2.6 % [facility] Erythrocyte distribution width (RBC) [Ratio] 13.9 % 11.5 - 15.0 % [facility] Hematocrit (Bld) [Volume fraction] 50.0 % 39.0 - 51.0 % [facility] Hemoglobin (Bld) [Mass/Vol] 16.7 g/dL 13.0 - 17.0 g/dL [facility] Immature granulocytes (Bld) [#/Vol] 0.10 10*3/uL High <0.10 k/uL [facility] Immature granulocytes/100 WBC (Bld) 0.9 % [facility] Lymphocytes (Bld) [#/Vol] 0.81 10*3/uL Low 1.00 - 4.00 k/uL [facility] Lymphocytes/100 WBC (Bld) 7.4 % [facility] MCH (RBC) [Entitic mass] 31.0 pg 26.0 - 34.0 pg [facility] MCHC (RBC) [Mass/Vol] 33.4 g/dL 30.5 - 36.0 g/dL [facility] MCV (RBC) [Entitic vol] 92.9 fL 80.0 - 100.0 fL [facility] Monocytes (Bld) [#/Vol] 0.99 10*3/uL High <0.87 k/uL [facility] Monocytes/100 WBC (Bld) 9.0 % [facility] Neutrophils (Bld) [#/Vol] 8.78 10*3/uL High 1.45 - 7.50 k/uL [facility] Neutrophils/100 WBC (Bld) 79.6 % [facility] Nucleated RBC (Bld) [#/Vol] <0.01 k/uL [facility] Nucleated RBC/100 WBC (Bld) [Ratio] 0.0 /100 WBC [facility] Platelet mean volume (Bld) [Entitic vol] 11.6 fL 9.0 - 12.7 fL [facility] Platelets (Bld) [#/Vol] 229 10*3/uL 150 - 400 k/uL [facility] RBC (Bld) [#/Vol] 5.38 10*6/uL 4.20 - 6.00 m/uL [facility] WBC (Bld) [#/Vol] 11.02 10*3/uL High 3.70 - 11.00 k/uL [facility] Comprehensive metabolic 2000 panelon 06-28-2023 Albumin [Mass/Vol] 4.3 g/dL 3.9 - 4.9 g/dL [facility] ALP [Catalytic activity/Vol] 53 U/L 38 - 113 U/L [facility] ALT [Catalytic activity/Vol] 26 U/L 10 - 54 U/L [facility] Anion gap [Moles/Vol] 9 mmol/L 9 - 18 mmol/L [facility] AST [Catalytic activity/Vol] 21 U/L 14 - 40 U/L [facility] Bilirubin [Mass/Vol] 1.1 mg/dL 0.2 - 1 .3 mg/dL [facility] Calcium [Mass/Vol] 9.8 mg/dL 8.5 - 10. 2 mg/dL [facility] Chloride [Moles/Vol] 103 mmol/L 97 - 10 5 mmol/L [facility] CO2 [Moles/Vol] 27 mmol/L 22 - 30 mmol/L [facility] Creatinine [Mass/Vol] 1.11 mg/dL 0.73 - 1.22 mg/dL [facility] Estimated Glomerular Filtration Rate 65 mL/min/1.73m >=60 mL/min/1.7 3m [facility] Glucose [Mass/Vol] 94 mg/dL 74 - 99 mg/dL [facility] Potassium [Moles/Vol] 4.1 mmol/L 3.7 - 5.1 mmol/L [facility] Protein [Mass/Vol] 6.3 g/dL 6.3 - 8.0 g/dL [facility] Sodium [Moles/Vol] 139 mmol/L 136 - 144 mmol/L [facility] Urea nitrogen [Mass/Vol] 16 mg/dL 9 - 24 mg/dL [facility] CTA ABD/PEL W IVCONon 2022 [facility] XR LUMBAR GENERAL 3V AP/LAT/ L5-S1on 01-31-2023 [facility] XR Lumbar spine 3 Viewson IMPRESSION: NO EVIDE NCE OF FRACTURE Technical Document Writer: GINNA Transcribe Date/Time: Jan 31 2023 11:11A Dictated by : RIVERA OLIVAS MD This examination was interpreted and the report reviewed and electronically signed by: RIVERA OLIVAS MD on Jan 31 2023 11:13AM [facility] DIVISION OF RADIOLOGY * * *Final Report* [...] calcifications are noted. DIVISION OF RADIOLOGY Provider, [facility] Siddharth [facility] - 01/31/2023 * * *Final Report* [...] noted. IMPRESSION IMPRESSION: NO EVIDENCE OF FRACTURE Technical Document Writer: PSCAd Transcribe Date/Time: Jan 31 2023 11:11A Dictated by : RIVERA OLIVAS MD This examination was interpreted and the report reviewed and electronically signed by: RIVERA OLIVAS MD on Jan 31 2023 11:13AM EST [facility] Radiology Study observation (narrative) [facility] XR Lumbar spine 3 ViewsOrder ed By: Ccf Provider on 01-31-2023 [facility] UA DIP, URINE (POC)on 2022 BILIRUBIN UA (POCT) Negative Negative Carmelo [facility] CLARITY [facility] (POCT) [facility] COLOR UA (POCT) Yellow [facility] GLUCOSE UA (POCT) Negative Negative mg/dL [facility] HEMOGLOBIN/BLOOD UA (POCT) Negative Negative [facility] KETONE UA (POCT) Negative Negative mg/dL [facility] LEUKOCYTES UA (POCT) Negative Negative [facility] NITRITE UA (POCT) Negative Negative [facility] PH UA (POCT) 5.5 4.5 - 8.0 [facility] Protein Ql (U) Negative Negative mg/dL [facility] SPECIFIC GRAVITY UA (POCT) 1.015 1.005 - 1.030 [facility] UROBILINOGEN UA (POCT) 0.2 E.U./dL Stephany l E.U./dL [facility] Office Visit: PAD, recheck diane arriola 05-31-2017 Documentation of current medications (procedure) Done Invalid Interpretation Code [facility] [employer] Work Phone: Fall risk assessment No Invalid Interpretation Code [facility] [employer] Work Phone: Tobacco smoking status NHIS Never Invalid Interpretation Code [facility] [employer] Work Phone: Tobacco use CPHS Former smoker Invalid Interpretation Code [facility] [employer] Work Phone: Lab Report: Basic Metabolic Profile (BMP)on 05-18-2017 Anion gap 9 mmol/L Invalid Interpretation Code 5-15 [facility] [employer] Work Phone: [phone] Anion gap 4 molar conc 9 Invalid Interpretation Code 15 [facility] [employer] Work Phone: Calcium mass conc 8.8 mg/dL Invalid Interpretation Code 8.5-10.1 [facility] [employer] Work Phone: Chloride molar conc 108 mmol/L High 98-107 [facility] [employer] Work Phone: CO2 23.0 mmol/L Invalid Interpretation Code 21.0-32.0 [facility] [employer] Work Phone: [phone] CO2 ppres (BldV) 23.0 mmol/L Invalid Interpretation Code 21.0-32.0 [facility] [employer] Work Phone: Creatinine mass conc 0.80 mg/dL Invalid Interpretation Code 0.70-1.30 [facility] [employer] Work Phone: eGFR (non-black) 120 mL/min/{1.73_m2} Invalid Interpretation Code >60 [facility] [employer] Work Phone: EST GFR - AA 120 mL/min Invalid Interpretation Code >60 [facility] [employer] Work Phone: GFR/1.73 sq M predicted among non-blacks MDRD vol rate/area (S/P/Bld) 99 mL/min/{1.73_m2} Invalid Interpretation Code >60 [facility] [employer] Work Phone: Glucose mass conc 120 mg/dL High 70-110 [facility] [employer] Work Phone: Potassium molar conc 3.6 mmol/L Invalid Interpretation Code 3.5-5.1 [facility] [employer] Work Phone: Sodium molar conc 140 mmol/L Invalid Interpretation Code 136-145 [facility] [employer] Work Phone: Urea nitrogen mass conc 13 mg/dL Invalid Interpretation Code 7-18 [facility] [employer] Work Phone: Urea nitrogen/Creatinine mass ratio 16.3 RATIO Invalid Interpretation Code 05-18 [facility] [employer] Work Phone: Office Visit: Awilda 05-08-20 17 Documentation of current medications (procedure) Done Invalid Interpretation Code [facility] [employer] Work Phone: Fall risk assessment No Invalid Interpretation Code [facility] [employer] Work Phone: Protein mass conc Done Invalid Interpretation Code [facility] [employer] Work Phone: Tobacco smoking status NHIS Never Invalid Interpretation Code [facility] [employer] Work Phone: Tobacco smoking status NHIS Former smoker Invalid Interpretation Code [facility] [employer] Work Phone: Tobacco use HS Former smoker Invalid Interpretation Code [facility] [employer] Work Phone: Vital Signs Date Time Vital Sign Value Performing Clinician Facility 02-08-2025 20:35-0400 Inhaled oxygen flow rate 8 L/min Brigitte Suppan [employer] Work Phone: [facility] 02-08-2025 20:35-0400 SaO2% (BldA) [Mass fraction] 90 % Brigitte Suppan [employer] Work Phone: [facility] 02-08-2025 20:08-0400 Body height 177.8 cm Brigitte Suppan [employer] Work Phone: 5([phone] [place] [address] 02-08-2025 20:08-0400 Body mass index (BMI) [Ratio] 22.1 kg/m2 Brigitte Suppan [employer] Work Phone: [facility] 02-08-2025 20:08-0400 Body weight 70 kg Brigitte Suppan [employer] Work Phone: [facility] 02-08-2025 19:45-0400 Body temperature 98.3 [degF] Brigitte Suppan [employer] Work Phone: 9([phone] [place] [address] 02-08-2025 19:45-0400 Diastolic blood pressure 65 mm[Hg] Brigitte Suppan [employer] Work Phone: [facility] 02-08-2025 19:45-0400 Heart rate 58 /min Brigitte Suppan [employer] Work Phone: [facility] 02-08-2025 19:45-0400 Respiratory rate 18 /min Brigitte Segal [employer] Work Phone: [facility] 02-08-2025 19:45-0400 Systolic blood pressure 128 mm[Hg] Brigitte Segal [employer] Work Phone: [facility] 10-16-2024 08:56-0400 Body height 177.[address] Neo Tejeda DO Work Phone: [facility] 10-16-2024 08:56-0400 Body mass index (BMI) [Ratio] 23.8 kg/m2 Dr. Neo Tejeda DO Work Phone: 4(076)[phone] [place] [address] 10-16-2024 08:56-0400 Body temperature 97.3 [degF] Dr. Neo Tejeda DO Work Phone: 5(376)[phone] [place] [address] 10-16-2024 08:56-0400 Body weight 75.[address] Neo Tejeda DO Work Phone: 1(678)901-543362 [place] [address] 10-16-2024 08:56-0400 Diastolic blood pressure 65 mm[Hg] Dr. Neo Tejeda DO Work Phone: 5(575)111-993962 [place] [address] 10-16-2024 08:56-0400 Heart rate 73 /min Dr. Neo Tejeda DO Work Phone: 7(645)700-744262 [place] [address] 10-16-2024 08:56-0400 Respiratory rate 20 /min Dr. Neo Tejeda DO Work Phone: [phone])[phone] [place] [address] 10-16-2024 08:56-0400 SaO2% (BldA) [Mass fraction] 90 % Dr. Neo Tejeda DO Work Phone: 6(177)[phone] [place] [address] 10-16-2024 08:56-0400 Systolic blood pressure 121 mm[Hg] Dr. Neo Tejeda DO Work Phone: [facility] 09-19-2024 14:55-0500 Body mass index (BMI) [Ratio] 22.96 kg/m2 Brigitte Segal [employer]AND CLEARER[employer]aceySTRATEGIC DEVELOPMENT MANAGER Work Phone: [facility] 09-19-2024 14:55-0500 Body temperature 98.71 [degF] Brigitte Suppan [employer] CLE[employer]ER.STRATEGIC DEVELOPMENT MANAGER Work Phone: [facility] 09-19-2024 14:55-0500 Body weight 72.58 kg Brigitte Suppan L[employer] CLE[employer]ER[employer]STRATEGIC DEVELOPMENT MANAGER Work Phone: [facility] 09-19-2024 14:55-0500 Diastolic blood pressure 62 mm[Hg] Brigitte Suppan L[employer] CLE[employer]ER.STRATEGIC DEVELOPMENT MANAGER Work Phone: [facility] 09-19-2024 14:55-0500 Heart rate 80 /min Brigitte Suppan L[employer] CLE[employer]ER.STRATEGIC DEVELOPMENT MANAGER Work Phone: [facility] 09-19-2024 14:55-0500 SaO2% (BldA) [Mass fraction] 90 % Brigitte Suppan L[employer] CLE[employer]ER.STRATEGIC DEVELOPMENT MANAGER Work Phone: [facility] Comment on above: 3 liters of oxygen 09-19-2024 14:55-0500 Systolic blood pressure 128 mm[Hg] Brigitte Suppan L[employer] CLEARER.STRATEGIC DEVELOPMENT MANAGER Work Phone: [facility] 09-15-2024 15:00-0500 Body temperature 97.6 [degF] Dr. Neo Tejeda DO Work Phone: [facility] 09-15-2024 15:00-0500 Diastolic blood pressure 71 mm[Hg] Dr. Neo Tejeda DO Work Phone: [facility] 09-15-2024 15:00-0500 Heart rate 82 /min Dr. Neo Tejeda DO Work Phone: [facility] 09-15-2024 15:00-0500 Respiratory rate 16 /min Dr. Neo Tejeda DO Work Phone: [facility] 09-15-2024 15:00-0500 SaO2% (BldA) [Mass fraction] 93 % Dr. Neo Tejeda DO Work Phone: [facility] 09-15-2024 15:00-0500 Systolic blood pressure 140 mm[Hg] Dr. Neo Tejeda DO Work Phone: [facility] 09-15-2024 10:09-0500 Body weight 73.[address] Neo Tejeda DO Work Phone: [facility] 09-15-2024 09:00-0500 Inhaled oxygen flow rate 3 L/min Dr. Neo Tejeda DO Work Phone: [facility] 09-15-2024 03:59-0500 Body mass index (BMI) [Ratio] 23.1 kg/m2 Dr. Neo Tejeda DO Work Phone: [facility] 09-12-2024 09:19-0500 Inhaled oxygen concentration 34 % Dr. Neo Tejeda DO Work Phone: [facility] 03-27-2024 07:47-0400 Body mass index (BMI) [Ratio] 21.81 kg/m2 Brigitte Suppan L[employer] CLEARER.STRATEGIC DEVELOPMENT MANAGER Work Phone: [facility] 03-27-2024 07:47-0400 Body weight 68.95 kg Brigitte Suppan LAND CLEARER.STRATEGIC DEVELOPMENT MANAGER Work Phone: [facility] 03-27-2024 07:47-0400 Diastolic blood pressure 67 mm[Hg] Brigitte Suppan LAND CLEARER.STRATEGIC DEVELOPMENT MANAGER Work Phone: [facility] 03-27-2024 07:47-0400 Heart rate 63 /min Brigitte Suppan LAND CLEARER.STRATEGIC DEVELOPMENT MANAGER Work Phone: [facility] 03-27-2024 07:47-0400 Respiratory rate 16 /min Brigitte Suppan LAND CLEARER.STRATEGIC DEVELOPMENT MANAGER Work Phone: [facility] 03-27-2024 07:47-0400 SaO2% (BldA) [Mass fraction] 94 % Brigitte Suppan L[employer] CLEARER.STRATEGIC DEVELOPMENT MANAGER Work Phone: [facility] 03-27-2024 07:47-0400 Systolic blood pressure 126 mm[Hg] Brigitte Suppan LAND CLEARER.STRATEGIC DEVELOPMENT MANAGER Work Phone: [facility] 02-25-2024 08:22-0400 Body mass index (BMI) [Ratio] 21.81 kg/m2 Brigitte Suppan L[employer] CLEARER.STRATEGIC DEVELOPMENT MANAGER Work Phone: [facility] 02-25-2024 08:22-0400 Body weight 68.95 kg Brigitte Suppan LAND CLEARER.STRATEGIC DEVELOPMENT MANAGER Work Phone: [facility] 02-25-2024 08:22-0400 Diastolic blood pressure 70 mm[Hg] Brigitte Suppan LAND CLEARER.STRATEGIC DEVELOPMENT MANAGER Work Phone: [facility] 02-25-2024 08:22-0400 Heart rate 60 /min Brigitte Suppan LAND CLEARER.STRATEGIC DEVELOPMENT MANAGER Work Phone: [facility] 02-25-2024 08:22-0400 Respiratory rate 16 /min Brigitte Suppan LAND CLEARER.STRATEGIC DEVELOPMENT MANAGER Work Phone: [facility] 02-25-2024 08:22-0400 SaO2% (BldA) [Mass fraction] 94 % Brigitte Suppan LAND CLEARER.STRATEGIC DEVELOPMENT MANAGER Work Phone: [facility] 02-25-2024 08:22-0400 Systolic blood pressure 148 mm[Hg] Brigitte Suppan LAND CLEARER.STRATEGIC DEVELOPMENT MANAGER Work Phone: [facility] 12-25-2023 08:53-0400 Body mass index (BMI) [Ratio] 22.81 kg/m2 NA Durbin PA-C Work Phone: [facility] 12-25-2023 08:53-0400 Body weight 72.12 kg NA Durbin PA-C Work Phone: [facility] 12-25-2023 08:53-0400 Diastolic blood pressure 68 mm[Hg] NA Durbin PA-C Work Phone: [facility] 12-25-2023 08:53-0400 Heart rate 61 /min NA Durbin PA-C Work Phone: [facility] 12-25-2023 08:53-0400 Respiratory rate 16 /min NA Durbin PA-C Work Phone: [facility] 12-25-2023 08:53-0400 SaO2% (BldA) [Mass fraction] 95 % NA Durbin PA-C Work Phone: [facility] 12-25-2023 08:53-0400 Systolic blood pressure 120 mm[Hg] NA Durbin PA-C Work Phone: [facility] 09-25-2023 09:07-0500 Body weight 72.12 kg NA Durbin PA-C Work Phone: [facility] 09-25-2023 09:07-0500 Diastolic blood pressure 62 mm[Hg] NA Durbin PA-C Work Phone: [facility] 09-25-2023 09:07-0500 Heart rate 66 /min NA Durbin PA-C Work Phone: [facility] 09-25-2023 09:07-0500 Respiratory rate 16 /min NA Durbin PA-C Work Phone: [facility] 09-25-2023 09:07-0500 SaO2% (BldA) [Mass fraction] 92 % NA Durbin PA-C Work Phone: [facility] 09-25-2023 09:07-0500 Systolic blood pressure 110 mm[Hg] NA Durbin PA-C Work Phone: [facility] 08-04-2023 12:46-0500 SaO2% (BldA) [Mass fraction] 98 % PA NA Durbin PA Work Phone: [facility] 08-04-2023 10:58-0500 Heart rate 75 /min PA NA Durbin PA Work Phone: [facility] 08-04-2023 10:58-0500 Respiratory rate 16 /min PA NA Durbin PA Work Phone: [facility] 08-04-2023 09:00-0500 Body temperature 97.2 [degF] PA NA Durbin PA Work Phone: [facility] 08-04-2023 09:00-0500 Diastolic blood pressure 62 mm[Hg] PA NA Durbin PA Work Phone: [facility] 08-04-2023 09:00-0500 Systolic blood pressure 138 mm[Hg] PA NA Durbin PA Work Phone: [facility] 08-04-2023 07:20-0500 Inhaled oxygen flow rate 4 L/min PA NA Durbin PA Work Phone: [facility] 08-04-2023 03:07-0500 Body mass index (BMI) [Ratio] 22.6 kg/m2 PA NA Durbin PA Work Phone: [facility] 08-04-2023 03:07-0500 Body weight 71.4 kg PA NA Durbin PA Work Phone: [facility] 08-02-2023 13:52-0500 Body height 177.8 cm PA NA Durbin PA Work Phone: [facility] 08-01-2023 20:53-0500 Inhaled oxygen concentration 92 % PA NA Durbin PA Work Phone: [facility] 08-01-2023 16:17-0500 Diastolic blood pressure 76 mm[Hg] [facility] 08-01-2023 16:17-0500 Heart rate 77 /min [facility] 08-01-2023 16:17-0500 SaO2% (BldA) [Mass fraction] 91 % [facility] 08-01-2023 16:17-0500 Systolic blood pressure 150 mm[Hg] [facility] 08-01-2023 16:16-0500 Inhaled oxygen flow rate 5 L/min [facility] 08-01-2023 16:16-0500 Respiratory rate 24 /min [facility] 08-01-2023 12:44-0500 Body height 177.8 cm [facility] 08-01-2023 12:44-0500 Body mass index (BMI) [Ratio] 23.3 kg/m2 [facility] 08-01-2023 12:44-0500 Body temperature 97.9 [degF] [facility] 08-01-2023 12:44-0500 Body weight 73.66 kg [facility] 06-28-2023 08:57-0500 Body weight 70.94 kg NA Durbin PA-C Work Phone: [facility] 06-28-2023 08:57-0500 Diastolic blood pressure 70 mm[Hg] NA Durbin PA-C Work Phone: [facility] 06-28-2023 08:57-0500 Heart rate 60 /min NA Durbin PA-C Work Phone: [facility] 06-28-2023 08:57-0500 Respiratory rate 16 /min NA Durbin PA-C Work Phone: [facility] 06-28-2023 08:57-0500 SaO2% (BldA) [Mass fraction] 97 % NA Durbin PA-C Work Phone: [facility] 06-28-2023 08:57-0500 Systolic blood pressure 122 mm[Hg] NA Durbin PA-C Work Phone: [facility] 05-25-2023 11:07-0400 Body temperature 98.1 [degF] Jair Marvin MD Work Phone: [facility] 05-25-2023 11:07-0400 Body weight 71.67 kg Jair Marvin MD Work Phone: [facility] 05-25-2023 11:07-0400 Diastolic blood pressure 69 mm[Hg] Jair Marvin MD Work Phone: [facility] 05-25-2023 11:07-0400 Heart rate 70 /min Jair Marvin MD Work Phone: [facility] 05-25-2023 11:07-0400 Respiratory rate 18 /min Jair Marvin MD Work Phone: [facility] 05-25-2023 11:07-0400 SaO2% (BldA) [Mass fraction] 93 % Jair Marvin MD Work Phone: [facility] 05-25-2023 11:07-0400 Systolic blood pressure 132 mm[Hg] Jair Marvin MD Work Phone: [facility] 02-08-2023 09:28-0400 Body weight 71.67 kg NA Durbin PA-C Work Phone: [facility] 02-08-2023 09:28-0400 Diastolic blood pressure 80 mm[Hg] NA Durbin PA-C Work Phone: [facility] 02-08-2023 09:28-0400 Heart rate 56 /min NA Durbin PA-C Work Phone: [facility] 02-08-2023 09:28-0400 Respiratory rate 16 /min NA Durbin PA-C Work Phone: [facility] 02-08-2023 09:28-0400 SaO2% (BldA) [Mass fraction] 96 % NA Durbin PA-C Work Phone: [facility] 02-08-2023 09:28-0400 Systolic blood pressure 148 mm[Hg] NA Durbin PA-C Work Phone: [facility] 01-31-2023 10:43-0400 Body temperature 97.9 [degF] Rebekah Athy PA-C Work Phone: [facility] 01-31-2023 10:43-0400 Body weight 73.57 kg Rebekah Athy PA-C Work Phone: [facility] 01-31-2023 10:43-0400 Diastolic blood pressure 86 mm[Hg] Rebekah Athy PA-C Work Phone: [facility] 01-31-2023 10:43-0400 Heart rate 58 /min Rebekah Athy PA-C Work Phone: [facility] 01-31-2023 10:43-0400 Respiratory rate 18 /min Rebekah Athy PA-C Work Phone: [facility] 01-31-2023 10:43-0400 SaO2% (BldA) [Mass fraction] 97 % Rebekah Athy PA-C Work Phone: [facility] 01-31-2023 10:43-0400 Systolic blood pressure 164 mm[Hg] Rebekah Athy PA-C Work Phone: [facility] 11-27-2022 14:57-0400 Body weight 73.03 kg NA Durbin PA-C Work Phone: [facility] 11-27-2022 14:57-0400 Diastolic blood pressure 68 mm[Hg] NA Durbin PA-C Work Phone: [facility] 11-27-2022 14:57-0400 Heart rate 57 /min NA Durbin PA-C Work Phone: [facility] 11-27-2022 14:57-0400 SaO2% (BldA) [Mass fraction] 96 % NA Durbin PA-C Work Phone: [facility] 11-27-2022 14:57-0400 Systolic blood pressure 130 mm[Hg] NA Durbin PA-C Work Phone: [facility] 06-21-2022 23:01-0500 Heart rate 85 /min PA NA Durbin PA Work Phone: [facility] Work Phone: 06-21-2022 23:01-0500 Respiratory rate 15 /min PA NA Durbin PA Work Phone: [facility] Work Phone: 06-21-2022 23:01-0500 SaO2% (BldA) [Mass fraction] 98 % PA NA Durbin PA Work Phone: [facility] Work Phone: 06-21-2022 21:53-0500 Body height 177.8 cm PA NA Durbin PA Work Phone: [facility] Work Phone: 06-21-2022 21:53-0500 Body mass index (BMI) [Ratio] 22.9 kg/m2 PA NA Durbin PA Work Phone: [facility] Work Phone: 06-21-2022 21:53-0500 Body temperature 97.8 [degF] PA NA Durbin PA Work Phone: [facility] Work Phone: 06-21-2022 21:53-0500 Body weight 72.57 kg PA NA Durbin PA Work Phone: [facility] Work Phone: 06-21-2022 21:53-0500 Diastolic blood pressure 80 mm[Hg] PA NA Durbin PA Work Phone: [facility] Work Phone: 06-21-2022 21:53-0500 Systolic blood pressure 166 mm[Hg] PA NA Durbin PA Work Phone: [facility] Work Phone: 02-08-2022 12:26-0400 Body height 177.[address] Brian Mackenzie III Work Phone: [facility] Work Phone: 02-08-2022 12:26-0400 Body mass index (BMI) [Ratio] 23.5 kg/m2 Dr. Brian Mackenzie III Work Phone: [facility] Work Phone: 02-08-2022 12:26-0400 Body weight 74.[address] Brian Mackenzie III Work Phone: [facility] Work Phone: 02-08-2022 12:26-0400 Diastolic blood pressure 69 mm[Hg] Dr. Brian Mackenzie III Work Phone: [facility] Work Phone: 02-08-2022 12:26-0400 Heart rate 56 /min Dr. Brian Mackenzie III Work Phone: [facility] Work Phone: 02-08-2022 12:26-0400 Respiratory rate 16 /min Dr. Brian Mackenzie III Work Phone: [facility] Work Phone: 02-08-2022 12:26-0400 SaO2% (BldA) [Mass fraction] 96 % Dr. Brian Mackenzie III Work Phone: [facility] Work Phone: 02-08-2022 12:26-0400 Systolic blood pressure 125 mm[Hg] Dr. Brian Mackenzie III Work Phone: [facility] Work Phone: 05-31-2017 08:40-0400 BMI (Body Mass Index) 23.11 kg/m2 Quan Mackenzie MD [facility] Work Phone: 05-31-2017 08:40-0400 Body Temperature 97.9 [degF] Quan Mackenzie MD [facility] Work Phone: 05-31-2017 08:40-0400 BP Diastolic 70 mm[Hg] Quan Mackenzie MD [facility] Work Phone: 05-31-2017 08:40-0400 BP Systolic 150 mm[Hg] Quan Mackenzie MD [facility] Work Phone: 05-31-2017 08:40-0400 Height 182.88 cm Quan Mackenzie MD [facility] Work Phone: 05-31-2017 08:40-0400 Pulse (Heart Rate) 74 /min Quan Mackenzie MD [facility] Work Phone: 05-31-2017 08:40-0400 Respiratory Rate 20 /min Quan Mackenzie MD [facility] Work Phone: 05-31-2017 08:40-0400 Weight 77.29 kg Quan Mackenzie MD [facility] Work Phone: 05-08-2017 14:55-0400 BMI (Body Mass Index) 23.08 kg/m2 Quan Mackenzie MD [facility] Work Phone: 05-08-2017 14:55-0400 Body Temperature 97.5 [degF] Quan Mackenzie MD [facility] Work Phone: 05-08-2017 14:55-0400 BP Diastolic 76 mm[Hg] Quan Mackenzie MD [facility] Work Phone: 05-08-2017 14:55-0400 BP Systolic 175 mm[Hg] Quan Mackenzie MD [facility] Work Phone: 05-08-2017 14:55-0400 Height 182.88 cm Quan Mackenzie MD [facility] Work Phone: 05-08-2017 14:55-0400 Pulse (Heart Rate) 67 /min Quan Mackenzie MD [facility] Work Phone: 05-08-2017 14:55-0400 Respiratory Rate 20 /min Quan Mackenzie MD [facility] Work Phone: 05-08-2017 14:55-0400 Weight 77.2 kg Quan Mackenzie MD [facility] Work Phone: Encounters Encounter Date Encounter Type Care Provider Facility Start: 02-08-2025 Evaluation and manag ement of inpatient Dr. Janice Sanford MD -[facility] Work Phone: Start: 02-08-2025 Non-patient / Non-visit Dr. Gini Sanford MD -[facility] Work Phone: Start: 10-31-2024 End: 10-31-2024 Telephone encounter Brigitte Segal LAND CLEARER.STRATEGIC DEVELOPMENT MANAGER Work Phone: [facility] Comment on above: [id number]; Initial Consu lt Start: 10-31-2024 ambulatory Brigitte Jacky Facil ity:[facility] Start: 10-27-2024 End: 10-27-2024 Telephone encounter Brigitte Segal LAND CLEARER.STRATEGIC DEVELOPMENT MANAGER Work Phone: [facility] [place] Comment on above: Orders; patient POC Start: 10-16-2024 End: 10-16-2024 Patient encounter procedure Kalyn DALY -[place] Work Phone: Start: 10-16-2024 End: 10-16-2024 ambulatory Brigitte Segal Facility[facility] Start: 10-15-2024 End: 10-30-2024 Telephone encounter Brigitte Segal APRN.STRATEGIC DEVELOPMENT MANAGER Work Phone: [facility] [place] Comment on above: Patient Update Start: 10-03-2024 End: 10-03-2024 Telephone encounter Brigitte Segal APRN.STRATEGIC DEVELOPMENT MANAGER Work Phone: [facility] [place] Comment on above: Oxygen; FYI-No Actio n Needed (/) Start: 09-19-2024 End: 09-19-2024 ambulatory BRIGITTE SEGAL Facility:[facility] Start: 09-19-2024 End: 09-19-2024 Office outpatient visit 25 minutes Brigitte Segal APRN.STRATEGIC DEVELOPMENT MANAGER Work Phone: [facility] Comment on above: Chronic insomnia (Pr imary Dx); Benign prostatic hyperplasia with nocturia; Screening for depression; Hyperlipidemia LDL goal <100; Essential hypertension, benign; Parkinson's disease without dyskinesia, unspecified whether manifestations fluctuate (HCC); 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; Acute respiratory failure with hypoxia (HCC) Start: 09-19-2024 End: 09-19-2024 Telephone encounter Brigitte Segal APRN.STRATEGIC DEVELOPMENT MANAGER Work Phone: [facility] [place] Comment on above: Home Health PT Plan of Care Start: 09-17-2024 End: 09-22-2024 Telephone encounter Brigitte Segal APRN.STRATEGIC DEVELOPMENT MANAGER Work Phone: [facility] [place] Comment on above: Alf Plan of Care Start: 09-15-2024 End: 09-15-2024 Telephone encounter Brigitte Segal APRN.STRATEGIC DEVELOPMENT MANAGER [facility] Comment on above: [facility] Health Orders Start: 09-15-2024 Non-patient / Non-visit Dr. John Soliz MD -[facility] Work Phone: Start: 09-14-2024 Non-patient / Non-visit Dr. Lester Eduardo [facility] Work Phone: Start: 09-13-2024 Non-patient / Non-visit Dr. Lester Eduardo [facility] Work Phone: Start: 09-12-2024 Non-patient / Non-visit Dr. Lester Eduardo [facility] Work Phone: Start: 09-11-2024 Non-patient / Non-visit Dr. Lester Eduardo [facility] Work Phone: Start: 09-10-2024 Non-patient / Non-visit Dr. Lester Eduardo [facility] Work Phone: Start: 09-09-2024 End: 09-09-2024 Telephone encounter Brigitte Segal LAND CLEARER.STRATEGIC DEVELOPMENT MANAGER Work Phone: [facility] [place] Start: 09-09-2024 Non-patient / Non-visit Dr. Lester Eduardo [facility] Work Phone: Start: 09-08-2024 ambulatory Brigitte Segal Facil ity:[facility] Start: 09-08-2024 Non-patient / Non-visit [facility] Pederson [facility] Start: 09-08-2024 Non-patient / Non-visit Dr. Lester Eduardo [facility] Work Phone: Start: 09-07-2024 Non-patient / Non-visit Dr. Jerrell badillo [place] -[facility] Work Phone: Start: 09-07-2024 ambulatory Lester Perdomo Facility:[facility] Start: 09-07-2024 End: 09-15-2024 Evaluation and management of inpatient Jerrell Faith Facility:[facility] Start: 03-27-2024 End: 03-27-2024 ambulatory BRIGITTE SEGAL Facility:[facility] Start: 03-27-2024 End: 03-27-2024 Office outpatient visit 15 minutes Brigitte A Suppan LAND CLEARER.STRATEGIC DEVELOPMENT MANAGER Work Phone: [facility] Comment on above: S/P primary angiopla sty with coronary stent; PAD (peripheral artery disease) (HCC); Hyperlipidemia LDL goal <100; Anxiety state; Benign prostatic hyperplasia with nocturia; Essential hypertension, benign; Left sided abdominal pain Start: 03-13-2024 Refill Radha KING-C Work Phone: [facility] Comment on above: Refill Request Start: 02-28-2024 ambulatory Radha KING Fac ility:[facility] Start: 02-26-2024 Telephone encounter Brigitte A Suppan LAND CLEARER.STRATEGIC DEVELOPMENT MANAGER Work Phone: [facility] Start: 02-25-2024 End: 02-25-2024 ambulatory BRIGITTE A SUPPAN Facility:[facility] Start: 02-25-2024 End: 02-25-2024 Office outpatient visit 15 minutes Brigitte A Suppan LAND CLEARER.STRATEGIC DEVELOPMENT MANAGER Work Phone: [facility] Comment on above: Left sided abdominal pain (Primary Dx); Essential hypertension, benign Start: 02-19-2024 End: 02-19-2024 ambulatory Radha KING Facility:[facility] Start: 02-09-2024 End: 02-09-2024 Emergency department patient visit Radha KING Facility:[facility] Start: 12-31-2023 Refill Radha KENNEDYC Work Phone: [facility] Comment on above: Refill Request Start: 12-28-2023 Telephone encounter Walter Gomez MD Work Phone: [facility] Comment on above: Results Start: 12-27-2023 End: 12-27-2023 ambulatory CASPER DURBIN Facility:[facility] Start: 12-25-2023 End: 12-25-2023 ambulatory CASPER DURBIN Facility:[facility] Start: 12-25-2023 End: 12-25-2023 Patient encounter procedure Radha Durbin PA-C Work Phone: [facility] Comment on above: Coronary artery dise ase involving 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 (Primary Dx); S/P [...] disorder, mild, abuse Start: 12-13-2023 Refill Radha KINGRule. Work Phone: [facility] [place] Comment on above: Refill Request Start: 09-25-2023 End: 09-25-2023 Patient encounter procedure Radha Durbin PA-C Work Phone: [facility] [place] Comment on above: Coronary artery dise ase involving 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; S/P primary angioplasty [...] Non-patient / Non-visit CHRISTINE KING Work Phone: [facility] Work Phone: Start: 08-03-2023 Non-patient / Non-visit CHRISTINE KING Work Phone: [facility] Work Phone: Start: 08-02-2023 Non-patient / Non-visit CHRISTINE KING Work Phone: [facility] Work Phone: Start: 08-01-2023 End: 08-04-2023 Evaluation and management of inpatient CHRISTINE NANDA Ramakrishna PA Work Phone: [facility] Work Phone: Start: 08-01-2023 Evaluation and manag ement of inpatient [facility] Work Phone: Start: 07-10-2023 Refill Radha Salgado on PA-C Work Phone: [facility] Comment on above: Refill Request Start: 07-02-2023 Telephone encounter Radha Durbin PA-C Work Phone: [facility] Start: 06-28-2023 End: 06-28-2023 Patient encounter procedure Radha Durbin PA-C Work Phone: [facility] Comment on above: Coronary artery dise ase involving 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 (Primary Dx); S/P primary angioplasty with coronary stent; Angina pectoris ([facility]); Atherosclerosis of aorta ([facility]); Essential hypertension, benign; Hyperlipidemia LDL goal <100; PAD (peripheral artery disease) ([facility]); Parkinson's disease without dyskinesia, with fluctuating manifestations; Hyperbilirubinemia; Gastroesophageal reflux disease, unspecified whether esophagitis present; Benign prostatic hyperplasia with nocturia; Anxiety state; Diarrhea, unspecified type Start: 06-18-2023 Refill Radha Salgado on PA-C Work Phone: [facility] Comment on above: Refill Request Start: 05-25-2023 End: 05-25-2023 Patient encounter procedure Jair Marvin MD Work Phone: [facility] Comment on above: Abrasion of anterior right lower leg, initial encounter (Primary Dx) Start: 05-14-2023 Telephone encounter Radah Salgadoon PA-C Work Phone: [facility] Comment on above: Results Start: 05-11-2023 Telephone encounter Radha Durbin PA-C Work Phone: [facility] Comment on above: Results Start: 05-11-2023 End: 05-11-2023 Subsequent hospital visit by physician Nasrin [facility] (I-Stat) Work Phone: [facility] Comment on above: Atherosclerosis of a ken (HCC) [I70.0] Start: 02-08-2023 End: 02-08-2023 Patient encounter procedure Radha Justin Durbin PA-C Work Phone: [facility] [place] Comment on above: Piriformis syndrome, left (Primary Dx); Somatic dysfunction of left sacroiliac joint Start: 01-31-2023 End: 01-31-2023 Subsequent hospital visit by physician Xr [facility] [place] Work Phone: Radiology Comment on above: Back pain of lumbar region with sciatica [M54.40] Start: 01-31-2023 End: 01-31-2023 Patient encounter procedure Rebekah KENNEDYC Work Phone: [facility] Comment on above: Back pain of lumbar region with sciatica (Primary Dx) Start: 01-12-2023 Refill Walter Gomez MD Work Phone: [facility] [place] Comment on above: Refill Request Start: 11-30-2022 Telephone encounter Radha Justin Durbin PA-C Work Phone: [facility] [place] Comment on above: Results Start: 11-27-2022 End: 11-27-2022 Patient encounter procedure Radha Justin KENNEDYC Work Phone: [facility] [place] Comment on above: S/P primary angiopla sty with coronary stent (Primary Dx); PAD (peripheral artery disease) ([facility]); Hyperlipidemia LDL goal <100; Essential hypertension, benign; Angina pectoris ([facility]); Parkinson's disease ([facility]); Gastroesophageal reflux disease, unspecified whether esophagitis present; Iron deficiency anemia due to chronic blood loss; Benign prostatic hyperplasia with nocturia; Restless legs syndrome; Anxiety state; Elevated PSA; Chronic insomnia Start: 08-07-2022 Refill Radha benjamin PA-C Work Phone: [facility] [place] Comment on above: Refill Request Start: 07-07-2022 Refill Radha benjamin PA-C Work Phone: [facility] Comment on above: Refill Request Start: 06-21-2022 End: 06-21-2022 Emergency department patient visit CHRISTINE KING Work Phone: [facility] Start: 04-10-2022 Refill Radha Salgado on PA-C Work Phone: [facility] Comment on above: Refill Request Start: 02-27-2022 Non-patient / Non-visit Dr. Fr georgina Mackenzie III Work Phone: [facility] Start: 02-27-2022 End: 02-27-[address] Brian Mackenzie III Work Phone: [facility] Start: 02-08-2022 End: 02-08-[address] Brian Mackenzie III Work Phone: [facility] Start: 01-09-2022 Refill Radha Salgado on PA-C Work Phone: [facility] Comment on above: Refill Request Procedures Date Procedure Procedure Detail Performing Clinician Start: 02-08-2025 Estimated creatinine clearance Brigitte Segal [employer] Work Phone: Start: 02-08-2025 Serum inorganic phos phate measurement Brigitte Segal [employer] Work Phone: Start: 09-19-2024 Adult depression scr eening assessment Brigitte Segal LAND CLEARER.STRATEGIC DEVELOPMENT MANAGER Work Phone: Start: 09-14-2024 Estimated creatinine clearance [...] primary angioplasty with coronary stent Brigitte Segal LAND CLEARER.STRATEGIC DEVELOPMENT MANAGER Work Phone: Plan of Treatment Date Care Activity Detail Author Start: 02-24-2027 Diabetes Screening Diabetes Screening [facility] Start: 12-26-2026 Diabetes Screening Diabetes Screening [facility] Start: 06-28-2026 Diabetes Screening Diabetes Screening [facility] Start: 05-10-2026 Urine microalbumin profile [facility] Start: 11-29-2025 DIABETES SCREEN DIABETES SCREEN [facility] Start: 11-29-2025 Diabetes Screening Diabetes Screening [facility] Start: 09-19-2025 Depression Screening Depression Screening [facility] Start: 03-19-2025 End: 03-19-2025 Patient encounter procedure 03/19/2025 10:40 AM EDT Office Visit [facility] [place] [address] [place] [address] Brigitte Segal APRN.STRATEGIC DEVELOPMENT MANAGER [address] [place] [address] 6 month exam [facility] [place] Comment on above: 6 month exam Start: 02-09-2025 CT of thorax with contrast Chest WITH Contrast [facility] Start: 02-09-2025 Thyroid stimulating hormone measurement [facility] Start: 02-08-2025 End: 02-08-2025 [facility] Start: 02-08-2025 Application of intermittent pneumatic compression device [facility] Start: 02-08-2025 Following clinical pathway protocol [facility] Start: 02-08-2025 Aspiration precautions [facility] Start: 02-08-2025 Assessment of risk of venous thromboembolism [facility] Start: 02-08-2025 Cardiac monitoring [facility] Start: 02-08-2025 Catheterization of vein [facility] Start: 02-08-2025 Consultation [facility] Start: 02-08-2025 Continuous pulse oximetry [facility] Start: 02-08-2025 Elevation of head of bed [facility] Start: 02-08-2025 Exercises [facility] Start: 02-08-2025 Incentive spirometry [facility] Start: 02-08-2025 Inhalation therapy procedure [facility] Start: 02-08-2025 Insertion of catheter into peripheral vein [facility] Start: 02-08-2025 Introduction of urinary catheter [facility] Start: 02-08-2025 Measuring intake and output [facility] Start: 02-08-2025 Notification of physician [facility] Start: 02-08-2025 Oxygen therapy [facility] Start: 02-08-2025 Patient referral to dietitian [facility] Start: 02-08-2025 Providing care according to standard [facility] Start: 02-08-2025 Provision of activity privileges [facility] Start: 02-08-2025 Referral to occupational therapist [facility] Start: 02-08-2025 Referral to service [facility] Start: 02-08-2025 Speech therapy assessment [facility] Start: 02-08-2025 Telemedicine consultation with patient [facility] Start: 02-08-2025 Tobacco use cessation education [facility] Start: 02-08-2025 End: 02-08-2025 [facility] Start: 02-08-2025 MRI of brain with contrast Brain W/WO Contrast [facility] Start: 02-08-2025 Verification routine [facility] Start: 02-08-2025 Admission procedure [facility] Start: 01-26-2025 [facility] on above: [facility] from 03/30/2024 (Declined at t his time) Start: 12-26-2024 Hepatitis B surface antibody level LDL Cholesterol [facility] Start: 12-24-2024 Covid-19 Vaccine ( season) Covid-19 Vaccine () [facility] Comment on above: Postponed from 08/31/2023 (Declined at t his time) Start: 12-24-2024 DIABETES SCREEN DIABETES SCREEN [facility] Start: 10-20-2024 End: 10-20-2024 Patient encounter procedure 10/20/2024 10:00 AM EDT Office Visit [facility] [address] [place] [address] Brigitte Segal LAND CLEARER.STRATEGIC DEVELOPMENT MANAGER [address] [place], [place] [address] follow up [facility] Comment on above: follow up Start: 09-19-2024 End: 09-19-2024 Patient encounter procedure 09/19/2024 2:40 PM EST Office Visit Family [facility] [address] [place], [place] [id number] Brigitte Segal, LAND CLEARER.STRATEGIC DEVELOPMENT MANAGER [address] [place], [place] [id number] follow up [facility] for hypoxia [facility] Comment on above: follow up [facility] for hypoxia Start: 09-15-2024 Referral to service [facility] Start: 09-15-2024 Patient discharge [facility] Start: 09-08-2024 Referral to occupational therapist [facility] Start: 09-08-2024 Referral to service [facility] Start: 09-08-2024 Physiotherapy of chest [facility] Start: 09-07-2024 Following clinical pathway protocol [facility] Start: 09-07-2024 Ambulation without limitation [facility] Start: 09-07-2024 Assessment of risk of venous thromboembolism [facility] Start: 09-07-2024 Catheterization of vein [facility] Start: 09-07-2024 Inhalation therapy procedure [facility] Start: 09-07-2024 Insertion of catheter into peripheral vein [facility] Start: 09-07-2024 Measuring intake and output [facility] Start: 09-07-2024 Providing care according to standard [facility] Start: 09-07-2024 Provision of activity privileges [facility] Start: 09-07-2024 [facility] Start: 09-07-2024 Admission procedure [facility] Start: 09-07-2024 Oxygen therapy [facility] Start: 09-07-2024 [facility] Start: 09-07-2024 Continuous positive airway pressure ventilation treatment [facility] Start: 09-07-2024 Patient referral to dietitian [facility] Start: 07-30-2024 Advance Directive Discussion Advance Directive Discussion [facility] Start: 07-01-2024 End: 07-01-2024 Patient encounter procedure 07/01/2024 9:00 AM EST Office Visit Family [facility] [address] [place] [address] Radha Durbin PA-C [address] [place] [address] 6 month follow up [facility] Comment on above: 6 month follow up Start: 03-30-2024 Covid-19 Vaccine () Covid-19 Vaccine () [facility] Start: 03-30-2024 Covid-19 Vaccine ( season) Covid-19 Vaccine () [facility] Start: 03-30-2024 Influenza vaccination Influenza Vaccine (#1) [place] Gina morgan Start: 03-27-2024 End: 03-27-2024 Patient encounter procedure 03/27/2024 8:00 AM EDT Office Visit [facility] [address] [place] [address] Brigitte Segal APRN.STRATEGIC DEVELOPMENT MANAGER [address] [place] [address] 1 month abdominal pain f/u [facility] [place] Comment on above: 1 month abdominal pain f/u Start: 02-25-2024 End: 05-26-2024 Amylase [Enzymatic activity/volume] in Serum or Plasma [facility] Comment on above: Expected: 02/25/2024, Expires: 4 Start: 02-25-2024 End: 05-26-2024 CBC W Auto Differential panel - Blood [facility] Comment on above: Expected: 02/25/2024, Expires: Start: 02-25-2024 End: 05-26-2024 Comprehensive metabolic 2000 panel - Serum or Plasma [facility] Comment on above: Expected: 02/25/2024, Expires: 4 Start: 02-25-2024 End: 05-26-2024 Helicobacter pylori IgG Ab [Presence] in Serum or Plasma by Immunoassay [facility] Work Phone: Comment on above: Expected: 02/25/2024, Expires: 4 Start: 02-25-2024 End: 05-26-2024 Lipase [Enzymatic activity/volume] in Serum or Plasma [facility] Comment on above: Expected: 02/25/2024, Expires: 4 Start: 02-09-2024 COVID-19 VACCINE (4 - Pfizer series) COVID-19 VACCINE (4 - Pfizer series) [facility] Comment on above: Postponed from 07/13/2021 (Declined at t his time) Start: 02-09-2024 SHINGRIX VACCINE (1 of 2) SHINGRIX VACCINE (1 of 2) [facility] Comment on above: Postponed from 11/04/1987 (Declined at t his time) Start: 12-25-2023 End: 12-25-2023 Patient encounter procedure 12/25/2023 9:00 AM EDT Office Visit [facility] [place] [address] [place], [place] [phone] Radha Durbin PA-C [address] [place] [address] 3 month follow up [facility] Comment on above: 3 month follow up Start: 12-24-2023 End: 03-24-2024 CBC W Auto Differential panel - Blood COMPLETE BLOOD COUNT AND DIFFERENTIAL Lab Routine 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 Essential hypertension, benign Hyperlipidemia LDL goal <100 Gastroesophageal reflux disease, unspecified whether esophagitis present Anxiety state Expected: 12/24/2023, Expires: 03/24/2024 [facility] Work Phone: Comment on above: Expected: 12/24/2023, Expires: Start: 12-24-2023 End: 03-24-2024 Comprehensive metabolic 2000 panel - Serum or Plasma COMPREHENSIVE METABOLIC PANEL Lab Routine 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 Essential hypertension, benign Hyperbilirubinemia Gastroesophageal reflux disease, unspecified whether esophagitis present Anxiety state Expected: 12/24/2023, Expires: 03/24/2024 [facility] Comment on above: Expected: 12/24/2023, Expires: Start: 12-24-2023 End: 03-24-2024 Lipid 1996 panel - Serum or Plasma LIPID PANEL BASIC Lab Routine 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 Atherosclerosis of aorta (HCC) Hyperlipidemia LDL goal <100 Expected: 12/24/2023, Expires: 03/24/2024 [facility] Comment on above: Expected: 12/24/2023, Expires: Start: 12-24-2023 End: 08-26-2024 Magnesium [Mass/volume] in Serum or Plasma MAGNESIUM Lab Routine 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 Current use of proton pump inhibitor Expected: 12/24/2023, Expires: 03/24/2024 [facility] Comment on above: Expected: 12/24/2023, Expires: Start: 11-30-2023 Hepatitis B surface antibody level LDL CHOLESTEROL [facility] Start: 08-31-2023 Covid-19 Vaccine () Covid-19 Vaccine () [facility] Start: 08-04-2023 Patient discharge [facility] Start: 08-04-2023 [facility] Start: 08-03-2023 Physiotherapy of chest [facility] Start: 08-01-2023 Elevation of head of bed [facility] Start: 08-01-2023 Patient education [facility] Start: 08-01-2023 [facility] Start: 08-01-2023 Following clinical pathway protocol [facility] Start: 08-01-2023 Oxygen therapy [facility] Start: 08-01-2023 Admission procedure [facility] Start: 08-01-2023 Provision of activity privileges [facility] Start: 08-01-2023 Assessment of risk of venous thromboembolism [facility] Start: 08-01-2023 Insertion of catheter into peripheral vein [facility] Start: 08-01-2023 Measuring intake and output [facility] Start: 08-01-2023 Providing care according to standard [facility] Start: 08-01-2023 End: 08-01-2023 Referral to service [facility] Start: 08-01-2023 [facility] Start: 08-01-2023 Hospital admission, emergency, from emergency room, medical nature [facility] Start: 08-01-2023 Inhalation therapy procedure [facility] Start: 07-30-2023 Advance Directive Discussion Advance Directive Discussion [facility] Start: 07-30-2023 Behavioral Health Screening Behavioral Health Screening [facility] Start: 07-30-2023 Depression Assessment Depression Assessment [facility] Start: 07-29-2023 DEPRESSION ASSESSMENT DEPRESSION ASSESSMENT [facility] Comment on above: Postponed from 07/30/2022 (Declined at t his time) Start: 03-30-2023 Influenza vaccination [facility] Start: 12-24-2022 Hepatitis B surface antibody level LDL CHOLESTEROL [facility] Start: 12-19-2022 SHINGRIX VACCINE (1 of 2) SHINGRIX VACCINE (1 of 2) [facility] Comment on above: Postponed from 11/04/1987 (Insurance Cov erage) Start: 11-27-2022 End: 01-27-2023 CBC panel - Blood by Automated count CBC Lab Routine S/P primary angioplasty with coronary stent Expected: 11/27/2022, Expires: 01/27/2023 [facility] Work Phone: Comment on above: Expected: 11/27/2022, Expires: 3 Start: 11-27-2022 End: 01-27-2023 Comprehensive metabolic 2000 panel - Serum or Plasma COMP METABOLIC PANEL Lab Routine S/P primary angioplasty with coronary stent Expected: 11/27/2022, Expires: 01/27/2023 [facility] Work Phone: Comment on above: Expected: 11/27/2022, Expires: 3 Start: 11-27-2022 End: 01-27-2023 Lipid 1996 panel - Serum or Plasma LIPID PANEL BASIC Lab Routine S/P primary angioplasty with coronary stent Expected: 11/27/2022, Expires: 01/27/2023 [facility] Work Phone: Comment on above: Expected: 11/27/2022, Expires: 3 Start: 11-27-2022 End: 01-27-2023 Prostate specific Ag [Mass/volume] in Serum or Plasma PSA/PROSTSPECAG DIAG Lab Routine Elevated PSA Expected: 11/27/2022, Expires: 01/27/2023 [facility] Work Phone: Comment on above: Expected: 11/27/2022, Expires: 3 Start: 07-30-2022 ADVANCE DIRECTIVE DISCUSSION ADVANCE DIRECTIVE DISCUSSION [facility] Start: 07-30-2022 DEPRESSION ASSESSMENT DEPRESSION ASSESSMENT [facility] Start: 03-30-2022 Influenza vaccination INFLUENZA (#1) [facility] Start: 02-08-2022 Patient referral [facility] Work Phone: Start: 09-18-2021 COVID-19 VACCINE (4 - Booster for Pfizer series) COVID-19 VACCINE (4 - Booster for Pfizer series) [facility] Start: 07-30-2021 DEPRESSION ASSESSMENT DEPRESSION ASSESSMENT [facility] Start: 07-13-2021 COVID-19 VACCINE (4 - Booster for Pfizer series) COVID-19 VACCINE (4 - Booster for Pfizer series) [facility] Start: 05-31-2017 End: 05-31-2017 Appointment Appointment [facility] Work Phone: Start: 05-22-2017 End: 05-22-2017 Appointment Appointment [facility] Work Phone: Start: 05-08-2017 End: 05-08-2017 Appointment Appointment [facility] Work Phone: Start: 05-08-2017 End: 05-08-2017 Arterial exam Arterial exam [facility] [employer] Work Phone: Start: 05-08-2017 End: 05-08-2017 N-invas physiologic std lxtr art compl bi PVR with exercise [facility] Work Phone: Start: 2012 RSV Vaccine (1 - 1-dose 75+ series) RSV Vaccine (1 - 1-dose 75+ series) [facility] Start: 1997 RSV Vaccine (1 - 1-dose 60+ series) RSV Vaccine (1 - 1-dose 60+ series) [facility] Start: 11-04-1987 SHINGRIX VACCINE (1 of 2) SHINGRIX VACCINE (1 of 2) [facility] Start: 11-04-1955 Depression Screening Depression Screening [facility] Alanine aminotransfe rase [Enzymatic activity/volume] in Serum or Plasma [facility] Albumin [Mass/volume ] in Serum or Plasma [facility] Alkaline phosphatase [Enzymatic activity/volume] in Serum or Plasma [facility] Anion gap in Serum o r Plasma [facility] Bilirubin, total measurement [facility] BUN/Creatinine ratio [facility] Calcium [Mass/volume ] in Serum or Plasma [facility] Carbon dioxide, tota l [Moles/volume] in Central venous blood [facility] Cholesterol [Mass/vo lume] in Serum or Plasma [facility] Cholesterol in HDL [Mass/volume] in Serum or Plasma [facility] Creatinine [Mass/vol ume] in Serum or Plasma [facility] Cyclic citrullinated peptide IgG Ab [Units/volume] in Serum or Plasma [facility] Cytoplasmic ANCA Screen [facility] Erythrocyte mean corpuscular volume determination [facility] Glucose [Mass/volume ] in Serum or Plasma [facility] Hematocrit [Volume Fraction] of Blood [facility] Hemoglobin [Mass/vol ume] in Blood [facility] Hemoglobin A1c/Hemoglobin.total in Blood [facility] Leukocytes [#/volume ] in Blood [facility] Low density lipoprot ein cholesterol measurement [facility] Mean corpuscular hemoglobin concentration determination [facility] Mean corpuscular hemoglobin determination [facility] Measurement of renal function [facility] Measurement of respiratory function [facility] Neutrophil count [facility] Neutrophil percent differential count [facility] Patient Education ED Epistaxis (Adult) [facility] Work Phone: Patient referral [facility] Work Phone: Platelets [#/volume] in Blood [facility] Potassium measurement [facility] Red blood cell count [facility] Red cell distributio n width determination [facility] Rheumatoid factor [Presence] in Serum [facility] Serum chloride measurement [facility] Sodium measurement [facility] Total cholesterol:HD L ratio measurement [facility] Total protein measurement [facility] Triglycerides measurement [facility] Troponin T.cardiac [Mass/volume] in Serum or Plasma by High sensitivity method [facility] Urea nitrogen [Mass/volume] in Serum or Plasma [facility] VLDL cholesterol measurement [facility] Immunizations Immunization Date Immunization Notes Care Provider Mendoza lee 04-30-2023 COVID-19 vaccine, ag e 12+ yr, season ([employer]) NANDA Durbin PA-C Work Phone: [facility] 04-16-2023 influenza, high dose seasonal, preservative-free NA Durbin PA-C Work Phone: [facility] 04-16-2023 influenza virus vacc ine, unspecified formulation Brigitte Segal APRN.STRATEGIC DEVELOPMENT MANAGER Work Phone: [facility] 05-16-2022 influenza (HD-IIV4) vaccine, age 65+ yr, high dose, quadrivalent, PF (FLUZONE HIGH-DOSE) Brigitte Segal APRN.STRATEGIC DEVELOPMENT MANAGER Work Phone: [facility] 05-18-2021 COVID-19 vaccine, ag e 12+ yr (PFIZER-BIONTECH - PURPLE TOP) NA Durbin PA-C Work Phone: [facility] 05-18-2021 influenza (HD-IIV4) vaccine, age 65+ yr, high dose, quadrivalent, PF (FLUZONE HIGH-DOSE) NA Durbin PA-C Work Phone: [facility] 05-18-2021 influenza, high dose seasonal, preservative-free NA Durbin PA-C Work Phone: [facility] 11-01-2020 COVID-19 vaccine, ag e 12+ yr (PFIZER-BIONTECH - PURPLE TOP) NA Durbin PA-C Work Phone: [facility] 10-08-2020 COVID-19 vaccine, ag e 12+ yr (PFIZER-BIONTECH - PURPLE TOP) NA Durbin PA-C Work Phone: [facility] 04-26-2020 influenza, high-dose , quadrivalent vaccine (FLUZONE HIGH DOSE QUADRIVALENT) NA Durbin PA-C Work Phone: [facility] 04-13-[address] Brian Mackenzie III Work Phone: [facility] 04-24-2018 influenza, high dose seasonal, preservative-free NA Durbin PA-C Work Phone: [facility] 05-14-2017 influenza, high dose seasonal, preservative-free NA Durbin PA-C Work Phone: [facility] 05-10-2016 pneumococcal conjuga te vaccine, 13 valent NANDA Durbin PA-C Work Phone: [facility] 05-10-2016 tetanus toxoid, redu lane diphtheria toxoid, and acellular pertussis vaccine, adsorbed NA Ramakrishna BIRD Work Phone: [facility] 04-29-[address] Brian Mackenzie III Work Phone: [facility] 03-27-2008 pneumococcal polysaccharide vaccine, 23 valent NANDA Durbin PA-C Work Phone: [facility] Work Phone: Payers Date Payer Category Payer Self-pay [id number] 2017 Medicare ([employer]) PRIMETIM E [id number] 2017 Unknown PRIMETIME PRIMET PAL[place]O O POS [id number] 2017-Present [phone] [place] [id number] [facility] [id number] 2017 Unknown PRIMETIME PRIMET [place] O POS [id number] 2017-Present [phone] [place] [id number] [facility] [id number] 2009 Unknown [id number] Unknown [id number] Unknown [id number]. 2.462 Unknown [id number]. 2.462 Unknown [id number]. 2.462 Unknown [id number] [id number]. 2.462 Unknown [id number] [id number]. 2.462 Unknown [id number]. 2.462 Unknown [id number] [id number]. 2.462 Unknown [id number] [id number]. 2.462 Unknown [id number] [id number]. 2.462 Unknown [id number] [id number]. 2.462 Unknown [id number] [id number]. 2.462 Unknown [id number] [id number]. 2.462 Unknown [id number] [id number]. 2.462 Unknown [id number] [id number]. 2.462 Unknown [id number]. 2.462 Social History Date Type Detail Facility Start: 07-11-2017 End: 02-08-2025 Tobacco smoking status [facility] Ex-smoker [facility] Work Phone: Start: 12-19-2021 End: 09-19-2024 Alcohol intake Current drinker of alcohol (finding) [facility] Start: 1935 Sex Assigned At Not on file [facility] Start: 12-13-2021 End: 12-23-2021 Exposure to SARS-CoV-2 (event) Not sure [facility] Start: 02-08-2022 End: 08-01-2023 Tobacco smoking status NHIS Unknown if ever smoked [facility] Start: 08-26-2020 Occasional [facility] Start: 08-26-2020 None [facility] Start: 08-26-2020 Spouse/ Signif icant Other [facility] Start: 08-26-2020 Non-smoker [facility] Start: 1935 Sex Assigned At Male W [facility] History of tobacco use Current smoker [facility] Start: 07-11-2017 End: 11-27-2022 Tobacco use and exposure Smokeless tobacco non-user [facility] Start: 11-27-2022 Tobacco Comment quit 1999 [facility] Start: 12-22-2022 End: 02-08-2023 History of Social function [facility] Start: 12-22-2022 End: 02-08-2023 Tobacco use panel [facility] Adult Depression Screening Assessment 0 [facility] Goals Date Patient Goal Desired Activity /State Functional Status Date Assessment Result Facility 02-08-2025 Functional status Activity Abili ty With Assist of 1 [facility] Work Phone: 09-15-2024 Functional status Chair [facility] Work Phone: 08-04-2023 Functional status Ambulates [facility] Work Phone: 09-21-2017 Are you deaf, or do you have serious difficulty hearing No 09/21/2017 1:31 PM Brian Whitman III, MD No [facility] 09-21-2017 Are you blind, or do you have serious difficulty seeing, even when wearing glasses No 09/21/2017 1:31 PM Brian Whitman III, MD No [facility] 09-21-2017 Do you have serious difficulty walking or climbing stairs No 09/21/2017 1:31 PM Brian Whitman III, MD No [facility] 09-21-2017 Do you have difficul ty dressing or bathing No 09/21/2017 1:31 PM Brian Whitman III, MD No [facility] 09-21-2017 Because of a physica l, mental, or emotional condition, do you have difficulty doing errands alone such as visiting a physician's office or shopping No 09/21/2017 1:31 PM Brian Whitman III, MD No [facility] Mental Status Date Assessment Result Facility 02-08-2025 Cognitive function Voice/Name [facility] Work Phone: 09-15-2024 Cognitive function Voice/Name [facility] Work Phone: 08-03-2023 Cognitive function Voice/Name [facility] Work Phone: 08-01-2023 Cognitive function Level Of Cons ciousness Awake;Alert;Appropriate;Fol lows Commands [facility] Work Phone: 09-21-2017 Because of a physica l, mental, or emotional condition, do you have serious difficulty concentrating, remembering, or making decisions No 09/21/2017 1:31 PM Brian Whitman III, MD [facility] Clinical Notes 08-30-2017 to 02-08-2025 Note Date & Type Note Facility 02-08-2025 History and physical note Note Date/Time February 08, 2025 6:57pm [facility] Medical Records Department [address] [place] [address] H&P Exam - Hospitalist 02/08/25 1845 MR#: [id number] Acct: [id number] Name: CLARK LYLES Rep #:[id number] : 1935 89 From: Janice Sanford MD PCP: Brigitte Segal, PAINTER TOUCH UP Status:REG ER Location: ED HPI - General [...] HLD,Former tobacco use who presents to the [facility] ED on 02/10/2025 with history of last [...] was deemed not a candidate for tenecteplase. [facility] Medical History Chronic hypoxic respiratory failure, on home oxygen therapy Pulmonary hypertension COPD (chronic obstructive pulmonary disease) COVID-19 virus detected (08/23/20) Anxiety and depression Chronic anemia Pneumonia due to COVID-19 virus GI bleed (12/2019) Atherosclerosis of coronary artery of algaaciq heart without angina pectoris Peripheral vascular occlusive [...] HLD,Former tobacco use who presents to the [facility] ED on 02/10/2025 with history of last [...] 16 minutes. Charges/Coding Visit Charges Inpatient E&M: 51836 Init Hosp L3 Procedures Hospitalists Procedures: [address] Advncd Care Plan 30 Min 02/08/251848 <Electronically [...] Segal; Dr. Janice Sanford MD ~* Signed [facility] Work Phone: 1(810) 647-508407-13-2025 History and physical note [facility] Medical Records Department [address] [place] [address] H&P Exam - Hospitalist 02/08/251844 MR#: [id number] Acct: [id number] Name: CLARK LYLES Rep #:[id number] : 1935 89 From: Janice Sanford MD PCP: Brigitte Segal, PAINTER TOUCH UP Status:REG ER Location: ED HPI - General [...] HLD,Former tobacco use who presents to the [facility] ED on 02/10/2025 with history of last [...] was deemed not a candidate for tenecteplase. [facility] Medical History Chronic hypoxic respiratory failure, on home oxygen therapy Pulmonary hypertension COPD (chronic obstructive pulmonary disease) COVID-19 virus detected (08/23/20) Anxiety and depression Chronic anemia Pneumonia due to COVID-19 virus GI bleed (12/2019) Atherosclerosis of coronary artery of algaaciq heart without angina pectoris Peripheral vascular occlusive [...] HLD,Former tobacco use who presents to the [facility] ED on 02/10/2025 with history of last [...] 16 minutes. Charges/Coding Visit Charges Inpatient E&M: 86174 Init Hosp L3 Procedures Hospitalists Procedures: 09303 Advncd Care Plan 30 Min 02/08/25 184 [...] Segal; Dr. Janice Sanford MD ~* Signed [facility]04-04-2025 Telephone encounter Note* Telephone Encounter - Jaqueline Andre RN - 10/31/2024 3:29 PM EDT Palliative Medicine Referral Assessment Referral Accepted: No, Reason for Denial: Chart reviewed, pal med order meant for [facility] in [place]. Jaqueline Andre RN October 31, 2024 [facility]04-04-2025 Miscellaneous Notes* Telephone Encounter - Jaqueline Andre RN - 10/31/2024 3:29 PM EDT Palliative Medicine Referral Assessment Referral Accepted: No, Reason for Denial: Chart reviewed, pal med order meant for [facility] in [place]. Jaqueline Andre RN October 31, 2024 documented in this encounterUc [facility] Center03-31-2025 Telephone encounter Note * Telephone Encounter - [...] on her brothers phone number as well. [facility]03-31-2025 Miscellaneous Notes* Telephone Encounter - Shira Mcgill [...] - 10/27/2024 3:47 PM EDT Rohan with [facility] calls to report family is requesting order for palliative care. Fax order to [facility] in [place]. Rohan also reports he saw pt today and is extending nurse to once a week x 2 weeks. Pt will then be discharged from Nursing. Rohan reports that Pulmonary gave new dx for pt of COPD and pulmonary htn. Amita Kim LPN documented in this encounterUc Medical Center03-31-2025 Telephone encounter Note * Telephone Encounter - [...] into accepting palliative care. Shira Mcgill RN [facility]03-31-2025 Telephone encounter Note* Telephone Encounter - Brigitte Segal APRN.CNP - 10/27/2024 4:50 PM EDT Please ask patient if he wants a palliative care consult? Palliative care is not end-of-life care but symptom management and chronic disease. Consult placed if patient wishes to be referred. [facility]03-31-2025 Telephone encounter Note* Telephone Encounter - Amita Kim LPN - 10/27/2024 3:47 PM EDT Rohan with [facility] calls to report family is requesting order for palliative care. Fax order to [facility] in [place]. Rohan also reports he saw pt today and is extending nurse to once a week x 2 weeks. Pt will then be discharged from Nursing. Rohan reports that Pulmonary gave new dx for pt of COPD and pulmonary htn. Amita Kim LPN [facility]03-20-2025 Evaluation note* Diagnosis Onset Date Resolution Status Admit Date COPD (chronic obstructive pulmonary disease) inactive October 16 12:57pm Pulmonary hypertension inactive [facility] 2024 12:57pm CVA (cerebral vascular accident) acute February 08, 2025 7:47pm [facility] Work Phone: [phone]) 647-393403-19-2025 Telephone encounter Note* Telephone Encounter - Radha Green, ZACKARY - 10/15/2024 3:02 PM EDT Paulino- nurse- [facility]- reports he did patient eval today and will extend HH visits to 1 x week for 2 weeks. Pt is still on 4 L O2 after pneumonia. Pt will see pulm tomorrow. [facility]03-19-2025 Miscellaneous Notes* Telephone Encounter - Radha Green, ZACKARY - 10/15/2024 3:02 PM EDT Paulino- nurse- [facility]- reports he did patient eval today and will extend [facility] visits to 1 x week for 2 weeks. Pt is still on 4 L O2 after pneumonia. Pt will see pulm tomorrow. documented in this encounterUc Medical Center03-07-2025 Telephone encounter Note * Telephone Encounter - Shirley Rivera MA - 10/03/2024 3:55 PM EST Detailed message left on secure line for Jamie [facility] Shirley Rivera MA October 03, 2024 3:56 PM [facility]03-07-2025 Miscellaneous Notes* Telephone Encounter - Shirley Rivera MA - 10/03/2024 3:55 PM EST Detailed message left on secure line for Jamie [facility] Shirley Rivera MA October 03, 2024 3:56 PM * Telephone Encounter - Brigitte Segal APRN.CNP - 10/03/2024 2:59 PM EST Yes. Please increase O2 to 4l. Thank you for the recert. * Telephone Encounter - Mary Balderas RN - 10/03/2024 2:49 PM EST Jamie with [facility] is calling due to he saw [...] called back with information. documented in this encounterUc Medical Center03-07-2025 Telephone encounter Note * Telephone Encounter - Brigitte Segal APRN.CNP - 10/03/2024 2:59 PM EST Yes. Please increase O2 to 4l. Thank you for the recert. [facility]03-07-2025 Telephone encounter Note* Telephone Encounter - Mary Balderas RN - 10/03/2024 2:49 PM EST Jamie with [facility] is calling due to he saw [...] advise, Jamie needs called back with information. [facility]02-21-2025 Telephone encounter Note* Telephone Encounter - Brigitte Segal APRN.CNP - 09/19/2024 3:33 PM EST Sounds good. Agree. [facility]02-21-2025 Miscellaneous Notes* Telephone Encounter - Brigitte Segal APRN.CNP - 09/19/2024 3:33 PM EST Sounds good. Agree. * Telephone Encounter - Whit Sheridan RN - 09/19/2024 2:20 PM EST Rohna calling with [facility] Physical Therapy with plan of care for patient. Pt will be seen 1x per week for 4 weeks for functional mobility training. No call back needed if provider agreeable. Whit Sheridan RN documented in this encounterUc Medical Center02-21-2025 Instructions* Patient Instructions* Brigitte Segal APRN.CNP - 09/19/2024 3:24 PM EST 1) Mirtazapine 7.5 mg at bedtime for sleep 2) Follow up in 6 months documented in this encounterUc Medical Center02-21-2025 NoteHNO ID: [id number] Author: BRIGITTE SEGAL APRN.CNP Service: ? Author [...] lipoma performed by Dr. Robe Mackenzie at [facility] REVSC OPN/PRQ FEM/POP W/STNT/ANGIOP VSL 03-18-14 [...] content not included)...[facility]-21-2025 History of Present illness Narrative* Brigitte Segal APRN.STRATEGIC DEVELOPMENT MANAGER - 09/19/2024 3:08 PM EST This is [...] lipoma performed by Dr. Robe Mackenzie at [facility] REVSC OPN/PRQ FEM/POP W/STNT/ANGIOP SM VSL [...] no tremor 7. 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- ICD9: 414.01, ICD10: [...] improvement. Brigitte Segal APRN.JANET documented in this encounterUc Medical Center02-21-2025 Telephone encounter Note * Telephone Encounter - Whit Sheridan RN - 09/19/2024 2:20 PM EST Rohan calling with [facility] Physical Therapy with plan of care for patient. Pt will be seen 1x per week for 4 weeks for functional mobility training. No call back needed if provider agreeable. Whit Sheridan RN [facility]02-20-2025 Telephone encounter Note* Telephone Encounter - Shirley Rivera MA - 09/18/2024 10:47 AM EST HHN was not at home, just granddaughter. She did report no cough. Pt has appointment with PCP tomorrow. [facility]02-20-2025 Miscellaneous Notes* Telephone Encounter - Shirley Rivera [...] - 09/18/2024 9:50 AM EST Haley from [facility] calls and reports that granddaughter had [...] provider tomorrow 09/19/2024. Please Contact Haley turk [phone]. Tracy Cedillo RN * Telephone Encounter - [...] 09/17/2024 12:52 PM EST Hellen calling from [facility] to report plan of care for patient and senior care will visit patient 1 time a week for 1 week and 2 times a week for 2 weeks. Alf will work with patient on wound care (patient has skin tear to right elbow) and management of O2 levels. Hellen had no orders for wound care. Hellen cleaned wound and put on Vaseline gauze and band aid. Hellen also notes that patient is on Oxygen and thought that he was only going to be on oxygen for a week. Patient does not see chemical research engineer for a month. Hellen did not know if provider wanted to address Oxygen use. Patient is scheduled to see PCP 09/19/2024. No call back needed unless there are questions. Tracy Cedillo RN documented in this encounterUc Medical Center02-20-2025 Telephone encounter Note * Telephone Encounter - Brigitte Segal APRN.CNP - 09/18/2024 10:41 AM EST Absolutely keep at 3L. Any report on lung sounds? [facility]02-20-2025 Telephone encounter Note* Telephone Encounter - Tracy Cedillo RN - 09/18/2024 9:50 AM EST Haley from [facility] calls and reports that granddaughter had [...] provider tomorrow 09/19/2024. Please Contact Haley back [phone]. Tracy Cedillo RN [facility]02-20-2025 Telephone encounter Note* Telephone Encounter - Brigitte Segal APRN.CNP - 09/18/2024 8:08 AM EST Patient will need to stay on oxygen until he follows up with pulmonary. I have not seen him since February 2024 therefore I am not really able to shed any light on his oxygen use. Not common to use oxygen for only a week. [facility]02-19-2025 Telephone encounter Note* Telephone Encounter - Tracy Cedillo RN - 09/17/2024 12:52 PM EST Hellen calling from [facility] to report plan of care for patient and senior care will visit patient 1 time a week for 1 week and 2 times a week for 2 weeks. Alf will work with patient on wound care (patient has skin tear to right elbow) and management of O2 levels. Hellen had no orders for wound care. Hellen cleaned wound and put on Vaseline gauze and band aid. Hellen also notes that patient is on Oxygen and thought that he was only going to be on oxygen for a week. Patient does not see chemical research engineer for a month. Hellen did not know if provider wanted to address Oxygen use. Patient is scheduled to see PCP 09/19/2024. No call back needed unless there are questions. Tracy Cedillo RN [facility]02-17-2025 Telephone encounter Note* Telephone Encounter [...] 5 mg daily to 10 mg daily [facility]02-17-2025 Miscellaneous Notes* Telephone Encounter - [...] - 09/15/2024 3:30 PM EST Rochelle from [facility] calls and states that patient is being discharged from [facility] PCU on 09/05/2024 with the diagnosis of hypoxia and acute respiratory failure. Rochelle asking if provider willing to follow patient with orders for senior care, physical therapy, occupational therapy and social work. If agreeable please give Rochelle a call back . Thank you, Tracy Cedillo RN documented in this encounterUc Medical Center02-17-2025 Telephone encounter Note * Telephone Encounter - Brigitte Segal APRN.CNP - 09/15/2024 4:41 PM EST Yes. Of course [facility]02-17-2025 Telephone encounter Note* Telephone Encounter - Tracy Cedlilo RN - 09/15/2024 3:30 PM EST Rochelle from [facility] calls and states that patient is being discharged from [facility] PCU on 09/05/2024 with the diagnosis of hypoxia and acute respiratory failure. Rochelle asking if provider willing to follow patient with orders for senior care, physical therapy, occupational therapy and social work. If agreeable please give Rochelle a call back . Thank you, Tracy Cedillo RN [facility]02-17-2025 [facility] Medical Records Department [address] [place] [id number] Discharge Summary 09/15/24 0952 MR#: [id number] Acct: [id number] Name: CLARK LYLES Rep #: [id number] : 1935 88 From: John Soliz MD PCP: MARIANA Humphreys Status:ADM IN [id number] Prov[facility] Date of Admission: 09/07/24 Date of [...] 03/17/14 multivitamin 1 ea PO DAILY [facility] 05/16/17 tamsulosin 0.4 mg capsule 0.4 mg [...] Palpation of Joints or (more content not included)...[facility]02-11-2025 Telephone encounter Note* Telephone Encounter - Brigitte Segal APRN.JANET - 09/09/2024 10:00 AM EST Patient was admitted to [facility] on September 07 to 2024 for altered [...] is a DNR CC with no intubation. [facility]02-11-2025 Miscellaneous Notes* Telephone Encounter - Brigitte Segal APRN.CNP - 09/09/2024 10:00 AM EST Patient was admitted to [facility] on September 07 to 2024 for altered [...] CC with no intubation. documented in this encounterUc Medical Center02-09-2025 Evaluation note* Diagnosis Onset Date Resolution Status Admit Date Hypoxia inactive September 07, 2024 12:42pm Pulmonary hypertension acute [facility] 2024 12:57pm COPD (chronic obstructive pulmonary disease) chronic October 16, 025 12:57pm [facility] Work Phone: 1(199) 652-870908-29-2024 Instructions* Patient Instructions* Brigitte Segal APRN.CNP - 03/27/2024 8:18 AM EDT 1) eliminate omeprazole but continue pantoprazole 2) discontinue trazodone, replaced with Tylenol PM 3) follow up in as scheduled documented in this encounterUc Medical Center08-29-2024 NoteHNO ID: [id number] Author: BRIGITTE SEGAL APRN.CNP Service: ? Author [...] lipoma performed by Dr. Robe Mackenzie at [facility] 03-18-14: REVSC OPN/PRQ FEM/POP W/STNT/ANGIOP SM [...] content not included)...[facility] History of Present illness Narrative* Brigitte Segal APRN.STRATEGIC DEVELOPMENT MANAGER - 03/27/2024 8:03 AM EDT This is [...] lipoma performed by Dr. Robe Mackenzie at [facility] 03-18-14: REVSC OPN/PRQ FEM/POP W/STNT/ANGIOP SM [...] improvement. Brigitte Segal APRN.CNP documented in this encounterUc Medical Center08-15-2024 Telephone encounter Note * Telephone [...] Velez LPN March 13, 2024 10:13 AM [facility]08-15-2024 Miscellaneous Notes* Telephone Encounter - [...] 13, 2024 10:13 AM documented in this encounterUc Medical Center07-30-2024 Telephone encounter Note * Telephone Encounter - Shirley Rivera MA - 02/26/2024 8:28 AM EDT Patient was made aware of the results. Patient verbalizes understanding. Shirley Rivera Ma [facility]07-30-2024 Miscellaneous Notes* Telephone Encounter - [...] does on the pantoprazole. documented in this encounterUc Medical Center07-30-2024 Telephone encounter Note * Telephone Encounter - Brigitte Segal APRN.CNP - 02/26/2024 8:00 AM EDT Patient does not have MyChart. Please let him know that he was negative for H. pylori the bacteria that causes ulcers. Blood counts are okay, kidney function liver function, and pancreas are all normal. Lets see how he does on the pantoprazole. [facility]07-29-2024 Instructions* Patient Instructions* Brigitte Segal APRN.CNP - 02/25/2024 8:50 AM EDT 1) Check labs 2) Flagyl 500 mg 3 x day 3) Cipro 500 mg 2 x day 4) Start pantoprazole 40 mg daily 5) Follow up in 1 month documented in this encounterUc Medical Center07-29-2024 NoteHNO ID: [id number] Author: BRIGITTE SEGAL APRN.CNP Service: ? Author [...] lipoma performed by Dr. Robe Mackenzie at [facility] REVSC OPN/PRQ FEM/POP W/STNT/ANGIOP SM VSL [...] - Recheck in 1 month Brigitte Segal APRN.[facility]07-29-2024 History of Present illness Narrative* Brigitte Segal APRN.[facility] - 02/25/2024 8:35 AM EDT This [...] lipoma performed by Dr. Robe Mackenzie at [facility] REVSC OPN/PRQ FEM/POP W/STNT/ANGIOP SM VSL [...] month Brigitte Segal APRN.JANET documented in this encounterUc Medical Center06-07-2024 Telephone encounter Note * Telephone Encounter - Shirley Rivera MA - 01/04/2024 3:40 PM EDT Letter mailed to patient [facility]06-07-2024 Miscellaneous Notes* Telephone Encounter - Shirley Rivera MA - 01/04/2024 3:40 PM EDT Letter mailed to patient * Telephone Encounter - Shirley Rivera MA - 01/01/2024 4:48 PM EDT Attempted to call, no answer * Telephone Encounter - Walter Gomez MD - 12/28/2023 2:27 PM EDT Let him know his labs are stable. documented in this encounterUc Medical Center06-04-2024 Telephone encounter Note * Telephone Encounter - Shirley Rivera MA - 01/01/2024 4:48 PM EDT Attempted to call, no answer [facility]06-03-2024 Telephone encounter Note* Telephone Encounter - Victoria Gleason - 12/31/2023 2:51 PM EDT Patient has been identified by name and date of : Yes, Provider Justin Durbin PA-C Date 12/31/2023 Time 2:54 pm Patient [email or web address] phones for refill(s): Requested Prescriptions Pending Prescriptions [...] 07/01/2024 Please advise. Thank you. Victoria Berkowitz. [facility]-03-2024 Miscellaneous Notes* Telephone Encounter - [...] Thank you. Victoria Berkowitz. documented in this encounterUc Medical Center05-31-2024 Telephone encounter Note * Telephone Encounter - Walter Gomez MD - 12/28/2023 2:27 PM EDT Let him know his labs are stable. [facility] Work Phone: [phone] 693-321405-28-2024 Instructions* Patient Instructions* Radha Durbin PA-C - 12/25/2023 9:46 AM EDT Please schedule as soon as possible [place] [facility] documented in this encounterUc Medical Center05-28-2024 History of Present illness Narrative* Radha Durbin PA-C - 12/25/2023 9:00 AM EDT 88 year old male with c/o here for follow up. 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 08/02/2023 echocardiogram [facility]: LV size WNL, mild concentric LVH, EF [...] to suggest ischemia. 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 [...] Lymph 1.00 - 4.00 k/uL 0.81 (L) Spink% % 9.0 Abs Spink <0.87 k/uL 0.99 (H) Eosin% % 2.6 [...] because he felt bad in the mornings. Busby better after he stopped. Can think of [...] lipoma performed by Dr. Robe Mackenzie at [facility] REVSC OPN/PRQ FEM/POP W/STNT/ANGIOP SM VSL [...] Chronic Blood Loss Coronary Artery Disease Involving Nikolai Coronary Artery of Nikolai Heart S/P Primary Angioplasty With Coronary Stent [...] refill. ASSESSMENT/PLAN: 1. 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 Radha Durbin PA-C documented in this encounterUc Medical Center05-28-2024 NoteHNO ID: [id number] Author: Radha DURBIN PA-C Service: ? Author Type: Physician Excel Developer Type: Progress Notes Filed: 12/26/2023 14:22 Note Text: 88 year old male with c/o here for follow up. 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 08/02/2023 echocardiogram [facility]: LV size WNL, mild concentric LVH, EF [...] to suggest ischemia. 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 [...] Lymph 1.00 - 4.00 k/uL 0.81 (L) Spink% % 9.0 Abs Spink <0.87 k/uL 0.99 (H) Eosin% % 2.6 [...] because he felt bad in the mornings. Busby bett (more content not included)...[facility]05-16-2024 Telephone encounter Note* Telephone Encounter - Kassandra Quispe RN - 12/13/2023 4:55 PM EDT Spoke with patient. Gave permission for sonQuincy to receive medical information. Spoke with Quincy and let him know script was sent. Kassandra Quispe RN [facility]05-16-2024 Miscellaneous Notes* Telephone Encounter - [...] 12/25/2023 Please return call to Quincy venegas [phone] Please advise. Thank you. Danita Staples. documented in this encounterUc Medical Center05-16-2024 Telephone encounter Note * Telephone [...] we are unable to give him information. [facility]05-16-2024 Telephone encounter Note* Telephone Encounter [...] 12/25/2023 Please return call to Quincy venegas [phone] Please advise. Thank you. Danita Staples. [facility]02-27-2024 History of Present illness Narrative* Radha Durbin PA-C - 09/25/2023 9:00 AM EST 87 year old male with c/o here for 3 month follow up Hospital discharge summary Facility: [facility] Date of admission 08/01/2023 Date of discharge 08/04/2023 Discharge diagnoses and Plan 1. Acute hypoxia: Admitted through [facility] emergency department with complaint of progressive shortness [...] in the 80's percentile. Went to [facility] and sent to ER. Placed on [...] Rocephin and Zithromax was continued 08/02/2023 echocardiogram [facility]: LV size WNL, mild concentric LVH, EF [...] dehydration or weakness. 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 [...] Lymph 1.00 - 4.00 k/uL 0.81 (L) Spink% % 9.0 Abs Spink <0.87 k/uL 0.99 (H) Eosin% % 2.6 [...] because he felt bad in the mornings. Busby better after he stopped. 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 Robe Mackenzie at [facility] REVSC OPN/PRQ FEM/POP W/STNT/ANGIOP VSL 03-18-14 [...] Chronic Blood Loss Coronary Artery Disease Involving Nikolai Coronary Artery of Nikolai Heart S/P Primary Angioplasty With Coronary Stent [...] refill. ASSESSMENT/PLAN: 1. 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 S/P primary angioplasty with coronary stent - ICD9: V45.82, ICD10: Z95.5 3. Angina pectoris (HCC) - ICD9: 413.9, ICD10: I20.9 4. Atherosclerosis of aorta (HCC) - ICD9: 440.0, ICD10: I70.0 Stable, no ischemic sx, see [place] cardiology 5. Essential hypertension, benign - ICD9: [...] which included preparing to see the patient, [id number] patient care, completing clinical documentation, obtaining and/or [...] data. Radha Durbin PA-C documented [facility] Discharge summary Author Jerrell Faith [facility] August 04, 2023 12:59pm Note Date/Time August 04, 2023 11 :14am [facility] Medical Records Department [address] [place] [address] Discharge Summary 08/04/23 1114 MR#: [id number] Acct: [id number] Name: CLARK LYLES Rep #:[id number] : 1935 87 From: Jerrell Faith MD PCP: CHRISTINE Brown Status:ADM I N Location: [place] [id number] Providers Date of Admission: 08/01/23 Date [...] 76.4 H, Lymph % (Auto) 8.9 L, Spink % (Auto) 9.4, Eos % (Auto) 4.1, [...] Self Care Charges/Coding Visit Charges Inpatient E&M: 38536 Disch Hosp >30min 08/04/23 1259 <Electronically signed by Jerrell Faith MD> Cosigner Signature (if applicable): CC: Dr. Jerrell Faith MD; CHRISTINE Brown~ Signed [facility] Work Phone: 1(342) 781-359701-06-2024 Progress note Author Jerrell Faith [facility] August 04, 2023 11:09am Note Date/Time August 04, 2023 8: 05am [facility] Medical Records Department [address] [facility] [place] [address] Progress Note - Hospitalist 08/04/23804 MR#: [id number] Acct: [id number] Name: CLARK LYLES Rep #:[id number] : 1935 87 From: Jerrell Faith MD PCP: CHRISTINE Brown Status:ADM I N Location: [place] [address] Reason for Visit Reason for Visit: Diagnoses [...] 76.4 H, Lymph % (Auto) 8.9 L, Spink % (Auto) 9.4, Eos % (Auto) 4.1, [...] 35 Minutes Charges/Coding Visit Charges Inpatient E&M: 24921 Subs Hosp L2 08/04/23 1109 <Electronically signed by Jerrell Faith MD> Cosigner Signature (if applicable): CC: ~ Signed [facility] Work Phone: 1(231) 993-536701-05-2024 Progress note Author Jerrell Faith [facility] August 03, 2023 9:52am Note Date/Time August 03, 2023 8: 06am [facility] Medical Records Department [address] [facility] [place] [address] Progress Note - Hospitalist 08/03/23 08 MR#: [id number] Acct: [id number] Name: CLARK LYLES Rep #:[id number] : 1935 87 From: Jerrell Faith MD PCP: CHRISTINE Brown Status:ADM I N Location: [place] [address] Reason for Visit Reason for Visit: Diagnoses [...] documentation, 50Minutes Charges/Coding Visit Charges Inpatient E&M: 04748 Subs Hosp 08/03/23 0952 <Electronically signed by Jerrell Faith MD> Cosigner Signature (if applicable): CC: ~ Signed [facility] Work Phone: 1(692) 426-364601-04-2024 Progress note Author Jerrell Faith [facility] August 02, 2023 3:17pm Note Date/Time August 02, 2023 10 :55am [facility] Medical Records Department [address] [place] [address] Progress Note - Hospitalist 08/02/23 1055 MR#: [id number] Acct: [id number] Name: CLARK LYLES Rep #:[id number] : 1935 87 From: Jerrell Faith MD PCP: CHRISTINE Brown Status:ADM I N Location: [place] [address] Reason for Visit Reason for Visit: Patient [...] 82.0 H, Lymph % (Auto) 5.7 L, Spink %(Auto) 10.3 H, Eos % (Auto) 0.9, [...] 88.2 H, Lymph % (Auto) 5.4 L, Spink % (Auto) 5.8, Eos % (Auto) 0.0, [...] documentation, 50Minutes Charges/Coding Visit Charges Inpatient E&M: 88833 [facility] Hosp 08/02/23 1517 <Electronically signed by Jerrell Faith MD> Cosigner Signature (if applicable): CC: ~ Signed [facility] Work Phone: 1(214) 744-655901-03-2024 Discharge summary Author Lewis Sutton [facility] August 01, 2023 4:18pm Note Date/Time August 01, 2023 1: 26pm [facility] Medical Records Department [address] [place] [address] Emergency Department Summary 08/01/23 MR#: [id number] Acct: [id number] Name: CLARK LYLES Rep #:[id number] : 1935 87 From: Lewis Sutton MD PCP: CHRISTINE Brown Status:ADM I N Location: [place] [address] HPI History of Present Illness Chief Complaint: [...] he has dyspnea on exertion as well. [facility] Medical History Acute respiratory failure with hypoxia Anxiety Anxiety and depression Atherosclerosis of coronary artery of algaaciq heart without angina pectoris BPH (benign prostatic [...] 82.0 H Lymph % (Auto) 5.7 L Spink % (Auto) 10.3 H Eos % (Auto) [...] 15:00 EST Reading Location ID and State: [address] [place] [address] Tel , Service support , Discharge Plan Dx/Rx/DC Orders Clinical Impression: Hypoxia, Pneumonia, SOB (shortness of breath), Hypokalemia Disposition Disposition: Acute Care Hospital [facility] What to do if you have Problems For any increased pain, shortness of breath, bleeding, nausea or vomiting, chestpain, or any unexpected problems, contact your Primary Care Provider. Call [facility] ([phone]) or report to the closest Emergency Room. Call 911 if necessary. 08/01/23 1618 <Electronically signed by Lewis Sutton MD> Cosigner Signature (if applicable): CC: CHRISTINE Brown ~ Signed [facility] Work Phone: 1(273) 695-529801-03-2024 Discharge summary Author Lewis Sutton [facility] August 01, 2023 4:18pm Note Date/Time August 01, 2023 1: 26pm [facility] Medical Records Department [address] [place] [address] Emergency Department Summary 08/01/23 MR#: [id number] Acct: [id number] Name: CLARK LYLES Rep #:[id number] : 1935 87 From: Lewis Sutton MD PCP: CHRISTINE Brown Status:ADM I N Location: [address] History of Present Illness Chief Complaint: [...] he has dyspnea on exertion as well. [facility] Medical History Acute respiratory failure with hypoxia Anxiety Anxiety and depression Atherosclerosis of coronary artery of algaaciq heart without angina pectoris BPH (benign prostatic [...] Std Deviation 46.8 H RDW Coeff of Jiahn 14.3 Plt Count 175 MPV 11.5 Immature Gran % (Auto) 0.900 Neut % (Auto) 82.0 H Lymph % (Auto) 5.7 L Spink % (Auto) 10.3 H Eos % (Auto) [...] 15:00 EST Reading Location ID and State: [facility] / [place] Tel , Service support , Discharge Plan Dx/Rx/DC Orders Clinical Impression: Hypoxia, Pneumonia, SOB (shortness of breath), Hypokalemia Disposition Disposition: Acute Care Hospital [facility] What to do if you have Problems For any increased pain, shortness of breath, bleeding, nausea or vomiting, chestpain, or any unexpected problems, contact your Primary Care Provider. Call [facility] ([phone]) or report to the closest Emergency Room. Call 911 if necessary. 08/01/23 1618 <Electronically signed by Lewis Sutton MD> Cosigner Signature (if applicable): CC: CHRISTINE Brown ~ Signed [facility] Work Phone: 1(605) 386-756212-12-2023 Miscellaneous Notes* Telephone Encounter - Davina Fajardo - 07/10/2023 9:33 AM EST Patient has been identified by name and date of : Yes Requested Prescriptions Pending Prescriptions Disp Refills tamsulosin (FLOMAX) 0.4 mg 180 capsule 3 Sig: Take 2 capsules by mouth once daily. RX INSTRUCTIONS: Patient aware RX will be sent to [facility] pharmacy. No need to notify patient. Davina Fajardo documented in this encounterUc Medical Center12-04-2023 Miscellaneous Notes* Telephone Encounter - [...] diarrhea. Chaz Vega PA-C documented in this encounterUc Medical Center11-30-2023 History of Present illness Narrative* Radha Durbin PA-C - 06/28/2023 9:00 AM EST 87 year old male with c/o here for 3 month follow up Still having issues with diarrhea, watery to mushy. No pain Moving bowels twice a day, previously once a day. 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 [...] because he felt bad in the mornings. Busby better after he stopped- probably a year [...] lipoma performed by Dr. Robe Mackenzie at [facility] REVSC OPN/PRQ FEM/POP W/STNT/ANGIOP SM VSL [...] Chronic Blood Loss Coronary Artery Disease Involving Nikolai Coronary Artery of Nikolai Heart S/P Primary Angioplasty With Coronary Stent [...] refill. ASSESSMENT/PLAN: 1. 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 S/P primary angioplasty with coronary stent - ICD9: V45.82, ICD10: Z95.5 3. Angina pectoris (HCC) - ICD9: 413.9, ICD10: I20.9 4. Atherosclerosis of aorta ([facility]) - ICD9: 440.0, ICD10: I70.0 5. Essential hypertension, benign - ICD9: 401.1, ICD10: I10 Stable, continue meds. No ischemic. 6. Hyperlipidemia LDL goal <100 - ICD9: 272.4, ICD10: E78.5 - Controlled - Continue current medications - Counseled on healthy diet and regular exercise 7. PAD (peripheral artery disease) ([facility]) - ICD9: 443.9, ICD10: I73.9 Stable, asymptomatic. [...] data. Radha Durbin PA-C documented in this encounterUc Medical Center11-20-2023 Miscellaneous Notes* Telephone Encounter - [...] notify patient. 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 Jair Marvin MD documented in this encounterUc Medical Center10-23-2023 Miscellaneous Notes* Telephone Encounter - [...] Thanks, Chaz Durbin PA-C documented in this encounterUc Medical Center10-14-2023 Miscellaneous Notes* Telephone Encounter - [...] Thanks, Chaz Durbin PA-C documented in this encounterUc Medical Center10-13-2023 Miscellaneous Notes* Telephone Encounter - Radha Durbin PA-C - 05/11/2023 4:54 PM EDT See other TE Gary, Chaz Durbin PA-C * Telephone Encounter - Whit Sheridan RN - 05/11/2023 2:30 PM EDT Pt's daughter Pili asking Chaz Durbin to advise on pt's recent CT scan results, when able. Thank you. documented in this encounterUc Medical Center10-13-2023 History of Present illness Narrative* Krissy Michel, [...] 2023 TIME: 4:07 PM documented in this encounterUc Medical Center07-13-2023 Instructions* Patient Instructions* Radha Durbin PA-C - 02/08/2023 10:02 AM EDT Ice/ moist heat, lineaments, OTC analgesics as needed. Stretching and posture reviewed. See handout on piriformis stretching. documented in this encounterUc Medical Center07-13-2023 History of Present illness Narrative* [...] lipoma performed by Dr. Robe Mackenzie at [facility] REVSC OPN/PRQ FEM/POP W/STNT/ANGIOP SM VSL [...] Chronic Blood Loss Coronary Artery Disease Involving Nikolai Coronary Artery of Nikolai Heart S/P Primary Angioplasty With Coronary Stent [...] or gallop. No lifts, heaves, or rubs. kettle tender over right lumbar paravertebrals, right piriformis. [...] history context and comparison. documented in this encounterUc Medical Center07-05-2023 History of Present illness Narrative* Rebekah Salazar PA-C - 01/31/2023 1:38 PM EDT This note was created using [employer]. Subjective Clark Lyles is a 87 year [...] lipoma performed by Dr. Robe Mackenzie at [facility] REVSC OPN/PRQ FEM/POP W/STNT/ANGIOP SM VSL [...] AP/LAT/L5-S1 Rebekah Salazar PA-C documented in this encounterUc Medical Center07-05-2023 History of Present illness Narrative* [...] 31, 2023 11:04 AM documented in this encounterUc Medical Center06-16-2023 Miscellaneous Notes* Telephone Encounter - [...] you. Юлия Deng LPN documented in this encounterUc Medical Center05-04-2023 Miscellaneous Notes* Telephone Encounter - Whit Sheridan RN - 11/30/2022 10:38 AM EDT Images from the original note were not included. Patient's daughter Pili Payne, notified. ZACKARY Vines PA-C 11/30/2022 9:01 AM EDT Please let him know labs all look good. Thanks, Chaz Durbin PA-C documented in this encounterUc Medical Center05-01-2023 Instructions* Patient Instructions* Radha Durbin [...] Last Reviewed Date 2019-11-20 documented in this encounterUc Medical Center05-01-2023 History of Present illness Narrative* [...] Angina pectoris (hcc) Cardiovascular interval hx: Sees [place] cardiology 02/27/2022 exercise myocardial perfusion stress test [...] to suggest ischemia. 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 [...] current. In past notes: Yes: occurs in [employer], sudden feeling of lightheadedness,pallor, weakness, lasts about 20 minutes. Seemed better when he went outside. Has happened 2 years ago. Father had low sugar. Doesn't eat prior to [employer] and then goes out to [facility] after. Unexplainable fatigue No Leg swelling: No Nausea: No diaphoresis: No Heartburn: No Claudication: No Smoking: No Following Low cholesterol, high fiber diet? Yes If on statin: muscle aches? No If on statin: GI sx or diarrhea? No Additional history does a lot of mowing. 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 Lab review: [...] lipoma performed by Dr. Robe Mackenzie at [facility] REVSC OPN/PRQ FEM/POP W/STNT/ANGIOP SM VSL [...] Chronic Blood Loss Coronary Artery Disease Involving Nikolai Coronary Artery of Nikolai Heart S/P Primary Angioplasty With Coronary Stent [...] TABLET Radha Durbin PA-C documented in this encounterUc Medical Center01-09-2023 Miscellaneous Notes* Telephone Encounter - [...] notify patient. Charity Zhou documented in this encounterUc Medical Center12-09-2022 Miscellaneous Notes* Telephone Encounter - [...] Thank you. Tracy Lambert documented in this encounterUc Medical Center09-12-2022 Miscellaneous Notes* Telephone Encounter - [...] 04/10/2022 9:34 AM EDT Pharmacy verified in [facility] Patient has been identified by name [...] Tamra Radha Baez Pss documented in this encounterUc Medical Center06-13-2022 Miscellaneous Notes* Telephone Encounter - [...] patient. Theresa Barbour Pss documented in this encounterUc Medical Center02-10-2020 Evaluation note* Diagnosis Onset Date Resolution Status Essential (primary) hypertension chronic Hyperlipidemia chronic Peripheral vascular occlusive disease chronic History of coronary artery stent placement September 082019 resolved [facility] Work Phone: 1(668) 130-206602-01-2018 Evaluation note* Diagnosis Onset Date Resolution Status BPH (benign prostatic hyperplasia) acute History of angioplasty of peripheral vessel August, acute Hypokalemia acute Hypoxia acute Pneumonia acute SOB (shortness of breath) ac telida Essential (primary) hypertension chronic History of coronary artery stent placement September 082019 resolved [facility] Work Phone: evaluation note* Diagnosis Gastroesophageal reflux disease, unspecified whether esophagitis present [facility]* Diagnosis Benign prostatic hyperplasia with nocturia documented [facility] this encounter [facility] noteNo assessment information availableWSelect Medical Specialty [facility], [facility] Work Phone: evaluation note* Diagnosis S/P primary angioplasty with coronary stent Postsurgical percutaneous transluminal coronary angioplasty status PAD (peripheral artery disease) (HCC) Peripheral vascular disease, unspecified Hyperlipidemia LDL goal <100 Other and unspecified hyperlipidemia Anxiety state Anxiety state, unspecified Essential hypertension, benign Benign prostatic hyperplasia with nocturia documented in this encounter [facility] note* Diagnosis S/P primary angioplasty with [...] Insomnia, unspecified documented [facility] this encounter [facility]* Diagnosis Gastroesophageal reflux disease, unspecified whether esophagitis present Anxiety state Anxiety state, unspecified Chronic insomnia Insomnia, unspecified documented in this encounter [facility] note* Diagnosis Back pain of lumbar region with sciatica- Primary documented [facility] this encounter [facility]* Diagnosis Piriformis syndrome, left- Primary Somatic dysfunction of left sacroiliac joint documented [facility] this encounter [facility]* Diagnosis Abrasion of anterior right lower leg, initial encounter- Primary [facility] Diagnosis Atherosclerosis of aorta (HCC) Atherosclerosis of aorta [facility]*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 Enamel Cracker Relationship Specialty Start Date End Date Suppan, Brigitte A, LAND CLEARER.STRATEGIC DEVELOPMENT MANAGER [address] [facility] [place] [address] PCP - General Family Medicine 09/08/24 Yuliana Patton, LAND CLEARER.STRATEGIC DEVELOPMENT MANAGER [address] [facility] [place] [address] Mental Retardation Nurse Family Medicine 07/04/24 Brigitte Segal, LAND CLEARER.STRATEGIC DEVELOPMENT MANAGER [address] [facility] [place] [address] Mental Retardation Nurse Family Medicine 07/04/24 Enamel Cracker Relationship Specialty Start Date End Date Brigitte Segal, LAND CLEARER.STRATEGIC DEVELOPMENT MANAGER [address] [facility] [address] PCP - General Family Medicine 09/08/24 Enamel Cracker Relationship Specialty Start Date End Date Brigitte Segal, LAND CLEARER.STRATEGIC DEVELOPMENT MANAGER [address] [facility] [address] PCP - General Family Medicine 09/08/24 Yuliana Patton, LAND CLEARER.STRATEGIC DEVELOPMENT MANAGER [address] [facility] [place] [address] Mental Retardation Nurse Family Medicine 07/04/24 10/20/24 Brigitte Segal, LAND CLEARER.STRATEGIC DEVELOPMENT MANAGER [address] [facility] [place] [address] Mental Retardation Nurse Family Medicine 07/04/24 10/20/24 Enamel Cracker Relationship Specialty Start Date End Date Brigitte Segal, LAND CLEARER.STRATEGIC DEVELOPMENT MANAGER [address] [facility] [address] PCP - General Family Medicine 09/08/24 Team Status: Active Member Role Status Dates Brigitte Suppan , PAINTER TOUCH UP Primary Care Provider Active Team Status: Inactive Member Role Status Dates Dr. Neo Tejeda DO Emergency Provider Active Start: September 07, 2024 End: September 15, 2024 Brigitte Suppan , PAINTER TOUCH UP Primary Care Provider Active Start: September 07, [...] Start: September 07, 2024 Brigittemillicent Segal , PAINTER TOUCH UP Primary Care Provider Active Start: September 07, [...] Start: September 08, 2024 Brigitte Segal , PAINTER TOUCH UP Primary Care Provider Active Start: September 08, [...] Member Role Status Dates Brigitte Segal , PAINTER TOUCH UP Primary Care Provider Active Start: September 08, 2024 Dr. Dejuan Brooks MD Attending Provider Active S tart: September 08, 2024 Team Status: Active Member Role Status Dates Dr. Neo Tejeda DO Emergency Provider Active Start: September 09, 2024 Brigitte Segal , PAINTER TOUCH UP Primary Care Provider Active Start: September 09, [...] Start: September 10, 2024 Brigitte Segal , PAINTER TOUCH UP Primary Care Provider Active Start: September 10, [...] Start: September 11, 2024 Brigitte Segal , PAINTER TOUCH UP Primary Care Provider Active Start: September 11, [...] Start: September 12, 2024 Brigitte Segal , PAINTER TOUCH UP Primary Care Provider Active Start: September 12, 2024 Dr. Jerrell Faith MD Admit Provider Active Star t: September 12, 2024 Dr. Jerrell Fatih MD Other Provider Active Star t: September 12, 2024 Dr. Lester Perdomo DO Attending Provider Active Start: September 12, 2024 Dr. Lester Perdomo DO Other Provider Active Star t: September 12, 2024 Team Status: Active Member Role Status Dates Dr. Neo Tejeda DO Emergency Provider Active Start: September 13, 2024 Brigitte Segal , PAINTER TOUCH UP Primary Care Provider Active Start: September 13, 2024 Dr. Jerrell Faith MD Admit Provider Active Star t: September 13, 2024 Dr. Jerrell Faith MD Other Provider Active Star t: September 13, 2024 Dr. Letser Perdomo DO Attending Provider Active Start: September 13, 2024 Dr. Lester Perdomo DO Other Provider Active Star t: September 13, 2024 Team Status: Active Member Role Status Dates Dr. Neo Tejeda DO Emergency Provider Active Start: September 14, 2024 Brigitte Segal , PAINTER TOUCH UP Primary Care Provider Active Start: September 14, [...] Start: September 15, 2024 Brigitte Segal , PAINTER TOUCH UP Primary Care Provider Active Start: September 15, [...] Member Role Status Dates Brigitte Segal , PAINTER TOUCH UP Primary Care Provider Active Start: October 16, 2024 End: October 16, 2024 Brigitte Segal , PAINTER TOUCH UP Referring Provider Active Start: October 16, 2024 End: October 16, 2024 Kalyn Taylor INSULATION INSPECTOR, INSULATION INSPECTOR-C Attending Provider Active Start: October 16, 2024 End: October 16, 2024 Team Status: Active Member Role/Relationship Status Dates Brigitte Segal , PAINTER TOUCH UP Primary Care Provider Active Team Status: Inactive Member Role/Relationship Status Dates Brigitte Huynhchristine , PAINTER TOUCH UP Primary Care Provider Active Start: October 16, 2024 End: October 16, 2024 rBigitte Huynhchristine , PAINTER TOUCH UP Referring Provider Active Start: October 16, 2024 End: October 16, 2024 Kalyn Taylor INSULATION INSPECTOR, INSULATION INSPECTOR-C Attending Provider Active Start: October 16, 2024 End: October 16, 2024 Team Status: Active Member Role/Relationship Status Dates Brigittecolette Segal , PAINTER TOUCH UP Primary Care Provider Active Start: February 08, 2025 Ed Physician Provider Emergency Provider Active Start: February 08, 2025 Dr. Janice Sanford MD Attending Provider Active Start: February 08, 2025 Team Status: Active Member Role/Relationship Status Dates Brigittecolette Segal , PAINTER TOUCH UP Primary Care Provider Active Start: February 08, [...] section and content) DATE CREATED AUTHOR 10/18/2024 [facility] DATE CREATED AUTHOR AUTHOR'S ORGANIZ ATION 11/02/2024 [facility] DATE CREATED AUTHOR AUTHOR'S ORGANIZ ATION 2024 [facility] FOR RECORDS PERTAINING TO PATIENTS WHO ARE [...] BE BASED ON THE PRIMARY CLINICAL RECORDS. [facility] [employer] provides no warranty or guarantee of the accuracy or completeness of information in this document.
--- OUTSIDE RECORDS SUMMARY | 2025-02-08 21:17 | XMS RPT_ITS | CCD ---
Author Organization [facility] Care Team Providers Care Press Brake Operator Name Role Phone Quan Mackenzie MD [...] Radha Durbin PA-C Primary Care Provider [phone] Haagen HEALTH SCIENCES PROGRAM COORDINATOR.FIELD MARKETING MANAGER, Yuliana Unavailable Suppan HEALTH SCIENCES PROGRAM COORDINATOR.FIELD MARKETING MANAGER, Brigitte A Unavailable Suppan HEALTH SCIENCES PROGRAM COORDINATOR.FIELD MARKETING MANAGER, Brigitte A Primary Care Provi emilia [...] Care Unavailable Suppan, Brigitte Referring Unavailable Claudia ADVERTISING SOLICITOR, Kalyn Attending Unavailable Radha Blount Referring Unavailable Radha Blount Primary Care Unavailable Mary Hill Attending Unavail able Suppan, Brigitte Primary Care Unavailable Taylor ADVERTISING SOLICITOR, Kalyn Referring Unavailable Taylor ADVERTISING SOLICITOR, Kalyn Attending Unavailable Haagen HEALTH SCIENCES PROGRAM COORDINATOR.FIELD MARKETING MANAGER, Yuliana Unavailable Suppan HEALTH SCIENCES PROGRAM COORDINATOR.FIELD MARKETING MANAGER, Brigitte A Unavailable SUPPAN, BRIGITTE A Attending [...] Unavailable Dr. Neo Tejeda DO Emergency Provider [phone] Suppan PHOTO FINISH PHOTOGRAPHER, Brigitte Primary Care Provider Kittoe MD, Dr. Allan Admit Provider Unavailable Marcell MANUEL, Dr. Allan Other Provider Unavailable Martínez MANUEL, Dr. Lopez Attending Provider Leanne PEDERSON, Dr. Batista Other Provider Marcell MANUEL, Dr. Allan Attending Provider Unavaila ble Leanne PEDERSON, Dr. Batista Attending Provider Todd MANUEL, Dr. Zaidi Attending Provider [phone] Martínez MANUEL, Dr. Lopez Other Provider Suppan PHOTO FINISH PHOTOGRAPHER, Brigitte Referring Provider Claudia ADVERTISING SOLICITOR-CKalyn Attending Provider Suppan PHOTO FINISH PHOTOGRAPHER, Brigitte Primary Care Provider Provider, Ed Physician Emergency Provider Dimitris Sanford MD, Dr. Janice Hillman Attending Provider Dr. Shahab Teixeira DO Emergency Provider Juvenal MANUEL, Dr. Janice Hillman Admit Provider Allergies Allergy Classification Reported Allergen(s) Allergy Type Date of Onset Reaction(s) Facility (20 sources) lisinopril; Translations: [LISINOPRIL] Drug Allergy 0 Cough [facility] Work Phone: Comment on above: cough (6 sources) sulfADIAZINE Drug Allergy 7 [facility] Work Phone: (20 sources) Sulfonamides (Antibiotic); Translations: [SULFA (SULFONAMIDE ANTIBIOTICS)] Drug Allergy 6 [facility] (5 sources) Sulfonamides (Antibiotic) Allergy to substance 2 Rash [facility] (1 source) Lisinopril Drug Allergy 5 [facility] (1 source) Sulfonamides (Antibiotic) Drug allergy (disorder) 5 [facility] Medications Current Medications Medication Drug [...] goal , PAD (peripheral artery disease) ([facility]) Take 1 tablet by mouth once daily. [...] goal , PAD (peripheral artery disease) ([facility]) Take 1 tablet by mouth once daily. [...] tablets by mouth once daily. lactobacillus acidophilus [id number] unt oral capsule (20 sources) Start: 08-04-2023 [...] NMA PO DAILY May 16, 2017 12:00am [facility] Start: 05-16-2017 Multivitamin 1 EACH tablet [...] DAILY September 07, 2024 1:00am gerd [place] (7 sources) Start: take 1 capsule by mouth once daily [place] 450 mg capsule Active 450 mg PO DAILY February 08, 2025 12:00am prostate Start: 05-08-2017 take 1 tablet by lissa twice daily [facility] SAW [place] CAPS 320 mg. One tablet by mouth twice daily SAW [place] (SERENOA REPENS) CAPS [id number] Anjelica Walden tamsulosin hydrochloride 0.4 mg oral [...] on above: Take 1 capsule by mo [facility] once daily. Take 2 capsules by m [...] 25, 2021 12:00am February 19, 2024 11:13am [facility] Start: 08-23-2020 End: 10-19-2020 take 1 tablet [...] for pain and inflammation with food NAPROXEN [id number] Anjelica Walden niacin 500 mg extended release [...] One tablet by mouth twice daily NIACIN [id number] Anjelica Walden Start: 03-17-2014 End: 09-09-2019 take [...] Comment on above: Take 1 capsule by [facility] once daily. Take 2 capsules by [facility] once daily. predniSONE 20 mg oral [...] Comment on above: Take 3 tablets by [facility] once daily for 5 days. rOPINIRole 4 mg oral tablet (20 sources) Nonergot Dopamine Agonist Start: End: take 1 tablet by mouth three times daily Ropinirole 4 MG tablet Discontinued 4 mg PO THREE TIMES A DAY August 26, 2020 1:00am April 25, 2021 10:22am Check with primary doctor Comment on above: Take [address] [facility] three times daily. traZODone hydrochloride 50 [...] (1 source) Drug therapy finding; Translations: [Other nursing home (current) drug therapy] 12-24-2023 Episodic Other bone [...] 7 x 30 mm Protege stenting 03/18/14; HAIR TINTER 5 x 2 Powerflex and 6 x [...] 05-08-2017 Episodic Other aftercare (1 source) Other [employer] (current) drug therapy; Translations: [Current use of [...] 7 x 30 mm Protege stenting 03/18/14; HAIR TINTER 5 x 2 Powerflex and 6 x [...] Auto (Unsp spec) [#/Vol] 1.00 10*3/uL 0.83-4.51 [facility] Absolute neutrophil countOrd ered By: ED PROVIDER on 02-08-2025 Neutrophils (Bld) [#/Vol] 7.7 10*3/uL 2.0-7.7 [facility] Activated partial thrombopla stin time (aPTT) in platelet poor plasma by coagulation aOrdered By: ED PROVIDER on 02-08-2025 aPTT Coag (PPP) [Time] 26.3 s 24.1-36.2 [facility] Anion gap in Serum or Plasma Ordered By: ED PROVIDER on 02-08-2025 Anion gap [Moles/Vol] 18 mmol/L High 5-15 [facility] BUN/creatinine ratioOrdered By: ED PROVIDER on 02-08-2025 Urea nitrogen/Creatinine [Mass ratio] 16.5 mg/mg 10-20 [facility] Basophil percentageOrdered B y: ED PROVIDER on 02-08-2025 Basophils/100 WBC (Bld) 0.7 % 0-1 [facility] Blood platelets count (numbe r/volume)Ordered By: ED PROVIDER on 02-08-2025 Platelets (Bld) [#/Vol] 200 10*3/uL 150-450 [facility] Carbon dioxide, total [Moles /volume] in Central venous bloodOrdered By: ED PROVIDER on 02-08-2025 CO2 [Moles/Vol] 20.0 mmol/L Low 21.0-32.0 [facility] Chloride assayOrdered By: ED PROVIDER on 02-08-2025 Chloride [Moles/Vol] 103 mmol/L 98-108 [facility] Eosinophil %Ordered By: ED P ROVIDER on 02-08-2025 Eosinophils/100 WBC (Bld) 4.1 % 0-5 [facility] Erythrocyte distribution wid th ratioOrdered By: ED PROVIDER on 02-08-2025 Erythrocyte distribution width (RBC) [Ratio] 14.8 % High 11.6-14.6 [facility] Glomerular filtration rate ( GFR) estimation/1.73 sq m using serum, plasma, or whole bOrdered By: ED PROVIDER on 02-08-2025 GFR/1.73 sq M.predicted among non-blacks MDRD (S/P/Bld) [Vol rate/Area] 52 mL/min/{1.73_m2} Low >60 [facility] Hematocrit Auto (Bld) [Volum e fraction]Ordered By: ED PROVIDER on 02-08-2025 Hematocrit (Bld) [Volume fraction] 47.7 % 40-54 [facility] Hemoglobin measurementOrdere d By: ED PROVIDER on 02-08-2025 Hemoglobin (Bld) [Mass/Vol] 16.3 g/dL 13.0-16.5 [facility] Immature granulocyte percent ageOrdered By: ED PROVIDER on 02-08-2025 Immature granulocytes/100 WBC (Bld) 1.500 % High 0.0-0.9 [facility] Comment on above: IG% - Immature Granu locytes (promyelocytes, myelocytes and metamyelocytes) > 1% indicates that a LEFT SHIFT is Present. International normalized rat io (INR) calculationOrdered By: ED PROVIDER on 02-08-2025 INR Coag (Bld) [Relative time] 1.0 {INR} [facility] Lymphocyte %Ordered By: ED P ROVIDER on 02-08-2025 Lymphocytes/100 WBC (Bld) 9.9 % Low 19-41 [facility] MCV (mean corpuscular volume ) determinationOrdered By: ED PROVIDER on 02-08-2025 MCV (RBC) [Entitic vol] 89.5 fL 80-94 [facility] Magnesium measurement (mass/ volume)Ordered By: Janice Sanford on 02-08-2025 Magnesium (Unsp spec) [Mass/Vol] 1.8 mg/dL 1.5-2.2 [facility] Mean corpuscular hemoglobin (MCH) determinationOrdered By: ED PROVIDER on 02-08-2025 MCH (RBC) [Entitic mass] 30.6 pg 27.0-32.0 [facility] Mean corpuscular hemoglobin concentration (MCHC) determinationOrdered By: ED PROVIDER on 02-08-2025 MCHC (RBC) [Mass/Vol] 34.2 g/dL 32-36 [facility] Mean platelet volume determi nationOrdered By: ED PROVIDER on 02-08-2025 Platelet mean volume (Bld) [Entitic vol] 11.3 fL 6.2-12.0 [facility] Monocyte percentageOrdered B y: ED PROVIDER on 02-08-2025 Monocytes/100 WBC (Bld) 8.0 % 0-10 [facility] Neutrophil %Ordered By: ED P ROVIDER on 02-08-2025 Neutrophils/100 WBC (Bld) 75.8 % High 47-70 [facility] Potassium measurement (mass/ volume)Ordered By: ED PROVIDER on 02-08-2025 Potassium (Unsp spec) [Mass/Vol] 3.4 mmol/L 3.3-5.1 [facility] Prothrombin timeOrdered By: ED PROVIDER on 02-08-2025 PT Coag (PPP) [Time] 13.1 s 11.7-14.9 [facility] RBC Auto (Bld) [#/Vol]Ordere d By: ED PROVIDER on 02-08-2025 RBC (Bld) [#/Vol] 5.33 10*6/uL 4.6-6.2 [facility] RDWOrdered By: ED PROVIDER o n 02-08-2025 RDW 47.8 fl High 35.1-43.9 [facility] Serum creatinine measurement (mass/volume)Ordered By: ED PROVIDER on 02-08-2025 Creatinine [Mass/Vol] 1.39 mg/dL High 0.70-1.20 [facility] Serum glucose measurement (m ass/volume)Ordered By: ED PROVIDER on 02-08-2025 Glucose [Mass/Vol] 102 mg/dL High 70-99 [facility] Serum or plasma calcium nichole urement (mass/volume)Ordered By: ED PROVIDER on 02-08-2025 Calcium [Mass/Vol] 9.5 mg/dL 7.6-11.0 [facility] Serum or plasma ethanol nichole urement (mass/volume)Ordered By: ED PROVIDER on 02-08-2025 Ethanol [Mass/Vol] 223.0 mg/dL High <10.1 [facility] Serum or plasma urea nitroge n measurement (mass/volume)Ordered By: ED PROVIDER on 02-08-2025 Urea nitrogen [Mass/Vol] 23 mg/dL High 4-19 [facility] Sodium levelOrdered By: ED P HALLIE on 02-08-2025 Sodium [Moles/Vol] 141 mmol/L 133-145 [facility] Troponin T.cardiac [Mass/vol ume] in Serum or Plasma by High sensitivity methodOrdered By: ED PROVIDER on 02-08-2025 Troponin T.cardiac High sensitivity method [Mass/Vol] 29 ng/L High <22 [facility] White blood cell (WBC) count Ordered By: ED PROVIDER on 02-08-2025 WBC (Bld) [#/Vol] 10.1 10*3/uL 4.4-11.0 [facility] CNPNon 10-31-2024 CNPN Telephone ([facility]) CLARK LYLES ([id number]) 1935 M Date Time Provider Department 10/31/24 BRIGITTE SEGAL [facility] During your visit today, we recorded the following information about you: Jaqueline Andre, ZACKARY 10/31/2024 3:35 PM Signed Palliative Medicine Referral Assessment Referral Accepted: No, Reason for Denial: Chart reviewed, pal med order meant for [facility] in [place]. Jaqueline Andre RN October 31, 2024 Allergies As of Date: 10/31/2024 Noted Allergy Reaction LISINOPRIL 12/28/2009 3 - Cough SULFA (SULFONAMIDE ANTIBIOTICS) 03/09/2006 4 - Hives Date Reviewed: 09/19/2024 Reviewed by: Shirley Rivera MA - Fully Assessed Reason for Visit: [id number] [Other] Initial Consult [665] Prescriptions as of [...] Meds Comments as of 04/18/2021: Taking [place]. Problem List As Of Date 10/31/2024 Noted [...] chronic blood los*01/27/2020 Coronary artery disease involving apache rabago*12/22/2020 S/P primary angioplasty with coronary stent [Z9*12/22/2020 Fall from standing [W19.XXXA] 09/20/2021 Encounter for support and coordination of trans*08/11/2023 Acute respiratory failure with hypoxia (HCC) [J*09/25/2023 Encounter Status:Closed by JAQUELINE ANDRE on 10/31/24 [facility] 10-27-2024 [facility] Telephone ([facility]) CLARK LYLES ([id number]) 1935 M Date Time Provider Department 10/27/24 [facility] During your visit today, we recorded the following information about you: Amita Kim LPN 10/27/2024 3:57 PM Signed Rohan with [facility] calls to report family is requesting order for palliative care. Fax order to [facility] in [place]. Rohan also reports he saw pt today and is extending nurse to once a week x 2 weeks. Pt will then be discharged from Nursing. Rohan reports that Pulmonary gave new dx for pt of COPD and pulmonary htn. HIWOT Mariee Jacqueline A, APRN.[facility] 10/27/2024 4:52 PM Signed Please ask [...] Signed Spoke to Paulino (not Rohan) with [facility]. Paulino reports that he did [...] infection (HCC) [J44.0] Order(s):CONSULT TO PALLIATIVE CARE [[id number]] Order #: [id number]: 1 FUTURE Prescriptions as of 10/28/2024 - [...] Meds Comments as of 04/18/2021: Taking [place]. Problem List As Of Date 10/27/2024 Noted Resolved BENIGN HYPERTENSION [I10] 01/08/2006 Anxiety state [F41.1] 01/05/2009 GERD (gastroesophageal reflux disease) [K21.9] 01/10/2011 BPH (benign prostatic hyperplasia) [N40.0] 03/17/2013 PAD (peripheral artery disease) ([facility]) [I73.9] 02/28/2014 Hyperlipidemia LDL goal <100 [E78.5] 03/28/2016 Hyperbilirubinemia [E80.6] 05/10/2016 Parkinson's disease (HCC) [G20.A1] 07/11/2017 Angina pectoris (HCC) [I20.9] 08/25/2019 Restless legs syndrome [G25.81] 01/27/2020 Iron deficiency anemia due to chronic blood los*01/27/2020 Coronary artery disease involving apache rabago*12/22/2020 S/P primary angioplasty with coronary stent [Z9*12/22/2020 Fall from standing [W19.XXXA] 09/20/2021 Encounter for support an (more content not included)... Normal [facility] Pulmonary Visit Reporton Pulmonary Visit Report [facility] [place] [address] [place] [address] OFFICE VISIT Date of Service: 10/16/24 MR#: [id number] Acct: [id number] Name: CLARK LYLES Rep #: [id number] : 1935 Provider: MALIKA Taylor Age/Sex: 88/M Location: [facility].PMW Status: Signed Assessment and Plan Assessment and [...] for hospital follow-up after recent hospitalization at [facility] from September 07 through September 15, [...] H Pu (more content not included)... Normal [facility] CNPNon 10-15-2024 [facility] Telephone ([facility]) CLARK LYLES ([id number]) 1935 M Date Time Provider Department 10/15/24 [facility]GAL [facility] During your visit today, we recorded the following information about you: Radha Green, RN 10/15/2024 3:04 PM Signed [facility]- nurse- [facility]- reports he did patient eval today and will extend [facility] visits to 1 x week for [...] Meds Comments as of 04/18/2021: Taking Saw [facility]. Problem List As Of Date 10/15/2024 Noted Resolved BENIGN HYPERTENSION [I10] 01/08/2006 Anxiety state [F41.1] 01/05/2009 GERD (gastroesophageal reflux disease) [K21.9] 01/10/2011 BPH (benign prostatic hyperplasia) [N40.0] 03/17/2013 PAD (peripheral artery disease) ([facility]) [I73.9] 02/28/2014 Hyperlipidemia LDL goal <100 [E78.5] 03/28/2016 Hyperbilirubinemia [E80.6] 05/10/2016 Parkinson's disease (HCC) [G20.A1] 07/11/2017 Angina pectoris (HCC) [I20.9] 08/25/2019 Restless legs syndrome [G25.81] 01/27/2020 Iron deficiency anemia due to chronic blood los*01/27/2020 Coronary artery disease involving apache rabago*12/22/2020 S/P primary angioplasty with coronary stent [Z9*12/22/2020 Fall from standing [W19.XXXA] 09/20/2021 Encounter for support and coordination of trans*08/11/2023 Acute respiratory failure with hypoxia (HCC) [J*09/25/2023 Encounter Status:Closed by Radha GREEN on 10/30/[address] [facility] 10-03-2024 [facility] Telephone ([facility]) CLARK LYLES ([id number]) 1935 M Date Time Provider Department 10/03/24 BRIGITTE SEGAL During your visit today, we recorded the following information about you: Mary Balderas, RN 10/03/2024 2:54 PM Signed Jamie with [facility] is calling due to he [...] needs called back with information. Brigitte Segal APRN.[facility] 10/03/2024 2:59 PM Signed Yes. Please increase O2 to 4l. Thank you for the recert. Shirley Rivera MA 10/03/2024 3:56 PM Signed Detailed message left on secure line for Jamie [facility] Shirley Rivera MA October 03, [...] Meds Comments as of 04/18/2021: Taking [place]. Problem List As Of Date 10/03/2024 Noted [...] chronic blood los*01/27/2020 Coronary artery disease involving apache rabago*12/22/2020 S/P primary angioplasty with coronary stent [Z9*12/22/2020 Fall from standing [W19.XXXA] 09/20/2021 Encounter for support and coordination of trans*08/11/2023 Acute respiratory failure with hypoxia (HCC) [J*09/25/2023 Encounter Status:Closed by SHIRLEY RIVERA on 10/03/24 [facility] CNOVon 09-19-2024 CNOV Office Visit ([facility] ) CLAKR LYLES ([id number]) 1935 M Date Time Provider Department 09/19/24 2:40 PM [facility] SEGAL [facility] During your visit today, we recorded the following information about you: Temperature Pulse Blood pressure Weight 98.7 degrees 80/minute 128/62 72.6 kg Brigitte Segal APRN.FIELD MARKETING MANAGER 09/19/2024 3:25 PM Signed This is [...] lipoma performed by Dr. Robe Mackenzie at [facility] REVSC OPN/PRQ FEM/POP W/STNT/ANGIOP SM VSL [...] included)... Normal [facility] Mikey 09-19-2024 [facility] Telephone ([facility]) CLARK LYLES ([id number]) 1935 M Date Time Provider Department 09/19/24 [facility] During your visit today, we recorded the following information about you: Whit Sheridan RN 09/19/2024 2:23 PM Signed Rohan calling with [facility] Physical Therapy with plan of care for patient. Pt will be seen 1x per week for 4 weeks for functional mobility training. No call back needed if provider agreeable. ZACKARY Vines Jacqueline A, HEALTH SCIENCES PROGRAM COORDINATOR.FIELD MARKETING MANAGER 09/19/2024 3:33 PM Signed Sounds good. [...] Meds Comments as of 04/18/2021: Taking [place]. Problem List As Of Date 09/19/2024 Noted [...] chronic blood los*01/27/2020 Coronary artery disease involving apache rabago*12/22/2020 S/P primary angioplasty with coronary stent [Z9*12/22/2020 Fall from standing [W19.XXXA] 09/20/2021 Encounter for support and coordination of trans*08/11/2023 Acute respiratory failure with hypoxia (HCC) [J*09/25/2023 Encounter Status:Closed by BRIGITTE SEGAL [facility]19[facility] CLARK LYLES ([id number]) 1935 M Date Time Provider Department 09/17/24 BRIGITTE SEGAL During your visit today, we recorded the following information about you: Tracy Cedillo, RN 09/17/2024 12:57 PM Signed Hellen calling from [facility] to report plan of care for patient and snf will visit patient 1 time a week for 1 week and 2 times a week for 2 weeks. Prison will work with patient on wound care (patient has skin tear to right elbow) and management of O2 levels. Hellen had no orders for wound care. Hellen cleaned wound and put on Vaseline gauze and band aid. Hellen also notes that patient is on Oxygen and thought that he was only going to be on oxygen for a week. 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 Hellen did not know if provider wanted to address Oxygen use. Patient is scheduled to see PCP 09/19/2024. No call back needed unless there are questions. ZACKARY Tristan Jacqueline A, SHUKRI.FIELD MARKETING MANAGER 09/18/2024 8:09 AM Signed Patient will need to stay on oxygen until he follows up with pulmonary. I have not seen him since February 2024 therefore I am not really able to shed any light on his oxygen use. Not common to use oxygen for only a week. Tracy Cedillo RN 09/18/2024 9:53 AM Signed Haley from [facility] calls and reports that granddaughter [...] provider tomorrow 09/19/2024. Please Contact Haley back [phone]. ZACKARY Tristan Jacqueline A, SHUKRI.FIELD MARKETING MANAGER 09/18/2024 10:41 AM Signed Absolutely keep [...] Date Reviewed: 03/27/2024 Reviewed by: Brigitte Segal, SHUKRI.FIELD MARKETING MANAGER - Fully Assessed Reason for Visit: Prison Plan of Care [Other] Prescriptions as of [...] Meds Comments as of 04/18/2021: Taking [place]. Problem List As Of Date 09/17/2024 Noted [...] chronic blood los*01/27/2020 Coronary artery disease involving apache rabago*12/22/2020 S/P primary angioplasty with coronary stent [Z9*12/22/2020 Fall from standing [W19.XXXA] 09/20/2021 Encounter for support and coordination of trans*08/11/2023 Acute respiratory failure with hypoxia (HCC) [J*09/25/2023 Encounter Status:Closed by TRACY CEDILLO on 09/22/[address] [facility]-20[facility] ([id number]) 1935 M Date Time Provider Department 09/15/24 BRIGITTE SEGAL During your visit today, we recorded the following information about you: Tracy Cedillo RN 09/15/2024 3:32 PM Signed Rochelle from [facility] calls and states that patient is being discharged from [facility] PCU on 09/05/2024 with the diagnosis of hypoxia and acute respiratory failure. Rochelle asking if provider willing to follow patient with orders for snf, physical therapy, occupational therapy and social work. If agreeable please give Rochelle a call back . Thank you, ZACKARY Tristan Jacqueline A, APRN.[facility] 09/15/2024 4:41 PM Signed Yes. Of course Brigtite Segal APRN.[facility] 09/15/2024 5:31 PM Signed Patient is [...] Signed Detailed message left for Rochelle at [facility] with verbal agreement of plan. Shirley Rivera MA September 16, 2024 9:12 AM Allergies As of Date: 09/15/2024 Noted Allergy Reaction LISINOPRIL 12/28/2009 3 - Cough SULFA (SULFONAMIDE ANTIBIOTICS) 03/09/2006 4 - Hives Date Reviewed: 03/27/2024 Reviewed by: Brigitte Segal APRN.FIELD MARKETING MANAGER - Fully Assessed Reason for Visit: [...] Meds Comments as of 04/18/2021: Taking [place]. Problem List As Of Date 09/15/2024 Noted Resolved BENIGN HYPERTENSION [I10] 01/08/2006 Anxiety state [F41.1] 01/05/2009 GERD (gastroesophageal reflux disease) [K21.9] 01/10/2011 BPH (benign prostatic hyperplasia) [N40.0] 03/17/2013 PAD (peripheral artery disease) ([facility]) [I73.9] 02/28/2014 Hyperlipidemia LDL goal <100 [E78.5] 03/28/2016 Hyperbilirubinemia [E80.6] 05/10/2016 Parkinson's disease (HCC) [G20.A1] 07/11/2017 Angina pectoris (HCC) [I20.9] 08/25/2019 Restless legs syndrome [G25.81] 01/27/2020 Iron deficiency anemia due to chronic blood los*01/27/2020 Coronary artery disease involving apache rabago*12/22/2020 S/P primary angioplasty with coronary stent [Z9* (more content not included)... Normal [facility] Discharge Instructionon 08-30 Discharge Instruction [facility] Medical Records Department [address] [place] [address] Instructions for Home/Discharge Instructions 09/15/24905 MR#: [id number] Acct: [id number] Name: CLARK LYLES Rep #: [id number] : 1935 88 From: John Soliz MD PCP: Brigitte Segal, PHOTO FINISH PHOTOGRAPHER Status:ADM IN Discharge Instructions Diet Discharge Diet: [...] MD; Dr. Lester Perdomo DO Signed Normal [facility] Serum or plasma trough vanco mycin levelOrdered By: Jerrell Monterroso on 09-15-2024 Vancomycin trough [Mass/Vol] 16.5 ug/mL High 5.0-15.0 [facility] Comment on above: VANCOMYCIN STANDARED DRUG THERAPY TROUGH LEVEL: 5.0 - 15.0 mg/L VANCOMYCIN HIGH INTENSITY THERAPY TROUGH LEVEL: 15.0 - 20.0 mg/L High Intensity therapy recommended for serious lifethreatening infections include:- Jopdexotyp-Lyygzjnehwoo-Auknjadkn (Ventilator/Healtcare Associated)-Sepsis PLEASE CONTACT PHARMACY SERVICES (#[id number]) FOR INTERPRETATIONOF RESULTS. Vancomycin, Trough Levelon 0 09-15-2024 VANCO, TROUGH 16.5 ug/mL High 5.0-15.0 [facility] Comment on above: Order Comment: Comme nts: Trough to be drawn 30 mins prior to scheduled [id number] Result Comment: VANC OMYCIN STANDARED DRUG THERAPY TROUGH LEVEL: 5.0 - 15.0 mg/L VANCOMYCIN HIGH INTENSITY THERAPY TROUGH LEVEL: 15.0 - 20.0 mg/L High Intensity therapy recommended for serious life threatening infections include: - Meningitis -Endocarditis -Pneumonia (Ventilator/Healtcare Associated) -Sepsis PLEASE CONTACT PHARMACY SERVICES (#[id number]) FOR INTERPRETATION OF RESULTS. Performed By: #### L 100.0100, L500.2500 #### [facility] [address] [place], [address] Absolute lymphocyte countOrd ered By: Lester Perdomo on 09-14-2024 Lymphocytes Auto (Unsp spec) [#/Vol] 1.09 10*3/uL 0.83-4.51 [facility] Absolute neutrophil countOrd ered By: Lester Perdomo on 09-14-2024 Neutrophils (Bld) [#/Vol] 12.0 10*3/uL High 2.0-7.7 [facility] Automated lymphocyte count a s percentage of total leukocytesOrdered By: Lester Perdomo on 09-14-2024 Lymphocytes/100 WBC Auto (Unsp spec) 7.3 % Low 19-41 [facility] Basic Metabolic Profile (BMP )on 09-14-2024 BUN/CRE 44.2 RATIO High 10-20 [facility] Comment on above: Performed By: #### L 100.0100, L500.2500 #### [facility] [address] [place], [address] CA,Total 8.6 mg/dL Normal 8.5-10.1 [facility] Comment on above: Performed By: #### L 100.0100, L500.2500 #### [facility] [address] [place], [address] Chloride [Moles/Vol] 106 mmol/L Normal 98-107 [facility] Comment on above: Performed By: #### L 100.0100, L500.2500 #### [facility] [address] [place], [address] CO2 [Moles/Vol] 27.0 mmol/L Normal 21.0-32.0 [facility] Comment on above: Performed By: #### L 100.0100, L500.2500 #### [facility] [address] [place], [address] Creatinine [Mass/Vol] 0.84 mg/dL Normal 0.70-1.30 [facility] Comment on above: Result Comment: The validity of the calculated GFR GFRAA in patients over 70 years has not been determined. Clinical correlation is essential. Performed By: #### L 100.0100, L500.2500 #### [facility] [address] [place], [address] ECRCL 63.04 ml/min Normal [facility] Comment on above: Performed By: #### L 100.0100, L500.2500 #### [facility] [address] [place], [address] EST GFR - AA 112 mL/min Normal >60 [facility] Comment on above: Result Comment: Afri can Citizen [place] GFR Calc Performed By: #### L 100.0100, L500.2500 #### [facility] [address] [place], [address] GAP 6 Normal 5-15 [facility] Comment on above: Performed By: #### L 100.0100, L500.2500 #### [facility] [address] [place], [address] GFR/1.73 sq M.predicted among non-blacks MDRD (S/P/Bld) [Vol rate/Area] 92 mL/min/{1.73_m2} Normal >60 [facility] Comment on above: Result Comment: Non- GFR Calc Performed By: #### L 100.0100, L500.2500 #### [facility] [address] [place], [address] Glucose [Mass/Vol] 156 mg/dL High 74-106 [facility] Comment on above: Result Comment: Fast ing Glucose result greater than or equal to 126 mg/dL suggests DIABETES MELLITUS per A.D.A. criteria. Performed By: #### L 100.0100, L500.2500 #### [facility] [address] [place], [address] Potassium [Moles/Vol] 3.4 mmol/L Low 3.5-5.1 [facility] Comment on above: Performed By: #### L 100.0100, L500.2500 #### [facility] [address] [place], [address] Sodium [Moles/Vol] 139 mmol/L Normal 136-145 [facility] Comment on above: Performed By: #### L 100.0100, L500.2500 #### [facility] [address] [place], [address] Urea nitrogen [Mass/Vol] 37 mg/dL High 7-18 [facility] Comment on above: Performed By: #### L 100.0100, L500.2500 #### [facility] [address] [place], [address] Basophil percentageOrdered B y: Lester Perdomo on 09-14-2024 Basophils/100 WBC (Bld) 0.1 % 0-1 [facility] Blood urea nitrogen (BUN)/cr eatinine ratioOrdered By: Lester Perdomo on 09-14-2024 Urea nitrogen/Creatinine [Mass ratio] 44.2 mg/mg High 10-20 [facility] CBC W/Diff, Automatedon - REACTIVE LYMPH 1+ Normal [facility] Comment on above: Performed By: #### L 100.0100, L500.2500 #### [facility] [address] [place], [address] Carbon dioxide measurementOr dered By: Lester Perdomo on 09-14-2024 CO2 [Moles/Vol] 27.0 mmol/L 21.0-32.0 [facility] Chloride measurementOrdered By: Lester Perdomo on 09-14-2024 Chloride [Moles/Vol] 106 mmol/L 98-107 [facility] Eosinophil percentageOrdered By: Lester Perdomo on 09-14-2024 Eosinophils/100 WBC (Bld) 0.3 % 0-5 [facility] Erythrocyte distribution wid th ratioOrdered By: Lester Perdomo on 09-14-2024 Erythrocyte distribution width (RBC) [Ratio] 16.1 % High 11.6-14.6 [facility] Erythrocyte distribution wid th standard deviationOrdered By: Lester Perdomo on 09-14-2024 Erythrocyte distribution width (RBC) [Ratio] 56.8 fl High 35.1-43.9 [facility] Glomerular filtration rate ( GFR) estimationOrdered By: Lester Perdomo on 09-14-2024 GFR/1.73 sq M.predicted among non-blacks MDRD (S/P/Bld) [Vol rate/Area] 92 mL/min/{1.73_m2} >60 [facility] Comment on above: Non- GFR Calc Glucose measurementOrdered B y: Lester Perdomo on 09-14-2024 Glucose [Mass/Vol] 156 mg/dL High 74-106 [facility] Comment on above: Fasting Glucose resu lt greater than or equal to 126 mg/dL suggests DIABETES MELLITUS per A.D.A. criteria. Hematocrit Auto (Bld) [Volum e fraction]Ordered By: Lester Perdomo on 09-14-2024 Hematocrit (Bld) [Volume fraction] 43.5 % 40-54 [facility] Hemoglobin measurementOrdere d By: Lester Perdomo on 09-14-2024 Hemoglobin (Bld) [Mass/Vol] 14.3 g/dL 13.0-16.5 [facility] Immature granulocytes/100 WB C Auto (Bld)Ordered By: Lester Perdomo on 09-14-2024 Immature granulocytes/100 WBC (Bld) 4.800 % High 0.0-0.9 [facility] Comment on above: IG% - Immature Granu locytes (promyelocytes, myelocytes and metamyelocytes) > 1% indicates that a LEFT SHIFT is Present. MCV (mean corpuscular volume ) determinationOrdered By: Lester Perdomo on 09-14-2024 MCV (RBC) [Entitic vol] 96.2 fL High 80-94 [facility] Mean corpuscular hemoglobin (MCH) determinationOrdered By: Lester Perdomo 09-14-2024 MCH (RBC) [Entitic mass] 31.6 pg 27.0-32.0 [facility] Mean corpuscular hemoglobin concentration (MCHC) determinationOrdered By: Lester Perdomo on 09-14-2024 MCHC (RBC) [Mass/Vol] 32.9 g/dL 32-36 [facility] Mean platelet volume determi nationOrdered By: Lester Perdomo on 09-14-2024 Platelet mean volume (Bld) [Entitic vol] 11.7 fL 6.2-12.0 [facility] Monocyte percentageOrdered B y: Lester Perdomo on 09-14-2024 Monocytes/100 WBC (Bld) 7.0 % 0-10 [facility] Neutrophil percentageOrdered By: Lester Perdomo on 09-14-2024 Neutrophils/100 WBC (Bld) 80.5 % High 47-70 [facility] Nucleated red blood cell per centageOrdered By: Lester Perdomo on 09-14-2024 Nucleated RBC/100 WBC (Bld) [Ratio] 0 % 0-5 [facility] Platelet countOrdered By: Geovany Perdomo on 09-14-2024 Platelets (Bld) [#/Vol] 152 10*3/uL 150-450 [facility] Potassium measurementOrdered By: Lester Perdomo on 09-14-2024 Potassium [Moles/Vol] 3.4 mmol/L Low 3.5-5.1 [facility] RBC Auto (Bld) [#/Vol]Ordere d By: Lester Perdomo on 09-14-2024 RBC (Bld) [#/Vol] 4.52 10*6/uL Low 4.6-6.2 [facility] Serum anion gap measurementO rdered By: Lester Perdomo on 09-14-2024 Anion gap [Moles/Vol] 6 mmol/L 5-15 [facility] Serum or plasma calcium nichole urement (mass/volume)Ordered By: Lester Perdomo on 09-14-2024 Calcium [Mass/Vol] 8.6 mg/dL 8.5-10.1 [facility] Serum or plasma creatinine m easurement (mass/volume)Ordered By: Lester Perdomo on 09-14-2024 Creatinine [Mass/Vol] 0.84 mg/dL 0.70-1.30 [facility] Comment on above: The validity of the calculated GFR & GFRAA in patients over 70 years has not been determined. Clinical correlation is essential. Serum or plasma urea nitroge n measurement (mass/volume)Ordered By: Lester Perdomo on 09-14-2024 Urea nitrogen [Mass/Vol] 37 mg/dL High 7-18 [facility] Sodium levelOrdered By: Lester Perdomo on 09-14-2024 Sodium [Moles/Vol] 139 mmol/L 136-145 [facility] White blood cell (WBC) count Ordered By: Lester Perdomo on 09-14-2024 WBC (Bld) [#/Vol] 14.9 10*3/uL High 4.4-11.0 [facility] Basic Metabolic Profile (BMP )on 09-13-2024 BUN/CRE 30.9 RATIO High 10-20 [facility] Comment on above: Performed By: #### L 100.0100, L500.2500 #### [facility] [address] [place], [address] CA,Total 8.6 mg/dL Normal 8.5-10.1 [facility] Comment on above: Performed By: #### L 100.0100, L500.2500 #### [facility] [address] [place], [address] Chloride [Moles/Vol] 103 mmol/L Normal 98-107 [facility] Comment on above: Performed By: #### L 100.0100, L500.2500 #### [facility] [address] [place], [address] CO2 [Moles/Vol] 33.0 mmol/L High 21.0-32.0 [facility] Comment on above: Performed By: #### L 100.0100, L500.2500 #### [facility] [address] [place], [address] Creatinine [Mass/Vol] 1.10 mg/dL Normal 0.70-1.30 [facility] Comment on above: Result Comment: The validity of the calculated GFR GFRAA in patients over 70 years has not been determined. Clinical correlation is essential. Performed By: #### L 100.0100, L500.2500 #### [facility] [address] [place], [address] ECRCL 49.57 ml/min Normal [facility] Comment on above: Performed By: #### L 100.0100, L500.2500 #### [facility] [address] [place], [address] EST GFR - AA 82 mL/min Normal >60 [facility] Comment on above: Result Comment: Afri can [place] GFR Calc Performed By: #### L 100.0100, L500.2500 #### [facility] [address] [place], [address] GAP 3 Low 5-15 [facility] Comment on above: Performed By: #### L 100.0100, L500.2500 #### [facility] [address] [place], [address] GFR/1.73 sq M.predicted among non-blacks MDRD (S/P/Bld) [Vol rate/Area] 67 mL/min/{1.73_m2} Normal >60 [facility] Comment on above: Result Comment: Non- GFR Calc Performed By: #### L 100.0100, L500.2500 #### [facility] [address] [place], [address] Glucose [Mass/Vol] 168 mg/dL High 74-106 [facility] Comment on above: Result Comment: Fast ing Glucose result greater than or equal to 126 mg/dL suggests DIABETES MELLITUS per A.D.A. criteria. Performed By: #### L 100.0100, L500.2500 #### [facility] [address] [place], [address] Potassium [Moles/Vol] 3.3 mmol/L Low 3.5-5.1 [facility] Comment on above: Performed By: #### L 100.0100, L500.2500 #### [facility] [address] [place], [address] Sodium [Moles/Vol] 139 mmol/L Normal 136-145 [facility] Comment on above: Performed By: #### L 100.0100, L500.2500 #### [facility] [address] [place], [address] Urea nitrogen [Mass/Vol] 34 mg/dL High 7-18 [facility] Comment on above: Performed By: #### L 100.0100, L500.2500 #### [facility] [address] [place], [address] CBC W/Diff, Automatedon 08-30 Absolute Lymph 0.43 X10 3/uL Low 0.83-4.51 [facility] Comment on above: Performed By: #### L 100.0100, L500.2500 #### [facility] [address] [place], [address] Absolute Neut 12.2 X10 3/uL High 2.0-7.7 [facility] Comment on above: Performed By: #### L 100.0100, L500.2500 #### [facility] [address] [place], [address] Basophils/100 WBC (Bld) 0.7 % Normal 0-1 [facility] Comment on above: Performed By: #### L 100.0100, L500.2500 #### [facility] [address] [place], [address] Eosinophils/100 WBC (Bld) 0.0 % Normal 0-5 [facility] Comment on above: Performed By: #### L 100.0100, L500.2500 #### [facility] [address] [place], [address] Erythrocyte distribution width (RBC) [Ratio] 15.8 % High 11.6-14.6 [facility] Comment on above: Performed By: #### L 100.0100, L500.2500 #### [facility] [address] [place], [address] Hematocrit (Bld) [Volume fraction] 45.7 % Normal 40-54 [facility] Comment on above: Performed By: #### L 100.0100, L500.2500 #### [facility] [address] [place], [address] Hemoglobin (Bld) [Mass/Vol] 15.5 g/dL Normal 13.0-16.5 [facility] Comment on above: Performed By: #### L 100.0100, L500.2500 #### [facility] [address] [place], [address] IG% 2.600 High 0.0-0.9 [facility] Comment on above: Result Comment: IG% - Immature Granulocytes (promyelocytes, myelocytes and metamyelocytes) > 1% indicates that a LEFT SHIFT is Present. Performed By: #### L 100.0100, L500.2500 #### [facility] [address] [place], [address] Lymphocytes/100 WBC (Bld) 3.2 % Low 19-41 [facility] Comment on above: Performed By: #### L 100.0100, L500.2500 #### [facility] [address] [place], [address] MCH (RBC) [Entitic mass] 32.0 pg Normal 27.0-32.0 [facility] Comment on above: Performed By: #### L 100.0100, L500.2500 #### [facility] [address] [place], [address] MCHC (RBC) [Mass/Vol] 33.9 g/dL Normal 32-36 [facility] Comment on above: Performed By: #### L 100.0100, L500.2500 #### [facility] [address] [place], [address] MCV (RBC) [Entitic vol] 94.4 fL High 80-94 [facility] Comment on above: Performed By: #### L 100.0100, L500.2500 #### [facility] [address] [place], [address] Monocytes/100 WBC (Bld) 3.8 % Normal 0-10 [facility] Comment on above: Performed By: #### L 100.0100, L500.2500 #### [facility] [address] [place], [address] Neutrophils/100 WBC (Bld) 89.7 % High 47-70 [facility] Comment on above: Performed By: #### L 100.0100, L500.2500 #### [facility] [address] [place], [address] Nucleated RBC (Bld) [#/Vol] 0 10*3/uL Normal 0-5 [facility] Comment on above: Performed By: #### L 100.0100, L500.2500 #### [facility] [address] [place], [address] Platelet mean volume (Bld) [Entitic vol] 11.4 fL Normal 6.2-12.0 [facility] Comment on above: Performed By: #### L 100.0100, L500.2500 #### [facility] [address] [place], [address] Platelets (Bld) [#/Vol] 162 10*3/uL Normal 150-450 [facility] Comment on above: Performed By: #### L 100.0100, L500.2500 #### [facility] [address] [place], [address] RBC (Bld) [#/Vol] 4.84 10*6/uL Normal 4.6-6.2 [facility] Comment on above: Performed By: #### L 100.0100, L500.2500 #### [facility] [address] [place], [address] RDW SD 54.8 fl High 35.1-43.9 [facility] Comment on above: Performed By: #### L 100.0100, L500.2500 #### [facility] [address] [place], [address] WBC (Bld) [#/Vol] 13.5 10*3/uL High 4.4-11.0 [facility] Comment on above: Performed By: #### L 100.0100, L500.2500 #### [facility] [address] [place], [address] Vancomycin, Trough Levelon 0 - VANCO, TROUGH 17.0 ug/mL High 5.0-15.0 [facility] Comment on above: Order Comment: Comme nts: DRAW 30 MIN PRIOR TO DOSE 0330 Result Comment: VANC OMYCIN STANDARED DRUG THERAPY TROUGH LEVEL: 5.0 - 15.0 mg/L VANCOMYCIN HIGH INTENSITY THERAPY TROUGH LEVEL: 15.0 - 20.0 mg/L High Intensity therapy recommended for serious life threatening infections include: - Meningitis -Endocarditis -Pneumonia (Ventilator/Healtcare Associated) -Sepsis PLEASE CONTACT PHARMACY SERVICES (#3534) FOR INTERPRETATION OF RESULTS. Performed By: #### L 501.8820 #### [facility] [address], [address] Basic Metabolic Profile (BMP )on 09-12-2024 BUN/CRE 33.2 RATIO High 10-20 [facility] Comment on above: Performed By: #### L 100.0100, L500.2500 #### [facility] [address] [place], [address] CA,Total 8.5 mg/dL Normal 8.5-10.1 [facility] Comment on above: Performed By: #### L 100.0100, L500.2500 #### [facility] [address] [place], [address] Chloride [Moles/Vol] 105 mmol/L Normal 98-107 [facility] Comment on above: Performed By: #### L 100.0100, L500.2500 #### [facility] [address] [place], [address] CO2 [Moles/Vol] 28.0 mmol/L Normal 21.0-32.0 [facility] Comment on above: Performed By: #### L 100.0100, L500.2500 #### [facility] [address] [place], [address] Creatinine [Mass/Vol] 0.96 mg/dL Normal 0.70-1.30 [facility] Comment on above: Result Comment: The validity of the calculated GFR GFRAA in patients over 70 years has not been determined. Clinical correlation is essential. Performed By: #### L 100.0100, L500.2500 #### [facility] [address] [place], [address] ECRCL 56.80 ml/min Normal [facility] Comment on above: Performed By: #### L 100.0100, L500.2500 #### [facility] [address] [place], [address] EST GFR - AA 95 mL/min Normal >60 [facility] Comment on above: Result Comment: Afri can [place] GFR Calc Performed By: #### L 100.0100, L500.2500 #### [facility] [address] [place], [address] GAP 7 Normal 5-15 [facility] Comment on above: Performed By: #### L 100.0100, L500.2500 #### [facility] [address] [place], [address] GFR/1.73 sq M.predicted among non-blacks MDRD (S/P/Bld) [Vol rate/Area] 78 mL/min/{1.73_m2} Normal >60 [facility] Comment on above: Result Comment: Non- GFR Calc Performed By: #### L 100.0100, L500.2500 #### [facility] [address] [place], [address] Glucose [Mass/Vol] 156 mg/dL High 74-106 [facility] Comment on above: Result Comment: Fast ing Glucose result greater than or equal to 126 mg/dL suggests DIABETES MELLITUS per A.D.A. criteria. Performed By: #### L 100.0100, L500.2500 #### [facility] [address] [place], [address] Potassium [Moles/Vol] 3.4 mmol/L Low 3.5-5.1 [facility] Comment on above: Performed By: #### L 100.0100, L500.2500 #### [facility] [address] [place], [address] Sodium [Moles/Vol] 140 mmol/L Normal 136-145 [facility] Comment on above: Performed By: #### L 100.0100, L500.2500 #### [facility] [address] [place], [address] Urea nitrogen [Mass/Vol] 32 mg/dL High 7-18 [facility] Comment on above: Performed By: #### L 100.0100, L500.2500 #### [facility] [address] [place], [address] CBC W/Diff, Automatedon 08-30 Absolute Lymph 0.46 X10 3/uL Low 0.83-4.51 [facility] Comment on above: Performed By: #### L 100.0100, L500.2500 #### [facility] [address] [place], [address] Absolute Neut 11.3 X10 3/uL High 2.0-7.7 [facility] Comment on above: Performed By: #### L 100.0100, L500.2500 #### [facility] [address] [place], [address] Basophils/100 WBC (Bld) 0.2 % Normal 0-1 [facility] Comment on above: Performed By: #### L 100.0100, L500.2500 #### [facility] [address] [place], [address] Eosinophils/100 WBC (Bld) 0.0 % Normal 0-5 [facility] Comment on above: Performed By: #### L 100.0100, L500.2500 #### [facility] [address] [place], [address] Erythrocyte distribution width (RBC) [Ratio] 15.9 % High 11.6-14.6 [facility] Comment on above: Performed By: #### L 100.0100, L500.2500 #### [facility] [address] [place], [address] Hematocrit (Bld) [Volume fraction] 44.7 % Normal 40-54 [facility] Comment on above: Performed By: #### L 100.0100, L500.2500 #### [facility] [address] [place], [address] Hemoglobin (Bld) [Mass/Vol] 14.9 g/dL Normal 13.0-16.5 [facility] Comment on above: Performed By: #### L 100.0100, L500.2500 #### [facility] [address] [place], [address] IG% 1.700 High 0.0-0.9 [facility] Comment on above: Result Comment: IG% - Immature Granulocytes (promyelocytes, myelocytes and metamyelocytes) > 1% indicates that a LEFT SHIFT is Present. Performed By: #### L 100.0100, L500.2500 #### [facility] [address] [place], [address] Lymphocytes/100 WBC (Bld) 3.6 % Low 19-41 [facility] Comment on above: Performed By: #### L 100.0100, L500.2500 #### [facility] [address] [place], [address] MCH (RBC) [Entitic mass] 31.6 pg Normal 27.0-32.0 [facility] Comment on above: Performed By: #### L 100.0100, L500.2500 #### [facility] [address] [place], [address] MCHC (RBC) [Mass/Vol] 33.3 g/dL Normal 32-36 [facility] Comment on above: Performed By: #### L 100.0100, L500.2500 #### [facility] [address] [place], [address] MCV (RBC) [Entitic vol] 94.7 fL High 80-94 [facility] Comment on above: Performed By: #### L 100.0100, L500.2500 #### [facility] [address] [place], [address] Monocytes/100 WBC (Bld) 4.7 % Normal 0-10 [facility] Comment on above: Performed By: #### L 100.0100, L500.2500 #### [facility] [address] [place], [address] Neutrophils/100 WBC (Bld) 89.8 % High 47-70 [facility] Comment on above: Performed By: #### L 100.0100, L500.2500 #### [facility] [address] [place], [address] Nucleated RBC (Bld) [#/Vol] 0 10*3/uL Normal 0-5 [facility] Comment on above: Performed By: #### L 100.0100, L500.2500 #### [facility] [address] [place], [address] Platelet mean volume (Bld) [Entitic vol] 11.5 fL Normal 6.2-12.0 [facility] Comment on above: Performed By: #### L 100.0100, L500.2500 #### [facility] [address] [place], [address] Platelets (Bld) [#/Vol] 165 10*3/uL Normal 150-450 [facility] Comment on above: Performed By: #### L 100.0100, L500.2500 #### [facility] [address] [place], [address] RBC (Bld) [#/Vol] 4.72 10*6/uL Normal 4.6-6.2 [facility] Comment on above: Performed By: #### L 100.0100, L500.2500 #### [facility] [address] [place], [address] RDW SD 55.7 fl High 35.1-43.9 [facility] Comment on above: Performed By: #### L 100.0100, L500.2500 #### [facility] [address] [place], [address] WBC (Bld) [#/Vol] 12.6 10*3/uL High 4.4-11.0 [facility] Comment on above: Performed By: #### L 100.0100, L500.2500 #### [facility] [address] [place], [address] Respiratory Cultureon 2024 RESPC Mixed normal respira tory argenis. No Haemophilus, Streptococcus pneumoniae, beta-hemolytic Streptococcus or Staphylococcus aureus isolated. Normal [facility] Comment on above: Performed By: #### M 100.2400, M100.2000 ####[facility] [address] [place], [address] CBC W/Diff, Automatedon 08-30 Absolute Lymph 0.43 X10 3/uL Low 0.83-4.51 [facility] Comment on above: Performed By: #### L 100.0100 #### [facility] [address] [place], [address] Absolute Neut 11.6 X10 3/uL High 2.0-7.7 [facility] Comment on above: Performed By: #### L 100.0100 #### [facility] [address] [place], [address] Basophils/100 WBC (Bld) 0.1 % Normal 0-1 [facility] Comment on above: Performed By: #### L 100.0100 #### [facility] [address] [place], [address] Eosinophils/100 WBC (Bld) 0.0 % Normal 0-5 [facility] Comment on above: Performed By: #### L 100.0100 #### [facility] [address] [place], [address] Erythrocyte distribution width (RBC) [Ratio] 16.1 % High 11.6-14.6 [facility] Comment on above: Performed By: #### L 100.0100 #### [facility] [address] [place], [address] Hematocrit (Bld) [Volume fraction] 44.9 % Normal 40-54 [facility] Comment on above: Performed By: #### L 100.0100 #### [facility] [address] [place], [address] Hemoglobin (Bld) [Mass/Vol] 14.8 g/dL Normal 13.0-16.5 [facility] Comment on above: Performed By: #### L 100.0100 #### [facility] [address] [place], [address] IG% 1.600 High 0.0-0.9 [facility] Comment on above: Result Comment: IG% - Immature Granulocytes (promyelocytes, myelocytes and metamyelocytes) > 1% indicates that a LEFT SHIFT is Present. Performed By: #### L 100.0100 #### [facility] [address] [place], [address] Lymphocytes/100 WBC (Bld) 3.4 % Low 19-41 [facility] Comment on above: Performed By: #### L 100.0100 #### [facility] [address] [place], [address] MCH (RBC) [Entitic mass] 31.5 pg Normal 27.0-32.0 [facility] Comment on above: Performed By: #### L 100.0100 #### [facility] [address] [place], [address] MCHC (RBC) [Mass/Vol] 33.0 g/dL Normal 32-36 [facility] Comment on above: Performed By: #### L 100.0100 #### [facility] [address] [place], [address] MCV (RBC) [Entitic vol] 95.5 fL High 80-94 [facility] Comment on above: Performed By: #### L 100.0100 #### [facility] [address] [place], [address] Monocytes/100 WBC (Bld) 4.1 % Normal 0-10 [facility] Comment on above: Performed By: #### L 100.0100 #### [facility] [address] [place], [address] Neutrophils/100 WBC (Bld) 90.8 % High 47-70 [facility] Comment on above: Performed By: #### L 100.0100 #### [facility] [address] [place], [address] Nucleated RBC (Bld) [#/Vol] 0 10*3/uL Normal 0-5 [facility] Comment on above: Performed By: #### L 100.0100 #### [facility] [address] [place], [address] Platelet mean volume (Bld) [Entitic vol] 11.3 fL Normal 6.2-12.0 [facility] Comment on above: Performed By: #### L 100.0100 #### [facility] [address] [place], [address] Platelets (Bld) [#/Vol] 156 10*3/uL Normal 150-450 [facility] Comment on above: Performed By: #### L 100.0100 #### [facility] [address] [place], [address] RBC (Bld) [#/Vol] 4.70 10*6/uL Normal 4.6-6.2 [facility] Comment on above: Performed By: #### L 100.0100 #### [facility] [address] [place], [address] RDW SD 57.0 fl High 35.1-43.9 [facility] Comment on above: Performed By: #### L 100.0100 #### [facility] [address] [place], [address] WBC (Bld) [#/Vol] 12.8 10*3/uL High 4.4-11.0 [facility] Comment on above: Performed By: #### L 100.0100 #### [facility] [address] [place], [address] Basic Metabolic Profile (BMP )on 09-10-2024 BUN/CRE 37.5 RATIO High 10-20 [facility] Comment on above: Performed By: #### L 100.0100, L500.2500 #### [facility] [address] [place], [address] CA,Total 8.9 mg/dL Normal 8.5-10.1 [facility] Comment on above: Performed By: #### L 100.0100, L500.2500 #### [facility] [address] [place], [address] Chloride [Moles/Vol] 111 mmol/L High 98-107 [facility] Comment on above: Performed By: #### L 100.0100, L500.2500 #### [facility] [address] [place], [address] CO2 [Moles/Vol] 27.0 mmol/L Normal 21.0-32.0 [facility] Comment on above: Performed By: #### L 100.0100, L500.2500 #### [facility] [address] [place], [address] Creatinine [Mass/Vol] 0.77 mg/dL Normal 0.70-1.30 [facility] Comment on above: Result Comment: The validity of the calculated GFR GFRAA in patients over 70 years has not been determined. Clinical correlation is essential. Performed By: #### L 100.0100, L500.2500 #### [facility] [address] [place], [address] ECRCL 67.03 ml/min Normal [facility] Comment on above: Performed By: #### L 100.0100, L500.2500 #### [facility] [address] [place], [address] EST GFR - AA 122 mL/min Normal >60 [facility] Comment on above: Result Comment: Afri can Citizen [place] GFR Calc Performed By: #### L 100.0100, L500.2500 #### [facility] [address] [place], [address] GAP 5 Normal 5-15 [facility] Comment on above: Performed By: #### L 100.0100, L500.2500 #### [facility] [address] [place], [address] GFR/1.73 sq M.predicted among non-blacks MDRD (S/P/Bld) [Vol rate/Area] 101 mL/min/{1.73_m2} Normal >60 [facility] Comment on above: Result Comment: Non- GFR Calc Performed By: #### L 100.0100, L500.2500 #### [facility] [address] [place], [address] Glucose [Mass/Vol] 132 mg/dL High 74-106 [facility] Comment on above: Result Comment: Fast ing Glucose result greater than or equal to 126 mg/dL suggests DIABETES MELLITUS per A.D.A. criteria. Performed By: #### L 100.0100, L500.2500 #### [facility] [address] [place], [address] Potassium [Moles/Vol] 3.7 mmol/L Normal 3.5-5.1 [facility] Comment on above: Performed By: #### L 100.0100, L500.2500 #### [facility] [address] [place], [address] Sodium [Moles/Vol] 142 mmol/L Normal 136-145 [facility] Comment on above: Performed By: #### L 100.0100, L500.2500 #### [facility] [address] [place], [address] Urea nitrogen [Mass/Vol] 29 mg/dL High 7-18 [facility] Comment on above: Performed By: #### L 100.0100, L500.2500 #### [facility] [address] [place], [address] CBC W/Diff, Automatedon 08-30 Absolute Lymph 0.39 X10 3/uL Low 0.83-4.51 [facility] Comment on above: Performed By: #### L 100.0100, L500.2500 #### [facility] [address] [place], [address] Absolute Neut 10.7 X10 3/uL High 2.0-7.7 [facility] Comment on above: Performed By: #### L 100.0100, L500.2500 #### [facility] [address] [place], [address] Basophils/100 WBC (Bld) 0.2 % Normal 0-1 [facility] Comment on above: Performed By: #### L 100.0100, L500.2500 #### [facility] [address] [place], [address] Eosinophils/100 WBC (Bld) 0.0 % Normal 0-5 [facility] Comment on above: Performed By: #### L 100.0100, L500.2500 #### [facility] [address] [place], [address] Erythrocyte distribution width (RBC) [Ratio] 16.5 % High 11.6-14.6 [facility] Comment on above: Performed By: #### L 100.0100, L500.2500 #### [facility] [address] [place], [address] Hematocrit (Bld) [Volume fraction] 43.4 % Normal 40-54 [facility] Comment on above: Performed By: #### L 100.0100, L500.2500 #### [facility] [address] [place], [address] Hemoglobin (Bld) [Mass/Vol] 14.7 g/dL Normal 13.0-16.5 [facility] Comment on above: Performed By: #### L 100.0100, L500.2500 #### [facility] [address] [place], [address] IG% 1.200 High 0.0-0.9 [facility] Comment on above: Result Comment: IG% - Immature Granulocytes (promyelocytes, myelocytes and metamyelocytes) > 1% indicates that a LEFT SHIFT is Present. Performed By: #### L 100.0100, L500.2500 #### [facility] [address] [facility] [place], [address] Lymphocytes/100 WBC (Bld) 3.3 % Low 19-41 [facility] Comment on above: Performed By: #### L 100.0100, L500.2500 #### [facility] [address] [place], [address] MCH (RBC) [Entitic mass] 32.3 pg High 27.0-32.0 [facility] Comment on above: Performed By: #### L 100.0100, L500.2500 #### [facility] [address] [place], [address] MCHC (RBC) [Mass/Vol] 33.9 g/dL Normal 32-36 [facility] Comment on above: Performed By: #### L 100.0100, L500.2500 #### [facility] [address] [place], [address] MCV (RBC) [Entitic vol] 95.4 fL High 80-94 [facility] Comment on above: Performed By: #### L 100.0100, L500.2500 #### [facility] [address] [place], [address] Monocytes/100 WBC (Bld) 4.3 % Normal 0-10 [facility] Comment on above: Performed By: #### L 100.0100, L500.2500 #### [facility] [address] [place], [address] Neutrophils/100 WBC (Bld) 91.0 % High 47-70 [facility] Comment on above: Performed By: #### L 100.0100, L500.2500 #### [facility] [address] [place], [address] Nucleated RBC (Bld) [#/Vol] 0 10*3/uL Normal 0-5 [facility] Comment on above: Performed By: #### L 100.0100, L500.2500 #### [facility] [address] [place], [address] Platelet mean volume (Bld) [Entitic vol] 11.9 fL Normal 6.2-12.0 [facility] Comment on above: Performed By: #### L 100.0100, L500.2500 #### [facility] [address] [place], [address] Platelets (Bld) [#/Vol] 166 10*3/uL Normal 150-450 [facility] Comment on above: Performed By: #### L 100.0100, L500.2500 #### [facility] [address] [place], [address] RBC (Bld) [#/Vol] 4.55 10*6/uL Low 4.6-6.2 [facility] Comment on above: Performed By: #### L 100.0100, L500.2500 #### [facility] [address] [place], [address] RDW SD 57.2 fl High 35.1-43.9 [facility] Comment on above: Performed By: #### L 100.0100, L500.2500 #### [facility] [address] [place], [address] WBC (Bld) [#/Vol] 11.8 10*3/uL High 4.4-11.0 [facility] Comment on above: Performed By: #### L 100.0100, L500.2500 #### [facility] [address] [place], [address] Gram Stainon 09-10-2024 GS Acceptable Specimen? Yes (<25 Epithelial cells per/lpf) Gram Stain 2+ Gram positive cocci 2+ Gram positive rods 1+ Red Blood Cells 1+ White Blood Cells 1+ Epithelial cells Normal [facility] Comment on above: Performed By: #### M 100.2400, M100.2000 ####[facility] [address] [place], [address] Basic Metabolic Profile (BMP )on 09-09-2024 BUN/CRE 35.1 RATIO High 10-20 [facility] Comment on above: Performed By: #### L 100.0100, L500.2500 #### [facility] [address] [place], [address] CA,Total 8.4 mg/dL Low 8.5-10.1 [facility] Comment on above: Performed By: #### L 100.0100, L500.2500 #### [facility] [address] [place], [address] Chloride [Moles/Vol] 107 mmol/L Normal 98-107 [facility] Comment on above: Performed By: #### L 100.0100, L500.2500 #### [facility] [address] [place], [address] CO2 [Moles/Vol] 24.0 mmol/L Normal 21.0-32.0 [facility] Comment on above: Performed By: #### L 100.0100, L500.2500 #### [facility] [address] [place], [address] Creatinine [Mass/Vol] 0.94 mg/dL Normal 0.70-1.30 [facility] Comment on above: Result Comment: The validity of the calculated GFR GFRAA in patients over 70 years has not been determined. Clinical correlation is essential. Performed By: #### L 100.0100, L500.2500 #### [facility] [address] [place], [address] ECRCL 57.13 ml/min Normal [facility] Comment on above: Performed By: #### L 100.0100, L500.2500 #### [facility] [address] [place], [address] EST GFR - AA 98 mL/min Normal >60 [facility] Comment on above: Result Comment: Afri can [place] GFR Calc Performed By: #### L 100.0100, L500.2500 #### [facility] [address] [place], [address] GAP 8 Normal 5-15 [facility] Comment on above: Performed By: #### L 100.0100, L500.2500 #### [facility] [address] [place], [address] GFR/1.73 sq M.predicted among non-blacks MDRD (S/P/Bld) [Vol rate/Area] 81 mL/min/{1.73_m2} Normal >60 [facility] Comment on above: Result Comment: Non- GFR Calc Performed By: #### L 100.0100, L500.2500 #### [facility] [address] [place], [address] Glucose [Mass/Vol] 146 mg/dL High 74-106 [facility] Comment on above: Result Comment: Fast ing Glucose result greater than or equal to 126 mg/dL suggests DIABETES MELLITUS per A.D.A. criteria. Performed By: #### L 100.0100, L500.2500 #### [facility] [address] [place], [address] Potassium [Moles/Vol] 3.2 mmol/L Low 3.5-5.1 [facility] Comment on above: Performed By: #### L 100.0100, L500.2500 #### [facility] [address] [place], [address] Sodium [Moles/Vol] 139 mmol/L Normal 136-145 [facility] Comment on above: Performed By: #### L 100.0100, L500.2500 #### [facility] [address] [place], [address] Urea nitrogen [Mass/Vol] 33 mg/dL High 7-18 [facility] Comment on above: Performed By: #### L 100.0100, L500.2500 #### [facility] [address] [place], [address] CBC W/Diff, Automatedon 08-30 Absolute Lymph 0.57 X10 3/uL Low 0.83-4.51 [facility] Comment on above: Performed By: #### L 100.0100, L500.2500 #### [facility] [address] [place], [address] Absolute Neut 15.4 X10 3/uL High 2.0-7.7 [facility] Comment on above: Performed By: #### L 100.0100, L500.2500 #### [facility] [address] [place], [address] Basophils/100 WBC (Bld) 0.1 % Normal 0-1 [facility] Comment on above: Performed By: #### L 100.0100, L500.2500 #### [facility] [address] [place], [address] Eosinophils/100 WBC (Bld) 0.0 % Normal 0-5 [facility] Comment on above: Performed By: #### L 100.0100, L500.2500 #### [facility] [address] [place], [address] Erythrocyte distribution width (RBC) [Ratio] 16.6 % High 11.6-14.6 [facility] Comment on above: Performed By: #### L 100.0100, L500.2500 #### [facility] [address] [place], [address] Hematocrit (Bld) [Volume fraction] 43.3 % Normal 40-54 [facility] Comment on above: Performed By: #### L 100.0100, L500.2500 #### [facility] [address] [place], [address] Hemoglobin (Bld) [Mass/Vol] 14.4 g/dL Normal 13.0-16.5 [facility] Comment on above: Performed By: #### L 100.0100, L500.2500 #### [facility] [address] [place], [address] IG% 0.700 Normal 0.0-0.9 [facility] Comment on above: Result Comment: IG% - Immature Granulocytes (promyelocytes, myelocytes and metamyelocytes) > 1% indicates that a LEFT SHIFT is Present. Performed By: #### L 100.0100, L500.2500 #### [facility] [address] [place], [address] Lymphocytes/100 WBC (Bld) 3.3 % Low 19-41 [facility] Comment on above: Performed By: #### L 100.0100, L500.2500 #### [facility] [address] [place], [address] MCH (RBC) [Entitic mass] 31.4 pg Normal 27.0-32.0 [facility] Comment on above: Performed By: #### L 100.0100, L500.2500 #### [facility] [address] [place], [address] MCHC (RBC) [Mass/Vol] 33.3 g/dL Normal 32-36 [facility] Comment on above: Performed By: #### L 100.0100, L500.2500 #### [facility] [address] [place], [address] MCV (RBC) [Entitic vol] 94.5 fL High 80-94 [facility] Comment on above: Performed By: #### L 100.0100, L500.2500 #### [facility] [address] [place], [address] Monocytes/100 WBC (Bld) 7.2 % Normal 0-10 [facility] Comment on above: Performed By: #### L 100.0100, L500.2500 #### [facility] [address] [place], [address] Neutrophils/100 WBC (Bld) 88.7 % High 47-70 [facility] Comment on above: Performed By: #### L 100.0100, L500.2500 #### [facility] [address] [place], [address] Nucleated RBC (Bld) [#/Vol] 0 10*3/uL Normal 0-5 [facility] Comment on above: Performed By: #### L 100.0100, L500.2500 #### [facility] [address] [place], [address] Platelet mean volume (Bld) [Entitic vol] 11.4 fL Normal 6.2-12.0 [facility] Comment on above: Performed By: #### L 100.0100, L500.2500 #### [facility] [address] [place], [address] Platelets (Bld) [#/Vol] 178 10*3/uL Normal 150-450 [facility] Comment on above: Performed By: #### L 100.0100, L500.2500 #### [facility] [address] [place], [address] RBC (Bld) [#/Vol] 4.58 10*6/uL Low 4.6-6.2 [facility] Comment on above: Performed By: #### L 100.0100, L500.2500 #### [facility] [address] [place], [address] RDW SD 56.1 fl High 35.1-43.9 [facility] Comment on above: Performed By: #### L 100.0100, L500.2500 #### [facility] [address] [place], [address] WBC (Bld) [#/Vol] 17.4 10*3/uL High 4.4-11.0 [facility] Comment on above: Performed By: #### L 100.0100, L500.2500 #### [facility] [address] [place], [address] [facility] ([facility]) CLARK LYLES ([id number]) 1935 M Date Time Provider Department 09/09/24 BRIGITTE SEGAL [facility] During your visit today, we recorded the following information about you: Brigitte Segal APRN.JANET 09/09/2024 10:05 AM Signed Patient was admitted to [facility] on September 07 to 2024 for [...] Date Reviewed: 03/27/2024 Reviewed by: Brigitte Segal APRN.FIELD MARKETING MANAGER - Fully Assessed Prescriptions as of [...] Meds Comments as of 04/18/2021: Taking Saw [place]. Problem List As Of Date 09/09/2024 Noted Resolved BENIGN HYPERTENSION [I10] 01/08/2006 Anxiety state [F41.1] 01/05/2009 GERD (gastroesophageal reflux disease) [K21.9] 01/10/2011 BPH (benign prostatic hyperplasia) [N40.0] 03/17/2013 PAD (peripheral artery disease) ([facility]) [I73.9] 02/28/2014 Hyperlipidemia LDL goal <100 [E78.5] 03/28/2016 Hyperbilirubinemia [E80.6] 05/10/2016 Parkinson's disease (HCC) [G20.A1] 07/11/2017 Angina pectoris (HCC) [I20.9] 08/25/2019 Restless legs syndrome [G25.81] 01/27/2020 Iron deficiency anemia due to chronic blood los*01/27/2020 Coronary artery disease involving apache rabago*12/22/2020 S/P primary angioplasty with coronary stent [Z9*12/22/2020 Fall from standing [W19.XXXA] 09/20/2021 Encounter for support and coordination of trans*08/11/2023 Acute respiratory failure with hypoxia (HCC) [J*09/25/2023 Encounter Status:Closed by BRIGITTE SEGAL on 09/09/24 Normal [facility] Gram stainOrdered By: Lester stein on 09-09-2024 Microscopic observation Gram stain Nom (Unsp spec) [facility] Legionella Antigen Urineon 0 09-09-2024 LEGU URINE, CLEAN CATCH Legionella Antigen result interpretation: L pneumo Ag Ur Ql Negative Presumptive negative for Legionella pneumophila serogroup 1 antigen in urine, suggesting no recent or current infection. Legionella Ag, Urine Negative (See interpretation below) Normal [facility] Comment on above: Performed By: #### L 100.0100, L500.2500 #### [facility] [address] [facility] [place], [address] Microbial respiratory cultur eOrdered By: Lester Perdomo on 09-09-2024 Microorganism identified Cx Nom (Unsp spec) [facility] Strep pneumoniae Antig(UR,CS F)on 09-09-2024 STPAG URINE INTERPRETATION Strep pneumoniae Antig(UR,CSF) Negative Urine Presumptive negative for pneumococcal pneumonia, suggesting no current or recent pneumococcal infection. Infection due to S pneumoniae cannot be ruled out since the antigen present in the sample may be below the detection limit of the test. Strep pneumo Test Negative URINE (See interpretation below) Normal [facility] Comment on above: Performed By: #### L 100.0100, L500.2500 #### [facility] [address] [facility] [place], [address] Urine Legionella pneumophila antigen detectionOrdered By: Lester Perdomo on 09-09-2024 L. pneumophila Ag Ql (U) [facility] Abdomen Single Viewon 2024 Abdomen Single View [facility] [address] [place] [address] Abdomen Single View MR#: [id number] Acct: [id number] Name: CLARK LYLES Rep #: [id number] : 1935 M 88 [facility]: Brigitte Segal, PHOTO FINISH PHOTOGRAPHER Status: ADM IN Study: Abdomen Single View Date of Exam: 09/08/24 Exam# [id number] Ordering Dr: Lester Perdomo DO PROCEDURE: ABDOMEN [...] right inferior pubic ramus bone. Reading [facility] Brigitte Segal; Dr. Lester Perdomo DO [employer] Teacher: Signed Normal [facility] Basic Metabolic Profile (BMP )on 09-08-2024 BUN/CRE 33.0 RATIO High 10-20 [facility] Comment on above: Performed By: #### L 500.2500, L501.5200, L100.0100, L501.2300 ####[facility] [address] [place], [address] CA,Total 8.6 mg/dL Normal 8.5-10.1 [facility] Comment on above: Performed By: #### L 500.2500, L501.5200, L100.0100, L501.2300 ####[facility] [address] [place], [address] Chloride [Moles/Vol] 106 mmol/L Normal 98-107 [facility] Comment on above: Performed By: #### L 500.2500, L501.5200, L100.0100, L501.2300 ####[facility] [address] [place], [address] CO2 [Moles/Vol] 22.0 mmol/L Normal 21.0-32.0 [facility] Comment on above: Performed By: #### L 500.2500, L501.5200, L100.0100, L501.2300 ####[facility] [address] [place], [address] Creatinine [Mass/Vol] 0.82 mg/dL Normal 0.70-1.30 [facility] Comment on above: Result Comment: The validity of the calculated GFR GFRAA in patients over 70 years has not been determined. Clinical correlation is essential. Performed By: #### L 500.2500, L501.5200, L100.0100, L501.2300 ####[facility] [address] [place], [address] ECRCL 66.59 ml/min Normal [facility] Comment on above: Performed By: #### L 500.2500, L501.5200, L100.0100, L501.2300 ####[facility] [address] [place], [address] EST GFR - AA 115 mL/min Normal >60 [facility] Comment on above: Result Comment: Afri can [place] GFR Calc Performed By: #### L 500.2500, L501.5200, L100.0100, L501.2300 ####[facility] [address] [place], [address] GAP 11 Normal 5-15 [facility] Comment on above: Performed By: #### L 500.2500, L501.5200, L100.0100, L501.2300 ####[facility] [address] [place], [address] GFR/1.73 sq M.predicted among non-blacks MDRD (S/P/Bld) [Vol rate/Area] 95 mL/min/{1.73_m2} Normal >60 [facility] Comment on above: Result Comment: Non- GFR Calc Performed By: #### L 500.2500, L501.5200, L100.0100, L501.2300 ####[facility] [address] [place], [address] Glucose [Mass/Vol] 150 mg/dL High 74-106 [facility] Comment on above: Result Comment: Fast ing Glucose result greater than or equal to 126 mg/dL suggests DIABETES MELLITUS per A.D.A. criteria. Performed By: #### L 500.2500, L501.5200, L100.0100, L501.2300 ####[facility] [address] [place], [address] Potassium [Moles/Vol] 3.2 mmol/L Low 3.5-5.1 [facility] Comment on above: Performed By: #### L 500.2500, L501.5200, L100.0100, L501.2300 ####[facility] [address] [place], [address] Sodium [Moles/Vol] 138 mmol/L Normal 136-145 [facility] Comment on above: Performed By: #### L 500.2500, L501.5200, L100.0100, L501.2300 ####[facility] [address] [place], [address] Urea nitrogen [Mass/Vol] 27 mg/dL High 7-18 [facility] Comment on above: Performed By: #### L 500.2500, L501.5200, L100.0100, L501.2300 ####[facility] [address] [place], [address] CBC W/Diff, Automatedon 02-1 0-2024 Absolute Lymph 0.32 X10 3/uL Low 0.83-4.51 [facility] Comment on above: Performed By: #### L 500.2500, L501.5200, L100.0100, L501.2300 #### [facility] [address] [place], [address] Absolute Neut 7.4 X10 3/uL Normal 2.0-7.7 [facility] Comment on above: Performed By: #### L 500.2500, L501.5200, L100.0100, L501.2300 #### [facility] [address] [place], [address] Basophils/100 WBC (Bld) 0.1 % Normal 0-1 [facility] Comment on above: Performed By: #### L 500.2500, L501.5200, L100.0100, L501.2300 #### [facility] [address] [place], [address] Eosinophils/100 WBC (Bld) 0.0 % Normal 0-5 [facility] Comment on above: Performed By: #### L 500.2500, L501.5200, L100.0100, L501.2300 #### [facility] [address] [place], [address] Erythrocyte distribution width (RBC) [Ratio] 16.0 % High 11.6-14.6 [facility] Comment on above: Performed By: #### L 500.2500, L501.5200, L100.0100, L501.2300 #### [facility] [address] [place], [address] Hematocrit (Bld) [Volume fraction] 42.9 % Normal 40-54 [facility] Comment on above: Performed By: #### L 500.2500, L501.5200, L100.0100, L501.2300 #### [facility] [address] [place], [address] Hemoglobin (Bld) [Mass/Vol] 15.4 g/dL Normal 13.0-16.5 [facility] Comment on above: Performed By: #### L 500.2500, L501.5200, L100.0100, L501.2300 #### [facility] [address] [place], [address] IG% 0.800 Normal 0.0-0.9 [facility] Comment on above: Result Comment: IG% - Immature Granulocytes (promyelocytes, myelocytes and metamyelocytes) > 1% indicates that a LEFT SHIFT is Present. Performed By: #### L 500.2500, L501.5200, L100.0100, L501.2300 #### [facility] [address] [place], [address] Lymphocytes/100 WBC (Bld) 4.1 % Low 19-41 [facility] Comment on above: Performed By: #### L 500.2500, L501.5200, L100.0100, L501.2300 #### [facility] [address] [place], [address] MCH (RBC) [Entitic mass] 33.1 pg High 27.0-32.0 [facility] Comment on above: Performed By: #### L 500.2500, L501.5200, L100.0100, L501.2300 #### [facility] [address] [place], [address] MCHC (RBC) [Mass/Vol] 35.9 g/dL Normal 32-36 [facility] Comment on above: Performed By: #### L 500.2500, L501.5200, L100.0100, L501.2300 #### [facility] [address] [place], [address] MCV (RBC) [Entitic vol] 92.3 fL Normal 80-94 [facility] Comment on above: Performed By: #### L 500.2500, L501.5200, L100.0100, L501.2300 #### [facility] [address] [place], [address] Monocytes/100 WBC (Bld) 2.0 % Normal 0-10 [facility] Comment on above: Performed By: #### L 500.2500, L501.5200, L100.0100, L501.2300 #### [facility] [address] [place], [address] Neutrophils/100 WBC (Bld) 93.0 % High 47-70 [facility] Comment on above: Performed By: #### L 500.2500, L501.5200, L100.0100, L501.2300 #### [facility] [address] [place], [address] Nucleated RBC (Bld) [#/Vol] 0 10*3/uL Normal 0-5 [facility] Comment on above: Performed By: #### L 500.2500, L501.5200, L100.0100, L501.2300 #### [facility] [address] [place], [address] Platelet mean volume (Bld) [Entitic vol] 11.6 fL Normal 6.2-12.0 [facility] Comment on above: Performed By: #### L 500.2500, L501.5200, L100.0100, L501.2300 #### [facility] [address] [place], [address] Platelets (Bld) [#/Vol] 183 10*3/uL Normal 150-450 [facility] Comment on above: Performed By: #### L 500.2500, L501.5200, L100.0100, L501.2300 #### [facility] [address] [place], [address] RBC (Bld) [#/Vol] 4.65 10*6/uL Normal 4.6-6.2 [facility] Comment on above: Performed By: #### L 500.2500, L501.5200, L100.0100, L501.2300 #### [facility] [address] [place], [address] RDW SD 52.6 fl High 35.1-43.9 [facility] Comment on above: Performed By: #### L 500.2500, L501.5200, L100.0100, L501.2300 #### [facility] [address] [place], [address] WBC (Bld) [#/Vol] 7.9 10*3/uL Normal 4.4-11.0 [facility] Comment on above: Performed By: #### L 500.2500, L501.5200, L100.0100, L501.2300 #### [facility] [address] [place], [address] CTA Chest W/WO Contraston CTA Chest W/WO Contrast [facility] Imaging Services [address] [place] [address] CTA Chest W/WO Contrast MR#: [id number] Acct: [id number] Name: CLARK LYLES Rep #: [id number] : 1935 M 88 From: Jose araujo MD PCP: Brigitte Segal, PHOTO FINISH PHOTOGRAPHER Status: ADM IN Study: CTA Chest W/WO Contrast Date of Exam: 09/08/24 Exam# [id number] Ordering Dr: Lester Perdomo DO PROCEDURE: CTA [...] use of iterative reconstruction technique). Reading Location: [place] [address] CC: PHOTO FINISH PHOTOGRAPHER Brigitte Segal; Dr. Lester Perdomo DO [employer] Teacher: Signed Normal [facility] Echo, Limited Studyon 2024 Echo, Limited Study [facility] [address] [place] [address] Echo, Limited Study 09/08/24 1446 MR#: [id number] Acct: [id number] Name: CLARK LYLES Rep #: [id number] : 1935 88 From: Dejuan Brooks MD Attending Dr: Dr. Lester Perdomo DO Status: ADM IN Ordering Dr: Lester Perdomo DO Date: 09/08/24 Location: [facility] Sex: M C Admitted: 09/07/24 Reason For Study ECHO/Echo, Limited Study Interpretation Summary Normal LV size. Left ventricular systolic function is normal. The left ventricular ejection fraction is 55 %. Pulmonary artery systolic pressure is 86 mmHg. Severe pulmonary hypertension. Moderately severe (3+) tricuspid valve insufficiency. Ordering Physician: Lester Perdomo Referring Physician: BRIGITTE ESGAL Performed By: Cynthia Alonzo RCS 09/09/24 0834 Date Dejuan Brooks MD CC: MARIANA Segal; Dr. Lester Perdomo DO Date Dictated: 09/08/24 1446 Date Transcribed: 09/09/24 0834 [employer] Teacher: Signed Normal [facility] Magnesiumon 09-08-2024 Magnesium [Mass/Vol] 1.8 mg/dL Normal 1.6-2.6 [facility] Comment on above: Performed By: #### L 500.2500, L501.5200, L100.0100, L501.2300 ####[facility] [address] [facility] [place], [address] Magnesium measurementOrdered By: Jerrell Faith on 09-08-2024 Magnesium [Mass/Vol] 1.8 mg/dL 1.6-2.6 [facility] Phosphoruson 09-08-2024 Phosphate [Mass/Vol] 3.9 mg/dL Normal 2.5-4.9 [facility] Comment on above: Performed By: #### L 500.2500, L501.5200, L100.0100, L501.2300 ####[facility] [address] [facility] [place], [address] 12 Lead EKGon 09-07-2024 12 Lead EKG [facility] [address] [place] [address] 12 Lead EKG 09/07/24 1105 MR#: [id number] Acct: [id number] Name: CLARK LYLES Rep #: [id number] : 1935 88 From: Dejuan Brooks MD Attending Dr: Dr. Lester Perdomo DO Status: ADM IN Ordering Dr: Neo Tejeda DO Date: 09/07/24 Location: [facility] Sex: M C Admitted: 09/07/24 [...] normal ECG Confirmed by DEJUAN BROOKS MD ([id number]), publication editor FARSHAD PANDYA ([id number]) on 09/08/2024 11:07:09 AM Referred By: Confirmed By: DEJUAN BROOKS MD 09/08/24 1107 Date Dejuan Brooks MD CC: MARIANA Segal; Dr. Lester Perdomo DO; Dr. Neo Tejeda DO Signed Normal [facility] Activated partial thrombopla stin time (aPTT) in platelet poor plasma by coagulation aOrdered By: Neo Tejeda on 09-07-2024 aPTT Coag (PPP) [Time] 26.5 s 24.1-36.2 [facility] Assessment of wrist artery p atency prior to arterial punctureOrdered By: Neo Tejeda on 09-07-2024 Arterial patency Wrist artery --pre arterial puncture Positive [facility] BNP (brain natriuretic pepti de measurement)Ordered By: Neo Tejeda on 09-07-2024 Natriuretic peptide B (Bld) [Mass/Vol] 221.1 pg/mL High 0-100 [facility] BNP,B-Type NATRIURETIC PEPTI Giovanni 09-07-2024 Natriuretic peptide B (Bld) [Mass/Vol] 221.1 pg/mL High 0-100 [facility] Comment on above: Performed By: #### L 503.6620 ####[facility] [address] [place], [place], [id number] Basic Metabolic Profile (BMP )on 09-07-2024 BUN/CRE 19.2 RATIO Normal 10-20 [facility] Comment on above: Order Comment: 'TROP ' Serial specimen #1, #2 or #3: 1 Performed By: #### L 500.2500, L501.4020, L100.0100, L300.3900, L300.4310 ####[facility] [address] [place], [address] CA,Total 8.7 mg/dL Normal 8.5-10.1 [facility] Comment on above: Order Comment: 'TROP ' Serial specimen #1, #2 or #3: 1 Performed By: #### L 500.2500, L501.4020, L100.0100, L300.3900, L300.4310 ####[facility] [address] [place], [address] Chloride [Moles/Vol] 104 mmol/L Normal 98-107 [facility] Comment on above: Order Comment: 'TROP ' Serial specimen #1, #2 or #3: 1 Performed By: #### L 500.2500, L501.4020, L100.0100, L300.3900, L300.4310 ####[facility] [address] [place], [address] CO2 [Moles/Vol] 18.0 mmol/L Low 21.0-32.0 [facility] Comment on above: Order Comment: 'TROP ' Serial specimen #1, #2 or #3: 1 Performed By: #### L 500.2500, L501.4020, L100.0100, L300.3900, L300.4310 ####[facility] [address] [place], [address] Creatinine [Mass/Vol] 1.04 mg/dL Normal 0.70-1.30 [facility] Comment on above: Order Comment: 'TROP ' Serial specimen #1, #2 or #3: 1 Result Comment: The validity of the calculated GFR GFRAA in patients over 70 years has not been determined. Clinical correlation is essential. Performed By: #### L 500.2500, L501.4020, L100.0100, L300.3900, L300.4310 ####[facility] [address] [place], [address] ECRCL 49.04 ml/min Normal [facility] Comment on above: Order Comment: 'TROP ' Serial specimen #1, #2 or #3: 1 Performed By: #### L 500.2500, L501.4020, L100.0100, L300.3900, L300.4310 ####[facility] [address] [place], [address] EST GFR - AA 87 mL/min Normal >60 [facility] Comment on above: Order Comment: 'TROP ' Serial specimen #1, #2 or #3: 1 Result Comment: Afri can [place] GFR Calc Performed By: #### L 500.2500, L501.4020, L100.0100, L300.3900, L300.4310 ####[facility] [address] [place], [address] GAP 16 High 5-15 [facility] Comment on above: Order Comment: 'TROP ' Serial specimen #1, #2 or #3: 1 Performed By: #### L 500.2500, L501.4020, L100.0100, L300.3900, L300.4310 ####[facility] [address] [place], [address] GFR/1.73 sq M.predicted among non-blacks MDRD (S/P/Bld) [Vol rate/Area] 72 mL/min/{1.73_m2} Normal >60 [facility] Comment on above: Order Comment: 'TROP ' Serial specimen #1, #2 or #3: 1 Result Comment: Non- GFR Calc Performed By: #### L 500.2500, L501.4020, L100.0100, L300.3900, L300.4310 ####[facility] [address] [place], [address] Glucose [Mass/Vol] 77 mg/dL Normal 74-106 [facility] Comment on above: Order Comment: 'TROP ' Serial specimen #1, #2 or #3: 1 Performed By: #### L 500.2500, L501.4020, L100.0100, L300.3900, L300.4310 ####[facility] [address] [place], [address] Potassium [Moles/Vol] 3.3 mmol/L Low 3.5-5.1 [facility] Comment on above: Order Comment: 'TROP ' Serial specimen #1, #2 or #3: 1 Performed By: #### L 500.2500, L501.4020, L100.0100, L300.3900, L300.4310 ####[facility] [address] [place], [address] Sodium [Moles/Vol] 138 mmol/L Normal 136-145 [facility] Comment on above: Order Comment: 'TROP ' Serial specimen #1, #2 or #3: 1 Performed By: #### L 500.2500, L501.4020, L100.0100, L300.3900, L300.4310 ####[facility] [address] [place], [address] Urea nitrogen [Mass/Vol] 20 mg/dL High 7-18 [facility] Comment on above: Order Comment: 'TROP ' Serial specimen #1, #2 or #3: 1 Performed By: #### L 500.2500, L501.4020, L100.0100, L300.3900, L300.4310 ####[facility] [address] [place], [address] Bilirubin Test strip Ql (U)O rdered By: Neo Tejeda on 09-07-2024 Bilirubin Ql (U) Negative Negative [facility] Blood Gases by CPSon 025 MAGUI TEST Positive Normal [facility] Comment on above: Performed By: #### L 100.0100, L500.2500 #### [facility] [address] [place], [address] Base excess Calc (Bld) [Moles/Vol] -8 mmol/L Low -2 to +2 [facility] Comment on above: Performed By: #### L 100.0100, L500.2500 #### [facility] [address] [place], [address] Blood Gas Type ART [facility] Comment on above: Performed By: #### L 100.0100, L500.2500 #### [facility] [address] [place], [address] CO2 [Moles/Vol] 18 mmol/L [facility] Comment on above: Performed By: #### L 100.0100, L500.2500 #### [facility] [address] [place], [address] Comment AIRVO 60L [facility] Comment on above: Performed By: #### L 100.0100, L500.2500 #### [facility] [address] [place], [address] FI02 50.0 [facility] Comment on above: Performed By: #### L 100.0100, L500.2500 #### [facility] [address] [place], [address] HCO3 (Bld) [Moles/Vol] 17.0 mmol/L Low 22-26 W [facility] Comment on above: Performed By: #### L 100.0100, L500.2500 #### [facility] [address] [place], [address] Mode Not entered [facility] Comment on above: Performed By: #### L 100.0100, L500.2500 #### [facility] [address] [place], [address] O2 Delivery Dev HFNC [facility] Comment on above: Performed By: #### L 100.0100, L500.2500 #### [facility] [address] [place], [address] pCO2 28.6 mmHg Low 35-45 [facility] Comment on above: Performed By: #### L 100.0100, L500.2500 #### [facility] [address] [place], [address] pH (Bld) 7.38 [pH] Normal 7.35-7.45 [facility] Comment on above: Performed By: #### L 100.0100, L500.2500 #### [facility] [address] [place], [address] PO2 102 mmHG High 75-100 [facility] Comment on above: Performed By: #### L 100.0100, L500.2500 #### [facility] [address] [place], [address] SITE R Radial Normal [facility] Comment on above: Performed By: #### L 100.0100, L500.2500 #### [facility] [address] [place], [address] SO2 98 Normal 95-99 [facility] Comment on above: Performed By: #### L 100.0100, L500.2500 #### [facility] [address] [place], [address] Blood base excess determinat ionOrdered By: Neo Tejeda on 09-07-2024 Base excess Calc (BldV) [Moles/Vol] -8 mmol/L Low -2-2 [facility] Blood bicarbonate measuremen tOrdered By: Neo Tejeda on 09-07-2024 HCO3 (Bld) [Moles/Vol] 17.0 mmol/L Low 22-26 W [facility] CBC W/Diff, Automatedon Absolute Lymph 0.74 X10 3/uL Low 0.83-4.51 [facility] Comment on above: Performed By: #### L 500.2500, L501.4020, L100.0100, L300.3900, L300.4310 ####[facility] [address] [place], [address] Absolute Neut 10.8 X10 3/uL High 2.0-7.7 [facility] Comment on above: Performed By: #### L 500.2500, L501.4020, L100.0100, L300.3900, L300.4310 ####[facility] [address] [place], [address] Basophils/100 WBC (Bld) 0.3 % Normal 0-1 [facility] Comment on above: Performed By: #### L 500.2500, L501.4020, L100.0100, L300.3900, L300.4310 ####[facility] [address] [place], [address] Eosinophils/100 WBC (Bld) 0.1 % Normal 0-5 [facility] Comment on above: Performed By: #### L 500.2500, L501.4020, L100.0100, L300.3900, L300.4310 ####[facility] [address] [place], [address] Erythrocyte distribution width (RBC) [Ratio] 16.4 % High 11.6-14.6 [facility] Comment on above: Performed By: #### L 500.2500, L501.4020, L100.0100, L300.3900, L300.4310 ####[facility] [address] [place], [address] Hematocrit (Bld) [Volume fraction] 46.6 % Normal 40-54 [facility] Comment on above: Performed By: #### L 500.2500, L501.4020, L100.0100, L300.3900, L300.4310 ####[facility] [address] [place], [address] Hemoglobin (Bld) [Mass/Vol] 15.8 g/dL Normal 13.0-16.5 [facility] Comment on above: Performed By: #### L 500.2500, L501.4020, L100.0100, L300.3900, L300.4310 ####[facility] [address] [place], [address] IG% 1.200 High 0.0-0.9 [facility] Comment on above: Result Comment: IG% - Immature Granulocytes (promyelocytes, myelocytes and metamyelocytes) > 1% indicates that a LEFT SHIFT is Present. Performed By: #### L 500.2500, L501.4020, L100.0100, L300.3900, L300.4310 ####[facility] [address] [place], [address] Lymphocytes/100 WBC (Bld) 5.8 % Low 19-41 [facility] Comment on above: Performed By: #### L 500.2500, L501.4020, L100.0100, L300.3900, L300.4310 ####[facility] [address] [place], [address] MCH (RBC) [Entitic mass] 31.5 pg Normal 27.0-32.0 [facility] Comment on above: Performed By: #### L 500.2500, L501.4020, L100.0100, L300.3900, L300.4310 ####[facility] [address] [place], [address] MCHC (RBC) [Mass/Vol] 33.9 g/dL Normal 32-36 [facility] Comment on above: Performed By: #### L 500.2500, L501.4020, L100.0100, L300.3900, L300.4310 ####[facility] [address] [place], [address] MCV (RBC) [Entitic vol] 93.0 fL Normal 80-94 [facility] Comment on above: Performed By: #### L 500.2500, L501.4020, L100.0100, L300.3900, L300.4310 ####[facility] [address] [place], [address] Monocytes/100 WBC (Bld) 7.4 % Normal 0-10 [facility] Comment on above: Performed By: #### L 500.2500, L501.4020, L100.0100, L300.3900, L300.4310 ####[facility] [address] [place], [address] Neutrophils/100 WBC (Bld) 85.2 % High 47-70 [facility] Comment on above: Performed By: #### L 500.2500, L501.4020, L100.0100, L300.3900, L300.4310 ####[facility] [address] [place], [address] Nucleated RBC (Bld) [#/Vol] 0 10*3/uL Normal 0-5 [facility] Comment on above: Performed By: #### L 500.2500, L501.4020, L100.0100, L300.3900, L300.4310 ####[facility] [address] [place], [address] Platelet mean volume (Bld) [Entitic vol] 11.0 fL Normal 6.2-12.0 [facility] Comment on above: Performed By: #### L 500.2500, L501.4020, L100.0100, L300.3900, L300.4310 ####[facility] [address] [place], [address] Platelets (Bld) [#/Vol] 195 10*3/uL Normal 150-450 [facility] Comment on above: Performed By: #### L 500.2500, L501.4020, L100.0100, L300.3900, L300.4310 ####[facility] [address] [place], [address] RBC (Bld) [#/Vol] 5.01 10*6/uL Normal 4.6-6.2 [facility] Comment on above: Performed By: #### L 500.2500, L501.4020, L100.0100, L300.3900, L300.4310 ####[facility] [id number] [place], [address] RDW SD 53.0 fl High 35.1-43.9 [facility] Comment on above: Performed By: #### L 500.2500, L501.4020, L100.0100, L300.3900, L300.4310 ####[facility] [id number] [place], [address] WBC (Bld) [#/Vol] 12.7 10*3/uL High 4.4-11.0 [facility] Comment on above: Performed By: #### L 500.2500, L501.4020, L100.0100, L300.3900, L300.4310 ####[facility] [address] [place], [address] CTA Head AND Neck W/ Contras ton 09-07-2024 CTA Head AND Neck W/ Contrast [facility] Imaging Services [address] [place] [address] CTA Head AND Neck W/ Contrast MR#: [id number] Acct: [id number] Name: CLARK LYLES Rep #: [id number] : 1935 M 88 From: Axel Marie MD PCP: Brigitte Segal, PHOTO FINISH PHOTOGRAPHER Status: REG ER Study: CTA Head AND Neck W/ Contrast Date of Exam: Exam# [id number] Ordering Dr: Neo Tejeda DO PROCEDURE: CTA [...] use of iterative reconstruction technique). Reading Location: [facility] CC: MARIANA Segal; Dr. Neo Tejeda DO [employer] Teacher: Signed Normal [facility] Calcium oxalate crystals det ection in urine sediment by light microscopyOrdered By: Neo Tejeda on 09-07-2024 Calcium oxalate crystals LM Ql (Urine sed) 1+ /hpf [facility] Chest 1 Viewon 09-07-2024 Chest 1 View [facility] Imaging Services [address] [place], [place] [address] Chest 1 View MR#: [id number] Acct: [id number] Name: LYLESCLARK LAMA Rep #: [id number] : 1935 M 88 From: Axel Marie MD PCP: MARIANA Humphreys Status: REG ER Study: Chest 1 View Date of Exam: 09/07/24 Exam# [id number] Ordering Dr: Neo Tejeda DO PROCEDURE: CHEST 1 VIEW REASON FOR EXAM: Cough TECHNIQUE: Frontal view of the chest. COMPARISON: Reviewed. FINDINGS: The cardiac and mediastinal contours are normal. The lungs are clear. RAD/Chest 1 View IMPRESSION: No acute radiographic process. Reading Location: [facility] CC: PHOTO FINISH PHOTOGRAPHER Brigitte Segal; Dr. Neo Tejeda DO [employer] Teacher: Signed Normal [facility] D-Dimer Quantitative (DVT/PE )on 09-07-2024 D-DIMER QUANT 1.63 FEU/ug/m Invalid Interpretation Code 0.27-0.49 [facility] Comment on above: Result Comment: D-Di marv ELEVATED (>0.49): Additional studies and clinical assessments are indicated to conclude diagnosis of: Deep Vein Thrombosis (DVT) or Pulmonary Embolism (PE) CRITICAL VALUE CALLED TO NIKOLAS HILL 09/07/24 1307 Robyn Lizarraga. RESULTS READ BACK BY SAME. Performed By: #### L 100.0100, L500.2500 #### [facility] Laboratory [address] [facility] [place], [address] Elbow min 3 Viewson 09-07-19 25 Elbow min 3 Views [facility] Imaging Services [address] [place] [address] Elbow min 3 Views MR#: [id number] Acct: [id number] Name: CLARK LYLES Rep #: [id number] : 1935 M 88 From: Axel Marie MD PCP: MARIANA Humphreys Status: REG ER Study: Elbow min 3 Views Date of Exam: 09/07/24 Exam# [id number] Ordering Dr: Neo Tejeda DO PROCEDURE: ELBOW [...] No other acute radiographic process. Reading Location: [facility] CC: MARIANA Segal; Dr. Neo Tejeda DO [employer] Teacher: Signed Normal [facility] Elbow min 3 Views [facility] Imaging Services [address] [place] [address] Elbow min 3 Views MR#: [id number] Acct: [id number] Name: CLARK LYLES Rep #: [id number] : 1935 M 88 From: Axel Marie MD PCP: MARIANA Humphreys Status: REG ER Study: Elbow min 3 Views Date of Exam: 09/07/24 Exam# [id number] Ordering Dr: Neo Tejeda DO PROCEDURE: ELBOW [...] CC: MARIANA Segal; Dr. Neo Tejeda DO [employer] Teacher: Signed Normal [facility] Emergency Department Summary on 09-07-2024 Emergency Department Summary [facility] Medical Records Department [address] [place] [address] Emergency Department Summary 09/07/24 MR#: [id number] Acct: [id number] Name: CLARK LYLES Rep #: [id number] : 1935 88 From: Neo Tejeda DO PCP: Brigitte Segal, PHOTO FINISH PHOTOGRAPHER Status:ADM IN Location: [place] [address] HPI History of Present Illness Chief Complaint: Stroke Alert [facility] Medical History (Updated 09/07/24 @ 13:[address] Jerrell Faith MD) COVID-19 virus detected (08/23/20) Anxiety and depression Chronic anemia Acute respiratory failure with hypoxia Hypoxia Pneumonia due to COVID-19 virus GI bleed (12/2019) Atherosclerosis of coronary artery of apache heart without angina pectoris Peripheral vascular occlusive [...] was fo (more content not included)... Normal [facility] H AND P Exam - Hospitaliston 09-07-2024 H&P Exam - Hospitalist [facility] Medical Records Department [address] [address] H P Exam - Hospitalist 09/07/24 1317 MR#: [id number] Acct: [id number] Name: CLARK LYLES Rep #: [id number] : 1935 88 From: Jerrell Faith MD PCP: Brigitte Segal, PHOTO FINISH PHOTOGRAPHER Status:ADM IN Location: [place] [address] HPI - General General Date of Admission: [...] monitored bed for further management [facility] Medical History (Updated 09/07/24 @ 13:[address] Jerrell Faith MD) COVID-19 virus detected (08/23/20) Anxiety and depression Chronic anemia Acute respiratory failure with hypoxia Hypoxia Pneumonia due to COVID-19 virus GI bleed (12/2019) Atherosclerosis of coronary artery of apache heart without angina pectoris Peripheral vascular occlusive [...] 10:23 02/ (more content not included)... Normal [facility] Hyaline casts LM.LPF (Urine sed) [#/Area]Ordered By: Neo Tejeda on 09-07-2024 Hyaline casts (Urine sed) [#/Area] 0 /[LPF] 0-5 [facility] Influenza virus A and B and SARS-CoV-2 (COVID-19) and Respiratory syncytial virus RNAOrdered By: Neo Tejeda on 09-07-2024 SARS-CoV-2 (COVID-19) RNA CAMERON+probe Ql (Unsp spec) [facility] International normalized rat io (INR) calculationOrdered By: Neo Tejeda on 09-07-2024 INR Coag (Bld) [Relative time] 1.0 {INR} [facility] Ketones Test strip Ql (U)Ord ered By: Neo Tejeda on 09-07-2024 Ketones Ql (U) 5 mg/dl High Negative [facility] L501.4020on 09-07-2024 TROPONIN-I HS 68 pg/mL Normal 3.0-78.0 [facility] Comment on above: Order Comment: Comme nts: SPECIMEN #3'TROP' Serial specimen #1, #2 or #3: 3 Result Comment: Plea se Note: New Test Units and Gender Specific Reference Ranges. For more information see Policy Stat Procedure [place] High Sensitivity Troponin (TNIH) and attachments. Performed By: #### L 100.0100, L500.2500 #### [facility] [address] [place], [address] TROPONIN-I HS 76 pg/mL Normal 3.0-78.0 [facility] Comment on above: Order Comment: Comme nts: SPECIMEN #2'TROP' Serial specimen #1, #2 or #3: 2 Result Comment: Plea se Note: New Test Units and Gender Specific Reference Ranges. For more information see Policy Stat Procedure [place] High Sensitivity Troponin (TNIH) and attachments. Performed By: #### L 100.0100, L500.2500 #### [facility] [address] [place], [address] TROPONIN-I HS 63 pg/mL Normal 3.0-78.0 [facility] Comment on above: Order Comment: 'TROP ' Serial specimen #1, #2 or #3: 1 Result Comment: Plea se Note: New Test Units and Gender Specific Reference Ranges. For more information see Policy Stat Procedure [place] High Sensitivity Troponin (TNIH) and attachments. Performed By: #### L 500.2500, L501.4020, L100.0100, L300.3900, L300.4310 ####[facility] [address] [place], [address] M100.678on 09-07-2024 M100.678 Pending SARS-CoV-2 (COVID 19) Negative INFLUENZA A Negative INFLUENZA B Negative RSV PCR Negative Normal [facility] Comment on above: Performed By: #### L 100.0100, L500.2500 #### [facility] [address] [place], [address] Measurement, pHOrdered By: Hugo Tejeda on 09-07-2024 pH (Unsp spec) 7.38 [pH] 7.35-7.45 [facility] Microscopic analysis of urin e for red blood cells (RBC)Ordered By: Neo Tejeda on 09-07-2024 Microscopic analysis of urine for red blood cells (RBC) 0-5 SEEN /hpf 0-5 [facility] Mucus LM Ql (Urine sed)Order ed By: Neo Tejeda on 09-07-2024 Mucus Ql (Urine sed) 1+ /hpf [facility] Nitrite Test strip Ql (U)Ord ered By: Neo Tejeda on 09-07-2024 Nitrite Ql (U) Negative Negative [facility] No Panel InformationOrdered By: Neo Tejeda on 09-07-2024 Blood Gas Clinical Comments AIRVO 60L [facility] Blood Gas Sample Site R Radial [facility] Blood Gas Specimen Type ART [facility] Blood Gas Vent Mode Not entered [facility] Oxygen Delivery Device HFNC [facility] Partial Thromboplast Timeon 09-07-2024 aPTT Coag (Bld) [Time] 26.5 s Normal 24.1-36.2 [facility] Comment on above: Performed By: #### L 500.2500, L501.4020, L100.0100, L300.3900, L300.4310 ####[facility] [address] [place], [place], [address] Protein Test strip Ql (U)Ord ered By: Neo Tejeda on 09-07-2024 Protein Ql (U) 30 mg/dl High Negative [facility] Prothrombin Time w/INRon INR Coag (PPP) [Relative time] 1.0 {INR} Normal [facility] Comment on above: Performed By: #### L 500.2500, L501.4020, L100.0100, L300.3900, L300.4310 ####[facility] [address] [place], [place], [address] PT Coag (PPP) [Time] 13.6 s Normal 11.7-14.9 [facility] Comment on above: Performed By: #### L 500.2500, L501.4020, L100.0100, L300.3900, L300.4310 ####[facility] [address] [place], [address] Prothrombin timeOrdered By: Neo Tejeda on 09-07-2024 PT Coag (PPP) [Time] 13.6 s 11.7-14.9 [facility] RESPIRATORY PANEL MOLECULARo n 09-07-2024 RP [...] Not Detected RSV B Not Detected Normal [facility] Comment on above: Performed By: #### L 100.0100, L500.2500 #### [facility] [address] [place], [address] Respiratory pathogens detect ion panel by molecular detection methodOrdered By: Jerrell Faith on 09-07-2024 Respiratory pathogens DNA and RNA panel CAMERON+probe (Resp) [facility] STROKE Brain/Head without Co nton 09-07-2024 STROKE Brain/Head without Cont [facility] Imaging Services [address] [place], [place] [address] STROKE Brain/Head without Cont MR#: [id number] Acct: [id number] Name: CLARK LYLES Rep #: [id number] : 1935 M 88 From: Axel Marie MD PCP: CHRISTINE Brown Status: REG ER Study: STROKE Brain/Head without Cont Date of Exam: 0 09/07/24 Exam# [id number] Ordering Dr: Neo Tejeda DO EXAM: STROKE [...] the time of this dictation Reading [facility] CC: Dr. Neo Tejeda DO; CHRISTINE Brown [employer] Teacher: Signed Normal [facility] Squamous epithelial cells de tection in urine sediment by light microscopyOrdered By: Neo Tejeda on 09-07-2024 Epithelial cells.squamous LM Ql (Urine sed) 0-5 SEEN /hpf 0-5 [facility] Total carbon dioxide measure mentOrdered By: Neo Tejeda on 09-07-2024 CO2 [Moles/Vol] 18 mmol/L [facility] Troponin IOrdered By: Jerrell Faith on 09-07-2024 Troponin I 68 pg/mL 3.0-78.0 [facility] Comment on above: Please Note: [place] t Units and Gender Specific Reference Ranges. For more information see Policy Stat Procedure [place] High Sensitivity Troponin (TNIH) and attachments. Urinalysis, Completeon 09-07 CA OX CRYSTAL 1+ /hpf Normal [facility] Comment on above: Order Comment: COLLE CTOR TO SPECIFY Performed By: #### L 100.0100, L500.2500 #### [facility] [address] [place], [place], [address] BACTERIA RARE Normal None Seen [facility] Comment on above: Order Comment: COLLE CTOR TO SPECIFY Performed By: #### L 100.0100, L500.2500 #### [facility] [address] [place], [address] CAST,HYALINE 0-5 SEEN Normal 0-5 [facility] Comment on above: Order Comment: COLLE CTOR TO SPECIFY Performed By: #### L 100.0100, L500.2500 #### [facility] [address] [place], [address] EPI,SQUAMOUS 0-5 SEEN Normal 0-5 [facility] Comment on above: Order Comment: COLLE CTOR TO SPECIFY Performed By: #### L 100.0100, L500.2500 #### [facility] [address] [place], [address] Mucus Ql (Urine sed) 1+ /hpf Normal [facility] Comment on above: Order Comment: COLLE CTOR TO SPECIFY Performed By: #### L 100.0100, L500.2500 #### [facility] [address] [place], [address] RBC 0-5 SEEN Normal 0-5 [facility] Comment on above: Order Comment: [facility] CTOR TO SPECIFY Performed By: #### L 100.0100, L500.2500 #### [facility] [address] [place], [address] WBC 0-5 SEEN Normal 0-5 [facility] Comment on above: Order Comment: [facility] CTOR TO SPECIFY Performed By: #### L 100.0100, L500.2500 #### [facility] [address] [place], [address] Urine clarityOrdered By: Ninoska Tejeda on 09-07-2024 Clarity (U) Clear Clear [facility] Urine color determinationOrd ered By: Neo Tejeda on 09-07-2024 Color (U) Yellow Yellow [facility] Urine glucose detectionOrder ed By: Neo Tejeda on 09-07-2024 Glucose Ql (U) Normal mg/dl Normal [facility] Urine leukocyte esterase det ection by dipstickOrdered By: Neo Tejeda on 09-07-2024 Leukocyte esterase Test strip Ql (U) Negative Negative [facility] Urine pHOrdered By: Neo espinalus on 09-07-2024 pH (U) 6.0 [pH] 5.0 - 8.0 [facility] Urine sediment bacteria coun t by microscopy (number/high power field)Ordered By: Neo Tejeda on 09-07-2024 Bacteria LM.HPF (Urine sed) [#/Area] RARE /hpf None Seen [facility] Urine specific gravity measu rementOrdered By: Neo Tejeda on 09-07-2024 Specific gravity (U) [Rel density] 1.010 1.002-1.03 0 [facility] Urine urobilinogen measureme ntOrdered By: Neo Tejeda on 09-07-2024 Urobilinogen Ql (U) Normal mg/dl Normal [facility] White blood cell countOrdere d By: Neo Tejeda on 09-07-2024 White blood cell count 0-5 SEEN /hpf 0-5 [facility] CNOVon 03-27-2024 [facility] CLARK LYLES ([id number]) 1935 M Date Time Provider Department 03/27/24 8:00 AM [facility] During your visit today, we recorded the following information about you: Pulse Respiration Blood pressure Weight 63/minute 16/minute 126/67 68.9 kg Brigitte Segal APRN.FIELD MARKETING MANAGER 03/27/2024 8:28 AM Addendum This is [...] lipoma performed by Dr. Robe Mackenzie at [facility] 03-18-14: REVSC OPN/PRQ FEM/POP W/STNT/ANGIOP SM [...] METOPROLOL SUCCINATE (more content not included)... Normal [facility] 02-26-2024 JANETN Telephone ([facility]) CLARK LYLES ([id number]) 1935 M Date Time Provider Department 02/26/24 BRIGITTE SEGAL [facility] During your visit today, we recorded the [...] Date Reviewed: 02/25/2024 Reviewed by: Brigitte Segal APRN.FIELD MARKETING MANAGER - Fully Assessed Prescriptions as of [...] Meds Comments as of 04/18/2021: Taking Saw [place]. Problem List As Of Date 02/26/2024 Noted [...] chronic blood los*01/27/2020 Coronary artery disease involving apache rabago*12/22/2020 S/P primary angioplasty with coronary stent [Z9*12/22/2020 Fall from standing [W19.XXXA] 09/20/2021 Encounter for support and coordination of trans*08/11/2023 Acute respiratory failure with hypoxia (HCC) [J*09/25/2023 Encounter Status:Closed by SHIRLEY RIVERA on 02/26/24 Normal [facility] Amylase SerPl-cCncon 024 Amylase [Catalytic activity/Vol] 52 U/L Normal 30-104 [facility] Comment on above: Order Comment: Speci men Type: BLOOD SPECIMENOrdering Facility: [facility] Address: [address] [place] [address] Performed By: #### 3 040-3, 1798-8, 98538-4 ####[facility] LABCLIA [id number] [place] [address] [place] CBC W Auto Differential pane l (Bld)on 02-25-2024 Basophils (Bld) [#/Vol] 0.04 10*3/uL Normal <0.11 [facility] Comment on above: Order Comment: Speci men Type: BLOOD SPECIMENOrdering Facility: [facility] Address: [address] [place] [address] Performed By: #### 5 7021-8 ####[facility] LABCLIA [id number] [place] [address] [place] Basophils/100 WBC (Bld) 0.4 % Normal [facility] Comment on above: Order Comment: Speci men Type: BLOOD SPECIMENOrdering Facility: [facility] Address: [address] [place] [address] Performed By: #### 5 7021-8 ####[facility] LABCLIA [id number] [place] [address] [place] Differential cell count method Nom (Bld) Auto Normal [facility] Comment on above: Order Comment: Speci men Type: BLOOD SPECIMENOrdering Facility: [facility] Address: [address] [place] [address] Performed By: #### 5 7021-8 ####[facility] LABCLIA [id number] [place] [address] [place] Eosinophils (Bld) [#/Vol] 0.31 10*3/uL Normal <0.46 [facility] Comment on above: Order Comment: Speci men Type: BLOOD SPECIMENOrdering Facility: [facility] Address: [address] [place] [address] Performed By: #### 5 7021-8 ####[facility] LABCLIA [id number] [place] [address] [place] Eosinophils/100 WBC (Bld) 2.9 % Normal [facility] Comment on above: Order Comment: Speci men Type: BLOOD SPECIMENOrdering Facility: [facility] Address: [address] [place] [address] Performed By: #### 5 7021-8 ####[facility] LABCLIA [id number] [place] [address] [place] Erythrocyte distribution width (RBC) [Ratio] 14.8 % Normal 11.5-15.0 [facility] Comment on above: Order Comment: Speci men Type: BLOOD SPECIMENOrdering Facility: [facility] Address: [address] [place] [address] Performed By: #### 5 7021-8 ####[facility] LABCLIA [id number] [place] [address] [place] Hematocrit (Bld) [Volume fraction] 50.9 % Normal 39.0-51.0 [facility] Comment on above: Order Comment: Speci men Type: BLOOD SPECIMENOrdering Facility: [facility] Address: [address] [place] [address] Performed By: #### 5 7021-8 ####[facility] LABCLIA [id number] [place] [address] [place] Hemoglobin (Bld) [Mass/Vol] 16.4 g/dL Normal 13.0-17.0 [facility] Comment on above: Order Comment: Speci men Type: BLOOD SPECIMENOrdering Facility: [facility] Address: [address] [place] [address] Performed By: #### 5 7021-8 ####[facility] LABCLIA [id number] [place] [address] [place] Immature granulocytes (Bld) [#/Vol] 0.08 10*3/uL Normal <0.10 [facility] Comment on above: Order Comment: Speci men Type: BLOOD SPECIMENOrdering Facility: [facility] Address: [address] [place] [address] Performed By: #### 5 7021-8 ####[facility] LABCLIA [id number] [place] [address] [place] Immature granulocytes/100 WBC (Bld) 0.7 % Normal [facility] Comment on above: Order Comment: Speci men Type: BLOOD SPECIMENOrdering Facility: [facility] Address: [address] [place] [address] Performed By: #### 5 7021-8 ####[facility] LABCLIA [id number] [place] [address] [place] Lymphocytes (Bld) [#/Vol] 0.73 10*3/uL Low 1.00-4.00 [facility] Comment on above: Order Comment: Speci men Type: BLOOD SPECIMENOrdering Facility: [facility] Address: [address] [place] [address] Performed By: #### 5 7021-8 ####[facility] LABCLIA [id number] [place] [address] [place] Lymphocytes/100 WBC (Bld) 6.7 % Normal [facility] Comment on above: Order Comment: Speci men Type: BLOOD SPECIMENOrdering Facility: [facility] Address: [address] [place] [address] Performed By: #### 5 7021-8 ####[facility] LABCLIA [id number] [address] [address] [place] MCH (RBC) [Entitic mass] 29.8 pg Normal 26.0-34.0 [facility] Comment on above: Order Comment: Speci men Type: BLOOD SPECIMENOrdering Facility: [facility] Address: [address] [place] [address] Performed By: #### 5 7021-8 ####[facility] LABCLIA [id number] [place] [address] [place] MCHC (RBC) [Mass/Vol] 32.2 g/dL Normal 30.5-36.0 [facility] Comment on above: Order Comment: Speci men Type: BLOOD SPECIMENOrdering Facility: [facility] Address: [address] [place] [address] Performed By: #### 5 7021-8 ####[facility] LABCLIA [id number] [place] [address] [place] MCV (RBC) [Entitic vol] 92.4 fL Normal 80.0-100.0 [facility] Comment on above: Order Comment: Speci men Type: BLOOD SPECIMENOrdering Facility: [facility] Address: [address] [place] [address] Performed By: #### 5 7021-8 ####[facility] LABCLIA [id number] [place] [address] [place] Monocytes (Bld) [#/Vol] 0.75 10*3/uL Normal <0.87 [facility] Comment on above: Order Comment: Speci men Type: BLOOD SPECIMENOrdering Facility: [facility] Address: [address] [place] [address] Performed By: #### 5 7021-8 ####[facility] LABCLIA [id number] [place] [address] [place] Monocytes/100 WBC (Bld) 6.9 % Normal [facility] Comment on above: Order Comment: Speci men Type: BLOOD SPECIMENOrdering Facility: [facility] Address: [address] [place] [address] Performed By: #### 5 7021-8 ####[facility] LABCLIA [id number] [place] [address] [place] Neutrophils (Bld) [#/Vol] 8.92 10*3/uL High 1.45-7.50 [facility] Comment on above: Order Comment: Speci men Type: BLOOD SPECIMENOrdering Facility: [facility] Address: [address] [place] [address] Performed By: #### 5 7021-8 ####[facility] LABCLIA [id number] [place] [address] [place] Neutrophils/100 WBC (Bld) 82.4 % Normal [facility] Comment on above: Order Comment: Speci men Type: BLOOD SPECIMENOrdering Facility: [facility] Address: [address] [place] [address] Performed By: #### 5 7021-8 ####[facility] LABCLIA [id number] [place] [address] [place] Nucleated RBC (Bld) [#/Vol] 10*3/uL Normal <0.01 [facility] Comment on above: Order Comment: Speci men Type: BLOOD SPECIMENOrdering Facility: [facility] Address: [address] [place] [address] Performed By: #### 5 7021-8 ####[facility] LABCLIA [id number] [place] [address] [place] Nucleated RBC/100 WBC (Bld) [Ratio] 0.0 /100 WBC Normal [facility] Comment on above: Order Comment: Speci men Type: BLOOD SPECIMENOrdering Facility: [facility] Address: [address] [place] [address] Performed By: #### 5 7021-8 ####[facility] LABCLIA [id number] [place] [address] [place] Platelet mean volume (Bld) [Entitic vol] 11.8 fL Normal 9.0-12.7 [facility] Comment on above: Order Comment: Speci men Type: BLOOD SPECIMENOrdering Facility: [facility] Address: [address] [place] [address] Performed By: #### 5 7021-8 ####[facility] LABIA [id number] [place] [address] [place] Platelets (Bld) [#/Vol] 234 10*3/uL Normal 150-400 [facility] Comment on above: Order Comment: Speci men Type: BLOOD SPECIMENOrdering Facility: [facility] Address: [address] [place] [address] Performed By: #### 5 7021-8 ####[facility] LABCLIA [id number] [place] [address] [place] RBC (Bld) [#/Vol] 5.51 10*6/uL Normal 4.20-6.00 [facility] Comment on above: Order Comment: Speci men Type: BLOOD SPECIMENOrdering Facility: [facility] Address: [address] [place] [address] Performed By: #### 5 7021-8 ####[facility] LABIA [id number] [place] [address] [place] WBC (Bld) [#/Vol] 10.83 10*3/uL Normal 3.70-11.00 [facility] Comment on above: Order Comment: Speci men Type: BLOOD SPECIMENOrdering Facility: [facility] Address: [address] [place] [address] Performed By: #### 5 7021-8 ####[facility] LABCLIA [id number] [place] [address] [place] CNOVon 02-25-2024 CNOV Office Visit (FAMPWS ) CLARK LYLES ([id number]) 1935 M Date Time Provider Department 02/25/24 8:20 AM [facility]IT[facility] During your visit today, we recorded the following information about you: Pulse Respiration Blood pressure Weight 60/minute 16/minute 148/70 68.9 kg Brigitte Segal, SHUKRI.[facility] 02/25/2024 8:51 AM Signed This is [...] lipoma performed by Dr. Robe Mackenzie at [facility] REVSC OPN/PRQ FEM/POP W/STNT/ANGIOP SM VSL [...] included)... Normal [facility] Comprehensive metabolic 2000 panelon 02-25-2024 Albumin [Mass/Vol] 4.4 g/dL Normal 3.9-4.9 [facility] Comment on above: Order Comment: Speci men Type: BLOOD SPECIMENOrdering Facility: [facility] Address: [address] [place] [address] Performed By: #### 3 040-3, 1798-02, ####[facility] LABIA [id number] [place] [address] [place] ALP [Catalytic activity/Vol] 57 U/L Normal 38-113 [facility] Comment on above: Order Comment: Speci men Type: BLOOD SPECIMENOrdering Facility: [facility] Address: [address] [place] [address] Performed By: #### 3 040-3, 1798-02, ####[facility] LABCLIA [id number] [place] [address] [place] ALT [Catalytic activity/Vol] 24 U/L Normal 10-54 [facility] Comment on above: Order Comment: Speci men Type: BLOOD SPECIMENOrdering Facility: [facility] Address: [address] [place], [place] [address] Performed By: #### 3 040-3, 1798-02, ####[facility] LABCLIA [id number] [address] [address] [place] Anion gap [Moles/Vol] 12 mmol/L Normal 8-15 [facility] Comment on above: Order Comment: Speci men Type: BLOOD SPECIMENOrdering Facility: [facility] Address: [address] [place], [place] [address] Performed By: #### 3 040-3, 1798-02, ####[facility] LABCLIA [id number] [place] [id number] [place] AST [Catalytic activity/Vol] 28 U/L Normal 14-40 [facility] Comment on above: Order Comment: Speci men Type: BLOOD SPECIMENOrdering Facility: [facility] Address: [address] [place] [address] Performed By: #### 3 040-3, 1798-02, ####[facility] LABCLIA [id number] [place] [id number] [place] Bilirubin [Mass/Vol] 1.1 mg/dL Normal 0.2-1.3 [facility] Comment on above: Order Comment: Speci men Type: BLOOD SPECIMENOrdering Facility: [facility] Address: [address] [place], [place] [address] Performed By: #### 3 040-3, 1798-02, ####[facility] LABCLIA [id number] [address] [address] [place] Calcium [Mass/Vol] 9.7 mg/dL Normal 8.5-10.2 [facility] Comment on above: Order Comment: Speci men Type: BLOOD SPECIMENOrdering Facility: [facility] Address: [address] [place], [place] [address] Performed By: #### 3 040-3, 1798-02, 61253-3 ####[facility] LABCLIA [id number] [place] [id number] [place] Chloride [Moles/Vol] 103 mmol/L Normal 98-107 [facility] Comment on above: Order Comment: Speci men Type: BLOOD SPECIMENOrdering Facility: [facility] Address: [address] [place] [address] Performed By: #### 3 040-3, 1798-02, ####[facility] LABIA [id number] [place] [address] [place] CO2 [Moles/Vol] 24 mmol/L Normal 22-30 [facility] Comment on above: Order Comment: Speci men Type: BLOOD SPECIMENOrdering Facility: [facility] Address: [address] [place] [address] Performed By: #### 3 040-3, 1798-02, 03325-7 ####[facility] LABIA [id number] [place] [address] [place] Creatinine [Mass/Vol] 0.90 mg/dL Normal 0.73-1.22 [facility] Comment on above: Order Comment: Speci men Type: BLOOD SPECIMENOrdering Facility: [facility] Address: [address] [place] [address] Performed By: #### 3 040-3, 1798-02, ####[facility] LABIA [id number] [place] [address] [place] Creatinine and Glomerular filtration rate.predicted panel (S/P/Bld) 83 mL/min/1.73m??? Normal >=60 [facility] Comment on above: Order Comment: Speci men Type: BLOOD SPECIMENOrdering Facility: [facility] Address: [address] [place] [address] Result Comment: Louann mated Glomerular Filtration Rate [...] GFR. Performed By: #### 3 040-3, 8, ####[facility] LABCLIA [id number] [place] [id number] [place] Glucose [Mass/Vol] 89 mg/dL Normal 74-99 [facility] Comment on above: Order Comment: Spechakan men Type: BLOOD SPECIMENOrdering Facility: [facility] Address: [address] [place] [address] Result Comment: The [place] Diabetes Association (ADA) provides guidance for cutoff [...] Standards of Medical Care in Diabetes 2016, [place] Diabetes Association. Diabetes Care. 2016.39(Suppl 1). Performed By: #### 3 040-3, 1798-02, ####[facility] LABCLIA [id number] [place] [id number] [place] Potassium [Moles/Vol] 4.4 mmol/L Normal 3.7-5.1 [facility] Comment on above: Order Comment: Kailey simons Type: BLOOD SPECIMENOrdering Facility: [facility] Address: [address] [place] [address] Performed By: #### 3 040-3, 8, ####[facility] LABCLIA [id number] [place] [address] [place] Protein [Mass/Vol] 6.1 g/dL Low 6.3-8.0 [facility] Comment on above: Order Comment: Speci men Type: BLOOD SPECIMENOrdering Facility: [facility] Address: [address] [place] [address] Performed By: #### 3 040-3, 8, 82192-2 ####[facility] LABCLIA [id number] [place] [address] [place] Sodium [Moles/Vol] 139 mmol/L Normal 136-144 [facility] Comment on above: Order Comment: Speci men Type: BLOOD SPECIMENOrdering Facility: [facility] Address: [address] [place] [address] Performed By: #### 3 040-3, 1798-02, 23235-7 ####[facility] LABIA [id number] [place] [address] [place] Urea nitrogen [Mass/Vol] 15 mg/dL Normal 9-24 [facility] Comment on above: Order Comment: Speci men Type: BLOOD SPECIMENOrdering Facility: [facility] Address: [address] [place] [address] Performed By: #### 3 040-3, 1798-02, 68368-7 ####[facility] LABCLIA [id number] [place] [id number] [place] H. pylori IgG IA Qlon 2023 H. PYLORI IGG, QUAL Negative Normal Negative [facility] Comment on above: Order Comment: Speci men Type: BLOOD SPECIMENOrdering Facility: [facility] Address: [address] [place] [address] Result Comment: To ot exclude H. pylori infection if the specimen collected 3-4 weeks after onset of symptoms. Performed By: #### 1 7859-0 ####[facility] LABCLIA [id number] [place] [id number] [place] Lipase SerPl-cCncon 02-25-20 24 Lipase [Catalytic activity/Vol] 41 U/L Normal 16-61 [facility] Comment on above: Order Comment: Speci men Type: BLOOD SPECIMENOrdering Facility: [facility] Address: [address] [place] [address] Performed By: #### 3 040-3, 1798-8, 16838-4 ####[facility] [id number] [place] [address] [place] Cardiology Visit Reporton Cardiology Visit Report [facility] [place] 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 Normal [facility] 12 Lead EKGon 02-09-2024 12 Lead EKG [facility] [address] [place] [address] 12 Lead EKG 02/09/24 0952 MR#: [id number] Acct: [id number] Name: CLARK LYLES Rep #: [id number] : 1935 88 From: Farrah uRvalcaba MD Attending Dr: Status: DEP ER Ordering [...] Normal ECG Confirmed by RITA MANUEL, YUAN ([id number]), publication editor FARSHAD PANDYA ([id number]) on 02/13/2024 9:44:33 AM Referred By: AR Confirmed By:ABEL RUVALCABA MD 02/13/24943 Date Farrah Ruvalcaba MD CC: Dr. Tamra Ivey MD; CHRISTINE Brown Signed Normal [facility] BNP,B-Type NATRIURETIC PEPTI Giovanni 02-09-2024 Natriuretic peptide B (Bld) [Mass/Vol] 180.0 pg/mL High 0-100 [facility] Comment on above: Performed By: #### L 100.0100, L300.8000, L503.6620, L500.2500, L501.4020 ####[facility] [address] [place], [place], [address] Basic Metabolic Profile (BMP )on 02-09-2024 BUN/CRE 13.1 RATIO Normal 10-20 [facility] Comment on above: Order Comment: 'TROP ' Serial specimen #1, #2 or #3: 1 Performed By: #### L 100.0100, L300.8000, L503.6620, L500.2500, L501.4020 ####[facility] [address] [place], [address] CA,Total 9.0 mg/dL Normal 8.5-10.1 [facility] Comment on above: Order Comment: 'TROP ' Serial specimen #1, #2 or #3: 1 Performed By: #### L 100.0100, L300.8000, L503.6620, L500.2500, L501.4020 ####[facility] [address] [place], [address] Chloride [Moles/Vol] 105 mmol/L Normal 98-107 [facility] Comment on above: Order Comment: 'TROP ' Serial specimen #1, #2 or #3: 1 Performed By: #### L 100.0100, L300.8000, L503.6620, L500.2500, L501.4020 ####[facility] [address] [place], [address] CO2 [Moles/Vol] 24.0 mmol/L Normal 21.0-32.0 [facility] Comment on above: Order Comment: 'TROP ' Serial specimen #1, #2 or #3: 1 Performed By: #### L 100.0100, L300.8000, L503.6620, L500.2500, L501.4020 ####[facility] [address] [place], [address] Creatinine [Mass/Vol] 0.92 mg/dL Normal 0.70-1.30 [facility] Comment on above: Order Comment: 'TROP ' Serial specimen #1, #2 or #3: 1 Result Comment: The validity of the calculated GFR GFRAA in patients over 70 years has not been determined. Clinical correlation is essential. Performed By: #### L 100.0100, L300.8000, L503.6620, L500.2500, L501.4020 ####[facility] [address] [place], [address] ECRCL 58.61 ml/min Normal [facility] Comment on above: Order Comment: 'TROP ' Serial specimen #1, #2 or #3: 1 Performed By: #### L 100.0100, L300.8000, L503.6620, L500.2500, L501.4020 ####[facility] [address] [place], [address] EST GFR - AA 100 mL/min Normal >60 [facility] Comment on above: Order Comment: 'TROP ' Serial specimen #1, #2 or #3: 1 Result Comment: Afri can Citizen [place] GFR Calc Performed By: #### L 100.0100, L300.8000, L503.6620, L500.2500, L501.4020 ####[facility] [address] [place], [address] GAP 7 Normal 5-15 [facility] Comment on above: Order Comment: 'TROP ' Serial specimen #1, #2 or #3: 1 Performed By: #### L 100.0100, L300.8000, L503.6620, L500.2500, L501.4020 ####[facility] [address] [place], [address] GFR/1.73 sq M.predicted among non-blacks MDRD (S/P/Bld) [Vol rate/Area] 83 mL/min/{1.73_m2} Normal >60 [facility] Comment on above: Order Comment: 'TROP ' Serial specimen #1, #2 or #3: 1 Result Comment: Non- GFR Calc Performed By: #### L 100.0100, L300.8000, L503.6620, L500.2500, L501.4020 ####[facility] [address] [place], [address] Glucose [Mass/Vol] 115 mg/dL High 74-106 [facility] Comment on above: Order Comment: 'TROP ' Serial specimen #1, #2 or #3: 1 Result Comment: Fast ing Glucose result from 100 to 125 mg/dL suggests IMPAIRED HOMEOSTASIS per A.D.A. criteria. Performed By: #### L 100.0100, L300.8000, L503.6620, L500.2500, L501.4020 ####[facility] [address] [place], [address] Potassium [Moles/Vol] 3.6 mmol/L Normal 3.5-5.1 [facility] Comment on above: Order Comment: 'TROP ' Serial specimen #1, #2 or #3: 1 Performed By: #### L 100.0100, L300.8000, L503.6620, L500.2500, L501.4020 ####[facility] [address] [place], [address] Sodium [Moles/Vol] 136 mmol/L Normal 136-145 [facility] Comment on above: Order Comment: 'TROP ' Serial specimen #1, #2 or #3: 1 Performed By: #### L 100.0100, L300.8000, L503.6620, L500.2500, L501.4020 ####[facility] [address] [place], [address] Urea nitrogen [Mass/Vol] 12 mg/dL Normal 7-18 [facility] Comment on above: Order Comment: 'TROP ' Serial specimen #1, #2 or #3: 1 Performed By: #### L 100.0100, L300.8000, L503.6620, L500.2500, L501.4020 ####[facility] [address] [place], [address] CBC W/Diff, Automatedon 07- Absolute Lymph 0.49 X10 3/uL Low 0.83-4.51 [facility] Comment on above: Performed By: #### L 100.0100, L300.8000, L503.6620, L500.2500, L501.4020 ####[facility] [address] [place], [address] Absolute Neut 7.0 X10 3/uL Normal 2.0-7.7 [facility] Comment on above: Performed By: #### L 100.0100, L300.8000, L503.6620, L500.2500, L501.4020 ####[facility] [address] [place], [address] Basophils/100 WBC (Bld) 0.2 % Normal 0-1 [facility] Comment on above: Performed By: #### L 100.0100, L300.8000, L503.6620, L500.2500, L501.4020 ####[facility] [address] [place], [address] Eosinophils/100 WBC (Bld) 1.4 % Normal 0-5 [facility] Comment on above: Performed By: #### L 100.0100, L300.8000, L503.6620, L500.2500, L501.4020 ####[facility] [address] [place], [address] Erythrocyte distribution width (RBC) [Ratio] 15.9 % High 11.6-14.6 [facility] Comment on above: Performed By: #### L 100.0100, L300.8000, L503.6620, L500.2500, L501.4020 ####[facility] [address] [place], [address] Hematocrit (Bld) [Volume fraction] 46.2 % Normal 40-54 [facility] Comment on above: Performed By: #### L 100.0100, L300.8000, L503.6620, L500.2500, L501.4020 ####[facility] [address] [place], [address] Hemoglobin (Bld) [Mass/Vol] 15.6 g/dL Normal 13.0-16.5 [facility] Comment on above: Performed By: #### L 100.0100, L300.8000, L503.6620, L500.2500, L501.4020 ####[facility] [address] [place], [address] IG% 1.000 High 0.0-0.9 [facility] Comment on above: Result Comment: IG% - Immature Granulocytes (promyelocytes, myelocytes and metamyelocytes) > 1% indicates that a LEFT SHIFT is Present. Performed By: #### L 100.0100, L300.8000, L503.6620, L500.2500, L501.4020 ####[facility] [address] [place], [address] Lymphocytes/100 WBC (Bld) 5.8 % Low 19-41 [facility] Comment on above: Performed By: #### L 100.0100, L300.8000, L503.6620, L500.2500, L501.4020 ####[facility] [address] [place], [address] MCH (RBC) [Entitic mass] 30.8 pg Normal 27.0-32.0 [facility] Comment on above: Performed By: #### L 100.0100, L300.8000, L503.6620, L500.2500, L501.4020 ####[facility] [address] [place], [address] MCHC (RBC) [Mass/Vol] 33.8 g/dL Normal 32-36 [facility] Comment on above: Performed By: #### L 100.0100, L300.8000, L503.6620, L500.2500, L501.4020 ####[facility] [address] [place], [address] MCV (RBC) [Entitic vol] 91.1 fL Normal 80-94 [facility] Comment on above: Performed By: #### L 100.0100, L300.8000, L503.6620, L500.2500, L501.4020 ####[facility] [address] [place], [address] Monocytes/100 WBC (Bld) 8.1 % Normal 0-10 [facility] Comment on above: Performed By: #### L 100.0100, L300.8000, L503.6620, L500.2500, L501.4020 ####[facility] [address] [place], [address] Neutrophils/100 WBC (Bld) 83.5 % High 47-70 [facility] Comment on above: Performed By: #### L 100.0100, L300.8000, L503.6620, L500.2500, L501.4020 ####[facility] [address] [place], [address] Nucleated RBC (Bld) [#/Vol] 0 10*3/uL Normal 0-5 [facility] Comment on above: Performed By: #### L 100.0100, L300.8000, L503.6620, L500.2500, L501.4020 ####[facility] [address] [place], [address] Platelet mean volume (Bld) [Entitic vol] 10.8 fL Normal 6.2-12.0 [facility] Comment on above: Performed By: #### L 100.0100, L300.8000, L503.6620, L500.2500, L501.4020 ####[facility] [address] [place], [address] Platelets (Bld) [#/Vol] 264 10*3/uL Normal 150-450 [facility] Comment on above: Performed By: #### L 100.0100, L300.8000, L503.6620, L500.2500, L501.4020 ####[facility] [address] [place], [address] RBC (Bld) [#/Vol] 5.07 10*6/uL Normal 4.6-6.2 [facility] Comment on above: Performed By: #### L 100.0100, L300.8000, L503.6620, L500.2500, L501.4020 ####[facility] [address] [place], [address] RDW SD 53.1 fl High 35.1-43.9 [facility] Comment on above: Performed By: #### L 100.0100, L300.8000, L503.6620, L500.2500, L501.4020 ####[facility] [address] [place], [address] WBC (Bld) [#/Vol] 8.4 10*3/uL Normal 4.4-11.0 [facility] Comment on above: Performed By: #### L 100.0100, L300.8000, L503.6620, L500.2500, L501.4020 ####[facility] [address] [place], [address] Chest PA and Lateralon 02-08 Chest PA and Lateral [facility] Imaging Services [address] [place] [place] [address] Chest PA and Lateral MR#: [id number] Acct: [id number] Name: CLARK LYLES Rep #: [id number] : 1935 M 88 From: Yana Sampson MD PCP: CHRISTINE Brown Status: REG ER Study: Chest PA and Lateral Date of Exam: 02/09/24 Exam# [id number] Ordering Dr: Tamra Ivey MD [id number] INDICATION: Shortness of breath EXAMINATION/TECHNIQUE: X-RAY - [...] EDT , CC: Dr. Tamra Ivey MD; HCRISTINE Brown [employer] Teacher: Signed Normal [facility] D-Dimer Quantitative (DVT/PE )on 02-09-2024 D-DIMER QUANT 0.34 FEU/ug/m Normal 0.27-0.49 [facility] Comment on above: Result Comment: NORM AL D-Dimer level (<0.50) indicates no DVT or PE. Performed By: #### L 100.0100, L300.8000, L503.6620, L500.2500, L501.4020 ####[facility] [address] [facility] [place], [address] Emergency Department Summary on 02-09-2024 Emergency Department Summary [facility] Medical Records Department [address] [place] [address] Emergency Department Summary 02/09/24 MR#: [id number] Acct: [id number] Name: CLARK LYLES Rep #: [id number] : 1935 88 From: Tamra Ivey MD [...] CHF. He has not noted peripheral swelling. [facility] Medical History COVID-19 virus detected (08/23/20) Anxiety and depression Chronic anemia Acute respiratory failure with hypoxia Hypoxia Pneumonia due to COVID-19 virus GI bleed (12/2019) Atherosclerosis of coronary artery of apache heart without angina pectoris Peripheral vascular occlusive [...] Neurologic Neurologi (more content not included)... Normal [facility] L501.4020on 02-09-2024 TROPONIN-I HS 7 pg/mL Normal 3.0-78.0 [facility] Comment on above: Order Comment: 'TROP ' Serial specimen #1, #2 or #3: 1 Result Comment: Peg jiménez Note: New Test Units and Gender Specific Reference Ranges. For more information see Policy Stat Procedure [place] High Sensitivity Troponin (TNIH) and attachments. Performed By: #### L 100.0100, L300.8000, L503.6620, L500.2500, L501.4020 ####[facility] [address] [place], [address] [facility] 12-28-2023 [facility] ([facility]) CLARK LYLES ([id number]) 1935 M Date Time Provider Department 12/28/23 WALTER GOMEZ [facility] During your visit today, we recorded the [...] Meds Comments as of 04/18/2021: Taking Saw [place]. Problem List As Of Date 12/28/2023 Noted [...] chronic blood los*01/27/2020 Coronary artery disease involving apache rabago*12/22/2020 S/P primary angioplasty with coronary stent [Z9*12/22/2020 Fall from standing [W19.XXXA] 09/20/2021 Encounter for support and coordination of trans*08/11/2023 Acute respiratory failure with hypoxia (HCC) [J*09/25/2023 Letter Text Encounter Status:Closed by SHIRLEY RIVERA on 01/04/24 Normal [facility] CBC W Auto Differential pane l (Bld)on 12-27-2023 Basophils (Bld) [#/Vol] 0.04 10*3/uL Normal <0.11 [facility] Comment on above: Order Comment: Speci men Type: BLOOD SPECIMENOrdering Facility: [facility] Address: [address] [place] [address] Performed By: #### 5 7021-8 ####[facility] LABCLIA [id number] [place] [address] [place] Basophils/100 WBC (Bld) 0.5 % Normal [facility] Comment on above: Order Comment: Speci men Type: BLOOD SPECIMENOrdering Facility: [facility] Address: [address] [place] [address] Performed By: #### 5 7021-8 ####[facility] LABCLIA [id number] [place] [address] [place] Differential cell count method Nom (Bld) Auto Normal [facility] Comment on above: Order Comment: Speci men Type: BLOOD SPECIMENOrdering Facility: [facility] Address: [address] [place] [address] Performed By: #### 5 7021-8 ####[facility] LABCLIA [id number] [place] [address] [place] Eosinophils (Bld) [#/Vol] 0.36 10*3/uL Normal <0.46 [facility] Comment on above: Order Comment: Speci men Type: BLOOD SPECIMENOrdering Facility: [facility] Address: [address] [place] [address] Performed By: #### 5 7021-8 ####[facility] LABCLIA [id number] [place] [address] [place] Eosinophils/100 WBC (Bld) 4.5 % Normal [facility] Comment on above: Order Comment: Speci men Type: BLOOD SPECIMENOrdering Facility: [facility] Address: [address] [place] [address] Performed By: #### 5 7021-8 ####[facility] LABCLIA [id number] [place] [address] [place] Erythrocyte distribution width (RBC) [Ratio] 16.4 % High 11.5-15.0 [facility] Comment on above: Order Comment: Speci men Type: BLOOD SPECIMENOrdering Facility: [facility] Address: [address] [place] [address] Performed By: #### 5 7021-8 ####[facility] LABCLIA [id number] [place] [address] [place] Hematocrit (Bld) [Volume fraction] 47.6 % Normal 39.0-51.0 [facility] Comment on above: Order Comment: Speci men Type: BLOOD SPECIMENOrdering Facility: [facility] Address: [address] [place] [address] Performed By: #### 5 7021-8 ####[facility] LABCLIA [id number] [place] [address] [place] Hemoglobin (Bld) [Mass/Vol] 15.7 g/dL Normal 13.0-17.0 [facility] Comment on above: Order Comment: Speci men Type: BLOOD SPECIMENOrdering Facility: [facility] Address: [address] [place] [address] Performed By: #### 5 7021-8 ####[facility] LABCLIA [id number] [place] [address] [place] Immature granulocytes (Bld) [#/Vol] 0.07 10*3/uL Normal <0.10 [facility] Comment on above: Order Comment: Speci men Type: BLOOD SPECIMENOrdering Facility: [facility] Address: [address] [place] [address] Performed By: #### 5 7021-8 ####[facility] LABCLIA [id number] [place] [address] [place] Immature granulocytes/100 WBC (Bld) 0.9 % Normal [facility] Comment on above: Order Comment: Speci men Type: BLOOD SPECIMENOrdering Facility: [facility] Address: [address] [place] [address] Performed By: #### 5 7021-8 ####[facility] LABCLIA [id number] [place] [address] [place] Lymphocytes (Bld) [#/Vol] 0.72 10*3/uL Low 1.00-4.00 [facility] Comment on above: Order Comment: Speci men Type: BLOOD SPECIMENOrdering Facility: [facility] Address: [address] [place] [address] Performed By: #### 5 7021-8 ####[facility] LABIA [id number] [place] [address] [place] Lymphocytes/100 WBC (Bld) 8.9 % Normal [facility] Comment on above: Order Comment: Speci men Type: BLOOD SPECIMENOrdering Facility: [facility] Address: [address] [place] [address] Performed By: #### 5 7021-8 ####[facility] LABCLIA [id number] [place] [address] [place] MCH (RBC) [Entitic mass] 30.5 pg Normal 26.0-34.0 [facility] Comment on above: Order Comment: Speci men Type: BLOOD SPECIMENOrdering Facility: [facility] Address: [address] [place] [address] Performed By: #### 5 7021-8 ####[facility] LABCLIA [id number] [place] [address] [place] MCHC (RBC) [Mass/Vol] 33.0 g/dL Normal 30.5-36.0 [facility] Comment on above: Order Comment: Speci men Type: BLOOD SPECIMENOrdering Facility: [facility] Address: [address] [place] [address] Performed By: #### 5 7021-8 ####[facility] LABCLIA [id number] [place] [address] [place] MCV (RBC) [Entitic vol] 92.6 fL Normal 80.0-100.0 [facility] Comment on above: Order Comment: Speci men Type: BLOOD SPECIMENOrdering Facility: [facility] Address: [address] [place] [address] Performed By: #### 5 7021-8 ####[facility] LABCLIA [id number] [place] [address] [place] Monocytes (Bld) [#/Vol] 0.84 10*3/uL Normal <0.87 [facility] Comment on above: Order Comment: Speci men Type: BLOOD SPECIMENOrdering Facility: [facility] Address: [address] [place] [address] Performed By: #### 5 7021-8 ####[facility] LABIA [id number] [place] [address] [place] Monocytes/100 WBC (Bld) 10.4 % Normal [facility] Comment on above: Order Comment: Speci men Type: BLOOD SPECIMENOrdering Facility: [facility] Address: [address] [place] [address] Performed By: #### 5 7021-8 ####[facility] LABCLIA [id number] [place] [address] [place] Neutrophils (Bld) [#/Vol] 6.02 10*3/uL Normal 1.45-7.50 [facility] Comment on above: Order Comment: Speci men Type: BLOOD SPECIMENOrdering Facility: [facility] Address: [address] [place] [address] Performed By: #### 5 7021-8 ####[facility] LABCLIA [id number] [place] [address] [place] Neutrophils/100 WBC (Bld) 74.8 % Normal [facility] Comment on above: Order Comment: Speci men Type: BLOOD SPECIMENOrdering Facility: [facility] Address: [address] [place] [address] Performed By: #### 5 7021-8 ####[facility] LABIA [id number] [place] [address] [place] Nucleated RBC (Bld) [#/Vol] 10*3/uL Normal <0.01 [facility] Comment on above: Order Comment: Speci men Type: BLOOD SPECIMENOrdering Facility: [facility] Address: [address] [place] [address] Performed By: #### 5 7021-8 ####[facility] LABIA [id number] [place] [address] [place] Nucleated RBC/100 WBC (Bld) [Ratio] 0.0 /100 WBC Normal [facility] Comment on above: Order Comment: Speci men Type: BLOOD SPECIMENOrdering Facility: [facility] Address: [address] [place] [address] Performed By: #### 5 7021-8 ####[facility] LABCLIA [id number] [place] [address] [place] Platelet mean volume (Bld) [Entitic vol] 11.6 fL Normal 9.0-12.7 [facility] Comment on above: Order Comment: Speci men Type: BLOOD SPECIMENOrdering Facility: [facility] Address: [address] [place] [address] Performed By: #### 5 7021-8 ####[facility] LABCLIA [id number] [place] [address] [place] Platelets (Bld) [#/Vol] 209 10*3/uL Normal 150-400 [facility] Comment on above: Order Comment: Speci men Type: BLOOD SPECIMENOrdering Facility: [facility] Address: [address] [place] [address] Performed By: #### 5 7021-8 ####[facility] LABCLIA [id number] [place] [address] [place] RBC (Bld) [#/Vol] 5.14 10*6/uL Normal 4.20-6.00 [facility] Comment on above: Order Comment: Speci men Type: BLOOD SPECIMENOrdering Facility: [facility] Address: [address] [place] [address] Performed By: #### 5 7021-8 ####[facility] LABCLIA [id number] [place] [address] [place] WBC (Bld) [#/Vol] 8.05 10*3/uL Normal 3.70-11.00 [facility] Comment on above: Order Comment: Speci men Type: BLOOD SPECIMENOrdering Facility: [facility] Address: [address] [place] [address] Performed By: #### 5 7021-8 ####[facility] LABCLIA [id number] [place] [address] [place] Comprehensive metabolic 2000 panelon 12-27-2023 Albumin [Mass/Vol] 4.3 g/dL Normal 3.9-4.9 [facility] Comment on above: Order Comment: Speci men Type: BLOOD SPECIMENOrdering Facility: [facility] Address: [address] [place] [address] Performed By: #### 2 4323-8, 45354-9, 02716-4 ####[facility] LABCLIA [id number] [place] [address] [place] ALP [Catalytic activity/Vol] 57 U/L Normal 38-113 [facility] Comment on above: Order Comment: Speci men Type: BLOOD SPECIMENOrdering Facility: [facility] Address: [address] [place] [address] Performed By: #### 2 4323-8, 28321-1, ####[facility] LABCLIA [id number] [place] [address] [place] ALT [Catalytic activity/Vol] 15 U/L Normal 10-54 [facility] Comment on above: Order Comment: Speci men Type: BLOOD SPECIMENOrdering Facility: [facility] Address: [address] [place] [address] Performed By: #### 2 4323-8, , ####[facility] LABCLIA [id number] [place] [address] [place] Anion gap [Moles/Vol] 13 mmol/L Normal 9-18 [facility] Comment on above: Order Comment: Speci men Type: BLOOD SPECIMENOrdering Facility: [facility] Address: [address] [place] [address] Performed By: #### 2 4323-8, , ####[facility] LABCLIA [id number] [place] [address] [place] AST [Catalytic activity/Vol] 19 U/L Normal 14-40 [facility] Comment on above: Order Comment: Speci men Type: BLOOD SPECIMENOrdering Facility: [facility] Address: [address] [place] [address] Performed By: #### 2 4323-8, , ####[facility] LABCLIA [id number] [place] [id number] [place] Bilirubin [Mass/Vol] 1.3 mg/dL Normal 0.2-1.3 [facility] Comment on above: Order Comment: Speci men Type: BLOOD SPECIMENOrdering Facility: [facility] Address: [address] [place] [address] Performed By: #### 2 4323-8, , ####[facility] LABCLIA [id number] [address] [address] [place] Calcium [Mass/Vol] 9.0 mg/dL Normal 8.5-10.2 [facility] Comment on above: Order Comment: Speci men Type: BLOOD SPECIMENOrdering Facility: [facility] Address: [address] [place], [place] [address] Performed By: #### 2 4323-8, , ####[facility] LABCLIA [id number] [place] [id number] [place] Chloride [Moles/Vol] 106 mmol/L High 97-105 [facility] Comment on above: Order Comment: Speci men Type: BLOOD SPECIMENOrdering Facility: [facility] Address: [address] [place] [address] Performed By: #### 2 4323-8, , ####[facility] LABCLIA [id number] [place] [id number] [place] CO2 [Moles/Vol] 23 mmol/L Normal 22-30 [facility] Comment on above: Order Comment: Speci men Type: BLOOD SPECIMENOrdering Facility: [facility] Address: [address] [place] [address] Performed By: #### 2 4323-8, , ####[facility] LABCLIA [id number] [address] [address] [place] Creatinine [Mass/Vol] 1.00 mg/dL Normal 0.73-1.22 [facility] Comment on above: Order Comment: Speci men Type: BLOOD SPECIMENOrdering Facility: [facility] Address: [address] [place] [address] Performed By: #### 2 4323-8, 92201-4, 83884-7 ####[facility] LABCLIA [id number] [place] [id number] [place] Creatinine and Glomerular filtration rate.predicted panel (S/P/Bld) 73 mL/min/1.73m??? Normal >=60 [facility] Comment on above: Order Comment: Kailey simons Type: BLOOD SPECIMENOrdering Facility: [facility] Address: [address] [place] [address] Result Comment: Louann mated Glomerular Filtration Rate [...] actual GFR. Performed By: #### 2 4323-8, 42329-3, 96117-5 ####[facility] LABCLIA [id number] [place] [id number] [place] Glucose [Mass/Vol] 93 mg/dL Normal 74-99 [facility] Comment on above: Order Comment: Kailey simons Type: BLOOD SPECIMENOrdering Facility: [facility] Address: [address] [place] [address] Result Comment: The Citizen [place] Diabetes Association (ADA) provides guidance for cutoff [...] Standards of Medical Care in Diabetes 2016, Citizen [place] Diabetes Association. Diabetes Care. 2016.39(Suppl 1). Performed By: #### 2 4323-8, 67317-1, 96188-9 ####[facility] LABCLIA [id number] [address] [address] [place] Potassium [Moles/Vol] 4.0 mmol/L Normal 3.7-5.1 [facility] Comment on above: Order Comment: Speci men Type: BLOOD SPECIMENOrdering Facility: [facility] Address: [address] [place] [address] Performed By: #### 2 4323-8, , 91058-4 ####[facility] LABCLIA [id number] [place] [address] [place] Protein [Mass/Vol] 6.0 g/dL Low 6.3-8.0 [facility] Comment on above: Order Comment: Speci men Type: BLOOD SPECIMENOrdering Facility: [facility] Address: [address] [place] [address] Performed By: #### 2 4323-8, , 95810-5 ####[facility] LABIA [id number] [place] [address] [place] Sodium [Moles/Vol] 142 mmol/L Normal 136-144 [facility] Comment on above: Order Comment: Speci men Type: BLOOD SPECIMENOrdering Facility: [facility] Address: [address] [place] [address] Performed By: #### 2 4323-8, , 71528-1 ####[facility] LABCLIA [id number] [address] [address] [place] Urea nitrogen [Mass/Vol] 15 mg/dL Normal 9-24 [facility] Comment on above: Order Comment: Speci men Type: BLOOD SPECIMENOrdering Facility: [facility] Address: [address] [place] [address] Performed By: #### 2 4323-8, , ####[facility] LABCLIA [id number] [place] [address] [place] Lipid 1996 panelon 4 Cholesterol [Mass/Vol] 131 mg/dL Normal <200 [facility] Comment on above: Order Comment: Speci men Type: BLOOD SPECIMENOrdering Facility: [facility] Address: [facility] [place] [address] Result Comment: <200 mg/dL, Desirable 200-239 mg/dL, Borderline high >239 mg/dL, High Performed By: #### 2 4323-8, , ####[facility] LABCLIA [id number] [address] [place] Cholesterol in HDL [Mass/Vol] 38 mg/dL Low >39 [facility] Comment on above: Order Comment: Speci men Type: BLOOD SPECIMENOrdering Facility: [facility] Address: [address] [place] [address] Result Comment: 40-5 9 mg/dL, Acceptable >59 mg/dL, High: Negative risk factor for coronary heart disease <40 mg/dL, Low: Positive risk factor for coronary heart disease Performed By: #### 2 4323-8, , ####[facility] LABCLIA [id number] [address] [place] Cholesterol in LDL [Mass/Vol] 75 mg/dL Normal <100 [facility] Comment on above: Order Comment: Speci men Type: BLOOD SPECIMENOrdering Facility: [facility] Address: [address] [place] [address] Result Comment: <100 mg/dL, Optimal 100-129 mg/dL, Near optimal/above optimal 130-159 mg/dL, Borderline high 160-189 mg/dL, High >189 mg/dL, Very high Secondary prevention optimal LDL Cholesterol levels are recommended to be < 70 mg/dL Performed By: #### 2 4323-8, , ####[facility] LABCLIA [id number] [place] [address] [place] Cholesterol in LDL/Cholesterol in HDL [Mass ratio] 1.97 {ratio} Normal <2.54 [facility] Comment on above: Order Comment: Speci men Type: BLOOD SPECIMENOrdering Facility: [facility] Address: [address] [place] [address] Result Comment: Refe rence: 1. National Cholesterol Education Program ATP III Guideline At-A-Glance Quick Desk Reference: National Heart, Lung, and Blood [place]. National Institutes of Health. 2001: NIH Publication No. 01-3305. 2. An International Atherosclerosis Society position paper: global recommendations for the management of dyslipidemia: executive summary, Atherosclerosis. 2014: 232(2):410-413. Performed By: #### 2 4323-8, , ####[facility] LABCLIA [id number] [place] [address] [place] Cholesterol in VLDL [Mass/Vol] 18 mg/dL Normal <30 [facility] Comment on above: Order Comment: Speci men Type: BLOOD SPECIMENOrdering Facility: [facility] Address: [address] [place] [address] Performed By: #### 2 4323-8, , ####[facility] LABCLIA [id number] [place] [address] [place] Cholesterol non HDL [Mass/Vol] 93 mg/dL Normal <130 [facility] Comment on above: Order Comment: Speci men Type: BLOOD SPECIMENOrdering Facility: [facility] Address: [address] [place] [address] Result Comment: <130 mg/dL, Optimal 130-159 mg/dL, Near optimal/above optimal 160-189 mg/dL, Borderline high 190-219 mg/dL, High >219 mg/dL, Very high Secondary prevention optimal non HDL Cholesterol levels are recommended to be <100 mg/dL Performed By: #### 2 4323-8, , 23915-4 ####[facility] LABCLIA [id number] [address] [address] [place] Cholesterol.total/Chol esterol in HDL [Mass ratio] 3.45 {ratio} Normal <5.10 [facility] Comment on above: Order Comment: Speci men Type: BLOOD SPECIMENOrdering Facility: [facility] Address: [address] [place] [address] Performed By: #### 2 4323-8, , 18865-6 ####[facility] LABIA [id number] [place] [address] [place] FASTING TIME 12 hrs Normal [facility] Comment on above: Order Comment: Speci men Type: BLOOD SPECIMENOrdering Facility: [facility] Address: [address] [place] [address] Performed By: #### 2 4323-8, , ####[facility] LABIA [id number] [place] [address] [place] Triglyceride [Mass/Vol] 91 mg/dL Normal <150 [facility] Comment on above: Order Comment: Speci men Type: BLOOD SPECIMENOrdering Facility: [facility] Address: [address] [place] [address] Result Comment: <150 mg/dL, Normal 150-199 mg/dL, Borderline high 200-499 mg/dL, High >499 mg/dL, Very high Performed By: #### 2 4323-8, , 17280-7 ####[facility] LABIA [id number] [place] [id number] [place] Magnesium SerPl-mCncon 12-26 Magnesium [Mass/Vol] 2.1 mg/dL Normal 1.7-2.3 [facility] Comment on above: Order Comment: Speci men Type: BLOOD SPECIMENOrdering Facility: [facility] Address: [address] [place] [address] Performed By: #### 2 4323-8, 27446-3, 03311-1 ####[facility] SUZANNE [id number] [id number] [address] [place] CARLOVon 12-25-2023 CNOV Office Visit (FAMPWS ) CLARK LYLES ([id number]) 1935 M Date Time Provider Department 12/25/23 9:00 AM [facility] During [facility] visit today, we recorded the following information about you: Pulse Respiration Blood pressure Weight 61/minute 16/minute 120/68 72.1 kg Radha Durbin PA-C 12/26/2023 2:22 PM Signed 88 year old male with c/o here for follow up. 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 08/02/2023 echocardiogram [facility]: LV size WNL, mild concentric LVH, [...] to suggest ischemia. 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 [...] Lymph 1.00 - 4.00 k/uL 0.81 (L) Nolan% % 9.0 Abs Nolan <0.87 k/uL 0.99 (H) Eosin% % 2.6 [...] included)... Normal [facility] Absolute lymphocyte countOrd ered By: Jerrell Faith on 08-04-2023 Lymphocytes Auto (Unsp spec) [#/Vol] 0.71 10*3/uL 0.83-4.51 [facility] Basophil percentageOrdered B y: Jerrell Faith on 08-04-2023 Basophils/100 WBC (Bld) 0.4 % 0-1 [facility] Chloride [Moles/Vol] 113 mmol/L 98-107 [facility] Eosinophils/100 WBC (Bld) 4.1 % 0-5 [facility] Glucose [Mass/Vol] 96 mg/dL 74-106 [facility] Neutrophils (Bld) [#/Vol] 6.1 10*3/uL 2.0-7.7 [facility] Neutrophils/100 WBC (Bld) 76.4 % 47-70 [facility] Potassium [Moles/Vol] 4.1 mmol/L 3.5-5.1 [facility] Sodium [Moles/Vol] 141 mmol/L 136-145 [facility] WBC (Bld) [#/Vol] 8.0 10*3/uL 4.4-11.0 [facility] Blood erythrocytes count (nu mber/volume)Ordered By: Jerrell Faith on 08-04-2023 RBC (Bld) [#/Vol] 4.52 10*6/uL 4.6-6.2 [facility] Blood hemoglobin measurement (mass/volume)Ordered By: Jerrell Faith on 08-04-2023 Hemoglobin (Bld) [Mass/Vol] 13.4 g/dL 13.0-16.5 [facility] [facility] Blood lymphocytes/100 leukoc ytesOrdered By: Jerrell Faith on 08-04-2023 Lymphocytes/100 WBC (Bld) 8.9 % 19-41 [facility] Blood monocytes/100 leukocyt esOrdered By: Jerrell Faith on 08-04-2023 Monocytes/100 WBC (Bld) 9.4 % 0-10 [facility] Blood platelet mean volumeOr dered By: Jerrell Faith on 08-04-2023 Platelet mean volume (Bld) [Entitic vol] 10.7 fL 6.2-12.0 [facility] Determination of erythrocyte mean corpuscular volume (MCV)Ordered By: Jerrell Faith on 08-04-2023 MCV (RBC) [Entitic vol] 92.3 fL 80-94 [facility] Hematocrit Auto (Bld) [Volum e fraction]Ordered By: Jerrell Faith on 08-04-2023 Hematocrit (Bld) [Volume fraction] 41.7 % 40-54 [facility] Laboratory - Chemistry and C hemistry - challengeOrdered By: Jerrell Faith on 08-04-2023 CO2 [Moles/Vol] 25.0 mmol/L 21.0-32.0 [facility] Urea nitrogen/Creatinine [Mass ratio] 22.1 mg/mg 10-20 [facility] Laboratory - Hematology and Cell countsOrdered By: Jerrell Faith on 08-04-2023 Erythrocyte distribution width (RBC) [Entitic vol] 49.3 fL 35.1-43.9 [facility] Erythrocyte distribution width (RBC) [Ratio] 14.6 % 11.6-14.6 [facility] Immature granulocytes/100 WBC (Bld) 0.800 % 0.0-0.9 [facility] Comment on above: IG% - Immature Granu locytes (promyelocytes, myelocytes and metamyelocytes) > 1% indicates that a LEFT SHIFT is Present. MCH (RBC) [Entitic mass] 29.6 pg 27.0-32.0 [facility] Nucleated RBC/100 WBC (Bld) [Ratio] 0 % 0-5 [facility] MCHC Auto (RBC) [Mass/Vol]Or dered By: Jerrell Faith on 08-04-2023 MCHC (RBC) [Mass/Vol] 32.1 g/dL 32-36 [facility] No Panel InformationOrdered By: Jerrell Faith on 08-04-2023 Estimated Creatinine Clearance Calc 66.51 ml/min [facility] Estimated GFR (MDRD) Amer 115 mL/min >60 [facility] Comment on above: GFR Calc Estimated GFR (MDRD) Non-Af Amer 95 mL/min >60 [facility] Comment on above: Non- GFR Calc Platelets bldOrdered By: Ismael Faith on 08-04-2023 Platelets (Bld) [#/Vol] 186 10*3/uL 150-450 [facility] Serum or plasma calcium nichole urement (mass/volume)Ordered By: Jerrell Faith on 08-04-2023 Calcium [Mass/Vol] 8.9 mg/dL 8.5-10.1 [facility] Serum or plasma creatinine m easurement (mass/volume)Ordered By: Jerrell Faith on 08-04-2023 Creatinine [Mass/Vol] 0.82 mg/dL 0.70-1.30 [facility] Comment on above: The validity of the calculated GFR & GFRAA in patients over 70 years has not been determined. Clinical correlation is essential. Serum or plasma urea nitroge n measurement (mass/volume)Ordered By: Jerrell Faith on 08-04-2023 Urea nitrogen [Mass/Vol] 18 mg/dL 7-18 [facility] Thin prep Papanicolaou smear with manual screeningOrdered By: Jerrell Faith on 08-04-2023 Thin prep Papanicolaou smear with manual screening 3 5-15 [facility] Basophil percentageOrdered B y: Jerrell Faith on 08-03-2023 Basophil percentage 2.1 mg/dL 2.5-4.9 [facility] Bilirubin [Mass/Vol] 0.30 mg/dL 0.20-1.00 [facility] Comment on above: For patients on eltr ombopag therapy, use of Dimension [place] TBIL is not recommended. Protein [Mass/Vol] 5.6 g/dL 6.4-8.2 [facility] Clostridium difficile detect ion by polymerase chain reactionOrdered By: Jerrell Faith on 08-03-2023 C. difficile DNA CAMERON+probe Ql (Unsp spec) [facility] Laboratory - Chemistry and C hemistry - challengeOrdered By: Jerrell Faith on 08-03-2023 ALP [Catalytic activity/Vol] 46 U/L 45-117 [facility] ALT [Catalytic activity/Vol] 18 U/L 16-61 [facility] Globulin (S) [Mass/Vol] 2.6 g/dL 2.2-4.2 [facility] Magnesium [Mass/Vol] 1.9 mg/dL 1.6-2.6 [facility] Serum or plasma albumin nichole urement (mass/volume)Ordered By: Jerrell Faith on 08-03-2023 Albumin [Mass/Vol] 3.0 g/dL 3.2-5.0 [facility] Serum or plasma albumin/glob ulin mass ratioOrdered By: Jerrell Faith on 08-03-2023 Albumin/Globulin [Mass ratio] 1.2 {ratio} 0.9-2.4 [facility] Thin prep Papanicolaou smear with manual screeningOrdered By: Jerrell Faith on 08-03-2023 Thin prep Papanicolaou smear with manual screening 10 U/L 15-37 [facility] Blood manual differential co mment interpretation (narrative result)Ordered By: Jasmine Tan on 08-02-2023 Manual differential comment Héctor (Bld) [Interp] COMMENT [facility] Comment on above: LYMPHOPENIA. Urine Legionella pneumophila antigen detectionOrdered By: Jasmine Tan on 08-02-2023 L. pneumophila Ag Ql (U) [facility] Absolute lymphocyte countOrd ered By: Lewis Sutton on 08-01-2023 Lymphocytes Auto (Unsp spec) [#/Vol] 0.52 10*3/uL 0.83-4.51 [facility] Basophil percentageOrdered B y: Lewis Sutton on 08-01-2023 Basophils/100 WBC (Bld) 0.2 % 0-1 [facility] Chloride [Moles/Vol] 103 mmol/L 98-107 [facility] Eosinophils/100 WBC (Bld) 0.9 % 0-5 [facility] Glucose [Mass/Vol] 117 mg/dL 74-106 [facility] Comment on above: Fasting Glucose resu lt from 100 to 125 mg/dL suggests IMPAIRED HOMEOSTASIS per A.D.A. criteria. Neutrophils (Bld) [#/Vol] 7.6 10*3/uL 2.0-7.7 [facility] Neutrophils/100 WBC (Bld) 82.0 % 47-70 [facility] Potassium [Moles/Vol] 3.1 mmol/L 3.5-5.1 [facility] Sodium [Moles/Vol] 136 mmol/L 136-145 [facility] WBC (Bld) [#/Vol] 9.2 10*3/uL 4.4-11.0 [facility] Blood erythrocytes count (nu mber/volume)Ordered By: Lewis Sutton on 08-01-2023 RBC (Bld) [#/Vol] 4.78 10*6/uL 4.6-6.2 [facility] Blood hemoglobin measurement (mass/volume)Ordered By: Lewis Sutton on 08-01-2023 Hemoglobin (Bld) [Mass/Vol] 14.8 g/dL 13.0-16.5 [facility] Blood lymphocytes/100 leukoc ytesOrdered By: Lewis Sutton on 08-01-2023 Lymphocytes/100 WBC (Bld) 5.7 % 19-41 [facility] Blood manual differential co mment interpretation (narrative result)Ordered By: Lewis Sutton on 08-01-2023 Manual differential comment Héctor (Bld) [Interp] SCANNED [facility] Blood monocytes/100 leukocyt esOrdered By: Lewis Sutton on 08-01-2023 Monocytes/100 WBC (Bld) 10.3 % 0-10 [facility] Blood platelet mean volumeOr dered By: Lewis Sutton on 08-01-2023 Platelet mean volume (Bld) [Entitic vol] 11.5 fL 6.2-12.0 [facility] Determination of erythrocyte mean corpuscular volume (MCV)Ordered By: Lewis Sutton on 08-01-2023 MCV (RBC) [Entitic vol] 89.5 fL 80-94 [facility] Hematocrit Auto (Bld) [Volum e fraction]Ordered By: Lewis Sutton on 08-01-2023 Hematocrit (Bld) [Volume fraction] 42.8 % 40-54 [facility] Influenza virus A and B and SARS-CoV-2 (COVID-19) Ag panel - Upper respiratory specimOrdered By: Lewis Sutton on 08-01-2023 SARS-CoV-2 (COVID-19) RNA CAMERON+probe Ql (Resp) [facility] Laboratory - Chemistry and C hemistry - challengeOrdered By: Lewis Sutton on 08-01-2023 CO2 [Moles/Vol] 26.0 mmol/L 21.0-32.0 [facility] Natriuretic peptide B (Bld) [Mass/Vol] 198.3 pg/mL 0-100 [facility] Urea nitrogen/Creatinine [Mass ratio] 11.8 mg/mg 10-20 [facility] Laboratory - Hematology and Cell countsOrdered By: Lewis Sutton on 08-01-2023 Erythrocyte distribution width (RBC) [Entitic vol] 46.8 fL 35.1-43.9 [facility] Erythrocyte distribution width (RBC) [Ratio] 14.3 % 11.6-14.6 [facility] Immature granulocytes/100 WBC (Bld) 0.900 % 0.0-0.9 [facility] Comment on above: IG% - Immature Granu locytes (promyelocytes, myelocytes and metamyelocytes) > 1% indicates that a LEFT SHIFT is Present. MCH (RBC) [Entitic mass] 31.0 pg 27.0-32.0 [facility] Nucleated RBC/100 WBC (Bld) [Ratio] 0 % 0-5 [facility] Laboratory - Microbiology an d Antimicrobial susceptibilityOrdered By: Jasmine Tan on 08-01-2023 SARS-CoV-2 (COVID-19) RNA CAMERON+probe Ql (Unsp spec) [facility] MCHC Auto (RBC) [Mass/Vol]Or dered By: Lewis Sutton on 08-01-2023 MCHC (RBC) [Mass/Vol] 34.6 g/dL 32-36 [facility] No Panel InformationOrdered By: Lewis Sutton on 08-01-2023 D-Dimer Quantitative (PE/DVT) 0.47 FEU/ug/m 0.27-0.49 [facility] Comment on above: NORMAL D-Dimer level (<0.50) indicates no DVT or PE. Estimated Creatinine Clearance Calc 50.69 ml/min [facility] Estimated GFR (MDRD) Amer 82 mL/min >60 [facility] Comment on above: GFR Calc Estimated GFR (MDRD) Non-Af Amer 68 mL/min >60 [facility] Comment on above: Non- GFR Calc Troponin I High Sensitivity 8 pg/mL 3.0-78.0 [facility] Comment on above: Please Note: [place] t Units and Gender Specific Reference Ranges. For more information see Policy Stat Procedure [place] High Sensitivity Troponin (TNIH) and attachments. Platelets bldOrdered By: Gabby Sutton on 08-01-2023 Platelets (Bld) [#/Vol] 175 10*3/uL 150-450 [facility] Respiratory pathogens detect ion panel by molecular detection methodOrdered By: Jasmine Tan on 08-01-2023 Respiratory pathogens DNA and RNA panel CAMERON+probe (Resp) [facility] Serum or plasma calcium nichole urement (mass/volume)Ordered By: Lewis Sutton on 08-01-2023 Calcium [Mass/Vol] 8.8 mg/dL 8.5-10.1 [facility] Serum or plasma creatinine m easurement (mass/volume)Ordered By: Lewis Sutton on 08-01-2023 Creatinine [Mass/Vol] 1.10 mg/dL 0.70-1.30 [facility] Comment on above: The validity of the calculated GFR & GFRAA in patients over 70 years has not been determined. Clinical correlation is essential. Serum or plasma urea nitroge n measurement (mass/volume)Ordered By: Lewis Sutton on 08-01-2023 Urea nitrogen [Mass/Vol] 13 mg/dL 7-18 [facility] Serum procalcitonin measurem entOrdered By: Jasmine Tan on 08-01-2023 Procalcitonin [Mass/Vol] 0.07 ng/mL 0.00-0.09 [facility] Comment on above: A procalcitonin (PCT [...] Papanicolaou smear with manual screening 7 5-15 [facility] CBC W Auto Differential pane l (Bld)on 06-28-2023 Basophils (Bld) [#/Vol] 0.05 10*3/uL <0.11 k/uL [facility] Basophils/100 WBC (Bld) 0.5 % [facility] Differential cell count method Nom (Bld) Auto [facility] Eosinophils (Bld) [#/Vol] 0.29 10*3/uL <0.46 k/uL [facility] Eosinophils/100 WBC (Bld) 2.6 % [facility] Erythrocyte distribution width (RBC) [Ratio] 13.9 % 11.5 - 15.0 % [facility] Hematocrit (Bld) [Volume fraction] 50.0 % 39.0 - 51.0 % [facility] Hemoglobin (Bld) [Mass/Vol] 16.7 g/dL 13.0 - 17.0 g/dL [facility] Immature granulocytes (Bld) [#/Vol] 0.10 10*3/uL High <0.10 k/uL [facility] Immature granulocytes/100 WBC (Bld) 0.9 % [facility] Lymphocytes (Bld) [#/Vol] 0.81 10*3/uL Low 1.00 - 4.00 k/uL [facility] Lymphocytes/100 WBC (Bld) 7.4 % [facility] MCH (RBC) [Entitic mass] 31.0 pg 26.0 - 34.0 pg [facility] MCHC (RBC) [Mass/Vol] 33.4 g/dL 30.5 - 36.0 g/dL [facility] MCV (RBC) [Entitic vol] 92.9 fL 80.0 - 100.0 fL [facility] Monocytes (Bld) [#/Vol] 0.99 10*3/uL High <0.87 k/uL [facility] Monocytes/100 WBC (Bld) 9.0 % [facility] Neutrophils (Bld) [#/Vol] 8.78 10*3/uL High 1.45 - 7.50 k/uL [facility] Neutrophils/100 WBC (Bld) 79.6 % [facility] Nucleated RBC (Bld) [#/Vol] <0.01 k/uL [facility] Nucleated RBC/100 WBC (Bld) [Ratio] 0.0 /100 WBC [facility] Platelet mean volume (Bld) [Entitic vol] 11.6 fL 9.0 - 12.7 fL [facility] Platelets (Bld) [#/Vol] 229 10*3/uL 150 - 400 k/uL [facility] RBC (Bld) [#/Vol] 5.38 10*6/uL 4.20 - 6.00 m/uL [facility] WBC (Bld) [#/Vol] 11.02 10*3/uL High 3.70 - 11.00 k/uL [facility] Comprehensive metabolic 2000 panelon 06-28-2023 Albumin [Mass/Vol] 4.3 g/dL 3.9 - 4.9 g/dL [facility] ALP [Catalytic activity/Vol] 53 U/L 38 - 113 U/L [facility] ALT [Catalytic activity/Vol] 26 U/L 10 - 54 U/L [facility] Anion gap [Moles/Vol] 9 mmol/L 9 - 18 mmol/L [facility] AST [Catalytic activity/Vol] 21 U/L 14 - 40 U/L [facility] Bilirubin [Mass/Vol] 1.1 mg/dL 0.2 - 1 .3 mg/dL [facility] Calcium [Mass/Vol] 9.8 mg/dL 8.5 - 10. 2 mg/dL [facility] Chloride [Moles/Vol] 103 mmol/L 97 - 10 5 mmol/L [facility] CO2 [Moles/Vol] 27 mmol/L 22 - 30 mmol/L [facility] Creatinine [Mass/Vol] 1.11 mg/dL 0.73 - 1.22 mg/dL [facility] Estimated Glomerular Filtration Rate 65 mL/min/1.73m >=60 mL/min/1.7 3m [facility] Glucose [Mass/Vol] 94 mg/dL 74 - 99 mg/dL [facility] Potassium [Moles/Vol] 4.1 mmol/L 3.7 - 5.1 mmol/L [facility] Protein [Mass/Vol] 6.3 g/dL 6.3 - 8.0 g/dL [facility] Sodium [Moles/Vol] 139 mmol/L 136 - 144 mmol/L [facility] Urea nitrogen [Mass/Vol] 16 mg/dL 9 - 24 mg/dL [facility] CTA ABD/PEL W IVCONon 2022 [facility] XR LUMBAR GENERAL 3V AP/LAT/ L5-S1on 01-31-2023 [facility] XR Lumbar spine 3 Viewson IMPRESSION: NO EVIDE NCE OF FRACTURE [employer] Teacher: GINNA Transcribe Date/Time: Jan 31 2023 11:11A Dictated by : RIVERA OLIVAS MD This examination was interpreted and the report reviewed and electronically signed by: RIVERA OLIVAS MD on Jan 31 2023 11:13AM [facility] DIVISION OF RADIOLOGY * * *Final [...] calcifications are noted. DIVISION OF RADIOLOGY Provider, [facility] - 01/31/2023 * * *Final Report* [...] noted. IMPRESSION IMPRESSION: NO EVIDENCE OF FRACTURE [employer] Teacher: PSCdA Transcribe Date/Time: Jan 31 2023 11:11A Dictated by : RIVERA OLIVAS MD This examination was interpreted and the report reviewed and electronically signed by: RIVERA OLIVAS MD on Jan 31 2023 11:13AM EST [facility] Radiology Study observation (narrative) [facility] XR Lumbar spine 3 ViewsOrder ed By: [facility] Provider on 01-31-2023 [facility] UA DIP, URINE (POC)on 2022 BILIRUBIN UA (POCT) Negative Negative [facility] CLARITY UA (POCT) [facility] COLOR UA (POCT) Yellow [facility] GLUCOSE UA (POCT) Negative Negative mg/dL [facility] HEMOGLOBIN/BLOOD UA (POCT) Negative Negative [facility] KETONE UA (POCT) Negative Negative mg/dL [facility] LEUKOCYTES UA (POCT) Negative Negative [facility] NITRITE UA (POCT) Negative Negative [facility] PH UA (POCT) 5.5 4.5 - 8.0 [facility] Protein Ql (U) Negative Negative mg/dL [facility] SPECIFIC GRAVITY UA (POCT) 1.015 1.005 - 1.030 [facility] UROBILINOGEN UA (POCT) 0.2 E.U./dL Stephany l E.U./dL [facility] Office Visit: PAD, recheck diane arriola 05-31-2017 Documentation of current medications (procedure) Done Invalid Interpretation Code [facility] [employer] Work Phone: Fall risk assessment No Invalid Interpretation Code [facility] [employer] Work Phone: Tobacco smoking status NHIS Never Invalid Interpretation Code [facility] [employer] Work Phone: Tobacco use CPHS Former smoker Invalid Interpretation Code [facility] [employer] Work Phone: Lab Report: Basic Metabolic Profile (BMP)on 05-18-2017 Anion gap 9 mmol/L Invalid Interpretation Code 5-15 [facility] [employer] Work Phone: [phone] Anion gap 4 molar conc 9 Invalid Interpretation Code 15 [facility] [employer] Work Phone: Calcium mass conc 8.8 mg/dL Invalid Interpretation Code 8.5-10.1 [facility] [employer] Work Phone: Chloride molar conc 108 mmol/L High 98-107 [facility] [employer] Work Phone: CO2 23.0 mmol/L Invalid Interpretation Code 21.0-32.0 [facility] [employer] Work Phone: [phone] CO2 ppres (BldV) 23.0 mmol/L Invalid Interpretation Code 21.0-32.0 [facility] [employer] Work Phone: Creatinine mass conc 0.80 mg/dL Invalid Interpretation Code 0.70-1.30 [facility] [employer] Work Phone: eGFR (non-black) 120 mL/min/{1.73_m2} Invalid Interpretation Code >60 [facility] [employer] Work Phone: EST GFR - AA 120 mL/min Invalid Interpretation Code >60 [facility] [employer] Work Phone: GFR/1.73 sq M predicted among non-blacks MDRD vol rate/area (S/P/Bld) 99 mL/min/{1.73_m2} Invalid Interpretation Code >60 [facility] [employer] Work Phone: Glucose mass conc 120 mg/dL High 70-110 [facility] [employer] Work Phone: Potassium molar conc 3.6 mmol/L Invalid Interpretation Code 3.5-5.1 [facility] [employer] Work Phone: Sodium molar conc 140 mmol/L Invalid Interpretation Code 136-145 [facility] [employer] Work Phone: Urea nitrogen mass conc 13 mg/dL Invalid Interpretation Code 7-18 [facility] [employer] Work Phone: Urea nitrogen/Creatinine mass ratio 16.3 RATIO Invalid Interpretation Code 05-18 [facility] [employer] Work Phone: Office Visit: Awilda 05-08-20 17 Documentation of current medications (procedure) Done Invalid Interpretation Code [facility] [employer] Work Phone: Fall risk assessment No Invalid Interpretation Code [facility] [employer] Work Phone: Protein mass conc Done Invalid Interpretation Code [facility] [employer] Work Phone: Tobacco smoking status NHIS Never Invalid Interpretation Code [facility] [employer] Work Phone: Tobacco smoking status NHIS Former smoker Invalid Interpretation Code [facility] [employer] Work Phone: Tobacco use HS Former smoker Invalid Interpretation Code [facility] [employer] Work Phone: Vital Signs Date Time Vital Sign Value Performing Clinician Facility 02-08-2025 20:35-0400 Inhaled oxygen flow rate 8 L/min Brigitte Suppan PHOTO FINISH PHOTOGRAPHER Work Phone: [facility] 02-08-2025 20:35-0400 SaO2% (BldA) [Mass fraction] 90 % Brigitte Suppan PHOTO FINISH PHOTOGRAPHER Work Phone: [facility] 02-08-2025 20:08-0400 Body height 177.8 cm Brigitte Suppan PHOTO FINISH PHOTOGRAPHER Work Phone: [phone] [place] [address] 02-08-2025 20:08-0400 Body mass index (BMI) [Ratio] 22.1 kg/m2 Brigitte Suppan PHOTO FINISH PHOTOGRAPHER Work Phone: [facility] 02-08-2025 20:08-0400 Body weight 70 kg Brigitte Suppan PHOTO FINISH PHOTOGRAPHER Work Phone: [facility] 02-08-2025 19:45-0400 Body temperature 98.3 [degF] Brigitte Suppan PHOTO FINISH PHOTOGRAPHER Work Phone: [phone] [place] [address] 02-08-2025 19:45-0400 Diastolic blood pressure 65 mm[Hg] Brigitte Suppan PHOTO FINISH PHOTOGRAPHER Work Phone: [facility] 02-08-2025 19:45-0400 Heart rate 58 /min Brigitte Suppan PHOTO FINISH PHOTOGRAPHER Work Phone: [facility] 02-08-2025 19:45-0400 Respiratory rate 18 /min Brigitte Segal PHOTO FINISH PHOTOGRAPHER Work Phone: [facility] 02-08-2025 19:45-0400 Systolic blood pressure 128 mm[Hg] Brigitte Segal PHOTO FINISH PHOTOGRAPHER Work Phone: [facility] 10-16-2024 08:56-0400 Body height 177.[address] Neo Tejeda DO Work Phone: [facility] 10-16-2024 08:56-0400 Body mass index (BMI) [Ratio] 23.8 kg/m2 Dr. Neo Tejeda DO Work Phone: 1([phone] [place] [address] 10-16-2024 08:56-0400 Body temperature 97.3 [degF] Dr. Neo Tejeda DO Work Phone: [phone] [place] [address] 10-16-2024 08:56-0400 Body weight 75.[address] Neo Tejeda DO Work Phone: [phone] [place] [address] 10-16-2024 08:56-0400 Diastolic blood pressure 65 mm[Hg] Dr. Neo Tejeda DO Work Phone: 5([phone] [place] [address] 10-16-2024 08:56-0400 Heart rate 73 /min Dr. Neo Tejeda DO Work Phone: 2([phone] [place] [address] 10-16-2024 08:56-0400 Respiratory rate 20 /min Dr. Neo Tejeda DO Work Phone: 7([phone] [place] [address] 10-16-2024 08:56-0400 SaO2% (BldA) [Mass fraction] 90 % Dr. Neo Tejeda DO Work Phone: [phone] [place] [address] 10-16-2024 08:56-0400 Systolic blood pressure 121 mm[Hg] Dr. Neo Tejeda DO Work Phone: [facility] 09-19-2024 14:55-0500 Body mass index (BMI) [Ratio] 22.96 kg/m2 Brigitte Segal HEALTH SCIENCES PROGRAM COORDINATORStaceyFIELD MARKETING MANAGER Work Phone: [facility] 09-19-2024 14:55-0500 Body temperature 98.71 [degF] Brigitte Suppan HEALTH SCIENCES PROGRAM COORDINATOR.FIELD MARKETING MANAGER Work Phone: [facility] 09-19-2024 14:55-0500 Body weight 72.58 kg Brigitte Suppan HEALTH SCIENCES PROGRAM COORDINATOR.FIELD MARKETING MANAGER Work Phone: [facility] 09-19-2024 14:55-0500 Diastolic blood pressure 62 mm[Hg] Brigitte Suppan HEALTH SCIENCES PROGRAM COORDINATOR.FIELD MARKETING MANAGER Work Phone: [facility] 09-19-2024 14:55-0500 Heart rate 80 /min Brigitte Suppan HEALTH SCIENCES PROGRAM COORDINATOR.FIELD MARKETING MANAGER Work Phone: [facility] 09-19-2024 14:55-0500 SaO2% (BldA) [Mass fraction] 90 % Brigitte Suppan HEALTH SCIENCES PROGRAM COORDINATOR.FIELD MARKETING MANAGER Work Phone: [facility] Comment on above: 3 liters of oxygen 09-19-2024 14:55-0500 Systolic blood pressure 128 mm[Hg] Brigitte Suppan HEALTH SCIENCES PROGRAM COORDINATOR.FIELD MARKETING MANAGER Work Phone: [facility] 09-15-2024 15:00-0500 Body temperature 97.6 [degF] Dr. Neo Tejeda DO Work Phone: [facility] 09-15-2024 15:00-0500 Diastolic blood pressure 71 mm[Hg] Dr. Neo Tejeda DO Work Phone: [facility] 09-15-2024 15:00-0500 Heart rate 82 /min Dr. Neo Tejeda DO Work Phone: [facility] 09-15-2024 15:00-0500 Respiratory rate 16 /min Dr. Neo Tejeda DO Work Phone: [facility] 09-15-2024 15:00-0500 SaO2% (BldA) [Mass fraction] 93 % Dr. Neo Tejeda DO Work Phone: [facility] 09-15-2024 15:00-0500 Systolic blood pressure 140 mm[Hg] Dr. Neo Tejeda DO Work Phone: [facility] 09-15-2024 10:09-0500 Body weight 73.[address] Neo Tejeda DO Work Phone: [facility] 09-15-2024 09:00-0500 Inhaled oxygen flow rate 3 L/min Dr. Neo Tejeda DO Work Phone: [facility] 09-15-2024 03:59-0500 Body mass index (BMI) [Ratio] 23.1 kg/m2 Dr. Neo Tejeda DO Work Phone: [facility] 09-12-2024 09:19-0500 Inhaled oxygen concentration 34 % Dr. Neo Tejeda DO Work Phone: [facility] 03-27-2024 07:47-0400 Body mass index (BMI) [Ratio] 21.81 kg/m2 Brigitte Suppan HEALTH SCIENCES PROGRAM COORDINATOR.FIELD MARKETING MANAGER Work Phone: [facility] 03-27-2024 07:47-0400 Body weight 68.95 kg Brigitte Suppan HEALTH SCIENCES PROGRAM COORDINATOR.FIELD MARKETING MANAGER Work Phone: [facility] 03-27-2024 07:47-0400 Diastolic blood pressure 67 mm[Hg] Brigitte Suppan HEALTH SCIENCES PROGRAM COORDINATOR.FIELD MARKETING MANAGER Work Phone: [facility] 03-27-2024 07:47-0400 Heart rate 63 /min Brigitte Suppan HEALTH SCIENCES PROGRAM COORDINATOR.FIELD MARKETING MANAGER Work Phone: [facility] 03-27-2024 07:47-0400 Respiratory rate 16 /min Brigitte Suppan HEALTH SCIENCES PROGRAM COORDINATOR.FIELD MARKETING MANAGER Work Phone: [facility] 03-27-2024 07:47-0400 SaO2% (BldA) [Mass fraction] 94 % Brigitte Suppan HEALTH SCIENCES PROGRAM COORDINATOR.FIELD MARKETING MANAGER Work Phone: [facility] 03-27-2024 07:47-0400 Systolic blood pressure 126 mm[Hg] Brigitte Suppan HEALTH SCIENCES PROGRAM COORDINATOR.FIELD MARKETING MANAGER Work Phone: [facility] 02-25-2024 08:22-0400 Body mass index (BMI) [Ratio] 21.81 kg/m2 Brigitte Suppan HEALTH SCIENCES PROGRAM COORDINATOR.FIELD MARKETING MANAGER Work Phone: [facility] 02-25-2024 08:22-0400 Body weight 68.95 kg Brigitte Suppan HEALTH SCIENCES PROGRAM COORDINATOR.FIELD MARKETING MANAGER Work Phone: [facility] 02-25-2024 08:22-0400 Diastolic blood pressure 70 mm[Hg] Brigitte Suppan HEALTH SCIENCES PROGRAM COORDINATOR.FIELD MARKETING MANAGER Work Phone: [facility] 02-25-2024 08:22-0400 Heart rate 60 /min Brigitte Suppan HEALTH SCIENCES PROGRAM COORDINATOR.FIELD MARKETING MANAGER Work Phone: [facility] 02-25-2024 08:22-0400 Respiratory rate 16 /min Brigitte Suppan HEALTH SCIENCES PROGRAM COORDINATOR.FIELD MARKETING MANAGER Work Phone: [facility] 02-25-2024 08:22-0400 SaO2% (BldA) [Mass fraction] 94 % Brigitte Suppan HEALTH SCIENCES PROGRAM COORDINATOR.FIELD MARKETING MANAGER Work Phone: [facility] 02-25-2024 08:22-0400 Systolic blood pressure 148 mm[Hg] Brigitte Suppan HEALTH SCIENCES PROGRAM COORDINATOR.FIELD MARKETING MANAGER Work Phone: [facility] 12-25-2023 08:53-0400 Body mass index (BMI) [Ratio] 22.81 kg/m2 NA Durbin PA-C Work Phone: [facility] 12-25-2023 08:53-0400 Body weight 72.12 kg NA Durbin PA-C Work Phone: [facility] 12-25-2023 08:53-0400 Diastolic blood pressure 68 mm[Hg] NA Durbin PA-C Work Phone: [facility] 12-25-2023 08:53-0400 Heart rate 61 /min NA Durbin PA-C Work Phone: [facility] 12-25-2023 08:53-0400 Respiratory rate 16 /min NA Durbin PA-C Work Phone: [facility] 12-25-2023 08:53-0400 SaO2% (BldA) [Mass fraction] 95 % NA Durbin PA-C Work Phone: [facility] 12-25-2023 08:53-0400 Systolic blood pressure 120 mm[Hg] NA Durbin PA-C Work Phone: [facility] 09-25-2023 09:07-0500 Body weight 72.12 kg NA Durbin PA-C Work Phone: [facility] 09-25-2023 09:07-0500 Diastolic blood pressure 62 mm[Hg] NA Durbin PA-C Work Phone: [facility] 09-25-2023 09:07-0500 Heart rate 66 /min NA Durbin PA-C Work Phone: [facility] 09-25-2023 09:07-0500 Respiratory rate 16 /min NA Durbin PA-C Work Phone: [facility] 09-25-2023 09:07-0500 SaO2% (BldA) [Mass fraction] 92 % NA Durbin PA-C Work Phone: [facility] 09-25-2023 09:07-0500 Systolic blood pressure 110 mm[Hg] NA Durbin PA-C Work Phone: [facility] 08-04-2023 12:46-0500 SaO2% (BldA) [Mass fraction] 98 % PA NA Durbin PA Work Phone: [facility] 08-04-2023 10:58-0500 Heart rate 75 /min PA NA Durbin PA Work Phone: [facility] 08-04-2023 10:58-0500 Respiratory rate 16 /min PA NA Durbin PA Work Phone: [facility] 08-04-2023 09:00-0500 Body temperature 97.2 [degF] PA NA Durbin PA Work Phone: [facility] 08-04-2023 09:00-0500 Diastolic blood pressure 62 mm[Hg] PA NA Durbin PA Work Phone: [facility] 08-04-2023 09:00-0500 Systolic blood pressure 138 mm[Hg] PA NA Durbin PA Work Phone: [facility] 08-04-2023 07:20-0500 Inhaled oxygen flow rate 4 L/min PA NA Durbin PA Work Phone: [facility] 08-04-2023 03:07-0500 Body mass index (BMI) [Ratio] 22.6 kg/m2 PA NA Durbin PA Work Phone: [facility] 08-04-2023 03:07-0500 Body weight 71.4 kg PA NA Durbin PA Work Phone: [facility] 08-02-2023 13:52-0500 Body height 177.8 cm PA NA Durbin PA Work Phone: [facility] 08-01-2023 20:53-0500 Inhaled oxygen concentration 92 % PA NA Durbin PA Work Phone: [facility] 08-01-2023 16:17-0500 Diastolic blood pressure 76 mm[Hg] [facility] 08-01-2023 16:17-0500 Heart rate 77 /min [facility] 08-01-2023 16:17-0500 SaO2% (BldA) [Mass fraction] 91 % [facility] 08-01-2023 16:17-0500 Systolic blood pressure 150 mm[Hg] [facility] 08-01-2023 16:16-0500 Inhaled oxygen flow rate 5 L/min [facility] 08-01-2023 16:16-0500 Respiratory rate 24 /min [facility] 08-01-2023 12:44-0500 Body height 177.8 cm [facility] 08-01-2023 12:44-0500 Body mass index (BMI) [Ratio] 23.3 kg/m2 [facility] 08-01-2023 12:44-0500 Body temperature 97.9 [degF] [facility] 08-01-2023 12:44-0500 Body weight 73.66 kg [facility] 06-28-2023 08:57-0500 Body weight 70.94 kg NA Durbin PA-C Work Phone: [facility] 06-28-2023 08:57-0500 Diastolic blood pressure 70 mm[Hg] NA Durbin PA-C Work Phone: [facility] 06-28-2023 08:57-0500 Heart rate 60 /min NA Durbin PA-C Work Phone: [facility] 06-28-2023 08:57-0500 Respiratory rate 16 /min NA Durbin PA-C Work Phone: [facility] 06-28-2023 08:57-0500 SaO2% (BldA) [Mass fraction] 97 % NA Durbin PA-C Work Phone: [facility] 06-28-2023 08:57-0500 Systolic blood pressure 122 mm[Hg] NA Durbin PA-C Work Phone: [facility] 05-25-2023 11:07-0400 Body temperature 98.1 [degF] Jair Marvin MD Work Phone: [facility] 05-25-2023 11:07-0400 Body weight 71.67 kg Jair Marvin MD Work Phone: [facility] 05-25-2023 11:07-0400 Diastolic blood pressure 69 mm[Hg] Jair Marvin MD Work Phone: [facility] 05-25-2023 11:07-0400 Heart rate 70 /min Jair Marvin MD Work Phone: [facility] 05-25-2023 11:07-0400 Respiratory rate 18 /min Jair Marvin MD Work Phone: [facility] 05-25-2023 11:07-0400 SaO2% (BldA) [Mass fraction] 93 % Jair Marvin MD Work Phone: [facility] 05-25-2023 11:07-0400 Systolic blood pressure 132 mm[Hg] Jair Marvin MD Work Phone: [facility] 02-08-2023 09:28-0400 Body weight 71.67 kg NA Durbin PA-C Work Phone: [facility] 02-08-2023 09:28-0400 Diastolic blood pressure 80 mm[Hg] NA Durbin PA-C Work Phone: [facility] 02-08-2023 09:28-0400 Heart rate 56 /min NA Durbin PA-C Work Phone: [facility] 02-08-2023 09:28-0400 Respiratory rate 16 /min NA Durbin PA-C Work Phone: [facility] 02-08-2023 09:28-0400 SaO2% (BldA) [Mass fraction] 96 % NA Durbin PA-C Work Phone: [facility] 02-08-2023 09:28-0400 Systolic blood pressure 148 mm[Hg] NA Durbin PA-C Work Phone: [facility] 01-31-2023 10:43-0400 Body temperature 97.9 [degF] Rebekah Athy PA-C Work Phone: [facility] 01-31-2023 10:43-0400 Body weight 73.57 kg Rebekah Athy PA-C Work Phone: [facility] 01-31-2023 10:43-0400 Diastolic blood pressure 86 mm[Hg] Rebekah Athy PA-C Work Phone: [facility] 01-31-2023 10:43-0400 Heart rate 58 /min Rebekah Athy PA-C Work Phone: [facility] 01-31-2023 10:43-0400 Respiratory rate 18 /min Rebekha Athy PA-C Work Phone: [facility] 01-31-2023 10:43-0400 SaO2% (BldA) [Mass fraction] 97 % Rebekah Athy PA-C Work Phone: [facility] 01-31-2023 10:43-0400 Systolic blood pressure 164 mm[Hg] Rebekah Athy PA-C Work Phone: [facility] 11-27-2022 14:57-0400 Body weight 73.03 kg NA Durbin PA-C Work Phone: [facility] 11-27-2022 14:57-0400 Diastolic blood pressure 68 mm[Hg] NA Durbin PA-C Work Phone: [facility] 11-27-2022 14:57-0400 Heart rate 57 /min NA Durbin PA-C Work Phone: [facility] 11-27-2022 14:57-0400 SaO2% (BldA) [Mass fraction] 96 % NA Durbin PA-C Work Phone: [facility] 11-27-2022 14:57-0400 Systolic blood pressure 130 mm[Hg] NA Durbin PA-C Work Phone: [facility] 06-21-2022 23:01-0500 Heart rate 85 /min PA NA Durbin PA Work Phone: [facility] Work Phone: 06-21-2022 23:01-0500 Respiratory rate 15 /min PA NA Durbin PA Work Phone: [facility] Work Phone: 06-21-2022 23:01-0500 SaO2% (BldA) [Mass fraction] 98 % PA NA Durbin PA Work Phone: [facility] Work Phone: 06-21-2022 21:53-0500 Body height 177.8 cm PA NA Durbin PA Work Phone: [facility] Work Phone: 06-21-2022 21:53-0500 Body mass index (BMI) [Ratio] 22.9 kg/m2 PA NA Durbin PA Work Phone: [facility] Work Phone: 06-21-2022 21:53-0500 Body temperature 97.8 [degF] PA NA Durbin PA Work Phone: [facility] Work Phone: 06-21-2022 21:53-0500 Body weight 72.57 kg PA NA Durbin PA Work Phone: [facility] Work Phone: 06-21-2022 21:53-0500 Diastolic blood pressure 80 mm[Hg] PA NA Durbin PA Work Phone: [facility] Work Phone: 06-21-2022 21:53-0500 Systolic blood pressure 166 mm[Hg] PA NA Durbin PA Work Phone: [facility] Work Phone: 02-08-2022 12:26-0400 Body height 177.[address] Brian Mackenzie III Work Phone: [facility] Work Phone: 02-08-2022 12:26-0400 Body mass index (BMI) [Ratio] 23.5 kg/m2 Dr. Brian Mackenzie III Work Phone: [facility] Work Phone: 02-08-2022 12:26-0400 Body weight 74.[address] Brian Mackenzie III Work Phone: [facility] Work Phone: 02-08-2022 12:26-0400 Diastolic blood pressure 69 mm[Hg] Dr. Brian Mackenzie III Work Phone: [facility] Work Phone: 02-08-2022 12:26-0400 Heart rate 56 /min Dr. Brian Mackenzie III Work Phone: [facility] Work Phone: 02-08-2022 12:26-0400 Respiratory rate 16 /min Dr. Brian Mackenzie III Work Phone: [facility] Work Phone: 02-08-2022 12:26-0400 SaO2% (BldA) [Mass fraction] 96 % Dr. Brian Mackenzie III Work Phone: [facility] Work Phone: 02-08-2022 12:26-0400 Systolic blood pressure 125 mm[Hg] Dr. Brian Mackenzie III Work Phone: [facility] Work Phone: 05-31-2017 08:40-0400 BMI (Body Mass Index) 23.11 kg/m2 Quan Mackenzie MD [facility] al Patient Feed Work Phone: 05-31-2017 08:40-0400 Body Temperature 97.9 [degF] Quan Mackenzie MD [facility] Patient Feed Work Phone: 05-31-2017 08:40-0400 BP Diastolic 70 mm[Hg] Quan Mackenzie MD [facility] Work Phone: 05-31-2017 08:40-0400 BP Systolic 150 mm[Hg] Quan Mackenzie MD [facility] Work Phone: 05-31-2017 08:40-0400 Height 182.88 cm Quan Mackenzie MD [facility] Work Phone: 05-31-2017 08:40-0400 Pulse (Heart Rate) 74 /min Quan Mackenzie MD [facility] Work Phone: 05-31-2017 08:40-0400 Respiratory Rate 20 /min Quan Mackenzie MD [facility] Work Phone: 05-31-2017 08:40-0400 Weight 77.29 kg Quan Mackenzie MD [facility] Work Phone: 05-08-2017 14:55-0400 BMI (Body Mass Index) 23.08 kg/m2 Quan Mackenzie MD [facility] Surg al Patient Feed Work Phone: 05-08-2017 14:55-0400 Body Temperature 97.5 [degF] Quan Mackenzie MD [facility] Patient Feed Work Phone: 05-08-2017 14:55-0400 BP Diastolic 76 mm[Hg] Quan Mackenzie MD [facility] Patient Feed Work Phone: 05-08-2017 14:55-0400 BP Systolic 175 mm[Hg] Quan Mackenzie MD [facility] Patient [facility] Work Phone: 05-08-2017 14:55-0400 Height 182.88 cm Quan Mackenzie MD [facility] Patient Feed Work Phone: 05-08-2017 14:55-0400 Pulse (Heart Rate) 67 /min Quan Mackenzie MD [facility] Patient Feed Work Phone: 05-08-2017 14:55-0400 Respiratory Rate 20 /min Quan Mackenzie MD [facility] Patient Feed Work Phone: 05-08-2017 14:55-0400 Weight 77.2 kg Quan Mackenzie MD [facility] Patient Feed Work Phone: Encounters Encounter Date Encounter Type Care Provider Facility Start: 02-08-2025 Evaluation and manag ement of inpatient Dr. Janice Sanford MD -[facility] Work Phone: Start: 02-08-2025 Non-patient / Non-visit Dr. Gini Sanford MD -[facility] Work Phone: Start: 10-31-2024 End: 10-31-2024 Telephone encounter Brigitte Segal HEALTH SCIENCES PROGRAM COORDINATOR.FIELD MARKETING MANAGER Work Phone: [facility] Comment on above: [id number]; Initial Consu lt Start: 10-31-2024 ambulatory Brigitte Jacky Facil ity:[facility] Start: 10-27-2024 End: 10-27-2024 Telephone encounter Brigitte Segal HEALTH SCIENCES PROGRAM COORDINATOR.FIELD MARKETING MANAGER Work Phone: [facility] [place] Comment on above: Orders; patient POC Start: 10-16-2024 End: 10-16-2024 Patient encounter procedure Kalyn DALY -[facility] Work Phone: Start: 10-16-2024 End: 10-16-2024 ambulatory Brigitte Segal Facility:[facility] Start: 10-15-2024 End: 10-30-2024 Telephone encounter Brigitte Segal APRN.FIELD MARKETING MANAGER Work Phone: [facility] Comment on above: Patient Update Start: 10-03-2024 End: 10-03-2024 Telephone encounter Brigitte Segal APRN.FIELD MARKETING MANAGER Work Phone: [facility] Comment on above: Oxygen; FYI-No Actio n Needed (/) Start: 09-19-2024 End: 09-19-2024 ambulatory BRIGITTE SEGAL Facility:[facility] Start: 09-19-2024 End: 09-19-2024 Office outpatient visit 25 minutes Brigitte Segal APRN.FIELD MARKETING MANAGER Work Phone: [facility] Comment on above: Chronic insomnia (Pr imary Dx); Benign prostatic hyperplasia with nocturia; Screening for depression; Hyperlipidemia LDL goal <100; Essential hypertension, benign; Parkinson's disease without dyskinesia, unspecified whether manifestations fluctuate (HCC); 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; Acute respiratory failure with hypoxia (HCC) Start: 09-19-2024 End: 09-19-2024 Telephone encounter Brigitte Segal APRN.FIELD MARKETING MANAGER Work Phone: [facility] Comment on above: Home Health PT Plan of Care Start: 09-17-2024 End: 09-22-2024 Telephone encounter Brigitte Segal APRN.FIELD MARKETING MANAGER Work Phone: [facility] Comment on above: Prison Plan of Care Start: 09-15-2024 End: 09-15-2024 Telephone encounter Brigitte Segal APRN.FIELD MARKETING MANAGER [facility] Comment on above: Home Health Orders Start: 09-15-2024 Non-patient / Non-visit Dr. John Soliz MD -[facility] Work Phone: Start: 09-14-2024 Non-patient / Non-visit Dr. Lester Eduardo [facility] Work Phone: Start: 09-13-2024 Non-patient / Non-visit Dr. Lester Eduardo [facility] Work Phone: Start: 09-12-2024 Non-patient / Non-visit Dr. Lester Eduardo [facility] Work Phone: Start: 09-11-2024 Non-patient / Non-visit Dr. Lester Eduardo [facility] Work Phone: Start: 09-10-2024 Non-patient / Non-visit Dr. Lester Eduardo [facility] Work Phone: Start: 09-09-2024 End: 09-09-2024 Telephone encounter Brigitte Segal HEALTH SCIENCES PROGRAM COORDINATOR.FIELD MARKETING MANAGER Work Phone: [facility] [place] Start: 09-09-2024 Non-patient / Non-visit Dr. Lester Eduardo [facility] Work Phone: Start: 09-08-2024 ambulatory Brigitte Segal Facil ity:[facility] Start: 09-08-2024 Non-patient / Non-visit [facility] Ped[facility] Start: 09-08-2024 Non-patient / Non-visit Dr. Lester Eduardo [facility] Work Phone: Start: 09-07-2024 Non-patient / Non-visit Dr. Jerrell badillo [place] -[facility] Work Phone: Start: 09-07-2024 ambulatory Lester Perdomo Facility:[facility] Start: 09-07-2024 End: 09-15-2024 Evaluation and management of inpatient Jerrell Faith Facility:[facility] Start: 03-27-2024 End: 03-27-2024 ambulatory BRIGITTE SEGAL Facility:[facility] Start: 03-27-2024 End: 03-27-2024 Office outpatient visit 15 minutes Brigitte A Suppan HEALTH SCIENCES PROGRAM COORDINATOR.FIELD MARKETING MANAGER Work Phone: [facility] Comment on above: S/P primary angiopla sty with coronary stent; PAD (peripheral artery disease) (HCC); Hyperlipidemia LDL goal <100; Anxiety state; Benign prostatic hyperplasia with nocturia; Essential hypertension, benign; Left sided abdominal pain Start: 03-13-2024 Refill Radha KING-C Work Phone: [facility] Comment on above: Refill Request Start: 02-28-2024 ambulatory Radha KING Fac ility:[facility] Start: 02-26-2024 Telephone encounter Brigitte A Suppan HEALTH SCIENCES PROGRAM COORDINATOR.FIELD MARKETING MANAGER Work Phone: [facility] Start: 02-25-2024 End: 02-25-2024 ambulatory BRIGITTE A SUPPAN Facility:[facility] Start: 02-25-2024 End: 02-25-2024 Office outpatient visit 15 minutes Brigitte A Suppan HEALTH SCIENCES PROGRAM COORDINATOR.FIELD MARKETING MANAGER Work Phone: [facility] Comment on above: Left sided abdominal pain (Primary Dx); Essential hypertension, benign Start: 02-19-2024 End: 02-19-2024 ambulatory Radha KING Facility:[facility] Start: 02-09-2024 End: 02-09-2024 Emergency department patient visit Radha KING Facility:[facility] Start: 12-31-2023 Refill Radha KENNEDYC Work Phone: [facility] Comment on above: Refill Request Start: 12-28-2023 Telephone encounter Walter Gomez MD Work Phone: [facility] Comment on above: Results Start: 12-27-2023 End: 12-27-2023 ambulatory CASPER DURBIN Facility:[facility] Start: 12-25-2023 End: 12-25-2023 ambulatory CASPER DURBIN Facility:[facility] Start: 12-25-2023 End: 12-25-2023 Patient encounter procedure Radha Durbin PA-C Work Phone: [facility] Comment on above: Coronary artery dise ase involving 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 (Primary Dx); S/P [...] disorder, mild, abuse Start: 12-13-2023 Refill Radha KINGLocalBonus Work Phone: [facility] Comment on above: Refill Request Start: 09-25-2023 End: 09-25-2023 Patient encounter procedure Radha Durbin PA-C Work Phone: [facility] Comment on above: Coronary artery dise ase involving 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; S/P primary angioplasty [...] Non-patient / Non-visit CHRISTINE KING Work Phone: [facility] Work Phone: Start: 08-03-2023 Non-patient / Non-visit CHRISTINE KING Work Phone: [facility] Work Phone: Start: 08-02-2023 Non-patient / Non-visit CHRISTINE KING Work Phone: [facility] Work Phone: Start: 08-01-2023 End: 08-04-2023 Evaluation and management of inpatient CHRISTINE NANDA Ramakrishna PA Work Phone: [facility] Work Phone: Start: 08-01-2023 Evaluation and manag ement of inpatient [facility] Work Phone: Start: 07-10-2023 Refill Radha Salgado on PA-C Work Phone: [facility] Comment on above: Refill Request Start: 07-02-2023 Telephone encounter Radha Durbin PA-C Work Phone: [facility] Start: 06-28-2023 End: 06-28-2023 Patient encounter procedure Radha Durbin PA-C Work Phone: [facility] Comment on above: Coronary artery dise ase involving 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 (Primary Dx); S/P primary angioplasty with coronary stent; Angina pectoris ([facility]); Atherosclerosis of aorta ([facility]); Essential hypertension, benign; Hyperlipidemia LDL goal <100; PAD (peripheral artery disease) ([facility]); Parkinson's disease without dyskinesia, with fluctuating manifestations; Hyperbilirubinemia; Gastroesophageal reflux disease, unspecified whether esophagitis present; Benign prostatic hyperplasia with nocturia; Anxiety state; Diarrhea, unspecified type Start: 06-18-2023 Refill Radha Salgado on PA-C Work Phone: [facility] Comment on above: Refill Request Start: 05-25-2023 End: 05-25-2023 Patient encounter procedure Jair Marvin MD Work Phone: [facility] Comment on above: Abrasion of anterior right lower leg, initial encounter (Primary Dx) Start: 05-14-2023 Telephone encounter Radha Salgadoon PA-C Work Phone: [facility] Comment on above: Results Start: 05-11-2023 Telephone encounter Radha Durbin PA-C Work Phone: [facility] Comment on above: Results Start: 05-11-2023 End: 05-11-2023 Subsequent hospital visit by physician Nasrin [facility] W[facility] (I-Stat) Work Phone: [facility] Comment on above: Atherosclerosis of a ken (HCC) [I70.0] Start: 02-08-2023 End: 02-08-2023 Patient encounter procedure Radha Justin Durbin PA-C Work Phone: [facility] Comment on above: Piriformis syndrome, left (Primary Dx); Somatic dysfunction of left sacroiliac joint Start: 01-31-2023 End: 01-31-2023 Subsequent hospital visit by physician Xr [facility] [place] Work Phone: Radiology Comment on above: Back pain of lumbar region with sciatica [M54.40] Start: 01-31-2023 End: 01-31-2023 Patient encounter procedure Rebekah KENNEDYC Work Phone: [facility] Comment on above: Back pain of lumbar region with sciatica (Primary Dx) Start: 01-12-2023 Refill Walter Gomez MD Work Phone: [facility] Comment on above: Refill Request Start: 11-30-2022 Telephone encounter Radha Justin Durbin PA-C Work Phone: [facility] Comment on above: Results Start: 11-27-2022 End: 11-27-2022 Patient encounter procedure Radha Justin KENNEDYC Work Phone: [facility] Comment on above: S/P primary angiopla sty with coronary stent (Primary Dx); PAD (peripheral artery disease) ([facility]); Hyperlipidemia LDL goal <100; Essential hypertension, benign; Angina pectoris ([facility]); Parkinson's disease ([facility]); Gastroesophageal reflux disease, unspecified whether esophagitis present; Iron deficiency anemia due to chronic blood loss; Benign prostatic hyperplasia with nocturia; Restless legs syndrome; Anxiety state; Elevated PSA; Chronic insomnia Start: 08-07-2022 Refill Radha benjamin PA-C Work Phone: [facility] Comment on above: Refill Request Start: 07-07-2022 Refill Radha benjamin PA-C Work Phone: [facility] Comment on above: Refill Request Start: 06-21-2022 End: 06-21-2022 Emergency department patient visit CHRISTINE KING Work Phone: [facility]-Emergency Department Start: 04-10-2022 Refill Radha Salgado on PA-C Work Phone: [facility] Comment on above: Refill Request Start: 02-27-2022 Non-patient / Non-visit Dr. Fr georgina Mackenzie III Work Phone: [facility] Start: 02-27-2022 End: 02-27-[address] Brian Mackenzie III Work Phone: [facility] Start: 02-08-2022 End: 02-08-[address] Brian Mackenzie III Work Phone: [facility] Start: 01-09-2022 Refill Radha Salgado on PA-C Work Phone: [facility] Comment on above: Refill Request Procedures Date Procedure Procedure Detail Performing Clinician Start: 02-08-2025 Estimated creatinine clearance Brigitte Segal PHOTO FINISH PHOTOGRAPHER Work Phone: Start: 02-08-2025 Serum inorganic phos phate measurement Brigitte Segal PHOTO FINISH PHOTOGRAPHER Work Phone: Start: 09-19-2024 Adult depression scr eening assessment Brigitte Segal HEALTH SCIENCES PROGRAM COORDINATOR.FIELD MARKETING MANAGER Work Phone: Start: 09-14-2024 Estimated creatinine [...] angiography of ch est with contrast Dr. eNo Tejeda DO Work Phone: Start: 09-08-2024 Assay [...] primary angioplasty with coronary stent Brigitte Segal HEALTH SCIENCES PROGRAM COORDINATOR.FIELD MARKETING MANAGER Work Phone: Plan of Treatment Date Care Activity Detail Author Start: 02-24-2027 Diabetes Screening Diabetes Screening [facility] Start: 12-26-2026 Diabetes Screening Diabetes Screening [facility] Start: 06-28-2026 Diabetes Screening Diabetes Screening [facility] Start: 05-10-2026 Urine microalbumin profile [facility] Start: 11-29-2025 DIABETES SCREEN DIABETES SCREEN [facility] Start: 11-29-2025 Diabetes Screening Diabetes Screening [facility] Start: 09-19-2025 Depression Screening Depression Screening [facility] Start: 03-19-2025 End: 03-19-2025 Patient encounter procedure 03/19/2025 10:40 AM EDT Office Visit [facility] [place] [address] [place] [address] Brigitte Segal APRN.FIELD MARKETING MANAGER [address] [place] [address] 6 month exam [facility] [place] Comment on above: 6 month exam Start: 02-09-2025 CT of thorax with contrast Chest WITH Contrast [facility] Start: 02-09-2025 Thyroid stimulating hormone measurement [facility] Start: 02-08-2025 End: 02-08-2025 [facility] Start: 02-08-2025 Application of intermittent pneumatic compression device [facility] Start: 02-08-2025 Following clinical pathway protocol [facility] Start: 02-08-2025 Aspiration precautions [facility] Start: 02-08-2025 Assessment of risk of venous thromboembolism [facility] Start: 02-08-2025 Cardiac monitoring [facility] Start: 02-08-2025 Catheterization of vein [facility] Start: 02-08-2025 Consultation [facility] Start: 02-08-2025 Continuous pulse oximetry [facility] Start: 02-08-2025 Elevation of head of bed [facility] Start: 02-08-2025 Exercises [facility] Start: 02-08-2025 Incentive spirometry [facility] Start: 02-08-2025 Inhalation therapy procedure [facility] Start: 02-08-2025 Insertion of catheter into peripheral vein [facility] Start: 02-08-2025 Introduction of urinary catheter [facility] Start: 02-08-2025 Measuring intake and output [facility] Start: 02-08-2025 Notification of physician [facility] Start: 02-08-2025 Oxygen therapy [facility] Start: 02-08-2025 Patient referral to dietitian [facility] Start: 02-08-2025 Providing care according to standard [facility] Start: 02-08-2025 Provision of activity privileges [facility] Start: 02-08-2025 Referral to occupational therapist [facility] Start: 02-08-2025 Referral to service [facility] Start: 02-08-2025 Speech therapy assessment [facility] Start: 02-08-2025 Telemedicine consultation with patient [facility] Start: 02-08-2025 Tobacco use cessation education [facility] Start: 02-08-2025 End: 02-08-2025 [facility] Start: 02-08-2025 MRI of brain with contrast Brain W/WO Contrast [facility] Start: 02-08-2025 Verification routine [facility] Start: 02-08-2025 Admission procedure [facility] Start: 01-26-2025 Influenza vaccination [facility] Comment on above: Postponed from 03/30/2024 (Declined at t his time) Start: 12-26-2024 Hepatitis B surface antibody level LDL Cholesterol [facility] Start: 12-24-2024 Covid-19 Vaccine ( season) Covid-19 Vaccine () [facility] Comment on above: Postponed from 08/31/2023 (Declined at t his time) Start: 12-24-2024 DIABETES SCREEN DIABETES SCREEN [facility] Start: 10-20-2024 End: 10-20-2024 Patient encounter procedure 10/20/2024 10:00 AM EDT Office Visit [facility] [address] [place] [address] Brigitte Segal HEALTH SCIENCES PROGRAM COORDINATOR.FIELD MARKETING MANAGER [address] [place], [place] [address] follow up [facility] Comment on above: follow up Start: 09-19-2024 End: 09-19-2024 Patient encounter procedure 09/19/2024 2:40 PM EST Office Visit Family [facility] [address] [place], [place] [id number] Brigitte Segal, HEALTH SCIENCES PROGRAM COORDINATOR.FIELD MARKETING MANAGER [address] [place], [place] [id number] follow up [facility] for hypoxia [facility] [place] Comment on above: follow up [facility] for hypoxia Start: 09-15-2024 Referral to service [facility] Start: 09-15-2024 Patient discharge [facility] Start: 09-08-2024 Referral to occupational therapist [facility] Start: 09-08-2024 Referral to service [facility] Start: 09-08-2024 Physiotherapy of chest [facility] Start: 09-07-2024 Following clinical pathway protocol [facility] Start: 09-07-2024 Ambulation without limitation [facility] Start: 09-07-2024 Assessment of risk of venous thromboembolism [facility] Start: 09-07-2024 Catheterization of vein [facility] Start: 09-07-2024 Inhalation therapy procedure [facility] Start: 09-07-2024 Insertion of catheter into peripheral vein [facility] Start: 09-07-2024 Measuring intake and output [facility] Start: 09-07-2024 Providing care according to standard [facility] Start: 09-07-2024 Provision of activity privileges [facility] Start: 09-07-2024 [facility] Start: 09-07-2024 Admission procedure [facility] Start: 09-07-2024 Oxygen therapy [facility] Start: 09-07-2024 [facility] Start: 09-07-2024 Continuous positive airway pressure ventilation treatment [facility] Start: 09-07-2024 Patient referral to dietitian [facility] Start: 07-30-2024 Advance Directive Discussion Advance Directive Discussion [facility] Start: 07-01-2024 End: 07-01-2024 Patient encounter procedure 07/01/2024 9:00 AM EST Office Visit Family [facility] [address] [place] [address] Radha Durbin PA-C [address] [place] [address] 6 month follow up [facility] Comment on above: 6 month follow up Start: 03-30-2024 Covid-19 Vaccine () Covid-19 Vaccine () [facility] Start: 03-30-2024 Covid-19 Vaccine ( season) Covid-19 Vaccine () [facility] Start: 03-30-2024 Influenza vaccination Influenza Vaccine (#1) [facility] morgan Start: 03-27-2024 End: 03-27-2024 Patient encounter procedure 03/27/2024 8:00 AM EDT Office Visit [facility] [address] [place] [address] Brigitte Segal APRN.FIELD MARKETING MANAGER [address] [place] [address] 1 month abdominal pain f/u [facility] [place] Comment on above: 1 month abdominal pain f/u Start: 02-25-2024 End: 05-26-2024 Amylase [Enzymatic activity/volume] in Serum or Plasma [facility] Comment on above: Expected: 02/25/2024, Expires: 4 Start: 02-25-2024 End: 05-26-2024 CBC W Auto Differential panel - Blood [facility] Comment on above: Expected: 02/25/2024, Expires: Start: 02-25-2024 End: 05-26-2024 Comprehensive metabolic 2000 panel - Serum or Plasma [facility] Comment on above: Expected: 02/25/2024, Expires: 4 Start: 02-25-2024 End: 05-26-2024 Helicobacter pylori IgG Ab [Presence] in Serum or Plasma by Immunoassay [facility] Work Phone: Comment on above: Expected: 02/25/2024, Expires: 4 Start: 02-25-2024 End: 05-26-2024 Lipase [Enzymatic activity/volume] in Serum or Plasma [facility] Comment on above: Expected: 02/25/2024, Expires: 4 Start: 02-09-2024 COVID-19 VACCINE (4 - Pfizer series) COVID-19 VACCINE (4 - Pfizer series) [facility] Comment on above: Postponed from 07/13/2021 (Declined at t his time) Start: 02-09-2024 SHINGRIX VACCINE (1 of 2) SHINGRIX VACCINE (1 of 2) [facility] Comment on above: Postponed from 11/04/1987 (Declined at t his time) Start: 12-25-2023 End: 12-25-2023 Patient encounter procedure 12/25/2023 9:00 AM EDT Office Visit [facility] [place] [address] [place], [place] [address] Radha Durbin PA-C [address] [place] [address] 3 month follow up [facility] [place] Comment on above: 3 month follow up Start: 12-24-2023 End: 03-24-2024 CBC W Auto Differential panel - Blood COMPLETE BLOOD COUNT AND DIFFERENTIAL Lab Routine 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 Essential hypertension, benign Hyperlipidemia LDL goal <100 Gastroesophageal reflux disease, unspecified whether esophagitis present Anxiety state Expected: 12/24/2023, Expires: 03/24/2024 [facility] Work Phone: Comment on above: Expected: 12/24/2023, Expires: Start: 12-24-2023 End: 03-24-2024 Comprehensive metabolic 2000 panel - Serum or Plasma COMPREHENSIVE METABOLIC PANEL Lab Routine 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 Essential hypertension, benign Hyperbilirubinemia Gastroesophageal reflux disease, unspecified whether esophagitis present Anxiety state Expected: 12/24/2023, Expires: 03/24/2024 [facility] Comment on above: Expected: 12/24/2023, Expires: Start: 12-24-2023 End: 03-24-2024 Lipid 1996 panel - Serum or Plasma LIPID PANEL BASIC Lab Routine 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 Atherosclerosis of aorta (HCC) Hyperlipidemia LDL goal <100 Expected: 12/24/2023, Expires: 03/24/2024 [facility] Comment on above: Expected: 12/24/2023, Expires: Start: 12-24-2023 End: 08-26-2024 Magnesium [Mass/volume] in Serum or Plasma MAGNESIUM Lab Routine 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 Current use of proton pump inhibitor Expected: 12/24/2023, Expires: 03/24/2024 [facility] Comment on above: Expected: 12/24/2023, Expires: Start: 11-30-2023 Hepatitis B surface antibody level LDL CHOLESTEROL [facility] Start: 08-31-2023 Covid-19 Vaccine () Covid-19 Vaccine () [facility] Start: 08-04-2023 Patient discharge [facility] Start: 08-04-2023 [facility] Start: 08-03-2023 Physiotherapy of chest [facility] Start: 08-01-2023 Elevation of head of bed [facility] Start: 08-01-2023 Patient education [facility] Start: 08-01-2023 [facility] Start: 08-01-2023 Following clinical pathway protocol [facility] Start: 08-01-2023 Oxygen therapy [facility] Start: 08-01-2023 Admission procedure [facility] Start: 08-01-2023 Provision of activity privileges [facility] Start: 08-01-2023 Assessment of risk of venous thromboembolism [facility] Start: 08-01-2023 Insertion of catheter into peripheral vein [facility] Start: 08-01-2023 Measuring intake and output [facility] Start: 08-01-2023 Providing care according to standard [facility] Start: 08-01-2023 End: 08-01-2023 Referral to service [facility] Start: 08-01-2023 [facility] Start: 08-01-2023 Hospital admission, emergency, from emergency room, medical nature [facility] Start: 08-01-2023 Inhalation therapy procedure [facility] Start: 07-30-2023 Advance Directive Discussion Advance Directive Discussion [facility] Start: 07-30-2023 Behavioral Health Screening Behavioral Health Screening [facility] Start: 07-30-2023 Depression Assessment Depression Assessment [facility] Start: 07-29-2023 DEPRESSION ASSESSMENT DEPRESSION ASSESSMENT [facility] Comment on above: Postponed from 07/30/2022 (Declined at t his time) Start: 03-30-2023 Influenza vaccination [facility] Start: 12-24-2022 Hepatitis B surface antibody level LDL CHOLESTEROL [facility] Start: 12-19-2022 SHINGRIX VACCINE (1 of 2) SHINGRIX VACCINE (1 of 2) [facility] Comment on above: Postponed from 11/04/1987 (Insurance Cov erage) Start: 11-27-2022 End: 01-27-2023 CBC panel - Blood by Automated count CBC Lab Routine S/P primary angioplasty with coronary stent Expected: 11/27/2022, Expires: 01/27/2023 [facility] Work Phone: Comment on above: Expected: 11/27/2022, Expires: 3 Start: 11-27-2022 End: 01-27-2023 Comprehensive metabolic 2000 panel - Serum or Plasma COMP METABOLIC PANEL Lab Routine S/P primary angioplasty with coronary stent Expected: 11/27/2022, Expires: 01/27/2023 [facility] Work Phone: Comment on above: Expected: 11/27/2022, Expires: 3 Start: 11-27-2022 End: 01-27-2023 Lipid 1996 panel - Serum or Plasma LIPID PANEL BASIC Lab Routine S/P primary angioplasty with coronary stent Expected: 11/27/2022, Expires: 01/27/2023 [facility] Work Phone: Comment on above: Expected: 11/27/2022, Expires: 3 Start: 11-27-2022 End: 01-27-2023 Prostate specific Ag [Mass/volume] in Serum or Plasma PSA/PROSTSPECAG DIAG Lab Routine Elevated PSA Expected: 11/27/2022, Expires: 01/27/2023 [facility] Work Phone: Comment on above: Expected: 11/27/2022, Expires: 3 Start: 07-30-2022 ADVANCE DIRECTIVE DISCUSSION ADVANCE DIRECTIVE DISCUSSION [facility] Start: 07-30-2022 DEPRESSION ASSESSMENT DEPRESSION ASSESSMENT [facility] Start: 03-30-2022 Influenza vaccination INFLUENZA (#1) [facility] Start: 02-08-2022 Patient referral [facility] Work Phone: Start: 09-18-2021 COVID-19 VACCINE (4 - Booster for Pfizer series) COVID-19 VACCINE (4 - Booster for Pfizer series) [facility] Start: 07-30-2021 DEPRESSION ASSESSMENT DEPRESSION ASSESSMENT [facility] Start: 07-13-2021 COVID-19 VACCINE (4 - Booster for Pfizer series) COVID-19 VACCINE (4 - Booster for Pfizer series) [facility] Start: 05-31-2017 End: 05-31-2017 Appointment Appointment [facility] Work Phone: Start: 05-22-2017 End: 05-22-2017 Appointment Appointment [facility] Work Phone: Start: 05-08-2017 End: 05-08-2017 Appointment Appointment [facility] Work Phone: Start: 05-08-2017 End: 05-08-2017 Arterial exam Arterial exam [facility] Work Phone: Start: 05-08-2017 End: 05-08-2017 N-invas physiologic std lxtr art compl bi PVR with exercise [facility] Work Phone: Start: 2012 RSV Vaccine (1 - 1-dose 75+ series) RSV Vaccine (1 - 1-dose 75+ series) [facility] Start: 1997 RSV Vaccine (1 - 1-dose 60+ series) RSV Vaccine (1 - 1-dose 60+ series) [facility] Start: 11-04-1987 SHINGRIX VACCINE (1 of 2) SHINGRIX VACCINE (1 of 2) [facility] Start: [birth year]-04-1953 Depression Screening Depression Screening [facility] Alanine aminotransfe rase [Enzymatic activity/volume] in Serum or Plasma [facility] Albumin [Mass/volume ] in Serum or Plasma [facility] Alkaline phosphatase [Enzymatic activity/volume] in Serum or Plasma [facility] Anion gap in Serum o r Plasma [facility] Bilirubin, total measurement [facility] BUN/Creatinine ratio [facility] Calcium [Mass/volume ] in Serum or Plasma [facility] Carbon dioxide, tota l [Moles/volume] in Central venous blood [facility] Cholesterol [Mass/vo lume] in Serum or Plasma [facility] Cholesterol in HDL [Mass/volume] in Serum or Plasma [facility] Creatinine [Mass/vol ume] in Serum or Plasma [facility] Cyclic citrullinated peptide IgG Ab [Units/volume] in Serum or Plasma [facility] Cytoplasmic ANCA Screen [facility] Erythrocyte mean corpuscular volume determination [facility] Glucose [Mass/volume ] in Serum or Plasma [facility] Hematocrit [Volume Fraction] of Blood [facility] Hemoglobin [Mass/vol ume] in Blood [facility] Hemoglobin A1c/Hemoglobin.total in Blood [facility] Leukocytes [#/volume ] in Blood [facility] Low density lipoprot ein cholesterol measurement [facility] Mean corpuscular hemoglobin concentration determination [facility] Mean corpuscular hemoglobin determination [facility] Measurement of renal function [facility] Measurement of respiratory function [facility] Neutrophil count [facility] Neutrophil percent differential count [facility] Patient Education ED Epistaxis (Adult) [facility] Work Phone: Patient referral [facility] Work Phone: Platelets [#/volume] in Blood [facility] Potassium measurement [facility] Red blood cell count [facility] Red cell distributio n width determination [facility] Rheumatoid factor [Presence] in Serum [facility] Serum chloride measurement [facility] Sodium measurement [facility] Total cholesterol:HD L ratio measurement [facility] Total protein measurement [facility] Triglycerides measurement [facility] Troponin T.cardiac [Mass/volume] in Serum or Plasma by High sensitivity method [facility] Urea nitrogen [Mass/volume] in Serum or Plasma [facility] VLDL cholesterol measurement [facility] Immunizations Immunization Date Immunization Notes Care Provider Mendoza lee 04-30-2023 COVID-19 vaccine, ag e 12+ yr, season ([employer]) NANDA Durbin PA-C Work Phone: [facility] 04-16-2023 influenza, high dose seasonal, preservative-free NA Durbin PA-C Work Phone: [facility] 04-16-2023 influenza virus vacc ine, unspecified formulation Brigitte Segal APRN.FIELD MARKETING MANAGER Work Phone: [facility] 05-16-2022 influenza (HD-IIV4) vaccine, age 65+ yr, high dose, quadrivalent, PF (FLUZONE HIGH-DOSE) Brigitte Segal APRN.FIELD MARKETING MANAGER Work Phone: [facility] 05-18-2021 COVID-19 vaccine, ag e 12+ yr (PFIZER-BIONTECH - PURPLE TOP) NA Durbin PA-C Work Phone: [facility] 05-18-2021 influenza (HD-IIV4) vaccine, age 65+ yr, high dose, quadrivalent, PF (FLUZONE HIGH-DOSE) NA Durbin PA-C Work Phone: [facility] 05-18-2021 influenza, high dose seasonal, preservative-free NA Durbin PA-C Work Phone: [facility] 11-01-2020 COVID-19 vaccine, ag e 12+ yr (PFIZER-BIONTECH - PURPLE TOP) NA Durbin PA-C Work Phone: [facility] 10-08-2020 COVID-19 vaccine, ag e 12+ yr (PFIZER-BIONTECH - PURPLE TOP) NA Durbin PA-C Work Phone: [facility] 04-26-2020 influenza, high-dose , quadrivalent vaccine (FLUZONE HIGH DOSE QUADRIVALENT) NA Durbin PA-C Work Phone: [facility] 04-13-[address] Brian Mackenzie III Work Phone: [facility] 04-24-2018 influenza, high dose seasonal, preservative-free NA Durbin PA-C Work Phone: [facility] 05-14-2017 influenza, high dose seasonal, preservative-free NA Durbin PA-C Work Phone: [facility] 05-10-2016 pneumococcal conjuga te vaccine, 13 valent NANDA Durbin PA-C Work Phone: [facility] 05-10-2016 tetanus toxoid, redu lane diphtheria toxoid, and acellular pertussis vaccine, adsorbed NA Ramakrishna BIRD Work Phone: [facility] 04-29-[address] Brian Mackenzie III Work Phone: [facility] 03-27-2008 pneumococcal polysaccharide vaccine, 23 valent NANDA Durbin PA-C Work Phone: [facility] Work Phone: Payers Date Payer Category Payer Self-pay [id number] 2017 Medicare ([employer] [facility]) PRIMETIM E [id number] 2017 Unknown PRIMETIME PRIMET [place]O O POS [id number] 2017-Present [phone] [place] [id number] [facility] [id number] 2017 Unknown PRIMETIME PRIMET [place] O POS [id number] 2017-Present [phone] [place] [id number] [facility] [id number] 2009 Unknown [id number] Unknown [id number] Unknown [id number]. 2.462 Unknown [id number]. 2.462 Unknown [id number]. 2.462 Unknown [id number]. 2.462 Unknown [id number] [id number]. 2.462 Unknown [id number] [id number]. 2.462 Unknown [id number] [id number]. 2.462 Unknown [id number] [id number]. 2.462 Unknown [id number] [id number]. 2.462 Unknown [id number] [id number]. 2.462 Unknown [id number]. 2.462 Unknown [id number] [id number]. 2.462 Unknown [id number] [id number]. 2.462 Unknown [id number]. 2.462 Unknown [id number]. 2.462 Social History Date Type Detail Facility Start: 07-11-2017 End: 02-08-2025 Tobacco smoking status [facility] Ex-smoker [facility] Work Phone: Start: 12-19-2021 End: 09-19-2024 Alcohol intake Current drinker of alcohol (finding) [facility] Start: 1935 Sex Assigned At Not on file C [facility] Start: 12-13-2021 End: 12-23-2021 Exposure to SARS-CoV-2 (event) Not sure [facility] Start: 02-08-2022 End: 08-01-2023 Tobacco smoking status NHIS Unknown if ever smoked [facility] Start: 08-26-2020 Occasional [facility] Start: 08-26-2020 None [facility] Start: 08-26-2020 Spouse/ Signif icant Other [facility] Start: 08-26-2020 Non-smoker [facility] Start: 1935 Sex Assigned At Male W [facility] History of tobacco use Current smoker [facility] Start: 07-11-2017 End: 11-27-2022 Tobacco use and exposure Smokeless tobacco non-user [facility] Start: 11-27-2022 Tobacco Comment quit 1999 [facility] Start: 12-22-2022 End: 02-08-2023 History of Social function [facility] Start: 12-22-2022 End: 02-08-2023 Tobacco use panel [facility] Adult Depression Screening Assessment 0 [facility] Goals Date Patient Goal Desired Activity /State Functional Status Date Assessment Result Facility 02-08-2025 Functional status Activity Abili ty With Assist of 1 [facility] Work Phone: 09-15-2024 Functional status Chair [facility] Work Phone: 08-04-2023 Functional status Ambulates [facility] Work Phone: 09-21-2017 Are you deaf, or do you have serious difficulty hearing No 09/21/2017 1:31 PM Brian Whitman III, MD No [facility] 09-21-2017 Are you blind, or do you have serious difficulty seeing, even when wearing glasses No 09/21/2017 1:31 PM Brian Whitman III, MD No [facility] 09-21-2017 Do you have serious difficulty walking or climbing stairs No 09/21/2017 1:31 PM Brian Whitman III, MD No [facility] 09-21-2017 Do you have difficul ty dressing or bathing No 09/21/2017 1:31 PM Brian Whitman III, MD No [facility] 09-21-2017 Because of a physica l, mental, or emotional condition, do you have difficulty doing errands alone such as visiting a physician's office or shopping No 09/21/2017 1:31 PM Brian Whitman III, MD No [facility] Mental Status Date Assessment Result Facility 02-08-2025 Cognitive function Voice/Name [facility] Work Phone: 09-15-2024 Cognitive function Voice/Name [facility] Work Phone: 08-03-2023 Cognitive function Voice/Name [facility] Work Phone: 08-01-2023 Cognitive function Level Of Cons ciousness Awake;Alert;Appropriate;Fol lows Commands [facility] Work Phone: 09-21-2017 Because of a physica l, mental, or emotional condition, do you have serious difficulty concentrating, remembering, or making decisions No 09/21/2017 1:31 PM Brian Whitman III, MD [facility] Clinical Notes 08-30-2017 to 02-08-2025 Note Date & Type Note Facility 02-08-2025 History and physical note Note Date/Time February 08, 2025 6:57pm [facility] Medical Records Department [address] [place] [address] H&P Exam - Hospitalist 02/08/25 1845 MR#: [id number] Acct: [id number] Name: CLARK LYLES Rep #:[id number] : 1935 89 From: Janice Sanford MD PCP: Brigitte Segal, PHOTO FINISH PHOTOGRAPHER Status:REG ER Location: ED HPI - General [...] HLD,Former tobacco use who presents to the [facility] ED on 02/10/2025 with history of [...] not a candidate for tenecteplase. [facility] Medical History Chronic hypoxic respiratory failure, on home oxygen therapy Pulmonary hypertension COPD (chronic obstructive pulmonary disease) COVID-19 virus detected (08/23/20) Anxiety and depression Chronic anemia Pneumonia due to COVID-19 virus GI bleed (12/2019) Atherosclerosis of coronary artery of apache heart without angina pectoris Peripheral vascular occlusive [...] HLD,Former tobacco use who presents to the [facility] ED on 02/10/2025 with history of [...] 16 minutes. Charges/Coding Visit Charges Inpatient E&M: 32827 Init Hosp L3 Procedures Hospitalists Procedures: 93639 Advncd Care Plan 30 Min 02/08/251848 <Electronically [...] Sanford MD> Cosigner Signature (if applicable): cc: MARAINA Segal; Dr. Janice Sanford MD ~* Signed [...] acid and multivitamin. 02/08/251856<Electronically signed by Janice Snaford MD> Cosigner Signature (if applicable): cc: MARIANA Segal; Dr. Janice Sanford MD ~* Signed [facility] Work Phone: 1(254) 157-113107-13-2025 History and physical note [facility] Medical Records Department [address] [place] [address] H&P Exam - Hospitalist 02/08/251844 MR#: [id number] Acct: [id number] Name: CLARK LYLES Rep #:[id number] : 1935 89 From: Janice Sanford MD PCP: Brigitte Segal, PHOTO FINISH PHOTOGRAPHER Status:REG ER Location: ED HPI - General [...] HLD,Former tobacco use who presents to the [facility] ED on 02/10/2025 with history of [...] not a candidate for tenecteplase. [facility] Medical History Chronic hypoxic respiratory failure, on home oxygen therapy Pulmonary hypertension COPD (chronic obstructive pulmonary disease) COVID-19 virus detected (08/23/20) Anxiety and depression Chronic anemia Pneumonia due to COVID-19 virus GI bleed (12/2019) Atherosclerosis of coronary artery of apache heart without angina pectoris Peripheral vascular occlusive [...] HLD,Former tobacco use who presents to the [facility] ED on 02/10/2025 with history of [...] 16 minutes. Charges/Coding Visit Charges Inpatient E&M: 25749 Init Hosp L3 Procedures Hospitalists Procedures: 59292 Advncd Care Plan 30 Min 02/08/25 184 [...] Segal; Dr. Janice Sanford MD ~* Signed [facility]04-04-2025 Telephone encounter Note* Telephone Encounter - Jaqueline Andre RN - 10/31/2024 3:29 PM EDT Palliative Medicine Referral Assessment Referral Accepted: No, Reason for Denial: Chart reviewed, pal med order meant for [facility] in [place]. Jaqueline Andre RN October 31, 2024 [facility]04-04-2025 Miscellaneous Notes* Telephone Encounter - Jaqueline Andre RN - 10/31/2024 3:29 PM EDT Palliative Medicine Referral Assessment Referral Accepted: No, Reason for Denial: Chart reviewed, pal med order meant for [facility] in [place]. Jaqueline Andre RN October 31, 2024 documented in this encounterCher[facility]03-31-2025 Telephone encounter Note * Telephone Encounter [...] on her brothers phone number as well. [facility]03-31-2025 Miscellaneous Notes* Telephone Encounter - Shira [...] - 10/27/2024 3:47 PM EDT Rohan with [facility] calls to report family is requesting order for palliative care. Fax order to [facility] in [place]. Rohan also reports he saw pt today and is extending nurse to once a week x 2 weeks. Pt will then be discharged from Nursing. Rohan reports that Pulmonary gave new dx for pt of COPD and pulmonary htn. Amita Kim LPN documented in this encounterCherrington Hospital03-31-2025 Telephone encounter Note * Telephone Encounter [...] into accepting palliative care. Shira Mcgill RN [facility]03-31-2025 Telephone encounter Note* Telephone Encounter - Brigitte Segal APRN.CNP - 10/27/2024 4:50 PM EDT Please ask patient if he wants a palliative care consult? Palliative care is not end-of-life care but symptom management and chronic disease. Consult placed if patient wishes to be referred. [facility]03-31-2025 Telephone encounter Note* Telephone Encounter - Amita Kim LPN - 10/27/2024 3:47 PM EDT Rohan with [facility] calls to report family is requesting order for palliative care. Fax order to [facility] in [place]. Rohan also reports he saw pt today and is extending nurse to once a week x 2 weeks. Pt will then be discharged from Nursing. Rohan reports that Pulmonary gave new dx for pt of COPD and pulmonary htn. Amita Kim LPN [facility]03-20-2025 Evaluation note* Diagnosis Onset Date Resolution Status Admit Date COPD (chronic obstructive pulmonary disease) inactive October 16 12:57pm Pulmonary hypertension inactive [facility] 2024 12:57pm CVA (cerebral vascular accident) acute February 08, 2025 7:47pm [facility] Work Phone: 1(689) 796-115103-19-2025 Telephone encounter Note* Telephone Encounter - Radha Green, ZACKARY - 10/15/2024 3:02 PM EDT Paulino- nurse- [facility]- reports he did patient eval today and will extend HH visits to 1 x week for 2 weeks. Pt is still on 4 L O2 after pneumonia. Pt will see pulm tomorrow. [facility]03-19-2025 Miscellaneous Notes* Telephone Encounter - Radha Green, ZACKARY - 10/15/2024 3:02 PM EDT Paulino- nurse- [facility]- reports he did patient eval today and will extend [facility] visits to 1 x week for 2 weeks. Pt is still on 4 L O2 after pneumonia. Pt will see pulm tomorrow. documented in this encounterCher[facility] Hospital03-07-2025 Telephone encounter Note * Telephone Encounter - Shirley Rivera MA - 10/03/2024 3:55 PM EST Detailed message left on secure line for Jamie [facility] Shirley Rivera MA October 03, 2024 3:56 PM [facility]03-07-2025 Miscellaneous Notes* Telephone Encounter - Shirley Rivera MA - 10/03/2024 3:55 PM EST Detailed message left on secure line for Jamie [facility] Shirley Rivera MA October 03, 2024 3:56 PM * Telephone Encounter - Brigitte Segal APRN.CNP - 10/03/2024 2:59 PM EST Yes. Please increase O2 to 4l. Thank you for the recert. * Telephone Encounter - Mary Balderas RN - 10/03/2024 2:49 PM EST Jamie with [facility] is calling due to he [...] called back with information. documented in this encounterCherrington Hospital03-07-2025 Telephone encounter Note * Telephone Encounter - Brigitte Segal APRN.CNP - 10/03/2024 2:59 PM EST Yes. Please increase O2 to 4l. Thank you for the recert. [facility]03-07-2025 Telephone encounter Note* Telephone Encounter - Mary Balderas RN - 10/03/2024 2:49 PM EST Jamie with [facility] is calling due to he [...] advise, Jamie needs called back with information. [facility]02-21-2025 Telephone encounter Note* Telephone Encounter - Brigitte Segal APRN.CNP - 09/19/2024 3:33 PM EST Sounds good. Agree. [facility]02-21-2025 Miscellaneous Notes* Telephone Encounter - Brigitte Segal APRN.CNP - 09/19/2024 3:33 PM EST Sounds good. Agree. * Telephone Encounter - Whit Sheridan RN - 09/19/2024 2:20 PM EST Rohan calling with [facility] Physical Therapy with plan of care for patient. Pt will be seen 1x per week for 4 weeks for functional mobility training. No call back needed if provider agreeable. Whit Sheridan RN documented in this encounterCherrington Hospital02-21-2025 Instructions* Patient Instructions* Brigitte Segal APRN.CNP - 09/19/2024 3:24 PM EST 1) Mirtazapine 7.5 mg at bedtime for sleep 2) Follow up in 6 months documented in this encounterCherrington Hospital02-21-2025 NoteHNO ID: [id number] Author: BRIGITTE SEGAL APRN.CNP Service: ? Author [...] with excison cord lipoma performed by Dr. Rboe Mackenzie at [facility] REVSC OPN/PRQ FEM/POP W/STNT/ANGIOP VSL 03-18-14 [...] content not included)...[facility]02-21-2025 History of Present illness Narrative* Brigitte Segal APRN.FIELD MARKETING MANAGER - 09/19/2024 3:08 PM EST This [...] lipoma performed by Dr. Robe Mackenzie at [facility] REVSC OPN/PRQ FEM/POP W/STNT/ANGIOP SM VSL [...] no tremor 7. 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- ICD9: 414.01, ICD10: [...] improvement. Brigitte Segal APRN.JANET documented in this encounterCherrington Hospital02-21-2025 Telephone encounter Note * Telephone Encounter - Whit Sheridan RN - 09/19/2024 2:20 PM EST Rohan calling with [facility] Physical Therapy with plan of care for patient. Pt will be seen 1x per week for 4 weeks for functional mobility training. No call back needed if provider agreeable. Whit Sheridan RN [facility]02-20-2025 Telephone encounter Note* Telephone Encounter - Shirley Rivera MA - 09/18/2024 10:47 AM EST HHN was not at home, just granddaughter. She did report no cough. Pt has appointment with PCP tomorrow. [facility]02-20-2025 Miscellaneous Notes* Telephone Encounter - Shirley [...] - 09/18/2024 9:50 AM EST Haley from [facility] calls and reports that granddaughter [...] provider tomorrow 09/19/2024. Please Contact Haley turk [phone]. Tracy Cedillo RN * Telephone Encounter - [...] 09/17/2024 12:52 PM EST Hellen calling from [facility] to report plan of care for patient and snf will visit patient 1 time a week for 1 week and 2 times a week for 2 weeks. Prison will work with patient on wound care (patient has skin tear to right elbow) and management of O2 levels. Hellen had no orders for wound care. Hellen cleaned wound and put on Vaseline gauze and band aid. Hellen also notes that patient is on Oxygen and thought that he was only going to be on oxygen for a week. 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 Hellen did not know if provider wanted to address Oxygen use. Patient is scheduled to see PCP 09/19/2024. No call back needed unless there are questions. Tracy Cedillo RN documented in this encounterCherrington Hospital02-20-2025 Telephone encounter Note * Telephone Encounter - Brigitte Segal APRN.CNP - 09/18/2024 10:41 AM EST Absolutely keep at 3L. Any report on lung sounds? [facility]02-20-2025 Telephone encounter Note* Telephone Encounter - Tracy Cedillo RN - 09/18/2024 9:50 AM EST Haley from [facility] calls and reports that granddaughter [...] provider tomorrow 09/19/2024. Please Contact Haley back [phone]. Tracy Cedillo RN [facility]02-20-2025 Telephone encounter Note* Telephone Encounter - Brigitte Segal APRN.CNP - 09/18/2024 8:08 AM EST Patient will need to stay on oxygen until he follows up with pulmonary. I have not seen him since February 2024 therefore I am not really able to shed any light on his oxygen use. Not common to use oxygen for only a week. [facility]02-19-2025 Telephone encounter Note* Telephone Encounter - Tracy Cedillo RN - 09/17/2024 12:52 PM EST Hellen calling from [facility] to report plan of care for patient and snf will visit patient 1 time a week for 1 week and 2 times a week for 2 weeks. Prison will work with patient on wound care (patient has skin tear to right elbow) and management of O2 levels. Hellen had no orders for wound care. Hellen cleaned wound and put on Vaseline gauze and band aid. Hellen also notes that patient is on Oxygen and thought that he was only going to be on oxygen for a week. 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 Hellen did not know if provider wanted to address Oxygen use. Patient is scheduled to see PCP 09/19/2024. No call back needed unless there are questions. Tracy Cedillo RN [facility]02-17-2025 Telephone encounter Note* Telephone Encounter [...] 5 mg daily to 10 mg daily [facility]02-17-2025 Miscellaneous Notes* Telephone Encounter - [...] - 09/15/2024 3:30 PM EST Rochelle from [facility] calls and states that patient is being discharged from [facility] PCU on 09/05/2024 with the diagnosis of hypoxia and acute respiratory failure. Rochelle asking if provider willing to follow patient with orders for snf, physical therapy, occupational therapy and social work. If agreeable please give Rochelle a call back . Thank you, Tracy Cedillo RN documented in this encounterCher[facility] Hospital02-17-2025 Telephone encounter Note * Telephone Encounter - Brigitte Segal APRN.CNP - 09/15/2024 4:41 PM EST Yes. Of course [facility]02-17-2025 Telephone encounter Note* Telephone Encounter - Tracy Cedillo RN - 09/15/2024 3:30 PM EST Rochelle from [facility] calls and states that patient is being discharged from [facility] on 09/05/2024 with the diagnosis of hypoxia and acute respiratory failure. Rochelle asking if provider willing to follow patient with orders for snf, physical therapy, occupational therapy and social work. If agreeable please give Rochelle a call back . Thank you, Tracy Cedillo RN [facility]02-17-2025 [facility] Medical Records Department [address] [place] [id number] Discharge Summary 09/15/24 0952 MR#: [id number] Acct: [id number] Name: CLARK LYLES Rep #: [id number] : 1935 88 From: John Soliz MD PCP: MARIANA Humphreys Status:ADM IN [id number] Date of Admission: 09/07/24 Date of [...] 03/17/14 multivitamin 1 ea PO DAILY [facility] 05/16/17 tamsulosin 0.4 mg capsule 0.4 [...] Palpation of Joints or (more content not included)...[facility]02-11-2025 Telephone encounter Note* Telephone Encounter - Brigitte Segal APRN.JANET - 09/09/2024 10:00 AM EST Patient was admitted to [facility] on September 07 to 2024 for [...] is a DNR CC with no intubation. [facility]02-11-2025 Miscellaneous Notes* Telephone Encounter - Brigitte Segal APRN.CNP - 09/09/2024 10:00 AM EST Patient was admitted to [facility] on September 07 to 2024 for [...] CC with no intubation. documented in this encounterCher[facility] Hospital02-09-2025 Evaluation note* Diagnosis Onset Date Resolution Status Admit Date Hypoxia inactive September 07, 2024 12:42pm Pulmonary hypertension acute [facility] 2024 12:57pm COPD (chronic obstructive pulmonary disease) chronic October 16, 025 12:57pm [facility] Work Phone: 1(782) 987-184908-29-2024 Instructions* Patient Instructions* Brigitte Segal APRN.CNP - 03/27/2024 8:18 AM EDT 1) eliminate omeprazole but continue pantoprazole 2) discontinue trazodone, replaced with Tylenol PM 3) follow up in as scheduled documented in this encounterCherrington Hospital08-29-2024 NoteHNO ID: [id number] Author: BRIGITTE SEGAL APRN.CNP Service: ? Author [...] lipoma performed by Dr. Robe Mackenzie at [facility] 03-18-14: REVSC OPN/PRQ FEM/POP W/STNT/ANGIOP SM [...] content not included)...[facility]08-29-2024 History of Present illness Narrative* Brigitte Segal APRN.FIELD MARKETING MANAGER - 03/27/2024 8:03 AM EDT This [...] lipoma performed by Dr. Robe Mackenzie at [facility] 03-18-14: REVSC OPN/PRQ FEM/POP W/STNT/ANGIOP SM [...] improvement. Brigitte Segal APRN.CNP documented in this encounterCher[facility] Hospital08-15-2024 Telephone encounter Note * Telephone Encounter [...] Velez LPN March 13, 2024 10:13 AM [facility]08-15-2024 Miscellaneous Notes* Telephone Encounter - Renetta [...] 13, 2024 10:13 AM documented in this encounterCher[facility] Hospital07-30-2024 Telephone encounter Note * Telephone Encounter - Shirley Rivera MA - 02/26/2024 8:28 AM EDT Patient was made aware of the results. Patient verbalizes understanding. Shirley Rivera Ma [facility]07-30-2024 Miscellaneous Notes* Telephone Encounter - Shirley [...] does on the pantoprazole. documented in this encounterCherrington Hospital07-30-2024 Telephone encounter Note * Telephone Encounter - Brigitte Segal APRN.CNP - 02/26/2024 8:00 AM EDT Patient does not have MyChart. Please let him know that he was negative for H. pylori the bacteria that causes ulcers. Blood counts are okay, kidney function liver function, and pancreas are all normal. Lets see how he does on the pantoprazole. [facility]07-29-2024 Instructions* Patient Instructions* Brigitte Segal APRN.CNP - 02/25/2024 8:50 AM EDT 1) Check labs 2) Flagyl 500 mg 3 x day 3) Cipro 500 mg 2 x day 4) Start pantoprazole 40 mg daily 5) Follow up in 1 month documented in this encounterCher[facility] Hospital07-29-2024 NoteHNO ID: [id number] Author: BRIGITTE SEGAL APRN.CNP Service: ? Author [...] lipoma performed by Dr. Robe Mackenzie at [facility] REVSC OPN/PRQ FEM/POP W/STNT/ANGIOP SM VSL [...] - Recheck in 1 month Brigitte Segal APRN.[facility]07-29-2024 History of Present illness Narrative* Brigitte Segal APRN.[facility] - 02/25/2024 8:35 AM EDT This [...] lipoma performed by Dr. Robe Mackenzie at [facility] REVSC OPN/PRQ FEM/POP W/STNT/ANGIOP SM VSL [...] month Brigitte Segal APRN.JANET documented in this encounterCher[facility] Hospital06-07-2024 Telephone encounter Note * Telephone Encounter - Shirley Rivera MA - 01/04/2024 3:40 PM EDT Letter mailed to patient [facility]06-07-2024 Miscellaneous Notes* Telephone Encounter - Shirley Rivera MA - 01/04/2024 3:40 PM EDT Letter mailed to patient * Telephone Encounter - Shirley Rivera MA - 01/01/2024 4:48 PM EDT Attempted to call, no answer * Telephone Encounter - Walter Gomez MD - 12/28/2023 2:27 PM EDT Let him know his labs are stable. documented in this encounterCher[facility] Hospital06-04-2024 Telephone encounter Note * Telephone Encounter - Shirley Rivera MA - 01/01/2024 4:48 PM EDT Attempted to call, no answer [facility]06-03-2024 Telephone encounter Note* Telephone Encounter - Victoria Gleason - 12/31/2023 2:51 PM EDT Patient has been identified by name and date of : Yes, Provider Justin Durbin PA-C Date 12/31/2023 Time 2:54 pm Patient saPRX phones for refill(s): Requested Prescriptions Pending Prescriptions [...] 07/01/2024 Please advise. Thank you. Victoria Berkowitz. [facility]06-03-2024 Miscellaneous Notes* Telephone Encounter - Victoria [...] Thank you. Victoria Berkowitz. documented in this encounterCher[facility] Hospital05-31-2024 Telephone encounter Note * Telephone Encounter - Walter Gomez MD - 12/28/2023 2:27 PM EDT Let him know his labs are stable. [facility] Work Phone: 1(936) 153-786005-28-2024 Instructions* Patient Instructions* Radha Durbin PA-C - 12/25/2023 9:46 AM EDT Please schedule as soon as possible [facility] documented in this encounterCherrington Hospital05-28-2024 History of Present illness Narrative* Radha Durbin PA-C - 12/25/2023 9:00 AM EDT 88 year old male with c/o here for follow up. 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 08/02/2023 echocardiogram [facility]: LV size WNL, mild concentric LVH, [...] to suggest ischemia. 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 [...] Lymph 1.00 - 4.00 k/uL 0.81 (L) Nolan% % 9.0 Abs Nolan <0.87 k/uL 0.99 (H) Eosin% % 2.6 [...] because he felt bad in the mornings. [place] better after he stopped. Can think of [...] lipoma performed by Dr. Robe Mackenzie at [facility] REVSC OPN/PRQ FEM/POP W/STNT/ANGIOP SM VSL [...] Chronic Blood Loss Coronary Artery Disease Involving Nenana Coronary Artery of [place] Heart S/P Primary Angioplasty With Coronary Stent [...] refill. ASSESSMENT/PLAN: 1. 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 Radha Durbin PA-C documented in this encounterCherrington Hospital05-28-2024 NoteHNO ID: [id number] Author: Radha DURBIN PA-C Service: ? Author Type: Physician Aircraft Dispatcher Type: Progress Notes Filed: 12/26/2023 14:22 Note Text: 88 year old male with c/o here for follow up. 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 08/02/2023 echocardiogram [facility]: LV size WNL, mild concentric LVH, [...] to suggest ischemia. 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 [...] Lymph 1.00 - 4.00 k/uL 0.81 (L) Nolan% % 9.0 Abs Nolan <0.87 k/uL 0.99 (H) Eosin% % 2.6 [...] because he felt bad in the mornings. [place] bett (more content not included)...[facility]05-16-2024 Telephone encounter Note* Telephone Encounter - Kassandra Quispe RN - 12/13/2023 4:55 PM EDT Spoke with patient. Gave permission for sonQuincy to receive medical information. Spoke with Quincy and let him know script was sent. Kassandra Quispe RN [facility]05-16-2024 Miscellaneous Notes* Telephone Encounter - Kassandra [...] 12/25/2023 Please return call to Quincy venegas [phone] Please advise. Thank you. Danita Staples. documented in this encounterCherrington Hospital05-16-2024 Telephone encounter Note * Telephone Encounter [...] we are unable to give him information. [facility]05-16-2024 Telephone encounter Note* Telephone Encounter - [...] 12/25/2023 Please return call to Quincy venegas [phone] Please advise. Thank you. Danita Staples. [facility]02-27-2024 History of Present illness Narrative* Radha Durbin PA-C - 09/25/2023 9:00 AM EST 87 year old male with c/o here for 3 month follow up Hospital discharge summary Facility: [facility] Date of admission 08/01/2023 Date of discharge 08/04/2023 Discharge diagnoses and Plan 1. Acute hypoxia: Admitted through [facility] emergency department with complaint of progressive [...] in the 80's percentile. Went to [facility] and sent to ER. Placed on O2. [...] Rocephin and Zithromax was continued 08/02/2023 echocardiogram [facility]: LV size WNL, mild concentric LVH, [...] dehydration or weakness. 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 [...] Lymph 1.00 - 4.00 k/uL 0.81 (L) Nolan% % 9.0 Abs Nolan <0.87 k/uL 0.99 (H) Eosin% % 2.6 [...] because he felt bad in the mornings. [place] better after he stopped. 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 Robe Mackenzie at [facility] OPN/PRQ FEM/POP W/STNT/ANGIOP VSL 03-18-14 [...] Chronic Blood Loss Coronary Artery Disease Involving Nenana Coronary Artery of Nenana Heart S/P Primary Angioplasty With Coronary Stent [...] refill. ASSESSMENT/PLAN: 1. 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 S/P primary angioplasty with coronary stent - ICD9: V45.82, ICD10: Z95.5 3. Angina pectoris (HCC) - ICD9: 413.9, ICD10: I20.9 4. Atherosclerosis of aorta (HCC) - ICD9: 440.0, ICD10: I70.0 Stable, no ischemic sx, see [facility] cardiology 5. Essential hypertension, benign - ICD9: [...] which included preparing to see the patient, [id number] patient care, completing clinical documentation, obtaining and/or [...] data. Radha Durbin PA-C documented in this encounterCher[facility] Hospital01-06-2024 Discharge summary Author Jerrell Faith [facility] August 04, 2023 12:59pm Note Date/Time August 04, 2023 11 :14am [facility] Medical Records Department [address] [place] [address] Discharge Summary 08/04/23 1114 MR#: [id number] Acct: [id number] Name: CLARK LYLES Rep #:[id number] : 1935 87 From: Jerrell Faith MD PCP: CHRISTINE Brown Status:ADM I N Location: [place] [id number] Providers Date of Admission: 08/01/23 Date [...] 76.4 H, Lymph % (Auto) 8.9 L, Nolan % (Auto) 9.4, Eos % (Auto) 4.1, [...] Self Care Charges/Coding Visit Charges Inpatient E&M: 02756 Disch Hosp >30min 08/04/23 1259 <Electronically signed by Jerrell Faith MD> Cosigner Signature (if applicable): CC: Dr. Jerrell Faith MD; CHRISTINE Brown~ Signed [facility] Work Phone: 1(595) 815-266601-06-2024 Progress note Author Jerrell Faith [facility] August 04, 2023 11:09am Note Date/Time August 04, 2023 8: 05am [facility] Medical Records Department [address] [place] [address] Progress Note - Hospitalist 08/04/23804 MR#: [id number] Acct: [id number] Name: CLARK LYLES Rep #:[id number] : 1935 87 From: Jerrell Faith MD PCP: CHRISTINE Brown Status:ADM I N Location: [place] [address] Reason for Visit Reason for Visit: Diagnoses [...] 76.4 H, Lymph % (Auto) 8.9 L, Nolan % (Auto) 9.4, Eos % (Auto) 4.1, [...] 35 Minutes Charges/Coding Visit Charges Inpatient E&M: 11151 Subs Hosp L2 08/04/23 1109 <Electronically signed by Jerrell Faith MD> Cosigner Signature (if applicable): CC: ~ Signed [facility] Work Phone: 1(202) 528-975801-05-2024 Progress note Author Jerrell Faith [facility] August 03, 2023 9:52am Note Date/Time August 03, 2023 8: 06am [facility] Medical Records Department [address] [facility] [place] [address] Progress Note - Hospitalist 08/03/23 08 MR#: [id number] Acct: [id number] Name: CLARK LYLES Rep #:[id number] : 1935 87 From: Jerrell Faith MD PCP: CHRISTINE Brown Status:ADM I N Location: [place] [address] Reason for Visit Reason for Visit: Diagnoses [...] documentation, 50Minutes Charges/Coding Visit Charges Inpatient E&M: 28759 Subs Hosp 08/03/23 0952 <Electronically signed by Jerrell Faith MD> Cosigner Signature (if applicable): CC: ~ Signed [facility] Work Phone: 1(139) 508-835201-04-2024 Progress note Author Jerrell Faith [facility] August 02, 2023 3:17pm Note Date/Time August 02, 2023 10 :55am [facility] Medical Records Department [address] [place] [address] Progress Note - Hospitalist 08/02/23 1055 MR#: [id number] Acct: [id number] Name: CLARK LYLES Rep #:[id number] : 1935 87 From: Jerrell Faith MD PCP: CHRISTINE Brown Status:ADM I N Location: [place] [address] Reason for Visit Reason for Visit: Patient [...] 82.0 H, Lymph % (Auto) 5.7 L, Nolan %(Auto) 10.3 H, Eos % (Auto) 0.9, [...] 88.2 H, Lymph % (Auto) 5.4 L, Nolan % (Auto) 5.8, Eos % (Auto) 0.0, [...] documentation, 50Minutes Charges/Coding Visit Charges Inpatient E&M: 66961 [facility] Hosp 08/02/23 1517 <Electronically signed by Jerrell Faith MD> Cosigner Signature (if applicable): CC: ~ Signed [facility] Work Phone: 1(768) 662-253101-03-2024 Discharge summary Author Lewis Sutton [facility] August 01, 2023 4:18pm Note Date/Time August 01, 2023 1: 26pm [facility] Medical Records Department [address] [place] [address] Emergency Department Summary 08/01/23 MR#: [id number] Acct: [id number] Name: CLARK LYLES Rep #:[id number] : 1935 87 From: Lewis Sutton MD PCP: CHRISTINE Brown Status:ADM I N Location: [place] [address] HPI History of Present Illness Chief Complaint: [...] he has dyspnea on exertion as well. [facility] Medical History Acute respiratory failure with hypoxia Anxiety Anxiety and depression Atherosclerosis of coronary artery of apache heart without angina pectoris BPH (benign prostatic [...] 82.0 H Lymph % (Auto) 5.7 L Nolan % (Auto) 10.3 H Eos % (Auto) [...] 15:00 EST Reading Location ID and State: [address] [place] [address] Tel , Service support , Discharge Plan Dx/Rx/DC Orders Clinical Impression: Hypoxia, Pneumonia, SOB (shortness of breath), Hypokalemia Disposition Disposition: Acute Care Hospital [facility] What to do if you have Problems For any increased pain, shortness of breath, bleeding, nausea or vomiting, chestpain, or any unexpected problems, contact your Primary Care Provider. Call [facility] ([phone]) or report to the closest Emergency Room. Call 911 if necessary. 08/01/23 1618 <Electronically signed by Lewis Sutton MD> Cosigner Signature (if applicable): CC: CHRISTINE Brown ~ Signed [facility] Work Phone: 1(115) 368-764401-03-2024 Discharge summary Author Lewis Sutton [facility] August 01, 2023 4:18pm Note Date/Time August 01, 2023 1: 26pm [facility] Medical Records Department [address] [place] [address] Emergency Department Summary 08/01/23 MR#: [id number] Acct: [id number] Name: CLARK LYLES Rep #:[id number] : 1935 87 From: Lewis Sutton MD PCP: CHRISTINE Brown Status:ADM I N Location: [address] History of Present Illness Chief Complaint: [...] he has dyspnea on exertion as well. [facility] Medical History Acute respiratory failure with hypoxia Anxiety Anxiety and depression Atherosclerosis of coronary artery of apache heart without angina pectoris BPH (benign prostatic [...] 82.0 H Lymph % (Auto) 5.7 L Nolan % (Auto) 10.3 H Eos % (Auto) [...] 15:00 EST Reading Location ID and State: [facility] / [place] Tel , Service support , Discharge Plan Dx/Rx/DC Orders Clinical Impression: Hypoxia, Pneumonia, SOB (shortness of breath), Hypokalemia Disposition Disposition: Acute Care Hospital [facility] What to do if you have Problems For any increased pain, shortness of breath, bleeding, nausea or vomiting, chestpain, or any unexpected problems, contact your Primary Care Provider. Call [facility] ([phone]) or report to the closest Emergency Room. Call 911 if necessary. 08/01/23 1618 <Electronically signed by Lewis Sutton MD> Cosigner Signature (if applicable): CC: CHRISTINE Brown ~ Signed [facility] Work Phone: 1(480) 369-652712-12-2023 Miscellaneous Notes* Telephone Encounter - Davina Fajardo - 07/10/2023 9:33 AM EST Patient has been identified by name and date of : Yes Requested Prescriptions Pending Prescriptions Disp Refills tamsulosin (FLOMAX) 0.4 mg 180 capsule 3 Sig: Take 2 capsules by mouth once daily. RX INSTRUCTIONS: Patient aware RX will be sent to [facility] pharmacy. No need to notify patient. Davina Fajardo documented in this encounterCherrington Hospital12-04-2023 Miscellaneous Notes* Telephone Encounter - Shirley [...] diarrhea. Chaz Vega PA-C documented in this encounterCherrington Hospital11-30-2023 History of Present illness Narrative* Radha Durbin PA-C - 06/28/2023 9:00 AM EST 87 year old male with c/o here for 3 month follow up Still having issues with diarrhea, watery to mushy. No pain Moving bowels twice a day, previously once a day. 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 [...] because he felt bad in the mornings. [place] better after he stopped- probably a year [...] lipoma performed by Dr. Robe Mackenzie at [facility] OPN/PRQ FEM/POP W/STNT/ANGIOP SM VSL [...] Chronic Blood Loss Coronary Artery Disease Involving Nenana Coronary Artery of Nenana Heart S/P Primary Angioplasty With Coronary Stent [...] refill. ASSESSMENT/PLAN: 1. 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 S/P primary angioplasty with coronary stent - ICD9: V45.82, ICD10: Z95.5 3. Angina pectoris (HCC) - ICD9: 413.9, ICD10: I20.9 4. Atherosclerosis of aorta ([facility]) - ICD9: 440.0, ICD10: I70.0 5. Essential hypertension, benign - ICD9: 401.1, ICD10: I10 Stable, continue meds. No ischemic. 6. Hyperlipidemia LDL goal <100 - ICD9: 272.4, ICD10: E78.5 - Controlled - Continue current medications - Counseled on healthy diet and regular exercise 7. PAD (peripheral artery disease) ([facility]) - ICD9: 443.9, ICD10: I73.9 Stable, asymptomatic. [...] data. Radha Durbin PA-C documented in this encounterCherrington Hospital11-20-2023 Miscellaneous Notes* Telephone Encounter - Naty [...] notify patient. 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 His daughter saw it today. Pruritis/Pain: painful the first few steps in the morning but improves with use Change: maybe less red and swollen Drainage/blister/pustule/ulceration: abrasion, has never bled or drained, no fevers/chills/body aches Treatment: bandar ob PAST MEDICAL HISTORY Diagnosis Date Acute gastritis [...] signs. Jair Marvin MD documented in this encounterCherrington Hospital10-23-2023 Miscellaneous Notes* Telephone Encounter - Shirley [...] Thanks, Chaz Durbin PA-C documented in this encounterCherrington Hospital10-14-2023 Miscellaneous Notes* Telephone Encounter - Tracy [...] Thanks, Chaz Durbin PA-C documented in this encounterCherrington Hospital10-13-2023 Miscellaneous Notes* Telephone Encounter - Radha Durbin PA-C - 05/11/2023 4:54 PM EDT See other TE Gary, Chaz Durbin PA-C * Telephone Encounter - Whit Sheridan RN - 05/11/2023 2:30 PM EDT Pt's daughter Pili asking Chaz Durbin to advise on pt's recent CT scan results, when able. Thank you. documented in this encounterCherrington Hospital10-13-2023 History of Present illness Narrative* Krissy [...] 2023 TIME: 4:07 PM documented in this encounterCherrington Hospital07-13-2023 Instructions* Patient Instructions* Radha Durbin PA-C - 02/08/2023 10:02 AM EDT Ice/ moist heat, lineaments, OTC analgesics as needed. Stretching and posture reviewed. See handout on piriformis stretching. documented in this encounterCherrington Hospital07-13-2023 History of Present illness Narrative* Radha [...] lipoma performed by Dr. Robe Mackenzie at [facility] OPN/PRQ FEM/POP W/STNT/ANGIOP SM VSL [...] Chronic Blood Loss Coronary Artery Disease Involving Nenana Coronary Artery of Nenana Heart S/P Primary Angioplasty With Coronary Stent [...] or gallop. No lifts, heaves, or rubs. 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 documented in this encounterCherrington Hospital07-05-2023 History of Present illness Narrative* Rebekah Salazar PA-C - 01/31/2023 1:38 PM EDT This note was created using [employer]. Subjective Clark Lyles is a 87 year [...] lipoma performed by Dr. Robe Mackenzie at [facility] OPN/PRQ FEM/POP W/STNT/ANGIOP SM VSL [...] AP/LAT/L5-S1 Rebekah Salazar PA-C documented in this encounterCherrington Hospital07-05-2023 History of Present illness Narrative* Yeimi [...] 31, 2023 11:04 AM documented in this encounterCherrington Hospital06-16-2023 Miscellaneous Notes* Telephone Encounter - Юлия [...] you. Юлия Deng LPN documented in this encounterCherrington Hospital05-04-2023 Miscellaneous Notes* Telephone Encounter - Whit Sheridan RN - 11/30/2022 10:38 AM EDT Images from the original note were not included. Patient's daughter Pili Payne, notified. ZACKARY Vines PA-C 11/30/2022 9:01 AM EDT Please let him know labs all look good. Thanks, Chaz Durbin PA-C documented in this encounterCherrington Hospital05-01-2023 Instructions* Patient Instructions* Radha Durbin PA-C [...] Last Reviewed Date 2019-11-20 documented in this encounterCherrington Hospital05-01-2023 History of Present illness Narrative* Radha [...] Angina pectoris (hcc) Cardiovascular interval hx: Sees [facility] cardiology 02/27/2022 exercise myocardial perfusion stress test [...] to suggest ischemia. 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 [...] current. In past notes: Yes: occurs in episcopalian, sudden feeling of lightheadedness,pallor, weakness, lasts about 20 minutes. Seemed better when he went outside. Has happened 2 years ago. Father had low sugar. Doesn't eat prior to episcopalian and then goes out to [facility] after. Unexplainable fatigue No Leg swelling: No Nausea: No diaphoresis: No Heartburn: No Claudication: No Smoking: No Following Low cholesterol, high fiber diet? Yes If on statin: muscle aches? No If on statin: GI sx or diarrhea? No Additional history does a lot of mowing. 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 Lab review: [...] lipoma performed by Dr. Robe Mackenzie at [facility] OPN/PRQ FEM/POP W/STNT/ANGIOP SM VSL [...] Chronic Blood Loss Coronary Artery Disease Involving Nenana Coronary Artery of Nenana Heart S/P Primary Angioplasty With Coronary Stent [...] TABLET Radha Durbin PA-C documented in this encounterCherrington Hospital01-09-2023 Miscellaneous Notes* Telephone Encounter - Clarence [...] notify patient. Charity Zhou documented in this encounterCherrington Hospital12-09-2022 Miscellaneous Notes* Telephone Encounter - Tracy [...] Thank you. Tracy Lambert documented in this encounterCherrington Hospital09-12-2022 Miscellaneous Notes* Telephone Encounter - Mague [...] 04/10/2022 9:34 AM EDT Pharmacy verified in [facility] Patient has been identified by name [...] Tamra Radha Baez Pss documented in this encounterCherrington Hospital06-13-2022 Miscellaneous Notes* Telephone Encounter - Theresa [...] patient. Theresa Barbour Pss documented in this encounterCherrington Hospital02-10-2020 Evaluation note* Diagnosis Onset Date Resolution Status Essential (primary) hypertension chronic Hyperlipidemia chronic Peripheral vascular occlusive disease chronic History of coronary artery stent placement September 082019 resolved [facility] Work Phone: 1(396) 936-407402-01-2018 Evaluation note* Diagnosis Onset Date Resolution Status BPH (benign prostatic hyperplasia) acute History of angioplasty of peripheral vessel August, acute Hypokalemia acute Hypoxia acute Pneumonia acute SOB (shortness of breath) ac [place] Essential (primary) hypertension chronic History of coronary artery stent placement September 082019 resolved [facility] Work Phone: evaluation note* Diagnosis Gastroesophageal reflux disease, unspecified whether esophagitis present [facility]* Diagnosis Benign prostatic hyperplasia with nocturia documented in this encounter [facility] noteNo assessment information availableWUniversity Hospitals [facility] Work Phone: evaluation note* Diagnosis S/P primary angioplasty with coronary stent Postsurgical percutaneous transluminal coronary angioplasty status PAD (peripheral artery disease) (HCC) Peripheral vascular disease, unspecified Hyperlipidemia LDL goal <100 Other and unspecified hyperlipidemia Anxiety state Anxiety state, unspecified Essential hypertension, benign Benign prostatic hyperplasia with nocturia documented in this encounter [facility] note* Diagnosis S/P primary angioplasty with [...] insomnia Insomnia, unspecified documented in this encounter [facility]* Diagnosis Gastroesophageal reflux disease, unspecified whether esophagitis present Anxiety state Anxiety state, unspecified Chronic insomnia Insomnia, unspecified documented in this encounter [facility] note* Diagnosis Back pain of lumbar region with sciatica- Primary documented in this encounter [facility]* Diagnosis Piriformis syndrome, left- Primary Somatic dysfunction of left sacroiliac joint documented in this encounter [facility]* Diagnosis Abrasion of anterior right lower leg, initial encounter- Primary [facility] Diagnosis Atherosclerosis of aorta (HCC) Atherosclerosis of aorta documented in this encounter [facility]* Diagnosis Anxiety state Anxiety state, unspecified Chronic insomnia Insomnia, unspecified documented in this encounter [facility]* Diagnosis 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 S/P primary [...] disorder, mild, abuse documented in this encounter [facility]* Diagnosis Benign prostatic hyperplasia with nocturia S/P primary angioplasty with coronary stent Postsurgical percutaneous transluminal coronary angioplasty status documented in this encounter [facility]* Diagnosis Left sided abdominal pain- Primary Abdominal pain, unspecified site Essential hypertension, benign documented in this encounter [facility]* Diagnosis S/P primary angioplasty with coronary stent Postsurgical percutaneous transluminal coronary angioplasty status PAD (peripheral artery disease) (HCC) Peripheral vascular disease, unspecified documented in this encounter [facility]* Diagnosis S/P primary angioplasty with coronary stent Postsurgical percutaneous transluminal coronary angioplasty status PAD (peripheral artery disease) (HCC) Peripheral vascular disease, unspecified Hyperlipidemia LDL goal <100 Other and unspecified hyperlipidemia Anxiety state Anxiety state, unspecified Benign prostatic hyperplasia with nocturia Essential hypertension, benign Left sided abdominal pain Abdominal pain, unspecified site documented in this encounter [facility]* Diagnosis Back pain of lumbar region with sciatica documented in this encounter [facility]* Diagnosis Essential hypertension, benign documented in this encounter [facility]* Diagnosis Chronic insomnia- Primary Insomnia, unspecified Benign prostatic hyperplasia with nocturia Screening for depression Hyperlipidemia LDL goal <100 Other and unspecified hyperlipidemia Essential hypertension, benign Parkinson's disease without dyskinesia, unspecified whether manifestations fluctuate (HCC) 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 Acute respiratory failure with hypoxia (HCC) Acute respiratory failure documented in this encounter [facility]* Diagnosis 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 Chronic obstructive pulmonary disease with acute lower respiratory infection (HCC) Obstructive chronic bronchitis with exacerbation documented in this encounter [facility] Work Phone: Reason for referral (narrative)* Diagnostic Procedure Only (Urgent) - Closed Specialty Diagnoses / Procedures Referred By Contac t Referred To Contact XR IMAGING Diagnoses Back pain of lumbar region with sciatica Procedures XR LUMBAR GENERAL 3V AP/LAT/L5-S1 RADEX SPINE LUMBOSACRAL 2/3 VIEWS Rebekah Salazar PA-C [address] [place] [address] Xr Imaging Referral ID Status Reason Start Date Expiration Date V isits Requested Visits Authorized [id number] Closed Auto-Generate d Referral 01/31/2023 03/01/2024 1 1 [facility] for referral (narrative)* Diagnostic Procedure Only (Urgent) - Closed Specialty Diagnoses / Procedures Referred By Contac t Referred To Contact XR IMAGING Diagnoses Back pain of lumbar region with sciatica Procedures XR LUMBAR GENERAL 3V AP/LAT/L5-S1 RADEX SPINE LUMBOSACRAL 2/3 VIEWS Rebekah Salazar PA-C [address] [place] [address] [place] [address] Referral ID Status Reason Start Date Expiration Date V isits Requested Visits Authorized [id number] Closed Auto-Generate d Referral 01/31/2023 03/01/2024 1 1 [facility] for referral (narrative)No reason for referral information availableWUniversity Hospitals [facility] Work Phone: Reason for visit Narrative* Diagnostic Procedure Only (Urgent) - Closed Specialty Diagnoses / Procedures Referred By Contac t Referred To Contact XR IMAGING Diagnoses Back pain of lumbar region with sciatica Procedures XR LUMBAR GENERAL 3V AP/LAT/L5-S1 RADEX SPINE LUMBOSACRAL 2/3 VIEWS Rebekah Salazar PA-C [address] [place] [address] [place] [address] Referral ID Status Reason Start Date Expiration Date V isits Requested Visits Authorized [id number] Closed Auto-Generate d Referral 01/31/2023 03/01/2024 1 1 [facility] Chief Complaint and Reason for Visit [...] 16, 2024 12:57pm Chief Complaint Admit Date [facility] October 16, 2024 12: 57pm stroke [...] Will No September 18 11:19am Power of Lead Applier No September 18, 2021 11:19am Advance Directive Response Recorded Date/ Time Advance Directives Yes August 8:34am Living Will No June 21 9:59pm Power of Lead Applier No June 21, 2022 9:59pm Advance Directive Response Recorded Date/ Time Advance Directives Yes August 8:34am Living Will Yes August 01 1:05pm Power of Lead Applier Yes August 01 1:05pm Name of Medical Power of Lead Applier nick payne, daughter and quincy lyles, son August 01, 2023 1:05pm Advance Directive Response Recorded Date/ Time Name of Medical Power of Lead Applier nick payne, daughter and quincy lyles, son August 01, 2023 5:46pm Advance Directives Yes August 8:34am Living Will Yes August 01 5:46pm Power of Lead Applier Yes August 01 5:46pm Advance Directive Response Recorded Date/ Time Living Will Yes September 07 3:15pm Do you have a Healthcare Power of Lead Applier? Yes September 07, 2024 3:15pm Name of Medical Power of Lead Applier quincy September 07, 2024 3:15pm Advance Directives Yes August 9:34am Advance Directive Response Recorded Date/ Time Do you have a Healthcare Power of Lead Applier? Yes February 08, 2025 8:08pm Advance Directives Yes August 9:34am Reason for Referral Specialty Diagnoses / Procedures Referred By Armando jorgensen Referred To Contact CT IMAGING Diagnoses Atherosclerosis of aorta (HCC) Procedures CTA ABD/PEL W IVCON CT ANGIO ABD&PLVIS CNTRST MTRL W/WO CNTRST Radha oBb PA-C [address] [place] [address] [place] [id number] Referral ID Status Reason Start Date Expiration Date V isits Requested Visits Authorized [id number] Closed Auto-Generate d Referral 04/30/2023 07/29/2023 1 1 Specialty Diagnoses / Procedures Referred By Armando jorgensen Referred To Contact Neurology Diagnoses Parkinson's disease without dyskinesia, with fluctuating manifestations (HCC) Procedures CONSULT TO NEUROLOGY OFFICE/OUTPATIENT [facility] 60 MINUTES Radha Durbin PA-C [address] [place] [address] Referral ID Status Reason Start Date Expiration Date Visits Requested Visits Authorized [id number] Authorized PCP Requested Referral 12/25/2023 12/24/2024 1 1 Summary Purpose Additional Source Comments Source Comments (unrecognize d section and content) In the event this informatio n is protected by the Federal Confidentiality of Alcohol and Drug Abuse Patient Records regulations: The Federal rules restrict any use of the information to criminally investigate or prosecute any alcohol or drug abuse patient.[facility] the event this information is protected by the Federal Confidentiality of Alcohol and Drug Abuse Patient Records regulations: The Federal rules restrict any use of the information to criminally investigate or prosecute any alcohol or drug abuse patient.[facility]In the event this information is protected by the Federal Confidentiality of Alcohol and Drug Abuse Patient Records regulations: The Federal rules restrict any use of the information to criminally investigate or prosecute any alcohol or drug abuse patient.[facility]In the event this information is protected by the Federal Confidentiality of Alcohol and Drug Abuse Patient Records regulations: The Federal rules restrict any use of the information to criminally investigate or prosecute any alcohol or drug abuse patient.[facility]In the event this information is protected by the Federal Confidentiality of Alcohol and Drug Abuse Patient Records regulations: The Federal rules restrict any use of the information to criminally investigate or prosecute any alcohol or drug abuse patient.[facility]In the event this information is protected by the Federal Confidentiality of Alcohol and Drug Abuse Patient Records regulations: The Federal rules restrict any use of the information to criminally investigate or prosecute any alcohol or drug abuse patient.[facility]In the event this information is protected by the Federal Confidentiality of Alcohol and Drug Abuse Patient Records regulations: The Federal rules restrict any use of the information to criminally investigate or prosecute any alcohol or drug abuse patient.[facility]In the event this information is protected by the Federal Confidentiality of Alcohol and Drug Abuse Patient Records regulations: The Federal rules restrict any use of the information to criminally investigate or prosecute any alcohol or drug abuse patient.[facility] HospitalIn the event this information is protected by the Federal Confidentiality of Alcohol and Drug Abuse Patient Records regulations: The Federal rules restrict any use of the information to criminally investigate or prosecute any alcohol or drug abuse patient.[facility] HospitalIn the event this information is protected by the Federal Confidentiality of Alcohol and Drug Abuse Patient Records regulations: The Federal rules restrict any use of the information to criminally investigate or prosecute any alcohol or drug abuse patient.[facility] HospitalIn the event this information is protected by the Federal Confidentiality of Alcohol and Drug Abuse Patient Records regulations: The Federal rules restrict any use of the information to criminally investigate or prosecute any alcohol or drug abuse patient.[facility] HospitalIn the event this information is protected by the Federal Confidentiality of Alcohol and Drug Abuse Patient Records regulations: The Federal rules restrict any use of the information to criminally investigate or prosecute any alcohol or drug abuse patient.[facility] HospitalIn the event this information is protected by the Federal Confidentiality of Alcohol and Drug Abuse Patient Records regulations: The Federal rules restrict any use of the information to criminally investigate or prosecute any alcohol or drug abuse patient.[facility] HospitalIn the event this information is protected by the Federal Confidentiality of Alcohol and Drug Abuse Patient Records regulations: The Federal rules restrict any use of the information to criminally investigate or prosecute any alcohol or drug abuse patient.[facility] HospitalIn the event this information is protected by the Federal Confidentiality of Alcohol and Drug Abuse Patient Records regulations: The Federal rules restrict any use of the information to criminally investigate or prosecute any alcohol or drug abuse patient.[facility] HospitalIn the event this information is protected by the Federal Confidentiality of Alcohol and Drug Abuse Patient Records regulations: The Federal rules restrict any use of the information to criminally investigate or prosecute any alcohol or drug abuse patient.[facility] HospitalIn the event this information is protected by the Federal Confidentiality of Alcohol and Drug Abuse Patient Records regulations: The Federal rules restrict any use of the information to criminally investigate or prosecute any alcohol or drug abuse patient.[facility] HospitalIn the event this information is protected by the Federal Confidentiality of Alcohol and Drug Abuse Patient Records regulations: The Federal rules restrict any use of the information to criminally investigate or prosecute any alcohol or drug abuse patient.[facility] HospitalIn the event this information is protected by the Federal Confidentiality of Alcohol and Drug Abuse Patient Records regulations: The Federal rules restrict any use of the information to criminally investigate or prosecute any alcohol or drug abuse patient.[facility] HospitalIn the event this information is protected by the Federal Confidentiality of Alcohol and Drug Abuse Patient Records regulations: The Federal rules restrict any use of the information to criminally investigate or prosecute any alcohol or drug abuse patient.[facility] HospitalIn the event this information is protected by the Federal Confidentiality of Alcohol and Drug Abuse Patient Records regulations: The Federal rules restrict any use of the information to criminally investigate or prosecute any alcohol or drug abuse patient.[facility] HospitalIn the event this information is protected by the Federal Confidentiality of Alcohol and Drug Abuse Patient Records regulations: The Federal rules restrict any use of the information to criminally investigate or prosecute any alcohol or drug abuse patient.[facility] HospitalIn the event this information is protected by the Federal Confidentiality of Alcohol and Drug Abuse Patient Records regulations: The Federal rules restrict any use of the information to criminally investigate or prosecute any alcohol or drug abuse patient.[facility] HospitalIn the event this information is protected by the Federal Confidentiality of Alcohol and Drug Abuse Patient Records regulations: The Federal rules restrict any use of the information to criminally investigate or prosecute any alcohol or drug abuse patient.[facility] HospitalIn the event this information is protected by the Federal Confidentiality of Alcohol and Drug Abuse Patient Records regulations: The Federal rules restrict any use of the information to criminally investigate or prosecute any alcohol or drug abuse patient.[facility] HospitalIn the event this information is protected by the Federal Confidentiality of Alcohol and Drug Abuse Patient Records regulations: The Federal rules restrict any use of the information to criminally investigate or prosecute any alcohol or drug abuse patient.[facility] HospitalIn the event this information is protected by the Federal Confidentiality of Alcohol and Drug Abuse Patient Records regulations: The Federal rules restrict any use of the information to criminally investigate or prosecute any alcohol or drug abuse patient.[facility] HospitalIn the event this information is protected by the Federal Confidentiality of Alcohol and Drug Abuse Patient Records regulations: The Federal rules restrict any use of the information to criminally investigate or prosecute any alcohol or drug abuse patient.[facility] HospitalIn the event this information is protected by the Federal Confidentiality of Alcohol and Drug Abuse Patient Records regulations: The Federal rules restrict any use of the information to criminally investigate or prosecute any alcohol or drug abuse patient.[facility] HospitalIn the event this information is protected by the Federal Confidentiality of Alcohol and Drug Abuse Patient Records regulations: The Federal rules restrict any use of the information to criminally investigate or prosecute any alcohol or drug abuse patient.[facility] HospitalIn the event this information is protected by the Federal Confidentiality of Alcohol and Drug Abuse Patient Records regulations: The Federal rules restrict any use of the information to criminally investigate or prosecute any alcohol or drug abuse patient.[facility] HospitalIn the event this information is protected by the Federal Confidentiality of Alcohol and Drug Abuse Patient Records regulations: The Federal rules restrict any use of the information to criminally investigate or prosecute any alcohol or drug abuse patient.[facility] HospitalIn the event this information is protected by the Federal Confidentiality of Alcohol and Drug Abuse Patient Records regulations: The Federal rules restrict any use of the information to criminally investigate or prosecute any alcohol or drug abuse patient.[facility] HospitalIn the event this information is protected by the Federal Confidentiality of Alcohol and Drug Abuse Patient Records regulations: The Federal rules restrict any use of the information to criminally investigate or prosecute any alcohol or drug abuse patient.[facility] HospitalIn the event this information is protected by the Federal Confidentiality of Alcohol and Drug Abuse Patient Records regulations: The Federal rules restrict any use of the information to criminally investigate or prosecute any alcohol or drug abuse patient.[facility] HospitalIn the event this information is protected by the Federal Confidentiality of Alcohol and Drug Abuse Patient Records regulations: The Federal rules restrict any use of the information to criminally investigate or prosecute any alcohol or drug abuse patient.[facility] HospitalIn the event this information is protected by the Federal Confidentiality of Alcohol and Drug Abuse Patient Records regulations: The Federal rules restrict any use of the information to criminally investigate or prosecute any alcohol or drug abuse patient.[facility] Reason for Visit (unrecogniz ed section [...] 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 Reason Comments Radiology CT Specialty Diagnoses / Procedures Referred By Contac t Referred To Contact CT IMAGING Diagnoses Atherosclerosis of aorta (HCC) Procedures CTA ABD/PEL W IVCON CT ANGIO ABD&PLVIS CNTRST MTRL W/WO CNTRST Radha Bob PA-C [address] [place] [address] [address] [facility] [place] [address] Referral ID Status Reason Start Date Expiration Date V isits Requested Visits Authorized [id number] Closed Auto-Generate d Referral 04/30/2023 07/29/2023 1 [...] Health PT Plan of Care Reason Comments Prison Plan of Care Reason Comments Oxygen FYI-No Action Needed Reason Comments Orders patient POC Reason Comments Patient Update Reason Comments [id number] Initial Consult Care Teams (unrecognized sec tion and content) Press Brake Operator Relationship Specialty Start Date End Date Radha Durbin PA-C [address] [place] [address] PCP - General Family Practice 09/20/21 Press Brake Operator Relationship Specialty Start Date End Date Radha Durbin PA-C [address] [place], [place] [address] PCP - General Family Medicine 09/20/21 Press Brake Operator Relationship Specialty Start Date End Date Radha Durbin PA-C [address] [place], [place] [address] PCP - General Family Medicine 09/20/21 Press Brake Operator Relationship Specialty Start Date End Date Radha Durbin PA-C [address] [facility] [place] [address] PCP - General Family Medicine 09/20/21 Press Brake Operator Relationship Specialty Start Date End Date Radha Durbin PA-C [address] [facility] [place] [address] PCP - General Family Medicine 09/20/21 Press Brake Operator Relationship Specialty Start Date End Date Radha Durbin PA-C [address] [facility] [place] [address] PCP - General Family Medicine 09/20/21 Press Brake Operator Relationship Specialty Start Date End Date Radha Durbin PA-C [address] [facility] [place] [address] PCP - General Family Medicine 09/20/21 Press Brake Operator Relationship Specialty Start Date End Date Radha Durbin PA-C [address] [facility] [place] [address] PCP - General Family Medicine 09/20/21 Press Brake Operator Relationship Specialty Start Date End Date Radha Durbin PA-C [address] [facility] [place] [address] PCP - General Family Medicine 09/20/21 Press Brake Operator Relationship Specialty Start Date End Date Radha Durbin PA-C [address] [facility] [place] [address] PCP - General Family Medicine 09/20/21 Press Brake Operator Relationship Specialty Start Date End Date Radha Durbin PA-C [address] [facility] [place] [address] PCP - General Family Medicine 09/20/21 Press Brake Operator Relationship Specialty Start Date End Date Radha Durbin PA-C [address] [place], [place] [address] PCP - General Family Medicine 09/20/21 Press Brake Operator Relationship Specialty Start Date End Date Radha Durbin PA-C [address] [place], [place] [address] PCP - General Family Medicine 09/20/21 Press Brake Operator Relationship Specialty Start Date End Date Radha Durbin PA-C [address] [place], [place] [address] PCP - General Family Medicine 09/20/21 Press Brake Operator Relationship Specialty Start Date End Date Radha Durbin PA-C [address] [place] [address] PCP - General Family Medicine 09/20/21 Press Brake Operator Relationship Specialty Start Date End Date Radha Durbin PA-C [address] [place] [address] PCP - General Family Medicine 09/20/21 Team [...] Status: Inactive Member Role Status Dates CHRISTINE Bahnea Primary Care Provider Active Lewis Sutton MD Emergency Provider Active Dr. Jasmine Tan MD Admit Provider, Other Provider A ctive Dr. Jerrell Faith MD Attending Provider Active Press Brake Operator Relationship Specialty Start Date End Date Radha Durbin PA-C [address] [facility] [place] [address] PCP - General Family Medicine 09/20/21 Press Brake Operator Relationship Specialty Start Date End Date Radha Durbin PA-C [address] [facility] [place] [address] PCP - General Family Medicine 09/20/21 Press Brake Operator Relationship Specialty Start Date End Date Radha Durbin PA-C [address] [facility] [place] [address] PCP - General Family Medicine 09/20/21 Press Brake Operator Relationship Specialty Start Date End Date Radha Durbin PA-C [address] [facility] [place] [address] PCP - General Family Medicine 09/20/21 Press Brake Operator Relationship Specialty Start Date End Date Radha Durbin PA-C [address] [facility] [place] [address] PCP - General Family Medicine 09/20/21 Press Brake Operator Relationship Specialty Start Date End Date Radha Durbin PA-C [address] [facility] [place] [address] PCP - General Family Medicine 09/20/21 Press Brake Operator Relationship Specialty Start Date End Date Radha Durbin PA-C [address] [facility] [place] [address] PCP - General Family Medicine 09/20/21 Press Brake Operator Relationship Specialty Start Date End Date Radha Durbin PA-C [address] [place] [address] PCP - General Family Medicine 09/20/21 Press Brake Operator Relationship Specialty Start Date End Date Brigitte Segal, HEALTH SCIENCES PROGRAM COORDINATOR.FIELD MARKETING MANAGER [address] [place] [address] PCP - General Family Medicine 09/08/24 Yuliana Patton, HEALTH SCIENCES PROGRAM COORDINATOR.FIELD MARKETING MANAGER [address] [place] [address] [employer] Specialist Family Medicine 07/04/24 Brigitte Segal, HEALTH SCIENCES PROGRAM COORDINATOR.FIELD MARKETING MANAGER [address] [place] [address] [employer] Specialist Family Medicine 07/04/24 Press Brake Operator Relationship Specialty Start Date End Date Brigitte Segal, HEALTH SCIENCES PROGRAM COORDINATOR.FIELD MARKETING MANAGER [address] [place] [address] PCP - General Family Medicine 09/08/24 Yuliana Patton, HEALTH SCIENCES PROGRAM COORDINATOR.FIELD MARKETING MANAGER [address] [place] [address] [employer] Specialist Family Medicine 07/04/24 Brigitte Segal, HEALTH SCIENCES PROGRAM COORDINATOR.FIELD MARKETING MANAGER [address] [place] [address] [employer] Specialist Family Medicine 07/04/24 Press Brake Operator Relationship Specialty Start Date End Date Brigitte Segal, HEALTH SCIENCES PROGRAM COORDINATOR.FIELD MARKETING MANAGER [address] [place] [address] PCP - General Family Medicine 09/08/24 Yuliana Patton, HEALTH SCIENCES PROGRAM COORDINATOR.FIELD MARKETING MANAGER [address] [facility] [place] [address] [employer] [facility] 07/04/24 Brigitte Segal, HEALTH SCIENCES PROGRAM COORDINATOR.FIELD MARKETING MANAGER [address] [facility] [place] [address] [employer] [facility] 07/04/24 Press Brake Operator Relationship Specialty Start Date End Date Brigitte Segal, HEALTH SCIENCES PROGRAM COORDINATOR.FIELD MARKETING MANAGER [address] [facility] [place] [address] PCP - General Family Medicine 09/08/24 Yuliana Patton, HEALTH SCIENCES PROGRAM COORDINATOR.FIELD MARKETING MANAGER [address] [facility] [place] [address] [employer] [facility] 07/04/24 Brigitte Segal, HEALTH SCIENCES PROGRAM COORDINATOR.FIELD MARKETING MANAGER [address] [facility] [place] [address] [facility] 07/04/24 Press Brake Operator Relationship Specialty Start Date End Date Brigitte Segal, HEALTH SCIENCES PROGRAM COORDINATOR.FIELD MARKETING MANAGER [address] [facility] [place] [address] PCP - General Family Medicine 09/08/24 Yuliana Patton, HEALTH SCIENCES PROGRAM COORDINATOR.FIELD MARKETING MANAGER [address] [facility] [place] [address] [facility] Medicine 07/04/24 Brigitte Segal, HEALTH SCIENCES PROGRAM COORDINATOR.FIELD MARKETING MANAGER [address] [facility] [place] [address] [facility] 07/04/24 Press Brake Operator Relationship Specialty Start Date End Date Suppan, Brigitte A, HEALTH SCIENCES PROGRAM COORDINATOR.FIELD MARKETING MANAGER [address] [facility] [place] [address] PCP - General Family Medicine 09/08/24 Yuliana Patton, HEALTH SCIENCES PROGRAM COORDINATOR.FIELD MARKETING MANAGER [address] [facility] [place] [address] [employer] Specialist Family Medicine 07/04/24 Brigitte Segal, HEALTH SCIENCES PROGRAM COORDINATOR.FIELD MARKETING MANAGER [address] [facility] [place] [address] [employer] Specialist Family Medicine 07/04/24 Press Brake Operator Relationship Specialty Start Date End Date Brigitte Segal, HEALTH SCIENCES PROGRAM COORDINATOR.FIELD MARKETING MANAGER [address] [facility] [place] [address] PCP - General Family Medicine 09/08/24 Press Brake Operator Relationship Specialty Start Date End Date Brigitte Segal, HEALTH SCIENCES PROGRAM COORDINATOR.FIELD MARKETING MANAGER [address] [facility] [place] [address] PCP - General Family Medicine 09/08/24 Yuliana Patton, HEALTH SCIENCES PROGRAM COORDINATOR.FIELD MARKETING MANAGER [address] [facility] [place] [address] [employer] Specialist Family Medicine 07/04/24 10/20/24 Brigitte Segal, HEALTH SCIENCES PROGRAM COORDINATOR.FIELD MARKETING MANAGER [address] [facility] [place] [address] [employer] Specialist Family Medicine 07/04/24 10/20/24 Press Brake Operator Relationship Specialty Start Date End Date Brigitte Segal, HEALTH SCIENCES PROGRAM COORDINATOR.FIELD MARKETING MANAGER [address] [facility] [place] [address] PCP - General Family Medicine 09/08/24 Team Status: Active Member Role Status Dates Brigitte Suppan , PHOTO FINISH PHOTOGRAPHER Primary Care Provider Active Team Status: Inactive Member Role Status Dates Dr. Neo Tejeda DO Emergency Provider Active Start: September 07, 2024 End: September 15, 2024 Brigitte Suppan , PHOTO FINISH PHOTOGRAPHER Primary Care Provider Active Start: September 07, [...] Start: September 07, 2024 Brigittemillicent Segal , PHOTO FINISH PHOTOGRAPHER Primary Care Provider Active Start: September 07, [...] Start: September 08, 2024 Brigitte Segal , PHOTO FINISH PHOTOGRAPHER Primary Care Provider Active Start: September 08, [...] Member Role Status Dates Brigitte Segal , PHOTO FINISH PHOTOGRAPHER Primary Care Provider Active Start: September 08, 2024 Dr. Dejuan Brooks MD Attending Provider Active S tart: September 08, 2024 Team Status: Active Member Role Status Dates Dr. Neo Tejeda DO Emergency Provider Active Start: September 09, 2024 Brigitte Segal , PHOTO FINISH PHOTOGRAPHER Primary Care Provider Active Start: September 09, [...] Start: September 10, 2024 Brigitte Segal , PHOTO FINISH PHOTOGRAPHER Primary Care Provider Active Start: September 10, [...] Start: September 11, 2024 Brigitte Segal , PHOTO FINISH PHOTOGRAPHER Primary Care Provider Active Start: September 11, [...] Start: September 12, 2024 Brigitte Segal , PHOTO FINISH PHOTOGRAPHER Primary Care Provider Active Start: September 12, [...] Start: September 13, 2024 Brigitte Segal , PHOTO FINISH PHOTOGRAPHER Primary Care Provider Active Start: September 13, [...] Start: September 14, 2024 Brigitte Segal , PHOTO FINISH PHOTOGRAPHER Primary Care Provider Active Start: September 14, [...] Start: September 15, 2024 Brigitte Segal , PHOTO FINISH PHOTOGRAPHER Primary Care Provider Active Start: September 15, [...] Member Role Status Dates Brigitte Segal , PHOTO FINISH PHOTOGRAPHER Primary Care Provider Active Start: October 16, 2024 End: October 16, 2024 Brigitte Segal , PHOTO FINISH PHOTOGRAPHER Referring Provider Active Start: October 16, 2024 End: October 16, 2024 Kalyn Taylor ADVERTISING SOLICITOR, ADVERTISING SOLICITOR-C Attending Provider Active Start: October 16, 2024 End: October 16, 2024 Team Status: Active Member Role/Relationship Status Dates Brigitte Segal , PHOTO FINISH PHOTOGRAPHER Primary Care Provider Active Team Status: Inactive Member Role/Relationship Status Dates Brigitte Huynhchristine , PHOTO FINISH PHOTOGRAPHER Primary Care Provider Active Start: October 16, 2024 End: October 16, 2024 Brigitte Huynhchristine , PHOTO FINISH PHOTOGRAPHER Referring Provider Active Start: October 16, 2024 End: October 16, 2024 Kalyn Taylor ADVERTISING SOLICITOR, ADVERTISING SOLICITOR-C Attending Provider Active Start: October 16, 2024 End: October 16, 2024 Team Status: Active Member Role/Relationship Status Dates Brigittecolette Segal , PHOTO FINISH PHOTOGRAPHER Primary Care Provider Active Start: February 08, 2025 Ed Physician Provider Emergency Provider Active Start: February 08, 2025 Dr. Janice Sanford MD Attending Provider Active Start: February 08, 2025 Team Status: Active Member Role/Relationship Status Dates Brigittecolette Segal , PHOTO FINISH PHOTOGRAPHER Primary Care Provider Active Start: February 08, [...] section and content) DATE CREATED AUTHOR 10/18/2024 [facility] DATE CREATED AUTHOR AUTHOR'S ORGANIZ ATION 11/02/2024 [facility] DATE CREATED AUTHOR AUTHOR'S ORGANIZ ATION [facility] PERTAINING TO PATIENTS WHO ARE [...] BE BASED ON THE PRIMARY CLINICAL RECORDS. [facility] [employer] provides no warranty or guarantee of the accuracy or completeness of information in this document.
[2025-02-08 21:44] LABS: Troponin T High Sens 2 HR 24 ng/L (<=22)
[2025-02-08] MEDS: MELATONIN 3 MG TABLET PO (22:56)
[2025-02-09] VITALS (11 sets, daily range): BP systolic 128–142; BP diastolic 60–78; PULSE 59–82; RESP 18–20; TEMP 36.6–37.1; O2SAT 84–94; BMI 22.1
[2025-02-09] MEDS: Senna/Docusate Sodium 1 Tablet 2 TABLET PO (05:19)
[2025-02-09 06:20] LABS: Cholesterol 104 mg/dL (<=200); Low Density Lipoprotein Calc. 47 mg/dL; Triglycerides 95 mg/dL; Very Low Density Lipoprotein 19 mg/dL (5-40); cholesterol:hdl ratio screen 2.74
[2025-02-09 06:25] LABS: AST(SGOT) 24 U/L (<=37); Alanine Aminotransfer ALT/SGPT 24 U/L (<=46); Albumin, Serum 3.7 g/dL (3.4-4.8); Alkaline Phosphatase 51 U/L (40-129); Anion Gap 13 (5-15); BUN 21 mg/dL (4-19); BUN/Creat Ratio 20.4 RATIO (10-20); Calcium,Total 8.6 mg/dL (7.6-11.0); Carbon Dioxide 20.4 mmol/L (21.0-32.0); Chloride 109 mmol/L (98-108); Estimated Creatinine Clearance 50.10 ml/min (50-250); Globulin 1.6 g/dL (2.2-4.2); Glucose 79 mg/dL (70-99); Potassium 3.3 mmol/L (3.3-5.1)
[2025-02-09] MEDS: Thiamine Hydrochloride 100 MG Tablet PO (08:26)
[2025-02-09 08:52] LABS: Hematocrit 39.6 % (40-54); Hemoglobin 14.1 g/dL (13.0-16.5); Mean Corp Hgb Conc 35.6 g/dL (32-36); Mean Corpuscular Volume 88.6 fL (80-94); Red Blood Count 4.47 M/mm3 (4.6-6.2); White Blood Count 9.6 K/mm3 (4.4-11.0)
[2025-02-09 08:53] LABS: Immature Granulocytes Count 0.090 X10^3/uL (0.0-0.0); Mean Platelet Vol. 11.9 fl (6.2-12.0); Platelet Count 167 K/mm3 (150-450); RBC Distribution Width CV 14.7 % (11.6-14.6); RBC Distribution Width SD 46.6 fl (35.1-43.9)
--- NOTE | 2025-02-09 10:20 | MRI_ITS ---
PROCEDURE: BRAIN W/WO CONTRAST 02/09/2025 REASON FOR EXAM: CVA, POSSIBLE BRAIN MET TECHNIQUE: BRAIN W/WO CONTRAST Multiplanar and multisequence images were obtained. CONTRAST: Clariscan VOLUME: 14 mL COMPARISON: CT head without contrast, 09/07/2024. CTA head and neck, 09/07/2024. FINDINGS: There is mild diffuse cerebral atrophy. There is moderate ventriculomegaly. There are a few punctate foci of abnormal periventricular and subcortical white matter signal consistent with chronic ischemic white matter disease. There is a normal sulcal pattern and gyral configuration. There is no evidence of acute intracranial hemorrhage or infarction. The harrison-white differentiation is well preserved. There is no evidence of restricted diffusion. The basilar cisterns are normal. There are normal flow voids demonstrated in the recognized intracranial vessels. The cerebellum and brainstem are unremarkable. The cerebellar pontine angles are normal. The craniovertebral junction is normal. The sella and suprasellar regions are normal. There is an 8 x 7 x 7 mm homogeneous lead enhancing extra-axial nodule in the right frontal region. There is no associated vasogenic edema. The orbits and retro-orbital regions are unremarkable. The nasal septum is midline. There is mild mucosal thickening of the ethmoidal air cells, the frontal sinuses in the maxillary sinuses. The mastoid air cells are clear. There is normal bone marrow signal in the skull base and calvarium. MRI/Brain W/WO Contrast IMPRESSION: 1. There are no foci of abnormal intracranial contrast enhancement or vasogeni c edema to suggest metastatic disease. 2. There is an extra-axial homogeneous lead enhancing nodule in the right fron adalberto region consistent with a meningioma. There is no associated vasogenic edema. 3. Cerebral atrophy and ventriculomegaly. There is chronic ischemic white mat ter disease. 4. Other findings as noted. Reading Location: [place] [id number]
--- NOTE | 2025-02-09 11:25 | CON.PCM.NE_ITS ---
Assessment and Plan: Neuro Assessment/Plan CLARK LYLES is a 89 M with a past medical history of Pulmonary HTN/? COPD w/ Chronic Hypoxic Respiratory Failure (4L NC at home), ? CKD stage III per GFR trending, CAD s/p PCI, PAD s/p BL LE PCI , and PD being evaluated by Teleneurology for transient confusion and dysarthria in setting of recent alcohol ingestion and elevated etOH. Exam currently patient with intermittently variable attention, intermittent dysarthria. Patient has a history of PD not clearly noted but is not on medication d/t side effects. Based on the elevated BAL, his constellation of symptoms, and the normal imaging, symptoms likely represent a metabolic or infectious process rather than a cerebrovascular event. Plan: - UA - if above is normal, symptoms more consistent with intoxication from alcohol I personally attended this patient and spent a total time of 45 minutes evaluating this patient including clinical assessment, review of chart, medical history imaging, and determining appropriate treatment and workup. HPI Consult Data Date of Consult: 02/10/25 HPI Narrative HPI Narrative: The patient is an 89 y/o M w/ PMHx: Pulmonary HTN/? COPD w/ Chronic Hypoxic Respiratory Failure (4L NC at home), ? CKD stage III per GFR trending, CAD s/p PCI, PAD s/p BL LE PCI with single stent in each LE per family report, HTN, HLD, Former tobacco use who presents to [facility] ED on 02/10/2025 with history of last known well at approximately 1300 on day of presentation with onset at 2:30 PM significant dysarthria although at that point was drinking whiskey but only reports taking small sips not normally drinking per family report or at least they do not witness him routinely drinking and given his significant dysarthria/altered speech as well as confusion prompted ED evaluation. In the ED initial NIH stroke scale assessment per neurology noted to be 1 for mild to moderate dysarthria. Family does report that when he was found and initially noted to be confused it was when he was getting up from a nap specifically. When family was bringing him in to the hospital to attempt to be evaluated he was very weak and slid to the floor but there was no trauma or loss of consciousness. Workup in the ED included T98, heart rate 58, BP 118/65, respiratory rate 19, 90% on 6 L nasal cannula with most recent repeat vitals heart rate 59, BP 119/61, respiratory rate 20, 91% on 6 L nasal cannula, CBC with WC 10.1, he 116.3, platelet 200 with increased immature granulocytes, unremarkable coags, BMP with come DexPak 20, anion gap 18, BUN/creat 23/1.39, GFR 52, glucose 102, troponin initial 29, ethyl alcohol pending upon evaluation, CT of the head with no acute intracranial findings, CTA head and neck with no hemodynamically significant narrowing or large vessel occlusion in the head or neck, solid pulmonary nodule right upper lobe measuring 1.4 cm with extensive lymphadenopathy throughout the visualized upper mediastinum, right frontal lobe extra-axial focus of enhancement up to 8 mm possibly meningioma however unable to rule out metastatic lesion, CT cervical spine with no acute osseous finding of the cervical spine, EKG with sinus rhythm with no acute evidence of ischemia. Patient was a stroke alert evaluation and was deemed not a candidate for tenecteplase. Neurologic History Patient states he feels ok now except his neck hurts. Patient seems confused and does not remember anything. Patient was doing fine yesterday at 1pm and was fine. He was waking up from a nap and was struggling to get up out of the chair and slid to the floor. He seemed confused and slurring at that time. This was after eating and having some bourbon. It is normal to be taking a nap in the middle of the day. Per family, he is still a little confused but is improved. Denies ever having a stroke before, or anything like this happening before. Patient does not remember much of yesterday. Denies any headache or pain anywhere. Has fallen, last fall was in aug, does not walk with walker or cane. Does not exercise. Still mows the lawn with a riding mower. Was dx with PD Neurologic Exam: hypomimia present -? NEURO: -? Mental Status: The patient was alert and oriented to time, place, and person. Normal recent/remote memory, concentration, and general fund of knowledge. -? Language: speech is slightly slurred.? Naming, repetition, fluency, and comprehension intact. -? Cranial Nerves: PERRL 3 mm/brisk. EOMI, visual pena full, R nasolabial fold flattening, facial sensation intact, hearing intact, tongue midline, no evidence of atrophy or fibrillations. R eye ptosis -? Motor: normal bulk, tone, and strength throughout. No pronator drift or satelliting. Upper and lower extremities equal bilaterally. -? Detailed strength exam as performed by the nurse/STEPHEN and witnessed by the physician: l R L SA 5 5 EE EF 5 5 WE WF Hotel Engineer 5 5 HF KE KF 5 5 DF 5 5 PF -? Tone: is normal and bulk is normal - RUE resting tremor -? Sensation- Intact to light touch bilaterally -? Coordination: No dysmetria on [id number], finger follow finger or [id number]. -? Gait- deferred [facility] Medical History (Updated 02/09/25 @ 17:[address] Alexy Vidal, DO) COPD (chronic obstructive pulmonary disease) Chronic hypoxic respiratory failure, on home oxygen therapy Pulmonary hypertension COVID-19 virus detected (08/23/20) Anxiety and depression Chronic anemia Pneumonia due to COVID-19 virus GI bleed (12/2019) Atherosclerosis of coronary artery of [place] without angina pectoris Peripheral vascular occlusive disease Hyperlipidemia Essential (primary) hypertension GERD (gastroesophageal reflux disease) BPH (benign prostatic hyperplasia) Incontinence Diverticulosis Home Medications ?Medication ?Instructions ?Recorded ?Last Taken ?Type citalopram 20 mg tablet 20 mg PO DAILY DEPRESSION 02/08/25 History multivitamin 1 ea PO DAILY HEALTH [place] CE 05/16/17 02/08/25 History tamsulosin 0.4 mg capsule 0.8 mg PO DAILY PROSTATE 01/1602/08/25 History ascorbic acid (vitamin C) 1,000 mg 250 mg PO DAILY SUP PLEMENT 01/18/20 02/08/25 History tablet atorvastatin 10 mg tablet 10 mg PO DAILY CHOLESTEROL 0 08/25/20 02/08/25 History clopidogrel 75 mg tablet 75 mg PO DAILY BLOOD THINNER 08/25/20 02/08/25 History finasteride 5 mg tablet 5 mg PO DAILY PROSTATE 08/2602/08/25 History metoprolol succinate 25 mg 25 mg PO DAILY BLOOD PRESSU RE 08/01/23 02/08/25 History tablet,extended release 24 hr Lactobacillus acidophilus 1 1,000 mmu cells PO DAILY # 30 caps 08/04/23 02/08/25 Rx billion cell capsule hydrochlorothiazide 25 mg tablet 12.5 mg PO DAILY BLOO D PRESSURE 09/07/24 02/08/25 History pantoprazole 40 mg tablet,delayed 40 mg PO DAILY gerd 09/07/24 02/08/25 History release amlodipine 5 mg tablet 10 mg (2 x 5 mg) PO DAILY bp 30 09/15/24 02/08/25 Rx days #0 tabs mirtazapine 7.5 mg tablet 7.5 mg PO QHS PRN PRN insomn ia 02/08/25 Unknown History saw palmetto 450 mg capsule 450 mg PO DAILY prostate 0 02/08/25 02/08/25 History Allergy/AdvReac Type Severity Reaction Status Date / Time Sulfa (Sulfonamide Allergy Rash Verified 02/08/25 18:40 Antibiotics) lisinopril AdvReac Other Verified 02/08/25 18:40 Family History Father CVA (cerebral vascular accident) Mother CVA (cerebral vascular accident) Hypertension Surgical History History of colonoscopy (12/2019) History of coronary artery stent placement (09/08/19) History of angioplasty of peripheral vessel (08/2017) History of herniorrhaphy History of esophagogastroduodenoscopy (EGD) (12/2019) Social History household members: none housing: house Smoking Status: Former smoker how long ago did patient quit smoking: Quit 1999, smoked heavy pipe since youth until quit, occasional cigarette. alcohol intake: current alcohol intake frequency: a few times a week Alcohol type: hard liquor substance use type: does not use Vital Signs Vital Signs Vital Signs: 02/08/25 16:48 02/08/25 16:51 02/08/25 18:52 Temperature 98 F 98 F Temperature Source Oral Oral Pulse Rate 58 L 59 L Respiratory Rate 19 H 20 H Respiratory Effort Respiratory Depth Respiratory Pattern Blood Pressure 118/65 119/61 Blood Pressure Mean 82 80 Blood Pressure Source Blood Pressure Position Blood Pressure Location Pulse Ox 90 91 Oxygen Delivery Method Nasal Cannula Nasal Cannula Oxygen Flow Rate (L/min) 6 6 02/08/25 18:54 02/08/25 19:04 02/08/25 19:04 Temperature 98 F Temperature Source Pulse Rate 59 L 56 L Respiratory Rate 20 H 19 H Respiratory Effort Respiratory Depth Respiratory Pattern Blood Pressure 119/61 115/57 L Blood Pressure Mean 80 76 Blood Pressure Source Blood Pressure Position Blood Pressure Location Pulse Ox 91 98 98 Oxygen Delivery Method High Flow Nasal Cannula Oxygen Flow Rate (L/min) 10 10 02/08/25 19:45 02/08/25 20:00 02/08/25 20:35 Temperature 98.3 F Temperature Source Oral Pulse Rate 58 L Respiratory Rate 18 Respiratory Effort Normal Non-Labored Respiratory Depth Normal Respiratory Pattern Normal Blood Pressure 128/65 H Blood Pressure Mean 86 Blood Pressure Source Monitor Blood Pressure Position Semi-Fowlers Blood Pressure Location Right Arm Pulse Ox 93 90 Oxygen Delivery Method Nasal Cannula High Flow High Flow Oxygen Flow Rate (L/min) 10 8 8 02/08/25 23:45 02/09/25 02:00 02/09/25 03:45 Temperature 98.0 F 98.7 F Temperature Source Oral Oral Pulse Rate 62 65 Respiratory Rate 18 18 Respiratory Effort Normal Non-Labored Respiratory Depth Normal Respiratory Pattern Normal Blood Pressure 98/51 L 129/69 H Blood Pressure Mean 66 89 Blood Pressure Source Monitor Monitor Blood Pressure Position Semi-Fowlers Semi-Fowlers Blood Pressure Location Left Arm Right Arm Pulse Ox 94 92 Oxygen Delivery Method Nasal Cannula High Flow Nasal Cannula Oxygen Flow Rate (L/min) 8 8 8 02/09/25 07:07 02/09/25 07:07 02/09/25 07:45 Temperature 97.9 F Temperature Source Temporal Pulse Rate 59 L 68 Respiratory Rate 20 H 18 Respiratory Effort Respiratory Depth Respiratory Pattern Normal Blood Pressure 132/71 H Blood Pressure Mean 91 Blood Pressure Source Monitor Blood Pressure Position Semi-Fowlers Blood Pressure Location Right Arm Pulse Ox 92 93 Oxygen Delivery Method High Flow High Flow Oxygen Flow Rate (L/min) 10 10 02/09/25 09:47 Temperature Temperature Source Pulse Rate Respiratory Rate Respiratory Effort Respiratory Depth Respiratory Pattern Blood Pressure Blood Pressure Mean Blood Pressure Source Blood Pressure Position Blood Pressure Location Pulse Ox Oxygen Delivery Method High Flow Oxygen Flow Rate (L/min) 10 Weight Weight: 70.1 kg Body Mass Index (BMI) 22.1 EEG Results Procedure Details EEG Procedure Details: CLARK LYLES is a 89 year old M with a past medical history of , who presents for evaluation of Electroencephalogram on DATE at TIME Lab / Micro Data 02/09/25 04:50 02/09/25 04:50 Labs: Laboratory Results - last 24 hr 02/08/25 16:56: WBC 10.1, RBC 5.33, Hgb 16.3, Hct 47.7, MCV 89.5, MCH 30.6, MCHC 34.2, RDW Std Deviation 47.8 H, RDW Coeff of Jihan 14.8 H, Plt Count 200, MPV 11.3, Immature Gran % (Auto) 1.500 H, Neut % (Auto) 75.8 H, Lymph % (Auto) 9.9 L , Bosque % (Auto) 8.0, Eos % (Auto) 4.1, Baso % (Auto) 0.7, Absolute Neuts (auto) 7.7, Absolute Lymphs (auto) 1.00, PT 13.1, INR 1.0, APTT 26.3, Sodium 141, Potassium 3.4, Chloride 103, Carbon Dioxide 20.0 L, Anion Gap 18 H, BUN 23 H, C reatinine 1.39 H, Estim Creat Clear Calc 37.47 L, Est GFR (MDRD) Non-Af 52 L, BUN/Creatinine Ratio 16.5, Glucose 102 H, Calcium 9.5, Phosphorus 2.8, Magnesium 1.8, Troponin T High Sens 29 H 02/08/25 17:33: Ethyl Alcohol 223.0 H 02/08/25 20:39: Troponin T Hi Sens 2 Hr 24 H 02/09/25 04:50: WBC 9.6, RBC 4.47 L, Hgb 14.1, Hct 39.6 L, MCV 88.6, MCH 31.5, MCHC 35.6, RDW Std Deviation 46.6 H, RDW Coeff of Jihan 14.7 H, Plt Count 167, MPV 11.9, Immature Gran % (Auto) 0.900, Neut % (Auto) 79.4 H, Lymph % (Auto) 6.7 L, Bosque % (Auto) 8.0, Eos % (Auto) 4.7, Baso % (Auto) 0.3, Absolute Neuts (auto) 7.6, Absolute Lymphs (auto) 0.64 L, Sodium 141, Potassium 3.3, Chloride 109 H, C arbon Dioxide 20.4 L, Anion Gap 13, BUN 21 H, Creatinine 1.03, Estim Creat Clear Calc 50.10, Est GFR (MDRD) Non-Af 70, BUN/Creatinine Ratio 20.4 H, Glucose 79, Hemoglobin A1c 5.6, Calcium 8.6, Total Bilirubin 1.13, AST 24, ALT 24, Alkaline Phosphatase 51, Total Protein 5.3 L, Albumin 3.7, Globulin 1.6 L, Albumin/Globulin Ratio 2.4, Triglycerides 95, Cholesterol 104, LDL Cholesterol, Calc 47, VLDL Cholesterol 19, HDL Cholesterol 38 L, Cholesterol/HDL Ratio 2.74, TSH 3.580 Active Medications Active Medications Active Medications: Current Medications Generic Name Dose Route Start Last Admin Trade Name Freq PRN Reason Stop Dose Admin Acetaminophen 650 mg 02/08/25 19:50 02/09/25 05:19 Acetaminophen 325 Mg Tablet PO 650 mg Q4H PRN PRN Administration Fever, pain 1-10 Al Hydroxide/Mg Hydroxide 30 ml 02/08/25 19:50 Mag Hydrox/Al Hydrox/Simeth 30 Ml Udc PO Q6H PRN PRN Gastric Burning Albuterol Sulfate 2.5 mg 02/08/25 19:50 Albuterol 2.5 Mg/3 Ml Vial.Neb. INHALATION Q2H PRN PRN Dyspnea, wheezing Albuterol/Ipratropium 3 ml 02/08/25 19:50 02/09/25 07:05 Ipratropium/Albuterol Sulfate 3 Ml Ampul.Neb INHALATION 3 ml Q6HWA.RT ROSEANN Administration Aspirin 81 mg 02/09/25 08:00 02/09/25 08:26 Aspirin 81 Mg Tab.Chew PO 81 mg BREAKFAST ROSEANN Administration Atorvastatin Calcium 10 mg 02/09/25 22:00 Atorvastatin Calcium 10 Mg Tablet PO QHS ROSEANN Calamine/Phenol 1 applic 02/08/25 22:00 02/09/25 10:46 Menthol/Lanolin/Calamine/Znox 113 Gm Tube TOPICAL Not Given 4X/DAY [facility] Protocol Citalopram Hydrobromide 20 mg 02/09/25 10:00 02/09/25 08:26 Citalopram 20 Mg Tablet PO 20 mg DAILY ROSEANN Administration Clopidogrel Bisulfate 75 mg 02/09/25 10:00 02/09/25 08:26 Clopidogrel Bisulfate 75 Mg Tablet PO 75 mg DAILY ROSEANN Administration Finasteride 5 mg 02/09/25 10:00 02/09/25 08:26 Finasteride 5 Mg Tablet PO 5 mg DAILY ROSEANN Administration Folic Acid 1 mg 02/09/25 08:00 02/09/25 08:26 Folic Acid 1 Mg Tablet PO 1 mg BREAKFAST ROSEANN Administration Guaifenesin 20 ml 02/08/25 19:50 Guaifenesin 10 Ml Udc (200mg/10ml) PO Q4H PRN PRN COUGH Hydralazine HCl 5 mg 02/08/25 19:50 Hydralazine 20 Mg/Ml Vial IV 02/09/25 19:50 Q30M PRN maintain BP parameters with HR <60 Labetalol HCl 10 - 20 mg 02/08/25 19:50 Labetalol 20 Mg/4 Ml Vial IV 02/09/25 19:50 Q10M PRN PRN maintain BP parameters with HR >/=60 Lorazepam 2 mg 02/08/25 20:09 Lorazepam 2 Mg/Ml Wch Syringe IV UD PRN CIWA score >/=15. Protocol Lorazepam 2 mg 02/08/25 20:09 Lorazepam 2 Mg/Ml Wch Syringe IV Q2H PRN PRN CIWA score > 8 but <15 Protocol Lorazepam 2 mg 02/08/25 19:50 Lorazepam 1 Mg Tablet PO UD PRN CIWA score >/=15. Protocol Lorazepam 2 mg 02/08/25 19:50 Lorazepam 1 Mg Tablet PO Q2H PRN PRN CIWA score > 8 but <15 Protocol Lorazepam 0.5 mg 02/08/25 20:53 02/09/25 09:40 Lorazepam 0.5 Mg Tablet PO 0.5 mg X1 PRN Administration ANXIETY Melatonin 3 mg 02/08/25 19:50 02/08/25 22:56 Melatonin 3 Mg Tablet PO 3 mg QHS PRN PRN Administration INSOMNIA Mirtazapine 7.5 mg 02/08/25 20:58 02/08/25 21:29 Mirtazapine 15 Mg Tablet PO 7.5 mg QHS PRN PRN Administration insomnia Multivitamins/Minerals 1 tablet 02/09/25 08:00 02/09/25 08:26 Multivitamins,Ther W-Minerals Tablet PO 1 tablet BREAKFAST ROSEANN Administration Ondansetron HCl 4 mg 02/08/25 19:50 Ondansetron 4 Mg/2 Ml Vial IV Q8H PRN PRN NAUSEA/VOMITING Pantoprazole Sodium 40 mg 02/09/25 10:00 02/09/25 08:26 Pantoprazole Sodium 40 Mg Tablet PO 40 mg DAILY ROSEANN Administration Prochlorperazine Edisylate 5 mg 02/08/25 19:50 Prochlorperazine 10 Mg/2 Ml Vial IV Q4H PRN PRN Breakthrough Nausea/Vomiting Senna/Docusate Sodium 2 tablet 02/08/25 19:50 02/09/25 05:19 Senna/Docusate Sodium 1 Tablet PO 2 tablet BID PRN PRN Administration Constipation Sodium Chloride 10 - 40 ml 02/08/25 19:53 0.9% Saline Lock 10 Ml Syringe IV UD PRN SALINE FLUSH Tamsulosin HCl 0.4 mg 02/09/25 17:30 Tamsulosin Hcl 0.4 Mg Capsule PO DAILY@1730 [facility] Thiamine HCl 100 mg 02/09/25 08:00 02/09/25 08:26 Thiamine Hydrochloride 100 Mg Tablet PO 100 mg BREAKFAST ROSEANN Administration NIHSS NIHSS Nursing Documentation NIHSS Nursing Documentation: NIH Stroke Scale Start: 02/08/25 18:51 Freq: Status: Discharge Protocol: Activity Type Activity Date Activity User E-sign Co-sign Detail Recorded Client Recorded Date Recorded By Document 02/08/25 18:21 AC ... 02/08/25 18:54 AC 02/08/25 18:21 NIH Stroke Scale [NIHSS] A score of 0 is normal or asymptomatic . Total possible score is 42. Inpatient: RN or Physician to activate a stroke alert for onset of new stroke symptoms or with NIHSS increase >/= 3 points. Following change in neurological status, NIHSS will be performed per physician order or more frequently PRN. -1a. Level of Consciousness 0 - Alert; keenly responsive -1b. LOC Questions 0 - Answers BOTH questions correctly -1c. LOC Commands 0 - Performs BOTH tasks correctly -2. Best Gaze 0 - Normal -3. Visual 0 - No visual loss -4. Facial Palsy 0 - Normal symmetrical movements -5a. Left Arm 0 - No drift; arm holds 90 ( or 45) degrees for full 10 seconds -5b. Right Arm 0 - No drift; arm holds 90 ( or 45) degrees for full 10 seconds -6a. Left Leg 0 - No drift; leg holds 30- degree position for full 5 seconds -6b. Right Leg 0 - No drift; leg holds 30- degree position for full 5 seconds -7. Limb Ataxia 0 - Absent -8. Sensory 0 - Normal; no sensory loss -9. Best Language 0 - No aphasia; normal -10. Dysarthria 1 = Mild-to- moderate dysarthria; -11. Extinction and Inattention 0 - No abnormality -Total 1 Query Text:A score of 0 is normal or asymptomatic. Total possible score is 42 . ED: Notify Physician for NIHSS increase by > / = 3 points. Inpatient: RN or Physician to activate a stroke alert for NIHSS increase of > / = 3 points. NIHSS: Ischemic Stroke/TIA Start: 02/08/25 19:50 Text: For PCU Patients: NIH and Neuro Check every 4 Status: Active hours, PRN and with change in RN caregiver. Freq: [id number] Protocol: Activity Type Activity Date Activity User E-sign Co-sign Detail Recorded Client Recorded Date Recorded By Document 02/09/25 07:49 [id number] 02/09/25 07:50 DOM 02/09/25 07:49 -1a. Level of Consciousness 0 - Alert; keenly responsive -1b. LOC Questions 0 - Answers BOTH questions correctly -1c. LOC Commands 0 - Performs BOTH tasks correctly -2. Best Gaze 0 - Normal -3. Visual 0 - No visual loss -4. Facial Palsy 0 - Normal symmetrical movements -5a. Left Arm 0 - No drift; arm holds 90 ( or 45) degrees for full 10 seconds -5b. Right Arm 0 - No drift; arm holds 90 ( or 45) degrees for full 10 seconds -6a. Left Leg 0 - No drift; leg holds 30- degree position for full 5 seconds -6b. Right Leg 0 - No drift; leg holds 30- degree position for full 5 seconds -7. Limb Ataxia 0 - Absent -8. Sensory 0 - Normal; no sensory loss -9. Best Language 1 - Mild-to- moderate aphasia; -10. Dysarthria 0 - Normal -11. Extinction and Inattention 0 - No abnormality -Total 1 Query Text:A score of 0 is normal or asymptomatic. Total possible score is 42 . ED: Notify Physician for NIHSS increase by > / = 3 points. Inpatient: RN or Physician to activate a stroke alert for NIHSS increase of > / = 3 points. Coma Scale [Assess] -Eye Opening Spontaneous -Motor Obeys Commands -Verbal Oriented [Total] -Coma Scale Total 15
--- NOTE | 2025-02-09 13:00 | CASEMGMT ---
Addendum entered by Rebekah Womack 02/09/25 16:13: Social Work SW received an email back from [employer], pt's O2 order is actually 2LPM w/exertion. Rebekah GRAHAM Original Note: Social Work SW met w/pt and daughter Cathleen in the room, reviewed prior level of function and anticpiated discharge plan. PCP: Brigitte Rico Specialists: none Preferred Pharmacy: [facility] Insurance: [employer] Prescription Benefit: yes Living Will/HPOA: yes, daughter Cathleen Payne or son Bill Soriano, daughter thinks they are both on the document. SW asked daughter to bring in the documents as they are not on file. LNOK: daughter, son Living Arrangements: Patient lives alone in a single story home with 3 steps and railing to enter. Patient is independent at home with ADLS such as bathing, dressing, using bathroom. Family is doing the cooking, cleaning, yard work, bill paying, organizing medications, grocery shopping. They bring prepared food over to pt. Transportation: family DME/HHC: Patient has shower chair, raised toilet, grab bars and walker at home. He has home O2, as per pt and daughter, 4LPM continuous through [employer]. SW sent an email to [employer] to verify. Pt was set up w/[facility] after last hospital stay, they are no longer active. If HHC needed, daughter would like a referral to [facility], list of HHC agencies not needed at this time. SNF: No history. Disposition Plan: Patient to discharge home with family support, open to HHC if needed. PT/OT pending, SW will follow up once pt has had PT/OT. SW will continue to follow. GLADYS Felix
--- NOTE | 2025-02-09 13:00 | CASEMGMT ---
Addendum entered by Rebekah Womack 02/09/25 16:13: Social Work SW received an email back from [employer], pt's O2 order is actually 2LPM w/exertion. Rebekah GRAHAM Original Note: Social Work SW met w/pt and daughter Cathleen in the room, reviewed prior level of function and anticpiated discharge plan. PCP: Brigitte Rico Specialists: none Preferred Pharmacy: [facility] Insurance: [employer] Pres[employer] Benefit: yes Living Will/HPOA: yes, daughter Cathleen Payne or son Bill Soriano, daughter thinks they are both on the document. SW asked daughter to bring in the documents as they are not on file. LNOK: daughter, son Living Arrangements: Patient lives alone in a single story home with 3 steps and railing to enter. Patient is independent at home with ADLS such as bathing, dressing, using bathroom. Family is doing the cooking, cleaning, yard work, bill paying, organizing medications, grocery shopping. They bring prepared food over to pt. Transportation: family DME/HHC: Patient has shower chair, raised toilet, grab bars and walker at home. He has home O2, as per pt and daughter, 4LPM continuous through [employer]. SW sent an email to [employer] to verify. Pt was set up w/[facility] after last hospital stay, they are no longer active. If HHC needed, daughter would like a referral to [facility], list of HHC agencies not needed at this time. SNF: No history. Disposition Plan: Patient to discharge home with family support, open to HHC if needed. PT/OT pending, SW will follow up once pt has had PT/OT. SW will continue to follow. GLADYS Felix
[2025-02-09 13:01] LABS: Color, Urine Yellow (Yellow); Glucose, Dipstick Normal (Normal); Ketone-Dipstick Negative (Negative); Leukocyte Esterase-Dipstick 100 /ul (Negative); Mucous, Urine 0 SEEN /hpf (<or=2+); Nitrite-Dipstick Negative (Negative); Occult Blood-Urine 250 /ul (Negative); Protein-Dipstick 30 mg/dl (Negative); Specific Gravity, Urine 1.020 (1.002-1.030); Squamous Epithelial Cells - UA 0 SEEN /hpf (0-5); Urine Bilirubin Dipstick Negative (Negative)
--- NOTE | 2025-02-09 13:08 | CASEMGMT ---
Social Work PHQ-9 not completed as pt did not have a stroke. GLADYS Felix
--- NOTE | 2025-02-09 13:08 | CASEMGMT ---
Social Work PHQ-9 not completed as pt did not have a stroke. GLADYS Felix
[2025-02-09 13:53] LABS: Red Blood Cells-Urine 10-25 SEEN /hpf (0-5)
--- NOTE | 2025-02-09 16:09 | CASEMGMT ---
Met with patient to complete NO form. NO form and its content were verbally explained and patient's questions were answered to the best of my ability.? Patient voiced understanding and signed NO form.? Patient provided a copy of signed NO form and original placed in patient's chart.? Patient had no further questions. April Heath, Discharge Planning Asst
--- NOTE | 2025-02-09 17:18 | PCM.PN.HOSP ---
Reason for Visit Chief Complaint: Confusion, slurred speech. Subjective Subjective Patient was seen and examined today, he is alert, he has a visible tremor, according to the daughter was in the room at the time my examination he does have Parkinson's disease but refuses to take medication. Patient's oxygen requirement today has been high-he has been on as much is 8 L of oxygen at a time today, he only has 4 L written for at home. Patient is going down for a chest CT today. Teleneurology saw the patient and did not feel he had a stroke. Patient was intoxicated when he was admitted. Objective Data Objective Data Vital Signs: Vital Signs Temp Pulse Resp BP Pulse Ox O2 Del Method O2 Flow Rate 97.9 F 77 20 H 135/67 H 94 High Flow 8 02/09/25 07:45 02/09/25 15:15 02/09/25 13:33 02/09/25 15:15 02/09/25 16:32 02/09/25 16:32 02/09/25 16:32 Oxygen Flow Rate (L/min) 8 Oxygen Delivery Method High Flow Weight: 70.1 kg Body Mass Index (BMI) 22.1 Intake & Output: Intake and Output for Last 24 Hours 02/07/25 02/08/25 02/09/25 23:59 23:59 23:59 Intake Total 210 / 210 1330 / 1330 Output Total 100 / 100 800 / 800 Balance 110 / 110 530 / 530 Lab / Micro Data 02/09/25 04:50 02/09/25 04:50 Labs: Laboratory Results - last 24 hr 02/08/25 16:56: WBC 10.1, RBC 5.33, Hgb 16.3, Hct 47.7, MCV 89.5, MCH 30.6, MCHC 34.2, RDW Std Deviation 47.8 H, RDW Coeff of Jihan 14.8 H, Plt Count 200, MPV 11.3, Immature Gran % (Auto) 1.500 H, Neut % (Auto) 75.8 H, Lymph % (Auto) 9.9 L, [place] % (Auto) 8.0, Eos % (Auto) 4.1, Baso % (Auto) 0.7, Absolute Neuts (auto) 7.7, Absolute Lymphs (auto) 1.00, PT 13.1, INR 1.0, APTT 26.3, Sodium 141, Potassium 3.4, Chloride 103, Carbon Dioxide 20.0 L, Anion Gap 18 H, BUN 23 H, Creatinine 1.39 H, Estim Creat Clear Calc 37.47 L, Est GFR (MDRD) Non-Af 52 L, BUN/Creatinine Ratio 16.5, Glucose 102 H, Calcium 9.5, Phosphorus 2.8, Magnesium 1.8, Troponin T High Sens 29 H 02/08/25 17:33: Ethyl Alcohol 223.0 H 02/08/25 20:39: Troponin T Hi Sens 2 Hr 24 H 02/09/25 04:50: WBC 9.6, RBC 4.47 L, Hgb 14.1, Hct 39.6 L, MCV 88.6, MCH 31.5, MCHC 35.6, RDW Std Deviation 46.6 H, RDW Coeff of Jihan 14.7 H, Plt Count 167, MPV 11.9, Immature Gran % (Auto) 0.900, Neut % (Auto) 79.4 H, Lymph % (Auto) 6.7 L, [place] % (Auto) 8.0, Eos % (Auto) 4.7, Baso % (Auto) 0.3, Absolute Neuts (auto) 7.6, Absolute Lymphs (auto) 0.64 L, Sodium 141, Potassium 3.3, Chloride 109 H, Carbon Dioxide 20.4 L, Anion Gap 13, BUN 21 H, Creatinine 1.03, Estim Creat Clear Calc 50.10, Est GFR (MDRD) Non-Af 70, BUN/Creatinine Ratio 20.4 H, Glucose 79, Hemoglobin A1c 5.6, Calcium 8.6, Total Bilirubin 1.13, AST 24, ALT 24, Alkaline Phosphatase 51, Total Protein 5.3 L, Albumin 3.7, Globulin 1.6 L, Albumin/Globulin Ratio 2.4, Triglycerides 95, Cholesterol 104, LDL Cholesterol, Calc 47, VLDL Cholesterol 19, HDL Cholesterol 38 L, Cholesterol/HDL Ratio 2.74, TSH 3.580 02/09/25 12:50: Urine Color Yellow, Urine Clarity Sl. Cloudy, Urine pH 5.0, Ur Specific [place] 1.020, Urine Protein 30 H, Urine Glucose (UA) Normal, Urine Ketones Negative, Urine Occult Blood 250 H, Urine Nitrite Negative, Urine Bilirubin Negative, Urine Urobilinogen Normal, Ur Leukocyte Esterase 100 H, Urine RBC 10-25 SEEN, Urine WBC 5-10 SEEN, Ur Squamous Epith Cells 0 SEEN, Urine Bacteria 1+, Urine Mucus 0 SEEN Radiography Diagnostic Testing: Radiology Impression Brain MRI 02/09/25 10:20 IMPRESSION: 1. There are no foci of abnormal intracranial contrast enhancement or vasogenic edema to suggest metastatic disease. 2. There is an extra-axial homogeneous lead enhancing nodule in the right frontal region consistent with a meningioma. There is no associated vasogenic edema. 3. Cerebral atrophy and ventriculomegaly. There is chronic ischemic white matter disease. 4. Other findings as noted. Reading Location: [place] [id number] Physical Exam Const alert and no apparent distress Constitutional Narrative: Patient is a poor informant General Appearance: cooperative, well kempt and well developed Orientation / Consciousness: awake, oriented to person and oriented to place HEENT normocephalic, head/scalp atraumatic and moist oral mucous membranes Eyes PERRL, EOMs intact bilaterally and conjunctivae normal Neck supple, no JVD, thyroid normal and no carotid bruits General: trachea midline Resp normal respiratory effort, no retractions and no use of accessory muscles Resp Narrative: Decreased breath sounds bilaterally Auscultation: Negative for rales, rhonchi or wheezes Cardio regular rate, regular rhythm, S1 normal heart sound, S2 normal heart sound, no murmurs, no rub and no gallops GI normal to inspection, nondistended, normoactive bowel sounds, soft to palpation, non-tender and non-distended Extremity no clubbing, cyanosis or edema Skin no rashes or lesions noted General Skin Exam: no breakdown Neuro oriented x3, CN's II-XII intact bilaterally, moves all extremities, no focal motor deficits and no sensory deficits noted Sensorium / Orientation: awake, alert, oriented to person and oriented to place Speech: speech normal Psych affect normal Assessment & Plan Assessment/Plan (1) COPD (chronic obstructive pulmonary disease): QUALIFIERS: COPD type: chronic bronchitis Chronic bronchitis type: simple Qualified Code(s): J41.0 - Simple chronic bronchitis PLAN: Plan 1. Confusion and slurred speech-secondary to alcohol intoxication, patient's speech has cleared but he is a poor informant. Patient will need to remain in the hospital due to his high oxygen requirement, he is getting aerosol treatments presently, I will start him on IV Solu-Medrol. #2 chronic hypoxic respiratory failure secondary to severe COPD-pulse ox will be monitored, oxygen will be adjusted if possible #3 coronary artery disease-stable at this time #4 essential hypertension-patient will remain on his present medication #5 Parkinson's disease-patient is noncompliant with outpatient treatment Total clinical time spent by myself addressing the patient's medical issues, reviewing all of his data, and collaborating with patient's care team: 35 minutes Charges/Coding Visit Charges Inpatient E&M: 79419 Subs Hosp L2 NIHSS NIHSS Nursing Documentation NIHSS Nursing Documentation: NIH Stroke Scale Start: 02/08/25 18:51 Freq: Status: Discharge Protocol: Activity Type Activity Date Activity User E-sign Co-sign Detail Recorded Client Recorded Date Recorded By Document 02/08/25 18:21 AC ... 02/08/25 18:54 AC 02/08/25 18:21 NIH Stroke Scale [NIHSS] A score of 0 is normal or asymptomatic . Total possible score is 42. Inpatient: RN or Physician to activate a stroke alert for onset of new stroke symptoms or with NIHSS increase >/= 3 points. Following change in neurological status, NIHSS will be performed per physician order or more frequently PRN. -1a. Level of Consciousness 0 - Alert; keenly responsive -1b. LOC Questions 0 - Answers BOTH questions correctly -1c. LOC Commands 0 - Performs BOTH tasks correctly -2. Best Gaze 0 - Normal -3. Visual 0 - No visual loss -4. Facial Palsy 0 - Normal symmetrical movements -5a. Left Arm 0 - No drift; arm holds 90 ( or 45) degrees for full 10 seconds -5b. Right Arm 0 - No drift; arm holds 90 ( or 45) degrees for full 10 seconds -6a. Left Leg 0 - No drift; leg holds 30- degree position for full 5 seconds -6b. Right Leg 0 - No drift; leg holds 30- degree position for full 5 seconds -7. Limb Ataxia 0 - Absent -8. Sensory 0 - Normal; no sensory loss -9. Best Language 0 - No aphasia; normal -10. Dysarthria 1 = Mild-to- moderate dysarthria; -11. Extinction and Inattention 0 - No abnormality -Total 1 Query Text:A score of 0 is normal or asymptomatic. Total possible score is 42 . ED: Notify Physician for NIHSS increase by > / = 3 points. Inpatient: RN or Physician to activate a stroke alert for NIHSS increase of > / = 3 points.
--- NOTE | 2025-02-09 17:55 | CT_ITS ---
PROCEDURE: CHEST WITH CONTRAST 02/09/2025 REASON FOR EXAM: LUNG NODULES, CONCERN LUNG CA TECHNIQUE: CHEST WITH CONTRAST Coronal and Sagittal reconstruction series were provided. CONTRAST: 100 mL of Isovue 370 One or more dose reduction techniques were used (e.g., Automated exposure control, adjustment of the mA and/or kV according to patient size, use of iterative reconstruction technique). RADIATION DOSE SUMMARY: DLP: 316 mGycm COMPARISON: Chest CTA from 09/08/2024 FINDINGS: LUNGS AND PLEURA: Extensive pulmonary emphysema. Biapical scarring and bibasilar subsegmental atelectasis. No large focal consolidations. No suspicious lung masses. Scattered peripheral pulmonary nodules for example 4mm pulmonary nodule in the right upper lobe ( series 2, image 34), 4 mm nodule within the right upper lobe (series 2, image 49) and 6 mm nodule at the right base (series 2, image 73). Trace bibasilar pleural effusions. No pneumothorax. MEDIASTINUM: Extensive mediastinal lymphadenopathy with largest lymph node within the precarinal region measuring 2.2 x 0.8 cm. The heart shows no acute findings. Extensive coronary atherosclerosis. Mild atherosclerosis of thoracic aorta. The pulmonary trunk and branches of the vessels in the mediastinum are within normal limits. SUPRACLAVICULAR AND AXILLARY: No abnormalities seen in these regions. No mass or significant lymphadenopathy. UPPER ABDOMEN: 2.4 cm cyst within the left kidney. Hepatic steatosis. BONES AND SOFT TISSUES: The bony structures show no significant acute findings. No focal bony mass lesions noted. Moderate multilevel degenerative changes of the thoracic spine. The subcutaneous soft tissues are unremarkable. CT/Chest WITH Contrast IMPRESSION: No large focal consolidation or suspicious lung masses although multiple pulmon erasmo nodules as followinmm pulmonary nodule in the right upper lobe ( series 2, image 34), 4 mm nodule within the right upper lobe (series 2, image 49) and 7 mm nodule at the right base (series 2, image 73). Consider 3-6 month follow-up CT per Fleischne r guidelines. Extensive pulmonary emphysema. Trace bibasilar pleural effusions. Extensive m ediastinal lymphadenopathy. Reading Location: [id number]
[2025-02-09] MEDS: 0.9% Saline Lock 10 ML Syringe IV (22:17)
[2025-02-10] VITALS (24 sets, daily range): BP systolic 117–150; BP diastolic 49–89; PULSE 73–92; RESP 16–24; TEMP 36.6–37.2; O2SAT 86–97; BMI 24.2
[2025-02-10] MEDS: 0.9% Saline Lock 10 ML Syringe IV ×3 (06:03→17:00)
[2025-02-10] MEDS: hydrOXYzine PAM 25 MG Capsule 50 MG PO (17:10)
--- NOTE | 2025-02-10 17:20 | PCM.PN.HOSP ---
Reason for Visit Chief Complaint: Confusion, slurred speech. Subjective Subjective Patient was seen and examined today, at the time of this dictation, he is currently on 4 L of oxygen at rest. Objective Data Objective Data Vital Signs: Vital Signs Temp Pulse Resp BP Pulse Ox O2 Del Method O2 Flow Rate 99.0 F 77 20 H 132/70 H 93 Nasal Cannula 4 02/10/25 16:47 02/10/25 16:47 02/10/25 16:47 02/10/25 16:47 02/10/25 16:47 02/10/25 16:47 02/10/25 16:47 FiO2 60 02/10/25 10:30 Oxygen Flow Rate (L/min) 4 Oxygen Delivery Method Nasal Cannula Weight: 76.5 kg Body Mass Index (BMI) 24.2 Intake & Output: Intake and Output for Last 24 Hours 02/08/25 02/09/25 02/10/25 23:59 23:59 23:59 Intake Total 210 / 210 1680 / 1680 Output Total 100 / 100 800 / 800 500 / 500 Balance 110 / 110 880 / 880 -500 / -500 Lab / Micro Data 02/09/25 04:50 02/09/25 04:50 Radiography Diagnostic Testing: Radiology Impression Chest CT 02/09/25 17:55 IMPRESSION: No large focal consolidation or suspicious lung masses although multiple pulmonary nodules as followinmm pulmonary nodule in the right upper lobe ( series 2, image 34), 4 mm nodule within the right upper lobe (series 2, image 49) and 7 mm nodule at the right base (series 2, image 73). Consider 3-6 month follow-up CT per Fleischner guidelines. Extensive pulmonary emphysema. Trace bibasilar pleural effusions. Extensive mediastinal lymphadenopathy. Reading Location: [facility] Physical Exam Narrative alert and no apparent distress Constitutional Narrative: Patient is a poor informant General Appearance: cooperative, well kempt and well developed Orientation / Consciousness: awake, oriented to person and oriented to place HEENT normocephalic, head/scalp atraumatic and moist oral mucous membranes Eyes PERRL, EOMs intact bilaterally and conjunctivae normal Neck supple, no JVD, thyroid normal and no carotid bruits General: trachea midline Resp normal respiratory effort, no retractions and no use of accessory muscles Resp Narrative: Decreased breath sounds bilaterally Auscultation: Negative for rales, rhonchi or wheezes Cardio regular rate, regular rhythm, S1 normal heart sound, S2 normal heart sound, no murmurs, no rub and no gallops GI normal to inspection, nondistended, normoactive bowel sounds, soft to palpation, non-tender and non-distended Extremity no clubbing, cyanosis or edema Skin no rashes or lesions noted General Skin Exam: no breakdown Neuro oriented x3, CN's II-XII intact bilaterally, moves all extremities, no focal motor deficits and no sensory deficits noted Sensorium / Orientation: awake, alert, oriented to person and oriented to place Speech: speech normal Psych affect normal Assessment & Plan Assessment/Plan (1) COPD (chronic obstructive pulmonary disease): QUALIFIERS: COPD type: chronic bronchitis Chronic bronchitis type: simple Qualified Code(s): J41.0 - Simple chronic bronchitis PLAN: Plan 1. Confusion and slurred speech-secondary to alcohol intoxication, patient's speech has cleared but he is a poor informant. Patient will need a home oxygen qualification test before he is discharged, he is only on 2 L at home with exertion. Patient should be evaluated for possible discharge on 02/11/2025 #2 chronic hypoxic respiratory failure secondary to severe COPD-pulse ox will be monitored, oxygen will be adjusted if possible #3 coronary artery disease-stable at this time #4 essential hypertension-patient will remain on his present medication #5 Parkinson's disease-patient is noncompliant with outpatient treatment Total clinical time spent by myself addressing the patient's medical issues, reviewing all of his data, and collaborating with patient's care team: 35 minutes Charges/Coding Visit Charges Inpatient E&M: 57801 Subs Hosp L2 NIHSS NIHSS Nursing Documentation NIHSS Nursing Documentation: NIH Stroke Scale Start: 02/08/25 18:51 Freq: Status: Discharge Protocol: Activity Type Activity Date Activity User E-sign Co-sign Detail Recorded Client Recorded Date Recorded By Document 02/08/25 18:21 AC ... 02/08/25 18:54 AC 02/08/25 18:21 NIH Stroke Scale [NIHSS] A score of 0 is normal or asymptomatic . Total possible score is 42. Inpatient: RN or Physician to activate a stroke alert for onset of new stroke symptoms or with NIHSS increase >/= 3 points. Following change in neurological status, NIHSS will be performed per physician order or more frequently PRN. -1a. Level of Consciousness 0 - Alert; keenly responsive -1b. LOC Questions 0 - Answers BOTH questions correctly -1c. LOC Commands 0 - Performs BOTH tasks correctly -2. Best Gaze 0 - Normal -3. Visual 0 - No visual loss -4. Facial Palsy 0 - Normal symmetrical movements -5a. Left Arm 0 - No drift; arm holds 90 ( or 45) degrees for full 10 seconds -5b. Right Arm 0 - No drift; arm holds 90 ( or 45) degrees for full 10 seconds -6a. Left Leg 0 - No drift; leg holds 30- degree position for full 5 seconds -6b. Right Leg 0 - No drift; leg holds 30- degree position for full 5 seconds -7. Limb Ataxia 0 - Absent -8. Sensory 0 - Normal; no sensory loss -9. Best Language 0 - No aphasia; normal -10. Dysarthria 1 = Mild-to- moderate dysarthria; -11. Extinction and Inattention 0 - No abnormality -Total 1 Query Text:A score of 0 is normal or asymptomatic. Total possible score is 42 . ED: Notify Physician for NIHSS increase by > / = 3 points. Inpatient: RN or Physician to activate a stroke alert for NIHSS increase of > / = 3 points.
[2025-02-11] VITALS (16 sets, daily range): BP systolic 125–168; BP diastolic 70–92; PULSE 79–92; RESP 16–20; TEMP 36.3–36.7; O2SAT 88–98; BMI 24.2; BMI 22.9
--- NOTE | 2025-02-11 07:26 | PN.HOSP_ITS ---
Reason for Visit Chief Complaint: Confusion, slurred speech. Objective Data Objective Data Vital Signs: Vital Signs Temp Pulse Resp BP Pulse Ox O2 Del Method O2 Flow Rate 97.3 F L 92 18 142/80 H 93 High Flow 7 02/11/25 04:30 02/11/25 07:03 02/11/25 07:03 02/11/25 04:30 02/11/25 07:03 02/11/25 07:03 02/11/25 07:03 FiO2 60 02/10/25 10:30 Oxygen Flow Rate (L/min) 7 Oxygen Delivery Method High Flow Weight: 159 lb 13.362 oz Body Mass Index (BMI) 22.9 Intake & Output: Intake and Output for Last 24 Hours 02/09/25 02/10/25 02/11/25 23:59 23:59 23:59 Intake Total 1680 / 1680 Output Total 800 / 800 600 / 750 450 / 450 Balance 880 / 880 -600 / -750 -450 / -450 Lab / Micro Data 02/11/25 07:26 02/11/25 07:26 Physical Exam Narrative Patient is stated he moved his bowels yesterday completely. Upper abdomen looks distended. In the morning he was on 7 L of oxygen but currently 4 L of oxygen. Physical exam General: Alert, Oriented x3, Cooperative HEENT: Atraumatic, PERRLA, EOMI, Normocephalic. Oral: No Gingival or Mucosal Lesions/ Ulcerations Neck: Supple, No JVD, Negative Carotid Bruits Chest wall/Lungs: Air entry diminished in bilateral lung bases. Moderate respiratory distress mild expiratory rhonchi Cardiovascular: Regular rate and rhythm, Normal S1,S2, systolic murmur Abdomen: Bowel Sounds Present, Soft, Non Tender, upper abdominal distention. Impulse on coughing present, small ventral hernia : No dysuria. No renal angle tenderness. No suprapubic tenderness. Extremities: No edema, Capillary Refill Less than 3 Seconds Skin: No rashes, No breakdown Musculoskeletal: No Tenderness to Palpation of Joints or Extremities. Has tremors in both hands Neurological: Cranial nerves II-XII grossly intact, DTR 2+/4. No acute focal neurological deficit. Psych/Mental Status: Normal Affect, Appropriate. Assessment & Plan Assessment/Plan (1) COPD (chronic obstructive pulmonary disease): QUALIFIERS: COPD type: chronic bronchitis Chronic bronchitis type: simple Qualified Code(s): J41.0 - Simple chronic bronchitis PLAN: Plan 59-year-old gentleman was admitted for confusion, slurred speech/dysarthria but a stroke evaluation was negative. Patient was found to be intoxicated with whiskey. CT head and neck does not show hemodynamically significant stenosis or LVO. EKG no evidence of acute ischemia. 1. Confusion and slurred speech-secondary to alcohol intoxication, patient's speech has cleared but he is a poor informant. Patient will need a home oxygen qualification test before he is discharged, he is only on 2 L at home with exertion. 02/11: Acute alcohol withdrawal syndrome: Patient has flushed face, shaking with tremors. Patient still requires 4 to 7 L of oxygen. He also has tremors. He said he drinks occasionally about once a week but seems he is drinking more frequently because his answer was not straightforward. Patient on phenobarbital based order set along with other adjunctive medications gabapentin, Bentyl, Vistaril, clonidine, Klonopin as needed for alcohol withdrawal symptom control. Patient is on thiamine and folate acid. CIWA monitor. assistant clinical nurse manager [id number] consulted. #2 chronic hypoxic respiratory failure secondary to severe COPD-pulse ox will be monitored, oxygen will be adjusted if possible 02/11: Patient needs significant amount of oxygen, 7 L high flow. He was similarly 4 to 8 L of oxygen yesterday. Triple PCR for SARS-CoV-2, flu and RSV are negative #3 coronary artery disease-stable at this time #4 essential hypertension-patient is controlled. #5 Parkinson's disease-patient is noncompliant with outpatient treatment. Patient has tremors which might be due to Parkinson disease and alcohol withdrawal. Microbiology Past 72 Hours 02/11/25 07:50 Mucosa - Nose SARS-CoV-2, Influenza & RSV (PCR) - Final Laboratory Results 02/11/25 07:26: WBC 15.0 H, RBC 4.80, Hgb 14.7, Hct 42.1, MCV 87.7, MCH 30.6, MCHC 34.9, RDW Std Deviation 48.8 H, RDW Coeff of Jihan 15.3 H, Plt Count 164, MPV 12.3 H, Immature Gran % (Auto) 0.900, Neut % (Auto) 94.6 H, Lymph % (Auto) 3.2 L , Tucker % (Auto) 1.2, Eos % (Auto) 0.0, Baso % (Auto) 0.1, Absolute Neuts (auto) 14.2 H, Absolute Lymphs (auto) 0.48 L, Nucleated RBC % 0, Sodium 139, Potassium 4.0, Chloride 105, Carbon Dioxide 22.2, Anion Gap 11, BUN 20 H, Creatinine 0.98, Estim Creat Clear Calc 54.46, Est GFR (MDRD) Non-Af 74, B UN/Creatinine Ratio 20.4 H, Glucose 176 H, Calcium 9.1 Clinical Impression(s) from Imaging Studies Brain MRI 02/09/25 10:20 IMPRESSION: 1. There are no foci of abnormal intracranial contrast enhancement or vasogenic edema to suggest metastatic disease. 2. There is an extra-axial homogeneous lead enhancing nodule in the right frontal region consistent with a meningioma. There is no associated vasogenic edema. 3. Cerebral atrophy and ventriculomegaly. There is chronic ischemic white matter disease. 4. Other findings as noted. Reading Location: [place] [id number] 02/09/25 17:55 IMPRESSION: No large focal consolidation or suspicious lung masses although multiple pulmonary nodules as followinmm pulmonary nodule in the right upper lobe ( series 2, image 34), 4 mm nodule within the right upper lobe (series 2, image 49) and 7 mm nodule at the right base (series 2, image 73). Consider 3-6 month follow-up CT per Fleischner guidelines. Extensive pulmonary emphysema. Trace bibasilar pleural effusions. Extensive mediastinal lymphadenopathy. Reading Location: [id number] Charges/Coding Visit Charges Inpatient E&M: 86586 Subs Hosp L2 NIHSS NIHSS Nursing Documentation NIHSS Nursing Documentation: NIH Stroke Scale Start: 02/08/25 18:51 Freq: Status: Discharge Protocol: Activity Type Activity Date Activity User E-sign Co-sign Detail Recorded Client Recorded Date Recorded By Document 02/08/25 18:21 AC ... 02/08/25 18:54 AC 02/08/25 18:21 NIH Stroke Scale [NIHSS] A score of 0 is normal or asymptomatic . Total possible score is 42. Inpatient: RN or Physician to activate a stroke alert for onset of new stroke symptoms or with NIHSS increase >/= 3 points. Following change in neurological status, NIHSS will be performed per physician order or more frequently PRN. -1a. Level of Consciousness 0 - Alert; keenly responsive -1b. LOC Questions 0 - Answers BOTH questions correctly -1c. LOC Commands 0 - Performs BOTH tasks correctly -2. Best Gaze 0 - Normal -3. Visual 0 - No visual loss -4. Facial Palsy 0 - Normal symmetrical movements -5a. Left Arm 0 - No drift; arm holds 90 ( or 45) degrees for full 10 seconds -5b. Right Arm 0 - No drift; arm holds 90 ( or 45) degrees for full 10 seconds -6a. Left Leg 0 - No drift; leg holds 30- degree position for full 5 seconds -6b. Right Leg 0 - No drift; leg holds 30- degree position for full 5 seconds -7. Limb Ataxia 0 - Absent -8. Sensory 0 - Normal; no sensory loss -9. Best Language 0 - No aphasia; normal -10. Dysarthria 1 = Mild-to- moderate dysarthria; -11. Extinction and Inattention 0 - No abnormality -Total 1 Query Text:A score of 0 is normal or asymptomatic. Total possible score is 42 . ED: Notify Physician for NIHSS increase by > / = 3 points. Inpatient: RN or Physician to activate a stroke alert for NIHSS increase of > / = 3 points.
[2025-02-11 07:55] LABS: Hematocrit 42.1 % (40-54); Hemoglobin 14.7 g/dL (13.0-16.5); Immature Granulocytes Count 0.140 X10^3/uL (0.0-0.0); Mean Corp Hgb Conc 34.9 g/dL (32-36); Mean Corpuscular Volume 87.7 fL (80-94); Mean Platelet Vol. 12.3 fl (6.2-12.0); NRBC Flagged by Analyzer 0 % (0-5); POSITIVE DIFFERENTIAL YES; Platelet Count 164 K/mm3 (150-450); RBC Distribution Width CV 15.3 % (11.6-14.6); RBC Distribution Width SD 48.8 fl (35.1-43.9); Red Blood Count 4.80 M/mm3 (4.6-6.2); White Blood Count 15.0 K/mm3 (4.4-11.0)
--- NOTE | 2025-02-11 08:22 | RAD_ITS ---
EXAM: XR Abdomen, 1 View CLINICAL INDICATION: UPPER ABDOMINAL DISTENSION TECHNIQUE: Frontal supine view of the abdomen/pelvis. COMPARISON: No relevant prior studies available. FINDINGS: GASTROINTESTINAL TRACT: Fecal retention in the colon consistent with constipation. No dilation. BONES/JOINTS: Unremarkable. No acute fracture. RAD/Abd Inc Decub and/or Erect IMPRESSION: Fecal retention in the colon consistent with constipation. Reading Location: [facility]
--- NOTE | 2025-02-11 08:22 | RAD_ITS ---
EXAM: XR Abdomen, 1 View CLINICAL INDICATION: UPPER ABDOMINAL DISTENSION TECHNIQUE: Frontal supine view of the abdomen/pelvis. COMPARISON: No relevant prior studies available. FINDINGS: GASTROINTESTINAL TRACT: Fecal retention in the colon consistent with constipation. No dilation. BONES/JOINTS: Unremarkable. No acute fracture. RAD/Abd Inc Decub and/or Erect IMPRESSION: Fecal retention in the colon consistent with constipation. Reading Location: [facility]
[2025-02-11 08:44] LABS: Anion Gap 11 (5-15); BUN 20 mg/dL (4-19); BUN/Creat Ratio 20.4 RATIO (10-20); Calcium,Total 9.1 mg/dL (7.6-11.0); Carbon Dioxide 22.2 mmol/L (21.0-32.0); Chloride 105 mmol/L (98-108); Estimated Creatinine Clearance 54.46 ml/min (50-250); Glucose 176 mg/dL (70-99); Potassium 4.0 mmol/L (3.3-5.1)
[2025-02-11] MEDS: 0.9% Saline Lock 10 ML Syringe IV ×2 (15:38→20:50)
[2025-02-11 16:08] LABS: Prothrombin Time (Protime)PT. 14.1 SECONDS (11.7-14.9)
[2025-02-11 23:05] LABS: Barbiturate Urine NEGATIVE (< 200 ng/mL); Benzodiazepine Urine NEGATIVE (< 200 ng/mL); PCP Urine NEGATIVE (< 25 ng/mL); THC Urine NEGATIVE (< 50 ng/mL)
[2025-02-12] VITALS (7 sets, daily range): BP systolic 147–163; BP diastolic 82–92; PULSE 70–88; RESP 16–20; TEMP 35.9–36.6; O2SAT 84–96; BMI 22.3
[2025-02-12] MEDS: 0.9% Saline Lock 10 ML Syringe IV (05:47)
[2025-02-12 06:03] LABS: Hematocrit 41.1 % (40-54); Hemoglobin 14.1 g/dL (13.0-16.5); Immature Granulocytes Count 0.240 X10^3/uL (0.0-0.0); Mean Corp Hgb Conc 34.3 g/dL (32-36); Mean Corpuscular Volume 89.3 fL (80-94); Mean Platelet Vol. 11.7 fl (6.2-12.0); NRBC Flagged by Analyzer 0 % (0-5); POSITIVE DIFFERENTIAL YES; Platelet Count 151 K/mm3 (150-450); RBC Distribution Width CV 15.5 % (11.6-14.6); RBC Distribution Width SD 49.9 fl (35.1-43.9); Red Blood Count 4.60 M/mm3 (4.6-6.2); White Blood Count 16.3 K/mm3 (4.4-11.0)
[2025-02-12 06:28] LABS: Anion Gap 10 (5-15); BUN 26 mg/dL (4-19); BUN/Creat Ratio 29.2 RATIO (10-20); Calcium,Total 9.1 mg/dL (7.6-11.0); Carbon Dioxide 22.8 mmol/L (21.0-32.0); Chloride 107 mmol/L (98-108); Estimated Creatinine Clearance 58.97 ml/min (50-250); Glucose 157 mg/dL (70-99); Potassium 4.6 mmol/L (3.3-5.1)
--- NOTE | 2025-02-12 08:47 | DCINST_ITS ---
Discharge Instructions DC O2, CPAP, BIPAP needs Home O2 Discharge instructions: Yes Type of respiratory needs?: Oxygen Oxygen frequency: Continuous Continuous oxygen liters per minute: 4 Dressing / Incision Discharge Activity: Return to Normal Activity Weight Bearing Status: Weight bearing as tolerated Dressing / Incision Call your doctor if you observe: Fever of 101 or Higher, Coldness, Increased Nah[place] n, Numbness or Tingling, Change in Color, Inability to urinate, Inability to have a bowel movement, Shortness of breath, Dizziness, Fainting spells, Swelling in the ankles, Chest pain, Prolonged hiccupping, Increased palpitations (irregular heartbeat) and Calf discomfort Follow Up Care When: IN 2 WEEKS Test Results: Test results from this visit will be discussed in further detail at your follow- up appointment, if applicable. Discharge Plan Admission Admit Date/Time: 02/10/25 12:18 Attending Provider: John Soliz Primary Care Provider: Brigitte Rico Consulting Providers: Richard Boob; Bella Caldera; Nayla Nathan; Brittany Mtz; Yin Villalba; Archie Perkins; Bianka Milian; Panchito Turner; Jatin Velazquez; Richard Olivares; Elisha Booker; Yvan Santacruz; Maddy Lind; Sincere Olivera; Sharla Sahni; Maulik Eng; Alessandra Tucker; Uri Martinez; Tere Liriano; Tree Madrid; Janice Sanford; Alexy Vidal Discharge Orders/Prescriptions Prescriptions: New prednisone 10 mg tablet 10 mg PO DAILY Qty: 30 0RF Rx Instructions: 40 mg for 3 days 30 mg for 3 days, 20 mg for 3 days,and 10 mg for 3 days Continued tamsulosin 0.4 mg capsule 0.8 mg PO DAILY citalopram 20 MG tablet 20 mg PO DAILY multivitamin 1 EACH tablet 1 ea PO DAILY ascorbic acid (vitamin C) 1,000 MG tablet 250 mg PO DAILY atorvastatin 10 MG tablet 10 mg PO DAILY clopidogrel 75 MG tablet 75 mg PO DAILY finasteride 5 MG tablet 5 mg PO DAILY metoprolol succinate 25 mg tablet extended release 24 hr 25 mg PO DAILY Lactobacillus acidophilus 1 billion cell capsule 1,000 mmu cells PO DAILY Qty: 30 0RF pantoprazole 40 mg tablet,delayed release (DR/EC) 40 mg PO DAILY hydrochlorothiazide 25 mg tablet 12.5 mg PO DAILY amlodipine 5 mg tablet 10 mg PO DAILY 30 Days Qty: 0 0RF saw palmetto 450 mg capsule 450 mg PO DAILY mirtazapine 7.5 mg tablet 7.5 mg PO QHS PRN PRN (Reason: insomnia) Referrals / Follow Up: Brigitte Rico CNS [Primary Care Provider] - Jim Deng MD [Non-Staff -Ordering Privileges] - Within 1 Month (For evaluation of Parkinson disease) Disposition Disposition (needs filled in before D/C Order can be placed): Home, Self Care
--- NOTE | 2025-02-12 08:53 | PCM.DC.SUM ---
Providers Date of Admission: 02/10/25 Date of Discharge: 02/12/25 Primary Care Physician: Brigitte Rico, CARDIAC CATH TECH Consultations 02/08/25 19:50 Consult: Tele-Neurology Routine Consulting Provider: [facility] Reason for Consult: Acute Ischemic Stroke/TIA EMERGENT Consult: No MD Notified: Yes Date Notified: 02/08/25 Time Notified: 23:57 Method of Notification: Answering Service Nursing Unit Staff Notify [facility] of Tele-Neurology Consult: Yes Reason For Visit: CVA Diagnosis Discharge Diagnosis (1) COPD (chronic obstructive pulmonary disease): Status: Chronic Code(s): J44.9 - Chronic obstructive pulmonary disease, unspecified Qualifiers: COPD type: chronic bronchitis Chronic bronchitis type: simple Qualified Code(s): J41.0 - Simple chronic bronchitis Plan 59-year-old gentleman was admitted for confusion, slurred speech/dysarthria but a stroke evaluation was negative. Patient was found to be intoxicated with whiskey. CT head and neck does not show hemodynamically significant stenosis or LVO. EKG no evidence of acute ischemia. 1. Confusion and slurred speech-secondary to alcohol intoxication, patient's speech has cleared but he is a poor informant. Patient will need a home oxygen qualification test before he is discharged, he is only on 2 L at home with exertion. 02/11: Acute alcohol withdrawal syndrome: Patient has flushed face, shaking with tremors. Patient still requires 4 to 7 L of oxygen. He also has tremors. He said he drinks occasionally about once a week but seems he is drinking more frequently because his answer was not straightforward. Patient on phenobarbital based order set along with other adjunctive medications gabapentin, Bentyl, Vistaril, clonidine, Klonopin as needed for alcohol withdrawal symptom control. Patient is on thiamine and folate acid. CIWA monitor. manager fraud 180 consulted. 02/12: After discussion with the nursing staff patient has chronic tremors and CIWA score is mainly from tremors and no other symptoms. He has chronic tremors from Parkinson's disease therefore phenobarbital discontinued yesterday. It was confirmed from his that he will need drinks twice a week whiskey. #2 chronic hypoxic respiratory failure secondary to severe COPD-pulse ox will be monitored, oxygen will be adjusted if possible 02/11: Patient needs significant amount of oxygen, 7 L high flow. He was similarly 4 to 8 L of oxygen yesterday. Triple PCR for SARS-CoV-2, flu and RSV are negative 02/12: Overall clinical assessment seem mild COPD exacerbation therefore patient discharged on tapering dose of prednisone. Continue baseline inhaler. Continue incentive spirometry and PEP for 1 week. Home oxygen qualification test reviewed. Patient needs 2 L at rest and 6 L on walking. Follow-up in pulmonary clinic. #3 coronary artery disease-stable at this time #4 essential hypertension-patient is controlled. #5 Parkinson's disease-patient is noncompliant with outpatient treatment. Patient has tremors which might be due to Parkinson disease and alcohol withdrawal. Follow-up in neurology clinic Discharge medication reconciliation done. Discharge follow-up instructions completed. Discharge process discussed with the patient and all questions were answered to patient's satisfaction. Follow with PCP in 1 to 2 weeks Total time spent, exact 35 minutes on discharge meds reconciliation, examination, coordination of care with nurses and ancillary staff, review of imaging and blood test and discussion with the patient on follow-up instructions. Microbiology Past 72 Hours 02/11/25 07:50 Mucosa - Nose SARS-CoV-2, Influenza & RSV (PCR) - Final Laboratory Results 02/11/25 07:26: WBC 15.0 H, RBC 4.80, Hgb 14.7, Hct 42.1, MCV 87.7, MCH 30.6, MCHC 34.9, RDW Std Deviation 48.8 H, RDW Coeff of Jihan 15.3 H, Plt Count 164, MPV 12.3 H, Immature Gran % (Auto) 0.900, Neut % (Auto) 94.6 H, Lymph % (Auto) 3.2 L, [place] % (Auto) 1.2, Eos % (Auto) 0.0, Baso % (Auto) 0.1, Absolute Neuts (auto) 14.2 H, Absolute Lymphs (auto) 0.48 L, Nucleated RBC % 0, Sodium 139, Potassium 4.0, Chloride 105, Carbon Dioxide 22.2, Anion Gap 11, BUN 20 H, Creatinine 0.98, Estim Creat Clear Calc 54.46, Est GFR (MDRD) Non-Af 74, BUN/Creatinine Ratio 20.4 H, Glucose 176 H, Calcium 9.1 Clinical Impression(s) from Imaging Studies Brain MRI 02/09/25 10:20 IMPRESSION: 1. There are no foci of abnormal intracranial contrast enhancement or vasogenic edema to suggest metastatic disease. 2. There is an extra-axial homogeneous lead enhancing nodule in the right frontal region consistent with a meningioma. There is no associated vasogenic edema. 3. Cerebral atrophy and ventriculomegaly. There is chronic ischemic white matter disease. 4. Other findings as noted. Reading Location: [place] [id number] 02/09/25 17:55 IMPRESSION: No large focal consolidation or suspicious lung masses although multiple pulmonary nodules as followinmm pulmonary nodule in the right upper lobe ( series 2, image 34), 4 mm nodule within the right upper lobe (series 2, image 49) and 7 mm nodule at the right base (series 2, image 73). Consider 3-6 month follow-up CT per Fleischner guidelines. Extensive pulmonary emphysema. Trace bibasilar pleural effusions. Extensive mediastinal lymphadenopathy. Reading Location: [id number] Medications at Discharge Home Medications citalopram 20 mg tablet 20 mg PO DAILY DEPRESSION 03/17/14 multivitamin 1 ea PO DAILY HEALTH MINENANCE 05/16/17 tamsulosin 0.4 mg capsule 0.8 mg PO DAILY PROSTATE 09/04/19 ascorbic acid (vitamin C) 1,000 mg tablet 250 mg PO DAILY SUPPLEMENT 01/18/20 atorvastatin 10 mg tablet 10 mg PO DAILY CHOLESTEROL 08/25/20 clopidogrel 75 mg tablet 75 mg PO DAILY BLOOD THINNER 08/25/20 finasteride 5 mg tablet 5 mg PO DAILY PROSTATE 08/26/20 metoprolol succinate 25 mg tablet,extended release 24 hr 25 mg PO DAILY BLOOD PRESSURE 08/01/23 Lactobacillus acidophilus 1 billion cell capsule 1,000 mmu cells PO DAILY supplement #30 caps 08/04/23 hydrochlorothiazide 25 mg tablet 12.5 mg PO DAILY BLOOD PRESSURE 09/07/24 pantoprazole 40 mg tablet,delayed release 40 mg PO DAILY gerd 09/07/24 amlodipine 5 mg tablet 10 mg (2 x 5 mg) PO DAILY bp 30 days #0 tabs 09/15/24 mirtazapine 7.5 mg tablet 7.5 mg PO QHS PRN PRN insomnia 02/08/25 jaden santoroo 450 mg capsule 450 mg PO DAILY prostate 02/08/25 albuterol sulfate 90 mcg/actuation breath activated powder inhaler 2 inh inhalation Q6H PRN shortness of breath or wheezing #1 ea 02/12/25 prednisone 10 mg tablet 10 mg PO DAILY #30 tabs 02/12/25 Physical Exam Narrative Shortness of breath is better upper abdomen looks distended. Currently on 4 L of oxygen Physical exam General: Alert, Oriented x3, Cooperative HEENT: Atraumatic, PERRLA, EOMI, Normocephalic. Oral: No Gingival or Mucosal Lesions/ Ulcerations Neck: Supple, No JVD, Negative Carotid Bruits Chest wall/Lungs: Air entry diminished in bilateral lung bases. Bilateral expiratory rhonchi Cardiovascular: Regular rate and rhythm, Normal S1,S2, systolic murmur Abdomen: Bowel Sounds Present, Soft, Non Tender, upper abdominal distention. Impulse on coughing present, small ventral hernia : No dysuria. No renal angle tenderness. No suprapubic tenderness. Extremities: No edema, Capillary Refill Less than 3 Seconds Skin: No rashes, No breakdown Musculoskeletal: No Tenderness to Palpation of Joints or Extremities. Has tremors in both hands Neurological: Cranial nerves II-XII grossly intact, DTR 2+/4. Rigidity of the muscles at knee and hip joints. Chronic tremors, Parkinson disease Psych/Mental Status: Flat affect Weight / BMI Weight Weight: 155 lb 6.814 oz Body Mass Index (BMI) 22.3 ABG / Lab / Microbiology Data 02/12/25 05:34 02/12/25 05:34 Laboratory: Laboratory Results - last 24 hr 02/11/25 14:59: PT 14.1, INR 1.1 02/11/25 21:33: Urine Opiates Screen NEGATIVE, U Buprenorphine Qual NEGATIVE, Ur Oxycodone Screen NEGATIVE, Urine Methadone Screen NEGATIVE, Urine Fentanyl Screen NEGATIVE, Ur Barbiturates Screen NEGATIVE, Ur Phencyclidine Scrn NEGATIVE, Ur Amphetamines Screen NEGATIVE, U Benzodiazepines Scrn NEGATIVE, Urine Cocaine Screen NEGATIVE, U Cannabinoids Screen NEGATIVE 02/12/25 05:34: WBC 16.3 H, RBC 4.60, Hgb 14.1, Hct 41.1, MCV 89.3, MCH 30.7, MCHC 34.3, RDW Std Deviation 49.9 H, RDW Coeff of Jihan 15.5 H, Plt Count 151, MPV 11.7, Immature Gran % (Auto) 1.500 H, Neut % (Auto) 93.7 H, Lymph % (Auto) 2.9 L, [place] % (Auto) 1.8, Eos % (Auto) 0.0, Baso % (Auto) 0.1, Absolute Neuts (auto) 15.3 H, Absolute Lymphs (auto) 0.47 L, Nucleated RBC % 0, Sodium 140, Potassium 4.6, Chloride 107, Carbon Dioxide 22.8, Anion Gap 10, BUN 26 H, Creatinine 0.88, Estim Creat Clear Calc 58.97, Est GFR (MDRD) Non-Af 83, BUN/Creatinine Ratio 29.2 H, Glucose 157 H, Calcium 9.1 Microbiology: Microbiology 02/11/25 07:50 Mucosa - Nose SARS-CoV-2, Influenza & RSV (PCR) - Final Radiography Diagnostic Testing: Radiology Impression Abdomen X-Ray 02/11/25 08:22 IMPRESSION: Fecal retention in the colon consistent with constipation. Reading Location: [facility] D/C Instructions Weight Bearing Status: Weight bearing as tolerated Call your doctor if you observe: Fever of 101 or Higher, Coldness, Increased Pain, Numbness or Tingling, Change in Color, Inability to urinate, Inability to have a bowel movement, Shortness of breath, Dizziness, Fainting spells, Swelling in the ankles, Chest pain, Prolonged hiccupping, Increased palpitations (irregular heartbeat) and Calf discomfort DC O2, CPAP, BIPAP Needs Home O2 Discharge instructions: Yes Type of respiratory needs?: Oxygen Oxygen frequency: Continuous Continuous oxygen liters per minute: 4 DC home with Oxygen: Yes Home O2 Review: I have reviewed the oxygen testing, and the patient qualifies for home oxygen equipment and portability. The patient is mobile in the home and the community. When: IN 2 WEEKS Meaningful Use Info Meaningful Use Meaningful Use Diagnoses (Choose all that apply): None applicable Discharge Plan Admission Admit Date/Time: 02/10/25 12:18 Primary Reason for Your Visit: COPD exacerbation Attending Provider: John Soliz Primary Care Provider: Brigitte Rico Consulting Providers: Richard Bobo; Bella Caldera; Nayla Nathan; Brittany Mtz; Yin Villalba; Archie Perkins; Bianka Milian; Panchito Turner; Jatin Velazquez; Richard Olivares; Elisha Booker; Yvan Santacruz; Maddy Lind; Sincere Olivera; Sharla Sahni; Maulik Eng; Alessandra Tucker; Uri Martinez; Tere Liriano; Tree Madrid; Janice Sanford; Alexy Vidal Instructions Additional Instructions / Restrictions: Discharge medication reconciliation done. Discharge follow-up instructions completed. Discharge process discussed with the patient and all questions were answered to patient's satisfaction. Follow with PCP in 1 to 2 weeks Total time spent, exact 35 minutes on discharge meds reconciliation, examination, coordination of care with nurses and ancillary staff, review of imaging and blood test and discussion with the patient on follow-up instructions. Discharge Orders/Prescriptions Prescriptions: New prednisone 10 mg tablet 10 mg PO DAILY Qty: 30 0RF Rx Instructions: 40 mg for 3 days 30 mg for 3 days, 20 mg for 3 days,and 10 mg for 3 days albuterol sulfate 90 mcg/actuation aerosol powdr breath activated 2 inh inhalation Q6H PRN (Reason: shortness of breath or wheezing) Qty: 1 0RF Continued tamsulosin 0.4 mg capsule 0.8 mg PO DAILY citalopram 20 MG tablet 20 mg PO DAILY multivitamin 1 EACH tablet 1 ea PO DAILY ascorbic acid (vitamin C) 1,000 MG tablet 250 mg PO DAILY atorvastatin 10 MG tablet 10 mg PO DAILY clopidogrel 75 MG tablet 75 mg PO DAILY finasteride 5 MG tablet 5 mg PO DAILY metoprolol succinate 25 mg tablet extended release 24 hr 25 mg PO DAILY Lactobacillus acidophilus 1 billion cell capsule 1,000 mmu cells PO DAILY Qty: 30 0RF pantoprazole 40 mg tablet,delayed release (DR/EC) 40 mg PO DAILY hydrochlorothiazide 25 mg tablet 12.5 mg PO DAILY amlodipine 5 mg tablet 10 mg PO DAILY 30 Days Qty: 0 0RF saw palmetto 450 mg capsule 450 mg PO DAILY mirtazapine 7.5 mg tablet 7.5 mg PO QHS PRN PRN (Reason: insomnia) Referrals / Follow Up: Brigitte Rico CNS [Primary Care Provider] - 02/17/25 10:00 am Jim Deng MD [Non-Staff -Ordering Privileges] - Within 1 Month (For evaluation of Parkinson disease [employer] called and left a voicemail with the office to call you with an appointment, if you don't hear back from them in 2-3 business days please give the office a call. ) Megan Winslow, PROFESSOR OF APOLOGETICS-C [Med Staff - Adv Practice Prof] - Within 1 Month ([employer] called and left a voicemail with the office to call you with an appointment, if you don't hear back from them in 2-3 business days please give the office a call.) Disposition Disposition (needs filled in before D/C Order can be placed): Home, Self Care
[2025-02-12] MEDS: Thiamine Hydrochloride 100 MG Tablet PO (08:55)
--- NOTE | 2025-02-12 10:13 | CASEMGMT ---
Social Work SW reviewed therapy notes and met with pt to discuss home health services. Pt feels that he is moving better and does not need home therapy at this time. RNCM notified and will follow for home oxygen. LYNDON Parish
--- NOTE | 2025-02-12 11:32 | CASEMGMT ---
Patient requires increase in home oxygen, script received and referral sent to [facility], preferred provider. RN TAYLOR updated patient, patient states he will have portable tank at discharge. ZACKARY VAZQUEZ updated discharge plan.
--- NOTE | 2025-02-12 12:01 | PHA.DC.MC.R ---
Pharmacy [facility] has performed discharge medication reconciliation and counseling for this patient. 1. PREDNISONE 40MG PO DAILY X 3 DAYS, THEN 30MG X 3 DAYS, THEN 20MG X 3 DAYS, THEN 10MG X 3 DAYS The patient's discharge medication list was reviewed for discrepancies and discrepancies were resolved. The patient was counseled on the following discharge medications and changes in medications for homegoing were reviewed. The Reason for Use, instructions for use, and potential side effects were reviewed for all new medications. The patient's questions regarding all of their medications were answered. The patient was able to verbally demonstrate an understanding of their discharge medications. Medications at Discharge Home Medications citalopram 20 mg tablet 20 mg PO DAILY DEPRESSION 03/17/14 multivitamin 1 ea PO DAILY HEALTH MINENANCE 05/16/17 tamsulosin 0.4 mg capsule 0.8 mg PO DAILY PROSTATE 09/04/19 ascorbic acid (vitamin C) 1,000 mg tablet 250 mg PO DAILY SUPPLEMENT 01/18/20 atorvastatin 10 mg tablet 10 mg PO DAILY CHOLESTEROL 08/25/20 clopidogrel 75 mg tablet 75 mg PO DAILY BLOOD THINNER 08/25/20 finasteride 5 mg tablet 5 mg PO DAILY PROSTATE 08/26/20 metoprolol succinate 25 mg tablet,extended release 24 hr 25 mg PO DAILY BLOOD PRESSURE 08/01/23 Lactobacillus acidophilus 1 billion cell capsule 1,000 mmu cells PO DAILY supplement #30 caps 08/04/23 hydrochlorothiazide 25 mg tablet 12.5 mg PO DAILY BLOOD PRESSURE 09/07/24 pantoprazole 40 mg tablet,delayed release 40 mg PO DAILY gerd 09/07/24 amlodipine 5 mg tablet 10 mg (2 x 5 mg) PO DAILY bp 30 days #0 tabs 09/15/24 mirtazapine 7.5 mg tablet 7.5 mg PO QHS PRN PRN insomnia 02/08/25 saw palmetto 450 mg capsule 450 mg PO DAILY prostate 02/08/25 albuterol sulfate 90 mcg/actuation breath activated powder inhaler 2 inh inhalation Q6H PRN shortness of breath or wheezing #1 ea 02/12/25 prednisone 10 mg tablet 10 mg PO DAILY #30 tabs 02/12/25
--- NOTE | 2025-02-12 14:27 | NURSING ---
1330: Patients daughter Cathleen notified that patient is ready for discharge. Per daughters request this RN will call her when we are bringing patient down to main entrance. When asked if she wants to be present for discharge instructions, daughter states she should be because he will be confused. When this RN suggested daughter come to bedside for discharge instructions, she declined. This RN offered to call daughter and go over instructions once completed via phone. Daughter agreed. Daughter then asked to bring patients portable 02 tank with her for travel home. Daughter at first resistant stating the tank is at his house [address] Doesn't [employer] provide one? This RN explained to Cathleen that the patient has his own portable tank therefor [employer] does not provide another one. This RN informed daughter that the patient needs oxygen at rest so he needs his portable tank brought to hospital. Daughter reluctantly agreed. 1415: Daughter Cathleen called- this RN asked if a good time to go over instructions with her now- daughter declined stating she is driving. Daughter then said she is on way to hospital and that we need to bring patient down. This RN then told daughter we can bring him to the main entrance but need to know about the discharge instructions. The daughter then asked well is there anything new?. This RN then told her there are several new prescriptions including new 02 orders and follow up appointments. Daughter then informed that paper work will be sent with patient and if she would like she can review herself and can call unit back if she has any questions. Daughter agreed to this. Patient also declined to go over discharge paper work at bedside- stated he will look at it at home.
--- NOTE | 2025-02-27 23:45 | ED.VIS.STROK ---
HPI History of Present Illness Chief Complaint: Stroke Alert Detail of Chief Complaint: Slurred speech Informant: patient, family and EMS [facility] Medical History (Updated 02/20/25 @ 00:01 by Background Harlan) CVA (cerebral vascular accident) COPD (chronic obstructive pulmonary disease) Chronic hypoxic respiratory failure, on home oxygen therapy Pulmonary hypertension COVID-19 virus detected (08/23/20) Anxiety and depression Chronic anemia Pneumonia due to COVID-19 virus GI bleed (12/2019) Atherosclerosis of coronary artery of [place] heart without angina pectoris Peripheral vascular occlusive disease Hyperlipidemia Essential (primary) hypertension GERD (gastroesophageal reflux disease) BPH (benign prostatic hyperplasia) Incontinence Diverticulosis Home Medications ?Medication ?Instructions ?Recorded ?Last Taken ?Type citalopram 20 mg tablet 20 mg PO DAILY DEPRESSION 03/17/14 02/08/25 History multivitamin 1 ea PO DAILY HEALTH MINENANCE 05/16/17 02/08/25 History tamsulosin 0.4 mg capsule 0.8 mg PO DAILY PROSTATE 09/04/19 02/08/25 History ascorbic acid (vitamin C) 1,000 mg 250 mg PO DAILY SUPPLEMENT 01/18/20 02/08/25 History tablet atorvastatin 10 mg tablet 10 mg PO DAILY CHOLESTEROL 08/25/20 02/08/25 History clopidogrel 75 mg tablet 75 mg PO DAILY BLOOD THINNER 08/25/20 02/08/25 History finasteride 5 mg tablet 5 mg PO DAILY PROSTATE 08/26/20 02/08/25 History metoprolol succinate 25 mg 25 mg PO DAILY BLOOD PRESSURE 08/01/23 02/08/25 History tablet,extended release 24 hr Lactobacillus acidophilus 1 1,000 mmu cells PO DAILY 08/04/23 02/08/25 Rx billion cell capsule supplement #30 caps hydrochlorothiazide 25 mg tablet 12.5 mg PO DAILY BLOOD PRESSURE 09/07/24 02/08/25 History pantoprazole 40 mg tablet,delayed 40 mg PO DAILY gerd 09/07/24 02/08/25 History release amlodipine 5 mg tablet 10 mg (2 x 5 mg) PO DAILY bp 30 09/15/24 02/08/25 Rx days #0 tabs mirtazapine 7.5 mg tablet 7.5 mg PO QHS PRN PRN insomnia 02/08/25 Unknown History saw palmetto 450 mg capsule 450 mg PO DAILY prostate 02/08/25 02/08/25 History albuterol sulfate 90 mcg/actuation 2 inh inhalation Q6H PRN shortness 02/12/25 Unknown Rx breath activated powder inhaler of breath or wheezing #1 ea prednisone 10 mg tablet 10 mg PO DAILY #30 tabs 02/12/25 Unknown Rx Allergy/AdvReac Type Severity Reaction Status Date / Time Sulfa (Sulfonamide Allergy Rash Verified 02/08/25 18:40 Antibiotics) lisinopril AdvReac Other Verified 02/08/25 18:40 Family History Father CVA (cerebral vascular accident) Mother CVA (cerebral vascular accident) Hypertension Surgical History (Updated 02/20/25 @ 00:01 by Cassandra Claros) History of colonoscopy (12/2019) History of coronary artery stent placement (09/08/19) History of angioplasty of peripheral vessel (08/2017) History of herniorrhaphy History of esophagogastroduodenoscopy (EGD) (12/2019) Social History household members: none housing: house Smoking Status: Former smoker how long ago did patient quit smoking: Quit 1999, smoked heavy pipe since youth until quit, occasional cigarette. alcohol intake: current alcohol intake frequency: a few times a week Alcohol type: hard liquor substance use type: does not use MDM MDM Radiography Diagnostic Testing: Clinical Impression(s) from Imaging Studies Brain MRI 02/09/25 10:20 IMPRESSION: 1. There are no foci of abnormal intracranial contrast enhancement or vasogenic edema to suggest metastatic disease. 2. There is an extra-axial homogeneous lead enhancing nodule in the right frontal region consistent with a meningioma. There is no associated vasogenic edema. 3. Cerebral atrophy and ventriculomegaly. There is chronic ischemic white matter disease. 4. Other findings as noted. Reading Location: [place] [id number] 02/09/25 17:55 IMPRESSION: No large focal consolidation or suspicious lung masses although multiple pulmonary nodules as followinmm pulmonary nodule in the right upper lobe ( series 2, image 34), 4 mm nodule within the right upper lobe (series 2, image 49) and 7 mm nodule at the right base (series 2, image 73). Consider 3-6 month follow-up CT per Fleischner guidelines. Extensive pulmonary emphysema. Trace bibasilar pleural effusions. Extensive mediastinal lymphadenopathy. Reading Location: [id number] Discharge Plan Disposition Disposition: Acute Care Hospital [facility] Discharge Date/Time: 02/08/25 19:20
--- NOTE | 2025-02-27 23:45 | ED.VIS.STROK ---
HPI History of Present Illness Chief Complaint: Stroke Alert Detail of Chief Complaint: Slurred speech Informant: patient, family and EMS [facility] Medical History (Updated 02/20/25 @ 00:01 by Background Harlan) CVA (cerebral vascular accident) COPD (chronic obstructive pulmonary disease) Chronic hypoxic respiratory failure, on home oxygen therapy Pulmonary hypertension COVID-19 virus detected (08/23/20) Anxiety and depression Chronic anemia Pneumonia due to COVID-19 virus GI bleed (12/2019) Atherosclerosis of coronary artery of [place] heart without angina pectoris Peripheral vascular occlusive disease Hyperlipidemia Essential (primary) hypertension GERD (gastroesophageal reflux disease) BPH (benign prostatic hyperplasia) Incontinence Diverticulosis Home Medications ?Medication ?Instructions ?Recorded ?Last Taken ?Type citalopram 20 mg tablet 20 mg PO DAILY DEPRESSION 03/17/14 02/08/25 History multivitamin 1 ea PO DAILY HEALTH MINENANCE 05/16/17 02/08/25 History tamsulosin 0.4 mg capsule 0.8 mg PO DAILY PROSTATE 09/04/19 02/08/25 History ascorbic acid (vitamin C) 1,000 mg 250 mg PO DAILY SUPPLEMENT 01/18/20 02/08/25 History tablet atorvastatin 10 mg tablet 10 mg PO DAILY CHOLESTEROL 08/25/20 02/08/25 History clopidogrel 75 mg tablet 75 mg PO DAILY BLOOD THINNER 08/25/20 02/08/25 History finasteride 5 mg tablet 5 mg PO DAILY PROSTATE 08/26/20 02/08/25 History metoprolol succinate 25 mg 25 mg PO DAILY BLOOD PRESSURE 08/01/23 02/08/25 History tablet,extended release 24 hr Lactobacillus acidophilus 1 1,000 mmu cells PO DAILY 08/04/23 02/08/25 Rx billion cell capsule supplement #30 caps hydrochlorothiazide 25 mg tablet 12.5 mg PO DAILY BLOOD PRESSURE 09/07/24 02/08/25 History pantoprazole 40 mg tablet,delayed 40 mg PO DAILY gerd 09/07/24 02/08/25 History release amlodipine 5 mg tablet 10 mg (2 x 5 mg) PO DAILY bp 30 09/15/24 02/08/25 Rx days #0 tabs mirtazapine 7.5 mg tablet 7.5 mg PO QHS PRN PRN insomnia 02/08/25 Unknown History saw palmetto 450 mg capsule 450 mg PO DAILY prostate 02/08/25 02/08/25 History albuterol sulfate 90 mcg/actuation 2 inh inhalation Q6H PRN shortness 02/12/25 Unknown Rx breath activated powder inhaler of breath or wheezing #1 ea prednisone 10 mg tablet 10 mg PO DAILY #30 tabs 02/12/25 Unknown Rx Allergy/AdvReac Type Severity Reaction Status Date / Time Sulfa (Sulfonamide Allergy Rash Verified 02/08/25 18:40 Antibiotics) lisinopril AdvReac Other Verified 02/08/25 18:40 Family History Father CVA (cerebral vascular accident) Mother CVA (cerebral vascular accident) Hypertension Surgical History (Updated 02/20/25 @ 00:01 by Cassandra Claros) History of colonoscopy (12/2019) History of coronary artery stent placement (09/08/19) History of angioplasty of peripheral vessel (08/2017) History of herniorrhaphy History of esophagogastroduodenoscopy (EGD) (12/2019) Social History household members: none housing: house Smoking Status: Former smoker how long ago did patient quit smoking: Quit 1999, smoked heavy pipe since youth until quit, occasional cigarette. alcohol intake: current alcohol intake frequency: a few times a week Alcohol type: hard liquor substance use type: does not use MDM MDM Radiography Diagnostic Testing: Clinical Impression(s) from Imaging Studies Brain MRI 02/09/25 10:20 IMPRESSION: 1. There are no foci of abnormal intracranial contrast enhancement or vasogenic edema to suggest metastatic disease. 2. There is an extra-axial homogeneous lead enhancing nodule in the right frontal region consistent with a meningioma. There is no associated vasogenic edema. 3. Cerebral atrophy and ventriculomegaly. There is chronic ischemic white matter disease. 4. Other findings as noted. Reading Location: [place] [id number] 02/09/25 17:55 IMPRESSION: No large focal consolidation or suspicious lung masses although multiple pulmonary nodules as followinmm pulmonary nodule in the right upper lobe ( series 2, image 34), 4 mm nodule within the right upper lobe (series 2, image 49) and 7 mm nodule at the right base (series 2, image 73). Consider 3-6 month follow-up CT per Fleischner guidelines. Extensive pulmonary emphysema. Trace bibasilar pleural effusions. Extensive mediastinal lymphadenopathy. Reading Location: [id number] Discharge Plan Disposition Disposition: Acute Care Hospital [facility] Discharge Date/Time: 02/08/25 19:20
--- NOTE | 2025-02-27 23:47 | EDS_ITS ---
HPI History of Present Illness Chief Complaint: Stroke Alert Detail of Chief Complaint: Stroke alert Informant: patient, family and EMS Narrative Narrative: Patient presents to the emergency department via EMS from home for concern for possible stroke. Patient had just gotten up from a nap and sat down and talk to his son would come over. Patient then apparently try to get up and slid to the floor and his son caught him he did not injure himself. He seemed to be slurring his words. Apparently had been sipping on whiskey but he is not a heavy drinker. Last known well was 1300. Patient with history of CAD as well as hypertension and hyperlipidemia. He denies headache. Denies chest pain. Denies focal weakness. [facility] Medical History (Updated 02/27/25 @ 23:[address] Shahab Teixeira, ) CVA (cerebral vascular accident) COPD (chronic obstructive pulmonary disease) Chronic hypoxic respiratory failure, on home oxygen therapy Pulmonary hypertension COVID-19 virus detected (08/23/20) Anxiety and depression Chronic anemia Pneumonia due to COVID-19 virus GI bleed (12/2019) Atherosclerosis of coronary artery of [place] heart without angina pectoris Peripheral vascular occlusive disease Hyperlipidemia Essential (primary) hypertension GERD (gastroesophageal reflux disease) BPH (benign prostatic hyperplasia) Incontinence Diverticulosis Home Medications ?Medication ?Instructions ?Recorded ?Last Taken ?Type citalopram 20 mg tablet 20 mg PO DAILY DEPRESSION 02/08/25 History multivitamin 1 ea PO DAILY HEALTH MINENAN CE 05/16/17 02/08/25 History tamsulosin 0.4 mg capsule 0.8 mg PO DAILY PROSTATE 01/1602/08/25 History ascorbic acid (vitamin C) 1,000 mg 250 mg PO DAILY SUP PLEMENT 01/18/20 02/08/25 History tablet atorvastatin 10 mg tablet 10 mg PO DAILY CHOLESTEROL 0 08/25/20 02/08/25 History clopidogrel 75 mg tablet 75 mg PO DAILY BLOOD THINNER 08/25/20 02/08/25 History finasteride 5 mg tablet 5 mg PO DAILY PROSTATE 08/2602/08/25 History metoprolol succinate 25 mg 25 mg PO DAILY BLOOD PRESSU RE 08/01/23 02/08/25 History tablet,extended release 24 hr Lactobacillus acidophilus 1 1,000 mmu cells PO DAILY 0 08/04/23 02/08/25 Rx billion cell capsule supplement #30 caps hydrochlorothiazide 25 mg tablet 12.5 mg PO DAILY BLOO D PRESSURE 09/07/24 02/08/25 History pantoprazole 40 mg tablet,delayed 40 mg PO DAILY gerd 09/07/24 02/08/25 History release amlodipine 5 mg tablet 10 mg (2 x 5 mg) PO DAILY bp 30 09/15/24 02/08/25 Rx days #0 tabs mirtazapine 7.5 mg tablet 7.5 mg PO QHS PRN PRN insomn ia 02/08/25 Unknown History saw palmetto 450 mg capsule 450 mg PO DAILY prostate 0 02/08/25 02/08/25 History albuterol sulfate 90 mcg/actuation 2 inh inhalation Q6 H PRN shortness 02/12/25 Unknown Rx breath activated powder inhaler of breath or wheezing #1 ea prednisone 10 mg tablet 10 mg PO DAILY #30 tabs 01/27 02/20 Unknown Rx Allergy/AdvReac Type Severity Reaction Status Date / Time Sulfa (Sulfonamide Allergy Rash Verified 02/08/25 18:40 Antibiotics) lisinopril AdvReac Other Verified 02/08/25 18:40 Family History Father CVA (cerebral vascular accident) Mother CVA (cerebral vascular accident) Hypertension Surgical History (Updated 02/20/25 @ 00:01 by Cassandra Claros) History of colonoscopy (12/2019) History of coronary artery stent placement (09/08/19) History of angioplasty of peripheral vessel (08/2017) History of herniorrhaphy History of esophagogastroduodenoscopy (EGD) (12/2019) Social History household members: none housing: house Smoking Status: Former smoker how long ago did patient quit smoking: Quit 1999, smoked heavy pipe since youth until quit, occasional cigarette. alcohol intake: current alcohol intake frequency: a few times a week Alcohol type: hard liquor substance use type: does not use ROS ROS ED Review of Systems ROS Unobtainable: other Constitutional Constitutional ED: Reports lethargy; Denies chills, fever(s), sweats or weight loss Eyes Eyes: Denies blurry vision, change in vision or diplopia ENT ENT ED: Denies rhinorrhea or sore throat Cardiovascular Cardiovascular: Denies chest pain, orthopnea or racing heartbeat Respiratory/Chest Respiratory/Chest: Denies cough, dyspnea, dyspnea on exertion, orthopnea or sputum Gastrointestinal Gastrointestinal: Denies abdominal pain, diarrhea, nausea or vomiting Genitourinary Genitourinary ED: Denies dysuria, hematuria or urinary frequency Musculoskeletal Musculoskeletal: Denies arthralgias, back pain, myalgias or neck pain Integumentary Denies abscess, Abrasions or rash Neurologic Neurologic: Reports other Details: Slurred speech ; Denies headache(s) or weakness Psychiatric Psychiatric: Denies anxiety, depression or suicidal thoughts Endocrine Endocrinology: Denies polydipsia, polyphagia or polyuria Hematologic/Lymphatic Hematologic/Lymphatic: Denies easy bleeding, easy bruising or lymphadenopathy Allergic/Immunologic Allergic/Immunologic ED: Denies mouth swelling, tongue swelling or urticaria EXAM Physical Exam Const Positive well nourished and well developed General Appearance ED: well developed and NAD HEENT Reports TM's clear and moist mucous membranes normocephalic and atraumatic; Negative for trauma or tenderness Tympanic Membrane ED: Yes TM's clear Eyes PERRL and EOMs intact bilaterally General Eye ED: Negative for pale conjunctiva or scleral icterus Neck no lymphadenopathy, supple and no JVD General: Negative for tenderness Chest Wall inspection of chest normal and palpation of chest normal Chest: Negative for tenderness Resp normal respiratory effort and clear to auscultation bilaterally Effort and Inspection: Negative for respiratory distress or pain with movement Auscultation: Negative for rhonchi, wheezes or diminished lung sounds Cardio regular rate, regular rhythm, S1 normal heart sound, S2 normal heart sound and no murmurs Peripheral Pulses: pulses 2+ throughout GI normal to inspection, nondistended, normoactive bowel sounds, soft to palpation, non-tender, non-distended and no masses Back/Spine no CVA tenderness and no thoracic nor lumbar tenderness Extremity normal to inspection General Extremety ED: Negative for edema General Extremity: Negative for edema Neuro oriented x3, CN's II-XII intact bilaterally, no sensory deficits noted and gait normal Neuro Narrative: No focal weakness on exam. Mildly slurred speech. NIH stroke scale of 1. Sensorium / Orientation: awake, alert, oriented to person, oriented to place and oriented to time Motor Exam: strength 5/5 throughout and strength abnormal Psych mental status grossly normal Skin no rashes or lesions noted and no wounds MDM MDM MDM Narrative Medical decision making narrative: Patient presents with concern for possible stroke. Stroke team was called. He is not a thrombolytic candidate. Patient was seen by stroke neurologist who agreed that did not meet thrombolytic criteria. CT scan of the brain without contrast showed no acute intracranial hemorrhage. Right frontal lobe meningioma noted. CTA head and neck without large vessel occlusion or acute process. CBC with differential unremarkable. Chemistries unremarkable. Troponin slightly elevated at 29. Alcohol level elevated to 223. Case discussed with hospitalist will evaluate patient for admission for concern for stroke versus alcohol intoxication. CTA of the chest was obtained which showed no PE. He did have a right upper lobe mass for which she will need further evaluation. Lab Data Attestation: I reviewed the patient's lab results. Radiography Diagnostic Testing: Clinical Impression(s) from Imaging Studies Brain MRI 02/09/25 10:20 IMPRESSION: 1. There are no foci of abnormal intracranial contrast enhancement or vasogenic edema to suggest metastatic disease. 2. There is an extra-axial homogeneous lead enhancing nodule in the right frontal region consistent with a meningioma. There is no associated vasogenic edema. 3. Cerebral atrophy and ventriculomegaly. There is chronic ischemic white matter disease. 4. Other findings as noted. Reading Location: [place] [id number] 02/09/25 17:55 IMPRESSION: No large focal consolidation or suspicious lung masses although multiple pulmonary nodules as followinmm pulmonary nodule in the right upper lobe ( series 2, image 34), 4 mm nodule within the right upper lobe (series 2, image 49) and 7 mm nodule at the right base (series 2, image 73). Consider 3-6 month follow-up CT per Fleischner guidelines. Extensive pulmonary emphysema. Trace bibasilar pleural effusions. Extensive mediastinal lymphadenopathy. Reading Location: [facility] EKG Initial EKG: Attestation: I personally reviewed and interpreted this EKG as follows: Comments: Sinus rhythm with ventricular rate of 62 bpm with no acute ST segment changes Discharge Plan Dx/Rx/DC Orders Clinical Impression: Essential (primary) hypertension, Dysarthria, Alcohol intoxication Disposition Disposition: Acute Care Hospital [facility] Discharge Date/Time: 02/08/25 19:20 NIHSS NIHSS 1a. Level of Consciousness: 0 - Alert; keenly responsive 1b. LOC Questions: 0 - Answers BOTH questions correctly 1c. LOC Commands: 0 - Performs BOTH tasks correctly 2. Best Gaze: 0 - Normal 3. Visual: 0 - No visual loss 4. Facial Palsy: 0 - Normal symmetrical movements 5a. Left Arm: 0 - No drift; arm holds 90 (or 45) degrees for full 10 seconds 5b. Right Arm: 0 - No drift; arm holds 90 (or 45) degrees for full 10 seconds 6a. Left Le - No drift; leg holds 30-degree position for full 5 seconds 6b. Right Le - No drift; leg holds 30-degree position for full 5 seconds 7. Limb Ataxia: 0 - Absent 8. Sensory: 0 - Normal; no sensory loss 9. Best Language: 0 - No aphasia; normal 10. Dysarthria: 1 = [id number] dysarthria; 11. Extinction and Inattention: 0 - No abnormality Total: 1 Stroke Questions Stroke Team Activated: Yes Reviewed Inclusion/Exclusion criteria: Yes IV Thrombolytic Administered: No
== END 2025-02-12 14:39 | disposition home or self-care (01) | DRG 917 ==
LOC: ED 19:20 → PCU 21:12
PROVIDERS: Internal Medicine; Admitting Provider Family Medicine; Emergency Provider Emergency Medicine; PCP Clinical Nurse Specialist Adult Health; Visit Provider Internal Medicine
DX: T51.0X1A Toxic effect of ethanol, accidental (unintentional), initial encounter (principal); G92.8 Other toxic encephalopathy; J96.11 Chronic respiratory failure with hypoxia; F10.239 Alcohol dependence with withdrawal, unspecified; I27.20 Pulmonary hypertension, unspecified; Z66 Do not resuscitate; G20.A1 Parkinson's disease without dyskinesia, without mention of fluctuations; N18.30 Chronic kidney disease, stage 3 unspecified; J43.9 Emphysema, unspecified; I12.9 Hypertensive chronic kidney disease with stage 1 through stage 4 chronic kidney disease, or unspecified chronic kidney disease; F32.A Depression, unspecified; D32.0 Benign neoplasm of cerebral meninges; E78.5 Hyperlipidemia, unspecified; I25.10 Atherosclerotic heart disease of native coronary artery without angina pectoris; K21.9 Gastro-esophageal reflux disease without esophagitis; F41.9 Anxiety disorder, unspecified; J44.89 Other specified chronic obstructive pulmonary disease; F10.229 Alcohol dependence with intoxication, unspecified; Z91.148 Patient's other noncompliance with medication regimen for other reason; T42.8X6A Underdosing of antiparkinsonism drugs and other central muscle-tone depressants, initial encounter; Y90.7 Blood alcohol level of 200-239 mg/100 ml; R91.1 Solitary pulmonary nodule; N40.0 Benign prostatic hyperplasia without lower urinary tract symptoms; R47.1 Dysarthria and anarthria; R47.81 Slurred speech; R59.0 Localized enlarged lymph nodes; Z99.81 Dependence on supplemental oxygen; Z79.899 Other long term (current) drug therapy; Z87.891 Personal history of nicotine dependence
CPT/HCPCS: 36415; 70553; 71260; 74019; 80048; 80053; 80061; 80307; 81001; 82077; 83036; 83735; 84100; 84443; 84484; 85025; 85610; 85730; 87631; 92523; 93005; 94640; 94660; 94668; 94762; 97110; 97116; 97162; 97165; 97530; 97535; 97802; 99285; A9575; Q9967; A4216